=== PATIENT | female | born 1955 | race Caucasian/White ===

== ENCOUNTER → 2017-08-29 13:39 | Outpatient (CLI) | payer OTHER, SELFPAY ==
--- NOTE | 2017-08-29 14:00 | ECHOD_ITS ---
Reason For Study: HTN Procedure This was a 2D Doppler, Color Flow transthoracic echocardiogram. Exam performed in department. Left Ventricle Normal LV size. Left ventricular systolic function is lower limits of normal. The estimated ejection fraction is 52 %. Transmitral diastolic flow velocities suggest mild (stage 1) diastolic dysfunction (reversed pattern). No regional wall motion abnormalities noted. Right Ventricle Normal RV size. Normal systolic function. Atria Normal left atrium. Normal right atrium. Mitral Valve Normal mitral valve. Tricuspid Valve Normal tricuspid valve. Mild tricuspid valve insufficiency. Pulmonary artery systolic pressure is 27 mmHg. Aortic Valve Normal aortic valve. Trisinus/trileaflet aortic valve. Pulmonic Valve Normal pulmonic valve. Great Vessels Normal aortic root. The pulmonary artery is normal size. Normal inferior vena cava. Pericardium/Pleural No pericardial effusion. MMode/2D Measurements & Calculations LVIDd: 3.9 cm IVSd: 0.98 cm Ao root diam: 3.1 cm LVIDs: 2.6 cm LVPWd: 1.1 cm LA dimension: 3.8 cm RVDd: 3.2 cm FS: 32.3 % LAV(MOD-bp): 48.0 ml LA A4 area: 19.2 cm2 RA A4 area: 12.3 cm2 LAV(MOD-bp) Indexed: 26.0 ml/m2 LAV(MOD-sp2): 35.2 ml LAV(MOD-sp4): 56.1 ml Doppler Measurements & Calculations MV E max deion: 71.3 cm/sec Lat Peak E' Deion: 8.7 cm/sec Med Peak E' Deion: 4.9 cm/sec MV A max deion: 103.6 cm/sec E/E' lat: 8.2 E/E' med: 14.5 MV E/A: 0.69 Ao V2 max: 131.9 cm/sec LV V1 max: 89.1 cm/sec PA V2 max: 99.3 cm/sec Ao max P.0 mmHg LV V1 max P.2 mmHg TR max deion: 235.7 cm/sec TR max P.7 mmHg Interpretation Summary Normal LV size. Left ventricular systolic function is lower limits of normal. The estimated ejection fraction is 52 %. Transmitral diastolic flow velocities suggest mild (stage 1) diastolic dysfunction (reversed pattern). Compared to prior study, there is no significant change. Ordering Physician: Mayco Galeano Referring Physician: Mitch Mejia Performed By: Izzy Jensen RDCS
== END ==
PROVIDERS: Family Provider Family Medicine; PCP Family Medicine; Visit Provider Internal Medicine Cardiovascular Disease
DX: I42.9 Cardiomyopathy, unspecified (principal); I10 Essential (primary) hypertension
CPT/HCPCS: 93306

== ENCOUNTER → 2018-05-05 15:35 | Outpatient (CLI) | payer OTHER, SELFPAY ==
--- NOTE | 2018-05-05 15:37 | ECHODONC_ITS ---
Reason For Study: CMP/ CHEMOTHERAPY Procedure This was a 2D Doppler, Color Flow transthoracic echocardiogram. Myocardial strain analysis was performed in this exam to aid in the assessment of cardiac function. Exam performed in department. Left Ventricle Normal LV size. Left ventricular systolic function is lower limits of normal. The estimated ejection fraction is 53 %. The global longitudinal strain = -19.4 % (normal). Stage 1 diastolic dysfunction. No regional wall motion abnormalities noted. Right Ventricle Normal RV size. Normal systolic function. Atria Normal left atrium. Normal right atrium. Mitral Valve Normal mitral valve. Mild (1+) eccentric mitral valve insufficiency. Tricuspid Valve Normal tricuspid valve. Mild (1+) tricuspid valve insufficiency. Pulmonary artery systolic pressure is 27 mmHg. Aortic Valve Trisinus/trileaflet aortic valve. Pulmonic Valve Normal pulmonic valve. Great Vessels Normal aortic root. The pulmonary artery is normal size. Normal inferior vena cava. Pericardium/Pleural No pericardial effusion. MMode/2D Measurements & Calculations LVIDd: 4.1 cm IVSd: 0.76 cm Ao root diam: 3.4 cm LVIDs: 3.0 cm LVPWd: 0.82 cm RVDd: 3.0 cm FS: 28.4 % LAV(MOD-sp4): 34.7 ml LVAd ap4: 28.7 cm2 SV(MOD-sp4): 45.9 ml EDV(MOD-sp4): 86.1 ml EDV(sp4-el): 89.2 ml LVAs ap4: 17.3 cm2 ESV(MOD-sp4): 40.2 ml ESV(sp4-el): 41.2 ml EF(MOD-sp4): 53.3 % EF(sp4-el): 53.8 % SV(sp4-el): 48.0 ml LA A4 area: 14.5 cm2 LA dimension(2D): 3.0 cm RA A4 area: 8.7 cm2 Time Measurements MV dec time: 0.30 sec Doppler Measurements & Calculations MV E max deion: 54.8 cm/sec Lat Peak E' Deion: 6.8 cm/sec Med Peak E' Deion: 4.3 cm/sec MV A max deion: 96.7 cm/sec E/E' lat: 8.1 E/E' med: 12.7 MV E/A: 0.57 Ao V2 max: 110.9 cm/sec LV V1 max: 92.4 cm/sec PA V2 max: 115.4 cm/sec Ao max P.9 mmHg LV V1 max P.4 mmHg TR max deion: 241.8 cm/sec TR max P.5 mmHg Interpretation Summary Normal LV size. Left ventricular systolic function is lower limits of normal. The estimated ejection fraction is 53 %. The global longitudinal strain = -19.4 % (normal). Stage 1 diastolic dysfunction. Pulmonary artery systolic pressure is 27 mmHg. Ordering Physician: Mayco Galeano Referring Physician: Mayco Galeano Performed By: Pilar Villeda, RDCLARISA, RVT
--- OUTSIDE RECORDS SUMMARY | 2018-06-30 14:36 | XMS RPT_ITS ---
:1955 Author Organization OHIP Care Team Providers Name Role Phone CAITY COTE ([facility]) Referring Unavailable CAITY COTE ([facility]) Referring Unavailable MASCRajiv, RIP Borja Referring Unavailable MASCI, RIP Borja Referring Unavailable MASCI, RIP Borja Attending Unavailable MASCI, RIP A Referring Unavailable MASCI, RIP A Referring Unavailable MASCI, RIP A Referring Unavailable MASCI, RIP A Referring Unavailable MASCI, RIP A Referring Unavailable CAITY COTE ([facility]) Attending Unavailable RIP RIVERS Referring Unavailable ENEIDA HUERTAS ([facility]) Attending Unavailable CAITY COTE ([facility]) Referring Unavailable MASCRajiv, RIP A Referring Unavailable MASCRajiv, RIP A Referring Unavailable CAITY COTE ([facility]) Referring Unavailable LEEANNA DORADO Attending Unavailable MASCI, RIP Borja Referring Unavailable LEEANNA DORADO Attending Unavailable MASCRajiv, RIP Borja Referring Unavailable CAITY COTE ([employer]) Referring Unavailable CAITY COTE ([employer]) Attending Unavailable CAITY COTE ([employer]) Referring Unavailable MASCI, RIP Borja Referring Unavailable ENEIDA HUERTAS ([employer]) Attending Unavailable CAITY COTE ([employer]) Referring Unavailable Waleska, Midland Attending Unavailable Masci, Rip Referring Unavailable TOMARMNADO KLEIN Primary Care Unavailable Waleska, [place] Attending Unavailable Masci, Rip Referring Unavailable Waleska, Mayco Attending Unavailable Waleska, Mayco Referring Unavailable Waleska, Mayco Attending Unavailable Waleska, Mayco Referring Unavailable TOMARMANDO KLEIN Primary Care Unavailable Riki, Rip Consulting Unavailable Waleska, Mayco Attending Unavailable Waleska, Midland Referring Unavailable Waleska, [place]land Attending Unavailable TOMCHAK, ARMANDO Referring Unavailable Waleska, Mayco Attending Unavailable Waleska, Amyco Referring Unavailable TOMERNIE, ARMANDO Primary Care Unavailable Silvestre, Rip Consulting Unavailable Waleska, Mayco Attending Unavailable TOMCHAK, ARMANDO Referring Unavailable PROBLEMS PROBLEMS DATE TYPE CONDITION / CODE ATTENDING STATUS SOURCE 05/18/2018 Active Encounter for Active [facility] screening mammogram [facility] Main for malignant neoplasm [place] of breast / Repository Z12.31(ICD-10) 05/09/2018 Unknown I42.9 - Waleska, Mayco Active [place] [facility]omy[facility], Community unspecified / Hospital I42.9(ICD-10) Repository 11/29/2017 Unknown Z51.11 - Encounter for Waleska, Midland Active [facility] antineoplastic [facility] chemotherapy / Hospital Z51.11(ICD-10) Repository 08/29/2017 Unknown I10 - Essential Waleska, Mayco Active [place] (primary) hypertension Community / I10(ICD-10) Hospital Repository 07/26/2017 Active Toxic gastroenteritis NA Active [facility] and colitis / Clinic Main K52.1(ICD-10) [place] Repository 07/26/2017 Active Adverse effect of NA Active [facility] antineoplastic and Clinic Main immunosuppressive [place] drugs, initial Repository encounter / T45.1X5A(ICD-10) 03/02/2017 Active Malignant neoplasm of [facility] lower-inner quadrant Clinic Main of right female breast [place] / C50.311(ICD-10) Repository 03/02/2017 Active Estrogen receptor NA Active [facility] positive status (ER+) [facility] / Z17.0(ICD-10) [place] Repository 05/24/2017 Active Unknown / UNK(Unknown) NA Active [facility] Repository PROCEDURES PROCEDURES No Procedure Records FoundRESULTS RESULTS CNOV Observed: 05/18/2018 Status: COMPLETED Source: [place] 3:[address] [facility] REPOSITORY Office Visit (WOOB) RENATE CHRISTIANSEN Jonh ([id number]) 1955 F TAHIRA Date Time Provider Department 05/18/18 3:00 PM ENEIDA HUERTAS ([place]) WOOB During your visit today, we recorded the following information about you: Blood pressure Weight Height 122/74 93.9 kg 1.549 m Eneida Huertas APRN.CNP 05/18/2018 2:42 PM Signed Renate Christiansen is a 62 year old who presents for her annual gynecologic exam without complaints. Postmenopausal: Yes HRT use: No. Last Pap: 2016 normal HPV: 2016 negative History of abnormal pap: Yes Last mammogram: 2017 normal History of abnormal mammogram: Yes Sexually active: Yes Pain with intercourse: No Postcoital bleeding: No Vaginal dryness: Yes Obstetric History T0 L2 SAB0 TAB0 Ectopic0 Multiple0 Live Births0 PAST MEDICAL HISTORY Diagnosis Date - Breast cancer (HCC) - Scoliosis PAST SURGICAL HISTORY Procedure Laterality Date - APPENDECTOMY - BREAST BIOPSY Right toxoplasmosis/cyst removal - BREAST LUMPECTOMY HX 02/26/2016 right - CHG DELIVERY x2 - COLONOSCOPY 2013 X2 - PAST SURGICAL HISTORY OF back surgery for scoliosis X2 - PAST SURGICAL HISTORY OF 05/2014 pre cancerous mole removed from back - TUBAL LIGATION HX FAMILY HISTORY Problem Relation Age of Onset - Cancer Maternal Grandfather testicular - Cancer Mother melanoma SOCIAL HISTORY Social History Substance Use Topics - Smoking status: Never Smoker - Smokeless tobacco: Never Used - Alcohol use No REVIEW OF SYSTEMS Abdomen: No abdominal pain, nausea, vomiting, diarrhea, or constipation. No bloating, early satiety, indigestion, or increased flatulence. Bladder: No dysuria, gross hematuria, urinary frequency, urinary urgency, or incontinence Breast: No breast lumps, nipple d/c, overlying skin changes, redness or skin retraction Allergies and current medication updated:Yes EXAM: Ht 5' 1 (1.55m) Wt 207 lb (93.9kg) BMI 39.13 kg/(m2). GENERAL: pleasant, female in no apparent distress HEENT: Normocephalic, atraumatic, mucus membranes moist and no lesions NECK: Supple, full range of motion, no adenopathy and thyroid normal DERMATOLOGY: Normal, without lesions, non-icteric and non-hirsute BREAST: soft, non-tender, symmetric, no dominant mass, normal nipple-areolar complex, no lymphadenopathy and no nipple discharge CHEST: Normal inspiratory effort ABDOMEN: soft, non-tender and no masses PELVIC: external genitalia normal, normal Bartholin's glands, urethra, [place]'s glands, no vulvar lesions, no cervical lesions, physiologic discharge present, normal appearing perineal body and perianal region BIMANUAL: uterus normal size, shape and consistency, no adnexal masses, non-tender and no cervical motion tenderness RECTOVAGINAL: deferred. NEURO: alert and oriented x3,exam grossly non-focal EXTREMITIES: normal ASSESSMENT/PLAN: 1) Health maintenance: Pap done with HPV. Mammogram up to date Nutrition, exercise and routine health maintenance exams reviewed. Calcium/Vitamin D supplementation information provided. 2) Follow up one year or sooner as needed Eneida Huertas APRN.[employer] SUPERVISOR Referring Provider: CAITY COTE [[id number]] Allergies As of Date: 05/18/2018 Noted Allergy Reaction NERATINIB 07/27/2017 4 - Hives Comments: Hives/itching/ nausea vomiting and diarrhea AMOXIL (AMOXICILLIN) 02/20/2016 2 - Rash ASPIRIN 02/20/2016 14 - Other: See Comments Comments: Internal bleeding CEPHALOSPORINS 02/20/2016 16 - Unknown CIPROCINONIDE 02/20/2016 16 - Unknown CODEINE 02/20/2016 16 - Unknown DEMEROL (MEPERIDINE (PF)) 02/20/2016 16 - Unknown ERYTHROMYCIN 02/20/2016 16 - Unknown LATEX 03/18/2016 2 - Rash NORCO (HYDROCODONE-ACETAMINOPHEN) 03/04/2016 4 - Hives NUBAIN (NALBUPHINE HCL) 02/20/2016 16 - Unknown PERCOCET (OXYCODONE-ACETAMINOPHEN)03/29/2016 2 - Rash 9 - Itching PREDNISONE 02/20/2016 16 - Unknown Comments: per pt, this was given when had appendicitis and received multiple meds and she developed a rash and they had given her prednisone but at some point it was thought that it wasn't working and maybe it was part of the problem. RYE 02/20/2016 14 - Other: See Comments Comments: Migraine headache SULFA (SULFONAMIDE ANTIBIOTICS) 02/20/2016 14 - Other: See Comments Comments: Fever/Gi upset/listless Date Reviewed: 05/18/2018 [facility]ed [facility]: [facility] Kiya - Fully Assessed Reason for Visit: Yearly Exam [187] Primary Visit Diagnosis:Encounter for gynecological examination (general) (routine) without abnormal findings [Z01.419] Other Visit Diagnoses:Encounter for screening mammogram for breast cancer [Z12.31] Screening for malignant neoplasm of cervix [Z12.4] Special screening examination for human papillomavirus (HPV) [Z11.51] Order(s):MAXIM SCREENING [[id number]] Order #: [id number] FUTURE PAP FLUID CERVICAL SCREENING [[id number]] Order #: [id number] Prescriptions as of 05/18/2018 Sig: ANASTROZOLE 1 MG TABLET TAKE 1 TABLET BY MOUTH ONCE D* CALCIUM+D ORAL Take 1 tablet by mouth once d* COMPOUNDED PRESCRIPTION Cumin and tumeric 500mg daily DIPHENHYDRAMINE 25 MG TABLET Take 25 mg by mouth twice juan luis* DIPHENOXYLATE-ATROPINE 2.5 MG* Take 1-2 tablets by mouth sohail* GABAPENTIN 300 MG CAPSULE Take 1 capsule by mouth once * LIDOCAINE-PRILOCAINE 2.5 %-2.* Apply to port site 20 min.roxanne* LOSARTAN 50 MG TABLET Take 50 mg by mouth once vivek* MULTIVITAMIN TABLET Take 1 tablet by mouth once d* PROMETHAZINE 25 MG TABLET Take 1 tablet by mouth every * TRAMADOL 50 MG TABLET Take 1 tablet by mouth every * Problem List As Of Date 05/18/2018 Noted Resolved Malignant neoplasm of lower-inner quadrant of r*INVALID FOR* 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 Follow-up and Disposition History Recorded Encounter Status:Closed by ENEIDA HUERTAS on 05/18/18 HPV W/GENOTYPE Collected: 05/18/2018 Status: F Source: [place] 2:[address] [facility] REPOSITORY TYPE CODE TESTS RESULT OUT OF REFERENCE UNITS RANGE LAB HPVT16 HPV HighRisk Negative for Type 16 HPV DNA high risk type 16 by PCR. LAB HPVT18 HPV HighRisk Negative for Type 18 HPV DNA high risk type 18 by PCR. LAB HPVHRO HPV HighRisk Negative for Other HPV DNA high risk types: 31,33,35,39,45 ,51,52,56,58,5 9,66,68 by PCR. Result Comment: This test was developed and its performance characteristics determined by [facility]'s [facility] [place] ([facility] It has not been cleared or approved by the FDA. -[facility] is regulated under CLIA as qualified to perform high-complexity testing. This test is used for clinical purposes. It should not be regarded as inv estigational or for research. Performed By: #### HPVHRR #### [facility] [address], [place] [address] CNCO Observed: 05/18/2018 Status: COMPLETED Source: [place] 2:[address] [facility] REPOSITORY HNO ID: [id number] Author: Mammography Coordinator Service: (none) Author Type: Physician Type: Letter Filed: 05/22/2018 11:31 PM Note Text: May 18, 2018 PID: [id number] Renate BorjaPablo Christiansen [address] [place] [address] Dear Ms. Christiansen, We are pleased to inform you that the results of your recent breast imaging exam on 05/18/2018 are normal. Your mammogram demonstrates that you have dense breast tissue, which could hide abnormalities. Dense breast tissue, in and of itself, is a relatively common condition. Therefore, this information is not provided to cause undue concern; rather, it is to raise your awareness and promote discussion with your health care provider regarding the presence of dense breast tissue in addition to other risk factors. Early detection of cancer is very important. We also understand recommendations regarding breast cancer screening are controversial. Please discuss with your primary care provider which strategy is best for you and whether a mammogram is right for you. Your imaging studies and report will be kept on file at [facility] as part of your permanent medical record and are available for your continuing care. Thank you for allowing us to help in meeting your health care needs. Sincerely, Dr. Lucas Interpreting Radiologist [facility] (Normal over 40) PROGRESS Observed: 05/18/2018 Status: COMPLETED Source: [place] 2:14 PM [facility] REPOSITORY HNO ID: [id number] Author: Eneida Garcia) Kiya Service: (none) Author Type: Nurse Practitioner Type: Progress Notes Filed: 05/18/2018 2:42 PM Note Text: Renate Christiansen is a 62 year old who presents for her annual gynecologic exam without complaints. Postmenopausal: Yes HRT use: No. Last Pap: 2017 normal HPV: 2017 negative History of abnormal pap: Yes Last mammogram: 2018 normal History of abnormal mammogram: Yes Sexually active: Yes Pain with intercourse: No Postcoital bleeding: No Vaginal dryness: Yes Obstetric History T0 L2 SAB0 TAB0 Ectopic0 Multiple0 Live Births0 PAST MEDICAL HISTORY Diagnosis Date - Breast cancer (HCC) - Scoliosis PAST SURGICAL HISTORY Procedure Laterality Date - APPENDECTOMY - BREAST BIOPSY Right toxoplasmosis/cyst removal - BREAST LUMPECTOMY HX 02/26/2016 right - CHG DELIVERY x2 - COLONOSCOPY 2013 X2 - PAST SURGICAL HISTORY OF back surgery for scoliosis X2 - PAST SURGICAL HISTORY OF 05/2014 pre cancerous mole removed from back - TUBAL LIGATION HX FAMILY HISTORY Problem Relation Age of Onset - Cancer Maternal Grandfather testicular - Cancer Mother melanoma SOCIAL HISTORY Social History Substance Use Topics - Smoking status: Never Smoker - Smokeless tobacco: Never Used - Alcohol use No REVIEW OF SYSTEMS Abdomen: No abdominal pain, nausea, vomiting, diarrhea, or constipation. No bloating, early satiety, indigestion, or increased flatulence. Bladder: No dysuria, gross hematuria, urinary frequency, urinary urgency, or incontinence Breast: No breast lumps, nipple d/c, overlying skin changes, redness or skin retraction Allergies and current medication updated:Yes EXAM: Ht 5' 1 (1.55m) Wt 207 lb (93.9kg) BMI 39.13 kg/(m2). GENERAL: pleasant, female in no apparent distress HEENT: Normocephalic, atraumatic, mucus membranes moist and no lesions NECK: Supple, full range of motion, no adenopathy and thyroid normal DERMATOLOGY: Normal, without lesions, non-icteric and non-hirsute BREAST: soft, non-tender, symmetric, no dominant mass, normal nipple-areolar complex, no lymphadenopathy and no nipple discharge CHEST: Normal inspiratory effort ABDOMEN: soft, non-tender and no masses PELVIC: external genitalia normal, normal Bartholin's glands, urethra, [place]'s glands, no vulvar lesions, no cervical lesions, physiologic discharge present, normal appearing perineal body and perianal region BIMANUAL: uterus normal size, shape and consistency, no adnexal masses, non-tender and no cervical motion tenderness RECTOVAGINAL: deferred. NEURO: alert and oriented x3,exam grossly non-focal EXTREMITIES: normal ASSESSMENT/PLAN: 1) Health maintenance: Pap done with HPV. Mammogram up to date Nutrition, exercise and routine health maintenance exams reviewed. Calcium/Vitamin D supplementation information provided. 2) Follow up one year or sooner as needed Eneida Huertas APRN.CNP [facility] SCREENING Observed: 05/18/2018 Status: F Source: [place] 1:52 PM [facility] REPOSITORY * * *Final Report* * * DATE OF EXAM: May 18 2018 1:52PM [facility]NE [id number] - [facility] SCREENING / PROCEDURE REASON: multiple diagnoses * * * * Physician Interpretation * * * * RESULT: #[id number] - [facility] SCREENING BILATERAL DIGITAL SCREENING MAMMOGRAM WITH CAD: 05/18/2018 HISTORY: Multiple Diagnoses /Screening Mammogram - patient reports NO symptoms /priors available for comparison. RESULT: TECHNIQUE: The study was acquired using full field digital technology and interpreted from soft copy. Current study was also evaluated with a Computer Aided Detection (CAD). Comparison is made to exams dated: 11/22/2017 mammogram, 05/24/2017 ultrasound, 05/24/2017 mammogram - [facility], and 05/16/2017 mammogram - [facility]. The tissue of both breasts is heterogeneously dense. This may lower the sensitivity of mammography. There is a benign focal asymmetry in the right breast. No significant masses, calcifications, or other findings are seen in either breast. There has been no significant interval change. IMPRESSION: There is no mammographic evidence of malignancy. A 1 year screening mammogram is recommended. Bruno reilly/alicia:05/18/2018 14:20:39 Head Silverman(s): RT Eunice(R)(M), [facility] letter sent: Normal over 40 Mammogram BI-RADS: 2 Benign finding Multiple national specialty organizations have released breast cancer screening guidelines for women at average risk for developing breast cancer - guidelines that are based on both evidence and opinion, yet differ on when to start and how often to screen for breast cancer. With representation from Breast Imaging, Internal Medicine, Women's Health, Family Medicine, and Medical/Surgical Oncology, the [facility] has carefully reviewed the data and reached the following consensus: 1) All women should engage in shared decision-making with their providers to decide when to start and how often to screen; 2) All women should have the opportunity to start screening mammography at age 40; 3) For women ages 45-55, we recommend annual screening mammograms; 4) For women ages 55 and over, we support both the transition from an annual to a biennial interval if this aligns more with patient's values and preferences, or continuation with annual screening; 5) All women should discuss with their providers when to stop screening mammograms. Cotton Roll Packer: Alicia Transcribe Date/Time: May 18 2018 1:52P Dictated by: BRUNO LUCAS DO This examination was interpreted and the report reviewed and electronically signed by: BRUNO LUCAS DO on May 18 2018 2:20PM EST [id number] Observed: 05/18/2018 Status: COMPLETED Source: [place] 1:30 PM [facility] REPOSITORY HNO ID: [id number] Author: Annamaria Gonzales Rt Service: (none) Author Type: (none) Type: Progress Notes Filed: 05/18/2018 1:56 PM Note Text: Radiology Service Progress Note PATIENT NAME: Renate Christiansen DATE OF SERVICE: May 18, 2018 TIME: 1:30 PM PATIENT IDENTITY VERIFICATION COMPLETED USING TWO (2) METHODS: Patient confirmed name verbally and Date of . PATIENT GENDER DATA: Female. status: : No status: NO. PATIENT RELEVANT IMPLANT DATA REVIEWED: Not Applicable RADIOLOGY DEPARTMENT: [facility] mammogram PERIPHERAL IV DATA: Not applicable SIGNED BY: Annamaria Gonzales Rt May 18, 2018 1:30 PM CARDIOLOGY VISIT Observed: 05/09/2018 Status: F Source: [place] REPORT 3:48 PM [facility] REPOSITORY [facility] [address] [place] [address] OFFICE VISIT Date of Service: 05/09/18 MR#: [id number] Acct: [id number] Name: RENATE CHRISTIANSEN Rep #: [id number] : 1955 Provider: Mayco Galeano MD Age/Sex: 62/F Location: [facility] Status: Signed HPI HPI Chief Complaint: Follow-up visit. Details: RENATE CHRISTIANSEN, is a 62 F who presents to the office today for a follow-up cardiovascular visit. She is a pleasant 61-year-old lady with a history of breast carcinoma status post mastectomy and chemotherapy on Herceptin. She has been having serial echocardiograms. She did have an echocardiogram in March 2016 at that time he demonstrated ejection fraction of 72%. Another echocardiogram in September 2016 demonstrated ejection fraction of 55%. In November 2016 was noted to be 50% and more recently in May of 2017 is 45% with mild global hypokinesis. She has not had any pedal edema no chest pain no paroxysmal nocturnal dyspnea or pedal edema. Most recent echocardiogram in August of this year demonstrated an ejection fraction of 52% and she has been doing remarkably well. She has been compliant with her other medications and continues to follow with the oncologist the nurse. Her physical exam demonstrates clear lung barnes regular rate and rhythm and no pedal edema. Intake Vital Signs05/09/18 Height 5 ft 1 in 05/09/18 Weight: 206 lb 05/09/18 Body Mass Index (BMI) 38.9 05/09/18 Blood Pressure 132/78 H 05/09/18 Blood Pressure Location Lt brachial Intake Visit Reasons: 6 M FU Ict Project Manager Required: No Is patient in pain?: No Allergies acetaminophen [From Percocet] Allergy (Verified 05/09/18 15:31) hives and nausea amoxicillin Allergy (Verified 05/09/18 15:31) Fever and skin rash aspirin Allergy (Verified 05/09/18 15:31) Upset Stomach Cephalosporins Allergy (Verified 05/09/18 15:31) Fever and skin rash ciprofloxacin [From Cipro] Allergy (Verified 05/09/18 15:31) Fever and skin rash codeine Allergy (Verified 05/09/18 15:31) Fever and skin rash erythromycin base Allergy (Verified 05/09/18 15:31) Fever and skin rash hydrocodone [From [place]] Allergy (Verified 05/09/18 15:31) hives and nausea latex Allergy (Verified 05/09/18 15:31) Rash meperidine [From Demerol] Allergy (Verified 05/09/18 15:31) Upset Stomach nalbuphine [From Nubain] Allergy (Verified 05/09/18 15:31) Fever and skin rash oxycodone [From Percocet] Allergy (Verified 05/09/18 15:31) hives and nausea prednisone Allergy (Verified 05/09/18 15:31) Unknown Sulfa (Sulfonamide Antibiotics) Allergy (Verified 05/09/18 15:31) Fever and skin rash RYE Allergy (Uncoded 04/19/16 18:24) Other Medications Metoprolol(XL)Succ [Toprol Xl (Beta Ruth)] 25 mg PO DAILY 04/19/16 [History Confirmed 05/09/18] acetaminophen 325 mg tablet 325 mg PO .prn PRN tab 05/31/17 [History Confirmed 05/09/18] anastrozole 1 mg tablet 1 mg PO QDAY 05/31/17 [History Confirmed 05/09/18] gabapentin 100 mg capsule 100 mg PO QDAY 05/31/17 [History Confirmed 05/09/18] losartan 50 mg tablet 50 mg PO QDAY #90 tab 07/18/17 [Rx Confirmed 05/09/18] PFSH Medical History Chemotherapy management, encounter for (Chronic) Breast cancer, right breast (Chronic) Cardiomyopathy, secondary (Chronic) Surgical History History of lumpectomy of right breast (Chronic) History of appendectomy (Resolved) Family History Sister A-fib CAD (coronary artery disease) Grandmother A-fib Social History Smoking Status: Never smoker alcohol intake: never substance use type: does not use caffeine: No what type of physical activity do you participate in: none seatbelt use: always do you feel safe at home: Yes ROS Const Const: Negative for fatigue, weakness, night sweats, excessive sweating, frequent falls, headache(s) or daytime sleepiness Eyes Eyes: Negative for loss of peripheral vision, transient loss of vision, blind spots, double vision or blurry vision ENT ENT: Negative for headache(s), dizziness, balance problems, Nosebleed/epistaxis, tongue swelling or lip swelling Cardio Chest Pain: No Palpitations: No Edema: None Muscle aches with walking: None Resp Respiratory: Negative for SOB at rest, SOB orthopnea\SOB lying down, Cough, paroxysmal nocturnal dyspnea or SOB with activity GI GI: Negative nausea, vomiting, heartburn, black,tarry stools or bright, red blood in stools : Negative for hematuria Musc Musc: Negative for balance problems, muscle aches/ myalgia, muscle weakness or joint pain Skin Skin: Negative non-healing lesions, unusual bruising or rash Neuro Neuro: Negative for weakness, frequent falls, headache(s), double vision, dizziness, lightheadedness, orthostatic symptoms, blurry vision or lack of coordination Santino Hematologic/Lymphatic: Negative for easy bruising or easy bleeding Endo Endo: Negative for fatigue, excessive sweating, cold intolerance, heat intolerance, increased thirst/drinking or hair loss Psych Psych: Negative for anxiety or depression Allergy Allergy/Immunology: Negative for throat swelling, Negative for tongue swelling, Negative for hives, Negative for rash, Negative for lip swelling Cardiology Exam Const Appearance: cooperative, healthy appearing, well developed, well groomed and no acute distress Nutritional Appearance: well nourished and average body habitus Orientation: alert, awake and oriented x3 Head Head: normal to inspection, normocephalic and atraumatic Ears: hearing grossly normal bilaterally and external ears normal Nose: external nose normal, nasal mucous membranes and turbinates normal, nares normal, septum normal, no nasal discharge Face and Sinus: face symmetric Mouth: oral mucosae normal, tongue normal, oropharynx normal and moist mucous membranes Teeth and gingiva: dentition normal Throat: posterior oropharynx normal, tonsils normal and uvula midline Eyes General: appearance normal, both eyes and all related structures Eyelids: eyelids normal Conjunctivae: conjunctivae normal Pupils: PERRL, normal by confrontation and accommodation normal EOM: EOM intact bilaterally Neck Neck: normal visual inspection, trachea midline and no JVD JVD: +5 Carotids: normal carotid upstroke and bounding pulses Chest Chest inspection: normal inspection of the chest, symmetric chest movement and normal respiratory effort Auscultation: Bilateral: Clear to Auscultation Cardio Palpation: normal PMI Rate: regular rate Rhythm: regular rhythm Heart sounds: S1 normal, S2 normal and normal, physiologic split S2; negative rub, gallop or murmur GI GI: normal to inspection, soft, no hepatosplenomegaly and bowel sounds present Neuro General: alert, awake, oriented x3, no focal sensory deficit, gait normal and moves all extremities Skin Skin: no rashes or lesions noted Extremities Pulses: Normal: Right Femoral Pulse, Left Femoral Pulse, Right Dorsalis Pedis Pulse, Left Dorsalis Pedis Pulse, Right Posterior Tibial Pulse, Left Posterior Tibial Pulse, Right Radial Pulse, Left Radial Pulse Lower Extremity Edema: None: Bilateral Musculoskel Musculoskeletal: No joint tenderness Psych Psychological: normal affect Assessment AND Plan 1. 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 She recently had an echocardiogram in April of this year which demonstrated an ejection fraction of 53%. The global longitudinal strain was -19.4%. There was stage 1 diastolic dysfunction pulmonary artery systolic pressure was 27 mmHg. My recommendation at this stage will be for her to continue the same medications without making any changes and I will continue to see her on a yearly basis. 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 05/09/18 1548 <Electronically signed by Mayco Galeano MD> Date Mayco Galeano MD Cosign Signature: Date (if applicable) CC: Armando Mejia MD ONC ECHOCARDIOGRAM Observed: 05/08/2018 Status: F Source: [place] COMPLETE 7:58 AM [facility] [place] REPOSITORY [facility] Cardiovascular Services [address] [place] [address] ONC Echo Complete 05/05/18 1546 MR#: [id number] Acct: [id number] Name: RENATE CHRISTIANSEN Rep #: [id number] : 1955 62 From: Mayco Galeano MD Attending Dr: Mayco Galeano MD Status: REG CLI Ordering Dr: Mayco Galeano MD Date: 05/05/18 Location: [facility] Sex: F C Admitted: Reason For Study: CMP/ CHEMOTHERAPY Procedure This was a 2D Doppler, Color Flow transthoracic echocardiogram. Myocardial strain analysis was performed in this exam to aid in the assessment of cardiac function. Exam performed in department. Left Ventricle Normal LV size. Left ventricular systolic function is lower limits of normal. The estimated ejection fraction is 53 %. The global longitudinal strain = -19.4 % (normal). Stage 1 diastolic dysfunction. No regional wall motion abnormalities noted. Right Ventricle Normal RV size. Normal systolic function. Atria Normal left atrium. Normal right atrium. Mitral Valve Normal mitral valve. Mild (1+) eccentric mitral valve insufficiency. Tricuspid Valve Normal tricuspid valve. Mild (1+) tricuspid valve insufficiency. Pulmonary artery systolic pressure is 27 mmHg. Aortic Valve Trisinus/trileaflet aortic valve. Pulmonic Valve Normal pulmonic valve. Great Vessels Normal aortic root. The pulmonary artery is normal size. Normal inferior vena cava. Pericardium/Pleural No pericardial effusion. MMode/2D Measurements AND Calculations LVIDd: 4.1 cm IVSd: 0.76 cm Ao root diam: 3.4 cm LVIDs: 3.0 cm LVPWd: 0.82 cm RVDd: 3.0 cm FS: 28.4 % LAV(MOD-sp4): 34.7 ml LVAd ap4: 28.7 cm2 SV(MOD-sp4): 45.9 ml EDV(MOD-sp4): 86.1 ml EDV(sp4-el): 89.2 ml LVAs ap4: 17.3 cm2 ESV(MOD-sp4): 40.2 ml ESV(sp4-el): 41.2 ml EF(MOD-sp4): 53.3 % EF(sp4-el): 53.8 % SV(sp4-el): 48.0 ml LA A4 area: 14.5 cm2 LA dimension(2D): 3.0 cm RA A4 area: 8.7 cm2 Time Measurements MV dec time: 0.30 sec Doppler Measurements AND Calculations MV E max johnathan: 54.8 cm/sec Lat Peak E' Johnathan: 6.8 cm/sec Med Peak E' Johnathan: 4.3 cm/sec MV A max johnathan: 96.7 cm/sec E/E' lat: 8.1 E/E' med: 12.7 MV E/A: 0.57 Ao V2 max: 110.9 cm/sec LV V1 max: 92.4 cm/sec PA V2 max: 115.4 cm/sec Ao max P.9 mmHg LV V1 max P.4 mmHg TR max johnathan: 241.8 cm/sec TR max P.5 mmHg Interpretation Summary Normal LV size. Left ventricular systolic function is lower limits of normal. The estimated ejection fraction is 53 %. The global longitudinal strain = -19.4 % (normal). Stage 1 diastolic dysfunction. Pulmonary artery systolic pressure is 27 mmHg. Ordering Physician: Mayco Galeano Referring Physician: Mayco Galeano Performed By: Pilar Villeda, STACIE, RVT 05/08/18 0757 Date Mayco Galeano MD CC: Mayco Galeano MD; Armando Mejia MD Date Dictated: 05/05/18 1546 Date Transcribed: 05/08/18 5717 Cotton Roll Packer: Signed CARDIOLOGY VISIT Observed: 11/29/2017 Status: F Source: [place] REPORT 3:37 PM [facility] [place] REPOSITORY [facility] [address] [place] [address] OFFICE VISIT Date of Service: 11/29/17 MR#: [id number] Acct: [id number] Name: RENATE CHRISTIANSEN Rep #: [id number] : 1955 Provider: Mayco Galeano MD Age/Sex: 62/F Location: [facility] [place] Status: Signed HPI HPI Chief Complaint: Follow-up visit. Details: RENATE CHRISTIANSEN, is a 62 F who presents to the office today for a follow-up cardiovascular visit. She is a pleasant 61-year-old lady with a history of breast carcinoma status post mastectomy and chemotherapy on Herceptin. Who is been having serial echocardiograms. She did have an echocardiogram in March 2016 at that time he demonstrated ejection fraction of 72%. Another echocardiogram in September 2016 demonstrated ejection fraction of 55%. In November of this year was noted to be 50% and more recently in May is 45% with mild global hypokinesis. She has not had any pedal edema no chest pain no paroxysmal nocturnal dyspnea or pedal edema. Most recent echocardiogram in August of this year demonstrated an ejection fraction of 52% and she has been doing remarkably well. She has been compliant with her other medications and continues to follow with the oncologist the nurse. At this time I do not see any evidence of heart failure. Her physical exam demonstrates clear lung barnes regular rate and rhythm and no pedal edema she remains on the metoprolol as well as the losartan. With good blood pressure control. Intake Vital Signs11/29/17 Height 5 ft 1.5 in 11/29/17 Weight: 205 lb 11/29/17 Body Mass Index (BMI) 38.1 11/29/17 Blood Pressure 130/70 Intake Visit Reasons: 6 M FU Accompanied by: Is patient in pain?: No Allergies acetaminophen [From Percocet] Allergy (Verified 11/29/17 14:35) hives and nausea amoxicillin Allergy (Verified 11/29/17 14:35) Fever and skin rash aspirin Allergy (Verified 11/29/17 14:35) Upset Stomach Cephalosporins Allergy (Verified 11/29/17 14:35) Fever and skin rash ciprofloxacin [From Cipro] Allergy (Verified 11/29/17 14:35) Fever and skin rash codeine Allergy (Verified 11/29/17 14:35) Fever and skin rash erythromycin base Allergy (Verified 11/29/17 14:35) Fever and skin rash hydrocodone [From [place]] Allergy (Verified 11/29/17 14:35) hives and nausea latex Allergy (Verified 11/29/17 14:35) Rash meperidine [From Demerol] Allergy (Verified 11/29/17 14:35) Upset Stomach nalbuphine [From Nubain] Allergy (Verified 11/29/17 14:35) Fever and skin rash oxycodone [From Percocet] Allergy (Verified 11/29/17 14:35) hives and nausea prednisone Allergy (Verified 11/29/17 14:35) Unknown Sulfa (Sulfonamide Antibiotics) Allergy (Verified 11/29/17 14:35) Fever and skin rash RYE Allergy (Uncoded 04/19/16 18:24) Other Medications Metoprolol(XL)Succ [Toprol Xl (Beta Ruth)] 25 mg PO DAILY 04/19/16 [History Confirmed 11/29/17] acetaminophen 325 mg tablet 325 mg PO .prn PRN tab 05/31/17 [History Confirmed 11/29/17] anastrozole 1 mg tablet 1 mg PO QDAY 05/31/17 [History Confirmed 11/29/17] gabapentin 100 mg capsule 100 mg PO QDAY 05/31/17 [History Confirmed 11/29/17] mxhgfkbjlssp-Dq-lgrv-minerals tablet tab PO 06/02/17 [History Confirmed 11/29/17] losartan 50 mg tablet 50 mg PO QDAY #90 tab 07/18/17 [Rx Confirmed 11/29/17] turmeric root extract 500 mg capsule 500 mg PO QDAY 11/29/17 [History Confirmed 11/29/17] [facility] Medical History Chemotherapy management, encounter for (Chronic) Breast cancer, right breast (Chronic) Cardiomyopathy, secondary (Chronic) Surgical History History of lumpectomy of right breast (Chronic) History of appendectomy (Resolved) Family History Sister A-fib CAD (coronary artery disease) Grandmother A-fib Social History Smoking Status: Never smoker alcohol intake: never substance use type: does not use caffeine: No what type of physical activity do you participate in: none seatbelt use: always do you feel safe at home: Yes ROS Const Const: Negative for fatigue, weakness, body ache, fever(s), headache(s), chills, frequent falls, night sweats, daytime sleepiness, difficulty sleeping, excessive sweating, weight gain, weight loss, increased appetite, poor appetite, anorexia or other Eyes Eyes: Negative for blind spots, loss of peripheral vision, transient loss of vision, blurry vision, change in vision, double vision, floaters, tunnel vision or other ENT ENT: Negative for headache(s), dizziness, hearing loss, tinnitus, Nosebleed/epistaxis, balance problems, post nasal drip, lip swelling, tongue swelling, bleeding gums, hoarseness, neck pain, dry mouth or other Cardio Chest Pain: No Palpitations: No Edema: None Muscle aches with walking: None Resp Respiratory: Negative for SOB with activity, SOB at rest, SOB orthopnea\SOB lying down, Coughing up blood/hemoptysis, chest congestion, pain on inspiration, snoring, stridor, wheezing, crackles, paroxysmal nocturnal dyspnea or other GI GI: Negative nausea, vomiting, heartburn, constipation, belching, bloating, cramping, vomiting blood/hematemesis, bright, red blood in stools, black,tarry stools, loose stools, Difficulty Swallowing or other : Negative for hematuria, frequent nighttime urination/ nocturia, erectile dysfunction or abnormal vaginal bleeding Musc Musc: Negative for balance problems, muscle aches/ myalgia, muscle weakness or joint pain Skin Skin: Negative redness, non-healing lesions, rash, unusual bruising, skin ulcer, wounds, jaundice or other Neuro Neuro: Negative for weakness, headache(s), frequent falls, blurry vision, double vision, dizziness, lightheadedness, near syncope, syncope, orthostatic symptoms, confusion, memory loss, restless legs, vertigo, seizures, lack of coordination or other Santino Hematologic/Lymphatic: Negative for easy bleeding, easy bruising, enlarged lymph nodes or other Endo Endo: Negative for fatigue, excessive sweating, cold intolerance, heat intolerance, flushing, increased thirst/drinking, increased hunger, hair loss, hair growth or other Psych Psych: Negative for anxiety, depression, thoughts of harming anyone, thoughts of harming yourself, visual hallucinations, panic attacks or audible hallucinations Allergy Allergy/Immunology: Negative for lip swelling, Negative for tongue swelling, Negative for rash, Negative for throat swelling, Negative for hives Cardiology Exam Const Appearance: cooperative, healthy appearing, well developed, well groomed and no acute distress Nutritional Appearance: well nourished and average body habitus Orientation: alert, awake and oriented x3 Head Head: normal to inspection, normocephalic and atraumatic Ears: hearing grossly normal bilaterally and external ears normal Nose: external nose normal, nasal mucous membranes and turbinates normal, nares normal, septum normal, no nasal discharge Face and Sinus: face symmetric Mouth: oral mucosae normal, tongue normal, oropharynx normal and moist mucous membranes Teeth and gingiva: dentition normal Throat: posterior oropharynx normal, tonsils normal and uvula midline Eyes General: appearance normal, both eyes and all related structures Eyelids: eyelids normal Conjunctivae: conjunctivae normal Pupils: PERRL, normal by confrontation and accommodation normal EOM: EOM intact bilaterally Neck Neck: normal visual inspection, trachea midline and no JVD JVD: +5 Carotids: normal carotid upstroke and bounding pulses Chest Chest inspection: normal inspection of the chest, symmetric chest movement and normal respiratory effort Auscultation: Bilateral: Clear to Auscultation Cardio Palpation: normal PMI Rate: regular rate Rhythm: regular rhythm Heart sounds: S1 normal, S2 normal and normal, physiologic split S2; negative rub, gallop or murmur GI GI: normal to inspection, soft, no hepatosplenomegaly and bowel sounds present Neuro General: alert, awake, oriented x3, no focal sensory deficit, gait normal and moves all extremities Skin Skin: no rashes or lesions noted Extremities Pulses: Normal: Right Femoral Pulse, Left Femoral Pulse, Right Dorsalis Pedis Pulse, Left Dorsalis Pedis Pulse, Right Posterior Tibial Pulse, Left Posterior Tibial Pulse, Right Radial Pulse, Left Radial Pulse Lower Extremity Edema: None: Bilateral Musculoskel Musculoskeletal: No joint tenderness Psych Psychological: normal affect Assessment AND Plan 1. 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 She remains on the losartan and the beta-ruth and she will be continued. I would not recommend that we make any other changes. I like to see her again in approximately 6 months and at that time I would suggest that we obtain an echocardiogram just prior to her visit. 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 REPOSITORY HNO ID: [id number] Author: Caity Cote Service: (none) Author Type: Nurse Practitioner Type: Progress Notes Filed: 11/29/2017 1:35 PM Note Text: Chief Complaint Patient presents with: Established Patient HPI: Renate Christiansen is a 62 year old female who presents here today for follow up breast cancer. Per Dr. Rivers's previous note: H/o discovered a lump on the lower inner portion of her right breast. ? She was seen at [facility] and underwent a right sided breast mass?core biopsy on 02/16/2016?by interventional radiology. The tissue specimen demonstrated invasive ductal carcinoma, Yohan grade 2. ER positive (90%, very weak) and WA negative (0%). HER-2 was quantified at 3+. ? She underwent a right sided lumpectomy and right axillary sentinel lymph node dissection on 02/26/2016. ? Final pathology demonstrated that within the lumpectomy specimen there was a 2.5 cm single focus of invasive carcinoma. DCIS was present comprising about 10% of the total tumor volume. The grade of the invasive cancer was 3. Margins were negative. The closest was 2 mm from the medial margin and 7 mm from the anterior margin. Lymphovascular invasion was focally present. 4 lymph nodes were retrieved. All lymph nodes were negative. ? Previous therapy: 1) AC followed by paclitaxel/Herceptin. 2) Adjuvant radiation completed 11/10/2016 3) Nerlyx-stopped d/t diarrhea. ? Last dose of nerlyx . I'm never taking that again. ? No complaints. Appetite:good Energy level:It's getting there almost back to normal. Denies fevers or recent illness. Resp:denies cough or sob Cardiac:denies chest pain/palpitations/leg swelling GI:denies abd pain, n/v, moving bowels regularly :denies dysuria/hematuria Extrem:denies pain to back/bones/joints Endo:denies hot flashes Neuro:+neuropathy my fingers/toes are the same. Skin:denies rashes/lesions Heme:denies bleeding The ROS is otherwise negative. Past medical history, appointments, medications, allergies reviewed. No changes. EXAM: BP 136/84 Pulse 72 Temp 36.7 ?C (98.1 ?F) Wt 92.1 kg (203 lb) BMI 38.36 kg/m? APPEARANCE Well appearing, alert, in no acute distress, well-hydrated, well nourished. HEART RRR with normal S1 and S2, no murmurs LUNG clear to auscultation BREAST FEMALE no mass/nodule b/l LYMPH NODES No cervical lymphadenopathy, No supraclavicular lymphadenopathy and No axillary lymphadenopathy. ABDOMEN bowel sounds normoactive, no bruits, soft, non-tender, non-distended, without organomegaly or palpable masses EXTREMITIES No edema NEURO Awake, alert and oriented x 3, Normal gait and No involuntary motions. SKIN Skin color, texture, turgor normal, no suspicious rashes or lesions RADIOLOGY: Mammogram 11/22/17: IMPRESSION: BENIGN FINDING There is no mammographic evidence of malignancy. A 1 year screening mammogram is recommended. ASSESSMENT/PLAN: 1. Malignant neoplasm of lower-inner quadrant of right breast of female, estrogen receptor positive (HCC) - ICD9: 174.3, V86.0, ICD10: C50.311, Z17.0 pT2 pN0(sln) MX ER positive (9%, very weak) WA negative HER overexpressed stage IIA invasive ductal carcinoma the right breast. 2. Chemotherapy-induced cardiomyopathy (HCC) - ICD9: 425.9, E933.1, ICD10: I42.7, T45.1X5A - No concerning findings on exam. - Bone density due 2018. - Follow up with Cardiology ([place]) tomorrow as scheduled. - Mammogram as scheduled in 2017. - Continue arimidex and neurontin-tolerate well. - Follow up in 6 months. - Pt. aware to call office with any questions/concerns. The patient indicates understanding of these issues and agrees with the plan. Caity Cote APRN.CNP CNOVSP Observed: 11/28/2017 Status: COMPLETED Source: [place] 1:[address] [facility] REPOSITORY Visit (SP) Office ([place]) CHRISTIANSENRENATE Borja ([id number]) 1955 F TAHIRA Date Time Provider Department 11/28/17 1:30 PM CAITY COTE ([place]) [place] During your visit today, we recorded the following information about you: Temperature Pulse Blood pressure Weight 98.1 degrees 72/minute 136/84 92.1 kg Chrissie Graham LPN, LPN 11/28/2017 1:39 PM Signed Est pt., 3 month f/u DARRELL Smith APRN.CNP 11/29/2017 1:35 PM Signed Chief Complaint Patient presents with: Established Patient HPI: Renate Christiansen is a 62 year old female who presents here today for follow up breast cancer. Per Dr. Rivers's previous note: H/o discovered a lump on the lower inner portion of her right breast. ? She was seen at [facility] and underwent a right sided breast mass?core biopsy on 02/16/2016?by interventional radiology. The tissue specimen demonstrated invasive ductal carcinoma, Yohan grade 2. ER positive (90%, very weak) and WA negative (0%). HER-2 was quantified at 3+. ? She underwent a right sided lumpectomy and right axillary sentinel lymph node dissection on 02/26/2016. ? Final pathology demonstrated that within the lumpectomy specimen there was a 2.5 cm single focus of invasive carcinoma. DCIS was present comprising about 10% of the total tumor volume. The grade of the invasive cancer was 3. Margins were negative. The closest was 2 mm from the medial margin and 7 mm from the anterior margin. Lymphovascular invasion was focally present. 4 lymph nodes were retrieved. All lymph nodes were negative. ? Previous therapy: 1) AC followed by paclitaxel/Herceptin. 2) Adjuvant radiation completed 11/10/2016 3) Nerlyx-stopped d/t diarrhea. ? Last dose of nerlyx . I'm never taking that again. ? No complaints. Appetite:good Energy level:It's getting there almost back to normal. Denies fevers or recent illness. Resp:denies cough or sob Cardiac:denies chest pain/palpitations/leg swelling GI:denies abd pain, n/v, moving bowels regularly :denies dysuria/hematuria Extrem:denies pain to back/bones/joints Endo:denies hot flashes Neuro:+neuropathy my fingers/toes are the same. Skin:denies rashes/lesions Heme:denies bleeding The ROS is otherwise negative. Past medical history, appointments, medications, allergies reviewed. No changes. EXAM: BP 136/84 Pulse 72 Temp 36.7 ?C (98.1 ?F) Wt 92.1 kg (203 lb) BMI 38.36 kg/m? APPEARANCE Well appearing, alert, in no acute distress, well- hydrated, well nourished. HEART RRR with normal S1 and S2, no murmurs LUNG clear to auscultation BREAST FEMALE no mass/nodule b/l LYMPH NODES No cervical lymphadenopathy, No supraclavicular lymphadenopathy and No axillary lymphadenopathy. ABDOMEN bowel sounds normoactive, no bruits, soft, non-tender, non-distended, without organomegaly or palpable masses EXTREMITIES No edema NEURO Awake, alert and oriented x 3, Normal gait and No involuntary motions. SKIN Skin color, texture, turgor normal, no suspicious rashes or lesions RADIOLOGY: Mammogram 11/22/17: IMPRESSION: BENIGN FINDING There is no mammographic evidence of malignancy. A 1 year screening mammogram is recommended. ASSESSMENT/PLAN: 1. Malignant neoplasm of lower-inner quadrant of right breast of female, estrogen receptor positive (HCC) - ICD9: 174.3, V86.0, ICD10: C50.311, Z17.0 pT2 pN0(sln) MX ER positive (9%, very weak) WA negative HER overexpressed stage IIA invasive ductal carcinoma the right breast. 2. Chemotherapy-induced cardiomyopathy (HCC) - ICD9: 425.9, E933.1, ICD10: I42.7, T45.1X5A - No concerning findings on exam. - Bone density due 2018. - Follow up with Cardiology ([place]) tomorrow as scheduled. - Mammogram as scheduled in 2017. - Continue arimidex and neurontin-tolerate well. - Follow up in 6 months. - Pt. aware to call office with any questions/concerns. The patient indicates understanding of these issues and agrees with the plan. Caity Cote APRN.TUMBLING AND ROLLING SUPERVISOR Referring Provider: CAITY COTE ([facility]) [[id number]] Allergies As of Date: 11/28/2017 Noted Allergy Reaction NERATINIB 07/27/2017 4 - Hives Comments: Hives/itching/ nausea vomiting and diarrhea AMOXIL (AMOXICILLIN) 02/20/2016 2 - Rash ASPIRIN 02/20/2016 14 - Other: See Comments Comments: Internal bleeding CEPHALOSPORINS 02/20/2016 16 - Unknown CIPROCINONIDE 02/20/2016 16 - Unknown CODEINE 02/20/2016 16 - Unknown DEMEROL (MEPERIDINE (PF)) 02/20/2016 16 - Unknown ERYTHROMYCIN 02/20/2016 16 - Unknown LATEX 03/18/2016 2 - Rash NORCO (HYDROCODONE-ACETAMINOPHEN) 03/04/2016 4 - Hives NUBAIN (NALBUPHINE HCL) 02/20/2016 16 - Unknown PERCOCET (OXYCODONE-ACETAMINOPHEN)03/29/2016 2 - Rash 9 - Itching PREDNISONE 02/20/2016 16 - Unknown Comments: per pt, this was given when had appendicitis and received multiple meds and she developed a rash and they had given her prednisone but at some point it was thought that it wasn't working and maybe it was part of the problem. RYE 02/20/2016 14 - Other: See Comments Comments: Migraine headache SULFA (SULFONAMIDE ANTIBIOTICS) 02/20/2016 14 - Other: See Comments Comments: Fever/Gi upset/listless Date Reviewed: 11/28/2017 Reviewed by: Caity (Business Services Manager) Rocael - Fully Assessed Reason for Visit: Established Patient [175] Primary Visit Diagnosis:Malignant neoplasm of lower-inner quadrant of right breast of female, estrogen receptor positive (HCC) [C50.311, Z17.0] Other Visit Diagnosis: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, T45.1X5A] Follow-up and Disposition History Recorded Prescriptions as of 11/28/2017 Sig: COMPOUNDED PRESCRIPTION Cumin and tumeric 500mg daily PROMETHAZINE 25 MG TABLET Take 1 tablet by mouth every * DIPHENOXYLATE-ATROPINE 2.5 MG* Take 1-2 tablets by mouth sohail* ANASTROZOLE 1 MG TABLET TAKE 1 TABLET BY MOUTH ONCE D* GABAPENTIN 300 MG CAPSULE Take 1 capsule by mouth once * TRAMADOL 50 MG TABLET Take 1 tablet by mouth every * CALCIUM+D ORAL Take 1 tablet by mouth once d* LOSARTAN 50 MG TABLET Take 50 mg by mouth once vivek* LIDOCAINE-PRILOCAINE 2.5 %-2.* Apply to port site 20 min.roxanne* MULTIVITAMIN TABLET Take 1 tablet by mouth once d* DIPHENHYDRAMINE 25 MG TABLET Take 25 mg by mouth twice juan luis* Problem List As Of Date 11/28/2017 Noted Resolved Malignant neoplasm of lower-inner quadrant of r*INVALID FOR* 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 REPOSITORY HNO ID: [id number] Author: Mammography Coordinator Service: (none) Author Type: Physician Type: Letter Filed: 11/23/2017 11:32 PM Note Text: November 22, 2017 PID: [id number] Renate Major [address] [place] [address] Dear Pablo Christiansen, We are pleased to inform you that the results of your recent breast imaging exam on 11/22/2017 are normal and we recommend that you return to your annual screening Mammography schedule. Early detection of cancer is very important. We also understand recommendations regarding breast cancer screening are controversial. Please discuss with your primary care provider which strategy is best for you and whether a mammogram is right for you. Your imaging studies and report will be kept on file at [facility] as part of your permanent medical record and are available for your continuing care. Thank you for allowing us to help in meeting your health care needs. Sincerely, Dr. Lucas Interpreting Radiologist [facility] (Return to Annual Mammogram schedule) [facility] Observed: 11/22/2017 Status: F Source: [place] 2:[address] [facility] REPOSITORY * * *Final Report* * * DATE OF EXAM: Nov 22 2017 2:40PM [facility] 0621 - [facility] / PROCEDURE REASON: 6 MONTH LEFT BREAST / ANBORMAL MAMMOGRAM * * * * Physician Interpretation * * * * RESULT: #[id number] - [facility] UNILATERAL LEFT DIGITAL DIAGNOSTIC MAMMOGRAM WITH CAD: 11/22/2017 HISTORY: 6 Month Left Breast / Anbnormal Mammogram /priors available for comparison. RESULT: TECHNIQUE: The study was acquired using full field digital technology and interpreted from soft copy. Current study was also evaluated with a Computer Aided Detection (CAD). Comparison is made to exams dated: 05/24/2017 mammogram - [facility] and 05/16/2017 mammogram - [facility]. The tissue of the left breast is heterogeneously dense. This may lower the sensitivity of mammography. There is a benign asymmetry in the left breast at 12 o'clock middle depth. This is less prominent. No other significant masses or calcifications are seen in the breast. IMPRESSION: BENIGN FINDING There is no mammographic evidence of malignancy. A 1 year screening mammogram is recommended. Bruno reilly/alicia:11/22/2017 15:40:55 Head Silverman: Deanna ROSA(Nayan)(Joan), [facility] letter sent: Return to Annual Mammogram BI-RADS: 2 Benign finding Cotton Roll Packer: Alicia Transcribe Date/Time: Nov 22 2017 2:24P Dictated by: BRUNO LUCAS DO This examination was interpreted and the report reviewed and electronically signed by: BRUNO LUCAS DO on Nov 22 2017 3:40PM EST [id number] PROGRESS Observed: 11/22/2017 Status: COMPLETED Source: [place] 2:24 PM [facility] REPOSITORY HNO ID: [id number] Author: Annamaria Rosa Service: (none) Author Type: (none) Type: Progress Notes Filed: 11/22/2017 3:00 PM Note Text: Radiology Service Progress Note PATIENT NAME: Renate Christiansen DATE OF SERVICE: November 22, 2017 TIME: 2:24 PM PATIENT IDENTITY VERIFICATION COMPLETED USING TWO (2) METHODS: Patient confirmed name verbally and Date of . PATIENT GENDER DATA: Female. status: : No status: NO. PATIENT RELEVANT IMPLANT DATA REVIEWED: Not Applicable RADIOLOGY DEPARTMENT: Women's Health Left diag mammogram PERIPHERAL IV DATA: Not applicable SIGNED BY: Annamaria Rosa November 22, 2017 2:24 PM PROGRESS Observed: 08/31/2017 Status: COMPLETED Source: [place] 7:41 PM [facility] RE[facility] HNO ID: [id number] Author: Leeanna Dorado Service: (none) Author Type: Physician Type: Progress Notes Filed: 09/01/2017 3:59 PM Note Text: Renate is s/p removal of portacth on 08/26/17. Denies any problems. Wound is healing well, no evidence of infection Follow up as per needed. CNOV Observed: 08/31/2017 Status: COMPLETED Source: [place] 2:00 PM [facility] REPOSITORY Office Visit (GENSWS) RENATE CHRISTIANSEN ([id number]) 1955 F [place] Date Time Provider Department 08/31/17 2:00 PM LEEANNA DORADO During your visit today, we recorded the following information about you: Leeanna Dorado MD 09/01/2017 3:59 PM Signed Renate is s/p removal of portacth on 08/26/17. Denies any problems. Wound is healing well, no evidence of infection Follow up as per needed. Referring Provider: RIP RIVERS [[id number]] Allergies As of Date: 08/31/2017 Noted Allergy Reaction NERATINIB 07/27/2017 4 - Hives Comments: Hives/itching/ nausea vomiting and diarrhea AMOXIL (AMOXICILLIN) 02/20/2016 2 - Rash ASPIRIN 02/20/2016 14 - Other: See Comments Comments: Internal bleeding CEPHALOSPORINS 02/20/2016 16 - Unknown CIPROCINONIDE 02/20/2016 16 - Unknown CODEINE 02/20/2016 16 - Unknown DEMEROL (MEPERIDINE (PF)) 02/20/2016 16 - Unknown ERYTHROMYCIN 02/20/2016 16 - Unknown LATEX 03/18/2016 2 - Rash NORCO (HYDROCODONE-ACETAMINOPHEN) 03/04/2016 4 - Hives NUBAIN (NALBUPHINE HCL) 02/20/2016 16 - Unknown PERCOCET (OXYCODONE-ACETAMINOPHEN)03/29/2016 2 - Rash 9 - Itching PREDNISONE 02/20/2016 16 - Unknown Comments: per pt, this was given when had appendicitis and received multiple meds and she developed a rash and they had given her prednisone but at some point it was thought that it wasn't working and maybe it was part of the problem. RYE 02/20/2016 14 - Other: See Comments Comments: Migraine headache SULFA (SULFONAMIDE ANTIBIOTICS) 02/20/2016 14 - Other: See Comments Comments: Fever/Gi upset/listless Date Reviewed: 08/31/2017 Reviewed by: Luis Salter BUSINESS QUALITY ASSURANCE ANALYST - Fully Assessed Reason for Visit: Post Op [174] Cmt: post op port removal Primary Visit Diagnosis:Postop check [Z09] Prescriptions as of 08/31/2017 Sig: PROMETHAZINE 25 MG TABLET Take 1 tablet by mouth every * DIPHENOXYLATE-ATROPINE 2.5 MG* Take 1-2 tablets by mouth sohail* ANASTROZOLE 1 MG TABLET TAKE 1 TABLET BY MOUTH ONCE D* GABAPENTIN 300 MG CAPSULE Take 1 capsule by mouth once * TRAMADOL 50 MG TABLET Take 1 tablet by mouth every * CALCIUM+D ORAL Take 1 tablet by mouth once d* LOSARTAN 50 MG TABLET Take 50 mg by mouth once vivek* LIDOCAINE-PRILOCAINE 2.5 %-2.* Apply to port site 20 min.roxanne* MULTIVITAMIN TABLET Take 1 tablet by mouth once d* DIPHENHYDRAMINE 25 MG TABLET Take 25 mg by mouth twice juan luis* Problem List As Of Date 08/31/2017 Noted Resolved Malignant neoplasm of lower-inner quadrant of r*INVALID FOR* Idiopathic scoliosis of lumbar spine [M41.26] INVALID FOR* Lymphedema [I89.0] INVALID FOR* 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] INVALID FOR* Malignant neoplasm of lower-inner quadrant of r*INVALID FOR* 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.*INVALID FOR* Chemotherapy induced diarrhea [K52.1, T45.1X5A] INVALID FOR* Encounter Status:Closed by MD LEEANNA DORADO on 09/01/17 ECHOCARDIOGRAM COMPLETE Observed: 08/29/2017 Status: F Source: [place] 6:18 PM [facility] REPOSITORY [facility] Cardiovascular Services [address] [place] [address] Echo Complete 08/29/17 1408 MR#: [id number] Acct: [id number] Name: RENATE CHRISTIANSEN Rep #: [id number] : 1955 61 From: Mayco Galeano MD Attending Dr: Mayco Galeano MD Status: REG CLI Ordering Dr: Mayco Galeano MD Date: 08/29/17 Location: [facility] Sex: F C Admitted: Reason For Study: HTN Procedure This was a 2D Doppler, Color Flow transthoracic echocardiogram. Exam performed in department. Left Ventricle Normal LV size. Left ventricular systolic function is lower limits of normal. The estimated ejection fraction is 52 %. Transmitral diastolic flow velocities suggest mild (stage 1) diastolic dysfunction (reversed pattern). No regional wall motion abnormalities noted. Right Ventricle Normal RV size. Normal systolic function. Atria Normal left atrium. Normal right atrium. Mitral Valve Normal mitral valve. Tricuspid Valve Normal tricuspid valve. Mild tricuspid valve insufficiency. Pulmonary artery systolic pressure is 27 mmHg. Aortic Valve Normal aortic valve. Trisinus/trileaflet aortic valve. Pulmonic Valve Normal pulmonic valve. Great Vessels Normal aortic root. The pulmonary artery is normal size. Normal inferior vena cava. Pericardium/Pleural No pericardial effusion. MMode/2D Measurements AND Calculations LVIDd: 3.9 cm IVSd: 0.98 cm Ao root diam: 3.1 cm LVIDs: 2.6 cm LVPWd: 1.1 cm LA dimension: 3.8 cm RVDd: 3.2 cm FS: 32.3 % LAV(MOD-bp): 48.0 ml LA A4 area: 19.2 cm2 RA A4 area: 12.3 cm2 LAV(MOD-bp) Indexed: 26.0 ml/m2 LAV(MOD-sp2): 35.2 ml LAV(MOD-sp4): 56.1 ml Doppler Measurements AND Calculations MV E max johnathan: 71.3 cm/sec Lat Peak E' Johnathan: 8.7 cm/sec Med Peak E' Johnathan: 4.9 cm/sec MV A max johnathan: 103.6 cm/sec E/E' lat: 8.2 E/E' med: 14.5 MV E/A: 0.69 Ao V2 max: 131.9 cm/sec LV V1 max: 89.1 cm/sec PA V2 max: 99.3 cm/sec Ao max P.0 mmHg LV V1 max P.2 mmHg TR max johnathan: 235.7 cm/sec TR max P.7 mmHg Interpretation Summary Normal LV size. Left ventricular systolic function is lower limits of normal. The estimated ejection fraction is 52 %. Transmitral diastolic flow velocities suggest mild (stage 1) diastolic dysfunction (reversed pattern). Compared to prior study, there is no significant change. Ordering Physician: Mayco Galeano Referring Physician: Armando Mejia Performed By: Izzy Jensen RDCS 08/29/171816 Date Mayco Galeano MD CC: Mayco Galeano MD; ARMANDO MEJIA Date Dictated: 08/29/17 1408 Date Transcribed: 08/29/171816 Cotton Roll Packer: Signed PROCEDURE Observed: 08/26/2017 Status: COMPLETED Source: [place] 8:[address] [facility] REPOSITORY O ID: [id number] Author: Leeanna Dorado Service: (none) Author Type: Physician Type: Procedures Filed: 08/26/2017 8:02 PM Note Text: After informed consent was given the patient was placed in the supine position. Appropriate time out protocol was followed. At the site of the port, the skin was cleansed with sterile skin preparation and sterile surgical drapes were placed. The skin and subcutaneous tissues were infiltrated with 1% xylocaine with epinephrine. A skin incision was made at the previous scar site with a 15 blade scalpel. Blunt dissection was then continued down to the port site. Blunt dissection was continued to separate the port and catheter for the surrounding tissues. Once completely freed, the port and catheter was then completely removed from the wound. Pressure was applied to the subclavian vein site for hemostasis. The skin was then reapproximated with subdermal running 3-0 vicryl suture. Steristrips were placed. A sterile dressing was then applied. Patient tolerated the procedure well. PROGRESS Observed: 08/26/2017 Status: COMPLETED Source: [place] 6:29 PM [facility] HNO ID: [id number] Author: Leeanna Dorado Service: (none) Author Type: Physician Type: Progress Notes Filed: 08/26/2017 8:02 PM Note Text: Renate presents for removal of left sided portacath. She tolerated procedure well. To follow up with me next week for wound check. PROGRESS Observed: 08/26/2017 Status: COMPLETED Source: [place] 3:[address] [facility] REPOSITORY HNO ID: [id number] Author: Maureen Patel RN Service: (none) Author Type: (none) Type: Progress Notes Filed: 08/26/2017 8:02 PM Note Text: UNIVERSAL PROTOCOL / SAFETY CHECKLIST Procedure to be performed: removal of port a cath Sign in Communication: Completed Time Out: Team Confirms the Correct Patient, Correct Procedure, Correct Site and Site Marking, Correct Position (if applicable), Prep and Dry Time (if applicable). Time: 1510 Affirmation of Time Out: YES Sign Out Discussion: Completed Maureen Patel RN CNOV Observed: 08/26/2017 Status: COMPLETED Source: [place] 1:[address] [facility] REPOSITORY Office Visit (GENSWS) KULDIPRENATE ([id number]) 1955 F [place] Date Time Provider Department 08/26/17 1:20 PM LEEANNA DORADO During your visit today, we recorded the following information about you: Maureen Patel RN 08/26/2017 8:02 PM Signed UNIVERSAL PROTOCOL / SAFETY CHECKLIST Procedure to be performed: removal of port a cath Sign in Communication: Completed Time Out: Team Confirms the Correct Patient, Correct Procedure, Correct Site and Site Marking, Correct Position (if applicable), Prep and Dry Time (if applicable). Time: 1510 Affirmation of Time Out: YES Sign Out Discussion: Completed Maureen Patel RN 08/26/2017 3:24 PM Signed The following instructions are important for you related to your office visit today with the [facility]. Instructions After Port a Cath Removal You can remove the dressing in two days. If the dressing becomes soaked or had significant drainage, the dressing should be changed. If there is minor bleeding from this skin edge, you should hold pressure on the incision until the bleeding stops. If there is continued bleeding, you should contact our office immediately. You do not need to leave a dressing on the wound after two days. If the wound shows signs of redness, inflammation, or purulent drainage, you should contact our office immediately. You should keep the wound dry for the first two days. After that time, you may wash the wound with gentle soap and water. The wound should not be immersed in a pool, bathtub, or even hot tub. We prefer to check the incision and remove the stitches in our office when ready. Please make an appointment to return to our office in 6 days. Please do not remove the stitches yourself without approval from our office. If you note any additional difficulties, questions, or concerns, you should contact our office immediately @ [phone] and ask to be transferred to the General Surgery department. Leeanna Dorado MD 08/26/2017 8:02 PM Signed Renate medina for removal of left sided portacath. She tolerated procedure well. To follow up with me next week for wound check. Leeanna Dorado MD 08/26/2017 8:02 PM Signed After informed consent was given the patient was placed in the supine position. Appropriate time out protocol was followed. At the site of the port, the skin was cleansed with sterile skin preparation and sterile surgical drapes were placed. The skin and subcutaneous tissues were infiltrated with 1% xylocaine with epinephrine. A skin incision was made at the previous scar site with a 15 blade scalpel. Blunt dissection was then continued down to the port site. Blunt dissection was continued to separate the port and catheter for the surrounding tissues. Once completely freed, the port and catheter was then completely removed from the wound. Pressure was applied to the subclavian vein site for hemostasis. The skin was then reapproximated with subdermal running 3-0 vicryl suture. Steristrips were placed. A sterile dressing was then applied. Patient tolerated the procedure well. Referring Provider: RIP RIVERS [[id number]] Allergies As of Date: 08/26/2017 Noted Allergy Reaction NERATINIB 07/27/2017 4 - Hives Comments: Hives/itching/ nausea vomiting and diarrhea AMOXIL (AMOXICILLIN) 02/20/2016 2 - Rash ASPIRIN 02/20/2016 14 - Other: See Comments Comments: Internal bleeding CEPHALOSPORINS 02/20/2016 16 - Unknown CIPROCINONIDE 02/20/2016 16 - Unknown CODEINE 02/20/2016 16 - Unknown DEMEROL (MEPERIDINE (PF)) 02/20/2016 16 - Unknown ERYTHROMYCIN 02/20/2016 16 - Unknown LATEX 03/18/2016 2 - Rash NORCO (HYDROCODONE-ACETAMINOPHEN) 03/04/2016 4 - Hives NUBAIN (NALBUPHINE HCL) 02/20/2016 16 - Unknown PERCOCET (OXYCODONE-ACETAMINOPHEN)03/29/2016 2 - Rash 9 - Itching PREDNISONE 02/20/2016 16 - Unknown Comments: per pt, this was given when had appendicitis and received multiple meds and she developed a rash and they had given her prednisone but at some point it was thought that it wasn't working and maybe it was part of the problem. RYE 02/20/2016 14 - Other: See Comments Comments: Migraine headache SULFA (SULFONAMIDE ANTIBIOTICS) 02/20/2016 14 - Other: See Comments Comments: Fever/Gi upset/listless Date Reviewed: 08/26/2017 Reviewed by: Leeanna Dorado - Fully Assessed Reason for Visit: Port Removal [1333] Primary Visit Diagnosis:Portacath in place [Z95.828] Prescriptions as of 08/26/2017 Sig: PROMETHAZINE 25 MG TABLET Take 1 tablet by mouth every * DIPHENOXYLATE-ATROPINE 2.5 MG* Take 1-2 tablets by mouth sohail* ANASTROZOLE 1 MG TABLET TAKE 1 TABLET BY MOUTH ONCE D* GABAPENTIN 300 MG CAPSULE Take 1 capsule by mouth once * TRAMADOL 50 MG TABLET Take 1 tablet by mouth every * CALCIUM+D ORAL Take 1 tablet by mouth once d* LOSARTAN 50 MG TABLET Take 50 mg by mouth once vivek* LIDOCAINE-PRILOCAINE 2.5 %-2.* Apply to port site 20 min.roxanne* MULTIVITAMIN TABLET Take 1 tablet by mouth once d* DIPHENHYDRAMINE 25 MG TABLET Take 25 mg by mouth twice juan luis* Problem List As Of Date 08/26/2017 Noted Resolved Malignant neoplasm of lower-inner quadrant of r*INVALID FOR* Idiopathic scoliosis of lumbar spine [M41.26] INVALID FOR* Lymphedema [I89.0] INVALID FOR* 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 Instructions After Port a Cath Removal You can remove the dressing in two days. If the dressing becomes soaked or had significant drainage, the dressing should be changed. If there is minor bleeding from this skin edge, you should hold pressure on the incision until the bleeding stops. If there is continued bleeding, you should contact our office immediately. You do not need to leave a dressing on the wound after two days. If the wound shows signs of redness, inflammation, or purulent drainage, you should contact our office immediately. You should keep the wound dry for the first two days. After that time, you may wash the wound with gentle soap and water. The wound should not be immersed in a pool, bathtub, or even hot tub. We prefer to check the incision and remove the stitches in our office when ready. Please make an appointment to return to our office in 6 days. Please do not remove the stitches yourself without approval from our office. If you note any additional difficulties, questions, or concerns, you should contact our office immediately @ [phone] and ask to be transferred to the General Surgery department. Encounter Status:Closed by MD LEEANNA DORADO on 08/26/17 PROGRESS Observed: 08/19/2017 Status: COMPLETED Source: [place] 1:05 PM [facility] [place] REPOSITORY HNO ID: [id number] Author: Caity ([facility]) Rocael Service: (none) Author Type: Nurse Practitioner Type: Progress Notes Filed: 08/22/2017 8:25 AM Note Text: Chief Complaint Patient presents with: Established Patient HPI: Renate Christiansen is a 61 year old female who presents here today for follow up breast cancer. Per Dr. Rivers's previous note: H/o discovered a lump on the lower inner portion of her right breast. ? She was seen at [facility] and underwent a right sided breast mass core biopsy on 02/16/2016 by interventional radiology. The tissue specimen demonstrated invasive ductal carcinoma, Buckner grade 2. ER positive (90%, very weak) and WA negative (0%). HER-2 was quantified at 3+. ? She underwent a right sided lumpectomy and right axillary sentinel lymph node dissection on 02/26/2016. ? Final pathology demonstrated that within the lumpectomy specimen there was a 2.5 cm single focus of invasive carcinoma. DCIS was present comprising about 10% of the total tumor volume. The grade of the invasive cancer was 3. Margins were negative. The closest was 2 mm from the medial margin and 7 mm from the anterior margin. Lymphovascular invasion was focally present. 4 lymph nodes were retrieved. All lymph nodes were negative. ? Previous therapy: 1) AC followed by paclitaxel/Herceptin. 2) Adjuvant radiation completed 11/10/2016 3) Nerlyx-stopped d/t diarrhea. Last dose of nerlyx . I'm never taking that again. Appetite:good Energy level:fair Denies fevers or recent illness. Resp:denies cough or sob Cardiac:denies chest pain/palpitations/leg swelling GI:denies abd pain, n/v, moving bowels regularly-diarrhea subsided :denies dysuria/hematuria Extrem:denies pain although my legs seem kind of achy. Neuro:+neuropathy my toes seem to be worse-my fingers are better. Skin:denies rashes/lesions Heme:denies bleeding The ROS is otherwise negative. Past medical history, appointments, medications, allergies reviewed. No changes. EXAM: BP 147/74 Pulse 86 Temp 36.8 ?C (98.2 ?F) (Oral) Wt 88.9 kg (196 lb) BMI 37.03 kg/m2 APPEARANCE Well appearing, alert, in no acute distress, well-hydrated, well nourished. HEART RRR with normal S1 and S2, no murmurs LUNG clear to auscultation LYMPH NODES No cervical lymphadenopathy, No supraclavicular lymphadenopathy and No axillary lymphadenopathy. ABDOMEN bowel sounds normoactive, no bruits, soft, non-tender, non-distended, without organomegaly or palpable masses EXTREMITIES No edema NEURO Awake, alert and oriented x 3, Normal gait and No involuntary motions. SKIN Skin color, texture, turgor normal, no suspicious rashes or lesions LABS: Component Latest Ref Rng AND Units 05/23/2017 07/04/2017 08/19/2017 WBC, [place] 3.70 - 11.00 k/uL 5.11 5.71 4.32 RBC, [place] 3.90 - 5.20 m/uL 4.18 4.08 4.18 Hemoglobin, [place] 11.5 - 15.5 g/dL 13.2 13.0 13.4 Hematocrit, [place] 36.0 - 46.0 % 39.6 39.2 39.7 MCV, [place] 80.0 - 100.0 fL 94.7 96.1 95.0 MCH, [place] 26.0 - 34.0 pg 31.6 31.9 32.1 MCHC, [place] 30.5 - 36.0 g/dL 33.3 33.2 33.8 RDW, [place] 11.5 - 15.0 % 13.1 13.4 13.6 Platelet Cnt, [place] 150 - 400 k/uL 232 208 228 MPV, [place] 9.0 - 12.7 fL 9.0 8.9 (L) 9.0 Absol Gran Count 1.45 - 7.50 k/uL 3.48 3.62 2.64 Component Latest Ref Rng AND Units 07/27/2017 08/19/2017 Sodium, Whole Blood (iSTAT) 132 - 148 mmol/L 139 140 Potassium, Whole Blood (iSTAT) 3.5 - 5.0 mmol/L 3.6 3.9 Chloride, Whole Blood (iSTAT) 98 - 110 mmol/L 101 101 Ionized Calcium, WB (iSTAT) 1.08 - 1.30 mmol/L 1.23 1.14 TCO2, Whole Blood (iSTAT) 23 - 32 mmol/L 26 27 Glucose, Whole Blood (iSTAT) 65 - 100 mg/dL 98 108 (H) BUN, Whole Blood (iSTAT) 8 - 25 mg/dL 15 13 Creatinine, Whole Blood (iSTAT) 0.70 - 1.40 mg/dL 0.90 0.80 Anion Gap, Whole Blood (iSTAT) 0 - 15 mmol/L 12 12 eGFR- >60 >60 eGFR-All Other Races . >60 >60 LFT's: Pending ASSESSMENT/PLAN: 1. Malignant neoplasm of lower-inner quadrant of right breast of female, estrogen receptor positive (HCC) - ICD9: 174.3, V86.0, ICD10: C50.311, Z17.0 pT2 pN0(sln) MX ER positive (9%, very weak) WA negative HER overexpressed stage IIA invasive ductal carcinoma the right breast. - No concerning findings on exam. - Reviewed labs with pt. - Continue follow up with cardiology. - Cardiology ([facility]) doing ECHO on Tuesday. - Continue arimidex and neurontin. - Per Dr. Rivers pt. may have port removed-Dr. Dorado. - Follow up in 3 months. - Pt. aware to call office with any questions/concerns. The patient indicates understanding of these issues and agrees with the plan. Discussed case with Dr. Rivers who agrees with treatment plan. Caity Cote, [employer]LLING SUPERVISOR [place] ABS GR + CBC Collected: 08/19/2017 Status: F Source: [place] 1:00 PM [facility] [place] REPOSITORY TYPE CODE TESTS RESULT OUT OF REFERENCE UNITS RANGE LAB WWBC 3.70-11.00 k/uL [place] WBC 4.32 LAB WRBC 3.90-5.20 m/uL [place] RBC 4.18 LAB WHGB 11.5-15.5 g/dL [place] Hemoglobin 13.4 LAB WHCT 36.0-46.0 % [place] Hematocrit 39.7 LAB WMCV 80.0-100.0 fL [place] MCV 95.0 LAB WMCH 26.0-34.0 pg [place] MCH 32.1 LAB WMCHC 30.5-36.0 g/dL [place] MCHC 33.8 LAB WRDW 11.5-15.0 % [place] RDW 13.6 LAB WPLT 150-400 k/uL [place] Platelet Cnt 228 LAB WMPV 9.0-12.7 fL [place] MPV 9.0 Result Comment: Test performed at: [facility] [place], [address] [place] [address]. LAB ABGRAN 1.45-7.50 k/uL Absol Gran 2.64 Count YVONNE ISTAT BMP Collected: 08/19/2017 Status: F Source: [place] 1:[address] [facility] REPOSITORY TYPE CODE TESTS RESULT OUT OF REFERENCE UNITS RANGE LAB NAWB 132-148 mmol/L Sodium, Whole 140 Bld LAB K1WB 3.5-5.0 mmol/L Potassium,Who 3.9 le Bld LAB CLWB 98-110 mmol/L Chloride, 101 Whole Bld LAB ICAWB 1.08-1.30 mmol/L Ionized 1.14 Calcium, WB Result Comment: Please note: This value represents ionized calcium not total calcium. LAB CO2WB 23-32 mmol/L TCO2, Whole 27 Blood LAB GLUWB 65-100 mg/dL High Glucose, 108 Whole Bld LAB BUNWB 8-25 mg/dL BUN, Whole 13 Blood LAB BCRET 0.70-1.40 mg/dL Creatinine,Wh 0.80 ole Bld LAB AGAPWB 0-15 mmol/L Anion Gap, 12 Whole Bld LAB GFRAA eGFR- >60 Amer. LAB GFRNAA . eGFR-All >60 Other Races Result Comment: eGFR (Estimated GFR) Units of measure: mL/min/1.73 meters squared eGFR is derived from the reexpressed MDRD Study equation using the following parameters: serum creatinine, age, gender and race. The creatinine assay has been calibrated to be traceable to IDMS. An eGFR <60 mL/min/1.73m2 for >3 months is consistent with chronic kidney disease. Refer to KDOQI guidelines for clinical interpretation. In patients with unstable renal function, e.g. those with acute kidney injury, the eGFR may not accurately reflect actual GFR. HEPATIC FUNCTN PANEL Collected: 08/19/2017 Status: F Source: [place] 1:00 [facility] REPOSITORY TYPE CODE TESTS RESULT OUT OF REFERENCE UNITS RANGE LAB ALB 3.9-4.9 g/dL Albumin 4.3 LAB TBIL 0.2-1.3 mg/dL Bilirubin, Total 0.2 LAB CBIL <0.2 mg/dL Bilirubin,Conjuga <0.2 donovan LAB ALKP 32-117 U/L Alkaline Phosphatase 84 LAB AST 13-35 U/L AST 24 LAB ALT 7-38 U/L ALT 22 LAB TP 6.3-8.0 g/dL Protein, Total 6.9 Performed By: #### HFP #### [facility] [address] [place], [place] [address] CNOVSP Observed: 08/19/2017 Status: COMPLETED Source: [place] 1:[address] [facility] REPOSITORY Visit (SP) Office (HEMAWS) RENATE CHRISTIANSEN ([id number]) 1955 F [facility] Date Time Provider Department 08/19/17 1:00 PM CAITY COTE) MELVA During your visit today, we recorded the following information about you: Temperature Pulse Blood pressure Weight 98.2 degrees 86/minute 147/74 88.9 kg Caity Cote CNP 08/22/2017 8:25 AM Signed Chief Complaint Patient presents with: Established Patient HPI: Renate Christiansen is a 61 year old female who presents here today for follow up breast cancer. Per Dr. Rivers's previous note: H/o discovered a lump on the lower inner portion of her right breast. ? She was seen at [facility] and underwent a right sided breast mass core biopsy on 02/16/2016 by interventional radiology. The tissue specimen demonstrated invasive ductal carcinoma, Yohan grade 2. ER positive (90%, very weak) and WA negative (0%). HER-2 was quantified at 3+. ? She underwent a right sided lumpectomy and right axillary sentinel lymph node dissection on 02/26/2016. ? Final pathology demonstrated that within the lumpectomy specimen there was a 2.5 cm single focus of invasive carcinoma. DCIS was present comprising about 10% of the total tumor volume. The grade of the invasive cancer was 3. Margins were negative. The closest was 2 mm from the medial margin and 7 mm from the anterior margin. Lymphovascular invasion was focally present. 4 lymph nodes were retrieved. All lymph nodes were negative. ? Previous therapy: 1) AC followed by paclitaxel/Herceptin. 2) Adjuvant radiation completed 11/10/2016 3) Nerlyx-stopped d/t diarrhea. Last dose of nerlyx . ANDquot;I'm never taking that again.ANDquot; Appetite:good Energy level:fair Denies fevers or recent illness. Resp:denies cough or sob Cardiac:denies chest pain/palpitations/leg swelling GI:denies abd pain, n/v, moving bowels regularly-diarrhea subsided :denies dysuria/hematuria Extrem:denies pain although ANDquot;my legs seem kind of achy.ANDquot; Neuro:+neuropathy ANDquot;my toes seem to be worse-my fingers are better.ANDquot; Skin:denies rashes/lesions Heme:denies bleeding The ROS is otherwise negative. Past medical history, appointments, medications, allergies reviewed. No changes. EXAM: BP 147/74 Pulse 86 Temp 36.8 ?C (98.2 ?F) (Oral) Wt 88.9 kg (196 lb) BMI 37.03 kg/m2 APPEARANCE Well appearing, alert, in no acute distress, well- hydrated, well nourished. HEART RRR with normal S1 and S2, no murmurs LUNG clear to auscultation LYMPH NODES No cervical lymphadenopathy, No supraclavicular lymphadenopathy and No axillary lymphadenopathy. ABDOMEN bowel sounds normoactive, no bruits, soft, non-tender, non-distended, without organomegaly or palpable masses EXTREMITIES No edema NEURO Awake, alert and oriented x 3, Normal gait and No involuntary motions. SKIN Skin color, texture, turgor normal, no suspicious rashes or lesions LABS: Component Latest Ref Rng ANDamp; Units 05/23/2017 07/04/2017 08/19/2017 WBC, [place] 3.70 - 11.00 k/uL 5.11 5.71 4.32 RBC, [place] 3.90 - 5.20 m/uL 4.18 4.08 4.18 Hemoglobin, [place]ne 11.5 - 15.5 g/dL 13.2 13.0 13.4 Hematocrit, [place]ne 36.0 - 46.0 % 39.6 39.2 39.7 MCV, [place] 80.0 - 100.0 fL 94.7 96.1 95.0 MCH, [place] 26.0 - 34.0 pg 31.6 31.9 32.1 MCHC, [place] 30.5 - 36.0 g/dL 33.3 33.2 33.8 RDW, [place] 11.5 - 15.0 % 13.1 13.4 13.6 Platelet Cnt, Yvonne 150 - 400 k/uL 232 208 228 MPV, [place] 9.0 - 12.7 fL 9.0 8.9 (L) 9.0 Absol Gran Count 1.45 - 7.50 k/uL 3.48 3.62 2.64 Component Latest Ref Rng ANDamp; Units 07/27/2017 08/19/2017 Sodium, Whole Blood (iSTAT) 132 - 148 mmol/L 139 140 Potassium, Whole Blood (iSTAT) 3.5 - 5.0 mmol/L 3.6 3.9 Chloride, Whole Blood (iSTAT) 98 - 110 mmol/L 101 101 Ionized Calcium, WB (iSTAT) 1.08 - 1.30 mmol/L 1.23 1.14 TCO2, Whole Blood (iSTAT) 23 - 32 mmol/L 26 27 Glucose, Whole Blood (iSTAT) 65 - 100 mg/dL 98 108 (H) BUN, Whole Blood (iSTAT) 8 - 25 mg/dL 15 13 Creatinine, Whole Blood (iSTAT) 0.70 - 1.40 mg/dL 0.90 0.80 Anion Gap, Whole Blood (iSTAT) 0 - 15 mmol/L 12 12 eGFR- ANDgt;60 ANDgt;60 eGFR-All Other Races . ANDgt;60 ANDgt;60 LFT's: Pending ASSESSMENT/PLAN: 1. Malignant neoplasm of lower-inner quadrant of right breast of female, estrogen receptor positive (HCC) - ICD9: 174.3, V86.0, ICD10: C50.311, Z17.0 pT2 pN0(sln) MX ER positive (9%, very weak) WA negative HER overexpressed stage IIA invasive ductal carcinoma the right breast. - No concerning findings on exam. - Reviewed labs with pt. - Continue follow up with cardiology. - Cardiology ([facility]) doing ECHO on Tuesday. - Continue arimidex and neurontin. - Per Dr. Rivers pt. may have port removed-Dr. Dorado. - Follow up in 3 months. - Pt. aware to call office with any questions/concerns. The patient indicates understanding of these issues and agrees with the plan. Discussed case with Dr. Rivers who agrees with treatment plan. Caity Cote, [employer]LLING SUPERVISOR Referring Provider: RIP RIVERS [[id number]] Allergies As of Date: 08/19/2017 Noted Allergy Reaction NERATINIB 07/27/2017 4 - Hives Comments: Hives/itching/ nausea vomiting and diarrhea AMOXIL (AMOXICILLIN) 02/20/2016 2 - Rash ASPIRIN 02/20/2016 14 - Other: See Comments Comments: Internal bleeding CEPHALOSPORINS 02/20/2016 16 - Unknown CIPROCINONIDE 02/20/2016 16 - Unknown CODEINE 02/20/2016 16 - Unknown DEMEROL (MEPERIDINE (PF)) 02/20/2016 16 - Unknown ERYTHROMYCIN 02/20/2016 16 - Unknown LATEX 03/18/2016 2 - Rash NORCO (HYDROCODONE-ACETAMINOPHEN) 03/04/2016 4 - Hives NUBAIN (NALBUPHINE HCL) 02/20/2016 16 - Unknown PERCOCET (OXYCODONE-ACETAMINOPHEN)03/29/2016 2 - Rash 9 - Itching PREDNISONE 02/20/2016 16 - Unknown Comments: per pt, this was given when had appendicitis and received multiple meds and she developed a rash and they had given her prednisone but at some point it was thought that it wasn't working and maybe it was part of the problem. RYE 02/20/2016 14 - Other: See Comments Comments: Migraine headache SULFA (SULFONAMIDE ANTIBIOTICS) 02/20/2016 14 - Other: See Comments Comments: Fever/Gi upset/listless Date Reviewed: 08/19/2017 Reviewed by: Caity ([facility]) Rocael - Fully Assessed Reason for Visit: Established Patient [175] Primary Visit Diagnosis:Malignant neoplasm of lower-inner quadrant of right breast of female, estrogen receptor positive (HCC) [C50.311, Z17.0] Follow-up and Disposition History Recorded Prescriptions as of 08/19/2017 Sig: PROMETHAZINE 25 MG TABLET Take 1 tablet by mouth every * DIPHENOXYLATE-ATROPINE 2.5 MG* Take 1-2 tablets by mouth sohail* ANASTROZOLE 1 MG TABLET TAKE 1 TABLET BY MOUTH ONCE D* GABAPENTIN 300 MG CAPSULE Take 1 capsule by mouth once * TRAMADOL 50 MG TABLET Take 1 tablet by mouth every * CALCIUM+D ORAL Take 1 tablet by mouth once d* LOSARTAN 50 MG TABLET Take 50 mg by mouth once vivek* LIDOCAINE-PRILOCAINE 2.5 %-2.* Apply to port site 20 min.roxanne* MULTIVITAMIN TABLET Take 1 tablet by mouth once d* DIPHENHYDRAMINE 25 MG TABLET Take 25 mg by mouth twice juan luis* Medication notes this encounter NERATINIB 40 MG TABLET >> Leesa Ellis MA 08/19/2017 1:01 PM >> LEESA ELLIS MA Aug 19, 2017 1:01 PM No longer taking. 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 LAB CO2WB 23-32 mmol/L TCO2, Whole Blood 26 LAB GLUWB 65-100 mg/dL Glucose, Whole Bld 98 LAB BUNWB 8-25 mg/dL BUN, Whole Blood 15 LAB BCRET 0.70-1.40 mg/dL Creatinine,Wh ole Bld 0.90 LAB AGAPWB 0-15 mmol/L Anion Gap, Whole Bld 12 LAB GFRAA eGFR- Amer. >60 LAB GFRNAA . eGFR-All Other Races >60 Result Comment: eGFR (Estimated GFR) Units of measure: mL/min/1.73 meters squared eGFR is derived from the reexpressed MDRD Study equation using the following parameters: serum creatinine, age, gender and race. The creatinine assay has been calibrated to be traceable to IDMS. An eGFR <60 mL/min/1.73m2 for >3 months is consistent with chronic kidney disease. Refer to KDOQI guidelines for clinical interpretation. In patients with unstable renal function, e.g. those with acute kidney injury, the eGFR may not accurately reflect actual GFR. EMMA Observed: 07/26/2017 Status: COMPLETED Source: [place] 12:[address] [facility] REPOSITORY Telephone (MELVA) RENATE CHRISTIANSEN ([id number]) 1955 F [facility] Date Time Provider Department 07/26/17 CARLA RODRIGUEZ (PRINCE) MELVA During your visit today, we recorded the following information about you: Sonali Lo Psr 07/26/2017 1:12 PM Signed Carla, Patient called stating that she would like a call back from you because she wants to talk to you about some symptoms she is having. She stated she has a rash on her chest and her urine seemed to be tick this morning. Please call her back when you are able at [phone] Sonali Lo Psr Carla Rodriguez, RN, RN 07/26/2017 3:22 PM Signed Patient called this office with complaints of watery diarrhea that started last , 07/21/2017. Patient stated she has been going ANDquot;all day and all night. No matter how many Imodium's I take, it won't stop.ANDquot; Patient denies blood in her stool. Patient stated she has lost 4lbs in 5 days, she has a dry mouth and denies headache, dizziness or lightheadedness. Patient stated she has decreased urine output, her urine is orange and she has vaginitis. Patient denies redness/irriation or burning when she urinates. Patient stated she is using coconut oil for vaginitis relief. Patient stated her abdomen feels full and she has been gagging with food and water. Patient has had 1 episode of emesis per day that started last week and ANDquot;water and peppermint tea are the only two things I can keep down.ANDquot; Patient woke up with a bright red, itchy rash on her chest today. Patient stated the rash was not bumpy until she scratched it. Patient is using hydrocortisone cream with itching relief. Patient did not take today's dose of Neratinib and stated she does not want to take anymore pills. Patient is able to come in for OV tomorrow after 12:30. Carla Rodriguez RN, RN 07/26/2017 4:[address] Rivers, patient should alternate 2 Imodium and 2 Lomotil every 6 hours, 3 hours apart and to take Phenergan for nausea every [address] Rivers would like patient to come in tomorrow for Hydration and Stat BMP. Patient instructed to drink water or any clear liquid she can tolerate to stay hydrated. Patient stated understanding of medication instructions and did not have any questions. Patient stated she can come in tomorrow after 12:30. PSRs- Please schedule patient after 12:30 for Hydration and Stat BMP tomorrow. Patient has port. Emma Scott PSR 07/26/2017 4:23 PM Signed Patent scheduled and notified. Chrissie Graham LPN, DARRELL 07/26/2017 4:38 PM Signed PLease sign BMP orders DARRELL Smith DO 07/26/2017 4:47 PM Signed Signed. I'll put orders in [place]. Rip Rivers DO Allergies As of Date: 07/26/2017 Noted Allergy Reaction AMOXIL (AMOXICILLIN) 02/20/2016 2 - Rash ASPIRIN 02/20/2016 14 - Other: See Comments Comments: Internal bleeding CEPHALOSPORINS 02/20/2016 16 - Unknown CIPROCINONIDE 02/20/2016 16 - Unknown CODEINE 02/20/2016 16 - Unknown DEMEROL (MEPERIDINE (PF)) 02/20/2016 16 - Unknown ERYTHROMYCIN 02/20/2016 16 - Unknown LATEX 03/18/2016 2 - Rash NORCO (HYDROCODONE-ACETAMINOPHEN) 03/04/2016 4 - Hives NUBAIN (NALBUPHINE HCL) 02/20/2016 16 - Unknown PERCOCET (OXYCODONE-ACETAMINOPHEN)03/29/2016 2 - Rash 9 - Itching PREDNISONE 02/20/2016 16 - Unknown Comments: per pt, this was given when had appendicitis and received multiple meds and she developed a rash and they had given her prednisone but at some point it was thought that it wasn't working and maybe it was part of the problem. RYE 02/20/2016 14 - Other: See Comments Comments: Migraine headache SULFA (SULFONAMIDE ANTIBIOTICS) 02/20/2016 14 - Other: See Comments Comments: Fever/Gi upset/listless Date Reviewed: 07/04/2017 Reviewed by: Leesa Ellis - Fully Assessed Reason for Visit: Rash, diarrhea [Other] Reason For Visit History Recorded Primary Visit Diagnosis:Malignant neoplasm of lower-inner quadrant of right breast of female, estrogen receptor positive (HCC) [C50.311, Z17.0] Other Visit Diagnosis:Chemotherapy induced diarrhea [K52.1, T45.1X5A] Order(s):promethazine (PHENERGAN) 25 mg tabletTake 1 tablet by mouth every 6 hours as needed. FOR NAUSEADisp: 30 tabletRfl: 1 diphenoxylate-atropine (LOMOTIL) 2.5-0.025 mg per tabletTake 1-2 tablets by mouth every 6 hours as needed for up to 14 days.Disp: 60 tabletRfl: 0 YVONNE MARR [facility] [[id number]] Order #: [id number] FUTURE Prescriptions as of 07/26/2017 Sig: PROMETHAZINE 25 MG TABLET Take 1 tablet by mouth every * DIPHENOXYLATE-ATROPINE 2.5 MG* Take 1-2 tablets by mouth sohail* ANASTROZOLE 1 MG TABLET TAKE 1 TABLET BY MOUTH ONCE D* NERATINIB 40 MG TABLET Take 6 tablets by mouth once * GABAPENTIN 300 MG CAPSULE Take 1 capsule by mouth once * TRAMADOL 50 MG TABLET Take 1 tablet by mouth every * CALCIUM+D ORAL Take 1 tablet by mouth once d* LOSARTAN 50 MG TABLET Take 50 mg by mouth once vivek* LIDOCAINE-PRILOCAINE 2.5 %-2.* Apply to port site 20 min.roxanne* MULTIVITAMIN TABLET Take 1 tablet by mouth once d* DIPHENHYDRAMINE 25 MG TABLET Take 25 mg by mouth twice juan luis* Problem List As Of Date 07/26/2017 Noted Resolved Malignant neoplasm of lower-inner quadrant of r*INVALID FOR* Idiopathic scoliosis of lumbar spine [M41.26] INVALID FOR* Lymphedema [I89.0] INVALID FOR* 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 FOR NAUSEA DIPHENOXYLATE-ATROPINE 2.5 MG-0.025 * 60 t* 0 07/26/2017 08/09/2017 Class: Call Rx Route: ORAL Sig: Take 1-2 tablets by mouth every 6 hours as needed for up to 14 days. Encounter Status:Closed by CHRISSIE GRAHAM on 07/26/17 EMMA Observed: 07/12/2017 Status: COMPLETED Source: [place] 12:[address] [facility] REPOSITORY Telephone (Net 263) RENATE CHRISTIANSEN ([id number]) 1955 [facility] Date Time Provider Department 07/12/17 RIP RIVERS During your visit today, we recorded the following information about you: Emma Scott PSR 07/12/2017 1:35 PM Signed Patient requesting a call back from Nurse Carla. Carla Rodriguez, RN, RN 07/12/2017 2:30 PM Signed Patient called this nurse and stated she verified with [facility] that they will be filling her prescription for her. This nurse told patient that the new prescription was sent to [facility] and was received 07/11 at 2:25pm. Patient instructed to call this nurse if she has any problems with the co-pay and to notify this nurse of her delivery date. Patient stated understanding. Carla Rodriguez RN, RN 07/13/2017 3:53 PM Signed Patient called this nurse today, stating her Neratinib will be delivered Tuesday07/15/2017. Patient will start medication 07/18/2017. This nurse will follow-up with patient 07/20 or 07/21. Patient instructed to call this office if she has any questions or concerns after starting medication. Patient stated understanding. Patient stated she has a Nerlynx co-pay card and patient will only owe $10 a month for 12 months. See co-pay card information below. JEREMIAH # [id number] Group#[id number] ID# [id number] Allergies As of Date: 07/12/2017 Noted Allergy Reaction AMOXIL (AMOXICILLIN) 02/20/2016 2 - Rash ASPIRIN 02/20/2016 14 - Other: See Comments Comments: Internal bleeding CEPHALOSPORINS 02/20/2016 16 - Unknown CIPROCINONIDE 02/20/2016 16 - Unknown CODEINE 02/20/2016 16 - Unknown DEMEROL (MEPERIDINE (PF)) 02/20/2016 16 - Unknown ERYTHROMYCIN 02/20/2016 16 - Unknown LATEX 03/18/2016 2 - Rash NORCO (HYDROCODONE-ACETAMINOPHEN) 03/04/2016 4 - Hives NUBAIN (NALBUPHINE HCL) 02/20/2016 16 - Unknown PERCOCET (OXYCODONE-ACETAMINOPHEN)03/29/2016 2 - Rash 9 - Itching PREDNISONE 02/20/2016 16 - Unknown Comments: per pt, this was given when had appendicitis and received multiple meds and she developed a rash and they had given her prednisone but at some point it was thought that it wasn't working and maybe it was part of the problem. RYE 02/20/2016 14 - Other: See Comments Comments: Migraine headache SULFA (SULFONAMIDE ANTIBIOTICS) 02/20/2016 14 - Other: See Comments Comments: Fever/Gi upset/listless Date Reviewed: 07/04/2017 Reviewed by: Leesa Ellis - Fully Assessed Reason for Visit: Care Coordination [[id number]] Cmt: Neratinib delivery Reason For Visit History Recorded Prescriptions as of 07/12/2017 Sig: NERATINIB 40 MG TABLET Take 6 tablets by mouth once * GABAPENTIN 300 MG CAPSULE Take 1 capsule by mouth once * TRAMADOL 50 MG TABLET Take 1 tablet by mouth every * CALCIUM+D ORAL Take 1 tablet by mouth once d* LOSARTAN 50 MG TABLET Take 50 mg by mouth once vivek* ANASTROZOLE 1 MG TABLET Take 1 tablet by mouth once d* LIDOCAINE-PRILOCAINE 2.5 %-2.* Apply to port site 20 min.roxanne* MULTIVITAMIN TABLET Take 1 tablet by mouth once d* DIPHENHYDRAMINE 25 MG TABLET Take 25 mg by mouth twice juan luis* Problem List As Of Date 07/12/2017 Noted Resolved Malignant neoplasm of lower-inner quadrant of r*INVALID FOR* Idiopathic scoliosis of lumbar spine [M41.26] INVALID FOR* Lymphedema [I89.0] INVALID FOR* 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] INVALID FOR* Malignant neoplasm of lower-inner quadrant of r*INVALID FOR* 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.*INVALID FOR* Encounter Status:Closed by CARLA RODRIGUEZ on 07/12/17 PROGRESS Observed: 07/05/2017 Status: COMPLETED Source: [place] 8:50 AM [facility] REPOSITORY HNO ID: [id number] Author: Malini Sahni (Sw) Service: (none) Author Type: Director Ambulatory Type: Progress Notes Filed: 07/05/2017 8:52 AM Note Text: Social Work Problem Referral Note INFORMATION/REFERRAL : Renate Christiansen 61 year old female was referred by [facility] Social Work for the following reason(s): [facility] paperwork PERSONS INTERVIEWED: patient INTERVENTION: Information AND Referral Service Co-ordination Affect/Mood: The patient is noted as appropriate IDENTIFIED PROBLEMS/NEEDS: [facility] paperwork needs completed and faxed back to them. Intervention/Referral to be provided:Arrangements made for continuity of care IMPRESSION/PLAN: ELOISA met with patient on 07/04 to complete [facility] paperwork. ELOISA completed this and provided to doctor to review/sign. ELOISA faxed this today. F/U APPOINTMENT: DIO Velasco CNSW Observed: 07/05/2017 Status: COMPLETED Source: [place] 12:[address] [facility] REPOSITORY Social Work (MELVA) RENATE CHRISTIANSEN ([id number]) 1955 [facility] Date Time Provider Department 07/05/17 MALINI SAHNI (SW) During your visit today, we recorded the following information about you: DIO Leach 07/05/2017 8:52 AM Signed Social Work Problem Referral Note INFORMATION/REFERRAL : Renate Christiansen 61 year old female was referred by [facility] Social Work for the following reason(s): [facility] paperwork PERSONS INTERVIEWED: patient INTERVENTION: Information ANDamp; Referral Service Co-ordination Affect/Mood: The patient is noted as appropriate IDENTIFIED PROBLEMS/NEEDS: [facility] paperwork needs completed and faxed back to them. Intervention/Referral to be provided:Arrangements made for continuity of care IMPRESSION/PLAN: ELOISA met with patient on 07/04 to complete [facility] paperwork. ELOISA completed this and provided to doctor to review/sign. ELOISA faxed this today. F/U APPOINTMENT: DIO Velasco Allergies As of Date: 07/05/2017 Noted Allergy Reaction AMOXIL (AMOXICILLIN) 02/20/2016 2 - Rash ASPIRIN 02/20/2016 14 - Other: See Comments Comments: Internal bleeding CEPHALOSPORINS 02/20/2016 16 - Unknown CIPROCINONIDE 02/20/2016 16 - Unknown CODEINE 02/20/2016 16 - Unknown DEMEROL (MEPERIDINE (PF)) 02/20/2016 16 - Unknown ERYTHROMYCIN 02/20/2016 16 - Unknown LATEX 03/18/2016 2 - Rash NORCO (HYDROCODONE-ACETAMINOPHEN) 03/04/2016 4 - Hives NUBAIN (NALBUPHINE HCL) 02/20/2016 16 - Unknown PERCOCET (OXYCODONE-ACETAMINOPHEN)03/29/2016 2 - Rash 9 - Itching PREDNISONE 02/20/2016 16 - Unknown Comments: per pt, this was given when had appendicitis and received multiple meds and she developed a rash and they had given her prednisone but at some point it was thought that it wasn't working and maybe it was part of the problem. RYE 02/20/2016 14 - Other: See Comments Comments: Migraine headache SULFA (SULFONAMIDE ANTIBIOTICS) 02/20/2016 14 - Other: See Comments Comments: Fever/Gi upset/listless Date Reviewed: 07/04/2017 Reviewed by: Leesa Ellis - Fully Assessed Reason for Visit: Social Work Services [507] Cmt: [facility] Prescriptions as of 07/05/2017 Sig: GABAPENTIN 300 MG CAPSULE Take 1 capsule by mouth once * NERATINIB 40 MG TABLET Take 6 tablets by mouth once * TRAMADOL 50 MG TABLET Take 1 tablet by mouth every * CALCIUM+D ORAL Take 1 tablet by mouth once d* LOSARTAN 50 MG TABLET Take 50 mg by mouth once vivek* ANASTROZOLE 1 MG TABLET Take 1 tablet by mouth once d* LIDOCAINE-PRILOCAINE 2.5 %-2.* Apply to port site 20 min.roxanne* MULTIVITAMIN TABLET Take 1 tablet by mouth once d* DIPHENHYDRAMINE 25 MG TABLET Take 25 mg by mouth twice juan luis* Problem List As Of Date 07/05/2017 Noted Resolved Malignant neoplasm of lower-inner quadrant of r*INVALID FOR* Idiopathic scoliosis of lumbar spine [M41.26] INVALID FOR* Lymphedema [I89.0] INVALID FOR* 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 REPOSITORY Visit (SP) Office (MELVA) RENATE CHRISTIANSEN ([id number]) 1955 F [place] Date Time Provider Department 07/04/17 2:50 PM RIP RIVERS During your visit today, we recorded the following information about you: Temperature Pulse Blood pressure Weight 97.6 degrees 78/minute 136/68 88.2 kg Rip Rivers DO 07/04/2017 3:18 PM Signed Diagnosis: 1) Breast cancer. HPI: Patient is a 61-year-old female who discovered a lump on the lower inner portion of her right breast. She was seen at [facility] and underwent a right sided breast mass core biopsy on 02/16/2016 by interventional radiology. The tissue specimen demonstrated invasive ductal carcinoma, Yohan grade 2. ER positive (90%, very weak) and WA negative (0%). HER-2 was quantified at 3+. She underwent a right sided lumpectomy and right axillary sentinel lymph node dissection on 02/26/2016. Final pathology demonstrated that within the lumpectomy specimen there was a 2.5 cm single focus of invasive carcinoma. DCIS was present comprising about 10% of the total tumor volume. The grade of the invasive cancer was 3. Margins were negative. The closest was 2 mm from the medial margin and 7 mm from the anterior margin. Lymphovascular invasion was focally present. 4 lymph nodes were retrieved. All lymph nodes were negative. Previous therapy: 1) AC followed by paclitaxel/Herceptin. 2) Adjuvant radiation completed 11/10/2016 Presents for ongoing oncologic management. Interim history: Echocardiogram in June showed EF down to 45%. CHF meds not adjusted and has no symptoms. Specifically she's had no chest pain, pressure or tightness at rest or with exertion. No shortness of breath at rest or with exertion. No orthopnea or PND. No lower extremity swelling or edema. No palpitation were sensation of skipped/racing heartbeat. Symptoms of neuropathy in the hands stable, but still has bothersome symptoms in the feet nocturnally. PMH, medications and allergies as below personally reviewed by me today. Any changes documented in appropriate section. ROS: Constitutional: Denies episodes of fever and night sweats. Neuro: Denies LOONEY, vertigo, dizziness and imbalance. HEENT: No recent change in voice, vision or hearing. Resp: Denies cough, wheeze and hemoptysis. CVS: See above. GI: Denies dysgeusia. Denies symptoms of stomatitis. Denies dysphagia and odynophagia. Denies reflux, n/v, change in bowel habits and abdominal pain. : Denies dysuria or gross hematuria. No symptoms of bladder outlet obstruction. Endo: Denies hot flashes. Denies polyuria and polydipsia. Denies heat and cold intolerance. Musculoskeletal: Denies bone, back, joint and muscular pain. Derm: Denies rash. Denies jaundice and diffuse pruritis. Heme: Denies unusual bleeding and unexplained bruising. Psych: Normal mood. PHYSICAL EXAM: Vitals: Blood pressure 136/68, pulse 78, temperature 36.4 ?C (97.6 ?F), temperature source Temporal Artery, weight 88.2 kg (194 lb 8 oz). Well-appearing and in no acute distress. EYES: Sclerae are anicteric bilaterally. NECK: Supple. No enlargement of thyroid. LYMPHATIC: There is no palpable cervical, supraclavicular adenopathy. RESPIRATORY: Inspiratory breath sounds are of normal intensity in all barnes. No rales, wheezes or rhonchi. CARDIOVASCULAR: Rhythm is regular. Normal intensity S1/S2. There is no gallop or murmur. ABDOMEN: The abdomen is nondistended. No organomegaly. No tenderness. Extremities: No swelling or edema of legs or feet. SKIN: No rash. NEUROLOGIC: elevator operator service II-XII are grossly intact. No focal motor weakness. Patellar DTRs are normal. MUSCULOSKELETAL: No muscle wasting. ASSESSMENT/PLAN: (C50.311) Malignant neoplasm of lower-inner quadrant of right female breast (HCC) (primary encounter diagnosis) Assessment: -KPS is 100%. -Postmenopausal female. -pT2 pN0(sln) MX ER positive (9%, very weak) WA negative HER overexpressed stage IIA invasive ductal carcinoma the right breast. -Stable symptoms of neuropathy. -Symptomatically tolerating Herceptin well, but has history of chemotherapy-induced cardiomyopathy analysis had second significant decline in ejection fraction while on Herceptin. Fortunately she remains asymptomatic. -I recommended stopping Herceptin. We discussed the use of neratinib. I discussed the rationale (I think it reasonable to consider her high risk since she was not able to complete the year's worth of Herceptin), logistics, potential risks (including ), benefits and alternatives, as well as the personnel involved in the administration of neratinib. I answered her questions in detail and she verbalized understanding and agreed with the recommended therapy. -I discussed the tapering dose of loperamide as recommended by the manufacture, i.e. 4 mg 3 times daily during the first 2 weeks of the drug then 4 mg twice a day during weeks 3 through 8 and then 4 mg on an as-needed basis weeks 9 through the remainder of the year of treatment. Plan: -Continue anastrozole. -Continue gabapentin for neuropathy. -Rx for neratinib sent to specialty pharmacy. 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 These are well controlled with the present dose of gabapentin, 300 mg capsule at bedtime. Plan: -Continue. 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 -She is on Cozaar and tolerating it well. Blood pressure is under good control. -She is scheduled for a follow-up echocardiogram in 3 months. Plan: -Discontinue Herceptin. -Continue Cozaar. -Repeat echocardiogram in 3 months. Rip Rivers DO Referring Provider: RIP RIVERS [[id number]] Allergies As of Date: 07/04/2017 Noted Allergy Reaction AMOXIL (AMOXICILLIN) 02/20/2016 2 - Rash ASPIRIN 02/20/2016 14 - Other: See Comments Comments: Internal bleeding CEPHALOSPORINS 02/20/2016 16 - Unknown CIPROCINONIDE 02/20/2016 16 - Unknown CODEINE 02/20/2016 16 - Unknown DEMEROL (MEPERIDINE (PF)) 02/20/2016 16 - Unknown ERYTHROMYCIN 02/20/2016 16 - Unknown LATEX 03/18/2016 2 - Rash NORCO (HYDROCODONE-ACETAMINOPHEN) 03/04/2016 4 - Hives NUBAIN (NALBUPHINE HCL) 02/20/2016 16 - Unknown PERCOCET (OXYCODONE-ACETAMINOPHEN)03/29/2016 2 - Rash 9 - Itching PREDNISONE 02/20/2016 16 - Unknown Comments: per pt, this was given when had appendicitis and received multiple meds and she developed a rash and they had given her prednisone but at some point it was thought that it wasn't working and maybe it was part of the problem. 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] 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, T45.1X5A] Order(s):gabapentin (NEURONTIN) 300 mg capsuleTake 1 capsule by mouth once daily.Disp: 90 capsuleRfl: 3 neratinib 40 mg tabTake 6 tablets by mouth once daily.Disp: 180 tabletRfl: 5 Follow-up and Disposition History Recorded Prescriptions as of 07/04/2017 Sig: TRAMADOL 50 MG TABLET Take 1 tablet by mouth every * CALCIUM+D ORAL Take 1 tablet by mouth once d* LOSARTAN 50 MG TABLET Take 50 mg by mouth once vivek* ANASTROZOLE 1 MG TABLET Take 1 tablet by mouth once d* LIDOCAINE-PRILOCAINE 2.5 %-2.* Apply to port site 20 min.roxanne* MULTIVITAMIN TABLET Take 1 tablet by mouth once d* DIPHENHYDRAMINE 25 MG TABLET Take 25 mg by mouth twice juan luis* GABAPENTIN 300 MG CAPSULE Take 1 capsule by mouth once * NERATINIB 40 MG TABLET Take 6 tablets by mouth once * Problem List As Of Date 07/04/2017 Noted Resolved Malignant neoplasm of lower-inner quadrant of r*INVALID FOR* Idiopathic scoliosis of lumbar spine [M41.26] INVALID FOR* Lymphedema [I89.0] INVALID FOR* 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 HPI: Patient is a 61-year-old female who discovered a lump on the lower inner portion of her right breast. She was seen at [facility] and underwent a right sided breast mass core biopsy on 02/16/2016 by interventional radiology. The tissue specimen demonstrated invasive ductal carcinoma, Buckner grade 2. ER positive (90%, very weak) and WA negative (0%). HER-2 was quantified at 3+. She underwent a right sided lumpectomy and right axillary sentinel lymph node dissection on 02/26/2016. Final pathology demonstrated that within the lumpectomy specimen there was a 2.5 cm single focus of invasive carcinoma. DCIS was present comprising about 10% of the total tumor volume. The grade of the invasive cancer was 3. Margins were negative. The closest was 2 mm from the medial margin and 7 mm from the anterior margin. Lymphovascular invasion was focally present. 4 lymph nodes were retrieved. All lymph nodes were negative. Previous therapy: 1) AC followed by paclitaxel/Herceptin. 2) Adjuvant radiation completed 11/10/2016 Presents for ongoing oncologic management. Interim history: Echocardiogram in June showed EF down to 45%. CHF meds not adjusted and has no symptoms. Specifically she's had no chest pain, pressure or tightness at rest or with exertion. No shortness of breath at rest or with exertion. No orthopnea or PND. No lower extremity swelling or edema. No palpitation were sensation of skipped/racing heartbeat. Symptoms of neuropathy in the hands stable, but still has bothersome symptoms in the feet nocturnally. PMH, medications and allergies as below personally reviewed by me today. Any changes documented in appropriate section. ROS: Constitutional: Denies episodes of fever and night sweats. Neuro: Denies LOONEY, vertigo, dizziness and imbalance. HEENT: No recent change in voice, vision or hearing. Resp: Denies cough, wheeze and hemoptysis. CVS: See above. GI: Denies dysgeusia. Denies symptoms of stomatitis. Denies dysphagia and odynophagia. Denies reflux, n/v, change in bowel habits and abdominal pain. : Denies dysuria or gross hematuria. No symptoms of bladder outlet obstruction. Endo: Denies hot flashes. Denies polyuria and polydipsia. Denies heat and cold intolerance. Musculoskeletal: Denies bone, back, joint and muscular pain. Derm: Denies rash. Denies jaundice and diffuse pruritis. Heme: Denies unusual bleeding and unexplained bruising. Psych: Normal mood. PHYSICAL EXAM: Vitals: Blood pressure 136/68, pulse 78, temperature 36.4 ?C (97.6 ?F), temperature source Temporal Artery, weight 88.2 kg (194 lb 8 oz). Well-appearing and in no acute distress. EYES: Sclerae are anicteric bilaterally. NECK: Supple. No enlargement of thyroid. LYMPHATIC: There is no palpable cervical, supraclavicular adenopathy. RESPIRATORY: Inspiratory breath sounds are of normal intensity in all barnes. No rales, wheezes or rhonchi. CARDIOVASCULAR: Rhythm is regular. Normal intensity S1/S2. There is no gallop or murmur. ABDOMEN: The abdomen is nondistended. No organomegaly. No tenderness. Extremities: No swelling or edema of legs or feet. SKIN: No rash. NEUROLOGIC: elevator operator service II-XII are grossly intact. No focal motor weakness. Patellar DTRs are normal. MUSCULOSKELETAL: No muscle wasting. ASSESSMENT/PLAN: (C50.311) Malignant neoplasm of lower-inner quadrant of right female breast (HCC) (primary encounter diagnosis) Assessment: -KPS is 100%. -Postmenopausal female. -pT2 pN0(sln) MX ER positive (9%, very weak) WA negative HER overexpressed stage IIA invasive ductal carcinoma the right breast. -Stable symptoms of neuropathy. -Symptomatically tolerating Herceptin well, but has history of chemotherapy-induced cardiomyopathy analysis had second significant decline in ejection fraction while on Herceptin. Fortunately she remains asymptomatic. -I recommended stopping Herceptin. We discussed the use of neratinib. I discussed the rationale (I think it reasonable to consider her high risk since she was not able to complete the year's worth of Herceptin), logistics, potential risks (including ), benefits and alternatives, as well as the personnel involved in the administration of neratinib. I answered her questions in detail and she verbalized understanding and agreed with the recommended therapy. -I discussed the tapering dose of loperamide as recommended by the manufacture, i.e. 4 mg 3 times daily during the first 2 weeks of the drug then 4 mg twice a day during weeks 3 through 8 and then 4 mg on an as-needed basis weeks 9 through the remainder of the year of treatment. Plan: -Continue anastrozole. -Continue gabapentin for neuropathy. -Rx for neratinib sent to specialty pharmacy. 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 These are well controlled with the present dose of gabapentin, 300 mg capsule at bedtime. Plan: -Continue. 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 -She is on Cozaar and tolerating it well. Blood pressure is under good control. -She is scheduled for a follow-up echocardiogram in 3 months. Plan: -Discontinue Herceptin. -Continue Cozaar. -Repeat echocardiogram in 3 months. Rip Rivers, [facility] ABS GR + CBC Collected: 07/04/2017 Status: F Source: [place] 2:[address] [facility] REPOSITORY TYPE CODE TESTS RESULT OUT OF REFERENCE UNITS RANGE LAB WWBC 3.70-11.00 k/uL [facility] WBC 5.71 LAB WRBC 3.90-5.20 m/uL [place] RBC 4.08 LAB WHGB 11.5-15.5 g/dL [facility] Hemoglobin 13.0 LAB WHCT 36.0-46.0 % [facility] Hematocrit 39.2 LAB WMCV 80.0-100.0 fL [place] MCV 96.1 LAB WMCH 26.0-34.0 pg [facility] MCH 31.9 LAB WMCHC 30.5-36.0 g/dL [place] MCHC 33.2 LAB WRDW 11.5-15.0 % [facility] RDW 13.4 LAB WPLT 150-400 k/uL [place] Platelet Cnt 208 LAB WMPV 9.0-12.7 fL Low [facility] MPV 8.9 Result Comment: Test performed at: [facility], [address] [place] [address]. LAB ABGRAN 1.45-7.50 k/uL Absol Gran 3.62 Count HOSP Observed: 07/04/2017 Status: COMPLETED Source: [place] 2:[address] [facility] REPOSITORY Infusion Center ([facility]) RENATE CHRISTIANSEN ([id number]) 1955 F [facility] Date Time Provider Department 07/04/17 2:30 PM [facility] During your visit today, we recorded the following information about you: Referring Provider: RIP RIVERS [[id number]] Allergies As of Date: 07/04/2017 Noted Allergy Reaction AMOXIL (AMOXICILLIN) 02/20/2016 2 - Rash ASPIRIN 02/20/2016 14 - Other: See Comments Comments: Internal bleeding CEPHALOSPORINS 02/20/2016 16 - Unknown CIPROCINONIDE 02/20/2016 16 - Unknown CODEINE 02/20/2016 16 - Unknown DEMEROL (MEPERIDINE (PF)) 02/20/2016 16 - Unknown ERYTHROMYCIN 02/20/2016 16 - Unknown LATEX 03/18/2016 2 - Rash NORCO (HYDROCODONE-ACETAMINOPHEN) 03/04/2016 4 - Hives NUBAIN (NALBUPHINE HCL) 02/20/2016 16 - Unknown PERCOCET (OXYCODONE-ACETAMINOPHEN)03/29/2016 2 - Rash 9 - Itching PREDNISONE 02/20/2016 16 - Unknown Comments: per pt, this was given when had appendicitis and received multiple meds and she developed a rash and they had given her prednisone but at some point it was thought that it wasn't working and maybe it was part of the problem. RYE 02/20/2016 14 - Other: See Comments Comments: Migraine headache SULFA (SULFONAMIDE ANTIBIOTICS) 02/20/2016 14 - Other: See Comments Comments: Fever/Gi upset/listless Date Reviewed: 07/04/2017 Reviewed by: Leesa Ellis - Fully Assessed Reason for Visit: Blood Draw (CVAD) [1758] Primary Visit Diagnosis:Malignant neoplasm of lower-inner quadrant of right female breast, unspecified estrogen receptor status (HCC) [C50.311] Prescriptions as of 07/04/2017 Sig: TRAMADOL 50 MG TABLET Take 1 tablet by mouth every * GABAPENTIN 300 MG CAPSULE Take 1 capsule by mouth once * CALCIUM+D ORAL Take 1 tablet by mouth once d* LOSARTAN 50 MG TABLET Take 50 mg by mouth once vivek* ANASTROZOLE 1 MG TABLET Take 1 tablet by mouth once d* LIDOCAINE-PRILOCAINE 2.5 %-2.* Apply to port site 20 min.roxanne* MULTIVITAMIN TABLET Take 1 tablet by mouth once d* DIPHENHYDRAMINE 25 MG TABLET Take 25 mg by mouth twice juan luis* Problem List As Of Date 07/04/2017 Noted Resolved Malignant neoplasm of lower-inner quadrant of r*INVALID FOR* Idiopathic scoliosis of lumbar spine [M41.26] INVALID FOR* Lymphedema [I89.0] INVALID FOR* 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 [place], [place] [address] OFFICE VISIT Date of Service: 06/02/17 MR#: [id number] Acct: [id number] Name: RENATE CHRISTIANSEN Rep #: [id number] : 1955 Provider: Mayco Galeano MD Age/Sex: 61/F Location: [facility] [place] Status: Signed HPI 6 M FU: Chief Complaint: Follow-up visit. Details: RENATE CHRISTIANSEN, is a 61 F who presents to the office today for a follow-up cardiovascular visit. She is a pleasant 61-year-old lady with a history of breast carcinoma status post mastectomy and chemotherapy on Herceptin. Who is been having serial echocardiograms. She did have an echocardiogram in March 2016 at that time he demonstrated ejection fraction of 72%. Another echocardiogram in September 2016 demonstrated ejection fraction of 55%. In November of this year was noted to be 50% and more recently in May is 45% with mild global hypokinesis. She has not had any pedal edema no chest pain no paroxysmal nocturnal dyspnea or pedal edema she continues to receive Herceptin every 3 weeks. She has been compliant with her other medications and continues to follow with the oncologist the nurse. At this time I do not see any evidence of heart failure. Her physical exam demonstrates clear lung barnes regular rate and rhythm and no pedal edema she remains on the metoprolol as well as the losartan. With good blood pressure control. Intake Vital Signs06/02/17 Height 5 ft 1.5 in 06/02/17 Weight: 191 lb 06/02/17 Body Mass Index (BMI) 35.4 06/02/17 Blood Pressure 118/72 06/02/17 Blood Pressure Location Lt brachial Intake Visit Reasons: 6 M FU Ict Project Manager Required: No Accompanied by: Is patient in pain?: No Allergies acetaminophen [From Percocet] Allergy (Verified 05/31/17 16:31) hives and nausea amoxicillin Allergy (Verified 04/19/16 18:24) Fever and skin rash aspirin Allergy (Verified 04/19/16 18:24) Upset Stomach Cephalosporins Allergy (Verified 04/19/16 18:24) Fever and skin rash ciprofloxacin [From Cipro] Allergy (Verified 04/19/16 18:24) Fever and skin rash codeine Allergy (Verified 04/19/16 18:24) Fever and skin rash erythromycin base Allergy (Verified 04/19/16 18:24) Fever and skin rash hydrocodone [From [place]] Allergy (Verified 05/31/17 16:31) hives and nausea latex Allergy (Verified 04/19/16 18:24) Rash meperidine [From Demerol] Allergy (Verified 04/19/16 18:24) Upset Stomach nalbuphine [From Nubain] Allergy (Verified 04/19/16 18:24) Fever and skin rash oxycodone [From Percocet] Allergy (Verified 05/31/17 16:31) hives and nausea prednisone Allergy (Verified 04/19/16 18:24) Unknown Sulfa (Sulfonamide Antibiotics) Allergy (Verified 04/19/16 18:24) Fever and skin rash RYE Allergy (Uncoded 04/19/16 18:24) Other Medications Hydrocodone Bit/Homatropine [Hycodan Syrup] 5 ml PO Q6H PRN PRN #60 udc 04/19/16 [Rx Confirmed 06/02/17] Metoprolol(XL)Succ [Toprol Xl (Beta Ruth)] 25 mg PO DAILY 04/19/16 [History Confirmed 06/02/17] Multivitamins,Therapeutic [Multivitamin] 1 tab PO DAILY 04/19/16 [History Confirmed 06/02/17] acetaminophen 325 mg tablet 325 mg PO .prn PRN tab 05/31/17 [History Confirmed 05/31/17] anastrozole 1 mg tablet 1 mg PO QDAY 05/31/17 [History Confirmed 05/31/17] famotidine 10 mg tablet 10 mg PO QDAY 05/31/17 [History Confirmed 05/31/17] gabapentin 100 mg capsule 100 mg PO QDAY 05/31/17 [History Confirmed 05/31/17] losartan 50 mg tablet 50 mg PO QDAY 05/31/17 [History Confirmed 05/31/17] tmgwqzmnnffm-Gw-yxnn-minerals tablet tab PO 06/02/17 [History Confirmed 06/02/17] Ejection fraction %: 45 to 49 PFSH Medical History Chemotherapy management, encounter for (Chronic) Breast cancer, right breast (Chronic) Cardiomyopathy, secondary (Chronic) Surgical History History of lumpectomy of right breast (Chronic) History of appendectomy (Resolved) Family History Sister A-fib CAD (coronary artery disease) Grandmother A-fib Social History Smoking Status: Never smoker alcohol intake: never substance use type: does not use caffeine: No what type of physical activity do you participate in: none seatbelt use: always do you feel safe at home: Yes ROS Const Const: Positive for fatigue and difficulty sleeping; negative for body ache, fever(s), chills, night sweats, daytime sleepiness, weight gain, weight loss, increased appetite, poor appetite, anorexia, other, frequent falls, headache(s), weakness or excessive sweating Eyes Eyes: Negative for blind spots, loss of peripheral vision, transient loss of vision, change in vision, floaters, tunnel vision, other, blurry vision or double vision ENT ENT: Negative for hearing loss, Negative for tinnitus, Negative for Nosebleed/epistaxis, Negative for post nasal drip, Negative for bleeding gums, Negative for hoarseness, Negative for neck pain, Negative for dry mouth, Negative for other, Negative for balance problems, Negative for dizziness, Negative for headache(s), Negative for tongue swelling, Negative for lip swelling Cardio Chest Pain: No Palpitations: Positive for No Edema: None Muscle aches with walking: None Resp Respiratory: Negative for SOB with activity, SOB at rest, SOB orthopnea\SOB lying down, Coughing up blood/hemoptysis, chest congestion, pain on inspiration, snoring, stridor, wheezing, crackles, paroxysmal nocturnal dyspnea or other GI GI: Negative nausea, vomiting, heartburn, constipation, belching, bloating, cramping, vomiting blood/hematemesis, bright, red blood in stools, black,tarry stools, loose stools, Difficulty Swallowing or other : Negative for hematuria, frequent nighttime urination/ nocturia, erectile dysfunction or abnormal vaginal bleeding Musc Musc: Negative for muscle aches/ myalgia, muscle weakness, joint pain or balance problems Skin Skin: Negative redness, non-healing lesions, unusual bruising, skin ulcer, wounds, jaundice, other or rash Neuro Neuro: Negative for dizziness, Negative for lightheadedness, Negative for near syncope, Negative for syncope, Negative for orthostatic symptoms, Negative for frequent falls, Negative for headache(s), Negative for weakness, Negative for confusion, Negative for memory loss, Negative for restless legs, Negative for blurry vision, Negative for double vision, Negative for vertigo, Negative for seizures, Negative for lack of coordination, Negative for other Santino Hematologic/Lymphatic: Negative for easy bleeding, easy bruising, enlarged lymph nodes or other Endo Endo: Positive for fatigue and cold intolerance ( neuropathy); negative for heat intolerance, excessive sweating, flushing, increased thirst/drinking, increased hunger, hair loss, hair growth or other Psych Psych: Negative for anxiety, depression, thoughts of harming anyone, thoughts of harming yourself, visual hallucinations, panic attacks or audible hallucinations Allergy Allergy/Immunology: Negative for throat swelling, Negative for tongue swelling, Negative for hives, Negative for rash, Negative for lip swelling Cardiology Exam Const Appearance: cooperative, healthy appearing, well developed, well groomed and no acute distress Nutritional Appearance: well nourished and average body habitus Orientation: alert, awake and oriented x3 Head Head: normal to inspection, normocephalic and atraumatic Ears: hearing grossly normal bilaterally and external ears normal Nose: external nose normal, nasal mucous membranes and turbinates normal, nares normal, septum normal, no nasal discharge Face and Sinus: face symmetric Mouth: oral mucosae normal, tongue normal, oropharynx normal and moist mucous membranes Teeth and gingiva: dentition normal Throat: posterior oropharynx normal, tonsils normal and uvula midline Eyes General: appearance normal, both eyes and all related structures Eyelids: eyelids normal Conjunctivae: conjunctivae normal Pupils: PERRL, normal by confrontation and accommodation normal EOM: EOM intact bilaterally Neck Neck: normal visual inspection, trachea midline and no JVD JVD: +5 Carotids: normal carotid upstroke and bounding pulses Chest Chest inspection: normal inspection of the chest, symmetric chest movement and normal respiratory effort Auscultation: Bilateral: Clear to Auscultation Cardio Palpation: normal PMI Rate: regular rate Rhythm: regular rhythm Heart sounds: S1 normal, S2 normal and normal, physiologic split S2; negative rub, gallop or murmur GI GI: normal to inspection, soft, no hepatosplenomegaly and bowel sounds present Neuro General: alert, awake, oriented x3, no focal sensory deficit, gait normal and moves all extremities Skin Skin: no rashes or lesions noted Extremities Pulses: Normal: Right Femoral Pulse, Left Femoral Pulse, Right Dorsalis Pedis Pulse, Left Dorsalis Pedis Pulse, Right Posterior Tibial Pulse, Left Posterior Tibial Pulse, Right Radial Pulse, Left Radial Pulse Lower Extremity Edema: None: Bilateral Musculoskel Musculoskeletal: No joint tenderness Psych Psychological: normal affect Assessment AND Plan 1. 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 She is on a beta-ruth as well as the ARB E and will continue to follow her left ventricular ejection fraction carefully. I will suggest that we repeat an echocardiogram in August of this year to let us know how she is doing. Hopefully the losartan and beta-ruth would improve remodeling. Orders Orders: 2. Essential hypertension I10; I10; I10 Plan Her blood pressure appears to be under good control at this time and I would not suggest that we make any changes. Please not hesitate to contact me if any issues arise. I have suggested to her that should she have any symptoms in terms of shortness of breath or pedal edema or excessive weight gain she should not hesitate to let me know. Thank you for allowing me to participate in the care of your patient. Please don't hesitate to call if any issues arise Orders Orders: Plan Detail Follow Up 6 Months (medical office clerk) 06/02/17 1417 <Electronically signed by Mayco Galeano MD> Date Mayco Galeano MD Cosigner Signature: Date (if applicable) CC: Rip Rivers DO ECHOCARDIOGRAM COMPLETE Observed: 05/26/2017 Status: F Source: [place] 6:10 PM [facility] REPOSITORY [facility] Cardiovascular Services [address] [place] [address] Echo Complete 05/26/17 1355 MR#: [id number] Acct: [id number] Name: RENATE CHRISTIANSEN Rep #: [id number] : 1955 61 From: Mayco Galeano MD Attending Dr: Mayco Galeano MD Status: REG CLI Ordering Dr: Mayco Galeano MD Date: 05/26/17 Location: [facility] Sex: F C Admitted: Reason For Study: CMP Procedure This was a 2D Doppler, Color Flow transthoracic echocardiogram. Exam performed in department. Left Ventricle Normal LV size. The estimated ejection fraction is 45 %. No regional wall motion abnormalities noted. There is mild global hypokinesis of the left ventricle. Right Ventricle Normal RV size. Normal systolic function. Atria Normal left atrium. Normal right atrium. Mitral Valve Normal mitral valve. Tricuspid Valve Normal tricuspid valve. Mild tricuspid valve insufficiency. Aortic Valve Normal aortic valve. Trisinus/trileaflet aortic valve. Pulmonic Valve Normal pulmonic valve. Great Vessels Normal aortic root. The pulmonary artery is normal size. Pericardium/Pleural No pericardial effusion. MMode/2D Measurements AND Calculations LVIDd: 4.5 cm IVSd: 0.92 cm Ao root diam: 3.3 cm LVIDs: 3.2 cm LVPWd: 0.95 cm LA dimension: 3.6 cm RVDd: 2.9 cm FS: 29.8 % LAV(MOD-bp): 39.9 ml LA A4 area: 12.1 cm2 RA A4 area: 10.6 cm2 LAV(MOD-bp) Indexed: 21.6 ml/m2 LAV(MOD-sp2): 43.4 ml LAV(MOD-sp4): 31.4 ml Time Measurements MV dec time: 0.19 sec Doppler Measurements AND Calculations MV E max johnathan: 80.0 cm/sec Lat Peak E' Johnathan: 10.4 cm/sec Med Peak E' Johnathan: 7.7 cm/sec MV A max johnathan: 115.2 cm/sec E/E' lat: 7.7 E/E' med: 10.4 MV E/A: 0.69 Ao V2 max: 118.0 cm/sec LV V1 max: 90.2 cm/sec PA V2 max: 93.8 cm/sec Ao max P.6 mmHg LV V1 max P.3 mmHg TR max johnathan: 255.4 cm/sec TR max P.1 mmHg Interpretation Summary Normal LV size. The estimated ejection fraction is 45 %. No regional wall motion abnormalities noted. There is mild global hypokinesis of the left ventricle. Compred with the previous there is a mild decline in LV function Ordering Physician: Mayco Galeano Referring Physician: Rip Rivers Performed By: Ely Guerrero, STACIE, RVT 05/26/171808 Date Mayco Galeano MD CC: Mayco Galeano MD; ARMANDO Rivers DO Date Dictated: 05/26/17 1355 Date Transcribed: 05/26/171808 Cotton Roll Packer: Signed PROGRESS Observed: 05/26/2017 Status: COMPLETED Source: [place] 9:[address] [facility] REPOSITORY O ID: [id number] Author: Adriana Davenport Psr Service: (none) Author Type: (none) Type: Progress Notes Filed: 05/26/2017 9:57 AM Note Text: pap logged. letter sent. Adriana Davenport Psr CNCO Observed: 05/24/2017 Status: COMPLETED Source: [place] 2:[address] [facility] REPOSITORY HNO ID: [id number] Author: Mammography Coordinator Service: (none) Author Type: Physician Type: Letter Filed: 05/25/2017 11:32 PM Note Text: May 24, 2017 PID: [id number] Renate JonhPablo Christiansen [address] [place] [address] Dear Pablo Christiansen, Your recent breast imaging examination performed on 05/24/2017 showed an area that we believe is probably benign (not cancer). A six month follow-up is recommended to ensure your breast health. Please call [phone] to schedule an appointment for these tests if you have not already done so. Early detection of cancer is very important. We also understand recommendations regarding breast cancer screening are controversial. Please discuss with your primary care provider which strategy is best for you and whether a mammogram is right for you. Your breast images and report will be kept on file here as part of your permanent medical record and are available for your continuing care. Thank you for allowing us to help in meeting your health care needs. Sincerely, Dr. Lucas Interpreting Radiologist [facility] (# mo Follow-up) CNCO Observed: 05/24/2017 Status: COMPLETED Source: [place] 2:[address] [facility] REPOSITORY HNO ID: [id number] Author: Mammography Coordinator Service: (none) Author Type: Physician Type: Letter Filed: 05/25/2017 11:32 PM Note Text: May 24, 2017 PID: [id number] Renate Christiansen [address] [place] [address] Dear Ms. Christiansen, Your recent breast imaging examination performed on 05/24/2017 showed an area that we believe is probably benign (not cancer). A six month follow-up is recommended to ensure your breast health. Please call [phone] to schedule an appointment for these tests if you have not already done so. Early detection of cancer is very important. We also understand recommendations regarding breast cancer screening are controversial. Please discuss with your primary care provider which strategy is best for you and whether a mammogram is right for you. Your breast images and report will be kept on file here as part of your permanent medical record and are available for your continuing care. Thank you for allowing us to help in meeting your health care needs. Sincerely, Dr. Lucas Interpreting Radiologist [facility] (# mo Follow-up) HOSP Observed: 05/24/2017 Status: COMPLETED Source: [place] 2:[address] [facility] REPOSITORY Infusion Center ([facility]) RENATE CHRISTIANSEN ([id number]) 1955 F [place] Date Time Provider Department 05/24/17 2:30 PM TREATMENT RM 6 [facility] During your visit today, we recorded the following information about you: Temperature Pulse Blood pressure 97.5 degrees 65/minute 142/66 Referring Provider: RIP RIVERS [[id number]] Allergies As of Date: 05/24/2017 Noted Allergy Reaction AMOXIL (AMOXICILLIN) 02/20/2016 2 - Rash ASPIRIN 02/20/2016 14 - Other: See Comments Comments: Internal bleeding CEPHALOSPORINS 02/20/2016 16 - Unknown CIPROCINONIDE 02/20/2016 16 - Unknown CODEINE 02/20/2016 16 - Unknown DEMEROL (MEPERIDINE (PF)) 02/20/2016 16 - Unknown ERYTHROMYCIN 02/20/2016 16 - Unknown LATEX 03/18/2016 2 - Rash NORCO (HYDROCODONE-ACETAMINOPHEN) 03/04/2016 4 - Hives NUBAIN (NALBUPHINE HCL) 02/20/2016 16 - Unknown PERCOCET (OXYCODONE-ACETAMINOPHEN)03/29/2016 2 - Rash 9 - Itching PREDNISONE 02/20/2016 16 - Unknown Comments: per pt, this was given when had appendicitis and received multiple meds and she developed a rash and they had given her prednisone but at some point it was thought that it wasn't working and maybe it was part of the problem. RYE 02/20/2016 14 - Other: See Comments Comments: Migraine headache SULFA (SULFONAMIDE ANTIBIOTICS) 02/20/2016 14 - Other: See Comments Comments: Fever/Gi upset/listless Date Reviewed: 05/24/2017 Reviewed by: Rosemary Romero RN, RN - Fully Assessed Reason for Visit: Chemotherapy Treatment [771] Primary Visit Diagnosis:Malignant neoplasm of lower-inner quadrant of right breast of female, estrogen receptor positive (HCC) [C50.311, Z17.0] Order(s):TREATMENT PARAMETER-NOT NEEDED [8989908] Order #: [id number]: 1 [facility] NURSING COMMUNICATION [[id number]] Order #: [id number]: 1 [facility] [[id number]] Order #: [id number]: 1 STANDING trastuzumab 496.8 mg in NaCl 0.9% 250 mL (HERCEPTIN)Disp: Rfl: NaCl 0.9% iv infusionDisp: Rfl: diphenhydrAMINE 50 mg injection (BENADRYL)Disp: Rfl: hydrocortisone sodium succinate (PF) 100 mg injection (Solu-CORTEF)Disp: Rfl: EPINEPHrine 1 mg/mL (1 mL) 0.3 mg injectionDisp: Rfl: Prescriptions as of 05/24/2017 Sig: TRAMADOL 50 MG TABLET Take 1 tablet by mouth every * GABAPENTIN 300 MG CAPSULE Take 1 capsule by mouth once * CALCIUM+D ORAL Take 1 tablet by mouth once d* LOSARTAN 50 MG TABLET Take 50 mg by mouth once vivek* ANASTROZOLE 1 MG TABLET Take 1 tablet by mouth once d* LIDOCAINE-PRILOCAINE 2.5 %-2.* Apply to port site 20 min.roxanne* MULTIVITAMIN TABLET Take 1 tablet by mouth once d* DIPHENHYDRAMINE 25 MG TABLET Take 25 mg by mouth twice juan luis* Problem List As Of Date 05/24/2017 Noted Resolved Malignant neoplasm of lower-inner quadrant of r*INVALID FOR* Idiopathic scoliosis of lumbar spine [M41.26] INVALID FOR* Lymphedema [I89.0] INVALID FOR* 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] INVALID FOR* Malignant neoplasm of lower-inner quadrant of r*INVALID FOR* Prescriptions ordered this encounter Disp Refills Start End TRASTUZUMAB IV PGBK 05/24/2017 05/25/2017 Route: INTRAVENOUS SODIUM CHLORIDE 0.9 % INTRAVENOUS SO* 05/24/2017 Cmt: Inform physician Route: INTRAVENOUS DIPHENHYDRAMINE 50 MG/ML INJECTION S* 05/24/2017 Route: INTRAVENOUS HYDROCORTISONE SOD SUCCINATE (PF) 10* 05/24/2017 Route: INTRAVENOUS EPINEPHRINE 1 MG/ML (1 ML) INJECTION* 05/24/2017 Route: INTRAMUSCULA Encounter Status:Closed by ROSEMARY ROMERO on 05/24/17 PROGRESS Observed: 05/24/2017 Status: COMPLETED Source: [place] 1:40 PM [facility] REPOSITORY HNO ID: [id number] Author: Bridget Hall Rdms Service: (none) Author Type: (none) Type: Progress Notes Filed: 05/24/2017 1:41 PM Note Text: Radiology Service Progress Note PATIENT NAME: Renate Christiansen DATE OF SERVICE: May 24, 2017 TIME: 1:40 PM PATIENT IDENTITY VERIFICATION COMPLETED USING TWO (2) METHODS: Patient confirmed name verbally and Date of . PATIENT GENDER DATA: Female. status: : No status: NO. PATIENT RELEVANT IMPLANT DATA REVIEWED: Not Applicable RADIOLOGY DEPARTMENT: Ultrasound PERIPHERAL IV DATA: Not applicable SIGNED BY: Bridget Hall Rdms May 24, 2017 1:40 PM [place] Observed: 05/24/2017 Status: F Source: [facility] 1:[address] [facility] REPOSITORY * * *Final Report* * * DATE OF EXAM: May 24 2017 1:36PM WRU [id number] - [facility] LT / PROCEDURE REASON: call back bilateral breast / abnormal mammogram * * * * Physician Interpretation * * * * #[id number] - [facility] DIAGNOSTIC [place] BILATERAL DIGITAL DIAGNOSTIC MAMMOGRAM WITH CAD: 05/24/2017 HISTORY: Callback Bilateral / Abnormal Mammogram. RESULT: TECHNIQUE: The study was acquired using full field digital technology and interpreted from soft copy. Current study was also evaluated with a Computer Aided Detection (CAD). Comparison is made to exam dated: 05/16/2017 mammogram - [facility]. The tissue of both breasts is heterogeneously dense. This may lower the sensitivity of mammography. There is an asymmetry in the left breast upper outer aspect middle depth. No other significant masses, calcifications, or other findings are seen in either breast. INCOMPLETE: NEEDS ADDITIONAL IMAGING EVALUATION The asymmetry in the left breast is indeterminate. An ultrasound is recommended. #[id number] - [facility] ULTRASOUND OF LEFT BREAST: 05/24/2017 RESULT: Comparison is made to exam dated: 05/16/2017 mammogram - [facility]. Ultrasound of the left breast was performed. Morales scale images of the real-time examination were reviewed. There is a benign area of fibrocystic tissue in the left breast upper inner aspect anterior depth. IMPRESSION: PROBABLY BENIGN - SHORT TERM INTERVAL FOLLOW-UP RECOMMENDED - FOLLOW-UP RECOMMENDED The area of fibrocystic tissue in the left breast is benign. A follow-up left mammogram in 6 months is recommended to demonstrate stability. Bruno reilly/alicia:05/24/2017 14:54:35 Head Silverman: Angie PAGAN)(Joan), [facility] letter sent: # Mo FU OVERALL STUDY BIRADS: 3 Probably benign finding - short term interval follow-up recommended Cotton Roll Packer: Alicia Transcribe Date/Time: May 24 2017 12:47P Dictated by : BRUNO LUCAS DO This examination was interpreted and the report reviewed and electronically signed by: BRUNO LUCAS DO on May 24 2017 2:54PM EST [id number] [facility] DIAGNOSTIC [facility] Observed: 05/24/2017 Status: F Source: [place] 1:12 PM [facility] REPOSITORY * * *Final Report* * * DATE OF EXAM: May 24 2017 1:12PM [facility] 0620 - [facility] DIAGNOSTIC [place] / PROCEDURE REASON: call back bilateral breast / abnormal mammogram * * * * Physician Interpretation * * * * RESULT: #[id number] - [facility] DIAGNOSTIC [place] BILATERAL DIGITAL DIAGNOSTIC MAMMOGRAM WITH CAD: 05/24/2017 HISTORY: Callback Bilateral / Abnormal Mammogram. RESULT: TECHNIQUE: The study was acquired using full field digital technology and interpreted from soft copy. Current study was also evaluated with a Computer Aided Detection (CAD). Comparison is made to exam dated: 05/16/2017 mammogram - [facility]. The tissue of both breasts is heterogeneously dense. This may lower the sensitivity of mammography. There is an asymmetry in the left breast upper outer aspect middle depth. No other significant masses, calcifications, or other findings are seen in either breast. INCOMPLETE: NEEDS ADDITIONAL IMAGING EVALUATION The asymmetry in the left breast is indeterminate. An ultrasound is recommended. #[id number] - [facility] US BREAST LTD LT ULTRASOUND OF LEFT BREAST: 05/24/2017 RESULT: Comparison is made to exam dated: 05/16/2017 mammogram - [facility]. Ultrasound of the left breast was performed. Morales scale images of the real-time examination were reviewed. There is a benign area of fibrocystic tissue in the left breast upper inner aspect anterior depth. IMPRESSION: PROBABLY BENIGN - SHORT TERM INTERVAL FOLLOW-UP RECOMMENDED - FOLLOW-UP RECOMMENDED The area of fibrocystic tissue in the left breast is benign. A follow-up left mammogram in 6 months is recommended to demonstrate stability. Bruno reilly/alicia:05/24/2017 14:54:35 Head Silverman: Angie PAGAN)(M), [facility] letter sent: # Mo FU OVERALL STUDY BIRADS: 3 Probably benign finding - short term interval follow-up recommended Cotton Roll Packer: Alicia Transcribe Date/Time: May 24 2017 12:47P Dictated by: BRUNO LUCAS DO This examination was interpreted and the report reviewed and electronically signed by: BRUNO LUCAS DO on May 24 2017 2:54PM EST [id number] PROGRESS Observed: 05/24/2017 Status: COMPLETED Source: [place] 12:[address] [facility] REPOSITORY HNO ID: [id number] Author: Ami Rosa Service: (none) Author Type: (none) Type: Progress Notes Filed: 05/24/2017 12:47 PM Note Text: Radiology Service Progress Note PATIENT NAME: Renate Christiansen DATE OF SERVICE: May 24, 2017 TIME: 12:46 PM PATIENT IDENTITY VERIFICATION COMPLETED USING TWO (2) METHODS: Patient confirmed name verbally and Date of . PATIENT GENDER DATA: Female. status: : No status: NO. PATIENT RELEVANT IMPLANT DATA REVIEWED: Not Applicable RADIOLOGY DEPARTMENT: [facility] IV DATA: Not applicable SIGNED BY: Ami Rosa May 24, 2017 12:46 PM [place] ABS GR + CBC Collected: 05/23/2017 Status: F Source: [place] 3:06 PM [facility] REPOSITORY TYPE CODE TESTS RESULT OUT OF REFERENCE UNITS RANGE LAB WWBC 3.70-11.00 k/uL [place] WBC 5.11 LAB WRBC 3.90-5.20 m/uL [place] RBC 4.18 LAB WHGB 11.5-15.5 g/dL [place] Hemoglobin 13.2 LAB WHCT 36.0-46.0 % [place] Hematocrit 39.6 LAB WMCV 80.0-100.0 fL [place] MCV 94.7 LAB WMCH 26.0-34.0 pg [place] MCH 31.6 LAB WMCHC 30.5-36.0 g/dL [place] MCHC 33.3 LAB WRDW 11.5-15.0 % [place] RDW 13.1 LAB WPLT 150-400 k/uL [place] Platelet Cnt 232 LAB WMPV 9.0-12.7 fL [place] MPV 9.0 Result Comment: Test performed at: [facility] [place], [address] [place] [address]. LAB ABGRAN 1.45-7.50 k/uL [place] Gran 3.48 Count CNOV Observed: 05/16/2017 Status: COMPLETED Source: [place] 3:[address] [facility] REPOSITORY Office Visit (WOOB) RENATE CHRISTIANSEN ([id number]) 1955 [facility] Date Time Provider Department 05/16/17 3:00 PM ENEIDA HUERTAS ([place]) WOOB During your visit today, we recorded the following information about you: Blood pressure Weight Height 130/80 86.6 kg 1.549 m ENEIDA HUERTAS CNP 05/16/2017 3:15 PM Signed Renate Christiansen is a 61 year old who presents for her annual gynecologic exam without complaints. Postmenopausal: Yes HRT use: No. Last Pap: none on file History of abnormal pap: Yes Last mammogram: 2017 today History of abnormal mammogram: Yes Sexually active: Yes Pain with intercourse: No Postcoital bleeding: No Hot flashes: No Night sweats: No Vaginal dryness: Yes Obstetric History T0 L2 SAB0 TAB0 Ectopic0 Multiple0 Live Births0 PAST MEDICAL HISTORY Diagnosis Date - Breast cancer (HCC) - Scoliosis PAST SURGICAL HISTORY Procedure Laterality Date - APPENDECTOMY - BREAST BIOPSY Right toxoplasmosis/cyst removal - BREAST LUMPECTOMY HX 02/26/2016 right - CHG DELIVERY x2 - COLONOSCOPY 2013 X2 - PAST SURGICAL HISTORY OF back surgery for scoliosis X2 - PAST SURGICAL HISTORY OF 05/2014 pre cancerous mole removed from back - TUBAL LIGATION HX FAMILY HISTORY Problem Relation Age of Onset - Cancer Maternal Grandfather testicular - Cancer Mother melanoma SOCIAL HISTORY Social History Substance Use Topics - Smoking status: Never Smoker - Smokeless tobacco: Never Used - Alcohol use No REVIEW OF SYSTEMS Abdomen: No abdominal pain, nausea, vomiting, diarrhea, or constipation. No bloating, early satiety, indigestion, or increased flatulence. Bladder: No dysuria, gross hematuria, urinary frequency, urinary urgency, or incontinence Breast: No breast lumps, nipple d/c, overlying skin changes, redness or skin retraction Allergies and current medication updated:Yes EXAM: There were no vitals taken for this visit. GENERAL: pleasant, female in no apparent distress HEENT: Normocephalic, atraumatic, mucus membranes moist and no lesions NECK: Supple, full range of motion, no adenopathy and thyroid normal DERMATOLOGY: Normal, without lesions, non-icteric and non-hirsute BREAST: soft, non-tender, symmetric, no dominant mass, normal nipple-areolar complex, no lymphadenopathy and no nipple discharge CHEST: Normal inspiratory effort ABDOMEN: soft, non-tender and no masses PELVIC: external genitalia normal, normal Bartholin's glands, urethra, [place]'s glands, no vulvar lesions, no cervical lesions, good vaginal support, physiologic discharge present, normal appearing perineal body and perianal region, stenotic os BIMANUAL: uterus normal size, shape and consistency, no adnexal masses, non-tender and no cervical motion tenderness RECTOVAGINAL: deferred. NEURO: alert and oriented x3,exam grossly non-focal EXTREMITIES: normal ASSESSMENT/PLAN: 1) Health maintenance: Pap done with HPV. Mammogram up to date Nutrition, exercise and routine health maintenance exams reviewed. Calcium/Vitamin D supplementation information provided. Colon cancer screening: up to date with screening BMD: up to date 2) Follow up one year or sooner as needed DUKE GUAMAN Psr 05/26/2017 9:57 AM Signed pap logged. letter sent. Adriana Davenport Psr Referring Provider: CAITY COTE (TUMBLING AND ROLLING SUPERVISOR) [[id number]] Allergies As of Date: 05/16/2017 Noted Allergy Reaction AMOXIL (AMOXICILLIN) 02/20/2016 2 - Rash ASPIRIN 02/20/2016 14 - Other: See Comments Comments: Internal bleeding CEPHALOSPORINS 02/20/2016 16 - Unknown CIPROCINONIDE 02/20/2016 16 - Unknown CODEINE 02/20/2016 16 - Unknown DEMEROL (MEPERIDINE (PF)) 02/20/2016 16 - Unknown ERYTHROMYCIN 02/20/2016 16 - Unknown LATEX 03/18/2016 2 - Rash NORCO (HYDROCODONE-ACETAMINOPHEN) 03/04/2016 4 - Hives NUBAIN (NALBUPHINE HCL) 02/20/2016 16 - Unknown PERCOCET (OXYCODONE-ACETAMINOPHEN)03/29/2016 2 - Rash 9 - Itching PREDNISONE 02/20/2016 16 - Unknown Comments: per pt, this was given when had appendicitis and received multiple meds and she developed a rash and they had given her prednisone but at some point it was thought that it wasn't working and maybe it was part of the problem. RYE 02/20/2016 14 - Other: See Comments Comments: Migraine headache SULFA (SULFONAMIDE ANTIBIOTICS) 02/20/2016 14 - Other: See Comments Comments: Fever/Gi upset/listless Date Reviewed: 05/16/2017 Reviewed by: Eneida Garcia) Kiya - Fully Assessed Reason for Visit: Yearly Exam [187] Primary Visit Diagnosis:Encounter for gynecological examination (general) (routine) without abnormal findings [Z01.419] Other Visit Diagnoses:Encounter for screening for malignant neoplasm of cervix [Z12.4] Special screening examination for human papillomavirus (HPV) [Z11.51] Order(s):PAP FLUID CERVICAL SCREENING [1044967] Order #: [id number]. #:[id number] HPV W/GENOTYPE [SQHPVHRR] Order #: [id number]. #:[id number] Prescriptions as of 05/16/2017 Sig: TRAMADOL 50 MG TABLET Take 1 tablet by mouth every * GABAPENTIN 300 MG CAPSULE Take 1 capsule by mouth once * CALCIUM+D ORAL Take 1 tablet by mouth once d* LOSARTAN 50 MG TABLET Take 50 mg by mouth once vivek* ANASTROZOLE 1 MG TABLET Take 1 tablet by mouth once d* LIDOCAINE-PRILOCAINE 2.5 %-2.* Apply to port site 20 min.roxanne* MULTIVITAMIN TABLET Take 1 tablet by mouth once d* DIPHENHYDRAMINE 25 MG TABLET Take 25 mg by mouth twice juan luis* X ONDANSETRON HCL 8 MG TABLET Take 1 tablet by mouth every * Problem List As Of Date 05/16/2017 Noted Resolved Malignant neoplasm of lower-inner quadrant of r*INVALID FOR* Idiopathic scoliosis of lumbar spine [M41.26] INVALID FOR* Lymphedema [I89.0] INVALID FOR* 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 Follow-up and Disposition History Recorded Letter Text [facility] [address] [place] [phone] Renate Christiansen [phone] [place] [id number] 05/26/2017 [facility]: [id number] Dear Renate, We are pleased to inform you that your recent Pap Test was within normal limits. Because Pap tests are so effective in the early detection of cervical cancer, you are encouraged to continue having the test at regular intervals. You will be due for a 1 year Gynecological Exam after this date 05/16/2018. If you have any questions regarding the above information, do not hesitate to call our office at between the hours of 8:00 a.m. and 5:00 p.m. Sincerely, Eneida Huertas [facility] Encounter Status:Closed by ENEIDA HUERTAS on 05/16/17 HPV W/GENOTYPE Collected: 05/16/2017 Status: F Source: [facility] 2:37 PM CLINIC [facility]IN C[facility] REPOSITORY TYPE CODE TESTS RESULT OUT OF REFERENCE UNITS RANGE LAB HPVT16 HPV HighRisk Negative for Type 16 HPV DNA high risk type 16 by PCR. LAB HPVT18 HPV HighRisk Negative for Type 18 HPV DNA high risk type 18 by PCR. LAB HPVHRO HPV HighRisk Negative for Other HPV DNA high risk types: 31,33,35,39,45 ,51,52,56,58,5 9,66,68 by PCR. Result Comment: This test was developed and its performance characteristics determined by [facility]'s [facility] Polanco [facility]ology [facility] [place] [facility] It has not been cleared or approved by the FDA. -[facility] is regulated under CLIA as qualified to perform high-complexity testing. This test is used for clinical purposes. It should not be regarded as inv estigational or for research. Performed By: #### HPVHRR #### [facility] [address] [place], [place] [address] PROGRESS Observed: 05/16/2017 Status: COMPLETED Source: [place] 2:32 PM [facility] REPOSITORY HNO ID: [id number] Author: Eneida Garcia) Kiya Service: (none) Author Type: Nurse Practitioner Type: Progress Notes Filed: 05/16/2017 3:15 PM Note Text: Renate Christiansen is a 61 year old who presents for her annual gynecologic exam without complaints. Postmenopausal: Yes HRT use: No. Last Pap: none on file History of abnormal pap: Yes Last mammogram: 2016 today History of abnormal mammogram: Yes Sexually active: Yes Pain with intercourse: No Postcoital bleeding: No Hot flashes: No Night sweats: No Vaginal dryness: Yes Obstetric History T0 L2 SAB0 TAB0 Ectopic0 Multiple0 Live Births0 PAST MEDICAL HISTORY Diagnosis Date - Breast cancer (HCC) - Scoliosis PAST SURGICAL HISTORY Procedure Laterality Date - APPENDECTOMY - BREAST BIOPSY Right toxoplasmosis/cyst removal - BREAST LUMPECTOMY HX 02/26/2016 right - CHG DELIVERY x2 - COLONOSCOPY 2013 X2 - PAST SURGICAL HISTORY OF back surgery for scoliosis X2 - PAST SURGICAL HISTORY OF 05/2014 pre cancerous mole removed from back - TUBAL LIGATION HX FAMILY HISTORY Problem Relation Age of Onset - Cancer Maternal Grandfather testicular - Cancer Mother melanoma SOCIAL HISTORY Social History Substance Use Topics - Smoking status: Never Smoker - Smokeless tobacco: Never Used - Alcohol use No REVIEW OF SYSTEMS Abdomen: No abdominal pain, nausea, vomiting, diarrhea, or constipation. No bloating, early satiety, indigestion, or increased flatulence. Bladder: No dysuria, gross hematuria, urinary frequency, urinary urgency, or incontinence Breast: No breast lumps, nipple d/c, overlying skin changes, redness or skin retraction Allergies and current medication updated:Yes EXAM: There were no vitals taken for this visit. GENERAL: pleasant, female in no apparent distress HEENT: Normocephalic, atraumatic, mucus membranes moist and no lesions NECK: Supple, full range of motion, no adenopathy and thyroid normal DERMATOLOGY: Normal, without lesions, non-icteric and non-hirsute BREAST: soft, non-tender, symmetric, no dominant mass, normal nipple-areolar complex, no lymphadenopathy and no nipple discharge CHEST: Normal inspiratory effort ABDOMEN: soft, non-tender and no masses PELVIC: external genitalia normal, normal Bartholin's glands, urethra, [place]'s glands, no vulvar lesions, no cervical lesions, good vaginal support, physiologic discharge present, normal appearing perineal body and perianal region, stenotic os BIMANUAL: uterus normal size, shape and consistency, no adnexal masses, non-tender and no cervical motion tenderness RECTOVAGINAL: deferred. NEURO: alert and oriented x3,exam grossly non-focal EXTREMITIES: normal ASSESSMENT/PLAN: 1) Health maintenance: Pap done with HPV. Mammogram up to date Nutrition, exercise and routine health maintenance exams reviewed. Calcium/Vitamin D supplementation information provided. Colon cancer screening: up to date with screening BMD: up to date 2) Follow up one year or sooner as needed ENEIDA HUERTAS CNP ALLERGIES ALLERGIES DATE TYPE / CODE NAME / CODE REACTION SEVERITY SOURCE Drug Cephalosporins/F001 Fever and Unknown [place] 8 Allergy/660287519( 388162(RXNORM) skin rash [facility] Hospital Repository Drug Sulfa (Sulfonamide Fever and Unknown [place] 8 Allergy/081295359( Antibiotics)/B50062 skin rash [facility] SNOMED CT) 0491(RXNORM) Hospital Repository Drug codeine/T826156607( Fever and Unknown [place] 8 Allergy/616864361( RXNORM) skin rash [facility] Rep[facility] Drug aspirin/U343327031( Upset Stomach Unknown [place] 8 Allergy/072639631( RXNORM) [facility] SNOMED CT) Hospital Repository Drug prednisone/Y0495866 Unknown Unknown [place] 8 Allergy/233594973( 64(RXNORM) [facility] SNOMED CT) Hospital Repository Drug erythromycin Fever and Unknown [place] 8 Allergy/524850828( base/H744302187(RXN skin rash [facility]) [place]) Hospital Repository Drug ciprofloxacin/F0060 Fever and Unknown [place] 8 Allergy/067111150( 21290(RXNORM) skin rash [facility] SNOMED CT) Hospital Repository Drug amoxicillin/H067115 Fever and Unknown [place] 8 Allergy/915359711( 675(RXNORM) skin rash [facility] SNOMED CT) Hospital Repository Drug meperidine/H3559737 Upset Stomach Unknown [place] 8 Allergy/433890017( 20(RXNORM) [facility] Repository Drug nalbuphine/O4666756 Fever and Unknown [place] 8 Allergy/589096183( 27(RXNORM) skin rash [facility] SNOMED CT) Hospital Repository Drug latex/J637792950(RX Rash Unknown [place] 8 Allergy/342437239( NORM) [facility] SNOMED CT) Hospital Repository Drug hydrocodone/P081912 hives and Unknown [place] 8 Allergy/578775719( 554(RXNORM) nausea [facility] SNOMED CT) Hospital Repository Drug oxycodone/E98583504 hives and Unknown [place] 8 Allergy/860885028( 8(RXNORM) nausea [facility] SNOMED CT) Hospital Repository Drug acetaminophen/F0060 hives and Unknown [place] 8 Allergy/478107337( 41454(RXNORM) nausea [facility] SNOMED CT) Hospital Repository DRUG NERATINIB HIVES High [place] 8 INGREDI/420273518( [facility] SNOM[facility]) [place] Repository Miscellaneous RYE Other Unknown [place] 6 Allergy/829638068( [facility]) Hospital Repository DRUG/176597556(SNO OXYCODONE-ACETAMINO RASH [place] [address]) PHEN [facility] Main [place] Repository DRUG LATEX RASH [place] 6 INGREDI/587493640( [facility] Main SNOMED CT) [place] Repository DRUG/452317282(SNO HYDROCODONE-ACETAMI HIVES [place] [address]) NOPHEN [facility] [place] Repository DRUG AMOXICILLIN RASH [place] 6 INGREDI/250229598( [facility] SNOMED CT) [place] Repository DRUG ASPIRIN OTHER: SEE C [place] 6 INGREDI/655910212( [facility] SNOMED CT) [place] Repository Drug CEPHALOSPORINS UNKNOWN [place] 6 Class/342617400(SN [facility] OMED CT) [place] Repository DRUG CIPROCINONIDE UNKNOWN [place] 6 INGREDI/053366293( [facility] SNOMED CT) [place] Repository DRUG CODEINE UNKNOWN [place] 6 INGREDI/317057502( [facility] SNOMED CT) [place] Repository DRUG/091704444(SNO MEPERIDINE (PF) UNKNOWN [place] [address] Main [place] Repository DRUG/891249784(SNO ERYTHROMYCIN UNKNOWN [place] [address] [facility] Main [place] Repository DRUG NALBUPHINE HCL UNKNOWN [place] 6 INGREDI/677609443( [facility] SNOMED CT) [place] Repository DRUG PREDNISONE UNKNOWN [place] 6 INGREDI/916346888( [facility] SNOMED CT) [place] Repository Food/119927259(SNO RYE OTHER: SEE C [place] [address] Clinic Main [place] Repository Drug SULFA (SULFONAMIDE OTHER: SEE C [place] 6 Class/037170676(SN ANTIBIOTICS) [facility] OMED CT) [place] Repository ENCOUNTERS ENCOUNTERS ADMIT/DISCHARGE ACCOUNT ADMITTING ENCOUNTER LOCATION SOURCE NUMBER CLASS 05/18/2018/05/22/20 [id number] Ambulatory [address] Main [place] Repository 05/18/2018/05/18/20 [id number] Ambulatory [address] Main [place] Repository 05/09/2018/05/09/20 [id number] Ambulatory BMSBuilding:B [place] 18 [facility] Repository 05/05/2018 [id number] Ambulatory [facility] ing[facility] 11/29/2017/11/30/19 [id number] Ambulatory BMSBuilding:Ravi Russell 18 [place] Repository 11/28/2017/12/01/19 [id number] Ambulatory [address] Main [place] Repository 11/22/2017/11/23/19 [id number] Ambulatory [address] Main [place] Repository 08/31/2017/09/03/19 [id number] Ambulatory [address] Main [place] Repository 08/29/2017 [id number] [facility] Rep[facility] 08/29/2017 [id number] Ambulatory BMSBuilding:W [facility] Repository 08/26/2017/08/31/19 [id number] Ambulatory [address] Main [place] Repository 08/19/2017/08/20/19 [id number] Ambulatory [place] [facility] [place] Repository 08/19/2017 [id number] Ambulatory [place] [facility] [place] Repository 08/19/2017/08/23/19 [id number] Ambulatory [place] 18 [facility] [place] Repository 07/27/2017/07/28/19 [id number] Ambulatory [place] [facility] [place] Repository 07/27/2017/07/27/19 [id number] Ambulatory [place] [facility] [place] Repository 07/27/2017 [id number] [facility] [place] Rep[facility] 07/04/2017/07/06/19 [id number] Ambulatory [place] [facility] [place] Repository 07/04/2017 [id number] Ambulatory [place] [facility] Main [place] Repository 07/04/2017/07/04/19 [id number] Ambulatory [place] 18 [facility] [place] Repository 06/02/2017/06/02/20 [id number] Ambulatory BMSBuilding:Ravi Russell 17 [facility] Repository 05/26/2017 [id number] Ambulatory [facility] Hospital ing:[facility] Repository 05/26/2017 [id number] Ambulatory BMSBuilding:[facility] Repository 05/24/2017/05/25/20 [id number] Ambulatory [facility] Repository 05/24/2017/05/24/20 [id number] Ambulatory [address] Repository 05/24/2017/05/24/20 [id number] Ambulatory [address] Repository 05/23/2017 [id number] Ambulatory [facility] Repository 05/16/2017/05/17/20 [id number] Ambulatory [address] Repository PAYERS PAYERS ENCOUNTER GUARANTOR PAYER SUBSCRIBER SOURCE 05/09/2018 RENATE STANLEY9 Primary Insurance:UMR María Pitts: [place] [address] [place] [id number] [address], Number: [facility] [place] [address]Sda: [id number] Repository Date:4325-20-43GK BOX () [address] [place] [phone]: 05/09/2018 Secondary NOT GIVENUNK [place] Insurance:SELF PAY [facility] Effective Repository Date:2018-05-09 05/05/2018 RENATE STANLEY9 Primary Insurance:UMNayan María Back Hong: [place] [address] [id number], Number: [facility] [place] [address]Bas: [id number] Repository Date:2337-73-39GH BOX () [address] [place] [phone]: 05/05/2018 Secondary NOT GIVENUNK [place] Insurance:SELF PAY [facility]: Effective Repository Date:2017-11-29 11/29/2017 RENTAE STANLEY9 Primary Insurance:UMNayan VegasRavi: [place] [address] [place] [id number] [id number], Number: [facility] [place] [id number]: [id number] Repository Date:5565-89-04JH BOX () [address] [place] [phone]: 11/29/2017 Secondary NOT GIVENUNK [place] Insurance:SELF PAY [facility]: Effective Repository Date:2017-11-29 08/29/2017 RENATE CHRISTIANSEN759 Primary Insurance:UMR María Back Hong: [place] [address] [id number] [id number], Number: Hospital [place] [address]Paj: [id number] Repository [phone] Date:2760-23-17HT BOX -5 (HP) [address] [place] [phone]: 08/29/2017 Secondary NOT GIVENUNK [place] Insurance:SELF PAY [facility] Number: Effective Repository Date:2017-06-02 08/29/2017 RENATE CHRISTIANSEN759 Primary Insurance:UMR María Wong Hong: [place] [address] [id number], Number: Hospital [place] [address]Xgo: [id number] Repository [phone] Date:9159-60-61CB BOX -5 (HP) [address] [place] [phone]: 08/29/2017 Secondary NOT GIVENUNK [place] Insurance:SELF PAY [facility] Number: Effective Repository Date:2017-08-29 06/02/2017 RENATE CHRISTIANSEN759 Primary Insurance:UMNayan Pitts: [place] [address] [id number] [id number], Number: Hospital [place] [address]Red: [id number] Repository [phone] Date:8071-27-10EZ B[address] -[address] (HP) [address] [place] [phone]: 06/02/2017 Secondary NOT GIVENUNK [place] Insurance:SELF PAY [facility] Number: Effective Repository Date:2017-05-07 05/26/2017 María Christiansen759 Primary Insurance:UMR María Pitts: [place] [address] [place] [id number], Number: [place] [address]Aep: [id number] Repository Date:8492-23-12RB BOX () [address] [address]RX: 05/26/2017 Secondary NOT GIVENUNK [place] Insurance:SELF PAY [facility] [place] Number: Effective Repository Date:2016-12-01 05/26/2017 María Christiansen759 Primary Insurance:[facility] María VegasB: [place] [place] [id number] [id number], Number: [facility] [id number]: [id number] Repository Date:3084-61-91UX BOX () [address], [place] [address]XZ: 05/26/2017 Secondary NOT GIVENUNK [place] Insurance:SELF PAY [facility] [place] Number: Effective Repository Date:2017-05-26
== END ==
PROVIDERS: Family Provider Family Medicine; PCP Family Medicine; Referring Provider Internal Medicine Cardiovascular Disease; Visit Provider Internal Medicine Cardiovascular Disease
DX: I42.9 Cardiomyopathy, unspecified (principal); Z51.11 Encounter for antineoplastic chemotherapy; R06.00 Dyspnea, unspecified; R06.02 Shortness of breath
CPT/HCPCS: 0399T; 93306

== ENCOUNTER → 2019-03-22 07:12 | Outpatient (CLI) | payer MEDICARE, OTHER, SELFPAY ==
[2018-05-09 15:30] VITALS: BMI 38.9
--- NOTE | 2019-03-22 | IMM_PTH ---
PATIENT: POONAM CHRISTIANSEN LOC: [facility] U#:[id number] AGE/SX: 69/F ROOM: RE03/22/[address]: Dr. Leeanna Dorado MD : 1955 BED: DIS: SPEC #: [id number] RECD: 03/23/19 13:22 STATUS: IAN REQ #: [id number] JOSE: 03/22/19 00:[address]: Leeanna Dorado DEPT: IMMUNOHISTOCHEMISTRY RECD BY: Anila Baker ENTERED: 03/23/19 13:24 SP TYPE: IMMUNO OTHR DR: Dr. Mitch Mejia MD Tissues: A - Right breast, NOS B - Right breast, NOS Procedures: CK8 (initial) CALPONIN-1 (add) CK5-6 (add) E-CAD (add) ER (add) HER2 ASHOK (add) KI-67 (add) P53 (add) ID (add) P40 (add) PHYSICIAN & INSTITUTION [place] [phone] SPECIMEN INFORMATION: Tissue Source: A - Right breast 1 o'clock, B - Right breast 2 o'clock Clinical Info: Right breast mass x2 Specimen Number: [id number] A & B CPT code: 52258 x2, 17764 x8, 42250 x3 METHODOLOGY: Deparaffinized sections of prefer/formalin-fixed tissue or PAP/DQ stained slides are incubated with monoclonal/polyclonal antibodies/oligonucleotide probes. Localization is made via biotin free immunoperoxidase method. Appropriate controls are performed and reacted as expected. Results on target cell population are indicated in the following table: RESULTS: ANTIBODY / CLONE RESULT Block A P53 (DO-7) positive, >90% Ki-67 (30-9) positive, 12% CK8 (91rukyA25) positive CK5-6 (D5 & 1684) negative Calponin-1 (NP397Y) negative P40 (BC28) negative E-Cad (ECH-6) positive MORPHOMETRIC ANALYSIS ER (clone 6F11) 15%, weak intensity ID (clone 16/1E2) 0% Her-2Neu (clone CB11) 3+ Block B Calponin-1 (DH928L) negative P40 (BC28) negative CK8 (33pqtxK14) positive The prognostic test for HER2 is performed on formalin-fixed paraffin embedded tissue. A 3+ (positive) staining pattern is defined as intense, homogeneous, complete, circumferential membranous staining in >10% of contiguous tumor cells. A similar weak (2+) staining pattern is interpreted as equivocal. DENNIS follow-up testing is recommended for all equivocal cases. Positivity/negativity for ER/ID is reported if > or < 1% of the tumor cells are immuno- reactive, respectively. The ASCO/CAP criteria is used for scoring. Reference: Journal of Clinical Oncology, 2013; 31:2412-3935 & 2010; 16:8623-7233. Duration of fixation: 10.5 Hrs; Sample Adequate: Yes. These assays have not been validated on decalcified tissues. Results should be interpreted with caution given the likelihood of false negativity on decalcified specimens. These tests were developed and their performance characteristics determined by [facility]. They may not have been cleared or approved by the U.S. Food and Drug Administration. The FDA has determined that such clearance or approval is not necessary. The above immunohistochemical/dualISH markers are ordered and reviewed by the Pathologist. INTERPRETATION: A. Right breast 1 o'clock, biopsy: Invasive ductal carcinoma, grade 3/3. Positive for estrogen receptors (favorable prognostic indicator). Negative for progesterone receptors (unfavorable prognostic indicator). Positive for overexpression of LZL8vof. B. Right breast 2 o'clock, biopsy: Invasive ductal carcinoma, grade 2-3/3. AM:rg 03/23/19
--- NOTE | 2019-03-22 | BRBX_PTH ---
PATIENT: POONAM CHRISTIANSEN LOC: [facility] U#:[id number] AGE/SX: 69/F ROOM: RE03/22/[address]: Dr. Leeanna Dorado MD : 1955 BED: DIS: SPEC #: [id number] RECD: 03/22/19 08:47 STATUS: IAN OMA #: [id number] JOSE: 03/22/19 00:[address]: Leeanna Dorado DEPT: SURGICAL PATHOLOGY RECD BY: Lele Chaves ENTERED: 03/22/19 10:46 SP TYPE: BREAST BX OTHR DR: Dr. Mitch Mejia MD Tissues: A - Right breast, NOS B - Right breast, NOS Procedures: Surgery Specimen Level IV HEADER OPERATION: Right breast biopsy PRE-OP DIAGNOSIS: Right breast mass x2 TISSUE SUBMITTED: A - Right breast 1 o'clock +6 FTN, B - Right breast 2 o'clock +7 FTN ISCHEMIC TIME: 30 seconds FIXATION TIME: 10.5 hours MICROSCOPIC DIAGNOSIS A. 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 B. Right breast at 2 o'clock, core biopsy: Invasive ductal carcinoma with the following characteristics: Maximal length - 1.2 mm Nuclear grade - 2-3/3 AM:breann 03/23/19 COMMENT A. ER/PA/Vmc1egu studies are being performed on sections of tumor and the results from this study will be reported separately ([id number]). B. Immunohistochemistry ([id number]) supports the above diagnosis. Case has been reviewed in consultation with Dr. Mancera who concurs with the above diagnosis. IDC:SJ MICROSCOPIC DESCRIPTION Slides are reviewed. GROSS DESCRIPTION A - Received in fixative is one container labeled with the patient's name and designated right breast 1 o'clock +6. The specimen consists of multiple elongated fragments of lewis-yellow fibroadipose tissue that in aggregate measure 2.5 x 1.5 x 0.1 cm. The entire specimen is submitted in one cassette. B - Received in fixative is one container labeled with the patient's name and designated right breast 2 o'clock +7. The specimen consists of multiple elongated fragments of lewis-yellow fibroadipose tissue that in aggregate measure 2 x 2 x 0.1 cm. The entire specimen is submitted in one cassette. / SJ:breann 03/22/19 TC:0 CPT: 70141 x2
--- NOTE | 2019-03-22 07:45 | US_ITS ---
ULTRASOUND GUIDED CORE BIOPSY REASON FOR EXAM: Female, 63 years old. Abnormal mammogram. PERTINENT HISTORY: Right breast masses. COMPARISON: None. TECHNIQUE: (All elements of maximal sterile barrier technique followed, including US elements as applicable) Under direct sonographic guidance, the surgeon performed core biopsies of a 5 mm x 6 mm x 6 mm hypoechoic irregular nodule at the 1:00 position in the breast. IMPRESSION: Ultrasound guided core biopsy of a mass in the RIGHT breast at 1:00 position of the breast without complication. Electronically Signed: Dandre Lacho, at 10:28 EDT , Service support , ULTRASOUND GUIDED CORE BIOPSY REASON FOR EXAM: Female, 63 years old. Suspicious right breast nodule. PERTINENT HISTORY: Suspicious mammogram. COMPARISON: None. TECHNIQUE: (All elements of maximal sterile barrier technique followed, including US elements as applicable) Under direct sonographic guidance, the surgeon performed an ultrasound-guided core biopsy of the 1.1 cm x 1.7 cm x 0.8 cm irregular hypoechoic solid nodule at the 2:00 position of the breast. US/US Breast Biopsy 1st Lesion IMPRESSION: Ultrasound guided core biopsy of a mass in the RIGHT breast at 2:00 position of the breast without complication. Electronically Signed: Dandre Monk, at 10:29 EDT , Service support ,
--- NOTE | 2019-03-22 08:17 | PCM.OPRPT ---
Report of Operation Date of Procedure: 03/22/19 Pre-Operative Diagnosis: abnormal lesions (x2) seen on right breast ultrasound, history of right breast cancer Post-Operative Diagnosis: same Surgery/Procedure Performed:: US guided right breast needle core biopsies x 2 Description of Surgical Findings:: two abnormal lesions seen by US of right breast - 1:00 at 6 cm and 2:00 at 7 cm Type of Anesthesia:: Local - 1% xylocaine Specimen's removed: right breast tissue from two locations (1:00 at 6 cm and 2:00 at 7 cm) Estimated Blood Loss (mL): minimal Fluids Replaced: none Description of Procedure: After informed consent was given, the patient was brought to the ultrasound suite. Appropriate time out protocol was followed. She was then placed in the supine position. Using the ultrasound transducer, the suspicious lesions were localized and then marked with a marking pen on the patient?s right breast. The skin at where the biopsy stylus would be entering into the patient?s breast was then cleansed with a skin cleansing preparation solution and the skin and subcutaneous tissues at the biopsy site were infiltrated with 1% xylocaine. The 1:00 lesion at 6 cm was approached first. A small skin incision was made with an 11 blade scalpel. Holding the transducer in my left hand, I guided the biopsy stylus to just beneath the lesion under direct ultrasound guidance. The biopsy trough was then opened and noted under ultrasound guidance, such that it was ensured that the lesion was able to be biopsied. Several core samples of breast tissue were then obtained and this was visualized under ultrasound guidance. A marker clip was then placed into the patient?s breast at the biopsy site and this was visualized under ultrasound guidance. Hemostasis was achieved using pressure. The skin incision was then reapproximated using steristrips and a sterile dressing was applied. The 2:00 lesion at 7 cm was approached next. A small skin incision was made with an 11 blade scalpel. Holding the transducer in my left hand, I guided the biopsy stylus to just beneath the lesion under direct ultrasound guidance. The biopsy trough was then opened and noted under ultrasound guidance, such that it was ensured that the lesion was able to be biopsied. Several core samples of breast tissue were then obtained and this was visualized under ultrasound guidance. A different marker clip was then placed into the patient?s breast at the biopsy site and this was visualized under ultrasound guidance. Hemostasis was achieved using pressure. The skin incision was then reapproximated using steristrips and a sterile dressing was applied. The patient tolerated the procedure well. She was discharged from the radiology suite in stable condition. - Complications none noted
--- NOTE | 2019-03-22 08:23 | NURSING ---
Dr. Dorado finished biopsies and pressure held. Nurse finished holding pressure and steri strips and dressing applied, pt reinstructed in care of breast and need for supportive bra. Pt aware of s/s of infection and bleeding and when to call the doctor. voiced understanding
== END ==
PROVIDERS: Family Provider Family Medicine; PCP Family Medicine; Referring Provider Surgery; Visit Provider Surgery
DX: D05.11 Intraductal carcinoma in situ of right breast (principal); R92.8 Other abnormal and inconclusive findings on diagnostic imaging of breast; Z85.3 Personal history of malignant neoplasm of breast
CPT/HCPCS: 19083; 19084; 88305; 88341; 88342

== ENCOUNTER 2019-04-03 08:00 | Observation (INO) | payer OTHER, MEDICARE, SELFPAY ==
[2018-05-09 15:30] VITALS: BMI 38.9
--- NOTE | 2019-03-29 18:59 | HP.PCM_ITS ---
History and Physical Date of Admission: 04/02/19 Renate Jacobson 1955 ? ? REFERRING PHYSICIAN: Caity Cote APRN.* ? CHIEF COMPLAINT: Recurrent right breast cancer ? HPI: The patient is a 63 year old female presents with complaint of episode of right breast pain. Pain has since resolved, however, she is noted to have an abnormal right breast ultrasound lesion x 2. She has a history of right breast cancer, s/p lumpectomy/XRT in 2016 Had noted swelling and erythema of right breast and patient points to upper inner quadrant about two weeks ago. This resolved but then patient noted nodular tissue in the area. Patient denies taking any antibiotics. Denies fevers Patient has history of right breast lumpectomy followed by radiation therapy in Feb 2016 for right breast cancer - T2, N0, positive lymphovascular invasion, ER pos, OH neg, Her2 positive. 03/07/19 US findings: 0.9 cm sized lesion at 1:00 6 cm from nipple anterior dept h, 2 cm sized lesion at 2:00 7 cm from nipple anterior depth (mammograms revealed no suspicious lesions) ? US guided needle core bipsy 03/22/19 Right breast at 1 o?clock, core biopsy: Invasive ductal carcinoma with the following characteristics: Maximal length ? 10 mm Nuclear grade ? 3/3 Other findings ? ductal carcinoma in situ, nuclear 3/3 with focal comedo necrosis. Right breast at 2 o?clock, core biopsy: Invasive ductal carcinoma with the following characteristics: Maximal length ? 1.2 mm Nuclear grade ? 2-3/3 ? Patient and her present for discussion. ? ? PAST MEDICAL HISTORY ? Breast cancer (HCC) ? ? Scoliosis ? ? PAST SURGICAL HISTORY ? APPENDECTOMY ? ? ? BREAST BIOPSY Right ? ? toxoplasmosis/cyst removal ? BREAST LUMPECTOMY HX ? 02/26/2016 ? right ? CHG DELIVERY ? ? ? x2 ? COLONOSCOPY ? 2013 ? X2 ? PAST SURGICAL HISTORY OF ? ? ? back surgery for scoliosis X2 ? PAST SURGICAL HISTORY OF ? 05/2014 ? pre cancerous mole removed from back ? TUBAL LIGATION HX ? Current Outpatient Medications: anastrozole (ARIMIDEX) 1 mg tablet Take 1 tablet by mouth once daily. gabapentin (NEURONTIN) 300 mg capsule Take 1 capsule by mouth once daily. losartan (COZAAR) 50 mg tablet Take 50 mg by mouth once daily. multivitamin tablet Take 1 tablet by mouth once daily. diphenhydrAMINE (BENADRYL ALLERGY) 25 mg tablet Take 25 mg by mouth twice daily as needed. ? ? ALLERGIES: Neratinib; Amoxil [Amoxicillin]; Aspirin; Cephalosporins; Ciprocinonide; Codeine; Demerol [Meperidine (Pf)]; Erythromycin; Latex; Mason [Hydrocodone-Acetaminophen]; Nubain [Nalbuphine Hcl]; Percocet [Oxycodone- Acetaminophen]; Prednisone; [place]; Sulfa (Sulfonamide Antibiotics) ? PERSONAL HISTORY: Social History Socioeconomic History Marital status: Spouse name: Jose Number of children: 2 Years of education: 14 Highest education level: Not on file Occupational History Occupation: retired Tobacco Use Smoking status: Never Smoker Smokeless tobacco: Never Used Substance and Sexual Activity Alcohol use: No Drug use: No Sexual activity: Yes Partners: Male control/protection: Tubal Ligation ? FAMILY HISTORY ? Cancer Maternal Grandfather ?? testicular ? Cancer Mother ?? melanoma ? ? REVIEW OF SYSTEMS: (obtained by nursing staff and reviewed by me) General: The patient denies fatigue, denies weight loss, denies weight gain, denies feeling hot, and denies feelings of cold. Eyes: The patient denies glaucoma, denies eye injury/surgery, wears glasses or contacts. Ear/Nose/Throat: The patient denies allergies, denies hayfever, denies ear infections, and denies bloody noses. Cardiovascular: The patient denies chest pain, denies heart disease, NOTES high blood pressure,denies cardiac stent, denies prior heart attack, denies irregular heart beat, denies high cholesterol, denies poor circulation, denies heart failure, other cardiac issues, denies claudication, denies cold feet, denies peripheral arterial stent. Respiratory: The patient denies tuberculosis, denies pneumonia, denies frequent cough, denies pulmonary embolism, denies shortness of breath, and denies coughing up blood. Gastrointestinal: The patient denies difficulty swallowing, denies acid reflux, denies ulcers, denies vomiting, denies jaundice/hepatitis, denies gallbladder problems, denies black or tarry stools, denies hemorrhoids, denies bleeding from rectum, NOTES diverticulitis, denies constipation, denies diarrhea, denies loss of stool control, and denies hernias. Kidney/Bladder: The patient denies kidney stones, denies urine infections, and denies bloody urine. Skin: The patient denies a history of skin cancer, denies bleeding/changing moles, and denies a history of skin rash. Neurologic: The patient denies a history of epilepsy/convulsions, denies headaches, denies head/spinal injuries, and denies stroke/TIA. Psychiatric: The patient denies psychiatric medications, denies depression, and denies voices, denies substance abuse. Endocrine: The patient denies thyroid disorders, denies diabetes, and denies hormonal problems. Hematologic: The patient denies a history of bruising, denies bleeding, and denies anemia, denies blood clots. Infections: The patient NOTES a history of measles and mumps, denies rheumatic fever, and denies sexually transmitted diseases. Musculoskeletal: The patient NOTES back pain/injury, NOTES back problems, denies sciatica, NOTES knee/foot trouble, denies arthritis, or denies gout. ? PHYSICAL EXAMINATION: General: The patient is 63 year old female, well nourished, well hydrated in no acute distress. The patient is oriented to time, place, and person. VITALS: Blood pressure 124/84, pulse 90, temperature 36.6 ?C (97.8 ?F), weight 73.6 kg (162 lb 3.2 oz), SpO2 98 %. Body mass index is 30.65 kg/m?. Head ? Normocephalic. EOM intact with sclera clear and no icterus noted. Mouth with mucus membranes moist. Neck - supple with no jugular venous distention noted. Trachea is midline. No carotid bruits noted. No thyroid enlargement or thyroid nodules detected. No masses noted. Chest/breast ? no asymmetry of breasts noted, no suspicious skin lesions noted, no nipple discharge and both nipples everted, dense breast tissue of upper inner quadrant of right breast with no discrete masses palpated Lungs ? clear to auscultation. Normal breath sounds. No rales/rhonchi/wheezing noted. No labored breathing noted, such as retractions. No cough heard. Heart ? normal S1 and S2 auscultated. No rubs/clicks/murmurs noted. Regular rate. Abdomen ? soft and benign. Normal bowel sounds. No abdominal bruits noted. No distention noted. Extremities ? no calf tenderness noted. No pitting edema noted. d. Skin ? normal skin integrity. Lymph ? no cervical adenopathy detected, no supraclavicular adenopathy detected, no axillary adenopathy detected Neurological ? gait normal, no focal deficits noted. Psych ? calm and appropriate RADIOLOGIC STUDIES: As Noted ? ? IMPRESSION: history of right breast cancer s/p lumpectomy and XRT, new findings of multifocal cancer by needle core biopsy of right breast ? PLAN: I have discussed the above with the patient and her who is present with her. I have recommended mastectomy with or without lymph node dissection. I told the patient that if I find any palpable lymph nodes, I would send them off for pathology and if positive - I would proceed with axillary lymphadenectomy. I have explained the procedure to the patient. I have counseled the patient as to the risks of the procedure, including but not limited to: infection, bleeding, injury to any blood vessels/nerves, injury to the long thoracic/thoracodorsal/second intercostal brachial nerves and their sequelae (if axillary lymph node dissection is done) scar tissue, lymph leak, persistent seroma, wound infections, complications of anesthesia, etc. ? the p atient understands. The patient wishes to proceed. I have answered all questions to the patient?s satisfaction and the patient has no further questions. .
--- NOTE | 2019-03-30 14:15 | EKG12_ITS ---
Test Reason : PREOP Blood Pressure : / mmHG Vent. Rate : 082 BPM Atrial Rate : 067 BPM P-R Int : 178 ms QRS Dur : 086 ms QT Int : 402 ms P-R-T Axes : 023 -47 034 degrees QTc Int : 469 ms Sinus rhythm with occasional Premature ventricular complexes and Possible Premature atrial complexes with Aberrant conduction Left axis deviation Inferior infarct , age undetermined Abnormal ECG Confirmed by ALEXIA RG, SHANNON ([id number]), editor dictionary CHEY CHOWDHURY ([id number]) on 04/02/2019 10:44:31 AM Referred By: Leeanna Dorado Confirmed By:SHANNON HALE MD
[2019-04-02] VITALS (8 sets, daily range): BP systolic 116–147; BP diastolic 59–78; PULSE 65–89; RESP 16–18; TEMP 36.6–36.9; O2SAT 95–100
[2019-04-02] MEDS: Lactated Ringers 1,000 ML 100 ML IV ×2 (12:38→16:59)
--- NOTE | 2019-04-02 13:05 | BREAST_PTH ---
PATIENT: POONAM CHRISTIANSEN LOC: [facility]3 U#:[id number] AGE/SX: 63/F ROOM: MS306 RE04/03/[address]: Dr. Leeanna Dorado MD : 1955 BED: 1 DIS: 04/03/2019 SPEC #: [id number] RECD: 04/02/19 15:48 STATUS: IAN REQ #: [id number] JOSE: 04/02/19 13:[address]: Leeanna Dorado DEPT: SURGICAL PATHOLOGY RECD BY: Lele Chaves ENTERED: 04/03/19 07:57 SP TYPE: BREAST OTHR DR: Dr. Mitch Mejia MD Tissues: Right breast, NOS Procedures: Surgery Specimen Level V HEADER OPERATION: Radical modified breast mastectomy PRE-OP DIAGNOSIS: Invasive ductal carcinoma right breast TISSUE SUBMITTED: Right breast, two short sutures - axillary tail, double tie - site of cancer MICROSCOPIC DIAGNOSIS Right breast, modified radical mastectomy: Invasive ductal carcinoma x2. Ductal carcinoma in situ. Five out of five lymph nodes, negative for metastatic carcinoma. Hyalinized fibroadenomas x2. See cancer summary below. SJ:breann 04/05/19 INVASIVE BREAST CANCER SUMMARY: Specimen - total breast (including nipple and skin). Procedure - total mastectomy (including nipple and skin). Lymph node sampling - axillary dissection Specimen integrity - single, intact specimen Specimen laterality - right Tumor site - inner quadrant Tumor size: size of largest invasive carcinoma - 3.5 x 1.5 x 1.5 cm Tumor focality - two foci of invasive carcinoma Size of individual foci - 3.5 x 1.5 x 1.5 cm and 2 x 2 x 1 cm Macroscopic and Microscopic extent of tumor: Skin - invasive carcinoma does not invade into the dermis or epidermis. Nipple - DCIS does not involve nipple epidermis. Skeletal muscle - Skeletal muscle is present and is free of carcinoma. Ductal carcinoma in situ (DCIS) - present Extensive intraductal component (EIC) - negative Estimated size (extent) of DCIS - DCIS is present in the area of invasive carcinoma and comprise about 5% of the total tumor volume. Number of blocks with DCIS - 7 Number of blocks examined (breast tissue) - 16 Architectural patterns - cribriform and comedo Nuclear grade - grade 3 (high) Necrosis - present, central (expansive comedo necrosis) Lobular carcinoma in situ (LCIS) - not identified Histologic type of invasive carcinoma - invasive ductal carcinoma (no special type) Histologic Grade (Yohan grade): Glandular/tubular differentiation - score 3 Nuclear pleomorphism - score 3 Mitotic count - score 2 Overall grade - 3 (score of 8) Both tumor show similar morphologic features. Margins - larger focus of invasive carcinoma is present at the closest posterior margin of the specimen. - smaller focus of invasive carcinoma is 1.7 cm away from closest superior margin. - Margins are free of ductal carcinoma in situ. Treatment effect: Response to presurgical (neoadjuvant) therapy - no known presurgical therapy. Lymph-Vascular invasion - not identified Dermal lymph-vascular invasion - not identified Lymph nodes: Number of sentinel lymph nodes examined - 0 Total number of lymph nodes examined (sentinel and nonsentinel) - 5 Number of lymph nodes with macrometastases, micrometastases and isolated tumor cells - 0 Distant metastasis - not applicable Additional pathologic findings - hyalinized fibroadenomas x2 with focal calcifications. See comment. - Dense fibrosis and lobular involution. Ancillary studies - previously performed on section of tumor ([id number] / [id number]). ER - positive (15%, weak intensity) SD - negative (0%) Her2 krista - positive (3+) Microcalcifications - present in both invasive carcinoma and non-neoplastic tissue. Clinical history - Please make reference to previous specimen ([id number]) right breast at 1 o'clock and right breast at 2 o'clock core biopsies with diagnosis of invasive ductal carcinoma. PATHOLOGIC STAGE: pT2(m) pN0 Mx The above summary is in compliance with [employer] [employer] (CAP) Cancer Protocols Checklist and [place] [employer] Committee on Cancer (AJCC), Staging Manual, 8th Ed. COMMENT The fibroadenomas measure 0.5 and 1 cm in greatest dimension. This case is discussed with Dr. Dorado on 04/05/19. Case has been reviewed in consultation with Dr. Hood who concurs with the above diagnosis. IDC:AM MICROSCOPIC DESCRIPTION Slides are reviewed. GROSS DESCRIPTION Received in fixative is one container labeled with the patient's name and designated right breast. Received is a modified radical mastectomy specimen consisting of breast tissue and axillary tail measuring 21.5 x 18 x 5.2 cm. The anterior surface contains an ellipse of pink-lewis skin measuring 19 x 8 cm. The central located nipple is grossly unremarkable. The axillary soft tissue measures 6.2 x 5.5 x 2 cm. The posterior surface of the specimen contains fragments of muscle measuring 4 x 3 x 0.6 cm. The specimen is differentially inked as follows: posterior - black, superior - blue and inferior - green. The most distal portions of the axillary tail are inked in red ink. / AM:rg 04/03/19 The skin does not contain lesions. The nipple and areola is grossly unremarkable. Serial sections reveal two firm lesions. One larger lesion measures 3.5 x 1.5 x 1.5 cm and is C-shaped. This lesion appears to extend to the posterior margin of excision. Located approximately 1 cm medial to this is a second firm, lewis-white smaller lesion measuring 2 x 2 x 1 cm. The second lesion is located 1.7 cm from its closest (superior) margin of excision. The remainder of the breast parenchyma is lewis-white, fatty and interrupted occasionally by dense white fibrous streaks. No other mass lesions are identified. Dissection of the axillary fat tail reveals a number of nodules resembling lymph nodes. Supervisor [employer] sections are submitted as follows: 1 - nipple, 2 - perpendicular superior and inferior margins, 3?-?perpendicular medial margin, 4 - perpendicular lateral margin, 5-8 - larger mass, lateral, 9-12 - smaller mass, medial, 1316??sales and service representative sections of uninvolved breast parenchyma away from lesions, 17 - three nodules, 18??three nodules. / AM:rg 04/04/19 TC:0 CPT: 60198
[2019-04-02] MEDS: Bupivacaine 0.25%-Epi/Pf 1:200,000 OPERA.SITE (16:00)
--- NOTE | 2019-04-02 16:39 | OP.PCM_ITS ---
Report of Operation Date of Procedure: 04/02/19 Pre-Operative Diagnosis: recurrent right breast cancer Post-Operative Diagnosis: recurrent right breast cancer Surgery/Procedure Performed:: right modified mastectomy Description of Surgical Findings:: palpable lymph nodes of the right axilla, dense adherent tissue to pectoralis muscle and part of muscle in this area also removed career and guidance counselor: Keyona Slater Type of Anesthesia:: General Anesthesiologist: Amanda Velazquez Specimen's removed: right breast and axillary contents Drains: 10 Fr passive in mastectomy bed and right axilla Estimated Blood Loss (mL): 50 Fluids Replaced: 1700 ml RL Description of Procedure: After informed consent was given the patient was brought to the OR. Appropriate time out protocol was followed. She was then placed in the supine position on the operating room table. She was then placed under general anesthesia. The patient's right chest and neck area was then prepped with a sterile surgical skin preparation and appropriate sterile surgical drapes were placed. A skin incision was made to include the periareolar tissues as well as additional incisions made to encompass the original biopsy incisions. The skin incision was made with a 10 blade scalpel and carried through to the subcutaneous tissues using electrocautery. Any hemorrhage was controlled with electrocautery. The medial and superior skin flap was created by the subcutaneous fat from the breast tissue using electrocautery. Any bleeding vessels were controlled with electrocautery. Larger vessels were ligated with vicryl suture. Dissection then continued to the level of the right lateral sternal border. The superior level of dissection was carried down to the clavipectoral fascia. The inferior skin flap was developed in the same fashion and the breast tissue was to its inferior border from the subcutaneous fat. The entire breast tissue and the pectoralis fascia were then from the pectoralis muscles starting medially and continuing laterally. Of note, there was an especially adherent dense tissue area for which a small portion of pectoralis muscle was also removed en renetta with the breast specimen. The dissection included the interpectoral xiao tissue. Once dissection was achieved to the lateral aspect of the breast, then the inferior portion of the lateral tissue was transected leaving the breast tissue connected only by the superior lateral tissue (tail of Kaur) of the breast. Blunt dissection was then conducted into the axillary fossa to palpate out any axillary lymph nodes. There were palpable axillary lymph nodes in this area. Therefore this axillary lymph tissue was then taken en renetta with the right breast. Hemostasis of the area of dissection was then achieved with electrocoagulation. The mastectomy bed was vigorously irrigated with sterile water and all irrigation solution was removed. A 10 Fr drain was placed in the axilla and another was placed along the mastectomy bed and these drains were brought out through separate skin incisions and sutured to the skin using nylon suture. The superior and inferior skin flaps were then approximated together using interrupted vicryl suture along the dermis of the skin edges. The skin incision was then reapproximated with 4- 0 monocryl in a running subcuticular fashion. Cavilon and steristrips were then placed to reinforce the skin closure and proper sterile dressings were applied. Patient was brought to the Recovery Room in stable condition - Complications none noted - Admit VTE Documentation VTE Present on Admission: Yes VTE Mechan Device Prophylaxis: SCD's
[2019-04-02] MEDS: Gabapentin 300 MG Capsule PO (21:12)
[2019-04-02] MEDS: Anastrozole 1 MG Tablet PO (21:12)
[2019-04-03] MEDS: Lactated Ringers 1,000 ML 100 ML IV (02:06)
[2019-04-03 03:38] VITALS: BP 96/52; PULSE 70; RESP 16; TEMP 37.2; O2SAT 95
--- NOTE | 2019-04-03 07:32 | PCM.DC.BS ---
Discharge Diet: No Restrictions Discharge Activity: Return to Normal Activity Lifting Restrictions: no lifting greater than 10 pounds with right arm Call your doctor if your incision/area has: Continuous Slow Oozing, Foul Smelling Discharge Call your doctor if you observe: Fever of 101 or Higher Additional Dressing/Incision Instructions:: Leave dressing in place. Empty TORITO drains as instructed Allergies/Adverse Reactions: Allergies acetaminophen [From Percocet] Allergy (Verified 03/29/19 16:23) hives and nausea amoxicillin Allergy (Verified 03/29/19 16:23) Fever and skin rash Cephalosporins Allergy (Verified 03/29/19 16:23) Fever and skin rash ciprofloxacin [From Cipro] Allergy (Verified 03/29/19 16:23) Fever and skin rash codeine Allergy (Verified 03/29/19 16:23) Fever and skin rash erythromycin base Allergy (Verified 03/29/19 16:23) Fever and skin rash hydrocodone [From [place]] Allergy (Verified 03/29/19 16:23) hives and nausea latex Allergy (Verified 03/29/19 16:23) Rash nalbuphine [From Nubain] Allergy (Verified 03/29/19 16:23) Fever and skin rash oxycodone [From Percocet] Allergy (Verified 03/29/19 16:23) hives and nausea prednisone Allergy (Verified 04/02/19 18:06) hives with blood underneath Sulfa (Sulfonamide Antibiotics) Allergy (Verified 03/29/19 16:23) Fever and skin rash aspirin Adverse Reaction (Verified 04/02/19 20:04) stomach bleed AND DARK STOOL meperidine [From Demerol] Adverse Reaction (Verified 04/02/19 20:04) Upset Stomach RYE Allergy (Uncoded 04/02/19 18:06) MIGRAINE LOONEY Medications to take at Discharge anastrozole 1 mg tablet 1 mg PO QHS 05/31/17 gabapentin 100 mg capsule 300 mg PO QHS 05/31/17 DiphenhydrAMINE [Benadryl] 25 mg PO Q8H PRN PRN 03/29/19 Losartan Potassium [Cozaar] 50 mg PO QDAY 03/29/19 Multivitamin [Multiple Vitamins] 1 ea PO DAILY 03/29/19 Naproxen Sodium [Aleve] 220 mg PO Q8H PRN PRN 03/29/19 Doxycycline 100 mg PO BID 10 Days #20 cap 04/03/19 traMADol [Ultram (G)] 50 mg PO Q6H PRN PRN 5 Days #10 tab 04/03/19 The following prescriptions were given: Doxycycline 100 mg PO BID 10 Days #20 cap Prescription Printed traMADol [Ultram (G)] 50 mg PO Q6H PRN PRN 5 Days #10 tab PRN Reason: Pain Or Fever Prescription Printed Orders to be completed after discharge: 12 Lead EKG [[facility]] Time Frame: 03/29/19, Facility: [facility], Location: Cardiovascular Services Primary Care Physician: Mitch Mejia MD [Primary Care Provider] - Please Follow Up With: Leeanna Dorado MD - call When: to be seen on Apr 05, please call for time
--- NOTE | 2019-04-03 07:33 | PN.SURG_ITS ---
Subjective: patient has surprisingly required minimal pain medications feels overall well - Physical Exam Vitals/I&O's: Vital Signs Temp Pulse Resp BP Pulse Ox 98.9 F 70 16 96/52 L 95 04/03/19 03:38 04/03/19 03:38 04/03/19 03:38 04/03/19 03:38 04/03/19 03:38 Oxygen Delivery Method Room Air Weight: 72.1 kg Body Mass Index (BMI) 30.0 Intake and Output for Last 24 Hours 04/01/19 04/02/19 04/03/19 23:59 23:59 23:59 Intake Total 1843.34 / 2143.34 828.33 / 828.33 Output Total 0 1455 / 1455 Balance 1843.34 / 1463.34 -626.67 / -626.67 General: Alert, Oriented x3 Oral: Moist Mucosa Neck: Supple Lungs: Normal air movement Skin: - - Dressings intact, no erythema or swelling noted surrounding TORITO output is serosanguinous Current Medications Anastrozole (Arimidex) 1 mg PO QHS [facility] Last Admin: 04/02/19 21:12 Dose: 1 mg Documented by: Diphenhydramine HCl (Benadryl) 25 mg PO Q8H PRN PRN PRN Reason: itchy Gabapentin (Neurontin) 300 mg PO QHS [facility] Last Admin: 04/02/19 21:12 Dose: 300 mg Documented by: Lactated Ringer's () 1,000 mls @ 100 mls/hr IV .Q10H [facility] Last Admin: 04/03/19 02:06 Dose: 100 mls/hr Documented by: Clindamycin Phosphate 600 mg/ (Dextrose) 54 mls @ 100 mls/hr IV Q8 [facility] Last Admin: 04/03/19 07:21 Dose: 100 mls/hr Documented by: Losartan Potassium (Cozaar) 50 mg PO DAILY [facility] Naproxen (Naprosyn) 375 mg PO BID PRN PRN PRN Reason: Pain or Fever Tramadol HCl (Ultram) 50 mg PO Q6H PRN PRN PRN Reason: Pain Score 4-10/10 Medical Necessity - Tobacco Use Smoking Status: Never smoker Tobacco Use: Non-smoker Assessment/Plan POD#1 right [facility] Plan: Follow up with me on D/C to home today
[2019-04-03 10:00] VITALS: BP 118/59; PULSE 63; RESP 14; TEMP 36.8; O2SAT 93
== END 2019-04-03 10:21 | disposition home or self-care (01) ==
LOC: SDC 08:19
PROVIDERS: Admitting Provider Surgery; Family Provider Family Medicine; PCP Family Medicine; Referring Provider Surgery; Visit Provider Surgery
PROC: (CPT 19307; principal; 2019-04-02 12:50)
DX: C50.911 Malignant neoplasm of unspecified site of right female breast (principal); Z86.718 Personal history of other venous thrombosis and embolism; M41.9 Scoliosis, unspecified; R59.9 Enlarged lymph nodes, unspecified; I10 Essential (primary) hypertension; I42.9 Cardiomyopathy, unspecified; R94.31 Abnormal electrocardiogram [ECG] [EKG]; Z79.899 Other long term (current) drug therapy
CPT/HCPCS: 19307; 88307; 93005; 96361; 96365; 96366; 99218; J7120; G0378; G0379; J2405; J3490; Q9968

== ENCOUNTER → 2019-04-25 12:43 | Outpatient (CLI) | payer OTHER, SELFPAY ==
--- NOTE | 2019-04-25 12:46 | ECHODONC_ITS ---
Reason For Study: CHEMO/ BREAST CANCER Procedure This was a 2D Doppler, Color Flow transthoracic echocardiogram. Myocardial strain analysis was performed in this exam to aid in the assessment of cardiac function. Exam performed in department. Left Ventricle Normal LV size. Left ventricular systolic function is lower limits of normal. The estimated ejection fraction is 53 %. Stage 1 diastolic dysfunction. No regional wall motion abnormalities noted. Right Ventricle Normal RV size. Normal systolic function. Atria Normal left atrium. Normal right atrium. Mitral Valve Normal mitral valve. Tricuspid Valve Normal tricuspid valve. Aortic Valve Normal aortic valve. Pulmonic Valve Normal pulmonic valve. Great Vessels Normal aortic root. The pulmonary artery is normal size. Normal inferior vena cava. Pericardium/Pleural No pericardial effusion. MMode/2D Measurements & Calculations LVIDd: 4.2 cm IVSd: 0.80 cm Ao root diam: 3.6 cm LVIDs: 3.3 cm LVPWd: 0.85 cm RVDd: 2.4 cm FS: 22.8 % LAV(MOD-bp): 43.2 ml LA A4 area: 15.6 cm2 LA dimension(2D): 3.8 cm LAV(MOD-bp) Indexed: 25.4 ml/m2 LAV(MOD-sp2): 43.4 ml LAV(MOD-sp4): 39.4 ml RA A4 area: 13.0 cm2 Time Measurements MV dec time: 0.20 sec Doppler Measurements & Calculations MV E max deion: 72.1 cm/sec Lat Peak E' Deion: 8.4 cm/sec Med Peak E' Deion: 5.2 cm/sec MV A max deion: 106.2 cm/sec E/E' lat: 8.6 E/E' med: 14.0 MV E/A: 0.68 Ao V2 max: 109.6 cm/sec LV V1 max: 85.5 cm/sec PA V2 max: 81.7 cm/sec Ao max P.8 mmHg LV V1 max P.9 mmHg PI end-d deion: 105.2 cm/sec TR max deion: 260.1 cm/sec TR max P.3 mmHg Interpretation Summary Left ventricular systolic function is lower limits of normal. Normal LV size. The estimated ejection fraction is 53 %. Stage 1 diastolic dysfunction. overall GLS essentially unchanged. The global longitudinal strain = -17.8 % (normal). The prior global longitudinal strain was -19 % . Ordering Physician: Rip Rivers Referring Physician: ARMANDO FONTANEZ Performed By: Pilar Villeda, RDCS, RVT
== END ==
PROVIDERS: Family Provider Family Medicine; PCP Family Medicine; Referring Provider Internal Medicine Hematology & Oncology; Visit Provider Internal Medicine Hematology & Oncology
DX: I42.7 Cardiomyopathy due to drug and external agent (principal); T45.1X5A Adverse effect of antineoplastic and immunosuppressive drugs, initial encounter; C78.00 Secondary malignant neoplasm of unspecified lung; C50.311 Malignant neoplasm of lower-inner quadrant of right female breast; Z17.0 Estrogen receptor positive status [ER+]
CPT/HCPCS: 0399T; 93306

== ENCOUNTER 2019-05-07 11:49 | Day surgery (SDC) | payer OTHER, SELFPAY ==
--- NOTE | 2019-05-06 11:48 | PCM.HP.BLA ---
History and Physical Date of Admission: 05/07/19 Renate Jacobson 1955 ? ? REFERRING PHYSICIAN: Caity Cote APRN.* ? CHIEF COMPLAINT: Metastatic right breast cancer ? HPI: Renate presents s/p right MRM with recurrent seroma. Also found to have metastatic breast cancer. Plan is for palliative chemotherapy. She will require portacath for IV access. ?? ? PAST MEDICAL HISTORY ? Breast cancer (HCC) ? ? Scoliosis ? ? PAST SURGICAL HISTORY ? APPENDECTOMY ? ? ? BREAST BIOPSY Right ? ? toxoplasmosis/cyst removal ? BREAST LUMPECTOMY HX ? 02/26/2016 ? right ? CHG DELIVERY ? ? ? x2 ? COLONOSCOPY ? 2014 ? X2 ? PAST SURGICAL HISTORY OF ? ? ? back surgery for scoliosis X2 ? PAST SURGICAL HISTORY OF ? 05/2014 ? pre cancerous mole removed from back ? TUBAL LIGATION HX ? Current Outpatient Medications: anastrozole (ARIMIDEX) 1 mg tablet Take 1 tablet by mouth once daily. gabapentin (NEURONTIN) 300 mg capsule Take 1 capsule by mouth once daily. losartan (COZAAR) 50 mg tablet Take 50 mg by mouth once daily. multivitamin tablet Take 1 tablet by mouth once daily. diphenhydrAMINE (BENADRYL ALLERGY) 25 mg tablet Take 25 mg by mouth twice daily as needed. ? ? ALLERGIES: Neratinib; Amoxil [Amoxicillin]; Aspirin; Cephalosporins; Ciprocinonide; Codeine; Demerol [Meperidine (Pf)]; Erythromycin; Latex; [place] [Hydrocodone-Acetaminophen]; Nubain [Nalbuphine Hcl]; Percocet [Oxycodone-Acetaminophen]; Prednisone; [place]; Sulfa (Sulfonamide Antibiotics) ? PERSONAL HISTORY: Social History Socioeconomic History Marital status: Spouse name: Jose Number of children: 2 Years of education: 14 Highest education level: Not on file Occupational History Occupation: retired Tobacco Use Smoking status: Never Smoker Smokeless tobacco: Never Used Substance and Sexual Activity Alcohol use: No Drug use: No Sexual activity: Yes Partners: Male control/protection: Tubal Ligation ? FAMILY HISTORY ? Cancer Maternal Grandfather ?? testicular ? Cancer Mother ?? melanoma ? ? REVIEW OF SYSTEMS: (obtained by nursing staff and reviewed by me) General: The patient denies fatigue, denies weight loss, denies weight gain, denies feeling hot, and denies feelings of cold. Eyes: The patient denies glaucoma, denies eye injury/surgery, wears glasses or contacts. Ear/Nose/Throat: The patient denies allergies, denies hayfever, denies ear infections, and denies bloody noses. Cardiovascular: The patient denies chest pain, denies heart disease, NOTES high blood pressure,denies cardiac stent, denies prior heart attack, denies irregular heart beat, denies high cholesterol, denies poor circulation, denies heart failure, other cardiac issues, denies claudication, denies cold feet, denies peripheral arterial stent. Respiratory: The patient denies tuberculosis, denies pneumonia, denies frequent cough, denies pulmonary embolism, denies shortness of breath, and denies coughing up blood. Gastrointestinal: The patient denies difficulty swallowing, denies acid reflux, denies ulcers, denies vomiting, denies jaundice/hepatitis, denies gallbladder problems, denies black or tarry stools, denies hemorrhoids, denies bleeding from rectum, NOTES diverticulitis, denies constipation, denies diarrhea, denies loss of stool control, and denies hernias. Kidney/Bladder: The patient denies kidney stones, denies urine infections, and denies bloody urine. Skin: The patient denies a history of skin cancer, denies bleeding/changing moles, and denies a history of skin rash. Neurologic: The patient denies a history of epilepsy/convulsions, denies headaches, denies head/spinal injuries, and denies stroke/TIA. Psychiatric: The patient denies psychiatric medications, denies depression, and denies voices, denies substance abuse. Endocrine: The patient denies thyroid disorders, denies diabetes, and denies hormonal problems. Hematologic: The patient denies a history of bruising, denies bleeding, and denies anemia, denies blood clots. Infections: The patient NOTES a history of measles and mumps, denies rheumatic fever, and denies sexually transmitted diseases. Musculoskeletal: The patient NOTES back pain/injury, NOTES back problems, denies sciatica, NOTES knee/foot trouble, denies arthritis, or denies gout. ? PHYSICAL EXAMINATION: General: The patient is 63 year old female, well nourished, well hydrated in no acute distress. The patient is oriented to time, place, and person. VITALS: Blood pressure 124/84, pulse 90, temperature 36.6 ?C (97.8 ?F), weight 73.6 kg (162 lb 3.2 oz), SpO2 98 %. Body mass index is 30.65 kg/m?. Head ? Normocephalic. EOM intact with sclera clear and no icterus noted. Mouth with mucus membranes moist. Neck - supple with no jugular venous distention noted. Trachea is midline. No carotid bruits noted. No thyroid enlargement or thyroid nodules detected. No masses noted. Chest/breast ? right breast surgically absent with seroma aspiration - serosanguinous - 110 ml obtained Lungs ? clear to auscultation. Normal breath sounds. No rales/rhonchi/wheezing noted. No labored breathing noted, such as retractions. No cough heard. Heart ? normal S1 and S2 auscultated. No rubs/clicks/murmurs noted. Regular rate. Abdomen ? soft and benign. Normal bowel sounds. No abdominal bruits noted. No distention noted. Extremities ? no calf tenderness noted. No pitting edema noted. d. Skin ? normal skin integrity. Lymph ? no cervical adenopathy detected, no supraclavicular adenopathy detected, no axillary adenopathy detected Neurological ? gait normal, no focal deficits noted. Psych ? calm and appropriate ? ? IMPRESSION: metastatic breast cancer, need for IV access for palliative chemotherapy ? PLAN: I have discussed the above with the patient and her who is present with her. I have offered patient placement of portacath. Patient has been counseled as to the risks/benefits of the procedure. ?I have explained the risks of the surgery, including but not limited to: infection, bleeding, ?injury to any blood vessels/nerves, ?injury to lungs (such as pneumothorax or hemothorax and need for chest tube), not having any access, nonfunctioning of port due to thrombosis, infection of port, ?etc. ? the patient understands and agrees to proceed. ?I have answered all of the patient's questions to the patient?s satisfaction and the patient has no further questions. The patient wishes to proceed. I have answered all questions to the patient?s satisfaction and the patient has no further questions. . ?
[2019-05-07] MEDS: Lactated Ringers 1,000 ML 75 ML IV (07:00)
[2019-05-07 12:40] VITALS: BP 107/69; PULSE 72; RESP 16; TEMP 36.8; O2SAT 95; BMI 30.8
--- NOTE | 2019-05-07 15:09 | PCM.OPRPT ---
Report of Operation Date of Procedure: 05/07/19 Pre-Operative Diagnosis: metastatic breast cancer, postoperative right mastectomy seroma Post-Operative Diagnosis: same Surgery/Procedure Performed:: placement of permanent indwelling tunnelled catheter in left subclavian vein with subcutaneous port, placement of seroma catheter at right mastectomy bed Description of Surgical Findings:: normal left subclavian vein anatomy to SVC, seroma of right mastectomy bed - 80ml serosanguinous fluid output Type of Anesthesia:: Local MAC Anesthesiologist: Jigar Cooley Specimen's removed: none Estimated Blood Loss (mL): < 5 ml Fluids Replaced: 500 ml RL Description of Procedure: After informed consent was given, the patient was brought to the Operating Room. Appropriate time out protocol was followed. She was then placed in the supine position. She was then given IV conscious sedation for anesthesia. The patient?s upper chest and neck were then prepped with a surgical skin preparation and sterile surgical drapes were placed. After proper landmarks were ascertained, the skin at the upper left chest area was then infiltrated with 1% xylocaine with epinephrine. A needle trocar was then inserted into the left subclavian vein and there was good aspiration of venous blood. A wire was then threaded into the needle trocar and this was visualized under fluoroscopy to ensure that the wire was in the left subclavian vein. Once this was done, then the needle trocar was removed. A small skin timothy was made with an 11 blade knife at the wire entrance site. The dilator with the introducer sheath attached was then placed over the wire into the left subclavian vein via the Seldinger technique and this was visualized under fluoroscopy. The dilator and sheath were in proper position as visualized by fluoroscopy. The wire and dilator were then removed. The catheter was then threaded into the introducer sheath and was positioned with its tip at the junction of the superior vena cava and the right atrium as visualized under fluoroscopy. The catheter was flushed with a heparin saline mixture prior to placement. A subcutaneous pocket was then created caudad to the catheter insertion site. A transverse skin incision was made after the skin and subcutaneous tissues were infiltrated with local anesthetic. Blunt dissection was then used to create a space large enough for placement of the subcutaneous port. Hemostasis was carefully controlled with electrocautery. The port was sutured to the subcutaneous fascia using vicryl suture at three sites. The catheter was then tunneled into the subcutaneous pocket. The excess catheter was transected. The catheter was then attached to the subcutaneous port using process control programmer?s guidelines. The port was then placed in the subcutaneous pocket and the sutures were ligated. The subdermal incisional sites were reapproximated with interrupted vicryl suture. The skin was reapproximated with monocryl suture in a subcuticular fashion. Cavilon and steristrips were used for reinforcement of the skin closure and a sterile opsite dressing was applied. The skin at the right mastectomy site was cleansed with sterile surgical skin prep. Appropriate sterile drapes were placed. A small skin incision was made in the lateral inferior aspect of the right mastectomy seroma site. A 15 Fr passive round drain placed in seroma cavity It was sutured to skin with 3-0 nylon suture. There was aspiration of about 80 ml of serosanguinous fluid. Sterile dressing was applied Patient brought to Recovery Room in stable condition. - Complications none noted - Admit VTE Documentation VTE Present on Admission: Yes VTE Mechan Device Prophylaxis: SCD's
[2019-05-07 15:13] VITALS: BP 107/69; BP 118/54; PULSE 77; RESP 18; TEMP 36.4; O2SAT 97
[2019-05-07 15:15] VITALS: BP 107/69; BP 123/60; PULSE 72; RESP 18; O2SAT 98
--- NOTE | 2019-05-07 15:16 | DCINST_ITS ---
Discharge Diet: No Restrictions Discharge Activity: Return to Normal Activity Call your doctor if your incision/area has: Continuous Slow Oozing, Foul Smelling Discharge Additional Dressing/Incision Instructions:: Keep dressings in place. May shower, but keep catheter covered. Do not soak - no tub baths/swimming Allergies/Adverse Reactions: Allergies acetaminophen [From Percocet] Allergy (Verified 05/07/19 12:39) hives and nausea amoxicillin Allergy (Verified 05/07/19 12:39) Fever and skin rash Cephalosporins Allergy (Verified 05/07/19 12:39) Fever and skin rash ciprofloxacin [From Cipro] Allergy (Verified 05/07/19 12:39) Fever and skin rash codeine Allergy (Verified 05/07/19 12:39) Fever and skin rash erythromycin base Allergy (Verified 05/07/19 12:39) Fever and skin rash hydrocodone [From [place]] Allergy (Verified 05/07/19 12:39) hives and nausea latex Allergy (Verified 05/07/19 12:39) Rash nalbuphine [From Nubain] Allergy (Verified 05/07/19 12:39) Fever and skin rash oxycodone [From Percocet] Allergy (Verified 05/07/19 12:39) hives and nausea prednisone Allergy (Verified 05/07/19 12:39) hives with blood underneath Sulfa (Sulfonamide Antibiotics) Allergy (Verified 05/07/19 12:39) Fever and skin rash aspirin Adverse Reaction (Verified 05/07/19 12:39) stomach bleed AND DARK STOOL meperidine [From Demerol] Adverse Reaction (Verified 05/07/19 12:39) Upset Stomach RYE Allergy (Uncoded 05/07/19 12:39) MIGRAINE LOONEY Medications to take at Discharge gabapentin 100 mg capsule 300 mg PO QHS 05/31/17 DiphenhydrAMINE [Benadryl] 25 mg PO Q8H PRN PRN 03/29/19 Losartan Potassium [Cozaar] 50 mg PO QDAY 03/29/19 Multivitamin [Multiple Vitamins] 1 ea PO DAILY 03/29/19 Naproxen Sodium [Aleve] 220 mg PO Q8H PRN PRN 03/29/19 Primary Care Physician: Mitch Mejia MD [Primary Care Provider] - Test Results: Test results from this visit will be discussed in further detail at your follow- up appointment, if applicable. Please Follow Up With: Leeanna Dorado MD - call When: to be seen next week, please call for date and time, thank you
--- NOTE | 2019-05-07 15:20 | RAD_ITS ---
STUDY: X-RAY CHEST REASON FOR EXAM: Female, 63 years old. Vascular port placement. TECHNIQUE: Single AP portable view of the chest. COMPARISON: Comparison is made with prior examination dated April 19, 2016. FINDINGS: A left-sided portacatheter is in situ. The tip is in the midportion of the superior vena cava. The lungs are clear and expanded. There is no demonstrated pleural abnormality. Normal size heart. Normal mediastinum and jenny. Normal visualized pulmonary arteries. There is atherosclerotic calcification of the aortic arch with tortuosity. There is a dextroscoliosis of the thoracic spine. Levoscoliosis of the lumbar spine. Normal visualized ribs, clavicles, and shoulders. Small hiatal hernia. RAD/CXR for Line Placement IMPRESSION: The tip of the left-sided portacatheter is in the midportion of the superior vena cava. Electronically Signed: Dandre Monk, at 15:47 EST , Service support ,
[2019-05-07 15:31] VITALS: BP 107/69; BP 122/64; PULSE 64; RESP 18; TEMP 36.4; O2SAT 100
[2019-05-07 16:13] VITALS: BP 107/69
== END 2019-05-07 16:29 | disposition home or self-care (01) ==
LOC: SDC 11:55 → AC 12:37
PROVIDERS: Family Provider Family Medicine; PCP Family Medicine; Referring Provider Surgery; Visit Provider Surgery
PROC: (CPT 36561; principal; 2019-05-07 13:15)
DX: Z45.2 Encounter for adjustment and management of vascular access device (principal); C50.911 Malignant neoplasm of unspecified site of right female breast; M96.843 Postprocedural seroma of a musculoskeletal structure following other procedure; Y83.8 Other surgical procedures as the cause of abnormal reaction of the patient, or of later complication, without mention of misadventure at the time of the procedure; Z80.8 Family history of malignant neoplasm of other organs or systems; Z88.0 Allergy status to penicillin; Z88.1 Allergy status to other antibiotic agents; Z88.2 Allergy status to sulfonamides; Z88.5 Allergy status to narcotic agent; Z88.6 Allergy status to analgesic agent; Z88.8 Allergy status to other drugs, medicaments and biological substances; Z90.11 Acquired absence of right breast and nipple; Z86.718 Personal history of other venous thrombosis and embolism
CPT/HCPCS: 00532; 36561; 71045; 77001; J7120; C1788; J2405

== ENCOUNTER → 2019-07-02 12:39 | Outpatient (CLI) | payer MEDICARE, OTHER, SELFPAY ==
[2019-06-19 12:38] VITALS: BMI 30.4
--- NOTE | 2019-07-02 12:41 | ECHODONC_ITS ---
Reason For Study: BREAST CANCER Procedure This was a 2D Doppler, Color Flow transthoracic echocardiogram. Myocardial strain analysis was performed in this exam to aid in the assessment of cardiac function. Exam performed in department. Left Ventricle Normal LV size. Left ventricular systolic function is normal. The estimated ejection fraction is 60 %. Stage 1 diastolic dysfunction. No regional wall motion abnormalities noted. Right Ventricle Normal RV size. Normal systolic function. Atria Normal left atrium. Normal right atrium. Mitral Valve Normal mitral valve. Tricuspid Valve Normal tricuspid valve. Mild (1+) tricuspid valve insufficiency. Pulmonary artery systolic pressure is 34 mmHg. Aortic Valve Normal aortic valve. Trisinus/trileaflet aortic valve. Mild (1+) aortic valve insufficiency. Pulmonic Valve Normal pulmonic valve. Great Vessels Normal aortic root. The pulmonary artery is normal size. Normal inferior vena cava. Pericardium/Pleural No pericardial effusion. MMode/2D Measurements & Calculations LVIDd: 4.2 cm IVSd: 0.84 cm Ao root diam: 3.3 cm LVIDs: 3.0 cm LVPWd: 0.84 cm RVDd: 3.1 cm FS: 28.6 % LAV(MOD-bp): 52.6 ml LA A4 area: 17.2 cm2 LA dimension(2D): 3.9 cm LAV(MOD-bp) Indexed: 30.9 ml/m2 LAV(MOD-sp2): 54.8 ml LAV(MOD-sp4): 49.0 ml RA A4 area: 13.6 cm2 Time Measurements MV dec time: 0.22 sec Doppler Measurements & Calculations MV E max deion: 92.8 cm/sec Lat Peak E' Deion: 9.9 cm/sec Med Peak E' Deion: 5.6 cm/sec MV A max deion: 111.4 cm/sec E/E' lat: 9.4 E/E' med: 16.5 MV E/A: 0.83 Ao V2 max: 132.0 cm/sec AI max deion: 391.3 cm/sec LV V1 max: 106.3 cm/sec Ao max P.0 mmHg AI max P.3 mmHg LV V1 max P.5 mmHg AI dec slope: 252.8 cm/sec2 AI P1/2t: 453.3 msec PA V2 max: 100.0 cm/sec PI end-d deion: 125.4 cm/sec TR max deion: 268.9 cm/sec TR max P.1 mmHg Interpretation Summary Normal LV size. Left ventricular systolic function is normal. The estimated ejection fraction is 60 %. Stage 1 diastolic dysfunction. Mild (1+) aortic valve insufficiency. The global longitudinal strain = -18.4 % (normal). Ordering Physician: Rip Rivers Referring Physician: ARMANDO FONTANEZ Performed By: Pilar Villeda, STACIE, RVT
== END ==
PROVIDERS: PCP Family Medicine; Referring Provider Internal Medicine Hematology & Oncology; Visit Provider Internal Medicine Hematology & Oncology
DX: I42.7 Cardiomyopathy due to drug and external agent (principal); C50.311 Malignant neoplasm of lower-inner quadrant of right female breast; C78.00 Secondary malignant neoplasm of unspecified lung; Z17.0 Estrogen receptor positive status [ER+]; T45.1X5A Adverse effect of antineoplastic and immunosuppressive drugs, initial encounter
CPT/HCPCS: 93306; 93356

== ENCOUNTER → 2019-09-26 07:36 | Outpatient (CLI) | payer MEDICARE, OTHER, SELFPAY ==
[2019-06-19 12:38] VITALS: BMI 30.4
--- NOTE | 2019-09-26 07:40 | ECHODONC_ITS ---
Reason For Study: CARDIOTOXIC DRUG THERAPY Procedure This was a 2D Doppler, Color Flow transthoracic echocardiogram. Myocardial strain analysis was performed in this exam to aid in the assessment of cardiac function. Exam performed in department. Left Ventricle Normal LV size. Left ventricular systolic function is normal. The estimated ejection fraction is 58 %. No evidence for diastolic dysfunction. No regional wall motion abnormalities noted. Right Ventricle Normal RV size. Normal systolic function. Atria Normal left atrium. Normal right atrium. Mitral Valve Normal mitral valve. Mild (1+) eccentric mitral valve insufficiency. Tricuspid Valve Normal tricuspid valve. Mild (1+) tricuspid valve insufficiency. Pulmonary artery systolic pressure is 36 mmHg. Aortic Valve Trisinus/trileaflet aortic valve. Mild (1+) aortic valve insufficiency. Pulmonic Valve Normal pulmonic valve. Great Vessels Normal aortic root. The pulmonary artery is normal size. Normal inferior vena cava. Pericardium/Pleural No pericardial effusion. MMode/2D Measurements & Calculations LVIDd: 4.1 cm IVSd: 0.74 cm Ao root diam: 3.4 cm LVIDs: 2.8 cm LVPWd: 0.72 cm RVDd: 3.6 cm FS: 31.5 % LAV(MOD-bp): 41.3 ml LA A4 area: 12.7 cm2 LA dimension(2D): 3.7 cm LAV(MOD-bp) Indexed: 24.4 ml/m2 LAV(MOD-sp2): 53.2 ml LAV(MOD-sp4): 29.2 ml RA A4 area: 11.3 cm2 Time Measurements MV dec time: 0.25 sec Doppler Measurements & Calculations MV E max deion: 74.1 cm/sec Lat Peak E' Deion: 10.7 cm/sec Med Peak E' Deion: 5.3 cm/sec MV A max deion: 111.4 cm/sec E/E' lat: 6.9 E/E' med: 14.0 MV E/A: 0.66 Ao V2 max: 136.4 cm/sec AI max deion: 392.3 cm/sec LV V1 max: 112.9 cm/sec Ao max P.4 mmHg AI max P.6 mmHg LV V1 max P.1 mmHg AI dec slope: 217.2 cm/sec2 AI P1/2t: 528.9 msec PA V2 max: 114.3 cm/sec PI end-d deion: 154.3 cm/sec TR max deion: 279.1 cm/sec TR max P.2 mmHg Interpretation Summary Normal LV size. Left ventricular systolic function is normal. The estimated ejection fraction is 58 %. No evidence for diastolic dysfunction. Mild (1+) eccentric mitral valve insufficiency. Mild (1+) aortic valve insufficiency. The global longitudinal strain is normal. The global longitudinal strain = -20.5 % (normal). Ordering Physician: Caity Cote Referring Physician: ARMANDO FONTANEZ Performed By: Pilar Villeda, STACIE, RVT
== END ==
PROVIDERS: PCP Family Medicine; Referring Provider Nurse Practitioner; Visit Provider Nurse Practitioner
DX: C50.311 Malignant neoplasm of lower-inner quadrant of right female breast (principal); Z17.0 Estrogen receptor positive status [ER+]; C78.00 Secondary malignant neoplasm of unspecified lung; Z51.81 Encounter for therapeutic drug level monitoring; Z79.899 Other long term (current) drug therapy
CPT/HCPCS: 93306; 93356

== ENCOUNTER → 2019-12-04 09:40 | Outpatient (CLI) | payer MEDICARE, OTHER, SELFPAY ==
[2019-06-19 12:38] VITALS: BMI 30.4
--- NOTE | 2019-12-04 09:42 | ECHODONC_ITS ---
Reason For Study: Cardiotoxic Drug Therapy Procedure This was a 2D Doppler, Color Flow transthoracic echocardiogram. Myocardial strain analysis was performed in this exam to aid in the assessment of cardiac function. Exam performed in department. Left Ventricle Normal LV size. The estimated ejection fraction is 45 %. No regional wall motion abnormalities noted. Right Ventricle Normal RV size. Normal systolic function. Atria Normal left atrium. Normal right atrium. Mitral Valve Normal mitral valve. Mild (1+) eccentric mitral valve insufficiency. Tricuspid Valve Normal tricuspid valve. Mild tricuspid valve insufficiency. Aortic Valve Trisinus/trileaflet aortic valve. Normal aortic valve. Mild (1+) aortic valve insufficiency. Pulmonic Valve Normal pulmonic valve. Mild (1+) pulmonic valve insufficiency. Great Vessels Normal aortic root. The pulmonary artery is normal size. Normal inferior vena cava. Pericardium/Pleural No pericardial effusion. MMode/2D Measurements & Calculations LVIDd: 4.3 cm IVSd: 1.0 cm LA dimension: 3.6 cm LVIDs: 3.4 cm LVPWd: 0.77 cm RVDd: 2.8 cm FS: 21.8 % LAV(MOD-bp): 38.0 ml LA A4 area: 14.1 cm2 RA A4 area: 10.8 cm2 LAV(MOD-bp) Indexed: 22.5 ml/m2 LAV(MOD-sp2): 42.9 ml LAV(MOD-sp4): 33.4 ml Time Measurements MV dec time: 0.31 sec Doppler Measurements & Calculations MV E max deion: 81.4 cm/sec Lat Peak E' Deion: 8.6 cm/sec Med Peak E' Deion: 7.0 cm/sec MV A max deion: 103.0 cm/sec E/E' lat: 9.5 E/E' med: 11.7 MV E/A: 0.79 MV V2 max: 119.4 cm/sec MV P1/2t max deion: 85.7 cm/sec Ao V2 max: 98.9 cm/sec MV max P.7 mmHg MV P1/2t: 111.0 msec Ao max P.9 mmHg MV V2 mean: 63.5 cm/sec MV dec slope: 226.2 cm/sec2 MV mean P.9 mmHg MVA(P1/2t): 2.0 cm2 MV V2 VTI: 36.4 cm AI max deion: 332.2 cm/sec LV V1 max: 81.3 cm/sec PA V2 max: 83.8 cm/sec AI max P.1 mmHg LV V1 max P.6 mmHg AI dec slope: 146.8 cm/sec2 AI P1/2t: 662.8 msec PI end-d deion: 123.3 cm/sec TR max deion: 242.4 cm/sec TR max P.5 mmHg Interpretation Summary Normal LV size. The estimated ejection fraction is 45 %. Mild (1+) eccentric mitral valve insufficiency. Mild (1+) aortic valve insufficiency. The global longitudinal strain is mildly abnormal. The global longitudinal strain = -16.6% (abnormal). Compared to previous study, the left ventricular systolic function has worsened.. The prior global longitudinal strain was -20 % . Ordering Physician: Rip Rivers Referring Physician: Mitch Mejia Performed By: Reed Green RCS
== END ==
PROVIDERS: PCP Family Medicine; Referring Provider Internal Medicine Hematology & Oncology; Visit Provider Internal Medicine Hematology & Oncology
DX: C50.911 Malignant neoplasm of unspecified site of right female breast (principal); Z17.0 Estrogen receptor positive status [ER+]; C78.00 Secondary malignant neoplasm of unspecified lung; Z51.81 Encounter for therapeutic drug level monitoring; Z79.899 Other long term (current) drug therapy
CPT/HCPCS: 93306; 93356

== ENCOUNTER → 2020-01-14 10:55 | Outpatient (CLI) | payer MEDICARE, OTHER, SELFPAY ==
[2019-06-19 12:38] VITALS: BMI 30.4
--- NOTE | 2020-01-14 10:58 | ECHODONC_ITS ---
Reason For Study: HIGH RISK MEDS Procedure This was a 2D Doppler, Color Flow transthoracic echocardiogram. Myocardial strain analysis was performed in this exam to aid in the assessment of cardiac function. Exam performed in department. Left Ventricle Normal LV size. The estimated ejection fraction is 40 %. There is mild global hypokinesis of the left ventricle. Right Ventricle Normal RV size. Normal systolic function. Atria Normal left atrium. Normal right atrium. Mitral Valve Normal mitral valve. Mild (1+) eccentric mitral valve insufficiency. Tricuspid Valve Normal tricuspid valve. Mild (1+) tricuspid valve insufficiency. Pulmonary artery systolic pressure is 35 mmHg. Aortic Valve Normal aortic valve. Mild (1+) aortic valve insufficiency. Pulmonic Valve Normal pulmonic valve. Great Vessels Normal aortic root. The pulmonary artery is normal size. Normal inferior vena cava. Pericardium/Pleural No pericardial effusion. MMode/2D Measurements & Calculations LVIDd: 4.3 cm IVSd: 0.81 cm Ao root diam: 3.3 cm LVIDs: 3.2 cm LVPWd: 0.88 cm RVDd: 3.4 cm FS: 26.8 % LA dimension(2D): 3.7 cm Time Measurements MV dec time: 0.20 sec Doppler Measurements & Calculations MV E max johnathan: 76.7 cm/sec Ao V2 max: 125.3 cm/sec AI max johnathan: 399.2 cm/sec MV A max johnathan: 104.6 cm/sec Ao max P.3 mmHg AI max P.8 mmHg MV E/A: 0.73 AI dec slope: 243.8 cm/sec2 AI P1/2t: 479.5 msec LV V1 max: 93.2 cm/sec PA V2 max: 95.2 cm/sec PI end-d johnathan: 123.5 cm/sec LV V1 max P.5 mmHg TR max johnathan: 278.1 cm/sec TR max P.3 mmHg Interpretation Summary Normal LV size. The estimated ejection fraction is 40 %. Mild (1+) tricuspid valve insufficiency. Pulmonary artery systolic pressure is 35 mmHg. Mild (1+) aortic valve insufficiency. The global longitudinal strain = -17.8 % (normal). Ordering Physician: Rip Rivers Referring Physician: Rip Rivers Performed By: Pilar Villeda, STACIE, RVT
== END ==
PROVIDERS: PCP Family Medicine; Referring Provider Internal Medicine Hematology & Oncology; Visit Provider Internal Medicine Hematology & Oncology
DX: I42.7 Cardiomyopathy due to drug and external agent (principal); T45.1X5A Adverse effect of antineoplastic and immunosuppressive drugs, initial encounter
CPT/HCPCS: 93306; 93356

== ENCOUNTER → 2020-02-22 10:24 | Outpatient (CLI) | payer MEDICARE, OTHER, SELFPAY ==
[2020-01-22 14:42] VITALS: BMI 30.2
--- NOTE | 2020-02-22 10:25 | ECHOLONC_ITS ---
Reason For Study: CARDIOMYOPATHY Procedure This was a limited 2D transthoracic echocardiogram. Myocardial strain analysis was performed in this exam to aid in the assessment of cardiac function. Exam performed in department. Left Ventricle Normal LV size. Left ventricular systolic function is normal. The estimated ejection fraction is 55 %. No regional wall motion abnormalities noted. Right Ventricle Normal RV size. Normal systolic function. MMode/2D Measurements & Calculations LVIDd: 4.0 cm IVSd: 0.82 cm LVIDs: 3.0 cm LVPWd: 0.82 cm FS: 26.0 % Interpretation Summary Normal LV size. Left ventricular systolic function is normal. The estimated ejection fraction is 55 %. The global longitudinal strain is normal. The global longitudinal strain = -18.9 % (normal). Compared to previous study, the left ventricular systolic function has improved.. The global longitudinal strain has improved. Ordering Physician: Mayco Galeano Referring Physician: Mayco Galeano Performed By: Ronal STACIE, Pilar RAWLS and Student
== END ==
PROVIDERS: PCP Family Medicine; Referring Provider Internal Medicine Cardiovascular Disease; Visit Provider Internal Medicine Cardiovascular Disease
DX: I42.8 Other cardiomyopathies (principal); C50.911 Malignant neoplasm of unspecified site of right female breast; C78.00 Secondary malignant neoplasm of unspecified lung
CPT/HCPCS: 93308; 93356

== ENCOUNTER → 2020-04-28 07:37 | Outpatient (CLI) | payer MEDICARE, OTHER, SELFPAY ==
[2020-01-22 14:42] VITALS: BMI 30.2
--- NOTE | 2020-04-28 07:40 | ECHODONC_ITS ---
Reason For Study: Chemo induced CMP Procedure This was a 2D Doppler, Color Flow transthoracic echocardiogram. Myocardial strain analysis was performed in this exam to aid in the assessment of cardiac function. Exam performed in department. Left Ventricle Normal LV size. Left ventricular systolic function is normal. The estimated ejection fraction is 55 %. Stage 1 diastolic dysfunction. No regional wall motion abnormalities noted. Right Ventricle Normal RV size. Normal systolic function. Atria Normal left atrium. Normal right atrium. Mitral Valve Normal mitral valve. Tricuspid Valve Normal tricuspid valve. Mild (1+) tricuspid valve insufficiency. Pulmonary artery systolic pressure is 35 mmHg. Aortic Valve Normal aortic valve. Trisinus/trileaflet aortic valve. Mild (1+) aortic valve insufficiency. Pulmonic Valve Normal pulmonic valve. Great Vessels Normal aortic root. The pulmonary artery is normal size. Normal inferior vena cava. Pericardium/Pleural No pericardial effusion. MMode/2D Measurements & Calculations LVIDd: 4.5 cm IVSd: 1.0 cm Ao root diam: 3.6 cm LVIDs: 3.4 cm LVPWd: 0.69 cm LA dimension: 4.0 cm RVDd: 3.3 cm FS: 26.0 % LAV(MOD-bp): 50.2 ml LA A4 area: 16.4 cm2 RA A4 area: 13.5 cm2 LAV(MOD-bp) Indexed: 29.0 ml/m2 LAV(MOD-sp2): 57.2 ml LAV(MOD-sp4): 38.8 ml Time Measurements MV dec time: 0.22 sec Doppler Measurements & Calculations MV E max deion: 78.7 cm/sec Lat Peak E' Deion: 8.0 cm/sec Med Peak E' Deion: 5.4 cm/sec MV A max deion: 120.8 cm/sec E/E' lat: 9.8 E/E' med: 14.6 MV E/A: 0.65 MV V2 max: 139.6 cm/sec MV P1/2t max deion: 91.5 cm/sec Ao V2 max: 101.6 cm/sec MV max P.8 mmHg MV P1/2t: 124.2 msec Ao max P.1 mmHg MV V2 mean: 70.3 cm/sec MV dec slope: 215.7 cm/sec2 MV mean P.3 mmHg MVA(P1/2t): 1.8 cm2 MV V2 VTI: 39.8 cm AI max deion: 408.2 cm/sec LV V1 max: 80.9 cm/sec PA V2 max: 92.5 cm/sec AI max P.7 mmHg LV V1 max P.6 mmHg AI dec slope: 204.5 cm/sec2 AI P1/2t: 584.7 msec TR max deion: 278.5 cm/sec TR max P.1 mmHg Interpretation Summary Normal LV size. Left ventricular systolic function is normal. The estimated ejection fraction is 55 %. Stage 1 diastolic dysfunction. The prior global longitudinal strain was -18.9 % . The global longitudinal strain is normal. The global longitudinal strain = -18.2 % (normal). Ordering Physician: Rip Rivers Referring Physician: Mitch Mejia Performed By: Reed Green RCS
== END ==
PROVIDERS: PCP Family Medicine; Referring Provider Internal Medicine Hematology & Oncology; Visit Provider Internal Medicine Hematology & Oncology
DX: I42.7 Cardiomyopathy due to drug and external agent (principal); T45.1X5A Adverse effect of antineoplastic and immunosuppressive drugs, initial encounter
CPT/HCPCS: 93306; 93356

== ENCOUNTER → 2020-07-17 07:54 | Outpatient (CLI) | payer MEDICARE, OTHER, SELFPAY ==
[2020-01-22 14:42] VITALS: BMI 30.2
== END ==
PROVIDERS: PCP Family Medicine; Referring Provider Nurse Practitioner; Visit Provider Nurse Practitioner
DX: C50.311 Malignant neoplasm of lower-inner quadrant of right female breast (principal); Z17.0 Estrogen receptor positive status [ER+]; C78.00 Secondary malignant neoplasm of unspecified lung; T45.1X5A Adverse effect of antineoplastic and immunosuppressive drugs, initial encounter; I42.7 Cardiomyopathy due to drug and external agent
CPT/HCPCS: 93306

== ENCOUNTER → 2020-10-02 07:51 | Outpatient (CLI) | payer MEDICARE, OTHER, SELFPAY ==
[2020-08-12 14:13] VITALS: BMI 33.4
--- NOTE | 2020-10-02 07:53 | ECHODONC_ITS ---
Reason For Study: LUNG NODULES Procedure This was a 2D Doppler, Color Flow transthoracic echocardiogram. Myocardial strain analysis was performed in this exam to aid in the assessment of cardiac function. Exam performed in department. Left Ventricle Normal LV size. Left ventricular systolic function is normal. The estimated ejection fraction is 53 %. Stage 1 diastolic dysfunction. No regional wall motion abnormalities noted. Right Ventricle Normal RV size. Normal systolic function. Atria Normal left atrium. Normal right atrium. Mitral Valve Normal mitral valve. Tricuspid Valve Normal tricuspid valve. Mild (1+) tricuspid valve insufficiency. Pulmonary artery systolic pressure is 36 mmHg. Aortic Valve The aortic valve is not well visualized. Mild (1+) aortic valve insufficiency. Pulmonic Valve The pulmonic valve is not well visualized. Great Vessels Normal aortic root. The pulmonary artery is normal size. Normal inferior vena cava. Pericardium/Pleural No pericardial effusion. MMode/2D Measurements & Calculations LVIDd: 4.6 cm IVSd: 0.85 cm Ao root diam: 3.2 cm LVIDs: 3.2 cm LVPWd: 0.85 cm RVDd: 3.4 cm FS: 30.6 % LAV(MOD-bp): 54.0 ml LA A4 area: 17.8 cm2 LA dimension(2D): 3.8 cm LAV(MOD-bp) Indexed: 30.1 ml/m2 LAV(MOD-sp2): 52.3 ml LAV(MOD-sp4): 52.3 ml RA A4 area: 13.6 cm2 Time Measurements MV dec time: 0.16 sec Doppler Measurements & Calculations MV E max deion: 90.3 cm/sec Lat Peak E' Deion: 12.0 cm/sec Med Peak E' Deion: 8.0 cm/sec MV A max deion: 106.7 cm/sec E/E' lat: 7.5 E/E' med: 11.3 MV E/A: 0.85 Ao V2 max: 118.0 cm/sec AI max deion: 388.5 cm/sec LV V1 max: 96.7 cm/sec Ao max P.6 mmHg AI max P.4 mmHg LV V1 max P.7 mmHg AI dec slope: 193.7 cm/sec2 AI P1/2t: 587.6 msec PA V2 max: 101.0 cm/sec TR max deion: 287.7 cm/sec TR max P.1 mmHg ECHO/ONC Echo Complete Interpretation Summary Normal LV size. Left ventricular systolic function is normal. The estimated ejection fraction is 53 %. Stage 1 diastolic dysfunction. Mild (1+) aortic valve insufficiency. Mild (1+) tricuspid valve insufficiency. The global longitudinal strain is normal. The global longitudinal strain = -19. 9 % (normal). Ordering Physician: Caity Cote Referring Physician: Mitch Mejia Performed By: Ely Guerrero, STACIE, RVT
== END ==
PROVIDERS: PCP Family Medicine; Referring Provider Nurse Practitioner; Visit Provider Nurse Practitioner
DX: C50.311 Malignant neoplasm of lower-inner quadrant of right female breast (principal); Z17.0 Estrogen receptor positive status [ER+]; C78.00 Secondary malignant neoplasm of unspecified lung; R91.8 Other nonspecific abnormal finding of lung field; Z51.81 Encounter for therapeutic drug level monitoring; Z79.899 Other long term (current) drug therapy
CPT/HCPCS: 93306; 93356

== ENCOUNTER → 2021-02-11 12:34 | Outpatient (CLI) | payer MEDICARE, OTHER, SELFPAY ==
[2020-08-12 14:13] VITALS: BMI 33.4
--- NOTE | 2021-02-11 12:37 | ECHOD_ITS ---
Reason For Study: Lung Nodule Procedure This was a 2D Doppler, Color Flow transthoracic echocardiogram. Myocardial strain analysis was performed in this exam to aid in the assessment of cardiac function. The study was technically difficult. Exam performed in department. Left Ventricle Normal LV size. Left ventricular systolic function is normal. The estimated ejection fraction is 55 %. The global longitudinal strain = -19 % (normal). No evidence for diastolic dysfunction. No regional wall motion abnormalities noted. Right Ventricle Normal RV size. Normal systolic function. Atria Normal left atrium. Normal right atrium. No doppler evidence for ASD. Mitral Valve There is no mitral annular calcification. Normal mitral valve. Mild (1+) mitral valve insufficiency. Tricuspid Valve Normal tricuspid valve. Mild to moderate (1-2+) tricuspid valve insufficiency. Right ventricular systolic pressure estimated to be 35 mmHg. Aortic Valve Trisinus/trileaflet aortic valve. Normal aortic valve. Pulmonic Valve The pulmonic valve is not well visualized. Trivial pulmonic valve insufficiency. Great Vessels Normal sized aortic root. Pericardium/Pleural No pericardial effusion. MMode/2D Measurements & Calculations LVIDd: 4.1 cm IVSd: 0.98 cm Ao root diam: 3.4 cm LVIDs: 3.0 cm LVPWd: 0.83 cm LA dimension: 3.7 cm RVDd: 2.7 cm FS: 26.1 % LAV(MOD-bp): 45.3 ml LA A4 area: 15.7 cm2 RA A4 area: 11.1 cm2 LAV(MOD-bp) Indexed: 24.6 ml/m2 LAV(MOD-sp2): 48.5 ml LAV(MOD-sp4): 36.9 ml Time Measurements MV dec time: 0.31 sec Doppler Measurements & Calculations MV E max deion: 82.5 cm/sec Lat Peak E' Deion: 11.4 cm/sec Med Peak E' Deion: 7.0 cm/sec MV A max deion: 96.0 cm/sec E/E' lat: 7.3 E/E' med: 11.8 MV E/A: 0.86 MV V2 max: 97.7 cm/sec MV P1/2t max deion: 88.6 cm/sec Ao V2 max: 128.1 cm/sec MV max P.8 mmHg MV P1/2t: 75.3 msec Ao max P.6 mmHg MV V2 mean: 65.4 cm/sec MV dec slope: 344.6 cm/sec2 MV mean P.9 mmHg MVA(P1/2t): 2.9 cm2 MV V2 VTI: 30.2 cm AI max deion: 352.8 cm/sec LV V1 max: 87.6 cm/sec MR max deion: 576.5 cm/sec AI max P.8 mmHg LV V1 max P.1 mmHg MR max P.0 mmHg MR mean deion: 468.6 cm/sec AI dec slope: 184.5 cm/sec2 MR mean P.8 mmHg AI P1/2t: 560.0 msec MR VTI: 200.1 cm PA V2 max: 93.4 cm/sec TR max deion: 280.5 cm/sec TR max P.5 mmHg ECHO/ONC Echo Complete Interpretation Summary The study was technically difficult. Left ventricular systolic function is normal. The estimated ejection fraction is 55 %. The global longitudinal strain = -19 % (normal). Mild (1+) mitral valve insufficiency. Mild to moderate (1-2+) tricuspid valve insufficiency. Trivial pulmonic valve insufficiency. Right ventricular systolic pressure estimated to be 35 mmHg. No evidence for diastolic dysfunction. Ordering Physician: Caity Cote Referring Physician: Mitch Mejia Performed By: Reed Green RCS
== END ==
PROVIDERS: PCP Family Medicine; Referring Provider Nurse Practitioner; Visit Provider Nurse Practitioner
DX: I42.7 Cardiomyopathy due to drug and external agent (principal); T45.1X5A Adverse effect of antineoplastic and immunosuppressive drugs, initial encounter; C50.311 Malignant neoplasm of lower-inner quadrant of right female breast; Z17.0 Estrogen receptor positive status [ER+]; R91.8 Other nonspecific abnormal finding of lung field
CPT/HCPCS: 93306; 93356

== ENCOUNTER 2021-07-13 13:46 | Outpatient (CLI) | payer MEDICARE, OTHER, SELFPAY ==
--- NOTE | 2021-07-13 13:49 | ECHOD_ITS ---
Reason For Study: CARDIOMYOPATHY Procedure This was a 2D Doppler, Color Flow transthoracic echocardiogram. Myocardial strain analysis was performed in this exam to aid in the assessment of cardiac function. Exam performed in department. Left Ventricle Normal LV size. Left ventricular systolic function is normal. The estimated ejection fraction is 60 %. Stage 1 diastolic dysfunction. No regional wall motion abnormalities noted. Right Ventricle Normal RV size. Normal systolic function. Atria Normal left atrium. Normal right atrium. Mitral Valve Normal mitral valve. Tricuspid Valve Normal tricuspid valve. Mild tricuspid valve insufficiency. Pulmonary artery systolic pressure is 34 mmHg. Aortic Valve Normal aortic valve. Trisinus/trileaflet aortic valve. Pulmonic Valve Normal pulmonic valve. Great Vessels Normal aortic root. The pulmonary artery is normal size. Normal inferior vena cava. Pericardium/Pleural No pericardial effusion. MMode/2D Measurements & Calculations LVIDd: 4.0 cm IVSd: 0.87 cm Ao root diam: 3.4 cm LVIDs: 2.7 cm LVPWd: 0.83 cm RVDd: 2.7 cm FS: 31.6 % LAV(MOD-bp): 29.8 ml LA A4 area: 13.3 cm2 LA dimension(2D): 3.5 cm LAV(MOD-bp) Indexed: 16.0 ml/m2 LAV(MOD-sp2): 29.8 ml LAV(MOD-sp4): 29.9 ml RA A4 area: 11.8 cm2 Doppler Measurements & Calculations MV E max deion: 53.7 cm/sec Lat Peak E' Deion: 6.8 cm/sec Med Peak E' Deion: 4.1 cm/sec MV A max deion: 95.9 cm/sec E/E' lat: 7.8 E/E' med: 13.2 MV E/A: 0.56 Ao V2 max: 114.6 cm/sec LV V1 max: 89.9 cm/sec PA V2 max: 105.8 cm/sec Ao max P.3 mmHg LV V1 max P.2 mmHg TR max deion: 271.6 cm/sec TR max P.5 mmHg ECHO/Echo Complete Interpretation Summary Normal LV size. Left ventricular systolic function is normal. The estimated ejection fraction is 60 %. Stage 1 diastolic dysfunction. Pulmonary artery systolic pressure is 34 mmHg. The global longitudinal strain is normal. The global longitudinal strain = -20. 6 % (normal). Ordering Physician: Rip Rivers Referring Physician: ARMANDO FONTANEZ Performed By: Pilar Villeda RDCS, RVT
== END 2021-07-13 23:59 | disposition home or self-care (01) ==
LOC: CVS 13:47
PROVIDERS: PCP Family Medicine; Referring Provider Internal Medicine Hematology & Oncology; Visit Provider Internal Medicine Hematology & Oncology
DX: C50.311 Malignant neoplasm of lower-inner quadrant of right female breast (principal); C79.51 Secondary malignant neoplasm of bone; C78.01 Secondary malignant neoplasm of right lung; C78.02 Secondary malignant neoplasm of left lung; I42.7 Cardiomyopathy due to drug and external agent; Z17.0 Estrogen receptor positive status [ER+]; T45.1X5A Adverse effect of antineoplastic and immunosuppressive drugs, initial encounter
CPT/HCPCS: 93306

== ENCOUNTER → 2021-10-27 | Outpatient (CLI) | payer MEDICARE, OTHER, SELFPAY ==
--- NOTE | 2021-10-27 10:45 | ECHOD_ITS ---
Reason For Study: BONE METS Procedure This was a 2D Doppler, Color Flow transthoracic echocardiogram. Exam performed in department. Left Ventricle Normal LV size. Left ventricular systolic function is normal. The estimated ejection fraction is 60 %. Stage 1 diastolic dysfunction. No regional wall motion abnormalities noted. Right Ventricle Normal RV size. Normal systolic function. Atria Normal left atrium. Normal right atrium. Mitral Valve Normal mitral valve. Tricuspid Valve Normal tricuspid valve. Mild tricuspid valve insufficiency. Pulmonary artery systolic pressure is 28 mmHg. Aortic Valve Trisinus/trileaflet aortic valve. Pulmonic Valve Normal pulmonic valve. Great Vessels Normal aortic root. Pericardium/Pleural No pericardial effusion. MMode/2D Measurements & Calculations LVIDd: 4.5 cm IVSd: 0.86 cm Ao root diam: 3.4 cm LVIDs: 3.0 cm LVPWd: 0.73 cm RVDd: 3.6 cm FS: 33.4 % LAV(MOD-bp): 50.0 ml LVAd ap4: 29.9 cm2 SV(MOD-sp4): 45.5 ml LAV(MOD-bp) Indexed: 27.5 ml/m2 LVLd ap4: 7.9 cm LAV(MOD-sp2): 59.6 ml EDV(MOD-sp4): 92.4 ml LAV(MOD-sp4): 38.2 ml EDV(sp4-el): 95.4 ml LVAs ap4: 19.2 cm2 LVLs ap4: 6.6 cm ESV(MOD-sp4): 47.0 ml ESV(sp4-el): 47.3 ml EF(MOD-sp4): 49.2 % EF(sp4-el): 50.4 % SV(sp4-el): 48.1 ml LA A4 area: 15.2 cm2 LA dimension(2D): 3.3 cm RA A4 area: 14.4 cm2 Doppler Measurements & Calculations MV E max deion: 76.6 cm/sec Lat Peak E' Deion: 10.8 cm/sec Med Peak E' Deion: 6.5 cm/sec MV A max deion: 90.1 cm/sec E/E' lat: 7.1 E/E' med: 11.9 MV E/A: 0.85 Ao V2 max: 107.7 cm/sec LV V1 max: 79.3 cm/sec PA V2 max: 80.9 cm/sec Ao max P.6 mmHg LV V1 max P.5 mmHg TR max deion: 247.9 cm/sec TR max P.6 mmHg ECHO/Echo Complete Interpretation Summary Normal LV size. Left ventricular systolic function is normal. The estimated ejection fraction is 60 %. Stage 1 diastolic dysfunction. Pulmonary artery systolic pressure is 28 mmHg. Ordering Physician: Caity Cote Referring Physician: Mitch Mejia Performed By: Amber Lou RCS
== END | disposition home or self-care (01) ==
LOC: CVS 10:42
PROVIDERS: PCP Family Medicine; Visit Provider Nurse Practitioner
DX: C50.311 Malignant neoplasm of lower-inner quadrant of right female breast (principal); C79.51 Secondary malignant neoplasm of bone; C79.2 Secondary malignant neoplasm of skin; I42.7 Cardiomyopathy due to drug and external agent; Z17.0 Estrogen receptor positive status [ER+]; T45.1X5A Adverse effect of antineoplastic and immunosuppressive drugs, initial encounter
CPT/HCPCS: 93306

== ENCOUNTER → 2022-01-08 | Outpatient (CLI) | payer MEDICARE, OTHER, SELFPAY ==
--- NOTE | 2022-01-08 12:51 | ECHOLONC_ITS ---
Reason For Study: Malignant Neoplasm Procedure This was a limited 2D transthoracic echocardiogram. Myocardial strain analysis was performed in this exam to aid in the assessment of cardiac function. Exam performed in department. Left Ventricle Normal LV size. Left ventricular systolic function is normal. The estimated ejection fraction is 60 %. No regional wall motion abnormalities noted. Right Ventricle Normal RV size. Normal systolic function. Atria Normal left atrium. Normal right atrium. Mitral Valve Normal mitral valve. Mild (1+) eccentric mitral valve insufficiency. Tricuspid Valve Normal tricuspid valve. Mild (1+) tricuspid valve insufficiency. Pulmonary artery systolic pressure is 30 mmHg. Aortic Valve Normal aortic valve. Trisinus/trileaflet aortic valve. Trivial aortic valve insufficiency. Pulmonic Valve Normal pulmonic valve. Great Vessels Normal aortic root. The pulmonary artery is normal size. Normal inferior vena cava. Pericardium/Pleural No pericardial effusion. MMode/2D Measurements & Calculations LVIDd: 4.4 cm IVSd: 0.75 cm Ao root diam: 3.1 cm LVIDs: 2.8 cm LVPWd: 0.82 cm FS: 36.4 % Doppler Measurements & Calculations TR max johnathan: 261.5 cm/sec TR max P.3 mmHg ECHO/ONC Echo, Limited Study Interpretation Summary Normal LV size. Left ventricular systolic function is normal. The estimated ejection fraction is 60 %. Pulmonary artery systolic pressure is 30 mmHg. The global longitudinal strain is normal. The global longitudinal strain = -17. 8 % (normal). Ordering Physician: Caity Cote Referring Physician: Mitch Mejia Performed By: Diane Antony, STACIE, RVT
== END | disposition home or self-care (01) ==
LOC: CVS 12:49
PROVIDERS: PCP Family Medicine; Referring Provider Nurse Practitioner; Visit Provider Nurse Practitioner
DX: C50.311 Malignant neoplasm of lower-inner quadrant of right female breast (principal); C79.51 Secondary malignant neoplasm of bone; C79.2 Secondary malignant neoplasm of skin; I42.7 Cardiomyopathy due to drug and external agent; Z17.0 Estrogen receptor positive status [ER+]; T45.1X5A Adverse effect of antineoplastic and immunosuppressive drugs, initial encounter
CPT/HCPCS: 93308; 93356

== ENCOUNTER → 2022-04-22 | Outpatient (CLI) | payer MEDICARE, OTHER, SELFPAY ==
--- NOTE | 2022-04-22 09:43 | ECHOD_ITS ---
Version 2 Reason For Study: Rt. breast CA Procedure This was a 2D Doppler, Color Flow transthoracic echocardiogram. Myocardial strain analysis was performed in this exam to aid in the assessment of cardiac function. Exam performed in department. Left Ventricle Normal LV size. Left ventricular systolic function is normal. The estimated ejection fraction is 55 %. No regional wall motion abnormalities noted. Right Ventricle Normal RV size. Normal systolic function. Atria Normal left atrium. Normal right atrium. Mitral Valve Normal mitral valve. Trivial eccentric mitral valve insufficiency. Tricuspid Valve Normal tricuspid valve. Mild (1+) tricuspid valve insufficiency. Pulmonary artery systolic pressure is 27 mmHg. Aortic Valve Normal aortic valve. Pulmonic Valve Normal pulmonic valve. Trivial pulmonic valve insufficiency. Great Vessels Normal aortic root. The pulmonary artery is normal size. Normal inferior vena cava. Pericardium/Pleural No pericardial effusion. MMode/2D Measurements & Calculations LVIDd: 4.1 cm IVSd: 0.88 cm Ao root diam: 3.3 cm LVIDs: 2.6 cm LVPWd: 0.95 cm RVDd: 3.2 cm FS: 35.4 % LAV(MOD-bp): 37.9 ml LVAd ap4: 26.7 cm2 LVAd ap2: 30.5 cm2 LAV(MOD-bp) Indexed: 21.1 ml/m2 LVLd ap4: 8.0 cm LVLd ap2: 8.5 cm LAV(MOD-sp2): 39.9 ml EDV(MOD-sp4): 74.2 ml EDV(MOD-sp2): 93.6 ml LAV(MOD-sp4): 34.7 ml EDV(sp4-el): 75.3 ml EDV(sp2-el): 92.8 ml LVAs ap4: 16.1 cm2 LVAs ap2: 16.7 cm2 LVLs ap4: 7.0 cm LVLs ap2: 7.0 cm ESV(MOD-sp4): 32.0 ml ESV(MOD-sp2): 34.1 ml ESV(sp4-el): 31.4 ml ESV(sp2-el): 33.5 ml EF(MOD-sp4): 56.9 % EF(MOD-sp2): 63.5 % EF(sp4-el): 58.4 % SV(MOD-sp4): 42.2 ml SV(MOD-sp2): 59.5 ml SV(sp4-el): 44.0 ml LA dimension(2D): 3.5 cm LA A4 area: 14.3 cm2 RA A4 area: 11.9 cm2 Doppler Measurements & Calculations MV E max deion: 68.3 cm/sec Lat Peak E' Deion: 11.3 cm/sec Med Peak E' Deion: 4.9 cm/sec MV A max deion: 94.0 cm/sec E/E' lat: 6.0 E/E' med: 14.1 MV E/A: 0.73 Ao V2 max: 135.5 cm/sec AI max deion: 338.0 cm/sec LV V1 max: 89.1 cm/sec Ao max P.3 mmHg AI max P.7 mmHg LV V1 max P.2 mmHg AI dec slope: 134.3 cm/sec2 AI P1/2t: 737.3 msec PA V2 max: 90.5 cm/sec TR max deion: 243.3 cm/sec TR max P.0 mmHg ECHO/Echo Complete Interpretation Summary Normal LV size. Left ventricular systolic function is normal. The estimated ejection fraction is 55 %. Structurally normal valves. The global longitudinal strain is normal. The globa l longitudinal strain = -17.9 % (normal). Ordering Physician: Caity Cote Referring Physician: Pablo Mejia Performed By: Izzy Jensen RDCS
== END | disposition home or self-care (01) ==
LOC: CVS 09:41
PROVIDERS: PCP Family Medicine; Visit Provider Nurse Practitioner
DX: C50.311 Malignant neoplasm of lower-inner quadrant of right female breast (principal); C79.51 Secondary malignant neoplasm of bone; Z17.0 Estrogen receptor positive status [ER+]; Z79.899 Other long term (current) drug therapy; Z51.81 Encounter for therapeutic drug level monitoring
CPT/HCPCS: 93306

== ENCOUNTER → 2022-06-25 | Outpatient (CLI) | payer MEDICARE, OTHER, SELFPAY ==
--- NOTE | 2022-06-25 13:43 | ECHOD_ITS ---
Version 2 Reason For Study: BONE METS Procedure This was a 2D Doppler, Color Flow transthoracic echocardiogram. Myocardial strain analysis was performed in this exam to aid in the assessment of cardiac function. Exam performed in department. Left Ventricle Normal LV size. Left ventricular systolic function is normal. The estimated ejection fraction is 65 %. Stage 1 diastolic dysfunction. No regional wall motion abnormalities noted. Right Ventricle Normal RV size. Normal systolic function. Atria Normal left atrium. Normal right atrium. Tricuspid Valve Normal tricuspid valve. Mild (1+) tricuspid valve insufficiency. Pulmonary artery systolic pressure is 31 mmHg. Aortic Valve Trisinus/trileaflet aortic valve. Mild (1+) aortic valve insufficiency. Pulmonic Valve Normal pulmonic valve. Great Vessels Normal aortic root. The pulmonary artery is normal size. Normal inferior vena cava. Pericardium/Pleural No pericardial effusion. MMode/2D Measurements & Calculations LVIDd: 4.2 cm IVSd: 1.1 cm Ao root diam: 3.3 cm LVIDs: 3.3 cm LVPWd: 0.91 cm RVDd: 3.3 cm FS: 21.3 % LAV(MOD-bp): 38.4 ml LVAd ap4: 24.7 cm2 SV(MOD-sp4): 42.3 ml LAV(MOD-bp) Indexed: 20.9 ml/m2 LVLd ap4: 7.1 cm LAV(MOD-sp2): 42.1 ml EDV(MOD-sp4): 73.3 ml LAV(MOD-sp4): 32.3 ml EDV(sp4-el): 72.8 ml LVAs ap4: 14.5 cm2 LVLs ap4: 6.3 cm ESV(MOD-sp4): 31.0 ml ESV(sp4-el): 28.4 ml EF(MOD-sp4): 57.7 % EF(sp4-el): 60.9 % SV(sp4-el): 44.4 ml LA dimension(2D): 4.0 cm LA A4 area: 15.5 cm2 RA A4 area: 12.1 cm2 Time Measurements MV dec time: 0.23 sec Doppler Measurements & Calculations MV E max deion: 74.5 cm/sec Lat Peak E' Deion: 15.2 cm/sec Med Peak E' Deion: 6.9 cm/sec MV A max deion: 87.1 cm/sec E/E' lat: 4.9 E/E' med: 10.7 MV E/A: 0.86 MV V2 max: 90.0 cm/sec Ao V2 max: 143.5 cm/sec MV max P.2 mmHg MV dec slope: 320.3 cm/sec2 Ao max P.2 mmHg MV V2 mean: 56.8 cm/sec Ao V2 mean: 100.0 cm/sec MV mean P.4 mmHg Ao mean P.6 mmHg MV V2 VTI: 32.3 cm Ao V2 VTI: 31.3 cm AV (velocity ratio): 0.83 LV V1 max: 107.5 cm/sec PA V2 max: 95.4 cm/sec TR max deion: 263.5 cm/sec LV V1 max P.6 mmHg PA V2 mean: 62.5 cm/sec TR max P.8 mmHg LV V1 mean P.4 mmHg LV V1 mean: 72.5 cm/sec LV V1 VTI: 25.9 cm ECHO/Echo Complete Interpretation Summary Normal LV size. Left ventricular systolic function is normal. The estimated ejection fraction is 65 %. Stage 1 diastolic dysfunction. Mild (1+) tricuspid valve insufficiency. The global longitudinal strain is borderline abnormal. The global longitudinal strain = -16.5% (abnormal). Ordering Physician: Caity Cote Referring Physician: Mitch Mejia Performed By: Amber Lou RCS
== END | disposition home or self-care (01) ==
LOC: CVS 13:35
PROVIDERS: PCP Family Medicine; Visit Provider Nurse Practitioner
DX: Z79.899 Other long term (current) drug therapy (principal); C79.51 Secondary malignant neoplasm of bone; C78.01 Secondary malignant neoplasm of right lung; C78.02 Secondary malignant neoplasm of left lung; C79.2 Secondary malignant neoplasm of skin; C50.311 Malignant neoplasm of lower-inner quadrant of right female breast; Z17.0 Estrogen receptor positive status [ER+]; Z51.81 Encounter for therapeutic drug level monitoring
CPT/HCPCS: 93306

== ENCOUNTER → 2022-11-03 | Outpatient (CLI) | payer MEDICARE, OTHER, SELFPAY ==
--- NOTE | 2022-11-03 07:29 | ECHOD_ITS ---
Reason For Study: HCC Procedure This was a 2D Doppler, Color Flow transthoracic echocardiogram. Myocardial strain analysis was performed in this exam to aid in the assessment of cardiac function. Exam performed in department. Left Ventricle Normal LV size. Left ventricular systolic function is normal. The estimated ejection fraction is 60 %. Stage 1 diastolic dysfunction. No regional wall motion abnormalities noted. Right Ventricle Normal RV size. Normal systolic function. Atria Normal left atrium. Normal right atrium. Aortic Valve Trisinus/trileaflet aortic valve. Mild (1+) aortic valve insufficiency. Pulmonic Valve Normal pulmonic valve. Great Vessels Normal aortic root. The pulmonary artery is normal size. Normal inferior vena cava. Pericardium/Pleural No pericardial effusion. MMode/2D Measurements & Calculations LVIDd: 4.4 cm IVSd: 0.84 cm Ao root diam: 3.1 cm LVIDs: 3.6 cm LVPWd: 0.95 cm RVDd: 2.4 cm FS: 18.1 % LAV(MOD-bp): 38.6 ml SV(MOD-sp4): 39.2 ml LVAd ap4: 25.3 cm2 LAV(MOD-bp) Indexed: 21.1 ml/m2 LVLd ap4: 8.0 cm LAV(MOD-sp2): 38.2 ml EDV(MOD-sp4): 69.7 ml LAV(MOD-sp4): 39.1 ml EDV(sp4-el): 68.4 ml LVAs ap4: 14.8 cm2 LVLs ap4: 6.7 cm ESV(MOD-sp4): 30.4 ml ESV(sp4-el): 27.7 ml EF(MOD-sp4): 56.3 % EF(sp4-el): 59.5 % SV(sp4-el): 40.7 ml LA dimension(2D): 4.0 cm LA A4 area: 15.7 cm2 RA A4 area: 13.8 cm2 Time Measurements MV dec time: 0.27 sec Doppler Measurements & Calculations MV E max deion: 84.9 cm/sec Lat Peak E' Deion: 11.4 cm/sec Med Peak E' Deion: 8.8 cm/sec MV A max deion: 91.2 cm/sec E/E' lat: 7.4 E/E' med: 9.7 MV E/A: 0.93 MV V2 max: 102.5 cm/sec Ao V2 max: 148.4 cm/sec MV max P.2 mmHg MV dec slope: 317.8 cm/sec2 Ao max P.8 mmHg MV V2 mean: 70.1 cm/sec Ao V2 mean: 100.8 cm/sec MV mean P.2 mmHg Ao mean P.6 mmHg MV V2 VTI: 43.3 cm Ao V2 VTI: 34.4 cm AV (velocity ratio): 0.78 AI max deion: 340.9 cm/sec LV V1 max: 113.7 cm/sec PA V2 max: 74.8 cm/sec AI max P.5 mmHg LV V1 max P.2 mmHg PA V2 mean: 44.4 cm/sec AI dec slope: 140.5 cm/sec2 LV V1 mean P.7 mmHg AI P1/2t: 710.5 msec LV V1 mean: 76.7 cm/sec LV V1 VTI: 26.8 cm ECHO/Echo Complete Interpretation Summary Normal LV size. Left ventricular systolic function is normal. The estimated ejection fraction is 60 %. Stage 1 diastolic dysfunction. The global longitudinal strain is normal. The global longitudinal strain = -18. 3 % (normal). Ordering Physician: Rip Rivers Referring Physician: Rip Rivers Performed By: Amber Lou RCS
== END | disposition home or self-care (01) ==
LOC: CVS 07:28
PROVIDERS: PCP Family Medicine; Referring Provider Internal Medicine Hematology & Oncology; Visit Provider Internal Medicine Hematology & Oncology
DX: T45.1X5A Adverse effect of antineoplastic and immunosuppressive drugs, initial encounter (principal); I42.7 Cardiomyopathy due to drug and external agent
CPT/HCPCS: 93306

== ENCOUNTER → 2023-01-28 | Outpatient (CLI) | payer MEDICARE, OTHER, SELFPAY ==
--- NOTE | 2023-01-28 09:40 | ECHOD_ITS ---
Reason For Study: Breast CA, Assess LV function Procedure This was a 2D Doppler, Color Flow transthoracic echocardiogram. Myocardial strain analysis was performed in this exam to aid in the assessment of cardiac function. Exam performed in department. Left Ventricle Normal LV size. Left ventricular systolic function is normal. The estimated ejection fraction is 55 %. Stage 1 diastolic dysfunction. No regional wall motion abnormalities noted. Right Ventricle Normal RV size. Normal systolic function. Atria Normal left atrium. Normal right atrium. Mitral Valve Normal mitral valve. Tricuspid Valve Normal tricuspid valve. Mild (1+) tricuspid valve insufficiency. Pulmonary artery systolic pressure is 30 mmHg. Great Vessels Normal aortic root. The pulmonary artery is normal size. Normal inferior vena cava. Pericardium/Pleural No pericardial effusion. MMode/2D Measurements & Calculations LVIDd: 4.0 cm IVSd: 0.89 cm Ao root diam: 3.3 cm LVIDs: 2.7 cm LVPWd: 0.85 cm RVDd: 3.4 cm FS: 32.2 % LAV(MOD-bp): 37.8 ml LVAd ap4: 28.7 cm2 LVAd ap2: 30.0 cm2 LAV(MOD-bp) Indexed: 20.6 ml/m2 LVLd ap4: 7.9 cm LVLd ap2: 8.2 cm LAV(MOD-sp2): 52.0 ml EDV(MOD-sp4): 86.1 ml EDV(MOD-sp2): 93.9 ml LAV(MOD-sp4): 24.5 ml EDV(sp4-el): 88.4 ml EDV(sp2-el): 93.3 ml LVAs ap4: 18.4 cm2 LVAs ap2: 18.2 cm2 LVLs ap4: 7.0 cm LVLs ap2: 7.1 cm ESV(MOD-sp4): 42.3 ml ESV(MOD-sp2): 39.9 ml ESV(sp4-el): 41.0 ml ESV(sp2-el): 39.7 ml EF(MOD-sp4): 50.8 % EF(MOD-sp2): 57.5 % EF(sp4-el): 53.6 % SV(MOD-sp4): 43.7 ml SV(MOD-sp2): 54.0 ml SV(sp4-el): 47.4 ml LA A4 area: 12.0 cm2 LA dimension(2D): 4.2 cm RA A4 area: 14.6 cm2 TAPSE: 2.4 cm Time Measurements MV dec time: 0.28 sec Doppler Measurements & Calculations MV E max deion: 85.3 cm/sec Lat Peak E' Deion: 9.1 cm/sec Med Peak E' Deion: 6.4 cm/sec MV A max deion: 89.4 cm/sec E/E' lat: 9.4 E/E' med: 13.3 MV E/A: 0.95 MV dec slope: 301.4 cm/sec2 Ao V2 max: 130.6 cm/sec AI max deion: 364.6 cm/sec Ao max P.8 mmHg AI max P.2 mmHg Ao V2 mean: 87.1 cm/sec AI dec slope: 123.8 cm/sec2 Ao mean P.5 mmHg AI P1/2t: 862.8 msec Ao V2 VTI: 32.2 cm AV (velocity ratio): 0.71 LV V1 max: 106.9 cm/sec PA V2 max: 123.0 cm/sec TR max deion: 253.4 cm/sec LV V1 max P.6 mmHg TR max P.7 mmHg LV V1 mean P.4 mmHg LV V1 mean: 72.2 cm/sec LV V1 VTI: 22.8 cm ECHO/Echo Complete Interpretation Summary Normal LV size. Left ventricular systolic function is normal. The estimated ejection fraction is 55 %. Stage 1 diastolic dysfunction. The global longitudinal strain is normal. The global longitudinal strain = -20. 3 % (normal). Ordering Physician: Rip Rivers Referring Physician: Mitch Mejia Performed By: Izzy Jensen RDCS
== END | disposition home or self-care (01) ==
LOC: CVS 09:39
PROVIDERS: PCP Family Medicine; Referring Provider Internal Medicine Hematology & Oncology; Visit Provider Internal Medicine Hematology & Oncology
DX: C50.311 Malignant neoplasm of lower-inner quadrant of right female breast (principal); C78.01 Secondary malignant neoplasm of right lung; C78.02 Secondary malignant neoplasm of left lung; C79.2 Secondary malignant neoplasm of skin; C50.911 Malignant neoplasm of unspecified site of right female breast; Z17.0 Estrogen receptor positive status [ER+]; Z51.81 Encounter for therapeutic drug level monitoring; Z79.899 Other long term (current) drug therapy
CPT/HCPCS: 93306

== ENCOUNTER 2023-02-16 18:08 | Observation (INO) | payer MEDICARE, OTHER, SELFPAY ==
[2023-02-16] VITALS (7 sets, daily range): BP systolic 140–152; BP diastolic 65–69; PULSE 57–60; RESP 18–22; TEMP 36.1–36.6; O2SAT 95–99; BMI 36.1
--- NOTE | 2023-02-16 19:11 | EKG12_ITS ---
Test Reason : SOB Blood Pressure : / mmHG Vent. Rate : 058 BPM Atrial Rate : 058 BPM P-R Int : 208 ms QRS Dur : 084 ms QT Int : 446 ms P-R-T Axes : 005 -34 020 degrees QTc Int : 437 ms Sinus bradycardia Left axis deviation Abnormal ECG Confirmed by ALEXIA RG, SHANNON ([id number]), editor school photograph HOWARD HATCH ([id number]) on 02/17/2023 1:27:51 PM Referred By: Confirmed By:SHANNON HALE MD
--- NOTE | 2023-02-16 19:12 | ED.VIS.DYS ---
HPI History of Present Illness Chief Complaint: Shortness of Breath Detail of Chief Complaint: Shortness of breath Informant: patient Narrative Narrative: Patient presents with progressive shortness of breath over the last 2 weeks especially with exertion. She denies any chest pain. Patient currently being treated for metastatic breast cancer with mets to the lung. Her last chemo was January 13. Patient was advised by her oncologist to get evaluated in with concern for possible PE or pneumonitis related to her chemo. Patient denies any chest pain. She had no fever. She denies significant cough. [facility] Medical History (Updated 02/16/23 @ 23:[address] Gurvinder Dill, DO) Breast cancer metastasized to bone Breast cancer metastasized to lung Breast cancer, right breast Chemotherapy management, encounter for Non-ischemic cardiomyopathy Obesity Home Medications naproxen sodium 220 mg capsule 220 mg PO Q8H PRN PRN Pain Or Fever 03/29/19 [History Last Taken Unknown] loperamide 2 mg capsule (Imodium A-D) 2 mg PO Q6H PRN 01/22/20 [History Last Taken Unknown] loratadine 10 mg tablet (Claritin) 10 mg PO DAILY 01/22/20 [History Last Taken Unknown] metoprolol tartrate 25 mg tablet 25 mg PO BID 01/22/20 [History Last Taken Unknown] pregabalin 150 mg capsule 150 mg PO BID 09/15/21 [History Last Taken Unknown] multivitamin 1 tab PO DAILY 11/26/22 [History Last Taken Unknown] losartan 100 mg tablet 100 mg PO QDAY HTN #90 tabs 01/20/23 [Rx Last Taken Unknown] acetaminophen 325 mg tablet (Tylenol) 325 mg PO DAILY 02/16/23 [History Last Taken Unknown] diphenhydramine HCl 25 mg capsule (Benadryl) 25 mg PO QHS 02/16/23 [History Last Taken Unknown] Allergy/AdvReac Type Severity Reaction Status Date / Time acetaminophen [From Percocet] Allergy hives and Verified 11/26/22 11:36 nausea amoxicillin Allergy Fever and Verified 11/26/22 11:36 skin rash Cephalosporins Allergy Fever and Verified 11/26/22 11:36 skin rash ciprofloxacin [From Cipro] Allergy Fever and Verified 11/26/22 11:36 skin rash codeine Allergy Fever and Verified 11/26/22 11:36 skin rash erythromycin base Allergy Fever and Verified 11/26/22 11:36 skin rash hydrocodone [From Elida] Allergy hives and Verified 11/26/22 11:36 nausea latex Allergy Rash Verified 11/26/22 11:36 nalbuphine [From Nubain] Allergy Fever and Verified 11/26/22 11:36 skin rash oxycodone [From Percocet] Allergy hives and Verified 11/26/22 11:36 nausea prednisone Allergy hives Verified 11/26/22 11:36 with blood underneath Sulfa (Sulfonamide Allergy Fever and Verified 11/26/22 11:36 Antibiotics) skin rash aspirin AdvReac stomach Verified 11/26/22 11:36 bleed AND DARK STOOL Food Allergies: Uncoded AdvReac migraine Verified 11/30/22 13:03 meperidine [From Demerol] AdvReac Upset Verified 11/26/22 11:36 Stomach Family History Sister A-fib CAD (coronary artery disease) Grandmother A-fib Surgical History History of appendectomy History of lumpectomy of right breast History of right mastectomy Social History Smoking Status: Never smoker alcohol intake: never substance use type: does not use caffeine: No what type of physical activity do you participate in: none seatbelt use: always do you feel safe at home: Yes ROS ROS ED Review of Systems ROS Unobtainable: other Constitutional Constitutional ED: Reports lethargy; Denies chills, fever(s), sweats or weight loss Eyes Eyes: Denies blurry vision, change in vision or diplopia ENT ENT ED: Denies rhinorrhea or sore throat Cardiovascular Cardiovascular: Denies chest pain, orthopnea or racing heartbeat Respiratory/Chest Respiratory/Chest: Reports dyspnea and dyspnea on exertion; Denies cough, orthopnea or sputum Gastrointestinal Gastrointestinal: Denies abdominal pain, diarrhea, nausea or vomiting Genitourinary Genitourinary ED: Denies dysuria, hematuria or urinary frequency Musculoskeletal Musculoskeletal: Denies arthralgias, back pain, myalgias or neck pain Integumentary Denies abscess, Abrasions or rash Neurologic Neurologic: Denies headache(s) or weakness Psychiatric Psychiatric: Denies anxiety, depression or suicidal thoughts Endocrine Endocrinology: Denies polydipsia, polyphagia or polyuria Hematologic/Lymphatic Hematologic/Lymphatic: Denies easy bleeding, easy bruising or lymphadenopathy Allergic/Immunologic Allergic/Immunologic ED: Denies mouth swelling, tongue swelling or urticaria EXAM Physical Exam Narrative Exam Narrative: Patient presents with progressive exertional dyspnea. In the differential would be PE versus pneumonitis versus CHF or acute coronary syndrome. I feel acute coronary syndrome less likely. Const Vital Signs: 02/16/23 18:09 02/16/23 18:54 02/16/23 19:11 Temperature 97.0 F L Temperature Source Temporal Pulse Rate 60 Respiratory Rate 18 Respiratory Effort Normal Non-Labored Respiratory Depth Normal Respiratory Pattern Normal Blood Pressure 140/65 H Blood Pressure Mean 90 Pulse Ox 95 98 Oxygen Delivery Method Room Air Room Air Room Air 02/16/23 20:09 02/16/23 21:35 02/16/23 22:50 Temperature Temperature Source Pulse Rate 58 L 57 L 59 L Respiratory Rate 22 H 20 H 20 H Respiratory Effort Respiratory Depth Respiratory Pattern Blood Pressure 152/68 H 150/66 H 141/66 H Blood Pressure Mean 96 94 91 Pulse Ox 99 96 99 Oxygen Delivery Method Room Air Room Air Room Air Positive well nourished and well developed General Appearance ED: well developed and NAD HEENT Reports TM's clear and moist mucous membranes normocephalic and atraumatic; Negative for trauma or tenderness Tympanic Membrane ED: Yes TM's clear Eyes PERRL and EOMs intact bilaterally General Eye ED: Negative for pale conjunctiva or scleral icterus Neck no lymphadenopathy, supple and no JVD General: Negative for tenderness Chest Wall inspection of chest normal and palpation of chest normal Chest: Negative for tenderness Resp normal respiratory effort and clear to auscultation bilaterally Effort and Inspection: Negative for respiratory distress or pain with movement Auscultation: Negative for rhonchi, wheezes or diminished lung sounds Cardio regular rate, regular rhythm, S1 normal heart sound, S2 normal heart sound and no murmurs Peripheral Pulses: pulses 2+ throughout GI normal to inspection, nondistended, normoactive bowel sounds, soft to palpation, non-tender, non-distended and no masses Back/Spine no CVA tenderness and no thoracic nor lumbar tenderness Extremity normal to inspection General Extremety ED: Negative for edema General Extremity: Negative for edema Neuro oriented x3, CN's II-XII intact bilaterally, no sensory deficits noted and gait normal Sensorium / Orientation: awake, alert, oriented to person, oriented to place and oriented to time Motor Exam: strength 5/5 throughout and strength abnormal Psych mental status grossly normal Skin no rashes or lesions noted and no wounds MDM MDM MDM Narrative Medical decision making narrative: Patient with 2-week history of progressive exertional dyspnea with history of breast cancer with metastasis to the lung. Patient's oncologist concerned about possibility for PE or pneumonitis related to the chemotherapy. I was asked to obtain a CT of the chest to rule out PE. On arrival IV line established. Patient placed on potline monitor. EKG obtained showed a sinus rhythm with a rate of 58 bpm with no acute ST segment changes. CBC with differential white count 4.7 with hemoglobin 12.7 and platelet count of 115. Chemistries unremarkable. Troponin normal at 9 and BNP was normal at 93. Nursing staff could not obtain peripheral IV to perform CTA. Patient does have a PowerPort which was accessed and while in CT the tech was having issues injecting through the port and became concerned that there would not be an adequate study and there was concern that there might be damage to the port. This point I had a discussion with the patient and she would like to try to go home and follow-up with [facility] because they have always accessed her port and given her IV contrast to perform CTs every several months. I discussed with Dr. Rpi Rivers and he is concerned that he may not be able to get a scan tomorrow based on availability as an outpatient. I did do a D-dimer and it was elevated at 0.77. We obtained a CT scan without contrast to rule out pneumonitis Dr. Rivers's request. This did not show any evidence of pneumonitis. This point recommended admission for possible repeat attempt at CTA tomorrow versus VQ scan to rule out PE. I did give patient one-time dose of Lovenox. Will discuss case with hospitalist. Lab Data Attestation: I reviewed the patient's lab results. Labs: Laboratory Results - last 24 hr 02/16/23 02/16/23 02/16/23 19:30 19:30 20:20 WBC Cancelled 4.7 Corrected WBC Cancelled RBC Cancelled 3.53 L Hgb Cancelled 12.7 Hct Cancelled 39.3 MCV Cancelled 111.3 H MCH Cancelled 36.0 H MCHC Cancelled 32.3 RDW Std Deviation Cancelled 59.1 H RDW Coeff of Martin Cancelled 14.3 Plt Count Cancelled 115 L MPV Cancelled 10.5 Immature Gran % (Auto) Cancelled 0.200 Neut % (Auto) Cancelled 58.7 Lymph % (Auto) Cancelled 24.5 [place] % (Auto) Cancelled 10.8 H Eos % (Auto) Cancelled 5.2 H Baso % (Auto) Cancelled 0.6 Absolute Neuts (auto) Cancelled 2.7 Absolute Lymphs (auto) Cancelled 1.14 Total Counted Cancelled Neutrophils % (Manual) Cancelled Band Neutrophils % Cancelled Lymphocytes % (Manual) Cancelled Monocytes % (Manual) Cancelled Eosinophils % (Manual) Cancelled Basophils % (Manual) Cancelled Metamyelocytes % Cancelled Myelocytes % Cancelled Promyelocytes % Cancelled Blast Cells % Cancelled Plasma Cell % (Manual) Cancelled Other Cells % Cancelled Nucleated RBC % Cancelled 0 Nucleated RBCs/100 WBC Cancelled Differential Comment Cancelled Diff Path Review Cancelled Hypersegmented Neuts Cancelled Atypical Lymphocytes Cancelled Reactive Lymphocytes Cancelled Smudge Cells Cancelled Toxic Granulation Cancelled Toxic Vacuolation Cancelled Dohle Bodies Cancelled Anuel Rods Cancelled Platelet Estimate Cancelled Plt Morphology Comment Cancelled RBC Morphology Cancelled Cancelled Polychromasia Cancelled Hypochromasia Cancelled Poikilocytosis Cancelled Basophilic Stippling Cancelled Anisocytosis Cancelled Microcytosis Cancelled Macrocytosis Cancelled Spherocytes Cancelled Sickle Cells Cancelled Target Cells Cancelled Tear Drop Cells Cancelled Ovalocytes Cancelled Stomatocytes Cancelled [place] Bodies Cancelled [place] Cells Cancelled Bite Cells Cancelled Crenated Cell Cancelled Acanthocytes (Spur) Cancelled Rouleaux Cancelled Schistocytes Cancelled D-Dimer Quant (PE/DVT) Sodium 143 Potassium 4.4 Chloride 109 H Carbon Dioxide 31.0 Anion Gap 3 L BUN 12 Creatinine 0.91 Estim Creat Clear Calc 44.03 Est GFR (MDRD) Af Amer 78 Est GFR (MDRD) Non-Af 65 BUN/Creatinine Ratio 13.1 Glucose 90 Calcium 9.6 Troponin I High Sens 9 B-Natriuretic Peptide 92.8 02/16/23 21:05 WBC Corrected WBC RBC Hgb Hct MCV MCH MCHC RDW Std Deviation RDW Coeff of Martin Plt Count MPV Immature Gran % (Auto) Neut % (Auto) Lymph % (Auto) [place] % (Auto) Eos % (Auto) Baso % (Auto) Absolute Neuts (auto) Absolute Lymphs (auto) Total Counted Neutrophils % (Manual) Band Neutrophils % Lymphocytes % (Manual) Monocytes % (Manual) Eosinophils % (Manual) Basophils % (Manual) Metamyelocytes % Myelocytes % Promyelocytes % Blast Cells % Plasma Cell % (Manual) Other Cells % Nucleated RBC % Nucleated RBCs/100 WBC Differential Comment Diff Path Review Hypersegmented Neuts Atypical Lymphocytes Reactive Lymphocytes Smudge Cells Toxic Granulation Toxic Vacuolation Dohle Bodies Anuel Rods Platelet Estimate Plt Morphology Comment RBC Morphology Polychromasia Hypochromasia Poikilocytosis Basophilic Stippling Anisocytosis Microcytosis Macrocytosis Spherocytes Sickle Cells Target Cells Tear Drop Cells Ovalocytes Stomatocytes [place] Bodies [place] Cells Bite Cells Crenated Cell Acanthocytes (Spur) Rouleaux Schistocytes D-Dimer Quant (PE/DVT) 0.77 H* Sodium Potassium Chloride Carbon Dioxide Anion Gap BUN Creatinine Estim Creat Clear Calc Est GFR (MDRD) Af Amer Est GFR (MDRD) Non-Af BUN/Creatinine Ratio Glucose Calcium Troponin I High Sens B-Natriuretic Peptide Radiography Chest X-Ray - ED: 1 View Diagnostic Testing: Clinical Impression(s) from Imaging Studies Chest X-Ray 02/16/23 21:20 IMPRESSION: No active disease. Electronically Signed: Jacob Dunn MD at 21:48 EDT , Chest CT 02/16/23 22:02 IMPRESSION: 1. 8 mm noncalcified left upper lobe nodule and correlation with prior studies, follow-up CT, PET CT would be useful. 2. Sclerotic lesion of the manubrium and correlation with prior studies or bone scan may be useful. 3. Small hiatal hernia. 4. Severe levoscoliosis of the thoracolumbar spine with deformity of the chest and abdomen. Electronically Signed: Jacob Dunn MD at 22:49 EDT , 1 view chest x-ray obtained interpreted by myself as no evidence of infiltrate or pneumothorax or acute disease process. There was a port in the left chest. Radiology in agreement. EKG Initial EKG: Attestation: I personally reviewed and interpreted this EKG as follows: Comments: Sinus rhythm with a rate of 58 bpm with no acute ST segment changes Discharge Plan Dx/Rx/DC Orders Clinical Impression: Acute dyspnea, Elevated d-dimer, Breast cancer metastasized to lung Disposition Disposition: Acute Care [facility]
[2023-02-16 19:52] LABS: Anion Gap 3 (5-15); BNP,B-Type NATRIURETIC PEPTIDE 92.8 pg/mL (0-100); BUN 12 mg/dL (7-18); BUN/Creat Ratio 13.1 RATIO (10-20); Calcium,Total 9.6 mg/dL (8.5-10.1); Chloride 109 mmol/L (98-107); Creatinine, Serum 0.91 mg/dL (0.55-1.02); EST Glomerular Filtration Rate 65 mL/min (>60); Est Glom Filt Rate - Afr Amer 78 mL/min (>60); Estimated Creatinine Clearance 44.03 ml/min; Glucose 90 mg/dL (74-106); Potassium 4.4 mmol/L (3.5-5.1); Sodium Level 143 mmol/L (136-145); Troponin-I HS 9 pg/mL (3.0-54.0)
[2023-02-16 20:27] LABS: Absolute Lymphocyte Count 1.14 X10^3/uL (0.83-4.51); Absolute Neutrophil Count 2.7 X10^3/uL (2.0-7.7); Basophil# 0.03 X10^3/uL; Basophil% 0.6 % (0-1); Eosinophil# 0.24 X10^3/uL; Eosinophils% 5.2 % (0-5); Hematocrit 39.3 % (37-47); Hemoglobin 12.7 g/dL (12.0-15.0); Lymphocyte # 1.14 X10^3/ul (0.83-4.51); Lymphocyte % 24.5 % (19-41); Mean Corp Hgb Conc 32.3 g/dL (32-36); Mean Corpuscular Volume 111.3 fL (81-99); Mean Platelet Vol. 10.5 fl (6.2-12.0); Monocyte% 10.8 % (0-10); NRBC Flagged by Analyzer 0 % (0-5); Neutrophil # 2.73 X10^3/uL (2.7-7.7); Neutrophil % 58.7 % (47-70); Platelet Count 115 K/mm3 (150-450); RBC Distribution Width CV 14.3 % (11.6-14.6); RBC Distribution Width SD 59.1 fl (35.1-43.9); Red Blood Count 3.53 M/mm3 (4.2-5.4); White Blood Count 4.7 K/mm3 (4.4-11.0)
--- NOTE | 2023-02-16 21:20 | RAD_ITS ---
STUDY: X-RAY CHEST REASON FOR EXAM: Female, 67 years old. dyspnea TECHNIQUE: Single AP portable view of the chest. COMPARISON: 05/07/2019 FINDINGS: Left subclavian chest port which is unchanged. The lungs are clear and expanded. Elevated right hemidiaphragm which is unchanged. Normal size heart. Normal mediastinum and jenny. Normal visualized pulmonary arteries. Normal visualized aortic arch and descending thoracic aorta. Moderate S-shaped scoliosis with dextroscoliosis thoracic spine. Normal visualized ribs, clavicles, and shoulders. There is no demonstrated abnormality of the visualized soft tissue structures of the upper abdomen. RAD/Chest 1 View (Portable) IMPRESSION: No active disease. Electronically Signed: Jacob Dunn MD at 21:48 EDT ,
[2023-02-16 21:31] LABS: D-Dimer Quantitative (DVT/PE) 0.77 FEU/ug/m (0.27-0.49)
--- NOTE | 2023-02-16 22:02 | CT_ITS ---
INDICATION: dyspnea EXAMINATION: CT CHEST WITHOUT CONTRAST - CT Chest W/O Contrast Injection TECHNIQUE: Helically acquired images were obtained of the chest. A radiation dose optimization technique was used for this scan. IV Contrast dosage and agent: None. COMPARISON: Chest x-ray earlier today FINDINGS: Left subclavian chest port. Status post right mastectomy. LUNGS, PLEURA AND LARGE AIRWAYS: 8 mm noncalcified nodule in the periphery of the left upper lobe of the lungs and follow-up and CT in 3 months or PET/CT may be useful No pleural effusion or thickening. No pneumothorax. THYROID: No thyroid lesions. HEART AND PERICARDIUM: Heart size is normal. No pericardial effusion. CORONARY ARTERIES: Coronary artery calcification is not seen. VESSELS: Thoracic aorta is not dilated. MEDIASTINUM AND TAMIKA: No mediastinal or hilar adenopathy. Esophagus is unremarkable. Small hiatal hernia. UPPER ABDOMEN: No acute pathology. BONES: Severe levoscoliosis of the thoracolumbar spine. Large sclerotic lesion of the manubrium. CT/Chest without Contrast IMPRESSION: 1. 8 mm noncalcified left upper lobe nodule and correlation with prior studies, follow-up CT, PET CT would be useful. 2. Sclerotic lesion of the manubrium and correlation with prior studies or bone scan may be useful. 3. Small hiatal hernia. 4. Severe levoscoliosis of the thoracolumbar spine with deformity of the chest and abdomen. Electronically Signed: Jacob uDnn MD at 22:49 EDT ,
--- NOTE | 2023-02-16 23:30 | PCM.HP.STD ---
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 Patient was sent to the emergency department by her oncologist Dr. Rivers. Patient reports worsening of chronic neuropathy pain in her bilateral fingers. At the emergency department patient her port could not be assessed and it is very difficult to find veins for her. Attempts to do a CTA of her chest was subsequently canceled. D-dimer came back elevated. The concern was that the patient may be having a pneumonitis from chemotherapy or PE. CT scan did not show pneumonitis. ED physician discussed case with Dr. Rivers who recommend theat patient stays for a VQ scan or an attempt to assess her port. Of note patient is scheduled to begin radiation on 02/21/2023. Because her current chemotherapy did not work well with previous radiation; her chemo has been on hold since January 13, 2023. [facility] Medical History Breast cancer metastasized to bone Breast cancer metastasized to lung Breast cancer, right breast Chemotherapy management, encounter for Non-ischemic cardiomyopathy Obesity Home Medications naproxen sodium 220 mg capsule 220 mg PO Q8H PRN PRN Pain Or Fever 03/29/19 [History Last Taken Unknown] metoprolol tartrate 25 mg tablet 25 mg PO BID 01/22/20 [History Last Taken Unknown] pregabalin 150 mg capsule 150 mg PO BID 09/15/21 [History Last Taken Unknown] multivitamin 1 tab PO DAILY 11/26/22 [History Last Taken Unknown] losartan 100 mg tablet 100 mg PO QDAY HTN #90 tabs 01/20/23 [Rx Last Taken Unknown] diphenhydramine HCl 25 mg capsule (Benadryl) 25 mg PO QHS 02/16/23 [History Last Taken Unknown] acetaminophen 500 mg capsule 500 mg PO .COMPLEX 02/17/23 [History Last Taken Unknown] Allergy/AdvReac Type Severity Reaction Status Date / Time acetaminophen [From Percocet] Allergy hives and Verified 11/26/22 11:36 nausea amoxicillin Allergy Fever and Verified 11/26/22 11:36 skin rash Cephalosporins Allergy Fever and Verified 11/26/22 11:36 skin rash ciprofloxacin [From Cipro] Allergy Fever and Verified 11/26/22 11:36 skin rash codeine Allergy Fever and Verified 11/26/22 11:36 skin rash erythromycin base Allergy Fever and Verified 11/26/22 11:36 skin rash hydrocodone [From [place]] Allergy hives and Verified 11/26/22 11:36 nausea latex Allergy Rash Verified 11/26/22 11:36 nalbuphine [From Nubain] Allergy Fever and Verified 11/26/22 11:36 skin rash oxycodone [From Percocet] Allergy hives and Verified 11/26/22 11:36 nausea prednisone Allergy hives Verified 11/26/22 11:36 with blood underneath Sulfa (Sulfonamide Allergy Fever and Verified 11/26/22 11:36 Antibiotics) skin rash aspirin AdvReac stomach Verified 11/26/22 11:36 bleed AND DARK STOOL Food Allergies: Uncoded AdvReac migraine Verified 11/30/22 13:03 meperidine [From Demerol] AdvReac Upset Verified 11/26/22 11:36 Stomach Family History Sister A-fib CAD (coronary artery disease) Grandmother A-fib Surgical History History of appendectomy History of lumpectomy of right breast History of right mastectomy Social History Smoking Status: Never smoker alcohol intake: never substance use type: does not use caffeine: No what type of physical activity do you participate in: none seatbelt use: always do you feel safe at home: Yes ROS ROS Narrative Pertinent positives and pertinent negatives as noted in HPI. All other systems were reviewed and are negative Vital Signs Vital Signs Vital Signs: 02/16/23 18:09 02/16/23 18:54 02/16/23 19:11 Temperature 97.0 F L Temperature Source Temporal Pulse Rate 60 Respiratory Rate 18 Respiratory Effort Normal Non-Labored Respiratory Depth Normal Respiratory Pattern Normal Blood Pressure 140/65 H Blood Pressure Mean 90 Pulse Ox 95 98 Oxygen Delivery Method Room Air Room Air Room Air 02/16/23 20:09 02/16/23 21:35 02/16/23 22:50 Temperature Temperature Source Pulse Rate 58 L 57 L 59 L Respiratory Rate 22 H 20 H 20 H Respiratory Effort Respiratory Depth Respiratory Pattern Blood Pressure 152/68 H 150/66 H 141/66 H Blood Pressure Mean 96 94 91 Pulse Ox 99 96 99 Oxygen Delivery Method Room Air Room Air Room Air Weight Weight: 86.727 kg Body Mass Index (BMI) 36.1 Physical Exam Narrative Physical exam: General: Well-nourished, well-developed. Head: Normocephalic, atraumatic, no tenderness Eyes: Vision is grossly intact. EOMI ENT, no trauma, moist mucous membranes, no rhinorrhea Neck: Nontender, No thyromegaly. CVS: Regular rate and rhythm. S1-S2 present. No murmur, gallop or rub. Respiratory : Right mastectomy. Approaching left upper chest. Lungs diminished. Abdomen: Soft, nontender, nondistended, normal bowel sounds, no masses : Deferred Back: Nontender, no CVA tenderness. Extremities: Nontender full range of motion, no trauma Skin: Normal color, no trauma, abrasions Neuro: Alert, oriented, cranial nerves II through XII grossly intact. Psychiatry: Normal mood. Normal affect. Not depressed. Not anxious. Results Lab / Micro Data 02/16/23 20:20 02/16/23 19:30 Labs: Laboratory Results - last 24 hr 02/16/23 19:30: WBC Cancelled, Corrected WBC Cancelled, RBC Cancelled, Hgb Cancelled, Hct Cancelled, MCV Cancelled, MCH Cancelled, MCHC Cancelled, RDW Std Deviation Cancelled, RDW Coeff of Martin Cancelled, Plt Count Cancelled, MPV Cancelled, Immature Gran % (Auto) Cancelled, Neut % (Auto) Cancelled, Lymph % (Auto) Cancelled, [place] % (Auto) Cancelled, Eos % (Auto) Cancelled, Baso % (Auto) Cancelled, Absolute Neuts (auto) Cancelled, Absolute Lymphs (auto) Cancelled, Total Counted Cancelled, Neutrophils % (Manual) Cancelled, Band Neutrophils % Cancelled, Lymphocytes % (Manual) Cancelled, Monocytes % (Manual) Cancelled, Eosinophils % (Manual) Cancelled, Basophils % (Manual) Cancelled, Metamyelocytes % Cancelled, Myelocytes % Cancelled, Promyelocytes % Cancelled, Blast Cells % Cancelled, Plasma Cell % (Manual) Cancelled, Other Cells % Cancelled, Nucleated RBC % Cancelled, Nucleated RBCs/100 WBC Cancelled, Differential Comment Cancelled, Diff Path Review Cancelled, Hypersegmented Neuts Cancelled, Atypical Lymphocytes Cancelled, Reactive Lymphocytes Cancelled, Smudge Cells Cancelled, Toxic Granulation Cancelled, Toxic Vacuolation Cancelled, Dohle Bodies Cancelled, Anuel Rods Cancelled, Platelet Estimate Cancelled, Plt Morphology Comment Cancelled, RBC Morphology Cancelled 02/16/23 19:30: RBC Morphology Cancelled, Polychromasia Cancelled, Hypochromasia Cancelled, Poikilocytosis Cancelled, Basophilic Stippling Cancelled, Anisocytosis Cancelled, Microcytosis Cancelled, Macrocytosis Cancelled, Spherocytes Cancelled, Sickle Cells Cancelled, Target Cells Cancelled, Tear Drop Cells Cancelled, Ovalocytes Cancelled, Stomatocytes Cancelled, [place] Bodies Cancelled, [place] Cells Cancelled, Bite Cells Cancelled, Crenated Cell Cancelled, Acanthocytes (Spur) Cancelled, Rouleaux Cancelled, Schistocytes Cancelled, Sodium 143, Potassium 4.4, Chloride 109 H, Carbon Dioxide 31.0, Anion Gap 3 L, BUN 12, Creatinine 0.91, Estim Creat Clear Calc 44.03, Est GFR (MDRD) Af Amer 78, Est GFR (MDRD) Non-Af 65, BUN/Creatinine Ratio 13.1, Glucose 90, Calcium 9.6, Troponin I High Sens 9, B-Natriuretic Peptide 92.8 02/16/23 20:20: WBC 4.7, RBC 3.53 L, Hgb 12.7, Hct 39.3, MCV 111.3 H, MCH 36.0 H, MCHC 32.3, RDW Std Deviation 59.1 H, RDW Coeff of Martin 14.3, Plt Count 115 L, MPV 10.5, Immature Gran % (Auto) 0.200, Neut % (Auto) 58.7, Lymph % (Auto) 24.5, [place] % (Auto) 10.8 H, Eos % (Auto) 5.2 H, Baso % (Auto) 0.6, Absolute Neuts (auto) 2.7, Absolute Lymphs (auto) 1.14, Nucleated RBC % 0 02/16/23 21:05: D-Dimer Quant (PE/DVT) 0.77 H* Radiology Impression Chest X-Ray 02/16/23 21:20 IMPRESSION: No active disease. Electronically Signed: Jacob Dunn MD at 21:48 EDT , Chest CT 02/16/23 22:02 IMPRESSION: 1. 8 mm noncalcified left upper lobe nodule and correlation with prior studies, follow-up CT, PET CT would be useful. 2. Sclerotic lesion of the manubrium and correlation with prior studies or bone scan may be useful. 3. Small hiatal hernia. 4. Severe levoscoliosis of the thoracolumbar spine with deformity of the chest and abdomen. Electronically Signed: Jacob Dunn MD at 22:49 EDT , Assessment & Plan Assessment/Plan (1) Elevated d-dimer: (2) Acute dyspnea: PLAN: Plan Acute Dyspnea ED labs reviewed showed an elevated D-dimer of 0.77 Difficulty in assessing reports and patient with a difficult vein access. VQ scan ordered. Nurses to attempt to access ports in a.m. Chest CT with metastatic lesions. No pneumonitis seen. Chest CT was independently interpreted, agrees with radiology interpretation. Placed on therapeutic dose of Lovenox Metastatic lung cancer Persistent Follow-up with oncology on discharge. DVT prophylaxis Placed on therapeutic anticoagulation. Time spent in the patient's overall evaluation,decision-making process, review of diagnostic data, adjustment of management, discussion with other providers, nursing nursing and ancillary staff involved in patient's care documentation, 55 minutes. Charges/Coding Visit Charges Inpatient E&M: 98934 Init Hosp L3
[2023-02-17] VITALS (7 sets, daily range): BP systolic 107–149; BP diastolic 56–74; PULSE 57–67; RESP 16–18; TEMP 36.6–36.8; O2SAT 92–98; BMI 34.1
[2023-02-17] MEDS: Enoxaparin 100 MG/ML Syringe 90 MG SC ×2 (00:23→06:32)
--- NOTE | 2023-02-17 00:35 | ED.RN ---
PT REQUESTING LEFT CHEST POWER PORT TO BE DEACCESSED AT THIS TIME. FLUSHED WITH HEPARIN AND DC'D.
[2023-02-17] MEDS: Acetaminophen 500 MG Tablet 1000 MG PO (03:04)
[2023-02-17] MEDS: Pregabalin 75 MG Capsule 150 MG PO (03:04)
[2023-02-17] MEDS: Metoprolol Tartrate 25 MG Tablet PO (03:06)
--- NOTE | 2023-02-17 08:04 | CT_ITS ---
STUDY: CTA CHEST REASON FOR EXAM: Female, 67 years old. Progressive shortness of breath for 2 weeks. History of right breast carcinoma and metastatic disease to the lungs and bone. Prior right mastectomy. Elevated d-dimer. RADIATION DOSAGE (If Supplied By Facility): CTDIvol = ( 7.68 ) mGy, DLP = ( 267.88 ) mGycm TECHNIQUE: The examination was performed with the intravenous administration of IV 100mL Isovue-370. Post-processing of the angiographic images was performed, with multiplanar reformation and 3D reconstruction. Individualized dose optimization techniques were used for this CT. COMPARISON: Comparison is made with prior examination dated February 16, 2023. FINDINGS: The patient is status post right mastectomy. Normal enhancement of the main pulmonary artery and right and left pulmonary arteries. Normal enhancement of the bilateral peripheral pulmonary arteries. There is no demonstrated pulmonary embolism. Normal thoracic aorta and visualized great vessels. There is no demonstrated aortic dissection. Normal heart and pericardium. Normal mediastinum. Normal hilar regions. Normal visualized trachea and bronchi. The lungs are well expanded. There is a 1.1 cm noncalcified pleural-based nodule in the peripheral lateral aspect of the left upper lobe as seen on axial image #126 and coronal image #143 Mild increased linear markings at the lung bases suggestive of underlying atelectasis and/or scarring. Normal chest wall structures. There are degenerative changes of thoracic spine. Levoconvex scoliosis. Stable sclerotic lesion in the manubrium of the sternum. Moderate hiatal hernia. CT/CTA Chest W/WO Contrast IMPRESSION: No evidence of pulmonary embolism. 1.1 cm noncalcified pleural-based nodule in the peripheral lateral aspect of the left upper lobe. Electronically Signed: Dandre Monk MD at 12:15 EDT ,
[2023-02-17] MEDS: Losartan Potassium 100 MG Tablet PO (08:47)
[2023-02-17] MEDS: Acetaminophen 500 MG Tablet PO (08:47)
[2023-02-17] MEDS: Multivitamins,Therapeutic Tablet 1 TABLET PO (08:48)
--- NOTE | 2023-02-17 09:33 | NURSING ---
Line flushes beautifully, but has not blood return. Patient states she feels a deep stinging pain that is new and does not taste the saline like she normally does when flushed. Dr Garay Notified. CXR ordered.
--- NOTE | 2023-02-17 09:35 | RAD_ITS ---
STUDY: X-RAY CHEST REASON FOR EXAM: Female, 67 years old. Port evaluation TECHNIQUE: Single AP portable view of the chest. COMPARISON: Comparison is made with prior study February 16, 2023. FINDINGS: A left-sided desiree catheter seen with the tip at the junction of the superior vena cava and right atrium. EKG electrodes are seen. Mild increased markings seen at the left lung base. Elevation of the right hemidiaphragm. Normal size heart. Normal mediastinum and jenny. Normal visualized pulmonary arteries. There is atherosclerotic calcification of the aortic arch with tortuosity. There is a dextroscoliosis of the thoracic spine. Normal visualized ribs, clavicles, and shoulders. Large hiatal hernia. RAD/Chest 1 View (Portable) IMPRESSION: Dextroscoliosis. Mild increased markings at the left lung base suggestive of atelectasis. Large hiatal hernia. Electronically Signed: Dandre Monk MD at 10:05 EDT ,
--- NOTE | 2023-02-17 10:59 | CASEMGMT ---
Met with patient to complete DAVID form. DAVID form explained to patient who voiced understanding and signed form. Original form placed in pt?s chart and copy provided to?patient. Leesa Reinoso, Discharge Planning Asst.
--- NOTE | 2023-02-17 13:20 | PCM.DC.SUM ---
Providers Date of Admission: 02/16/23 Date of Discharge: 02/17/23 Primary Care Physician: Dr. Mitch Mejia MD Reason For Visit: DYSPNEA Diagnosis Discharge Diagnosis (1) Elevated d-dimer: Status: Acute Code(s): R79.89 - Other specified abnormal findings of blood chemistry (2) Acute dyspnea: Status: Acute Code(s): R06.00 - Dyspnea, unspecified Medications at Discharge Home Medications naproxen sodium 220 mg capsule 220 mg PO Q8H PRN PRN Pain Or Fever 03/29/19 metoprolol tartrate 25 mg tablet 25 mg PO BID 01/22/20 pregabalin 150 mg capsule 150 mg PO BID 09/15/21 multivitamin 1 tab PO DAILY 11/26/22 losartan 100 mg tablet 100 mg PO QDAY HTN #90 tabs 01/20/23 diphenhydramine HCl 25 mg capsule (Benadryl) 25 mg PO QHS 02/16/23 acetaminophen 500 mg capsule 500 mg PO .COMPLEX 02/17/23 Hospital Course Operations None Procedures EKG and - (CT/CTA chest) Summary of Care Provided Minutes Spent on Discharge: 22 Hospital Course: Mrs. Jacobson a 67-year-old white female who presents emergency department at [facility] on 02/17/2023 with a chief complaint of shortness of breath. She has a history of metastatic right breast cancer with metastatic disease to her lungs and is status post right total mastectomy. She is undergoing chemo and radiation and was sent to the emergency department by her oncologist, Dr. Rivers, because of a 2-week history of progressively worsening shortness of breath. She has had a recent echocardiogram as she has known previous cardiomyopathy from her chemotherapy. Most recent echo was on 02/08/2023 and showed an EF of 55% with stage I diastolic dysfunction and normal LV function. She has poor peripheral IV access and has a med port. This was unfortunately unable to be accessed by the emergency department or CT scan yesterday so a noncontrasted CT was done initially to rule out any pneumonitis as pneumonitis is a side effect of her current chemo regimen. No pneumonitis was identified and she was admitted because her D-dimer was elevated at 0.77. PE needed to be ruled out and they could not guarantee outpatient CTA be performed the following day. We were able to get her port accessed and a CTA performed. Her CTA was negative for any PE or any other significant abnormalities other than known pulmonary nodules from metastatic breast cancer. She was able to be discharged in stable condition on 02/17/2023 on room air. She had no signs of hypoxia during her hospitalization. Discharge diagnoses: Shortness of breath without hypoxia Metastatic breast cancer History of nonischemic cardiomyopathy Obesity Neuropathy Hypertension Stage I diastolic dysfunction Physical Exam Const alert, oriented x3, no apparent distress, no limitations and well nourished Constitutional Narrative: Obese, upper middle-aged, white female, sitting up in bed, at bedside, patient appears comfortable and nontoxic, no signs of respiratory issues General Appearance: cooperative, comfortable, well kempt and well developed Orientation / Consciousness: awake, oriented to person, oriented to place and oriented to time Exam Limitations: no limitations Nutritional Appearance: obese HEENT normocephalic, head/scalp atraumatic, hearing grossly normal bilaterally and moist oral mucous membranes Resp normal respiratory effort, no retractions, no use of accessory muscles and clear to auscultation bilaterally Auscultation: Negative for rales, rhonchi or wheezes Cardio regular rate, regular rhythm, S1 normal heart sound, S2 normal heart sound, no murmurs, no rub, no gallops and no clicks GI normal to inspection, nondistended, normoactive bowel sounds, soft to palpation and non-tender Extremity no clubbing, cyanosis or edema Extremity Narrative: Pedal pulses are 2+ Neuro oriented x3, moves all extremities and no focal motor deficits Speech: speech normal Psych affect normal Psych Narrative: Very pleasant, interacts appropriately Weight / BMI Weight Weight: 81.925 kg Body Mass Index (BMI) 34.1 ABG / Lab / Microbiology Data 02/16/23 20:20 02/16/23 19:30 Laboratory: Laboratory Results - last 24 hr 02/16/23 19:30: WBC Cancelled, Corrected WBC Cancelled, RBC Cancelled, Hgb Cancelled, Hct Cancelled, MCV Cancelled, MCH Cancelled, MCHC Cancelled, RDW Std Deviation Cancelled, RDW Coeff of Martin Cancelled, Plt Count Cancelled, MPV Cancelled, Immature Gran % (Auto) Cancelled, Neut % (Auto) Cancelled, Lymph % (Auto) Cancelled, [place] % (Auto) Cancelled, Eos % (Auto) Cancelled, Baso % (Auto) Cancelled, Absolute Neuts (auto) Cancelled, Absolute Lymphs (auto) Cancelled, Total Counted Cancelled, Neutrophils % (Manual) Cancelled, Band Neutrophils % Cancelled, Lymphocytes % (Manual) Cancelled, Monocytes % (Manual) Cancelled, Eosinophils % (Manual) Cancelled, Basophils % (Manual) Cancelled, Metamyelocytes % Cancelled, Myelocytes % Cancelled, Promyelocytes % Cancelled, Blast Cells % Cancelled, Plasma Cell % (Manual) Cancelled, Other Cells % Cancelled, Nucleated RBC % Cancelled, Nucleated RBCs/100 WBC Cancelled, Differential Comment Cancelled, Diff Path Review Cancelled, Hypersegmented Neuts Cancelled, Atypical Lymphocytes Cancelled, Reactive Lymphocytes Cancelled, Smudge Cells Cancelled, Toxic Granulation Cancelled, Toxic Vacuolation Cancelled, Dohle Bodies Cancelled, Anuel Rods Cancelled, Platelet Estimate Cancelled, Plt Morphology Comment Cancelled, RBC Morphology Cancelled 02/16/23 19:30: RBC Morphology Cancelled, Polychromasia Cancelled, Hypochromasia Cancelled, Poikilocytosis Cancelled, Basophilic Stippling Cancelled, Anisocytosis Cancelled, Microcytosis Cancelled, Macrocytosis Cancelled, Spherocytes Cancelled, Sickle Cells Cancelled, Target Cells Cancelled, Tear Drop Cells Cancelled, Ovalocytes Cancelled, Stomatocytes Cancelled, [place] Bodies Cancelled, [place] Cells Cancelled, Bite Cells Cancelled, Crenated Cell Cancelled, Acanthocytes (Spur) Cancelled, Rouleaux Cancelled, Schistocytes Cancelled, Sodium 143, Potassium 4.4, Chloride 109 H, Carbon Dioxide 31.0, Anion Gap 3 L, BUN 12, Creatinine 0.91, Estim Creat Clear Calc 44.03, Est GFR (MDRD) Af Amer 78, Est GFR (MDRD) Non-Af 65, BUN/Creatinine Ratio 13.1, Glucose 90, Calcium 9.6, Troponin I High Sens 9, B-Natriuretic Peptide 92.8 02/16/23 20:20: WBC 4.7, RBC 3.53 L, Hgb 12.7, Hct 39.3, MCV 111.3 H, MCH 36.0 H, MCHC 32.3, RDW Std Deviation 59.1 H, RDW Coeff of Martin 14.3, Plt Count 115 L, MPV 10.5, Immature Gran % (Auto) 0.200, Neut % (Auto) 58.7, Lymph % (Auto) 24.5, [place] % (Auto) 10.8 H, Eos % (Auto) 5.2 H, Baso % (Auto) 0.6, Absolute Neuts (auto) 2.7, Absolute Lymphs (auto) 1.14, Nucleated RBC % 0 02/16/23 21:05: D-Dimer Quant (PE/DVT) 0.77 H* Radiography Diagnostic Testing: Radiology Impression Chest X-Ray 02/16/23 21:20 IMPRESSION: No active disease. Electronically Signed: Jacob Dunn MD at 21:48 EDT , Chest CT 02/16/23 22:02 IMPRESSION: 1. 8 mm noncalcified left upper lobe nodule and correlation with prior studies, follow-up CT, PET CT would be useful. 2. Sclerotic lesion of the manubrium and correlation with prior studies or bone scan may be useful. 3. Small hiatal hernia. 4. Severe levoscoliosis of the thoracolumbar spine with deformity of the chest and abdomen. Electronically Signed: Jacob Dunn MD at 22:49 EDT , Chest CTA 02/17/23 08:04 IMPRESSION: No evidence of pulmonary embolism. 1.1 cm noncalcified pleural-based nodule in the peripheral lateral aspect of the left upper lobe. Electronically Signed: Dandre Monk MD at 12:15 EDT , Chest X-Ray 02/17/23 09:35 IMPRESSION: Dextroscoliosis. Mild increased markings at the left lung base suggestive of atelectasis. Large hiatal hernia. Electronically Signed: Dandre Monk MD at 10:05 EDT , D/C Instructions Discharge Diet: No restrictions Discharge Activity: Return to Normal Activity Meaningful Use Info Meaningful Use Diagnoses (Choose all that apply): None applicable Discharge Plan Admission Admit Date/Time: 02/16/23 23:34 Primary Reason for Your Visit: Shortness of breath Attending Provider: Malika Garay Primary Care Provider: Mitch Mejia Consulting Providers: Luis Stratton Discharge Orders/Prescriptions Prescriptions: Continued metoprolol tartrate 25 mg tablet 25 mg PO BID pregabalin 150 mg capsule 150 mg PO BID naproxen sodium 220 MG capsule 220 mg PO Q8H PRN PRN (Reason: Pain Or Fever) multivitamin Tablet 1 tab PO DAILY diphenhydramine HCl [Benadryl] 25 mg capsule 25 mg PO QHS acetaminophen 500 mg capsule 500 mg PO .COMPLEX Rx Instructions: 500 mg orally; pt takes one tab in the morning and two tabs (1000mg) at night losartan 100 mg tablet 100 mg PO QDAY Qty: 90 3RF Referrals / Follow Up: Mitch Mejia MD [Primary Care Provider] - See Referral Note (As needed) Rip Rivers DO [Med Staff - Active Staff] - Disposition Disposition (needs filled in before D/C Order can be placed): Home, Self Care Charges/Coding Visit Charges Inpatient E&M: 85232 Disch Hosp
--- NOTE | 2023-02-17 15:26 | CASEMGMT ---
Patient has order for discharge. RN CM in to discuss needs at discharge. Patient's is also at the bedside. Patient denies needs at this time. Patient had no further questions/concerns at this time. Patient to discharge home with family support and follow-up plans in place. Christiane SAEEDN, RN, CM
== END 2023-02-17 16:13 | disposition home or self-care (01) ==
LOC: ED 23:23 → PCU 02-17 02:35
PROVIDERS: Admitting Provider Hospitalist; Emergency Provider Emergency Medicine; PCP Family Medicine; Visit Provider Internal Medicine
DX: R79.89 Other specified abnormal findings of blood chemistry (principal); C78.00 Secondary malignant neoplasm of unspecified lung; C79.51 Secondary malignant neoplasm of bone; I42.8 Other cardiomyopathies; C50.911 Malignant neoplasm of unspecified site of right female breast; R06.00 Dyspnea, unspecified; I10 Essential (primary) hypertension; G62.9 Polyneuropathy, unspecified; E66.9 Obesity, unspecified; Z79.899 Other long term (current) drug therapy; Z68.36 Body mass index [BMI] 36.0-36.9, adult
CPT/HCPCS: 36591; 71045; 71250; 71275; 80048; 83880; 84484; 85025; 85379; 93005; 96372; 99221; 99285; Q9967; A4216; G0378

== ENCOUNTER → 2023-05-25 | Outpatient (CLI) | payer MEDICARE, OTHER, SELFPAY ==
--- NOTE | 2023-05-25 10:55 | ECHODONC_ITS ---
Version 2 Reason For Study: Cardiotoxic Drug Monitoring Procedure This was a 2D Doppler, Color Flow transthoracic echocardiogram. Myocardial strain analysis was performed in this exam to aid in the assessment of cardiac function. Exam performed in department. Left Ventricle Normal LV size. Left ventricular systolic function is normal. The estimated ejection fraction is 65 %. Stage 1 diastolic dysfunction. No regional wall motion abnormalities noted. Right Ventricle Normal RV size. Normal systolic function. Atria Normal left atrium. Normal right atrium. Mitral Valve Normal mitral valve. Tricuspid Valve Normal tricuspid valve. Mild (1+) tricuspid valve insufficiency. Pulmonary artery systolic pressure is 32 mmHg. Pulmonic Valve Normal pulmonic valve. Great Vessels Normal aortic root. The pulmonary artery is normal size. Normal inferior vena cava. Pericardium/Pleural No pericardial effusion. MMode/2D Measurements & Calculations LVIDd: 3.7 cm IVSd: 0.89 cm Ao root diam: 3.1 cm LVIDs: 1.9 cm LVPWd: 0.97 cm RVDd: 3.4 cm FS: 49.4 % LAV(MOD-bp): 40.8 ml LVAd ap4: 24.9 cm2 SV(MOD-sp4): 47.4 ml LAV(MOD-bp) Indexed: 22.1 ml/m2 LVLd ap4: 7.3 cm LAV(MOD-sp2): 42.9 ml EDV(MOD-sp4): 71.0 ml LAV(MOD-sp4): 36.0 ml EDV(sp4-el): 72.6 ml LVAs ap4: 12.8 cm2 LVLs ap4: 6.0 cm ESV(MOD-sp4): 23.6 ml ESV(sp4-el): 23.4 ml EF(MOD-sp4): 66.8 % EF(sp4-el): 67.8 % SV(sp4-el): 49.2 ml LA A4 area: 15.3 cm2 RA A4 area: 7.4 cm2 TAPSE: 2.1 cm Time Measurements MV dec time: 0.26 sec Doppler Measurements & Calculations MV E max deion: 84.9 cm/sec Lat Peak E' Deion: 8.2 cm/sec Med Peak E' Deion: 6.6 cm/sec MV A max deion: 96.3 cm/sec E/E' lat: 10.3 E/E' med: 12.8 MV E/A: 0.88 MV dec slope: 325.1 cm/sec2 Ao V2 max: 155.3 cm/sec LV V1 max: 112.1 cm/sec Ao max P.7 mmHg LV V1 max P.0 mmHg Ao V2 mean: 110.2 cm/sec Ao mean P.3 mmHg Ao V2 VTI: 30.2 cm PA V2 max: 89.5 cm/sec TR max deion: 264.8 cm/sec TR max P.0 mmHg ECHO/ONC Echo Complete Interpretation Summary Normal LV size. Left ventricular systolic function is normal. The estimated ejection fraction is 65 %. Stage 1 diastolic dysfunction. Pulmonary artery systolic pressure is 32 mmHg. The global longitudinal strain is normal. The global longitudinal strain = -19. 1 % (normal). Ordering Physician: Rip Rivers Referring Physician: Emma Farrell Performed By: Diane Antony, RDCS, RVT
== END | disposition home or self-care (01) ==
PROVIDERS: PCP Internal Medicine; Referring Provider Internal Medicine Hematology & Oncology; Visit Provider Internal Medicine Hematology & Oncology
DX: C78.01 Secondary malignant neoplasm of right lung (principal); C78.02 Secondary malignant neoplasm of left lung; Z51.81 Encounter for therapeutic drug level monitoring; Z79.899 Other long term (current) drug therapy
CPT/HCPCS: 93306; 93356

== ENCOUNTER 2023-08-16 21:48 | Emergency (ER) | payer MEDICARE, OTHER, SELFPAY ==
[2023-08-16 21:50] VITALS: BP 135/81; PULSE 66; RESP 18; TEMP 35.5; O2SAT 97; BMI 35.6
--- NOTE | 2023-08-16 22:28 | ED.VIS.GI ---
HPI HPI - GI History of Present Illness Chief Complaint: Diarrhea Informant: patient Narrative Narrative: Patient states she has metastatic breast cancer and she had her last chemotherapy treatment about 5 days ago. For the last 2 days she has been having frequent loose diarrhea no watery stools. Tonight she had bright red blood per rectum that seem to be floating on the surface after her bowel movement. She denies any rectal pain. Today she has had pain in her right lower quadrant. She notes that she has had prior appendectomy and right oophorectomy due to a cyst, those were remote. She has had no history of cancer in her abdomen, she has been undergoing treatment for breast cancer for about 8 years now. 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 She denies any recent fevers, but for the last day or 2 she does feel tired weak and fatigued. She states her back has been bothering her a little more than usual but she has a history of scoliosis and chronic pain from that she thinks that is related. [facility] Medical History Breast cancer metastasized to bone Breast cancer metastasized to lung Breast cancer, right breast Chemotherapy management, encounter for Elevated d-dimer Non-ischemic cardiomyopathy Obesity Home Medications naproxen sodium 220 mg capsule 220 mg PO Q8H PRN PRN Pain Or Fever 03/29/19 [History Last Taken Unknown] metoprolol tartrate 25 mg tablet 25 mg PO BID 01/22/20 [History Last Taken Unknown] pregabalin 150 mg capsule 150 mg PO BID 09/15/21 [History Last Taken Unknown] multivitamin 1 tab PO DAILY 11/26/22 [History Last Taken Unknown] losartan 100 mg tablet 100 mg PO QDAY HTN #90 tabs 01/20/23 [Rx Last Taken Unknown] diphenhydramine HCl 25 mg capsule (Benadryl) 25 mg PO QHS 02/16/23 [History Last Taken Unknown] acetaminophen 500 mg capsule 500 mg PO .COMPLEX 02/17/23 [History Last Taken Unknown] hydrocortisone 1 %-pramoxine 1 % rectal foam (Proctofoam HC) 1 applic IL QHS 1 week #10 grams 08/17/23 [Rx Last Taken Unknown] Allergy/AdvReac Type Severity Reaction Status Date / Time nirmatrelvir [From Paxlovid] Allergy Intermediate KIDNEY Verified 08/16/23 21:50 ritonavir [From Paxlovid] Allergy Intermediate KIDNEY Verified 08/16/23 21:50 acetaminophen [From Percocet] Allergy hives and Verified 08/16/23 21:50 nausea amoxicillin Allergy Fever and Verified 08/16/23 21:50 skin rash Cephalosporins Allergy Fever and Verified 08/16/23 21:50 skin rash ciprofloxacin [From Cipro] Allergy Fever and Verified 08/16/23 21:50 skin rash codeine Allergy Fever and Verified 08/16/23 21:50 skin rash erythromycin base Allergy Fever and Verified 08/16/23 21:50 skin rash hydrocodone [From [place]] Allergy hives and Verified 08/16/23 21:50 nausea latex Allergy Rash Verified 08/16/23 21:50 nalbuphine [From [place]] Allergy Fever and Verified 08/16/23 21:50 skin rash oxycodone [From Percocet] Allergy hives and Verified 08/16/23 21:50 nausea prednisone Allergy hives Verified 08/16/23 21:50 with blood underneath Sulfa (Sulfonamide Allergy Fever and Verified 08/16/23 21:50 Antibiotics) skin rash aspirin AdvReac stomach Verified 08/16/23 21:50 bleed AND DARK STOOL Food Allergies: Uncoded AdvReac migraine Verified 08/16/23 21:50 meperidine [From Demerol] AdvReac Upset Verified 08/16/23 21:50 Stomach Family History Sister A-fib CAD (coronary artery disease) Grandmother A-fib Surgical History History of appendectomy History of lumpectomy of right breast History of right mastectomy Social History Smoking Status: Never smoker alcohol intake: never substance use type: does not use caffeine: No what type of physical activity do you participate in: none seatbelt use: always do you feel safe at home: Yes ROS ROS ED Constitutional Constitutional ED: Reports fatigue and weakness; Denies chills or fever(s) Eyes Eyes: Denies change in vision or diplopia ENT ENT ED: Denies rhinorrhea or sore throat Cardiovascular Cardiovascular: Denies chest pain, palpitations or syncope Respiratory/Chest Respiratory/Chest: Denies cough or dyspnea Gastrointestinal Gastrointestinal: Reports abdominal pain, diarrhea and hematochezia; Denies constipation, hemorrhoids, melena, nausea or vomiting Genitourinary Genitourinary ED: Denies dysuria, hematuria or urinary frequency Musculoskeletal Musculoskeletal: Reports back pain; Denies neck pain Integumentary Denies abscess or rash Neurologic Neurologic: Denies headache(s), paresthesias or weakness Psychiatric Psychiatric: Denies anxiety or suicidal thoughts EXAM Physical Exam Const Vital Signs: 08/16/23 21:50 08/16/23 23:48 08/17/23 00:26 Temperature 96 F L 97.7 F L Temperature Source Temporal Temporal Pulse Rate 66 65 65 Respiratory Rate 18 19 H 17 Blood Pressure 135/81 H 129/63 H 134/64 H Blood Pressure Mean 99 85 87 Pulse Ox 97 93 93 Oxygen Delivery Method Room Air Room Air Room Air Positive well nourished and well developed General Appearance ED: well developed and NAD HEENT Reports moist mucous membranes normocephalic and atraumatic Eyes PERRL and EOMs intact bilaterally Neck full ROM and supple Resp normal respiratory effort and clear to auscultation bilaterally Cardio regular rate, regular rhythm and no murmurs GI non-distended GI Narrative: Tender throughout right mid abdomen and right lower quadrant, with the point of maximal tenderness more distal/caudal. No guarding or rebound tenderness. Negative [place]. Normal inspection. Normal bowel sounds and no distention. On rectal there is a trace amount of blood on [place] only, but no pooling or active bleeding. There is a very slight amount of tenderness on [place] to the patient's right approximately 3:00 area, without any palpable abscess, patient states feels like there is a lesion or something there. There is no fissure and no mass. Good tone. Auscultation: normoactive bowel sounds Palpation: soft Back/Spine no CVA tenderness Back/Spine Narrative: Well-healed midline lumbar surgical scar General Back: other FROM Extremity normal to inspection General Extremety ED: Negative for edema, pulses abnormal or tenderness General Extremity: Negative for edema or pulses abnormal Neuro oriented x3, CN's II-XII intact bilaterally and no sensory deficits noted Sensorium / Orientation: awake and alert Motor Exam: strength 5/5 throughout Skin no rashes or lesions noted and no wounds MDM MDM MDM Narrative Medical decision making narrative: Labs obtained and noted, patient was treated with IV fluids, analgesics, and we did a CT of her abdomen/pelvis mainly because of the abdominal pain, not necessarily expecting to find a source of the bleeding. I reviewed the images and the report, which I agree with. I reviewed all 9 lines of the summary with the patient, she knew about many of them already such as the hiatal hernia, fatty liver, metastatic cancer. The periumbilical hernia is not likely causing any of her current symptoms and I think is an incidental finding. At this time the differential includes internal hemorrhoids as well as external hemorrhoids, intracolonic mass, other causes of lower GI bleeding including diverticulosis. At this time she is not having any active bleeding or life-threatening blood loss, her hemoglobin is 12.0 the last set was measured it was 12.7. Her vital signs are normal. She does not have an elevated BUN to suggest that upper GI source. At this time I think it would be reasonable given my rectal exam to treat her empirically for hemorrhoids as she follows up soon as possible with her doctor as she may or may not need to be referred for sigmoidoscopy/colonoscopy. She is comfortable with that overall plan. Lab Data Attestation: I reviewed the patient's lab results. Labs: Laboratory Results - last 24 hr 08/16/23 23:50 WBC 3.8 L RBC 3.39 L Hgb 12.0 Hct 36.6 L MCV 108.0 H MCH 35.4 H MCHC 32.8 RDW Std Deviation 57.0 H RDW Coeff of [place] 14.5 Plt Count 140 L MPV 9.9 Immature Gran % (Auto) 0.300 Neut % (Auto) 65.5 Lymph % (Auto) 21.9 [place] % (Auto) 7.5 Eos % (Auto) 4.5 Baso % (Auto) 0.3 Absolute Neuts (auto) 2.5 Absolute Lymphs (auto) 0.82 L Nucleated RBC % 0 Sodium 143 Potassium 3.7 Chloride 110 H Carbon Dioxide 29.0 Anion Gap 4 L BUN 16 Creatinine 0.96 Estim Creat Clear Calc 54.98 Est GFR (MDRD) Af Amer 74 Est GFR (MDRD) Non-Af 61 BUN/Creatinine Ratio 16.7 Glucose 104 Calcium 9.0 Total Bilirubin 0.60 AST 31 ALT 25 Alkaline Phosphatase 133 H Total Protein 5.6 L Albumin 2.9 L Globulin 2.7 Albumin/Globulin Ratio 1.1 Radiography Diagnostic Testing: Clinical Impression(s) from Imaging Studies Abdomen/Pelvis CT 08/16/23 22:50 IMPRESSION: 1. Lobulated nodule measuring 1.5 x 1.2 cm transverse dimension in the right middle lobe. Nodule measuring 6 mm laterally in the right lower lobe. Findings consistent with known metastatic disease. 2. Calcified leiomyomas in the uterus. 3. Status post right mastectomy. 4. Fatty liver. 5. Splenomegaly. 6. Small fat-containing paraumbilical hernia. No bowel involvement. 7. Scattered diverticula without diverticulitis. 8. No acute abdominal pelvic abnormality. 9. Large hiatal hernia. Electronically Signed: Manish Rogel MD at 0:30 EDT , Discharge Plan Triage Chief Complaint: Diarrhea Other Complaint: GI Bleed ED Provider: Eze Mack Dx/Rx/DC Orders Clinical Impression: Abdominal pain, RLQ, Rectal bleeding Instructions: Rectal Bleeding Tx Prescriptions: New Proctofoam HC 1-1 % foam 1 applic IL QHS 7 Days Qty: 10 0RF No Action metoprolol tartrate 25 mg tablet 25 mg PO BID pregabalin 150 mg capsule 150 mg PO BID naproxen sodium 220 MG capsule 220 mg PO Q8H PRN PRN (Reason: Pain Or Fever) multivitamin Tablet 1 tab PO DAILY diphenhydramine HCl [Benadryl] 25 mg capsule 25 mg PO QHS acetaminophen 500 mg capsule 500 mg PO .COMPLEX Rx Instructions: 500 mg orally; pt takes one tab in the morning and two tabs (1000mg) at night losartan 100 mg tablet 100 mg PO QDAY Qty: 90 3RF Primary Care Provider: Emma Farrell Referrals: Emma Farrell, [Primary Care Provider] - As soon as possible Disposition Disposition: Home, Self Care
[2023-08-16] MEDS: 0.9% Normal Saline (1000mL) 1,000 ML 999 ML IV (22:50)
--- NOTE | 2023-08-16 22:50 | CT_ITS ---
EXAM: CT ABDOMEN AND PELVIS WITH INTRAVENOUS CONTRAST
[2023-08-16 23:00] LABS: Absolute Lymphocyte Count 0.82 X10^3/uL (0.83-4.51); Absolute Neutrophil Count 2.5 X10^3/uL (2.0-7.7); Basophil# 0.01 X10^3/uL; Basophil% 0.3 % (0-1); Eosinophil# 0.17 X10^3/uL; Eosinophils% 4.5 % (0-5); Hematocrit 36.6 % (37-47); Lymphocyte # 0.82 X10^3/ul (0.83-4.51); Lymphocyte % 21.9 % (19-41); Mean Corp Hgb Conc 32.8 g/dL (32-36); Mean Corpuscular Hgb 35.4 pg (27.0-32.0); Mean Platelet Vol. 9.9 fl (6.2-12.0); Monocyte# 0.28 X10^3/uL; Monocyte% 7.5 % (0-10); NRBC Flagged by Analyzer 0 % (0-5); Neutrophil # 2.46 X10^3/uL (2.7-7.7); Neutrophil % 65.5 % (47-70); Platelet Count 140 K/mm3 (150-450); RBC Distribution Width CV 14.5 % (11.6-14.6); Red Blood Count 3.39 M/mm3 (4.2-5.4); White Blood Count 3.8 K/mm3 (4.4-11.0)
[2023-08-16 23:27] LABS: ALB/GLOB Ratio 1.1 RATIO (0.9-2.4); AST(SGOT) 31 U/L (15-37); Alanine Aminotransfer ALT/SGPT 25 U/L (13-56); Albumin, Serum 2.9 g/dL (3.2-5.0); Alkaline Phosphatase 133 U/L (45-117); Anion Gap 4 (5-15); BUN 16 mg/dL (7-18); BUN/Creat Ratio 16.7 RATIO (10-20); Chloride 110 mmol/L (98-107); Creatinine, Serum 0.96 mg/dL (0.55-1.02); EST Glomerular Filtration Rate 61 mL/min (>60); Est Glom Filt Rate - Afr Amer 74 mL/min (>60); Estimated Creatinine Clearance 54.98 ml/min; Globulin 2.7 g/dL (2.2-4.2); Glucose 104 mg/dL (74-106); Potassium 3.7 mmol/L (3.5-5.1); Protein, Total 5.6 g/dL (6.4-8.2); Sodium Level 143 mmol/L (136-145)
[2023-08-16 23:48] VITALS: BP 129/63; PULSE 65; RESP 19; O2SAT 93
[2023-08-17 00:26] VITALS: BP 134/64; PULSE 65; RESP 17; TEMP 36.5; O2SAT 93
[2023-08-17 00:49] VITALS: BP 120/89; PULSE 64; RESP 19; TEMP 36.7; O2SAT 94
== END 2023-08-17 00:57 | disposition home or self-care (01) ==
PROVIDERS: Emergency Provider Emergency Medicine; PCP Internal Medicine; Visit Provider Emergency Medicine
DX: R19.7 Diarrhea, unspecified (principal); C50.919 Malignant neoplasm of unspecified site of unspecified female breast; K62.5 Hemorrhage of anus and rectum; K64.9 Unspecified hemorrhoids; R10.31 Right lower quadrant pain; Z92.21 Personal history of antineoplastic chemotherapy; Z90.49 Acquired absence of other specified parts of digestive tract; Z85.028 Personal history of other malignant neoplasm of stomach; Z85.830 Personal history of malignant neoplasm of bone; Z85.118 Personal history of other malignant neoplasm of bronchus and lung; Z90.11 Acquired absence of right breast and nipple
CPT/HCPCS: 74177; 80053; 85025; 99282; J7030; Q9967; A4216

== ENCOUNTER → 2023-10-19 | Outpatient (CLI) | payer MEDICARE, OTHER, SELFPAY ==
--- NOTE | 2023-10-19 07:41 | ECHOD_ITS ---
Reason For Study: CHEMOTHERAPY Procedure This was a 2D Doppler, Color Flow transthoracic echocardiogram. Myocardial strain analysis was performed in this exam to aid in the assessment of cardiac function. Exam performed in department. Left Ventricle Normal LV size. Left ventricular systolic function is normal. The left ventricular ejection fraction is 55 %. Stage 1 diastolic dysfunction. No regional wall motion abnormalities noted. Right Ventricle Normal RV size. Normal systolic function. Mitral Valve Normal mitral valve. Tricuspid Valve Normal tricuspid valve. Mild tricuspid valve insufficiency. Aortic Valve Normal aortic valve. Trisinus/trileaflet aortic valve. Trivial aortic valve insufficiency. Pulmonic Valve Normal pulmonic valve. Great Vessels Normal aortic root. The pulmonary artery is normal size. Normal inferior vena cava. Pericardium/Pleural No pericardial effusion. MMode/2D Measurements & Calculations LVIDd: 3.7 cm IVSd: 1.0 cm LVOT diam: 2.0 cm LVIDs: 2.4 cm LVPWd: 0.84 cm LVOT area: 3.1 cm2 RVDd: 3.2 cm FS: 34.6 % Ao root diam: 3.7 cm LAV(MOD-bp): 48.7 ml LVAd ap4: 27.1 cm2 LAV(MOD-bp) Indexed: 26.5 ml/m2 LVLd ap4: 7.8 cm LAV(MOD-sp2): 66.8 ml EDV(MOD-sp4): 75.0 ml LAV(MOD-sp4): 34.5 ml EDV(sp4-el): 79.9 ml LVAs ap4: 16.4 cm2 LVLs ap4: 6.5 cm ESV(MOD-sp4): 35.1 ml ESV(sp4-el): 34.9 ml EF(MOD-sp4): 53.2 % EF(sp4-el): 56.3 % SV(MOD-sp4): 39.9 ml SV(MOD-sp2): 50.7 ml LVAd ap2: 28.1 cm2 LVLd ap2: 8.0 cm EDV(MOD-sp2): 80.3 ml EDV(sp2-el): 83.7 ml LVAs ap2: 14.6 cm2 LVLs ap2: 6.1 cm ESV(MOD-sp2): 29.6 ml ESV(sp2-el): 29.6 ml EF(MOD-sp2): 63.1 % SV(sp4-el): 45.0 ml LA A4 area: 14.6 cm2 LA dimension(2D): 3.8 cm TAPSE: 2.3 cm RA A4 area: 12.9 cm2 Time Measurements MV dec time: 0.29 sec Doppler Measurements & Calculations MV E max deion: 65.9 cm/sec Lat Peak E' Deion: 11.3 cm/sec Med Peak E' Deion: 5.6 cm/sec MV A max deion: 93.3 cm/sec E/E' lat: 5.8 E/E' med: 11.7 MV E/A: 0.71 MV dec slope: 224.9 cm/sec2 Ao V2 max: 123.6 cm/sec AI max deion: 354.5 cm/sec Ao max P.1 mmHg AI max P.3 mmHg Ao V2 mean: 85.6 cm/sec AI dec slope: 189.2 cm/sec2 Ao mean P.3 mmHg AI P1/2t: 548.7 msec Ao V2 VTI: 28.8 cm AV (velocity ratio): 0.65 PARVIN(I,D): 2.0 cm2 PARVIN(V,D): 2.2 cm2 LV V1 max: 87.5 cm/sec SV(LVOT): 58.9 ml PA V2 max: 85.4 cm/sec LV V1 max P.1 mmHg LV V1 mean P.8 mmHg LV V1 mean: 65.1 cm/sec LV V1 VTI: 18.8 cm PI end-d deion: 94.4 cm/sec TR max deion: 162.1 cm/sec TR max P.5 mmHg ECHO/Echo Complete Interpretation Summary Normal LV size. Left ventricular systolic function is normal. The left ventricular ejection fraction is 55 %. Stage 1 diastolic dysfunction. The global longitudinal strain is mildly abnormal. The global longitudinal stra in = -16.1% (abnormal). The global longitudinal strain has worsened. Ordering Physician: Rip Rivers Referring Physician: Rip Rivers Performed By: Jane Diaz RDCS
== END | disposition home or self-care (01) ==
LOC: CVS 07:40
PROVIDERS: PCP Internal Medicine; Referring Provider Internal Medicine Hematology & Oncology; Visit Provider Internal Medicine Hematology & Oncology
DX: Z51.81 Encounter for therapeutic drug level monitoring (principal); Z79.899 Other long term (current) drug therapy
CPT/HCPCS: 93306

== ENCOUNTER → 2023-12-19 | Outpatient (CLI) | payer MEDICARE, OTHER, SELFPAY ==
--- NOTE | 2023-12-19 08:47 | ECHODONC_ITS ---
Reason For Study: CHEMOTHERAPY Procedure This was a 2D Doppler, Color Flow transthoracic echocardiogram. Myocardial strain analysis was performed in this exam to aid in the assessment of cardiac function. Exam performed in department. Left Ventricle Normal LV size. Left ventricular systolic function is normal. The left ventricular ejection fraction is 60 %. Stage 1 diastolic dysfunction. No regional wall motion abnormalities noted. Right Ventricle Normal RV size. Normal systolic function. Atria Normal left atrium. Normal right atrium. Mitral Valve Normal mitral valve. Tricuspid Valve Normal tricuspid valve. Mild (1+) tricuspid valve insufficiency. Pulmonary artery systolic pressure is 29 mmHg. Aortic Valve Trisinus/trileaflet aortic valve. Pulmonic Valve Normal pulmonic valve. Great Vessels Normal aortic root. The pulmonary artery is normal size. Normal inferior vena cava. Pericardium/Pleural No pericardial effusion. MMode/2D Measurements & Calculations LVIDd: 4.1 cm IVSd: 0.83 cm LVOT diam: 2.0 cm LVIDs: 3.2 cm LVPWd: 0.89 cm LVOT area: 3.2 cm2 RVDd: 3.3 cm FS: 22.5 % Ao root diam: 3.5 cm LAV(MOD-bp): 46.0 ml LVAd ap4: 28.8 cm2 LAV(MOD-bp) Indexed: 25.1 ml/m2 LVLd ap4: 8.0 cm LAV(MOD-sp2): 29.5 ml EDV(MOD-sp4): 86.6 ml LAV(MOD-sp4): 49.1 ml EDV(sp4-el): 88.4 ml LVAs ap4: 17.3 cm2 LVLs ap4: 6.8 cm ESV(MOD-sp4): 37.6 ml ESV(sp4-el): 37.5 ml EF(MOD-sp4): 56.6 % EF(sp4-el): 57.6 % SV(MOD-sp4): 49.0 ml SV(sp4-el): 50.9 ml LA A4 area: 19.7 cm2 LA dimension(2D): 4.0 cm RA A4 area: 8.9 cm2 TAPSE: 1.3 cm Time Measurements MV dec time: 0.29 sec Doppler Measurements & Calculations MV E max deion: 73.0 cm/sec Lat Peak E' Deion: 8.5 cm/sec Med Peak E' Deion: 4.3 cm/sec MV A max deion: 102.3 cm/sec E/E' lat: 8.5 E/E' med: 17.1 MV E/A: 0.71 MV V2 max: 97.7 cm/sec Ao V2 max: 136.1 cm/sec MV max P.8 mmHg MV dec slope: 260.7 cm/sec2 Ao max P.4 mmHg MV V2 mean: 64.5 cm/sec Ao V2 mean: 93.0 cm/sec MV mean P.9 mmHg Ao mean P.0 mmHg MV V2 VTI: 33.4 cm Ao V2 VTI: 29.4 cm AV (velocity ratio): 0.81 MVA(VTI): 2.3 cm2 PARVIN(I,D): 2.6 cm2 PARVIN(V,D): 2.6 cm2 LV V1 max: 108.9 cm/sec SV(LVOT): 75.9 ml PA V2 max: 107.0 cm/sec LV V1 max P.7 mmHg PA V2 mean: 71.0 cm/sec LV V1 mean P.8 mmHg LV V1 mean: 79.0 cm/sec LV V1 VTI: 23.7 cm TR max deion: 253.2 cm/sec TR max P.7 mmHg ECHO/ONC Echo Complete Interpretation Summary Normal LV size. Left ventricular systolic function is normal. The left ventricular ejection fraction is 60 %. Stage 1 diastolic dysfunction. The global longitudinal strain is normal. The global longitudinal strain = -20. 3 % (normal). Ordering Physician: Rip Rivers Referring Physician: Rip Rivers Performed By: Amber Lou RCS
== END | disposition home or self-care (01) ==
LOC: CVS 08:46
PROVIDERS: PCP Internal Medicine; Referring Provider Internal Medicine Hematology & Oncology; Visit Provider Internal Medicine Hematology & Oncology
DX: I42.7 Cardiomyopathy due to drug and external agent (principal); T45.1X5A Adverse effect of antineoplastic and immunosuppressive drugs, initial encounter; Z51.81 Encounter for therapeutic drug level monitoring; Z79.899 Other long term (current) drug therapy
CPT/HCPCS: 93306; 93356

== ENCOUNTER → 2024-01-12 | Outpatient (CLI) | payer MEDICARE, OTHER, SELFPAY ==
--- NOTE | 2024-01-12 06:44 | ECHOLCONC_ITS ---
Reason For Study: Encounter for monitoring drug therapy Procedure This was a limited 2D transthoracic echocardiogram. Myocardial strain analysis was performed in this exam to aid in the assessment of cardiac function. Exam performed in department. Left Ventricle Normal LV size. Left ventricular systolic function is normal. The left ventricular ejection fraction is 60 %. No regional wall motion abnormalities noted. Right Ventricle Normal RV size. Normal systolic function. Atria Normal left atrium. Normal right atrium. Mitral Valve Normal mitral valve. Tricuspid Valve Normal tricuspid valve. Aortic Valve Trisinus/trileaflet aortic valve. Pulmonic Valve Normal pulmonic valve. Great Vessels Normal aortic root. The pulmonary artery is normal size. Normal inferior vena cava. Pericardium/Pleural No pericardial effusion. MMode/2D Measurements & Calculations LVIDd: 4.0 cm IVSd: 0.73 cm Ao root diam: 3.3 cm LVIDs: 2.8 cm LVPWd: 0.72 cm RVDd: 3.4 cm FS: 29.8 % LAV(MOD-bp): 64.0 ml LVAd ap4: 29.3 cm2 LVAd ap2: 30.1 cm2 LAV(MOD-bp) Indexed: 35.7 ml/m2 LVLd ap4: 8.4 cm LVLd ap2: 8.1 cm LAV(MOD-sp2): 62.3 ml EDV(MOD-sp4): 84.2 ml EDV(MOD-sp2): 95.8 ml LAV(MOD-sp4): 62.1 ml EDV(sp4-el): 87.0 ml EDV(sp2-el): 95.4 ml LVAs ap4: 16.9 cm2 LVAs ap2: 17.5 cm2 LVLs ap4: 6.8 cm LVLs ap2: 6.6 cm ESV(MOD-sp4): 36.2 ml ESV(MOD-sp2): 39.4 ml ESV(sp4-el): 35.5 ml ESV(sp2-el): 39.3 ml EF(MOD-sp4): 57.0 % EF(MOD-sp2): 58.9 % EF(sp4-el): 59.3 % SV(MOD-sp4): 48.0 ml SV(MOD-sp2): 56.4 ml SV(sp4-el): 51.6 ml LA dimension(2D): 4.2 cm LA A4 area: 20.6 cm2 RA A4 area: 14.4 cm2 ECHO/ONC Echo Limited w/Contrast Interpretation Summary Normal LV size. Left ventricular systolic function is normal. The left ventricular ejection fraction is 60 %. Structurally normal valves. Ordering Physician: Rip Rivers Referring Physician: Emma Farrell Performed By: Ely Guerrero, STACIE, RVT
== END | disposition home or self-care (01) ==
LOC: CVS 06:42
PROVIDERS: PCP Internal Medicine; Referring Provider Internal Medicine Hematology & Oncology; Visit Provider Internal Medicine Hematology & Oncology
DX: Z51.81 Encounter for therapeutic drug level monitoring (principal); Z79.899 Other long term (current) drug therapy
CPT/HCPCS: 93308; 93356; C8924

== ENCOUNTER → 2024-09-13 | Outpatient (CLI) | payer MEDICARE, OTHER, SELFPAY ==
--- NOTE | 2024-09-13 13:44 | ECHOD_ITS ---
Reason For Study Reason For Study: CARDIOTOXIC DRUG Procedure This was a 2D Doppler, Color Flow transthoracic echocardiogram. Myocardial strain analysis was performed in this exam to aid in the assessment of cardiac function. Exam performed in department. Left Ventricle Normal LV size. The left ventricular ejection fraction is 55 %. Stage 1 diastolic dysfunction. No regional wall motion abnormalities noted. Right Ventricle Normal RV size. Normal systolic function. Atria Normal left atrium. Normal right atrium. Mitral Valve Normal mitral valve. Tricuspid Valve Normal tricuspid valve. Aortic Valve Trisinus/trileaflet aortic valve. Pulmonic Valve Normal pulmonic valve. Trivial pulmonic valve insufficiency. MMode/2D Measurements & Calculations LVIDd: 3.9 cm IVSd: 0.91 cm LVOT diam: 2.0 cm LVIDs: 2.7 cm LVPWd: 0.92 cm LVOT area: 3.2 cm2 RVDd: 3.2 cm FS: 30.1 % Ao root diam: 3.1 cm LAV(MOD-bp): 34.3 ml LVAd ap4: 30.1 cm2 LAV(MOD-bp) Indexed: 19.3 ml/m2 LVLd ap4: 8.6 cm LAV(MOD-sp2): 52.7 ml EDV(MOD-sp4): 87.7 ml LAV(MOD-sp4): 19.8 ml EDV(sp4-el): 89.4 ml LVAs ap4: 18.6 cm2 LVLs ap4: 7.1 cm ESV(MOD-sp4): 42.8 ml ESV(sp4-el): 41.4 ml EF(MOD-sp4): 51.1 % EF(sp4-el): 53.7 % SV(MOD-sp4): 44.8 ml SV(sp4-el): 48.1 ml LA A4 area: 10.2 cm2 SI(MOD-sp4): 25.2 ml/m2 LA dimension(2D): 3.6 cm RA A4 area: 12.4 cm2 Time Measurements MV dec time: 0.25 sec Doppler Measurements & Calculations MV E max deion: 72.6 cm/sec Lat Peak E' Deion: 8.6 cm/sec Med Peak E' Deion: 5.3 cm/sec MV A max deion: 84.2 cm/sec E/E' lat: 8.4 E/E' med: 13.8 MV E/A: 0.86 MV V2 max: 86.7 cm/sec Ao V2 max: 114.8 cm/sec MV max P.0 mmHg MV dec slope: 285.4 cm/sec2 Ao max P.3 mmHg MV V2 mean: 53.8 cm/sec Ao V2 mean: 81.9 cm/sec MV mean P.3 mmHg Ao mean P.0 mmHg MV V2 VTI: 34.1 cm Ao V2 VTI: 28.3 cm AV (velocity ratio): 0.71 MVA(VTI): 1.9 cm2 PARVIN(I,D): 2.3 cm2 PARVIN(V,D): 2.4 cm2 LV V1 max: 85.5 cm/sec SV(LVOT): 64.1 ml PA V2 max: 89.4 cm/sec LV V1 max P.9 mmHg PA V2 mean: 59.8 cm/sec LV V1 mean P.7 mmHg LV V1 mean: 61.9 cm/sec LV V1 VTI: 20.0 cm ECHO/Echo Complete Interpretation Summary Normal LV size. The left ventricular ejection fraction is 55 %. Stage 1 diastolic dysfunction. The global longitudinal strain = -16% (abnormal). Ordering Physician: Rip Rivers Referring Physician: Rip Rivers Performed By: Amber Lou RCS
== END | disposition home or self-care (01) ==
PROVIDERS: PCP Family Medicine; Referring Provider Internal Medicine Hematology & Oncology; Visit Provider Internal Medicine Hematology & Oncology
DX: C50.311 Malignant neoplasm of lower-inner quadrant of right female breast (principal); C78.01 Secondary malignant neoplasm of right lung; C78.02 Secondary malignant neoplasm of left lung; C79.51 Secondary malignant neoplasm of bone; Z17.0 Estrogen receptor positive status [ER+]; Z51.81 Encounter for therapeutic drug level monitoring; Z79.899 Other long term (current) drug therapy
CPT/HCPCS: 93306

== ENCOUNTER → 2024-12-19 | Outpatient (CLI) | payer MEDICARE, OTHER, SELFPAY ==
--- NOTE | 2024-12-19 06:44 | ECHODONC_ITS ---
Reason For Study Reason For Study: Malignant neoplasm of right breast. Procedure This was a 2D Doppler, Color Flow transthoracic echocardiogram. Exam performed in department. Left Ventricle Normal LV size. The left ventricular ejection fraction is 55 %. Stage 1 diastolic dysfunction. Right Ventricle Normal RV size. Normal systolic function. Atria Normal left atrium. Normal right atrium. Mitral Valve Equivocal mitral valve prolapse. Tricuspid Valve Normal tricuspid valve. Mild tricuspid valve insufficiency. Pulmonary artery systolic pressure is 28 mmHg. Aortic Valve Trisinus/trileaflet aortic valve. Pulmonic Valve Normal pulmonic valve. Great Vessels Normal aortic root. The pulmonary artery is normal size. Inferior vena cava collapse with respiration. Pericardium/Pleural No pericardial effusion. MMode/2D Measurements & Calculations LVIDd: 4.3 cm IVSd: 0.82 cm LVOT diam: 2.0 cm LVIDs: 3.3 cm LVPWd: 0.87 cm LVOT area: 3.3 cm2 RVDd: 3.0 cm FS: 24.6 % Ao root diam: 3.5 cm LAV(MOD-bp): 44.3 ml LA A4 area: 13.8 cm2 LAV(MOD-bp) Indexed: 25.1 ml/m2 LAV(MOD-sp2): 54.1 ml LAV(MOD-sp4): 34.0 ml LA dimension(2D): 4.2 cm TAPSE: 2.2 cm RA A4 area: 11.7 cm2 Time Measurements MV dec time: 0.20 sec Doppler Measurements & Calculations MV E max deion: 79.2 cm/sec Lat Peak E' Deion: 15.3 cm/sec Med Peak E' Deion: 5.8 cm/sec MV A max deion: 91.5 cm/sec E/E' lat: 5.2 E/E' med: 13.6 MV E/A: 0.87 MV V2 max: 94.5 cm/sec MV P1/2t max deion: 81.5 cm/sec Ao V2 max: 117.0 cm/sec MV max P.6 mmHg MV P1/2t: 72.2 msec Ao max P.5 mmHg MV V2 mean: 53.8 cm/sec MV dec slope: 330.7 cm/sec2 Ao V2 mean: 82.5 cm/sec MV mean P.3 mmHg Ao mean P.0 mmHg MV V2 VTI: 30.1 cm MVA(P1/2t): 3.0 cm2 Ao V2 VTI: 27.2 cm MVA(VTI): 2.4 cm2 AV (velocity ratio): 0.81 PARVIN(I,D): 2.7 cm2 PARVIN(V,D): 2.3 cm2 LV V1 max: 80.1 cm/sec SV(LVOT): 73.1 ml PA V2 max: 100.5 cm/sec LV V1 max P.6 mmHg PA V2 mean: 66.3 cm/sec LV V1 mean P.4 mmHg PA mean PG (full): 0.94 mmHg LV V1 mean: 57.5 cm/sec LV V1 VTI: 22.2 cm TR max deion: 246.1 cm/sec TR max P.2 mmHg ECHO/ONC Echo Complete Interpretation Summary Normal LV size. The left ventricular ejection fraction is 55 %. Stage 1 diastolic dysfunction. Equivocal mitral valve prolapse. Pulmonary artery systolic pressure is 28 mmHg. The global longitudinal strain is normal. The global longitudinal strain = -17. 5 % (normal). Ordering Physician: Caity Cote Referring Physician: Eliot Billingsley Performed By: Ely Guerrero RDCS, RVT
--- OUTSIDE RECORDS SUMMARY | 2024-12-19 06:48 | XMS RPT_ITS | CCD ---
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 Mitch Mejia Primary Care Provider Dr. Mayco Galeano Attending Provider Dr. Mitch Mejia Referring Provider [phone] Dr. Mitch Mejia Primary Care Provider Dr. Mayco Galeano Attending Provider Mitch Mejia Primary Care Provider Jarrod RG MD, Daesung Unavailable Gage MORRISON, Carla Unavailable Unavailable Jarrod RG MD, Daesung Unavailable Chanelle Westfall RN Unavailable Mitch Mejia Primary Care Provider Chanelle Westfall RN Unavailable Mitch Mejia Primary Care Provider Jarrod RG MD, Meenu Unavailable Gage RN, Carla Unavailable Unavailable Jarrod RG MD, Esaung Unavailable Khoi MORRISON, Chanelle Unavailable Dr. Mitch Mejia Primary Care Provider Dr. Mayco Galeano Attending Provider Dr. Mitch Mejia Referring Provider Dr. Mitch Mejia Primary Care Provider [phone] Mayco Galeano Attending Provider Waleska, Mayco S Unavailable Khoi MORRISON, Chanelle Unavailable Waleska, Lorraine S Unavailable Gage MORRISON, Carla Unavailable Unavailable Dr. Mitch Mejia Primary Care Provider Dr. Mayco Galeano Attending Provider Dr. Mitch Mejia Referring Provider Trey FRAZIER, JOANNE Jackson Attending Provider Dr. Gurvinder Dill Emergency Provider Dr. Luis Stratton Admit Provider Dr. Luis Stratton Other Provider Dr. Malika Garay Attending Provider Dr. Malika Garay Other Provider Waleska RG, Lorraine S Unavailable Mitch Mejia MD Primary Care Provider [phone] Khoi MORRISON, Chanelle Unavailable Williams Farrell DO Primary Care Provider Dr. Mitch Mejia Primary Care Provider Dr. Gurvinder Dill Emergency Provider Dr. Luis Stratton Admit Provider Dr. Luis Stratton Other Provider Dr. Malika Garay Attending Provider Dr. Malika Garay Other Provider Dr. Williams Farrell Primary Care Provider Dr. Mayco Galeano Attending Provider Dr. Mitch Mejia Referring Provider Trey COMMUNICATIONS EDITOR, COMMUNICATIONS EDITOR-C Renetta Attending Provider Jarrod RG, Coltonesung Unavailable Jarrod RG, Coltonesung Unavailable Dr. Williams Farrell Primary Care Provider Dr. Mayco Galeano Attending Provider Dr. Mitch Mejia Referring Provider Trey COMMUNICATIONS EDITOR, COMMUNICATIONS EDITOR-C Renetta Attending Provider RIP RIVERS Referring Unavailable OBERHAUSER, WILLIAMS L Primary Care Unavailable RIP RIVERS Referring Unavailable OBERHAUSER, WILLIAMS L Primary Care Unavailable Oberhauser DO, Williams L Primary Care Provider Rip Rivers DO Unavailable Oberhauser DO, Williams L Primary Care Provider Isac Billingsley MD Primary Care Provider OberhausPaulie smalls DOn Liseth Primary Care Provider Dr. Rip Rivers DO Attending Provider Dr. Rip Rivers DO Referring Provider Dr. Isac Billingsley MD Primary Care Provider Dr. Mayco Galeano MD Attending Provider Isac Billingsley MD Primary Care Provider ISAC BILLINGSLEY Attending Unavailable OBERHAUSER, WILLIAMS L Primary Care Unavailable OBERHAUSER, WILLIAMS L Primary Care Unavailable CAITY COTE Referring Unavailable OBERHAUSER, WILLIAMS L Primary Care Unavailable RIP RIVERS Attending Unavailable MASCI, RIP Borja Referring Unavailable OBERHAUSER, WILLIAMS L Primary Care Unavailable MASCI, RIP Borja Referring Unavailable MASCI, RIP Borja Referring Unavailable COTE, CAITY Attending Unavailable JOSE CRUZ, ISAC L Primary Care Unavailable MASCI, RIP Borja Referring Unavailable JOSE CRUZ, ISAC L Primary Care Unavailable MASCI, RIP Borja Referring Unavailable JOSE CRUZ, ISAC L Primary Care Unavailable MELL, QUITA Attending Unavailable MASCI, RIP Borja Referring Unavailable JOSE CRUZ, ISAC L Primary Care Unavailable MASCI, RIP Borja Referring Unavailable JOSE CRUZ, ISAC L Primary Care Unavailable JOSE CRUZ, ISAC L Primary Care Unavailable MASCI, RIP Borja Referring Unavailable MASCI, RIP Borja Referring Unavailable JOSE CRUZ, ISAC L Primary Care Unavailable MASCI, RIP Borja Referring Unavailable OBERHAUSER, WILLIAMS L Primary Care Unavailable MASCI, RIP Borja Attending Unavailable MASCI, RIP Borja Referring Unavailable OBERHAUSER, WILLIAMS L Primary Care Unavailable MASCI, RIP Borja Referring Unavailable OBERHAUSER, WILLIAMS L Primary Care Unavailable MASCI, RIP Borja Referring Unavailable OBERHAUSER, WILLIAMS L Primary Care Unavailable CAITY COTE Attending Unavailable MASCI, RIP Borja Referring Unavailable JOSE CRUZ, ISAC L Primary Care Unavailable OBERHAUSER, WILLIAMS L Primary Care Unavailable MASCI, RIP Borja Referring Unavailable OBERHAUSER, WILLIAMS L Primary Care Unavailable MASCI, RIP Borja Referring Unavailable MASCI, RIP Borja Attending Unavailable OBERHAUSER, WILLIAMS L Primary Care Unavailable MASCI, RIP Borja Referring Unavailable JOSE CRUZ, ISAC L Primary Care Unavailable MASCI, RIP Borja Referring Unavailable JOSE CRUZ, ISAC L Primary Care Unavailable MASCI, RIP Borja Referring Unavailable QUITA HOFF Attending Unavailable MASCI, RIP Borja Referring Unavailable JOSE CRUZ, ISAC L Primary Care Unavailable MASCI, RIP Borja Referring Unavailable JOSE CRUZ, ISAC L Primary Care Unavailable JOSE CRUZ, ISAC L Primary Care Unavailable VLAD, CAITY Attending Unavailable MASCI, RIP Borja Referring Unavailable JOSE CRUZ, ISAC L Primary Care Unavailable MASCI, RIP Borja Referring Unavailable MASCI, RIP Borja Referring Unavailable JOSE CRUZ, ISAC L Primary Care Unavailable OBERHAUSER, WILLIAMS L Primary Care Unavailable MASCI, RIP Borja Referring Unavailable OBERHAUSER, WILLIAMS L Primary Care Unavailable MASCI, RIP Borja Attending Unavailable MASCI, RIP Borja Referring Unavailable OBERHAUSER, WILLIAMS L Primary Care Unavailable MASCI, RIP Borja Referring Unavailable OBERHAUSER, WILLIAMS L Primary Care Unavailable MASCI, RIP Borja Referring Unavailable MASCI, RIP Borja Referring Unavailable CAITY COTE Attending Unavailable JOSE CRUZ, ISAC L Primary Care Unavailable MASCI, RIP Borja Referring Unavailable JOSE CRUZ, ISAC L Primary Care Unavailable POORNIMA GARCIA Attending Unavailable JOSE CRUZ, ISAC L Primary Care Unavailable POORNIMA GARCIA Referring Unavailable JOSE CRUZ, ISAC L Primary Care Unavailable MASCI, RIP Borja Referring Unavailable OBERHAUSER, WILLIAMS L Primary Care Unavailable JOSE CRUZ, ISAC L Primary Care Unavailable MASCI, RIP Borja Referring Unavailable OBERHAUSER, WILLIAMS L Primary Care Unavailable MASCI, RIP Borja Referring Unavailable MASCI, RIP Borja Referring Unavailable OBERHAUSER, WILLIAMS L Primary Care Unavailable OBERHAUSER, WILLIAMS L Primary Care Unavailable MASCI, RIP Borja Referring Unavailable JOSE CRUZ, ISAC L Primary Care Unavailable CAITY COTE Attending Unavailable JOSE CRUZ, ISAC L Primary Care Unavailable MASCI, RIP Borja Referring Unavailable JOSE CRUZ, ISAC L Primary Care Unavailable MASCI, RIP Borja Referring Unavailable JOSE CRUZ, ISAC L Primary Care Unavailable MASCI, RIP Borja Referring Unavailable OBERHAUSER, WILLIAMS L Primary Care Unavailable MASCI, RIP Borja Referring Unavailable JOSE CRUZ, ISAC L Primary Care Unavailable JOSE CRUZ, ISAC L Primary Care Unavailable MASCI, RIP Borja Attending Unavailable MASCI, RIP Borja Referring Unavailable JOSE CRUZ, ISAC L Primary Care Unavailable MASCI, RIP Borja Referring Unavailable JOSE CRUZ, ISAC L Primary Care Unavailable MASCI, RIP Borja Referring Unavailable JOSE CRUZ, ISAC L Primary Care Unavailable MASCI, RIP Borja Referring Unavailable CAITY COTE Attending Unavailable JOSE CRUZ, ISAC L Primary Care Unavailable MASCI, RIP Borja Referring Unavailable JOSE CRUZ, ISAC L Primary Care Unavailable MASCI, RIP Borja Referring Unavailable OBERHAUSER, WILLIAMS L Primary Care Unavailable MASCI, RIP Borja Referring Unavailable MASCI, RIP Borja Attending Unavailable MASCI, RIP Borja Referring Unavailable CAITY COTE Attending Unavailable JOSE CRUZ, ISAC L Primary Care Unavailable OBERHAUSER, WILLIAMS L Primary Care Unavailable MASCI, RIP Borja Referring Unavailable OBERHAUSER, WILLIAMS L Primary Care Unavailable MASCI, RIP Borja Referring Unavailable OBERHAUSER, WILLIAMS L Primary Care Unavailable MASCI, RIP Borja Referring Unavailable CAITY COTE Attending Unavailable OBERHAUSER, WILLIAMS L Primary Care Unavailable MASCI, RIP A Referring Unavailable OBERHAUSER, WILILAMS L Primary Care Unavailable MASCI, RIP A Referring Unavailable OBERHAUSER, WILLIAMS L Primary Care Unavailable MASCI, RIP A Referring Unavailable COTE, CAITY Attending Unavailable MASCI, RIP A Referring Unavailable OBERHAUSER, WILLIAMS L Primary Care Unavailable MASCI, RIP A Referring Unavailable OBERHAUSER, WILLIAMS L Primary Care Unavailable MASCI, RIP A Referring Unavailable OBERHAUSER, WILLIAMS L Primary Care Unavailable MASCI, RIP A Referring Unavailable OBERHAUSER, WILLIAMS L Primary Care Unavailable OBERHAUSER, WILLIAMS L Primary Care Unavailable COTE, CAITY Referring Unavailable OBERHAUSER, WILLIAMS L Primary Care Unavailable COTE, CAITY Referring Unavailable Masci, Rip Attending Unavailable Masci, Rip Referring Unavailable Oberhauser, Williams Primary Care Unavailable Masci, Rip Attending Unavailable Masci, Rip Referring Unavailable Jose Cruz, Isac Primary Care Unavailable Cote COMMUNICATIONS EDITOR, Caity Attending Unavailable Cote COMMUNICATIONS EDITOR, Caity Referring Unavailable Jose Cruz, Isac Primary Care Unavailable Masci, Rip Attending Unavailable Oberhauser, Williams Primary Care Unavailable Masci, Rip Referring Unavailable Waleska, Lorraine Attending Unavailable Jose Cruz, Isac Primary Care Unavailable Waleska, Mayco Attending Unavailable Oberhauser, Williams Primary Care Unavailable Waleska, Lorraine Attending Unavailable Oberhauser, Williams Primary Care Unavailable Roof COMMUNICATIONS EDITORTanvi Attending Unavailable Oberhauser, Williams Referring Unavailable Oberhauser, Williams Primary Care Unavailable Allergies Allergy Classification Reported Allergen(s) Allergy Type Date of Onset Reaction(s) Facility Acetaminophen / HYDROcodone (3 sources) Acetaminophen / HYDROcodone Drug Allergy 03-04-20 16 Hives [facility] Acetaminophen / oxyCODONE (3 sources) Acetaminophen / oxyCODONE Drug Allergy 03-29-20 16 Rash, Itching [facility] Aspirin (3 sources) Aspirin Drug Allergy 02-20-20 16 Other: See Comments [facility] Cephalosporins (antibiotic) (3 sources) Cephalosporins (Antibiotic) Drug Allergy 02-20-20 16 Unknown [facility] Corticosteroids (3 sources) predniSONE Drug Allergy 02-20-20 16 Unknown [facility] Latex (3 sources) Latex Substance Allergy 03-18-20 16 Rash [facility] Macrolides (antibiotic) (3 sources) Erythromycin Drug Allergy 02-20-20 16 Unknown [facility] Nalbuphine (3 sources) Nalbuphine Drug Allergy 02-20-20 16 Unknown [facility] neratinib (3 sources) neratinib Drug Allergy 07-27-19 18 Hives [facility] Opioid Agonists (6 sources) Codeine Drug Allergy 02-20-20 16 Unknown [facility] Penicillins (antibiotic) (3 sources) Amoxicillin Drug Allergy 02-20-20 16 Rash [facility] rye allergenic extract (3 sources) rye allergenic extract Drug Allergy 02-20-20 16 Other: See Comments [facility] Sulfonamides (antibiotic) (3 sources) Sulfonamides (Antibiotic) Drug Allergy 02-20-20 16 Other: See Comments [facility] (4 sources) acetaminophen / HYDROcodone drug allergy 12-02-19 17 Hives and nausea [facility] Work Phone: (4 sources) acetaminophen / oxyCODONE drug allergy 12-02-19 17 Hives and nausea [facility] Work Phone: (20 sources) amoxicillin; Translations: [AMOXICILLIN] drug allergy 02-20-20 16 Rash, Fever, Nausea/vomitin g [facility] Work Phone: (20 sources) aspirin; Translations: [ASPIRIN] drug allergy 02-20-20 16 Other: See Comments, Other, GI bleeding [facility] Work Phone: (4 sources) ciprofloxacin drug allergy 12-02-19 17 Hives and nausea [facility] Work Phone: (20 sources) codeine; Translations: [CODEINE] drug allergy 02-20-20 16 Unknown, Fever, Hives [facility] Work Phone: (4 sources) meperidine drug allergy 12-02-19 17 Hives, nausea [facility] Work Phone: [phone] (4 sources) nalbuphine drug allergy 12-02-19 17 Hives and nausea [facility] Work Phone: (7 sources) natural latex rubber; Translations: [LATEX] allergy to substance 03-18-20 16 Hives [facility] Work Phone: [phone] (20 sources) predniSONE; Translations: [PREDNISONE] drug allergy 02-20-20 16 Unknown [facility] Work Phone: (20 sources) rye allergenic extract; Translations: [RYE] drug allergy 02-20-20 16 Other: See Comments [facility] Work Phone: (4 sources) Sulfonamides (Antibiotic) drug allergy 12-02-19 17 Hives and nausea [facility] Work Phone: (20 sources) Acetaminophen / HYDROcodone; Translations: [HYDROCODONE-ACETA MINOPHEN] Drug Allergy 03-04-20 16 Hives, Nausea/vomitin g [facility] (20 sources) Acetaminophen / oxyCODONE; Translations: [OXYCODONE-ACETAMI NOPHEN] Drug Allergy 03-29-20 16 Rash, Itching, Nausea/vomitin g [facility] (20 sources) Cephalosporins (Antibiotic); Translations: [CEPHALOSPORINS] Drug Allergy 02-20-20 16 Unknown, Rash, Fever [facility] (20 sources) Erythromycin; Translations: [ERYTHROMYCIN] Drug Allergy 02-20-20 16 [facility] (20 sources) Latex Drug Allergy 03-18-20 16 Rash, [facility] (20 sources) Meperidine; Translations: [MEPERIDINE (PF)] Drug Allergy 02-20-20 16 [facility] (20 sources) Nalbuphine; Translations: [NALBUPHINE HCL] Drug Allergy 02-20-20 16 [facility] (20 sources) neratinib; Translations: [NERATINIB] Drug Allergy 07-27-[address] [facility] (20 sources) Sulfonamides (Antibiotic); Translations: [SULFA (SULFONAMIDE ANTIBIOTICS)] Drug Allergy 02-20-20 16 Other: See Comments, Unknown, Hives, Rash [facility] (20 sources) Ciprocinonide; Translations: [CIPROCINONIDE] Drug Allergy 02-20-20 16 [facility] (12 sources) Acetaminophen; Translations: [ACETAMINOPHEN] Drug Allergy 03-29-20 19 [facility] (12 sources) Ciprofloxacin; Translations: [CIPROFLOXACIN] Drug Allergy 12-02-19 17 Fever, Rash [facility] (12 sources) HYDROcodone; Translations: [HYDROCODONE] Drug Allergy 03-29-20 19 Hives, Nausea/vomitin g [facility] (12 sources) Meperidine; Translations: [MEPERIDINE] Drug Allergy 12-02-19 17 Hives, GI Upset [facility] (12 sources) Nalbuphine; Translations: [NALBUPHINE] Drug Allergy 12-02-19 17 Fever, Nausea/vomitin g [facility] (12 sources) oxyCODONE; Translations: [OXYCODONE] Drug Allergy 03-29-20 19 Hives, Nausea/vomitin g [facility] (20 sources) Cephalosporins (Antibiotic) Drug Allergy 02-20-20 16 Unknown [facility] (8 sources) Cephalosporins (Antibiotic) Allergy to substance 04-06-20 22 Fever and skin rash [facility] (8 sources) Sulfonamides (Antibiotic) Allergy to substance 04-06-20 22 Fever and skin rash [facility] (7 sources) Food Allergies: Uncoded; Translations: [Food Allergies: Uncoded] Propensity to adverse reactions 12-01-19 23 migraine [facility] Comment on above: [place] (20 sources) Nirmatrelvir-Riton avir; Translations: [NIRMATRELVIR-FROY NAVIR] Drug Allergy 07-20-19 24 Intolerance, Other [facility] (4 sources) Ritonavir; Translations: [RITONAVIR] Drug Allergy 08-16-19 Other [facility] (5 sources) nirmatrelvir; Translations: [NIRMATRELVIR] Allergy to substance 08-16-19 Other [facility] (1 source) Acetaminophen Drug Allergy 05-21-20 [facility] (1 source) Cephalosporins (Antibiotic) Drug allergy (disorder) 05-21-20 [facility] (1 source) Ciprofloxacin Drug Allergy 05-21-20 [facility] (1 source) Erythromycin Drug Allergy 05-21-20 [facility] (1 source) HYDROcodone Drug Allergy 05-21-20 [facility] (1 source) Latex Drug allergy (disorder) 05-21-20 [facility] (1 source) Meperidine Drug Allergy 05-21-20 [facility] (1 source) Nalbuphine Drug Allergy 05-21-20 [facility] (1 source) oxyCODONE Drug Allergy 05-21-20 [facility] (1 source) Ritonavir Drug Allergy 05-21-20 [facility] (1 source) Sulfonamides (Antibiotic) Drug allergy (disorder) 05-21-20 [facility] Medications Current Medications Medication Drug Class(es) Dates Sig (Normalized) Sig (Original) acetaminophen 500 mg oral capsule (20 sources) Start: 02-17-2023 Acetaminophen 500 mg cap Take 2 capsules by mouth as needed. 02/17/2023 Active Start: 02-17-2023 Acetaminophen 500 mg capsule Active 500 mg PO .COMPLEX February 17, 2023 12:00am 500 mg orally; pt takes one tab in the morning and two tabs (1000mg) at night Start: 02-16-2023 take 1 tablet by chito th once daily Acetaminophen (Tylenol) 325 mg tablet Active 325 MG PO DAILY February 16, 2023 12:00am Start: 12-01-2016 TYLENOL 325 MG TABS as needed ACETAMINOPHEN [id number] Mayco Galeano MD End: 04-06-2023 take 2 tablets by mouth every eight hours as needed acetaminophen (TYLENOL) 500 mg tablet Take 1,000 mg by mouth every 8 hours as needed for pain. 0 04/06/2023 Discontinued Comment on above: Take 1,000 mg by chito th every 8 hours as needed for pain. ascorbate calcium-bioflavonoid (Mary-C with Bioflavonoids) 500-200 mg tablet (2 sources) ascorbate calcium-bioflavonoid (Mary-C with Bioflavonoids) 500-200 mg tablet Take by mouth. Active ascorbate calciu m-bioflavonoid (Mary-C with Bioflavonoids) 500-200 mg tablet Take by mouth. 0 Active Ascorbic Acid / Bioflavonoids (20 sources) Vitamin C take 500 mg by mouth once daily ascorbic acid/bioflavonoids (MARY C ORAL) Take 500 mg by mouth once daily. Active take 500 mg by mouth once daily ascorbic acid/bioflavonoids (MARY C ORAL) Take 500 mg by mouth once daily. 0 Active Comment on above: Take 500 mg by mouth once daily. capecitabine 500 mg oral tablet (20 sources) Nucleoside Metabolic Inhibitor Start: 07-18-2024 End: 10-08-2024 capecitabine (XELODA) 500 mg tablet Take 2 tablets (1000mg) in the morning and 2 tablets (1000mg) in the evening by mouth with food for 14 days then 7 days off. 56 tablet 2 12/10/2024 5:13 PM EDT 10/08/2024 Active Start: 06-03-2024 End: 07-16-2024 capecitabine (XELODA) 500 mg tablet Take 3 tablets (1500 mg) in the morning and 2 tablets (1000mg) in the evening by mouth with food for 14 days then 7 days off. 70 tablet 2 06/29/2024 11:06 AM EST 06/03/2024 07/16/2024 Discontinued Start: 11-22-2023 take 1 tablet by chito th twice daily Capecitabine 500 mg tablet Active 1500 mg PO TWICE A DAY November 22, 2023 12:00am Start: 08-30-2023 End: 06-01-2024 capecitabine (XELODA) 500 mg tablet Take 3 tablets (1500 mg) in the morning and 2 tablets (1000mg) in the evening by mouth with food for 14 days then 7 days off. 70 tablet 5 01/31/2024 06/01/2024 Discontinued Start: 08-30-2023 capecitabine ( XELODA) 500 mg tablet Take 4 tablets (2000 mg) by mouth twice daily for 14 days then 7 days off. 112 tablet 5 08/30/2023 Active Comment on above: Take 4 tablets (2000 mg) by mouth twice daily for 14 days then 7 days off. diphenhydrAMINE hydrochloride 25 mg oral capsule (20 sources) Histamine-1 Receptor Antagonist Start: 02-17-20 take 1 capsule by mouth at bedtime Diphenhydramine Hcl (Benadryl) 25 mg capsule Active 25 mg PO AT BEDTIME February 16, 2023 12:00am Start: 03-29-2019 End: 01-22-2020 take 1 capsule by mouth every eight hours as needed Diphenhydramine Hcl 25 MG capsule Discontinued 25 mg PO EVERY 8 HOURS NEEDED as needed for itchy March 29, 2019 12:00am January 22, 2020 2:46pm take 1 tablet by chito th every twelve hours as needed diphenhydrAMINE (BENADRYL) 25 mg tablet Take 25 mg by mouth twice daily as needed. Active Comment on above: Take 25 mg by mouth twice daily as needed. enteric contrast (will be provided with radiology test) (20 sources) Start: 12-12-2024 End: 12-13-2024 enteric contrast (will be provided with radiology test) Indications: Malignant neoplasm of lower-inner quadrant of right breast of female, estrogen receptor positive (HCC) , HER2-positive carcinoma of breast (HCC) , Malignant neoplasm metastatic to bone (HCC) , Malignant neoplasm metastatic to both lungs (HCC) , Chemotherapy-induced cardiomyopathy (HCC) For CT CHESTABD/PEL W IVCON Routine order Administer, As Directed One Time Only, via Oral, Rectal, both Oral and Rectal, Enteric Tube, Stoma or Indwelling Catheter, Enteric Contrast as designated per enteric contrast guidelines 1 each 12/12/2024 12/13/2024 Active Start: 08-15-[address] (will be provided with radiology test) Indications: Malignant neoplasm of lower-inner quadrant of right breast of female, estrogen receptor positive (HCC) , Malignant neoplasm metastatic to bone (HCC) , Malignant neoplasm metastatic to both lungs (HCC) For CT ABD/PEL W IVCON Routine order Administer, As Directed One Time Only, via Oral, Rectal, both Oral and Rectal, Enteric Tube, Stoma or Indwelling Catheter, Enteric Contrast as designated per enteric contrast guidelines 1 Each 08/15/2024 Active Start: 03-21-2024 End: 06-13-2024 enteric contrast (will be pr ovided with radiology test) Indications: Malignant neoplasm of lower-inner quadrant of right breast of female, estrogen receptor positive (HCC) , Malignant neoplasm metastatic to bone (HCC) , Malignant neoplasm metastatic to both lungs (HCC) For CT ABD/PEL W IVCON Routine order Administer, As Directed One Time Only, via Oral, Rectal, both Oral and Rectal, Enteric Tube, Stoma or Indwelling Catheter, Enteric Contrast as designated per enteric contrast guidelines 1 Each 03/21/2024 06/13/2024 Discontinued Start: 03-21-[address] (will be provided with radiology test) Indications: Malignant neoplasm of lower-inner quadrant of right breast of female, estrogen receptor positive (HCC) , Malignant neoplasm metastatic to bone (HCC) , Malignant neoplasm metastatic to both lungs (HCC) For CT ABD/PEL W IVCON Routine order Administer, As Directed One Time Only, via Oral, Rectal, both Oral and Rectal, Enteric Tube, Stoma or Indwelling Catheter, Enteric Contrast as designated per enteric contrast guidelines 1 Each 03/21/2024 Active Start: 12-14-2023 End: 12-15-2023 enteric contrast (will be pr ovided with radiology test) Indications: Malignant neoplasm of lower-inner quadrant of right breast of female, estrogen receptor positive (HCC) , Malignant neoplasm metastatic to lung, unspecified laterality (HCC) , Malignant neoplasm metastatic to bone (HCC) , HER2-positive carcinoma of breast (HCC) , Chemotherapy-induced cardiomyopathy (HCC) , Chemotherapy-induced neuropathy (HCC) For CT CHESTABD/PEL W IVCON Routine order Administer, As Directed One Time Only, via Oral, Rectal, both Oral and Rectal, Enteric Tube, Stoma or Indwelling Catheter, Enteric Contrast as designated per enteric contrast guidelines 1 Each 0 12/14/2023 12/15/2023 Start: 12-14-2023 End: 12-15-2023 enteric contrast (will be pr ovided with radiology test) Indications: Malignant neoplasm of lower-inner quadrant of right breast of female, estrogen receptor positive (HCC) , Malignant neoplasm metastatic to lung, unspecified laterality (HCC) , Malignant neoplasm metastatic to bone (HCC) , HER2-positive carcinoma of breast (HCC) , Chemotherapy-induced cardiomyopathy (HCC) , Chemotherapy-induced neuropathy (HCC) For CT CHESTABD/PEL W IVCON Routine order Administer, As Directed One Time Only, via Oral, Rectal, both Oral and Rectal, Enteric Tube, Stoma or Indwelling Catheter, Enteric Contrast as designated per enteric contrast guidelines 1 Each 0 12/14/2023 12/15/2023 Active Start: 12-22-2022 End: 12-23-2022 enteric contrast (will be pr ovided with radiology test) Indications: Malignant neoplasm of lower-inner quadrant of right breast of female, estrogen receptor positive (HCC) , 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) , Malignant neoplasm metastatic to both lungs (HCC) For CT CHESTABD/PEL W IVCON Routine order Administer, As Directed One Time Only, via Oral, Rectal, both Oral and Rectal, Enteric Tube, Stoma or Indwelling Catheter, Enteric Contrast as designated per enteric contrast guidelines 1 Each 0 12/22/2022 12/23/2022 Active Start: 07-30-2022 End: 08-30-2023 enteric contrast (will be pr ovided with radiology test) Indications: Malignant neoplasm of lower-inner quadrant of right breast of female, estrogen receptor positive (HCC) , Bone metastases , Malignant neoplasm metastatic to both lungs (HCC) For CT ABD/PEL W IVCON Routine order Administer, As Directed One Time Only, via Oral, Rectal, both Oral and Rectal, Enteric Tube, Stoma or Indwelling Catheter, Enteric Contrast as designated per enteric contrast guidelines 1 Each 0 07/30/2022 08/30/2023 Discontinued Start: 07-30-[address] (will be provided with radiology test) Indications: Malignant neoplasm of lower-inner quadrant of right breast of female, estrogen receptor positive (HCC) (HCC) , Bone metastases , Malignant neoplasm metastatic to both lungs (HCC) For CT ABD/PEL W IVCON Routine order Administer, As Directed One Time Only, via Oral, Rectal, both Oral and Rectal, Enteric Tube, Stoma or Indwelling Catheter, Enteric Contrast as designated per enteric contrast guidelines 1 Each 0 07/30/2022 Active Start: 07-30-[address] (will be provided with radiology test) Indications: Malignant neoplasm of lower-inner quadrant of right breast of female, estrogen receptor positive (HCC) , Bone metastases , Malignant neoplasm metastatic to both lungs (HCC) For CT ABD/PEL W IVCON Routine order Administer, As Directed One Time Only, via Oral, Rectal, both Oral and Rectal, Enteric Tube, Stoma or Indwelling Catheter, Enteric Contrast as designated per enteric contrast guidelines 1 Each 0 07/30/2022 Active Start: 07-30-[address] (will be provided with radiology test) Indications: Malignant neoplasm of lower-inner quadrant of right breast of female, estrogen receptor positive (HCC) , Bone metastases (HCC) , Malignant neoplasm metastatic to both lungs (HCC) For CT ABD/PEL W IVCON Routine order Administer, As Directed One Time Only, via Oral, Rectal, both Oral and Rectal, Enteric Tube, Stoma or Indwelling Catheter, Enteric Contrast as designated per enteric contrast guidelines 1 Each 0 07/30/2022 Active Start: 07-06-2022 End: 07-07-2022 enteric contrast (will be pr ovided with radiology test) Indications: Malignant neoplasm of lower-inner quadrant of right breast of female, estrogen receptor positive (HCC) , Bone metastases (HCC) , Malignant neoplasm metastatic to both lungs (HCC) For CT CHESTABD/PEL W IVCON Routine order Administer, As Directed One Time Only, via Oral, Rectal, both Oral and Rectal, Enteric Tube, Stoma or Indwelling Catheter, Enteric Contrast as designated per enteric contrast guidelines 1 Each 0 07/06/2022 07/07/2022 Active Start: 04-14-2022 End: 04-15-2022 enteric contrast (will be pr ovided with radiology test) Indications: Malignant neoplasm of lower-inner quadrant of right breast of female, estrogen receptor positive (HCC) , Bone metastases (HCC) For CT CHESTABD/PEL W IVCON Routine order Administer, As Directed One Time Only, via Oral, Rectal, both Oral and Rectal, Enteric Tube, Stoma or Indwelling Catheter, Enteric Contrast as designated per enteric contrast guidelines 1 Each 0 04/14/2022 04/15/2022 Active Start: 12-23-2021 End: 12-24-2021 enteric contrast (will be pr ovided with radiology test) Indications: Malignant neoplasm of lower-inner quadrant of right breast of female, estrogen receptor positive (HCC) , Bone metastases (HCC) , Malignant neoplasm metastatic to both lungs (HCC) , Skin, 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) For CT CHESTABD/PEL W IVCON Routine order Administer, As Directed One Time Only, via Oral, Rectal, both Oral and Rectal, Enteric Tube, Stoma or Indwelling Catheter, Enteric Contrast as designated per enteric contrast guidelines 1 Each 0 12/23/2021 12/24/2021 Active Start: 10-21-2021 End: 10-22-2021 enteric contrast (will be pr ovided with radiology test) Indications: Malignant neoplasm of lower-inner quadrant of right breast of female, estrogen receptor positive (HCC) , Bone metastases (HCC) , Skin, 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) , Chemotherapy-induced cardiomyopathy (HCC) , Malignant neoplasm of right breast in female, estrogen receptor positive, unspecified site of breast (HCC) For CT CHESTABD/PEL W IVCON Routine order Administer, As Directed One Time Only, via Oral, Rectal, both Oral and Rectal, Enteric Tube, Stoma or Indwelling Catheter, Enteric Contrast as designated per enteric contrast guidelines 1 Each 0 10/21/2021 10/22/2021 Active Comment on above: For CT CHESTABD/PEL W IVCON Routine order Administer, As Directed One Time Only, via Oral, Rectal, both Oral and Rectal, Enteric Tube, Stoma or Indwelling Catheter, Enteric Contrast as designated per enteric contrast guidelines For CT ABD/PEL W IVC ON Routine order Administer, As Directed One Time Only, via Oral, Rectal, both Oral and Rectal, Enteric Tube, Stoma or Indwelling Catheter, Enteric Contrast as designated per enteric contrast guidelines iv contrast (will be provided with radiology test) (20 sources) Start: 12-12-2024 End: 12-13-2024 iv contrast (will be provided with radiology test) Indications: Malignant neoplasm of lower-inner quadrant of right breast of female, estrogen receptor positive (HCC) , HER2-positive carcinoma of breast (HCC) , Malignant neoplasm metastatic to bone (HCC) , Malignant neoplasm metastatic to both lungs (HCC) , Chemotherapy-induced cardiomyopathy (HCC) CT Chest ABD/PEL-Inject, intravenously, once for 1 dose.No IV access, insert saline lock prior to the beginning of sedation, infusion, injection of imaging exam. Discontinue saline lock post exam. If Pt. has a central line or IVAD, may access for administration according to line specific nursing protocol. Once exam is complete flush line and de-access according to line specific nursing protocol in the CT contrast administration guidelines link. 1 each 12/12/2024 12/13/2024 Active Start: 08-15-2024 iv contrast (w ill be provided with radiology test) Indications: Malignant neoplasm of lower-inner quadrant of right breast of female, estrogen receptor positive (HCC) , Malignant neoplasm metastatic to bone (HCC) , Malignant neoplasm metastatic to both lungs (HCC) CT Chest W -Inject, intravenously, once for 1 dose.No IV access, insert saline lock prior to the beginning of sedation, infusion, injection of imaging exam. Discontinue saline lock post exam. If Pt. has a central line or IVAD, may access for administration according to line specific nursing protocol. Once exam is complete flush line and de-access according to line specific nursing protocol in the CT contrast administration guidelines link. 1 Each 08/15/2024 Active Start: 08-15-2024 iv contrast (w ill be provided with radiology test) Indications: Malignant neoplasm of lower-inner quadrant of right breast of female, estrogen receptor positive (HCC) , Malignant neoplasm metastatic to bone (HCC) , Malignant neoplasm metastatic to both lungs (HCC) CT ABD/PEL -Inject, intravenously, once for 1 dose.No IV access, insert saline lock prior to the beginning of sedation, infusion, injection of imaging exam. Discontinue saline lock post exam. If Pt. has a central line or IVAD, may access for administration according to line specific nursing protocol. Once exam is complete flush line and de-access according to line specific nursing protocol in the CT contrast administration guidelines link. 1 Each 08/15/2024 Active Start: 03-21-2024 End: 06-13-2024 iv contrast (will be provide d with radiology test) Indications: Malignant neoplasm of lower-inner quadrant of right breast of female, estrogen receptor positive (HCC) , Malignant neoplasm metastatic to bone (HCC) , Malignant neoplasm metastatic to both lungs (HCC) CT ABD/PEL -Inject, intravenously, once for 1 dose.No IV access, insert saline lock prior to the beginning of sedation, infusion, injection of imaging exam. Discontinue saline lock post exam. If Pt. has a central line or IVAD, may access for administration according to line specific nursing protocol. Once exam is complete flush line and de-access according to line specific nursing protocol in the CT contrast administration guidelines link. 1 Each 03/21/2024 06/13/2024 Discontinued Start: 03-21-2024 End: 06-13-2024 iv contrast (will be provide d with radiology test) Indications: Malignant neoplasm of lower-inner quadrant of right breast of female, estrogen receptor positive (HCC) , Malignant neoplasm metastatic to bone (HCC) , Malignant neoplasm metastatic to both lungs (HCC) CT Chest W -Inject, intravenously, once for 1 dose.No IV access, insert saline lock prior to the beginning of sedation, infusion, injection of imaging exam. Discontinue saline lock post exam. If Pt. has a central line or IVAD, may access for administration according to line specific nursing protocol. Once exam is complete flush line and de-access according to line specific nursing protocol in the CT contrast administration guidelines link. 1 Each 03/21/2024 06/13/2024 Discontinued Start: 03-21-2024 iv contrast (w ill be provided with radiology test) Indications: Malignant neoplasm of lower-inner quadrant of right breast of female, estrogen receptor positive (HCC) , Malignant neoplasm metastatic to bone (HCC) , Malignant neoplasm metastatic to both lungs (HCC) CT ABD/PEL -Inject, intravenously, once for 1 dose.No IV access, insert saline lock prior to the beginning of sedation, infusion, injection of imaging exam. Discontinue saline lock post exam. If Pt. has a central line or IVAD, may access for administration according to line specific nursing protocol. Once exam is complete flush line and de-access according to line specific nursing protocol in the CT contrast administration guidelines link. 1 Each 03/21/2024 Active Start: 03-21-2024 iv contrast (w ill be provided with radiology test) Indications: Malignant neoplasm of lower-inner quadrant of right breast of female, estrogen receptor positive (HCC) , Malignant neoplasm metastatic to bone (HCC) , Malignant neoplasm metastatic to both lungs (HCC) CT Chest W -Inject, intravenously, once for 1 dose.No IV access, insert saline lock prior to the beginning of sedation, infusion, injection of imaging exam. Discontinue saline lock post exam. If Pt. has a central line or IVAD, may access for administration according to line specific nursing protocol. Once exam is complete flush line and de-access according to line specific nursing protocol in the CT contrast administration guidelines link. 1 Each 03/21/2024 Active Start: 12-14-2023 End: 12-15-2023 iv contrast (will be provide d with radiology test) Indications: Malignant neoplasm of lower-inner quadrant of right breast of female, estrogen receptor positive (HCC) , Malignant neoplasm metastatic to lung, unspecified laterality (HCC) , Malignant neoplasm metastatic to bone (HCC) , HER2-positive carcinoma of breast (HCC) , Chemotherapy-induced cardiomyopathy (HCC) , Chemotherapy-induced neuropathy (HCC) CT Chest ABD/PEL-Inject, intravenously, once for 1 dose.No IV access, insert saline lock prior to the beginning of sedation, infusion, injection of imaging exam. Discontinue saline lock post exam. If Pt. has a central line or IVAD, may access for administration according to line specific nursing protocol. Once exam is complete flush line and de-access according to line specific nursing protocol in the CT contrast administration guidelines link. 1 Each 0 12/14/2023 12/15/2023 Start: 12-14-2023 End: 07-11-2024 iv contrast (will be provide d with radiology test) Indications: Malignant neoplasm of lower-inner quadrant of right breast of female, estrogen receptor positive (HCC) , Malignant neoplasm metastatic to lung, unspecified laterality (HCC) , Malignant neoplasm metastatic to bone (HCC) , HER2-positive carcinoma of breast (HCC) , Chemotherapy-induced cardiomyopathy (HCC) , Chemotherapy-induced neuropathy (HCC) CT Chest ABD/PEL-Inject, intravenously, once for 1 dose.No IV access, insert saline lock prior to the beginning of sedation, infusion, injection of imaging exam. Discontinue saline lock post exam. If Pt. has a central line or IVAD, may access for administration according to line specific nursing protocol. Once exam is complete flush line and de-access according to line specific nursing protocol in the CT contrast administration guidelines link. 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 Discontinue saline lock post exam. If Pt. has a central line or IVAD, may access for administration according to line specific nursing protocol. Once exam is complete flush line and de-access according to line specific nursing protocol in the CT contrast administration guidelines link. 1 Each 0 12/22/2022 12/23/2022 Active Start: 07-30-2022 End: 08-30-2023 iv contrast (will be provide d with radiology test) Indications: Malignant neoplasm of lower-inner quadrant of right breast of female, estrogen receptor positive (HCC) , Bone metastases , Malignant neoplasm metastatic to both lungs (HCC) CT ABD/PEL -Inject, intravenously, once for 1 dose.No IV access, insert saline lock prior to the beginning of sedation, infusion, injection of imaging exam. Discontinue saline lock post exam. If Pt. has a central line or IVAD, may access for administration according to line specific nursing protocol. Once exam is complete flush line and de-access according to line specific nursing protocol in the CT contrast administration guidelines link. 1 Each 0 07/30/2022 08/30/2023 Discontinued Start: 07-30-2022 End: 08-30-2023 iv contrast (will be provide d with radiology test) Indications: Malignant neoplasm of lower-inner quadrant of right breast of female, estrogen receptor positive (HCC) , Bone metastases , Malignant neoplasm metastatic to both lungs (HCC) CT Chest W -Inject, intravenously, once for 1 dose.No IV access, insert saline lock prior to the beginning of sedation, infusion, injection of imaging exam. Discontinue saline lock post exam. If Pt. has a central line or IVAD, may access for administration according to line specific nursing protocol. Once exam is complete flush line and de-access according to line specific nursing protocol in the CT contrast administration guidelines link. 1 Each 0 07/30/2022 08/30/2023 Discontinued Start: 07-30-2022 iv contrast (w ill be provided with radiology test) Indications: Malignant neoplasm of lower-inner quadrant of right breast of female, estrogen receptor positive (HCC) (HCC) , Bone metastases , Malignant neoplasm metastatic to both lungs (HCC) CT ABD/PEL -Inject, intravenously, once for 1 dose.No IV access, insert saline lock prior to the beginning of sedation, infusion, injection of imaging exam. Discontinue saline lock post exam. If Pt. has a central line or IVAD, may access for administration according to line specific nursing protocol. Once exam is complete flush line and de-access according to line specific nursing protocol in the CT contrast administration guidelines link. 1 Each 0 07/30/2022 Active Start: 07-30-2022 iv contrast (w ill be provided with radiology test) Indications: Malignant neoplasm of lower-inner quadrant of right breast of female, estrogen receptor positive (HCC) (HCC) , Bone metastases , Malignant neoplasm metastatic to both lungs (HCC) CT Chest W -Inject, intravenously, once for 1 dose.No IV access, insert saline lock prior to the beginning of sedation, infusion, injection of imaging exam. Discontinue saline lock post exam. If Pt. has a central line or IVAD, may access for administration according to line specific nursing protocol. Once exam is complete flush line and de-access according to line specific nursing protocol in the CT contrast administration guidelines link. 1 Each 0 07/30/2022 Active Start: 07-30-2022 iv contrast (w ill be provided with radiology test) Indications: Malignant neoplasm of lower-inner quadrant of right breast of female, estrogen receptor positive (HCC) , Bone metastases , Malignant neoplasm metastatic to both lungs (HCC) CT ABD/PEL -Inject, intravenously, once for 1 dose.No IV access, insert saline lock prior to the beginning of sedation, infusion, injection of imaging exam. Discontinue saline lock post exam. If Pt. has a central line or IVAD, may access for administration according to line specific nursing protocol. Once exam is complete flush line and de-access according to line specific nursing protocol in the CT contrast administration guidelines link. 1 Each 0 07/30/2022 Active Start: 07-30-2022 iv contrast (w ill be provided with radiology test) Indications: Malignant neoplasm of lower-inner quadrant of right breast of female, estrogen receptor positive (HCC) , Bone metastases , Malignant neoplasm metastatic to both lungs (HCC) CT Chest W -Inject, intravenously, once for 1 dose.No IV access, insert saline lock prior to the beginning of sedation, infusion, injection of imaging exam. Discontinue saline lock post exam. If Pt. has a central line or IVAD, may access for administration according to line specific nursing protocol. Once exam is complete flush line and de-access according to line specific nursing protocol in the CT contrast administration guidelines link. 1 Each 0 07/30/2022 Active Start: 07-30-2022 iv contrast (w ill be provided with radiology test) Indications: Malignant neoplasm of lower-inner quadrant of right breast of female, estrogen receptor positive (HCC) , Bone metastases (HCC) , Malignant neoplasm metastatic to both lungs (HCC) CT ABD/PEL -Inject, intravenously, once for 1 dose.No IV access, insert saline lock prior to the beginning of sedation, infusion, injection of imaging exam. Discontinue saline lock post exam. If Pt. has a central line or IVAD, may access for administration according to line specific nursing protocol. Once exam is complete flush line and de-access according to line specific nursing protocol in the CT contrast administration guidelines link. 1 Each 0 07/30/2022 Active Start: 07-30-2022 iv contrast (w ill be provided with radiology test) Indications: Malignant neoplasm of lower-inner quadrant of right breast of female, estrogen receptor positive (HCC) , Bone metastases (HCC) , Malignant neoplasm metastatic to both lungs (HCC) CT Chest W -Inject, intravenously, once for 1 dose.No IV access, insert saline lock prior to the beginning of sedation, infusion, injection of imaging exam. Discontinue saline lock post exam. If Pt. has a central line or IVAD, may access for administration according to line specific nursing protocol. Once exam is complete flush line and de-access according to line specific nursing protocol in the CT contrast administration guidelines link. 1 Each 0 07/30/2022 Active Start: 07-06-2022 End: 07-07-2022 iv contrast (will be provide d with radiology test) Indications: Malignant neoplasm of lower-inner quadrant of right breast of female, estrogen receptor positive (HCC) , Bone metastases (HCC) , Malignant neoplasm metastatic to both lungs (HCC) CT Chest ABD/PEL-Inject, intravenously, once for 1 dose.No IV access, insert saline lock prior to the beginning of sedation, infusion, injection of imaging exam. Discontinue saline lock post exam. If Pt. has a central line or IVAD, may access for administration according to line specific nursing protocol. Once exam is complete flush line and de-access according to line specific nursing protocol in the CT contrast administration guidelines link. 1 Each 0 07/06/2022 07/07/2022 Active Start: 04-14-2022 End: 04-15-2022 iv contrast (will be provide d with radiology test) Indications: Malignant neoplasm of lower-inner quadrant of right breast of female, estrogen receptor positive (HCC) , Bone metastases (HCC) CT Chest ABD/PEL-Inject, intravenously, once for 1 dose.No IV access, insert saline lock prior to the beginning of sedation, infusion, injection of imaging exam. Discontinue saline lock post exam. If Pt. has a central line or IVAD, may access for administration according to line specific nursing protocol. Once exam is complete flush line and de-access according to line specific nursing protocol in the CT contrast administration guidelines link. 1 Each 0 04/14/2022 04/15/2022 Active Start: 12-23-2021 End: 12-24-2021 iv contrast (will be provide d with radiology test) Indications: Malignant neoplasm of lower-inner quadrant of right breast of female, estrogen receptor positive (HCC) , Bone metastases (HCC) , Malignant neoplasm metastatic to both lungs (HCC) , Skin, 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) CT Chest ABD/PEL-Inject, intravenously, once for 1 dose.No IV access, insert saline lock prior to the beginning of sedation, infusion, injection of imaging exam. Discontinue saline lock post exam. If Pt. has a central line or IVAD, may access for administration according to line specific nursing protocol. Once exam is complete flush line and de-access according to line specific nursing protocol in the CT contrast administration guidelines link. 1 Each 0 12/23/2021 12/24/2021 Active Start: 10-21-2021 End: 10-22-2021 iv contrast (will be provide d with radiology test) Indications: Malignant neoplasm of lower-inner quadrant of right breast of female, estrogen receptor positive (HCC) , Bone metastases (HCC) , Skin, 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) , Chemotherapy-induced cardiomyopathy (HCC) , Malignant neoplasm of right breast in female, estrogen receptor positive, unspecified site of breast (HCC) CT Chest ABD/PEL-Inject, intravenously, once for 1 dose.No IV access, insert saline lock prior to the beginning of sedation, infusion, injection of imaging exam. Discontinue saline lock post exam. If Pt. has a central line or IVAD, may access for administration according to line specific nursing protocol. Once exam is complete flush line and de-access according to line specific nursing protocol in the CT contrast administration guidelines link. 1 Each 0 10/21/2021 10/22/2021 Active Comment on above: CT Chest ABD/PEL-Inj ect, intravenously, once for 1 dose.No IV access, insert saline lock prior to the beginning of sedation, infusion, injection of imaging exam. Discontinue saline lock post exam. If Pt. has a central line or IVAD, may access for administration according to line specific nursing protocol. Once exam is complete flush line and de-access according to line specific nursing protocol in the CT contrast administration guidelines link. CT ABD/PEL -Inject, intravenously, once for 1 dose.No IV access, insert saline lock prior to the beginning of sedation, infusion, injection of imaging exam. Discontinue saline lock post exam. If Pt. has a central line or IVAD, may access for administration according to line specific nursing protocol. Once exam is complete flush line and de-access according to line specific nursing protocol in the CT contrast administration guidelines link. CT Chest W -Inject, intravenously, once for 1 dose.No IV access, insert saline lock prior to the beginning of sedation, infusion, injection of imaging exam. Discontinue saline lock post exam. If Pt. has a central line or IVAD, may access for administration according to line specific nursing protocol. Once exam is complete flush line and de-access according to line specific nursing protocol in the CT contrast administration guidelines link. levoFLOXacin 500 mg oral tablet (4 sources) Quinolone Antimicrobial Start: 01-04-20 End: 01-14-20 take 1 tablet by mouth once daily levoFLOXacin (LEVAQUIN) 500 mg tablet Take 1 tablet by mouth once daily for 10 days. 10 tablet 0 01/04/2024 01/14/2024 Active lidocaine 25 mg/ml / prilocaine 25 mg/ml topical cream (20 sources) Antiarrhythmic, Amide Local Anesthetic Start: 09-30-19 End: 09-29-19 lidocaine-prilocaine (EMLA) 2.5-2.5 % cream Indications: Malignant neoplasm of lower-inner quadrant of right breast of female, estrogen receptor positive (HCC) , Malignant neoplasm metastatic to lung, unspecified laterality (HCC) , Lung nodules , Encounter for monitoring cardiotoxic drug therapy Apply to affected area as needed. 15 g 3 09/29/2022 09/29/2023 Active Start: 09-25-2020 End: 09-25-2021 lidocaine-prilocaine (EMLA) 2.5-2.5 % cream Indications: Malignant neoplasm of lower-inner quadrant of right breast of female, estrogen receptor positive (HCC) , Malignant neoplasm metastatic to lung, unspecified laterality (HCC) , Lung nodules , Encounter for monitoring cardiotoxic drug therapy Apply to affected area as needed. 15 g 3 09/25/2020 09/25/2021 Active Comment on above: Apply to affected ar ea as needed. losartan potassium 100 mg oral tablet (20 sources) Angiotensin 2 Receptor Ruth Start: 08-16-2024 take 1 tablet by mouth once daily losartan (Cozaar) 100 mg tablet Take 1 tablet (100 mg) by mouth once daily. for blood pressure 08/16/2024 Active Start: 02-26-2020 take 2 tablets by [facility] once daily losartan (COZAAR) 50 mg tablet Take 2 tablets by mouth once daily. 02/26/2020 Active Start: 01-22-2020 End: 02-03-2024 take 1 tablet by mouth once daily Losartan 100 mg tablet Active 100 mg PO DAILY February 03, 2024 1:19pm Start: 05-31-2017 End: 01-22-2020 take 1 tablet by mouth once daily Losartan 50 mg tablet Discontinued 50 mg PO daily June 29, 2019 2:00pm January 22, 2020 3:01pm Start: 12-01-2016 take 1 tablet by [facility] once daily LOSARTAN POTASSIUM 50 MG TABS One tablet by mouth daily LOSARTAN POTASSIUM [id number] Mayco Galeano MD Comment on above: Take 2 tablets by [facility] once daily. metoprolol tartrate 25 mg oral tablet (20 sources) beta-Adrenergic Ruth Start: 01-22-2020 End: 11-09-2024 take 1 tablet by mouth twice daily metoprolol tartrate, short acting, (LOPRESSOR) 25 mg tablet Take 1 tablet by mouth twice daily 180 tablet 11/09/2024 Active Start: 01-22-2020 End: 01-22-2020 take 1 tablet by mouth twice daily Metoprolol Succinate 25 mg tablet extended release 24 hr Discontinued 25 mg PO TWICE A DAY January 22, 2020 12:00am January 22, 2020 2:46pm Comment on above: Take 1 tablet by chito twice daily. Take 1 tablet by [facility] twice daily Multivitamin preparation (14 sources) Start: 11-26-2022 take 1 tablet by mouth once daily Multivitamin Active 1 TABLET PO DAILY November 26, 2022 10:18am Start: 11-26-2022 take 1 tablet by [facility] once daily Multivitamin Active 1 TABLET PO DAILY November 26, 2022 11:18am Start: 03-29-2019 Multivitamin A ctive 1 EACH PO DAILY March 29, 2019 4:23pm Start: 03-29-2019 End: 11-26-2022 Multivitamin Discontinued 1 EACH PO DAILY March 28, 2019 11:00pm November 26, 2022 10:18am Start: 03-29-2019 End: 11-26-2022 Multivitamin Discontinued 1 EACH PO DAILY March 29, 2019 12:00am November 26, 2022 11:18am Start: 03-29-2019 Multivitamin A ctive 1 EACH PO DAILY March 28, 2019 11:00pm Start: 03-29-2019 Multivitamin A ctive 1 EACH PO DAILY March 29, 2019 12:00am multivitamin tablet (20 sources) take 1 tablet by chito [facility] once daily multivitamin tablet Take 1 tablet by mouth once daily. Active take 1 tablet by mouth once vivek y multivitamin tablet Take 1 tablet by mouth once daily. 0 Active Comment on above: Take 1 tablet by chito [facility] once daily. Multivitamin tablet (1 source) Start: 11-27-19 Multivitamin tablet Active 1 {tbl} PO DAILY November 26, 2022 11:18am naproxen sodium 220 mg oral capsule (10 sources) Nonsteroidal Anti-inflammatory Drug Start: 03-29-20 take 1 capsule by mouth every eight hours as needed for pain Naproxen Sodium 220 MG capsule Active 220 mg PO EVERY 8 HOURS NEEDED as needed for Pain Or Fever March 29, 2019 12:00am perflutren lipid microspheres 1.3 mL in NaCl (PF) 0.9% 10 mL injection (DEFINITY) (20 sources) Start: 12-23-19 End: 03-22-20 perflutren lipid microspheres 1.3 mL in NaCl (PF) 0.9% 10 mL injection (DEFINITY) Start: 10-20-2022 End: 01-19-2024 perflutren lipid microsphere s 1.3 mL in NaCl (PF) 0.9% 10 mL injection (DEFINITY) Start: 06-15-2022 End: 09-14-2023 perflutren lipid microsphere s 1.3 mL in NaCl (PF) 0.9% 10 mL injection (DEFINITY) Start: 04-14-2022 End: 07-14-2023 perflutren lipid microsphere s 1.3 mL in NaCl (PF) 0.9% 10 mL injection (DEFINITY) Start: 01-07-2022 End: 04-08-2023 perflutren lipid microsphere s 1.3 mL in NaCl (PF) 0.9% 10 mL injection (DEFINITY) Start: 10-21-2021 End: 01-20-2023 perflutren lipid microsphere s 1.3 mL in NaCl (PF) 0.9% 10 mL injection (DEFINITY) Start: 07-02-2021 End: 10-01-2022 perflutren lipid microsphere s 1.3 mL in NaCl (PF) 0.9% 10 mL injection (DEFINITY) Start: 01-08-2021 End: 04-09-2022 perflutren lipid microsphere s 1.3 mL in NaCl (PF) 0.9% 10 mL injection (DEFINITY) Start: 09-25-2020 End: 12-25-2021 perflutren lipid microsphere s 1.3 mL in NaCl (PF) 0.9% 10 mL injection (DEFINITY) Start: 07-01-2020 End: 09-30-2021 perflutren lipid microsphere s 1.3 mL in NaCl (PF) 0.9% 10 mL injection (DEFINITY) potassium chloride 20 meq powder for oral solution (20 sources) Start: 04-25-2023 End: 12-14-2023 take 20 mEq by mouth once daily potassium chloride (Klor-Con) 20 mEq packet Take 20 mEq by mouth once daily. 04/25/2023 Active Start: 08-18-2022 End: 04-06-2023 take 20 mEq by mouth once daily potassium chloride (KL OR-CON) 20 mEq packet Take 20 mEq by mouth once daily. 30 Packet 5 08/18/2022 04/06/2023 Discontinued Start: 05-25-2022 End: 07-06-2022 take 1 tablet by mouth once daily potassium chloride ER (K-DUR, KLOR-CON) 20 mEq tablet Take 1 tablet by mouth once daily. 30 tablet 2 05/25/2022 07/06/2022 Discontinued Comment on above: Take 1 tablet by [facility] once daily. Take 20 mEq by mouth once daily. pregabalin 150 mg oral capsule (20 sources) Start: 08-13-19 End: 11-06-19 take 1 capsule by mouth twice daily pregabalin (LYRICA) 150 mg capsule Indications: Malignant neoplasm of lower-inner quadrant of right breast of female, estrogen receptor positive (HCC) , Malignant neoplasm metastatic to bone (HCC) , Chemotherapy-induced neuropathy (HCC) Take 1 capsule by mouth two times a day for 90 days. 180 capsule 2 08/07/2024 Active Comment on above: Take 1 capsule by [facility] twice daily for 90 days. TAKE 1 CAPSULE BY [facility] TWICE DAILY. promethazine hydrochloride 25 mg oral tablet (20 sources) Phenothiazine Start: 03-03-20 End: 04-26-20 23 take 1 tablet by mouth every six hours as needed promethazine (PHENERGAN) 25 mg tablet Take 1 tablet by mouth every 6 hours as needed. FOR NAUSEA 30 tablet 2 04/26/2023 Active Comment on above: Take 1 tablet by [facility] every 6 hours as needed. FOR NAUSEA tucatinib 50 mg oral tablet (20 sources) Start: 11-22-19 take 1 tablet by mouth every twelve hours Tucatinib (Tukysa) 50 mg tablet Active 200 mg PO Q12H November 22, 2023 12:00am Start: 08-30-2023 End: 07-17-2024 tucatinib (TUKYSA) 150 mg ta blet Indications: Malignant neoplasm of lower-inner quadrant of right breast of female, estrogen receptor positive (HCC) , Malignant neoplasm metastatic to both lungs (HCC) , HER2-positive carcinoma of breast (HCC) Take 1 tablet (150 mg) by mouth two times a day with 1 other tucatinib prescription for 200 mg total. 60 tablet 11 07/17/2024 Active Start: 08-30-2023 End: 07-17-2024 tucatinib (TUKYSA) 50 mg tab let Indications: Malignant neoplasm of lower-inner quadrant of right breast of female, estrogen receptor positive (HCC) , Malignant neoplasm metastatic to both lungs (HCC) , HER2-positive carcinoma of breast (HCC) Take 1 tablet (50 mg) by mouth two times a day with 1 other tucatinib prescription for 200 mg total. 60 tablet 11 07/17/2024 Active Comment on above: Take 1 tablet (50 mg ) by mouth two times a day with 1 other tucatinib prescription for 200 mg total. Take 1 tablet (150 m g) by mouth two times a day with 1 other tucatinib prescription for 200 mg total. Completed/Discontinued Medications Medication Drug Class(es) Dates Sig (Normalized) Sig (Original) anastrozole 1 mg oral tablet (4 sources) Aromatase Inhibitor Start: 12-01-2016 take 1 tablet by mouth once daily ANASTROZOLE 1 MG TABS One tablet by mouth daily ANASTROZOLE [id number] Mayco Galeano MD docusate (3 sources) Start: 12-01-2016 take 1 tablet by mouth once daily EQL HEARTBURN PREVENTION 10 MG TABS One tablet by mouth daily FAMOTIDINE [id number] Mayco Galeano MD doxycycline monohydrate 100 mg oral tablet (13 sources) Tetracycline-clas s Drug Start: 09-26-2024 End: 10-03-2024 take 1 tablet by mouth twice daily doxycycline monohydrate 100 mg tablet Indications: Community acquired pneumonia of right lung, unspecified part of lung Take 1 tablet by mouth two times a day for 7 days. 14 tablet 09/26/2024 10/03/2024 Start: 04-03-2019 End: 04-15-2019 take 1 capsule by mouth twice daily Doxycycline Monohydrate 100 MG capsule Discontinued 100 mg PO TWICE A DAY 25 03April 03, 2019 12:00am April 12, 2019 1:00am April 15, 2019 1:10am ergocalciferol 1.25 mg oral capsule (20 sources) Provitamin D2 Compound Start: 02-22-2021 End: 04-06-2023 ergocalciferol 50,000 unit capsule (VITAMIN D2, DRISDOL) Take one capsule twice a week for 8 weeks. 16 capsule 0 02/22/2021 04/06/2023 Discontinued Comment on above: Take one capsule twi ce a week for 8 weeks. famotidine 10 mg oral tablet (11 sources) Histamine-2 Receptor Antagonist Start: 05-31-2017 End: 11-29-2017 take 1 tablet by mouth once daily Famotidine 10 mg tablet Discontinued 10 mg PO daily May 31, 2017 1:00am November 29, 2017 2:36pm Start: 12-01-2016 take 1 tablet by [facility] once daily EQL HEARTBURN PREVENTION 10 MG TABS One tablet by mouth daily FAMOTIDINE [id number] Mayco Galeano MD gabapentin 100 mg oral capsule (14 sources) Anti-epileptic Agent Start: 05-31-2017 End: 09-15-2021 take 3 capsules by mouth at bedtime Gabapentin 100 mg capsule Discontinued 300 mg PO AT BEDTIME May 31, 2017 1:00am September 15, 2021 9:46am Start: 05-31-2017 End: 09-15-2021 take 300 mg by mouth at bedtime Gabapentin Discontinue d 300 MG PO AT BEDTIME May 31, 2017 1:00am September 15, 2021 9:46am Start: 12-01-2016 take 1 tablet by [facility] once daily GABAPENTIN 100 MG CAPS One tablet by mouth daily GABAPENTIN [id number] Mayco Galeano MD homatropine methylbromide 0.3 mg/ml / HYDROcodone bitartrate 1 mg/ml oral solution (10 sources) Opioid Agonist, Cholinergic Muscarinic Agonist Start: 04-19-2016 End: 11-29-2017 Hydrocodone-Homatropine 5 ML syrup Discontinued 5 mL PO EVERY 6 HOURS NEEDED as needed for Cough 60 April 19, 2016 1:00am November 29, 2017 2:37pm Start: 04-19-2016 End: 11-29-2017 take 1 mL by mouth every six hours as needed Hydrocodone-Homatropine Discontinued 5 M L PO EVERY 6 HOURS NEEDED 60 April 19, 2016 1:00am November 29, 2017 2:37pm 5 ml hyaluronidase-oysk 2000 unt/ml / trastuzumab-oysk 120 mg/ml injection (10 sources) Endoglycosidase, HER2/krista Receptor Antagonist Start: 06-19-2019 End: 01-22-2020 Smixzlaevpr-Xsurcrphqjjpu-Eb sk (Herceptin Hylecta) 600 mg-10,000 unit/5 mL solution Discontinued 5 mL SC every 3 weeks June 19, 2019 1:00am January 22, 2020 2:45pm hydrocortisone acetate 10 mg/ml / pramoxine hydrochloride 10 mg/ml rectal foam (2 sources) Corticosteroid Start: 08-17-2023 End: 05-21-2024 Hydrocortisone-Pramoxine (Proctofoam Hc) 1-1 % foam Discontinued 1 NMA RC AT BEDTIME 03 12August 17, 2023 12:00am May 21, 2024 11:10am Start: 08-17-2023 Hydrocortisone -Pramoxine (Proctofoam Hc) 1-1 % foam Active 1 APPLIC RC AT BEDTIME 03 12August 17, 2023 12:00am ibuprofen 600 mg oral tablet (20 sources) Nonsteroidal Anti-inflammatory Drug Start: 07-14-2021 End: 04-06-2023 take 1 tablet by mouth every six hours as needed ibuprofen (MOTRIN) 600 mg tablet Take 1 tablet by mouth every 6 hours as needed for pain. FOR PAIN. 20 tablet 0 07/14/2021 04/06/2023 Discontinued Comment on above: Take 1 tablet by chito [facility] every 6 hours as needed for pain. FOR PAIN. loperamide hydrochloride 2 mg oral capsule (20 sources) Opioid Agonist Start: 01-22-2020 End: 02-17-2023 take 1 capsule by mouth every six hours as needed Loperamide (Imodium A-D) 2 mg capsule Discontinued 2 mg PO EVERY 6 HOURS as needed January 22, 2020 12:00am February 17, 2023 1:39am loperamide HCl ( IMODIUM) 2 mg tab Take 2 mg by mouth as needed. Active take 1 tablet by mouth once for diarrhea loperamide (Imodium A-D) 2 mg tablet Take 1 tablet (2 mg) by mouth if needed for diarrhea. Active Comment on above: Take 2 mg by mouth a s needed. loratadine 10 mg oral tablet (20 sources) Start: 01-22-2020 End: 02-17-2023 take 1 tablet by mouth once daily Loratadine (Claritin) 10 mg tablet Discontinued 10 mg PO DAILY January 22, 2020 12:00am February 17, 2023 1:39am Comment on above: Take 10 mg by mouth once daily. Multivitamin 1 EACH tablet (1 source) Start: 03-29-2019 End: 11-26-2022 Multivitamin 1 EACH tablet Discontinued 1 NMA PO DAILY March 29, 2019 12:00am November 26, 2022 11:18am Multivitamin With Folic Acid (9 sources) Start: 04-19-2016 End: 11-29-2017 take 1 tablet by mouth once daily Multivitamin With Folic Acid Discontinued 1 TABLET PO DAILY April 19, 2016 7:32pm November 29, 2017 2:36pm Start: 04-19-2016 End: 11-29-2017 take 1 tablet by mouth once daily Multivitamin With Folic Acid Discontinued 1 TABLET PO DAILY April 19, 2016 12:00am November 29, 2017 1:36pm Start: 04-19-2016 End: 11-29-2017 take 1 tablet by mouth once daily Multivitamin With Folic Acid Discontinued 1 TABLET PO DAILY April 19, 2016 1:00am November 29, 2017 2:36pm Multivitamin With Folic Acid 1 TABLET tablet (1 source) Start: 04-19-2016 End: 11-29-2017 take 1 tablet by mouth once daily Multivitamin With Folic Acid 1 TABLET tablet Discontinued 1 {tbl} PO DAILY April 19, 2016 1:00am November 29, 2017 2:36pm Pxddmlyonezu-Cq-Dfqi-Min erals (9 sources) Start: 06-02-2017 End: 05-09-2018 Kjhigqrhyzrx-Rh-Xlvf-Mi nerals Discontinued TABLET PO June 02, 2017 3:01pm May 09, 2018 4:32pm Start: 06-02-2017 End: 05-09-2018 Vgijuzlcvkdx-Xb-Rqrf-Mineral s Discontinued TABLET PO June 02, 2017 12:00am May 09, 2018 3:32pm Start: 06-02-2017 End: 05-09-2018 Odxraxcpehbb-Bz-Zvfo-Mineral s Discontinued TABLET PO June 02, 2017 1:00am May 09, 2018 4:32pm Hwypmptjylzb-Hz-Nnpg-Mineral s tablet (1 source) Start: 06-02-2017 End: 05-09-2018 Vzhwjhtmupfi-Wi-Giau-Mineral s tablet Discontinued {tbl} PO June 02, 2017 1:00am May 09, 2018 4:32pm Drug Treatment Unknown - unk nown (3 sources) No information a vailable. 1000 ml sodium chloride 9 mg /ml injection (20 sources) Start: 12-22-2023 End: 12-22-2023 NaCl 0.9% iv infusion Start: 07-01-2020 End: 03-22-2024 sodium chloride 0.9 % (flush ) 10 mL (BD POSIFLUSH) traMADol hydrochloride 50 mg oral tablet (10 sources) Opioid Agonist Start: 04-03-2019 End: 04-15-2019 take 1 tablet by mouth every six hours as needed for pain Tramadol 50 MG tablet Discontinued 50 mg PO EVERY 6 HOURS NEEDED as needed for Pain Or Fever 03 10April 03, 2019 7:14am April 07, 2019 12:00am April 15, 2019 1:09am trastuzumab-dttb 468 mg in NaCl 0.9% 297.2857 mL (ONTRUZANT) (7 sources) Start: 12-13-2024 End: 12-13-2024 468 mg (6 mg/kg/dose 78 kg Treatment plan Recorded weight), INTRAVENOUS, Administer over 30 Minutes, ONCE, 1 dose, On Amarilys 12/13/24 at 0830, Approx Total Volume - IMMEDIATE USE at [facility] - DO NOT SHAKE Refrigerate Start: 11-22-2024 End: 11-22-2024 468 mg (6 mg/kg/dose 78 kg T reatment plan Recorded weight), INTRAVENOUS, Administer over 30 Minutes, ONCE, 1 dose, On Amarilys 11/22/24 at 0930, Approx Total Volume - IMMEDIATE USE at [facility] - DO NOT SHAKE Refrigerate Start: 11-01-2024 End: 11-01-2024 468 mg (6 mg/kg/dose 78 kg T reatment plan Recorded weight), INTRAVENOUS, Administer over 30 Minutes, ONCE, 1 dose, On Amarilys 11/01/24 at 0800, Approx Total Volume - IMMEDIATE USE at [facility] - DO NOT SHAKE Refrigerate Start: 10-11-2024 End: 10-11-2024 468 mg (6 mg/kg/dose 78 kg T reatment plan Recorded weight), INTRAVENOUS, Administer over 30 Minutes, ONCE, 1 dose, On Amarilys 10/11/24 at 0800, Approx Total Volume - IMMEDIATE USE at [facility] - DO NOT SHAKE Refrigerate Start: 09-06-2024 End: 09-06-2024 468 mg (6 mg/kg/dose 78 kg T reatment plan Recorded weight), INTRAVENOUS, Administer over 30 Minutes, ONCE, 1 dose, On Amarilys 09/06/24 at 1430, Approx Total Volume - IMMEDIATE USE at [facility] - DO NOT SHAKE Refrigerate Start: 08-16-2024 End: 08-16-2024 468 mg (6 mg/kg/dose 78 kg T reatment plan Recorded weight), INTRAVENOUS, Administer over 30 Minutes, ONCE, 1 dose, On Amarilys 08/16/24 at 1500, Approx Total Volume exp 1400 08/25/24 (refrigerated) - DO NOT SHAKE Refrigerate Start: 07-26-2024 End: 07-26-2024 468 mg (6 mg/kg/dose 78 kg T reatment plan Recorded weight), INTRAVENOUS, Administer over 30 Minutes, ONCE, 1 dose, On Amarilys 07/26/24 at 1330, Approx Total Volume exp 0900 08/05/24 (refrigerated) DO NOT SHAKE Refrigerate trastuzumab-dttb 506.4 mg in NaCl 0.9% 299.1046 mL (ONTRUZANT) (4 sources) Start: 12-15-2023 End: 12-15-2023 trastuzumab-dttb 506.4 mg in NaCl 0.9% 299.1046 mL (ONTRUZANT) Start: 11-24-2023 End: 11-24-2023 trastuzumab-dttb 506.4 mg in NaCl 0.9% 299.1046 mL (ONTRUZANT) Start: 11-03-2023 End: 11-03-2023 trastuzumab-dttb 506.4 mg in NaCl 0.9% 299.1046 mL (ONTRUZANT) Start: 10-13-2023 End: 10-13-2023 trastuzumab-dttb 506.4 mg in NaCl 0.9% 299.1046 mL (ONTRUZANT) trastuzumab-dttb 506.4 mg in NaCl 0.9% 299.1143 mL (ONTRUZANT) (9 sources) Start: 07-05-2024 End: 07-05-2024 506.4 mg (6 mg/kg/dose 84.4 kg Treatment plan Recorded weight), INTRAVENOUS, Administer over 30 Minutes, ONCE, 1 dose, On Amarilys 07/05/24 at 1430, Approx Total Volume exp 0900 07/15/24 (refrigerated) - DO NOT SHAKE Refrigerate Start: 06-14-2024 End: 06-14-2024 506.4 mg (6 mg/kg/dose 84.4 kg Treatment plan Recorded weight), INTRAVENOUS, Administer over 30 Minutes, ONCE, 1 dose, On Amarilys 06/14/24 at 1330, Approx Total Volume exp 1100 06/24/24 (refrigerated) - DO NOT SHAKE Refrigerate Start: 05-24-2024 End: 05-24-2024 506.4 mg (6 mg/kg/dose 84.4 kg Treatment plan Recorded weight), INTRAVENOUS, Administer over 30 Minutes, ONCE, 1 dose, On Amarilys 05/24/24 at 1000, Approx Total Volume - IMMEDIATE USE at room temp DO NOT SHAKE Refrigerate Start: 05-04-2024 End: 05-04-2024 506.4 mg (6 mg/kg/dose 84.4 kg Treatment plan Recorded weight), INTRAVENOUS, Administer over 30 Minutes, ONCE, 1 dose, On Tue05/04/24 at 1400, Approx Total Volume exp 1230 05/14/24 (refrigerated) - DO NOT SHAKE Refrigerate Start: 04-12-2024 End: 04-12-2024 506.4 mg (6 mg/kg/dose 84.4 kg Treatment plan Recorded weight), INTRAVENOUS, Administer over 30 Minutes, ONCE, 1 dose, On Tue04/12/24 at 0900, Approx Total Volume -exp 0900 04/22/24 (refrigerated) - DO NOT SHAKE Refrigerate Start: 03-22-2024 End: 03-22-2024 506.4 mg (6 mg/kg/dose 84.4 kg Treatment plan Recorded weight), INTRAVENOUS, Administer over 30 Minutes, ONCE, 1 dose, On Tue03/22/24 at 1030, Approx Total Volume exp 1100 04/01/24 (refrigerated) - DO NOT SHAKE Refrigerate Start: 02-28-2024 End: 02-28-2024 506.4 mg (6 mg/kg/dose 84.4 kg Treatment plan Recorded weight), INTRAVENOUS, Administer over 30 Minutes, ONCE, 1 dose, On Tue02/28/24 at 0830, Approx Total Volume -exp 1000 03/08/24 (refrigerated) - DO NOT SHAKE Refrigerate Start: 02-08-2024 End: 02-08-2024 506.4 mg (6 mg/kg/dose 84.4 kg Treatment plan Recorded weight), INTRAVENOUS, Administer over 30 Minutes, ONCE, 1 dose, On Tue02/08/24 at 0830, Approx Total Volume - IMMEDIATE USE at room temp - DO NOT SHAKE Refrigerate Start: 01-16-2024 End: 01-16-2024 trastuzumab-dttb 506.4 mg in NaCl 0.9% 299.1143 mL (ONTRUZANT) triamcinolone acetonide 1 mg/ml topical cream (20 sources) Corticosteroid Start: 05-02-2024 End: 11-21-2024 triamcinolone acetonide (KENALOG) 0.1 % cream Apply to affected area two times a day. 453.6 g 2 05/02/2024 11/21/2024 Discontinued (Cost of medication) Start: 05-02-2024 End: 2024 triamcinolone (Kenalog) 0.1 % cream Apply 1 Application topically 2 times a day. 05/02/2024 2024 Discontinued (Med List Cleanup) Turmeric Root Extract (10 sources) Start: 11-29-2017 End: 05-09-2018 take 500 mg by mouth once daily Turmeric Root Extract Discontinued 500 MG PO daily November 29, 2017 2:37pm May 09, 2018 4:32pm Start: 11-29-2017 End: 05-09-2018 take 1 capsule by mouth once daily Turmeric Root Extract 500 mg capsule Discontinued 500 mg PO daily November 29, 2017 12:00am May 09, 2018 4:32pm Start: 11-29-2017 End: 05-09-2018 take 500 mg by mouth once daily Turmeric Root Extract Discontinued 500 MG PO daily November 28, 2017 11:00pm May 09, 2018 3:32pm Start: 11-29-2017 End: 05-09-2018 take 500 mg by mouth once daily Turmeric Root Extract Discontinued 500 MG PO daily November 29, 2017 12:00am May 09, 2018 4:32pm 100 ml zoledronic acid 0.04 mg/ml injection (1 source) Bisphosphonate Start: 01-16-2024 End: 01-16-2024 zoledronic bh-hukfpqxz-0.9NaCl 4 mg iv piggyback 100 mL (ZOMETA) zoledronic acid 3.3 mg in NaCl 0.9% 100 mL (ZOMETA) (3 sources) Start: 10-11-2024 End: 10-11-2024 3.3 mg, INTRAVENOUS, Administer over 15 Minutes, ONCE, 1 dose, On Tue10/11/24 at 0800, Approx Total Volume - IMMEDIATE USE at room temp Hazardous Potential Reproductive Risk Drug: Use appropriate PPE. Refrigerate. Exp: (24 HR) Start: 07-05-2024 End: 07-05-2024 3.3 mg, INTRAVENOUS, Adminis ter over 15 Minutes, ONCE, 1 dose, On Amarilys 07/05/24 at 1500, Hazardous Potential Reproductive Risk Drug: Use appropriate PPE. Refrigerate. Start: 04-12-2024 End: 04-12-2024 3.3 mg, INTRAVENOUS, Adminis ter over 15 Minutes, ONCE, 1 dose, On Amarilys 04/12/24 at 1000, Hazardous Potential Reproductive Risk Drug: Use appropriate PPE. Refrigerate. Problems Active Problems Problem Classification Problem Date Documented Date Episodic/Chronic Abdominal pain (4 sources) Right lower quadrant pain; Translations: [Right lower quadrant pain] 08-17-2023 Episodic Allergic reactions (4 sources) Eruption due to drug; Translations: [Generalized skin eruption due to drugs and medicaments taken internally] 05-02-2024 Episodic Cancer of breast (20 sources) Primary malignant neoplasm of female breast; Translations: [Malignant neoplasm of lower-inner quadrant of female breast] Onset: 02-21-20 16 11-30-2016 Chronic Comment on above: Current therapy: 1) Enhertu. Began 09/10/21Previous therapy:1)Taxotere/Herceptin/Perjeta.2) Herceptin/Perjeta.Discontinued 01/2021 for progressive disease. 3) Kadcyla 02/2021 through 07/2021.Discontinued secondary to significantworsening of neuropathy. 4. Currently on Herceptin and Xeloda combination . Cancer of breast (1 source) History of malignant neoplasm of breast; Translations: [Personal history of malignant neoplasm of breast] 2024 Episodic Cancer of prostate (1 source) Malignant tumor of prostate; Translations: [Malignant neoplasm of prostate] 11-23-2023 Chronic Chronic obstructive pulmonary disease and bronchiectasis (1 source) Bronchitis; Translations: [Bronchitis, not specified as acute or chronic] 2024 Episodic E Codes: Adverse effects of medical drugs (3 sources) Adverse effect of antineoplastic and immunosuppressive drugs, initial encounter; Translations: [Chemotherapy-induced cardiomyopathy (HCC)] Onset: 07-04-19 Episodic Essential hypertension (3 sources) Essential hypertension; Translations: [Essential (primary) hypertension] Onset: 06-16-1906-16-2023 Chronic Gastrointestinal hemorrhage (2 sources) Rectal hemorrhage; Translations: [Hemorrhage of anus and rectum] 08-17-2023 Episodic Maintenance chemotherapy; radiotherapy (10 sources) Patient encounter status; Translations: [Encounter for antineoplastic chemotherapy] 06-16-2019 Chronic Other aftercare (7 sources) Drug therapy finding; Translations: [Encounter for therapeutic drug level monitoring] Episodic Other aftercare (2 sources) Radiotherapy follow-up; Translations: [Encounter for follow-up examination after completed treatment for conditions other than malignant neoplasm] 08-10-2023 Episodic Other aftercare (3 sources) Long-term current use of drug therapy; Translations: [Encounter for therapeutic drug level monitoring] 01-05-2024 Episodic Other and ill-defined heart disease (4 sources) Heart disease; Translations: [Heart disease, unspecified] Onset: 06-16-1906-16-2023 Chronic Other bone disease and musculoskeletal deformities (20 sources) Idiopathic scoliosis of lumbar spine; Translations: [Other idiopathic scoliosis, lumbar region] Onset: 03-19-20 16 03-19-2016 Chronic Other diseases of veins and lymphatics (20 sources) Lymphedema; Translations: [Lymphedema, not elsewhere classified] Onset: 08-28-19 17 08-27-2016 Chronic Other lower respiratory disease (2 sources) Interstitial lung disease; Translations: [Interstitial pulmonary disease, unspecified] 01-04-2024 Chronic Other lower respiratory disease (1 source) Interstitial pulmonary disease, unspecified; Translations: [Interstitial pulmonary disease (HCC)] Onset: 01-04-20 Chronic Other lower respiratory disease (1 source) Multiple nodules of lung; Translations: [Other nonspecific abnormal finding of lung field] Episodic Other lower respiratory disease (5 sources) Dyspnea; Translations: [Dyspnea, unspecified] 02-16-2023 Episodic Other lower respiratory disease (3 sources) Dyspnea, unspecified; Translations: [Other respiratory abnormalities] 02-17-2023 Episodic Other lower respiratory disease (3 sources) Orthopnea; Translations: [Orthopnea] 01-04-2024 Episodic Other nervous system disorders (20 sources) Neuropathy; Translations: [Drug-induced polyneuropathy] Onset: 09-09-19 17 09-08-2016 Chronic Other nervous system disorders (20 sources) Neuropathy caused by chemical substance; Translations: [Drug-induced polyneuropathy] Onset: 06-16-19 Chronic Other nervous system disorders (1 source) Drug-induced polyneuropathy; 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)] Onset: 12-22-19 Chronic Other nutritional; endocrine; and metabolic disorders (10 sources) Obesity; Translations: [Obesity, unspecified] 09-14-2021 Chronic Other nutritional; endocrine; and metabolic disorders (1 source) Abnormal weight loss; Translations: [Abnormal weight loss] 05-23-2024 Episodic Other nutritional; endocrine; and metabolic disorders (5 sources) H/O: thyroid disorder; Translations: [Personal history of other endocrine, nutritional and metabolic disease] 05-23-2024 Episodic Other screening for suspected conditions (not mental disorders or infectious disease) (11 sources) Patient encounter status; Translations: [Encounter for screening mammogram for malignant neoplasm of breast] Episodic Other upper respiratory infections (1 source) Acute upper respiratory infection, unspecified; Translations: [URI, acute] Onset: 09-27-19 Episodic Kesha-; endo-; and myocarditis; cardiomyopathy (except that caused by tuberculosis or sexually transmitted disease) (20 sources) Cardiomyopathy associated with another disorder; 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] Onset: 12-01-19 17 11-30-2016 Chronic Pneumonia (except that caused by tuberculosis or sexually transmitted disease) (1 source) Pneumonia, unspecified organism; Translations: [Community acquired pneumonia of right lung, unspecified part of lung] Onset: 09-27-19 Episodic Secondary malignancies (20 sources) Secondary malignant neoplasm of lung; Translations: [Secondary malignant neoplasm of unspecified lung] Onset: 04-23-20 19 04-23-2019 Chronic Secondary malignancies (20 sources) Secondary malignant neoplasm of bone; Translations: [Secondary malignant neoplasm of bone] Onset: 02-18-20 21 02-17-2021 Chronic Secondary malignancies (20 sources) Secondary malignant neoplasm of skin; Translations: [Secondary malignant neoplasm of skin] Onset: 06-11-19 22 06-11-2021 Chronic Secondary malignancies (20 sources) Secondary malignant neoplasm of bilateral lungs; Translations: [Secondary malignant neoplasm of right lung] Onset: 06-16-19 Chronic Secondary malignancies (7 sources) Secondary malignant neoplasm of left lung; Translations: [Secondary malignant neoplasm of left lung] 02-04-2023 Chronic Secondary malignancies (2 sources) Secondary malignant neoplasm of bone; Translations: [Malignant neoplasm metastatic to bone (HCC)] Onset: 09-08-19 Chronic Secondary malignancies (2 sources) Secondary malignant neoplasm of unspecified lung; Translations: [Malignant neoplasm metastatic to lung, unspecified laterality (HCC)] Onset: 04-23-20 Chronic Secondary malignancies (2 sources) Secondary malignant neoplasm of right lung; Translations: [Malignant neoplasm metastatic to both lungs (HCC)] Onset: 04-23-20 Chronic Secondary malignancies (2 sources) Secondary malignant neoplasm of left lung; Translations: [Malignant neoplasm metastatic to both lungs (HCC)] Onset: 04-23-20 Chronic Secondary malignancies (7 sources) Secondary malignant neoplasm of right lung; Translations: [Secondary malignant neoplasm of right lung] 08-26-2023 Chronic Secondary malignancies (1 source) Secondary malignant neoplasm of skin; Translations: [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)] Onset: 09-09-19 Chronic Spondylosis; intervertebral disc disorders; other back problems (2 sources) Chronic sacroiliac joint pain; Translations: [Sacrococcygeal disorders, not elsewhere classified] Episodic Thyroid disorders (4 sources) Thyroid nodule; Translations: [Nontoxic single thyroid nodule] Chronic Unclassified (4 sources) Chemotherapy ; Translations: [Encounter for antineoplastic chemotherapy] Onset: 12-01-1911-30-2016 Unclassified (1 source) Radiology NM Onset: 08-22-19 Unclassified (1 source) Patient encounter status 2024 Unclassified (1 source) Acute cough; Translations: [Acute cough] Onset: 09-27-19 Past or Other Problems Problem Classification Problem Date Documented Da te Episodic/Chronic Coagulation and hemorrhagic disorders (20 sources) Platelet count below reference range; Translations: [Thrombocytopenia, unspecified] Onset: 12-22-2022 Resolved: 06-08-2023 12-22-2022 Chronic Mood disorders (1 source) Mood disorders Onset: 2024 2024 Other aftercare (1 source) Encounter for therapeutic drug level monitoring; Translations: [Encounter for therapeutic drug level monitoring] Onset: 02-09-2024 Episodic Other gastrointestinal disorders (20 sources) Diarrhea due to drug; Translations: [Toxic gastroenteritis and colitis] Onset: 07-26-2017 07-26-2017 Episodic Other lower respiratory disease (1 source) Orthopnea; Translations: [Orthopnea] Onset: 01-04-2024 Episodic Other nutritional; endocrine; and metabolic disorders (1 source) Personal history of other endocrine, nutritional and metabolic disease; Translations: [History of thyroid nodule] Onset: 08-30-2024 Episodic Residual codes; unclassified (2 sources) Estrogen receptor positive status [ER+]; Translations: [Malignant neoplasm of lower-inner quadrant of right breast of female, estrogen receptor positive (HCC)] Onset: 03-02-2017 Episodic Unclassified (2 sources) Onset: 06-16-2023 Resolved: 2024 06-16-2023 Unclassified (1 source) Long-term current use of drug therapy 08-15-2024 Results Test Name Value Interpretation Reference Range Facility CBC W Auto Differential pane l (Bld)on 12-12-2024 Basophils (Bld) [#/Vol] [facility] Basophils/100 WBC (Bld) 0.4 % [facility] Differential cell count method Nom (Bld) Auto [facility] Eosinophils (Bld) [#/Vol] 0.23 10*3/uL [facility] Eosinophils/100 WBC (Bld) 4.6 % [facility] Erythrocyte distribution width (RBC) [Ratio] 17.7 % High 11.5 - 15.0 % [facility] Hematocrit (Bld) [Volume fraction] 33.4 % Low 36.0 - 46.0 % [facility] Hemoglobin (Bld) [Mass/Vol] 11.6 g/dL 11.5 - 15.5 g/dL [facility] Immature granulocytes (Bld) [#/Vol] [facility] Immature granulocytes/100 WBC (Bld) 0 % [facility] Interpretation and review of laboratory results Abnormal [facility] Lymphocytes (Bld) [#/Vol] 1.03 10*3/uL [facility] Lymphocytes/100 WBC (Bld) 20.6 % [facility] MCH (RBC) [Entitic mass] 37.9 pg High 26.0 - 34.0 pg [facility] MCHC (RBC) [Mass/Vol] 34.7 g/dL 30.5 - 36.0 g/dL [facility] MCV (RBC) [Entitic vol] 109.2 fL High 80.0 - 100.0 fL [facility] Monocytes (Bld) [#/Vol] 0.62 10*3/uL NINF [facility] Monocytes/100 WBC (Bld) 12.4 % [facility] Neutrophils (Bld) [#/Vol] 3.11 10*3/uL [facility] Neutrophils/100 WBC (Bld) 62 % [facility] Nucleated RBC (Bld) [#/Vol] NINF [facility] Nucleated RBC/100 WBC (Bld) [Ratio] 0 % /100 WBC [facility] Platelet mean volume (Bld) [Entitic vol] 9.5 fL 9.0 - 12.7 fL [facility] Platelets (Bld) [#/Vol] 146 10*3/uL Low [facility] RBC (Bld) [#/Vol] 3.06 10*6/uL Low 3.90 - 5.2 0 m/uL [facility] WBC (Bld) [#/Vol] 5.01 10*3/uL [facility] Comprehensive metabolic 2000 panelOrdered By: Sasha Velasco on 12-12-2024 Albumin [Mass/Vol] 3.9 g/dL 3.9 - 4.9 g/dL [facility] ALP [Catalytic activity/Vol] 111 U/L 34 - 123 U/L [facility] ALT [Catalytic activity/Vol] 13 U/L 7 - 38 U/L [facility] Anion gap [Moles/Vol] 10 mmol/L 8 - 15 mmol/L [facility] AST [Catalytic activity/Vol] 26 U/L 13 - 35 U/L [facility] Bilirubin [Mass/Vol] 0.4 mg/dL 0.2 - 1 .3 mg/dL [facility] Calcium [Mass/Vol] 9.2 mg/dL 8.5 - 10. 2 mg/dL [facility] Chloride [Moles/Vol] 106 mmol/L 98 - 10 7 mmol/L [facility] CO2 [Moles/Vol] 25 mmol/L 22 - 30 mmol/L [facility] Creatinine [Mass/Vol] 1.4 mg/dL High 0.58 - 0.96 mg/dL [facility] GFR/1.73 sq M.predicted among non-blacks MDRD (S/P/Bld) [Vol rate/Area] 40 mL/min/{1.73_m2} Low - PINF [facility] Comment on above: Estimated Glomerular Filtration Rate (eGFR) is calculated using the 2020 CKD-EPI creatinine equation. This equation utilizes serum creatinine, sex, and age as parameters. The creatinine assay has traceable calibration to isotope dilution-mass spectrometry. Refer to KDIGO guidelines for clinical interpretation. In patients with unstable renal function, e.g. those with acute kidney injury, the eGFR may not accurately reflect actual GFR. Glucose [Mass/Vol] 138 mg/dL High 74 - 99 mg/dL [facility] Comment on above: The [place] [employer] (ADA) provides guidance for cutoff values for fasting glucose and random glucose. The ADA defines fasting as no caloric intake for at least 8 hours. Fasting plasma glucose results between 100 to 125 mg/dL indicate increased risk for diabetes (prediabetes). Fasting plasma glucose results greater than or equal to 126 mg/dL meet the criteria for diagnosis of diabetes. In the absence of unequivocal hyperglycemia, results should be confirmed by repeat testing. In a patient with classic symptoms of hyperglycemia or hyperglycemic crisis, random plasma glucose results greater than or equal to 200 mg/dL meet the criteria for diagnosis of diabetes. Reference: Standards of Medical Care in Diabetes 2016, [place] [employer]. Diabetes Care. 2016.39(Suppl 1). Interpretation and review of laboratory results Abnormal [facility] Potassium [Moles/Vol] 3.5 mmol/L Low 3.7 - 5.1 mmol/L [facility] Protein [Mass/Vol] 5.9 g/dL Low 6.3 - 8.0 g/dL [facility] Sodium [Moles/Vol] 141 mmol/L 136 - 144 mmol/L [facility] Urea nitrogen [Mass/Vol] 14 mg/dL 7 - 21 mg/dL [facility] CBC W Auto Differential pane l (Bld)on 11-21-2024 Basophils (Bld) [#/Vol] NINF [facility] Basophils/100 WBC (Bld) 0.4 % [facility] Differential cell count method Nom (Bld) Auto [facility] Eosinophils (Bld) [#/Vol] 0.25 10*3/uL [facility] Eosinophils/100 WBC (Bld) 5.4 % [facility] Erythrocyte distribution width (RBC) [Ratio] 18.4 % High 11.5 - 15.0 % [facility] Hematocrit (Bld) [Volume fraction] 35.4 % Low 36.0 - 46.0 % [facility] Hemoglobin (Bld) [Mass/Vol] 11.9 g/dL 11.5 - 15.5 g/dL [facility] Immature granulocytes (Bld) [#/Vol] NINF [facility] Immature granulocytes/100 WBC (Bld) 0.4 % [facility] Interpretation and review of laboratory results Abnormal [facility] Lymphocytes (Bld) [#/Vol] 1.08 10*3/uL [facility] Lymphocytes/100 WBC (Bld) 23.2 % [facility] MCH (RBC) [Entitic mass] 37.1 pg High 26.0 - 34.0 pg [facility] MCHC (RBC) [Mass/Vol] 33.6 g/dL 30.5 - 36.0 g/dL [facility] MCV (RBC) [Entitic vol] 110.3 fL High 80.0 - 100.0 fL [facility] Monocytes (Bld) [#/Vol] 0.55 10*3/[facility]L [facility] Monocytes/100 WBC (Bld) 11.8 % [facility] Neutrophils (Bld) [#/Vol] 2.73 10*3/uL [facility] Neutrophils/100 WBC (Bld) 58.8 % [facility] Nucleated RBC (Bld) [#/Vol] NINF [facility] Nucleated RBC/100 WBC (Bld) [Ratio] 0 % /100 WBC [facility] Platelet mean volume (Bld) [Entitic vol] 9.6 fL 9.0 - 12.7 fL [facility] Platelets (Bld) [#/Vol] 174 10*3/uL [facility] RBC (Bld) [#/Vol] 3.21 10*6/uL Low 3.90 - 5.2 0 m/uL [facility] WBC (Bld) [#/Vol] 4.65 10*3/uL [facility] Comprehensive metabolic 2000 panelOrdered By: Sasah Velasco on 11-21-2024 Albumin [Mass/Vol] 4 g/dL 3.9 - 4.9 g/dL [facility] ALP [Catalytic activity/Vol] 105 U/L 34 - 123 U/L [facility] ALT [Catalytic activity/Vol] 14 U/L 7 - 38 U/L [facility] Anion gap [Moles/Vol] 11 mmol/L 8 - 15 mmol/L [facility] AST [Catalytic activity/Vol] 26 U/L 13 - 35 U/L [facility] Bilirubin [Mass/Vol] 0.4 mg/dL 0.2 - 1 .3 mg/dL [facility] Calcium [Mass/Vol] 9.8 mg/dL 8.5 - 10. 2 mg/dL [facility] Chloride [Moles/Vol] 103 mmol/L 98 - 10 7 mmol/L [facility] CO2 [Moles/Vol] 26 mmol/L 22 - 30 mmol/L [facility] Creatinine [Mass/Vol] 1.11 mg/dL High 0.58 - 0.96 mg/dL [facility] GFR/1.73 sq M.predicted among non-blacks MDRD (S/P/Bld) [Vol rate/Area] 53 mL/min/{1.73_m2} Low - PINF [facility] Comment on above: Estimated Glomerular Filtration Rate (eGFR) is calculated using the 2020 CKD-EPI creatinine equation. This equation utilizes serum creatinine, sex, and age as parameters. The creatinine assay has traceable calibration to isotope dilution-mass spectrometry. Refer to KDIGO guidelines for clinical interpretation. In patients with unstable renal function, e.g. those with acute kidney injury, the eGFR may not accurately reflect actual GFR. Glucose [Mass/Vol] 118 mg/dL High 74 - 99 mg/dL [facility] Comment on above: The [place] [employer] (ADA) provides guidance for cutoff values for fasting glucose and random glucose. The ADA defines fasting as no caloric intake for at least 8 hours. Fasting plasma glucose results between 100 to 125 mg/dL indicate increased risk for diabetes (prediabetes). Fasting plasma glucose results greater than or equal to 126 mg/dL meet the criteria for diagnosis of diabetes. In the absence of unequivocal hyperglycemia, results should be confirmed by repeat testing. In a patient with classic symptoms of hyperglycemia or hyperglycemic crisis, random plasma glucose results greater than or equal to 200 mg/dL meet the criteria for diagnosis of diabetes. Reference: Standards of Medical Care in Diabetes 2016, [place] [employer]. Diabetes Care. 2016.39(Suppl 1). Interpretation and review of laboratory results Abnormal [facility] Potassium [Moles/Vol] 4 mmol/L 3.7 - 5.1 mmol/L [facility] Protein [Mass/Vol] 5.9 g/dL Low 6.3 - 8.0 g/dL [facility] Sodium [Moles/Vol] 140 mmol/L 136 - 144 mmol/L [facility] Urea nitrogen [Mass/Vol] 13 mg/dL 7 - 21 mg/dL [facility] CBC W Auto Differential pane l (Bld)on 10-31-2024 Basophils (Bld) [#/Vol] [facility] Basophils/100 WBC (Bld) 0.3 % [facility] Differential cell count method Nom (Bld) Auto [facility] Eosinophils (Bld) [#/Vol] 0.18 10*3/uL [facility] Eosinophils/100 WBC (Bld) 4.8 % [facility] Erythrocyte distribution width (RBC) [Ratio] 17.8 % High 11.5 - 15.0 % [facility] Hematocrit (Bld) [Volume fraction] 35.3 % Low 36.0 - 46.0 % [facility] Hemoglobin (Bld) [Mass/Vol] 12.1 g/dL 11.5 - 15.5 g/dL [facility] Immature granulocytes (Bld) [#/Vol] [facility] Immature granulocytes/100 WBC (Bld) 0.3 % [facility] Interpretation and review of laboratory results Abnormal [facility] Lymphocytes (Bld) [#/Vol] 0.86 10*3/uL Low [facility] Lymphocytes/100 WBC (Bld) 23 % [facility] MCH (RBC) [Entitic mass] 37 pg High 26.0 - 34.0 pg [facility] MCHC (RBC) [Mass/Vol] 34.3 g/dL 30.5 - 36.0 g/dL [facility] MCV (RBC) [Entitic vol] 108 fL High 80.0 - 100.0 fL [facility] Monocytes (Bld) [#/Vol] 0.4 10*3/uL [facility] Monocytes/100 WBC (Bld) 10.7 % [facility] Neutrophils (Bld) [#/Vol] 2.28 10*3/uL [facility] Neutrophils/100 WBC (Bld) 60.9 % [facility] Nucleated RBC (Bld) [#/Vol] [facility] Nucleated RBC/100 WBC (Bld) [Ratio] 0 % /100 WBC [facility] Platelet mean volume (Bld) [Entitic vol] 9.7 fL 9.0 - 12.7 fL [facility] Platelets (Bld) [#/Vol] 139 10*3/uL Low [facility] RBC (Bld) [#/Vol] 3.27 10*6/uL Low 3.90 - 5.2 0 m/uL [facility] WBC (Bld) [#/Vol] 3.74 10*3/uL [facility] Comprehensive metabolic 2000 panelOrdered By: Sasha Velasco on 10-31-2024 Albumin [Mass/Vol] 3.8 g/dL Low 3.9 - 4.9 g/dL [facility] ALP [Catalytic activity/Vol] 99 U/L 34 - 123 U/L [facility] ALT [Catalytic activity/Vol] 13 U/L 7 - 38 U/L [facility] Anion gap [Moles/Vol] 11 mmol/L 8 - 15 mmol/L [facility] AST [Catalytic activity/Vol] 27 U/L 13 - 35 U/L [facility] Bilirubin [Mass/Vol] 0.5 mg/dL 0.2 - 1 .3 mg/dL [facility] Calcium [Mass/Vol] 9.2 mg/dL 8.5 - 10. 2 mg/dL [facility] Chloride [Moles/Vol] 109 mmol/L High 98 - 10 7 mmol/L [facility] CO2 [Moles/Vol] 23 mmol/L 22 - 30 mmol/L [facility] Creatinine [Mass/Vol] 1.11 mg/dL High 0.58 - 0.96 mg/dL [facility] GFR/1.73 sq M.predicted among non-blacks MDRD (S/P/Bld) [Vol rate/Area] 53 mL/min/{1.73_m2} Low - PINF [facility] Comment on above: Estimated Glomerular Filtration Rate (eGFR) is calculated using the 2020 CKD-EPI creatinine equation. This equation utilizes serum creatinine, sex, and age as parameters. The creatinine assay has traceable calibration to isotope dilution-mass spectrometry. Refer to KDIGO guidelines for clinical interpretation. In patients with unstable renal function, e.g. those with acute kidney injury, the eGFR may not accurately reflect actual GFR. Glucose [Mass/Vol] 136 mg/dL High 74 - 99 mg/dL [facility] Comment on above: The [place] [employer] (ADA) provides guidance for cutoff values for fasting glucose and random glucose. The ADA defines fasting as no caloric intake for at least 8 hours. Fasting plasma glucose results between 100 to 125 mg/dL indicate increased risk for diabetes (prediabetes). Fasting plasma glucose results greater than or equal to 126 mg/dL meet the criteria for diagnosis of diabetes. In the absence of unequivocal hyperglycemia, results should be confirmed by repeat testing. In a patient with classic symptoms of hyperglycemia or hyperglycemic crisis, random plasma glucose results greater than or equal to 200 mg/dL meet the criteria for diagnosis of diabetes. Reference: Standards of Medical Care in Diabetes 2016, [place] [employer]. Diabetes Care. 2016.39(Suppl 1). Interpretation and review of laboratory results Abnormal [facility] Potassium [Moles/Vol] 3 mmol/L Low 3.7 - 5.1 mmol/L [facility] Protein [Mass/Vol] 5.9 g/dL Low 6.3 - 8.0 g/dL [facility] Sodium [Moles/Vol] 143 mmol/L 136 - 144 mmol/L [facility] Urea nitrogen [Mass/Vol] 10 mg/dL 7 - 21 mg/dL [facility] CBC W Auto Differential pane l (Bld)on 10-10-2024 Basophils (Bld) [#/Vol] [facility] Basophils/100 WBC (Bld) 0.4 % [facility] Differential cell count method Nom (Bld) Auto [facility] Eosinophils (Bld) [#/Vol] 0.18 10*3/uL [facility] Eosinophils/100 WBC (Bld) 3.5 % [facility] Erythrocyte distribution width (RBC) [Ratio] 17.2 % High 11.5 - 15.0 % [facility] Hematocrit (Bld) [Volume fraction] 34.3 % Low 36.0 - 46.0 % [facility] Hemoglobin (Bld) [Mass/Vol] 11.4 g/dL Low 11.5 - 15.5 g/dL [facility] Immature granulocytes (Bld) [#/Vol] [facility] Immature granulocytes/100 WBC (Bld) 0.4 % [facility] Interpretation and review of laboratory results Abnormal [facility] Lymphocytes (Bld) [#/Vol] 1.02 10*3/uL [facility] Lymphocytes/100 WBC (Bld) 20 % [facility] MCH (RBC) [Entitic mass] 36.4 pg High 26.0 - 34.0 pg [facility] MCHC (RBC) [Mass/Vol] 33.2 g/dL 30.5 - 36.0 g/dL [facility] MCV (RBC) [Entitic vol] 109.6 fL High 80.0 - 100.0 fL [facility] Monocytes (Bld) [#/Vol] 0.5 10*3/uL NINF [facility] Monocytes/100 WBC (Bld) 9.8 % [facility] Neutrophils (Bld) [#/Vol] 3.37 10*3/uL [facility] Neutrophils/100 WBC (Bld) 65.9 % [facility] Nucleated RBC (Bld) [#/Vol] NINF [facility] Nucleated RBC/100 WBC (Bld) [Ratio] 0 % /100 WBC [facility] Platelet mean volume (Bld) [Entitic vol] 9.8 fL 9.0 - 12.7 fL [facility] Platelets (Bld) [#/Vol] 143 10*3/uL Low [facility] RBC (Bld) [#/Vol] 3.13 10*6/uL Low 3.90 - 5.2 0 m/uL [facility] WBC (Bld) [#/Vol] 5.11 10*3/uL [facility] Comprehensive metabolic 2000 panelOrdered By: Alicia Fajardo on 10-10-2024 Albumin [Mass/Vol] 3.5 g/dL Low 3.9 - 4.9 g/dL [facility] ALP [Catalytic activity/Vol] 106 U/L 34 - 123 U/L [facility] ALT [Catalytic activity/Vol] 15 U/L 7 - 38 U/L [facility] Anion gap [Moles/Vol] 7 mmol/L Low 8 - 15 mmol/L [facility] AST [Catalytic activity/Vol] 29 U/L 13 - 35 U/L [facility] Bilirubin [Mass/Vol] 0.6 mg/dL 0.2 - 1 .3 mg/dL [facility] Calcium [Mass/Vol] 9.8 mg/dL 8.5 - 10. 2 mg/dL [facility] Chloride [Moles/Vol] 103 mmol/L 98 - 10 7 mmol/L [facility] CO2 [Moles/Vol] 32 mmol/L High 22 - 30 mmol/L [facility] Creatinine [Mass/Vol] 0.89 mg/dL 0.58 - 0.96 mg/dL [facility] GFR/1.73 sq M.predicted among non-blacks MDRD (S/P/Bld) [Vol rate/Area] 69 mL/min/{1.73_m2} - PINF [facility] Comment on above: Estimated Glomerular Filtration Rate (eGFR) is calculated using the 2020 CKD-EPI creatinine equation. This equation utilizes serum creatinine, sex, and age as parameters. The creatinine assay has traceable calibration to isotope dilution-mass spectrometry. Refer to KDIGO guidelines for clinical interpretation. In patients with unstable renal function, e.g. those with acute kidney injury, the eGFR may not accurately reflect actual GFR. Glucose [Mass/Vol] 105 mg/dL High 74 - 99 mg/dL [facility] Comment on above: The [place] [employer] (ADA) provides guidance for cutoff values for fasting glucose and random glucose. The ADA defines fasting as no caloric intake for at least 8 hours. Fasting plasma glucose results between 100 to 125 mg/dL indicate increased risk for diabetes (prediabetes). Fasting plasma glucose results greater than or equal to 126 mg/dL meet the criteria for diagnosis of diabetes. In the absence of unequivocal hyperglycemia, results should be confirmed by repeat testing. In a patient with classic symptoms of hyperglycemia or hyperglycemic crisis, random plasma glucose results greater than or equal to 200 mg/dL meet the criteria for diagnosis of diabetes. Reference: Standards of Medical Care in Diabetes 2016, [place] [employer]. Diabetes Care. 2016.39(Suppl 1). Interpretation and review of laboratory results Abnormal [facility] Potassium [Moles/Vol] 4 mmol/L 3.7 - 5.1 mmol/L [facility] Protein [Mass/Vol] 5.9 g/dL Low 6.3 - 8.0 g/dL [facility] Sodium [Moles/Vol] 142 mmol/L 136 - 144 mmol/L [facility] Urea nitrogen [Mass/Vol] 8 mg/dL 7 - 21 mg/dL [facility] CBC W Auto Differential pane l (Bld)on 10-03-2024 Basophils (Bld) [#/Vol] NINF [facility] Basophils/100 WBC (Bld) 0.4 % [facility] Differential cell count method Nom (Bld) Auto [facility] Eosinophils (Bld) [#/Vol] 0.16 10*3/uL [facility] Eosinophils/100 WBC (Bld) 3.4 % [facility] Erythrocyte distribution width (RBC) [Ratio] 17.2 % High 11.5 - 15.0 % [facility] Hematocrit (Bld) [Volume fraction] 33 % Low 36.0 - 46.0 % [facility] Hemoglobin (Bld) [Mass/Vol] 11.1 g/dL Low 11.5 - 15.5 g/dL [facility] Immature granulocytes (Bld) [#/Vol] [facility] Immature granulocytes/100 WBC (Bld) 0.4 % [facility] Interpretation and review of laboratory results Abnormal [facility] Lymphocytes (Bld) [#/Vol] 0.82 10*3/uL Low [facility] Lymphocytes/100 WBC (Bld) 17.4 % [facility] MCH (RBC) [Entitic mass] 36.2 pg High 26.0 - 34.0 pg [facility] MCHC (RBC) [Mass/Vol] 33.6 g/dL 30.5 - 36.0 g/dL [facility] MCV (RBC) [Entitic vol] 107.5 fL High 80.0 - 100.0 fL [facility] Monocytes (Bld) [#/Vol] 0.53 10*3/uL [facility] Monocytes/100 WBC (Bld) 11.3 % [facility] Neutrophils (Bld) [#/Vol] 3.16 10*3/uL [facility] Neutrophils/100 WBC (Bld) 67.1 % [facility] Nucleated RBC (Bld) [#/Vol] [facility] Nucleated RBC/100 WBC (Bld) [Ratio] 0 % /100 WBC [facility] Platelet mean volume (Bld) [Entitic vol] 9.6 fL 9.0 - 12.7 fL [facility] Platelets (Bld) [#/Vol] 173 10*3/uL [facility] RBC (Bld) [#/Vol] 3.07 10*6/uL Low 3.90 - 5.2 0 m/uL [facility] WBC (Bld) [#/Vol] 4.71 10*3/uL [facility] Comprehensive metabolic 2000 panelOrdered By: Alicia Fajardo on 10-03-2024 Albumin [Mass/Vol] 3.5 g/dL Low 3.9 - 4.9 g/dL [facility] ALP [Catalytic activity/Vol] 95 U/L 34 - 123 U/L [facility] ALT [Catalytic activity/Vol] 25 U/L 7 - 38 U/L [facility] Anion gap [Moles/Vol] 10 mmol/L 8 - 15 mmol/L [facility] AST [Catalytic activity/Vol] 49 U/L High 13 - 35 U/L [facility] Bilirubin [Mass/Vol] 0.6 mg/dL 0.2 - 1 .3 mg/dL [facility] Calcium [Mass/Vol] 9.5 mg/dL 8.5 - 10. 2 mg/dL [facility] Chloride [Moles/Vol] 106 mmol/L 98 - 10 7 mmol/L [facility] CO2 [Moles/Vol] 28 mmol/L 22 - 30 mmol/L [facility] Creatinine [Mass/Vol] 1.33 mg/dL High 0.58 - 0.96 mg/dL [facility] GFR/1.73 sq M.predicted among non-blacks MDRD (S/P/Bld) [Vol rate/Area] 43 mL/min/{1.73_m2} Low - PINF [facility] Comment on above: Estimated Glomerular Filtration Rate (eGFR) is calculated using the 2020 CKD-EPI creatinine equation. This equation utilizes serum creatinine, sex, and age as parameters. The creatinine assay has traceable calibration to isotope dilution-mass spectrometry. Refer to KDIGO guidelines for clinical interpretation. In patients with unstable renal function, e.g. those with acute kidney injury, the eGFR may not accurately reflect actual GFR. Glucose [Mass/Vol] 112 mg/dL High 74 - 99 mg/dL [facility] Comment on above: The [place] [employer] (ADA) provides guidance for cutoff values for fasting glucose and random glucose. The ADA defines fasting as no caloric intake for at least 8 hours. Fasting plasma glucose results between 100 to 125 mg/dL indicate increased risk for diabetes (prediabetes). Fasting plasma glucose results greater than or equal to 126 mg/dL meet the criteria for diagnosis of diabetes. In the absence of unequivocal hyperglycemia, results should be confirmed by repeat testing. In a patient with classic symptoms of hyperglycemia or hyperglycemic crisis, random plasma glucose results greater than or equal to 200 mg/dL meet the criteria for diagnosis of diabetes. Reference: Standards of Medical Care in Diabetes 2016, [place] [employer]. Diabetes Care. 2016.39(Suppl 1). Interpretation and review of laboratory results Abnormal [facility] Potassium [Moles/Vol] 3.5 mmol/L Low 3.7 - 5.1 mmol/L [facility] Protein [Mass/Vol] 5.6 g/dL Low 6.3 - 8.0 g/dL [facility] Sodium [Moles/Vol] 144 mmol/L 136 - 144 mmol/L [facility] Urea nitrogen [Mass/Vol] 18 mg/dL 7 - 21 mg/dL [facility] Echo Completeon 09-13-2024 Echo Complete [facility] [address] [place] [address] Echo Complete 09/13/24 1406 MR#: [id number] Acct: [id number] Name: RENATE CHRISTIANSEN Rep #: [id number] : 1955 68 From: Mayco Galeano MD Attending Dr: Dr. Rip Rivers, DO Status: REG CL I Ordering Dr: Rip Rivers DO Date: 09/13/24 Location: [facility] Sex: F C Admitted: Reason For Study Reason For Study: CARDIOTOXIC DRUG Procedure This was a 2D Doppler, Color Flow transthoracic echocardiogram. Myocardial strain analysis was performed in this exam to aid in the assessment of cardiac function. Exam performed in department. Left Ventricle Normal LV size. The left ventricular ejection fraction is 55 %. Stage 1 diastolic dysfunction. No regional wall motion abnormalities noted. Right Ventricle Normal RV size. Normal systolic function. Atria Normal left atrium. Normal right atrium. Mitral Valve Normal mitral valve. Tricuspid Valve Normal tricuspid valve. Aortic Valve Trisinus/trileaflet aortic valve. Pulmonic Valve Normal pulmonic valve. Trivial pulmonic valve insufficiency. MMode/2D Measurements Calculations LVIDd: 3.9 cm IVSd: 0.91 cm LVOT diam: 2.0 cm LVIDs: 2.7 cm LVPWd: 0.92 cm LVOT area: 3.2 cm2 RVDd: 3.2 cm FS: 30.1 % Ao root diam: 3.1 cm LAV(MOD-bp): 34.3 ml LVAd ap4: 30.1 cm2 LAV(MOD-bp) Indexed: 19.3 ml/m2 LVLd ap4: 8.6 cm LAV(MOD-sp2): 52.7 ml EDV(MOD-sp4): 87.7 ml LAV(MOD-sp4): 19.8 ml EDV(sp4-el): 89.4 ml LVAs ap4: 18.6 cm2 LVLs ap4: 7.1 cm ESV(MOD-sp4): 42.8 ml ESV(sp4-el): 41.4 ml EF(MOD-sp4): 51.1 % EF(sp4-el): 53.7 % SV(MOD-sp4): 44.8 ml SV(sp4-el): 48.1 ml LA A4 area: 10.2 cm2 SI(MOD-sp4): 25.2 ml/m2 LA dimension(2D): 3.6 cm RA A4 area: 12.4 cm2 Time Measurements MV dec time: 0.25 sec Doppler Measurements Calculations MV E max johnathan: 72.6 cm/sec Lat Peak E' Johnathan: 8.6 cm/sec Med Peak E' Johnathan: 5.3 cm/sec MV A max johnathan: 84.2 cm/sec E/E' lat: 8.4 E/E' med: 13.8 MV E/A: 0.86 MV V2 max: 86.7 cm/sec Ao V2 max: 114.8 cm/sec MV max P.0 mmHg MV dec slope: 285.4 cm/sec2 Ao max P.3 mmHg MV V2 mean: 53.8 cm/sec Ao V2 mean: 81.9 cm/sec MV mean P.3 mmHg Ao mean P.0 mmHg MV V2 VTI: 34.1 cm Ao V2 VTI: 28.3 cm AV (velocity ratio): 0.71 MVA(VTI): 1.9 cm2 PARVIN(I,D): 2.3 cm2 PARVIN(V,D): 2.4 cm2 LV V1 max: 85.5 cm/sec SV(LVOT): 64.1 ml PA V2 max: 89.4 cm/sec LV V1 max P.9 mmHg PA V2 mean: 59.8 cm/sec LV V1 mean P.7 mmHg LV V1 mean: 61.9 cm/sec LV V1 VTI: 20.0 cm ECHO/Echo Complete Interpretation Summary Normal LV size. The left ventricular ejection fraction is 55 %. Stage 1 diastolic dysfunction. The global longitudinal strain = -16% (abnormal). Ordering Physician: Rip Rivers Referring Physician: Rip Rivers Performed By: Amber Lou RCS 09/13/24 1613 Date Mayco Galeano MD CC: Dr. Isac Billingsley MD; Dr. Rip Rivers DO Date Dictated: 09/13/241405 Date Transcribed: 09/13/241612 Black Off Worker: Signed Normal [facility] Echocardiogram study reportO rdered By: Mayco Galeano on 09-13-2024 Study report [facility] [address] [place] [address] Echo Complete 09/13/241405 MR#: [id number] Acct: [id number] Name: RENATE CHRISTIANSEN Rep #:[id number] : 1955 68 From: Mayco Hernandez Attending Dr: Dr. Rip Rivers DO atus: REG CLI Ordering Dr: Rip Rivers DO Date: 09/04 Location: [facility] Sex: F C Admitted: Reason For Study Reason For Study: CARDIOTOXIC DRUG Procedure This was a 2D Doppler, Color Flow transthoracic echocardiogram. Myocardial strain analysis was performed in this exam to aid in the assessment of cardiac function. Exam performed in department. Left Ventricle Normal LV size. The left ventricular ejection fraction is 55 %. Stage 1 diastolic dysfunction. No regional wall motion abnormalities noted. Right Ventricle Normal RV size. Normal systolic function. Atria Normal left atrium. Normal right atrium. Mitral Valve Normal mitral valve. Tricuspid Valve Normal tricuspid valve. Aortic Valve Trisinus/trileaflet aortic valve. Pulmonic Valve Normal pulmonic valve. Trivial pulmonic valve insufficiency. MMode/2D Measurements & Calculations LVIDd: 3.9 cm IVSd: 0.91 cm LVOT diam: 2.0 cm LVIDs: 2.7 cm LVPWd: 0.92 cm LVOT area: 3.2 cm2 RVDd: 3.2 cm FS: 30.1 % Ao root diam: 3.1 cm LAV(MOD-bp): 34.3 ml LVAd ap4: 30.1 cm2 LAV(MOD-bp) Indexed: 19.3 ml/m2 LVLd ap4: 8.6 cm LAV(MOD-sp2): 52.7 ml EDV(MOD-sp4): 87.7 ml LAV(MOD-sp4): 19.8 ml EDV(sp4-el): 89.4 ml LVAs ap4: 18.6 cm2 LVLs ap4: 7.1 cm ESV(MOD-sp4): 42.8 ml ESV(sp4-el): 41.4 ml EF(MOD-sp4): 51.1 % EF(sp4-el): 53.7 % SV(MOD-sp4): 44.8 ml SV(sp4-el): 48.1 ml LA A4 area: 10.2 cm2 SI(MOD-sp4): 25.2 ml/m2 LA dimension(2D): 3.6 cm RA A4 area: 12.4 cm2 Time Measurements MV dec time: 0.25 sec Doppler Measurements & Calculations MV E max johnathan: 72.6 cm/sec Lat Peak E' Johnathan: 8.6 cm/sec Med Peak E' Johnathan: 5.3 cm/sec MV A max johnathan: 84.2 cm/sec E/E' lat: 8.4 E/E' med: 13.8 MV E/A: 0.86 MV V2 max: 86.7 cm/sec Ao V2 max: 114.8 cm/sec MV max P.0 mmHg MV dec slope: 285.4 cm/sec2 Ao max P.3 mmHg MV V2 mean: 53.8 cm/sec Ao V2 mean: 81.9 cm/sec MV mean P.3 mmHg Ao mean P.0 mmHg MV V2 VTI: 34.1 cm Ao V2 VTI: 28.3 cm AV (velocity ratio): 0.71 MVA(VTI): 1.9 cm2 PARVIN(I,D): 2.3 cm2 PARVIN(V,D): 2.4 cm2 LV V1 max: 85.5 cm/sec SV(LVOT): 64.1 ml PA V2 max: 89.4 cm/sec LV V1 max P.9 mmHg PA V2 mean: 59.8 cm/sec LV V1 mean P.7 mmHg LV V1 mean: 61.9 cm/sec LV V1 VTI: 20.0 cm ECHO/Echo Complete Interpretation Summary Normal LV size. The left ventricular ejection fraction is 55 %. Stage 1 diastolic dysfunction. The global longitudinal strain = -16% (abnormal). Ordering Physician: Rip Rivers Referring Physician: Rip Rivers Performed By: Amber Lou RCS 09/13/241612 Date _ Mayco Galeano MD CC: Dr. Isac Billingsley MD; Dr. Rip Rivers DO ~ Date Dictated: 09/13/241405 Date Transcribed: 09/13/241612 Black Off Worker: Signed [facility] Work Phone: CBC W Auto Differential pane l (Bld)on 09-05-2024 Basophils (Bld) [#/Vol] [facility] Basophils/100 WBC (Bld) 0.3 % [facility] Differential cell count method Nom (Bld) Auto [facility] Eosinophils (Bld) [#/Vol] 0.12 10*3/uL [facility] Eosinophils/100 WBC (Bld) 3.5 % [facility] Erythrocyte distribution width (RBC) [Ratio] 16.2 % High 11.5 - 15.0 % [facility] Hematocrit (Bld) [Volume fraction] 36.9 % 36.0 - 46.0 % [facility] Hemoglobin (Bld) [Mass/Vol] 12.8 g/dL 11.5 - 15.5 g/dL [facility] Immature granulocytes (Bld) [#/Vol] [facility] Immature granulocytes/100 WBC (Bld) 0.3 % [facility] Interpretation and review of laboratory results Abnormal [facility] Lymphocytes (Bld) [#/Vol] 0.78 10*3/uL Low [facility] Lymphocytes/100 WBC (Bld) 22.5 % [facility] MCH (RBC) [Entitic mass] 37 pg High 26.0 - 34.0 pg [facility] MCHC (RBC) [Mass/Vol] 34.7 g/dL 30.5 - 36.0 g/dL [facility] MCV (RBC) [Entitic vol] 106.6 fL High 80.0 - 100.0 fL [facility] Monocytes (Bld) [#/Vol] 0.43 10*3/uL [facility] Monocytes/100 WBC (Bld) 12.4 % [facility] Neutrophils (Bld) [#/Vol] 2.11 10*3/uL [facility] Neutrophils/100 WBC (Bld) 61 % [facility] Nucleated RBC (Bld) [#/Vol] [facility] Nucleated RBC/100 WBC (Bld) [Ratio] 0 % /100 WBC [facility] Platelet mean volume (Bld) [Entitic vol] 9.4 fL 9.0 - 12.7 fL [facility] Platelets (Bld) [#/Vol] 122 10*3/uL Low [facility] RBC (Bld) [#/Vol] 3.46 10*6/uL Low 3.90 - 5.2 0 m/uL [facility] WBC (Bld) [#/Vol] 3.46 10*3/uL Low [facility] Comprehensive metabolic 2000 panelOrdered By: Sasha Velasco on 09-05-2024 Albumin [Mass/Vol] 4.1 g/dL 3.9 - 4.9 g/dL [facility] ALP [Catalytic activity/Vol] 126 U/L High 34 - 123 U/L [facility] ALT [Catalytic activity/Vol] 16 U/L 7 - 38 U/L [facility] Anion gap [Moles/Vol] 6 mmol/L Low 8 - 15 mmol/L [facility] AST [Catalytic activity/Vol] 32 U/L 13 - 35 U/L [facility] Bilirubin [Mass/Vol] 0.7 mg/dL 0.2 - 1 .3 mg/dL [facility] Calcium [Mass/Vol] 10 mg/dL 8.5 - 10. 2 mg/dL [facility] Chloride [Moles/Vol] 105 mmol/L 98 - 10 7 mmol/L [facility] CO2 [Moles/Vol] 30 mmol/L 22 - 30 mmol/L [facility] Creatinine [Mass/Vol] 1.05 mg/dL High 0.58 - 0.96 mg/dL [facility] GFR/1.73 sq M.predicted among non-blacks MDRD (S/P/Bld) [Vol rate/Area] 57 mL/min/{1.73_m2} Low - PINF [facility] Comment on above: Estimated Glomerular Filtration Rate (eGFR) is calculated using the 2020 CKD-EPI creatinine equation. This equation utilizes serum creatinine, sex, and age as parameters. The creatinine assay has traceable calibration to isotope dilution-mass spectrometry. Refer to KDIGO guidelines for clinical interpretation. In patients with unstable renal function, e.g. those with acute kidney injury, the eGFR may not accurately reflect actual GFR. Glucose [Mass/Vol] 102 mg/dL High 74 - 99 mg/dL [facility] Comment on above: The [place] [employer] (ADA) provides guidance for cutoff values for fasting glucose and random glucose. The ADA defines fasting as no caloric intake for at least 8 hours. Fasting plasma glucose results between 100 to 125 mg/dL indicate increased risk for diabetes (prediabetes). Fasting plasma glucose results greater than or equal to 126 mg/dL meet the criteria for diagnosis of diabetes. In the absence of unequivocal hyperglycemia, results should be confirmed by repeat testing. In a patient with classic symptoms of hyperglycemia or hyperglycemic crisis, random plasma glucose results greater than or equal to 200 mg/dL meet the criteria for diagnosis of diabetes. Reference: Standards of Medical Care in Diabetes 2016, [place] [employer]. Diabetes Care. 2016.39(Suppl 1). Interpretation and review of laboratory results Abnormal [facility] Potassium [Moles/Vol] 3.9 mmol/L 3.7 - 5.1 mmol/L [facility] Protein [Mass/Vol] 6.4 g/dL 6.3 - 8.0 g/dL [facility] Sodium [Moles/Vol] 141 mmol/L 136 - 144 mmol/L [facility] Urea nitrogen [Mass/Vol] 9 mg/dL 7 - 21 mg/dL [facility] CBC W Auto Differential pane l (Bld)on 08-30-2024 Basophils (Bld) [#/Vol] [facility] Basophils/100 WBC (Bld) 0.5 % [facility] Differential cell count method Nom (Bld) Auto [facility] Eosinophils (Bld) [#/Vol] 0.15 10*3/uL [facility] Eosinophils/100 WBC (Bld) 4 % [facility] Erythrocyte distribution width (RBC) [Ratio] 15.4 % High 11.5 - 15.0 % [facility] Hematocrit (Bld) [Volume fraction] 35.4 % Low 36.0 - 46.0 % [facility] Hemoglobin (Bld) [Mass/Vol] 12.1 g/dL 11.5 - 15.5 g/dL [facility] Immature granulocytes (Bld) [#/Vol] [facility] Immature granulocytes/100 WBC (Bld) 0.3 % [facility] Interpretation and review of laboratory results Abnormal [facility] Lymphocytes (Bld) [#/Vol] 1 10*3/uL [facility] Lymphocytes/100 WBC (Bld) 26.5 % [facility] MCH (RBC) [Entitic mass] 36.8 pg High 26.0 - 34.0 pg [facility] MCHC (RBC) [Mass/Vol] 34.2 g/dL 30.5 - 36.0 g/dL [facility] MCV (RBC) [Entitic vol] 107.6 fL High 80.0 - 100.0 fL [facility] Monocytes (Bld) [#/Vol] 0.46 10*3/uL NINF [facility] Monocytes/100 WBC (Bld) 12.2 % [facility] Neutrophils (Bld) [#/Vol] 2.14 10*3/uL [facility] Neutrophils/100 WBC (Bld) 56.5 % [facility] Nucleated RBC (Bld) [#/Vol] NINF [facility] Nucleated RBC/100 WBC (Bld) [Ratio] 0 % /100 WBC [facility] Platelet mean volume (Bld) [Entitic vol] 9.3 fL 9.0 - 12.7 fL [facility] Platelets (Bld) [#/Vol] 136 10*3/uL Low [facility] RBC (Bld) [#/Vol] 3.29 10*6/uL Low 3.90 - 5.2 0 m/uL [facility] WBC (Bld) [#/Vol] 3.78 10*3/uL [facility] Comprehensive metabolic 2000 panelOrdered By: Sasha Velasco on 08-30-2024 Albumin [Mass/Vol] 4 g/dL 3.9 - 4.9 g/dL [facility] ALP [Catalytic activity/Vol] 115 U/L 34 - 123 U/L [facility] ALT [Catalytic activity/Vol] 16 U/L 7 - 38 U/L [facility] Anion gap [Moles/Vol] 5 mmol/L Low 8 - 15 mmol/L [facility] AST [Catalytic activity/Vol] 28 U/L 13 - 35 U/L [facility] Bilirubin [Mass/Vol] 0.5 mg/dL 0.2 - 1 .3 mg/dL [facility] Calcium [Mass/Vol] 9.3 mg/dL 8.5 - 10. 2 mg/dL [facility] Chloride [Moles/Vol] 107 mmol/L 98 - 10 7 mmol/L [facility] CO2 [Moles/Vol] 29 mmol/L 22 - 30 mmol/L [facility] Creatinine [Mass/Vol] 1.36 mg/dL High 0.58 - 0.96 mg/dL [facility] GFR/1.73 sq M.predicted among non-blacks MDRD (S/P/Bld) [Vol rate/Area] 42 mL/min/{1.73_m2} Low - PINF [facility] Comment on above: Estimated Glomerular Filtration Rate (eGFR) is calculated using the 2020 CKD-EPI creatinine equation. This equation utilizes serum creatinine, sex, and age as parameters. The creatinine assay has traceable calibration to isotope dilution-mass spectrometry. Refer to KDIGO guidelines for clinical interpretation. In patients with unstable renal function, e.g. those with acute kidney injury, the eGFR may not accurately reflect actual GFR. Glucose [Mass/Vol] 97 mg/dL 74 - 99 mg/dL [facility] Comment on above: The [place] [employer] (ADA) provides guidance for cutoff values for fasting glucose and random glucose. The ADA defines fasting as no caloric intake for at least 8 hours. Fasting plasma glucose results between 100 to 125 mg/dL indicate increased risk for diabetes (prediabetes). Fasting plasma glucose results greater than or equal to 126 mg/dL meet the criteria for diagnosis of diabetes. In the absence of unequivocal hyperglycemia, results should be confirmed by repeat testing. In a patient with classic symptoms of hyperglycemia or hyperglycemic crisis, random plasma glucose results greater than or equal to 200 mg/dL meet the criteria for diagnosis of diabetes. Reference: Standards of Medical Care in Diabetes 2016, [place] [employer]. Diabetes Care. 2016.39(Suppl 1). Interpretation and review of laboratory results Abnormal [facility] Potassium [Moles/Vol] 3.8 mmol/L 3.7 - 5.1 mmol/L [facility] Protein [Mass/Vol] 6.1 g/dL Low 6.3 - 8.0 g/dL [facility] Sodium [Moles/Vol] 141 mmol/L 136 - 144 mmol/L [facility] Urea nitrogen [Mass/Vol] 18 mg/dL 7 - 21 mg/dL [facility] CBC W Auto Differential pane l (Bld)on 08-15-2024 Basophils (Bld) [#/Vol] NINF [facility] Basophils/100 WBC (Bld) 0.6 % [facility] Differential cell count method Nom (Bld) Auto [facility] Eosinophils (Bld) [#/Vol] 0.18 10*3/uL [facility] Eosinophils/100 WBC (Bld) 5.6 % [facility] Erythrocyte distribution width (RBC) [Ratio] 15 % 11.5 - 15.0 % [facility] Hematocrit (Bld) [Volume fraction] 36.3 % 36.0 - 46.0 % [facility] Hemoglobin (Bld) [Mass/Vol] 12.1 g/dL 11.5 - 15.5 g/dL [facility] Immature granulocytes (Bld) [#/Vol] NINF [facility] Immature granulocytes/100 WBC (Bld) 0.3 % [facility] Interpretation and review of laboratory results Abnormal [facility] Lymphocytes (Bld) [#/Vol] 0.83 10*3/uL Low [facility] Lymphocytes/100 WBC (Bld) 25.7 % [facility] MCH (RBC) [Entitic mass] 36.8 pg High 26.0 - 34.0 pg [facility] MCHC (RBC) [Mass/Vol] 33.3 g/dL 30.5 - 36.0 g/dL [facility] MCV (RBC) [Entitic vol] 110.3 fL High 80.0 - 100.0 fL [facility] Monocytes (Bld) [#/Vol] 0.42 10*3/uL [facility] Monocytes/100 WBC (Bld) 13 % [facility] Neutrophils (Bld) [#/Vol] 1.77 10*3/uL [facility] Neutrophils/100 WBC (Bld) 54.8 % [facility] Nucleated RBC (Bld) [#/Vol] [facility] Nucleated RBC/100 WBC (Bld) [Ratio] 0 % /100 WBC [facility] Platelet mean volume (Bld) [Entitic vol] 9.3 fL 9.0 - 12.7 fL [facility] Platelets (Bld) [#/Vol] 120 10*3/uL Low [facility] RBC (Bld) [#/Vol] 3.29 10*6/uL Low 3.90 - 5.2 0 m/uL [facility] WBC (Bld) [#/Vol] 3.23 10*3/uL Low [facility] Comprehensive metabolic 2000 panelOrdered By: Alicia Fajardo on 08-15-2024 Albumin [Mass/Vol] 3.9 g/dL 3.9 - 4.9 g/dL [facility] ALP [Catalytic activity/Vol] 119 U/L 34 - 123 U/L [facility] ALT [Catalytic activity/Vol] 19 U/L 7 - 38 U/L [facility] Anion gap [Moles/Vol] 7 mmol/L Low 8 - 15 mmol/L [facility] AST [Catalytic activity/Vol] 33 U/L 13 - 35 U/L [facility] Bilirubin [Mass/Vol] 0.7 mg/dL 0.2 - 1 .3 mg/dL [facility] Calcium [Mass/Vol] 9.4 mg/dL 8.5 - 10. 2 mg/dL [facility] Chloride [Moles/Vol] 103 mmol/L 98 - 10 7 mmol/L [facility] CO2 [Moles/Vol] 31 mmol/L High 22 - 30 mmol/L [facility] Creatinine [Mass/Vol] 0.99 mg/dL High 0.58 - 0.96 mg/dL [facility] GFR/1.73 sq M.predicted among non-blacks MDRD (S/P/Bld) [Vol rate/Area] 61 mL/min/{1.73_m2} - PINF [facility] Comment on above: Estimated Glomerular Filtration Rate (eGFR) is calculated using the 2020 CKD-EPI creatinine equation. This equation utilizes serum creatinine, sex, and age as parameters. The creatinine assay has traceable calibration to isotope dilution-mass spectrometry. Refer to KDIGO guidelines for clinical interpretation. In patients with unstable renal function, e.g. those with acute kidney injury, the eGFR may not accurately reflect actual GFR. Glucose [Mass/Vol] 104 mg/dL High 74 - 99 mg/dL [facility] Comment on above: The [place] [employer] (ADA) provides guidance for cutoff values for fasting glucose and random glucose. The ADA defines fasting as no caloric intake for at least 8 hours. Fasting plasma glucose results between 100 to 125 mg/dL indicate increased risk for diabetes (prediabetes). Fasting plasma glucose results greater than or equal to 126 mg/dL meet the criteria for diagnosis of diabetes. In the absence of unequivocal hyperglycemia, results should be confirmed by repeat testing. In a patient with classic symptoms of hyperglycemia or hyperglycemic crisis, random plasma glucose results greater than or equal to 200 mg/dL meet the criteria for diagnosis of diabetes. Reference: Standards of Medical Care in Diabetes 2016, [place] [employer]. Diabetes Care. 2016.39(Suppl 1). Interpretation and review of laboratory results Abnormal [facility] Potassium [Moles/Vol] 3.6 mmol/L Low 3.7 - 5.1 mmol/L [facility] Protein [Mass/Vol] 5.9 g/dL Low 6.3 - 8.0 g/dL [facility] Sodium [Moles/Vol] 141 mmol/L 136 - 144 mmol/L [facility] Urea nitrogen [Mass/Vol] 12 mg/dL 7 - 21 mg/dL [facility] CBC W Auto Differential pane l (Bld)on 07-25-2024 Basophils (Bld) [#/Vol] [facility] Basophils/100 WBC (Bld) 0.5 % [facility] Differential cell count method Nom (Bld) Auto [facility] Eosinophils (Bld) [#/Vol] 0.16 10*3/uL [facility] Eosinophils/100 WBC (Bld) 4.2 % [facility] Erythrocyte distribution width (RBC) [Ratio] 14 % 11.5 - 15.0 % [facility] Hematocrit (Bld) [Volume fraction] 39.3 % 36.0 - 46.0 % [facility] Hemoglobin (Bld) [Mass/Vol] 13.2 g/dL 11.5 - 15.5 g/dL [facility] Immature granulocytes (Bld) [#/Vol] [facility] Immature granulocytes/100 WBC (Bld) 0.3 % [facility] Interpretation and review of laboratory results Abnormal [facility] Lymphocytes (Bld) [#/Vol] 0.79 10*3/uL Low [facility] Lymphocytes/100 WBC (Bld) 20.8 % [facility] MCH (RBC) [Entitic mass] 37.7 pg High 26.0 - 34.0 pg [facility] MCHC (RBC) [Mass/Vol] 33.6 g/dL 30.5 - 36.0 g/dL [facility] MCV (RBC) [Entitic vol] 112.3 fL High 80.0 - 100.0 fL [facility] Monocytes (Bld) [#/Vol] 0.32 10*3/uL [facility] Monocytes/100 WBC (Bld) 8.4 % [facility] Neutrophils (Bld) [#/Vol] 2.49 10*3/uL [facility] Neutrophils/100 WBC (Bld) 65.8 % [facility] Nucleated RBC (Bld) [#/Vol] [facility] Nucleated RBC/100 WBC (Bld) [Ratio] 0 % /100 WBC [facility] Platelet mean volume (Bld) [Entitic vol] 10.2 fL 9.0 - 12.7 fL [facility] Platelets (Bld) [#/Vol] 115 10*3/uL Low [facility] RBC (Bld) [#/Vol] 3.5 10*6/uL Low 3.90 - 5.2 0 m/uL [facility] WBC (Bld) [#/Vol] 3.79 10*3/uL [facility] Comprehensive metabolic 2000 panelOrdered By: Alicia Fajardo on 07-25-2024 Albumin [Mass/Vol] 4.2 g/dL 3.9 - 4.9 g/dL [facility] ALP [Catalytic activity/Vol] 143 U/L High 34 - 123 U/L [facility] ALT [Catalytic activity/Vol] 17 U/L 7 - 38 U/L [facility] Anion gap [Moles/Vol] 11 mmol/L 8 - 15 mmol/L [facility] AST [Catalytic activity/Vol] 31 U/L 13 - 35 U/L [facility] Bilirubin [Mass/Vol] 0.5 mg/dL 0.2 - 1 .3 mg/dL [facility] Calcium [Mass/Vol] 10.2 mg/dL 8.5 - 10. 2 mg/dL [facility] Chloride [Moles/Vol] 104 mmol/L 98 - 10 7 mmol/L [facility] CO2 [Moles/Vol] 27 mmol/L 22 - 30 mmol/L [facility] Creatinine [Mass/Vol] 1.13 mg/dL High 0.58 - 0.96 mg/dL [facility] GFR/1.73 sq M.predicted among non-blacks MDRD (S/P/Bld) [Vol rate/Area] 52 mL/min/{1.73_m2} Low - PINF [facility] Comment on above: Estimated Glomerular Filtration Rate (eGFR) is calculated using the 2020 CKD-EPI creatinine equation. This equation utilizes serum creatinine, sex, and age as parameters. The creatinine assay has traceable calibration to isotope dilution-mass spectrometry. Refer to KDIGO guidelines for clinical interpretation. In patients with unstable renal function, e.g. those with acute kidney injury, the eGFR may not accurately reflect actual GFR. Glucose [Mass/Vol] 131 mg/dL High 74 - 99 mg/dL [facility] Comment on above: The [place] [employer] (ADA) provides guidance for cutoff values for fasting glucose and random glucose. The ADA defines fasting as no caloric intake for at least 8 hours. Fasting plasma glucose results between 100 to 125 mg/dL indicate increased risk for diabetes (prediabetes). Fasting plasma glucose results greater than or equal to 126 mg/dL meet the criteria for diagnosis of diabetes. In the absence of unequivocal hyperglycemia, results should be confirmed by repeat testing. In a patient with classic symptoms of hyperglycemia or hyperglycemic crisis, random plasma glucose results greater than or equal to 200 mg/dL meet the criteria for diagnosis of diabetes. Reference: Standards of Medical Care in Diabetes 2016, [place] [employer]. Diabetes Care. 2016.39(Suppl 1). Interpretation and review of laboratory results Abnormal [facility] Potassium [Moles/Vol] 3.6 mmol/L Low 3.7 - 5.1 mmol/L [facility] Protein [Mass/Vol] 6.6 g/dL 6.3 - 8.0 g/dL [facility] Sodium [Moles/Vol] 142 mmol/L 136 - 144 mmol/L [facility] Urea nitrogen [Mass/Vol] 17 mg/dL 7 - 21 mg/dL [facility] CBC W Auto Differential pane l (Bld)on 07-04-2024 Basophils (Bld) [#/Vol] [facility] Basophils/100 WBC (Bld) 0.3 % [facility] Differential cell count method Nom (Bld) Auto [facility] Eosinophils (Bld) [#/Vol] 0.15 10*3/uL [facility] Eosinophils/100 WBC (Bld) 4.4 % [facility] Erythrocyte distribution width (RBC) [Ratio] 16.7 % High 11.5 - 15.0 % [facility] Hematocrit (Bld) [Volume fraction] 33.9 % Low 36.0 - 46.0 % [facility] Hemoglobin (Bld) [Mass/Vol] 11.5 g/dL 11.5 - 15.5 g/dL [facility] Immature granulocytes (Bld) [#/Vol] [facility] Immature granulocytes/100 WBC (Bld) 0.6 % [facility] Interpretation and review of laboratory results Abnormal [facility] Lymphocytes (Bld) [#/Vol] 0.93 10*3/uL Low [facility] Lymphocytes/100 WBC (Bld) 27.2 % [facility] MCH (RBC) [Entitic mass] 39.0 pg High 26.0 - 34.0 pg [facility] MCHC (RBC) [Mass/Vol] 33.9 g/dL 30.5 - 36.0 g/dL [facility] MCV (RBC) [Entitic vol] 114.9 fL High 80.0 - 100.0 fL [facility] Monocytes (Bld) [#/Vol] 0.42 10*3/uL NINF [facility] Monocytes/100 WBC (Bld) 12.3 % [facility] Neutrophils (Bld) [#/Vol] 1.89 10*3/uL [facility] Neutrophils/100 WBC (Bld) 55.2 % [facility] Nucleated RBC (Bld) [#/Vol] [facility] Nucleated RBC/100 WBC (Bld) [Ratio] 0.0 % /100 WBC [facility] Platelet mean volume (Bld) [Entitic vol] 9.2 fL 9.0 - 12.7 fL [facility] Platelets (Bld) [#/Vol] 101 10*3/uL Low [facility] RBC (Bld) [#/Vol] 2.95 10*6/uL Low 3.90 - 5.2 0 m/uL [facility] WBC (Bld) [#/Vol] 3.42 10*3/uL Low [facility] Comprehensive metabolic 2000 panelOrdered By: Sasha Velasco on 07-04-2024 Albumin [Mass/Vol] 4.0 g/dL 3.9 - 4.9 g/dL [facility] ALP [Catalytic activity/Vol] 108 U/L 34 - 123 U/L [facility] ALT [Catalytic activity/Vol] 22 U/L 7 - 38 U/L [facility] Anion gap [Moles/Vol] 9 mmol/L 8 - 15 mmol/L [facility] AST [Catalytic activity/Vol] 40 U/L High 13 - 35 U/L [facility] Bilirubin [Mass/Vol] 0.6 mg/dL 0.2 - 1 .3 mg/dL [facility] Calcium [Mass/Vol] 9.7 mg/dL 8.5 - 10. 2 mg/dL [facility] Chloride [Moles/Vol] 105 mmol/L 98 - 10 7 mmol/L [facility] CO2 [Moles/Vol] 26 mmol/L 22 - 30 mmol/L [facility] Creatinine [Mass/Vol] 1.25 mg/dL High 0.58 - 0.96 mg/dL [facility] GFR/1.73 sq M.predicted among non-blacks MDRD (S/P/Bld) [Vol rate/Area] 46 mL/min/{1.73_m2} Low - PINF [facility] Comment on above: Estimated Glomerular Filtration Rate (eGFR) is calculated using the 2020 CKD-EPI creatinine equation. This equation utilizes serum creatinine, sex, and age as parameters. The creatinine assay has traceable calibration to isotope dilution-mass spectrometry. Refer to KDIGO guidelines for clinical interpretation. In patients with unstable renal function, e.g. those with acute kidney injury, the eGFR may not accurately reflect actual GFR. Glucose [Mass/Vol] 143 mg/dL High 74 - 99 mg/dL [facility] Comment on above: The [place] [employer] (ADA) provides guidance for cutoff values for fasting glucose and random glucose. The ADA defines fasting as no caloric intake for at least 8 hours. Fasting plasma glucose results between 100 to 125 mg/dL indicate increased risk for diabetes (prediabetes). Fasting plasma glucose results greater than or equal to 126 mg/dL meet the criteria for diagnosis of diabetes. In the absence of unequivocal hyperglycemia, results should be confirmed by repeat testing. In a patient with classic symptoms of hyperglycemia or hyperglycemic crisis, random plasma glucose results greater than or equal to 200 mg/dL meet the criteria for diagnosis of diabetes. Reference: Standards of Medical Care in Diabetes 2016, [place] [employer]. Diabetes Care. 2016.39(Suppl 1). Interpretation and review of laboratory results Abnormal [facility] Potassium [Moles/Vol] 3.8 mmol/L 3.7 - 5.1 mmol/L [facility] Protein [Mass/Vol] 5.8 g/dL Low 6.3 - 8.0 g/dL [facility] Sodium [Moles/Vol] 140 mmol/L 136 - 144 mmol/L [facility] Urea nitrogen [Mass/Vol] 16 mg/dL 7 - 21 mg/dL [facility] CBC W Auto Differential pane l (Bld)on 06-13-2024 Basophils (Bld) [#/Vol] [facility] Basophils/100 WBC (Bld) 0.6 % [facility] Differential cell count method Nom (Bld) Auto [facility] Eosinophils (Bld) [#/Vol] 0.24 10*3/uL [facility] Eosinophils/100 WBC (Bld) 6.9 % [facility] Erythrocyte distribution width (RBC) [Ratio] 17.2 % High 11.5 - 15.0 % [facility] Hematocrit (Bld) [Volume fraction] 35.5 % Low 36.0 - 46.0 % [facility] Hemoglobin (Bld) [Mass/Vol] 12.1 g/dL 11.5 - 15.5 g/dL [facility] Immature granulocytes (Bld) [#/Vol] [facility] Immature granulocytes/100 WBC (Bld) 0.0 % [facility] Interpretation and review of laboratory results Abnormal [facility] Lymphocytes (Bld) [#/Vol] 0.77 10*3/uL Low [facility] Lymphocytes/100 WBC (Bld) 22.0 % [facility] MCH (RBC) [Entitic mass] 39.4 pg High 26.0 - 34.0 pg [facility] MCHC (RBC) [Mass/Vol] 34.1 g/dL 30.5 - 36.0 g/dL [facility] MCV (RBC) [Entitic vol] 115.6 fL High 80.0 - 100.0 fL [facility] Monocytes (Bld) [#/Vol] 0.51 10*3/uL [facility] Monocytes/100 WBC (Bld) 14.6 % [facility] Neutrophils (Bld) [#/Vol] 1.96 10*3/uL [facility] Neutrophils/100 WBC (Bld) 55.9 % [facility] Nucleated RBC (Bld) [#/Vol] [facility] Nucleated RBC/100 WBC (Bld) [Ratio] 0.0 % /100 WBC [facility] Platelet mean volume (Bld) [Entitic vol] 9.6 fL 9.0 - 12.7 fL [facility] Platelets (Bld) [#/Vol] 138 10*3/uL Low [facility] RBC (Bld) [#/Vol] 3.07 10*6/uL Low 3.90 - 5.2 0 m/uL [facility] WBC (Bld) [#/Vol] 3.50 10*3/uL Low [facility] Comprehensive metabolic 2000 panelOrdered By: Sasha Velasco on 06-13-2024 Albumin [Mass/Vol] 4.0 g/dL 3.9 - 4.9 g/dL [facility] ALP [Catalytic activity/Vol] 112 U/L 34 - 123 U/L [facility] ALT [Catalytic activity/Vol] 18 U/L 7 - 38 U/L [facility] Anion gap [Moles/Vol] 7 mmol/L Low 8 - 15 mmol/L [facility] AST [Catalytic activity/Vol] 35 U/L 13 - 35 U/L [facility] Bilirubin [Mass/Vol] 0.9 mg/dL 0.2 - 1 .3 mg/dL [facility] Calcium [Mass/Vol] 9.2 mg/dL 8.5 - 10. 2 mg/dL [facility] Chloride [Moles/Vol] 106 mmol/L 98 - 10 7 mmol/L [facility] CO2 [Moles/Vol] 27 mmol/L 22 - 30 mmol/L [facility] Creatinine [Mass/Vol] 1.23 mg/dL High 0.58 - 0.96 mg/dL [facility] GFR/1.73 sq M.predicted among non-blacks MDRD (S/P/Bld) [Vol rate/Area] 47 mL/min/{1.73_m2} Low - PINF [facility] Comment on above: Estimated Glomerular Filtration Rate (eGFR) is calculated using the 2020 CKD-EPI creatinine equation. This equation utilizes serum creatinine, sex, and age as parameters. The creatinine assay has traceable calibration to isotope dilution-mass spectrometry. Refer to KDIGO guidelines for clinical interpretation. In patients with unstable renal function, e.g. those with acute kidney injury, the eGFR may not accurately reflect actual GFR. Glucose [Mass/Vol] 104 mg/dL High 74 - 99 mg/dL [facility] Comment on above: The [place] [employer] (ADA) provides guidance for cutoff values for fasting glucose and random glucose. The ADA defines fasting as no caloric intake for at least 8 hours. Fasting plasma glucose results between 100 to 125 mg/dL indicate increased risk for diabetes (prediabetes). Fasting plasma glucose results greater than or equal to 126 mg/dL meet the criteria for diagnosis of diabetes. In the absence of unequivocal hyperglycemia, results should be confirmed by repeat testing. In a patient with classic symptoms of hyperglycemia or hyperglycemic crisis, random plasma glucose results greater than or equal to 200 mg/dL meet the criteria for diagnosis of diabetes. Reference: Standards of Medical Care in Diabetes 2016, [place] [employer]. Diabetes Care. 2016.39(Suppl 1). Interpretation and review of laboratory results Abnormal [facility] Potassium [Moles/Vol] 4.5 mmol/L 3.7 - 5.1 mmol/L [facility] Protein [Mass/Vol] 6.0 g/dL Low 6.3 - 8.0 g/dL [facility] Sodium [Moles/Vol] 140 mmol/L 136 - 144 mmol/L [facility] Urea nitrogen [Mass/Vol] 15 mg/dL 7 - 21 mg/dL [facility] CBC W Auto Differential pane l (Bld)on 05-23-2024 Basophils (Bld) [#/Vol] [facility] Basophils/100 WBC (Bld) 0.6 % [facility] Differential cell count method Nom (Bld) Auto [facility] Eosinophils (Bld) [#/Vol] 0.21 10*3/uL [facility] Eosinophils/100 WBC (Bld) 5.8 % [facility] Erythrocyte distribution width (RBC) [Ratio] 17.4 % High 11.5 - 15.0 % [facility] Hematocrit (Bld) [Volume fraction] 35.2 % Low 36.0 - 46.0 % [facility] Hemoglobin (Bld) [Mass/Vol] 12.1 g/dL 11.5 - 15.5 g/dL [facility] Immature granulocytes (Bld) [#/Vol] [facility] Immature granulocytes/100 WBC (Bld) 0.3 % [facility] Interpretation and review of laboratory results Abnormal [facility] Lymphocytes (Bld) [#/Vol] 0.65 10*3/uL Low [facility] Lymphocytes/100 WBC (Bld) 18.1 % [facility] MCH (RBC) [Entitic mass] 39.4 pg High 26.0 - 34.0 pg [facility] MCHC (RBC) [Mass/Vol] 34.4 g/dL 30.5 - 36.0 g/dL [facility] MCV (RBC) [Entitic vol] 114.7 fL High 80.0 - 100.0 fL [facility] Monocytes (Bld) [#/Vol] 0.56 10*3/uL [facility] Monocytes/100 WBC (Bld) 15.6 % [facility] Neutrophils (Bld) [#/Vol] 2.15 10*3/uL [facility] Neutrophils/100 WBC (Bld) 59.6 % [facility] Nucleated RBC (Bld) [#/Vol] NINF [facility] Nucleated RBC/100 WBC (Bld) [Ratio] 0.0 % /100 WBC [facility] Platelet mean volume (Bld) [Entitic vol] 9.9 fL 9.0 - 12.7 fL [facility] Platelets (Bld) [#/Vol] 136 10*3/uL Low [facility] RBC (Bld) [#/Vol] 3.07 10*6/uL Low 3.90 - 5.2 0 m/uL [facility] WBC (Bld) [#/Vol] 3.60 10*3/uL Low [facility] Comprehensive metabolic 2000 panelOrdered By: Sasha Velasco on 05-23-2024 Albumin [Mass/Vol] 4.2 g/dL 3.9 - 4.9 g/dL [facility] ALP [Catalytic activity/Vol] 116 U/L 34 - 123 U/L [facility] ALT [Catalytic activity/Vol] 17 U/L 7 - 38 U/L [facility] Anion gap [Moles/Vol] 9 mmol/L 8 - 15 mmol/L [facility] AST [Catalytic activity/Vol] 37 U/L High 13 - 35 U/L [facility] Bilirubin [Mass/Vol] 1.1 mg/dL 0.2 - 1 .3 mg/dL [facility] Calcium [Mass/Vol] 10.2 mg/dL 8.5 - 10. 2 mg/dL [facility] Chloride [Moles/Vol] 103 mmol/L 98 - 10 7 mmol/L [facility] CO2 [Moles/Vol] 28 mmol/L 22 - 30 mmol/L [facility] Creatinine [Mass/Vol] 1.40 mg/dL High 0.58 - 0.96 mg/dL [facility] GFR/1.73 sq M.predicted among non-blacks MDRD (S/P/Bld) [Vol rate/Area] 41 mL/min/{1.73_m2} Low - PINF [facility] Comment on above: Estimated Glomerular Filtration Rate (eGFR) is calculated using the 202 CKD-EPI creatinine equation. This equation utilizes serum creatinine, sex, and age as parameters. The creatinine assay has traceable calibration to isotope dilution-mass spectrometry. Refer to KDIGO guidelines for clinical interpretation. In patients with unstable renal function, e.g. those with acute kidney injury, the eGFR may not accurately reflect actual GFR. Glucose [Mass/Vol] 111 mg/dL High 74 - 99 mg/dL [facility] Comment on above: The [place] [employer] (ADA) provides guidance for cutoff values for fasting glucose and random glucose. The ADA defines fasting as no caloric intake for at least 8 hours. Fasting plasma glucose results between 100 to 125 mg/dL indicate increased risk for diabetes (prediabetes). Fasting plasma glucose results greater than or equal to 126 mg/dL meet the criteria for diagnosis of diabetes. In the absence of unequivocal hyperglycemia, results should be confirmed by repeat testing. In a patient with classic symptoms of hyperglycemia or hyperglycemic crisis, random plasma glucose results greater than or equal to 200 mg/dL meet the criteria for diagnosis of diabetes. Reference: Standards of Medical Care in Diabetes 2016, [place] [employer]. Diabetes Care. 2016.39(Suppl 1). Interpretation and review of laboratory results Abnormal [facility] Potassium [Moles/Vol] 3.8 mmol/L 3.7 - 5.1 mmol/L [facility] Protein [Mass/Vol] 6.1 g/dL Low 6.3 - 8.0 g/dL [facility] Sodium [Moles/Vol] 140 mmol/L 136 - 144 mmol/L [facility] Urea nitrogen [Mass/Vol] 16 mg/dL 7 - 21 mg/dL [facility] Cardiology Visit Reporton Cardiology Visit Report [facility] [address] [place] [address] OFFICE VISIT Date of Service: 05/21/24 MR#: [id number] Acct: [id number] Name: RENATE CHRISTIANSEN Rep #: [id number] : 1955 Provider: JOANNE nix Age/Sex: 68/F Location[facility] Status: Signed HPI HPI History of Present Illness Details: This is a pleasant 68-year-old lady who presents to the office today for a cardiovascular follow-up visit. She has a history of breast carcinoma diagnosed in 2016 status post mastectomy who is currently on chemotherapy. She is currently on trastuzumab. She had previously been on Taxotere, Herceptin, and Perjeta. In 2016, her ejection fraction had reduced to 45%, improved in 2020 to 55% with a global longitudinal strain score of -19 and then in July of 2020 was 60%, stage I diastolic dysfunction, and a global longitudinal strain score of -20.6. Echocardiogram from January 2022 demonstrated an ejection fraction of 60% with a global longitudinal strain of -17.8. Patient's echocardiogram from 11/03/2022 demonstrated ejection fraction of 60%, and a normal global longitudinal strain. Her echocardiogram from 05/25/2023 demonstrated and ejection fraction of 60%, and normal -18.3% global longitudinal strain. She had a repeat echocardiogram in October 2023 demonstrating ejection fraction of 55% and a global longitudinal strain of -16. She tells me that she has been started on a combination of Herceptin and Xeloda. Repeat echocardiogram in December 2023 showed ejection fraction of 60% and normal global longitudinal strain at -20.3 and in January 2024 for an ejection fraction of 60% and normal global longitudinal strain at -19.1%. She denies chest, arm, jaw, or neck discomfort. She denies palpitations. She denies bilateral lower extremity edema. She denies claudication. She denies shortness of breath with activity, shortness of breath at rest, orthopnea, or PND. She states sleeping propped up to assist with GERD from chemotherapy. She denies chronic cough. She denies significant, sudden weight gain. She denies lightheadedness, dizziness, near-syncope, or syncope. She denies blood in urine, blood in stool, or epistaxis. He denies fever with chills. She denies myalgia. She denies fatigue. Her exercise level has remained stable. 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 Required: No Accompanied by: Self Is patient in pain?: No Allergies nirmatrelvir (From Paxlovid) Allergy (Intermediate, Verified 05/21/24 10:09) KIDNEY ritonavir (From Paxlovid) Allergy (Intermediate, Verified 05/21/24 10:09) KIDNEY acetaminophen (From Percocet) Allergy (Verified 05/21/24 10:09) hives and nausea amoxicillin Allergy (Verified 05/21/24 10:09) Fever and skin rash Cephalosporins Allergy (Verified 05/21/24 10:09) Fever and skin rash ciprofloxacin (From Cipro) Allergy (Verified 05/21/24 10:09) Fever and skin rash codeine Allergy (Verified 05/21/24 10:09) Fever and skin rash erythromycin base Allergy (Verified 05/21/24 10:09) Fever and skin rash hydrocodone (From [place]) Allergy (Verified 05/21/24 10:09) hives and nausea latex Allergy (Verified 05/21/24 10:09) Rash nalbuphine (From [place]) Allergy (Verified 05/21/24 10:09) Fever and skin rash oxycodone (From Percocet) Allergy (Verified 05/21/24 10:09) hives and nausea prednisone Allergy (Verified 05/21/24 10:09) hives with blood underneath Sulfa (Sulfonamide Antibiotics) Allergy (Verified 05/21/24 10:09) Fever and skin rash aspirin Adverse Reaction (Verified 05/21/24 10:09) stomach bleed AND DARK STOOL Food Allergies: Uncoded Adverse Reaction (Verified 05/21/24 10:09) migraine meperidine (From Demerol) Adverse Reaction (Verified 05/21/24 10:09) Upset Stomach Medications ???Medication ???Instructions ???Recorded ???Confirmed ???Type naproxen sodium 220 mg capsule 220 mg PO Q8H PRN PRN Pain Or Fever 03/29/19 05/21/24 History metoprolol tartrate 25 mg tablet 25 mg PO BID 01/22/20 05/21/24 History pregabalin 150 mg capsule 150 mg PO BID 09/15/21 05/21/24 History multivitamin 1 tab PO DAILY 11/26/22 05/21/24 History diphenhydramine HCl 25 mg capsule 25 mg PO QHS 02/16/23 05/21/24 History (Benadryl) acetaminophen 500 mg capsule 500 mg PO .COMPLEX 02/17/23 05/21/24 History capecitabine 500 mg tablet 1,500 mg PO BID 11/22/23 05/21/24 History tucatinib 50 mg tablet (Tukysa) 200 mg PO Q12H 11/22/23 05/21/24 History losartan 100 mg tablet 100 mg PO DAILY for blood pressure 02/03/24 05/21/24 Rx #90 TABLETS (more content not included)... Normal [facility] CBC W Auto Differential pane l (Bld)on 05-02-2024 Basophils (Bld) [#/Vol] [facility] Basophils/100 WBC (Bld) 0.3 % [facility] Differential cell count method Nom (Bld) Auto [facility] Eosinophils (Bld) [#/Vol] 0.16 10*3/uL [facility] Eosinophils/100 WBC (Bld) 4.7 % [facility] Erythrocyte distribution width (RBC) [Ratio] 17.7 % High 11.5 - 15.0 % [facility] Hematocrit (Bld) [Volume fraction] 33.9 % Low 36.0 - 46.0 % [facility] Hemoglobin (Bld) [Mass/Vol] 11.9 g/dL 11.5 - 15.5 g/dL [facility] Immature granulocytes (Bld) [#/Vol] [facility] Immature granulocytes/100 WBC (Bld) 0.0 % [facility] Interpretation and review of laboratory results Abnormal [facility] Lymphocytes (Bld) [#/Vol] 0.80 10*3/uL Low [facility] Lymphocytes/100 WBC (Bld) 23.3 % [facility] MCH (RBC) [Entitic mass] 39.5 pg High 26.0 - 34.0 pg [facility] MCHC (RBC) [Mass/Vol] 35.1 g/dL 30.5 - 36.0 g/dL [facility] MCV (RBC) [Entitic vol] 112.6 fL High 80.0 - 100.0 fL [facility] Monocytes (Bld) [#/Vol] 0.49 10*3/uL NINF [facility] Monocytes/100 WBC (Bld) 14.3 % [facility] Neutrophils (Bld) [#/Vol] 1.97 10*3/uL [facility] Neutrophils/100 WBC (Bld) 57.4 % [facility] Nucleated RBC (Bld) [#/Vol] NINF [facility] Nucleated RBC/100 WBC (Bld) [Ratio] 0.0 % /100 WBC [facility] Platelet mean volume (Bld) [Entitic vol] 9.3 fL 9.0 - 12.7 fL [facility] Platelets (Bld) [#/Vol] 123 10*3/uL Low [facility] RBC (Bld) [#/Vol] 3.01 10*6/uL Low 3.90 - 5.2 0 m/uL [facility] WBC (Bld) [#/Vol] 3.43 10*3/uL Low [facility] Comprehensive metabolic 2000 panelOrdered By: Evette Landry on 05-02-2024 Albumin [Mass/Vol] 4.1 g/dL 3.9 - 4.9 g/dL [facility] ALP [Catalytic activity/Vol] 116 U/L 34 - 123 U/L [facility] ALT [Catalytic activity/Vol] 23 U/L 7 - 38 U/L [facility] Anion gap [Moles/Vol] 10 mmol/L 8 - 15 mmol/L [facility] AST [Catalytic activity/Vol] 42 U/L High 13 - 35 U/L [facility] Bilirubin [Mass/Vol] 0.8 mg/dL 0.2 - 1 .3 mg/dL [facility] Calcium [Mass/Vol] 10.2 mg/dL 8.5 - 10. 2 mg/dL [facility] Chloride [Moles/Vol] 104 mmol/L 98 - 10 7 mmol/L [facility] CO2 [Moles/Vol] 27 mmol/L 22 - 30 mmol/L [facility] Creatinine [Mass/Vol] 1.12 mg/dL High 0.58 - 0.96 mg/dL [facility] GFR/1.73 sq M.predicted among non-blacks MDRD (S/P/Bld) [Vol rate/Area] 53 mL/min/{1.73_m2} Low - PINF [facility] Comment on above: Estimated Glomerular Filtration Rate (eGFR) is calculated using the 2020 CKD-EPI creatinine equation. This equation utilizes serum creatinine, sex, and age as parameters. The creatinine assay has traceable calibration to isotope dilution-mass spectrometry. Refer to KDIGO guidelines for clinical interpretation. In patients with unstable renal function, e.g. those with acute kidney injury, the eGFR may not accurately reflect actual GFR. Glucose [Mass/Vol] 141 mg/dL High 74 - 99 mg/dL [facility] Comment on above: The [place] [employer] (ADA) provides guidance for cutoff values for fasting glucose and random glucose. The ADA defines fasting as no caloric intake for at least 8 hours. Fasting plasma glucose results between 100 to 125 mg/dL indicate increased risk for diabetes (prediabetes). Fasting plasma glucose results greater than or equal to 126 mg/dL meet the criteria for diagnosis of diabetes. In the absence of unequivocal hyperglycemia, results should be confirmed by repeat testing. In a patient with classic symptoms of hyperglycemia or hyperglycemic crisis, random plasma glucose results greater than or equal to 200 mg/dL meet the criteria for diagnosis of diabetes. Reference: Standards of Medical Care in Diabetes 2016, [place] [employer]. Diabetes Care. 2016.39(Suppl 1). Interpretation and review of laboratory results Abnormal [facility] Potassium [Moles/Vol] 3.2 mmol/L Low 3.7 - 5.1 mmol/L [facility] Protein [Mass/Vol] 6.1 g/dL Low 6.3 - 8.0 g/dL [facility] Sodium [Moles/Vol] 141 mmol/L 136 - 144 mmol/L [facility] Urea nitrogen [Mass/Vol] 9 mg/dL 7 - 21 mg/dL [facility] CBC W Auto Differential pane l (Bld)on 04-11-2024 Basophils (Bld) [#/Vol] 0.03 10*3/uL [facility] Basophils/100 WBC (Bld) 0.8 % [facility] Differential cell count method Nom (Bld) Auto [facility] Eosinophils (Bld) [#/Vol] 0.26 10*3/uL [facility] Eosinophils/100 WBC (Bld) 7.2 % [facility] Erythrocyte distribution width (RBC) [Ratio] 17.8 % High 11.5 - 15.0 % [facility] Hematocrit (Bld) [Volume fraction] 33.9 % Low 36.0 - 46.0 % [facility] Hemoglobin (Bld) [Mass/Vol] 11.5 g/dL 11.5 - 15.5 g/dL [facility] Immature granulocytes (Bld) [#/Vol] NINF [facility] Immature granulocytes/100 WBC (Bld) 0.3 % [facility] Interpretation and review of laboratory results Abnormal [facility] Lymphocytes (Bld) [#/Vol] 0.79 10*3/uL Low [facility] Lymphocytes/100 WBC (Bld) 21.8 % [facility] MCH (RBC) [Entitic mass] 38.0 pg High 26.0 - 34.0 pg [facility] MCHC (RBC) [Mass/Vol] 33.9 g/dL 30.5 - 36.0 g/dL [facility] MCV (RBC) [Entitic vol] 111.9 fL High 80.0 - 100.0 fL [facility] Monocytes (Bld) [#/Vol] 0.51 10*3/uL NINF [facility] Monocytes/100 WBC (Bld) 14.1 % [facility] Neutrophils (Bld) [#/Vol] 2.02 10*3/uL [facility] Neutrophils/100 WBC (Bld) 55.8 % [facility] Nucleated RBC (Bld) [#/Vol] [facility] Nucleated RBC/100 WBC (Bld) [Ratio] 0.0 % /100 WBC [facility] Platelet mean volume (Bld) [Entitic vol] 9.4 fL 9.0 - 12.7 fL [facility] Platelets (Bld) [#/Vol] 126 10*3/uL Low [facility] RBC (Bld) [#/Vol] 3.03 10*6/uL Low 3.90 - 5.2 0 m/uL [facility] WBC (Bld) [#/Vol] 3.62 10*3/uL Low [facility] Comprehensive metabolic 2000 panelOrdered By: Sasha Velasco on 04-11-2024 Albumin [Mass/Vol] 3.8 g/dL Low 3.9 - 4.9 g/dL [facility] ALP [Catalytic activity/Vol] 99 U/L 34 - 123 U/L [facility] ALT [Catalytic activity/Vol] 13 U/L 7 - 38 U/L [facility] Anion gap [Moles/Vol] 10 mmol/L 8 - 15 mmol/L [facility] AST [Catalytic activity/Vol] 30 U/L 13 - 35 U/L [facility] Bilirubin [Mass/Vol] 0.7 mg/dL 0.2 - 1 .3 mg/dL [facility] Calcium [Mass/Vol] 9.9 mg/dL 8.5 - 10. 2 mg/dL [facility] Chloride [Moles/Vol] 105 mmol/L 98 - 10 7 mmol/L [facility] CO2 [Moles/Vol] 25 mmol/L 22 - 30 mmol/L [facility] Creatinine [Mass/Vol] 1.11 mg/dL High 0.58 - 0.96 mg/dL [facility] GFR/1.73 sq M.predicted among non-blacks MDRD (S/P/Bld) [Vol rate/Area] 54 mL/min/{1.73_m2} Low - PINF [facility] Comment on above: Estimated Glomerular Filtration Rate (eGFR) is calculated using the 2020 CKD-EPI creatinine equation. This equation utilizes serum creatinine, sex, and age as parameters. The creatinine assay has traceable calibration to isotope dilution-mass spectrometry. Refer to KDIGO guidelines for clinical interpretation. In patients with unstable renal function, e.g. those with acute kidney injury, the eGFR may not accurately reflect actual GFR. Glucose [Mass/Vol] 125 mg/dL High 74 - 99 mg/dL [facility] Comment on above: The [place] [employer] (ADA) provides guidance for cutoff values for fasting glucose and random glucose. The ADA defines fasting as no caloric intake for at least 8 hours. Fasting plasma glucose results between 100 to 125 mg/dL indicate increased risk for diabetes (prediabetes). Fasting plasma glucose results greater than or equal to 126 mg/dL meet the criteria for diagnosis of diabetes. In the absence of unequivocal hyperglycemia, results should be confirmed by repeat testing. In a patient with classic symptoms of hyperglycemia or hyperglycemic crisis, random plasma glucose results greater than or equal to 200 mg/dL meet the criteria for diagnosis of diabetes. Reference: Standards of Medical Care in Diabetes 2016, [place] [employer]. Diabetes Care. 2016.39(Suppl 1). Interpretation and review of laboratory results Abnormal [facility] Potassium [Moles/Vol] 4.1 mmol/L 3.7 - 5.1 mmol/L [facility] Protein [Mass/Vol] 5.6 g/dL Low 6.3 - 8.0 g/dL [facility] Sodium [Moles/Vol] 140 mmol/L 136 - 144 mmol/L [facility] Urea nitrogen [Mass/Vol] 10 mg/dL 7 - 21 mg/dL [facility] CBC W Auto Differential pane l (Bld)on 03-21-2024 Basophils (Bld) [#/Vol] [facility] Basophils/100 WBC (Bld) 0.3 % [facility] Differential cell count method Nom (Bld) Auto [facility] Eosinophils (Bld) [#/Vol] 0.19 10*3/uL [facility] Eosinophils/100 WBC (Bld) 6.1 % [facility] Erythrocyte distribution width (RBC) [Ratio] 17.0 % High 11.5 - 15.0 % [facility] Hematocrit (Bld) [Volume fraction] 32.8 % Low 36.0 - 46.0 % [facility] Hemoglobin (Bld) [Mass/Vol] 11.2 g/dL Low 11.5 - 15.5 g/dL [facility] Immature granulocytes (Bld) [#/Vol] [facility] Immature granulocytes/100 WBC (Bld) 0.3 % [facility] Interpretation and review of laboratory results Abnormal [facility] Lymphocytes (Bld) [#/Vol] 0.77 10*3/uL Low [facility] Lymphocytes/100 WBC (Bld) 24.8 % [facility] MCH (RBC) [Entitic mass] 38.0 pg High 26.0 - 34.0 pg [facility] MCHC (RBC) [Mass/Vol] 34.1 g/dL 30.5 - 36.0 g/dL [facility] MCV (RBC) [Entitic vol] 111.2 fL High 80.0 - 100.0 fL [facility] Monocytes (Bld) [#/Vol] 0.40 10*3/uL [facility] Monocytes/100 WBC (Bld) 12.9 % [facility] Neutrophils (Bld) [#/Vol] 1.73 10*3/uL [facility] Neutrophils/100 WBC (Bld) 55.6 % [facility] Nucleated RBC (Bld) [#/Vol] NINF [facility] Nucleated RBC/100 WBC (Bld) [Ratio] 0.0 % /100 WBC [facility] Platelet mean volume (Bld) [Entitic vol] 9.2 fL 9.0 - 12.7 fL [facility] Platelets (Bld) [#/Vol] 124 10*3/uL Low [facility] RBC (Bld) [#/Vol] 2.95 10*6/uL Low 3.90 - 5.2 0 m/uL [facility] WBC (Bld) [#/Vol] 3.11 10*3/uL Low [facility] Comprehensive metabolic 2000 panelOrdered By: Sasha Velasco on 03-21-2024 Albumin [Mass/Vol] 3.9 g/dL 3.9 - 4.9 g/dL [facility] ALP [Catalytic activity/Vol] 112 U/L 34 - 123 U/L [facility] ALT [Catalytic activity/Vol] 15 U/L 7 - 38 U/L [facility] Anion gap [Moles/Vol] 7 mmol/L Low 8 - 15 mmol/L [facility] AST [Catalytic activity/Vol] 33 U/L 13 - 35 U/L [facility] Bilirubin [Mass/Vol] 0.6 mg/dL 0.2 - 1 .3 mg/dL [facility] Calcium [Mass/Vol] 9.4 mg/dL 8.5 - 10. 2 mg/dL [facility] Chloride [Moles/Vol] 108 mmol/L High 98 - 10 7 mmol/L [facility] CO2 [Moles/Vol] 25 mmol/L 22 - 30 mmol/L [facility] Creatinine [Mass/Vol] 1.07 mg/dL High 0.58 - 0.96 mg/dL [facility] GFR/1.73 sq M.predicted among non-blacks MDRD (S/P/Bld) [Vol rate/Area] 56 mL/min/{1.73_m2} Low - PINF [facility] Comment on above: Estimated Glomerular Filtration Rate (eGFR) is calculated using the 2020 CKD-EPI creatinine equation. This equation utilizes serum creatinine, sex, and age as parameters. The creatinine assay has traceable calibration to isotope dilution-mass spectrometry. Refer to KDIGO guidelines for clinical interpretation. In patients with unstable renal function, e.g. those with acute kidney injury, the eGFR may not accurately reflect actual GFR. Glucose [Mass/Vol] 116 mg/dL High 74 - 99 mg/dL [facility] Comment on above: The [place] [employer] (ADA) provides guidance for cutoff values for fasting glucose and random glucose. The ADA defines fasting as no caloric intake for at least 8 hours. Fasting plasma glucose results between 100 to 125 mg/dL indicate increased risk for diabetes (prediabetes). Fasting plasma glucose results greater than or equal to 126 mg/dL meet the criteria for diagnosis of diabetes. In the absence of unequivocal hyperglycemia, results should be confirmed by repeat testing. In a patient with classic symptoms of hyperglycemia or hyperglycemic crisis, random plasma glucose results greater than or equal to 200 mg/dL meet the criteria for diagnosis of diabetes. Reference: Standards of Medical Care in Diabetes 2016, [place] [employer]. Diabetes Care. 2016.39(Suppl 1). Interpretation and review of laboratory results Abnormal [facility] Potassium [Moles/Vol] 3.8 mmol/L 3.7 - 5.1 mmol/L [facility] Protein [Mass/Vol] 5.7 g/dL Low 6.3 - 8.0 g/dL [facility] Sodium [Moles/Vol] 140 mmol/L 136 - 144 mmol/L [facility] Urea nitrogen [Mass/Vol] 8 mg/dL 7 - 21 mg/dL [facility] CBC W Auto Differential pane l (Bld)on 02-27-2024 Basophils (Bld) [#/Vol] [facility] Basophils/100 WBC (Bld) 0.3 % [facility] Differential cell count method Nom (Bld) Auto [facility] Eosinophils (Bld) [#/Vol] 0.19 10*3/uL [facility] Eosinophils/100 WBC (Bld) 6.1 % [facility] Erythrocyte distribution width (RBC) [Ratio] 17.9 % High 11.5 - 15.0 % [facility] Hematocrit (Bld) [Volume fraction] 32.5 % Low 36.0 - 46.0 % [facility] Hemoglobin (Bld) [Mass/Vol] 11.0 g/dL Low 11.5 - 15.5 g/dL [facility] Immature granulocytes (Bld) [#/Vol] [facility] Immature granulocytes/100 WBC (Bld) 0.3 % [facility] Interpretation and review of laboratory results Abnormal [facility] Lymphocytes (Bld) [#/Vol] 0.77 10*3/uL Low [facility] Lymphocytes/100 WBC (Bld) 24.5 % [facility] MCH (RBC) [Entitic mass] 38.3 pg High 26.0 - 34.0 pg [facility] MCHC (RBC) [Mass/Vol] 33.8 g/dL 30.5 - 36.0 g/dL [facility] MCV (RBC) [Entitic vol] 113.2 fL High 80.0 - 100.0 fL [facility] Monocytes (Bld) [#/Vol] 0.53 10*3/uL [facility] Monocytes/100 WBC (Bld) 16.9 % [facility] Neutrophils (Bld) [#/Vol] 1.63 10*3/uL [facility] Neutrophils/100 WBC (Bld) 51.9 % [facility] Nucleated RBC (Bld) [#/Vol] [facility] Nucleated RBC/100 WBC (Bld) [Ratio] 0.0 % /100 WBC [facility] Platelet mean volume (Bld) [Entitic vol] 9.3 fL 9.0 - 12.7 fL [facility] Platelets (Bld) [#/Vol] 136 10*3/uL Low [facility] RBC (Bld) [#/Vol] 2.87 10*6/uL Low 3.90 - 5.2 0 m/uL [facility] WBC (Bld) [#/Vol] 3.14 10*3/uL Low [facility] Comprehensive metabolic 2000 panelOrdered By: Sasha Velasco on 02-27-2024 Albumin [Mass/Vol] 4.0 g/dL 3.9 - 4.9 g/dL [facility] ALP [Catalytic activity/Vol] 111 U/L 34 - 123 U/L [facility] ALT [Catalytic activity/Vol] 18 U/L 7 - 38 U/L [facility] Anion gap [Moles/Vol] 10 mmol/L 8 - 15 mmol/L [facility] AST [Catalytic activity/Vol] 37 U/L High 13 - 35 U/L [facility] Bilirubin [Mass/Vol] 0.6 mg/dL 0.2 - 1 .3 mg/dL [facility] Calcium [Mass/Vol] 9.0 mg/dL 8.5 - 10. 2 mg/dL [facility] Chloride [Moles/Vol] 109 mmol/L High 98 - 10 7 mmol/L [facility] CO2 [Moles/Vol] 22 mmol/L 22 - 30 mmol/L [facility] Creatinine [Mass/Vol] 1.26 mg/dL High 0.58 - 0.96 mg/dL [facility] GFR/1.73 sq M.predicted among non-blacks MDRD (S/P/Bld) [Vol rate/Area] 46 mL/min/{1.73_m2} Low - PINF [facility] Comment on above: Estimated Glomerular Filtration Rate (eGFR) is calculated using the 2020 CKD-EPI creatinine equation. This equation utilizes serum creatinine, sex, and age as parameters. The creatinine assay has traceable calibration to isotope dilution-mass spectrometry. Refer to KDIGO guidelines for clinical interpretation. In patients with unstable renal function, e.g. those with acute kidney injury, the eGFR may not accurately reflect actual GFR. Glucose [Mass/Vol] 133 mg/dL High 74 - 99 mg/dL [facility] Comment on above: The [place] [employer] (ADA) provides guidance for cutoff values for fasting glucose and random glucose. The ADA defines fasting as no caloric intake for at least 8 hours. Fasting plasma glucose results between 100 to 125 mg/dL indicate increased risk for diabetes (prediabetes). Fasting plasma glucose results greater than or equal to 126 mg/dL meet the criteria for diagnosis of diabetes. In the absence of unequivocal hyperglycemia, results should be confirmed by repeat testing. In a patient with classic symptoms of hyperglycemia or hyperglycemic crisis, random plasma glucose results greater than or equal to 200 mg/dL meet the criteria for diagnosis of diabetes. Reference: Standards of Medical Care in Diabetes 2016, [place] [employer]. Diabetes Care. 2016.39(Suppl 1). Interpretation and review of laboratory results Abnormal [facility] Potassium [Moles/Vol] 4.2 mmol/L 3.7 - 5.1 mmol/L [facility] Protein [Mass/Vol] 5.8 g/dL Low 6.3 - 8.0 g/dL [facility] Sodium [Moles/Vol] 141 mmol/L 136 - 144 mmol/L [facility] Urea nitrogen [Mass/Vol] 9 mg/dL 7 - 21 mg/dL [facility] Comprehensive metabolic 2000 panelOrdered By: Sasha Velasco on 02-03-2024 Albumin [Mass/Vol] 3.8 g/dL Low 3.9 - 4.9 g/dL [facility] ALP [Catalytic activity/Vol] 124 U/L High 34 - 123 U/L [facility] ALT [Catalytic activity/Vol] 24 U/L 7 - 38 U/L [facility] Anion gap [Moles/Vol] 11 mmol/L 8 - 15 mmol/L [facility] AST [Catalytic activity/Vol] 41 U/L High 13 - 35 U/L [facility] Bilirubin [Mass/Vol] 0.8 mg/dL 0.2 - 1 .3 mg/dL [facility] Calcium [Mass/Vol] 9.6 mg/dL 8.5 - 10. 2 mg/dL [facility] Chloride [Moles/Vol] 109 mmol/L High 98 - 10 7 mmol/L [facility] CO2 [Moles/Vol] 23 mmol/L 22 - 30 mmol/L [facility] Creatinine [Mass/Vol] 1.52 mg/dL High 0.58 - 0.96 mg/dL [facility] GFR/1.73 sq M.predicted among non-blacks MDRD (S/P/Bld) [Vol rate/Area] 37 mL/min/{1.73_m2} Low - PINF [facility] Comment on above: Estimated Glomerular Filtration Rate (eGFR) is calculated using the 2020 CKD-EPI creatinine equation. This equation utilizes serum creatinine, sex, and age as parameters. The creatinine assay has traceable calibration to isotope dilution-mass spectrometry. Refer to KDIGO guidelines for clinical interpretation. In patients with unstable renal function, e.g. those with acute kidney injury, the eGFR may not accurately reflect actual GFR. Glucose [Mass/Vol] 149 mg/dL High 74 - 99 mg/dL [facility] Comment on above: The [place] [employer] (ADA) provides guidance for cutoff values for fasting glucose and random glucose. The ADA defines fasting as no caloric intake for at least 8 hours. Fasting plasma glucose results between 100 to 125 mg/dL indicate increased risk for diabetes (prediabetes). Fasting plasma glucose results greater than or equal to 126 mg/dL meet the criteria for diagnosis of diabetes. In the absence of unequivocal hyperglycemia, results should be confirmed by repeat testing. In a patient with classic symptoms of hyperglycemia or hyperglycemic crisis, random plasma glucose results greater than or equal to 200 mg/dL meet the criteria for diagnosis of diabetes. Reference: Standards of Medical Care in Diabetes 2016, [place] [employer]. Diabetes Care. 2016.39(Suppl 1). Interpretation and review of laboratory results Abnormal [facility] Potassium [Moles/Vol] 3.5 mmol/L Low 3.7 - 5.1 mmol/L [facility] Protein [Mass/Vol] 5.8 g/dL Low 6.3 - 8.0 g/dL [facility] Sodium [Moles/Vol] 143 mmol/L 136 - 144 mmol/L [facility] Urea nitrogen [Mass/Vol] 18 mg/dL 7 - 21 mg/dL [facility] CBC W Auto Differential pane l (Bld)on 01-16-2024 Basophils (Bld) [#/Vol] [facility] Basophils/100 WBC (Bld) 0.6 % [facility] Differential cell count method Nom (Bld) Auto [facility] Eosinophils (Bld) [#/Vol] 0.27 10*3/uL [facility] Eosinophils/100 WBC (Bld) 8.1 % [facility] Erythrocyte distribution width (RBC) [Ratio] 20.0 % High 11.5 - 15.0 % [facility] Hematocrit (Bld) [Volume fraction] 33.9 % Low 36.0 - 46.0 % [facility] Hemoglobin (Bld) [Mass/Vol] 11.3 g/dL Low 11.5 - 15.5 g/dL [facility] Immature granulocytes (Bld) [#/Vol] [facility] Immature granulocytes/100 WBC (Bld) 0.6 % [facility] Interpretation and review of laboratory results Abnormal [facility] Lymphocytes (Bld) [#/Vol] 0.79 10*3/uL Low [facility] Lymphocytes/100 WBC (Bld) 23.7 % [facility] MCH (RBC) [Entitic mass] 35.4 pg High 26.0 - 34.0 pg [facility] MCHC (RBC) [Mass/Vol] 33.3 g/dL 30.5 - 36.0 g/dL [facility] MCV (RBC) [Entitic vol] 106.3 fL High 80.0 - 100.0 fL [facility] Monocytes (Bld) [#/Vol] 0.52 10*3/uL NINF [facility] Monocytes/100 WBC (Bld) 15.6 % [facility] Neutrophils (Bld) [#/Vol] 1.71 10*3/uL [facility] [facility] Neutrophils/100 WBC (Bld) 51.4 % [facility] Nucleated RBC (Bld) [#/Vol] NINF [facility] Nucleated RBC/100 WBC (Bld) [Ratio] 0.0 % /100 WBC [facility] Platelet mean volume (Bld) [Entitic vol] 9.5 fL 9.0 - 12.7 fL [facility] Platelets (Bld) [#/Vol] 79 10*3/uL Low [facility] Comment on above: No clot detected. RBC (Bld) [#/Vol] 3.19 10*6/uL Low 3.90 - 5.2 0 m/uL [facility] WBC (Bld) [#/Vol] 3.33 10*3/uL Low [facility] Comprehensive metabolic 2000 panelOrdered By: Sasha Velasco on 01-16-2024 Albumin [Mass/Vol] 3.7 g/dL Low 3.9 - 4.9 g/dL [facility] ALP [Catalytic activity/Vol] 97 U/L 34 - 123 U/L [facility] ALT [Catalytic activity/Vol] 17 U/L 7 - 38 U/L [facility] Anion gap [Moles/Vol] 7 mmol/L Low 8 - 15 mmol/L [facility] AST [Catalytic activity/Vol] 32 U/L 13 - 35 U/L [facility] Bilirubin [Mass/Vol] 1.0 mg/dL 0.2 - 1 .3 mg/dL [facility] Calcium [Mass/Vol] 10.3 mg/dL High 8.5 - 10. 2 mg/dL [facility] Chloride [Moles/Vol] 109 mmol/L High 98 - 10 7 mmol/L [facility] CO2 [Moles/Vol] 26 mmol/L 22 - 30 mmol/L [facility] Creatinine [Mass/Vol] 0.96 mg/dL 0.58 - 0.96 mg/dL [facility] GFR/1.73 sq M.predicted among non-blacks MDRD (S/P/Bld) [Vol rate/Area] 64 mL/min/{1.73_m2} - PINF [facility] Comment on above: Estimated Glomerular Filtration Rate (eGFR) is calculated using the 2020 CKD-EPI creatinine equation. This equation utilizes serum creatinine, sex, and age as parameters. The creatinine assay has traceable calibration to isotope dilution-mass spectrometry. Refer to KDIGO guidelines for clinical interpretation. In patients with unstable renal function, e.g. those with acute kidney injury, the eGFR may not accurately reflect actual GFR. Glucose [Mass/Vol] 125 mg/dL High 74 - 99 mg/dL [facility] Comment on above: The [place] [employer] (ADA) provides guidance for cutoff values for fasting glucose and random glucose. The ADA defines fasting as no caloric intake for at least 8 hours. Fasting plasma glucose results between 100 to 125 mg/dL indicate increased risk for diabetes (prediabetes). Fasting plasma glucose results greater than or equal to 126 mg/dL meet the criteria for diagnosis of diabetes. In the absence of unequivocal hyperglycemia, results should be confirmed by repeat testing. In a patient with classic symptoms of hyperglycemia or hyperglycemic crisis, random plasma glucose results greater than or equal to 200 mg/dL meet the criteria for diagnosis of diabetes. Reference: Standards of Medical Care in Diabetes 2016, [place] [employer]. Diabetes Care. 2016.39(Suppl 1). Interpretation and review of laboratory results Abnormal [facility] Potassium [Moles/Vol] 3.4 mmol/L Low 3.7 - 5.1 mmol/L [facility] Protein [Mass/Vol] 5.3 g/dL Low 6.3 - 8.0 g/dL [facility] Sodium [Moles/Vol] 142 mmol/L 136 - 144 mmol/L [facility] Urea nitrogen [Mass/Vol] 13 mg/dL 7 - 21 mg/dL [facility] ONC Echo Limited w/Contrasto n 01-12-2024 ONC Echo Limited w/Contrast [facility] [address] [place] [address] ONC Echo Limited w/Contrast 01/12/24 0702 MR#: [id number] Acct: [id number] Name: RENATE CHRISTIANSEN Rep #: [id number] : 1955 68 From: Mayco Galeano MD Attending Dr: Dr. Rip Rivers, DO Status: REG CL I Ordering Dr: Rip Rivers DO Date: 01/12/24 Location: [facility] Sex: F C Admitted: Version 2 Reason For Study: Encounter for monitoring drug therapy Procedure This was a limited 2D transthoracic echocardiogram. Myocardial strain analysis was performed in this exam to aid in the assessment of cardiac function. Exam performed in department. Left Ventricle Normal LV size. Left ventricular systolic function is normal. The left ventricular ejection fraction is 60 %. No regional wall motion abnormalities noted. Right Ventricle Normal RV size. Normal systolic function. Atria Normal left atrium. Normal right atrium. Mitral Valve Normal mitral valve. Tricuspid Valve Normal tricuspid valve. Aortic Valve Trisinus/trileaflet aortic valve. Pulmonic Valve Normal pulmonic valve. Great Vessels Normal aortic root. The pulmonary artery is normal size. Normal inferior vena cava. Pericardium/Pleural No pericardial effusion. MMode/2D Measurements Calculations LVIDd: 4.0 cm IVSd: 0.73 cm Ao root diam: 3.3 cm LVIDs: 2.8 cm LVPWd: 0.72 cm RVDd: 3.4 cm FS: 29.8 % LAV(MOD-bp): 64.0 ml LVAd ap4: 29.3 cm2 LVAd ap2: 30.1 cm2 LAV(MOD-bp) Indexed: 35.7 ml/m2 LVLd ap4: 8.4 cm LVLd ap2: 8.1 cm LAV(MOD-sp2): 62.3 ml EDV(MOD-sp4): 84.2 ml EDV(MOD-sp2): 95.8 ml LAV(MOD-sp4): 62.1 ml EDV(sp4-el): 87.0 ml EDV(sp2-el): 95.4 ml LVAs ap4: 16.9 cm2 LVAs ap2: 17.5 cm2 LVLs ap4: 6.8 cm LVLs ap2: 6.6 cm ESV(MOD-sp4): 36.2 ml ESV(MOD-sp2): 39.4 ml ESV(sp4-el): 35.5 ml ESV(sp2-el): 39.3 ml EF(MOD-sp4): 57.0 % EF(MOD-sp2): 58.9 % EF(sp4-el): 59.3 % SV(MOD-sp4): 48.0 ml SV(MOD-sp2): 56.4 ml SV(sp4-el): 51.6 ml LA dimension(2D): 4.2 cm LA A4 area: 20.6 cm2 RA A4 area: 14.4 cm2 ECHO/ONC Echo Limited w/Contrast Interpretation Summary Normal LV size. Left ventricular systolic function is normal. The left ventricular ejection fraction is 60 %. Structurally normal valves. The global longitudinal strain is normal. The global longitudinal strain = -19.1 % (normal). Ordering Physician: Rip Rivers Referring Physician: Williams Farrell Performed By: Ely Guerrero RDCS, RVT 01/12/24 1027 Date Mayco Galeano MD CC: Dr. Williams Farrell, DO; Dr. Rip Rivers DO Date Dictated: 01/12/24701 Date Transcribed: 01/12/241021 Black Off Worker: Signed Normal [facility] CBC W Auto Differential pane l (Bld)on 01-04-2024 Basophils (Bld) [#/Vol] [facility] Basophils/100 WBC (Bld) 0.2 % [facility] Differential cell count method Nom (Bld) Auto [facility] Eosinophils (Bld) [#/Vol] 0.45 10*3/uL [facility] Eosinophils/100 WBC (Bld) 10.4 % [facility] Erythrocyte distribution width (RBC) [Ratio] 20.5 % High 11.5 - 15.0 % [facility] Hematocrit (Bld) [Volume fraction] 33.2 % Low 36.0 - 46.0 % [facility] Hemoglobin (Bld) [Mass/Vol] 11.3 g/dL Low 11.5 - 15.5 g/dL [facility] Immature granulocytes (Bld) [#/Vol] [facility] Immature granulocytes/100 WBC (Bld) 0.5 % [facility] Interpretation and review of laboratory results Abnormal [facility] Lymphocytes (Bld) [#/Vol] 0.78 10*3/uL Low [facility] Lymphocytes/100 WBC (Bld) 18.0 % [facility] MCH (RBC) [Entitic mass] 35.2 pg High 26.0 - 34.0 pg [facility] MCHC (RBC) [Mass/Vol] 34.0 g/dL 30.5 - 36.0 g/dL [facility] MCV (RBC) [Entitic vol] 103.4 fL High 80.0 - 100.0 fL [facility] Monocytes (Bld) [#/Vol] 0.55 10*3/uL [facility] Monocytes/100 WBC (Bld) 12.7 % [facility] Neutrophils (Bld) [#/Vol] 2.52 10*3/uL [facility] Neutrophils/100 WBC (Bld) 58.2 % [facility] Nucleated RBC (Bld) [#/Vol] NINF [facility] Nucleated RBC/100 WBC (Bld) [Ratio] 0.0 % /100 WBC [facility] Platelet mean volume (Bld) [Entitic vol] 9.1 fL 9.0 - 12.7 fL [facility] Platelets (Bld) [#/Vol] 149 10*3/uL Low [facility] RBC (Bld) [#/Vol] 3.21 10*6/uL Low 3.90 - 5.2 0 m/uL [facility] WBC (Bld) [#/Vol] 4.33 10*3/uL [facility] CT Chest WO contraston 01-03 IMPRESSION: Stable right middle lobe nodule. No new nodules seen. Interval worsening of patchy nodular opacities in the right upper lobe. Stable bandlike densities in the left upper lobe. No progressive thoracic lymphadenopathy. Hiatal hernia. Sclerotic lesion in the manubrium unchanged. Black Off Worker: [employer] Transcribe Date/Time: Jan 04 2024 4:32P Dictated by : NE PISANO MD This examination was interpreted and the report reviewed and electronically signed by: NE PISANO MD on Jan 04 2024 4:41PM [facility] DIVISION OF RADIOLOGY * * *Final Report* * * DATE OF EXAM: Jan 04 2024 4:04PM [facility] 0541 - CT CHEST WO IVCON / PROCEDURE REASON: multiple diagnoses * * * * Physician Interpretation * * * * EXAMINATION: CHEST CT WITHOUT CONTRAST CLINICAL HISTORY: Drug induced pneumonitis Technique: Spiral CT acquisition of the chest from the thoracic inlet to the upper abdomen without contrast. This study was performed following HRCT protocol. MQ: CTCWO_6 CT Radiation dose: Integrated Dose-length product (DLP) for this visit = 203 mGy*cm CT Dose Reduction Employed: Automated exposure control(AEC) and iterative recon Comparison: CT chest on 12/22/2023 RESULT: Limitations: None. Lines, tubes, and devices: No change in imaging of left chest port catheter. Lung parenchyma and airways: The central airways are patent. Noted is interval worsening of patchy nodular opacities in the right upper lobe. Bandlike densities are noted in the left upper lobe, unchanged. There is a 1.3 x 1 cm nodule in the right middle lobe, grossly unchanged. No definite new nodules seen. There are atelectases in the right middle lobe, lingula and bilateral lower lobes, similar to prior study. No evidence of interstitial lung disease. Pleural space: No pleural effusion or pneumothorax. No pleural thickening. Lower neck, lymph nodes, and mediastinum: The imaged thyroid gland is normal. No lymphadenopathy in the supraclavicular, axillary, mediastinal, or hilar regions, although a few subcentimeter in short axis mediastinal lymph nodes are noted.. Heart, pericardium, and thoracic vessels: Stable cardiac chambers, thoracic aorta and central pulmonary arteries. No pleural effusion/thickening. A medium-sized hiatal hernia is visualized, similar to prior study. Bones and soft tissues: Sclerotic lesion seen in the manubrium, stable in appearance. The spine shows S shaped deformity and degenerative changes. Status post right mastectomy. Upper abdomen: Limited study through the upper abdomen demonstrates no interval changes. Localizer images: No additional findings. DIVISION OF RADIOLOGY Provider, [facility] - 01/04/2024 * * *Final Report* * * DATE OF EXAM: Jan 04 2024 4:04PM [facility] 0541 - CT CHEST WO IVCON / PROCEDURE REASON: multiple diagnoses * * * * Physician Interpretation * * * * EXAMINATION: CHEST CT WITHOUT CONTRAST CLINICAL HISTORY: Drug induced pneumonitis Technique: Spiral CT acquisition of the chest from the thoracic inlet to the upper abdomen without contrast. This study was performed following HRCT protocol. MQ: CTCWO_6 CT Radiation dose: Integrated Dose-length product (DLP) for this visit = 203 mGy*cm CT Dose Reduction Employed: Automated exposure control(AEC) and iterative recon Comparison: CT chest on 12/22/2023 RESULT: Limitations: None. Lines, tubes, and devices: No change in imaging of left chest port catheter. Lung parenchyma and airways: The central airways are patent. Noted is interval worsening of patchy nodular opacities in the right upper lobe. Bandlike densities are noted in the left upper lobe, unchanged. There is a 1.3 x 1 cm nodule in the right middle lobe, grossly unchanged. No definite new nodules seen. There are atelectases in the right middle lobe, lingula and bilateral lower lobes, similar to prior study. No evidence of interstitial lung disease. Pleural space: No pleural effusion or pneumothorax. No pleural thickening. Lower neck, lymph nodes, and mediastinum: The imaged thyroid gland is normal. No lymphadenopathy in the supraclavicular, axillary, mediastinal, or hilar regions, although a few subcentimeter in short axis mediastinal lymph nodes are noted.. Heart, pericardium, and thoracic vessels: Stable cardiac chambers, thoracic aorta and central pulmonary arteries. No pleural effusion/thickening. A medium-sized hiatal hernia is visualized, similar to prior study. Bones and soft tissues: Sclerotic lesion seen in the manubrium, stable in appearance. The spine shows S shaped deformity and degenerative changes. Status post right mastectomy. Upper abdomen: Limited study through the upper abdomen demonstrates no interval changes. Localizer images: No additional findings. IMPRESSION IMPRESSION: Stable right middle lobe nodule. No new nodules seen. Interval worsening of patchy nodular opacities in the right upper lobe. Stable bandlike densities in the left upper lobe. No progressive thoracic lymphadenopathy. Hiatal hernia. Sclerotic lesion in the manubrium unchanged. Black Off Worker: [employer] Transcribe Date/Time: Jan 04 2024 4:32P Dictated by : NE PISANO MD This examination was interpreted and the report reviewed and electronically signed by: NE PSIANO MD on Jan 04 2024 4:41PM EST [facility] Radiology Study observation (narrative) [facility] CT Chest WO contrastOrdered By: [facility] Provider on 01-04-2024 [facility] Comprehensive metabolic 2000 panelOrdered By: Sasha Velasco on 01-04-2024 Albumin [Mass/Vol] 4.0 g/dL 3.9 - 4.9 g/dL [facility] ALP [Catalytic activity/Vol] 121 U/L 34 - 123 U/L [facility] ALT [Catalytic activity/Vol] 44 U/L High 7 - 38 U/L [facility] Anion gap [Moles/Vol] 9 mmol/L 8 - 15 mmol/L [facility] AST [Catalytic activity/Vol] 47 U/L High 13 - 35 U/L [facility] Bilirubin [Mass/Vol] 1.0 mg/dL 0.2 - 1 .3 mg/dL [facility] Calcium [Mass/Vol] 9.1 mg/dL 8.5 - 10. 2 mg/dL [facility] Chloride [Moles/Vol] 105 mmol/L 98 - 10 7 mmol/L [facility] CO2 [Moles/Vol] 24 mmol/L 22 - 30 mmol/L [facility] Creatinine [Mass/Vol] 1.34 mg/dL High 0.58 - 0.96 mg/dL [facility] GFR/1.73 sq M.predicted among non-blacks MDRD (S/P/Bld) [Vol rate/Area] 43 mL/min/{1.73_m2} Low - PINF [facility] Comment on above: Estimated Glomerular Filtration Rate (eGFR) is calculated using the 2020 CKD-EPI creatinine equation. This equation utilizes serum creatinine, sex, and age as parameters. The creatinine assay has traceable calibration to isotope dilution-mass spectrometry. Refer to KDIGO guidelines for clinical interpretation. In patients with unstable renal function, e.g. those with acute kidney injury, the eGFR may not accurately reflect actual GFR. Glucose [Mass/Vol] 138 mg/dL High 74 - 99 mg/dL [facility] Comment on above: The [place] [employer] (ADA) provides guidance for cutoff values for fasting glucose and random glucose. The ADA defines fasting as no caloric intake for at least 8 hours. Fasting plasma glucose results between 100 to 125 mg/dL indicate increased risk for diabetes (prediabetes). Fasting plasma glucose results greater than or equal to 126 mg/dL meet the criteria for diagnosis of diabetes. In the absence of unequivocal hyperglycemia, results should be confirmed by repeat testing. In a patient with classic symptoms of hyperglycemia or hyperglycemic crisis, random plasma glucose results greater than or equal to 200 mg/dL meet the criteria for diagnosis of diabetes. Reference: Standards of Medical Care in Diabetes 2016, [place] [employer]. Diabetes Care. 2016.39(Suppl 1). Interpretation and review of laboratory results Abnormal [facility] Potassium [Moles/Vol] 3.7 mmol/L 3.7 - 5.1 mmol/L [facility] Protein [Mass/Vol] 5.7 g/dL Low 6.3 - 8.0 g/dL [facility] Sodium [Moles/Vol] 138 mmol/L 136 - 144 mmol/L [facility] Urea nitrogen [Mass/Vol] 14 mg/dL 7 - 21 mg/dL [facility] ONC Echo Completeon 12-19-19 24 ONC Echo Complete [facility] [address] [place] [address] ONC Echo Complete 12/19/23 0859 MR#: [id number] Acct: [id number] Name: RENATE CHRISTIANSEN Rep #: [id number] : 1955 68 From: Mayco Galeano MD Attending Dr: Dr. Rip Rivers, DO Status: REG CL I Ordering Dr: Rip Rivers DO Date: 12/19/23 Location: [facility] Sex: F C Admitted: Reason For Study: CHEMOTHERAPY Procedure This was a 2D Doppler, Color Flow transthoracic echocardiogram. Myocardial strain analysis was performed in this exam to aid in the assessment of cardiac function. Exam performed in department. Left Ventricle Normal LV size. Left ventricular systolic function is normal. The left ventricular ejection fraction is 60 %. Stage 1 diastolic dysfunction. No regional wall motion abnormalities noted. Right Ventricle Normal RV size. Normal systolic function. Atria Normal left atrium. Normal right atrium. Mitral Valve Normal mitral valve. Tricuspid Valve Normal tricuspid valve. Mild (1+) tricuspid valve insufficiency. Pulmonary artery systolic pressure is 29 mmHg. Aortic Valve Trisinus/trileaflet aortic valve. Pulmonic Valve Normal pulmonic valve. Great Vessels Normal aortic root. The pulmonary artery is normal size. Normal inferior vena cava. Pericardium/Pleural No pericardial effusion. MMode/2D Measurements Calculations LVIDd: 4.1 cm IVSd: 0.83 cm LVOT diam: 2.0 cm LVIDs: 3.2 cm LVPWd: 0.89 cm LVOT area: 3.2 cm2 RVDd: 3.3 cm FS: 22.5 % Ao root diam: 3.5 cm LAV(MOD-bp): 46.0 ml LVAd ap4: 28.8 cm2 LAV(MOD-bp) Indexed: 25.1 ml/m2 LVLd ap4: 8.0 cm LAV(MOD-sp2): 29.5 ml EDV(MOD-sp4): 86.6 ml LAV(MOD-sp4): 49.1 ml EDV(sp4-el): 88.4 ml LVAs ap4: 17.3 cm2 LVLs ap4: 6.8 cm ESV(MOD-sp4): 37.6 ml ESV(sp4-el): 37.5 ml EF(MOD-sp4): 56.6 % EF(sp4-el): 57.6 % SV(MOD-sp4): 49.0 ml SV(sp4-el): 50.9 ml LA A4 area: 19.7 cm2 LA dimension(2D): 4.0 cm RA A4 area: 8.9 cm2 TAPSE: 1.3 cm Time Measurements MV dec time: 0.29 sec Doppler Measurements Calculations MV E max johnathan: 73.0 cm/sec Lat Peak E' Johnathan: 8.5 cm/sec Med Peak E' Johnathan: 4.3 cm/sec MV A max johnathan: 102.3 cm/sec E/E' lat: 8.5 E/E' med: 17.1 MV E/A: 0.71 MV V2 max: 97.7 cm/sec Ao V2 max: 136.1 cm/sec MV max P.8 mmHg MV dec slope: 260.7 cm/sec2 Ao max P.4 mmHg MV V2 mean: 64.5 cm/sec Ao V2 mean: 93.0 cm/sec MV mean P.9 mmHg Ao mean P.0 mmHg MV V2 VTI: 33.4 cm Ao V2 VTI: 29.4 cm AV (velocity ratio): 0.81 MVA(VTI): 2.3 cm2 PARVIN(I,D): 2.6 cm2 PARVIN(V,D): 2.6 cm2 LV V1 max: 108.9 cm/sec SV(LVOT): 75.9 ml PA V2 max: 107.0 cm/sec LV V1 max P.7 mmHg PA V2 mean: 71.0 cm/sec LV V1 mean P.8 mmHg LV V1 mean: 79.0 cm/sec LV V1 VTI: 23.7 cm TR max johnathan: 253.2 cm/sec TR max P.7 mmHg ECHO/ONC Echo Complete Interpretation Summary Normal LV size. Left ventricular systolic function is normal. The left ventricular ejection fraction is 60 %. Stage 1 diastolic dysfunction. The global longitudinal strain is normal. The global longitudinal strain = -20.3 % (normal). Ordering Physician: Rip Rivers Referring Physician: Rip Rivers Performed By: Amber Lou RCS 12/20/23909 Date Mayco Galeano MD CC: Dr. Williams Farrell DO; Dr. Rip Rivers DO Date Dictated: 12/19/2359 Date Transcribed: 12/20/23909 Black Off Worker: Signed Normal [facility] Laboratory - Chemistry and C hemistry - challengeOrdered By: Sasha Velasco on 12-15-2023 Creatinine [Mass/Vol] 1.60 mg/dL High 0.58 - 0.96 mg/dL [facility] GFR/1.73 sq M.predicted among non-blacks MDRD (S/P/Bld) [Vol rate/Area] 35 mL/min/{1.73_m2} Low - PINF [facility] Comment on above: Estimated Glomerular Filtration Rate (eGFR) is calculated using the 2020 CKD-EPI creatinine equation. This equation utilizes serum creatinine, sex, and age as parameters. The creatinine assay has traceable calibration to isotope dilution-mass spectrometry. Refer to KDIGO guidelines for clinical interpretation. In patients with unstable renal function, e.g. those with acute kidney injury, the eGFR may not accurately reflect actual GFR. No Panel InformationOrdered By: Sasha Velasco on 12-15-2023 Interpretation and review of laboratory results Abnormal [facility] CBC W Auto Differential pane l (Bld)on 12-14-2023 Basophils (Bld) [#/Vol] 0.03 10*3/uL NINF [facility] Basophils/100 WBC (Bld) 0.6 % [facility] Differential cell count method Nom (Bld) Auto [facility] Eosinophils (Bld) [#/Vol] 0.56 10*3/uL High [facility] Eosinophils/100 WBC (Bld) 11.6 % [facility] Erythrocyte distribution width (RBC) [Ratio] 17.0 % High 11.5 - 15.0 % [facility] Hematocrit (Bld) [Volume fraction] 35.8 % Low 36.0 - 46.0 % [facility] Hemoglobin (Bld) [Mass/Vol] 12.0 g/dL 11.5 - 15.5 g/dL [facility] Immature granulocytes (Bld) [#/Vol] [facility] Immature granulocytes/100 WBC (Bld) 0.4 % [facility] Interpretation and review of laboratory results Abnormal [facility] Lymphocytes (Bld) [#/Vol] 0.75 10*3/uL Low [facility] Lymphocytes/100 WBC (Bld) 15.6 % [facility] MCH (RBC) [Entitic mass] 34.3 pg High 26.0 - 34.0 pg [facility] MCHC (RBC) [Mass/Vol] 33.5 g/dL 30.5 - 36.0 g/dL [facility] MCV (RBC) [Entitic vol] 102.3 fL High 80.0 - 100.0 fL [facility] Monocytes (Bld) [#/Vol] 0.57 10*3/uL [facility] Monocytes/100 WBC (Bld) 11.8 % [facility] Neutrophils (Bld) [#/Vol] 2.89 10*3/uL [facility] Neutrophils/100 WBC (Bld) 60.0 % [facility] Nucleated RBC (Bld) [#/Vol] [facility] Nucleated RBC/100 WBC (Bld) [Ratio] 0.0 % /100 WBC [facility] Platelet mean volume (Bld) [Entitic vol] 9.3 fL 9.0 - 12.7 fL [facility] Platelets (Bld) [#/Vol] 158 10*3/uL [facility] RBC (Bld) [#/Vol] 3.50 10*6/uL Low 3.90 - 5.2 0 m/uL [facility] WBC (Bld) [#/Vol] 4.82 10*3/uL [facility] Comprehensive metabolic 2000 panelOrdered By: Evette Landry on 12-14-2023 Albumin [Mass/Vol] 3.8 g/dL Low 3.9 - 4.9 g/dL [facility] ALP [Catalytic activity/Vol] 130 U/L High 34 - 123 U/L [facility] ALT [Catalytic activity/Vol] 24 U/L 7 - 38 U/L [facility] Anion gap [Moles/Vol] 8 mmol/L 8 - 15 mmol/L [facility] AST [Catalytic activity/Vol] 34 U/L 13 - 35 U/L [facility] Bilirubin [Mass/Vol] 0.7 mg/dL 0.2 - 1 .3 mg/dL [facility] Calcium [Mass/Vol] 9.0 mg/dL 8.5 - 10. 2 mg/dL [facility] Chloride [Moles/Vol] 108 mmol/L High 98 - 10 7 mmol/L [facility] CO2 [Moles/Vol] 25 mmol/L 22 - 30 mmol/L [facility] Creatinine [Mass/Vol] 1.77 mg/dL High 0.58 - 0.96 mg/dL [facility] GFR/1.73 sq M.predicted among non-blacks MDRD (S/P/Bld) [Vol rate/Area] 31 mL/min/{1.73_m2} Low - PINF [facility] Comment on above: Estimated Glomerular Filtration Rate (eGFR) is calculated using the 2020 CKD-EPI creatinine equation. This equation utilizes serum creatinine, sex, and age as parameters. The creatinine assay has traceable calibration to isotope dilution-mass spectrometry. Refer to KDIGO guidelines for clinical interpretation. In patients with unstable renal function, e.g. those with acute kidney injury, the eGFR may not accurately reflect actual GFR. Glucose [Mass/Vol] 112 mg/dL High 74 - 99 mg/dL [facility] Comment on above: The [place] [employer] (ADA) provides guidance for cutoff values for fasting glucose and random glucose. The ADA defines fasting as no caloric intake for at least 8 hours. Fasting plasma glucose results between 100 to 125 mg/dL indicate increased risk for diabetes (prediabetes). Fasting plasma glucose results greater than or equal to 126 mg/dL meet the criteria for diagnosis of diabetes. In the absence of unequivocal hyperglycemia, results should be confirmed by repeat testing. In a patient with classic symptoms of hyperglycemia or hyperglycemic crisis, random plasma glucose results greater than or equal to 200 mg/dL meet the criteria for diagnosis of diabetes. Reference: Standards of Medical Care in Diabetes 2016, [place] [employer]. Diabetes Care. 2016.39(Suppl 1). Interpretation and review of laboratory results Abnormal [facility] Potassium [Moles/Vol] 3.9 mmol/L 3.7 - 5.1 mmol/L [facility] Protein [Mass/Vol] 5.6 g/dL Low 6.3 - 8.0 g/dL [facility] Sodium [Moles/Vol] 141 mmol/L 136 - 144 mmol/L [facility] Urea nitrogen [Mass/Vol] 17 mg/dL 7 - 21 mg/dL [facility] CBC W Auto Differential pane l (Bld)on 11-23-2023 Basophils (Bld) [#/Vol] [facility] Basophils/100 WBC (Bld) 0.3 % [facility] Differential cell count method Nom (Bld) Auto [facility] Eosinophils (Bld) [#/Vol] 0.35 10*3/uL [facility] Eosinophils/100 WBC (Bld) 10.0 % [facility] Erythrocyte distribution width (RBC) [Ratio] 13.6 % 11.5 - 15.0 % [facility] Hematocrit (Bld) [Volume fraction] 36.2 % 36.0 - 46.0 % [facility] Hemoglobin (Bld) [Mass/Vol] 12.2 g/dL 11.5 - 15.5 g/dL [facility] Immature granulocytes (Bld) [#/Vol] [facility] Immature granulocytes/100 WBC (Bld) 0.3 % [facility] Interpretation and review of laboratory results Abnormal [facility] Lymphocytes (Bld) [#/Vol] 0.86 10*3/uL Low [facility] Lymphocytes/100 WBC (Bld) 24.5 % [facility] MCH (RBC) [Entitic mass] 34.4 pg High 26.0 - 34.0 pg [facility] MCHC (RBC) [Mass/Vol] 33.7 g/dL 30.5 - 36.0 g/dL [facility] MCV (RBC) [Entitic vol] 102.0 fL High 80.0 - 100.0 fL [facility] Monocytes (Bld) [#/Vol] 0.36 10*3/uL [facility] Monocytes/100 WBC (Bld) 10.3 % [facility] Neutrophils (Bld) [#/Vol] 1.92 10*3/uL [facility] Neutrophils/100 WBC (Bld) 54.6 % [facility] Nucleated RBC (Bld) [#/Vol] NINF [facility] Nucleated RBC/100 WBC (Bld) [Ratio] 0.0 % /100 WBC [facility] Platelet mean volume (Bld) [Entitic vol] 9.2 fL 9.0 - 12.7 fL [facility] Platelets (Bld) [#/Vol] 133 10*3/uL Low [facility] RBC (Bld) [#/Vol] 3.55 10*6/uL Low 3.90 - 5.2 0 m/uL [facility] WBC (Bld) [#/Vol] 3.51 10*3/uL Low [facility] Comprehensive metabolic 2000 panelOrdered By: Sasha Velasco on 11-23-2023 Albumin [Mass/Vol] 3.6 g/dL Low 3.9 - 4.9 g/dL [facility] ALP [Catalytic activity/Vol] 148 U/L High 34 - 123 U/L [facility] ALT [Catalytic activity/Vol] 15 U/L 7 - 38 U/L [facility] Anion gap [Moles/Vol] 9 mmol/L 8 - 15 mmol/L [facility] AST [Catalytic activity/Vol] 30 U/L 13 - 35 U/L [facility] Bilirubin [Mass/Vol] 0.3 mg/dL 0.2 - 1 .3 mg/dL [facility] Calcium [Mass/Vol] 8.7 mg/dL 8.5 - 10. 2 mg/dL [facility] Chloride [Moles/Vol] 108 mmol/L High 98 - 10 7 mmol/L [facility] CO2 [Moles/Vol] 25 mmol/L 22 - 30 mmol/L [facility] Creatinine [Mass/Vol] 1.12 mg/dL High 0.58 - 0.96 mg/dL [facility] GFR/1.73 sq M.predicted among non-blacks MDRD (S/P/Bld) [Vol rate/Area] 53 mL/min/{1.73_m2} Low - PINF [facility] Comment on above: Estimated Glomerular Filtration Rate (eGFR) is calculated using the 2020 CKD-EPI creatinine equation. This equation utilizes serum creatinine, sex, and age as parameters. The creatinine assay has traceable calibration to isotope dilution-mass spectrometry. Refer to KDIGO guidelines for clinical interpretation. In patients with unstable renal function, e.g. those with acute kidney injury, the eGFR may not accurately reflect actual GFR. Glucose [Mass/Vol] 131 mg/dL High 74 - 99 mg/dL [facility] Comment on above: The [place] [employer] (ADA) provides guidance for cutoff values for fasting glucose and random glucose. The ADA defines fasting as no caloric intake for at least 8 hours. Fasting plasma glucose results between 100 to 125 mg/dL indicate increased risk for diabetes (prediabetes). Fasting plasma glucose results greater than or equal to 126 mg/dL meet the criteria for diagnosis of diabetes. In the absence of unequivocal hyperglycemia, results should be confirmed by repeat testing. In a patient with classic symptoms of hyperglycemia or hyperglycemic crisis, random plasma glucose results greater than or equal to 200 mg/dL meet the criteria for diagnosis of diabetes. Reference: Standards of Medical Care in Diabetes 2016, [place] [employer]. Diabetes Care. 2016.39(Suppl 1). Interpretation and review of laboratory results Abnormal [facility] Potassium [Moles/Vol] 4.1 mmol/L 3.7 - 5.1 mmol/L [facility] Protein [Mass/Vol] 5.7 g/dL Low 6.3 - 8.0 g/dL [facility] Sodium [Moles/Vol] 142 mmol/L 136 - 144 mmol/L [facility] Urea nitrogen [Mass/Vol] 10 mg/dL 7 - 21 mg/dL [facility] CBC W Auto Differential pane l (Bld)on 11-11-2023 Basophils (Bld) [#/Vol] NINF [facility] Basophils/100 WBC (Bld) 0.3 % [facility] Differential cell count method Nom (Bld) Auto [facility] Eosinophils (Bld) [#/Vol] 0.24 10*3/uL NINF [facility] Eosinophils/100 WBC (Bld) 6.7 % [facility] Erythrocyte distribution width (RBC) [Ratio] 13.0 % 11.5 - 15.0 % [facility] Hematocrit (Bld) [Volume fraction] 40.5 % 36.0 - 46.0 % [facility] Hemoglobin (Bld) [Mass/Vol] 13.5 g/dL 11.5 - 15.5 g/dL [facility] Immature granulocytes (Bld) [#/Vol] [facility] Immature granulocytes/100 WBC (Bld) 0.0 % [facility] Interpretation and review of laboratory results Abnormal [facility] Lymphocytes (Bld) [#/Vol] 0.87 10*3/uL Low [facility] Lymphocytes/100 WBC (Bld) 24.4 % [facility] MCH (RBC) [Entitic mass] 33.8 pg 26.0 - 34.0 pg [facility] MCHC (RBC) [Mass/Vol] 33.3 g/dL 30.5 - 36.0 g/dL [facility] MCV (RBC) [Entitic vol] 101.3 fL High 80.0 - 100.0 fL [facility] Monocytes (Bld) [#/Vol] 0.38 10*3/uL [facility] Monocytes/100 WBC (Bld) 10.6 % [facility] Neutrophils (Bld) [#/Vol] 2.07 10*3/uL [facility] Neutrophils/100 WBC (Bld) 58.0 % [facility] Nucleated RBC (Bld) [#/Vol] [facility] Nucleated RBC/100 WBC (Bld) [Ratio] 0.0 % /100 WBC [facility] Platelet mean volume (Bld) [Entitic vol] 10.1 fL 9.0 - 12.7 fL [facility] Platelets (Bld) [#/Vol] 139 10*3/uL Low [facility] RBC (Bld) [#/Vol] 4.00 10*6/uL 3.90 - 5.2 0 m/uL [facility] WBC (Bld) [#/Vol] 3.57 10*3/uL Low [facility] CBC W Auto Differential pane l (Bld)on 11-02-2023 Basophils (Bld) [#/Vol] [facility] Basophils/100 WBC (Bld) 0.6 % [facility] Differential cell count method Nom (Bld) Auto [facility] Eosinophils (Bld) [#/Vol] 0.20 10*3/uL [facility] Eosinophils/100 WBC (Bld) 5.9 % [facility] Erythrocyte distribution width (RBC) [Ratio] 13.2 % 11.5 - 15.0 % [facility] Hematocrit (Bld) [Volume fraction] 41.6 % 36.0 - 46.0 % [facility] Hemoglobin (Bld) [Mass/Vol] 13.7 g/dL 11.5 - 15.5 g/dL [facility] Immature granulocytes (Bld) [#/Vol] NINF [facility] Immature granulocytes/100 WBC (Bld) 0.0 % [facility] Interpretation and review of laboratory results Abnormal [facility] Lymphocytes (Bld) [#/Vol] 0.75 10*3/uL Low [facility] Lymphocytes/100 WBC (Bld) 22.0 % [facility] MCH (RBC) [Entitic mass] 33.7 pg 26.0 - 34.0 pg [facility] MCHC (RBC) [Mass/Vol] 32.9 g/dL 30.5 - 36.0 g/dL [facility] MCV (RBC) [Entitic vol] 102.5 fL High 80.0 - 100.0 fL [facility] Monocytes (Bld) [#/Vol] 0.39 10*3/uL NINF [facility] Monocytes/100 WBC (Bld) 11.4 % [facility] Neutrophils (Bld) [#/Vol] 2.05 10*3/uL [facility] Neutrophils/100 WBC (Bld) 60.1 % [facility] Nucleated RBC (Bld) [#/Vol] NINF [facility] Nucleated RBC/100 WBC (Bld) [Ratio] 0.0 % /100 WBC [facility] Platelet mean volume (Bld) [Entitic vol] 10.4 fL 9.0 - 12.7 fL [facility] Platelets (Bld) [#/Vol] 106 10*3/uL Low [facility] RBC (Bld) [#/Vol] 4.06 10*6/uL 3.90 - 5.2 0 m/uL [facility] WBC (Bld) [#/Vol] 3.41 10*3/uL Low [facility] Comprehensive metabolic 2000 panelOrdered By: Sasha Velasco on 11-02-2023 Albumin [Mass/Vol] 3.7 g/dL Low 3.9 - 4.9 g/dL [facility] ALP [Catalytic activity/Vol] 179 U/L High 34 - 123 U/L [facility] ALT [Catalytic activity/Vol] 23 U/L 7 - 38 U/L [facility] Anion gap [Moles/Vol] 7 mmol/L Low 9 - 18 mmol/L [facility] AST [Catalytic activity/Vol] 40 U/L High 13 - 35 U/L [facility] Bilirubin [Mass/Vol] 0.5 mg/dL 0.2 - 1 .3 mg/dL [facility] Calcium [Mass/Vol] 9.4 mg/dL 8.5 - 10. 2 mg/dL [facility] Chloride [Moles/Vol] 108 mmol/L High 97 - 10 5 mmol/L [facility] CO2 [Moles/Vol] 27 mmol/L 22 - 30 mmol/L [facility] Creatinine [Mass/Vol] 0.92 mg/dL 0.58 - 0.96 mg/dL [facility] GFR/1.73 sq M.predicted among non-blacks MDRD (S/P/Bld) [Vol rate/Area] 67 mL/min/{1.73_m2} - PINF [facility] Comment on above: Estimated Glomerular Filtration Rate (eGFR) is calculated using the 2020 CKD-EPI creatinine equation. This equation utilizes serum creatinine, sex, and age as parameters. The creatinine assay has traceable calibration to isotope dilution-mass spectrometry. Refer to KDIGO guidelines for clinical interpretation. In patients with unstable renal function, e.g. those with acute kidney injury, the eGFR may not accurately reflect actual GFR. Glucose [Mass/Vol] 130 mg/dL High 74 - 99 mg/dL [facility] Comment on above: The [place] [employer] (ADA) provides guidance for cutoff values for fasting glucose and random glucose. The ADA defines fasting as no caloric intake for at least 8 hours. Fasting plasma glucose results between 100 to 125 mg/dL indicate increased risk for diabetes (prediabetes). Fasting plasma glucose results greater than or equal to 126 mg/dL meet the criteria for diagnosis of diabetes. In the absence of unequivocal hyperglycemia, results should be confirmed by repeat testing. In a patient with classic symptoms of hyperglycemia or hyperglycemic crisis, random plasma glucose results greater than or equal to 200 mg/dL meet the criteria for diagnosis of diabetes. Reference: Standards of Medical Care in Diabetes 2016, [place] [employer]. Diabetes Care. 2016.39(Suppl 1). Interpretation and review of laboratory results Abnormal [facility] Potassium [Moles/Vol] 3.5 mmol/L Low 3.7 - 5.1 mmol/L [facility] Protein [Mass/Vol] 5.9 g/dL Low 6.3 - 8.0 g/dL [facility] Sodium [Moles/Vol] 142 mmol/L 136 - 144 mmol/L [facility] Urea nitrogen [Mass/Vol] 15 mg/dL 7 - 21 mg/dL [facility] CBC W Auto Differential pane l (Bld)on 10-11-2023 Basophils (Bld) [#/Vol] [facility] Basophils/100 WBC (Bld) 0.4 % [facility] Differential cell count method Nom (Bld) Auto [facility] Eosinophils (Bld) [#/Vol] 0.14 10*3/uL [facility] Eosinophils/100 WBC (Bld) 4.9 % [facility] Erythrocyte distribution width (RBC) [Ratio] 13.5 % 11.5 - 15.0 % [facility] Hematocrit (Bld) [Volume fraction] 39.7 % 36.0 - 46.0 % [facility] Hemoglobin (Bld) [Mass/Vol] 13.1 g/dL 11.5 - 15.5 g/dL [facility] Immature granulocytes (Bld) [#/Vol] [facility] Immature granulocytes/100 WBC (Bld) 0.4 % [facility] Interpretation and review of laboratory results Abnormal [facility] Lymphocytes (Bld) [#/Vol] 0.45 10*3/uL Low [facility] Lymphocytes/100 WBC (Bld) 15.8 % [facility] MCH (RBC) [Entitic mass] 34.0 pg 26.0 - 34.0 pg [facility] MCHC (RBC) [Mass/Vol] 33.0 g/dL 30.5 - 36.0 g/dL [facility] MCV (RBC) [Entitic vol] 103.1 fL High 80.0 - 100.0 fL [facility] Monocytes (Bld) [#/Vol] 0.38 10*3/uL [facility] Monocytes/100 WBC (Bld) 13.3 % [facility] Neutrophils (Bld) [#/Vol] 1.86 10*3/uL [facility] Neutrophils/100 WBC (Bld) 65.2 % [facility] Nucleated RBC (Bld) [#/Vol] NINF [facility] Nucleated RBC/100 WBC (Bld) [Ratio] 0.0 % /100 WBC [facility] Platelet mean volume (Bld) [Entitic vol] 10.2 fL 9.0 - 12.7 fL [facility] Platelets (Bld) [#/Vol] 79 10*3/uL Low [facility] Comment on above: No clot detected. RBC (Bld) [#/Vol] 3.85 10*6/uL Low 3.90 - 5.2 0 m/uL [facility] WBC (Bld) [#/Vol] 2.85 10*3/uL Low [facility] Comprehensive metabolic 2000 panelOrdered By: Sasha Velasco on 10-11-2023 Albumin [Mass/Vol] 3.5 g/dL Low 3.9 - 4.9 g/dL [facility] ALP [Catalytic activity/Vol] 167 U/L High 34 - 123 U/L [facility] ALT [Catalytic activity/Vol] 25 U/L 7 - 38 U/L [facility] Anion gap [Moles/Vol] 4 mmol/L Low 9 - 18 mmol/L [facility] AST [Catalytic activity/Vol] 42 U/L High 13 - 35 U/L [facility] Bilirubin [Mass/Vol] 0.5 mg/dL 0.2 - 1 .3 mg/dL [facility] Calcium [Mass/Vol] 9.8 mg/dL 8.5 - 10. 2 mg/dL [facility] Chloride [Moles/Vol] 104 mmol/L 97 - 10 5 mmol/L [facility] CO2 [Moles/Vol] 31 mmol/L High 22 - 30 mmol/L [facility] Creatinine [Mass/Vol] 1.08 mg/dL High 0.58 - 0.96 mg/dL [facility] GFR/1.73 sq M.predicted among non-blacks MDRD (S/P/Bld) [Vol rate/Area] 55 mL/min/{1.73_m2} Low - PINF [facility] Comment on above: Estimated Glomerular Filtration Rate (eGFR) is calculated using the 2020 CKD-EPI creatinine equation. This equation utilizes serum creatinine, sex, and age as parameters. The creatinine assay has traceable calibration to isotope dilution-mass spectrometry. Refer to KDIGO guidelines for clinical interpretation. In patients with unstable renal function, e.g. those with acute kidney injury, the eGFR may not accurately reflect actual GFR. Glucose [Mass/Vol] 130 mg/dL High 74 - 99 mg/dL [facility] Comment on above: The [place] [employer] (ADA) provides guidance for cutoff values for fasting glucose and random glucose. The ADA defines fasting as no caloric intake for at least 8 hours. Fasting plasma glucose results between 100 to 125 mg/dL indicate increased risk for diabetes (prediabetes). Fasting plasma glucose results greater than or equal to 126 mg/dL meet the criteria for diagnosis of diabetes. In the absence of unequivocal hyperglycemia, results should be confirmed by repeat testing. In a patient with classic symptoms of hyperglycemia or hyperglycemic crisis, random plasma glucose results greater than or equal to 200 mg/dL meet the criteria for diagnosis of diabetes. Reference: Standards of Medical Care in Diabetes 2016, [place] [employer]. Diabetes Care. 2016.39(Suppl 1). Interpretation and review of laboratory results Abnormal [facility] Potassium [Moles/Vol] 3.6 mmol/L Low 3.7 - 5.1 mmol/L [facility] Protein [Mass/Vol] 5.7 g/dL Low 6.3 - 8.0 g/dL [facility] Sodium [Moles/Vol] 139 mmol/L 136 - 144 mmol/L [facility] Urea nitrogen [Mass/Vol] 13 mg/dL 7 - 21 mg/dL [facility] CBC W Auto Differential pane l (Bld)on 09-21-2023 Basophils (Bld) [#/Vol] 0.04 10*3/uL <0.11 k/uL [facility] Basophils/100 WBC (Bld) 0.9 % [facility] Differential cell count method Nom (Bld) Auto [facility] Eosinophils (Bld) [#/Vol] 0.35 10*3/uL <0.46 k/uL [facility] Eosinophils/100 WBC (Bld) 7.8 % [facility] Erythrocyte distribution width (RBC) [Ratio] 14.5 % 11.5 - 15.0 % [facility] Hematocrit (Bld) [Volume fraction] 40.8 % 36.0 - 46.0 % [facility] Hemoglobin (Bld) [Mass/Vol] 13.7 g/dL 11.5 - 15.5 g/dL [facility] Immature granulocytes (Bld) [#/Vol] <0.10 k/uL [facility] Immature granulocytes/100 WBC (Bld) 0.2 % [facility] Lymphocytes (Bld) [#/Vol] 1.15 10*3/uL 1.00 - 4.00 k/uL [facility] Lymphocytes/100 WBC (Bld) 25.7 % [facility] MCH (RBC) [Entitic mass] 34.9 pg High 26.0 - 34.0 pg [facility] MCHC (RBC) [Mass/Vol] 33.6 g/dL 30.5 - 36.0 g/dL [facility] MCV (RBC) [Entitic vol] 104.1 fL High 80.0 - 100.0 fL [facility] Monocytes (Bld) [#/Vol] 0.52 10*3/uL <0.87 k/uL [facility] Monocytes/100 WBC (Bld) 11.6 % [facility] Neutrophils (Bld) [#/Vol] 2.41 10*3/uL 1.45 - 7.50 k/uL [facility] Neutrophils/100 WBC (Bld) 53.8 % [facility] Nucleated RBC (Bld) [#/Vol] <0.01 k/uL [facility] Nucleated RBC/100 WBC (Bld) [Ratio] 0.0 /100 WBC [facility] Platelet mean volume (Bld) [Entitic vol] 9.8 fL 9.0 - 12.7 fL [facility] Platelets (Bld) [#/Vol] 156 10*3/uL 150 - 400 k/uL [facility] RBC (Bld) [#/Vol] 3.92 10*6/uL 3.90 - 5.2 0 m/uL [facility] WBC (Bld) [#/Vol] 4.48 10*3/uL 3.70 - 11. 00 k/uL [facility] Comprehensive metabolic 2000 panelon 09-21-2023 Albumin [Mass/Vol] 3.9 g/dL 3.9 - 4.9 g/dL [facility] ALP [Catalytic activity/Vol] 169 U/L High 34 - 123 U/L [facility] ALT [Catalytic activity/Vol] 18 U/L 7 - 38 U/L [facility] Anion gap [Moles/Vol] 5 mmol/L Low 9 - 18 mmol/L [facility] AST [Catalytic activity/Vol] 34 U/L 13 - 35 U/L [facility] Bilirubin [Mass/Vol] 0.6 mg/dL 0.2 - 1 .3 mg/dL [facility] Calcium [Mass/Vol] 10.5 mg/dL High 8.5 - 10. 2 mg/dL [facility] Chloride [Moles/Vol] 103 mmol/L 97 - 10 5 mmol/L [facility] CO2 [Moles/Vol] 31 mmol/L High 22 - 30 mmol/L [facility] Creatinine [Mass/Vol] 0.96 mg/dL 0.58 - 0.96 mg/dL [facility] Estimated Glomerular Filtration Rate 64 mL/min/1.73m >=60 mL/min/1.73m [facility] Glucose [Mass/Vol] 112 mg/dL High 74 - 99 mg/dL [facility] Potassium [Moles/Vol] 3.9 mmol/L 3.7 - 5.1 mmol/L [facility] Protein [Mass/Vol] 6.1 g/dL Low 6.3 - 8.0 g/dL [facility] Sodium [Moles/Vol] 139 mmol/L 136 - 144 mmol/L [facility] Urea nitrogen [Mass/Vol] 11 mg/dL 7 - 21 mg/dL [facility] CBC W Auto Differential pane l (Bld)on 08-30-2023 Basophils (Bld) [#/Vol] 0.03 10*3/uL <0.11 k/uL [facility] Basophils/100 WBC (Bld) 1.0 % [facility] Differential cell count method Nom (Bld) Auto [facility] Eosinophils (Bld) [#/Vol] 0.23 10*3/uL <0.46 k/uL [facility] Eosinophils/100 WBC (Bld) 7.8 % [facility] Erythrocyte distribution width (RBC) [Ratio] 15.0 % 11.5 - 15.0 % [facility] Hematocrit (Bld) [Volume fraction] 35.6 % Low 36.0 - 46.0 % [facility] Hemoglobin (Bld) [Mass/Vol] 12.2 g/dL 11.5 - 15.5 g/dL [facility] Immature granulocytes (Bld) [#/Vol] <0.10 k/uL [facility] Immature granulocytes/100 WBC (Bld) 0.0 % [facility] Lymphocytes (Bld) [#/Vol] 1.02 10*3/uL 1.00 - 4.00 k/uL [facility] Lymphocytes/100 WBC (Bld) 34.6 % [facility] MCH (RBC) [Entitic mass] 36.0 pg High 26.0 - 34.0 pg [facility] MCHC (RBC) [Mass/Vol] 34.3 g/dL 30.5 - 36.0 g/dL [facility] MCV (RBC) [Entitic vol] 105.0 fL High 80.0 - 100.0 fL [facility] Monocytes (Bld) [#/Vol] 0.42 10*3/uL <0.87 k/uL [facility] Monocytes/100 WBC (Bld) 14.2 % [facility] Neutrophils (Bld) [#/Vol] 1.25 10*3/uL Low 1.45 - 7.50 k/uL [facility] Neutrophils/100 WBC (Bld) 42.4 % [facility] Nucleated RBC (Bld) [#/Vol] <0.01 k/uL [facility] Nucleated RBC/100 WBC (Bld) [Ratio] 0.0 /100 WBC [facility] Platelet mean volume (Bld) [Entitic vol] 9.6 fL 9.0 - 12.7 fL [facility] Platelets (Bld) [#/Vol] 169 10*3/uL 150 - 400 k/uL [facility] RBC (Bld) [#/Vol] 3.39 10*6/uL Low 3.90 - 5.2 0 m/uL [facility] WBC (Bld) [#/Vol] 2.95 10*3/uL Low 3.70 - 11. 00 k/uL [facility] Comprehensive metabolic 2000 panelon 08-30-2023 Albumin [Mass/Vol] 3.5 g/dL Low 3.9 - 4.9 g/dL [facility] ALP [Catalytic activity/Vol] 156 U/L High 34 - 123 U/L [facility] ALT [Catalytic activity/Vol] 15 U/L 7 - 38 U/L [facility] Anion gap [Moles/Vol] 7 mmol/L Low 9 - 18 mmol/L [facility] AST [Catalytic activity/Vol] 31 U/L 13 - 35 U/L [facility] Bilirubin [Mass/Vol] 0.5 mg/dL 0.2 - 1 .3 mg/dL [facility] Calcium [Mass/Vol] 10.0 mg/dL 8.5 - 10. 2 mg/dL [facility] Chloride [Moles/Vol] 108 mmol/L High 97 - 10 5 mmol/L [facility] CO2 [Moles/Vol] 25 mmol/L 22 - 30 mmol/L [facility] Creatinine [Mass/Vol] 0.96 mg/dL 0.58 - 0.96 mg/dL [facility] Estimated Glomerular Filtration Rate 64 mL/min/1.73m >=60 mL/min/1.73m [facility] Glucose [Mass/Vol] 132 mg/dL High 74 - 99 mg/dL [facility] Potassium [Moles/Vol] 3.7 mmol/L 3.7 - 5.1 mmol/L [facility] Protein [Mass/Vol] 5.7 g/dL Low 6.3 - 8.0 g/dL [facility] Sodium [Moles/Vol] 140 mmol/L 136 - 144 mmol/L [facility] Urea nitrogen [Mass/Vol] 12 mg/dL 7 - 21 mg/dL [facility] PET/CT SKULL-THIGH SUBQon 08-22-2023 DC PET/CT SKULL-THIGH SUBQ * * *Final Report* * * DATE OF EXAM: Aug 22 2023 10:41AM [facility] [id number] - DC PET/CT SKULL-THIGH SUBQ / PROCEDURE REASON: multiple diagnoses * * * * Physician Interpretation * * * * EXAMINATION: BODY FDG PET-CT CLINICAL HISTORY: 67 years old Female with Malignant neoplasm of lower-inner quadrant of right breast of female, estrogen receptor positive (HCC) Malignant neoplasm of lower-inner quadrant of right breast of female, estrogen receptor positive (HCC) Malignant neoplasm metastatic to bone (HCC) Malignant neoplasm metastatic to lung, unspecified laterality (HCC). INDICATION: Subsequent treatment strategy. TECHNIQUE: Radiopharmaceutical was administered IV followed about 60 minutes later by PET imaging from skull base to proximal thighs. Free breathing, low dose CT of the same body region was acquired without IV contrast for attenuation correction and anatomic localization. * CT Dose-Length Product (DLP): 368 mGy*cm * CT Dose Reduction Employed: Yes * Blood glucose (mg/dL): - * Radiopharmaceutical Dose: 13.6 mCi * Radiopharmaceutical: [id number] (FDG) COMPARISON: 08/25/2021 CORRELATION: CT chest 07/26/2023, CT abdomen and pelvis 01/26/2023 RESULT: REFERENCES: SUV reference values: * Blood pool (descending aorta) activity: SUVmax 2.4 * Background liver activity: SUVmax 3.2; SUVmean 2.4 [employer] (topogram) images: Unremarkable. Notes and limitations: * Standardized uptake values indicate the highest activity concentration (SUVmax) at a given location but can be variable and are not absolute. * Physiologic/non-neopla stic uptake is common in the brain, extraocular muscles, oral cavity, tonsils, salivary glands, vocal cords, myocardium, liver, GI tract, urinary tract, and bone marrow among others. Certain regions and organ systems can have more intense uptake, which could confound or obscure some pathology. * Unenhanced imaging is limited for the evaluation of some pathology and the acquired CT was not designed to produce or replace diagnostic CT scan quality. * PET-CT is often not sensitive for pulmonary nodules less than 8 mm. HEAD AND NECK: Imaged Head: No abnormal uptake. Neck and Lymph Nodes: No abnormal uptake. Thyroid: Left thyroid lobe focal uptake with SUV max 5.3 previously 5.8. CHEST: Lungs and Airways: FDG avid right middle lobe nodule 1.6 cm previously 1.4 cm with SUV max 11.4 0.6 cm right lower lobe nodule with minimal uptake SUV max 1.8. Pleura and Pericardium: No abnormal uptake. Cardiovascular: No abnormal uptake. Mediastinum and Lymph Nodes: No abnormal uptake. Status post right mastectomy with no abnormal uptake. ABDOMEN AND PELVIS: Hepatobiliary: No abnormal uptake. Spleen: No abnormal uptake. Pancreas: No abnormal uptake. Adrenals: No abnormal uptake. Urinary Tract: No abnormal uptake. GI Tract: No abnormal uptake. Peritoneum: No abnormal uptake. Vasculature: No abnormal uptake. Retroperitoneum and Lymph Nodes: No abnormal uptake. Pelvis: No abnormal uptake. MUSCULOSKELETAL: Osseous: No abnormal uptake. Degenerative changes. No abnormal uptake within area of sclerosis in the lower aspect of the sternum Soft Tissues: No abnormal uptake. IMPRESSION: HEAD/NECK: * Stable FDG avid left thyroid lobe lesion. CHEST: * FDG avid right middle lobe lung nodule slightly increased in size as compared to prior CT, suspicious for neoplasm. Subcentimeter right lower lobe lung nodule with mild uptake, suspicious. ABDOMEN/PELVIS: * No FDG avid neoplastic process. MUSCULOSKELETAL: * No FDG avid neoplastic process. Black Off Worker: PSCRavi Transcribe Date/Time: Aug 23 2023 9:53A Dictated by : KARON CANALES MD This examination was interpreted and the report reviewed and electronically signed by: KARON CANALES MD on Aug 23 2023 10:15AM EST [id number] [facility] Absolute lymphocyte countOrd ered By: Eze Mack on 08-16-2023 Lymphocytes Auto (Unsp spec) [#/Vol] 0.82 10*3/uL 0.83-4.51 [facility] Automated lymphocyte count a s percentage of total leukocytesOrdered By: Eze Mack on 08-16-2023 Lymphocytes/100 WBC Auto (Unsp spec) 21.9 % 19-41 [facility] Basophil percentageOrdered B y: Eze Mack on 08-16-2023 Basophils/100 WBC (Bld) 0.3 % 0-1 [facility] Bilirubin [Mass/Vol] 0.60 mg/dL 0.20-1.[address] [facility] Comment on above: For patients on eltr ombopag therapy, use of Dimension [place] TBIL is not recommended. Chloride [Moles/Vol] 110 mmol/L 98-[address] [facility] Eosinophils/100 WBC (Bld) 4.5 % 0-5 [facility] Glucose [Mass/Vol] 104 mg/dL 74-106 [facility] Comment on above: Fasting Glucose resu lt from 100 to 125 mg/dL suggests IMPAIRED HOMEOSTASIS per A.D.A. criteria. Hemoglobin (Bld) [Mass/Vol] 12.0 g/dL 12.0-15.0 [facility] Monocytes/100 WBC (Bld) 7.5 % 0-10 [facility] Neutrophils (Bld) [#/Vol] 2.5 10*3/uL 2.0-7.7 [facility] Neutrophils/100 WBC (Bld) 65.5 % 47-70 [facility] Potassium [Moles/Vol] 3.7 mmol/L 3.5-5.1 [facility] Protein [Mass/Vol] 5.6 g/dL 6.4-8.2 [facility] Sodium [Moles/Vol] 143 mmol/L 136-145 [facility] WBC (Bld) [#/Vol] 3.8 10*3/uL 4.4-11.0 [facility] Determination of erythrocyte mean corpuscular volume (MCV)Ordered By: Eze Mack on 08-16-2023 MCV (RBC) [Entitic vol] 108.0 fL 81-99 [facility] Erythrocyte distribution wid th ratioOrdered By: Eze Mack on 08-16-2023 Erythrocyte distribution width (RBC) [Ratio] 14.5 % 11.6-14.6 [facility] Erythrocyte distribution wid th standard deviationOrdered By: Eze Mack on 08-16-2023 Erythrocyte distribution width (RBC) [Entitic vol] 57.0 fL 35.1-43.9 [facility] Hematocrit Auto (Bld) [Volum e fraction]Ordered By: Ezeglenn Mack on 08-16-2023 Hematocrit (Bld) [Volume fraction] 36.6 % 37-47 [facility] Immature granulocytes/100 WB C Auto (Bld)Ordered By: Eze Mack on 08-16-2023 Immature granulocytes/100 WBC (Bld) 0.300 % 0.0-0.9 [facility] Comment on above: IG% - Immature Granu locytes (promyelocytes, myelocytes and metamyelocytes) > 1% indicates that a LEFT SHIFT is Present. Laboratory - Chemistry and C hemistry - challengeOrdered By: Eze Mack on 08-16-2023 Albumin/Globulin [Mass ratio] 1.1 {ratio} 0.9-2.4 [facility] ALP [Catalytic activity/Vol] 133 U/L 45-117 [facility] ALT [Catalytic activity/Vol] 25 U/L 13-56 [facility] CO2 [Moles/Vol] 29.0 mmol/L 21.0-32.0 [facility] Globulin (S) [Mass/Vol] 2.7 g/dL 2.2-4.2 [facility] Urea nitrogen/Creatinine [Mass ratio] 16.7 mg/mg 10-20 [facility] Laboratory - Hematology and Cell countsOrdered By: Eze Mack on 08-16-2023 MCH (RBC) [Entitic mass] 35.4 pg 27.0-32.0 [facility] MCHC (RBC) [Mass/Vol] 32.8 g/dL 32-36 [facility] Nucleated RBC/100 WBC (Bld) [Ratio] 0 % 0-5 [facility] Platelet mean volume (Bld) [Entitic vol] 9.9 fL 6.2-12.0 [facility] Platelets (Bld) [#/Vol] 140 10*3/uL 150-450 [facility] No Panel InformationOrdered By: Eze Mack on 08-16-2023 Estimated Creatinine Clearance Calc 54.98 ml/min [facility] Estimated GFR (MDRD) Amer 74 mL/min >60 [facility] Comment on above: GFR Calc Estimated GFR (MDRD) Non-Af Amer 61 mL/min >60 [facility] Comment on above: Non- GFR Calc RBC Auto (Bld) [#/Vol]Ordere d By: Eze Mack on 08-16-2023 RBC (Bld) [#/Vol] 3.39 10*6/uL 4.2-5.4 [facility] Serum or plasma calcium michelle urement (mass/volume)Ordered By: Eze Mack on 08-16-2023 Calcium [Mass/Vol] 9.0 mg/dL 8.5-10.1 [facility] Serum or plasma creatinine m easurement (mass/volume)Ordered By: Eze Mack on 08-16-2023 Creatinine [Mass/Vol] 0.96 mg/dL 0.55-1.02 [facility] Comment on above: The validity of the calculated GFR & GFRAA in patients over 70 years has not been determined. Clinical correlation is essential. Serum or plasma urea nitroge n measurement (mass/volume)Ordered By: Eze Mack on 08-16-2023 Urea nitrogen [Mass/Vol] 16 mg/dL 7-18 [facility] Thin prep Papanicolaou smear with manual screeningOrdered By: Eze Mack on 08-16-2023 Thin prep Papanicolaou smear with manual screening 2.9 g/dL 3.2-5.0 [facility] Thin prep Papanicolaou smear with manual screening 31 U/L 15-37 [facility] Thin prep Papanicolaou smear with manual screening 4 5-15 [facility] CBC W Auto Differential pane l (Bld)on 08-10-2023 Basophils (Bld) [#/Vol] <0.11 k/uL [facility] Basophils/100 WBC (Bld) 0.6 % [facility] Differential cell count method Nom (Bld) Auto [facility] Eosinophils (Bld) [#/Vol] 0.23 10*3/uL <0.46 k/uL [facility] Eosinophils/100 WBC (Bld) 7.3 % [facility] Erythrocyte distribution width (RBC) [Ratio] 14.7 % 11.5 - 15.0 % [facility] Hematocrit (Bld) [Volume fraction] 36.1 % 36.0 - 46.0 % [facility] Hemoglobin (Bld) [Mass/Vol] 12.2 g/dL 11.5 - 15.5 g/dL [facility] Immature granulocytes (Bld) [#/Vol] <0.10 k/uL [facility] Immature granulocytes/100 WBC (Bld) 0.0 % [facility] Lymphocytes (Bld) [#/Vol] 0.88 10*3/uL Low 1.00 - 4.00 k/uL [facility] Lymphocytes/100 WBC (Bld) 28.1 % [facility] MCH (RBC) [Entitic mass] 36.0 pg High 26.0 - 34.0 pg [facility] MCHC (RBC) [Mass/Vol] 33.8 g/dL 30.5 - 36.0 g/dL [facility] MCV (RBC) [Entitic vol] 106.5 fL High 80.0 - 100.0 fL [facility] Monocytes (Bld) [#/Vol] 0.45 10*3/uL <0.87 k/uL [facility] Monocytes/100 WBC (Bld) 14.4 % [facility] Neutrophils (Bld) [#/Vol] 1.55 10*3/uL 1.45 - 7.50 k/uL [facility] Neutrophils/100 WBC (Bld) 49.6 % [facility] Nucleated RBC (Bld) [#/Vol] <0.01 k/uL [facility] Nucleated RBC/100 WBC (Bld) [Ratio] 0.0 /100 WBC [facility] Platelet mean volume (Bld) [Entitic vol] 9.5 fL 9.0 - 12.7 fL [facility] Platelets (Bld) [#/Vol] 155 10*3/uL 150 - 400 k/uL [facility] RBC (Bld) [#/Vol] 3.39 10*6/uL Low 3.90 - 5.2 0 m/uL [facility] WBC (Bld) [#/Vol] 3.13 10*3/uL Low 3.70 - 11. 00 k/uL [facility] Comprehensive metabolic 2000 panelon 08-10-2023 Albumin [Mass/Vol] 3.6 g/dL Low 3.9 - 4.9 g/dL [facility] ALP [Catalytic activity/Vol] 154 U/L High 34 - 123 U/L [facility] ALT [Catalytic activity/Vol] 18 U/L 7 - 38 U/L [facility] Anion gap [Moles/Vol] 6 mmol/L Low 9 - 18 mmol/L [facility] AST [Catalytic activity/Vol] 33 U/L 13 - 35 U/L [facility] Bilirubin [Mass/Vol] 0.4 mg/dL 0.2 - 1 .3 mg/dL [facility] Calcium [Mass/Vol] 9.9 mg/dL 8.5 - 10. 2 mg/dL [facility] Chloride [Moles/Vol] 107 mmol/L High 97 - 10 5 mmol/L [facility] CO2 [Moles/Vol] 28 mmol/L 22 - 30 mmol/L [facility] Creatinine [Mass/Vol] 0.97 mg/dL High 0.58 - 0.96 mg/dL [facility] Estimated Glomerular Filtration Rate 63 mL/min/1.73m >=60 mL/min/1.73m [facility] Glucose [Mass/Vol] 109 mg/dL High 74 - 99 mg/dL [facility] Potassium [Moles/Vol] 4.0 mmol/L 3.7 - 5.1 mmol/L [facility] Protein [Mass/Vol] 5.8 g/dL Low 6.3 - 8.0 g/dL [facility] Sodium [Moles/Vol] 141 mmol/L 136 - 144 mmol/L [facility] Urea nitrogen [Mass/Vol] 11 mg/dL 7 - 21 mg/dL [facility] CBC W Auto Differential pane l (Bld)on 07-20-2023 Basophils (Bld) [#/Vol] 0.04 10*3/uL <0.11 k/uL [facility] Basophils/100 WBC (Bld) 1.0 % [facility] Differential cell count method Nom (Bld) Auto [facility] Eosinophils (Bld) [#/Vol] 0.31 10*3/uL <0.46 k/uL [facility] Eosinophils/100 WBC (Bld) 7.4 % [facility] Erythrocyte distribution width (RBC) [Ratio] 15.3 % High 11.5 - 15.0 % [facility] Hematocrit (Bld) [Volume fraction] 40.1 % 36.0 - 46.0 % [facility] Hemoglobin (Bld) [Mass/Vol] 13.4 g/dL 11.5 - 15.5 g/dL [facility] Immature granulocytes (Bld) [#/Vol] <0.10 k/uL [facility] Immature granulocytes/100 WBC (Bld) 0.0 % [facility] Lymphocytes (Bld) [#/Vol] 1.06 10*3/uL 1.00 - 4.00 k/uL [facility] Lymphocytes/100 WBC (Bld) 25.4 % [facility] MCH (RBC) [Entitic mass] 35.9 pg High 26.0 - 34.0 pg [facility] MCHC (RBC) [Mass/Vol] 33.4 g/dL 30.5 - 36.0 g/dL [facility] MCV (RBC) [Entitic vol] 107.5 fL High 80.0 - 100.0 fL [facility] Monocytes (Bld) [#/Vol] 0.40 10*3/uL <0.87 k/uL [facility] Monocytes/100 WBC (Bld) 9.6 % [facility] Neutrophils (Bld) [#/Vol] 2.37 10*3/uL 1.45 - 7.50 k/uL [facility] Neutrophils/100 WBC (Bld) 56.6 % [facility] Nucleated RBC (Bld) [#/Vol] <0.01 k/uL [facility] Nucleated RBC/100 WBC (Bld) [Ratio] 0.0 /100 WBC [facility] Platelet mean volume (Bld) [Entitic vol] 10.1 fL 9.0 - 12.7 fL [facility] Platelets (Bld) [#/Vol] 143 10*3/uL Low 150 - 400 k/uL [facility] RBC (Bld) [#/Vol] 3.73 10*6/uL Low 3.90 - 5.2 0 m/uL [facility] WBC (Bld) [#/Vol] 4.18 10*3/uL 3.70 - 11. 00 k/uL [facility] Comprehensive metabolic 2000 panelon 07-20-2023 Albumin [Mass/Vol] 3.6 g/dL Low 3.9 - 4.9 g/dL [facility] ALP [Catalytic activity/Vol] 179 U/L High 34 - 123 U/L [facility] ALT [Catalytic activity/Vol] 21 U/L 7 - 38 U/L [facility] Anion gap [Moles/Vol] 7 mmol/L Low 9 - 18 mmol/L [facility] AST [Catalytic activity/Vol] 38 U/L High 13 - 35 U/L [facility] Bilirubin [Mass/Vol] 0.6 mg/dL 0.2 - 1 .3 mg/dL [facility] Calcium [Mass/Vol] 9.7 mg/dL 8.5 - 10. 2 mg/dL [facility] Chloride [Moles/Vol] 107 mmol/L High 97 - 10 5 mmol/L [facility] CO2 [Moles/Vol] 27 mmol/L 22 - 30 mmol/L [facility] Creatinine [Mass/Vol] 0.93 mg/dL 0.58 - 0.96 mg/dL [facility] Estimated Glomerular Filtration Rate 67 mL/min/1.73m >=60 mL/min/1.73m [facility] Glucose [Mass/Vol] 132 mg/dL High 74 - 99 mg/dL [facility] Potassium [Moles/Vol] 3.6 mmol/L Low 3.7 - 5.1 mmol/L [facility] Protein [Mass/Vol] 5.8 g/dL Low 6.3 - 8.0 g/dL [facility] Sodium [Moles/Vol] 141 mmol/L 136 - 144 mmol/L [facility] Urea nitrogen [Mass/Vol] 13 mg/dL 7 - 21 mg/dL [facility] CBC W Auto Differential pane l (Bld)on 04-26-2023 Basophils (Bld) [#/Vol] 0.04 10*3/uL <0.11 k/uL [facility] Basophils/100 WBC (Bld) 0.9 % [facility] Differential cell count method Nom (Bld) Auto [facility] Eosinophils (Bld) [#/Vol] 0.35 10*3/uL <0.46 k/uL [facility] Eosinophils/100 WBC (Bld) 8.0 % [facility] Erythrocyte distribution width (RBC) [Ratio] 14.5 % 11.5 - 15.0 % [facility] Hematocrit (Bld) [Volume fraction] 37.8 % 36.0 - 46.0 % [facility] Hemoglobin (Bld) [Mass/Vol] 12.6 g/dL 11.5 - 15.5 g/dL [facility] Immature granulocytes (Bld) [#/Vol] <0.10 k/uL [facility] Immature granulocytes/100 WBC (Bld) 0.2 % [facility] Lymphocytes (Bld) [#/Vol] 1.17 10*3/uL 1.00 - 4.00 k/uL [facility] Lymphocytes/100 WBC (Bld) 26.7 % [facility] MCH (RBC) [Entitic mass] 33.9 pg 26.0 - 34.0 pg [facility] MCHC (RBC) [Mass/Vol] 33.3 g/dL 30.5 - 36.0 g/dL [facility] MCV (RBC) [Entitic vol] 101.6 fL High 80.0 - 100.0 fL [facility] Monocytes (Bld) [#/Vol] 0.51 10*3/uL <0.87 k/uL [facility] Monocytes/100 WBC (Bld) 11.6 % [facility] Neutrophils (Bld) [#/Vol] 2.30 10*3/uL 1.45 - 7.50 k/uL [facility] Neutrophils/100 WBC (Bld) 52.6 % [facility] Nucleated RBC (Bld) [#/Vol] <0.01 k/uL [facility] Nucleated RBC/100 WBC (Bld) [Ratio] 0.0 /100 WBC [facility] Platelet mean volume (Bld) [Entitic vol] 9.2 fL 9.0 - 12.7 fL [facility] Platelets (Bld) [#/Vol] 176 10*3/uL 150 - 400 k/uL [facility] RBC (Bld) [#/Vol] 3.72 10*6/uL Low 3.90 - 5.2 0 m/uL [facility] WBC (Bld) [#/Vol] 4.38 10*3/uL 3.70 - 11. 00 k/uL [facility] Comprehensive metabolic 2000 panelon 04-26-2023 Albumin [Mass/Vol] 3.7 g/dL Low 3.9 - 4.9 g/dL [facility] ALP [Catalytic activity/Vol] 160 U/L High 34 - 123 U/L [facility] ALT [Catalytic activity/Vol] 16 U/L 7 - 38 U/L [facility] Anion gap [Moles/Vol] 7 mmol/L Low 9 - 18 mmol/L [facility] AST [Catalytic activity/Vol] 32 U/L 13 - 35 U/L [facility] Bilirubin [Mass/Vol] 0.5 mg/dL 0.2 - 1 .3 mg/dL [facility] Calcium [Mass/Vol] 8.9 mg/dL 8.5 - 10. 2 mg/dL [facility] Chloride [Moles/Vol] 107 mmol/L High 97 - 10 5 mmol/L [facility] CO2 [Moles/Vol] 28 mmol/L 22 - 30 mmol/L [facility] Creatinine [Mass/Vol] 0.92 mg/dL 0.58 - 0.96 mg/dL [facility] Estimated Glomerular Filtration Rate 68 mL/min/1.73m >=60 mL/min/1.73m [facility] Glucose [Mass/Vol] 123 mg/dL High 74 - 99 mg/dL [facility] Potassium [Moles/Vol] 3.7 mmol/L 3.7 - 5.1 mmol/L [facility] Protein [Mass/Vol] 5.9 g/dL Low 6.3 - 8.0 g/dL [facility] Sodium [Moles/Vol] 142 mmol/L 136 - 144 mmol/L [facility] Urea nitrogen [Mass/Vol] 9 mg/dL 7 - 21 mg/dL [facility] US THYROID/PARATHYROIDon [facility] CBC W Auto Differential pane l (Bld)on 03-16-2023 Basophils (Bld) [#/Vol] <0.11 k/uL [facility] Basophils/100 WBC (Bld) 0.5 % [facility] Differential cell count method Nom (Bld) Auto [facility] Eosinophils (Bld) [#/Vol] 0.23 10*3/uL <0.46 k/uL [facility] Eosinophils/100 WBC (Bld) 5.4 % [facility] Erythrocyte distribution width (RBC) [Ratio] 13.2 % 11.5 - 15.0 % [facility] Hematocrit (Bld) [Volume fraction] 39.3 % 36.0 - 46.0 % [facility] Hemoglobin (Bld) [Mass/Vol] 13.4 g/dL 11.5 - 15.5 g/dL [facility] Immature granulocytes (Bld) [#/Vol] <0.10 k/uL [facility] Immature granulocytes/100 WBC (Bld) 0.2 % [facility] Lymphocytes (Bld) [#/Vol] 1.06 10*3/uL 1.00 - 4.00 k/uL [facility] Lymphocytes/100 WBC (Bld) 24.7 % [facility] MCH (RBC) [Entitic mass] 35.3 pg High 26.0 - 34.0 pg [facility] MCHC (RBC) [Mass/Vol] 34.1 g/dL 30.5 - 36.0 g/dL [facility] MCV (RBC) [Entitic vol] 103.4 fL High 80.0 - 100.0 fL [facility] Monocytes (Bld) [#/Vol] 0.46 10*3/uL <0.87 k/uL [facility] Monocytes/100 WBC (Bld) 10.7 % [facility] Neutrophils (Bld) [#/Vol] 2.51 10*3/uL 1.45 - 7.50 k/uL [facility] Neutrophils/100 WBC (Bld) 58.5 % [facility] Nucleated RBC (Bld) [#/Vol] <0.01 k/uL [facility] Nucleated RBC/100 WBC (Bld) [Ratio] 0.0 /100 WBC [facility] Platelet mean volume (Bld) [Entitic vol] 9.8 fL 9.0 - 12.7 fL [facility] Platelets (Bld) [#/Vol] 119 10*3/uL Low 150 - 400 k/uL [facility] RBC (Bld) [#/Vol] 3.80 10*6/uL Low 3.90 - 5.2 0 m/uL [facility] WBC (Bld) [#/Vol] 4.29 10*3/uL 3.70 - 11. 00 k/uL [facility] Comprehensive metabolic 2000 panelon 03-16-2023 Albumin [Mass/Vol] 3.7 g/dL Low 3.9 - 4.9 g/dL [facility] ALP [Catalytic activity/Vol] 219 U/L High 34 - 123 U/L [facility] ALT [Catalytic activity/Vol] 25 U/L 7 - 38 U/L [facility] Anion gap [Moles/Vol] 9 mmol/L 9 - 18 mmol/L [facility] AST [Catalytic activity/Vol] 35 U/L 13 - 35 U/L [facility] Bilirubin [Mass/Vol] 0.4 mg/dL 0.2 - 1 .3 mg/dL [facility] Calcium [Mass/Vol] 9.6 mg/dL 8.5 - 10. 2 mg/dL [facility] Chloride [Moles/Vol] 107 mmol/L High 97 - 10 5 mmol/L [facility] CO2 [Moles/Vol] 24 mmol/L 22 - 30 mmol/L [facility] Creatinine [Mass/Vol] 0.90 mg/dL 0.58 - 0.96 mg/dL [facility] Estimated Glomerular Filtration Rate 69 mL/min/1.73m >=60 mL/min/1.73m [facility] Glucose [Mass/Vol] 137 mg/dL High 74 - 99 mg/dL [facility] Potassium [Moles/Vol] 3.6 mmol/L Low 3.7 - 5.1 mmol/L [facility] Protein [Mass/Vol] 5.6 g/dL Low 6.3 - 8.0 g/dL [facility] Sodium [Moles/Vol] 140 mmol/L 136 - 144 mmol/L [facility] Urea nitrogen [Mass/Vol] 14 mg/dL 7 - 21 mg/dL [facility] CT CHEST WO IVCONon 03-11-20 [facility] CBC W Auto Differential pane l (Bld)on 02-23-2023 Basophils (Bld) [#/Vol] 0.03 10*3/uL <0.11 k/uL [facility] Basophils/100 WBC (Bld) 0.7 % [facility] Differential cell count method Nom (Bld) Auto [facility] Eosinophils (Bld) [#/Vol] 0.29 10*3/uL <0.46 k/uL [facility] Eosinophils/100 WBC (Bld) 7.1 % [facility] Erythrocyte distribution width (RBC) [Ratio] 13.9 % 11.5 - 15.0 % [facility] Hematocrit (Bld) [Volume fraction] 40.1 % 36.0 - 46.0 % [facility] Hemoglobin (Bld) [Mass/Vol] 13.2 g/dL 11.5 - 15.5 g/dL [facility] Immature granulocytes (Bld) [#/Vol] <0.10 k/uL [facility] Immature granulocytes/100 WBC (Bld) 0.2 % [facility] Lymphocytes (Bld) [#/Vol] 1.09 10*3/uL 1.00 - 4.00 k/uL [facility] Lymphocytes/100 WBC (Bld) 26.8 % [facility] MCH (RBC) [Entitic mass] 35.2 pg High 26.0 - 34.0 pg [facility] MCHC (RBC) [Mass/Vol] 32.9 g/dL 30.5 - 36.0 g/dL [facility] MCV (RBC) [Entitic vol] 106.9 fL High 80.0 - 100.0 fL [facility] Monocytes (Bld) [#/Vol] 0.45 10*3/uL <0.87 k/uL [facility] Monocytes/100 WBC (Bld) 11.1 % [facility] Neutrophils (Bld) [#/Vol] 2.20 10*3/uL 1.45 - 7.50 k/uL [facility] Neutrophils/100 WBC (Bld) 54.1 % [facility] Nucleated RBC (Bld) [#/Vol] <0.01 k/uL [facility] Nucleated RBC/100 WBC (Bld) [Ratio] 0.0 /100 WBC [facility] Platelet mean volume (Bld) [Entitic vol] 9.6 fL 9.0 - 12.7 fL [facility] Platelets (Bld) [#/Vol] 135 10*3/uL Low 150 - 400 k/uL [facility] RBC (Bld) [#/Vol] 3.75 10*6/uL Low 3.90 - 5.2 0 m/uL [facility] WBC (Bld) [#/Vol] 4.07 10*3/uL 3.70 - 11. 00 k/uL [facility] Comprehensive metabolic 2000 panelon 02-23-2023 Albumin [Mass/Vol] 3.8 g/dL Low 3.9 - 4.9 g/dL [facility] ALP [Catalytic activity/Vol] 206 U/L High 34 - 123 U/L [facility] ALT [Catalytic activity/Vol] 20 U/L 7 - 38 U/L [facility] Anion gap [Moles/Vol] 9 mmol/L 9 - 18 mmol/L [facility] AST [Catalytic activity/Vol] 33 U/L 13 - 35 U/L [facility] Bilirubin [Mass/Vol] 0.5 mg/dL 0.2 - 1 .3 mg/dL [facility] Calcium [Mass/Vol] 10.1 mg/dL 8.5 - 10. 2 mg/dL [facility] Chloride [Moles/Vol] 105 mmol/L 97 - 10 5 mmol/L [facility] CO2 [Moles/Vol] 28 mmol/L 22 - 30 mmol/L [facility] Creatinine [Mass/Vol] 0.92 mg/dL 0.58 - 0.96 mg/dL [facility] Estimated Glomerular Filtration Rate 68 mL/min/1.73m >=60 mL/min/1.73m [facility] Glucose [Mass/Vol] 104 mg/dL High 74 - 99 mg/dL [facility] Potassium [Moles/Vol] 3.8 mmol/L 3.7 - 5.1 mmol/L [facility] Protein [Mass/Vol] 6.1 g/dL Low 6.3 - 8.0 g/dL [facility] Sodium [Moles/Vol] 142 mmol/L 136 - 144 mmol/L [facility] Urea nitrogen [Mass/Vol] 14 mg/dL 7 - 21 mg/dL [facility] Absolute lymphocyte countOrd ered By: Gurvinder Dill on 02-16-2023 Lymphocytes Auto (Unsp spec) [#/Vol] 1.14 10*3/uL 0.83-4.51 [facility] Basophil percentageOrdered B y: Gurvinder Dill on 02-16-2023 Basophils/100 WBC (Bld) 0.6 % 0-1 [facility] Eosinophils/100 WBC (Bld) 5.2 % 0-5 [facility] Neutrophils (Bld) [#/Vol] 2.7 10*3/uL 2.0-7.7 [facility] Neutrophils/100 WBC (Bld) 58.7 % 47-70 [facility] WBC (Bld) [#/Vol] 4.7 10*3/uL 4.4-11.0 [facility] Chloride [Moles/Vol] 109 mmol/L 98-[address] [facility] Glucose [Mass/Vol] 90 mg/dL 74-106 [facility] Potassium [Moles/Vol] 4.4 mmol/L 3.5-5.1 [facility] Sodium [Moles/Vol] 143 mmol/L 136-145 [facility] Blood erythrocytes count (nu mber/volume)Ordered By: Gurvinder Dill on 02-16-2023 RBC (Bld) [#/Vol] 3.53 10*6/uL 4.2-5.4 [facility] Blood hemoglobin measurement (mass/volume)Ordered By: Gurvinder Dill on 02-16-2023 Hemoglobin (Bld) [Mass/Vol] 12.7 g/dL 12.0-15.0 [facility] Blood lymphocytes/100 leukoc ytesOrdered By: Gurvinder Dill on 02-16-2023 Lymphocytes/100 WBC (Bld) 24.5 % 19-41 [facility] Blood monocytes/100 leukocyt esOrdered By: [facility] on 02-16-2023 Monocytes/100 WBC (Bld) 10.8 % 0-10 [facility] Blood platelet mean volumeOr dered By: Gurvinder Dill on 02-16-2023 Platelet mean volume (Bld) [Entitic vol] 10.5 fL 6.2-12.0 [facility] Determination of erythrocyte mean corpuscular volume (MCV)Ordered By: [place] Fuentes on 02-16-2023 MCV (RBC) [Entitic vol] 111.3 fL 81-99 [facility] Hematocrit Auto (Bld) [Volum e fraction][facility]dered By: [facility] 02-16-2023 Hematocrit (Bld) [Volume fraction] 39.3 % 37-47 [facility] Laboratory - Chemistry and C hemistry - challengeOrdered By: [facility] on 02-16-2023 CO2 [Moles/Vol] 31.0 mmol/L 21.0-32.0 [facility] Natriuretic peptide B (Bld) [Mass/Vol] 92.8 pg/mL 0-100 [facility] Urea nitrogen/Creatinine [Mass ratio] 13.1 mg/mg 10-20 [facility] Laboratory - Hematology and Cell countsOrdered By: [facility] on 02-16-2023 Erythrocyte distribution width (RBC) [Entitic vol] 59.1 fL 35.1-43.9 [facility] Erythrocyte distribution width (RBC) [Ratio] 14.3 % 11.6-14.6 [facility] Immature granulocytes/100 WBC (Bld) 0.200 % 0.0-0.9 [facility] Comment on above: IG% - Immature Granu locytes (promyelocytes, myelocytes and metamyelocytes) > 1% indicates that a LEFT SHIFT is Present. MCH (RBC) [Entitic mass] 36.0 pg 27.0-32.0 [facility] Nucleated RBC/100 WBC (Bld) [Ratio] 0 % 0-5 [facility] MCHC Auto (RBC) [Mass/Vol]Or dered By: [place] Fuentes on 02-16-2023 MCHC (RBC) [Mass/Vol] 32.3 g/dL 32-36 [facility] No Panel InformationOrdered By: [facility] 02-16[facility]2023 D-Dimer Quantitative (PE/DVT) 0.77 FEU/ug/m 0.27-0.49 [facility] Comment on above: D-Dimer ELEVATED (>0 .49): Additional studies and clinicalassessments are indicated to conclude diagnosis of:Deep Vein Thrombosis (DVT) or Pulmonary Embolism (PE)CRITICAL VALUE VERIFIED. CALLED TO ELVA GRIMM02/16/23 2130 Prasanna Bai.RESULTS READ BACK BY SAME . Estimated Creatinine Clearance Calc 44.03 ml/min [facility] Estimated GFR (MDRD) Amer 78 mL/min >60 [facility] Comment on above: GFR Calc Estimated GFR (MDRD) Non-Af Amer 65 mL/min >60 [facility] Comment on above: Non- GFR Calc Troponin I High Sensitivity 9 pg/mL 3.0-54.0 [facility] Comment on above: Please Note: New Lizbeth t Units and Gender Specific Reference Ranges. For more information see Policy Stat Procedure [place] High Sensitivity Troponin (TNIH) and attachments. Platelets bldOrdered By: Cinthya Fuentes on 02-16-2023 Platelets (Bld) [#/Vol] 115 10*3/uL 150-450 [facility] Serum or plasma calcium michelle urement (mass/volume)Ordered By: Gurvinder Fuentes on 02-16-2023 Calcium [Mass/Vol] 9.6 mg/dL 8.5-10.1 [facility] Serum or plasma creatinine m easurement (mass/volume)Ordered By: [facility] Fuentes on 02-16-2023 Creatinine [Mass/Vol] 0.91 mg/dL 0.55-1.02 [facility] Comment on above: The validity of the calculated GFR & GFRAA in patients over 70 years has not been determined. Clinical correlation is essential. Serum or plasma urea nitroge n measurement (mass/volume)Ordered By: Gurvinder Fuentes on 02-16-2023 Urea nitrogen [Mass/Vol] 12 mg/dL 7-18 [facility] Thin prep Papanicolaou smear with manual screeningOrdered By: Rem Fuentes on 02-16-2023 Thin prep Papanicolaou smear with manual screening 3 5-15 [facility] CBC W Auto Differential pane l (Bld)on 02-02-2023 Basophils (Bld) [#/Vol] 0.03 10*3/uL <0.11 k/uL [facility] Basophils/100 WBC (Bld) 0.9 % [facility] Differential cell count method Nom (Bld) Auto [facility] Eosinophils (Bld) [#/Vol] 0.24 10*3/uL <0.46 k/uL [facility] Eosinophils/100 WBC (Bld) 7.2 % [facility] Erythrocyte distribution width (RBC) [Ratio] 15.3 % High 11.5 - 15.0 % [facility] Hematocrit (Bld) [Volume fraction] 35.7 % Low 36.0 - 46.0 % [facility] Hemoglobin (Bld) [Mass/Vol] 11.9 g/dL 11.5 - 15.5 g/dL [facility] Immature granulocytes (Bld) [#/Vol] <0.10 k/uL [facility] Immature granulocytes/100 WBC (Bld) 0.3 % [facility] Lymphocytes (Bld) [#/Vol] 1.18 10*3/uL 1.00 - 4.00 k/uL [facility] Lymphocytes/100 WBC (Bld) 35.4 % [facility] MCH (RBC) [Entitic mass] 36.1 pg High 26.0 - 34.0 pg [facility] MCHC (RBC) [Mass/Vol] 33.3 g/dL 30.5 - 36.0 g/dL [facility] MCV (RBC) [Entitic vol] 108.2 fL High 80.0 - 100.0 fL [facility] Monocytes (Bld) [#/Vol] 0.46 10*3/uL <0.87 k/uL [facility] Monocytes/100 WBC (Bld) 13.8 % [facility] Neutrophils (Bld) [#/Vol] 1.41 10*3/uL Low 1.45 - 7.50 k/uL [facility] Neutrophils/100 WBC (Bld) 42.4 % [facility] Nucleated RBC (Bld) [#/Vol] <0.01 k/uL [facility] Nucleated RBC/100 WBC (Bld) [Ratio] 0.0 /100 WBC [facility] Platelet mean volume (Bld) [Entitic vol] 9.4 fL 9.0 - 12.7 fL [facility] Platelets (Bld) [#/Vol] 179 10*3/uL 150 - 400 k/uL [facility] RBC (Bld) [#/Vol] 3.30 10*6/uL Low 3.90 - 5.2 0 m/uL [facility] WBC (Bld) [#/Vol] 3.33 10*3/uL Low 3.70 - 11. 00 k/uL [facility] Comprehensive metabolic 2000 panelon 02-02-2023 Albumin [Mass/Vol] 3.7 g/dL Low 3.9 - 4.9 g/dL [facility] ALP [Catalytic activity/Vol] 196 U/L High 34 - 123 U/L [facility] ALT [Catalytic activity/Vol] 21 U/L 7 - 38 U/L [facility] Anion gap [Moles/Vol] 10 mmol/L 9 - 18 mmol/L [facility] AST [Catalytic activity/Vol] 37 U/L High 13 - 35 U/L [facility] Bilirubin [Mass/Vol] 0.3 mg/dL 0.2 - 1 .3 mg/dL [facility] Calcium [Mass/Vol] 9.6 mg/dL 8.5 - 10. 2 mg/dL [facility] Chloride [Moles/Vol] 109 mmol/L High 97 - 10 5 mmol/L [facility] CO2 [Moles/Vol] 23 mmol/L 22 - 30 mmol/L [facility] Creatinine [Mass/Vol] 0.97 mg/dL High 0.58 - 0.96 mg/dL [facility] Estimated Glomerular Filtration Rate 63 mL/min/1.73m >=60 mL/min/1.73m [facility] Glucose [Mass/Vol] 124 mg/dL High 74 - 99 mg/dL [facility] Potassium [Moles/Vol] 4.5 mmol/L 3.7 - 5.1 mmol/L [facility] Protein [Mass/Vol] 5.8 g/dL Low 6.3 - 8.0 g/dL [facility] Sodium [Moles/Vol] 142 mmol/L 136 - 144 mmol/L [facility] Urea nitrogen [Mass/Vol] 16 mg/dL 7 - 21 mg/dL [facility] No Panel Informationon 01-26 [facility] CBC W Auto Differential pane l (Bld)on 01-12-2023 Basophils (Bld) [#/Vol] 0.03 10*3/uL <0.11 k/uL [facility] Basophils/100 WBC (Bld) 0.9 % [facility] Differential cell count method Nom (Bld) Auto [facility] Eosinophils (Bld) [#/Vol] 0.28 10*3/uL <0.46 k/uL [facility] Eosinophils/100 WBC (Bld) 8.3 % [facility] Erythrocyte distribution width (RBC) [Ratio] 15.5 % High 11.5 - 15.0 % [facility] Hematocrit (Bld) [Volume fraction] 35.6 % Low 36.0 - 46.0 % [facility] Hemoglobin (Bld) [Mass/Vol] 11.9 g/dL 11.5 - 15.5 g/dL [facility] Immature granulocytes (Bld) [#/Vol] <0.10 k/uL [facility] Immature granulocytes/100 WBC (Bld) 0.3 % [facility] Lymphocytes (Bld) [#/Vol] 1.14 10*3/uL 1.00 - 4.00 k/uL [facility] Lymphocytes/100 WBC (Bld) 33.7 % [facility] MCH (RBC) [Entitic mass] 36.4 pg High 26.0 - 34.0 pg [facility] MCHC (RBC) [Mass/Vol] 33.4 g/dL 30.5 - 36.0 g/dL [facility] MCV (RBC) [Entitic vol] 108.9 fL High 80.0 - 100.0 fL [facility] Monocytes (Bld) [#/Vol] 0.43 10*3/uL <0.87 k/uL [facility] Monocytes/100 WBC (Bld) 12.7 % [facility] Neutrophils (Bld) [#/Vol] 1.49 10*3/uL 1.45 - 7.50 k/uL [facility] Neutrophils/100 WBC (Bld) 44.1 % [facility] Nucleated RBC (Bld) [#/Vol] <0.01 k/uL [facility] Nucleated RBC/100 WBC (Bld) [Ratio] 0.0 /100 WBC [facility] Platelet mean volume (Bld) [Entitic vol] 9.5 fL 9.0 - 12.7 fL [facility] Platelets (Bld) [#/Vol] 177 10*3/uL 150 - 400 k/uL [facility] RBC (Bld) [#/Vol] 3.27 10*6/uL Low 3.90 - 5.2 0 m/uL [facility] WBC (Bld) [#/Vol] 3.38 10*3/uL Low 3.70 - 11. 00 k/uL [facility] Comprehensive metabolic 2000 panelon 01-12-2023 Albumin [Mass/Vol] 3.5 g/dL Low 3.9 - 4.9 g/dL [facility] ALP [Catalytic activity/Vol] 178 U/L High 34 - 123 U/L [facility] ALT [Catalytic activity/Vol] 20 U/L 7 - 38 U/L [facility] Anion gap [Moles/Vol] 7 mmol/L Low 9 - 18 mmol/L [facility] AST [Catalytic activity/Vol] 34 U/L 13 - 35 U/L [facility] Bilirubin [Mass/Vol] 0.4 mg/dL 0.2 - 1 .3 mg/dL [facility] Calcium [Mass/Vol] 9.5 mg/dL 8.5 - 10. 2 mg/dL [facility] Chloride [Moles/Vol] 109 mmol/L High 97 - 10 5 mmol/L [facility] CO2 [Moles/Vol] 24 mmol/L 22 - 30 mmol/L [facility] Creatinine [Mass/Vol] 0.99 mg/dL High 0.58 - 0.96 mg/dL [facility] Estimated Glomerular Filtration Rate 62 mL/min/1.73m >=60 mL/min/1.73m [facility] Glucose [Mass/Vol] 119 mg/dL High 74 - 99 mg/dL [facility] Potassium [Moles/Vol] 4.3 mmol/L 3.7 - 5.1 mmol/L [facility] Protein [Mass/Vol] 5.9 g/dL Low 6.3 - 8.0 g/dL [facility] Sodium [Moles/Vol] 140 mmol/L 136 - 144 mmol/L [facility] Urea nitrogen [Mass/Vol] 14 mg/dL 7 - 21 mg/dL [facility] CBC W Auto Differential pane l (Bld)on 12-01-2022 Basophils (Bld) [#/Vol] 0.03 10*3/uL <0.11 k/uL [facility] Basophils/100 WBC (Bld) 0.7 % [facility] Differential cell count method Nom (Bld) Auto [facility] Eosinophils (Bld) [#/Vol] 0.28 10*3/uL <0.46 k/uL [facility] Eosinophils/100 WBC (Bld) 6.8 % [facility] Erythrocyte distribution width (RBC) [Ratio] 15.2 % High 11.5 - 15.0 % [facility] Hematocrit (Bld) [Volume fraction] 35.2 % Low 36.0 - 46.0 % [facility] Hemoglobin (Bld) [Mass/Vol] 11.9 g/dL 11.5 - 15.5 g/dL [facility] Immature granulocytes (Bld) [#/Vol] <0.10 k/uL [facility] Immature granulocytes/100 WBC (Bld) 0.0 % [facility] Lymphocytes (Bld) [#/Vol] 1.30 10*3/uL 1.00 - 4.00 k/uL [facility] Lymphocytes/100 WBC (Bld) 31.6 % [facility] MCH (RBC) [Entitic mass] 36.7 pg High 26.0 - 34.0 pg [facility] MCHC (RBC) [Mass/Vol] 33.8 g/dL 30.5 - 36.0 g/dL [facility] MCV (RBC) [Entitic vol] 108.6 fL High 80.0 - 100.0 fL [facility] Monocytes (Bld) [#/Vol] 0.43 10*3/uL <0.87 k/uL [facility] Monocytes/100 WBC (Bld) 10.4 % [facility] Neutrophils (Bld) [#/Vol] 2.08 10*3/uL 1.45 - 7.50 k/uL [facility] Neutrophils/100 WBC (Bld) 50.5 % [facility] Nucleated RBC (Bld) [#/Vol] <0.01 k/uL [facility] Nucleated RBC/100 WBC (Bld) [Ratio] 0.0 /100 WBC [facility] Platelet mean volume (Bld) [Entitic vol] 9.2 fL 9.0 - 12.7 fL [facility] Platelets (Bld) [#/Vol] 147 10*3/uL Low 150 - 400 k/uL [facility] RBC (Bld) [#/Vol] 3.24 10*6/uL Low 3.90 - 5.2 0 m/uL [facility] WBC (Bld) [#/Vol] 4.12 10*3/uL 3.70 - 11. 00 k/uL [facility] Comprehensive metabolic 2000 panelon 06-28-2023 Albumin [Mass/Vol] 3.8 g/dL Low 3.9 - 4.9 g/dL [facility] ALP [Catalytic activity/Vol] 202 U/L High 34 - 123 U/L [facility] ALT [Catalytic activity/Vol] 20 U/L 7 - 38 U/L [facility] Anion gap [Moles/Vol] 7 mmol/L Low 9 - 18 mmol/L [facility] AST [Catalytic activity/Vol] 33 U/L 13 - 35 U/L [facility] Bilirubin [Mass/Vol] 0.3 mg/dL 0.2 - 1 .3 mg/dL [facility] Calcium [Mass/Vol] 9.8 mg/dL 8.5 - 10. 2 mg/dL [facility] Chloride [Moles/Vol] 107 mmol/L High 97 - 10 5 mmol/L [facility] CO2 [Moles/Vol] 27 mmol/L 22 - 30 mmol/L [facility] Creatinine [Mass/Vol] 1.02 mg/dL High 0.58 - 0.96 mg/dL [facility] Estimated Glomerular Filtration Rate 60 mL/min/1.73m >=60 mL/min/1.73m [facility] Glucose [Mass/Vol] 134 mg/dL High 74 - 99 mg/dL [facility] Potassium [Moles/Vol] 3.9 mmol/L 3.7 - 5.1 mmol/L [facility] Protein [Mass/Vol] 5.9 g/dL Low 6.3 - 8.0 g/dL [facility] Sodium [Moles/Vol] 141 mmol/L 136 - 144 mmol/L [facility] Urea nitrogen [Mass/Vol] 15 mg/dL 7 - 21 mg/dL [facility] CBC W Auto Differential pane l (Bld)on 11-10-2022 Basophils (Bld) [#/Vol] 0.03 10*3/uL <0.11 k/uL [facility] Basophils/100 WBC (Bld) 0.8 % [facility] Differential cell count method Nom (Bld) Auto [facility] Eosinophils (Bld) [#/Vol] 0.28 10*3/uL <0.46 k/uL [facility] Eosinophils/100 WBC (Bld) 7.6 % [facility] Erythrocyte distribution width (RBC) [Ratio] 15.4 % High 11.5 - 15.0 % [facility] Hematocrit (Bld) [Volume fraction] 36.8 % 36.0 - 46.0 % [facility] Hemoglobin (Bld) [Mass/Vol] 12.4 g/dL 11.5 - 15.5 g/dL [facility] Immature granulocytes (Bld) [#/Vol] <0.10 k/uL [facility] Immature granulocytes/100 WBC (Bld) 0.0 % [facility] Lymphocytes (Bld) [#/Vol] 1.17 10*3/uL 1.00 - 4.00 k/uL [facility] Lymphocytes/100 WBC (Bld) 31.9 % [facility] MCH (RBC) [Entitic mass] 36.5 pg High 26.0 - 34.0 pg [facility] MCHC (RBC) [Mass/Vol] 33.7 g/dL 30.5 - 36.0 g/dL [facility] MCV (RBC) [Entitic vol] 108.2 fL High 80.0 - 100.0 fL [facility] Monocytes (Bld) [#/Vol] 0.46 10*3/uL <0.87 k/uL [facility] Monocytes/100 WBC (Bld) 12.5 % [facility] Neutrophils (Bld) [#/Vol] 1.73 10*3/uL 1.45 - 7.50 k/uL [facility] Neutrophils/100 WBC (Bld) 47.2 % [facility] Nucleated RBC (Bld) [#/Vol] <0.01 k/uL [facility] Nucleated RBC/100 WBC (Bld) [Ratio] 0.0 /100 WBC [facility] Platelet mean volume (Bld) [Entitic vol] 9.5 fL 9.0 - 12.7 fL [facility] Platelets (Bld) [#/Vol] 187 10*3/uL 150 - 400 k/uL [facility] RBC (Bld) [#/Vol] 3.40 10*6/uL Low 3.90 - 5.2 0 m/uL [facility] WBC (Bld) [#/Vol] 3.67 10*3/uL Low 3.70 - 11. 00 k/uL [facility] Comprehensive metabolic 2000 panelon 11-10-2022 Albumin [Mass/Vol] 3.8 g/dL Low 3.9 - 4.9 g/dL [facility] ALP [Catalytic activity/Vol] 183 U/L High 34 - 123 U/L [facility] ALT [Catalytic activity/Vol] 20 U/L 7 - 38 U/L [facility] Anion gap [Moles/Vol] 7 mmol/L Low 9 - 18 mmol/L [facility] AST [Catalytic activity/Vol] 33 U/L 13 - 35 U/L [facility] Bilirubin [Mass/Vol] 0.5 mg/dL 0.2 - 1 .3 mg/dL [facility] Calcium [Mass/Vol] 9.6 mg/dL 8.5 - 10. 2 mg/dL [facility] Chloride [Moles/Vol] 106 mmol/L High 97 - 10 5 mmol/L [facility] CO2 [Moles/Vol] 29 mmol/L 22 - 30 mmol/L [facility] Creatinine [Mass/Vol] 1.01 mg/dL High 0.58 - 0.96 mg/dL [facility] Estimated Glomerular Filtration Rate 60 mL/min/1.73m >=60 mL/min/1.73m [facility] Glucose [Mass/Vol] 114 mg/dL High 74 - 99 mg/dL [facility] Potassium [Moles/Vol] 4.4 mmol/L 3.7 - 5.1 mmol/L [facility] Protein [Mass/Vol] 6.0 g/dL Low 6.3 - 8.0 g/dL [facility] Sodium [Moles/Vol] 142 mmol/L 136 - 144 mmol/L [facility] Urea nitrogen [Mass/Vol] 12 mg/dL 7 - 21 mg/dL [facility] No Panel Informationon 11-10 [facility] CBC W Auto Differential pane l (Bld)on 10-18-2022 Basophils (Bld) [#/Vol] <0.11 k/uL [facility] Basophils/100 WBC (Bld) 0.5 % [facility] Differential cell count method Nom (Bld) Auto [facility] Eosinophils (Bld) [#/Vol] 0.25 10*3/uL <0.46 k/uL [facility] Eosinophils/100 WBC (Bld) 6.5 % [facility] Erythrocyte distribution width (RBC) [Ratio] 15.2 % High 11.5 - 15.0 % [facility] Hematocrit (Bld) [Volume fraction] 36.4 % 36.0 - 46.0 % [facility] Hemoglobin (Bld) [Mass/Vol] 12.6 g/dL 11.5 - 15.5 g/dL [facility] Immature granulocytes (Bld) [#/Vol] <0.10 k/uL [facility] Immature granulocytes/100 WBC (Bld) 0.3 % [facility] Lymphocytes (Bld) [#/Vol] 1.15 10*3/uL 1.00 - 4.00 k/uL [facility] Lymphocytes/100 WBC (Bld) 29.8 % [facility] MCH (RBC) [Entitic mass] 36.8 pg High 26.0 - 34.0 pg [facility] MCHC (RBC) [Mass/Vol] 34.6 g/dL 30.5 - 36.0 g/dL [facility] MCV (RBC) [Entitic vol] 106.4 fL High 80.0 - 100.0 fL [facility] Monocytes (Bld) [#/Vol] 0.41 10*3/uL <0.87 k/uL [facility] Monocytes/100 WBC (Bld) 10.6 % [facility] Neutrophils (Bld) [#/Vol] 2.02 10*3/uL 1.45 - 7.50 k/uL [facility] Neutrophils/100 WBC (Bld) 52.3 % [facility] Nucleated RBC (Bld) [#/Vol] <0.01 k/uL [facility] Nucleated RBC/100 WBC (Bld) [Ratio] 0.0 /100 WBC [facility] Platelet mean volume (Bld) [Entitic vol] 9.3 fL 9.0 - 12.7 fL [facility] Platelets (Bld) [#/Vol] 173 10*3/uL 150 - 400 k/uL [facility] RBC (Bld) [#/Vol] 3.42 10*6/uL Low 3.90 - 5.2 0 m/uL [facility] WBC (Bld) [#/Vol] 3.86 10*3/uL 3.70 - 11. 00 k/uL [facility] Comprehensive metabolic 2000 panelon 10-18-2022 Albumin [Mass/Vol] 3.9 g/dL 3.9 - 4.9 g/dL [facility] ALP [Catalytic activity/Vol] 204 U/L High 34 - 123 U/L [facility] ALT [Catalytic activity/Vol] 25 U/L 7 - 38 U/L [facility] Anion gap [Moles/Vol] 7 mmol/L Low 9 - 18 mmol/L [facility] AST [Catalytic activity/Vol] 39 U/L High 13 - 35 U/L [facility] Bilirubin [Mass/Vol] 0.5 mg/dL 0.2 - 1 .3 mg/dL [facility] Calcium [Mass/Vol] 9.8 mg/dL 8.5 - 10. 2 mg/dL [facility] Chloride [Moles/Vol] 105 mmol/L 97 - 10 5 mmol/L [facility] CO2 [Moles/Vol] 27 mmol/L 22 - 30 mmol/L [facility] Creatinine [Mass/Vol] 0.90 mg/dL 0.58 - 0.96 mg/dL [facility] Estimated Glomerular Filtration Rate 69 mL/min/1.73m >=60 mL/min/1.73m [facility] Glucose [Mass/Vol] 99 mg/dL 74 - 99 mg/dL [facility] Potassium [Moles/Vol] 4.0 mmol/L 3.7 - 5.1 mmol/L [facility] Protein [Mass/Vol] 6.1 g/dL Low 6.3 - 8.0 g/dL [facility] Sodium [Moles/Vol] 139 mmol/L 136 - 144 mmol/L [facility] Urea nitrogen [Mass/Vol] 13 mg/dL 7 - 21 mg/dL [facility] No Panel Informationon 10-18 [facility] CBC W Auto Differential pane l (Bld)on 09-30-2022 Basophils (Bld) [#/Vol] 0.03 10*3/uL <0.11 k/uL [facility] Basophils/100 WBC (Bld) 0.9 % [facility] Differential cell count method Nom (Bld) Auto [facility] Eosinophils (Bld) [#/Vol] 0.22 10*3/uL <0.46 k/uL [facility] Eosinophils/100 WBC (Bld) 6.7 % [facility] Erythrocyte distribution width (RBC) [Ratio] 15.6 % High 11.5 - 15.0 % [facility] Hematocrit (Bld) [Volume fraction] 36.9 % 36.0 - 46.0 % [facility] Hemoglobin (Bld) [Mass/Vol] 12.5 g/dL 11.5 - 15.5 g/dL [facility] Immature granulocytes (Bld) [#/Vol] <0.10 k/uL [facility] Immature granulocytes/100 WBC (Bld) 0.0 % [facility] Lymphocytes (Bld) [#/Vol] 0.94 10*3/uL Low 1.00 - 4.00 k/uL [facility] Lymphocytes/100 WBC (Bld) 28.7 % [facility] MCH (RBC) [Entitic mass] 36.5 pg High 26.0 - 34.0 pg [facility] MCHC (RBC) [Mass/Vol] 33.9 g/dL 30.5 - 36.0 g/dL [facility] MCV (RBC) [Entitic vol] 107.9 fL High 80.0 - 100.0 fL [facility] Monocytes (Bld) [#/Vol] 0.47 10*3/uL <0.87 k/uL [facility] Monocytes/100 WBC (Bld) 14.4 % [facility] Neutrophils (Bld) [#/Vol] 1.61 10*3/uL 1.45 - 7.50 k/uL [facility] Neutrophils/100 WBC (Bld) 49.3 % [facility] Nucleated RBC (Bld) [#/Vol] <0.01 k/uL [facility] Nucleated RBC/100 WBC (Bld) [Ratio] 0.0 /100 WBC [facility] Platelet mean volume (Bld) [Entitic vol] 9.6 fL 9.0 - 12.7 fL [facility] Platelets (Bld) [#/Vol] 200 10*3/uL 150 - 400 k/uL [facility] RBC (Bld) [#/Vol] 3.42 10*6/uL Low 3.90 - 5.2 0 m/uL [facility] WBC (Bld) [#/Vol] 3.27 10*3/uL Low 3.70 - 11. 00 k/uL [facility] Comprehensive metabolic 2000 panelon 09-30-2022 Albumin [Mass/Vol] 3.9 g/dL 3.9 - 4.9 g/dL [facility] ALP [Catalytic activity/Vol] 185 U/L High 34 - 123 U/L [facility] ALT [Catalytic activity/Vol] 23 U/L 7 - 38 U/L [facility] Anion gap [Moles/Vol] 7 mmol/L Low 9 - 18 mmol/L [facility] AST [Catalytic activity/Vol] 40 U/L High 13 - 35 U/L [facility] Bilirubin [Mass/Vol] 0.5 mg/dL 0.2 - 1 .3 mg/dL [facility] Calcium [Mass/Vol] 9.4 mg/dL 8.5 - 10. 2 mg/dL [facility] Chloride [Moles/Vol] 106 mmol/L High 97 - 10 5 mmol/L [facility] CO2 [Moles/Vol] 27 mmol/L 22 - 30 mmol/L [facility] Creatinine [Mass/Vol] 1.02 mg/dL High 0.58 - 0.96 mg/dL [facility] Estimated Glomerular Filtration Rate 60 mL/min/1.73m >=60 mL/min/1.73m [facility] Glucose [Mass/Vol] 110 mg/dL High 74 - 99 mg/dL [facility] Potassium [Moles/Vol] 4.5 mmol/L 3.7 - 5.1 mmol/L [facility] Protein [Mass/Vol] 6.0 g/dL Low 6.3 - 8.0 g/dL [facility] Sodium [Moles/Vol] 140 mmol/L 136 - 144 mmol/L [facility] Urea nitrogen [Mass/Vol] 9 mg/dL 7 - 21 mg/dL [facility] MAXIM DIAG W OMI LEFTon 09-22 [facility] CBC W Auto Differential pane l (Bld)on 09-08-2022 Basophils (Bld) [#/Vol] 0.04 10*3/uL <0.11 k/uL [facility] Basophils/100 WBC (Bld) 1.0 % [facility] Differential cell count method Nom (Bld) Auto [facility] Eosinophils (Bld) [#/Vol] 0.28 10*3/uL <0.46 k/uL [facility] Eosinophils/100 WBC (Bld) 6.7 % [facility] Erythrocyte distribution width (RBC) [Ratio] 15.5 % High 11.5 - 15.0 % [facility] Hematocrit (Bld) [Volume fraction] 36.4 % 36.0 - 46.0 % [facility] Hemoglobin (Bld) [Mass/Vol] 12.2 g/dL 11.5 - 15.5 g/dL [facility] Immature granulocytes (Bld) [#/Vol] <0.10 k/uL [facility] Immature granulocytes/100 WBC (Bld) 0.2 % [facility] Lymphocytes (Bld) [#/Vol] 1.24 10*3/uL 1.00 - 4.00 k/uL [facility] Lymphocytes/100 WBC (Bld) 29.7 % [facility] MCH (RBC) [Entitic mass] 36.1 pg High 26.0 - 34.0 pg [facility] MCHC (RBC) [Mass/Vol] 33.5 g/dL 30.5 - 36.0 g/dL [facility] MCV (RBC) [Entitic vol] 107.7 fL High 80.0 - 100.0 fL [facility] Monocytes (Bld) [#/Vol] 0.54 10*3/uL <0.87 k/uL [facility] Monocytes/100 WBC (Bld) 12.9 % [facility] Neutrophils (Bld) [#/Vol] 2.07 10*3/uL 1.45 - 7.50 k/uL [facility] Neutrophils/100 WBC (Bld) 49.5 % [facility] Nucleated RBC (Bld) [#/Vol] <0.01 k/uL [facility] Nucleated RBC/100 WBC (Bld) [Ratio] 0.0 /100 WBC [facility] Platelet mean volume (Bld) [Entitic vol] 9.9 fL 9.0 - 12.7 fL [facility] Platelets (Bld) [#/Vol] 204 10*3/uL 150 - 400 k/uL [facility] RBC (Bld) [#/Vol] 3.38 10*6/uL Low 3.90 - 5.2 0 m/uL [facility] WBC (Bld) [#/Vol] 4.18 10*3/uL 3.70 - 11. 00 k/uL [facility] Comprehensive metabolic 2000 panelon 09-08-2022 Albumin [Mass/Vol] 3.8 g/dL Low 3.9 - 4.9 g/dL [facility] ALP [Catalytic activity/Vol] 176 U/L High 34 - 123 U/L [facility] ALT [Catalytic activity/Vol] 19 U/L 7 - 38 U/L [facility] Anion gap [Moles/Vol] 7 mmol/L Low 9 - 18 mmol/L [facility] AST [Catalytic activity/Vol] 33 U/L 13 - 35 U/L [facility] Bilirubin [Mass/Vol] 0.4 mg/dL 0.2 - 1 .3 mg/dL [facility] Calcium [Mass/Vol] 9.6 mg/dL 8.5 - 10. 2 mg/dL [facility] Chloride [Moles/Vol] 105 mmol/L 97 - 10 5 mmol/L [facility] CO2 [Moles/Vol] 26 mmol/L 22 - 30 mmol/L [facility] Creatinine [Mass/Vol] 0.87 mg/dL 0.58 - 0.96 mg/dL [facility] Estimated Glomerular Filtration Rate 73 mL/min/1.73m >=60 mL/min/1.73m [facility] Glucose [Mass/Vol] 106 mg/dL High 74 - 99 mg/dL [facility] Potassium [Moles/Vol] 4.1 mmol/L 3.7 - 5.1 mmol/L [facility] Protein [Mass/Vol] 5.8 g/dL Low 6.3 - 8.0 g/dL [facility] Sodium [Moles/Vol] 138 mmol/L 136 - 144 mmol/L [facility] Urea nitrogen [Mass/Vol] 11 mg/dL 7 - 21 mg/dL [facility] MAXIM SCREENING W TOMOon 08-23 [facility] No Panel Informationon 07-27 [facility] CBC W Auto Differential pane l (Bld)on 07-06-2022 Basophils (Bld) [#/Vol] 0.03 10*3/uL <0.11 k/uL [facility] Basophils/100 WBC (Bld) 0.7 % [facility] Differential cell count method Nom (Bld) Auto [facility] Eosinophils (Bld) [#/Vol] 0.24 10*3/uL <0.46 k/uL [facility] Eosinophils/100 WBC (Bld) 5.5 % [facility] Erythrocyte distribution width (RBC) [Ratio] 15.7 % High 11.5 - 15.0 % [facility] Hematocrit (Bld) [Volume fraction] 36.3 % 36.0 - 46.0 % [facility] Hemoglobin (Bld) [Mass/Vol] 12.3 g/dL 11.5 - 15.5 g/dL [facility] Immature granulocytes (Bld) [#/Vol] <0.10 k/uL [facility] Immature granulocytes/100 WBC (Bld) 0.2 % [facility] Lymphocytes (Bld) [#/Vol] 1.55 10*3/uL 1.00 - 4.00 k/uL [facility] Lymphocytes/100 WBC (Bld) 35.3 % [facility] MCH (RBC) [Entitic mass] 35.4 pg High 26.0 - 34.0 pg [facility] MCHC (RBC) [Mass/Vol] 33.9 g/dL 30.5 - 36.0 g/dL [facility] MCV (RBC) [Entitic vol] 104.6 fL High 80.0 - 100.0 fL [facility] Monocytes (Bld) [#/Vol] 0.45 10*3/uL <0.87 k/uL [facility] Monocytes/100 WBC (Bld) 10.3 % [facility] Neutrophils (Bld) [#/Vol] 2.11 10*3/uL 1.45 - 7.50 k/uL [facility] Neutrophils/100 WBC (Bld) 48.0 % [facility] Nucleated RBC (Bld) [#/Vol] <0.01 k/uL [facility] Nucleated RBC/100 WBC (Bld) [Ratio] 0.0 /100 WBC [facility] Platelet mean volume (Bld) [Entitic vol] 9.4 fL 9.0 - 12.7 fL [facility] Platelets (Bld) [#/Vol] 204 10*3/uL 150 - 400 k/uL [facility] RBC (Bld) [#/Vol] 3.47 10*6/uL Low 3.90 - 5.2 0 m/uL [facility] WBC (Bld) [#/Vol] 4.39 10*3/uL 3.70 - 11. 00 k/uL [facility] Comprehensive metabolic 2000 panelon 07-06-2022 Albumin [Mass/Vol] 3.7 g/dL Low 3.9 - 4.9 g/dL [facility] ALP [Catalytic activity/Vol] 185 U/L High 34 - 123 U/L [facility] ALT [Catalytic activity/Vol] 24 U/L 7 - 38 U/L [facility] Anion gap [Moles/Vol] 10 mmol/L 9 - 18 mmol/L [facility] AST [Catalytic activity/Vol] 38 U/L High 13 - 35 U/L [facility] Bilirubin [Mass/Vol] 0.4 mg/dL 0.2 - 1 .3 mg/dL [facility] Calcium [Mass/Vol] 9.3 mg/dL 8.5 - 10. 2 mg/dL [facility] Chloride [Moles/Vol] 104 mmol/L 97 - 10 5 mmol/L [facility] CO2 [Moles/Vol] 29 mmol/L 22 - 30 mmol/L [facility] Creatinine [Mass/Vol] 0.91 mg/dL 0.58 - 0.96 mg/dL [facility] Estimated Glomerular Filtration Rate 69 mL/min/1.73m >=60 mL/min/1.73m [facility] Glucose [Mass/Vol] 142 mg/dL High 74 - 99 mg/dL [facility] Potassium [Moles/Vol] 3.9 mmol/L 3.7 - 5.1 mmol/L [facility] Protein [Mass/Vol] 5.9 g/dL Low 6.3 - 8.0 g/dL [facility] Sodium [Moles/Vol] 143 mmol/L 136 - 144 mmol/L [facility] Urea nitrogen [Mass/Vol] 11 mg/dL 7 - 21 mg/dL [facility] CBC W Auto Differential pane l (Bld)on 06-15-2022 Basophils (Bld) [#/Vol] 0.03 10*3/uL <0.11 k/uL [facility] Basophils/100 WBC (Bld) 0.6 % [facility] Differential cell count method Nom (Bld) Auto [facility] Eosinophils (Bld) [#/Vol] 0.28 10*3/uL <0.46 k/uL [facility] Eosinophils/100 WBC (Bld) 5.3 % [facility] Erythrocyte distribution width (RBC) [Ratio] 15.1 % High 11.5 - 15.0 % [facility] Hematocrit (Bld) [Volume fraction] 37.3 % 36.0 - 46.0 % [facility] Hemoglobin (Bld) [Mass/Vol] 12.7 g/dL 11.5 - 15.5 g/dL [facility] Immature granulocytes (Bld) [#/Vol] <0.10 k/uL [facility] Immature granulocytes/100 WBC (Bld) 0.2 % [facility] Lymphocytes (Bld) [#/Vol] 1.34 10*3/uL 1.00 - 4.00 k/uL [facility] Lymphocytes/100 WBC (Bld) 25.4 % [facility] MCH (RBC) [Entitic mass] 35.8 pg High 26.0 - 34.0 pg [facility] MCHC (RBC) [Mass/Vol] 34.0 g/dL 30.5 - 36.0 g/dL [facility] MCV (RBC) [Entitic vol] 105.1 fL High 80.0 - 100.0 fL [facility] Monocytes (Bld) [#/Vol] 0.51 10*3/uL <0.87 k/uL [facility] Monocytes/100 WBC (Bld) 9.7 % [facility] Neutrophils (Bld) [#/Vol] 3.10 10*3/uL 1.45 - 7.50 k/uL [facility] Neutrophils/100 WBC (Bld) 58.8 % [facility] Nucleated RBC (Bld) [#/Vol] <0.01 k/uL [facility] Nucleated RBC/100 WBC (Bld) [Ratio] 0.0 /100 WBC [facility] Platelet mean volume (Bld) [Entitic vol] 9.7 fL 9.0 - 12.7 fL [facility] Platelets (Bld) [#/Vol] 204 10*3/uL 150 - 400 k/uL [facility] RBC (Bld) [#/Vol] 3.55 10*6/uL Low 3.90 - 5.2 0 m/uL [facility] WBC (Bld) [#/Vol] 5.27 10*3/uL 3.70 - 11. 00 k/uL [facility] Comprehensive metabolic 2000 panelon 06-15-2022 Albumin [Mass/Vol] 3.8 g/dL Low 3.9 - 4.9 g/dL [facility] ALP [Catalytic activity/Vol] 192 U/L High 34 - 123 U/L [facility] ALT [Catalytic activity/Vol] 20 U/L 7 - 38 U/L [facility] Anion gap [Moles/Vol] 8 mmol/L Low 9 - 18 mmol/L [facility] AST [Catalytic activity/Vol] 33 U/L 13 - 35 U/L [facility] Bilirubin [Mass/Vol] 0.3 mg/dL 0.2 - 1 .3 mg/dL [facility] Calcium [Mass/Vol] 10.0 mg/dL 8.5 - 10. 2 mg/dL [facility] Chloride [Moles/Vol] 106 mmol/L High 97 - 10 5 mmol/L [facility] CO2 [Moles/Vol] 27 mmol/L 22 - 30 mmol/L [facility] Creatinine [Mass/Vol] 0.99 mg/dL High 0.58 - 0.96 mg/dL [facility] Estimated Glomerular Filtration Rate 62 mL/min/1.73m >=60 mL/min/1.73m [facility] Glucose [Mass/Vol] 118 mg/dL High 74 - 99 mg/dL [facility] Potassium [Moles/Vol] 4.1 mmol/L 3.7 - 5.1 mmol/L [facility] Protein [Mass/Vol] 6.0 g/dL Low 6.3 - 8.0 g/dL [facility] Sodium [Moles/Vol] 141 mmol/L 136 - 144 mmol/L [facility] Urea nitrogen [Mass/Vol] 15 mg/dL 7 - 21 mg/dL [facility] CBC W Auto Differential pane l (Bld)on 05-25-2022 Basophils (Bld) [#/Vol] 0.03 10*3/uL <0.11 k/uL [facility] Basophils/100 WBC (Bld) 0.6 % [facility] Differential cell count method Nom (Bld) Auto [facility] Eosinophils (Bld) [#/Vol] 0.24 10*3/uL <0.46 k/uL [facility] Eosinophils/100 WBC (Bld) 5.1 % [facility] Erythrocyte distribution width (RBC) [Ratio] 14.9 % 11.5 - 15.0 % [facility] Hematocrit (Bld) [Volume fraction] 35.2 % Low 36.0 - 46.0 % [facility] Hemoglobin (Bld) [Mass/Vol] 12.0 g/dL 11.5 - 15.5 g/dL [facility] Immature granulocytes (Bld) [#/Vol] <0.10 k/uL [facility] Immature granulocytes/100 WBC (Bld) 0.2 % [facility] Lymphocytes (Bld) [#/Vol] 1.32 10*3/uL 1.00 - 4.00 k/uL [facility] Lymphocytes/100 WBC (Bld) 28.0 % [facility] MCH (RBC) [Entitic mass] 35.6 pg High 26.0 - 34.0 pg [facility] MCHC (RBC) [Mass/Vol] 34.1 g/dL 30.5 - 36.0 g/dL [facility] MCV (RBC) [Entitic vol] 104.5 fL High 80.0 - 100.0 fL [facility] Monocytes (Bld) [#/Vol] 0.53 10*3/uL <0.87 k/uL [facility] Monocytes/100 WBC (Bld) 11.2 % [facility] Neutrophils (Bld) [#/Vol] 2.59 10*3/uL 1.45 - 7.50 k/uL [facility] Neutrophils/100 WBC (Bld) 54.9 % [facility] Nucleated RBC (Bld) [#/Vol] <0.01 k/uL [facility] Nucleated RBC/100 WBC (Bld) [Ratio] 0.0 /100 WBC [facility] Platelet mean volume (Bld) [Entitic vol] 9.5 fL 9.0 - 12.7 fL [facility] Platelets (Bld) [#/Vol] 178 10*3/uL 150 - 400 k/uL [facility] RBC (Bld) [#/Vol] 3.37 10*6/uL Low 3.90 - 5.2 0 m/uL [facility] WBC (Bld) [#/Vol] 4.72 10*3/uL 3.70 - 11. 00 k/uL [facility] Comprehensive metabolic 2000 panelon 05-25-2022 Albumin [Mass/Vol] 3.8 g/dL Low 3.9 - 4.9 g/dL [facility] ALP [Catalytic activity/Vol] 166 U/L High 34 - 123 U/L [facility] ALT [Catalytic activity/Vol] 21 U/L 7 - 38 U/L [facility] Anion gap [Moles/Vol] 6 mmol/L Low 9 - 18 mmol/L [facility] AST [Catalytic activity/Vol] 33 U/L 13 - 35 U/L [facility] Bilirubin [Mass/Vol] 0.3 mg/dL 0.2 - 1 .3 mg/dL [facility] Calcium [Mass/Vol] 9.5 mg/dL 8.5 - 10. 2 mg/dL [facility] Chloride [Moles/Vol] 107 mmol/L High 97 - 10 5 mmol/L [facility] CO2 [Moles/Vol] 29 mmol/L 22 - 30 mmol/L [facility] Creatinine [Mass/Vol] 0.93 mg/dL 0.58 - 0.96 mg/dL [facility] Estimated Glomerular Filtration Rate 67 mL/min/1.73m >=60 mL/min/1.73m [facility] Glucose [Mass/Vol] 116 mg/dL High 74 - 99 mg/dL [facility] Potassium [Moles/Vol] 3.6 mmol/L Low 3.7 - 5.1 mmol/L [facility] Protein [Mass/Vol] 5.7 g/dL Low 6.3 - 8.0 g/dL [facility] Sodium [Moles/Vol] 142 mmol/L 136 - 144 mmol/L [facility] Urea nitrogen [Mass/Vol] 16 mg/dL 7 - 21 mg/dL [facility] CBC W Auto Differential pane l (Bld)on 05-06-2022 Basophils (Bld) [#/Vol] 0.04 10*3/uL <0.11 k/uL [facility] Basophils/100 WBC (Bld) 0.9 % [facility] Differential cell count method Nom (Bld) Auto [facility] Eosinophils (Bld) [#/Vol] 0.25 10*3/uL <0.46 k/uL [facility] Eosinophils/100 WBC (Bld) 5.6 % [facility] Erythrocyte distribution width (RBC) [Ratio] 14.8 % 11.5 - 15.0 % [facility] Hematocrit (Bld) [Volume fraction] 37.7 % 36.0 - 46.0 % [facility] Hemoglobin (Bld) [Mass/Vol] 13.2 g/dL 11.5 - 15.5 g/dL [facility] Immature granulocytes (Bld) [#/Vol] <0.10 k/uL [facility] Immature granulocytes/100 WBC (Bld) 0.4 % [facility] Lymphocytes (Bld) [#/Vol] 1.33 10*3/uL 1.00 - 4.00 k/uL [facility] Lymphocytes/100 WBC (Bld) 29.6 % [facility] MCH (RBC) [Entitic mass] 36.9 pg High 26.0 - 34.0 pg [facility] MCHC (RBC) [Mass/Vol] 35.0 g/dL 30.5 - 36.0 g/dL [facility] MCV (RBC) [Entitic vol] 105.3 fL High 80.0 - 100.0 fL [facility] Monocytes (Bld) [#/Vol] 0.43 10*3/uL <0.87 k/uL [facility] Monocytes/100 WBC (Bld) 9.6 % [facility] Neutrophils (Bld) [#/Vol] 2.43 10*3/uL 1.45 - 7.50 k/uL [facility] Neutrophils/100 WBC (Bld) 53.9 % [facility] Nucleated RBC (Bld) [#/Vol] <0.01 k/uL [facility] Nucleated RBC/100 WBC (Bld) [Ratio] 0.0 /100 WBC [facility] Platelet mean volume (Bld) [Entitic vol] 9.2 fL 9.0 - 12.7 fL [facility] Platelets (Bld) [#/Vol] 221 10*3/uL 150 - 400 k/uL [facility] RBC (Bld) [#/Vol] 3.58 10*6/uL Low 3.90 - 5.2 0 m/uL [facility] WBC (Bld) [#/Vol] 4.50 10*3/uL 3.70 - 11. 00 k/uL [facility] Comprehensive metabolic 2000 panelon 05-06-2022 Albumin [Mass/Vol] 3.9 g/dL 3.9 - 4.9 g/dL [facility] ALP [Catalytic activity/Vol] 183 U/L High 34 - 123 U/L [facility] ALT [Catalytic activity/Vol] 18 U/L 7 - 38 U/L [facility] Anion gap [Moles/Vol] 6 mmol/L Low 9 - 18 mmol/L [facility] AST [Catalytic activity/Vol] 33 U/L 13 - 35 U/L [facility] Bilirubin [Mass/Vol] 0.4 mg/dL 0.2 - 1 .3 mg/dL [facility] Calcium [Mass/Vol] 9.3 mg/dL 8.5 - 10. 2 mg/dL [facility] Chloride [Moles/Vol] 106 mmol/L High 97 - 10 5 mmol/L [facility] CO2 [Moles/Vol] 28 mmol/L 22 - 30 mmol/L [facility] Creatinine [Mass/Vol] 0.87 mg/dL 0.58 - 0.96 mg/dL [facility] Estimated Glomerular Filtration Rate 73 mL/min/1.73m >=60 mL/min/1.73m [facility] Glucose [Mass/Vol] 112 mg/dL High 74 - 99 mg/dL [facility] Potassium [Moles/Vol] 3.6 mmol/L Low 3.7 - 5.1 mmol/L [facility] Protein [Mass/Vol] 6.0 g/dL Low 6.3 - 8.0 g/dL [facility] Sodium [Moles/Vol] 140 mmol/L 136 - 144 mmol/L [facility] Urea nitrogen [Mass/Vol] 14 mg/dL 7 - 21 mg/dL [facility] No Panel Informationon 04-26 [facility] CBC W Auto Differential pane l (Bld)on 04-14-2022 Basophils (Bld) [#/Vol] 0.05 10*3/uL <0.11 k/uL [facility] Basophils/100 WBC (Bld) 1.1 % [facility] Differential cell count method Nom (Bld) Auto [facility] Eosinophils (Bld) [#/Vol] 0.25 10*3/uL <0.46 k/uL [facility] Eosinophils/100 WBC (Bld) 5.4 % [facility] Erythrocyte distribution width (RBC) [Ratio] 14.8 % 11.5 - 15.0 % [facility] Hematocrit (Bld) [Volume fraction] 37.0 % 36.0 - 46.0 % [facility] Hemoglobin (Bld) [Mass/Vol] 12.3 g/dL 11.5 - 15.5 g/dL [facility] Immature granulocytes (Bld) [#/Vol] <0.10 k/uL [facility] Immature granulocytes/100 WBC (Bld) 0.2 % [facility] Lymphocytes (Bld) [#/Vol] 1.47 10*3/uL 1.00 - 4.00 k/uL [facility] Lymphocytes/100 WBC (Bld) 31.7 % [facility] MCH (RBC) [Entitic mass] 35.4 pg High 26.0 - 34.0 pg [facility] MCHC (RBC) [Mass/Vol] 33.2 g/dL 30.5 - 36.0 g/dL [facility] MCV (RBC) [Entitic vol] 106.6 fL High 80.0 - 100.0 fL [facility] Monocytes (Bld) [#/Vol] 0.52 10*3/uL <0.87 k/uL [facility] Monocytes/100 WBC (Bld) 11.2 % [facility] Neutrophils (Bld) [#/Vol] 2.33 10*3/uL 1.45 - 7.50 k/uL [facility] Neutrophils/100 WBC (Bld) 50.4 % [facility] Nucleated RBC (Bld) [#/Vol] <0.01 k/uL [facility] Nucleated RBC/100 WBC (Bld) [Ratio] 0.0 /100 WBC [facility] Platelet mean volume (Bld) [Entitic vol] 9.7 fL 9.0 - 12.7 fL [facility] Platelets (Bld) [#/Vol] 172 10*3/uL 150 - 400 k/uL [facility] RBC (Bld) [#/Vol] 3.47 10*6/uL Low 3.90 - 5.2 0 m/uL [facility] WBC (Bld) [#/Vol] 4.63 10*3/uL 3.70 - 11. 00 k/uL [facility] Comprehensive metabolic 2000 panelon 04-14-2022 Albumin [Mass/Vol] 3.7 g/dL Low 3.9 - 4.9 g/dL [facility] ALP [Catalytic activity/Vol] 168 U/L High 34 - 123 U/L [facility] ALT [Catalytic activity/Vol] 18 U/L 7 - 38 U/L [facility] Anion gap [Moles/Vol] 8 mmol/L Low 9 - 18 mmol/L [facility] AST [Catalytic activity/Vol] 34 U/L 13 - 35 U/L [facility] Bilirubin [Mass/Vol] 0.3 mg/dL 0.2 - 1 .3 mg/dL [facility] Calcium [Mass/Vol] 9.1 mg/dL 8.5 - 10. 2 mg/dL [facility] Chloride [Moles/Vol] 107 mmol/L High 97 - 10 5 mmol/L [facility] CO2 [Moles/Vol] 27 mmol/L 22 - 30 mmol/L [facility] Creatinine [Mass/Vol] 0.88 mg/dL 0.58 - 0.96 mg/dL [facility] Estimated Glomerular Filtration Rate 72 mL/min/1.73m >=60 mL/min/1.73m [facility] Glucose [Mass/Vol] 99 mg/dL 74 - 99 mg/dL [facility] Potassium [Moles/Vol] 3.7 mmol/L 3.7 - 5.1 mmol/L [facility] Protein [Mass/Vol] 5.8 g/dL Low 6.3 - 8.0 g/dL [facility] Sodium [Moles/Vol] 142 mmol/L 136 - 144 mmol/L [facility] Urea nitrogen [Mass/Vol] 13 mg/dL 7 - 21 mg/dL [facility] CBC W Auto Differential pane l (Bld)on 03-18-2022 Abs Immature Gran <0.10 k/uL [facility] Basophils (Bld) [#/Vol] 0.03 10*3/uL <0.11 k/uL [facility] Basophils/100 WBC (Bld) 0.7 % [facility] Differential cell count method Nom (Bld) Auto [facility] Eosinophils (Bld) [#/Vol] 0.24 10*3/uL <0.46 k/uL [facility] Eosinophils/100 WBC (Bld) 5.6 % [facility] Erythrocyte distribution width (RBC) [Ratio] 15.2 % High 11.5 - 15.0 % [facility] Hematocrit (Bld) [Volume fraction] 36.3 % 36.0 - 46.0 % [facility] Hemoglobin (Bld) [Mass/Vol] 12.1 g/dL 11.5 - 15.5 g/dL [facility] Immature Gran % 0.2 % [facility] Lymphocytes (Bld) [#/Vol] 1.26 10*3/uL 1.00 - 4.00 k/uL [facility] Lymphocytes/100 WBC (Bld) 29.4 % [facility] MCH (RBC) [Entitic mass] 35.6 pg High 26.0 - 34.0 pg [facility] MCHC (RBC) [Mass/Vol] 33.3 g/dL 30.5 - 36.0 g/dL [facility] MCV (RBC) [Entitic vol] 106.8 fL High 80.0 - 100.0 fL [facility] Monocytes (Bld) [#/Vol] 0.53 10*3/uL <0.87 k/uL [facility] Monocytes/100 WBC (Bld) 12.4 % [facility] Neutrophils (Bld) [#/Vol] 2.22 10*3/uL 1.45 - 7.50 k/uL [facility] Neutrophils/100 WBC (Bld) 51.7 % [facility] Nucleated RBC (Bld) [#/Vol] <0.01 k/uL [facility] Nucleated RBC/100 WBC (Bld) [Ratio] 0.0 /100 WBC [facility] Platelet mean volume (Bld) [Entitic vol] 9.5 fL 9.0 - 12.7 fL [facility] Platelets (Bld) [#/Vol] 195 10*3/uL 150 - 400 k/uL [facility] RBC (Bld) [#/Vol] 3.40 10*6/uL Low 3.90 - 5.2 0 m/uL [facility] WBC (Bld) [#/Vol] 4.29 10*3/uL 3.70 - 11. 00 k/uL [facility] Comprehensive metabolic 2000 panelon 03-18-2022 Albumin [Mass/Vol] 3.8 g/dL Low 3.9 - 4.9 g/dL [facility] ALP [Catalytic activity/Vol] 188 U/L High 34 - 123 U/L [facility] ALT [Catalytic activity/Vol] 23 U/L 7 - 38 U/L [facility] Anion gap [Moles/Vol] 8 mmol/L Low 9 - 18 mmol/L [facility] AST [Catalytic activity/Vol] 38 U/L High 13 - 35 U/L [facility] Bilirubin [Mass/Vol] 0.3 mg/dL 0.2 - 1 .3 mg/dL [facility] Calcium [Mass/Vol] 9.2 mg/dL 8.5 - 10. 2 mg/dL [facility] Chloride [Moles/Vol] 107 mmol/L High 97 - 10 5 mmol/L [facility] CO2 [Moles/Vol] 26 mmol/L 22 - 30 mmol/L [facility] Creatinine [Mass/Vol] 0.85 mg/dL 0.58 - 0.96 mg/dL [facility] Estimated Glomerular Filtration Rate 75 mL/min/1.73m >=60 mL/min/1.73m [facility] Glucose [Mass/Vol] 96 mg/dL 74 - 99 mg/dL [facility] Potassium [Moles/Vol] 4.0 mmol/L 3.7 - 5.1 mmol/L [facility] Protein [Mass/Vol] 5.8 g/dL Low 6.3 - 8.0 g/dL [facility] Sodium [Moles/Vol] 141 mmol/L 136 - 144 mmol/L [facility] Urea nitrogen [Mass/Vol] 11 mg/dL 7 - 21 mg/dL [facility] CBC W Auto Differential pane l (Bld)on 02-24-2022 Abs Immature Gran <0.10 k/uL [facility] Basophils (Bld) [#/Vol] <0.11 k/uL [facility] Basophils/100 WBC (Bld) 0.5 % [facility] Differential cell count method Nom (Bld) Auto [facility] Eosinophils (Bld) [#/Vol] 0.26 10*3/uL <0.46 k/uL [facility] Eosinophils/100 WBC (Bld) 6.1 % [facility] Erythrocyte distribution width (RBC) [Ratio] 15.1 % High 11.5 - 15.0 % [facility] Hematocrit (Bld) [Volume fraction] 35.4 % Low 36.0 - 46.0 % [facility] Hemoglobin (Bld) [Mass/Vol] 12.1 g/dL 11.5 - 15.5 g/dL [facility] Immature Gran % 0.0 % [facility] Lymphocytes (Bld) [#/Vol] 1.59 10*3/uL 1.00 - 4.00 k/uL [facility] Lymphocytes/100 WBC (Bld) 37.2 % [facility] MCH (RBC) [Entitic mass] 35.8 pg High 26.0 - 34.0 pg [facility] MCHC (RBC) [Mass/Vol] 34.2 g/dL 30.5 - 36.0 g/dL [facility] MCV (RBC) [Entitic vol] 104.7 fL High 80.0 - 100.0 fL [facility] Monocytes (Bld) [#/Vol] 0.47 10*3/uL <0.87 k/uL [facility] Monocytes/100 WBC (Bld) 11.0 % [facility] Neutrophils (Bld) [#/Vol] 1.93 10*3/uL 1.45 - 7.50 k/uL [facility] Neutrophils/100 WBC (Bld) 45.2 % [facility] Nucleated RBC (Bld) [#/Vol] <0.01 k/uL [facility] Nucleated RBC/100 WBC (Bld) [Ratio] 0.0 /100 WBC [facility] Platelet mean volume (Bld) [Entitic vol] 9.2 fL 9.0 - 12.7 fL [facility] Platelets (Bld) [#/Vol] 204 10*3/uL 150 - 400 k/uL [facility] RBC (Bld) [#/Vol] 3.38 10*6/uL Low 3.90 - 5.2 0 m/uL [facility] WBC (Bld) [#/Vol] 4.27 10*3/uL 3.70 - 11. 00 k/uL [facility] Comprehensive metabolic 2000 panelon 02-24-2022 Albumin [Mass/Vol] 3.7 g/dL Low 3.9 - 4.9 g/dL [facility] ALP [Catalytic activity/Vol] 177 U/L High 34 - 123 U/L [facility] ALT [Catalytic activity/Vol] 20 U/L 7 - 38 U/L [facility] Anion gap [Moles/Vol] 9 mmol/L 9 - 18 mmol/L [facility] AST [Catalytic activity/Vol] 32 U/L 13 - 35 U/L [facility] Bilirubin [Mass/Vol] 0.3 mg/dL 0.2 - 1 .3 mg/dL [facility] Calcium [Mass/Vol] 9.5 mg/dL 8.5 - 10. 2 mg/dL [facility] Chloride [Moles/Vol] 105 mmol/L 97 - 10 5 mmol/L [facility] CO2 [Moles/Vol] 27 mmol/L 22 - 30 mmol/L [facility] Creatinine [Mass/Vol] 0.91 mg/dL 0.58 - 0.96 mg/dL [facility] Estimated Glomerular Filtration Rate 69 mL/min/1.73m >=60 mL/min/1.73m [facility] Glucose [Mass/Vol] 102 mg/dL High 74 - 99 mg/dL [facility] Potassium [Moles/Vol] 3.7 mmol/L 3.7 - 5.1 mmol/L [facility] Protein [Mass/Vol] 5.8 g/dL Low 6.3 - 8.0 g/dL [facility] Sodium [Moles/Vol] 141 mmol/L 136 - 144 mmol/L [facility] Urea nitrogen [Mass/Vol] 10 mg/dL 7 - 21 mg/dL [facility] CBC W Auto Differential pane l (Bld)on 02-03-2022 Abs Immature Gran <0.10 k/uL [facility] Basophils (Bld) [#/Vol] <0.11 k/uL [facility] Basophils/100 WBC (Bld) 0.5 % [facility] Differential cell count method Nom (Bld) Auto [facility] Eosinophils (Bld) [#/Vol] 0.26 10*3/uL <0.46 k/uL [facility] Eosinophils/100 WBC (Bld) 5.9 % [facility] Erythrocyte distribution width (RBC) [Ratio] 14.9 % 11.5 - 15.0 % [facility] Hematocrit (Bld) [Volume fraction] 35.8 % Low 36.0 - 46.0 % [facility] Hemoglobin (Bld) [Mass/Vol] 12.0 g/dL 11.5 - 15.5 g/dL [facility] Immature Gran % 0.2 % [facility] Lymphocytes (Bld) [#/Vol] 1.50 10*3/uL 1.00 - 4.00 k/uL [facility] Lymphocytes/100 WBC (Bld) 34.0 % [facility] MCH (RBC) [Entitic mass] 34.9 pg High 26.0 - 34.0 pg [facility] MCHC (RBC) [Mass/Vol] 33.5 g/dL 30.5 - 36.0 g/dL [facility] MCV (RBC) [Entitic vol] 104.1 fL High 80.0 - 100.0 fL [facility] Monocytes (Bld) [#/Vol] 0.51 10*3/uL <0.87 k/uL [facility] Monocytes/100 WBC (Bld) 11.6 % [facility] Neutrophils (Bld) [#/Vol] 2.11 10*3/uL 1.45 - 7.50 k/uL [facility] Neutrophils/100 WBC (Bld) 47.8 % [facility] Nucleated RBC (Bld) [#/Vol] <0.01 k/uL [facility] Nucleated RBC/100 WBC (Bld) [Ratio] 0.0 /100 WBC [facility] Platelet mean volume (Bld) [Entitic vol] 9.4 fL 9.0 - 12.7 fL [facility] Platelets (Bld) [#/Vol] 228 10*3/uL 150 - 400 k/uL [facility] RBC (Bld) [#/Vol] 3.44 10*6/uL Low 3.90 - 5.2 0 m/uL [facility] WBC (Bld) [#/Vol] 4.41 10*3/uL 3.70 - 11. 00 k/uL [facility] Comprehensive metabolic 2000 panelon 02-03-2022 Albumin [Mass/Vol] 3.7 g/dL Low 3.9 - 4.9 g/dL [facility] ALP [Catalytic activity/Vol] 186 U/L High 34 - 123 U/L [facility] ALT [Catalytic activity/Vol] 19 U/L 7 - 38 U/L [facility] Anion gap [Moles/Vol] 11 mmol/L 9 - 18 mmol/L [facility] AST [Catalytic activity/Vol] 32 U/L 13 - 35 U/L [facility] Bilirubin [Mass/Vol] 0.3 mg/dL 0.2 - 1 .3 mg/dL [facility] Calcium [Mass/Vol] 9.3 mg/dL 8.5 - 10. 2 mg/dL [facility] Chloride [Moles/Vol] 105 mmol/L 97 - 10 5 mmol/L [facility] CO2 [Moles/Vol] 24 mmol/L 22 - 30 mmol/L [facility] Creatinine [Mass/Vol] 0.93 mg/dL 0.58 - 0.96 mg/dL [facility] Estimated Glomerular Filtration Rate 67 mL/min/1.73m >=60 mL/min/1.73m [facility] Glucose [Mass/Vol] 100 mg/dL High 74 - 99 mg/dL [facility] Potassium [Moles/Vol] 3.8 mmol/L 3.7 - 5.1 mmol/L [facility] Protein [Mass/Vol] 6.0 g/dL Low 6.3 - 8.0 g/dL [facility] Sodium [Moles/Vol] 140 mmol/L 136 - 144 mmol/L [facility] Urea nitrogen [Mass/Vol] 12 mg/dL 7 - 21 mg/dL [facility] CBC W Auto Differential pane l (Bld)on 01-07-2022 Abs Immature Gran 0.03 k/uL <0.10 k/uL [facility] Basophils (Bld) [#/Vol] 0.03 10*3/uL <0.11 k/uL [facility] Basophils/100 WBC (Bld) 0.3 % [facility] Differential cell count method Nom (Bld) Auto [facility] Eosinophils (Bld) [#/Vol] 0.20 10*3/uL <0.46 k/uL [facility] Eosinophils/100 WBC (Bld) 2.3 % [facility] Erythrocyte distribution width (RBC) [Ratio] 15.2 % High 11.5 - 15.0 % [facility] Hematocrit (Bld) [Volume fraction] 33.9 % Low 36.0 - 46.0 % [facility] Hemoglobin (Bld) [Mass/Vol] 11.6 g/dL 11.5 - 15.5 g/dL [facility] Immature Gran % 0.3 % [facility] Lymphocytes (Bld) [#/Vol] 1.17 10*3/uL 1.00 - 4.00 k/uL [facility] Lymphocytes/100 WBC (Bld) 13.4 % [facility] MCH (RBC) [Entitic mass] 35.3 pg High 26.0 - 34.0 pg [facility] MCHC (RBC) [Mass/Vol] 34.2 g/dL 30.5 - 36.0 g/dL [facility] MCV (RBC) [Entitic vol] 103.0 fL High 80.0 - 100.0 fL [facility] Monocytes (Bld) [#/Vol] 0.45 10*3/uL <0.87 k/uL [facility] Monocytes/100 WBC (Bld) 5.2 % [facility] Neutrophils (Bld) [#/Vol] 6.83 10*3/uL 1.45 - 7.50 k/uL [facility] Neutrophils/100 WBC (Bld) 78.5 % [facility] Nucleated RBC (Bld) [#/Vol] 10*3/uL <0.01 k/uL [facility] Nucleated RBC/100 WBC (Bld) [Ratio] 0.0 /100 WBC [facility] Platelet mean volume (Bld) [Entitic vol] 9.3 fL 9.0 - 12.7 fL [facility] Platelets (Bld) [#/Vol] 198 10*3/uL 150 - 400 k/uL [facility] RBC (Bld) [#/Vol] 3.29 10*6/uL Low 3.90 - 5.2 0 m/uL [facility] WBC (Bld) [#/Vol] 8.71 10*3/uL 3.70 - 11. 00 k/uL [facility] Comprehensive metabolic 2000 panelon 01-07-2022 Albumin [Mass/Vol] 3.7 g/dL Low 3.9 - 4.9 g/dL [facility] ALP [Catalytic activity/Vol] 182 U/L High 34 - 123 U/L [facility] ALT [Catalytic activity/Vol] 23 U/L 7 - 38 U/L [facility] Anion gap [Moles/Vol] 11 mmol/L 9 - 18 mmol/L [facility] AST [Catalytic activity/Vol] 35 U/L 13 - 35 U/L [facility] Bilirubin [Mass/Vol] 0.4 mg/dL 0.2 - 1 .3 mg/dL [facility] Calcium [Mass/Vol] 8.5 mg/dL 8.5 - 10. 2 mg/dL [facility] Chloride [Moles/Vol] 107 mmol/L High 97 - 10 5 mmol/L [facility] CO2 [Moles/Vol] 22 mmol/L 22 - 30 mmol/L [facility] Creatinine [Mass/Vol] 1.04 mg/dL High 0.58 - 0.96 mg/dL [facility] Estimated Glomerular Filtration Rate 59 mL/min/1.73m Low >=60 mL/min/1.73m [facility] Glucose [Mass/Vol] 99 mg/dL 74 - 99 mg/dL [facility] Potassium [Moles/Vol] 4.2 mmol/L 3.7 - 5.1 mmol/L [facility] Protein [Mass/Vol] 6.0 g/dL Low 6.3 - 8.0 g/dL [facility] Sodium [Moles/Vol] 140 mmol/L 136 - 144 mmol/L [facility] Urea nitrogen [Mass/Vol] 13 mg/dL 7 - 21 mg/dL [facility] CBC W Auto Differential pane l (Bld)on 12-23-2021 Abs Immature Gran <0.03 <0.10 k/uL [facility] Basophils (Bld) [#/Vol] 0.04 10*3/uL <0.11 k/uL [facility] Basophils/100 WBC (Bld) 1.1 % [facility] Differential cell count method Nom (Bld) Auto [facility] Eosinophils (Bld) [#/Vol] 0.26 10*3/uL <0.46 k/uL [facility] Eosinophils/100 WBC (Bld) 6.9 % [facility] Erythrocyte distribution width (RBC) [Ratio] 16.2 % High 11.5 - 15.0 % [facility] Hematocrit (Bld) [Volume fraction] 34.1 % Low 36.0 - 46.0 % [facility] Hemoglobin (Bld) [Mass/Vol] 11.5 g/dL 11.5 - 15.5 g/dL [facility] Immature Gran % 0.3 % [facility] Lymphocytes (Bld) [#/Vol] 1.22 10*3/uL 1.00 - 4.00 k/uL [facility] Lymphocytes/100 WBC (Bld) 32.4 % [facility] MCH (RBC) [Entitic mass] 34.7 pg High 26.0 - 34.0 pg [facility] MCHC (RBC) [Mass/Vol] 33.7 g/dL 30.5 - 36.0 g/dL [facility] MCV (RBC) [Entitic vol] 103.0 fL High 80.0 - 100.0 fL [facility] Monocytes (Bld) [#/Vol] 0.43 10*3/uL <0.87 k/uL [facility] Monocytes/100 WBC (Bld) 11.4 % [facility] Neutrophils (Bld) [#/Vol] 1.80 10*3/uL 1.45 - 7.50 k/uL [facility] Neutrophils/100 WBC (Bld) 47.9 % [facility] Nucleated RBC (Bld) [#/Vol] 10*3/uL <0.01 k/uL [facility] Nucleated RBC/100 WBC (Bld) [Ratio] 0.0 /100 WBC [facility] Platelet mean volume (Bld) [Entitic vol] 9.5 fL 9.0 - 12.7 fL [facility] Platelets (Bld) [#/Vol] 209 10*3/uL 150 - 400 k/uL [facility] RBC (Bld) [#/Vol] 3.31 10*6/uL Low 3.90 - 5.2 0 m/uL [facility] WBC (Bld) [#/Vol] 3.76 10*3/uL 3.70 - 11. 00 k/uL [facility] Comprehensive metabolic 2000 panelon 12-23-2021 Albumin [Mass/Vol] 3.7 g/dL Low 3.9 - 4.9 g/dL [facility] ALP [Catalytic activity/Vol] 144 U/L High 34 - 123 U/L [facility] ALT [Catalytic activity/Vol] 20 U/L 7 - 38 U/L [facility] Anion gap [Moles/Vol] 9 mmol/L 9 - 18 mmol/L [facility] AST [Catalytic activity/Vol] 35 U/L 13 - 35 U/L [facility] Bilirubin [Mass/Vol] 0.2 mg/dL 0.2 - 1 .3 mg/dL [facility] Calcium [Mass/Vol] 9.5 mg/dL 8.5 - 10. 2 mg/dL [facility] Chloride [Moles/Vol] 108 mmol/L High 97 - 10 5 mmol/L [facility] CO2 [Moles/Vol] 25 mmol/L 22 - 30 mmol/L [facility] Creatinine [Mass/Vol] 0.93 mg/dL 0.58 - 0.96 mg/dL [facility] Estimated Glomerular Filtration Rate 67 mL/min/1.73m >=60 mL/min/1.73m [facility] Glucose [Mass/Vol] 91 mg/dL 74 - 99 mg/dL [facility] Potassium [Moles/Vol] 4.3 mmol/L 3.7 - 5.1 mmol/L [facility] Protein [Mass/Vol] 6.1 g/dL Low 6.3 - 8.0 g/dL [facility] Sodium [Moles/Vol] 142 mmol/L 136 - 144 mmol/L [facility] Urea nitrogen [Mass/Vol] 12 mg/dL 7 - 21 mg/dL [facility] CBC W Auto Differential pane l (Bld)on 12-02-2021 Abs Immature Gran <0.03 <0.10 k/uL [facility] Basophils (Bld) [#/Vol] 0.03 10*3/uL <0.11 k/uL [facility] Basophils/100 WBC (Bld) 0.8 % [facility] Differential cell count method Nom (Bld) Auto [facility] Eosinophils (Bld) [#/Vol] 0.30 10*3/uL <0.46 k/uL [facility] Eosinophils/100 WBC (Bld) 7.5 % [facility] Erythrocyte distribution width (RBC) [Ratio] 17.7 % High 11.5 - 15.0 % [facility] Hematocrit (Bld) [Volume fraction] 35.5 % Low 36.0 - 46.0 % [facility] Hemoglobin (Bld) [Mass/Vol] 12.0 g/dL 11.5 - 15.5 g/dL [facility] Immature Gran % 0.0 % [facility] Lymphocytes (Bld) [#/Vol] 1.26 10*3/uL 1.00 - 4.00 k/uL [facility] Lymphocytes/100 WBC (Bld) 31.7 % [facility] MCH (RBC) [Entitic mass] 34.3 pg High 26.0 - 34.0 pg [facility] MCHC (RBC) [Mass/Vol] 33.8 g/dL 30.5 - 36.0 g/dL [facility] MCV (RBC) [Entitic vol] 101.4 fL High 80.0 - 100.0 fL [facility] Monocytes (Bld) [#/Vol] 0.44 10*3/uL <0.87 k/uL [facility] Monocytes/100 WBC (Bld) 11.1 % [facility] Neutrophils (Bld) [#/Vol] 1.95 10*3/uL 1.45 - 7.50 k/uL [facility] Neutrophils/100 WBC (Bld) 48.9 % [facility] Nucleated RBC (Bld) [#/Vol] 10*3/uL <0.01 k/uL [facility] Nucleated RBC/100 WBC (Bld) [Ratio] 0.0 /100 WBC [facility] Platelet mean volume (Bld) [Entitic vol] 9.5 fL 9.0 - 12.7 fL [facility] Platelets (Bld) [#/Vol] 223 10*3/uL 150 - 400 k/uL [facility] RBC (Bld) [#/Vol] 3.50 10*6/uL Low 3.90 - 5.2 0 m/uL [facility] WBC (Bld) [#/Vol] 3.98 10*3/uL 3.70 - 11. 00 k/uL [facility] Comprehensive metabolic 2000 panelon 12-02-2021 Albumin [Mass/Vol] 3.8 g/dL Low 3.9 - 4.9 g/dL [facility] ALP [Catalytic activity/Vol] 140 U/L High 34 - 123 U/L [facility] ALT [Catalytic activity/Vol] 21 U/L 7 - 38 U/L [facility] Anion gap [Moles/Vol] 10 mmol/L 9 - 18 mmol/L [facility] AST [Catalytic activity/Vol] 36 U/L High 13 - 35 U/L [facility] Bilirubin [Mass/Vol] 0.3 mg/dL 0.2 - 1 .3 mg/dL [facility] Calcium [Mass/Vol] 8.7 mg/dL 8.5 - 10. 2 mg/dL [facility] Chloride [Moles/Vol] 106 mmol/L High 97 - 10 5 mmol/L [facility] CO2 [Moles/Vol] 25 mmol/L 22 - 30 mmol/L [facility] Creatinine [Mass/Vol] 0.92 mg/dL 0.58 - 0.96 mg/dL [facility] Estimated Glomerular Filtration Rate 68 mL/min/1.73m >=60 mL/min/1.73m [facility] Glucose [Mass/Vol] 96 mg/dL 74 - 99 mg/dL [facility] Potassium [Moles/Vol] 3.8 mmol/L 3.7 - 5.1 mmol/L [facility] Protein [Mass/Vol] 6.0 g/dL Low 6.3 - 8.0 g/dL [facility] Sodium [Moles/Vol] 141 mmol/L 136 - 144 mmol/L [facility] Urea nitrogen [Mass/Vol] 10 mg/dL 7 - 21 mg/dL [facility] CBC W Auto Differential pane l (Bld)on 11-06-2021 Abs Immature Gran <0.03 <0.10 k/uL [facility] Basophils (Bld) [#/Vol] 0.03 10*3/uL <0.11 k/uL [facility] Basophils/100 WBC (Bld) 0.6 % [facility] Differential cell count method Nom (Bld) Auto [facility] Eosinophils (Bld) [#/Vol] 0.35 10*3/uL <0.46 k/uL [facility] Eosinophils/100 WBC (Bld) 6.7 % [facility] Erythrocyte distribution width (RBC) [Ratio] 18.0 % High 11.5 - 15.0 % [facility] Hematocrit (Bld) [Volume fraction] 33.8 % Low 36.0 - 46.0 % [facility] Hemoglobin (Bld) [Mass/Vol] 11.1 g/dL Low 11.5 - 15.5 g/dL [facility] Immature Gran % 0.2 % [facility] Lymphocytes (Bld) [#/Vol] 1.55 10*3/uL 1.00 - 4.00 k/uL [facility] Lymphocytes/100 WBC (Bld) 29.8 % [facility] MCH (RBC) [Entitic mass] 32.1 pg 26.0 - 34.0 pg [facility] MCHC (RBC) [Mass/Vol] 32.8 g/dL 30.5 - 36.0 g/dL [facility] MCV (RBC) [Entitic vol] 97.7 fL 80.0 - 100.0 fL [facility] Monocytes (Bld) [#/Vol] 0.37 10*3/uL <0.87 k/uL [facility] Monocytes/100 WBC (Bld) 7.1 % [facility] Neutrophils (Bld) [#/Vol] 2.90 10*3/uL 1.45 - 7.50 k/uL [facility] Neutrophils/100 WBC (Bld) 55.6 % [facility] Nucleated RBC (Bld) [#/Vol] 10*3/uL <0.01 k/uL [facility] Nucleated RBC/100 WBC (Bld) [Ratio] 0.0 /100 WBC [facility] Platelet mean volume (Bld) [Entitic vol] 9.4 fL 9.0 - 12.7 fL [facility] Platelets (Bld) [#/Vol] 229 10*3/uL 150 - 400 k/uL [facility] RBC (Bld) [#/Vol] 3.46 10*6/uL Low 3.90 - 5.2 0 m/uL [facility] WBC (Bld) [#/Vol] 5.21 10*3/uL 3.70 - 11. 00 k/uL [facility] Comprehensive metabolic 2000 panelon 11-06-2021 Albumin [Mass/Vol] 3.7 g/dL Low 3.9 - 4.9 g/dL [facility] ALP [Catalytic activity/Vol] 144 U/L High 34 - 123 U/L [facility] ALT [Catalytic activity/Vol] 20 U/L 7 - 38 U/L [facility] Anion gap [Moles/Vol] 7 mmol/L Low 9 - 18 mmol/L [facility] AST [Catalytic activity/Vol] 35 U/L 13 - 35 U/L [facility] Bilirubin [Mass/Vol] 0.3 mg/dL 0.2 - 1 .3 mg/dL [facility] Calcium [Mass/Vol] 8.8 mg/dL 8.5 - 10. 2 mg/dL [facility] Chloride [Moles/Vol] 107 mmol/L High 97 - 10 5 mmol/L [facility] CO2 [Moles/Vol] 25 mmol/L 22 - 30 mmol/L [facility] Creatinine [Mass/Vol] 0.93 mg/dL 0.58 - 0.96 mg/dL [facility] Estimated Glomerular Filtration Rate 67 mL/min/1.73m >=60 mL/min/1.73m [facility] Glucose [Mass/Vol] 95 mg/dL 74 - 99 mg/dL [facility] Potassium [Moles/Vol] 4.0 mmol/L 3.7 - 5.1 mmol/L [facility] Protein [Mass/Vol] 6.2 g/dL Low 6.3 - 8.0 g/dL [facility] Sodium [Moles/Vol] 139 mmol/L 136 - 144 mmol/L [facility] Urea nitrogen [Mass/Vol] 9 mg/dL 7 - 21 mg/dL [facility] No Panel Informationon 11-06 [facility] CBC W Auto Differential pane l (Bld)on 10-21-2021 Abs Immature Gran <0.03 <0.10 k/uL [facility] Basophils (Bld) [#/Vol] 0.04 10*3/uL <0.11 k/uL [facility] Basophils/100 WBC (Bld) 0.8 % [facility] Differential cell count method Nom (Bld) Auto [facility] Eosinophils (Bld) [#/Vol] 0.51 10*3/uL High <0.46 k/uL [facility] Eosinophils/100 WBC (Bld) 10.7 % [facility] Erythrocyte distribution width (RBC) [Ratio] 17.4 % High 11.5 - 15.0 % [facility] Hematocrit (Bld) [Volume fraction] 33.4 % Low 36.0 - 46.0 % [facility] Hemoglobin (Bld) [Mass/Vol] 11.2 g/dL Low 11.5 - 15.5 g/dL [facility] Immature Gran % 0.2 % [facility] Lymphocytes (Bld) [#/Vol] 1.42 10*3/uL 1.00 - 4.00 k/uL [facility] Lymphocytes/100 WBC (Bld) 29.9 % [facility] MCH (RBC) [Entitic mass] 31.6 pg 26.0 - 34.0 pg [facility] MCHC (RBC) [Mass/Vol] 33.5 g/dL 30.5 - 36.0 g/dL [facility] MCV (RBC) [Entitic vol] 94.4 fL 80.0 - 100.0 fL [facility] Monocytes (Bld) [#/Vol] 0.45 10*3/uL <0.87 k/uL [facility] Monocytes/100 WBC (Bld) 9.5 % [facility] Neutrophils (Bld) [#/Vol] 2.32 10*3/uL 1.45 - 7.50 k/uL [facility] Neutrophils/100 WBC (Bld) 48.9 % [facility] Nucleated RBC (Bld) [#/Vol] 10*3/uL <0.01 k/uL [facility] Nucleated RBC/100 WBC (Bld) [Ratio] 0.0 /100 WBC [facility] Platelet mean volume (Bld) [Entitic vol] 9.5 fL 9.0 - 12.7 fL [facility] Platelets (Bld) [#/Vol] 240 10*3/uL 150 - 400 k/uL [facility] RBC (Bld) [#/Vol] 3.54 10*6/uL Low 3.90 - 5.2 0 m/uL [facility] WBC (Bld) [#/Vol] 4.75 10*3/uL 3.70 - 11. 00 k/uL [facility] Comprehensive metabolic 2000 panelon 10-21-2021 Albumin [Mass/Vol] 3.8 g/dL Low 3.9 - 4.9 g/dL [facility] ALP [Catalytic activity/Vol] 141 U/L High 34 - 123 U/L [facility] ALT [Catalytic activity/Vol] 18 U/L 7 - 38 U/L [facility] Anion gap [Moles/Vol] 10 mmol/L 9 - 18 mmol/L [facility] AST [Catalytic activity/Vol] 32 U/L 13 - 35 U/L [facility] Bilirubin [Mass/Vol] 0.3 mg/dL 0.2 - 1 .3 mg/dL [facility] Calcium [Mass/Vol] 9.1 mg/dL 8.5 - 10. 2 mg/dL [facility] Chloride [Moles/Vol] 106 mmol/L High 97 - 10 5 mmol/L [facility] CO2 [Moles/Vol] 24 mmol/L 22 - 30 mmol/L [facility] Creatinine [Mass/Vol] 0.91 mg/dL 0.58 - 0.96 mg/dL [facility] Estimated Glomerular Filtration Rate 69 mL/min/1.73m >=60 mL/min/1.73m [facility] Glucose [Mass/Vol] 110 mg/dL High 74 - 99 mg/dL [facility] Potassium [Moles/Vol] 4.0 mmol/L 3.7 - 5.1 mmol/L [facility] Protein [Mass/Vol] 6.4 g/dL 6.3 - 8.0 g/dL [facility] Sodium [Moles/Vol] 140 mmol/L 136 - 144 mmol/L [facility] Urea nitrogen [Mass/Vol] 9 mg/dL 7 - 21 mg/dL [facility] CBC W Auto Differential pane l (Bld)on 09-30-2021 Abs Immature Gran <0.03 <0.10 k/uL [facility] Basophils (Bld) [#/Vol] 0.04 10*3/uL <0.11 k/uL [facility] Basophils/100 WBC (Bld) 0.6 % [facility] Differential cell count method Nom (Bld) Auto [facility] Eosinophils (Bld) [#/Vol] 0.63 10*3/uL High <0.46 k/uL [facility] Eosinophils/100 WBC (Bld) 9.4 % [facility] Erythrocyte distribution width (RBC) [Ratio] 15.5 % High 11.5 - 15.0 % [facility] Hematocrit (Bld) [Volume fraction] 33.8 % Low 36.0 - 46.0 % [facility] Hemoglobin (Bld) [Mass/Vol] 11.0 g/dL Low 11.5 - 15.5 g/dL [facility] Immature Gran % 0.3 % [facility] Lymphocytes (Bld) [#/Vol] 1.14 10*3/uL 1.00 - 4.00 k/uL [facility] Lymphocytes/100 WBC (Bld) 17.0 % [facility] MCH (RBC) [Entitic mass] 30.3 pg 26.0 - 34.0 pg [facility] MCHC (RBC) [Mass/Vol] 32.5 g/dL 30.5 - 36.0 g/dL [facility] MCV (RBC) [Entitic vol] 93.1 fL 80.0 - 100.0 fL [facility] Monocytes (Bld) [#/Vol] 0.55 10*3/uL <0.87 k/uL [facility] Monocytes/100 WBC (Bld) 8.2 % [facility] Neutrophils (Bld) [#/Vol] 4.33 10*3/uL 1.45 - 7.50 k/uL [facility] Neutrophils/100 WBC (Bld) 64.5 % [facility] Nucleated RBC (Bld) [#/Vol] 10*3/uL <0.01 k/uL [facility] Nucleated RBC/100 WBC (Bld) [Ratio] 0.0 /100 WBC [facility] Platelet mean volume (Bld) [Entitic vol] 9.4 fL 9.0 - 12.7 fL [facility] Platelets (Bld) [#/Vol] 262 10*3/uL 150 - 400 k/uL [facility] RBC (Bld) [#/Vol] 3.63 10*6/uL Low 3.90 - 5.2 0 m/uL [facility] WBC (Bld) [#/Vol] 6.71 10*3/uL 3.70 - 11. 00 k/uL [facility] Comprehensive metabolic 2000 panelon 09-30-2021 Albumin [Mass/Vol] 3.5 g/dL Low 3.9 - 4.9 g/dL [facility] ALP [Catalytic activity/Vol] 170 U/L High 34 - 123 U/L [facility] ALT [Catalytic activity/Vol] 14 U/L 7 - 38 U/L [facility] Anion gap [Moles/Vol] 8 mmol/L Low 9 - 18 mmol/L [facility] AST [Catalytic activity/Vol] 25 U/L 13 - 35 U/L [facility] Bilirubin [Mass/Vol] 0.2 mg/dL 0.2 - 1 .3 mg/dL [facility] Calcium [Mass/Vol] 8.9 mg/dL 8.5 - 10. 2 mg/dL [facility] Chloride [Moles/Vol] 104 mmol/L 97 - 10 5 mmol/L [facility] CO2 [Moles/Vol] 27 mmol/L 22 - 30 mmol/L [facility] Creatinine [Mass/Vol] 1.25 mg/dL High 0.58 - 0.96 mg/dL [facility] Estimated Glomerular Filtration Rate 47 mL/min/1.73m Low >=60 mL/min/1.73m [facility] Glucose [Mass/Vol] 97 mg/dL 74 - 99 mg/dL [facility] Potassium [Moles/Vol] 3.9 mmol/L 3.7 - 5.1 mmol/L [facility] Protein [Mass/Vol] 6.0 g/dL Low 6.3 - 8.0 g/dL [facility] Sodium [Moles/Vol] 139 mmol/L 136 - 144 mmol/L [facility] Urea nitrogen [Mass/Vol] 20 mg/dL 7 - 21 mg/dL [facility] US THYROID/PARATHYROIDon [facility] CBC W Auto Differential pane l (Bld)on 09-02-2021 Abs Immature Gran <0.03 <0.10 k/uL [facility] Basophils (Bld) [#/Vol] 10*3/uL <0.11 k/uL [facility] Basophils/100 WBC (Bld) 0.4 % [facility] Differential cell count method Nom (Bld) Auto [facility] Eosinophils (Bld) [#/Vol] 0.26 10*3/uL <0.46 k/uL [facility] Eosinophils/100 WBC (Bld) 5.4 % [facility] Erythrocyte distribution width (RBC) [Ratio] 15.2 % High 11.5 - 15.0 % [facility] Hematocrit (Bld) [Volume fraction] 38.3 % 36.0 - 46.0 % [facility] Hemoglobin (Bld) [Mass/Vol] 12.3 g/dL 11.5 - 15.5 g/dL [facility] Immature Gran % 0.4 % [facility] Lymphocytes (Bld) [#/Vol] 1.29 10*3/uL 1.00 - 4.00 k/uL [facility] Lymphocytes/100 WBC (Bld) 26.9 % [facility] MCH (RBC) [Entitic mass] 29.9 pg 26.0 - 34.0 pg [facility] MCHC (RBC) [Mass/Vol] 32.1 g/dL 30.5 - 36.0 g/dL [facility] MCV (RBC) [Entitic vol] 93.0 fL 80.0 - 100.0 fL [facility] Monocytes (Bld) [#/Vol] 0.46 10*3/uL <0.87 k/uL [facility] Monocytes/100 WBC (Bld) 9.6 % [facility] Neutrophils (Bld) [#/Vol] 2.75 10*3/uL 1.45 - 7.50 k/uL [facility] Neutrophils/100 WBC (Bld) 57.3 % [facility] Nucleated RBC (Bld) [#/Vol] 10*3/uL <0.01 k/uL [facility] Nucleated RBC/100 WBC (Bld) [Ratio] 0.0 /100 WBC [facility] Platelet mean volume (Bld) [Entitic vol] 10.1 fL 9.0 - 12.7 fL [facility] Platelets (Bld) [#/Vol] 177 10*3/uL 150 - 400 k/uL [facility] RBC (Bld) [#/Vol] 4.12 10*6/uL 3.90 - 5.2 0 m/uL [facility] WBC (Bld) [#/Vol] 4.80 10*3/uL 3.70 - 11. 00 k/uL [facility] Comprehensive metabolic 2000 panelon 09-02-2021 Albumin [Mass/Vol] 3.7 g/dL Low 3.9 - 4.9 g/dL [facility] ALP [Catalytic activity/Vol] 127 U/L High 34 - 123 U/L [facility] ALT [Catalytic activity/Vol] 20 U/L 7 - 38 U/L [facility] Anion gap [Moles/Vol] 5 mmol/L Low 9 - 18 mmol/L [facility] AST [Catalytic activity/Vol] 37 U/L High 13 - 35 U/L [facility] Bilirubin [Mass/Vol] 0.2 mg/dL 0.2 - 1 .3 mg/dL [facility] Calcium [Mass/Vol] 9.0 mg/dL 8.5 - 10. 2 mg/dL [facility] Chloride [Moles/Vol] 106 mmol/L High 97 - 10 5 mmol/L [facility] CO2 [Moles/Vol] 28 mmol/L 22 - 30 mmol/L [facility] Creatinine [Mass/Vol] 0.96 mg/dL 0.58 - 0.96 mg/dL [facility] Estimated Glomerular Filtration Rate 65 mL/min/1.73m >=60 mL/min/1.73m [facility] Glucose [Mass/Vol] 102 mg/dL High 74 - 99 mg/dL [facility] Potassium [Moles/Vol] 3.9 mmol/L 3.7 - 5.1 mmol/L [facility] Protein [Mass/Vol] 5.7 g/dL Low 6.3 - 8.0 g/dL [facility] Sodium [Moles/Vol] 139 mmol/L 136 - 144 mmol/L [facility] Urea nitrogen [Mass/Vol] 16 mg/dL 7 - 21 mg/dL [facility] No Panel Informationon 08-25 [facility] External Other: Preferred Me thod of Contacton 12-01-2016 methcontact secmsg [facility] Work Phone: [phone] Patient's prefered method of contact secmsg Invalid Interpretation Code [facility] Work Phone: [phone] Office Visiton 12-01-2016 Documentation of current medications (procedure) Done Invalid Interpretation Code [facility] Work Phone: [phone] Fall risk assessment No Invalid Interpretation Code [facility] Work Phone: [phone] Protein mass conc Done [facility] Work Phone: [phone] Tobacco smoking status NHIS Never smoker [facility] Work Phone: [phone] Tobacco use CPHS Never smoker Invalid Interpretation Code [facility] Work Phone: [phone] Replaced Document: Susan JIMÉNEZ Observationson 12-01-2016 EKG QRS axis -31 deg [facility] Work Phone: [phone] electrocardiogram interpretation 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 ABNORMAL [facility] Work Phone: [phone] P Chuckey 47 deg [facility] Work Phone: [phone] P wave axis, electrocardiogram 47 deg Invalid Interpretation Code [facility] Work Phone: [phone] WV Interval 190 ms [facility] Work Phone: [phone] WV interval, electrocardiogram 190 ms Invalid Interpretation Code [facility] Work Phone: [phone] Pulse (Heart Rate) 68 /min Invalid Interpretation Code [facility] Work Phone: [phone] QRS axis, electrocardiogram -31 deg Invalid Interpretation Code [facility] Work Phone: [phone] QRS Duration 86 ms [facility] Work Phone: [phone] QRS duration, electrocardiogram 86 ms Invalid Interpretation Code [facility] Work Phone: [phone] QT Interval new path ms [facility] Work Phone: [phone] QT interval, electrocardiogram new path ms Invalid Interpretation Code [facility] Work Phone: [phone] QTc Olivas 412 ms [facility] Work Phone: [phone] T Chuckey 17 deg [facility] Work Phone: [phone] T wave axis, electrocardiogram 17 deg Invalid Interpretation Code [facility] Work Phone: [phone] Clinical Lists 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: 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 11-30-2016 Left ventricular Ejection fraction 50 % Invalid Interpretation Code [facility] Work Phone: [phone] Vital Signs Date Time Vital Sign Value Performing Clinician Facility 12-13-2024 08:00-0400 Body temperature 97.81 [degF] [facility] Work Phone: [facility] 12-13-2024 08:00-0400 Diastolic blood pressure 68 mm[Hg] [facility] Work Phone: [facility] 12-13-2024 08:00-0400 Heart rate 64 /min [facility] Work Phone: [facility] 12-13-2024 08:00-0400 SaO2% (BldA) [Mass fraction] 97 % [facility] Work Phone: [facility] 12-13-2024 08:00-0400 Systolic blood pressure 129 mm[Hg] [facility] Work Phone: [facility] 12-12-2024 07:48-0400 Body temperature 97.39 [degF] Canaan Cote [employer].TERRITORY DEVELOPMENT MANAGER Work Phone: [facility] 12-12-2024 07:48-0400 Diastolic blood pressure 77 mm[Hg] Canaan Cote [employer].TERRITORY DEVELOPMENT MANAGER Work Phone: [facility] 12-12-2024 07:48-0400 Heart rate 62 /min Canaan Cote [employer].TERRITORY DEVELOPMENT MANAGER Work Phone: [facility] 12-12-2024 07:48-0400 SaO2% (BldA) [Mass fraction] 93 % Caity Cote [employer].TERRITORY DEVELOPMENT MANAGER Work Phone: [facility] 12-12-2024 07:48-0400 Systolic blood pressure 130 mm[Hg] [facility] Cote [employer].TERRITORY DEVELOPMENT MANAGER Work Phone: [facility] 12-12-2024 07:00-0400 Body mass index (BMI) [Ratio] 31.88 kg/m2 [facility] Work Phone: [facility] 12-12-2024 07:00-0400 Body weight 78.47 kg Lab[facility] Work Phone: [facility] 11-22-2024 09:00-0400 Body temperature 98.6 [degF] [facility] Work Phone: [facility] 11-22-2024 09:00-0400 Diastolic blood pressure 63 mm[Hg] [facility] Work Phone: [facility] 11-22-2024 09:00-0400 Heart rate 80 /min [facility] Work Phone: [facility] 11-22-2024 09:00-0400 SaO2% (BldA) [Mass fraction] 95 % [facility] Work Phone: [facility] 11-22-2024 09:00-0400 Systolic blood pressure 106 mm[Hg] [facility] Work Phone: [facility] 11-21-2024 08:58-0400 Body mass index (BMI) [Ratio] 31.51 kg/m2 Caity Cote [employer].TERRITORY DEVELOPMENT MANAGER Work Phone: [facility] 11-21-2024 08:58-0400 Body temperature 97.9 [degF] Caity Cote [employer].TERRITORY DEVELOPMENT MANAGER Work Phone: [facility] 11-21-2024 08:58-0400 Body weight 77.56 kg Caity Cote [employer].TERRITORY DEVELOPMENT MANAGER Work Phone: [facility] 11-21-2024 08:58-0400 Diastolic blood pressure 79 mm[Hg] Caity Cote [employer].TERRITORY DEVELOPMENT MANAGER Work Phone: [facility] 11-21-2024 08:58-0400 Heart rate 58 /min Caity Cote [employer].TERRITORY DEVELOPMENT MANAGER Work Phone: [facility] 11-21-2024 08:58-0400 SaO2% (BldA) [Mass fraction] 95 % Caity Cote [employer].TERRITORY DEVELOPMENT MANAGER Work Phone: [facility] 11-21-2024 08:58-0400 Systolic blood pressure 123 mm[Hg] Caity Cote [employer].TERRITORY DEVELOPMENT MANAGER Work Phone: [facility] 11-21-2024 08:26-0400 Body mass index (BMI) [Ratio] 31.51 kg/m2 [facility] Work Phone: [facility] 11-21-2024 08:26-0400 Body weight 77.56 kg Lab[facility]Port [facility]str Work Phone: [facility] 11-01-2024 07:51-0400 Body temperature 97 [degF] Treatment [facility] Work Phone: [facility] 11-01-2024 07:51-0400 Diastolic blood pressure 72 mm[Hg] [facility] Work Phone: [facility] 11-01-2024 07:51-0400 Heart rate 65 /min [facility] Work Phone: [facility] 11-01-2024 07:51-0400 SaO2% (BldA) [Mass fraction] 94 % [facility] Work Phone: [facility] 11-01-2024 07:51-0400 Systolic blood pressure 94 mm[Hg] Treatment [facility] Work Phone: [facility] 10-31-2024 07:57-0400 Body temperature 98.4 [degF] Canaan Cote [employer].TERRITORY DEVELOPMENT MANAGER Work Phone: [facility] 10-31-2024 07:57-0400 Diastolic blood pressure 68 mm[Hg] Caity Cote [employer].TERRITORY DEVELOPMENT MANAGER Work Phone: [facility] 10-31-2024 07:57-0400 Heart rate 58 /min Canaan Cote [employer].TERRITORY DEVELOPMENT MANAGER Work Phone: [facility] 10-31-2024 07:57-0400 Respiratory rate 15 /min Canaan Cote [employer].TERRITORY DEVELOPMENT MANAGER Work Phone: [facility] 10-31-2024 07:57-0400 SaO2% (BldA) [Mass fraction] 97 % Canaan Cote [employer].TERRITORY DEVELOPMENT MANAGER Work Phone: [facility] 10-31-2024 07:57-0400 Systolic blood pressure 122 mm[Hg] Caity Cote [employer].TERRITORY DEVELOPMENT MANAGER Work Phone: [facility] 10-31-2024 07:56-0400 Body mass index (BMI) [Ratio] 31.28 kg/m2 Caity Cote [employer].TERRITORY DEVELOPMENT MANAGER Work Phone: [facility] 10-31-2024 07:56-0400 Body weight 77 kg Canaan Cote [employer].TERRITORY DEVELOPMENT MANAGER Work Phone: [facility] 10-11-2024 07:43-0400 Body temperature 97.39 [degF] Treatment [facility]str Work Phone: [facility] 10-11-2024 07:43-0400 Diastolic blood pressure 52 mm[Hg] Treatment [facility] Work Phone: [facility] 10-11-2024 07:43-0400 Heart rate 76 /min Treatment [facility] Work Phone: [facility] 10-11-2024 07:43-0400 SaO2% (BldA) [Mass fraction] 96 % Treatment [facility] Work Phone: [facility] 10-11-2024 07:43-0400 Systolic blood pressure 120 mm[Hg] Treatment [facility] Work Phone: [facility] 10-10-2024 09:21-0400 Body mass index (BMI) [Ratio] 31.64 kg/m2 Canaan Cote [employer].TERRITORY DEVELOPMENT MANAGER Work Phone: [facility] 10-10-2024 09:21-0400 Body temperature 98.4 [degF] Caity Cote [employer].TERRITORY DEVELOPMENT MANAGER Work Phone: [facility] 10-10-2024 09:21-0400 Body weight 77.9 kg Caity Maryenter [employer].TERRITORY DEVELOPMENT MANAGER Work Phone: [facility] 10-10-2024 09:21-0400 Diastolic blood pressure 82 mm[Hg] Canaan Cote [employer].TERRITORY DEVELOPMENT MANAGER Work Phone: [facility] 10-10-2024 09:21-0400 Heart rate 77 /min Canaan Cote [employer].TERRITORY DEVELOPMENT MANAGER Work Phone: [facility] 10-10-2024 09:21-0400 SaO2% (BldA) [Mass fraction] 95 % Caity Cote [employer].TERRITORY DEVELOPMENT MANAGER Work Phone: [facility] 10-10-2024 09:21-0400 Systolic blood pressure 129 mm[Hg] Caity Cote [employer].TERRITORY DEVELOPMENT MANAGER Work Phone: [facility] 10-03-2024 10:39-0400 Body mass index (BMI) [Ratio] 31.78 kg/m2 Quita Hoff Work Phone: [facility] 10-03-2024 10:39-0400 Body temperature 98.71 [degF] Quita Hoff Work Phone: [facility] 10-03-2024 10:39-0400 Body weight 78.25 kg Quita Hoff Work Phone: [facility] 10-03-2024 10:39-0400 Diastolic blood pressure 84 mm[Hg] Quita Hoff Work Phone: [facility] 10-03-2024 10:39-0400 Heart rate 74 /min Quita Hoff Work Phone: [facility] 10-03-2024 10:39-0400 SaO2% (BldA) [Mass fraction] 96 % Quita Hoff Work Phone: [facility] 10-03-2024 10:39-0400 Systolic blood pressure 133 mm[Hg] Quita Hoff Work Phone: [facility] 10-03-2024 10:25-0400 Body mass index (BMI) [Ratio] 31.78 kg/m2 [facility] Work Phone: [facility] 10-03-2024 10:25-0400 Body weight 78.25 kg Lab[facility]Port [facility] Work Phone: [facility] 2024 10:17-0400 Body mass index (BMI) [Ratio] 32.01 kg/m2 Isac Billingsley MD Work Phone: [facility] 2024 10:17-0400 Body weight 76.84 kg Isac Billingsley MD Work Phone: [facility] 2024 10:17-0400 Diastolic blood pressure 68 mm[Hg] Isac Billingsley MD Work Phone: [facility] 2024 10:17-0400 Heart rate 68 /min Isac Billingsley MD Work Phone: [facility] 2024 10:17-0400 SaO2% (BldA) [Mass fraction] 88 % Isac Billingsley MD Work Phone: [facility] 2024 10:17-0400 Systolic blood pressure 120 mm[Hg] Isac Billingsley MD Work Phone: [facility] 09-06-2024 14:00-0400 Body temperature 98.01 [degF] Treatment [facility]str Work Phone: [facility] 09-06-2024 14:00-0400 Diastolic blood pressure 67 mm[Hg] Treatment [facility] Work Phone: [facility] 09-06-2024 14:00-0400 Heart rate 60 /min Treatment [facility]str Work Phone: [facility] 09-06-2024 14:00-0400 Systolic blood pressure 106 mm[Hg] Treatment [facility]str Work Phone: [facility] 09-05-2024 10:47-0400 Body mass index (BMI) [Ratio] 31.88 kg/m2 [facility] Work Phone: [facility] 09-05-2024 10:47-0400 Body temperature 97.59 [degF] Caity Cote [employer].TERRITORY DEVELOPMENT MANAGER Work Phone: [facility] 09-05-2024 10:47-0400 Body weight 78.47 kg Lab/Port [facility]str Work Phone: [facility] 09-05-2024 10:47-0400 Diastolic blood pressure 80 mm[Hg] Caity Cote [employer].TERRITORY DEVELOPMENT MANAGER Work Phone: [facility] 09-05-2024 10:47-0400 Heart rate 54 /min Caity Cote [employer].TERRITORY DEVELOPMENT MANAGER Work Phone: [facility] 09-05-2024 10:47-0400 SaO2% (BldA) [Mass fraction] 96 % Caity Cote [employer].TERRITORY DEVELOPMENT MANAGER Work Phone: [facility] 09-05-2024 10:47-0400 Systolic blood pressure 146 mm[Hg] Caity Cote [employer].TERRITORY DEVELOPMENT MANAGER Work Phone: [facility] 08-16-2024 14:00-0400 Body mass index (BMI) [Ratio] 32.15 kg/m2 Treatment [facility] Work Phone: [facility] 08-16-2024 14:00-0400 Body temperature 98.1 [degF] Treatment [facility]str Work Phone: [facility] 08-16-2024 14:00-0400 Body weight 79.15 kg Treatment [facility]str Work Phone: [facility] 08-16-2024 14:00-0400 Diastolic blood pressure 61 mm[Hg] Treatment [facility]str Work Phone: [facility] 08-16-2024 14:00-0400 Heart rate 59 /min Treatment [facility]str Work Phone: [facility] 08-16-2024 14:00-0400 SaO2% (BldA) [Mass fraction] 95 % Treatment [facility] Work Phone: [facility] 08-16-2024 14:00-0400 Systolic blood pressure 125 mm[Hg] Treatment [facility]str Work Phone: [facility] 08-15-2024 11:04-0400 Body mass index (BMI) [Ratio] 32.34 kg/m2 Rip Masci DO Work Phone: [facility] 08-15-2024 11:04-0400 Body temperature 98.2 [degF] Rip Masci DO Work Phone: [facility] 08-15-2024 11:04-0400 Body weight 79.61 kg Rip Masci DO Work Phone: [facility] 08-15-2024 11:04-0400 Diastolic blood pressure 75 mm[Hg] Rip Masci DO Work Phone: [facility] 08-15-2024 11:04-0400 Heart rate 68 /min Rip Masci DO Work Phone: [facility] 08-15-2024 11:04-0400 SaO2% (BldA) [Mass fraction] 98 % Rip Masci DO Work Phone: [facility] 08-15-2024 11:04-0400 Systolic blood pressure 129 mm[Hg] Rip Masci DO Work Phone: [facility] 08-15-2024 10:55-0400 Body mass index (BMI) [Ratio] 32.34 kg/m2 [facility] Work Phone: [facility] 08-15-2024 10:55-0400 Body weight 79.61 kg Lab[facility]Port [facility] Work Phone: [facility] 07-26-2024 13:25-0500 Body temperature 97.81 [degF] Treatment [facility]str Work Phone: [facility] 07-26-2024 13:25-0500 Diastolic blood pressure 56 mm[Hg] Treatment [facility]str Work Phone: [facility] 07-26-2024 13:25-0500 Heart rate 87 /min Treatment [facility]str Work Phone: [facility] 07-26-2024 13:25-0500 SaO2% (BldA) [Mass fraction] 97 % Treatment [facility] Work Phone: [facility] 07-26-2024 13:25-0500 Systolic blood pressure 93 mm[Hg] Treatment [facility]str Work Phone: [facility] 07-25-2024 10:14-0500 Body mass index (BMI) [Ratio] 31.69 kg/m2 Quita Hoff Work Phone: [facility] 07-25-2024 10:14-0500 Body temperature 98.8 [degF] Quita Hoff Work Phone: [facility] 07-25-2024 10:14-0500 Body weight 78.02 kg Quita Hoff Work Phone: [facility] 07-25-2024 10:14-0500 Diastolic blood pressure 77 mm[Hg] Quita Hoff Work Phone: [facility] 07-25-2024 10:14-0500 Heart rate 61 /min Quita Hoff Work Phone: [facility] 07-25-2024 10:14-0500 SaO2% (BldA) [Mass fraction] 99 % Quita Hoff Work Phone: [facility] 07-25-2024 10:14-0500 Systolic blood pressure 124 mm[Hg] Quita Hoff Work Phone: [facility] 07-25-2024 09:53-0500 Body mass index (BMI) [Ratio] 31.69 kg/m2 [facility] Work Phone: [facility] 07-25-2024 09:53-0500 Body weight 78.02 kg Lab[facility]Port [facility] Work Phone: [facility] 07-05-2024 14:02-0500 Body temperature 97.81 [degF] Treatment [facility]str Work Phone: [facility] 07-05-2024 14:02-0500 Diastolic blood pressure 53 mm[Hg] Treatment [facility]str Work Phone: [facility] 07-05-2024 14:02-0500 Heart rate 60 /min Treatment [facility]str Work Phone: [facility] 07-05-2024 14:02-0500 SaO2% (BldA) [Mass fraction] 97 % Treatment [facility] Work Phone: [facility] 07-05-2024 14:02-0500 Systolic blood pressure 112 mm[Hg] Treatment [facility]str Work Phone: [facility] 07-04-2024 10:42-0500 Body mass index (BMI) [Ratio] 32.06 kg/m2 [facility] Work Phone: [facility] 07-04-2024 10:42-0500 Body temperature 98.29 [degF] Caity Cote APRN.TERRITORY DEVELOPMENT MANAGER Work Phone: [facility] 07-04-2024 10:42-0500 Body weight 78.93 kg Lab[facility]Port [facility] Work Phone: [facility] 07-04-2024 10:42-0500 Diastolic blood pressure 64 mm[Hg] Caity Cote APRN.TERRITORY DEVELOPMENT MANAGER Work Phone: [facility] 07-04-2024 10:42-0500 Heart rate 63 /min Caity Cote APRN.TERRITORY DEVELOPMENT MANAGER Work Phone: [facility] 07-04-2024 10:42-0500 SaO2% (BldA) [Mass fraction] 96 % Caity Cote APRN.TERRITORY DEVELOPMENT MANAGER Work Phone: [facility] 07-04-2024 10:42-0500 Systolic blood pressure 98 mm[Hg] Caity Cote [employer].TERRITORY DEVELOPMENT MANAGER Work Phone: [facility] 06-14-2024 13:32-0500 Body temperature 97.9 [degF] Treatment [facility]str Work Phone: [facility] 06-14-2024 13:32-0500 Diastolic blood pressure 72 mm[Hg] Treatment [facility]str Work Phone: [facility] 06-14-2024 13:32-0500 Heart rate 62 /min Treatment [facility]str Work Phone: [facility] 06-14-2024 13:32-0500 Respiratory rate 18 /min Treatment [facility]str Work Phone: [facility] 06-14-2024 13:32-0500 SaO2% (BldA) [Mass fraction] 96 % Treatment [facility]str Work Phone: [facility] 06-14-2024 13:32-0500 Systolic blood pressure 130 mm[Hg] Treatment [facility]str Work Phone: [facility] 06-13-2024 11:20-0500 Body mass index (BMI) [Ratio] 32.06 kg/m2 Rip Masci DO Work Phone: [facility] 06-13-2024 11:20-0500 Body temperature 98.2 [degF] Rip Masci DO Work Phone: [facility] 06-13-2024 11:20-0500 Body weight 78.93 kg Rip Masci DO Work Phone: [facility] 06-13-2024 11:20-0500 Diastolic blood pressure 73 mm[Hg] Rip Masci DO Work Phone: [facility] 06-13-2024 11:20-0500 Heart rate 61 /min Rip Masci DO Work Phone: [facility] 06-13-2024 11:20-0500 SaO2% (BldA) [Mass fraction] 97 % Rip Masci DO Work Phone: [facility] 06-13-2024 11:20-0500 Systolic blood pressure 120 mm[Hg] Rip Masci DO Work Phone: [facility] 06-13-2024 10:58-0500 Body mass index (BMI) [Ratio] 32.06 kg/m2 [facility] Work Phone: [facility] 06-13-2024 10:58-0500 Body weight 78.93 kg Lab[facility] Work Phone: [facility] 05-24-2024 09:59-0500 Diastolic blood pressure 70 mm[Hg] Treatment [facility]str Work Phone: [facility] 05-24-2024 09:59-0500 Heart rate 72 /min Treatment [facility]str Work Phone: [facility] 05-24-2024 09:59-0500 Respiratory rate 18 /min Treatment [facility]str Work Phone: [facility] 05-24-2024 09:59-0500 SaO2% (BldA) [Mass fraction] 97 % Treatment [facility]str Work Phone: [facility] 05-24-2024 09:59-0500 Systolic blood pressure 130 mm[Hg] Treatment [facility]str Work Phone: [facility] 05-23-2024 10:56-0500 Body mass index (BMI) [Ratio] 31.97 kg/m2 Rip Masci DO Work Phone: [facility] 05-23-2024 10:56-0500 Body temperature 98.2 [degF] Rip Masci DO Work Phone: [facility] 05-23-2024 10:56-0500 Body weight 78.7 kg Rip Masci DO Work Phone: [facility] 05-23-2024 10:56-0500 Diastolic blood pressure 79 mm[Hg] Rip Masci DO Work Phone: [facility] 05-23-2024 10:56-0500 Heart rate 77 /min Rip Masci DO Work Phone: [facility] 05-23-2024 10:56-0500 SaO2% (BldA) [Mass fraction] 97 % Rip Masci DO Work Phone: [facility] 05-23-2024 10:56-0500 Systolic blood pressure 125 mm[Hg] Rip Masci DO Work Phone: [facility] 05-23-2024 10:40-0500 Body mass index (BMI) [Ratio] 31.97 kg/m2 [facility] Work Phone: [facility] 05-23-2024 10:40-0500 Body weight 78.7 kg Lab[facility]Port [facility] Work Phone: [facility] 05-04-2024 13:00-0500 Body temperature 97.7 [degF] Treatment [facility]str Work Phone: [facility] 05-04-2024 13:00-0500 Diastolic blood pressure 67 mm[Hg] Treatment [facility]str Work Phone: [facility] 05-04-2024 13:00-0500 Heart rate 72 /min Treatment [facility]str Work Phone: [facility] 05-04-2024 13:00-0500 Systolic blood pressure 136 mm[Hg] Treatment [facility]str Work Phone: [facility] 05-02-2024 10:01-0500 Body mass index (BMI) [Ratio] 32.24 kg/m2 Rip Masci DO Work Phone: [facility] 05-02-2024 10:01-0500 Body temperature 97.5 [degF] Rip Masci DO Work Phone: [facility] 05-02-2024 10:01-0500 Body weight 79.38 kg Rip Masci DO Work Phone: [facility] 05-02-2024 10:01-0500 Diastolic blood pressure 65 mm[Hg] Rip Masci DO Work Phone: [facility] 05-02-2024 10:01-0500 Heart rate 66 /min Rip Masci DO Work Phone: [facility] 05-02-2024 10:01-0500 SaO2% (BldA) [Mass fraction] 96 % Rip Masci DO Work Phone: [facility] 05-02-2024 10:01-0500 Systolic blood pressure 109 mm[Hg] Rip Masci DO Work Phone: [facility] 05-02-2024 09:44-0500 Body mass index (BMI) [Ratio] 32.24 kg/m2 [facility] Work Phone: [facility] 05-02-2024 09:44-0500 Body weight 79.38 kg Lab[facility]Port [facility]str Work Phone: [facility] 04-12-2024 09:09-0500 Body temperature 97.59 [degF] Treatment [facility]str Work Phone: [facility] 04-12-2024 09:09-0500 Diastolic blood pressure 76 mm[Hg] Treatment [facility]str Work Phone: [facility] 04-12-2024 09:09-0500 Heart rate 64 /min Treatment [facility]str Work Phone: [facility] 04-12-2024 09:09-0500 Respiratory rate 18 /min Treatment [facility]str Work Phone: [facility] 04-12-2024 09:09-0500 SaO2% (BldA) [Mass fraction] 97 % Treatment [facility]str Work Phone: [facility] 04-12-2024 09:09-0500 Systolic blood pressure 124 mm[Hg] Treatment [facility]str Work Phone: [facility] 04-11-2024 08:39-0500 Body mass index (BMI) [Ratio] 32.61 kg/m2 [facility] Work Phone: [facility] 04-11-2024 08:39-0500 Body temperature 98.29 [degF] Caity Cote [employer].TERRITORY DEVELOPMENT MANAGER Work Phone: [facility] 04-11-2024 08:39-0500 Body weight 80.29 kg Lab/Port Wstr Work Phone: [facility] 04-11-2024 08:39-0500 Diastolic blood pressure 73 mm[Hg] Caity Cote [employer].TERRITORY DEVELOPMENT MANAGER Work Phone: [facility] 04-11-2024 08:39-0500 Heart rate 60 /min Caity Cote [employer].TERRITORY DEVELOPMENT MANAGER Work Phone: [facility] 04-11-2024 08:39-0500 SaO2% (BldA) [Mass fraction] 94 % Caity Maryenter [employer].TERRITORY DEVELOPMENT MANAGER Work Phone: [facility] 04-11-2024 08:39-0500 Systolic blood pressure 110 mm[Hg] Canaanleigh Cote [employer].TERRITORY DEVELOPMENT MANAGER Work Phone: [facility] 03-22-2024 10:28-0400 Body temperature 98.4 [degF] Treatment [facility]str Work Phone: [facility] 03-22-2024 10:28-0400 Diastolic blood pressure 73 mm[Hg] Treatment Wstr Work Phone: [facility] 03-22-2024 10:28-0400 Heart rate 75 /min Treatment Wstr Work Phone: [facility] 03-22-2024 10:28-0400 Respiratory rate 16 /min Treatment Wstr Work Phone: [facility] 03-22-2024 10:28-0400 SaO2% (BldA) [Mass fraction] 98 % Treatment Wstr Work Phone: [facility] 03-22-2024 10:28-0400 Systolic blood pressure 127 mm[Hg] Treatment Wstr Work Phone: [facility] 03-21-2024 07:48-0400 Body mass index (BMI) [Ratio] 32.98 kg/m2 Lab/Port Wstr Work Phone: [facility] 03-21-2024 07:48-0400 Body temperature 97.5 [degF] Rip Rivers DO Work Phone: [facility] 03-21-2024 07:48-0400 Body weight 81.19 kg Lab/Port Wstr Work Phone: [facility] 03-21-2024 07:48-0400 Diastolic blood pressure 64 mm[Hg] Rip Rivers DO Work Phone: [facility] 03-21-2024 07:48-0400 Heart rate 66 /min Rip Rivers DO Work Phone: [facility] 03-21-2024 07:48-0400 SaO2% (BldA) [Mass fraction] 97 % Rip Silvestre DO Work Phone: [facility] 03-21-2024 07:48-0400 Systolic blood pressure 119 mm[Hg] Rip Riki DO Work Phone: [facility] 02-28-2024 08:01-0400 Body temperature 97.5 [degF] Treatment Wstr Work Phone: [facility] 02-28-2024 08:01-0400 Diastolic blood pressure 81 mm[Hg] Treatment Wstr Work Phone: [facility] 02-28-2024 08:01-0400 Heart rate 64 /min Treatment Wstr Work Phone: [facility] 02-28-2024 08:01-0400 SaO2% (BldA) [Mass fraction] 97 % Treatment Wstr Work Phone: [facility] 02-28-2024 08:01-0400 Systolic blood pressure 130 mm[Hg] Treatment Wstr Work Phone: [facility] 02-27-2024 10:48-0400 Body mass index (BMI) [Ratio] 32.9 kg/m2 Caity Cote [employer]TERRITORY DEVELOPMENT MANAGER Work Phone: [facility] 02-27-2024 10:48-0400 Body temperature 98.01 [degF] Caity Cote [employer].TERRITORY DEVELOPMENT MANAGER Work Phone: [facility] 02-27-2024 10:48-0400 Body weight 81 kg Caity Cote [employer]TERRITORY DEVELOPMENT MANAGER Work Phone: [facility] 02-27-2024 10:48-0400 Diastolic blood pressure 58 mm[Hg] Caity Cote [employer]TERRITORY DEVELOPMENT MANAGER Work Phone: [facility] 02-27-2024 10:48-0400 Heart rate 55 /min Caity Cote [employer]TERRITORY DEVELOPMENT MANAGER Work Phone: [facility] 02-27-2024 10:48-0400 SaO2% (BldA) [Mass fraction] 97 % Caity Cote [employer].TERRITORY DEVELOPMENT MANAGER Work Phone: [facility] 02-27-2024 10:48-0400 Systolic blood pressure 110 mm[Hg] Caity Cote [employer]TERRITORY DEVELOPMENT MANAGER Work Phone: [facility] 02-27-2024 10:13-0400 Body mass index (BMI) [Ratio] 32.89 kg/m2 Lab/Port Wstr Work Phone: [facility] 02-27-2024 10:13-0400 Body weight 80.97 kg Lab/Port Wstr Work Phone: [facility] 02-08-2024 08:20-0400 Body height 156.9 cm Treatment Wstr Work Phone: [facility] Comment on above: without shoes 02-08-2024 08:20-0400 Body temperature 97.81 [degF] Treatment Wstr Work Phone: [facility] 02-08-2024 08:20-0400 Diastolic blood pressure 74 mm[Hg] Treatment Wstr Work Phone: [facility] 02-08-2024 08:20-0400 Heart rate 62 /min Treatment Wstr Work Phone: [facility] 02-08-2024 08:20-0400 Respiratory rate 14 /min Treatment Wstr Work Phone: [facility] 02-08-2024 08:20-0400 SaO2% (BldA) [Mass fraction] 96 % Treatment Wstr Work Phone: [facility] 02-08-2024 08:20-0400 Systolic blood pressure 119 mm[Hg] Treatment Wstr Work Phone: [facility] 02-03-2024 09:32-0400 Body mass index (BMI) [Ratio] 33.44 kg/m2 Caity Cote [employer].TERRITORY DEVELOPMENT MANAGER Work Phone: [facility] 02-03-2024 09:32-0400 Body temperature 97.3 [degF] Caity Cote [employer].TERRITORY DEVELOPMENT MANAGER Work Phone: [facility] 02-03-2024 09:32-0400 Body weight 80.29 kg Caity Cote [employer].TERRITORY DEVELOPMENT MANAGER Work Phone: [facility] 02-03-2024 09:32-0400 Diastolic blood pressure 61 mm[Hg] Caity Cote [employer].TERRITORY DEVELOPMENT MANAGER Work Phone: [facility] 02-03-2024 09:32-0400 Heart rate 74 /min Caity Cote [employer].TERRITORY DEVELOPMENT MANAGER Work Phone: [facility] 02-03-2024 09:32-0400 SaO2% (BldA) [Mass fraction] 100 % Caity Cote [employer].TERRITORY DEVELOPMENT MANAGER Work Phone: [facility] 02-03-2024 09:32-0400 Systolic blood pressure 114 mm[Hg] Caity Cote [employer]TERRITORY DEVELOPMENT MANAGER Work Phone: [facility] 02-03-2024 09:20-0400 Body mass index (BMI) [Ratio] 33.44 kg/m2 Lab/Port Wstr Work Phone: [facility] 02-03-2024 09:20-0400 Body weight 80.29 kg Lab/Port Wstr Work Phone: [facility] 01-16-2024 09:01-0400 Body mass index (BMI) [Ratio] 33.35 kg/m2 Treatment Wstr Work Phone: [facility] 01-16-2024 09:01-0400 Body temperature 97.11 [degF] Treatment Wstr Work Phone: [facility] 01-16-2024 09:01-0400 Body weight 80.06 kg Treatment Wstr Work Phone: [facility] 01-16-2024 09:01-0400 Diastolic blood pressure 72 mm[Hg] Treatment Wstr Work Phone: [facility] 01-16-2024 09:01-0400 Heart rate 62 /min Treatment Wstr Work Phone: [facility] 01-16-2024 09:01-0400 SaO2% (BldA) [Mass fraction] 96 % Treatment Wstr Work Phone: [facility] 01-16-2024 09:01-0400 Systolic blood pressure 112 mm[Hg] Treatment Wstr Work Phone: [facility] 01-04-2024 09:50-0400 Body mass index (BMI) [Ratio] 33.63 kg/m2 Rip Masci DO Work Phone: [facility] 01-04-2024 09:50-0400 Body temperature 98.49 [degF] Rip Masci DO Work Phone: [facility] 01-04-2024 09:50-0400 Body weight 80.74 kg Rip Masci DO Work Phone: [facility] 01-04-2024 09:50-0400 Diastolic blood pressure 57 mm[Hg] Rip Masci DO Work Phone: [facility] 01-04-2024 09:50-0400 Heart rate 67 /min Rip Masci DO Work Phone: [facility] 01-04-2024 09:50-0400 SaO2% (BldA) [Mass fraction] 96 % Rip Masci DO Work Phone: [facility] 01-04-2024 09:50-0400 Systolic blood pressure 93 mm[Hg] Rip Masci DO Work Phone: [facility] 12-22-2023 10:49-0400 Diastolic blood pressure 77 mm[Hg] Treatment Wstr Work Phone: [facility] 12-22-2023 10:49-0400 Heart rate 66 /min Treatment Wstr Work Phone: [facility] 12-22-2023 10:49-0400 Systolic blood pressure 144 mm[Hg] Treatment Wstr Work Phone: [facility] 12-22-2023 09:47-0400 Body temperature 98.49 [degF] Treatment Wstr Work Phone: [facility] 12-22-2023 09:47-0400 Respiratory rate 22 /min Treatment Wstr Work Phone: [facility] 12-15-2023 14:00-0400 Body temperature 97.59 [degF] Treatment Wstr Work Phone: [facility] 12-15-2023 14:00-0400 Diastolic blood pressure 61 mm[Hg] Treatment Wstr Work Phone: [facility] 12-15-2023 14:00-0400 Heart rate 61 /min Treatment Wstr Work Phone: [facility] 12-15-2023 14:00-0400 SaO2% (BldA) [Mass fraction] 96 % Treatment Wstr Work Phone: [facility] 12-15-2023 14:00-0400 Systolic blood pressure 112 mm[Hg] Treatment Wstr Work Phone: [facility] 12-14-2023 11:16-0400 Body mass index (BMI) [Ratio] 33.63 kg/m2 Caity Cote [employer]TERRITORY DEVELOPMENT MANAGER Work Phone: [facility] 12-14-2023 11:16-0400 Body temperature 97.3 [degF] Caity Cote [employer].TERRITORY DEVELOPMENT MANAGER Work Phone: [facility] 12-14-2023 11:16-0400 Body weight 80.74 kg Caity Cote [employer].TERRITORY DEVELOPMENT MANAGER Work Phone: [facility] 12-14-2023 11:16-0400 Diastolic blood pressure 61 mm[Hg] Caity Cote [employer].TERRITORY DEVELOPMENT MANAGER Work Phone: [facility] 12-14-2023 11:16-0400 Heart rate 62 /min Caity Cote [employer].TERRITORY DEVELOPMENT MANAGER Work Phone: [facility] 12-14-2023 11:16-0400 SaO2% (BldA) [Mass fraction] 95 % Caity Cote [employer].TERRITORY DEVELOPMENT MANAGER Work Phone: [facility] 12-14-2023 11:16-0400 Systolic blood pressure 93 mm[Hg] Caity Cote TERRITORY DEVELOPMENT MANAGER Work Phone: [facility] 12-14-2023 10:52-0400 Body mass index (BMI) [Ratio] 33.63 kg/m2 Lab/Port Wstr Work Phone: [facility] 12-14-2023 10:52-0400 Body weight 80.74 kg Lab/Port Wstr Work Phone: [facility] 11-24-2023 14:00-0400 Body temperature 97.5 [degF] Treatment Wstr Work Phone: [facility] 11-24-2023 14:00-0400 Diastolic blood pressure 72 mm[Hg] Treatment Wstr Work Phone: [facility] 11-24-2023 14:00-0400 Heart rate 80 /min Treatment Wstr Work Phone: [facility] 11-24-2023 14:00-0400 Systolic blood pressure 109 mm[Hg] Treatment Wstr Work Phone: [facility] 11-23-2023 10:30-0400 Body mass index (BMI) [Ratio] 34.58 kg/m2 Rip Masci DO Work Phone: [facility] 11-23-2023 10:30-0400 Body temperature 98.49 [degF] Rip Masci DO Work Phone: [facility] 11-23-2023 10:30-0400 Body weight 83.01 kg Rip Masci DO Work Phone: [facility] 11-23-2023 10:30-0400 Diastolic blood pressure 63 mm[Hg] Rip Masci DO Work Phone: [facility] 11-23-2023 10:30-0400 Heart rate 60 /min Rip Masci DO Work Phone: [facility] 11-23-2023 10:30-0400 SaO2% (BldA) [Mass fraction] 96 % Rip Masci DO Work Phone: [facility] 11-23-2023 10:30-0400 Systolic blood pressure 117 mm[Hg] Rip Silvestre DO Work Phone: [facility] 11-03-2023 10:43-0400 Body temperature 97.5 [degF] Treatment Wstr Work Phone: [facility] 11-03-2023 10:43-0400 Diastolic blood pressure 71 mm[Hg] Treatment Wstr Work Phone: [facility] 11-03-2023 10:43-0400 Heart rate 56 /min Treatment Wstr Work Phone: [facility] 11-03-2023 10:43-0400 SaO2% (BldA) [Mass fraction] 95 % Treatment Wstr Work Phone: [facility] 11-03-2023 10:43-0400 Systolic blood pressure 122 mm[Hg] Treatment Wstr Work Phone: [facility] 11-02-2023 13:28-0400 Body mass index (BMI) [Ratio] 34.35 kg/m2 Caity Cote [employer].TERRITORY DEVELOPMENT MANAGER Work Phone: [facility] 11-02-2023 13:28-0400 Body temperature 99.3 [degF] Caity Cote [employer].TERRITORY DEVELOPMENT MANAGER Work Phone: [facility] 11-02-2023 13:28-0400 Body weight 82.46 kg Caity Cote [employer].TERRITORY DEVELOPMENT MANAGER Work Phone: [facility] 11-02-2023 13:28-0400 Diastolic blood pressure 72 mm[Hg] Caity Cote [employer].TERRITORY DEVELOPMENT MANAGER Work Phone: [facility] 11-02-2023 13:28-0400 Heart rate 63 /min Caity Cote [employer].TERRITORY DEVELOPMENT MANAGER Work Phone: [facility] 11-02-2023 13:28-0400 SaO2% (BldA) [Mass fraction] 96 % Caity Cote [employer].TERRITORY DEVELOPMENT MANAGER Work Phone: [facility] 11-02-2023 13:28-0400 Systolic blood pressure 113 mm[Hg] Caity Cote ERENPabloTERRITORY DEVELOPMENT MANAGER Work Phone: [facility] 11-02-2023 12:00-0400 Body mass index (BMI) [Ratio] 34.29 kg/m2 Lab/Port Wstr Work Phone: [facility] 11-02-2023 12:00-0400 Body weight 82.33 kg Lab/Port Wstr Work Phone: [facility] 10-13-2023 11:00-0400 Body temperature 98.2 [degF] Treatment Wstr Work Phone: [facility] 10-13-2023 11:00-0400 Diastolic blood pressure 56 mm[Hg] Treatment Wstr Work Phone: [facility] 10-13-2023 11:00-0400 Heart rate 65 /min Treatment Wstr Work Phone: [facility] 10-13-2023 11:00-0400 Systolic blood pressure 123 mm[Hg] Treatment Wstr Work Phone: [facility] 10-11-2023 10:22-0400 Body mass index (BMI) [Ratio] 34.29 kg/m2 Rip Riki DO Work Phone: [facility] 10-11-2023 10:22-0400 Body temperature 97.7 [degF] Rip Masci DO Work Phone: [facility] 10-11-2023 10:22-0400 Body weight 82.33 kg Rip Masci DO Work Phone: [facility] 10-11-2023 10:22-0400 Diastolic blood pressure 71 mm[Hg] Rip Masci DO Work Phone: [facility] 10-11-2023 10:22-0400 Heart rate 52 /min Rip Masci DO Work Phone: [facility] 10-11-2023 10:22-0400 SaO2% (BldA) [Mass fraction] 93 % Rip Masci DO Work Phone: [facility] 10-11-2023 10:22-0400 Systolic blood pressure 112 mm[Hg] Rip Rivers DO Work Phone: [facility] 2023 13:56-0400 Body temperature 97.11 [degF] Meenu Garay MD Work Phone: [facility] 2023 13:56-0400 Diastolic blood pressure 73 mm[Hg] Meenu Garay MD Work Phone: [facility] 2023 13:56-0400 Heart rate 66 /min Meenu Garay MD Work Phone: [facility] 2023 13:56-0400 SaO2% (BldA) [Mass fraction] 97 % Meenu Garay MD Work Phone: [facility] 2023 13:56-0400 Systolic blood pressure 146 mm[Hg] Meenu Garay MD Work Phone: [facility] 09-22-2023 12:33-0400 Body temperature 98.91 [degF] Treatment Wstr Work Phone: [facility] 09-22-2023 12:33-0400 Diastolic blood pressure 64 mm[Hg] Treatment Wstr Work Phone: [facility] 09-22-2023 12:33-0400 Heart rate 63 /min Treatment Wstr Work Phone: [facility] 09-22-2023 12:33-0400 Respiratory rate 20 /min Treatment Wstr Work Phone: [facility] 09-22-2023 12:33-0400 Systolic blood pressure 120 mm[Hg] Treatment Wstr Work Phone: [facility] 09-21-2023 08:34-0400 Body temperature 98.6 [degF] Rip Rivers DO Work Phone: [facility] 09-21-2023 08:34-0400 Body weight 82.33 kg Rip Rivers DO Work Phone: [facility] 09-21-2023 08:34-0400 Diastolic blood pressure 82 mm[Hg] Rip Riki DO Work Phone: [facility] 09-21-2023 08:34-0400 Heart rate 76 /min Rip Masci DO Work Phone: [facility] 09-21-2023 08:34-0400 SaO2% (BldA) [Mass fraction] 95 % Rip Masci DO Work Phone: [facility] 09-21-2023 08:34-0400 Systolic blood pressure 125 mm[Hg] Rip Masci DO Work Phone: [facility] 09-21-2023 08:19-0400 Body weight 82.33 kg Lab/Port Wstr Work Phone: [facility] 08-30-2023 09:02-0400 Body temperature 98.2 [degF] Rip Riki DO Work Phone: [facility] 08-30-2023 09:02-0400 Body weight 84.37 kg Lab/Port Wstr Work Phone: [facility] 08-30-2023 09:02-0400 Diastolic blood pressure 56 mm[Hg] Rip Masci DO Work Phone: [facility] 08-30-2023 09:02-0400 Heart rate 61 /min Rip Riki DO Work Phone: [facility] 08-30-2023 09:02-0400 Systolic blood pressure 113 mm[Hg] Rip Masci DO Work Phone: [facility] 08-26-2023 09:20-0400 Body temperature 98.1 [degF] Meenu Garay MD Work Phone: [facility] 08-26-2023 09:20-0400 Body weight 86.18 kg Meenu Garay MD Work Phone: [facility] 08-26-2023 09:20-0400 Diastolic blood pressure 70 mm[Hg] Meenu Garay MD Work Phone: [facility] 08-26-2023 09:20-0400 Heart rate 62 /min Meenu Garay MD Work Phone: [facility] 08-26-2023 09:20-0400 SaO2% (BldA) [Mass fraction] 97 % Meenu Garay MD Work Phone: [facility] 08-26-2023 09:20-0400 Systolic blood pressure 115 mm[Hg] Meenu Garay MD Work Phone: [facility] 08-17-2023 00:49-0400 Body temperature 98.1 [degF] Dr. Williams Farrell Work Phone: [facility] 08-17-2023 00:49-0400 Diastolic blood pressure 89 mm[Hg] Dr. Williams Farrell Work Phone: [facility] 08-17-2023 00:49-0400 Heart rate 64 /min Dr. Williams Farrell Work Phone: [facility] 08-17-2023 00:49-0400 Respiratory rate 19 /min Dr. Williams Farrell Work Phone: [facility] 08-17-2023 00:49-0400 SaO2% (BldA) [Mass fraction] 94 % Dr. Williams Farrell Work Phone: [facility] 08-17-2023 00:49-0400 Systolic blood pressure 120 mm[Hg] Dr. Williams Farrell Work Phone: [facility] 08-16-2023 21:50-0400 Body height 154.[address] Williams Farrell Work Phone: [facility] 08-16-2023 21:50-0400 Body mass index (BMI) [Ratio] 35.6 kg/m2 Dr. Williams Farrell Work Phone: [facility] 08-16-2023 21:50-0400 Body weight 85.[address] Williams Farrell Work Phone: [facility] 08-11-2023 13:02-0500 Body temperature 97.7 [degF] Treatment Wstr Work Phone: [facility] 08-11-2023 13:02-0500 Diastolic blood pressure 54 mm[Hg] Treatment Wstr Work Phone: [facility] 08-11-2023 13:02-0500 Heart rate 60 /min Treatment Wstr Work Phone: [facility] 08-11-2023 13:02-0500 SaO2% (BldA) [Mass fraction] 97 % Treatment Wstr Work Phone: [facility] 08-11-2023 13:02-0500 Systolic blood pressure 106 mm[Hg] Treatment Wstr Work Phone: [facility] 08-10-2023 09:43-0500 Body temperature 97.7 [degF] Rip Masci DO Work Phone: [facility] 08-10-2023 09:43-0500 Body weight 86.18 kg Rip Masci DO Work Phone: [facility] 08-10-2023 09:43-0500 Diastolic blood pressure 76 mm[Hg] Rip Masci DO Work Phone: [facility] 08-10-2023 09:43-0500 Heart rate 64 /min Rip Masci DO Work Phone: [facility] 08-10-2023 09:43-0500 SaO2% (BldA) [Mass fraction] 98 % Rip Masci DO Work Phone: [facility] 08-10-2023 09:43-0500 Systolic blood pressure 127 mm[Hg] Rip Masci DO Work Phone: [facility] 08-10-2023 09:26-0500 Body weight 86.18 kg Lab/Port Wstr Work Phone: [facility] 07-21-2023 13:45-0500 Body temperature 97.39 [degF] Treatment Wstr Work Phone: [facility] 07-21-2023 13:45-0500 Diastolic blood pressure 60 mm[Hg] Treatment Wstr Work Phone: [facility] 07-21-2023 13:45-0500 Heart rate 64 /min Treatment Wstr Work Phone: [facility] 07-21-2023 13:45-0500 SaO2% (BldA) [Mass fraction] 97 % Treatment Wstr Work Phone: [facility] 07-21-2023 13:45-0500 Systolic blood pressure 120 mm[Hg] Treatment Wstr Work Phone: [facility] 07-20-2023 10:19-0500 Body temperature 97.2 [degF] Canaan Cote [employer].TERRITORY DEVELOPMENT MANAGER Work Phone: [facility] 07-20-2023 10:19-0500 Body weight 84.37 kg Caity Cote [employer].TERRITORY DEVELOPMENT MANAGER Work Phone: [facility] 07-20-2023 10:19-0500 Diastolic blood pressure 63 mm[Hg] Caity Cote [employer].TERRITORY DEVELOPMENT MANAGER Work Phone: [facility] 07-20-2023 10:19-0500 Heart rate 61 /min Canaan Cote [employer].TERRITORY DEVELOPMENT MANAGER Work Phone: [facility] 07-20-2023 10:19-0500 SaO2% (BldA) [Mass fraction] 97 % Canaan Cote [employer].TERRITORY DEVELOPMENT MANAGER Work Phone: [facility] 07-20-2023 10:19-0500 Systolic blood pressure 112 mm[Hg] Canaan Cote [employer].TERRITORY DEVELOPMENT MANAGER Work Phone: [facility] 06-16-2023 09:29-0500 Body height 154.9 cm Williams Oberhauser DO Work Phone: [facility] 06-16-2023 09:29-0500 Body mass index (BMI) [Ratio] 35.52 kg/m2 Williams Oberhauser DO Work Phone: [facility] 06-16-2023 09:29-0500 Body weight 85.28 kg Williams Oberhauser DO Work Phone: [facility] 06-16-2023 09:29-0500 Diastolic blood pressure 66 mm[Hg] Williams Farrell DO Work Phone: [facility] 06-16-2023 09:29-0500 Heart rate 67 /min Williams Farrell DO Work Phone: [facility] 06-16-2023 09:29-0500 Systolic blood pressure 102 mm[Hg] Williams Farrell DO Work Phone: [facility] 05-27-2023 09:35-0500 Body height 154.[address] Mitch Mejia Work Phone: [facility] 05-27-2023 09:35-0500 Body mass index (BMI) [Ratio] 36.1 kg/m2 Dr. Mitch Mejia Work Phone: [facility] 05-27-2023 09:35-0500 Body weight 86.[address] Mitch Mejia Work Phone: [facility] 05-27-2023 09:35-0500 Diastolic blood pressure 61 mm[Hg] Dr. Mitch Mejia Work Phone: [facility] 05-27-2023 09:35-0500 Heart rate 66 /min Dr. Mitch Mejia Work Phone: [facility] 05-27-2023 09:35-0500 Respiratory rate 18 /min Dr. Mitch Mejia Work Phone: [facility] 05-27-2023 09:35-0500 SaO2% (BldA) [Mass fraction] 95 % Dr. Mitch Mejia Work Phone: [facility] 05-27-2023 09:35-0500 Systolic blood pressure 103 mm[Hg] Dr. Mitch Mejia Work Phone: [facility] 04-27-2023 09:00-0500 Body temperature 98.1 [degF] Treatment Wstr Work Phone: [facility] 04-27-2023 09:00-0500 Diastolic blood pressure 55 mm[Hg] Treatment Wstr Work Phone: [facility] 04-27-2023 09:00-0500 Heart rate 70 /min Treatment Wstr Work Phone: [facility] 04-27-2023 09:00-0500 Systolic blood pressure 129 mm[Hg] Treatment Wstr Work Phone: [facility] 04-26-2023 09:19-0500 Body temperature 97.59 [degF] Rip Masci DO Work Phone: [facility] 04-26-2023 09:19-0500 Body weight 87.09 kg Lab/Port Wstr Work Phone: [facility] 04-26-2023 09:19-0500 Diastolic blood pressure 70 mm[Hg] Rip Masci DO Work Phone: [facility] 04-26-2023 09:19-0500 Heart rate 64 /min Rip Masci DO Work Phone: [facility] 04-26-2023 09:19-0500 SaO2% (BldA) [Mass fraction] 96 % Rip Masci DO Work Phone: [facility] 04-26-2023 09:19-0500 Systolic blood pressure 128 mm[Hg] Rip Masci DO Work Phone: [facility] 04-06-2023 08:39-0400 Body temperature 97.59 [degF] Caity Cote [employer].TERRITORY DEVELOPMENT MANAGER Work Phone: [facility] 04-06-2023 08:39-0400 Body weight 88 kg Caity Cote [employer].TERRITORY DEVELOPMENT MANAGER Work Phone: [facility] 04-06-2023 08:39-0400 Diastolic blood pressure 78 mm[Hg] Caity Cote [employer].TERRITORY DEVELOPMENT MANAGER Work Phone: [facility] 04-06-2023 08:39-0400 Heart rate 78 /min Canaan Cote [employer].TERRITORY DEVELOPMENT MANAGER Work Phone: [facility] 04-06-2023 08:39-0400 SaO2% (BldA) [Mass fraction] 99 % Caity Cote [employer].TERRITORY DEVELOPMENT MANAGER Work Phone: [facility] 04-06-2023 08:39-0400 Systolic blood pressure 117 mm[Hg] Caity Cote [employer].TERRITORY DEVELOPMENT MANAGER Work Phone: [facility] 03-17-2023 13:25-0400 Body temperature 97 [degF] Treatment Wstr Work Phone: [facility] 03-17-2023 13:25-0400 Diastolic blood pressure 66 mm[Hg] Treatment Wstr Work Phone: [facility] 03-17-2023 13:25-0400 Heart rate 59 /min Treatment Wstr Work Phone: [facility] 03-17-2023 13:25-0400 Systolic blood pressure 129 mm[Hg] Treatment Wstr Work Phone: [facility] 03-16-2023 09:00-0400 Body weight 87.54 kg Lab/Port Wstr Work Phone: [facility] 02-23-2023 10:41-0400 Body temperature 99 [degF] Meenu Garay MD, MD Work Phone: [facility] 02-23-2023 10:41-0400 Body weight 85.64 kg Meenu Garay MD, MD Work Phone: [facility] 02-23-2023 10:41-0400 Diastolic blood pressure 78 mm[Hg] Meenu Garay MD, MD Work Phone: [facility] 02-23-2023 10:41-0400 Heart rate 62 /min Meenu Garay MD, MD Work Phone: [facility] 02-23-2023 10:41-0400 SaO2% (BldA) [Mass fraction] 95 % Meenu Garay MD, MD Work Phone: [facility] 02-23-2023 10:41-0400 Systolic blood pressure 121 mm[Hg] Meenu Garay MD, MD Work Phone: [facility] 02-23-2023 09:47-0400 Body temperature 99 [degF] Rip Riki DO Work Phone: [facility] 02-23-2023 09:47-0400 Body weight 85.5 kg Rip Masci DO Work Phone: [facility] 02-23-2023 09:47-0400 Diastolic blood pressure 78 mm[Hg] Rip Masci DO Work Phone: [facility] 02-23-2023 09:47-0400 Heart rate 62 /min Rip Jollyi DO Work Phone: [facility] 02-23-2023 09:47-0400 SaO2% (BldA) [Mass fraction] 95 % Rip Riki DO Work Phone: [facility] 02-23-2023 09:47-0400 Systolic blood pressure 121 mm[Hg] Rip Masci DO Work Phone: [facility] 02-23-2023 09:31-0400 Body weight 85.5 kg Lab/Port Wstr Work Phone: [facility] 02-17-2023 15:18-0400 SaO2% (BldA) [Mass fraction] 92 % Dr. Mitch Mejia Work Phone: [facility] 02-17-2023 14:00-0400 Body temperature 98.2 [degF] Dr. Mitch Mejia Work Phone: [facility] 02-17-2023 14:00-0400 Diastolic blood pressure 57 mm[Hg] Dr. Mitch Mejia Work Phone: [facility] 02-17-2023 14:00-0400 Heart rate 65 /min Dr. Mitch Mejia Work Phone: [facility] 02-17-2023 14:00-0400 Respiratory rate 16 /min Dr. Mitch Mejia Work Phone: [facility] 02-17-2023 14:00-0400 Systolic blood pressure 116 mm[Hg] Dr. Mitch Mejia Work Phone: [facility] 02-17-2023 01:40-0400 Body height 154.[address] Mitch Mejia Work Phone: [facility] 02-17-2023 01:40-0400 Body mass index (BMI) [Ratio] 34.1 kg/m2 Dr. Mitch Mejia Work Phone: [facility] 02-17-2023 01:40-0400 Body weight 81.[address] Mitch Mejia Work Phone: [facility] 02-16-2023 23:46-0400 Body temperature 97.9 [degF] Dr. Mitch Mejia Work Phone: [facility] 02-16-2023 23:46-0400 Diastolic blood pressure 69 mm[Hg] Dr. Mitch Mejia Work Phone: [facility] 02-16-2023 23:46-0400 Heart rate 58 /min Dr. Mitch Mejia Work Phone: [facility] 02-16-2023 23:46-0400 Respiratory rate 20 /min Dr. Mitch Mejia Work Phone: [facility] 02-16-2023 23:46-0400 SaO2% (BldA) [Mass fraction] 98 % Dr. Mitch Mejia Work Phone: [facility] 02-16-2023 23:46-0400 Systolic blood pressure 144 mm[Hg] Dr. Mitch Mejia Work Phone: [facility] 02-16-2023 18:09-0400 Body height 154.[address] Mitch Mejia Work Phone: [facility] 02-16-2023 18:09-0400 Body mass index (BMI) [Ratio] 36.1 kg/m2 Dr. Mitch Mejia Work Phone: [facility] 02-16-2023 18:09-0400 Body weight 86.[address] Mitch Mejia Work Phone: [facility] 02-03-2023 09:33-0400 Body temperature 98.91 [degF] Meenu Garay MD, MD Work Phone: [facility] 02-03-2023 09:33-0400 Body weight 85.73 kg Meenu Garay MD, MD Work Phone: [facility] 02-03-2023 09:33-0400 Diastolic blood pressure 88 mm[Hg] Meenu Garay MD, MD Work Phone: [facility] 02-03-2023 09:33-0400 Heart rate 63 /min Meenu Garay MD, MD Work Phone: [facility] 02-03-2023 09:33-0400 Respiratory rate 15 /min Meenu Garay MD, MD Work Phone: [facility] 02-03-2023 09:33-0400 SaO2% (BldA) [Mass fraction] 97 % Meenu Garay MD, MD Work Phone: [facility] 02-03-2023 09:33-0400 Systolic blood pressure 122 mm[Hg] Meenu Garay MD, MD Work Phone: [facility] 02-02-2023 08:35-0400 Body weight 85.73 kg Lab/Port Wstr Work Phone: [facility] 01-13-2023 13:00-0400 Body temperature 98.01 [degF] Treatment Wstr Work Phone: [facility] 01-13-2023 13:00-0400 Diastolic blood pressure 53 mm[Hg] Treatment Wstr Work Phone: [facility] 01-13-2023 13:00-0400 Heart rate 66 /min Treatment Wstr Work Phone: [facility] 01-13-2023 13:00-0400 Systolic blood pressure 112 mm[Hg] Treatment Wstr Work Phone: [facility] 01-12-2023 09:33-0400 Body temperature 97.9 [degF] Rip Masci DO Work Phone: [facility] 01-12-2023 09:33-0400 Body weight 85.5 kg Rip Masci DO Work Phone: [facility] 01-12-2023 09:33-0400 Diastolic blood pressure 68 mm[Hg] Rip Masci DO Work Phone: [facility] 01-12-2023 09:33-0400 Heart rate 66 /min Rip Masci DO Work Phone: [facility] 01-12-2023 09:33-0400 SaO2% (BldA) [Mass fraction] 95 % Rip Masci DO Work Phone: [facility] 01-12-2023 09:33-0400 Systolic blood pressure 110 mm[Hg] Rip Masci DO Work Phone: [facility] 12-22-2022 09:53-0400 Body temperature 98.1 [degF] Rip Masci DO Work Phone: [facility] 12-22-2022 09:53-0400 Body weight 84.6 kg Rip Masci DO Work Phone: [facility] 12-22-2022 09:53-0400 Diastolic blood pressure 64 mm[Hg] Rpi Masci DO Work Phone: [facility] 12-22-2022 09:53-0400 Heart rate 61 /min Rip Masci DO Work Phone: [facility] 12-22-2022 09:53-0400 SaO2% (BldA) [Mass fraction] 97 % Rip Masci DO Work Phone: [facility] 12-22-2022 09:53-0400 Systolic blood pressure 119 mm[Hg] Rip Masci DO Work Phone: [facility] 12-02-2022 09:12-0400 Body temperature 97.59 [degF] Treatment Wstr Work Phone: [facility] 12-02-2022 09:12-0400 Diastolic blood pressure 59 mm[Hg] Treatment Wstr Work Phone: [facility] 12-02-2022 09:12-0400 Heart rate 63 /min Treatment Wstr Work Phone: [facility] 12-02-2022 09:12-0400 Respiratory rate 16 /min Treatment Wstr Work Phone: [facility] 12-02-2022 09:12-0400 SaO2% (BldA) [Mass fraction] 94 % Treatment Wstr Work Phone: [facility] 12-02-2022 09:12-0400 Systolic blood pressure 114 mm[Hg] Treatment Wstr Work Phone: [facility] 12-01-2022 07:57-0400 Body temperature 98.01 [degF] Rip Masci DO Work Phone: [facility] 12-01-2022 07:57-0400 Body weight 86.64 kg Rip Masci DO Work Phone: [facility] 12-01-2022 07:57-0400 Diastolic blood pressure 56 mm[Hg] Rip Masci DO Work Phone: [facility] 12-01-2022 07:57-0400 Heart rate 59 /min Rip Masci DO Work Phone: [facility] 12-01-2022 07:57-0400 SaO2% (BldA) [Mass fraction] 95 % Rip Masci DO Work Phone: [facility] 12-01-2022 07:57-0400 Systolic blood pressure 110 mm[Hg] Rip Masci DO Work Phone: [facility] 11-26-2022 11:14-0400 Body height 154.[address] Mitch Mejia Work Phone: [facility] 11-26-2022 11:14-0400 Body mass index (BMI) [Ratio] 35.6 kg/m2 Dr. Mitch Mejia Work Phone: [facility] 11-26-2022 11:14-0400 Body weight 85.[address] Mitch Mejia Work Phone: [facility] 11-26-2022 11:14-0400 Diastolic blood pressure 65 mm[Hg] Dr. Mitch Mejia Work Phone: [facility] 11-26-2022 11:14-0400 Heart rate 60 /min Dr. Mitch Mejia Work Phone: [facility] 11-26-2022 11:14-0400 Respiratory rate 18 /min Dr. Mitch Mejia Work Phone: [facility] 11-26-2022 11:14-0400 Systolic blood pressure 100 mm[Hg] Dr. Mitch Mejia Work Phone: [facility] 11-11-2022 08:00-0400 Body temperature 98.4 [degF] Treatment Wstr Work Phone: [facility] 11-11-2022 08:00-0400 Diastolic blood pressure 49 mm[Hg] Treatment Wstr Work Phone: [facility] 11-11-2022 08:00-0400 Heart rate 111 /min Treatment Wstr Work Phone: [facility] 11-11-2022 08:00-0400 Respiratory rate 18 /min Treatment Wstr Work Phone: [facility] 11-11-2022 08:00-0400 SaO2% (BldA) [Mass fraction] 100 % Treatment Wstr Work Phone: [facility] 11-11-2022 08:00-0400 Systolic blood pressure 103 mm[Hg] Treatment Wstr Work Phone: [facility] 11-10-2022 09:52-0400 Body height 154.9 cm Rip Riki DO Work Phone: [facility] 11-10-2022 09:52-0400 Body temperature 98.4 [degF] Rip Masci DO Work Phone: [facility] 11-10-2022 09:52-0400 Body weight 85.73 kg Rip Masci DO Work Phone: [facility] 11-10-2022 09:52-0400 Diastolic blood pressure 56 mm[Hg] Rip Masci DO Work Phone: [facility] 11-10-2022 09:52-0400 Heart rate 68 /min Rip Masci DO Work Phone: [facility] 11-10-2022 09:52-0400 Respiratory rate 12 /min Rip Masci DO Work Phone: [facility] 11-10-2022 09:52-0400 SaO2% (BldA) [Mass fraction] 95 % Rip Masci DO Work Phone: [facility] 11-10-2022 09:52-0400 Systolic blood pressure 106 mm[Hg] Rip Masci DO Work Phone: [facility] 11-10-2022 09:41-0400 Body weight 85.73 kg Lab/Port Wstr Work Phone: [facility] 10-20-2022 10:02-0400 Body temperature 98.4 [degF] Rip Masci DO Work Phone: [facility] 10-20-2022 10:02-0400 Body weight 86.18 kg Rip Masci DO Work Phone: [facility] 10-20-2022 10:02-0400 Diastolic blood pressure 61 mm[Hg] Rip Masci DO Work Phone: [facility] 10-20-2022 10:02-0400 Heart rate 60 /min Rip Masci DO Work Phone: [facility] 10-20-2022 10:02-0400 SaO2% (BldA) [Mass fraction] 94 % Rip Masci DO Work Phone: [facility] 10-20-2022 10:02-0400 Systolic blood pressure 119 mm[Hg] Rip Masci DO Work Phone: [facility] 09-30-2022 12:45-0400 Body temperature 96.91 [degF] Treatment Wstr Work Phone: [facility] 09-30-2022 12:45-0400 Diastolic blood pressure 59 mm[Hg] Treatment Wstr Work Phone: [facility] 09-30-2022 12:45-0400 Heart rate 56 /min Treatment Wstr Work Phone: [facility] 09-30-2022 12:45-0400 Systolic blood pressure 118 mm[Hg] Treatment Wstr Work Phone: [facility] 09-30-2022 12:28-0400 Body weight 85.28 kg Treatment Wstr Work Phone: [facility] 09-09-2022 09:00-0400 Body temperature 98.01 [degF] Treatment Wstr Work Phone: [facility] 09-09-2022 09:00-0400 Diastolic blood pressure 53 mm[Hg] Treatment Wstr Work Phone: [facility] 09-09-2022 09:00-0400 Heart rate 62 /min Treatment Wstr Work Phone: [facility] 09-09-2022 09:00-0400 SaO2% (BldA) [Mass fraction] 96 % Treatment Wstr Work Phone: [facility] 09-09-2022 09:00-0400 Systolic blood pressure 106 mm[Hg] Treatment Wstr Work Phone: [facility] 09-08-2022 11:38-0400 Body weight 86.41 kg Rip Masci DO Work Phone: [facility] 09-08-2022 11:38-0400 Diastolic blood pressure 62 mm[Hg] Rip Masci DO Work Phone: [facility] 09-08-2022 11:38-0400 Heart rate 64 /min Rip Masci DO Work Phone: [facility] 09-08-2022 11:38-0400 SaO2% (BldA) [Mass fraction] 97 % Rip Masci DO Work Phone: [facility] 09-08-2022 11:38-0400 Systolic blood pressure 114 mm[Hg] Rip Masci DO Work Phone: [facility] 08-18-2022 10:06-0400 Body height 156.2 cm Rip Masci DO Work Phone: [facility] 08-18-2022 10:06-0400 Body temperature 98.49 [degF] Rip Masci DO Work Phone: [facility] 08-18-2022 10:06-0400 Body weight 85.73 kg Rip Masci DO Work Phone: [facility] 08-18-2022 10:06-0400 Diastolic blood pressure 60 mm[Hg] Rip Masci DO Work Phone: [facility] 08-18-2022 10:06-0400 Heart rate 63 /min Rip Masci DO Work Phone: [facility] 08-18-2022 10:06-0400 Systolic blood pressure 124 mm[Hg] Rip Masci DO Work Phone: [facility] 07-29-2022 08:33-0500 Body temperature 97.59 [degF] Caity Cote [employer].TERRITORY DEVELOPMENT MANAGER Work Phone: [facility] 07-29-2022 08:33-0500 Body weight 86.18 kg Caity Cote [employer].TERRITORY DEVELOPMENT MANAGER Work Phone: [facility] 07-29-2022 08:33-0500 Diastolic blood pressure 56 mm[Hg] Canaan Cote [employer].TERRITORY DEVELOPMENT MANAGER Work Phone: [facility] 07-29-2022 08:33-0500 Heart rate 69 /min Caity Cote [employer].TERRITORY DEVELOPMENT MANAGER Work Phone: [facility] 07-29-2022 08:33-0500 Systolic blood pressure 119 mm[Hg] Caity Cote [employer].TERRITORY DEVELOPMENT MANAGER Work Phone: [facility] 07-08-2022 09:00-0500 Body temperature 96.49 [degF] Treatment Wstr Work Phone: [facility] 07-08-2022 09:00-0500 Diastolic blood pressure 63 mm[Hg] Treatment Wstr Work Phone: [facility] 07-08-2022 09:00-0500 Heart rate 61 /min Treatment Wstr Work Phone: [facility] 07-08-2022 09:00-0500 SaO2% (BldA) [Mass fraction] 97 % Treatment Wstr Work Phone: [facility] 07-08-2022 09:00-0500 Systolic blood pressure 126 mm[Hg] Treatment Wstr Work Phone: [facility] 07-06-2022 08:11-0500 Body temperature 98.4 [degF] Rip Masci DO Work Phone: [facility] 07-06-2022 08:11-0500 Body weight 86.86 kg Lab/Port Wstr Work Phone: [facility] 07-06-2022 08:11-0500 Diastolic blood pressure 66 mm[Hg] Rip Masci DO Work Phone: [facility] 07-06-2022 08:11-0500 Heart rate 60 /min Rip Masci DO Work Phone: [facility] 07-06-2022 08:11-0500 Systolic blood pressure 112 mm[Hg] Rip Masci DO Work Phone: [facility] 06-17-2022 10:00-0500 Body temperature 98.2 [degF] Treatment Wstr Work Phone: [facility] 06-17-2022 10:00-0500 Diastolic blood pressure 56 mm[Hg] Treatment Wstr Work Phone: [facility] 06-17-2022 10:00-0500 Heart rate 63 /min Treatment Wstr Work Phone: [facility] 06-17-2022 10:00-0500 Systolic blood pressure 115 mm[Hg] Treatment Wstr Work Phone: [facility] 06-15-2022 08:33-0500 Body temperature 97.81 [degF] Canaan Cote [employer].TERRITORY DEVELOPMENT MANAGER Work Phone: [facility] 06-15-2022 08:33-0500 Body weight 84.6 kg Canaan Cote [employer].TERRITORY DEVELOPMENT MANAGER Work Phone: [facility] 06-15-2022 08:33-0500 Diastolic blood pressure 68 mm[Hg] Caity Cote [employer].TERRITORY DEVELOPMENT MANAGER Work Phone: [facility] 06-15-2022 08:33-0500 Heart rate 64 /min Canaan Cote [employer].TERRITORY DEVELOPMENT MANAGER Work Phone: [facility] 06-15-2022 08:33-0500 Systolic blood pressure 124 mm[Hg] Caity Cote [employer].TERRITORY DEVELOPMENT MANAGER Work Phone: [facility] 06-15-2022 08:21-0500 Body weight 84.6 kg Lab/Port Wstr Work Phone: [facility] 05-27-2022 10:39-0500 Body temperature 98.6 [degF] Treatment Wstr Work Phone: [facility] 05-27-2022 10:39-0500 Diastolic blood pressure 60 mm[Hg] Treatment Wstr Work Phone: [facility] 05-27-2022 10:39-0500 Heart rate 64 /min Treatment Wstr Work Phone: [facility] 05-27-2022 10:39-0500 Systolic blood pressure 115 mm[Hg] Treatment Wstr Work Phone: [facility] 05-25-2022 08:09-0500 Body temperature 98.4 [degF] Rip Rivers DO Work Phone: [facility] 05-25-2022 08:09-0500 Body weight 85.73 kg Rip Rivers DO Work Phone: [facility] 05-25-2022 08:09-0500 Diastolic blood pressure 61 mm[Hg] Rip Rivers DO Work Phone: [facility] 05-25-2022 08:09-0500 Heart rate 58 /min Rip Rivers DO Work Phone: [facility] 05-25-2022 08:09-0500 SaO2% (BldA) [Mass fraction] 96 % Rip Rivers DO Work Phone: [facility] 05-25-2022 08:09-0500 Systolic blood pressure 126 mm[Hg] Rip Rivers DO Work Phone: [facility] 05-06-2022 10:32-0500 Body temperature 97 [degF] Treatment Wstr Work Phone: [facility] 05-06-2022 10:32-0500 Diastolic blood pressure 78 mm[Hg] Treatment Wstr Work Phone: [facility] 05-06-2022 10:32-0500 Heart rate 62 /min Treatment Wstr Work Phone: [facility] 05-06-2022 10:32-0500 Systolic blood pressure 130 mm[Hg] Treatment Wstr Work Phone: [facility] 04-15-2022 10:28-0500 Body temperature 97.59 [degF] Treatment Wstr Work Phone: [facility] 04-15-2022 10:28-0500 Diastolic blood pressure 60 mm[Hg] Treatment Wstr Work Phone: [facility] 04-15-2022 10:28-0500 Heart rate 60 /min Treatment Wstr Work Phone: [facility] 04-15-2022 10:28-0500 Systolic blood pressure 128 mm[Hg] Treatment Wstr Work Phone: [facility] 04-14-2022 09:16-0500 Body temperature 97.39 [degF] Caity Cote APRN.TERRITORY DEVELOPMENT MANAGER Work Phone: [facility] 04-14-2022 09:16-0500 Body weight 85.28 kg Lab/Port Wstr Work Phone: [facility] 04-14-2022 09:16-0500 Diastolic blood pressure 69 mm[Hg] Caity Cote [employer].TERRITORY DEVELOPMENT MANAGER Work Phone: [facility] 04-14-2022 09:16-0500 Heart rate 61 /min Caity Cote [employer].TERRITORY DEVELOPMENT MANAGER Work Phone: [facility] 04-14-2022 09:16-0500 Systolic blood pressure 127 mm[Hg] Caity Cote [employer].TERRITORY DEVELOPMENT MANAGER Work Phone: [facility] 04-06-2022 08:46-0400 Body height 154.[address] Mitch Mejia Work Phone: [facility] 04-06-2022 08:46-0400 Body mass index (BMI) [Ratio] 35.5 kg/m2 Dr. Mitch Mejia Work Phone: [facility] 04-06-2022 08:46-0400 Body weight 85.[address] Mitch Mejia Work Phone: [facility] 04-06-2022 08:46-0400 Diastolic blood pressure 79 mm[Hg] Dr. Mitch Mejia Work Phone: [facility] 04-06-2022 08:46-0400 Heart rate 58 /min Dr. Mitch Mejia Work Phone: [facility] 04-06-2022 08:46-0400 Respiratory rate 16 /min Dr. Mitch Mejia Work Phone: [facility] 04-06-2022 08:46-0400 SaO2% (BldA) [Mass fraction] 100 % Dr. Mitch Mejia Work Phone: [facility] 04-06-2022 08:46-0400 Systolic blood pressure 140 mm[Hg] Dr. Mitch Mejia Work Phone: [facility] 03-18-2022 11:02-0400 Body temperature 97.59 [degF] Treatment Wstr Work Phone: [facility] 03-18-2022 11:02-0400 Body weight 84.82 kg Treatment Wstr Work Phone: [facility] 03-18-2022 11:02-0400 Diastolic blood pressure 60 mm[Hg] Treatment Wstr Work Phone: [facility] 03-18-2022 11:02-0400 Heart rate 62 /min Treatment Wstr Work Phone: [facility] 03-18-2022 11:02-0400 Systolic blood pressure 112 mm[Hg] Treatment Wstr Work Phone: [facility] 02-25-2022 08:44-0400 Body temperature 98.01 [degF] Treatment Wstr Work Phone: [facility] 02-25-2022 08:44-0400 Diastolic blood pressure 61 mm[Hg] Treatment Wstr Work Phone: [facility] 02-25-2022 08:44-0400 Heart rate 62 /min Treatment Wstr Work Phone: [facility] 02-25-2022 08:44-0400 Systolic blood pressure 120 mm[Hg] Treatment Wstr Work Phone: [facility] 02-24-2022 09:10-0400 Body temperature 98.4 [degF] Caity Cote [employer].TERRITORY DEVELOPMENT MANAGER Work Phone: [facility] 02-24-2022 09:10-0400 Body weight 83.46 kg Canaan Cote [employer].TERRITORY DEVELOPMENT MANAGER Work Phone: [facility] 02-24-2022 09:10-0400 Diastolic blood pressure 65 mm[Hg] Caity Cote [employer].TERRITORY DEVELOPMENT MANAGER Work Phone: [facility] 02-24-2022 09:10-0400 Heart rate 64 /min Canaan Cote [employer].TERRITORY DEVELOPMENT MANAGER Work Phone: [facility] 02-24-2022 09:10-0400 Systolic blood pressure 110 mm[Hg] Caity Cote [employer].TERRITORY DEVELOPMENT MANAGER Work Phone: [facility] 02-04-2022 10:50-0400 Body temperature 98.1 [degF] Treatment Wstr Work Phone: [facility] 02-04-2022 10:50-0400 Diastolic blood pressure 66 mm[Hg] Treatment Wstr Work Phone: [facility] 02-04-2022 10:50-0400 Heart rate 65 /min Treatment Wstr Work Phone: [facility] 02-04-2022 10:50-0400 Respiratory rate 16 /min Treatment Wstr Work Phone: [facility] 02-04-2022 10:50-0400 Systolic blood pressure 127 mm[Hg] Treatment Wstr Work Phone: [facility] 02-03-2022 09:16-0400 Body temperature 98.29 [degF] Rip Masci DO Work Phone: [facility] 02-03-2022 09:16-0400 Body weight 83.23 kg Lab/Port Wstr Work Phone: [facility] 02-03-2022 09:16-0400 Diastolic blood pressure 60 mm[Hg] Rip Masci DO Work Phone: [facility] 02-03-2022 09:16-0400 Heart rate 66 /min Rip Masci DO Work Phone: [facility] 02-03-2022 09:16-0400 Systolic blood pressure 98 mm[Hg] Rip Masci DO Work Phone: [facility] 01-14-2022 08:49-0400 Body temperature 98.01 [degF] Treatment Wstr Work Phone: [facility] 01-14-2022 08:49-0400 Body weight 81.87 kg Treatment Wstr Work Phone: [facility] 01-14-2022 08:49-0400 Diastolic blood pressure 68 mm[Hg] Treatment Wstr Work Phone: [facility] 01-14-2022 08:49-0400 Heart rate 60 /min Treatment Wstr Work Phone: [facility] 01-14-2022 08:49-0400 Systolic blood pressure 134 mm[Hg] Treatment Wstr Work Phone: [facility] 12-24-2021 09:00-0400 Body temperature 97.9 [degF] Treatment Wstr Work Phone: [facility] 12-24-2021 09:00-0400 Diastolic blood pressure 56 mm[Hg] Treatment Wstr Work Phone: [facility] 12-24-2021 09:00-0400 Heart rate 56 /min Treatment Wstr Work Phone: [facility] 12-24-2021 09:00-0400 Respiratory rate 16 /min Treatment Wstr Work Phone: [facility] 12-24-2021 09:00-0400 SaO2% (BldA) [Mass fraction] 96 % Treatment Wstr Work Phone: [facility] 12-24-2021 09:00-0400 Systolic blood pressure 113 mm[Hg] Treatment Wstr Work Phone: [facility] 12-23-2021 09:48-0400 Body temperature 98.1 [degF] Canaan Cote [employer].TERRITORY DEVELOPMENT MANAGER Work Phone: [facility] 12-23-2021 09:48-0400 Body weight 82.1 kg Caity Cote [employer].TERRITORY DEVELOPMENT MANAGER Work Phone: [facility] 12-23-2021 09:48-0400 Diastolic blood pressure 59 mm[Hg] Caity Cote [employer].TERRITORY DEVELOPMENT MANAGER Work Phone: [facility] 12-23-2021 09:48-0400 Heart rate 58 /min Canaan Cote [employer].TERRITORY DEVELOPMENT MANAGER Work Phone: [facility] 12-23-2021 09:48-0400 Systolic blood pressure 122 mm[Hg] Caity Cote [employer].TERRITORY DEVELOPMENT MANAGER Work Phone: [facility] 12-23-2021 09:35-0400 Body weight 82.1 kg Lab/Port Wstr Work Phone: [facility] 12-02-2021 11:21-0400 Body temperature 97.11 [degF] Rip Riki DO Work Phone: [facility] 12-02-2021 11:21-0400 Diastolic blood pressure 63 mm[Hg] Rip Riki DO Work Phone: [facility] 12-02-2021 11:21-0400 Heart rate 65 /min Rip Riki DO Work Phone: [facility] 12-02-2021 11:21-0400 SaO2% (BldA) [Mass fraction] 97 % Rip Riki DO Work Phone: [facility] 12-02-2021 11:21-0400 Systolic blood pressure 126 mm[Hg] Rip Riki DO Work Phone: [facility] 12-02-2021 11:00-0400 Body weight 82.56 kg Lab/Port Wstr Work Phone: [facility] 11-12-2021 13:12-0400 Body temperature 97.7 [degF] Treatment Wstr Work Phone: [facility] 11-12-2021 13:12-0400 Diastolic blood pressure 57 mm[Hg] Treatment Wstr Work Phone: [facility] 11-12-2021 13:12-0400 Heart rate 66 /min Treatment Wstr Work Phone: [facility] 11-12-2021 13:12-0400 Respiratory rate 18 /min Treatment Wstr Work Phone: [facility] 11-12-2021 13:12-0400 SaO2% (BldA) [Mass fraction] 98 % Treatment Wstr Work Phone: [facility] 11-12-2021 13:12-0400 Systolic blood pressure 121 mm[Hg] Treatment Wstr Work Phone: [facility] 11-11-2021 10:27-0400 Body temperature 98.1 [degF] Rip Riki DO Work Phone: [facility] 11-11-2021 10:27-0400 Body weight 83.46 kg Rip Rivers DO Work Phone: [facility] 11-11-2021 10:27-0400 Diastolic blood pressure 68 mm[Hg] Rip Jollyi DO Work Phone: [facility] 11-11-2021 10:27-0400 Heart rate 60 /min Rip Rivers DO Work Phone: [facility] 11-11-2021 10:27-0400 SaO2% (BldA) [Mass fraction] 97 % Rip Rivers DO Work Phone: [facility] 11-11-2021 10:27-0400 Systolic blood pressure 137 mm[Hg] Rip Jollyi DO Work Phone: [facility] [facility] 11-09-2021 13:51-0400 Body temperature 97.2 [degF] Treatment Wstr Work Phone: [facility] 11-09-2021 13:51-0400 Diastolic blood pressure 56 mm[Hg] Treatment Wstr Work Phone: [facility] 11-09-2021 13:51-0400 Heart rate 66 /min Treatment Wstr Work Phone: [facility] 11-09-2021 13:51-0400 Systolic blood pressure 126 mm[Hg] Treatment Wstr Work Phone: [facility] 10-22-2021 09:55-0400 Diastolic blood pressure 62 mm[Hg] Treatment Wstr Work Phone: [facility] 10-22-2021 09:55-0400 Respiratory rate 63 /min Treatment Wstr Work Phone: [facility] 10-22-2021 09:55-0400 Systolic blood pressure 130 mm[Hg] Treatment Wstr Work Phone: [facility] 10-21-2021 09:16-0400 Body temperature 98.4 [degF] Caity Cote APRN.TERRITORY DEVELOPMENT MANAGER Work Phone: [facility] 10-21-2021 09:16-0400 Body weight 83.23 kg Caity Cote [employer].TERRITORY DEVELOPMENT MANAGER Work Phone: [facility] 10-21-2021 09:16-0400 Diastolic blood pressure 65 mm[Hg] Caity Cote [employer].TERRITORY DEVELOPMENT MANAGER Work Phone: [facility] 10-21-2021 09:16-0400 Heart rate 63 /min Caity Cote [employer].TERRITORY DEVELOPMENT MANAGER Work Phone: [facility] 10-21-2021 09:16-0400 Systolic blood pressure 120 mm[Hg] Caity Cote [employer].TERRITORY DEVELOPMENT MANAGER Work Phone: [facility] 10-21-2021 09:02-0400 Body weight 83.23 kg Lab/Port Wstr Work Phone: [facility] 10-01-2021 09:00-0400 Body temperature 97.7 [degF] Treatment Wstr Work Phone: [facility] 10-01-2021 09:00-0400 Diastolic blood pressure 59 mm[Hg] Treatment Wstr Work Phone: [facility] 10-01-2021 09:00-0400 Heart rate 66 /min Treatment Wstr Work Phone: [facility] 10-01-2021 09:00-0400 Systolic blood pressure 124 mm[Hg] Treatment Wstr Work Phone: [facility] 09-30-2021 09:46-0400 Body temperature 98.49 [degF] Rip Masci DO Work Phone: [facility] 09-30-2021 09:46-0400 Body weight 84.14 kg Lab/Port Wstr Work Phone: [facility] 09-30-2021 09:46-0400 Diastolic blood pressure 59 mm[Hg] Rip Masci DO Work Phone: [facility] 09-30-2021 09:46-0400 Heart rate 66 /min Rip Masci DO Work Phone: [facility] 09-30-2021 09:46-0400 SaO2% (BldA) [Mass fraction] 97 % Rip Rivers DO Work Phone: [facility] 09-30-2021 09:46-0400 Systolic blood pressure 103 mm[Hg] Rip Rivers DO Work Phone: [facility] 09-15-2021 08:54-0400 Body height 154.[address] Mitch Mejia Work Phone: [facility] Work Phone: 09-15-2021 08:54-0400 Body mass index (BMI) [Ratio] 35.9 kg/m2 Dr. Mitch Mejia Work Phone: [facility] Work Phone: 09-15-2021 08:54-0400 Body weight 86.[address] Mitch Mejia Work Phone: [facility] Work Phone: 09-15-2021 08:54-0400 Diastolic blood pressure 72 mm[Hg] Dr. Mitch Mejia Work Phone: [facility] Work Phone: 09-15-2021 08:54-0400 Heart rate 62 /min Dr. Mitch Mejia Work Phone: [facility] Work Phone: 09-15-2021 08:54-0400 Respiratory rate 16 /min Dr. Mitch Mejia Work Phone: [facility] Work Phone: 09-15-2021 08:54-0400 SaO2% (BldA) [Mass fraction] 94 % Dr. Mitch Mejia Work Phone: [facility] Work Phone: 09-15-2021 08:54-0400 Systolic blood pressure 127 mm[Hg] Dr. Mitch Mejia Work Phone: [facility] Work Phone: 09-15-2021 08:54-0400 Body height 154.[address] Mitch Mejia Work Phone: [facility] Work Phone: 09-15-2021 08:54-0400 Body mass index (BMI) [Ratio] 35.9 kg/m2 Dr. Mitch Mejia Work Phone: [facility] Work Phone: 09-15-2021 08:54-0400 Body weight 86.[address] Mitch Mejia Work Phone: [facility] Work Phone: 09-15-2021 08:54-0400 Diastolic blood pressure 72 mm[Hg] Dr. Mitch Mejia Work Phone: [facility] Work Phone: 09-15-2021 08:54-0400 Heart rate 62 /min Dr. Mitch Mejia Work Phone: [facility] Work Phone: 09-15-2021 08:54-0400 Respiratory rate 16 /min Dr. Mitch Mejia Work Phone: [facility] Work Phone: 09-15-2021 08:54-0400 SaO2% (BldA) [Mass fraction] 94 % Dr. Mitch Mejia Work Phone: [facility] Work Phone: 09-15-2021 08:54-0400 Systolic blood pressure 127 mm[Hg] Dr. Mitch Mejia Work Phone: [facility] Work Phone: 09-10-2021 08:00-0400 Body temperature 97.39 [degF] Treatment Wstr Work Phone: [facility] 09-10-2021 08:00-0400 Diastolic blood pressure 67 mm[Hg] Treatment Wstr Work Phone: [facility] 09-10-2021 08:00-0400 Heart rate 74 /min Treatment Wstr Work Phone: [facility] 09-10-2021 08:00-0400 Systolic blood pressure 142 mm[Hg] Treatment Wstr Work Phone: [facility] 09-02-2021 10:21-0400 Body temperature 98.4 [degF] Rip [employer] DO Work Phone: [facility] 09-02-2021 10:21-0400 Body weight 86.64 kg Rip [employer] DO Work Phone: [facility] 09-02-2021 10:21-0400 Diastolic blood pressure 73 mm[Hg] Rip [employer] DO Work Phone: [facility] 09-02-2021 10:21-0400 Heart rate 61 /min Rip [employer] DO Work Phone: [facility] 09-02-2021 10:21-0400 SaO2% (BldA) [Mass fraction] 96 % Rip [employer] DO Work Phone: [facility] 09-02-2021 10:21-0400 Systolic blood pressure 120 mm[Hg] Rip [employer] DO Work Phone: [facility] 12-01-2016 15:30-0400 Heart rate 68 /min [facility] Work Phone: 12-01-2016 14:42-0400 BMI (Body Mass Index) 32.32 kg/m2 [facility] Work Phone: 12-01-2016 14:42-0400 BP Diastolic 60 mm[Hg] Beth Fernandez [facility] Work Phone: 12-01-2016 14:42-0400 BP Systolic 120 mm[Hg] Beth Fernandez [facility] Work Phone: 12-01-2016 14:42-0400 Height 158.75 cm Beth Fernandez [facility] Work Phone: 12-01-2016 14:42-0400 Pulse (Heart Rate) 76 /min Beth Fernandez [facility] Work Phone: 12-01-2016 14:42-0400 Respiratory Rate 20 /min Beth Fernandez [facility] Work Phone: 12-01-2016 14:42-0400 Weight 81.47 kg Beth Fernandez [facility] Work Phone: Encounters Encounter Date Encounter Type Care Provider Facility Start: 12-19-2024 ambulatory Caity Cote COMMUNICATIONS EDITOR Faci lity:[facility] Start: 12-13-2024 End: 12-13-2024 ambulatory Treatment Rm 4 [facility] Wstr Work Phone: Hematology/Oncology Comment on above: Malignant neoplasm o f lower-inner quadrant of right breast of female, estrogen receptor positive (HCC) (Primary Dx); Malignant neoplasm metastatic to lung, unspecified laterality (HCC); Malignant neoplasm metastatic to bone (HCC); HER2-positive carcinoma of breast (HCC) Start: 12-12-2024 End: 12-12-2024 Patient encounter procedure Caity Cote [employer].TERRITORY DEVELOPMENT MANAGER Work Phone: Hematology/Oncology Start: 12-12-2024 End: 12-12-2024 ambulatory Lab/Port [facility] Wstr Work Phone: Hematology/Oncology Comment on above: Malignant neoplasm o f lower-inner quadrant of right breast of female, estrogen receptor positive (HCC) (Primary Dx); HER2-positive carcinoma of breast (HCC); Malignant neoplasm metastatic to bone (HCC) Malignant neoplasm o f lower-inner quadrant of right breast of female, estrogen receptor positive (HCC) (Primary Dx); HER2-positive carcinoma of breast (HCC); Malignant neoplasm metastatic to bone (HCC); Malignant neoplasm metastatic to both lungs (HCC); Chemotherapy-induced cardiomyopathy (HCC) Start: 12-05-2024 End: 12-05-2024 Specialty Pharmacy Nallely Aguilera [facility] Comment on above: SPP Oral Oncology/he matology - Medication Refill (Capecitabine 500 mg) Start: 11-22-2024 End: 11-22-2024 ambulatory Treatment Rm 8 [facility] Wstr Work Phone: Hematology/Oncology Comment on above: Malignant neoplasm o f lower-inner quadrant of right breast of female, estrogen receptor positive (HCC) (Primary Dx); Malignant neoplasm metastatic to lung, unspecified laterality (HCC); Malignant neoplasm metastatic to bone (HCC); HER2-positive carcinoma of breast (HCC) Start: 11-21-2024 End: 11-21-2024 Patient encounter procedure Caity Cote APRN.TERRITORY DEVELOPMENT MANAGER Work Phone: Hematology/Oncology Start: 11-21-2024 End: 11-21-2024 ambulatory Lab/Port [facility] W[facility] Work Phone: Hematology/Oncology Comment on above: Malignant neoplasm o f lower-inner quadrant of right breast of female, estrogen receptor positive (HCC); HER2-positive carcinoma of breast (HCC); Malignant neoplasm metastatic to bone (HCC); Malignant neoplasm metastatic to both lungs (HCC) Malignant neoplasm o f lower-inner quadrant of right breast of female, estrogen receptor positive (HCC) (Primary Dx); HER2-positive carcinoma of breast (HCC); Malignant neoplasm metastatic to bone (HCC); Malignant neoplasm metastatic to both lungs (HCC) Start: 11-15-2024 End: 11-15-2024 Specialty Pharmacy Nallely Lockwood [facility] Comment on above: SPP Oral Oncology/he matology - Medication Refill (Capecitabine 500mg) Start: 11-14-2024 End: 11-14-2024 Refill Rip Rivers DO Work Phone: Hematology/Oncology Comment on above: Refill Request Start: 11-09-2024 End: 11-09-2024 Refill Rip Rivers DO Work Phone: Hematology/Oncology Comment on above: Refill Request Start: 11-01-2024 End: 11-01-2024 ambulatory Treatment 4 [facility] Wstr Work Phone: Hematology/Oncology Comment on above: Malignant neoplasm o f lower-inner quadrant of right breast of female, estrogen receptor positive (HCC) (Primary Dx); Malignant neoplasm metastatic to lung, unspecified laterality (HCC); Malignant neoplasm metastatic to bone (HCC); HER2-positive carcinoma of breast (HCC) Start: 10-31-2024 End: 10-31-2024 Patient encounter procedure Caity Cote [employer].TERRITORY DEVELOPMENT MANAGER Work Phone: Hematology/Oncology Start: 10-31-2024 End: 10-31-2024 ambulatory Lab/Port [facility] Work Phone: Hematology/Oncology Comment on above: Malignant neoplasm o f lower-inner quadrant of right breast of female, estrogen receptor positive (HCC) (Primary Dx); Malignant neoplasm metastatic to lung, unspecified laterality (HCC); Malignant neoplasm metastatic to bone (HCC); HER2-positive carcinoma of breast (HCC); Malignant neoplasm metastatic to both lungs (HCC) Malignant neoplasm o f lower-inner quadrant of right breast of female, estrogen receptor positive (HCC) (Primary Dx); Malignant neoplasm metastatic to bone (HCC); Malignant neoplasm metastatic to lung, unspecified laterality (HCC) Start: 10-11-2024 End: 10-11-2024 ambulatory Treatment [address] Wstr Work Phone: Hematology/Oncology Comment on above: Malignant neoplasm o f lower-inner quadrant of right breast of female, estrogen receptor positive (HCC) (Primary Dx); Malignant neoplasm metastatic to lung, unspecified laterality (HCC); Malignant neoplasm metastatic to bone (HCC); HER2-positive carcinoma of breast (HCC); 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) Start: 10-10-2024 End: 10-10-2024 Patient encounter procedure Caity Cote [employer].TERRITORY DEVELOPMENT MANAGER Work Phone: Hematology/Oncology Start: 10-10-2024 End: 10-10-2024 ambulatory Lab/Port [facility] Wstr Work Phone: Hematology/Oncology Comment on above: Malignant neoplasm o f lower-inner quadrant of right breast of female, estrogen receptor positive (HCC); Malignant neoplasm metastatic to lung, unspecified laterality (HCC); Malignant neoplasm metastatic to bone (HCC); HER2-positive carcinoma of breast (HCC); Malignant neoplasm metastatic to both lungs (HCC) Malignant neoplasm o f lower-inner quadrant of right breast of female, estrogen receptor positive (HCC) (Primary Dx); HER2-positive carcinoma of breast (HCC); Malignant neoplasm metastatic to bone (HCC) Start: 10-08-2024 End: 10-08-2024 Tony Rivers DO Work Phone: Hematology/Oncology Comment on above: Refill Request Start: 10-03-2024 End: 10-03-2024 Patient encounter procedure Quita Hoff Work Phone: Hematology/Oncology Start: 10-03-2024 End: 10-03-2024 ambulatory Lab/Port [facility] Work Phone: Hematology/Oncology Comment on above: Malignant neoplasm o f lower-inner quadrant of right breast of female, estrogen receptor positive (HCC); Malignant neoplasm metastatic to lung, unspecified laterality (HCC); Malignant neoplasm metastatic to bone (HCC); HER2-positive carcinoma of breast (HCC); Malignant neoplasm metastatic to both lungs (HCC) Malignant neoplasm o f lower-inner quadrant of right breast of female, estrogen receptor positive (HCC) (Primary Dx); HER2-positive carcinoma of breast (HCC); Malignant neoplasm metastatic to lung, unspecified laterality (HCC) Start: 2024 End: 2024 Assay of hemosiderin, quant Isac Billingsley MD Work Phone: [facility] Work Phone: Start: 2024 End: 2024 Patient encounter procedure Isac Billingsley MD Work Phone: [facility] Comment on above: Routine general medi romnaa examination at health care facility (Primary Dx); Malignant neoplasm metastatic to both lungs; Bronchitis; History of right breast cancer; Heart disease Start: 2024 End: 2024 ambulatory [facility] Start: 2024 End: 2024 Encounter for general adult medical examination without abnormal findings [facility] Start: 09-26-2024 End: 09-26-2024 Telephone encounter Rip Rivers DO Work Phone: Hematology/Oncology Comment on above: Fever Start: 09-26-2024 End: 09-26-2024 ambulatory [facility] Facility:[facility] Start: 09-17-2024 End: 09-17-2024 Specialty Pharmacy Nallely Lockwood [facility] Comment on above: SPP Oral Oncology/he matology - Medication Refill (Capecitabine 500mg) Start: 09-14-2024 End: 09-14-2024 ambulatory [facility] Provider Hematology/Oncology Comment on above: Echo Start: 09-14-2024 End: 09-14-2024 E-mail encounter from caregiver [facility] Provider Hematology/Oncology Start: 09-13-2024 Non-patient / Non-visit [facility] Connell [facility] Start: 09-13-2024 End: 09-13-[address] Rip Rivers DO Work Phone: [facility] Work Phone: Start: 09-13-2024 End: 09-13-[address] Rip Rivers DO -Cardiovascular Services Work Phone: Start: 09-13-2024 End: 09-13-2024 ambulatory Rip Rivers Facility:[facility] Start: 09-06-2024 End: 09-06-2024 ambulatory Treatment Rm 6 [facility]str Work Phone: Hematology/Oncology Comment on above: Malignant neoplasm o f lower-inner quadrant of right breast of female, estrogen receptor positive (HCC) (Primary Dx); Malignant neoplasm metastatic to lung, unspecified laterality (HCC); Malignant neoplasm metastatic to bone (HCC); HER2-positive carcinoma of breast (HCC) Start: 09-05-2024 End: 09-05-2024 Patient encounter procedure Caity Cote APRN.CNP Work Phone: Hematology/Oncology Start: 09-05-2024 End: 09-05-2024 ambulatory Lab/Port [facility] Work Phone: Hematology/Oncology Comment on above: Malignant neoplasm o f lower-inner quadrant of right breast of female, estrogen receptor positive (HCC); Malignant neoplasm metastatic to lung, unspecified laterality (HCC); Malignant neoplasm metastatic to bone (HCC); HER2-positive carcinoma of breast (HCC); Malignant neoplasm metastatic to both lungs (HCC) Malignant neoplasm o f lower-inner quadrant of right breast of female, estrogen receptor positive (HCC) (Primary Dx); Malignant neoplasm metastatic to bone (HCC); HER2-positive carcinoma of breast (HCC); Chemotherapy-induced neuropathy (HCC) Start: 08-30-2024 End: 08-30-2024 ambulatory Lab/Port [facility] Work Phone: Hematology/Oncology Comment on above: Malignant neoplasm o f lower-inner quadrant of right breast of female, estrogen receptor positive (HCC) (Primary Dx); Malignant neoplasm metastatic to lung, unspecified laterality (HCC); Malignant neoplasm metastatic to bone (HCC); HER2-positive carcinoma of breast (HCC); Malignant neoplasm metastatic to both lungs (HCC) Start: 08-30-2024 End: 08-30-2024 Subsequent hospital visit by physician [facility] [employer] Work Phone: Radiology Comment on above: History of thyroid n odule [Z86.39] Malignant neoplasm o f lower-inner quadrant of right breast of female, estrogen receptor positive (HCC) [C50.311, Z17.0] Start: 08-29-2024 End: 08-29-2024 Telephone encounter Rip Rivers DO Work Phone: Hematology/Oncology Comment on above: Appointment Start: 08-27-2024 End: 08-27-2024 Specialty Pharmacy Nallely Lockwood [facility] Comment on above: SPP Oral Oncology/he matology - Medication Refill (Capecitabine 500mg) Start: 08-16-2024 End: 08-16-2024 ambulatory Treatment Rm 4 [facility] W[facility] Work Phone: Hematology/Oncology Comment on above: Malignant neoplasm o f lower-inner quadrant of right breast of female, estrogen receptor positive (HCC) (Primary Dx); Malignant neoplasm metastatic to lung, unspecified laterality (HCC); Malignant neoplasm metastatic to bone (HCC); HER2-positive carcinoma of breast (HCC) Start: 08-15-2024 End: 08-15-2024 Office outpatient visit 25 minutes Rip Rivers DO Work Phone: Hematology/Oncology Comment on above: Encounter for monito ring cardiotoxic drug therapy (Primary Dx); Malignant neoplasm of lower-inner quadrant of right breast of female, estrogen receptor positive (HCC); Malignant neoplasm metastatic to bone (HCC); Malignant neoplasm metastatic to both lungs (HCC); Chemotherapy-induced neuropathy (HCC); 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); Drug rash; History of thyroid nodule Start: 08-15-2024 End: 08-15-2024 [facility] Work Phone: Hematology/Oncology Comment on above: Malignant neoplasm o f lower-inner quadrant of right breast of female, estrogen receptor positive (HCC); Malignant neoplasm metastatic to lung, unspecified laterality (HCC); Malignant neoplasm metastatic to bone (HCC); HER2-positive carcinoma of breast (HCC); Malignant neoplasm metastatic to both lungs (HCC) Start: 08-07-2024 End: 08-07-2024 Refill Rip Rivers DO Work Phone: Hematology/Oncology Comment on above: Refill Request Start: 08-06-2024 End: 08-07-2024 Refill Caity Cote APRN.CNP Work Phone: Hematology/Oncology Comment on above: Refill Request Start: 07-26-2024 End: 07-26-2024 ambulatory Treatment [address] Wstr Work Phone: Hematology/Oncology Comment on above: Malignant neoplasm o f lower-inner quadrant of right breast of female, estrogen receptor positive (HCC) (Primary Dx); Malignant neoplasm metastatic to lung, unspecified laterality (HCC); Malignant neoplasm metastatic to bone (HCC); HER2-positive carcinoma of breast (HCC) Start: 07-25-2024 End: 07-25-2024 Patient encounter procedure Quita Hoff Work Phone: Hematology/Oncology Start: 07-25-2024 End: 07-25-2024 ambulatory Lab/Port [facility] Wstr Work Phone: Hematology/Oncology Comment on above: Malignant neoplasm o f lower-inner quadrant of right breast of female, estrogen receptor positive (HCC) (Primary Dx); Malignant neoplasm metastatic to lung, unspecified laterality (HCC); Malignant neoplasm metastatic to bone (HCC); HER2-positive carcinoma of breast (HCC); Malignant neoplasm metastatic to both lungs (HCC) Malignant neoplasm o f lower-inner quadrant of right breast of female, estrogen receptor positive (HCC) (Primary Dx); 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) Start: 07-17-2024 End: 07-27-2024 Telephone encounter Elisha WHARTON Hematology/Oncology Comment on above: Melina Assistance Start: 07-16-2024 End: 07-18-2024 Specialty Pharmacy Nallely Aguilera [facility] Comment on above: SPP Oral Oncology/he matology - Medication Refill (Capecitabine 500mg) Refill Request Start: 07-05-2024 End: 07-05-2024 ambulatory Treatment Rm 4 [facility] W[facility] Work Phone: Hematology/Oncology Comment on above: Malignant neoplasm o f lower-inner quadrant of right breast of female, estrogen receptor positive (HCC) (Primary Dx); Malignant neoplasm metastatic to lung, unspecified laterality (HCC); Malignant neoplasm metastatic to bone (HCC); HER2-positive carcinoma of breast (HCC); Chemotherapy induced diarrhea Start: 07-04-2024 End: 07-04-2024 Telephone encounter Elisha WHARTON Hematology/Oncology Comment on above: 2024 Melina Patient Assistance Start: 07-04-2024 End: 07-04-2024 Patient encounter procedure Caity Cote [employer].TERRITORY DEVELOPMENT MANAGER Work Phone: Hematology/Oncology Start: 07-04-2024 End: 07-04-2024 ambulatory Lab/Port [facility] Work Phone: Hematology/Oncology Comment on above: Malignant neoplasm m etastatic to bone (HCC) (Primary Dx); Malignant neoplasm of lower-inner quadrant of right breast of female, estrogen receptor positive (HCC); Malignant neoplasm metastatic to lung, unspecified laterality (HCC); HER2-positive carcinoma of breast (HCC); Malignant neoplasm metastatic to both lungs (HCC) Malignant neoplasm o f lower-inner quadrant of right breast of female, estrogen receptor positive (HCC) (Primary Dx); Malignant neoplasm metastatic to bone (HCC); Malignant neoplasm metastatic to both lungs (HCC); 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); 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) Start: 06-29-2024 End: 06-29-2024 Specialty Pharmacy Lele Tucker [facility] Comment on above: SPP Oral Oncology/he matology - Medication Refill (Capecitabine 500mg) Medication Request Start: 06-14-2024 End: 06-14-2024 ambulatory Treatment Rm 5 [facility] [employer] Work Phone: Hematology/Oncology Comment on above: Malignant neoplasm o f lower-inner quadrant of right breast of female, estrogen receptor positive (HCC) (Primary Dx); Malignant neoplasm metastatic to lung, unspecified laterality (HCC); Malignant neoplasm metastatic to bone (HCC); HER2-positive carcinoma of breast (HCC); 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) Start: 06-13-2024 End: 06-13-2024 Office outpatient visit 25 minutes Rip Rivers DO Work Phone: Hematology/Oncology Comment on above: Malignant neoplasm o f lower-inner quadrant of right breast of female, estrogen receptor positive (HCC) (Primary Dx); Malignant neoplasm metastatic to bone (HCC); Malignant neoplasm metastatic to both lungs (HCC); Chemotherapy induced cardiomyopathy (HCC); 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); Drug rash; History of thyroid nodule Start: 06-13-2024 End: 06-13-2024 ambulatory Lab/Port [facility] [employer] Work Phone: Hematology/Oncology Comment on above: Malignant neoplasm o f lower-inner quadrant of right breast of female, estrogen receptor positive (HCC); Malignant neoplasm metastatic to lung, unspecified laterality (HCC); Malignant neoplasm metastatic to bone (HCC); HER2-positive carcinoma of breast (HCC); Malignant neoplasm metastatic to both lungs (HCC) Start: 06-04-2024 End: 06-04-2024 Specialty Pharmacy Nallely Lockwood [facility] Comment on above: SPP Oral Oncology/he matology - Medication Refill (Capecitabine) Start: 06-01-2024 End: 06-03-2024 Refill Rip Rivers DO Work Phone: Hematology/Oncology Comment on above: Refill Request Start: 05-28-2024 End: 07-05-2024 Telephone encounter Rip Rivers DO Work Phone: [address] [place] [address] Start: 05-24-2024 End: 05-24-2024 ambulatory Treatment Rm 4 [facility] [employer] Work Phone: Hematology/Oncology Comment on above: Malignant neoplasm o f lower-inner quadrant of right breast of female, estrogen receptor positive (HCC) (Primary Dx); Malignant neoplasm metastatic to lung, unspecified laterality (HCC); Malignant neoplasm metastatic to bone (HCC); HER2-positive carcinoma of breast (HCC) Start: 05-23-2024 End: 05-23-2024 Patient encounter procedure Rip Rivers DO Work Phone: Hematology/Oncology Start: 05-23-2024 End: 05-23-2024 ambulatory Lab[facility] Work Phone: Hematology/Oncology Comment on above: Malignant neoplasm o f lower-inner quadrant of right breast of female, estrogen receptor positive (HCC); Malignant neoplasm metastatic to lung, unspecified laterality (HCC); Malignant neoplasm metastatic to bone (HCC); HER2-positive carcinoma of breast (HCC); Malignant neoplasm metastatic to both lungs (HCC) Malignant neoplasm o f lower-inner quadrant of right breast of female, estrogen receptor positive (HCC) (Primary Dx); Malignant neoplasm metastatic to bone (HCC); Malignant neoplasm metastatic to both lungs (HCC); Chemotherapy induced cardiomyopathy (HCC); 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); Drug rash; Abnormal weight loss; History of thyroid nodule Start: 05-21-2024 End: 05-21-2024 ambulatory Tanvi Antony NP [facility] Start: 05-14-2024 End: 05-14-2024 Specialty Pharmacy Nallely Aguilera [facility] Comment on above: SPP Oral Oncology/he matology - Medication Refill (Capecitabine) Start: 05-04-2024 End: 05-04-2024 ambulatory Treatment Rm 2 [facility] Work Phone: Hematology/Oncology Comment on above: Malignant neoplasm o f lower-inner quadrant of right breast of female, estrogen receptor positive (HCC) (Primary Dx); Malignant neoplasm metastatic to lung, unspecified laterality (HCC); Malignant neoplasm metastatic to bone (HCC); HER2-positive carcinoma of breast (HCC) Start: 05-04-2024 End: 05-04-2024 Refill Rip Rivers DO Work Phone: Hematology/Oncology Comment on above: Refill Request Start: 05-02-2024 End: 05-02-2024 Office outpatient visit 25 minutes Rip Rivers DO Work Phone: Hematology/Oncology Comment on above: Malignant neoplasm o f lower-inner quadrant of right breast of female, estrogen receptor positive (HCC) (Primary Dx); Malignant neoplasm metastatic to lung, unspecified laterality (HCC); Malignant neoplasm metastatic to bone (HCC); Drug rash; Chemotherapy induced cardiomyopathy (HCC); 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) Start: 05-02-2024 End: 05-02-2024 ambulatory Lab[facility] [facility] Work Phone: Hematology/Oncology Comment on above: Malignant neoplasm o f lower-inner quadrant of right breast of female, estrogen receptor positive (HCC); Malignant neoplasm metastatic to lung, unspecified laterality (HCC); Malignant neoplasm metastatic to bone (HCC); HER2-positive carcinoma of breast (HCC); Malignant neoplasm metastatic to both lungs (HCC) Start: 04-24-2024 End: 04-24-2024 ambulatory Lab[facility] Work Phone: Hematology/Oncology Comment on above: Malignant neoplasm o f lower-inner quadrant of right breast of female, estrogen receptor positive (HCC) (Primary Dx) Start: 04-24-2024 End: 04-24-2024 Subsequent hospital visit by physician [facility] Cat Scan Comment on above: Malignant neoplasm o f lower-inner quadrant of right breast of female, estrogen receptor positive (HCC) [C50.311, Z17.0] Start: 04-23-2024 End: 04-23-2024 Telephone encounter Rip Rivers DO Work Phone: Hematology/Oncology Comment on above: Appointment Start: 04-20-2024 End: 04-20-2024 Specialty Pharmacy Nallely Lockwood [facility] Comment on above: SPP Oral Oncology/he matology - Medication Refill (Capecitabine ) Start: 04-12-2024 End: 04-12-2024 ambulatory Treatment Rm 7 [facility] Work Phone: Hematology/Oncology Comment on above: Malignant neoplasm o f lower-inner quadrant of right breast of female, estrogen receptor positive (HCC) (Primary Dx); Malignant neoplasm metastatic to lung, unspecified laterality (HCC); Malignant neoplasm metastatic to bone (HCC); HER2-positive carcinoma of breast (HCC); Chemotherapy induced diarrhea Start: 04-11-2024 End: 04-11-2024 Patient encounter procedure Caity Cote APRN.TERRITORY DEVELOPMENT MANAGER Work Phone: Hematology/Oncology Start: 04-11-2024 End: 04-11-2024 ambulatory Lab/[place] [facility] Work Phone: Hematology/Oncology Comment on above: Malignant neoplasm o f lower-inner quadrant of right breast of female, estrogen receptor positive (HCC) (Primary Dx); Malignant neoplasm metastatic to lung, unspecified laterality (HCC); Malignant neoplasm metastatic to bone (HCC); HER2-positive carcinoma of breast (HCC); Malignant neoplasm metastatic to both lungs (HCC) Malignant neoplasm o f lower-inner quadrant of right breast of female, estrogen receptor positive (HCC) (Primary Dx); Malignant neoplasm metastatic to bone (HCC); Malignant neoplasm metastatic to both lungs (HCC) Start: 03-30-2024 End: 03-30-2024 Specialty Pharmacy Jethro Blackmon [facility] Comment on above: SPP Oral Oncology/he matology - Medication Refill (Xeloda) Start: 03-22-2024 End: 03-22-2024 ambulatory Treatment Rm 9 [facility] Work Phone: Hematology/Oncology Comment on above: Malignant neoplasm o f lower-inner quadrant of right breast of female, estrogen receptor positive (HCC) (Primary Dx); Malignant neoplasm metastatic to lung, unspecified laterality (HCC); Malignant neoplasm metastatic to bone (HCC); HER2-positive carcinoma of breast (HCC) Start: 03-21-2024 End: 03-21-2024 Patient encounter procedure Rip Rivers DO Work Phone: Hematology/Oncology Start: 03-21-2024 End: 03-21-2024 ambulatory Lab[facility] [facility] Work Phone: Hematology/Oncology Comment on above: Malignant neoplasm o f lower-inner quadrant of right breast of female, estrogen receptor positive (HCC); Malignant neoplasm metastatic to lung, unspecified laterality (HCC); Malignant neoplasm metastatic to bone (HCC); HER2-positive carcinoma of breast (HCC); Malignant neoplasm metastatic to both lungs (HCC) Malignant neoplasm o f lower-inner quadrant of right breast of female, estrogen receptor positive (HCC) (Primary Dx); Malignant neoplasm metastatic to bone (HCC); Malignant neoplasm metastatic to both lungs (HCC); Chemotherapy induced cardiomyopathy (HCC) Start: 03-09-2024 End: 03-09-2024 Specialty Pharmacy Lele Tucker [facility] Comment on above: SPP Oral Oncology/he matology - Medication Refill (capecitabine) Start: 02-28-2024 End: 02-28-2024 ambulatory Treatment 4 [facility] Work Phone: Hematology/Oncology Comment on above: Malignant neoplasm o f lower-inner quadrant of right breast of female, estrogen receptor positive (HCC) (Primary Dx); Malignant neoplasm metastatic to lung, unspecified laterality (HCC); Malignant neoplasm metastatic to bone (HCC); HER2-positive carcinoma of breast (HCC) Start: 02-27-2024 End: 02-27-2024 Patient encounter procedure Caity Cote APRN.TERRITORY DEVELOPMENT MANAGER Work Phone: Hematology/Oncology Start: 02-27-2024 End: 02-27-2024 ambulatory Lab/[facility] Work Phone: Hematology/Oncology Comment on above: Malignant neoplasm o f lower-inner quadrant of right breast of female, estrogen receptor positive (HCC) (Primary Dx); Malignant neoplasm metastatic to lung, unspecified laterality (HCC); Malignant neoplasm metastatic to bone (HCC); HER2-positive carcinoma of breast (HCC); Malignant neoplasm metastatic to both lungs (HCC) Malignant neoplasm o f lower-inner quadrant of right breast of female, estrogen receptor positive (HCC) (Primary Dx); Malignant neoplasm metastatic to lung, unspecified laterality (HCC); Malignant neoplasm metastatic to bone (HCC); HER2-positive carcinoma of breast (HCC) Start: 02-08-2024 End: 02-08-2024 ambulatory Treatment 4 [facility] Work Phone: Hematology/Oncology Comment on above: Malignant neoplasm o f lower-inner quadrant of right breast of female, estrogen receptor positive (HCC) (Primary Dx); Malignant neoplasm metastatic to lung, unspecified laterality (HCC); Malignant neoplasm metastatic to bone (HCC); HER2-positive carcinoma of breast (HCC) Start: 02-03-2024 End: 02-03-2024 Refill Ghassan Hernandez MD Work Phone: Hematology/Oncology Comment on above: Refill Request Start: 02-03-2024 End: 02-03-2024 Patient encounter procedure Caity Cote EREN.TERRITORY DEVELOPMENT MANAGER Work Phone: Hematology/Oncology Start: 02-03-2024 End: 02-03-2024 ambulatory Lab[facility] [facility] Work Phone: Hematology/Oncology Comment on above: Malignant neoplasm o f lower-inner quadrant of right breast of female, estrogen receptor positive (HCC) (Primary Dx); Malignant neoplasm metastatic to lung, unspecified laterality (HCC); Malignant neoplasm metastatic to bone (HCC); HER2-positive carcinoma of breast (HCC); Malignant neoplasm metastatic to both lungs (HCC) Malignant neoplasm o f lower-inner quadrant of right breast of female, estrogen receptor positive (HCC) (Primary Dx); Malignant neoplasm metastatic to lung, unspecified laterality (HCC); Malignant neoplasm metastatic to bone (HCC); HER2-positive carcinoma of breast (HCC); Chemotherapy induced diarrhea Start: 02-02-2024 End: 02-02-2024 Refill Ghassan Hernandez MD Work Phone: Hematology/Oncology Comment on above: Refill Request Start: 01-31-2024 End: 01-31-2024 Refill Rip Rivers DO Work Phone: Hematology/Oncology Comment on above: Refill Request SPP Oral Oncology/he matology - Medication Refill (Capecitabine) Start: 01-26-2024 End: 01-26-2024 Specialty Pharmacy Nallely Aguilera [facility] Comment on above: SPP Oral Oncology/he matology - Medication Refill (Capecitabine ) Start: 01-16-2024 End: 01-16-2024 ambulatory Treatment Rm 6 [facility] Work Phone: Hematology/Oncology Comment on above: HER2-positive carcin yolanda of breast (HCC) (Primary Dx); Malignant neoplasm of lower-inner quadrant of right breast of female, estrogen receptor positive (HCC); Malignant neoplasm metastatic to lung, unspecified laterality (HCC); Malignant neoplasm metastatic to bone (HCC); Malignant neoplasm metastatic to both lungs (HCC); Chemotherapy induced diarrhea Start: 01-12-2024 Telephone encounter Carla Almonte RN He matology/Oncology Comment on above: Appointment (Hercept in/ ) Start: 01-12-2024 ambulatory Mayco Waleska Facility:[facility] Start: 01-12-2024 End: 01-12-2024 ambulatory Rip Rivers Facility:[facility] Start: 01-11-2024 Telephone encounter Rip perez DO Work Phone: Hematology/Oncology Comment on above: Question Start: 01-09-2024 Telephone encounter Carla Almonte RN He matology/Oncology Comment on above: Health Concierge - O ther (Follow-up ) Start: 01-04-2024 End: 01-04-2024 ambulatory WILLIAMS Liseth [facility] Facility:[facility] Start: 01-04-2024 End: 01-04-2024 Subsequent hospital visit by physician [facility] ([facility]) Work Phone: Cat Scan Comment on above: Malignant neoplasm o f lower-inner quadrant of right breast of female, estrogen receptor positive (HCC) [C50.311, Z17.0] Start: 01-04-2024 Telephone encounter Rip perez DO Work Phone: Hematology/Oncology Comment on above: Results Start: 01-04-2024 End: 01-04-2024 ambulatory [facility] Facility:[facility] Start: 01-04-2024 End: 01-04-2024 Subsequent hospital visit by physician Xr [facility] Work Phone: Radiology Comment on above: Malignant neoplasm o f lower-inner quadrant of right breast of female, estrogen receptor positive (HCC) [C50.311, Z17.0] Start: 01-04-2024 End: 01-04-2024 Patient encounter procedure Rip Rivers DO Work Phone: Hematology/Oncology Start: 01-04-2024 End: 01-04-2024 ambulatory Lab/[facility] [employer] Work Phone: Hematology/Oncology Comment on above: Malignant neoplasm o f lower-inner quadrant of right breast of female, estrogen receptor positive (HCC); Malignant neoplasm metastatic to lung, unspecified laterality (HCC); Malignant neoplasm metastatic to bone (HCC); HER2-positive carcinoma of breast (HCC); Malignant neoplasm metastatic to both lungs (HCC) Malignant neoplasm o f lower-inner quadrant of right breast of female, estrogen receptor positive (HCC) (Primary Dx); Orthopnea; Interstitial pulmonary disease (HCC) Start: 12-30-2023 Specialty Pharmacy Nallely Lockwood [facility] Comment on above: SPP Oral Oncology/he matology - Medication Refill (Capecitabine 500mg) Start: 12-22-2023 End: 12-22-2023 ambulatory Treatment Rm 9 [facility] Work Phone: Hematology/Oncology Comment on above: Malignant neoplasm m etastatic to bone (HCC) (Primary Dx) Start: 12-22-2023 End: 12-22-2023 Subsequent hospital visit by physician Ct [facility] Cat Scan Comment on above: Malignant neoplasm o f lower-inner quadrant of right breast of female, estrogen receptor positive (HCC) [C50.311, Z17.0] Start: 12-21-2023 Telephone encounter Rip perez DO Work Phone: Hematology/Oncology Comment on above: Results Start: 12-19-2023 ambulatory Mayco Galeano Facility:[facility] Start: 12-19-2023 End: 12-19-2023 ambulatory Rip Rivers Facility:[facility] Start: 12-15-2023 End: 12-15-2023 ambulatory Treatment Rm 1 [facility] Work Phone: Hematology/Oncology Comment on above: Malignant neoplasm o f lower-inner quadrant of right breast of female, estrogen receptor positive (HCC) (Primary Dx); Malignant neoplasm metastatic to lung, unspecified laterality (HCC); Malignant neoplasm metastatic to bone (HCC); HER2-positive carcinoma of breast (HCC); Chemotherapy-induced cardiomyopathy (HCC); Chemotherapy-induced neuropathy (HCC) Start: 12-14-2023 Telephone encounter Caity bhandari APRN.CNP Work Phone: Hematology/Oncology Start: 12-14-2023 End: 12-14-2023 Patient encounter procedure Caity Cote TERRITORY DEVELOPMENT MANAGER Work Phone: Hematology/Oncology Start: 12-14-2023 End: 12-14-2023 ambulatory Lab[facility] Work Phone: Hematology/Oncology Comment on above: Malignant neoplasm o f lower-inner quadrant of right breast of female, estrogen receptor positive (HCC); Malignant neoplasm metastatic to lung, unspecified laterality (HCC); Malignant neoplasm metastatic to bone (HCC); HER2-positive carcinoma of breast (HCC); Chemotherapy-induced cardiomyopathy (HCC); Chemotherapy-induced neuropathy (HCC) Malignant neoplasm o f lower-inner quadrant of right breast of female, estrogen receptor positive (HCC) (Primary Dx); Malignant neoplasm metastatic to lung, unspecified laterality (HCC); Malignant neoplasm metastatic to bone (HCC); HER2-positive carcinoma of breast (HCC); Chemotherapy-induced cardiomyopathy (HCC); Chemotherapy-induced neuropathy (HCC) Start: 12-07-2023 Specialty Pharmacy Nallely Lockwood [facility] Comment on above: SPP Oral Oncology/he matology - Medication Refill (Capecitabine 500mg) Start: 11-24-2023 End: 11-24-2023 ambulatory Treatment Rm 6 [facility] Work Phone: Hematology/Oncology Comment on above: Malignant neoplasm m etastatic to bone (HCC) (Primary Dx); Malignant neoplasm of lower-inner quadrant of right breast of female, estrogen receptor positive (HCC); Malignant neoplasm metastatic to lung, unspecified laterality (HCC); HER2-positive carcinoma of breast (HCC) Start: 11-23-2023 End: 11-23-2023 Patient encounter procedure Rip Rivers DO Work Phone: Hematology/Oncology Start: 11-23-2023 End: 11-23-2023 ambulatory Lab/[place] [facility] Work Phone: Hematology/Oncology Comment on above: Malignant neoplasm o f prostate (HCC) (Primary Dx); Malignant neoplasm of lower-inner quadrant of right breast of female, estrogen receptor positive (HCC); Malignant neoplasm metastatic to lung, unspecified laterality (HCC); Malignant neoplasm metastatic to bone (HCC); HER2-positive carcinoma of breast (HCC) Malignant neoplasm o f lower-inner quadrant of right breast of female, estrogen receptor positive (HCC) (Primary Dx); Malignant neoplasm metastatic to lung, unspecified laterality (HCC); Malignant neoplasm metastatic to bone (HCC); Chemotherapy-induced cardiomyopathy (HCC); Chemotherapy-induced neuropathy (HCC); Chemotherapy induced diarrhea; Encounter for monitoring cardiotoxic drug therapy Start: 11-15-2023 Telephone encounter Rip perez DO Work Phone: Hematology/Oncology Comment on above: Medication Question Start: 11-11-2023 Telephone encounter Carla Almonte RN He matology/Oncology Comment on above: Health Concierge - O ther (Oral Anti-Cancer Agents Follow-up ) Start: 11-11-2023 End: 11-11-2023 ambulatory Lab/[place] [facility] Work Phone: Hematology/Oncology Comment on above: Malignant neoplasm o f lower-inner quadrant of right breast of female, estrogen receptor positive (HCC); Malignant neoplasm metastatic to lung, unspecified laterality (HCC); Malignant neoplasm metastatic to bone (HCC); HER2-positive carcinoma of breast (HCC) Start: 11-09-2023 Refill Rip Gallardo Work Phone: Hematology/Oncology Comment on above: Refill Request Start: 11-03-2023 End: 11-03-2023 ambulatory Treatment Rm 1 [facility] Work Phone: Hematology/Oncology Comment on above: Malignant neoplasm o f lower-inner quadrant of right breast of female, estrogen receptor positive (HCC) (Primary Dx); Malignant neoplasm metastatic to lung, unspecified laterality (HCC); Malignant neoplasm metastatic to bone (HCC); HER2-positive carcinoma of breast (HCC) Start: 11-02-2023 End: 11-02-2023 Patient encounter procedure Caity Cote APRN.TERRITORY DEVELOPMENT MANAGER Work Phone: Hematology/Oncology Start: 11-02-2023 End: 11-02-2023 ambulatory Lab/[facility] Work Phone: Hematology/Oncology Comment on above: Malignant neoplasm o f lower-inner quadrant of right breast of female, estrogen receptor positive (HCC) (Primary Dx); Malignant neoplasm metastatic to bone (HCC); Malignant neoplasm metastatic to lung, unspecified laterality (HCC); Chemotherapy-induced cardiomyopathy (HCC) Malignant neoplasm o f lower-inner quadrant of right breast of female, estrogen receptor positive (HCC) (Primary Dx); Malignant neoplasm metastatic to bone (HCC); Chemotherapy-induced cardiomyopathy (HCC); HER2-positive carcinoma of breast (HCC) Start: 11-01-2023 Refill Rip Gallardo Work Phone: Hematology/Oncology Comment on above: Refill Request Start: 11-01-2023 Specialty Pharmacy Nallely Lockwood [facility] Comment on above: SPP Oral Oncology/he matology - Medication Refill (Capecitabine 500mg) Start: 10-28-2023 End: 10-28-2023 Follow-up encounter Meenu Garay MD Work Phone: Radiation Oncology Comment on above: Radiotherapy follow- up (Primary Dx); Secondary malignant neoplasm of right lung (HCC) Start: 10-28-2023 End: 10-28-2023 Telemedicine consultation with patient Meenu Garay MD Work Phone: Radiation Oncology Start: 10-14-2023 Telephone encounter Rip perez DO Work Phone: Hematology/Oncology Comment on above: Question Start: 10-13-2023 End: 10-13-2023 ambulatory Treatment Rm 1 [facility] Work Phone: Hematology/Oncology Comment on above: Malignant neoplasm o f lower-inner quadrant of right breast of female, estrogen receptor positive (HCC) (Primary Dx); Malignant neoplasm metastatic to lung, unspecified laterality (HCC); Malignant neoplasm metastatic to bone (HCC); HER2-positive carcinoma of breast (HCC) Start: 10-11-2023 End: 10-11-2023 Patient encounter procedure Rip Rivers DO Work Phone: Hematology/Oncology Start: 10-11-2023 End: 10-11-2023 ambulatory Lab[facility] Work Phone: Hematology/Oncology Comment on above: Malignant neoplasm o f lower-inner quadrant of right breast of female, estrogen receptor positive (HCC); Malignant neoplasm metastatic to bone (HCC); Malignant neoplasm metastatic to lung, unspecified laterality (HCC); Chemotherapy-induced cardiomyopathy (HCC) Malignant neoplasm o f lower-inner quadrant of right breast of female, estrogen receptor positive (HCC) (Primary Dx); HER2-positive carcinoma of breast (HCC); Malignant neoplasm metastatic to right lung (HCC); Chemotherapy-induced cardiomyopathy (HCC); 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) Start: 09-30-2023 ambulatory Meenu Garay MD Work Phone: Radiation Oncology Comment on above: Patient Education (D ischarge instructions-completed radiation) Start: 09-30-2023 Patient encounter procedure Meenu Garay MD Work Phone: Radiation Oncology Start: 09-30-2023 Radiation Oncology Note Vaughn Garay MD Work Phone: Radiation Oncology Comment on above: Completion Note Start: 2023 End: 2023 Patient encounter procedure Meenu Garay MD Work Phone: Radiation Oncology Comment on above: Secondary malignant neoplasm of right lung (HCC) (Primary Dx) Start: 2023 Refill Caity silverio APRN.CNP Work Phone: Hematology/Oncology Comment on above: Refill Request Start: 09-22-2023 End: 09-22-2023 ambulatory Treatment Rm 6 [facility] Work Phone: Hematology/Oncology Comment on above: HER2-positive carcin yolanda of breast (HCC) (Primary Dx); Malignant neoplasm metastatic to bone (HCC); Malignant neoplasm metastatic to lung, unspecified laterality (HCC); Malignant neoplasm of lower-inner quadrant of right breast of female, estrogen receptor positive (HCC); Chemotherapy induced diarrhea Start: 09-21-2023 End: 09-21-2023 Office outpatient visit 25 minutes Rip Rivers DO Work Phone: Hematology/Oncology Comment on above: Encounter for monito ring cardiotoxic drug therapy (Primary Dx); Malignant neoplasm of lower-inner quadrant of right breast of female, estrogen receptor positive (HCC); Malignant neoplasm metastatic to right lung (HCC); Malignant neoplasm metastatic to bone (HCC); HER2-positive carcinoma of breast (HCC); Chemotherapy-induced cardiomyopathy (HCC); Chemotherapy-induced neuropathy (HCC); Multiple thyroid nodules Start: 09-21-2023 End: 09-21-2023 ambulatory Lab/[facility] Work Phone: Hematology/Oncology Comment on above: Malignant neoplasm o f lower-inner quadrant of right breast of female, estrogen receptor positive (HCC); Malignant neoplasm metastatic to bone (HCC); Malignant neoplasm metastatic to lung, unspecified laterality (HCC); Chemotherapy-induced cardiomyopathy (HCC) Start: 09-16-2023 Telephone encounter Carla Almonte RN He matology/Oncology Comment on above: Health Concierge - O ther (Oral Follow-up ) Start: 09-15-2023 End: 09-15-2023 Subsequent hospital visit by physician [facility] Work Phone: Radiology Comment on above: RUQ pain [R10.11] Start: 09-13-2023 Patient encounter procedure Meenu Garay MD Work Phone: [facility] Start: 09-13-2023 Radiation Oncology Note Vaughn Garay MD Work Phone: Radiation Oncology Comment on above: Simulation Note Treatment Planning Start: 09-13-2023 End: 09-13-2023 Nursing evaluation of patient and report Nurse Tg [facility] Work Phone: Radiation Oncology Comment on above: Secondary malignant neoplasm of right lung (HCC) (Primary Dx) Start: 09-12-2023 Orders Only Meenu Garay MD Work Phone: Radiation Oncology Comment on above: Secondary malignant neoplasm of right lung (HCC) (Primary Dx) Start: 09-05-2023 Telephone encounter Chanelle wang RN Work Phone: Hematology/Oncology Comment on above: Care Coordination (C YCLE 1/DAY 1 POST TREATMENT CALL ) Start: 08-30-2023 End: 08-30-2023 ambulatory Lab/[facility] Work Phone: Hematology/Oncology Comment on above: Malignant neoplasm m etastatic to bone (HCC) (Primary Dx); Malignant neoplasm of lower-inner quadrant of right breast of female, estrogen receptor positive (HCC); Malignant neoplasm metastatic to lung, unspecified laterality (HCC); Chemotherapy-induced cardiomyopathy (HCC) Start: 08-30-2023 Patient encounter procedure Nallely Aguilera [facility] Comment on above: SPP Oral Oncology/he matology - Treatment Referral (Capecitabine 500mg / Tukysa 50mg / Tukysa 150mg); Insurance Authorization (No PA Required) Start: 08-30-2023 Telephone encounter Rip perez DO Work Phone: Hematology/Oncology Comment on above: AVS 08/29/23 Start: 08-30-2023 End: 08-30-2023 Office outpatient visit 40 minutes Rip Rivers DO Work Phone: Hematology/Oncology Comment on above: Malignant neoplasm o f lower-inner quadrant of right breast of female, estrogen receptor positive (HCC) (Primary Dx); Malignant neoplasm metastatic to both lungs (HCC); HER2-positive carcinoma of breast (HCC); RUQ pain; Chemotherapy-induced cardiomyopathy (HCC); Chemotherapy-induced neuropathy (HCC) Start: 08-26-2023 End: 08-26-2023 Patient encounter procedure Meenu Garay MD Work Phone: Radiation Oncology Comment on above: Secondary malignant neoplasm of right lung (HCC) (Primary Dx) Start: 08-25-2023 Telephone encounter Rip perez DO Work Phone: Hematology/Oncology Comment on above: Appointment Start: 08-22-2023 ambulatory RIP RIVERS Facility:[facility] Start: 08-22-2023 End: 08-22-2023 Subsequent hospital visit by physician Injection [facility] Comment on above: Malignant neoplasm o f lower-inner quadrant of right breast of female, estrogen receptor positive (HCC) [C50.311, Z17.0] Start: 08-16-2023 End: 08-17-2023 Emergency department patient visit Dr. Williams Farrell Work Phone: [facility]Emergency Department Work Phone: Start: 08-11-2023 End: 08-11-2023 ambulatory Treatment Rm 10 [facility] Work Phone: Hematology/Oncology Comment on above: Malignant neoplasm m etastatic to bone (HCC) (Primary Dx); Malignant neoplasm metastatic to lung, unspecified laterality (HCC); Malignant neoplasm of lower-inner quadrant of right breast of female, estrogen receptor positive (HCC) Start: 08-10-2023 End: 08-10-2023 Follow-up encounter Meenu Garay MD Work Phone: Radiation Oncology Comment on above: Radiotherapy follow- up (Primary Dx); Malignant neoplasm metastatic to left lung (HCC) Start: 08-10-2023 End: 08-10-2023 Telemedicine consultation with patient Meenu Garay MD Work Phone: [facility] Start: 08-10-2023 End: 08-10-2023 Office outpatient visit 25 minutes Rip Rivers DO Work Phone: Hematology/Oncology Comment on above: Malignant neoplasm o f lower-inner quadrant of right breast of female, estrogen receptor positive (HCC) (Primary Dx); Malignant neoplasm metastatic to bone (HCC); Malignant neoplasm metastatic to lung, unspecified laterality (HCC); Malignant neoplasm metastatic to both lungs (HCC) Start: 08-10-2023 End: 08-10-2023 ambulatory Lab/Port [facility] Work Phone: Hematology/Oncology Comment on above: Malignant neoplasm o f lower-inner quadrant of right breast of female, estrogen receptor positive (HCC); Malignant neoplasm metastatic to bone (HCC); Malignant neoplasm metastatic to lung, unspecified laterality (HCC); Chemotherapy-induced cardiomyopathy (HCC) Start: 08-03-2023 Refill Rip Gallardo Work Phone: Hematology/Oncology Comment on above: Refill Request Start: 08-03-2023 End: 08-03-2023 Subsequent hospital visit by physician [facility] ([facility]) Work Phone: Cat Scan Comment on above: Malignant neoplasm m etastatic to left lung (HCC) [C78.02] Start: 07-21-2023 End: 07-21-2023 ambulatory Treatment Rm 4 [facility] Work Phone: Hematology/Oncology Comment on above: Malignant neoplasm m etastatic to bone (HCC) (Primary Dx); Malignant neoplasm metastatic to lung, unspecified laterality (HCC); Malignant neoplasm of lower-inner quadrant of right breast of female, estrogen receptor positive (HCC) (HCC) Start: 07-20-2023 End: 07-20-2023 Patient encounter procedure Caity Cote EVARISTO Work Phone: [facility] [place] Start: 07-20-2023 End: 07-20-2023 ambulatory Lab/Port [facility] Work Phone: Hematology/Oncology Comment on above: Malignant neoplasm o f lower-inner quadrant of right breast of female, estrogen receptor positive (HCC) (HCC); Malignant neoplasm metastatic to bone (HCC); Malignant neoplasm metastatic to lung, unspecified laterality (HCC); Chemotherapy-induced cardiomyopathy (HCC) (HCC) Malignant neoplasm o f lower-inner quadrant of right breast of female, estrogen receptor positive (HCC) (HCC) (Primary Dx); Malignant neoplasm metastatic to both lungs (HCC); Malignant neoplasm metastatic to bone (HCC) Start: 06-16-2023 End: 06-16-2023 Office outpatient new 45 minutes Williams Farrell DO Work Phone: [facility] Comment on above: Malignant neoplasm m etastatic to both lungs (CMS/HCC) (Primary Dx); Malignant neoplasm metastatic to bone (CMS/HCC); Chemotherapy-induced neuropathy (CMS/HCC); Chemotherapy-induced cardiomyopathy (CMS/HCC); Platelets decreased (CMS/HCC); Primary hypertension; Heart disease Start: 05-27-2023 End: 05-27-[address] Mitch Mejia Work Phone: [facility] Work Phone: Start: 05-25-2023 Non-patient / Non-visit Dr. Montanez Work Phone: [facility] Start: 05-25-2023 End: 05-25-[address] Mitch Mejia Work Phone: [facility] Work Phone: Start: 05-25-2023 End: 05-25-[address] Mitch Mejia Work Phone: [facility]Cardiovascul [facility] Services Work Phone: Start: 04-27-2023 End: 04-27-2023 ambulatory Treatment Rm 4 [facility] Work Phone: Hematology/Oncology Comment on above: Malignant neoplasm m etastatic to bone (HCC) (Primary Dx); Malignant neoplasm metastatic to lung, unspecified laterality (HCC); Malignant neoplasm of lower-inner quadrant of right breast of female, estrogen receptor positive (HCC) Start: 04-26-2023 End: 04-26-2023 Patient encounter procedure Rip Rivers DO Work Phone: [facility] Start: 04-26-2023 End: 04-26-2023 ambulatory Lab/Port [facility] Work Phone: Hematology/Oncology Comment on above: Malignant neoplasm m etastatic to bone (HCC) (Primary Dx); Malignant neoplasm of lower-inner quadrant of right breast of female, estrogen receptor positive (HCC) ; Malignant neoplasm metastatic to lung, unspecified laterality (HCC); Chemotherapy-induced cardiomyopathy (HCC) Malignant neoplasm o f lower-inner quadrant of right breast of female, estrogen receptor positive (HCC) (Primary Dx); Malignant neoplasm metastatic to both lungs (HCC); Encounter for monitoring cardiotoxic drug therapy; Malignant neoplasm metastatic to bone (HCC); Chemotherapy-induced cardiomyopathy (HCC) Start: 04-25-2023 Telephone encounter Rip perez DO Work Phone: Hematology/Oncology Comment on above: Refill Request Start: 04-06-2023 End: 04-06-2023 ambulatory Caity Cote APRN.TERRITORY DEVELOPMENT MANAGER Work Phone: Hematology/Oncology Comment on above: Malignant neoplasm o f lower-inner quadrant of right breast of female, estrogen receptor positive (HCC) (Primary Dx); Malignant neoplasm metastatic to bone (HCC); Malignant neoplasm metastatic to lung, unspecified laterality (HCC) Start: 04-06-2023 End: 04-06-2023 Patient encounter procedure Caity Cote APRN.TERRITORY DEVELOPMENT MANAGER Work Phone: [facility] Start: 03-30-2023 End: 03-30-2023 ambulatory Meenu Garay MD Work Phone: Radiation Oncology Comment on above: Malignant neoplasm m etastatic to left lung (HCC) (Primary Dx) Start: 03-30-2023 End: 03-30-2023 Telemedicine consultation with patient Meenu Garay MD, MD Work Phone: [facility] Start: 03-30-2023 Telephone encounter Meenu Heredia MD Work Phone: Radiation Oncology Comment on above: Future Appointment Start: 03-24-2023 Telephone encounter Rip perez DO Work Phone: Hematology/Oncology Comment on above: Results Start: 03-23-2023 End: 03-23-2023 Subsequent hospital visit by physician [facility] Work Phone: Radiology Comment on above: Multiple thyroid nod ules [E04.2] Start: 03-17-2023 End: 03-17-2023 ambulatory Treatment Rm 8 [facility] Work Phone: Hematology/Oncology Comment on above: Malignant neoplasm m etastatic to bone (HCC) (Primary Dx); Malignant neoplasm metastatic to lung, unspecified laterality (HCC); Malignant neoplasm of lower-inner quadrant of right breast of female, estrogen receptor positive (HCC) Start: 03-16-2023 End: 03-16-2023 [facility] Work Phone: Hematology/Oncology Comment on above: Malignant neoplasm m etastatic to bone (HCC) (Primary Dx); Malignant neoplasm of lower-inner quadrant of right breast of female, estrogen receptor positive (HCC) ; Malignant neoplasm metastatic to lung, unspecified laterality (HCC); Chemotherapy-induced cardiomyopathy (HCC) Start: 03-11-2023 End: 03-11-2023 Subsequent hospital visit by physician [facility] ([facility]) Work Phone: Cat Scan Comment on above: Malignant neoplasm m etastatic to bone (HCC) [C79.51] Start: 02-23-2023 End: 02-23-2023 Patient encounter procedure Rip Rivers DO Work Phone: [facility] Comment on above: Malignant neoplasm m etastatic to left lung (HCC) (Primary Dx) Start: 02-23-2023 End: 02-23-2023 ambulatory Rip Rivers DO Work Phone: Hematology/Oncology Comment on above: Malignant neoplasm m etastatic to bone (HCC) (Primary Dx) Malignant neoplasm o f lower-inner quadrant of right breast of female, estrogen receptor positive (HCC); Malignant neoplasm metastatic to bone (HCC); Malignant neoplasm metastatic to lung, unspecified laterality (HCC); Chemotherapy-induced cardiomyopathy (HCC) Start: 02-17-2023 Non-patient / Non-visit Dr. Montanez Work Phone: [facility] Work Phone: Start: 02-16-2023 End: 02-17-2023 Evaluation and management of inpatient Dr. Mitch Mejia Work Phone: [facility]-Progressive Care Unit Work Phone: Start: 02-16-2023 End: 02-17-[address] Mitch Mejia Work Phone: [facility] Work Phone: Start: 02-16-2023 Telephone encounter Meenu Heredia MD Work Phone: Radiation Oncology Comment on above: symptoms Start: 02-09-2023 Patient encounter procedure Meenu Garay MD, MD Work Phone: [facility] Start: 02-09-2023 Radiation Oncology Note Vaughn Garay MD Work Phone: Radiation Oncology Comment on above: Treatment Planning Simulation Note Start: 02-09-2023 End: 02-09-2023 Nursing evaluation of patient and report Nurse Tg [facility] Work Phone: Radiation Oncology Comment on above: Malignant neoplasm m etastatic to left lung (HCC) (Primary Dx) Start: 02-08-2023 Orders Only Meenu Garay MD Work Phone: Radiation Oncology Comment on above: Malignant neoplasm m etastatic to left lung (HCC) (Primary Dx) Start: 02-03-2023 End: 02-03-2023 Patient encounter procedure Meenu Garay MD Work Phone: Radiation Oncology Comment on above: Malignant neoplasm m etastatic to left lung (HCC) (Primary Dx) Start: 02-02-2023 End: 02-02-2023 ambulatory Lab/Port [facility] Work Phone: Hematology/Oncology Comment on above: Malignant neoplasm o f lower-inner quadrant of right breast of female, estrogen receptor positive (HCC); Malignant neoplasm metastatic to bone (HCC); Malignant neoplasm metastatic to lung, unspecified laterality (HCC); Chemotherapy-induced cardiomyopathy (HCC) Start: 01-28-2023 Non-patient / Non-visit Dr. Montanez Work Phone: [facility] Start: 01-28-2023 End: 01-28-[address] Mitch Mejia Work Phone: [facility] Work Phone: Start: 01-28-2023 End: 01-28-[address] Mitch Mejia Work Phone: [facility]-Cardiovascul [facility] Services Work Phone: Start: 01-26-2023 End: 01-26-2023 Subsequent hospital visit by physician [facility] ([facility]) Work Phone: Cat Scan Comment on above: Malignant neoplasm o f lower-inner quadrant of right breast of female, estrogen receptor positive (HCC) [C50.311, Z17.0] Start: 01-13-2023 End: 01-13-2023 ambulatory Treatment Rm 4 [facility] Work Phone: Hematology/Oncology Comment on above: Malignant neoplasm m etastatic to bone (HCC) (Primary Dx); Malignant neoplasm metastatic to lung, unspecified laterality (HCC); Malignant neoplasm of lower-inner quadrant of right breast of female, estrogen receptor positive (HCC); Chemotherapy induced diarrhea Start: 01-12-2023 End: 01-12-2023 Patient encounter procedure Rip Rivers DO Work Phone: [facility] [employer] Start: 01-12-2023 End: 01-12-2023 ambulatory Lab/Port [facility] Work Phone: Hematology/Oncology Comment on above: Malignant neoplasm o f lower-inner quadrant of right breast of female, estrogen receptor positive (HCC); Malignant neoplasm metastatic to bone (HCC); Malignant neoplasm metastatic to lung, unspecified laterality (HCC); Chemotherapy-induced cardiomyopathy (HCC) Malignant neoplasm o f lower-inner quadrant of right breast of female, estrogen receptor positive (HCC) (Primary Dx); 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); Malignant neoplasm metastatic to bone (HCC); Malignant neoplasm metastatic to both lungs (HCC); Platelets decreased (HCC); Chemotherapy-induced cardiomyopathy (HCC); Chemotherapy-induced neuropathy (HCC) Start: 12-30-2022 Telephone encounter Ranjana Burgos RN Hematology/Oncology Comment on above: Research Start: 12-22-2022 End: 12-22-2022 ambulatory Rip Rivers DO Work Phone: Hematology/Oncology Comment on above: Malignant neoplasm o f lower-inner quadrant of right breast of female, estrogen receptor positive (HCC) (Primary Dx); 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); Malignant neoplasm metastatic to both lungs (HCC); Encounter for monitoring cardiotoxic drug therapy; Platelets decreased (HCC) Start: 12-22-2022 End: 12-22-2022 Patient encounter procedure Rip Rivers DO Work Phone: [facility] [employer] Start: 12-02-2022 End: 12-02-2022 ambulatory Treatment Rm 10 [facility] Work Phone: Hematology/Oncology Comment on above: Malignant neoplasm m etastatic to bone (HCC) (Primary Dx); Malignant neoplasm metastatic to lung, unspecified laterality (HCC); Malignant neoplasm of lower-inner quadrant of right breast of female, estrogen receptor positive (HCC) Start: 12-01-2022 End: 12-01-2022 Patient encounter procedure Rip Rivers DO Work Phone: [facility] [employer] Start: 12-01-2022 End: 12-01-2022 ambulatory Lab/Port [facility] Work Phone: Hematology/Oncology Comment on above: Malignant neoplasm o f lower-inner quadrant of right breast of female, estrogen receptor positive (HCC); Malignant neoplasm metastatic to bone (HCC); Malignant neoplasm metastatic to lung, unspecified laterality (HCC); Chemotherapy-induced cardiomyopathy (HCC) Malignant neoplasm o f lower-inner quadrant of right breast of female, estrogen receptor positive (HCC) (Primary Dx); 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); Malignant neoplasm metastatic to bone (HCC); Malignant neoplasm metastatic to both lungs (HCC) Start: 11-26-2022 End: 11-26-[address] Mitch Mejia Work Phone: [facility] Work Phone: Start: 11-11-2022 Chart abstracting Ranjana Burgos RN Hematology/Oncology Comment on above: Research (Consent CA REVIVE) Start: 11-11-2022 End: 11-11-2022 ambulatory Treatment Rm 5 [facility] Work Phone: Hematology/Oncology Comment on above: Malignant neoplasm m etastatic to bone (HCC) (Primary Dx); Malignant neoplasm metastatic to lung, unspecified laterality (HCC); Malignant neoplasm of lower-inner quadrant of right breast of female, estrogen receptor positive (HCC) Start: 11-10-2022 End: 11-10-2022 Subsequent hospital visit by physician [facility]r [facility] Work Phone: Radiology Comment on above: Chronic left sacroil iac pain [M53.3, G89.29] Start: 11-10-2022 End: 11-10-2022 Patient encounter procedure Rip Rivers DO Work Phone: [facility] [employer] Start: 11-10-2022 End: 11-10-2022 ambulatory Lab/Port [facility] Work Phone: Hematology/Oncology Comment on above: Malignant neoplasm o f lower-inner quadrant of right breast of female, estrogen receptor positive (HCC); Malignant neoplasm metastatic to bone (HCC); Malignant neoplasm metastatic to lung, unspecified laterality (HCC); Chemotherapy-induced cardiomyopathy (HCC) Malignant neoplasm o f lower-inner quadrant of right breast of female, estrogen receptor positive (HCC) (Primary Dx); 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); Malignant neoplasm metastatic to bone (HCC); Malignant neoplasm metastatic to both lungs (HCC); Chronic left sacroiliac pain; Chemotherapy-induced cardiomyopathy (HCC) Start: 11-09-2022 Telephone encounter Rip perez DO Work Phone: Hematology/Oncology Comment on above: echo results Malignant neoplasm o f lower-inner quadrant of right breast of female, estrogen receptor positive (HCC) (Primary Dx); Malignant neoplasm metastatic to bone (HCC); Malignant neoplasm metastatic to lung, unspecified laterality (HCC); Chemotherapy-induced cardiomyopathy (HCC) Start: 11-03-2022 Non-patient / Non-visit Dr. Montanez Work Phone: [facility] Start: 11-03-2022 End: 11-03-[address] Mitch Mejia Work Phone: [facility] Work Phone: Start: 10-20-2022 End: 10-20-2022 ambulatory Rip Rivers DO Work Phone: Hematology/Oncology Comment on above: Malignant neoplasm o f lower-inner quadrant of right breast of female, estrogen receptor positive (HCC) (Primary Dx); Malignant neoplasm metastatic to bone (HCC); Malignant neoplasm metastatic to both lungs (HCC); Chemotherapy-induced cardiomyopathy (HCC) Start: 10-20-2022 End: 10-20-2022 Patient encounter procedure [facility]ip Rivers DO [facility] Start: 10-18-2022 End: 10-18-2022 ambulatory Lab/Port [facility] Work Phone: Hematology/Oncology Comment on above: Malignant neoplasm m etastatic to lung, unspecified laterality (HCC); Malignant neoplasm metastatic to bone (HCC); Malignant neoplasm of lower-inner quadrant of right breast of female, estrogen receptor positive (HCC) Start: 10-18-2022 End: 10-18-2022 Subsequent hospital visit by physician [facility] ([facility]) Work Phone: Cat Scan Comment on above: Malignant neoplasm o f lower-inner quadrant of right breast of female, estrogen receptor positive (HCC) [C50.311, Z17.0] Start: 09-30-2022 End: 09-30-2022 ambulatory Treatment Rm 9 [facility] Work Phone: Hematology/Oncology Comment on above: Malignant neoplasm m etastatic to lung, unspecified laterality (HCC) (Primary Dx); Malignant neoplasm metastatic to bone (HCC); Malignant neoplasm of lower-inner quadrant of right breast of female, estrogen receptor positive (HCC) Start: 09-29-2022 Refill Rip Gallardo Work Phone: Hematology/Oncology Comment on above: Refill Request Start: 09-22-2022 End: 09-22-2022 Subsequent hospital visit by physician Diagnostic Mammo [facility] Mammogram Start: 09-09-2022 End: 09-09-2022 ambulatory Treatment Rm 13 [facility] Work Phone: Hematology/Oncology Comment on above: Malignant neoplasm m etastatic to bone (HCC) (Primary Dx); Malignant neoplasm metastatic to lung, unspecified laterality (HCC); Malignant neoplasm of lower-inner quadrant of right breast of female, estrogen receptor positive (HCC) Start: 09-08-2022 End: 09-08-2022 Patient encounter procedure Rip Rivers DO Work Phone: [facility] [place] Start: 09-08-2022 End: 09-08-2022 ambulatory Lab/Port [facility] Work Phone: Hematology/Oncology Comment on above: Malignant neoplasm m etastatic to lung, unspecified laterality (HCC); Malignant neoplasm metastatic to bone (HCC); Malignant neoplasm of lower-inner quadrant of right breast of female, estrogen receptor positive (HCC) Malignant neoplasm o f lower-inner quadrant of right breast of female, estrogen receptor positive (HCC) (Primary Dx); Malignant neoplasm metastatic to bone (HCC); Malignant neoplasm metastatic to both lungs (HCC); 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); Chemotherapy-induced neuropathy (HCC) Start: 08-24-2022 Documentation procedure Mammog damaris Coordinator [facility] Start: 08-24-2022 Letter encounter Mammography Coordinator [facility] Department Start: 08-24-2022 Telephone encounter Rip perez DO Work Phone: Hematology/Oncology Comment on above: Results (Screening m ammogram) Start: 08-23-2022 End: 08-23-2022 Subsequent hospital visit by physician Screen Mammo [facility] Mammogram Comment on above: Encounter for screen ing mammogram for malignant neoplasm of breast [Z12.31] Start: 08-18-2022 End: 08-18-2022 ambulatory Rip Rivers DO Work Phone: Hematology/Oncology Comment on above: Malignant neoplasm o f lower-inner quadrant of right breast of female, estrogen receptor positive (HCC) (Primary Dx); Bone metastases (HCC); Malignant neoplasm metastatic to both lungs (HCC); Chemotherapy-induced neuropathy (HCC); Chemotherapy-induced cardiomyopathy (HCC) Start: 08-18-2022 End: 08-18-2022 Patient encounter procedure Rip Rivers DO Work Phone: [facility] [place] Start: 07-29-2022 Telephone encounter Rip perez DO Work Phone: Hematology/Oncology Comment on above: Results (CTs) Start: 07-29-2022 End: 07-29-2022 ambulatory Treatment Rm 13 [facility] Work Phone: Hematology/Oncology Comment on above: Bone metastases (HCC ) (Primary Dx); Malignant neoplasm metastatic to lung, unspecified laterality (HCC); Malignant neoplasm of lower-inner quadrant of right breast of female, estrogen receptor positive (HCC); Chemotherapy induced diarrhea Malignant neoplasm o f lower-inner quadrant of right breast of female, estrogen receptor positive (HCC) (Primary Dx); Bone metastases (HCC); Malignant neoplasm metastatic to both lungs (HCC); Chemotherapy-induced neuropathy (HCC) Start: 07-29-2022 End: 07-29-2022 Patient encounter procedure Caity Cote APRN.TERRITORY DEVELOPMENT MANAGER Work Phone: [facility] Start: 07-27-2022 End: 07-27-2022 Subsequent hospital visit by physician Ct Prep [facility] Cat Scan Comment on above: Malignant neoplasm o f lower-inner quadrant of right breast of female, estrogen receptor positive (HCC) [C50.311, Z17.0] Start: 07-08-2022 End: 07-08-2022 ambulatory Treatment Rm 13 [facility] Work Phone: Hematology/Oncology Comment on above: Bone metastases (HCC ) (Primary Dx); Malignant neoplasm metastatic to lung, unspecified laterality (HCC); Malignant neoplasm of lower-inner quadrant of right breast of female, estrogen receptor positive (HCC) Start: 07-06-2022 End: 07-06-2022 Patient encounter procedure Rip Rivers DO Work Phone: [facility] Start: 07-06-2022 End: 07-06-2022 ambulatory Lab/Port [facility] Work Phone: Hematology/Oncology Comment on above: Skin, metastatic can cer to (HCC) (Primary Dx); Malignant neoplasm metastatic to lung, unspecified laterality (HCC); Bone metastases (HCC); Malignant neoplasm of lower-inner quadrant of right breast of female, estrogen receptor positive (HCC) Malignant neoplasm o f lower-inner quadrant of right breast of female, estrogen receptor positive (HCC) (Primary Dx); Bone metastases (HCC); Malignant neoplasm metastatic to both lungs (HCC); Encounter for screening mammogram for malignant neoplasm of breast; Chemotherapy-induced neuropathy (HCC); Chemotherapy-induced cardiomyopathy (HCC) Start: 06-25-2022 Non-patient / Non-visit Dr. Montanez Work Phone: [facility] Start: 06-25-2022 End: 06-25-[address] Mitch Mejia Work Phone: [facility] Work Phone: Start: 06-25-2022 End: 06-25-[address] Mitch Mejia Work Phone: [facility] Start: 06-17-2022 End: 06-17-2022 ambulatory Treatment Rm 5 [facility] Work Phone: Hematology/Oncology Comment on above: Skin, metastatic can cer to (HCC) (Primary Dx); Bone metastases (HCC); Malignant neoplasm metastatic to lung, unspecified laterality (HCC); Malignant neoplasm of lower-inner quadrant of right breast of female, estrogen receptor positive (HCC) Start: 06-15-2022 End: 06-15-2022 Patient encounter procedure Caity Cote APRN.TERRITORY DEVELOPMENT MANAGER Work Phone: [facility] [place] Start: 06-15-2022 End: 06-15-2022 ambulatory Lab/Port [facility] Work Phone: Hematology/Oncology Comment on above: Malignant neoplasm m etastatic to lung, unspecified laterality (HCC); Bone metastases (HCC); Malignant neoplasm of lower-inner quadrant of right breast of female, estrogen receptor positive (HCC) Malignant neoplasm o f lower-inner quadrant of right breast of female, estrogen receptor positive (HCC) (Primary Dx); Bone metastases (HCC); Skin, 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); Malignant neoplasm metastatic to both lungs (HCC); Encounter for monitoring cardiotoxic drug therapy Start: 06-02-2022 Telephone encounter Rip perez DO Work Phone: Hematology/Oncology Comment on above: handicapp placard re quest Start: 05-27-2022 End: 05-27-2022 ambulatory Treatment Rm 5 [facility] Work Phone: Hematology/Oncology Comment on above: Bone metastases (HCC ) (Primary Dx); Malignant neoplasm metastatic to lung, unspecified laterality (HCC); Malignant neoplasm of lower-inner quadrant of right breast of female, estrogen receptor positive (HCC) Start: 05-25-2022 Telephone encounter Rip perez DO Work Phone: Hematology/Oncology Comment on above: Results (Low potassi um) Start: 05-25-2022 End: 05-25-2022 Patient encounter procedure Rip Rivers DO Work Phone: [facility] Start: 05-25-2022 End: 05-25-2022 ambulatory Lab/Port [facility] Work Phone: Hematology/Oncology Comment on above: Malignant neoplasm m etastatic to lung, unspecified laterality (HCC); Bone metastases (HCC); Malignant neoplasm of lower-inner quadrant of right breast of female, estrogen receptor positive (HCC) Malignant neoplasm o f lower-inner quadrant of right breast of female, estrogen receptor positive (HCC) (Primary Dx); Bone metastases (HCC); Skin, 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); Malignant neoplasm metastatic to both lungs (HCC) Start: 05-21-2022 Refill Caity silverio APRN.TERRITORY DEVELOPMENT MANAGER Work Phone: Hematology/Oncology Comment on above: Refill Request Start: 05-10-2022 Refill Rip Gallardo Work Phone: Hematology/Oncology Comment on above: Refill Request Start: 05-06-2022 End: 05-06-2022 ambulatory Treatment Rm 5 [facility] Work Phone: Hematology/Oncology Comment on above: Malignant neoplasm m etastatic to lung, unspecified laterality (HCC) (Primary Dx); Bone metastases (HCC); Malignant neoplasm of lower-inner quadrant of right breast of female, estrogen receptor positive (HCC); Chemotherapy induced diarrhea Start: 04-26-2022 End: 04-26-2022 ambulatory Lab/Port [facility] Work Phone: Hematology/Oncology Comment on above: Malignant neoplasm m etastatic to lung, unspecified laterality (HCC) (Primary Dx) Start: 04-26-2022 End: 04-26-2022 Subsequent hospital visit by physician Ct Prep [facility] Cat Scan Comment on above: Malignant neoplasm o f lower-inner quadrant of right breast of female, estrogen receptor positive (HCC) [C50.311, Z17.0] Start: 04-22-2022 Non-patient / Non-visit Dr. Montanez Work Phone: [facility] Start: 04-22-2022 End: 04-22-[address] Mitch Mejia Work Phone: [facility] Work Phone: Start: 04-22-2022 End: 04-22-[address] Mitch Mejia Work Phone: [facility] Start: 04-19-2022 Telephone encounter Caity bhandari APRN.TERRITORY DEVELOPMENT MANAGER Work Phone: Hematology/Oncology Comment on above: Electronic Communica tion Start: 04-15-2022 End: 04-15-2022 ambulatory Treatment Rm 5 [facility] Work Phone: Hematology/Oncology Comment on above: Bone metastases (HCC ) (Primary Dx); Malignant neoplasm metastatic to lung, unspecified laterality (HCC); Malignant neoplasm of lower-inner quadrant of right breast of female, estrogen receptor positive (HCC) Start: 04-14-2022 Telephone encounter Rip perez DO Work Phone: Hematology/Oncology Comment on above: AVS Start: 04-14-2022 End: 04-14-2022 Patient encounter procedure Caity Cote APRN.TERRITORY DEVELOPMENT MANAGER Work Phone: [facility] [place] Start: 04-14-2022 End: 04-14-2022 ambulatory Lab/[facility] Work Phone: Hematology/Oncology Comment on above: Malignant neoplasm o f lower-inner quadrant of right breast of female, estrogen receptor positive (HCC) (Primary Dx); Malignant neoplasm metastatic to lung, unspecified laterality (HCC); Bone metastases (HCC) Malignant neoplasm o f lower-inner quadrant of right breast of female, estrogen receptor positive (HCC) (Primary Dx); Bone metastases (HCC); Chemotherapy-induced neuropathy (HCC); Encounter for monitoring cardiotoxic drug therapy Start: 04-06-2022 End: 04-06-[address] Mitch Mejia Work Phone: [facility] Start: 03-18-2022 End: 03-18-2022 ambulatory Treatment Rm 5 [facility] Work Phone: Hematology/Oncology Comment on above: Malignant neoplasm m etastatic to lung, unspecified laterality (HCC) (Primary Dx); Bone metastases (HCC); Malignant neoplasm of lower-inner quadrant of right breast of female, estrogen receptor positive (HCC) Start: 03-01-2022 Telephone encounter Rip perez DO Work Phone: Hematology/Oncology Comment on above: Patient Update Start: 02-25-2022 End: 02-25-2022 ambulatory Treatment 8 [facility] Work Phone: Hematology/Oncology Comment on above: Bone metastases (HCC ) (Primary Dx); Malignant neoplasm metastatic to lung, unspecified laterality (HCC); Malignant neoplasm of lower-inner quadrant of right breast of female, estrogen receptor positive (HCC) Start: 02-24-2022 End: 02-24-2022 Patient encounter procedure Caity Ctoe APRN.TERRITORY DEVELOPMENT MANAGER Work Phone: [facility] Start: 02-24-2022 End: 02-24-2022 ambulatory Lab/Port [facility] Work Phone: Hematology/Oncology Comment on above: Malignant neoplasm m etastatic to lung, unspecified laterality (HCC); Bone metastases (HCC); Malignant neoplasm of lower-inner quadrant of right breast of female, estrogen receptor positive (HCC) Malignant neoplasm o f lower-inner quadrant of right breast of female, estrogen receptor positive (HCC) (Primary Dx); Bone metastases (HCC); Chemotherapy-induced neuropathy (HCC) Start: 02-16-2022 Refill Rip Gallardo Work Phone: Hematology/Oncology Comment on above: Refill Request Start: 02-04-2022 End: 02-04-2022 ambulatory Treatment Rm 5 [facility] Work Phone: Hematology/Oncology Comment on above: Bone metastases (HCC ) (Primary Dx); Malignant neoplasm metastatic to lung, unspecified laterality (HCC); Malignant neoplasm of lower-inner quadrant of right breast of female, estrogen receptor positive (HCC); Chemotherapy induced diarrhea Start: 02-03-2022 Refill Rip Gallardo Work Phone: Hematology/Oncology Comment on above: Refill Request Start: 02-03-2022 End: 02-03-2022 Patient encounter procedure Rip Rivers DO Work Phone: [facility] Start: 02-03-2022 End: 02-03-2022 ambulatory Lab/Port [facility] Work Phone: Hematology/Oncology Comment on above: Skin, metastatic can cer to (HCC) (Primary Dx); Malignant neoplasm metastatic to lung, unspecified laterality (HCC); Bone metastases (HCC); Malignant neoplasm of lower-inner quadrant of right breast of female, estrogen receptor positive (HCC) Malignant neoplasm o f lower-inner quadrant of right breast of female, estrogen receptor positive (HCC) (Primary Dx); Bone metastases (HCC); Chemotherapy-induced neuropathy (HCC) Start: 01-14-2022 End: 01-14-2022 ambulatory Treatment Rm 9 [facility] Work Phone: Hematology/Oncology Comment on above: Bone metastases (HCC ) (Primary Dx); Malignant neoplasm metastatic to lung, unspecified laterality (HCC); Malignant neoplasm of lower-inner quadrant of right breast of female, estrogen receptor positive (HCC) Start: 01-08-2022 Non-patient / Non-visit Dr. Montanez Work Phone: [facility] Start: 01-08-2022 End: 01-08-[address] Mitch Mejia Work Phone: [facility] Start: 01-07-2022 Telephone encounter Rip perez DO Work Phone: Hematology/Oncology Comment on above: Orders Start: 01-07-2022 End: 01-07-2022 ambulatory Lab/[place] [facility] Work Phone: Hematology/Oncology Comment on above: Malignant neoplasm m etastatic to both lungs (HCC) (Primary Dx); Malignant neoplasm metastatic to lung, unspecified laterality (HCC); Bone metastases (HCC); Malignant neoplasm of lower-inner quadrant of right breast of female, estrogen receptor positive (HCC) Start: 01-07-2022 End: 01-07-2022 Subsequent hospital visit by physician Ct Prep [facility] Cat Scan Comment on above: Malignant neoplasm o f lower-inner quadrant of right breast of female, estrogen receptor positive (HCC) [C50.311, Z17.0] Start: 12-25-2021 Telephone encounter Rip perez DO Work Phone: Hematology/Oncology Comment on above: Patient Question Start: 12-24-2021 Telephone encounter Caity bhandari APRN.TERRITORY DEVELOPMENT MANAGER Work Phone: Hematology/Oncology Comment on above: Orders Start: 12-24-2021 End: 12-24-2021 ambulatory Treatment Rm 8 [facility] Work Phone: Hematology/Oncology Comment on above: Bone metastases (HCC ) (Primary Dx); Malignant neoplasm metastatic to lung, unspecified laterality (HCC); Malignant neoplasm of lower-inner quadrant of right breast of female, estrogen receptor positive (HCC) Start: 12-23-2021 End: 12-23-2021 Patient encounter procedure Caity Cote APRN.TERRITORY DEVELOPMENT MANAGER Work Phone: [facility] [employer] Start: 12-23-2021 End: 12-23-2021 ambulatory Lab/[place] [facility] Work Phone: Hematology/Oncology Comment on above: Malignant neoplasm m etastatic to lung, unspecified laterality (HCC); Bone metastases (HCC); Malignant neoplasm of lower-inner quadrant of right breast of female, estrogen receptor positive (HCC) Malignant neoplasm o f lower-inner quadrant of right breast of female, estrogen receptor positive (HCC) (Primary Dx); Bone metastases (HCC); Malignant neoplasm metastatic to both lungs (HCC); Skin, 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) Start: 12-02-2021 End: 12-02-2021 Patient encounter procedure Rip Rivers DO Work Phone: [facility] [employer] Start: 12-02-2021 End: 06-29-2022 ambulatory Lab/Port [facility] Work Phone: Hematology/Oncology Comment on above: Malignant neoplasm m etastatic to both lungs (HCC) (Primary Dx); Malignant neoplasm metastatic to lung, unspecified laterality (HCC); Bone metastases (HCC); Malignant neoplasm of lower-inner quadrant of right breast of female, estrogen receptor positive (HCC) Malignant neoplasm o f lower-inner quadrant of right breast of female, estrogen receptor positive (HCC) (Primary Dx); Malignant neoplasm metastatic to both lungs (HCC); Bone metastases (HCC); Skin, 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) Start: 11-12-2021 End: 11-12-2021 ambulatory Treatment Rm 2 [facility] Work Phone: Hematology/Oncology Comment on above: Bone metastases (HCC ) (Primary Dx); Malignant neoplasm metastatic to lung, unspecified laterality (HCC); Malignant neoplasm of lower-inner quadrant of right breast of female, estrogen receptor positive (HCC) Start: 11-11-2021 End: 11-11-2021 ambulatory Rpi Rivers DO Work Phone: Hematology/Oncology Comment on above: Malignant neoplasm o f lower-inner quadrant of right breast of female, estrogen receptor positive (HCC) (Primary Dx); Skin, 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); Bone metastases (HCC); Malignant neoplasm metastatic to both lungs (HCC) Start: 11-11-2021 End: 11-11-2021 Patient encounter procedure Rip Rivers DO Work Phone: [facility] Start: 11-09-2021 End: 11-09-2021 ambulatory Treatment Rm 6 [facility] Work Phone: Hematology/Oncology Comment on above: Bone metastases (HCC ) (Primary Dx); Chemotherapy induced diarrhea Start: 11-06-2021 End: 11-06-2021 ambulatory Lab/Port [facility] [employer] Work Phone: Hematology/Oncology Comment on above: Malignant neoplasm m etastatic to lung, unspecified laterality (HCC); Bone metastases (HCC); Malignant neoplasm of lower-inner quadrant of right breast of female, estrogen receptor positive (HCC) Start: 11-06-2021 End: 11-06-2021 Subsequent hospital visit by physician [facility] ([facility]) Work Phone: Cat Scan Comment on above: Malignant neoplasm o f lower-inner quadrant of right breast of female, estrogen receptor positive (HCC) [C50.311, Z17.0] Start: 10-27-2021 Non-patient / Non-visit Dr. Montanez Work Phone: [facility] Start: 10-27-2021 End: 10-27-[address] Mitch Mejia Work Phone: [facility] Start: 10-22-2021 End: 10-22-2021 ambulatory Treatment Rm 12 [facility] Work Phone: Hematology/Oncology Comment on above: Bone metastases (HCC ) (Primary Dx); Malignant neoplasm metastatic to lung, unspecified laterality (HCC); Malignant neoplasm of lower-inner quadrant of right breast of female, estrogen receptor positive (HCC) Start: 10-21-2021 Telephone encounter Caity bhandari APRN.TERRITORY DEVELOPMENT MANAGER Work Phone: Hematology/Oncology Comment on above: Orders Start: 10-21-2021 End: 10-21-2021 Patient encounter procedure Caity Cote APRN.TERRITORY DEVELOPMENT MANAGER Work Phone: [facility] [place] Start: 10-21-2021 End: 10-21-2021 ambulatory Lab/Port [facility] Work Phone: Hematology/Oncology Comment on above: Malignant neoplasm o f lower-inner quadrant of right breast of female, estrogen receptor positive (HCC) (Primary Dx); Malignant neoplasm metastatic to lung, unspecified laterality (HCC) Malignant neoplasm o f lower-inner quadrant of right breast of female, estrogen receptor positive (HCC) (Primary Dx); Bone metastases (HCC); Skin, 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); Chemotherapy-induced cardiomyopathy (HCC); Malignant neoplasm of right breast in female, estrogen receptor positive, unspecified site of breast (HCC) Start: 10-01-2021 End: 10-01-2021 ambulatory Treatment Rm 9 [facility] Work Phone: Hematology/Oncology Comment on above: Bone metastases (HCC ) (Primary Dx); Malignant neoplasm metastatic to lung, unspecified laterality (HCC); Malignant neoplasm of lower-inner quadrant of right breast of female, estrogen receptor positive (HCC) Start: 09-30-2021 End: 09-30-2021 Patient encounter procedure Rip Rivers DO Work Phone: [facility] Start: 09-30-2021 End: 09-30-2021 ambulatory Lab/Port [facility] Work Phone: Hematology/Oncology Comment on above: Malignant neoplasm m etastatic to both lungs (HCC) (Primary Dx); Malignant neoplasm of lower-inner quadrant of right breast of female, estrogen receptor positive (HCC); Malignant neoplasm metastatic to lung, unspecified laterality (HCC) Malignant neoplasm o f lower-inner quadrant of right breast of female, estrogen receptor positive (HCC) (Primary Dx); Bone metastases (HCC); Skin, 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) Start: 09-15-2021 End: 09-15-[address] Mitch Mejia Work Phone: [facility] Start: 09-11-2021 Telephone encounter Carla Almonte RN He matology/Oncology Comment on above: Health Concierge - O ther (C1D1 Post Treatment Call ) Start: 09-10-2021 End: 09-10-2021 ambulatory Treatment Rm 3 [facility] Work Phone: Hematology/Oncology Comment on above: Malignant neoplasm m etastatic to both lungs (HCC) (Primary Dx); Bone metastases (HCC); Malignant neoplasm metastatic to lung, unspecified laterality (HCC); Malignant neoplasm of lower-inner quadrant of right breast of female, estrogen receptor positive (HCC) Start: 09-09-2021 End: 09-09-[address] Work Phone: [facility] Start: 09-09-2021 End: 09-09-2021 Nutrition therapy Cris Ash[address] RD Work Phone: Radiation Oncology Comment on above: Nutrition Assessment Start: 09-08-2021 Telephone encounter Malini Pipero SOURAV Zaheer Hematology/Oncology Comment on above: Social Work Services Start: 09-07-2021 End: 09-07-2021 Social Work Malini WHARTON Hematology/Oncology Comment on above: Thyroid nodule [E04. 1] Start: 09-04-2021 Telephone encounter Financial Navigator [facility] Work Phone: Hematology/Oncology Comment on above: Benefits Investigati on Start: 09-03-2021 Telephone encounter Malini Samuel Schwab Hematology/Oncology Comment on above: Psychosocial Assessm ent Health Concierge - O ther (Nutrition Consult/Treatment Question ) Start: 09-03-2021 End: 09-03-2021 adjunct faculty for medical terminology [facility] Work Phone: Hematology/Oncology Comment on above: Malignant neoplasm o f lower-inner quadrant of right female breast, unspecified estrogen receptor status (HCC) (Primary Dx) Start: 09-02-2021 Telephone encounter Carla Almonte RN He matology/Oncology Comment on above: Health Concierge - O ther (Follow-up/US ) Start: 09-02-2021 End: 09-02-2021 Patient encounter procedure Rip Rivers DO Work Phone: [facility] Start: 09-02-2021 End: 09-02-2021 ambulatory Rip Rivers DO Work Phone: Hematology/Oncology Comment on above: Malignant neoplasm o f lower-inner quadrant of right breast of female, estrogen receptor positive (HCC) (Primary Dx); Malignant neoplasm metastatic to both lungs (HCC); Skin, 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); Thyroid nodule Malignant neoplasm o f lower-inner quadrant of right breast of female, estrogen receptor positive (HCC); Malignant neoplasm metastatic to lung, unspecified laterality (HCC) Start: 08-25-2021 End: 08-25-2021 Subsequent hospital visit by physician Pet [facility] [address] Comment on above: Malignant neoplasm o f lower-inner quadrant of right breast of female, estrogen receptor positive (HCC) [C50.311, Z17.0] Start: 07-13-2021 Non-patient / Non-visit Dr. Montanez Work Phone: [facility] Start: 07-13-2021 End: 07-13-[address] Mitch Mejia Work Phone: [facility] Procedures Date Procedure Procedure Detail Performing Clinician Start: 12-12-2024 Blood count complete auto&auto difrntl wbc Rip A Masci DO Work Phone: Start: 11-21-2024 Blood count complete auto&auto difrntl wbc Rip A Masci DO Work Phone: Start: 10-31-2024 Blood count complete auto&auto difrntl wbc Rip A Masci DO Work Phone: Start: 10-10-2024 Blood count complete auto&auto difrntl wbc Rip A Masci DO Work Phone: Start: 10-03-2024 Blood count complete auto&auto difrntl wbc Rip A Masci DO Work Phone: Start: 09-05-2024 Blood count complete auto&auto difrntl wbc Rip A Masci DO Work Phone: Start: 08-30-2024 Blood count complete auto&auto difrntl wbc Rip A Masci DO Work Phone: Start: 08-15-2024 Blood count complete auto&auto difrntl wbc Rip A Masci DO Work Phone: Start: 07-25-2024 Blood count complete auto&auto difrntl wbc Rip A Masci DO Work Phone: Start: 07-04-2024 Blood count complete auto&auto difrntl wbc Rip A Masci DO Work Phone: Start: 06-13-2024 Blood count complete auto&auto difrntl wbc Rip A Masci DO Work Phone: Start: 05-23-2024 Blood count complete auto&auto difrntl wbc Rip A Masci DO Work Phone: Start: 05-02-2024 Blood count complete auto&auto difrntl wbc Rip Borja Masci DO Work Phone: Start: 04-11-2024 Blood count complete auto&auto difrntl wbc Rip Borja Masci DO Work Phone: Start: 03-21-2024 Blood count complete auto&auto difrntl wbc Rip Borja Masci DO Work Phone: Start: 02-27-2024 Blood count complete auto&auto difrntl wbc Rip Borja Masci DO Work Phone: Start: 02-03-2024 CBC + DIFF Rip Borja Mas ci DO Work Phone: Start: 02-03-2024 Comprehensive metabo lic panel Rip Borja Masci DO Work Phone: Start: 01-16-2024 Blood count complete auto&auto difrntl wbc Rip Borja Masci DO Work Phone: Start: 01-04-2024 Ct thorax w/o contra st material Rip Borja Masci DO Work Phone: Start: 01-04-2024 Blood count complete auto&auto difrntl wbc Rip Borja Masci DO Work Phone: Start: 12-15-2023 CREATININE BLD Caity Ca rpenter CUTTER BRAKE LINING.TERRITORY DEVELOPMENT MANAGER Work Phone: Start: 12-14-2023 Blood count complete auto&auto difrntl wbc Rip Borja Masci DO Work Phone: Start: 11-23-2023 Blood count complete auto&auto difrntl wbc Rip Borja Masci DO Work Phone: Start: 11-11-2023 Blood count complete auto&auto difrntl wbc Rip Borja Masci DO Work Phone: Start: 11-02-2023 Blood count complete auto&auto difrntl wbc Rip Borja Masci DO Work Phone: Start: 10-11-2023 Blood count complete auto&auto difrntl wbc Rip Borja Masci DO Work Phone: Start: 09-21-2023 Blood count complete auto&auto difrntl wbc Rip Borja Masci DO Work Phone: Start: 08-30-2023 Blood count complete auto&auto difrntl wbc Rip Borja Masci DO Work Phone: Start: 08-16-2023 Computed tomography of abdomen and pelvis with intravenous contrast Dr. Williams Farrell Work Phone: Start: 08-10-2023 Blood count complete auto&auto difrntl wbc Rip Borja Masci DO Work Phone: Start: 07-20-2023 Blood count complete auto&auto difrntl wbc Rip Borja Masci DO Work Phone: Start: 04-26-2023 Blood count complete auto&auto difrntl wbc Rip Borja Masci DO Work Phone: Start: 03-23-2023 Us soft tissue head & neck real time imge docm Rip Borja Masci DO Work Phone: Start: 03-16-2023 Blood count complete auto&auto difrntl wbc Rip Borja Masci DO Work Phone: Start: 03-11-2023 Ct thorax w/o contra st material Rip Borja Masci DO Work Phone: Start: 02-23-2023 Blood count complete auto&auto difrntl wbc Rip Borja Masci DO Work Phone: Start: 02-17-2023 Plain chest X-ray Dr. Mary Mejia Work Phone: Start: 02-17-2023 CT angiography of ch est with contrast Dr. Mitch Mejia Work Phone: Start: 02-16-2023 CT of chest without contrast Dr. Mitch Mejia Work Phone: Start: 02-16-2023 Plain chest X-ray Dr. Mary Mejia Work Phone: Start: 02-02-2023 Blood count complete auto&auto difrntl wbc Rip Borja Masci DO Work Phone: Start: 01-26-2023 Ct abdomen & pelvis w/contrast material Rip Borja Masci DO Work Phone: Start: 01-26-2023 Ct thorax w/contrast material Rip Borja Masci DO Work Phone: Start: 01-12-2023 Blood count complete auto&auto difrntl wbc Rip Borja Masci DO Work Phone: Start: 12-01-2022 Blood count complete auto&auto difrntl wbc Rip Borja Masci DO Work Phone: Start: 11-10-2022 Radex spine lumbosac ral 2/3 views Rip Borja Masci DO Work Phone: Start: 11-10-2022 Blood count complete auto&auto difrntl wbc Rip Borja Masci DO Work Phone: Start: 10-18-2022 Ct abdomen & pelvis w/contrast material Rip Borja Masci DO Work Phone: Start: 10-18-2022 Ct thorax w/contrast material Rip Borja Masci DO Work Phone: Start: 10-18-2022 Blood count complete auto&auto difrntl wbc Rip Borja Masci DO Work Phone: Start: 09-30-2022 Blood count complete auto&auto difrntl wbc Rip Borja Masci DO Work Phone: Start: 09-22-2022 End: 09-22-2022 Digital breast tomosynthesis unilateral Rip Borja Masci DO Work Phone: Start: 09-08-2022 Blood count complete auto&auto difrntl wbc Rip Borja Masci DO Work Phone: Start: 08-23-2022 MAXIM SCREENING W OMI Pa millie Jonh Masci DO Work Phone: Start: 08-23-2022 Mammography Mammograph y Coordinator Start: 07-27-2022 Ct abdomen & pelvis w/contrast material Rip Borja Masci DO Work Phone: Start: 07-27-2022 Ct thorax w/contrast material Rip Borja Masci DO Work Phone: Start: 07-06-2022 Blood count complete auto&auto difrntl wbc Rip Borja Masci DO Work Phone: Start: 06-15-2022 Blood count complete auto&auto difrntl wbc Rip Borja Masci DO Work Phone: Start: 05-25-2022 Blood count complete auto&auto difrntl wbc Rip Borja Masci DO Work Phone: Start: 05-06-2022 End: 05-06-2022 Blood count complete auto&auto difrntl wbc Rip Borja Masci DO Work Phone: Start: 04-26-2022 Ct abdomen & pelvis w/contrast material Caity Cote [employer]TERRITORY DEVELOPMENT MANAGER Work Phone: Start: 04-26-2022 Ct thorax w/contrast material Caity Cote [employer]TERRITORY DEVELOPMENT MANAGER Work Phone: Start: 04-14-2022 Blood count complete auto&auto difrntl wbc Rip Borja Masci DO Work Phone: Start: 03-18-2022 Blood count complete auto&auto difrntl wbc Rip Borja Masci DO Work Phone: Start: 02-24-2022 Blood count complete auto&auto difrntl wbc Rip Borja Masci DO Work Phone: Start: 02-03-2022 Blood count complete auto&auto difrntl wbc Rip Borja Masci DO Work Phone: Start: 01-07-2022 Ct abdomen & pelvis w/contrast material Caity Cote [employer].TERRITORY DEVELOPMENT MANAGER Work Phone: Start: 01-07-2022 Ct thorax w/contrast material Caity Cote [employer].TERRITORY DEVELOPMENT MANAGER Work Phone: Start: 01-07-2022 Blood count complete auto&auto difrntl wbc Rip Borja Masci DO Work Phone: Start: 12-23-2021 Blood count complete auto&auto difrntl wbc Rip Rivers DO Work Phone: Start: 12-02-2021 Blood count complete auto&auto difrntl wbc Rip Rivers DO Work Phone: Start: 11-11-2021 Adult depression scr eening assessment Rip Rivers DO Work Phone: Start: 11-06-2021 Ct abdomen & pelvis w/contrast material Canaan Cote [employer].TERRITORY DEVELOPMENT MANAGER Work Phone: Start: 11-06-2021 Ct thorax w/contrast material Canaan Cote [employer].TERRITORY DEVELOPMENT MANAGER Work Phone: Start: 11-06-2021 Blood count complete auto&auto difrntl wbc Rip Rivers DO Work Phone: Start: 10-21-2021 Blood count complete auto&auto difrntl wbc Caity Cote [employer].TERRITORY DEVELOPMENT MANAGER Work Phone: Start: 09-30-2021 Blood count complete auto&auto difrntl wbc Canaan Cote [employer]TERRITORY DEVELOPMENT MANAGER Work Phone: Start: 09-07-2021 Us soft tissue head & neck real time imge docm Rip Rivers DO Work Phone: Start: 09-02-2021 Blood count complete auto&auto difrntl wbc Canaan Cote [employer]TERRITORY DEVELOPMENT MANAGER Work Phone: Start: 08-25-[address] atten uation skull base mid-thigh Rip Rivers DO Work Phone: Start: 01-29-2021 Adult depression scr eening assessment Pet 2 Start: 05-18-2018 Mammography Pet 2 Start: 11-30-2016 Chemotherapy Chemotherapy eLesa Garcia Plan of Treatment Date Care Activity Detail Author Start: 12-13-2027 Diabetes Screening Diabetes Screenin g [facility] Start: 11-22-2027 Diabetes Screening Diabetes Screenin [facility] Start: 11-01-2027 Diabetes Screening Diabetes Screenin g [facility] Start: 10-11-2027 Diabetes Screening Diabetes Screenin g [facility] Start: 10-04-2027 Diabetes Screening Diabetes Screenin g [facility] Start: 09-06-2027 Diabetes Screening Diabetes Screenin g [facility] Start: 08-31-2027 Diabetes Screening Diabetes Screenin g [facility] Start: 08-16-2027 Diabetes Screening Diabetes Screenin g [facility] Start: 07-25-2027 Diabetes Screening Diabetes Screenin g [facility] Start: 07-04-2027 Diabetes Screening Diabetes Screenin g [facility] Start: 06-13-2027 Diabetes Screening Diabetes Screenin g [facility] Start: 05-23-2027 Diabetes Screening Diabetes Screenin g [facility] Start: 05-02-2027 Diabetes Screening Diabetes Screenin g [facility] Start: 04-11-2027 Diabetes Screening Diabetes Screenin g [facility] Start: 03-21-2027 Diabetes Screening Diabetes Screenin g [facility] Start: 02-26-2027 Diabetes Screening Diabetes Screenin g [facility] Start: 02-02-2027 Diabetes Screening Diabetes Screenin g [facility] Start: 01-15-2027 Diabetes Screening Diabetes Screenin g [facility] Start: 01-03-2027 Diabetes Screening Diabetes Screenin g [facility] Start: 12-13-2026 Diabetes Screening Diabetes Screenin g [facility] Start: 11-22-2026 Diabetes Screening Diabetes Screenin g [facility] Start: 11-01-2026 Diabetes Screening Diabetes Screenin g [facility] Start: 10-10-2026 Diabetes Screening Diabetes Screenin g [facility] Start: 09-20-2026 Diabetes Screening Diabetes Screenin g [facility] Start: 08-29-2026 Diabetes Screening Diabetes Screenin g [facility] Start: 08-09-2026 Diabetes Screening Diabetes Screenin g [facility] Start: 07-20-2026 Diabetes Screening Diabetes Screenin g [facility] Start: 04-26-2026 Diabetes Screening Diabetes Screenin g [facility] Start: 04-06-2026 Diabetes Screening Diabetes Screenin g [facility] Start: 03-16-2026 Diabetes Screening Diabetes Screenin g [facility] Start: 02-23-2026 Diabetes Screening Diabetes Screenin g [facility] Start: 02-02-2026 DIABETES SCREEN DIABETES SCREEN [facility] Start: 02-02-2026 Diabetes Screening Diabetes Screenin g [facility] Start: 01-12-2026 DIABETES SCREEN DIABETES SCREEN [facility] Start: 12-22-2025 DIABETES SCREEN DIABETES SCREEN [facility] Start: 12-01-2025 DIABETES SCREEN DIABETES SCREEN [facility] Start: 11-10-2025 DIABETES SCREEN DIABETES SCREEN [facility] Start: 10-18-2025 DIABETES SCREEN DIABETES SCREEN [facility] Start: 09-30-2025 DIABETES SCREEN DIABETES SCREEN [facility] Start: 09-30-2025 End: 09-30-2025 Patient encounter procedure 09/30/2025 10:40 AM EDT Office Visit [facility] [address] [place] [address] Isac Billingsley MD [address] [facility], [address] [place] [id number] [facility] Start: 09-29-2025 Medicare Annual Well ness Visit Medicare Annual Wellness Visit (AWV) [facility] Start: 09-08-2025 DIABETES SCREEN DIABETES SCREEN [facility] Start: 08-18-2025 DIABETES SCREEN DIABETES SCREEN [facility] Start: 07-27-2025 DIABETES SCREEN DIABETES SCREEN [facility] Start: 07-06-2025 DIABETES SCREEN DIABETES SCREEN [facility] Start: 06-15-2025 DIABETES SCREEN DIABETES SCREEN [facility] Start: 05-25-2025 DIABETES SCREEN DIABETES SCREEN [facility] Start: 05-06-2025 DIABETES SCREEN DIABETES SCREEN [facility] Start: 04-14-2025 DIABETES SCREEN DIABETES SCREEN [facility] Start: 03-18-2025 DIABETES SCREEN DIABETES SCREEN [facility] Start: 02-24-2025 DIABETES SCREEN DIABETES SCREEN [facility] Start: 02-04-2025 Influenza vaccination Influenza Vacc ine (#1) [facility] Start: 02-03-2025 DIABETES SCREEN DIABETES SCREEN [facility] Start: 01-24-2025 End: 01-24-2025 ambulatory 01/24/2025 8:30 AM EDT Infusion Center Hematology/Oncology [address] [place] [address] Q3WK ONTRUZANT(PORT)/LAB&OV 01/23* THUR EARLY AM APPTS - NEXT Q3MO ZOMETA DUE 03/28 Hematology/Oncology Comment on above: Q3WK ONTRUZANT(PORT) /LAB&OV 01/23* THUR EARLY AM APPTS - NEXT Q3MO ZOMETA DUE 03/28 Start: 01-23-2025 End: 01-23-2025 ambulatory Hematology/Oncology Comment on above: (SO)CBC/CMP(S)(PORT) /OV TODAY* OV/LABS EARLY(PORT)C HEMO 01/24* MASCI - WED EARLY AM APPTS Start: 01-07-2025 DIABETES SCREEN DIABETES SCREEN [facility] Start: 01-03-2025 End: 01-03-2025 ambulatory Hematology/Oncology Comment on above: Q3WK ONTRUZANT(PORT) /LAB&OV 01/02* THUR EARLY AM APPTS -Q3MO ZOMETA DUE AGAIN 12/27 Q3MO ZOMETA/Q3WK ONT RUZANT(PORT)/LAB&OV 01/02* THUR EARLY AM APPTS - NEXT Q3MO ZOMETA DUE 03/28 Start: 01-02-2025 End: 01-02-2025 ambulatory Hematology/Oncology Comment on above: (SO)CBC/CMP(S)(PORT) /OV TODAY* OV/LABS EARLY(PORT)C HEMO 01/03* MASCI - WED EARLY AM APPTS OV/LABS EARLY(PORT)C HEMO 01/03/CT 12/26* MASCI - WED EARLY AM APPTS Start: 12-27-2024 End: 12-27-2024 Specialty Pharmacy [facility] Comment on above: Refill - Capecitabin e [21DS Omnisys] Dx: Malignant neopla sm of lower-inner quadrant of right breast of female, estrogen receptor positive (HCC) [C50.311, Z17.0]; HER2-positive carcinoma of breast (HCC) [C50.919, Z17.31]; Malignant neoplasm metastatic to bone (HCC) [C79.51]; Malignant neoplasm metastatic to both lungs (HCC) [C78.01, C78.02]; 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, T45.1X5A] ACCESS PORT FOR CT Start: 12-26-2024 End: 03-27-2025 Creatinine and Glomerular filtration rate.predicted panel - Serum, Plasma or Blood CREATININE BLD Lab Routine Malignant neoplasm of lower-inner quadrant of right breast of female, estrogen receptor positive (HCC) HER2-positive carcinoma of breast (HCC) Malignant neoplasm metastatic to bone (HCC) Malignant neoplasm metastatic to both lungs (HCC) Chemotherapy-induced cardiomyopathy (HCC) Expected: 12/26/2024 (Approximate), Expires: 03/27/2025 [facility] Comment on above: Expected: 12/26/2024 (Approximate), Expires: 03/27/2025 Start: 12-26-2024 End: 01-11-2026 CT Abdomen and Pelvis W contrast IV CT ABD/PEL W IVCON Radiology Routine Malignant neoplasm of lower-inner quadrant of right breast of female, estrogen receptor positive (HCC) HER2-positive carcinoma of breast (HCC) Malignant neoplasm metastatic to bone (HCC) Malignant neoplasm metastatic to both lungs (HCC) Chemotherapy-induced cardiomyopathy (HCC) Expected: 12/26/2024 (Approximate), Expires: 01/11/2026 [facility] Work Phone: Comment on above: Expected: 12/26/2024 (Approximate), Expires: 01/11/2026 Start: 12-26-2024 End: 01-11-2026 CT Chest W contrast IV CT CHEST W IVCON Radiology Routine Malignant neoplasm of lower-inner quadrant of right breast of female, estrogen receptor positive (HCC) HER2-positive carcinoma of breast (HCC) Malignant neoplasm metastatic to bone (HCC) Malignant neoplasm metastatic to both lungs (HCC) Chemotherapy-induced cardiomyopathy (HCC) Expected: 12/26/2024 (Approximate), Expires: 01/11/2026 [facility] Comment on above: Expected: 12/26/2024 (Approximate), Expires: 01/11/2026 Start: 12-26-2024 End: 12-26-2024 ambulatory 12/26/2024 1:45 PM EDT Infusion Center Hematology/Oncology [address] [place], [place] [id number] Wstr, Lab/Port [facility] [address] [place], [place] [id number] ACCESS PORT FOR CT Hematology/Oncology Comment on above: ACCESS PORT FOR CT Start: 12-26-2024 End: 12-26-2024 Patient encounter procedure Cat Scan Comment on above: Dx: Malignant neopla sm of lower-inner quadrant of right breast of female, estrogen receptor positive (HCC) [C50.311, Z17.0]; HER2-positive carcinoma of breast (HCC) [C50.919, Z17.31]; Malignant neoplasm metastatic to bone (HCC) [C79.51]; Malignant neoplasm metastatic to both lungs (HCC) [C78.01, C78.02]; 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, T45.1X5A] Start: 12-23-2024 DIABETES SCREEN DIABETES SCREEN [facility] Start: 12-13-2024 End: 12-13-2024 ambulatory Hematology/Oncology Comment on above: Q3WK ONTRUZANT(PORT) /LAB&OV 12/12* THUR EARLY AM APPTS -Q3MO ZOMETA DUE AGAIN 12/27 Q3WK ONTRUZANT(PORT) /LAB&OV 12/12* THUR EARLY AM APPTS -Q3MO ZOMETA DUE AGAIN 01/03 Start: 12-12-2024 End: 12-12-2024 ambulatory Hematology/Oncology Comment on above: (SO)CBC/CMP(S)(PORT) /OV TODAY* OV/LABS EARLY(PORT)C HEMO 12/13* MASCI -WED EARLY AM APPTS Start: 12-11-2024 End: 12-11-2024 Specialty Pharmacy 12/11/2024 7:45 AM EDT Specialty Pharmacy [facility] [address] [place] [id number] [place] [address] Pharmacist, [facility] [address] [place] [address] [place] [address] Refill - Capecitabine [21DS Omnisys] C012/13 RTS 7/ LVM 7/ [facility] Comment on above: Refill - Capecitabin e [21DS Omnisys] C07/10 RTS 7/2 LVM 7/2 Start: 12-06-2024 End: 12-06-2024 Specialty Pharmacy 12/06/2024 7:30 AM EDT Specialty Pharmacy [facility] [address] [place] [address] [address] [place] [address] Pharmacist, [facility] [address] [place] [address] [place] [address] Refill - Capecitabine [21DS Omnisys] C012/13 [facility] Comment on above: Refill - Capecitabin e [21DS Omnisys] Start: 12-02-2024 DIABETES SCREEN DIABETES SCREEN [facility] Start: 11-29-2024 End: 11-29-2024 ambulatory 11/29/2024 2:00 PM EDT Infusion Center Hematology/Oncology [address] [place] [address] Q3WK ONTRUZANT(PORT)/LAB&OV 11/28* - WED/THUR APPTS -Q3MO ZOMETA DUE AGAIN 12/20 Hematology/Oncology Comment on above: Q3WK ONTRUZANT(PORT) /LAB&OV 11/28* - WED/THUR APPTS -Q3MO ZOMETA DUE AGAIN 12/20 Start: 11-28-2024 End: 11-28-2024 ambulatory Hematology/Oncology Comment on above: (SO)CBC/CMP(S)(PORT) /OV TODAY* OV/LABS EARLY(PORT)C HEMO 11/29* - WED/THUR APPTS - CAITY OR MASCI Start: 11-22-2024 End: 11-22-2024 ambulatory 11/22/2024 9:30 AM EDT Infusion Center Hematology/Oncology [address] [place] [address] Q3WK ONTRUZANT(PORT)/LAB&OV 11/21* - THUR EARLY AM APPTS -Q3MO ZOMETA DUE AGAIN 12/27 Hematology/Oncology Comment on above: Q3WK ONTRUZANT(PORT) /LAB&OV 11/21* - THUR EARLY AM APPTS -Q3MO ZOMETA DUE AGAIN 12/27 Start: 11-21-2024 End: 11-21-2024 ambulatory Hematology/Oncology Comment on above: (SO)CBC/CMP(S)(PORT) /OV TODAY* OV/LABS EARLY(PORT)C HEMO 10/25* MASCI - WED EARLY AM APPTS Start: 11-15-2024 End: 11-15-2024 Specialty Pharmacy 11/15/2024 7:00 AM EDT Specialty [facility]acy [facility] [address] [facility] [address] [place] [address] Pharmacist, [facility] [address] [place] [address] [place] [address] Refill - Capecitabine [21DS Omnisys] C011/22 [facility] Comment on above: Refill - Capecitabin e [21DS Omnisys] C011/22 Start: 11-08-2024 End: 11-08-2024 ambulatory Hematology/Oncology Comment on above: Q3WK ONTRUZANT(PORT) /LAB&OV 11/07/MDCR* - wed/amarilys appts -Q3MO ZOMETA DUE AGAIN 12/20 Q3WK ONTRUZANT(PORT) /LAB&OV 11/07* - WED/THUR APPTS -Q3MO ZOMETA DUE AGAIN 12/20 Start: 11-07-2024 End: 11-07-2024 ambulatory Hematology/Oncology Comment on above: (SO)CBC/CMP(S)(PORT) /OV TODAY* OV/LABS EARLY(PORT)C HEMO 6/* - wed/amarilys appts OV/LABS EARLY(PORT)C HEMO 6/* - WED/THUR APPTS - CAITY OR MASCI Start: 11-06-2024 DIABETES SCREEN DIABETES SCREEN [facility] Start: 11-01-2024 End: 11-01-2024 ambulatory Hematology/Oncology Comment on above: Q3WK ONTRUZANT(PORT) /LAB&OV 10/24* - WED/THUR APPTS -Q3MO ZOMETA DUE AGAIN 12/27 Q3WK ONTRUZANT(PORT) /LAB&OV 10/24* - WED/THUR APPTS -Q3MO ZOMETA DUE AGAIN 12/27* NEEDS EARLIEST AM APTS Q3WK ONTRUZANT(PORT) /LAB&OV 10/31* Start: 10-31-2024 End: 10-31-2024 ambulatory Hematology/Oncology Comment on above: (SO)CBC/CMP(S)(PORT) /OV TODAY* OV/LABS EARLY(PORT)C HEMO 10/25* - TUE/ APPTS OV/LABS EARLY(PORT)C HEMO 10/25* - TUE/ APPTS-* NEEDS EARLIEST AM APTS Start: 10-25-2024 End: 10-25-2024 Specialty Pharmacy 10/25/2024 7:15 AM EDT Specialty Pharmacy [facility] [place] [address] Pharmacist, [facility] [address] [place] [address] [place] [phone] Refill - Capecitabine [21D] -Omnisys] - See call log 10/10 pt called setting up refill call accordingly [facility] Comment on above: Refill - Capecitabin e [D] -Omnisys] - See call log 10/10 pt called setting up refill call accordingly Start: 10-21-2024 DIABETES SCREEN DIABETES SCREEN [facility] Start: 10-18-2024 End: 10-18-2024 ambulatory Hematology/Oncology Comment on above: Q3WK ONTRUZANT(PORT) /LAB&OV 10/18/MDCR* - appts -Q3MO ZOMETA DUE AGAIN 12/20 prior treatment canc eled by patient due to illness Start: 10-17-2024 End: 10-17-2024 ambulatory Hematology/Oncology Comment on above: (SO)CBC/CMP(S)(PORT) /OV TODAY* OV/LABS EARLY(PORT)C HEMO 10/18* - appts Start: 10-11-2024 End: 10-11-2024 ambulatory Hematology/Oncology Comment on above: Q3MO ZOMETA/Q3WK ONT RUZANT(PORT)/LAB&OV 10/03* - tue/tue appts -Q3MO ZOMETA DUE AGAIN 12/27 Refill - Capecitabin e [21D] - - rfl rqst'd 10/08 - Omnisys - See call log Q3MO ZOMETA/Q3WK ONT RUZANT(PORT)/LAB&OV 10/10* Start: 10-10-2024 End: 10-10-2024 ambulatory Hematology/Oncology Comment on above: (SO)CBC/CMP(S)(PORT) /OV TODAY* OV Start: 10-08-2024 End: 10-08-2024 Specialty Pharmacy 10/08/2024 7:45 AM EDT Specialty Pharmacy [facility] [address] [place], [place] [phone] Pharmacist, [facility] [address] [place] [address] [place], [place] [phone] Refill - Capecitabine [21D] - - [facility] Comment on above: Refill - Capecitabin e [21D] - - Start: 09-30-2024 DIABETES SCREEN DIABETES SCREEN [facility] Start: 09-27-2024 End: 09-27-2024 ambulatory 09/27/2024 2:00 PM EDT Infusion Center Hematology/Oncology [address] [place] [address] Q3MO ZOMETA/Q3WK ONTRUZANT(PORT)/LAB&OV 09/26/MDCR* - wed/amarilys appts -Q3MO ZOMETA DUE AGAIN 12/20 Hematology/Oncology Comment on above: Q3MO ZOMETA/Q3WK ONT RUZANT(PORT)/LAB&OV 09/26/MDCR* - wed/amarilys appts -Q3MO ZOMETA DUE AGAIN 12/20 Start: 09-26-2024 COVID-19 Vaccine (7 - Moderna risk season) COVID-19 Vaccine (7 - Moderna risk season) [facility] Start: 09-26-2024 Covid-19 Vaccine (8 - Moderna risk season) Covid-19 Vaccine (8 - Moderna risk season) [facility] Start: 09-26-2024 End: 09-26-2024 ambulatory Hematology/Oncology Comment on above: (SO)CBC/CMP(S)(PORT) /OV TODAY* OV/LABS EARLY(PORT)C HEMO 09/27* - wed/amarilys appts Start: 09-17-2024 End: 09-17-2024 Specialty Pharmacy 09/17/2024 7:30 AM EDT Specialty Pharmacy [facility] [address] [place] [address] [address] [place] [address] Pharmacist, [facility] [address] [place] [address] [place] [address] Refill - Capecitabine [21D] - - [facility] Comment on above: Refill - Capecitabin e [21D] - C4/21 - Start: 09-06-2024 End: 09-06-2024 ambulatory 09/06/2024 2:30 PM EDT Infusion Center Hematology/Oncology [address] [place], [place] [id number] Q3WK ONTRUZANT(PORT)/LAB&OV 4/2/MDCR* - wed/amarilys appts -Q3MO ZOMETA DUE 09/27 Hematology/Oncology Comment on above: Q3WK ONTRUZANT(PORT) /LAB&OV 4/2/MDCR* - wed/amarilys appts -Q3MO ZOMETA DUE 09/27 Start: 09-05-2024 End: 09-05-2024 ambulatory Hematology/Oncology Comment on above: (SO)CBC/CMP(S)(PORT) /OV TODAY* OV/LABS EARLY(PORT)C HEMO 4/3* - wed/amarilys appts OV/LABS EARLY(PORT)C HEMO 4/3* - wed/amarilys appts masci Start: 09-02-2024 DIABETES SCREEN DIABETES SCREEN [facility] Start: 08-30-2024 End: 08-30-2024 Patient encounter procedure 08/30/2024 9:20 AM EDT Appointment Cat Scan [address] [place], [place] [id number] Malignant neoplasm of lower-inner quadrant of right breast of female, estrogen r... Cat Scan Comment on above: Malignant neoplasm o f lower-inner quadrant of right breast of female, estrogen r... Start: 08-30-2024 End: 08-30-2024 ambulatory 08/30/2024 9:00 AM EDT Infusion Center Hematology/Oncology [address] [place] [address] Wstr, Lab/Port [facility] [address] [place] [address]* Hematology/Oncology Comment on above: ACCESS PORT FOR CT* Start: 08-30-2024 End: 08-30-2024 Patient encounter procedure Radiology Comment on above: History of thyroid n odule [Z86.39] Malignant neoplasm o f lower-inner quadrant of right breast of female, estrogen r... Start: 08-27-2024 End: 08-27-2024 Specialty Pharmacy 08/27/2024 7:00 AM EDT Specialty Pharmacy [facility] [employer] [address] [place] [address] Pharmacist, [facility] [address] [place] [address] [place] [address] Refill - Capecitabine [21DS] C009/03 [facility] Comment on above: Refill - Capecitabin e [21DS] C03/ Start: 08-16-2024 End: 08-16-2024 ambulatory 08/16/2024 2:30 PM EDT Infusion Center Hematology/Oncology [address] [place] [address] Q3WK ONTRUZANT(PORT)/LAB&OV 08/15/MDCR* - wed/amarilys appts -Q3MO ZOMETA DUE 09/27 Hematology/Oncology Comment on above: Q3WK ONTRUZANT(PORT) /LAB&OV 08/15/MDCR* - wed/amarilys appts -Q3MO ZOMETA DUE 09/27 Start: 08-15-2024 End: 08-15-2024 ambulatory Hematology/Oncology Comment on above: (SO)CBC/CMP(S)(PORT) /OV TODAY* OV/LABS EARLY(PORT)C HEMO 08/16* - wed/amarilys appts Start: 08-12-2024 DIABETES SCREEN DIABETES SCREEN [facility] Start: 08-06-2024 End: 08-06-2024 Specialty Pharmacy [facility] Comment on above: Refill - Capecitabin e [21D] - C310 - Dose Reduction, refill req'd 07/16 Refill - Capecitabin e [21D] - C310 - Dose Reduction on file Start: 07-26-2024 End: 07-26-2024 ambulatory 07/26/2024 2:00 PM EST Infusion Center Hematology/Oncology [address] [place] [address] Q3WK ONTRUZANT(PORT)/LAB&OV 07/25/MDCR* - wed/amarilys appts -Q3MO ZOMETA DUE 09/27 Hematology/Oncology Comment on above: Q3WK ONTRUZANT(PORT) /LAB&OV 07/25/MDCR* - wed/amarilys appts -Q3MO ZOMETA DUE 09/27 Start: 07-25-2024 End: 07-25-2024 ambulatory Hematology/Oncology Comment on above: (SO)CBC/CMP(S)(PORT) /OV TODAY* OV/LABS EARLY(PORT)C HEMO2/20* - wed/amarilys appts OV/LABS EARLY(PORT)C HEMO 07/26* - wed/amarilys appts masci Start: 07-16-2024 End: 07-16-2024 Specialty Pharmacy 07/16/2024 7:00 AM EST Specialty Pharmacy [facility] [address] [place], [place] [id number] [place] [address] Pharmacist, [facility] [address] [place] [address] Refill - Capecitabine [21DS Omnisys Tukysa w/ PAP] C007/23 [facility] Comment on above: Refill - Capecitabin e [21DS Omnisys Tukysa w/ PAP] C007/23 Start: 07-05-2024 End: 07-05-2024 ambulatory 07/05/2024 2:30 PM EST Infusion Center Hematology/Oncology [address] [place] [address] Q3MO ZOMETA/Q3WK ONTRUZANT(PORT)/LAB&OV 07/04/MDCR* - wed/amarilys appts -Q3MO ZOMETA DUE 09/27 Hematology/Oncology Comment on above: Q3MO ZOMETA/Q3WK ONT RUZANT(PORT)/LAB&OV 07/04/MDCR* - wed/amarilys appts -Q3MO ZOMETA DUE 09/27 Start: 07-04-2024 End: 07-04-2024 ambulatory Hematology/Oncology Comment on above: (SO)CBC/CMP(S)(PORT) /OV TODAY* OV/LABS EARLY(PORT)C HEMO 07/05* - wed/amarilys appts OV/LABS EARLY(PORT)C HEMO 07/05* - wed/amarilys appts masci Start: 07-02-2024 End: 07-02-2024 Specialty Pharmacy 07/02/2024 7:15 AM EST Specialty Pharmacy [id number] [place] [address] Pharmacist, [facility] [address] [place] [address] [id number] Refill - Capecitabine [21DS Omnisys Tukysa w/ PAP] C007/09 [facility] Comment on above: Refill - Capecitabin e [21DS Omnisys Tukysa w/ PAP] C007/09 Start: 06-14-2024 End: 06-14-2024 ambulatory Hematology/Oncology Comment on above: Q3WK ONTRUZANT/Q3MO ZOMETA(PORT)/LAB&OV 06/13/MDCR* - wed/amarilys appts -Q3MO ZOMETA DUE 07/05 Q3WK ONTRUZANT/(PORT )/LAB&OV 06/13/MDCR* - wed/amarilys appts -Q3MO ZOMETA DUE 07/05 Coming in at 130/FLU SHOT Q3WK ONTRUZANT/(PORT)/LAB&OV 06/13/MDCR* - wed/amarilys appts -Q3MO ZOMETA DUE 07/05 Start: 06-13-2024 End: 06-13-2024 ambulatory Hematology/Oncology Comment on above: (SO)CBC/CMP(S)(PORT) /OV TODAY* OV/LABS EARLY(PORT)C HEMO 1/9* - wed/amarilys appts Start: 06-07-2024 End: 06-07-2024 Specialty Pharmacy 06/07/2024 8:00 AM EST Specialty Pharmacy [facility] [address] [place] [address] Pharmacist, [facility] [address] [place] [address] [place] [address] Refill - Capecitabine [21DS Omnisys Tukysa w/ PAP] C006/11 - refill rqst 06/01 [facility] Comment on above: Refill - Capecitabin e [21DS Omnisys Tukysa w/ PAP] C006/11 - refill rqst 06/01 Start: 06-06-2024 Advance Directive Discussion Advance Directive Discussion [facility] Start: 06-04-2024 End: 06-04-2024 Specialty Pharmacy 06/04/2024 7:45 AM EST Specialty Pharmacy [facility] [address] [place], [place] [id number] [place] [phone] Pharmacist, [facility] [address] [place] [address] [place] [address] Refill - Capecitabine [21DS Omnisys Tukysa w/ PAP] C006/11 [facility] Comment on above: Refill - Capecitabin e [21DS Omnisys Tukysa w/ PAP] C006/11 Start: 05-24-2024 End: 05-24-2024 ambulatory Hematology/Oncology Comment on above: Q3WK ONTRUZANT/Q3MO ZOMETA(PORT)/LAB&OV 05/23/MDCR* - wed/amarilys appts -Q3MO ZOMETA DUE 07/05 Q3WK ONTRUZANT/(PORT )/LAB&OV 05/23/MDCR* - wed/amarilys appts -Q3MO ZOMETA DUE 07/05 IN AT 10:00 AM(patie nt request d/t family in [facility])/Q3WK ONTRUZANT/(PORT)/LAB&OV 05/23/MDCR* - wed/amarilys appts -Q3MO ZOMETA DUE 07/05 Start: 05-23-2024 Covid-19 Vaccine ( season) Covid-19 Vaccine ( season) [facility] Start: 05-23-2024 End: 05-23-2024 ambulatory Hematology/Oncology Comment on above: (SO)CBC/CMP(S)(PORT) /OV TODAY* OV/LABS EARLY(PORT)C HEMO - tue/amarilys appts Start: 05-14-2024 End: 05-14-2024 Specialty Pharmacy 05/14/2024 7:30 AM EST Specialty Pharmacy [facility] [address] [place] [address] Pharmacist, [facility] [address] [place] [address] [place] [address] Refill - Capecitabine [21DS Omnisys Tukysa w/ PAP] [facility] Comment on above: Refill - Capecitabin e [21DS Omnisys Tukysa w/ PAP] Start: 05-04-2024 End: 05-04-2024 ambulatory 05/04/2024 2:00 PM EST Infusion Center Hematology/Oncology [address] [place] [address] NO THUR APPT DUE TO [facility] Hematology/Oncology Comment on above: NO THUR APPT DUE TO [facility] Start: 05-02-2024 End: 05-02-2024 ambulatory Hematology/Oncology Comment on above: (SO)CBC/CMP(S)(PORT) /OV TODAY* OV/LABS EARLY(PORT)C HEMO 05/04* - tue/amarilys appts Start: 04-24-2024 End: 04-24-2024 ambulatory 04/24/2024 10:00 AM EST Infusion Center Hematology/Oncology [address] [place] [address] Wstr, Lab/Port [facility] [address] [place] [address] Hematology/Oncology Comment on above: ACCESS PORT FOR CT Start: 04-24-2024 End: 04-24-2024 Patient encounter procedure Cat Scan Comment on above: Malignant neoplasm o f lower-inner quadrant of right breast of female, estrogen receptor positive (HCC) [C50.311, Z17.0] Start: 04-20-2024 End: 04-20-2024 Specialty Pharmacy 04/20/2024 7:15 AM EST Specialty Pharmacy [facility] [address] [place] [address] Pharmacist, [facility] [address] [place] [address] [place] [address] Refill - Capecitabine [21DS Omnisys Tukysa w/ PAP] [facility] Comment on above: Refill - Capecitabin e [21DS Omnisys Tukysa w/ PAP] Start: 04-12-2024 End: 04-12-2024 ambulatory 04/12/2024 9:30 AM [facility] Infusion Center Hematology/Oncology [address] [place] [address] Q3WK ONTRUZANT/Q3MO ZOMETA(PORT)/LAB&OV 04/11/MDCR* - wed/amarilys appts -Q3MO ZOMETA DUE 07/05 Hematology/Oncology Comment on above: Q3WK ONTRUZANT/Q3MO ZOMETA(PORT)/LAB&OV 04/11/MDCR* - wed/amarilys appts -Q3MO ZOMETA DUE 07/05 Start: 04-11-2024 End: 04-11-2024 ambulatory Hematology/Oncology Comment on above: (SO)CBC/CMP(S)(PORT) /OV TODAY* OV/LABS EARLY(PORT)C HEMO 04/12* - wed/amarilys appts Start: 03-30-2024 End: 03-30-2024 Specialty Pharmacy 03/30/2024 7:30 AM EDT Specialty Pharmacy [facility] [address] [place] [address] Pharmacist, [facility] [address] [place] [address] [place] [address] Refill - Capecitabine [21DS Omnisys Tukysa w/ PAP] [facility] Comment on above: Refill - Capecitabin e [21DS Omnisys Tukysa w/ PAP] Start: 03-22-2024 End: 03-22-2024 ambulatory Hematology/Oncology Comment on above: Q3WK ONTRUZANT(PORT) /LAB&OV 03/21/MDCR* - tue/tue appts -Q3MO ZOMETA DUE 04/09 Q3WK ONTRUZANT(PORT) /LAB&OV 03/21/MDCR* - tue/tue appts -Q3MO ZOMETA DUE 04/[address] C/A/P week of Start: 03-21-2024 End: 03-21-2024 ambulatory Hematology/Oncology Comment on above: Q3WK ONTRUZANT(PORT) /LAB&OV 03/20/MDCR* Q3MO ZOMETA DUE 03/08 (SO)CBC/CMP(S)(PORT) /OV TODAY* OV/LABS EARLY(PORT)C HEMO 03/22* - appts Start: 03-20-2024 End: 03-20-2024 ambulatory Hematology/Oncology Comment on above: (SO)CBC/CMP(S)(PORT) /OV TODAY* OV/LABS EARLY(PORT)C HEMO 03/21* Start: 03-12-2024 End: 03-12-2024 Specialty Pharmacy 03/12/2024 7:30 AM EDT Specialty Pharmacy [facility] [address] [place], [place] [id number] [place] [address] Pharmacist, [facility] [address] [place] [address] [place] [address] Refill - Capecitabine [21DS Omnisys Tukysa w/ PAP] [facility] Comment on above: Refill - Capecitabin e [21DS Omnisys Tukysa w/ PAP] Start: 02-28-2024 End: 02-28-2024 ambulatory Hematology/Oncology Comment on above: Q3WK ONTRUZANT(PORT) /LAB & OV 02/26/MDCR* Q3MO ZOMETA DUE 03/08 Q3WK ONTRUZANT(PORT) /LAB & OV 02/26/MDCR* wed/amarilys appts Start: 02-27-2024 End: 02-27-2024 ambulatory Hematology/Oncology Comment on above: (SO)CBC/CMP(S)(PORT) /OV TODAY* OV/LABS EARLY(PORT)C HEMO 02/27* Start: 02-20-2024 End: 02-20-2024 Specialty Pharmacy 02/20/2024 7:30 AM EDT Specialty Pharmacy [facility] [address] [place] [address] Pharmacist, [facility] [address] [place] [address] Refill - Capecitabine [21DS Omnisys Tukysa w/ PAP] - [facility] Comment on above: Refill - Capecitabin e [21DS Omnisys Tukysa w/ PAP] - Start: 02-16-2024 End: 02-16-2024 ambulatory 02/16/2024 3:00 PM EDT Infusion Center Hematology/Oncology [address] [place] [address] Q3WK ONTRUZANT(PORT)/LAB & OV 02/14/MDCR* Q3MO ZOMETA DUE 03/08 Hematology/Oncology Comment on above: Q3WK ONTRUZANT(PORT) /LAB & OV 02/14/MDCR* Q3MO ZOMETA DUE 03/08 Start: 02-15-2024 End: 02-15-2024 ambulatory Hematology/Oncology Comment on above: (SO)CBC/CMP(S)(PORT) /OV TODAY* OV/LABS EARLY(PORT)C HEMO 02/15* Start: 02-08-2024 End: 02-08-2024 ambulatory 02/08/2024 8:30 AM EDT Infusion Center Hematology/Oncology [address] [place], [place] [address] Q3WK ONTRUZANT(PORT)/LAB & OV 02/02/MDCR* Q3MO ZOMETA DUE 03/08 Hematology/Oncology Comment on above: Q3WK ONTRUZANT(PORT) /LAB & OV 02/02/MDCR* Q3MO ZOMETA DUE 03/08 Start: 02-05-2024 Covid-19 Vaccine ( season) Covid-19 Vaccine ( season) [facility] Start: 02-05-2024 Covid-19 Vaccine ( season) Covid-19 Vaccine () [facility] Start: 02-05-2024 Influenza vaccination C [facility] Start: 02-03-2024 End: 02-03-2024 ambulatory Hematology/Oncology Comment on above: (SO)CBC/CMP(S)(PORT) /OV TODAY* OV/LABS EARLY(PORT)C HEMO 02/07* Start: 01-30-2024 End: 01-30-2024 Specialty Pharmacy 01/30/2024 7:30 AM EDT Specialty Pharmacy [facility] [address] [place] [address] Pharmacist, [facility] [address] [place] [address] [place] [address] Refill - Capecitabine [21DS Omnisys Tukysa w/ PAP] C002/02 - LVM 01/25 [facility] Comment on above: Refill - Capecitabin e [21DS Omnisys Tukysa w/ PAP] C002/02 - LVM 01/25 Start: 01-27-2024 End: 01-27-2024 Specialty Pharmacy 01/27/2024 7:00 AM EDT Specialty Pharmacy [facility] [address] [place] [address] Pharmacist, [facility] [address] [place] [address] [place] [address] Refill - Capecitabine [21DS Omnisys Tukysa w/ PAP] C002/02 [facility] Comment on above: Refill - Capecitabin e [21DS Omnisys Tukysa w/ PAP] C002/02 Start: 01-26-2024 End: 01-26-2024 ambulatory 01/26/2024 3:30 PM EDT Infusion Center Hematology/Oncology [address] [place] [address] Q3WK ONTRUZANT(PORT)/LAB & OV 01/24/MDCR* Q3MO ZOMETA DUE 03/08 Hematology/Oncology Comment on above: Q3WK ONTRUZANT(PORT) /LAB & OV 01/24/MDCR* Q3MO ZOMETA DUE 03/08 Start: 01-25-2024 End: 01-25-2024 ambulatory Hematology/Oncology Comment on above: (SO)CBC/CMP(S)(PORT) /OV TODAY* OV/LABS EARLY(PORT)C HEMO 01/25* Start: 01-16-2024 End: 01-16-2024 Follow-up encounter 01/16/2024 3:30 PM EDT [facility] Radiation Oncology [address] [place] [address] Meenu Garay MD [address] [place] [address] 3 MO FOLLOW UP/CT 01/10* Radiation Oncology Comment on above: 3 MO FOLLOW UP/CT 01/10* Start: 01-16-2024 End: 01-16-2024 ambulatory 01/16/2024 9:00 AM EDT Infusion Center Hematology/Oncology [address] [place] [address] (SO)CBC/CMP(S) /Q3WK ONTRUZANT(PORT)MDCR* Q3MO ZOMETA DUE 03/08 Hematology/Oncology Comment on above: (SO)CBC/CMP(S) /Q3WK ONTRUZANT(PORT)MDCR* Q3MO ZOMETA DUE 03/08 Start: 01-11-2024 End: 11-26-2024 CT Chest WO contrast CT CHEST WO IVCON Radiology Routine Secondary malignant neoplasm of right lung (HCC) Expected: 01/11/2024 (Approximate), Expires: 11/26/2024 [facility] Work Phone: Comment on above: Expected: 01/11/2024 (Approximate), Expires: 11/26/2024 Start: 01-11-2024 End: 01-11-2024 Patient encounter procedure 01/11/2024 9:00 AM EDT Appointment Cat Scan [address] [place] [address] Secondary malignant neoplasm of right lung (HCC) [C78.01] Cat Scan Comment on above: Secondary malignant neoplasm of right lung (HCC) [C78.01] Start: 01-05-2024 End: 01-05-2024 ambulatory Hematology/Oncology Comment on above: Q3WK ONTRUZANT(PORT) /LAB & OV 01/03/MDCR* Q3MO ZOMETA DUE 03/08 Q3WK ONTRUZANT(PORT) /LAB & OV 01/03/MDCR* Q3MO ZOMETA HELD ON12/15/23. IF CR 1.1 CAN GIVE TODAY PER [facility] Start: 01-04-2024 End: 01-04-2024 Patient encounter procedure 01/04/2024 3:40 PM EDT Appointment Cat Scan [address] [place] [address] Malignant neoplasm of lower-inner quadrant of right breast of female, estrogen receptor positive (HCC) [C50.311, Z17.0]; Orthopnea [R06.01]; Interstitial pulmonary disease (HCC) [J84.9] Cat Scan Comment on above: Malignant neoplasm o f lower-inner quadrant of right breast of female, estrogen receptor positive (HCC) [C50.311, Z17.0]; Orthopnea [R06.01]; Interstitial pulmonary disease (HCC) [J84.9] Start: 01-04-2024 End: 01-04-2024 ambulatory Hematology/Oncology Comment on above: (SO)CBC/CMP(S)(PORT) /OV TODAY* OV/LABS EARLY(PORT)C HEMO 01/04* Start: 12-30-2023 End: 12-30-2023 Specialty Pharmacy 12/30/2023 7:00 AM EDT Specialty Pharmacy [facility] [employer] [facility] [address] [place] [address] Pharmacist, [facility] [address] [place] [address] [place] [address] Refill - Capecitabine [21DS Omni Tukysa w/ PAP] C001/05 [facility] Comment on above: Refill - Capecitabin e [21DS Omni Tukysa w/ PAP] C001/05 Start: 12-22-2023 End: 12-22-2023 ambulatory 12/22/2023 10:45 AM EDT Infusion Center Hematology/Oncology [address] [place], [place] [address] Wstr, Lab/Port [facility] [address] [place] [address] PORT ACCESS FOR IMAGING* Hematology/Oncology Comment on above: PORT ACCESS FOR IMAG ING* Start: 12-22-2023 End: 12-22-2023 Patient encounter procedure Cat Scan Comment on above: Malignant neoplasm o f lower-inner quadrant of right breast of female, estrogen receptor positive (HCC) [C50.311, Z17.0]; Malignant neoplasm metastatic to lung, unspecified laterality (HCC) [C78.00]; Malignant neoplasm metastatic to bone (HCC) [C79.51]; HER2-positive carcinoma of breast (HCC) [C50.919]; 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, T45.1X5A]; 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, T45.1X5A] Start: 12-15-2023 End: 12-15-2023 ambulatory 12/15/2023 3:30 PM EDT Infusion Center Hematology/Oncology [address] [place], [place] [address] Q3WK ONTRUZANT/Q3MO ZOMETA(PORT)/LAB & OV 12/13/MDCR* Q3MO ZOMETA DUE 03/08 Hematology/Oncology Comment on above: Q3WK ONTRUZANT/Q3MO ZOMETA(PORT)/LAB & OV 12/13/MDCR* Q3MO ZOMETA DUE 03/08 Start: 12-14-2023 End: 12-14-2023 ambulatory Hematology/Oncology Comment on above: (SO)CBC/CMP(S)(PORT) /OV TODAY* OV/LABS EARLY(PORT)C HEMO 12/14* OV/LABS EARLY(PORT)C HEMO 12/14* [facility] Start: 12-09-2023 End: 12-09-2023 Specialty Pharmacy 12/09/2023 7:00 AM EDT Specialty Pharmacy [facility] [address] [employer] [facility] [address] [place] [address] Pharmacist, [facility] [address] [place] [address] [place] [address] Refill - Capecitabine [21DS Omni Tukysa w/ PAP] C012/15 [facility] Comment on above: Refill - Capecitabin e [21DS Omni Tukysa w/ PAP] C012/15 Start: 11-24-2023 End: 11-24-2023 ambulatory 11/24/2023 3:30 PM EDT Infusion Center Hematology/Oncology [address] [place] [address] Q3WK ONTRUZANT(PORT)/LAB & OV 11/22/MDCR* Q3MO ZOMETA DUE 12/14 Hematology/Oncology Comment on above: Q3WK ONTRUZANT(PORT) /LAB & OV 11/22/MDCR* Q3MO ZOMETA DUE 12/14 Start: 11-23-2023 End: 11-23-2023 ambulatory Hematology/Oncology Comment on above: (SO)CBC/CMP(S)(PORT) /OV TODAY* OV/LABS EARLY(PORT)C HEMO 11/23* Start: 11-18-2023 End: 11-18-2023 Specialty Pharmacy [facility] Comment on above: Refill - Capecitabin e [21DS Omni] C6/22? Confirm Cycle start date. 10/31MD asked pt to start med 11/03 Refill - Capecitabin e [21DS Omni Tukysa PAP] C6/22? Confirm Cycle start date. 10/31MD asked pt to start med 11/03 Start: 11-11-2023 End: 11-11-2023 ambulatory [facility] [place] [facility] Laboratory Comment on above: CBC (SO)CBC Start: 11-03-2023 End: 11-03-2023 ambulatory 11/03/2023 3:30 PM EDT Infusion Center Hematology/Oncology [address] [place] [address] Q3WK ONTRUZANT(PORT)/LAB & OV 11/01/MDCR* Q3MO ZOMETA DUE 12/14 Hematology/Oncology Comment on above: Q3WK ONTRUZANT(PORT) /LAB & OV 11/01/MDCR* Q3MO ZOMETA DUE 12/14 Start: 11-02-2023 End: 11-02-2023 ambulatory Hematology/Oncology Comment on above: (SO)CBC/CMP(S)(PORT) /OV TODAY* OV/LABS EARLY(PORT)C HEMO 11/02* masci Start: 10-28-2023 End: 10-28-2023 ambulatory Radiation Oncology Comment on above: 4 WK F/U* Refill - Capecitabin e (21 DS) C6/1? Confirm Cycle start date Start: 10-13-2023 End: 10-13-2023 ambulatory 10/13/2023 3:30 PM EDT Infusion Center Hematology/Oncology [address] [place] [address] Q3WK ONTRUZANT(PORT)/LAB & OV 10/10/MDCR* Q3MO ZOMETA DUE 12/14 Hematology/Oncology Comment on above: Q3WK ONTRUZANT(PORT) /LAB & OV 10/10/MDCR* Q3MO ZOMETA DUE 12/14 Start: 10-11-2023 End: 10-11-2023 ambulatory Hematology/Oncology Comment on above: (SO)CBC/CMP(S)(PORT) /OV TODAY* OV/LABS EARLY(PORT)C HEMO 10/12* Start: 09-30-2023 End: 09-30-2023 Patient encounter procedure 09/30/2023 1:45 PM EDT Appointment Radiation Oncology [address] [place] [address] Location: [email or web address] Comment on above: Location: [email or web address] Start: 2023 End: 2023 Patient encounter procedure Radiation Oncology Comment on above: Location: [facility] Location: [facility] Start: 09-23-2023 Screening for malign ant neoplasm of breast Mammogram [facility] Start: 08-24-2023 Mammography [facility] Start: 08-24-2023 Screening for malign ant neoplasm of breast Mammogram Screening [facility] Start: 08-17-2023 [facility] Start: 08-16-2023 Venous catheter care management [facility] Start: 06-06-2023 Advance Directive Discussion Advance Directive Discussion [facility] Start: 06-06-2023 Behavioral Health Screening Behavioral Health Screening [facility] Start: 06-06-2023 Depression Assessment Depression Ass essment [facility] Start: 06-01-2023 End: 04-28-2024 Ct thorax w/o contrast material CT CHEST WO IVCON Radiology Routine Malignant neoplasm metastatic to left lung (HCC) Expected: 06/01/2023 (Approximate), Expires: 04/28/2024 [facility] Work Phone: Comment on above: Expected: 06/01/2023 (Approximate), Expires: 04/28/2024 Start: 05-25-2023 COVID-19 Vaccine (5 - Moderna series) COVID-19 Vaccine (5 - Moderna series) [facility] Start: 05-25-2023 Covid-19 Vaccine () Covid-19 Vaccine () [facility] Start: 02-17-2023 Patient discharge [facility] Start: 02-17-2023 Venous catheter care management [facility] Start: 02-17-2023 Assessment of risk o f venous thromboembolism [facility] Start: 02-17-2023 Inhalation therapy procedure [facility] Start: 02-17-2023 Insertion of cathete r into peripheral vein [facility] Start: 02-17-2023 Measuring intake and output [facility] Start: 02-17-2023 Oxygen therapy [facility] Start: 02-17-2023 Providing care accor ding to standard [facility] Start: 02-17-2023 Provision of activit y privileges [facility] Start: 02-17-2023 [facility] Start: 02-17-2023 Verification routine [facility] Start: 02-17-2023 [facility] Start: 02-16-2023 Pulmonary ventilatio n perfusion study Quant Lung Vent/Perf Scan [facility] Start: 02-16-2023 Admission procedure [facility] Start: 02-16-2023 Venous catheter care management [facility] Start: 02-16-2023 [facility] Start: 02-04-2023 Covid-19 Vaccine ( season) Covid-19 Vaccine ( season) [facility] Start: 02-04-2023 Influenza vaccination C [facility] Start: 11-11-2022 Adult depression scr eening assessment DEPRESSION SCREENING [facility] Start: 07-26-2022 COVID-19 VACCINE (6 - Moderna series) COVID-19 VACCINE (6 - Moderna series) [facility] Start: 06-06-2022 ADVANCE DIRECTIVE DISCUSSION ADVANCE DIRECTIVE DISCUSSION [facility] Start: 06-06-2022 DEPRESSION ASSESSMENT DEPRESSION ASS ESSMENT [facility] Start: 02-04-2022 Influenza vaccination C [facility] Start: 01-29-2022 Adult depression scr eening assessment DEPRESSION SCREENING [facility] Start: 01-17-2022 COVID-19 VACCINE (5 - Booster for Moderna series) COVID-19 VACCINE (5 - Booster for Moderna series) [facility] Start: 11-12-2021 COVID-19 VACCINE (5 - Booster for Moderna series) COVID-19 VACCINE (5 - Booster for Moderna series) [facility] Start: 07-03-2021 COVID-19 VACCINE (4 - Booster for Moderna series) COVID-19 VACCINE (4 - Booster for Moderna series) [facility] Start: 06-06-2021 ADVANCE DIRECTIVE DISCUSSION ADVANCE DIRECTIVE DISCUSSION [facility] Start: 06-06-2021 DEPRESSION ASSESSMENT DEPRESSION ASS ESSMENT [facility] Start: 02-04-2021 Influenza vaccination INFLUENZA (#1) [facility] Start: 06-06-2019 Medicare Annual Well ness Visit Medicare Annual Wellness Visit [facility] Start: 05-18-2019 Mammography MAMMOGRAM [facility] Start: 05-18-2019 Screening for malign ant neoplasm of cervix Cervical Cancer Screening [facility] Start: 2018 Pneumococcal Vaccine : 65+ Years (1 - PCV) Pneumococcal Vaccine: 65+ Years (1 - PCV) [facility] Start: 2018 PNEUMOVAX AGE 65 AND OVER WITH 5YR LOOKBACK (#1) PNEUMOVAX AGE 65 AND OVER WITH 5YR LOOKBACK (#1) [facility] Start: 06-02-2017 End: 06-02-2017 Appointment Appointment [facility] Work Phone: Start: 05-26-2017 End: 12-01-2016 Echocardiography Echocardiogram (complete) [facility] Work Phone: Start: 12-01-2016 End: 12-01-2016 Appointment Appointment [facility] Work Phone: Start: 12-01-2016 End: 12-01-2016 MENTAL HEALTH PROFESSIONAL MENTAL HEALTH PROFESSIONAL [facility] Work Phone: Start: 12-01-2016 End: 12-01-2016 Electrocardiogram, complete EKG (In office) [facility] Work Phone: Start: 12-01-2016 End: 12-01-2016 Follow Up Appt 6 months Follow Up Appt 6 months [facility] Work Phone: Start: 2013 RSV Vaccine (1 - 1-d ose 60+ series) RSV Vaccine (1 - 1-dose 60+ series) [facility] Start: 2013 RSV Vaccine (1 - Ris k 60-74 years 1-dose series) RSV Vaccine (1 - Risk 60-74 years 1-dose series) [facility] Start: 09-29-2003 Pneumococcal vaccination Pneum ococcal Vaccine (1 of 1 - PCV) [facility] Start: 09-29-2003 SHINGRIX VACCINE (1 of 2) FRIED GRIX VACCINE (1 of 2) [facility] Start: 09-29-2003 Zoster Vaccines (1 of 2) Zoste r Vaccines (1 of 2) [facility] Start: 1998 COLOGUARD (FIT-DNA) COLOGUARD (FIT-D NA) [facility] Start: 1998 Colonoscopy COLONOSCOPY [facility] Start: 1998 COLORECTAL CANCER SCREENING COLORECTAL CANCER SCREENING [facility] Start: [address] COLONOGRAPHY [facility] Start: 1998 FECAL OCCULT BLOOD FECAL OCCULT BLOO D [facility] Start: 1998 Lipid 1996 panel - S felix or Plasma Lipid Screening [facility] Start: 1998 Lipid panel Lipid Screening [facility] Start: 1998 LIPID SCREEN LIPID SCREEN [facility] Start: 1998 Screening for malign ant neoplasm of colon [facility] Start: 1998 SIGMOIDOSCOPY SIGMOIDOSCOPY [facility] Start: 09-29-1975 DTaP/Tdap/Td Vaccine s (1 - Tdap) DTaP/Tdap/Td Vaccines (1 - Tdap) [facility] Start: 1972 Pneumococcal Vaccine : 50+ (1 of 2 - PCV) Pneumococcal Vaccine: 50+ (1 of 2 - PCV) [facility] Start: 1972 SHINGRIX VACCINE (1 of 2) FRIED GRIX VACCINE (1 of 2) [facility] Start: 1972 Urine microalbumin profile [facility] Start: 09-29-1971 Anxiety Screening Anxiety Screening [facility] Start: 09-29-1971 Depression Screening Depression Scre ening [facility] Start: 09-29-1971 HEPATITIS C SCREENING HEPATITIS C [facility] Start: 09-29-1971 Hepatitis C screening Hepatitis C Sc [facility] Start: 09-29-1959 Pneumococcal Vaccine : 65+ (1 - PCV) Pneumococcal Vaccine: 65+ (1 - PCV) [facility] Start: 09-29-1959 Pneumococcal Vaccine : 65+ (1 of 2 - PCV) Pneumococcal Vaccine: 65+ (1 of 2 - PCV) [facility] Start: 09-29-1959 PNEUMOCOCCAL: 65+ (1 - PCV) PNEUMOCOCCAL: 65+ (1 - PCV) [facility] Start: 1953 Lipid panel Lipid Panel [facility] Start: 1953 Medicare Annual Well ness Visit Medicare Annual Wellness Visit (AWV) [facility] Start: 1953 Screening for malign ant neoplasm of colon [facility] Start: 1953 Screening for osteoporosis Bone Dens ity Scan [facility] End: 01-10-2025 CARDIO ONCOLOGY ECHO CARDIO ONCOLOGY ECHO Cardiology Routine Chemotherapy induced cardiomyopathy (HCC) Encounter for monitoring cardiotoxic drug therapy 1 Occurrences starting 01/11/2024 until 01/10/2025 [facility] Work Phone: Comment on above: 1 Occurrences starti ng 01/11/2024 until 01/10/2025 End: 11-09-2023 CBC W Auto Differential panel - Blood CBC + DIFF Lab STAT Malignant neoplasm of lower-inner quadrant of right breast of female, estrogen receptor positive (HCC) Malignant neoplasm metastatic to bone (HCC) Malignant neoplasm metastatic to lung, unspecified laterality (HCC) Chemotherapy-induced cardiomyopathy (HCC) Every 3 weeks for 18 Occurrences starting 11/09/2022 until 11/09/2023 [facility] Work Phone: Comment on above: Every 3 weeks for 18 Occurrences starting 11/09/2022 until 11/09/2023 CBC W Auto Different ial panel - Blood COMPLETE BLOOD COUNT AND DIFFERENTIAL Lab STAT Malignant neoplasm of lower-inner quadrant of right breast of female, estrogen receptor positive (HCC) Malignant neoplasm metastatic to lung, unspecified laterality (HCC) Malignant neoplasm metastatic to bone (HCC) HER2-positive carcinoma of breast (HCC) 02/03/2024 9:19 AM EDT [facility] Work Phone: End: 11-09-2023 Comprehensive metabolic 2000 panel - Serum or Plasma COMP METABOLIC PANEL Lab STAT Malignant neoplasm of lower-inner quadrant of right breast of female, estrogen receptor positive (HCC) Malignant neoplasm metastatic to bone (HCC) Malignant neoplasm metastatic to lung, unspecified laterality (HCC) Chemotherapy-induced cardiomyopathy (HCC) Every 3 weeks for 18 Occurrences starting 11/09/2022 until 11/09/2023 [facility] Work Phone: Comment on above: Every 3 weeks for 18 Occurrences starting 11/09/2022 until 11/09/2023 End: 11-20-2022 Ct abdomen & pelvis w/contrast material CT ABD/PEL W IVCON Radiology Routine Malignant neoplasm of lower-inner quadrant of right breast of female, estrogen receptor positive (HCC) Bone metastases (HCC) Skin, 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) Malignant neoplasm of right breast in female, estrogen receptor positive, unspecified site of breast (HCC) 1 Occurrences starting 10/21/2021 until 11/20/2022 [facility] Work Phone: Comment on above: 1 Occurrences starti ng 10/21/2021 until 11/20/2022 End: 01-22-2023 Ct abdomen & pelvis w/contrast material CT ABD/PEL W IVCON Radiology Routine Malignant neoplasm of lower-inner quadrant of right breast of female, estrogen receptor positive (HCC) Bone metastases (HCC) Malignant neoplasm metastatic to both lungs (HCC) Skin, 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) 1 Occurrences starting 12/23/2021 until 01/22/2023 [facility] Work Phone: Comment on above: 1 Occurrences starti ng 12/23/2021 until 01/22/2023 Ct abdomen & pelvis w/contrast material CT ABD/PEL W IVCON Radiology Routine Malignant neoplasm of lower-inner quadrant of right breast of female, estrogen receptor positive (HCC) Bone metastases (HCC) Malignant neoplasm metastatic to both lungs (HCC) Skin, 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) 01/07/2022 10:32 AM EDT [facility] Work Phone: End: 05-14-2023 Ct abdomen & pelvis w/contrast material CT ABD/PEL W IVCON Radiology Routine Malignant neoplasm of lower-inner quadrant of right breast of female, estrogen receptor positive (HCC) Bone metastases (HCC) 1 Occurrences starting 04/14/2022 until 05/14/2023 [facility] Work Phone: Comment on above: 1 Occurrences starti ng 04/14/2022 until 05/14/2023 End: 08-05-2023 Ct abdomen & pelvis w/contrast material CT ABD/PEL W IVCON Radiology Routine Malignant neoplasm of lower-inner quadrant of right breast of female, estrogen receptor positive (HCC) Bone metastases (HCC) Malignant neoplasm metastatic to both lungs (HCC) 1 Occurrences starting 07/06/2022 until 08/05/2023 [facility] Work Phone: Comment on above: 1 Occurrences starti ng 07/06/2022 until 08/05/2023 End: 08-28-2023 Ct abdomen & pelvis w/contrast material CT ABD/PEL W IVCON Radiology Routine Malignant neoplasm of lower-inner quadrant of right breast of female, estrogen receptor positive (HCC) Bone metastases (HCC) Malignant neoplasm metastatic to both lungs (HCC) 1 Occurrences starting 07/30/2022 until 08/28/2023 [facility] Work Phone: Comment on above: 1 Occurrences starti ng 07/30/2022 until 08/28/2023 End: 01-21-2024 Ct abdomen & pelvis w/contrast material CT ABD/PEL W IVCON Radiology Routine Malignant neoplasm of lower-inner quadrant of right breast of female, estrogen receptor positive (HCC) 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) Malignant neoplasm metastatic to both lungs (HCC) 1 Occurrences starting 12/22/2022 until 01/21/2024 [facility] Work Phone: Comment on above: 1 Occurrences starti ng 12/22/2022 until 01/21/2024 End: 01-12-2025 CT Abdomen and Pelvis W contrast IV CT ABD/PEL W IVCON Radiology Routine Malignant neoplasm of lower-inner quadrant of right breast of female, estrogen receptor positive (HCC) Malignant neoplasm metastatic to lung, unspecified laterality (HCC) Malignant neoplasm metastatic to bone (HCC) 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) 1 Occurrences starting 12/14/2023 until 01/12/2025 [facility] Work Phone: Comment on above: 1 Occurrences starti ng 12/14/2023 until 01/12/2025 CT Abdomen and Pelvi s W contrast IV CT ABD/PEL W IVCON Radiology Routine Malignant neoplasm of lower-inner quadrant of right breast of female, estrogen receptor positive (HCC) Malignant neoplasm metastatic to lung, unspecified laterality (HCC) Malignant neoplasm metastatic to bone (HCC) 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) 12/22/2023 11:48 AM EDT [facility] Work Phone: End: 04-21-2025 CT Abdomen and Pelvis W contrast IV CT ABD/PEL W IVCON Radiology Routine Malignant neoplasm of lower-inner quadrant of right breast of female, estrogen receptor positive (HCC) Malignant neoplasm metastatic to bone (HCC) Malignant neoplasm metastatic to both lungs (HCC) 1 Occurrences starting 03/21/2024 until 04/21/2025 [facility] Work Phone: Comment on above: 1 Occurrences starti ng 03/21/2024 until 04/21/2025 CT Abdomen and Pelvi s W contrast IV CT ABD/PEL W IVCON Radiology Routine Malignant neoplasm of lower-inner quadrant of right breast of female, estrogen receptor positive (HCC) Malignant neoplasm metastatic to bone (HCC) Malignant neoplasm metastatic to both lungs (HCC) 04/24/2024 11:01 AM [facility] Work Phone: End: 09-15-2025 CT Abdomen and Pelvis W contrast IV CT ABD/PEL W IVCON Radiology Routine Malignant neoplasm of lower-inner quadrant of right breast of female, estrogen receptor positive (HCC) Malignant neoplasm metastatic to bone (HCC) Malignant neoplasm metastatic to both lungs (HCC) 1 Occurrences starting 08/15/2024 until 09/15/2025 [facility] Comment on above: 1 Occurrences starti ng 08/15/2024 until 09/15/2025 CT Abdomen and Pelvi s W contrast IV CT ABD/PEL W IVCON Radiology Routine Malignant neoplasm of lower-inner quadrant of right breast of female, estrogen receptor positive (HCC) Malignant neoplasm metastatic to bone (HCC) Malignant neoplasm metastatic to both lungs (HCC) 08/30/2024 10:08 AM EDT [facility] End: 01-12-2025 CT Chest W contrast IV CT CHEST W IVCON Radiology Routine Malignant neoplasm of lower-inner quadrant of right breast of female, estrogen receptor positive (HCC) Malignant neoplasm metastatic to lung, unspecified laterality (HCC) Malignant neoplasm metastatic to bone (HCC) 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) 1 Occurrences starting 12/14/2023 until 01/12/2025 [facility] Comment on above: 1 Occurrences starti ng 12/14/2023 until 01/12/2025 CT Chest W contrast IV CT CHEST W IVCON Radiology Routine Malignant neoplasm of lower-inner quadrant of right breast of female, estrogen receptor positive (HCC) Malignant neoplasm metastatic to lung, unspecified laterality (HCC) Malignant neoplasm metastatic to bone (HCC) 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) 12/22/2023 11:48 AM EDT [facility] End: 04-20-2025 CT Chest W contrast IV CT CHEST W IVCON Radiology Routine Malignant neoplasm of lower-inner quadrant of right breast of female, estrogen receptor positive (HCC) Malignant neoplasm metastatic to bone (HCC) Malignant neoplasm metastatic to both lungs (HCC) 1 Occurrences starting 03/21/2024 until 04/20/2025 [facility] Comment on above: 1 Occurrences starti ng 03/21/2024 until 04/20/2025 CT Chest W contrast IV CT CHEST W IVCON Radiology Routine Malignant neoplasm of lower-inner quadrant of right breast of female, estrogen receptor positive (HCC) Malignant neoplasm metastatic to bone (HCC) Malignant neoplasm metastatic to both lungs (HCC) 04/24/2024 11:01 AM [place] End: 09-14-2025 CT Chest W contrast IV CT CHEST W IVCON Radiology Routine Malignant neoplasm of lower-inner quadrant of right breast of female, estrogen receptor positive (HCC) Malignant neoplasm metastatic to bone (HCC) Malignant neoplasm metastatic to both lungs (HCC) 1 Occurrences starting 08/15/2024 until 09/14/2025 [facility] Comment on above: 1 Occurrences starti ng 08/15/2024 until 09/14/2025 CT Chest W contrast IV CT CHEST W IVCON Radiology Routine Malignant neoplasm of lower-inner quadrant of right breast of female, estrogen receptor positive (HCC) Malignant neoplasm metastatic to bone (HCC) Malignant neoplasm metastatic to both lungs (HCC) 08/30/2024 10:08 AM [facility] Work Phone: End: 01-22-2023 CT CHEST W IVCON CT CHEST W IVCON Radiology Routine Malignant neoplasm of lower-inner quadrant of right breast of female, estrogen receptor positive (HCC) Bone metastases (HCC) Malignant neoplasm metastatic to both lungs (HCC) Skin, 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) 1 Occurrences starting 12/23/2021 until 01/22/2023 [facility] Work Phone: Comment on above: 1 Occurrences starti ng 12/23/2021 until 01/22/2023 CT CHEST W IVCON CT CHEST W IVCO N Radiology Routine Malignant neoplasm of lower-inner quadrant of right breast of female, estrogen receptor positive (HCC) Bone metastases (HCC) Malignant neoplasm metastatic to both lungs (HCC) Skin, 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) 01/07/2022 10:32 AM [facility] Work Phone: End: 05-14-2023 CT CHEST W IVCON CT CHEST W IVCON Radiology Routine Malignant neoplasm of lower-inner quadrant of right breast of female, estrogen receptor positive (HCC) Bone metastases (HCC) 1 Occurrences starting 04/14/2022 until 05/14/2023 [facility] Work Phone: Comment on above: 1 Occurrences starti ng 04/14/2022 until 05/14/2023 End: 08-05-2023 CT CHEST W IVCON CT CHEST W IVCON Radiology Routine Malignant neoplasm of lower-inner quadrant of right breast of female, estrogen receptor positive (HCC) Bone metastases (HCC) Malignant neoplasm metastatic to both lungs (HCC) 1 Occurrences starting 07/06/2022 until 08/05/2023 [facility] Work Phone: Comment on above: 1 Occurrences starti ng 07/06/2022 until 08/05/2023 End: 08-29-2023 CT CHEST W IVCON CT CHEST W IVCON Radiology Routine Malignant neoplasm of lower-inner quadrant of right breast of female, estrogen receptor positive (HCC) Bone metastases (HCC) Malignant neoplasm metastatic to both lungs (HCC) 1 Occurrences starting 07/30/2022 until 08/29/2023 [facility] Work Phone: Comment on above: 1 Occurrences starti ng 07/30/2022 until 08/29/2023 End: 01-21-2024 CT CHEST W IVCON CT CHEST W IVCON Radiology Routine Malignant neoplasm of lower-inner quadrant of right breast of female, estrogen receptor positive (HCC) 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) Malignant neoplasm metastatic to both lungs (HCC) 1 Occurrences starting 12/22/2022 until 01/21/2024 [facility] Work Phone: Comment on above: 1 Occurrences starti ng 12/22/2022 until 01/21/2024 CT Chest WO contrast CT CHEST WO IVCON Radiology Routine Malignant neoplasm metastatic to left lung (HCC) 08/03/2023 10:10 AM EST [facility] Work Phone: CT Guidance for radi ation treatment of Unspecified body region CT SIM PLANNING RADIATION ONCOLOGY Radiology Routine Secondary malignant neoplasm of right lung (HCC) Ordered: 09/27/2023 [facility] Work Phone: Comment on above: Ordered: 09/27/2023 CT SIM PLANNING RADI ATION ONCOLOGY CT SIM PLANNING RADIATION ONCOLOGY Radiology Routine Malignant neoplasm metastatic to left lung (HCC) Ordered: 02/09/2023 [facility] Work Phone: Comment on above: Ordered: 02/09/2023 End: 11-20-2022 Ct thorax w/contrast material CT CHEST W IVCON Radiology Routine Malignant neoplasm of lower-inner quadrant of right breast of female, estrogen receptor positive (HCC) Bone metastases (HCC) Skin, 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) Malignant neoplasm of right breast in female, estrogen receptor positive, unspecified site of breast (HCC) 1 Occurrences starting 10/21/2021 until 11/20/2022 [facility] Work Phone: Comment on above: 1 Occurrences starti ng 10/21/2021 until 11/20/2022 End: 03-24-2024 Ct thorax w/o contrast material CT CHEST WO IVCON Radiology Routine Malignant neoplasm metastatic to bone (HCC) 1 Occurrences starting 02/23/2023 until 03/24/2024 [facility] Work Phone: Comment on above: 1 Occurrences starti ng 02/23/2023 until 03/24/2024 End: 01-07-2023 ECHO LIMITED ECHO LIMITED Cardiology Routine Malignant neoplasm metastatic to both lungs (HCC) Malignant neoplasm of right breast in female, estrogen receptor positive, unspecified site of breast (HCC) Skin, 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) 1 Occurrences starting 01/07/2022 until 01/07/2023 [facility] Work Phone: Comment on above: 1 Occurrences starti ng 01/07/2022 until 01/07/2023 End: 10-21-2022 Echocardiography ECHO Cardiology Routine Malignant neoplasm of lower-inner quadrant of right breast of female, estrogen receptor positive (HCC) Bone metastases (HCC) Skin, 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) 1 Occurrences starting 10/21/2021 until 10/21/2022 [facility] Work Phone: Comment on above: 1 Occurrences starti ng 10/21/2021 until 10/21/2022 End: 04-14-2023 Echocardiography ECHO Cardiology Routine Malignant neoplasm of lower-inner quadrant of right breast of female, estrogen receptor positive (HCC) Bone metastases (HCC) Encounter for monitoring cardiotoxic drug therapy 1 Occurrences starting 04/14/2022 until 04/14/2023 [facility] Work Phone: Comment on above: 1 Occurrences starti ng 04/14/2022 until 04/14/2023 End: 06-15-2023 Echocardiography ECHO Cardiology Routine Malignant neoplasm of lower-inner quadrant of right breast of female, estrogen receptor positive (HCC) Bone metastases (HCC) Skin, 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) Malignant neoplasm metastatic to both lungs (HCC) Encounter for monitoring cardiotoxic drug therapy 1 Occurrences starting 06/15/2022 until 06/15/2023 [facility] Work Phone: Comment on above: 1 Occurrences starti ng 06/15/2022 until 06/15/2023 End: 10-21-2023 Echocardiography ECHO Cardiology Routine Chemotherapy-induced cardiomyopathy (HCC) 1 Occurrences starting 10/20/2022 until 10/21/2023 [facility] Work Phone: Comment on above: 1 Occurrences starti ng 10/20/2022 until 10/21/2023 End: 12-23-2023 Echocardiography ECHO Cardiology Routine Malignant neoplasm of lower-inner quadrant of right breast of female, estrogen receptor positive (HCC) 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) Malignant neoplasm metastatic to both lungs (HCC) Encounter for monitoring cardiotoxic drug therapy 1 Occurrences starting 12/22/2022 until 12/23/2023 [facility] Work Phone: Comment on above: 1 Occurrences starti ng 12/22/2022 until 12/23/2023 End: 04-26-2024 Echocardiography ECHO Cardiology Routine Malignant neoplasm metastatic to both lungs (HCC) Encounter for monitoring cardiotoxic drug therapy 1 Occurrences starting 04/26/2023 until 04/26/2024 [facility] Work Phone: Comment on above: 1 Occurrences starti ng 04/26/2023 until 04/26/2024 End: 09-20-2024 Echocardiography ECHO Cardiology Routine Encounter for monitoring cardiotoxic drug therapy 1 Occurrences starting 09/21/2023 until 09/20/2024 [facility] Work Phone: Comment on above: 1 Occurrences starti ng 09/21/2023 until 09/20/2024 End: 11-22-2024 Echocardiography ECHO Cardiology Routine Chemotherapy-induced cardiomyopathy (HCC) Encounter for monitoring cardiotoxic drug therapy 1 Occurrences starting 11/23/2023 until 11/22/2024 [facility] Work Phone: Comment on above: 1 Occurrences starti ng 11/23/2023 until 11/22/2024 End: 01-04-2025 Echocardiography ECHO Cardiology Routine Encounter for monitoring cardiotoxic drug therapy 1 Occurrences starting 01/06/2024 until 01/04/2025 [facility] Work Phone: Comment on above: 1 Occurrences starti ng 01/06/2024 until 01/04/2025 End: 01-05-2025 Echocardiography ECHO Cardiology Routine Encounter for monitoring cardiotoxic drug therapy Chemotherapy induced cardiomyopathy (HCC) 1 Occurrences starting 01/06/2024 until 01/05/2025 [facility] Comment on above: 1 Occurrences starti ng 01/06/2024 until 01/05/2025 End: 08-15-2025 Echocardiography ECHO Cardiology Routine Malignant neoplasm of lower-inner quadrant of right breast of female, estrogen receptor positive (HCC) Malignant neoplasm metastatic to bone (HCC) Malignant neoplasm metastatic to both lungs (HCC) Encounter for monitoring cardiotoxic drug therapy 1 Occurrences starting 08/15/2024 until 08/15/2025 [facility] Comment on above: 1 Occurrences starti ng 08/15/2024 until 08/15/2025 End: 12-12-2025 Echocardiography ECHO Cardiology Routine Malignant neoplasm of lower-inner quadrant of right breast of female, estrogen receptor positive (HCC) HER2-positive carcinoma of breast (HCC) Malignant neoplasm metastatic to bone (HCC) Malignant neoplasm metastatic to both lungs (HCC) Chemotherapy-induced cardiomyopathy (HCC) 1 Occurrences starting 12/12/2024 until 12/12/2025 [facility] Comment on above: 1 Occurrences starti ng 12/12/2024 until 12/12/2025 End: 08-05-2023 MAXIM SCREENING W OMI MAXIM SCREENING W OMI Radiology Routine Encounter for screening mammogram for malignant neoplasm of breast 1 Occurrences starting 07/06/2022 until 08/05/2023 [facility] Work Phone: Comment on above: 1 Occurrences starti ng 07/06/2022 until 08/05/2023 Patient Education Rectal Bleeding Tx [facility] Work Phone: Patient referral [facility] Work Phone: End: 09-08-2024 PET+CT Guidance for localization of tumor of Skull base to mid-thigh-- W 18F-FDG IV NM PET/CT SKULL-THIGH SUBSEQUENT Radiology Routine Malignant neoplasm of lower-inner quadrant of right breast of female, estrogen receptor positive (HCC) Malignant neoplasm metastatic to bone (HCC) Malignant neoplasm metastatic to lung, unspecified laterality (HCC) Malignant neoplasm metastatic to both lungs (HCC) 1 Occurrences starting 08/10/2023 until 09/08/2024 [facility] Work Phone: Comment on above: 1 Occurrences starti ng 08/10/2023 until 09/08/2024 PET+CT Guidance for localization of tumor of Skull base to mid-thigh-- W 18F-FDG IV NM PET/CT SKULL-THIGH SUBSEQUENT Radiology Routine Malignant neoplasm of lower-inner quadrant of right breast of female, estrogen receptor positive (HCC) Malignant neoplasm metastatic to bone (HCC) Malignant neoplasm metastatic to lung, unspecified laterality (HCC) Malignant neoplasm metastatic to both lungs (HCC) 08/22/2023 10:41 AM EDT [facility] Work Phone: End: 12-10-2023 Radex spine lumbosacral 2/3 views XR LUMBAR LIMITED 2V AP/LAT Radiology Routine Chronic left sacroiliac pain 1 Occurrences starting 11/10/2022 until 12/10/2023 [facility] Work Phone: Comment on above: 1 Occurrences starti ng 11/10/2022 until 12/10/2023 Radex spine lumbosac ral 2/3 views XR LUMBAR LIMITED 2V AP/LAT Radiology Routine Chronic left sacroiliac pain 11/10/2022 11:10 AM EDT [facility] Work Phone: End: 12-10-2023 Radiologic examination sacroiliac jnts <3 views XR SACROILIAC JOINTS 2V AP PELVIS/FERGUESON Radiology Routine Chronic left sacroiliac pain 1 Occurrences starting 11/10/2022 until 12/10/2023 [facility] Work Phone: Comment on above: 1 Occurrences starti ng 11/10/2022 until 12/10/2023 Radiologic examinati on sacroiliac jnts <3 views XR SACROILIAC JOINTS 2V AP PELVIS/FERGUESON Radiology Routine Chronic left sacroiliac pain 11/10/2022 11:10 AM EDT [facility] Work Phone: End: 2024 US Abdomen RUQ US ABD RIGHT UPPER QUADRANT Radiology Routine RUQ pain 1 Occurrences starting 08/30/2023 until 2024 [facility] Work Phone: Comment on above: 1 Occurrences starti ng 08/30/2023 until 2024 US Abdomen RUQ US ABD RIGHT UPP ER QUADRANT Radiology Routine RUQ pain 09/15/2023 12:01 PM EDT [facility] Work Phone: End: 09-23-2023 US BREAST LTD LT US BREAST LTD LT Radiology Routine Abnormal mammogram 1 Occurrences starting 08/24/2022 until 09/23/2023 [facility] Work Phone: Comment on above: 1 Occurrences starti ng 08/24/2022 until 09/23/2023 End: 10-02-2022 Us soft tissue head & neck real time imge docm US THYROID/PARATHYROID Radiology Routine Thyroid nodule 1 Occurrences starting 09/02/2021 until 10/02/2022 [facility] Work Phone: Comment on above: 1 Occurrences starti ng 09/02/2021 until 10/02/2022 End: 09-14-2025 US Thyroid gland US THYROID/PARATHYROID Radiology Routine History of thyroid nodule 1 Occurrences starting 08/15/2024 until 09/14/2025 [facility] Work Phone: Comment on above: 1 Occurrences starti ng 08/15/2024 until 09/14/2025 US Thyroid gland US THYROID/PARA THYROID Radiology Routine History of thyroid nodule 08/30/2024 8:04 AM EDT [facility] Work Phone: End: 02-02-2025 XR Chest PA and Lateral XR CHEST 2V FRONTAL/LAT Radiology Routine Malignant neoplasm of lower-inner quadrant of right breast of female, estrogen receptor positive (HCC) Orthopnea 1 Occurrences starting 01/04/2024 until 02/02/2025 [facility] Work Phone: Comment on above: 1 Occurrences starti ng 01/04/2024 until 02/02/2025 XR Chest PA and Lateral XR CHEST 2V FRONTAL/LAT Radiology Routine Malignant neoplasm of lower-inner quadrant of right breast of female, estrogen receptor positive (HCC) Orthopnea 01/04/2024 11:24 AM EDT [facility] Immunizations Immunization Date Immunization Notes Care Provider Fa cility 06-14-2024 influenza, high dose seasonal, preservative-free Treatment Wstr Work Phone: [facility] 06-14-2024 influenza virus vaccine, unspecified formulation Nallely Aguilera [facility] 03-30-2023 Moderna COVID-19 vaccine, 12 years and older (50mcg/0.5mL)(Spikevax ) Isac Billingsley MD Work Phone: [facility] Work Phone: 03-25-2022 Moderna COVID-19 vaccine, bivalent, blue cap/st label *Check age/dose* Isac Billingsley MD Work Phone: [facility] Work Phone: 09-19-2020 COVID-19 vaccine, fu ll dose (MODERNA) Pet 2 [facility] 08-20-2020 COVID-19 vaccine, fu ll dose (MODERNA) Pet 2 [facility] Payers Date Payer Category Payer Self-pay [id number] 2022 Medicare supplementa l policy (as second payer) [employer] [id number] [facility] [id number] 2022-Present [address] [place] [address] [id number] 2021 Private Health Insurance [id number] 2021 Unknown [id number] 2019 Medicare MEDICARE MEDICAR E A AND B [id number] 2019-Present [phone] [address] [address] [place] [address] Medicare [id number] 2019 Medicare [id number] 2019 Private Health Insurance xxx [id number] 2019 Medicare [id number] 2015 Unknown [facility] TIMOTHY [id number] 1953 Unknown [id number] Unknown [id number] Unknown [id number] Unknown [id number] Unknown [id number] Unknown [id number] Unknown [id number] Unknown [id number] Unknown [id number] Social History Date Type Detail Facility Start: 02-20-2016 End: 02-03-2023 Tobacco smoking status NHIS Never smoked tobacco [facility] Start: 02-20-2016 End: 02-03-2023 Tobacco use and exposure Smokeless tobacco non-user [facility] Start: 08-12-2021 End: 11-21-2024 Alcohol intake Current non-drinker of alcohol (finding) [facility] Start: 06-11-2019 History SDOH Social Connections Phone 5 [facility] Start: 06-11-2019 History SDOH Social Connections Get Together 2 [facility] Start: 06-11-2019 History SDOH Social Connections Anabaptism 1 [facility] Start: 06-11-2019 History SDOH Social Connections Living 3 [facility] Start: 06-11-2019 History SDOH Stress 4 [facility] Start: 1955 Sex Assigned At Female [facility] Start: 08-15-2021 End: 2024 Exposure to SARS-CoV-2 (event) Not sure [facility] Start: 09-15-2021 End: 08-16-2023 Tobacco smoking status NHIS Unknown if ever smoked [facility] Start: 05-01-2019 Non-smoker [facility] Start: 06-11-2019 End: 10-18-2022 History of Social function [facility] Start: 06-11-2019 End: 10-18-2022 Social connection and isolation panel [facility] Do you belong to any clubs or organizations such as mandaeism groups, unions, fraternal or athletic groups, or school groups? No [facility] Are you now , , , , never or living with a partner? [facility] How hard is it for y ou to pay for the very basics like food, housing, medical care, and heating Not hard at all [facility] Do you feel stress - tense, restless, nervous, or anxious, or unable to sleep at night because your mind is troubled all the time - these days [OSQ] Rather much [facility] (I/We) worried wheth er (my/our) food would run out before (I/we) got money to buy more. Never true [facility] Start: 02-17-2021 Gender identity Identifies as female gender (finding) [facility] Start: 02-17-2021 Sexual orientation Heterosexual (finding) [facility] Start: 06-16-2023 End: 2024 Alcohol intake Ex-drinker (finding) [facility] Work Phone: Start: 1955 Sex Assigned At Not on file [facility] Work Phone: Start: 09-19-2024 Sex Female (finding) [facility] Medical Equipment Procedure Code Equipment Code Equipment Origin al Text Equipment Identifier Dates Insertion, vascular access port PORT,POWER 8FR FDA Start: 05-07-2019 Insertion, vascular access port PORT,POWER 8FR FDA Start: 05-07-2019 Insertion, vascular access port PORT,POWER 8FR FDA Start: 05-07-2019 Insertion, vascular access port PORT,POWER 8FR FDA Start: 05-07-2019 Insertion, vascular access port PORT,POWER 8FR FDA Start: 05-07-2019 Insertion, vascular access port PORT,POWER 8FR FDA Start: 05-07-2019 Insertion, vascular access port PORT,POWER 8FR FDA Start: 05-07-2019 Insertion, vascular access port PORT,POWER 8FR FDA Start: 05-07-2019 Insertion, vascular access port PORT,POWER 8FR FDA Start: 05-07-2019 Insertion, vascular access port PORT,POWER 8FR FDA Start: 05-07-2019 Port Powerport M ri 8fr Plastic Polyurethane Implantable Infusion - [id number] Start: 03-25-2016 SANTO 3GRM HEMO STAT ABS FDA Start: 04-02-2019 SANTO 3GRM HEMO STAT ABS FDA Start: 04-02-2019 SANTO 3GRM HEMO STAT ABS FDA Start: 04-02-2019 SANTO 3GRM HEMO STAT ABS FDA Start: 04-02-2019 SANTO 3GRM HEMO STAT ABS FDA Start: 04-02-2019 SANTO 3GRM HEMO STAT ABS FDA Start: 04-02-2019 SANTO 3GRM HEMO STAT ABS FDA Start: 04-02-2019 SANTO 3GRM HEMO STAT ABS FDA Start: 04-02-2019 SANTO 3GRM HEMO STAT ABS FDA Start: 04-02-2019 SANTO 3GRM HEMO STAT ABS FDA Start: 04-02-2019 SANTO 3GRM HEMO STAT ABS FDA Start: 04-02-2019 SANTO 3GRM HEMO STAT ABS FDA Start: 04-02-2019 SANTO 3GRM HEMO STAT ABS FDA Start: 04-02-2019 SANTO 3GRM HEMO STAT ABS FDA Start: 04-02-2019 SANTO 3GRM HEMO STAT ABS FDA Start: 04-02-2019 SANTO 3GRM HEMO STAT ABS FDA Start: 04-02-2019 SANTO 3GRM HEMO STAT ABS FDA Start: 04-02-2019 SANTO 3GRM HEMO STAT ABS FDA Start: 04-02-2019 SANTO 3GRM HEMO STAT ABS FDA Start: 04-02-2019 SANTO 3GRM HEMO STAT ABS FDA Start: 04-02-2019 Functional Status Date Assessment Result Facility 2024 [facility] ionnaire 2 item (PHQ-2) [Reported] [facility] Work Phone: 02-17-2023 Functional status Ambulates [facility] Work Phone: [facility] Work Phone: Mental Status Date Assessment Result Facility 02-17-2023 Cognitive function Voice/Name [facility] Work Phone: Clinical Notes 08-25-2021 to 12-12-2024 Caity Cote APRN.TERRITORY DEVELOPMENT MANAGER - 12/12/2024 8:13 AM Nicolle Butts RN - 12/12/2024 7:00 AM Caity Morales APRN.TERRITORY DEVELOPMENT MANAGER - 11/21/2024 9:29 AM Mae Shipley - 11/15/2024 1:15 PM EDT Note Date & Type Note Facility 12-12-2024 History of Presen t illness Narrative Chief Complaint Patient presents with: Established Patient HPI: Renate Christiansen is a 69 year old female who presents here today for evaluation for treatment tomorrow. Per Dr. Rivers's previous note: H/o discovered a lump on the lower inner portion of her right breast in the fall of 2015. She was seen at [facility] and underwent a right sided core biopsy on 02/16/2016 by interventional radiology. The tissue specimen demonstrated invasive ductal carcinoma, Yohan grade 2. ER positive (90%, very weak) and WV negative (0%). HER-2 was quantified at 3+. [...] 3) Nerlyx-stopped d/t diarrhea. Last dose of neratinib . I'm never taking that again. Seen here in early March for complaint of right breast fullness and tenderness. Diagnostic mammogram done on 03/07/2019 did not demonstrate a mass within the breast however on ultrasound there was a 0.8 cm x 0.6 cm x 0.9 cm lobulated mass with an indistinct margin in the right breast at 1:00 anterior depth 6 cm in the nipple. It was lobulated and hypoechoic with internal echoes. This corresponded to the tender area. There was also a 1.2 x 0.9 x 2 cm lobulated mass with a circumscribed margin in the right breast at 2:00 anterior depth 7 cm from the nipple. It also was hypoechoic with internal echoes. And it also was tender on exam. Patient next underwent ultrasound-guided right breast needle core biopsy 2 on 03/22/2019. Pathology: MICROSCOPIC DIAGNOSIS A. Right breast at 1 o clock, core biopsy: Invasive ductal carcinoma with the following characteristics: Maximal length - 10 mm Nuclear grade - 3/3 Other findings - ductal carcinoma in situ, nuclear 3/3 with focal comedo necrosis. B. Right breast at 2 o clock, core biopsy: Invasive ductal carcinoma with the following characteristics: Maximal length - 1.2 mm Nuclear grade - 2-3/3 ANTIBODY / CLONE RESULT Block A P53 (DO-7) positive, >90% Ki-67 (30-9) positive, 12% CK8 (62ajouP29) positive CK5-6 (D5 & 1684) negative Calponin-1 (QW831T) negative P40 (BC28) negative E-Cad (ECH-6) positive MORPHOMETRIC ANALYSIS ER (clone 6F11) 15%, weak intensity WV (clone 16/1E2) 0% Her-2Neu (clone CB11) 3+ Block B Calponin-1 (ZA228V) negative P40 (BC28) negative CK8 (95eaumJ08) positive INTERPRETATION: A. Right breast 1 o clock, biopsy: Invasive ductal carcinoma, grade 3/3. Positive for estrogen receptors (favorable prognostic indicator). Negative for progesterone receptors (unfavorable prognostic indicator). Positive for overexpression of ZEL4vol. B. Right breast 2 o clock, biopsy: Invasive ductal carcinoma, grade 2-3/3. Then underwent right breast modified mastectomy along with axillary lymph node dissection on 04/02/2019. Pathology: MICROSCOPIC DIAGNOSIS Right breast, modified radical mastectomy: Invasive ductal carcinoma x2. Ductal carcinoma in situ. Five out of five lymph nodes, negative for metastatic carcinoma. Hyalinized fibroadenomas x2. See cancer summary below. SJ:breann 04/05/19 INVASIVE BREAST CANCER SUMMARY: Specimen - total breast (including nipple and skin). Procedure - total mastectomy (including nipple and skin). Lymph node sampling - axillary dissection Specimen integrity - single, intact specimen Specimen laterality - right Tumor site - inner quadrant Tumor size: size of largest invasive carcinoma - 3.5 x 1.5 x 1.5 cm Tumor focality - two foci of invasive carcinoma Size of individual foci - 3.5 x 1.5 x 1.5 cm and 2 x 2 x 1 cm Macroscopic and Microscopic extent of tumor: Skin - invasive carcinoma does not invade into the dermis or epidermis. Nipple - DCIS does not involve nipple epidermis. Skeletal muscle - Skeletal muscle is present and is free of carcinoma. Ductal carcinoma in situ (DCIS) - present Extensive intraductal component (EIC) - negative Estimated size (extent) of DCIS - DCIS is present in the area of invasive carcinoma and comprise about 5% of the total tumor volume. Number of blocks with DCIS - 7 Number of blocks examined (breast tissue) - 16 Architectural patterns - cribriform and comedo Nuclear grade - grade 3 (high) Necrosis - present, central (expansive comedo necrosis) Lobular carcinoma in situ (LCIS) - not identified Histologic type of invasive carcinoma - invasive ductal carcinoma (no special type) Histologic Grade (Yohan grade): Glandular/tubular differentiation - score 3 Nuclear pleomorphism - score 3 Mitotic count - score 2 Overall grade - 3 (score of 8) Both tumor show similar morphologic features. Margins - larger focus of invasive carcinoma is present at the closest posterior margin of the specimen. - smaller focus of invasive carcinoma is 1.7 cm away from closest superior margin. - Margins are free of ductal carcinoma in situ. Treatment effect: Response to presurgical (neoadjuvant) therapy - no known presurgical therapy. Lymph-Vascular invasion - not identified Dermal lymph-vascular invasion - not identified Lymph nodes: Number of sentinel lymph nodes examined - 0 Total number of lymph nodes examined (sentinel and nonsentinel) - 5 Number of lymph nodes with macrometastases, micrometastases and isolated tumor cells - 0 Distant metastasis - not applicable Additional pathologic findings - hyalinized fibroadenomas x2 with focal calcifications. See comment. - Dense fibrosis and lobular involution. Ancillary studies - previously performed on section of tumor ([id number] / [id number]). ER - positive (15%, weak intensity) WV - negative (0%) Her2 krista - positive (3+) Microcalcifications - present in both invasive carcinoma and non-neoplastic tissue. Clinical history - Please make reference to previous specimen ([id number]) right breast at 1 o clock and right breast at 2 o clock core biopsies with diagnosis of invasive ductal carcinoma. PATHOLOGIC STAGE: pT2(m) pN0 Mx Evidently the larger focus of cancer was down to the chest wall muscle. Other significant past medical history was asymptomatic decline in ejection fraction 1 receiving Herceptin. Serial echocardiograms--March 2016 at that time he demonstrated ejection fraction of 72%. Another echocardiogram in September 2016 demonstrated ejection fraction of 55%. In November 2016 was 50% and in May 2017 was 45% with mild global hypokinesis. managed with beta-ruth and ARB. Most recent echocardiogram from May 2018 revealed normal left ventricular size with systolic function at lower limits of normal estimated at 53%. The global longitudinal strain was -19.4% (normal) cis. Stage I diastolic dysfunction was observed. Pulmonary artery pressure was 27 mmHg. ---- Had staging CTs scans that suggested lung metastases. Not able to biopsy. Previous therapy: 1) Taxotere/Herceptin/Perjeta. 2) Herceptin/Perjeta. Discontinued 01/2021 for progressive disease. 3) Kadcyla. 02/2021 through 07/2021. Discontinued secondary to significant worsening of neuropathy. 4) SBRT DYLAN metastasis completed 03/02/2023. 5) Enhertu. 6) RT right lung 09/30/2023. Current therapy: 1) Capecitabine, tukatinib and trastuzumab. Pt. here today with spouse. No new concerns today. Appetite:Too good. Wt. stable. Energy level:Good. Denies fevers. Mouth:denies sores Resp:denies cough or sob Cardiac:denies chest pain/palpitations/leg swelling GI:denies abd pain, n/v, +diarrhea daily-takes imodium prn :denies dysuria/hematuria Extrem:denies new pain Endo:denies hot flashes Neuro:+neuropathy stable Skin:denies rashes, no HFS Heme:denies bleeding The ROS is otherwise negative. Past medical history, appointments, medications, allergies reviewed. No changes. EXAM: BP 130/77 Pulse 62 Temp 36.3 C (97.4 F) SpO2 93% APPEARANCE Well appearing, alert, in no acute distress, well-hydrated, well nourished. MOUTH no mucositis/thrush HEART RRR with normal S1 and S2, no murmurs LUNG clear to auscultation LYMPH NODES No cervical lymphadenopathy, No supraclavicular lymphadenopathy, and No axillary lymphadenopathy. ABDOMEN bowel sounds normoactive, soft, non-tender EXTREMITIES No edema NEURO Awake, alert and oriented x 3, Normal gait, and No involuntary motions. SKIN Skin color, texture, turgor normal, no suspicious rashes or lesions LABS: Latest Ref Rng 10/31/2024 11/21/2024 12/12/2024 WBC 3.70 - 11.00 k/uL 3.74 4.65 5.01 RBC 3.90 - 5.20 m/uL 3.27 (L) 3.21 (L) 3.06 (L) Hemoglobin 11.5 - 15.5 g/dL 12.1 11.9 11.6 Hematocrit 36.0 - 46.0 % 35.3 (L) 35.4 (L) 33.4 (L) MCV 80.0 - 100.0 fL 108.0 (H) 110.3 (H) 109.2 (H) MCH 26.0 - 34.0 pg 37.0 (H) 37.1 (H) 37.9 (H) MCHC 30.5 - 36.0 g/dL 34.3 33.6 34.7 RDW-CV 11.5 - 15.0 % 17.8 (H) 18.4 (H) 17.7 (H) Platelet Count 150 - 400 k/uL 139 (L) 174 146 (L) MPV 9.0 - 12.7 fL 9.7 9.6 9.5 Neut% % 60.9 58.8 62.0 Abs Neut (ANC) 1.45 - 7.50 k/uL 2.28 2.73 3.11 Lymph% % 23.0 23.2 20.6 Abs Lymph 1.00 - 4.00 k/uL 0.86 (L) 1.08 1.03 Cotton% % 10.7 11.8 12.4 Abs Cotton <0.87 k/uL 0.40 0.55 0.62 Eosin% % 4.8 5.4 4.6 Abs Eosin <0.46 k/uL 0.18 0.25 0.23 Baso% % 0.3 0.4 0.4 Abs Baso <0.11 k/uL <0.03 <0.03 <0.03 Immature Gran % % 0.3 0.4 0.0 IMMATURE GRANS (ABS) <0.10 k/uL <0.03 <0.03 <0.03 NRBC /100 WBC 0.0 0.0 0.0 Absolute nRBC <0.01 k/uL <0.01 <0.01 <0.01 DTYPE Auto Auto Auto CMP: Pending ASSESSMENT/PLAN: 1. Malignant neoplasm of lower-inner quadrant of right breast of female, estrogen receptor positive (HCC) - ICD9: 174.3, V86.0, ICD10: C50.311, Z17.0 (primary diagnosis) 2. HER2-positive carcinoma of breast (HCC) - ICD9: 174.9, ICD10: C50.919, Z17.31 3. Malignant neoplasm metastatic to bone (HCC) - ICD9: 198.5, ICD10: C79.51 4. Malignant neoplasm metastatic to both lungs (HCC) - ICD9: 197.0, ICD10: C78.01, C78.[address] Rivers's previous note: Assessment: -Originally pT2 pN0(sln) MX ER positive (9%, very weak) WV negative HER overexpressed stage IIA invasive ductal carcinoma the right breast. -Recurrent pT2(m) pN0 (none of 5 LNs) MX ER +(15%, weak intensity)/WV negative (0%) HER2 3+ invasive ductal carcinoma the right breast while on AI (anastrozole). -Tolerating capecitabine at dose reduction better. -Discussed due for imaging. Plan: -Okay for Herceptin tomorrow. -Continue capecitabine . -Continue tucatinib. -Continue metoprolol to 25 mg BID. -Zometa every 3 months. -CTs -Echo in about 3 months. -Continue follow-up with Dr. Galeano. (G62.0, T45.1X5A) Chemotherapy-induced neuropathy (HCC) Assessment: -No subjective change. -Symptoms remain well controlled with Lyrica. Plan: -Continue Lyrica 150 mg twice daily. (L27.0) Drug rash Assessment: -Resolved currently Plan: -Continue Kenalog 0.1% cream prn if has recurrence. -Continue moisturizer. (Z86.39) History of thyroid nodule Stable on US fall 2022 and recent PET 08/2023. -Due for follow up US. - Xeloda/tukysa were on hold d/t viral illness beginning 09/26/24. Resumed treatment 10/11/24. Tolerating well overall except for occ. diarrhea-takes imodium with relief. - Tolerated herceptin/Xeloda/tukysa well previously-prior to viral illness. Tolerating overall well now-taking imodium prn for diarrhea. - Reviewed CBC with pt. and spouse. - CMP pending. - ECHO done in September at [facility]. Next due this month. - Continue zometa every 3 months. - Start xeloda/tukysa tomorrow. - ECHO due this month at [facility]. - CT's after this cycle. - Proceed as scheduled tomorrow for herceptin pending labs. - Follow up as scheduled. - Pt. aware to call office with any questions/concerns. The patient indicates understanding of these issues and agrees with the plan. All documentation from previous visit of 11/21/24-Dr. Rivers's/myself was copied and pasted, documentation has been reviewed and edited as necessary for today's visit. Caity Cote APRN.TERRITORY DEVELOPMENT MANAGER documented in this encounter [facility] 12-12-2024 History of Presen t illness Narrative Patient is here for IVAD port flush/blood draw per [facility] [place] protocol. IVAD is located in left upper chest. Site cleansed with Chloraprep IVAD accessed with a #20 gauge 3/4 non-coring Gripper needle Flush with 5cc's Normal Saline. Blood Return: Good. 10 cc's blood aspirated and discarded. Blood drawn for CBC and CMP. Flushed with: 20 ml Normal Saline. Non-coring needle removed. Paper tape applied to puncture site. Site negative for redness, edema or tenderness. Patient tolerated procedure well. documented in this encounter [facility] 11-21-2024 History of Presen t illness Narrative Chief Complaint Patient presents with: Established Patient HPI: Renate Christiansen is a 69 year old female who presents here today for evaluation for treatment tomorrow. Per Dr. Rivers's previous note: H/o discovered a lump on the lower inner portion of her right breast in the fall of 2015. She was seen at [facility] and underwent a right sided core biopsy on 02/16/2016 by interventional radiology. The tissue specimen demonstrated invasive ductal carcinoma, Yohan grade 2. ER positive (90%, very weak) and WV negative (0%). HER-2 was quantified at 3+. [...] 3) Nerlyx-stopped d/t diarrhea. Last dose of neratinib . I'm never taking that again. Seen here in early March for complaint of right breast fullness and tenderness. Diagnostic mammogram done on 03/07/2019 did not demonstrate a mass within the breast however on ultrasound there was a 0.8 cm x 0.6 cm x 0.9 cm lobulated mass with an indistinct margin in the right breast at 1:00 anterior depth 6 cm in the nipple. It was lobulated and hypoechoic with internal echoes. This corresponded to the tender area. There was also a 1.2 x 0.9 x 2 cm lobulated mass with a circumscribed margin in the right breast at 2:00 anterior depth 7 cm from the nipple. It also was hypoechoic with internal echoes. And it also was tender on exam. Patient next underwent ultrasound-guided right breast needle core biopsy 2 on 03/22/2019. Pathology: MICROSCOPIC DIAGNOSIS A. Right breast at 1 o clock, core biopsy: Invasive ductal carcinoma with the following characteristics: Maximal length - 10 mm Nuclear grade - 3/3 Other findings - ductal carcinoma in situ, nuclear 3/3 with focal comedo necrosis. B. Right breast at 2 o clock, core biopsy: Invasive ductal carcinoma with the following characteristics: Maximal length - 1.2 mm Nuclear grade - 2-3/3 ANTIBODY / CLONE RESULT Block A P53 (DO-7) positive, >90% Ki-67 (30-9) positive, 12% CK8 (20piboF77) positive CK5-6 (D5 & 1684) negative Calponin-1 (CB730S) negative P40 (BC28) negative E-Cad (ECH-6) positive MORPHOMETRIC ANALYSIS ER (clone 6F11) 15%, weak intensity WV (clone 16/1E2) 0% Her-2Neu (clone CB11) 3+ Block B Calponin-1 (PI020G) negative P40 (BC28) negative CK8 (65pqohP38) positive INTERPRETATION: A. Right breast 1 o clock, biopsy: Invasive ductal carcinoma, grade 3/3. Positive for estrogen receptors (favorable prognostic indicator). Negative for progesterone receptors (unfavorable prognostic indicator). Positive for overexpression of HGO4isn. B. Right breast 2 o clock, biopsy: Invasive ductal carcinoma, grade 2-3/3. Then underwent right breast modified mastectomy along with axillary lymph node dissection on 04/02/2019. Pathology: MICROSCOPIC DIAGNOSIS Right breast, modified radical mastectomy: Invasive ductal carcinoma x2. Ductal carcinoma in situ. Five out of five lymph nodes, negative for metastatic carcinoma. Hyalinized fibroadenomas x2. See cancer summary below. SJ:breann 04/05/19 INVASIVE BREAST CANCER SUMMARY: Specimen - total breast (including nipple and skin). Procedure - total mastectomy (including nipple and skin). Lymph node sampling - axillary dissection Specimen integrity - single, intact specimen Specimen laterality - right Tumor site - inner quadrant Tumor size: size of largest invasive carcinoma - 3.5 x 1.5 x 1.5 cm Tumor focality - two foci of invasive carcinoma Size of individual foci - 3.5 x 1.5 x 1.5 cm and 2 x 2 x 1 cm Macroscopic and Microscopic extent of tumor: Skin - invasive carcinoma does not invade into the dermis or epidermis. Nipple - DCIS does not involve nipple epidermis. Skeletal muscle - Skeletal muscle is present and is free of carcinoma. Ductal carcinoma in situ (DCIS) - present Extensive intraductal component (EIC) - negative Estimated size (extent) of DCIS - DCIS is present in the area of invasive carcinoma and comprise about 5% of the total tumor volume. Number of blocks with DCIS - 7 Number of blocks examined (breast tissue) - 16 Architectural patterns - cribriform and comedo Nuclear grade - grade 3 (high) Necrosis - present, central (expansive comedo necrosis) Lobular carcinoma in situ (LCIS) - not identified Histologic type of invasive carcinoma - invasive ductal carcinoma (no special type) Histologic Grade (Yohan grade): Glandular/tubular differentiation - score 3 Nuclear pleomorphism - score 3 Mitotic count - score 2 Overall grade - 3 (score of 8) Both tumor show similar morphologic features. Margins - larger focus of invasive carcinoma is present at the closest posterior margin of the specimen. - smaller focus of invasive carcinoma is 1.7 cm away from closest superior margin. - Margins are free of ductal carcinoma in situ. Treatment effect: Response to presurgical (neoadjuvant) therapy - no known presurgical therapy. Lymph-Vascular invasion - not identified Dermal lymph-vascular invasion - not identified Lymph nodes: Number of sentinel lymph nodes examined - 0 Total number of lymph nodes examined (sentinel and nonsentinel) - 5 Number of lymph nodes with macrometastases, micrometastases and isolated tumor cells - 0 Distant metastasis - not applicable Additional pathologic findings - hyalinized fibroadenomas x2 with focal calcifications. See comment. - Dense fibrosis and lobular involution. Ancillary studies - previously performed on section of tumor ([id number] / [id number]). ER - positive (15%, weak intensity) WV - negative (0%) Her2 krista - positive (3+) Microcalcifications - present in both invasive carcinoma and non-neoplastic tissue. Clinical history - Please make reference to previous specimen ([id number]) right breast at 1 o clock and right breast at 2 o clock core biopsies with diagnosis of invasive ductal carcinoma. PATHOLOGIC STAGE: pT2(m) pN0 Mx Evidently the larger focus of cancer was down to the chest wall muscle. Other significant past medical history was asymptomatic decline in ejection fraction 1 receiving Herceptin. Serial echocardiograms--March 2016 at that time he demonstrated ejection fraction of 72%. Another echocardiogram in September 2016 demonstrated ejection fraction of 55%. In November 2016 was 50% and in May 2017 was 45% with mild global hypokinesis. managed with beta-ruth and ARB. Most recent echocardiogram from May 2018 revealed normal left ventricular size with systolic function at lower limits of normal estimated at 53%. The global longitudinal strain was -19.4% (normal) cis. Stage I diastolic dysfunction was observed. Pulmonary artery pressure was 27 mmHg. ---- Had staging CTs scans that suggested lung metastases. Not able to biopsy. Previous therapy: 1) Taxotere/Herceptin/Perjeta. 2) Herceptin/Perjeta. Discontinued 01/2021 for progressive disease. 3) Kadcyla. 02/2021 through 07/2021. Discontinued secondary to significant worsening of neuropathy. 4) SBRT DYLAN metastasis completed 03/02/2023. 5) Enhertu. 6) RT right lung 09/30/2023. Current therapy: 1) Capecitabine, tukatinib and trastuzumab. Pt. here today with spouse. No new concerns today. Appetite:Too good. Wt. stable. Energy level:Good. Denies fevers. Mouth:denies sores Resp:denies cough or sob Cardiac:denies chest pain/palpitations/leg swelling GI:denies abd pain, n/v, +diarrhea daily-takes imodium prn :denies dysuria/hematuria Extrem:denies new pain Endo:denies hot flashes Neuro:+neuropathy stable Skin:denies rashes, no HFS Heme:denies bleeding The ROS is otherwise negative. Past medical history, appointments, medications, allergies reviewed. No changes. EXAM: BP 123/79 Pulse (!) 58 Temp 36.6 C (97.9 F) Wt 77.6 kg (171 lb) SpO2 95% BMI 31.51 kg/m APPEARANCE Well appearing, alert, in no acute distress, well-hydrated, well nourished. HEART RRR with normal S1 and S2, no murmurs LUNG clear to auscultation LYMPH NODES No cervical lymphadenopathy, No supraclavicular lymphadenopathy, and No axillary lymphadenopathy. ABDOMEN bowel sounds normoactive, soft, non-tender, non-distended, without organomegaly or palpable masses EXTREMITIES No edema NEURO Awake, alert and oriented x 3, Normal gait, and No involuntary motions. SKIN Skin color, texture, turgor normal, no suspicious rashes or lesions LABS: Latest Ref Rng 10/10/2024 10/31/2024 11/21/2024 WBC 3.70 - 11.00 k/uL 5.11 3.74 4.65 RBC 3.90 - 5.20 m/uL 3.13 (L) 3.27 (L) 3.21 (L) Hemoglobin 11.5 - 15.5 g/dL 11.4 (L) 12.1 11.9 Hematocrit 36.0 - 46.0 % 34.3 (L) 35.3 (L) 35.4 (L) MCV 80.0 - 100.0 fL 109.6 (H) 108.0 (H) 110.3 (H) MCH 26.0 - 34.0 pg 36.4 (H) 37.0 (H) 37.1 (H) MCHC 30.5 - 36.0 g/dL 33.2 34.3 33.6 RDW-CV 11.5 - 15.0 % 17.2 (H) 17.8 (H) 18.4 (H) Platelet Count 150 - 400 k/uL 143 (L) 139 (L) 174 MPV 9.0 - 12.7 fL 9.8 9.7 9.6 Neut% % 65.9 60.9 58.8 Abs Neut (ANC) 1.45 - 7.50 k/uL 3.37 2.28 2.73 Lymph% % 20.0 23.0 23.2 Abs Lymph 1.00 - 4.00 k/uL 1.02 0.86 (L) 1.08 Cotton% % 9.8 10.7 11.8 Abs Cotton <0.87 k/uL 0.50 0.40 0.55 Eosin% % 3.5 4.8 5.4 Abs Eosin <0.46 k/uL 0.18 0.18 0.25 Baso% % 0.4 0.3 0.4 Abs Baso <0.11 k/uL <0.03 <0.03 <0.03 Immature Gran % % 0.4 0.3 0.4 IMMATURE GRANS (ABS) <0.10 k/uL <0.03 <0.03 <0.03 NRBC /100 WBC 0.0 0.0 0.0 Absolute nRBC <0.01 k/uL <0.01 <0.01 <0.01 DTYPE Auto Auto Auto Latest Ref Rng 10/10/2024 10/31/2024 11/21/2024 Protein, Total 6.3 - 8.0 g/dL 5.9 (L) 5.9 (L) 5.9 (L) Albumin 3.9 - 4.9 g/dL 3.5 (L) 3.8 (L) 4.0 Calcium 8.5 - 10.2 mg/dL 9.8 9.2 9.8 Bilirubin, Total 0.2 - 1.3 mg/dL 0.6 0.5 0.4 Alkaline Phosphatase 34 - 123 U/L 106 99 105 AST 13 - 35 U/L 29 27 26 ALT 7 - 38 U/L 15 13 14 Glucose 74 - 99 mg/dL 105 (H) 136 (H) 118 (H) BUN 7 - 21 mg/dL 8 10 13 Creatinine 0.58 - 0.96 mg/dL 0.89 1.11 (H) 1.11 (H) Sodium 136 - 144 mmol/L 142 143 140 Potassium 3.7 - 5.1 mmol/L 4.0 3.0 (L) 4.0 Chloride 98 - 107 mmol/L 103 109 (H) 103 CO2 22 - 30 mmol/L 32 (H) 23 26 Anion Gap 8 - 15 mmol/L 7 (L) 11 11 eGFR >=60 mL/min/1.73m 69 53 (L) 53 (L) ASSESSMENT/PLAN: 1. Malignant neoplasm of lower-inner quadrant of right breast of female, estrogen receptor positive (HCC) - ICD9: 174.3, V86.0, ICD10: C50.311, Z17.0 (primary diagnosis) 2. HER2-positive carcinoma of breast (HCC) - ICD9: 174.9, ICD10: C50.919, Z17.31 3. Malignant neoplasm metastatic to bone (HCC) - ICD9: 198.5, ICD10: C79.51 4. Malignant neoplasm metastatic to both lungs (HCC) - ICD9: 197.0, ICD10: C78.01, C78.[address] Rivers's previous note: Assessment: -Originally pT2 pN0(sln) MX ER positive (9%, very weak) WV negative HER overexpressed stage IIA invasive ductal carcinoma the right breast. -Recurrent pT2(m) pN0 (none of 5 LNs) MX ER +(15%, weak intensity)/WV negative (0%) HER2 3+ invasive ductal carcinoma the right breast while on AI (anastrozole). -Tolerating capecitabine at dose reduction better. -Discussed due for imaging. Plan: -Okay for Herceptin tomorrow. -Continue capecitabine . -Continue tucatinib. -Continue metoprolol to 25 mg BID. -Zometa every 3 months. -CTs -Echo in about 3 months. -Continue follow-up with Dr. Galeano. (G62.0, T45.1X5A) Chemotherapy-induced neuropathy (HCC) Assessment: -No subjective change. -Symptoms remain well controlled with Lyrica. Plan: -Continue Lyrica 150 mg twice daily. (L27.0) Drug rash Assessment: -Resolved currently Plan: -Continue Kenalog 0.1% cream prn if has recurrence. -Continue moisturizer. (Z86.39) History of thyroid nodule Stable on US fall 2022 and recent PET 08/2023. -Due for follow up US. - Xeloda/tukysa were on hold d/t viral illness beginning 09/26/24. Resumed treatment 10/11/24. Tolerating well overall except for occ. diarrhea-takes imodium with relief. - Tolerated herceptin/Xeloda/tukysa well previously-prior to viral illness. - Reviewed CBC/CMP with pt. - ECHO done in September at [facility]. Next due in December. - Continue zometa every 3 months. - Start xeloda/tukysa tomorrow. - Proceed as scheduled tomorrow for herceptin pending labs. - Follow up as scheduled. - Pt. aware to call office with any questions/concerns. The patient indicates understanding of these issues and agrees with the plan. All documentation from previous visit of 10/31/24-Dr. Rivers's/myself was copied and pasted, documentation has been reviewed and edited as necessary for today's visit. Caity Cote APRN.ALESSANDRO documented in this encounter [facility] 11-15-2024 History of Presen t illness Narrative [facility] Refill Assessment Medication(s): capecitabine Patient's current medication list and adherence status to current therapy were reviewed by Specialty Pharmacy clinical pharmacist to identify any new drug interactions or non-compliance to therapy. Therapy continues to be appropriate for disease, patient response, and medical condition. Verification of therapeutic benefit and effectiveness with current therapy was completed. Adverse events, barriers in adherence, and side effects were assessed and addressed if applicable. Will proceed with refill with no changes in therapy - patient progressing towards achieving therapeutic goals based on medication-specific laboratory parameters, disease state markers and outcomes. Office/provider notes have been reviewed prior to dispensing the medication. 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 Patient confirmed: Yes Med/dose confirmed: Yes Supplies needed: No supplies needed Missed doses: No Estimated days supply on hand: 0 Next cycle/dose due: 11/22/24 Payment confirmed: Yes Delivery method: FedEx Signature required: Required (, Medicaid, patient preference) Delivery address: [address] [facility] [id number] Delivery date: 11/20/24 Questions or concerns for the pharmacist?: No Did you have any side effects believed to be related to this medication, that resulted in hospitalization?: No Current Outpatient Medications on File Prior to Visit Medication Sig metoprolol tartrate, short acting, (LOPRESSOR) 25 mg tablet Take 1 tablet by mouth twice daily Acetaminophen 500 mg cap Take 2 capsules by mouth as needed. capecitabine (XELODA) 500 mg tablet Take 2 tablets (1000mg) in the morning and 2 tablets (1000mg) in the evening by mouth with food for 14 days then 7 days off. iv contrast (will be provided with radiology test) CT Chest W -Inject, intravenously, once for 1 dose.No IV access, insert saline lock prior to the beginning of sedation, infusion, injection of imaging exam. Discontinue saline lock post exam. If Pt. has a central line or IVAD, may access for administration according to line specific nursing protocol. Once exam is complete flush line and de-access according to line specific nursing protocol in the CT contrast administration guidelines link. iv contrast (will be provided with radiology test) CT ABD/PEL -Inject, intravenously, once for 1 dose.No IV access, insert saline lock prior to the beginning of sedation, infusion, injection of imaging exam. Discontinue saline lock post exam. If Pt. has a central line or IVAD, may access for administration according to line specific nursing protocol. Once exam is complete flush line and de-access according to line specific nursing protocol in the CT contrast administration guidelines link. enteric contrast (will be provided with radiology test) For CT ABD/PEL W IVCON Routine order Administer, As Directed One Time Only, via Oral, Rectal, both Oral and Rectal, Enteric Tube, Stoma or Indwelling Catheter, Enteric Contrast as designated per enteric contrast guidelines pregabalin (LYRICA) 150 mg capsule Take 1 capsule by mouth two times a day for 90 days. tucatinib (TUKYSA) 150 mg tablet Take 1 tablet (150 mg) by mouth two times a day with 1 other tucatinib prescription for 200 mg total. tucatinib (TUKYSA) 50 mg tablet Take 1 tablet (50 mg) by mouth two times a day with 1 other tucatinib prescription for 200 mg total. triamcinolone acetonide (KENALOG) 0.1 % cream Apply to affected area two times a day. (Patient not taking: Reported on 10/03/2024) promethazine (PHENERGAN) 25 mg tablet Take 1 tablet by mouth every 6 hours as needed. FOR NAUSEA loratadine (CLARITIN) 10 mg tablet Take 10 mg by mouth once daily. losartan (COZAAR) 50 mg tablet Take 2 tablets by mouth once daily. ascorbic acid/bioflavonoids (AMRY C ORAL) Take 500 mg by mouth once daily. loperamide HCl (IMODIUM) 2 mg tab Take 2 mg by mouth as needed. multivitamin tablet Take 1 tablet by mouth once daily. diphenhydrAMINE (BENADRYL) 25 mg tablet Take 25 mg by mouth twice daily as needed. No current facility-administered medications on file prior to visit. [facility] CLINICAL ASSESSMENT - HEMATOLOGY ONCOLOGY V7 Date of influenza vaccination reminder: 02/21/2024 Date of most recent vaccination assessment: 02/21/2024 Treatment Plan Information: Diagnosis: metastatic recurrence of ER+. WV-, Her2+ breast cancer Previous treatment(s): - Right sided lumpectomy and right axillary sentinel lymph node dissection - AC followed by paclitaxel/Herceptin - Adjuvant radiation - Nerlynx - Taxotere/Herceptin/Perjeta - Kadcyla - SBRT - Enhertu - RT Tx Plan: Herceptin + Capecitabine + Tukysa Starting Dose/Titration: Capecitabine 1500 mg BID for 14 days on, followed by 7 days off - 750 mg/m2 x 1.88 m2 = 1410 mg -> 1500 mg (dose reduced d/t renal function) - Confirmed with Dr. Rivers Administration: Take with water within 30 minutes after a meal. Swallow tablets whole. Warnings: include but are not limited to bone marrow suppression, cardiotoxicity (more common in pt with hx of coronary artery disease), GI toxicity, eeah-jiw-edrs syndrome (onset ~79 days), hepatotoxicity (onset ~64 days - hyperbilirubinemia) Adverse reactions: include but are not limited to fatigue, rash, N/V/D/C (diarrhea: onset ~34 days, lasting ~ 5 days - risk dehydration), mucositis Emetogenicity: min to low (<30% frequency of emesis) - NCCN Monitoring: - CBC with differential, hepatic function, and renal function should be monitored. - Monitor INR closely if receiving concomitant warfarin. - Monitor for diarrhea, dehydration, hand-foot syndrome, Orantes-Kristofer syndrome, toxic epidermal necrolysis, stomatitis, and cardiotoxicity. - Monitor adherence. Drug-Drug Interactions: none Baseline: - CrCl 47 ml/min using adjusted body weight. 63 ml/min using actual Est. Tx Plan Start Date: No information available Estimated Start Date Info: Per Dr. Rivers's discretion Est. Estimated Treatment Duration: Until disease progression or unacceptable toxicity Mae Wise documented in this encounter [facility] 11-14-2024 Telephone encounter Note Rx was sent on 11/09/2024 Refused this refill Chrissie Elliott LPN [facility] 11-14-2024 Miscellaneous Notes Rx was sent on 11/09/2024 Refused this refill Chrissie Elliott LPN documented in this encounter [facility] 11-09-2024 Telephone encounter Note Prescription Refill Information The patient has been identified by name and date of : Yes Caregiver verified no other encounters exist for this prescription request: Yes Caregiver confirmed with patient/requestor that no other refills are due, in the near future, with this provider at this time: Yes / The last office visit in the department:10/31/2024 Does the patient have a future office visit with this provider/department: Yes Requested Prescriptions Pending Prescriptions Disp Refills metoprolol tartrate, short acting, (LOPRESSOR) 25 mg tablet [Pharmacy Med Name: METOPROLOL TARTRATE 25MG TAB] 180 tablet 0 Sig: Take 1 tablet by mouth twice daily Chrissie Elliott LPN November 09, 2024 7:26 AM [facility] 11-09-2024 Miscellaneous Notes Prescription Refill Information The patient has been identified by name and date of : Yes Caregiver verified no other encounters exist for this prescription request: Yes Caregiver confirmed with patient/requestor that no other refills are due, in the near future, with this provider at this time: Yes / The last office visit in the department:10/31/2024 Does the patient have a future office visit with this provider/department: Yes Requested Prescriptions Pending Prescriptions Disp Refills metoprolol tartrate, short acting, (LOPRESSOR) 25 mg tablet [Pharmacy Med Name: METOPROLOL TARTRATE 25MG TAB] 180 tablet 0 Sig: Take 1 tablet by mouth twice daily Chrissie Elliott LPN November 09, 2024 7:26 AM documented in this encounter [facility] 10-31-2024 History of Presen t illness Narrative Chief Complaint Patient presents with: Recheck HPI: Renate Christiansen is a 69 year old female who presents here today for evaluation for treatment tomorrow. Per Dr. Rivers's previous note: H/o discovered a lump on the lower inner portion of her right breast in the fall of 2015. She was seen at [facility] and underwent a right sided core biopsy on 02/16/2016 by interventional radiology. The tissue specimen demonstrated invasive ductal carcinoma, Yohan grade 2. ER positive (90%, very weak) and WV negative (0%). HER-2 was quantified at 3+. [...] 3) Nerlyx-stopped d/t diarrhea. Last dose of neratinib . I'm never taking that again. Seen here in early March for complaint of right breast fullness and tenderness. Diagnostic mammogram done on 03/07/2019 did not demonstrate a mass within the breast however on ultrasound there was a 0.8 cm x 0.6 cm x 0.9 cm lobulated mass with an indistinct margin in the right breast at 1:00 anterior depth 6 cm in the nipple. It was lobulated and hypoechoic with internal echoes. This corresponded to the tender area. There was also a 1.2 x 0.9 x 2 cm lobulated mass with a circumscribed margin in the right breast at 2:00 anterior depth 7 cm from the nipple. It also was hypoechoic with internal echoes. And it also was tender on exam. Patient next underwent ultrasound-guided right breast needle core biopsy 2 on 03/22/2019. Pathology: MICROSCOPIC DIAGNOSIS A. Right breast at 1 o clock, core biopsy: Invasive ductal carcinoma with the following characteristics: Maximal length - 10 mm Nuclear grade - 3/3 Other findings - ductal carcinoma in situ, nuclear 3/3 with focal comedo necrosis. B. Right breast at 2 o clock, core biopsy: Invasive ductal carcinoma with the following characteristics: Maximal length - 1.2 mm Nuclear grade - 2-3/3 ANTIBODY / CLONE RESULT Block A P53 (DO-7) positive, >90% Ki-67 (30-9) positive, 12% CK8 (84aswhC30) positive CK5-6 (D5 & 1684) negative Calponin-1 (UR327F) negative P40 (BC28) negative E-Cad (ECH-6) positive MORPHOMETRIC ANALYSIS ER (clone 6F11) 15%, weak intensity WV (clone 16/1E2) 0% Her-2Neu (clone CB11) 3+ Block B Calponin-1 (LV140Q) negative P40 (BC28) negative CK8 (15gqmsF91) positive INTERPRETATION: A. Right breast 1 o clock, biopsy: Invasive ductal carcinoma, grade 3/3. Positive for estrogen receptors (favorable prognostic indicator). Negative for progesterone receptors (unfavorable prognostic indicator). Positive for overexpression of ORC9ink. B. Right breast 2 o clock, biopsy: Invasive ductal carcinoma, grade 2-3/3. Then underwent right breast modified mastectomy along with axillary lymph node dissection on 04/02/2019. Pathology: MICROSCOPIC DIAGNOSIS Right breast, modified radical mastectomy: Invasive ductal carcinoma x2. Ductal carcinoma in situ. Five out of five lymph nodes, negative for metastatic carcinoma. Hyalinized fibroadenomas x2. See cancer summary below. SJ:breann 04/05/19 INVASIVE BREAST CANCER SUMMARY: Specimen - total breast (including nipple and skin). Procedure - total mastectomy (including nipple and skin). Lymph node sampling - axillary dissection Specimen integrity - single, intact specimen Specimen laterality - right Tumor site - inner quadrant Tumor size: size of largest invasive carcinoma - 3.5 x 1.5 x 1.5 cm Tumor focality - two foci of invasive carcinoma Size of individual foci - 3.5 x 1.5 x 1.5 cm and 2 x 2 x 1 cm Macroscopic and Microscopic extent of tumor: Skin - invasive carcinoma does not invade into the dermis or epidermis. Nipple - DCIS does not involve nipple epidermis. Skeletal muscle - Skeletal muscle is present and is free of carcinoma. Ductal carcinoma in situ (DCIS) - present Extensive intraductal component (EIC) - negative Estimated size (extent) of DCIS - DCIS is present in the area of invasive carcinoma and comprise about 5% of the total tumor volume. Number of blocks with DCIS - 7 Number of blocks examined (breast tissue) - 16 Architectural patterns - cribriform and comedo Nuclear grade - grade 3 (high) Necrosis - present, central (expansive comedo necrosis) Lobular carcinoma in situ (LCIS) - not identified Histologic type of invasive carcinoma - invasive ductal carcinoma (no special type) Histologic Grade (Yohan grade): Glandular/tubular differentiation - score 3 Nuclear pleomorphism - score 3 Mitotic count - score 2 Overall grade - 3 (score of 8) Both tumor show similar morphologic features. Margins - larger focus of invasive carcinoma is present at the closest posterior margin of the specimen. - smaller focus of invasive carcinoma is 1.7 cm away from closest superior margin. - Margins are free of ductal carcinoma in situ. Treatment effect: Response to presurgical (neoadjuvant) therapy - no known presurgical therapy. Lymph-Vascular invasion - not identified Dermal lymph-vascular invasion - not identified Lymph nodes: Number of sentinel lymph nodes examined - 0 Total number of lymph nodes examined (sentinel and nonsentinel) - 5 Number of lymph nodes with macrometastases, micrometastases and isolated tumor cells - 0 Distant metastasis - not applicable Additional pathologic findings - hyalinized fibroadenomas x2 with focal calcifications. See comment. - Dense fibrosis and lobular involution. Ancillary studies - previously performed on section of tumor ([id number] / [id number]). ER - positive (15%, weak intensity) WV - negative (0%) Her2 krista - positive (3+) Microcalcifications - present in both invasive carcinoma and non-neoplastic tissue. Clinical history - Please make reference to previous specimen ([id number]) right breast at 1 o clock and right breast at 2 o clock core biopsies with diagnosis of invasive ductal carcinoma. PATHOLOGIC STAGE: pT2(m) pN0 Mx Evidently the larger focus of cancer was down to the chest wall muscle. Other significant past medical history was asymptomatic decline in ejection fraction 1 receiving Herceptin. Serial echocardiograms--March 2016 at that time he demonstrated ejection fraction of 72%. Another echocardiogram in September 2016 demonstrated ejection fraction of 55%. In November 2016 was 50% and in May 2017 was 45% with mild global hypokinesis. managed with beta-ruth and ARB. Most recent echocardiogram from May 2018 revealed normal left ventricular size with systolic function at lower limits of normal estimated at 53%. The global longitudinal strain was -19.4% (normal) cis. Stage I diastolic dysfunction was observed. Pulmonary artery pressure was 27 mmHg. ---- Had staging CTs scans that suggested lung metastases. Not able to biopsy. Previous therapy: 1) Taxotere/Herceptin/Perjeta. 2) Herceptin/Perjeta. Discontinued 01/2021 for progressive disease. 3) Kadcyla. 02/2021 through 07/2021. Discontinued secondary to significant worsening of neuropathy. 4) SBRT DYLAN metastasis completed 03/02/2023. 5) Enhertu. 6) RT right lung 09/30/2023. Current therapy: 1) Capecitabine, tukatinib and trastuzumab. Pt. here today with spouse. No new concerns today. Appetite:Ok. Wt. down 2# over past month. Energy level:Actually I'm doing more stuff. I do take a nap in the afternoons. Denies fevers. Mouth:denies sores Resp:denies cough or sob Cardiac:denies chest pain/palpitations/leg swelling GI:denies abd pain, n/v, +diarrhea daily-takes imodium prn :denies dysuria/hematuria Extrem:denies new pain Endo:denies hot flashes Neuro:+neuropathy stable Skin:denies rashes, no HFS Heme:denies bleeding The ROS is otherwise negative. Past medical history, appointments, medications, allergies reviewed. No changes. EXAM: BP 122/68 Pulse (!) 58 Temp 36.9 C (98.4 F) Resp 15 Wt 77 kg (169 lb 12.1 oz) SpO2 97% BMI 31.28 kg/m APPEARANCE Well appearing, alert, in no acute distress, well-hydrated, well nourished. HEART RRR with normal S1 and S2, no murmurs LUNG clear to auscultation LYMPH NODES No cervical lymphadenopathy, No supraclavicular lymphadenopathy, and No axillary lymphadenopathy. ABDOMEN bowel sounds normoactive, soft, non-tender EXTREMITIES No edema NEURO Awake, alert and oriented x 3, using a cane and No involuntary motions. SKIN Skin color, texture, turgor normal, no suspicious rashes or lesions LABS: Latest Ref Rng 10/03/2024 10/10/2024 10/31/2024 WBC 3.70 - 11.00 k/uL 4.71 5.11 3.74 RBC 3.90 - 5.20 m/uL 3.07 (L) 3.13 (L) 3.27 (L) Hemoglobin 11.5 - 15.5 g/dL 11.1 (L) 11.4 (L) 12.1 Hematocrit 36.0 - 46.0 % 33.0 (L) 34.3 (L) 35.3 (L) MCV 80.0 - 100.0 fL 107.5 (H) 109.6 (H) 108.0 (H) MCH 26.0 - 34.0 pg 36.2 (H) 36.4 (H) 37.0 (H) MCHC 30.5 - 36.0 g/dL 33.6 33.2 34.3 RDW-CV 11.5 - 15.0 % 17.2 (H) 17.2 (H) 17.8 (H) Platelet Count 150 - 400 k/uL 173 143 (L) 139 (L) MPV 9.0 - 12.7 fL 9.6 9.8 9.7 Neut% % 67.1 65.9 60.9 Abs Neut (ANC) 1.45 - 7.50 k/uL 3.16 3.37 2.28 Lymph% % 17.4 20.0 23.0 Abs Lymph 1.00 - 4.00 k/uL 0.82 (L) 1.02 0.86 (L) Cotton% % 11.3 9.8 10.7 Abs Cotton <0.87 k/uL 0.53 0.50 0.40 Eosin% % 3.4 3.5 4.8 Abs Eosin <0.46 k/uL 0.16 0.18 0.18 Baso% % 0.4 0.4 0.3 Abs Baso <0.11 k/uL <0.03 <0.03 <0.03 Immature Gran % % 0.4 0.4 0.3 IMMATURE GRANS (ABS) <0.10 k/uL <0.03 <0.03 <0.03 NRBC /100 WBC 0.0 0.0 0.0 Absolute nRBC <0.01 k/uL <0.01 <0.01 <0.01 DTYPE Auto Auto Auto CMP: Pending ASSESSMENT/PLAN: 1. Malignant neoplasm of lower-inner quadrant of right breast of female, estrogen receptor positive (HCC) - ICD9: 174.3, V86.0, ICD10: C50.311, Z17.0 (primary diagnosis) 2. Malignant neoplasm metastatic to bone (HCC) - ICD9: 198.5, ICD10: C79.51 3. Malignant neoplasm metastatic to lung, unspecified laterality (HCC) - ICD9: 197.0, ICD10: C78.[address] Rivers's previous note: Assessment: -Originally pT2 pN0(sln) MX ER positive (9%, very weak) WV negative HER overexpressed stage IIA invasive ductal carcinoma the right breast. -Recurrent pT2(m) pN0 (none of 5 LNs) MX ER +(15%, weak intensity)/WV negative (0%) HER2 3+ invasive ductal carcinoma the right breast while on AI (anastrozole). -Tolerating capecitabine at dose reduction better. -Discussed due for imaging. Plan: -Okay for Herceptin tomorrow. -Continue capecitabine . -Continue tucatinib. -Continue metoprolol to 25 mg BID. -Zometa every 3 months. -CTs -Echo in about 3 months. -Continue follow-up with Dr. Galeano. (G62.0, T45.1X5A) Chemotherapy-induced neuropathy (HCC) Assessment: -No subjective change. -Symptoms remain well controlled with Lyrica. Plan: -Continue Lyrica 150 mg twice daily. (L27.0) Drug rash Assessment: -Resolved currently Plan: -Continue Kenalog 0.1% cream prn if has recurrence. -Continue moisturizer. (Z86.39) History of thyroid nodule Stable on US fall 2022 and recent PET 08/2023. -Due for follow up US. - Xeloda/tukysa were on hold d/t viral illness beginning 09/26/24. Resumed treatment 10/11/24. Tolerating well overall except for occ. diarrhea-takes imodium with relief. - Tolerated herceptin/Xeloda/tukysa well previously-prior to viral illness. - Reviewed CBC with pt. - CMP pending. - ECHO done in September at [facility]. Next due in December. - Continue zometa every 3 months. - Start xeloda/tukysa tomorrow. - Proceed as scheduled tomorrow for herceptin pending labs. - Follow up as scheduled. - Pt. aware to call office with any questions/concerns. The patient indicates understanding of these issues and agrees with the plan. All documentation from previous visit of 10/10/24-Dr. Rivers/myself was copied and pasted, documentation has been reviewed and edited as necessary for today's visit. Caity Cote APRN.TERRITORY DEVELOPMENT MANAGER documented in this encounter [facility] 10-10-2024 History of Presen t illness Narrative Chief Complaint Patient presents with: Established Patient HPI: Renate Christiansen is a 69 year old female who presents here today for evaluation for treatment tomorrow. Per Dr. Rivers's previous note: H/o discovered a lump on the lower inner portion of her right breast in the fall of 2015. She was seen at [facility] and underwent a right sided core biopsy on 02/16/2016 by interventional radiology. The tissue specimen demonstrated invasive ductal carcinoma, Yohan grade 2. ER positive (90%, very weak) and WV negative (0%). HER-2 was quantified at 3+. [...] 3) Nerlyx-stopped d/t diarrhea. Last dose of neratinib . I'm never taking that again. Seen here in early March for complaint of right breast fullness and tenderness. Diagnostic mammogram done on 03/07/2019 did not demonstrate a mass within the breast however on ultrasound there was a 0.8 cm x 0.6 cm x 0.9 cm lobulated mass with an indistinct margin in the right breast at 1:00 anterior depth 6 cm in the nipple. It was lobulated and hypoechoic with internal echoes. This corresponded to the tender area. There was also a 1.2 x 0.9 x 2 cm lobulated mass with a circumscribed margin in the right breast at 2:00 anterior depth 7 cm from the nipple. It also was hypoechoic with internal echoes. And it also was tender on exam. Patient next underwent ultrasound-guided right breast needle core biopsy 2 on 03/22/2019. Pathology: MICROSCOPIC DIAGNOSIS A. Right breast at 1 o clock, core biopsy: Invasive ductal carcinoma with the following characteristics: Maximal length - 10 mm Nuclear grade - 3/3 Other findings - ductal carcinoma in situ, nuclear 3/3 with focal comedo necrosis. B. Right breast at 2 o clock, core biopsy: Invasive ductal carcinoma with the following characteristics: Maximal length - 1.2 mm Nuclear grade - 2-3/3 ANTIBODY / CLONE RESULT Block A P53 (DO-7) positive, >90% Ki-67 (30-9) positive, 12% CK8 ([id number]) positive CK5-6 (D5 & 1684) negative Calponin-1 (EE575Y) negative P40 (BC28) negative E-Cad (ECH-6) positive MORPHOMETRIC ANALYSIS ER (clone 6F11) 15%, weak intensity WV (clone 16/1E2) 0% Her-2Neu (clone CB11) 3+ Block B Calponin-1 (CA336S) negative P40 (BC28) negative CK8 (44sltbH20) positive INTERPRETATION: A. Right breast 1 o clock, biopsy: Invasive ductal carcinoma, grade 3/3. Positive for estrogen receptors (favorable prognostic indicator). Negative for progesterone receptors (unfavorable prognostic indicator). Positive for overexpression of KBO3xpr. B. Right breast 2 o clock, biopsy: Invasive ductal carcinoma, grade 2-3/3. Then underwent right breast modified mastectomy along with axillary lymph node dissection on 04/02/2019. Pathology: MICROSCOPIC DIAGNOSIS Right breast, modified radical mastectomy: Invasive ductal carcinoma x2. Ductal carcinoma in situ. Five out of five lymph nodes, negative for metastatic carcinoma. Hyalinized fibroadenomas x2. See cancer summary below. SJ:breann 04/05/19 INVASIVE BREAST CANCER SUMMARY: Specimen - total breast (including nipple and skin). Procedure - total mastectomy (including nipple and skin). Lymph node sampling - axillary dissection Specimen integrity - single, intact specimen Specimen laterality - right Tumor site - inner quadrant Tumor size: size of largest invasive carcinoma - 3.5 x 1.5 x 1.5 cm Tumor focality - two foci of invasive carcinoma Size of individual foci - 3.5 x 1.5 x 1.5 cm and 2 x 2 x 1 cm Macroscopic and Microscopic extent of tumor: Skin - invasive carcinoma does not invade into the dermis or epidermis. Nipple - DCIS does not involve nipple epidermis. Skeletal muscle - Skeletal muscle is present and is free of carcinoma. Ductal carcinoma in situ (DCIS) - present Extensive intraductal component (EIC) - negative Estimated size (extent) of DCIS - DCIS is present in the area of invasive carcinoma and comprise about 5% of the total tumor volume. Number of blocks with DCIS - 7 Number of blocks examined (breast tissue) - 16 Architectural patterns - cribriform and comedo Nuclear grade - grade 3 (high) Necrosis - present, central (expansive comedo necrosis) Lobular carcinoma in situ (LCIS) - not identified Histologic type of invasive carcinoma - invasive ductal carcinoma (no special type) Histologic Grade (Sorento grade): Glandular/tubular differentiation - score 3 Nuclear pleomorphism - score 3 Mitotic count - score 2 Overall grade - 3 (score of 8) Both tumor show similar morphologic features. Margins - larger focus of invasive carcinoma is present at the closest posterior margin of the specimen. - smaller focus of invasive carcinoma is 1.7 cm away from closest superior margin. - Margins are free of ductal carcinoma in situ. Treatment effect: Response to presurgical (neoadjuvant) therapy - no known presurgical therapy. Lymph-Vascular invasion - not identified Dermal lymph-vascular invasion - not identified Lymph nodes: Number of sentinel lymph nodes examined - 0 Total number of lymph nodes examined (sentinel and nonsentinel) - 5 Number of lymph nodes with macrometastases, micrometastases and isolated tumor cells - 0 Distant metastasis - not applicable Additional pathologic findings - hyalinized fibroadenomas x2 with focal calcifications. See comment. - Dense fibrosis and lobular involution. Ancillary studies - previously performed on section of tumor ([id number] / [id number]). ER - positive (15%, weak intensity) WV - negative (0%) Her2 krista - positive (3+) Microcalcifications - present in both invasive carcinoma and non-neoplastic tissue. Clinical history - Please make reference to previous specimen ([id number]) right breast at 1 o clock and right breast at 2 o clock core biopsies with diagnosis of invasive ductal carcinoma. PATHOLOGIC STAGE: pT2(m) pN0 Mx Evidently the larger focus of cancer was down to the chest wall muscle. Other significant past medical history was asymptomatic decline in ejection fraction 1 receiving Herceptin. Serial echocardiograms--March 2016 at that time he demonstrated ejection fraction of 72%. Another echocardiogram in September 2016 demonstrated ejection fraction of 55%. In November 2016 was 50% and in May 2017 was 45% with mild global hypokinesis. managed with beta-ruth and ARB. Most recent echocardiogram from May 2018 revealed normal left ventricular size with systolic function at lower limits of normal estimated at 53%. The global longitudinal strain was -19.4% (normal) cis. Stage I diastolic dysfunction was observed. Pulmonary artery pressure was 27 mmHg. ---- Had staging CTs scans that suggested lung metastases. Not able to biopsy. Previous therapy: 1) Taxotere/Herceptin/Perjeta. 2) Herceptin/Perjeta. Discontinued 01/2021 for progressive disease. 3) Kadcyla. 02/2021 through 07/2021. Discontinued secondary to significant worsening of neuropathy. 4) SBRT DYLAN metastasis completed 03/02/2023. 5) Enhertu. 6) RT right lung 09/30/2023. Current therapy: 1) Capecitabine, tukatinib and trastuzumab. Pt. here today with spouse. She is feeling a lot better. Appetite:Ok. Wt. down 2# over past month. Energy level:Alright. Denies fevers. Recent viral illness-end of September-xeloda/tukysa on hold. Mouth:denies sores Resp:denies cough or sob Cardiac:denies chest pain/palpitations/leg swelling GI:denies abd pain, n/v, +diarrhea not daily-takes imodium prn :denies dysuria/hematuria Extrem:denies new pain Endo:denies hot flashes Neuro:+neuropathy stable Skin:denies rashes, no HFS Heme:denies bleeding The ROS is otherwise negative. Past medical history, appointments, medications, allergies reviewed. No changes. EXAM: BP 129/82 Pulse 77 Temp 36.9 C (98.4 F) (Temporal) Wt 77.9 kg (171 lb 11.8 oz) SpO2 95% BMI 31.64 kg/m APPEARANCE Well appearing, alert, in no acute distress, well-hydrated, well nourished. HEART RRR with normal S1 and S2, no murmurs LUNG clear to auscultation LYMPH NODES No cervical lymphadenopathy, No supraclavicular lymphadenopathy, and No axillary lymphadenopathy. ABDOMEN bowel sounds normoactive, soft, non-tender EXTREMITIES No edema NEURO Awake, alert and oriented x 3, using cane today, and No involuntary motions. SKIN Skin color, texture, turgor normal, no suspicious rashes or lesions LABS: Latest Ref Rng 09/05/2024 10/03/2024 10/10/2024 WBC 3.70 - 11.00 k/uL 3.46 (L) 4.71 5.11 RBC 3.90 - 5.20 m/uL 3.46 (L) 3.07 (L) 3.13 (L) Hemoglobin 11.5 - 15.5 g/dL 12.8 11.1 (L) 11.4 (L) Hematocrit 36.0 - 46.0 % 36.9 33.0 (L) 34.3 (L) MCV 80.0 - 100.0 fL 106.6 (H) 107.5 (H) 109.6 (H) MCH 26.0 - 34.0 pg 37.0 (H) 36.2 (H) 36.4 (H) MCHC 30.5 - 36.0 g/dL 34.7 33.6 33.2 RDW-CV 11.5 - 15.0 % 16.2 (H) 17.2 (H) 17.2 (H) Platelet Count 150 - 400 k/uL 122 (L) 173 143 (L) MPV 9.0 - 12.7 fL 9.4 9.6 9.8 Neut% % 61.0 67.1 65.9 Abs Neut (ANC) 1.45 - 7.50 k/uL 2.11 3.16 3.37 Lymph% % 22.5 17.4 20.0 Abs Lymph 1.00 - 4.00 k/uL 0.78 (L) 0.82 (L) 1.02 Cotton% % 12.4 11.3 9.8 Abs Cotton <0.87 k/uL 0.43 0.53 0.50 Eosin% % 3.5 3.4 3.5 Abs Eosin <0.46 k/uL 0.12 0.16 0.18 Baso% % 0.3 0.4 0.4 Abs Baso <0.11 k/uL <0.03 <0.03 <0.03 Immature Gran % % 0.3 0.4 0.4 IMMATURE GRANS (ABS) <0.10 k/uL <0.03 <0.03 <0.03 NRBC /100 WBC 0.0 0.0 0.0 Absolute nRBC <0.01 k/uL <0.01 <0.01 <0.01 DTYPE Auto Auto Auto Latest Ref Rng 09/05/2024 10/03/2024 10/10/2024 Protein, Total 6.3 - 8.0 g/dL 6.4 5.6 (L) 5.9 (L) Albumin 3.9 - 4.9 g/dL 4.1 3.5 (L) 3.5 (L) Calcium 8.5 - 10.2 mg/dL 10.0 9.5 9.8 Bilirubin, Total 0.2 - 1.3 mg/dL 0.7 0.6 0.6 Alkaline Phosphatase 34 - 123 U/L 126 (H) 95 106 AST 13 - 35 U/L 32 49 (H) 29 ALT 7 - 38 U/L 16 25 15 Glucose 74 - 99 mg/dL 102 (H) 112 (H) 105 (H) BUN 7 - 21 mg/dL 9 18 8 Creatinine 0.58 - 0.96 mg/dL 1.05 (H) 1.33 (H) 0.89 Sodium 136 - 144 mmol/L 141 144 142 Potassium 3.7 - 5.1 mmol/L 3.9 3.5 (L) 4.0 Chloride 98 - 107 mmol/L 105 106 103 CO2 22 - 30 mmol/L 30 28 32 (H) Anion Gap 8 - 15 mmol/L 6 (L) 10 7 (L) eGFR >=60 mL/min/1.73m 57 (L) 43 (L) 69 ASSESSMENT/PLAN: 1. Malignant neoplasm of lower-inner quadrant of right breast of female, estrogen receptor positive (HCC) - ICD9: 174.3, V86.0, ICD10: C50.311, Z17.0 (primary diagnosis) 2. HER2-positive carcinoma of breast (HCC) - ICD9: 174.9, ICD10: C50.919, Z17.31 3. Malignant neoplasm metastatic to bone (HCC) - ICD9: 198.5, ICD10: C79.[address] Rivers's previous note: Assessment: -Originally pT2 pN0(sln) MX ER positive (9%, very weak) WV negative HER overexpressed stage IIA invasive ductal carcinoma the right breast. -Recurrent pT2(m) pN0 (none of 5 LNs) MX ER +(15%, weak intensity)/WV negative (0%) HER2 3+ invasive ductal carcinoma the right breast while on AI (anastrozole). -Tolerating capecitabine at dose reduction better. -Discussed due for imaging. Plan: -Okay for Herceptin tomorrow. -Continue capecitabine . -Continue tucatinib. -Continue metoprolol to 25 mg BID. -Zometa every 3 months. -CTs -Echo in about 3 months. -Continue follow-up with Dr. Galeano. (G62.0, T45.1X5A) Chemotherapy-induced neuropathy (HCC) Assessment: -No subjective change. -Symptoms remain well controlled with Lyrica. Plan: -Continue Lyrica 150 mg twice daily. (L27.0) Drug rash Assessment: -Resolved currently Plan: -Continue Kenalog 0.1% cream prn if has recurrence. -Continue moisturizer. (Z86.39) History of thyroid nodule Stable on US fall 2022 and recent PET 08/2023. -Due for follow up US. - Xeloda/tukysa have been on hold d/t viral illness since 09/26/24. - Tolerating herceptin/Xeloda/tukysa well previously.. - Reviewed CBC/CMP with pt. - ECHO done in September at [facility]. Next due in December. - Continue zometa every 3 months. - Restart xeloda/tukysa tomorrow. - Proceed as scheduled tomorrow for herceptin and zometa. - Follow up as scheduled. - Pt. aware to call office with any questions/concerns. The patient indicates understanding of these issues and agrees with the plan. All documentation from previous visit of 09/05/24-Dr. Rivers/myself was copied and pasted, documentation has been reviewed and edited as necessary for today's visit. Catiy Cote APRN.TERRITORY DEVELOPMENT MANAGER documented in this encounter [facility] 10-03-2024 History of Presen t illness Narrative Chief Complaint Patient presents with: Established Patient HPI: Renate Christiansen is a 68 year old female who presents here today for evaluation for treatment tomorrow. Per Dr. Rivers's previous note: H/o discovered a lump on the lower inner portion of her right breast in the fall of 2015. She was seen at [facility] and underwent a right sided core biopsy on 02/16/2016 by interventional radiology. The tissue specimen demonstrated invasive ductal carcinoma, Yohan grade 2. ER positive (90%, very weak) and WV negative (0%). HER-2 was quantified at 3+. [...] 3) Nerlyx-stopped d/t diarrhea. Last dose of neratinib . I'm never taking that again. Seen here in early March for complaint of right breast fullness and tenderness. Diagnostic mammogram done on 03/07/2019 did not demonstrate a mass within the breast however on ultrasound there was a 0.8 cm x 0.6 cm x 0.9 cm lobulated mass with an indistinct margin in the right breast at 1:00 anterior depth 6 cm in the nipple. It was lobulated and hypoechoic with internal echoes. This corresponded to the tender area. There was also a 1.2 x 0.9 x 2 cm lobulated mass with a circumscribed margin in the right breast at 2:00 anterior depth 7 cm from the nipple. It also was hypoechoic with internal echoes. And it also was tender on exam. Patient next underwent ultrasound-guided right breast needle core biopsy 2 on 03/22/2019. Pathology: MICROSCOPIC DIAGNOSIS A. Right breast at 1 o clock, core biopsy: Invasive ductal carcinoma with the following characteristics: Maximal length - 10 mm Nuclear grade - 3/3 Other findings - ductal carcinoma in situ, nuclear 3/3 with focal comedo necrosis. B. Right breast at 2 o clock, core biopsy: Invasive ductal carcinoma with the following characteristics: Maximal length - 1.2 mm Nuclear grade - 2-3/3 ANTIBODY / CLONE RESULT Block A P53 (DO-7) positive, >90% Ki-67 (30-9) positive, 12% CK8 (50fwxrN04) positive CK5-6 (D5 & 1684) negative Calponin-1 (QP546K) negative P40 (BC28) negative E-Cad (ECH-6) positive MORPHOMETRIC ANALYSIS ER (clone 6F11) 15%, weak intensity WV (clone 16/1E2) 0% Her-2Neu (clone CB11) 3+ Block B Calponin-1 (UK195U) negative P40 (BC28) negative CK8 (43iwcmN36) positive INTERPRETATION: A. Right breast 1 o clock, biopsy: Invasive ductal carcinoma, grade 3/3. Positive for estrogen receptors (favorable prognostic indicator). Negative for progesterone receptors (unfavorable prognostic indicator). Positive for overexpression of QRS6qzp. B. Right breast 2 o clock, biopsy: Invasive ductal carcinoma, grade 2-3/3. Then underwent right breast modified mastectomy along with axillary lymph node dissection on 04/02/2019. Pathology: MICROSCOPIC DIAGNOSIS Right breast, modified radical mastectomy: Invasive ductal carcinoma x2. Ductal carcinoma in situ. Five out of five lymph nodes, negative for metastatic carcinoma. Hyalinized fibroadenomas x2. See cancer summary below. SJ:breann 04/05/19 INVASIVE BREAST CANCER SUMMARY: Specimen - total breast (including nipple and skin). Procedure - total mastectomy (including nipple and skin). Lymph node sampling - axillary dissection Specimen integrity - single, intact specimen Specimen laterality - right Tumor site - inner quadrant Tumor size: size of largest invasive carcinoma - 3.5 x 1.5 x 1.5 cm Tumor focality - two foci of invasive carcinoma Size of individual foci - 3.5 x 1.5 x 1.5 cm and 2 x 2 x 1 cm Macroscopic and Microscopic extent of tumor: Skin - invasive carcinoma does not invade into the dermis or epidermis. Nipple - DCIS does not involve nipple epidermis. Skeletal muscle - Skeletal muscle is present and is free of carcinoma. Ductal carcinoma in situ (DCIS) - present Extensive intraductal component (EIC) - negative Estimated size (extent) of DCIS - DCIS is present in the area of invasive carcinoma and comprise about 5% of the total tumor volume. Number of blocks with DCIS - 7 Number of blocks examined (breast tissue) - 16 Architectural patterns - cribriform and comedo Nuclear grade - grade 3 (high) Necrosis - present, central (expansive comedo necrosis) Lobular carcinoma in situ (LCIS) - not identified Histologic type of invasive carcinoma - invasive ductal carcinoma (no special type) Histologic Grade (Yohan grade): Glandular/tubular differentiation - score 3 Nuclear pleomorphism - score 3 Mitotic count - score 2 Overall grade - 3 (score of 8) Both tumor show similar morphologic features. Margins - larger focus of invasive carcinoma is present at the closest posterior margin of the specimen. - smaller focus of invasive carcinoma is 1.7 cm away from closest superior margin. - Margins are free of ductal carcinoma in situ. Treatment effect: Response to presurgical (neoadjuvant) therapy - no known presurgical therapy. Lymph-Vascular invasion - not identified Dermal lymph-vascular invasion - not identified Lymph nodes: Number of sentinel lymph nodes examined - 0 Total number of lymph nodes examined (sentinel and nonsentinel) - 5 Number of lymph nodes with macrometastases, micrometastases and isolated tumor cells - 0 Distant metastasis - not applicable Additional pathologic findings - hyalinized fibroadenomas x2 with focal calcifications. See comment. - Dense fibrosis and lobular involution. Ancillary studies - previously performed on section of tumor ([id number] / [id number]). ER - positive (15%, weak intensity) WV - negative (0%) Her2 krista - positive (3+) Microcalcifications - present in both invasive carcinoma and non-neoplastic tissue. Clinical history - Please make reference to previous specimen ([id number]) right breast at 1 o clock and right breast at 2 o clock core biopsies with diagnosis of invasive ductal carcinoma. PATHOLOGIC STAGE: pT2(m) pN0 Mx Evidently the larger focus of cancer was down to the chest wall muscle. Other significant past medical history was asymptomatic decline in ejection fraction 1 receiving Herceptin. Serial echocardiograms--March 2016 at that time he demonstrated ejection fraction of 72%. Another echocardiogram in September 2016 demonstrated ejection fraction of 55%. In November 2016 was 50% and in May 2017 was 45% with mild global hypokinesis. managed with beta-ruth and ARB. Most recent echocardiogram from May 2018 revealed normal left ventricular size with systolic function at lower limits of normal estimated at 53%. The global longitudinal strain was -19.4% (normal) cis. Stage I diastolic dysfunction was observed. Pulmonary artery pressure was 27 mmHg. ---- Had staging CTs scans that suggested lung metastases. Not able to biopsy. Previous therapy: 1) Taxotere/Herceptin/Perjeta. 2) Herceptin/Perjeta. Discontinued 01/2021 for progressive disease. 3) Kadcyla. 02/2021 through 07/2021. Discontinued secondary to significant worsening of neuropathy. 4) SBRT DYLAN metastasis completed 03/02/2023. 5) Enhertu. 6) RT right lung 09/30/2023. Current therapy: 1) Capecitabine, tukatinib and trastuzumab. Ms. Christiansen presents today with her spouse. She reports feeling a bit better today but still recovering from ? Viral illness. Started to feel terrible last Tuesday (09/25) AM - around 2 am quickly progressed fever, weakness, cough. Fatigued. Appetite is returning some. Temp has been down since Tuesday 101.8 T Max. She was started on doxy by urgent care provider. Last abx today. Also followed up with PCP. Viral panel was negative. A few falls over the last week due to leg weakness- just now starting to get back on my feet. Deep cough, Chest still feels heavy today but improving. No CP, palpitations. No worsening SOB. BRITO is improving. Diarrhea and fecal incontinence while she was acutely ill. None in a few days. Discussed additional week break to allow her to recover further. Pt in agreement with this plan. The ROS is otherwise negative. Past medical history, appointments, medications, allergies reviewed. No changes. EXAM: BP 133/84 Pulse 74 Temp 37.1 C (98.7 F) (Temporal) Wt 78.2 kg (172 lb 8 oz) SpO2 96% BMI 31.78 kg/m APPEARANCE in no acute distress, well-hydrated, well nourished. Fatigued HEART RRR with normal S1 and S2, no murmurs LUNG clear diminished to auscultation, no wheezes. LYMPH NODES No cervical lymphadenopathy, No supraclavicular lymphadenopathy, and No axillary lymphadenopathy. ABDOMEN bowel sounds normoactive, soft, non-tender EXTREMITIES No edema NEURO Awake, alert and oriented x 3, Normal gait, and No involuntary motions. SKIN Skin color, texture, turgor normal, no suspicious rashes or lesions LABS: ASSESSMENT/PLAN: 1. Malignant neoplasm of lower-inner quadrant of right breast of female, estrogen receptor positive (HCC) - ICD9: 174.3, V86.0, ICD10: C50.311, Z17.0 (primary diagnosis) 2. Malignant neoplasm metastatic to bone (HCC) - ICD9: 198.5, ICD10: C79.51 3. HER2-positive carcinoma of breast (HCC) - ICD9: 174.9, ICD10: C50.919, Z17.31 4. Chemotherapy-induced neuropathy (HCC) - ICD9: 357.6, E933.1, ICD10: G62.0, T45.1X5A Per Dr. Rivers's previous note: Assessment: -Originally pT2 pN0(sln) MX ER positive (9%, very weak) WV negative HER overexpressed stage IIA invasive ductal carcinoma the right breast. -Recurrent pT2(m) pN0 (none of 5 LNs) MX ER +(15%, weak intensity)/WV negative (0%) HER2 3+ invasive ductal carcinoma the right breast while on AI (anastrozole). -Tolerating capecitabine at dose reduction better. -Discussed due for imaging. Plan: -Okay for Herceptin tomorrow. -Continue capecitabine . -Continue tucatinib. -Continue metoprolol to 25 mg BID. -Zometa every 3 months. -CTs -Echo in about 3 months. -Continue follow-up with Dr. Galeano. (G62.0, T45.1X5A) Chemotherapy-induced neuropathy (HCC) Assessment: -No subjective change. -Symptoms remain well controlled with Lyrica. Plan: -Continue Lyrica 150 mg twice daily. (L27.0) Drug rash Assessment: -Resolved currently Plan: -Continue Kenalog 0.1% cream prn if has recurrence. -Continue moisturizer. (Z86.39) History of thyroid nodule Stable on US fall 2022 and recent PET 08/2023. -Due for follow up US. - trying to get lift installed to get in and out of the bathtub and ramp installed outside - Overall tolerating treatment well. - Reviewed Cts with patient, discussed short term follow up of RLL nodule would plan to repeat CT scans 2 months. - ECHO scheduled in October. - Continue zometa every 3 months. - HOLD additional week due to acute illness - xeloda/tukysa/herceptin. - pt in agreement with this plan - Pt. aware to call office with any questions/concerns. Quita Hoff, [employer].TERRITORY DEVELOPMENT MANAGER I spent a total of 30 minutes on the date of the service which included preparing to see the patient, [id number] patient care, completing clinical documentation, obtaining and/or reviewing separately obtained history, and counseling and educating the patient/family/caregiver. Portions of this note including HPI, ROS, impression/plan may have been copied forward as to provide important historical information essential in contributing to medical decision making. Documentation has been reviewed and edited as necessary to support clinical decision making for today's visit and to reflect my own independent evaluation of this patient. documented in this encounter [facility] 2024 Evaluation + Plan note Associated Problem(s): Malignant neoplasm metastatic to both lungs [facility] Work Phone: 2024 Evaluation + Plan note Associated Problem(s): Heart disease [facility] Work Phone: 2024 History of Presen t illness Narrative Subjective Reason for Visit: Renate Christiansen is an 69 y.o. female here for a Medicare Wellness visit. Past Medical, Surgical, and Family History reviewed and updated in chart. Reviewed all medications by prescribing practitioner or clinical pharmacist (such as prescriptions, OTCs, herbal therapies and supplements) and documented in the medical record. HPI Dx cancer age 60 Wants to live until her youngest grandson to graduate Urgent care in [place] Cxr showed atelectasis Last CT chest 2024 no interstitial lung disease Doxy 100 bid for 7 days Sob and severe [place] myalgia and arthralgia difficulty walking Now feeling better Cough is better Fevers are diminishing Less chest congested Met breast cancer and met to lung Chemo was suppose to restart this week On 3 week schedule Mastectomy right Last mammogram due per Dr Damico Colon cancer screening has BE done due to tortuous colon Pt weak and falling use rollator with seat Htn well controlled with meds Cbc ad cmp per [facility] onc Dr Rivers Patient Care Team: Isac Billingsley MD as PCP - General (Family Medicine) Review of Systems Objective Vitals: BP 120/68 Pulse 68 Wt 76.8 kg (169 lb 6.4 oz) SpO2 (!) 88% BMI 32.01 kg/m Physical Exam Vitals reviewed. Constitutional: Appearance: Normal appearance. HENT: Head: Normocephalic and atraumatic. Eyes: Conjunctiva/sclera: Conjunctivae normal. Cardiovascular: Rate and Rhythm: Normal rate and regular rhythm. Pulmonary: Effort: Pulmonary effort is normal. Breath sounds: Normal breath sounds. Musculoskeletal: Cervical back: Neck supple. Skin: General: Skin is warm and dry. Neurological: General: No focal deficit present. Mental Status: She is alert and oriented to person, place, and time. Psychiatric: Mood and Affect: Mood normal. Behavior: Behavior normal. Thought Content: Thought content normal. Judgment: Judgment normal. Assessment & Plan Routine general medical examination at health care facility Orders: 1 Year Follow Up In Primary Care - Wellness Exam; Future Malignant neoplasm metastatic to both lungs Bronchitis testing neg for covid inf a and b and rsv History of right breast cancer Heart disease documented in this encounter [facility] Work Phone: 2024 Miscellaneous Notes Associated Problem(s): Malignant neoplasm metastatic to both lungs Associated Problem(s): Heart disease documented in this encounter [facility] Work Phone: 09-26-2024 Telephone encounter Note Patient was prescribed doxycycline. 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 Per Dr. Rivers, delay cycle by 1 week; she will be short 1 day of pills for her next cycle. PSS- please contact patient today or tomorrow to get appointments rescheduled; labs/OV/treatment. OV can be with an COMMUNICATIONS EDITOR if needed. Thank you. Carla Almonte RN [facility] 09-26-2024 Miscellaneous Notes Patient was prescribed doxycycline. 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 Per Dr. Rivers, delay cycle by 1 week; she will be short 1 day of pills for her next cycle. PSS- please contact patient today or tomorrow to get appointments rescheduled; labs/OV/treatment. OV can be with an COMMUNICATIONS EDITOR if needed. Thank you. Carla Almonte RN Patient called stating provider informed her she may have pneumonia and that an antibiotic has been ordered. Patient wants to be sure it is okay with Dr. Rivers before she picks it up. Patient went to the [facility]. Temperature was 101.4 F. CXR still pending. Influenza was negative. Patient stated she was swabbed for COVID as well but the results won't be back until tomorrow. Carla Almonte RN [place] Care Coordination FOLLOW-UP NOTE Care Coordination Plan: patient informed of Dr. Rivers's response, stated understanding. Carla Almonte RN September 26, 2024 I think it best that she get checked at urgent care. Rip Rivers DO Patient states Covid test came back negative. Care Coordination Triage Note Cancer [place] Situation: Patient reports Fever, cough, congestion, runny nose, headache, urinary frequency. Background: Breast Cancer. Capecitabine, tukatinib and trastuzumab. Patient just started a new cycle of xeloda and tukysa on Tuesday. Patient did not take any medication yesterday or today. Assessment: When did you first notice a fever? Yesterday How high has the fever been? 100.8 F What symptoms prompted you to check your temperature? I felt like I had a fever Do you have a cough, shortness of breath, sore throat, chills? Hacking cough that's deep down in but it won't let loose, nose is runny, I've been sneezing a lot, headache, chills, and is SOB if I breathe through my nose at all. Headache: 9/10, tylenol brings the pain down to 6/10. The pain is in the back of my head. Denies sinus pressure or pain. Any urinary symptoms such as frequency or urgency, pain with urination, blood in urine? Yes, urgency, denies dysuria or hematuria. Started Tuesday. Any diarrhea? No. Patient stated she has been constipated, taking Miralax. Last BM yesterday. Have you taken Tylenol, Ibuprofen (Advil) or other medications to reduce your fever? Tylenol for headache pain. Have you been exposed to others who have been sick recently? Yes, her granddaughter was sick. Recommendations: Per RNCC, patient directed to: Manage at home. Instructions provided. Patient is waiting on her to get back from the store with a covid test. Patient will call us after she takes the test. This nurse advised mucinex. Will discuss with Dr. Rivers. Carla Almonte RN September 26, 2024 9:19 AM Patient called to cancel lab and office visit today, treatment for tomorrow. States she is running fever of 100.8. 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 documented in this encounter [facility] 09-26-2024 Telephone encounter Note Patient called stating provider informed her she may have pneumonia and that an antibiotic has been ordered. Patient wants to be sure it is okay with Dr. Rivers before she picks it up. [facility] Work Phone: 09-26-2024 Telephone encounter Note Patient went to the [facility]. Temperature was 101.4 F. CXR still pending. Influenza was negative. Patient stated she was swabbed for COVID as well but the results won't be back until tomorrow. Carla Almonte RN [facility] 09-26-2024 Telephone encounter Note [facility] Care Coordination FOLLOW-UP NOTE Care Coordination Plan: patient informed of Dr. Rivers's response, stated understanding. Carla Almonte RN September 26, 2024 [facility] 09-26-2024 Telephone encounter Note I think it best that she get checked at urgent care. Rip Rivers DO [facility] 09-26-2024 Telephone encounter Note Patient states Covid test came back negative. T [facility] 09-26-2024 Telephone encounter Note Care Coordination Triage Note Cancer [place] Situation: Patient reports Fever, cough, congestion, runny nose, headache, urinary frequency. Background: Breast Cancer. Capecitabine, tukatinib and trastuzumab. Patient just started a new cycle of xeloda and tukysa on Tuesday. Patient did not take any medication yesterday or today. Assessment: When did you first notice a fever? Yesterday How high has the fever been? 100.8 F What symptoms prompted you to check your temperature? I felt like I had a fever Do you have a cough, shortness of breath, sore throat, chills? Hacking cough that's deep down in but it won't let loose, nose is runny, I've been sneezing a lot, headache, chills, and is SOB if I breathe through my nose at all. Headache: 9/10, tylenol brings the pain down to 6/10. The pain is in the back of my head. Denies sinus pressure or pain. Any urinary symptoms such as frequency or urgency, pain with urination, blood in urine? Yes, urgency, denies dysuria or hematuria. Started Tuesday. Any diarrhea? No. Patient stated she has been constipated, taking Miralax. Last BM yesterday. Have you taken Tylenol, Ibuprofen (Advil) or other medications to reduce your fever? Tylenol for headache pain. Have you been exposed to others who have been sick recently? Yes, her granddaughter was sick. Recommendations: Per RNCC, patient directed to: Manage at home. Instructions provided. Patient is waiting on her to get back from the store with a covid test. Patient will call us after she takes the test. This nurse advised mucinex. Will discuss with Dr. Rivers. Carla Almonte RN September 26, 2024 9:19 AM [facility] 09-26-2024 Telephone encounter Note Patient called to cancel lab and office visit today, treatment for tomorrow. States she is running fever of 100.8. 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 T [facility] 09-17-2024 History of Presen t illness Narrative [facility] Refill Assessment Medication(s): Capecitabine Patient's current medication list and adherence status to current therapy were reviewed by Specialty Pharmacy clinical pharmacist to identify any new drug interactions or non-compliance to therapy. Therapy continues to be appropriate for disease, patient response, and medical condition. Verification of therapeutic benefit and effectiveness with current therapy was completed. Adverse events, barriers in adherence, and side effects were assessed and addressed if applicable. Will proceed with refill with no changes in therapy - patient progressing towards achieving therapeutic goals based on medication-specific laboratory parameters, disease state markers and outcomes. Office/provider notes have been reviewed prior to dispensing the medication. 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 Patient confirmed: Yes Med/dose confirmed: Yes Supplies needed: No supplies needed Missed doses: No Estimated days supply on hand: 0 Next cycle/dose due: 09/24/24 Copay amount: 0 Copay form of payment: Credit card on file Payment confirmed: Yes Signature required: No Delivery address: [address] *deliver to back door* [facility] [id number] Delivery date: 09/19/24 Questions or concerns for the pharmacist?: No (Labs/OV 09/26 - no changes expected) Did you have any side effects believed to be related to this medication, that resulted in hospitalization?: No Current Outpatient Medications on File Prior to Visit Medication Sig iv contrast (will be provided with radiology test) CT Chest W -Inject, intravenously, once for 1 dose.No IV access, insert saline lock prior to the beginning of sedation, infusion, injection of imaging exam. Discontinue saline lock post exam. If Pt. has a central line or IVAD, may access for administration according to line specific nursing protocol. Once exam is complete flush line and de-access according to line specific nursing protocol in the CT contrast administration guidelines link. iv contrast (will be provided with radiology test) CT ABD/PEL -Inject, intravenously, once for 1 dose.No IV access, insert saline lock prior to the beginning of sedation, infusion, injection of imaging exam. Discontinue saline lock post exam. If Pt. has a central line or IVAD, may access for administration according to line specific nursing protocol. Once exam is complete flush line and de-access according to line specific nursing protocol in the CT contrast administration guidelines link. enteric contrast (will be provided with radiology test) For CT ABD/PEL W IVCON Routine order Administer, As Directed One Time Only, via Oral, Rectal, both Oral and Rectal, Enteric Tube, Stoma or Indwelling Catheter, Enteric Contrast as designated per enteric contrast guidelines pregabalin (LYRICA) 150 mg capsule Take 1 capsule by mouth two times a day for 90 days. metoprolol tartrate, short acting, (LOPRESSOR) 25 mg tablet Take 1 tablet by mouth twice daily capecitabine (XELODA) 500 mg tablet Take 2 tablets (1000mg) in the morning and 2 tablets (1000mg) in the evening by mouth with food for 14 days then 7 days off. tucatinib (TUKYSA) 150 mg tablet Take 1 tablet (150 mg) by mouth two times a day with 1 other tucatinib prescription for 200 mg total. tucatinib (TUKYSA) 50 mg tablet Take 1 tablet (50 mg) by mouth two times a day with 1 other tucatinib prescription for 200 mg total. triamcinolone acetonide (KENALOG) 0.1 % cream Apply to affected area two times a day. promethazine (PHENERGAN) 25 mg tablet Take 1 tablet by mouth every 6 hours as needed. FOR NAUSEA loratadine (CLARITIN) 10 mg tablet Take 10 mg by mouth once daily. losartan (COZAAR) 50 mg tablet Take 2 tablets by mouth once daily. ascorbic acid/bioflavonoids (MARY C ORAL) Take 500 mg by mouth once daily. loperamide HCl (IMODIUM) 2 mg tab Take 2 mg by mouth as needed. multivitamin tablet Take 1 tablet by mouth once daily. diphenhydrAMINE (BENADRYL) 25 mg tablet Take 25 mg by mouth twice daily as needed. No current facility-administered medications on file prior to visit. [facility] CLINICAL ASSESSMENT - HEMATOLOGY ONCOLOGY V6: Assessment to use: Refill Date of influenza vaccination reminder: 02/21/2024 Date of most recent vaccination assessment: 02/21/2024 Treatment Plan Information: Diagnosis: metastatic recurrence of ER+. WV-, Her2+ breast cancer Previous treatment(s): - Right sided lumpectomy and right axillary sentinel lymph node dissection - AC followed by paclitaxel/Herceptin - Adjuvant radiation - Nerlynx - Taxotere/Herceptin/Perjeta - Kadcyla - SBRT - Enhertu - RT Tx Plan: Herceptin + Capecitabine + Tukysa Starting Dose/Titration: Capecitabine 1500 mg BID for 14 days on, followed by 7 days off - 750 mg/m2 x 1.88 m2 = 1410 mg -> 1500 mg (dose reduced d/t renal function) - Confirmed with Dr. Rivers Administration: Take with water within 30 minutes after a meal. Swallow tablets whole. Warnings: include but are not limited to bone marrow suppression, cardiotoxicity (more common in pt with hx of coronary artery disease), GI toxicity, szmb-gxs-aykg syndrome (onset ~79 days), hepatotoxicity (onset ~64 days - hyperbilirubinemia) Adverse reactions: include but are not limited to fatigue, rash, N/V/D/C (diarrhea: onset ~34 days, lasting ~ 5 days - risk dehydration), mucositis Emetogenicity: min to low (<30% frequency of emesis) - NCCN Monitoring: - CBC with differential, hepatic function, and renal function should be monitored. - Monitor INR closely if receiving concomitant warfarin. - Monitor for diarrhea, dehydration, hand-foot syndrome, Orantes-Kristofer syndrome, toxic epidermal necrolysis, stomatitis, and cardiotoxicity. - Monitor adherence. Drug-Drug Interactions: none Baseline: - CrCl 47 ml/min using adjusted body weight. 63 ml/min using actual Est. Tx Plan Start Date: No information available Estimated Start Date Info: Per Dr. Rivers's discretion Est. Estimated Treatment Duration: Until disease progression or unacceptable toxicity Kaycee Juares documented in this encounter [facility] 09-05-2024 History of Presen t illness Narrative Chief Complaint Patient presents with: Established Patient HPI: Renate Christiansen is a 68 year old female who presents here today for evaluation for treatment tomorrow. Per Dr. Rivers's previous note: H/o discovered a lump on the lower inner portion of her right breast in the fall of 2015. She was seen at [facility] and underwent a right sided core biopsy on 02/16/2016 by interventional radiology. The tissue specimen demonstrated invasive ductal carcinoma, Sorento grade 2. ER positive (90%, very weak) and WV negative (0%). HER-2 was quantified at 3+. [...] 3) Nerlyx-stopped d/t diarrhea. Last dose of neratinib . I'm never taking that again. Seen here in early March for complaint of right breast fullness and tenderness. Diagnostic mammogram done on 03/07/2019 did not demonstrate a mass within the breast however on ultrasound there was a 0.8 cm x 0.6 cm x 0.9 cm lobulated mass with an indistinct margin in the right breast at 1:00 anterior depth 6 cm in the nipple. It was lobulated and hypoechoic with internal echoes. This corresponded to the tender area. There was also a 1.2 x 0.9 x 2 cm lobulated mass with a circumscribed margin in the right breast at 2:00 anterior depth 7 cm from the nipple. It also was hypoechoic with internal echoes. And it also was tender on exam. Patient next underwent ultrasound-guided right breast needle core biopsy 2 on 03/22/2019. Pathology: MICROSCOPIC DIAGNOSIS A. Right breast at 1 o clock, core biopsy: Invasive ductal carcinoma with the following characteristics: Maximal length - 10 mm Nuclear grade - 3/3 Other findings - ductal carcinoma in situ, nuclear 3/3 with focal comedo necrosis. B. Right breast at 2 o clock, core biopsy: Invasive ductal carcinoma with the following characteristics: Maximal length - 1.2 mm Nuclear grade - 2-3/3 ANTIBODY / CLONE RESULT Block A P53 (DO-7) positive, >90% Ki-67 (30-9) positive, 12% CK8 ([id number]) positive CK5-6 (D5 & 1684) negative Calponin-1 (RS687K) negative P40 (BC28) negative E-Cad (ECH-6) positive MORPHOMETRIC ANALYSIS ER (clone 6F11) 15%, weak intensity WV (clone 16/1E2) 0% Her-2Neu (clone CB11) 3+ Block B Calponin-1 (DW138F) negative P40 (BC28) negative CK8 (99myveM06) positive INTERPRETATION: A. Right breast 1 o clock, biopsy: Invasive ductal carcinoma, grade 3/3. Positive for estrogen receptors (favorable prognostic indicator). Negative for progesterone receptors (unfavorable prognostic indicator). Positive for overexpression of [id number]. B. Right breast 2 o clock, biopsy: Invasive ductal carcinoma, grade 2-3/3. Then underwent right breast modified mastectomy along with axillary lymph node dissection on 04/02/2019. Pathology: MICROSCOPIC DIAGNOSIS Right breast, modified radical mastectomy: Invasive ductal carcinoma x2. Ductal carcinoma in situ. Five out of five lymph nodes, negative for metastatic carcinoma. Hyalinized fibroadenomas x2. See cancer summary below. SJ:breann 04/05/19 INVASIVE BREAST CANCER SUMMARY: Specimen - total breast (including nipple and skin). Procedure - total mastectomy (including nipple and skin). Lymph node sampling - axillary dissection Specimen integrity - single, intact specimen Specimen laterality - right Tumor site - inner quadrant Tumor size: size of largest invasive carcinoma - 3.5 x 1.5 x 1.5 cm Tumor focality - two foci of invasive carcinoma Size of individual foci - 3.5 x 1.5 x 1.5 cm and 2 x 2 x 1 cm Macroscopic and Microscopic extent of tumor: Skin - invasive carcinoma does not invade into the dermis or epidermis. Nipple - DCIS does not involve nipple epidermis. Skeletal muscle - Skeletal muscle is present and is free of carcinoma. Ductal carcinoma in situ (DCIS) - present Extensive intraductal component (EIC) - negative Estimated size (extent) of DCIS - DCIS is present in the area of invasive carcinoma and comprise about 5% of the total tumor volume. Number of blocks with DCIS - 7 Number of blocks examined (breast tissue) - 16 Architectural patterns - cribriform and comedo Nuclear grade - grade 3 (high) Necrosis - present, central (expansive comedo necrosis) Lobular carcinoma in situ (LCIS) - not identified Histologic type of invasive carcinoma - invasive ductal carcinoma (no special type) Histologic Grade (Yohan grade): Glandular/tubular differentiation - score 3 Nuclear pleomorphism - score 3 Mitotic count - score 2 Overall grade - 3 (score of 8) Both tumor show similar morphologic features. Margins - larger focus of invasive carcinoma is present at the closest posterior margin of the specimen. - smaller focus of invasive carcinoma is 1.7 cm away from closest superior margin. - Margins are free of ductal carcinoma in situ. Treatment effect: Response to presurgical (neoadjuvant) therapy - no known presurgical therapy. Lymph-Vascular invasion - not identified Dermal lymph-vascular invasion - not identified Lymph nodes: Number of sentinel lymph nodes examined - 0 Total number of lymph nodes examined (sentinel and nonsentinel) - 5 Number of lymph nodes with macrometastases, micrometastases and isolated tumor cells - 0 Distant metastasis - not applicable Additional pathologic findings - hyalinized fibroadenomas x2 with focal calcifications. See comment. - Dense fibrosis and lobular involution. Ancillary studies - previously performed on section of tumor ([id number] / [id number]). ER - positive (15%, weak intensity) WV - negative (0%) Her2 krista - positive (3+) Microcalcifications - present in both invasive carcinoma and non-neoplastic tissue. Clinical history - Please make reference to previous specimen ([id number]) right breast at 1 o clock and right breast at 2 o clock core biopsies with diagnosis of invasive ductal carcinoma. PATHOLOGIC STAGE: pT2(m) pN0 Mx Evidently the larger focus of cancer was down to the chest wall muscle. Other significant past medical history was asymptomatic decline in ejection fraction 1 receiving Herceptin. Serial echocardiograms--March 2016 at that time he demonstrated ejection fraction of 72%. Another echocardiogram in September 2016 demonstrated ejection fraction of 55%. In November 2016 was 50% and in May 2017 was 45% with mild global hypokinesis. managed with beta-ruth and ARB. Most recent echocardiogram from May 2018 revealed normal left ventricular size with systolic function at lower limits of normal estimated at 53%. The global longitudinal strain was -19.4% (normal) cis. Stage I diastolic dysfunction was observed. Pulmonary artery pressure was 27 mmHg. ---- Had staging CTs scans that suggested lung metastases. Not able to biopsy. Previous therapy: 1) Taxotere/Herceptin/Perjeta. 2) Herceptin/Perjeta. Discontinued 01/2021 for progressive disease. 3) Kadcyla. 02/2021 through 07/2021. Discontinued secondary to significant worsening of neuropathy. 4) SBRT DYLAN metastasis completed 03/02/2023. 5) Enhertu. 6) RT right lung 09/30/2023. Current therapy: 1) Capecitabine, tukatinib and trastuzumab. Pt. started xeloda 2 days ago. Pt. here today with spouse. Appetite:Ok. Energy level:Alright. Denies fevers. Mouth:denies sores Resp:denies cough or sob Cardiac:denies chest pain/palpitations/leg swelling GI:denies abd pain, n/v, +diarrhea not daily-takes imodium prn :denies dysuria/hematuria Extrem:denies new pain Endo:denies hot flashes Neuro:+neuropathy stable Skin:denies rashes, no HFS Heme:denies bleeding The ROS is otherwise negative. Past medical history, appointments, medications, allergies reviewed. No changes. EXAM: BP 146/80 Pulse (!) 54 Temp 36.4 C (97.6 F) (Temporal) Wt 78.5 kg (173 lb) SpO2 96% BMI 31.88 kg/m APPEARANCE Well appearing, alert, in no acute distress, well-hydrated, well nourished. HEART RRR with normal S1 and S2, no murmurs LUNG clear to auscultation LYMPH NODES No cervical lymphadenopathy, No supraclavicular lymphadenopathy, and No axillary lymphadenopathy. ABDOMEN bowel sounds normoactive, soft, non-tender EXTREMITIES No edema NEURO Awake, alert and oriented x 3, Normal gait, and No involuntary motions. SKIN Skin color, texture, turgor normal, no suspicious rashes or lesions LABS: Latest Ref Rng 08/15/2024 08/30/2024 09/05/2024 WBC 3.70 - 11.00 k/uL 3.23 (L) 3.78 3.46 (L) RBC 3.90 - 5.20 m/uL 3.29 (L) 3.29 (L) 3.46 (L) Hemoglobin 11.5 - 15.5 g/dL 12.1 12.1 12.8 Hematocrit 36.0 - 46.0 % 36.3 35.4 (L) 36.9 MCV 80.0 - 100.0 fL 110.3 (H) 107.6 (H) 106.6 (H) MCH 26.0 - 34.0 pg 36.8 (H) 36.8 (H) 37.0 (H) MCHC 30.5 - 36.0 g/dL 33.3 34.2 34.7 RDW-CV 11.5 - 15.0 % 15.0 15.4 (H) 16.2 (H) Platelet Count 150 - 400 k/uL 120 (L) 136 (L) 122 (L) MPV 9.0 - 12.7 fL 9.3 9.3 9.4 Neut% % 54.8 56.5 61.0 Abs Neut (ANC) 1.45 - 7.50 k/uL 1.77 2.14 2.11 Lymph% % 25.7 26.5 22.5 Abs Lymph 1.00 - 4.00 k/uL 0.83 (L) 1.00 0.78 (L) Cotton% % 13.0 12.2 12.4 Abs Cotton <0.87 k/uL 0.42 0.46 0.43 Eosin% % 5.6 4.0 3.5 Abs Eosin <0.46 k/uL 0.18 0.15 0.12 Baso% % 0.6 0.5 0.3 Abs Baso <0.11 k/uL <0.03 <0.03 <0.03 Immature Gran % % 0.3 0.3 0.3 IMMATURE GRANS (ABS) <0.10 k/uL <0.03 <0.03 <0.03 NRBC /100 WBC 0.0 0.0 0.0 Absolute nRBC <0.01 k/uL <0.01 <0.01 <0.01 DTYPE Auto Auto Auto CMP: Pending ASSESSMENT/PLAN: 1. Malignant neoplasm of lower-inner quadrant of right breast of female, estrogen receptor positive (HCC) - ICD9: 174.3, V86.0, ICD10: C50.311, Z17.0 (primary diagnosis) 2. Malignant neoplasm metastatic to bone (HCC) - ICD9: 198.5, ICD10: C79.51 3. HER2-positive carcinoma of breast (HCC) - ICD9: 174.9, ICD10: C50.919, Z17.31 4. Chemotherapy-induced neuropathy (HCC) - ICD9: 357.6, E933.1, ICD10: G62.0, T45.1X5A Per Dr. Rivers's previous note: Assessment: -Originally pT2 pN0(sln) MX ER positive (9%, very weak) WV negative HER overexpressed stage IIA invasive ductal carcinoma the right breast. -Recurrent pT2(m) pN0 (none of 5 LNs) MX ER +(15%, weak intensity)/WV negative (0%) HER2 3+ invasive ductal carcinoma the right breast while on AI (anastrozole). -Tolerating capecitabine at dose reduction better. -Discussed due for imaging. Plan: -Okay for Herceptin tomorrow. -Continue capecitabine . -Continue tucatinib. -Continue metoprolol to 25 mg BID. -Zometa every 3 months. -CTs -Echo in about 3 months. -Continue follow-up with Dr. Galeano. (G62.0, T45.1X5A) Chemotherapy-induced neuropathy (HCC) Assessment: -No subjective change. -Symptoms remain well controlled with Lyrica. Plan: -Continue Lyrica 150 mg twice daily. (L27.0) Drug rash Assessment: -Resolved currently Plan: -Continue Kenalog 0.1% cream prn if has recurrence. -Continue moisturizer. (Z86.39) History of thyroid nodule Stable on US fall 2022 and recent PET 08/2023. -Due for follow up US. - Restarted xeloda this week-had been on hold. - Tolerating herceptin well. - Reviewed CBC with pt. - CT's/CMP pending. - ECHO scheduled in October. - Continue zometa every 3 months. - Continue xeloda/tukysa/herceptin. - Proceed as scheduled tomorrow for hercetin pending CMP/CT's. - Follow up as scheduled. - Pt. aware to call office with any questions/concerns. The patient indicates understanding of these issues and agrees with the plan. All documentation from previous visit of 08/15/24-Dr. Rivers was copied and pasted, documentation has been reviewed and edited as necessary for today's visit. Caity Cote APRN.TERRITORY DEVELOPMENT MANAGER documented in this encounter [facility] 08-30-2024 History of Presen t illness Narrative Radiology Service Progress Note PATIENT NAME: Renate Christiansen DATE OF SERVICE: August 30, 2024 TIME: 2:27 PM PATIENT IDENTITY VERIFICATION COMPLETED USING TWO (2) IDENTIFIERS: Name and Date of confirmed by patient verbally. FALL SCREENING: Has the patient had 2 falls in the last year or 1 fall with injury or currently using an Ambulatory Assistive Device (Walker, Cane, Wheelchair, Crutches, etc.)? No PATIENT GENDER DATA: Assigned female at . status: : No status: NO. PATIENT RELEVANT IMPLANT DATA REVIEWED: Yes PATIENT PRESENTS WITH AN IMPLANTABLE OR ATTACHED PUBLICATIONS EDITOR: No RADIOLOGY DEPARTMENT: CT; Exam(s) Completed: Chest Abdomen Pelvis PERIPHERAL IV DATA: power ort accessed by [id number] SIGNED BY: RT Ashley(R) August 30, 2024 2:27 PM documented in this encounter [facility] 08-30-2024 History of Presen t illness Narrative Patient is here for IVAD port flush/blood draw per Nursing [place] protocol. IVAD is located in left upper chest. Site cleansed with Chloraprep IVAD accessed with a #20 gauge 3/4 non-coring Gripper needle Flush with 5cc's Normal Saline. Blood Return: Good. 10 cc's blood aspirated and discarded. Blood drawn for CBC and CMP. Flushed with: 20 ml Normal Saline. Non-coring needle left intact for further therapy. Opsite applied to puncture site. Site negative for redness, edema or tenderness. Patient tolerated procedure well. documented in this encounter [facility] 08-30-2024 History of Presen t illness Narrative Radiology Service Progress Note PATIENT NAME: Renate Christiansen DATE OF SERVICE: August 30, 2024 TIME: 8:04 AM PATIENT IDENTITY VERIFICATION COMPLETED USING TWO (2) IDENTIFIERS: Name and Date of confirmed by patient verbally. FALL SCREENING: Has the patient had 2 falls in the last year or 1 fall with injury or currently using an Ambulatory Assistive Device (Walker, Cane, Wheelchair, Crutches, etc.)? Yes, Patient High Risk for Falls What interventions were put in place to prevent falls during this visit? Offered Assistance with Transfers/Clothing, Instructed Patient to Remain Seated (Not on Exam Table) Until Exam, and Increased Observations by Caregivers PATIENT GENDER DATA: Assigned female at . status: : No status: NO. PATIENT RELEVANT IMPLANT DATA REVIEWED: Not Applicable PATIENT PRESENTS WITH AN IMPLANTABLE OR ATTACHED PUBLICATIONS EDITOR: No RADIOLOGY DEPARTMENT: Ultrasound PERIPHERAL IV DATA: Not applicable SIGNED BY: Bridget Hall RDMS August 30, 2024 8:04 AM documented in this encounter [facility] 08-29-2024 Telephone encounter Note Patient scheduled for 9:00. Send patient to hem/onc after she gets prep. [facility] Work Phone: 08-29-2024 Miscellaneous Notes Patient scheduled for 9:00. Send patient to hem/onc after she gets prep. Pt would like to use port for appt on 08/30/[address] She has an US appt at 7:45 can the port be after that and before the prep time at 8:20am Please call pt to confirm time documented in this encounter [facility] 08-29-2024 Telephone encounter Note Pt would like to use port for appt on 08/30/[address] She has an US appt at 7:45 can the port be after that and before the prep time at 8:20am Please call pt to confirm time [facility] 08-27-2024 History of Presen t illness Narrative [facility] Refill Assessment Medication(s): Capecitabine Patient's current medication list and adherence status to current therapy were reviewed by Specialty Pharmacy clinical pharmacist to identify any new drug interactions or non-compliance to therapy. Therapy continues to be appropriate for disease, patient response, and medical condition. Verification of therapeutic benefit and effectiveness with current therapy was completed. Adverse events, barriers in adherence, and side effects were assessed and addressed if applicable. Will proceed with refill with no changes in therapy - patient progressing towards achieving therapeutic goals based on medication-specific laboratory parameters, disease state markers and outcomes. Office/provider notes have been reviewed prior to dispensing the medication. 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 Patient confirmed: Yes Med/dose confirmed: Yes Supplies needed: No supplies needed Missed doses: No Estimated days supply on hand: 0 Next cycle/dose due: 09/03/24 Copay amount: 0 Payment confirmed: Yes Delivery method: FedEx Signature required: No Delivery address: [address] [place] [address] *take to back door* [place] [id number] Delivery date: 08/30/24 Questions or concerns for the pharmacist?: No Did you have any side effects believed to be related to this medication, that resulted in hospitalization?: No Current Outpatient Medications on File Prior to Visit Medication Sig iv contrast (will be provided with radiology test) CT Chest W -Inject, intravenously, once for 1 dose.No IV access, insert saline lock prior to the beginning of sedation, infusion, injection of imaging exam. Discontinue saline lock post exam. If Pt. has a central line or IVAD, may access for administration according to line specific nursing protocol. Once exam is complete flush line and de-access according to line specific nursing protocol in the CT contrast administration guidelines link. iv contrast (will be provided with radiology test) CT ABD/PEL -Inject, intravenously, once for 1 dose.No IV access, insert saline lock prior to the beginning of sedation, infusion, injection of imaging exam. Discontinue saline lock post exam. If Pt. has a central line or IVAD, may access for administration according to line specific nursing protocol. Once exam is complete flush line and de-access according to line specific nursing protocol in the CT contrast administration guidelines link. enteric contrast (will be provided with radiology test) For CT ABD/PEL W IVCON Routine order Administer, As Directed One Time Only, via Oral, Rectal, both Oral and Rectal, Enteric Tube, Stoma or Indwelling Catheter, Enteric Contrast as designated per enteric contrast guidelines pregabalin (LYRICA) 150 mg capsule Take 1 capsule by mouth two times a day for 90 days. metoprolol tartrate, short acting, (LOPRESSOR) 25 mg tablet Take 1 tablet by mouth twice daily (Patient taking differently: Take 25 mg by mouth once daily.) capecitabine (XELODA) 500 mg tablet Take 2 tablets (1000mg) in the morning and 2 tablets (1000mg) in the evening by mouth with food for 14 days then 7 days off. tucatinib (TUKYSA) 150 mg tablet Take 1 tablet (150 mg) by mouth two times a day with 1 other tucatinib prescription for 200 mg total. tucatinib (TUKYSA) 50 mg tablet Take 1 tablet (50 mg) by mouth two times a day with 1 other tucatinib prescription for 200 mg total. triamcinolone acetonide (KENALOG) 0.1 % cream Apply to affected area two times a day. promethazine (PHENERGAN) 25 mg tablet Take 1 tablet by mouth every 6 hours as needed. FOR NAUSEA loratadine (CLARITIN) 10 mg tablet Take 10 mg by mouth once daily. losartan (COZAAR) 50 mg tablet Take 2 tablets by mouth once daily. (Patient taking differently: Take 50 mg by mouth once daily.) ascorbic acid/bioflavonoids (MARY C ORAL) Take 500 mg by mouth once daily. loperamide HCl (IMODIUM) 2 mg tab Take 2 mg by mouth as needed. multivitamin tablet Take 1 tablet by mouth once daily. diphenhydrAMINE (BENADRYL) 25 mg tablet Take 25 mg by mouth twice daily as needed. No current facility-administered medications on file prior to visit. [facility] CLINICAL ASSESSMENT - HEMATOLOGY ONCOLOGY V6: Assessment to use: Refill Date of influenza vaccination reminder: 02/21/2024 Date of most recent vaccination assessment: 02/21/2024 Treatment Plan Information: Diagnosis: metastatic recurrence of ER+. WV-, Her2+ breast cancer Previous treatment(s): - Right sided lumpectomy and right axillary sentinel lymph node dissection - AC followed by paclitaxel/Herceptin - Adjuvant radiation - Nerlynx - Taxotere/Herceptin/Perjeta - Kadcyla - SBRT - Enhertu - RT Tx Plan: Herceptin + Capecitabine + Tukysa Starting Dose/Titration: Capecitabine 1500 mg BID for 14 days on, followed by 7 days off - 750 mg/m2 x 1.88 m2 = 1410 mg -> 1500 mg (dose reduced d/t renal function) - Confirmed with Dr. Rivers Administration: Take with water within 30 minutes after a meal. Swallow tablets whole. Warnings: include but are not limited to bone marrow suppression, cardiotoxicity (more common in pt with hx of coronary artery disease), GI toxicity, frxq-kli-hdyw syndrome (onset ~79 days), hepatotoxicity (onset ~64 days - hyperbilirubinemia) Adverse reactions: include but are not limited to fatigue, rash, N/V/D/C (diarrhea: onset ~34 days, lasting ~ 5 days - risk dehydration), mucositis Emetogenicity: min to low (<30% frequency of emesis) - NCCN Monitoring: - CBC with differential, hepatic function, and renal function should be monitored. - Monitor INR closely if receiving concomitant warfarin. - Monitor for diarrhea, dehydration, hand-foot syndrome, Orantes-Kristofer syndrome, toxic epidermal necrolysis, stomatitis, and cardiotoxicity. - Monitor adherence. Drug-Drug Interactions: none Baseline: - CrCl 47 ml/min using adjusted body weight. 63 ml/min using actual Est. Tx Plan Start Date: No information available Estimated Start Date Info: Per Dr. Rivers's discretion Est. Estimated Treatment Duration: Until disease progression or unacceptable toxicity Kaycee Juares documented in this encounter [facility] 08-16-2024 History of Presen t illness Narrative Office visit with Dr. Rivers on 08/15/24. Assessment reviewed and unchanged. Office visit with Dr. Rivers on 08/15/24. Assessment reviewed and unchanged. documented in this encounter [facility] 08-15-2024 History of Presen t illness Narrative Oncologic problem(s): 1) Metastatic recurrence of ER positive, WV negative, HER2 positive breast cancer. 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 HPI: The patient is a 68 year old female who discovered a lump on the lower inner portion of her right breast in the fall of 2015. She was seen at [facility] and underwent a right sided core biopsy on 02/16/2016 by interventional radiology. The tissue specimen demonstrated invasive ductal carcinoma, Sorento grade 2. ER positive (90%, very weak) and WV negative (0%). HER-2 was quantified at 3+. [...] 3) Nerlyx-stopped d/t diarrhea. Last dose of neratinib . I'm never taking that again. Seen here in early March for complaint of right breast fullness and tenderness. Diagnostic mammogram done on 03/07/2019 did not demonstrate a mass within the breast however on ultrasound there was a 0.8 cm x 0.6 cm x 0.9 cm lobulated mass with an indistinct margin in the right breast at 1:00 anterior depth 6 cm in the nipple. It was lobulated and hypoechoic with internal echoes. This corresponded to the tender area. There was also a 1.2 x 0.9 x 2 cm lobulated mass with a circumscribed margin in the right breast at 2:00 anterior depth 7 cm from the nipple. It also was hypoechoic with internal echoes. And it also was tender on exam. Patient next underwent ultrasound-guided right breast needle core biopsy 2 on 03/22/2019. Pathology: MICROSCOPIC DIAGNOSIS A. Right breast at 1 o clock, core biopsy: Invasive ductal carcinoma with the following characteristics: Maximal length - 10 mm Nuclear grade - 3/3 Other findings - ductal carcinoma in situ, nuclear 3/3 with focal comedo necrosis. B. Right breast at 2 o clock, core biopsy: Invasive ductal carcinoma with the following characteristics: Maximal length - 1.2 mm Nuclear grade - 2-3/3 ANTIBODY / CLONE RESULT Block A P53 (DO-7) positive, >90% Ki-67 (30-9) positive, 12% CK8 (31gcpvE58) positive CK5-6 (D5 & 1684) negative Calponin-1 (VZ205K) negative P40 (BC28) negative E-Cad (ECH-6) positive MORPHOMETRIC ANALYSIS ER (clone 6F11) 15%, weak intensity WV (clone 16/1E2) 0% Her-2Neu (clone CB11) 3+ Block B Calponin-1 (FS274K) negative P40 (BC28) negative CK8 (91ygfhY50) positive INTERPRETATION: A. Right breast 1 o clock, biopsy: Invasive ductal carcinoma, grade 3/3. Positive for estrogen receptors (favorable prognostic indicator). Negative for progesterone receptors (unfavorable prognostic indicator). Positive for overexpression of GKO6czy. B. Right breast 2 o clock, biopsy: Invasive ductal carcinoma, grade 2-3/3. Then underwent right breast modified mastectomy along with axillary lymph node dissection on 04/02/2019. Pathology: MICROSCOPIC DIAGNOSIS Right breast, modified radical mastectomy: Invasive ductal carcinoma x2. Ductal carcinoma in situ. Five out of five lymph nodes, negative for metastatic carcinoma. Hyalinized fibroadenomas x2. See cancer summary below. SJ:breann 04/05/19 INVASIVE BREAST CANCER SUMMARY: Specimen - total breast (including nipple and skin). Procedure - total mastectomy (including nipple and skin). Lymph node sampling - axillary dissection Specimen integrity - single, intact specimen Specimen laterality - right Tumor site - inner quadrant Tumor size: size of largest invasive carcinoma - 3.5 x 1.5 x 1.5 cm Tumor focality - two foci of invasive carcinoma Size of individual foci - 3.5 x 1.5 x 1.5 cm and 2 x 2 x 1 cm Macroscopic and Microscopic extent of tumor: Skin - invasive carcinoma does not invade into the dermis or epidermis. Nipple - DCIS does not involve nipple epidermis. Skeletal muscle - Skeletal muscle is present and is free of carcinoma. Ductal carcinoma in situ (DCIS) - present Extensive intraductal component (EIC) - negative Estimated size (extent) of DCIS - DCIS is present in the area of invasive carcinoma and comprise about 5% of the total tumor volume. Number of blocks with DCIS - 7 Number of blocks examined (breast tissue) - 16 Architectural patterns - cribriform and comedo Nuclear grade - grade 3 (high) Necrosis - present, central (expansive comedo necrosis) Lobular carcinoma in situ (LCIS) - not identified Histologic type of invasive carcinoma - invasive ductal carcinoma (no special type) Histologic Grade (Yohan grade): Glandular/tubular differentiation - score 3 Nuclear pleomorphism - score 3 Mitotic count - score 2 Overall grade - 3 (score of 8) Both tumor show similar morphologic features. Margins - larger focus of invasive carcinoma is present at the closest posterior margin of the specimen. - smaller focus of invasive carcinoma is 1.7 cm away from closest superior margin. - Margins are free of ductal carcinoma in situ. Treatment effect: Response to presurgical (neoadjuvant) therapy - no known presurgical therapy. Lymph-Vascular invasion - not identified Dermal lymph-vascular invasion - not identified Lymph nodes: Number of sentinel lymph nodes examined - 0 Total number of lymph nodes examined (sentinel and nonsentinel) - 5 Number of lymph nodes with macrometastases, micrometastases and isolated tumor cells - 0 Distant metastasis - not applicable Additional pathologic findings - hyalinized fibroadenomas x2 with focal calcifications. See comment. - Dense fibrosis and lobular involution. Ancillary studies - previously performed on section of tumor ([id number] / [id number]). ER - positive (15%, weak intensity) WV - negative (0%) Her2 krista - positive (3+) Microcalcifications - present in both invasive carcinoma and non-neoplastic tissue. Clinical history - Please make reference to previous specimen ([id number]) right breast at 1 o clock and right breast at 2 o clock core biopsies with diagnosis of invasive ductal carcinoma. PATHOLOGIC STAGE: pT2(m) pN0 Mx Evidently the larger focus of cancer was down to the chest wall muscle. Other significant past medical history was asymptomatic decline in ejection fraction 1 receiving Herceptin. Serial echocardiograms--March 2016 at that time he demonstrated ejection fraction of 72%. Another echocardiogram in September 2016 demonstrated ejection fraction of 55%. In November 2016 was 50% and in May 2017 was 45% with mild global hypokinesis. managed with beta-ruth and ARB. Most recent echocardiogram from May 2018 revealed normal left ventricular size with systolic function at lower limits of normal estimated at 53%. The global longitudinal strain was -19.4% (normal) cis. Stage I diastolic dysfunction was observed. Pulmonary artery pressure was 27 mmHg. ---- Had staging CTs scans that suggested lung metastases. Not able to biopsy. Previous therapy: 1) Taxotere/Herceptin/Perjeta. 2) Herceptin/Perjeta. Discontinued 01/2021 for progressive disease. 3) Kadcyla. 02/2021 through 07/2021. Discontinued secondary to significant worsening of neuropathy. 4) SBRT DYLAN metastasis completed 03/02/2023. 5) Enhertu. 6) RT right lung 09/30/2023. Current therapy: 1) Capecitabine, tukatinib and trastuzumab. Interim history: One cycle capecitabine held due to HFS. Now started 08/13. No diarrhea now. No symptoms of HFS. No symptoms of cardiomyopathy. Stable dyspnea with exertion. Neuropathy symptoms are stable. Uses a cane to help with balance. Subcutaneous metastasis on the anterior lower chest wall remains no longer palpable to her. PMH, medications and allergies personally reviewed by me today. Any changes documented in appropriate section. ROS: Constitutional: Denies episodes of fever and night sweats. Not significantly fatigued. Normal appetite. Neuro: Denies [place], vertigo, dizziness and imbalance. HEENT: No recent change in voice, vision or hearing. Resp: See above. CVS: See above. GI: Denies dysgeusia. Denies symptoms of stomatitis. Denies dysphagia and odynophagia. Denies abdominal pain. : Denies dysuria or gross hematuria. No symptoms of bladder outlet obstruction. Endo: Denies hot flashes. Denies polyuria and polydipsia. Denies heat and cold intolerance. Musculoskeletal: Denies bone, back, joint and muscular pain. Derm: See above. Heme: Denies unusual bleeding and unexplained bruising. Psych: Normal mood. PHYSICAL EXAM: Vitals: Blood pressure 129/75, pulse 68, temperature 36.8 C (98.2 F), temperature source Temporal, weight 79.6 kg (175 lb 8 oz), SpO2 98%. Well-appearing and in no acute distress. EYES: Sclerae are anicteric bilaterally. LYMPHATIC: There is no palpable cervical, supraclavicular adenopathy. CARDIOVASCULAR: Rhythm is regular. BREAST: Not examined today. ABDOMEN: The abdomen is nondistended. Extremities: No swelling or edema. SKIN: Continued resolution of subcutaneous metastasis near xyphoid. ASSESSMENT/PLAN: (C50.311, Z17.0) Malignant neoplasm of lower-inner quadrant of right breast of female, estrogen receptor positive (HCC) (primary encounter diagnosis) (C79.51) Bone metastases (HCC) (C78.01, C78.02) Malignant neoplasm metastatic to both lungs (HCC) (I42.7, T45.1X5A) Chemotherapy-induced cardiomyopathy (HCC) Assessment: -Originally pT2 pN0(sln) MX ER positive (9%, very weak) WV negative HER overexpressed stage IIA invasive ductal carcinoma the right breast. -Recurrent pT2(m) pN0 (none of 5 LNs) MX ER +(15%, weak intensity)/WV negative (0%) HER2 3+ invasive ductal carcinoma the right breast while on AI (anastrozole). -Tolerating capecitabine at dose reduction better. -Discussed due for imaging. Plan: -Okay for Herceptin tomorrow. -Continue capecitabine . -Continue tucatinib. -Continue metoprolol to 25 mg BID. -Zometa every 3 months. -CTs -Echo in about 3 months. -Continue follow-up with Dr. Galeano. (G62.0, T45.1X5A) Chemotherapy-induced neuropathy (HCC) Assessment: -No subjective change. -Symptoms remain well controlled with Lyrica. Plan: -Continue Lyrica 150 mg twice daily. (L27.0) Drug rash Assessment: -Resolved currently Plan: -Continue Kenalog 0.1% cream prn if has recurrence. -Continue moisturizer. (Z86.39) History of thyroid nodule Stable on US fall 2022 and recent PET 08/2023. -Due for follow up US. Portions of this documentation were copied and pasted from my previous office visit note dated 06/13/2024 in order to provide a cohesive continuity of the history. The note has been reviewed and edited and updated as necessary. Rip Rivers DO documented in this encounter [facility] 08-07-2024 Telephone encounter Note Prescription Refill Information The patient has been identified by name and date of : Yes Caregiver verified no other encounters exist for this prescription request: Yes Caregiver confirmed with patient/requestor that no other refills are due, in the near future, with this provider at this time: Yes The last office visit in the department: 07/25/2024 Does the patient have a future office visit with this provider/department: Yes Requested Prescriptions Pending Prescriptions Disp Refills metoprolol tartrate, short acting, (LOPRESSOR) 25 mg tablet [Pharmacy Med Name: Metoprolol Tartrate 25 MG Oral Tablet] 180 tablet 0 Sig: Take 1 tablet by mouth twice daily Chrissie Elliott LPN August 07, 2024 7:35 AM [facility] 08-07-2024 Miscellaneous Notes Prescription Refill Information The patient has been identified by name and date of : Yes Caregiver verified no other encounters exist for this prescription request: Yes Caregiver confirmed with patient/requestor that no other refills are due, in the near future, with this provider at this time: Yes The last office visit in the department: 07/25/2024 Does the patient have a future office visit with this provider/department: Yes Requested Prescriptions Pending Prescriptions Disp Refills metoprolol tartrate, short acting, (LOPRESSOR) 25 mg tablet [Pharmacy Med Name: Metoprolol Tartrate 25 MG Oral Tablet] 180 tablet 0 Sig: Take 1 tablet by mouth twice daily Chrissie Elliott LPN August 07, 2024 7:35 AM documented in this encounter [facility] 08-07-2024 Telephone encounter Note Prescription Refill Information The patient has been identified by name and date of : Yes Caregiver verified no other encounters exist for this prescription request: Yes Caregiver confirmed with patient/requestor that no other refills are due, in the near future, with this provider at this time: Yes The last office visit in the department: 07/25/2024 Does the patient have a future office visit with this provider/department: Yes Requested Prescriptions Pending Prescriptions Disp Refills pregabalin (LYRICA) 150 mg capsule [Pharmacy Med Name: Pregabalin Oral Capsule 150 MG 150 MG Capsule] 180 capsule Sig: Take 1 capsule by mouth two times a day. Chrissie Elliott LPN August 07, 2024 7:31 AM [facility] 08-07-2024 Miscellaneous Notes Prescription Refill Information The patient has been identified by name and date of : Yes Caregiver verified no other encounters exist for this prescription request: Yes Caregiver confirmed with patient/requestor that no other refills are due, in the near future, with this provider at this time: Yes The last office visit in the department: 07/25/2024 Does the patient have a future office visit with this provider/department: Yes Requested Prescriptions Pending Prescriptions Disp Refills pregabalin (LYRICA) 150 mg capsule [Pharmacy Med Name: Pregabalin Oral Capsule 150 MG 150 MG Capsule] 180 capsule Sig: Take 1 capsule by mouth two times a day. Chrissie Elliott LPN August 07, 2024 7:31 AM documented in this encounter [facility] 07-27-2024 Telephone encounter Note SOCIAL WORK FOLLOW UP NOTE: [facility] Faxed to [facility] 07/17/24. Sent to internal scanning. SHANE Leahy [facility] 07-27-2024 Miscellaneous Notes SOCIAL WORK FOLLOW UP NOTE: [facility] Faxed to [facility] 07/17/24. Sent to internal scanning. SHANE Leahy Printed. Rip Rivers DO SOCIAL WORK FOLLOW UP NOTE: [facility] Patient assistance [employer] is asking for a printed script of pt's Tukysa. Can you please include enough refills for the year? Thank you, SHANE Leahy documented in this encounter [facility] 07-25-2024 History of Presen t illness Narrative Renate Christiansen 1955 07/25/2024 HPI: Renate Christiansen is a 68 year old female who presents here today for follow up met. breast cancer. Per Dr. Rivers's previous note: H/o discovered a lump on the lower inner portion of her right breast in the fall of 2015. She was seen at [facility] and underwent a right sided core biopsy on 02/16/2016 by interventional radiology. The tissue specimen demonstrated invasive ductal carcinoma, Yohan grade 2. ER positive (90%, very weak) and WV negative (0%). HER-2 was quantified at 3+. [...] 3) Nerlyx-stopped d/t diarrhea. Last dose of neratinib . I'm never taking that again. Seen here in early March for complaint of right breast fullness and tenderness. Diagnostic mammogram done on 03/07/2019 did not demonstrate a mass within the breast however on ultrasound there was a 0.8 cm x 0.6 cm x 0.9 cm lobulated mass with an indistinct margin in the right breast at 1:00 anterior depth 6 cm in the nipple. It was lobulated and hypoechoic with internal echoes. This corresponded to the tender area. There was also a 1.2 x 0.9 x 2 cm lobulated mass with a circumscribed margin in the right breast at 2:00 anterior depth 7 cm from the nipple. It also was hypoechoic with internal echoes. And it also was tender on exam. Patient next underwent ultrasound-guided right breast needle core biopsy 2 on 03/22/2019. Pathology: MICROSCOPIC DIAGNOSIS A. Right breast at 1 o clock, core biopsy: Invasive ductal carcinoma with the following characteristics: Maximal length - 10 mm Nuclear grade - 3/3 Other findings - ductal carcinoma in situ, nuclear 3/3 with focal comedo necrosis. B. Right breast at 2 o clock, core biopsy: Invasive ductal carcinoma with the following characteristics: Maximal length - 1.2 mm Nuclear grade - 2-3/3 ANTIBODY / CLONE RESULT Block A P53 (DO-7) positive, >90% Ki-67 (30-9) positive, 12% CK8 ([id number]) positive CK5-6 (D5 & 1684) negative Calponin-1 (SG037S) negative P40 (BC28) negative E-Cad (ECH-6) positive MORPHOMETRIC ANALYSIS ER (clone 6F11) 15%, weak intensity WV (clone 16/1E2) 0% Her-2Neu (clone CB11) 3+ Block B Calponin-1 (SI229E) negative P40 (BC28) negative CK8 ([id number]) positive INTERPRETATION: A. Right breast 1 o clock, biopsy: Invasive ductal carcinoma, grade 3/3. Positive for estrogen receptors (favorable prognostic indicator). Negative for progesterone receptors (unfavorable prognostic indicator). Positive for overexpression of [id number]. B. Right breast 2 o clock, biopsy: Invasive ductal carcinoma, grade 2-3/3. Then underwent right breast modified mastectomy along with axillary lymph node dissection on 04/02/2019. Pathology: MICROSCOPIC DIAGNOSIS Right breast, modified radical mastectomy: Invasive ductal carcinoma x2. Ductal carcinoma in situ. Five out of five lymph nodes, negative for metastatic carcinoma. Hyalinized fibroadenomas x2. See cancer summary below. SJ:breann 04/05/19 INVASIVE BREAST CANCER SUMMARY: Specimen - total breast (including nipple and skin). Procedure - total mastectomy (including nipple and skin). Lymph node sampling - axillary dissection Specimen integrity - single, intact specimen Specimen laterality - right Tumor site - inner quadrant Tumor size: size of largest invasive carcinoma - 3.5 x 1.5 x 1.5 cm Tumor focality - two foci of invasive carcinoma Size of individual foci - 3.5 x 1.5 x 1.5 cm and 2 x 2 x 1 cm Macroscopic and Microscopic extent of tumor: Skin - invasive carcinoma does not invade into the dermis or epidermis. Nipple - DCIS does not involve nipple epidermis. Skeletal muscle - Skeletal muscle is present and is free of carcinoma. Ductal carcinoma in situ (DCIS) - present Extensive intraductal component (EIC) - negative Estimated size (extent) of DCIS - DCIS is present in the area of invasive carcinoma and comprise about 5% of the total tumor volume. Number of blocks with DCIS - 7 Number of blocks examined (breast tissue) - 16 Architectural patterns - cribriform and comedo Nuclear grade - grade 3 (high) Necrosis - present, central (expansive comedo necrosis) Lobular carcinoma in situ (LCIS) - not identified Histologic type of invasive carcinoma - invasive ductal carcinoma (no special type) Histologic Grade (Sorento grade): Glandular/tubular differentiation - score 3 Nuclear pleomorphism - score 3 Mitotic count - score 2 Overall grade - 3 (score of 8) Both tumor show similar morphologic features. Margins - larger focus of invasive carcinoma is present at the closest posterior margin of the specimen. - smaller focus of invasive carcinoma is 1.7 cm away from closest superior margin. - Margins are free of ductal carcinoma in situ. Treatment effect: Response to presurgical (neoadjuvant) therapy - no known presurgical therapy. Lymph-Vascular invasion - not identified Dermal lymph-vascular invasion - not identified Lymph nodes: Number of sentinel lymph nodes examined - 0 Total number of lymph nodes examined (sentinel and nonsentinel) - 5 Number of lymph nodes with macrometastases, micrometastases and isolated tumor cells - 0 Distant metastasis - not applicable Additional pathologic findings - hyalinized fibroadenomas x2 with focal calcifications. See comment. - Dense fibrosis and lobular involution. Ancillary studies - previously performed on section of tumor ([id number] / [id number]). ER - positive (15%, weak intensity) WV - negative (0%) Her2 krista - positive (3+) Microcalcifications - present in both invasive carcinoma and non-neoplastic tissue. Clinical history - Please make reference to previous specimen ([id number]) right breast at 1 o clock and right breast at 2 o clock core biopsies with diagnosis of invasive ductal carcinoma. PATHOLOGIC STAGE: pT2(m) pN0 Mx Evidently the larger focus of cancer was down to the chest wall muscle. Other significant past medical history was asymptomatic decline in ejection fraction 1 receiving Herceptin. Serial echocardiograms--March 2016 at that time he demonstrated ejection fraction of 72%. Another echocardiogram in September 2016 demonstrated ejection fraction of 55%. In November 2016 was 50% and in May 2017 was 45% with mild global hypokinesis. managed with beta-ruth and ARB. Most recent echocardiogram from May 2018 revealed normal left ventricular size with systolic function at lower limits of normal estimated at 53%. The global longitudinal strain was -19.4% (normal) cis. Stage I diastolic dysfunction was observed. Pulmonary artery pressure was 27 mmHg. ---- Had staging CTs scans that suggested lung metastases. Not able to biopsy. Previous therapy: 1) Taxotere/Herceptin/Perjeta. 2) Herceptin/Perjeta. Discontinued 01/2021 for progressive disease. 3) Kadcyla. 02/2021 through 07/2021. Discontinued secondary to significant worsening of neuropathy. 4) SBRT DYLAN metastasis completed 03/02/2023. 5) Enhertu. 6) RT right lung 09/30/2023. Current therapy: 1) Capecitabine, tukatinib and trastuzumab. Interval Hx: Ms. Christiansen presents today with her spouse for follow up prior to zometa. She reports feeling well today. She restarted her xeloda on Tuesday (07/23) after a 3 week break for skin toxicities. Tolerating well so far. Diarrhea restarted once she resumed, managed with 1 imodium daily. Appetite is very good, but lost 2 lbs. No belly pain - but she feels like food runs right through her about 30 minutes after eating. No cramping. Denies new aches or pains. No new lumps or bumps. HFS resolved entirely at this time. Able to wear tennis shoes. Advised proactive moisturizing Neuopathy is stable. No bleeding. No cough, SOB, or CP The ROS is otherwise negative. Past medical history, appointments, medications, allergies reviewed. No changes. EXAM: BP 124/77 Pulse 61 Temp 37.1 C (98.8 F) (Temporal) Wt 78 kg (172 lb) SpO2 99% BMI 31.69 kg/m APPEARANCE Well appearing, alert, in no acute distress, well-hydrated, well nourished. HEART RRR with normal S1 and S2, no murmurs LUNG clear to auscultation LYMPH NODES No cervical lymphadenopathy, No supraclavicular lymphadenopathy, and No axillary lymphadenopathy. ABDOMEN bowel sounds normoactive, soft, non-tender EXTREMITIES No edema NEURO Awake, alert and oriented x 3, Normal gait, and No involuntary motions. SKIN soles of feet with erythema, blister and cracking near heel LABS: Lab Results Component Value Date WBC 3.79 07/25/2024 HB 13.2 07/25/2024 MCV 112.3 (H) 07/25/2024 PLT 115 (L) 07/25/2024 Lab Results Component Value Date NA 142 07/25/2024 K 3.6 (L) 07/25/2024 CO2 27 07/25/2024 BUN 17 07/25/2024 CREAT 1.13 (H) 07/25/2024 TBILI 0.5 07/25/2024 TPROT 6.6 07/25/2024 ALB 4.2 07/25/2024 ALKPHOS 143 (H) 07/25/2024 ALT 17 07/25/2024 AST 31 07/25/2024 ASSESSMENT/PLAN: 1. Malignant neoplasm of lower-inner quadrant of right breast of female, estrogen receptor positive (HCC) - ICD9: 174.3, V86.0, ICD10: C50.311, Z17.0 (primary diagnosis) 2. Malignant neoplasm metastatic to bone (HCC) - ICD9: 198.5, ICD10: C79.51 3. Malignant neoplasm metastatic to both lungs (HCC) - ICD9: 197.0, ICD10: C78.01, C78.02 4. 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 - Reviewed CBC/CMP with pt. - CT's due early August - ECHO due early September. - Continue with JULITO gerard 2 tabs in a.m. and 2 tabs in p.m. - encouraged frequent moisturizing. Advised to call with any issues. - Continue tucatinib at current dose. - Continue zometa every 3 months, next dose September. - Follow up as scheduled otherwise. - Pt. aware to call office with any questions/concerns. Quita Hoff APRN.TERRITORY DEVELOPMENT MANAGER I spent a total of 30 minutes on the date of the service which included preparing to see the patient, [id number] patient care, completing clinical documentation, obtaining and/or reviewing separately obtained history, and counseling and educating the patient/family/caregiver. Portions of this note including HPI, ROS, impression/plan may have been copied forward as to provide important historical information essential in contributing to medical decision making. Documentation has been reviewed and edited as necessary to support clinical decision making for today's visit and to reflect my own independent evaluation of this patient. documented in this encounter [facility] 07-17-2024 Telephone encounter Note Printed. Rip Rivers DO [place] 07-17-2024 Telephone encounter Note SOCIAL WORK FOLLOW UP NOTE: [facility] Patient assistance company is asking for a printed script of pt's Tukysa. Can you please include enough refills for the year? Thank you, SHANE Leahy [place] 07-04-2024 Telephone encounter Note SOCIAL WORK FOLLOW UP NOTE: [facility] Date of service: July 04, 2024 Renate Christiansen is being seen for a follow up social work visit. Today's visit includes: spouse and patient TOPICS ADDRESSED: SW met with pt and her spouse this date. Pt reports she attempted to refill her Tukysa through patient assistance but was informed re-enrollment forms are needed. SW and pt completed forms this date. SW to review with physician and obtain his signature as well. Once completed, SW will fax to [employer] and send to internal scanning. No other needs identified at this time. PLAN: Continue follow up as needed F/U APPOINTMENT: PRN Assigned ELOISA listed in Care Team tab: Yes SHANE Leahy [place] 07-04-2024 Miscellaneous Notes SOCIAL WORK FOLLOW UP NOTE: [facility] Date of service: July 04, 2024 Renate Christiansen is being seen for a follow up social work visit. Today's visit includes: spouse and patient TOPICS ADDRESSED: SW met with pt and her spouse this date. Pt reports she attempted to refill her Tukysa through patient assistance but was informed re-enrollment forms are needed. SW and pt completed forms this date. SW to review with physician and obtain his signature as well. Once completed, SW will fax to [employer] and send to internal scanning. No other needs identified at this time. PLAN: Continue follow up as needed F/U APPOINTMENT: PRN Assigned ELOISA listed in Care Team tab: Yes DIO Leahy-S documented in this encounter [facility] 07-04-2024 History of Presen t illness Narrative Chief Complaint Patient presents with: Established Patient HPI: Renate Christiansen is a 68 year old female who presents here today for follow up met. breast cancer. Per Dr. Rivers's previous note: H/o discovered a lump on the lower inner portion of her right breast in the fall of 2015. She was seen at [facility] and underwent a right sided core biopsy on 02/16/2016 by interventional radiology. The tissue specimen demonstrated invasive ductal carcinoma, Yohan grade 2. ER positive (90%, very weak) and WV negative (0%). HER-2 was quantified at 3+. [...] 3) Nerlyx-stopped d/t diarrhea. Last dose of neratinib . I'm never taking that again. Seen here in early March for complaint of right breast fullness and tenderness. Diagnostic mammogram done on 03/07/2019 did not demonstrate a mass within the breast however on ultrasound there was a 0.8 cm x 0.6 cm x 0.9 cm lobulated mass with an indistinct margin in the right breast at 1:00 anterior depth 6 cm in the nipple. It was lobulated and hypoechoic with internal echoes. This corresponded to the tender area. There was also a 1.2 x 0.9 x 2 cm lobulated mass with a circumscribed margin in the right breast at 2:00 anterior depth 7 cm from the nipple. It also was hypoechoic with internal echoes. And it also was tender on exam. Patient next underwent ultrasound-guided right breast needle core biopsy 2 on 03/22/2019. Pathology: MICROSCOPIC DIAGNOSIS A. Right breast at 1 o clock, core biopsy: Invasive ductal carcinoma with the following characteristics: Maximal length - 10 mm Nuclear grade - 3/3 Other findings - ductal carcinoma in situ, nuclear 3/3 with focal comedo necrosis. B. Right breast at 2 o clock, core biopsy: Invasive ductal carcinoma with the following characteristics: Maximal length - 1.2 mm Nuclear grade - 2-3/3 ANTIBODY / CLONE RESULT Block A P53 (DO-7) positive, >90% Ki-67 (30-9) positive, 12% CK8 (98npidC76) positive CK5-6 (D5 & 1684) negative Calponin-1 (IS897A) negative P40 (BC28) negative E-Cad (ECH-6) positive MORPHOMETRIC ANALYSIS ER (clone 6F11) 15%, weak intensity WV (clone 16/1E2) 0% Her-2Neu (clone CB11) 3+ Block B Calponin-1 (UX731I) negative P40 (BC28) negative CK8 ([id number]) positive INTERPRETATION: A. Right breast 1 o clock, biopsy: Invasive ductal carcinoma, grade 3/3. Positive for estrogen receptors (favorable prognostic indicator). Negative for progesterone receptors (unfavorable prognostic indicator). Positive for overexpression of PDH2bhc. B. Right breast 2 o clock, biopsy: Invasive ductal carcinoma, grade 2-3/3. Then underwent right breast modified mastectomy along with axillary lymph node dissection on 04/02/2019. Pathology: MICROSCOPIC DIAGNOSIS Right breast, modified radical mastectomy: Invasive ductal carcinoma x2. Ductal carcinoma in situ. Five out of five lymph nodes, negative for metastatic carcinoma. Hyalinized fibroadenomas x2. See cancer summary below. SJ:breann 04/05/19 INVASIVE BREAST CANCER SUMMARY: Specimen - total breast (including nipple and skin). Procedure - total mastectomy (including nipple and skin). Lymph node sampling - axillary dissection Specimen integrity - single, intact specimen Specimen laterality - right Tumor site - inner quadrant Tumor size: size of largest invasive carcinoma - 3.5 x 1.5 x 1.5 cm Tumor focality - two foci of invasive carcinoma Size of individual foci - 3.5 x 1.5 x 1.5 cm and 2 x 2 x 1 cm Macroscopic and Microscopic extent of tumor: Skin - invasive carcinoma does not invade into the dermis or epidermis. Nipple - DCIS does not involve nipple epidermis. Skeletal muscle - Skeletal muscle is present and is free of carcinoma. Ductal carcinoma in situ (DCIS) - present Extensive intraductal component (EIC) - negative Estimated size (extent) of DCIS - DCIS is present in the area of invasive carcinoma and comprise about 5% of the total tumor volume. Number of blocks with DCIS - 7 Number of blocks examined (breast tissue) - 16 Architectural patterns - cribriform and comedo Nuclear grade - grade 3 (high) Necrosis - present, central (expansive comedo necrosis) Lobular carcinoma in situ (LCIS) - not identified Histologic type of invasive carcinoma - invasive ductal carcinoma (no special type) Histologic Grade (Yohan grade): Glandular/tubular differentiation - score 3 Nuclear pleomorphism - score 3 Mitotic count - score 2 Overall grade - 3 (score of 8) Both tumor show similar morphologic features. Margins - larger focus of invasive carcinoma is present at the closest posterior margin of the specimen. - smaller focus of invasive carcinoma is 1.7 cm away from closest superior margin. - Margins are free of ductal carcinoma in situ. Treatment effect: Response to presurgical (neoadjuvant) therapy - no known presurgical therapy. Lymph-Vascular invasion - not identified Dermal lymph-vascular invasion - not identified Lymph nodes: Number of sentinel lymph nodes examined - 0 Total number of lymph nodes examined (sentinel and nonsentinel) - 5 Number of lymph nodes with macrometastases, micrometastases and isolated tumor cells - 0 Distant metastasis - not applicable Additional pathologic findings - hyalinized fibroadenomas x2 with focal calcifications. See comment. - Dense fibrosis and lobular involution. Ancillary studies - previously performed on section of tumor ([id number] / [id number]). ER - positive (15%, weak intensity) WV - negative (0%) Her2 krista - positive (3+) Microcalcifications - present in both invasive carcinoma and non-neoplastic tissue. Clinical history - Please make reference to previous specimen ([id number]) right breast at 1 o clock and right breast at 2 o clock core biopsies with diagnosis of invasive ductal carcinoma. PATHOLOGIC STAGE: pT2(m) pN0 Mx Evidently the larger focus of cancer was down to the chest wall muscle. Other significant past medical history was asymptomatic decline in ejection fraction 1 receiving Herceptin. Serial echocardiograms--March 2016 at that time he demonstrated ejection fraction of 72%. Another echocardiogram in September 2016 demonstrated ejection fraction of 55%. In November 2016 was 50% and in May 2017 was 45% with mild global hypokinesis. managed with beta-ruth and ARB. Most recent echocardiogram from May 2018 revealed normal left ventricular size with systolic function at lower limits of normal estimated at 53%. The global longitudinal strain was -19.4% (normal) cis. Stage I diastolic dysfunction was observed. Pulmonary artery pressure was 27 mmHg. ---- Had staging CTs scans that suggested lung metastases. Not able to biopsy. Previous therapy: 1) Taxotere/Herceptin/Perjeta. 2) Herceptin/Perjeta. Discontinued 01/2021 for progressive disease. 3) Kadcyla. 02/2021 through 07/2021. Discontinued secondary to significant worsening of neuropathy. 4) SBRT DYLAN metastasis completed 03/02/2023. 5) Enhertu. 6) RT right lung 09/30/2023. Current therapy: 1) Capecitabine, tukatinib and trastuzumab. Pt. here today with spouse. Pt. started this cycle of xeloda on Tuesday. Appetite:Good. Wt. stable. Energy level:It's the same as what it has been. I'm still tired. Denies fevers. Mouth:denies sores Resp:denies cough or sob Cardiac:denies chest pain/palpitations GI:denies abd pain, n/v, takes imodium in the mornings-usually one per day :denies dysuria/hematuria Extrem:denies pain Neuro:neuropathy stable Skin:+erythema to soles of feet, mild blister to L, cracks to heel Heme:denies bleeding The ROS is otherwise negative. Past medical history, appointments, medications, allergies reviewed. No changes. EXAM: BP 98/64 Pulse 63 Temp 36.8 C (98.3 F) (Temporal) Wt 78.9 kg (174 lb) SpO2 96% BMI 32.06 kg/m APPEARANCE Well appearing, alert, in no acute distress, well-hydrated, well nourished. HEART RRR with normal S1 and S2, no murmurs LUNG clear to auscultation LYMPH NODES No cervical lymphadenopathy, No supraclavicular lymphadenopathy, and No axillary lymphadenopathy. ABDOMEN bowel sounds normoactive, soft, non-tender EXTREMITIES No edema NEURO Awake, alert and oriented x 3, Normal gait, and No involuntary motions. SKIN soles of feet with erythema, blister and cracking near heel LABS: Latest Ref Rng 05/23/2024 06/13/2024 07/04/2024 WBC 3.70 - 11.00 k/uL 3.60 (L) 3.50 (L) 3.42 (L) RBC 3.90 - 5.20 m/uL 3.07 (L) 3.07 (L) 2.95 (L) Hemoglobin 11.5 - 15.5 g/dL 12.1 12.1 11.5 Hematocrit 36.0 - 46.0 % 35.2 (L) 35.5 (L) 33.9 (L) MCV 80.0 - 100.0 fL 114.7 (H) 115.6 (H) 114.9 (H) MCH 26.0 - 34.0 pg 39.4 (H) 39.4 (H) 39.0 (H) MCHC 30.5 - 36.0 g/dL 34.4 34.1 33.9 RDW-CV 11.5 - 15.0 % 17.4 (H) 17.2 (H) 16.7 (H) Platelet Count 150 - 400 k/uL 136 (L) 138 (L) 101 (L) MPV 9.0 - 12.7 fL 9.9 9.6 9.2 Neut% % 59.6 55.9 55.2 Abs Neut (ANC) 1.45 - 7.50 k/uL 2.15 1.96 1.89 Lymph% % 18.1 22.0 27.2 Abs Lymph 1.00 - 4.00 k/uL 0.65 (L) 0.77 (L) 0.93 (L) Cotton% % 15.6 14.6 12.3 Abs Cotton <0.87 k/uL 0.56 0.51 0.42 Eosin% % 5.8 6.9 4.4 Abs Eosin <0.46 k/uL 0.21 0.24 0.15 Baso% % 0.6 0.6 0.3 Abs Baso <0.11 k/uL <0.03 <0.03 <0.03 Immature Gran % % 0.3 0.0 0.6 IMMATURE GRANS (ABS) <0.10 k/uL <0.03 <0.03 <0.03 NRBC /100 WBC 0.0 0.0 0.0 Absolute nRBC <0.01 k/uL <0.01 <0.01 <0.01 DTYPE Auto Auto Auto Latest Ref Rng 05/23/2024 06/13/2024 07/04/2024 Protein, Total 6.3 - 8.0 g/dL 6.1 (L) 6.0 (L) 5.8 (L) Albumin 3.9 - 4.9 g/dL 4.2 4.0 4.0 Calcium 8.5 - 10.2 mg/dL 10.2 9.2 9.7 Bilirubin, Total 0.2 - 1.3 mg/dL 1.1 0.9 0.6 Alkaline Phosphatase 34 - 123 U/L 116 112 108 AST 13 - 35 U/L 37 (H) 35 40 (H) ALT 7 - 38 U/L 17 18 22 Glucose 74 - 99 mg/dL 111 (H) 104 (H) 143 (H) BUN 7 - 21 mg/dL 16 15 16 Creatinine 0.58 - 0.96 mg/dL 1.40 (H) 1.23 (H) 1.25 (H) Sodium 136 - 144 mmol/L 140 140 140 Potassium 3.7 - 5.1 mmol/L 3.8 4.5 3.8 Chloride 98 - 107 mmol/L 103 106 105 CO2 22 - 30 mmol/L 28 27 26 Anion Gap 8 - 15 mmol/L 9 7 (L) 9 eGFR >=60 mL/min/1.73m 41 (L) 47 (L) 46 (L) ASSESSMENT/PLAN: 1. Malignant neoplasm of lower-inner quadrant of right breast of female, estrogen receptor positive (HCC) - ICD9: 174.3, V86.0, ICD10: C50.311, Z17.0 (primary diagnosis) 2. Malignant neoplasm metastatic to bone (HCC) - ICD9: 198.5, ICD10: C79.51 3. Malignant neoplasm metastatic to both lungs (HCC) - ICD9: 197.0, ICD10: C78.01, C78.02 4. 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 - Reviewed CBC/CMP with pt. - CT's due early August. - ECHO due early September. - Hold xeloda the rest of this cycle. - Dose reduce xeloda next cycle to 2 tabs in a.m. and 2 tabs in p.m. - Continue tucatinib at current dose. - Continue zometa every 3 months. - Proceed as scheduled tomorrow for zometa and ontruzant. - Follow up as scheduled otherwise. - Pt. aware to call office with any questions/concerns. Discussed case with Dr. Rivers who agrees with treatment. The patient indicates understanding of these issues and agrees with the plan. All documentation from previous visit of 06/13/24-Dr. Rivers was copied and pasted, documentation has been reviewed and edited as necessary for today's visit. Caity Cote APRN.TERRITORY DEVELOPMENT MANAGER documented in this encounter [facility] 07-04-2024 History of Presen t illness Narrative Patient is here for IVAD port flush/blood draw per Nursing [place] protocol. IVAD is located in left upper chest. Site cleansed with Chloraprep IVAD accessed with a #20 gauge 3/4 non-coring Gripper needle Flush with 5cc's Normal Saline. Blood Return: Good. 10 cc's blood aspirated and discarded. Blood drawn for CBC and CMP. Flushed with: 20 ml Normal Saline. Non-coring needle removed. Paper tape applied to puncture site. Site negative for redness, edema or tenderness. Patient tolerated procedure well. documented in this encounter [facility] 06-29-2024 Telephone encounter Note The following approved medication requests have been transmitted electronically. Requested Prescriptions Signed Prescriptions Disp Refills tucatinib (TUKYSA) 50 mg tablet 60 tablet 5 Sig: Take 1 tablet (50 mg) by mouth two times a day with 1 other tucatinib prescription for 200 mg total. Authorizing Provider: RIP RIVERS tucatinib (TUKYSA) 150 mg tablet 60 tablet 5 Sig: Take 1 tablet (150 mg) by mouth two times a day with 1 other tucatinib prescription for 200 mg total. Authorizing Provider: RIP RIVERS DO [facility] 06-29-2024 Miscellaneous Notes The following approved medication requests have been transmitted electronically. Requested Prescriptions Signed Prescriptions Disp Refills tucatinib (TUKYSA) 50 mg tablet 60 tablet 5 Sig: Take 1 tablet (50 mg) by mouth two times a day with 1 other tucatinib prescription for 200 mg total. Authorizing Provider: RIP RIVERS tucatinib (TUKYSA) 150 mg tablet 60 tablet 5 Sig: Take 1 tablet (150 mg) by mouth two times a day with 1 other tucatinib prescription for 200 mg total. Authorizing Provider: RIP RIVERS DO Rx pended. Jazlyn Harding LPN Patient calling for refill of Tukysa. Patient states it is free from pharm. Patient states it is Sonexus. documented in this encounter [facility] 06-29-2024 Telephone encounter Note Rx pended. Jazlyn Harding LPN [place] 06-29-2024 Telephone encounter Note Patient calling for refill of Tukysa. Patient states it is free from pharm. Patient states it is Sonexus. [facility] Work Phone: 06-29-2024 History of Presen t illness Narrative [facility] Refill Assessment Medication(s): Capecitabine 500mg Reviewed OV note on 06/13. Labs reviewed. No diarrhea this past cycle. Will get flu shot tomorrow. Plan to continue capecitabine in combination with Tukysa (PAP) and Herceptin. Next clinic visit scheduled 07/04. Capecitabine cycle (14d on 7d off) as follow: C1D1 11/04/23 C10D1 05/21/24 C11D1 06/11/24 C12D1 07/02/24 C13D1 07/23/24 ALLERGIES Allergen Reactions Neratinib Hives Hives/itching/ nausea vomiting and diarrhea Amoxil [Amoxicillin] Rash Aspirin Other: See Comments Internal bleeding Cephalosporins Unknown Ciprocinonide Unknown Codeine Unknown Demerol [Meperidine* Unknown Erythromycin Unknown Latex Rash Sully [Hydrocodone-* Hives Nubain [Nalbuphine * Unknown Paxlovid [Nirmatrel* Intolerance Kidneys shut down Percocet [Oxycodone* Rash, Itching [place] Other: See Comments Migraine headache Sulfa (Sulfonamide * Other: See Comments Fever/Gi upset/listless Patient's current medication list and adherence status to current therapy were reviewed by Specialty Pharmacy clinical pharmacist to identify any new drug interactions or non-compliance to therapy. Therapy continues to be appropriate for disease, patient response, and medical condition. Verification of therapeutic benefit and effectiveness with current therapy was completed. Adverse events, barriers in adherence, and side effects were assessed and addressed if applicable. Will proceed with refill with no changes in therapy - patient progressing towards achieving therapeutic goals based on medication-specific laboratory parameters, disease state markers and outcomes. Office/provider notes have been reviewed prior to dispensing the medication. Sunitha QuijanoD Clinical Pharmacist, Oncology [facility] P: ; F: Pool: P [facility] Pool #: [id number] 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 Patient confirmed: Yes Med/dose confirmed: Yes Supplies needed: No supplies needed Missed doses: No Estimated days supply on hand: 0 Next cycle/dose due: 07/02/24 Copay amount: 0 Payment confirmed: Yes Delivery method: FedEx Signature required: Waived on patient request Delivery address: [address] [place] [address], *Take to back door,* [place], [address] Delivery date: 06/30/24 Questions or concerns for the pharmacist?: No Did you have any side effects believed to be related to this medication, that resulted in hospitalization?: No Current Outpatient Medications on File Prior to Visit Medication Sig capecitabine (XELODA) 500 mg tablet Take 3 tablets (1500 mg) in the morning and 2 tablets (1000mg) in the evening by mouth with food for 14 days then 7 days off. metoprolol tartrate, short acting, (LOPRESSOR) 25 mg tablet Take 1 tablet by mouth twice daily triamcinolone acetonide (KENALOG) 0.1 % cream Apply to affected area two times a day. pregabalin (LYRICA) 150 mg capsule Take 1 capsule by mouth two times a day for 180 days. tucatinib (TUKYSA) 50 mg tablet Take 1 tablet (50 mg) by mouth two times a day with 1 other tucatinib prescription for 200 mg total. tucatinib (TUKYSA) 150 mg tablet Take 1 tablet (150 mg) by mouth two times a day with 1 other tucatinib prescription for 200 mg total. promethazine (PHENERGAN) 25 mg tablet Take 1 tablet by mouth every 6 hours as needed. FOR NAUSEA loratadine (CLARITIN) 10 mg tablet Take 10 mg by mouth once daily. losartan (COZAAR) 50 mg tablet Take 2 tablets by mouth once daily. ascorbic acid/bioflavonoids (MARY C ORAL) Take 500 mg by mouth once daily. loperamide HCl (IMODIUM) 2 mg tab Take 2 mg by mouth as needed. multivitamin tablet Take 1 tablet by mouth once daily. diphenhydrAMINE (BENADRYL) 25 mg tablet Take 25 mg by mouth twice daily as needed. No current facility-administered medications on file prior to visit. [facility] SPECIAL[facility] CLINICAL ASSESSMENT - HEMATOLOGY ONCOLOGY V6: Ivent complete: No Assessment to use: Refill Lab monitoring inclusive of CBC, Chem-7, and other labs as pertinent for therapy: Yes Chemo cycle timing assessment: Yes Assessment of injection issues: N/A Current medication list (including drug interaction assessment): Yes Experience of adverse reactions to the medication: Yes Date of influenza vaccination reminder: 02/21/2024 Date of most recent vaccination assessment: 02/21/2024 Treatment Plan Information: Diagnosis: metastatic recurrence of ER+. WV-, Her2+ breast cancer Previous treatment(s): - Right sided lumpectomy and right axillary sentinel lymph node dissection - AC followed by paclitaxel/Herceptin - Adjuvant radiation - Nerlynx - Taxotere/Herceptin/Perjeta - Kadcyla - SBRT - Enhertu - RT Tx Plan: Herceptin + Capecitabine + Tukysa Starting Dose/Titration: Capecitabine 1500 mg BID for 14 days on, followed by 7 days off - 750 mg/m2 x 1.88 m2 = 1410 mg -> 1500 mg (dose reduced d/t renal function) - Confirmed with Dr. Rivers Administration: Take with water within 30 minutes after a meal. Swallow tablets whole. Warnings: include but are not limited to bone marrow suppression, cardiotoxicity (more common in pt with hx of coronary artery disease), GI toxicity, ngys-htr-cjnb syndrome (onset ~79 days), hepatotoxicity (onset ~64 days - hyperbilirubinemia) Adverse reactions: include but are not limited to fatigue, rash, N/V/D/C (diarrhea: onset ~34 days, lasting ~ 5 days - risk dehydration), mucositis Emetogenicity: min to low (<30% frequency of emesis) - NCCN Monitoring: - CBC with differential, hepatic function, and renal function should be monitored. - Monitor INR closely if receiving concomitant warfarin. - Monitor for diarrhea, dehydration, hand-foot syndrome, Orantes-Kristofer syndrome, toxic epidermal necrolysis, stomatitis, and cardiotoxicity. - Monitor adherence. Drug-Drug Interactions: none Baseline: - CrCl 47 ml/min using adjusted body weight. 63 ml/min using actual Est. Tx Plan Start Date: No information available Estimated Start Date Info: Per Dr. Rivers's discretion Est. Estimated Treatment Duration: Until disease progression or unacceptable toxicity Madhavi Corrales documented in this encounter [facility] 06-14-2024 History of Presen t illness Narrative Pt stated no changes to assessment from OV yesterday. Lexie Hartley, PRINCE documented in this encounter [facility] 06-13-2024 History of Presen t illness Narrative Oncologic problem(s): 1) Metastatic recurrence of ER positive, WV negative, HER2 positive breast cancer. 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 HPI: The patient is a 68 year old female who discovered a lump on the lower inner portion of her right breast in the fall of 2015. She was seen at [facility] and underwent a right sided core biopsy on 02/16/2016 by interventional radiology. The tissue specimen demonstrated invasive ductal carcinoma, Sorento grade 2. ER positive (90%, very weak) and WV negative (0%). HER-2 was quantified at 3+. [...] 3) Nerlyx-stopped d/t diarrhea. Last dose of neratinib . I'm never taking that again. Seen here in early March for complaint of right breast fullness and tenderness. Diagnostic mammogram done on 03/07/2019 did not demonstrate a mass within the breast however on ultrasound there was a 0.8 cm x 0.6 cm x 0.9 cm lobulated mass with an indistinct margin in the right breast at 1:00 anterior depth 6 cm in the nipple. It was lobulated and hypoechoic with internal echoes. This corresponded to the tender area. There was also a 1.2 x 0.9 x 2 cm lobulated mass with a circumscribed margin in the right breast at 2:00 anterior depth 7 cm from the nipple. It also was hypoechoic with internal echoes. And it also was tender on exam. Patient next underwent ultrasound-guided right breast needle core biopsy 2 on 03/22/2019. Pathology: MICROSCOPIC DIAGNOSIS A. Right breast at 1 o clock, core biopsy: Invasive ductal carcinoma with the following characteristics: Maximal length - 10 mm Nuclear grade - 3/3 Other findings - ductal carcinoma in situ, nuclear 3/3 with focal comedo necrosis. B. Right breast at 2 o clock, core biopsy: Invasive ductal carcinoma with the following characteristics: Maximal length - 1.2 mm Nuclear grade - 2-3/3 ANTIBODY / CLONE RESULT Block A P53 (DO-7) positive, >90% Ki-67 (30-9) positive, 12% CK8 ([id number]) positive CK5-6 (D5 & 1684) negative Calponin-1 (CP020I) negative P40 (BC28) negative E-Cad (ECH-6) positive MORPHOMETRIC ANALYSIS ER (clone 6F11) 15%, weak intensity WV (clone 16/1E2) 0% Her-2Neu (clone CB11) 3+ Block B Calponin-1 (IB199I) negative P40 (BC28) negative CK8 ([id number]) positive INTERPRETATION: A. Right breast 1 o clock, biopsy: Invasive ductal carcinoma, grade 3/3. Positive for estrogen receptors (favorable prognostic indicator). Negative for progesterone receptors (unfavorable prognostic indicator). Positive for overexpression of UXN4vyv. B. Right breast 2 o clock, biopsy: Invasive ductal carcinoma, grade 2-3/3. Then underwent right breast modified mastectomy along with axillary lymph node dissection on 04/02/2019. Pathology: MICROSCOPIC DIAGNOSIS Right breast, modified radical mastectomy: Invasive ductal carcinoma x2. Ductal carcinoma in situ. Five out of five lymph nodes, negative for metastatic carcinoma. Hyalinized fibroadenomas x2. See cancer summary below. SJ:breann 04/05/19 INVASIVE BREAST CANCER SUMMARY: Specimen - total breast (including nipple and skin). Procedure - total mastectomy (including nipple and skin). Lymph node sampling - axillary dissection Specimen integrity - single, intact specimen Specimen laterality - right Tumor site - inner quadrant Tumor size: size of largest invasive carcinoma - 3.5 x 1.5 x 1.5 cm Tumor focality - two foci of invasive carcinoma Size of individual foci - 3.5 x 1.5 x 1.5 cm and 2 x 2 x 1 cm Macroscopic and Microscopic extent of tumor: Skin - invasive carcinoma does not invade into the dermis or epidermis. Nipple - DCIS does not involve nipple epidermis. Skeletal muscle - Skeletal muscle is present and is free of carcinoma. Ductal carcinoma in situ (DCIS) - present Extensive intraductal component (EIC) - negative Estimated size (extent) of DCIS - DCIS is present in the area of invasive carcinoma and comprise about 5% of the total tumor volume. Number of blocks with DCIS - 7 Number of blocks examined (breast tissue) - 16 Architectural patterns - cribriform and comedo Nuclear grade - grade 3 (high) Necrosis - present, central (expansive comedo necrosis) Lobular carcinoma in situ (LCIS) - not identified Histologic type of invasive carcinoma - invasive ductal carcinoma (no special type) Histologic Grade (Yohan grade): Glandular/tubular differentiation - score 3 Nuclear pleomorphism - score 3 Mitotic count - score 2 Overall grade - 3 (score of 8) Both tumor show similar morphologic features. Margins - larger focus of invasive carcinoma is present at the closest posterior margin of the specimen. - smaller focus of invasive carcinoma is 1.7 cm away from closest superior margin. - Margins are free of ductal carcinoma in situ. Treatment effect: Response to presurgical (neoadjuvant) therapy - no known presurgical therapy. Lymph-Vascular invasion - not identified Dermal lymph-vascular invasion - not identified Lymph nodes: Number of sentinel lymph nodes examined - 0 Total number of lymph nodes examined (sentinel and nonsentinel) - 5 Number of lymph nodes with macrometastases, micrometastases and isolated tumor cells - 0 Distant metastasis - not applicable Additional pathologic findings - hyalinized fibroadenomas x2 with focal calcifications. See comment. - Dense fibrosis and lobular involution. Ancillary studies - previously performed on section of tumor ([id number] / [id number]). ER - positive (15%, weak intensity) WV - negative (0%) Her2 krista - positive (3+) Microcalcifications - present in both invasive carcinoma and non-neoplastic tissue. Clinical history - Please make reference to previous specimen ([id number]) right breast at 1 o clock and right breast at 2 o clock core biopsies with diagnosis of invasive ductal carcinoma. PATHOLOGIC STAGE: pT2(m) pN0 Mx Evidently the larger focus of cancer was down to the chest wall muscle. Other significant past medical history was asymptomatic decline in ejection fraction 1 receiving Herceptin. Serial echocardiograms--March 2016 at that time he demonstrated ejection fraction of 72%. Another echocardiogram in September 2016 demonstrated ejection fraction of 55%. In November 2016 was 50% and in May 2017 was 45% with mild global hypokinesis. managed with beta-ruth and ARB. Most recent echocardiogram from May 2018 revealed normal left ventricular size with systolic function at lower limits of normal estimated at 53%. The global longitudinal strain was -19.4% (normal) cis. Stage I diastolic dysfunction was observed. Pulmonary artery pressure was 27 mmHg. ---- Had staging CTs scans that suggested lung metastases. Not able to biopsy. Previous therapy: 1) Taxotere/Herceptin/Perjeta. 2) Herceptin/Perjeta. Discontinued 01/2021 for progressive disease. 3) Kadcyla. 02/2021 through 07/2021. Discontinued secondary to significant worsening of neuropathy. 4) SBRT DYLAN metastasis completed 03/02/2023. 5) Enhertu. 6) RT right lung 09/30/2023. Current therapy: 1) Capecitabine, tukatinib and trastuzumab. Interim history: Kenalog continues to help the feet. Uses morning and evening. No symptoms of cardiomyopathy. Stable dyspnea with exertion. No cough. Neuropathy symptoms are stable. Still uses a cane to help with balance. Weight now stable. Appetite has been normal. No nausea. No diarrhea this past cycle. Subcutaneous metastasis on the anterior lower chest wall remains no longer palpable to her. PMH, medications and allergies personally reviewed by me today. Any changes documented in appropriate section. ROS: Constitutional: Denies episodes of fever and night sweats. Not significantly fatigued. Normal appetite. Neuro: Denies [place], vertigo, dizziness and imbalance. HEENT: No recent change in voice, vision or hearing. Resp: See above. CVS: See above. GI: Denies dysgeusia. Denies symptoms of stomatitis. Denies dysphagia and odynophagia. Denies abdominal pain. : Denies dysuria or gross hematuria. No symptoms of bladder outlet obstruction. Endo: Denies hot flashes. Denies polyuria and polydipsia. Denies heat and cold intolerance. Musculoskeletal: Denies bone, back, joint and muscular pain. Derm: See above. Heme: Denies unusual bleeding and unexplained bruising. Psych: Normal mood. PHYSICAL EXAM: Vitals: Blood pressure 120/73, pulse 61, temperature 36.8 C (98.2 F), temperature source Temporal, weight 78.9 kg (174 lb), SpO2 97%. Well-appearing and in no acute distress. EYES: Sclerae are anicteric bilaterally. LYMPHATIC: There is no palpable cervical, supraclavicular adenopathy. CARDIOVASCULAR: Rhythm is regular. BREAST: Not examined today. ABDOMEN: The abdomen is nondistended. Extremities: No swelling or edema. SKIN: Continued resolution of subcutaneous metastasis near xyphoid. ASSESSMENT/PLAN: (C50.311, Z17.0) Malignant neoplasm of lower-inner quadrant of right breast of female, estrogen receptor positive (HCC) (primary encounter diagnosis) (C79.51) Bone metastases (HCC) (C78.01, C78.02) Malignant neoplasm metastatic to both lungs (HCC) (I42.7, T45.1X5A) Chemotherapy-induced cardiomyopathy (HCC) Assessment: -Originally pT2 pN0(sln) MX ER positive (9%, very weak) WV negative HER overexpressed stage IIA invasive ductal carcinoma the right breast. -Recurrent pT2(m) pN0 (none of 5 LNs) MX ER +(15%, weak intensity)/WV negative (0%) HER2 3+ invasive ductal carcinoma the right breast while on AI (anastrozole). Plan: -Influenza vaccination tomorrow. -Okay for Herceptin Tuesday. -Continue capecitabine. -Continue tucatinib. -Continue metoprolol to 25 mg BID. -Zometa every 3 months. -CTs in about 2 months. -Echo in about 3 months. -Continue follow-up with Dr. Galeano. (G62.0, T45.1X5A) Chemotherapy-induced neuropathy (HCC) Assessment: -No subjective change. -Symptoms remain well controlled with Lyrica. Plan: -Continue Lyrica 150 mg twice daily. (L27.0) Drug rash Assessment: -Kenalog 0.1% cream working very well especially for symptoms in the feet. Plan: -Continue Kenalog 0.1% cream. -Continue moisturizer. (Z86.39) History of thyroid nodule Stable on US fall 2022 and recent PET 08/2023. One year follow up recommended. Portions of this documentation were copied and pasted from my previous office visit note dated 05/23/2024 in order to provide a cohesive continuity of the history. The note has been reviewed and edited and updated as necessary. Rip Rivers DO documented in this encounter [facility] 06-04-2024 History of Presen t illness Narrative [facility] Assessment Medication(s): Capecitabine Patient's current medication list and adherence status to current therapy were reviewed by Specialty Pharmacy clinical pharmacist to identify any new drug interactions or non-compliance to therapy. Therapy continues to be appropriate for disease, patient response, and medical condition. Verification of therapeutic benefit and effectiveness with current therapy was completed. Adverse events, barriers in adherence, and side effects were assessed and addressed if applicable. Will proceed with refill with no changes in therapy - patient progressing towards achieving therapeutic goals based on medication-specific laboratory parameters, disease state markers and outcomes. Office/provider notes have been reviewed prior to dispensing the medication. 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 Patient confirmed: Yes Med/dose confirmed: Yes Supplies needed: No supplies needed Missed doses: No Estimated days supply on hand: 0 Next cycle/dose due: 06/11/24 Copay amount: 0 Delivery method: FedEx Signature required: Waived on patient request Delivery address: [address] [facility] [id number] Delivery date: 06/08/24 Questions or concerns for the pharmacist?: No Did you have any side effects believed to be related to this medication, that resulted in hospitalization?: No Current Outpatient Medications on File Prior to Visit Medication Sig capecitabine (XELODA) 500 mg tablet Take 3 tablets (1500 mg) in the morning and 2 tablets (1000mg) in the evening by mouth with food for 14 days then 7 days off. metoprolol tartrate, short acting, (LOPRESSOR) 25 mg tablet Take 1 tablet by mouth twice daily triamcinolone acetonide (KENALOG) 0.1 % cream Apply to affected area two times a day. iv contrast (will be provided with radiology test) CT ABD/PEL -Inject, intravenously, once for 1 dose.No IV access, insert saline lock prior to the beginning of sedation, infusion, injection of imaging exam. Discontinue saline lock post exam. If Pt. has a central line or IVAD, may access for administration according to line specific nursing protocol. Once exam is complete flush line and de-access according to line specific nursing protocol in the CT contrast administration guidelines link. enteric contrast (will be provided with radiology test) For CT ABD/PEL W IVCON Routine order Administer, As Directed One Time Only, via Oral, Rectal, both Oral and Rectal, Enteric Tube, Stoma or Indwelling Catheter, Enteric Contrast as designated per enteric contrast guidelines iv contrast (will be provided with radiology test) CT Chest W -Inject, intravenously, once for 1 dose.No IV access, insert saline lock prior to the beginning of sedation, infusion, injection of imaging exam. Discontinue saline lock post exam. If Pt. has a central line or IVAD, may access for administration according to line specific nursing protocol. Once exam is complete flush line and de-access according to line specific nursing protocol in the CT contrast administration guidelines link. pregabalin (LYRICA) 150 mg capsule Take 1 capsule by mouth two times a day for 180 days. tucatinib (TUKYSA) 50 mg tablet Take 1 tablet (50 mg) by mouth two times a day with 1 other tucatinib prescription for 200 mg total. tucatinib (TUKYSA) 150 mg tablet Take 1 tablet (150 mg) by mouth two times a day with 1 other tucatinib prescription for 200 mg total. promethazine (PHENERGAN) 25 mg tablet Take 1 tablet by mouth every 6 hours as needed. FOR NAUSEA loratadine (CLARITIN) 10 mg tablet Take 10 mg by mouth once daily. losartan (COZAAR) 50 mg tablet Take 2 tablets by mouth once daily. ascorbic acid/bioflavonoids (MARY C ORAL) Take 500 mg by mouth once daily. loperamide HCl (IMODIUM) 2 mg tab Take 2 mg by mouth as needed. multivitamin tablet Take 1 tablet by mouth once daily. diphenhydrAMINE (BENADRYL) 25 mg tablet Take 25 mg by mouth twice daily as needed. No current facility-administered medications on file prior to visit. [facility] SPECIAL[facility] CLINICAL ASSESSMENT - HEMATOLOGY ONCOLOGY V6: Assessment to use: Refill Date of influenza vaccination reminder: 02/21/2024 Date of most recent vaccination assessment: 02/21/2024 Treatment Plan Information: Diagnosis: metastatic recurrence of ER+. WV-, Her2+ breast cancer Previous treatment(s): - Right sided lumpectomy and right axillary sentinel lymph node dissection - AC followed by paclitaxel/Herceptin - Adjuvant radiation - Nerlynx - Taxotere/Herceptin/Perjeta - Kadcyla - SBRT - Enhertu - RT Tx Plan: Herceptin + Capecitabine + Tukysa Starting Dose/Titration: Capecitabine 1500 mg BID for 14 days on, followed by 7 days off - 750 mg/m2 x 1.88 m2 = 1410 mg -> 1500 mg (dose reduced d/t renal function) - Confirmed with Dr. Rivers Administration: Take with water within 30 minutes after a meal. Swallow tablets whole. Warnings: include but are not limited to bone marrow suppression, cardiotoxicity (more common in pt with hx of coronary artery disease), GI toxicity, xcvc-wcu-vjmn syndrome (onset ~79 days), hepatotoxicity (onset ~64 days - hyperbilirubinemia) Adverse reactions: include but are not limited to fatigue, rash, N/V/D/C (diarrhea: onset ~34 days, lasting ~ 5 days - risk dehydration), mucositis Emetogenicity: min to low (<30% frequency of emesis) - NCCN Monitoring: - CBC with differential, hepatic function, and renal function should be monitored. - Monitor INR closely if receiving concomitant warfarin. - Monitor for diarrhea, dehydration, hand-foot syndrome, Orantes-Kristofer syndrome, toxic epidermal necrolysis, stomatitis, and cardiotoxicity. - Monitor adherence. Drug-Drug Interactions: none Baseline: - CrCl 47 ml/min using adjusted body weight. 63 ml/min using actual Est. Tx Plan Start Date: No information available Estimated Start Date Info: Per Dr. Rivers's discretion Est. Estimated Treatment Duration: Until disease progression or unacceptable toxicity Crystal Fuentes documented in this encounter [facility] 05-29-2024 Telephone encounter Note SOCIAL WORK FOLLOW UP NOTE: [facility] Enrollment form drafted and awaiting signature from pt and provider. Will fax once completed. SHANE Leahy [facility] 05-29-2024 Miscellaneous Notes SOCIAL WORK FOLLOW UP NOTE: [facility] CENTER Enrollment form drafted and awaiting signature from pt and provider. Will fax once completed. SHANE Leahy Pt is needing re enrollment form for 2024 for Tukysa. New form can be found on [employer]. Please fax to [phone]. Thank you documented in this encounter [facility] 05-28-2024 Telephone encounter Note Pt is needing re enrollment form for 2024 for Tukysa. New form can be found on [employer]. Please fax to [phone]. Thank you [facility] 05-23-2024 History of Presen t illness Narrative Oncologic problem(s): 1) Metastatic recurrence of ER positive, WV negative, HER2 positive breast cancer. 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 HPI: The patient is a 68 year old female who discovered a lump on the lower inner portion of her right breast in the fall of 2015. She was seen at [facility] and underwent a right sided core biopsy on 02/16/2016 by interventional radiology. The tissue specimen demonstrated invasive ductal carcinoma, Sorento grade 2. ER positive (90%, very weak) and WV negative (0%). HER-2 was quantified at 3+. [...] 3) Nerlyx-stopped d/t diarrhea. Last dose of neratinib . I'm never taking that again. Seen here in early March for complaint of right breast fullness and tenderness. Diagnostic mammogram done on 03/07/2019 did not demonstrate a mass within the breast however on ultrasound there was a 0.8 cm x 0.6 cm x 0.9 cm lobulated mass with an indistinct margin in the right breast at 1:00 anterior depth 6 cm in the nipple. It was lobulated and hypoechoic with internal echoes. This corresponded to the tender area. There was also a 1.2 x 0.9 x 2 cm lobulated mass with a circumscribed margin in the right breast at 2:00 anterior depth 7 cm from the nipple. It also was hypoechoic with internal echoes. And it also was tender on exam. Patient next underwent ultrasound-guided right breast needle core biopsy 2 on 03/22/2019. Pathology: MICROSCOPIC DIAGNOSIS A. Right breast at 1 o clock, core biopsy: Invasive ductal carcinoma with the following characteristics: Maximal length - 10 mm Nuclear grade - 3/3 Other findings - ductal carcinoma in situ, nuclear 3/3 with focal comedo necrosis. B. Right breast at 2 o clock, core biopsy: Invasive ductal carcinoma with the following characteristics: Maximal length - 1.2 mm Nuclear grade - 2-3/3 ANTIBODY / CLONE RESULT Block A P53 (DO-7) positive, >90% Ki-67 (30-9) positive, 12% CK8 (25xydsF07) positive CK5-6 (D5 & 1684) negative Calponin-1 (YI290Q) negative P40 (BC28) negative E-Cad (ECH-6) positive MORPHOMETRIC ANALYSIS ER (clone 6F11) 15%, weak intensity WV (clone 16/1E2) 0% Her-2Neu (clone CB11) 3+ Block B Calponin-1 (TL938T) negative P40 (BC28) negative CK8 ([id number]) positive INTERPRETATION: A. Right breast 1 o clock, biopsy: Invasive ductal carcinoma, grade 3/3. Positive for estrogen receptors (favorable prognostic indicator). Negative for progesterone receptors (unfavorable prognostic indicator). Positive for overexpression of KYH8aie. B. Right breast 2 o clock, biopsy: Invasive ductal carcinoma, grade 2-3/3. Then underwent right breast modified mastectomy along with axillary lymph node dissection on 04/02/2019. Pathology: MICROSCOPIC DIAGNOSIS Right breast, modified radical mastectomy: Invasive ductal carcinoma x2. Ductal carcinoma in situ. Five out of five lymph nodes, negative for metastatic carcinoma. Hyalinized fibroadenomas x2. See cancer summary below. SJ:breann 04/05/19 INVASIVE BREAST CANCER SUMMARY: Specimen - total breast (including nipple and skin). Procedure - total mastectomy (including nipple and skin). Lymph node sampling - axillary dissection Specimen integrity - single, intact specimen Specimen laterality - right Tumor site - inner quadrant Tumor size: size of largest invasive carcinoma - 3.5 x 1.5 x 1.5 cm Tumor focality - two foci of invasive carcinoma Size of individual foci - 3.5 x 1.5 x 1.5 cm and 2 x 2 x 1 cm Macroscopic and Microscopic extent of tumor: Skin - invasive carcinoma does not invade into the dermis or epidermis. Nipple - DCIS does not involve nipple epidermis. Skeletal muscle - Skeletal muscle is present and is free of carcinoma. Ductal carcinoma in situ (DCIS) - present Extensive intraductal component (EIC) - negative Estimated size (extent) of DCIS - DCIS is present in the area of invasive carcinoma and comprise about 5% of the total tumor volume. Number of blocks with DCIS - 7 Number of blocks examined (breast tissue) - 16 Architectural patterns - cribriform and comedo Nuclear grade - grade 3 (high) Necrosis - present, central (expansive comedo necrosis) Lobular carcinoma in situ (LCIS) - not identified Histologic type of invasive carcinoma - invasive ductal carcinoma (no special type) Histologic Grade (Sorento grade): Glandular/tubular differentiation - score 3 Nuclear pleomorphism - score 3 Mitotic count - score 2 Overall grade - 3 (score of 8) Both tumor show similar morphologic features. Margins - larger focus of invasive carcinoma is present at the closest posterior margin of the specimen. - smaller focus of invasive carcinoma is 1.7 cm away from closest superior margin. - Margins are free of ductal carcinoma in situ. Treatment effect: Response to presurgical (neoadjuvant) therapy - no known presurgical therapy. Lymph-Vascular invasion - not identified Dermal lymph-vascular invasion - not identified Lymph nodes: Number of sentinel lymph nodes examined - 0 Total number of lymph nodes examined (sentinel and nonsentinel) - 5 Number of lymph nodes with macrometastases, micrometastases and isolated tumor cells - 0 Distant metastasis - not applicable Additional pathologic findings - hyalinized fibroadenomas x2 with focal calcifications. See comment. - Dense fibrosis and lobular involution. Ancillary studies - previously performed on section of tumor ([id number] / [id number]). ER - positive (15%, weak intensity) WV - negative (0%) Her2 krista - positive (3+) Microcalcifications - present in both invasive carcinoma and non-neoplastic tissue. Clinical history - Please make reference to previous specimen ([id number]) right breast at 1 o clock and right breast at 2 o clock core biopsies with diagnosis of invasive ductal carcinoma. PATHOLOGIC STAGE: pT2(m) pN0 Mx Evidently the larger focus of cancer was down to the chest wall muscle. Other significant past medical history was asymptomatic decline in ejection fraction 1 receiving Herceptin. Serial echocardiograms--March 2016 at that time he demonstrated ejection fraction of 72%. Another echocardiogram in September 2016 demonstrated ejection fraction of 55%. In November 2016 was 50% and in May 2017 was 45% with mild global hypokinesis. managed with beta-ruth and ARB. Most recent echocardiogram from May 2018 revealed normal left ventricular size with systolic function at lower limits of normal estimated at 53%. The global longitudinal strain was -19.4% (normal) cis. Stage I diastolic dysfunction was observed. Pulmonary artery pressure was 27 mmHg. ---- Had staging CTs scans that suggested lung metastases. Not able to biopsy. Previous therapy: 1) Taxotere/Herceptin/Perjeta. 2) Herceptin/Perjeta. Discontinued 01/2021 for progressive disease. 3) Kadcyla. 02/2021 through 07/2021. Discontinued secondary to significant worsening of neuropathy. 4) SBRT DYLAN metastasis completed 03/02/2023. 5) Enhertu. 6) RT right lung 09/30/2023. Current therapy: 1) Capecitabine, tukatinib and trastuzumab. Interim history: Kenalog has really helped the feet. Still getting diarrhea on some days. Controlled with Imodium. No symptoms of cardiomyopathy. Stable dyspnea with exertion. Saw cardiology earlier this week. Echo okay--normal myocardial strain. Scheduled for annual follow up. Neuropathy symptoms are stable. Still uses a cane to help with balance. Weight loss noted. Appetite has been normal. No nausea. Not having diarrhea on a daily basis as noted above. If it occurs, easily controlled with Imodium. No complaints of abdominal pain. Subcutaneous metastasis on the anterior lower chest wall remains no longer palpable to her. PMH, medications and allergies personally reviewed by me today. Any changes documented in appropriate section. ROS: Constitutional: Denies episodes of fever and night sweats. Not significantly fatigued. Normal appetite. Neuro: Denies [place], vertigo, dizziness and imbalance. HEENT: No recent change in voice, vision or hearing. Resp: See above. CVS: See above. GI: Denies dysgeusia. Denies symptoms of stomatitis. Denies dysphagia and odynophagia. Denies abdominal pain. : Denies dysuria or gross hematuria. No symptoms of bladder outlet obstruction. Endo: Denies hot flashes. Denies polyuria and polydipsia. Denies heat and cold intolerance. Musculoskeletal: Denies bone, back, joint and muscular pain. Derm: See above. Heme: Denies unusual bleeding and unexplained bruising. Psych: Normal mood. PHYSICAL EXAM: Vitals: Blood pressure 125/79, pulse 77, temperature 36.8 C (98.2 F), temperature source Temporal, weight 78.7 kg (173 lb 8 oz), SpO2 97%. Well-appearing and in no acute distress. EYES: Sclerae are anicteric bilaterally. LYMPHATIC: There is no palpable cervical, supraclavicular adenopathy. CARDIOVASCULAR: Rhythm is regular. BREAST: Not examined today. ABDOMEN: The abdomen is nondistended. Extremities: No swelling or edema. SKIN: Continued resolution of subcutaneous metastasis near xyphoid. ASSESSMENT/PLAN: (C50.311, Z17.0) Malignant neoplasm of lower-inner quadrant of right breast of female, estrogen receptor positive (HCC) (primary encounter diagnosis) (C79.51) Bone metastases (HCC) (C78.01, C78.02) Malignant neoplasm metastatic to both lungs (HCC) (I42.7, T45.1X5A) Chemotherapy-induced cardiomyopathy (HCC) Assessment: -Originally pT2 pN0(sln) MX ER positive (9%, very weak) WV negative HER overexpressed stage IIA invasive ductal carcinoma the right breast. -Recurrent pT2(m) pN0 (none of 5 LNs) MX ER +(15%, weak intensity)/WV negative (0%) HER2 3+ invasive ductal carcinoma the right breast while on AI (anastrozole). Posterior margin positive--more than just focal according to pathologist. Pectoralis fascia rem she calixto. Staging workup revealed multiple lung metastases, not biopsy proven. -Tolerated Enhertu overall very well but recent progressive disease with right lung metastasis. -Reviewed CT scans. Stable disease. Plan: -Okay for Herceptin Tuesday. -Continue capecitabine. -Continue tucatinib. -Continue metoprolol to 25 mg BID. -Zometa every 3 months. -CTs in about 3 months. -Echo in about 2 months. -Continue follow-up with Dr. Galeano. -Previously stopped IBU for increase in serum Cr. (G62.0, T45.1X5A) Chemotherapy-induced neuropathy (HCC) Assessment: -No subjective change. -Symptoms remain well controlled with Lyrica. Plan: -Continue Lyrica 150 mg twice daily. -Renewed handicap placard. (L27.0) Drug rash Assessment: -Kenalog 0.1% cream working very well especially for symptoms in the feet. Plan: -Continue Kenalog 0.1% cream. -Continue moisturizer. -Pumice stone to heavily callused areas. (R63.4) Abnormal weight loss Assessment: -Approximate 5 and half pound weight loss since mid March. -We discussed ways to increase protein and fat calorie intake. She tolerates dairy products fairly well but can have problems with diarrhea if overdoes it. I recommended increasing foods such as ice cream and peanut butter, shakes with heavy whipping cream. Plan: -As above. -Oncology nutrition consultation if above doesn't help. (Z86.39) History of thyroid nodule Stable on US fall 2022 and recent PET 08/2023. One year follow up recommended. Portions of this documentation were copied and pasted from my previous office visit note dated 04/22/2024 in order to provide a cohesive continuity of the history. The note has been reviewed and edited and updated as necessary. I spent a total of 20 minutes on the date of the service which included [id number] patient care, completing clinical documentation, performing a medically appropriate examination, counseling and educating the patient/family/caregiver, ordering medications, tests, or procedures, communicating with other HCPs (not separately reported), and communicating results to the patient/family/caregiver. Rip Rivers DO documented in this encounter [facility] 05-23-2024 History of Presen t illness Narrative Patient is here for IVAD port flush/blood draw. IVAD is located in right upper chest. Site cleansed with Chloraprep IVAD accessed with a #20 gauge 3/4 non-coring Gripper needle Flush with 5cc's Normal Saline. Blood Return: Good. 10 cc's blood aspirated and discarded. Blood drawn for CBC and CMP. Flushed with: 20 ml Normal Saline. Non-coring needle removed. Paper tape applied to puncture site. Site negative for redness, edema or tenderness. Patient tolerated procedure well. Ana Velásquez RN documented in this encounter [facility] 05-14-2024 History of Presen t illness Narrative [facility] Refill Assessment Medication(s): Capecitabine Patient's current medication list and adherence status to current therapy were reviewed by Specialty Pharmacy clinical pharmacist to identify any new drug interactions or non-compliance to therapy. Therapy continues to be appropriate for disease, patient response, and medical condition. Verification of therapeutic benefit and effectiveness with current therapy was completed. Adverse events, barriers in adherence, and side effects were assessed and addressed if applicable. Will proceed with refill with no changes in therapy - patient progressing towards achieving therapeutic goals based on medication-specific laboratory parameters, disease state markers and outcomes. Office/provider notes have been reviewed prior to dispensing the medication. 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 Patient confirmed: Yes Med/dose confirmed: Yes Supplies needed: No supplies needed Missed doses: Yes Count of missed doses: 1 Reason for missed doses: Forgot dose Estimated days supply on hand: 0 (#3 on hand) Next cycle/dose due: 05/21/24 Copay amount: 0 Delivery method: FedEx Signature required: Waived on patient request Delivery address: [address] [place] [id number] Delivery date: 05/17/24 Questions or concerns for the pharmacist?: No Did you have any side effects believed to be related to this medication, that resulted in hospitalization?: No Current Outpatient Medications on File Prior to Visit Medication Sig metoprolol tartrate, short acting, (LOPRESSOR) 25 mg tablet Take 1 tablet by mouth twice daily triamcinolone acetonide (KENALOG) 0.1 % cream Apply to affected area two times a day. iv contrast (will be provided with radiology test) CT ABD/PEL -Inject, intravenously, once for 1 dose.No IV access, insert saline lock prior to the beginning of sedation, infusion, injection of imaging exam. Discontinue saline lock post exam. If Pt. has a central line or IVAD, may access for administration according to line specific nursing protocol. Once exam is complete flush line and de-access according to line specific nursing protocol in the CT contrast administration guidelines link. enteric contrast (will be provided with radiology test) For CT ABD/PEL W IVCON Routine order Administer, As Directed One Time Only, via Oral, Rectal, both Oral and Rectal, Enteric Tube, Stoma or Indwelling Catheter, Enteric Contrast as designated per enteric contrast guidelines iv contrast (will be provided with radiology test) CT Chest W -Inject, intravenously, once for 1 dose.No IV access, insert saline lock prior to the beginning of sedation, infusion, injection of imaging exam. Discontinue saline lock post exam. If Pt. has a central line or IVAD, may access for administration according to line specific nursing protocol. Once exam is complete flush line and de-access according to line specific nursing protocol in the CT contrast administration guidelines link. capecitabine (XELODA) 500 mg tablet Take 3 tablets (1500 mg) in the morning and 2 tablets (1000mg) in the evening by mouth with food for 14 days then 7 days off. pregabalin (LYRICA) 150 mg capsule Take 1 capsule by mouth two times a day for 180 days. tucatinib (TUKYSA) 50 mg tablet Take 1 tablet (50 mg) by mouth two times a day with 1 other tucatinib prescription for 200 mg total. tucatinib (TUKYSA) 150 mg tablet Take 1 tablet (150 mg) by mouth two times a day with 1 other tucatinib prescription for 200 mg total. promethazine (PHENERGAN) 25 mg tablet Take 1 tablet by mouth every 6 hours as needed. FOR NAUSEA loratadine (CLARITIN) 10 mg tablet Take 10 mg by mouth once daily. losartan (COZAAR) 50 mg tablet Take 2 tablets by mouth once daily. ascorbic acid/bioflavonoids (MARY C ORAL) Take 500 mg by mouth once daily. loperamide HCl (IMODIUM) 2 mg tab Take 2 mg by mouth as needed. multivitamin tablet Take 1 tablet by mouth once daily. diphenhydrAMINE (BENADRYL) 25 mg tablet Take 25 mg by mouth twice daily as needed. No current facility-administered medications on file prior to visit. [facility] CLINICAL ASSESSMENT - HEMATOLOGY ONCOLOGY V6: Assessment to use: Refill Date of influenza vaccination reminder: 02/21/2024 Date of most recent vaccination assessment: 02/21/2024 Treatment Plan Information: Diagnosis: metastatic recurrence of ER+. [place]-, Her2+ breast cancer Previous treatment(s): - Right sided lumpectomy and right axillary sentinel lymph node dissection - AC followed by paclitaxel/Herceptin - Adjuvant radiation - Nerlynx - Taxotere/Herceptin/Perjeta - Kadcyla - SBRT - Enhertu - RT Tx Plan: Herceptin + Capecitabine + Tukysa Starting Dose/Titration: Capecitabine 1500 mg BID for 14 days on, followed by 7 days off - 750 mg/m2 x 1.88 m2 = 1410 mg -> 1500 mg (dose reduced d/t renal function) - Confirmed with Dr. Rivers Administration: Take with water within 30 minutes after a meal. Swallow tablets whole. Warnings: include but are not limited to bone marrow suppression, cardiotoxicity (more common in pt with hx of coronary artery disease), GI toxicity, jgot-ycm-pelz syndrome (onset ~79 days), hepatotoxicity (onset ~64 days - hyperbilirubinemia) Adverse reactions: include but are not limited to fatigue, rash, N/V/D/C (diarrhea: onset ~34 days, lasting ~ 5 days - risk dehydration), mucositis Emetogenicity: min to low (<30% frequency of emesis) - NCCN Monitoring: - CBC with differential, hepatic function, and renal function should be monitored. - Monitor INR closely if receiving concomitant warfarin. - Monitor for diarrhea, dehydration, hand-foot syndrome, Orantes-Kristofer syndrome, toxic epidermal necrolysis, stomatitis, and cardiotoxicity. - Monitor adherence. Drug-Drug Interactions: none Baseline: - CrCl 47 ml/min using adjusted body weight. 63 ml/min using actual Est. Tx Plan Start Date: No information available Estimated Start Date Info: Per Dr. Rivers's discretion Est. Estimated Treatment Duration: Until disease progression or unacceptable toxicity Shanna Davis documented in this encounter [facility] 05-04-2024 History of Presen t illness Narrative . documented in this encounter [facility] 05-04-2024 Telephone encounter Note Prescription Refill Information The patient has been identified by name and date of : Yes Caregiver verified no other encounters exist for this prescription request: Yes Caregiver confirmed with patient/requestor that no other refills are due, in the near future, with this provider at this time: Yes The last office visit in the department: 05/02/2024 Does the patient have a future office visit with this provider/department: Yes Requested Prescriptions Pending Prescriptions Disp Refills metoprolol tartrate, short acting, (LOPRESSOR) 25 mg tablet [Pharmacy Med Name: Metoprolol Tartrate 25 MG Oral Tablet] 180 tablet 0 Sig: Take 1 tablet by mouth twice daily Chrissie Elliott LPN May 04, 2024 7:52 AM [facility] 05-04-2024 Miscellaneous Notes Prescription Refill Information The patient has been identified by name and date of : Yes Caregiver verified no other encounters exist for this prescription request: Yes Caregiver confirmed with patient/requestor that no other refills are due, in the near future, with this provider at this time: Yes The last office visit in the department: 05/02/2024 Does the patient have a future office visit with this provider/department: Yes Requested Prescriptions Pending Prescriptions Disp Refills metoprolol tartrate, short acting, (LOPRESSOR) 25 mg tablet [Pharmacy Med Name: Metoprolol Tartrate 25 MG Oral Tablet] 180 tablet 0 Sig: Take 1 tablet by mouth twice daily Chrissie Elliott LPN May 04, 2024 7:52 AM documented in this encounter [facility] 05-02-2024 History of Presen t illness Narrative Oncologic problem(s): 1) Metastatic recurrence of ER positive, WV negative, HER2 positive breast cancer. 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 HPI: The patient is a 68 year old female who discovered a lump on the lower inner portion of her right breast in the fall of 2015. She was seen at [facility] and underwent a right sided core biopsy on 02/16/2016 by interventional radiology. The tissue specimen demonstrated invasive ductal carcinoma, Sorento grade 2. ER positive (90%, very weak) and WV negative (0%). HER-2 was quantified at 3+. [...] 3) Nerlyx-stopped d/t diarrhea. Last dose of neratinib . I'm never taking that again. Seen here in early March for complaint of right breast fullness and tenderness. Diagnostic mammogram done on 03/07/2019 did not demonstrate a mass within the breast however on ultrasound there was a 0.8 cm x 0.6 cm x 0.9 cm lobulated mass with an indistinct margin in the right breast at 1:00 anterior depth 6 cm in the nipple. It was lobulated and hypoechoic with internal echoes. This corresponded to the tender area. There was also a 1.2 x 0.9 x 2 cm lobulated mass with a circumscribed margin in the right breast at 2:00 anterior depth 7 cm from the nipple. It also was hypoechoic with internal echoes. And it also was tender on exam. Patient next underwent ultrasound-guided right breast needle core biopsy 2 on 03/22/2019. Pathology: MICROSCOPIC DIAGNOSIS A. Right breast at 1 o clock, core biopsy: Invasive ductal carcinoma with the following characteristics: Maximal length - 10 mm Nuclear grade - 3/3 Other findings - ductal carcinoma in situ, nuclear 3/3 with focal comedo necrosis. B. Right breast at 2 o clock, core biopsy: Invasive ductal carcinoma with the following characteristics: Maximal length - 1.2 mm Nuclear grade - 2-3/3 ANTIBODY / CLONE RESULT Block A P53 (DO-7) positive, >90% Ki-67 (30-9) positive, 12% CK8 ([id number]) positive CK5-6 (D5 & 1684) negative Calponin-1 (NX910G) negative P40 (BC28) negative E-Cad (ECH-6) positive MORPHOMETRIC ANALYSIS ER (clone 6F11) 15%, weak intensity WV (clone 16/1E2) 0% Her-2Neu (clone CB11) 3+ Block B Calponin-1 (XO641E) negative P40 (BC28) negative CK8 ([id number]) positive INTERPRETATION: A. Right breast 1 o clock, biopsy: Invasive ductal carcinoma, grade 3/3. Positive for estrogen receptors (favorable prognostic indicator). Negative for progesterone receptors (unfavorable prognostic indicator). Positive for overexpression of [id number]. B. Right breast 2 o clock, biopsy: Invasive ductal carcinoma, grade 2-3/3. Then underwent right breast modified mastectomy along with axillary lymph node dissection on 04/02/2019. Pathology: MICROSCOPIC DIAGNOSIS Right breast, modified radical mastectomy: Invasive ductal carcinoma x2. Ductal carcinoma in situ. Five out of five lymph nodes, negative for metastatic carcinoma. Hyalinized fibroadenomas x2. See cancer summary below. SJ:breann 04/05/19 INVASIVE BREAST CANCER SUMMARY: Specimen - total breast (including nipple and skin). Procedure - total mastectomy (including nipple and skin). Lymph node sampling - axillary dissection Specimen integrity - single, intact specimen Specimen laterality - right Tumor site - inner quadrant Tumor size: size of largest invasive carcinoma - 3.5 x 1.5 x 1.5 cm Tumor focality - two foci of invasive carcinoma Size of individual foci - 3.5 x 1.5 x 1.5 cm and 2 x 2 x 1 cm Macroscopic and Microscopic extent of tumor: Skin - invasive carcinoma does not invade into the dermis or epidermis. Nipple - DCIS does not involve nipple epidermis. Skeletal muscle - Skeletal muscle is present and is free of carcinoma. Ductal carcinoma in situ (DCIS) - present Extensive intraductal component (EIC) - negative Estimated size (extent) of DCIS - DCIS is present in the area of invasive carcinoma and comprise about 5% of the total tumor volume. Number of blocks with DCIS - 7 Number of blocks examined (breast tissue) - 16 Architectural patterns - cribriform and comedo Nuclear grade - grade 3 (high) Necrosis - present, central (expansive comedo necrosis) Lobular carcinoma in situ (LCIS) - not identified Histologic type of invasive carcinoma - invasive ductal carcinoma (no special type) Histologic Grade (Sorento grade): Glandular/tubular differentiation - score 3 Nuclear pleomorphism - score 3 Mitotic count - score 2 Overall grade - 3 (score of 8) Both tumor show similar morphologic features. Margins - larger focus of invasive carcinoma is present at the closest posterior margin of the specimen. - smaller focus of invasive carcinoma is 1.7 cm away from closest superior margin. - Margins are free of ductal carcinoma in situ. Treatment effect: Response to presurgical (neoadjuvant) therapy - no known presurgical therapy. Lymph-Vascular invasion - not identified Dermal lymph-vascular invasion - not identified Lymph nodes: Number of sentinel lymph nodes examined - 0 Total number of lymph nodes examined (sentinel and nonsentinel) - 5 Number of lymph nodes with macrometastases, micrometastases and isolated tumor cells - 0 Distant metastasis - not applicable Additional pathologic findings - hyalinized fibroadenomas x2 with focal calcifications. See comment. - Dense fibrosis and lobular involution. Ancillary studies - previously performed on section of tumor ([id number] / [id number]). ER - positive (15%, weak intensity) WV - negative (0%) Her2 krista - positive (3+) Microcalcifications - present in both invasive carcinoma and non-neoplastic tissue. Clinical history - Please make reference to previous specimen ([id number]) right breast at 1 o clock and right breast at 2 o clock core biopsies with diagnosis of invasive ductal carcinoma. PATHOLOGIC STAGE: pT2(m) pN0 Mx Evidently the larger focus of cancer was down to the chest wall muscle. Other significant past medical history was asymptomatic decline in ejection fraction 1 receiving Herceptin. Serial echocardiograms--March 2016 at that time he demonstrated ejection fraction of 72%. Another echocardiogram in September 2016 demonstrated ejection fraction of 55%. In November 2016 was 50% and in May 2017 was 45% with mild global hypokinesis. managed with beta-ruth and ARB. Most recent echocardiogram from May 2018 revealed normal left ventricular size with systolic function at lower limits of normal estimated at 53%. The global longitudinal strain was -19.4% (normal) cis. Stage I diastolic dysfunction was observed. Pulmonary artery pressure was 27 mmHg. ---- Had staging CTs scans that suggested lung metastases. Not able to biopsy. Previous therapy: 1) Taxotere/Herceptin/Perjeta. 2) Herceptin/Perjeta. Discontinued 01/2021 for progressive disease. 3) Kadcyla. 02/2021 through 07/2021. Discontinued secondary to significant worsening of neuropathy. 4) SBRT DYLAN metastasis completed 03/02/2023. 5) Enhertu. 6) RT right lung 09/30/2023. Current therapy: 1) Capecitabine, tukatinib and trastuzumab. Interim history: No complaints of diarrhea this cycle but hand-foot skin syndrome symptoms flare especially on the feet. Can be painful to walk on them at times. No bleeding. No symptoms of cardiomyopathy. Stable dyspnea with exertion. Neuropathy symptoms are stable. Using a cane to help with balance. Subcutaneous metastasis on the anterior lower chest wall remains no longer palpable to her. PMH, medications and allergies personally reviewed by me today. Any changes documented in appropriate section. ROS: Constitutional: Denies episodes of fever and night sweats. Not significantly fatigued. Normal appetite. Neuro: Denies [place], vertigo, dizziness and imbalance. HEENT: No recent change in voice, vision or hearing. Resp: See above. CVS: See above. GI: Denies dysgeusia. Denies symptoms of stomatitis. Denies dysphagia and odynophagia. Denies abdominal pain. : Denies dysuria or gross hematuria. No symptoms of bladder outlet obstruction. Endo: Denies hot flashes. Denies polyuria and polydipsia. Denies heat and cold intolerance. Musculoskeletal: Denies bone, back, joint and muscular pain. Derm: See above. Heme: Denies unusual bleeding and unexplained bruising. Psych: Normal mood. PHYSICAL EXAM: Vitals: Blood pressure 109/65, pulse 66, temperature 36.4 C (97.5 F), temperature source Temporal, weight 79.4 kg (175 lb), SpO2 96%. Well-appearing and in no acute distress. EYES: Sclerae are anicteric bilaterally. LYMPHATIC: There is no palpable cervical, supraclavicular adenopathy. RESPIRATORY: Normal vesicular breath sounds but is diminished in the left base. No rales, wheezes or rhonchi. CARDIOVASCULAR: Rhythm is regular. BREAST: Not examined today. ABDOMEN: The abdomen is nondistended. Extremities: No swelling or edema. SKIN: Continued resolution of subcutaneous metastasis near xyphoid. Hands mildly erythematous with only 1 crack along the flexure of the right thumb. Feet mildly erythematous tender with callus. ASSESSMENT/PLAN: (C50.311, Z17.0) Malignant neoplasm of lower-inner quadrant of right breast of female, estrogen receptor positive (HCC) (primary encounter diagnosis) (C79.51) Bone metastases (HCC) (C78.01, C78.02) Malignant neoplasm metastatic to both lungs (HCC) (I42.7, T45.1X5A) Chemotherapy-induced cardiomyopathy (HCC) Assessment: -Originally pT2 pN0(sln) MX ER positive (9%, very weak) WV negative HER overexpressed stage IIA invasive ductal carcinoma the right breast. -Recurrent pT2(m) pN0 (none of 5 LNs) MX ER +(15%, weak intensity)/WV negative (0%) HER2 3+ invasive ductal carcinoma the right breast while on AI (anastrozole). Posterior margin positive--more than just focal according to pathologist. Pectoralis fascia rem she aclixto. Staging workup revealed multiple lung metastases, not biopsy proven. -Tolerated Enhertu overall very well but recent progressive disease with right lung metastasis. -Reviewed CT scans. Stable disease. Plan: -Okay for Herceptin Tuesday. -Continue capecitabine. -Continue tucatinib. -Continue metoprolol to 25 mg BID. -Zometa every 3 months. -CTs in about 3 months. -Echo in about 2 months. -Continue follow-up with Dr. Galeano. -Previously stopped IBU for increase in serum Cr. (G62.0, T45.1X5A) Chemotherapy-induced neuropathy (HCC) Assessment: -No subjective change. -Symptoms remain well controlled with Lyrica. Plan: -Continue Lyrica 150 mg twice daily. -Renewed handicap placard. (L27.0) Drug rash Susman: -Aquaphor and OTC hydrocortisone not helping feet very much. Plan: -Rx Kenalog 0.1% cream. -Continue moisturizer. -Pumice stone to heavily callused areas. -If that does not help then we can see if her insurance covers a keratolytic. Thyroid nodules. Stable on US fall 2022 and recent PET 08/2023. One year follow up recommended. Rip Rivers DO documented in this encounter [facility] 04-24-2024 History of Presen t illness Narrative Radiology Service Progress Note PATIENT NAME: Renate Christiansen DATE OF SERVICE: April 24, 2024 TIME: 11:09 AM PATIENT IDENTITY VERIFICATION COMPLETED USING TWO (2) IDENTIFIERS: Name and Date of confirmed by patient verbally. FALL SCREENING: Has the patient had 2 falls in the last year or 1 fall with injury or currently using an Ambulatory Assistive Device (Walker, Cane, Wheelchair, Crutches, etc.)? No PATIENT GENDER DATA: Female. status: : No status: NO. PATIENT RELEVANT IMPLANT DATA REVIEWED: Yes PATIENT PRESENTS WITH AN IMPLANTABLE OR ATTACHED PUBLICATIONS EDITOR: No RADIOLOGY DEPARTMENT: CT; Exam(s) Completed: Chest Abdomen Pelvis PERIPHERAL IV DATA: power port accessed by [id number] SIGNED BY: RT Ashley(R) April 24, 2024 11:09 AM documented in this encounter [facility] 04-23-2024 Telephone encounter Note Scheduled. Patient informed. [facility] Work Phone: 04-23-2024 Miscellaneous Notes Scheduled. Patient informed. Pt would like to use port for appt on 04/24/[address] @ 9:20 drink 10:20 scan Please call pt to confirm time documented in this encounter [facility] 04-23-2024 Telephone encounter Note Pt would like to use port for appt on 04/24/[address] @ 9:20 drink 10:20 scan Please call pt to confirm time [facility] 04-20-2024 History of Presen t illness Narrative [facility] Refill Assessment Medication(s): Capecitabine Patient's current medication list and adherence status to current therapy were reviewed by Specialty Pharmacy clinical pharmacist to identify any new drug interactions or non-compliance to therapy. Therapy continues to be appropriate for disease, patient response, and medical condition. Verification of therapeutic benefit and effectiveness with current therapy was completed. Adverse events, barriers in adherence, and side effects were assessed and addressed if applicable. Will proceed with refill with no changes in therapy - patient progressing towards achieving therapeutic goals based on medication-specific laboratory parameters, disease state markers and outcomes. Office/provider notes have been reviewed prior to dispensing the medication. 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 Patient confirmed: Yes Med/dose confirmed: Yes Supplies needed: No supplies needed Missed doses: No Estimated days supply on hand: 2 Next cycle/dose due: 04/30/24 Copay amount: 0 Delivery method: FedEx Signature required: Waived on patient request Delivery address: [address] [facility] [id number] Delivery date: 04/26/24 Questions or concerns for the pharmacist?: No Did you have any side effects believed to be related to this medication, that resulted in hospitalization?: No Current Outpatient Medications on File Prior to Visit Medication Sig iv contrast (will be provided with radiology test) CT ABD/PEL -Inject, intravenously, once for 1 dose.No IV access, insert saline lock prior to the beginning of sedation, infusion, injection of imaging exam. Discontinue saline lock post exam. If Pt. has a central line or IVAD, may access for administration according to line specific nursing protocol. Once exam is complete flush line and de-access according to line specific nursing protocol in the CT contrast administration guidelines link. enteric contrast (will be provided with radiology test) For CT ABD/PEL W IVCON Routine order Administer, As Directed One Time Only, via Oral, Rectal, both Oral and Rectal, Enteric Tube, Stoma or Indwelling Catheter, Enteric Contrast as designated per enteric contrast guidelines iv contrast (will be provided with radiology test) CT Chest W -Inject, intravenously, once for 1 dose.No IV access, insert saline lock prior to the beginning of sedation, infusion, injection of imaging exam. Discontinue saline lock post exam. If Pt. has a central line or IVAD, may access for administration according to line specific nursing protocol. Once exam is complete flush line and de-access according to line specific nursing protocol in the CT contrast administration guidelines link. metoprolol tartrate, short acting, (LOPRESSOR) 25 mg tablet Take 1 tablet by mouth twice daily capecitabine (XELODA) 500 mg tablet Take 3 tablets (1500 mg) in the morning and 2 tablets (1000mg) in the evening by mouth with food for 14 days then 7 days off. pregabalin (LYRICA) 150 mg capsule Take 1 capsule by mouth two times a day for 180 days. tucatinib (TUKYSA) 50 mg tablet Take 1 tablet (50 mg) by mouth two times a day with 1 other tucatinib prescription for 200 mg total. tucatinib (TUKYSA) 150 mg tablet Take 1 tablet (150 mg) by mouth two times a day with 1 other tucatinib prescription for 200 mg total. promethazine (PHENERGAN) 25 mg tablet Take 1 tablet by mouth every 6 hours as needed. FOR NAUSEA loratadine (CLARITIN) 10 mg tablet Take 10 mg by mouth once daily. losartan (COZAAR) 50 mg tablet Take 2 tablets by mouth once daily. ascorbic acid/bioflavonoids (MARY C ORAL) Take 500 mg by mouth once daily. loperamide HCl (IMODIUM) 2 mg tab Take 2 mg by mouth as needed. multivitamin tablet Take 1 tablet by mouth once daily. diphenhydrAMINE (BENADRYL) 25 mg tablet Take 25 mg by mouth twice daily as needed. No current facility-administered medications on file prior to visit. [facility] CLINICAL ASSESSMENT - HEMATOLOGY ONCOLOGY V6: Assessment to use: Refill Date of influenza vaccination reminder: 02/21/2024 Date of most recent vaccination assessment: 02/21/2024 Treatment Plan Information: Diagnosis: metastatic recurrence of ER+. WV-, Her2+ breast cancer Previous treatment(s): - Right sided lumpectomy and right axillary sentinel lymph node dissection - AC followed by paclitaxel/Herceptin - Adjuvant radiation - Nerlynx - Taxotere/Herceptin/Perjeta - Kadcyla - SBRT - Enhertu - RT Tx Plan: Herceptin + Capecitabine + Tukysa Starting Dose/Titration: Capecitabine 1500 mg BID for 14 days on, followed by 7 days off - 750 mg/m2 x 1.88 m2 = 1410 mg -> 1500 mg (dose reduced d/t renal function) - Confirmed with Dr. Rivers Administration: Take with water within 30 minutes after a meal. Swallow tablets whole. Warnings: include but are not limited to bone marrow suppression, cardiotoxicity (more common in pt with hx of coronary artery disease), GI toxicity, dztp-ebo-wrxq syndrome (onset ~79 days), hepatotoxicity (onset ~64 days - hyperbilirubinemia) Adverse reactions: include but are not limited to fatigue, rash, N/V/D/C (diarrhea: onset ~34 days, lasting ~ 5 days - risk dehydration), mucositis Emetogenicity: min to low (<30% frequency of emesis) - NCCN Monitoring: - CBC with differential, hepatic function, and renal function should be monitored. - Monitor INR closely if receiving concomitant warfarin. - Monitor for diarrhea, dehydration, hand-foot syndrome, Orantes-Kristofer syndrome, toxic epidermal necrolysis, stomatitis, and cardiotoxicity. - Monitor adherence. Drug-Drug Interactions: none Baseline: - CrCl 47 ml/min using adjusted body weight. 63 ml/min using actual Est. Tx Plan Start Date: No information available Estimated Start Date Info: Per Dr. Rivers's discretion Est. Estimated Treatment Duration: Until disease progression or unacceptable toxicity Crystal Fuentes documented in this encounter [facility] 04-11-2024 History of Presen t illness Narrative Chief Complaint Patient presents with: Established Patient HPI: Renate Christiansen is a 68 year old female who presents here today for evaluation for treatment tomorrow. Per Dr. Rivers's previous note: H/o discovered a lump on the lower inner portion of her right breast in the fall. She was seen at [facility] and underwent a right sided core biopsy on 02/16/2016 by interventional radiology. The tissue specimen demonstrated invasive ductal carcinoma, Yohan grade 2. ER positive (90%, very weak) and WV negative (0%). HER-2 was quantified at 3+. [...] 3) Nerlyx-stopped d/t diarrhea. Last dose of neratinib . I'm never taking that again. Seen here in early March for complaint of right breast fullness and tenderness. Diagnostic mammogram done on 03/07/2019 did not demonstrate a mass within the breast however on ultrasound there was a 0.8 cm x 0.6 cm x 0.9 cm lobulated mass with an indistinct margin in the right breast at 1:00 anterior depth 6 cm in the nipple. It was lobulated and hypoechoic with internal echoes. This corresponded to the tender area. There was also a 1.2 x 0.9 x 2 cm lobulated mass with a circumscribed margin in the right breast at 2:00 anterior depth 7 cm from the nipple. It also was hypoechoic with internal echoes. And it also was tender on exam. Patient next underwent ultrasound-guided right breast needle core biopsy 2 on 03/22/2019. Pathology: MICROSCOPIC DIAGNOSIS A. Right breast at 1 o clock, core biopsy: Invasive ductal carcinoma with the following characteristics: Maximal length - 10 mm Nuclear grade - 3/3 Other findings - ductal carcinoma in situ, nuclear 3/3 with focal comedo necrosis. B. Right breast at 2 o clock, core biopsy: Invasive ductal carcinoma with the following characteristics: Maximal length - 1.2 mm Nuclear grade - 2-3/3 ANTIBODY / CLONE RESULT Block A P53 (DO-7) positive, >90% Ki-67 (30-9) positive, 12% CK8 ([id number]) positive CK5-6 (D5 & 1684) negative Calponin-1 (OP456J) negative P40 (BC28) negative E-Cad (ECH-6) positive MORPHOMETRIC ANALYSIS ER (clone 6F11) 15%, weak intensity WV (clone 16/1E2) 0% Her-2Neu (clone CB11) 3+ Block B Calponin-1 (CL038Y) negative P40 (BC28) negative CK8 (80ptqmL37) positive INTERPRETATION: A. Right breast 1 o clock, biopsy: Invasive ductal carcinoma, grade 3/3. Positive for estrogen receptors (favorable prognostic indicator). Negative for progesterone receptors (unfavorable prognostic indicator). Positive for overexpression of [id number]. B. Right breast 2 o clock, biopsy: Invasive ductal carcinoma, grade 2-3/3. Then underwent right breast modified mastectomy along with axillary lymph node dissection on 04/02/2019. Pathology: MICROSCOPIC DIAGNOSIS Right breast, modified radical mastectomy: Invasive ductal carcinoma x2. Ductal carcinoma in situ. Five out of five lymph nodes, negative for metastatic carcinoma. Hyalinized fibroadenomas x2. See cancer summary below. SJ:breann 04/05/19 INVASIVE BREAST CANCER SUMMARY: Specimen - total breast (including nipple and skin). Procedure - total mastectomy (including nipple and skin). Lymph node sampling - axillary dissection Specimen integrity - single, intact specimen Specimen laterality - right Tumor site - inner quadrant Tumor size: size of largest invasive carcinoma - 3.5 x 1.5 x 1.5 cm Tumor focality - two foci of invasive carcinoma Size of individual foci - 3.5 x 1.5 x 1.5 cm and 2 x 2 x 1 cm Macroscopic and Microscopic extent of tumor: Skin - invasive carcinoma does not invade into the dermis or epidermis. Nipple - DCIS does not involve nipple epidermis. Skeletal muscle - Skeletal muscle is present and is free of carcinoma. Ductal carcinoma in situ (DCIS) - present Extensive intraductal component (EIC) - negative Estimated size (extent) of DCIS - DCIS is present in the area of invasive carcinoma and comprise about 5% of the total tumor volume. Number of blocks with DCIS - 7 Number of blocks examined (breast tissue) - 16 Architectural patterns - cribriform and comedo Nuclear grade - grade 3 (high) Necrosis - present, central (expansive comedo necrosis) Lobular carcinoma in situ (LCIS) - not identified Histologic type of invasive carcinoma - invasive ductal carcinoma (no special type) Histologic Grade (Sorento grade): Glandular/tubular differentiation - score 3 Nuclear pleomorphism - score 3 Mitotic count - score 2 Overall grade - 3 (score of 8) Both tumor show similar morphologic features. Margins - larger focus of invasive carcinoma is present at the closest posterior margin of the specimen. - smaller focus of invasive carcinoma is 1.7 cm away from closest superior margin. - Margins are free of ductal carcinoma in situ. Treatment effect: Response to presurgical (neoadjuvant) therapy - no known presurgical therapy. Lymph-Vascular invasion - not identified Dermal lymph-vascular invasion - not identified Lymph nodes: Number of sentinel lymph nodes examined - 0 Total number of lymph nodes examined (sentinel and nonsentinel) - 5 Number of lymph nodes with macrometastases, micrometastases and isolated tumor cells - 0 Distant metastasis - not applicable Additional pathologic findings - hyalinized fibroadenomas x2 with focal calcifications. See comment. - Dense fibrosis and lobular involution. Ancillary studies - previously performed on section of tumor ([id number] / [id number]). ER - positive (15%, weak intensity) WV - negative (0%) Her2 krista - positive (3+) Microcalcifications - present in both invasive carcinoma and non-neoplastic tissue. Clinical history - Please make reference to previous specimen ([id number]) right breast at 1 o clock and right breast at 2 o clock core biopsies with diagnosis of invasive ductal carcinoma. PATHOLOGIC STAGE: pT2(m) pN0 Mx Evidently the larger focus of cancer was down to the chest wall muscle. Other significant past medical history was asymptomatic decline in ejection fraction 1 receiving Herceptin. Serial echocardiograms--March 2016 at that time he demonstrated ejection fraction of 72%. Another echocardiogram in September 2016 demonstrated ejection fraction of 55%. In November 2016 was 50% and in May 2017 was 45% with mild global hypokinesis. managed with beta-ruth and ARB. Most recent echocardiogram from May 2018 revealed normal left ventricular size with systolic function at lower limits of normal estimated at 53%. The global longitudinal strain was -19.4% (normal) cis. Stage I diastolic dysfunction was observed. Pulmonary artery pressure was 27 mmHg. ---- Had staging CTs scans that suggested lung metastases. Not able to biopsy. Previous therapy: 1) Taxotere/Herceptin/Perjeta. 2) Herceptin/Perjeta. Discontinued 01/2021 for progressive disease. 3) Kadcyla. 02/2021 through 07/2021. Discontinued secondary to significant worsening of neuropathy. 4) SBRT DYLAN metastasis completed 03/02/2023. 5) Enhertu. 6) RT right lung 09/30/2023. Current therapy: 1) Capecitabine, tukatinib and trastuzumab. Pt. started this cycle of xeloda on Tuesday. Pt. here today with spouse. Appetite: Wt. down 2# since last visit. Energy level:I'm really tired. I have over done it. Pt. traveled out of state and had family visit for a few weeks. Denies fevers. Mouth:denies sores Resp:denies cough or sob Cardiac:denies chest pain/palpitations GI:denies abd pain, n/c, +diarrhea until last weekend takes imodium prn :denies dysuria/hematuria Extrem:denies pain Endo:denies hot flashes Neuro:+neuropathy-fingers/feet Skin:denies rashes Heme:denies bleeding The ROS is otherwise negative. Past medical history, appointments, medications, allergies reviewed. No changes. EXAM: BP 110/73 Pulse 60 Temp 36.8 C (98.3 F) (Temporal) Wt 80.3 kg (177 lb) SpO2 94% BMI 32.61 kg/m APPEARANCE Well appearing, alert, in no acute distress, well-hydrated, well nourished. HEART RRR with normal S1 and S2, no murmurs LUNG clear to auscultation LYMPH NODES No cervical lymphadenopathy, No supraclavicular lymphadenopathy, and No axillary lymphadenopathy. ABDOMEN bowel sounds normoactive, soft, non-tender EXTREMITIES No edema NEURO Awake, alert and oriented x 3, Normal gait, and No involuntary motions. SKIN Skin color, texture, turgor normal, no suspicious rashes or lesions LABS: Latest Ref Rng 02/27/2024 03/21/2024 04/11/2024 WBC 3.70 - 11.00 k/uL 3.14 (L) 3.11 (L) 3.62 (L) RBC 3.90 - 5.20 m/uL 2.87 (L) 2.95 (L) 3.03 (L) Hemoglobin 11.5 - 15.5 g/dL 11.0 (L) 11.2 (L) 11.5 Hematocrit 36.0 - 46.0 % 32.5 (L) 32.8 (L) 33.9 (L) MCV 80.0 - 100.0 fL 113.2 (H) 111.2 (H) 111.9 (H) MCH 26.0 - 34.0 pg 38.3 (H) 38.0 (H) 38.0 (H) MCHC 30.5 - 36.0 g/dL 33.8 34.1 33.9 RDW-CV 11.5 - 15.0 % 17.9 (H) 17.0 (H) 17.8 (H) Platelet Count 150 - 400 k/uL 136 (L) 124 (L) 126 (L) MPV 9.0 - 12.7 fL 9.3 9.2 9.4 Neut% % 51.9 55.6 55.8 Abs Neut (ANC) 1.45 - 7.50 k/uL 1.63 1.73 2.02 Lymph% % 24.5 24.8 21.8 Abs Lymph 1.00 - 4.00 k/uL 0.77 (L) 0.77 (L) 0.79 (L) Cotton% % 16.9 12.9 14.1 Abs Cotton <0.87 k/uL 0.53 0.40 0.51 Eosin% % 6.1 6.1 7.2 Abs Eosin <0.46 k/uL 0.19 0.19 0.26 Baso% % 0.3 0.3 0.8 Abs Baso <0.11 k/uL <0.03 <0.03 0.03 Immature Gran % % 0.3 0.3 0.3 IMMATURE GRANS (ABS) <0.10 k/uL <0.03 <0.03 <0.03 NRBC /100 WBC 0.0 0.0 0.0 Absolute nRBC <0.01 k/uL <0.01 <0.01 <0.01 DTYPE Auto Auto Auto Latest Ref Rng 02/27/2024 03/21/2024 04/11/2024 Protein, Total 6.3 - 8.0 g/dL 5.8 (L) 5.7 (L) 5.6 (L) Albumin 3.9 - 4.9 g/dL 4.0 3.9 3.8 (L) Calcium 8.5 - 10.2 mg/dL 9.0 9.4 9.9 Bilirubin, Total 0.2 - 1.3 mg/dL 0.6 0.6 0.7 Alkaline Phosphatase 34 - 123 U/L 111 112 99 AST 13 - 35 U/L 37 (H) 33 30 ALT 7 - 38 U/L 18 15 13 Glucose 74 - 99 mg/dL 133 (H) 116 (H) 125 (H) BUN 7 - 21 mg/dL 9 8 10 Creatinine 0.58 - 0.96 mg/dL 1.26 (H) 1.07 (H) 1.11 (H) Sodium 136 - 144 mmol/L 141 140 140 Potassium 3.7 - 5.1 mmol/L 4.2 3.8 4.1 Chloride 98 - 107 mmol/L 109 (H) 108 (H) 105 CO2 22 - 30 mmol/L 22 25 25 Anion Gap 8 - 15 mmol/L 10 7 (L) 10 eGFR >=60 mL/min/1.73m 46 (L) 56 (L) 54 (L) ASSESSMENT/PLAN: 1. Malignant neoplasm of lower-inner quadrant of right breast of female, estrogen receptor positive (HCC) - ICD9: 174.3, V86.0, ICD10: C50.311, Z17.0 (primary diagnosis) 2. Malignant neoplasm metastatic to bone (HCC) - ICD9: 198.5, ICD10: C79.51 3. Malignant neoplasm metastatic to both lungs (HCC) - ICD9: 197.0, ICD10: C78.01, C78.02 - Overall tolerating treatment well except for mild diarrhea during off week of xeloda. Tolerating herceptin/tucatinib well. - Reviewed CBC/CMP with pt. - Continue current medications. - Continue current cycle of xeloda at current dose. - Continue tucatinib at current dose. - CT's as scheduled. - Proceed as scheduled tomorrow for herceptin. - Follow up as scheduled. - Pt. aware to call office with any questions/concerns. The patient indicates understanding of these issues and agrees with the plan. All documentation from previous visit of 03/21 & 02/27/24-Dr. Rivers/myself was copied and pasted, documentation has been reviewed and edited as necessary for today's visit. Caity Cote APRN.ALESSANDRO documented in this encounter [facility] 04-11-2024 History of Presen t illness Narrative Patient is here for IVAD port flush/blood draw per Nursing [place] protocol. IVAD is located in right upper chest. Site cleansed with Chloraprep IVAD accessed with a #20 gauge 3/4 non-coring Gripper needle Flush with 5cc's Normal Saline. Blood Return: Good. 10 cc's blood aspirated and discarded. Blood drawn for CBC and CMP. Flushed with: 20 ml Normal Saline. Non-coring needle removed. Paper tape applied to puncture site. Site negative for redness, edema or tenderness. Patient tolerated procedure well. documented in this encounter [facility] 03-30-2024 History of Presen t illness Narrative [facility] Refill Assessment Medication(s): Capecitabine (Xeloda) Patient's current medication list and adherence status to current therapy were reviewed by Specialty Pharmacy clinical pharmacist to identify any new drug interactions or non-compliance to therapy. Therapy continues to be appropriate for disease, patient response, and medical condition. Verification of therapeutic benefit and effectiveness with current therapy was completed. Adverse events, barriers in adherence, and side effects were assessed and addressed if applicable. Will proceed with refill with no changes in therapy - patient progressing towards achieving therapeutic goals based on medication-specific laboratory parameters, disease state markers and outcomes. Office/provider notes have been reviewed prior to dispensing the medication. 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 Patient confirmed: Yes Med/dose confirmed: Yes Supplies needed: No supplies needed Missed doses: No Estimated days supply on hand: 2 Next cycle/dose due: 03/30/24 Copay amount: 0 Copay form of payment: (NA) Payment confirmed: Yes Delivery method: FedEx Signature required: Waived on patient request Delivery address: [address] [place] [address] Delivery date: 04/05/24 Questions or concerns for the pharmacist?: No Did you have any side effects believed to be related to this medication, that resulted in hospitalization?: No Current Outpatient Medications on File Prior to Visit Medication Sig iv contrast (will be provided with radiology test) CT ABD/PEL -Inject, intravenously, once for 1 dose.No IV access, insert saline lock prior to the beginning of sedation, infusion, injection of imaging exam. Discontinue saline lock post exam. If Pt. has a central line or IVAD, may access for administration according to line specific nursing protocol. Once exam is complete flush line and de-access according to line specific nursing protocol in the CT contrast administration guidelines link. enteric contrast (will be provided with radiology test) For CT ABD/PEL W IVCON Routine order Administer, As Directed One Time Only, via Oral, Rectal, both Oral and Rectal, Enteric Tube, Stoma or Indwelling Catheter, Enteric Contrast as designated per enteric contrast guidelines iv contrast (will be provided with radiology test) CT Chest W -Inject, intravenously, once for 1 dose.No IV access, insert saline lock prior to the beginning of sedation, infusion, injection of imaging exam. Discontinue saline lock post exam. If Pt. has a central line or IVAD, may access for administration according to line specific nursing protocol. Once exam is complete flush line and de-access according to line specific nursing protocol in the CT contrast administration guidelines link. metoprolol tartrate, short acting, (LOPRESSOR) 25 mg tablet Take 1 tablet by mouth twice daily capecitabine (XELODA) 500 mg tablet Take 3 tablets (1500 mg) in the morning and 2 tablets (1000mg) in the evening by mouth with food for 14 days then 7 days off. pregabalin (LYRICA) 150 mg capsule Take 1 capsule by mouth two times a day for 180 days. tucatinib (TUKYSA) 50 mg tablet Take 1 tablet (50 mg) by mouth two times a day with 1 other tucatinib prescription for 200 mg total. tucatinib (TUKYSA) 150 mg tablet Take 1 tablet (150 mg) by mouth two times a day with 1 other tucatinib prescription for 200 mg total. promethazine (PHENERGAN) 25 mg tablet Take 1 tablet by mouth every 6 hours as needed. FOR NAUSEA loratadine (CLARITIN) 10 mg tablet Take 10 mg by mouth once daily. losartan (COZAAR) 50 mg tablet Take 2 tablets by mouth once daily. ascorbic acid/bioflavonoids (MARY C ORAL) Take 500 mg by mouth once daily. loperamide HCl (IMODIUM) 2 mg tab Take 2 mg by mouth as needed. multivitamin tablet Take 1 tablet by mouth once daily. diphenhydrAMINE (BENADRYL) 25 mg tablet Take 25 mg by mouth twice daily as needed. No current facility-administered medications on file prior to visit. [facility] CLINICAL ASSESSMENT - HEMATOLOGY ONCOLOGY V6: Assessment to use: Refill Date of influenza vaccination reminder: 02/21/2024 Date of most recent vaccination assessment: 02/21/2024 Treatment Plan Information: Diagnosis: metastatic recurrence of ER+. WV-, Her2+ breast cancer Previous treatment(s): - Right sided lumpectomy and right axillary sentinel lymph node dissection - AC followed by paclitaxel/Herceptin - Adjuvant radiation - Nerlynx - Taxotere/Herceptin/Perjeta - Kadcyla - SBRT - Enhertu - RT Tx Plan: Herceptin + Capecitabine + Tukysa Starting Dose/Titration: Capecitabine 1500 mg BID for 14 days on, followed by 7 days off - 750 mg/m2 x 1.88 m2 = 1410 mg -> 1500 mg (dose reduced d/t renal function) - Confirmed with Dr. Rivers Administration: Take with water within 30 minutes after a meal. Swallow tablets whole. Warnings: include but are not limited to bone marrow suppression, cardiotoxicity (more common in pt with hx of coronary artery disease), GI toxicity, [id number] syndrome (onset ~79 days), hepatotoxicity (onset ~64 days - hyperbilirubinemia) Adverse reactions: include but are not limited to fatigue, rash, N/V/D/C (diarrhea: onset ~34 days, lasting ~ 5 days - risk dehydration), mucositis Emetogenicity: min to low (<30% frequency of emesis) - NCCN Monitoring: - CBC with differential, hepatic function, and renal function should be monitored. - Monitor INR closely if receiving concomitant warfarin. - Monitor for diarrhea, dehydration, hand-foot syndrome, Orantes-Kristofer syndrome, toxic epidermal necrolysis, stomatitis, and cardiotoxicity. - Monitor adherence. Drug-Drug Interactions: none Baseline: - CrCl 47 ml/min using adjusted body weight. 63 ml/min using actual Est. Tx Plan Start Date: No information available Estimated Start Date Info: Per Dr. Rivers's discretion Est. Estimated Treatment Duration: Until disease progression or unacceptable toxicity Jethro Blackmon RPh documented in this encounter [facility] 03-22-2024 History of Presen t illness Narrative Pt. Was seen by Dr. Rivers yesterday for an office visit. Pt states no changes since yesterday and verbally agrees to treatment. documented in this encounter [facility] 03-21-2024 History of Presen t illness Narrative Oncologic problem(s): 1) Metastatic recurrence of ER positive, WV negative, HER2 positive breast cancer. 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 HPI: The patient is a 68 year old female who discovered a lump on the lower inner portion of her right breast in the fall of 2015. She was seen at [facility] and underwent a right sided core biopsy on 02/16/2016 by interventional radiology. The tissue specimen demonstrated invasive ductal carcinoma, Sorento grade 2. ER positive (90%, very weak) and WV negative (0%). HER-2 was quantified at 3+. [...] 3) Nerlyx-stopped d/t diarrhea. Last dose of neratinib . I'm never taking that again. Seen here in early March for complaint of right breast fullness and tenderness. Diagnostic mammogram done on 03/07/2019 did not demonstrate a mass within the breast however on ultrasound there was a 0.8 cm x 0.6 cm x 0.9 cm lobulated mass with an indistinct margin in the right breast at 1:00 anterior depth 6 cm in the nipple. It was lobulated and hypoechoic with internal echoes. This corresponded to the tender area. There was also a 1.2 x 0.9 x 2 cm lobulated mass with a circumscribed margin in the right breast at 2:00 anterior depth 7 cm from the nipple. It also was hypoechoic with internal echoes. And it also was tender on exam. Patient next underwent ultrasound-guided right breast needle core biopsy 2 on 03/22/2019. Pathology: MICROSCOPIC DIAGNOSIS A. Right breast at 1 o clock, core biopsy: Invasive ductal carcinoma with the following characteristics: Maximal length - 10 mm Nuclear grade - 3/3 Other findings - ductal carcinoma in situ, nuclear 3/3 with focal comedo necrosis. B. Right breast at 2 o clock, core biopsy: Invasive ductal carcinoma with the following characteristics: Maximal length - 1.2 mm Nuclear grade - 2-3/3 ANTIBODY / CLONE RESULT Block A P53 (DO-7) positive, >90% Ki-67 (30-9) positive, 12% CK8 ([id number]) positive CK5-6 (D5 & 1684) negative Calponin-1 (NT071F) negative P40 (BC28) negative E-Cad (ECH-6) positive MORPHOMETRIC ANALYSIS ER (clone 6F11) 15%, weak intensity WV (clone 16/1E2) 0% Her-2Neu (clone CB11) 3+ Block B Calponin-1 (YE242G) negative P40 (BC28) negative CK8 ([id number]) positive INTERPRETATION: A. Right breast 1 o clock, biopsy: Invasive ductal carcinoma, grade 3/3. Positive for estrogen receptors (favorable prognostic indicator). Negative for progesterone receptors (unfavorable prognostic indicator). Positive for overexpression of MUK4nsz. B. Right breast 2 o clock, biopsy: Invasive ductal carcinoma, grade 2-3/3. Then underwent right breast modified mastectomy along with axillary lymph node dissection on 04/02/2019. Pathology: MICROSCOPIC DIAGNOSIS Right breast, modified radical mastectomy: Invasive ductal carcinoma x2. Ductal carcinoma in situ. Five out of five lymph nodes, negative for metastatic carcinoma. Hyalinized fibroadenomas x2. See cancer summary below. SJ:breann 04/05/19 INVASIVE BREAST CANCER SUMMARY: Specimen - total breast (including nipple and skin). Procedure - total mastectomy (including nipple and skin). Lymph node sampling - axillary dissection Specimen integrity - single, intact specimen Specimen laterality - right Tumor site - inner quadrant Tumor size: size of largest invasive carcinoma - 3.5 x 1.5 x 1.5 cm Tumor focality - two foci of invasive carcinoma Size of individual foci - 3.5 x 1.5 x 1.5 cm and 2 x 2 x 1 cm Macroscopic and Microscopic extent of tumor: Skin - invasive carcinoma does not invade into the dermis or epidermis. Nipple - DCIS does not involve nipple epidermis. Skeletal muscle - Skeletal muscle is present and is free of carcinoma. Ductal carcinoma in situ (DCIS) - present Extensive intraductal component (EIC) - negative Estimated size (extent) of DCIS - DCIS is present in the area of invasive carcinoma and comprise about 5% of the total tumor volume. Number of blocks with DCIS - 7 Number of blocks examined (breast tissue) - 16 Architectural patterns - cribriform and comedo Nuclear grade - grade 3 (high) Necrosis - present, central (expansive comedo necrosis) Lobular carcinoma in situ (LCIS) - not identified Histologic type of invasive carcinoma - invasive ductal carcinoma (no special type) Histologic Grade (Yohan grade): Glandular/tubular differentiation - score 3 Nuclear pleomorphism - score 3 Mitotic count - score 2 Overall grade - 3 (score of 8) Both tumor show similar morphologic features. Margins - larger focus of invasive carcinoma is present at the closest posterior margin of the specimen. - smaller focus of invasive carcinoma is 1.7 cm away from closest superior margin. - Margins are free of ductal carcinoma in situ. Treatment effect: Response to presurgical (neoadjuvant) therapy - no known presurgical therapy. Lymph-Vascular invasion - not identified Dermal lymph-vascular invasion - not identified Lymph nodes: Number of sentinel lymph nodes examined - 0 Total number of lymph nodes examined (sentinel and nonsentinel) - 5 Number of lymph nodes with macrometastases, micrometastases and isolated tumor cells - 0 Distant metastasis - not applicable Additional pathologic findings - hyalinized fibroadenomas x2 with focal calcifications. See comment. - Dense fibrosis and lobular involution. Ancillary studies - previously performed on section of tumor ([id number] / [id number]). ER - positive (15%, weak intensity) WV - negative (0%) Her2 krista - positive (3+) Microcalcifications - present in both invasive carcinoma and non-neoplastic tissue. Clinical history - Please make reference to previous specimen ([id number]) right breast at 1 o clock and right breast at 2 o clock core biopsies with diagnosis of invasive ductal carcinoma. PATHOLOGIC STAGE: pT2(m) pN0 Mx Evidently the larger focus of cancer was down to the chest wall muscle. Other significant past medical history was asymptomatic decline in ejection fraction 1 receiving Herceptin. Serial echocardiograms--March 2016 at that time he demonstrated ejection fraction of 72%. Another echocardiogram in September 2016 demonstrated ejection fraction of 55%. In November 2016 was 50% and in May 2017 was 45% with mild global hypokinesis. managed with beta-ruth and ARB. Most recent echocardiogram from May 2018 revealed normal left ventricular size with systolic function at lower limits of normal estimated at 53%. The global longitudinal strain was -19.4% (normal) cis. Stage I diastolic dysfunction was observed. Pulmonary artery pressure was 27 mmHg. ---- Had staging CTs scans that suggested lung metastases. Not able to biopsy. Previous therapy: 1) Taxotere/Herceptin/Perjeta. 2) Herceptin/Perjeta. Discontinued 01/2021 for progressive disease. 3) Kadcyla. 02/2021 through 07/2021. Discontinued secondary to significant worsening of neuropathy. 4) SBRT DYLAN metastasis completed 03/02/2023. 5) Enhertu. 6) RT right lung 09/30/2023. Current therapy: 1) Capecitabine, tukatinib and trastuzumab. Interim history: Cough and orthopnea stopped with course of Levaquin. Capecitabine dose reduced. Helping with diarrhea. Imodium stops it when occurs. Subcutaneous metastasis on the anterior lower chest wall remains no longer palpable to her. 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 PMH, medications and allergies personally reviewed by me today. Any changes documented in appropriate section. ROS: Constitutional: Denies episodes of fever and night sweats. Not significantly fatigued. Normal appetite. Neuro: Denies [place], vertigo, dizziness and imbalance. HEENT: No recent change in voice, vision or hearing. Resp: See above. CVS: See above. GI: Denies dysgeusia. Denies symptoms of stomatitis. Denies dysphagia and odynophagia. Denies abdominal pain. : Denies dysuria or gross hematuria. No symptoms of bladder outlet obstruction. Endo: Denies hot flashes. Denies polyuria and polydipsia. Denies heat and cold intolerance. Musculoskeletal: Denies bone, back, joint and muscular pain. Derm: Denies rash. Denies jaundice and diffuse pruritis. Heme: Denies unusual bleeding and unexplained bruising. Psych: Normal mood. PHYSICAL EXAM: Vitals: Blood pressure 119/64, pulse 66, temperature 36.4 C (97.5 F), temperature source Temporal, weight 81.2 kg (179 lb), SpO2 97%. Well-appearing and in no acute distress. EYES: Sclerae are anicteric bilaterally. LYMPHATIC: There is no palpable cervical, supraclavicular adenopathy. RESPIRATORY: Normal vesicular breath sounds but is diminished in the left base. No rales, wheezes or rhonchi. CARDIOVASCULAR: Rhythm is regular. BREAST: Not examined today. ABDOMEN: The abdomen is nondistended. Extremities: No swelling or edema. SKIN: Continued resolution of subcutaneous metastasis near xyphoid. LABS: Latest Ref Rng 03/21/2024 WBC 3.70 - 11.00 k/uL 3.11 (L) RBC 3.90 - 5.20 m/uL 2.95 (L) Hemoglobin 11.5 - 15.5 g/dL 11.2 (L) Hematocrit 36.0 - 46.0 % 32.8 (L) MCV 80.0 - 100.0 fL 111.2 (H) MCH 26.0 - 34.0 pg 38.0 (H) MCHC 30.5 - 36.0 g/dL 34.1 RDW-CV 11.5 - 15.0 % 17.0 (H) Platelet Count 150 - 400 k/uL 124 (L) MPV 9.0 - 12.7 fL 9.2 Neut% % 55.6 Abs Neut (ANC) 1.45 - 7.50 k/uL 1.73 Lymph% % 24.8 Abs Lymph 1.00 - 4.00 k/uL 0.77 (L) Cotton% % 12.9 Abs Cotton <0.87 k/uL 0.40 Eosin% % 6.1 Abs Eosin <0.46 k/uL 0.19 Baso% % 0.3 Abs Baso <0.11 k/uL <0.03 Immature Gran % % 0.3 IMMATURE GRANS (ABS) <0.10 k/uL <0.03 NRBC /100 WBC 0.0 Absolute nRBC <0.01 k/uL <0.01 DTYPE Auto Protein, Total 6.3 - 8.0 g/dL 5.7 (L) Albumin 3.9 - 4.9 g/dL 3.9 Calcium 8.5 - 10.2 mg/dL 9.4 Bilirubin, Total 0.2 - 1.3 mg/dL 0.6 Alkaline Phosphatase 34 - 123 U/L 112 AST 13 - 35 U/L 33 ALT 7 - 38 U/L 15 Glucose 74 - 99 mg/dL 116 (H) BUN 7 - 21 mg/dL 8 Creatinine 0.58 - 0.96 mg/dL 1.07 (H) Sodium 136 - 144 mmol/L 140 Potassium 3.7 - 5.1 mmol/L 3.8 Chloride 98 - 107 mmol/L 108 (H) CO2 22 - 30 mmol/L 25 Anion Gap 8 - 15 mmol/L 7 (L) eGFR >=60 mL/min/1.73m 56 (L) ASSESSMENT/PLAN: (C50.311, Z17.0) Malignant neoplasm of lower-inner quadrant of right breast of female, estrogen receptor positive (HCC) (primary encounter diagnosis) (C79.51) Bone metastases (HCC) (C78.01, C78.02) Malignant neoplasm metastatic to both lungs (HCC) (I42.7, T45.1X5A) Chemotherapy-induced cardiomyopathy (HCC) Assessment: -Originally pT2 pN0(sln) MX ER positive (9%, very weak) WV negative HER overexpressed stage IIA invasive ductal carcinoma the right breast. -Recurrent pT2(m) pN0 (none of 5 LNs) MX ER +(15%, weak intensity)/WV negative (0%) HER2 3+ invasive ductal carcinoma the right breast while on AI (anastrozole). Posterior margin positive--more than just focal according to pathologist. Pectoralis fascia rem she calixto. Staging workup revealed multiple lung metastases, not biopsy proven. -Tolerated Enhertu overall very well but recent progressive disease with right lung metastasis. -Tolerating therapy well overall. Plan: -Okay for Herceptin today. -Okay for next cycle capecitabine. -Continue tucatinib. -Continue metoprolol to 25 mg BID. -Continue Lyrica 150 mg at HS. -Zometa every 3 months. -CTs the week prior to next OV with me in April. -Echo in about 2-3 months. -Continue follow-up with Dr. Galeano. -Previously stopped IBU for increase in serum Cr. (G62.0, T45.1X5A) Chemotherapy-induced neuropathy (HCC) Assessment: -No subjective change. -Symptoms remain well controlled with Lyrica. Plan: -Continue Lyrica 150 mg twice daily. Thyroid nodules. Stable on US fall 2022 and re cent PET 08/2023. One year follow up recommended. Portions of this documentation were copied and pasted from previous office visit notes in order to provide a cohesive continuity of the history. The note has been reviewed and edited and updated as necessary. I spent a total of 15 minutes on the date of the service which included preparing to see the patient, [id number] patient care, completing clinical documentation, obtaining and/or reviewing separately obtained history, performing a medically appropriate examination, counseling and educating the patient/family/caregiver, ordering medications, tests, or procedures, communicating with other HCPs (not separately reported), and communicating results to the patient/family/caregiver. Rip Rivers DO documented in this encounter [facility] 03-09-2024 History of Presen t illness Narrative [facility] Ref[facility] Assessment Medication(s): capecitabine Patient's current medication list and adherence status to current therapy were reviewed by Specialty Pharmacy clinical pharmacist to identify any new drug interactions or non-compliance to therapy. Therapy continues to be appropriate for disease, patient response, and medical condition. Verification of therapeutic benefit and effectiveness with current therapy was completed. Adverse events, barriers in adherence, and side effects were assessed and addressed if applicable. Will proceed with refill with no changes in therapy - patient progressing towards achieving therapeutic goals based on medication-specific laboratory parameters, disease state markers and outcomes. Office/provider notes have been reviewed prior to dispensing the medication. 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 Patient confirmed: Yes Med/dose confirmed: Yes Supplies needed: No supplies needed Missed doses: No Estimated days supply on hand: 2 Next cycle/dose due: 03/19/24 Copay amount: 0 Payment confirmed: Yes Delivery method: FedEx Signature required: Waived on patient request Delivery address: [address] [facility] [address] Delivery date: 03/15/24 Questions or concerns for the pharmacist?: No Did you have any side effects believed to be related to this medication, that resulted in hospitalization?: No Current Outpatient Medications on File Prior to Visit Medication Sig metoprolol tartrate, short acting, (LOPRESSOR) 25 mg tablet Take 1 tablet by mouth twice daily capecitabine (XELODA) 500 mg tablet Take 3 tablets (1500 mg) in the morning and 2 tablets (1000mg) in the evening by mouth with food for 14 days then 7 days off. pregabalin (LYRICA) 150 mg capsule Take 1 capsule by mouth two times a day for 180 days. tucatinib (TUKYSA) 50 mg tablet Take 1 tablet (50 mg) by mouth two times a day with 1 other tucatinib prescription for 200 mg total. tucatinib (TUKYSA) 150 mg tablet Take 1 tablet (150 mg) by mouth two times a day with 1 other tucatinib prescription for 200 mg total. promethazine (PHENERGAN) 25 mg tablet Take 1 tablet by mouth every 6 hours as needed. FOR NAUSEA loratadine (CLARITIN) 10 mg tablet Take 10 mg by mouth once daily. losartan (COZAAR) 50 mg tablet Take 2 tablets by mouth once daily. ascorbic acid/bioflavonoids (MARY C ORAL) Take 500 mg by mouth once daily. loperamide HCl (IMODIUM) 2 mg tab Take 2 mg by mouth as needed. multivitamin tablet Take 1 tablet by mouth once daily. diphenhydrAMINE (BENADRYL) 25 mg tablet Take 25 mg by mouth twice daily as needed. Current Facility-Administered Medications on File Prior to Visit Medication perflutren lipid microspheres 1.3 mL in NaCl (PF) 0.9% 10 mL injection (DEFINITY) sodium chloride 0.9 % (flush) 10 mL (BD POSIFLUSH) [facility] CLINICAL ASSESSMENT - HEMATOLOGY ONCOLOGY V6: Assessment to use: Refill Date of influenza vaccination reminder: 02/21/2024 Date of most recent vaccination assessment: 02/21/2024 Treatment Plan Information: Diagnosis: metastatic recurrence of ER+. WV-, Her2+ breast cancer Previous treatment(s): - Right sided lumpectomy and right axillary sentinel lymph node dissection - AC followed by paclitaxel/Herceptin - Adjuvant radiation - Nerlynx - Taxotere/Herceptin/Perjeta - Kadcyla - SBRT - Enhertu - RT Tx Plan: Herceptin + Capecitabine + Tukysa Starting Dose/Titration: Capecitabine 1500 mg BID for 14 days on, followed by 7 days off - 750 mg/m2 x 1.88 m2 = 1410 mg -> 1500 mg (dose reduced d/t renal function) - Confirmed with Dr. Rivers Administration: Take with water within 30 minutes after a meal. Swallow tablets whole. Warnings: include but are not limited to bone marrow suppression, cardiotoxicity (more common in pt with hx of coronary artery disease), GI toxicity, dcmi-kyj-sinl syndrome (onset ~79 days), hepatotoxicity (onset ~64 days - hyperbilirubinemia) Adverse reactions: include but are not limited to fatigue, rash, N/V/D/C (diarrhea: onset ~34 days, lasting ~ 5 days - risk dehydration), mucositis Emetogenicity: min to low (<30% frequency of emesis) - NCCN Monitoring: - CBC with differential, hepatic function, and renal function should be monitored. - Monitor INR closely if receiving concomitant warfarin. - Monitor for diarrhea, dehydration, hand-foot syndrome, Orantes-Kristofer syndrome, toxic epidermal necrolysis, stomatitis, and cardiotoxicity. - Monitor adherence. Drug-Drug Interactions: none Baseline: - CrCl 47 ml/min using adjusted body weight. 63 ml/min using actual Est. Tx Plan Start Date: No information available Estimated Start Date Info: Per Dr. Rivers's discretion Est. Estimated Treatment Duration: Until disease progression or unacceptable toxicity Rashida Butler ([employer]) documented in this encounter [facility] 02-27-2024 History of Presen t illness Narrative Chief Complaint Patient presents with: Established Patient HPI: Renate Christiansen is a 68 year old female who presents here today for evaluation for treatment tomorrow. Per Dr. Rivers's previous notes: H/o pt. discovered a lump on the lower inner portion of her right breast in the fall of 2015. She was seen at [facility] and underwent a right sided core biopsy on 02/16/2016 by interventional radiology. The tissue specimen demonstrated invasive ductal carcinoma, Sorento grade 2. ER positive (90%, very weak) and WV negative (0%). HER-2 was quantified at 3+. [...] 3) Nerlyx-stopped d/t diarrhea. Last dose of neratinib . I'm never taking that again. Seen here in early March for complaint of right breast fullness and tenderness. Diagnostic mammogram done on 03/07/2019 did not demonstrate a mass within the breast however on ultrasound there was a 0.8 cm x 0.6 cm x 0.9 cm lobulated mass with an indistinct margin in the right breast at 1:00 anterior depth 6 cm in the nipple. It was lobulated and hypoechoic with internal echoes. This corresponded to the tender area. There was also a 1.2 x 0.9 x 2 cm lobulated mass with a circumscribed margin in the right breast at 2:00 anterior depth 7 cm from the nipple. It also was hypoechoic with internal echoes. And it also was tender on exam. Patient next underwent ultrasound-guided right breast needle core biopsy 2 on 03/22/2019. Pathology: MICROSCOPIC DIAGNOSIS A. Right breast at 1 o clock, core biopsy: Invasive ductal carcinoma with the following characteristics: Maximal length - 10 mm Nuclear grade - 3/3 Other findings - ductal carcinoma in situ, nuclear 3/3 with focal comedo necrosis. B. Right breast at 2 o clock, core biopsy: Invasive ductal carcinoma with the following characteristics: Maximal length - 1.2 mm Nuclear grade - 2-3/3 ANTIBODY / CLONE RESULT Block A P53 (DO-7) positive, >90% Ki-67 (30-9) positive, 12% CK8 (27gniaD25) positive CK5-6 (D5 & 1684) negative Calponin-1 (BO546S) negative P40 (BC28) negative E-Cad (ECH-6) positive MORPHOMETRIC ANALYSIS ER (clone 6F11) 15%, weak intensity WV (clone 16/1E2) 0% Her-2Neu (clone CB11) 3+ Block B Calponin-1 ([id number]) negative P40 (BC28) negative CK8 ([id number]) positive INTERPRETATION: A. Right breast 1 o clock, biopsy: Invasive ductal carcinoma, grade 3/3. Positive for estrogen receptors (favorable prognostic indicator). Negative for progesterone receptors (unfavorable prognostic indicator). Positive for overexpression of MGU1rua. B. Right breast 2 o clock, biopsy: Invasive ductal carcinoma, grade 2-3/3. Then underwent right breast modified mastectomy along with axillary lymph node dissection on 04/02/2019. Pathology: MICROSCOPIC DIAGNOSIS Right breast, modified radical mastectomy: Invasive ductal carcinoma x2. Ductal carcinoma in situ. Five out of five lymph nodes, negative for metastatic carcinoma. Hyalinized fibroadenomas x2. See cancer summary below. SJ:breann 04/05/19 INVASIVE BREAST CANCER SUMMARY: Specimen - total breast (including nipple and skin). Procedure - total mastectomy (including nipple and skin). Lymph node sampling - axillary dissection Specimen integrity - single, intact specimen Specimen laterality - right Tumor site - inner quadrant Tumor size: size of largest invasive carcinoma - 3.5 x 1.5 x 1.5 cm Tumor focality - two foci of invasive carcinoma Size of individual foci - 3.5 x 1.5 x 1.5 cm and 2 x 2 x 1 cm Macroscopic and Microscopic extent of tumor: Skin - invasive carcinoma does not invade into the dermis or epidermis. Nipple - DCIS does not involve nipple epidermis. Skeletal muscle - Skeletal muscle is present and is free of carcinoma. Ductal carcinoma in situ (DCIS) - present Extensive intraductal component (EIC) - negative Estimated size (extent) of DCIS - DCIS is present in the area of invasive carcinoma and comprise about 5% of the total tumor volume. Number of blocks with DCIS - 7 Number of blocks examined (breast tissue) - 16 Architectural patterns - cribriform and comedo Nuclear grade - grade 3 (high) Necrosis - present, central (expansive comedo necrosis) Lobular carcinoma in situ (LCIS) - not identified Histologic type of invasive carcinoma - invasive ductal carcinoma (no special type) Histologic Grade (Yohan grade): Glandular/tubular differentiation - score 3 Nuclear pleomorphism - score 3 Mitotic count - score 2 Overall grade - 3 (score of 8) Both tumor show similar morphologic features. Margins - larger focus of invasive carcinoma is present at the closest posterior margin of the specimen. - smaller focus of invasive carcinoma is 1.7 cm away from closest superior margin. - Margins are free of ductal carcinoma in situ. Treatment effect: Response to presurgical (neoadjuvant) therapy - no known presurgical therapy. Lymph-Vascular invasion - not identified Dermal lymph-vascular invasion - not identified Lymph nodes: Number of sentinel lymph nodes examined - 0 Total number of lymph nodes examined (sentinel and nonsentinel) - 5 Number of lymph nodes with macrometastases, micrometastases and isolated tumor cells - 0 Distant metastasis - not applicable Additional pathologic findings - hyalinized fibroadenomas x2 with focal calcifications. See comment. - Dense fibrosis and lobular involution. Ancillary studies - previously performed on section of tumor ([id number] / [id number]). ER - positive (15%, weak intensity) WV - negative (0%) Her2 krista - positive (3+) Microcalcifications - present in both invasive carcinoma and non-neoplastic tissue. Clinical history - Please make reference to previous specimen ([id number]) right breast at 1 o clock and right breast at 2 o clock core biopsies with diagnosis of invasive ductal carcinoma. PATHOLOGIC STAGE: pT2(m) pN0 Mx Evidently the larger focus of cancer was down to the chest wall muscle. Other significant past medical history was asymptomatic decline in ejection fraction 1 receiving Herceptin. Serial echocardiograms--March 2016 at that time he demonstrated ejection fraction of 72%. Another echocardiogram in September 2016 demonstrated ejection fraction of 55%. In November 2016 was 50% and in May 2017 was 45% with mild global hypokinesis. managed with beta-ruth and ARB. Most recent echocardiogram from May 2018 revealed normal left ventricular size with systolic function at lower limits of normal estimated at 53%. The global longitudinal strain was -19.4% (normal) cis. Stage I diastolic dysfunction was observed. Pulmonary artery pressure was 27 mmHg. ---- Had staging CTs scans that suggested lung metastases. Not able to biopsy. Previous therapy: 1) Taxotere/Herceptin/Perjeta. 2) Herceptin/Perjeta. Discontinued 01/2021 for progressive disease. 3) Kadcyla. 02/2021 through 07/2021. Discontinued secondary to significant worsening of neuropathy. 4) SBRT DYLAN metastasis completed 03/02/2023. 5) Enhertu. 6) RT right lung 09/30/2023. Current therapy: 1) Capecitabine, tukatinib and trastuzumab. Re-started xeloda and lower dose and tucatinib same dose on 01/16/24. Starting next cycle of xeloda today. Pt. here today with spouse. Appetite:It's good. Wt. up 1# Energy level:Not bad. Denies fevers. Mouth:denies sores Resp:denies cough or sob Cardiac:denies chest pain/palpitations GI:denies abd pain, n/v, diarrhea during off week of xeloda-2 imodium usually :denies dysuria/hematuria Extrem:denies pain Endo:denies hot flashes Neuro:+neuropathy stable Skin:denies rashes Heme:denies bleeding The ROS is otherwise negative. Past medical history, appointments, medications, allergies reviewed. No changes. EXAM: BP 110/58 Pulse (!) 55 Temp 36.7 C (98 F) (Temporal) Wt 81 kg (178 lb 9.2 oz) SpO2 97% BMI 32.90 kg/m APPEARANCE Well appearing, alert, in no acute distress, well-hydrated, well nourished. HEART RRR with normal S1 and S2, no murmurs LUNG clear to auscultation LYMPH NODES No cervical lymphadenopathy, No supraclavicular lymphadenopathy, and No axillary lymphadenopathy. ABDOMEN bowel sounds normoactive, soft, non-tender EXTREMITIES No edema NEURO Awake, alert and oriented x 3, Normal gait, and No involuntary motions. SKIN Skin color, texture, turgor normal, no suspicious rashes or lesions LABS: Latest Ref Rng 01/16/2024 02/03/2024 02/27/2024 WBC 3.70 - 11.00 k/uL 3.33 (L) 4.09 3.14 (L) RBC 3.90 - 5.20 m/uL 3.19 (L) 2.92 (L) 2.87 (L) Hemoglobin 11.5 - 15.5 g/dL 11.3 (L) 11.0 (L) 11.0 (L) Hematocrit 36.0 - 46.0 % 33.9 (L) 32.3 (L) 32.5 (L) MCV 80.0 - 100.0 fL 106.3 (H) 110.6 (H) 113.2 (H) MCH 26.0 - 34.0 pg 35.4 (H) 37.7 (H) 38.3 (H) MCHC 30.5 - 36.0 g/dL 33.3 34.1 33.8 RDW-CV 11.5 - 15.0 % 20.0 (H) 19.6 (H) 17.9 (H) Platelet Count 150 - 400 k/uL 79 (L) 172 136 (L) MPV 9.0 - 12.7 fL 9.5 9.4 9.3 NRBC /100 WBC 0.0 0.0 0.0 Absolute nRBC <0.01 k/uL <0.01 <0.01 <0.01 Neut% % 51.4 57.0 51.9 Abs Neut (ANC) 1.45 - 7.50 k/uL 1.71 2.33 1.63 Lymph% % 23.7 23.0 24.5 Abs Lymph 1.00 - 4.00 k/uL 0.79 (L) 0.98 (L) 0.77 (L) Cotton% % 15.6 7.0 16.9 Abs Cotton <0.87 k/uL 0.52 0.29 0.53 Eosin% % 8.1 12.0 6.1 Abs Eosin <0.46 k/uL 0.27 0.49 (H) 0.19 Baso% % 0.6 0.0 0.3 Abs Baso <0.11 k/uL <0.03 0.00 <0.03 Realym% % 1.0 Platelet Estimate Adequate Red Cell Morph Reviewed: see results of individual morphologies Anisocytosis Present Ovalocytes Few RBC Fragments None Seen Few ! Tear Drop Few DTYPE Auto Manual Auto Immature Gran % % 0.6 0.3 IMMATURE GRANS (ABS) <0.10 k/uL <0.03 <0.03 Latest Ref Rng 01/16/2024 02/03/2024 02/27/2024 Protein, Total 6.3 - 8.0 g/dL 5.3 (L) 5.8 (L) 5.8 (L) Albumin 3.9 - 4.9 g/dL 3.7 (L) 3.8 (L) 4.0 Calcium 8.5 - 10.2 mg/dL 10.3 (H) 9.6 9.0 Bilirubin, Total 0.2 - 1.3 mg/dL 1.0 0.8 0.6 Alkaline Phosphatase 34 - 123 U/L 97 124 (H) 111 AST 13 - 35 U/L 32 41 (H) 37 (H) ALT 7 - 38 U/L 17 24 18 Glucose 74 - 99 mg/dL 125 (H) 149 (H) 133 (H) BUN 7 - 21 mg/dL 13 18 9 Creatinine 0.58 - 0.96 mg/dL 0.96 1.52 (H) 1.26 (H) Sodium 136 - 144 mmol/L 142 143 141 Potassium 3.7 - 5.1 mmol/L 3.4 (L) 3.5 (L) 4.2 Chloride 98 - 107 mmol/L 109 (H) 109 (H) 109 (H) CO2 22 - 30 mmol/L 26 23 22 Anion Gap 8 - 15 mmol/L 7 (L) 11 10 eGFR >=60 mL/min/1.73m 64 37 (L) 46 (L) ASSESSMENT/PLAN: 1. Malignant neoplasm of lower-inner quadrant of right breast of female, estrogen receptor positive (HCC) - ICD9: 174.3, V86.0, ICD10: C50.311, Z17.0 (primary diagnosis) 2. Malignant neoplasm metastatic to lung, unspecified laterality (HCC) - ICD9: 197.0, ICD10: C78.00 3. Malignant neoplasm metastatic to bone (HCC) - ICD9: 198.5, ICD10: C79.51 4. HER2-positive carcinoma of breast (HCC) - ICD9: 174.9, ICD10: C50.919 - Overall tolerating treatment well except for mild diarrhea during off week of xeloda. Tolerating herceptin/tucatinib well. - Reviewed CBC/CMP with pt. - Continue current medications. - Pt. plans to start next cycle on xeloda today. - Continue tucatinib at current dose. - Proceed as scheduled tomorrow for herceptin. - Per pt. request please change next OV to Dr. Rivers 03/21 @ 8:30 and then Nov. OV to me. - Pt. aware to call office with any questions/concerns. The patient indicates understanding of these issues and agrees with the plan. All documentation from previous visit of 02/03/24-Dr. Rivers/myself was copied and pasted, documentation has been reviewed and edited as necessary for today's visit. Caity Cote APRN.ALESSANDRO documented in this encounter [facility] 02-03-2024 Telephone encounter Note This was sent in 02/02/2024. Jazlyn Harding LPN [facility] 02-03-2024 Miscellaneous Notes This was sent in 02/02/2024. Jazlyn Harding LPN documented in this encounter [facility] 02-03-2024 History of Presen t illness Narrative Chief Complaint Patient presents with: Established Patient HPI: Renate Christiansen is a 68 year old female who presents here today for evaluation for treatment on Tuesday. Per Dr. Rivers's previous notes: H/o pt. discovered a lump on the lower inner portion of her right breast in the fall of 2015. She was seen at [facility] and underwent a right sided core biopsy on 02/16/2016 by interventional radiology. The tissue specimen demonstrated invasive ductal carcinoma, Sorento grade 2. ER positive (90%, very weak) and WV negative (0%). HER-2 was quantified at 3+. [...] 3) Nerlyx-stopped d/t diarrhea. Last dose of neratinib . I'm never taking that again. Seen here in early March for complaint of right breast fullness and tenderness. Diagnostic mammogram done on 03/07/2019 did not demonstrate a mass within the breast however on ultrasound there was a 0.8 cm x 0.6 cm x 0.9 cm lobulated mass with an indistinct margin in the right breast at 1:00 anterior depth 6 cm in the nipple. It was lobulated and hypoechoic with internal echoes. This corresponded to the tender area. There was also a 1.2 x 0.9 x 2 cm lobulated mass with a circumscribed margin in the right breast at 2:00 anterior depth 7 cm from the nipple. It also was hypoechoic with internal echoes. And it also was tender on exam. Patient next underwent ultrasound-guided right breast needle core biopsy 2 on 03/22/2019. Pathology: MICROSCOPIC DIAGNOSIS A. Right breast at 1 o clock, core biopsy: Invasive ductal carcinoma with the following characteristics: Maximal length - 10 mm Nuclear grade - 3/3 Other findings - ductal carcinoma in situ, nuclear 3/3 with focal comedo necrosis. B. Right breast at 2 o clock, core biopsy: Invasive ductal carcinoma with the following characteristics: Maximal length - 1.2 mm Nuclear grade - 2-3/3 ANTIBODY / CLONE RESULT Block A P53 (DO-7) positive, >90% Ki-67 (30-9) positive, 12% CK8 ([id number]) positive CK5-6 (D5 & 1684) negative Calponin-1 ([id number]) negative P40 (BC28) negative E-Cad (ECH-6) positive MORPHOMETRIC ANALYSIS ER (clone 6F11) 15%, weak intensity WV (clone 16/1E2) 0% Her-2Neu (clone CB11) 3+ Block B Calponin-1 ([id number]) negative P40 (BC28) negative CK8 ([id number]) positive INTERPRETATION: A. Right breast 1 o clock, biopsy: Invasive ductal carcinoma, grade 3/3. Positive for estrogen receptors (favorable prognostic indicator). Negative for progesterone receptors (unfavorable prognostic indicator). Positive for overexpression of HDQ0tdj. B. Right breast 2 o clock, biopsy: Invasive ductal carcinoma, grade 2-3/3. Then underwent right breast modified mastectomy along with axillary lymph node dissection on 04/02/2019. Pathology: MICROSCOPIC DIAGNOSIS Right breast, modified radical mastectomy: Invasive ductal carcinoma x2. Ductal carcinoma in situ. Five out of five lymph nodes, negative for metastatic carcinoma. Hyalinized fibroadenomas x2. See cancer summary below. SJ:breann 04/05/19 INVASIVE BREAST CANCER SUMMARY: Specimen - total breast (including nipple and skin). Procedure - total mastectomy (including nipple and skin). Lymph node sampling - axillary dissection Specimen integrity - single, intact specimen Specimen laterality - right Tumor site - inner quadrant Tumor size: size of largest invasive carcinoma - 3.5 x 1.5 x 1.5 cm Tumor focality - two foci of invasive carcinoma Size of individual foci - 3.5 x 1.5 x 1.5 cm and 2 x 2 x 1 cm Macroscopic and Microscopic extent of tumor: Skin - invasive carcinoma does not invade into the dermis or epidermis. Nipple - DCIS does not involve nipple epidermis. Skeletal muscle - Skeletal muscle is present and is free of carcinoma. Ductal carcinoma in situ (DCIS) - present Extensive intraductal component (EIC) - negative Estimated size (extent) of DCIS - DCIS is present in the area of invasive carcinoma and comprise about 5% of the total tumor volume. Number of blocks with DCIS - 7 Number of blocks examined (breast tissue) - 16 Architectural patterns - cribriform and comedo Nuclear grade - grade 3 (high) Necrosis - present, central (expansive comedo necrosis) Lobular carcinoma in situ (LCIS) - not identified Histologic type of invasive carcinoma - invasive ductal carcinoma (no special type) Histologic Grade (Yohan grade): Glandular/tubular differentiation - score 3 Nuclear pleomorphism - score 3 Mitotic count - score 2 Overall grade - 3 (score of 8) Both tumor show similar morphologic features. Margins - larger focus of invasive carcinoma is present at the closest posterior margin of the specimen. - smaller focus of invasive carcinoma is 1.7 cm away from closest superior margin. - Margins are free of ductal carcinoma in situ. Treatment effect: Response to presurgical (neoadjuvant) therapy - no known presurgical therapy. Lymph-Vascular invasion - not identified Dermal lymph-vascular invasion - not identified Lymph nodes: Number of sentinel lymph nodes examined - 0 Total number of lymph nodes examined (sentinel and nonsentinel) - 5 Number of lymph nodes with macrometastases, micrometastases and isolated tumor cells - 0 Distant metastasis - not applicable Additional pathologic findings - hyalinized fibroadenomas x2 with focal calcifications. See comment. - Dense fibrosis and lobular involution. Ancillary studies - previously performed on section of tumor ([id number] / [id number]). ER - positive (15%, weak intensity) WV - negative (0%) Her2 krista - positive (3+) Microcalcifications - present in both invasive carcinoma and non-neoplastic tissue. Clinical history - Please make reference to previous specimen ([id number]) right breast at 1 o clock and right breast at 2 o clock core biopsies with diagnosis of invasive ductal carcinoma. PATHOLOGIC STAGE: pT2(m) pN0 Mx Evidently the larger focus of cancer was down to the chest wall muscle. Other significant past medical history was asymptomatic decline in ejection fraction 1 receiving Herceptin. Serial echocardiograms--March 2016 at that time he demonstrated ejection fraction of 72%. Another echocardiogram in September 2016 demonstrated ejection fraction of 55%. In November 2016 was 50% and in May 2017 was 45% with mild global hypokinesis. managed with beta-ruth and ARB. Most recent echocardiogram from May 2018 revealed normal left ventricular size with systolic function at lower limits of normal estimated at 53%. The global longitudinal strain was -19.4% (normal) cis. Stage I diastolic dysfunction was observed. Pulmonary artery pressure was 27 mmHg. ---- Had staging CTs scans that suggested lung metastases. Not able to biopsy. Previous therapy: 1) Taxotere/Herceptin/Perjeta. 2) Herceptin/Perjeta. Discontinued 01/2021 for progressive disease. 3) Kadcyla. 02/2021 through 07/2021. Discontinued secondary to significant worsening of neuropathy. 4) SBRT DYLAN metastasis completed 03/02/2023. 5) Enhertu. 6) RT right lung 09/30/2023. Current therapy: 1) Capecitabine, tukatinib and trastuzumab. Completed levaquin. Re-started xeloda and lower dose and tucatinib same dose on 01/16/24. Currently on off week of xeloda. Pt. here today with spouse. Appetite:It's excellent. Wt. up 1# Energy level:Pretty good. Denies fevers. Mouth:denies sores Resp:denies cough or sob Cardiac:denies chest pain/palpitations GI:denies abd pain, n/v, diarrhea during off week of xeloda-2 imodium usually :denies dysuria/hematuria Extrem:denies pain Endo:denies hot flashes Neuro:+neuropathy stable Skin:denies rashes Heme:denies bleeding The ROS is otherwise negative. Past medical history, appointments, medications, allergies reviewed. No changes. EXAM: BP 114/61 Pulse 74 Temp 36.3 C (97.3 F) (Temporal) Wt 80.3 kg (177 lb) SpO2 100% BMI 33.44 kg/m APPEARANCE Well appearing, alert, in no acute distress, well-hydrated, well nourished. HEART RRR with normal S1 and S2, no murmurs LUNG clear to auscultation LYMPH NODES No cervical lymphadenopathy, No supraclavicular lymphadenopathy, and No axillary lymphadenopathy. ABDOMEN bowel sounds normoactive, soft, non-tender, non-distended EXTREMITIES No edema NEURO Awake, alert and oriented x 3, using a cane, and No involuntary motions. SKIN Skin color, texture, turgor normal, no suspicious rashes or lesions LABS: Latest Ref Rng 01/04/2024 01/16/2024 02/03/2024 WBC 3.70 - 11.00 k/uL 4.33 3.33 (L) 4.09 (P) RBC 3.90 - 5.20 m/uL 3.21 (L) 3.19 (L) 2.92 (L) (P) Hemoglobin 11.5 - 15.5 g/dL 11.3 (L) 11.3 (L) 11.0 (L) (P) Hematocrit 36.0 - 46.0 % 33.2 (L) 33.9 (L) 32.3 (L) (P) MCV 80.0 - 100.0 fL 103.4 (H) 106.3 (H) 110.6 (H) (P) MCH 26.0 - 34.0 pg 35.2 (H) 35.4 (H) 37.7 (H) (P) MCHC 30.5 - 36.0 g/dL 34.0 33.3 34.1 (P) RDW-CV 11.5 - 15.0 % 20.5 (H) 20.0 (H) 19.6 (H) (P) Platelet Count 150 - 400 k/uL 149 (L) 79 (L) 172 (P) MPV 9.0 - 12.7 fL 9.1 9.5 9.4 (P) Neut% % 58.2 51.4 Abs Neut (ANC) 1.45 - 7.50 k/uL 2.52 1.71 Lymph% % 18.0 23.7 Abs Lymph 1.00 - 4.00 k/uL 0.78 (L) 0.79 (L) Cotton% % 12.7 15.6 Abs Cotton <0.87 k/uL 0.55 0.52 Eosin% % 10.4 8.1 Abs Eosin <0.46 k/uL 0.45 0.27 Baso% % 0.2 0.6 Abs Baso <0.11 k/uL <0.03 <0.03 Immature Gran % % 0.5 0.6 IMMATURE GRANS (ABS) <0.10 k/uL <0.03 <0.03 NRBC /100 WBC 0.0 0.0 Absolute nRBC <0.01 k/uL <0.01 <0.01 DTYPE Auto Auto CMP: Pending ASSESSMENT/PLAN: 1. Malignant neoplasm of lower-inner quadrant of right breast of female, estrogen receptor positive (HCC) - ICD9: 174.3, V86.0, ICD10: C50.311, Z17.0 (primary diagnosis) 2. Malignant neoplasm metastatic to lung, unspecified laterality (HCC) - ICD9: 197.0, ICD10: C78.00 3. Malignant neoplasm metastatic to bone (HCC) - ICD9: 198.5, ICD10: C79.51 4. HER2-positive carcinoma of breast (HCC) - ICD9: 174.9, ICD10: C50.919 5. Chemotherapy induced diarrhea - ICD9: 787.91, E933.1, ICD10: K52.1, T45.1X5A - Overall tolerating treatment well except for mild diarrhea during off week of xeloda. Tolerating herceptin/tucatinib well. - Reviewed CBC/ECHO/CT chest with pt. - CMP pending. - Continue current medications. - Pt. plans to start next cycle on xeloda on Tuesday. - Continue tucatinib at current dose. - Proceed as scheduled on Tuesday for herceptin pending all labs. - Follow up as scheduled. - Pt. aware to call office with any questions/concerns. The patient indicates understanding of these issues and agrees with the plan. All documentation from previous visit of 01/04/24-Dr. Rivers was copied and pasted, documentation has been reviewed and edited as necessary for today's visit. Caity Cote APRN.ALESSANDRO documented in this encounter [facility] 01-13-2024 Telephone encounter Note Patient informed of 01/15 appointment [facility] Work Phone: 01-13-2024 Miscellaneous Notes Patient informed of 01/15 appointment Treatment moved as requested. Future appointments rescheduled. 1st attempt. Message left for patient to contact office to confirm Tuesday appointment for treatment. With lab and office visit? Dr. Rivers would like to move patients Herceptin treatment up to next week, Tuesday or Tuesday. Please contact patient to schedule. Carla Almonte RN documented in this encounter [facility] 01-13-2024 Telephone encounter Note Treatment moved as requested. Future appointments rescheduled. 1st attempt. Message left for patient to contact office to confirm Tuesday appointment for treatment. [facility] 01-13-2024 Telephone encounter Note With lab and office visit? [facility] 01-12-[address] Rivers would like to move patients Herceptin treatment up to next week, Tuesday or Tuesday. Please contact patient to schedule. Carla Almonte RN [facility] 01-11-2024 Telephone encounter Note New order faxed. Jazlyn Harding LPN [facility] 01-11-2024 Miscellaneous Notes New order faxed. Jazlyn Harding LPN Reed from [facility] calling to ask if Dr. Rivers wants a regular echo or a limited echo? If limited is ok, will need new order. (Order pended just in case) Limited Oncology echo will check everything but the valves. Reed Jazlyn Harding LPN documented in this encounter [facility] 01-11-2024 Telephone encounter Note Reed from [facility] calling to ask if Dr. Rivers wants a regular echo or a limited echo? If limited is ok, will need new order. (Order pended just in case) Limited Oncology echo will check everything but the valves. Reed Jazlyn Harding LPN [facility] 01-10-2024 Telephone encounter Note Spoke to patient. Patient stated she forgot that she hasn't taken today's dose and will be done on Tuesday. Patient will continue with the original plan of resuming Tuesday. Carla Almonte RN [facility] 01-10-2024 Miscellaneous Notes Spoke to patient. Patient stated she forgot that she hasn't taken today's dose and will be done on Tuesday. Patient will continue with the original plan of resuming Tuesday. Carla Almonte RN Patient informed of Dr. Rivers's response, stated understanding. Patient has 6 tablets of Levaquin left, she will finish on Tuesday. Okay to resume as directed or would you like her to postpone starting until Tuesday? Thank you. Carla Almonte RN Called patient, no answer, left a requesting a call back. Carla Almonte RN She should complete the antibiotic this Tuesday or Tuesday. On Tuesday she can start a new cycle of capecitabine with 3 tablets in the morning and 2 tablets in the evening. Restart Tukysa that day. Lets keep her office visit scheduled the way it is for now. Plan to restart Herceptin in a few weeks. Rip Rivers DO Patient stated she is only taking lopressor 25 mg in the AM, in the evening I'm fine I don't have any BP issues. SOB Do you feel short of breath? No, not anymore Any pain with breathing? no FEVER Do you have a recent fever? no COUGH Do you have a cough? Yes yesterday was a really bad day it wasn't the night. Is your cough productive? No dry hacky cough What color is the sputum? N/A Does your cough worsen with activity? No when I'm sitting down. When I'm walking and doing stuff I'm fine. Patient had 3 bad episodes yesterday that lasted for a minute. Patient would drink water and suck on hard candy and then it goes away. Does your cough worsen when you lie down? No Are you taking anything for the cough? On Levaquin. Drinking water, sucking on hard candy Patient feels she is improving. Yesterday was the only day I had been hacking. Patient stated the cough has improved today I haven't coughed at all. Carla Almonte RN documented in this encounter [facility] 01-10-2024 Telephone encounter Note Patient informed of Dr. Rivers's response, stated understanding. Patient has 6 tablets of Levaquin left, she will finish on Tuesday. Okay to resume as directed or would you like her to postpone starting until Tuesday? Thank you. Carla Almonte RN [facility] 01-10-2024 Telephone encounter Note Called patient, no answer, left a requesting a call back. Carla Almonte RN [facility] 01-09-2024 Telephone encounter Note She should complete the antibiotic this Tuesday or Tuesday. On Tuesday she can start a new cycle of capecitabine with 3 tablets in the morning and 2 tablets in the evening. Restart Tukysa that day. Lets keep her office visit scheduled the way it is for now. Plan to restart Herceptin in a few weeks. Rip Rivers DO T [facility] 01-09-2024 Telephone encounter Note Patient stated she is only taking lopressor 25 mg in the AM, in the evening I'm fine I don't have any BP issues. SOB Do you feel short of breath? No, not anymore Any pain with breathing? no FEVER Do you have a recent fever? no COUGH Do you have a cough? Yes yesterday was a really bad day it wasn't the night. Is your cough productive? No dry hacky cough What color is the sputum? N/A Does your cough worsen with activity? No when I'm sitting down. When I'm walking and doing stuff I'm fine. Patient had 3 bad episodes yesterday that lasted for a minute. Patient would drink water and suck on hard candy and then it goes away. Does your cough worsen when you lie down? No Are you taking anything for the cough? On Levaquin. Drinking water, sucking on hard candy Patient feels she is improving. Yesterday was the only day I had been hacking. Patient stated the cough has improved today I haven't coughed at all. Carla Almonte, RN T [facility] 01-06-2024 Telephone encounter Note Spoke with outpatient scheduler from [facility] and the order was changed to be an echo and not an oncology echo and the codes work (except for the first one) and patient is good to go. Alexia Stephens [facility] 01-06-2024 Miscellaneous Notes Spoke with outpatient scheduler from [facility] and the order was changed to be an echo and not an oncology echo and the codes work (except for the first one) and patient is good to go. Alexia Stephens Dr. Rivers- please file new order. Jazlyn Harding LPN Spoke with staff at [facility] to schedule ECHO and neither ICD10 code will pass/work with the patient's insurance for approval. Please advise/change orders to a difference diagnosis code. Alexia Stephens Dr. Rivers- please file order. PSS- please assist in scheduling echo at [facility]. Jazlyn Harding LPN Call placed to patient. Reviewed instructions and pt voices understanding. Echo order placed. echocardiogram to be done at [facility], Dr. Galeano to read. 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 PSS please assist with scheduling. Bruna Mcmanus LPN CT scan shows worsening inflammation in the right upper lung but it does not have the classic look of a drug-induced pneumonitis. May be a pneumonia so I would like her to take Levaquin. Rx sent. Continue to hold Herceptin, Tukysa and capecitabine for now. Please pend order for echocardiogram to be done at [facility], Dr. Galeano to read. Would like that done as soon as able. Let's check in with her early next week regarding her symptoms of cough and getting short of breath when lying down. Rip Rivers DO documented in this encounter [facility] 01-06-[address] Rivers- please file new order. Jazlyn Harding LPN [facility] 01-06-2024 Telephone encounter Note Spoke with staff at [facility] to schedule ECHO and neither ICD10 code will pass/work with the patient's insurance for approval. Please advise/change orders to a difference diagnosis code. Alexia Stephens [facility] 01-06-[address] Rivers- please file order. PSS- please assist in scheduling echo at [facility]. Jazlyn Harding LPN [facility] 01-05-2024 Telephone encounter Note Call placed to patient. Reviewed instructions and pt voices understanding. Echo order placed. echocardiogram to be done at [facility], Dr. Galeano to read. 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 PSS please assist with scheduling. Bruna Mcmanus LPN [facility] 01-04-[address] scan shows worsening inflammation in the right upper lung but it does not have the classic look of a drug-induced pneumonitis. May be a pneumonia so I would like her to take Levaquin. Rx sent. Continue to hold Herceptin, Tukysa and capecitabine for now. Please pend order for echocardiogram to be done at [facility], Dr. Galeano to read. Would like that done as soon as able. Let's check in with her early next week regarding her symptoms of cough and getting short of breath when lying down. Rip Rivers DO [facility] 01-04-2024 History of Presen t illness Narrative Radiology Service Progress Note PATIENT NAME: Renate Christiansen DATE OF SERVICE: January 04, 2024 TIME: 11:16 AM PATIENT IDENTITY VERIFICATION COMPLETED USING TWO (2) IDENTIFIERS: Name and Date of confirmed by patient verbally. FALL SCREENING: Has the patient had 2 falls in the last year or 1 fall with injury or currently using an Ambulatory Assistive Device (Walker, Cane, Wheelchair, Crutches, etc.)? Yes, Patient High Risk for Falls What interventions were put in place to prevent falls during this visit? Instructed Patient to Call for Help if Needed, Offered Assistance with Transfers/Clothing, and Increased Observations by Caregivers PATIENT GENDER DATA: Female. status: : No status: NO. PATIENT RELEVANT IMPLANT DATA REVIEWED: Yes PATIENT PRESENTS WITH AN IMPLANTABLE OR ATTACHED PUBLICATIONS EDITOR: No RADIOLOGY DEPARTMENT: General X-ray: Exam(s) Completed: Chest X-Ray PERIPHERAL IV DATA: Not applicable SIGNED BY: RT Jamar(R) January 04, 2024 11:16 AM documented in this encounter [facility] 01-04-2024 History of Presen t illness Narrative Oncologic problem(s): 1) Metastatic recurrence of ER positive, WV negative, HER2 positive breast cancer. 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 HPI: The patient is a 67 year old female who discovered a lump on the lower inner portion of her right breast in the fall of 2015. She was seen at [facility] and underwent a right sided core biopsy on 02/16/2016 by interventional radiology. The tissue specimen demonstrated invasive ductal carcinoma, Yohan grade 2. ER positive (90%, very weak) and WV negative (0%). HER-2 was quantified at 3+. [...] 3) Nerlyx-stopped d/t diarrhea. Last dose of neratinib . I'm never taking that again. Seen here in early March for complaint of right breast fullness and tenderness. Diagnostic mammogram done on 03/07/2019 did not demonstrate a mass within the breast however on ultrasound there was a 0.8 cm x 0.6 cm x 0.9 cm lobulated mass with an indistinct margin in the right breast at 1:00 anterior depth 6 cm in the nipple. It was lobulated and hypoechoic with internal echoes. This corresponded to the tender area. There was also a 1.2 x 0.9 x 2 cm lobulated mass with a circumscribed margin in the right breast at 2:00 anterior depth 7 cm from the nipple. It also was hypoechoic with internal echoes. And it also was tender on exam. Patient next underwent ultrasound-guided right breast needle core biopsy 2 on 03/22/2019. Pathology: MICROSCOPIC DIAGNOSIS A. Right breast at 1 o clock, core biopsy: Invasive ductal carcinoma with the following characteristics: Maximal length - 10 mm Nuclear grade - 3/3 Other findings - ductal carcinoma in situ, nuclear 3/3 with focal comedo necrosis. B. Right breast at 2 o clock, core biopsy: Invasive ductal carcinoma with the following characteristics: Maximal length - 1.2 mm Nuclear grade - 2-3/3 ANTIBODY / CLONE RESULT Block A P53 (DO-7) positive, >90% Ki-67 (30-9) positive, 12% CK8 (20aoevE19) positive CK5-6 (D5 & 1684) negative Calponin-1 (WI933P) negative P40 (BC28) negative E-Cad (ECH-6) positive MORPHOMETRIC ANALYSIS ER (clone 6F11) 15%, weak intensity WV (clone 16/1E2) 0% Her-2Neu (clone CB11) 3+ Block B Calponin-1 (EP052Z) negative P40 (BC28) negative CK8 (23drtcG75) positive INTERPRETATION: A. Right breast 1 o clock, biopsy: Invasive ductal carcinoma, grade 3/3. Positive for estrogen receptors (favorable prognostic indicator). Negative for progesterone receptors (unfavorable prognostic indicator). Positive for overexpression of EJT9tiz. B. Right breast 2 o clock, biopsy: Invasive ductal carcinoma, grade 2-3/3. Then underwent right breast modified mastectomy along with axillary lymph node dissection on 04/02/2019. Pathology: MICROSCOPIC DIAGNOSIS Right breast, modified radical mastectomy: Invasive ductal carcinoma x2. Ductal carcinoma in situ. Five out of five lymph nodes, negative for metastatic carcinoma. Hyalinized fibroadenomas x2. See cancer summary below. SJ:breann 04/05/19 INVASIVE BREAST CANCER SUMMARY: Specimen - total breast (including nipple and skin). Procedure - total mastectomy (including nipple and skin). Lymph node sampling - axillary dissection Specimen integrity - single, intact specimen Specimen laterality - right Tumor site - inner quadrant Tumor size: size of largest invasive carcinoma - 3.5 x 1.5 x 1.5 cm Tumor focality - two foci of invasive carcinoma Size of individual foci - 3.5 x 1.5 x 1.5 cm and 2 x 2 x 1 cm Macroscopic and Microscopic extent of tumor: Skin - invasive carcinoma does not invade into the dermis or epidermis. Nipple - DCIS does not involve nipple epidermis. Skeletal muscle - Skeletal muscle is present and is free of carcinoma. Ductal carcinoma in situ (DCIS) - present Extensive intraductal component (EIC) - negative Estimated size (extent) of DCIS - DCIS is present in the area of invasive carcinoma and comprise about 5% of the total tumor volume. Number of blocks with DCIS - 7 Number of blocks examined (breast tissue) - 16 Architectural patterns - cribriform and comedo Nuclear grade - grade 3 (high) Necrosis - present, central (expansive comedo necrosis) Lobular carcinoma in situ (LCIS) - not identified Histologic type of invasive carcinoma - invasive ductal carcinoma (no special type) Histologic Grade (Sorento grade): Glandular/tubular differentiation - score 3 Nuclear pleomorphism - score 3 Mitotic count - score 2 Overall grade - 3 (score of 8) Both tumor show similar morphologic features. Margins - larger focus of invasive carcinoma is present at the closest posterior margin of the specimen. - smaller focus of invasive carcinoma is 1.7 cm away from closest superior margin. - Margins are free of ductal carcinoma in situ. Treatment effect: Response to presurgical (neoadjuvant) therapy - no known presurgical therapy. Lymph-Vascular invasion - not identified Dermal lymph-vascular invasion - not identified Lymph nodes: Number of sentinel lymph nodes examined - 0 Total number of lymph nodes examined (sentinel and nonsentinel) - 5 Number of lymph nodes with macrometastases, micrometastases and isolated tumor cells - 0 Distant metastasis - not applicable Additional pathologic findings - hyalinized fibroadenomas x2 with focal calcifications. See comment. - Dense fibrosis and lobular involution. Ancillary studies - previously performed on section of tumor ([id number] / [id number]). ER - positive (15%, weak intensity) WV - negative (0%) Her2 krista - positive (3+) Microcalcifications - present in both invasive carcinoma and non-neoplastic tissue. Clinical history - Please make reference to previous specimen ([id number]) right breast at 1 o clock and right breast at 2 o clock core biopsies with diagnosis of invasive ductal carcinoma. PATHOLOGIC STAGE: pT2(m) pN0 Mx Evidently the larger focus of cancer was down to the chest wall muscle. Other significant past medical history was asymptomatic decline in ejection fraction 1 receiving Herceptin. Serial echocardiograms--March 2016 at that time he demonstrated ejection fraction of 72%. Another echocardiogram in September 2016 demonstrated ejection fraction of 55%. In November 2016 was 50% and in May 2017 was 45% with mild global hypokinesis. managed with beta-ruth and ARB. Most recent echocardiogram from May 2018 revealed normal left ventricular size with systolic function at lower limits of normal estimated at 53%. The global longitudinal strain was -19.4% (normal) cis. Stage I diastolic dysfunction was observed. Pulmonary artery pressure was 27 mmHg. ---- Had staging CTs scans that suggested lung metastases. Not able to biopsy. Previous therapy: 1) Taxotere/Herceptin/Perjeta. 2) Herceptin/Perjeta. Discontinued 01/2021 for progressive disease. 3) Kadcyla. 02/2021 through 07/2021. Discontinued secondary to significant worsening of neuropathy. 4) SBRT DYLAN metastasis completed 03/02/2023. 5) Enhertu. 6) RT right lung 09/30/2023. Current therapy: 1) Capecitabine, tukatinib and trastuzumab. Interim history: Gets diarrhea off week capecitabine. Hydrating well. New orthopnea/PND. No swelling. No weight gain. Had cough intermittently. Dry cough. Subcutaneous metastasis on the anterior lower chest wall remains no longer palpable to her. 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 Symptoms remain well controlled and stable. PMH, medications and allergies personally reviewed by me today. Any changes documented in appropriate section. ROS: Constitutional: Denies episodes of fever and night sweats. Not significantly fatigued. Normal appetite. Neuro: Denies [place], vertigo, dizziness and imbalance. HEENT: No recent change in voice, vision or hearing. Resp: See above. CVS: See above. GI: Denies dysgeusia. Denies symptoms of stomatitis. Denies dysphagia and odynophagia. Denies abdominal pain. : Denies dysuria or gross hematuria. No symptoms of bladder outlet obstruction. Endo: Denies hot flashes. Denies polyuria and polydipsia. Denies heat and cold intolerance. Musculoskeletal: Denies bone, back, joint and muscular pain. Derm: Denies rash. Denies jaundice and diffuse pruritis. Heme: Denies unusual bleeding and unexplained bruising. Psych: Normal mood. PHYSICAL EXAM: Vitals: Blood pressure 93/57, pulse 67, temperature 36.9 C (98.5 F), temperature source Temporal, weight 80.7 kg (178 lb), SpO2 96%. Well-appearing and in no acute distress. EYES: Sclerae are anicteric bilaterally. LYMPHATIC: There is no palpable cervical, supraclavicular adenopathy. RESPIRATORY: Normal vesicular breath sounds but is diminished in the left base. No rales, wheezes or rhonchi. CARDIOVASCULAR: Rhythm is regular. BREAST: Not examined today. ABDOMEN: The abdomen is nondistended. Extremities: No swelling or edema. SKIN: Continued resolution of subcutaneous metastasis near xyphoid. LABS: ASSESSMENT/PLAN: (C50.311, Z17.0) Malignant neoplasm of lower-inner quadrant of right breast of female, estrogen receptor positive (HCC) (primary encounter diagnosis) (C79.51) Bone metastases (HCC) (C78.01, C78.02) Malignant neoplasm metastatic to both lungs (HCC) (I42.7, T45.1X5A) Chemotherapy-induced cardiomyopathy (HCC) Assessment: -Originally pT2 pN0(sln) MX ER positive (9%, very weak) WV negative HER overexpressed stage IIA invasive ductal carcinoma the right breast. -Recurrent pT2(m) pN0 (none of 5 LNs) MX ER +(15%, weak intensity)/WV negative (0%) HER2 3+ invasive ductal carcinoma the right breast while on AI (anastrozole). Posterior margin positive--more than just focal according to pathologist. Pectoralis fascia rem she calixto. Staging workup revealed multiple lung metastases, not biopsy proven. -Tolerated Enhertu overall very well but recent progressive disease with right lung metastasis. PET scan demonstrated that to be only site of radiographically evident disease. Reviewed CT scans. New groundglass infiltrate right lung. Previous radiated nodule decreased in size. -New onset orthopnea/PND. -Hypotension. -Diarrhea. -GRICELDA. Plan: -Losartan to 50 mg daily. -CXR today. -CT chest STAT to rule out pneumonitis. -Hold Herceptin tomorrow. -Okay to start cycle capecitabine this Tuesday. -Hold tucatinib. -Continue metoprolol to 25 mg BID. -Continue Lyrica 150 mg at HS. -Holding Zometa for now until serum Cr. better. Every 3 months. -Repeat echo if no sign pneumonitis. -Continue follow-up with Dr. Galeano. -Previously stopped IBU for increase in serum Cr. (G62.0, T45.1X5A) Chemotherapy-induced neuropathy (HCC) Assessment: -No subjective change. -Symptoms remain well controlled with Lyrica. Plan: -Continue Lyrica 150 mg twice daily. Thyroid nodules. Stable on US fall 2022 and re cent PET 08/2023. One year follow up recommended. Portions of this documentation were copied and pasted from previous office visit notes in order to provide a cohesive continuity of the history. The note has been reviewed and edited and updated as necessary. I spent a total of 20 minutes on the date of the service which included preparing to see the patient, [id number] patient care, completing clinical documentation, obtaining and/or reviewing separately obtained history, performing a medically appropriate examination, counseling and educating the patient/family/caregiver, ordering medications, tests, or procedures, communicating with other HCPs (not separately reported), and communicating results to the patient/family/caregiver. Rip Rivers DO documented in this encounter [facility] 12-30-2023 History of Presen t illness Narrative [facility] Refill Assessment Medication(s): Capecitabine Patient's current medication list and adherence status to current therapy were reviewed by Specialty Pharmacy clinical pharmacist to identify any new drug interactions or non-compliance to therapy. Therapy continues to be appropriate for disease, patient response, and medical condition. Verification of therapeutic benefit and effectiveness with current therapy was completed. Adverse events, barriers in adherence, and side effects were assessed and addressed if applicable. Will proceed with refill with no changes in therapy - patient progressing towards achieving therapeutic goals based on medication-specific laboratory parameters, disease state markers and outcomes. 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 Patient confirmed: Yes Med/dose confirmed: Yes Supplies needed: No supplies needed Missed doses: No Estimated days supply on hand: 0 Next cycle/dose due: 01/06/24 Copay amount: 0 Copay form of payment: (N/A) Payment confirmed: Yes Delivery method: FedEx Signature required: No Delivery address: [address] [place] [address] Delivery date: 01/03/24 (Pt not expecting changes to therapy due to upcoming OV/labs and did not want to schedule delivery after OV/labs) Questions or concerns for the pharmacist?: No Did you have any side effects believed to be related to this medication, that resulted in hospitalization?: No Current Outpatient Medications on File Prior to Visit Medication Sig metoprolol tartrate, short acting, (LOPRESSOR) 25 mg tablet Take 1 tablet by mouth twice daily pregabalin (LYRICA) 150 mg capsule Take 1 capsule by mouth two times a day for 180 days. capecitabine (XELODA) 500 mg tablet Take 3 tablets (1500 mg) by mouth twice daily with food for 14 days then 7 days off. tucatinib (TUKYSA) 50 mg tablet Take 1 tablet (50 mg) by mouth two times a day with 1 other tucatinib prescription for 200 mg total. tucatinib (TUKYSA) 150 mg tablet Take 1 tablet (150 mg) by mouth two times a day with 1 other tucatinib prescription for 200 mg total. promethazine (PHENERGAN) 25 mg tablet Take 1 tablet by mouth every 6 hours as needed. FOR NAUSEA loratadine (CLARITIN) 10 mg tablet Take 10 mg by mouth once daily. losartan (COZAAR) 50 mg tablet Take 2 tablets by mouth once daily. ascorbic acid/bioflavonoids (MARY C ORAL) Take 500 mg by mouth once daily. loperamide HCl (IMODIUM) 2 mg tab Take 2 mg by mouth as needed. multivitamin tablet Take 1 tablet by mouth once daily. diphenhydrAMINE (BENADRYL) 25 mg tablet Take 25 mg by mouth twice daily as needed. Current Facility-Administered Medications on File Prior to Visit Medication perflutren lipid microspheres 1.3 mL in NaCl (PF) 0.9% 10 mL injection (DEFINITY) sodium chloride 0.9 % (flush) 10 mL (BD POSIFLUSH) perflutren lipid microspheres 1.3 mL in NaCl (PF) 0.9% 10 mL injection (DEFINITY) sodium chloride 0.9 % (flush) 10 mL (BD POSIFLUSH) [facility] CLINICAL ASSESSMENT - HEMATOLOGY ONCOLOGY V6: Assessment to use: Refill Date of influenza vaccination reminder: 10/13/2023 Date of most recent vaccination assessment: 10/13/2023 Treatment Plan Information: Diagnosis: metastatic recurrence of ER+. WV-, Her2+ breast cancer Previous treatment(s): - Right sided lumpectomy and right axillary sentinel lymph node dissection - AC followed by paclitaxel/Herceptin - Adjuvant radiation - Nerlynx - Taxotere/Herceptin/Perjeta - Kadcyla - SBRT - Enhertu - RT Tx Plan: Herceptin + Capecitabine + Tukysa Starting Dose/Titration: Capecitabine 1500 mg BID for 14 days on, followed by 7 days off - 750 mg/m2 x 1.88 m2 = 1410 mg -> 1500 mg (dose reduced d/t renal function) - Confirmed with Dr. Rivers Administration: Take with water within 30 minutes after a meal. Swallow tablets whole. Warnings: include but are not limited to bone marrow suppression, cardiotoxicity (more common in pt with hx of coronary artery disease), GI toxicity, [id number] syndrome (onset ~79 days), hepatotoxicity (onset ~64 days - hyperbilirubinemia) Adverse reactions: include but are not limited to fatigue, rash, N/V/D/C (diarrhea: onset ~34 days, lasting ~ 5 days - risk dehydration), mucositis Emetogenicity: min to low (<30% frequency of emesis) - NCCN Monitoring: - CBC with differential, hepatic function, and renal function should be monitored. - Monitor INR closely if receiving concomitant warfarin. - Monitor for diarrhea, dehydration, hand-foot syndrome, Orantes-Kristofer syndrome, toxic epidermal necrolysis, stomatitis, and cardiotoxicity. - Monitor adherence. Drug-Drug Interactions: none Baseline: - CrCl 47 ml/min using adjusted body weight. 63 ml/min using actual Estimated Start Date Info: Per Dr. Rivers's discretion Est. Estimated Treatment Duration: Until disease progression or unacceptable toxicity Ruth Mejia documented in this encounter [facility] 12-22-2023 History of Presen t illness Narrative Radiology Service Progress Note DATE OF SERVICE: December 22, 2023 TIME: 12:46 PM PATIENT IDENTITY VERIFICATION COMPLETED USING TWO (2) STANDARD IDENTIFIERS: Name and Date of confirmed by patient verbally. FALL SCREENING: Has the patient had 2 falls in the last year or 1 fall with injury or currently using an Ambulatory Assistive Device (Walker, Cane, Wheelchair, Crutches, etc.)? No PATIENT GENDER DATA: Female. status: : No status: NO. PATIENT RELEVANT IMPLANT DATA REVIEWED: Yes PATIENT PRESENTS WITH AN IMPLANTABLE OR ATTACHED PUBLICATIONS EDITOR: No ALLERGIES: Reviewed and unchanged CONTRAST ALLERGY: NO. EXAM: CT -CONTRAST INDUCED NEPHROPATHY RISK FACTORS: Patient age > 60 years CREATININE: Creatinine Date Value Ref Range Status 12/15/2023 1.60 (H) 0.58 - 0.96 mg/dL Final 12/14/2023 1.77 (H) 0.58 - 0.96 mg/dL Final 11/23/2023 1.12 (H) 0.58 - 0.96 mg/dL Final Estimated Glomerular Filtration Rate Date Value Ref Range Status 12/15/2023 35 (L) >=60 mL/min/1.73m Final Comment: Estimated Glomerular Filtration Rate (eGFR) is calculated using the 2020 CKD-EPI creatinine equation. This equation utilizes serum creatinine, sex, and age as parameters. The creatinine assay has traceable calibration to isotope dilution-mass spectrometry. Refer to KDIGO guidelines for clinical interpretation. In patients with unstable renal function, e.g. those with acute kidney injury, the eGFR may not accurately reflect actual GFR. eGFR- Date Value Ref Range Status 07/20/2021 >60 Final P.O.C.T. RESULTS: N/A December 22, 2023 TREATMENT: N/A PERIPHERAL IV DATA: iv started in [facility] RADIOLOGY DEPARTMENT: CT; Exam(s) Completed: Chest Abdomen Pelvis SIGNATURE: RT Ashley(R) PATIENT NAME: Renate Christiansen DATE: December 22, 2023 TIME: 12:46 PM documented in this encounter [facility] 12-22-2023 Telephone encounter Note Spoke with patient and she will be in at 10 for hydration. Alexia Stephens [facility] 12-22-2023 Miscellaneous Notes Spoke with patient and she will be in at 10 for hydration. Alexia Stephens Please let patient know she can come in at 10 for her hydration prior to CT @ 11:20. Please schedule on 1st floor as 2nd floor already has appointments then. Chemo nurse (2nd floor), please advise of time for hydration. There has been increase in her serum creatinine very recently and looks like she has been having diarrhea. Could be from either Tukysa or capecitabine or both. I would definitely hydrate prior to CT scans. Rip Rivers DO Pt. Scheduled for CT scan tomorrow. 12/14 Cr 1.6 GFR 35 Tech questioning hydration prior to CT? Or do you want her redrawn tomorrow? Chrissie Elliott LPN documented in this encounter [facility] 12-21-2023 Telephone encounter Note Please let patient know she can come in at 10 for her hydration prior to CT @ 11:20. Please schedule on 1st floor as 2nd floor already has appointments then. [facility] 12-21-2023 Telephone encounter Note Chemo nurse (2nd floor), please advise of time for hydration. [facility] Work Phone: 12-21-2023 Telephone encounter Note There has been increase in her serum creatinine very recently and looks like she has been having diarrhea. Could be from either Tukysa or capecitabine or both. I would definitely hydrate prior to CT scans. Rip Rivers DO [facility] 12-21-2023 Telephone encounter Note Pt. Scheduled for CT scan tomorrow. 12/14 Cr 1.6 GFR 35 Tech questioning hydration prior to CT? Or do you want her redrawn tomorrow? Chrissie Elliott LPN [facility] 12-15-2023 History of Presen t illness Narrative Assessment unchanged from 12/14/23 office visit with Mary Cote CNP. CR today 1.6. Zometa held and to recheck on and give on 01/05/24 after repeat CMP documented in this encounter [facility] 12-15-2023 Telephone encounter Note Information given to patient verbalizing understandin [facility] 12-15-2023 Miscellaneous Notes Information given to patient verbalizing understandin Message left for patient to contact office. Jazlyn Harding LPN Please inform pt. that her potassium is normal. Advise pt. that she needs to drink more water-her creat. bumped up some. Thank you. Caity Cote APRN.TERRITORY DEVELOPMENT MANAGER documented in this encounter [facility] 12-14-2023 Telephone encounter Note Message left for patient to contact office. Jazlyn Harding LPN [facility] 12-14-2023 Telephone encounter Note Please inform pt. that her potassium is normal. Advise pt. that she needs to drink more water-her creat. bumped up some. Thank you. Caity Cote APRN.TERRITORY DEVELOPMENT MANAGER [facility] 12-14-2023 History of Presen t illness Narrative Chief Complaint Patient presents with: Established Patient HPI: Renate Christiansen is a 68 year old female who presents here today for evaluation for treatment tomorrow. Per Dr. Rivers's previous note: H/o discovered a lump on the lower inner portion of her right breast in the fall of 2015. She was seen at [facility] and underwent a right sided core biopsy on 02/16/2016 by interventional radiology. The tissue specimen demonstrated invasive ductal carcinoma, Sorento grade 2. ER positive (90%, very weak) and WV negative (0%). HER-2 was quantified at 3+. [...] 3) Nerlyx-stopped d/t diarrhea. Last dose of neratinib . I'm never taking that again. Seen here in early March for complaint of right breast fullness and tenderness. Diagnostic mammogram done on 03/07/2019 did not demonstrate a mass within the breast however on ultrasound there was a 0.8 cm x 0.6 cm x 0.9 cm lobulated mass with an indistinct margin in the right breast at 1:00 anterior depth 6 cm in the nipple. It was lobulated and hypoechoic with internal echoes. This corresponded to the tender area. There was also a 1.2 x 0.9 x 2 cm lobulated mass with a circumscribed margin in the right breast at 2:00 anterior depth 7 cm from the nipple. It also was hypoechoic with internal echoes. And it also was tender on exam. Patient next underwent ultrasound-guided right breast needle core biopsy 2 on 03/22/2019. Pathology: MICROSCOPIC DIAGNOSIS A. Right breast at 1 o clock, core biopsy: Invasive ductal carcinoma with the following characteristics: Maximal length - 10 mm Nuclear grade - 3/3 Other findings - ductal carcinoma in situ, nuclear 3/3 with focal comedo necrosis. B. Right breast at 2 o clock, core biopsy: Invasive ductal carcinoma with the following characteristics: Maximal length - 1.2 mm Nuclear grade - 2-3/3 ANTIBODY / CLONE RESULT Block A P53 (DO-7) positive, >90% Ki-67 (30-9) positive, 12% CK8 ([id number]) positive CK5-6 (D5 & 1684) negative Calponin-1 (ZB877N) negative P40 (BC28) negative E-Cad (ECH-6) positive MORPHOMETRIC ANALYSIS ER (clone 6F11) 15%, weak intensity WV (clone 16/1E2) 0% Her-2Neu (clone CB11) 3+ Block B Calponin-1 ([id number]) negative P40 (BC28) negative CK8 ([id number]) positive INTERPRETATION: A. Right breast 1 o clock, biopsy: Invasive ductal carcinoma, grade 3/3. Positive for estrogen receptors (favorable prognostic indicator). Negative for progesterone receptors (unfavorable prognostic indicator). Positive for overexpression of JPT5vux. B. Right breast 2 o clock, biopsy: Invasive ductal carcinoma, grade 2-3/3. Then underwent right breast modified mastectomy along with axillary lymph node dissection on 04/02/2019. Pathology: MICROSCOPIC DIAGNOSIS Right breast, modified radical mastectomy: Invasive ductal carcinoma x2. Ductal carcinoma in situ. Five out of five lymph nodes, negative for metastatic carcinoma. Hyalinized fibroadenomas x2. See cancer summary below. SJ:breann 04/05/19 INVASIVE BREAST CANCER SUMMARY: Specimen - total breast (including nipple and skin). Procedure - total mastectomy (including nipple and skin). Lymph node sampling - axillary dissection Specimen integrity - single, intact specimen Specimen laterality - right Tumor site - inner quadrant Tumor size: size of largest invasive carcinoma - 3.5 x 1.5 x 1.5 cm Tumor focality - two foci of invasive carcinoma Size of individual foci - 3.5 x 1.5 x 1.5 cm and 2 x 2 x 1 cm Macroscopic and Microscopic extent of tumor: Skin - invasive carcinoma does not invade into the dermis or epidermis. Nipple - DCIS does not involve nipple epidermis. Skeletal muscle - Skeletal muscle is present and is free of carcinoma. Ductal carcinoma in situ (DCIS) - present Extensive intraductal component (EIC) - negative Estimated size (extent) of DCIS - DCIS is present in the area of invasive carcinoma and comprise about 5% of the total tumor volume. Number of blocks with DCIS - 7 Number of blocks examined (breast tissue) - 16 Architectural patterns - cribriform and comedo Nuclear grade - grade 3 (high) Necrosis - present, central (expansive comedo necrosis) Lobular carcinoma in situ (LCIS) - not identified Histologic type of invasive carcinoma - invasive ductal carcinoma (no special type) Histologic Grade (Yohan grade): Glandular/tubular differentiation - score 3 Nuclear pleomorphism - score 3 Mitotic count - score 2 Overall grade - 3 (score of 8) Both tumor show similar morphologic features. Margins - larger focus of invasive carcinoma is present at the closest posterior margin of the specimen. - smaller focus of invasive carcinoma is 1.7 cm away from closest superior margin. - Margins are free of ductal carcinoma in situ. Treatment effect: Response to presurgical (neoadjuvant) therapy - no known presurgical therapy. Lymph-Vascular invasion - not identified Dermal lymph-vascular invasion - not identified Lymph nodes: Number of sentinel lymph nodes examined - 0 Total number of lymph nodes examined (sentinel and nonsentinel) - 5 Number of lymph nodes with macrometastases, micrometastases and isolated tumor cells - 0 Distant metastasis - not applicable Additional pathologic findings - hyalinized fibroadenomas x2 with focal calcifications. See comment. - Dense fibrosis and lobular involution. Ancillary studies - previously performed on section of tumor ([id number] / [id number]). ER - positive (15%, weak intensity) WV - negative (0%) Her2 krista - positive (3+) Microcalcifications - present in both invasive carcinoma and non-neoplastic tissue. Clinical history - Please make reference to previous specimen ([id number]) right breast at 1 o clock and right breast at 2 o clock core biopsies with diagnosis of invasive ductal carcinoma. PATHOLOGIC STAGE: pT2(m) pN0 Mx Evidently the larger focus of cancer was down to the chest wall muscle. Other significant past medical history was asymptomatic decline in ejection fraction 1 receiving Herceptin. Serial echocardiograms--March 2016 at that time he demonstrated ejection fraction of 72%. Another echocardiogram in September 2016 demonstrated ejection fraction of 55%. In November 2016 was 50% and in May 2017 was 45% with mild global hypokinesis. managed with beta-ruth and ARB. Most recent echocardiogram from May 2018 revealed normal left ventricular size with systolic function at lower limits of normal estimated at 53%. The global longitudinal strain was -19.4% (normal) cis. Stage I diastolic dysfunction was observed. Pulmonary artery pressure was 27 mmHg. ---- Had staging CTs scans that suggested lung metastases. Not able to biopsy. Previous therapy: 1) Taxotere/Herceptin/Perjeta. 2) Herceptin/Perjeta. Discontinued 01/2021 for progressive disease. 3) Kadcyla. 02/2021 through 07/2021. Discontinued secondary to significant worsening of neuropathy. 4) SBRT DYLAN metastasis completed 03/02/2023. 5) Enhertu. 6) RT right lung 09/30/2023. Current therapy: 1) Capecitabine, tukatinib and trastuzumab. Heels and toes hurt while on xeloda. No redness/cracking/peeling. +diarrhea I did not follow my diet this cycle. Last day of this cycle (C2) was last . Side effects improved by Tuesday. Pt. plans to start cycle #3 this Tuesday. Appetite:Fair. Wt. down 5# Energy level:Poor. Denies fevers. Mouth:denies sores Resp:denies cough or sob Cardiac:denies chest pain/palpitations GI:denies abd pain, one day of n/v-took phenergan with relief, +diarrhea this cycle-took imodium :denies dysuria/hematuria Extrem:denies pain Neuro:neuropathy stable Skin:denies rashes, as above Heme:denies bleeding The ROS is otherwise negative. Past medical history, appointments, medications, allergies reviewed. No changes. EXAM: BP 93/61 Pulse 62 Temp 36.3 C (97.3 F) (Temporal) Wt 80.7 kg (178 lb) SpO2 95% BMI 33.63 kg/m APPEARANCE Well appearing, alert, in no acute distress, well-hydrated, well nourished. HEART RRR with normal S1 and S2, no murmurs LUNG clear to auscultation LYMPH NODES No cervical lymphadenopathy, No supraclavicular lymphadenopathy, and No axillary lymphadenopathy. ABDOMEN bowel sounds normoactive, soft, non-distended, upper central abdominal fixed firm mass 3-4cm mild tenderness with palpation EXTREMITIES No edema NEURO Awake, alert and oriented x 3, Normal gait, and No involuntary motions. SKIN Skin color, texture, turgor normal, no suspicious rashes or lesions LABS: Latest Ref Rng 11/11/2023 11/23/2023 12/14/2023 WBC 3.70 - 11.00 k/uL 3.57 (L) 3.51 (L) 4.82 RBC 3.90 - 5.20 m/uL 4.00 3.55 (L) 3.50 (L) Hemoglobin 11.5 - 15.5 g/dL 13.5 12.2 12.0 Hematocrit 36.0 - 46.0 % 40.5 36.2 35.8 (L) MCV 80.0 - 100.0 fL 101.3 (H) 102.0 (H) 102.3 (H) MCH 26.0 - 34.0 pg 33.8 34.4 (H) 34.3 (H) MCHC 30.5 - 36.0 g/dL 33.3 33.7 33.5 RDW-CV 11.5 - 15.0 % 13.0 13.6 17.0 (H) Platelet Count 150 - 400 k/uL 139 (L) 133 (L) 158 MPV 9.0 - 12.7 fL 10.1 9.2 9.3 Neut% % 58.0 54.6 60.0 Abs Neut (ANC) 1.45 - 7.50 k/uL 2.07 1.92 2.89 Lymph% % 24.4 24.5 15.6 Abs Lymph 1.00 - 4.00 k/uL 0.87 (L) 0.86 (L) 0.75 (L) Cotton% % 10.6 10.3 11.8 Abs Cotton <0.87 k/uL 0.38 0.36 0.57 Eosin% % 6.7 10.0 11.6 Abs Eosin <0.46 k/uL 0.24 0.35 0.56 (H) Baso% % 0.3 0.3 0.6 Abs Baso <0.11 k/uL <0.03 <0.03 0.03 Immature Gran % % 0.0 0.3 0.4 IMMATURE GRANS (ABS) <0.10 k/uL <0.03 <0.03 <0.03 NRBC /100 WBC 0.0 0.0 0.0 Absolute nRBC <0.01 k/uL <0.01 <0.01 <0.01 DTYPE Auto Auto Auto CMP: Pending ASSESSMENT/PLAN: 1. Malignant neoplasm of lower-inner quadrant of right breast of female, estrogen receptor positive (HCC) - ICD9: 174.3, V86.0, ICD10: C50.311, Z17.0 (primary diagnosis) 2. Malignant neoplasm metastatic to lung, unspecified laterality (HCC) - ICD9: 197.0, ICD10: C78.00 3. Malignant neoplasm metastatic to bone (HCC) - ICD9: 198.5, ICD10: C79.51 4. HER2-positive carcinoma of breast (HCC) - ICD9: 174.9, ICD10: C50.919 5. Chemotherapy-induced cardiomyopathy (HCC) - ICD9: 425.9, E933.1, ICD10: I42.7, T45.1X5A 6. Chemotherapy-induced neuropathy (HCC) - ICD9: 357.6, E933.1, ICD10: G62.0, T45.1X5A Per Dr. Rivers's previous note: Assessment: -Originally pT2 pN0(sln) MX ER positive (9%, very weak) WV negative HER overexpressed stage IIA invasive ductal carcinoma the right breast. -Recurrent pT2(m) pN0 (none of 5 LNs) MX ER +(15%, weak intensity)/WV negative (0%) HER2 3+ invasive ductal carcinoma the right breast while on AI (anastrozole). Posterior margin positive--more than just focal according to pathologist. Pectoralis fascia rem she calixto. Staging workup revealed multiple lung metastases, not biopsy proven. -Tolerated Enhertu overall very well but recent progressive disease with right lung metastasis. PET scan demonstrated that to be only site of radiographically evident disease. -Receiving and tolerating radiation very well. -No symptoms of cardiomyopathy. Blood pressure remains well controlled. -She has been receiving Herceptin. Tolerating well. -Reviewed counts. -Recent echo showed slight decrease in myocardial strain--done prior to starting tucatinib. Plan: -Imodium prn. -Continue Herceptin. -Okay to start cycle capecitabine this Tuesday. -Continue tucatinib. -Continue metoprolol to 25 mg BID. -Continue Cozaar 100 mg daily. -Continue Lyrica 150 mg at HS. -Zometa every 3 months (originally started for hypercalcemia). -Repeat echo week of 12/13. -Continue follow-up with Dr. Galeano. -Previously stopped IBU for increase in serum Cr. -Continue potassium chloride 20 mEq daily. (G62.0, T45.1X5A) Chemotherapy-induced neuropathy (HCC) Assessment: -No subjective change. -Symptoms remain well controlled with Lyrica. Plan: -Continue Lyrica 150 mg twice daily. Thyroid nodules. Stable on US fall 2022 and re cent PET 08/2023. One year follow up recommended. - New central upper abd firm mass. - Reviewed CBC with pt. - CMP pending. - Continue current medications. - ECHO as scheduled next Tuesday. - Continue xeloda at current dose. - Follow up with Dr. Garay as scheduled. - CT chest/abd/pelvis soon. - Zometa every 3 months-last had 09/22/23. - Proceed as scheduled tomorrow for herceptin pending labs. - Follow up as scheduled. - Pt. aware to call office with any questions/concerns. The patient indicates understanding of these issues and agrees with the plan. All documentation from previous visit of 11/23/23-Dr. Rivers was copied and pasted, documentation has been reviewed and edited as necessary for today's visit. Caity Cote APRN.ALESSANDRO documented in this encounter [facility] 12-07-2023 History of Presen t illness Narrative [facility] Refill Assessment Medication(s): Capecitabine Patient's current medication list and adherence status to current therapy were reviewed by Specialty Pharmacy clinical pharmacist to identify any new drug interactions or non-compliance to therapy. Therapy continues to be appropriate for disease, patient response, and medical condition. Verification of therapeutic benefit and effectiveness with current therapy was completed. Adverse events, barriers in adherence, and side effects were assessed and addressed if applicable. Will proceed with refill with no changes in therapy - patient progressing towards achieving therapeutic goals based on medication-specific laboratory parameters, disease state markers and outcomes. 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 Patient confirmed: Yes Med/dose confirmed: Yes Supplies needed: No supplies needed Missed doses: No Estimated days supply on hand: (Has doses for today and tomorrow.) Next cycle/dose due: 12/16/23 Copay amount: 0 Delivery method: FedEx Signature required: Waived on patient request Delivery address: [address] [facility] [address] Delivery date: 12/13/23 (Has appointmetn the rest of the week, does not want sitting out.) Questions or concerns for the pharmacist?: No Did you have any side effects believed to be related to this medication, that resulted in hospitalization?: No Current Outpatient Medications on File Prior to Visit Medication Sig metoprolol tartrate, short acting, (LOPRESSOR) 25 mg tablet Take 1 tablet by mouth twice daily pregabalin (LYRICA) 150 mg capsule Take 1 capsule by mouth two times a day for 180 days. capecitabine (XELODA) 500 mg tablet Take 3 tablets (1500 mg) by mouth twice daily with food for 14 days then 7 days off. tucatinib (TUKYSA) 50 mg tablet Take 1 tablet (50 mg) by mouth two times a day with 1 other tucatinib prescription for 200 mg total. tucatinib (TUKYSA) 150 mg tablet Take 1 tablet (150 mg) by mouth two times a day with 1 other tucatinib prescription for 200 mg total. promethazine (PHENERGAN) 25 mg tablet Take 1 tablet by mouth every 6 hours as needed. FOR NAUSEA potassium chloride (KLOR-CON) 20 mEq packet Take 20 mEq by mouth once daily. (Patient not taking: Reported on 11/02/2023) loratadine (CLARITIN) 10 mg tablet Take 10 mg by mouth once daily. losartan (COZAAR) 50 mg tablet Take 2 tablets by mouth once daily. ascorbic acid/bioflavonoids (MARY C ORAL) Take 500 mg by mouth once daily. loperamide HCl (IMODIUM) 2 mg tab Take 2 mg by mouth as needed. multivitamin tablet Take 1 tablet by mouth once daily. diphenhydrAMINE (BENADRYL) 25 mg tablet Take 25 mg by mouth twice daily as needed. Current Facility-Administered Medications on File Prior to Visit Medication perflutren lipid microspheres 1.3 mL in NaCl (PF) 0.9% 10 mL injection (DEFINITY) sodium chloride 0.9 % (flush) 10 mL (BD POSIFLUSH) perflutren lipid microspheres 1.3 mL in NaCl (PF) 0.9% 10 mL injection (DEFINITY) sodium chloride 0.9 % (flush) 10 mL (BD POSIFLUSH) [facility] Visit Assessment - Hematology/Oncology: Assessment to use: Refill Vaccination Assessment: Date of influenza vaccination reminder: 10/13/2023 Date of most recent vaccination assessment: 10/13/2023 Treatment Plan Information: Treatment Plan Information: Diagnosis: metastatic recurrence of ER+. WV-, Her2+ breast cancer Previous treatment(s): - Right sided lumpectomy and right axillary sentinel lymph node dissection - AC followed by paclitaxel/Herceptin - Adjuvant radiation - Nerlynx - Taxotere/Herceptin/Perjeta - Kadcyla - SBRT - Enhertu - RT Tx Plan: Herceptin + Capecitabine + Tukysa Starting Dose/Titration: Capecitabine 1500 mg BID for 14 days on, followed by 7 days off - 750 mg/m2 x 1.88 m2 = 1410 mg -> 1500 mg (dose reduced d/t renal function) - Confirmed with Dr. Rivers Administration: Take with water within 30 minutes after a meal. Swallow tablets whole. Warnings: include but are not limited to bone marrow suppression, cardiotoxicity (more common in pt with hx of coronary artery disease), GI toxicity, lfjv-umx-usxm syndrome (onset ~79 days), hepatotoxicity (onset ~64 days - hyperbilirubinemia) Adverse reactions: include but are not limited to fatigue, rash, N/V/D/C (diarrhea: onset ~34 days, lasting ~ 5 days - risk dehydration), mucositis Emetogenicity: min to low (<30% frequency of emesis) - NCCN Monitoring: - CBC with differential, hepatic function, and renal function should be monitored. - Monitor INR closely if receiving concomitant warfarin. - Monitor for diarrhea, dehydration, hand-foot syndrome, Orantes-Kristofer syndrome, toxic epidermal necrolysis, stomatitis, and cardiotoxicity. - Monitor adherence. Drug-Drug Interactions: none Baseline: - CrCl 47 ml/min using adjusted body weight. 63 ml/min using actual Estimated Start Date Info: Per Dr. Rivers's discretion Estimated Treatment Duration: Until disease progression or unacceptable toxicity Shanna Davis documented in this encounter [facility] 11-23-2023 History of Presen t illness Narrative Oncologic problem(s): 1) Metastatic recurrence of ER positive, WV negative, HER2 positive breast cancer. 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 HPI: The patient is a 67 year old female who discovered a lump on the lower inner portion of her right breast in the fall of 2015. She was seen at [facility] and underwent a right sided core biopsy on 02/16/2016 by interventional radiology. The tissue specimen demonstrated invasive ductal carcinoma, Yohan grade 2. ER positive (90%, very weak) and WV negative (0%). HER-2 was quantified at 3+. [...] 3) Nerlyx-stopped d/t diarrhea. Last dose of neratinib . I'm never taking that again. Seen here in early March for complaint of right breast fullness and tenderness. Diagnostic mammogram done on 03/07/2019 did not demonstrate a mass within the breast however on ultrasound there was a 0.8 cm x 0.6 cm x 0.9 cm lobulated mass with an indistinct margin in the right breast at 1:00 anterior depth 6 cm in the nipple. It was lobulated and hypoechoic with internal echoes. This corresponded to the tender area. There was also a 1.2 x 0.9 x 2 cm lobulated mass with a circumscribed margin in the right breast at 2:00 anterior depth 7 cm from the nipple. It also was hypoechoic with internal echoes. And it also was tender on exam. Patient next underwent ultrasound-guided right breast needle core biopsy 2 on 03/22/2019. Pathology: MICROSCOPIC DIAGNOSIS A. Right breast at 1 o clock, core biopsy: Invasive ductal carcinoma with the following characteristics: Maximal length - 10 mm Nuclear grade - 3/3 Other findings - ductal carcinoma in situ, nuclear 3/3 with focal comedo necrosis. B. Right breast at 2 o clock, core biopsy: Invasive ductal carcinoma with the following characteristics: Maximal length - 1.2 mm Nuclear grade - 2-3/3 ANTIBODY / CLONE RESULT Block A P53 (DO-7) positive, >90% Ki-67 (30-9) positive, 12% CK8 ([id number]) positive CK5-6 (D5 & 1684) negative Calponin-1 (UX366Q) negative P40 (BC28) negative E-Cad (ECH-6) positive MORPHOMETRIC ANALYSIS ER (clone 6F11) 15%, weak intensity WV (clone 16/1E2) 0% Her-2Neu (clone CB11) 3+ Block B Calponin-1 ([id number]) negative P40 (BC28) negative CK8 ([id number]) positive INTERPRETATION: A. Right breast 1 o clock, biopsy: Invasive ductal carcinoma, grade 3/3. Positive for estrogen receptors (favorable prognostic indicator). Negative for progesterone receptors (unfavorable prognostic indicator). Positive for overexpression of XFN4cew. B. Right breast 2 o clock, biopsy: Invasive ductal carcinoma, grade 2-3/3. Then underwent right breast modified mastectomy along with axillary lymph node dissection on 04/02/2019. Pathology: MICROSCOPIC DIAGNOSIS Right breast, modified radical mastectomy: Invasive ductal carcinoma x2. Ductal carcinoma in situ. Five out of five lymph nodes, negative for metastatic carcinoma. Hyalinized fibroadenomas x2. See cancer summary below. SJ:breann 04/05/19 INVASIVE BREAST CANCER SUMMARY: Specimen - total breast (including nipple and skin). Procedure - total mastectomy (including nipple and skin). Lymph node sampling - axillary dissection Specimen integrity - single, intact specimen Specimen laterality - right Tumor site - inner quadrant Tumor size: size of largest invasive carcinoma - 3.5 x 1.5 x 1.5 cm Tumor focality - two foci of invasive carcinoma Size of individual foci - 3.5 x 1.5 x 1.5 cm and 2 x 2 x 1 cm Macroscopic and Microscopic extent of tumor: Skin - invasive carcinoma does not invade into the dermis or epidermis. Nipple - DCIS does not involve nipple epidermis. Skeletal muscle - Skeletal muscle is present and is free of carcinoma. Ductal carcinoma in situ (DCIS) - present Extensive intraductal component (EIC) - negative Estimated size (extent) of DCIS - DCIS is present in the area of invasive carcinoma and comprise about 5% of the total tumor volume. Number of blocks with DCIS - 7 Number of blocks examined (breast tissue) - 16 Architectural patterns - cribriform and comedo Nuclear grade - grade 3 (high) Necrosis - present, central (expansive comedo necrosis) Lobular carcinoma in situ (LCIS) - not identified Histologic type of invasive carcinoma - invasive ductal carcinoma (no special type) Histologic Grade (Sorento grade): Glandular/tubular differentiation - score 3 Nuclear pleomorphism - score 3 Mitotic count - score 2 Overall grade - 3 (score of 8) Both tumor show similar morphologic features. Margins - larger focus of invasive carcinoma is present at the closest posterior margin of the specimen. - smaller focus of invasive carcinoma is 1.7 cm away from closest superior margin. - Margins are free of ductal carcinoma in situ. Treatment effect: Response to presurgical (neoadjuvant) therapy - no known presurgical therapy. Lymph-Vascular invasion - not identified Dermal lymph-vascular invasion - not identified Lymph nodes: Number of sentinel lymph nodes examined - 0 Total number of lymph nodes examined (sentinel and nonsentinel) - 5 Number of lymph nodes with macrometastases, micrometastases and isolated tumor cells - 0 Distant metastasis - not applicable Additional pathologic findings - hyalinized fibroadenomas x2 with focal calcifications. See comment. - Dense fibrosis and lobular involution. Ancillary studies - previously performed on section of tumor ([id number] / [id number]). ER - positive (15%, weak intensity) WV - negative (0%) Her2 krista - positive (3+) Microcalcifications - present in both invasive carcinoma and non-neoplastic tissue. Clinical history - Please make reference to previous specimen ([id number]) right breast at 1 o clock and right breast at 2 o clock core biopsies with diagnosis of invasive ductal carcinoma. PATHOLOGIC STAGE: pT2(m) pN0 Mx Evidently the larger focus of cancer was down to the chest wall muscle. Other significant past medical history was asymptomatic decline in ejection fraction 1 receiving Herceptin. Serial echocardiograms--March 2016 at that time he demonstrated ejection fraction of 72%. Another echocardiogram in September 2016 demonstrated ejection fraction of 55%. In November 2016 was 50% and in May 2017 was 45% with mild global hypokinesis. managed with beta-ruth and ARB. Most recent echocardiogram from May 2018 revealed normal left ventricular size with systolic function at lower limits of normal estimated at 53%. The global longitudinal strain was -19.4% (normal) cis. Stage I diastolic dysfunction was observed. Pulmonary artery pressure was 27 mmHg. ---- Had staging CTs scans that suggested lung metastases. Not able to biopsy. Previous therapy: 1) Taxotere/Herceptin/Perjeta. 2) Herceptin/Perjeta. Discontinued 01/2021 for progressive disease. 3) Kadcyla. 02/2021 through 07/2021. Discontinued secondary to significant worsening of neuropathy. 4) SBRT DYLAN metastasis completed 03/02/2023. 5) Enhertu. 6) RT right lung 09/30/2023. Current therapy: 1) Capecitabine, tukatinib and trastuzumab. Interim history: Feels well. Occasional diarrhea--easily controlled with Imodium. A little more tired. No cough. Dyspnea with exertion stable. No chest pain. Claritin daily. No LE swelling. Subcutaneous metastasis on the anterior lower chest wall remains no longer palpable to her. 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 Symptoms remain well controlled and stable. PMH, medications and allergies personally reviewed by me today. Any changes documented in appropriate section. ROS: Constitutional: Denies episodes of fever and night sweats. Not significantly fatigued. Normal appetite. Neuro: Denies [place], vertigo, dizziness and imbalance. HEENT: No recent change in voice, vision or hearing. Resp: See above. CVS: See above. GI: Denies dysgeusia. Denies symptoms of stomatitis. Denies dysphagia and odynophagia. Denies abdominal pain. : Denies dysuria or gross hematuria. No symptoms of bladder outlet obstruction. Endo: Denies hot flashes. Denies polyuria and polydipsia. Denies heat and cold intolerance. Musculoskeletal: Denies bone, back, joint and muscular pain. Derm: Denies rash. Denies jaundice and diffuse pruritis. Heme: Denies unusual bleeding and unexplained bruising. Psych: Normal mood. PHYSICAL EXAM: Vitals: Blood pressure 117/63, pulse 60, temperature 36.9 C (98.5 F), temperature source Temporal, weight 83 kg (183 lb), SpO2 96%. Well-appearing and in no acute distress. EYES: Sclerae are anicteric bilaterally. LYMPHATIC: There is no palpable cervical, supraclavicular adenopathy. RESPIRATORY: Normal vesicular breath sounds in all barnes. No rales, wheezes or rhonchi. CARDIOVASCULAR: Rhythm is regular. BREAST: Not examined today. ABDOMEN: The abdomen is nondistended. Extremities: No swelling or edema. SKIN: Continued resolution of subcutaneous metastasis near xyphoid. LABS: Latest Ref Rng 11/23/2023 WBC 3.70 - 11.00 k/uL 3.51 (L) RBC 3.90 - 5.20 m/uL 3.55 (L) Hemoglobin 11.5 - 15.5 g/dL 12.2 Hematocrit 36.0 - 46.0 % 36.2 MCV 80.0 - 100.0 fL 102.0 (H) MCH 26.0 - 34.0 pg 34.4 (H) MCHC 30.5 - 36.0 g/dL 33.7 RDW-CV 11.5 - 15.0 % 13.6 Platelet Count 150 - 400 k/uL 133 (L) MPV 9.0 - 12.7 fL 9.2 Neut% % 54.6 Abs Neut (ANC) 1.45 - 7.50 k/uL 1.92 Lymph% % 24.5 Abs Lymph 1.00 - 4.00 k/uL 0.86 (L) Cotton% % 10.3 Abs Cotton <0.87 k/uL 0.36 Eosin% % 10.0 Abs Eosin <0.46 k/uL 0.35 Baso% % 0.3 Abs Baso <0.11 k/uL <0.03 Immature Gran % % 0.3 IMMATURE GRANS (ABS) <0.10 k/uL <0.03 NRBC /100 WBC 0.0 Absolute nRBC <0.01 k/uL <0.01 DTYPE Auto ASSESSMENT/PLAN: (C50.311, Z17.0) Malignant neoplasm of lower-inner quadrant of right breast of female, estrogen receptor positive (HCC) (primary encounter diagnosis) (C79.51) Bone metastases (HCC) (C78.01, C78.02) Malignant neoplasm metastatic to both lungs (HCC) (I42.7, T45.1X5A) Chemotherapy-induced cardiomyopathy (HCC) Assessment: -Originally pT2 pN0(sln) MX ER positive (9%, very weak) WV negative HER overexpressed stage IIA invasive ductal carcinoma the right breast. -Recurrent pT2(m) pN0 (none of 5 LNs) MX ER +(15%, weak intensity)/WV negative (0%) HER2 3+ invasive ductal carcinoma the right breast while on AI (anastrozole). Posterior margin positive--more than just focal according to pathologist. Pectoralis fascia rem she calixto. Staging workup revealed multiple lung metastases, not biopsy proven. -Tolerated Enhertu overall very well but recent progressive disease with right lung metastasis. PET scan demonstrated that to be only site of radiographically evident disease. -Receiving and tolerating radiation very well. -No symptoms of cardiomyopathy. Blood pressure remains well controlled. -She has been receiving Herceptin. Tolerating well. -Reviewed counts. -Recent echo showed slight decrease in myocardial strain--done prior to starting tucatinib. Plan: -Imodium prn. -Continue Herceptin. -Okay to start cycle capecitabine this Tuesday. -Continue tucatinib. -Continue metoprolol to 25 mg BID. -Continue Cozaar 100 mg daily. -Continue Lyrica 150 mg at HS. -Zometa every 3 months (originally started for hypercalcemia). -Repeat echo week of 12/13. -Continue follow-up with Dr. Galeano. -Previously stopped IBU for increase in serum Cr. -Continue potassium chloride 20 mEq daily. (G62.0, T45.1X5A) Chemotherapy-induced neuropathy (HCC) Assessment: -No subjective change. -Symptoms remain well controlled with Lyrica. Plan: -Continue Lyrica 150 mg twice daily. Thyroid nodules. Stable on US fall 2022 and re cent PET 08/2023. One year follow up recommended. Portions of this documentation were copied and pasted from previous office visit notes in order to provide a cohesive continuity of the history. The note has been reviewed and edited and updated as necessary. I spent a total of 20 minutes on the date of the service which included preparing to see the patient, [id number] patient care, completing clinical documentation, obtaining and/or reviewing separately obtained history, performing a medically appropriate examination, counseling and educating the patient/family/caregiver, ordering medications, tests, or procedures, communicating with other HCPs (not separately reported), and communicating results to the patient/family/caregiver. Rip Rivers DO documented in this encounter [facility] 11-15-2023 Telephone encounter Note Patient called to clarify if she should continue taking tukysa daily. Reviewed prescription instructions and informed patient tukysa is daily, capecitabine is 2 weeks on and 1 week off. Patient stated understanding of discussed information. Carla Almonte RN [facility] 11-15-2023 Miscellaneous Notes Patient called to clarify if she should continue taking tukysa daily. Reviewed prescription instructions and informed patient tukysa is daily, capecitabine is 2 weeks on and 1 week off. Patient stated understanding of discussed information. Carla Almonte RN Patient called with questions regarding how to take Tukysa. Please advise. documented in this encounter [facility] 11-15-2023 Telephone encounter Note Patient called with questions regarding how to take Tukysa. Please advise. [facility] Work Phone: 11-11-2023 Telephone encounter Note ORAL ANTI-CANCER AGENTS FOLLOW-UP PHONE CALL/VISIT Patient identified by name and date of . YES Patient is on cycle 1, week 2, day 8 of Capecitabine (Xeloda) and tucatinib for Breast Cancer. SYMPTOM ASSESSMENT Headache: No Visual Changes: for the better. Patient stated she is able to wear her old glasses now and her eyesight is improving. Dizziness: No Do you have any periods of confusion? No Mood changes: No Mouth or throat pain: No Appetite: no changes in appetite, appetite good Taste changes: No Nausea: No Vomiting: No Heartburn: No. Weight gain/loss: No Episodes of palpitations/chest discomfort/pressure/pain No Shortness of breath: No Cough: No Diarrhea: no Constipation: no Bladder/Urinary Changes: None Pain: No=0 (pain 0 on a scale of 0-10). Fever: No Chills: No Cold sensitivity: No Numbness/weakness: No Edema: No Skin changes: No Itching: No Yellowing of skin or eyes: No Musculoskeletal/joint changes/issues No Bleeding issues: No Activity Level: unchanged- fair Do you need to take naps? No Does the patient need interventions or same day appointment:No ADDITIONAL FOLLOW UP: The next outreach call is due on: TBD and was scheduled No, appointment made The following lab tests are due: 11/22, CBC/CMP Verified patient is aware of next appointment in the cancer center: No. Verified patient verbalized how to correctly refill the oral agent prescription. No Does the patient have any financial difficulties affording this medication? No Patient verbalizes understanding of when to seek Medical Attention? YES Patient verbalizes understanding of after-hours and weekend phone number? YES Patient verbalized importance of medication compliance in taking the oral agent as prescribed. Patient instructed to call if unable to comply. Carla Almonte RN [facility] 11-11-2023 Miscellaneous Notes ORAL ANTI-CANCER AGENTS FOLLOW-UP PHONE CALL/VISIT Patient identified by name and date of . YES Patient is on cycle 1, week 2, day 8 of Capecitabine (Xeloda) and tucatinib for Breast Cancer. SYMPTOM ASSESSMENT Headache: No Visual Changes: for the better. Patient stated she is able to wear her old glasses now and her eyesight is improving. Dizziness: No Do you have any periods of confusion? No Mood changes: No Mouth or throat pain: No Appetite: no changes in appetite, appetite good Taste changes: No Nausea: No Vomiting: No Heartburn: No. Weight gain/loss: No Episodes of palpitations/chest discomfort/pressure/pain No Shortness of breath: No Cough: No Diarrhea: no Constipation: no Bladder/Urinary Changes: None Pain: No=0 (pain 0 on a scale of 0-10). Fever: No Chills: No Cold sensitivity: No Numbness/weakness: No Edema: No Skin changes: No Itching: No Yellowing of skin or eyes: No Musculoskeletal/joint changes/issues No Bleeding issues: No Activity Level: unchanged- fair Do you need to take naps? No Does the patient need interventions or same day appointment:No ADDITIONAL FOLLOW UP: The next outreach call is due on: TBD and was scheduled No, appointment made The following lab tests are due: 11/22, CBC/CMP Verified patient is aware of next appointment in the cancer center: No. Verified patient verbalized how to correctly refill the oral agent prescription. No Does the patient have any financial difficulties affording this medication? No Patient verbalizes understanding of when to seek Medical Attention? YES Patient verbalizes understanding of after-hours and weekend phone number? YES Patient verbalized importance of medication compliance in taking the oral agent as prescribed. Patient instructed to call if unable to comply. Carla Almonte RN ORAL ANTI-CANCER AGENTS FOLLOW-UP PHONE CALL/VISIT Patient identified by name and date of . NO Patient is on cycle 1, week 2, day 8 of Capecitabine (Xeloda) and tucatinib for Breast Cancer. Called patient, no answer, left a VM requesting a call back from patient. Carla Almonte RN documented in this encounter [facility] 11-11-2023 Telephone encounter Note ORAL ANTI-CANCER AGENTS FOLLOW-UP PHONE CALL/VISIT Patient identified by name and date of . NO Patient is on cycle 1, week 2, day 8 of Capecitabine (Xeloda) and tucatinib for Breast Cancer. Called patient, no answer, left a VM requesting a call back from patient. Carla Almonte RN [facility] 11-09-2023 Telephone encounter Note This was sent to [facility] in [place] 11/01/2023: E-Prescribing Status: Receipt confirmed by pharmacy (11/01/2023 9:54 AM EDT) Jazlyn Harding LPN [facility] 11-09-2023 Miscellaneous Notes This was sent to [facility] in [place] 11/01/2023: E-Prescribing Status: Receipt confirmed by pharmacy (11/01/2023 9:54 AM EDT) Jazlyn Harding LPN documented in this encounter [facility] 11-03-2023 History of Presen t illness Narrative Assessment unchanged from 11/02/23 office visit with Mary Cote CNP documented in this encounter [facility] 11-02-2023 History of Presen t illness Narrative Chief Complaint Patient presents with: Established Patient HPI: Renate Christiansen is a 68 year old female who presents here today for evaluation for treatment tomorrow. Per Dr. Rivers's previous note: H/o discovered a lump on the lower inner portion of her right breast in the fall. She was seen at [facility] and underwent a right sided core biopsy on 02/16/2016 by interventional radiology. The tissue specimen demonstrated invasive ductal carcinoma, Yohan grade 2. ER positive (90%, very weak) and WV negative (0%). HER-2 was quantified at 3+. [...] 3) Nerlyx-stopped d/t diarrhea. Last dose of neratinib . I'm never taking that again. Seen here in early March for complaint of right breast fullness and tenderness. Diagnostic mammogram done on 03/07/2019 did not demonstrate a mass within the breast however on ultrasound there was a 0.8 cm x 0.6 cm x 0.9 cm lobulated mass with an indistinct margin in the right breast at 1:00 anterior depth 6 cm in the nipple. It was lobulated and hypoechoic with internal echoes. This corresponded to the tender area. There was also a 1.2 x 0.9 x 2 cm lobulated mass with a circumscribed margin in the right breast at 2:00 anterior depth 7 cm from the nipple. It also was hypoechoic with internal echoes. And it also was tender on exam. Patient next underwent ultrasound-guided right breast needle core biopsy 2 on 03/22/2019. Pathology: MICROSCOPIC DIAGNOSIS A. Right breast at 1 o clock, core biopsy: Invasive ductal carcinoma with the following characteristics: Maximal length - 10 mm Nuclear grade - 3/3 Other findings - ductal carcinoma in situ, nuclear 3/3 with focal comedo necrosis. B. Right breast at 2 o clock, core biopsy: Invasive ductal carcinoma with the following characteristics: Maximal length - 1.2 mm Nuclear grade - 2-3/3 ANTIBODY / CLONE RESULT Block A P53 (DO-7) positive, >90% Ki-67 (30-9) positive, 12% CK8 ([id number]) positive CK5-6 (D5 & 1684) negative Calponin-1 (QD061P) negative P40 (BC28) negative E-Cad (ECH-6) positive MORPHOMETRIC ANALYSIS ER (clone 6F11) 15%, weak intensity WV (clone 16/1E2) 0% Her-2Neu (clone CB11) 3+ Block B Calponin-1 (LO343A) negative P40 (BC28) negative CK8 ([id number]) positive INTERPRETATION: A. Right breast 1 o clock, biopsy: Invasive ductal carcinoma, grade 3/3. Positive for estrogen receptors (favorable prognostic indicator). Negative for progesterone receptors (unfavorable prognostic indicator). Positive for overexpression of UCL0wvz. B. Right breast 2 o clock, biopsy: Invasive ductal carcinoma, grade 2-3/3. Then underwent right breast modified mastectomy along with axillary lymph node dissection on 04/02/2019. Pathology: MICROSCOPIC DIAGNOSIS Right breast, modified radical mastectomy: Invasive ductal carcinoma x2. Ductal carcinoma in situ. Five out of five lymph nodes, negative for metastatic carcinoma. Hyalinized fibroadenomas x2. See cancer summary below. SJ:breann 04/05/19 INVASIVE BREAST CANCER SUMMARY: Specimen - total breast (including nipple and skin). Procedure - total mastectomy (including nipple and skin). Lymph node sampling - axillary dissection Specimen integrity - single, intact specimen Specimen laterality - right Tumor site - inner quadrant Tumor size: size of largest invasive carcinoma - 3.5 x 1.5 x 1.5 cm Tumor focality - two foci of invasive carcinoma Size of individual foci - 3.5 x 1.5 x 1.5 cm and 2 x 2 x 1 cm Macroscopic and Microscopic extent of tumor: Skin - invasive carcinoma does not invade into the dermis or epidermis. Nipple - DCIS does not involve nipple epidermis. Skeletal muscle - Skeletal muscle is present and is free of carcinoma. Ductal carcinoma in situ (DCIS) - present Extensive intraductal component (EIC) - negative Estimated size (extent) of DCIS - DCIS is present in the area of invasive carcinoma and comprise about 5% of the total tumor volume. Number of blocks with DCIS - 7 Number of blocks examined (breast tissue) - 16 Architectural patterns - cribriform and comedo Nuclear grade - grade 3 (high) Necrosis - present, central (expansive comedo necrosis) Lobular carcinoma in situ (LCIS) - not identified Histologic type of invasive carcinoma - invasive ductal carcinoma (no special type) Histologic Grade (Yohan grade): Glandular/tubular differentiation - score 3 Nuclear pleomorphism - score 3 Mitotic count - score 2 Overall grade - 3 (score of 8) Both tumor show similar morphologic features. Margins - larger focus of invasive carcinoma is present at the closest posterior margin of the specimen. - smaller focus of invasive carcinoma is 1.7 cm away from closest superior margin. - Margins are free of ductal carcinoma in situ. Treatment effect: Response to presurgical (neoadjuvant) therapy - no known presurgical therapy. Lymph-Vascular invasion - not identified Dermal lymph-vascular invasion - not identified Lymph nodes: Number of sentinel lymph nodes examined - 0 Total number of lymph nodes examined (sentinel and nonsentinel) - 5 Number of lymph nodes with macrometastases, micrometastases and isolated tumor cells - 0 Distant metastasis - not applicable Additional pathologic findings - hyalinized fibroadenomas x2 with focal calcifications. See comment. - Dense fibrosis and lobular involution. Ancillary studies - previously performed on section of tumor ([id number] / [id number]). ER - positive (15%, weak intensity) WV - negative (0%) Her2 krista - positive (3+) Microcalcifications - present in both invasive carcinoma and non-neoplastic tissue. Clinical history - Please make reference to previous specimen ([id number]) right breast at 1 o clock and right breast at 2 o clock core biopsies with diagnosis of invasive ductal carcinoma. PATHOLOGIC STAGE: pT2(m) pN0 Mx Evidently the larger focus of cancer was down to the chest wall muscle. Other significant past medical history was asymptomatic decline in ejection fraction 1 receiving Herceptin. Serial echocardiograms--March 2016 at that time he demonstrated ejection fraction of 72%. Another echocardiogram in September 2016 demonstrated ejection fraction of 55%. In November 2016 was 50% and in May 2017 was 45% with mild global hypokinesis. managed with beta-ruth and ARB. Most recent echocardiogram from May 2018 revealed normal left ventricular size with systolic function at lower limits of normal estimated at 53%. The global longitudinal strain was -19.4% (normal) cis. Stage I diastolic dysfunction was observed. Pulmonary artery pressure was 27 mmHg. ---- Had staging CTs scans that suggested lung metastases. Not able to biopsy. Previous therapy: 1) Taxotere/Herceptin/Perjeta. 2) Herceptin/Perjeta. Discontinued 01/2021 for progressive disease. 3) Kadcyla. 02/2021 through 07/2021. Discontinued secondary to significant worsening of neuropathy. 4) SBRT DYLAN metastasis completed 03/02/2023. 5) Enhertu. Completed RT 09/30/2023. No new concerns today. Pt. here today with spouse. Appetite:It's good. But I'm doing small portions. Energy level:Eh. Denies fevers. Mouth:denies sores Resp:denies cough or sob Cardiac:denies chest pain/palpitations GI:denies abd pain, n/v, moving bowels regularly :denies dysuria/hematuria Extrem:denies pain Endo:denies hto flashes Neuro:+neuropathy -stable Skin:denies rashes Heme:denies bleeding The ROS is otherwise negative. Past medical history, appointments, medications, allergies reviewed. No changes. EXAM: BP 113/72 Pulse 63 Temp 37.4 C (99.3 F) (Temporal) Wt 82.5 kg (181 lb 12.8 oz) SpO2 96% BMI 34.35 kg/m APPEARANCE Well appearing, alert, in no acute distress, well-hydrated, well nourished. HEART RRR with normal S1 and S2, no murmurs LUNG clear to auscultation LYMPH NODES No cervical lymphadenopathy, No supraclavicular lymphadenopathy, and No axillary lymphadenopathy. ABDOMEN bowel sounds normoactive, soft, non-tender EXTREMITIES No edema NEURO Awake, alert and oriented x 3, using a cane, and No involuntary motions. SKIN Skin color, texture, turgor normal, no suspicious rashes or lesions LABS: Latest Ref Rng 09/21/2023 10/11/2023 11/02/2023 WBC 3.70 - 11.00 k/uL 4.48 2.85 (L) 3.41 (L) RBC 3.90 - 5.20 m/uL 3.92 3.85 (L) 4.06 Hemoglobin 11.5 - 15.5 g/dL 13.7 13.1 13.7 Hematocrit 36.0 - 46.0 % 40.8 39.7 41.6 MCV 80.0 - 100.0 fL 104.1 (H) 103.1 (H) 102.5 (H) MCH 26.0 - 34.0 pg 34.9 (H) 34.0 33.7 MCHC 30.5 - 36.0 g/dL 33.6 33.0 32.9 RDW-CV 11.5 - 15.0 % 14.5 13.5 13.2 Platelet Count 150 - 400 k/uL 156 79 (L) 106 (L) MPV 9.0 - 12.7 fL 9.8 10.2 10.4 Neut% % 53.8 65.2 60.1 Abs Neut (ANC) 1.45 - 7.50 k/uL 2.41 1.86 2.05 Lymph% % 25.7 15.8 22.0 Abs Lymph 1.00 - 4.00 k/uL 1.15 0.45 (L) 0.75 (L) Cotton% % 11.6 13.3 11.4 Abs Cotton <0.87 k/uL 0.52 0.38 0.39 Eosin% % 7.8 4.9 5.9 Abs Eosin <0.46 k/uL 0.35 0.14 0.20 Baso% % 0.9 0.4 0.6 Abs Baso <0.11 k/uL 0.04 <0.03 <0.03 Immature Gran % % 0.2 0.4 0.0 IMMATURE GRANS (ABS) <0.10 k/uL <0.03 <0.03 <0.03 NRBC /100 WBC 0.0 0.0 0.0 Absolute nRBC <0.01 k/uL <0.01 <0.01 <0.01 DTYPE Auto Auto Auto Latest Ref Rng 09/21/2023 10/11/2023 11/02/2023 Protein, Total 6.3 - 8.0 g/dL 6.1 (L) 5.7 (L) 5.9 (L) Albumin 3.9 - 4.9 g/dL 3.9 3.5 (L) 3.7 (L) Calcium 8.5 - 10.2 mg/dL 10.5 (H) 9.8 9.4 Bilirubin, Total 0.2 - 1.3 mg/dL 0.6 0.5 0.5 Alkaline Phosphatase 34 - 123 U/L 169 (H) 167 (H) 179 (H) AST 13 - 35 U/L 34 42 (H) 40 (H) ALT 7 - 38 U/L 18 25 23 Glucose 74 - 99 mg/dL 112 (H) 130 (H) 130 (H) BUN 7 - 21 mg/dL 11 13 15 Creatinine 0.58 - 0.96 mg/dL 0.96 1.08 (H) 0.92 Sodium 136 - 144 mmol/L 139 139 142 Potassium 3.7 - 5.1 mmol/L 3.9 3.6 (L) 3.5 (L) Chloride 97 - 105 mmol/L 103 104 108 (H) CO2 22 - 30 mmol/L 31 (H) 31 (H) 27 Anion Gap 9 - 18 mmol/L 5 (L) 4 (L) 7 (L) eGFR >=60 mL/min/1.73m 64 55 (L) 67 ASSESSMENT/PLAN: 1. Malignant neoplasm of lower-inner quadrant of right breast of female, estrogen receptor positive (HCC) - ICD9: 174.3, V86.0, ICD10: C50.311, Z17.0 (primary diagnosis) 2. Malignant neoplasm metastatic to bone (HCC) - ICD9: 198.5, ICD10: C79.51 3. Chemotherapy-induced cardiomyopathy (HCC) - ICD9: 425.9, E933.1, ICD10: I42.7, T45.1X5A 4. HER2-positive carcinoma of breast (HCC) - ICD9: 174.9, ICD10: C50.919 -Originally pT2 pN0(sln) MX ER positive (9%, very weak) WV negative HER overexpressed stage IIA invasive ductal carcinoma the right breast. -Recurrent pT2(m) pN0 (none of 5 LNs) MX ER +(15%, weak intensity)/WV negative (0%) HER2 3+ invasive ductal carcinoma the right breast while on AI (anastrozole). Posterior margin positive--more than just focal according to pathologist. Pectoralis fascia rem she calixto. Staging workup revealed multiple lung metastases, not biopsy proven. -Tolerated Enhertu overall very well but recent progressive disease with right lung metastasis. PET scan demonstrated that to be only site of radiographically evident disease. - Overall tolerating herceptin well. - Completed radiation 09/30/2023. - Reviewed CBC/CMP with pt. - Restart Klor-con. - Advised pt. to start xeloda and tucatinib on Tuesday. - Proceed as scheduled for herceptin tomorrow. - CBC TuesdayNovember 10 @ 7:45a.m. d/t another appt. that morning. - Follow up with Dr. Rivers as scheduled otherwise. - Pt. aware to call office with any questions/concerns. The patient indicates understanding of these issues and agrees with the plan. All documentation from previous visit of 10/11/23-Dr. Rivers was copied and pasted, documentation has been reviewed and edited as necessary for today's visit. Caity Cote APRN.TERRITORY DEVELOPMENT MANAGER documented in this encounter [facility] 11-02-2023 History of Presen t illness Narrative Patient is here for IVAD port flush/blood draw per [facility] [place] protocol. IVAD is located in right upper chest. Site cleansed with Chloraprep IVAD accessed with a #20 gauge 3/4 non-coring Gripper needle Flush with 5cc's Normal Saline. Blood Return: Good. 10 cc's blood aspirated and discarded. Blood drawn for CBC and CMP. Flushed with: 20 ml Normal Saline. Non-coring needle removed. Paper tape applied to puncture site. Site negative for redness, edema or tenderness. Patient tolerated procedure well. documented in this encounter [facility] 10-28-2023 History of Presen t illness Narrative AMBULATORY TELEPHONE VISIT Renate Christiansen has consented to this telephone encounter. Persons Present: patient Chief Complaint/Reason: Four week follow-up after radiation treatment. HPI: Metastatic breast cancer with solitary progression of lung metastasis s/p SBRT finished on 09/30/23. She is doing well without any specific new complaints. She denies any chest pain or any skin changes. She denies any changes in her breathing. Data Reviewed: None. Assessment: She tolerated SBRT well without any significant acute complications. Plan: She is on Herceptin and will start capecitabine and Tucatinib. I will get CT chest in two months. Total Time Spent: 5 minutes Meenu Garay MD documented in this encounter [facility] 10-14-2023 Telephone encounter Note Patient notified and verbalized understanding. Jzalyn Harding LPN [facility] 10-14-2023 Miscellaneous Notes Patient notified and verbalized understanding. Jazlyn Harding LPN Yes, hold on starting until she is evaluated at next OV. [place] Care Coordination FOLLOW-UP NOTE Patient identified by name and date of . YES Spoke to patient Summary: (Reason for follow-up) Received Xeloda and Tukysa today. Patient stated she is supposed to start around 11/02 or 11/03? Please confirm. Thank you. Care Coordination Plan: Will follow up after speaking to Dr. Silvestre Almonte, RN October 14, 2023 Patient received it this morning. Left patient a message to contact this nurse. Did patient receive Tukysa or when will she receive Tukysa? Jazlyn Harding LPN documented in this encounter [facility] 10-14-2023 Telephone encounter Note Yes, hold on starting until she is evaluated at next OV. [facility] 10-14-2023 Telephone encounter Note ORAL ANTI-CANCER AGENTS EDUCATION patient called today for oral medication education of xeloda and tukysa for Breast Cancer READINESS TO LEARN Cognitive Ability: Alert and oriented Motivation to Learn: Interested Family Support: High - Very involved in pt care Instruction Provided to: Patient Patient learns best by: Multiple Methods Factors affecting learning: None Physical limitation affecting learning: None SAUCEDO ASSESSMENT: 1.) Verified that patient knows that the oral agents are for cancer and are taken by mouth. Yes 2.) Medication review completed during visit. Yes 3.) Patient is able to swallow pills. Yes 4.) Patient is able to read the drug label/information. Yes 5.) Patient is able to open the medication bottles and packages. Yes 6.) Has patient taken other pills for cancer? YES, please explain: Neratinib- stopped d/t diarrhea 7.) Is patient experiencing any symptoms that would affect their ability to keep down pills, for example nausea or vomiting? No 8.) Verified that patient understands prescription delivery, benefit investigation and refill process. Yes DRUG-SPECIFIC EDUCATION: 1.) Verified patient knows the drug name. Yes 2.) Verified patient understands the dose and schedule of oral anti cancer agent. Yes- patient verbalized understanding by teach-back method and understands that her medications are BID. 3.) Verified patient knows what to do if a medication dose is missed. Yes 4.) Verified patient understands where to store the drug. Yes 5.) Verified patient understands potential side effects and how to manage them. Yes 6.)Verified patient understands handling precautions of oral anti cancer agent. Yes 7.) Verified patient was given written instructions and understands when and whom to call with questions. Yes 8.) Verified patient understands where and how to return drug. Yes 9.) Verified patient received drug specific adult education handout and neutropenic wallet card Yes EVALUATE: The patient demonstrated an understanding of all the above education using the teach-back method. Yes Instructed to call us with any questions, concerns, and/or unresolved symptoms. Will continue to follow up and provide reinforcement of teaching topics as needed. Carla Almonte RN T [facility] 10-14-2023 Miscellaneous Notes ORAL ANTI-CANCER AGENTS EDUCATION patient called today for oral medication education of xeloda and tukysa for Breast Cancer READINESS TO LEARN Cognitive Ability: Alert and oriented Motivation to Learn: Interested Family Support: High - Very involved in pt care Instruction Provided to: Patient Patient learns best by: Multiple Methods Factors affecting learning: None Physical limitation affecting learning: None SAUCEDO ASSESSMENT: 1.) Verified that patient knows that the oral agents are for cancer and are taken by mouth. Yes 2.) Medication review completed during visit. Yes 3.) Patient is able to swallow pills. Yes 4.) Patient is able to read the drug label/information. Yes 5.) Patient is able to open the medication bottles and packages. Yes 6.) Has patient taken other pills for cancer? YES, please explain: Neratinib- stopped d/t diarrhea 7.) Is patient experiencing any symptoms that would affect their ability to keep down pills, for example nausea or vomiting? No 8.) Verified that patient understands prescription delivery, benefit investigation and refill process. Yes DRUG-SPECIFIC EDUCATION: 1.) Verified patient knows the drug name. Yes 2.) Verified patient understands the dose and schedule of oral anti cancer agent. Yes- patient verbalized understanding by teach-back method and understands that her medications are BID. 3.) Verified patient knows what to do if a medication dose is missed. Yes 4.) Verified patient understands where to store the drug. Yes 5.) Verified patient understands potential side effects and how to manage them. Yes 6.)Verified patient understands handling precautions of oral anti cancer agent. Yes 7.) Verified patient was given written instructions and understands when and whom to call with questions. Yes 8.) Verified patient understands where and how to return drug. Yes 9.) Verified patient received drug specific adult education handout and neutropenic wallet card Yes EVALUATE: The patient demonstrated an understanding of all the above education using the teach-back method. Yes Instructed to call us with any questions, concerns, and/or unresolved symptoms. Will continue to follow up and provide reinforcement of teaching topics as needed. aCrla Almonte RN Patient had called back and stated she did not receive packet of information. Information was left for patient at check in desk on Tuesday and patient picked up at her OV. Message was left on patients VM stating this nurse will check in later in the month/closer to start date to review medications. Carla Almonte RN ORAL ANTI-CANCER AGENTS EDUCATION Called and left a message requesting a call back to confirm that patient received oral chemo information. Carla Almonte RN documented in this encounter [facility] 10-14-2023 Telephone encounter Note [place] Care Coordination FOLLOW-UP NOTE Patient identified by name and date of . YES Spoke to patient Summary: (Reason for follow-up) Received Xeloda and Tukysa today. Patient stated she is supposed to start around 11/02 or 11/03? Please confirm. Thank you. Care Coordination Plan: Will follow up after speaking to Dr. Silvestre Almonte RN October 14, 2023 [facility] 10-14-2023 Telephone encounter Note Patient received it this morning. [facility] Work Phone: 10-14-2023 Telephone encounter Note Left patient a message to contact this nurse. Did patient receive Tukysa or when will she receive Tukysa? Jazlyn Harding LPN [facility] 10-11-2023 History of Presen t illness Narrative Oncologic problem(s): 1) Metastatic recurrence of ER positive, WV negative, HER2 positive breast cancer. 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 HPI: The patient is a 67 year old female who discovered a lump on the lower inner portion of her right breast in the fall of 2015. She was seen at [facility] and underwent a right sided core biopsy on 02/16/2016 by interventional radiology. The tissue specimen demonstrated invasive ductal carcinoma, Yohan grade 2. ER positive (90%, very weak) and WV negative (0%). HER-2 was quantified at 3+. [...] 3) Nerlyx-stopped d/t diarrhea. Last dose of neratinib . I'm never taking that again. Seen here in early March for complaint of right breast fullness and tenderness. Diagnostic mammogram done on 03/07/2019 did not demonstrate a mass within the breast however on ultrasound there was a 0.8 cm x 0.6 cm x 0.9 cm lobulated mass with an indistinct margin in the right breast at 1:00 anterior depth 6 cm in the nipple. It was lobulated and hypoechoic with internal echoes. This corresponded to the tender area. There was also a 1.2 x 0.9 x 2 cm lobulated mass with a circumscribed margin in the right breast at 2:00 anterior depth 7 cm from the nipple. It also was hypoechoic with internal echoes. And it also was tender on exam. Patient next underwent ultrasound-guided right breast needle core biopsy 2 on 03/22/2019. Pathology: MICROSCOPIC DIAGNOSIS A. Right breast at 1 o clock, core biopsy: Invasive ductal carcinoma with the following characteristics: Maximal length - 10 mm Nuclear grade - 3/3 Other findings - ductal carcinoma in situ, nuclear 3/3 with focal comedo necrosis. B. Right breast at 2 o clock, core biopsy: Invasive ductal carcinoma with the following characteristics: Maximal length - 1.2 mm Nuclear grade - 2-3/3 ANTIBODY / CLONE RESULT Block A P53 (DO-7) positive, >90% Ki-67 (30-9) positive, 12% CK8 (96ttcfG62) positive CK5-6 (D5 & 1684) negative Calponin-1 (UU253V) negative P40 (BC28) negative E-Cad (ECH-6) positive MORPHOMETRIC ANALYSIS ER (clone 6F11) 15%, weak intensity WV (clone 16/1E2) 0% Her-2Neu (clone CB11) 3+ Block B Calponin-1 (KM945C) negative P40 (BC28) negative CK8 (36ceorM06) positive INTERPRETATION: A. Right breast 1 o clock, biopsy: Invasive ductal carcinoma, grade 3/3. Positive for estrogen receptors (favorable prognostic indicator). Negative for progesterone receptors (unfavorable prognostic indicator). Positive for overexpression of SKV7mnf. B. Right breast 2 o clock, biopsy: Invasive ductal carcinoma, grade 2-3/3. Then underwent right breast modified mastectomy along with axillary lymph node dissection on 04/02/2019. Pathology: MICROSCOPIC DIAGNOSIS Right breast, modified radical mastectomy: Invasive ductal carcinoma x2. Ductal carcinoma in situ. Five out of five lymph nodes, negative for metastatic carcinoma. Hyalinized fibroadenomas x2. See cancer summary below. SJ:breann 04/05/19 INVASIVE BREAST CANCER SUMMARY: Specimen - total breast (including nipple and skin). Procedure - total mastectomy (including nipple and skin). Lymph node sampling - axillary dissection Specimen integrity - single, intact specimen Specimen laterality - right Tumor site - inner quadrant Tumor size: size of largest invasive carcinoma - 3.5 x 1.5 x 1.5 cm Tumor focality - two foci of invasive carcinoma Size of individual foci - 3.5 x 1.5 x 1.5 cm and 2 x 2 x 1 cm Macroscopic and Microscopic extent of tumor: Skin - invasive carcinoma does not invade into the dermis or epidermis. Nipple - DCIS does not involve nipple epidermis. Skeletal muscle - Skeletal muscle is present and is free of carcinoma. Ductal carcinoma in situ (DCIS) - present Extensive intraductal component (EIC) - negative Estimated size (extent) of DCIS - DCIS is present in the area of invasive carcinoma and comprise about 5% of the total tumor volume. Number of blocks with DCIS - 7 Number of blocks examined (breast tissue) - 16 Architectural patterns - cribriform and comedo Nuclear grade - grade 3 (high) Necrosis - present, central (expansive comedo necrosis) Lobular carcinoma in situ (LCIS) - not identified Histologic type of invasive carcinoma - invasive ductal carcinoma (no special type) Histologic Grade (Yohan grade): Glandular/tubular differentiation - score 3 Nuclear pleomorphism - score 3 Mitotic count - score 2 Overall grade - 3 (score of 8) Both tumor show similar morphologic features. Margins - larger focus of invasive carcinoma is present at the closest posterior margin of the specimen. - smaller focus of invasive carcinoma is 1.7 cm away from closest superior margin. - Margins are free of ductal carcinoma in situ. Treatment effect: Response to presurgical (neoadjuvant) therapy - no known presurgical therapy. Lymph-Vascular invasion - not identified Dermal lymph-vascular invasion - not identified Lymph nodes: Number of sentinel lymph nodes examined - 0 Total number of lymph nodes examined (sentinel and nonsentinel) - 5 Number of lymph nodes with macrometastases, micrometastases and isolated tumor cells - 0 Distant metastasis - not applicable Additional pathologic findings - hyalinized fibroadenomas x2 with focal calcifications. See comment. - Dense fibrosis and lobular involution. Ancillary studies - previously performed on section of tumor ([id number] / [id number]). ER - positive (15%, weak intensity) WV - negative (0%) Her2 krista - positive (3+) Microcalcifications - present in both invasive carcinoma and non-neoplastic tissue. Clinical history - Please make reference to previous specimen ([id number]) right breast at 1 o clock and right breast at 2 o clock core biopsies with diagnosis of invasive ductal carcinoma. PATHOLOGIC STAGE: pT2(m) pN0 Mx Evidently the larger focus of cancer was down to the chest wall muscle. Other significant past medical history was asymptomatic decline in ejection fraction 1 receiving Herceptin. Serial echocardiograms--March 2016 at that time he demonstrated ejection fraction of 72%. Another echocardiogram in September 2016 demonstrated ejection fraction of 55%. In November 2016 was 50% and in May 2017 was 45% with mild global hypokinesis. managed with beta-ruth and ARB. Most recent echocardiogram from May 2018 revealed normal left ventricular size with systolic function at lower limits of normal estimated at 53%. The global longitudinal strain was -19.4% (normal) cis. Stage I diastolic dysfunction was observed. Pulmonary artery pressure was 27 mmHg. ---- Had staging CTs scans that suggested lung metastases. Not able to biopsy. Previous therapy: 1) Taxotere/Herceptin/Perjeta. 2) Herceptin/Perjeta. Discontinued 01/2021 for progressive disease. 3) Kadcyla. 02/2021 through 07/2021. Discontinued secondary to significant worsening of neuropathy. 4) SBRT DYLAN metastasis completed 03/02/2023. 5) Enhertu. Interim history: Completed RT 09/30/2023. Fatigued. No longer having a cough. Dyspnea with exertion stable. No chest pain. Claritin daily. No further RUQ pain. Subcutaneous metastasis on the anterior lower chest wall remains no longer palpable to her. 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 Symptoms remain well controlled and stable. PMH, medications and allergies personally reviewed by me today. Any changes documented in appropriate section. ROS: Constitutional: Denies episodes of fever and night sweats. Not significantly fatigued. Normal appetite. Neuro: Denies [place], vertigo, dizziness and imbalance. HEENT: No recent change in voice, vision or hearing. Resp: See above. CVS: See above. GI: Denies dysgeusia. Denies symptoms of stomatitis. Denies dysphagia and odynophagia. Denies abdominal pain. : Denies dysuria or gross hematuria. No symptoms of bladder outlet obstruction. Endo: Denies hot flashes. Denies polyuria and polydipsia. Denies heat and cold intolerance. Musculoskeletal: Denies bone, back, joint and muscular pain. Derm: Denies rash. Denies jaundice and diffuse pruritis. Heme: Denies unusual bleeding and unexplained bruising. Psych: Normal mood. PHYSICAL EXAM: Vitals: Blood pressure 112/71, pulse (!) 52, temperature 36.5 C (97.7 F), temperature source Temporal, weight 82.3 kg (181 lb 8 oz), SpO2 93%. Well-appearing and in no acute distress. EYES: Sclerae are anicteric bilaterally. LYMPHATIC: There is no palpable cervical, supraclavicular adenopathy. RESPIRATORY: Normal vesicular breath sounds in all barnes. No rales, wheezes or rhonchi. CARDIOVASCULAR: Rhythm is regular. BREAST: Not examined today. ABDOMEN: The abdomen is nondistended. Extremities: No swelling or edema. SKIN: Continued resolution of subcutaneous metastasis near xyphoid. LABS: ASSESSMENT/PLAN: (C50.311, Z17.0) Malignant neoplasm of lower-inner quadrant of right breast of female, estrogen receptor positive (HCC) (primary encounter diagnosis) (C79.51) Bone metastases (HCC) (C78.01, C78.02) Malignant neoplasm metastatic to both lungs (HCC) (I42.7, T45.1X5A) Chemotherapy-induced cardiomyopathy (HCC) Assessment: -Originally pT2 pN0(sln) MX ER positive (9%, very weak) WV negative HER overexpressed stage IIA invasive ductal carcinoma the right breast. -Recurrent pT2(m) pN0 (none of 5 LNs) MX ER +(15%, weak intensity)/WV negative (0%) HER2 3+ invasive ductal carcinoma the right breast while on AI (anastrozole). Posterior margin positive--more than just focal according to pathologist. Pectoralis fascia rem she calixto. Staging workup revealed multiple lung metastases, not biopsy proven. -Tolerated Enhertu overall very well but recent progressive disease with right lung metastasis. PET scan demonstrated that to be only site of radiographically evident disease. -Receiving and tolerating radiation very well. -No symptoms of cardiomyopathy. Blood pressure remains well controlled. -Again discussed rationale for rotating therapy to capecitabine, tucatinib and Herceptin. Discussed potential side effects of that therapy. -She has been receiving Herceptin. Tolerating well. -Reviewed counts. Allows continued therapy. -No symptoms of CHF or pneumonitis. Benefit of treatment outweighs risk. Plan: -Continue Herceptin. -To start capecitabine and Tucatinib when receives meds. -Continue metoprolol to 25 mg BID. -Continue Cozaar 100 mg daily. -Continue Lyrica 150 mg at HS. -Zometa every 3 months (originally started for hypercalcemia). -Continue follow-up with Dr. Galeano. -Previously stopped IBU for increase in serum Cr. -Continue potassium chloride 20 mEq daily. (G62.0, T45.1X5A) Chemotherapy-induced neuropathy (HCC) Assessment: -No subjective change. -Symptoms remain well controlled with Lyrica. Plan: -Continue Lyrica 150 mg twice daily. Thyroid nodules. Stable on US fall 2022 and recent PET 08/2023. One year follow up recommended. Portions of this documentation were copied and pasted from previous office visit notes in order to provide a cohesive continuity of the history. The note has been reviewed and edited and updated as necessary. I spent a total of 15 minutes on the date of the service which included preparing to see the patient, [id number] patient care, completing clinical documentation, obtaining and/or reviewing separately obtained history, performing a medically appropriate examination, counseling and educating the patient/family/caregiver, ordering medications, tests, or procedures, communicating with other HCPs (not separately reported), and communicating results to the patient/family/caregiver. Rip Rivers DO documented in this encounter [facility] 09-30-2023 Nurse Note AMBULATORY PATIENT EDUCATION NOTE TOPIC: SURVIVAL SKILLS: Symptom Management READINESS TO LEARN COGNITIVE ABILITY: Alert and oriented MOTIVATION TO LEARN: Eager Interested FAMILY SUPPORT: High - Very involved in pt care INSTRUCTION PROVIDED TO: Patient and family member PATIENT LEARNS BEST BY: Multiple Methods FACTORS AFFECTING LEARNING: None PHYSICAL LIMITATIONS AFFECTING LEARNING: Fatigue LEARNING RESPONSE DIAGNOSIS: C50.311 METHOD OF INSTRUCTION: Teach Back skin care Individual instruction Written instruction - handouts Verbal instruction PATIENT / FAMILY RESPONSE: Verbalizes understanding of: SYMPTOM MANAGEMENT-Correct actions to take to manage symptoms associated with his/her disease/illness FOLLOW-UP PLAN: Patient instructed to call with any further issues Reinforce - Repeat previous content Contact information given. SUPPLEMENTAL MATERIAL: D/C sheet REFERRAL (RECOMMENDATION): None Written discharge instructions given and reviewed with patient. Patient verbalizes understanding. Encouraged to call with any questions or concerns. Instruction for 4 week phone follow up appointment given by Dr. Garay. Electronically Signed By: Mady Medina RN In Department: RADIATION ONCOLOGY Time spent on patient education: 10 minutes. [facility] 09-30-2023 Nurse Note AMBULATORY PATIENT EDUCATION NOTE TOPIC: SURVIVAL SKILLS: Symptom Management READINESS TO LEARN COGNITIVE ABILITY: Alert and oriented MOTIVATION TO LEARN: Eager Interested FAMILY SUPPORT: High - Very involved in pt care INSTRUCTION PROVIDED TO: Patient and family member PATIENT LEARNS BEST BY: Multiple Methods FACTORS AFFECTING LEARNING: None PHYSICAL LIMITATIONS AFFECTING LEARNING: Fatigue LEARNING RESPONSE DIAGNOSIS: C50.311 METHOD OF INSTRUCTION: Teach Back skin care Individual instruction Written instruction - handouts Verbal instruction PATIENT / FAMILY RESPONSE: Verbalizes understanding of: SYMPTOM MANAGEMENT-Correct actions to take to manage symptoms associated with his/her disease/illness FOLLOW-UP PLAN: Patient instructed to call with any further issues Reinforce - Repeat previous content Contact information given. SUPPLEMENTAL MATERIAL: D/C sheet REFERRAL (RECOMMENDATION): None Written discharge instructions given and reviewed with patient. Patient verbalizes understanding. Encouraged to call with any questions or concerns. Instruction for 4 week phone follow up appointment given by Dr. Garay. Electronically Signed By: Mady Medina, RN In Department: RADIATION ONCOLOGY Time spent on patient education: 10 minutes. documented in this encounter [facility] 09-30-2023 History of Presen t illness Narrative RENATE CHRISTIANSEN [id number] : 1955 09/30/2023 [facility] Department of Radiation Oncology RADIATION ONCOLOGY - COMPLETION NOTE DATE OF SIMULATION: 09/13/23 DATES OF TREATMENT: 09/21/23 - 09/30/23 UNIT: [id number]_[facility] AREA TREATED: Right middle lung DISEASE: Metastatic breast cancer with solitary progression of lung metastasis. DELIVERED DOSE: 5000 cGy in 5 fractions treating to the 75.9% isodose line with 6fff MV and 3 vmat barnes. ELAPSED TIME: 9 days. TOLERANCE/ RESPONSE: She is doing well without any specific new complaints. REMARKS: She tolerated radiation treatment well. Four week follow-up with me. Staff Physician MEENU GARAY M.D. / 41:56 PM documented in this encounter [facility] 2023 Nurse Note Radiation Therapy - Nursing Note (OTV) PATIENT NAME: Renate Christiansen PATIENT 2023 [facility] FACILITY/LOCATION: [place] NURSING NOTE TYPE: CHEST Subjective Data no complaints Additional Data Do you want to see a Recreation Supervisor? No Status: Post-menopausal. Stress Scale: On a scale of 0 to 10, what number best describes how much distress you have experienced in the past week?(0 being no distress and 10 being extreme distress) 6 Social work notified: Pt denied need to see social work administrator at this time. Nursing Assessment Fatigue: none Appetite: good Nutritional Intake: Regular oral intake. Weight Gain/Loss: No Ambulatory weight history: Last 6 Encounter Wt Readings: Date: Wt: 09/21/2023 82.3 kg (181 lb 8 oz) 09/21/2023 82.3 kg (181 lb 8 oz) 08/30/2023 84.4 kg (186 lb) 08/30/2023 84.4 kg (186 lb) 08/26/2023 86.2 kg (190 lb) 08/10/2023 86.2 kg (190 lb) Nausea:None Vomiting: None Bowel Function: normal bowel movements Erythema/Hyperpigmentation:none Desquamation:none Rash:none Skin Care: None Skin Sensation: Within Normal Limits Focused Assessment CHEST: Dysphagia: No. Pain with swallowing: No. Shortness of breath: No. Cough: None. SIGNED by: Dee Douglas RN [facility] 2023 History of Presen t illness Narrative Radiation Oncology - On Treatment Review (OTR) Note PATIENT NAME: Renate Christiansen PATIENT DIAGNOSIS: Metastatic breast cancer with solitary progression of lung metastasis. COURSE: SBRT (stereotactic body radiotherapy) AREA TREATED: Right lung CURRENT DOSE: 4000 cGy in 4 fx PLANNED DOSE: 5000 cGy in 5 fx Status: Post-menopausal SUBJECTIVE: She is doing well without any specific new complaints. EXAM: KPS: 90 General Appearance: Alert and oriented. No acute distress. IMAGING/LAB RESULTS: None Treatment chart checked: Yes Patient treatment site reviewed and verified:Yes Port films reviewed and current:Yes Medications started: None ASSESSMENT/PLAN: Clinically stable. No signs of toxicity. Continue radiation treatment as planned. Meenu Garay MD documented in this encounter [facility] 2023 Nurse Note Radiation Therapy - Nursing Note (OTV) PATIENT NAME: Renate Christiansen PATIENT 2023 [facility] FACILITY/LOCATION: [place] NURSING NOTE TYPE: CHEST Subjective Data no complaints Additional Data Do you want to see a Recreation Supervisor? No Status: Post-menopausal. Stress Scale: On a scale of 0 to 10, what number best describes how much distress you have experienced in the past week?(0 being no distress and 10 being extreme distress) 6 Social work notified: Pt denied need to see social work administrator at this time. Nursing Assessment Fatigue: none Appetite: good Nutritional Intake: Regular oral intake. Weight Gain/Loss: No Ambulatory weight history: Last 6 Encounter Wt Readings: Date: Wt: 09/21/2023 82.3 kg (181 lb 8 oz) 09/21/2023 82.3 kg (181 lb 8 oz) 08/30/2023 84.4 kg (186 lb) 08/30/2023 84.4 kg (186 lb) 08/26/2023 86.2 kg (190 lb) 08/10/2023 86.2 kg (190 lb) Nausea:None Vomiting: None Bowel Function: normal bowel movements Erythema/Hyperpigmentation:none Desquamation:none Rash:none Skin Care: None Skin Sensation: Within Normal Limits Focused Assessment CHEST: Dysphagia: No. Pain with swallowing: No. Shortness of breath: No. Cough: None. SIGNED by: Dee Douglas RN documented in this encounter [facility] 09-23-2023 Telephone encounter Note Patient had called back and stated she did not receive packet of information. Information was left for patient at check in desk on Tuesday and patient picked up at her OV. Message was left on patients VM stating this nurse will check in later in the month/closer to start date to review medications. Carla Almonte RN [facility] 09-22-2023 History of Presen t illness Narrative No changes to assessment from OV yesterday. Lexie Hartley RN documented in this encounter [facility] 09-21-2023 History of Presen t illness Narrative Oncologic problem(s): 1) Metastatic recurrence of ER positive, WV negative, HER2 positive breast cancer. 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 HPI: The patient is a 67 year old female who discovered a lump on the lower inner portion of her right breast in the fall of 2015. She was seen at [facility] and underwent a right sided core biopsy on 02/16/2016 by interventional radiology. The tissue specimen demonstrated invasive ductal carcinoma, Sorento grade 2. ER positive (90%, very weak) and WV negative (0%). HER-2 was quantified at 3+. [...] 3) Nerlyx-stopped d/t diarrhea. Last dose of neratinib . I'm never taking that again. Seen here in early March for complaint of right breast fullness and tenderness. Diagnostic mammogram done on 03/07/2019 did not demonstrate a mass within the breast however on ultrasound there was a 0.8 cm x 0.6 cm x 0.9 cm lobulated mass with an indistinct margin in the right breast at 1:00 anterior depth 6 cm in the nipple. It was lobulated and hypoechoic with internal echoes. This corresponded to the tender area. There was also a 1.2 x 0.9 x 2 cm lobulated mass with a circumscribed margin in the right breast at 2:00 anterior depth 7 cm from the nipple. It also was hypoechoic with internal echoes. And it also was tender on exam. Patient next underwent ultrasound-guided right breast needle core biopsy 2 on 03/22/2019. Pathology: MICROSCOPIC DIAGNOSIS A. Right breast at 1 o clock, core biopsy: Invasive ductal carcinoma with the following characteristics: Maximal length - 10 mm Nuclear grade - 3/3 Other findings - ductal carcinoma in situ, nuclear 3/3 with focal comedo necrosis. B. Right breast at 2 o clock, core biopsy: Invasive ductal carcinoma with the following characteristics: Maximal length - 1.2 mm Nuclear grade - 2-3/3 ANTIBODY / CLONE RESULT Block A P53 (DO-7) positive, >90% Ki-67 (30-9) positive, 12% CK8 ([id number]) positive CK5-6 (D5 & 1684) negative Calponin-1 (MN590N) negative P40 (BC28) negative E-Cad (ECH-6) positive MORPHOMETRIC ANALYSIS ER (clone 6F11) 15%, weak intensity WV (clone 16/1E2) 0% Her-2Neu (clone CB11) 3+ Block B Calponin-1 (IP131L) negative P40 (BC28) negative CK8 ([id number]) positive INTERPRETATION: A. Right breast 1 o clock, biopsy: Invasive ductal carcinoma, grade 3/3. Positive for estrogen receptors (favorable prognostic indicator). Negative for progesterone receptors (unfavorable prognostic indicator). Positive for overexpression of UNA0bhk. B. Right breast 2 o clock, biopsy: Invasive ductal carcinoma, grade 2-3/3. Then underwent right breast modified mastectomy along with axillary lymph node dissection on 04/02/2019. Pathology: MICROSCOPIC DIAGNOSIS Right breast, modified radical mastectomy: Invasive ductal carcinoma x2. Ductal carcinoma in situ. Five out of five lymph nodes, negative for metastatic carcinoma. Hyalinized fibroadenomas x2. See cancer summary below. SJ:breann 04/05/19 INVASIVE BREAST CANCER SUMMARY: Specimen - total breast (including nipple and skin). Procedure - total mastectomy (including nipple and skin). Lymph node sampling - axillary dissection Specimen integrity - single, intact specimen Specimen laterality - right Tumor site - inner quadrant Tumor size: size of largest invasive carcinoma - 3.5 x 1.5 x 1.5 cm Tumor focality - two foci of invasive carcinoma Size of individual foci - 3.5 x 1.5 x 1.5 cm and 2 x 2 x 1 cm Macroscopic and Microscopic extent of tumor: Skin - invasive carcinoma does not invade into the dermis or epidermis. Nipple - DCIS does not involve nipple epidermis. Skeletal muscle - Skeletal muscle is present and is free of carcinoma. Ductal carcinoma in situ (DCIS) - present Extensive intraductal component (EIC) - negative Estimated size (extent) of DCIS - DCIS is present in the area of invasive carcinoma and comprise about 5% of the total tumor volume. Number of blocks with DCIS - 7 Number of blocks examined (breast tissue) - 16 Architectural patterns - cribriform and comedo Nuclear grade - grade 3 (high) Necrosis - present, central (expansive comedo necrosis) Lobular carcinoma in situ (LCIS) - not identified Histologic type of invasive carcinoma - invasive ductal carcinoma (no special type) Histologic Grade (Yohan grade): Glandular/tubular differentiation - score 3 Nuclear pleomorphism - score 3 Mitotic count - score 2 Overall grade - 3 (score of 8) Both tumor show similar morphologic features. Margins - larger focus of invasive carcinoma is present at the closest posterior margin of the specimen. - smaller focus of invasive carcinoma is 1.7 cm away from closest superior margin. - Margins are free of ductal carcinoma in situ. Treatment effect: Response to presurgical (neoadjuvant) therapy - no known presurgical therapy. Lymph-Vascular invasion - not identified Dermal lymph-vascular invasion - not identified Lymph nodes: Number of sentinel lymph nodes examined - 0 Total number of lymph nodes examined (sentinel and nonsentinel) - 5 Number of lymph nodes with macrometastases, micrometastases and isolated tumor cells - 0 Distant metastasis - not applicable Additional pathologic findings - hyalinized fibroadenomas x2 with focal calcifications. See comment. - Dense fibrosis and lobular involution. Ancillary studies - previously performed on section of tumor ([id number] / [id number]). ER - positive (15%, weak intensity) WV - negative (0%) Her2 krista - positive (3+) Microcalcifications - present in both invasive carcinoma and non-neoplastic tissue. Clinical history - Please make reference to previous specimen ([id number]) right breast at 1 o clock and right breast at 2 o clock core biopsies with diagnosis of invasive ductal carcinoma. PATHOLOGIC STAGE: pT2(m) pN0 Mx Evidently the larger focus of cancer was down to the chest wall muscle. Other significant past medical history was asymptomatic decline in ejection fraction 1 receiving Herceptin. Serial echocardiograms--March 2016 at that time he demonstrated ejection fraction of 72%. Another echocardiogram in September 2016 demonstrated ejection fraction of 55%. In November 2016 was 50% and in May 2017 was 45% with mild global hypokinesis. managed with beta-ruth and ARB. Most recent echocardiogram from May 2018 revealed normal left ventricular size with systolic function at lower limits of normal estimated at 53%. The global longitudinal strain was -19.4% (normal) cis. Stage I diastolic dysfunction was observed. Pulmonary artery pressure was 27 mmHg. ---- Had staging CTs scans that suggested lung metastases. Not able to biopsy. Previous therapy: 1) Taxotere/Herceptin/Perjeta. 2) Herceptin/Perjeta. Discontinued 01/2021 for progressive disease. 3) Kadcyla. 02/2021 through 07/2021. Discontinued secondary to significant worsening of neuropathy. 4) SBRT DYLAN metastasis completed 03/02/2023. 5) Enhertu. Interim history: Currently receiving radiation to right lung metastasis. Only one on PET. Had some swelling ankles with last Enhertu. Self resolved. URI symptoms with post nasal drip that caused coughing. Self resolved after about 3 days. Dyspnea with exertion now at baseline. No cough. Back to taking Claritin daily. No further RUQ pain. Subcutaneous metastasis on the anterior lower chest wall remains no longer palpable to her. 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 Symptoms remain well controlled and stable. PMH, medications and allergies personally reviewed by me today. Any changes documented in appropriate section. ROS: Constitutional: Denies episodes of fever and night sweats. Not significantly fatigued. Normal appetite. Neuro: Denies [place], vertigo, dizziness and imbalance. HEENT: No recent change in voice, vision or hearing. Resp: See above. CVS: See above. GI: Denies dysgeusia. Denies symptoms of stomatitis. Denies dysphagia and odynophagia. Denies abdominal pain. : Denies dysuria or gross hematuria. No symptoms of bladder outlet obstruction. Endo: Denies hot flashes. Denies polyuria and polydipsia. Denies heat and cold intolerance. Musculoskeletal: Denies bone, back, joint and muscular pain. Derm: Denies rash. Denies jaundice and diffuse pruritis. Heme: Denies unusual bleeding and unexplained bruising. Psych: Normal mood. PHYSICAL EXAM: Vitals: Blood pressure 125/82, pulse 76, temperature 37 C (98.6 F), temperature source Temporal, weight 82.3 kg (181 lb 8 oz), SpO2 95%. Well-appearing and in no acute distress. EYES: Sclerae are anicteric bilaterally. LYMPHATIC: There is no palpable cervical, supraclavicular adenopathy. RESPIRATORY: Normal vesicular breath sounds in all barnes. No rales, wheezes or rhonchi. CARDIOVASCULAR: Rhythm is regular. BREAST: Not examined today. ABDOMEN: The abdomen is nondistended. Extremities: No swelling or edema. SKIN: Continued resolution of subcutaneous metastasis near xyphoid. LABS: Latest Ref [facility] 09/21/2023 WBC 3.70 - 11.00 k/uL 4.48 RBC 3.90 - 5.20 m/uL 3.92 Hemoglobin 11.5 - 15.5 g/dL 13.7 Hematocrit 36.0 - 46.0 % 40.8 MCV 80.0 - 100.0 fL 104.1 (H) MCH 26.0 - 34.0 pg 34.9 (H) MCHC 30.5 - 36.0 g/dL 33.6 RDW-CV 11.5 - 15.0 % 14.5 Platelet Count 150 - 400 k/uL 156 MPV 9.0 - 12.7 fL 9.8 Neut% % 53.8 Abs Neut (ANC) 1.45 - 7.50 k/uL 2.41 Lymph% % 25.7 Abs Lymph 1.00 - 4.00 k/uL 1.15 Cotton% % 11.6 Abs Cotton <0.87 k/uL 0.52 Eosin% % 7.8 Abs Eosin <0.46 k/uL 0.35 Baso% % 0.9 Abs Baso <0.11 k/uL 0.04 Immature Gran % % 0.2 IMMATURE GRANS (ABS) <0.10 k/uL <0.03 NRBC /100 WBC 0.0 Absolute nRBC <0.01 k/uL <0.01 DTYPE Auto ASSESSMENT/PLAN: (C50.311, Z17.0) Malignant neoplasm of lower-inner quadrant of right breast of female, estrogen receptor positive (HCC) (primary encounter diagnosis) (C79.51) Bone metastases (HCC) (C78.01, C78.02) Malignant neoplasm metastatic to both lungs (HCC) (I42.7, T45.1X5A) Chemotherapy-induced cardiomyopathy (HCC) Assessment: -Originally pT2 pN0(sln) MX ER positive (9%, very weak) WV negative HER overexpressed stage IIA invasive ductal carcinoma the right breast. -Recurrent pT2(m) pN0 (none of 5 LNs) MX ER +(15%, weak intensity)/WV negative (0%) HER2 3+ invasive ductal carcinoma the right breast while on AI (anastrozole). Posterior margin positive--more than just focal according to pathologist. Pectoralis fascia rem she calixto. Staging workup revealed multiple lung metastases, not biopsy proven. -Tolerated Enhertu overall very well but recent progressive disease with right lung metastasis. PET scan demonstrated that to be only site of radiographically evident disease. -Receiving and tolerating radiation very well. -No symptoms of cardiomyopathy. Blood pressure remains well controlled. -Again discussed rationale for rotating therapy to capecitabine, tucatinib and Herceptin. Discussed potential side effects of that therapy. -She has been receiving Herceptin. Tolerating well. -Reviewed counts. Allows continued therapy. -No symptoms of CHF or pneumonitis. Benefit of treatment outweighs risk. Plan: -Continue RT. -Continue Herceptin. -To start capecitabine and Tucatinib about 2 to 3 weeks after completes radiation. -Continue metoprolol to 25 mg BID. -Continue Cozaar 100 mg daily. -Continue Lyrica 150 mg at HS. -Zometa every 3 months (originally started for hypercalcemia). -Due for echocardiogram--will order at [facility]. -Continue follow-up with Dr. Galeano. -Previously stopped IBU for increase in serum Cr. -Continue potassium chloride 20 mEq daily. (G62.0, T45.1X5A) Chemotherapy-induced neuropathy (HCC) Assessment: -No subjective change. -Symptoms remain well controlled with Lyrica. Plan: -Continue Lyrica 150 mg twice daily. RUQ pain. -Reviewed US results. Normal GB. -Self resolved. Thyroid nodules. Stable on US fall 2022 and recent PET 08/2023. One year follow up recommended. Portions of this documentation were copied and pasted from previous office visit notes in order to provide a cohesive continuity of the history. The note has been reviewed and edited and updated as necessary. Rip Rivers DO documented in this encounter [facility] 09-16-2023 Telephone encounter Note ORAL ANTI-CANCER AGENTS EDUCATION Called and left a message requesting a call back to confirm that patient received oral chemo information. Carla Almonte RN [facility] 09-15-2023 History of Presen t illness Narrative Radiology Service Progress Note PATIENT NAME: Renate Christiansen DATE OF SERVICE: September 15, 2023 TIME: 1:44 PM PATIENT IDENTITY VERIFICATION COMPLETED USING TWO (2) IDENTIFIERS: Name and Date of confirmed by patient verbally. FALL SCREENING: Has the patient had 2 falls in the last year or 1 fall with injury or currently using an Ambulatory Assistive Device (Walker, Cane, Wheelchair, Crutches, etc.)? No PATIENT GENDER DATA: Female. status: : No status: NO. PATIENT RELEVANT IMPLANT DATA REVIEWED: Not Applicable PATIENT PRESENTS WITH AN IMPLANTABLE OR ATTACHED PUBLICATIONS EDITOR: No RADIOLOGY DEPARTMENT: Ultrasound PERIPHERAL IV DATA: Not applicable SIGNED BY: Jazmin Jacobsen RDMS RVT September 15, 2023 1:44 PM documented in this encounter [facility] 09-13-2023 Nurse Note Radiation Therapy - Patient Education Note PATIENT NAME: Renate Christiansen PATIENT September 13, 2023 [facility] FACILITY/LOCATION: [place] READINESS TO LEARN Cognitive Ability: Alert and oriented Motivation to learn: Eager Family Support: High - Very involved in pt care Instruction provide to: Patient and Spouse Patient learns best by: Individual Instruction Written Instruction - Hand-outs Verbal Instruction Factors effecting learning: None Physical limitations effecting learning: None LEARNING RESPONSE Diagnosis: Pt simulated today for radiation therapy to right lung. Education Topic/Teaching Points: Radiation therapy, Side effects, and OTV: Method of instruction: Teach Back skin care Individual instruction Written instruction - handouts Verbal instruction Patient /Family response: Patient and family verbalized understanding of radiation treatments, side effects, OTV, and transportation. Follow-up plan: Complete - No need for follow-up Contact information given. Supplemental material: Informational handouts on Esophagitis/Mucositis, Fatigue, and Skin changes. Referral (recommendation): None, Pt denied need for social work, van service, and spa manager/esthetician. Patient has an Onbody or Implanted device: No Signed by: Dee Douglas RN documented in this encounter [facility] 09-13-2023 History of Presen t illness Narrative RENATE CHRISTIANSEN [id number] 09/13/2023 [facility] Department of Radiation Oncology [facility] RADIATION ONCOLOGY SIMULATION NOTE DATE OF SIMULATION: 09/13/2023 MACHINE: Caspida Definition CT Simulator Diagnosis: Metastatic breast cancer with solitary progression of lung metastasis. AREA:Right Lung. PATIENT POSITION: Supine. CONTRAST: None PROTOCOL: None BLOCKING: Custom blocking to be determined at treatment planning. FIXATION DEVICE: In order to achieve accurate and reproducible treatments, the patient is to be immobilized with Abcellute SBRT system, compression belt, and bodyfix. PROCEDURE: A time-out was conducted and recorded by the therapist. Patient was simulated on the CT scanner for external beam radiation therapy. Treatment site was marked by the simulation therapist. ASSESSMENT/PLAN: Patient tolerated simulation procedure well. Treatments will be initiated after treatment planning. The patient is scheduled for a verification simulation on the treatment machine to ensure proper set-up and field arrangement is correct prior to the first treatment of primary and boost barnes if applicable. Electronically Signed Meenu Garay M.D./hudson 41:57 PM documented in this encounter [facility] 09-13-2023 History of Presen t illness Narrative RENATE CHRISTIANSEN [id number] 09/13/2023 [facility] Department of Radiation Oncology Treatment Planning Note For reasons stated in the consult note, Renate Christiansen is a candidate for radiation therapy. Based on review and interpretation of the relevant diagnostic studies together with the exam findings, Renate Christiansen was simulated on 09/13/2023 at which time the target volume and/or requisite barnes were delineated, as indicated in the simulation note, to be treated according to the prescription. An ITV was created from all the phases of respiratory motion captured by the 4DCT image sets. Motion management allowed for design of patient specific planning target volume and reduced the radiation exposure to normal tissues. The treatment target and organs at risk were contoured on the simulation scan using the fused PET. Special consideration to these and other structures was given in light of the potential for increased toxicities of stereotactic body radiation therapy (SBRT). After reviewing multiple treatment plans with dosimetry, the best plan was approved to deliver the prescribed course of radiation to the target area using inverse planning to allow for the best isodose distribution, treating to the 75.9% isodose line with 6fff MV and 3 vmat barnes. Custom MLC for IMRT were the treatment device(s) used to shape/modify the beams. Limiting dose to normal tissue was confirmed upon review of the calculated dose volume histogram. IMRT planning was used because it best met the dose/volume constraints for the organs at risk for this patient, better than what could be achieved using conventional or 3D planning. The specific dose requirements for the PTV, organs at risk and dose-volume histograms are contained in this treatment plan and/or elsewhere in the medical record. A completed summary of this plan dated 09/16/2023 incorporated herein by reference includes dose, beam arrangements, energy, blocking, isodose distribution, and/or ports and DVH. Electronically Signed Meenu Garay M.D. 41:56 PM documented in this encounter [facility] 09-05-2023 Miscellaneous Notes CYCLE 1/DAY 1 POST TREATMENT CALL Today's date: September 05, 2023 Treatment Regimen: Herceptin C1D1 Date: 09/01/23 Called patient to follow-up on symptom management. Spoke with patient, States she felt off 2 days later, can't really explain it but I'm fine today Had slight headache for a day but none today. SYMPTOM ASSESSMENT Neuro: None CV/Resp: None GI/: None Integument: None Activity: Activity Level (0-100%): same as baseline Pain: No=0 (pain 0 on a scale of 0-10). Fever: No Chills: No Any new referrals needed? No Reinforced CURRENT treatment education based on current and anticipated symptoms. Discussed port/line care and patient verbalizes understanding: Not Applicable Patient instructed to contact office or after hours Hematology/Oncology fellow for: temperature ? 100.4; questions or concerns. Patient verbalized understanding of when to seek medical attention and after hours number protocol. Chanelle Westfall RN documented in this encounter [facility] 08-30-2023 Miscellaneous Notes Patient informed and US scheduled Check out comments: Discontinue Enhertu, had scheduled this , can keep the apt slot and change to Herceptin Q 3 weeks. - scheduled and chemo start email sent Continue Zometa every 3 months OV TBD - scheduled in conjunction with treatments US RUQ Left message for patient to return call. When patient calls, please advise that Dr. Rivers wants her to start Herceptin/Ontruzant this at 2:00 PM. Please schedule US RUQ. Alexia Stephens documented in this encounter [facility] 08-30-2023 History of Presen t illness Narrative [facility] received prescription(s) for Capecitabine and Tukysa from Dr. Rivers's office. Benefits investigation was conducted, indicating that a prior authorization is not required at this time per patient's plan with Medicare B and [employer]. Prescriptions will now be processed through [facility] for determination of next steps. Shanna Davis documented in this encounter [facility] 08-30-2023 History of Presen t illness Narrative Diagnosis: 1) Metastatic recurrence of ER positive, WV negative, HER2 positive breast cancer. 2) Cardiomyopathy. HPI: The patient is a 67 year old female who discovered a lump on the lower inner portion of her right breast in the fall of 2015. She was seen at [facility] and underwent a right sided core biopsy on 02/16/2016 by interventional radiology. The tissue specimen demonstrated invasive ductal carcinoma, Yohan grade 2. ER positive (90%, very weak) and WV negative (0%). HER-2 was quantified at 3+. [...] 3) Nerlyx-stopped d/t diarrhea. Last dose of neratinib . I'm never taking that again. Seen here in early March for complaint of right breast fullness and tenderness. Diagnostic mammogram done on 03/07/2019 did not demonstrate a mass within the breast however on ultrasound there was a 0.8 cm x 0.6 cm x 0.9 cm lobulated mass with an indistinct margin in the right breast at 1:00 anterior depth 6 cm in the nipple. It was lobulated and hypoechoic with internal echoes. This corresponded to the tender area. There was also a 1.2 x 0.9 x 2 cm lobulated mass with a circumscribed margin in the right breast at 2:00 anterior depth 7 cm from the nipple. It also was hypoechoic with internal echoes. And it also was tender on exam. Patient next underwent ultrasound-guided right breast needle core biopsy 2 on 03/22/2019. Pathology: MICROSCOPIC DIAGNOSIS A. Right breast at 1 o clock, core biopsy: Invasive ductal carcinoma with the following characteristics: Maximal length - 10 mm Nuclear grade - 3/3 Other findings - ductal carcinoma in situ, nuclear 3/3 with focal comedo necrosis. B. Right breast at 2 o clock, core biopsy: Invasive ductal carcinoma with the following characteristics: Maximal length - 1.2 mm Nuclear grade - 2-3/3 ANTIBODY / CLONE RESULT Block A P53 (DO-7) positive, >90% Ki-67 (30-9) positive, 12% CK8 (31cgxeG46) positive CK5-6 (D5 & 1684) negative Calponin-1 (RV785X) negative P40 (BC28) negative E-Cad (ECH-6) positive MORPHOMETRIC ANALYSIS ER (clone 6F11) 15%, weak intensity WV (clone 16/1E2) 0% Her-2Neu (clone CB11) 3+ Block B Calponin-1 (EU708J) negative P40 (BC28) negative CK8 (73ipqdO46) positive INTERPRETATION: A. Right breast 1 o clock, biopsy: Invasive ductal carcinoma, grade 3/3. Positive for estrogen receptors (favorable prognostic indicator). Negative for progesterone receptors (unfavorable prognostic indicator). Positive for overexpression of NBS3ncs. B. Right breast 2 o clock, biopsy: Invasive ductal carcinoma, grade 2-3/3. Then underwent right breast modified mastectomy along with axillary lymph node dissection on 04/02/2019. Pathology: MICROSCOPIC DIAGNOSIS Right breast, modified radical mastectomy: Invasive ductal carcinoma x2. Ductal carcinoma in situ. Five out of five lymph nodes, negative for metastatic carcinoma. Hyalinized fibroadenomas x2. See cancer summary below. SJ:breann 04/05/19 INVASIVE BREAST CANCER SUMMARY: Specimen - total breast (including nipple and skin). Procedure - total mastectomy (including nipple and skin). Lymph node sampling - axillary dissection Specimen integrity - single, intact specimen Specimen laterality - right Tumor site - inner quadrant Tumor size: size of largest invasive carcinoma - 3.5 x 1.5 x 1.5 cm Tumor focality - two foci of invasive carcinoma Size of individual foci - 3.5 x 1.5 x 1.5 cm and 2 x 2 x 1 cm Macroscopic and Microscopic extent of tumor: Skin - invasive carcinoma does not invade into the dermis or epidermis. Nipple - DCIS does not involve nipple epidermis. Skeletal muscle - Skeletal muscle is present and is free of carcinoma. Ductal carcinoma in situ (DCIS) - present Extensive intraductal component (EIC) - negative Estimated size (extent) of DCIS - DCIS is present in the area of invasive carcinoma and comprise about 5% of the total tumor volume. Number of blocks with DCIS - 7 Number of blocks examined (breast tissue) - 16 Architectural patterns - cribriform and comedo Nuclear grade - grade 3 (high) Necrosis - present, central (expansive comedo necrosis) Lobular carcinoma in situ (LCIS) - not identified Histologic type of invasive carcinoma - invasive ductal carcinoma (no special type) Histologic Grade (Sorento grade): Glandular/tubular differentiation - score 3 Nuclear pleomorphism - score 3 Mitotic count - score 2 Overall grade - 3 (score of 8) Both tumor show similar morphologic features. Margins - larger focus of invasive carcinoma is present at the closest posterior margin of the specimen. - smaller focus of invasive carcinoma is 1.7 cm away from closest superior margin. - Margins are free of ductal carcinoma in situ. Treatment effect: Response to presurgical (neoadjuvant) therapy - no known presurgical therapy. Lymph-Vascular invasion - not identified Dermal lymph-vascular invasion - not identified Lymph nodes: Number of sentinel lymph nodes examined - 0 Total number of lymph nodes examined (sentinel and nonsentinel) - 5 Number of lymph nodes with macrometastases, micrometastases and isolated tumor cells - 0 Distant metastasis - not applicable Additional pathologic findings - hyalinized fibroadenomas x2 with focal calcifications. See comment. - Dense fibrosis and lobular involution. Ancillary studies - previously performed on section of tumor ([id number] / [id number]). ER - positive (15%, weak intensity) WV - negative (0%) Her2 krista - positive (3+) Microcalcifications - present in both invasive carcinoma and non-neoplastic tissue. Clinical history - Please make reference to previous specimen ([id number]) right breast at 1 o clock and right breast at 2 o clock core biopsies with diagnosis of invasive ductal carcinoma. PATHOLOGIC STAGE: pT2(m) pN0 Mx Evidently the larger focus of cancer was down to the chest wall muscle. Other significant past medical history was asymptomatic decline in ejection fraction 1 receiving Herceptin. Serial echocardiograms--March 2016 at that time he demonstrated ejection fraction of 72%. Another echocardiogram in September 2016 demonstrated ejection fraction of 55%. In November 2016 was 50% and in May 2017 was 45% with mild global hypokinesis. managed with beta-ruth and ARB. Most recent echocardiogram from May 2018 revealed normal left ventricular size with systolic function at lower limits of normal estimated at 53%. The global longitudinal strain was -19.4% (normal) cis. Stage I diastolic dysfunction was observed. Pulmonary artery pressure was 27 mmHg. ---- Had staging CTs scans that suggested lung metastases. Not able to biopsy. Previous therapy: 1) Taxotere/Herceptin/Perjeta. 2) Herceptin/Perjeta. Discontinued 01/2021 for progressive disease. 3) Kadcyla. 02/2021 through 07/2021. Discontinued secondary to significant worsening of neuropathy. 4) SBRT DYLAN metastasis completed 03/02/2023. Current therapy: 1) Enhertu. Interim history: Had diarrhea up to 4-6 times a day following last cycle. Didn't have this previously. Was having RUQ pain. Resolved. No diarrhea yesterday or today. Had nausea, but alleviated with meds. No change in appetite. wasn't sick. More fatigued. Dyspnea stable. No cough. Subcutaneous metastasis on the anterior lower chest wall remains no longer palpable to her. 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 Symptoms remain well controlled and stable. PMH, medications and allergies personally reviewed by me today. Any changes documented in appropriate section. ROS: Constitutional: Denies episodes of fever and night sweats. Not significantly fatigued. Normal appetite. Neuro: Denies [place], vertigo, dizziness and imbalance. HEENT: No recent change in voice, vision or hearing. Resp: See above. CVS: See above. GI: Denies dysgeusia. Denies symptoms of stomatitis. Denies dysphagia and odynophagia. Denies abdominal pain. : Denies dysuria or gross hematuria. No symptoms of bladder outlet obstruction. Endo: Denies hot flashes. Denies polyuria and polydipsia. Denies heat and cold intolerance. Musculoskeletal: Denies bone, back, joint and muscular pain. Derm: Denies rash. Denies jaundice and diffuse pruritis. Heme: Denies unusual bleeding and unexplained bruising. Psych: Normal mood. PHYSICAL EXAM: Vitals: Blood pressure 113/56, pulse 61, temperature 36.8 C (98.2 F), temperature source Oral, weight 84.4 kg (186 lb). Well-appearing and in no acute distress. EYES: Sclerae are anicteric bilaterally. LYMPHATIC: There is no palpable cervical, supraclavicular adenopathy. RESPIRATORY: Normal vesicular breath sounds in all barnes. No rales, wheezes or rhonchi. CARDIOVASCULAR: Rhythm is regular. BREAST: chaperoned. Right mastectomy site without chest wall mass or nodule. ABDOMEN: The abdomen is nondistended. Extremities: No swelling or edema. SKIN: Continued resolution of subcutaneous metastasis near Xyvoid. LABS: Latest Ref Rng 08/30/2023 WBC 3.70 - 11.00 k/uL 2.95 (L) RBC 3.90 - 5.20 m/uL 3.39 (L) Hemoglobin 11.5 - 15.5 g/dL 12.2 Hematocrit 36.0 - 46.0 % 35.6 (L) MCV 80.0 - 100.0 fL 105.0 (H) MCH 26.0 - 34.0 pg 36.0 (H) MCHC 30.5 - 36.0 g/dL 34.3 RDW-CV 11.5 - 15.0 % 15.0 Platelet Count 150 - 400 k/uL 169 MPV 9.0 - 12.7 fL 9.6 Neut% % 42.4 Abs Neut (ANC) 1.45 - 7.50 k/uL 1.25 (L) Lymph% % 34.6 Abs Lymph 1.00 - 4.00 k/uL 1.02 Cotton% % 14.2 Abs Cotton <0.87 k/uL 0.42 Eosin% % 7.8 Abs Eosin <0.46 k/uL 0.23 Baso% % 1.0 Abs Baso <0.11 k/uL 0.03 Immature Gran % % 0.0 IMMATURE GRANS (ABS) <0.10 k/uL <0.03 NRBC /100 WBC 0.0 Absolute nRBC <0.01 k/uL <0.01 DTYPE Auto Protein, Total 6.3 - 8.0 g/dL 5.7 (L) Albumin 3.9 - 4.9 g/dL 3.5 (L) Calcium 8.5 - 10.2 mg/dL 10.0 Bilirubin, Total 0.2 - 1.3 mg/dL 0.5 Alkaline Phosphatase 34 - 123 U/L 156 (H) AST 13 - 35 U/L 31 ALT 7 - 38 U/L 15 Glucose 74 - 99 mg/dL 132 (H) BUN 7 - 21 mg/dL 12 Creatinine 0.58 - 0.96 mg/dL 0.96 Sodium 136 - 144 mmol/L 140 Potassium 3.7 - 5.1 mmol/L 3.7 Chloride 97 - 105 mmol/L 108 (H) CO2 22 - 30 mmol/L 25 Anion Gap 9 - 18 mmol/L 7 (L) eGFR >=60 mL/min/1.73m 64 ASSESSMENT/PLAN: (C50.311, Z17.0) Malignant neoplasm of lower-inner quadrant of right breast of female, estrogen receptor positive (HCC) (primary encounter diagnosis) (C79.51) Bone metastases (HCC) (C78.01, C78.02) Malignant neoplasm metastatic to both lungs (HCC) (I42.7, T45.1X5A) Chemotherapy-induced cardiomyopathy (HCC) Assessment: -Originally pT2 pN0(sln) MX ER positive (9%, very weak) WV negative HER overexpressed stage IIA invasive ductal carcinoma the right breast. -Recurrent pT2(m) pN0 (none of 5 LNs) MX ER +(15%, weak intensity)/WV negative (0%) HER2 3+ invasive ductal carcinoma the right breast while on AI (anastrozole). Posterior margin positive--more than just focal according to pathologist. Pectoralis fascia rem she calixto. Staging workup revealed multiple lung metastases, not biopsy proven. -Kadcyla discontinued secondary to sudden worsening of neuropathy. -PET showed PD from lung metastases as well as one cutaneous metastasis. No bone metastases. Changed to Enhertu. -Tolerated Enhertu overall very well. -No symptoms of cardiomyopathy. Blood pressure remains well controlled. -Reviewed PET scan results with her again today. Discussed rationale for rotating therapy to capecitabine, tucatinib and Herceptin. Discussed potential side effects of that therapy. -I discussed the rationale, logistics, potential risks (including but not limited to cardiomyopathy, cytopenias, nausea vomiting, diarrhea, rash, hand-foot skin syndrome, stomatitis infectious complications and the small potential for as a consequence of severe toxicity/complications of therapy), benefits and alternatives, as well as the personnel involved in the administration of capecitabine, tucatinib and trastuzumab. I answered her questions in detail and she verbalized understanding and agreed with the recommended therapy. Please see the electronic consent document for details of doses and schedule. Plan: -Discontinue Enhertu. -Proceed with RT as planned--simulation 09/12. -Rotate therapy to capecitabine, tucatinib and Herceptin. -Start Herceptin this week. Continue until completes radiation then started capecitabine and Tucatinib several weeks post RT. -Continue metoprolol to 25 mg BID. -Continue Cozaar 100 mg daily. -Continue Lyrica 150 mg at HS. -Zometa every 3 months (originally started for hypercalcemia). -Echo due in ~2 months. -Continue follow-up with Dr. Galeano. -Previously stopped IBU for increase in serum Cr. -Continue potassium chloride 20 mEq daily. -US thyroid due . (G62.0, T45.1X5A) Chemotherapy-induced neuropathy (HCC) Assessment: -Kadcyla discontinued secondary to sudden worsening of neuropathy. -No subjective change. -Symptoms remain well controlled with Lyrica. Plan: -Continue Lyrica 150 mg twice daily. RUQ Diarrhea. -She did not previously have diarrhea with Enhertu administration. -During the last few weeks she had sharp right upper quadrant pain. -Reviewed chemistry panel. Alkaline phosphatase increased. No findings on PET scan to suggest bone metastases. Plan: -Ultrasound liver and gallbladder. Portions of this documentation were copied and pasted from previous office visit notes in order to provide a cohesive continuity of the history. The note has been reviewed and edited and updated as necessary. Rip Rivers DO documented in this encounter [facility] 08-30-2023 History of Presen t illness Narrative Patient is here for IVAD port flush/blood draw per Nursing [place] protocol. IVAD is located in right upper chest. Site cleansed with Chloraprep IVAD accessed with a #20 gauge 3/4 non-coring Gripper needle Flush with 5cc's Normal Saline. Blood Return: Good. 10 cc's blood aspirated and discarded. Blood drawn for CBC and CMP. Flushed with: 20 ml Normal Saline. Non-coring needle removed. Paper tape applied to puncture site. Site negative for redness, edema or tenderness. Patient tolerated procedure well. documented in this encounter [facility] 08-26-2023 Nurse Note Radiation Therapy - Nursing Note (Consult) PATIENT NAME: Renate Christiansen PATIENT August 26, 2023 [facility] FACILITY/LOCATION: [place] Chief Complaint: Lung mets Reason for visit: Consult. Referring physician: Internal provider Dr Rivers Subjective Data: no complaints Additional Data Do you want to see a Recreation Supervisor? No Are you interested in information about fertility? No Status: Post-menopausal Stress Scale: On a scale of 0 to 10, what number best describes how much distress you have experienced in the past week?(0 being no distress and 10 being extreme distress) 7 Social work notified: Pt denied need to see social work administrator at this time. SIGNED by: Dee Douglas RN documented in this encounter [facility] 08-26-2023 History of Presen t illness Narrative Radiation Oncology - New Patient/Consult Note PATIENT NAME: Renate Christiansen PATIENT REQUESTING PROVIDER: Dr. Rip Rivers DIAGNOSIS: Metastatic breast cancer with solitary lung metastasis. HPI: 67 year old female who presents with above diagnosis, for an opinion regarding the role of radiation therapy in the management of the patient's disease. Final recommendations will be communicated back to the requesting physician by way of the shared medical record, or letter to requesting physician via US mail. 67 year old woman who was initially diagnosed in 2017 with Stage IIA, T2N0, invasive ductal carcinoma of the right breast s/p right breast lumpectomy and sentinel node biopsy, s/p chemotherapy with AC followed by Taxol/Herceptin. It's ER positive (9%, very weak), WV negative (0%) and Her2/krista 3+. She then had radiation treatment to the right breast with 60 Gy in 30 fractions from 09/29/16 to 11/10/16. She had local recurrence in the right breast in 2019 and was treated with right modified radical mastectomy on 04/02/19. It was grade 3 invasive ductal carcinoma measuring 3.5 cm and five axillary nodes were negative. It was ER positive (15%, weak), WV negative and Her2 3+. CT chest on 04/19/19 showed bilateral lung nodules suspicious for metastatic disease. CT A/P and bone scan and MRI Brain were negative for metastasis. She was treated with Taxotere/Herceptin/Perjeta, and then Herceptin/Perjeta. It was discontinued 01/2021 for progressive disease. She then had Kadcyla 02/2021 through 07/2021. It was discontinued secondary to significant worsening of neuropathy. She is now on Enhertu. CT C/A/P on 01/26/23 showed, Continued increase in size of a solid subpleural 10 x 7 mm nodule in the left upper lobe (previously 8 x 6 mm) which is suspicious for neoplastic etiology. An additional indeterminate 3 mm RLL nodule is stable She underwent SBRT to the left upper lung lesion with 50Gy in 5 fractions from 02/21/23 - 03/02/23. Post-treatment CT chest on 08/04/23 showed stable left lung lesion but increasing right middle lobe nodule measuring 14 mm. PET/CT on 08/22/23 showed FDG avid right middle lobe nodule 1.6 cm with SUV max 11.4. 0.6 cm right lower lobe nodule with minimal uptake SUV max 1.8. There was no other suspicious hypermetabolic lesion. ALLERGIES Allergen Reactions Neratinib Hives Hives/itching/ nausea vomiting and diarrhea Amoxil [Amoxicillin] Rash Aspirin Other: See Comments Internal bleeding Cephalosporins Unknown Ciprocinonide Unknown Codeine Unknown Demerol [Meperidine* Unknown Erythromycin Unknown Latex Rash Sully [Hydrocodone-* Hives Nubain [Nalbuphine * Unknown Paxlovid [Nirmatrel* Intolerance Kidneys shut down Percocet [Oxycodone* Rash, Itching Prednisone Unknown per pt, this was given when had appendicitis and received multiple meds and she developed a rash and they had given her prednisone but at some point it was thought that it wasn't working and maybe it was part of the problem. Rd Other: See Comments Migraine headache Sulfa (Sulfonamide * Other: See Comments Fever/Gi upset/listless Current Outpatient Medications on File Prior to Visit Medication Sig metoprolol tartrate, short acting, (LOPRESSOR) 25 mg tablet Take 1 tablet by mouth twice daily promethazine (PHENERGAN) 25 mg tablet Take 1 tablet by mouth every 6 hours as needed. FOR NAUSEA potassium chloride (KLOR-CON) 20 mEq packet Take 20 mEq by mouth once daily. loratadine (CLARITIN) 10 mg tablet Take 10 mg by mouth once daily. lidocaine-prilocaine (EMLA) 2.5-2.5 % cream Apply to affected area as needed. iv contrast (will be provided with radiology test) CT ABD/PEL -Inject, intravenously, once for 1 dose.No IV access, insert saline lock prior to the beginning of sedation, infusion, injection of imaging exam. Discontinue saline lock post exam. If Pt. has a central line or IVAD, may access for administration according to line specific nursing protocol. Once exam is complete flush line and de-access according to line specific nursing protocol in the CT contrast administration guidelines link. enteric contrast (will be provided with radiology test) For CT ABD/PEL W IVCON Routine order Administer, As Directed One Time Only, via Oral, Rectal, both Oral and Rectal, Enteric Tube, Stoma or Indwelling Catheter, Enteric Contrast as designated per enteric contrast guidelines iv contrast (will be provided with radiology test) CT Chest W -Inject, intravenously, once for 1 dose.No IV access, insert saline lock prior to the beginning of sedation, infusion, injection of imaging exam. Discontinue saline lock post exam. If Pt. has a central line or IVAD, may access for administration according to line specific nursing protocol. Once exam is complete flush line and de-access according to line specific nursing protocol in the CT contrast administration guidelines link. losartan (COZAAR) 50 mg tablet Take 2 tablets by mouth once daily. ascorbic acid/bioflavonoids (MARY C ORAL) Take 500 mg by mouth once daily. loperamide HCl (IMODIUM) 2 mg tab Take 2 mg by mouth as needed. multivitamin tablet Take 1 tablet by mouth once daily. diphenhydrAMINE (BENADRYL) 25 mg tablet Take 25 mg by mouth twice daily as needed. Current Facility-Administered Medications on File Prior to Visit Medication perflutren lipid microspheres 1.3 mL in NaCl (PF) 0.9% 10 mL injection (DEFINITY) sodium chloride 0.9 % (flush) 10 mL (BD POSIFLUSH) perflutren lipid microspheres 1.3 mL in NaCl (PF) 0.9% 10 mL injection (DEFINITY) sodium chloride 0.9 % (flush) 10 mL (BD POSIFLUSH) perflutren lipid microspheres 1.3 mL in NaCl (PF) 0.9% 10 mL injection (DEFINITY) sodium chloride 0.9 % (flush) 10 mL (BD POSIFLUSH) PAST MEDICAL HISTORY Diagnosis Date Breast cancer (HCC) Breast cancer, right (HCC) 03/2019 Scoliosis Prior radiation therapy, collagen vascular disease, or inflammatory bowel disease: Yes, previous radiation treatment to the right breast and left lung as above. Any implanted or external electric devices? No status: Post-menopausal. PAST SURGICAL HISTORY Procedure Laterality Date APPENDECTOMY BREAST BIOPSY Right toxoplasmosis/cyst removal BREAST LUMPECTOMY HX 02/26/2016 right CHG DELIVERY x2 COLONOSCOPY 2013 X2 INSJ TUNNELED CTR VAD W/SUBQ PORT AGE 5 YR/> Left 05/07/2019 MAST MODF RAD W/AX LYMPH NOD W/WO PECT/YUAN MIN Right 04/02/2019 PAST SURGICAL HISTORY OF back surgery for scoliosis X2 PAST SURGICAL HISTORY OF 05/2014 pre cancerous mole removed from back TUBAL LIGATION HX FAMILY HISTORY Problem Relation Age of Onset Cancer Maternal Grandfather testicular Cancer Mother melanoma No Known Problems Father Cataract Brother Asthma Sister Social History Tobacco Use Smoking status: Never Smokeless tobacco: Never Vaping Use Vaping Use: Never used Substance Use Topics Alcohol use: No Drug use: No COMPLETE REVIEW OF SYSTEMS: GENERAL: feeling well without fatigue, no recent change in weight HEENT: denies [place], change in hearing or vision, no other ENT complaints NECK: denies swelling or pain in neck RESPIRATORY: no cough, no wheezing or shortness of breath CARDIOVASCULAR: no chest pain, no palpitations GI: normal appetite, tolerating PO well, BMs normal, and no abdominal pain : urination is normal MUSCULOSKELETAL: denies any painful or swollen joints, no muscle aches SKIN: no rash HEMATOLOGY/LYMPHOLOGY: negative for prolonged bleeding, no swollen lymph nodes NEURO: chronic numbness/tingling from chemotherapy. PHYSICAL EXAM: VS: BP 115/70 Pulse 62 Temp 36.7 C (98.1 F) (Temporal) Wt 86.2 kg (190 lb) SpO2 97% BMI 35.90 kg/m KPS: 100 General Appearance: Alert and oriented. No acute distress. HEENT: NCAT. Sclera anicteric. EOMI. Neck: Normal ROM. Chest: No respiratory distress. Musculoskeletal: Normal ROM in extremities. Neuro: Speech fluent. Gait normal. No focal deficits. Hematologic: No signs of active bleeding. RADIOLOGY/LABORATORY DATA: see HPI ASSESSMENT AND PLAN: 67 year old woman with metastatic breast cancer with solitary lung metastasis. Recent PET scan didn't show any other definite hypermetabolic metastasis. I recommend SBRT. Although she had previous RT to the right breast, it was seven years ago and risks of radiation treatment complications in the right chest wall is small. She expressed understandings and wishes to proceed with SBRT. I explained the rationale, benefits, alternative management options and potential complications of radiation treatment to the patient and she understands and agrees to proceed. It was explained and understood that other personnel such as radiation therapists, systems coordinator, and physicists will participate in planning and delivery of radiation treatment. Permanent tattoo amado will be placed to aid with positioning for daily treatment and the patient consented. Thank you very much for allowing us to participate in her care. Signed by: Meenu Garay MD cc: Williams Farrell [address] [place] [address] [place] [address] Rip Rivers [address] [facility] [id number] documented in this encounter [facility] 08-25-2023 Miscellaneous Notes Spoke with patient and scheduled as directed. Alexia Stephens Pt. Notified of PET results, call transferred to PSS to schedule appt. With Dr. Garay. Chrissie Elliott LPN Message left for patient to contact office. Per Dr. Rivers- PET scan showed only a spot on her right lung. Dr. Rivers has spoken to Dr. Garay about radiating this spot. Dr. Garay has agreed to see the patient tomorrow for an OV. Jazlyn Harding LPN documented in this encounter [facility] 08-22-2023 Note HNO ID: [id number] Author: ALBINA PRICE RT(R) Service: Nuclear Medicine Author Type: Technologist Type: Progress Notes Filed: 08/22/2023 09:23 Note Text: RADIOLOGY SERVICE PROGRESS NOTE SERVICE DATE: 08/22/2023 SERVICE TIME: 9:22 AM PATIENT IDENTITY VERIFICATION COMPLETED USING TWO (2) STANDARD IDENTIFIERS: Name and Date of confirmed by patient verbally FALL SCREENING: Has the patient had 2 falls in the last year or 1 fall with injury or currently using an Ambulatory Assistive Device (Walker, Cane, Wheelchair, Crutches, etc.)? Yes, Patient High Risk for Falls What interventions were put in place to prevent falls during this visit? Increased Observations by Caregivers PATIENT GENDER DATA: .female : No ALLERGIES: Reviewed and unchanged MEDICATIONS REVIEWED: No PATIENT RELEVANT IMPLANT DATA REVIEWED: Not Applicable PATIENT PRESENTS WITH AN IMPLANTABLE OR ATTACHED PUBLICATIONS EDITOR: No CREATININE: Creatinine Date Value Ref Range Status 08/10/2023 0.97 (H) 0.58 - 0.96 mg/dL Final 07/20/2023 0.93 0.58 - 0.96 mg/dL Final 06/08/2023 0.93 0.58 - 0.96 mg/dL Final Estimated Glomerular Filtration Rate Date Value Ref Range Status 08/10/2023 63 >=60 mL/min/1.73m? Final Comment: Estimated Glomerular Filtration Rate (eGFR) is calculated using the 2020 CKD-EPI creatinine equation. This equation utilizes serum creatinine, sex, and age as parameters. The creatinine assay has traceable calibration to isotope dilution-mass spectrometry. Refer to KDIGO guidelines for clinical interpretation. In patients with unstable renal function, e.g. those with acute kidney injury, the eGFR may not accurately reflect actual GFR. eGFR- Date Value Ref Range Status 07/20/2021 >60 Final P.O.C.T. RESULTS: N/A August 22, [address] PERFORMED: No IV SITE: Ambulatory: A peripheral IV was started in the Left antecubital site with a Angio cath: 24 gauge. POST EXAM PIV STATUS: Discontinued PROCEDURE TYPE: NM INJECT: PET/CT BODY SCAN. 13.6 mCi F18 FDG. No other medications given.. ADMINISTRATION TIME: 914 PATIENT DISCHARGED TO: Ambulatory patient, left NM department area. A Diagnostic radioactive procedure has taken place, with no further precautions necessary other than routine body substance precautions. More information regarding radiation safety can be found using this link: [email or web address] 20Diagnostic%20Nuclear%20Medici [email or web address] SIGNATURE: RT Varun(R) PATIENT NAME: Renate Christiansen DATE: August 22, 2023 TIME: 9:22 AM PAGER/CONTACT #: [facility] 08-22-2023 History of Presen t illness Narrative RADIOLOGY SERVICE PROGRESS NOTE SERVICE DATE: 08/22/2023 SERVICE TIME: 9:22 AM PATIENT IDENTITY VERIFICATION COMPLETED USING TWO (2) STANDARD IDENTIFIERS: Name and Date of confirmed by patient verbally FALL SCREENING: Has the patient had 2 falls in the last year or 1 fall with injury or currently using an Ambulatory Assistive Device (Walker, Cane, Wheelchair, Crutches, etc.)? Yes, Patient High Risk for Falls What interventions were put in place to prevent falls during this visit? Increased Observations by Caregivers PATIENT GENDER DATA: .female : No ALLERGIES: Reviewed and unchanged MEDICATIONS REVIEWED: No PATIENT RELEVANT IMPLANT DATA REVIEWED: Not Applicable PATIENT PRESENTS WITH AN IMPLANTABLE OR ATTACHED PUBLICATIONS EDITOR: No CREATININE: Creatinine Date Value Ref Range Status 08/10/2023 0.97 (H) 0.58 - 0.96 mg/dL Final 07/20/2023 0.93 0.58 - 0.96 mg/dL Final 06/08/2023 0.93 0.58 - 0.96 mg/dL Final Estimated Glomerular Filtration Rate Date Value Ref Range Status 08/10/2023 63 >=60 mL/min/1.73m Final Comment: Estimated Glomerular Filtration Rate (eGFR) is calculated using the 2020 CKD-EPI creatinine equation. This equation utilizes serum creatinine, sex, and age as parameters. The creatinine assay has traceable calibration to isotope dilution-mass spectrometry. Refer to KDIGO guidelines for clinical interpretation. In patients with unstable renal function, e.g. those with acute kidney injury, the eGFR may not accurately reflect actual GFR. eGFR- Date Value Ref Range Status 07/20/2021 >60 Final P.O.C.T. RESULTS: N/A August 22, [address] PERFORMED: No IV SITE: Ambulatory: A peripheral IV was started in the Left antecubital site with a Angio cath: 24 gauge. POST EXAM PIV STATUS: Discontinued PROCEDURE TYPE: NM INJECT: PET/CT BODY SCAN. 13.6 mCi F18 FDG. No other medications given.. ADMINISTRATION TIME: 15 PATIENT DISCHARGED TO: Ambulatory patient, left DC department area. A Diagnostic radioactive procedure has taken place, with no further precautions necessary other than routine body substance precautions. More information regarding radiation safety can be found using this link: [email or web address]% 20Nuclear%20Medicine%20Procedur [email or web address] SIGNATURE: RT Varun(R) PATIENT NAME: Renate Christiansen DATE: August 22, 2023 TIME: 9:22 AM PAGER/CONTACT #: documented in this encounter [facility] 08-17-2023 Discharge summary Note Date/Time August 16, 2023 10:31pm [facility] Medical Records Department [address] [facility] [place] [address] Emergency Department Summary 08/16/23 MR#: [id number] Acct: [id number] Name: RENATE CHRISTIANSEN Rep #:[id number] : 1955 67 From: Eze Mack MD PCP: Dr. Williams Farrell, Status:R EG ER Location: ED HPI HPI - GI History of Present Illness Chief Complaint: Diarrhea Informant: patient Narrative Narrative: Patient states she has metastatic breast cancer and she had her last chemotherapy treatment about 5 days ago. For the last 2 days she has been having frequent loose diarrhea no watery stools. Tonight she had bright red blood per rectum that seem to be floating on the surface after her bowel movement. She denies any rectal pain. Today she has had pain in her right lower quadrant. She notes that she has had prior appendectomy and right oophorectomy due to a cyst, those were remote. She has had no history of cancerin her abdomen, she has been undergoing treatment for breast cancer for about 8 years now. 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 She denies any recent fevers, but for the last day or 2 she does feel tired weak and fatigued. She states her back has been bothering her a little more than usual but she has a history of scoliosis and chronic pain from that she thinks that is related. [facility] Medical History Breast cancer metastasized to bone Breast cancer metastasized to lung Breast cancer, right breast Chemotherapy management, encounter for Elevated d-dimer Non-ischemic cardiomyopathy Obesity Home Medications naproxen sodium 220 mg capsule 220 mg PO Q8H PRN PRN Pain Or Fever 03/29/19 [History Last Taken Unknown] metoprolol tartrate 25 mg tablet 25 mg PO BID 01/22/20 [History Last Taken Unknown] pregabalin 150 mg capsule 150 mg PO BID 09/15/21 [History Last Taken Unknown] multivitamin 1 tab PO DAILY 11/26/22 [History Last Taken Unknown] losartan 100 mg tablet 100 mg PO QDAY HTN #90 tabs 01/20/23 [Rx Last Taken Unknown] diphenhydramine HCl 25 mg capsule (Benadryl) 25 mg PO QHS 02/16/23 [History Last Taken Unknown] acetaminophen 500 mg capsule 500 mg PO .COMPLEX 02/17/23 [History Last Taken Unknown] hydrocortisone 1 %-pramoxine 1 % rectal foam (Proctofoam HC) 1 applic [place]V QHS 1 week #10 grams 08/17/23 [Rx Last Taken Unknown] Allergy/AdvReac Type Severity Reaction Status Date / Time nirmatrelvir [From Paxlovid] Allergy Intermediate KIDNEY Verified 08/16/23 21:50 ritonavir [From Paxlovid] Allergy Intermediate KIDNEY Verified 08/16/23 21:50 acetaminophen [From Percocet] Allergy hives and Verified 08/16/23 21:50 nausea amoxicillin Allergy Fever and Verified 08/16/23 21:50 skin rash Cephalosporins Allergy Fever and Verified 08/16/23 21:50 skin rash ciprofloxacin [From Cipro] Allergy Fever and Verified 08/16/23 21:50 skin rash codeine Allergy Fever and Verified 08/16/23 21:50 skin rash erythromycin base Allergy Fever and Verified 08/16/23 21:50 skin rash hydrocodone [From Sully] Allergy hives and Verified 08/16/23 21:50 nausea latex Allergy Rash Verified 08/16/23 21:50 nalbuphine [From Nubain] Allergy Fever and Verified 08/16/23 21:50 skin rash oxycodone [From Percocet] Allergy hives and Verified 08/16/23 21:50 nausea prednisone Allergy hives Verified 08/16/23 21:50 with blood underneath Sulfa (Sulfonamide Allergy Fever and Verified 08/16/23 21:50 Antibiotics) skin rash aspirin AdvReac stomach Verified 08/16/23 21:50 bleed AND DARK STOOL Food Allergies: Uncoded AdvReac migraine Verified 08/16/23 21:50 meperidine [From Demerol] AdvReac Upset Verified 08/16/23 21:50 Stomach Family History Sister A-fib CAD (coronary artery disease) Grandmother A-fib Surgical History History of appendectomy History of lumpectomy of right breast History of right mastectomy Social History Smoking Status: Never smoker alcohol intake: never substance use type: does not use caffeine: No what type of physical activity do you participate in: none seatbelt use: always do you feel safe at home: Yes ROS ROS ED Constitutional Constitutional ED: Reports fatigue and weakness; Denies chills or fever(s) Eyes Eyes: Denies change in vision or diplopia ENT ENT ED: Denies rhinorrhea or sore throat Cardiovascular Cardiovascular: Denies chest pain, palpitations or syncope Respiratory/Chest Respiratory/Chest: Denies cough or dyspnea Gastrointestinal Gastrointestinal: Reports abdominal pain, diarrhea and hematochezia; Denies constipation, hemorrhoids, melena, nausea or vomiting Genitourinary Genitourinary ED: Denies dysuria, hematuria or urinary frequency Musculoskeletal Musculoskeletal: Reports back pain; Denies neck pain Integumentary Denies abscess or rash Neurologic Neurologic: Denies headache(s), paresthesias or weakness Psychiatric Psychiatric: Denies anxiety or suicidal thoughts EXAM Physical Exam Const Vital Signs: 08/16/23 21:50 08/16/23 23:48 08/17/23 00:26 Temperature 96 F L 97.7 F L Temperature Source Temporal Temporal Pulse Rate 66 65 65 Respiratory Rate 18 19 H 17 Blood Pressure 135/81 H 129/63 H 134/64 H Blood Pressure Mean 99 85 87 Pulse Ox 97 93 93 Oxygen Delivery Method Room Air Room Air Room Air Positive well nourished and well developed General Appearance ED: well developed and NAD HEENT Reports moist mucous membranes normocephalic and atraumatic Eyes PERRL and EOMs intact bilaterally Neck full ROM and supple Resp normal respiratory effort and clear to auscultation bilaterally Cardio regular rate, regular rhythm and no murmurs GI non-distended GI Narrative: Tender throughout right mid abdomen and right lower quadrant, with the point of maximal tenderness more distal/caudal. No guarding or rebound tenderness. Negative Iz[place]irre. Normal inspection. Normal bowel sounds and no distention. On rectal there is a trace amount of blood on [place] only, but no pooling or activebleeding. There is a very slight amount of tenderness on [place] to the patient's right approximately 3:00 area, without any palpable abscess, patient states feels like there is a lesion or something there. There is no fissure and no mass. Good tone. Auscultation: normoactive bowel sounds Palpation: soft Back/Spine no CVA tenderness Back/Spine Narrative: Well-healed midline lumbar surgical scar General Back: other FROM Extremity normal to inspection General Extremety ED: Negative for edema, pulses abnormal or tenderness General Extremity: Negative for edema or pulses abnormal Neuro oriented x3, CN's II-XII intact bilaterally and no sensory deficits noted Sensorium / Orientation: awake and alert Motor Exam: strength 5/5 throughout Skin no rashes or lesions noted and no wounds MDM MDM MDM Narrative Medical decision making narrative: Labs obtained and noted, patient was treated with IV fluids, analgesics, and we did a CT of her abdomen/pelvis mainly because of the abdominal pain, not necessarily expecting to find a source of the bleeding. I reviewed the images and the report, which I agree with. I reviewed all 9 lines of the summary with the patient, she knew about many of them already such as the hiatal hernia, fatty liver, metastatic cancer. The periumbilical hernia is not likely causing any of her current symptoms and I think is an incidental finding. At this time the differential includes internal hemorrhoids as well as external hemorrhoids, intracolonic mass, other causes of lower GI bleeding including diverticulosis. At this time she is not having any active bleeding or life-threatening blood loss, her hemoglobin is 12.0 the last set was measured it was 12.7. Her vital signs are normal. She does not have an elevated BUN to suggest that upper GI source. At this time I think it would be reasonable given my rectal exam to treat her empirically for hemorrhoids as she follows up soon as possible with her doctor as she may or may not need to be referred for sigmoidoscopy/colonoscopy. She is comfortable with that overall plan. Lab Data Attestation: I reviewed the patient's lab results. Labs: Laboratory Results - last 24 hr 08/16/23 23:50 WBC 3.8 L RBC 3.39 L Hgb 12.0 Hct 36.6 L MCV 108.0 H MCH 35.4 H MCHC 32.8 RDW Std Deviation 57.0 H RDW Coeff of Martin 14.5 Plt Count 140 L MPV 9.9 Immature Gran % (Auto) 0.300 Neut % (Auto) 65.5 Lymph % (Auto) 21.9 Cotton % (Auto) 7.5 Eos % (Auto) 4.5 Baso % (Auto) 0.3 Absolute Neuts (auto) 2.5 Absolute Lymphs (auto) 0.82 L Nucleated RBC % 0 Sodium 143 Potassium 3.7 Chloride 110 H Carbon Dioxide 29.0 Anion Gap 4 L BUN 16 Creatinine 0.96 Estim Creat Clear Calc 54.98 Est GFR (MDRD) Af Amer 74 Est GFR (MDRD) Non-Af 61 BUN/Creatinine Ratio 16.7 Glucose 104 Calcium 9.0 Total Bilirubin 0.60 AST 31 ALT 25 Alkaline Phosphatase 133 H Total Protein 5.6 L Albumin 2.9 L Globulin 2.7 Albumin/Globulin Ratio 1.1 Radiography Diagnostic Testing: Clinical Impression(s) from Imaging Studies Abdomen/Pelvis CT 08/16/23 22:50 IMPRESSION: 1. Lobulated nodule measuring 1.5 x 1.2 cm transverse dimension in the right middle lobe. Nodule measuring 6 mm laterally in the right lower lobe. Findings consistent with known metastatic disease. 2. Calcified leiomyomas in the uterus. 3. Status post right mastectomy. 4. Fatty liver. 5. Splenomegaly. 6. Small fat-containing paraumbilical hernia. No bowel involvement. 7. Scattered diverticula without diverticulitis. 8. No acute abdominal pelvic abnormality. 9. Large hiatal hernia. Electronically Signed: Albina Rogel MD at 0:30 EDT , Discharge Plan Triage Chief Complaint: Diarrhea Other Complaint: GI Bleed ED Provider: Eze Mack Dx/Rx/DC Orders Clinical Impression: Abdominal pain, RLQ, Rectal bleeding Instructions: Rectal Bleeding Tx Prescriptions: New Proctofoam HC 1-1 % foam 1 applic WV QHS 7 Days Qty: 10 0RF No Action metoprolol tartrate 25 mg tablet 25 mg PO BID pregabalin 150 mg capsule 150 mg PO BID naproxen sodium 220 MG capsule 220 mg PO Q8H PRN PRN (Reason: Pain Or Fever) multivitamin Tablet 1 tab PO DAILY diphenhydramine HCl [Benadryl] 25 mg capsule 25 mg PO QHS acetaminophen 500 mg capsule 500 mg PO .COMPLEX Rx Instructions: 500 mg orally; pt takes one tab in the morning and two tabs (1000mg) at night losartan 100 mg tablet 100 mg PO QDAY Qty: 90 3RF Primary Care Provider: Williams Farrell Referrals: Williams Farrell, DO [Primary Care Provider] - As soon as possible Disposition Disposition: Home, Self Care What to do if you have Problems For any increased pain, shortness of breath, bleeding, nausea or vomiting, chestpain, or any unexpected problems, contact your Primary Care Provider. Call [facility] ([phone]) or report to the closest Emergency Room. Call 911 if necessary. 08/17/23 0051 <Electronically signed by Eze Mack MD> Cosigner Signature (if applicable): CC: Dr. Williams Farrell DO ~ Signed [facility] Work Phone: [phone] 184-695003-07-2024 History of Present illness Narrative* Rosemary Romero RN - 08/11/2023 1:00 PM EST Assessment unchanged from 08/10/[address] Rivers [facility] History of Present illness Narrative* Meenu Garay MD - 08/10/2023 3:39 PM EST AMBULATORY TELEPHONE VISIT Renate Christiansen has consented to this telephone encounter. Persons Present: patient Chief Complaint/Reason: Four week follow-up after radiation treatment. HPI: Metastatic breast cancer on [place] with solitary progression in the left upper lung nodule s/p radiation treatment finished on 03/02/23. She is doing well without any specific new complaints. She reports good energy. CT chest on 08/03/23showed that the treated left upper lung nodule is stable at 6 mm. There was a right middle lung nodule increased in size slightly from 12 mm to 14 mm. Data Reviewed: Most recent imaging. Assessment: Good durable response of the treated lung lesion. However, there is progression of another lung nodule. Plan: She is scheduled to have PET scan on 08/22/23. If it shows no other progressive disease, she may be a candidate for SBRT. I will follow-up with the PET scan results. Total Time Spent: 5 minutes Meenu Garay MD [facility] History of Present illness Narrative* Rip Rivers DO - 08/10/2023 10:12 AM EST Diagnosis: 1) Metastatic recurrence of ER positive, W[place] negative, HER2 positive breast cancer. 2) Cardiomyopathy. HPI: The patient is a 67 year old female who discovered a lump on the lower inner portion of her right breast in the fall of 2015. She was seen at [facility] and underwent a right sided core biopsy on 02/16/2016 by interventional radiology. The tissue specimen demonstrated invasive ductal carcinoma, Yohan grade 2. ERpositive (90%, very weak) and WV negative (0%). HER-2 was quantified at 3+. She underwent a right sided lumpectomy and right axillary sentinel lymph node dissection on 02/26/2016. Final pathology demonstrated that within the lumpectomy specimen there was a 2.5 cm single focus ofinvasive carcinoma. DCIS was present comprising about 10% [...] 3) Nerlyx-stopped d/t diarrhea. Last dose of neratinib . I'm never taking that again. Seen here in early March for complaint of right breast fullness and tenderness. Diagnostic mammogram done on 03/07/2019 did not demonstrate a mass within the breast however on ultrasound there was a0.8 cm x 0.6 cm x 0.9 cm lobulated mass with an indistinct margin in the right breast at 1:00 anterior depth 6 cm in the nipple. It was lobulated and hypoechoic with internal echoes. This corresponded to the tender area. There was also a 1.2 x 0.9 x 2 cm lobulated mass with a circumscribed margin in the right breast at 2:00 anterior depth 7 cm from the nipple. It also was hypoechoic with internalechoes. And it also was tender on exam. Patient next underwent ultrasound-guided right breast needle core biopsy 2 on 03/22/2019. Pathology: MICROSCOPIC DIAGNOSIS A. Right breast at 1 o clock, core biopsy: Invasive ductal carcinoma with the following characteristics: Maximal length - 10 mm Nuclear grade - 3/3 Other findings - ductal carcinoma in situ, nuclear 3/3 with focal comedo necrosis. B. Right breast at 2 o clock, core biopsy: Invasive ductal carcinoma with the following characteristics: Maximal length - 1.2 mm Nuclear grade - 2-3/3 ANTIBODY / CLONE RESULT Block A P53 (DO-7) positive, >90% Ki-67 (30-9) positive, 12% CK8 ([id number]) positive CK5-6 (D5 & 1684) negative Calponin-1 (TR912Z) negative P40 (BC28) negative E-Cad (ECH-6) positive MORPHOMETRIC ANALYSIS ER (clone 6F11) 15%, weak intensity WV (clone 16/1E2) 0% Her-2Neu (clone CB11) 3+ Block B Calponin-1 (RU906X) negative P40 (BC28) negative CK8 (16rsnrN30) positive INTERPRETATION: A. Right breast 1 o clock, biopsy: Invasive ductal carcinoma, grade 3/3. Positive for estrogen receptors (favorable prognostic indicator). Negative for progesterone receptors (unfavorable prognostic indicator). Positive for overexpression of VDX8hnx. B. Right breast 2 o clock, biopsy: Invasive ductal carcinoma, grade 2-3/3. Then underwent right breast modified mastectomy along with axillary lymph node dissection on 04/02/2019. Pathology: MICROSCOPIC DIAGNOSIS Right breast, modified radical mastectomy: Invasive ductal carcinoma x2. Ductal carcinoma in situ. Five out of five lymph nodes, negative for metastatic carcinoma. Hyalinized fibroadenomas x2. See cancer summary below. SJ:breann 04/05/19 INVASIVE BREAST CANCER SUMMARY: Specimen - total breast (including nipple and skin). Procedure - total mastectomy (including nipple and skin). Lymph node sampling - axillary dissection Specimen integrity - single, intact specimen Specimen laterality - right Tumor site - inner quadrant Tumor size: size of largest invasive carcinoma - 3.5 x 1.5 x 1.5 cm Tumor focality - two foci of invasive carcinoma Size of individual foci - 3.5 x 1.5 x 1.5 cm and 2 x 2 x 1 cm Macroscopic and Microscopic extent of tumor: Skin - invasive carcinoma does not invade into the dermis or epidermis. Nipple - DCIS does not involve nipple epidermis. Skeletal muscle - Skeletal muscle is present and is free of carcinoma. Ductal carcinoma in situ (DCIS) - present Extensive intraductal component (EIC) - negative Estimated size (extent) of DCIS - DCIS is present in the area of invasive carcinoma and comprise about 5% of the total tumor volume. Number of blocks with DCIS - 7 Number of blocks examined (breast tissue) - 16 Architectural patterns - cribriform and comedo Nuclear grade - grade 3 (high) Necrosis - present, central (expansive comedo necrosis) Lobular carcinoma in situ (LCIS) - not identified Histologic type of invasive carcinoma - invasive ductal carcinoma (no special type) Histologic Grade (Sorento grade): Glandular/tubular differentiation - score 3 Nuclear pleomorphism - score 3 Mitotic count - score 2 Overall grade - 3 (score of 8) Both tumor show similar morphologic features. Margins - larger focus of invasive carcinoma is present at the closest posterior margin of the specimen. - smaller focus of invasive carcinoma is 1.7 cm away from closest superior margin. - Margins are free of ductal carcinoma in situ. Treatment effect: Response to presurgical (neoadjuvant) therapy - no known presurgical therapy. Lymph-Vascular invasion - not identified Dermal lymph-vascular invasion - not identified Lymph nodes: Number of sentinel lymph nodes examined - 0 Total number of lymph nodes examined (sentinel and nonsentinel) - 5 Number of lymph nodes with macrometastases, micrometastases and isolated tumor cells - 0 Distant metastasis - not applicable Additional pathologic findings - hyalinized fibroadenomas x2 with focal calcifications. See comment. - Dense fibrosis and lobular involution. Ancillary studies - previously performed on section of tumor ([id number] / [id number]). ER - positive (15%, weak intensity) WV - negative (0%) Her2 krista - positive (3+) Microcalcifications - present in both invasive carcinoma and non-neoplastic tissue. Clinical history - Please make reference to previous specimen ([id number]) right breast at 1 o clock and right breast at 2 o clock core biopsies with diagnosis of invasive ductal carcinoma. PATHOLOGIC STAGE: pT2(m) pN0 Mx Evidently the larger focus of cancer was down to the chest wall muscle. Other significant past medical history was asymptomatic decline in ejection fraction 1 receiving Herceptin. Serial echocardiograms--March 2016 at that time he demonstrated ejection fraction of 72%.Another echocardiogram in September 2016 demonstrated ejection fraction of 55%. In November 2016 was 50% and in May 2017 was 45% with mild global hypokinesis. managed with beta-ruth and ARB. Most recent echocardiogram from May 2018 revealed normal left ventricular size with systolic function at lower limits of normal estimated at 53%. The global longitudinal strain was -19.4% (normal) cis. Stage I diastolic dysfunction was observed. Pulmonary artery pressure was 27 mmHg. Had staging CTs scans that suggested lung metastases. Not able to biopsy. Previous therapy: 1) Taxotere/Herceptin/Perjeta. 2) Herceptin/Perjeta. Discontinued 01/2021 for progressive disease. 3) Kadcyla. 02/2021 through 07/2021. Discontinued secondary to significant worsening of neuropathy. 4) SBRT DYLAN metastasis completed 03/02/2023. Current therapy: 1) Enhertu. Interim history: She offers no complaints today. No subjective change. All below reviewed again today. Dyspnea stable. Continues Claritin daily. No cough. Subcutaneous metastasis on the anterior lower chest wall remains no longer palpable to her. 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 Symptoms remain well controlled and stable. PMH, medications and allergies personally reviewed by me today. Any changes documented in appropriate section. ROS: Constitutional: Denies episodes of fever and night sweats. Not significantly fatigued. Normal appetite. Neuro: Denies [place], vertigo, dizziness and imbalance. HEENT: No recent change in voice, vision or hearing. Resp: See above. CVS: See above. GI: Denies dysgeusia. Denies symptoms of stomatitis. Denies dysphagia and odynophagia. Denies abdominal pain. : Denies dysuria or gross hematuria. No symptoms of bladder outlet obstruction. Endo: Denies hot flashes. Denies polyuria and polydipsia. Denies heat and cold intolerance. Musculoskeletal: Denies bone, back, joint and muscular pain. Derm: Denies rash. Denies jaundice and diffuse pruritis. Heme: Denies unusual bleeding and unexplained bruising. Psych: Normal mood. PHYSICAL EXAM: Vitals: Blood pressure 127/76, pulse 64, temperature 36.5 C (97.7 F), temperature source Temporal, weight 86.2 kg (190 lb), SpO2 98%. Well-appearing and in no acute distress. EYES: Sclerae are anicteric bilaterally. LYMPHATIC: There is no palpable cervical, supraclavicular adenopathy. RESPIRATORY: Normal vesicular breath sounds in all barnes. No rales, wheezes or rhonchi. CARDIOVASCULAR: Rhythm is regular. BREAST: chaperoned. Right mastectomy site without chest wall mass or nodule. ABDOMEN: The abdomen is nondistended. Extremities: No swelling or edema. SKIN: Continued resolution of subcutaneous metastasis near Xyvoid. LABS: ASSESSMENT/PLAN: (C50.311, Z17.0) Malignant neoplasm of lower-inner quadrant of right breast of female, estrogen receptor positive (HCC) (primary encounter diagnosis) (C79.51) Bone metastases (HCC) (C78.01, C78.02) Malignant neoplasm metastatic to both lungs (HCC) (I42.7, T45.1X5A) Chemotherapy-induced cardiomyopathy (HCC) Assessment: -Originally pT2 pN0(sln) MX ER positive (9%, very weak) WV negative HER overexpressed stage IIA invasive ductal carcinoma the right breast. -Recurrent pT2(m) pN0 (none of 5 LNs) MX ER +(15%, weak intensity)/WV negative (0%) HER2 3+ invasive ductal carcinoma the right breast while on AI (anastrozole). Posterior margin positive--more thanjust focal according to pathologist. Pectoralis fascia rem she calixto. Staging workup revealed multiple lung metastases, not biopsy proven. -Kadcyla discontinued secondary to sudden worsening of neuropathy. -PET showed PD from lung metastases as well as one cutaneous metastasis. No bone metastases. Changed to Enhertu. -Tolerating Enhertu overall very well. -No symptoms of cardiomyopathy. Blood pressure remains well controlled. -I personally reviewed CT images of CT chest 06/01/2023 and 08/03/2023 and independently verified and agreed with the radiologist's findings. -Reviewed recent CT chest. Increase in size of right middle lobe nodule. She has been offered SBRT.Discussed obtaining PET scan and if no other concerning active disease then agree with SBRT. Following that would have to change systemic therapy to capecitabine, Tucatinib and Herceptin. Discussed potential side effects of that therapy. Plan: -Continue Enhertu for now. -Continue metoprolol to 25 mg BID. -Continue Cozaar 100 mg daily. -Continue Lyrica 150 mg at HS. -Zometa every 3 months (originally started for hypercalcemia). -CT C/A/P after 3 cycles. Consider RT to right lung metastasis if progresses. -Echo due in 2-3 months. -Continue follow-up with Dr. Galeano. -Previously stopped IBU for increase in serum Cr. -Continue potassium chloride 20 mEq daily. -US thyroid due next fall. -PET scan. (G62.0, T45.1X5A) Chemotherapy-induced neuropathy (HCC) Assessment: -Kadcyla recently discontinued secondary to sudden worsening of neuropathy. -No subjective change. Symptoms well controlled with Lyrica. Plan: -Continue Lyrica 150 mg twice daily. Portions of this documentation were copied and pasted from previous office visit notes in order to provide a cohesive continuity of the history. The note has been reviewed and edited and updated as necessary. Rip Rivers DO documented in this encounterWestern [facility] History of Present illness Narrative* Adriana Thomas RT(R) - 08/03/2023 9:20 AM EST Radiology Service Progress Note PATIENT NAME: Renate Christiansen DATE OF SERVICE: August 03, 2023 TIME: 3:30 PM PATIENT IDENTITY VERIFICATION COMPLETED USING TWO (2) IDENTIFIERS: Name and Date of confirmedby patient verbally. FALL SCREENING: Has the patient had 2 falls in the last year or 1 fall with injury or currently using an Ambulatory Assistive Device (Walker, Cane, Wheelchair, Crutches, etc.)? No PATIENT GENDER DATA: Female. status: : No status: NO. PATIENT RELEVANT IMPLANT DATA REVIEWED: Yes PATIENT PRESENTS WITH AN IMPLANTABLE OR ATTACHED PUBLICATIONS EDITOR: No RADIOLOGY DEPARTMENT: CT; Exam(s) Completed: Chest PERIPHERAL IV DATA: Not applicable SIGNED BY: RT Ashley(R) August 03, 2023 3:30 PM documented in this encounterWestern [facility]02-14-2024 History of Present illness Narrative* Caity Cote APRN.TERRITORY DEVELOPMENT MANAGER - 07/20/2023 10:42 AM EST Chief Complaint Patient presents with: Established Patient HPI: Renate Christiansen is a 67 year old female who presents here today for evaluation for treatment tomorrow. Per Dr. Rivers's previous note: H/o discovered a lump on the lower inner portion of her right breast in the fall of 2015. She was seen at [facility] and underwent a right sided core biopsy on 02/16/2016 by interventional radiology. The tissue specimen demonstrated invasive ductal carcinoma, Yohan grade 2. ERpositive (90%, very weak) and WV negative (0%). HER-2 was quantified at 3+. She underwent a right sided lumpectomy and right axillary sentinel lymph node dissection on 02/26/2016. Final pathology demonstrated that within the lumpectomy specimen there was a 2.5 cm single focus ofinvasive carcinoma. DCIS was present comprising about 10% [...] 3) Nerlyx-stopped d/t diarrhea. Last dose of neratinib . I'm never taking that again. Seen here in early March for complaint of right breast fullness and tenderness. Diagnostic mammogram done on 03/07/2019 did not demonstrate a mass within the breast however on ultrasound there was a0.8 cm x 0.6 cm x 0.9 cm lobulated mass with an indistinct margin in the right breast at 1:00 anterior depth 6 cm in the nipple. It was lobulated and hypoechoic with internal echoes. This corresponded to the tender area. There was also a 1.2 x 0.9 x 2 cm lobulated mass with a circumscribed margin in the right breast at 2:00 anterior depth 7 cm from the nipple. It also was hypoechoic with internalechoes. And it also was tender on exam. Patient next underwent ultrasound-guided right breast needle core biopsy 2 on 03/22/2019. Pathology: MICROSCOPIC DIAGNOSIS A. Right breast at 1 o clock, core biopsy: Invasive ductal carcinoma with the following characteristics: Maximal length - 10 mm Nuclear grade - 3/3 Other findings - ductal carcinoma in situ, nuclear 3/3 with focal comedo necrosis. B. Right breast at 2 o clock, core biopsy: Invasive ductal carcinoma with the following characteristics: Maximal length - 1.2 mm Nuclear grade - 2-3/3 ANTIBODY / CLONE RESULT Block A P53 (DO-7) positive, >90% Ki-67 (30-9) positive, 12% CK8 (47fvanN03) positive CK5-6 (D5 & 1684) negative Calponin-1 (HW322J) negative P40 (BC28) negative E-Cad (ECH-6) positive MORPHOMETRIC ANALYSIS ER (clone 6F11) 15%, weak intensity WV (clone 16/1E2) 0% Her-2Neu (clone CB11) 3+ Block B Calponin-1 ([id number]) negative P40 (BC28) negative CK8 (61merzC78) positive INTERPRETATION: A. Right breast 1 o clock, biopsy: Invasive ductal carcinoma, grade 3/3. Positive for estrogen receptors (favorable prognostic indicator). Negative for progesterone receptors (unfavorable prognostic indicator). Positive for overexpression of [id number]. B. Right breast 2 o clock, biopsy: Invasive ductal carcinoma, grade 2-3/3. Then underwent right breast modified mastectomy along with axillary lymph node dissection on 04/02/2019. Pathology: MICROSCOPIC DIAGNOSIS Right breast, modified radical mastectomy: Invasive ductal carcinoma x2. Ductal carcinoma in situ. Five out of five lymph nodes, negative for metastatic carcinoma. Hyalinized fibroadenomas x2. See cancer summary below. SJ:breann 04/05/19 INVASIVE BREAST CANCER SUMMARY: Specimen - total breast (including nipple and skin). Procedure - total mastectomy (including nipple and skin). Lymph node sampling - axillary dissection Specimen integrity - single, intact specimen Specimen laterality - right Tumor site - inner quadrant Tumor size: size of largest invasive carcinoma - 3.5 x 1.5 x 1.5 cm Tumor focality - two foci of invasive carcinoma Size of individual foci - 3.5 x 1.5 x 1.5 cm and 2 x 2 x 1 cm Macroscopic and Microscopic extent of tumor: Skin - invasive carcinoma does not invade into the dermis or epidermis. Nipple - DCIS does not involve nipple epidermis. Skeletal muscle - Skeletal muscle is present and is free of carcinoma. Ductal carcinoma in situ (DCIS) - present Extensive intraductal component (EIC) - negative Estimated size (extent) of DCIS - DCIS is present in the area of invasive carcinoma and comprise about 5% of the total tumor volume. Number of blocks with DCIS - 7 Number of blocks examined (breast tissue) - 16 Architectural patterns - cribriform and comedo Nuclear grade - grade 3 (high) Necrosis - present, central (expansive comedo necrosis) Lobular carcinoma in situ (LCIS) - not identified Histologic type of invasive carcinoma - invasive ductal carcinoma (no special type) Histologic Grade (Sorento grade): Glandular/tubular differentiation - score 3 Nuclear pleomorphism - score 3 Mitotic count - score 2 Overall grade - 3 (score of 8) Both tumor show similar morphologic features. Margins - larger focus of invasive carcinoma is present at the closest posterior margin of the specimen. - smaller focus of invasive carcinoma is 1.7 cm away from closest superior margin. - Margins are free of ductal carcinoma in situ. Treatment effect: Response to presurgical (neoadjuvant) therapy - no known presurgical therapy. Lymph-Vascular invasion - not identified Dermal lymph-vascular invasion - not identified Lymph nodes: Number of sentinel lymph nodes examined - 0 Total number of lymph nodes examined (sentinel and nonsentinel) - 5 Number of lymph nodes with macrometastases, micrometastases and isolated tumor cells - 0 Distant metastasis - not applicable Additional pathologic findings - hyalinized fibroadenomas x2 with focal calcifications. See comment. - Dense fibrosis and lobular involution. Ancillary studies - previously performed on section of tumor ([id number] / [id number]). ER - positive (15%, weak intensity) WV - negative (0%) Her2 krista - positive (3+) Microcalcifications - present in both invasive carcinoma and non-neoplastic tissue. Clinical history - Please make reference to previous specimen ([id number]) right breast at 1 o clock and right breast at 2 o clock core biopsies with diagnosis of invasive ductal carcinoma. PATHOLOGIC STAGE: pT2(m) pN0 Mx Evidently the larger focus of cancer was down to the chest wall muscle. Other significant past medical history was asymptomatic decline in ejection fraction 1 receiving Herceptin. Serial echocardiograms--March 2016 at that time he demonstrated ejection fraction of 72%.Another echocardiogram in September 2016 demonstrated ejection fraction of 55%. In November 2016 was 50% and in May 2017 was 45% with mild global hypokinesis. managed with beta-ruth and ARB. Most recent echocardiogram from May 2018 revealed normal left ventricular size with systolic function at lower limits of normal estimated at 53%. The global longitudinal strain was -19.4% (normal) cis. Stage I diastolic dysfunction was observed. Pulmonary artery pressure was 27 mmHg. Had staging CTs scans that suggested lung metastases. Not able to biopsy. Previous therapy: 1) Taxotere/Herceptin/Perjeta. 2) Herceptin/Perjeta. Discontinued 01/2021 for progressive disease. 3) Kadcyla. 02/2021 through 07/2021. Discontinued secondary to significant worsening of neuropathy. 4) SBRT DYLAN metastasis completed 03/02/2023. Current therapy: 1) Enhertu. Recently had covid. Recovered at home. Appetite:I'm sick of meat. Wt. down 7# Energy level:It's better but not great. Denies fevers since covid. +covid . Mouth:denies sores Resp:denies cough or sob Cardiac:denies chest pain/palpitations GI:denies abd pain, n/v, moving bowels regularly :denies dysuria/hematuria Extrem:denies pain Neuro:denies symptoms of neuropathy Skin:denies rashes Heme:denies bleeding The ROS is otherwise negative. Past medical history, appointments, medications, allergies reviewed. No changes. EXAM: BP 112/63 Pulse 61 Temp 36.2 C (97.2 F) (Oral) Wt 84.4 kg (186 lb) SpO2 97% BMI 35.14 kg/m APPEARANCE Well appearing, alert, in no acute distress, well-hydrated, well nourished. HEART RRR with normal S1 and S2, no murmurs LUNG clear to auscultation LYMPH NODES No cervical lymphadenopathy, No supraclavicular lymphadenopathy, and No axillary lymphadenopathy. ABDOMEN bowel sounds normoactive, soft, non-tender EXTREMITIES No edema NEURO Awake, alert and oriented x 3, using a cane, and No involuntary motions. SKIN Skin color, texture, turgor normal, no suspicious rashes or lesions LABS: Component Latest Ref Rng & Units 05/18/2023 06/08/2023 07/20/2023 WBC 3.70 - 11.00 k/uL 3.55 (L) 2.98 (L) 4.18 RBC 3.90 - 5.20 m/uL 3.57 (L) 3.33 (L) 3.73 (L) Hemoglobin 11.5 - 15.5 g/dL 12.1 11.5 13.4 Hematocrit 36.0 - 46.0 % 36.6 34.4 (L) 40.1 MCV 80.0 - 100.0 fL 102.5 (H) 103.3 (H) 107.5 (H) MCH 26.0 - 34.0 pg 33.9 34.5 (H) 35.9 (H) MCHC 30.5 - 36.0 g/dL 33.1 33.4 33.4 RDW-CV 11.5 - 15.0 % 15.9 (H) 17.0 (H) 15.3 (H) Platelet Count 150 - 400 k/uL 183 173 143 (L) MPV 9.0 - 12.7 fL 9.3 9.3 10.1 Neut% % 48.5 48.7 56.6 Abs Neut (ANC) 1.45 - 7.50 k/uL 1.72 1.45 2.37 Lymph% % 27.6 28.5 25.4 Abs Lymph 1.00 - 4.00 k/uL 0.98 (L) 0.85 (L) 1.06 Cotton% % 15.5 13.1 9.6 Abs Cotton <0.87 k/uL 0.55 0.39 0.40 Eosin% % 7.3 8.7 7.4 Abs Eosin <0.46 k/uL 0.26 0.26 0.31 Baso% % 1.1 0.7 1.0 Abs Baso <0.11 k/uL 0.04 <0.03 0.04 Immature Gran % % 0.0 0.3 0.0 IMMATURE GRANS (ABS) <0.10 k/uL <0.03 <0.03 <0.03 NRBC /100 WBC 0.0 0.0 0.0 Absolute nRBC <0.01 k/uL <0.01 <0.01 <0.01 DTYPE Auto Auto Auto Component Latest Ref Rng & Units 05/18/2023 06/08/2023 07/20/2023 Protein, Total 6.3 - 8.0 g/dL 5.8 (L) 5.5 (L) 5.8 (L) Albumin 3.9 - 4.9 g/dL 3.7 (L) 3.5 (L) 3.6 (L) Calcium 8.5 - 10.2 mg/dL 9.6 9.4 9.7 Bilirubin, Total 0.2 - 1.3 mg/dL 0.5 0.6 0.6 Alkaline Phosphatase 34 - 123 U/L 148 (H) 150 (H) 179 (H) AST 13 - 35 U/L 36 (H) 34 38 (H) ALT 7 - 38 U/L 18 20 21 Glucose 74 - 99 mg/dL 118 (H) 110 (H) 132 (H) BUN 7 - 21 mg/dL 10 8 13 Creatinine 0.58 - 0.96 mg/dL 1.14 (H) 0.93 0.93 Sodium 136 - 144 mmol/L 142 140 141 Potassium 3.7 - 5.1 mmol/L 3.9 3.8 3.6 (L) Chloride 97 - 105 mmol/L 106 (H) 105 107 (H) CO2 22 - 30 mmol/L 27 27 27 Anion Gap 9 - 18 mmol/L 9 8 (L) 7 (L) eGFR >=60 mL/min/1.73m 52 (L) 67 67 ASSESSMENT/PLAN: 1. Malignant neoplasm of lower-inner quadrant of right breast of female, estrogen receptor positive(HCC) (HCC) - ICD9: 174.3, V86.0, ICD10: C50.311, Z17.0 (primary diagnosis) 2. Malignant neoplasm metastatic to both lungs (HCC) - ICD9: 197.0, ICD10: C78.01, C78.02 3. Malignant neoplasm metastatic to bone (HCC) - ICD9: 198.5, ICD10: C79.51 - Overall tolerating enhertu well. - Recovered from covid. - Reviewed labs with pt. - Follow up with cardiology as scheduled. - ECHO every 2-3 months. - Continue current medications. - CT chest as scheduled. - Follow up with Dr. Jarrod as scheduled. - Proceed as scheduled tomorrow for Anthonyu. - Follow up as scheduled. - Pt. aware to call office with any questions/concerns. The patient indicates understanding of these issues and agrees with the plan. All documentation from previous visit of 06/08/23-Dr. Rivers was copied and pasted, documentation has been reviewed and edited as necessary for today's visit. Caity Cote APRN.ALESSANDRO documented in this encounterWestern [facility]24 History of Present illness Narrative* Williams Childers Bud, - 06/16/2023 9:40 AM EST Subjective Patient ID: Renate Christiansen is a 67 y.o. 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 HPI Patient is [place] 67 y.o. female patient who is here today to establish care. Pt has a pmhx of breast cancer diagnosed 7 years ago, s/p lumpectomy, then had mastectomy, with further progression into her lungs, htn, cardiomyopathy 2/2 chemo and radiation, neuropathy. Review of Systems Constitutional: Negative for activity change, appetite change, chills and fatigue. HENT: Negative for congestion, postnasal drip, sinus pressure, sinus pain and sore throat. Respiratory: Negative for cough, shortness of breath and wheezing. Cardiovascular: Negative for chest pain and leg swelling. Gastrointestinal: Negative for abdominal distention, diarrhea, nausea and vomiting. Musculoskeletal: Negative for back pain. Neurological: Negative for weakness and numbness. Objective BP 102/66 Pulse 67 Ht 1.549 m (5' 1) Wt 85.3 kg (188 lb) BMI 35.52 kg/m Physical Exam Constitutional: General: She is not in acute distress. Appearance: Normal appearance. HENT: Head: Normocephalic. Right Ear: Tympanic membrane, ear canal and external ear normal. Left Ear: Tympanic membrane, ear canal and external ear normal. Nose: Nose normal. Mouth/Throat: Pharynx: No oropharyngeal exudate. Eyes: General: Right eye: No discharge. Left eye: No discharge. Extraocular Movements: Extraocular movements intact. Pupils: Pupils are equal, round, and reactive to light. Cardiovascular: Rate and Rhythm: Normal rate and regular rhythm. Heart sounds: No murmur heard. No gallop. Pulmonary: Effort: Pulmonary effort is normal. No respiratory distress. Breath sounds: Normal breath sounds. No wheezing. Abdominal: General: Bowel sounds are normal. There is no distension. Palpations: Abdomen is soft. Tenderness: There is no abdominal tenderness. Musculoskeletal: General: No swelling. Normal range of motion. Cervical back: Neck supple. No tenderness. Skin: General: Skin is warm and dry. Coloration: Skin is not jaundiced. Neurological: General: No focal deficit present. Mental Status: She is alert and oriented to person, place, and time. Cranial Nerves: No cranial nerve deficit. Psychiatric: Mood and Affect: Mood normal. Behavior: Behavior normal. 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 HTN, Cardiomyopathy 2/2 chemo - sees Dr Galeano - continue losartan 25mg po bid - continue losartan 50mg po daily 3. Neuropathy 2/2 chemo - on lyrica Final diagnoses: [C78.01, C78.02] Malignant neoplasm metastatic to both lungs (CMS/HCC) [C79.51] Malignant neoplasm metastatic to bone (CMS/HCC) [G62.0, T45.1X5A] Chemotherapy-induced neuropathy (CMS/HCC) [I42.7, T45.1X5A] Chemotherapy-induced cardiomyopathy (CMS/HCC) [D69.6] Platelets decreased (CMS/HCC) [I10] Primary hypertension [I51.9] Heart disease documented in this [facility] Work Phone: 1(557) 304-880411-22-2023 History of Present illness Narrative* Nicolle Funez RN - 04/27/2023 9:36 AM EST . [facility] History of Present illness Narrative* Rip Rivers DO - 04/26/2023 10:00 AM EST Diagnosis: 1) Metastatic recurrence of ER positive, WV negative, HER2 positive breast cancer. 2) Cardiomyopathy. HPI: The patient is a 67 year old female who discovered a lump on the lower inner portion of her right breast in the fall of 2015. She was seen at [facility] and underwent a right sided core biopsy on 02/16/2016 by interventional radiology. The tissue specimen demonstrated invasive ductal carcinoma, Yohan grade 2. ERpositive (90%, very weak) and WV negative (0%). HER-2 was quantified at 3+. She underwent a right sided lumpectomy and right axillary sentinel lymph node dissection on 02/26/2016. Final pathology demonstrated that within the lumpectomy specimen there was a 2.5 cm single focus ofinvasive carcinoma. DCIS was present comprising about 10% [...] 3) Nerlyx-stopped d/t diarrhea. Last dose of neratinib . I'm never taking that again. Seen here in early March for complaint of right breast fullness and tenderness. Diagnostic mammogram done on 03/07/2019 did not demonstrate a mass within the breast however on ultrasound there was a0.8 cm x 0.6 cm x 0.9 cm lobulated mass with an indistinct margin in the right breast at 1:00 anterior depth 6 cm in the nipple. It was lobulated and hypoechoic with internal echoes. This corresponded to the tender area. There was also a 1.2 x 0.9 x 2 cm lobulated mass with a circumscribed margin in the right breast at 2:00 anterior depth 7 cm from the nipple. It also was hypoechoic with internalechoes. And it also was tender on exam. Patient next underwent ultrasound-guided right breast needle core biopsy 2 on 03/22/2019. Pathology: MICROSCOPIC DIAGNOSIS A. Right breast at 1 o clock, core biopsy: Invasive ductal carcinoma with the following characteristics: Maximal length - 10 mm Nuclear grade - 3/3 Other findings - ductal carcinoma in situ, nuclear 3/3 with focal comedo necrosis. B. Right breast at 2 o clock, core biopsy: Invasive ductal carcinoma with the following characteristics: Maximal length - 1.2 mm Nuclear grade - 2-3/3 ANTIBODY / CLONE RESULT Block A P53 (DO-7) positive, >90% Ki-67 (30-9) positive, 12% CK8 ([id number]) positive CK5-6 (D5 & 1684) negative Calponin-1 (XB636V) negative P40 (BC28) negative E-Cad (ECH-6) positive MORPHOMETRIC ANALYSIS ER (clone 6F11) 15%, weak intensity WV (clone 16/1E2) 0% Her-2Neu (clone CB11) 3+ Block B Calponin-1 (OI881F) negative P40 (BC28) negative CK8 (05ngfpL19) positive INTERPRETATION: A. Right breast 1 o clock, biopsy: Invasive ductal carcinoma, grade 3/3. Positive for estrogen receptors (favorable prognostic indicator). Negative for progesterone receptors (unfavorable prognostic indicator). Positive for overexpression of KSH5tar. B. Right breast 2 o clock, biopsy: Invasive ductal carcinoma, grade 2-3/3. Then underwent right breast modified mastectomy along with axillary lymph node dissection on 04/02/2019. Pathology: MICROSCOPIC DIAGNOSIS Right breast, modified radical mastectomy: Invasive ductal carcinoma x2. Ductal carcinoma in situ. Five out of five lymph nodes, negative for metastatic carcinoma. Hyalinized fibroadenomas x2. See cancer summary below. SJ:breann 04/05/19 INVASIVE BREAST CANCER SUMMARY: Specimen - total breast (including nipple and skin). Procedure - total mastectomy (including nipple and skin). Lymph node sampling - axillary dissection Specimen integrity - single, intact specimen Specimen laterality - right Tumor site - inner quadrant Tumor size: size of largest invasive carcinoma - 3.5 x 1.5 x 1.5 cm Tumor focality - two foci of invasive carcinoma Size of individual foci - 3.5 x 1.5 x 1.5 cm and 2 x 2 x 1 cm Macroscopic and Microscopic extent of tumor: Skin - invasive carcinoma does not invade into the dermis or epidermis. Nipple - DCIS does not involve nipple epidermis. Skeletal muscle - Skeletal muscle is present and is free of carcinoma. Ductal carcinoma in situ (DCIS) - present Extensive intraductal component (EIC) - negative Estimated size (extent) of DCIS - DCIS is present in the area of invasive carcinoma and comprise about 5% of the total tumor volume. Number of blocks with DCIS - 7 Number of blocks examined (breast tissue) - 16 Architectural patterns - cribriform and comedo Nuclear grade - grade 3 (high) Necrosis - present, central (expansive comedo necrosis) Lobular carcinoma in situ (LCIS) - not identified Histologic type of invasive carcinoma - invasive ductal carcinoma (no special type) Histologic Grade (Sorento grade): Glandular/tubular differentiation - score 3 Nuclear pleomorphism - score 3 Mitotic count - score 2 Overall grade - 3 (score of 8) Both tumor show similar morphologic features. Margins - larger focus of invasive carcinoma is present at the closest posterior margin of the specimen. - smaller focus of invasive carcinoma is 1.7 cm away from closest superior margin. - Margins are free of ductal carcinoma in situ. Treatment effect: Response to presurgical (neoadjuvant) therapy - no known presurgical therapy. Lymph-Vascular invasion - not identified Dermal lymph-vascular invasion - not identified Lymph nodes: Number of sentinel lymph nodes examined - 0 Total number of lymph nodes examined (sentinel and nonsentinel) - 5 Number of lymph nodes with macrometastases, micrometastases and isolated tumor cells - 0 Distant metastasis - not applicable Additional pathologic findings - hyalinized fibroadenomas x2 with focal calcifications. See comment. - Dense fibrosis and lobular involution. Ancillary studies - previously performed on section of tumor ([id number] / [id number]). ER - positive (15%, weak intensity) WV - negative (0%) Her2 krista - positive (3+) Microcalcifications - present in both invasive carcinoma and non-neoplastic tissue. Clinical history - Please make reference to previous specimen ([id number]) right breast at 1 o clock and right breast at 2 o clock core biopsies with diagnosis of invasive ductal carcinoma. PATHOLOGIC STAGE: pT2(m) pN0 Mx Evidently the larger focus of cancer was down to the chest wall muscle. Other significant past medical history was asymptomatic decline in ejection fraction 1 receiving Herceptin. Serial echocardiograms--March 2016 at that time he demonstrated ejection fraction of 72%.Another echocardiogram in September 2016 demonstrated ejection fraction of 55%. In November 2016 was 50% and in May 2017 was 45% with mild global hypokinesis. managed with beta-ruth and ARB. Most recent echocardiogram from May 2018 revealed normal left ventricular size with systolic function at lower limits of normal estimated at 53%. The global longitudinal strain was -19.4% (normal) cis. Stage I diastolic dysfunction was observed. Pulmonary artery pressure was 27 mmHg. Had staging CTs scans that suggested lung metastases. Not able to biopsy. Previous therapy: 1) Taxotere/Herceptin/Perjeta. 2) Herceptin/Perjeta. Discontinued 01/2021 for progressive disease. 3) Kadcyla. 02/2021 through 07/2021. Discontinued secondary to significant worsening of neuropathy. 4) SBRT DYLAN metastasis completed 03/02/2023. Current therapy: 1) Enhertu. Interim history: Dyspnea improved. Continues Claritin daily. No cough. Subcutaneous metastasis on the anterior lower chest wall remains no longer palpable to her. 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 Symptoms remain well controlled and stable. PMH, medications and allergies personally reviewed by me today. Any changes documented in appropriate section. ROS: Constitutional: Denies episodes of fever and night sweats. Not significantly fatigued. Normal appetite. Neuro: Denies [place], vertigo, dizziness and imbalance. HEENT: No recent change in voice, vision or hearing. Resp: See above. CVS: See above. GI: Denies dysgeusia. Denies symptoms of stomatitis. Denies dysphagia and odynophagia. Denies abdominal pain. : Denies dysuria or gross hematuria. No symptoms of bladder outlet obstruction. Endo: Denies hot flashes. Denies polyuria and polydipsia. Denies heat and cold intolerance. Musculoskeletal: Denies bone, back, joint and muscular pain. Derm: Denies rash. Denies jaundice and diffuse pruritis. Heme: Denies unusual bleeding and unexplained bruising. Psych: Normal mood. PHYSICAL EXAM: Vitals: Blood pressure 128/70, pulse 64, temperature 36.4 C (97.6 F), temperature source Temporal, weight 87.1 kg (192 lb), SpO2 96 %. Well-appearing and in no acute distress. EYES: Sclerae are anicteric bilaterally. LYMPHATIC: There is no palpable cervical, supraclavicular adenopathy. RESPIRATORY: Normal vesicular breath sounds in all barnes. No rales, wheezes or rhonchi. CARDIOVASCULAR: Rhythm is regular. BREAST: Not examined. ABDOMEN: The abdomen is nondistended. Extremities: No swelling or edema. SKIN: Continued resolution of subcutaneous metastasis near Xyvoid. LABS: Component Latest Ref Rng & Units 04/26/2023 WBC 3.70 - 11.00 k/uL 4.38 RBC 3.90 - 5.20 m/uL 3.72 (L) Hemoglobin 11.5 - 15.5 g/dL 12.6 Hematocrit 36.0 - 46.0 % 37.8 MCV 80.0 - 100.0 fL 101.6 (H) MCH 26.0 - 34.0 pg 33.9 MCHC 30.5 - 36.0 g/dL 33.3 RDW-CV 11.5 - 15.0 % 14.5 Platelet Count 150 - 400 k/uL 176 MPV 9.0 - 12.7 fL 9.2 Neut% % 52.6 Abs Neut (ANC) 1.45 - 7.50 k/uL 2.30 Lymph% % 26.7 Abs Lymph 1.00 - 4.00 k/uL 1.17 Cotton% % 11.6 Abs Cotton <0.87 k/uL 0.51 Eosin% % 8.0 Abs Eosin <0.46 k/uL 0.35 Baso% % 0.9 Abs Baso <0.11 k/uL 0.04 Immature Gran % % 0.2 IMMATURE GRANS (ABS) <0.10 k/uL <0.03 NRBC /100 WBC 0.0 Absolute nRBC <0.01 k/uL <0.01 DTYPE Auto Protein, Total 6.3 - 8.0 g/dL 5.9 (L) Albumin 3.9 - 4.9 g/dL 3.7 (L) Calcium 8.5 - 10.2 mg/dL 8.9 Bilirubin, Total 0.2 - 1.3 mg/dL 0.5 Alkaline Phosphatase 34 - 123 U/L 160 (H) AST 13 - 35 U/L 32 ALT 7 - 38 U/L 16 Glucose 74 - 99 mg/dL 123 (H) BUN 7 - 21 mg/dL 9 Creatinine 0.58 - 0.96 mg/dL 0.92 Sodium 136 - 144 mmol/L 142 Potassium 3.7 - 5.1 mmol/L 3.7 Chloride 97 - 105 mmol/L 107 (H) CO2 22 - 30 mmol/L 28 Anion Gap 9 - 18 mmol/L 7 (L) eGFR >=60 mL/min/1.73m 68 ASSESSMENT/PLAN: (C50.311, Z17.0) Malignant neoplasm of lower-inner quadrant of right breast of female, estrogen receptor positive (HCC) (primary encounter diagnosis) (C79.51) Bone metastases (HCC) (C78.01, C78.02) Malignant neoplasm metastatic to both lungs (HCC) (I42.7, T45.1X5A) Chemotherapy-induced cardiomyopathy (HCC) Assessment: -Originally pT2 pN0(sln) MX ER positive (9%, very weak) WV negative HER overexpressed stage IIA invasive ductal carcinoma the right breast. -Recurrent pT2(m) pN0 (none of 5 LNs) MX ER +(15%, weak intensity)/WV negative (0%) HER2 3+ invasive ductal carcinoma the right breast while on AI (anastrozole). Posterior margin positive--more thanjust focal according to pathologist. Pectoralis fascia rem she calixto. Staging workup revealed multiple lung metastases, not biopsy proven. -Kadcyla discontinued secondary to sudden worsening of neuropathy. -PET showed PD from lung metastases as well as one cutaneous metastasis. No bone metastases. Changed to Enhertu. -Tolerating Enhertu overall very well with exception of constipation that was manageable with prunejuice. -No symptoms of cardiomyopathy. Blood pressure remains well controlled. -Reviewed today's lab work. Platelets normal Plan: -Resume Enhertu. -Continue metoprolol to 25 mg BID. -Continue Cozaar 100 mg daily. -Continue Lyrica 150 mg at HS. -Zometa every 3 months (originally started for hypercalcemia). -Due of US thyroid. -Continue follow-up with Dr. Galeano. -Previously stopped IBU for increase in serum Cr. -Continue potassium chloride 20 mEq daily. -CTs after next cycle. (G62.0, T45.1X5A) Chemotherapy-induced neuropathy (HCC) Assessment: -Kadcyla recently discontinued secondary to sudden worsening of neuropathy. -No subjective change. Symptoms well controlled with Lyrica. Plan: -Continue Lyrica 150 mg twice daily. Portions of this documentation were copied and pasted from previous office visit notes in order to provide a cohesive continuity of the history. The note has been reviewed and edited and updated as necessary. I spent a total of 20 minutes on the date of the service which included preparing to see the patient, [id number] patient care, completing clinical documentation, obtaining and/or reviewing separately obtained history, performing a medically appropriate examination, counseling and educating the pat ient/family/caregiver, ordering medications, tests, or procedures, communicating with other HCPs (not separately reported), and communicating results to the patient/family/caregiver Rip Rivers DO [facility] this [facility] History of Present illness Narrative* Nicolle Funez RN - 04/26/2023 7:19 AM EST Patient is here for IVAD port flush/blood draw per [facility] [place] protocol. IVAD is located in left upper chest. Site cleansed with Chloraprep IVAD accessed with a #20 gauge 3/4 non-coring Gripper needle Flush with 5cc's Normal Saline. Blood Return: Good. 10 cc's blood aspirated and discarded. Blood drawn for CBC and CMP. Flushed with: 20 ml Normal Saline and 5 ml Heparin Lock Flush. Non-coring needle removed. Paper tape applied to puncture site. Site negative for redness, edema or tenderness. Patient tolerated procedure well. [facility] Miscellaneous Notes* Telephone Encounter - Chrissie Elliott LPN - 04/25/2023 4:19 PM EST Spoke with pt, informed was to continue on Potassium daily, new rx sent to pharmacy. Chrissie Elliott LPN * Telephone Encounter - Rip Rivers DO - 04/25/2023 3:55 PM EST Yes, continue potassium. Refill sent. Rip Rivers DO * Telephone Encounter - Bruna Mcmanus LPN - 04/25/2023 3:30 PM EST Pt has an apt tomorrow with labs. Bruna Mcmanus LPN * Telephone Encounter - Sonali Arias - 04/25/2023 3:11 PM EST Patient called in asking if she should be continuing the potassium chloride 20 mEq daily? She stated that she had stopped it while receiving radiation treatments but thought she was supposed to startit again when she starts chemo again. Please advise. If she should be taking it again she will needa new order sent to her pharmacy([facility] in [place]). She stated we do not need to call [facility] back [facility]. Sonali Cast documented in this [facility] History of Present illness Narrative* Caity Cote APRN.TERRITORY DEVELOPMENT MANAGER - 04/06/2023 8:36 AM EDT Chief Complaint Patient presents with: Established Patient HPI: Renate Christiansen is a 67 year old female who presents here today for evaluation for treatment tomorrow. Per Dr. Masci's previous note: H/o pt. discovered a lump on the lower inner portion of her right breast in the fall of 2015. She was seen at [facility] and underwent a right sided core biopsy on 02/16/2016 by interventional radiology. The tissue specimen demonstrated invasive ductal carcinoma, Sorento grade 2. ERpositive (90%, very weak) and WV negative (0%). HER-2 was quantified at 3+. She underwent a right sided lumpectomy and right axillary sentinel lymph node dissection on 02/26/2016. Final pathology demonstrated that within the lumpectomy specimen there was a 2.5 cm single focus ofinvasive carcinoma. DCIS was present comprising about 10% [...] 3) Nerlyx-stopped d/t diarrhea. Last dose of neratinib . I'm never taking that again. Seen here in early March for complaint of right breast fullness and tenderness. Diagnostic mammogram done on 03/07/2019 did not demonstrate a mass within the breast however on ultrasound there was a0.8 cm x 0.6 cm x 0.9 cm lobulated mass with an indistinct margin in the right breast at 1:00 anterior depth 6 cm in the nipple. It was lobulated and hypoechoic with internal echoes. This corresponded to the tender area. There was also a 1.2 x 0.9 x 2 cm lobulated mass with a circumscribed margin in the right breast at 2:00 anterior depth 7 cm from the nipple. It also was hypoechoic with internalechoes. And it also was tender on exam. Patient next underwent ultrasound-guided right breast needle core biopsy 2 on 03/22/2019. Pathology: MICROSCOPIC DIAGNOSIS A. Right breast at 1 o clock, core biopsy: Invasive ductal carcinoma with the following characteristics: Maximal length - 10 mm Nuclear grade - 3/3 Other findings - ductal carcinoma in situ, nuclear 3/3 with focal comedo necrosis. B. Right breast at 2 o clock, core biopsy: Invasive ductal carcinoma with the following characteristics: Maximal length - 1.2 mm Nuclear grade - 2-3/3 ANTIBODY / CLONE RESULT Block A P53 (DO-7) positive, >90% Ki-67 (30-9) positive, 12% CK8 ([id number]) positive CK5-6 (D5 & 1684) negative Calponin-1 (XX581B) negative P40 (BC28) negative E-Cad (ECH-6) positive MORPHOMETRIC ANALYSIS ER (clone 6F11) 15%, weak intensity WV (clone 16/1E2) 0% Her-2Neu (clone CB11) 3+ Block B Calponin-1 ([id number]) negative P40 (BC28) negative CK8 (30loudU62) positive INTERPRETATION: A. Right breast 1 o clock, biopsy: Invasive ductal carcinoma, grade 3/3. Positive for estrogen receptors (favorable prognostic indicator). Negative for progesterone receptors (unfavorable prognostic indicator). Positive for overexpression of MSH8khq. B. Right breast 2 o clock, biopsy: Invasive ductal carcinoma, grade 2-3/3. Then underwent right breast modified mastectomy along with axillary lymph node dissection on 04/02/2019. Pathology: MICROSCOPIC DIAGNOSIS Right breast, modified radical mastectomy: Invasive ductal carcinoma x2. Ductal carcinoma in situ. Five out of five lymph nodes, negative for metastatic carcinoma. Hyalinized fibroadenomas x2. See cancer summary below. SJ:breann 04/05/19 INVASIVE BREAST CANCER SUMMARY: Specimen - total breast (including nipple and skin). Procedure - total mastectomy (including nipple and skin). Lymph node sampling - axillary dissection Specimen integrity - single, intact specimen Specimen laterality - right Tumor site - inner quadrant Tumor size: size of largest invasive carcinoma - 3.5 x 1.5 x 1.5 cm Tumor focality - two foci of invasive carcinoma Size of individual foci - 3.5 x 1.5 x 1.5 cm and 2 x 2 x 1 cm Macroscopic and Microscopic extent of tumor: Skin - invasive carcinoma does not invade into the dermis or epidermis. Nipple - DCIS does not involve nipple epidermis. Skeletal muscle - Skeletal muscle is present and is free of carcinoma. Ductal carcinoma in situ (DCIS) - present Extensive intraductal component (EIC) - negative Estimated size (extent) of DCIS - DCIS is present in the area of invasive carcinoma and comprise about 5% of the total tumor volume. Number of blocks with DCIS - 7 Number of blocks examined (breast tissue) - 16 Architectural patterns - cribriform and comedo Nuclear grade - grade 3 (high) Necrosis - present, central (expansive comedo necrosis) Lobular carcinoma in situ (LCIS) - not identified Histologic type of invasive carcinoma - invasive ductal carcinoma (no special type) Histologic Grade (Sorento grade): Glandular/tubular differentiation - score 3 Nuclear pleomorphism - score 3 Mitotic count - score 2 Overall grade - 3 (score of 8) Both tumor show similar morphologic features. Margins - larger focus of invasive carcinoma is present at the closest posterior margin of the specimen. - smaller focus of invasive carcinoma is 1.7 cm away from closest superior margin. - Margins are free of ductal carcinoma in situ. Treatment effect: Response to presurgical (neoadjuvant) therapy - no known presurgical therapy. Lymph-Vascular invasion - not identified Dermal lymph-vascular invasion - not identified Lymph nodes: Number of sentinel lymph nodes examined - 0 Total number of lymph nodes examined (sentinel and nonsentinel) - 5 Number of lymph nodes with macrometastases, micrometastases and isolated tumor cells - 0 Distant metastasis - not applicable Additional pathologic findings - hyalinized fibroadenomas x2 with focal calcifications. See comment. - Dense fibrosis and lobular involution. Ancillary studies - previously performed on section of tumor ([id number] / [id number]). ER - positive (15%, weak intensity) WV - negative (0%) Her2 krista - positive (3+) Microcalcifications - present in both invasive carcinoma and non-neoplastic tissue. Clinical history - Please make reference to previous specimen ([id number]) right breast at 1 o clock and right breast at 2 o clock core biopsies with diagnosis of invasive ductal carcinoma. PATHOLOGIC STAGE: pT2(m) pN0 Mx Evidently the larger focus of cancer was down to the chest wall muscle. Other significant past medical history was asymptomatic decline in ejection fraction 1 receiving Herceptin. Serial echocardiograms--March 2016 at that time he demonstrated ejection fraction of 72%.Another echocardiogram in September 2016 demonstrated ejection fraction of 55%. In November 2016 was 50% and in May 2017 was 45% with mild global hypokinesis. managed with beta-ruth and ARB. Most recent echocardiogram from May 2018 revealed normal left ventricular size with systolic function at lower limits of normal estimated at 53%. The global longitudinal strain was -19.4% (normal) cis. Stage I diastolic dysfunction was observed. Pulmonary artery pressure was 27 mmHg. Had staging CTs scans that suggested lung metastases. Not able to biopsy. Previous therapy: 1) Taxotere/Herceptin/Perjeta. 2) Herceptin/Perjeta. Discontinued 01/2021 for progressive disease. 3) Kadcyla. 02/2021 through 07/2021. Discontinued secondary to significant worsening of neuropathy. 4) SBRT DYLAN metastasis completed 03/02/2023. Current therapy: 1) Enhertu. I had the moderna shot and I was down for three days. Low grade fevers. Now resolved. Started enhertu back up 03/17/23 after SBRT to DYLAN met. Pt. here today with spouse. Appetite:I'm eating. Energy level:Getting better. Denies fevers since moderna vaccine. Resp:denies cough or sob Cardiac:denies chest pain/palpitations GI:denies abd pain, n/v, moving bowels regularly-occ. constipation :denies dysuria/hematuria Extrem:denies pain Endo:denies hot flashes Neuro:+neuropathy to fingers/toes Skin:denies rashes Heme:denies bleeding The ROS is otherwise negative. Past medical history, appointments, medications, allergies reviewed. No changes. EXAM: BP 117/78 Pulse 78 Temp 36.4 C (97.6 F) (Temporal) Wt 88 kg (194 lb) SpO2 99% BMI 36.66 kg/m APPEARANCE Well appearing, alert, in no acute distress, well-hydrated, well nourished. HEART RRR with normal S1 and S2, no murmurs LUNG clear to auscultation LYMPH NODES No cervical lymphadenopathy, No supraclavicular lymphadenopathy, and No axillary lymphadenopathy. ABDOMEN bowel sounds normoactive, soft, non-tender EXTREMITIES No edema NEURO Awake, alert and oriented x 3, Normal gait, and No involuntary motions. SKIN Skin color, texture, turgor normal, no suspicious rashes or lesions LABS: Component Latest Ref Rng & Units 02/23/2023 03/16/2023 04/06/2023 WBC 3.70 - 11.00 k/uL 4.07 4.29 4.33 RBC 3.90 - 5.20 m/uL 3.75 (L) 3.80 (L) 3.71 (L) Hemoglobin 11.5 - 15.5 g/dL 13.2 13.4 12.7 Hematocrit 36.0 - 46.0 % 40.1 39.3 37.6 MCV 80.0 - 100.0 fL 106.9 (H) 103.4 (H) 101.3 (H) MCH 26.0 - 34.0 pg 35.2 (H) 35.3 (H) 34.2 (H) MCHC 30.5 - 36.0 g/dL 32.9 34.1 33.8 RDW-CV 11.5 - 15.0 % 13.9 13.2 13.4 Platelet Count 150 - 400 k/uL 135 (L) 119 (L) 174 MPV 9.0 - 12.7 fL 9.6 9.8 9.3 Neut% % 54.1 58.5 55.2 Abs Neut (ANC) 1.45 - 7.50 k/uL 2.20 2.51 2.39 Lymph% % 26.8 24.7 27.7 Abs Lymph 1.00 - 4.00 k/uL 1.09 1.06 1.20 Cotton% % 11.1 10.7 10.4 Abs Cotton <0.87 k/uL 0.45 0.46 0.45 Eosin% % 7.1 5.4 6.0 Abs Eosin <0.46 k/uL 0.29 0.23 0.26 Baso% % 0.7 0.5 0.5 Abs Baso <0.11 k/uL 0.03 <0.03 <0.03 Immature Gran % % 0.2 0.2 0.2 IMMATURE GRANS (ABS) <0.10 k/uL <0.03 <0.03 <0.03 NRBC /100 WBC 0.0 0.0 0.0 Absolute nRBC <0.01 k/uL <0.01 <0.01 <0.01 DTYPE Auto Auto Auto CMP: Pending ASSESSMENT/PLAN: 1. Malignant neoplasm of lower-inner quadrant of right breast of female, estrogen receptor positive(HCC) - ICD9: 174.3, V86.0, ICD10: C50.311, Z17.0 (primary diagnosis) 2. Malignant neoplasm metastatic to bone (HCC) - ICD9: 198.5, ICD10: C79.51 3. Malignant neoplasm metastatic to lung, unspecified laterality (HCC) - ICD9: 197.0, ICD10: C78.00 Metastatic recurrence of ER positive, WV negative, HER2 positive breast cancer. Originally pT2 pN0(sln) MX ER positive (9%, very weak) WV negative HER overexpressed stage IIA invasive ductal carcinoma the right breast. - Overall tolerated SBRT and enhertu/zometa well. - Reviewed CBC wit pt. - CMP pending. - Continue current medications. - Continue follow up with cards/monitor ECHO. - Proceed as scheduled tomorrow for enhertu/zometa pending all labs. - Follow up as scheduled. - Pt. aware to call office with any questions/concerns. The patient indicates understanding of these issues and agrees with the plan. All documentation from previous visit of 03/16/23-Dr. Rivers was copied and pasted, documentation has been reviewed and edited as necessary for today's visit. Caity Cote APRN.ALESSANDRO documented in this encounterWestern [facility]10-25-2023 Miscellaneous Notes* Telephone Encounter - Tiffany Hager - 03/30/2023 3:06 PM EDT Scheduled with patient * Telephone Encounter - Alexia Stephens - 03/30/2023 2:46 PM EDT Per CC Chart, patient needs CT Chest and a follow up call in 2 mos. LM for patient to return call. Alexia Stephens documented in this encounterWestern [facility] Hospital10-25-2023 History of Present illness Narrative* Meenu Garay MD, MD - 03/30/2023 2:27 PM EDT AMBULATORY TELEPHONE VISIT Renate Christiansen has consented to this telephone encounter. Persons Present: patient Chief Complaint/Reason: Four week follow-up after radiation treatment. HPI: Metastatic breast cancer on Enhertu with solitary progression in the left upper lung nodule s/p radiation treatment finished on 03/02/23. She is doing well without any specific new complaints. She reports good energy. Data Reviewed: None. Assessment: She didn't have any significant acute SBRT treatment complications. Plan: I will get a follow-up CT chest in two months. Total Time Spent: 5 minutes Meenu Garay MD documented in this encounterWestern [facility] Hospital10-20-2023 Miscellaneous Notes* Telephone Encounter - Tiffany Hager - 03/25/2023 1:47 PM EDT Message relayed to patient * Telephone Encounter - Jazlyn Harding LPN - 03/25/2023 8:03 AM EDT Message left for patient to contact office. [employer] message also sent. Jazlyn Harding LPN * Telephone Encounter - Rip Rivers DO - 03/24/2023 5:37 PM EDT Can let her know ultrasound of the thyroid showed stable nodules. Radiologist recommended 1 year follow-up ultrasound. Rpi Rivers DO documented in this encounterWestern [facility] Hospital10-18-2023 History of Present illness Narrative* Doreen Capellan RT(R) - 03/23/2023 10:45 AM EDT Radiology Service Progress Note PATIENT NAME: Renate Christiansen DATE OF SERVICE: March 23, 2023 TIME: 11:03 AM PATIENT IDENTITY VERIFICATION COMPLETED USING TWO (2) IDENTIFIERS: Name and Date of confirmedby patient verbally. FALL SCREENING: Has the patient had 2 falls in the last year or 1 fall with injury or currently using an Ambulatory Assistive Device (Walker, Cane, Wheelchair, Crutches, etc.)? No PATIENT GENDER DATA: Female. status: : No status: N/A PATIENT RELEVANT IMPLANT DATA REVIEWED: Not Applicable RADIOLOGY DEPARTMENT: Ultrasound PERIPHERAL IV DATA: Not applicable SIGNED BY: Doreen Capellan Rdms March 23, 2023 11:03 AM documented in this [facility]10-12-[facility] History of Present illness Narrative* Rosemary Romero RN - 03/17/2023 1:23 PM EDT Assessment unchanged from 03/16/[address] Rivers documented in this [facility]10-11-[facility] History of Present illness Narrative* Nicolle Funez RN - 03/16/2023 7:28 AM EDT Patient is here for IVAD port flush/blood draw per Nursing [place] protocol. IVAD is located in left upper chest. Site cleansed with Chloraprep IVAD accessed with a #20 gauge 3/4 non-coring Gripper needle Flush with 5cc's Normal Saline. Blood Return: Good. 10 cc's blood aspirated and discarded. Blood drawn for CBC and CMP. Flushed with: 20 ml Normal Saline and 5 ml Heparin Lock Flush. Non-coring needle removed. Paper tape applied to puncture site. Site negative for redness, edema or tenderness. Patient tolerated procedure well. documented in this [facility]10-06-[facility] History of Present illness Narrative* Ruth Baca RT(R) - 03/11/2023 11:40 AM EDT Radiology Service Progress Note PATIENT NAME: Renate Christiansen DATE OF SERVICE: March 11, 2023 TIME: 11:38 AM PATIENT IDENTITY VERIFICATION COMPLETED USING TWO (2) IDENTIFIERS: Name and Date of confirmedby patient verbally. FALL SCREENING: Has the patient had 2 falls in the last year or 1 fall with injury or currently using an Ambulatory Assistive Device (Walker, Cane, Wheelchair, Crutches, etc.)? No PATIENT GENDER DATA: Female. status: : No status: NO. PATIENT RELEVANT IMPLANT DATA REVIEWED: Not Applicable RADIOLOGY DEPARTMENT: CT; Exam(s) Completed: Chest PERIPHERAL IV DATA: Not applicable SIGNED BY: Ruth Baca RT(R) March 11, 2023 11:38 AM documented in this encounterWestern [facility]09-20-2023 History of Present illness Narrative* Meenu Garay MD, MD - 02/23/2023 10:38 AM EDT Radiation Oncology - On Treatment Review (OTR) Note PATIENT NAME: Renate Christiansen PATIENT DIAGNOSIS: Metastatic breast cancer on Enhertu with solitary progression in the left upper lung nodule. COURSE: SBRT (stereotactic body radiotherapy) AREA TREATED: Left upper lung CURRENT DOSE: 2000 cGy in 2 fx PLANNED DOSE: 5000 cGy in 5 fx Status: Post-menopausal SUBJECTIVE: She is doing well without any specific new complaints. EXAM: KPS: 100 General Appearance: Alert and oriented. No acute distress. IMAGING/LAB RESULTS: None Treatment chart checked: Yes Patient treatment site reviewed and verified:Yes CBCTs reviewed and current:Yes Medications started: None ASSESSMENT/PLAN: Clinically stable. No signs of toxicity. Continue radiation treatment as planned. Meenu Garay MD documented in this encounterWestern Reserve Hospital09-20-2023 Nurse Note* Dee Douglas RN - 02/23/2023 10:38 AM EDT Radiation Therapy - Nursing Note (OTV) PATIENT NAME: Renate Christiansen PATIENT February 23, 2023 [facility] FACILITY/LOCATION: [facility] NOTE TYPE: BREAST- metastatic Subjective Data no complants Additional Data Do you want to see a Recreation Supervisor? No Status: Post-menopausal. Stress Scale: On a scale of 0 to 10, what number best describes how much distress you have experienced in the past week?(0 being no distress and 10 being extreme distress) 5 Social work notified: Pt denied need to see social work administrator at this time. Nursing Assessment Fatigue: increased fatigue over baseline but not altering normal activities Appetite: good Nutritional Intake: Regular oral intake. Weight Gain/Loss: No Ambulatory weight history: Last 6 Encounter Wt Readings: Date: Wt: 02/23/2023 85.5 kg (188 lb 8 oz) 02/23/2023 85.5 kg (188 lb 8 oz) 02/03/2023 85.7 kg (189 lb) 02/02/2023 85.7 kg (189 lb) 02/02/2023 85.7 kg (189 lb) 01/12/2023 85.5 kg (188 lb 8 oz) Nausea:None Vomiting: None Bowel Function: normal bowel movements Erythema/Hyperpigmentation:none Desquamation:none Rash:none Skin Care: None Skin Sensation: Within Normal Limits Focused Assessment CHEST: Dysphagia: No. Pain with swallowing: No. Shortness of breath: No. Cough: None. SIGNED by: Dee Douglas RN documented in this encounterWestern [facility] Hospital09-20-2023 History of Present illness Narrative* Rip Rivers DO - 02/23/2023 10:02 AM EDT Diagnosis: 1) Metastatic recurrence of ER positive, WV negative, HER2 positive breast cancer. 2) Cardiomyopathy. HPI: The patient is a 67 year old female who discovered a lump on the lower inner portion of her right breast in the fall of 2015. She was seen at [facility] and underwent a right sided core biopsy on 02/16/2016 by interventional radiology. The tissue specimen demonstrated invasive ductal carcinoma, Sorento grade 2. ERpositive (90%, very weak) and WV negative (0%). HER-2 was quantified at 3+. She underwent a right sided lumpectomy and right axillary sentinel lymph node dissection on 02/26/2016. Final pathology demonstrated that within the lumpectomy specimen there was a 2.5 cm single focus ofinvasive carcinoma. DCIS was present comprising about 10% [...] 3) Nerlyx-stopped d/t diarrhea. Last dose of neratinib . I'm never taking that again. Seen here in early March for complaint of right breast fullness and tenderness. Diagnostic mammogram done on 03/07/2019 did not demonstrate a mass within the breast however on ultrasound there was a0.8 cm x 0.6 cm x 0.9 cm lobulated mass with an indistinct margin in the right breast at 1:00 anterior depth 6 cm in the nipple. It was lobulated and hypoechoic with internal echoes. This corresponded to the tender area. There was also a 1.2 x 0.9 x 2 cm lobulated mass with a circumscribed margin in the right breast at 2:00 anterior depth 7 cm from the nipple. It also was hypoechoic with internalechoes. And it also was tender on exam. Patient next underwent ultrasound-guided right breast needle core biopsy 2 on 03/22/2019. Pathology: MICROSCOPIC DIAGNOSIS A. Right breast at 1 o clock, core biopsy: Invasive ductal carcinoma with the following characteristics: Maximal length - 10 mm Nuclear grade - 3/3 Other findings - ductal carcinoma in situ, nuclear 3/3 with focal comedo necrosis. B. Right breast at 2 o clock, core biopsy: Invasive ductal carcinoma with the following characteristics: Maximal length - 1.2 mm Nuclear grade - 2-3/3 ANTIBODY / CLONE RESULT Block A P53 (DO-7) positive, >90% Ki-67 (30-9) positive, 12% CK8 (98hktqX09) positive CK5-6 (D5 & 1684) negative Calponin-1 (ER207T) negative P40 (BC28) negative E-Cad (ECH-6) positive MORPHOMETRIC ANALYSIS ER (clone 6F11) 15%, weak intensity WV (clone 16/1E2) 0% Her-2Neu (clone CB11) 3+ Block B Calponin-1 (HJ761D) negative P40 (BC28) negative CK8 (49wforA99) positive INTERPRETATION: A. Right breast 1 o clock, biopsy: Invasive ductal carcinoma, grade 3/3. Positive for estrogen receptors (favorable prognostic indicator). Negative for progesterone receptors (unfavorable prognostic indicator). Positive for overexpression of QXE0agj. B. Right breast 2 o clock, biopsy: Invasive ductal carcinoma, grade 2-3/3. Then underwent right breast modified mastectomy along with axillary lymph node dissection on 04/02/2019. Pathology: MICROSCOPIC DIAGNOSIS Right breast, modified radical mastectomy: Invasive ductal carcinoma x2. Ductal carcinoma in situ. Five out of five lymph nodes, negative for metastatic carcinoma. Hyalinized fibroadenomas x2. See cancer summary below. SJ:breann 04/05/19 INVASIVE BREAST CANCER SUMMARY: Specimen - total breast (including nipple and skin). Procedure - total mastectomy (including nipple and skin). Lymph node sampling - axillary dissection Specimen integrity - single, intact specimen Specimen laterality - right Tumor site - inner quadrant Tumor size: size of largest invasive carcinoma - 3.5 x 1.5 x 1.5 cm Tumor focality - two foci of invasive carcinoma Size of individual foci - 3.5 x 1.5 x 1.5 cm and 2 x 2 x 1 cm Macroscopic and Microscopic extent of tumor: Skin - invasive carcinoma does not invade into the dermis or epidermis. Nipple - DCIS does not involve nipple epidermis. Skeletal muscle - Skeletal muscle is present and is free of carcinoma. Ductal carcinoma in situ (DCIS) - present Extensive intraductal component (EIC) - negative Estimated size (extent) of DCIS - DCIS is present in the area of invasive carcinoma and comprise about 5% of the total tumor volume. Number of blocks with DCIS - 7 Number of blocks examined (breast tissue) - 16 Architectural patterns - cribriform and comedo Nuclear grade - grade 3 (high) Necrosis - present, central (expansive comedo necrosis) Lobular carcinoma in situ (LCIS) - not identified Histologic type of invasive carcinoma - invasive ductal carcinoma (no special type) Histologic Grade (Yohan grade): Glandular/tubular differentiation - score 3 Nuclear pleomorphism - score 3 Mitotic count - score 2 Overall grade - 3 (score of 8) Both tumor show similar morphologic features. Margins - larger focus of invasive carcinoma is present at the closest posterior margin of the specimen. - smaller focus of invasive carcinoma is 1.7 cm away from closest superior margin. - Margins are free of ductal carcinoma in situ. Treatment effect: Response to presurgical (neoadjuvant) therapy - no known presurgical therapy. Lymph-Vascular invasion - not identified Dermal lymph-vascular invasion - not identified Lymph nodes: Number of sentinel lymph nodes examined - 0 Total number of lymph nodes examined (sentinel and nonsentinel) - 5 Number of lymph nodes with macrometastases, micrometastases and isolated tumor cells - 0 Distant metastasis - not applicable Additional pathologic findings - hyalinized fibroadenomas x2 with focal calcifications. See comment. - Dense fibrosis and lobular involution. Ancillary studies - previously performed on section of tumor ([id number] / [id number]). ER - positive (15%, weak intensity) WV - negative (0%) Her2 krista - positive (3+) Microcalcifications - present in both invasive carcinoma and non-neoplastic tissue. Clinical history - Please make reference to previous specimen ([id number]) right breast at 1 o clock and right breast at 2 o clock core biopsies with diagnosis of invasive ductal carcinoma. PATHOLOGIC STAGE: pT2(m) pN0 Mx Evidently the larger focus of cancer was down to the chest wall muscle. Other significant past medical history was asymptomatic decline in ejection fraction 1 receiving Herceptin. Serial echocardiograms--March 2016 at that time he demonstrated ejection fraction of 72%.Another echocardiogram in September 2016 demonstrated ejection fraction of 55%. In November 2016 was 50% and in May 2017 was 45% with mild global hypokinesis. managed with beta-ruth and ARB. Most recent echocardiogram from May 2018 revealed normal left ventricular size with systolic function at lower limits of normal estimated at 53%. The global longitudinal strain was -19.4% (normal) cis. Stage I diastolic dysfunction was observed. Pulmonary artery pressure was 27 mmHg. Had staging CTs scans that suggested lung metastases. Not able to biopsy. Previous therapy: 1) Taxotere/Herceptin/Perjeta. 2) Herceptin/Perjeta. Discontinued 01/2021 for progressive disease. 3) Kadcyla. 02/2021 through 07/2021. Discontinued secondary to significant worsening of neuropathy. Current therapy: 1) Enhertu. Interim history: Developed wheezing and shortness of breath that came on gradually. ED--CTA no PE. No evidence of pneumonitis. All symptoms resolved after starting Claritin daily. Subcutaneous metastasis on the anterior lower chest wall remains no longer palpable to her. 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 Symptoms remain well controlled and stable. PMH, medications and allergies personally reviewed by me today. Any changes documented in appropriate section. ROS: Constitutional: Denies episodes of fever and night sweats. Not significantly fatigued. Normal appetite. Neuro: Denies [place], vertigo, dizziness and imbalance. HEENT: No recent change in voice, vision or hearing. Resp: See above. CVS: See above. GI: Denies dysgeusia. Denies symptoms of stomatitis. Denies dysphagia and odynophagia. Denies abdominal pain. : Denies dysuria or gross hematuria. No symptoms of bladder outlet obstruction. Endo: Denies hot flashes. Denies polyuria and polydipsia. Denies heat and cold intolerance. Musculoskeletal: Denies bone, back, joint and muscular pain. Derm: Denies rash. Denies jaundice and diffuse pruritis. Heme: Denies unusual bleeding and unexplained bruising. Psych: Normal mood. PHYSICAL EXAM: Vitals: Blood pressure 121/78, pulse 62, temperature 37.2 C (99 F), weight 85.5 kg (188 lb 8 oz), SpO2 95 %. Well-appearing and in no acute distress. EYES: Sclerae are anicteric bilaterally. LYMPHATIC: There is no palpable cervical, supraclavicular adenopathy. RESPIRATORY: Normal vesicular breath sounds in all barnes. No rales, wheezes or rhonchi. CARDIOVASCULAR: Rhythm is regular. BREAST: Not examined. ABDOMEN: The abdomen is nondistended. Extremities: No swelling or edema. SKIN: Continued resolution of subcutaneous metastasis near Xyvoid. LABS: ASSESSMENT/PLAN: (C50.311, Z17.0) Malignant neoplasm of lower-inner quadrant of right breast of female, estrogen receptor positive (HCC) (primary encounter diagnosis) (C79.51) Bone metastases (HCC) (C78.01, C78.02) Malignant neoplasm metastatic to both lungs (HCC) (I42.7, T45.1X5A) Chemotherapy-induced cardiomyopathy (HCC) Assessment: -Originally pT2 pN0(sln) MX ER positive (9%, very weak) WV negative HER overexpressed stage IIA invasive ductal carcinoma the right breast. -Recurrent pT2(m) pN0 (none of 5 LNs) MX ER +(15%, weak intensity)/WV negative (0%) HER2 3+ invasive ductal carcinoma the right breast while on AI (anastrozole). Posterior margin positive--more thanjust focal according to pathologist. Pectoralis fascia rem she calixto. Staging workup revealed multiple lung metastases, not biopsy proven. -Kadcyla discontinued secondary to sudden worsening of neuropathy. -PET showed PD from lung metastases as well as one cutaneous metastasis. No bone metastases. Changed to Enhertu. -Tolerating Enhertu overall very well with exception of constipation that is manageable with prune juice. -No symptoms of pneumonitis. -No symptoms of cardiomyopathy. Blood pressure remains well controlled. -Reviewed today's lab work. Platelet count normal. -Reviewed CT scans. One progressive nodule left upper lobe peripherally. Discussed with Dr. Garay. Candidate for palliative radiation. -She had her echocardiogram at [facility] but report not yet rendered. Plan: -Continue Claritin. -Enhertu will resume several weeks after radiation. -Continue metoprolol to 25 mg BID. -Continue Cozaar 100 mg daily. -Continue Lyrica 150 mg at HS. -Zometa to every 3 months (originally started for hypercalcemia). -US thyroid February. -Continue follow-up with Dr. Galeano. -Previously stopped IBU for increase in serum Cr. -Continue potassium chloride 20 mEq daily. (G62.0, T45.1X5A) Chemotherapy-induced neuropathy (HCC) Assessment: -Kadcyla recently discontinued secondary to sudden worsening of neuropathy. -No subjective change. Symptoms well controlled with Lyrica. Plan: -Continue Lyrica 150 mg twice daily. Portions of this documentation were copied and pasted from previous office visit notes in order to provide a cohesive continuity of the history. The note has been reviewed and edited and updated as necessary. I spent a total of 20 minutes on the date of the service which included preparing to see the patient, [id number] patient care, completing clinical documentation, obtaining and/or reviewing separately obtained history, performing a medically appropriate examination, counseling and educating the pat ient/family/caregiver, ordering medications, tests, or procedures, communicating with other HCPs (not separately reported), and communicating results to the patient/family/caregiver. Rip Rivers DO documented in this encounterWestern [facility] Hospital09-14-2023 Discharge summary Author Malika Garay [facility] February 17, 2023 1:45pm Note Date/Time February 17, 2023 1:33pm [facility] Medical Records Department [address] [place] [address] Discharge Summary 02/17/23 1320 MR#: [id number] Acct: [id number] Name: RENATE CHRISTIANSEN Rep #:[id number] 4 : 1955 67 From: Malika Garay DO PCP: Dr. Mitch Mejia MD Status:ADM KELLIE Location: [place] [address] Providers Date of Admission: 02/16/23 Date of Discharge: 02/17/23 Primary Care Physician: Dr. Mitch Mejia MD Reason For Visit: DYSPNEA Diagnosis Discharge Diagnosis (1) Elevated d-dimer: Status: Acute Code(s): R79.89 - Other specified abnormal findings of blood chemistry (2) Acute dyspnea: Status: Acute Code(s): R06.00 - Dyspnea, unspecified Medications at Discharge Home Medications naproxen sodium 220 mg capsule 220 mg PO Q8H PRN PRN Pain Or Fever 03/29/19 metoprolol tartrate 25 mg tablet 25 mg PO BID 01/22/20 pregabalin 150 mg capsule 150 mg PO BID 09/15/21 multivitamin 1 tab PO DAILY 11/26/22 losartan 100 mg tablet 100 mg PO QDAY HTN #90 tabs 01/20/23 diphenhydramine HCl 25 mg capsule (Benadryl) 25 mg PO QHS 02/16/23 acetaminophen 500 mg capsule 500 mg PO .COMPLEX 02/17/23 Hospital Course Operations None Procedures EKG and - (CT/CTA chest) Summary of Care Provided Minutes Spent on Discharge: 22 Hospital Course: Mrs. Christiansen a 67-year-old white female who presents emergency department at [facility] on 02/17/2023 with a chief complaint of shortness of breath. She has a history of metastatic right breast cancer with metastatic disease to her lungs and is status post right total mastectomy. She is undergoing chemo and radiation and was sent to the emergency department by her oncologist, Dr. Rivers, because of a 2-week history of progressively worsening shortness of breath. She has had a recent echocardiogram as she has known previous cardiomyopathy from her chemotherapy. Most recent echo was on 02/08/2023nd showed an EF of 55% with stage I diastolic dysfunction and normal LV function. She has poor peripheral IV access and has a med port. This was unfortunately unable to be accessed by the emergency department or CT scan yesterday so a noncontrasted CT was done initially to rule out any pneumonitis as pneumonitis is a side effect of her current chemo regimen. No pneumonitis was identified and she was admitted because her D-dimer was elevated at 0.77. PE needed to be ruled out and they could not guarantee outpatient CTA be performed the following day. We were able to get her port accessed and a CTA performed. Her CTA was negative for any PE or any other significant abnormalities other than known pulmonary nodules from metastatic breast cancer. She was able to be discharged in stable condition on 02/17/2023 on room air. Shehad no signs of hypoxia during her hospitalization. Discharge diagnoses: Shortness of breath without hypoxia Metastatic breast cancer History of nonischemic cardiomyopathy Obesity Neuropathy Hypertension Stage I diastolic dysfunction Physical Exam Const alert, oriented x3, no apparent distress, no limitations and well nourished Constitutional Narrative: Obese, upper middle-aged, white female, sitting up in bed, at bedside, patient appears comfortable and nontoxic, no signs of respiratory issues General Appearance: cooperative, comfortable, well kempt and well developed Orientation / Consciousness: awake, oriented to person, oriented to place and oriented to time Exam Limitations: no limitations Nutritional Appearance: obese HEENT normocephalic, head/scalp atraumatic, hearing grossly normal bilaterally and moist oral mucous membranes Resp normal respiratory effort, no retractions, no use of accessory muscles and clearto auscultation bilaterally Auscultation: Negative for rales, rhonchi or wheezes Cardio regular rate, regular rhythm, S1 normal heart sound, S2 normal heart sound, no murmurs, no rub, no gallops and no clicks GI normal to inspection, nondistended, normoactive bowel sounds, soft to palpation and non-tender Extremity no clubbing, cyanosis or edema Extremity Narrative: Pedal pulses are 2+ Neuro oriented x3, moves all extremities and no focal motor deficits Speech: speech normal Psych affect normal Psych Narrative: Very pleasant, interacts appropriately Weight / BMI Weight Weight: 81.925 kg Body Mass Index (BMI) 34.1 ABG / Lab / Microbiology Data 02/16/23 20:20 02/16/23 19:30 Laboratory: Laboratory Results - last 24 hr 02/16/23 19:30: WBC Cancelled, Corrected WBC Cancelled, RBC Cancelled, Hgb Cancelled, Hct Cancelled, MCV Cancelled, MCH Cancelled, MCHC Cancelled, RDW Std Deviation Cancelled, RDW Coeff of Martin Cancelled, Plt Count Cancelled, MPV Cancelled, Immature Gran % (Auto) Cancelled, Neut % (Auto) Cancelled, Lymph % (Auto) Cancelled, Cotton % (Auto) Cancelled, Eos % (Auto) Cancelled, Baso % (Auto)Cancelled, Absolute Neuts (auto) Cancelled, Absolute Lymphs (auto) Cancelled, Total Counted Cancelled, Neutrophils % (Manual) Cancelled, Band Neutrophils % Cancelled, Lymphocytes % (Manual) Cancelled, Monocytes % (Manual) Cancelled, Eosinophils % (Manual) Cancelled, Basophils % (Manual) Cancelled, Metamyelocytes% Cancelled, Myelocytes % Cancelled, Promyelocytes % Cancelled, Blast Cells % Cancelled, Plasma Cell % (Manual) Cancelled, Other Cells % Cancelled, Nucleated RBC % Cancelled, Nucleated RBCs/100 WBC Cancelled, Differential Comment Cancelled, Diff Path Review Cancelled, Hypersegmented Neuts Cancelled, Atypical Lymphocytes Cancelled, Reactive Lymphocytes Cancelled, Smudge Cells Cancelled, Toxic Granulation Cancelled, Toxic Vacuolation Cancelled, Dohle Bodies Cancelled, Anuel Rods Cancelled, Platelet Estimate Cancelled, Plt Morphology Comment Cancelled, RBC Morphology Cancelled 02/16/23 19:30: RBC Morphology Cancelled, Polychromasia Cancelled, HypochromasiaCancelled, Poikilocytosis Cancelled, Basophilic Stippling Cancelled, Anisocytosis Cancelled, Microcytosis Cancelled, Macrocytosis Cancelled, Spherocytes Cancelled, Sickle Cells Cancelled, Target Cells Cancelled, Tear DropCells Cancelled, Ovalocytes Cancelled, Stomatocytes Cancelled, [place] Bodies Cancelled, Tonya Cells Cancelled, Bite Cells Cancelled, Crenated Cell Cancelled, Acanthocytes (Spur) Cancelled, Rouleaux Cancelled, Schistocytes Cancelled, Sodium 143, Potassium 4.4, Chloride 109 H, Carbon Dioxide 31.0, AnionGap 3 L, BUN 12, Creatinine 0.91, Estim Creat Clear Calc 44.03, Est GFR (MDRD) Af Amer 78, Est GFR (MDRD) Non-Af 65, BUN/Creatinine Ratio 13.1, Glucose 90, Calcium 9.6, Troponin I High Sens 9, B-Natriuretic Peptide 92.8 02/16/23 20:20: WBC 4.7, RBC 3.53 L, Hgb 12.7, Hct 39.3, MCV 111.3 H, MCH 36.0 H, MCHC 32.3, RDW Std Deviation 59.1 H, RDW Coeff of Martin 14.3, Plt Count 115 L, MPV 10.5, Immature Gran % (Auto) 0.200, Neut % (Auto) 58.7, Lymph % (Auto) 24.5,Cotton % (Auto) 10.8 H, Eos % (Auto) 5.2 H, Baso % (Auto) 0.6, Absolute Neuts (auto) 2.7, Absolute Lymphs (auto) 1.14, Nucleated RBC % 0 02/16/23 21:05: D-Dimer Quant (PE/DVT) 0.77 H* Radiography Diagnostic Testing: Radiology Impression Chest X-Ray 02/16/23 21:20 IMPRESSION: No active disease. Electronically Signed: Jacob Dunn MD at 21:48 EDT , Chest CT 02/16/23 22:02 IMPRESSION: 1. 8 mm noncalcified left upper lobe nodule and correlation with prior studies, follow-up CT, PET CT would be useful. 2. Sclerotic lesion of the manubrium and correlation with prior studies or bone scan may be useful. 3. Small hiatal hernia. 4. Severe levoscoliosis of the thoracolumbar spine with deformity of the chest and abdomen. Electronically Signed: Jacob Dunn MD at 22:49 EDT , Chest CTA 02/17/23 08:04 IMPRESSION: No evidence of pulmonary embolism. 1.1 cm noncalcified pleural-based nodule in the peripheral lateral aspect of the left upper lobe. Electronically Signed: Dandre Monk MD at 12:15 EDT , Chest X-Ray 02/17/23 09:35 IMPRESSION: Dextroscoliosis. Mild increased markings at the left lung base suggestive of atelectasis. Large hiatal hernia. Electronically Signed: Dandre Monk MD at 10:05 EDT , D/C Instructions Discharge Diet: No restrictions Discharge Activity: Return to Normal Activity Meaningful Use Info Meaningful Use Diagnoses (Choose all that apply): None applicable Discharge Plan Admission Admit Date/Time: 02/16/23 23:34 Primary Reason for Your Visit: Shortness of breath Attending Provider: Malika Garay Primary Care Provider: Mitch Mejia Consulting Providers: Luis Stratton Discharge Orders/Prescriptions Prescriptions: Continued metoprolol tartrate 25 mg tablet 25 mg PO BID pregabalin 150 mg capsule 150 mg PO BID naproxen sodium 220 MG capsule 220 mg PO Q8H PRN PRN (Reason: Pain Or Fever) multivitamin Tablet 1 tab PO DAILY diphenhydramine HCl [Benadryl] 25 mg capsule 25 mg PO QHS acetaminophen 500 mg capsule 500 mg PO .COMPLEX Rx Instructions: 500 mg orally; pt takes one tab in the morning and two tabs (1000mg) at night losartan 100 mg tablet 100 mg PO QDAY Qty: 90 3RF Referrals / Follow Up: Mitch Mejia MD [Primary Care Provider] - See Referral Note (As needed) Rip Rivers DO [Med Staff - Active Staff] - Disposition Disposition (needs filled in before D/C Order can be placed): Home, Self Care Charges/Coding Visit Charges Inpatient E&M: 33328 Disch Hosp 02/17/23 1345 <Electronically signed by Malika Garay DO> Cosigner Signature (if applicable): CC: Dr. Mitch Mejia MD; Dr. Malika Garay DO~ Signed [facility] Work Phone: 1(687) 191-163909-14-2023 History and physical note Author Luis alexa [facility] February 17, 2023 9:42am Note Date/Time February 16, 2023 11:30pm [facility] Medical Records Department [address] [place] [id number] H&P Exam - Hospitalist 02/16/23 2330 MR#: [id number] Acct: [id number] Name: RENATE CHRISTIANSEN Rep #:[id number] : 1955 67 From: Luis Stratton MD PCP: Dr. Mitch Mejia MD Status:ADM KELLIE Location: [place] [address] HPI - General General Date of Admission: 02/16/23 Date of Service: 02/17/23 Chief Complaint: Shortness of breath HPI Narrative RENATE CHRISTIANSEN, is a 67 F with a significant history of metastatic right breast cancer to lungs status post right total mastectomy; and chemoradiation who was sent to emergency department because of 2-week history of progressively worsening shortness of breath. Patient was sent to the emergency department by her oncologist Dr. Rivers. Patient reports worsening of chronic neuropathy pain in her bilateral fingers. At the emergency department patient her port could not be assessed and it is very difficult to find veins for her. Attempts to do a CTA of her chest was subsequently canceled. D-dimer came back elevated. The concern was that the patient may be having a pneumonitis from chemotherapy or PE. CT scan did not show pneumonitis. ED physician discussed case with Dr. Rivers who recommend theat patient stays for aVQ scan or an attempt to assess her port. Of note patient is scheduled to begin radiation on 02/21/2023. Because her current chemotherapy did not work well with previous radiation; her chemo has been on hold since January 13, 2023. [facility] Medical History Breast cancer metastasized to bone Breast cancer metastasized to lung Breast cancer, right breast Chemotherapy management, encounter for Non-ischemic cardiomyopathy Obesity Home Medications naproxen sodium 220 mg capsule 220 mg PO Q8H PRN PRN Pain Or Fever 03/29/19 [History Last Taken Unknown] metoprolol tartrate 25 mg tablet 25 mg PO BID 01/22/20 [History Last Taken Unknown] pregabalin 150 mg capsule 150 mg PO BID 09/15/21 [History Last Taken Unknown] multivitamin 1 tab PO DAILY 11/26/22 [History Last Taken Unknown] losartan 100 mg tablet 100 mg PO QDAY HTN #90 tabs 01/20/23 [Rx Last Taken Unknown] diphenhydramine HCl 25 mg capsule (Benadryl) 25 mg PO QHS 02/16/23 [History Last Taken Unknown] acetaminophen 500 mg capsule 500 mg PO .COMPLEX 02/17/23 [History Last Taken Unknown] Allergy/AdvReac Type Severity Reaction Status Date / Time acetaminophen [From Percocet] Allergy hives and Verified 11/26/22 11:36 nausea amoxicillin Allergy Fever and Verified 11/26/22 11:36 skin rash Cephalosporins Allergy Fever and Verified 11/26/22 11:36 skin rash ciprofloxacin [From Cipro] Allergy Fever and Verified 11/26/22 11:36 skin rash codeine Allergy Fever and Verified 11/26/22 11:36 skin rash erythromycin base Allergy Fever and Verified 11/26/22 11:36 skin rash hydrocodone [From Sully] Allergy hives and Verified 11/26/22 11:36 nausea latex Allergy Rash Verified 11/26/22 11:36 nalbuphine [From Nubain] Allergy Fever and Verified 11/26/22 11:36 skin rash oxycodone [From Percocet] Allergy hives and Verified 11/26/22 11:36 nausea prednisone Allergy hives Verified 11/26/22 11:36 with blood underneath Sulfa (Sulfonamide Allergy Fever and Verified 11/26/22 11:36 Antibiotics) skin rash aspirin AdvReac stomach Verified 11/26/22 11:36 bleed AND DARK STOOL Food Allergies: Uncoded AdvReac migraine Verified 11/30/22 13:03 meperidine [From Demerol] AdvReac Upset Verified 11/26/22 11:36 Stomach Family History Sister A-fib CAD (coronary artery disease) Grandmother A-fib Surgical History History of appendectomy History of lumpectomy of right breast History of right mastectomy Social History Smoking Status: Never smoker alcohol intake: never substance use type: does not use caffeine: No what type of physical activity do you participate in: none seatbelt use: always do you feel safe at home: Yes ROS ROS Narrative Pertinent positives and pertinent negatives as noted in HPI. All other systems were reviewed and are negative Vital Signs Vital Signs Vital Signs: 02/16/23 18:09 02/16/23 18:54 02/16/23 19:11 Temperature 97.0 F L Temperature Source Temporal Pulse Rate 60 Respiratory Rate 18 Respiratory Effort Normal Non-Labored Respiratory Depth Normal Respiratory Pattern Normal Blood Pressure 140/65 H Blood Pressure Mean 90 Pulse Ox 95 98 Oxygen Delivery Method Room Air Room Air Room Air 02/16/23 20:09 02/16/23 21:35 02/16/23 22:50 Temperature Temperature Source Pulse Rate 58 L 57 L 59 L Respiratory Rate 22 H 20 H 20 H Respiratory Effort Respiratory Depth Respiratory Pattern Blood Pressure 152/68 H 150/66 H 141/66 H Blood Pressure Mean 96 94 91 Pulse Ox 99 96 99 Oxygen Delivery Method Room Air Room Air Room Air Weight Weight: 86.727 kg Body Mass Index (BMI) 36.1 Physical Exam Narrative Physical exam: General: Well-nourished, well-developed. Head: Normocephalic, atraumatic, no tenderness Eyes: Vision is grossly intact. EOMI ENT, no trauma, moist mucous membranes, no rhinorrhea Neck: Nontender, No thyromegaly. CVS: Regular rate and rhythm. S1-S2 present. No murmur, gallop or rub. Respiratory : Right mastectomy. Approaching left upper chest. Lungs diminished. Abdomen: Soft, nontender, nondistended, normal bowel sounds, no masses : Deferred Back: Nontender, no CVA tenderness. Extremities: Nontender full range of motion, no trauma Skin: Normal color, no trauma, abrasions Neuro: Alert, oriented, cranial nerves II through XII grossly intact. Psychiatry: Normal mood. Normal affect. Not depressed. Not anxious. Results Lab / Micro Data 02/16/23 20:20 02/16/23 19:30 Labs: Laboratory Results - last 24 hr 02/16/23 19:30: WBC Cancelled, Corrected WBC Cancelled, RBC Cancelled, Hgb Cancelled, Hct Cancelled, MCV Cancelled, MCH Cancelled, MCHC Cancelled, RDW Std Deviation Cancelled, RDW Coeff of Martin Cancelled, Plt Count Cancelled, MPV Cancelled, Immature Gran % (Auto) Cancelled, Neut % (Auto) Cancelled, Lymph % (Auto) Cancelled, Cotton % (Auto) Cancelled, Eos % (Auto) Cancelled, Baso % (Auto)Cancelled, Absolute Neuts (auto) Cancelled, Absolute Lymphs (auto) Cancelled, Total Counted Cancelled, Neutrophils % (Manual) Cancelled, Band Neutrophils % Cancelled, Lymphocytes % (Manual) Cancelled, Monocytes % (Manual) Cancelled, Eosinophils % (Manual) Cancelled, Basophils % (Manual) Cancelled, Metamyelocytes% Cancelled, Myelocytes % Cancelled, Promyelocytes % Cancelled, Blast Cells % Cancelled, Plasma Cell % (Manual) Cancelled, Other Cells % Cancelled, Nucleated RBC % Cancelled, Nucleated RBCs/100 WBC Cancelled, Differential Comment Cancelled, Diff Path Review Cancelled, Hypersegmented Neuts Cancelled, Atypical Lymphocytes Cancelled, Reactive Lymphocytes Cancelled, Smudge Cells Cancelled, Toxic Granulation Cancelled, Toxic Vacuolation Cancelled, Dohle Bodies Cancelled, Anuel Rods Cancelled, Platelet Estimate Cancelled, Plt Morphology Comment Cancelled, RBC Morphology Cancelled 02/16/23 19:30: RBC Morphology Cancelled, Polychromasia Cancelled, HypochromasiaCancelled, Poikilocytosis Cancelled, Basophilic Stippling Cancelled, Anisocytosis Cancelled, Microcytosis Cancelled, Macrocytosis Cancelled, Spherocytes Cancelled, Sickle Cells Cancelled, Target Cells Cancelled, Tear Drop Cells Cancelled, Ovalocytes Cancelled, Stomatocytes Cancelled, [place] Bodies Cancelled, [place] Cells Cancelled, Bite Cells Cancelled, Crenated Cell Cancelled, Acanthocytes (Spur) Cancelled, Rouleaux Cancelled, Schistocytes Cancelled, Sodium 143, Potassium 4.4, Chloride 109 H, Carbon Dioxide 31.0, Anion Gap 3 L, BUN 12, Creatinine 0.91, Estim Creat Clear Calc 44.03, Est GFR (MDRD) Af Amer 78, Est GFR (MDRD) Non-Af 65, BUN/Creatinine Ratio 13.1, Glucose 90, Calcium 9.6, Troponin I High Sens 9, B-Natriuretic Peptide 92.8 02/16/23 20:20: WBC 4.7, RBC 3.53 L, Hgb 12.7, Hct 39.3, MCV 111.3 H, MCH 36.0 H, MCHC 32.3, RDW Std Deviation 59.1 H, RDW Coeff of Martin 14.3, Plt Count 115 L, MPV 10.5, Immature Gran % (Auto) 0.200, Neut % (Auto) 58.7, Lymph % (Auto) 24.5,Cotton % (Auto) 10.8 H, Eos % (Auto) 5.2 H, Baso % (Auto) 0.6, Absolute Neuts (auto) 2.7, Absolute Lymphs (auto) 1.14, Nucleated RBC % 0 02/16/23 21:05: D-Dimer Quant (PE/DVT) 0.77 H* Radiology Impression Chest X-Ray 02/16/23 21:20 IMPRESSION: No active disease. Electronically Signed: Jacob Dunn MD at 21:48 EDT , Chest CT 02/16/23 22:02 IMPRESSION: 1. 8 mm noncalcified left upper lobe nodule and correlation with prior studies, follow-up CT, PET CT would be useful. 2. Sclerotic lesion of the manubrium and correlation with prior studies or bone scan may be useful. 3. Small hiatal hernia. 4. Severe levoscoliosis of the thoracolumbar spine with deformity of the chest and abdomen. Electronically Signed: Jacob Dunn MD at 22:49 EDT Reading Location ID and State: [facility] / [place] Tel , Service support , Assessment & Plan Assessment/Plan (1) Elevated d-dimer: (2) Acute dyspnea: PLAN: Plan Acute Dyspnea ED labs reviewed showed an elevated D-dimer of 0.77 Difficulty in assessing reports and patient with a difficult vein access. VQ scan ordered. Nurses to attempt to access ports in a.m. Chest CT with metastatic lesions. No pneumonitis seen. Chest CT was independently interpreted, agrees with radiology interpretation. Placed on therapeutic dose of Lovenox Metastatic lung cancer Persistent Follow-up with oncology on discharge. DVT prophylaxis Placed on therapeutic anticoagulation. Time spent in the patient's overall evaluation,decision-making process, review of diagnostic data, adjustment of management, discussion with other providers, nursing nursing and ancillary staff involved in patient's care documentation, 55minutes. Charges/Coding Visit Charges Inpatient E&M: 62212 Init Hosp L3 02/17/23 0942 <Electronically signed by Luis Stratton MD> Cosigner Signature (if applicable): CC: Dr. Mitch Mejia MD; Dr. Luis Stratton MD~ Signed [facility] Work Phone: [phone]) 733-825009-14-2023 Discharge summary Author Gurvinder Dill [facility] February 17, 2023 12:01am Note Date/Time February 16, 2023 7:14pm [facility] Medical Records Department [address] [facility] [place] [address] Emergency Department Summary 02/16/23 MR#: [id number] Acct: [id number] Name: RENATE CHRISTIANSEN Rep #:[id number] : 1955 67 From: Gurvinder Dill DO PCP: Dr. Mitch Mejia MD Status:REG ER Location: ED HPI History of Present Illness Chief Complaint: Shortness of Breath Detail of Chief Complaint: Shortness of breath Informant: patient Narrative Narrative: Patient presents with progressive shortness of breath over the last 2 weeks especially with exertion. She denies any chest pain. Patient currently being treated for metastatic breast cancer with mets to the lung. Her last chemo was January 13. Patient was advised by her oncologist to get evaluated in with concern for possible PE or pneumonitis related to her chemo. Patient denies anychest pain. She had no fever. She denies significant cough. [facility] Medical History (Updated 02/16/23 @ 23:[address] Gurvinder Dill, DO) Breast cancer metastasized to bone Breast cancer metastasized to lung Breast cancer, right breast Chemotherapy management, encounter for Non-ischemic cardiomyopathy Obesity Home Medications naproxen sodium 220 mg capsule 220 mg PO Q8H PRN PRN Pain Or Fever 03/29/19 [History Last Taken Unknown] loperamide 2 mg capsule (Imodium A-D) 2 mg PO Q6H PRN 01/22/20 [History Last Taken Unknown] loratadine 10 mg tablet (Claritin) 10 mg PO DAILY 01/22/20 [History Last Taken Unknown] metoprolol tartrate 25 mg tablet 25 mg PO BID 01/22/20 [History Last Taken Unknown] pregabalin 150 mg capsule 150 mg PO BID 09/15/21 [History Last Taken Unknown] multivitamin 1 tab PO DAILY 11/26/22 [History Last Taken Unknown] losartan 100 mg tablet 100 mg PO QDAY HTN #90 tabs 01/20/23 [Rx Last Taken Unknown] acetaminophen 325 mg tablet (Tylenol) 325 mg PO DAILY 02/16/23 [History Last Taken Unknown] diphenhydramine HCl 25 mg capsule (Benadryl) 25 mg PO QHS 02/16/23 [History Last Taken Unknown] Allergy/AdvReac Type Severity Reaction Status Date / Time acetaminophen [From Percocet] Allergy hives and Verified 11/26/22 11:36 nausea amoxicillin Allergy Fever and Verified 11/26/22 11:36 skin rash Cephalosporins Allergy Fever and Verified 11/26/22 11:36 skin rash ciprofloxacin [From Cipro] Allergy Fever and Verified 11/26/22 11:36 skin rash codeine Allergy Fever and Verified 11/26/22 11:36 skin rash erythromycin base Allergy Fever and Verified 11/26/22 11:36 skin rash hydrocodone [From Sully] Allergy hives and Verified 11/26/22 11:36 nausea latex Allergy Rash Verified 11/26/22 11:36 nalbuphine [From Nubain] Allergy Fever and Verified 11/26/22 11:36 skin rash oxycodone [From Percocet] Allergy hives and Verified 11/26/22 11:36 nausea prednisone Allergy hives Verified 11/26/22 11:36 with blood underneath Sulfa (Sulfonamide Allergy Fever and Verified 11/26/22 11:36 Antibiotics) skin rash aspirin AdvReac stomach Verified 11/26/22 11:36 bleed AND DARK STOOL Food Allergies: Uncoded AdvReac migraine Verified 11/30/22 13:03 meperidine [From Demerol] AdvReac Upset Verified 11/26/22 11:36 Stomach Family History Sister A-fib CAD (coronary artery disease) Grandmother A-fib Surgical History History of appendectomy History of lumpectomy of right breast History of right mastectomy Social History Smoking Status: Never smoker alcohol intake: never substance use type: does not use caffeine: No what type of physical activity do you participate in: none seatbelt use: always do you feel safe at home: Yes ROS ROS ED Review of Systems ROS Unobtainable: other Constitutional Constitutional ED: Reports lethargy; Denies chills, fever(s), sweats or weight loss Eyes Eyes: Denies blurry vision, change in vision or diplopia ENT ENT ED: Denies rhinorrhea or sore throat Cardiovascular Cardiovascular: Denies chest pain, orthopnea or racing heartbeat Respiratory/Chest Respiratory/Chest: Reports dyspnea and dyspnea on exertion; Denies cough, orthopnea or sputum Gastrointestinal Gastrointestinal: Denies abdominal pain, diarrhea, nausea or vomiting Genitourinary Genitourinary ED: Denies dysuria, hematuria or urinary frequency Musculoskeletal Musculoskeletal: Denies arthralgias, back pain, myalgias or neck pain Integumentary Denies abscess, Abrasions or rash Neurologic Neurologic: Denies headache(s) or weakness Psychiatric Psychiatric: Denies anxiety, depression or suicidal thoughts Endocrine Endocrinology: Denies polydipsia, polyphagia or polyuria Hematologic/Lymphatic Hematologic/Lymphatic: Denies easy bleeding, easy bruising or lymphadenopathy Allergic/Immunologic Allergic/Immunologic ED: Denies mouth swelling, tongue swelling or urticaria EXAM Physical Exam Narrative Exam Narrative: Patient presents with progressive exertional dyspnea. In the differential wouldbe PE versus pneumonitis versus CHF or acute coronary syndrome. I feel acute coronary syndrome less likely. Const Vital Signs: 02/16/23 18:09 02/16/23 18:54 02/16/23 19:11 Temperature 97.0 F L Temperature Source Temporal Pulse Rate 60 Respiratory Rate 18 Respiratory Effort Normal Non-Labored Respiratory Depth Normal Respiratory Pattern Normal Blood Pressure 140/65 H Blood Pressure Mean 90 Pulse Ox 95 98 Oxygen Delivery Method Room Air Room Air Room Air 02/16/23 20:09 02/16/23 21:35 02/16/23 22:50 Temperature Temperature Source Pulse Rate 58 L 57 L 59 L Respiratory Rate 22 H 20 H 20 H Respiratory Effort Respiratory Depth Respiratory Pattern Blood Pressure 152/68 H 150/66 H 141/66 H Blood Pressure Mean 96 94 91 Pulse Ox 99 96 99 Oxygen Delivery Method Room Air Room Air Room Air Positive well nourished and well developed General Appearance ED: well developed and NAD HEENT Reports TM's clear and moist mucous membranes normocephalic and atraumatic; Negative for trauma or tenderness Tympanic Membrane ED: Yes TM's clear Eyes PERRL and EOMs intact bilaterally General Eye ED: Negative for pale conjunctiva or scleral icterus Neck no lymphadenopathy, supple and no JVD General: Negative for tenderness Chest Wall inspection of chest normal and palpation of chest normal Chest: Negative for tenderness Resp normal respiratory effort and clear to auscultation bilaterally Effort and Inspection: Negative for respiratory distress or pain with movement Auscultation: Negative for rhonchi, wheezes or diminished lung sounds Cardio regular rate, regular rhythm, S1 normal heart sound, S2 normal heart sound and no murmurs Peripheral Pulses: pulses 2+ throughout GI normal to inspection, nondistended, normoactive bowel sounds, soft to palpation,non-tender, non-distended and no masses Back/Spine no CVA tenderness and no thoracic nor lumbar tenderness Extremity normal to inspection General Extremety ED: Negative for edema General Extremity: Negative for edema Neuro oriented x3, CN's II-XII intact bilaterally, no sensory deficits noted and gait normal Sensorium / Orientation: awake, alert, oriented to person, oriented to place andoriented to time Motor Exam: strength 5/5 throughout and strength abnormal Psych mental status grossly normal Skin no rashes or lesions noted and no wounds MDM MDM MDM Narrative Medical decision making narrative: Patient with 2-week history of progressive exertional dyspnea with history of breast cancer with metastasis to the lung. Patient's oncologist concerned aboutpossibility for PE or pneumonitis related to the chemotherapy. I was asked to obtain a CT of the chest to rule out PE. On arrival IV line established. Patient placed on color television console monitor. EKG obtained showed a sinus rhythm with a rate of 58 bpm with no acute ST segment changes. CBC with differential white count 4.7 with hemoglobin 12.7 and platelet count of 115. Chemistries unremarkable. Troponin normal at 9 and BNP was normal at 93. Nursing staff could not obtain peripheral IV to perform CTA. Patient does have a PowerPort which was accessed and while in CT the tech was having issues injecting through the port and became concerned that there would not be an adequate study and there was concern that there might be damage to the port. This point I had a discussion with the patient and she would like to try to go home and follow-up with [facility] because they have always accessed her port and given her IV contrast to perform CTs every several months. I discussed with Dr. Rip Rivers and he is concerned that he may not be able to get a scan tomorrow based on availability as an outpatient. I did do a D-dimer and it was elevated at 0.77. We obtained a CT scan without contrast to rule out pneumonitis Dr. Rivers's request. This did not show any evidence of pneumonitis. This point recommended admission for possible repeat attempt at CTA tomorrow versus VQ scanto rule out PE. I did give patient one-time dose of Lovenox. Will discuss casewith hospitalist. Lab Data Attestation: I reviewed the patient's lab results. Labs: Laboratory Results - last 24 hr 02/16/23 02/16/23 02/16/23 19:30 19:30 20:20 WBC Cancelled 4.7 Corrected WBC Cancelled RBC Cancelled 3.53 L Hgb Cancelled 12.7 Hct Cancelled 39.3 MCV Cancelled 111.3 H MCH Cancelled 36.0 H MCHC Cancelled 32.3 RDW Std Deviation Cancelled 59.1 H RDW Coeff of Martin Cancelled 14.3 Plt Count Cancelled 115 L MPV Cancelled 10.5 Immature Gran % (Auto) Cancelled 0.200 Neut % (Auto) Cancelled 58.7 Lymph % (Auto) Cancelled 24.5 Cotton % (Auto) Cancelled 10.8 H Eos % (Auto) Cancelled 5.2 H Baso % (Auto) Cancelled 0.6 Absolute Neuts (auto) Cancelled 2.7 Absolute Lymphs (auto) Cancelled 1.14 Total Counted Cancelled Neutrophils % (Manual) Cancelled Band Neutrophils % Cancelled Lymphocytes % (Manual) Cancelled Monocytes % (Manual) Cancelled Eosinophils % (Manual) Cancelled Basophils % (Manual) Cancelled Metamyelocytes % Cancelled Myelocytes % Cancelled Promyelocytes % Cancelled Blast Cells % Cancelled Plasma Cell % (Manual) Cancelled Other Cells % Cancelled Nucleated RBC % Cancelled 0 Nucleated RBCs/100 WBC Cancelled Differential Comment Cancelled Diff Path Review Cancelled Hypersegmented Neuts Cancelled Atypical Lymphocytes Cancelled Reactive Lymphocytes Cancelled Smudge Cells Cancelled Toxic Granulation Cancelled Toxic Vacuolation Cancelled Dohle Bodies Cancelled Anuel Rods Cancelled Platelet Estimate Cancelled Plt Morphology Comment Cancelled RBC Morphology Cancelled Cancelled Polychromasia Cancelled Hypochromasia Cancelled Poikilocytosis Cancelled Basophilic Stippling Cancelled Anisocytosis Cancelled Microcytosis Cancelled Macrocytosis Cancelled Spherocytes Cancelled Sickle Cells Cancelled Target Cells Cancelled Tear Drop Cells Cancelled Ovalocytes Cancelled Stomatocytes Cancelled [place] Bodies Cancelled [place] Cells Cancelled Bite Cells Cancelled Crenated Cell Cancelled Acanthocytes (Spur) Cancelled Rouleaux Cancelled Schistocytes Cancelled D-Dimer Quant (PE/DVT) Sodium 143 Potassium 4.4 Chloride 109 H Carbon Dioxide 31.0 Anion Gap 3 L BUN 12 Creatinine 0.91 Estim Creat Clear Calc 44.03 Est GFR (MDRD) Af Amer 78 Est GFR (MDRD) Non-Af 65 BUN/Creatinine Ratio 13.1 Glucose 90 Calcium 9.6 Troponin I High Sens 9 B-Natriuretic Peptide 92.8 09/13/23 21:05 WBC Corrected WBC RBC Hgb Hct MCV MCH MCHC RDW Std Deviation RDW Coeff of Martin Plt Count MPV Immature Gran % (Auto) Neut % (Auto) Lymph % (Auto) Cotton % (Auto) Eos % (Auto) Baso % (Auto) Absolute Neuts (auto) Absolute Lymphs (auto) Total Counted Neutrophils % (Manual) Band Neutrophils % Lymphocytes % (Manual) Monocytes % (Manual) Eosinophils % (Manual) Basophils % (Manual) Metamyelocytes % Myelocytes % Promyelocytes % Blast Cells % Plasma Cell % (Manual) Other Cells % Nucleated RBC % Nucleated RBCs/100 WBC Differential Comment Diff Path Review Hypersegmented Neuts Atypical Lymphocytes Reactive Lymphocytes Smudge Cells Toxic Granulation Toxic Vacuolation Dohle Bodies Anuel Rods Platelet Estimate Plt Morphology Comment RBC Morphology Polychromasia Hypochromasia Poikilocytosis Basophilic Stippling Anisocytosis Microcytosis Macrocytosis Spherocytes Sickle Cells Target Cells Tear Drop Cells Ovalocytes Stomatocytes [place] Bodies [place] Cells Bite Cells Crenated Cell Acanthocytes (Spur) Rouleaux Schistocytes D-Dimer Quant (PE/DVT) 0.77 H* Sodium Potassium Chloride Carbon Dioxide Anion Gap BUN Creatinine Estim Creat Clear Calc Est GFR (MDRD) Af Amer Est GFR (MDRD) Non-Af BUN/Creatinine Ratio Glucose Calcium Troponin I High Sens B-Natriuretic Peptide Radiography Chest X-Ray - ED: 1 View Diagnostic Testing: Clinical Impression(s) from Imaging Studies Chest X-Ray 02/16/23 21:20 IMPRESSION: No active disease. Electronically Signed: Jacob Dunn MD at 21:48 EDT , Chest CT 02/16/23 22:02 IMPRESSION: 1. 8 mm noncalcified left upper lobe nodule and correlation with prior studies, follow-up CT, PET CT would be useful. 2. Sclerotic lesion of the manubrium and correlation with prior studies or bone scan may be useful. 3. Small hiatal hernia. 4. Severe levoscoliosis of the thoracolumbar spine with deformity of the chest and abdomen. Electronically Signed: Jacob Dunn MD at 22:49 EDT , 1 view chest x-ray obtained interpreted by myself as no evidence of infiltrate or pneumothorax or acute disease process. There was a port in the left chest. Radiology in agreement. EKG Initial EKG: Attestation: I personally reviewed and interpreted this EKG as follows: Comments: Sinus rhythm with a rate of 58 bpm with no acute ST segment changes Discharge Plan Dx/Rx/DC Orders Clinical Impression: Acute dyspnea, Elevated d-dimer, Breast cancer metastasized to lung Disposition Disposition: [facility] What to do if you have Problems For any increased pain, shortness of breath, bleeding, nausea or vomiting, chestpain, or any unexpected problems, contact your Primary Care Provider. Call [facility] ([phone]) or report to the closest Emergency Room. Call 911 if necessary. 02/17/23 0001 <Electronically signed by Gurvinder Dill DO> Cosigner Signature (if applicable): CC: Dr. Mitch Mejia MD ~ Signed [facility] Work Phone: [phone]) 984-694909-13-2023 Discharge summary Author [facility] February 17, 2023 12:01am Note Date/Time February 16, 2023 7:14pm [facility] Medical Records Department [address] [place] [id number] Emergency Department Summary 02/16/23 MR#: [id number] Acct: [id number] Name: RENATE CHRISTIANSEN Rep #:[id number] : 1955 67 From: Gurvinder Dill DO PCP: Dr. Mitch Mejia MD Status:REG ER Location: ED HPI History of Present Illness Chief Complaint: Shortness of Breath Detail of Chief Complaint: Shortness of breath Informant: patient Narrative Narrative: Patient presents with progressive shortness of breath over the last 2 weeks especially with exertion. She denies any chest pain. Patient currently being treated for metastatic breast cancer with mets to the lung. Her last chemo was January 13. Patient was advised by her oncologist to get evaluated in with concern for possible PE or pneumonitis related to her chemo. Patient denies anychest pain. She had no fever. She denies significant cough. [facility] Medical History (Updated 02/16/23 @ 23:[address] Gurvinder Dill, DO) Breast cancer metastasized to bone Breast cancer metastasized to lung Breast cancer, right breast Chemotherapy management, encounter for Non-ischemic cardiomyopathy Obesity Home Medications naproxen sodium 220 mg capsule 220 mg PO Q8H PRN PRN Pain Or Fever 03/29/19 [History Last Taken Unknown] loperamide 2 mg capsule (Imodium A-D) 2 mg PO Q6H PRN 01/22/20 [History Last Taken Unknown] loratadine 10 mg tablet (Claritin) 10 mg PO DAILY 01/22/20 [History Last Taken Unknown] metoprolol tartrate 25 mg tablet 25 mg PO BID 01/22/20 [History Last Taken Unknown] pregabalin 150 mg capsule 150 mg PO BID 09/15/21 [History Last Taken Unknown] multivitamin 1 tab PO DAILY 11/26/22 [History Last Taken Unknown] losartan 100 mg tablet 100 mg PO QDAY HTN #90 tabs 01/20/23 [Rx Last Taken Unknown] acetaminophen 325 mg tablet (Tylenol) 325 mg PO DAILY 02/16/23 [History Last Taken Unknown] diphenhydramine HCl 25 mg capsule (Benadryl) 25 mg PO QHS 02/16/23 [History Last Taken Unknown] Allergy/AdvReac Type Severity Reaction Status Date / Time acetaminophen [From Percocet] Allergy hives and Verified 11/26/22 11:36 nausea amoxicillin Allergy Fever and Verified 11/26/22 11:36 skin rash Cephalosporins Allergy Fever and Verified 11/26/22 11:36 skin rash ciprofloxacin [From Cipro] Allergy Fever and Verified 11/26/22 11:36 skin rash codeine Allergy Fever and Verified 11/26/22 11:36 skin rash erythromycin base Allergy Fever and Verified 11/26/22 11:36 skin rash hydrocodone [From Sully] Allergy hives and Verified 11/26/22 11:36 nausea latex Allergy Rash Verified 11/26/22 11:36 nalbuphine [From Nubain] Allergy Fever and Verified 11/26/22 11:36 skin rash oxycodone [From Percocet] Allergy hives and Verified 11/26/22 11:36 nausea prednisone Allergy hives Verified 11/26/22 11:36 with blood underneath Sulfa (Sulfonamide Allergy Fever and Verified 11/26/22 11:36 Antibiotics) skin rash aspirin AdvReac stomach Verified 11/26/22 11:36 bleed AND DARK STOOL Food Allergies: Uncoded AdvReac migraine Verified 11/30/22 13:03 meperidine [From Demerol] AdvReac Upset Verified 11/26/22 11:36 Stomach Family History Sister A-fib CAD (coronary artery disease) Grandmother A-fib Surgical History History of appendectomy History of lumpectomy of right breast History of right mastectomy Social History Smoking Status: Never smoker alcohol intake: never substance use type: does not use caffeine: No what type of physical activity do you participate in: none seatbelt use: always do you feel safe at home: Yes ROS ROS ED Review of Systems ROS Unobtainable: other Constitutional Constitutional ED: Reports lethargy; Denies chills, fever(s), sweats or weight loss Eyes Eyes: Denies blurry vision, change in vision or diplopia ENT ENT ED: Denies rhinorrhea or sore throat Cardiovascular Cardiovascular: Denies chest pain, orthopnea or racing heartbeat Respiratory/Chest Respiratory/Chest: Reports dyspnea and dyspnea on exertion; Denies cough, orthopnea or sputum Gastrointestinal Gastrointestinal: Denies abdominal pain, diarrhea, nausea or vomiting Genitourinary Genitourinary ED: Denies dysuria, hematuria or urinary frequency Musculoskeletal Musculoskeletal: Denies arthralgias, back pain, myalgias or neck pain Integumentary Denies abscess, Abrasions or rash Neurologic Neurologic: Denies headache(s) or weakness Psychiatric Psychiatric: Denies anxiety, depression or suicidal thoughts Endocrine Endocrinology: Denies polydipsia, polyphagia or polyuria Hematologic/Lymphatic Hematologic/Lymphatic: Denies easy bleeding, easy bruising or lymphadenopathy Allergic/Immunologic Allergic/Immunologic ED: Denies mouth swelling, tongue swelling or urticaria EXAM Physical Exam Narrative Exam Narrative: Patient presents with progressive exertional dyspnea. In the differential wouldbe PE versus pneumonitis versus CHF or acute coronary syndrome. I feel acute coronary syndrome less likely. Const Vital Signs: 02/16/23 18:09 02/16/23 18:54 02/16/23 19:11 Temperature 97.0 F L Temperature Source Temporal Pulse Rate 60 Respiratory Rate 18 Respiratory Effort Normal Non-Labored Respiratory Depth Normal Respiratory Pattern Normal Blood Pressure 140/65 H Blood Pressure Mean 90 Pulse Ox 95 98 Oxygen Delivery Method Room Air Room Air Room Air 02/16/23 20:09 02/16/23 21:35 02/16/23 22:50 Temperature Temperature Source Pulse Rate 58 L 57 L 59 L Respiratory Rate 22 H 20 H 20 H Respiratory Effort Respiratory Depth Respiratory Pattern Blood Pressure 152/68 H 150/66 H 141/66 H Blood Pressure Mean 96 94 91 Pulse Ox 99 96 99 Oxygen Delivery Method Room Air Room Air Room Air Positive well nourished and well developed General Appearance ED: well developed and NAD HEENT Reports TM's clear and moist mucous membranes normocephalic and atraumatic; Negative for trauma or tenderness Tympanic Membrane ED: Yes TM's clear Eyes PERRL and EOMs intact bilaterally General Eye ED: Negative for pale conjunctiva or scleral icterus Neck no lymphadenopathy, supple and no JVD General: Negative for tenderness Chest Wall inspection of chest normal and palpation of chest normal Chest: Negative for tenderness Resp normal respiratory effort and clear to auscultation bilaterally Effort and Inspection: Negative for respiratory distress or pain with movement Auscultation: Negative for rhonchi, wheezes or diminished lung sounds Cardio regular rate, regular rhythm, S1 normal heart sound, S2 normal heart sound and no murmurs Peripheral Pulses: pulses 2+ throughout GI normal to inspection, nondistended, normoactive bowel sounds, soft to palpation,non-tender, non-distended and no masses Back/Spine no CVA tenderness and no thoracic nor lumbar tenderness Extremity normal to inspection General Extremety ED: Negative for edema General Extremity: Negative for edema Neuro oriented x3, CN's II-XII intact bilaterally, no sensory deficits noted and gait normal Sensorium / Orientation: awake, alert, oriented to person, oriented to place andoriented to time Motor Exam: strength 5/5 throughout and strength abnormal Psych mental status grossly normal Skin no rashes or lesions noted and no wounds MDM MDM MDM Narrative Medical decision making narrative: Patient with 2-week history of progressive exertional dyspnea with history of breast cancer with metastasis to the lung. Patient's oncologist concerned aboutpossibility for PE or pneumonitis related to the chemotherapy. I was asked to obtain a CT of the chest to rule out PE. On arrival IV line established. Patient placed on color television console monitor. EKG obtained showed a sinus rhythm with a rate of 58 bpm with no acute ST segment changes. CBC with differential white count 4.7 with hemoglobin 12.7 and platelet count of 115. Chemistries unremarkable. Troponin normal at 9 and BNP was normal at 93. Nursing staff could not obtain peripheral IV to perform CTA. Patient does have a PowerPort which was accessed and while in CT the tech was having issues injecting through the port and became concerned that there would not be an adequate study and there was concern that there might be damage to the port. This point I had a discussion with the patient and she would like to try to go home and follow-up with [facility] because they have always accessed her port and given her IV contrast to perform CTs every several months. I discussed with Dr. Rip Rivers and he is concerned that he may not be able to get a scan tomorrow based on availability as an outpatient. I did do a D-dimer and it was elevated at 0.77. We obtained a CT scan without contrast to rule out pneumonitis Dr. Rivers's request. This did not show any evidence of pneumonitis. This point recommended admission for possible repeat attempt at CTA tomorrow versus VQ scanto rule out PE. I did give patient one-time dose of Lovenox. Will discuss casewith hospitalist. Lab Data Attestation: I reviewed the patient's lab results. Labs: Laboratory Results - last 24 hr 02/16/23 02/16/23 02/16/23 19:30 19:30 20:20 WBC Cancelled 4.7 Corrected WBC Cancelled RBC Cancelled 3.53 L Hgb Cancelled 12.7 Hct Cancelled 39.3 MCV Cancelled 111.3 H MCH Cancelled 36.0 H MCHC Cancelled 32.3 RDW Std Deviation Cancelled 59.1 H RDW Coeff of Martin Cancelled 14.3 Plt Count Cancelled 115 L MPV Cancelled 10.5 Immature Gran % (Auto) Cancelled 0.200 Neut % (Auto) Cancelled 58.7 Lymph % (Auto) Cancelled 24.5 Cotton % (Auto) Cancelled 10.8 H Eos % (Auto) Cancelled 5.2 H Baso % (Auto) Cancelled 0.6 Absolute Neuts (auto) Cancelled 2.7 Absolute Lymphs (auto) Cancelled 1.14 Total Counted Cancelled Neutrophils % (Manual) Cancelled Band Neutrophils % Cancelled Lymphocytes % (Manual) Cancelled Monocytes % (Manual) Cancelled Eosinophils % (Manual) Cancelled Basophils % (Manual) Cancelled Metamyelocytes % Cancelled Myelocytes % Cancelled Promyelocytes % Cancelled Blast Cells % Cancelled Plasma Cell % (Manual) Cancelled Other Cells % Cancelled Nucleated RBC % Cancelled 0 Nucleated RBCs/100 WBC Cancelled Differential Comment Cancelled Diff Path Review Cancelled Hypersegmented Neuts Cancelled Atypical Lymphocytes Cancelled Reactive Lymphocytes Cancelled Smudge Cells Cancelled Toxic Granulation Cancelled Toxic Vacuolation Cancelled Dohle Bodies Cancelled Anuel Rods Cancelled Platelet Estimate Cancelled Plt Morphology Comment Cancelled RBC Morphology Cancelled Cancelled Polychromasia Cancelled Hypochromasia Cancelled Poikilocytosis Cancelled Basophilic Stippling Cancelled Anisocytosis Cancelled Microcytosis Cancelled Macrocytosis Cancelled Spherocytes Cancelled Sickle Cells Cancelled Target Cells Cancelled Tear Drop Cells Cancelled Ovalocytes Cancelled Stomatocytes Cancelled [place] Bodies Cancelled [place] Cells Cancelled Bite Cells Cancelled Crenated Cell Cancelled Acanthocytes (Spur) Cancelled Rouleaux Cancelled Schistocytes Cancelled D-Dimer Quant (PE/DVT) Sodium 143 Potassium 4.4 Chloride 109 H Carbon Dioxide 31.0 Anion Gap 3 L BUN 12 Creatinine 0.91 Estim Creat Clear Calc 44.03 Est GFR (MDRD) Af Amer 78 Est GFR (MDRD) Non-Af 65 BUN/Creatinine Ratio 13.1 Glucose 90 Calcium 9.6 Troponin I High Sens 9 B-Natriuretic Peptide 92.8 02/16/23 21:05 WBC Corrected WBC RBC Hgb Hct MCV MCH MCHC RDW Std Deviation RDW Coeff of Martin Plt Count MPV Immature Gran % (Auto) Neut % (Auto) Lymph % (Auto) Cotton % (Auto) Eos % (Auto) Baso % (Auto) Absolute Neuts (auto) Absolute Lymphs (auto) Total Counted Neutrophils % (Manual) Band Neutrophils % Lymphocytes % (Manual) Monocytes % (Manual) Eosinophils % (Manual) Basophils % (Manual) Metamyelocytes % Myelocytes % Promyelocytes % Blast Cells % Plasma Cell % (Manual) Other Cells % Nucleated RBC % Nucleated RBCs/100 WBC Differential Comment Diff Path Review Hypersegmented Neuts Atypical Lymphocytes Reactive Lymphocytes Smudge Cells Toxic Granulation Toxic Vacuolation Dohle Bodies Anuel Rods Platelet Estimate Plt Morphology Comment RBC Morphology Polychromasia Hypochromasia Poikilocytosis Basophilic Stippling Anisocytosis Microcytosis Macrocytosis Spherocytes Sickle Cells Target Cells Tear Drop Cells Ovalocytes Stomatocytes [place] Bodies [place] Cells Bite Cells Crenated Cell Acanthocytes (Spur) Rouleaux Schistocytes D-Dimer Quant (PE/DVT) 0.77 H* Sodium Potassium Chloride Carbon Dioxide Anion Gap BUN Creatinine Estim Creat Clear Calc Est GFR (MDRD) Af Amer Est GFR (MDRD) Non-Af BUN/Creatinine Ratio Glucose Calcium Troponin I High Sens B-Natriuretic Peptide Radiography Chest X-Ray - ED: 1 View Diagnostic Testing: Clinical Impression(s) from Imaging Studies Chest X-Ray 02/16/23 21:20 IMPRESSION: No active disease. Electronically Signed: Jacob Dunn MD at 21:48 EDT , Chest CT 02/16/23 22:02 IMPRESSION: 1. 8 mm noncalcified left upper lobe nodule and correlation with prior studies, follow-up CT, PET CT would be useful. 2. Sclerotic lesion of the manubrium and correlation with prior studies or bone scan may be useful. 3. Small hiatal hernia. 4. Severe levoscoliosis of the thoracolumbar spine with deformity of the chest and abdomen. Electronically Signed: Jacob Dunn MD at 22:49 EDT , 1 view chest x-ray obtained interpreted by myself as no evidence of infiltrate or pneumothorax or acute disease process. There was a port in the left chest. Radiology in agreement. EKG Initial EKG: Attestation: I personally reviewed and interpreted this EKG as follows: Comments: Sinus rhythm with a rate of 58 bpm with no acute ST segment changes Discharge Plan Dx/Rx/DC Orders Clinical Impression: Acute dyspnea, Elevated d-dimer, Breast cancer metastasized to lung Disposition Disposition: [facility] Care [facility] What to do if you have Problems For any increased pain, shortness of breath, bleeding, nausea or vomiting, chestpain, or any unexpected problems, contact your Primary Care Provider. Call [facility] ([phone]) or report to the closest Emergency Room. Call 911 if necessary. 02/17/23 0001 <Electronically signed by Gurvinder Dill DO> Cosigner Signature (if applicable): CC: Dr. Mitch Mejia MD ~ Signed [facility] Work Phone: [phone]) 228-508109-13-2023 Miscellaneous Notes* Telephone Encounter - Rip Rivers DO - 02/16/2023 6:29 PM EDT Thank you. I spoke with Dr. Ferraro in the ED. Rip Rivers DO * Telephone Encounter - Carla Almonte RN - 02/16/2023 4:58 PM EDT Patient stated she has had increased SOB if she does extensive walking or overexerting herself she has increased SOB. Patient stated she does not have a heavy chest or chest pressure, I just have difficulty breathing. Patient stated she will take deep breaths to be able to breathe and she feels like she is going to pee my pants. Patient denies any recent respiratory illnesses or colds, irregular heartbeats, dizziness with standing, pain with breathing, cough, wheezing, or unusual swelling. Patient does not have a pulse oximeter at home. Patient stated her hands feel tight and my neuropathy is a little bit worse than it has been. Checked BP while on the phone. BP: 110/64 Pulse 62 Disposition: per Dr. Rivers, patient directed to: Emergency Room due to the issue being urgent. Per Dr. Rivers patient should proceed to ED. Patient sent to ED to rule out pneumonitis from chemotherapy or PE. Carla Almonte, RN * Telephone Encounter - Jazlyn Harding LPN - 02/16/2023 4:49 PM EDT Over the last 2 weeks patient c/o worsening SOB on exertion. Last treatment was 01/13/2023. Scheduled to begin radiation on 02/21/2023. Patient denies chest pain, pain on inspiration, coughing, congestion, sore throat, palpitations, fever, and swelling. Patient did state she feels that her neuropathy in her hands is worse today. Please contact patient at home number. Jazlyn Harding LPN * Telephone Encounter - Alexia Stephens - 02/16/2023 4:39 PM EDT Patient called in wanting to let someone know about something prior to starting radiation. Patient didn't get last infusion and steroid due to starting radiation and I now having some SOB symptoms. Transferred to Nurse. [facility]* Mady Medina RN - 02/09/2023 2:28 PM EDT Radiation Therapy - Patient Education Note PATIENT NAME: Renate Christiansen PATIENT February 09, 2023 [facility] FACILITY/LOCATION: [place] READINESS TO LEARN Cognitive Ability: Alert and oriented Motivation to learn: Eager Interested Family Support: High - Very involved in pt care Instruction provide to: Patient and family member Patient learns best by: Multiple Methods Factors effecting learning: None Physical limitations effecting learning: None LEARNING RESPONSE Diagnosis: Pt simulated today for radiation therapy to left lung. Education Topic/Teaching Points: Radiation therapy, Side effects, and OTV: Method of instruction: Teach Back skin care Individual instruction Written instruction - handouts Verbal instruction Patient /Family response: Patient and family verbalized understanding of radiation treatments, sideeffects, OTV, and transportation. Follow-up plan: Patient instructed to call with any further issues Contact information given. Supplemental material: Informational handouts on Department phone list, Esophagus Packet, Fatigue, and [place] instructions, XRT sheet and Aquaphor handout. Referral (recommendation): None, Pt denied need for social work, van service, and spa manager/esthetician. Was approved? unknown Signed by: Mady Medina RN documented in this encounterWestern [facility]09-06-[facility]23 History of Present illness Narrative* Meenu Garay MD, MD - 02/09/2023 12:00 AM EDT RENATE CHRISTIANSEN [id number] 02/09/2023 [facility] Department of Radiation Oncology Treatment Planning Note For reasons stated in the consult note, Renate Christiansen is a candidate for radiation therapy. Based on review and interpretation of the relevant diagnostic studies together with the exam findings, Renate Christiansen was simulated on 02/09/2023 at which time the target volume and/or requisite barnes were delineated, as indicated in the simulation note, to be treated according to the prescription. An ITV was created from all the phases of respiratory motion captured by the 4DCT image sets. Motion management allowed for design of patient specific planning target volume and reduced the radiationexposure to normal tissues. The treatment target and organs at risk were contoured on the simulation scan. Special consideration to these and other structures was given in light of the potential for increased toxicities of stereotactic body radiation therapy (SBRT). After reviewing multiple treatment plans with dosimetry, thebest plan was approved to deliver the prescribed course of radiation to the target area using inverse planning to allow for the best isodose distribution, treating to the 73.2% isodose line with 6MV FFF and 2 barnes. Custom MLC and asym jaws for IMRT were the treatment devices used to shape/modify the beams. Limiting dose to normal tissue was confirmed upon review of the calculated dose volume histogram. IMRT planning was used because it best met the dose/volume constraints for the organs at risk for this patient, better than what could be achieved using conventional or 3D planning. The specific doserequirements for the PTV, organs at risk and dose-volume histograms are contained in this treatmentplan and/or elsewhere in the medical record. A completed summary of this plan dated 02/18/2023 incorporated herein by reference includes dose, beam arrangements, energy, blocking, isodose distribution, and/or ports and DVH. Electronically Signed Meenu Garay M.D. 0:52 AM documented in this encounterWestern Reserve Hospital09-06-2023 History of Present illness Narrative* Meenu Garay MD, MD - 02/09/2023 12:00 AM EDT RENATE CHRISTIANSEN [id number] 02/09/2023 [facility] Department of Radiation Oncology [facility] RADIATION ONCOLOGY SIMULATION NOTE DATE OF SIMULATION: 02/09/2023 MACHINE: Caspida Definition CT Simulator Diagnosis: Metastatic breast cancer on Enhertu with solitary progression in the left upper lung nodule. AREA:Left Upper Lung. PATIENT POSITION: Supine. CONTRAST: None PROTOCOL: None BLOCKING: Custom blocking to be determined at treatment planning. FIXATION DEVICE: In order to achieve accurate and reproducible treatments, the patient is to be immobilized with SBRT CIVCO system, custom vac bag, and compression belt. PROCEDURE: A time-out was conducted and recorded by the therapist. Patient was simulated on the CT scanner for external beam radiation therapy. Treatment site was marked by the simulation therapist. ASSESSMENT/PLAN: Patient tolerated simulation procedure well. Treatments will be initiated after treatment planning. The patient is scheduled for a verification simulation on the treatment machine toensure proper set-up and field arrangement is correct prior to the first treatment of primary and boost barnes if applicable. Electronically Signed Meenu Garay M.D./[place] 0:51 AM documented in this encounterWestern Reserve Hospital08-31-2023 Nurse Note* Mady Medina RN - 02/03/2023 9:36 AM EDT Radiation Therapy - Nursing Note (Consult) PATIENT NAME: Renate Christiansen PATIENT February 03, 2023 [facility] FACILITY/LOCATION: [place] Chief Complaint: consult Reason for visit: Consult. Referring physician: Internal provider Dr Rivers Subjective Data: no complaints Additional Data Do you want to see a Recreation Supervisor? No Are you interested in information about fertility? No Status: Post-menopausal Stress Scale: On a scale of 0 to 10, what number best describes how much distress you have experienced in the past week?(0 being no distress and 10 being extreme distress) 10 Social work notified: Pt denied need to see social work administrator at this time. SIGNED by: Mady Medina RN documented in this encounterWestern Reserve Hospital08-31-2023 History of Present illness Narrative* Meenu Garay MD, MD - 02/03/2023 9:33 AM EDT Radiation Oncology - New Patient/Consult Note PATIENT NAME: Renate Christiansen PATIENT REQUESTING PROVIDER: Dr. Rip Rivers DIAGNOSIS: Metastatic breast cancer on Enhertu with solitary progression in the left upper lung nodule. HPI: 67 year old female who presents with above diagnosis, for an opinion regarding the role of radiation therapy in the management of the patient's disease. Final recommendations will be communicated back to the requesting physician by way of the shared medical record, or letter to requesting physician via US mail. 67 year old woman who was initially diagnosed in 2017 with Stage IIA, T2N0, invasive ductal carcinoma of the right breast s/p right breast lumpectomy and sentinel node biopsy, s/p chemotherapy with AC followed by Taxol/Herceptin. It's ER positive (9%, very weak), WV negative (0%) and Her2/krista 3+. She then had radiation treatment to the right breast with 60 Gy in 30 fractions from 09/29/16 to 11/10/16. She had local recurrence in the right breast in 2019 and was treated with right modified radical mastectomy on 04/02/19. It was grade 3 invasive ductal carcinoma measuring 3.5 cm and five axillary nodes were negative. It was ER positive (15%, weak), WV negative and Her2 3+. CT chest on 04/19/19 showed bilateral lung nodules suspicious for metastatic disease. CT A/P and bone scan and MRI Brain were negative for metastasis. She was treated with Taxotere/Herceptin/Perjeta, and then Herceptin/Perjeta. It was discontinued 01/2021 for progressive disease. She then had Kadcyla 02/2021 through 07/2021. It was discontinued secondary to significant worsening of neuropathy. She is now on Enhertu. CT C/A/P on 01/26/23 showed, Continued increase in size of a solid subpleural 10 x 7 mm nodule in the left upper lobe (previously 8 x 6 mm) which is suspicious for neoplastic etiology. An additional indeterminate 3 mm RLL nodule is stable ALLERGIES Allergen Reactions Neratinib Hives Hives/itching/ nausea vomiting and diarrhea Amoxil [Amoxicillin] Rash Aspirin Other: See Comments Internal bleeding Cephalosporins Unknown Ciprocinonide Unknown Codeine Unknown Demerol [Meperidine* Unknown Erythromycin Unknown Latex Rash Sully [Hydrocodone-* Hives Nubain [Nalbuphine * Unknown Percocet [Oxycodone* Rash, Itching Prednisone Unknown per pt, this was given when had appendicitis and received multiple meds and she developed a rash and they had given her prednisone but at some point it was thought that it wasn't working and maybe itwas part of the problem. [place] Other: See Comments Migraine headache Sulfa (Sulfonamide * Other: See Comments Fever/Gi upset/listless PAST MEDICAL HISTORY Diagnosis Date Breast cancer (HCC) Breast cancer, right (HCC) 03/2019 Scoliosis Prior radiation therapy, collagen vascular disease, or inflammatory bowel disease: Yes, previous radiation treatment to the right breast in 2017 as above. status: Post-menopausal. PAST SURGICAL HISTORY Procedure Laterality Date APPENDECTOMY BREAST BIOPSY Right toxoplasmosis/cyst removal BREAST LUMPECTOMY HX 02/26/2016 right CHG DELIVERY x2 COLONOSCOPY 2013 X2 INSJ TUNNELED CTR VAD W/SUBQ PORT AGE 5 YR/> Left 05/07/2019 MAST MODF RAD W/AX LYMPH NOD W/WO PECT/YUAN MIN Right 04/02/2019 PAST SURGICAL HISTORY OF back surgery for scoliosis X2 PAST SURGICAL HISTORY OF 05/2014 pre cancerous mole removed from back TUBAL LIGATION HX FAMILY HISTORY Problem Relation Age of Onset Cancer Maternal Grandfather testicular Cancer Mother melanoma No Known Problems Father Cataract Brother Asthma Sister Social History Tobacco Use Smoking status: Never Smokeless tobacco: Never Vaping Use Vaping Use: Never used Substance Use Topics Alcohol use: No Drug use: No COMPLETE REVIEW OF SYSTEMS: GENERAL: feeling well without fatigue, no recent change in weight HEENT: denies MAYFIELD, change in hearing or vision, no other ENT complaints NECK: denies swelling or pain in neck RESPIRATORY: no cough, no wheezing or shortness of breath CARDIOVASCULAR: no chest pain, no palpitations GI: normal appetite, tolerating PO well, BMs normal, and no abdominal pain : urination is normal MUSCULOSKELETAL: denies any painful or swollen joints, no muscle aches SKIN: no rash HEMATOLOGY/LYMPHOLOGY: negative for prolonged bleeding, no swollen lymph nodes NEURO: no numbness or paresthesias and no weakness of the extremities PHYSICAL EXAM: VS: BP 122/88 Pulse 63 Temp 37.2 C (98.9 F) (Temporal) Resp 15 Wt 85.7 kg (189 lb) SpO2 97% BMI 35.71 kg/m KPS: 90 General Appearance: Alert and oriented. No acute distress. HEENT: NCAT. Sclera anicteric. EOMI. Neck: Normal ROM. Chest: No respiratory distress. Musculoskeletal: Normal ROM in extremities. Neuro: Speech fluent. She uses a cane since ankle injury years ago. No focal deficits. Hematologic: No signs of active bleeding. RADIOLOGY/LABORATORY DATA: see HPI ASSESSMENT AND PLAN: 67 year old woman with metastatic breast cancer on Enhertu with solitary progression in the left upper lung nodule. I recommend SBRT to the left upper lung lesion. I explained the rationale, benefits, alternative management options and potential complications of radiation treatment to the patient and she understands and agrees to proceed. It was explained and understood that other personnel such as radiation therapists, systems coordinator, and physicists will partici lora in planning and delivery of radiation treatment. Permanent tattoo amado will be placed to aid with positioning for daily treatment and the patient consented. Patient will have a simulation procedure next week. Thank you very much for allowing us to participate in her care. Signed by: Meenu Garay MD cc: Mitch Mejia MD [address] [place] [address] Rip Rivers [address] [facility] [id number] documented in this encounterWestern Reserve Hospital08-23-2023 History of Present illness Narrative* Adriana Thomas RT(R) - 01/26/2023 9:00 AM EDT Radiology Service Progress Note PATIENT NAME: Renate Christiansen DATE OF SERVICE: January 26, 2023 TIME: 9:36 AM PATIENT IDENTITY VERIFICATION COMPLETED USING TWO (2) IDENTIFIERS: Name and Date of confirmedby patient verbally. FALL SCREENING: Has the patient had 2 falls in the last year or 1 fall with injury or currently using an Ambulatory Assistive Device (Walker, Cane, Wheelchair, Crutches, etc.)? No PATIENT GENDER DATA: Female. status: : No status: NO. PATIENT RELEVANT IMPLANT DATA REVIEWED: Yes RADIOLOGY DEPARTMENT: CT; Exam(s) Completed: Chest Abdomen Pelvis PERIPHERAL IV DATA: power port accessed by [id number] SIGNED BY: RT Ashley(R) January 26, 2023 9:36 AM documented in this encounterWestern Reserve Hospital08-09-2023 History of Present illness Narrative* Rip Rivers DO - 01/12/2023 10:25 AM EDT Diagnosis: 1) Metastatic recurrence of ER positive, WV negative, HER2 positive breast cancer. 2) Cardiomyopathy. HPI: The patient is a 67 year old female who discovered a lump on the lower inner portion of her right breast in the fall of 2015. She was seen at [facility] and underwent a right sided core biopsy on 02/16/2016 by interventional radiology. The tissue specimen demonstrated invasive ductal carcinoma, Yohan grade 2. ERpositive (90%, very weak) and WV negative (0%). HER-2 was quantified at 3+. She underwent a right sided lumpectomy and right axillary sentinel lymph node dissection on 02/26/2016. Final pathology demonstrated that within the lumpectomy specimen there was a 2.5 cm single focus ofinvasive carcinoma. DCIS was present comprising about 10% [...] 3) Nerlyx-stopped d/t diarrhea. Last dose of neratinib . I'm never taking that again. Seen here in early March for complaint of right breast fullness and tenderness. Diagnostic mammogram done on 03/07/2019 did not demonstrate a mass within the breast however on ultrasound there was a0.8 cm x 0.6 cm x 0.9 cm lobulated mass with an indistinct margin in the right breast at 1:00 anterior depth 6 cm in the nipple. It was lobulated and hypoechoic with internal echoes. This corresponded to the tender area. There was also a 1.2 x 0.9 x 2 cm lobulated mass with a circumscribed margin in the right breast at 2:00 anterior depth 7 cm from the nipple. It also was hypoechoic with internalechoes. And it also was tender on exam. Patient next underwent ultrasound-guided right breast needle core biopsy 2 on 03/22/2019. Pathology: MICROSCOPIC DIAGNOSIS A. Right breast at 1 o clock, core biopsy: Invasive ductal carcinoma with the following characteristics: Maximal length - 10 mm Nuclear grade - 3/3 Other findings - ductal carcinoma in situ, nuclear 3/3 with focal comedo necrosis. B. Right breast at 2 o clock, core biopsy: Invasive ductal carcinoma with the following characteristics: Maximal length - 1.2 mm Nuclear grade - 2-3/3 ANTIBODY / CLONE RESULT Block A P53 (DO-7) positive, >90% Ki-67 (30-9) positive, 12% CK8 ([id number]) positive CK5-6 (D5 & 1684) negative Calponin-1 (LC399X) negative P40 (BC28) negative E-Cad (ECH-6) positive MORPHOMETRIC ANALYSIS ER (clone 6F11) 15%, weak intensity WV (clone 16/1E2) 0% Her-2Neu (clone CB11) 3+ Block B Calponin-1 (GH672K) negative P40 (BC28) negative CK8 ([id number]) positive INTERPRETATION: A. Right breast 1 o clock, biopsy: Invasive ductal carcinoma, grade 3/3. Positive for estrogen receptors (favorable prognostic indicator). Negative for progesterone receptors (unfavorable prognostic indicator). Positive for overexpression of VAI8snv. B. Right breast 2 o clock, biopsy: Invasive ductal carcinoma, grade 2-3/3. Then underwent right breast modified mastectomy along with axillary lymph node dissection on 04/02/2019. Pathology: MICROSCOPIC DIAGNOSIS Right breast, modified radical mastectomy: Invasive ductal carcinoma x2. Ductal carcinoma in situ. Five out of five lymph nodes, negative for metastatic carcinoma. Hyalinized fibroadenomas x2. See cancer summary below. SJ:breann 04/05/19 INVASIVE BREAST CANCER SUMMARY: Specimen - total breast (including nipple and skin). Procedure - total mastectomy (including nipple and skin). Lymph node sampling - axillary dissection Specimen integrity - single, intact specimen Specimen laterality - right Tumor site - inner quadrant Tumor size: size of largest invasive carcinoma - 3.5 x 1.5 x 1.5 cm Tumor focality - two foci of invasive carcinoma Size of individual foci - 3.5 x 1.5 x 1.5 cm and 2 x 2 x 1 cm Macroscopic and Microscopic extent of tumor: Skin - invasive carcinoma does not invade into the dermis or epidermis. Nipple - DCIS does not involve nipple epidermis. Skeletal muscle - Skeletal muscle is present and is free of carcinoma. Ductal carcinoma in situ (DCIS) - present Extensive intraductal component (EIC) - negative Estimated size (extent) of DCIS - DCIS is present in the area of invasive carcinoma and comprise about 5% of the total tumor volume. Number of blocks with DCIS - 7 Number of blocks examined (breast tissue) - 16 Architectural patterns - cribriform and comedo Nuclear grade - grade 3 (high) Necrosis - present, central (expansive comedo necrosis) Lobular carcinoma in situ (LCIS) - not identified Histologic type of invasive carcinoma - invasive ductal carcinoma (no special type) Histologic Grade (Yohan grade): Glandular/tubular differentiation - score 3 Nuclear pleomorphism - score 3 Mitotic count - score 2 Overall grade - 3 (score of 8) Both tumor show similar morphologic features. Margins - larger focus of invasive carcinoma is present at the closest posterior margin of the specimen. - smaller focus of invasive carcinoma is 1.7 cm away from closest superior margin. - Margins are free of ductal carcinoma in situ. Treatment effect: Response to presurgical (neoadjuvant) therapy - no known presurgical therapy. Lymph-Vascular invasion - not identified Dermal lymph-vascular invasion - not identified Lymph nodes: Number of sentinel lymph nodes examined - 0 Total number of lymph nodes examined (sentinel and nonsentinel) - 5 Number of lymph nodes with macrometastases, micrometastases and isolated tumor cells - 0 Distant metastasis - not applicable Additional pathologic findings - hyalinized fibroadenomas x2 with focal calcifications. See comment. - Dense fibrosis and lobular involution. Ancillary studies - previously performed on section of tumor ([id number] / [id number]). ER - positive (15%, weak intensity) WV - negative (0%) Her2 krista - positive (3+) Microcalcifications - present in both invasive carcinoma and non-neoplastic tissue. Clinical history - Please make reference to previous specimen ([id number]) right breast at 1 o clock and right breast at 2 o clock core biopsies with diagnosis of invasive ductal carcinoma. PATHOLOGIC STAGE: pT2(m) pN0 Mx Evidently the larger focus of cancer was down to the chest wall muscle. Other significant past medical history was asymptomatic decline in ejection fraction 1 receiving Herceptin. Serial echocardiograms--March 2016 at that time he demonstrated ejection fraction of 72%.Another echocardiogram in September 2016 demonstrated ejection fraction of 55%. In November 2016 was 50% and in May 2017 was 45% with mild global hypokinesis. managed with beta-ruth and ARB. Most recent echocardiogram from May 2018 revealed normal left ventricular size with systolic function at lower limits of normal estimated at 53%. The global longitudinal strain was -19.4% (normal) cis. Stage I diastolic dysfunction was observed. Pulmonary artery pressure was 27 mmHg. Had staging CTs scans that suggested lung metastases. Not able to biopsy. Previous therapy: 1) Taxotere/Herceptin/Perjeta. 2) Herceptin/Perjeta. Discontinued 01/2021 for progressive disease. 3) Kadcyla. 02/2021 through 07/2021. Discontinued secondary to significant worsening of neuropathy. Current therapy: 1) Enhertu. Interim history: All below reviewed and verified by me today 01/12/2023: Still with constipation the first few days after her dose which is relieved with prune juice. No cough or shortness of breath. Occasional morning cough when she first gets up secondary to sinusdrainage. No worsening dyspnea on exertion. No palpitation or exertional chest pain. Active workingoutside and lately nat[place] a lot of produce from garden. Subcutaneous metastasis on the anterior lower chest wall remains no longer palpable to her. 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 Symptoms remain well controlled and stable. PMH, medications and allergies personally reviewed by me today. Any changes documented in appropriate section. ROS: Constitutional: Denies episodes of fever and night sweats. Not significantly fatigued. Normal appetite. Neuro: Denies MAYFIELD, vertigo, dizziness and imbalance. HEENT: No recent change in voice, vision or hearing. Resp: See above. CVS: See above. GI: Denies dysgeusia. Denies symptoms of stomatitis. Denies dysphagia and odynophagia. Denies abdominal pain. : Denies dysuria or gross hematuria. No symptoms of bladder outlet obstruction. Endo: Denies hot flashes. Denies polyuria and polydipsia. Denies heat and cold intolerance. Musculoskeletal: Denies bone, back, joint and muscular pain. Derm: Denies rash. Denies jaundice and diffuse pruritis. Heme: Denies unusual bleeding and unexplained bruising. Psych: Normal mood. PHYSICAL EXAM: Vitals: Blood pressure 110/68, pulse 66, temperature 36.6 C (97.9 F), weight 85.5 kg (188 lb 8 oz),SpO2 95 %. Well-appearing and in no acute distress. EYES: Sclerae are anicteric bilaterally. LYMPHATIC: There is no palpable cervical, supraclavicular, axillary adenopathy. RESPIRATORY: Normal vesicular breath sounds in all barnes. No rales, wheezes or rhonchi. CARDIOVASCULAR: Rhythm is regular. 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 ABDOMEN: The abdomen is nondistended. Extremities: No swelling or edema. SKIN: Continued resolution of subcutaneous metastasis near Xyvoid. NEUROLOGIC: smelter liner II-XII are grossly intact. Absent patellar DTRs. LABS: Component Latest Ref Rng & Units 12/22/2022 01/12/2023 WBC 3.70 - 11.00 k/uL 3.60 (L) 3.38 (L) RBC 3.90 - 5.20 m/uL 3.46 (L) 3.27 (L) Hemoglobin 11.5 - 15.5 g/dL 12.6 11.9 Hematocrit 36.0 - 46.0 % 37.6 35.6 (L) MCV 80.0 - 100.0 fL 108.7 (H) 108.9 (H) MCH 26.0 - 34.0 pg 36.4 (H) 36.4 (H) MCHC 30.5 - 36.0 g/dL 33.5 33.4 RDW-CV 11.5 - 15.0 % 15.3 (H) 15.5 (H) Platelet Count 150 - 400 k/uL 167 177 MPV 9.0 - 12.7 fL 9.7 9.5 Neut% % 46.6 44.1 Abs Neut (ANC) 1.45 - 7.50 k/uL 1.68 1.49 Lymph% % 34.2 33.7 Abs Lymph 1.00 - 4.00 k/uL 1.23 1.14 Cotton% % 10.3 12.7 Abs Cotton <0.87 k/uL 0.37 0.43 Eosin% % 7.8 8.3 Abs Eosin <0.46 k/uL 0.28 0.28 Baso% % 0.8 0.9 Abs Baso <0.11 k/uL 0.03 0.03 Immature Gran % % 0.3 0.3 IMMATURE GRANS (ABS) <0.10 k/uL <0.03 <0.03 NRBC /100 WBC 0.0 0.0 Absolute nRBC <0.01 k/uL <0.01 <0.01 DTYPE Auto Auto Protein, Total 6.3 - 8.0 g/dL 5.9 (L) 5.9 (L) Albumin 3.9 - 4.9 g/dL 3.7 (L) 3.5 (L) Calcium 8.5 - 10.2 mg/dL 9.5 9.5 Bilirubin, Total 0.2 - 1.3 mg/dL 0.4 0.4 Alkaline Phosphatase 34 - 123 U/L 194 (H) 178 (H) AST 13 - 35 U/L 38 (H) 34 ALT 7 - 38 U/L 21 20 Glucose 74 - 99 mg/dL 118 (H) 119 (H) BUN 7 - 21 mg/dL 10 14 Creatinine 0.58 - 0.96 mg/dL 0.95 0.99 (H) Sodium 136 - 144 mmol/L 141 140 Potassium 3.7 - 5.1 mmol/L 4.4 4.3 Chloride 97 - 105 mmol/L 107 (H) 109 (H) CO2 22 - 30 mmol/L 24 24 Anion Gap 9 - 18 mmol/L 10 7 (L) eGFR >=60 mL/min/1.73m 65 62 ASSESSMENT/PLAN: (C50.311, Z17.0) Malignant neoplasm of lower-inner quadrant of right breast of female, estrogen receptor positive (HCC) (primary encounter diagnosis) (C79.51) Bone metastases (HCC) (C78.01, C78.02) Malignant neoplasm metastatic to both lungs (HCC) (I42.7, T45.1X5A) Chemotherapy-induced cardiomyopathy (HCC) Assessment: -Originally pT2 pN0(sln) MX ER positive (9%, very weak) WV negative HER overexpressed stage IIA invasive ductal carcinoma the right breast. -Recurrent pT2(m) pN0 (none of 5 LNs) MX ER +(15%, weak intensity)/WV negative (0%) HER2 3+ invasive ductal carcinoma the right breast while on AI (anastrozole). Posterior margin positive--more thanjust focal according to pathologist. Pectoralis fascia rem she calixto. Staging workup revealed multiple lung metastases, not biopsy proven. -Kadcyla discontinued secondary to sudden worsening of neuropathy. -PET showed PD from lung metastases as well as one cutaneous metastasis. No bone metastases. -Tolerating Enhertu overall very well with exception of constipation that is manageable with prune juice. -No symptoms of pneumonitis. -No symptoms of cardiomyopathy. Blood pressure remains well controlled. -Reviewed today's lab work. Platelet count normal. Plan: -Continue metoprolol to 25 mg BID. -Continue Cozaar 100 mg daily. -Continue Lyrica 150 mg at HS. -Zometa to every 3 months (originally started for hypercalcemia). -US thyroid next February. -Continue Enhertu. -CTs in January--scheduled. -Echocardiogram due in January--scheduled. -Continue follow-up with Dr. Galeano. -Previously stopped IBU for increase in serum Cr. -Continue potassium chloride 20 mEq daily. (G62.0, T45.1X5A) Chemotherapy-induced neuropathy (HCC) Assessment: -Kadcyla recently discontinued secondary to sudden worsening of neuropathy. -No subjective change. Symptoms well controlled with Lyrica. Plan: -Continue Lyrica 150 mg twice daily. Portions of this documentation were copied and pasted from previous office visit notes in order to provide a cohesive continuity of the history. The note has been reviewed and edited and updated as necessary. I spent a total of 20 minutes on the date of the service which included preparing to see the patient, [id number] patient care, completing clinical documentation, obtaining and/or reviewing separately obtained history, performing a medically appropriate examination, counseling and educating the pat ient/family/caregiver, ordering medications, tests, or procedures, communicating with other HCPs (not separately reported), and communicating results to the patient/family/caregiver. Rip Rivers DO documented [facility] Miscellaneous Notes* Telephone Encounter - Ranjana Burgos RN - 12/30/2022 12:22 PM EDT [facility] IRB: [id number] Real World Treatment Experience of Patients with Breast, Lung, or GI Canceror Multiple Myeloma Using Remote Symptom Monitoring Informed Consent signed on: November STUDY ID #: [id number] Patient has not reached their 12-week minimum survey participation time point as of December 30, 2022. The patient was called and stated they do not want to continue completing [id number] surveys. The patient knows to follow provider's treatment plan and to discontinue the [id number] surveys. Patient understands to call the office sooner if needed and has my contact information for any additional questions regarding the study. Ranjana Burgos RN 12:22 PM December 30, 2022 documented in this encounterWestern [facility] History of Past illness Narrative* Problem Noted Date Diagnosed Date Resolved Date Platelets decreased 12/22/2022 06/08/19 24 documented as of this encounter (statuses as of 07/20/2023) [address]19-2023 History of Past illness Narrative* Problem Noted Date Diagnosed Date Resolved Date Platelets decreased 12/22/2022 06/08/19 24 documented as of this encounter (statuses as of 07/20/2023) [address]19-2023 History of Past illness Narrative* Problem Noted Date Diagnosed Date Resolved Date Platelets decreased 12/22/2022 06/08/19 24 documented as of this encounter (statuses as of 07/21/2023) [address]19-2023 History of Past illness Narrative* Problem Noted Date Diagnosed Date Resolved Date Platelets decreased 12/22/2022 06/08/19 24 documented as of this encounter (statuses as of 08/04/2023) [address]19-2023 History of Past illness Narrative* Problem Noted Date Diagnosed Date Resolved Date Platelets decreased 12/22/2022 06/08/19 24 documented as of this encounter (statuses as of 08/04/2023) [address]19-2023 History of Past illness Narrative* Problem Noted Date Diagnosed Date Resolved Date Platelets decreased 12/22/2022 06/08/19 24 documented as of this encounter (statuses as of 08/10/2023) [address]19-2023 History of Past illness Narrative* Problem Noted Date Diagnosed Date Resolved Date Platelets decreased 12/22/2022 06/08/19 24 documented as of this encounter (statuses as of 08/10/2023) [address]19-2023 History of Past illness Narrative* Problem Noted Date Diagnosed Date Resolved Date Platelets decreased 12/22/2022 06/08/19 24 documented as of this encounter (statuses as of 08/10/2023) [address]19-2023 History of Past illness Narrative* Problem Noted Date Diagnosed Date Resolved Date Platelets decreased 12/22/2022 06/08/19 24 documented as of this encounter (statuses as of 08/11/2023) [address]19-2023 History of Past illness Narrative* Problem Noted Date Diagnosed Date Resolved Date Platelets decreased 12/22/2022 06/08/19 24 documented as of this encounter (statuses as of 08/23/2023) [address]19-2023 History of Past illness Narrative* Problem Noted Date Diagnosed Date Resolved Date Platelets decreased 12/22/2022 06/08/19 24 documented as of this encounter (statuses as of 08/23/2023) [address]19-2023 History of Past illness Narrative* Problem Noted Date Diagnosed Date Resolved Date Platelets decreased 12/22/2022 06/08/19 24 documented as of this encounter (statuses as of 08/25/2023) [address]19-2023 History of Past illness Narrative* Problem Noted Date Diagnosed Date Resolved Date Platelets decreased 12/22/2022 06/08/19 24 documented as of this encounter (statuses as of 08/26/2023) [address]19-2023 History of Past illness Narrative* Problem Noted Date Diagnosed Date Resolved Date Platelets decreased 12/22/2022 06/08/19 24 documented as of this encounter (statuses as of 08/30/2023) [facility] of Past illness Narrative* Problem Noted Date Diagnosed Date Resolved Date Platelets decreased 12/22/2022 06/08/19 24 documented as of this encounter (statuses as of 08/30/2023) [address]19-2023 History of Past illness Narrative* Problem Noted Date Diagnosed Date Resolved Date Platelets decreased 12/22/2022 06/08/19 24 documented as of this encounter (statuses as of 08/30/2023) [address]19-2023 History of Past illness Narrative* Problem Noted Date Diagnosed Date Resolved Date Platelets decreased 12/22/2022 06/08/19 24 documented as of this encounter (statuses as of 09/06/2023) [address]19-2023 History of Past illness Narrative* Problem Noted Date Diagnosed Date Resolved Date Platelets decreased 12/22/2022 06/08/19 24 documented as of this encounter (statuses as of 09/09/2023) [address]19-2023 History of Past illness Narrative* Problem Noted Date Diagnosed Date Resolved Date Platelets decreased 12/22/2022 06/08/19 24 documented as of this encounter (statuses as of 09/14/2023) [address]19-2023 History of Past illness Narrative* Problem Noted Date Diagnosed Date Resolved Date Platelets decreased 12/22/2022 06/08/19 24 documented as of this encounter (statuses as of 09/16/2023) [address]19-2023 History of Past illness Narrative* Problem Noted Date Diagnosed Date Resolved Date Platelets decreased 12/22/2022 06/08/19 24 documented as of this encounter (statuses as of 09/17/2023) [address]19-2023 History of Past illness Narrative* Problem Noted Date Diagnosed Date Resolved Date Platelets decreased 12/22/2022 06/08/19 24 documented as of this encounter (statuses as of 09/21/2023) [address]19-2023 History of Past illness Narrative* Problem Noted Date Diagnosed Date Resolved Date Platelets decreased 12/22/2022 06/08/19 24 documented as of this encounter (statuses as of 09/21/2023) [address]19-2023 History of Past illness Narrative* Problem Noted Date Diagnosed Date Resolved Date Platelets decreased 12/22/2022 06/08/19 24 documented as of this encounter (statuses as of 09/23/2023) [address]19-2023 History of Present illness Narrative* Rip Rivers, - 12/22/2022 10:46 AM EDT Diagnosis: 1) Metastatic recurrence of ER positive, WV negative, HER2 positive breast cancer. 2) Cardiomyopathy. HPI: The patient is a 67 year old female who discovered a lump on the lower inner portion of her right breast in the fall of 2015. She was seen at [facility] and underwent a right sided core biopsy on 02/16/2016 by interventional radiology. The tissue specimen demonstrated invasive ductal carcinoma, Sorento grade 2. ERpositive (90%, very weak) and WV negative (0%). HER-2 was quantified at 3+. She underwent a right sided lumpectomy and right axillary sentinel lymph node dissection on 02/26/2016. Final pathology demonstrated that within the lumpectomy specimen there was a 2.5 cm single focus ofinvasive carcinoma. DCIS was present comprising about 10% [...] 3) Nerlyx-stopped d/t diarrhea. Last dose of neratinib . I'm never taking that again. Seen here in early March for complaint of right breast fullness and tenderness. Diagnostic mammogram done on 03/07/2019 did not demonstrate a mass within the breast however on ultrasound there was a0.8 cm x 0.6 cm x 0.9 cm lobulated mass with an indistinct margin in the right breast at 1:00 anterior depth 6 cm in the nipple. It was lobulated and hypoechoic with internal echoes. This corresponded to the tender area. There was also a 1.2 x 0.9 x 2 cm lobulated mass with a circumscribed margin in the right breast at 2:00 anterior depth 7 cm from the nipple. It also was hypoechoic with internalechoes. And it also was tender on exam. Patient next underwent ultrasound-guided right breast needle core biopsy 2 on 03/22/2019. Pathology: MICROSCOPIC DIAGNOSIS A. Right breast at 1 o clock, core biopsy: Invasive ductal carcinoma with the following characteristics: Maximal length - 10 mm Nuclear grade - 3/3 Other findings - ductal carcinoma in situ, nuclear 3/3 with focal comedo necrosis. B. Right breast at 2 o clock, core biopsy: Invasive ductal carcinoma with the following characteristics: Maximal length - 1.2 mm Nuclear grade - 2-3/3 ANTIBODY / CLONE RESULT Block A P53 (DO-7) positive, >90% Ki-67 (30-9) positive, 12% CK8 (68lcgsH39) positive CK5-6 (D5 & 1684) negative Calponin-1 (IZ870W) negative P40 (BC28) negative E-Cad (ECH-6) positive MORPHOMETRIC ANALYSIS ER (clone 6F11) 15%, weak intensity WV (clone 16/1E2) 0% Her-2Neu (clone CB11) 3+ Block B Calponin-1 (NI349M) negative P40 (BC28) negative CK8 (56wwldU30) positive INTERPRETATION: A. Right breast 1 o clock, biopsy: Invasive ductal carcinoma, grade 3/3. Positive for estrogen receptors (favorable prognostic indicator). Negative for progesterone receptors (unfavorable prognostic indicator). Positive for overexpression of DHU2ppd. B. Right breast 2 o clock, biopsy: Invasive ductal carcinoma, grade 2-3/3. Then underwent right breast modified mastectomy along with axillary lymph node dissection on 04/02/2019. Pathology: MICROSCOPIC DIAGNOSIS Right breast, modified radical mastectomy: Invasive ductal carcinoma x2. Ductal carcinoma in situ. Five out of five lymph nodes, negative for metastatic carcinoma. Hyalinized fibroadenomas x2. See cancer summary below. SJ:breann 04/05/19 INVASIVE BREAST CANCER SUMMARY: Specimen - total breast (including nipple and skin). Procedure - total mastectomy (including nipple and skin). Lymph node sampling - axillary dissection Specimen integrity - single, intact specimen Specimen laterality - right Tumor site - inner quadrant Tumor size: size of largest invasive carcinoma - 3.5 x 1.5 x 1.5 cm Tumor focality - two foci of invasive carcinoma Size of individual foci - 3.5 x 1.5 x 1.5 cm and 2 x 2 x 1 cm Macroscopic and Microscopic extent of tumor: Skin - invasive carcinoma does not invade into the dermis or epidermis. Nipple - DCIS does not involve nipple epidermis. Skeletal muscle - Skeletal muscle is present and is free of carcinoma. Ductal carcinoma in situ (DCIS) - present Extensive intraductal component (EIC) - negative Estimated size (extent) of DCIS - DCIS is present in the area of invasive carcinoma and comprise about 5% of the total tumor volume. Number of blocks with DCIS - 7 Number of blocks examined (breast tissue) - 16 Architectural patterns - cribriform and comedo Nuclear grade - grade 3 (high) Necrosis - present, central (expansive comedo necrosis) Lobular carcinoma in situ (LCIS) - not identified Histologic type of invasive carcinoma - invasive ductal carcinoma (no special type) Histologic Grade (Yohan grade): Glandular/tubular differentiation - score 3 Nuclear pleomorphism - score 3 Mitotic count - score 2 Overall grade - 3 (score of 8) Both tumor show similar morphologic features. Margins - larger focus of invasive carcinoma is present at the closest posterior margin of the specimen. - smaller focus of invasive carcinoma is 1.7 cm away from closest superior margin. - Margins are free of ductal carcinoma in situ. Treatment effect: Response to presurgical (neoadjuvant) therapy - no known presurgical therapy. Lymph-Vascular invasion - not identified Dermal lymph-vascular invasion - not identified Lymph nodes: Number of sentinel lymph nodes examined - 0 Total number of lymph nodes examined (sentinel and nonsentinel) - 5 Number of lymph nodes with macrometastases, micrometastases and isolated tumor cells - 0 Distant metastasis - not applicable Additional pathologic findings - hyalinized fibroadenomas x2 with focal calcifications. See comment. - Dense fibrosis and lobular involution. Ancillary studies - previously performed on section of tumor ([id number] / [id number]). ER - positive (15%, weak intensity) WV - negative (0%) Her2 krista - positive (3+) Microcalcifications - present in both invasive carcinoma and non-neoplastic tissue. Clinical history - Please make reference to previous specimen ([id number]) right breast at 1 o clock and right breast at 2 o clock core biopsies with diagnosis of invasive ductal carcinoma. PATHOLOGIC STAGE: pT2(m) pN0 Mx Evidently the larger focus of cancer was down to the chest wall muscle. Other significant past medical history was asymptomatic decline in ejection fraction 1 receiving Herceptin. Serial echocardiograms--March 2016 at that time he demonstrated ejection fraction of 72%.Another echocardiogram in September 2016 demonstrated ejection fraction of 55%. In November 2016 was 50% and in May 2017 was 45% with mild global hypokinesis. managed with beta-ruth and ARB. Most recent echocardiogram from May 2018 revealed normal left ventricular size with systolic function at lower limits of normal estimated at 53%. The global longitudinal strain was -19.4% (normal) cis. Stage I diastolic dysfunction was observed. Pulmonary artery pressure was 27 mmHg. Had staging CTs scans that suggested lung metastases. Not able to biopsy. Previous therapy: 1) Taxotere/Herceptin/Perjeta. 2) Herceptin/Perjeta. Discontinued 01/2021 for progressive disease. 3) Kadcyla. 02/2021 through 07/2021. Discontinued secondary to significant worsening of neuropathy. Current therapy: 1) Enhertu. Interim history: All below reviewed and verified by me today 12/01/2022: Still with constipation the first few days after her dose which is relieved with prune juice. No cough or shortness of breath. Occasional morning cough when she first gets up secondary to sinusdrainage. Active outside working her garden. No worsening dyspnea on exertion. No palpitation or exertional chest pain. Subcutaneous metastasis on the anterior lower chest wall remains no longer palpable to her. 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 Symptoms remain well controlled and stable. PMH, medications and allergies personally reviewed by me today. Any changes documented in appropriate section. ROS: Constitutional: Denies episodes of fever and night sweats. Not significantly fatigued. Normal appetite. Neuro: Denies [place], vertigo, dizziness and imbalance. HEENT: No recent change in voice, vision or hearing. Resp: See above. CVS: See above. GI: Denies dysgeusia. Denies symptoms of stomatitis. Denies dysphagia and odynophagia. Denies abdominal pain. : Denies dysuria or gross hematuria. No symptoms of bladder outlet obstruction. Endo: Denies hot flashes. Denies polyuria and polydipsia. Denies heat and cold intolerance. Musculoskeletal: Denies bone, back, joint and muscular pain. Derm: Denies rash. Denies jaundice and diffuse pruritis. Heme: Denies unusual bleeding and unexplained bruising. Psych: Normal mood. PHYSICAL EXAM: Vitals: Blood pressure 119/64, pulse 61, temperature 36.7 C (98.1 F), weight 84.6 kg (186 lb 8 oz),SpO2 97 %. Well-appearing and in no acute distress. EYES: Sclerae are anicteric bilaterally. LYMPHATIC: There is no palpable cervical, supraclavicular, axillary adenopathy. RESPIRATORY: Normal vesicular breath sounds in all barnes. No rales, wheezes or rhonchi. CARDIOVASCULAR: Rhythm is regular. 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 ABDOMEN: The abdomen is nondistended. Extremities: No swelling or edema. SKIN: Resolution of subcutaneous metastasis near Xyvoid. NEUROLOGIC: smelter liner II-XII are grossly intact. Absent patellar DTRs. MS: No tenderness over the left SI joint or iliac crest. No mass. LABS: Component Latest Ref Rng & Units 11/10/2022 12/01/2022 12/22/2022 WBC 3.70 - 11.00 k/uL 3.67 (L) 4.12 3.60 (L) RBC 3.90 - 5.20 m/uL 3.40 (L) 3.24 (L) 3.46 (L) Hemoglobin 11.5 - 15.5 g/dL 12.4 11.9 12.6 Hematocrit 36.0 - 46.0 % 36.8 35.2 (L) 37.6 MCV 80.0 - 100.0 fL 108.2 (H) 108.6 (H) 108.7 (H) MCH 26.0 - 34.0 pg 36.5 (H) 36.7 (H) 36.4 (H) MCHC 30.5 - 36.0 g/dL 33.7 33.8 33.5 RDW-CV 11.5 - 15.0 % 15.4 (H) 15.2 (H) 15.3 (H) Platelet Count 150 - 400 k/uL 187 147 (L) 167 MPV 9.0 - 12.7 fL 9.5 9.2 9.7 Neut% % 47.2 50.5 46.6 Abs Neut (ANC) 1.45 - 7.50 k/uL 1.73 2.08 1.68 Lymph% % 31.9 31.6 34.2 Abs Lymph 1.00 - 4.00 k/uL 1.17 1.30 1.23 Cotton% % 12.5 10.4 10.3 Abs Cotton <0.87 k/uL 0.46 0.43 0.37 Eosin% % 7.6 6.8 7.8 Abs Eosin <0.46 k/uL 0.28 0.28 0.28 Baso% % 0.8 0.7 0.8 Abs Baso <0.11 k/uL 0.03 0.03 0.03 Immature Gran % % 0.0 0.0 0.3 IMMATURE GRANS (ABS) <0.10 k/uL <0.03 <0.03 <0.03 NRBC /100 WBC 0.0 0.0 0.0 Absolute nRBC <0.01 k/uL <0.01 <0.01 <0.01 DTYPE Auto Auto Auto Protein, Total 6.3 - 8.0 g/dL 6.0 (L) 5.9 (L) 5.9 (L) Albumin 3.9 - 4.9 g/dL 3.8 (L) 3.8 (L) 3.7 (L) Calcium 8.5 - 10.2 mg/dL 9.6 9.8 9.5 Bilirubin, Total 0.2 - 1.3 mg/dL 0.5 0.3 0.4 Alkaline Phosphatase 34 - 123 U/L 183 (H) 202 (H) 194 (H) AST 13 - 35 U/L 33 33 38 (H) ALT 7 - 38 U/L 20 20 21 Glucose 74 - 99 mg/dL 114 (H) 134 (H) 118 (H) BUN 7 - 21 mg/dL 12 15 10 Creatinine 0.58 - 0.96 mg/dL 1.01 (H) 1.02 (H) 0.95 Sodium 136 - 144 mmol/L 142 141 141 Potassium 3.7 - 5.1 mmol/L 4.4 3.9 4.4 Chloride 97 - 105 mmol/L 106 (H) 107 (H) 107 (H) CO2 22 - 30 mmol/L 29 27 24 Anion Gap 9 - 18 mmol/L 7 (L) 7 (L) 10 eGFR >=60 mL/min/1.73m 60 60 65 ASSESSMENT/PLAN: (C50.311, Z17.0) Malignant neoplasm of lower-inner quadrant of right breast of female, estrogen receptor positive (HCC) (primary encounter diagnosis) (C79.51) Bone metastases (HCC) (C78.01, C78.02) Malignant neoplasm metastatic to both lungs (HCC) (I42.7, T45.1X5A) Chemotherapy-induced cardiomyopathy (HCC) Assessment: -Originally pT2 pN0(sln) MX ER positive (9%, very weak) WV negative HER overexpressed stage IIA invasive ductal carcinoma the right breast. -Recurrent pT2(m) pN0 (none of 5 LNs) MX ER +(15%, weak intensity)/WV negative (0%) HER2 3+ invasive ductal carcinoma the right breast while on AI (anastrozole). Posterior margin positive--more thanjust focal according to pathologist. Pectoralis fascia rem she calixto. Staging workup revealed multiple lung metastases, not biopsy proven. -Kadcyla discontinued secondary to sudden worsening of neuropathy. -PET showed PD from lung metastases as well as one cutaneous metastasis. No bone metastases. -Tolerating Enhertu overall very well with exception of constipation that is manageable with prune juice. -No symptoms of pneumonitis. -She has no symptoms of cardiomyopathy. Blood pressure remains well controlled. -Reviewed today's lab work. Platelet count now normal. Plan: -Continue metoprolol to 25 mg BID. -Continue Cozaar 100 mg daily. -Continue Lyrica 150 mg at HS. -Zometa to every 3 months (originally started for hypercalcemia). -US thyroid next February. -Continue Enhertu. -CTs in January--will schedule prior to OV 02/02. -Echocardiogram due in January. -Continue follow-up with Dr. Galeano. -Previously stopped IBU for increase in serum Cr. -Continue potassium chloride 20 mEq daily. (G62.0, T45.1X5A) Chemotherapy-induced neuropathy (HCC) Assessment: -Kadcyla recently discontinued secondary to sudden worsening of neuropathy. -No subjective change. Symptoms well controlled with Lyrica. Plan: -Continue Lyrica 150 mg twice daily. Portions of this documentation were copied and pasted from previous office visit notes in order to provide a cohesive continuity of the history. The note has been reviewed and edited and updated as necessary. I spent a total of 25 minutes on the date of the service which included preparing to see the patient, [id number] patient care, completing clinical documentation, obtaining and/or reviewing separately obtained history, performing a medically appropriate examination, counseling and educating the pat ient/family/caregiver, ordering medications, tests, or procedures, communicating with other HCPs (not separately reported), and communicating results to the patient/family/caregiver. Rip Rivers DO documented in this [facility] History of Present illness Narrative* Rip Rivers DO - 12/01/2022 8:38 AM EDT Diagnosis: 1) Metastatic recurrence of ER positive, WV negative, HER2 positive breast cancer. 2) Cardiomyopathy. HPI: The patient is a 67 year old female who discovered a lump on the lower inner portion of her right breast in the fall of 2015. She was seen at [facility] and underwent a right sided core biopsy on 02/16/2016 by interventional radiology. The tissue specimen demonstrated invasive ductal carcinoma, Yohan grade 2. ERpositive (90%, very weak) and WV negative (0%). HER-2 was quantified at 3+. She underwent a right sided lumpectomy and right axillary sentinel lymph node dissection on 02/26/2016. Final pathology demonstrated that within the lumpectomy specimen there was a 2.5 cm single focus ofinvasive carcinoma. DCIS was present comprising about 10% [...] 3) Nerlyx-stopped d/t diarrhea. Last dose of neratinib . I'm never taking that again. Seen here in early March for complaint of right breast fullness and tenderness. Diagnostic mammogram done on 03/07/2019 did not demonstrate a mass within the breast however on ultrasound there was a0.8 cm x 0.6 cm x 0.9 cm lobulated mass with an indistinct margin in the right breast at 1:00 anterior depth 6 cm in the nipple. It was lobulated and hypoechoic with internal echoes. This corresponded to the tender area. There was also a 1.2 x 0.9 x 2 cm lobulated mass with a circumscribed margin in the right breast at 2:00 anterior depth 7 cm from the nipple. It also was hypoechoic with internalechoes. And it also was tender on exam. Patient next underwent ultrasound-guided right breast needle core biopsy 2 on 03/22/2019. Pathology: MICROSCOPIC DIAGNOSIS A. Right breast at 1 o clock, core biopsy: Invasive ductal carcinoma with the following characteristics: Maximal length - 10 mm Nuclear grade - 3/3 Other findings - ductal carcinoma in situ, nuclear 3/3 with focal comedo necrosis. B. Right breast at 2 o clock, core biopsy: Invasive ductal carcinoma with the following characteristics: Maximal length - 1.2 mm Nuclear grade - 2-3/3 ANTIBODY / CLONE RESULT Block A P53 (DO-7) positive, >90% Ki-67 (30-9) positive, 12% CK8 ([id number]) positive CK5-6 (D5 & 1684) negative Calponin-1 (RL614C) negative P40 (BC28) negative E-Cad (ECH-6) positive MORPHOMETRIC ANALYSIS ER (clone 6F11) 15%, weak intensity WV (clone 16/1E2) 0% Her-2Neu (clone CB11) 3+ Block B Calponin-1 (OC991Q) negative P40 (BC28) negative CK8 (80zgykK16) positive INTERPRETATION: A. Right breast 1 o clock, biopsy: Invasive ductal carcinoma, grade 3/3. Positive for estrogen receptors (favorable prognostic indicator). Negative for progesterone receptors (unfavorable prognostic indicator). Positive for overexpression of [id number]. B. Right breast 2 o clock, biopsy: Invasive ductal carcinoma, grade 2-3/3. Then underwent right breast modified mastectomy along with axillary lymph node dissection on 04/02/2019. Pathology: MICROSCOPIC DIAGNOSIS Right breast, modified radical mastectomy: Invasive ductal carcinoma x2. Ductal carcinoma in situ. Five out of five lymph nodes, negative for metastatic carcinoma. Hyalinized fibroadenomas x2. See cancer summary below. SJ:breann 04/05/19 INVASIVE BREAST CANCER SUMMARY: Specimen - total breast (including nipple and skin). Procedure - total mastectomy (including nipple and skin). Lymph node sampling - axillary dissection Specimen integrity - single, intact specimen Specimen laterality - right Tumor site - inner quadrant Tumor size: size of largest invasive carcinoma - 3.5 x 1.5 x 1.5 cm Tumor focality - two foci of invasive carcinoma Size of individual foci - 3.5 x 1.5 x 1.5 cm and 2 x 2 x 1 cm Macroscopic and Microscopic extent of tumor: Skin - invasive carcinoma does not invade into the dermis or epidermis. Nipple - DCIS does not involve nipple epidermis. Skeletal muscle - Skeletal muscle is present and is free of carcinoma. Ductal carcinoma in situ (DCIS) - present Extensive intraductal component (EIC) - negative Estimated size (extent) of DCIS - DCIS is present in the area of invasive carcinoma and comprise about 5% of the total tumor volume. Number of blocks with DCIS - 7 Number of blocks examined (breast tissue) - 16 Architectural patterns - cribriform and comedo Nuclear grade - grade 3 (high) Necrosis - present, central (expansive comedo necrosis) Lobular carcinoma in situ (LCIS) - not identified Histologic type of invasive carcinoma - invasive ductal carcinoma (no special type) Histologic Grade (Yohan grade): Glandular/tubular differentiation - score 3 Nuclear pleomorphism - score 3 Mitotic count - score 2 Overall grade - 3 (score of 8) Both tumor show similar morphologic features. Margins - larger focus of invasive carcinoma is present at the closest posterior margin of the specimen. - smaller focus of invasive carcinoma is 1.7 cm away from closest superior margin. - Margins are free of ductal carcinoma in situ. Treatment effect: Response to presurgical (neoadjuvant) therapy - no known presurgical therapy. Lymph-Vascular invasion - not identified Dermal lymph-vascular invasion - not identified Lymph nodes: Number of sentinel lymph nodes examined - 0 Total number of lymph nodes examined (sentinel and nonsentinel) - 5 Number of lymph nodes with macrometastases, micrometastases and isolated tumor cells - 0 Distant metastasis - not applicable Additional pathologic findings - hyalinized fibroadenomas x2 with focal calcifications. See comment. - Dense fibrosis and lobular involution. Ancillary studies - previously performed on section of tumor ([id number] / [id number]). ER - positive (15%, weak intensity) WV - negative (0%) Her2 krista - positive (3+) Microcalcifications - present in both invasive carcinoma and non-neoplastic tissue. Clinical history - Please make reference to previous specimen ([id number]) right breast at 1 o clock and right breast at 2 o clock core biopsies with diagnosis of invasive ductal carcinoma. PATHOLOGIC STAGE: pT2(m) pN0 Mx Evidently the larger focus of cancer was down to the chest wall muscle. Other significant past medical history was asymptomatic decline in ejection fraction 1 receiving Herceptin. Serial echocardiograms--March 2016 at that time he demonstrated ejection fraction of 72%.Another echocardiogram in September 2016 demonstrated ejection fraction of 55%. In November 2016 was 50% and in May 2017 was 45% with mild global hypokinesis. managed with beta-ruth and ARB. Most recent echocardiogram from May 2018 revealed normal left ventricular size with systolic function at lower limits of normal estimated at 53%. The global longitudinal strain was -19.4% (normal) cis. Stage I diastolic dysfunction was observed. Pulmonary artery pressure was 27 mmHg. Had staging CTs scans that suggested lung metastases. Not able to biopsy. Previous therapy: 1) Taxotere/Herceptin/Perjeta. 2) Herceptin/Perjeta. Discontinued 01/2021 for progressive disease. 3) Kadcyla. 02/2021 through 07/2021. Discontinued secondary to significant worsening of neuropathy. Current therapy: 1) Enhertu. Interim history: All below reviewed and verified by me today 12/01/2022: Still with constipation the first few days after her dose which is relieved with prune juice. No cough or shortness of breath. Occasional morning cough when she first gets up secondary to sinusdrainage. Active outside and is getting ready to plant a garden. No worsening dyspnea on exertion. No palpitation or exertional chest pain. Subcutaneous metastasis on the anterior lower chest wall no longer palpable to her. 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 Symptoms remain well controlled. Stable. Only new complaint is SI pain on left when walking. Can have a numb sensation localized to that area as well. Somewhat better. PMH, medications and allergies personally reviewed by me today. Any changes documented in appropriate section. ROS: Constitutional: Denies episodes of fever and night sweats. Not significantly fatigued. Normal appetite. Neuro: Denies MAYFIELD, vertigo, dizziness and imbalance. HEENT: No recent change in voice, vision or hearing. Resp: See above. CVS: See above. GI: Denies dysgeusia. Denies symptoms of stomatitis. Denies dysphagia and odynophagia. Denies abdominal pain. : Denies dysuria or gross hematuria. No symptoms of bladder outlet obstruction. Endo: Denies hot flashes. Denies polyuria and polydipsia. Denies heat and cold intolerance. Musculoskeletal: Denies bone, back, joint and muscular pain. Derm: Denies rash. Denies jaundice and diffuse pruritis. Heme: Denies unusual bleeding and unexplained bruising. Psych: Normal mood. PHYSICAL EXAM: Vitals: Blood pressure 110/56, pulse (!) 59, temperature 36.7 C (98 F), temperature source Temporal, weight 86.6 kg (191 lb), SpO2 95 %. Well-appearing and in no acute distress. EYES: Sclerae are anicteric bilaterally. LYMPHATIC: There is no palpable cervical, supraclavicular, axillary adenopathy. RESPIRATORY: Normal vesicular breath sounds in all barnes. No rales, wheezes or rhonchi. CARDIOVASCULAR: Rhythm is regular. 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 ABDOMEN: The abdomen is nondistended. Extremities: No swelling or edema. SKIN: Resolution of subcutaneous metastasis near Xyvoid. NEUROLOGIC: smelter liner II-XII are grossly intact. Absent patellar DTRs. MS: No tenderness over the left SI joint or iliac crest. No mass. LABS: Component Latest Ref Rng & Units 12/01/2022 WBC 3.70 - 11.00 k/uL 4.12 RBC 3.90 - 5.20 m/uL 3.24 (L) Hemoglobin 11.5 - 15.5 g/dL 11.9 Hematocrit 36.0 - 46.0 % 35.2 (L) MCV 80.0 - 100.0 fL 108.6 (H) MCH 26.0 - 34.0 pg 36.7 (H) MCHC 30.5 - 36.0 g/dL 33.8 RDW-CV 11.5 - 15.0 % 15.2 (H) Platelet Count 150 - 400 k/uL 147 (L) MPV 9.0 - 12.7 fL 9.2 Neut% % 50.5 Abs Neut (ANC) 1.45 - 7.50 k/uL 2.08 Lymph% % 31.6 Abs Lymph 1.00 - 4.00 k/uL 1.30 Cotton% % 10.4 Abs Cotton <0.87 k/uL 0.43 Eosin% % 6.8 Abs Eosin <0.46 k/uL 0.28 Baso% % 0.7 Abs Baso <0.11 k/uL 0.03 Immature Gran % % 0.0 IMMATURE GRANS (ABS) <0.10 k/uL <0.03 NRBC /100 WBC 0.0 Absolute nRBC <0.01 k/uL <0.01 DTYPE Auto Protein, Total 6.3 - 8.0 g/dL 5.9 (L) Albumin 3.9 - 4.9 g/dL 3.8 (L) Calcium 8.5 - 10.2 mg/dL 9.8 Bilirubin, Total 0.2 - 1.3 mg/dL 0.3 Alkaline Phosphatase 34 - 123 U/L 202 (H) AST 13 - 35 U/L 33 ALT 7 - 38 U/L 20 Glucose 74 - 99 mg/dL 134 (H) BUN 7 - 21 mg/dL 15 Creatinine 0.58 - 0.96 mg/dL 1.02 (H) Sodium 136 - 144 mmol/L 141 Potassium 3.7 - 5.1 mmol/L 3.9 Chloride 97 - 105 mmol/L 107 (H) CO2 22 - 30 mmol/L 27 Anion Gap 9 - 18 mmol/L 7 (L) eGFR >=60 mL/min/1.73m 60 ASSESSMENT/PLAN: (C50.311, Z17.0) Malignant neoplasm of lower-inner quadrant of right breast of female, estrogen receptor positive (HCC) (primary encounter diagnosis) (C79.51) Bone metastases (HCC) (C78.01, C78.02) Malignant neoplasm metastatic to both lungs (HCC) (I42.7, T45.1X5A) Chemotherapy-induced cardiomyopathy (HCC) Assessment: -Originally pT2 pN0(sln) MX ER positive (9%, very weak) WV negative HER overexpressed stage IIA invasive ductal carcinoma the right breast. -Recurrent pT2(m) pN0 (none of 5 LNs) MX ER +(15%, weak intensity)/WV negative (0%) HER2 3+ invasive ductal carcinoma the right breast while on AI (anastrozole). Posterior margin positive--more thanjust focal according to pathologist. Pectoralis fascia rem she calixto. Staging workup revealed multiple lung metastases, not biopsy proven. -Kadcyla discontinued secondary to sudden worsening of neuropathy. -PET showed PD from lung metastases as well as one cutaneous metastasis. No bone metastases. -Tolerating Enhertu overall very well with exception of constipation that is manageable with prune juice. -No symptoms of pneumonitis. -She has no symptoms of cardiomyopathy. Blood pressure remains well controlled. -Reviewed today's lab work. Plan: -Continue metoprolol to 25 mg BID. -Continue Cozaar 100 mg daily. -Continue Lyrica 150 mg at HS. -Zometa to every 3 months (originally started for hypercalcemia). -US thyroid next February. -Continue Enhertu. -CT in January. -Continue follow-up with Dr. Galeano. -Previously stopped IBU for increase in serum Cr. -Continue potassium chloride 20 mEq daily. (G62.0, T45.1X5A) Chemotherapy-induced neuropathy (HCC) Assessment: -Kadcyla recently discontinued secondary to sudden worsening of neuropathy. -No subjective change. Symptoms well controlled with Lyrica. Plan: -Continue Lyrica 150 mg twice daily. Portions of this documentation were copied and pasted from previous office visit notes in order to provide a cohesive continuity of the history. The note has been reviewed and edited and updated as necessary. I spent a total of 20 minutes on the date of the service which included preparing to see the patient, [id number] patient care, completing clinical documentation, obtaining and/or reviewing separately obtained history, performing a medically appropriate examination, counseling and educating the pat ient/family/caregiver, ordering medications, tests, or procedures, communicating with other HCPs (not separately reported), and communicating results to the patient/family/caregiver. Rip Rivers DO documented [facility] History of Present illness Narrative* Ana Cristina Bejarano RN - 12/01/2022 7:51 AM EDT Patient is here for IVAD port flush/blood draw per [facility] [place] protocol. IVAD is located in left upper chest. Site cleansed with Chloraprep IVAD accessed with a #20 gauge 3/4 non-coring Gripper needle Flush with 5cc's Normal Saline. Blood Return: Good. 10 cc's blood aspirated and discarded. Blood drawn for CBC and CMP. Flushed with: 20 ml Normal Saline and 5 ml Heparin Lock Flush. Non-coring needle removed. Paper tape and 2x2 gauze applied to puncture site. Site negative for redness, edema or tenderness. Patient tolerated procedure well. documented in this encounterWestern [facility]06-[facility] History of Present illness Narrative* Ranjana Burgos RN - 11/11/2022 9:34 AM EDT Clinical Trial Informed Consent & Screening [facility] 1Y21 IRB: [id number] Real World Treatment Experience of Patients with Breast, Lung, or GI Canceror Multiple Myeloma Using Remote Symptom Monitoring Patient seen today to obtain clinical trial informed consent. Patient states he/she has read the consent. The patient meets study criteria as discussed with Dr. Rip Rivers D.O. . All study related questions have been addressed or answered at this time. Contact information for research team was provided within the consent. Consent willingly signed by patient and approved study sales floor team member on November at 8:45 am . Patient given copy of signed informed consent. Enrollment in this study does NOT alter treatment plans. Informed Consent signed on: November STUDY ID #: [id number] Met with Patient and spouse today. Patient has consented to the above mentioned study and screeningdocumentation is provided below. All of the patient's questions were answered. Subject is 18 years of age or older Yes Subject understands Kiswahili Yes Subject may be any stage and anywhere in the treatment continuum Yes Subject must have a diagnosis of a breast, lung, GI or ovarian cancer or multiple myeloma Yes Disease PRG: Breast Subject must be able to complete on-line surveys using a cell phone, tablet, or computer Yes Patient meets all Criteria for Study Participation: Yes Study includes the following: Electronic Survey via subject's personal device Business Functional Analyst(s): Chance Espinoza MD [facility] [address] [place] [address], [place] [phone] [email or web address] Banking Services Advisor: Eileen Null Lead Pager: [email or web address] The patient knows to follow provider's treatment plan and to complete the baseline survey within 5-days of receipt. Weekly electronic surveys to be sent for minimum of 12 weeks. Patient understands to call the office sooner if needed and has my contact information for any additional questions regarding the study. Ranjana Burgos RN 9:39 AM November 11, 2022 documented in this encounterWestern [facility]06-07-[facility]23 History of Present illness Narrative* Prince Blunt RT(R) - 11/10/2022 10:40 AM EDT Radiology Service Progress Note PATIENT NAME: Renate Christiansen DATE OF SERVICE: November 10, 2022 TIME: 11:12 AM PATIENT IDENTITY VERIFICATION COMPLETED USING TWO (2) IDENTIFIERS: Name and Date of confirmedby patient verbally. FALL SCREENING: Has the patient had 2 falls in the last year or 1 fall with injury or currently using an Ambulatory Assistive Device (Walker, Cane, Wheelchair, Crutches, etc.)? No PATIENT GENDER DATA: Female. status: : No status: NO. PATIENT RELEVANT IMPLANT DATA REVIEWED: Not Applicable RADIOLOGY DEPARTMENT: General X-ray: Exam(s) Completed: Spine X-Ray(s): Lumbar AP / LAT / L5-S1 Pelvis X-Ray: sacroiliac joints Ap and Lat lumbar only PERIPHERAL IV DATA: Not applicable SIGNED BY: RT Paul(R) November 10, 2022 11:12 AM documented in this encounterWestern [facility]06-[facility]23 History of Present illness Narrative* Rip Rivers DO - 11/10/2022 10:24 AM EDT Diagnosis: 1) Metastatic recurrence of ER positive, WV negative, HER2 positive breast cancer. 2) Cardiomyopathy. HPI: The patient is a 67 year old female who discovered a lump on the lower inner portion of her right breast in the fall of 2015. She was seen at [facility] and underwent a right sided core biopsy on 02/16/2016 by interventional radiology. The tissue specimen demonstrated invasive ductal carcinoma, Yohan grade 2. ERpositive (90%, very weak) and WV negative (0%). HER-2 was quantified at 3+. She underwent a right sided lumpectomy and right axillary sentinel lymph node dissection on 02/26/2016. Final pathology demonstrated that within the lumpectomy specimen there was a 2.5 cm single focus ofinvasive carcinoma. DCIS was present comprising about 10% [...] 3) Nerlyx-stopped d/t diarrhea. Last dose of neratinib . I'm never taking that again. Seen here in early March for complaint of right breast fullness and tenderness. Diagnostic mammogram done on 03/07/2019 did not demonstrate a mass within the breast however on ultrasound there was a0.8 cm x 0.6 cm x 0.9 cm lobulated mass with an indistinct margin in the right breast at 1:00 anterior depth 6 cm in the nipple. It was lobulated and hypoechoic with internal echoes. This corresponded to the tender area. There was also a 1.2 x 0.9 x 2 cm lobulated mass with a circumscribed margin in the right breast at 2:00 anterior depth 7 cm from the nipple. It also was hypoechoic with internalechoes. And it also was tender on exam. Patient next underwent ultrasound-guided right breast needle core biopsy 2 on 03/22/2019. Pathology: MICROSCOPIC DIAGNOSIS A. Right breast at 1 o clock, core biopsy: Invasive ductal carcinoma with the following characteristics: Maximal length - 10 mm Nuclear grade - 3/3 Other findings - ductal carcinoma in situ, nuclear 3/3 with focal comedo necrosis. B. Right breast at 2 o clock, core biopsy: Invasive ductal carcinoma with the following characteristics: Maximal length - 1.2 mm Nuclear grade - 2-3/3 ANTIBODY / CLONE RESULT Block A P53 (DO-7) positive, >90% Ki-67 (30-9) positive, 12% CK8 (96cyyhR14) positive CK5-6 (D5 & 1684) negative Calponin-1 (QX577R) negative P40 (BC28) negative E-Cad (ECH-6) positive MORPHOMETRIC ANALYSIS ER (clone 6F11) 15%, weak intensity WV (clone 16/1E2) 0% Her-2Neu (clone CB11) 3+ Block B Calponin-1 (QL105K) negative P40 (BC28) negative CK8 (75mawlS17) positive INTERPRETATION: A. Right breast 1 o clock, biopsy: Invasive ductal carcinoma, grade 3/3. Positive for estrogen receptors (favorable prognostic indicator). Negative for progesterone receptors (unfavorable prognostic indicator). Positive for overexpression of EWP1fel. B. Right breast 2 o clock, biopsy: Invasive ductal carcinoma, grade 2-3/3. Then underwent right breast modified mastectomy along with axillary lymph node dissection on 04/02/2019. Pathology: MICROSCOPIC DIAGNOSIS Right breast, modified radical mastectomy: Invasive ductal carcinoma x2. Ductal carcinoma in situ. Five out of five lymph nodes, negative for metastatic carcinoma. Hyalinized fibroadenomas x2. See cancer summary below. SJ:breann 04/05/19 INVASIVE BREAST CANCER SUMMARY: Specimen - total breast (including nipple and skin). Procedure - total mastectomy (including nipple and skin). Lymph node sampling - axillary dissection Specimen integrity - single, intact specimen Specimen laterality - right Tumor site - inner quadrant Tumor size: size of largest invasive carcinoma - 3.5 x 1.5 x 1.5 cm Tumor focality - two foci of invasive carcinoma Size of individual foci - 3.5 x 1.5 x 1.5 cm and 2 x 2 x 1 cm Macroscopic and Microscopic extent of tumor: Skin - invasive carcinoma does not invade into the dermis or epidermis. Nipple - DCIS does not involve nipple epidermis. Skeletal muscle - Skeletal muscle is present and is free of carcinoma. Ductal carcinoma in situ (DCIS) - present Extensive intraductal component (EIC) - negative Estimated size (extent) of DCIS - DCIS is present in the area of invasive carcinoma and comprise about 5% of the total tumor volume. Number of blocks with DCIS - 7 Number of blocks examined (breast tissue) - 16 Architectural patterns - cribriform and comedo Nuclear grade - grade 3 (high) Necrosis - present, central (expansive comedo necrosis) Lobular carcinoma in situ (LCIS) - not identified Histologic type of invasive carcinoma - invasive ductal carcinoma (no special type) Histologic Grade (Sorento grade): Glandular/tubular differentiation - score 3 Nuclear pleomorphism - score 3 Mitotic count - score 2 Overall grade - 3 (score of 8) Both tumor show similar morphologic features. Margins - larger focus of invasive carcinoma is present at the closest posterior margin of the specimen. - smaller focus of invasive carcinoma is 1.7 cm away from closest superior margin. - Margins are free of ductal carcinoma in situ. Treatment effect: Response to presurgical (neoadjuvant) therapy - no known presurgical therapy. Lymph-Vascular invasion - not identified Dermal lymph-vascular invasion - not identified Lymph nodes: Number of sentinel lymph nodes examined - 0 Total number of lymph nodes examined (sentinel and nonsentinel) - 5 Number of lymph nodes with macrometastases, micrometastases and isolated tumor cells - 0 Distant metastasis - not applicable Additional pathologic findings - hyalinized fibroadenomas x2 with focal calcifications. See comment. - Dense fibrosis and lobular involution. Ancillary studies - previously performed on section of tumor ([id number] / [id number]). ER - positive (15%, weak intensity) WV - negative (0%) Her2 krista - positive (3+) Microcalcifications - present in both invasive carcinoma and non-neoplastic tissue. Clinical history - Please make reference to previous specimen ([id number]) right breast at 1 o clock and right breast at 2 o clock core biopsies with diagnosis of invasive ductal carcinoma. PATHOLOGIC STAGE: pT2(m) pN0 Mx Evidently the larger focus of cancer was down to the chest wall muscle. Other significant past medical history was asymptomatic decline in ejection fraction 1 receiving Herceptin. Serial echocardiograms--March 2016 at that time he demonstrated ejection fraction of 72%.Another echocardiogram in September 2016 demonstrated ejection fraction of 55%. In November 2016 was 50% and in May 2017 was 45% with mild global hypokinesis. managed with beta-ruth and ARB. Most recent echocardiogram from May 2018 revealed normal left ventricular size with systolic function at lower limits of normal estimated at 53%. The global longitudinal strain was -19.4% (normal) cis. Stage I diastolic dysfunction was observed. Pulmonary artery pressure was 27 mmHg. Had staging CTs scans that suggested lung metastases. Not able to biopsy. Previous therapy: 1) Taxotere/Herceptin/Perjeta. 2) Herceptin/Perjeta. Discontinued 01/2021 for progressive disease. 3) Kadcyla. 02/2021 through 07/2021. Discontinued secondary to significant worsening of neuropathy. Current therapy: 1) Enhertu. Interim history: All below reviewed and verified by me today 11/10/22: Still with constipation the first few days after her dose which is relieved with prune juice. No cough or shortness of breath. Occasional morning cough when she first gets up secondary to sinusdrainage. She has been active outside and is getting ready to plant a garden. No worsening dyspnea on exertion. No palpitation or exertional chest pain. Subcutaneous metastasis on the anterior lower chest wall no longer palpable to her. 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 Symptoms remain well controlled. No progression. Only new complaint is SI pain on left when walking. Can have a numb sensation localized to that area as well. PMH, medications and allergies personally reviewed by me today. Any changes documented in appropriate section. ROS: Constitutional: Denies episodes of fever and night sweats. Not significantly fatigued. Normal appetite. Neuro: Denies MAYFIELD, vertigo, dizziness and imbalance. HEENT: No recent change in voice, vision or hearing. Resp: See above. CVS: See above. GI: Denies dysgeusia. Denies symptoms of stomatitis. Denies dysphagia and odynophagia. Denies abdominal pain. : Denies dysuria or gross hematuria. No symptoms of bladder outlet obstruction. Endo: Denies hot flashes. Denies polyuria and polydipsia. Denies heat and cold intolerance. Musculoskeletal: Denies bone, back, joint and muscular pain. Derm: Denies rash. Denies jaundice and diffuse pruritis. Heme: Denies unusual bleeding and unexplained bruising. Psych: Normal mood. PHYSICAL EXAM: Vitals: Blood pressure 106/56, pulse 68, temperature 36.9 C (98.4 F), temperature source Temporal, resp. rate 12, height 154.9 cm (5' 1), weight 85.7 kg (189 lb), SpO2 95 %. Well-appearing and in no acute distress. EYES: Sclerae are anicteric bilaterally. LYMPHATIC: There is no palpable cervical, supraclavicular, axillary adenopathy. RESPIRATORY: Normal vesicular breath sounds in all barnes. No rales, wheezes or rhonchi. CARDIOVASCULAR: Rhythm is regular. 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 ABDOMEN: The abdomen is nondistended. Extremities: No swelling or edema. SKIN: Resolution of subcutaneous metastasis near Xyvoid. NEUROLOGIC: smelter liner II-XII are grossly intact. Absent patellar DTRs. MS: No tenderness over the left SI joint or iliac crest. No mass. LABS: Component Latest Ref Rng & Units 11/10/2022 WBC 3.70 - 11.00 k/uL 3.67 (L) RBC 3.90 - 5.20 m/uL 3.40 (L) Hemoglobin 11.5 - 15.5 g/dL 12.4 Hematocrit 36.0 - 46.0 % 36.8 MCV 80.0 - 100.0 fL 108.2 (H) MCH 26.0 - 34.0 pg 36.5 (H) MCHC 30.5 - 36.0 g/dL 33.7 RDW-CV 11.5 - 15.0 % 15.4 (H) Platelet Count 150 - 400 k/uL 187 MPV 9.0 - 12.7 fL 9.5 Neut% % 47.2 Abs Neut (ANC) 1.45 - 7.50 k/uL 1.73 Lymph% % 31.9 Abs Lymph 1.00 - 4.00 k/uL 1.17 Cotton% % 12.5 Abs Cotton <0.87 k/uL 0.46 Eosin% % 7.6 Abs Eosin <0.46 k/uL 0.28 Baso% % 0.8 Abs Baso <0.11 k/uL 0.03 Immature Gran % % 0.0 IMMATURE GRANS (ABS) <0.10 k/uL <0.03 NRBC /100 WBC 0.0 Absolute nRBC <0.01 k/uL <0.01 DTYPE Auto Protein, Total 6.3 - 8.0 g/dL 6.0 (L) Albumin 3.9 - 4.9 g/dL 3.8 (L) Calcium 8.5 - 10.2 mg/dL 9.6 Bilirubin, Total 0.2 - 1.3 mg/dL 0.5 Alkaline Phosphatase 34 - 123 U/L 183 (H) AST 13 - 35 U/L 33 ALT 7 - 38 U/L 20 Glucose 74 - 99 mg/dL 114 (H) BUN 7 - 21 mg/dL 12 Creatinine 0.58 - 0.96 mg/dL 1.01 (H) Sodium 136 - 144 mmol/L 142 Potassium 3.7 - 5.1 mmol/L 4.4 Chloride 97 - 105 mmol/L 106 (H) CO2 22 - 30 mmol/L 29 Anion Gap 9 - 18 mmol/L 7 (L) eGFR >=60 mL/min/1.73m 60 ASSESSMENT/PLAN: (C50.311, Z17.0) Malignant neoplasm of lower-inner quadrant of right breast of female, estrogen receptor positive (HCC) (primary encounter diagnosis) (C79.51) Bone metastases (HCC) (C78.01, C78.02) Malignant neoplasm metastatic to both lungs (HCC) (I42.7, T45.1X5A) Chemotherapy-induced cardiomyopathy (HCC) Assessment: -Originally pT2 pN0(sln) MX ER positive (9%, very weak) WV negative HER overexpressed stage IIA invasive ductal carcinoma the right breast. -Recurrent pT2(m) pN0 (none of 5 LNs) MX ER +(15%, weak intensity)/WV negative (0%) HER2 3+ invasive ductal carcinoma the right breast while on AI (anastrozole). Posterior margin positive--more thanjust focal according to pathologist. Pectoralis fascia rem she calixto. Staging workup revealed multiple lung metastases, not biopsy proven. -Kadcyla discontinued secondary to sudden worsening of neuropathy. -PET showed PD from lung metastases as well as one cutaneous metastasis. No bone metastases. -Tolerating Enhertu overall very well with exception of constipation that is manageable with prune juice. No symptoms of pneumonitis. -She has no symptoms of cardiomyopathy. Blood pressure remains well controlled. -Reviewed today's lab work. Plan: -Continue metoprolol to 25 mg BID. -Continue Cozaar 100 mg daily. -Continue Lyrica 150 mg at HS. -Zometa to every 3 months (originally started for hypercalcemia). -US thyroid next February. -Continue Enhertu. -CT in about 3 months. -Due for echo in 3 months. -Continue follow-up with Dr. Galeano. -Previously stopped IBU for increase in serum Cr. -Continue potassium chloride 20 mEq daily. -Due for left breast mammogram 09/2022. -Plain film SI joints and lumbar spine. Potential MRI based on those results. (G62.0, T45.1X5A) Chemotherapy-induced neuropathy (HCC) Assessment: -Kadcyla recently discontinued secondary to sudden worsening of neuropathy. -No subjective change. Symptoms well controlled with Lyrica. Plan: -Continue Lyrica 150 mg twice daily. Portions of this documentation were copied and pasted from previous office visit notes in order to provide a cohesive continuity of the history. The note has been reviewed and edited and updated as necessary. I spent a total of 20 minutes on the date of the service which included preparing to see the patient, [id number] patient care, completing clinical documentation, obtaining and/or reviewing separately obtained history, performing a medically appropriate examination, counseling and educating the pat ient/family/caregiver, ordering medications, tests, or procedures, communicating with other HCPs (not separately reported), and communicating results to the patient/family/caregiver. Rip Rivers DO [facility] History of Present illness Narrative* Ana Velásquez RN - 11/10/2022 9:31 AM EDT Patient is here for IVAD port flush/blood draw. IVAD is located in left upper chest. Site cleansed with Chloraprep IVAD accessed with a #20 gauge 3/4 non-coring Gripper needle Flush with 5cc's Normal Saline. Blood Return: Good. 10 cc's blood aspirated and discarded. Blood drawn for CBC and CMP. Flushed with: 20 ml Normal Saline and 5 ml Heparin Lock Flush. Non-coring needle removed. Paper tape applied to puncture site. Site negative for redness, edema or tenderness. Patient tolerated procedure well. Ana Velásquez RN documented [facility] Miscellaneous Notes* Telephone Encounter - Chrissie Lama LPN - 11/09/2022 8:58 AM EDT Left detailed message on identified voicemail echo resulted as normal. Chrissie Lama LPN documented [facility] this [facility]05-[facility] History of Present illness Narrative* Rip Rivers DO - 10/20/2022 10:44 AM EDT Diagnosis: 1) Metastatic recurrence of ER positive, WV negative, HER2 positive breast cancer. 2) Cardiomyopathy. HPI: The patient is a 67 year old female who discovered a lump on the lower inner portion of her right breast in the fall of 2015. She was seen at [facility] and underwent a right sided core biopsy on 02/16/2016 by interventional radiology. The tissue specimen demonstrated invasive ductal carcinoma, Yohan grade 2. ERpositive (90%, very weak) and WV negative (0%). HER-2 was quantified at 3+. She underwent a right sided lumpectomy and right axillary sentinel lymph node dissection on 02/26/2016. Final pathology demonstrated that within the lumpectomy specimen there was a 2.5 cm single focus ofinvasive carcinoma. DCIS was present comprising about 10% [...] 3) Nerlyx-stopped d/t diarrhea. Last dose of neratinib . I'm never taking that again. Seen here in early March for complaint of right breast fullness and tenderness. Diagnostic mammogram done on 03/07/2019 did not demonstrate a mass within the breast however on ultrasound there was a0.8 cm x 0.6 cm x 0.9 cm lobulated mass with an indistinct margin in the right breast at 1:00 anterior depth 6 cm in the nipple. It was lobulated and hypoechoic with internal echoes. This corresponded to the tender area. There was also a 1.2 x 0.9 x 2 cm lobulated mass with a circumscribed margin in the right breast at 2:00 anterior depth 7 cm from the nipple. It also was hypoechoic with internalechoes. And it also was tender on exam. Patient next underwent ultrasound-guided right breast needle core biopsy 2 on 03/22/2019. Pathology: MICROSCOPIC DIAGNOSIS A. Right breast at 1 o clock, core biopsy: Invasive ductal carcinoma with the following characteristics: Maximal length - 10 mm Nuclear grade - 3/3 Other findings - ductal carcinoma in situ, nuclear 3/3 with focal comedo necrosis. B. Right breast at 2 o clock, core biopsy: Invasive ductal carcinoma with the following characteristics: Maximal length - 1.2 mm Nuclear grade - 2-3/3 ANTIBODY / CLONE RESULT Block A P53 (DO-7) positive, >90% Ki-67 (30-9) positive, 12% CK8 ([id number]) positive CK5-6 (D5 & 1684) negative Calponin-1 (GR558W) negative P40 (BC28) negative E-Cad (ECH-6) positive MORPHOMETRIC ANALYSIS ER (clone 6F11) 15%, weak intensity WV (clone 16/1E2) 0% Her-2Neu (clone CB11) 3+ Block B Calponin-1 (QI202D) negative P40 (BC28) negative CK8 (94bamgX80) positive INTERPRETATION: A. Right breast 1 o clock, biopsy: Invasive ductal carcinoma, grade 3/3. Positive for estrogen receptors (favorable prognostic indicator). Negative for progesterone receptors (unfavorable prognostic indicator). Positive for overexpression of UOL7lpn. B. Right breast 2 o clock, biopsy: Invasive ductal carcinoma, grade 2-3/3. Then underwent right breast modified mastectomy along with axillary lymph node dissection on 04/02/2019. Pathology: MICROSCOPIC DIAGNOSIS Right breast, modified radical mastectomy: Invasive ductal carcinoma x2. Ductal carcinoma in situ. Five out of five lymph nodes, negative for metastatic carcinoma. Hyalinized fibroadenomas x2. See cancer summary below. SJ:breann 04/05/19 INVASIVE BREAST CANCER SUMMARY: Specimen - total breast (including nipple and skin). Procedure - total mastectomy (including nipple and skin). Lymph node sampling - axillary dissection Specimen integrity - single, intact specimen Specimen laterality - right Tumor site - inner quadrant Tumor size: size of largest invasive carcinoma - 3.5 x 1.5 x 1.5 cm Tumor focality - two foci of invasive carcinoma Size of individual foci - 3.5 x 1.5 x 1.5 cm and 2 x 2 x 1 cm Macroscopic and Microscopic extent of tumor: Skin - invasive carcinoma does not invade into the dermis or epidermis. Nipple - DCIS does not involve nipple epidermis. Skeletal muscle - Skeletal muscle is present and is free of carcinoma. Ductal carcinoma in situ (DCIS) - present Extensive intraductal component (EIC) - negative Estimated size (extent) of DCIS - DCIS is present in the area of invasive carcinoma and comprise about 5% of the total tumor volume. Number of blocks with DCIS - 7 Number of blocks examined (breast tissue) - 16 Architectural patterns - cribriform and comedo Nuclear grade - grade 3 (high) Necrosis - present, central (expansive comedo necrosis) Lobular carcinoma in situ (LCIS) - not identified Histologic type of invasive carcinoma - invasive ductal carcinoma (no special type) Histologic Grade (Sorento grade): Glandular/tubular differentiation - score 3 Nuclear pleomorphism - score 3 Mitotic count - score 2 Overall grade - 3 (score of 8) Both tumor show similar morphologic features. Margins - larger focus of invasive carcinoma is present at the closest posterior margin of the specimen. - smaller focus of invasive carcinoma is 1.7 cm away from closest superior margin. - Margins are free of ductal carcinoma in situ. Treatment effect: Response to presurgical (neoadjuvant) therapy - no known presurgical therapy. Lymph-Vascular invasion - not identified Dermal lymph-vascular invasion - not identified Lymph nodes: Number of sentinel lymph nodes examined - 0 Total number of lymph nodes examined (sentinel and nonsentinel) - 5 Number of lymph nodes with macrometastases, micrometastases and isolated tumor cells - 0 Distant metastasis - not applicable Additional pathologic findings - hyalinized fibroadenomas x2 with focal calcifications. See comment. - Dense fibrosis and lobular involution. Ancillary studies - previously performed on section of tumor ([id number] / [id number]). ER - positive (15%, weak intensity) WV - negative (0%) Her2 krista - positive (3+) Microcalcifications - present in both invasive carcinoma and non-neoplastic tissue. Clinical history - Please make reference to previous specimen ([id number]) right breast at 1 o clock and right breast at 2 o clock core biopsies with diagnosis of invasive ductal carcinoma. PATHOLOGIC STAGE: pT2(m) pN0 Mx Evidently the larger focus of cancer was down to the chest wall muscle. Other significant past medical history was asymptomatic decline in ejection fraction 1 receiving Herceptin. Serial echocardiograms--March 2016 at that time he demonstrated ejection fraction of 72%.Another echocardiogram in September 2016 demonstrated ejection fraction of 55%. In November 2016 was 50% and in May 2017 was 45% with mild global hypokinesis. managed with beta-ruth and ARB. Most recent echocardiogram from May 2018 revealed normal left ventricular size with systolic function at lower limits of normal estimated at 53%. The global longitudinal strain was -19.4% (normal) cis. Stage I diastolic dysfunction was observed. Pulmonary artery pressure was 27 mmHg. Had staging CTs scans that suggested lung metastases. Not able to biopsy. Previous therapy: 1) Taxotere/Herceptin/Perjeta. 2) Herceptin/Perjeta. Discontinued 01/2021 for progressive disease. 3) Kadcyla. 02/2021 through 07/2021. Discontinued secondary to significant worsening of neuropathy. Current therapy: 1) Enhertu. Interim history: Still with constipation the first few days after her dose which is relieved with prune juice. No cough or shortness of breath. Occasional morning cough when she first gets up secondary to sinusdrainage. She has been active outside and is getting ready to plant a garden. No worsening dyspnea on exertion. No palpitation or exertional chest pain. Subcutaneous metastasis on the anterior lower chest wall no longer palpable to her. 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 Symptoms remain well controlled. No progression. PMH, medications and allergies personally reviewed by me today. Any changes documented in appropriate section. ROS: Constitutional: Denies episodes of fever and night sweats. Not significantly fatigued. Normal appetite. Neuro: Denies [place], vertigo, dizziness and imbalance. HEENT: No recent change in voice, vision or hearing. Resp: See above. CVS: See above. GI: Denies dysgeusia. Denies symptoms of stomatitis. Denies dysphagia and odynophagia. Denies abdominal pain. : Denies dysuria or gross hematuria. No symptoms of bladder outlet obstruction. Endo: Denies hot flashes. Denies polyuria and polydipsia. Denies heat and cold intolerance. Musculoskeletal: Denies bone, back, joint and muscular pain. Derm: Denies rash. Denies jaundice and diffuse pruritis. Heme: Denies unusual bleeding and unexplained bruising. Psych: Normal mood. PHYSICAL EXAM: Vitals: Blood pressure 119/61, pulse 60, temperature 36.9 C (98.4 F), weight 86.2 kg (190 lb), [id number] %. Well-appearing and in no acute distress. EYES: Sclerae are anicteric bilaterally. LYMPHATIC: There is no palpable cervical, supraclavicular, axillary adenopathy. RESPIRATORY: Normal vesicular breath sounds in all barnes. No rales, wheezes or rhonchi. CARDIOVASCULAR: Rhythm is regular. 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 ABDOMEN: The abdomen is nondistended. Extremities: No swelling or edema. SKIN: Resolution of subcutaneous metastasis near Xyvoid. NEUROLOGIC: smelter liner II-XII are grossly intact. Absent patellar DTRs. LABS: Component Latest Ref Rng & Units 10/18/2022 WBC 3.70 - 11.00 k/uL 3.86 RBC 3.90 - 5.20 m/uL 3.42 (L) Hemoglobin 11.5 - 15.5 g/dL 12.6 Hematocrit 36.0 - 46.0 % 36.4 MCV 80.0 - 100.0 fL 106.4 (H) MCH 26.0 - 34.0 pg 36.8 (H) MCHC 30.5 - 36.0 g/dL 34.6 RDW-CV 11.5 - 15.0 % 15.2 (H) Platelet Count 150 - 400 k/uL 173 MPV 9.0 - 12.7 fL 9.3 Neut% % 52.3 Abs Neut (ANC) 1.45 - 7.50 k/uL 2.02 Lymph% % 29.8 Abs Lymph 1.00 - 4.00 k/uL 1.15 Cotton% % 10.6 Abs Cotton <0.87 k/uL 0.41 Eosin% % 6.5 Abs Eosin <0.46 k/uL 0.25 Baso% % 0.5 Abs Baso <0.11 k/uL <0.03 Immature Gran % % 0.3 IMMATURE GRANS (ABS) <0.10 k/uL <0.03 NRBC /100 WBC 0.0 Absolute nRBC <0.01 k/uL <0.01 DTYPE Auto Protein, Total 6.3 - 8.0 g/dL 6.1 (L) Albumin 3.9 - 4.9 g/dL 3.9 Calcium 8.5 - 10.2 mg/dL 9.8 Bilirubin, Total 0.2 - 1.3 mg/dL 0.5 Alkaline Phosphatase 34 - 123 U/L 204 (H) AST 13 - 35 U/L 39 (H) ALT 7 - 38 U/L 25 Glucose 74 - 99 mg/dL 99 BUN 7 - 21 mg/dL 13 Creatinine 0.58 - 0.96 mg/dL 0.90 Sodium 136 - 144 mmol/L 139 Potassium 3.7 - 5.1 mmol/L 4.0 Chloride 97 - 105 mmol/L 105 CO2 22 - 30 mmol/L 27 Anion Gap 9 - 18 mmol/L 7 (L) eGFR >=60 mL/min/1.73m 69 ASSESSMENT/PLAN: (C50.311, Z17.0) Malignant neoplasm of lower-inner quadrant of right breast of female, estrogen receptor positive (HCC) (primary encounter diagnosis) (C79.51) Bone metastases (HCC) (C78.01, C78.02) Malignant neoplasm metastatic to both lungs (HCC) (I42.7, T45.1X5A) Chemotherapy-induced cardiomyopathy (HCC) Assessment: -Originally pT2 pN0(sln) MX ER positive (9%, very weak) WV negative HER overexpressed stage IIA invasive ductal carcinoma the right breast. -Recurrent pT2(m) pN0 (none of 5 LNs) MX ER +(15%, weak intensity)/WV negative (0%) HER2 3+ invasive ductal carcinoma the right breast while on AI (anastrozole). Posterior margin positive--more thanjust focal according to pathologist. Pectoralis fascia rem she calixto. Staging workup revealed multiple lung metastases, not biopsy proven. -Kadcyla discontinued secondary to sudden worsening of neuropathy. -PET showed PD from lung metastases as well as one cutaneous metastasis. No bone metastases. -Tolerating Enhertu overall very well with exception of constipation that is manageable with prune juice. No symptoms of pneumonitis. -She has no symptoms of cardiomyopathy. Blood pressure remains well controlled. -Reviewed today's lab work. Plan: -Continue metoprolol to 25 mg BID. -Continue Cozaar 100 mg daily. -Continue Lyrica 150 mg at HS. -Zometa to every 3 months (originally started for hypercalcemia). -US thyroid next February. -Continue Enhertu. -CT in about 3 months if SD on present scans (not read yet). -Due for echo--will order at [facility]. -Continue follow-up with Dr. Galeano. -Previously stopped IBU for increase in serum Cr. -Continue potassium chloride 20 mEq daily. -Due for left breast mammogram 09/2022. (G62.0, T45.1X5A) Chemotherapy-induced neuropathy (HCC) Assessment: -Kadcyla recently discontinued secondary to sudden worsening of neuropathy. -No subjective change. Symptoms well controlled with Lyrica. Plan: -Continue Lyrica 150 mg twice daily. Portions of this documentation were copied and pasted from previous office visit notes in order to provide a cohesive continuity of the history. The note has been reviewed and edited and updated as necessary. I spent a total of 25 minutes on the date of the service which included preparing to see the patient, [id number] patient care, completing clinical documentation, obtaining and/or reviewing separately obtained history, performing a medically appropriate examination, counseling and educating the pat ient/family/caregiver, ordering medications, tests, or procedures, communicating with other HCPs (not separately reported), and communicating results to the patient/family/caregiver. Rip Rivers DO [facility] History of Present illness Narrative* Adriana Thomas RT(R) - 10/18/2022 11:00 AM EDT Radiology Service Progress Note PATIENT NAME: Renate Christiansen DATE OF SERVICE: October 18, 2022 TIME: 2:35 PM PATIENT IDENTITY VERIFICATION COMPLETED USING TWO (2) IDENTIFIERS: Name and Date of confirmedby patient verbally. FALL SCREENING: Has the patient had 2 falls in the last year or 1 fall with injury or currently using an Ambulatory Assistive Device (Walker, Cane, Wheelchair, Crutches, etc.)? No PATIENT GENDER DATA: Female. status: : No status: NO. PATIENT RELEVANT IMPLANT DATA REVIEWED: Yes RADIOLOGY DEPARTMENT: CT; Exam(s) Completed: Chest Abdomen Pelvis PERIPHERAL IV DATA: power port accessed by [id number] SIGNED BY: RT Ashley(R) October 18, 2022 2:35 PM documented in this [facility]04-[facility] Miscellaneous Notes* Telephone Encounter - Jazlyn Harding LPN - 09/29/2022 8:06 AM EDT Patient has been identified by name and date of : Yes Requested Prescriptions Pending Prescriptions Disp Refills lidocaine-prilocaine (EMLA) 2.5-2.5 % cream 15 g 3 Sig: Apply to affected area as needed. RX INSTRUCTIONS: Patient aware RX will be sent to pharmacy. No need to notify patient. Jazlyn Harding LPN documented in this [facility] History of Present illness Narrative* Morena Doe RT(R) - 09/22/2022 3:30 PM EDT Radiology Service Progress Note PATIENT NAME: Renate Christiansen DATE OF SERVICE: September 22, 2022 TIME: 3:11 PM PATIENT IDENTITY VERIFICATION COMPLETED USING TWO (2) IDENTIFIERS: Name and Date of confirmedby patient verbally. FALL SCREENING: Has the patient had 2 falls in the last year or 1 fall with injury or currently using an Ambulatory Assistive Device (Walker, Cane, Wheelchair, Crutches, etc.)? No PATIENT GENDER DATA: Female. status: : No status: NO. PATIENT RELEVANT IMPLANT DATA REVIEWED: Not Applicable RADIOLOGY DEPARTMENT: Mammography PERIPHERAL IV DATA: Not applicable SIGNED BY: RT Yonathan(R) September 22, 2022 3:11 PM documented in this [facility] History of Present illness Narrative* Rip Rivers DO - 09/08/2022 11:06 AM EDT Diagnosis: 1) Metastatic recurrence of ER positive, WV negative, HER2 positive breast cancer. 2) Cardiomyopathy. HPI: The patient is a 66 year old female who discovered a lump on the lower inner portion of her right breast in the fall of 2015. She was seen at [facility] and underwent a right sided core biopsy on 02/16/2016 by interventional radiology. The tissue specimen demonstrated invasive ductal carcinoma, Yohan grade 2. ERpositive (90%, very weak) and WV negative (0%). HER-2 was quantified at 3+. She underwent a right sided lumpectomy and right axillary sentinel lymph node dissection on 02/26/2016. Final pathology demonstrated that within the lumpectomy specimen there was a 2.5 cm single focus ofinvasive carcinoma. DCIS was present comprising about 10% [...] 3) Nerlyx-stopped d/t diarrhea. Last dose of neratinib . I'm never taking that again. Seen here in early March for complaint of right breast fullness and tenderness. Diagnostic mammogram done on 03/07/2019 did not demonstrate a mass within the breast however on ultrasound there was a0.8 cm x 0.6 cm x 0.9 cm lobulated mass with an indistinct margin in the right breast at 1:00 anterior depth 6 cm in the nipple. It was lobulated and hypoechoic with internal echoes. This corresponded to the tender area. There was also a 1.2 x 0.9 x 2 cm lobulated mass with a circumscribed margin in the right breast at 2:00 anterior depth 7 cm from the nipple. It also was hypoechoic with internalechoes. And it also was tender on exam. Patient next underwent ultrasound-guided right breast needle core biopsy 2 on 03/22/2019. Pathology: MICROSCOPIC DIAGNOSIS A. Right breast at 1 o clock, core biopsy: Invasive ductal carcinoma with the following characteristics: Maximal length - 10 mm Nuclear grade - 3/3 Other findings - ductal carcinoma in situ, nuclear 3/3 with focal comedo necrosis. B. Right breast at 2 o clock, core biopsy: Invasive ductal carcinoma with the following characteristics: Maximal length - 1.2 mm Nuclear grade - 2-3/3 ANTIBODY / CLONE RESULT Block A P53 (DO-7) positive, >90% Ki-67 (30-9) positive, 12% CK8 (28otpsN09) positive CK5-6 (D5 & 1684) negative Calponin-1 (FY167B) negative P40 (BC28) negative E-Cad (ECH-6) positive MORPHOMETRIC ANALYSIS ER (clone 6F11) 15%, weak intensity WV (clone 16/1E2) 0% Her-2Neu (clone CB11) 3+ Block B Calponin-1 (WS242X) negative P40 (BC28) negative CK8 (37xkyrT48) positive INTERPRETATION: A. Right breast 1 o clock, biopsy: Invasive ductal carcinoma, grade 3/3. Positive for estrogen receptors (favorable prognostic indicator). Negative for progesterone receptors (unfavorable prognostic indicator). Positive for overexpression of [id number]. B. Right breast 2 o clock, biopsy: Invasive ductal carcinoma, grade 2-3/3. Then underwent right breast modified mastectomy along with axillary lymph node dissection on 04/02/2019. Pathology: MICROSCOPIC DIAGNOSIS Right breast, modified radical mastectomy: Invasive ductal carcinoma x2. Ductal carcinoma in situ. Five out of five lymph nodes, negative for metastatic carcinoma. Hyalinized fibroadenomas x2. See cancer summary below. SJ:breann 04/05/19 INVASIVE BREAST CANCER SUMMARY: Specimen - total breast (including nipple and skin). Procedure - total mastectomy (including nipple and skin). Lymph node sampling - axillary dissection Specimen integrity - single, intact specimen Specimen laterality - right Tumor site - inner quadrant Tumor size: size of largest invasive carcinoma - 3.5 x 1.5 x 1.5 cm Tumor focality - two foci of invasive carcinoma Size of individual foci - 3.5 x 1.5 x 1.5 cm and 2 x 2 x 1 cm Macroscopic and Microscopic extent of tumor: Skin - invasive carcinoma does not invade into the dermis or epidermis. Nipple - DCIS does not involve nipple epidermis. Skeletal muscle - Skeletal muscle is present and is free of carcinoma. Ductal carcinoma in situ (DCIS) - present Extensive intraductal component (EIC) - negative Estimated size (extent) of DCIS - DCIS is present in the area of invasive carcinoma and comprise about 5% of the total tumor volume. Number of blocks with DCIS - 7 Number of blocks examined (breast tissue) - 16 Architectural patterns - cribriform and comedo Nuclear grade - grade 3 (high) Necrosis - present, central (expansive comedo necrosis) Lobular carcinoma in situ (LCIS) - not identified Histologic type of invasive carcinoma - invasive ductal carcinoma (no special type) Histologic Grade (Sorento grade): Glandular/tubular differentiation - score 3 Nuclear pleomorphism - score 3 Mitotic count - score 2 Overall grade - 3 (score of 8) Both tumor show similar morphologic features. Margins - larger focus of invasive carcinoma is present at the closest posterior margin of the specimen. - smaller focus of invasive carcinoma is 1.7 cm away from closest superior margin. - Margins are free of ductal carcinoma in situ. Treatment effect: Response to presurgical (neoadjuvant) therapy - no known presurgical therapy. Lymph-Vascular invasion - not identified Dermal lymph-vascular invasion - not identified Lymph nodes: Number of sentinel lymph nodes examined - 0 Total number of lymph nodes examined (sentinel and nonsentinel) - 5 Number of lymph nodes with macrometastases, micrometastases and isolated tumor cells - 0 Distant metastasis - not applicable Additional pathologic findings - hyalinized fibroadenomas x2 with focal calcifications. See comment. - Dense fibrosis and lobular involution. Ancillary studies - previously performed on section of tumor ([id number] / [id number]). ER - positive (15%, weak intensity) WV - negative (0%) Her2 krista - positive (3+) Microcalcifications - present in both invasive carcinoma and non-neoplastic tissue. Clinical history - Please make reference to previous specimen ([id number]) right breast at 1 o clock and right breast at 2 o clock core biopsies with diagnosis of invasive ductal carcinoma. PATHOLOGIC STAGE: pT2(m) pN0 Mx Evidently the larger focus of cancer was down to the chest wall muscle. Other significant past medical history was asymptomatic decline in ejection fraction 1 receiving Herceptin. Serial echocardiograms--March 2016 at that time he demonstrated ejection fraction of 72%.Another echocardiogram in September 2016 demonstrated ejection fraction of 55%. In November 2016 was 50% and in May 2017 was 45% with mild global hypokinesis. managed with beta-ruth and ARB. Most recent echocardiogram from May 2018 revealed normal left ventricular size with systolic function at lower limits of normal estimated at 53%. The global longitudinal strain was -19.4% (normal) cis. Stage I diastolic dysfunction was observed. Pulmonary artery pressure was 27 mmHg. Had staging CTs scans that suggested lung metastases. Not able to biopsy. Previous therapy: 1) Taxotere/Herceptin/Perjeta. 2) Herceptin/Perjeta. Discontinued 01/2021 for progressive disease. 3) Kadcyla. 02/2021 through 07/2021. Discontinued secondary to significant worsening of neuropathy. Current therapy: 1) Enhertu. Interim history: All below reviewed and verified today 09/08/2022: Her only side effect from treatment remains constipation the first few days after her dose which isrelieved with prune juice. Last week had diarrhea for about 2-3 days after eating. Back to normal bowel habits. Verified again today (07/06/2022)--She denies cough (but endorses today has always had a little morning cough when first getting up and clearing post-nasal drip), wheezing, shortness of breath at rest, chest pain and pressure. No change in chronic dyspnea with heavy exertion. She is doing her ADLs and IADLs and chores around the house. Subcutaneous metastasis on the anterior lower chest wall no longer palpable to her. 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 Symptoms are well controlled. No progression. PMH, medications and allergies personally reviewed by me today. Any changes documented in appropriate section. ROS: Constitutional: Denies episodes of fever and night sweats. Not significantly fatigued. Normal appetite. Neuro: Denies MAYFIELD, vertigo, dizziness and imbalance. HEENT: No recent change in voice, vision or hearing. Resp: See above. CVS: See above. GI: Denies dysgeusia. Denies symptoms of stomatitis. Denies dysphagia and odynophagia. Denies abdominal pain. : Denies dysuria or gross hematuria. No symptoms of bladder outlet obstruction. Endo: Denies hot flashes. Denies polyuria and polydipsia. Denies heat and cold intolerance. Musculoskeletal: Denies bone, back, joint and muscular pain. Derm: Denies rash. Denies jaundice and diffuse pruritis. Heme: Denies unusual bleeding and unexplained bruising. Psych: Normal mood. PHYSICAL EXAM: Vitals: Blood pressure 114/62, pulse 64, weight 86.4 kg (190 lb 8 oz), SpO2 97 %. Well-appearing and in no acute distress. EYES: Sclerae are anicteric bilaterally. LYMPHATIC: There is no palpable cervical, supraclavicular, axillary adenopathy. RESPIRATORY: Inspiratory breath sounds are of normal intensity in all barnes. No rales, wheezes or rhonchi. CARDIOVASCULAR: Rhythm is regular. 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 Left breast--no mass appreciated. ABDOMEN: The abdomen is nondistended. Extremities: No swelling or edema. SKIN: Resolution of subcutaneous metastasis near Xyvoid. NEUROLOGIC: smelter liner II-XII are grossly intact. Absent patellar DTRs. LABS: Component Latest Ref Rng & Units 08/18/2022 09/08/2022 WBC 3.70 - 11.00 k/uL 3.72 4.18 RBC 3.90 - 5.20 m/uL 3.32 (L) 3.38 (L) Hemoglobin 11.5 - 15.5 g/dL 12.2 12.2 Hematocrit 36.0 - 46.0 % 35.7 (L) 36.4 MCV 80.0 - 100.0 fL 107.5 (H) 107.7 (H) MCH 26.0 - 34.0 pg 36.7 (H) 36.1 (H) MCHC 30.5 - 36.0 g/dL 34.2 33.5 RDW-CV 11.5 - 15.0 % 16.0 (H) 15.5 (H) Platelet Count 150 - 400 k/uL 202 204 MPV 9.0 - 12.7 fL 9.6 9.9 Neut% % 47.3 49.5 Abs Neut (ANC) 1.45 - 7.50 k/uL 1.76 2.07 Lymph% % 32.8 29.7 Abs Lymph 1.00 - 4.00 k/uL 1.22 1.24 Cotton% % 13.4 12.9 Abs Cotton <0.87 k/uL 0.50 0.54 Eosin% % 5.4 6.7 Abs Eosin <0.46 k/uL 0.20 0.28 Baso% % 0.8 1.0 Abs Baso <0.11 k/uL 0.03 0.04 Immature Gran % % 0.3 0.2 IMMATURE GRANS (ABS) <0.10 k/uL <0.03 <0.03 NRBC /100 WBC 0.0 0.0 Absolute nRBC <0.01 k/uL <0.01 <0.01 DTYPE Auto Auto Protein, Total 6.3 - 8.0 g/dL 5.9 (L) Albumin 3.9 - 4.9 g/dL 3.7 (L) Calcium 8.5 - 10.2 mg/dL 9.4 Bilirubin, Total 0.2 - 1.3 mg/dL 0.4 Alkaline Phosphatase 34 - 123 U/L 173 (H) AST 13 - 35 U/L 37 (H) ALT 7 - 38 U/L 22 Glucose 74 - 99 mg/dL 123 (H) BUN 7 - 21 mg/dL 10 Creatinine 0.58 - 0.96 mg/dL 0.91 Sodium 136 - 144 mmol/L 145 (H) Potassium 3.7 - 5.1 mmol/L 3.5 (L) Chloride 97 - 105 mmol/L 107 (H) CO2 22 - 30 mmol/L 27 Anion Gap 9 - 18 mmol/L 11 eGFR >=60 mL/min/1.73m 69 ASSESSMENT/PLAN: (C50.311, Z17.0) Malignant neoplasm of lower-inner quadrant of right breast of female, estrogen receptor positive (HCC) (primary encounter diagnosis) (C79.51) Bone metastases (HCC) (C78.01, C78.02) Malignant neoplasm metastatic to both lungs (HCC) (I42.7, T45.1X5A) Chemotherapy-induced cardiomyopathy (HCC) Assessment: -Originally pT2 pN0(sln) MX ER positive (9%, very weak) WV negative HER overexpressed stage IIA invasive ductal carcinoma the right breast. -Recurrent pT2(m) pN0 (none of 5 LNs) MX ER +(15%, weak intensity)/WV negative (0%) HER2 3+ invasive ductal carcinoma the right breast while on AI (anastrozole). Posterior margin positive--more thanjust focal according to pathologist. Pectoralis fascia rem she calixto. Staging workup revealed multiple lung metastases, not biopsy proven. -Kadcyla recently discontinued secondary to sudden worsening of neuropathy. -PET showed PD from lung metastases as well as one cutaneous metastasis. No bone metastases. -Tolerating Enhertu overall very well with exception of constipation that is manageable with prune juice. No symptoms of pneumonitis. -She has no symptoms of cardiomyopathy. Blood pressure remains well controlled. -She had a self-limited course of diarrhea last week lasting 2 to 3 days. -She was able to get potassium chloride packets and is tolerating much better. Plan: -Continue metoprolol to 25 mg BID. -Continue Cozaar 100 mg daily. -Continue Lyrica 150 mg at HS. -Zometa to every 3 months (originally started for hypercalcemia). -US thyroid next February. -Continue Enhertu. -CT in about 2 months. -Echocardiogram every 3 cycles. -Continue follow-up with Dr. Galeaon. -Previously stopped IBU for increase in serum Cr. -Continue potassium chloride 20 mEq daily. (Z12.31) Encounter for screening mammogram for malignant neoplasm of breast (primary Assessment: -Reviewed mammogram result. Asymmetry posterior breast deep to nipple. No palpable findings on exam. No calcifications. Plan: -Scheduled for diagnostic mammogram and ultrasound. (G62.0, T45.1X5A) Chemotherapy-induced neuropathy (HCC) Assessment: -Kadcyla recently discontinued secondary to sudden worsening of neuropathy. -No subjective change. Symptoms well controlled with Lyrica. Plan: -Continue Lyrica 150 mg twice daily. Portions of this documentation were copied and pasted from previous office visit notes in order to provide a cohesive continuity of the history. The note has been reviewed and edited and updated as necessary. I spent a total of 20 minutes on the date of the service which included preparing to see the patient, [id number] patient care, completing clinical documentation, obtaining and/or reviewing separately obtained history, performing a medically appropriate examination, counseling and educating the pat ient/family/caregiver, ordering medications, tests, or procedures, and communicating results to thepatient/family/caregiver. Rip Rivers DO documented in this encounter[facility]03-[facility]23 Miscellaneous Notes* Telephone Encounter - Tiffany Hager - 08/26/2022 9:45 AM EDT Patient informed. * Telephone Encounter - Alexia Stephens - 08/26/2022 9:40 AM EDT LM for patient to return call to schedule. When patient calls, please transfer to [facility] at [phone] to schedule diagnostic mammogram. Once transferred, please document and close this note. Alexia Stephens * Telephone Encounter - Jazlyn Harding LPN - 08/26/2022 9:08 AM EDT Patient is aware of all information. PSS- please contact patient to schedule as directed below. Jazlyn Harding LPN * Telephone Encounter - Jazlyn Harding LPN - 08/25/2022 9:23 AM EDT Left message for patient to contact office. Jazlyn Harding LPN * Telephone Encounter - Rip Rivers DO - 08/24/2022 7:08 PM EDT Can let her know that the radiologist requested magnification views and ultrasound of the left breast. There was an area of asymmetry which typically turns out to be the breast tissue folded on itself during the screening mammogram. Please schedule. Rip Rivers DO documented in this encounterWestern [facility]03-21-2023 Miscellaneous Notes* Letter - Mammography Coordinator - 08/24/2022 3:06 PM EDT August 25, 2022 PID: [id number] Renate Christiansen [address] [place] [address] Dear Ms. Christiansen, Your recent breast imaging exam on 08/23/2022 showed a possible finding that requires additional imaging studies for a complete evaluation. Most such findings are probably benign (not cancer). Your mammogram demonstrates that you have dense breast tissue, which could hide abnormalities. Dense breast tissue, in and of itself, is a relatively common condition. Therefore, this information is not provided to cause undue concern; rather, it is to raise your awareness and promote discussion with your health care provider regarding the presence of dense breast tissue in addition to other riskfactors. If you have a healthcare provider who ordered/prescribed your screening mammogram: Please call [phone] or [phone]: [phone] to schedule an appointment for your additional imaging (if youhave not already done so). If you DO NOT have a healthcare provider (ie you did not have an order/prescription for your screening mammogram): Please call to schedule an appointment for your additional imaging (if you have not already done so). You must have an order/prescription from your physician when calling to schedule your appointment. If your order/prescription is not electronic, you must bring the hard copy with you on the day of your exam to avoid delays. Your imaging studies and reports are kept on [facility] as part of your permanent medical record, and are available for your continuing care. Thank you for allowing us to help in meeting your health care needs. Sincerely, Dr. Pablo Interpreting Radiologist [facility] (Additional imaging) documented in this encounterWestern [facility] Hospital03-20-2023 History of Present illness Narrative* Annamaria Gonzales, Mammo Tech - 08/23/2022 1:30 PM EDT Radiology Service Progress Note PATIENT NAME: Renate Christiansen DATE OF SERVICE: August 23, 2022 TIME: 1:56 PM PATIENT IDENTITY VERIFICATION COMPLETED USING TWO (2) IDENTIFIERS: Name and Date of confirmedby patient verbally. FALL SCREENING: Has the patient had 2 falls in the last year or 1 fall with injury or currently using an Ambulatory Assistive Device (Walker, Cane, Wheelchair, Crutches, etc.)? No PATIENT GENDER DATA: Female. status: : No status: NO. PATIENT RELEVANT IMPLANT DATA REVIEWED: Not Applicable RADIOLOGY DEPARTMENT: Mammography PERIPHERAL IV DATA: Not applicable SIGNED BY: Annamaria Gonzales [employer] August 23, 2022 1:56 PM documented in this encounterWestern [facility]03-15-2023 History of Present illness Narrative* iRp Rivers, DO - 08/18/2022 10:47 AM EDT Diagnosis: 1) Metastatic recurrence of ER positive, WV negative, HER2 positive breast cancer. 2) Cardiomyopathy. HPI: The patient is a 66 year old female who discovered a lump on the lower inner portion of her right breast in the fall of 2015. She was seen at [facility] and underwent a right sided core biopsy on 02/16/2016 by interventional radiology. The tissue specimen demonstrated invasive ductal carcinoma, Sorento grade 2. ERpositive (90%, very weak) and WV negative (0%). HER-2 was quantified at 3+. She underwent a right sided lumpectomy and right axillary sentinel lymph node dissection on 02/26/2016. Final pathology demonstrated that within the lumpectomy specimen there was a 2.5 cm single focus ofinvasive carcinoma. DCIS was present comprising about 10% [...] 3) Nerlyx-stopped d/t diarrhea. Last dose of neratinib . I'm never taking that again. Seen here in early March for complaint of right breast fullness and tenderness. Diagnostic mammogram done on 03/07/2019 did not demonstrate a mass within the breast however on ultrasound there was a0.8 cm x 0.6 cm x 0.9 cm lobulated mass with an indistinct margin in the right breast at 1:00 anterior depth 6 cm in the nipple. It was lobulated and hypoechoic with internal echoes. This corresponded to the tender area. There was also a 1.2 x 0.9 x 2 cm lobulated mass with a circumscribed margin in the right breast at 2:00 anterior depth 7 cm from the nipple. It also was hypoechoic with internalechoes. And it also was tender on exam. Patient next underwent ultrasound-guided right breast needle core biopsy 2 on 03/22/2019. Pathology: MICROSCOPIC DIAGNOSIS A. Right breast at 1 o clock, core biopsy: Invasive ductal carcinoma with the following characteristics: Maximal length - 10 mm Nuclear grade - 3/3 Other findings - ductal carcinoma in situ, nuclear 3/3 with focal comedo necrosis. B. Right breast at 2 o clock, core biopsy: Invasive ductal carcinoma with the following characteristics: Maximal length - 1.2 mm Nuclear grade - 2-3/3 ANTIBODY / CLONE RESULT Block A P53 (DO-7) positive, >90% Ki-67 (30-9) positive, 12% CK8 (29oqmmP64) positive CK5-6 (D5 & 1684) negative Calponin-1 (ZH310D) negative P40 (BC28) negative E-Cad (ECH-6) positive MORPHOMETRIC ANALYSIS ER (clone 6F11) 15%, weak intensity WV (clone 16/1E2) 0% Her-2Neu (clone CB11) 3+ Block B Calponin-1 (OR874L) negative P40 (BC28) negative CK8 (19kowxU96) positive INTERPRETATION: A. Right breast 1 o clock, biopsy: Invasive ductal carcinoma, grade 3/3. Positive for estrogen receptors (favorable prognostic indicator). Negative for progesterone receptors (unfavorable prognostic indicator). Positive for overexpression of GBZ1gse. B. Right breast 2 o clock, biopsy: Invasive ductal carcinoma, grade 2-3/3. Then underwent right breast modified mastectomy along with axillary lymph node dissection on 04/02/2019. Pathology: MICROSCOPIC DIAGNOSIS Right breast, modified radical mastectomy: Invasive ductal carcinoma x2. Ductal carcinoma in situ. Five out of five lymph nodes, negative for metastatic carcinoma. Hyalinized fibroadenomas x2. See cancer summary below. SJ:breann 04/05/19 INVASIVE BREAST CANCER SUMMARY: Specimen - total breast (including nipple and skin). Procedure - total mastectomy (including nipple and skin). Lymph node sampling - axillary dissection Specimen integrity - single, intact specimen Specimen laterality - right Tumor site - inner quadrant Tumor size: size of largest invasive carcinoma - 3.5 x 1.5 x 1.5 cm Tumor focality - two foci of invasive carcinoma Size of individual foci - 3.5 x 1.5 x 1.5 cm and 2 x 2 x 1 cm Macroscopic and Microscopic extent of tumor: Skin - invasive carcinoma does not invade into the dermis or epidermis. Nipple - DCIS does not involve nipple epidermis. Skeletal muscle - Skeletal muscle is present and is free of carcinoma. Ductal carcinoma in situ (DCIS) - present Extensive intraductal component (EIC) - negative Estimated size (extent) of DCIS - DCIS is present in the area of invasive carcinoma and comprise about 5% of the total tumor volume. Number of blocks with DCIS - 7 Number of blocks examined (breast tissue) - 16 Architectural patterns - cribriform and comedo Nuclear grade - grade 3 (high) Necrosis - present, central (expansive comedo necrosis) Lobular carcinoma in situ (LCIS) - not identified Histologic type of invasive carcinoma - invasive ductal carcinoma (no special type) Histologic Grade (Yohan grade): Glandular/tubular differentiation - score 3 Nuclear pleomorphism - score 3 Mitotic count - score 2 Overall grade - 3 (score of 8) Both tumor show similar morphologic features. Margins - larger focus of invasive carcinoma is present at the closest posterior margin of the specimen. - smaller focus of invasive carcinoma is 1.7 cm away from closest superior margin. - Margins are free of ductal carcinoma in situ. Treatment effect: Response to presurgical (neoadjuvant) therapy - no known presurgical therapy. Lymph-Vascular invasion - not identified Dermal lymph-vascular invasion - not identified Lymph nodes: Number of sentinel lymph nodes examined - 0 Total number of lymph nodes examined (sentinel and nonsentinel) - 5 Number of lymph nodes with macrometastases, micrometastases and isolated tumor cells - 0 Distant metastasis - not applicable Additional pathologic findings - hyalinized fibroadenomas x2 with focal calcifications. See comment. - Dense fibrosis and lobular involution. Ancillary studies - previously performed on section of tumor ([id number] / [id number]). ER - positive (15%, weak intensity) WV - negative (0%) Her2 krista - positive (3+) Microcalcifications - present in both invasive carcinoma and non-neoplastic tissue. Clinical history - Please make reference to previous specimen ([id number]) right breast at 1 o clock and right breast at 2 o clock core biopsies with diagnosis of invasive ductal carcinoma. PATHOLOGIC STAGE: pT2(m) pN0 Mx Evidently the larger focus of cancer was down to the chest wall muscle. Other significant past medical history was asymptomatic decline in ejection fraction 1 receiving Herceptin. Serial echocardiograms--March 2016 at that time he demonstrated ejection fraction of 72%.Another echocardiogram in September 2016 demonstrated ejection fraction of 55%. In November 2016 was 50% and in May 2017 was 45% with mild global hypokinesis. managed with beta-ruth and ARB. Most recent echocardiogram from May 2018 revealed normal left ventricular size with systolic function at lower limits of normal estimated at 53%. The global longitudinal strain was -19.4% (normal) cis. Stage I diastolic dysfunction was observed. Pulmonary artery pressure was 27 mmHg. Had staging CTs scans that suggested lung metastases. Not able to biopsy. Previous therapy: 1) Taxotere/Herceptin/Perjeta. 2) Herceptin/Perjeta. Discontinued 01/2021 for progressive disease. 3) Kadcyla. 02/2021 through 07/2021. Discontinued secondary to significant worsening of neuropathy. Current therapy: 1) Enhertu. Interim history: All below reviewed and verified today 08/18/2022: Her only side effect from treatment remains constipation the first few days after her dose which isrelieved with prune juice. Verified again today (07/06/2022)--She denies cough, wheezing, shortness of breath at rest, chest pain and pressure. No change in chronic dyspnea with heavy exertion. She is doing her ADLs and IADLs and chores around the house. Subcutaneous metastasis on the anterior lower chest wall no longer palpable to her. 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 Symptoms are well controlled. No progression. PMH, medications and allergies personally reviewed by me today. Any changes documented in appropriate section. ROS: Constitutional: Denies episodes of fever and night sweats. Not significantly fatigued. Normal appetite. Neuro: Denies MAYFIELD, vertigo, dizziness and imbalance. HEENT: No recent change in voice, vision or hearing. Resp: See above. CVS: See above. GI: Denies dysgeusia. Denies symptoms of stomatitis. Denies dysphagia and odynophagia. Denies abdominal pain. : Denies dysuria or gross hematuria. No symptoms of bladder outlet obstruction. Endo: Denies hot flashes. Denies polyuria and polydipsia. Denies heat and cold intolerance. Musculoskeletal: Denies bone, back, joint and muscular pain. Derm: Denies rash. Denies jaundice and diffuse pruritis. Heme: Denies unusual bleeding and unexplained bruising. Psych: Normal mood. PHYSICAL EXAM: Vitals: Blood pressure 124/60, pulse 63, temperature 36.9 C (98.5 F), temperature source Temporal, height 156.2 cm (5' 1.5), weight 85.7 kg (189 lb). Well-appearing and in no acute distress. EYES: Sclerae are anicteric bilaterally. LYMPHATIC: There is no palpable cervical, supraclavicular, axillary adenopathy. RESPIRATORY: Inspiratory breath sounds are of normal intensity in all barnes. No rales, wheezes or rhonchi. CARDIOVASCULAR: Rhythm is regular. 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 ABDOMEN: The abdomen is nondistended. Extremities: No swelling or edema. SKIN: Resolution of subcutaneous metastasis near Xyvoid. NEUROLOGIC: smelter liner II-XII are grossly intact. Absent patellar DTRs. LABS: Component Latest Ref Rng & Units 07/06/2022 07/27/2022 08/18/2022 WBC 3.70 - 11.00 k/uL 4.39 3.61 (L) 3.72 RBC 3.90 - 5.20 m/uL 3.47 (L) 3.50 (L) 3.32 (L) Hemoglobin 11.5 - 15.5 g/dL 12.3 12.6 12.2 Hematocrit 36.0 - 46.0 % 36.3 36.6 35.7 (L) MCV 80.0 - 100.0 fL 104.6 (H) 104.6 (H) 107.5 (H) MCH 26.0 - 34.0 pg 35.4 (H) 36.0 (H) 36.7 (H) MCHC 30.5 - 36.0 g/dL 33.9 34.4 34.2 RDW-CV 11.5 - 15.0 % 15.7 (H) 15.7 (H) 16.0 (H) Platelet Count 150 - 400 k/uL 204 206 202 MPV 9.0 - 12.7 fL 9.4 9.4 9.6 Neut% % 48.0 50.4 47.3 Abs Neut (ANC) 1.45 - 7.50 k/uL 2.11 1.82 1.76 Lymph% % 35.3 32.7 32.8 Abs Lymph 1.00 - 4.00 k/uL 1.55 1.18 1.22 Cotton% % 10.3 10.2 13.4 Abs Cotton <0.87 k/uL 0.45 0.37 0.50 Eosin% % 5.5 6.1 5.4 Abs Eosin <0.46 k/uL 0.24 0.22 0.20 Baso% % 0.7 0.6 0.8 Abs Baso <0.11 k/uL 0.03 <0.03 0.03 Immature Gran % % 0.2 0.0 0.3 IMMATURE GRANS (ABS) <0.10 k/uL <0.03 <0.03 <0.03 NRBC /100 WBC 0.0 0.0 0.0 Absolute nRBC <0.01 k/uL <0.01 <0.01 <0.01 DTYPE Auto Auto Auto Protein, Total 6.3 - 8.0 g/dL 5.9 (L) 6.0 (L) 5.9 (L) Albumin 3.9 - 4.9 g/dL 3.7 (L) 3.6 (L) 3.7 (L) Calcium 8.5 - 10.2 mg/dL 9.3 8.9 9.4 Bilirubin, Total 0.2 - 1.3 mg/dL 0.4 0.5 0.4 Alkaline Phosphatase 34 - 123 U/L 185 (H) 178 (H) 173 (H) AST 13 - 35 U/L 38 (H) 42 (H) 37 (H) ALT 7 - 38 U/L 24 26 22 Glucose 74 - 99 mg/dL 142 (H) 98 123 (H) BUN 7 - 21 mg/dL 11 15 10 Creatinine 0.58 - 0.96 mg/dL 0.91 0.92 0.91 Sodium 136 - 144 mmol/L 143 140 145 (H) Potassium 3.7 - 5.1 mmol/L 3.9 4.0 3.5 (L) Chloride 97 - 105 mmol/L 104 104 107 (H) CO2 22 - 30 mmol/L 29 27 27 Anion Gap 9 - 18 mmol/L 10 9 11 eGFR >=60 mL/min/1.73m 69 68 69 ASSESSMENT/PLAN: (C50.311, Z17.0) Malignant neoplasm of lower-inner quadrant of right breast of female, estrogen receptor positive (HCC) (primary encounter diagnosis) (C79.51) Bone metastases (HCC) (C78.01, C78.02) Malignant neoplasm metastatic to both lungs (HCC) (I42.7, T45.1X5A) Chemotherapy-induced cardiomyopathy (HCC) Assessment: -Originally pT2 pN0(sln) MX ER positive (9%, very weak) WV negative HER overexpressed stage IIA invasive ductal carcinoma the right breast. -Recurrent pT2(m) pN0 (none of 5 LNs) MX ER +(15%, weak intensity)/WV negative (0%) HER2 3+ invasive ductal carcinoma the right breast while on AI (anastrozole). Posterior margin positive--more thanjust focal according to pathologist. Pectoralis fascia rem she calixto. Staging workup revealed multiple lung metastases, not biopsy proven. -Kadcyla recently discontinued secondary to sudden worsening of neuropathy. -PET showed PD from lung metastases as well as one cutaneous metastasis. No bone metastases. -Tolerating Enhertu overall very well with exception of constipation that is manageable with prune juice. No symptoms of pneumonitis. -She has no symptoms of cardiomyopathy. Blood pressure remains well controlled. Reviewed most recent echocardiogram results done at [facility]--scanned. No change from previous. EF normal. - Plan: -Continue metoprolol to 25 mg BID. -Continue Cozaar 100 mg daily. -Continue Lyrica 150 mg at HS. -Zometa to every 3 months (originally started for hypercalcemia). -US thyroid next February. -Continue Enhertu. -CT in about 3 months. -Echocardiogram every 3 cycles. -Continue follow-up with Dr. Galeano. -Previously stopped IBU for increase in serum Cr. (Z12.31) Encounter for screening mammogram for malignant neoplasm of breast (primary Assessment: -Overdue for left-sided screening mammogram. Plan: -Screening mammogram left breast scheduled for 08/23. (G62.0, T45.1X5A) Chemotherapy-induced neuropathy (HCC) Assessment: -Kadcyla recently discontinued secondary to sudden worsening of neuropathy. -No subjective change. Symptoms well controlled with Lyrica. Plan: -Continue Lyrica 150 mg twice daily. Portions of this documentation were copied and pasted from previous office visit notes in order to provide a cohesive continuity of the history. The note has been reviewed and edited and updated as necessary. I spent a total of 20 minutes on the date of the service which included preparing to see the patient, [id number] patient care, completing clinical documentation, obtaining and/or reviewing separately obtained history, performing a medically appropriate examination, ordering medications, tests, or procedures, and communicating results to the patient/family/caregiver. Rip Rivers DO documented in this encounterWestern [facility]02-24-[facility]23 Miscellaneous Notes* Telephone Encounter - Alexia Stephens - 07/30/2022 2:22 PM EST Spoke with patient and she wanted to wait until her next office visit to schedule CT's. Postponing this note to 08/18/22 for scheduling purposes. Alexia Stephens * Telephone Encounter - Rip Rivers DO - 07/30/2022 1:26 PM EST Orders filed. Rip Rivers DO * Telephone Encounter - Jazlyn Harding LPN - 07/30/2022 1:00 PM EST Patient is aware of all information. Dr. Rivers- please file CT orders. PSS- please schedule CT's after 3 more cycles. Jazlyn Harding LPN * Telephone Encounter - Rip Rivers DO - 07/29/2022 9:55 PM EST Overall cancer stable. Negligible tiny increase in one lung nodule by 2 mm. Stable disease. Continue therapy and CT after 3 more cycles. Rip Rivers DO documented in this encounterWestern [facility] Hospital02-23-2023 History of Present illness Narrative* Caity CoteEREN.TERRITORY DEVELOPMENT MANAGER - 07/29/2022 9:09 AM EST Chief Complaint Patient presents with: Established Patient HPI: Renate Christiansen is a 66 year old female who presents here today for evaluation for treatment today. Per Dr. Rivers's previous note: H/o discovered a lump on the lower inner portion of her right breast in the fall of 2015. She was seen at [facility] and underwent a right sided core biopsy on 02/16/2016 by interventional radiology. The tissue specimen demonstrated invasive ductal carcinoma, Yohan grade 2. ERpositive (90%, very weak) and WV negative (0%). HER-2 was quantified at 3+. She underwent a right sided lumpectomy and right axillary sentinel lymph node dissection on 02/26/2016. Final pathology demonstrated that within the lumpectomy specimen there was a 2.5 cm single focus ofinvasive carcinoma. DCIS was present comprising about 10% [...] 3) Nerlyx-stopped d/t diarrhea. Last dose of neratinib . I'm never taking that again. Seen here in early March for complaint of right breast fullness and tenderness. Diagnostic mammogram done on 03/07/2019 did not demonstrate a mass within the breast however on ultrasound there was a0.8 cm x 0.6 cm x 0.9 cm lobulated mass with an indistinct margin in the right breast at 1:00 anterior depth 6 cm in the nipple. It was lobulated and hypoechoic with internal echoes. This corresponded to the tender area. There was also a 1.2 x 0.9 x 2 cm lobulated mass with a circumscribed margin in the right breast at 2:00 anterior depth 7 cm from the nipple. It also was hypoechoic with internalechoes. And it also was tender on exam. Patient next underwent ultrasound-guided right breast needle core biopsy 2 on 03/22/2019. Pathology: MICROSCOPIC DIAGNOSIS A. Right breast at 1 o clock, core biopsy: Invasive ductal carcinoma with the following characteristics: Maximal length - 10 mm Nuclear grade - 3/3 Other findings - ductal carcinoma in situ, nuclear 3/3 with focal comedo necrosis. B. Right breast at 2 o clock, core biopsy: Invasive ductal carcinoma with the following characteristics: Maximal length - 1.2 mm Nuclear grade - 2-3/3 ANTIBODY / CLONE RESULT Block A P53 (DO-7) positive, >90% Ki-67 (30-9) positive, 12% CK8 ([id number]) positive CK5-6 (D5 & 1684) negative Calponin-1 (KG892P) negative P40 (BC28) negative E-Cad (ECH-6) positive MORPHOMETRIC ANALYSIS ER (clone 6F11) 15%, weak intensity WV (clone 16/1E2) 0% Her-2Neu (clone CB11) 3+ Block B Calponin-1 (QI252W) negative P40 (BC28) negative CK8 ([id number]) positive INTERPRETATION: A. Right breast 1 o clock, biopsy: Invasive ductal carcinoma, grade 3/3. Positive for estrogen receptors (favorable prognostic indicator). Negative for progesterone receptors (unfavorable prognostic indicator). Positive for overexpression of ZON9ovz. B. Right breast 2 o clock, biopsy: Invasive ductal carcinoma, grade 2-3/3. Then underwent right breast modified mastectomy along with axillary lymph node dissection on 04/02/2019. Pathology: MICROSCOPIC DIAGNOSIS Right breast, modified radical mastectomy: Invasive ductal carcinoma x2. Ductal carcinoma in situ. Five out of five lymph nodes, negative for metastatic carcinoma. Hyalinized fibroadenomas x2. See cancer summary below. SJ:breann 04/05/19 INVASIVE BREAST CANCER SUMMARY: Specimen - total breast (including nipple and skin). Procedure - total mastectomy (including nipple and skin). Lymph node sampling - axillary dissection Specimen integrity - single, intact specimen Specimen laterality - right Tumor site - inner quadrant Tumor size: size of largest invasive carcinoma - 3.5 x 1.5 x 1.5 cm Tumor focality - two foci of invasive carcinoma Size of individual foci - 3.5 x 1.5 x 1.5 cm and 2 x 2 x 1 cm Macroscopic and Microscopic extent of tumor: Skin - invasive carcinoma does not invade into the dermis or epidermis. Nipple - DCIS does not involve nipple epidermis. Skeletal muscle - Skeletal muscle is present and is free of carcinoma. Ductal carcinoma in situ (DCIS) - present Extensive intraductal component (EIC) - negative Estimated size (extent) of DCIS - DCIS is present in the area of invasive carcinoma and comprise about 5% of the total tumor volume. Number of blocks with DCIS - 7 Number of blocks examined (breast tissue) - 16 Architectural patterns - cribriform and comedo Nuclear grade - grade 3 (high) Necrosis - present, central (expansive comedo necrosis) Lobular carcinoma in situ (LCIS) - not identified Histologic type of invasive carcinoma - invasive ductal carcinoma (no special type) Histologic Grade (Sorento grade): Glandular/tubular differentiation - score 3 Nuclear pleomorphism - score 3 Mitotic count - score 2 Overall grade - 3 (score of 8) Both tumor show similar morphologic features. Margins - larger focus of invasive carcinoma is present at the closest posterior margin of the specimen. - smaller focus of invasive carcinoma is 1.7 cm away from closest superior margin. - Margins are free of ductal carcinoma in situ. Treatment effect: Response to presurgical (neoadjuvant) therapy - no known presurgical therapy. Lymph-Vascular invasion - not identified Dermal lymph-vascular invasion - not identified Lymph nodes: Number of sentinel lymph nodes examined - 0 Total number of lymph nodes examined (sentinel and nonsentinel) - 5 Number of lymph nodes with macrometastases, micrometastases and isolated tumor cells - 0 Distant metastasis - not applicable Additional pathologic findings - hyalinized fibroadenomas x2 with focal calcifications. See comment. - Dense fibrosis and lobular involution. Ancillary studies - previously performed on section of tumor ([id number] / [id number]). ER - positive (15%, weak intensity) WV - negative (0%) Her2 krista - positive (3+) Microcalcifications - present in both invasive carcinoma and non-neoplastic tissue. Clinical history - Please make reference to previous specimen ([id number]) right breast at 1 o clock and right breast at 2 o clock core biopsies with diagnosis of invasive ductal carcinoma. PATHOLOGIC STAGE: pT2(m) pN0 Mx Evidently the larger focus of cancer was down to the chest wall muscle. Other significant past medical history was asymptomatic decline in ejection fraction 1 receiving Herceptin. Serial echocardiograms--March 2016 at that time he demonstrated ejection fraction of 72%.Another echocardiogram in September 2016 demonstrated ejection fraction of 55%. In November 2016 was 50% and in May 2017 was 45% with mild global hypokinesis. managed with beta-ruth and ARB. Most recent echocardiogram from May 2018 revealed normal left ventricular size with systolic function at lower limits of normal estimated at 53%. The global longitudinal strain was -19.4% (normal) cis. Stage I diastolic dysfunction was observed. Pulmonary artery pressure was 27 mmHg. Had staging CTs scans that suggested lung metastases. Not able to biopsy. Previous therapy: 1) Taxotere/Herceptin/Perjeta. 2) Herceptin/Perjeta. Discontinued 01/2021 for progressive disease. 3) Kadcyla. 02/2021 through 07/2021. Discontinued secondary to significant worsening of neuropathy. Current therapy: 1) Enhertu. First cycle 09/10/21 No new concerns today. Pt. here today with her . Appetite:It's too good. Energy level:Good but I'm still tired. Denies fevers. Mouth:denies sores Resp:denies cough or sob Cardiac:denies chest pain/palpitations GI:denies abd pain, n/v, moving bowels regularly :denies dysuria/hematuria Extrem:denies pain Endo:denies hot flashes Neuro:+neuropathy to fingers/toes-stable Skin:denies rashes Heme:denies bleeding The ROS is otherwise negative. Past medical history, appointments, medications, allergies reviewed. No changes. EXAM: BP 119/56 Pulse 69 Temp 36.4 C (97.6 F) (Temporal) Wt 86.2 kg (190 lb) BMI 35.90 kg/m APPEARANCE Well appearing, alert, in no acute distress, well-hydrated, well nourished. HEART RRR with normal S1 and S2, no murmurs LUNG clear to auscultation LYMPH NODES No cervical lymphadenopathy, No supraclavicular lymphadenopathy, and No axillary lymphadenopathy. ABDOMEN bowel sounds normoactive, soft, non-tender EXTREMITIES No edema NEURO Awake, alert and oriented x 3, using a cane today, and No involuntary motions. SKIN Skin color, texture, turgor normal, no suspicious rashes or lesions LABS: Component Latest Ref Rng & Units 06/15/2022 07/06/2022 07/27/2022 WBC 3.70 - 11.00 k/uL 5.27 4.39 3.61 (L) RBC 3.90 - 5.20 m/uL 3.55 (L) 3.47 (L) 3.50 (L) Hemoglobin 11.5 - 15.5 g/dL 12.7 12.3 12.6 Hematocrit 36.0 - 46.0 % 37.3 36.3 36.6 MCV 80.0 - 100.0 fL 105.1 (H) 104.6 (H) 104.6 (H) MCH 26.0 - 34.0 pg 35.8 (H) 35.4 (H) 36.0 (H) MCHC 30.5 - 36.0 g/dL 34.0 33.9 34.4 RDW-CV 11.5 - 15.0 % 15.1 (H) 15.7 (H) 15.7 (H) Platelet Count 150 - 400 k/uL 204 204 206 MPV 9.0 - 12.7 fL 9.7 9.4 9.4 Neut% % 58.8 48.0 50.4 Abs Neut (ANC) 1.45 - 7.50 k/uL 3.10 2.11 1.82 Lymph% % 25.4 35.3 32.7 Abs Lymph 1.00 - 4.00 k/uL 1.34 1.55 1.18 Cotton% % 9.7 10.3 10.2 Abs Cotton <0.87 k/uL 0.51 0.45 0.37 Eosin% % 5.3 5.5 6.1 Abs Eosin <0.46 k/uL 0.28 0.24 0.22 Baso% % 0.6 0.7 0.6 Abs Baso <0.11 k/uL 0.03 0.03 <0.03 Immature Gran % % 0.2 0.2 0.0 IMMATURE GRANS (ABS) <0.10 k/uL <0.03 <0.03 <0.03 NRBC /100 WBC 0.0 0.0 0.0 Absolute nRBC <0.01 k/uL <0.01 <0.01 <0.01 DTYPE Auto Auto Auto Component Latest Ref Rng & Units 06/15/2022 07/06/2022 07/27/2022 Protein, Total 6.3 - 8.0 g/dL 6.0 (L) 5.9 (L) 6.0 (L) Albumin 3.9 - 4.9 g/dL 3.8 (L) 3.7 (L) 3.6 (L) Calcium 8.5 - 10.2 mg/dL 10.0 9.3 8.9 Bilirubin, Total 0.2 - 1.3 mg/dL 0.3 0.4 0.5 Alkaline Phosphatase 34 - 123 U/L 192 (H) 185 (H) 178 (H) AST 13 - 35 U/L 33 38 (H) 42 (H) ALT 7 - 38 U/L 20 24 26 Glucose 74 - 99 mg/dL 118 (H) 142 (H) 98 BUN 7 - 21 mg/dL 15 11 15 Creatinine 0.58 - 0.96 mg/dL 0.99 (H) 0.91 0.92 Sodium 136 - 144 mmol/L 141 143 140 Potassium 3.7 - 5.1 mmol/L 4.1 3.9 4.0 Chloride 97 - 105 mmol/L 106 (H) 104 104 CO2 22 - 30 mmol/L 27 29 27 Anion Gap 9 - 18 mmol/L 8 (L) 10 9 eGFR >=60 mL/min/1.73m 62 69 68 RADIOLOGY: CT's 07/27/22: Pending ASSESSMENT/PLAN: 1. Malignant neoplasm of lower-inner quadrant of right breast of female, estrogen receptor positive(HCC) - ICD9: 174.3, V86.0, ICD10: C50.311, Z17.0 (primary diagnosis) Metastatic recurrence of ER positive, WV negative, HER2 positive breast cancer. 2. Bone metastases (HCC) - ICD9: 198.5, ICD10: C79.51 3. Malignant neoplasm metastatic to both lungs (HCC) - ICD9: 197.0, ICD10: C78.01, C78.02 4. Chemotherapy-induced neuropathy (HCC) - ICD9: 357.6, E933.1, ICD10: G62.0, T45.1X5A - Overall tolerating enhertu well. No new cough/sob/symptoms of pneumonitis or cardiomyopathy. - Reviewed CBC/CMP with pt. - CT's pending. - Continue current medications. - ECHO every 3 cycles. - Follow up with cardiology. - Continue zometa every 3 months. - Proceed as scheduled today for enhertu. - Follow up as scheduled-pending CT's. - Pt. aware to call office with any questions/concerns. The patient indicates understanding of these issues and agrees with the plan. All documentation from previous visit of 07/06/22-Dr. Rivers was copied and pasted, documentation hasbeen reviewed and edited as necessary for today's visit. Caity Cote APRN.TERRITORY DEVELOPMENT MANAGER documented in this encounterWestern [facility]02-23-2023 History of Present illness Narrative* Rosemary Romero RN - 07/29/2022 8:48 AM EST . documented in this encounterWestern [facility] Hospital02-21-2023 History of Present illness Narrative* Adriana Thomas RT(R) - 07/27/2022 9:20 AM EST Radiology Service Progress Note PATIENT NAME: Renate Christiansen DATE OF SERVICE: July 27, 2022 TIME: 3:22 PM PATIENT IDENTITY VERIFICATION COMPLETED USING TWO (2) IDENTIFIERS: Name and Date of confirmedby patient verbally. FALL SCREENING: Has the patient had 2 falls in the last year or 1 fall with injury or currently using an Ambulatory Assistive Device (Walker, Cane, Wheelchair, Crutches, etc.)? No PATIENT GENDER DATA: Female. status: : No status: NO. PATIENT RELEVANT IMPLANT DATA REVIEWED: Yes RADIOLOGY DEPARTMENT: CT; Exam(s) Completed: Chest Abdomen Pelvis PERIPHERAL IV DATA: power port accessed by [id number] SIGNED BY: RT Ashley(R) July 27, 2022 3:22 PM documented in this encounterWestern Reserve Hospital01-31-2023 History of Present illness Narrative* Rip Rivers, - 07/06/2022 8:47 AM EST Diagnosis: 1) Metastatic recurrence of ER positive, WV negative, HER2 positive breast cancer. 2) Cardiomyopathy. HPI: The patient is a 66 year old female who discovered a lump on the lower inner portion of her right breast in the fall of 2015. She was seen at [facility] and underwent a right sided core biopsy on 02/16/2016 by interventional radiology. The tissue specimen demonstrated invasive ductal carcinoma, Sorento grade 2. ERpositive (90%, very weak) and WV negative (0%). HER-2 was quantified at 3+. She underwent a right sided lumpectomy and right axillary sentinel lymph node dissection on 02/26/2016. Final pathology demonstrated that within the lumpectomy specimen there was a 2.5 cm single focus ofinvasive carcinoma. DCIS was present comprising about 10% [...] 3) Nerlyx-stopped d/t diarrhea. Last dose of neratinib . I'm never taking that again. Seen here in early March for complaint of right breast fullness and tenderness. Diagnostic mammogram done on 03/07/2019 did not demonstrate a mass within the breast however on ultrasound there was a0.8 cm x 0.6 cm x 0.9 cm lobulated mass with an indistinct margin in the right breast at 1:00 anterior depth 6 cm in the nipple. It was lobulated and hypoechoic with internal echoes. This corresponded to the tender area. There was also a 1.2 x 0.9 x 2 cm lobulated mass with a circumscribed margin in the right breast at 2:00 anterior depth 7 cm from the nipple. It also was hypoechoic with internalechoes. And it also was tender on exam. Patient next underwent ultrasound-guided right breast needle core biopsy 2 on 03/22/2019. Pathology: MICROSCOPIC DIAGNOSIS A. Right breast at 1 o clock, core biopsy: Invasive ductal carcinoma with the following characteristics: Maximal length - 10 mm Nuclear grade - 3/3 Other findings - ductal carcinoma in situ, nuclear 3/3 with focal comedo necrosis. B. Right breast at 2 o clock, core biopsy: Invasive ductal carcinoma with the following characteristics: Maximal length - 1.2 mm Nuclear grade - 2-3/3 ANTIBODY / CLONE RESULT Block A P53 (DO-7) positive, >90% Ki-67 (30-9) positive, 12% CK8 (38ariaN86) positive CK5-6 (D5 & 1684) negative Calponin-1 (KT396G) negative P40 (BC28) negative E-Cad (ECH-6) positive MORPHOMETRIC ANALYSIS ER (clone 6F11) 15%, weak intensity WV (clone 16/1E2) 0% Her-2Neu (clone CB11) 3+ Block B Calponin-1 (TH136M) negative P40 (BC28) negative CK8 (64pdbeW87) positive INTERPRETATION: A. Right breast 1 o clock, biopsy: Invasive ductal carcinoma, grade 3/3. Positive for estrogen receptors (favorable prognostic indicator). Negative for progesterone receptors (unfavorable prognostic indicator). Positive for overexpression of ZTV9coh. B. Right breast 2 o clock, biopsy: Invasive ductal carcinoma, grade 2-3/3. Then underwent right breast modified mastectomy along with axillary lymph node dissection on 04/02/2019. Pathology: MICROSCOPIC DIAGNOSIS Right breast, modified radical mastectomy: Invasive ductal carcinoma x2. Ductal carcinoma in situ. Five out of five lymph nodes, negative for metastatic carcinoma. Hyalinized fibroadenomas x2. See cancer summary below. SJ:breann 04/05/19 INVASIVE BREAST CANCER SUMMARY: Specimen - total breast (including nipple and skin). Procedure - total mastectomy (including nipple and skin). Lymph node sampling - axillary dissection Specimen integrity - single, intact specimen Specimen laterality - right Tumor site - inner quadrant Tumor size: size of largest invasive carcinoma - 3.5 x 1.5 x 1.5 cm Tumor focality - two foci of invasive carcinoma Size of individual foci - 3.5 x 1.5 x 1.5 cm and 2 x 2 x 1 cm Macroscopic and Microscopic extent of tumor: Skin - invasive carcinoma does not invade into the dermis or epidermis. Nipple - DCIS does not involve nipple epidermis. Skeletal muscle - Skeletal muscle is present and is free of carcinoma. Ductal carcinoma in situ (DCIS) - present Extensive intraductal component (EIC) - negative Estimated size (extent) of DCIS - DCIS is present in the area of invasive carcinoma and comprise about 5% of the total tumor volume. Number of blocks with DCIS - 7 Number of blocks examined (breast tissue) - 16 Architectural patterns - cribriform and comedo Nuclear grade - grade 3 (high) Necrosis - present, central (expansive comedo necrosis) Lobular carcinoma in situ (LCIS) - not identified Histologic type of invasive carcinoma - invasive ductal carcinoma (no special type) Histologic Grade (Yohan grade): Glandular/tubular differentiation - score 3 Nuclear pleomorphism - score 3 Mitotic count - score 2 Overall grade - 3 (score of 8) Both tumor show similar morphologic features. Margins - larger focus of invasive carcinoma is present at the closest posterior margin of the specimen. - smaller focus of invasive carcinoma is 1.7 cm away from closest superior margin. - Margins are free of ductal carcinoma in situ. Treatment effect: Response to presurgical (neoadjuvant) therapy - no known presurgical therapy. Lymph-Vascular invasion - not identified Dermal lymph-vascular invasion - not identified Lymph nodes: Number of sentinel lymph nodes examined - 0 Total number of lymph nodes examined (sentinel and nonsentinel) - 5 Number of lymph nodes with macrometastases, micrometastases and isolated tumor cells - 0 Distant metastasis - not applicable Additional pathologic findings - hyalinized fibroadenomas x2 with focal calcifications. See comment. - Dense fibrosis and lobular involution. Ancillary studies - previously performed on section of tumor ([id number] / [id number]). ER - positive (15%, weak intensity) WV - negative (0%) Her2 krista - positive (3+) Microcalcifications - present in both invasive carcinoma and non-neoplastic tissue. Clinical history - Please make reference to previous specimen ([id number]) right breast at 1 o clock and right breast at 2 o clock core biopsies with diagnosis of invasive ductal carcinoma. PATHOLOGIC STAGE: pT2(m) pN0 Mx Evidently the larger focus of cancer was down to the chest wall muscle. Other significant past medical history was asymptomatic decline in ejection fraction 1 receiving Herceptin. Serial echocardiograms--March 2016 at that time he demonstrated ejection fraction of 72%.Another echocardiogram in September 2016 demonstrated ejection fraction of 55%. In November 2016 was 50% and in May 2017 was 45% with mild global hypokinesis. managed with beta-ruth and ARB. Most recent echocardiogram from May 2018 revealed normal left ventricular size with systolic function at lower limits of normal estimated at 53%. The global longitudinal strain was -19.4% (normal) cis. Stage I diastolic dysfunction was observed. Pulmonary artery pressure was 27 mmHg. Had staging CTs scans that suggested lung metastases. Not able to biopsy. Previous therapy: 1) Taxotere/Herceptin/Perjeta. 2) Herceptin/Perjeta. Discontinued 01/2021 for progressive disease. 3) Kadcyla. 02/2021 through 07/2021. Discontinued secondary to significant worsening of neuropathy. Current therapy: 1) Enhertu. Interim history: I feel fine. Her only side effect from treatment remains constipation the first few days after her dose which isrelieved with prune juice. Verified again today (07/06/2022)--She denies cough, wheezing, shortness of breath at rest, chest pain and pressure. No change in chronic dyspnea with heavy exertion. She is doing her ADLs and IADLs and chores around the house. Subcutaneous metastasis on the anterior lower chest wall no longer palpable to her. 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 Symptoms are well controlled. No progression. PMH, medications and allergies personally reviewed by me today. Any changes documented in appropriate section. ROS: Constitutional: Denies episodes of fever and night sweats. Not significantly fatigued. Normal appetite. Neuro: Denies [place], vertigo, dizziness and imbalance. HEENT: No recent change in voice, vision or hearing. Resp: See above. CVS: See above. GI: Denies dysgeusia. Denies symptoms of stomatitis. Denies dysphagia and odynophagia. Denies abdominal pain. : Denies dysuria or gross hematuria. No symptoms of bladder outlet obstruction. Endo: Denies hot flashes. Denies polyuria and polydipsia. Denies heat and cold intolerance. Musculoskeletal: Denies bone, back, joint and muscular pain. Derm: Denies rash. Denies jaundice and diffuse pruritis. Heme: Denies unusual bleeding and unexplained bruising. Psych: Normal mood. PHYSICAL EXAM: Vitals: Blood pressure 112/66, pulse 60, temperature 36.9 C (98.4 F), temperature source Temporal, weight 86.9 kg (191 lb 8 oz). Well-appearing and in no acute distress. EYES: Sclerae are anicteric bilaterally. LYMPHATIC: There is no palpable cervical, supraclavicular, axillary adenopathy. RESPIRATORY: Inspiratory breath sounds are of normal intensity in all barnes. No rales, wheezes or rhonchi. CARDIOVASCULAR: Rhythm is regular. 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 ABDOMEN: The abdomen is nondistended. Extremities: No swelling or edema. SKIN: Resolution of subcutaneous metastasis near Xyvoid. NEUROLOGIC: smelter liner II-XII are grossly intact. Absent patellar DTRs. LABS: Component Latest Ref Rng & Units 07/06/2022 WBC 3.70 - 11.00 k/uL 4.39 RBC 3.90 - 5.20 m/uL 3.47 (L) Hemoglobin 11.5 - 15.5 g/dL 12.3 Hematocrit 36.0 - 46.0 % 36.3 MCV 80.0 - 100.0 fL 104.6 (H) MCH 26.0 - 34.0 pg 35.4 (H) MCHC 30.5 - 36.0 g/dL 33.9 RDW-CV 11.5 - 15.0 % 15.7 (H) Platelet Count 150 - 400 k/uL 204 MPV 9.0 - 12.7 fL 9.4 Neut% % 48.0 Abs Neut (ANC) 1.45 - 7.50 k/uL 2.11 Lymph% % 35.3 Abs Lymph 1.00 - 4.00 k/uL 1.55 Cotton% % 10.3 Abs Cotton <0.87 k/uL 0.45 Eosin% % 5.5 Abs Eosin <0.46 k/uL 0.24 Baso% % 0.7 Abs Baso <0.11 k/uL 0.03 Immature Gran % % 0.2 IMMATURE GRANS (ABS) <0.10 k/uL <0.03 NRBC /100 WBC 0.0 Absolute nRBC <0.01 k/uL <0.01 DTYPE Auto Component Latest Ref Rng & Units 05/25/2022 06/15/2022 07/06/2022 Protein, Total 6.3 - 8.0 g/dL 5.7 (L) 6.0 (L) 5.9 (L) Albumin 3.9 - 4.9 g/dL 3.8 (L) 3.8 (L) 3.7 (L) Calcium 8.5 - 10.2 mg/dL 9.5 10.0 9.3 Bilirubin, Total 0.2 - 1.3 mg/dL 0.3 0.3 0.4 Alkaline Phosphatase 34 - 123 U/L 166 (H) 192 (H) 185 (H) AST 13 - 35 U/L 33 33 38 (H) ALT 7 - 38 U/L 21 20 24 Glucose 74 - 99 mg/dL 116 (H) 118 (H) 142 (H) BUN 7 - 21 mg/dL 16 15 11 Creatinine 0.58 - 0.96 mg/dL 0.93 0.99 (H) 0.91 Sodium 136 - 144 mmol/L 142 141 143 Potassium 3.7 - 5.1 mmol/L 3.6 (L) 4.1 3.9 Chloride 97 - 105 mmol/L 107 (H) 106 (H) 104 CO2 22 - 30 mmol/L 29 27 29 Anion Gap 9 - 18 mmol/L 6 (L) 8 (L) 10 eGFR >=60 mL/min/1.73m 67 62 69 ASSESSMENT/PLAN: (C50.311, Z17.0) Malignant neoplasm of lower-inner quadrant of right breast of female, estrogen receptor positive (HCC) (primary encounter diagnosis) (C79.51) Bone metastases (HCC) (C78.01, C78.02) Malignant neoplasm metastatic to both lungs (HCC) (I42.7, T45.1X5A) Chemotherapy-induced cardiomyopathy (HCC) Assessment: -Originally pT2 pN0(sln) MX ER positive (9%, very weak) WV negative HER overexpressed stage IIA invasive ductal carcinoma the right breast. -Recurrent pT2(m) pN0 (none of 5 LNs) MX ER +(15%, weak intensity)/WV negative (0%) HER2 3+ invasive ductal carcinoma the right breast while on AI (anastrozole). Posterior margin positive--more thanjust focal according to pathologist. Pectoralis fascia rem she calixto. Staging workup revealed multiple lung metastases, not biopsy proven. -Kadcyla recently discontinued secondary to sudden worsening of neuropathy. -PET showed PD from lung metastases as well as one cutaneous metastasis. No bone metastases. -Tolerating Enhertu overall very well with exception of constipation that is manageable with prune juice. No symptoms of pneumonitis. -She has no symptoms of cardiomyopathy. Blood pressure remains well controlled. Reviewed most recent echocardiogram results done at [facility]--scanned. No change from previous. EF normal. Plan: -Continue metoprolol to 25 mg BID. -Continue Cozaar 100 mg daily. -Continue Lyrica 150 mg at HS. -Zometa to every 3 months (originally started for hypercalcemia). -US thyroid next February. -Continue Enhertu. -CT a few days prior to next cycle. -Echocardiogram every 3 cycles. -Continue follow-up with Dr. Galeano. -Previously stopped IBU for increase in serum Cr. (Z12.31) Encounter for screening mammogram for malignant neoplasm of breast (primary Assessment: -Overdue for left-sided screening mammogram. Plan: -Screening mammogram left breast. (G62.0, T45.1X5A) Chemotherapy-induced neuropathy (HCC) Assessment: -Kadcyla recently discontinued secondary to sudden worsening of neuropathy. -No subjective change. Symptoms well controlled with Lyrica. Plan: -Continue Lyrica 150 mg twice daily. Portions of this documentation were copied and pasted from previous office visit notes in order to provide a cohesive continuity of the history. The note has been reviewed and edited and updated as necessary. During this patient visit I have spent approximately 10 minutes out of 20 in counseling regarding treatment options, medications and test results and coordinating care. Rip Rivers DO documented in this encounterWestern [facility] History of Present illness Narrative* Nicolle Funez RN - 07/06/2022 7:24 AM EST Patient is here for IVAD port flush/blood draw per [facility] [place] protocol. IVAD is located in left upper chest. Site cleansed with Chloraprep IVAD accessed with a #20 gauge 3/4 non-coring Gripper needle Flush with 5cc's Normal Saline. Blood Return: Good. 10 cc's blood aspirated and discarded. Blood drawn for CBC and CMP. Flushed with: 20 ml Normal Saline and 5 ml Heparin Lock Flush. Non-coring needle removed. Paper tape applied to puncture site. Site negative for redness, edema or tenderness. Patient tolerated procedure well. documented in this encounterWestern [facility] Hospital01-10-2023 History of Present illness Narrative* Caity Cote APRN.TERRITORY DEVELOPMENT MANAGER - 06/15/2022 8:22 AM EST Chief Complaint Patient presents with: Established Patient HPI: Renate Christiansen is a 66 year old female who presents here today for evaluation for treatment on . Per Dr. Rivers's previous note: H/o pt. discovered a lump on the lower inner portion of her right breast in the fall of 2015. She was seen at [facility] and underwent a right sided core biopsy on 02/16/2016 by interventional radiology. The tissue specimen demonstrated invasive ductal carcinoma, Sorento grade 2. ERpositive (90%, very weak) and WV negative (0%). HER-2 was quantified at 3+. She underwent a right sided lumpectomy and right axillary sentinel lymph node dissection on 02/26/2016. Final pathology demonstrated that within the lumpectomy specimen there was a 2.5 cm single focus ofinvasive carcinoma. DCIS was present comprising about 10% [...] 3) Nerlyx-stopped d/t diarrhea. Last dose of neratinib . I'm never taking that again. Seen here in early March for complaint of right breast fullness and tenderness. Diagnostic mammogram done on 03/07/2019 did not demonstrate a mass within the breast however on ultrasound there was a0.8 cm x 0.6 cm x 0.9 cm lobulated mass with an indistinct margin in the right breast at 1:00 anterior depth 6 cm in the nipple. It was lobulated and hypoechoic with internal echoes. This corresponded to the tender area. There was also a 1.2 x 0.9 x 2 cm lobulated mass with a circumscribed margin in the right breast at 2:00 anterior depth 7 cm from the nipple. It also was hypoechoic with internalechoes. And it also was tender on exam. Patient next underwent ultrasound-guided right breast needle core biopsy 2 on 03/22/2019. Pathology: MICROSCOPIC DIAGNOSIS A. Right breast at 1 o clock, core biopsy: Invasive ductal carcinoma with the following characteristics: Maximal length - 10 mm Nuclear grade - 3/3 Other findings - ductal carcinoma in situ, nuclear 3/3 with focal comedo necrosis. B. Right breast at 2 o clock, core biopsy: Invasive ductal carcinoma with the following characteristics: Maximal length - 1.2 mm Nuclear grade - 2-3/3 ANTIBODY / CLONE RESULT Block A P53 (DO-7) positive, >90% Ki-67 (30-9) positive, 12% CK8 (80kjhpQ17) positive CK5-6 (D5 & 1684) negative Calponin-1 (KI842M) negative P40 (BC28) negative E-Cad (ECH-6) positive MORPHOMETRIC ANALYSIS ER (clone 6F11) 15%, weak intensity WV (clone 16/1E2) 0% Her-2Neu (clone CB11) 3+ Block B Calponin-1 (BO123G) negative P40 (BC28) negative CK8 (63pizgX01) positive INTERPRETATION: A. Right breast 1 o clock, biopsy: Invasive ductal carcinoma, grade 3/3. Positive for estrogen receptors (favorable prognostic indicator). Negative for progesterone receptors (unfavorable prognostic indicator). Positive for overexpression of SXX1wee. B. Right breast 2 o clock, biopsy: Invasive ductal carcinoma, grade 2-3/3. Then underwent right breast modified mastectomy along with axillary lymph node dissection on 04/02/2019. Pathology: MICROSCOPIC DIAGNOSIS Right breast, modified radical mastectomy: Invasive ductal carcinoma x2. Ductal carcinoma in situ. Five out of five lymph nodes, negative for metastatic carcinoma. Hyalinized fibroadenomas x2. See cancer summary below. SJ:breann 04/05/19 INVASIVE BREAST CANCER SUMMARY: Specimen - total breast (including nipple and skin). Procedure - total mastectomy (including nipple and skin). Lymph node sampling - axillary dissection Specimen integrity - single, intact specimen Specimen laterality - right Tumor site - inner quadrant Tumor size: size of largest invasive carcinoma - 3.5 x 1.5 x 1.5 cm Tumor focality - two foci of invasive carcinoma Size of individual foci - 3.5 x 1.5 x 1.5 cm and 2 x 2 x 1 cm Macroscopic and Microscopic extent of tumor: Skin - invasive carcinoma does not invade into the dermis or epidermis. Nipple - DCIS does not involve nipple epidermis. Skeletal muscle - Skeletal muscle is present and is free of carcinoma. Ductal carcinoma in situ (DCIS) - present Extensive intraductal component (EIC) - negative Estimated size (extent) of DCIS - DCIS is present in the area of invasive carcinoma and comprise about 5% of the total tumor volume. Number of blocks with DCIS - 7 Number of blocks examined (breast tissue) - 16 Architectural patterns - cribriform and comedo Nuclear grade - grade 3 (high) Necrosis - present, central (expansive comedo necrosis) Lobular carcinoma in situ (LCIS) - not identified Histologic type of invasive carcinoma - invasive ductal carcinoma (no special type) Histologic Grade (Yohan grade): Glandular/tubular differentiation - score 3 Nuclear pleomorphism - score 3 Mitotic count - score 2 Overall grade - 3 (score of 8) Both tumor show similar morphologic features. Margins - larger focus of invasive carcinoma is present at the closest posterior margin of the specimen. - smaller focus of invasive carcinoma is 1.7 cm away from closest superior margin. - Margins are free of ductal carcinoma in situ. Treatment effect: Response to presurgical (neoadjuvant) therapy - no known presurgical therapy. Lymph-Vascular invasion - not identified Dermal lymph-vascular invasion - not identified Lymph nodes: Number of sentinel lymph nodes examined - 0 Total number of lymph nodes examined (sentinel and nonsentinel) - 5 Number of lymph nodes with macrometastases, micrometastases and isolated tumor cells - 0 Distant metastasis - not applicable Additional pathologic findings - hyalinized fibroadenomas x2 with focal calcifications. See comment. - Dense fibrosis and lobular involution. Ancillary studies - previously performed on section of tumor ([id number] / [id number]). ER - positive (15%, weak intensity) WV - negative (0%) Her2 krista - positive (3+) Microcalcifications - present in both invasive carcinoma and non-neoplastic tissue. Clinical history - Please make reference to previous specimen ([id number]) right breast at 1 o clock and right breast at 2 o clock core biopsies with diagnosis of invasive ductal carcinoma. PATHOLOGIC STAGE: pT2(m) pN0 Mx Evidently the larger focus of cancer was down to the chest wall muscle. Other significant past medical history was asymptomatic decline in ejection fraction 1 receiving Herceptin. Serial echocardiograms--March 2016 at that time he demonstrated ejection fraction of 72%.Another echocardiogram in September 2016 demonstrated ejection fraction of 55%. In November 2016 was 50% and in May 2017 was 45% with mild global hypokinesis. managed with beta-ruth and ARB. Most recent echocardiogram from May 2018 revealed normal left ventricular size with systolic function at lower limits of normal estimated at 53%. The global longitudinal strain was -19.4% (normal) cis. Stage I diastolic dysfunction was observed. Pulmonary artery pressure was 27 mmHg. Had staging CTs scans that suggested lung metastases. Not able to biopsy. Previous therapy: 1) Taxotere/Herceptin/Perjeta. 2) Herceptin/Perjeta. Discontinued 01/2021 for progressive disease. 3) Kadcyla. 02/2021 through 07/2021. Discontinued secondary to significant worsening of neuropathy. Current therapy: 1) Enhertu. No new concerns today. Pt. here today with her spouse. Appetite:Good. Energy level:Pretty good. Denies fevers or recent illness. Resp:denies cough or sob-no new brito or new sob Cardiac:denies chest pain/palpitations GI:denies abd pain, n/v-will take phenergan 1-2 weeks after treatment-takes for about 2-3 days withrelief, moving bowels regularly-takes prune juice :denies dysuria/hematuria Extrem:denies pain Endo:denies hot flashes Neuro:+neuropathy stable Skin:denies rashes Heme:denies bleeding The ROS is otherwise negative. Past medical history, appointments, medications, allergies reviewed. No changes. EXAM: BP 124/68 Pulse 64 Temp 36.6 C (97.8 F) (Temporal) Wt 84.6 kg (186 lb 8 oz) BMI 35.24 kg/m APPEARANCE Well appearing, alert, in no acute distress, well-hydrated, well nourished. HEART RRR with normal S1 and S2, no murmurs LUNG clear to auscultation LYMPH NODES No cervical lymphadenopathy, No supraclavicular lymphadenopathy, and No axillary lymphadenopathy. ABDOMEN bowel sounds normoactive, soft, non-tender EXTREMITIES No edema NEURO Awake, alert and oriented x 3, Normal gait, and No involuntary motions. SKIN Skin color, texture, turgor normal, no suspicious rashes or lesions LABS: Pending ASSESSMENT/PLAN: 1. Malignant neoplasm of lower-inner quadrant of right breast of female, estrogen receptor positive(HCC) - ICD9: 174.3, V86.0, ICD10: C50.311, Z17.0 (primary diagnosis) Metastatic recurrence of ER positive, WV negative, HER2 positive breast cancer. 2. Bone metastases (HCC) - ICD9: 198.5, ICD10: C79.51 3. Skin, 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) - ICD9: 198.2, ICD10: C79.2 4. Malignant neoplasm metastatic to both lungs (HCC) - ICD9: 197.0, ICD10: C78.01, C78.02 - Overall tolerating Enhertu well. Pt. denies any new resp. symptoms. - Labs pending. - ECHO every 3 cycles. - Continue current medications. - Continue Zometa every 3 months. - Continue follow up with cardiology. - CT's after two more cycles. - ECHO due after this cycle-end of Jun. Pt. has this done at [facility]. - Follow up with Dr. Rivers as scheduled. - Pt. aware to call office with any questions/concerns. The patient indicates understanding of these issues and agrees with the plan. All documentation from previous visit of 05/25/22-Dr. Rivers was copied and pasted, documentation has been reviewed and edited as necessary for today's visit. Caity Cote APRN.TERRITORY DEVELOPMENT MANAGER documented in this encounterWestern [facility] Hospital12-28-2022 Miscellaneous Notes* Telephone Encounter - Jazlyn Harding LPN - 06/02/2022 4:23 PM EST Letter was dictated under Dr. Rivers's name ( he is out of office until 06/08/2022). Patient's current handicap placard does not until 08/11/2022. Will send [employer] message with above information. Jazlyn Harding LPN * Telephone Encounter - Conrado Rios MD - 06/02/2022 4:15 PM EST Letter dictated. Conrado Rios MD * Telephone Encounter - Bruna Mcmanus LPN - 06/02/2022 3:27 PM EST Are you willing to write for pt in Dr Rivers's absence? Bruna Mcmanus LPN * Telephone Encounter - Alexia Stephens - 06/02/2022 2:59 PM EST Patient called in requesting a prescription for a new handicap placard. Please assist. Alexia Stephens documented in this encounterWestern [facility] Hospital12-22-2022 History of Present illness Narrative* Lexie Hartley RN - 05/27/2022 11:00 AM EST No changes to assessment from 05/25/22. Lexie Hartley RN documented in this encounterWestern [facility] Hospital12-20-2022 Miscellaneous Notes* Telephone Encounter - Delaney Cast - 05/25/2022 2:30 PM EST Patient returned call and given message below * Telephone Encounter - Jazlyn Harding LPN - 05/25/2022 1:13 PM EST Message left for patient to contact office. [employer] message also sent. Jazlyn Harding LPN * Telephone Encounter - Rip Rivers DO - 05/25/2022 10:36 AM EST Her potassium is running a little low. Keeping optimal potassium levels is important for her heart.Please advise her to start prescription potassium supplement. Rip Rivers DO documented in this encounterWestern [facility] Hospital12-20-2022 History of Present illness Narrative* Rip Rivers DO - 05/25/2022 8:13 AM EST Diagnosis: 1) Metastatic recurrence of ER positive, WV negative, HER2 positive breast cancer. 2) Cardiomyopathy. HPI: The patient is a 66 year old female who discovered a lump on the lower inner portion of her right breast in the fall of 2015. She was seen at [facility] and underwent a right sided core biopsy on 02/16/2016 by interventional radiology. The tissue specimen demonstrated invasive ductal carcinoma, Sorento grade 2. ERpositive (90%, very weak) and WV negative (0%). HER-2 was quantified at 3+. She underwent a right sided lumpectomy and right axillary sentinel lymph node dissection on 02/26/2016. Final pathology demonstrated that within the lumpectomy specimen there was a 2.5 cm single focus ofinvasive carcinoma. DCIS was present comprising about 10% [...] 3) Nerlyx-stopped d/t diarrhea. Last dose of neratinib . I'm never taking that again. Seen here in early March for complaint of right breast fullness and tenderness. Diagnostic mammogram done on 03/07/2019 did not demonstrate a mass within the breast however on ultrasound there was a0.8 cm x 0.6 cm x 0.9 cm lobulated mass with an indistinct margin in the right breast at 1:00 anterior depth 6 cm in the nipple. It was lobulated and hypoechoic with internal echoes. This corresponded to the tender area. There was also a 1.2 x 0.9 x 2 cm lobulated mass with a circumscribed margin in the right breast at 2:00 anterior depth 7 cm from the nipple. It also was hypoechoic with internalechoes. And it also was tender on exam. Patient next underwent ultrasound-guided right breast needle core biopsy 2 on 03/22/2019. Pathology: MICROSCOPIC DIAGNOSIS A. Right breast at 1 o clock, core biopsy: Invasive ductal carcinoma with the following characteristics: Maximal length - 10 mm Nuclear grade - 3/3 Other findings - ductal carcinoma in situ, nuclear 3/3 with focal comedo necrosis. B. Right breast at 2 o clock, core biopsy: Invasive ductal carcinoma with the following characteristics: Maximal length - 1.2 mm Nuclear grade - 2-3/3 ANTIBODY / CLONE RESULT Block A P53 (DO-7) positive, >90% Ki-67 (30-9) positive, 12% CK8 (90lenoL23) positive CK5-6 (D5 & 1684) negative Calponin-1 (JJ484I) negative P40 (BC28) negative E-Cad (ECH-6) positive MORPHOMETRIC ANALYSIS ER (clone 6F11) 15%, weak intensity WV (clone 16/1E2) 0% Her-2Neu (clone CB11) 3+ Block B Calponin-1 (MS383U) negative P40 (BC28) negative CK8 (45dgamD34) positive INTERPRETATION: A. Right breast 1 o clock, biopsy: Invasive ductal carcinoma, grade 3/3. Positive for estrogen receptors (favorable prognostic indicator). Negative for progesterone receptors (unfavorable prognostic indicator). Positive for overexpression of [id number]. B. Right breast 2 o clock, biopsy: Invasive ductal carcinoma, grade 2-3/3. Then underwent right breast modified mastectomy along with axillary lymph node dissection on 04/02/2019. Pathology: MICROSCOPIC DIAGNOSIS Right breast, modified radical mastectomy: Invasive ductal carcinoma x2. Ductal carcinoma in situ. Five out of five lymph nodes, negative for metastatic carcinoma. Hyalinized fibroadenomas x2. See cancer summary below. SJ:breann 04/05/19 INVASIVE BREAST CANCER SUMMARY: Specimen - total breast (including nipple and skin). Procedure - total mastectomy (including nipple and skin). Lymph node sampling - axillary dissection Specimen integrity - single, intact specimen Specimen laterality - right Tumor site - inner quadrant Tumor size: size of largest invasive carcinoma - 3.5 x 1.5 x 1.5 cm Tumor focality - two foci of invasive carcinoma Size of individual foci - 3.5 x 1.5 x 1.5 cm and 2 x 2 x 1 cm Macroscopic and Microscopic extent of tumor: Skin - invasive carcinoma does not invade into the dermis or epidermis. Nipple - DCIS does not involve nipple epidermis. Skeletal muscle - Skeletal muscle is present and is free of carcinoma. Ductal carcinoma in situ (DCIS) - present Extensive intraductal component (EIC) - negative Estimated size (extent) of DCIS - DCIS is present in the area of invasive carcinoma and comprise about 5% of the total tumor volume. Number of blocks with DCIS - 7 Number of blocks examined (breast tissue) - 16 Architectural patterns - cribriform and comedo Nuclear grade - grade 3 (high) Necrosis - present, central (expansive comedo necrosis) Lobular carcinoma in situ (LCIS) - not identified Histologic type of invasive carcinoma - invasive ductal carcinoma (no special type) Histologic Grade (Yohan grade): Glandular/tubular differentiation - score 3 Nuclear pleomorphism - score 3 Mitotic count - score 2 Overall grade - 3 (score of 8) Both tumor show similar morphologic features. Margins - larger focus of invasive carcinoma is present at the closest posterior margin of the specimen. - smaller focus of invasive carcinoma is 1.7 cm away from closest superior margin. - Margins are free of ductal carcinoma in situ. Treatment effect: Response to presurgical (neoadjuvant) therapy - no known presurgical therapy. Lymph-Vascular invasion - not identified Dermal lymph-vascular invasion - not identified Lymph nodes: Number of sentinel lymph nodes examined - 0 Total number of lymph nodes examined (sentinel and nonsentinel) - 5 Number of lymph nodes with macrometastases, micrometastases and isolated tumor cells - 0 Distant metastasis - not applicable Additional pathologic findings - hyalinized fibroadenomas x2 with focal calcifications. See comment. - Dense fibrosis and lobular involution. Ancillary studies - previously performed on section of tumor ([id number] / [id number]). ER - positive (15%, weak intensity) WV - negative (0%) Her2 krista - positive (3+) Microcalcifications - present in both invasive carcinoma and non-neoplastic tissue. Clinical history - Please make reference to previous specimen ([id number]) right breast at 1 o clock and right breast at 2 o clock core biopsies with diagnosis of invasive ductal carcinoma. PATHOLOGIC STAGE: pT2(m) pN0 Mx Evidently the larger focus of cancer was down to the chest wall muscle. Other significant past medical history was asymptomatic decline in ejection fraction 1 receiving Herceptin. Serial echocardiograms--March 2016 at that time he demonstrated ejection fraction of 72%.Another echocardiogram in September 2016 demonstrated ejection fraction of 55%. In November 2016 was 50% and in May 2017 was 45% with mild global hypokinesis. managed with beta-ruth and ARB. Most recent echocardiogram from May 2018 revealed normal left ventricular size with systolic function at lower limits of normal estimated at 53%. The global longitudinal strain was -19.4% (normal) cis. Stage I diastolic dysfunction was observed. Pulmonary artery pressure was 27 mmHg. Had staging CTs scans that suggested lung metastases. Not able to biopsy. Previous therapy: 1) Taxotere/Herceptin/Perjeta. 2) Herceptin/Perjeta. Discontinued 01/2021 for progressive disease. 3) Kadcyla. 02/2021 through 07/2021. Discontinued secondary to significant worsening of neuropathy. Current therapy: 1) Enhertu. Interim history: Her only side effect from treatment remains constipation the first few days after her dose which isrelieved with prune juice. Verified again today (05/25/2022)--She denies cough, wheezing, shortness of breath at rest, chest pain and pressure. No change in chronic dyspnea with heavy exertion. She is doing her ADLs and IADLs and chores around the house that she enjoys--in fact has done more this holiday season than the . Subcutaneous metastasis on the anterior lower chest wall no longer palpable to her. PMH, medications and allergies personally reviewed by me today. Any changes documented in appropriate section. ROS: Constitutional: Denies episodes of fever and night sweats. Not significantly fatigued. Normal appetite. Neuro: Denies [place], vertigo, dizziness and imbalance. HEENT: No recent change in voice, vision or hearing. Resp: See above. CVS: See above. GI: Denies dysgeusia. Denies symptoms of stomatitis. Denies dysphagia and odynophagia. Denies abdominal pain. : Denies dysuria or gross hematuria. No symptoms of bladder outlet obstruction. Endo: Denies hot flashes. Denies polyuria and polydipsia. Denies heat and cold intolerance. Musculoskeletal: Denies bone, back, joint and muscular pain. Derm: Denies rash. Denies jaundice and diffuse pruritis. Heme: Denies unusual bleeding and unexplained bruising. Psych: Normal mood. PHYSICAL EXAM: Vitals: Blood pressure 126/61, pulse (!) 58, temperature 36.9 C (98.4 F), weight 85.7 kg (189 lb), SpO2 96 %. Well-appearing and in no acute distress. EYES: Sclerae are anicteric bilaterally. LYMPHATIC: There is no palpable cervical, supraclavicular, axillary adenopathy. RESPIRATORY: Inspiratory breath sounds are of normal intensity in all barnes. No rales, wheezes or rhonchi. CARDIOVASCULAR: Rhythm is regular. ABDOMEN: The abdomen is nondistended. Extremities: No swelling or edema. SKIN: Resolution of subcutaneous metastasis near Xyvoid. NEUROLOGIC: smelter liner II-XII are grossly intact. Absent patellar DTRs. LABS: Component Latest Ref Rng & Units 05/25/2022 WBC 3.70 - 11.00 k/uL 4.72 RBC 3.90 - 5.20 m/uL 3.37 (L) Hemoglobin 11.5 - 15.5 g/dL 12.0 Hematocrit 36.0 - 46.0 % 35.2 (L) MCV 80.0 - 100.0 fL 104.5 (H) MCH 26.0 - 34.0 pg 35.6 (H) MCHC 30.5 - 36.0 g/dL 34.1 RDW-CV 11.5 - 15.0 % 14.9 Platelet Count 150 - 400 k/uL 178 MPV 9.0 - 12.7 fL 9.5 Neut% % 54.9 Abs Neut (ANC) 1.45 - 7.50 k/uL 2.59 Lymph% % 28.0 Abs Lymph 1.00 - 4.00 k/uL 1.32 Cotton% % 11.2 Abs Cotton <0.87 k/uL 0.53 Eosin% % 5.1 Abs Eosin <0.46 k/uL 0.24 Baso% % 0.6 Abs Baso <0.11 k/uL 0.03 Immature Gran % % 0.2 IMMATURE GRANS (ABS) <0.10 k/uL <0.03 NRBC /100 WBC 0.0 Absolute nRBC <0.01 k/uL <0.01 DTYPE Auto ASSESSMENT/PLAN: (C50.311, Z17.0) Malignant neoplasm of lower-inner quadrant of right breast of female, estrogen receptor positive (HCC) (primary encounter diagnosis) Assessment: -Originally pT2 pN0(sln) MX ER positive (9%, very weak) WV negative HER overexpressed stage IIA invasive ductal carcinoma the right breast. -Recurrent pT2(m) pN0 (none of 5 LNs) MX ER +(15%, weak intensity)/WV negative (0%) HER2 3+ invasive ductal carcinoma the right breast while on AI (anastrozole). Posterior margin positive--more thanjust focal according to pathologist. Pectoralis fascia rem she calixto. Staging workup revealed multiple lung metastases, not biopsy proven. -Kadcyla recently discontinued secondary to sudden worsening of neuropathy. -Neuropathy is responding nicely after rotating from gabapentin to Lyrica. -PET showed PD from lung metastases as well as one cutaneous metastasis. No bone metastases. -Tolerating Enhertu overall very well with exception of constipation that is manageable with prune juice. No symptoms of pneumonitis. -CTs. SD from previous response. Plan: -Continue metoprolol to 25 mg BID. -Continue Cozaar 100 mg daily. -Continue Lyrica 150 mg at HS. -Zometa to every 3 months (originally started for hypercalcemia). -US thyroid next February. -Continue Enhertu. -CT after 3-4 more cycles. -Echocardiogram every 3 cycles. -Continue follow-up with Dr. Galeano. -Previously stopped IBU for increase in serum Cr. Portions of this documentation were copied and pasted from previous office visit notes in order to provide a cohesive continuity of the history. The note has been reviewed and edited and updated as necessary. During this patient visit I have spent approximately 10 minutes out of 20 in counseling regarding treatment options, medications and test results and coordinating care. Rip Rivers DO documented in this encounterWestern [facility]12-19-2022 Miscellaneous Notes* Telephone Encounter - Ami Gilmore LPN - 05/24/2022 3:05 PM EST Patient phones requesting refills as follows: Requested Prescriptions Pending Prescriptions Disp Refills LYRICA 150 mg capsule [Pharmacy Med Name: Lyrica Oral Capsule 150 MG 150 MG Capsule] 180 capsule Sig: TAKE 1 CAPSULE BY MOUTH TWICE DAILY Please review and advise. Ami Gilmore LPN * Telephone Encounter - Gypsy Mcgowan LPN - 05/21/2022 4:17 PM EST . documented in this encounterWestern Reserve Hospital11-21-2022 History of Present illness Narrative* Adriana Thomas, RT(R) - 04/26/2022 10:00 AM EST Radiology Service Progress Note PATIENT NAME: Renate Christiansen DATE OF SERVICE: April 26, 2022 TIME: 4:15 PM PATIENT IDENTITY VERIFICATION COMPLETED USING TWO (2) IDENTIFIERS: Name and Date of confirmedby patient verbally. FALL SCREENING: Has the patient had 2 falls in the last year or 1 fall with injury or currently using an Ambulatory Assistive Device (Walker, Cane, Wheelchair, Crutches, etc.)? No PATIENT GENDER DATA: Male PATIENT RELEVANT IMPLANT DATA REVIEWED: Yes RADIOLOGY DEPARTMENT: CT; Exam(s) Completed: Chest Abdomen Pelvis PERIPHERAL IV DATA: power port accessed by [id number] SIGNED BY: RT Ashley(R) April 26, 2022 4:15 PM documented in this encounterWestern Reserve Hospital11-14-2022 Miscellaneous Notes* Telephone Encounter - Jazlyn Harding LPN - 04/19/2022 12:57 PM EST All pages were faxed twice now. Jazlyn Harding LPN * Telephone Encounter - Tiffany Cast - 04/19/2022 12:[address] [facility] called stating page 2 is needed for Echo order. They state they need a doc signature. * Telephone Encounter - Jazlyn Harding LPN - 04/19/2022 12:37 PM EST Order faxed and patient notified. Jazlyn Harding LPN * Telephone Encounter - Kwame Guerrero - 04/19/2022 12:14 PM EST Patient is requesting ECHO order to be faxed to [facility], did not have fax number. Please call patient once faxed. documented in this encounterWestern Reserve Hospital11-11-2022 Miscellaneous Notes* Telephone Encounter - Alexia Stephens - 04/16/2022 4:46 PM EST Echo orders faxed to [facility]. All other appointments scheduled. Alexia Stephens * Telephone Encounter - Emely Lay - 04/14/2022 9:45 AM ESTSummary: AVS 04/14 Check out comments: - ECHO due-done at [facility]. - CT chest/abd/pelvis due. - Continue Zometa every 3 months. - Proceed as scheduled tomorrow for enhertu pending all labs. - Follow up as scheduled. - Pt. aware to call office with any questions/concerns. Pt stated she would stop at desk tomorrow to schedule the above because she forgot her phone/calendar at home documented in this encounterWestern Reserve Hospital11-10-2022 History of Present illness Narrative* Rosemary Romero RN - 04/15/2022 10:25 AM EST Assessment unchanged from 04/14/22 office visit with Jeniffer Cote CNP documented in this encounterWestern Reserve Hospital11-09-2022 History of Present illness Narrative* Caity Cote APRN.ALESSANDRO - 04/14/2022 9:05 AM EST Chief Complaint Patient presents with: Established Patient HPI: Renate Christiansen is a 66 year old female who presents here today for evaluation for treatment tomorrow. Per Dr. Rivers's previous note: H/o pt. discovered a lump on the lower inner portion of her right breast in the fall of 2015. She was seen at [facility] and underwent a right sided core biopsy on 02/16/2016 by interventional radiology. The tissue specimen demonstrated invasive ductal carcinoma, Yohan grade 2. ERpositive (90%, very weak) and WV negative (0%). HER-2 was quantified at 3+. She underwent a right sided lumpectomy and right axillary sentinel lymph node dissection on 02/26/2016. Final pathology demonstrated that within the lumpectomy specimen there was a 2.5 cm single focus ofinvasive carcinoma. DCIS was present comprising about 10% [...] 3) Nerlyx-stopped d/t diarrhea. Last dose of neratinib . I'm never taking that again. Seen here in early March for complaint of right breast fullness and tenderness. Diagnostic mammogram done on 03/07/2019 did not demonstrate a mass within the breast however on ultrasound there was a0.8 cm x 0.6 cm x 0.9 cm lobulated mass with an indistinct margin in the right breast at 1:00 anterior depth 6 cm in the nipple. It was lobulated and hypoechoic with internal echoes. This corresponded to the tender area. There was also a 1.2 x 0.9 x 2 cm lobulated mass with a circumscribed margin in the right breast at 2:00 anterior depth 7 cm from the nipple. It also was hypoechoic with internalechoes. And it also was tender on exam. Patient next underwent ultrasound-guided right breast needle core biopsy 2 on 03/22/2019. Pathology: MICROSCOPIC DIAGNOSIS A. Right breast at 1 o clock, core biopsy: Invasive ductal carcinoma with the following characteristics: Maximal length - 10 mm Nuclear grade - 3/3 Other findings - ductal carcinoma in situ, nuclear 3/3 with focal comedo necrosis. B. Right breast at 2 o clock, core biopsy: Invasive ductal carcinoma with the following characteristics: Maximal length - 1.2 mm Nuclear grade - 2-3/3 ANTIBODY / CLONE RESULT Block A P53 (DO-7) positive, >90% Ki-67 (30-9) positive, 12% CK8 ([id number]) positive CK5-6 (D5 & 1684) negative Calponin-1 (OL173M) negative P40 (BC28) negative E-Cad (ECH-6) positive MORPHOMETRIC ANALYSIS ER (clone 6F11) 15%, weak intensity WV (clone 16/1E2) 0% Her-2Neu (clone CB11) 3+ Block B Calponin-1 ([id number]) negative P40 (BC28) negative CK8 ([id number]) positive INTERPRETATION: A. Right breast 1 o clock, biopsy: Invasive ductal carcinoma, grade 3/3. Positive for estrogen receptors (favorable prognostic indicator). Negative for progesterone receptors (unfavorable prognostic indicator). Positive for overexpression of IBS1bzg. B. Right breast 2 o clock, biopsy: Invasive ductal carcinoma, grade 2-3/3. Then underwent right breast modified mastectomy along with axillary lymph node dissection on 04/02/2019. Pathology: MICROSCOPIC DIAGNOSIS Right breast, modified radical mastectomy: Invasive ductal carcinoma x2. Ductal carcinoma in situ. Five out of five lymph nodes, negative for metastatic carcinoma. Hyalinized fibroadenomas x2. See cancer summary below. SJ:breann 04/05/19 INVASIVE BREAST CANCER SUMMARY: Specimen - total breast (including nipple and skin). Procedure - total mastectomy (including nipple and skin). Lymph node sampling - axillary dissection Specimen integrity - single, intact specimen Specimen laterality - right Tumor site - inner quadrant Tumor size: size of largest invasive carcinoma - 3.5 x 1.5 x 1.5 cm Tumor focality - two foci of invasive carcinoma Size of individual foci - 3.5 x 1.5 x 1.5 cm and 2 x 2 x 1 cm Macroscopic and Microscopic extent of tumor: Skin - invasive carcinoma does not invade into the dermis or epidermis. Nipple - DCIS does not involve nipple epidermis. Skeletal muscle - Skeletal muscle is present and is free of carcinoma. Ductal carcinoma in situ (DCIS) - present Extensive intraductal component (EIC) - negative Estimated size (extent) of DCIS - DCIS is present in the area of invasive carcinoma and comprise about 5% of the total tumor volume. Number of blocks with DCIS - 7 Number of blocks examined (breast tissue) - 16 Architectural patterns - cribriform and comedo Nuclear grade - grade 3 (high) Necrosis - present, central (expansive comedo necrosis) Lobular carcinoma in situ (LCIS) - not identified Histologic type of invasive carcinoma - invasive ductal carcinoma (no special type) Histologic Grade (Sorento grade): Glandular/tubular differentiation - score 3 Nuclear pleomorphism - score 3 Mitotic count - score 2 Overall grade - 3 (score of 8) Both tumor show similar morphologic features. Margins - larger focus of invasive carcinoma is present at the closest posterior margin of the specimen. - smaller focus of invasive carcinoma is 1.7 cm away from closest superior margin. - Margins are free of ductal carcinoma in situ. Treatment effect: Response to presurgical (neoadjuvant) therapy - no known presurgical therapy. Lymph-Vascular invasion - not identified Dermal lymph-vascular invasion - not identified Lymph nodes: Number of sentinel lymph nodes examined - 0 Total number of lymph nodes examined (sentinel and nonsentinel) - 5 Number of lymph nodes with macrometastases, micrometastases and isolated tumor cells - 0 Distant metastasis - not applicable Additional pathologic findings - hyalinized fibroadenomas x2 with focal calcifications. See comment. - Dense fibrosis and lobular involution. Ancillary studies - previously performed on section of tumor ([id number] / [id number]). ER - positive (15%, weak intensity) WV - negative (0%) Her2 krista - positive (3+) Microcalcifications - present in both invasive carcinoma and non-neoplastic tissue. Clinical history - Please make reference to previous specimen ([id number]) right breast at 1 o clock and right breast at 2 o clock core biopsies with diagnosis of invasive ductal carcinoma. PATHOLOGIC STAGE: pT2(m) pN0 Mx Evidently the larger focus of cancer was down to the chest wall muscle. Other significant past medical history was asymptomatic decline in ejection fraction 1 receiving Herceptin. Serial echocardiograms--March 2016 at that time he demonstrated ejection fraction of 72%.Another echocardiogram in September 2016 demonstrated ejection fraction of 55%. In November 2016 was 50% and in May 2017 was 45% with mild global hypokinesis. managed with beta-ruth and ARB. Most recent echocardiogram from May 2018 revealed normal left ventricular size with systolic function at lower limits of normal estimated at 53%. The global longitudinal strain was -19.4% (normal) cis. Stage I diastolic dysfunction was observed. Pulmonary artery pressure was 27 mmHg. Had staging CTs scans that suggested lung metastases. Not able to biopsy. Previous therapy: 1) Taxotere/Herceptin/Perjeta. 2) Herceptin/Perjeta. Discontinued 01/2021 for progressive disease. 3) Kadcyla. 02/2021 through 07/2021. Discontinued secondary to significant worsening of neuropathy. Current therapy: 1) Enhertu. Began 09/10/21 No new concerns today. Pt. here today with her spouse. Pt. has had multiple family/friend losses over the past month. Appetite:I eat all the time. Energy level:I'm doing real good. Denies fevers. Mouth:denies sores Resp:denies cough or sob Cardiac:denies chest pain/palpitations GI:occ. abd pain when constipated, denies n/v, +constipation after treatment- uses prune juice with relief :denies dysuria/hematuria Extrem:chronic b/l knee pain Endo:denies hot flashes Neuro:+neuropathy stable on lyrica Skin:denies rashes/lesions Heme:denies bleeding The ROS is otherwise negative. Past medical history, appointments, medications, allergies reviewed. No changes. EXAM: BP 127/69 Pulse 61 Temp 36.3 C (97.4 F) (Temporal) Wt 85.3 kg (188 lb) BMI 35.52 kg/m APPEARANCE Well appearing, alert, in no acute distress, well-hydrated, well nourished. HEART RRR with normal S1 and S2, no murmurs LUNG clear to auscultation LYMPH NODES No cervical lymphadenopathy, No supraclavicular lymphadenopathy, and No axillary lymphadenopathy. ABDOMEN bowel sounds normoactive, soft, non-tender, non-distended EXTREMITIES No edema NEURO Awake, alert and oriented x 3, Normal gait, and No involuntary motions. SKIN Skin color, texture, turgor normal, no suspicious rashes or lesions LABS: Component Latest Ref Rng & Units 02/24/2022 03/18/2022 04/14/2022 WBC 3.70 - 11.00 k/uL 4.27 4.29 4.63 RBC 3.90 - 5.20 m/uL 3.38 (L) 3.40 (L) 3.47 (L) Hemoglobin 11.5 - 15.5 g/dL 12.1 12.1 12.3 Hematocrit 36.0 - 46.0 % 35.4 (L) 36.3 37.0 MCV 80.0 - 100.0 fL 104.7 (H) 106.8 (H) 106.6 (H) MCH 26.0 - 34.0 pg 35.8 (H) 35.6 (H) 35.4 (H) MCHC 30.5 - 36.0 g/dL 34.2 33.3 33.2 RDW-CV 11.5 - 15.0 % 15.1 (H) 15.2 (H) 14.8 Platelet Count 150 - 400 k/uL 204 195 172 MPV 9.0 - 12.7 fL 9.2 9.5 9.7 Neut% % 45.2 51.7 50.4 Abs Neut (ANC) 1.45 - 7.50 k/uL 1.93 2.22 2.33 Lymph% % 37.2 29.4 31.7 Abs Lymph 1.00 - 4.00 k/uL 1.59 1.26 1.47 Cotton% % 11.0 12.4 11.2 Abs Cotton <0.87 k/uL 0.47 0.53 0.52 Eosin% % 6.1 5.6 5.4 Abs Eosin <0.46 k/uL 0.26 0.24 0.25 Baso% % 0.5 0.7 1.1 Abs Baso <0.11 k/uL <0.03 0.03 0.05 Immature Gran % % 0.0 0.2 0.2 IMMATURE GRANS (ABS) <0.10 k/uL <0.03 <0.03 <0.03 NRBC /100 WBC 0.0 0.0 0.0 Absolute nRBC <0.01 k/uL <0.01 <0.01 <0.01 DTYPE Auto Auto Auto CMP: Pending ASSESSMENT/PLAN: 1. Malignant neoplasm of lower-inner quadrant of right breast of female, estrogen receptor positive(HCC) - ICD9: 174.3, V86.0, ICD10: C50.311, Z17.0 (primary diagnosis) 2. Bone metastases (HCC) - ICD9: 198.5, ICD10: C79.51 3. Chemotherapy-induced neuropathy (HCC) - ICD9: 357.6, E933.1, ICD10: G62.0, T45.1X5A Per Dr. Rivers's previous note 02/03/22: Assessment: -Originally pT2 pN0(sln) MX ER positive (9%, very weak) WV negative HER overexpressed stage IIA invasive ductal carcinoma the right breast. -Recurrent pT2(m) pN0 (none of 5 LNs) MX ER +(15%, weak intensity)/WV negative (0%) HER2 3+ invasive ductal carcinoma the right breast while on AI (anastrozole). Posterior margin positive--more thanjust focal according to pathologist. Pectoralis fascia rem she calixto. Staging workup revealed multiple lung metastases, not biopsy proven. -Kadcyla recently discontinued secondary to sudden worsening of neuropathy. -Neuropathy is responding nicely after rotating from gabapentin to Lyrica. -PET showed PD from lung metastases as well as one cutaneous metastasis. No bone metastases. -Tolerating Enhertu overall very well with exception of constipation that is manageable with prune juice. No symptoms of pneumonitis. -Reviewed CTs 01/07. Very nice continuing response. Plan: -Continue metoprolol to 25 mg BID. -Continue Cozaar 100 mg daily. -Continue Lyrica 150 mg at HS. -Zometa to every 3 months (originally started for hypercalcemia). -US thyroid in a year. -Continue Enhertu. -CT after 3 more cycles. -Echocardiogram every 3 cycles. -Continue follow-up with Dr. Galeano. -Previously stopped IBU for increase in serum Cr. - Overall tolerating Enhertu well except for constipation-relieved by prune juice. - Reviewed CBC with pt. - CMP pending. - Continue current medications. - Continue follow up with cardiology. - ECHO due-done at [facility]. - CT chest/abd/pelvis due. - Continue Zometa every 3 months. - Proceed as scheduled tomorrow for enhertu pending all labs. - Follow up as scheduled. - Pt. aware to call office with any questions/concerns. The patient indicates understanding of these issues and agrees with the plan. All documentation from previous visit of 02/24/22-Dr. Rivers/myself was copied and pasted, documentation has been reviewed and edited as necessary for today's visit. Caity Cote APRN.ALESSANDRO documented in this encounterWestern Reserve Hospital11-09-2022 History of Present illness Narrative* Nicolle Funez RN - 04/14/2022 7:42 AM EST Patient is here for IVAD port flush/blood draw per [facility] [place] protocol. IVAD is located in right upper chest. Site cleansed with Chloraprep IVAD accessed with a #20 gauge 3/4 non-coring Gripper needle Flush with 5cc's Normal Saline. Blood Return: Good. 10 cc's blood aspirated and discarded. Blood drawn for CBC and CMP. Flushed with: 20 ml Normal Saline and 5 ml Heparin Lock Flush. Non-coring needle removed. Paper tape applied to puncture site. Site negative for redness, edema or tenderness. Patient tolerated procedure well. documented in this encounterWestern Reserve Hospital09-26-2022 Miscellaneous Notes* Telephone Encounter - Caity Cote APRN.ALESSANDRO - 03/01/2022 1:03 PM EDT The following approved medication requests have been transmitted electronically. Requested Prescriptions Signed Prescriptions Disp Refills pregabalin (LYRICA) 150 mg capsule 180 capsule 0 Sig: Take 1 capsule by mouth twice daily for 90 days. Authorizing Provider: CAITY COTE APRN.ALESSANDRO * Telephone Encounter - Chrissie Lama LPN - 03/01/2022 12:51 PM EDT Spoke with [facility], they did not receive escripted rx sent on 02/16 for Lyrica. The new fax number does not affect rx that are escripted. Spoke with pt. She states she did not receive rx. She has 9 pills left. Informed will send new rx. Chrissie Lama LPN * Telephone Encounter - Kenia Dee Pss - 03/01/2022 12:40 PM EDT Patient calling with new fax number [facility]. Please fax Lyrica refill to: [phone] documented in this encounterWestern Reserve Hospital09-21-2022 History of Present illness Narrative* Caity Cote APRN.CNP - 02/24/2022 9:32 AM EDT Chief Complaint Patient presents with: Established Patient HPI: Renate Christiansen is a 66 year old female who presents here today for evaluation for treatment tomorrow. Per Dr. Rivers's previous note: H/o pt. discovered a lump on the lower inner portion of her right breast in the fall of 2015. She was seen at [facility] and underwent a right sided core biopsy on 02/16/2016 by interventional radiology. The tissue specimen demonstrated invasive ductal carcinoma, Yohan grade 2. ERpositive (90%, very weak) and WV negative (0%). HER-2 was quantified at 3+. She underwent a right sided lumpectomy and right axillary sentinel lymph node dissection on 02/26/2016. Final pathology demonstrated that within the lumpectomy specimen there was a 2.5 cm single focus ofinvasive carcinoma. DCIS was present comprising about 10% [...] 3) Nerlyx-stopped d/t diarrhea. Last dose of neratinib . I'm never taking that again. Seen here in early March for complaint of right breast fullness and tenderness. Diagnostic mammogram done on 03/07/2019 did not demonstrate a mass within the breast however on ultrasound there was a0.8 cm x 0.6 cm x 0.9 cm lobulated mass with an indistinct margin in the right breast at 1:00 anterior depth 6 cm in the nipple. It was lobulated and hypoechoic with internal echoes. This corresponded to the tender area. There was also a 1.2 x 0.9 x 2 cm lobulated mass with a circumscribed margin in the right breast at 2:00 anterior depth 7 cm from the nipple. It also was hypoechoic with internalechoes. And it also was tender on exam. Patient next underwent ultrasound-guided right breast needle core biopsy 2 on 03/22/2019. Pathology: MICROSCOPIC DIAGNOSIS A. Right breast at 1 o clock, core biopsy: Invasive ductal carcinoma with the following characteristics: Maximal length - 10 mm Nuclear grade - 3/3 Other findings - ductal carcinoma in situ, nuclear 3/3 with focal comedo necrosis. B. Right breast at 2 o clock, core biopsy: Invasive ductal carcinoma with the following characteristics: Maximal length - 1.2 mm Nuclear grade - 2-3/3 ANTIBODY / CLONE RESULT Block A P53 (DO-7) positive, >90% Ki-67 (30-9) positive, 12% CK8 ([id number]) positive CK5-6 (D5 & 1684) negative Calponin-1 (UK777D) negative P40 (BC28) negative E-Cad (ECH-6) positive MORPHOMETRIC ANALYSIS ER (clone 6F11) 15%, weak intensity WV (clone 16/1E2) 0% Her-2Neu (clone CB11) 3+ Block B Calponin-1 ([id number]) negative P40 (BC28) negative CK8 ([id number]) positive INTERPRETATION: A. Right breast 1 o clock, biopsy: Invasive ductal carcinoma, grade 3/3. Positive for estrogen receptors (favorable prognostic indicator). Negative for progesterone receptors (unfavorable prognostic indicator). Positive for overexpression of AIA2aun. B. Right breast 2 o clock, biopsy: Invasive ductal carcinoma, grade 2-3/3. Then underwent right breast modified mastectomy along with axillary lymph node dissection on 04/02/2019. Pathology: MICROSCOPIC DIAGNOSIS Right breast, modified radical mastectomy: Invasive ductal carcinoma x2. Ductal carcinoma in situ. Five out of five lymph nodes, negative for metastatic carcinoma. Hyalinized fibroadenomas x2. See cancer summary below. SJ:breann 04/05/19 INVASIVE BREAST CANCER SUMMARY: Specimen - total breast (including nipple and skin). Procedure - total mastectomy (including nipple and skin). Lymph node sampling - axillary dissection Specimen integrity - single, intact specimen Specimen laterality - right Tumor site - inner quadrant Tumor size: size of largest invasive carcinoma - 3.5 x 1.5 x 1.5 cm Tumor focality - two foci of invasive carcinoma Size of individual foci - 3.5 x 1.5 x 1.5 cm and 2 x 2 x 1 cm Macroscopic and Microscopic extent of tumor: Skin - invasive carcinoma does not invade into the dermis or epidermis. Nipple - DCIS does not involve nipple epidermis. Skeletal muscle - Skeletal muscle is present and is free of carcinoma. Ductal carcinoma in situ (DCIS) - present Extensive intraductal component (EIC) - negative Estimated size (extent) of DCIS - DCIS is present in the area of invasive carcinoma and comprise about 5% of the total tumor volume. Number of blocks with DCIS - 7 Number of blocks examined (breast tissue) - 16 Architectural patterns - cribriform and comedo Nuclear grade - grade 3 (high) Necrosis - present, central (expansive comedo necrosis) Lobular carcinoma in situ (LCIS) - not identified Histologic type of invasive carcinoma - invasive ductal carcinoma (no special type) Histologic Grade (Yohan grade): Glandular/tubular differentiation - score 3 Nuclear pleomorphism - score 3 Mitotic count - score 2 Overall grade - 3 (score of 8) Both tumor show similar morphologic features. Margins - larger focus of invasive carcinoma is present at the closest posterior margin of the specimen. - smaller focus of invasive carcinoma is 1.7 cm away from closest superior margin. - Margins are free of ductal carcinoma in situ. Treatment effect: Response to presurgical (neoadjuvant) therapy - no known presurgical therapy. Lymph-Vascular invasion - not identified Dermal lymph-vascular invasion - not identified Lymph nodes: Number of sentinel lymph nodes examined - 0 Total number of lymph nodes examined (sentinel and nonsentinel) - 5 Number of lymph nodes with macrometastases, micrometastases and isolated tumor cells - 0 Distant metastasis - not applicable Additional pathologic findings - hyalinized fibroadenomas x2 with focal calcifications. See comment. - Dense fibrosis and lobular involution. Ancillary studies - previously performed on section of tumor ([id number] / [id number]). ER - positive (15%, weak intensity) WV - negative (0%) Her2 krista - positive (3+) Microcalcifications - present in both invasive carcinoma and non-neoplastic tissue. Clinical history - Please make reference to previous specimen ([id number]) right breast at 1 o clock and right breast at 2 o clock core biopsies with diagnosis of invasive ductal carcinoma. PATHOLOGIC STAGE: pT2(m) pN0 Mx Evidently the larger focus of cancer was down to the chest wall muscle. Other significant past medical history was asymptomatic decline in ejection fraction 1 receiving Herceptin. Serial echocardiograms--March 2016 at that time he demonstrated ejection fraction of 72%.Another echocardiogram in September 2016 demonstrated ejection fraction of 55%. In November 2016 was 50% and in May 2017 was 45% with mild global hypokinesis. managed with beta-ruth and ARB. Most recent echocardiogram from May 2018 revealed normal left ventricular size with systolic function at lower limits of normal estimated at 53%. The global longitudinal strain was -19.4% (normal) cis. Stage I diastolic dysfunction was observed. Pulmonary artery pressure was 27 mmHg. Had staging CTs scans that suggested lung metastases. Not able to biopsy. Previous therapy: 1) Taxotere/Herceptin/Perjeta. 2) Herceptin/Perjeta. Discontinued 01/2021 for progressive disease. 3) Kadcyla. 02/2021 through 07/2021. Discontinued secondary to significant worsening of neuropathy. Current therapy: 1) Enhertu. Began 09/10/21 No new concerns today. Pt. here today with her spouse. Appetite:I eat like a horse. Energy level:I've had more lately. Denies fevers. Mouth:denies sores Resp:denies cough or sob Cardiac:denies chest pain/palpitations GI:denies abd pain, n/v, +constipation after treatment-uses prune juice with relief :denies dysuria/hematuria Extrem:chronic b/l knee pain Endo:denies hot flashes Neuro:+neuropathy stable on lyrica Skin:denies rashes Heme:denies bleeding The ROS is otherwise negative. Past medical history, appointments, medications, allergies reviewed. No changes. EXAM: BP 110/65 Pulse 64 Temp 36.9 C (98.4 F) (Temporal) Wt 83.5 kg (184 lb) BMI 34.77 kg/m APPEARANCE Well appearing, alert, in no acute distress, well-hydrated, well nourished. HEART RRR with normal S1 and S2, no murmurs LUNG clear to auscultation LYMPH NODES No cervical lymphadenopathy, No supraclavicular lymphadenopathy, and No axillary lymphadenopathy. ABDOMEN bowel sounds normoactive, soft, non-tender, non-distended, without organomegaly or palpablemasses, no tenderness to palpation EXTREMITIES No edema NEURO Awake, alert and oriented x 3, Normal gait, and No involuntary motions. SKIN Skin color, texture, turgor normal, no suspicious rashes or lesions LABS: Component Latest Ref Rng & Units 12/23/2021 01/07/2022 02/03/2022 02/24/2022 WBC 3.70 - 11.00 k/uL 3.76 8.71 4.41 4.27 RBC 3.90 - 5.20 m/uL 3.31 (L) 3.29 (L) 3.44 (L) 3.38 (L) Hemoglobin 11.5 - 15.5 g/dL 11.5 11.6 12.0 12.1 Hematocrit 36.0 - 46.0 % 34.1 (L) 33.9 (L) 35.8 (L) 35.4 (L) MCV 80.0 - 100.0 fL 103.0 (H) 103.0 (H) 104.1 (H) 104.7 (H) MCH 26.0 - 34.0 pg 34.7 (H) 35.3 (H) 34.9 (H) 35.8 (H) MCHC 30.5 - 36.0 g/dL 33.7 34.2 33.5 34.2 RDW-CV 11.5 - 15.0 % 16.2 (H) 15.2 (H) 14.9 15.1 (H) Platelet Count 150 - 400 k/uL 209 198 228 204 MPV 9.0 - 12.7 fL 9.5 9.3 9.4 9.2 Neut% % 47.9 78.5 47.8 45.2 Abs Neut (ANC) 1.45 - 7.50 k/uL 1.80 6.83 2.11 1.93 Lymph% % 32.4 13.4 34.0 37.2 Abs Lymph 1.00 - 4.00 k/uL 1.22 1.17 1.50 1.59 Cotton% % 11.4 5.2 11.6 11.0 Abs Cotton <0.87 k/uL 0.43 0.45 0.51 0.47 Eosin% % 6.9 2.3 5.9 6.1 Abs Eosin <0.46 k/uL 0.26 0.20 0.26 0.26 Baso% % 1.1 0.3 0.5 0.5 Abs Baso <0.11 k/uL 0.04 0.03 <0.03 <0.03 Immature Gran % % 0.3 0.3 0.2 0.0 IMMATURE GRANS (ABS) <0.10 k/uL <0.03 0.03 <0.03 <0.03 NRBC /100 WBC 0.0 0.0 0.0 0.0 Absolute nRBC <0.01 k/uL <0.01 <0.01 <0.01 <0.01 DTYPE Auto Auto Auto Auto CMP: Pending ASSESSMENT/PLAN: 1. Malignant neoplasm of lower-inner quadrant of right breast of female, estrogen receptor positive(HCC) - ICD9: 174.3, V86.0, ICD10: C50.311, Z17.0 (primary diagnosis) 2. Bone metastases (HCC) - ICD9: 198.5, ICD10: C79.51 3. Chemotherapy-induced neuropathy (HCC) - ICD9: 357.6, E933.1, ICD10: G62.0, T45.1X5A Per Dr. Rivers's previous note 02/03/22: Assessment: -Originally pT2 pN0(sln) MX ER positive (9%, very weak) WV negative HER overexpressed stage IIA invasive ductal carcinoma the right breast. -Recurrent pT2(m) pN0 (none of 5 LNs) MX ER +(15%, weak intensity)/WV negative (0%) HER2 3+ invasive ductal carcinoma the right breast while on AI (anastrozole). Posterior margin positive--more thanjust focal according to pathologist. Pectoralis fascia rem she calixto. Staging workup revealed multiple lung metastases, not biopsy proven. -Kadcyla recently discontinued secondary to sudden worsening of neuropathy. -Neuropathy is responding nicely after rotating from gabapentin to Lyrica. -PET showed PD from lung metastases as well as one cutaneous metastasis. No bone metastases. -Tolerating Enhertu overall very well with exception of constipation that is manageable with prune juice. No symptoms of pneumonitis. -Reviewed CTs 01/07. Very nice continuing response. Plan: -Continue metoprolol to 25 mg BID. -Continue Cozaar 100 mg daily. -Continue Lyrica 150 mg at HS. -Zometa to every 3 months (originally started for hypercalcemia). -US thyroid in a year. -Continue Enhertu. -CT after 3 more cycles. -Echocardiogram every 3 cycles. -Continue follow-up with Dr. Galeano. -Previously stopped IBU for increase in serum Cr. - Overall tolerating Enhertu well except for constipation-relieved by prune juice. - Reviewed CBC with pt. - CMP pending. - Continue current medications. - Continue follow up with cardiology. - ECHO/CT's early April. - Zometa every 3 months. - Proceed as scheduled tomorrow for enhertu pending all labs. - Follow up as scheduled. - Pt. aware to call office with any questions/concerns. The patient indicates understanding of these issues and agrees with the plan. All documentation from previous visit of 02/03/22-Dr. Rivers was copied and pasted, documentation hasbeen reviewed and edited as necessary for today's visit. Caity Cote APRN.ALESSANDRO documented in this encounterWestern [facility] Hospital09-13-2022 Miscellaneous Notes* Telephone Encounter - Chrissie Lama LPN - 02/16/2022 12:13 PM EDT Patient has been identified by name and date of : Yes Requested Prescriptions Pending Prescriptions Disp Refills pregabalin (LYRICA) 150 mg capsule [Pharmacy Med Name: Pregabalin Oral Capsule 150 MG 150 MG Capsule] 180 capsule Sig: TAKE 1 CAPSULE BY MOUTH TWICE DAILY. RX INSTRUCTIONS: Patient aware RX will be sent to pharmacy. No need to notify patient. Chrissie Lama LPN documented in this encounterWestern Reserve Hospital08-31-2022 History of Present illness Narrative* Rip Rivers DO - 02/03/2022 9:50 AM EDT Diagnosis: 1) Metastatic recurrence of ER positive, WV negative, HER2 positive breast cancer. 2) Cardiomyopathy. HPI: The patient is a 66 year old female who discovered a lump on the lower inner portion of her right breast in the fall of 2015. She was seen at [facility] and underwent a right sided core biopsy on 02/16/2016 by interventional radiology. The tissue specimen demonstrated invasive ductal carcinoma, Sorento grade 2. ERpositive (90%, very weak) and WV negative (0%). HER-2 was quantified at 3+. She underwent a right sided lumpectomy and right axillary sentinel lymph node dissection on 02/26/2016. Final pathology demonstrated that within the lumpectomy specimen there was a 2.5 cm single focus ofinvasive carcinoma. DCIS was present comprising about 10% [...] 3) Nerlyx-stopped d/t diarrhea. Last dose of neratinib . I'm never taking that again. Seen here in early March for complaint of right breast fullness and tenderness. Diagnostic mammogram done on 03/07/2019 did not demonstrate a mass within the breast however on ultrasound there was a0.8 cm x 0.6 cm x 0.9 cm lobulated mass with an indistinct margin in the right breast at 1:00 anterior depth 6 cm in the nipple. It was lobulated and hypoechoic with internal echoes. This corresponded to the tender area. There was also a 1.2 x 0.9 x 2 cm lobulated mass with a circumscribed margin in the right breast at 2:00 anterior depth 7 cm from the nipple. It also was hypoechoic with internalechoes. And it also was tender on exam. Patient next underwent ultrasound-guided right breast needle core biopsy 2 on 03/22/2019. Pathology: MICROSCOPIC DIAGNOSIS A. Right breast at 1 o clock, core biopsy: Invasive ductal carcinoma with the following characteristics: Maximal length - 10 mm Nuclear grade - 3/3 Other findings - ductal carcinoma in situ, nuclear 3/3 with focal comedo necrosis. B. Right breast at 2 o clock, core biopsy: Invasive ductal carcinoma with the following characteristics: Maximal length - 1.2 mm Nuclear grade - 2-3/3 ANTIBODY / CLONE RESULT Block A P53 (DO-7) positive, >90% Ki-67 (30-9) positive, 12% CK8 (73dgmoN78) positive CK5-6 (D5 & 1684) negative Calponin-1 (GM472E) negative P40 (BC28) negative E-Cad (ECH-6) positive MORPHOMETRIC ANALYSIS ER (clone 6F11) 15%, weak intensity WV (clone 16/1E2) 0% Her-2Neu (clone CB11) 3+ Block B Calponin-1 (NK187A) negative P40 (BC28) negative CK8 (12dxxwK23) positive INTERPRETATION: A. Right breast 1 o clock, biopsy: Invasive ductal carcinoma, grade 3/3. Positive for estrogen receptors (favorable prognostic indicator). Negative for progesterone receptors (unfavorable prognostic indicator). Positive for overexpression of MUI5wqb. B. Right breast 2 o clock, biopsy: Invasive ductal carcinoma, grade 2-3/3. Then underwent right breast modified mastectomy along with axillary lymph node dissection on 04/02/2019. Pathology: MICROSCOPIC DIAGNOSIS Right breast, modified radical mastectomy: Invasive ductal carcinoma x2. Ductal carcinoma in situ. Five out of five lymph nodes, negative for metastatic carcinoma. Hyalinized fibroadenomas x2. See cancer summary below. SJ:breann 04/05/19 INVASIVE BREAST CANCER SUMMARY: Specimen - total breast (including nipple and skin). Procedure - total mastectomy (including nipple and skin). Lymph node sampling - axillary dissection Specimen integrity - single, intact specimen Specimen laterality - right Tumor site - inner quadrant Tumor size: size of largest invasive carcinoma - 3.5 x 1.5 x 1.5 cm Tumor focality - two foci of invasive carcinoma Size of individual foci - 3.5 x 1.5 x 1.5 cm and 2 x 2 x 1 cm Macroscopic and Microscopic extent of tumor: Skin - invasive carcinoma does not invade into the dermis or epidermis. Nipple - DCIS does not involve nipple epidermis. Skeletal muscle - Skeletal muscle is present and is free of carcinoma. Ductal carcinoma in situ (DCIS) - present Extensive intraductal component (EIC) - negative Estimated size (extent) of DCIS - DCIS is present in the area of invasive carcinoma and comprise about 5% of the total tumor volume. Number of blocks with DCIS - 7 Number of blocks examined (breast tissue) - 16 Architectural patterns - cribriform and comedo Nuclear grade - grade 3 (high) Necrosis - present, central (expansive comedo necrosis) Lobular carcinoma in situ (LCIS) - not identified Histologic type of invasive carcinoma - invasive ductal carcinoma (no special type) Histologic Grade (Sorento grade): Glandular/tubular differentiation - score 3 Nuclear pleomorphism - score 3 Mitotic count - score 2 Overall grade - 3 (score of 8) Both tumor show similar morphologic features. Margins - larger focus of invasive carcinoma is present at the closest posterior margin of the specimen. - smaller focus of invasive carcinoma is 1.7 cm away from closest superior margin. - Margins are free of ductal carcinoma in situ. Treatment effect: Response to presurgical (neoadjuvant) therapy - no known presurgical therapy. Lymph-Vascular invasion - not identified Dermal lymph-vascular invasion - not identified Lymph nodes: Number of sentinel lymph nodes examined - 0 Total number of lymph nodes examined (sentinel and nonsentinel) - 5 Number of lymph nodes with macrometastases, micrometastases and isolated tumor cells - 0 Distant metastasis - not applicable Additional pathologic findings - hyalinized fibroadenomas x2 with focal calcifications. See comment. - Dense fibrosis and lobular involution. Ancillary studies - previously performed on section of tumor ([id number] / [id number]). ER - positive (15%, weak intensity) WV - negative (0%) Her2 krista - positive (3+) Microcalcifications - present in both invasive carcinoma and non-neoplastic tissue. Clinical history - Please make reference to previous specimen ([id number]) right breast at 1 o clock and right breast at 2 o clock core biopsies with diagnosis of invasive ductal carcinoma. PATHOLOGIC STAGE: pT2(m) pN0 Mx Evidently the larger focus of cancer was down to the chest wall muscle. Other significant past medical history was asymptomatic decline in ejection fraction 1 receiving Herceptin. Serial echocardiograms--March 2016 at that time he demonstrated ejection fraction of 72%.Another echocardiogram in September 2016 demonstrated ejection fraction of 55%. In November 2016 was 50% and in May 2017 was 45% with mild global hypokinesis. managed with beta-ruth and ARB. Most recent echocardiogram from May 2018 revealed normal left ventricular size with systolic function at lower limits of normal estimated at 53%. The global longitudinal strain was -19.4% (normal) cis. Stage I diastolic dysfunction was observed. Pulmonary artery pressure was 27 mmHg. Had staging CTs scans that suggested lung metastases. Not able to biopsy. Previous therapy: 1) Taxotere/Herceptin/Perjeta. 2) Herceptin/Perjeta. Discontinued 01/2021 for progressive disease. 3) Kadcyla. 02/2021 through 07/2021. Discontinued secondary to significant worsening of neuropathy. Current therapy: 1) Enhertu. Interim history: Her only side effect from treatment is constipation the first few days after her dose which is relieved with prune juice. Verified again today--She denies cough, wheezing, shortness of breath at rest, chest pain and pressure. No change in chronic dyspnea with heavy exertion. She's had no fever. She is doing her ADLs andIADLs and chores around the house that she enjoys. Subcutaneous metastasis on the anterior lower chest wall no longer palpable to her. PMH, medications and allergies personally reviewed by me today. Any changes documented in appropriate section. ROS: Constitutional: Denies episodes of fever and night sweats. Not significantly fatigued. Normal appetite. Neuro: Denies [place], vertigo, dizziness and imbalance. HEENT: No recent change in voice, vision or hearing. Resp: See above. CVS: See above. GI: Denies dysgeusia. Denies symptoms of stomatitis. Denies dysphagia and odynophagia. Denies abdominal pain. : Denies dysuria or gross hematuria. No symptoms of bladder outlet obstruction. Endo: Denies hot flashes. Denies polyuria and polydipsia. Denies heat and cold intolerance. Musculoskeletal: Denies bone, back, joint and muscular pain. Derm: Denies rash. Denies jaundice and diffuse pruritis. Heme: Denies unusual bleeding and unexplained bruising. Psych: Normal mood. PHYSICAL EXAM: Vitals: Blood pressure 98/60, pulse 66, temperature 36.8 C (98.3 F), temperature source Temporal, weight 83.2 kg (183 lb 8 oz). Well-appearing and in no acute distress. EYES: Sclerae are anicteric bilaterally. LYMPHATIC: There is no palpable cervical, supraclavicular, axillary adenopathy. RESPIRATORY: Inspiratory breath sounds are of normal intensity in all barnes. No rales, wheezes or rhonchi. CARDIOVASCULAR: Rhythm is regular. ABDOMEN: The abdomen is nondistended. Extremities: No swelling or edema. SKIN: Resolution of subcutaneous metastasis near Xyvoid. NEUROLOGIC: smelter liner II-XII are grossly intact. Absent patellar DTRs. ASSESSMENT/PLAN: (C50.311, Z17.0) Malignant neoplasm of lower-inner quadrant of right breast of female, estrogen receptor positive (HCC) (primary encounter diagnosis) Assessment: -Originally pT2 pN0(sln) MX ER positive (9%, very weak) WV negative HER overexpressed stage IIA invasive ductal carcinoma the right breast. -Recurrent pT2(m) pN0 (none of 5 LNs) MX ER +(15%, weak intensity)/WV negative (0%) HER2 3+ invasive ductal carcinoma the right breast while on AI (anastrozole). Posterior margin positive--more thanjust focal according to pathologist. Pectoralis fascia rem she calixto. Staging workup revealed multiple lung metastases, not biopsy proven. -Kadcyla recently discontinued secondary to sudden worsening of neuropathy. -Neuropathy is responding nicely after rotating from gabapentin to Lyrica. -PET showed PD from lung metastases as well as one cutaneous metastasis. No bone metastases. -Tolerating Enhertu overall very well with exception of constipation that is manageable with prune juice. No symptoms of pneumonitis. -Reviewed CTs 01/07. Very nice continuing response. Plan: -Continue metoprolol to 25 mg BID. -Continue Cozaar 100 mg daily. -Continue Lyrica 150 mg at HS. -Zometa to every 3 months (originally started for hypercalcemia). -US thyroid in a year. -Continue Enhertu. -CT after 3 more cycles. -Echocardiogram every 3 cycles. -Continue follow-up with Dr. Galeano. -Previously stopped IBU for increase in serum Cr. Portions of this documentation were copied and pasted from previous office visit notes in order to provide a cohesive continuity of the history. The note has been reviewed and edited and updated as necessary. During this patient visit I have spent approximately 10 minutes out of 20 in counseling regarding treatment options, medications and test results and coordinating care. Rip Rivers DO documented in this encounterWestern [facility] Hospital08-31-2022 History of Present illness Narrative* Nicolle Funez RN - 02/03/2022 7:51 AM EDT Patient is here for IVAD port flush/blood draw per [facility] [place] protocol. IVAD is located in left upper chest. Site cleansed with Chloraprep IVAD accessed with a #20 gauge 3/4 non-coring Gripper needle Flush with 5cc's Normal Saline. Blood Return: Good. 10 cc's blood aspirated and discarded. Blood drawn for CBC and CMP. Flushed with: 20 ml Normal Saline and 5 ml Heparin Lock Flush. Non-coring needle removed. Paper tape applied to puncture site. Site negative for redness, edema or tenderness. Patient tolerated procedure well. documented in this encounterWestern Reserve Hospital08-04-2022 Miscellaneous Notes* Telephone Encounter - Jazlyn Harding LPN - 01/07/2022 11:51 AM EDT New order faxed to [facility] echo lab. Jazlyn Harding LPN * Telephone Encounter - Rip Rivers DO - 01/07/2022 11:44 AM EDT Order filed. Rpi Rivers DO * Telephone Encounter - Jazlyn Harding LPN - 01/07/2022 11:03 AM EDT Tech questioning why another complete echo is needed not a limited echo? Patient just had a complete study done 10/27/2021. Please place a limited echo order if appropriate. Patient is scheduled tomorrow. Jazlyn Harding LPN * Telephone Encounter - Crystal Irby - 01/07/2022 10:[address] [facility] echo lab is calling in regards to this pts order, please call them back at [phone] ext [phone]. Crystal Irby documented in this encounterWestern Reserve Hospital08-04-2022 History of Present illness Narrative* RT Rima(R) - 01/07/2022 10:00 AM EDT Radiology Service Progress Note PATIENT NAME: Renate Christiansen DATE OF SERVICE: January 07, 2022 TIME: 2:26 PM PATIENT IDENTITY VERIFICATION COMPLETED USING TWO (2) IDENTIFIERS: Name and Date of confirmedby patient verbally. FALL SCREENING: Has the patient had 2 falls in the last year or 1 fall with injury or currently using an Ambulatory Assistive Device (Walker, Cane, Wheelchair, Crutches, etc.)? No PATIENT GENDER DATA: Female. status: : No status: NO. PATIENT RELEVANT IMPLANT DATA REVIEWED: Yes RADIOLOGY DEPARTMENT: CT; Exam(s) Completed: Chest Abdomen Pelvis PERIPHERAL IV DATA: power port accessed by hemoc SIGNED BY: RT Ashley(R) January 07, 2022 2:26 PM documented in this encounterWestern Reserve Hospital08-04-2022 History of Present illness Narrative* Nicolle Funez RN - 01/07/2022 7:40 AM EDT Patient is here for IVAD port flush/blood draw per [facility] [place] protocol. IVAD is located in right upper chest. Site cleansed with Chloraprep IVAD accessed with a #20 gauge 3/4 non-coring Gripper needle Flush with 5cc's Normal Saline. Blood Return: Good. 10 cc's blood aspirated and discarded. Blood drawn for CBC and CMP. Flushed with: 20 ml Normal Saline. Non-coring needle left intact for further therapy. Opsite applied to puncture site. Site negative for redness, edema or tenderness. Patient tolerated procedure well. CT complete. Blood Return: Good Flushed with: 20 ml Normal Saline and 5 ml Heparin Lock Flush Non-coring needle removed. Paper tape applied to puncture site. Port site negative for redness, edema or tenderness. Patient tolerated procedure well. documented in this encounterWestern Reserve Hospital07-22-2022 Miscellaneous Notes* Telephone Encounter - Karen Foreman - 12/25/2021 1:00 PM EDT Patient is rescheduled, aware of date and time. Karen Foreman * Telephone Encounter - Leesa Capone Pss - 12/25/2021 11:21 AM EDT Patient called, said she has a CT scheduled on 01/11 but questions the date because Mary Cote said to have it done early Jan so Sil[facility]re can see it? Can be reached at [phone] Thank you Leesa Capone Pss documented in this encounterWestern Reserve Hospital07-21-2022 Miscellaneous Notes* Telephone Encounter - Williams Scott Pss - 12/24/2021 3:52 PM EDT Echo order faxed to [facility]. Patient due end of January. documented in this encounterWestern Reserve Hospital07-20-2022 History of Present illness Narrative* Caity Cote APRN.TERRITORY DEVELOPMENT MANAGER - 12/23/2021 9:28 AM EDT Chief Complaint Patient presents with: Established Patient HPI: Renate Christiansen is a 66 year old female who presents here today for evaluation for treatment tomorrow. Per Dr. Rivers's previous note: H/o pt. discovered a lump on the lower inner portion of her right breast in the fall of 2015. She was seen at [facility] and underwent a right sided core biopsy on 02/16/2016 by interventional radiology. The tissue specimen demonstrated invasive ductal carcinoma, Yohan grade 2. ERpositive (90%, very weak) and WV negative (0%). HER-2 was quantified at 3+. She underwent a right sided lumpectomy and right axillary sentinel lymph node dissection on 02/26/2016. Final pathology demonstrated that within the lumpectomy specimen there was a 2.5 cm single focus ofinvasive carcinoma. DCIS was present comprising about 10% [...] 3) Nerlyx-stopped d/t diarrhea. Last dose of neratinib . I'm never taking that again. Seen here in early March for complaint of right breast fullness and tenderness. Diagnostic mammogram done on 03/07/2019 did not demonstrate a mass within the breast however on ultrasound there was a0.8 cm x 0.6 cm x 0.9 cm lobulated mass with an indistinct margin in the right breast at 1:00 anterior depth 6 cm in the nipple. It was lobulated and hypoechoic with internal echoes. This corresponded to the tender area. There was also a 1.2 x 0.9 x 2 cm lobulated mass with a circumscribed margin in the right breast at 2:00 anterior depth 7 cm from the nipple. It also was hypoechoic with internalechoes. And it also was tender on exam. Patient next underwent ultrasound-guided right breast needle core biopsy 2 on 03/22/2019. Pathology: MICROSCOPIC DIAGNOSIS A. Right breast at 1 o clock, core biopsy: Invasive ductal carcinoma with the following characteristics: Maximal length 10 mm Nuclear grade 3/3 Other findings ductal carcinoma in situ, nuclear 3/3 with focal comedo necrosis. B. Right breast at 2 o clock, core biopsy: Invasive ductal carcinoma with the following characteristics: Maximal length 1.2 mm Nuclear grade 2-3/3 ANTIBODY / CLONE RESULT Block A P53 (DO-7) positive, >90% Ki-67 (30-9) positive, 12% CK8 (08vcqnM21) positive CK5-6 (D5 & 1684) negative Calponin-1 (XO026M) negative P40 (BC28) negative E-Cad (ECH-6) positive MORPHOMETRIC ANALYSIS ER (clone 6F11) 15%, weak intensity WV (clone 16/1E2) 0% Her-2Neu (clone CB11) 3+ Block B Calponin-1 (HH381T) negative P40 (BC28) negative CK8 ([id number]) positive INTERPRETATION: A. Right breast 1 o clock, biopsy: Invasive ductal carcinoma, grade 3/3. Positive for estrogen receptors (favorable prognostic indicator). Negative for progesterone receptors (unfavorable prognostic indicator). Positive for overexpression of SMB8szv. B. Right breast 2 o clock, biopsy: Invasive ductal carcinoma, grade 2-3/3. Then underwent right breast modified mastectomy along with axillary lymph node dissection on 04/02/2019. Pathology: MICROSCOPIC DIAGNOSIS Right breast, modified radical mastectomy: Invasive ductal carcinoma x2. Ductal carcinoma in situ. Five out of five lymph nodes, negative for metastatic carcinoma. Hyalinized fibroadenomas x2. See cancer summary below. SJ:breann 04/05/19 INVASIVE BREAST CANCER SUMMARY: Specimen total breast (including nipple and skin). Procedure total mastectomy (including nipple and skin). Lymph node sampling axillary dissection Specimen integrity single, intact specimen Specimen laterality - right Tumor site inner quadrant Tumor size: size of largest invasive carcinoma 3.5 x 1.5 x 1.5 cm Tumor focality two foci of invasive carcinoma Size of individual foci 3.5 x 1.5 x 1.5 cm and 2 x 2 x 1 cm Macroscopic and Microscopic extent of tumor: Skin invasive carcinoma does not invade into the dermis or epidermis. Nipple DCIS does not involve nipple epidermis. Skeletal muscle Skeletal muscle is present and is free of carcinoma. Ductal carcinoma in situ (DCIS) - present Extensive intraductal component (EIC) - negative Estimated size (extent) of DCIS DCIS is present in the area of invasive carcinoma and comprise about 5% of the total tumor volume. Number of blocks with DCIS - 7 Number of blocks examined (breast tissue) - 16 Architectural patterns cribriform and comedo Nuclear grade grade 3 (high) Necrosis present, central (expansive comedo necrosis) Lobular carcinoma in situ (LCIS) not identified Histologic type of invasive carcinoma invasive ductal carcinoma (no special type) Histologic Grade (Yohan grade): Glandular/tubular differentiation - score 3 Nuclear pleomorphism - score 3 Mitotic count score 2 Overall grade - 3 (score of 8) Both tumor show similar morphologic features. Margins larger focus of invasive carcinoma is present at the closest posterior margin of the specimen. - smaller focus of invasive carcinoma is 1.7 cm away from closest superior margin. - Margins are free of ductal carcinoma in situ. Treatment effect: Response to presurgical (neoadjuvant) therapy - no known presurgical therapy. Lymph-Vascular invasion not identified Dermal lymph-vascular invasion not identified Lymph nodes: Number of sentinel lymph nodes examined - 0 Total number of lymph nodes examined (sentinel and nonsentinel) - 5 Number of lymph nodes with macrometastases, micrometastases and isolated tumor cells - 0 Distant metastasis not applicable Additional pathologic findings hyalinized fibroadenomas x2 with focal calcifications. See comment. - Dense fibrosis and lobular involution. Ancillary studies - previously performed on section of tumor ([id number] / [id number]). ER positive (15%, weak intensity) WV negative (0%) Her2 krista positive (3+) Microcalcifications present in both invasive carcinoma and non-neoplastic tissue. Clinical history - Please make reference to previous specimen ([id number]) right breast at 1 o clock and right breast at 2 o clock core biopsies with diagnosis of invasive ductal carcinoma. PATHOLOGIC STAGE: pT2(m) pN0 Mx Evidently the larger focus of cancer was down to the chest wall muscle. Other significant past medical history was asymptomatic decline in ejection fraction 1 receiving Herceptin. Serial echocardiograms--March 2016 at that time he demonstrated ejection fraction of 72%.Another echocardiogram in September 2016 demonstrated ejection fraction of 55%. In November 2016 was 50% and in May 2017 was 45% with mild global hypokinesis. managed with beta-ruth and ARB. Most recent echocardiogram from May 2018 revealed normal left ventricular size with systolic function at lower limits of normal estimated at 53%. The global longitudinal strain was -19.4% (normal) cis. Stage I diastolic dysfunction was observed. Pulmonary artery pressure was 27 mmHg. Had staging CTs scans that suggested lung metastases. Not able to biopsy. Previous therapy: 1) Taxotere/Herceptin/Perjeta. 2) Herceptin/Perjeta. Discontinued 01/2021 for progressive disease. 3) Kadcyla. 02/2021 through 07/2021. Discontinued secondary to significant worsening of neuropathy. Current therapy: 1) Enhertu. Began 09/10/21 No new concerns today. Appetite:Good. Energy level:Ok. Denies fevers or recent illness. Mouth:denies sores Resp:denies cough or sob Cardiac:denies chest pain/palpitations GI:denies abd pain, n/v, moving bowels regularly-drinks prune juice for 3 days after treatment :denies dysuria/hematuria Extrem:denies pain Neuro:neuropathy stable to fingers/toes Skin:denies rashes Heme:denies bleeding The ROS is otherwise negative. Past medical history, appointments, medications, allergies reviewed. No changes. EXAM: BP 122/59 Pulse (!) 58 Temp 36.7 C (98.1 F) (Temporal) Wt 82.1 kg (181 lb) BMI 34.20 kg/m APPEARANCE Well appearing, alert, in no acute distress, well-hydrated, well nourished. HEART RRR with normal S1 and S2, no murmurs LUNG clear to auscultation LYMPH NODES No cervical lymphadenopathy, No supraclavicular lymphadenopathy and No axillary lymphadenopathy. ABDOMEN bowel sounds normoactive, soft, non-tender, non-distended, without organomegaly or palpablemasses EXTREMITIES No edema NEURO Awake, alert and oriented x 3, Normal gait and No involuntary motions. SKIN Skin color, texture, turgor normal, no suspicious rashes or lesions LABS: Component Latest Ref Rng & Units 11/06/2021 12/02/2021 12/23/2021 WBC 3.70 - 11.00 k/uL 5.21 3.98 3.76 RBC 3.90 - 5.20 m/uL 3.46 (L) 3.50 (L) 3.31 (L) Hemoglobin 11.5 - 15.5 g/dL 11.1 (L) 12.0 11.5 Hematocrit 36.0 - 46.0 % 33.8 (L) 35.5 (L) 34.1 (L) MCV 80.0 - 100.0 fL 97.7 101.4 (H) 103.0 (H) MCH 26.0 - 34.0 pg 32.1 34.3 (H) 34.7 (H) MCHC 30.5 - 36.0 g/dL 32.8 33.8 33.7 RDW-CV 11.5 - 15.0 % 18.0 (H) 17.7 (H) 16.2 (H) Platelet Count 150 - 400 k/uL 229 223 209 MPV 9.0 - 12.7 fL 9.4 9.5 9.5 Neut% % 55.6 48.9 47.9 Abs Neut (ANC) 1.45 - 7.50 k/uL 2.90 1.95 1.80 Lymph% % 29.8 31.7 32.4 Abs Lymph 1.00 - 4.00 k/uL 1.55 1.26 1.22 Cotton% % 7.1 11.1 11.4 Abs Cotton <0.87 k/uL 0.37 0.44 0.43 Eosin% % 6.7 7.5 6.9 Abs Eosin <0.46 k/uL 0.35 0.30 0.26 Baso% % 0.6 0.8 1.1 Abs Baso <0.11 k/uL 0.03 0.03 0.04 Immature Gran % % 0.2 0.0 0.3 IMMATURE GRANS (ABS) <0.10 k/uL <0.03 <0.03 <0.03 NRBC /100 WBC 0.0 0.0 0.0 Absolute nRBC <0.01 k/uL <0.01 <0.01 <0.01 DTYPE Auto Auto Auto CMP: Pending ASSESSMENT/PLAN: 1. Malignant neoplasm of lower-inner quadrant of right breast of female, estrogen receptor positive(HCC) - ICD9: 174.3, V86.0, ICD10: C50.311, Z17.0 (primary diagnosis) 2. Bone metastases (HCC) - ICD9: 198.5, ICD10: C79.51 3. Malignant neoplasm metastatic to both lungs (HCC) - ICD9: 197.0, ICD10: C78.01, C78.02 4. Skin, 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) - ICD9: 198.2, ICD10: C79.[address] Rivers's previous note 12/02/21: Assessment: -Originally pT2 pN0(sln) MX ER positive (9%, very weak) WV negative HER overexpressed stage IIA invasive ductal carcinoma the right breast. -Recurrent pT2(m) pN0 (none of 5 LNs) MX ER +(15%, weak intensity)/WV negative (0%) HER2 3+ invasive ductal carcinoma the right breast while on AI (anastrozole). Posterior margin positive--more thanjust focal according to pathologist. Pectoralis fascia rem she calixto. Staging workup revealed multiple lung metastases, not biopsy proven. -Kadcyla recently discontinued secondary to sudden worsening of neuropathy. -Neuropathy is responding nicely after rotating from gabapentin to Lyrica. -PET showed PD from lung metastases as well as one cutaneous metastasis. No bone metastases. -Tolerating Enhertu overall very well with exception of constipation that is manageable with prune juice. No symptoms of pneumonitis. Plan: -Continue metoprolol to 25 mg BID. -Continue Cozaar 100 mg daily. -Continue Lyrica 150 mg at HS. -Zometa to every 3 months (originally started for hypercalcemia). -US thyroid in a year. -Continue Enhertu. -CT after 2-3 further cycles. -Echocardiogram every 3 cycles. -Continue follow-up with Dr. Galeano. -Previously stopped IBU for increase in serum Cr. - Overall tolerating enhertu well except for constipation-taking prune juice with relief. - Reviewed CBC with pt. - CMP pending. - Continue current medications. - Continue to follow up with Cardiology. - ECHO every 3 months. - ECHO due end of January-at [facility]. - CT's early first week of January. - Zometa every 3 months. - Please scheduled for straight back on . Cancel OV -per T. request. - Proceed as scheduled tomorrow for enhertu-pending all labs. - Follow up with Dr. Rivers when due for next cycle end of January with CBC/CMP. - Pt. aware to call office with any questions/concerns. The patient indicates understanding of these issues and agrees with the plan. All documentation from previous visit of 12/02/21-Dr. Rivers was copied and pasted, documentation hasbeen reviewed and edited as necessary for today's visit. Caity Cote APRN.ALESSANDRO documented in this encounterWestern [facility]06[facility] History of Present illness Narrative* Rip Rivers DO - 12/02/2021 11:47 AM EDT Diagnosis: 1) Metastatic recurrence of ER positive, WV negative, HER2 positive breast cancer. 2) Cardiomyopathy. HPI: The patient is a 66 year old female who discovered a lump on the lower inner portion of her right breast in the fall of 2015. She was seen at [facility] and underwent a right sided core biopsy on 02/16/2016 by interventional radiology. The tissue specimen demonstrated invasive ductal carcinoma, Yohan grade 2. ERpositive (90%, very weak) and WV negative (0%). HER-2 was quantified at 3+. She underwent a right sided lumpectomy and right axillary sentinel lymph node dissection on 02/26/2016. Final pathology demonstrated that within the lumpectomy specimen there was a 2.5 cm single focus ofinvasive carcinoma. DCIS was present comprising about 10% [...] 3) Nerlyx-stopped d/t diarrhea. Last dose of neratinib . I'm never taking that again. Seen here in early March for complaint of right breast fullness and tenderness. Diagnostic mammogram done on 03/07/2019 did not demonstrate a mass within the breast however on ultrasound there was a0.8 cm x 0.6 cm x 0.9 cm lobulated mass with an indistinct margin in the right breast at 1:00 anterior depth 6 cm in the nipple. It was lobulated and hypoechoic with internal echoes. This corresponded to the tender area. There was also a 1.2 x 0.9 x 2 cm lobulated mass with a circumscribed margin in the right breast at 2:00 anterior depth 7 cm from the nipple. It also was hypoechoic with internalechoes. And it also was tender on exam. Patient next underwent ultrasound-guided right breast needle core biopsy 2 on 03/22/2019. Pathology: MICROSCOPIC DIAGNOSIS A. Right breast at 1 o clock, core biopsy: Invasive ductal carcinoma with the following characteristics: Maximal length 10 mm Nuclear grade 3/3 Other findings ductal carcinoma in situ, nuclear 3/3 with focal comedo necrosis. B. Right breast at 2 o clock, core biopsy: Invasive ductal carcinoma with the following characteristics: Maximal length 1.2 mm Nuclear grade 2-3/3 ANTIBODY / CLONE RESULT Block A P53 (DO-7) positive, >90% Ki-67 (30-9) positive, 12% CK8 (70kajiM45) positive CK5-6 (D5 & 1684) negative Calponin-1 (LD378Z) negative P40 (BC28) negative E-Cad (ECH-6) positive MORPHOMETRIC ANALYSIS ER (clone 6F11) 15%, weak intensity WV (clone 16/1E2) 0% Her-2Neu (clone CB11) 3+ Block B Calponin-1 (IM722Z) negative P40 (BC28) negative CK8 ([id number]) positive INTERPRETATION: A. Right breast 1 o clock, biopsy: Invasive ductal carcinoma, grade 3/3. Positive for estrogen receptors (favorable prognostic indicator). Negative for progesterone receptors (unfavorable prognostic indicator). Positive for overexpression of FFB2zxn. B. Right breast 2 o clock, biopsy: Invasive ductal carcinoma, grade 2-3/3. Then underwent right breast modified mastectomy along with axillary lymph node dissection on 04/02/2019. Pathology: MICROSCOPIC DIAGNOSIS Right breast, modified radical mastectomy: Invasive ductal carcinoma x2. Ductal carcinoma in situ. Five out of five lymph nodes, negative for metastatic carcinoma. Hyalinized fibroadenomas x2. See cancer summary below. SJ:breann 04/05/19 INVASIVE BREAST CANCER SUMMARY: Specimen total breast (including nipple and skin). Procedure total mastectomy (including nipple and skin). Lymph node sampling axillary dissection Specimen integrity single, intact specimen Specimen laterality - right Tumor site inner quadrant Tumor size: size of largest invasive carcinoma 3.5 x 1.5 x 1.5 cm Tumor focality two foci of invasive carcinoma Size of individual foci 3.5 x 1.5 x 1.5 cm and 2 x 2 x 1 cm Macroscopic and Microscopic extent of tumor: Skin invasive carcinoma does not invade into the dermis or epidermis. Nipple DCIS does not involve nipple epidermis. Skeletal muscle Skeletal muscle is present and is free of carcinoma. Ductal carcinoma in situ (DCIS) - present Extensive intraductal component (EIC) - negative Estimated size (extent) of DCIS DCIS is present in the area of invasive carcinoma and comprise about 5% of the total tumor volume. Number of blocks with DCIS - 7 Number of blocks examined (breast tissue) - 16 Architectural patterns cribriform and comedo Nuclear grade grade 3 (high) Necrosis present, central (expansive comedo necrosis) Lobular carcinoma in situ (LCIS) not identified Histologic type of invasive carcinoma invasive ductal carcinoma (no special type) Histologic Grade (Sorento grade): Glandular/tubular differentiation - score 3 Nuclear pleomorphism - score 3 Mitotic count score 2 Overall grade - 3 (score of 8) Both tumor show similar morphologic features. Margins larger focus of invasive carcinoma is present at the closest posterior margin of the specimen. - smaller focus of invasive carcinoma is 1.7 cm away from closest superior margin. - Margins are free of ductal carcinoma in situ. Treatment effect: Response to presurgical (neoadjuvant) therapy - no known presurgical therapy. Lymph-Vascular invasion not identified Dermal lymph-vascular invasion not identified Lymph nodes: Number of sentinel lymph nodes examined - 0 Total number of lymph nodes examined (sentinel and nonsentinel) - 5 Number of lymph nodes with macrometastases, micrometastases and isolated tumor cells - 0 Distant metastasis not applicable Additional pathologic findings hyalinized fibroadenomas x2 with focal calcifications. See comment. - Dense fibrosis and lobular involution. Ancillary studies - previously performed on section of tumor ([id number] / [id number]). ER positive (15%, weak intensity) WV negative (0%) Her2 krista positive (3+) Microcalcifications present in both invasive carcinoma and non-neoplastic tissue. Clinical history - Please make reference to previous specimen ([id number]) right breast at 1 o clock and right breast at 2 o clock core biopsies with diagnosis of invasive ductal carcinoma. PATHOLOGIC STAGE: pT2(m) pN0 Mx Evidently the larger focus of cancer was down to the chest wall muscle. Other significant past medical history was asymptomatic decline in ejection fraction 1 receiving Herceptin. Serial echocardiograms--March 2016 at that time he demonstrated ejection fraction of 72%.Another echocardiogram in September 2016 demonstrated ejection fraction of 55%. In November 2016 was 50% and in May 2017 was 45% with mild global hypokinesis. managed with beta-ruth and ARB. Most recent echocardiogram from May 2018 revealed normal left ventricular size with systolic function at lower limits of normal estimated at 53%. The global longitudinal strain was -19.4% (normal) cis. Stage I diastolic dysfunction was observed. Pulmonary artery pressure was 27 mmHg. Had staging CTs scans that suggested lung metastases. Not able to biopsy. Previous therapy: 1) Taxotere/Herceptin/Perjeta. 2) Herceptin/Perjeta. Discontinued 01/2021 for progressive disease. 3) Kadcyla. 02/2021 through 07/2021. Discontinued secondary to significant worsening of neuropathy. Current therapy: 1) Enhertu. Interim history: She continues to feel great. Her only side effect from treatment is constipation the first few days after her dose which is relieved with prune juice. She denies cough, wheezing, shortness of breath at rest, chest pain and pressure. No change in chronic dyspnea with heavy exertion. She's had no fever. She is doing her ADLs and IADLs and chores around the house that she enjoys. Subcutaneous metastasis on the anterior lower chest wall no longer palpable to her. PMH, medications and allergies personally reviewed by me today. Any changes documented in appropriate section. ROS: Constitutional: Denies episodes of fever and night sweats. Not significantly fatigued. Normal appetite. Neuro: Denies [place], vertigo, dizziness and imbalance. HEENT: No recent change in voice, vision or hearing. Resp: See above. CVS: See above. GI: Denies dysgeusia. Denies symptoms of stomatitis. Denies dysphagia and odynophagia. Denies abdominal pain. : Denies dysuria or gross hematuria. No symptoms of bladder outlet obstruction. Endo: Denies hot flashes. Denies polyuria and polydipsia. Denies heat and cold intolerance. Musculoskeletal: Denies bone, back, joint and muscular pain. Derm: Denies rash. Denies jaundice and diffuse pruritis. Heme: Denies unusual bleeding and unexplained bruising. Psych: Normal mood. PHYSICAL EXAM: Vitals: Blood pressure 126/63, pulse 65, temperature 36.2 C (97.1 F), temperature source Temporal, SpO2 97 %. Well-appearing and in no acute distress. EYES: Sclerae are anicteric bilaterally. LYMPHATIC: There is no palpable cervical, supraclavicular, axillary adenopathy. RESPIRATORY: Inspiratory breath sounds are of normal intensity in all barnes. No rales, wheezes or rhonchi. CARDIOVASCULAR: Rhythm is regular. ABDOMEN: The abdomen is nondistended. Extremities: No swelling or edema. SKIN: Resolution of subcutaneous metastasis near Xyvoid. NEUROLOGIC: smelter liner II-XII are grossly intact. Absent patellar DTRs. ASSESSMENT/PLAN: (C50.311, Z17.0) Malignant neoplasm of lower-inner quadrant of right breast of female, estrogen receptor positive (HCC) (primary encounter diagnosis) Assessment: -Originally pT2 pN0(sln) MX ER positive (9%, very weak) WV negative HER overexpressed stage IIA invasive ductal carcinoma the right breast. -Recurrent pT2(m) pN0 (none of 5 LNs) MX ER +(15%, weak intensity)/WV negative (0%) HER2 3+ invasive ductal carcinoma the right breast while on AI (anastrozole). Posterior margin positive--more thanjust focal according to pathologist. Pectoralis fascia rem she calixto. Staging workup revealed multiple lung metastases, not biopsy proven. -Kadcyla recently discontinued secondary to sudden worsening of neuropathy. -Neuropathy is responding nicely after rotating from gabapentin to Lyrica. -PET showed PD from lung metastases as well as one cutaneous metastasis. No bone metastases. -Tolerating Enhertu overall very well with exception of constipation that is manageable with prune juice. No symptoms of pneumonitis. Plan: -Continue metoprolol to 25 mg BID. -Continue Cozaar 100 mg daily. -Continue Lyrica 150 mg at HS. -Zometa to every 3 months (originally started for hypercalcemia). -US thyroid in a year. -Continue Enhertu. -CT after 2-3 further cycles. -Echocardiogram every 3 cycles. -Continue follow-up with Dr. Galeano. -Previously stopped IBU for increase in serum Cr. Portions of this documentation were copied and pasted from previous office visit notes in order to provide a cohesive continuity of the history. The note has been reviewed and edited and updated as necessary. During this patient visit I have spent approximately 10 minutes out of 20 in counseling regarding treatment options, medications and test results and coordinating care. Rip Rivers DO documented in this encounterCleveland [id number] History of Present illness Narrative* Nicolle Funez RN - 12/02/2021 7:35 AM EDT Patient is here for IVAD port flush/blood draw per [facility] [place] protocol. IVAD is located in right upper chest. Site cleansed with Chloraprep IVAD accessed with a #20 gauge 3/4 non-coring Gripper needle Flush with 5cc's Normal Saline. Blood Return: Good. 10 cc's blood aspirated and discarded. Blood drawn for CBC and CMP. Flushed with: 20 ml Normal Saline and 5 ml Heparin Lock Flush. Non-coring needle removed. Paper tape applied to puncture site. Site negative for redness, edema or tenderness. Patient tolerated procedure well. documented in this encounterWestern [facility]06-[facility]22 History of Present illness Narrative* Rip Rivers DO - 11/11/2021 10:34 AM EDT Diagnosis: 1) Metastatic recurrence of ER positive, WV negative, HER2 positive breast cancer. 2) Cardiomyopathy. HPI: The patient is a 66 year old female who discovered a lump on the lower inner portion of her right breast in the fall of 2015. She was seen at [facility] and underwent a right sided core biopsy on 02/16/2016 by interventional radiology. The tissue specimen demonstrated invasive ductal carcinoma, Yohan grade 2. ERpositive (90%, very weak) and WV negative (0%). HER-2 was quantified at 3+. She underwent a right sided lumpectomy and right axillary sentinel lymph node dissection on 02/26/2016. Final pathology demonstrated that within the lumpectomy specimen there was a 2.5 cm single focus ofinvasive carcinoma. DCIS was present comprising about 10% [...] 3) Nerlyx-stopped d/t diarrhea. Last dose of neratinib . I'm never taking that again. Seen here in early March for complaint of right breast fullness and tenderness. Diagnostic mammogram done on 03/07/2019 did not demonstrate a mass within the breast however on ultrasound there was a0.8 cm x 0.6 cm x 0.9 cm lobulated mass with an indistinct margin in the right breast at 1:00 anterior depth 6 cm in the nipple. It was lobulated and hypoechoic with internal echoes. This corresponded to the tender area. There was also a 1.2 x 0.9 x 2 cm lobulated mass with a circumscribed margin in the right breast at 2:00 anterior depth 7 cm from the nipple. It also was hypoechoic with internalechoes. And it also was tender on exam. Patient next underwent ultrasound-guided right breast needle core biopsy 2 on 03/22/2019. Pathology: MICROSCOPIC DIAGNOSIS A. Right breast at 1 o clock, core biopsy: Invasive ductal carcinoma with the following characteristics: Maximal length 10 mm Nuclear grade 3/3 Other findings ductal carcinoma in situ, nuclear 3/3 with focal comedo necrosis. B. Right breast at 2 o clock, core biopsy: Invasive ductal carcinoma with the following characteristics: Maximal length 1.2 mm Nuclear grade 2-3/3 ANTIBODY / CLONE RESULT Block A P53 (DO-7) positive, >90% Ki-67 (30-9) positive, 12% CK8 (57hyiaC11) positive CK5-6 (D5 & 1684) negative Calponin-1 (RD269Y) negative P40 (BC28) negative E-Cad (ECH-6) positive MORPHOMETRIC ANALYSIS ER (clone 6F11) 15%, weak intensity WV (clone 16/1E2) 0% Her-2Neu (clone CB11) 3+ Block B Calponin-1 (WF771J) negative P40 (BC28) negative CK8 (99obwwG93) positive INTERPRETATION: A. Right breast 1 o clock, biopsy: Invasive ductal carcinoma, grade 3/3. Positive for estrogen receptors (favorable prognostic indicator). Negative for progesterone receptors (unfavorable prognostic indicator). Positive for overexpression of GNG8qns. B. Right breast 2 o clock, biopsy: Invasive ductal carcinoma, grade 2-3/3. Then underwent right breast modified mastectomy along with axillary lymph node dissection on 04/02/2019. Pathology: MICROSCOPIC DIAGNOSIS Right breast, modified radical mastectomy: Invasive ductal carcinoma x2. Ductal carcinoma in situ. Five out of five lymph nodes, negative for metastatic carcinoma. Hyalinized fibroadenomas x2. See cancer summary below. SJ:breann 04/05/19 INVASIVE BREAST CANCER SUMMARY: Specimen total breast (including nipple and skin). Procedure total mastectomy (including nipple and skin). Lymph node sampling axillary dissection Specimen integrity single, intact specimen Specimen laterality - right Tumor site inner quadrant Tumor size: size of largest invasive carcinoma 3.5 x 1.5 x 1.5 cm Tumor focality two foci of invasive carcinoma Size of individual foci 3.5 x 1.5 x 1.5 cm and 2 x 2 x 1 cm Macroscopic and Microscopic extent of tumor: Skin invasive carcinoma does not invade into the dermis or epidermis. Nipple DCIS does not involve nipple epidermis. Skeletal muscle Skeletal muscle is present and is free of carcinoma. Ductal carcinoma in situ (DCIS) - present Extensive intraductal component (EIC) - negative Estimated size (extent) of DCIS DCIS is present in the area of invasive carcinoma and comprise about 5% of the total tumor volume. Number of blocks with DCIS - 7 Number of blocks examined (breast tissue) - 16 Architectural patterns cribriform and comedo Nuclear grade grade 3 (high) Necrosis present, central (expansive comedo necrosis) Lobular carcinoma in situ (LCIS) not identified Histologic type of invasive carcinoma invasive ductal carcinoma (no special type) Histologic Grade (Yohan grade): Glandular/tubular differentiation - score 3 Nuclear pleomorphism - score 3 Mitotic count score 2 Overall grade - 3 (score of 8) Both tumor show similar morphologic features. Margins larger focus of invasive carcinoma is present at the closest posterior margin of the specimen. - smaller focus of invasive carcinoma is 1.7 cm away from closest superior margin. - Margins are free of ductal carcinoma in situ. Treatment effect: Response to presurgical (neoadjuvant) therapy - no known presurgical therapy. Lymph-Vascular invasion not identified Dermal lymph-vascular invasion not identified Lymph nodes: Number of sentinel lymph nodes examined - 0 Total number of lymph nodes examined (sentinel and nonsentinel) - 5 Number of lymph nodes with macrometastases, micrometastases and isolated tumor cells - 0 Distant metastasis not applicable Additional pathologic findings hyalinized fibroadenomas x2 with focal calcifications. See comment. - Dense fibrosis and lobular involution. Ancillary studies - previously performed on section of tumor ([id number] / [id number]). ER positive (15%, weak intensity) WV negative (0%) Her2 krista positive (3+) Microcalcifications present in both invasive carcinoma and non-neoplastic tissue. Clinical history - Please make reference to previous specimen ([id number]) right breast at 1 o clock and right breast at 2 o clock core biopsies with diagnosis of invasive ductal carcinoma. PATHOLOGIC STAGE: pT2(m) pN0 Mx Evidently the larger focus of cancer was down to the chest wall muscle. Other significant past medical history was asymptomatic decline in ejection fraction 1 receiving Herceptin. Serial echocardiograms--March 2016 at that time he demonstrated ejection fraction of 72%.Another echocardiogram in September 2016 demonstrated ejection fraction of 55%. In November 2016 was 50% and in May 2017 was 45% with mild global hypokinesis. managed with beta-ruth and ARB. Most recent echocardiogram from May 2018 revealed normal left ventricular size with systolic function at lower limits of normal estimated at 53%. The global longitudinal strain was -19.4% (normal) cis. Stage I diastolic dysfunction was observed. Pulmonary artery pressure was 27 mmHg. Had staging CTs scans that suggested lung metastases. Not able to biopsy. Previous therapy: 1) Taxotere/Herceptin/Perjeta. 2) Herceptin/Perjeta. Discontinued 01/2021 for progressive disease. 3) Kadcyla. 02/2021 through 07/2021. Discontinued secondary to significant worsening of neuropathy. Current therapy: 1) Enhertu. Interim history: Says she feels great. Only side effect from treatment thus far is constipation which she uses prune juice for and that helps and makes it manageable. She denies cough, wheezing, shortness of breath at rest and with exertion, chest pain and pressure.She is had no fever. She is doing her ADLs and IADLs and chores around the house that she enjoys. Subjectively she has had less pain and tenderness at the subcutaneous metastasis on the anterior lower chest wall. PMH, medications and allergies personally reviewed by me today. Any changes documented in appropriate section. ROS: Constitutional: Denies episodes of fever and night sweats. Not significantly fatigued. Normal appetite. Neuro: Denies [place], vertigo, dizziness and imbalance. HEENT: No recent change in voice, vision or hearing. Resp: See above. CVS: See above. GI: Denies dysgeusia. Denies symptoms of stomatitis. Denies dysphagia and odynophagia. Denies abdominal pain. : Denies dysuria or gross hematuria. No symptoms of bladder outlet obstruction. Endo: Denies hot flashes. Denies polyuria and polydipsia. Denies heat and cold intolerance. Musculoskeletal: Denies bone, back, joint and muscular pain. Derm: Denies rash. Denies jaundice and diffuse pruritis. Heme: Denies unusual bleeding and unexplained bruising. Psych: Normal mood. PHYSICAL EXAM: Vitals: Blood pressure 137/68, pulse 60, temperature 36.7 C (98.1 F), weight 83.5 kg (184 lb), FtG095 %. Well-appearing and in no acute distress. EYES: Sclerae are anicteric bilaterally. LYMPHATIC: There is no palpable cervical, supraclavicular, axillary adenopathy. RESPIRATORY: Inspiratory breath sounds are of normal intensity in all barnes. No rales, wheezes or rhonchi. CARDIOVASCULAR: Rhythm is regular. ABDOMEN: The abdomen is nondistended. Extremities: No swelling or edema. SKIN: Resolution of subcutaneous metastasis near Xyvoid. NEUROLOGIC: smelter liner II-XII are grossly intact. Absent patellar DTRs. ASSESSMENT/PLAN: (C50.311, Z17.0) Malignant neoplasm of lower-inner quadrant of right breast of female, estrogen receptor positive (HCC) (primary encounter diagnosis) Assessment: -Originally pT2 pN0(sln) MX ER positive (9%, very weak) WV negative HER overexpressed stage IIA invasive ductal carcinoma the right breast. -Recurrent pT2(m) pN0 (none of 5 LNs) MX ER +(15%, weak intensity)/WV negative (0%) HER2 3+ invasive ductal carcinoma the right breast while on AI (anastrozole). Posterior margin positive--more thanjust focal according to pathologist. Pectoralis fascia rem she calixto. Staging workup revealed multiple lung metastases, not biopsy proven. -Kadcyla recently discontinued secondary to sudden worsening of neuropathy. -Neuropathy is responding nicely after rotating from gabapentin to Lyrica. -Recent PET showed PD from lung metastases as well as one cutaneous metastasis. No bone metastases. -Tolerating Enhertu overall very well with exception of constipation that is manageable with prune juice. No symptoms of pneumonitis. -Reviewed CT scans in detail. Response of subcutaneous nodule and lung nodules. Plan: -Continue metoprolol to 25 mg BID. -Continue Cozaar 100 mg daily. -Continue Lyrica 150 mg at HS. -Change Zometa to every 3 months (originally started for hypercalcemia). -US thyroid. -Continue Enhertu. -CT after 3 further cycles. -Echocardiogram every 3 cycles. -Continue follow-up with Dr. Galeano. -Previously stopped IBU for increase in serum Cr. Portions of this documentation were copied and pasted from previous office visit notes in order to provide a cohesive continuity of the history. The note has been reviewed and edited and updated as necessary. During this patient visit I have spent approximately 20 minutes out of 25 in counseling regarding treatment options, medications and test results and coordinating care. Rip Rivers DO documented in this encounterWestern [facility]06-[facility]22 History of Present illness Narrative* RT Rima(R) - 11/06/2021 10:40 AM EDT Radiology Service Progress Note PATIENT NAME: Renate Christiansen DATE OF SERVICE: November 06, 2021 TIME: 3:14 PM PATIENT IDENTITY VERIFICATION COMPLETED USING TWO (2) IDENTIFIERS: Name and Date of confirmedby patient verbally. FALL SCREENING: Has the patient had 2 falls in the last year or 1 fall with injury or currently using an Ambulatory Assistive Device (Walker, Cane, Wheelchair, Crutches, etc.)? No PATIENT GENDER DATA: Female. status: : No status: NO. PATIENT RELEVANT IMPLANT DATA REVIEWED: Yes RADIOLOGY DEPARTMENT: CT; Exam(s) Completed: Chest Abdomen Pelvis PERIPHERAL IV DATA: power port accessed by [id number] SIGNED BY: RT Ashley(R) November 06, 2021 3:14 PM documented in this encounterWestern [facility]05-19-2022 History of Present illness Narrative* Rosemary Romero RN - 10/22/2021 9:50 AM EDT Assessment unchanged from office visit with Mary Cote on 10/21/21 documented in this encounterWestern [facility] Hospital05-18-2022 Miscellaneous Notes* Telephone Encounter - Williams Scott Pss - 10/21/2021 10:16 AM EDT Echo order faxed to [facility]. documented in this encounterWestern Reserve Hospital05-18-2022 History of Present illness Narrative* Caity Cote APRN.TERRITORY DEVELOPMENT MANAGER - 10/21/2021 9:17 AM EDT Chief Complaint Patient presents with: Established Patient HPI: Renate Christiansen is a 66 year old female who presents here today for evaluation for treatment tomorrow. Per Dr. Rivers's previous note: H/o discovered a lump on the lower inner portion of her right breast in the fall of 2015. She was seen at [facility] and underwent a right sided core biopsy on 02/16/2016 by interventional radiology. The tissue specimen demonstrated invasive ductal carcinoma, Yohan grade 2. ERpositive (90%, very weak) and WV negative (0%). HER-2 was quantified at 3+. She underwent a right sided lumpectomy and right axillary sentinel lymph node dissection on 02/26/2016. Final pathology demonstrated that within the lumpectomy specimen there was a 2.5 cm single focus ofinvasive carcinoma. DCIS was present comprising about 10% [...] 3) Nerlyx-stopped d/t diarrhea. Last dose of neratinib . I'm never taking that again. Seen here in early March for complaint of right breast fullness and tenderness. Diagnostic mammogram done on 03/07/2019 did not demonstrate a mass within the breast however on ultrasound there was a0.8 cm x 0.6 cm x 0.9 cm lobulated mass with an indistinct margin in the right breast at 1:00 anterior depth 6 cm in the nipple. It was lobulated and hypoechoic with internal echoes. This corresponded to the tender area. There was also a 1.2 x 0.9 x 2 cm lobulated mass with a circumscribed margin in the right breast at 2:00 anterior depth 7 cm from the nipple. It also was hypoechoic with internalechoes. And it also was tender on exam. Patient next underwent ultrasound-guided right breast needle core biopsy 2 on 03/22/2019. Pathology: MICROSCOPIC DIAGNOSIS A. Right breast at 1 o clock, core biopsy: Invasive ductal carcinoma with the following characteristics: Maximal length 10 mm Nuclear grade 3/3 Other findings ductal carcinoma in situ, nuclear 3/3 with focal comedo necrosis. B. Right breast at 2 o clock, core biopsy: Invasive ductal carcinoma with the following characteristics: Maximal length 1.2 mm Nuclear grade 2-3/3 ANTIBODY / CLONE RESULT Block A P53 (DO-7) positive, >90% Ki-67 (30-9) positive, 12% CK8 (65erobI14) positive CK5-6 (D5 & 1684) negative Calponin-1 (ZV271H) negative P40 (BC28) negative E-Cad (ECH-6) positive MORPHOMETRIC ANALYSIS ER (clone 6F11) 15%, weak intensity WV (clone 16/1E2) 0% Her-2Neu (clone CB11) 3+ Block B Calponin-1 (LI885M) negative P40 (BC28) negative CK8 (30oeupW06) positive INTERPRETATION: A. Right breast 1 o clock, biopsy: Invasive ductal carcinoma, grade 3/3. Positive for estrogen receptors (favorable prognostic indicator). Negative for progesterone receptors (unfavorable prognostic indicator). Positive for overexpression of NBU4wyv. B. Right breast 2 o clock, biopsy: Invasive ductal carcinoma, grade 2-3/3. Then underwent right breast modified mastectomy along with axillary lymph node dissection on 04/02/2019. Pathology: MICROSCOPIC DIAGNOSIS Right breast, modified radical mastectomy: Invasive ductal carcinoma x2. Ductal carcinoma in situ. Five out of five lymph nodes, negative for metastatic carcinoma. Hyalinized fibroadenomas x2. See cancer summary below. SJ:breann 04/05/19 INVASIVE BREAST CANCER SUMMARY: Specimen total breast (including nipple and skin). Procedure total mastectomy (including nipple and skin). Lymph node sampling axillary dissection Specimen integrity single, intact specimen Specimen laterality - right Tumor site inner quadrant Tumor size: size of largest invasive carcinoma 3.5 x 1.5 x 1.5 cm Tumor focality two foci of invasive carcinoma Size of individual foci 3.5 x 1.5 x 1.5 cm and 2 x 2 x 1 cm Macroscopic and Microscopic extent of tumor: Skin invasive carcinoma does not invade into the dermis or epidermis. Nipple DCIS does not involve nipple epidermis. Skeletal muscle Skeletal muscle is present and is free of carcinoma. Ductal carcinoma in situ (DCIS) - present Extensive intraductal component (EIC) - negative Estimated size (extent) of DCIS DCIS is present in the area of invasive carcinoma and comprise about 5% of the total tumor volume. Number of blocks with DCIS - 7 Number of blocks examined (breast tissue) - 16 Architectural patterns cribriform and comedo Nuclear grade grade 3 (high) Necrosis present, central (expansive comedo necrosis) Lobular carcinoma in situ (LCIS) not identified Histologic type of invasive carcinoma invasive ductal carcinoma (no special type) Histologic Grade (Yohan grade): Glandular/tubular differentiation - score 3 Nuclear pleomorphism - score 3 Mitotic count score 2 Overall grade - 3 (score of 8) Both tumor show similar morphologic features. Margins larger focus of invasive carcinoma is present at the closest posterior margin of the specimen. - smaller focus of invasive carcinoma is 1.7 cm away from closest superior margin. - Margins are free of ductal carcinoma in situ. Treatment effect: Response to presurgical (neoadjuvant) therapy - no known presurgical therapy. Lymph-Vascular invasion not identified Dermal lymph-vascular invasion not identified Lymph nodes: Number of sentinel lymph nodes examined - 0 Total number of lymph nodes examined (sentinel and nonsentinel) - 5 Number of lymph nodes with macrometastases, micrometastases and isolated tumor cells - 0 Distant metastasis not applicable Additional pathologic findings hyalinized fibroadenomas x2 with focal calcifications. See comment. - Dense fibrosis and lobular involution. Ancillary studies - previously performed on section of tumor ([id number] / [id number]). ER positive (15%, weak intensity) WV negative (0%) Her2 krista positive (3+) Microcalcifications present in both invasive carcinoma and non-neoplastic tissue. Clinical history - Please make reference to previous specimen ([id number]) right breast at 1 o clock and right breast at 2 o clock core biopsies with diagnosis of invasive ductal carcinoma. PATHOLOGIC STAGE: pT2(m) pN0 Mx Evidently the larger focus of cancer was down to the chest wall muscle. Other significant past medical history was asymptomatic decline in ejection fraction 1 receiving Herceptin. Serial echocardiograms--March 2016 at that time he demonstrated ejection fraction of 72%.Another echocardiogram in September 2016 demonstrated ejection fraction of 55%. In November 2016 was 50% and in May 2017 was 45% with mild global hypokinesis. managed with beta-ruth and ARB. Most recent echocardiogram from May 2018 revealed normal left ventricular size with systolic function at lower limits of normal estimated at 53%. The global longitudinal strain was -19.4% (normal) cis. Stage I diastolic dysfunction was observed. Pulmonary artery pressure was 27 mmHg. Had staging CTs scans that suggested lung metastases. Not able to biopsy. Previous therapy: 1) Taxotere/Herceptin/Perjeta. 2) Herceptin/Perjeta. Discontinued 01/2021 for progressive disease. 3) Kadcyla. 02/2021 through 07/2021. Discontinued secondary to significant worsening of neuropathy. Current therapy: 1) Enhertu. No new concerns today. Appetite:For about a week and half I have to force myself. but after that it's better. Wt. down 2# since last OV. Energy level:It's better. Denies fevers or recent illness. Mouth:denies sores Resp:denies cough or sob Cardiac:denies chest pain/palpitations GI:denies abd pain, +nausea-takes phenergan with relief, denies vomiting, moving bowels regularly-since starting prune juice the morning after treatment-drank every morning for 3-4 days after treatment :denies dysuria/hematuria Extrem:denies pain Endo:denies hot flashes Neuro:+neuropathy to fingers/toes-improved since 2021. Skin:denies rashes/lesions Heme:denies bleeding The ROS is otherwise negative. Past medical history, appointments, medications, allergies reviewed. No changes. EXAM: BP 120/65 Pulse 63 Temp 36.9 C (98.4 F) (Temporal) Wt 83.2 kg (183 lb 8 oz) BMI 34.67 kg/m APPEARANCE Well appearing, alert, in no acute distress, well-hydrated, well nourished. HEART RRR with normal S1 and S2, no murmurs LUNG clear to auscultation LYMPH NODES No cervical lymphadenopathy, No supraclavicular lymphadenopathy and No axillary lymphadenopathy. ABDOMEN bowel sounds normoactive, soft, non-tender, non-distended, without organomegaly or palpablemasses EXTREMITIES No edema NEURO Awake, alert and oriented x 3, Normal gait and No involuntary motions. SKIN Skin color, texture, turgor normal, no suspicious rashes or lesions LABS: Component Latest Ref Rng & Units 08/12/2021 09/02/2021 09/30/2021 10/21/2021 WBC 3.70 - 11.00 k/uL 5.75 4.80 6.71 4.75 RBC 3.90 - 5.20 m/uL 4.50 4.12 3.63 (L) 3.54 (L) Hemoglobin 11.5 - 15.5 g/dL 13.0 12.3 11.0 (L) 11.2 (L) Hematocrit 36.0 - 46.0 % 40.5 38.3 33.8 (L) 33.4 (L) MCV 80.0 - 100.0 fL 90.0 93.0 93.1 94.4 MCH 26.0 - 34.0 pg 28.9 29.9 30.3 31.6 MCHC 30.5 - 36.0 g/dL 32.1 32.1 32.5 33.5 RDW-CV 11.5 - 15.0 % 15.2 (H) 15.2 (H) 15.5 (H) 17.4 (H) Platelet Count 150 - 400 k/uL 233 177 262 240 MPV 9.0 - 12.7 fL 9.5 10.1 9.4 9.5 Neut% % 63.2 57.3 64.5 48.9 Abs Neut (ANC) 1.45 - 7.50 k/uL 3.63 2.75 4.33 2.32 Lymph% % 22.4 26.9 17.0 29.9 Abs Lymph 1.00 - 4.00 k/uL 1.29 1.29 1.14 1.42 Cotton% % 9.9 9.6 8.2 9.5 Abs Cotton <0.87 k/uL 0.57 0.46 0.55 0.45 Eosin% % 3.7 5.4 9.4 10.7 Abs Eosin <0.46 k/uL 0.21 0.26 0.63 (H) 0.51 (H) Baso% % 0.5 0.4 0.6 0.8 Abs Baso <0.11 k/uL 0.03 <0.03 0.04 0.04 Immature Gran % % 0.3 0.4 0.3 0.2 IMMATURE GRANS (ABS) <0.10 k/uL <0.03 <0.03 <0.03 <0.03 NRBC /100 WBC 0.0 0.0 0.0 0.0 Absolute nRBC <0.01 k/uL <0.01 <0.01 <0.01 <0.01 DTYPE Auto Auto Auto Auto CMP: Pending ASSESSMENT/PLAN: 1. Malignant neoplasm of lower-inner quadrant of right breast of female, estrogen receptor positive(HCC) - ICD9: 174.3, V86.0, ICD10: C50.311, Z17.0 (primary diagnosis) 2. Bone metastases (HCC) - ICD9: 198.5, ICD10: C79.51 3. Skin, 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) - ICD9: 198.2, ICD10: C79.[address] Rivers's previous note 09/30/21: Assessment: -Originally pT2 pN0(sln) MX ER positive (9%, very weak) WV negative HER overexpressed stage IIA invasive ductal carcinoma the right breast. -Recurrent pT2(m) pN0 (none of 5 LNs) MX ER +(15%, weak intensity)/WV negative (0%) HER2 3+ invasive ductal carcinoma the right breast while on AI (anastrozole). Posterior margin positive--more thanjust focal according to pathologist. Pectoralis fascia rem she calixto. Staging workup revealed multiple lung metastases, not biopsy proven. -Kadcyla recently discontinued secondary to sudden worsening of neuropathy. -Neuropathy is responding nicely after rotating from gabapentin to Lyrica. -Recent PET showed PD from lung metastases as well as one cutaneous metastasis. No bone metastases. -Tolerating Enhertu overall very well with exception of constipation that is manageable with prune juice. No symptoms of pneumonitis. Plan: -Continue metoprolol to 25 mg BID. -Continue Cozaar 100 mg daily. -Continue Lyrica 150 mg at HS. -Change Zometa to every 3 months (originally started for hypercalcemia). -US thyroid. -Continue Enhertu. -CT after 3 cycles. -Echocardiogram every 3 cycles. -Continue follow-up with Dr. Galeano. -Stop IBU for increase in serum Cr. - Tolerating Enhertu overall well-mild constipation/nausea. - Reviewed CBC with pt. - CMP pending. - Continue Lyrica at night. 2 capsules made pt. too tired. - Continue current medications. - Follow up with cardiology as scheduled. - ECHO due-Continue every [address] Pt[address] has this done [facility]. - Continue zometa every 3 months. - CT's after this cycle. - Proceed as scheduled for #3 Enhertu pending all labs. - Follow up as scheduled otherwise. - Pt. aware to call office with any questions/concerns. The patient indicates understanding of these issues and agrees with the plan. All documentation from previous visit of 09/30/21-Dr. Rivers was copied and pasted, documentation hasbeen reviewed and edited as necessary for today's visit. Caity Cote APRN.TERRITORY DEVELOPMENT MANAGER documented in this encounterWestern [facility]04-28-2022 History of Present illness Narrative* Rosemary Romero RN - 10/01/2021 8:59 AM EDT Assessment unchanged from Dr rivers office visit documented in this encounterWestern [facility] Hospital04-27-2022 History of Present illness Narrative* Rip Rivers, DO - 09/30/2021 10:26 AM EDT Diagnosis: 1) Metastatic recurrence of ER positive, WV negative, HER2 positive breast cancer. 2) Cardiomyopathy. HPI: The patient is a 65 year old female who discovered a lump on the lower inner portion of her right breast in the fall of 2015. She was seen at [facility] and underwent a right sided core biopsy on 02/16/2016 by interventional radiology. The tissue specimen demonstrated invasive ductal carcinoma, Sorento grade 2. ERpositive (90%, very weak) and WV negative (0%). HER-2 was quantified at 3+. She underwent a right sided lumpectomy and right axillary sentinel lymph node dissection on 02/26/2016. Final pathology demonstrated that within the lumpectomy specimen there was a 2.5 cm single focus ofinvasive carcinoma. DCIS was present comprising about 10% [...] 3) Nerlyx-stopped d/t diarrhea. Last dose of neratinib . I'm never taking that again. Seen here in early March for complaint of right breast fullness and tenderness. Diagnostic mammogram done on 03/07/2019 did not demonstrate a mass within the breast however on ultrasound there was a0.8 cm x 0.6 cm x 0.9 cm lobulated mass with an indistinct margin in the right breast at 1:00 anterior depth 6 cm in the nipple. It was lobulated and hypoechoic with internal echoes. This corresponded to the tender area. There was also a 1.2 x 0.9 x 2 cm lobulated mass with a circumscribed margin in the right breast at 2:00 anterior depth 7 cm from the nipple. It also was hypoechoic with internalechoes. And it also was tender on exam. Patient next underwent ultrasound-guided right breast needle core biopsy 2 on 03/22/2019. Pathology: MICROSCOPIC DIAGNOSIS A. Right breast at 1 o clock, core biopsy: Invasive ductal carcinoma with the following characteristics: Maximal length 10 mm Nuclear grade 3/3 Other findings ductal carcinoma in situ, nuclear 3/3 with focal comedo necrosis. B. Right breast at 2 o clock, core biopsy: Invasive ductal carcinoma with the following characteristics: Maximal length 1.2 mm Nuclear grade 2-3/3 ANTIBODY / CLONE RESULT Block A P53 (DO-7) positive, >90% Ki-67 (30-9) positive, 12% CK8 (20owbzN64) positive CK5-6 (D5 & 1684) negative Calponin-1 (XE341C) negative P40 (BC28) negative E-Cad (ECH-6) positive MORPHOMETRIC ANALYSIS ER (clone 6F11) 15%, weak intensity WV (clone 16/1E2) 0% Her-2Neu (clone CB11) 3+ Block B Calponin-1 (FH536P) negative P40 (BC28) negative CK8 (26djgiV62) positive INTERPRETATION: A. Right breast 1 o clock, biopsy: Invasive ductal carcinoma, grade 3/3. Positive for estrogen receptors (favorable prognostic indicator). Negative for progesterone receptors (unfavorable prognostic indicator). Positive for overexpression of YUK9gyb. B. Right breast 2 o clock, biopsy: Invasive ductal carcinoma, grade 2-3/3. Then underwent right breast modified mastectomy along with axillary lymph node dissection on 04/02/2019. Pathology: MICROSCOPIC DIAGNOSIS Right breast, modified radical mastectomy: Invasive ductal carcinoma x2. Ductal carcinoma in situ. Five out of five lymph nodes, negative for metastatic carcinoma. Hyalinized fibroadenomas x2. See cancer summary below. SJ:breann 04/05/19 INVASIVE BREAST CANCER SUMMARY: Specimen total breast (including nipple and skin). Procedure total mastectomy (including nipple and skin). Lymph node sampling axillary dissection Specimen integrity single, intact specimen Specimen laterality - right Tumor site inner quadrant Tumor size: size of largest invasive carcinoma 3.5 x 1.5 x 1.5 cm Tumor focality two foci of invasive carcinoma Size of individual foci 3.5 x 1.5 x 1.5 cm and 2 x 2 x 1 cm Macroscopic and Microscopic extent of tumor: Skin invasive carcinoma does not invade into the dermis or epidermis. Nipple DCIS does not involve nipple epidermis. Skeletal muscle Skeletal muscle is present and is free of carcinoma. Ductal carcinoma in situ (DCIS) - present Extensive intraductal component (EIC) - negative Estimated size (extent) of DCIS DCIS is present in the area of invasive carcinoma and comprise about 5% of the total tumor volume. Number of blocks with DCIS - 7 Number of blocks examined (breast tissue) - 16 Architectural patterns cribriform and comedo Nuclear grade grade 3 (high) Necrosis present, central (expansive comedo necrosis) Lobular carcinoma in situ (LCIS) not identified Histologic type of invasive carcinoma invasive ductal carcinoma (no special type) Histologic Grade (Sorento grade): Glandular/tubular differentiation - score 3 Nuclear pleomorphism - score 3 Mitotic count score 2 Overall grade - 3 (score of 8) Both tumor show similar morphologic features. Margins larger focus of invasive carcinoma is present at the closest posterior margin of the specimen. - smaller focus of invasive carcinoma is 1.7 cm away from closest superior margin. - Margins are free of ductal carcinoma in situ. Treatment effect: Response to presurgical (neoadjuvant) therapy - no known presurgical therapy. Lymph-Vascular invasion not identified Dermal lymph-vascular invasion not identified Lymph nodes: Number of sentinel lymph nodes examined - 0 Total number of lymph nodes examined (sentinel and nonsentinel) - 5 Number of lymph nodes with macrometastases, micrometastases and isolated tumor cells - 0 Distant metastasis not applicable Additional pathologic findings hyalinized fibroadenomas x2 with focal calcifications. See comment. - Dense fibrosis and lobular involution. Ancillary studies - previously performed on section of tumor ([id number] / [id number]). ER positive (15%, weak intensity) WV negative (0%) Her2 krista positive (3+) Microcalcifications present in both invasive carcinoma and non-neoplastic tissue. Clinical history - Please make reference to previous specimen ([id number]) right breast at 1 o clock and right breast at 2 o clock core biopsies with diagnosis of invasive ductal carcinoma. PATHOLOGIC STAGE: pT2(m) pN0 Mx Evidently the larger focus of cancer was down to the chest wall muscle. Other significant past medical history was asymptomatic decline in ejection fraction 1 receiving Herceptin. Serial echocardiograms--March 2016 at that time he demonstrated ejection fraction of 72%.Another echocardiogram in September 2016 demonstrated ejection fraction of 55%. In November 2016 was 50% and in May 2017 was 45% with mild global hypokinesis. managed with beta-ruth and ARB. Most recent echocardiogram from May 2018 revealed normal left ventricular size with systolic function at lower limits of normal estimated at 53%. The global longitudinal strain was -19.4% (normal) cis. Stage I diastolic dysfunction was observed. Pulmonary artery pressure was 27 mmHg. Had staging CTs scans that suggested lung metastases. Not able to biopsy. Previous therapy: 1) Taxotere/Herceptin/Perjeta. 2) Herceptin/Perjeta. Discontinued 01/2021 for progressive disease. 3) Kadcyla. 02/2021 through 07/2021. Discontinued secondary to significant worsening of neuropathy. Current therapy: 1) Enhertu. Interim history: Constipated right after dose. She found prune juice worked after trying several laxatives. My legs are doing great. She cut Lyrica back to one at bedtime. Has numbness from toes to heel. Hands significantly better. Has occasional cough but hasn't changed in intensity or frequency that predates Enhertu. She is notshort of breath at rest or with walking and normal activities around the home. No other symptoms tosuggest cardiomyopathy. PMH, medications and allergies personally reviewed by me today. Any changes documented in appropriate section. ROS: Constitutional: Denies episodes of fever and night sweats. Not significantly fatigued. Normal appetite. Neuro: Denies [place], vertigo, dizziness and imbalance. HEENT: No recent change in voice, vision or hearing. Resp: See above. CVS: See above. GI: Denies dysgeusia. Denies symptoms of stomatitis. Denies dysphagia and odynophagia. Denies abdominal pain. : Denies dysuria or gross hematuria. No symptoms of bladder outlet obstruction. Endo: Denies hot flashes. Denies polyuria and polydipsia. Denies heat and cold intolerance. Musculoskeletal: Denies bone, back, joint and muscular pain. Derm: Denies rash. Denies jaundice and diffuse pruritis. Heme: Denies unusual bleeding and unexplained bruising. Psych: Normal mood. PHYSICAL EXAM: Vitals: Blood pressure 103/59, pulse 66, temperature 36.9 C (98.5 F), weight 84.1 kg (185 lb 8 oz),SpO2 97 %. Well-appearing and in no acute distress. EYES: Sclerae are anicteric bilaterally. LYMPHATIC: There is no palpable cervical, supraclavicular, axillary adenopathy. RESPIRATORY: Inspiratory breath sounds are of normal intensity in all barnes. No rales, wheezes or rhonchi. CARDIOVASCULAR: Rhythm is regular. ABDOMEN: The abdomen is nondistended. Extremities: No swelling or edema. SKIN: Near resolution of subcutaneous metastasis near Xyvoid. NEUROLOGIC: smelter liner II-XII are grossly intact. Absent patellar DTRs. ASSESSMENT/PLAN: (C50.311, Z17.0) Malignant neoplasm of lower-inner quadrant of right breast of female, estrogen receptor positive (HCC) (primary encounter diagnosis) Assessment: -Originally pT2 pN0(sln) MX ER positive (9%, very weak) WV negative HER overexpressed stage IIA invasive ductal carcinoma the right breast. -Recurrent pT2(m) pN0 (none of 5 LNs) MX ER +(15%, weak intensity)/WV negative (0%) HER2 3+ invasive ductal carcinoma the right breast while on AI (anastrozole). Posterior margin positive--more thanjust focal according to pathologist. Pectoralis fascia rem she calixto. Staging workup revealed multiple lung metastases, not biopsy proven. -Kadcyla recently discontinued secondary to sudden worsening of neuropathy. -Neuropathy is responding nicely after rotating from gabapentin to Lyrica. -Recent PET showed PD from lung metastases as well as one cutaneous metastasis. No bone metastases. -Tolerating Enhertu overall very well with exception of constipation that is manageable with prune juice. No symptoms of pneumonitis. Plan: -Continue metoprolol to 25 mg BID. -Continue Cozaar 100 mg daily. -Continue Lyrica 150 mg at HS. -Change Zometa to every 3 months (originally started for hypercalcemia). -US thyroid. -Continue Enhertu. -CT after 3 cycles. -Echocardiogram every 3 cycles. -Continue follow-up with Dr. Galeano. -Stop IBU for increase in serum Cr. Portions of this documentation were copied and pasted from previous office visit notes in order to provide a cohesive continuity of the history. The note has been reviewed and edited and updated as necessary. During this patient visit I have spent approximately 20 minutes out of 25 in counseling regarding treatment options, medications and test results and coordinating care. Rip Rivers DO documented in this encounter[facility] Miscellaneous Notes* Telephone Encounter - Carla Almonte RN - 09/11/2021 11:42 AM EDT CYCLE 1/DAY 1 POST TREATMENT CALL Today's date: September 11, 2021 Treatment Regimen: Enhertu C1D1 Date: 09/10/2021 Called patient to follow-up on symptom management. Spoke with patient SYMPTOM ASSESSMENT Neuro: Headache 6/10 pain, lasted for 3 hours after treatment, Visual Changes a little blurry, Dizzinessno and Periods of confusion no CV/Resp: None GI/: Nausea Yes after treatment. Patient took promethazine and had relief. Diarrhea: no episodes but feels that she will have an episode. Patient already took an imodium to prevent diarrhea. Integument: None Activity: Patient reported no changes in energy level, energy level fair Pain: No=0 (pain 0 on a scale of 0-10). Fever: No, checked temperature and it was normal. 97.8F Chills: No Yesterday she had a 6/10 headache, nausea, and blurry vision for 3 hours after treatment yesterday.Patient took 2 tylenol (extra strength) and promethazine and symptoms resolved. Patient denies dizziness, confusion, fever, chills, or other concerning issues. Patient unsure if she had photophobia. Patient stated she is feeling great today and is planning on going shopping. Patient instructed to call our office if she has more episodes of headaches/visual changes, especially if its not alleviated after taking tylenol. Patient stated understanding of this. Any new referrals needed? No Reinforced CURRENT treatment education based on current and anticipated symptoms. Discussed port/line care and patient verbalizes understanding: Yes Patient instructed to contact office or after hours Hematology/Oncology fellow for: temperature ? 100.4; questions or concerns. Patient verbalized understanding of when to seek medical attention and after hours number protocol. Carla Almonte RN * Telephone Encounter - Delaney Cast - 09/11/2021 10:31 AM EDT Patient returned your call .Please return call to patient. * Telephone Encounter - Carla Almonte RN - 09/11/2021 8:58 AM EDT CYCLE 1/DAY 1 POST TREATMENT CALL Today's date: September 11, 2021 Treatment Regimen: Enhertu C1D1 Date: 09/10/2021 Called patient to follow-up on symptom management, no answer. Left VM requesting a call back from patient. Carla Almonte RN documented in this encounterWestern [facility]04-[facility]22 History of Present illness Narrative* Cris Ashby RD - 09/09/2021 10:57 AM EDT Nutrition Therapy Initial Assessment RECOMMENDED MALNUTRITION DIAGNOSIS: NO MALNUTRITION IDENTIFIED Reason for visit: Nutrition Counseling Nutrition Diagnosis: Increased nutrient needs (kcal, pro) related to physiological changes increasing nutrient utilization as evidenced by ca dx and treatment plan. Nutrition Intervention: Please read though introductory material provided. -Consider meal prepping prior to treatment. - aim for 5-6 small/frequent meals - incorporate lean sources of protein/plant based proteins at meals Aim for 103-129 gm protein daily. See handout for protein sources. - Stay well hydrated - sip on fluids throughout the day (64 oz). - start supplementation if needed -Strategies to manage treatment side effects: nausea and diarrhea Educational materials provided: Creative Eating During Illness and Recovery Nutrition Assessment Pt presents for nutrition counseling for breast ca with bone metastases. Pt is currently being treated with trastuzumab deruztecan. Pt denies any chewing/swallowing issues, denies current N/V/D/C. Pt denies food allergies/intolerances. Patient's symptoms are: GI: diarrhea and nausea Diet History (24hr recall): Breakfast - skips Snack - salad, egg, fruits/leftovers Lunch - skipped Snack - molasses cookies - 4 Dinner - ham and singer soup, bread, applesauce Snack - cereal Beverages - water, chocolate milk Alcohol- no Vitamins/Supplements - MVI-M, Mary C Vit C, sleeping pills New chemo - nausea, early satiety After chemo - nausea 2-3 days Sports drinks, protein drinks - Ensure once per week, mac and cheese Diverticulitis - no recent flare ups (4-5 years ago) Discussed mitigating side effects of chemotherapy including nausea and diarrhea management. Anthropometrics: Height: Last 1 Encounter Ht Readings: Date: Ht: 04/10/2021 154.9 cm (5' 1) Current weight: Last 10 Encounter Wt Readings: Date: Wt: 09/02/2021 86.6 kg (191 lb) 08/12/2021 84.8 kg (187 lb) 08/12/2021 84.8 kg (187 lb) 07/24/2021 87.5 kg (193 lb) 06/12/2021 87.1 kg (192 lb) 06/11/2021 87.1 kg (192 lb) 05/21/2021 87.5 kg (193 lb) 04/27/2021 88 kg (194 lb) 04/10/2021 89.4 kg (197 lb) 04/09/2021 89.4 kg (197 lb) Estimated body mass index is 36.09 kg/m as calculated from the following: Height as of 04/10/21: 154.9 cm (5' 1). Weight as of 09/02/21: 86.6 kg (191 lb). Resting Metabolic Rate: 1342 Weight Loss:no weight loss Estimated Needs: Dosing Weight: 86.6 kg Estimated kilocalorie needs: 7112-5013 kilocalories determined by 25-30 kcal/kg Estimated protein needs: 103-129 grams determined by 1.2-1.5 g/kg Dosing weight Estimated fluid needs: 2100 milliliters based on 1 mL per kcal Readiness to Learn Cognitive ability: Alert and oriented Motivation to learn: Interested Family support: High - Very involved in pt care Instruction provided to: Patient and Spouse Patient learns best by: Multiple Methods Factors affecting learning: None Physical limitations affecting learning: None NUTRITION FOCUSED PHYSICAL EXAM: Unable to perform exam due to potential for patient discomfort (physical/emotional), will re-attempt during reassessment. Potential Signs of Inflammation: chronic condition Allergies: Neratinib, Amoxil [Amoxicillin], Aspirin, Cephalosporins, Ciprocinonide, Codeine, Demerol [Meperidine (Pf)], Erythromycin, Latex, [place]ully [Hydrocodone- Acetaminophen], Nubain [Nalbuphine Hcl], Percocet [Oxycodone-Acetaminophen], Prednisone, [place], and Sulfa (Sulfonamide Antibiotics) Medications: Current Outpatient Medications Medication Sig Dispense Refill pregabalin (LYRICA) 150 mg capsule Take 1 capsule by mouth twice daily for 90 days. 180 capsule 0 ibuprofen (MOTRIN) 600 mg tablet Take 1 tablet by mouth every 6 hours as needed for pain. FOR PAIN.20 tablet 0 promethazine (PHENERGAN) 25 mg tablet Take 1 tablet by mouth every 6 hours as needed. FOR NAUSEA 30tablet 2 ergocalciferol 50,000 unit capsule (VITAMIN D2, DRISDOL) Take one capsule twice a week for 8 weeks.16 capsule 0 metoprolol tartrate, short acting, (LOPRESSOR) 25 mg tablet Take 1 tablet by mouth twice daily. 180tablet 3 lidocaine-prilocaine (EMLA) 2.5-2.5 % cream Apply to affected area as needed. 15 g 3 losartan (COZAAR) 50 mg tablet Take 2 tablets by mouth once daily. ascorbic acid/bioflavonoids (MARY C ORAL) Take 500 mg by mouth once daily. Loperamide HCl (IMODIUM A-D) 2 mg tab Take 2 mg by mouth as needed. multivitamin tablet Take 1 tablet by mouth once daily. diphenhydrAMINE (BENADRYL ALLERGY) 25 mg tablet Take 25 mg by mouth twice daily as needed. Current Facility-Administered Medications Medication Dose Route Frequency Provider Last Rate Last Admin perflutren lipid microspheres 1.3 mL in NaCl (PF) 0.9% 10 mL injection (DEFINITY) INTRAVENOUS DIRECTED PRN Rip Rivers, DO sodium chloride 0.9 % (flush) 10 mL (BD POSIFLUSH) 10 mL INTRAVENOUS DIRECTED PRN Rip Rivers, DO perflutren lipid microspheres 1.3 mL in NaCl (PF) 0.9% 10 mL injection (DEFINITY) INTRAVENOUS DIRECTED PRN Caity Cote APRN.ALESSANDRO sodium chloride 0.9 % (flush) 10 mL (BD POSIFLUSH) 10 mL INTRAVENOUS DIRECTED PRN Caity Cote APRN.ALESSANDRO perflutren lipid microspheres 1.3 mL in NaCl (PF) 0.9% 10 mL injection (DEFINITY) INTRAVENOUS DIRECTED PRLulú Cote APRN.ALESSANDRO sodium chloride 0.9 % (flush) 10 mL (BD POSIFLUSH) 10 mL INTRAVENOUS DIRECTED PRLulú Cote APRN.ALESSANDRO perflutren lipid microspheres 1.3 mL in NaCl (PF) 0.9% 10 mL injection (DEFINITY) INTRAVENOUS DIRECTED SHIRA Cote APRN.ALESSANDRO sodium chloride 0.9 % (flush) 10 mL (BD POSIFLUSH) 10 mL INTRAVENOUS DIRECTED SHIRA Cote APRN.TERRITORY DEVELOPMENT MANAGER (date of last encounter ): Nutrition Monitoring & Evaluation: PO intake Supplement tolerance Wt status Biochemical Markers Skin integrity Plan of care Patient met goal(s): Yes Need for Follow up: Will follow up only as needed Referred/Supervised by: Dr. Garay Thank you for allowing me to participate in the care of this pt. MNT Billing Type: Initial Assess/15 min 3 units Signed by: Cris Ashby RD,DAVID documented in this encounterWestern [facility]04-05-2022 Miscellaneous Notes* Telephone Encounter - DIO Leach - 09/08/2021 11:58 AM EDT SOCIAL WORK FOLLOW UP NOTE: [facility] Date of service: September 08, 2021 Renate Christiansen is being seen for a follow up social work visit. Today's visit includes: patient and Rx Outreach TOPICS ADDRESSED: Finances; Lyrica Rx from [employer] only for 60 capsules, which would cost patient same amount as 90 capsules. SW had new Rx sent to [facility]reach for 180 capsules (90 days) for patient to get most medication for her money. Patient notified this was sent and will call [facility] with payment information. No other needs identified. PLAN: Assist with financial support applications and Continue follow up as needed F/U APPOINTMENT: PRDIO Schmidt documented in this encounterWestern [facility]04-04-2022 History of Present illness Narrative* DIO Leach - 09/07/2021 10:52 AM EDT SOCIAL WORK FOLLOW UP NOTE: [facility]ER [facility]ENTER Date of service: September 07, 2021 Renate Christiansen is being seen for a follow up social work visit. Today's visit includes: patient TOPICS ADDRESSED: Finances; SW met with patient on this day to complete application for Lyrica assistance. SW faxed to program on this day. No other needs identified. PLAN: Assist with financial support applications and Continue follow up as needed F/U APPOINTMENT: PRDIO Schmidt documented in this encounterWestern [facility]04-04-2022 History of Present illness Narrative* Jazmin Jacobsen RDMS - 09/07/2021 10:00 AM EDT Radiology Service Progress Note PATIENT NAME: Renate Christiansen DATE OF SERVICE: September 07, 2021 TIME: 10:42 AM PATIENT IDENTITY VERIFICATION COMPLETED USING TWO (2) IDENTIFIERS: Name and Date of confirmedby patient verbally. FALL SCREENING: Has the patient had 2 falls in the last year or 1 fall with injury or currently using an Ambulatory Assistive Device (Walker, Cane, Wheelchair, Crutches, etc.)? No PATIENT GENDER DATA: Female. status: : No status: N/A PATIENT RELEVANT IMPLANT DATA REVIEWED: Not Applicable RADIOLOGY DEPARTMENT: Ultrasound PERIPHERAL IV DATA: Not applicable SIGNED BY: Jazmin Jacobsen RDMS RVT September 07, 2021 10:42 AM documented in this encounterWestern [facility]04-01-2022 Miscellaneous Notes* Telephone Encounter - Kayla Elliott - 09/04/2021 3:58 PM EDT Rec'd email from department. Spoke with patient today. Patient is active with Medicare A and B as well as [facility] A[employer] Supplement and is not expected to have any financial responsibility for treatment inHEMA [facility]. There are no open foundations for dx. Patient stated understanding and advised that she does not need any assistance. documented in this encounterWestern [facility]04-01-2022 Nurse Note* Carla Almonte RN - 09/04/2021 9:20 AM EDT This visit was completed via telephone. Carla Almonte RN * Carla Almonte RN - 09/04/2021 9:17 AM EDT ONCOLOGY PATIENT EDUCATION NOTE TOPIC: Chemotherapy, Medications: Enhertu READINESS TO LEARN: COGNITIVE ABILITY: Alert and oriented MOTIVATION TO LEARN: Interested FAMILY SUPPORT: High - Very involved in pt care INSTRUCTION PROVIDED TO: Patient INSTRUCTION PROVIDED BY: Nurse Coordinator PATIENT LEARNS BEST BY: Multiple Methods FACTORS AFFECTING LEARNING: None PHYSICAL LIMITATIONS AFFECTING LEARNING: None LEARNING RESPONSE DIAGNOSIS: Metastatic recurrence of ER positive, WV negative, HER2 positive breast cancer METHOD OF INSTRUCTION: Individual instruction Written instruction - handouts Verbal instruction PATIENT/FAMILY RESPONSE: Verbalizes understanding of: CHEMOTHERAPY-Regimen, toxicity and side effects FOLLOW UP PLAN: Patient instructed to call with any further issues Recommend - Recommend continued instruction and follow up as directed Follow up phone call. Contact information given. SUPPLEMENTAL MATERIAL: Written material was provided at this visit with the following information: - Chemotherapy education was provided by a pharmacist NO - Side effect management information was provided/discussed including but not limited to: abdominaldiscomfort, anemia, appetite changes, arthralgia, bowel habit changes, diet, electrolyte disturbances, fatigue, hair loss, infection, mouth hygiene, mucositis, myalgia, nausea/vomitting, neuropathy, neutropenia, peripheral neuropathy, rash, shortness of breath, skin changes, taste changes, thrombocytopenia YES - Provided important phone numbers and contacts during and after hours. YES - Provided information on symptoms that require immediate assistance. YES - Provided Chemotherapy when to call handouts YES - Preventing infection. YES - Treatment schedule and confirmation of appointment times. YES - Available support groups. YES - The importance of contraception during the course of chemotherapy YES - Neutropenic fever protocol discussed with patient, which included the importance of reporting anyfever of 100.4F (38.0C) or greater to the healthcare team as noted on the provided wallet card and/or magnet. YES Time Spent: 30 minutes REFERRAL (RECOMMENDATION): Social Work Carla Almonte RN documented in this encounterWestern [facility]03-31-2022 Miscellaneous Notes* Telephone Encounter - Williams Scott Pss - 09/03/2021 12:26 PM EDT Schedule updated. * Telephone Encounter - Carla Almonte RN - 09/03/2021 10:06 AM EDT Patient informed of Dr. Rivers's response, stated understanding. Patient stated to have schedulers add appointment and she will check for treatment date/time. See Dr. Rivers's note, okay to cancel tomorrows treatment and delay a week. Patient also requesting a spa manager/esthetician appointment. Please schedule on 09/09/21 at 11:00 am. Thank you. Carla Almonte RN * Telephone Encounter - Rip Rivers DO - 09/03/2021 9:19 AM EDT Order filed and yes okay to delay a week. That would also give her more time from her most recent Zometa dose. Rip Rivers DO * Telephone Encounter - Carla Almonte RN - 09/03/2021 9:15 AM EDT Patient had questions regarding diet and stated she would like to speak to someone regarding a moredetailed diet plan. Patient would like a nutrition consult. Order filed. Patient stated she broke a tooth last night. Patient stated she has had fillings in this tooth in the past and she feels that this tooth might need to be pulled this time. Patient stated she is goingto call her dentist today to see if she can get an appointment soon. Patient is asking if treatmentcan be delayed a week. Carla Almonte RN documented [facility] Miscellaneous Notes* Telephone Encounter - DIO Leach - 09/03/2021 9:15 AM EDT PSYCHOSOCIAL ASSESSMENT Date of Service: September 03, 2021 Renate Christiansen is a 65 year old female being seen for initial social work assessment. Diagnosis: metastatic breast Recurrence Primary Oncologist: Dr. Rivers Radiation Oncologist: DANN Goals of Care: Palliative care Today's visit includes: self/patient Family History of Cancer: Other SUPPORT NETWORK: Marital status: Parent(s): Mother is and Father is living Child/Children: Yes. How many? 2 children personal caregiver arrangements needed: No Siblings: 4 sister(s) and 3 brother(s); 1 sister passed Grandchild(giuseppe): > 5 Home Health Provider: No Community Services: No Ruby Identified: Yes Muslim/Spirituality: Uatsdin Are these practices or beliefs that may affect or influence treatment? No EMPLOYMENT/FINANCIAL/HEALTH INSURANCE: Employment: Retired Income source: Social Security Insurance: Medicare with co-insurance Prescription coverage: Yes Is the patient appropriate for referral to [facility] COBRA Assistance program? No Financial Distress: No : No FOOD INSECURITY Within the past year, have you worried about how you would buy or obtain food? No LIVING ARRANGEMENTS: Type: House- independent ranch Resides with: Family Spouse FUNCTIONAL STATUS: Cognitive limitations: none Physical limitations: Cane and walker Language barrier: No Hearing Impaired: No Speech Impaired: No Visual Impairments: Yes, glasses Special considerations/accommodations needed: No HEALTH LITERACY: 1. Do you have difficulty understanding medical instructions or other written materials you receivefrom you doctor or pharmacy? No 2. Do have difficulty filling out medical forms by yourself? No The following interventions were put into place: Use of plain language active listening with patient and family Use of concrete and specific phrases and avoid medical jargon Patient given opportunity to ask questions MEDICATION ADHERENCE: Within the past 2 weeks, have you had difficulty remembering to take your medicine? No Within the past 2 weeks, did you ever miss taking your medications for reasons other than forgetting? No The following interventions were put into place: Community resources provided MENTAL HEALTH HISTORY: No History of combat/trauma: No Substance Use and Treatment History: denied History of Abuse: No Issues with: Sleep:Yes; takes sleeping medication because of throbbing feet Eating:No Exercising: No Stress Management: No ADVANCE DIRECTIVES/LEGAL DOCUMENTS: Living Will: Yes Scanned into EPIC: Yes Health Care Durable Power of Filter Press Pumper: Yes Scanned into EPIC: Yes Guardianship: NA Scanned into EPIC:NA Reasons Advanced Directives were not Addressed: NA COPING STATUS: Coping Strengths: supportive relationships with immediate family, with friends and with extended family spirituality successful managing past crises hopefulness self advocate strong problem-solving skills ability to plan able to follow direction consistently over time able to communicate effectively Current affect/mood: appropriate History of Loss: Yes, mother, sister Adjustment to diagnosis: reflecting understanding, responding appropriately and accepting help BARRIERS/CARE CHALLENGES: None Are barriers/care challenges identified likely to have an impact on the patient's quality of life during treatment? NA INTERVENTIONS/REFERRALS TO BE PROVIDED: Monitor patient response to treatment Communicate pertinent medical/psychosocial information to Cancer Center team Provide emotional support to patient/family Provided education on distress and screening process Continue follow up as needed Resources and Referrals: Internal: NA External: N/A CLINICAL IMPRESSION: SW spoke with patient on this day to monitor MH symptoms and to assess patient needs. Patient reports strong support system and lives with her spouse in a single-story home. Patient denies history ofMH/AoD issues and states she is eating well at this time. Patient has some issues falling asleep due to foot pain, but she soaks her feet, which helps. She also takes sleeping medication at this time, but will stop taking this once she starts treatment. Patient has Advance Directives and they are scanned into her chart. SW oriented patient to services and discussed local resources. Psychosocial Risk Criteria If positive for one or more of the following risk criteria, follow up every 30 days Age: NA Mental Health: NA Practical Needs: N/A PLAN: Follow-up regarding [place] assistance Follow up appointment with SW in: DIO Velasco documented in this encounterWestern [facility] Miscellaneous Notes* Telephone Encounter - Carla Almonte RN - 09/02/2021 3:43 PM EDT Thank you. * Telephone Encounter - Williams Scott Pss - 09/02/2021 3:29 PM EDT US was scheduled earlier today. Patient will be notified when here on Tuesday for treatment. * Telephone Encounter - Carla Almonte RN - 09/02/2021 3:22 PM EDT Spoke to patient and informed her of the Small hypermetabolic left thyroid lobe lesion. Further evaluation with thyroid ultrasound is recommended from the PET scan reading. Patient aware Dr. Rivers ordered an USto further evaluate this and our office will contact her to schedule. Patient stated understanding of this and had no further questions. PSS- please contact patient to schedule US thyroid. Thank you. Carla Almonte RN * Telephone Encounter - Carla Almonte RN - 09/02/2021 12:12 PM EDT Called patient, no answer, left a VM requesting a call back from patient. Carla Almonte RN documented in this encounterWestern [facility]03-30-[facility]22 History of Present illness Narrative* Rip Rivers DO - 09/02/2021 10:14 AM EDT Diagnosis: 1) Metastatic recurrence of ER positive, WV negative, HER2 positive breast cancer. 2) Cardiomyopathy. HPI: The patient is a 65 year old female who discovered a lump on the lower inner portion of her right breast in the fall of 2015. She was seen at [facility] and underwent a right sided core biopsy on 02/16/2016 by interventional radiology. The tissue specimen demonstrated invasive ductal carcinoma, Yohan grade 2. ERpositive (90%, very weak) and WV negative (0%). HER-2 was quantified at 3+. She underwent a right sided lumpectomy and right axillary sentinel lymph node dissection on 02/26/2016. Final pathology demonstrated that within the lumpectomy specimen there was a 2.5 cm single focus ofinvasive carcinoma. DCIS was present comprising about 10% [...] 3) Nerlyx-stopped d/t diarrhea. Last dose of neratinib . I'm never taking that again. Seen here in early March for complaint of right breast fullness and tenderness. Diagnostic mammogram done on 03/07/2019 did not demonstrate a mass within the breast however on ultrasound there was a0.8 cm x 0.6 cm x 0.9 cm lobulated mass with an indistinct margin in the right breast at 1:00 anterior depth 6 cm in the nipple. It was lobulated and hypoechoic with internal echoes. This corresponded to the tender area. There was also a 1.2 x 0.9 x 2 cm lobulated mass with a circumscribed margin in the right breast at 2:00 anterior depth 7 cm from the nipple. It also was hypoechoic with internalechoes. And it also was tender on exam. Patient next underwent ultrasound-guided right breast needle core biopsy 2 on 03/22/2019. Pathology: MICROSCOPIC DIAGNOSIS A. Right breast at 1 o clock, core biopsy: Invasive ductal carcinoma with the following characteristics: Maximal length 10 mm Nuclear grade 3/3 Other findings ductal carcinoma in situ, nuclear 3/3 with focal comedo necrosis. B. Right breast at 2 o clock, core biopsy: Invasive ductal carcinoma with the following characteristics: Maximal length 1.2 mm Nuclear grade 2-3/3 ANTIBODY / CLONE RESULT Block A P53 (DO-7) positive, >90% Ki-67 (30-9) positive, 12% CK8 ([id number]) positive CK5-6 (D5 & 1684) negative Calponin-1 (RK913O) negative P40 (BC28) negative E-Cad (ECH-6) positive MORPHOMETRIC ANALYSIS ER (clone 6F11) 15%, weak intensity WV (clone 16/1E2) 0% Her-2Neu (clone CB11) 3+ Block B Calponin-1 (KH240L) negative P40 (BC28) negative CK8 (60zmcnD87) positive INTERPRETATION: A. Right breast 1 o clock, biopsy: Invasive ductal carcinoma, grade 3/3. Positive for estrogen receptors (favorable prognostic indicator). Negative for progesterone receptors (unfavorable prognostic indicator). Positive for overexpression of GBQ4ieb. B. Right breast 2 o clock, biopsy: Invasive ductal carcinoma, grade 2-3/3. Then underwent right breast modified mastectomy along with axillary lymph node dissection on 04/02/2019. Pathology: MICROSCOPIC DIAGNOSIS Right breast, modified radical mastectomy: Invasive ductal carcinoma x2. Ductal carcinoma in situ. Five out of five lymph nodes, negative for metastatic carcinoma. Hyalinized fibroadenomas x2. See cancer summary below. SJ:breann 04/05/19 INVASIVE BREAST CANCER SUMMARY: Specimen total breast (including nipple and skin). Procedure total mastectomy (including nipple and skin). Lymph node sampling axillary dissection Specimen integrity single, intact specimen Specimen laterality - right Tumor site inner quadrant Tumor size: size of largest invasive carcinoma 3.5 x 1.5 x 1.5 cm Tumor focality two foci of invasive carcinoma Size of individual foci 3.5 x 1.5 x 1.5 cm and 2 x 2 x 1 cm Macroscopic and Microscopic extent of tumor: Skin invasive carcinoma does not invade into the dermis or epidermis. Nipple DCIS does not involve nipple epidermis. Skeletal muscle Skeletal muscle is present and is free of carcinoma. Ductal carcinoma in situ (DCIS) - present Extensive intraductal component (EIC) - negative Estimated size (extent) of DCIS DCIS is present in the area of invasive carcinoma and comprise about 5% of the total tumor volume. Number of blocks with DCIS - 7 Number of blocks examined (breast tissue) - 16 Architectural patterns cribriform and comedo Nuclear grade grade 3 (high) Necrosis present, central (expansive comedo necrosis) Lobular carcinoma in situ (LCIS) not identified Histologic type of invasive carcinoma invasive ductal carcinoma (no special type) Histologic Grade (Sorento grade): Glandular/tubular differentiation - score 3 Nuclear pleomorphism - score 3 Mitotic count score 2 Overall grade - 3 (score of 8) Both tumor show similar morphologic features. Margins larger focus of invasive carcinoma is present at the closest posterior margin of the specimen. - smaller focus of invasive carcinoma is 1.7 cm away from closest superior margin. - Margins are free of ductal carcinoma in situ. Treatment effect: Response to presurgical (neoadjuvant) therapy - no known presurgical therapy. Lymph-Vascular invasion not identified Dermal lymph-vascular invasion not identified Lymph nodes: Number of sentinel lymph nodes examined - 0 Total number of lymph nodes examined (sentinel and nonsentinel) - 5 Number of lymph nodes with macrometastases, micrometastases and isolated tumor cells - 0 Distant metastasis not applicable Additional pathologic findings hyalinized fibroadenomas x2 with focal calcifications. See comment. - Dense fibrosis and lobular involution. Ancillary studies - previously performed on section of tumor ([id number] / [id number]). ER positive (15%, weak intensity) WV negative (0%) Her2 krista positive (3+) Microcalcifications present in both invasive carcinoma and non-neoplastic tissue. Clinical history - Please make reference to previous specimen ([id number]) right breast at 1 o clock and right breast at 2 o clock core biopsies with diagnosis of invasive ductal carcinoma. PATHOLOGIC STAGE: pT2(m) pN0 Mx Evidently the larger focus of cancer was down to the chest wall muscle. Other significant past medical history was asymptomatic decline in ejection fraction 1 receiving Herceptin. Serial echocardiograms--March 2016 at that time he demonstrated ejection fraction of 72%.Another echocardiogram in September 2016 demonstrated ejection fraction of 55%. In November 2016 was 50% and in May 2017 was 45% with mild global hypokinesis. managed with beta-ruth and ARB. Most recent echocardiogram from May 2018 revealed normal left ventricular size with systolic function at lower limits of normal estimated at 53%. The global longitudinal strain was -19.4% (normal) cis. Stage I diastolic dysfunction was observed. Pulmonary artery pressure was 27 mmHg. Had staging CTs scans that suggested lung metastases. Not able to biopsy. Previous therapy: 1) Taxotere/Herceptin/Perjeta. 2) Herceptin/Perjeta. Discontinued 01/2021 for progressive disease. 3) Kadcyla. 02/2021 through 07/2021. Discontinued secondary to significant worsening of neuropathy. Current therapy: Interim history: Lyrica has significantly helped the symptoms from her sensory neuropathy. She still has some burning and throbbing pain of the dorsum of the toes going laterally into the right foot especially at nighttime but this has improved. Mild symptoms in the left foot. She is able to get her rings back on but not yet wearing her wrist watch because her wrists are still very sensitive and numb with pressure. There is been no other subjective change. No chronic cough. She is not short of breath at rest or with walking and normal activities around the home. No other symptoms to suggest cardiomyopathy. The small subcutaneous metastasis in the lower sternal area subjectively unchanged. PMH, medications and allergies personally reviewed by me today. Any changes documented in appropriate section. ROS: Constitutional: Denies episodes of fever and night sweats. Not significantly fatigued. Normal appetite. Neuro: Denies [place], vertigo, dizziness and imbalance. HEENT: No recent change in voice, vision or hearing. Resp: See above. CVS: See above. GI: Denies dysgeusia. Denies symptoms of stomatitis. Denies dysphagia and odynophagia. Denies abdominal pain. : Denies dysuria or gross hematuria. No symptoms of bladder outlet obstruction. Endo: Denies hot flashes. Denies polyuria and polydipsia. Denies heat and cold intolerance. Musculoskeletal: Denies bone, back, joint and muscular pain. Derm: Denies rash. Denies jaundice and diffuse pruritis. Heme: Denies unusual bleeding and unexplained bruising. Psych: Normal mood. PHYSICAL EXAM: Vitals: Blood pressure 120/73, pulse 61, temperature 36.9 C (98.4 F), weight 86.6 kg (191 lb), RoH826 %. Well-appearing and in no acute distress. EYES: Sclerae are anicteric bilaterally. LYMPHATIC: There is no palpable cervical, supraclavicular, axillary adenopathy. RESPIRATORY: Inspiratory breath sounds are of normal intensity in all barnes. No rales, wheezes or rhonchi. Expiratory phase is normal. CARDIOVASCULAR: Rhythm is regular. ABDOMEN: The abdomen is nondistended. Extremities: No swelling or edema. SKIN: No jaundice or rash. No petechiae. NEUROLOGIC: smelter liner II-XII are grossly intact. Absent patellar DTRs. MUSCULOSKELETAL: Palpable chest wall nodule just to the right of lower sternum is stable. ASSESSMENT/PLAN: (C50.311, Z17.0) Malignant neoplasm of lower-inner quadrant of right breast of female, estrogen receptor positive (HCC) (primary encounter diagnosis) Assessment: -Originally pT2 pN0(sln) MX ER positive (9%, very weak) WV negative HER overexpressed stage IIA invasive ductal carcinoma the right breast. -Recurrent pT2(m) pN0 (none of 5 LNs) MX ER +(15%, weak intensity)/WV negative (0%) HER2 3+ invasive ductal carcinoma the right breast while on AI (anastrozole). Posterior margin positive--more thanjust focal according to pathologist. Pectoralis fascia rem she calixto. Staging workup revealed multiple lung metastases, not biopsy proven. -Kadcyla recently discontinued secondary to sudden worsening of neuropathy. -Neuropathy is responding nicely after rotating from gabapentin to Lyrica. -Reviewed PET scan results with her in detail. Lung metastases as well as 1 cutaneous metastasis. No bone metastases. -We discussed therapy options at this point. I discussed both Enhertu and tucatinib/capecitabine/trastusumab. After discussion of potential side effects, patient opted for Enhertu due to the higher potential for diarrhea with the other regimen. She had very bad diarrhea with neratinib in the past. -I discussed the rationale, logistics, potential risks (including but not limited to pneumonitis and ), benefits and alternatives, as well as the personnel involved in the administration of Enhertu. I answered her questions in detail and she verbalized understanding and agreed with the recommended therapy. Please see the electronic consent document for details of doses and schedule. -Advised her to contact us immediately should she develop any shortness of breath, dry cough or chest pain. Plan: -Continue metoprolol to 25 mg BID. -Continue Cozaar 100 mg daily. -Continue Lyrica 150 mg twice daily. -Change Zometa to every 3 months (originally started for hypercalcemia). -US thyroid. -Begin Enhertu this week or next. -CT after 3 cycles. -Echocardiogram every 3 cycles. -Continue follow-up with Dr. Galeano. Portions of this documentation were copied and pasted from previous office visit notes in order to provide a cohesive continuity of the history. The note has been reviewed and edited and updated as necessary. During this patient visit I have spent approximately 20 minutes out of 30 in counseling regarding treatment options, medications and test results and coordinating care. Rip Rivers DO documented in this encounterWestern [facility]03-[facility] History of Present illness Narrative* Shae Marisol, RT(R) - 08/25/2021 9:30 AM EDT RADIOLOGY SERVICE PROGRESS NOTE SERVICE DATE: 08/25/2021 SERVICE TIME: 8:35 AM PATIENT IDENTITY VERIFICATION COMPLETED USING TWO (2) STANDARD IDENTIFIERS: Name and Date of confirmed by patient verbally FALL SCREENING: Has the patient had 2 falls in the last year or 1 fall with injury or currently using an Ambulatory Assistive Device (Walker, Cane, Wheelchair, Crutches, etc.)? Yes, Patient High Riskfor Falls What interventions were put in place to prevent falls during this visit? [place] Risk Wristband Applied PATIENT GENDER DATA: .female ALLERGIES: Reviewed and unchanged MEDICATIONS REVIEWED: No PATIENT RELEVANT IMPLANT DATA REVIEWED: Not Applicable CREATININE: Creatinine Date Value Ref Range Status 08/12/2021 1.08 (H) 0.58 - 0.96 mg/dL Final 07/20/2021 1.07 (H) 0.58 - 0.96 mg/dL Final 07/02/2021 0.90 0.58 - 0.96 mg/dL Final Estimated Glomerular Filtration Rate Date Value Ref Range Status 08/12/2021 56 (L) >=60 mL/min/1.73m Final Comment: Estimated Glomerular Filtration Rate (eGFR) is calculated using the 2020 CKD-EPI creatinine equation. This equation utilizes serum creatinine, sex, and age as parameters. The creatinine assay has traceable calibration to isotope dilution- mass spectrometry. Refer to KDIGO guidelines for clinical interpretation. In patients with unstable renal function, e.g. those with acute kidney injury, the eGFRmay not accurately reflect actual GFR. eGFR- Date Value Ref Range Status 07/20/2021 >60 Final P.O.C.T. RESULTS: N/A August 25, [address] PERFORMED: No IV SITE: Ambulatory: NM only - direct IV injection in the Left antecubital site POST EXAM PIV STATUS: Not applicable PROCEDURE TYPE: NM INJECT: PET/CT BODY SCAN. 9.1 mCi F18 FDG. No other medications given.. ADMINISTRATION TIME: 823 PATIENT DISCHARGED TO: Ambulatory patient, left DC department area. A Diagnostic radioactive procedure has taken place, with no further precautions necessary other than routine body substance precautions. More information regarding radiation safety can be found usingthis link: [email or web address] SIGNATURE: RT Fannie(R) PATIENT NAME: Renate Christiansen DATE: August 25, 2021 TIME: 8:35 AM PAGER/CONTACT #: documented in this encounterWestern [facility] HospitalEvaluation [facility]* Diagnosis Malignant neoplasm of lower-inner quadrant of right breast of female, estrogen receptor positive (HCC) Bone metastases (HCC) Secondary malignant neoplasm of bone and bone marrow [facility] Diagnosis Malignant neoplasm of lower-inner quadrant of right breast of female, estrogen receptor positive (HCC)- Primary Malignant neoplasm metastatic to both lungs (HCC) Skin, 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 Thyroid nodule Nontoxic uninodular goiter [facility] Malignant neoplasm of lower-inner quadrant of right breast of female, estrogen receptor positive (HCC) Malignant neoplasm metastatic to lung, unspecified laterality (HCC) [facility] Diagnosis Malignant neoplasm of lower-inner quadrant of right breast of female, estrogen receptor positive (HCC)- Primary Malignant neoplasm metastatic to both lungs (HCC) [facility] Diagnosis Malignant neoplasm of lower-inner quadrant of right female breast, unspecified estrogen receptor status (HCC)- Primary [facility] Diagnosis Thyroid nodule Nontoxic uninodular goiter [facility] Diagnosis Malignant neoplasm of lower-inner quadrant of right breast of female, estrogen receptor positive (HCC) Malignant neoplasm metastatic to both lungs (HCC) [facility] Diagnosis Malignant neoplasm metastatic to both lungs (HCC)- Primary Bone metastases (HCC) Secondary malignant neoplasm of bone and bone marrow Malignant neoplasm metastatic to lung, unspecified laterality (HCC) Malignant neoplasm of lower-inner quadrant of right breast of female, estrogen receptor positive (HCC) [facility] Malignant neoplasm metastatic to both lungs (HCC)- Primary Malignant neoplasm of lower-inner quadrant of right breast of female, estrogen receptor positive (HCC) Malignant neoplasm metastatic to lung, unspecified laterality (HCC) [facility] Diagnosis Malignant neoplasm of lower-inner quadrant of right breast of female, estrogen receptor positive (HCC)- Primary Bone metastases (HCC) 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, 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 [facility] Diagnosis Bone metastases (HCC)- Primary Secondary malignant neoplasm of bone and bone marrow Malignant neoplasm metastatic to lung, unspecified laterality (HCC) Malignant neoplasm of lower-inner quadrant of right breast of female, estrogen receptor positive (HCC) [facility] Diagnosis Malignant neoplasm of lower-inner quadrant of right breast of female, estrogen receptor positive (HCC)- Primary Malignant neoplasm metastatic to lung, unspecified laterality (HCC) [facility] Diagnosis Malignant neoplasm of lower-inner quadrant of right breast of female, estrogen receptor positive (HCC)- Primary Bone metastases (HCC) 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, 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, unspecified Malignant neoplasm of right breast in female, estrogen receptor positive, unspecified site of breast (HCC) [facility] Bone metastases (HCC)- Primary Secondary malignant neoplasm of bone and bone marrow Malignant neoplasm metastatic to lung, unspecified laterality (HCC) Malignant neoplasm of lower-inner quadrant of right breast of female, estrogen receptor positive (HCC) [facility] Diagnosis Onset Date Resolution Status Non-ischemic cardiomyopathy resolved [facility] Work Phone: Evaluation note* Diagnosis Malignant neoplasm metastatic to lung, unspecified laterality (HCC) Bone metastases (HCC) Secondary malignant neoplasm of bone and bone marrow Malignant neoplasm of lower-inner quadrant of right breast of female, estrogen receptor positive (HCC) [facility] Diagnosis Malignant neoplasm of lower-inner quadrant of right breast of female, estrogen receptor positive (HCC) Bone metastases (HCC) 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, 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, unspecified Malignant neoplasm of right breast in female, estrogen receptor positive, unspecified site of breast (HCC) [facility] Bone metastases (HCC)- Primary 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 Diarrhea [facility] Diagnosis Malignant neoplasm of lower-inner quadrant of right breast of female, estrogen receptor positive (HCC)- Primary Skin, 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 Bone metastases (HCC) Secondary malignant neoplasm of bone and bone marrow Malignant neoplasm metastatic to both lungs (HCC) [facility] Bone metastases (HCC)- Primary Secondary malignant neoplasm of bone and bone marrow Malignant neoplasm metastatic to lung, unspecified laterality (HCC) Malignant neoplasm of lower-inner quadrant of right breast of female, estrogen receptor positive (HCC) [facility] Diagnosis Malignant neoplasm metastatic to both lungs (HCC)- Primary Malignant neoplasm metastatic to lung, unspecified laterality (HCC) Bone metastases (HCC) Secondary malignant neoplasm of bone and bone marrow Malignant neoplasm of lower-inner quadrant of right breast of female, estrogen receptor positive (HCC) [facility] Diagnosis Malignant neoplasm of lower-inner quadrant of right breast of female, estrogen receptor positive (HCC)- Primary Malignant neoplasm metastatic to both lungs (HCC) Bone metastases (HCC) 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, 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 [facility] Diagnosis Malignant neoplasm metastatic to lung, unspecified laterality (HCC) Bone metastases (HCC) Secondary malignant neoplasm of bone and bone marrow Malignant neoplasm of lower-inner quadrant of right breast of female, estrogen receptor positive (HCC) [facility] Diagnosis Bone metastases (HCC)- Primary Secondary malignant neoplasm of bone and bone marrow Malignant neoplasm metastatic to lung, unspecified laterality (HCC) Malignant neoplasm of lower-inner quadrant of right breast of female, estrogen receptor positive (HCC) [facility] Diagnosis Malignant neoplasm of lower-inner quadrant of right breast of female, estrogen receptor positive (HCC)- Primary Bone metastases (HCC) Secondary malignant neoplasm of bone and bone marrow Malignant neoplasm metastatic to both lungs (HCC) Skin, 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 [facility] Malignant neoplasm metastatic to both lungs (HCC)- Primary Malignant neoplasm metastatic to lung, unspecified laterality (HCC) Bone metastases (HCC) Secondary malignant neoplasm of bone and bone marrow Malignant neoplasm of lower-inner quadrant of right breast of female, estrogen receptor positive (HCC) [facility] Diagnosis Malignant neoplasm metastatic to both lungs (HCC)- Primary Malignant neoplasm of right breast in female, estrogen receptor positive, unspecified site of breast (HCC) Skin, 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, unspecified [facility] Malignant neoplasm of lower-inner quadrant of right breast of female, estrogen receptor positive (HCC) Bone metastases (HCC) Secondary malignant neoplasm of bone and bone marrow Malignant neoplasm metastatic to both lungs (HCC) Skin, 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 [facility] Diagnosis Bone metastases (HCC)- Primary Secondary malignant neoplasm of bone and bone marrow Malignant neoplasm metastatic to lung, unspecified laterality (HCC) Malignant neoplasm of lower-inner quadrant of right breast of female, estrogen receptor positive (HCC) [facility] Diagnosis Skin, 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)- Primary Secondary malignant neoplasm of skin Malignant neoplasm metastatic to lung, unspecified laterality (HCC) Bone metastases (HCC) Secondary malignant neoplasm of bone and bone marrow Malignant neoplasm of lower-inner quadrant of right breast of female, estrogen receptor positive (HCC) [facility] Diagnosis Malignant neoplasm of lower-inner quadrant of right breast of female, estrogen receptor positive (HCC)- Primary Bone metastases (HCC) 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 [facility] Bone metastases (HCC)- Primary Secondary malignant neoplasm of bone and bone marrow Malignant neoplasm metastatic to lung, unspecified laterality (HCC) Malignant neoplasm of lower-inner quadrant of right breast of female, estrogen receptor positive (HCC) Chemotherapy induced diarrhea Diarrhea [facility] Diagnosis Malignant neoplasm of lower-inner quadrant of right breast of female, estrogen receptor positive (HCC) Bone metastases (HCC) 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 [facility] Diagnosis Malignant neoplasm metastatic to lung, unspecified laterality (HCC) Bone metastases (HCC) Secondary malignant neoplasm of bone and bone marrow Malignant neoplasm of lower-inner quadrant of right breast of female, estrogen receptor positive (HCC) [facility] Diagnosis Malignant neoplasm of lower-inner quadrant of right breast of female, estrogen receptor positive (HCC)- Primary Bone metastases (HCC) 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 [facility] Bone metastases (HCC)- Primary Secondary malignant neoplasm of bone and bone marrow Malignant neoplasm metastatic to lung, unspecified laterality (HCC) Malignant neoplasm of lower-inner quadrant of right breast of female, estrogen receptor positive (HCC) [facility] Diagnosis Malignant neoplasm of lower-inner quadrant of right breast of female, estrogen receptor positive (HCC) Bone metastases (HCC) 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 [facility] Diagnosis Malignant neoplasm metastatic to lung, unspecified laterality (HCC)- Primary Bone metastases (HCC) Secondary malignant neoplasm of bone and bone marrow Malignant neoplasm of lower-inner quadrant of right breast of female, estrogen receptor positive (HCC) [facility] Diagnosis Malignant neoplasm of lower-inner quadrant of right breast of female, estrogen receptor positive (HCC)- Primary Malignant neoplasm metastatic to lung, unspecified laterality (HCC) Bone metastases (HCC) Secondary malignant neoplasm of bone and bone marrow [facility] Diagnosis Malignant neoplasm of lower-inner quadrant of right breast of female, estrogen receptor positive (HCC)- Primary Bone metastases (HCC) 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 Encounter for monitoring cardiotoxic drug therapy Encounter for therapeutic drug monitoring [facility] ([facility])- Primary Secondary malignant neoplasm of bone and bone marrow Malignant neoplasm metastatic to lung, unspecified laterality (HCC) Malignant neoplasm of lower-inner quadrant of right breast of female, estrogen receptor positive (HCC) [facility] Malignant neoplasm metastatic to lung, unspecified laterality (HCC)- Primary [facility] Diagnosis Onset Date Resolution Status Breast cancer, right breast chronic [facility] Work Phone: Evaluation note* Diagnosis Malignant neoplasm metastatic to lung, unspecified laterality (HCC)- Primary Bone metastases (HCC) Secondary malignant neoplasm of bone and bone marrow Malignant neoplasm of lower-inner quadrant of right breast of female, estrogen receptor positive (HCC) Chemotherapy induced diarrhea Diarrhea [facility] Malignant neoplasm of lower-inner quadrant of right breast of female, estrogen receptor positive (HCC)- Primary Bone metastases (HCC) 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, 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 Malignant neoplasm metastatic to both lungs (HCC) [facility] Bone metastases (HCC)- Primary Secondary malignant neoplasm of bone and bone marrow Malignant neoplasm metastatic to lung, unspecified laterality (HCC) Malignant neoplasm of lower-inner quadrant of right breast of female, estrogen receptor positive (HCC) [facility] Diagnosis Malignant neoplasm of lower-inner quadrant of right breast of female, estrogen receptor positive (HCC)- Primary Bone metastases (HCC) 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, 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 Malignant neoplasm metastatic to both lungs (HCC) Encounter for monitoring cardiotoxic drug therapy Encounter for therapeutic drug monitoring [facility] Skin, 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)- Primary Secondary malignant neoplasm of skin Bone metastases (HCC) Secondary malignant neoplasm of bone and bone marrow Malignant neoplasm metastatic to lung, unspecified laterality (HCC) Malignant neoplasm of lower-inner quadrant of right breast of female, estrogen receptor positive (HCC) [facility] Skin, 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)- Primary Secondary malignant neoplasm of skin Malignant neoplasm metastatic to lung, unspecified laterality (HCC) Bone metastases (HCC) Secondary malignant neoplasm of bone and bone marrow Malignant neoplasm of lower-inner quadrant of right breast of female, estrogen receptor positive (HCC) [facility] Diagnosis Malignant neoplasm of lower-inner quadrant of right breast of female, estrogen receptor positive (HCC)- Primary Bone metastases (HCC) Secondary malignant neoplasm of bone and bone marrow Malignant neoplasm metastatic to both lungs (HCC) Encounter for screening mammogram for malignant neoplasm of breast Other screening mammogram 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, unspecified [facility] Bone metastases (HCC)- Primary Secondary malignant neoplasm of bone and bone marrow Malignant neoplasm metastatic to lung, unspecified laterality (HCC) Malignant neoplasm of lower-inner quadrant of right breast of female, estrogen receptor positive (HCC) [facility] Diagnosis Bone metastases (HCC)- Primary Secondary malignant neoplasm of bone and bone marrow Malignant neoplasm metastatic to lung, unspecified laterality (HCC) Malignant neoplasm of lower-inner quadrant of right breast of female, estrogen receptor positive (HCC) Chemotherapy induced diarrhea Diarrhea [facility] Diagnosis Malignant neoplasm of lower-inner quadrant of right breast of female, estrogen receptor positive (HCC)- Primary Bone metastases (HCC) Secondary malignant neoplasm of bone and bone marrow Malignant neoplasm metastatic to both lungs (HCC) Chemotherapy-induced neuropathy (HCC) Polyneuropathy due to drugs [facility] Diagnosis Malignant neoplasm of lower-inner quadrant of right breast of female, estrogen receptor positive (HCC)- Primary Bone metastases (HCC) Secondary malignant neoplasm of bone and bone marrow Malignant neoplasm metastatic to both lungs (HCC) [facility] Diagnosis Malignant neoplasm of lower-inner quadrant of right breast of female, estrogen receptor positive (HCC)- Primary Bone metastases (HCC) Secondary malignant neoplasm of bone and bone marrow Malignant neoplasm metastatic to both lungs (HCC) 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, unspecified [facility] Diagnosis Malignant neoplasm metastatic to lung, unspecified laterality (HCC) Malignant neoplasm metastatic to bone (HCC) Secondary malignant neoplasm of bone and bone marrow Malignant neoplasm of lower-inner quadrant of right breast of female, estrogen receptor positive (HCC) [facility] Diagnosis Malignant neoplasm of lower-inner quadrant of right breast of female, estrogen receptor positive (HCC)- Primary Malignant neoplasm metastatic to bone (HCC) Secondary malignant neoplasm of bone and bone marrow Malignant neoplasm metastatic to both lungs (HCC) 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 due to drugs [facility] Diagnosis Malignant neoplasm metastatic to bone (HCC)- Primary Secondary malignant neoplasm of bone and bone marrow Malignant neoplasm metastatic to lung, unspecified laterality (HCC) Malignant neoplasm of lower-inner quadrant of right breast of female, estrogen receptor positive (HCC) [facility] Diagnosis Malignant neoplasm of lower-inner quadrant of right breast of female, estrogen receptor positive (HCC) Malignant neoplasm metastatic to lung, unspecified laterality (HCC) Lung nodules Other nonspecific abnormal finding of lung field Encounter for monitoring cardiotoxic drug therapy Encounter for therapeutic drug monitoring [facility] Diagnosis Malignant neoplasm metastatic to lung, unspecified laterality (HCC)- Primary Malignant neoplasm metastatic to bone (HCC) Secondary malignant neoplasm of bone and bone marrow Malignant neoplasm of lower-inner quadrant of right breast of female, estrogen receptor positive (HCC) [facility] Diagnosis Malignant neoplasm metastatic to lung, unspecified laterality (HCC) Malignant neoplasm metastatic to bone (HCC) Secondary malignant neoplasm of bone and bone marrow Malignant neoplasm of lower-inner quadrant of right breast of female, estrogen receptor positive (HCC) [facility] Diagnosis Malignant neoplasm of lower-inner quadrant of right breast of female, estrogen receptor positive (HCC)- Primary Malignant neoplasm metastatic to bone (HCC) Secondary malignant neoplasm of bone and bone marrow Malignant neoplasm metastatic to both lungs (HCC) 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, unspecified [facility] Diagnosis Malignant neoplasm of lower-inner quadrant of right breast of female, estrogen receptor positive (HCC)- Primary Malignant neoplasm metastatic to bone (HCC) Secondary malignant neoplasm of bone and bone marrow Malignant neoplasm metastatic to lung, unspecified laterality (HCC) 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, unspecified [facility] Diagnosis Malignant neoplasm of lower-inner quadrant of right breast of female, estrogen receptor positive (HCC) Malignant neoplasm metastatic to bone (HCC) Secondary malignant neoplasm of bone and bone marrow Malignant neoplasm metastatic to lung, unspecified laterality (HCC) 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, unspecified [facility] Diagnosis Malignant neoplasm of lower-inner quadrant of right breast of female, estrogen receptor positive (HCC)- Primary 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) Malignant neoplasm metastatic to bone (HCC) Secondary malignant neoplasm of bone and bone marrow Malignant neoplasm metastatic to both lungs (HCC) 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, unspecified [facility] Diagnosis Malignant neoplasm metastatic to bone (HCC)- Primary Secondary malignant neoplasm of bone and bone marrow Malignant neoplasm metastatic to lung, unspecified laterality (HCC) Malignant neoplasm of lower-inner quadrant of right breast of female, estrogen receptor positive (HCC) [facility] Diagnosis Malignant neoplasm of lower-inner quadrant of right breast of female, estrogen receptor positive (HCC)- Primary 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) Malignant neoplasm metastatic to bone (HCC) Secondary malignant neoplasm of bone and bone marrow Malignant neoplasm metastatic to both lungs (HCC) [facility] Diagnosis Abnormal mammogram- Primary Abnormal mammogram, unspecified [facility] Diagnosis Malignant neoplasm of lower-inner quadrant of right breast of female, estrogen receptor positive (HCC)- Primary 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) Malignant neoplasm metastatic to both lungs (HCC) Encounter for monitoring cardiotoxic drug therapy Encounter for therapeutic drug monitoring Platelets decreased (HCC) Thrombocytopenia, unspecified [facility] Diagnosis Malignant neoplasm of lower-inner quadrant of right breast of female, estrogen receptor positive (HCC) Malignant neoplasm metastatic to bone (HCC) Secondary malignant neoplasm of bone and bone marrow Malignant neoplasm metastatic to lung, unspecified laterality (HCC) 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, unspecified [facility] Diagnosis Malignant neoplasm of lower-inner quadrant of right breast of female, estrogen receptor positive (HCC)- Primary 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) Malignant neoplasm metastatic to bone (HCC) Secondary malignant neoplasm of bone and bone marrow Malignant neoplasm metastatic to both lungs (HCC) Platelets decreased (HCC) Thrombocytopenia, unspecified 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, 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 [facility] Diagnosis Malignant neoplasm metastatic to bone (HCC)- Primary Secondary malignant neoplasm of bone and bone marrow Malignant neoplasm metastatic to lung, unspecified laterality (HCC) Malignant neoplasm of lower-inner quadrant of right breast of female, estrogen receptor positive (HCC) Chemotherapy induced diarrhea Diarrhea [facility] Diagnosis Malignant neoplasm of lower-inner quadrant of right breast of female, estrogen receptor positive (HCC) Malignant neoplasm metastatic to bone (HCC) Secondary malignant neoplasm of bone and bone marrow Malignant neoplasm metastatic to lung, unspecified laterality (HCC) 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, unspecified [facility] Diagnosis Onset Date Resolution Status Non-ischemic cardiomyopathy acute Breast cancer, right breast chronic [facility] Work Phone: Evaluation note* Diagnosis Malignant neoplasm metastatic to left lung (HCC)- Primary [facility] Diagnosis Malignant neoplasm metastatic to left lung (HCC)- Primary [facility] Diagnosis Onset Date Resolution Status Non-ischemic cardiomyopathy acute Breast cancer, right breast chronic Acute dyspnea acute Breast cancer metastasized to lung acute Elevated d-dimer acute [facility] Work Phone: Evaluation note* Diagnosis Malignant neoplasm metastatic to bone (HCC)- Primary Secondary malignant neoplasm of bone and bone marrow [facility] Diagnosis Malignant neoplasm metastatic to left lung (HCC)- Primary [facility] Diagnosis Malignant neoplasm of lower-inner quadrant of right breast of female, estrogen receptor positive (HCC) Malignant neoplasm metastatic to bone (HCC) Secondary malignant neoplasm of bone and bone marrow Malignant neoplasm metastatic to lung, unspecified laterality (HCC) 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, unspecified [facility] Diagnosis Malignant neoplasm metastatic to bone (HCC)- Primary Secondary malignant neoplasm of bone and bone marrow Malignant neoplasm of lower-inner quadrant of right breast of female, estrogen receptor positive (HCC) Malignant neoplasm metastatic to lung, unspecified laterality (HCC) 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, unspecified [facility] Diagnosis Malignant neoplasm metastatic to bone (HCC)- Primary Secondary malignant neoplasm of bone and bone marrow Malignant neoplasm metastatic to lung, unspecified laterality (HCC) Malignant neoplasm of lower-inner quadrant of right breast of female, estrogen receptor positive (HCC) [facility] Diagnosis Malignant neoplasm of lower-inner quadrant of right breast of female, estrogen receptor positive (HCC)- Primary Malignant neoplasm metastatic to bone (HCC) Secondary malignant neoplasm of bone and bone marrow Malignant neoplasm metastatic to lung, unspecified laterality (HCC) [facility] Diagnosis Malignant neoplasm metastatic to bone (HCC) Secondary malignant neoplasm of bone and bone [facility] Abnormal [facility]ogram Abnormal mammogram, unspecified [facility] Diagnosis Malignant neoplasm of lower-inner quadrant of right breast of female, estrogen receptor positive (HCC) Malignant neoplasm metastatic to bone (HCC) Secondary malignant neoplasm of bone and bone marrow Malignant neoplasm metastatic to both lungs (HCC) [facility] Encounter for screening mammogram for malignant neoplasm of breast Other screening mammogram [facility] Diagnosis Multiple thyroid nodules Nontoxic multinodular goiter [facility] Diagnosis Chronic left sacroiliac pain Disorders of sacrum [facility] Diagnosis Malignant neoplasm of lower-inner quadrant of right breast of female, estrogen receptor positive (HCC) 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) Malignant neoplasm metastatic to both lungs (HCC) [facility] Diagnosis Malignant neoplasm of lower-inner quadrant of right breast of female, estrogen receptor positive (HCC) Bone metastases Secondary malignant neoplasm of bone and bone marrow Malignant neoplasm metastatic to both lungs (HCC) [facility] Diagnosis Malignant neoplasm of lower-inner quadrant of right breast of female, estrogen receptor positive (HCC) Bone metastases Secondary malignant neoplasm of bone and bone marrow [facility] Diagnosis Malignant neoplasm metastatic to bone (HCC)- Primary Secondary malignant neoplasm of bone and bone marrow Malignant neoplasm of lower-inner quadrant of right breast of female, estrogen receptor positive (HCC) Malignant neoplasm metastatic to lung, unspecified laterality (HCC) 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, unspecified [facility] Malignant neoplasm of lower-inner quadrant of right breast of female, estrogen receptor positive (HCC)- Primary Malignant neoplasm metastatic to both lungs (HCC) Encounter for monitoring cardiotoxic drug therapy Encounter for therapeutic drug monitoring Malignant neoplasm metastatic to bone (HCC) 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, unspecified [facility] Diagnosis Malignant neoplasm metastatic to bone (HCC)- Primary Secondary malignant neoplasm of bone and bone marrow Malignant neoplasm metastatic to lung, unspecified laterality (HCC) Malignant neoplasm of lower-inner quadrant of right breast of female, estrogen receptor positive (HCC) [facility] Onset Date Resolution Status Acute dyspnea acute Non-ischemic cardiomyopathy acute Breast cancer, right breast chronic [facility] Work Phone: Evaluation note* Diagnosis Malignant neoplasm of lower-inner quadrant of right breast of female, estrogen receptor positive (HCC) (HCC) Malignant neoplasm metastatic to bone (HCC) Secondary malignant neoplasm of bone and bone marrow Malignant neoplasm metastatic to lung, unspecified laterality (HCC) Chemotherapy-induced cardiomyopathy (HCC) (HCC) Secondary cardiomyopathy, unspecified [facility] Diagnosis Malignant neoplasm of lower-inner quadrant of right breast of female, estrogen receptor positive (HCC) (HCC)- Primary Malignant neoplasm metastatic to both lungs (HCC) Malignant neoplasm metastatic to bone (HCC) Secondary malignant neoplasm of bone and bone marrow [facility] Diagnosis Malignant neoplasm metastatic to bone (HCC)- Primary Secondary malignant neoplasm of bone and bone marrow Malignant neoplasm metastatic to lung, unspecified laterality (HCC) Malignant neoplasm of lower-inner quadrant of right breast of female, estrogen receptor positive (HCC) (HCC) [facility] Diagnosis Malignant neoplasm metastatic to left lung (HCC) [facility] Diagnosis Malignant neoplasm of lower-inner quadrant of right breast of female, estrogen receptor positive (HCC) Malignant neoplasm metastatic to bone (HCC) Secondary malignant neoplasm of bone and bone marrow Malignant neoplasm metastatic to lung, unspecified laterality (HCC) 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, unspecified [facility] Diagnosis Malignant neoplasm of lower-inner quadrant of right breast of female, estrogen receptor positive (HCC)- Primary Malignant neoplasm metastatic to bone (HCC) Secondary malignant neoplasm of bone and bone marrow Malignant neoplasm metastatic to lung, unspecified laterality (HCC) Malignant neoplasm metastatic to both lungs (HCC) [facility] Diagnosis Radiotherapy follow-up- Primary Radiotherapy follow-up examination Malignant neoplasm metastatic to left lung (HCC) [facility] Diagnosis Malignant neoplasm metastatic to bone (HCC)- Primary Secondary malignant neoplasm of bone and bone marrow Malignant neoplasm metastatic to lung, unspecified laterality (HCC) Malignant neoplasm of lower-inner quadrant of right breast of female, estrogen receptor positive (HCC) [facility] Diagnosis Malignant neoplasm of lower-inner quadrant of right breast of female, estrogen receptor positive (HCC) Malignant neoplasm metastatic to bone (HCC) Secondary malignant neoplasm of bone and bone marrow Malignant neoplasm metastatic to lung, unspecified laterality (HCC) Malignant neoplasm metastatic to both lungs (HCC) [facility] Diagnosis Secondary malignant neoplasm of right lung (HCC)- Primary Secondary malignant neoplasm of lung [facility] Diagnosis Malignant neoplasm metastatic to bone (HCC)- Primary Secondary malignant neoplasm of bone and bone marrow Malignant neoplasm of lower-inner quadrant of right breast of female, estrogen receptor positive (HCC) Malignant neoplasm metastatic to lung, unspecified laterality (HCC) 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, unspecified [facility] Diagnosis Malignant neoplasm of lower-inner quadrant of right breast of female, estrogen receptor positive (HCC)- Primary Malignant neoplasm metastatic to both lungs (HCC) HER2-positive carcinoma of breast (HCC) RUQ pain Abdominal pain, right upper quadrant 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, 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 [facility] Diagnosis Malignant neoplasm of lower-inner quadrant of right breast of female, estrogen receptor positive (HCC)- Primary [facility] Diagnosis Secondary malignant neoplasm of right lung (HCC)- Primary Secondary malignant neoplasm of lung [facility] Diagnosis RUQ pain Abdominal pain, right upper quadrant [facility] Diagnosis Malignant neoplasm of lower-inner quadrant of right breast of female, estrogen receptor positive (HCC) Malignant neoplasm metastatic to bone (HCC) Secondary malignant neoplasm of bone and bone marrow Malignant neoplasm metastatic to lung, unspecified laterality (HCC) 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, unspecified [facility] Diagnosis Encounter for monitoring cardiotoxic drug therapy- Primary Encounter for therapeutic drug monitoring Malignant neoplasm of lower-inner quadrant of right breast of female, estrogen receptor positive (HCC) Malignant neoplasm metastatic to right lung (HCC) Malignant neoplasm metastatic to bone (HCC) 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, 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 Multiple thyroid nodules Nontoxic multinodular goiter [facility] Diagnosis HER2-positive carcinoma of breast (HCC)- Primary Malignant neoplasm metastatic to bone (HCC) Secondary malignant neoplasm of bone and bone marrow Malignant neoplasm metastatic to lung, unspecified laterality (HCC) Malignant neoplasm of lower-inner quadrant of right breast of female, estrogen receptor positive (HCC) Chemotherapy induced diarrhea Diarrhea [facility] Diagnosis Secondary malignant neoplasm of right lung (HCC)- Primary Secondary malignant neoplasm of lung [facility] Diagnosis Secondary malignant neoplasm of right lung (HCC)- Primary Secondary malignant neoplasm of lung [facility] Diagnosis Malignant neoplasm of lower-inner quadrant of right breast of female, estrogen receptor positive (HCC) Malignant neoplasm metastatic to bone (HCC) 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 [facility] Diagnosis Malignant neoplasm of lower-inner quadrant of right breast of female, estrogen receptor positive (HCC) Malignant neoplasm metastatic to bone (HCC) Secondary malignant neoplasm of bone and bone marrow Malignant neoplasm metastatic to lung, unspecified laterality (HCC) 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, unspecified [facility] Diagnosis Malignant neoplasm of lower-inner quadrant of right breast of female, estrogen receptor positive (HCC)- Primary HER2-positive carcinoma of breast (HCC) Malignant neoplasm metastatic to right lung (HCC) 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, 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 [facility] Diagnosis Malignant neoplasm of lower-inner quadrant of right breast of female, estrogen receptor positive (HCC)- Primary Malignant neoplasm metastatic to lung, unspecified laterality (HCC) Malignant neoplasm metastatic to bone (HCC) 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) [facility] Diagnosis Malignant neoplasm of lower-inner quadrant of right breast of female, estrogen receptor positive (HCC)- Primary [facility] Diagnosis Radiotherapy follow-up- Primary Radiotherapy follow-up examination Secondary malignant neoplasm of right lung (HCC) Secondary malignant neoplasm of lung [facility] Diagnosis Malignant neoplasm of lower-inner quadrant of right breast of female, estrogen receptor positive (HCC)- Primary Malignant neoplasm metastatic to bone (HCC) Secondary malignant neoplasm of bone and bone marrow Malignant neoplasm metastatic to lung, unspecified laterality (HCC) 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, unspecified [facility] Diagnosis Malignant neoplasm of lower-inner quadrant of right breast of female, estrogen receptor positive (HCC)- Primary Malignant neoplasm metastatic to lung, unspecified laterality (HCC) Malignant neoplasm metastatic to bone (HCC) 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) [facility] Diagnosis Malignant neoplasm of lower-inner quadrant of right breast of female, estrogen receptor positive (HCC)- Primary Malignant neoplasm metastatic to bone (HCC) 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, unspecified HER2-positive carcinoma of breast (HCC) [facility] Diagnosis Malignant neoplasm of lower-inner quadrant of right breast of female, estrogen receptor positive (HCC) Malignant neoplasm metastatic to lung, unspecified laterality (HCC) Malignant neoplasm metastatic to bone (HCC) 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) [facility] Malignant neoplasm of prostate (HCC)- Primary Malignant neoplasm of prostate Malignant neoplasm of lower-inner quadrant of right breast of female, estrogen receptor positive (HCC) Malignant neoplasm metastatic to lung, unspecified laterality (HCC) Malignant neoplasm metastatic to bone (HCC) 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) [facility] Diagnosis Malignant neoplasm of lower-inner quadrant of right breast of female, estrogen receptor positive (HCC)- Primary Malignant neoplasm metastatic to lung, unspecified laterality (HCC) Malignant neoplasm metastatic to bone (HCC) 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, 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 Chemotherapy induced diarrhea Diarrhea Encounter for monitoring cardiotoxic drug therapy Encounter for therapeutic drug monitoring [facility] Diagnosis Malignant neoplasm metastatic to both lungs (CMS/HCC)- Primary Malignant neoplasm metastatic to bone (CMS/HCC) 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) Platelets decreased (CMS/HCC) Unspecified thrombocytopenia Primary hypertension Unspecified essential hypertension Heart disease Unspecified heart disease documented [facility] Work Phone: Evaluation note* Diagnosis Malignant neoplasm metastatic to bone (HCC)- Primary Secondary malignant neoplasm of bone and bone marrow Malignant neoplasm of lower-inner quadrant of right breast of female, estrogen receptor positive (HCC) Malignant neoplasm metastatic to lung, unspecified laterality (HCC) HER2-positive carcinoma of breast (HCC) [facility] Diagnosis Malignant neoplasm of lower-inner quadrant of right breast of female, estrogen receptor positive (HCC)- Primary [facility] Diagnosis Malignant neoplasm of lower-inner quadrant of right breast of female, estrogen receptor positive (HCC) Malignant neoplasm metastatic to lung, unspecified laterality (HCC) Malignant neoplasm metastatic to bone (HCC) 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, 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 [facility] Diagnosis Malignant neoplasm of lower-inner quadrant of right breast of female, estrogen receptor positive (HCC)- Primary Malignant neoplasm metastatic to lung, unspecified laterality (HCC) Malignant neoplasm metastatic to bone (HCC) 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, 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 [facility] Diagnosis Malignant neoplasm of lower-inner quadrant of right breast of female, estrogen receptor positive (HCC)- Primary Malignant neoplasm metastatic to lung, unspecified laterality (HCC) Malignant neoplasm metastatic to bone (HCC) 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, 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 [facility] Diagnosis Malignant neoplasm metastatic to bone (HCC)- Primary Secondary malignant neoplasm of bone and bone marrow [facility] Diagnosis Malignant neoplasm of lower-inner quadrant of right breast of female, estrogen receptor positive (HCC) Malignant neoplasm metastatic to lung, unspecified laterality (HCC) Malignant neoplasm metastatic to bone (HCC) 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, 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 [facility] Diagnosis Malignant neoplasm of lower-inner quadrant of right breast of female, estrogen receptor positive (HCC)- Primary [facility] Diagnosis Malignant neoplasm of lower-inner quadrant of right breast of female, estrogen receptor positive (HCC) Malignant neoplasm metastatic to lung, unspecified laterality (HCC) Malignant neoplasm metastatic to bone (HCC) 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) Malignant neoplasm metastatic to both lungs (HCC) [facility] Diagnosis Malignant neoplasm of lower-inner quadrant of right breast of female, estrogen receptor positive (HCC)- Primary Orthopnea Interstitial pulmonary disease (HCC) Postinflammatory pulmonary fibrosis Malignant neoplasm of lower-inner quadrant of right breast of female, estrogen receptor positive (HCC) Orthopnea Interstitial pulmonary disease (HCC) Postinflammatory pulmonary fibrosis [facility] Diagnosis Malignant neoplasm of lower-inner quadrant of right breast of female, estrogen receptor positive (HCC) Orthopnea Interstitial pulmonary disease (HCC) Postinflammatory pulmonary fibrosis [facility] Diagnosis Malignant neoplasm of lower-inner quadrant of right breast of female, estrogen receptor positive (HCC) Orthopnea [facility] Diagnosis Encounter for monitoring cardiotoxic drug therapy- Primary Encounter for therapeutic drug monitoring 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, unspecified [facility] Diagnosis Chemotherapy induced cardiomyopathy (HCC)- Primary Secondary cardiomyopathy, unspecified Encounter for monitoring cardiotoxic drug therapy Encounter for therapeutic drug monitoring [facility] Diagnosis HER2-positive carcinoma of breast (HCC)- Primary Malignant neoplasm of lower-inner quadrant of right breast of female, estrogen receptor positive (HCC) Malignant neoplasm metastatic to lung, unspecified laterality (HCC) Malignant neoplasm metastatic to bone (HCC) Secondary malignant neoplasm of bone and bone marrow Malignant neoplasm metastatic to both lungs (HCC) Chemotherapy induced diarrhea Diarrhea [facility] Diagnosis Malignant neoplasm of lower-inner quadrant of right breast of female, estrogen receptor positive (HCC)- Primary [facility] Diagnosis Malignant neoplasm of lower-inner quadrant of right breast of female, estrogen receptor positive (HCC)- Primary [facility] Diagnosis Malignant neoplasm of lower-inner quadrant of right breast of female, estrogen receptor positive (HCC)- Primary Malignant neoplasm metastatic to lung, unspecified laterality (HCC) Malignant neoplasm metastatic to bone (HCC) 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) Malignant neoplasm metastatic to both lungs (HCC) [facility] Diagnosis Malignant neoplasm of lower-inner quadrant of right breast of female, estrogen receptor positive (HCC)- Primary Malignant neoplasm metastatic to lung, unspecified laterality (HCC) Malignant neoplasm metastatic to bone (HCC) 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 Diarrhea [facility] Diagnosis Malignant neoplasm of lower-inner quadrant of right breast of female, estrogen receptor positive (HCC)- Primary Malignant neoplasm metastatic to lung, unspecified laterality (HCC) Malignant neoplasm metastatic to bone (HCC) 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) [facility] Diagnosis Malignant neoplasm of lower-inner quadrant of right breast of female, estrogen receptor positive (HCC)- Primary Malignant neoplasm metastatic to lung, unspecified laterality (HCC) Malignant neoplasm metastatic to bone (HCC) 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) Malignant neoplasm metastatic to both lungs (HCC) [facility] Diagnosis Malignant neoplasm of lower-inner quadrant of right breast of female, estrogen receptor positive (HCC)- Primary Malignant neoplasm metastatic to lung, unspecified laterality (HCC) Malignant neoplasm metastatic to bone (HCC) 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) [facility] Diagnosis Malignant neoplasm of lower-inner quadrant of right breast of female, estrogen receptor positive (HCC)- Primary Malignant neoplasm metastatic to lung, unspecified laterality (HCC) Malignant neoplasm metastatic to bone (HCC) 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) [facility] Diagnosis Malignant neoplasm of lower-inner quadrant of right breast of female, estrogen receptor positive (HCC)- Primary [facility] Diagnosis Malignant neoplasm of lower-inner quadrant of right breast of female, estrogen receptor positive (HCC) Malignant neoplasm metastatic to lung, unspecified laterality (HCC) Malignant neoplasm metastatic to bone (HCC) 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) Malignant neoplasm metastatic to both lungs (HCC) [facility] Diagnosis Malignant neoplasm of lower-inner quadrant of right breast of female, estrogen receptor positive (HCC)- Primary Malignant neoplasm metastatic to bone (HCC) Secondary malignant neoplasm of bone and bone marrow Malignant neoplasm metastatic to both lungs (HCC) 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, unspecified [facility] Diagnosis Malignant neoplasm of lower-inner quadrant of right breast of female, estrogen receptor positive (HCC)- Primary Malignant neoplasm metastatic to lung, unspecified laterality (HCC) Malignant neoplasm metastatic to bone (HCC) 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) [facility] Malignant neoplasm of lower-inner quadrant of right breast of female, estrogen receptor positive (HCC)- Primary Malignant neoplasm metastatic to lung, unspecified laterality (HCC) Malignant neoplasm metastatic to bone (HCC) 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) Malignant neoplasm metastatic to both lungs (HCC) [facility] Malignant neoplasm of lower-inner quadrant of right breast of female, estrogen receptor positive (HCC)- Primary Malignant neoplasm metastatic to lung, unspecified laterality (HCC) Malignant neoplasm metastatic to bone (HCC) 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 Diarrhea [facility] Diagnosis Malignant neoplasm of lower-inner quadrant of right breast of female, estrogen receptor positive (HCC)- Primary Malignant neoplasm metastatic to bone (HCC) Secondary malignant neoplasm of bone and bone marrow Malignant neoplasm metastatic to both lungs (HCC) [facility] Diagnosis Malignant neoplasm of lower-inner quadrant of right breast of female, estrogen receptor positive (HCC)- Primary [facility] Diagnosis Malignant neoplasm of lower-inner quadrant of right breast of female, estrogen receptor positive (HCC)- Primary [facility] Diagnosis Malignant neoplasm of lower-inner quadrant of right breast of female, estrogen receptor positive (HCC) Malignant neoplasm metastatic to bone (HCC) Secondary malignant neoplasm of bone and bone marrow Malignant neoplasm metastatic to both lungs (HCC) [facility] Diagnosis Malignant neoplasm of lower-inner quadrant of right breast of female, estrogen receptor positive (HCC)- Primary Malignant neoplasm metastatic to lung, unspecified laterality (HCC) Malignant neoplasm metastatic to bone (HCC) Secondary malignant neoplasm of bone and bone marrow Drug rash Dermatitis due to drugs and medicines taken internally 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, 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 [facility] Diagnosis Malignant neoplasm of lower-inner quadrant of right breast of female, estrogen receptor positive (HCC) Malignant neoplasm metastatic to lung, unspecified laterality (HCC) Malignant neoplasm metastatic to bone (HCC) 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) Malignant neoplasm metastatic to both lungs (HCC) [facility] Diagnosis Malignant neoplasm of lower-inner quadrant of right breast of female, estrogen receptor positive (HCC)- Primary Malignant neoplasm metastatic to lung, unspecified laterality (HCC) Malignant neoplasm metastatic to bone (HCC) 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) [facility] Diagnosis Malignant neoplasm of lower-inner quadrant of right breast of female, estrogen receptor positive (HCC)- Primary Malignant neoplasm metastatic to bone (HCC) Secondary malignant neoplasm of bone and bone marrow Malignant neoplasm metastatic to both lungs (HCC) 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, 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 Drug rash Dermatitis due to drugs and medicines taken internally Abnormal weight loss Loss of weight History of thyroid nodule Personal history of other endocrine, metabolic, and immunity disorders [facility] Diagnosis Malignant neoplasm of lower-inner quadrant of right breast of female, estrogen receptor positive (HCC)- Primary Malignant neoplasm metastatic to lung, unspecified laterality (HCC) Malignant neoplasm metastatic to bone (HCC) 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) [facility] Diagnosis Malignant neoplasm of lower-inner quadrant of right breast of female, estrogen receptor positive (HCC)- Primary Malignant neoplasm metastatic to bone (HCC) Secondary malignant neoplasm of bone and bone marrow Malignant neoplasm metastatic to both lungs (HCC) 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, 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 Drug rash Dermatitis due to drugs and medicines taken internally History of thyroid nodule Personal history of other endocrine, metabolic, and immunity disorders [facility] Diagnosis Malignant neoplasm of lower-inner quadrant of right breast of female, estrogen receptor positive (HCC) Malignant neoplasm metastatic to lung, unspecified laterality (HCC) Malignant neoplasm metastatic to bone (HCC) 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) Malignant neoplasm metastatic to both lungs (HCC) [facility] Diagnosis Malignant neoplasm of lower-inner quadrant of right breast of female, estrogen receptor positive (HCC)- Primary Malignant neoplasm metastatic to lung, unspecified laterality (HCC) Malignant neoplasm metastatic to bone (HCC) 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) [facility] Diagnosis Malignant neoplasm of lower-inner quadrant of right breast of female, estrogen receptor positive (HCC)- Primary [facility] Diagnosis Malignant neoplasm of lower-inner quadrant of right breast of female, estrogen receptor positive (HCC) Malignant neoplasm metastatic to both lungs (HCC) HER2-positive carcinoma of breast (HCC) [facility] Diagnosis Malignant neoplasm metastatic to bone (HCC)- Primary Secondary malignant neoplasm of bone and bone marrow Malignant neoplasm of lower-inner quadrant of right breast of female, estrogen receptor positive (HCC) Malignant neoplasm metastatic to lung, unspecified laterality (HCC) HER2-positive carcinoma of breast (HCC) Malignant neoplasm metastatic to both lungs (HCC) [facility] Diagnosis Malignant neoplasm of lower-inner quadrant of right breast of female, estrogen receptor positive (HCC)- Primary Malignant neoplasm metastatic to bone (HCC) Secondary malignant neoplasm of bone and bone marrow Malignant neoplasm metastatic to both lungs (HCC) 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 [facility] Diagnosis Malignant neoplasm of lower-inner quadrant of right breast of female, estrogen receptor positive (HCC)- Primary Malignant neoplasm metastatic to lung, unspecified laterality (HCC) Malignant neoplasm metastatic to bone (HCC) 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 Diarrhea [facility] Diagnosis Malignant neoplasm of lower-inner quadrant of right breast of female, estrogen receptor positive (HCC)- Primary [facility] Diagnosis Malignant neoplasm of lower-inner quadrant of right breast of female, estrogen receptor positive (HCC)- Primary Malignant neoplasm metastatic to lung, unspecified laterality (HCC) Malignant neoplasm metastatic to bone (HCC) 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) Malignant neoplasm metastatic to both lungs (HCC) [facility] Diagnosis Malignant neoplasm of lower-inner quadrant of right breast of female, estrogen receptor positive (HCC)- Primary 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 [facility] Diagnosis Malignant neoplasm of lower-inner quadrant of right breast of female, estrogen receptor positive (HCC)- Primary Malignant neoplasm metastatic to lung, unspecified laterality (HCC) Malignant neoplasm metastatic to bone (HCC) 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) [facility] Diagnosis Malignant neoplasm of lower-inner quadrant of right breast of female, estrogen receptor positive (HCC) Malignant neoplasm metastatic to both lungs (HCC) HER2-positive carcinoma of breast (HCC) [facility] Diagnosis Malignant neoplasm of lower-inner quadrant of right breast of female, estrogen receptor positive (HCC) Malignant neoplasm metastatic to bone (HCC) 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 [facility] Diagnosis Malignant neoplasm of lower-inner quadrant of right breast of female, estrogen receptor positive (HCC) Malignant neoplasm metastatic to lung, unspecified laterality (HCC) Malignant neoplasm metastatic to bone (HCC) 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) Malignant neoplasm metastatic to both lungs (HCC) [facility] Diagnosis Encounter for monitoring cardiotoxic drug therapy- Primary Encounter for therapeutic drug monitoring Malignant neoplasm of lower-inner quadrant of right breast of female, estrogen receptor positive (HCC) Malignant neoplasm metastatic to bone (HCC) Secondary malignant neoplasm of bone and bone marrow Malignant neoplasm metastatic to both lungs (HCC) 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 Drug rash Dermatitis due to drugs and medicines taken internally History of thyroid nodule Personal history of other endocrine, metabolic, and immunity disorders [facility] Diagnosis Malignant neoplasm of lower-inner quadrant of right breast of female, estrogen receptor positive (HCC)- Primary Malignant neoplasm metastatic to lung, unspecified laterality (HCC) Malignant neoplasm metastatic to bone (HCC) 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) [facility] Diagnosis Malignant neoplasm of lower-inner quadrant of right breast of female, estrogen receptor positive (HCC)- Primary [facility] Diagnosis Malignant neoplasm of lower-inner quadrant of right breast of female, estrogen receptor positive (HCC)- Primary Malignant neoplasm metastatic to lung, unspecified laterality (HCC) Malignant neoplasm metastatic to bone (HCC) 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) Malignant neoplasm metastatic to both lungs (HCC) [facility] Diagnosis History of thyroid nodule Personal history of other endocrine, metabolic, and immunity disorders [facility] Diagnosis Malignant neoplasm of lower-inner quadrant of right breast of female, estrogen receptor positive (HCC) Malignant neoplasm metastatic to bone (HCC) Secondary malignant neoplasm of bone and bone marrow Malignant neoplasm metastatic to both lungs (HCC) [facility] Diagnosis Malignant neoplasm of lower-inner quadrant of right breast of female, estrogen receptor positive (HCC) Malignant neoplasm metastatic to lung, unspecified laterality (HCC) Malignant neoplasm metastatic to bone (HCC) 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) Malignant neoplasm metastatic to both lungs (HCC) [facility] Diagnosis Malignant neoplasm of lower-inner quadrant of right breast of female, estrogen receptor positive (HCC)- Primary Malignant neoplasm metastatic to bone (HCC) 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 [facility] Diagnosis Malignant neoplasm of lower-inner quadrant of right breast of female, estrogen receptor positive (HCC)- Primary Malignant neoplasm metastatic to lung, unspecified laterality (HCC) Malignant neoplasm metastatic to bone (HCC) 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) [facility] noteNo assessment information availableWSelect [facility] Work Phone: Evaluation note* Diagnosis Routine general medical examination at health care facility- Primary Routine general medical examination at a health care facility Malignant neoplasm metastatic to both lungs Bronchitis Bronchitis, not specified as acute or chronic History of right breast cancer Heart disease Unspecified heart disease documented in this encounter [facility] Work Phone: Evaluation note* Diagnosis Malignant neoplasm of lower-inner quadrant of right breast of female, estrogen receptor positive (HCC)- Primary HER2-positive carcinoma of breast (HCC) Malignant neoplasm metastatic to lung, unspecified laterality (HCC) [facility] Malignant neoplasm of lower-inner quadrant of right breast of female, estrogen receptor positive (HCC)- Primary HER2-positive carcinoma of breast (HCC) Malignant neoplasm metastatic to bone (HCC) Secondary malignant neoplasm of bone and bone marrow [facility] Diagnosis Malignant neoplasm of lower-inner quadrant of right breast of female, estrogen receptor positive (HCC)- Primary Malignant neoplasm metastatic to lung, unspecified laterality (HCC) Malignant neoplasm metastatic to bone (HCC) 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) [facility] Diagnosis Malignant neoplasm of lower-inner quadrant of right breast of female, estrogen receptor positive (HCC)- Primary Malignant neoplasm metastatic to lung, unspecified laterality (HCC) Malignant neoplasm metastatic to bone (HCC) 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) Malignant neoplasm metastatic to both lungs (HCC) [facility] Diagnosis Malignant neoplasm of lower-inner quadrant of right breast of female, estrogen receptor positive (HCC)- Primary Malignant neoplasm metastatic to bone (HCC) Secondary malignant neoplasm of bone and bone marrow Malignant neoplasm metastatic to lung, unspecified laterality (HCC) [facility] Diagnosis Malignant neoplasm of lower-inner quadrant of right breast of female, estrogen receptor positive (HCC)- Primary Malignant neoplasm metastatic to lung, unspecified laterality (HCC) Malignant neoplasm metastatic to bone (HCC) 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) [facility] Diagnosis Malignant neoplasm of lower-inner quadrant of right breast of female, estrogen receptor positive (HCC)- Primary [facility] Diagnosis Malignant neoplasm of lower-inner quadrant of right breast of female, estrogen receptor positive (HCC) HER2-positive carcinoma of breast (HCC) Malignant neoplasm metastatic to bone (HCC) Secondary malignant neoplasm of bone and bone marrow Malignant neoplasm metastatic to both lungs (HCC) [facility] Malignant neoplasm of lower-inner quadrant of right breast of female, estrogen receptor positive (HCC)- Primary Malignant neoplasm metastatic to lung, unspecified laterality (HCC) Malignant neoplasm metastatic to bone (HCC) 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) [facility] Diagnosis Malignant neoplasm of lower-inner quadrant of right breast of female, estrogen receptor positive (HCC)- Primary HER2-positive carcinoma of breast (HCC) Malignant neoplasm metastatic to bone (HCC) Secondary malignant neoplasm of bone and bone marrow Malignant neoplasm metastatic to both lungs (HCC) [facility] Diagnosis Malignant neoplasm of lower-inner quadrant of right breast of female, estrogen receptor positive (HCC)- Primary HER2-positive carcinoma of breast (HCC) Malignant neoplasm metastatic to bone (HCC) Secondary malignant neoplasm of bone and bone marrow [facility] Diagnosis Malignant neoplasm of lower-inner quadrant of right breast of female, estrogen receptor positive (HCC)- Primary HER2-positive carcinoma of breast (HCC) Malignant neoplasm metastatic to bone (HCC) Secondary malignant neoplasm of bone and bone marrow Malignant neoplasm metastatic to both lungs (HCC) 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, unspecified [facility] Diagnosis Malignant neoplasm of lower-inner quadrant of right breast of female, estrogen receptor positive (HCC)- Primary Malignant neoplasm metastatic to lung, unspecified laterality (HCC) Malignant neoplasm metastatic to bone (HCC) 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) documented in this encounter [facility] for referral (narrative)* Diagnostic Procedure Only (Routine) - Closed Specialty Diagnoses / Procedures Referred By Contac t Referred To Contact [facility] Diagnoses Malignant neoplasm of lower-inner quadrant of right breast of female, estrogen receptor positive (HCC) Bone metastases (HCC) Procedures NM PET/CT SKULL-THIGH INITIAL PET IMAGING CT ATTENUATION SKULL BASE MID-THIGH Rip Rivers DO [address] [place] [address] Molecular & Functional Imaging [address] [place] [address] Referral ID Status Reason Start Date Expiration Date V isits Requested Visits Authorized [id number] Closed Auto-Generate d Referral 08/12/2021 09/11/2022 1 1 [facility] for referral (narrative)* Diagnostic Procedure Only (Routine) - Authorized Specialty Diagnoses / Procedures Referred By Contac t Referred To Contact US IMAGING Diagnoses Thyroid nodule Procedures US THYROID/PARATHYROID US SOFT TISSUE HEAD & NECK REAL TIME IMGE DOCM Rip Rivers, DO [address] [place] [address] Us Imaging Referral ID Status Reason Start Date Expiration Date Visits Requested Visits Authorized [id number] Authorized Auto-Generat ed Referral 09/02/2021 10/02/2022 1 1 [facility] for referral (narrative)* Diagnostic Procedure Only (Routine) - Closed Specialty Diagnoses / Procedures Referred By Contac t Referred To Contact US IMAGING Diagnoses Thyroid nodule Procedures US THYROID/PARATHYROID US SOFT TISSUE HEAD & NECK REAL TIME IMGE DOCM Rip Rivers, DO [address] [place] [address] Us Imaging Referral ID Status Reason Start Date Expiration Date V isits Requested Visits Authorized [id number] Closed Auto-Generate d Referral 09/02/2021 10/02/2022 1 1 [facility] for referral (narrative)* Outpatient Procedure (Routine) - Pending Review Specialty Diagnoses / Procedures Referred By Contac t Referred To Contact [facility] Diagnoses Malignant neoplasm metastatic to both lungs (HCC) Malignant neoplasm of right breast in female, estrogen receptor positive, unspecified site of breast (HCC) Skin, 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) Procedures ECHO LIMITED ECHO TRANSTHORAC R-T 2D W/WO M-MODE REC COMP Rip Rivers, DO [address] [place] [address] [facility] [address] [address] Referral ID Status Reason Start Date Expiration Date Visits Requested Visits Authorized [id number] Pending Review Auto-Generat ed Referral 01/07/2022 01/07/2023 1 1 [facility] for referral (narrative)* Outpatient Procedure (Routine) - Pending Review Specialty Diagnoses / Procedures Referred By Contac t Referred To Contact [facility] [place] Diagnoses Malignant neoplasm of lower-inner quadrant of right breast of female, estrogen receptor positive (HCC) Bone metastases (HCC) Encounter for monitoring cardiotoxic drug therapy Procedures ECHO ECHO TTHRC R-T 2D W/WOM-MODE COMPL SPEC&COLR D Caity Cote APRN.TERRITORY DEVELOPMENT MANAGER [address] [place] [address] [facility] [place] [id number] Referral ID Status Reason Start Date Expiration Date Visits Requested Visits Authorized [id number] Pending Review Auto-Generat ed Referral 04/14/2022 04/14/2023 1 1 * MRI/CT (Routine) - Pending Review Specialty Diagnoses / Procedures Referred By Carmen moore Referred To Contact CT IMAGING Diagnoses Malignant neoplasm of lower-inner quadrant of right breast of female, estrogen receptor positive (HCC) Bone metastases (HCC) Procedures CT CHEST W IVCON DIAGNOSTIC COMPUTED TOMOGRAPHY THORAX W/CONTRAST Caity Cote APRN.TERRITORY DEVELOPMENT MANAGER [address] [place] [address] Ct Imaging Referral ID Status Reason Start Date Expiration Date Visits Requested Visits Authorized [id number] Pending Review Auto-Generat ed Referral 04/14/2022 05/14/2023 1 1 * MRI/CT (Routine) - Pending Review Specialty Diagnoses / Procedures Referred By Contac t Referred To Contact CT IMAGING Diagnoses Malignant neoplasm of lower-inner quadrant of right breast of female, estrogen receptor positive (HCC) Bone metastases (HCC) Procedures CT ABD/PEL W IVCON CT ABD & PELVIS W/CONTRAST Caity Cote APRN.TERRITORY DEVELOPMENT MANAGER [address] [place] [address] Ct Imaging Referral ID Status Reason Start Date Expiration Date Visits Requested Visits Authorized [id number] Pending Review Auto-Generat ed Referral 04/14/2022 05/14/2023 1 1 [facility] for referral (narrative)* Outpatient Procedure (Routine) - Pending Review Specialty Diagnoses / Procedures Referred By Carmen moore Referred To Contact [facility] Diagnoses Malignant neoplasm of lower-inner quadrant of right breast of female, estrogen receptor positive (HCC) Bone metastases (HCC) Skin, 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) Malignant neoplasm metastatic to both lungs (HCC) Encounter for monitoring cardiotoxic drug therapy Procedures ECHO ECHO TTHRC R-T 2D W/WOM-MODE COMPL SPEC&COLR D Caity Cote APRN.TERRITORY DEVELOPMENT MANAGER [address] [place] [address] [facility] [place] [address] [place] [address] Referral ID Status Reason Start Date Expiration Date Visits Requested Visits Authorized [id number] Pending Review Auto-Generat ed Referral 06/15/2022 06/15/2023 1 1 [facility] for referral (narrative)* Outpatient Procedure (Routine) - Pending Review Specialty Diagnoses / Procedures Referred By Conttio t Referred To Contact [facility] [place] Diagnoses Chemotherapy-induced cardiomyopathy (HCC) Procedures ECHO ECHO TTHRC R-T 2D W/WOM-MODE COMPL SPEC&COLR D Rip Rivers DO [address] [place] [address] [facility] [place] [address] [facility] [place] [address] Referral ID Status Reason Start Date Expiration Date Visits Requested Visits Authorized [id number] Pending Review Auto-Generat ed Referral 10/20/2022 10/20/2023 1 1 [facility] for referral (narrative)* Diagnostic Procedure Only (Routine) - Closed Specialty Diagnoses / Procedures Referred By Contac t Referred To Contact XR IMAGING Diagnoses Chronic left sacroiliac pain Procedures XR SACROILIAC JOINTS 2V AP PELVIS/FERGUESON RADIOLOGIC EXAMINATION SACROILIAC JNTS <3 VIEWS Rip Rivers, DO [address] [place] [address] Xr Imaging Referral ID Status Reason Start Date Expiration Date V isits Requested Visits Authorized [id number] Closed Auto-Generate d Referral 11/10/2022 12/10/2023 1 1 * Diagnostic Procedure Only (Routine) - Closed Specialty Diagnoses / Procedures Referred By Contac t Referred To Contact XR IMAGING Diagnoses Chronic left sacroiliac pain Procedures XR LUMBAR LIMITED 2V AP/LAT RADEX SPINE LUMBOSACRAL 2/3 VIEWS Rip Rivers, DO [address] [place] [address] Xr Imaging Referral ID Status Reason Start Date Expiration Date V isits Requested Visits Authorized [id number] Closed Auto-Generate d Referral 11/10/2022 12/10/2023 1 1 [facility] for referral (narrative)* Diagnostic Procedure Only (Routine) - Authorized Specialty Diagnoses / Procedures Referred By Contac t Referred To Contact BR IMAGING Diagnoses Abnormal mammogram Procedures US BREAST LTD LT US BREAST UNI REAL TIME WITH IMAGE LIMITED Rip Rivers DO [address] [place] [address] [facility] [address] [place] [address] Referral ID Status Reason Start Date Expiration Date Visits Requested Visits Authorized [id number] Authorized Auto-Generat ed Referral 08/24/2022 09/23/2023 1 1 [facility] for referral (narrative)* Outpatient Procedure (Routine) - Pending Review Specialty Diagnoses / Procedures Referred By Contac t Referred To [facility] Diagnoses Malignant neoplasm of lower-inner quadrant of right breast of female, estrogen receptor positive (HCC) 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) Malignant neoplasm metastatic to both lungs (HCC) Encounter for monitoring cardiotoxic drug therapy Procedures ECHO ECHO TTHRC R-T 2D W/WOM-MODE COMPL SPEC&COLR D Rip Rivers DO [address] [place] [address] [facility] [place] [address] [place] [address] Referral ID Status Reason Start Date Expiration Date Visits Requested Visits Authorized [id number] Pending Review Auto-Generat ed Referral 12/22/2022 12/22/2023 1 1 * MRI/CT (Routine) - Authorized Specialty Diagnoses / Procedures Referred By Contac t Referred To Contact CT IMAGING Diagnoses Malignant neoplasm of lower-inner quadrant of right breast of female, estrogen receptor positive (HCC) 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) Malignant neoplasm metastatic to both lungs (HCC) Procedures CT CHEST W IVCON DIAGNOSTIC COMPUTED TOMOGRAPHY THORAX W/CONTRAST Rip Rivers DO [address] [place] [address] Ct Imaging Referral ID Status Reason Start Date Expiration Date Visits Requested Visits Authorized [id number] Authorized Auto-Generat ed Referral 12/22/2022 01/21/2024 1 1 * MRI/CT (Routine) - Authorized Specialty Diagnoses / Procedures Referred By Contac t Referred To Contact CT IMAGING Diagnoses Malignant neoplasm of lower-inner quadrant of right breast of female, estrogen receptor positive (HCC) 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) Malignant neoplasm metastatic to both lungs (HCC) Procedures CT ABD/PEL W IVCON CT ABD & PELVIS W/CONTRAST Rip Rivers, DO [address] [facility] [place] [place] [address] Ct Imaging Referral ID Status Reason Start Date Expiration Date Visits Requested Visits Authorized [id number] Authorized Auto-Generat ed Referral 12/22/2022 01/21/2024 1 1 [facility] for referral (narrative)* Diagnostic Procedure Only (Routine) - Closed Specialty Diagnoses / Procedures Referred By Carmen moore Referred To Contact BR IMAGING Diagnoses Encounter for screening mammogram for malignant neoplasm of breast Procedures MAXIM SCREENING W OMI SCREENING DIGITAL BREAST TOMOSYNTHESIS BI SCREENING MAMMOGRAPHY BI 2-VIEW BREAST INC CAD Rip Rivers, DO [address] [place] [address] [facility] [address] [place] [address] Referral ID Status Reason Start Date Expiration Date V isits Requested Visits Authorized [id number] Closed Auto-Generate d Referral 07/06/2022 08/05/2023 1 1 [facility] for referral (narrative)* Diagnostic Procedure Only (Routine) - Closed Specialty Diagnoses / Procedures Referred By Carmen moore Referred To Contact US IMAGING Diagnoses Multiple thyroid nodules Procedures US THYROID/PARATHYROID US SOFT TISSUE HEAD & NECK REAL TIME IMGE DOCM Rip Rivers, DO [address] [place] [place] [address] [place] [address] Referral ID Status Reason Start Date Expiration Date V isits Requested Visits Authorized [id number] Closed Auto-Generate d Referral 03/16/2023 04/14/2024 1 1 [facility] for referral (narrative)* Diagnostic Procedure Only (Routine) - Closed Specialty Diagnoses / Procedures Referred By Contac t Referred To Contact XR IMAGING Diagnoses Chronic left sacroiliac pain Procedures XR SACROILIAC JOINTS 2V AP PELVIS/FERGUESON RADIOLOGIC EXAMINATION SACROILIAC JNTS <3 VIEWS Rip Rivers DO [address] [place] [address] [place] [address] Referral ID Status Reason Start Date Expiration Date V isits Requested Visits Authorized [id number] Closed Auto-Generate d Referral 11/10/2022 12/10/2023 1 1 * Diagnostic Procedure Only (Routine) - Closed Specialty Diagnoses / Procedures Referred By Contac t Referred To Contact XR IMAGING Diagnoses Chronic left sacroiliac pain Procedures XR LUMBAR LIMITED 2V AP/LAT RADEX SPINE LUMBOSACRAL 2/3 VIEWS Rip Rivers DO [address] [place] [address] [place] [address] Referral ID Status Reason Start Date Expiration Date V isits Requested Visits Authorized [id number] Closed Auto-Generate d Referral 11/10/2022 12/10/2023 1 1 [facility] for referral (narrative)* Outpatient Procedure (Routine) - Pending Review Specialty Diagnoses / Procedures Referred By Contac t Referred To [facility] Diagnoses Malignant neoplasm metastatic to both lungs (HCC) Encounter for monitoring cardiotoxic drug therapy Procedures ECHO ECHO TTHRC R-T 2D W/WOM-MODE COMPL SPEC&COLR D Rip Rivers DO [address] [place] [address] [facility] [place] [address] [place] [address] Referral ID Status Reason Start Date Expiration Date Visits Requested Visits Authorized [id number] Pending Review Auto-Generat ed Referral 04/25/2024 1 1 [facility] for referral (narrative)* Diagnostic Procedure Only (Routine) - Authorized Specialty Diagnoses / Procedures Referred By Contac t Referred To Contact [facility]AL [facility] Diagnoses Malignant neoplasm of lower-inner quadrant of right breast of female, estrogen receptor positive (HCC) Malignant neoplasm metastatic to bone (HCC) Malignant neoplasm metastatic to lung, unspecified laterality (HCC) Malignant neoplasm metastatic to both lungs (HCC) Procedures NM PET/CT SKULL-THIGH SUBSEQUENT PET IMAGING CT ATTENUATION SKULL BASE MID-THIGH Rip Rivers DO [address] [place] [address] [facility] [address] [place] [address] Referral ID Status Reason Start Date Expiration Date Visits Requested Visits Authorized [id number] Authorized Auto-Generat ed Referral 08/10/2023 09/08/2024 1 1 [facility] for referral (narrative)* Diagnostic Procedure Only (Routine) - Authorized Specialty Diagnoses / Procedures Referred By Contac t Referred To Contact US IMAGING Diagnoses RUQ pain Procedures US ABD RIGHT UPPER QUADRANT US ABDOMINAL REAL TIME W/IMAGE LIMITED Rip Rivers DO [address] [place] [address] [place] [address] Referral ID Status Reason Start Date Expiration Date Visits Requested Visits Authorized [id number] Authorized Auto-Generat ed Referral 08/30/2023 2024 1 1 [facility] for referral (narrative)* Outpatient Procedure (Routine) - Pending Review Specialty Diagnoses / Procedures Referred By Contac t Referred To Contact [facility] Diagnoses Encounter for monitoring cardiotoxic drug therapy Procedures ECHO ECHO TTHRC R-T 2D W/WOM-MODE COMPL SPEC&COLR D Rip Rivers DO [address] [place] [address] [facility] [place] [address] [place] [address] Referral ID Status Reason Start Date Expiration Date Visits Requested Visits Authorized [id number] Pending Review Auto-Generat ed Referral 09/21/2023 09/20/2024 1 1 [facility] for referral (narrative)* Outpatient Procedure (Routine) - Pending Review Specialty Diagnoses / Procedures Referred By Contac t Referred To Contact [facility] [place] Diagnoses Chemotherapy-induced cardiomyopathy (HCC) Encounter for monitoring cardiotoxic drug therapy Procedures ECHO ECHO TTHRC R-T 2D W/WOM-MODE COMPL SPEC&COLR D Rip Rivers DO [address] [place] [address] [facility] [address] [place] [address] Referral ID Status Reason Start Date Expiration Date Visits Requested Visits Authorized [id number] Pending Review Auto-Generat ed Referral 11/23/2023 11/22/2024 1 1 [facility] for referral (narrative)* Consultation (Routine) - Authorized Specialty Diagnoses / Procedures Referred By Contac t Referred To Contact Primary Care Procedures Follow Up In Primary Care - Established Williams Farrell DO [address] [facility] [place] [address] Referral ID Status Reason Start Date Expiration Date V isits Requested Visits Authorized [id number] Authorized 06/16/2023 06/15/2024 1 1 [facility] Work Phone: Reason for referral (narrative)* Outpatient Procedure (Routine) - New Request Specialty Diagnoses / Procedures Referred By Contac t Referred To Contact [facility] [place] Diagnoses Encounter for monitoring cardiotoxic drug therapy Chemotherapy induced cardiomyopathy (HCC) Procedures ECHO ECHO TTHRC R-T 2D W/WOM-MODE COMPL SPEC&COLR D Rip Rivers DO [address] [place] [address] [facility] [place] [address] [place] [address] Referral ID Status Reason Start Date Expiration Date Visits Requested Visits Authorized [id number] New Request Auto-Generat ed Referral 01/06/2024 01/05/2025 1 1 * Outpatient Procedure (Routine) - New Request Specialty Diagnoses / Procedures Referred By Carmen moore Referred To Contact [facility] Diagnoses Encounter for monitoring cardiotoxic drug therapy Procedures ECHO ECHO TTHRC R-T 2D W/WOM-MODE COMPL SPEC&COLR D Rip Rivers DO [address] [place] [address] [facility] [address] [place] [address] Referral ID Status Reason Start Date Expiration Date Visits Requested Visits Authorized [id number] New Request Auto-Generat ed Referral 01/06/2024 01/04/2025 1 1 [facility] for referral (narrative)* Outpatient Procedure (Routine) - New Request Specialty Diagnoses / Procedures Referred By Carmen moore Referred To Contact [facility] Diagnoses Chemotherapy induced cardiomyopathy (HCC) Encounter for monitoring cardiotoxic drug therapy Procedures CARDIO ONCOLOGY ECHO ECHO TTHRC R-T 2D W/WOM-MODE COMPL SPEC&COLR D Rip Rivers DO [address] [place] [place] [address] [facility] [address] [place] [address] Referral ID Status Reason Start Date Expiration Date Visits Requested Visits Authorized [id number] New Request Auto-Generat ed Referral 01/11/2024 01/10/2025 1 1 [facility]No reason for [facility]: Reason for visit Narrative* Diagnostic Procedure Only (Routine) - Closed Specialty Diagnoses / Procedures Referred By Carmen moore Referred To Contact MOLECULAR [facility] FUNCTIONAL [facility] Diagnoses Malignant neoplasm of lower-inner quadrant of right breast of female, estrogen receptor positive (HCC) Bone metastases (HCC) Procedures NM PET/CT SKULL-THIGH INITIAL PET IMAGING CT ATTENUATION SKULL BASE MID-THIGH Rip Rivers, DO [address] [place] [address] [facility] [address] [place] [address] Referral ID Status Reason Start Date Expiration Date V isits Requested Visits Authorized [id number] Closed Auto-Generate d Referral 08/12/2021 09/11/2022 1 1 [facility] for visit Narrative* Diagnostic Procedure Only (Routine) - Closed Specialty Diagnoses / Procedures Referred By Carmen moore Referred To Contact BR IMAGING Diagnoses Abnormal mammogram Procedures MAXIM DIAGNOSTIC LT DIAGNOSTIC MAMMOGRAPHY COMPUTER-AIDED DETCJ UNI Rip Rivers, DO [address] [place] [address] [facility] [address] [place] [address] Referral ID Status Reason Start Date Expiration Date V isits Requested Visits Authorized [id number] Closed Auto-Generate d Referral 08/24/2022 09/23/2023 1 1 [facility] for visit Narrative* Diagnostic Procedure Only (Routine) - Closed Specialty Diagnoses / Procedures Referred By Carmen moore Referred To Contact BR IMAGING Diagnoses Encounter for screening mammogram for malignant neoplasm of breast Procedures MAXIM SCREENING W OMI SCREENING DIGITAL BREAST TOMOSYNTHESIS BI SCREENING MAMMOGRAPHY BI 2-VIEW BREAST INC CAD Rip Rivers, DO [address] [place] [address] [facility] [address] [place] [address] Referral ID Status Reason Start Date Expiration Date V isits Requested Visits Authorized [id number] Closed Auto-Generate d Referral 07/06/2022 08/05/2023 1 1 [facility] for visit Narrative* Diagnostic Procedure Only (Routine) - Closed Specialty Diagnoses / Procedures Referred By Contac t Referred To Contact US IMAGING Diagnoses Multiple thyroid nodules Procedures US THYROID/PARATHYROID US SOFT TISSUE HEAD & NECK REAL TIME IMGE DOCM Rip Rivers, DO [address] [facility] [address] [place] [address] [place] [address] Referral ID Status Reason Start Date Expiration Date V isits Requested Visits Authorized [id number] Closed Auto-Generate d Referral 03/16/2023 04/14/2024 1 1 [facility] for visit Narrative* Diagnostic Procedure Only (Routine) - Closed Specialty Diagnoses / Procedures [facility]erred By [facility] Referred To Contact XR IMAGING Diagnoses Chronic left sacroiliac pain Procedures XR SACROILIAC JOINTS 2V AP PELVIS/FERGUESON RADIOLOGIC EXAMINATION SACROILIAC JNTS <3 VIEWS Rip Rivers, DO [address] [place] [address] [place] [address] Referral ID Status Reason Start Date Expiration Date V isits Requested Visits Authorized [id number] Closed Auto-Generate d Referral 11/10/2022 12/10/2023 1 1 [facility] for visit Narrative* Diagnostic Procedure Only (Routine) - Closed Specialty Diagnoses / Procedures Referred By Carmen t Referred To Contact [facility] FUN[facility]AL [facility] Diagnoses Malignant neoplasm of lower-inner quadrant of right breast of female, estrogen receptor positive (HCC) Malignant neoplasm metastatic to bone (HCC) Malignant neoplasm metastatic to lung, unspecified laterality (HCC) Malignant neoplasm metastatic to both lungs (HCC) Procedures NM PET/CT SKULL-THIGH SUBSEQUENT PET IMAGING CT ATTENUATION SKULL BASE MID-THIGH Rip Rivers, DO [address] [place] [address] [facility] [address] [place] [address] Referral ID Status Reason Start Date Expiration Date V isits Requested Visits Authorized [id number] Closed Auto-Generate d Referral 08/10/2023 09/08/2024 1 1 [facility] for visit Narrative* MRI/CT (Routine) - Closed Specialty Diagnoses / Procedures [facility] Referred To Contact CT IM[facility]ING Diagnoses Malignant neoplasm of lower-inner quadrant of right breast of female, estrogen receptor positive (HCC) Malignant neoplasm metastatic to bone (HCC) Malignant neoplasm metastatic to both lungs (HCC) Procedures CT ABD/PEL W IVCON CT ABD & PELVIS W/CONTRAST Rip Rivers, DO [address] [place] [address] Phone: tel: fax: [place] [address] Referral ID Status Reason Start Date Expiration Date V isits Requested Visits Authorized [id number] Closed Auto-Generate d Referral 08/15/2024 09/14/2025 1 1 [facility] for visit Narrative* [place] Prior Authorization (Routine) - Authorized Specialty Diagnoses / Procedures Referred By Conttio t Referred To Contact Diagnoses Malignant neoplasm of lower-inner quadrant of right breast of female, estrogen receptor positive (HCC) Malignant neoplasm metastatic to lung, unspecified laterality (HCC) Malignant neoplasm metastatic to bone (HCC) HER2-positive carcinoma of breast (HCC) Rip Rivers, DO [address] [place] [address] Phone: tel: fax: Hematology/Oncology [address] [place] [address] Phone: tel: fax: Referral ID Status Reason Start Date Expiration Date V isits Requested Visits Authorized [id number] Authorized 08/30/2023 11/28/2023 99 99 [facility] Advance Directives No Advanced Directives Records FoundDocuments on File 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) 06/04/2019 9:16 AM Advance Directive(s) 03/25/2016 10:44 AM Documents on File 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) 06/04/2019 9:16 AM Advance Directive(s) 03/25/2016 10:44 AM Advance Directive Response Recorded Date/ Time Advance Directives No February 2:40pm Living Will No May 01 10:24am Power of Filter Press Pumper No May 01, 2019 10:24am Documents on File 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) 06/04/2019 9:16 AM Documents on File 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) 06/04/2019 9:16 AM Advance Directive Response Recorded Date/ Time Advance Directives No February 1:40pm Living Will No May 01, 9:24am Power of Filter Press Pumper No May 01, 2019 9:24am Advance Directive Response Recorded Date/ Time Name of Medical Power of Filter Press Pumper tanvi/ February 16, 2023 6:54pm Advance Directives No February 2:40pm Living Will Yes February 16, 2023 6:54pm Power of Filter Press Pumper Yes February 6:54pm Advance Directive Response Recorded Date/ Time Name of Medical Power of Filter Press Pumper Tanvi Christiansen February 17, 2023 1:43am Advance Directives No February 2:40pm Living Will Yes February 17, 2023 1:43am Power of Filter Press Pumper Yes February 1:43am Advance Directive Response Recorded Date/ Time Name of Medical Power of Filter Press Pumper Tanvi Christiansen February 17, 2023 12:43am Advance Directives No February 1:40pm Living Will Yes February 17, 2023 12:43am Power of Filter Press Pumper Yes February 12:43am Advance Directive Response Recorded Date/ Time Name of Medical Power of Filter Press Pumper August 16, 2023 10:53pm Advance Directives No February 2:40pm Living Will Yes August 16, 2023 10:53pm Power of Filter Press Pumper Yes August 15 10:53pm Advance Directive Response Recorded Date/ Time Advance Directives No February 2:40pm Medications Administered Section Inactive Administered Medications - up to 3 most recent administrations Medication Order MAR Action Action Date Dose Rate Site dexAMETHasone 10 mg/NS 50 mL (PYXIS) 10 mg ivpb 10 mg, INTRAVENOUS, ONCE, 1 dose, On Tue09/10/21 at 0830, Refrigerate. New Bag/Syringe/Bottle 09/10/2021 8:18 AM EDT 10 mg fam-trastuzumab deruxtecan-nxki 467.64 mg in D5W 100 mL (ENHERTU) 467.64 mg (5.4 mg/kg/dose 86.6 kg Treatment plan Recorded weight), INTRAVENOUS, Administer over 90 Minutes, ONCE, 1 dose, On Amarilys 09/10/21 at 0830, Approx Total Volume: exp 1300 09/10/21 (room temp) Hazardous Chemotherapy Drug: Use appropriate PPE. Administer with 0.2 micron filter. Flush line with D5W before and after administration. Refrigerate - Protect from Light New Bag/Syringe/Bottle 09/10/2021 9:00 AM EDT 467.64 mg palonosetron 0.25 mg injection (ALOXI) 0.25 mg, INTRAVENOUS, ONCE, 1 dose, On Amarilys 09/10/21 at 0830, Flush IV line with NS prior to and following administration. Given 09/10/2021 8:16 AM EDT 0.25 mg Inactive Administered Medications - up to 3 most recent administrations Medication Order MAR Action Action Date Dose Rate Site dexAMETHasone 10 mg/NS 50 mL (PYXIS) 10 mg ivpb (DECADRON) 10 mg, INTRAVENOUS, Administer over 15 Minutes, ONCE, 1 dose, On [facility] 10/01/21 at 0900, Refrigerate. New Bag/Syringe/Bottle 10/01/2021 9:13 AM EDT 10 mg fam-trastuzumab deruxtecan-nxki 467.64 mg in D5W 100 mL (ENHERTU) 467.64 mg (5.4 mg/kg/dose 86.6 kg Treatment plan Recorded weight), INTRAVENOUS, Administer over 30 Minutes, ONCE, 1 dose, On [facility] 10/01/21 at 0900, Approx Total Volume - IMMEDIATE USE at room temp Hazardous Chemotherapy Drug: Use appropriate PPE. Administer with 0.2 micron filter. Flush line with D5W before and after administration. Refrigerate - Protect from Light New Bag/Syringe/Bottle 10/01/2021 9:33 AM EDT 467.64 mg palonosetron 0.25 mg injection (ALOXI) 0.25 mg, INTRAVENOUS, ONCE, 1 dose, On Amarilys 10/01/21 at 0900, Flush IV line with NS prior to and following administration. Given 10/01/2021 9:12 AM EDT 0.25 mg Inactive Administered Medications - up to 3 most recent administrations Medication Order MAR Action Action Date Dose Rate Site dexAMETHasone 10 mg/NS 50 mL (PYXIS) 10 mg ivpb (DECADRON) 10 mg, INTRAVENOUS, ONCE, 1 dose, On Amarilys 10/22/21 at 1000, Refrigerate. New Bag/Syringe/Bottle 10/22/2021 10:03 AM EDT 10 mg fam-trastuzumab deruxtecan-nxki 467.64 mg in D5W 133.382 mL (ENHERTU) 467.64 mg (5.4 mg/kg/dose 86.6 kg Treatment plan Recorded weight), INTRAVENOUS, Administer over 30 Minutes, ONCE, 1 dose, On [facility] 10/22/21 at 1030, exp immediate use (room temp) Hazardous Chemotherapy Drug: Use appropriate PPE. Administer with 0.2 micron filter. Flush line with D5W before and after administration. Refrigerate - Protect from Light New Bag/Syringe/Bottle 10/22/2021 10:44 AM EDT 467.64 mg palonosetron 0.25 mg injection (ALOXI) 0.25 mg, INTRAVENOUS, ONCE, 1 dose, On [facility] 10/22/21 at 1000, Flush IV line with NS prior to and following administration. Given 10/22/2021 10:02 AM EDT 0.25 mg Inactive Administered Medications - up to 3 most recent administrations Medication Order MAR Action Action Date Dose Rate Site zoledronic [id number]-[id number]-4.9NaCl 4 mg iv piggyback 100 mL (ZOMETA) 4 mg, INTRAVENOUS, Administer over 15 Minutes, ONCE, 1 dose, On Tue11/09/21 at 1400, Hazardous Potential Reproductive Risk Drug: Use appropriate PPE. New Bag/Syringe/Bottle 11/09/2021 1:57 PM EDT 4 mg Inactive Administered Medications - up to 3 most recent administrations Medication Order MAR Action Action Date Dose Rate Site dexAMETHasone 10 mg/NS 50 mL (PYXIS) 10 mg ivpb (DECADRON) 10 mg, INTRAVENOUS, ONCE, 1 dose, On Amarilys 11/12/21 at 1330, Refrigerate. New Bag/Syringe/Bottle 11/12/2021 1:42 PM EDT 10 mg fam-trastuzumab deruxtecan-nxki 467.64 mg in D5W 133.382 mL (ENHERTU) 467.64 mg (5.4 mg/kg/dose 86.6 kg Treatment plan Recorded weight), INTRAVENOUS, Administer over 30 Minutes, ONCE, 1 dose, On Amarilys 11/12/21 at 1330, exp immediate use (room temp) Hazardous Chemotherapy Drug: Use appropriate PPE. Administer with 0.2 micron filter. Flush line with D5W before and after administration. Refrigerate - Protect from Light New Bag/Syringe/Bottle 11/12/2021 2:09 PM EDT 467.64 mg palonosetron 0.25 mg injection (ALOXI) 0.25 mg, INTRAVENOUS, ONCE, 1 dose, On Amarilys 11/12/21 at 1330, Flush IV line with NS prior to and following administration. Given 11/12/2021 1:40 PM EDT 0.25 mg Inactive Administered Medications - up to 3 most recent administrations Medication Order MAR Action Action Date Dose Rate Site dexAMETHasone 10 mg/NS 50 mL (PYXIS) 10 mg ivpb (DECADRON) 10 mg, INTRAVENOUS, ONCE, 1 dose, On Amarilys 12/24/21 at 0900, Refrigerate. New Bag/Syringe/Bottle 12/24/2021 9:09 AM EDT 10 mg fam-trastuzumab deruxtecan-nxki 443.34 mg in D5W 132.167 mL (ENHERTU) 443.34 mg (5.4 mg/kg/dose 82.1 kg Treatment plan Recorded weight), INTRAVENOUS, Administer over 30 Minutes, ONCE, 1 dose, On Amarilys 12/24/21 at 0900, exp immediate use (room temp) Hazardous Chemotherapy Drug: Use appropriate PPE. Administer with 0.2 micron filter. Flush line with D5W before and after administration. Refrigerate - Protect from Light New Bag/Syringe/Bottle 12/24/2021 10:35 AM EDT 443.34 mg palonosetron 0.25 mg injection (ALOXI) 0.25 mg, INTRAVENOUS, ONCE, 1 dose, On Amarilys 12/24/21 at 0900, Flush IV line with NS prior to and following administration. Given 12/24/2021 9:09 AM EDT 0.25 mg Inactive Administered Medications - up to 3 most recent administrations Medication Order MAR Action Action Date Dose Rate Site dexAMETHasone 10 mg/NS 50 mL (PYXIS) 10 mg ivpb (DECADRON) 10 mg, INTRAVENOUS, ONCE, 1 dose, On Amarilys 01/14/22 at 0900, Refrigerate. New Bag/Syringe/Bottle 01/14/2022 9:04 AM EDT 10 mg fam-trastuzumab deruxtecan-nxki 443.34 mg in D5W 132.167 mL (ENHERTU) 443.34 mg (5.4 mg/kg/dose 82.1 kg Treatment plan Recorded weight), INTRAVENOUS, Administer over 30 Minutes, ONCE, 1 dose, On Amarilys 01/14/22 at 0900, exp immediate use (room temp) Hazardous Chemotherapy Drug: Use appropriate PPE. Administer with 0.2 micron filter. Flush line with D5W before and after administration. Refrigerate - Protect from Light New Bag/Syringe/Bottle 01/14/2022 9:24 AM EDT 443.34 mg palonosetron 0.25 mg injection (ALOXI) 0.25 mg, INTRAVENOUS, ONCE, 1 dose, On Amarilys 01/14/22 at 0900, Flush IV line with NS prior to and following administration. Given 01/14/2022 9:01 AM EDT 0.25 mg Inactive Administered Medications - up to 3 most recent administrations Medication Order MAR Action Action Date Dose Rate Site dexAMETHasone 10 mg/NS 50 mL (PYXIS) 10 mg ivpb (DECADRON) 10 mg, INTRAVENOUS, ONCE, 1 dose, On Amarilys 02/04/22 at 1100, Refrigerate. New Bag/Syringe/Bottle 02/04/2022 11:03 AM EDT 10 mg fam-trastuzumab deruxtecan-nxki 443.34 mg in D5W 132.167 mL (ENHERTU) 443.34 mg (5.4 mg/kg/dose 82.1 kg Treatment plan Recorded weight), INTRAVENOUS, Administer over 30 Minutes, ONCE, 1 dose, On Amarilys 02/04/22 at 1100, exp immediate use (room temp) Hazardous Chemotherapy Drug: Use appropriate PPE. Administer with 0.2 micron filter. Flush line with D5W before and after administration. Refrigerate - Protect from Light New Bag/Syringe/Bottle 02/04/2022 11:48 AM EDT 443.34 mg palonosetron 0.25 mg injection (ALOXI) 0.25 mg, INTRAVENOUS, ONCE, 1 dose, On Tue02/04/22 at 1100, Flush IV line with NS prior to and following administration. Given 02/04/2022 11:00 AM EDT 0.25 mg zoledronic ij-wyfgrjjz-2.9NaCl 4 mg iv piggyback 100 mL (ZOMETA) 4 mg, INTRAVENOUS, Administer over 15 Minutes, ONCE, 1 dose, On Amarilys 02/04/22 at 1100, Hazardous Potential Reproductive Risk Drug: Use appropriate PPE. New Bag/Syringe/Bottle 02/04/2022 11:28 AM EDT 4 mg Inactive Administered Medications - up to 3 most recent administrations Medication Order MAR Action Action Date Dose Rate Site dexAMETHasone 10 mg/NS 50 mL (PYXIS) 10 mg ivpb (DECADRON) 10 mg, INTRAVENOUS, ONCE, 1 dose, On Amarilys 02/25/22 at 0900, Refrigerate. New Bag/Syringe/Bottle 02/25/2022 9:00 AM EDT 10 mg fam-trastuzumab deruxtecan-nxki 443.34 mg in D5W 132.167 mL (ENHERTU) 443.34 mg (5.4 mg/kg/dose 82.1 kg Treatment plan Recorded weight), INTRAVENOUS, Administer over 30 Minutes, ONCE, 1 dose, On Amarilys 02/25/22 at 0900, exp immediate use 02/25/22 (room temp) Hazardous Chemotherapy Drug: Use appropriate PPE. Administer with 0.2 micron filter. Flush line with D5W before and after administration. Refrigerate - Protect from Light New Bag/Syringe/Bottle 02/25/2022 9:23 AM EDT 443.34 mg palonosetron 0.25 mg injection (ALOXI) 0.25 mg, INTRAVENOUS, ONCE, 1 dose, On Amarilys 02/25/22 at 0900, Flush IV line with NS prior to and following administration. Given 02/25/2022 9:00 AM EDT 0.25 mg Inactive Administered Medications - up to 3 most recent administrations Medication Order MAR Action Action Date Dose Rate Site dexAMETHasone 10 mg/NS 50 mL (PYXIS) 10 mg ivpb (DECADRON) 10 mg, INTRAVENOUS, ONCE, 1 dose, On Amarilys 03/18/22 at 1130, Refrigerate. New Bag/Syringe/Bottle 03/18/2022 11:38 AM EDT 10 mg fam-trastuzumab deruxtecan-nxki 443.34 mg in D5W 132.167 mL (ENHERTU) 443.34 mg (5.4 mg/kg/dose 82.1 kg Treatment plan Recorded weight), INTRAVENOUS, Administer over 30 Minutes, ONCE, 1 dose, On Amarilys 03/18/22 at 1130, Immediate use Hazardous Chemotherapy Drug: Use appropriate PPE. Administer with 0.2 micron filter. Flush line with D5W before and after administration. Refrigerate - Protect from Light New Bag/Syringe/Bottle 03/18/2022 12:13 PM EDT 443.34 mg palonosetron 0.25 mg injection (ALOXI) 0.25 mg, INTRAVENOUS, ONCE, 1 dose, On Amarilys 03/18/22 at 1130, Flush IV line with NS prior to and following administration. Given 03/18/2022 11:38 AM EDT 0.25 mg Inactive Administered Medications - up to 3 most recent administrations Medication Order MAR Action Action Date Dose Rate Site dexAMETHasone 10 mg/NS 50 mL (PYXIS) 10 mg ivpb (DECADRON) 10 mg, INTRAVENOUS, ONCE, 1 dose, On Amarilys 04/15/22 at 1030, Refrigerate. New Bag/Syringe/Bottle 04/15/2022 10:39 AM EST 10 mg fam-trastuzumab deruxtecan-nxki 443.34 mg in D5W 132.167 mL (ENHERTU) 443.34 mg (5.4 mg/kg/dose 82.1 kg Treatment plan Recorded weight), INTRAVENOUS, Administer over 30 Minutes, ONCE, 1 dose, On Amarilys 04/15/22 at 1030, exp immediate use Hazardous Chemotherapy Drug: Use appropriate PPE. Administer with 0.2 micron filter. Flush line with D5W before and after administration. Refrigerate - Protect from Light New Bag/Syringe/Bottle 04/15/2022 10:57 AM EST 443.34 mg palonosetron 0.25 mg injection (ALOXI) 0.25 mg, INTRAVENOUS, ONCE, 1 dose, On Amarilys 04/15/22 at 1030, Flush IV line with NS prior to and following administration. Given 04/15/2022 10:37 AM EST 0.25 mg Inactive Administered Medications - up to 3 most recent administrations Medication Order MAR Action Action Date Dose Rate Site dexAMETHasone 10 mg/NS 50 mL (PYXIS) 10 mg ivpb (DECADRON) 10 mg, INTRAVENOUS, ONCE, 1 dose, On Tue05/06/22 at 1100, Refrigerate. New Bag/Syringe/Bottle 05/06/2022 11:00 AM EST 10 mg fam-trastuzumab deruxtecan-nxki 443.34 mg in D5W 132.167 mL (ENHERTU) 443.34 mg (5.4 mg/kg/dose 82.1 kg Treatment plan Recorded weight), INTRAVENOUS, Administer over 30 Minutes, ONCE, 1 dose, On Tue05/06/22 at 1100, Immediate use Hazardous Chemotherapy Drug: Use appropriate PPE. Administer with 0.2 micron filter. Flush line with D5W before and after administration. Refrigerate - Protect from Light New Bag/Syringe/Bottle 05/06/2022 11:17 AM EST 443.34 mg palonosetron 0.25 mg injection (ALOXI) 0.25 mg, INTRAVENOUS, ONCE, 1 dose, On Tue05/06/22 at 1100, Flush IV line with NS prior to and following administration. Given 05/06/2022 10:55 AM EST 0.25 mg zoledronic tt-eruxwzjz-0.9NaCl 4 mg iv piggyback 100 mL (ZOMETA) 4 mg, INTRAVENOUS, Administer over 15 Minutes, ONCE, 1 dose, On Tue05/06/22 at 1200, Hazardous Potential Reproductive Risk Drug: Use appropriate PPE. New Bag/Syringe/Bottle 05/06/2022 11:51 AM EST 4 mg Inactive Administered Medications - up to 3 most recent administrations Medication Order MAR Action Action Date Dose Rate Site dexAMETHasone 10 mg/NS 50 mL (PYXIS) 10 mg ivpb (DECADRON) 10 mg, INTRAVENOUS, ONCE, 1 dose, On Tue05/27/22 at 1100, Refrigerate. New Bag/Syringe/Bottle 05/27/2022 10:56 AM EST 10 mg fam-trastuzumab deruxtecan-nxki 443.34 mg in D5W 132.167 mL (ENHERTU) 443.34 mg (5.4 mg/kg/dose 82.1 kg Treatment plan Recorded weight), INTRAVENOUS, Administer over 30 Minutes, ONCE, 1 dose, On Tue05/27/22 at 1100, Immediate use Hazardous Chemotherapy Drug: Use appropriate PPE. Administer with 0.2 micron filter. Flush line with D5W before and after administration. Refrigerate - Protect from Light New Bag/Syringe/Bottle 05/27/2022 11:14 AM EST 443.34 mg palonosetron 0.25 mg injection (ALOXI) 0.25 mg, INTRAVENOUS, ONCE, 1 dose, On Amarilys 05/27/22 at 1100, Flush IV line with NS prior to and following administration. Given 05/27/2022 10:53 AM EST 0.25 mg Inactive Administered Medications - up to 3 most recent administrations Medication Order MAR Action Action Date Dose Rate Site dexAMETHasone 10 mg/NS 50 mL (PYXIS) 10 mg ivpb (DECADRON) 10 mg, INTRAVENOUS, ONCE, 1 dose, On Amarilys 06/17/22 at 1100, Refrigerate. New Bag/Syringe/Bottle 06/17/2022 10:58 AM EST 10 mg fam-trastuzumab deruxtecan-nxki 443.34 mg in D5W 132.167 mL (ENHERTU) 443.34 mg (5.4 mg/kg/dose 82.1 kg Treatment plan Recorded weight), INTRAVENOUS, Administer over 30 Minutes, ONCE, 1 dose, On Amarilys 06/17/22 at 1100, Immediate use Hazardous Chemotherapy Drug: Use appropriate PPE. Administer with 0.2 micron filter. Flush line with D5W before and after administration. Refrigerate - Protect from Light New Bag/Syringe/Bottle 06/17/2022 11:17 AM EST 443.34 mg palonosetron 0.25 mg injection (ALOXI) 0.25 mg, INTRAVENOUS, ONCE, 1 dose, On Amarilys 06/17/22 at 1100, Flush IV line with NS prior to and following administration. Given 06/17/2022 10:56 AM EST 0.25 mg Inactive Administered Medications - up to 3 most recent administrations Medication Order MAR Action Action Date Dose Rate Site dexAMETHasone 10 mg/NS 50 mL (PYXIS) 10 mg ivpb (DECADRON) 10 mg, INTRAVENOUS, ONCE, 1 dose, On Amarilys 07/08/22 at 1000, Refrigerate. New Bag/Syringe/Bottle 07/08/2022 10:00 AM EST 10 mg fam-trastuzumab deruxtecan-nxki 443.34 mg in D5W 132.167 mL (ENHERTU) 443.34 mg (5.4 mg/kg/dose 82.1 kg Treatment plan Recorded weight), INTRAVENOUS, Administer over 30 Minutes, ONCE, 1 dose, On Amarilys 07/08/22 at 1000, Immediate use Hazardous Chemotherapy Drug: Use appropriate PPE. Administer with 0.2 micron filter. Flush line with D5W before and after administration. Refrigerate - Protect from Light New Bag/Syringe/Bottle 07/08/2022 10:25 AM EST 443.34 mg palonosetron 0.25 mg injection (ALOXI) 0.25 mg, INTRAVENOUS, ONCE, 1 dose, On Amarilys 07/08/22 at 1000, Flush IV line with NS prior to and following administration. Given 07/08/2022 9:57 AM EST 0.25 mg Inactive Administered Medications - up to 3 most recent administrations Medication Order MAR Action Action Date Dose Rate Site dexAMETHasone 10 mg/NS 50 mL (PYXIS) 10 mg ivpb (DECADRON) 10 mg, INTRAVENOUS, ONCE, 1 dose, On Amarilys 07/29/22 at 0900, Refrigerate. New Bag/Syringe/Bottle 07/29/2022 9:32 AM EST 10 mg fam-trastuzumab deruxtecan-nxki 443.34 mg in D5W 132.167 mL (ENHERTU) 443.34 mg (5.4 mg/kg/dose 82.1 kg Treatment plan Recorded weight), INTRAVENOUS, Administer over 30 Minutes, ONCE, 1 dose, On Amarilys 07/29/22 at 0900, Immediate use - 07/29/22 Hazardous Chemotherapy Drug: Use appropriate PPE. Administer with 0.2 micron filter. Flush line with D5W before and after administration. Refrigerate - Protect from Light New Bag/Syringe/Bottle 07/29/2022 10:24 AM EST 443.34 mg palonosetron 0.25 mg injection (ALOXI) 0.25 mg, INTRAVENOUS, ONCE, 1 dose, On Amarilys 07/29/22 at 0900, Flush IV line with NS prior to and following administration. Given 07/29/2022 9:30 AM EST 0.25 mg zoledronic xu-sdwmihbr-4.9NaCl 4 mg iv piggyback 100 mL (ZOMETA) 4 mg, INTRAVENOUS, Administer over 15 Minutes, ONCE, 1 dose, On Amarilys 07/29/22 at 1000, Hazardous Potential Reproductive Risk Drug: Use appropriate PPE. New Bag/Syringe/Bottle 07/29/2022 10:03 AM EST 4 mg Inactive Administered Medications - up to 3 most recent administrations Medication Order MAR Action Action Date Dose Rate Site dexAMETHasone 10 mg/NS 50 mL (PYXIS) 10 mg ivpb (DECADRON) 10 mg, INTRAVENOUS, ONCE, 1 dose, On Amarilys 09/09/22 at 1000, Refrigerate. New Bag/Syringe/Bottle 09/09/2022 10:05 AM EDT 10 mg fam-trastuzumab deruxtecan-nxki 465.48 mg in D5W 133.274 mL (ENHERTU) 465.48 mg (5.4 mg/kg/dose 86.2 kg Order-specific weight), INTRAVENOUS, Administer over 30 Minutes, ONCE, 1 dose, On Amarilys 09/09/22 at 1000, exp immediate use (room temp) Hazardous Chemotherapy Drug: Use appropriate PPE. Administer with 0.2 micron filter. Flush line with D5W before and after administration. Refrigerate - Protect from Light New Bag/Syringe/Bottle 09/09/2022 10:35 AM EDT 465.48 mg palonosetron 0.25 mg injection (ALOXI) 0.25 mg, INTRAVENOUS, ONCE, 1 dose, On Amarilys 09/09/22 at 1000, Flush IV line with NS prior to and following administration. Given 09/09/2022 10:05 AM EDT 0.25 mg Inactive Administered Medications - up to 3 most recent administrations Medication Order MAR Action Action Date Dose Rate Site dexAMETHasone 10 mg/NS 50 mL (PYXIS) 10 mg ivpb (DECADRON) 10 mg, INTRAVENOUS, ONCE, 1 dose, On Amarilys 09/30/22 at 1300, Refrigerate. New Bag/Syringe/Bottle 09/30/2022 12:56 PM EDT 10 mg fam-trastuzumab deruxtecan-nxki 465.48 mg in D5W 133.274 mL (ENHERTU) 465.48 mg (5.4 mg/kg/dose 86.2 kg Order-specific weight), INTRAVENOUS, Administer over 30 Minutes, ONCE, 1 dose, On Amarilys 09/30/22 at 1300, exp immediate use (room temp) Hazardous Chemotherapy Drug: Use appropriate PPE. Administer with 0.2 micron filter. Flush line with D5W before and after administration. Refrigerate - Protect from Light New Bag/Syringe/Bottle 09/30/2022 1:16 PM EDT 465.48 mg palonosetron 0.25 mg injection (ALOXI) 0.25 mg, INTRAVENOUS, ONCE, 1 dose, On Amarilys 09/30/22 at 1300, Flush IV line with NS prior to and following administration. Given 09/30/2022 12:57 PM EDT 0.25 mg Inactive Administered Medications - up to 3 most recent administrations Medication Order MAR Action Action Date Dose Rate Site dexAMETHasone 10 mg/NS 50 mL (PYXIS) 10 mg ivpb (DECADRON) 10 mg, INTRAVENOUS, ONCE, 1 dose, On Amarilys 11/11/22 at 0830, Refrigerate. New Bag/Syringe/Bottle 11/11/2022 8:22 AM EDT 10 mg fam-trastuzumab deruxtecan-nxki 465.48 mg in D5W 133.274 mL (ENHERTU) 465.48 mg (5.4 mg/kg/dose 86.2 kg Order-specific weight), INTRAVENOUS, Administer over 30 Minutes, ONCE, 1 dose, On Amarilys 11/11/22 at 0830, exp immediate use (room temp) Hazardous Chemotherapy Drug: Use appropriate PPE. Administer with 0.2 micron filter. Flush line with D5W before and after administration. Refrigerate - Protect from Light New Bag/Syringe/Bottle 11/11/2022 8:50 AM EDT 465.48 mg palonosetron 0.25 mg injection (ALOXI) 0.25 mg, INTRAVENOUS, ONCE, 1 dose, On Amarilys 11/11/22 at 0830, Flush IV line with NS prior to and following administration. Given 11/11/2022 8:22 AM EDT 0.25 mg Inactive Administered Medications - up to 3 most recent administrations Medication Order MAR Action Action Date Dose Rate Site dexAMETHasone 10 mg/NS 50 mL (PYXIS) 10 mg ivpb (DECADRON) 10 mg, INTRAVENOUS, Administer over 15 Minutes, ONCE, 1 dose, On Amarilys 12/02/22 at 0930, Refrigerate. New Bag/Syringe/Bottle 12/02/2022 9:25 AM EDT 10 mg fam-trastuzumab deruxtecan-nxki 465.48 mg in D5W 133.274 mL (ENHERTU) 465.48 mg (5.4 mg/kg/dose 86.2 kg Order-specific weight), INTRAVENOUS, Administer over 30 Minutes, ONCE, 1 dose, On Amarilys 12/02/22 at 0930, exp immediate use (room temp) Hazardous Chemotherapy Drug: Use appropriate PPE. Administer with 0.2 micron filter. Flush line with D5W before and after administration. Refrigerate - Protect from Light New Bag/Syringe/Bottle 12/02/2022 9:49 AM EDT 465.48 mg palonosetron 0.25 mg injection (ALOXI) 0.25 mg, INTRAVENOUS, ONCE, 1 dose, On Amarilys 12/02/22 at 0930, Flush IV line with NS prior to and following administration. Given 12/02/2022 9:22 AM EDT 0.25 mg Inactive Administered Medications - up to 3 most recent administrations Medication Order MAR Action Action Date Dose Rate Site dexAMETHasone 10 mg/NS 50 mL (PYXIS) 10 mg ivpb (DECADRON) 10 mg, INTRAVENOUS, Administer over 15 Minutes, ONCE, 1 dose, On Amarilys 01/13/23 at 1300, Refrigerate. New Bag/Syringe/Bottle 01/13/2023 1:18 PM EDT 10 mg fam-trastuzumab deruxtecan-nxki 465.48 mg in D5W 133.274 mL (ENHERTU) 465.48 mg (5.4 mg/kg/dose 86.2 kg Order-specific weight), INTRAVENOUS, Administer over 30 Minutes, ONCE, 1 dose, On [facility] 01/13/23 at 1300, exp 1630 01/13/23 (room temp) Hazardous Chemotherapy Drug: Use appropriate PPE. Administer with 0.2 micron filter. Flush line with D5W before and after administration. Refrigerate - Protect from Light New Bag/Syringe/Bottle 01/13/2023 1:56 PM EDT 465.48 mg palonosetron 0.25 mg injection (ALOXI) 0.25 mg, INTRAVENOUS, ONCE, 1 dose, On Amarilys 01/13/23 at 1300, Flush IV line with NS prior to and following administration. Given 01/13/2023 1:19 PM EDT 0.25 mg zoledronic ev-vuiazdol-6.9NaCl 4 mg iv piggyback 100 mL (ZOMETA) 4 mg, INTRAVENOUS, Administer over 15 Minutes, ONCE, 1 dose, On Amarilys 01/13/23 at 1330, Hazardous Potential Reproductive Risk Drug: Use appropriate PPE. New Bag/Syringe/Bottle 01/13/2023 1:38 PM EDT 4 mg Inactive Administered Medications - up to 3 most recent administrations Medication Order MAR Action Action Date Dose Rate Site dexAMETHasone 10 mg in NaCl 0.9% 50 mL (DECADRON) 10 mg, INTRAVENOUS, Administer over 15 Minutes, ONCE, 1 dose, On Amarilys 03/17/23 at 1330, Refrigerate. New Bag/Syringe/Bottle 03/17/2023 1:49 PM EDT 10 mg fam-trastuzumab deruxtecan-nxki 465.48 mg in D5W 133.274 mL (ENHERTU) 465.48 mg (5.4 mg/kg/dose 86.2 kg Order-specific weight), INTRAVENOUS, Administer over 30 Minutes, ONCE, 1 dose, On Amarilys 03/17/23 at 1330, exp 1600 03/17/23 (room temp). Hazardous Chemotherapy Drug: Use appropriate PPE. Administer with 0.2 micron filter. Flush line with D5W before and after administration. Refrigerate - Protect from Light New Bag/Syringe/Bottle 03/17/2023 2:08 PM EDT 465.48 mg palonosetron 0.25 mg injection (ALOXI) 0.25 mg, INTRAVENOUS, ONCE, 1 dose, On Amarilys 03/17/23 at 1330, Flush IV line with NS prior to and following administration. Given 03/17/2023 1:49 PM EDT 0.25 mg Inactive Administered Medications - up to 3 most recent administrations Medication Order MAR Action Action Date Dose Rate Site dexAMETHasone 10 mg in NaCl 0.9% 50 mL (DECADRON) 10 mg, INTRAVENOUS, Administer over 15 Minutes, ONCE, 1 dose, On Tue04/27/23 at 1000, Refrigerate. New Bag/Syringe/Bottle 04/27/2023 9:49 AM EST 10 mg fam-trastuzumab deruxtecan-nxki 465.48 mg in D5W 133.274 mL (ENHERTU) 465.48 mg (5.4 mg/kg/dose 86.2 kg Order-specific weight), INTRAVENOUS, Administer over 30 Minutes, ONCE, 1 dose, On Tue04/27/23 at 1000, exp 1400 04/27/23 (room temp) Hazardous Chemotherapy Drug: Use appropriate PPE. Administer with 0.2 micron filter. Flush line with D5W before and after administration. Refrigerate - Protect from Light New Bag/Syringe/Bottle 04/27/2023 10:21 AM EST 465.48 mg palonosetron 0.25 mg injection (ALOXI) 0.25 mg, INTRAVENOUS, ONCE, 1 dose, On Tue04/27/23 at 1000, Flush IV line with NS prior to and following administration. 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) Malignant neoplasm of right breast in female, estrogen receptor positive, unspecified site of breast (HCC) Procedures CT CHEST W IVCON DIAGNOSTIC COMPUTED TOMOGRAPHY THORAX W/CONTRAST Caity Cote, EREN.TERRITORY DEVELOPMENT MANAGER [address] [place] [address] Ct Imaging Referral ID Status Reason Start Date Expiration Date Visits Requested Visits Authorized [id number] Authorized Auto-Generat ed Referral 10/21/2021 11/20/2022 1 1 Specialty Diagnoses / Procedures Referred By Contac t Referred To Contact CT IMAGING Diagnoses Malignant neoplasm of lower-inner quadrant of right breast of female, estrogen receptor positive (HCC) Bone metastases (HCC) Skin, 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) Malignant neoplasm of right breast in female, estrogen receptor positive, unspecified site of breast (HCC) Procedures CT ABD/PEL W IVCON CT ABD & PELVIS W/CONTRAST Caity Cote, EREN.TERRITORY DEVELOPMENT MANAGER [address] [place] [address] Ct Imaging Referral ID Status Reason Start Date Expiration Date Visits Requested Visits Authorized [id number] Authorized Auto-Generat ed Referral 10/21/2021 11/20/2022 1 1 Specialty Diagnoses / Procedures Referred By Contac t [facility] Diagnoses Malignant neoplasm of lower-inner quadrant of right breast of female, estrogen receptor positive (HCC) Bone metastases (HCC) Skin, 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) Procedures ECHO ECHO TTHRC R-T 2D W/WOM-MODE COMPL SPEC&COLR D Caity Cote APRN.TERRITORY DEVELOPMENT MANAGER [address] [place] [address] [facility] [address] [place] [address] Referral ID Status Reason Start Date Expiration Date Visits Requested Visits Authorized [id number] Pending Review Auto-Generat ed Referral 10/21/2021 10/21/2022 1 1 Referral ID Status Reason Start Date Expiration Date V isits Requested Visits Authorized [id number] Closed Auto-Generate d Referral 10/21/2021 11/20/2022 1 1 Referral ID Status Reason Start Date Expiration Date V isits Requested Visits Authorized [id number] Closed Auto-Generate d Referral 10/21/2021 11/20/2022 1 1 Specialty Diagnoses / Procedures Referred By Contac t Referred To Contact CT IMAGING Diagnoses Malignant neoplasm of lower-inner quadrant of right breast of female, estrogen receptor positive (HCC) Bone metastases (HCC) Malignant neoplasm metastatic to both lungs (HCC) Skin, 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) Procedures CT CHEST W IVCON DIAGNOSTIC COMPUTED TOMOGRAPHY THORAX W/CONTRAST Caity Cote APRN.TERRITORY DEVELOPMENT MANAGER [address] [place] [address] Ct Imaging Referral ID Status Reason Start Date Expiration Date Visits Requested Visits Authorized [id number] Authorized Auto-Generat ed Referral 12/23/2021 01/22/2023 1 1 Specialty Diagnoses / Procedures Referred By Contac t Referred To Contact CT IMAGING Diagnoses Malignant neoplasm of lower-inner quadrant of right breast of female, estrogen receptor positive (HCC) Bone metastases (HCC) Malignant neoplasm metastatic to both lungs (HCC) Skin, 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) Procedures CT ABD/PEL W IVCON CT ABD & PELVIS W/CONTRAST Caity Cote, EREN.TERRITORY DEVELOPMENT MANAGER [address] [place] [address] Ct Imaging Referral ID Status Reason Start Date Expiration Date Visits Requested Visits Authorized [id number] Authorized Auto-Generat ed Referral 12/23/2021 01/22/2023 1 1 Referral ID Status Reason Start Date Expiration Date V isits Requested Visits Authorized [id number] Closed Auto-Generate d Referral 12/23/2021 01/22/2023 1 1 Referral ID Status Reason Start Date Expiration Date V isits Requested Visits Authorized [id number] Closed Auto-Generate d Referral 12/23/2021 01/22/2023 1 1 Specialty Diagnoses / Procedures Referred By Contac t Referred To Contact CT IMAGING Diagnoses Malignant neoplasm of lower-inner quadrant of right breast of female, estrogen receptor positive (HCC) Bone metastases (HCC) Malignant neoplasm metastatic to both lungs (HCC) Procedures CT CHEST W IVCON DIAGNOSTIC COMPUTED TOMOGRAPHY THORAX W/CONTRAST Rip Rivers, DO [address] [place] [address] Ct Imaging Referral ID Status Reason Start Date Expiration Date Visits Requested Visits Authorized [id number] Authorized Auto-Generat ed Referral 07/06/2022 08/05/2023 1 1 Specialty Diagnoses / Procedures Referred By Contac t Referred To Contact CT IMAGING Diagnoses Malignant neoplasm of lower-inner quadrant of right breast of female, estrogen receptor positive (HCC) Bone metastases (HCC) Malignant neoplasm metastatic to both lungs (HCC) Procedures CT ABD/PEL W IVCON CT ABD & PELVIS W/CONTRAST Rip Rivers, DO [address] [place] [address] Ct Imaging Referral ID Status Reason Start Date Expiration Date Visits Requested Visits Authorized [id number] Authorized Auto-Generat ed Referral 07/06/2022 08/05/2023 1 1 Specialty Diagnoses / Procedures Referred By Contac t Referred To Contact [facility] Diagnoses Encounter for screening mammogram for malignant neoplasm of breast Procedures MAXIM SCREENING W OMI SCREENING DIGITAL BREAST TOMOSYNTHESIS BI SCREENING MAMMOGRAPHY BI 2-VIEW BREAST INC CAD Rip Rivers, DO [address] [place] [address] Br Imaging [address] [place] [address] Referral ID Status Reason Start Date Expiration Date Visits Requested Visits Authorized [id number] Authorized Auto-Generat ed Referral 07/06/2022 08/05/2023 1 1 Referral ID Status Reason Start Date Expiration Date Visits Requested Visits Authorized [id number] Pending Review Auto-Generat ed Referral 07/30/2022 08/29/2023 1 1 Referral ID Status Reason Start Date Expiration Date Visits Requested Visits Authorized [id number] Pending Review Auto-Generat ed Referral 07/30/2022 08/29/2023 1 1 Specialty Diagnoses / Procedures Referred By Contac t Referred To Contact Diagnoses Malignant neoplasm metastatic to left lung (HCC) Procedures CT SIM PLANNING RADIATION ONCOLOGY THER RAD SIMULAJ-AIDED FIELD SETTING COMPLEX Meenu Garay MD, [address] [place] [address] Referral ID Status Reason Start Date Expiration Date Visits Requested Visits Authorized [id number] Pending Review PCP Requested Referral 02/09/2023 05/09/2023 1 1 Specialty Diagnoses / Procedures Referred By Contac t Referred To Contact CT IMAGING Diagnoses Malignant neoplasm metastatic to bone (HCC) Procedures CT CHEST WO IVCON DIAGNOSTIC COMPUTED TOMOGRAPHY THORAX W/O CNTRST Rip Rivers DO [address] [place] [address] [place] [address] Referral ID Status Reason Start Date Expiration Date Visits Requested Visits Authorized [id number] Authorized Auto-Generat ed Referral 02/23/2023 03/24/2024 1 1 Specialty Diagnoses / Procedures Referred By Contac t Referred To Contact CT IMAGING Diagnoses Malignant neoplasm metastatic to left lung (HCC) Procedures CT CHEST WO IVCON DIAGNOSTIC COMPUTED TOMOGRAPHY THORAX W/O CNTRST Meenu Garay MD, [address] [facility] [place] [address] [place] [address] Referral ID Status Reason Start Date Expiration Date Visits Requested Visits Authorized [id number] Authorized Auto-Generat ed Referral 04/28/2024 1 1 Referral ID Status Reason Start Date Expiration Date V isits Requested Visits Authorized [id number] Closed Auto-Generate d Referral 02/23/2023 03/24/2024 1 1 Specialty Diagnoses / Procedures Referred By Contac t Referred To Contact CT IMAGING Diagnoses Malignant neoplasm of lower-inner quadrant of right breast of female, estrogen receptor positive (HCC) Bone metastases Malignant neoplasm metastatic to both lungs (HCC) Procedures CT CHEST W IVCON DIAGNOSTIC COMPUTED TOMOGRAPHY THORAX W/CONTRAST Rip Rivers, DO [address] [facility] [place] [address] [place] [address] Referral ID Status Reason Start Date Expiration Date V isits Requested Visits Authorized [id number] Closed Auto-Generate d Referral 07/30/2022 08/29/2023 1 1 Specialty Diagnoses / Procedures Referred By Contac t Referred To Contact CT IMAGING Diagnoses Malignant neoplasm of lower-inner quadrant of right breast of female, estrogen receptor positive (HCC) Bone metastases Malignant neoplasm metastatic to both lungs (HCC) Procedures CT ABD/PEL W IVCON CT ABD & PELVIS W/CONTRAST Rip Rivers, DO [address] [facility] [place] [address] [place] [address] Referral ID Status Reason Start Date Expiration Date V isits Requested Visits Authorized [id number] Closed Auto-Generate d Referral 07/30/2022 08/29/2023 1 1 Specialty Diagnoses / Procedures [facility]erred By [facility] Referred To Contact CT IM[facility]ING Diagnoses Malignant neoplasm of lower-inner quadrant of right breast of female, estrogen receptor positive (HCC) 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) Malignant neoplasm metastatic to both lungs (HCC) Procedures CT CHEST W IVCON DIAGNOSTIC COMPUTED TOMOGRAPHY THORAX W/CONTRAST Rip Rivers, DO [address] [facility] [place] [address] [place] [address] Referral ID Status Reason Start Date Expiration Date V isits Requested Visits Authorized [id number] Closed Auto-Generate d Referral 12/22/2022 01/21/2024 1 1 Specialty Diagnoses / Procedures Referred By [facility] Referred To Contact CT IMAGING Diagnoses Malignant neoplasm of lower-inner quadrant of right breast of female, estrogen receptor positive (HCC) 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) Malignant neoplasm metastatic to both lungs (HCC) Procedures CT ABD/PEL W IVCON CT ABD & PELVIS W/CONTRAST Rip Rivers, DO [address] [facility] [address] [place] [place] [address] [place] [address] Referral ID Status Reason Start Date Expiration Date V isits Requested Visits Authorized [id number] Closed Auto-Generate d Referral 12/22/2022 01/21/2024 1 1 Referral ID Status Reason Start Date Expiration Date V isits Requested Visits Authorized [id number] Closed Auto-Generate d Referral 07/06/2022 08/05/2023 1 1 Referral ID Status Reason Start Date Expiration Date V isits Requested Visits Authorized [id number] Closed Auto-Generate d Referral 07/06/2022 08/05/2023 1 1 Specialty Diagnoses / Procedures Referred By Contac t Referred To Contact CT IMAGING Diagnoses Malignant neoplasm of lower-inner quadrant of right breast of female, estrogen receptor positive (HCC) Bone metastases Procedures CT CHEST W IVCON DIAGNOSTIC COMPUTED TOMOGRAPHY THORAX W/CONTRAST Caity Cote, [employer].TERRITORY DEVELOPMENT MANAGER [address] [place] [address] [place] [address] Referral ID Status Reason Start Date Expiration Date V isits Requested Visits Authorized [id number] Closed Auto-Generate d Referral 04/14/2022 05/14/2023 1 1 Specialty Diagnoses / Procedures Referred By Contac t Referred To Contact CT IMAGING Diagnoses Malignant neoplasm of lower-inner quadrant of right breast of female, estrogen receptor positive (HCC) Bone metastases Procedures CT ABD/PEL W IVCON CT ABD & PELVIS W/CONTRAST Caity Cote, [employer].TERRITORY DEVELOPMENT MANAGER [address] [place] [address] [place] [address] Referral ID Status Reason Start Date Expiration Date V isits Requested Visits Authorized [id number] Closed Auto-Generate d Referral 04/14/2022 05/14/2023 1 1 Specialty Diagnoses / Procedures Referred By Contac t Referred To Contact Diagnoses Secondary malignant neoplasm of right lung (HCC) Procedures CT SIM PLANNING RADIATION ONCOLOGY THER RAD SIMULAJ-AIDED FIELD SETTING COMPLEX Meenu Garay MD [address] [place] [address] Referral ID Status Reason Start Date Expiration Date Visits Requested Visits Authorized [id number] Pending Review PCP Requested Referral 09/27/2023 12/11/2023 1 1 Specialty Diagnoses / Procedures Referred By Contac t Referred To Contact CT IMAGING Diagnoses Secondary malignant neoplasm of right lung (HCC) Procedures CT CHEST WO IVCON DIAGNOSTIC COMPUTED TOMOGRAPHY THORAX W/O CNTRST Meenu Garay MD [address] [place] [address] [place] [address] Referral ID Status Reason Start Date Expiration Date Visits Requested Visits Authorized [id number] Pending Review Auto-Generat ed Referral 01/11/2024 11/26/2024 1 1 Specialty Diagnoses / Procedures Referred By Contac t Referred To Contact CT IMAGING Diagnoses Malignant neoplasm of lower-inner quadrant of right breast of female, estrogen receptor positive (HCC) Malignant neoplasm metastatic to lung, unspecified laterality (HCC) Malignant neoplasm metastatic to bone (HCC) 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) Procedures CT CHEST W IVCON DIAGNOSTIC COMPUTED TOMOGRAPHY THORAX W/CONTRAST Caity Cote APRN.TERRITORY DEVELOPMENT MANAGER [address] [place] [address] [place] [address] Referral ID Status Reason Start Date Expiration Date Visits Requested Visits Authorized [id number] Authorized Auto-Generat ed Referral 12/14/2023 01/12/2025 1 1 Specialty Diagnoses / Procedures Referred By Contac t Referred To Contact CT IMAGING Diagnoses Malignant neoplasm of lower-inner quadrant of right breast of female, estrogen receptor positive (HCC) Malignant neoplasm metastatic to lung, unspecified laterality (HCC) Malignant neoplasm metastatic to bone (HCC) 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) Procedures CT ABD/PEL W IVCON CT ABD & PELVIS W/CONTRAST Caity Cote APRN.TERRITORY DEVELOPMENT MANAGER [address] [place] [address] [place] [address] Referral ID Status Reason Start Date Expiration Date Visits Requested Visits Authorized [id number] Authorized Auto-Generat ed Referral 12/14/2023 01/12/2025 1 1 Specialty Diagnoses / Procedures Referred By [facility] Referred To Contact CT IMAGING Diagnoses Malignant neoplasm of lower-inner quadrant of right breast of female, estrogen receptor positive (HCC) Orthopnea Interstitial pulmonary disease (HCC) Procedures CT CHEST WO IVCON DIAGNOSTIC COMPUTED TOMOGRAPHY THORAX W/O CNTRST Rip Rivers, DO [address] [place] [address] [place] [address] Referral ID Status Reason Start Date Expiration Date V isits Requested Visits Authorized [id number] Closed Auto-Generate d Referral 01/04/2024 02/02/2025 1 1 Specialty Diagnoses / Procedures Referred By [facility] Referred To Contact CT IMAGING Diagnoses Malignant neoplasm of lower-inner quadrant of right breast of female, estrogen receptor positive (HCC) Malignant neoplasm metastatic to bone (HCC) Malignant neoplasm metastatic to both lungs (HCC) Procedures CT CHEST W IVCON DIAGNOSTIC COMPUTED TOMOGRAPHY THORAX W/CONTRAST Rip Rivers, DO [address] [facility] [place] [address] [place] [address] Referral ID Status Reason Start Date Expiration Date Visits Requested Visits Authorized [id number] New Request Auto-Generat ed Referral 4 04/20/2025 1 1 Specialty Diagnoses / Procedures [facility] Referred To Contact CT IMAGING Diagnoses Malignant neoplasm of lower-inner quadrant of right breast of female, estrogen receptor positive (HCC) Malignant neoplasm metastatic to bone (HCC) Malignant neoplasm metastatic to both lungs (HCC) Procedures CT ABD/PEL W IVCON CT ABD & PELVIS W/CONTRAST Rip Rivers, DO [address] [place] [address] [place] [address] Referral ID Status Reason Start Date Expiration Date Visits Requested Visits Authorized [id number] New Request Auto-Generat ed Referral 04/20/2025 1 1 Chief Complaint and Reason for Visit Chief Complaint Cardiomyopathy due t o drug and external agent 6 M FU BONE METS BREAST CA Reason for Visit Non-ischemic cardiom yopathy Chief Complaint 6 M FU BONE METS BREAST CA METS TO THE BONE Reason for Visit Non-ischemic cardiom yopathy Chief Complaint METS TO THE BONE 6 M FU RT BREAST CANCER, BONE METS, MONITOR DRUG THERAPY Reason for Visit Breast cancer, right breast Chief Complaint 6 M FU RT BREAST CANCER, BONE METS, MONITOR DRUG THERAPY BONE METS Reason for Visit Breast cancer, right breast Chief Complaint HCC 6 M FU BREAST CANCER Reason for Visit Non-ischemic cardiom yopathy Breast cancer, right breast Chief Complaint HCC 6 M FU BREAST CANCER DYSPNEA Reason for Visit Non-ischemic cardiom yopathy Breast cancer, right breast Acute dyspnea Breast cancer metastasized to lung Elevated d-dimer Chief Complaint HCC 6 M FU BREAST CANCER DYSPNEA DYSPNEA Reason for Visit Non-ischemic cardiom yopathy Breast cancer, right breast Acute dyspnea Breast cancer metastasized to lung Elevated d-dimer Chief Complaint DYSPNEA DYSPNEA LUNG METS, MONITOR CARDIOTOXIC DRUG THERAPY 6 M FU Reason for Visit Acute dyspnea Non-ischemic cardiomyopathy Breast cancer, right breast Chief Complaint LUNG METS, MONITOR C ARDIOTOXIC DRUG THERAPY 6 M FU DIARRHEA, GI BLEED Reason for Visit Non-ischemic cardiom yopathy Breast cancer, right breast Chief Complaint Admit Date Other senior living (current) drug therapy A pril 2024 1:41pm Family History No Family History Records Found Relationship Condition Age at Onset Recorded Date/T yaa sister Atrial fibrillation Unknown Coronary artery disease Unknown grandmother Atrial fibrillation Unknown Summary Purpose Additional Source Comments Source Comments (unrecognize d section and content) In the event this informatio n is protected by the Federal Confidentiality of Alcohol and Drug Abuse Patient Records regulations: The Federal rules restrict any use of the information to criminally investigate or prosecute any alcohol or drug abuse patient.[facility] the event this information is protected by the Federal Confidentiality of Alcohol and Drug Abuse Patient Records regulations: The Federal rules restrict any use of the information to criminally investigate or prosecute any alcohol or drug abuse patient.[facility] HospitalIn the event this information is protected by the Federal Confidentiality of Alcohol and Drug Abuse Patient Records regulations: The Federal rules restrict any use of the information to criminally investigate or prosecute any alcohol or drug abuse patient.[facility]In the event this information is protected by the Federal Confidentiality of Alcohol and Drug Abuse Patient Records regulations: The Federal rules restrict any use of the information to criminally investigate or prosecute any alcohol or drug abuse patient.[facility] HospitalIn the event this information is protected by the Federal Confidentiality of Alcohol and Drug Abuse Patient Records regulations: The Federal rules restrict any use of the information to criminally investigate or prosecute any alcohol or drug abuse patient.[facility] HospitalIn the event this information is protected by the Federal Confidentiality of Alcohol and Drug Abuse Patient Records regulations: The Federal rules restrict any use of the information to criminally investigate or prosecute any alcohol or drug abuse patient.[facility] HospitalIn the event this information is protected by the Federal Confidentiality of Alcohol and Drug Abuse Patient Records regulations: The Federal rules restrict any use of the information to criminally investigate or prosecute any alcohol or drug abuse patient.[facility] HospitalIn the event this information is protected by the Federal Confidentiality of Alcohol and Drug Abuse Patient Records regulations: The Federal rules restrict any use of the information to criminally investigate or prosecute any alcohol or drug abuse patient.[facility] HospitalIn the event this information is protected by the Federal Confidentiality of Alcohol and Drug Abuse Patient Records regulations: The Federal rules restrict any use of the information to criminally investigate or prosecute any alcohol or drug abuse patient.[facility] HospitalIn the event this information is protected by the Federal Confidentiality of Alcohol and Drug Abuse Patient Records regulations: The Federal rules restrict any use of the information to criminally investigate or prosecute any alcohol or drug abuse patient.[facility] HospitalIn the event this information is protected by the Federal Confidentiality of Alcohol and Drug Abuse Patient Records regulations: The Federal rules restrict any use of the information to criminally investigate or prosecute any alcohol or drug abuse patient.[facility] HospitalIn the event this information is protected by the Federal Confidentiality of Alcohol and Drug Abuse Patient Records regulations: The Federal rules restrict any use of the information to criminally investigate or prosecute any alcohol or drug abuse patient.[facility] HospitalIn the event this information is protected by the Federal Confidentiality of Alcohol and Drug Abuse Patient Records regulations: The Federal rules restrict any use of the information to criminally investigate or prosecute any alcohol or drug abuse patient.[facility] HospitalIn the event this information is protected by the Federal Confidentiality of Alcohol and Drug Abuse Patient Records regulations: The Federal rules restrict any use of the information to criminally investigate or prosecute any alcohol or drug abuse patient.[facility] HospitalIn the event this information is protected by the Federal Confidentiality of Alcohol and Drug Abuse Patient Records regulations: The Federal rules restrict any use of the information to criminally investigate or prosecute any alcohol or drug abuse patient.[facility] HospitalIn the event this information is protected by the Federal Confidentiality of Alcohol and Drug Abuse Patient Records regulations: The Federal rules restrict any use of the information to criminally investigate or prosecute any alcohol or drug abuse patient.[facility] HospitalIn the event this information is protected by the Federal Confidentiality of Alcohol and Drug Abuse Patient Records regulations: The Federal rules restrict any use of the information to criminally investigate or prosecute any alcohol or drug abuse patient.[facility] HospitalIn the event this information is protected by the Federal Confidentiality of Alcohol and Drug Abuse Patient Records regulations: The Federal rules restrict any use of the information to criminally investigate or prosecute any alcohol or drug abuse patient.[facility] HospitalIn the event this information is protected by the Federal Confidentiality of Alcohol and Drug Abuse Patient Records regulations: The Federal rules restrict any use of the information to criminally investigate or prosecute any alcohol or drug abuse patient.[facility] HospitalIn the event this information is protected by the Federal Confidentiality of Alcohol and Drug Abuse Patient Records regulations: The Federal rules restrict any use of the information to criminally investigate or prosecute any alcohol or drug abuse patient.[facility] HospitalIn the event this information is protected by the Federal Confidentiality of Alcohol and Drug Abuse Patient Records regulations: The Federal rules restrict any use of the information to criminally investigate or prosecute any alcohol or drug abuse patient.[facility] HospitalIn the event this information is protected by the Federal Confidentiality of Alcohol and Drug Abuse Patient Records regulations: The Federal rules restrict any use of the information to criminally investigate or prosecute any alcohol or drug abuse patient.[facility] HospitalIn the event this information is protected by the Federal Confidentiality of Alcohol and Drug Abuse Patient Records regulations: The Federal rules restrict any use of the information to criminally investigate or prosecute any alcohol or drug abuse patient.[facility] HospitalIn the event this information is protected by the Federal Confidentiality of Alcohol and Drug Abuse Patient Records regulations: The Federal rules restrict any use of the information to criminally investigate or prosecute any alcohol or drug abuse patient.[facility] HospitalIn the event this information is protected by the Federal Confidentiality of Alcohol and Drug Abuse Patient Records regulations: The Federal rules restrict any use of the information to criminally investigate or prosecute any alcohol or drug abuse patient.[facility] HospitalIn the event this information is protected by the Federal Confidentiality of Alcohol and Drug Abuse Patient Records regulations: The Federal rules restrict any use of the information to criminally investigate or prosecute any alcohol or drug abuse patient.[facility] HospitalIn the event this information is protected by the Federal Confidentiality of Alcohol and Drug Abuse Patient Records regulations: The Federal rules restrict any use of the information to criminally investigate or prosecute any alcohol or drug abuse patient.[facility] HospitalIn the event this information is protected by the Federal Confidentiality of Alcohol and Drug Abuse Patient Records regulations: The Federal rules restrict any use of the information to criminally investigate or prosecute any alcohol or drug abuse patient.[facility] HospitalIn the event this information is protected by the Federal Confidentiality of Alcohol and Drug Abuse Patient Records regulations: The Federal rules restrict any use of the information to criminally investigate or prosecute any alcohol or drug abuse patient.[facility] HospitalIn the event this information is protected by the Federal Confidentiality of Alcohol and Drug Abuse Patient Records regulations: The Federal rules restrict any use of the information to criminally investigate or prosecute any alcohol or drug abuse patient.[facility] HospitalIn the event this information is protected by the Federal Confidentiality of Alcohol and Drug Abuse Patient Records regulations: The Federal rules restrict any use of the information to criminally investigate or prosecute any alcohol or drug abuse patient.[facility] HospitalIn the event this information is protected by the Federal Confidentiality of Alcohol and Drug Abuse Patient Records regulations: The Federal rules restrict any use of the information to criminally investigate or prosecute any alcohol or drug abuse patient.[facility] HospitalIn the event this information is protected by the Federal Confidentiality of Alcohol and Drug Abuse Patient Records regulations: The Federal rules restrict any use of the information to criminally investigate or prosecute any alcohol or drug abuse patient.[facility] HospitalIn the event this information is protected by the Federal Confidentiality of Alcohol and Drug Abuse Patient Records regulations: The Federal rules restrict any use of the information to criminally investigate or prosecute any alcohol or drug abuse patient.[facility] HospitalIn the event this information is protected by the Federal Confidentiality of Alcohol and Drug Abuse Patient Records regulations: The Federal rules restrict any use of the information to criminally investigate or prosecute any alcohol or drug abuse patient.[facility] HospitalIn the event this information is protected by the Federal Confidentiality of Alcohol and Drug Abuse Patient Records regulations: The Federal rules restrict any use of the information to criminally investigate or prosecute any alcohol or drug abuse patient.[facility] HospitalIn the event this information is protected by the Federal Confidentiality of Alcohol and Drug Abuse Patient Records regulations: The Federal rules restrict any use of the information to criminally investigate or prosecute any alcohol or drug abuse patient.[facility] HospitalIn the event this information is protected by the Federal Confidentiality of Alcohol and Drug Abuse Patient Records regulations: The Federal rules restrict any use of the information to criminally investigate or prosecute any alcohol or drug abuse patient.[facility] HospitalIn the event this information is protected by the Federal Confidentiality of Alcohol and Drug Abuse Patient Records regulations: The Federal rules restrict any use of the information to criminally investigate or prosecute any alcohol or drug abuse patient.[facility] HospitalIn the event this information is protected by the Federal Confidentiality of Alcohol and Drug Abuse Patient Records regulations: The Federal rules restrict any use of the information to criminally investigate or prosecute any alcohol or drug abuse patient.[facility] HospitalIn the event this information is protected by the Federal Confidentiality of Alcohol and Drug Abuse Patient Records regulations: The Federal rules restrict any use of the information to criminally investigate or prosecute any alcohol or drug abuse patient.[facility] HospitalIn the event this information is protected by the Federal Confidentiality of Alcohol and Drug Abuse Patient Records regulations: The Federal rules restrict any use of the information to criminally investigate or prosecute any alcohol or drug abuse patient.[facility] HospitalIn the event this information is protected by the Federal Confidentiality of Alcohol and Drug Abuse Patient Records regulations: The Federal rules restrict any use of the information to criminally investigate or prosecute any alcohol or drug abuse patient.[facility] HospitalIn the event this information is protected by the Federal Confidentiality of Alcohol and Drug Abuse Patient Records regulations: The Federal rules restrict any use of the information to criminally investigate or prosecute any alcohol or drug abuse patient.[facility] HospitalIn the event this information is protected by the Federal Confidentiality of Alcohol and Drug Abuse Patient Records regulations: The Federal rules restrict any use of the information to criminally investigate or prosecute any alcohol or drug abuse patient.[facility] HospitalIn the event this information is protected by the Federal Confidentiality of Alcohol and Drug Abuse Patient Records regulations: The Federal rules restrict any use of the information to criminally investigate or prosecute any alcohol or drug abuse patient.[facility] HospitalIn the event this information is protected by the Federal Confidentiality of Alcohol and Drug Abuse Patient Records regulations: The Federal rules restrict any use of the information to criminally investigate or prosecute any alcohol or drug abuse patient.[facility] HospitalIn the event this information is protected by the Federal Confidentiality of Alcohol and Drug Abuse Patient Records regulations: The Federal rules restrict any use of the information to criminally investigate or prosecute any alcohol or drug abuse patient.[facility] HospitalIn the event this information is protected by the Federal Confidentiality of Alcohol and Drug Abuse Patient Records regulations: The Federal rules restrict any use of the information to criminally investigate or prosecute any alcohol or drug abuse patient.[facility] HospitalIn the event this information is protected by the Federal Confidentiality of Alcohol and Drug Abuse Patient Records regulations: The Federal rules restrict any use of the information to criminally investigate or prosecute any alcohol or drug abuse patient.[facility] HospitalIn the event this information is protected by the Federal Confidentiality of Alcohol and Drug Abuse Patient Records regulations: The Federal rules restrict any use of the information to criminally investigate or prosecute any alcohol or drug abuse patient.[facility] HospitalIn the event this information is protected by the Federal Confidentiality of Alcohol and Drug Abuse Patient Records regulations: The Federal rules restrict any use of the information to criminally investigate or prosecute any alcohol or drug abuse patient.[facility] HospitalIn the event this information is protected by the Federal Confidentiality of Alcohol and Drug Abuse Patient Records regulations: The Federal rules restrict any use of the information to criminally investigate or prosecute any alcohol or drug abuse patient.[facility] HospitalIn the event this information is protected by the Federal Confidentiality of Alcohol and Drug Abuse Patient Records regulations: The Federal rules restrict any use of the information to criminally investigate or prosecute any alcohol or drug abuse patient.[facility] HospitalIn the event this information is protected by the Federal Confidentiality of Alcohol and Drug Abuse Patient Records regulations: The Federal rules restrict any use of the information to criminally investigate or prosecute any alcohol or drug abuse patient.[facility] HospitalIn the event this information is protected by the Federal Confidentiality of Alcohol and Drug Abuse Patient Records regulations: The Federal rules restrict any use of the information to criminally investigate or prosecute any alcohol or drug abuse patient.[facility] HospitalIn the event this information is protected by the Federal Confidentiality of Alcohol and Drug Abuse Patient Records regulations: The Federal rules restrict any use of the information to criminally investigate or prosecute any alcohol or drug abuse patient.[facility] HospitalIn the event this information is protected by the Federal Confidentiality of Alcohol and Drug Abuse Patient Records regulations: The Federal rules restrict any use of the information to criminally investigate or prosecute any alcohol or drug abuse patient.[facility] HospitalIn the event this information is protected by the Federal Confidentiality of Alcohol and Drug Abuse Patient Records regulations: The Federal rules restrict any use of the information to criminally investigate or prosecute any alcohol or drug abuse patient.[facility] HospitalIn the event this information is protected by the Federal Confidentiality of Alcohol and Drug Abuse Patient Records regulations: The Federal rules restrict any use of the information to criminally investigate or prosecute any alcohol or drug abuse patient.[facility] HospitalIn the event this information is protected by the Federal Confidentiality of Alcohol and Drug Abuse Patient Records regulations: The Federal rules restrict any use of the information to criminally investigate or prosecute any alcohol or drug abuse patient.[facility] HospitalIn the event this information is protected by the Federal Confidentiality of Alcohol and Drug Abuse Patient Records regulations: The Federal rules restrict any use of the information to criminally investigate or prosecute any alcohol or drug abuse patient.[facility] HospitalIn the event this information is protected by the Federal Confidentiality of Alcohol and Drug Abuse Patient Records regulations: The Federal rules restrict any use of the information to criminally investigate or prosecute any alcohol or drug abuse patient.[facility] HospitalIn the event this information is protected by the Federal Confidentiality of Alcohol and Drug Abuse Patient Records regulations: The Federal rules restrict any use of the information to criminally investigate or prosecute any alcohol or drug abuse patient.[facility] HospitalIn the event this information is protected by the Federal Confidentiality of Alcohol and Drug Abuse Patient Records regulations: The Federal rules restrict any use of the information to criminally investigate or prosecute any alcohol or drug abuse patient.[facility] HospitalIn the event this information is protected by the Federal Confidentiality of Alcohol and Drug Abuse Patient Records regulations: The Federal rules restrict any use of the information to criminally investigate or prosecute any alcohol or drug abuse patient.[facility] HospitalIn the event this information is protected by the Federal Confidentiality of Alcohol and Drug Abuse Patient Records regulations: The Federal rules restrict any use of the information to criminally investigate or prosecute any alcohol or drug abuse patient.[facility] HospitalIn the event this information is protected by the Federal Confidentiality of Alcohol and Drug Abuse Patient Records regulations: The Federal rules restrict any use of the information to criminally investigate or prosecute any alcohol or drug abuse patient.[facility] HospitalIn the event this information is protected by the Federal Confidentiality of Alcohol and Drug Abuse Patient Records regulations: The Federal rules restrict any use of the information to criminally investigate or prosecute any alcohol or drug abuse patient.[facility] HospitalIn the event this information is protected by the Federal Confidentiality of Alcohol and Drug Abuse Patient Records regulations: The Federal rules restrict any use of the information to criminally investigate or prosecute any alcohol or drug abuse patient.[facility] HospitalIn the event this information is protected by the Federal Confidentiality of Alcohol and Drug Abuse Patient Records regulations: The Federal rules restrict any use of the information to criminally investigate or prosecute any alcohol or drug abuse patient.[facility] HospitalIn the event this information is protected by the Federal Confidentiality of Alcohol and Drug Abuse Patient Records regulations: The Federal rules restrict any use of the information to criminally investigate or prosecute any alcohol or drug abuse patient.[facility] HospitalIn the event this information is protected by the Federal Confidentiality of Alcohol and Drug Abuse Patient Records regulations: The Federal rules restrict any use of the information to criminally investigate or prosecute any alcohol or drug abuse patient.[facility] HospitalIn the event this information is protected by the Federal Confidentiality of Alcohol and Drug Abuse Patient Records regulations: The Federal rules restrict any use of the information to criminally investigate or prosecute any alcohol or drug abuse patient.[facility] HospitalIn the event this information is protected by the Federal Confidentiality of Alcohol and Drug Abuse Patient Records regulations: The Federal rules restrict any use of the information to criminally investigate or prosecute any alcohol or drug abuse patient.[facility] HospitalIn the event this information is protected by the Federal Confidentiality of Alcohol and Drug Abuse Patient Records regulations: The Federal rules restrict any use of the information to criminally investigate or prosecute any alcohol or drug abuse patient.[facility] HospitalIn the event this information is protected by the Federal Confidentiality of Alcohol and Drug Abuse Patient Records regulations: The Federal rules restrict any use of the information to criminally investigate or prosecute any alcohol or drug abuse patient.[facility] HospitalIn the event this information is protected by the Federal Confidentiality of Alcohol and Drug Abuse Patient Records regulations: The Federal rules restrict any use of the information to criminally investigate or prosecute any alcohol or drug abuse patient.[facility] HospitalIn the event this information is protected by the Federal Confidentiality of Alcohol and Drug Abuse Patient Records regulations: The Federal rules restrict any use of the information to criminally investigate or prosecute any alcohol or drug abuse patient.[facility] HospitalIn the event this information is protected by the Federal Confidentiality of Alcohol and Drug Abuse Patient Records regulations: The Federal rules restrict any use of the information to criminally investigate or prosecute any alcohol or drug abuse patient.[facility] HospitalIn the event this information is protected by the Federal Confidentiality of Alcohol and Drug Abuse Patient Records regulations: The Federal rules restrict any use of the information to criminally investigate or prosecute any alcohol or drug abuse patient.[facility] HospitalIn the event this information is protected by the Federal Confidentiality of Alcohol and Drug Abuse Patient Records regulations: The Federal rules restrict any use of the information to criminally investigate or prosecute any alcohol or drug abuse patient.[facility] HospitalIn the event this information is protected by the Federal Confidentiality of Alcohol and Drug Abuse Patient Records regulations: The Federal rules restrict any use of the information to criminally investigate or prosecute any alcohol or drug abuse patient.[facility] HospitalIn the event this information is protected by the Federal Confidentiality of Alcohol and Drug Abuse Patient Records regulations: The Federal rules restrict any use of the information to criminally investigate or prosecute any alcohol or drug abuse patient.[facility] HospitalIn the event this information is protected by the Federal Confidentiality of Alcohol and Drug Abuse Patient Records regulations: The Federal rules restrict any use of the information to criminally investigate or prosecute any alcohol or drug abuse patient.[facility] HospitalIn the event this information is protected by the Federal Confidentiality of Alcohol and Drug Abuse Patient Records regulations: The Federal rules restrict any use of the information to criminally investigate or prosecute any alcohol or drug abuse patient.[facility] HospitalIn the event this information is protected by the Federal Confidentiality of Alcohol and Drug Abuse Patient Records regulations: The Federal rules restrict any use of the information to criminally investigate or prosecute any alcohol or drug abuse patient.[facility] HospitalIn the event this information is protected by the Federal Confidentiality of Alcohol and Drug Abuse Patient Records regulations: The Federal rules restrict any use of the information to criminally investigate or prosecute any alcohol or drug abuse patient.[facility] HospitalIn the event this information is protected by the Federal Confidentiality of Alcohol and Drug Abuse Patient Records regulations: The Federal rules restrict any use of the information to criminally investigate or prosecute any alcohol or drug abuse patient.[facility] HospitalIn the event this information is protected by the Federal Confidentiality of Alcohol and Drug Abuse Patient Records regulations: The Federal rules restrict any use of the information to criminally investigate or prosecute any alcohol or drug abuse patient.[facility] HospitalIn the event this information is protected by the Federal Confidentiality of Alcohol and Drug Abuse Patient Records regulations: The Federal rules restrict any use of the information to criminally investigate or prosecute any alcohol or drug abuse patient.[facility] HospitalIn the event this information is protected by the Federal Confidentiality of Alcohol and Drug Abuse Patient Records regulations: The Federal rules restrict any use of the information to criminally investigate or prosecute any alcohol or drug abuse patient.[facility] HospitalIn the event this information is protected by the Federal Confidentiality of Alcohol and Drug Abuse Patient Records regulations: The Federal rules restrict any use of the information to criminally investigate or prosecute any alcohol or drug abuse patient.[facility] HospitalIn the event this information is protected by the Federal Confidentiality of Alcohol and Drug Abuse Patient Records regulations: The Federal rules restrict any use of the information to criminally investigate or prosecute any alcohol or drug abuse patient.[facility] HospitalIn the event this information is protected by the Federal Confidentiality of Alcohol and Drug Abuse Patient Records regulations: The Federal rules restrict any use of the information to criminally investigate or prosecute any alcohol or drug abuse patient.[facility] HospitalIn the event this information is protected by the Federal Confidentiality of Alcohol and Drug Abuse Patient Records regulations: The Federal rules restrict any use of the information to criminally investigate or prosecute any alcohol or drug abuse patient.[facility] HospitalIn the event this information is protected by the Federal Confidentiality of Alcohol and Drug Abuse Patient Records regulations: The Federal rules restrict any use of the information to criminally investigate or prosecute any alcohol or drug abuse patient.[facility] HospitalIn the event this information is protected by the Federal Confidentiality of Alcohol and Drug Abuse Patient Records regulations: The Federal rules restrict any use of the information to criminally investigate or prosecute any alcohol or drug abuse patient.[facility] HospitalIn the event this information is protected by the Federal Confidentiality of Alcohol and Drug Abuse Patient Records regulations: The Federal rules restrict any use of the information to criminally investigate or prosecute any alcohol or drug abuse patient.[facility] HospitalIn the event this information is protected by the Federal Confidentiality of Alcohol and Drug Abuse Patient Records regulations: The Federal rules restrict any use of the information to criminally investigate or prosecute any alcohol or drug abuse patient.[facility] HospitalIn the event this information is protected by the Federal Confidentiality of Alcohol and Drug Abuse Patient Records regulations: The Federal rules restrict any use of the information to criminally investigate or prosecute any alcohol or drug abuse patient.[facility] HospitalIn the event this information is protected by the Federal Confidentiality of Alcohol and Drug Abuse Patient Records regulations: The Federal rules restrict any use of the information to criminally investigate or prosecute any alcohol or drug abuse patient.[facility] HospitalIn the event this information is protected by the Federal Confidentiality of Alcohol and Drug Abuse Patient Records regulations: The Federal rules restrict any use of the information to criminally investigate or prosecute any alcohol or drug abuse patient.[facility] HospitalIn the event this information is protected by the Federal Confidentiality of Alcohol and Drug Abuse Patient Records regulations: The Federal rules restrict any use of the information to criminally investigate or prosecute any alcohol or drug abuse patient.[facility] HospitalIn the event this information is protected by the Federal Confidentiality of Alcohol and Drug Abuse Patient Records regulations: The Federal rules restrict any use of the information to criminally investigate or prosecute any alcohol or drug abuse patient.[facility] HospitalIn the event this information is protected by the Federal Confidentiality of Alcohol and Drug Abuse Patient Records regulations: The Federal rules restrict any use of the information to criminally investigate or prosecute any alcohol or drug abuse patient.[facility] HospitalIn the event this information is protected by the Federal Confidentiality of Alcohol and Drug Abuse Patient Records regulations: The Federal rules restrict any use of the information to criminally investigate or prosecute any alcohol or drug abuse patient.[facility] HospitalIn the event this information is protected by the Federal Confidentiality of Alcohol and Drug Abuse Patient Records regulations: The Federal rules restrict any use of the information to criminally investigate or prosecute any alcohol or drug abuse patient.[facility] HospitalIn the event this information is protected by the Federal Confidentiality of Alcohol and Drug Abuse Patient Records regulations: The Federal rules restrict any use of the information to criminally investigate or prosecute any alcohol or drug abuse patient.[facility] HospitalIn the event this information is protected by the Federal Confidentiality of Alcohol and Drug Abuse Patient Records regulations: The Federal rules restrict any use of the information to criminally investigate or prosecute any alcohol or drug abuse patient.[facility] HospitalIn the event this information is protected by the Federal Confidentiality of Alcohol and Drug Abuse Patient Records regulations: The Federal rules restrict any use of the information to criminally investigate or prosecute any alcohol or drug abuse patient.[facility] HospitalIn the event this information is protected by the Federal Confidentiality of Alcohol and Drug Abuse Patient Records regulations: The Federal rules restrict any use of the information to criminally investigate or prosecute any alcohol or drug abuse patient.[facility] HospitalIn the event this information is protected by the Federal Confidentiality of Alcohol and Drug Abuse Patient Records regulations: The Federal rules restrict any use of the information to criminally investigate or prosecute any alcohol or drug abuse patient.[facility] HospitalIn the event this information is protected by the Federal Confidentiality of Alcohol and Drug Abuse Patient Records regulations: The Federal rules restrict any use of the information to criminally investigate or prosecute any alcohol or drug abuse patient.[facility] HospitalIn the event this information is protected by the Federal Confidentiality of Alcohol and Drug Abuse Patient Records regulations: The Federal rules restrict any use of the information to criminally investigate or prosecute any alcohol or drug abuse patient.[facility] HospitalIn the event this information is protected by the Federal Confidentiality of Alcohol and Drug Abuse Patient Records regulations: The Federal rules restrict any use of the information to criminally investigate or prosecute any alcohol or drug abuse patient.[facility] HospitalIn the event this information is protected by the Federal Confidentiality of Alcohol and Drug Abuse Patient Records regulations: The Federal rules restrict any use of the information to criminally investigate or prosecute any alcohol or drug abuse patient.[facility] HospitalIn the event this information is protected by the Federal Confidentiality of Alcohol and Drug Abuse Patient Records regulations: The Federal rules restrict any use of the information to criminally investigate or prosecute any alcohol or drug abuse patient.[facility] HospitalIn the event this information is protected by the Federal Confidentiality of Alcohol and Drug Abuse Patient Records regulations: The Federal rules restrict any use of the information to criminally investigate or prosecute any alcohol or drug abuse patient.[facility] HospitalIn the event this information is protected by the Federal Confidentiality of Alcohol and Drug Abuse Patient Records regulations: The Federal rules restrict any use of the information to criminally investigate or prosecute any alcohol or drug abuse patient.[facility] HospitalIn the event this information is protected by the Federal Confidentiality of Alcohol and Drug Abuse Patient Records regulations: The Federal rules restrict any use of the information to criminally investigate or prosecute any alcohol or drug abuse patient.[facility] HospitalIn the event this information is protected by the Federal Confidentiality of Alcohol and Drug Abuse Patient Records regulations: The Federal rules restrict any use of the information to criminally investigate or prosecute any alcohol or drug abuse patient.[facility] HospitalIn the event this information is protected by the Federal Confidentiality of Alcohol and Drug Abuse Patient Records regulations: The Federal rules restrict any use of the information to criminally investigate or prosecute any alcohol or drug abuse patient.[facility] HospitalIn the event this information is protected by the Federal Confidentiality of Alcohol and Drug Abuse Patient Records regulations: The Federal rules restrict any use of the information to criminally investigate or prosecute any alcohol or drug abuse patient.[facility] HospitalIn the event this information is protected by the Federal Confidentiality of Alcohol and Drug Abuse Patient Records regulations: The Federal rules restrict any use of the information to criminally investigate or prosecute any alcohol or drug abuse patient.[facility] HospitalIn the event this information is protected by the Federal Confidentiality of Alcohol and Drug Abuse Patient Records regulations: The Federal rules restrict any use of the information to criminally investigate or prosecute any alcohol or drug abuse patient.[facility] HospitalIn the event this information is protected by the Federal Confidentiality of Alcohol and Drug Abuse Patient Records regulations: The Federal rules restrict any use of the information to criminally investigate or prosecute any alcohol or drug abuse patient.[facility] HospitalIn the event this information is protected by the Federal Confidentiality of Alcohol and Drug Abuse Patient Records regulations: The Federal rules restrict any use of the information to criminally investigate or prosecute any alcohol or drug abuse patient.[facility] HospitalIn the event this information is protected by the Federal Confidentiality of Alcohol and Drug Abuse Patient Records regulations: The Federal rules restrict any use of the information to criminally investigate or prosecute any alcohol or drug abuse patient.[facility] HospitalIn the event this information is protected by the Federal Confidentiality of Alcohol and Drug Abuse Patient Records regulations: The Federal rules restrict any use of the information to criminally investigate or prosecute any alcohol or drug abuse patient.[facility] HospitalIn the event this information is protected by the Federal Confidentiality of Alcohol and Drug Abuse Patient Records regulations: The Federal rules restrict any use of the information to criminally investigate or prosecute any alcohol or drug abuse patient.[facility] HospitalIn the event this information is protected by the Federal Confidentiality of Alcohol and Drug Abuse Patient Records regulations: The Federal rules restrict any use of the information to criminally investigate or prosecute any alcohol or drug abuse patient.[facility] HospitalIn the event this information is protected by the Federal Confidentiality of Alcohol and Drug Abuse Patient Records regulations: The Federal rules restrict any use of the information to criminally investigate or prosecute any alcohol or drug abuse patient.[facility] HospitalIn the event this information is protected by the Federal Confidentiality of Alcohol and Drug Abuse Patient Records regulations: The Federal rules restrict any use of the information to criminally investigate or prosecute any alcohol or drug abuse patient.[facility] HospitalIn the event this information is protected by the Federal Confidentiality of Alcohol and Drug Abuse Patient Records regulations: The Federal rules restrict any use of the information to criminally investigate or prosecute any alcohol or drug abuse patient.[facility] HospitalIn the event this information is protected by the Federal Confidentiality of Alcohol and Drug Abuse Patient Records regulations: The Federal rules restrict any use of the information to criminally investigate or prosecute any alcohol or drug abuse patient.[facility] HospitalIn the event this information is protected by the Federal Confidentiality of Alcohol and Drug Abuse Patient Records regulations: The Federal rules restrict any use of the information to criminally investigate or prosecute any alcohol or drug abuse patient.[facility] HospitalIn the event this information is protected by the Federal Confidentiality of Alcohol and Drug Abuse Patient Records regulations: The Federal rules restrict any use of the information to criminally investigate or prosecute any alcohol or drug abuse patient.[facility] HospitalIn the event this information is protected by the Federal Confidentiality of Alcohol and Drug Abuse Patient Records regulations: The Federal rules restrict any use of the information to criminally investigate or prosecute any alcohol or drug abuse patient.[facility] HospitalIn the event this information is protected by the Federal Confidentiality of Alcohol and Drug Abuse Patient Records regulations: The Federal rules restrict any use of the information to criminally investigate or prosecute any alcohol or drug abuse patient.[facility] HospitalIn the event this information is protected by the Federal Confidentiality of Alcohol and Drug Abuse Patient Records regulations: The Federal rules restrict any use of the information to criminally investigate or prosecute any alcohol or drug abuse patient.[facility] HospitalIn the event this information is protected by the Federal Confidentiality of Alcohol and Drug Abuse Patient Records regulations: The Federal rules restrict any use of the information to criminally investigate or prosecute any alcohol or drug abuse patient.[facility] HospitalIn the event this information is protected by the Federal Confidentiality of Alcohol and Drug Abuse Patient Records regulations: The Federal rules restrict any use of the information to criminally investigate or prosecute any alcohol or drug abuse patient.[facility] HospitalIn the event this information is protected by the Federal Confidentiality of Alcohol and Drug Abuse Patient Records regulations: The Federal rules restrict any use of the information to criminally investigate or prosecute any alcohol or drug abuse patient.[facility] HospitalIn the event this information is protected by the Federal Confidentiality of Alcohol and Drug Abuse Patient Records regulations: The Federal rules restrict any use of the information to criminally investigate or prosecute any alcohol or drug abuse patient.[facility] HospitalIn the event this information is protected by the Federal Confidentiality of Alcohol and Drug Abuse Patient Records regulations: The Federal rules restrict any use of the information to criminally investigate or prosecute any alcohol or drug abuse patient.[facility] HospitalIn the event this information is protected by the Federal Confidentiality of Alcohol and Drug Abuse Patient Records regulations: The Federal rules restrict any use of the information to criminally investigate or prosecute any alcohol or drug abuse patient.[facility] HospitalIn the event this information is protected by the Federal Confidentiality of Alcohol and Drug Abuse Patient Records regulations: The Federal rules restrict any use of the information to criminally investigate or prosecute any alcohol or drug abuse patient.[facility] HospitalIn the event this information is protected by the Federal Confidentiality of Alcohol and Drug Abuse Patient Records regulations: The Federal rules restrict any use of the information to criminally investigate or prosecute any alcohol or drug abuse patient.[facility] HospitalIn the event this information is protected by the Federal Confidentiality of Alcohol and Drug Abuse Patient Records regulations: The Federal rules restrict any use of the information to criminally investigate or prosecute any alcohol or drug abuse patient.[facility] HospitalIn the event this information is protected by the Federal Confidentiality of Alcohol and Drug Abuse Patient Records regulations: The Federal rules restrict any use of the information to criminally investigate or prosecute any alcohol or drug abuse patient.[facility] HospitalIn the event this information is protected by the Federal Confidentiality of Alcohol and Drug Abuse Patient Records regulations: The Federal rules restrict any use of the information to criminally investigate or prosecute any alcohol or drug abuse patient.[facility] HospitalIn the event this information is protected by the Federal Confidentiality of Alcohol and Drug Abuse Patient Records regulations: The Federal rules restrict any use of the information to criminally investigate or prosecute any alcohol or drug abuse patient.[facility] HospitalIn the event this information is protected by the Federal Confidentiality of Alcohol and Drug Abuse Patient Records regulations: The Federal rules restrict any use of the information to criminally investigate or prosecute any alcohol or drug abuse patient.[facility] HospitalIn the event this information is protected by the Federal Confidentiality of Alcohol and Drug Abuse Patient Records regulations: The Federal rules restrict any use of the information to criminally investigate or prosecute any alcohol or drug abuse patient.[facility] HospitalIn the event this information is protected by the Federal Confidentiality of Alcohol and Drug Abuse Patient Records regulations: The Federal rules restrict any use of the information to criminally investigate or prosecute any alcohol or drug abuse patient.[facility] HospitalIn the event this information is protected by the Federal Confidentiality of Alcohol and Drug Abuse Patient Records regulations: The Federal rules restrict any use of the information to criminally investigate or prosecute any alcohol or drug abuse patient.[facility] HospitalIn the event this information is protected by the Federal Confidentiality of Alcohol and Drug Abuse Patient Records regulations: The Federal rules restrict any use of the information to criminally investigate or prosecute any alcohol or drug abuse patient.[facility] HospitalIn the event this information is protected by the Federal Confidentiality of Alcohol and Drug Abuse Patient Records regulations: The Federal rules restrict any use of the information to criminally investigate or prosecute any alcohol or drug abuse patient.[facility] HospitalIn the event this information is protected by the Federal Confidentiality of Alcohol and Drug Abuse Patient Records regulations: The Federal rules restrict any use of the information to criminally investigate or prosecute any alcohol or drug abuse patient.[facility] HospitalIn the event this information is protected by the Federal Confidentiality of Alcohol and Drug Abuse Patient Records regulations: The Federal rules restrict any use of the information to criminally investigate or prosecute any alcohol or drug abuse patient.[facility] HospitalIn the event this information is protected by the Federal Confidentiality of Alcohol and Drug Abuse Patient Records regulations: The Federal rules restrict any use of the information to criminally investigate or prosecute any alcohol or drug abuse patient.[facility] HospitalIn the event this information is protected by the Federal Confidentiality of Alcohol and Drug Abuse Patient Records regulations: The Federal rules restrict any use of the information to criminally investigate or prosecute any alcohol or drug abuse patient.[facility] HospitalIn the event this information is protected by the Federal Confidentiality of Alcohol and Drug Abuse Patient Records regulations: The Federal rules restrict any use of the information to criminally investigate or prosecute any alcohol or drug abuse patient.[facility] HospitalIn the event this information is protected by the Federal Confidentiality of Alcohol and Drug Abuse Patient Records regulations: The Federal rules restrict any use of the information to criminally investigate or prosecute any alcohol or drug abuse patient.[facility] HospitalIn the event this information is protected by the Federal Confidentiality of Alcohol and Drug Abuse Patient Records regulations: The Federal rules restrict any use of the information to criminally investigate or prosecute any alcohol or drug abuse patient.[facility] HospitalIn the event this information is protected by the Federal Confidentiality of Alcohol and Drug Abuse Patient Records regulations: The Federal rules restrict any use of the information to criminally investigate or prosecute any alcohol or drug abuse patient.[facility] HospitalIn the event this information is protected by the Federal Confidentiality of Alcohol and Drug Abuse Patient Records regulations: The Federal rules restrict any use of the information to criminally investigate or prosecute any alcohol or drug abuse patient.[facility] HospitalIn the event this information is protected by the Federal Confidentiality of Alcohol and Drug Abuse Patient Records regulations: The Federal rules restrict any use of the information to criminally investigate or prosecute any alcohol or drug abuse patient.[facility] HospitalIn the event this information is protected by the Federal Confidentiality of Alcohol and Drug Abuse Patient Records regulations: The Federal rules restrict any use of the information to criminally investigate or prosecute any alcohol or drug abuse patient.[facility] HospitalIn the event this information is protected by the Federal Confidentiality of Alcohol and Drug Abuse Patient Records regulations: The Federal rules restrict any use of the information to criminally investigate or prosecute any alcohol or drug abuse patient.[facility] HospitalIn the event this information is protected by the Federal Confidentiality of Alcohol and Drug Abuse Patient Records regulations: The Federal rules restrict any use of the information to criminally investigate or prosecute any alcohol or drug abuse patient.[facility] HospitalIn the event this information is protected by the Federal Confidentiality of Alcohol and Drug Abuse Patient Records regulations: The Federal rules restrict any use of the information to criminally investigate or prosecute any alcohol or drug abuse patient.[facility] HospitalIn the event this information is protected by the Federal Confidentiality of Alcohol and Drug Abuse Patient Records regulations: The Federal rules restrict any use of the information to criminally investigate or prosecute any alcohol or drug abuse patient.[facility] HospitalIn the event this information is protected by the Federal Confidentiality of Alcohol and Drug Abuse Patient Records regulations: The Federal rules restrict any use of the information to criminally investigate or prosecute any alcohol or drug abuse patient.[facility] HospitalIn the event this information is protected by the Federal Confidentiality of Alcohol and Drug Abuse Patient Records regulations: The Federal rules restrict any use of the information to criminally investigate or prosecute any alcohol or drug abuse patient.[facility] HospitalIn the event this information is protected by the Federal Confidentiality of Alcohol and Drug Abuse Patient Records regulations: The Federal rules restrict any use of the information to criminally investigate or prosecute any alcohol or drug abuse patient.[facility] HospitalIn the event this information is protected by the Federal Confidentiality of Alcohol and Drug Abuse Patient Records regulations: The Federal rules restrict any use of the information to criminally investigate or prosecute any alcohol or drug abuse patient.[facility] HospitalIn the event this information is protected by the Federal Confidentiality of Alcohol and Drug Abuse Patient Records regulations: The Federal rules restrict any use of the information to criminally investigate or prosecute any alcohol or drug abuse patient.[facility] HospitalIn the event this information is protected by the Federal Confidentiality of Alcohol and Drug Abuse Patient Records regulations: The Federal rules restrict any use of the information to criminally investigate or prosecute any alcohol or drug abuse patient.[facility] HospitalIn the event this information is protected by the Federal Confidentiality of Alcohol and Drug Abuse Patient Records regulations: The Federal rules restrict any use of the information to criminally investigate or prosecute any alcohol or drug abuse patient.[facility] HospitalIn the event this information is protected by the Federal Confidentiality of Alcohol and Drug Abuse Patient Records regulations: The Federal rules restrict any use of the information to criminally investigate or prosecute any alcohol or drug abuse patient.[facility] HospitalIn the event this information is protected by the Federal Confidentiality of Alcohol and Drug Abuse Patient Records regulations: The Federal rules restrict any use of the information to criminally investigate or prosecute any alcohol or drug abuse patient.[facility] HospitalIn the event this information is protected by the Federal Confidentiality of Alcohol and Drug Abuse Patient Records regulations: The Federal rules restrict any use of the information to criminally investigate or prosecute any alcohol or drug abuse patient.[facility] HospitalIn the event this information is protected by the Federal Confidentiality of Alcohol and Drug Abuse Patient Records regulations: The Federal rules restrict any use of the information to criminally investigate or prosecute any alcohol or drug abuse patient.[facility] HospitalIn the event this information is protected by the Federal Confidentiality of Alcohol and Drug Abuse Patient Records regulations: The Federal rules restrict any use of the information to criminally investigate or prosecute any alcohol or drug abuse patient.[facility] HospitalIn the event this information is protected by the Federal Confidentiality of Alcohol and Drug Abuse Patient Records regulations: The Federal rules restrict any use of the information to criminally investigate or prosecute any alcohol or drug abuse patient.[facility] HospitalIn the event this information is protected by the Federal Confidentiality of Alcohol and Drug Abuse Patient Records regulations: The Federal rules restrict any use of the information to criminally investigate or prosecute any alcohol or drug abuse patient.[facility] HospitalIn the event this information is protected by the Federal Confidentiality of Alcohol and Drug Abuse Patient Records regulations: The Federal rules restrict any use of the information to criminally investigate or prosecute any alcohol or drug abuse patient.[facility] HospitalIn the event this information is protected by the Federal Confidentiality of Alcohol and Drug Abuse Patient Records regulations: The Federal rules restrict any use of the information to criminally investigate or prosecute any alcohol or drug abuse patient.[facility] HospitalIn the event this information is protected by the Federal Confidentiality of Alcohol and Drug Abuse Patient Records regulations: The Federal rules restrict any use of the information to criminally investigate or prosecute any alcohol or drug abuse patient.[facility] HospitalIn the event this information is protected by the Federal Confidentiality of Alcohol and Drug Abuse Patient Records regulations: The Federal rules restrict any use of the information to criminally investigate or prosecute any alcohol or drug abuse patient.[facility] HospitalIn the event this information is protected by the Federal Confidentiality of Alcohol and Drug Abuse Patient Records regulations: The Federal rules restrict any use of the information to criminally investigate or prosecute any alcohol or drug abuse patient.[facility] HospitalIn the event this information is protected by the Federal Confidentiality of Alcohol and Drug Abuse Patient Records regulations: The Federal rules restrict any use of the information to criminally investigate or prosecute any alcohol or drug abuse patient.[facility] HospitalIn the event this information is protected by the Federal Confidentiality of Alcohol and Drug Abuse Patient Records regulations: The Federal rules restrict any use of the information to criminally investigate or prosecute any alcohol or drug abuse patient.[facility] HospitalIn the event this information is protected by the Federal Confidentiality of Alcohol and Drug Abuse Patient Records regulations: The Federal rules restrict any use of the information to criminally investigate or prosecute any alcohol or drug abuse patient.[facility] HospitalIn the event this information is protected by the Federal Confidentiality of Alcohol and Drug Abuse Patient Records regulations: The Federal rules restrict any use of the information to criminally investigate or prosecute any alcohol or drug abuse patient.[facility] HospitalIn the event this information is protected by the Federal Confidentiality of Alcohol and Drug Abuse Patient Records regulations: The Federal rules restrict any use of the information to criminally investigate or prosecute any alcohol or drug abuse patient.[facility] HospitalIn the event this information is protected by the Federal Confidentiality of Alcohol and Drug Abuse Patient Records regulations: The Federal rules restrict any use of the information to criminally investigate or prosecute any alcohol or drug abuse patient.[facility] HospitalIn the event this information is protected by the Federal Confidentiality of Alcohol and Drug Abuse Patient Records regulations: The Federal rules restrict any use of the information to criminally investigate or prosecute any alcohol or drug abuse patient.[facility] HospitalIn the event this information is protected by the Federal Confidentiality of Alcohol and Drug Abuse Patient Records regulations: The Federal rules restrict any use of the information to criminally investigate or prosecute any alcohol or drug abuse patient.[facility] HospitalIn the event this information is protected by the Federal Confidentiality of Alcohol and Drug Abuse Patient Records regulations: The Federal rules restrict any use of the information to criminally investigate or prosecute any alcohol or drug abuse patient.[facility] HospitalIn the event this information is protected by the Federal Confidentiality of Alcohol and Drug Abuse Patient Records regulations: The Federal rules restrict any use of the information to criminally investigate or prosecute any alcohol or drug abuse patient.[facility] HospitalIn the event this information is protected by the Federal Confidentiality of Alcohol and Drug Abuse Patient Records regulations: The Federal rules restrict any use of the information to criminally investigate or prosecute any alcohol or drug abuse patient.[facility] HospitalIn the event this information is protected by the Federal Confidentiality of Alcohol and Drug Abuse Patient Records regulations: The Federal rules restrict any use of the information to criminally investigate or prosecute any alcohol or drug abuse patient.[facility] HospitalIn the event this information is protected by the Federal Confidentiality of Alcohol and Drug Abuse Patient Records regulations: The Federal rules restrict any use of the information to criminally investigate or prosecute any alcohol or drug abuse patient.[facility] HospitalIn the event this information is protected by the Federal Confidentiality of Alcohol and Drug Abuse Patient Records regulations: The Federal rules restrict any use of the information to criminally investigate or prosecute any alcohol or drug abuse patient.[facility] HospitalIn the event this information is protected by the Federal Confidentiality of Alcohol and Drug Abuse Patient Records regulations: The Federal rules restrict any use of the information to criminally investigate or prosecute any alcohol or drug abuse patient.[facility] HospitalIn the event this information is protected by the Federal Confidentiality of Alcohol and Drug Abuse Patient Records regulations: The Federal rules restrict any use of the information to criminally investigate or prosecute any alcohol or drug abuse patient.[facility] HospitalIn the event this information is protected by the Federal Confidentiality of Alcohol and Drug Abuse Patient Records regulations: The Federal rules restrict any use of the information to criminally investigate or prosecute any alcohol or drug abuse patient.[facility] HospitalIn the event this information is protected by the Federal Confidentiality of Alcohol and Drug Abuse Patient Records regulations: The Federal rules restrict any use of the information to criminally investigate or prosecute any alcohol or drug abuse patient.[facility] HospitalIn the event this information is protected by the Federal Confidentiality of Alcohol and Drug Abuse Patient Records regulations: The Federal rules restrict any use of the information to criminally investigate or prosecute any alcohol or drug abuse patient.[facility] HospitalIn the event this information is protected by the Federal Confidentiality of Alcohol and Drug Abuse Patient Records regulations: The Federal rules restrict any use of the information to criminally investigate or prosecute any alcohol or drug abuse patient.[facility] HospitalIn the event this information is protected by the Federal Confidentiality of Alcohol and Drug Abuse Patient Records regulations: The Federal rules restrict any use of the information to criminally investigate or prosecute any alcohol or drug abuse patient.[facility] HospitalIn the event this information is protected by the Federal Confidentiality of Alcohol and Drug Abuse Patient Records regulations: The Federal rules restrict any use of the information to criminally investigate or prosecute any alcohol or drug abuse patient.[facility] HospitalIn the event this information is protected by the Federal Confidentiality of Alcohol and Drug Abuse Patient Records regulations: The Federal rules restrict any use of the information to criminally investigate or prosecute any alcohol or drug abuse patient.[facility] HospitalIn the event this information is protected by the Federal Confidentiality of Alcohol and Drug Abuse Patient Records regulations: The Federal rules restrict any use of the information to criminally investigate or prosecute any alcohol or drug abuse patient.[facility] HospitalIn the event this information is protected by the Federal Confidentiality of Alcohol and Drug Abuse Patient Records regulations: The Federal rules restrict any use of the information to criminally investigate or prosecute any alcohol or drug abuse patient.[facility] HospitalIn the event this information is protected by the Federal Confidentiality of Alcohol and Drug Abuse Patient Records regulations: The Federal rules restrict any use of the information to criminally investigate or prosecute any alcohol or drug abuse patient.[facility] HospitalIn the event this information is protected by the Federal Confidentiality of Alcohol and Drug Abuse Patient Records regulations: The Federal rules restrict any use of the information to criminally investigate or prosecute any alcohol or drug abuse patient.[facility] HospitalIn the event this information is protected by the Federal Confidentiality of Alcohol and Drug Abuse Patient Records regulations: The Federal rules restrict any use of the information to criminally investigate or prosecute any alcohol or drug abuse patient.[facility] HospitalIn the event this information is protected by the Federal Confidentiality of Alcohol and Drug Abuse Patient Records regulations: The Federal rules restrict any use of the information to criminally investigate or prosecute any alcohol or drug abuse patient.[facility] HospitalIn the event this information is protected by the Federal Confidentiality of Alcohol and Drug Abuse Patient Records regulations: The Federal rules restrict any use of the information to criminally investigate or prosecute any alcohol or drug abuse patient.[facility] HospitalIn the event this information is protected by the Federal Confidentiality of Alcohol and Drug Abuse Patient Records regulations: The Federal rules restrict any use of the information to criminally investigate or prosecute any alcohol or drug abuse patient.[facility] HospitalIn the event this information is protected by the Federal Confidentiality of Alcohol and Drug Abuse Patient Records regulations: The Federal rules restrict any use of the information to criminally investigate or prosecute any alcohol or drug abuse patient.[facility] HospitalIn the event this information is protected by the Federal Confidentiality of Alcohol and Drug Abuse Patient Records regulations: The Federal rules restrict any use of the information to criminally investigate or prosecute any alcohol or drug abuse patient.[facility] HospitalIn the event this information is protected by the Federal Confidentiality of Alcohol and Drug Abuse Patient Records regulations: The Federal rules restrict any use of the information to criminally investigate or prosecute any alcohol or drug abuse patient.[facility] HospitalIn the event this information is protected by the Federal Confidentiality of Alcohol and Drug Abuse Patient Records regulations: The Federal rules restrict any use of the information to criminally investigate or prosecute any alcohol or drug abuse patient.[facility] HospitalIn the event this information is protected by the Federal Confidentiality of Alcohol and Drug Abuse Patient Records regulations: The Federal rules restrict any use of the information to criminally investigate or prosecute any alcohol or drug abuse patient.[facility] HospitalIn the event this information is protected by the Federal Confidentiality of Alcohol and Drug Abuse Patient Records regulations: The Federal rules restrict any use of the information to criminally investigate or prosecute any alcohol or drug abuse patient.[facility] HospitalIn the event this information is protected by the Federal Confidentiality of Alcohol and Drug Abuse Patient Records regulations: The Federal rules restrict any use of the information to criminally investigate or prosecute any alcohol or drug abuse patient.[facility] HospitalIn the event this information is protected by the Federal Confidentiality of Alcohol and Drug Abuse Patient Records regulations: The Federal rules restrict any use of the information to criminally investigate or prosecute any alcohol or drug abuse patient.[facility] HospitalIn the event this information is protected by the Federal Confidentiality of Alcohol and Drug Abuse Patient Records regulations: The Federal rules restrict any use of the information to criminally investigate or prosecute any alcohol or drug abuse patient.[facility] HospitalIn the event this information is protected by the Federal Confidentiality of Alcohol and Drug Abuse Patient Records regulations: The Federal rules restrict any use of the information to criminally investigate or prosecute any alcohol or drug abuse patient.[facility] HospitalIn the event this information is protected by the Federal Confidentiality of Alcohol and Drug Abuse Patient Records regulations: The Federal rules restrict any use of the information to criminally investigate or prosecute any alcohol or drug abuse patient.[facility] HospitalIn the event this information is protected by the Federal Confidentiality of Alcohol and Drug Abuse Patient Records regulations: The Federal rules restrict any use of the information to criminally investigate or prosecute any alcohol or drug abuse patient.[facility] HospitalIn the event this information is protected by the Federal Confidentiality of Alcohol and Drug Abuse Patient Records regulations: The Federal rules restrict any use of the information to criminally investigate or prosecute any alcohol or drug abuse patient.[facility] HospitalIn the event this information is protected by the Federal Confidentiality of Alcohol and Drug Abuse Patient Records regulations: The Federal rules restrict any use of the information to criminally investigate or prosecute any alcohol or drug abuse patient.[facility] HospitalIn the event this information is protected by the Federal Confidentiality of Alcohol and Drug Abuse Patient Records regulations: The Federal rules restrict any use of the information to criminally investigate or prosecute any alcohol or drug abuse patient.[facility] HospitalIn the event this information is protected by the Federal Confidentiality of Alcohol and Drug Abuse Patient Records regulations: The Federal rules restrict any use of the information to criminally investigate or prosecute any alcohol or drug abuse patient.[facility] HospitalIn the event this information is protected by the Federal Confidentiality of Alcohol and Drug Abuse Patient Records regulations: The Federal rules restrict any use of the information to criminally investigate or prosecute any alcohol or drug abuse patient.[facility] HospitalIn the event this information is protected by the Federal Confidentiality of Alcohol and Drug Abuse Patient Records regulations: The Federal rules restrict any use of the information to criminally investigate or prosecute any alcohol or drug abuse patient.[facility] HospitalIn the event this information is protected by the Federal Confidentiality of Alcohol and Drug Abuse Patient Records regulations: The Federal rules restrict any use of the information to criminally investigate or prosecute any alcohol or drug abuse patient.[facility] HospitalIn the event this information is protected by the Federal Confidentiality of Alcohol and Drug Abuse Patient Records regulations: The Federal rules restrict any use of the information to criminally investigate or prosecute any alcohol or drug abuse patient.[facility] HospitalIn the event this information is protected by the Federal Confidentiality of Alcohol and Drug Abuse Patient Records regulations: The Federal rules restrict any use of the information to criminally investigate or prosecute any alcohol or drug abuse patient.[facility] HospitalIn the event this information is protected by the Federal Confidentiality of Alcohol and Drug Abuse Patient Records regulations: The Federal rules restrict any use of the information to criminally investigate or prosecute any alcohol or drug abuse patient.[facility] HospitalIn the event this information is protected by the Federal Confidentiality of Alcohol and Drug Abuse Patient Records regulations: The Federal rules restrict any use of the information to criminally investigate or prosecute any alcohol or drug abuse patient.[facility] HospitalIn the event this information is protected by the Federal Confidentiality of Alcohol and Drug Abuse Patient Records regulations: The Federal rules restrict any use of the information to criminally investigate or prosecute any alcohol or drug abuse patient.[facility] HospitalIn the event this information is protected by the Federal Confidentiality of Alcohol and Drug Abuse Patient Records regulations: The Federal rules restrict any use of the information to criminally investigate or prosecute any alcohol or drug abuse patient.[facility] HospitalIn the event this information is protected by the Federal Confidentiality of Alcohol and Drug Abuse Patient Records regulations: The Federal rules restrict any use of the information to criminally investigate or prosecute any alcohol or drug abuse patient.[facility] HospitalIn the event this information is protected by the Federal Confidentiality of Alcohol and Drug Abuse Patient Records regulations: The Federal rules restrict any use of the information to criminally investigate or prosecute any alcohol or drug abuse patient.[facility] HospitalIn the event this information is protected by the Federal Confidentiality of Alcohol and Drug Abuse Patient Records regulations: The Federal rules restrict any use of the information to criminally investigate or prosecute any alcohol or drug abuse patient.[facility] HospitalIn the event this information is protected by the Federal Confidentiality of Alcohol and Drug Abuse Patient Records regulations: The Federal rules restrict any use of the information to criminally investigate or prosecute any alcohol or drug abuse patient.[facility] HospitalIn the event this information is protected by the Federal Confidentiality of Alcohol and Drug Abuse Patient Records regulations: The Federal rules restrict any use of the information to criminally investigate or prosecute any alcohol or drug abuse patient.[facility] HospitalIn the event this information is protected by the Federal Confidentiality of Alcohol and Drug Abuse Patient Records regulations: The Federal rules restrict any use of the information to criminally investigate or prosecute any alcohol or drug abuse patient.[facility] HospitalIn the event this information is protected by the Federal Confidentiality of Alcohol and Drug Abuse Patient Records regulations: The Federal rules restrict any use of the information to criminally investigate or prosecute any alcohol or drug abuse patient.[facility] HospitalIn the event this information is protected by the Federal Confidentiality of Alcohol and Drug Abuse Patient Records regulations: The Federal rules restrict any use of the information to criminally investigate or prosecute any alcohol or drug abuse patient.[facility] HospitalIn the event this information is protected by the Federal Confidentiality of Alcohol and Drug Abuse Patient Records regulations: The Federal rules restrict any use of the information to criminally investigate or prosecute any alcohol or drug abuse patient.[facility] HospitalIn the event this information is protected by the Federal Confidentiality of Alcohol and Drug Abuse Patient Records regulations: The Federal rules restrict any use of the information to criminally investigate or prosecute any alcohol or drug abuse patient.[facility] HospitalIn the event this information is protected by the Federal Confidentiality of Alcohol and Drug Abuse Patient Records regulations: The Federal rules restrict any use of the information to criminally investigate or prosecute any alcohol or drug abuse patient.[facility] HospitalIn the event this information is protected by the Federal Confidentiality of Alcohol and Drug Abuse Patient Records regulations: The Federal rules restrict any use of the information to criminally investigate or prosecute any alcohol or drug abuse patient.[facility] HospitalIn the event this information is protected by the Federal Confidentiality of Alcohol and Drug Abuse Patient Records regulations: The Federal rules restrict any use of the information to criminally investigate or prosecute any alcohol or drug abuse patient.[facility] HospitalIn the event this information is protected by the Federal Confidentiality of Alcohol and Drug Abuse Patient Records regulations: The Federal rules restrict any use of the information to criminally investigate or prosecute any alcohol or drug abuse patient.[facility] HospitalIn the event this information is protected by the Federal Confidentiality of Alcohol and Drug Abuse Patient Records regulations: The Federal rules restrict any use of the information to criminally investigate or prosecute any alcohol or drug abuse patient.[facility] HospitalIn the event this information is protected by the Federal Confidentiality of Alcohol and Drug Abuse Patient Records regulations: The Federal rules restrict any use of the information to criminally investigate or prosecute any alcohol or drug abuse patient.[facility] HospitalIn the event this information is protected by the Federal Confidentiality of Alcohol and Drug Abuse Patient Records regulations: The Federal rules restrict any use of the information to criminally investigate or prosecute any alcohol or drug abuse patient.[facility] HospitalIn the event this information is protected by the Federal Confidentiality of Alcohol and Drug Abuse Patient Records regulations: The Federal rules restrict any use of the information to criminally investigate or prosecute any alcohol or drug abuse patient.[facility] HospitalIn the event this information is protected by the Federal Confidentiality of Alcohol and Drug Abuse Patient Records regulations: The Federal rules restrict any use of the information to criminally investigate or prosecute any alcohol or drug abuse patient.[facility] HospitalIn the event this information is protected by the Federal Confidentiality of Alcohol and Drug Abuse Patient Records regulations: The Federal rules restrict any use of the information to criminally investigate or prosecute any alcohol or drug abuse patient.[facility] HospitalIn the event this information is protected by the Federal Confidentiality of Alcohol and Drug Abuse Patient Records regulations: The Federal rules restrict any use of the information to criminally investigate or prosecute any alcohol or drug abuse patient.[facility] HospitalIn the event this information is protected by the Federal Confidentiality of Alcohol and Drug Abuse Patient Records regulations: The Federal rules restrict any use of the information to criminally investigate or prosecute any alcohol or drug abuse patient.[facility] HospitalIn the event this information is protected by the Federal Confidentiality of Alcohol and Drug Abuse Patient Records regulations: The Federal rules restrict any use of the information to criminally investigate or prosecute any alcohol or drug abuse patient.[facility] HospitalIn the event this information is protected by the Federal Confidentiality of Alcohol and Drug Abuse Patient Records regulations: The Federal rules restrict any use of the information to criminally investigate or prosecute any alcohol or drug abuse patient.[facility] HospitalIn the event this information is protected by the Federal Confidentiality of Alcohol and Drug Abuse Patient Records regulations: The Federal rules restrict any use of the information to criminally investigate or prosecute any alcohol or drug abuse patient.[facility] HospitalIn the event this information is protected by the Federal Confidentiality of Alcohol and Drug Abuse Patient Records regulations: The Federal rules restrict any use of the information to criminally investigate or prosecute any alcohol or drug abuse patient.[facility] HospitalIn the event this information is protected by the Federal Confidentiality of Alcohol and Drug Abuse Patient Records regulations: The Federal rules restrict any use of the information to criminally investigate or prosecute any alcohol or drug abuse patient.[facility] HospitalIn the event this information is protected by the Federal Confidentiality of Alcohol and Drug Abuse Patient Records regulations: The Federal rules restrict any use of the information to criminally investigate or prosecute any alcohol or drug abuse patient.[facility] HospitalIn the event this information is protected by the Federal Confidentiality of Alcohol and Drug Abuse Patient Records regulations: The Federal rules restrict any use of the information to criminally investigate or prosecute any alcohol or drug abuse patient.[facility] HospitalIn the event this information is protected by the Federal Confidentiality of Alcohol and Drug Abuse Patient Records regulations: The Federal rules restrict any use of the information to criminally investigate or prosecute any alcohol or drug abuse patient.[facility] HospitalIn the event this information is protected by the Federal Confidentiality of Alcohol and Drug Abuse Patient Records regulations: The Federal rules restrict any use of the information to criminally investigate or prosecute any alcohol or drug abuse patient.[facility] HospitalIn the event this information is protected by the Federal Confidentiality of Alcohol and Drug Abuse Patient Records regulations: The Federal rules restrict any use of the information to criminally investigate or prosecute any alcohol or drug abuse patient.[facility] HospitalIn the event this information is protected by the Federal Confidentiality of Alcohol and Drug Abuse Patient Records regulations: The Federal rules restrict any use of the information to criminally investigate or prosecute any alcohol or drug abuse patient.[facility] HospitalIn the event this information is protected by the Federal Confidentiality of Alcohol and Drug Abuse Patient Records regulations: The Federal rules restrict any use of the information to criminally investigate or prosecute any alcohol or drug abuse patient.[facility] Care Teams (unrecognized sec tion and content) Shredder/Granulator Operator Relationship Specialty Start Date End Date Mitch Mejia PCP - General Family Practice 01/19/16 Meenu Garay MD, [address] [place] [address] Physician Radiation Oncology 09/06/16 Carla Almonte RN Specialty Health Concierge Oncology 07/06/17 Meenu Garay MD, [address] [place] [address] Physician Radiation Oncology 04/12/19 Chanelle Westfall, PRINCE [address] [place] [address] Specialty Health Concierge Hematology/Oncology 03/12/21 Shredder/Granulator Operator Relationship Specialty Start Date End Date Mitch Mejia PCP - General Family Practice 01/19/16 Meenu Garay MD, [address] [place] [address] Physician Radiation Oncology 09/06/16 Carla Almonte, RN Specialty Health Concierge Oncology 07/06/17 Meenu Garay MD, [address] [place] [address] Physician Radiation Oncology 04/12/19 Cahnelle Westfall, RN [address] [place] [address] Specialty Health Concierge Hematology/Oncology 03/12/21 Shredder/Granulator Operator Relationship Specialty Start Date End Date RobertoMitch Tanvi PCP - General Family Practice 01/19/16 Meenu Garay MD, [address] [place] [address] Physician Radiation Oncology 09/06/16 Carla Almonte, RN Specialty Health Concierge Oncology 07/06/17 Meenu Garay MD, [address] [place] [address] Physician Radiation Oncology 04/12/19 Chanelle Westfall RN [address] [place] [address] Specialty Health Concierge Hematology/Oncology 03/12/21 Shredder/Granulator Operator Relationship Specialty Start Date End Date JonatanmarilyambrocioMitch PCP - General Family Practice 01/19/16 Meenu Garay MD, [address] [place] [address] Physician Radiation Oncology 09/06/16 Carla Almonte RN Specialty Health Concierge Oncology 07/06/17 Meenu Garay MD, [address] [place] [address] Physician Radiation Oncology 04/12/19 Chanelle Westfall, PRINCE [address] [place] [address] Specialty Health Concierge Hematology/Oncology 03/12/21 Shredder/Granulator Operator Relationship Specialty Start Date End Date Mitch Mejia PCP - General Family Practice 01/19/16 Meenu Garay MD, [address] [place] [address] Physician Radiation Oncology 09/06/16 Carla Almonte, RN Specialty Health Concierge Oncology 07/06/17 Meenu Garay MD, [address] [place] [address] Physician Radiation Oncology 04/12/19 Chanelle Westfall, PRINCE [address] [place] [address] Specialty Health Concierge Hematology/Oncology 03/12/21 Shredder/Granulator Operator Relationship Specialty Start Date End Date Mitch Mejia PCP - General Family Practice 01/19/16 Meenu Garay MD, [address] [place] [address] Physician Radiation Oncology 09/06/16 Carla Almonte, RN Specialty Health Concierge Oncology 07/06/17 Meenu Garay MD, [address] [place] [address] Physician Radiation Oncology 04/12/19 Chanelle Westfall, PRINCE [address] [place] [address] Specialty Health Concierge Hematology/Oncology 03/12/21 Shredder/Granulator Operator Relationship Specialty Start Date End Date Mitch Mejia PCP - General Family Practice 01/19/16 Meenu Garay MD, [address] [place] [address] Physician Radiation Oncology 09/06/16 Carla Almonte RN Specialty Health Concierge Oncology 07/06/17 Meenu Garay MD, [address] [place] [address] Physician Radiation Oncology 04/12/19 Chanelle Westfall, PRINCE [address] [place] [address] Specialty Health Concierge Hematology/Oncology 03/12/21 Shredder/Granulator Operator Relationship Specialty Start Date End Date Mitch Mejia PCP - General Family Practice 01/19/16 Meenu Garay MD, [address] [place] [address] Physician Radiation Oncology 09/06/16 Carla Almonte RN Specialty Health Concierge Oncology 07/06/17 Meenu Garay MD, [address] [place] [address] Physician Radiation Oncology 04/12/19 Chanelle Westfall, RN [address] [place] [address] Specialty Health Concierge Hematology/Oncology 03/12/21 Shredder/Granulator Operator Relationship Specialty Start Date End Date Mitch Mejia PCP - General Family Practice 01/19/16 Meenu Garay MD, [address] [place] [address] Physician Radiation Oncology 09/06/16 Carla Almonte RN Specialty Health Concierge Oncology 07/06/17 Meenu Garay MD, [address] [place] [address] Physician Radiation Oncology 04/12/19 Chanelle Westfall, RN [address] [place] [address] Specialty Health Concierge Hematology/Oncology 03/12/21 Shredder/Granulator Operator Relationship Specialty Start Date End Date Mitch Mejia PCP - General Family Practice 01/19/16 Meenu Garay MD, [address] [place] [address] Physician Radiation Oncology 09/06/16 Carla Almonte, RN Specialty Health Concierge Oncology 07/06/17 Meenu Garay MD, [address] [place] [address] Physician Radiation Oncology 04/12/19 Chanelle Westfall, PRICNE [address] [place] [address] Specialty Health Concierge Hematology/Oncology 03/12/21 Shredder/Granulator Operator Relationship Specialty Start Date End Date Mitch Mejia PCP - General Family Practice 01/19/16 Meenu Garay MD, [address] [place] [address] Physician Radiation Oncology 09/06/16 Carla Almonte RN Specialty Health Concierge Oncology 07/06/17 Meenu Garay MD, [address] [place] [address] Physician Radiation Oncology 04/12/19 Chanelle Westfall, PRINCE [address] [place] [address] Specialty Health Concierge Hematology/Oncology 03/12/21 Shredder/Granulator Operator Relationship Specialty Start Date End Date Mitch Mejia PCP - General Family Practice 01/19/16 Meenu Garay MD, [address] [place] [address] Physician Radiation Oncology 09/06/16 Carla Almonte, RN Specialty Health Concierge Oncology 07/06/17 Meenu Garay MD, [address] [place] [address] Physician Radiation Oncology 04/12/19 Chanelle Westfall, PRINCE [address] [place] [address] Specialty Health Concierge Hematology/Oncology 03/12/21 Shredder/Granulator Operator Relationship Specialty Start Date End Date Mitch Mejia PCP - General Family Practice 01/19/16 Meenu Garay MD, [address] [place] [address] Physician Radiation Oncology 09/06/16 Carla Almonte, RN Specialty Health Concierge Oncology 07/06/17 Meenu Garay MD, [address] [place] [address] Physician Radiation Oncology 04/12/19 Chanelle Westfall, PRINCE [address] [place] [address] Specialty Health Concierge Hematology/Oncology 03/12/21 Shredder/Granulator Operator Relationship Specialty Start Date End Date Mitch Mejia PCP - General Family Practice 01/19/16 Meenu Garay MD, [address] [place] [address] Physician Radiation Oncology 09/06/16 Carla Almonte RN Specialty Health Concierge Oncology 07/06/17 Meenu Garay MD, [address] [place] [address] Physician Radiation Oncology 04/12/19 Chanelle Westfall, PRINCE [address] [place] [address] Specialty Health Concierge Hematology/Oncology 03/12/21 Shredder/Granulator Operator Relationship Specialty Start Date End Date Mitch Mejia PCP - General Family Practice 01/19/16 Meenu Garay MD, [address] [place] [address] Physician Radiation Oncology 09/06/16 Carla Almonte RN Specialty Health Concierge Oncology 07/06/17 Meenu Garay MD, [address] [place] [address] Physician Radiation Oncology 04/12/19 Chanelle Westfall, PRINCE [address] [place] [address] Specialty Health Concierge Hematology/Oncology 03/12/21 Shredder/Granulator Operator Relationship Specialty Start Date End Date Mitch Mejia PCP - General Family Practice 01/19/16 Meenu Garay MD, [address] [place] [address] Physician Radiation Oncology 09/06/16 Carla Almonte RN Specialty Health Concierge Oncology 07/06/17 Meenu Garay MD, [address] [place] [address] Physician Radiation Oncology 04/12/19 Chanelle Westfall, RN [address] [place] [address] Specialty Health Concierge Hematology/Oncology 03/12/21 Shredder/Granulator Operator Relationship Specialty Start Date End Date Mitch Mejia PCP - General Family Practice 01/19/16 Meenu Garay MD, [address] [place] [address] Physician Radiation Oncology 09/06/16 Carla Almonte RN Specialty Health Concierge Oncology 07/06/17 Meenu Garay MD, [address] [place] [address] Physician Radiation Oncology 04/12/19 Chanelle Westfall, PRINCE [address] [place] [address] Specialty Health Concierge Hematology/Oncology 03/12/21 Shredder/Granulator Operator Relationship Specialty Start Date End Date Mitch Mejia PCP - General Family Practice 01/19/16 Meenu Garay MD, [address] [place] [address] Physician Radiation Oncology 09/06/16 Carla Almonte RN Specialty Health Concierge Oncology 07/06/17 Meenu Garay MD, [address] [place] [address] Physician Radiation Oncology 04/12/19 Chanelle Westfall, PRINCE [address] [place] [address] Specialty Health Concierge Hematology/Oncology 03/12/21 Shredder/Granulator Operator Relationship Specialty Start Date End Date Mitch Mejia PCP - General Family Practice 01/19/16 Meenu Garay MD, [address] [place] [address] Physician Radiation Oncology 09/06/16 Carla Almonte, RN Specialty Health Concierge Oncology 07/06/17 Meenu Garay MD, [address] [place] [address] Physician Radiation Oncology 04/12/19 Chanelle Westfall, PRINCE [address] [place] [address] Specialty Health Concierge Hematology/Oncology 03/12/21 Shredder/Granulator Operator Relationship Specialty Start Date End Date Mitch Mejia PCP - General Family Practice 01/19/16 Meenu Garay MD, [address] [place] [address] Physician Radiation Oncology 09/06/16 Carla Almonte, RN Specialty Health Concierge Oncology 07/06/17 Meenu Garay MD, [address] [place] [address] Physician Radiation Oncology 04/12/19 Chanelle Westfall, RN [address] [place] [address] Specialty Health Concierge Hematology/Oncology 03/12/21 Shredder/Granulator Operator Relationship Specialty Start Date End Date Mitch Mejia PCP - General Family Practice 01/19/16 Meenu Garay MD, [address] [place] [address] Physician Radiation Oncology 09/06/16 Carla Almonte RN Specialty Health Concierge Oncology 07/06/17 Meenu Garay MD, [address] [place] [address] Physician Radiation Oncology 04/12/19 Chanelle Westfall, PRINCE [address] [place] [address] Specialty Health Concierge Hematology/Oncology 03/12/21 Shredder/Granulator Operator Relationship Specialty Start Date End Date Mitch Mejia PCP - General Family Practice 01/19/16 Meenu Garay MD, [address] [place] [address] Physician Radiation Oncology 09/06/16 Carla Almonte RN Specialty Health Concierge Oncology 07/06/17 Meenu Garay MD, [address] [place] [address] Physician Radiation Oncology 04/12/19 Chanelle Westfall, PRINCE [address] [place] [address] Specialty Health Concierge Hematology/Oncology 03/12/21 Shredder/Granulator Operator Relationship Specialty Start Date End Date Mitch Mejia PCP - General Family Practice 01/19/16 Meenu Garay MD, [address] [place] [address] Physician Radiation Oncology 09/06/16 Carla Almonte RN Specialty Health Concierge Oncology 07/06/17 Meenu Garay MD, [address] [place] [address] Physician Radiation Oncology 04/12/19 Chanelle Westfall, RN [address] [place] [place] [address] Specialty Health Concierge Hematology/Oncology 03/12/21 Shredder/Granulator Operator Relationship Specialty Start Date End Date Mitch Mejia PCP - General Family Practice 01/19/16 Meenu Garay MD, [address] [place] [address] Physician Radiation Oncology 09/06/16 Carla Almonte, RN Specialty Health Concierge Oncology 07/06/17 Meenu Garay MD, [address] [place] [address] Physician Radiation Oncology 04/12/19 Chanelle Westfall, PRINCE [address] [place] [address] Specialty Health Concierge Hematology/Oncology 03/12/21 Shredder/Granulator Operator Relationship Specialty Start Date End Date Mitch Mejia PCP - General Family Practice 01/19/16 Meenu Garay MD, [address] [place] [address] Physician Radiation Oncology 09/06/16 Carla Almonte RN Specialty Health Concierge Oncology 07/06/17 Meenu Garay MD, [address] [place] [address] Physician Radiation Oncology 04/12/19 Chanelle Westfall, PRINCE [address] [place] [address] Specialty Health Concierge Hematology/Oncology 03/12/21 Shredder/Granulator Operator Relationship Specialty Start Date End Date Mitch Mejia PCP - General Family Practice 01/19/16 Meenu Garay MD, [address] [place] [address] Physician Radiation Oncology 09/06/16 Carla Almonte, RN Specialty Health Concierge Oncology 07/06/17 Meenu Garay MD, [address] [place] [address] Physician Radiation Oncology 04/12/19 Chanelle Westfall, RN [address] [place] [address] Specialty Health Concierge Hematology/Oncology 03/12/21 Shredder/Granulator Operator Relationship Specialty Start Date End Date Mitch Mejia PCP - General Family Practice 01/19/16 Meenu Garay MD, [address] [place] [address] Physician Radiation Oncology 09/06/16 Carla Alomnte, RN Specialty Health Concierge Oncology 07/06/17 Meenu Garay MD, [address] [place] [address] Physician Radiation Oncology 04/12/19 Chanelle Westfall, PRINCE [address] [place] [address] Specialty Health Concierge Hematology/Oncology 03/12/21 Shredder/Granulator Operator Relationship Specialty Start Date End Date Mitch Mejia PCP - General Family Medicine 01/19/16 Meenu Garay MD, [address] [place] [address] Physician Radiation Oncology 09/06/16 Carla Almonte RN Specialty Health Concierge Oncology 07/06/17 Meenu Garay MD, [address] [place] [address] Physician Radiation Oncology 04/12/19 Chanelle Westfall, PRINCE [address] [place] [address] Specialty Health Concierge Hematology/Oncology 03/12/21 Shredder/Granulator Operator Relationship Specialty Start Date End Date Mitch Mejia PCP - General Family Medicine 01/19/16 Meenu Garay MD, [address] [place] [address] Physician Radiation Oncology 09/06/16 Carla Almonte RN Specialty Health Concierge Oncology 07/06/17 Meenu Garay MD, [address] [place] [address] Physician Radiation Oncology 04/12/19 Chanelle Westfall, PRINCE [address] [place] [address] Specialty Health Concierge Hematology/Oncology 03/12/21 Shredder/Granulator Operator Relationship Specialty Start Date End Date Mitch Mejia PCP - General Family Medicine 01/19/16 Meenu Garay MD, [address] [place] [address] Physician Radiation Oncology 09/06/16 Carla Almonte RN Specialty Health Concierge Oncology 07/06/17 Meenu Garay MD, [address] [place] [address] Physician Radiation Oncology 04/12/19 Chanelle Westfall, PRINCE [address] [place] [address] Specialty Health Concierge Hematology/Oncology 03/12/21 Shredder/Granulator Operator Relationship Specialty Start Date End Date Mitch Mejia PCP - General Family Medicine 01/19/16 Meenu Garay MD, [address] [place] [address] Physician Radiation Oncology 09/06/16 Carla Almonte, RN Specialty Health Concierge Oncology 07/06/17 Meenu Garay MD, [address] [place] [address] Physician Radiation Oncology 04/12/19 Chanelle Westfall, PRINCE [address] [place] [address] Specialty Health Concierge Hematology/Oncology 03/12/21 Shredder/Granulator Operator Relationship Specialty Start Date End Date JonatanmarilyambrocioMitch PCP - General Family Medicine 01/19/16 Meenu Garay MD, [address] [place] [address] Physician Radiation Oncology 09/06/16 Carla Almonte RN Specialty Health Concierge Oncology 07/06/17 Meneu Garay MD, [address] [place] [address] Physician Radiation Oncology 04/12/19 Chanelle Westfall RN [address] [place] [address] Specialty Health Concierge Hematology/Oncology 03/12/21 Shredder/Granulator Operator Relationship Specialty Start Date End Date Mitch Mejia PCP - General Family Medicine 01/19/16 Meenu Garay MD, [address] [place] [address] Physician Radiation Oncology 09/06/16 Carla Almonte, RN Specialty Health Concierge Oncology 07/06/17 Meenu Garay MD, [address] [place] [address] Physician Radiation Oncology 04/12/19 Chanelle Westfall, PRINCE [address] [place] [address] Specialty Health Concierge Hematology/Oncology 03/12/21 Shredder/Granulator Operator Relationship Specialty Start Date End Date Mitch Mejia PCP - General Family Medicine 01/19/16 Meenu Garay MD, [address] [place] [address] Physician Radiation Oncology 09/06/16 Carla Almonte RN Specialty Health Concierge Oncology 07/06/17 Meenu Garay MD, [address] [place] [address] Physician Radiation Oncology 04/12/19 Chanelle Westfall, PRINCE [address] [place] [address] Specialty Health Concierge Hematology/Oncology 03/12/21 Shredder/Granulator Operator Relationship Specialty Start Date End Date Mitch Mejia PCP - General Family Medicine 01/19/16 Meenu Garay MD, [address] [place] [address] Physician Radiation Oncology 09/06/16 Carla Almonte, RN Specialty Health Concierge Oncology 07/06/17 Meenu Garay MD, [address] [place] [address] Physician Radiation Oncology 04/12/19 Chanelle Westfall, PRINCE [address] [place] [address] Specialty Health Concierge Hematology/Oncology 03/12/21 Shredder/Granulator Operator Relationship Specialty Start Date End Date Mitch Mejia PCP - General Family Medicine 01/19/16 Meenu Garay MD, [address] [place] [address] Physician Radiation Oncology 09/06/16 Carla Almonte RN Specialty Health Concierge Oncology 07/06/17 Meenu Garay MD, [address] [place] [address] Physician Radiation Oncology 04/12/19 Chanelle Westfall, PRINCE [address] [place] [address] Specialty Health Concierge Hematology/Oncology 03/12/21 Shredder/Granulator Operator Relationship Specialty Start Date End Date Mitch Mejia PCP - General Family Medicine 01/19/16 Meenu Garay MD, [address] [place] [address] Physician Radiation Oncology 09/06/16 Carla Almonte RN Specialty Health Concierge Oncology 07/06/17 Meenu Garay MDMD [address] [place] [address] Physician Radiation Oncology 04/12/19 Chanelle Westfall, PRINCE [address] [place] [address] Specialty Health Concierge Hematology/Oncology 03/12/21 Shredder/Granulator Operator Relationship Specialty Start Date End Date Mitch Mejia PCP - General Family Medicine 01/19/16 Meenu Garay MD, [address] [place] [address] Physician Radiation Oncology 09/06/16 Carla Almonte, RN Specialty Health Concierge Oncology 07/06/17 Meenu Garay MD, [address] [place] [address] Physician Radiation Oncology 04/12/19 Chanelle Westfall RN [address] [place] [address] Specialty Health Concierge Hematology/Oncology 03/12/21 Shredder/Granulator Operator Relationship Specialty Start Date End Date Mitch Mejia PCP - General Family Medicine 01/19/16 Meenu Garay MD, [address] [place] [address] Physician Radiation Oncology 09/06/16 Carla Almonte RN Specialty Health Concierge Oncology 07/06/17 Meenu Garay MD, [address] [place] [address] Physician Radiation Oncology 04/12/19 Chanelle Westfall RN [address] [place] [address] Specialty Health Concierge Hematology/Oncology 03/12/21 Shredder/Granulator Operator Relationship Specialty Start Date End Date Mitch Mejia PCP - General Family Medicine 01/19/16 Meenu Garay MD, [address] [place] [address] Physician Radiation Oncology 09/06/16 Carla Almonte, RN Specialty Health Concierge Oncology 07/06/17 Meenu Garay MD, [address] [place] [address] Physician Radiation Oncology 04/12/19 Chanelle Westfall, PRINCE [address] [place] [address] Specialty Health Concierge Hematology/Oncology 03/12/21 Shredder/Granulator Operator Relationship Specialty Start Date End Date Mitch Mejia PCP - General Family Medicine 01/19/16 Meenu Garay MD, [address] [place] [address] Physician Radiation Oncology 09/06/16 Carla Almonte RN Specialty Health Concierge Oncology 07/06/17 Meenu Garay MD, [address] [place] [address] Physician Radiation Oncology 04/12/19 Chanelle Westfall, PRINCE [address] [place] [address] Specialty Health Concierge Hematology/Oncology 03/12/21 Shredder/Granulator Operator Relationship Specialty Start Date End Date Mitch Mejia PCP - General Family Medicine 01/19/16 Meenu Garay MD, [address] [place] [address] Physician Radiation Oncology 09/06/16 Carla Almonte RN Specialty Health Concierge Oncology 07/06/17 Meenu Garay MD, [address] [place] [address] Physician Radiation Oncology 04/12/19 Chanelle Westfall, PRINCE [address] [place] [address] Specialty Health Concierge Hematology/Oncology 03/12/21 Shredder/Granulator Operator Relationship Specialty Start Date End Date Mitch Mejia PCP - General Family Medicine 01/19/16 Meenu Garay MD, [address] [place] [address] Physician Radiation Oncology 09/06/16 Carla Almonte RN Specialty Health Concierge Oncology 07/06/17 Meenu Garay MD, [address] [place] [address] Physician Radiation Oncology 04/12/19 Chanelle Westfall, PRINCE [address] [place] [address] Specialty Health Concierge Hematology/Oncology 03/12/21 Shredder/Granulator Operator Relationship Specialty Start Date End Date Mitch Mejia PCP - General Family Medicine 01/19/16 Meenu Garay MD, [address] [place] [address] Physician Radiation Oncology 09/06/16 Carla Almonte RN Specialty Health Concierge Oncology 07/06/17 Meenu Garay MD, [address] [place] [address] Physician Radiation Oncology 04/12/19 Chanelle Westfall, RN [address] [place] [address] Specialty Health Concierge Hematology/Oncology 03/12/21 Team Status: Active Member Role Status Dates Dr. Mitch Mejia MD Family Provider Active Dr. Mitch Mejia MD Primary Care Provider Active Team Status: Inactive Member Role Status Dates Dr. Mitch Mejia MD [facility] Dr. Mayco Galeano MD Attending Provider Active Team Status: Active Member Role Status Dates Dr. Mitch Mejia MD Primary Care Provider Active Dr. Mayco Galeano MD Attending Provider Active Team Status: Inactive Member Role Status Dates Dr. Mitch Mejia MD Primary Care Provider Active Caity Cote COMMUNICATIONS EDITOR, COMMUNICATIONS EDITOR-C Attending Provider Active Shredder/Granulator Operator Relationship Specialty Start Date End Date Mitch Mejia PCP - General Family Medicine 01/19/16 Meenu Garay MD, [address] [place] [address] Physician Radiation Oncology 09/06/16 Carla Almonte RN Specialty Health Concierge Oncology 07/06/17 Meenu Garay MD, [address] [place] [address] Physician Radiation Oncology 04/12/19 Chanelle Westfall, PRINCE [address] [place] [address] Specialty Health Concierge Hematology/Oncology 03/12/21 Shredder/Granulator Operator Relationship Specialty Start Date End Date Mitch Mejia PCP - General Family Medicine 01/19/16 Meenu Garay MD, [address] [place] [address] Physician Radiation Oncology 09/06/16 Carla Almonte, RN Specialty Health Concierge Oncology 07/06/17 Meenu Garay MD, [address] [place] [address] Physician Radiation Oncology 04/12/19 Chanelle Westfall, PRINCE [address] [place] [address] Specialty Health Concierge Hematology/Oncology 03/12/21 Shredder/Granulator Operator Relationship Specialty Start Date End Date Mitch Mejia PCP - General Family Medicine 01/19/16 Meenu Garay MD, [address] [place] [address] Physician Radiation Oncology 09/06/16 Carla Almonte RN Specialty Health Concierge Oncology 07/06/17 Meenu Garay MD, [address] [place] [address] Physician Radiation Oncology 04/12/19 Chanelle Westfall, PRINCE [address] [place] [address] Specialty Health Concierge Hematology/Oncology 03/12/21 Shredder/Granulator Operator Relationship Specialty Start Date End Date Mitch Mejia PCP - General Family Medicine 01/19/16 Meenu Garay MD, [address] [place] [address] Physician Radiation Oncology 09/06/16 Carla Almonte RN Specialty Health Concierge Oncology 07/06/17 Meenu Garay MD, [address] [place] [address] Physician Radiation Oncology 04/12/19 Chanelle Westfall, PRINCE [address] [place] [address] Specialty Health Concierge Hematology/Oncology 03/12/21 Shredder/Granulator Operator Relationship Specialty Start Date End Date Mitch Mejia PCP - General Family Medicine 01/19/16 Meenu Garay MD, [address] [place] [address] Physician Radiation Oncology 09/06/16 Carla Almonte RN Specialty Health Concierge Oncology 07/06/17 Meenu Garay MD, [address] [place] [address] Physician Radiation Oncology 04/12/19 Chanelle Westfall, PRINCE [address] [place] [address] Specialty Health Concierge Hematology/Oncology 03/12/21 Shredder/Granulator Operator Relationship Specialty Start Date End Date Mitch Mejia PCP - General Family Medicine 01/19/16 Meenu Garay MD, [address] [place] [address] Physician Radiation Oncology 09/06/16 Carla Almonte RN Specialty Health Concierge Oncology 07/06/17 Meenu Garay MD, [address] [place] [address] Physician Radiation Oncology 04/12/19 Chanelle Westfall RN [address] [place] [address] Specialty Health Concierge Hematology/Oncology 03/12/21 [place], Lorraine S [address] [place] [address] Cardiology 08/18/22 Shredder/Granulator Operator Relationship Specialty Start Date End Date Mitch Mejia PCP - General Family Medicine 01/19/16 Meenu Garay MD, [address] [place] [address] Physician Radiation Oncology 09/06/16 Carla Almonte, RN Specialty Health Concierge Oncology 07/06/17 Meenu Garay MD, [address] [place] [address] Physician Radiation Oncology 04/12/19 Chanelle Westfall, PRINCE [address] [place] [address] Specialty Health Concierge Hematology/Oncology 03/12/21 [place], Lorraine S [address] [place] [address] Cardiology 08/18/22 Shredder/Granulator Operator Relationship Specialty Start Date End Date Mitch Mejia PCP - General Family Medicine 01/19/16 Meenu Garay MD, [address] [place] [address] Physician Radiation Oncology 09/06/16 Carla Almonte, RN Specialty Health Concierge Oncology 07/06/17 Meenu Garay MD, [address] [place] [address] Physician Radiation Oncology 04/12/19 Chanelle Westfall, PRINCE [address] [place] [address] Specialty Health Concierge Hematology/Oncology 03/12/21 [place], Lorraine S [address] [place] [address] Cardiology 08/18/22 Shredder/Granulator Operator Relationship Specialty Start Date End Date Mitch Mejia PCP - General Family Medicine 01/19/16 Meenu Garay MD, [address] [place] [address] Physician Radiation Oncology 09/06/16 Carla Almonte RN Specialty Health Concierge Oncology 07/06/17 Meenu Garay MD, [address] [place] [address] Physician Radiation Oncology 04/12/19 Chanelle Westfall RN [address] [place] [address] Specialty Health Concierge Hematology/Oncology 03/12/21 [place], Lorraine S [address] [place] [address] Cardiology 08/18/22 Shredder/Granulator Operator Relationship Specialty Start Date End Date Mitch Mejia PCP - General Family Medicine 01/19/16 Meenu Garay MD, [address] [place] [address] Physician Radiation Oncology 09/06/16 Carla Almonte RN Specialty Health Concierge Oncology 07/06/17 Meenu Garay MD, [address] [place] [address] Physician Radiation Oncology 04/12/19 Chanelle Westfall, PRINCE [address] [place] [address] Specialty Health Concierge Hematology/Oncology 03/12/21 [place], Lorraine S [address] [place] [address] Cardiology 08/18/22 Shredder/Granulator Operator Relationship Specialty Start Date End Date Mitch Mejia PCP - General Family Medicine 01/19/16 Meenu Garay MD, [address] [place] [address] Physician Radiation Oncology 09/06/16 Carla Almonte RN Specialty Health Concierge Oncology 07/06/17 Meenu Gaary MD, [address] [place] [address] Physician Radiation Oncology 04/12/19 Chanelle Westfall RN [address] [place] [address] Specialty Health Concierge Hematology/Oncology 03/12/21 [place], Mayco S [address] [place] [address] Cardiology 08/18/22 Shredder/Granulator Operator Relationship Specialty Start Date End Date Mitch Mejia PCP - General Family Medicine 01/19/16 Meenu Garay MD, [address] [place] [address] Physician Radiation Oncology 09/06/16 Carla Almonte RN Specialty Health Concierge Oncology 07/06/17 Meenu Garay MD, [address] [place] [address] Physician Radiation Oncology 04/12/19 Chanelle Westfall, PRINCE [address] [place] [address] Specialty Health Concierge Hematology/Oncology 03/12/21 [place], Mayco S [address] [place] [address] Cardiology 08/18/22 Shredder/Granulator Operator Relationship Specialty Start Date End Date Mitch Mejia PCP - General Family Medicine 01/19/16 Meenu Garay MD, [address] [place] [address] Physician Radiation Oncology 09/06/16 Carla Almonte RN Specialty Health Concierge Oncology 07/06/17 Meenu Garay MD, [address] [place] [address] Physician Radiation Oncology 04/12/19 Chanelle Westfall, PRINCE [address] [place] [address] Specialty Health Concierge Hematology/Oncology 03/12/21 [place], Mayco S [address] [place] [address] Cardiology 08/18/22 Shredder/Granulator Operator Relationship Specialty Start Date End Date Mitch Mejia PCP - General Family Medicine 01/19/16 Meenu Garay MD, [address] [place] [address] Physician Radiation Oncology 09/06/16 Doup, Carla, RN Specialty Health Concierge Oncology 07/06/17 Meenu Garay MD, [address] [place] [address] Physician Radiation Oncology 04/12/19 Chanelle Westfall, PRINCE [address] [place] [address] Specialty Health Concierge Hematology/Oncology 03/12/21 Waleska, Mayco S [address] [place] [address] Cardiology 08/18/22 Shredder/Granulator Operator Relationship Specialty Start Date End Date Mitch Mejia PCP - General Family Medicine 01/19/16 Meenu Garay MD, [address] [place] [place] [address] Physician Radiation Oncology 09/06/16 Carla Almonte RN Specialty Health Concierge Oncology 07/06/17 Meenu Garay MD, [address] [place] [address] Physician Radiation Oncology 04/12/19 Chanelle Westfall, PRINCE [address] [place] [address] Specialty Health Concierge Hematology/Oncology 03/12/21 Waleska, Mayco S [address] [place] [address] Cardiology 08/18/22 Shredder/Granulator Operator Relationship Specialty Start Date End Date Mitch Mejia PCP - General Family Medicine 01/19/16 Meenu Garay MD, [address] [place] [address] Physician Radiation Oncology 09/06/16 Carla Almonte, RN Specialty Health Concierge Oncology 07/06/17 Meenu Garay MD, [address] [place] [address] Physician Radiation Oncology 04/12/19 Chanelle Westfall, PRINCE [address] [place] [address] Specialty Health Concierge Hematology/Oncology 03/12/21 Waleska, Lorraine S [address] [place] [address] Cardiology 08/18/22 Shredder/Granulator Operator Relationship Specialty Start Date End Date Mitch Mejia PCP - General Family Medicine 01/19/16 Meenu Garay MD, [address] [place] [place] [address] Physician Radiation Oncology 09/06/16 Carla Almonte, RN Specialty Health Concierge Oncology 07/06/17 Meenu Garay MD, [address] [place] [place] [address] Physician Radiation Oncology 04/12/19 Chanelle Westfall, PRINCE [address] [place] [address] Specialty Health Concierge Hematology/Oncology 03/12/21 Waleska, Mayco S [address] [place] [address] Cardiology 08/18/22 Shredder/Granulator Operator Relationship Specialty Start Date End Date Mitch Mejia PCP - General Family Medicine 01/19/16 Meenu Garay MD, [address] [place] [address] Physician Radiation Oncology 09/06/16 Carla Almonte, RN Specialty Health Concierge Oncology 07/06/17 Meenu Garay MD, [address] [place] [address] Physician Radiation Oncology 04/12/19 Chanelle Westfall, PRINCE [address] [place] [address] Specialty Health Concierge Hematology/Oncology 03/12/21 Waleska, Mayco S [address] [place] [address] Cardiology 08/18/22 Shredder/Granulator Operator Relationship Specialty Start Date End Date Mitch Mejia PCP - General Family Medicine 01/19/16 Meenu Garay MD, [address] [place] [address] Physician Radiation Oncology 09/06/16 Carla Almonte, RN Specialty Health Concierge Oncology 07/06/17 Meenu Garay MD, [address] [place] [address] Physician Radiation Oncology 04/12/19 Chanelle Westfall, PRINCE [address] [place] [address] Specialty Health Concierge Hematology/Oncology 03/12/21 Waleska, Mayco S [address] [place] [address] Cardiology 08/18/22 Shredder/Granulator Operator Relationship Specialty Start Date End Date Mitch Mejia PCP - General Family Medicine 01/19/16 Meenu Garay MD, [address] [place] [address] Physician Radiation Oncology 09/06/16 Carla Almonte, RN Specialty Health Concierge Oncology 07/06/17 Meenu Garay MD, [address] [place] [address] Physician Radiation Oncology 04/12/19 Chanelle Westfall RN [address] [place] [address] Specialty Health Concierge Hematology/Oncology 03/12/21 12/13/22 Mayco Galeano [address] [place] [address] Cardiology 08/18/22 Shredder/Granulator Operator Relationship Specialty Start Date End Date Mitch Mejia PCP - General Family Medicine 01/19/16 Meenu Garay MD, [address] [place] [address] Physician Radiation Oncology 09/06/16 Carla Almonte, RN Specialty Health Concierge Oncology 07/06/17 Meenu Garay MD, [address] [place] [address] Physician Radiation Oncology 04/12/19 Mayco Galeano [address] [place] [address] Cardiology 08/18/22 Shredder/Granulator Operator Relationship Specialty Start Date End Date Mitch Mejia PCP - General Family Medicine 01/19/16 Meenu Garay MD, [address] [place] [address] Physician Radiation Oncology 09/06/16 Carla Almonte, RN Specialty Health Concierge Oncology 07/06/17 Meenu Garay MD, [address] [place] [address] Physician Radiation Oncology 04/12/19 Mayco Galeano S [address] [place] [address] Cardiology 08/18/22 Shredder/Granulator Operator Relationship Specialty Start Date End Date Mitch Mejia PCP - General Family Medicine 01/19/16 Meenu Garay MD, MD [address] [place] [address] Physician Radiation Oncology 09/06/16 Carla Almonte, RN Specialty Health Concierge Oncology 07/06/17 Meenu Garay MD, MD [address] [place] [address] Physician Radiation Oncology 04/12/19 Mayco Galeano S [address] [place] [address] Cardiology 08/18/22 Shredder/Granulator Operator Relationship Specialty Start Date End Date Mitch Mejia PCP - General Family Medicine 01/19/16 Meenu Garay MD, MD [address] [place] [address] Physician Radiation Oncology 09/06/16 Carla Almonte RN Specialty Health Concierge Oncology 07/06/17 Meenu Garay MD, [address] [place] [address] Physician Radiation Oncology 04/12/19 Mayco Galeano [address] [place] [address] Cardiology 08/18/22 Shredder/Granulator Operator Relationship Specialty Start Date End Date Mitch Mejia PCP - General Family Medicine 01/19/16 Meenu Garay MD, [address] [place] [address] Physician Radiation Oncology 09/06/16 Carla Almonte RN Specialty Health Concierge Oncology 07/06/17 Meenu Garay MD, MD [address] [place] [address] Physician Radiation Oncology 04/12/19 Mayco Galeano [address] [place] [address] Cardiology 08/18/22 Shredder/Granulator Operator Relationship Specialty Start Date End Date Mitch Mejia PCP - General Family Medicine 01/19/16 Meenu Garay MD, [address] [place], [place] [address] Physician Radiation Oncology 09/06/16 Carla Almonte, RN Specialty Health Concierge Oncology 07/06/17 Meenu Garay MD, MD [address] [place], [place] [address] Physician Radiation Oncology 04/12/19 Mayco Galeano [address] [place] [address] Cardiology 08/18/22 Team Status: Inactive Member Role Status Dates Dr. Mitch Mejia MD Primary Care Provider, Referrin g Provider Active Renetta Yang COMMUNICATIONS EDITOR, COMMUNICATIONS EDITOR-C Attending Provider Active Team Status: Inactive Member Role Status Dates Dr. Mitch Mejia MD Primary Care Provider Active Dr. Rip Rivers DO Attending Provider, Referring Prov ider Active Shredder/Granulator Operator Relationship Specialty Start Date End Date Mitch Mejia PCP - General Family Medicine 01/19/16 Meenu Garay MD, [address] [place] [address] Physician Radiation Oncology 09/06/16 Carla Almonte, RN Specialty Health Concierge Oncology 07/06/17 Meenu Garay MD, [address] [place], [place] [address] Physician Radiation Oncology 04/12/19 Mayco Galeano [address] [place] [address] Cardiology 08/18/22 Shredder/Granulator Operator Relationship Specialty Start Date End Date Mitch Mejia PCP - General Family Medicine 01/19/16 Meenu Garay MD, [address] [place], [place] [address] Physician Radiation Oncology 09/06/16 Carla Almonte RN Specialty Health Concierge Oncology 07/06/17 Meenu Garay MD, [address] [place], [place] [address] Physician Radiation Oncology 04/12/19 Mayco Galeano [address] [facility] [address] [place] [address] Cardiology 08/18/22 Team Status: Active Member Role Status Dates Dr. Mtich Mejia MD Primary Care Provider Active Dr. Gurvinder Dill DO Emergency Provider Active Dr. Luis Stratton MD Admit Provider, Attending Pro vider Active Team Status: Active Member Role Status Dates Dr. Mitch Mejia MD Primary Care Provider Active Dr. Gurvinder Dill DO Emergency Provider Active Dr. Luis Stratton MD Admit Provider, Other Provide r Active Dr. Malika Garay DO Attending Provider, Other Provide r Active Team Status: Inactive Member Role Status Dates Dr. Mitch Mejia MD Primary Care Provider Active Dr. Gurvinder Dill DO Emergency Provider Active Dr. Luis Stratton MD Admit Provider, Other Provide r Active Dr. Malika Garay DO Attending Provider Active Shredder/Granulator Operator Relationship Specialty Start Date End Date Mitch Mejia PCP - General Family Medicine 01/19/16 Meenu Garay MD, MD [address] [place] [address] Physician Radiation Oncology 09/06/16 Carla Almonte RN Specialty Health Concierge Oncology 07/06/17 Meenu Garay MD, [address] [place] [address] Physician Radiation Oncology 04/12/19 Mayco Galeano [address] [place] [address] Cardiology 08/18/22 Shredder/Granulator Operator Relationship Specialty Start Date End Date Mitch Mejia PCP - General Family Medicine 01/19/16 Meenu Garay MD, [address] [place] [address] Physician Radiation Oncology 09/06/16 Carla Almonte RN Specialty Health Concierge Oncology 07/06/17 Meenu Garay MD, MD [address] [place] [address] Physician Radiation Oncology 04/12/19 Mayco Galeano MD [address] [place], [place] [address] Cardiology 08/18/22 Shredder/Granulator Operator Relationship Specialty Start Date End Date Mitch Mejia PCP - General Family Medicine 01/19/16 Meenu Garay MD, [address] [place] [address] Physician Radiation Oncology 09/06/16 Carla Almonte, RN Specialty Health Concierge Oncology 07/06/17 Meenu Garay MD, [address] [place] [address] Physician Radiation Oncology 04/12/19 Mayco Galeano MD [address] [place] [address] Cardiology 08/18/22 Shredder/Granulator Operator Relationship Specialty Start Date End Date Mitch Mejia PCP - General Family Medicine 01/19/16 Meenu Garay MD, [address] [place] [address] Physician Radiation Oncology 09/06/16 Carla Almonte, RN Specialty Health Concierge Oncology 07/06/17 Meenu Garay MD, [address] [place] [address] Physician Radiation Oncology 04/12/19 Mayco Galeano MD [address] [place] [address] Cardiology 08/18/22 Shredder/Granulator Operator Relationship Specialty Start Date End Date Mitch Mejia MD PCP - General Family Medicine 01/19/16 Meenu Garay MD, [address] [place] [address] Physician Radiation Oncology 09/06/16 Carla Almonte, PRINCE Specialty Health Concierge Oncology 07/06/17 Meenu Garay MD, [address] [place] [address] Physician Radiation Oncology 04/12/19 Mayco Galeano MD [address] [place] [address] Cardiology 08/18/22 Shredder/Granulator Operator Relationship Specialty Start Date End Date Mitch Mejia MD PCP - General Family Medicine 01/19/16 Meenu Garay MD, [address] [place] [address] Physician Radiation Oncology 09/06/16 Carla Almonte RN Specialty Health Concierge Oncology 07/06/17 Meenu Garay MD, [address] [place] [address] Physician Radiation Oncology 04/12/19 Mayco Galeano MD [address] [place] [address] Cardiology 08/18/22 Shredder/Granulator Operator Relationship Specialty Start Date End Date Mitch Mejia MD PCP - General Family Medicine 01/19/16 Meenu Garay MD, [address] [place] [address] Physician Radiation Oncology 09/06/16 Carla Almonte RN Specialty Health Concierge Oncology 07/06/17 Meenu Garay MD, MD [address] [place] [address] Physician Radiation Oncology 04/12/19 Mayco Galeano MD [address] [place] [address] Cardiology 08/18/22 Shredder/Granulator Operator Relationship Specialty Start Date End Date Mitch Mejia MD PCP - General Family Medicine 01/19/16 Meenu Garay MD, [address] [place] [address] Physician Radiation Oncology 09/06/16 Carla Almonte RN Specialty Health Concierge Oncology 07/06/17 Meenu Garay MD, [address] [place] [address] Physician Radiation Oncology 04/12/19 Mayco Galeano MD [address] [place] [address] Cardiology 08/18/22 Shredder/Granulator Operator Relationship Specialty Start Date End Date Mitch Mejia MD PCP - General Family Medicine 01/19/16 Meenu Garay MD, [address] [place] [address] Physician Radiation Oncology 09/06/16 Carla Almonte RN Specialty Health Concierge Oncology 07/06/17 Meenu Garay MD, MD [address] [place] [address] Physician Radiation Oncology 04/12/19 Mayco Galeano MD [address] [place] [address] Cardiology 08/18/22 Shredder/Granulator Operator Relationship Specialty Start Date End Date Mitch Mejia MD PCP - General Family Medicine 01/19/16 Meenu Garay MD, [address] [place] [address] Physician Radiation Oncology 09/06/16 Carla Almonte RN Specialty Health Concierge Oncology 07/06/17 Meenu Garay MD, [address] [place] [address] Physician Radiation Oncology 04/12/19 Mayco Galeano MD [address] [place] [address], [place] [address] Cardiology 08/18/22 Shredder/Granulator Operator Relationship Specialty Start Date End Date Mitch Mejia MD PCP - General Family Medicine 01/19/16 Meenu Garay MD, MD [address] [place] [address] Physician Radiation Oncology 09/06/16 Carla Almonte RN Specialty Health Concierge Oncology 07/06/17 Meenu Garay MD, MD [address] [place] [address] Physician Radiation Oncology 04/12/19 Chanelle Westfall, PRINCE [address] [place] [address] Specialty Health Concierge Hematology/Oncology 03/12/21 12/13/22 Mayco Galeano MD [address] [place] [address] Cardiology 08/18/22 Shredder/Granulator Operator Relationship Specialty Start Date End Date Mitch Mejia MD PCP - General Family Medicine 01/19/16 Meenu Garay MD, MD [address] [place] [address] Physician Radiation Oncology 09/06/16 Carla Almonte RN Specialty Health Concierge Oncology 07/06/17 Meenu Garay MD, MD [address] [place] [address] Physician Radiation Oncology 04/12/19 Chanelle Westfall, PRINCE [address] [place] [address] Specialty Health Concierge Hematology/Oncology 03/12/21 12/13/22 Mayco Galeano MD [address] [place] [address] Cardiology 08/18/22 Shredder/Granulator Operator Relationship Specialty Start Date End Date Mitch Mejia MD PCP - General Family Medicine 01/19/16 Meenu Garay MD, [address] [place] [address] Physician Radiation Oncology 09/06/16 Carla Almonte RN Specialty Health Concierge Oncology 07/06/17 Meenu Garay MD, [address] [place] [address] Physician Radiation Oncology 04/12/19 Chanelle Westfall, PRINCE [address] [place] [address] Specialty Health Concierge Hematology/Oncology 03/12/21 12/13/22 Mayco Galeano MD [address] [place] [address] Cardiology 08/18/22 Shredder/Granulator Operator Relationship Specialty Start Date End Date Mitch Mejia MD PCP - General Family Medicine 01/19/16 Meenu Garay MD, [address] [place] [address] Physician Radiation Oncology 09/06/16 Carla Almonte RN Specialty Health Concierge Oncology 07/06/17 Meenu Garay MD, [address] [place] [address] Physician Radiation Oncology 04/12/19 Chanelle Westfall RN [address] [place] [address] Specialty Health Concierge Hematology/Oncology 03/12/21 12/13/22 Shredder/Granulator Operator Relationship Specialty Start Date End Date Mitch Mejia MD PCP - General Family Medicine 01/19/16 Meenu Garay MD, [address] [place] [place] [address] Physician Radiation Oncology 09/06/16 Carla Almonte RN Specialty Health Concierge Oncology 07/06/17 Meenu Garay MD, [address] [place] [place] [address] Physician Radiation Oncology 04/12/19 Mayco Galeano MD [address] [place] [address] Cardiology 08/18/22 Shredder/Granulator Operator Relationship Specialty Start Date End Date Mitch Mejia MD PCP - General Family Medicine 01/19/16 Meenu Garay MD, [address] [place] [address] Physician Radiation Oncology 09/06/16 Carla Almonte RN Specialty Health Concierge Oncology 07/06/17 Meenu Garay MD, [address] [place] [place] [address] Physician Radiation Oncology 04/12/19 Mayco Galeano MD [address] [place] [address] Cardiology 08/18/22 Shredder/Granulator Operator Relationship Specialty Start Date End Date Mitch Mejia MD PCP - General Family Medicine 01/19/16 Meenu Garay MD, [address] [place] [address] Physician Radiation Oncology 09/06/16 Carla Almonte, RN Specialty Health Concierge Oncology 07/06/17 Meenu Garay MD, [address] [place] [address] Physician Radiation Oncology 04/12/19 Chanelle Westfall RN [address] [place] [address] Specialty Health Concierge Hematology/Oncology 03/12/21 12/13/22 Mayco Galeano MD [address] [place] [address] Cardiology 08/18/22 Shredder/Granulator Operator Relationship Specialty Start Date End Date Mitch Mejia MD PCP - General Family Medicine 01/19/16 Meenu Garay MD, MD [address] [place] [address] Physician Radiation Oncology 09/06/16 Carla Almonte, RN Specialty Health Concierge Oncology 07/06/17 Meenu Garay MD, [address] [place] [address] Physician Radiation Oncology 04/12/19 Mayco Galeano MD [address] [place], [place] [address] Cardiology 08/18/22 Shredder/Granulator Operator Relationship Specialty Start Date End Date Mitch Mejia MD PCP - General Family Medicine 01/19/16 Meenu Garay MD, MD [address] [place], [place] [address] [phone] Physician Radiation Oncology 09/06/16 Carla Almonte RN Specialty Health Concierge Oncology 07/06/17 Meenu Garay MD, [address] [place] [address] Physician Radiation Oncology 04/12/19 Chanelle Westfall RN [address] [place] [address] Specialty Health Concierge Hematology/Oncology 03/12/21 12/13/22 Shredder/Granulator Operator Relationship Specialty Start Date End Date Mitch Mejia MD PCP - General Family Medicine 01/19/16 Meenu Garay MD, MD [address] [place] [address] Physician Radiation Oncology 09/06/16 Carla Almonte RN Specialty Health Concierge Oncology 07/06/17 Meenu Garay MD, MD [address] [place] [address] Physician Radiation Oncology 04/12/19 Chanelle Westfall RN [address] [place], [place] [address] [phone] Specialty Health Concierge Hematology/Oncology 03/12/21 12/13/22 Shredder/Granulator Operator Relationship Specialty Start Date End Date Mitch Mejia MD PCP - General Family Medicine 01/19/16 Meenu Garay MD, MD [address] [place] [address] Physician Radiation Oncology 09/06/16 Carla Almonte RN Specialty Health Concierge Oncology 07/06/17 Meenu Garay MD, MD [address] [place] [address] Physician Radiation Oncology 04/12/19 Chanelle Westfall RN [address] [place] [address] Specialty Health Concierge Hematology/Oncology 03/12/21 12/13/22 Shredder/Granulator Operator Relationship Specialty Start Date End Date Mitch Mejia MD PCP - General Family Medicine 01/19/16 Meenu Garay MD, MD [address] [place] [address] Physician Radiation Oncology 09/06/16 Carla Almonte RN Specialty Health Concierge Oncology 07/06/17 Meenu Garay MD, MD [address] [place] [address] Physician Radiation Oncology 04/12/19 Mayco Galeano MD [address] [place] [address], [place] [address] Cardiology 08/18/22 Shredder/Granulator Operator Relationship Specialty Start Date End Date Williams Farrell DO [address] [facility] Physician [place] [id number] PCP - General Internal Medicine 04/26/23 Meenu Garay MD, [address] [place] [address] Physician Radiation Oncology 09/06/16 Carla Almonte RN Specialty Health Concierge Oncology 07/06/17 Meenu Garay MD, [address] [place] [address] Physician Radiation Oncology 04/12/19 Mayco Galeano MD [address] [place] [address], [place] [address] Cardiology 08/18/22 Shredder/Granulator Operator Relationship Specialty Start Date End Date Williams Farrell DO [address] [facility] [place] [address] PCP - General Internal Medicine 04/26/23 Meenu Garay MD, [address] [place] [address] Physician Radiation Oncology 09/06/16 Carla Almonte RN Specialty Health Concierge Oncology 07/06/17 Meenu Garay MD, [address] [place] [address] Physician Radiation Oncology 04/12/19 Mayco Galeano MD [address] [place] [address] Cardiology 08/18/22 Shredder/Granulator Operator Relationship Specialty Start Date End Date Williams Farrell DO [address] [facility] [place] [address] PCP - General Internal Medicine 04/26/23 Meenu Garay MD, MD [address] [place] [address] Physician Radiation Oncology 09/06/16 Carla Almonte RN Specialty Health Concierge Oncology 07/06/17 Meenu Garay MD, MD [address] [place] [address] Physician Radiation Oncology 04/12/19 Mayco Galeano MD [address] [place] [address] Cardiology 08/18/22 Team Status: Active Member Role Status Dates Dr. Mitch Mejia MD Family Provider Active Dr. Williams Farrell DO Primary Care Provider Active Team Status: Inactive Member Role Status Dates Dr. Mitch Mejia MD Referring Provider Active Renetta Yang COMMUNICATIONS EDITOR, COMMUNICATIONS EDITOR-C Attending Provider Active Dr. Williams Farrell DO Primary Care Provider Active Team Status: Active Member Role Status Dates Dr. Williams Farrell DO Primary Care Provider Active Dr. Mayco Galeano MD Attending Provider Active Team Status: Inactive Member Role Status Dates Dr. Rip Rivers DO Attending Provider, Referring Prov ider Active Dr. Williams Farrell DO Primary Care Provider Active Shredder/Granulator Operator Relationship Specialty Start Date End Date Williams Farrell DO [address] [facility] [place] [address] PCP - General Internal Medicine 04/26/23 Meenu Garay MD [address] [place] [place] [address] Physician Radiation Oncology 09/06/16 Carla Almonte RN Specialty Health Concierge Oncology 07/06/17 Meenu Garay MD [address] [place] [address] Physician Radiation Oncology 04/12/19 Mayco Galeano MD [address] [place] [address] Cardiology 08/18/22 Shredder/Granulator Operator Relationship Specialty Start Date End Date Williams Farrell DO [address] [facility] [place] [address] PCP - General Internal Medicine 04/26/23 Meenu Garay MD [address] [place] [address] Physician Radiation Oncology 09/06/16 Carla Almonte RN Specialty Health Concierge Oncology 07/06/17 Meenu Garay MD [address] [place] [address] Physician Radiation Oncology 04/12/19 Mayco Galeano MD [address] [place] [address] Cardiology 08/18/22 Shredder/Granulator Operator Relationship Specialty Start Date End Date Williams Farrell DO [address] [facility] [place] [address] PCP - General Internal Medicine 04/26/23 Meenu Garay MD [address] [place] [address] Physician Radiation Oncology 09/06/16 Carla Almonte, RN Specialty Health Concierge Oncology 07/06/17 Meenu Garay MD [address] [place] [address] Physician Radiation Oncology 04/12/19 Mayco Galeano MD [address] [place] [address] Cardiology 08/18/22 Shredder/Granulator Operator Relationship Specialty Start Date End Date Williams Farrell DO [address] [facility] Physician [facility] [place] [address] PCP - General Internal Medicine 04/26/23 Meenu Garay MD [address] [place] [address] [address] Physician Radiation Oncology 09/06/16 Carla Almonte RN Specialty Health Concierge Oncology 07/06/17 Meenu Garay MD [address] [place] [address] Physician Radiation Oncology 04/12/19 Mayco Galeano MD [address] [place] [address] Cardiology 08/18/22 Shredder/Granulator Operator Relationship Specialty Start Date End Date Williams Farrell DO [address] [facility] [place] [address] PCP - General Internal Medicine 04/26/23 Meenu Garay MD [address] [place] [address] Physician Radiation Oncology 09/06/16 Carla Almonte RN Specialty Health Concierge Oncology 07/06/17 Meenu Garay MD [address] [place] [address] Physician Radiation Oncology 04/12/19 Mayco Galeano MD [address] [place] [address] Cardiology 08/18/22 Shredder/Granulator Operator Relationship Specialty Start Date End Date Williams Farrell DO [address] [facility] [place] [address] PCP - General Internal Medicine 04/26/23 Meenu Garay MD [address] [place] [address] Physician Radiation Oncology 09/06/16 Carla Almonte RN Specialty Health Concierge Oncology 07/06/17 Meenu Garay MD [address] [place] [address] Physician Radiation Oncology 04/12/19 Mayco Galeano MD [address] [place] [address] Cardiology 08/18/22 Shredder/Granulator Operator Relationship Specialty Start Date End Date Williams Farrell DO 53 [facility] Physician [facility] [place] [address] PCP - General Internal Medicine 04/26/23 Meenu Garay MD [address] [place] [address] Physician Radiation Oncology 09/06/16 Carla Almonte RN Specialty Health Concierge Oncology 07/06/17 Meenu Garay MD [address] [place] [address] Physician Radiation Oncology 04/12/19 Mayco Galeano MD [address] [place] [address] Cardiology 08/18/22 Shredder/Granulator Operator Relationship Specialty Start Date End Date Williams Farrell DO [address] [facility] [place] [address] PCP - General Internal Medicine 04/26/23 Meenu Garay MD [address] [place] [address] Physician Radiation Oncology 09/06/16 Carla Almonte RN Specialty Health Concierge Oncology 07/06/17 Meenu Garay MD [address] [place] [address] Physician Radiation Oncology 04/12/19 Mayco Galeano MD [address] [facility] [address] [place], [place] [address] Cardiology 08/18/22 Team Status: Inactive Member Role Status Dates Dr. Williams Farrell DO Primary Care Provider Active Dr. Eze Mack MD Emergency Provider Active Shredder/Granulator Operator Relationship Specialty Start Date End Date Williams Farrell DO [address] [facility] [place] [address] PCP - General Internal Medicine 04/26/23 Meenu Garay MD [address] [place] [address] Physician Radiation Oncology 09/06/16 Carla Almonte RN Specialty Health Concierge Oncology 07/06/17 Meenu Garay MD [address] [place] [address] Physician Radiation Oncology 04/12/19 Mayco Galeano MD [address] [place] [address] Cardiology 08/18/22 Shredder/Granulator Operator Relationship Specialty Start Date End Date Williams Farrell DO [address] [facility] [place] [address] PCP - General Internal Medicine 04/26/23 Meenu Garay MD [address] [place] [address] Physician Radiation Oncology 09/06/16 Carla Almonte RN Specialty Health Concierge Oncology 07/06/17 Meenu Garay MD [address] [place] [address] Physician Radiation Oncology 04/12/19 Mayco Galeano MD [address] [place] [address] Cardiology 08/18/22 Shredder/Granulator Operator Relationship Specialty Start Date End Date Williams Farrell DO 53 [facility] [place] [address] PCP - General Internal Medicine 04/26/23 Meenu Garay MD [address] [place] [address] Physician Radiation Oncology 09/06/16 Carla Almonte RN Specialty Health Concierge Oncology 07/06/17 Meenu Garay MD [address] [place] [address] Physician Radiation Oncology 04/12/19 Mayco Galeano MD [address] [place] [address] Cardiology 08/18/22 Shredder/Granulator Operator Relationship Specialty Start Date End Date Williams Farrell DO 53 [facility] Physician [facility] [place] [address] PCP - General Internal Medicine 04/26/23 Meenu Garay MD [address] [place] [address] Physician Radiation Oncology 09/06/16 Carla Almonte RN Specialty Health Concierge Oncology 07/06/17 Meenu Garay MD [address] [place] [address] Physician Radiation Oncology 04/12/19 Mayco Galeano MD [address] [place] [address] Cardiology 08/18/22 Shredder/Granulator Operator Relationship Specialty Start Date End Date Williams Farrell DO [address] [facility] [place] [address] PCP - General Internal Medicine 04/26/23 Meenu Garay MD [address] [place] [address] Physician Radiation Oncology 09/06/16 Carla Almonte RN Specialty Health Concierge Oncology 07/06/17 Meenu Garay MD [address] [place] [address] Physician Radiation Oncology 04/12/19 Mayco Galeano MD [address] [place] [address] Cardiology 08/18/22 Shredder/Granulator Operator Relationship Specialty Start Date End Date Williams Farrell DO 53 [facility] Physician [facility] [place] [address] PCP - General Internal Medicine 04/26/23 Meenu Garay MD [address] [place] [address] Physician Radiation Oncology 09/06/16 Carla Almonte RN Specialty Health Concierge Oncology 07/06/17 Meenu Garay MD [address] [place] [address] Physician Radiation Oncology 04/12/19 Mayco Galeano MD [address] [place] [address], [place] [address] Cardiology 08/18/22 Shredder/Granulator Operator Relationship Specialty Start Date End Date Williams Farrell DO 53 [facility] [place] [address] PCP - General Internal Medicine 04/26/23 Meenu Garay MD [address] [place] [address] Physician Radiation Oncology 09/06/16 Carla Almonte RN Specialty Health Concierge Oncology 07/06/17 Meenu Garay MD [address] [place] [address] Physician Radiation Oncology 04/12/19 Mayco Galeano MD [address] [place] [address], [place] [address] Cardiology 08/18/22 Shredder/Granulator Operator Relationship Specialty Start Date End Date Williams Farrell DO [address] [facility] [place] [address] PCP - General Internal Medicine 04/26/23 Meenu Garay MD [address] [place] [address] Physician Radiation Oncology 09/06/16 Carla Almonte RN Specialty Health Concierge Oncology 07/06/17 Meenu Garay MD [address] [place] [address] Physician Radiation Oncology 04/12/19 Mayco Galeano MD [address] [address] Cardiology 08/18/22 Shredder/Granulator Operator Relationship Specialty Start Date End Date Williams Farrell DO [address] [facility] [place] [address] PCP - General Internal Medicine 04/26/23 Meenu Garay MD [address] [place] [address] Physician Radiation Oncology 09/06/16 Carla Almonte RN Specialty Health Concierge Oncology 07/06/17 Meenu Garay MD [address] [place] [address] Physician Radiation Oncology 04/12/19 Mayco Galeano MD [address] [place] [address] Cardiology 08/18/22 Shredder/Granulator Operator Relationship Specialty Start Date End Date Williams Farrell DO 53 [facility] [place] [address] PCP - General Internal Medicine 04/26/23 Meenu Garay MD [address] [place] [address] Physician Radiation Oncology 09/06/16 Carla Almonte, RN Specialty Health Concierge Oncology 07/06/17 Meenu Garay MD [address] [place] [address] Physician Radiation Oncology 04/12/19 Mayco Galeano MD [address] [place] [address] Cardiology 08/18/22 Shredder/Granulator Operator Relationship Specialty Start Date End Date Williams Farrell DO 53 [facility] [place] [address] PCP - General Internal Medicine 04/26/23 Meenu Garay MD [address] [place] [address] Physician Radiation Oncology 09/06/16 Carla Almonte RN Specialty Health Concierge Oncology 07/06/17 Meenu Garay MD [address] [place] [address] Physician Radiation Oncology 04/12/19 Mayco Galeano MD [address] [place] [address] Cardiology 08/18/22 Shredder/Granulator Operator Relationship Specialty Start Date End Date Williams Farrell DO [address] [facility] [place] [address] PCP - General Internal Medicine 04/26/23 Meenu Garay MD [address] [place] [address] Physician Radiation Oncology 09/06/16 Carla Almonte RN Specialty Health Concierge Oncology 07/06/17 Meenu Garay MD [address] [place] [address] Physician Radiation Oncology 04/12/19 Mayco Galeano MD [address] [place] [address] Cardiology 08/18/22 Shredder/Granulator Operator Relationship Specialty Start Date End Date Williams Farrell DO [address] [facility] [place] [address] PCP - General Internal Medicine 04/26/23 Meenu Garay MD [address] [place] [address] Physician Radiation Oncology 09/06/16 Carla Almonte RN Specialty Health Concierge Oncology 07/06/17 Meenu Garay MD [address] [place] [address] Physician Radiation Oncology 04/12/19 Mayco Galeano MD [address] [place] [address] Cardiology 08/18/22 Shredder/Granulator Operator Relationship Specialty Start Date End Date Williams Farrell DO [address] [facility] Physician [facility] [place] [address] PCP - General Internal Medicine 04/26/23 Meenu Garay MD [address] [place] [address] Physician Radiation Oncology 09/06/16 Carla Almonte RN Specialty Health Concierge Oncology 07/06/17 Meenu Garay MD [address] [place] [address] Physician Radiation Oncology 04/12/19 Mayco Galeano MD [address] [place] [address] Cardiology 08/18/22 Shredder/Granulator Operator Relationship Specialty Start Date End Date Williams Farrell DO [address] [facility] [place] [address] PCP - General Internal Medicine 04/26/23 Meenu Garay MD [address] [place] [address] Physician Radiation Oncology 09/06/16 Carla Almonte RN Specialty Health Concierge Oncology 07/06/17 Meenu Garay MD [address] [place] [address] Physician Radiation Oncology 04/12/19 Mayco Galeano MD [address] [place] [address] Cardiology 08/18/22 Shredder/Granulator Operator Relationship Specialty Start Date End Date Williams Farrell DO [address] [facility] [place] [address] PCP - General Internal Medicine 04/26/23 Meenu Garay MD [address] [place] [address] Physician Radiation Oncology 09/06/16 Carla Almonte RN Specialty Health Concierge Oncology 07/06/17 Meenu Garay MD [address] [place] [address] Physician Radiation Oncology 04/12/19 Mayco Galeano MD [address] [place] [address] Cardiology 08/18/22 Shredder/Granulator Operator Relationship Specialty Start Date End Date Williams Farrell DO [address] [facility] [place] [address] PCP - General Internal Medicine 04/26/23 Meenu Garay MD [address] [place] [address] Physician Radiation Oncology 09/06/16 Carla Almonte RN Specialty Health Concierge Oncology 07/06/17 Meenu Garay MD [address] [place] [address] Physician Radiation Oncology 04/12/19 Mayco Galeano MD [address] [place] [address] Cardiology 08/18/22 Shredder/Granulator Operator Relationship Specialty Start Date End Date Williams Farrell DO [address] [facility] [place] [address] PCP - General Internal Medicine 04/26/23 Meenu Garay MD [address] [place] [address] Physician Radiation Oncology 09/06/16 Carla Almonte RN Specialty Health Concierge Oncology 07/06/17 Meenu Garay MD [address] [place] [address] Physician Radiation Oncology 04/12/19 Mayco Galeano MD [address] [place] [address] Cardiology 08/18/22 Shredder/Granulator Operator Relationship Specialty Start Date End Date Williams Farrell DO [address] [facility] [place] [address] PCP - General Internal Medicine 04/26/23 Meenu Garay MD [address] [place] [address] Physician Radiation Oncology 09/06/16 Carla Almonte RN Specialty Health Concierge Oncology 07/06/17 Meenu Garay MD [address] [place] [address] Physician Radiation Oncology 04/12/19 Mayco Galeano MD [address] [place] [address] Cardiology 08/18/22 Rip Rivers DO [address] [place] [address] Hematology/Oncology 10/14/23 Shredder/Granulator Operator Relationship Specialty Start Date End Date Williams Farrell DO [address] [facility] [place] [address] PCP - General Internal Medicine 04/26/23 Meenu Garay MD [address] [place] [address] Physician Radiation Oncology 09/06/16 Carla Almonte RN Specialty Health Concierge Oncology 07/06/17 Meenu Garay MD [address] [place] [address] Physician Radiation Oncology 04/12/19 Mayco Galeano MD [address] [place] [address] Cardiology 08/18/22 Rip Rivers DO [address] [place] [address] Hematology/Oncology 10/14/23 Shredder/Granulator Operator Relationship Specialty Start Date End Date Williams Farrell DO [address] [facility] [place] [address] PCP - General Internal Medicine 04/26/23 Meenu Garay MD [address] [place] [address] Physician Radiation Oncology 09/06/16 Carla Almonte RN Specialty Health Concierge Oncology 07/06/17 Meenu Garay MD [address] [place] [address] Physician Radiation Oncology 04/12/19 Mayco Galeano MD [address] [place] [address] Cardiology 08/18/22 Rip Rivers DO [address] [place] [address] Hematology/Oncology 10/14/23 Shredder/Granulator Operator Relationship Specialty Start Date End Date Williams Farrell DO [address] [facility] Physician [place], [place] [address] PCP - General Internal Medicine 04/26/23 Meenu Garay MD [address] [place] [address] Physician Radiation Oncology 09/06/16 Carla Almonte, RN Specialty Health Concierge Oncology 07/06/17 Meenu Garay MD [address] [place] [address] Physician Radiation Oncology 04/12/19 Mayco Galeano MD [address] [place] [address] Cardiology 08/18/22 Rip Rivers DO [address] [place] [address] Hematology/Oncology 10/14/23 Shredder/Granulator Operator Relationship Specialty Start Date End Date Williams Farrell DO 53 [facility] Physician [facility] [place] [address] PCP - General Internal Medicine 04/26/23 Meenu Garay MD [address] [place] [address] Physician Radiation Oncology 09/06/16 Carla Almonte RN Specialty Health Concierge Oncology 07/06/17 Meenu Garay MD [address] [place] [address] Physician Radiation Oncology 04/12/19 aMyco Galeano MD [address] [place] [address] Cardiology 08/18/22 Rip Rivers DO [address] [place] [address] Hematology/Oncology 10/14/23 Shredder/Granulator Operator Relationship Specialty Start Date End Date Williams Farrell DO [address] [facility] Physician [facility] [place] [address] PCP - General Internal Medicine 04/26/23 Meenu Garay MD [address] [place] [address] Physician Radiation Oncology 09/06/16 Carla Almonte RN Specialty Health Concierge Oncology 07/06/17 Meenu Garay MD [address] [place] [address] Physician Radiation Oncology 04/12/19 Mayco Galeano MD [address] [place] [address] Cardiology 08/18/22 Rip Rivers DO [address] [place] [address] Hematology/Oncology 10/14/23 Shredder/Granulator Operator Relationship Specialty Start Date End Date Williams Farrell DO [address] [facility] [place] [address] PCP - General Internal Medicine 04/26/23 Meenu Garay MD [address] [place] [address] Physician Radiation Oncology 09/06/16 Carla Almonte RN Specialty Health Concierge Oncology 07/06/17 Meenu Garay MD [address] [place] [address] Physician Radiation Oncology 04/12/19 Mayco Galeano MD [address] [place] [place] [address] Cardiology 08/18/22 Rip Rivers DO [address] [place] [address] Hematology/Oncology 10/14/23 Shredder/Granulator Operator Relationship Specialty Start Date End Date Williams Farrell DO [address] [facility] [place] [address] PCP - General Internal Medicine 04/26/23 Meenu Garay MD [address] [place] [address] Physician Radiation Oncology 09/06/16 Carla Almonte, RN Specialty Health Concierge Oncology 07/06/17 Meenu Garay MD [address] [place] [place] [address] Physician Radiation Oncology 04/12/19 Mayco Galeano MD [address] [facility] [place] [address] Cardiology 08/18/22 Rip Rivers DO [address] [place] [address] Hematology/Oncology 10/14/23 Shredder/Granulator Operator Relationship Specialty Start Date End Date Williams Farrell DO [address] [facility] [place] [address] PCP - General Internal Medicine 04/26/23 Meenu Garay MD [address] [place] [address] Physician Radiation Oncology 09/06/16 Carla Almonte RN Specialty Health Concierge Oncology 07/06/17 Meenu Garay MD [address] [place] [address] Physician Radiation Oncology 04/12/19 Mayco Galeano MD [address] [facility] [place] [address] Cardiology 08/18/22 Rip Rivers DO [address] [place] [address] Hematology/Oncology 10/14/23 Shredder/Granulator Operator Relationship Specialty Start Date End Date Williams Farrell DO [address] [facility] [place] [address] PCP - General Internal Medicine 04/26/23 Meenu Garay MD [address] [place] [address] Physician Radiation Oncology 09/06/16 Carla Almonte RN Specialty Health Concierge Oncology 07/06/17 Meenu Garay MD [address] [place] [address] Physician Radiation Oncology 04/12/19 Mayco Galeano MD [address] [address] Cardiology 08/18/22 iRp Rivers DO [address] [place] [address] Hematology/Oncology 10/14/23 Shredder/Granulator Operator Relationship Specialty Start Date End Date Williams Farrell DO [address] [facility] [place] [address] PCP - General Internal Medicine 06/16/23 Shredder/Granulator Operator Relationship Specialty Start Date End Date Williams Farrell DO [address] [facility] [place] [address] PCP - General Internal Medicine 04/26/23 Meenu Garay MD [address] [place] [address] Physician Radiation Oncology 09/06/16 Carla Almonte RN Specialty Health Concierge Oncology 07/06/17 Meenu Garay MD [address] [place] [address] Physician Radiation Oncology 04/12/19 Mayco Galeano MD [address] [place] [address] Cardiology 08/18/22 Rip Rivers DO [address] [place] [address] Hematology/Oncology 10/14/23 Shredder/Granulator Operator Relationship Specialty Start Date End Date Williams Farrell DO [address] [facility] [place] [address] PCP - General Internal Medicine 04/26/23 Meenu Garay MD [address] [place] [address] Physician Radiation Oncology 09/06/16 Carla Almonte RN Specialty Health Concierge Oncology 07/06/17 Meenu Garay MD [address] [place] [address] Physician Radiation Oncology 04/12/19 Mayco Galeano MD [address] [place] [address] Cardiology 08/18/22 Rip Rivers DO [address] [place] [address] Hematology/Oncology 10/14/23 Shredder/Granulator Operator Relationship Specialty Start Date End Date Williams Farrell DO [address] [facility] [place] [address] PCP - General Internal Medicine 04/26/23 Meenu Garay MD [address] [place] [address] Physician Radiation Oncology 09/06/16 Carla Almonte, PRINCE Specialty Health Concierge Oncology 07/06/17 Meenu Garay MD [address] [place] [address] Physician Radiation Oncology 04/12/19 Mayco Galeano MD [address] [place] [address] Cardiology 08/18/22 Rip Rivers DO [address] [place] [address] Hematology/Oncology 10/14/23 Shredder/Granulator Operator Relationship Specialty Start Date End Date Williams Farrell DO [address] [facility] [place] [address] PCP - General Internal Medicine 04/26/23 Meenu Garay MD [address] [place] [address] Physician Radiation Oncology 09/06/16 Carla Almonte RN Specialty Health Concierge Oncology 07/06/17 Meenu Garay MD [address] [place] [address] Physician Radiation Oncology 04/12/19 Mayco Galeano MD [address] [place] [address] Cardiology 08/18/22 Rip Rivers DO [address] [place] [address] Hematology/Oncology 10/14/23 Shredder/Granulator Operator Relationship Specialty Start Date End Date Williams Farrell DO [address] [facility] Physician [place], [place] [address] PCP - General Internal Medicine 04/26/23 Meenu Garay MD [address] [place] [address] Physician Radiation Oncology 09/06/16 Carla Almonte RN Specialty Health Concierge Oncology 07/06/17 Meenu Garay MD [address] [place] [address] Physician Radiation Oncology 04/12/19 Mayco Galeano MD [address] [place] [address] Cardiology 08/18/22 Rip Rivers DO [address] [place] [address] Hematology/Oncology 10/14/23 Shredder/Granulator Operator Relationship Specialty Start Date End Date Williams Farrell DO [address] [facility] [place] [address] PCP - General Internal Medicine 04/26/23 Meenu Garay MD [address] [place] [address] Physician Radiation Oncology 09/06/16 Carla Almonte RN Specialty Health Concierge Oncology 07/06/17 Meenu Garay MD [address] [place] [address] Physician Radiation Oncology 04/12/19 Mayco Galeano MD [address] [place] [address] Cardiology 08/18/22 Rip Rivers DO [address] [place] [address] Hematology/Oncology 10/14/23 Shredder/Granulator Operator Relationship Specialty Start Date End Date Williams Farrell DO [address] [facility] [place] [address] PCP - General Internal Medicine 04/26/23 Meenu Garay MD [address] [place] [address] Physician Radiation Oncology 09/06/16 Carla Almonte RN Specialty Health Concierge Oncology 07/06/17 Meenu Garay MD [address] [place] [address] Physician Radiation Oncology 04/12/19 Mayco Galeano MD [address] [place] [address] Cardiology 08/18/22 Rip Rivers DO [address] [place] [address] Hematology/Oncology 10/14/23 Shredder/Granulator Operator Relationship Specialty Start Date End Date Williams Farrell DO [address] [facility] Physician [place], [place] [address] PCP - General Internal Medicine 04/26/23 Meenu Garay MD [address] [place] [address] Physician Radiation Oncology 09/06/16 Carla Almonte, PRINCE Specialty Health Concierge Oncology 07/06/17 Meenu Gaary MD [address] [place] [address] Physician Radiation Oncology 04/12/19 Mayco Galeano MD [address] [place] [address] Cardiology 08/18/22 Rip Rivesr DO [address] [place] [address] Hematology/Oncology 10/14/23 Shredder/Granulator Operator Relationship Specialty Start Date End Date Williams Farrell DO [address] [facility] [place] [address] PCP - General Internal Medicine 04/26/23 Meenu Garay MD [address] [place] [address] Physician Radiation Oncology 09/06/16 Carla Almonte RN Specialty Health Concierge Oncology 07/06/17 Meenu Garay MD [address] [place] [address] Physician Radiation Oncology 04/12/19 Mayco Galeano MD [address] [place] [address] Cardiology 08/18/22 Rip Rivers DO [address] [place] [address] Hematology/Oncology 10/14/23 Shredder/Granulator Operator Relationship Specialty Start Date End Date Williams Farrell DO [address] [facility] [place] [address] PCP - General Internal Medicine 04/26/23 Meenu Garay MD [address] [place] [address] Physician Radiation Oncology 09/06/16 Carla Almonte RN Specialty Health Concierge Oncology 07/06/17 Meenu Garay MD [address] [place] [address] Physician Radiation Oncology 04/12/19 Mayco Galeano MD [address] [place] [address] Cardiology 08/18/22 Rip Rivers DO [address] [place] [address] Hematology/Oncology 10/14/23 Shredder/Granulator Operator Relationship Specialty Start Date End Date Williams Farrell DO [address] [facility] Physician [facility] [place] [address] PCP - General Internal Medicine 04/26/23 Meenu Garay MD [address] [place] [address] Physician Radiation Oncology 09/06/16 Carla Almonte, PRINCE Specialty Health Concierge Oncology 07/06/17 Meenu Garay MD [address] [place] [address] Physician Radiation Oncology 04/12/19 Mayco Galeano MD [address] [place] [address] Cardiology 08/18/22 Rip Rivers DO [address] [place] [address] Hematology/Oncology 10/14/23 Shredder/Granulator Operator Relationship Specialty Start Date End Date Williams Farrell DO [address] [facility] Physician [facility] [place] [address] PCP - General Internal Medicine 04/26/23 Meenu Garay MD [address] [place] [address] Physician Radiation Oncology 09/06/16 Carla Almonte RN Specialty Health Concierge Oncology 07/06/17 Meenu Garay MD [address] [place] [address] Physician Radiation Oncology 04/12/19 Mayco Galeano MD [address] [place] [address] Cardiology 08/18/22 Rip Rivers DO [address] [place] [address] Hematology/Oncology 10/14/23 Shredder/Granulator Operator Relationship Specialty Start Date End Date Williams Farrell DO [address] [facility] [place] [address] PCP - General Internal Medicine 04/26/23 Meenu Garay MD [address] [place] [address] Physician Radiation Oncology 09/06/16 Carla Almonte RN Specialty Health Concierge Oncology 07/06/17 Meenu Garay MD [address] [place] [address] Physician Radiation Oncology 04/12/19 Mayco Galeano MD [address] [place] [address] Cardiology 08/18/22 Rip Rivers DO [address] [place] [address] Hematology/Oncology 10/14/23 Shredder/Granulator Operator Relationship Specialty Start Date End Date Williams Farrell DO [address] [facility] [place] [address] PCP - General Internal Medicine 04/26/23 Meenu Garay MD [address] [place] [address] Physician Radiation Oncology 09/06/16 Carla Almonte RN Specialty Health Concierge Oncology 07/06/17 Meenu Garay MD [address] [place] [address] Physician Radiation Oncology 04/12/19 Mayco Galeano MD [address] [place] [address] Cardiology 08/18/22 Rip Rivers DO [address] [place] [address] Hematology/Oncology 10/14/23 Shredder/Granulator Operator Relationship Specialty Start Date End Date Williams Farrell DO [address] [facility] [place] [address] PCP - General Internal Medicine 04/26/23 Meenu Garay MD [address] [place] [address] Physician Radiation Oncology 09/06/16 Carla Almonte RN Specialty Health Concierge Oncology 07/06/17 Meenu Garay MD [address] [place] [address] Physician Radiation Oncology 04/12/19 Mayco Galeano MD [address] [place] [address] Cardiology 08/18/22 Rip Rivers DO [address] [place] [address] Hematology/Oncology 10/14/23 Shredder/Granulator Operator Relationship Specialty Start Date End Date Williams Farrell DO [address] [facility] Physician [place], [place] [id number] PCP - General Internal Medicine 04/26/23 Meenu Garay MD [address] [place] [address] Physician Radiation Oncology 09/06/16 Carla Almonte RN Specialty Health Concierge Oncology 07/06/17 Meenu Garay MD [address] [place] [address] Physician Radiation Oncology 04/12/19 Mayco Galeano MD [address] [place] [address] Cardiology 08/18/22 Rip Rivers DO [address] [place] [address] Hematology/Oncology 10/14/23 Shredder/Granulator Operator Relationship Specialty Start Date End Date Williams Farrell DO [address] [facility] [place] [address] PCP - General Internal Medicine 04/26/23 Meenu Garay MD [address] [place] [place] [address] Physician Radiation Oncology 09/06/16 Carla Almonte RN Specialty Health Concierge Oncology 07/06/17 Meenu Garay MD [address] [place] [address] Physician Radiation Oncology 04/12/19 aMyco Galeano MD [address] [place] [address] Cardiology 08/18/22 Rip Rivers DO [address] [place] [place] [address] Hematology/Oncology 10/14/23 Shredder/Granulator Operator Relationship Specialty Start Date End Date Williams Farrell DO [address] [facility] [place] [address] PCP - General Internal Medicine 04/26/23 Meenu Garay MD [address] [place] [address] Physician Radiation Oncology 09/06/16 Carla Almonte RN Specialty Health Concierge Oncology 07/06/17 Meenu Garay MD [address] [place] [place] [address] Physician Radiation Oncology 04/12/19 Mayco Galeano MD [address] [place] [address] Cardiology 08/18/22 Rip Rivres DO [address] [place] [address] Hematology/Oncology 10/14/23 Shredder/Granulator Operator Relationship Specialty Start Date End Date Williams Farrell DO [address] [facility] [place] [address] PCP - General Internal Medicine 04/26/23 Meenu Garay MD [address] [place] [address] Physician Radiation Oncology 09/06/16 Carla Almonte RN Specialty Health Concierge Oncology 07/06/17 Meenu Garay MD [address] [place] [address] Physician Radiation Oncology 04/12/19 Mayco Galeano MD [address] [place] [address] Cardiology 08/18/22 Rip Rivers DO [address] [place] [address] Hematology/Oncology 10/14/23 Shredder/Granulator Operator Relationship Specialty Start Date End Date Williams Farrell DO [address] [facility] [place] [address] PCP - General Internal Medicine 04/26/23 Meenu Garay MD [address] [place] [address] Physician Radiation Oncology 09/06/16 Carla Almonte, RN Specialty Health Concierge Oncology 07/06/17 Meenu Garay MD [address] [place] [address] Physician Radiation Oncology 04/12/19 Mayco Galeano MD [address] [place] [address] Cardiology 08/18/22 Rip Rivers DO [address] [place] [address] Hematology/Oncology 10/14/23 Shredder/Granulator Operator Relationship Specialty Start Date End Date Williams Farrell DO [address] [facility] [place] [address] PCP - General Internal Medicine 04/26/23 Meenu Garay MD [address] [place] [address] Physician Radiation Oncology 09/06/16 Carla Almonte RN Specialty Health Concierge Oncology 07/06/17 Meenu Garay MD [address] [place] [address] Physician Radiation Oncology 04/12/19 Mayco Galeano MD [address] [place] [address] Cardiology 08/18/22 Rip Rivers DO [address] [place] [address] Hematology/Oncology 10/14/23 Shredder/Granulator Operator Relationship Specialty Start Date End Date Williams Farrell DO [address] [facility] [place] [address] PCP - General Internal Medicine 04/26/23 Meenu Garay MD [address] [place] [address] Physician Radiation Oncology 09/06/16 Carla Almonte RN Specialty Health Concierge Oncology 07/06/17 Meenu Garay MD [address] [place] [address] Physician Radiation Oncology 04/12/19 Mayco Galeano MD [address] [place] [address] Cardiology 08/18/22 Rip Rivers DO [address] [place] [address] Hematology/Oncology 10/14/23 Shredder/Granulator Operator Relationship Specialty Start Date End Date Williams Farrell DO [address] [facility] [place] [address] PCP - General Internal Medicine 04/26/23 Meenu Garay MD [address] [place] [address] Physician Radiation Oncology 09/06/16 Carla Almonte RN Specialty Health Concierge Oncology 07/06/17 Meenu Garay MD [address] [place] [address] Physician Radiation Oncology 04/12/19 Mayco Galeano MD [address] [place] [address] Cardiology 08/18/22 Rip Rivers DO [address] [place] [address] Hematology/Oncology 10/14/23 Shredder/Granulator Operator Relationship Specialty Start Date End Date Williams Farrell DO [address] [facility] [place] [address] PCP - General Internal Medicine 04/26/23 Meenu Garay MD [address] [place] [address] Physician Radiation Oncology 09/06/16 Carla Almonte RN Specialty Health Concierge Oncology 07/06/17 Meenu Garay MD [address] [place] [address] Physician Radiation Oncology 04/12/19 Mayco Galeano MD [address] [place] [address] Cardiology 08/18/22 Rip Rivers DO [address] [place] [address] Hematology/Oncology 10/14/23 Shredder/Granulator Operator Relationship Specialty Start Date End Date Williams Farrell DO [address] [facility] Physician [place], [place] [id number] PCP - General Internal Medicine 04/26/23 Meenu Garay MD [address] [place], [place] [address] [phone] Physician Radiation Oncology 09/06/16 Carla Almonte RN Specialty Health Concierge Oncology 07/06/17 Meenu Garay MD [address] [place] [address] Physician Radiation Oncology 04/12/19 Mayco Galeano MD [address] [place] [address] Cardiology 08/18/22 Rip Rivers DO [address] [place] [address] Hematology/Oncology 10/14/23 Shredder/Granulator Operator Relationship Specialty Start Date End Date Isac Billingsley MD [address] [place] [address] PCP - General Family Medicine 07/04/24 Meenu Garay MD [address] [place] [address] Physician Radiation Oncology 09/06/16 Carla Almonte, RN Specialty Health Concierge Oncology 07/06/17 Meenu Garay MD [address] [place] [address] Physician Radiation Oncology 04/12/19 Mayco Galeano MD [address] [place] [address] Cardiology 08/18/22 Rip Rivers DO [address] [place] [address] Hematology/Oncology 10/14/23 Shredder/Granulator Operator Relationship Specialty Start Date End Date Isac Billingsley MD [address] [place] [address] PCP - General Family Medicine 07/04/24 Meenu Garay MD [address] [place] [address] Physician Radiation Oncology 09/06/16 Carla Almonte RN Specialty Health Concierge Oncology 07/06/17 Meenu Garay MD [address] [place] [address] Physician Radiation Oncology 04/12/19 Mayco Galeano MD [address] [place] [address] Cardiology 08/18/22 Rip Rivers DO [address] [place] [address] Hematology/Oncology 10/14/23 Shredder/Granulator Operator Relationship Specialty Start Date End Date Isac Billingsley MD [address] [place] [address] PCP - General Family Medicine 07/04/24 Meenu Garay MD [address] [place] [address] Physician Radiation Oncology 09/06/16 Carla Almonte RN Specialty Health Concierge Oncology 07/06/17 Meenu Garay MD [address] [place] [address] Physician Radiation Oncology 04/12/19 Mayco Galeano MD [address] [facility] [place] [address] Cardiology 08/18/22 Rip Rivers DO [address] [place] [address] Hematology/Oncology 10/14/23 Shredder/Granulator Operator Relationship Specialty Start Date End Date Isac Billingsley MD [address] [place] [address] PCP - General Family Medicine 07/04/24 Meenu Garay MD [address] [place] [address] Physician Radiation Oncology 09/06/16 Carla Almonte RN Specialty Health Concierge Oncology 07/06/17 Meenu Garay MD [address] [place] [address] Physician Radiation Oncology 04/12/19 Mayco Galeano MD [address] [place] [address] Cardiology 08/18/22 Rip Rivers DO [address] [place] [address] Hematology/Oncology 10/14/23 Shredder/Granulator Operator Relationship Specialty Start Date End Date Williams Farrell DO [address] [facility] Physician [place], [place] [id number] PCP - General Internal Medicine 04/26/23 07/03/24 Isac Billingsley MD [address] [place] [address] PCP - General Family Medicine 07/04/24 Meenu Garay MD [address] [place] [address] Physician Radiation Oncology 09/06/16 Carla Almonte, PRINCE Specialty Health Concierge Oncology 07/06/17 Meenu Garay MD [address] [place] [address] Physician Radiation Oncology 04/12/19 Mayco Galeano MD [address] [facility] [place] [address] Cardiology 08/18/22 Rip Rivers DO [address] [place] [address] Hematology/Oncology 10/14/23 Shredder/Granulator Operator Relationship Specialty Start Date End Date Isac Billingsley MD [address] [place] [address] PCP - General Family Medicine 07/04/24 Meenu Garay MD [address] [place] [address] Physician Radiation Oncology 09/06/16 Carla Almonte RN Specialty Health Concierge Oncology 07/06/17 Meenu Garay MD [address] [place] [address] Physician Radiation Oncology 04/12/19 Mayco Galeano MD [address] [place] [address] Cardiology 08/18/22 Rip Rivers DO [address] [place] [address] Hematology/Oncology 10/14/23 Shredder/Granulator Operator Relationship Specialty Start Date End Date Isac Billingsley MD [address] [place] [address] PCP - General Family Medicine 07/04/24 Meenu Garay MD [address] [place] [address] Physician Radiation Oncology 09/06/16 Carla Almonte RN Specialty Health Concierge Oncology 07/06/17 Meenu Garay MD [address] [place] [address] Physician Radiation Oncology 04/12/19 Mayco Galeano MD [address] [place] [address] Cardiology 08/18/22 Rip Rivers DO [address] [place] [address] Hematology/Oncology 10/14/23 Shredder/Granulator Operator Relationship Specialty Start Date End Date Isac Billingsley MD [address] [place] [address] PCP - General Family Medicine 07/04/24 Meenu Garay MD [address] [place] [address] Physician Radiation Oncology 09/06/16 Carla Almonte RN Specialty Health Concierge Oncology 07/06/17 Meenu Garay MD [address] [place] [address] Physician Radiation Oncology 04/12/19 Mayco Galeano MD [address] [place] [address] Cardiology 08/18/22 Rip Rivers DO [address] [place] [address] Hematology/Oncology 10/14/23 Shredder/Granulator Operator Relationship Specialty Start Date End Date Isac Billingsley MD [address] [place] [phone] PCP - General Family Medicine 07/04/24 Meenu Garay MD [address] [place] [address] Physician Radiation Oncology 09/06/16 Carla Almonte RN Specialty Health Concierge Oncology 07/06/17 Meenu Garay MD [address] [place] [address] Physician Radiation Oncology 04/12/19 Mayco Galeano MD [address] [place] [address] Cardiology 08/18/22 Rip Rivers DO [address] [place] [address] Hematology/Oncology 10/14/23 Shredder/Granulator Operator Relationship Specialty Start Date End Date Isac Billingsley MD [address] [place] [address] PCP - General Family Medicine 07/04/24 Meenu Garay MD [address] [place] [address] Physician Radiation Oncology 09/06/16 Carla Almonte RN Specialty Health Concierge Oncology 07/06/17 Meenu Garay MD [address] [place] [address] Physician Radiation Oncology 04/12/19 Mayco Galeano MD [address] [place] [address] Cardiology 08/18/22 Rip Rivers DO [address] [place] [address] Hematology/Oncology 10/14/23 Shredder/Granulator Operator Relationship Specialty Start Date End Date Isac Billingsley MD [address] [place] [address] PCP - General Family Medicine 07/04/24 Meenu Garay MD [address] [place], [place] [address] [phone] Physician Radiation Oncology 09/06/16 Carla Almonte RN Specialty Health Concierge Oncology 07/06/17 Meenu Garay MD [address] [place] [address] Physician Radiation Oncology 04/12/19 Mayco Galeano MD [address] [address] Cardiology 08/18/22 Rip Rivers DO [address] [place] [address] Hematology/Oncology 10/14/23 Shredder/Granulator Operator Relationship Specialty Start Date End Date Isac Billingsley MD [address] [place] [address] PCP - General Family Medicine 07/04/24 Meenu Garay MD [address] [place] [address] Physician Radiation Oncology 09/06/16 Carla Almonte RN Specialty Health Concierge Oncology 07/06/17 Meenu Garay MD [address] [place] [address] Physician Radiation Oncology 04/12/19 Mayco Galeano MD [address] [place] [address] Cardiology 08/18/22 Rip Rivers DO [address] [place] [address] Hematology/Oncology 10/14/23 Shredder/Granulator Operator Relationship Specialty Start Date End Date Isac Billingsley MD [address] [place] [address] PCP - General Family Medicine 07/04/24 Meenu Garay MD [address] [place] [address] Physician Radiation Oncology 09/06/16 Carla Almonte RN Specialty Health Concierge Oncology 07/06/17 Meenu Garay MD [address] [place] [address] Physician Radiation Oncology 04/12/19 Mayco Galeano MD [address] [place] [address] Cardiology 08/18/22 Rip Rivers DO [address] [place] [address] Hematology/Oncology 10/14/23 Shredder/Granulator Operator Relationship Specialty Start Date End Date Isac Billingsley MD [address] [place] [address] PCP - General Family Medicine 07/04/24 Meenu Garay MD [address] [place] [address] Physician Radiation Oncology 09/06/16 Carla Almonte RN Specialty Health Concierge Oncology 07/06/17 Meenu Garay MD [address] [place] [address] Physician Radiation Oncology 04/12/19 Mayco Galeano MD [address] [place] [address] Cardiology 08/18/22 Rip Rivers DO [address] [place] [address] Hematology/Oncology 10/14/23 Shredder/Granulator Operator Relationship Specialty Start Date End Date Isac Billingsley MD [address] [place] [address] PCP - General Family Medicine 07/04/24 Meenu Garay MD [address] [place] [address] Physician Radiation Oncology 09/06/16 Carla Almonte RN Specialty Health Concierge Oncology 07/06/17 Meenu Garay MD [address] [place] [address] Physician Radiation Oncology 04/12/19 Mayco Galeano MD [address] [place] [address] Cardiology 08/18/22 Rip Rivers DO [address] [place] [address] Hematology/Oncology 10/14/23 Shredder/Granulator Operator Relationship Specialty Start Date End Date Isac Billingsley MD [address] [place] [address] PCP - General Family Medicine 07/04/24 Meenu Garay MD [address] [place] [address] Physician Radiation Oncology 09/06/16 Carla Almonte RN Specialty Health Concierge Oncology 07/06/17 Meenu Garay MD [address] [place] [address] Physician Radiation Oncology 04/12/19 Mayco Galeano MD [address] [place] [address] Cardiology 08/18/22 Rip Rivers DO [address] [place] [address] Hematology/Oncology 10/14/23 Shredder/Granulator Operator Relationship Specialty Start Date End Date Isac Billingsley MD [address] [place] [address] PCP - General Family Medicine 07/04/24 Meenu Garay MD [address] [place] [address] Physician Radiation Oncology 09/06/16 Carla Almonte RN Specialty Health Concierge Oncology 07/06/17 Meenu Garay MD [address] [place] [address] Physician Radiation Oncology 04/12/19 Mayco Galeano MD [address] [place] [address] Cardiology 08/18/22 Rip Rivers DO [address] [place] [address] Hematology/Oncology 10/14/23 Shredder/Granulator Operator Relationship Specialty Start Date End Date Isac Billingsley MD [address] [place] [address] PCP - General Family Medicine 07/04/24 Meenu Garay MD [address] [place] [address] Physician Radiation Oncology 09/06/16 Carla Almonte RN Specialty Health Concierge Oncology 07/06/17 Meenu Garay MD [address] [place] [address] Physician Radiation Oncology 04/12/19 Mayco Galeano MD [address] [place] [address] Cardiology 08/18/22 Rip Rivers DO [address] [place] [address] Hematology/Oncology 10/14/23 Shredder/Granulator Operator Relationship Specialty Start Date End Date Isac Billingsley MD [address] [place] [phone] PCP - General Family Medicine 07/04/24 Meenu Garay MD [address] [place] [address] Physician Radiation Oncology 09/06/16 Carla Almonte RN Specialty Health Concierge Oncology 07/06/17 Meenu Garay MD [address] [place] [address] Physician Radiation Oncology 04/12/19 Mayco Galeano MD [address] [place] [address] Cardiology 08/18/22 Rip Rivers DO [address] [place] [address] Hematology/Oncology 10/14/23 Shredder/Granulator Operator Relationship Specialty Start Date End Date Isac Billingsley MD [address] [place] [phone] PCP - General Family Medicine 07/04/24 Meenu Garay MD [address] [place] [address] Physician Radiation Oncology 09/06/16 Carla Almonte RN Specialty Health Concierge Oncology 07/06/17 Meenu Garay MD [address] [place] [address] Physician Radiation Oncology 04/12/19 Mayco Galeano MD [address] [facility] [address] [place], [place] [address] Cardiology 08/18/22 Rip Rivers DO [address] [place], [place] [address] Hematology/Oncology 10/14/23 Team Status: Active Member Role Status Dates Dr. Isac Billingsley MD Primary Care Provider Active Team Status: Inactive Member Role Status Dates Dr. Rip Rivers DO Attending Provider Active St art: September 13, 2024 End: September 13, 2024 Dr. Rip Rivers DO Referring Provider Active St art: September 13, 2024 End: September 13, 2024 Dr. Isac Billingsley MD Primary Care Provider Active Start: September 13, 2024 End: September 13, 2024 Team Status: Active Member Role Status Dates Dr. Isac Billingsley MD Primary Care Provider Active Start: September 13, 2024 Dr. Mayco Galeano MD Attending Provider Active S tart: September 13, 2024 Shredder/Granulator Operator Relationship Specialty Start Date End Date Isac Billingsley MD [address] [facility], [facility] [address] [place] [address] PCP - General Family Medicine 09/28/24 Shredder/Granulator Operator Relationship Specialty Start Date End Date Isac Billingsley MD [address] [place] [address] PCP - General Family Medicine 07/04/24 Meenu Garay MD [address] [place], [place] [address] Physician Radiation Oncology 09/06/16 Carla Almonte RN Specialty Health Concierge Oncology 07/06/17 Meenu Garay MD [address] [place] [address] Physician Radiation Oncology 04/12/19 Mayco Galeano MD [address] [place] [address] Cardiology 08/18/22 Rip Rivers DO [address] [place] [address] Hematology/Oncology 10/14/23 Shredder/Granulator Operator Relationship Specialty Start Date End Date Isac Billingsley MD [address] [place] [id number] PCP - General Family Medicine 07/04/24 Meenu Garay MD [address] [place] [address] Physician Radiation Oncology 09/06/16 Carla Almonte RN Specialty Health Concierge Oncology 07/06/17 Meenu Garay MD [address] [place] [address] Physician Radiation Oncology 04/12/19 Mayco Galeano MD [address] [place] [address] Cardiology 08/18/22 Rip Rivers DO [address] [place] [address] Hematology/Oncology 10/14/23 Shredder/Granulator Operator Relationship Specialty Start Date End Date Isac Billingsley MD [address] [place] [address] PCP - General Family Medicine 07/04/24 Meenu Garay MD [address] [place] [address] Physician Radiation Oncology 09/06/16 Carla Almonte RN Specialty Health Concierge Oncology 07/06/17 Meenu Garay MD [address] [place] [address] Physician Radiation Oncology 04/12/19 Mayco Galeano MD [address] [place] [address], [place] [address] Cardiology 08/18/22 Rip Rivers DO [address] [place] [address] Hematology/Oncology 10/14/23 Shredder/Granulator Operator Relationship Specialty Start Date End Date Isac Billingsley MD [address] [place] [address] PCP - General Family Medicine 07/04/24 Meenu Garay MD [address] [place] [address] Physician Radiation Oncology 09/06/16 Carla Almonte RN Specialty Health Concierge Oncology 07/06/17 Meenu Garay MD [address] [place] [address] Physician Radiation Oncology 04/12/19 Mayco Galeano MD [address] [place] [address] Cardiology 08/18/22 Rip Rivers DO [address] [address] [place] [address] Hematology/Oncology 10/14/23 Shredder/Granulator Operator Relationship Specialty Start Date End Date Isac Billingsley MD [address] [facility] [place] [phone] PCP - General Family Medicine 07/04/24 Meenu Garay MD [address] [place] [address] Physician Radiation Oncology 09/06/16 Carla Almonte RN Specialty Health Concierge Oncology 07/06/17 Meenu Garay MD [address] [place] [address] Physician Radiation Oncology 04/12/19 Mayco Galeano MD [address] [facility] [address] [place] [address] Cardiology 08/18/22 Rip Rivers DO [address] [place] [address] Hematology/Oncology 10/14/23 Shredder/Granulator Operator Relationship Specialty Start Date End Date Isac Billingsley MD [address] [place] [place] [phone] PCP - General Family Medicine 07/04/24 Meenu Garay MD [address] [place] [place] [address] Physician Radiation Oncology 09/06/16 Calra Almonte RN Specialty Health Concierge Oncology 07/06/17 Meenu Garay MD [address] [place] [address] Physician Radiation Oncology 04/12/19 Mayco Galeano MD [address] [place] [address] Cardiology 08/18/22 Rip Rivers DO [address] [place] [address] Hematology/Oncology 10/14/23 Shredder/Granulator Operator Relationship Specialty Start Date End Date Isac Billingsley MD [address] [place] [address] PCP - General Family Medicine 07/04/24 Meenu Garay MD [address] [place] [address] Physician Radiation Oncology 09/06/16 Carla Almonte RN Specialty Health Concierge Oncology 07/06/17 Meenu Garay MD [address] [place] [address] Physician Radiation Oncology 04/12/19 Mayco Galeano MD [address] [place] [address] Cardiology 08/18/22 Rip Rivers DO [address] [place] [address] Hematology/Oncology 10/14/23 Shredder/Granulator Operator Relationship Specialty Start Date End Date Isac Billingsley MD [address] [place] [address] PCP - General Family Medicine 07/04/24 Meenu Garay MD [address] [place] [address] Physician Radiation Oncology 09/06/16 Carla Almonte, RN Specialty Health Concierge Oncology 07/06/17 Meenu Garay MD [address] [place] [address] Physician Radiation Oncology 04/12/19 Mayco Galeano MD [address] [place] [address] Cardiology 08/18/22 Rip Rivres DO [address] [place] [address] Hematology/Oncology 10/14/23 Shredder/Granulator Operator Relationship Specialty Start Date End Date Isac Billingsley MD [address] [place] [phone] PCP - General Family Medicine 07/04/24 Meenu Garay MD [address] [place] [address] Physician Radiation Oncology 09/06/16 Carla Almonte RN Specialty Health Concierge Oncology 07/06/17 Meenu Garay MD [address] [place] [address] Physician Radiation Oncology 04/12/19 Mayco Galeano MD [address] [phone] Cardiology 08/18/22 Rip Rivers DO [address] [place] [address] Hematology/Oncology 10/14/23 Reason for Visit (unrecogniz ed section and content) Reason Comments Radiology NM Specialty Diagnoses / Procedures Referred By Contac t Referred To Contact MOLECULAR & FUNCTIONAL IMAGING Diagnoses Malignant neoplasm of lower-inner quadrant of right breast of female, estrogen receptor positive (HCC) Bone metastases (HCC) Procedures NM PET/CT SKULL-THIGH INITIAL PET IMAGING CT ATTENUATION SKULL BASE MID-THIGH Rip Rivers DO [address] [facility] [place] [address] Molecular & Functional Imaging [address] [place] [address] Referral ID Status Reason Start Date Expiration Date V isits Requested Visits Authorized [id number] Closed Auto-Generate d Referral 08/12/2021 09/11/2022 1 1 Reason Comments Established Patient Reason Comments Port Flush Reason Comments Health Concierge - Other Follow-up/US Reason Comments Reason Comments Health Concierge - Other Nutrition Consu lt/Treatment Question Reason Comments First Time Treatment Education Enhertu Reason Comments Benefits Investigation Reason Comments Radiology US Specialty Diagnoses / Procedures Referred By Contac t Referred To Contact US IMAGING Diagnoses Thyroid nodule Procedures US THYROID/PARATHYROID US SOFT TISSUE HEAD & NECK REAL TIME IMGE DOCM Rip Rivers DO [address] [facility] [place] [address] Us Imaging Referral ID Status Reason Start Date Expiration Date V isits Requested Visits Authorized [id number] Closed Auto-Generate d Referral 09/02/2021 10/02/2022 1 1 Reason Comments Social Work Services Reason Comments Nutrition Assessment Reason Comments Chemotherapy Treatment Specialty Diagnoses / Procedures Referred By Contac t Referred To Contact Diagnoses Malignant neoplasm of lower-inner quadrant of right breast of female, estrogen receptor positive (HCC) Malignant neoplasm metastatic to lung, unspecified laterality (HCC) Bone metastases (HCC) Rip Rivers, DO [address] [facility] [place] [place] [address] [facility] [address] [place] [address] Referral ID Status Reason Start Date Expiration Date V isits Requested Visits Authorized [id number] Authorized 09/02/2021 12/01/2021 99 99 Reason Comments Health Concierge - Other C1D1 Post Treat ment Call Reason Comments Blood Draw (CVAD) Reason Comments Established Patient Reason Comments Orders Reason Comments Established Patient Reason Comments Radiology CT Specialty Diagnoses / Procedures Referred By [facility] Referred To Contact CT IMAGING Diagnoses Malignant neoplasm of lower-inner quadrant of right breast of female, estrogen receptor positive (HCC) Bone metastases (HCC) Skin, 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) Malignant neoplasm of right breast in female, estrogen receptor positive, unspecified site of breast (HCC) Procedures CT CHEST W IVCON DIAGNOSTIC COMPUTED TOMOGRAPHY THORAX W/CONTRAST Caity Cote APRN.TERRITORY DEVELOPMENT MANAGER [address] [place] [address] Ct Imaging Referral ID Status Reason Start Date Expiration Date V isits Requested Visits Authorized [id number] Closed Auto-Generate d Referral 10/21/2021 11/20/2022 1 1 Reason Comments Non-Chemotherapy Treatment Specialty Diagnoses / Procedures Referred By [facility] Referred To Contact Diagnoses Chemotherapy induced diarrhea Bone metastases (HCC) Rip Rivers, DO [address] [facility] [place] [address] [facility] [address] [place] [address] Referral ID Status Reason Start Date Expiration Date V isits Requested Visits Authorized [id number] Authorized 04/09/2021 07/08/2021 99 99 Reason Comments Follow Up Specialty Diagnoses / Procedures Referred By [facility] Referred To Contact Diagnoses Malignant neoplasm of lower-inner quadrant of right breast of female, estrogen receptor positive (HCC) Malignant neoplasm metastatic to lung, unspecified laterality (HCC) Bone metastases (HCC) Rip Rivers, DO [address] [place] [address] [facility] [address] [place] [address] Reason Comments Follow Up review labs for chem o tomorrow Reason Comments Established Patient Reason Comments Orders Specialty Diagnoses / Procedures Referred By [facility] Referred To Contact CT IMAGING Diagnoses Malignant neoplasm of lower-inner quadrant of right breast of female, estrogen receptor positive (HCC) Bone metastases (HCC) Malignant neoplasm metastatic to both lungs (HCC) Skin, 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) Procedures CT CHEST W IVCON DIAGNOSTIC COMPUTED TOMOGRAPHY THORAX W/CONTRAST Caity Cote, EREN.TERRITORY DEVELOPMENT MANAGER [address] [phone] [address] Imaging Referral ID Status Reason Start Date Expiration Date V isits Requested Visits Authorized [id number] Closed Auto-Generate d Referral 12/23/2021 01/22/2023 1 1 Specialty Diagnoses / Procedures Referred By [facility] Referred To Contact Diagnoses Malignant neoplasm of lower-inner quadrant of right breast of female, estrogen receptor positive (HCC) Malignant neoplasm metastatic to lung, unspecified laterality (HCC) Bone metastases (HCC) Rip Rivers DO [address] [place] [address] [facility] [address] [place] [address] Reason Comments Refill Request Reason Comments Patient Update Reason Comments AVS Reason Comments Electronic Communication Reason Comments CVAD Access Reason Comments Results Low potassium Reason Comments handicapp placard request Reason Comments Patient Question Reason Comments Results CTs Specialty Diagnoses / Procedures Referred By [facility] Referred To Contact Diagnoses Malignant neoplasm of lower-inner quadrant of right breast of female, estrogen receptor positive (HCC) Malignant neoplasm metastatic to lung, unspecified laterality (HCC) Bone metastases Rip Rivers, DO [address] [place] [address] [facility] [address] [place] [address] Reason Onset Date Comments Refill Request 09/29/2022 Reason Comments echo results Reason Comments Follow Up Reason Comments Research Consent CAREVIVE Reason Comments Results Screening mammogram Reason Comments Research Reason Comments Consult Reason Onset Date Comments Simulation Request Form 02/08/2023 Reason Comments Patient Education Reason Comments symptoms Reason Comments Radiotherapy On-treatment Visit Specialty Diagnoses / Procedures Referred By Carmen t Referred To Contact Diagnoses Malignant neoplasm of lower-inner quadrant of right breast of female, estrogen receptor positive (HCC) Malignant neoplasm metastatic to lung, unspecified laterality (HCC) Bone metastases Rip Rivers, DO [address] [place] [address] [facility] [address] [place] [address] Reason Comments Results Reason Comments Future Appointment Reason Comments Recheck Specialty Diagnoses / Procedures Referred By Contac t Referred To Contact CT IMAGING Diagnoses Malignant neoplasm metastatic to bone (HCC) Procedures CT CHEST WO IVCON DIAGNOSTIC COMPUTED TOMOGRAPHY THORAX W/O CNTRST Rip Rivers, DO [address] [place] [address] Ct Imaging [facility] Referral ID Status Reason Start Date Expiration Date V isits Requested Visits Authorized [id number] Closed Auto-Generate d Referral 02/23/2023 03/24/2024 1 1 Specialty Diagnoses / Procedures Referred By Conttio t Referred To Contact CT IMAGING Diagnoses Malignant neoplasm of lower-inner quadrant of right breast of female, estrogen receptor positive (HCC) Bone metastases Malignant neoplasm metastatic to both lungs (HCC) Procedures CT CHEST W IVCON DIAGNOSTIC COMPUTED TOMOGRAPHY THORAX W/CONTRAST Rip Rivers, DO [address] [place] [address] [place] [address] Referral ID Status Reason Start Date Expiration Date V isits Requested Visits Authorized [id number] Closed Auto-Generate d Referral 07/30/2022 08/29/2023 1 1 Referral ID Status Reason Start Date Expiration Date V isits Requested Visits Authorized [id number] Closed Auto-Generate d Referral 07/06/2022 08/05/2023 1 1 Specialty Diagnoses / Procedures Referred By Contac t Referred To Contact CT IMAGING Diagnoses Malignant neoplasm of lower-inner quadrant of right breast of female, estrogen receptor positive (HCC) 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) Malignant neoplasm metastatic to both lungs (HCC) Procedures CT CHEST W IVCON DIAGNOSTIC COMPUTED TOMOGRAPHY THORAX W/CONTRAST Rip Rivers, DO [address] [facility] [place] [address] [place] [address] Referral ID Status Reason Start Date Expiration Date V isits Requested Visits Authorized [id number] Closed Auto-Generate d Referral 12/22/2022 01/21/2024 1 1 Specialty Diagnoses / Procedures Referred By Contac t Referred To Contact CT IMAGING Diagnoses Malignant neoplasm of lower-inner quadrant of right breast of female, estrogen receptor positive (HCC) Bone metastases Procedures CT CHEST W IVCON DIAGNOSTIC COMPUTED TOMOGRAPHY THORAX W/CONTRAST Caity Cote APRN.TERRITORY DEVELOPMENT MANAGER [address] [place] [address] [place] [address] Referral ID Status Reason Start Date Expiration Date V isits Requested Visits Authorized [id number] Closed Auto-Generate d Referral 04/14/2022 05/14/2023 1 1 Reason Onset Date Comments Refill Request 04/25/2023 Specialty Diagnoses / Procedures Referred By Contac t Referred To Contact Diagnoses Malignant neoplasm of lower-inner quadrant of right breast of female, estrogen receptor positive (HCC) (HCC) Malignant neoplasm metastatic to lung, unspecified laterality (HCC) Bone metastases Rip Rivers, DO [address] [place] [place] [address] [facility] [address] [place] [address] Specialty Diagnoses / Procedures Referred By Contac t Referred To Contact CT IMAGING Diagnoses Malignant neoplasm metastatic to left lung (HCC) Procedures CT CHEST WO IVCON DIAGNOSTIC COMPUTED TOMOGRAPHY THORAX W/O Meenu Kang MD [address] [facility] [place] [place] [address] [place] [address] Referral ID Status Reason Start Date Expiration Date V isits Requested Visits Authorized [id number] Closed Auto-Generate d Referral 08/03/2023 07/07/2024 1 1 Reason Comments Recheck Specialty Diagnoses / Procedures Referred By Contac t Referred To Contact Diagnoses Malignant neoplasm of lower-inner quadrant of right breast of female, estrogen receptor positive (HCC) Malignant neoplasm metastatic to lung, unspecified laterality (HCC) Bone metastases Rip Rivers, DO [address] [place] [address] [facility] [address] [place] [address] Reason Comments Radiology NM Reason Comments Appointment Reason Onset Date Comments SPP Oral Oncology/hematology - Treatment Referral 08/30/2023 Capecitabine 500mg / Tukysa 50mg / Tukysa 150mg Insurance Authorization 08/30/2023 No PA Re quired Reason Comments Care Coordination CYCLE 1/DAY 1 POST T REATMENT CALL Reason Comments AVS 08/29/23 Reason Comments Radiology US Specialty Diagnoses / Procedures Referred By Contac t Referred To Contact US IMAGING Diagnoses RUQ pain Procedures US ABD RIGHT UPPER QUADRANT US ABDOMINAL REAL TIME W/IMAGE LIMITED Rip Rivers, DO [address] [place] [address] [place] [address] Referral ID Status Reason Start Date Expiration Date V isits Requested Visits Authorized [id number] Closed Auto-Generate d Referral 08/30/2023 2024 1 1 Specialty Diagnoses / Procedures Referred By Contac t Referred To Contact Diagnoses Malignant neoplasm of lower-inner quadrant of right breast of female, estrogen receptor positive (HCC) Malignant neoplasm metastatic to lung, unspecified laterality (HCC) Malignant neoplasm metastatic to bone (HCC) HER2-positive carcinoma of breast (HCC) Rip Rivers, DO [address] [place] [address] [facility] [address] [place] [address] Referral ID Status Reason Start Date Expiration Date V isits Requested Visits Authorized [id number] Authorized 08/30/2023 11/28/2023 99 99 Reason Onset Date Comments Simulation Request Form 09/12/2023 Reason Comments Patient Education Discharge instructio ns-completed radiation Reason Comments Question Reason Comments Health Concierge - Other Oral Follow-up Reason Onset Date Comments SPP Oral Oncology/hematology - Medication Refill 11/01/2023 Capecitabine 500mg Reason Comments Health Concierge - Other Oral Anti-Cance r Agents Follow-up Reason Comments Medication Question Reason Comments Establish Care COMMUNICATIONS EDITOR/EST CARE Reason Onset Date Comments SPP Oral Oncology/hematology - Medication Refill 12/07/2023 Capecitabine 500mg Specialty Diagnoses / Procedures Referred By Contac t Referred To Contact CT IMAGING Diagnoses Malignant neoplasm of lower-inner quadrant of right breast of female, estrogen receptor positive (HCC) Malignant neoplasm metastatic to lung, unspecified laterality (HCC) Malignant neoplasm metastatic to bone (HCC) 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) Procedures CT CHEST W IVCON DIAGNOSTIC COMPUTED TOMOGRAPHY THORAX W/CONTRAST Caity Cote APRN.TERRITORY DEVELOPMENT MANAGER [address] [place] [address] Ct Imaging [place] [address] Referral ID Status Reason Start Date Expiration Date V isits Requested Visits Authorized [id number] Closed Auto-Generate d Referral 12/14/2023 01/12/2025 1 1 Reason Onset Date Comments SPP Oral Oncology/hematology - Medication Refill 12/30/2023 Capecitabine 500mg Specialty Diagnoses / Procedures Referred By Contac t Referred To Contact CT IMAGING Diagnoses Malignant neoplasm of lower-inner quadrant of right breast of female, estrogen receptor positive (HCC) Orthopnea Interstitial pulmonary disease (HCC) Procedures CT CHEST WO IVCON DIAGNOSTIC COMPUTED TOMOGRAPHY THORAX W/O CNTRST Rip Rivers, DO [address] [place] [address] [place] [address] Referral ID Status Reason Start Date Expiration Date V isits Requested Visits Authorized [id number] Closed Auto-Generate d Referral 01/04/2024 02/02/2025 1 1 Reason Comments Results Reason Comments Health Concierge - Other Follow-up Reason Comments Question Reason Comments Appointment Herceptin Reason Onset Date Comments SPP Oral Oncology/hematology - Medication Refill 01/26/2024 Capecitabine Reason Onset Date Comments Refill Request 01/31/2024 Reason Onset Date Comments SPP Oral Oncology/hematology - Medication Refill 01/31/2024 Capecitabine Reason Onset Date Comments SPP Oral Oncology/hematology - Medication Refill 03/09/2024 capecitabine Reason Onset Date Comments SPP Oral Oncology/hematology - Medication Refill 03/30/2024 Xeloda Reason Onset Date Comments SPP Oral Oncology/hematology - Medication Refill 04/20/2024 Capecitabine Specialty Diagnoses / Procedures Referred By [facility] Referred To Contact CT IMAGING Diagnoses Malignant neoplasm of lower-inner quadrant of right breast of female, estrogen receptor positive (HCC) Malignant neoplasm metastatic to bone (HCC) Malignant neoplasm metastatic to both lungs (HCC) Procedures CT ABD/PEL W IVCON CT ABD & PELVIS W/CONTRAST Rip Rivers, DO [address] [place] [address] [place] [address] Referral ID Status Reason Start Date Expiration Date V isits Requested Visits Authorized [id number] Closed Auto-Generate d Referral 03/21/2024 04/20/2025 1 1 Specialty Diagnoses / Procedures Referred By [facility] Referred To Contact CT IMAGING Diagnoses Malignant neoplasm of lower-inner quadrant of right breast of female, estrogen receptor positive (HCC) Malignant neoplasm metastatic to bone (HCC) Malignant neoplasm metastatic to both lungs (HCC) Procedures CT ABD/PEL W IVCON CT ABD & PELVIS W/CONTRAST Rip Rivers, DO [address] [facility] [place] [place] [address] [place] [address] Reason Onset Date Comments SPP Oral Oncology/hematology - Medication Refill 05/14/2024 Capecitabine Reason Onset Date Comments SPP Oral Oncology/hematology - Medication Refill 06/04/2024 Capecitabine Reason Onset Date Comments SPP Oral Oncology/hematology - Medication Refill 06/29/2024 Capecitabine 500mg Reason Comments Medication Request Reason Comments 2024 Tukysa Patient Assistance Reason Onset Date Comments SPP Oral Oncology/hematology - Medication Refill 07/16/2024 Capecitabine 500mg Specialty Diagnoses / Procedures Referred By Contac t Referred To Contact Diagnoses Malignant neoplasm of lower-inner quadrant of right breast of female, estrogen receptor positive (HCC) Malignant neoplasm metastatic to lung, unspecified laterality (HCC) Malignant neoplasm metastatic to bone (HCC) HER2-positive carcinoma of breast (HCC) Rip Rivers, DO [address] [place] [address] Phone: tel: fax: Hematology/Oncology [address] [phone] Phone: tel: fax: Reason Comments Tukysa Assistance Reason Comments Established Patient Reason Onset Date Comments SPP Oral Oncology/hematology - Medication Refill 08/27/2024 Capecitabine 500mg Specialty Diagnoses / Procedures Referred By Contac t Referred To Contact US IMAGING Diagnoses History of thyroid nodule Procedures US THYROID/PARATHYROID US SOFT TISSUE HEAD & NECK REAL TIME IMGE DOC Rip Rivers, DO [address] [place] [address] Phone: tel: fax: [place] [address] Referral ID Status Reason Start Date Expiration Date V isits Requested Visits Authorized [id number] Closed Auto-Generate d Referral 08/15/2024 09/14/2025 1 1 Specialty Diagnoses / Procedures Referred By Contac t Referred To Contact CT IMAGING Diagnoses Malignant neoplasm of lower-inner quadrant of right breast of female, estrogen receptor positive (HCC) Malignant neoplasm metastatic to bone (HCC) Malignant neoplasm metastatic to both lungs (HCC) Procedures CT ABD/PEL W IVCON CT ABD & PELVIS W/CONTRAST Rip Rivers, DO [address] [facility] [place] [address] Phone: tel: fax: [place] [address] Referral ID Status Reason Start Date Expiration Date V isits Requested Visits Authorized [id number] Closed Auto-Generate d Referral 08/15/2024 09/14/2025 1 1 Reason Onset Date Comments SPP Oral Oncology/hematology - Medication Refill 09/17/2024 Capecitabine 500mg Reason Comments Fever Reason Comments Results Xrays done on 5; URI pneumonia of right lung Medicare Annual Wellness Visit Subsequen t Reason Onset Date Comments SPP Oral Oncology/hematology - Medication Refill 11/15/2024 Capecitabine 500mg Reason Onset Date Comments SPP Oral Oncology/hematology - Medication Refill 12/05/2024 Capecitabine 500 mg Goals (unrecognized section and content) Goals may be documented in a n alternate sectionGoals may be documented in an alternate sectionGoals may be documented in an alternate sectionGoals may be documented in an alternate sectionGoals may be documented in an alternate sectionGoals may be documented in an alternate sectionGoals may be documented in an alternate sectionGoals may be documented in an alternate sectionGoals may be documented in an alternate sectionGoals may be documented in an alternate section Inactive Administered Medications - up to 3 most recent administrations Administered Medications (un recognized section and content) Medication Order MAR Action Action Date Dose Rate Site dexAMETHasone 10 mg in NaCl 0.9% 50 mL (DECADRON) 10 mg, INTRAVENOUS, Administer over 15 Minutes, ONCE, 1 dose, On Tue07/21/23 at 1400, Refrigerate. New Bag/Syringe/Bottle 07/21/2023 2:03 PM EST 10 mg fam-trastuzumab deruxtecan-nxki 465.48 mg in D5W 133.274 mL (ENHERTU) 465.48 mg (5.4 mg/kg/dose 86.2 kg Order-specific weight), INTRAVENOUS, Administer over 30 Minutes, ONCE, 1 dose, On Amarilys 07/21/23 at 1400, Approx Total Volume - Expires: 07/21/23 @ 1810 Hazardous Chemotherapy Drug: Use appropriate PPE. Administer with 0.2 micron filter. Flush line with D5W before and after administration. Refrigerate - Protect from Light New Bag/Syringe/Bottle 07/21/2023 2:40 PM EST 465.48 mg palonosetron 0.25 mg injection (ALOXI) 0.25 mg, INTRAVENOUS, ONCE, 1 dose, On Amarilys 07/21/23 at 1400, Flush IV line with NS prior to and following administration. Given 07/21/2023 2:00 PM EST 0.25 mg Inactive Administered Medications - up to 3 most recent administrations Medication Order MAR Action Action Date Dose Rate Site dexAMETHasone 10 mg in NaCl 0.9% 50 mL (DECADRON) 10 mg, INTRAVENOUS, Administer over 15 Minutes, ONCE, 1 dose, On Amarilys 08/11/23 at 1330, Refrigerate. New Bag/Syringe/Bottle 08/11/2023 1:15 PM EST 10 mg fam-trastuzumab deruxtecan-nxki 465.48 mg in D5W 133.274 mL (ENHERTU) 465.48 mg (5.4 mg/kg/dose 86.2 kg Order-specific weight), INTRAVENOUS, Administer over 30 Minutes, ONCE, 1 dose, On Amarilys 08/11/23 at 1330, Approx Total Volume -exp immediate use (room temp) Hazardous Chemotherapy Drug: Use appropriate PPE. Administer with 0.2 micron filter. Flush line with D5W before and after administration. Refrigerate - Protect from Light New Bag/Syringe/Bottle 08/11/2023 1:54 PM EST 465.48 mg palonosetron 0.25 mg injection (ALOXI) 0.25 mg, INTRAVENOUS, ONCE, 1 dose, On Amarilys 08/11/23 at 1330, Flush IV line with NS prior to and following administration. Given 08/11/2023 1:15 PM EST 0.25 mg Inactive Administered Medications - up to 3 most recent administrations Medication Order MAR Action Action Date Dose Rate Site trastuzumab-dttb 506.4 mg in NaCl 0.9% 299.1046 mL (ONTRUZANT) 506.4 mg (6 mg/kg/dose 84.4 kg Treatment plan Recorded weight), INTRAVENOUS, Administer over 30 Minutes, ONCE, 1 dose, On Amairlys 09/22/23 at 1230, Approx Total Volume:exp 1100 09/27/23 (refrigerated) DO NOT SHAKE Refrigerate New Bag/Syringe/Bottle 09/22/2023 1:22 PM EDT 506.4 mg zoledronic de-[id number]-[id number] 4 mg iv piggyback 100 mL (ZOMETA) 4 mg, INTRAVENOUS, Administer over 15 Minutes, ONCE, 1 dose, On Amarilys 09/22/23 at 1300, Hazardous Potential Reproductive Risk Drug: Use appropriate PPE. New Bag/Syringe/Bottle 09/22/2023 1:00 PM EDT 4 mg INFORMATION SOURCE (unrecogn ized section and content) DATE CREATED AUTHOR 08/24/2023 [facility] DATE CREATED AUTHOR AUTHOR'S ORGANIZ ATION 09/29/2024 [facility] DATE CREATED AUTHOR AUTHOR'S ORGANIZ ATION 12/14/2024 [facility] DATE CREATED AUTHOR AUTHOR'S ORGANIZ ATION 12/17/2024 [facility] FOR RECORDS PERTAINING TO PATIENTS WHO ARE OR HAVE BEEN ENROLLED IN A CHEMICAL DEPENDENCY/SUBSTANCEABUSE PROGRAM, SOME INFORMATION MAY BE OMITTED. This clinical summary was aggregated from multiple sources. Caution should be exercised in using it in the provision of clinical care. This summary normalizes information from multiple sources, and as a consequence, information in this document may materially change the coding, format and clinical context of patient data. In addition, data may be omitted in some cases. CLINICAL DECISIONS SHOULD BE BASED ON THE PRIMARY CLINICAL RECORDS. [employer] provides no warranty or guarantee of the accuracy or completeness of information in this document.
--- OUTSIDE RECORDS SUMMARY | 2024-12-19 06:48 | XMS RPT_ITS | CCD ---
Author Organization [facility] Care Team Providers Care [facility] Cashier Name Role Phone Beth Fernandez Y Unavailable Beth Fernandez Y Unavailable MD Waleska, Mayco Gallardo Unavailable JimBeth Y Unavailable Leesa Washburn RN Unavailable Unavailable Alexander Crocker Unavailable Unavailable Beth Fernandez Y Unavailable Mitch Mejia Primary Care Provider Jarrod RG MD, Dajorgeung Unavailable Gage MORRISON, Carla Unavailable Unavailable Jarrod RG MD, Daesung Unavailable Chanelle Westfall RN Unavailable Dr. Mitch Mejia Primary Care Provider [phone] Dr. Mayco Galeano Attending Provider Dr. Mitch [...] Unavailable Khoi MORRISON, Chanelle Unavailable Dr. Mitch Mejai Primary Care Provider Dr. Mayco Galeano Attending Provider Dr. Mitch Mejia Referring Provider Dr. Mitch Mejia Primary Care Provider [phone] Mayco Galeano Attending Provider Waleska, Mayco S Unavailable Khoi MORRISON, Chanelle Unavailable Waleska, [place] S Unavailable Gage MORRISON, Carla Unavailable Unavailable Dr. Mitch Mejia Primary Care Provider Dr. Mayco Galeano Attending Provider Dr. Mitch Mejia Referring Provider Trey FRAZIER, JOANNE Jackson Attending Provider Dr. Gurvinder Dill Emergency Provider Dr. Luis Stratton Admit Provider Dr. Luis Stratton Other Provider Dr. Malika Garay Attending Provider Dr. Malika Garay Other Provider Waleska RG, [place] S Unavailable Mitch Mejia MD Primary Care [...] Attending Provider Dr. Mitch Mejia Referring Provider [phone] Trey DEVELOPER EVANGELIST, DEVELOPER EVANGELIST-C Renetta Attending Provider Jarrod RG, Coltonesung Unavailable Jarrod RG, Coltonesung Unavailable Dr. Williams Farrell Primary Care Provider Dr. Mayco Galeano Attending Provider Dr. Mitch Mejia Referring Provider Trey DEVELOPER EVANGELIST, DEVELOPER EVANGELIST-C Renetta Attending Provider RIP RIVERS Referring Unavailable [...] Unavailable MASCI, RIP Borja Referring Unavailable OBERHAUSER, WILLIASM L Primary Care Unavailable MASCI, RIP Borja [...] CRUZ, ISAC L Primary Care Unavailable MASCI, IRP Borja Referring Unavailable JOSE CRUZ, ISAC L [...] Unavailable POORNIMA GARCIA Attending Unavailable JOSE CRUZ, ISCA L Primary Care Unavailable POORNIMA GARCIA Referring [...] Jose Cruz, Isac Primary Care Unavailable Cote DEVELOPER EVANGELIST, Caity Attending Unavailable Cote DEVELOPER EVANGELIST, Caity Referring Unavailable Jose Cruz, Isac Primary Care Unavailable Masci, Rip Attending Unavailable Oberhauser, Williams Primary Care Unavailable Masci, Rip Referring Unavailable Waleska, [place] Attending Unavailable Jose Cruz, Isac Primary Care Unavailable Waleska, Mayco Attending Unavailable Oberhauser, Williams Primary Care Unavailable Waleska, [place] Attending Unavailable Oberhauser, Williams Primary Care Unavailable Roof DEVELOPER EVANGELISTTanvi Attending Unavailable Oberhauser, Williams Referring Unavailable Oberhauser, Williams Primary Care Unavailable Allergies Allergy Classification Reported Allergen(s) Allergy Type Date of Onset Reaction(s) Facility Acetaminophen / HYDROcodone (3 sources) Acetaminophen / HYDROcodone Drug Allergy 03-04-20 16 Hives [facility] Acetaminophen / oxyCODONE (3 sources) Acetaminophen / oxyCODONE Drug Allergy 03-29-20 16 Rash, Itching [facility] Aspirin (3 sources) Aspirin Drug Allergy 02-20-20 16 Other: See Comments [facility] Cephalosporins (antibiotic) (3 sources) Cephalosporins (Antibiotic) Drug Allergy 02-20-20 16 Unknown [facility] Corticosteroids (3 sources) predniSONE Drug Allergy 02-20-20 16 Unknown [facility] Latex (3 sources) Latex Substance Allergy 03-18-20 16 Rash [facility] Macrolides (antibiotic) (3 sources) Erythromycin Drug Allergy 02-20-20 16 Unknown [facility] Nalbuphine (3 sources) Nalbuphine Drug Allergy 02-20-20 16 Unknown [facility] neratinib (3 sources) neratinib Drug Allergy 07-27-19 18 Hives [facility] Opioid Agonists (6 sources) Codeine Drug Allergy 02-20-20 16 Unknown [facility] Penicillins (antibiotic) (3 sources) Amoxicillin Drug Allergy 02-20-20 16 Rash [facility] rye allergenic extract (3 sources) rye allergenic extract Drug Allergy 02-20-20 16 Other: See Comments [facility] Sulfonamides (antibiotic) (3 sources) Sulfonamides (Antibiotic) Drug Allergy 02-20-20 16 Other: See Comments [facility] (4 sources) acetaminophen / HYDROcodone drug allergy 12-02-19 17 Hives and nausea [facility] Work Phone: (4 sources) acetaminophen / oxyCODONE drug allergy 12-02-19 17 Hives and nausea [facility] Work Phone: (20 sources) amoxicillin; Translations: [AMOXICILLIN] drug allergy 02-20-20 16 Rash, Fever, Nausea/vomitin g [facility] Work Phone: (20 sources) aspirin; Translations: [ASPIRIN] drug allergy 02-20-20 16 Other: See Comments, Other, GI bleeding [facility] Work Phone: (4 sources) ciprofloxacin drug allergy 12-02-19 17 Hives and nausea [facility] Work Phone: (20 sources) codeine; Translations: [CODEINE] drug allergy 02-20-20 16 Unknown, Fever, Hives [facility] Work Phone: (4 sources) meperidine drug allergy 12-02-19 17 Hives, nausea [facility] Work Phone: [phone] (4 sources) nalbuphine drug allergy 12-02-19 17 Hives and nausea [facility] Work Phone: (7 sources) natural latex rubber; Translations: [LATEX] allergy to substance 03-18-20 16 Hives [facility] Work Phone: [phone] (20 sources) predniSONE; Translations: [PREDNISONE] drug allergy 02-20-20 16 Unknown [facility] Work Phone: (20 sources) rye allergenic extract; Translations: [RYE] drug allergy 02-20-20 16 Other: See Comments [facility] Work Phone: (4 sources) Sulfonamides (Antibiotic) drug allergy 12-02-19 17 Hives and nausea [facility] Work Phone: (20 sources) Acetaminophen / HYDROcodone; Translations: [HYDROCODONE-ACETA MINOPHEN] Drug Allergy 03-04-20 16 Hives, Nausea/vomitin g [facility] (20 sources) Acetaminophen / oxyCODONE; Translations: [OXYCODONE-ACETAMI NOPHEN] Drug Allergy 03-29-20 16 Rash, Itching, Nausea/vomitin g [facility] (20 sources) Cephalosporins (Antibiotic); Translations: [CEPHALOSPORINS] Drug Allergy 02-20-20 16 Unknown, Rash, Fever [facility] (20 sources) Erythromycin; Translations: [ERYTHROMYCIN] Drug Allergy 02-20-20 16 [facility] (20 sources) Latex Drug Allergy 03-18-20 16 Rash, [facility] (20 sources) Meperidine; Translations: [MEPERIDINE (PF)] Drug Allergy 02-20-20 16 [facility] (20 sources) Nalbuphine; Translations: [NALBUPHINE HCL] Drug Allergy 02-20-20 16 [facility] (20 sources) neratinib; Translations: [NERATINIB] Drug Allergy 07-27-19 18 [facility] (20 sources) Sulfonamides (Antibiotic); Translations: [SULFA (SULFONAMIDE ANTIBIOTICS)] Drug Allergy 02-20-20 16 Other: See Comments, Unknown, Hives, Rash [facility] (20 sources) Ciprocinonide; Translations: [CIPROCINONIDE] Drug Allergy 02-20-20 16 [facility] (12 sources) Acetaminophen; Translations: [ACETAMINOPHEN] Drug Allergy 03-29-20 19 [facility] (12 sources) Ciprofloxacin; Translations: [CIPROFLOXACIN] Drug Allergy 12-02-19 17 Fever, Rash [facility] (12 sources) HYDROcodone; Translations: [HYDROCODONE] Drug Allergy 03-29-20 19 Hives, Nausea/vomitin g [facility] (12 sources) Meperidine; Translations: [MEPERIDINE] Drug Allergy 12-02-19 17 Hives, GI Upset [facility] (12 sources) Nalbuphine; Translations: [NALBUPHINE] Drug Allergy 12-02-19 17 Fever, Nausea/vomitin g [facility] (12 sources) oxyCODONE; Translations: [OXYCODONE] Drug Allergy 03-29-20 19 Hives, Nausea/vomitin g [facility] (20 sources) Cephalosporins (Antibiotic) Drug Allergy 02-20-20 16 Unknown [facility] (8 sources) Cephalosporins (Antibiotic) Allergy to substance 04-06-20 22 Fever and skin rash [facility] (8 sources) Sulfonamides (Antibiotic) Allergy to substance 04-06-20 22 Fever and skin rash [facility] (7 sources) Food Allergies: Uncoded; Translations: [Food Allergies: Uncoded] Propensity to adverse reactions 12-01-19 23 migraine [facility] Comment on above: [facility] (20 sources) Nirmatrelvir-Riton avir; Translations: [NIRMATRELVIR-FROY NAVIR] Drug Allergy 07-20-19 24 Intolerance, Other [facility] (4 sources) Ritonavir; Translations: [RITONAVIR] Drug Allergy 08-16-19 Other [facility] (5 sources) nirmatrelvir; Translations: [NIRMATRELVIR] Allergy to substance 08-16-19 Other [facility] (1 source) Acetaminophen Drug Allergy 05-21-20 [facility] (1 source) Cephalosporins (Antibiotic) Drug allergy (disorder) 05-21-20 [facility] (1 source) Ciprofloxacin Drug Allergy 05-21-20 [facility] (1 source) Erythromycin Drug Allergy 05-21-20 [facility] (1 source) HYDROcodone Drug Allergy 05-21-20 [facility] (1 source) Latex Drug allergy (disorder) 05-21-20 [facility] (1 source) Meperidine Drug Allergy 05-21-20 [facility] (1 source) Nalbuphine Drug Allergy 05-21-20 [facility] (1 source) oxyCODONE Drug Allergy 05-21-20 [facility] (1 source) Ritonavir Drug Allergy 05-21-20 [facility] (1 source) Sulfonamides (Antibiotic) Drug allergy (disorder) 05-21-20 [facility] Medications Current Medications Medication Drug [...] TYLENOL 325 MG TABS as needed ACETAMINOPHEN [id number] Mayco Galeano MD End: 04-06-2023 take 2 [...] Start: 02-26-2020 take 2 tablets by [facility] once daily losartan (COZAAR) 50 mg tablet [...] One tablet by mouth daily LOSARTAN POTASSIUM [id number] Mayco Galeano MD Comment on above: Take 2 tablets by mo [facility] once daily. metoprolol tartrate 25 mg [...] Comment on above: Take 1 tablet by [facility] once daily. Take 20 mEq by mouth [...] on above: Take 1 capsule by [facility] twice daily for 90 days. TAKE 1 CAPSULE BY [facility] TWICE DAILY. promethazine hydrochloride 25 mg oral tablet (20 sources) Phenothiazine Start: 03-03-20 End: 04-26-20 23 take 1 tablet by mouth every six hours as needed promethazine (PHENERGAN) 25 mg tablet Take 1 tablet by mouth every 6 hours as needed. FOR NAUSEA 30 tablet 2 04/26/2023 Active Comment on above: Take 1 tablet by [facility] every 6 hours as needed. FOR NAUSEA [...] TABS One tablet by mouth daily ANASTROZOLE [id number] Mayco Galeano MD docusate (3 sources) Start: 12-01-2016 take 1 tablet by mouth once daily EQL HEARTBURN PREVENTION 10 MG TABS One tablet by mouth daily FAMOTIDINE [id number] Mayco Galeano MD doxycycline monohydrate 100 mg [...] TABS One tablet by mouth daily FAMOTIDINE [id number] Mayco Galeano MD gabapentin 100 mg oral [...] CAPS One tablet by mouth daily GABAPENTIN [id number] Mayco Galeano MD homatropine methylbromide 0.3 mg/ml [...] HER2/krista Receptor Antagonist Start: 06-19-2019 End: 01-22-2020 Tnorcndcrvm-Cadiobjmcovlt-Ku sk (Herceptin Hylecta) 600 mg-10,000 unit/5 mL [...] 19, 2016 1:00am November 29, 2017 2:36pm Omjoxfjxtvvq-Cj-Qwaz-Min erals (9 sources) Start: 06-02-2017 End: 05-09-2018 Vgwljfrndjne-Ba-Loiy-Mi nerals Discontinued TABLET PO June 02, 2017 3:01pm May 09, 2018 4:32pm Start: 06-02-2017 End: 05-09-2018 Wavbhnuigicw-Pw-Lxrz-Mineral s Discontinued TABLET PO June 02, 2017 12:00am May 09, 2018 3:32pm Start: 06-02-2017 End: 05-09-2018 Uvmjsxzmccyx-Yx-Qped-Mineral s Discontinued TABLET PO June 02, 2017 1:00am May 09, 2018 4:32pm Zyoqverujoou-Tc-Fjwf-Mineral s tablet (1 source) Start: 06-02-2017 End: 05-09-2018 Ubfunvrlxqsb-Ao-Jvtf-Mineral s tablet Discontinued {tbl} PO June 02, [...] Approx Total Volume - IMMEDIATE USE at [facility] - DO NOT SHAKE Refrigerate Start: 11-22-2024 End: 11-22-2024 468 mg (6 mg/kg/dose 78 kg T reatment plan Recorded weight), INTRAVENOUS, Administer over 30 Minutes, ONCE, 1 dose, On Amarilys 11/22/24 at 0930, Approx Total Volume - IMMEDIATE USE at [facility] - DO NOT SHAKE Refrigerate Start: 11-01-2024 End: 11-01-2024 468 mg (6 mg/kg/dose 78 kg T reatment plan Recorded weight), INTRAVENOUS, Administer over 30 Minutes, ONCE, 1 dose, On Amarilys 11/01/24 at 0800, Approx Total Volume - IMMEDIATE USE at [facility] - DO NOT SHAKE Refrigerate Start: 10-11-2024 End: 10-11-2024 468 mg (6 mg/kg/dose 78 kg T reatment plan Recorded weight), INTRAVENOUS, Administer over 30 Minutes, ONCE, 1 dose, On Amarilys 10/11/24 at 0800, Approx Total Volume - IMMEDIATE USE at [facility] - DO NOT SHAKE Refrigerate Start: 09-06-2024 End: 09-06-2024 468 mg (6 mg/kg/dose 78 kg T reatment plan Recorded weight), INTRAVENOUS, Administer over 30 Minutes, ONCE, 1 dose, On Amarilys 09/06/24 at 1430, Approx Total Volume - IMMEDIATE USE at [facility] - DO NOT SHAKE Refrigerate Start: 08-16-2024 [...] source) Bisphosphonate Start: 01-16-2024 End: 01-16-2024 zoledronic jx-wsroqntu-9.9NaCl 4 mg iv piggyback 100 mL (ZOMETA) [...] pane l (Bld)on 12-12-2024 Basophils (Bld) [#/Vol] [facility] Basophils/100 WBC (Bld) 0.4 % [facility] Differential cell count method Nom (Bld) Auto [facility] Eosinophils (Bld) [#/Vol] 0.23 10*3/uL [facility] Eosinophils/100 WBC (Bld) 4.6 % [facility] Erythrocyte distribution width (RBC) [Ratio] 17.7 % High 11.5 - 15.0 % [facility] Hematocrit (Bld) [Volume fraction] 33.4 % Low 36.0 - 46.0 % [facility] Hemoglobin (Bld) [Mass/Vol] 11.6 g/dL 11.5 - 15.5 g/dL [facility] Immature granulocytes (Bld) [#/Vol] [facility] Immature granulocytes/100 WBC (Bld) 0 % [facility] Interpretation and review of laboratory results Abnormal [facility] Lymphocytes (Bld) [#/Vol] 1.03 10*3/uL [facility] Lymphocytes/100 WBC (Bld) 20.6 % [facility] MCH (RBC) [Entitic mass] 37.9 pg High 26.0 - 34.0 pg [facility] MCHC (RBC) [Mass/Vol] 34.7 g/dL 30.5 - 36.0 g/dL [facility] MCV (RBC) [Entitic vol] 109.2 fL High 80.0 - 100.0 fL [facility] Monocytes (Bld) [#/Vol] 0.62 10*3/uL NINF [facility] Monocytes/100 WBC (Bld) 12.4 % [facility] Neutrophils (Bld) [#/Vol] 3.11 10*3/uL [facility] Neutrophils/100 WBC (Bld) 62 % [facility] Nucleated RBC (Bld) [#/Vol] NINF [facility] Nucleated RBC/100 WBC (Bld) [Ratio] 0 % /100 WBC [facility] Platelet mean volume (Bld) [Entitic vol] 9.5 fL 9.0 - 12.7 fL [facility] Platelets (Bld) [#/Vol] 146 10*3/uL Low [facility] RBC (Bld) [#/Vol] 3.06 10*6/uL Low 3.90 - 5.2 0 m/uL [facility] WBC (Bld) [#/Vol] 5.01 10*3/uL [facility] Comprehensive metabolic 2000 panelOrdered By: Sasha Velasco on 12-12-2024 Albumin [Mass/Vol] 3.9 g/dL 3.9 - 4.9 g/dL [facility] ALP [Catalytic activity/Vol] 111 U/L 34 - 123 U/L [facility] ALT [Catalytic activity/Vol] 13 U/L 7 - 38 U/L [facility] Anion gap [Moles/Vol] 10 mmol/L 8 - 15 mmol/L [facility] AST [Catalytic activity/Vol] 26 U/L 13 - 35 U/L [facility] Bilirubin [Mass/Vol] 0.4 mg/dL 0.2 - 1 .3 mg/dL [facility] Calcium [Mass/Vol] 9.2 mg/dL 8.5 - 10. 2 mg/dL [facility] Chloride [Moles/Vol] 106 mmol/L 98 - 10 7 mmol/L [facility] CO2 [Moles/Vol] 25 mmol/L 22 - 30 mmol/L [facility] Creatinine [Mass/Vol] 1.4 mg/dL High 0.58 - 0.96 mg/dL [facility] GFR/1.73 sq M.predicted among non-blacks MDRD (S/P/Bld) [Vol rate/Area] 40 mL/min/{1.73_m2} Low - PINF [facility] Comment on above: Estimated Glomerular Filtration Rate [...] 138 mg/dL High 74 - 99 mg/dL [facility] Comment on above: The [place] [employer] (ADA) provides guidance for [...] Standards of Medical Care in Diabetes 2016, [place] [employer]. Diabetes Care. 2016.39(Suppl 1). Interpretation and review of laboratory results Abnormal [facility] Potassium [Moles/Vol] 3.5 mmol/L Low 3.7 - 5.1 mmol/L [facility] Protein [Mass/Vol] 5.9 g/dL Low 6.3 - 8.0 g/dL [facility] Sodium [Moles/Vol] 141 mmol/L 136 - 144 mmol/L [facility] Urea nitrogen [Mass/Vol] 14 mg/dL 7 - 21 mg/dL [facility] CBC W Auto Differential pane l (Bld)on 11-21-2024 Basophils (Bld) [#/Vol] NINF [facility] Basophils/100 WBC (Bld) 0.4 % [facility] Differential cell count method Nom (Bld) Auto [facility] Eosinophils (Bld) [#/Vol] 0.25 10*3/uL [facility] Eosinophils/100 WBC (Bld) 5.4 % [facility] Erythrocyte distribution width (RBC) [Ratio] 18.4 % High 11.5 - 15.0 % [facility] Hematocrit (Bld) [Volume fraction] 35.4 % Low 36.0 - 46.0 % [facility] Hemoglobin (Bld) [Mass/Vol] 11.9 g/dL 11.5 - 15.5 g/dL [facility] Immature granulocytes (Bld) [#/Vol] NINF [facility] Immature granulocytes/100 WBC (Bld) 0.4 % [facility] Interpretation and review of laboratory results Abnormal [facility] Lymphocytes (Bld) [#/Vol] 1.08 10*3/uL [facility] Lymphocytes/100 WBC (Bld) 23.2 % [facility] MCH (RBC) [Entitic mass] 37.1 pg High 26.0 - 34.0 pg [facility] MCHC (RBC) [Mass/Vol] 33.6 g/dL 30.5 - 36.0 g/dL [facility] MCV (RBC) [Entitic vol] 110.3 fL High 80.0 - 100.0 fL [facility] Monocytes (Bld) [#/Vol] 0.55 10*3/uL [facility] Monocytes/100 WBC (Bld) 11.8 % [facility] Neutrophils (Bld) [#/Vol] 2.73 10*3/uL [facility] Neutrophils/100 WBC (Bld) 58.8 % [facility] Nucleated RBC (Bld) [#/Vol] NINF [facility] Nucleated RBC/100 WBC (Bld) [Ratio] 0 % /100 WBC [facility] Platelet mean volume (Bld) [Entitic vol] 9.6 fL 9.0 - 12.7 fL [facility] Platelets (Bld) [#/Vol] 174 10*3/uL [facility] RBC (Bld) [#/Vol] 3.21 10*6/uL Low 3.90 - 5.2 0 m/uL [facility] WBC (Bld) [#/Vol] 4.65 10*3/uL [facility] Comprehensive metabolic 2000 panelOrdered By: Sasha Velasco on 11-21-2024 Albumin [Mass/Vol] 4 g/dL 3.9 - 4.9 g/dL [facility] ALP [Catalytic activity/Vol] 105 U/L 34 - 123 U/L [facility] ALT [Catalytic activity/Vol] 14 U/L 7 - 38 U/L [facility] Anion gap [Moles/Vol] 11 mmol/L 8 - 15 mmol/L [facility] AST [Catalytic activity/Vol] 26 U/L 13 - 35 U/L [facility] Bilirubin [Mass/Vol] 0.4 mg/dL 0.2 - 1 .3 mg/dL [facility] Calcium [Mass/Vol] 9.8 mg/dL 8.5 - 10. 2 mg/dL [facility] Chloride [Moles/Vol] 103 mmol/L 98 - 10 7 mmol/L [facility] CO2 [Moles/Vol] 26 mmol/L 22 - 30 mmol/L [facility] Creatinine [Mass/Vol] 1.11 mg/dL High 0.58 - 0.96 mg/dL [facility] GFR/1.73 sq M.predicted among non-blacks MDRD (S/P/Bld) [Vol rate/Area] 53 mL/min/{1.73_m2} Low - PINF [facility] Comment on above: Estimated Glomerular Filtration Rate [...] 118 mg/dL High 74 - 99 mg/dL [facility] Comment on above: The [place] Di[employer] Association (ADA) provides guidance for [...] Standards of Medical Care in Diabetes 2016, [place] [employer]. Diabetes Care. 2016.39(Suppl 1). Interpretation and review of laboratory results Abnormal [facility] Potassium [Moles/Vol] 4 mmol/L 3.7 - 5.1 mmol/L [facility] Protein [Mass/Vol] 5.9 g/dL Low 6.3 - 8.0 g/dL [facility] Sodium [Moles/Vol] 140 mmol/L 136 - 144 mmol/L [facility] Urea nitrogen [Mass/Vol] 13 mg/dL 7 - 21 mg/dL [facility] CBC W Auto Differential pane l (Bld)on 10-31-2024 Basophils (Bld) [#/Vol] [facility] Basophils/100 WBC (Bld) 0.3 % [facility] Differential cell count method Nom (Bld) Auto [facility] Eosinophils (Bld) [#/Vol] 0.18 10*3/uL [facility] Eosinophils/100 WBC (Bld) 4.8 % [facility] Erythrocyte distribution width (RBC) [Ratio] 17.8 % High 11.5 - 15.0 % [facility] Hematocrit (Bld) [Volume fraction] 35.3 % Low 36.0 - 46.0 % [facility] Hemoglobin (Bld) [Mass/Vol] 12.1 g/dL 11.5 - 15.5 g/dL [facility] Immature granulocytes (Bld) [#/Vol] [facility] Immature granulocytes/100 WBC (Bld) 0.3 % [facility] Interpretation and review of laboratory results Abnormal [facility] Lymphocytes (Bld) [#/Vol] 0.86 10*3/uL Low [facility] Lymphocytes/100 WBC (Bld) 23 % [facility] MCH (RBC) [Entitic mass] 37 pg High 26.0 - 34.0 pg [facility] MCHC (RBC) [Mass/Vol] 34.3 g/dL 30.5 - 36.0 g/dL [facility] MCV (RBC) [Entitic vol] 108 fL High 80.0 - 100.0 fL [facility] Monocytes (Bld) [#/Vol] 0.4 10*3/uL [facility] Monocytes/100 WBC (Bld) 10.7 % [facility] Neutrophils (Bld) [#/Vol] 2.28 10*3/uL [facility] Neutrophils/100 WBC (Bld) 60.9 % [facility] Nucleated RBC (Bld) [#/Vol] [facility] Nucleated RBC/100 WBC (Bld) [Ratio] 0 % /100 WBC [facility] Platelet mean volume (Bld) [Entitic vol] 9.7 fL 9.0 - 12.7 fL [facility] Platelets (Bld) [#/Vol] 139 10*3/uL Low [facility] RBC (Bld) [#/Vol] 3.27 10*6/uL Low 3.90 - 5.2 0 m/uL [facility] WBC (Bld) [#/Vol] 3.74 10*3/uL [facility] Comprehensive metabolic 2000 panelOrdered By: Sasha Velasco on 10-31-2024 Albumin [Mass/Vol] 3.8 g/dL Low 3.9 - 4.9 g/dL [facility] ALP [Catalytic activity/Vol] 99 U/L 34 - 123 U/L [facility] ALT [Catalytic activity/Vol] 13 U/L 7 - 38 U/L [facility] Anion gap [Moles/Vol] 11 mmol/L 8 - 15 mmol/L [facility] AST [Catalytic activity/Vol] 27 U/L 13 - 35 U/L [facility] Bilirubin [Mass/Vol] 0.5 mg/dL 0.2 - 1 .3 mg/dL [facility] Calcium [Mass/Vol] 9.2 mg/dL 8.5 - 10. 2 mg/dL [facility] Chloride [Moles/Vol] 109 mmol/L High 98 - 10 7 mmol/L [facility] CO2 [Moles/Vol] 23 mmol/L 22 - 30 mmol/L [facility] Creatinine [Mass/Vol] 1.11 mg/dL High 0.58 - 0.96 mg/dL [facility] GFR/1.73 sq M.predicted among non-blacks MDRD (S/P/Bld) [Vol rate/Area] 53 mL/min/{1.73_m2} Low - PINF [facility] Comment on above: Estimated Glomerular Filtration Rate [...] 136 mg/dL High 74 - 99 mg/dL [facility] Comment on above: The [place] [employer] (ADA) provides guidance for [...] Standards of Medical Care in Diabetes 2016, [place] [employer]. Diabetes Care. 2016.39(Suppl 1). Interpretation and review of laboratory results Abnormal [facility] Potassium [Moles/Vol] 3 mmol/L Low 3.7 - 5.1 mmol/L [facility] Protein [Mass/Vol] 5.9 g/dL Low 6.3 - 8.0 g/dL [facility] Sodium [Moles/Vol] 143 mmol/L 136 - 144 mmol/L [facility] Urea nitrogen [Mass/Vol] 10 mg/dL 7 - 21 mg/dL [facility] CBC W Auto Differential pane l (Bld)on 10-10-2024 Basophils (Bld) [#/Vol] [facility] Basophils/100 WBC (Bld) 0.4 % [facility] Differential cell count method Nom (Bld) Auto [facility] Eosinophils (Bld) [#/Vol] 0.18 10*3/uL [facility] Eosinophils/100 WBC (Bld) 3.5 % [facility] Erythrocyte distribution width (RBC) [Ratio] 17.2 % High 11.5 - 15.0 % [facility] Hematocrit (Bld) [Volume fraction] 34.3 % Low 36.0 - 46.0 % [facility] Hemoglobin (Bld) [Mass/Vol] 11.4 g/dL Low 11.5 - 15.5 g/dL [facility] Immature granulocytes (Bld) [#/Vol] [facility] Immature granulocytes/100 WBC (Bld) 0.4 % [facility] Interpretation and review of laboratory results Abnormal [facility] Lymphocytes (Bld) [#/Vol] 1.02 10*3/uL [facility] Lymphocytes/100 WBC (Bld) 20 % [facility] MCH (RBC) [Entitic mass] 36.4 pg High 26.0 - 34.0 pg [facility] MCHC (RBC) [Mass/Vol] 33.2 g/dL 30.5 - 36.0 g/dL [facility] MCV (RBC) [Entitic vol] 109.6 fL High 80.0 - 100.0 fL [facility] Monocytes (Bld) [#/Vol] 0.5 10*3/uL NINF [facility] Monocytes/100 WBC (Bld) 9.8 % [facility] Neutrophils (Bld) [#/Vol] 3.37 10*3/uL [facility] Neutrophils/100 WBC (Bld) 65.9 % [facility] Nucleated RBC (Bld) [#/Vol] NINF [facility] Nucleated RBC/100 WBC (Bld) [Ratio] 0 % /100 WBC [facility] Platelet mean volume (Bld) [Entitic vol] 9.8 fL 9.0 - 12.7 fL [facility] Platelets (Bld) [#/Vol] 143 10*3/uL Low [facility] RBC (Bld) [#/Vol] 3.13 10*6/uL Low 3.90 - 5.2 0 m/uL [facility] WBC (Bld) [#/Vol] 5.11 10*3/uL [facility] Comprehensive metabolic 2000 panelOrdered By: Alicia Fajardo on 10-10-2024 Albumin [Mass/Vol] 3.5 g/dL Low 3.9 - 4.9 g/dL [facility] ALP [Catalytic activity/Vol] 106 U/L 34 - 123 U/L [facility] ALT [Catalytic activity/Vol] 15 U/L 7 - 38 U/L [facility] Anion gap [Moles/Vol] 7 mmol/L Low 8 - 15 mmol/L [facility] AST [Catalytic activity/Vol] 29 U/L 13 - 35 U/L [facility] Bilirubin [Mass/Vol] 0.6 mg/dL 0.2 - 1 .3 mg/dL [facility] Calcium [Mass/Vol] 9.8 mg/dL 8.5 - 10. 2 mg/dL [facility] Chloride [Moles/Vol] 103 mmol/L 98 - 10 7 mmol/L [facility] CO2 [Moles/Vol] 32 mmol/L High 22 - 30 mmol/L [facility] Creatinine [Mass/Vol] 0.89 mg/dL 0.58 - 0.96 mg/dL [facility] GFR/1.73 sq M.predicted among non-blacks MDRD (S/P/Bld) [Vol rate/Area] 69 mL/min/{1.73_m2} - PINF [facility] Comment on above: Estimated Glomerular Filtration Rate [...] 105 mg/dL High 74 - 99 mg/dL [facility] Comment on above: The [place] [employer] (ADA) provides guidance for [...] Standards of Medical Care in Diabetes 2016, [place] [employer]. Diabetes Care. 2016.39(Suppl 1). Interpretation and review of laboratory results Abnormal [facility] Potassium [Moles/Vol] 4 mmol/L 3.7 - 5.1 mmol/L [facility] Protein [Mass/Vol] 5.9 g/dL Low 6.3 - 8.0 g/dL [facility] Sodium [Moles/Vol] 142 mmol/L 136 - 144 mmol/L [facility] Urea nitrogen [Mass/Vol] 8 mg/dL 7 - 21 mg/dL [facility] CBC W Auto Differential pane l (Bld)on 10-03-2024 Basophils (Bld) [#/Vol] NINF [facility] Basophils/100 WBC (Bld) 0.4 % [facility] Differential cell count method Nom (Bld) Auto [facility] Eosinophils (Bld) [#/Vol] 0.16 10*3/uL [facility] Eosinophils/100 WBC (Bld) 3.4 % [facility] Erythrocyte distribution width (RBC) [Ratio] 17.2 % High 11.5 - 15.0 % [facility] Hematocrit (Bld) [Volume fraction] 33 % Low 36.0 - 46.0 % [facility] Hemoglobin (Bld) [Mass/Vol] 11.1 g/dL Low 11.5 - 15.5 g/dL [facility] Immature granulocytes (Bld) [#/Vol] [facility] Immature granulocytes/100 WBC (Bld) 0.4 % [facility] Interpretation and review of laboratory results Abnormal [facility] Lymphocytes (Bld) [#/Vol] 0.82 10*3/uL Low [facility] Lymphocytes/100 WBC (Bld) 17.4 % [facility] MCH (RBC) [Entitic mass] 36.2 pg High 26.0 - 34.0 pg [facility] MCHC (RBC) [Mass/Vol] 33.6 g/dL 30.5 - 36.0 g/dL [facility] MCV (RBC) [Entitic vol] 107.5 fL High 80.0 - 100.0 fL [facility] Monocytes (Bld) [#/Vol] 0.53 10*3/uL [facility] Monocytes/100 WBC (Bld) 11.3 % [facility] Neutrophils (Bld) [#/Vol] 3.16 10*3/uL [facility] Neutrophils/100 WBC (Bld) 67.1 % [facility] Nucleated RBC (Bld) [#/Vol] [facility] Nucleated RBC/100 WBC (Bld) [Ratio] 0 % /100 WBC [facility] Platelet mean volume (Bld) [Entitic vol] 9.6 fL 9.0 - 12.7 fL [facility] Platelets (Bld) [#/Vol] 173 10*3/uL [facility] RBC (Bld) [#/Vol] 3.07 10*6/uL Low 3.90 - 5.2 0 m/uL [facility] WBC (Bld) [#/Vol] 4.71 10*3/uL [facility] Comprehensive metabolic 2000 panelOrdered By: Alicia Fajardo on 10-03-2024 Albumin [Mass/Vol] 3.5 g/dL Low 3.9 - 4.9 g/dL [facility] ALP [Catalytic activity/Vol] 95 U/L 34 - 123 U/L [facility] ALT [Catalytic activity/Vol] 25 U/L 7 - 38 U/L [facility] Anion gap [Moles/Vol] 10 mmol/L 8 - 15 mmol/L [facility] AST [Catalytic activity/Vol] 49 U/L High 13 - 35 U/L [facility] Bilirubin [Mass/Vol] 0.6 mg/dL 0.2 - 1 .3 mg/dL [facility] Calcium [Mass/Vol] 9.5 mg/dL 8.5 - 10. 2 mg/dL [facility] Chloride [Moles/Vol] 106 mmol/L 98 - 10 7 mmol/L [facility] CO2 [Moles/Vol] 28 mmol/L 22 - 30 mmol/L [facility] Creatinine [Mass/Vol] 1.33 mg/dL High 0.58 - 0.96 mg/dL [facility] GFR/1.73 sq M.predicted among non-blacks MDRD (S/P/Bld) [Vol rate/Area] 43 mL/min/{1.73_m2} Low - PINF [facility] Comment on above: Estimated Glomerular Filtration Rate [...] 112 mg/dL High 74 - 99 mg/dL [facility] Comment on above: The [place] [employer] (ADA) provides guidance for [...] Standards of Medical Care in Diabetes 2016, [place] [employer]. Diabetes Care. 2016.39(Suppl 1). Interpretation and review of laboratory results Abnormal [facility] Potassium [Moles/Vol] 3.5 mmol/L Low 3.7 - 5.1 mmol/L [facility] Protein [Mass/Vol] 5.6 g/dL Low 6.3 - 8.0 g/dL [facility] Sodium [Moles/Vol] 144 mmol/L 136 - 144 mmol/L [facility] Urea nitrogen [Mass/Vol] 18 mg/dL 7 - 21 mg/dL [facility] Echo Completeon 09-13-2024 Echo Complete [facility] [address] [place] [address] Echo Complete 09/13/24 1406 MR#: [id number] Acct: [id number] Name: RENATE CHRISTIANSEN Rep #: [id number] : 1955 68 From: Mayco Galeano MD Attending Dr: Dr. Rip Rivers, DO Status: REG CL I Ordering Dr: Rip Rivers DO Date: 09/13/24 Location: [facility] Sex: F C Admitted: Reason For Study [...] DO Date Dictated: 09/13/241405 Date Transcribed: 09/13/241612 Server: Signed Normal [facility] Echocardiogram study reportO rdered By: Mayco Galeano on 09-13-2024 Study report [facility] [address] [place] [address] Echo Complete 09/13/241405 MR#: [id number] Acct: [id number] Name: RENATE CHRISTIANSEN Rep #:[id number] : 1955 68 From: Mayco Hernandez Attending Dr: Dr. Rip Rivers DO atus: REG CLI Ordering Dr: Rip Rivers DO Date: 09/04 Location: [facility] Sex: F C Admitted: Reason For Study [...] ~ Date Dictated: 09/13/241405 Date Transcribed: 09/13/241612 Server: Signed [facility] Work Phone: CBC W Auto Differential pane l (Bld)on 09-05-2024 Basophils (Bld) [#/Vol] [facility] Basophils/100 WBC (Bld) 0.3 % [facility] Differential cell count method Nom (Bld) Auto [facility] Eosinophils (Bld) [#/Vol] 0.12 10*3/uL [facility] Eosinophils/100 WBC (Bld) 3.5 % [facility] Erythrocyte distribution width (RBC) [Ratio] 16.2 % High 11.5 - 15.0 % [facility] Hematocrit (Bld) [Volume fraction] 36.9 % 36.0 - 46.0 % [facility] Hemoglobin (Bld) [Mass/Vol] 12.8 g/dL 11.5 - 15.5 g/dL [facility] Immature granulocytes (Bld) [#/Vol] [facility] Immature granulocytes/100 WBC (Bld) 0.3 % [facility] Interpretation and review of laboratory results Abnormal [facility] Lymphocytes (Bld) [#/Vol] 0.78 10*3/uL Low [facility] Lymphocytes/100 WBC (Bld) 22.5 % [facility] MCH (RBC) [Entitic mass] 37 pg High 26.0 - 34.0 pg [facility] MCHC (RBC) [Mass/Vol] 34.7 g/dL 30.5 - 36.0 g/dL [facility] MCV (RBC) [Entitic vol] 106.6 fL High 80.0 - 100.0 fL [facility] Monocytes (Bld) [#/Vol] 0.43 10*3/uL [facility] Monocytes/100 WBC (Bld) 12.4 % [facility] Neutrophils (Bld) [#/Vol] 2.11 10*3/uL [facility] Neutrophils/100 WBC (Bld) 61 % [facility] Nucleated RBC (Bld) [#/Vol] [facility] Nucleated RBC/100 WBC (Bld) [Ratio] 0 % /100 WBC [facility] Platelet mean volume (Bld) [Entitic vol] 9.4 fL 9.0 - 12.7 fL [facility] Platelets (Bld) [#/Vol] 122 10*3/uL Low [facility] RBC (Bld) [#/Vol] 3.46 10*6/uL Low 3.90 - 5.2 0 m/uL [facility] WBC (Bld) [#/Vol] 3.46 10*3/uL Low [facility] Comprehensive metabolic 2000 panelOrdered By: Sasha Velasco on 09-05-2024 Albumin [Mass/Vol] 4.1 g/dL 3.9 - 4.9 g/dL [facility] ALP [Catalytic activity/Vol] 126 U/L High 34 - 123 U/L [facility] ALT [Catalytic activity/Vol] 16 U/L 7 - 38 U/L [facility] Anion gap [Moles/Vol] 6 mmol/L Low 8 - 15 mmol/L [facility] AST [Catalytic activity/Vol] 32 U/L 13 - 35 U/L [facility] Bilirubin [Mass/Vol] 0.7 mg/dL 0.2 - 1 .3 mg/dL [facility] Calcium [Mass/Vol] 10 mg/dL 8.5 - 10. 2 mg/dL [facility] Chloride [Moles/Vol] 105 mmol/L 98 - 10 7 mmol/L [facility] CO2 [Moles/Vol] 30 mmol/L 22 - 30 mmol/L [facility] Creatinine [Mass/Vol] 1.05 mg/dL High 0.58 - 0.96 mg/dL [facility] GFR/1.73 sq M.predicted among non-blacks MDRD (S/P/Bld) [Vol rate/Area] 57 mL/min/{1.73_m2} Low - PINF [facility] Comment on above: Estimated Glomerular Filtration Rate [...] 102 mg/dL High 74 - 99 mg/dL [facility] Comment on above: The [place] [employer] (ADA) provides guidance for [...] Standards of Medical Care in Diabetes 2016, [place] [employer]. Diabetes Care. 2016.39(Suppl 1). Interpretation and review of laboratory results Abnormal [facility] Potassium [Moles/Vol] 3.9 mmol/L 3.7 - 5.1 mmol/L [facility] Protein [Mass/Vol] 6.4 g/dL 6.3 - 8.0 g/dL [facility] Sodium [Moles/Vol] 141 mmol/L 136 - 144 mmol/L [facility] Urea nitrogen [Mass/Vol] 9 mg/dL 7 - 21 mg/dL [facility] CBC W Auto Differential pane l (Bld)on 08-30-2024 Basophils (Bld) [#/Vol] [facility] Basophils/100 WBC (Bld) 0.5 % [facility] Differential cell count method Nom (Bld) Auto [facility] Eosinophils (Bld) [#/Vol] 0.15 10*3/uL [facility] Eosinophils/100 WBC (Bld) 4 % [facility] Erythrocyte distribution width (RBC) [Ratio] 15.4 % High 11.5 - 15.0 % [facility] Hematocrit (Bld) [Volume fraction] 35.4 % Low 36.0 - 46.0 % [facility] Hemoglobin (Bld) [Mass/Vol] 12.1 g/dL 11.5 - 15.5 g/dL [facility] Immature granulocytes (Bld) [#/Vol] [facility] Immature granulocytes/100 WBC (Bld) 0.3 % [facility] Interpretation and review of laboratory results Abnormal [facility] Lymphocytes (Bld) [#/Vol] 1 10*3/uL [facility] Lymphocytes/100 WBC (Bld) 26.5 % [facility] MCH (RBC) [Entitic mass] 36.8 pg High 26.0 - 34.0 pg [facility] MCHC (RBC) [Mass/Vol] 34.2 g/dL 30.5 - 36.0 g/dL [facility] MCV (RBC) [Entitic vol] 107.6 fL High 80.0 - 100.0 fL [facility] Monocytes (Bld) [#/Vol] 0.46 10*3/uL NINF [facility] Monocytes/100 WBC (Bld) 12.2 % [facility] Neutrophils (Bld) [#/Vol] 2.14 10*3/uL [facility] Neutrophils/100 WBC (Bld) 56.5 % [facility] Nucleated RBC (Bld) [#/Vol] NINF [facility] Nucleated RBC/100 WBC (Bld) [Ratio] 0 % /100 WBC [facility] Platelet mean volume (Bld) [Entitic vol] 9.3 fL 9.0 - 12.7 fL [facility] Platelets (Bld) [#/Vol] 136 10*3/uL Low [facility] RBC (Bld) [#/Vol] 3.29 10*6/uL Low 3.90 - 5.2 0 m/uL [facility] WBC (Bld) [#/Vol] 3.78 10*3/uL [facility] Comprehensive metabolic 2000 panelOrdered By: Sasha Velasco on 08-30-2024 Albumin [Mass/Vol] 4 g/dL 3.9 - 4.9 g/dL [facility] ALP [Catalytic activity/Vol] 115 U/L 34 - 123 U/L [facility] ALT [Catalytic activity/Vol] 16 U/L 7 - 38 U/L [facility] Anion gap [Moles/Vol] 5 mmol/L Low 8 - 15 mmol/L [facility] AST [Catalytic activity/Vol] 28 U/L 13 - 35 U/L [facility] Bilirubin [Mass/Vol] 0.5 mg/dL 0.2 - 1 .3 mg/dL [facility] Calcium [Mass/Vol] 9.3 mg/dL 8.5 - 10. 2 mg/dL [facility] Chloride [Moles/Vol] 107 mmol/L 98 - 10 7 mmol/L [facility] CO2 [Moles/Vol] 29 mmol/L 22 - 30 mmol/L [facility] Creatinine [Mass/Vol] 1.36 mg/dL High 0.58 - 0.96 mg/dL [facility] GFR/1.73 sq M.predicted among non-blacks MDRD (S/P/Bld) [Vol rate/Area] 42 mL/min/{1.73_m2} Low - PINF [facility] Comment on above: Estimated Glomerular Filtration Rate [...] [Mass/Vol] 97 mg/dL 74 - 99 mg/dL [facility] Comment on above: The [place] [employer] (ADA) provides guidance for [...] Standards of Medical Care in Diabetes 2016, [place] [employer]. Diabetes Care. 2016.39(Suppl 1). Interpretation and review of laboratory results Abnormal [facility] Potassium [Moles/Vol] 3.8 mmol/L 3.7 - 5.1 mmol/L [facility] Protein [Mass/Vol] 6.1 g/dL Low 6.3 - 8.0 g/dL [facility] Sodium [Moles/Vol] 141 mmol/L 136 - 144 mmol/L [facility] Urea nitrogen [Mass/Vol] 18 mg/dL 7 - 21 mg/dL [facility] CBC W Auto Differential pane l (Bld)on 08-15-2024 Basophils (Bld) [#/Vol] NINF [facility] Basophils/100 WBC (Bld) 0.6 % [facility] Differential cell count method Nom (Bld) Auto [facility] Eosinophils (Bld) [#/Vol] 0.18 10*3/uL [facility] Eosinophils/100 WBC (Bld) 5.6 % [facility] Erythrocyte distribution width (RBC) [Ratio] 15 % 11.5 - 15.0 % [facility] Hematocrit (Bld) [Volume fraction] 36.3 % 36.0 - 46.0 % [facility] Hemoglobin (Bld) [Mass/Vol] 12.1 g/dL 11.5 - 15.5 g/dL [facility] Immature granulocytes (Bld) [#/Vol] NINF [facility] Immature granulocytes/100 WBC (Bld) 0.3 % [facility] Interpretation and review of laboratory results Abnormal [facility] Lymphocytes (Bld) [#/Vol] 0.83 10*3/uL Low [facility] Lymphocytes/100 WBC (Bld) 25.7 % [facility] MCH (RBC) [Entitic mass] 36.8 pg High 26.0 - 34.0 pg [facility] MCHC (RBC) [Mass/Vol] 33.3 g/dL 30.5 - 36.0 g/dL [facility] MCV (RBC) [Entitic vol] 110.3 fL High 80.0 - 100.0 fL [facility] Monocytes (Bld) [#/Vol] 0.42 10*3/uL [facility] Monocytes/100 WBC (Bld) 13 % [facility] Neutrophils (Bld) [#/Vol] 1.77 10*3/uL [facility] Neutrophils/100 WBC (Bld) 54.8 % [facility] Nucleated RBC (Bld) [#/Vol] [facility] Nucleated RBC/100 WBC (Bld) [Ratio] 0 % /100 WBC [facility] Platelet mean volume (Bld) [Entitic vol] 9.3 fL 9.0 - 12.7 fL [facility] Platelets (Bld) [#/Vol] 120 10*3/uL Low [facility] RBC (Bld) [#/Vol] 3.29 10*6/uL Low 3.90 - 5.2 0 m/uL [facility] WBC (Bld) [#/Vol] 3.23 10*3/uL Low [facility] Comprehensive metabolic 2000 panelOrdered By: Alicia Fajardo on 08-15-2024 Albumin [Mass/Vol] 3.9 g/dL 3.9 - 4.9 g/dL [facility] ALP [Catalytic activity/Vol] 119 U/L 34 - 123 U/L [facility] ALT [Catalytic activity/Vol] 19 U/L 7 - 38 U/L [facility] Anion gap [Moles/Vol] 7 mmol/L Low 8 - 15 mmol/L [facility] AST [Catalytic activity/Vol] 33 U/L 13 - 35 U/L [facility] Bilirubin [Mass/Vol] 0.7 mg/dL 0.2 - 1 .3 mg/dL [facility] Calcium [Mass/Vol] 9.4 mg/dL 8.5 - 10. 2 mg/dL [facility] Chloride [Moles/Vol] 103 mmol/L 98 - 10 7 mmol/L [facility] CO2 [Moles/Vol] 31 mmol/L High 22 - 30 mmol/L [facility] Creatinine [Mass/Vol] 0.99 mg/dL High 0.58 - 0.96 mg/dL [facility] GFR/1.73 sq M.predicted among non-blacks MDRD (S/P/Bld) [Vol rate/Area] 61 mL/min/{1.73_m2} - PINF [facility] Comment on above: Estimated Glomerular Filtration Rate [...] 104 mg/dL High 74 - 99 mg/dL [facility] Comment on above: The [place] [employer] (ADA) provides guidance for [...] Standards of Medical Care in Diabetes 2016, [place] [employer]. Diabetes Care. 2016.39(Suppl 1). Interpretation and review of laboratory results Abnormal [facility] Potassium [Moles/Vol] 3.6 mmol/L Low 3.7 - 5.1 mmol/L [facility] Protein [Mass/Vol] 5.9 g/dL Low 6.3 - 8.0 g/dL [facility] Sodium [Moles/Vol] 141 mmol/L 136 - 144 mmol/L [facility] Urea nitrogen [Mass/Vol] 12 mg/dL 7 - 21 mg/dL [facility] CBC W Auto Differential pane l (Bld)on 07-25-2024 Basophils (Bld) [#/Vol] [facility] Basophils/100 WBC (Bld) 0.5 % [facility] Differential cell count method Nom (Bld) Auto [facility] Eosinophils (Bld) [#/Vol] 0.16 10*3/uL [facility] Eosinophils/100 WBC (Bld) 4.2 % [facility] Erythrocyte distribution width (RBC) [Ratio] 14 % 11.5 - 15.0 % [facility] Hematocrit (Bld) [Volume fraction] 39.3 % 36.0 - 46.0 % [facility] Hemoglobin (Bld) [Mass/Vol] 13.2 g/dL 11.5 - 15.5 g/dL [facility] Immature granulocytes (Bld) [#/Vol] [facility] Immature granulocytes/100 WBC (Bld) 0.3 % [facility] Interpretation and review of laboratory results Abnormal [facility] Lymphocytes (Bld) [#/Vol] 0.79 10*3/uL Low [facility] Lymphocytes/100 WBC (Bld) 20.8 % [facility] MCH (RBC) [Entitic mass] 37.7 pg High 26.0 - 34.0 pg [facility] MCHC (RBC) [Mass/Vol] 33.6 g/dL 30.5 - 36.0 g/dL [facility] MCV (RBC) [Entitic vol] 112.3 fL High 80.0 - 100.0 fL [facility] Monocytes (Bld) [#/Vol] 0.32 10*3/uL [facility] Monocytes/100 WBC (Bld) 8.4 % [facility] Neutrophils (Bld) [#/Vol] 2.49 10*3/uL [facility] Neutrophils/100 WBC (Bld) 65.8 % [facility] Nucleated RBC (Bld) [#/Vol] [facility] Nucleated RBC/100 WBC (Bld) [Ratio] 0 % /100 WBC [facility] Platelet mean volume (Bld) [Entitic vol] 10.2 fL 9.0 - 12.7 fL [facility] Platelets (Bld) [#/Vol] 115 10*3/uL Low [facility] RBC (Bld) [#/Vol] 3.5 10*6/uL Low 3.90 - 5.2 0 m/uL [facility] WBC (Bld) [#/Vol] 3.79 10*3/uL [facility] Comprehensive metabolic 2000 panelOrdered By: Alicia Fajardo on 07-25-2024 Albumin [Mass/Vol] 4.2 g/dL 3.9 - 4.9 g/dL [facility] ALP [Catalytic activity/Vol] 143 U/L High 34 - 123 U/L [facility] ALT [Catalytic activity/Vol] 17 U/L 7 - 38 U/L [facility] Anion gap [Moles/Vol] 11 mmol/L 8 - 15 mmol/L [facility] AST [Catalytic activity/Vol] 31 U/L 13 - 35 U/L [facility] Bilirubin [Mass/Vol] 0.5 mg/dL 0.2 - 1 .3 mg/dL [facility] Calcium [Mass/Vol] 10.2 mg/dL 8.5 - 10. 2 mg/dL [facility] Chloride [Moles/Vol] 104 mmol/L 98 - 10 7 mmol/L [facility] CO2 [Moles/Vol] 27 mmol/L 22 - 30 mmol/L [facility] Creatinine [Mass/Vol] 1.13 mg/dL High 0.58 - 0.96 mg/dL [facility] GFR/1.73 sq M.predicted among non-blacks MDRD (S/P/Bld) [Vol rate/Area] 52 mL/min/{1.73_m2} Low - PINF [facility] Comment on above: Estimated Glomerular Filtration Rate [...] 131 mg/dL High 74 - 99 mg/dL [facility] Comment on above: The [place] [employer] (ADA) provides guidance for [...] Standards of Medical Care in Diabetes 2016, [place] [employer]. Diabetes Care. 2016.39(Suppl 1). Interpretation and review of laboratory results Abnormal [facility] Potassium [Moles/Vol] 3.6 mmol/L Low 3.7 - 5.1 mmol/L [facility] Protein [Mass/Vol] 6.6 g/dL 6.3 - 8.0 g/dL [facility] Sodium [Moles/Vol] 142 mmol/L 136 - 144 mmol/L [facility] Urea nitrogen [Mass/Vol] 17 mg/dL 7 - 21 mg/dL [facility] CBC W Auto Differential pane l (Bld)on 07-04-2024 Basophils (Bld) [#/Vol] [facility] Basophils/100 WBC (Bld) 0.3 % [facility] Differential cell count method Nom (Bld) Auto [facility] Eosinophils (Bld) [#/Vol] 0.15 10*3/uL [facility] Eosinophils/100 WBC (Bld) 4.4 % [facility] Erythrocyte distribution width (RBC) [Ratio] 16.7 % High 11.5 - 15.0 % [facility] Hematocrit (Bld) [Volume fraction] 33.9 % Low 36.0 - 46.0 % [facility] Hemoglobin (Bld) [Mass/Vol] 11.5 g/dL 11.5 - 15.5 g/dL [facility] Immature granulocytes (Bld) [#/Vol] [facility] Immature granulocytes/100 WBC (Bld) 0.6 % [facility] Interpretation and review of laboratory results Abnormal [facility] Lymphocytes (Bld) [#/Vol] 0.93 10*3/uL Low [facility] Lymphocytes/100 WBC (Bld) 27.2 % [facility] MCH (RBC) [Entitic mass] 39.0 pg High 26.0 - 34.0 pg [facility] MCHC (RBC) [Mass/Vol] 33.9 g/dL 30.5 - 36.0 g/dL [facility] MCV (RBC) [Entitic vol] 114.9 fL High 80.0 - 100.0 fL [facility] Monocytes (Bld) [#/Vol] 0.42 10*3/uL NINF [facility] Monocytes/100 WBC (Bld) 12.3 % [facility] Neutrophils (Bld) [#/Vol] 1.89 10*3/uL [facility] Neutrophils/100 WBC (Bld) 55.2 % [facility] Nucleated RBC (Bld) [#/Vol] [facility] Nucleated RBC/100 WBC (Bld) [Ratio] 0.0 % /100 WBC [facility] Platelet mean volume (Bld) [Entitic vol] 9.2 fL 9.0 - 12.7 fL [facility] Platelets (Bld) [#/Vol] 101 10*3/uL Low [facility] RBC (Bld) [#/Vol] 2.95 10*6/uL Low 3.90 - 5.2 0 m/uL [facility] WBC (Bld) [#/Vol] 3.42 10*3/uL Low [facility] Comprehensive metabolic 2000 panelOrdered By: Sasha Velasco on 07-04-2024 Albumin [Mass/Vol] 4.0 g/dL 3.9 - 4.9 g/dL [facility] ALP [Catalytic activity/Vol] 108 U/L 34 - 123 U/L [facility] ALT [Catalytic activity/Vol] 22 U/L 7 - 38 U/L [facility] Anion gap [Moles/Vol] 9 mmol/L 8 - 15 mmol/L [facility] AST [Catalytic activity/Vol] 40 U/L High 13 - 35 U/L [facility] Bilirubin [Mass/Vol] 0.6 mg/dL 0.2 - 1 .3 mg/dL [facility] Calcium [Mass/Vol] 9.7 mg/dL 8.5 - 10. 2 mg/dL [facility] Chloride [Moles/Vol] 105 mmol/L 98 - 10 7 mmol/L [facility] CO2 [Moles/Vol] 26 mmol/L 22 - 30 mmol/L [facility] Creatinine [Mass/Vol] 1.25 mg/dL High 0.58 - 0.96 mg/dL [facility] GFR/1.73 sq M.predicted among non-blacks MDRD (S/P/Bld) [Vol rate/Area] 46 mL/min/{1.73_m2} Low - PINF [facility] Comment on above: Estimated Glomerular Filtration Rate [...] 143 mg/dL High 74 - 99 mg/dL [facility] Comment on above: The [place] [employer] (ADA) provides guidance for [...] Standards of Medical Care in Diabetes 2016, [place] [employer]. Diabetes Care. 2016.39(Suppl 1). Interpretation and review of laboratory results Abnormal [facility] Potassium [Moles/Vol] 3.8 mmol/L 3.7 - 5.1 mmol/L [facility] Protein [Mass/Vol] 5.8 g/dL Low 6.3 - 8.0 g/dL [facility] Sodium [Moles/Vol] 140 mmol/L 136 - 144 mmol/L [facility] Urea nitrogen [Mass/Vol] 16 mg/dL 7 - 21 mg/dL [facility] CBC W Auto Differential pane l (Bld)on 06-13-2024 Basophils (Bld) [#/Vol] [facility] Basophils/100 WBC (Bld) 0.6 % [facility] Differential cell count method Nom (Bld) Auto [facility] Eosinophils (Bld) [#/Vol] 0.24 10*3/uL [facility] Eosinophils/100 WBC (Bld) 6.9 % [facility] Erythrocyte distribution width (RBC) [Ratio] 17.2 % High 11.5 - 15.0 % [facility] Hematocrit (Bld) [Volume fraction] 35.5 % Low 36.0 - 46.0 % [facility] Hemoglobin (Bld) [Mass/Vol] 12.1 g/dL 11.5 - 15.5 g/dL [facility] Immature granulocytes (Bld) [#/Vol] [facility] Immature granulocytes/100 WBC (Bld) 0.0 % [facility] Interpretation and review of laboratory results Abnormal [facility] Lymphocytes (Bld) [#/Vol] 0.77 10*3/uL Low [facility] Lymphocytes/100 WBC (Bld) 22.0 % [facility] MCH (RBC) [Entitic mass] 39.4 pg High 26.0 - 34.0 pg [facility] MCHC (RBC) [Mass/Vol] 34.1 g/dL 30.5 - 36.0 g/dL [facility] MCV (RBC) [Entitic vol] 115.6 fL High 80.0 - 100.0 fL [facility] Monocytes (Bld) [#/Vol] 0.51 10*3/uL [facility] Monocytes/100 WBC (Bld) 14.6 % [facility] Neutrophils (Bld) [#/Vol] 1.96 10*3/uL [facility] Neutrophils/100 WBC (Bld) 55.9 % [facility] Nucleated RBC (Bld) [#/Vol] [facility] Nucleated RBC/100 WBC (Bld) [Ratio] 0.0 % /100 WBC [facility] Platelet mean volume (Bld) [Entitic vol] 9.6 fL 9.0 - 12.7 fL [facility] Platelets (Bld) [#/Vol] 138 10*3/uL Low [facility] RBC (Bld) [#/Vol] 3.07 10*6/uL Low 3.90 - 5.2 0 m/uL [facility] WBC (Bld) [#/Vol] 3.50 10*3/uL Low [facility] Comprehensive metabolic 2000 panelOrdered By: Sasha Velasco on 06-13-2024 Albumin [Mass/Vol] 4.0 g/dL 3.9 - 4.9 g/dL [facility] ALP [Catalytic activity/Vol] 112 U/L 34 - 123 U/L [facility] ALT [Catalytic activity/Vol] 18 U/L 7 - 38 U/L [facility] Anion gap [Moles/Vol] 7 mmol/L Low 8 - 15 mmol/L [facility] AST [Catalytic activity/Vol] 35 U/L 13 - 35 U/L [facility] Bilirubin [Mass/Vol] 0.9 mg/dL 0.2 - 1 .3 mg/dL [facility] Calcium [Mass/Vol] 9.2 mg/dL 8.5 - 10. 2 mg/dL [facility] Chloride [Moles/Vol] 106 mmol/L 98 - 10 7 mmol/L [facility] CO2 [Moles/Vol] 27 mmol/L 22 - 30 mmol/L [facility] Creatinine [Mass/Vol] 1.23 mg/dL High 0.58 - 0.96 mg/dL [facility] GFR/1.73 sq M.predicted among non-blacks MDRD (S/P/Bld) [Vol rate/Area] 47 mL/min/{1.73_m2} Low - PINF [facility] Comment on above: Estimated Glomerular Filtration Rate [...] 104 mg/dL High 74 - 99 mg/dL [facility] Comment on above: The [place] [employer] (ADA) provides guidance for [...] Standards of Medical Care in Diabetes 2016, [place] [employer]. Diabetes Care. 2016.39(Suppl 1). Interpretation and review of laboratory results Abnormal [facility] Potassium [Moles/Vol] 4.5 mmol/L 3.7 - 5.1 mmol/L [facility] Protein [Mass/Vol] 6.0 g/dL Low 6.3 - 8.0 g/dL [facility] Sodium [Moles/Vol] 140 mmol/L 136 - 144 mmol/L [facility] Urea nitrogen [Mass/Vol] 15 mg/dL 7 - 21 mg/dL [facility] CBC W Auto Differential pane l (Bld)on 05-23-2024 Basophils (Bld) [#/Vol] [facility] Basophils/100 WBC (Bld) 0.6 % [facility] Differential cell count method Nom (Bld) Auto [facility] Eosinophils (Bld) [#/Vol] 0.21 10*3/uL [facility] Eosinophils/100 WBC (Bld) 5.8 % [facility] Erythrocyte distribution width (RBC) [Ratio] 17.4 % High 11.5 - 15.0 % [facility] Hematocrit (Bld) [Volume fraction] 35.2 % Low 36.0 - 46.0 % [facility] Hemoglobin (Bld) [Mass/Vol] 12.1 g/dL 11.5 - 15.5 g/dL [facility] Immature granulocytes (Bld) [#/Vol] [facility] Immature granulocytes/100 WBC (Bld) 0.3 % [facility] Interpretation and review of laboratory results Abnormal [facility] Lymphocytes (Bld) [#/Vol] 0.65 10*3/uL Low [facility] Lymphocytes/100 WBC (Bld) 18.1 % [facility] MCH (RBC) [Entitic mass] 39.4 pg High 26.0 - 34.0 pg [facility] MCHC (RBC) [Mass/Vol] 34.4 g/dL 30.5 - 36.0 g/dL [facility] MCV (RBC) [Entitic vol] 114.7 fL High 80.0 - 100.0 fL [facility] Monocytes (Bld) [#/Vol] 0.56 10*3/uL [facility] Monocytes/100 WBC (Bld) 15.6 % [facility] Neutrophils (Bld) [#/Vol] 2.15 10*3/uL [facility] Neutrophils/100 WBC (Bld) 59.6 % [facility] Nucleated RBC (Bld) [#/Vol] NINF [facility] Nucleated RBC/100 WBC (Bld) [Ratio] 0.0 % /100 WBC [facility] Platelet mean volume (Bld) [Entitic vol] 9.9 fL 9.0 - 12.7 fL [facility] Platelets (Bld) [#/Vol] 136 10*3/uL Low [facility] RBC (Bld) [#/Vol] 3.07 10*6/uL Low 3.90 - 5.2 0 m/uL [facility] WBC (Bld) [#/Vol] 3.60 10*3/uL Low [facility] Comprehensive metabolic 2000 panelOrdered By: Sasha Velasco on 05-23-2024 Albumin [Mass/Vol] 4.2 g/dL 3.9 - 4.9 g/dL [facility] ALP [Catalytic activity/Vol] 116 U/L 34 - 123 U/L [facility] ALT [Catalytic activity/Vol] 17 U/L 7 - 38 U/L [facility] Anion gap [Moles/Vol] 9 mmol/L 8 - 15 mmol/L [facility] AST [Catalytic activity/Vol] 37 U/L High 13 - 35 U/L [facility] Bilirubin [Mass/Vol] 1.1 mg/dL 0.2 - 1 .3 mg/dL [facility] Calcium [Mass/Vol] 10.2 mg/dL 8.5 - 10. 2 mg/dL [facility] Chloride [Moles/Vol] 103 mmol/L 98 - 10 7 mmol/L [facility] CO2 [Moles/Vol] 28 mmol/L 22 - 30 mmol/L [facility] Creatinine [Mass/Vol] 1.40 mg/dL High 0.58 - 0.96 mg/dL [facility] GFR/1.73 sq M.predicted among non-blacks MDRD (S/P/Bld) [Vol rate/Area] 41 mL/min/{1.73_m2} Low - PINF [facility] Comment on above: Estimated Glomerular Filtration Rate [...] 111 mg/dL High 74 - 99 mg/dL [facility] Comment on above: The [place] [employer] (ADA) provides guidance for [...] Standards of Medical Care in Diabetes 2016, [place] [employer]. Diabetes Care. 2016.39(Suppl 1). Interpretation and review of laboratory results Abnormal [facility] Potassium [Moles/Vol] 3.8 mmol/L 3.7 - 5.1 mmol/L [facility] Protein [Mass/Vol] 6.1 g/dL Low 6.3 - 8.0 g/dL [facility] Sodium [Moles/Vol] 140 mmol/L 136 - 144 mmol/L [facility] Urea nitrogen [Mass/Vol] 16 mg/dL 7 - 21 mg/dL [facility] Cardiology Visit Reporton Cardiology Visit Report [facility] [address] [place] [address] OFFICE VISIT Date of Service: 05/21/24 MR#: [id number] Acct: [id number] Name: RENATE CHRISTIANSEN Rep #: [id number] : 1955 Provider: JOANNE nix Age/Sex: 68/F Location: [facility] [place] Status: Signed HPI HPI History of Present [...] air Intake Visit Reasons: 6 M FU [employer] Custom Required: No Accompanied by: Self Is patient [...] 10:09) Fever and skin rash hydrocodone (From [place]) Allergy (Verified 05/21/24 10:09) hives and nausea [...] (more content not included)... Normal [facility] CBC W Auto Differential pane l (Bld)on 05-02-2024 Basophils (Bld) [#/Vol] [facility] Basophils/100 WBC (Bld) 0.3 % [facility] Differential cell count method Nom (Bld) Auto [facility] Eosinophils (Bld) [#/Vol] 0.16 10*3/uL [facility] Eosinophils/100 WBC (Bld) 4.7 % [facility] Erythrocyte distribution width (RBC) [Ratio] 17.7 % High 11.5 - 15.0 % [facility] Hematocrit (Bld) [Volume fraction] 33.9 % Low 36.0 - 46.0 % [facility] Hemoglobin (Bld) [Mass/Vol] 11.9 g/dL 11.5 - 15.5 g/dL [facility] Immature granulocytes (Bld) [#/Vol] [facility] Immature granulocytes/100 WBC (Bld) 0.0 % [facility] Interpretation and review of laboratory results Abnormal [facility] Lymphocytes (Bld) [#/Vol] 0.80 10*3/uL Low [facility] Lymphocytes/100 WBC (Bld) 23.3 % [facility] MCH (RBC) [Entitic mass] 39.5 pg High 26.0 - 34.0 pg [facility] MCHC (RBC) [Mass/Vol] 35.1 g/dL 30.5 - 36.0 g/dL [facility] MCV (RBC) [Entitic vol] 112.6 fL High 80.0 - 100.0 fL [facility] Monocytes (Bld) [#/Vol] 0.49 10*3/uL NINF [facility] Monocytes/100 WBC (Bld) 14.3 % [facility] Neutrophils (Bld) [#/Vol] 1.97 10*3/uL [facility] Neutrophils/100 WBC (Bld) 57.4 % [facility] Nucleated RBC (Bld) [#/Vol] NINF [facility] Nucleated RBC/100 WBC (Bld) [Ratio] 0.0 % /100 WBC [facility] Platelet mean volume (Bld) [Entitic vol] 9.3 fL 9.0 - 12.7 fL [facility] Platelets (Bld) [#/Vol] 123 10*3/uL Low [facility] RBC (Bld) [#/Vol] 3.01 10*6/uL Low 3.90 - 5.2 0 m/uL [facility] WBC (Bld) [#/Vol] 3.43 10*3/uL Low [facility] Comprehensive metabolic 2000 panelOrdered By: Evette Landry on 05-02-2024 Albumin [Mass/Vol] 4.1 g/dL 3.9 - 4.9 g/dL [facility] ALP [Catalytic activity/Vol] 116 U/L 34 - 123 U/L [facility] ALT [Catalytic activity/Vol] 23 U/L 7 - 38 U/L [facility] Anion gap [Moles/Vol] 10 mmol/L 8 - 15 mmol/L [facility] AST [Catalytic activity/Vol] 42 U/L High 13 - 35 U/L [facility] Bilirubin [Mass/Vol] 0.8 mg/dL 0.2 - 1 .3 mg/dL [facility] Calcium [Mass/Vol] 10.2 mg/dL 8.5 - 10. 2 mg/dL [facility] Chloride [Moles/Vol] 104 mmol/L 98 - 10 7 mmol/L [facility] CO2 [Moles/Vol] 27 mmol/L 22 - 30 mmol/L [facility] Creatinine [Mass/Vol] 1.12 mg/dL High 0.58 - 0.96 mg/dL [facility] GFR/1.73 sq M.predicted among non-blacks MDRD (S/P/Bld) [Vol rate/Area] 53 mL/min/{1.73_m2} Low - PINF [facility] Comment on above: Estimated Glomerular Filtration Rate [...] 141 mg/dL High 74 - 99 mg/dL [facility] Comment on above: The [place] [employer] (ADA) provides guidance for [...] Standards of Medical Care in Diabetes 2016, [place] [employer]. Diabetes Care. 2016.39(Suppl 1). Interpretation and review of laboratory results Abnormal [facility] Potassium [Moles/Vol] 3.2 mmol/L Low 3.7 - 5.1 mmol/L [facility] Protein [Mass/Vol] 6.1 g/dL Low 6.3 - 8.0 g/dL [facility] Sodium [Moles/Vol] 141 mmol/L 136 - 144 mmol/L [facility] Urea nitrogen [Mass/Vol] 9 mg/dL 7 - 21 mg/dL [facility] CBC W Auto Differential pane l (Bld)on 04-11-2024 Basophils (Bld) [#/Vol] 0.03 10*3/uL [facility] Basophils/100 WBC (Bld) 0.8 % [facility] Differential cell count method Nom (Bld) Auto [facility] Eosinophils (Bld) [#/Vol] 0.26 10*3/uL [facility] Eosinophils/100 WBC (Bld) 7.2 % [facility] Erythrocyte distribution width (RBC) [Ratio] 17.8 % High 11.5 - 15.0 % [facility] Hematocrit (Bld) [Volume fraction] 33.9 % Low 36.0 - 46.0 % [facility] Hemoglobin (Bld) [Mass/Vol] 11.5 g/dL 11.5 - 15.5 g/dL [facility] Immature granulocytes (Bld) [#/Vol] NINF [facility] Immature granulocytes/100 WBC (Bld) 0.3 % [facility] Interpretation and review of laboratory results Abnormal [facility] Lymphocytes (Bld) [#/Vol] 0.79 10*3/uL Low [facility] Lymphocytes/100 WBC (Bld) 21.8 % [facility] MCH (RBC) [Entitic mass] 38.0 pg High 26.0 - 34.0 pg [facility] MCHC (RBC) [Mass/Vol] 33.9 g/dL 30.5 - 36.0 g/dL [facility] MCV (RBC) [Entitic vol] 111.9 fL High 80.0 - 100.0 fL [facility] Monocytes (Bld) [#/Vol] 0.51 10*3/uL NINF [facility] Monocytes/100 WBC (Bld) 14.1 % [facility] Neutrophils (Bld) [#/Vol] 2.02 10*3/uL [facility] Neutrophils/100 WBC (Bld) 55.8 % [facility] Nucleated RBC (Bld) [#/Vol] [facility] Nucleated RBC/100 WBC (Bld) [Ratio] 0.0 % /100 WBC [facility] Platelet mean volume (Bld) [Entitic vol] 9.4 fL 9.0 - 12.7 fL [facility] Platelets (Bld) [#/Vol] 126 10*3/uL Low [facility] RBC (Bld) [#/Vol] 3.03 10*6/uL Low 3.90 - 5.2 0 m/uL [facility] WBC (Bld) [#/Vol] 3.62 10*3/uL Low [facility] Comprehensive metabolic 2000 panelOrdered By: Sasha Velasco on 04-11-2024 Albumin [Mass/Vol] 3.8 g/dL Low 3.9 - 4.9 g/dL [facility] ALP [Catalytic activity/Vol] 99 U/L 34 - 123 U/L [facility] ALT [Catalytic activity/Vol] 13 U/L 7 - 38 U/L [facility] Anion gap [Moles/Vol] 10 mmol/L 8 - 15 mmol/L [facility] AST [Catalytic activity/Vol] 30 U/L 13 - 35 U/L [facility] Bilirubin [Mass/Vol] 0.7 mg/dL 0.2 - 1 .3 mg/dL [facility] Calcium [Mass/Vol] 9.9 mg/dL 8.5 - 10. 2 mg/dL [facility] Chloride [Moles/Vol] 105 mmol/L 98 - 10 7 mmol/L [facility] CO2 [Moles/Vol] 25 mmol/L 22 - 30 mmol/L [facility] Creatinine [Mass/Vol] 1.11 mg/dL High 0.58 - 0.96 mg/dL [facility] GFR/1.73 sq M.predicted among non-blacks MDRD (S/P/Bld) [Vol rate/Area] 54 mL/min/{1.73_m2} Low - PINF [facility] Comment on above: Estimated Glomerular Filtration Rate [...] 125 mg/dL High 74 - 99 mg/dL [facility] Comment on above: The [place] [employer] (ADA) provides guidance for [...] Standards of Medical Care in Diabetes 2016, [place] [employer]. Diabetes Care. 2016.39(Suppl 1). Interpretation and review of laboratory results Abnormal [facility] Potassium [Moles/Vol] 4.1 mmol/L 3.7 - 5.1 mmol/L [facility] Protein [Mass/Vol] 5.6 g/dL Low 6.3 - 8.0 g/dL [facility] Sodium [Moles/Vol] 140 mmol/L 136 - 144 mmol/L [facility] Urea nitrogen [Mass/Vol] 10 mg/dL 7 - 21 mg/dL [facility] CBC W Auto Differential pane l (Bld)on 03-21-2024 Basophils (Bld) [#/Vol] [facility] Basophils/100 WBC (Bld) 0.3 % [facility] Differential cell count method Nom (Bld) Auto [facility] Eosinophils (Bld) [#/Vol] 0.19 10*3/uL [facility] Eosinophils/100 WBC (Bld) 6.1 % [facility] Erythrocyte distribution width (RBC) [Ratio] 17.0 % High 11.5 - 15.0 % [facility] Hematocrit (Bld) [Volume fraction] 32.8 % Low 36.0 - 46.0 % [facility] Hemoglobin (Bld) [Mass/Vol] 11.2 g/dL Low 11.5 - 15.5 g/dL [facility] Immature granulocytes (Bld) [#/Vol] [facility] Immature granulocytes/100 WBC (Bld) 0.3 % [facility] Interpretation and review of laboratory results Abnormal [facility] Lymphocytes (Bld) [#/Vol] 0.77 10*3/uL Low [facility] Lymphocytes/100 WBC (Bld) 24.8 % [facility] MCH (RBC) [Entitic mass] 38.0 pg High 26.0 - 34.0 pg [facility] MCHC (RBC) [Mass/Vol] 34.1 g/dL 30.5 - 36.0 g/dL [facility] MCV (RBC) [Entitic vol] 111.2 fL High 80.0 - 100.0 fL [facility] Monocytes (Bld) [#/Vol] 0.40 10*3/uL [facility] Monocytes/100 WBC (Bld) 12.9 % [facility] Neutrophils (Bld) [#/Vol] 1.73 10*3/uL [facility] Neutrophils/100 WBC (Bld) 55.6 % [facility] Nucleated RBC (Bld) [#/Vol] NINF [facility] Nucleated RBC/100 WBC (Bld) [Ratio] 0.0 % /100 WBC [facility] Platelet mean volume (Bld) [Entitic vol] 9.2 fL 9.0 - 12.7 fL [facility] Platelets (Bld) [#/Vol] 124 10*3/uL Low [facility] RBC (Bld) [#/Vol] 2.95 10*6/uL Low 3.90 - 5.2 0 m/uL [facility] WBC (Bld) [#/Vol] 3.11 10*3/uL Low [facility] Comprehensive metabolic 2000 panelOrdered By: Sasha Velasco on 03-21-2024 Albumin [Mass/Vol] 3.9 g/dL 3.9 - 4.9 g/dL [facility] ALP [Catalytic activity/Vol] 112 U/L 34 - 123 U/L [facility] ALT [Catalytic activity/Vol] 15 U/L 7 - 38 U/L [facility] Anion gap [Moles/Vol] 7 mmol/L Low 8 - 15 mmol/L [facility] AST [Catalytic activity/Vol] 33 U/L 13 - 35 U/L [facility] Bilirubin [Mass/Vol] 0.6 mg/dL 0.2 - 1 .3 mg/dL [facility] Calcium [Mass/Vol] 9.4 mg/dL 8.5 - 10. 2 mg/dL [facility] Chloride [Moles/Vol] 108 mmol/L High 98 - 10 7 mmol/L [facility] CO2 [Moles/Vol] 25 mmol/L 22 - 30 mmol/L [facility] Creatinine [Mass/Vol] 1.07 mg/dL High 0.58 - 0.96 mg/dL [facility] GFR/1.73 sq M.predicted among non-blacks MDRD (S/P/Bld) [Vol rate/Area] 56 mL/min/{1.73_m2} Low - PINF [facility] Comment on above: Estimated Glomerular Filtration Rate [...] 116 mg/dL High 74 - 99 mg/dL [facility] Comment on above: The [place] [employer] (ADA) provides guidance for [...] Standards of Medical Care in Diabetes 2016, [place] [employer]. Diabetes Care. 2016.39(Suppl 1). Interpretation and review of laboratory results Abnormal [facility] Potassium [Moles/Vol] 3.8 mmol/L 3.7 - 5.1 mmol/L [facility] Protein [Mass/Vol] 5.7 g/dL Low 6.3 - 8.0 g/dL [facility] Sodium [Moles/Vol] 140 mmol/L 136 - 144 mmol/L [facility] Urea nitrogen [Mass/Vol] 8 mg/dL 7 - 21 mg/dL [facility] CBC W Auto Differential pane l (Bld)on 02-27-2024 Basophils (Bld) [#/Vol] [facility] Basophils/100 WBC (Bld) 0.3 % [facility] Differential cell count method Nom (Bld) Auto [facility] Eosinophils (Bld) [#/Vol] 0.19 10*3/uL [facility] Eosinophils/100 WBC (Bld) 6.1 % [facility] Erythrocyte distribution width (RBC) [Ratio] 17.9 % High 11.5 - 15.0 % [facility] Hematocrit (Bld) [Volume fraction] 32.5 % Low 36.0 - 46.0 % [facility] Hemoglobin (Bld) [Mass/Vol] 11.0 g/dL Low 11.5 - 15.5 g/dL [facility] Immature granulocytes (Bld) [#/Vol] [facility] Immature granulocytes/100 WBC (Bld) 0.3 % [facility] Interpretation and review of laboratory results Abnormal [facility] Lymphocytes (Bld) [#/Vol] 0.77 10*3/uL Low [facility] Lymphocytes/100 WBC (Bld) 24.5 % [facility] MCH (RBC) [Entitic mass] 38.3 pg High 26.0 - 34.0 pg [facility] MCHC (RBC) [Mass/Vol] 33.8 g/dL 30.5 - 36.0 g/dL [facility] MCV (RBC) [Entitic vol] 113.2 fL High 80.0 - 100.0 fL [facility] Monocytes (Bld) [#/Vol] 0.53 10*3/uL [facility] Monocytes/100 WBC (Bld) 16.9 % [facility] Neutrophils (Bld) [#/Vol] 1.63 10*3/uL [facility] Neutrophils/100 WBC (Bld) 51.9 % [facility] Nucleated RBC (Bld) [#/Vol] [facility] Nucleated RBC/100 WBC (Bld) [Ratio] 0.0 % /100 WBC [facility] Platelet mean volume (Bld) [Entitic vol] 9.3 fL 9.0 - 12.7 fL [facility] Platelets (Bld) [#/Vol] 136 10*3/uL Low [facility] RBC (Bld) [#/Vol] 2.87 10*6/uL Low 3.90 - 5.2 0 m/uL [facility] WBC (Bld) [#/Vol] 3.14 10*3/uL Low [facility] Comprehensive metabolic 2000 panelOrdered By: Sasha Velasco on 02-27-2024 Albumin [Mass/Vol] 4.0 g/dL 3.9 - 4.9 g/dL [facility] ALP [Catalytic activity/Vol] 111 U/L 34 - 123 U/L [facility] ALT [Catalytic activity/Vol] 18 U/L 7 - 38 U/L [facility] Anion gap [Moles/Vol] 10 mmol/L 8 - 15 mmol/L [facility] AST [Catalytic activity/Vol] 37 U/L High 13 - 35 U/L [facility] Bilirubin [Mass/Vol] 0.6 mg/dL 0.2 - 1 .3 mg/dL [facility] Calcium [Mass/Vol] 9.0 mg/dL 8.5 - 10. 2 mg/dL [facility] Chloride [Moles/Vol] 109 mmol/L High 98 - 10 7 mmol/L [facility] CO2 [Moles/Vol] 22 mmol/L 22 - 30 mmol/L [facility] Creatinine [Mass/Vol] 1.26 mg/dL High 0.58 - 0.96 mg/dL [facility] GFR/1.73 sq M.predicted among non-blacks MDRD (S/P/Bld) [Vol rate/Area] 46 mL/min/{1.73_m2} Low - PINF [facility] Comment on above: Estimated Glomerular Filtration Rate [...] 133 mg/dL High 74 - 99 mg/dL [facility] Comment on above: The [place] [employer] (ADA) provides guidance for [...] Standards of Medical Care in Diabetes 2016, [place] [employer]. Diabetes Care. 2016.39(Suppl 1). Interpretation and review of laboratory results Abnormal [facility] Potassium [Moles/Vol] 4.2 mmol/L 3.7 - 5.1 mmol/L [facility] Protein [Mass/Vol] 5.8 g/dL Low 6.3 - 8.0 g/dL [facility] Sodium [Moles/Vol] 141 mmol/L 136 - 144 mmol/L [facility] Urea nitrogen [Mass/Vol] 9 mg/dL 7 - 21 mg/dL [facility] Comprehensive metabolic 2000 panelOrdered By: Sasha Velasco on 02-03-2024 Albumin [Mass/Vol] 3.8 g/dL Low 3.9 - 4.9 g/dL [facility] ALP [Catalytic activity/Vol] 124 U/L High 34 - 123 U/L [facility] ALT [Catalytic activity/Vol] 24 U/L 7 - 38 U/L [facility] Anion gap [Moles/Vol] 11 mmol/L 8 - 15 mmol/L [facility] AST [Catalytic activity/Vol] 41 U/L High 13 - 35 U/L [facility] Bilirubin [Mass/Vol] 0.8 mg/dL 0.2 - 1 .3 mg/dL [facility] Calcium [Mass/Vol] 9.6 mg/dL 8.5 - 10. 2 mg/dL [facility] Chloride [Moles/Vol] 109 mmol/L High 98 - 10 7 mmol/L [facility] CO2 [Moles/Vol] 23 mmol/L 22 - 30 mmol/L [facility] Creatinine [Mass/Vol] 1.52 mg/dL High 0.58 - 0.96 mg/dL [facility] GFR/1.73 sq M.predicted among non-blacks MDRD (S/P/Bld) [Vol rate/Area] 37 mL/min/{1.73_m2} Low - PINF [facility] Comment on above: Estimated Glomerular Filtration Rate [...] 149 mg/dL High 74 - 99 mg/dL [facility] Comment on above: The [place] [employer] (ADA) provides guidance for [...] Standards of Medical Care in Diabetes 2016, [place] [employer]. Diabetes Care. 2016.39(Suppl 1). Interpretation and review of laboratory results Abnormal [facility] Potassium [Moles/Vol] 3.5 mmol/L Low 3.7 - 5.1 mmol/L [facility] Protein [Mass/Vol] 5.8 g/dL Low 6.3 - 8.0 g/dL [facility] Sodium [Moles/Vol] 143 mmol/L 136 - 144 mmol/L [facility] Urea nitrogen [Mass/Vol] 18 mg/dL 7 - 21 mg/dL [facility] CBC W Auto Differential pane l (Bld)on 01-16-2024 Basophils (Bld) [#/Vol] [facility] Basophils/100 WBC (Bld) 0.6 % [facility] Differential cell count method Nom (Bld) Auto [facility] Eosinophils (Bld) [#/Vol] 0.27 10*3/uL [facility] Eosinophils/100 WBC (Bld) 8.1 % [facility] Erythrocyte distribution width (RBC) [Ratio] 20.0 % High 11.5 - 15.0 % [facility] Hematocrit (Bld) [Volume fraction] 33.9 % Low 36.0 - 46.0 % [facility] Hemoglobin (Bld) [Mass/Vol] 11.3 g/dL Low 11.5 - 15.5 g/dL [facility] Immature granulocytes (Bld) [#/Vol] [facility] Immature granulocytes/100 WBC (Bld) 0.6 % [facility] Interpretation and review of laboratory results Abnormal [facility] Lymphocytes (Bld) [#/Vol] 0.79 10*3/uL Low [facility] Lymphocytes/100 WBC (Bld) 23.7 % [facility] MCH (RBC) [Entitic mass] 35.4 pg High 26.0 - 34.0 pg [facility] MCHC (RBC) [Mass/Vol] 33.3 g/dL 30.5 - 36.0 g/dL [facility] MCV (RBC) [Entitic vol] 106.3 fL High 80.0 - 100.0 fL [facility] Monocytes (Bld) [#/Vol] 0.52 10*3/uL NINF [facility] Monocytes/100 WBC (Bld) 15.6 % [facility] Neutrophils (Bld) [#/Vol] 1.71 10*3/uL [facility] Neutrophils/100 WBC (Bld) 51.4 % [facility] Nucleated RBC (Bld) [#/Vol] NINF [facility] Nucleated RBC/100 WBC (Bld) [Ratio] 0.0 % /100 WBC [facility] Platelet mean volume (Bld) [Entitic vol] 9.5 fL 9.0 - 12.7 fL [facility] Platelets (Bld) [#/Vol] 79 10*3/uL Low [facility] Comment on above: No clot detected. RBC (Bld) [#/Vol] 3.19 10*6/uL Low 3.90 - 5.2 0 m/uL [facility] WBC (Bld) [#/Vol] 3.33 10*3/uL Low [facility] Comprehensive metabolic 2000 panelOrdered By: Sasha Velasco on 01-16-2024 Albumin [Mass/Vol] 3.7 g/dL Low 3.9 - 4.9 g/dL [facility] ALP [Catalytic activity/Vol] 97 U/L 34 - 123 U/L [facility] ALT [Catalytic activity/Vol] 17 U/L 7 - 38 U/L [facility] Anion gap [Moles/Vol] 7 mmol/L Low 8 - 15 mmol/L [facility] AST [Catalytic activity/Vol] 32 U/L 13 - 35 U/L [facility] Bilirubin [Mass/Vol] 1.0 mg/dL 0.2 - 1 .3 mg/dL [facility] Calcium [Mass/Vol] 10.3 mg/dL High 8.5 - 10. 2 mg/dL [facility] Chloride [Moles/Vol] 109 mmol/L High 98 - 10 7 mmol/L [facility] CO2 [Moles/Vol] 26 mmol/L 22 - 30 mmol/L [facility] Creatinine [Mass/Vol] 0.96 mg/dL 0.58 - 0.96 mg/dL [facility] GFR/1.73 sq M.predicted among non-blacks MDRD (S/P/Bld) [Vol rate/Area] 64 mL/min/{1.73_m2} - PINF [facility] Comment on above: Estimated Glomerular Filtration Rate [...] 125 mg/dL High 74 - 99 mg/dL [facility] Comment on above: The [place] [employer] (ADA) provides guidance for [...] Standards of Medical Care in Diabetes 2016, [place] [employer]. Diabetes Care. 2016.39(Suppl 1). Interpretation and review of laboratory results Abnormal [facility] Potassium [Moles/Vol] 3.4 mmol/L Low 3.7 - 5.1 mmol/L [facility] Protein [Mass/Vol] 5.3 g/dL Low 6.3 - 8.0 g/dL [facility] Sodium [Moles/Vol] 142 mmol/L 136 - 144 mmol/L [facility] Urea nitrogen [Mass/Vol] 13 mg/dL 7 - 21 mg/dL [facility] ONC Echo Limited w/Contrasto n 01-12-2024 ONC Echo Limited w/Contrast [facility] [address] [place] [address] ONC Echo Limited w/Contrast 01/12/24 0702 MR#: [id number] Acct: [id number] Name: RENATE CHRISTIANSEN Rep #: [id number] : 1955 68 From: Mayco Galeano MD Attending Dr: Dr. Rip Rivers, DO Status: REG CL I Ordering Dr: Rip Rivers DO Date: 01/12/24 Location: [facility] Sex: F C Admitted: Version 2 Reason [...] 1027 Date Mayco Galeano MD CC: Dr. Wliliams Farrell, DO; Dr. Rip Rivers DO Date Dictated: 01/12/24701 Date Transcribed: 01/12/241021 Server: Signed Normal [facility] CBC W Auto Differential pane l (Bld)on 01-04-2024 Basophils (Bld) [#/Vol] [facility] Basophils/100 WBC (Bld) 0.2 % [facility] Differential cell count method Nom (Bld) Auto [facility] Eosinophils (Bld) [#/Vol] 0.45 10*3/uL [facility] Eosinophils/100 WBC (Bld) 10.4 % [facility] Erythrocyte distribution width (RBC) [Ratio] 20.5 % High 11.5 - 15.0 % [facility] Hematocrit (Bld) [Volume fraction] 33.2 % Low 36.0 - 46.0 % [facility] Hemoglobin (Bld) [Mass/Vol] 11.3 g/dL Low 11.5 - 15.5 g/dL [facility] Immature granulocytes (Bld) [#/Vol] [facility] Immature granulocytes/100 WBC (Bld) 0.5 % [facility] Interpretation and review of laboratory results Abnormal [facility] Lymphocytes (Bld) [#/Vol] 0.78 10*3/uL Low [facility] Lymphocytes/100 WBC (Bld) 18.0 % [facility] MCH (RBC) [Entitic mass] 35.2 pg High 26.0 - 34.0 pg [facility] MCHC (RBC) [Mass/Vol] 34.0 g/dL 30.5 - 36.0 g/dL [facility] MCV (RBC) [Entitic vol] 103.4 fL High 80.0 - 100.0 fL [facility] Monocytes (Bld) [#/Vol] 0.55 10*3/uL [facility] Monocytes/100 WBC (Bld) 12.7 % [facility] Neutrophils (Bld) [#/Vol] 2.52 10*3/uL [facility] Neutrophils/100 WBC (Bld) 58.2 % [facility] Nucleated RBC (Bld) [#/Vol] NINF [facility] Nucleated RBC/100 WBC (Bld) [Ratio] 0.0 % /100 WBC [facility] Platelet mean volume (Bld) [Entitic vol] 9.1 fL 9.0 - 12.7 fL [facility] Platelets (Bld) [#/Vol] 149 10*3/uL Low [facility] RBC (Bld) [#/Vol] 3.21 10*6/uL Low 3.90 - 5.2 0 m/uL [facility] WBC (Bld) [#/Vol] 4.33 10*3/uL [facility] CT Chest WO contraston 01-03 IMPRESSION: Stable right middle lobe nodule. No new nodules seen. Interval worsening of patchy nodular opacities in the right upper lobe. Stable bandlike densities in the left upper lobe. No progressive thoracic lymphadenopathy. Hiatal hernia. Sclerotic lesion in the manubrium unchanged. Server: [employer] Transcribe Date/Time: Jan 04 2024 4:32P Dictated by : NE PISANO MD This examination was interpreted and the report reviewed and electronically signed by: NE PISANO MD on Jan 04 2024 4:41PM [facility] DIVISION OF RADIOLOGY * * *Final Report* * * DATE OF EXAM: Jan 04 2024 4:04PM [facility] 0541 - CT CHEST WO IVCON / [...] No additional findings. DIVISION OF RADIOLOGY Provider, [facility] - 01/04/2024 * * *Final Report* * * DATE OF EXAM: Jan 04 2024 4:04PM [facility] 0541 - CT CHEST WO IVCON / [...] hernia. Sclerotic lesion in the manubrium unchanged. Server: PSCB Transcribe Date/Time: Jan 04 2024 4:32P Dictated by : NE PISANO MD This examination was interpreted and the report reviewed and electronically signed by: NE PISANO MD on Jan 04 2024 4:41PM EST [facility] Radiology Study observation (narrative) [facility] CT Chest WO contrastOrdered By: Ccf Provider on 01-04-2024 [facility] Comprehensive metabolic 2000 panelOrdered By: Sasha Velasco on 01-04-2024 Albumin [Mass/Vol] 4.0 g/dL 3.9 - 4.9 g/dL [facility] ALP [Catalytic activity/Vol] 121 U/L 34 - 123 U/L [facility] ALT [Catalytic activity/Vol] 44 U/L High 7 - 38 U/L [facility] Anion gap [Moles/Vol] 9 mmol/L 8 - 15 mmol/L [facility] AST [Catalytic activity/Vol] 47 U/L High 13 - 35 U/L [facility] Bilirubin [Mass/Vol] 1.0 mg/dL 0.2 - 1 .3 mg/dL [facility] Calcium [Mass/Vol] 9.1 mg/dL 8.5 - 10. 2 mg/dL [facility] Chloride [Moles/Vol] 105 mmol/L 98 - 10 7 mmol/L [facility] CO2 [Moles/Vol] 24 mmol/L 22 - 30 mmol/L [facility] Creatinine [Mass/Vol] 1.34 mg/dL High 0.58 - 0.96 mg/dL [facility] GFR/1.73 sq M.predicted among non-blacks MDRD (S/P/Bld) [Vol rate/Area] 43 mL/min/{1.73_m2} Low - PINF [facility] Comment on above: Estimated Glomerular Filtration Rate [...] 138 mg/dL High 74 - 99 mg/dL [facility] Comment on above: The [place] [employer] (ADA) provides guidance for [...] Standards of Medical Care in Diabetes 2016, [place] [employer]. Diabetes Care. 2016.39(Suppl 1). Interpretation and review of laboratory results Abnormal [facility] Potassium [Moles/Vol] 3.7 mmol/L 3.7 - 5.1 mmol/L [facility] Protein [Mass/Vol] 5.7 g/dL Low 6.3 - 8.0 g/dL [facility] Sodium [Moles/Vol] 138 mmol/L 136 - 144 mmol/L [facility] Urea nitrogen [Mass/Vol] 14 mg/dL 7 - 21 mg/dL [facility] ONC Echo Completeon 12-19-19 24 ONC Echo Complete [facility] [address] [place] [address] ONC Echo Complete 12/19/23 0859 MR#: [id number] Acct: [id number] Name: RENATE CHRISTIANSEN Rep #: [id number] : 1955 68 From: Mayco Galeano MD Attending Dr: Dr. Rip Rivers, DO Status: REG CL I Ordering Dr: Rip Rivers DO Date: 12/19/23 Location: [facility] Sex: F C Admitted: Reason For Study: [...] DO Date Dictated: 12/19/2359 Date Transcribed: 12/20/23909 Server: Signed Normal [facility] Laboratory - Chemistry and C hemistry - challengeOrdered By: Sasha Velasco on 12-15-2023 Creatinine [Mass/Vol] 1.60 mg/dL High 0.58 - 0.96 mg/dL [facility] GFR/1.73 sq M.predicted among non-blacks MDRD (S/P/Bld) [Vol rate/Area] 35 mL/min/{1.73_m2} Low - PINF [facility] Comment on above: Estimated Glomerular Filtration Rate [...] Interpretation and review of laboratory results Abnormal [facility] CBC W Auto Differential pane l (Bld)on 12-14-2023 Basophils (Bld) [#/Vol] 0.03 10*3/uL NINF [facility] Basophils/100 WBC (Bld) 0.6 % [facility] Differential cell count method Nom (Bld) Auto [facility] Eosinophils (Bld) [#/Vol] 0.56 10*3/uL High [facility] Eosinophils/100 WBC (Bld) 11.6 % [facility] Erythrocyte distribution width (RBC) [Ratio] 17.0 % High 11.5 - 15.0 % [facility] Hematocrit (Bld) [Volume fraction] 35.8 % Low 36.0 - 46.0 % [facility] Hemoglobin (Bld) [Mass/Vol] 12.0 g/dL 11.5 - 15.5 g/dL [facility] Immature granulocytes (Bld) [#/Vol] [facility] Immature granulocytes/100 WBC (Bld) 0.4 % [facility] Interpretation and review of laboratory results Abnormal [facility] Lymphocytes (Bld) [#/Vol] 0.75 10*3/uL Low [facility] Lymphocytes/100 WBC (Bld) 15.6 % [facility] MCH (RBC) [Entitic mass] 34.3 pg High 26.0 - 34.0 pg [facility] MCHC (RBC) [Mass/Vol] 33.5 g/dL 30.5 - 36.0 g/dL [facility] MCV (RBC) [Entitic vol] 102.3 fL High 80.0 - 100.0 fL [facility] Monocytes (Bld) [#/Vol] 0.57 10*3/uL [facility] Monocytes/100 WBC (Bld) 11.8 % [facility] Neutrophils (Bld) [#/Vol] 2.89 10*3/uL [facility] Neutrophils/100 WBC (Bld) 60.0 % [facility] Nucleated RBC (Bld) [#/Vol] [facility] Nucleated RBC/100 WBC (Bld) [Ratio] 0.0 % /100 WBC [facility] Platelet mean volume (Bld) [Entitic vol] 9.3 fL 9.0 - 12.7 fL [facility] Platelets (Bld) [#/Vol] 158 10*3/uL [facility] RBC (Bld) [#/Vol] 3.50 10*6/uL Low 3.90 - 5.2 0 m/uL [facility] WBC (Bld) [#/Vol] 4.82 10*3/uL [facility] Comprehensive metabolic 2000 panelOrdered By: Evette Landry on 12-14-2023 Albumin [Mass/Vol] 3.8 g/dL Low 3.9 - 4.9 g/dL [facility] ALP [Catalytic activity/Vol] 130 U/L High 34 - 123 U/L [facility] ALT [Catalytic activity/Vol] 24 U/L 7 - 38 U/L [facility] Anion gap [Moles/Vol] 8 mmol/L 8 - 15 mmol/L [facility] AST [Catalytic activity/Vol] 34 U/L 13 - 35 U/L [facility] Bilirubin [Mass/Vol] 0.7 mg/dL 0.2 - 1 .3 mg/dL [facility] Calcium [Mass/Vol] 9.0 mg/dL 8.5 - 10. 2 mg/dL [facility] Chloride [Moles/Vol] 108 mmol/L High 98 - 10 7 mmol/L [facility] CO2 [Moles/Vol] 25 mmol/L 22 - 30 mmol/L [facility] Creatinine [Mass/Vol] 1.77 mg/dL High 0.58 - 0.96 mg/dL [facility] GFR/1.73 sq M.predicted among non-blacks MDRD (S/P/Bld) [Vol rate/Area] 31 mL/min/{1.73_m2} Low - PINF [facility] Comment on above: Estimated Glomerular Filtration Rate [...] 112 mg/dL High 74 - 99 mg/dL [facility] Comment on above: The [place] [employer] (ADA) provides guidance for [...] Standards of Medical Care in Diabetes 2016, [place] [employer]. Diabetes Care. 2016.39(Suppl 1). Interpretation and review of laboratory results Abnormal [facility] Potassium [Moles/Vol] 3.9 mmol/L 3.7 - 5.1 mmol/L [facility] Protein [Mass/Vol] 5.6 g/dL Low 6.3 - 8.0 g/dL [facility] Sodium [Moles/Vol] 141 mmol/L 136 - 144 mmol/L [facility] Urea nitrogen [Mass/Vol] 17 mg/dL 7 - 21 mg/dL [facility] CBC W Auto Differential pane l (Bld)on 11-23-2023 Basophils (Bld) [#/Vol] [facility] Basophils/100 WBC (Bld) 0.3 % [facility] Differential cell count method Nom (Bld) Auto [facility] Eosinophils (Bld) [#/Vol] 0.35 10*3/uL [facility] Eosinophils/100 WBC (Bld) 10.0 % [facility] Erythrocyte distribution width (RBC) [Ratio] 13.6 % 11.5 - 15.0 % [facility] Hematocrit (Bld) [Volume fraction] 36.2 % 36.0 - 46.0 % [facility] Hemoglobin (Bld) [Mass/Vol] 12.2 g/dL 11.5 - 15.5 g/dL [facility] Immature granulocytes (Bld) [#/Vol] [facility] Immature granulocytes/100 WBC (Bld) 0.3 % [facility] Interpretation and review of laboratory results Abnormal [facility] Lymphocytes (Bld) [#/Vol] 0.86 10*3/uL Low [facility] Lymphocytes/100 WBC (Bld) 24.5 % [facility] MCH (RBC) [Entitic mass] 34.4 pg High 26.0 - 34.0 pg [facility] MCHC (RBC) [Mass/Vol] 33.7 g/dL 30.5 - 36.0 g/dL [facility] MCV (RBC) [Entitic vol] 102.0 fL High 80.0 - 100.0 fL [facility] Monocytes (Bld) [#/Vol] 0.36 10*3/uL [facility] Monocytes/100 WBC (Bld) 10.3 % [facility] Neutrophils (Bld) [#/Vol] 1.92 10*3/uL [facility] Neutrophils/100 WBC (Bld) 54.6 % [facility] Nucleated RBC (Bld) [#/Vol] NINF [facility] Nucleated RBC/100 WBC (Bld) [Ratio] 0.0 % /100 WBC [facility] Platelet mean volume (Bld) [Entitic vol] 9.2 fL 9.0 - 12.7 fL [facility] Platelets (Bld) [#/Vol] 133 10*3/uL Low [facility] RBC (Bld) [#/Vol] 3.55 10*6/uL Low 3.90 - 5.2 0 m/uL [facility] WBC (Bld) [#/Vol] 3.51 10*3/uL Low [facility] Comprehensive metabolic 2000 panelOrdered By: Sasha Velasco on 11-23-2023 Albumin [Mass/Vol] 3.6 g/dL Low 3.9 - 4.9 g/dL [facility] ALP [Catalytic activity/Vol] 148 U/L High 34 - 123 U/L [facility] ALT [Catalytic activity/Vol] 15 U/L 7 - 38 U/L [facility] Anion gap [Moles/Vol] 9 mmol/L 8 - 15 mmol/L [facility] AST [Catalytic activity/Vol] 30 U/L 13 - 35 U/L [facility] Bilirubin [Mass/Vol] 0.3 mg/dL 0.2 - 1 .3 mg/dL [facility] Calcium [Mass/Vol] 8.7 mg/dL 8.5 - 10. 2 mg/dL [facility] Chloride [Moles/Vol] 108 mmol/L High 98 - 10 7 mmol/L [facility] CO2 [Moles/Vol] 25 mmol/L 22 - 30 mmol/L [facility] Creatinine [Mass/Vol] 1.12 mg/dL High 0.58 - 0.96 mg/dL [facility] GFR/1.73 sq M.predicted among non-blacks MDRD (S/P/Bld) [Vol rate/Area] 53 mL/min/{1.73_m2} Low - PINF [facility] Comment on above: Estimated Glomerular Filtration Rate [...] 131 mg/dL High 74 - 99 mg/dL [facility] Comment on above: The [place] [employer] (ADA) provides guidance for [...] Standards of Medical Care in Diabetes 2016, [place] [employer]. Diabetes Care. 2016.39(Suppl 1). Interpretation and review of laboratory results Abnormal [facility] Potassium [Moles/Vol] 4.1 mmol/L 3.7 - 5.1 mmol/L [facility] Protein [Mass/Vol] 5.7 g/dL Low 6.3 - 8.0 g/dL [facility] Sodium [Moles/Vol] 142 mmol/L 136 - 144 mmol/L [facility] Urea nitrogen [Mass/Vol] 10 mg/dL 7 - 21 mg/dL [facility] CBC W Auto Differential pane l (Bld)on 11-11-2023 Basophils (Bld) [#/Vol] NINF [facility] Basophils/100 WBC (Bld) 0.3 % [facility] Differential cell count method Nom (Bld) Auto [facility] Eosinophils (Bld) [#/Vol] 0.24 10*3/uL NINF [facility] Eosinophils/100 WBC (Bld) 6.7 % [facility] Erythrocyte distribution width (RBC) [Ratio] 13.0 % 11.5 - 15.0 % [facility] Hematocrit (Bld) [Volume fraction] 40.5 % 36.0 - 46.0 % [facility] Hemoglobin (Bld) [Mass/Vol] 13.5 g/dL 11.5 - 15.5 g/dL [facility] Immature granulocytes (Bld) [#/Vol] [facility] Immature granulocytes/100 WBC (Bld) 0.0 % [facility] Interpretation and review of laboratory results Abnormal [facility] Lymphocytes (Bld) [#/Vol] 0.87 10*3/uL Low [facility] Lymphocytes/100 WBC (Bld) 24.4 % [facility] MCH (RBC) [Entitic mass] 33.8 pg 26.0 - 34.0 pg [facility] MCHC (RBC) [Mass/Vol] 33.3 g/dL 30.5 - 36.0 g/dL [facility] MCV (RBC) [Entitic vol] 101.3 fL High 80.0 - 100.0 fL [facility] Monocytes (Bld) [#/Vol] 0.38 10*3/uL [facility] Monocytes/100 WBC (Bld) 10.6 % [facility] Neutrophils (Bld) [#/Vol] 2.07 10*3/uL [facility] Neutrophils/100 WBC (Bld) 58.0 % [facility] Nucleated RBC (Bld) [#/Vol] [facility] Nucleated RBC/100 WBC (Bld) [Ratio] 0.0 % /100 WBC [facility] Platelet mean volume (Bld) [Entitic vol] 10.1 fL 9.0 - 12.7 fL [facility] Platelets (Bld) [#/Vol] 139 10*3/uL Low [facility] RBC (Bld) [#/Vol] 4.00 10*6/uL 3.90 - 5.2 0 m/uL [facility] WBC (Bld) [#/Vol] 3.57 10*3/uL Low [facility] CBC W Auto Differential pane l (Bld)on 11-02-2023 Basophils (Bld) [#/Vol] [facility] Basophils/100 WBC (Bld) 0.6 % [facility] Differential cell count method Nom (Bld) Auto [facility] Eosinophils (Bld) [#/Vol] 0.20 10*3/uL [facility] Eosinophils/100 WBC (Bld) 5.9 % [facility] Erythrocyte distribution width (RBC) [Ratio] 13.2 % 11.5 - 15.0 % [facility] Hematocrit (Bld) [Volume fraction] 41.6 % 36.0 - 46.0 % [facility] Hemoglobin (Bld) [Mass/Vol] 13.7 g/dL 11.5 - 15.5 g/dL [facility] Immature granulocytes (Bld) [#/Vol] NINF [facility] Immature granulocytes/100 WBC (Bld) 0.0 % [facility] Interpretation and review of laboratory results Abnormal [facility] Lymphocytes (Bld) [#/Vol] 0.75 10*3/uL Low [facility] Lymphocytes/100 WBC (Bld) 22.0 % [facility] MCH (RBC) [Entitic mass] 33.7 pg 26.0 - 34.0 pg [facility] MCHC (RBC) [Mass/Vol] 32.9 g/dL 30.5 - 36.0 g/dL [facility] MCV (RBC) [Entitic vol] 102.5 fL High 80.0 - 100.0 fL [facility] Monocytes (Bld) [#/Vol] 0.39 10*3/uL NINF [facility] Monocytes/100 WBC (Bld) 11.4 % [facility] Neutrophils (Bld) [#/Vol] 2.05 10*3/uL [facility] Neutrophils/100 WBC (Bld) 60.1 % [facility] Nucleated RBC (Bld) [#/Vol] NINF [facility] Nucleated RBC/100 WBC (Bld) [Ratio] 0.0 % /100 WBC [facility] Platelet mean volume (Bld) [Entitic vol] 10.4 fL 9.0 - 12.7 fL [facility] Platelets (Bld) [#/Vol] 106 10*3/uL Low [facility] RBC (Bld) [#/Vol] 4.06 10*6/uL 3.90 - 5.2 0 m/uL [facility] WBC (Bld) [#/Vol] 3.41 10*3/uL Low [facility] Comprehensive metabolic 2000 panelOrdered By: Sasha Velasco on 11-02-2023 Albumin [Mass/Vol] 3.7 g/dL Low 3.9 - 4.9 g/dL [facility] ALP [Catalytic activity/Vol] 179 U/L High 34 - 123 U/L [facility] ALT [Catalytic activity/Vol] 23 U/L 7 - 38 U/L [facility] Anion gap [Moles/Vol] 7 mmol/L Low 9 - 18 mmol/L [facility] AST [Catalytic activity/Vol] 40 U/L High 13 - 35 U/L [facility] Bilirubin [Mass/Vol] 0.5 mg/dL 0.2 - 1 .3 mg/dL [facility] Calcium [Mass/Vol] 9.4 mg/dL 8.5 - 10. 2 mg/dL [facility] Chloride [Moles/Vol] 108 mmol/L High 97 - 10 5 mmol/L [facility] CO2 [Moles/Vol] 27 mmol/L 22 - 30 mmol/L [facility] Creatinine [Mass/Vol] 0.92 mg/dL 0.58 - 0.96 mg/dL [facility] GFR/1.73 sq M.predicted among non-blacks MDRD (S/P/Bld) [Vol rate/Area] 67 mL/min/{1.73_m2} - PINF [facility] Comment on above: Estimated Glomerular Filtration Rate [...] 130 mg/dL High 74 - 99 mg/dL [facility] Comment on above: The [place] [employer] (ADA) provides guidance for [...] Standards of Medical Care in Diabetes 2016, [place] [employer]. Diabetes Care. 2016.39(Suppl 1). Interpretation and review of laboratory results Abnormal [facility] Potassium [Moles/Vol] 3.5 mmol/L Low 3.7 - 5.1 mmol/L [facility] Protein [Mass/Vol] 5.9 g/dL Low 6.3 - 8.0 g/dL [facility] Sodium [Moles/Vol] 142 mmol/L 136 - 144 mmol/L [facility] Urea nitrogen [Mass/Vol] 15 mg/dL 7 - 21 mg/dL [facility] CBC W Auto Differential pane l (Bld)on 10-11-2023 Basophils (Bld) [#/Vol] [facility] Basophils/100 WBC (Bld) 0.4 % [facility] Differential cell count method Nom (Bld) Auto [facility] Eosinophils (Bld) [#/Vol] 0.14 10*3/uL [facility] Eosinophils/100 WBC (Bld) 4.9 % [facility] Erythrocyte distribution width (RBC) [Ratio] 13.5 % 11.5 - 15.0 % [facility] Hematocrit (Bld) [Volume fraction] 39.7 % 36.0 - 46.0 % [facility] Hemoglobin (Bld) [Mass/Vol] 13.1 g/dL 11.5 - 15.5 g/dL [facility] Immature granulocytes (Bld) [#/Vol] [facility] Immature granulocytes/100 WBC (Bld) 0.4 % [facility] Interpretation and review of laboratory results Abnormal [facility] Lymphocytes (Bld) [#/Vol] 0.45 10*3/uL Low [facility] Lymphocytes/100 WBC (Bld) 15.8 % [facility] MCH (RBC) [Entitic mass] 34.0 pg 26.0 - 34.0 pg [facility] MCHC (RBC) [Mass/Vol] 33.0 g/dL 30.5 - 36.0 g/dL [facility] MCV (RBC) [Entitic vol] 103.1 fL High 80.0 - 100.0 fL [facility] Monocytes (Bld) [#/Vol] 0.38 10*3/uL [facility] Monocytes/100 WBC (Bld) 13.3 % [facility] Neutrophils (Bld) [#/Vol] 1.86 10*3/uL [facility] Neutrophils/100 WBC (Bld) 65.2 % [facility] Nucleated RBC (Bld) [#/Vol] NINF [facility] Nucleated RBC/100 WBC (Bld) [Ratio] 0.0 % /100 WBC [facility] Platelet mean volume (Bld) [Entitic vol] 10.2 fL 9.0 - 12.7 fL [facility] Platelets (Bld) [#/Vol] 79 10*3/uL Low [facility] Comment on above: No clot detected. RBC (Bld) [#/Vol] 3.85 10*6/uL Low 3.90 - 5.2 0 m/uL [facility] WBC (Bld) [#/Vol] 2.85 10*3/uL Low [facility] Comprehensive metabolic 2000 panelOrdered By: Sasha Velasco on 10-11-2023 Albumin [Mass/Vol] 3.5 g/dL Low 3.9 - 4.9 g/dL [facility] ALP [Catalytic activity/Vol] 167 U/L High 34 - 123 U/L [facility] ALT [Catalytic activity/Vol] 25 U/L 7 - 38 U/L [facility] Anion gap [Moles/Vol] 4 mmol/L Low 9 - 18 mmol/L [facility] AST [Catalytic activity/Vol] 42 U/L High 13 - 35 U/L [facility] Bilirubin [Mass/Vol] 0.5 mg/dL 0.2 - 1 .3 mg/dL [facility] Calcium [Mass/Vol] 9.8 mg/dL 8.5 - 10. 2 mg/dL [facility] Chloride [Moles/Vol] 104 mmol/L 97 - 10 5 mmol/L [facility] CO2 [Moles/Vol] 31 mmol/L High 22 - 30 mmol/L [facility] Creatinine [Mass/Vol] 1.08 mg/dL High 0.58 - 0.96 mg/dL [facility] GFR/1.73 sq M.predicted among non-blacks MDRD (S/P/Bld) [Vol rate/Area] 55 mL/min/{1.73_m2} Low - PINF [facility] Comment on above: Estimated Glomerular Filtration Rate [...] 130 mg/dL High 74 - 99 mg/dL [facility] Comment on above: The [place] [employer] (ADA) provides guidance for [...] Standards of Medical Care in Diabetes 2016, [place] [employer]. Diabetes Care. 2016.39(Suppl 1). Interpretation and review of laboratory results Abnormal [facility] Potassium [Moles/Vol] 3.6 mmol/L Low 3.7 - 5.1 mmol/L [facility] Protein [Mass/Vol] 5.7 g/dL Low 6.3 - 8.0 g/dL [facility] Sodium [Moles/Vol] 139 mmol/L 136 - 144 mmol/L [facility] Urea nitrogen [Mass/Vol] 13 mg/dL 7 - 21 mg/dL [facility] CBC W Auto Differential pane l (Bld)on 09-21-2023 Basophils (Bld) [#/Vol] 0.04 10*3/uL <0.11 k/uL [facility] Basophils/100 WBC (Bld) 0.9 % [facility] Differential cell count method Nom (Bld) Auto [facility] Eosinophils (Bld) [#/Vol] 0.35 10*3/uL <0.46 k/uL [facility] Eosinophils/100 WBC (Bld) 7.8 % [facility] Erythrocyte distribution width (RBC) [Ratio] 14.5 % 11.5 - 15.0 % [facility] Hematocrit (Bld) [Volume fraction] 40.8 % 36.0 - 46.0 % [facility] Hemoglobin (Bld) [Mass/Vol] 13.7 g/dL 11.5 - 15.5 g/dL [facility] Immature granulocytes (Bld) [#/Vol] <0.10 k/uL [facility] Immature granulocytes/100 WBC (Bld) 0.2 % [facility] Lymphocytes (Bld) [#/Vol] 1.15 10*3/uL 1.00 - 4.00 k/uL [facility] Lymphocytes/100 WBC (Bld) 25.7 % [facility] MCH (RBC) [Entitic mass] 34.9 pg High 26.0 - 34.0 pg [facility] MCHC (RBC) [Mass/Vol] 33.6 g/dL 30.5 - 36.0 g/dL [facility] MCV (RBC) [Entitic vol] 104.1 fL High 80.0 - 100.0 fL [facility] Monocytes (Bld) [#/Vol] 0.52 10*3/uL <0.87 k/uL [facility] Monocytes/100 WBC (Bld) 11.6 % [facility] Neutrophils (Bld) [#/Vol] 2.41 10*3/uL 1.45 - 7.50 k/uL [facility] Neutrophils/100 WBC (Bld) 53.8 % [facility] Nucleated RBC (Bld) [#/Vol] <0.01 k/uL [facility] Nucleated RBC/100 WBC (Bld) [Ratio] 0.0 /100 WBC [facility] Platelet mean volume (Bld) [Entitic vol] 9.8 fL 9.0 - 12.7 fL [facility] Platelets (Bld) [#/Vol] 156 10*3/uL 150 - 400 k/uL [facility] RBC (Bld) [#/Vol] 3.92 10*6/uL 3.90 - 5.2 0 m/uL [facility] WBC (Bld) [#/Vol] 4.48 10*3/uL 3.70 - 11. 00 k/uL [facility] Comprehensive metabolic 2000 panelon 09-21-2023 Albumin [Mass/Vol] 3.9 g/dL 3.9 - 4.9 g/dL [facility] ALP [Catalytic activity/Vol] 169 U/L High 34 - 123 U/L [facility] ALT [Catalytic activity/Vol] 18 U/L 7 - 38 U/L [facility] Anion gap [Moles/Vol] 5 mmol/L Low 9 - 18 mmol/L [facility] AST [Catalytic activity/Vol] 34 U/L 13 - 35 U/L [facility] Bilirubin [Mass/Vol] 0.6 mg/dL 0.2 - 1 .3 mg/dL [facility] Calcium [Mass/Vol] 10.5 mg/dL High 8.5 - 10. 2 mg/dL [facility] Chloride [Moles/Vol] 103 mmol/L 97 - 10 5 mmol/L [facility] CO2 [Moles/Vol] 31 mmol/L High 22 - 30 mmol/L [facility] Creatinine [Mass/Vol] 0.96 mg/dL 0.58 - 0.96 mg/dL [facility] Estimated Glomerular Filtration Rate 64 mL/min/1.73m >=60 mL/min/1.73m [facility] Glucose [Mass/Vol] 112 mg/dL High 74 - 99 mg/dL [facility] Potassium [Moles/Vol] 3.9 mmol/L 3.7 - 5.1 mmol/L [facility] Protein [Mass/Vol] 6.1 g/dL Low 6.3 - 8.0 g/dL [facility] Sodium [Moles/Vol] 139 mmol/L 136 - 144 mmol/L [facility] Urea nitrogen [Mass/Vol] 11 mg/dL 7 - 21 mg/dL [facility] CBC W Auto Differential pane l (Bld)on 08-30-2023 Basophils (Bld) [#/Vol] 0.03 10*3/uL <0.11 k/uL [facility] Basophils/100 WBC (Bld) 1.0 % [facility] Differential cell count method Nom (Bld) Auto [facility] Eosinophils (Bld) [#/Vol] 0.23 10*3/uL <0.46 k/uL [facility] Eosinophils/100 WBC (Bld) 7.8 % [facility] Erythrocyte distribution width (RBC) [Ratio] 15.0 % 11.5 - 15.0 % [facility] Hematocrit (Bld) [Volume fraction] 35.6 % Low 36.0 - 46.0 % [facility] Hemoglobin (Bld) [Mass/Vol] 12.2 g/dL 11.5 - 15.5 g/dL [facility] Immature granulocytes (Bld) [#/Vol] <0.10 k/uL [facility] Immature granulocytes/100 WBC (Bld) 0.0 % [facility] Lymphocytes (Bld) [#/Vol] 1.02 10*3/uL 1.00 - 4.00 k/uL [facility] Lymphocytes/100 WBC (Bld) 34.6 % [facility] MCH (RBC) [Entitic mass] 36.0 pg High 26.0 - 34.0 pg [facility] MCHC (RBC) [Mass/Vol] 34.3 g/dL 30.5 - 36.0 g/dL [facility] MCV (RBC) [Entitic vol] 105.0 fL High 80.0 - 100.0 fL [facility] Monocytes (Bld) [#/Vol] 0.42 10*3/uL <0.87 k/uL [facility] Monocytes/100 WBC (Bld) 14.2 % [facility] Neutrophils (Bld) [#/Vol] 1.25 10*3/uL Low 1.45 - 7.50 k/uL [facility] Neutrophils/100 WBC (Bld) 42.4 % [facility] Nucleated RBC (Bld) [#/Vol] <0.01 k/uL [facility] Nucleated RBC/100 WBC (Bld) [Ratio] 0.0 /100 WBC [facility] Platelet mean volume (Bld) [Entitic vol] 9.6 fL 9.0 - 12.7 fL [facility] Platelets (Bld) [#/Vol] 169 10*3/uL 150 - 400 k/uL [facility] RBC (Bld) [#/Vol] 3.39 10*6/uL Low 3.90 - 5.2 0 m/uL [facility] WBC (Bld) [#/Vol] 2.95 10*3/uL Low 3.70 - 11. 00 k/uL [facility] Comprehensive metabolic 2000 panelon 08-30-2023 Albumin [Mass/Vol] 3.5 g/dL Low 3.9 - 4.9 g/dL [facility] ALP [Catalytic activity/Vol] 156 U/L High 34 - 123 U/L [facility] ALT [Catalytic activity/Vol] 15 U/L 7 - 38 U/L [facility] Anion gap [Moles/Vol] 7 mmol/L Low 9 - 18 mmol/L [facility] AST [Catalytic activity/Vol] 31 U/L 13 - 35 U/L [facility] Bilirubin [Mass/Vol] 0.5 mg/dL 0.2 - 1 .3 mg/dL [facility] Calcium [Mass/Vol] 10.0 mg/dL 8.5 - 10. 2 mg/dL [facility] Chloride [Moles/Vol] 108 mmol/L High 97 - 10 5 mmol/L [facility] CO2 [Moles/Vol] 25 mmol/L 22 - 30 mmol/L [facility] Creatinine [Mass/Vol] 0.96 mg/dL 0.58 - 0.96 mg/dL [facility] Estimated Glomerular Filtration Rate 64 mL/min/1.73m >=60 mL/min/1.73m [facility] Glucose [Mass/Vol] 132 mg/dL High 74 - 99 mg/dL [facility] Potassium [Moles/Vol] 3.7 mmol/L 3.7 - 5.1 mmol/L [facility] Protein [Mass/Vol] 5.7 g/dL Low 6.3 - 8.0 g/dL [facility] Sodium [Moles/Vol] 140 mmol/L 136 - 144 mmol/L [facility] Urea nitrogen [Mass/Vol] 12 mg/dL 7 - 21 mg/dL [facility] PET/CT SKULL-THIGH SUBQon 08-22-2023 HI PET/CT SKULL-THIGH SUBQ * * *Final Report* * * DATE OF EXAM: Aug 22 2023 10:41AM [facility] 0063 - HI PET/CT SKULL-THIGH SUBQ / PROCEDURE REASON: multiple [...] * Radiopharmaceutical Dose: 13.6 mCi * Radiopharmaceutical: [id number] (FDG) COMPARISON: 08/25/2021 CORRELATION: CT chest 07/26/2023, CT abdomen and pelvis 01/26/2023 RESULT: REFERENCES: SUV reference values: * Blood pool (descending aorta) activity: SUVmax 2.4 * Background liver activity: SUVmax 3.2; SUVmean 2.4 Curtain Cleaner (topogram) images: Unremarkable. Notes and limitations: * [...] MUSCULOSKELETAL: * No FDG avid neoplastic process. Server: [id number] Transcribe Date/Time: Aug 23 2023 9:53A Dictated by : KARON CANALES MD This examination was interpreted and the report reviewed and electronically signed by: KARON CANALES MD on Aug 23 2023 10:15AM EST [id number] Normal [facility] Absolute lymphocyte countOrd ered By: Eze Mack on 08-16-2023 Lymphocytes Auto (Unsp spec) [#/Vol] 0.82 10*3/uL 0.83-4.51 [facility] Automated lymphocyte count a s percentage of total leukocytesOrdered By: Eze Mack on 08-16-2023 Lymphocytes/100 WBC Auto (Unsp spec) 21.9 % 19-41 [facility] Basophil percentageOrdered B y: Eze Mack on 08-16-2023 Basophils/100 WBC (Bld) 0.3 % 0-1 [facility] Bilirubin [Mass/Vol] 0.60 mg/dL 0.20-1.00 [facility] Comment on above: For patients on eltr ombopag therapy, use of Dimension [place] TBIL is not recommended. Chloride [Moles/Vol] 110 mmol/L 98-107 [facility] Eosinophils/100 WBC (Bld) 4.5 % 0-5 [facility] Glucose [Mass/Vol] 104 mg/dL 74-106 [facility] Comment on above: Fasting Glucose resu lt from 100 to 125 mg/dL suggests IMPAIRED HOMEOSTASIS per A.D.A. criteria. Hemoglobin (Bld) [Mass/Vol] 12.0 g/dL 12.0-15.0 [facility] Monocytes/100 WBC (Bld) 7.5 % 0-10 [facility] Neutrophils (Bld) [#/Vol] 2.5 10*3/uL 2.0-7.7 [facility] Neutrophils/100 WBC (Bld) 65.5 % 47-70 [facility] Potassium [Moles/Vol] 3.7 mmol/L 3.5-5.1 [facility] Protein [Mass/Vol] 5.6 g/dL 6.4-8.2 [facility] Sodium [Moles/Vol] 143 mmol/L 136-145 [facility] WBC (Bld) [#/Vol] 3.8 10*3/uL 4.4-11.0 [facility] Determination of erythrocyte mean corpuscular volume (MCV)Ordered By: Eze Mack on 08-16-2023 MCV (RBC) [Entitic vol] 108.0 fL 81-99 [facility] Erythrocyte distribution wid th ratioOrdered By: Eze Mack on 08-16-2023 Erythrocyte distribution width (RBC) [Ratio] 14.5 % 11.6-14.6 [facility] Erythrocyte distribution wid th standard deviationOrdered By: Eze Mack on 08-16-2023 Erythrocyte distribution width (RBC) [Entitic vol] 57.0 fL 35.1-43.9 [facility] Hematocrit Auto (Bld) [Volum e fraction]Ordered By: Ezeglenn Mack on 08-16-2023 Hematocrit (Bld) [Volume fraction] 36.6 % 37-47 [facility] Immature granulocytes/100 WB C Auto (Bld)Ordered By: Eze Mack on 08-16-2023 Immature granulocytes/100 WBC (Bld) 0.300 % 0.0-0.9 [facility] Comment on above: IG% - Immature Granu locytes (promyelocytes, myelocytes and metamyelocytes) > 1% indicates that a LEFT SHIFT is Present. Laboratory - Chemistry and C hemistry - challengeOrdered By: Eze Mack on 08-16-2023 Albumin/Globulin [Mass ratio] 1.1 {ratio} 0.9-2.4 [facility] ALP [Catalytic activity/Vol] 133 U/L 45-117 [facility] ALT [Catalytic activity/Vol] 25 U/L 13-56 [facility] CO2 [Moles/Vol] 29.0 mmol/L 21.0-32.0 [facility] Globulin (S) [Mass/Vol] 2.7 g/dL 2.2-4.2 [facility] Urea nitrogen/Creatinine [Mass ratio] 16.7 mg/mg 10-20 [facility] Laboratory - Hematology and Cell countsOrdered By: Eze Mack on 08-16-2023 MCH (RBC) [Entitic mass] 35.4 pg 27.0-32.0 [facility] MCHC (RBC) [Mass/Vol] 32.8 g/dL 32-36 [facility] Nucleated RBC/100 WBC (Bld) [Ratio] 0 % 0-5 [facility] Platelet mean volume (Bld) [Entitic vol] 9.9 fL 6.2-12.0 [facility] Platelets (Bld) [#/Vol] 140 10*3/uL 150-450 [facility] No Panel InformationOrdered By: Eze Mack on 08-16-2023 Estimated Creatinine Clearance Calc 54.98 ml/min [facility] Estimated GFR (MDRD) Amer 74 mL/min >60 [facility] Comment on above: GFR Calc Estimated GFR (MDRD) Non-Af Amer 61 mL/min >60 [facility] Comment on above: Non- GFR Calc RBC Auto (Bld) [#/Vol]Ordere d By: Eze Mack on 08-16-2023 RBC (Bld) [#/Vol] 3.39 10*6/uL 4.2-5.4 [facility] Serum or plasma calcium michelle urement (mass/volume)Ordered By: Eze Mack on 08-16-2023 Calcium [Mass/Vol] 9.0 mg/dL 8.5-10.1 [facility] Serum or plasma creatinine m easurement (mass/volume)Ordered By: Eze Mack on 08-16-2023 Creatinine [Mass/Vol] 0.96 mg/dL 0.55-1.02 [facility] Comment on above: The validity of the calculated GFR & GFRAA in patients over 70 years has not been determined. Clinical correlation is essential. Serum or plasma urea nitroge n measurement (mass/volume)Ordered By: Eze Mack on 08-16-2023 Urea nitrogen [Mass/Vol] 16 mg/dL 7-18 [facility] Thin prep Papanicolaou smear with manual screeningOrdered By: Eze Mack on 08-16-2023 Thin prep Papanicolaou smear with manual screening 2.9 g/dL 3.2-5.0 [facility] Thin prep Papanicolaou smear with manual screening 31 U/L 15-37 [facility] Thin prep Papanicolaou smear with manual screening 4 5-15 [facility] CBC W Auto Differential pane l (Bld)on 08-10-2023 Basophils (Bld) [#/Vol] <0.11 k/uL [facility] Basophils/100 WBC (Bld) 0.6 % [facility] Differential cell count method Nom (Bld) Auto [facility] Eosinophils (Bld) [#/Vol] 0.23 10*3/uL <0.46 k/uL [facility] Eosinophils/100 WBC (Bld) 7.3 % [facility] Erythrocyte distribution width (RBC) [Ratio] 14.7 % 11.5 - 15.0 % [facility] Hematocrit (Bld) [Volume fraction] 36.1 % 36.0 - 46.0 % [facility] Hemoglobin (Bld) [Mass/Vol] 12.2 g/dL 11.5 - 15.5 g/dL [facility] Immature granulocytes (Bld) [#/Vol] <0.10 k/uL [facility] Immature granulocytes/100 WBC (Bld) 0.0 % [facility] Lymphocytes (Bld) [#/Vol] 0.88 10*3/uL Low 1.00 - 4.00 k/uL [facility] Lymphocytes/100 WBC (Bld) 28.1 % [facility] MCH (RBC) [Entitic mass] 36.0 pg High 26.0 - 34.0 pg [facility] MCHC (RBC) [Mass/Vol] 33.8 g/dL 30.5 - 36.0 g/dL [facility] MCV (RBC) [Entitic vol] 106.5 fL High 80.0 - 100.0 fL [facility] Monocytes (Bld) [#/Vol] 0.45 10*3/uL <0.87 k/uL [facility] Monocytes/100 WBC (Bld) 14.4 % [facility] Neutrophils (Bld) [#/Vol] 1.55 10*3/uL 1.45 - 7.50 k/uL [facility] Neutrophils/100 WBC (Bld) 49.6 % [facility] Nucleated RBC (Bld) [#/Vol] <0.01 k/uL [facility] Nucleated RBC/100 WBC (Bld) [Ratio] 0.0 /100 WBC [facility] Platelet mean volume (Bld) [Entitic vol] 9.5 fL 9.0 - 12.7 fL [facility] Platelets (Bld) [#/Vol] 155 10*3/uL 150 - 400 k/uL [facility] RBC (Bld) [#/Vol] 3.39 10*6/uL Low 3.90 - 5.2 0 m/uL [facility] WBC (Bld) [#/Vol] 3.13 10*3/uL Low 3.70 - 11. 00 k/uL [facility] Comprehensive metabolic 2000 panelon 08-10-2023 Albumin [Mass/Vol] 3.6 g/dL Low 3.9 - 4.9 g/dL [facility] ALP [Catalytic activity/Vol] 154 U/L High 34 - 123 U/L [facility] ALT [Catalytic activity/Vol] 18 U/L 7 - 38 U/L [facility] Anion gap [Moles/Vol] 6 mmol/L Low 9 - 18 mmol/L [facility] AST [Catalytic activity/Vol] 33 U/L 13 - 35 U/L [facility] Bilirubin [Mass/Vol] 0.4 mg/dL 0.2 - 1 .3 mg/dL [facility] Calcium [Mass/Vol] 9.9 mg/dL 8.5 - 10. 2 mg/dL [facility] Chloride [Moles/Vol] 107 mmol/L High 97 - 10 5 mmol/L [facility] CO2 [Moles/Vol] 28 mmol/L 22 - 30 mmol/L [facility] Creatinine [Mass/Vol] 0.97 mg/dL High 0.58 - 0.96 mg/dL [facility] Estimated Glomerular Filtration Rate 63 mL/min/1.73m >=60 mL/min/1.73m [facility] Glucose [Mass/Vol] 109 mg/dL High 74 - 99 mg/dL [facility] Potassium [Moles/Vol] 4.0 mmol/L 3.7 - 5.1 mmol/L [facility] Protein [Mass/Vol] 5.8 g/dL Low 6.3 - 8.0 g/dL [facility] Sodium [Moles/Vol] 141 mmol/L 136 - 144 mmol/L [facility] Urea nitrogen [Mass/Vol] 11 mg/dL 7 - 21 mg/dL [facility] CBC W Auto Differential pane l (Bld)on 07-20-2023 Basophils (Bld) [#/Vol] 0.04 10*3/uL <0.11 k/uL [facility] Basophils/100 WBC (Bld) 1.0 % [facility] Differential cell count method Nom (Bld) Auto [facility] Eosinophils (Bld) [#/Vol] 0.31 10*3/uL <0.46 k/uL [facility] Eosinophils/100 WBC (Bld) 7.4 % [facility] Erythrocyte distribution width (RBC) [Ratio] 15.3 % High 11.5 - 15.0 % [facility] Hematocrit (Bld) [Volume fraction] 40.1 % 36.0 - 46.0 % [facility] Hemoglobin (Bld) [Mass/Vol] 13.4 g/dL 11.5 - 15.5 g/dL [facility] Immature granulocytes (Bld) [#/Vol] <0.10 k/uL [facility] Immature granulocytes/100 WBC (Bld) 0.0 % [facility] Lymphocytes (Bld) [#/Vol] 1.06 10*3/uL 1.00 - 4.00 k/uL [facility] Lymphocytes/100 WBC (Bld) 25.4 % [facility] MCH (RBC) [Entitic mass] 35.9 pg High 26.0 - 34.0 pg [facility] MCHC (RBC) [Mass/Vol] 33.4 g/dL 30.5 - 36.0 g/dL [facility] MCV (RBC) [Entitic vol] 107.5 fL High 80.0 - 100.0 fL [facility] Monocytes (Bld) [#/Vol] 0.40 10*3/uL <0.87 k/uL [facility] Monocytes/100 WBC (Bld) 9.6 % [facility] Neutrophils (Bld) [#/Vol] 2.37 10*3/uL 1.45 - 7.50 k/uL [facility] Neutrophils/100 WBC (Bld) 56.6 % [facility] Nucleated RBC (Bld) [#/Vol] <0.01 k/uL [facility] Nucleated RBC/100 WBC (Bld) [Ratio] 0.0 /100 WBC [facility] Platelet mean volume (Bld) [Entitic vol] 10.1 fL 9.0 - 12.7 fL [facility] Platelets (Bld) [#/Vol] 143 10*3/uL Low 150 - 400 k/uL [facility] RBC (Bld) [#/Vol] 3.73 10*6/uL Low 3.90 - 5.2 0 m/uL [facility] WBC (Bld) [#/Vol] 4.18 10*3/uL 3.70 - 11. 00 k/uL [facility] Comprehensive metabolic 2000 panelon 07-20-2023 Albumin [Mass/Vol] 3.6 g/dL Low 3.9 - 4.9 g/dL [facility] ALP [Catalytic activity/Vol] 179 U/L High 34 - 123 U/L [facility] ALT [Catalytic activity/Vol] 21 U/L 7 - 38 U/L [facility] Anion gap [Moles/Vol] 7 mmol/L Low 9 - 18 mmol/L [facility] AST [Catalytic activity/Vol] 38 U/L High 13 - 35 U/L [facility] Bilirubin [Mass/Vol] 0.6 mg/dL 0.2 - 1 .3 mg/dL [facility] Calcium [Mass/Vol] 9.7 mg/dL 8.5 - 10. 2 mg/dL [facility] Chloride [Moles/Vol] 107 mmol/L High 97 - 10 5 mmol/L [facility] CO2 [Moles/Vol] 27 mmol/L 22 - 30 mmol/L [facility] Creatinine [Mass/Vol] 0.93 mg/dL 0.58 - 0.96 mg/dL [facility] Estimated Glomerular Filtration Rate 67 mL/min/1.73m >=60 mL/min/1.73m [facility] Glucose [Mass/Vol] 132 mg/dL High 74 - 99 mg/dL [facility] Potassium [Moles/Vol] 3.6 mmol/L Low 3.7 - 5.1 mmol/L [facility] Protein [Mass/Vol] 5.8 g/dL Low 6.3 - 8.0 g/dL [facility] Sodium [Moles/Vol] 141 mmol/L 136 - 144 mmol/L [facility] Urea nitrogen [Mass/Vol] 13 mg/dL 7 - 21 mg/dL [facility] CBC W Auto Differential pane l (Bld)on 04-26-2023 Basophils (Bld) [#/Vol] 0.04 10*3/uL <0.11 k/uL [facility] Basophils/100 WBC (Bld) 0.9 % [facility] Differential cell count method Nom (Bld) Auto [facility] Eosinophils (Bld) [#/Vol] 0.35 10*3/uL <0.46 k/uL [facility] Eosinophils/100 WBC (Bld) 8.0 % [facility] Erythrocyte distribution width (RBC) [Ratio] 14.5 % 11.5 - 15.0 % [facility] Hematocrit (Bld) [Volume fraction] 37.8 % 36.0 - 46.0 % [facility] Hemoglobin (Bld) [Mass/Vol] 12.6 g/dL 11.5 - 15.5 g/dL [facility] Immature granulocytes (Bld) [#/Vol] <0.10 k/uL [facility] Immature granulocytes/100 WBC (Bld) 0.2 % [facility] Lymphocytes (Bld) [#/Vol] 1.17 10*3/uL 1.00 - 4.00 k/uL [facility] Lymphocytes/100 WBC (Bld) 26.7 % [facility] MCH (RBC) [Entitic mass] 33.9 pg 26.0 - 34.0 pg [facility] MCHC (RBC) [Mass/Vol] 33.3 g/dL 30.5 - 36.0 g/dL [facility] MCV (RBC) [Entitic vol] 101.6 fL High 80.0 - 100.0 fL [facility] Monocytes (Bld) [#/Vol] 0.51 10*3/uL <0.87 k/uL [facility] Monocytes/100 WBC (Bld) 11.6 % [facility] Neutrophils (Bld) [#/Vol] 2.30 10*3/uL 1.45 - 7.50 k/uL [facility] Neutrophils/100 WBC (Bld) 52.6 % [facility] Nucleated RBC (Bld) [#/Vol] <0.01 k/uL [facility] Nucleated RBC/100 WBC (Bld) [Ratio] 0.0 /100 WBC [facility] Platelet mean volume (Bld) [Entitic vol] 9.2 fL 9.0 - 12.7 fL [facility] Platelets (Bld) [#/Vol] 176 10*3/uL 150 - 400 k/uL [facility] RBC (Bld) [#/Vol] 3.72 10*6/uL Low 3.90 - 5.2 0 m/uL [facility] WBC (Bld) [#/Vol] 4.38 10*3/uL 3.70 - 11. 00 k/uL [facility] Comprehensive metabolic 2000 panelon 04-26-2023 Albumin [Mass/Vol] 3.7 g/dL Low 3.9 - 4.9 g/dL [facility] ALP [Catalytic activity/Vol] 160 U/L High 34 - 123 U/L [facility] ALT [Catalytic activity/Vol] 16 U/L 7 - 38 U/L [facility] Anion gap [Moles/Vol] 7 mmol/L Low 9 - 18 mmol/L [facility] AST [Catalytic activity/Vol] 32 U/L 13 - 35 U/L [facility] Bilirubin [Mass/Vol] 0.5 mg/dL 0.2 - 1 .3 mg/dL [facility] Calcium [Mass/Vol] 8.9 mg/dL 8.5 - 10. 2 mg/dL [facility] Chloride [Moles/Vol] 107 mmol/L High 97 - 10 5 mmol/L [facility] CO2 [Moles/Vol] 28 mmol/L 22 - 30 mmol/L [facility] Creatinine [Mass/Vol] 0.92 mg/dL 0.58 - 0.96 mg/dL [facility] Estimated Glomerular Filtration Rate 68 mL/min/1.73m >=60 mL/min/1.73m [facility] Glucose [Mass/Vol] 123 mg/dL High 74 - 99 mg/dL [facility] Potassium [Moles/Vol] 3.7 mmol/L 3.7 - 5.1 mmol/L [facility] Protein [Mass/Vol] 5.9 g/dL Low 6.3 - 8.0 g/dL [facility] Sodium [Moles/Vol] 142 mmol/L 136 - 144 mmol/L [facility] Urea nitrogen [Mass/Vol] 9 mg/dL 7 - 21 mg/dL [facility] US THYROID/PARATHYROIDon [facility] CBC W Auto Differential pane l (Bld)on 03-16-2023 Basophils (Bld) [#/Vol] <0.11 k/uL [facility] Basophils/100 WBC (Bld) 0.5 % [facility] Differential cell count method Nom (Bld) Auto [facility] Eosinophils (Bld) [#/Vol] 0.23 10*3/uL <0.46 k/uL [facility] Eosinophils/100 WBC (Bld) 5.4 % [facility] Erythrocyte distribution width (RBC) [Ratio] 13.2 % 11.5 - 15.0 % [facility] Hematocrit (Bld) [Volume fraction] 39.3 % 36.0 - 46.0 % [facility] Hemoglobin (Bld) [Mass/Vol] 13.4 g/dL 11.5 - 15.5 g/dL [facility] Immature granulocytes (Bld) [#/Vol] <0.10 k/uL [facility] Immature granulocytes/100 WBC (Bld) 0.2 % [facility] Lymphocytes (Bld) [#/Vol] 1.06 10*3/uL 1.00 - 4.00 k/uL [facility] Lymphocytes/100 WBC (Bld) 24.7 % [facility] MCH (RBC) [Entitic mass] 35.3 pg High 26.0 - 34.0 pg [facility] MCHC (RBC) [Mass/Vol] 34.1 g/dL 30.5 - 36.0 g/dL [facility] MCV (RBC) [Entitic vol] 103.4 fL High 80.0 - 100.0 fL [facility] Monocytes (Bld) [#/Vol] 0.46 10*3/uL <0.87 k/uL [facility] Monocytes/100 WBC (Bld) 10.7 % [facility] Neutrophils (Bld) [#/Vol] 2.51 10*3/uL 1.45 - 7.50 k/uL [facility] Neutrophils/100 WBC (Bld) 58.5 % [facility] Nucleated RBC (Bld) [#/Vol] <0.01 k/uL [facility] Nucleated RBC/100 WBC (Bld) [Ratio] 0.0 /100 WBC [facility] Platelet mean volume (Bld) [Entitic vol] 9.8 fL 9.0 - 12.7 fL [facility] Platelets (Bld) [#/Vol] 119 10*3/uL Low 150 - 400 k/uL [facility] RBC (Bld) [#/Vol] 3.80 10*6/uL Low 3.90 - 5.2 0 m/uL [facility] WBC (Bld) [#/Vol] 4.29 10*3/uL 3.70 - 11. 00 k/uL [facility] Comprehensive metabolic 2000 panelon 03-16-2023 Albumin [Mass/Vol] 3.7 g/dL Low 3.9 - 4.9 g/dL [facility] ALP [Catalytic activity/Vol] 219 U/L High 34 - 123 U/L [facility] ALT [Catalytic activity/Vol] 25 U/L 7 - 38 U/L [facility] Anion gap [Moles/Vol] 9 mmol/L 9 - 18 mmol/L [facility] AST [Catalytic activity/Vol] 35 U/L 13 - 35 U/L [facility] Bilirubin [Mass/Vol] 0.4 mg/dL 0.2 - 1 .3 mg/dL [facility] Calcium [Mass/Vol] 9.6 mg/dL 8.5 - 10. 2 mg/dL [facility] Chloride [Moles/Vol] 107 mmol/L High 97 - 10 5 mmol/L [facility] CO2 [Moles/Vol] 24 mmol/L 22 - 30 mmol/L [facility] Creatinine [Mass/Vol] 0.90 mg/dL 0.58 - 0.96 mg/dL [facility] Estimated Glomerular Filtration Rate 69 mL/min/1.73m >=60 mL/min/1.73m [facility] Glucose [Mass/Vol] 137 mg/dL High 74 - 99 mg/dL [facility] Potassium [Moles/Vol] 3.6 mmol/L Low 3.7 - 5.1 mmol/L [facility] Protein [Mass/Vol] 5.6 g/dL Low 6.3 - 8.0 g/dL [facility] Sodium [Moles/Vol] 140 mmol/L 136 - 144 mmol/L [facility] Urea nitrogen [Mass/Vol] 14 mg/dL 7 - 21 mg/dL [facility] CT CHEST WO IVCONon 03-11-20 [facility] CBC W Auto Differential pane l (Bld)on 02-23-2023 Basophils (Bld) [#/Vol] 0.03 10*3/uL <0.11 k/uL [facility] Basophils/100 WBC (Bld) 0.7 % [facility] Differential cell count method Nom (Bld) Auto [facility] Eosinophils (Bld) [#/Vol] 0.29 10*3/uL <0.46 k/uL [facility] Eosinophils/100 WBC (Bld) 7.1 % [facility] Erythrocyte distribution width (RBC) [Ratio] 13.9 % 11.5 - 15.0 % [facility] Hematocrit (Bld) [Volume fraction] 40.1 % 36.0 - 46.0 % [facility] Hemoglobin (Bld) [Mass/Vol] 13.2 g/dL 11.5 - 15.5 g/dL [facility] Immature granulocytes (Bld) [#/Vol] <0.10 k/uL [facility] Immature granulocytes/100 WBC (Bld) 0.2 % [facility] Lymphocytes (Bld) [#/Vol] 1.09 10*3/uL 1.00 - 4.00 k/uL [facility] Lymphocytes/100 WBC (Bld) 26.8 % [facility] MCH (RBC) [Entitic mass] 35.2 pg High 26.0 - 34.0 pg [facility] MCHC (RBC) [Mass/Vol] 32.9 g/dL 30.5 - 36.0 g/dL [facility] MCV (RBC) [Entitic vol] 106.9 fL High 80.0 - 100.0 fL [facility] Monocytes (Bld) [#/Vol] 0.45 10*3/uL <0.87 k/uL [facility] Monocytes/100 WBC (Bld) 11.1 % [facility] Neutrophils (Bld) [#/Vol] 2.20 10*3/uL 1.45 - 7.50 k/uL [facility] Neutrophils/100 WBC (Bld) 54.1 % [facility] Nucleated RBC (Bld) [#/Vol] <0.01 k/uL [facility] Nucleated RBC/100 WBC (Bld) [Ratio] 0.0 /100 WBC [facility] Platelet mean volume (Bld) [Entitic vol] 9.6 fL 9.0 - 12.7 fL [facility] Platelets (Bld) [#/Vol] 135 10*3/uL Low 150 - 400 k/uL [facility] RBC (Bld) [#/Vol] 3.75 10*6/uL Low 3.90 - 5.2 0 m/uL [facility] WBC (Bld) [#/Vol] 4.07 10*3/uL 3.70 - 11. 00 k/uL [facility] Comprehensive metabolic 2000 panelon 02-23-2023 Albumin [Mass/Vol] 3.8 g/dL Low 3.9 - 4.9 g/dL [facility] ALP [Catalytic activity/Vol] 206 U/L High 34 - 123 U/L [facility] ALT [Catalytic activity/Vol] 20 U/L 7 - 38 U/L [facility] Anion gap [Moles/Vol] 9 mmol/L 9 - 18 mmol/L [facility] AST [Catalytic activity/Vol] 33 U/L 13 - 35 U/L [facility] Bilirubin [Mass/Vol] 0.5 mg/dL 0.2 - 1 .3 mg/dL [facility] Calcium [Mass/Vol] 10.1 mg/dL 8.5 - 10. 2 mg/dL [facility] Chloride [Moles/Vol] 105 mmol/L 97 - 10 5 mmol/L [facility] CO2 [Moles/Vol] 28 mmol/L 22 - 30 mmol/L [facility] Creatinine [Mass/Vol] 0.92 mg/dL 0.58 - 0.96 mg/dL [facility] Estimated Glomerular Filtration Rate 68 mL/min/1.73m >=60 mL/min/1.73m [facility] Glucose [Mass/Vol] 104 mg/dL High 74 - 99 mg/dL [facility] Potassium [Moles/Vol] 3.8 mmol/L 3.7 - 5.1 mmol/L [facility] Protein [Mass/Vol] 6.1 g/dL Low 6.3 - 8.0 g/dL [facility] Sodium [Moles/Vol] 142 mmol/L 136 - 144 mmol/L [facility] Urea nitrogen [Mass/Vol] 14 mg/dL 7 - 21 mg/dL [facility] Absolute lymphocyte countOrd ered By: Gurvinder Dill on 02-16-2023 Lymphocytes Auto (Unsp spec) [#/Vol] 1.14 10*3/uL 0.83-4.51 [facility] Basophil percentageOrdered B y: Gurvinder Dill on 02-16-2023 Basophils/100 WBC (Bld) 0.6 % 0-1 [facility] Eosinophils/100 WBC (Bld) 5.2 % 0-5 [facility] Neutrophils (Bld) [#/Vol] 2.7 10*3/uL 2.0-7.7 [facility] Neutrophils/100 WBC (Bld) 58.7 % 47-70 [facility] WBC (Bld) [#/Vol] 4.7 10*3/uL 4.4-11.0 [facility] Chloride [Moles/Vol] 109 mmol/L 98-107 [facility] Glucose [Mass/Vol] 90 mg/dL 74-106 [facility] Potassium [Moles/Vol] 4.4 mmol/L 3.5-5.1 [facility] Sodium [Moles/Vol] 143 mmol/L 136-145 [facility] Blood erythrocytes count (nu mber/volume)Ordered By: Gurvinder Dill on 02-16-2023 RBC (Bld) [#/Vol] 3.53 10*6/uL 4.2-5.4 [facility] Blood hemoglobin measurement (mass/volume)Ordered By: Gurvinder Dill on 02-16-2023 Hemoglobin (Bld) [Mass/Vol] 12.7 g/dL 12.0-15.0 [facility] Blood lymphocytes/100 leukoc ytesOrdered By: Gurvinder Dill on 02-16-2023 Lymphocytes/100 WBC (Bld) 24.5 % 19-41 [facility] Blood monocytes/100 leukocyt esOrdered By: [facility] on 02-16-2023 Monocytes/100 WBC (Bld) 10.8 % 0-10 [facility] Blood platelet mean volumeOr dered By: Gurvinder Dill on 02-16-2023 Platelet mean volume (Bld) [Entitic vol] 10.5 fL 6.2-12.0 [facility] Determination of erythrocyte mean corpuscular volume (MCV)Ordered By: [place] Fuentes on 02-16-2023 MCV (RBC) [Entitic vol] 111.3 fL 81-99 [facility] Hematocrit Auto (Bld) [Volum e fraction]Ordered By: [facility] on 02-16-2023 Hematocrit (Bld) [Volume fraction] 39.3 % 37-47 [facility] Laboratory - Chemistry and C hemistry - challengeOrdered By: [facility] on 02-16-2023 CO2 [Moles/Vol] 31.0 mmol/L 21.0-32.0 [facility] Natriuretic peptide B (Bld) [Mass/Vol] 92.8 pg/mL 0-100 [facility] Urea nitrogen/Creatinine [Mass ratio] 13.1 mg/mg 10-20 [facility] Laboratory - Hematology and Cell countsOrdered By: [facility] on 02-16-2023 Erythrocyte distribution width (RBC) [Entitic vol] 59.1 fL 35.1-43.9 [facility] Erythrocyte distribution width (RBC) [Ratio] 14.3 % 11.6-14.6 [facility] Immature granulocytes/100 WBC (Bld) 0.200 % 0.0-0.9 [facility] Comment on above: IG% - Immature Granu locytes (promyelocytes, myelocytes and metamyelocytes) > 1% indicates that a LEFT SHIFT is Present. MCH (RBC) [Entitic mass] 36.0 pg 27.0-32.0 [facility] Nucleated RBC/100 WBC (Bld) [Ratio] 0 % 0-5 [facility] MCHC Auto (RBC) [Mass/Vol]Or dered By: [place] Fuentes on 02-16-2023 MCHC (RBC) [Mass/Vol] 32.3 g/dL 32-36 [facility] No Panel InformationOrdered By: [facility] 02-16[facility]2023 D-Dimer Quantitative (PE/DVT) 0.77 FEU/ug/m 0.27-0.49 [facility] Comment on above: D-Dimer ELEVATED (>0 .49): Additional studies and clinicalassessments are indicated to conclude diagnosis of:Deep Vein Thrombosis (DVT) or Pulmonary Embolism (PE)CRITICAL VALUE VERIFIED. CALLED TO ELVA GRIMM02/16/23 2130 [address]ai.RESULTS READ BACK BY SAME . Estimated Creatinine Clearance Calc 44.03 ml/min [facility] Estimated GFR (MDRD) Amer 78 mL/min >60 [facility] Comment on above: GFR Calc Estimated GFR (MDRD) Non-Af Amer 65 mL/min >60 [facility] Comment on above: Non- GFR Calc Troponin I High Sensitivity 9 pg/mL 3.0-54.0 [facility] Comment on above: Please Note: New [place] t Units and Gender Specific Reference Ranges. For more information see Policy Stat Procedure [place] High Sensitivity Troponin (TNIH) and attachments. Platelets bldOrdered By: Cinthya Fuentes on 02-16-2023 Platelets (Bld) [#/Vol] 115 10*3/uL 150-450 [facility] Serum or plasma calcium michelle urement (mass/volume)Ordered By: Gurvinder Fuentes on 02-16-2023 Calcium [Mass/Vol] 9.6 mg/dL 8.5-10.1 [facility] Serum or plasma creatinine m easurement (mass/volume)Ordered By: [facility] Fuentes on 02-16-2023 Creatinine [Mass/Vol] 0.91 mg/dL 0.55-1.02 [facility] Comment on above: The validity of the calculated GFR & GFRAA in patients over 70 years has not been determined. Clinical correlation is essential. Serum or plasma urea nitroge n measurement (mass/volume)Ordered By: Gurvinder Fuentes on 02-16-2023 Urea nitrogen [Mass/Vol] 12 mg/dL 7-18 [facility] Thin prep Papanicolaou smear with manual screeningOrdered By: Rem Fuentes on 02-16-2023 Thin prep Papanicolaou smear with manual screening 3 5-15 [facility] CBC W Auto Differential pane l (Bld)on 02-02-2023 Basophils (Bld) [#/Vol] 0.03 10*3/uL <0.11 k/uL [facility] Basophils/100 WBC (Bld) 0.9 % [facility] Differential cell count method Nom (Bld) Auto [facility] Eosinophils (Bld) [#/Vol] 0.24 10*3/uL <0.46 k/uL [facility] Eosinophils/100 WBC (Bld) 7.2 % [facility] Erythrocyte distribution width (RBC) [Ratio] 15.3 % High 11.5 - 15.0 % [facility] Hematocrit (Bld) [Volume fraction] 35.7 % Low 36.0 - 46.0 % [facility] Hemoglobin (Bld) [Mass/Vol] 11.9 g/dL 11.5 - 15.5 g/dL [facility] Immature granulocytes (Bld) [#/Vol] <0.10 k/uL [facility] Immature granulocytes/100 WBC (Bld) 0.3 % [facility] Lymphocytes (Bld) [#/Vol] 1.18 10*3/uL 1.00 - 4.00 k/uL [facility] Lymphocytes/100 WBC (Bld) 35.4 % [facility] MCH (RBC) [Entitic mass] 36.1 pg High 26.0 - 34.0 pg [facility] MCHC (RBC) [Mass/Vol] 33.3 g/dL 30.5 - 36.0 g/dL [facility] MCV (RBC) [Entitic vol] 108.2 fL High 80.0 - 100.0 fL [facility] Monocytes (Bld) [#/Vol] 0.46 10*3/uL <0.87 k/uL [facility] Monocytes/100 WBC (Bld) 13.8 % [facility] Neutrophils (Bld) [#/Vol] 1.41 10*3/uL Low 1.45 - 7.50 k/uL [facility] Neutrophils/100 WBC (Bld) 42.4 % [facility] Nucleated RBC (Bld) [#/Vol] <0.01 k/uL [facility] Nucleated RBC/100 WBC (Bld) [Ratio] 0.0 /100 WBC [facility] Platelet mean volume (Bld) [Entitic vol] 9.4 fL 9.0 - 12.7 fL [facility] Platelets (Bld) [#/Vol] 179 10*3/uL 150 - 400 k/uL [facility] RBC (Bld) [#/Vol] 3.30 10*6/uL Low 3.90 - 5.2 0 m/uL [facility] WBC (Bld) [#/Vol] 3.33 10*3/uL Low 3.70 - 11. 00 k/uL [facility] Comprehensive metabolic 2000 panelon 02-02-2023 Albumin [Mass/Vol] 3.7 g/dL Low 3.9 - 4.9 g/dL [facility] ALP [Catalytic activity/Vol] 196 U/L High 34 - 123 U/L [facility] ALT [Catalytic activity/Vol] 21 U/L 7 - 38 U/L [facility] Anion gap [Moles/Vol] 10 mmol/L 9 - 18 mmol/L [facility] AST [Catalytic activity/Vol] 37 U/L High 13 - 35 U/L [facility] Bilirubin [Mass/Vol] 0.3 mg/dL 0.2 - 1 .3 mg/dL [facility] Calcium [Mass/Vol] 9.6 mg/dL 8.5 - 10. 2 mg/dL [facility] Chloride [Moles/Vol] 109 mmol/L High 97 - 10 5 mmol/L [facility] CO2 [Moles/Vol] 23 mmol/L 22 - 30 mmol/L [facility] Creatinine [Mass/Vol] 0.97 mg/dL High 0.58 - 0.96 mg/dL [facility] Estimated Glomerular Filtration Rate 63 mL/min/1.73m >=60 mL/min/1.73m [facility] Glucose [Mass/Vol] 124 mg/dL High 74 - 99 mg/dL [facility] Potassium [Moles/Vol] 4.5 mmol/L 3.7 - 5.1 mmol/L [facility] Protein [Mass/Vol] 5.8 g/dL Low 6.3 - 8.0 g/dL [facility] Sodium [Moles/Vol] 142 mmol/L 136 - 144 mmol/L [facility] Urea nitrogen [Mass/Vol] 16 mg/dL 7 - 21 mg/dL [facility] No Panel Informationon 01-26 [facility] CBC W Auto Differential pane l (Bld)on 01-12-2023 Basophils (Bld) [#/Vol] 0.03 10*3/uL <0.11 k/uL [facility] Basophils/100 WBC (Bld) 0.9 % [facility] Differential cell count method Nom (Bld) Auto [facility] Eosinophils (Bld) [#/Vol] 0.28 10*3/uL <0.46 k/uL [facility] Eosinophils/100 WBC (Bld) 8.3 % [facility] Erythrocyte distribution width (RBC) [Ratio] 15.5 % High 11.5 - 15.0 % [facility] Hematocrit (Bld) [Volume fraction] 35.6 % Low 36.0 - 46.0 % [facility] Hemoglobin (Bld) [Mass/Vol] 11.9 g/dL 11.5 - 15.5 g/dL [facility] Immature granulocytes (Bld) [#/Vol] <0.10 k/uL [facility] Immature granulocytes/100 WBC (Bld) 0.3 % [facility] Lymphocytes (Bld) [#/Vol] 1.14 10*3/uL 1.00 - 4.00 k/uL [facility] Lymphocytes/100 WBC (Bld) 33.7 % [facility] MCH (RBC) [Entitic mass] 36.4 pg High 26.0 - 34.0 pg [facility] MCHC (RBC) [Mass/Vol] 33.4 g/dL 30.5 - 36.0 g/dL [facility] MCV (RBC) [Entitic vol] 108.9 fL High 80.0 - 100.0 fL [facility] Monocytes (Bld) [#/Vol] 0.43 10*3/uL <0.87 k/uL [facility] Monocytes/100 WBC (Bld) 12.7 % [facility] Neutrophils (Bld) [#/Vol] 1.49 10*3/uL 1.45 - 7.50 k/uL [facility] Neutrophils/100 WBC (Bld) 44.1 % [facility] Nucleated RBC (Bld) [#/Vol] <0.01 k/uL [facility] Nucleated RBC/100 WBC (Bld) [Ratio] 0.0 /100 WBC [facility] Platelet mean volume (Bld) [Entitic vol] 9.5 fL 9.0 - 12.7 fL [facility] Platelets (Bld) [#/Vol] 177 10*3/uL 150 - 400 k/uL [facility] RBC (Bld) [#/Vol] 3.27 10*6/uL Low 3.90 - 5.2 0 m/uL [facility] WBC (Bld) [#/Vol] 3.38 10*3/uL Low 3.70 - 11. 00 k/uL [facility] Comprehensive metabolic 2000 panelon 01-12-2023 Albumin [Mass/Vol] 3.5 g/dL Low 3.9 - 4.9 g/dL [facility] ALP [Catalytic activity/Vol] 178 U/L High 34 - 123 U/L [facility] ALT [Catalytic activity/Vol] 20 U/L 7 - 38 U/L [facility] Anion gap [Moles/Vol] 7 mmol/L Low 9 - 18 mmol/L [facility] AST [Catalytic activity/Vol] 34 U/L 13 - 35 U/L [facility] Bilirubin [Mass/Vol] 0.4 mg/dL 0.2 - 1 .3 mg/dL [facility] Calcium [Mass/Vol] 9.5 mg/dL 8.5 - 10. 2 mg/dL [facility] Chloride [Moles/Vol] 109 mmol/L High 97 - 10 5 mmol/L [facility] CO2 [Moles/Vol] 24 mmol/L 22 - 30 mmol/L [facility] Creatinine [Mass/Vol] 0.99 mg/dL High 0.58 - 0.96 mg/dL [facility] [facility] Estimated Glomerular Filtration Rate 62 mL/min/1.73m >=60 mL/min/1.73m [facility] Glucose [Mass/Vol] 119 mg/dL High 74 - 99 mg/dL [facility] Potassium [Moles/Vol] 4.3 mmol/L 3.7 - 5.1 mmol/L [facility] Protein [Mass/Vol] 5.9 g/dL Low 6.3 - 8.0 g/dL [facility] Sodium [Moles/Vol] 140 mmol/L 136 - 144 mmol/L [facility] Urea nitrogen [Mass/Vol] 14 mg/dL 7 - 21 mg/dL [facility] CBC W Auto Differential pane l (Bld)on 12-01-2022 Basophils (Bld) [#/Vol] 0.03 10*3/uL <0.11 k/uL [facility] Basophils/100 WBC (Bld) 0.7 % [facility] Differential cell count method Nom (Bld) Auto [facility] Eosinophils (Bld) [#/Vol] 0.28 10*3/uL <0.46 k/uL [facility] Eosinophils/100 WBC (Bld) 6.8 % [facility] Erythrocyte distribution width (RBC) [Ratio] 15.2 % High 11.5 - 15.0 % [facility] Hematocrit (Bld) [Volume fraction] 35.2 % Low 36.0 - 46.0 % [facility] Hemoglobin (Bld) [Mass/Vol] 11.9 g/dL 11.5 - 15.5 g/dL [facility] Immature granulocytes (Bld) [#/Vol] <0.10 k/uL [facility] Immature granulocytes/100 WBC (Bld) 0.0 % [facility] Lymphocytes (Bld) [#/Vol] 1.30 10*3/uL 1.00 - 4.00 k/uL [facility] Lymphocytes/100 WBC (Bld) 31.6 % [facility] MCH (RBC) [Entitic mass] 36.7 pg High 26.0 - 34.0 pg [facility] MCHC (RBC) [Mass/Vol] 33.8 g/dL 30.5 - 36.0 g/dL [facility] MCV (RBC) [Entitic vol] 108.6 fL High 80.0 - 100.0 fL [facility] Monocytes (Bld) [#/Vol] 0.43 10*3/uL <0.87 k/uL [facility] Monocytes/100 WBC (Bld) 10.4 % [facility] Neutrophils (Bld) [#/Vol] 2.08 10*3/uL 1.45 - 7.50 k/uL [facility] Neutrophils/100 WBC (Bld) 50.5 % [facility] Nucleated RBC (Bld) [#/Vol] <0.01 k/uL [facility] Nucleated RBC/100 WBC (Bld) [Ratio] 0.0 /100 WBC [facility] Platelet mean volume (Bld) [Entitic vol] 9.2 fL 9.0 - 12.7 fL [facility] Platelets (Bld) [#/Vol] 147 10*3/uL Low 150 - 400 k/uL [facility] RBC (Bld) [#/Vol] 3.24 10*6/uL Low 3.90 - 5.2 0 m/uL [facility] WBC (Bld) [#/Vol] 4.12 10*3/uL 3.70 - 11. 00 k/uL [facility] Comprehensive metabolic 2000 panelon 06-28-2023 Albumin [Mass/Vol] 3.8 g/dL Low 3.9 - 4.9 g/dL [facility] ALP [Catalytic activity/Vol] 202 U/L High 34 - 123 U/L [facility] ALT [Catalytic activity/Vol] 20 U/L 7 - 38 U/L [facility] Anion gap [Moles/Vol] 7 mmol/L Low 9 - 18 mmol/L [facility] AST [Catalytic activity/Vol] 33 U/L 13 - 35 U/L [facility] Bilirubin [Mass/Vol] 0.3 mg/dL 0.2 - 1 .3 mg/dL [facility] Calcium [Mass/Vol] 9.8 mg/dL 8.5 - 10. 2 mg/dL [facility] Chloride [Moles/Vol] 107 mmol/L High 97 - 10 5 mmol/L [facility] CO2 [Moles/Vol] 27 mmol/L 22 - 30 mmol/L [facility] Creatinine [Mass/Vol] 1.02 mg/dL High 0.58 - 0.96 mg/dL [facility] Estimated Glomerular Filtration Rate 60 mL/min/1.73m >=60 mL/min/1.73m [facility] Glucose [Mass/Vol] 134 mg/dL High 74 - 99 mg/dL [facility] Potassium [Moles/Vol] 3.9 mmol/L 3.7 - 5.1 mmol/L [facility] Protein [Mass/Vol] 5.9 g/dL Low 6.3 - 8.0 g/dL [facility] Sodium [Moles/Vol] 141 mmol/L 136 - 144 mmol/L [facility] Urea nitrogen [Mass/Vol] 15 mg/dL 7 - 21 mg/dL [facility] CBC W Auto Differential pane l (Bld)on 11-10-2022 Basophils (Bld) [#/Vol] 0.03 10*3/uL <0.11 k/uL [facility] Basophils/100 WBC (Bld) 0.8 % [facility] Differential cell count method Nom (Bld) Auto [facility] Eosinophils (Bld) [#/Vol] 0.28 10*3/uL <0.46 k/uL [facility] Eosinophils/100 WBC (Bld) 7.6 % [facility] Erythrocyte distribution width (RBC) [Ratio] 15.4 % High 11.5 - 15.0 % [facility] Hematocrit (Bld) [Volume fraction] 36.8 % 36.0 - 46.0 % [facility] Hemoglobin (Bld) [Mass/Vol] 12.4 g/dL 11.5 - 15.5 g/dL [facility] Immature granulocytes (Bld) [#/Vol] <0.10 k/uL [facility] Immature granulocytes/100 WBC (Bld) 0.0 % [facility] Lymphocytes (Bld) [#/Vol] 1.17 10*3/uL 1.00 - 4.00 k/uL [facility] Lymphocytes/100 WBC (Bld) 31.9 % [facility] MCH (RBC) [Entitic mass] 36.5 pg High 26.0 - 34.0 pg [facility] MCHC (RBC) [Mass/Vol] 33.7 g/dL 30.5 - 36.0 g/dL [facility] MCV (RBC) [Entitic vol] 108.2 fL High 80.0 - 100.0 fL [facility] Monocytes (Bld) [#/Vol] 0.46 10*3/uL <0.87 k/uL [facility] Monocytes/100 WBC (Bld) 12.5 % [facility] Neutrophils (Bld) [#/Vol] 1.73 10*3/uL 1.45 - 7.50 k/uL [facility] Neutrophils/100 WBC (Bld) 47.2 % [facility] Nucleated RBC (Bld) [#/Vol] <0.01 k/uL [facility] Nucleated RBC/100 WBC (Bld) [Ratio] 0.0 /100 WBC [facility] Platelet mean volume (Bld) [Entitic vol] 9.5 fL 9.0 - 12.7 fL [facility] Platelets (Bld) [#/Vol] 187 10*3/uL 150 - 400 k/uL [facility] RBC (Bld) [#/Vol] 3.40 10*6/uL Low 3.90 - 5.2 0 m/uL [facility] WBC (Bld) [#/Vol] 3.67 10*3/uL Low 3.70 - 11. 00 k/uL [facility] Comprehensive metabolic 2000 panelon 11-10-2022 Albumin [Mass/Vol] 3.8 g/dL Low 3.9 - 4.9 g/dL [facility] ALP [Catalytic activity/Vol] 183 U/L High 34 - 123 U/L [facility] ALT [Catalytic activity/Vol] 20 U/L 7 - 38 U/L [facility] Anion gap [Moles/Vol] 7 mmol/L Low 9 - 18 mmol/L [facility] AST [Catalytic activity/Vol] 33 U/L 13 - 35 U/L [facility] Bilirubin [Mass/Vol] 0.5 mg/dL 0.2 - 1 .3 mg/dL [facility] Calcium [Mass/Vol] 9.6 mg/dL 8.5 - 10. 2 mg/dL [facility] Chloride [Moles/Vol] 106 mmol/L High 97 - 10 5 mmol/L [facility] CO2 [Moles/Vol] 29 mmol/L 22 - 30 mmol/L [facility] Creatinine [Mass/Vol] 1.01 mg/dL High 0.58 - 0.96 mg/dL [facility] Estimated Glomerular Filtration Rate 60 mL/min/1.73m >=60 mL/min/1.73m [facility] Glucose [Mass/Vol] 114 mg/dL High 74 - 99 mg/dL [facility] Potassium [Moles/Vol] 4.4 mmol/L 3.7 - 5.1 mmol/L [facility] Protein [Mass/Vol] 6.0 g/dL Low 6.3 - 8.0 g/dL [facility] Sodium [Moles/Vol] 142 mmol/L 136 - 144 mmol/L [facility] Urea nitrogen [Mass/Vol] 12 mg/dL 7 - 21 mg/dL [facility] No Panel Informationon 11-10 [facility] CBC W Auto Differential pane l (Bld)on 10-18-2022 Basophils (Bld) [#/Vol] <0.11 k/uL [facility] Basophils/100 WBC (Bld) 0.5 % [facility] Differential cell count method Nom (Bld) Auto [facility] Eosinophils (Bld) [#/Vol] 0.25 10*3/uL <0.46 k/uL [facility] Eosinophils/100 WBC (Bld) 6.5 % [facility] Erythrocyte distribution width (RBC) [Ratio] 15.2 % High 11.5 - 15.0 % [facility] Hematocrit (Bld) [Volume fraction] 36.4 % 36.0 - 46.0 % [facility] Hemoglobin (Bld) [Mass/Vol] 12.6 g/dL 11.5 - 15.5 g/dL [facility] Immature granulocytes (Bld) [#/Vol] <0.10 k/uL [facility] Immature granulocytes/100 WBC (Bld) 0.3 % [facility] Lymphocytes (Bld) [#/Vol] 1.15 10*3/uL 1.00 - 4.00 k/uL [facility] Lymphocytes/100 WBC (Bld) 29.8 % [facility] MCH (RBC) [Entitic mass] 36.8 pg High 26.0 - 34.0 pg [facility] MCHC (RBC) [Mass/Vol] 34.6 g/dL 30.5 - 36.0 g/dL [facility] MCV (RBC) [Entitic vol] 106.4 fL High 80.0 - 100.0 fL [facility] Monocytes (Bld) [#/Vol] 0.41 10*3/uL <0.87 k/uL [facility] Monocytes/100 WBC (Bld) 10.6 % [facility] Neutrophils (Bld) [#/Vol] 2.02 10*3/uL 1.45 - 7.50 k/uL [facility] Neutrophils/100 WBC (Bld) 52.3 % [facility] Nucleated RBC (Bld) [#/Vol] <0.01 k/uL [facility] Nucleated RBC/100 WBC (Bld) [Ratio] 0.0 /100 WBC [facility] Platelet mean volume (Bld) [Entitic vol] 9.3 fL 9.0 - 12.7 fL [facility] Platelets (Bld) [#/Vol] 173 10*3/uL 150 - 400 k/uL [facility] RBC (Bld) [#/Vol] 3.42 10*6/uL Low 3.90 - 5.2 0 m/uL [facility] WBC (Bld) [#/Vol] 3.86 10*3/uL 3.70 - 11. 00 k/uL [facility] Comprehensive metabolic 2000 panelon 10-18-2022 Albumin [Mass/Vol] 3.9 g/dL 3.9 - 4.9 g/dL [facility] ALP [Catalytic activity/Vol] 204 U/L High 34 - 123 U/L [facility] ALT [Catalytic activity/Vol] 25 U/L 7 - 38 U/L [facility] Anion gap [Moles/Vol] 7 mmol/L Low 9 - 18 mmol/L [facility] AST [Catalytic activity/Vol] 39 U/L High 13 - 35 U/L [facility] Bilirubin [Mass/Vol] 0.5 mg/dL 0.2 - 1 .3 mg/dL [facility] Calcium [Mass/Vol] 9.8 mg/dL 8.5 - 10. 2 mg/dL [facility] Chloride [Moles/Vol] 105 mmol/L 97 - 10 5 mmol/L [facility] CO2 [Moles/Vol] 27 mmol/L 22 - 30 mmol/L [facility] Creatinine [Mass/Vol] 0.90 mg/dL 0.58 - 0.96 mg/dL [facility] Estimated Glomerular Filtration Rate 69 mL/min/1.73m >=60 mL/min/1.73m [facility] Glucose [Mass/Vol] 99 mg/dL 74 - 99 mg/dL [facility] Potassium [Moles/Vol] 4.0 mmol/L 3.7 - 5.1 mmol/L [facility] Protein [Mass/Vol] 6.1 g/dL Low 6.3 - 8.0 g/dL [facility] Sodium [Moles/Vol] 139 mmol/L 136 - 144 mmol/L [facility] Urea nitrogen [Mass/Vol] 13 mg/dL 7 - 21 mg/dL [facility] No Panel Informationon 10-18 [facility] CBC W Auto Differential pane l (Bld)on 09-30-2022 Basophils (Bld) [#/Vol] 0.03 10*3/uL <0.11 k/uL [facility] Basophils/100 WBC (Bld) 0.9 % [facility] Differential cell count method Nom (Bld) Auto [facility] Eosinophils (Bld) [#/Vol] 0.22 10*3/uL <0.46 k/uL [facility] Eosinophils/100 WBC (Bld) 6.7 % [facility] Erythrocyte distribution width (RBC) [Ratio] 15.6 % High 11.5 - 15.0 % [facility] Hematocrit (Bld) [Volume fraction] 36.9 % 36.0 - 46.0 % [facility] Hemoglobin (Bld) [Mass/Vol] 12.5 g/dL 11.5 - 15.5 g/dL [facility] Immature granulocytes (Bld) [#/Vol] <0.10 k/uL [facility] Immature granulocytes/100 WBC (Bld) 0.0 % [facility] Lymphocytes (Bld) [#/Vol] 0.94 10*3/uL Low 1.00 - 4.00 k/uL [facility] Lymphocytes/100 WBC (Bld) 28.7 % [facility] MCH (RBC) [Entitic mass] 36.5 pg High 26.0 - 34.0 pg [facility] MCHC (RBC) [Mass/Vol] 33.9 g/dL 30.5 - 36.0 g/dL [facility] MCV (RBC) [Entitic vol] 107.9 fL High 80.0 - 100.0 fL [facility] Monocytes (Bld) [#/Vol] 0.47 10*3/uL <0.87 k/uL [facility] Monocytes/100 WBC (Bld) 14.4 % [facility] Neutrophils (Bld) [#/Vol] 1.61 10*3/uL 1.45 - 7.50 k/uL [facility] Neutrophils/100 WBC (Bld) 49.3 % [facility] Nucleated RBC (Bld) [#/Vol] <0.01 k/uL [facility] Nucleated RBC/100 WBC (Bld) [Ratio] 0.0 /100 WBC [facility] Platelet mean volume (Bld) [Entitic vol] 9.6 fL 9.0 - 12.7 fL [facility] Platelets (Bld) [#/Vol] 200 10*3/uL 150 - 400 k/uL [facility] RBC (Bld) [#/Vol] 3.42 10*6/uL Low 3.90 - 5.2 0 m/uL [facility] WBC (Bld) [#/Vol] 3.27 10*3/uL Low 3.70 - 11. 00 k/uL [facility] Comprehensive metabolic 2000 panelon 09-30-2022 Albumin [Mass/Vol] 3.9 g/dL 3.9 - 4.9 g/dL [facility] ALP [Catalytic activity/Vol] 185 U/L High 34 - 123 U/L [facility] ALT [Catalytic activity/Vol] 23 U/L 7 - 38 U/L [facility] Anion gap [Moles/Vol] 7 mmol/L Low 9 - 18 mmol/L [facility] AST [Catalytic activity/Vol] 40 U/L High 13 - 35 U/L [facility] Bilirubin [Mass/Vol] 0.5 mg/dL 0.2 - 1 .3 mg/dL [facility] Calcium [Mass/Vol] 9.4 mg/dL 8.5 - 10. 2 mg/dL [facility] Chloride [Moles/Vol] 106 mmol/L High 97 - 10 5 mmol/L [facility] CO2 [Moles/Vol] 27 mmol/L 22 - 30 mmol/L [facility] Creatinine [Mass/Vol] 1.02 mg/dL High 0.58 - 0.96 mg/dL [facility] Estimated Glomerular Filtration Rate 60 mL/min/1.73m >=60 mL/min/1.73m [facility] Glucose [Mass/Vol] 110 mg/dL High 74 - 99 mg/dL [facility] Potassium [Moles/Vol] 4.5 mmol/L 3.7 - 5.1 mmol/L [facility] Protein [Mass/Vol] 6.0 g/dL Low 6.3 - 8.0 g/dL [facility] Sodium [Moles/Vol] 140 mmol/L 136 - 144 mmol/L [facility] Urea nitrogen [Mass/Vol] 9 mg/dL 7 - 21 mg/dL [facility] MAXIM DIAG W OMI LEFTon 09-22 [facility] CBC W Auto Differential pane l (Bld)on 09-08-2022 Basophils (Bld) [#/Vol] 0.04 10*3/uL <0.11 k/uL [facility] Basophils/100 WBC (Bld) 1.0 % [facility] Differential cell count method Nom (Bld) Auto [facility] Eosinophils (Bld) [#/Vol] 0.28 10*3/uL <0.46 k/uL [facility] Eosinophils/100 WBC (Bld) 6.7 % [facility] Erythrocyte distribution width (RBC) [Ratio] 15.5 % High 11.5 - 15.0 % [facility] Hematocrit (Bld) [Volume fraction] 36.4 % 36.0 - 46.0 % [facility] Hemoglobin (Bld) [Mass/Vol] 12.2 g/dL 11.5 - 15.5 g/dL [facility] Immature granulocytes (Bld) [#/Vol] <0.10 k/uL [facility] Immature granulocytes/100 WBC (Bld) 0.2 % [facility] Lymphocytes (Bld) [#/Vol] 1.24 10*3/uL 1.00 - 4.00 k/uL [facility] Lymphocytes/100 WBC (Bld) 29.7 % [facility] MCH (RBC) [Entitic mass] 36.1 pg High 26.0 - 34.0 pg [facility] MCHC (RBC) [Mass/Vol] 33.5 g/dL 30.5 - 36.0 g/dL [facility] MCV (RBC) [Entitic vol] 107.7 fL High 80.0 - 100.0 fL [facility] Monocytes (Bld) [#/Vol] 0.54 10*3/uL <0.87 k/uL [facility] Monocytes/100 WBC (Bld) 12.9 % [facility] Neutrophils (Bld) [#/Vol] 2.07 10*3/uL 1.45 - 7.50 k/uL [facility] Neutrophils/100 WBC (Bld) 49.5 % [facility] Nucleated RBC (Bld) [#/Vol] <0.01 k/uL [facility] Nucleated RBC/100 WBC (Bld) [Ratio] 0.0 /100 WBC [facility] Platelet mean volume (Bld) [Entitic vol] 9.9 fL 9.0 - 12.7 fL [facility] Platelets (Bld) [#/Vol] 204 10*3/uL 150 - 400 k/uL [facility] RBC (Bld) [#/Vol] 3.38 10*6/uL Low 3.90 - 5.2 0 m/uL [facility] WBC (Bld) [#/Vol] 4.18 10*3/uL 3.70 - 11. 00 k/uL [facility] Comprehensive metabolic 2000 panelon 09-08-2022 Albumin [Mass/Vol] 3.8 g/dL Low 3.9 - 4.9 g/dL [facility] ALP [Catalytic activity/Vol] 176 U/L High 34 - 123 U/L [facility] ALT [Catalytic activity/Vol] 19 U/L 7 - 38 U/L [facility] Anion gap [Moles/Vol] 7 mmol/L Low 9 - 18 mmol/L [facility] AST [Catalytic activity/Vol] 33 U/L 13 - 35 U/L [facility] Bilirubin [Mass/Vol] 0.4 mg/dL 0.2 - 1 .3 mg/dL [facility] Calcium [Mass/Vol] 9.6 mg/dL 8.5 - 10. 2 mg/dL [facility] Chloride [Moles/Vol] 105 mmol/L 97 - 10 5 mmol/L [facility] CO2 [Moles/Vol] 26 mmol/L 22 - 30 mmol/L [facility] Creatinine [Mass/Vol] 0.87 mg/dL 0.58 - 0.96 mg/dL [facility] Estimated Glomerular Filtration Rate 73 mL/min/1.73m >=60 mL/min/1.73m [facility] Glucose [Mass/Vol] 106 mg/dL High 74 - 99 mg/dL [facility] Potassium [Moles/Vol] 4.1 mmol/L 3.7 - 5.1 mmol/L [facility] Protein [Mass/Vol] 5.8 g/dL Low 6.3 - 8.0 g/dL [facility] Sodium [Moles/Vol] 138 mmol/L 136 - 144 mmol/L [facility] Urea nitrogen [Mass/Vol] 11 mg/dL 7 - 21 mg/dL [facility] MAXIM SCREENING W TOMOon 08-23 [facility] No Panel Informationon 07-27 [facility] CBC W Auto Differential pane l (Bld)on 07-06-2022 Basophils (Bld) [#/Vol] 0.03 10*3/uL <0.11 k/uL [facility] Basophils/100 WBC (Bld) 0.7 % [facility] Differential cell count method Nom (Bld) Auto [facility] Eosinophils (Bld) [#/Vol] 0.24 10*3/uL <0.46 k/uL [facility] Eosinophils/100 WBC (Bld) 5.5 % [facility] Erythrocyte distribution width (RBC) [Ratio] 15.7 % High 11.5 - 15.0 % [facility] Hematocrit (Bld) [Volume fraction] 36.3 % 36.0 - 46.0 % [facility] Hemoglobin (Bld) [Mass/Vol] 12.3 g/dL 11.5 - 15.5 g/dL [facility] Immature granulocytes (Bld) [#/Vol] <0.10 k/uL [facility] Immature granulocytes/100 WBC (Bld) 0.2 % [facility] Lymphocytes (Bld) [#/Vol] 1.55 10*3/uL 1.00 - 4.00 k/uL [facility] Lymphocytes/100 WBC (Bld) 35.3 % [facility] MCH (RBC) [Entitic mass] 35.4 pg High 26.0 - 34.0 pg [facility] MCHC (RBC) [Mass/Vol] 33.9 g/dL 30.5 - 36.0 g/dL [facility] MCV (RBC) [Entitic vol] 104.6 fL High 80.0 - 100.0 fL [facility] Monocytes (Bld) [#/Vol] 0.45 10*3/uL <0.87 k/uL [facility] Monocytes/100 WBC (Bld) 10.3 % [facility] Neutrophils (Bld) [#/Vol] 2.11 10*3/uL 1.45 - 7.50 k/uL [facility] Neutrophils/100 WBC (Bld) 48.0 % [facility] Nucleated RBC (Bld) [#/Vol] <0.01 k/uL [facility] Nucleated RBC/100 WBC (Bld) [Ratio] 0.0 /100 WBC [facility] Platelet mean volume (Bld) [Entitic vol] 9.4 fL 9.0 - 12.7 fL [facility] Platelets (Bld) [#/Vol] 204 10*3/uL 150 - 400 k/uL [facility] RBC (Bld) [#/Vol] 3.47 10*6/uL Low 3.90 - 5.2 0 m/uL [facility] WBC (Bld) [#/Vol] 4.39 10*3/uL 3.70 - 11. 00 k/uL [facility] Comprehensive metabolic 2000 panelon 07-06-2022 Albumin [Mass/Vol] 3.7 g/dL Low 3.9 - 4.9 g/dL [facility] ALP [Catalytic activity/Vol] 185 U/L High 34 - 123 U/L [facility] ALT [Catalytic activity/Vol] 24 U/L 7 - 38 U/L [facility] Anion gap [Moles/Vol] 10 mmol/L 9 - 18 mmol/L [facility] AST [Catalytic activity/Vol] 38 U/L High 13 - 35 U/L [facility] Bilirubin [Mass/Vol] 0.4 mg/dL 0.2 - 1 .3 mg/dL [facility] Calcium [Mass/Vol] 9.3 mg/dL 8.5 - 10. 2 mg/dL [facility] Chloride [Moles/Vol] 104 mmol/L 97 - 10 5 mmol/L [facility] CO2 [Moles/Vol] 29 mmol/L 22 - 30 mmol/L [facility] Creatinine [Mass/Vol] 0.91 mg/dL 0.58 - 0.96 mg/dL [facility] Estimated Glomerular Filtration Rate 69 mL/min/1.73m >=60 mL/min/1.73m [facility] Glucose [Mass/Vol] 142 mg/dL High 74 - 99 mg/dL [facility] Potassium [Moles/Vol] 3.9 mmol/L 3.7 - 5.1 mmol/L [facility] Protein [Mass/Vol] 5.9 g/dL Low 6.3 - 8.0 g/dL [facility] Sodium [Moles/Vol] 143 mmol/L 136 - 144 mmol/L [facility] Urea nitrogen [Mass/Vol] 11 mg/dL 7 - 21 mg/dL [facility] CBC W Auto Differential pane l (Bld)on 06-15-2022 Basophils (Bld) [#/Vol] 0.03 10*3/uL <0.11 k/uL [facility] Basophils/100 WBC (Bld) 0.6 % [facility] Differential cell count method Nom (Bld) Auto [facility] Eosinophils (Bld) [#/Vol] 0.28 10*3/uL <0.46 k/uL [facility] Eosinophils/100 WBC (Bld) 5.3 % [facility] Erythrocyte distribution width (RBC) [Ratio] 15.1 % High 11.5 - 15.0 % [facility] Hematocrit (Bld) [Volume fraction] 37.3 % 36.0 - 46.0 % [facility] Hemoglobin (Bld) [Mass/Vol] 12.7 g/dL 11.5 - 15.5 g/dL [facility] Immature granulocytes (Bld) [#/Vol] <0.10 k/uL [facility] Immature granulocytes/100 WBC (Bld) 0.2 % [facility] Lymphocytes (Bld) [#/Vol] 1.34 10*3/uL 1.00 - 4.00 k/uL [facility] Lymphocytes/100 WBC (Bld) 25.4 % [facility] MCH (RBC) [Entitic mass] 35.8 pg High 26.0 - 34.0 pg [facility] MCHC (RBC) [Mass/Vol] 34.0 g/dL 30.5 - 36.0 g/dL [facility] MCV (RBC) [Entitic vol] 105.1 fL High 80.0 - 100.0 fL [facility] Monocytes (Bld) [#/Vol] 0.51 10*3/uL <0.87 k/uL [facility] Monocytes/100 WBC (Bld) 9.7 % [facility] Neutrophils (Bld) [#/Vol] 3.10 10*3/uL 1.45 - 7.50 k/uL [facility] Neutrophils/100 WBC (Bld) 58.8 % [facility] Nucleated RBC (Bld) [#/Vol] <0.01 k/uL [facility] Nucleated RBC/100 WBC (Bld) [Ratio] 0.0 /100 WBC [facility] Platelet mean volume (Bld) [Entitic vol] 9.7 fL 9.0 - 12.7 fL [facility] Platelets (Bld) [#/Vol] 204 10*3/uL 150 - 400 k/uL [facility] RBC (Bld) [#/Vol] 3.55 10*6/uL Low 3.90 - 5.2 0 m/uL [facility] WBC (Bld) [#/Vol] 5.27 10*3/uL 3.70 - 11. 00 k/uL [facility] Comprehensive metabolic 2000 panelon 06-15-2022 Albumin [Mass/Vol] 3.8 g/dL Low 3.9 - 4.9 g/dL [facility] ALP [Catalytic activity/Vol] 192 U/L High 34 - 123 U/L [facility] ALT [Catalytic activity/Vol] 20 U/L 7 - 38 U/L [facility] Anion gap [Moles/Vol] 8 mmol/L Low 9 - 18 mmol/L [facility] AST [Catalytic activity/Vol] 33 U/L 13 - 35 U/L [facility] Bilirubin [Mass/Vol] 0.3 mg/dL 0.2 - 1 .3 mg/dL [facility] Calcium [Mass/Vol] 10.0 mg/dL 8.5 - 10. 2 mg/dL [facility] Chloride [Moles/Vol] 106 mmol/L High 97 - 10 5 mmol/L [facility] CO2 [Moles/Vol] 27 mmol/L 22 - 30 mmol/L [facility] Creatinine [Mass/Vol] 0.99 mg/dL High 0.58 - 0.96 mg/dL [facility] Estimated Glomerular Filtration Rate 62 mL/min/1.73m >=60 mL/min/1.73m [facility] Glucose [Mass/Vol] 118 mg/dL High 74 - 99 mg/dL [facility] Potassium [Moles/Vol] 4.1 mmol/L 3.7 - 5.1 mmol/L [facility] Protein [Mass/Vol] 6.0 g/dL Low 6.3 - 8.0 g/dL [facility] Sodium [Moles/Vol] 141 mmol/L 136 - 144 mmol/L [facility] Urea nitrogen [Mass/Vol] 15 mg/dL 7 - 21 mg/dL [facility] CBC W Auto Differential pane l (Bld)on 05-25-2022 Basophils (Bld) [#/Vol] 0.03 10*3/uL <0.11 k/uL [facility] Basophils/100 WBC (Bld) 0.6 % [facility] Differential cell count method Nom (Bld) Auto [facility] Eosinophils (Bld) [#/Vol] 0.24 10*3/uL <0.46 k/uL [facility] Eosinophils/100 WBC (Bld) 5.1 % [facility] Erythrocyte distribution width (RBC) [Ratio] 14.9 % 11.5 - 15.0 % [facility] Hematocrit (Bld) [Volume fraction] 35.2 % Low 36.0 - 46.0 % [facility] Hemoglobin (Bld) [Mass/Vol] 12.0 g/dL 11.5 - 15.5 g/dL [facility] Immature granulocytes (Bld) [#/Vol] <0.10 k/uL [facility] Immature granulocytes/100 WBC (Bld) 0.2 % [facility] Lymphocytes (Bld) [#/Vol] 1.32 10*3/uL 1.00 - 4.00 k/uL [facility] Lymphocytes/100 WBC (Bld) 28.0 % [facility] MCH (RBC) [Entitic mass] 35.6 pg High 26.0 - 34.0 pg [facility] MCHC (RBC) [Mass/Vol] 34.1 g/dL 30.5 - 36.0 g/dL [facility] MCV (RBC) [Entitic vol] 104.5 fL High 80.0 - 100.0 fL [facility] Monocytes (Bld) [#/Vol] 0.53 10*3/uL <0.87 k/uL [facility] Monocytes/100 WBC (Bld) 11.2 % [facility] Neutrophils (Bld) [#/Vol] 2.59 10*3/uL 1.45 - 7.50 k/uL [facility] Neutrophils/100 WBC (Bld) 54.9 % [facility] Nucleated RBC (Bld) [#/Vol] <0.01 k/uL [facility] Nucleated RBC/100 WBC (Bld) [Ratio] 0.0 /100 WBC [facility] Platelet mean volume (Bld) [Entitic vol] 9.5 fL 9.0 - 12.7 fL [facility] Platelets (Bld) [#/Vol] 178 10*3/uL 150 - 400 k/uL [facility] RBC (Bld) [#/Vol] 3.37 10*6/uL Low 3.90 - 5.2 0 m/uL [facility] WBC (Bld) [#/Vol] 4.72 10*3/uL 3.70 - 11. 00 k/uL [facility] Comprehensive metabolic 2000 panelon 05-25-2022 Albumin [Mass/Vol] 3.8 g/dL Low 3.9 - 4.9 g/dL [facility] ALP [Catalytic activity/Vol] 166 U/L High 34 - 123 U/L [facility] ALT [Catalytic activity/Vol] 21 U/L 7 - 38 U/L [facility] Anion gap [Moles/Vol] 6 mmol/L Low 9 - 18 mmol/L [facility] AST [Catalytic activity/Vol] 33 U/L 13 - 35 U/L [facility] Bilirubin [Mass/Vol] 0.3 mg/dL 0.2 - 1 .3 mg/dL [facility] Calcium [Mass/Vol] 9.5 mg/dL 8.5 - 10. 2 mg/dL [facility] Chloride [Moles/Vol] 107 mmol/L High 97 - 10 5 mmol/L [facility] CO2 [Moles/Vol] 29 mmol/L 22 - 30 mmol/L [facility] Creatinine [Mass/Vol] 0.93 mg/dL 0.58 - 0.96 mg/dL [facility] Estimated Glomerular Filtration Rate 67 mL/min/1.73m >=60 mL/min/1.73m [facility] Glucose [Mass/Vol] 116 mg/dL High 74 - 99 mg/dL [facility] Potassium [Moles/Vol] 3.6 mmol/L Low 3.7 - 5.1 mmol/L [facility] Protein [Mass/Vol] 5.7 g/dL Low 6.3 - 8.0 g/dL [facility] Sodium [Moles/Vol] 142 mmol/L 136 - 144 mmol/L [facility] Urea nitrogen [Mass/Vol] 16 mg/dL 7 - 21 mg/dL [facility] CBC W Auto Differential pane l (Bld)on 05-06-2022 Basophils (Bld) [#/Vol] 0.04 10*3/uL <0.11 k/uL [facility] Basophils/100 WBC (Bld) 0.9 % [facility] Differential cell count method Nom (Bld) Auto [facility] Eosinophils (Bld) [#/Vol] 0.25 10*3/uL <0.46 k/uL [facility] Eosinophils/100 WBC (Bld) 5.6 % [facility] Erythrocyte distribution width (RBC) [Ratio] 14.8 % 11.5 - 15.0 % [facility] Hematocrit (Bld) [Volume fraction] 37.7 % 36.0 - 46.0 % [facility] Hemoglobin (Bld) [Mass/Vol] 13.2 g/dL 11.5 - 15.5 g/dL [facility] Immature granulocytes (Bld) [#/Vol] <0.10 k/uL [facility] Immature granulocytes/100 WBC (Bld) 0.4 % [facility] Lymphocytes (Bld) [#/Vol] 1.33 10*3/uL 1.00 - 4.00 k/uL [facility] Lymphocytes/100 WBC (Bld) 29.6 % [facility] MCH (RBC) [Entitic mass] 36.9 pg High 26.0 - 34.0 pg [facility] MCHC (RBC) [Mass/Vol] 35.0 g/dL 30.5 - 36.0 g/dL [facility] MCV (RBC) [Entitic vol] 105.3 fL High 80.0 - 100.0 fL [facility] Monocytes (Bld) [#/Vol] 0.43 10*3/uL <0.87 k/uL [facility] Monocytes/100 WBC (Bld) 9.6 % [facility] Neutrophils (Bld) [#/Vol] 2.43 10*3/uL 1.45 - 7.50 k/uL [facility] Neutrophils/100 WBC (Bld) 53.9 % [facility] Nucleated RBC (Bld) [#/Vol] <0.01 k/uL [facility] Nucleated RBC/100 WBC (Bld) [Ratio] 0.0 /100 WBC [facility] Platelet mean volume (Bld) [Entitic vol] 9.2 fL 9.0 - 12.7 fL [facility] Platelets (Bld) [#/Vol] 221 10*3/uL 150 - 400 k/uL [facility] RBC (Bld) [#/Vol] 3.58 10*6/uL Low 3.90 - 5.2 0 m/uL [facility] WBC (Bld) [#/Vol] 4.50 10*3/uL 3.70 - 11. 00 k/uL [facility] Comprehensive metabolic 2000 panelon 05-06-2022 Albumin [Mass/Vol] 3.9 g/dL 3.9 - 4.9 g/dL [facility] ALP [Catalytic activity/Vol] 183 U/L High 34 - 123 U/L [facility] ALT [Catalytic activity/Vol] 18 U/L 7 - 38 U/L [facility] Anion gap [Moles/Vol] 6 mmol/L Low 9 - 18 mmol/L [facility] AST [Catalytic activity/Vol] 33 U/L 13 - 35 U/L [facility] Bilirubin [Mass/Vol] 0.4 mg/dL 0.2 - 1 .3 mg/dL [facility] Calcium [Mass/Vol] 9.3 mg/dL 8.5 - 10. 2 mg/dL [facility] Chloride [Moles/Vol] 106 mmol/L High 97 - 10 5 mmol/L [facility] CO2 [Moles/Vol] 28 mmol/L 22 - 30 mmol/L [facility] Creatinine [Mass/Vol] 0.87 mg/dL 0.58 - 0.96 mg/dL [facility] Estimated Glomerular Filtration Rate 73 mL/min/1.73m >=60 mL/min/1.73m [facility] Glucose [Mass/Vol] 112 mg/dL High 74 - 99 mg/dL [facility] Potassium [Moles/Vol] 3.6 mmol/L Low 3.7 - 5.1 mmol/L [facility] Protein [Mass/Vol] 6.0 g/dL Low 6.3 - 8.0 g/dL [facility] Sodium [Moles/Vol] 140 mmol/L 136 - 144 mmol/L [facility] Urea nitrogen [Mass/Vol] 14 mg/dL 7 - 21 mg/dL [facility] No Panel Informationon 04-26 [facility] CBC W Auto Differential pane l (Bld)on 04-14-2022 Basophils (Bld) [#/Vol] 0.05 10*3/uL <0.11 k/uL [facility] Basophils/100 WBC (Bld) 1.1 % [facility] Differential cell count method Nom (Bld) Auto [facility] Eosinophils (Bld) [#/Vol] 0.25 10*3/uL <0.46 k/uL [facility] Eosinophils/100 WBC (Bld) 5.4 % [facility] Erythrocyte distribution width (RBC) [Ratio] 14.8 % 11.5 - 15.0 % [facility] Hematocrit (Bld) [Volume fraction] 37.0 % 36.0 - 46.0 % [facility] Hemoglobin (Bld) [Mass/Vol] 12.3 g/dL 11.5 - 15.5 g/dL [facility] Immature granulocytes (Bld) [#/Vol] <0.10 k/uL [facility] Immature granulocytes/100 WBC (Bld) 0.2 % [facility] Lymphocytes (Bld) [#/Vol] 1.47 10*3/uL 1.00 - 4.00 k/uL [facility] Lymphocytes/100 WBC (Bld) 31.7 % [facility] MCH (RBC) [Entitic mass] 35.4 pg High 26.0 - 34.0 pg [facility] MCHC (RBC) [Mass/Vol] 33.2 g/dL 30.5 - 36.0 g/dL [facility] MCV (RBC) [Entitic vol] 106.6 fL High 80.0 - 100.0 fL [facility] Monocytes (Bld) [#/Vol] 0.52 10*3/uL <0.87 k/uL [facility] Monocytes/100 WBC (Bld) 11.2 % [facility] Neutrophils (Bld) [#/Vol] 2.33 10*3/uL 1.45 - 7.50 k/uL [facility] Neutrophils/100 WBC (Bld) 50.4 % [facility] Nucleated RBC (Bld) [#/Vol] <0.01 k/uL [facility] Nucleated RBC/100 WBC (Bld) [Ratio] 0.0 /100 WBC [facility] Platelet mean volume (Bld) [Entitic vol] 9.7 fL 9.0 - 12.7 fL [facility] Platelets (Bld) [#/Vol] 172 10*3/uL 150 - 400 k/uL [facility] RBC (Bld) [#/Vol] 3.47 10*6/uL Low 3.90 - 5.2 0 m/uL [facility] WBC (Bld) [#/Vol] 4.63 10*3/uL 3.70 - 11. 00 k/uL [facility] Comprehensive metabolic 2000 panelon 04-14-2022 Albumin [Mass/Vol] 3.7 g/dL Low 3.9 - 4.9 g/dL [facility] ALP [Catalytic activity/Vol] 168 U/L High 34 - 123 U/L [facility] ALT [Catalytic activity/Vol] 18 U/L 7 - 38 U/L [facility] Anion gap [Moles/Vol] 8 mmol/L Low 9 - 18 mmol/L [facility] AST [Catalytic activity/Vol] 34 U/L 13 - 35 U/L [facility] Bilirubin [Mass/Vol] 0.3 mg/dL 0.2 - 1 .3 mg/dL [facility] Calcium [Mass/Vol] 9.1 mg/dL 8.5 - 10. 2 mg/dL [facility] Chloride [Moles/Vol] 107 mmol/L High 97 - 10 5 mmol/L [facility] CO2 [Moles/Vol] 27 mmol/L 22 - 30 mmol/L [facility] Creatinine [Mass/Vol] 0.88 mg/dL 0.58 - 0.96 mg/dL [facility] Estimated Glomerular Filtration Rate 72 mL/min/1.73m >=60 mL/min/1.73m [facility] Glucose [Mass/Vol] 99 mg/dL 74 - 99 mg/dL [facility] Potassium [Moles/Vol] 3.7 mmol/L 3.7 - 5.1 mmol/L [facility] Protein [Mass/Vol] 5.8 g/dL Low 6.3 - 8.0 g/dL [facility] Sodium [Moles/Vol] 142 mmol/L 136 - 144 mmol/L [facility] Urea nitrogen [Mass/Vol] 13 mg/dL 7 - 21 mg/dL [facility] CBC W Auto Differential pane l (Bld)on 03-18-2022 Abs Immature Gran <0.10 k/uL [facility] Basophils (Bld) [#/Vol] 0.03 10*3/uL <0.11 k/uL [facility] Basophils/100 WBC (Bld) 0.7 % [facility] Differential cell count method Nom (Bld) Auto [facility] Eosinophils (Bld) [#/Vol] 0.24 10*3/uL <0.46 k/uL [facility] Eosinophils/100 WBC (Bld) 5.6 % [facility] Erythrocyte distribution width (RBC) [Ratio] 15.2 % High 11.5 - 15.0 % [facility] Hematocrit (Bld) [Volume fraction] 36.3 % 36.0 - 46.0 % [facility] Hemoglobin (Bld) [Mass/Vol] 12.1 g/dL 11.5 - 15.5 g/dL [facility] Immature Gran % 0.2 % [facility] Lymphocytes (Bld) [#/Vol] 1.26 10*3/uL 1.00 - 4.00 k/uL [facility] Lymphocytes/100 WBC (Bld) 29.4 % [facility] MCH (RBC) [Entitic mass] 35.6 pg High 26.0 - 34.0 pg [facility] MCHC (RBC) [Mass/Vol] 33.3 g/dL 30.5 - 36.0 g/dL [facility] MCV (RBC) [Entitic vol] 106.8 fL High 80.0 - 100.0 fL [facility] Monocytes (Bld) [#/Vol] 0.53 10*3/uL <0.87 k/uL [facility] Monocytes/100 WBC (Bld) 12.4 % [facility] Neutrophils (Bld) [#/Vol] 2.22 10*3/uL 1.45 - 7.50 k/uL [facility] Neutrophils/100 WBC (Bld) 51.7 % [facility] Nucleated RBC (Bld) [#/Vol] <0.01 k/uL [facility] Nucleated RBC/100 WBC (Bld) [Ratio] 0.0 /100 WBC [facility] Platelet mean volume (Bld) [Entitic vol] 9.5 fL 9.0 - 12.7 fL [facility] Platelets (Bld) [#/Vol] 195 10*3/uL 150 - 400 k/uL [facility] RBC (Bld) [#/Vol] 3.40 10*6/uL Low 3.90 - 5.2 0 m/uL [facility] WBC (Bld) [#/Vol] 4.29 10*3/uL 3.70 - 11. 00 k/uL [facility] Comprehensive metabolic 2000 panelon 03-18-2022 Albumin [Mass/Vol] 3.8 g/dL Low 3.9 - 4.9 g/dL [facility] ALP [Catalytic activity/Vol] 188 U/L High 34 - 123 U/L [facility] ALT [Catalytic activity/Vol] 23 U/L 7 - 38 U/L [facility] Anion gap [Moles/Vol] 8 mmol/L Low 9 - 18 mmol/L [facility] AST [Catalytic activity/Vol] 38 U/L High 13 - 35 U/L [facility] Bilirubin [Mass/Vol] 0.3 mg/dL 0.2 - 1 .3 mg/dL [facility] Calcium [Mass/Vol] 9.2 mg/dL 8.5 - 10. 2 mg/dL [facility] Chloride [Moles/Vol] 107 mmol/L High 97 - 10 5 mmol/L [facility] CO2 [Moles/Vol] 26 mmol/L 22 - 30 mmol/L [facility] Creatinine [Mass/Vol] 0.85 mg/dL 0.58 - 0.96 mg/dL [facility] Estimated Glomerular Filtration Rate 75 mL/min/1.73m >=60 mL/min/1.73m [facility] Glucose [Mass/Vol] 96 mg/dL 74 - 99 mg/dL [facility] Potassium [Moles/Vol] 4.0 mmol/L 3.7 - 5.1 mmol/L [facility] Protein [Mass/Vol] 5.8 g/dL Low 6.3 - 8.0 g/dL [facility] Sodium [Moles/Vol] 141 mmol/L 136 - 144 mmol/L [facility] Urea nitrogen [Mass/Vol] 11 mg/dL 7 - 21 mg/dL [facility] CBC W Auto Differential pane l (Bld)on 02-24-2022 Abs Immature Gran <0.10 k/uL [facility] Basophils (Bld) [#/Vol] <0.11 k/uL [facility] Basophils/100 WBC (Bld) 0.5 % [facility] Differential cell count method Nom (Bld) Auto [facility] Eosinophils (Bld) [#/Vol] 0.26 10*3/uL <0.46 k/uL [facility] Eosinophils/100 WBC (Bld) 6.1 % [facility] Erythrocyte distribution width (RBC) [Ratio] 15.1 % High 11.5 - 15.0 % [facility] Hematocrit (Bld) [Volume fraction] 35.4 % Low 36.0 - 46.0 % [facility] Hemoglobin (Bld) [Mass/Vol] 12.1 g/dL 11.5 - 15.5 g/dL [facility] Immature Gran % 0.0 % [facility] Lymphocytes (Bld) [#/Vol] 1.59 10*3/uL 1.00 - 4.00 k/uL [facility] Lymphocytes/100 WBC (Bld) 37.2 % [facility] MCH (RBC) [Entitic mass] 35.8 pg High 26.0 - 34.0 pg [facility] MCHC (RBC) [Mass/Vol] 34.2 g/dL 30.5 - 36.0 g/dL [facility] MCV (RBC) [Entitic vol] 104.7 fL High 80.0 - 100.0 fL [facility] Monocytes (Bld) [#/Vol] 0.47 10*3/uL <0.87 k/uL [facility] Monocytes/100 WBC (Bld) 11.0 % [facility] Neutrophils (Bld) [#/Vol] 1.93 10*3/uL 1.45 - 7.50 k/uL [facility] Neutrophils/100 WBC (Bld) 45.2 % [facility] Nucleated RBC (Bld) [#/Vol] <0.01 k/uL [facility] Nucleated RBC/100 WBC (Bld) [Ratio] 0.0 /100 WBC [facility] Platelet mean volume (Bld) [Entitic vol] 9.2 fL 9.0 - 12.7 fL [facility] Platelets (Bld) [#/Vol] 204 10*3/uL 150 - 400 k/uL [facility] RBC (Bld) [#/Vol] 3.38 10*6/uL Low 3.90 - 5.2 0 m/uL [facility] WBC (Bld) [#/Vol] 4.27 10*3/uL 3.70 - 11. 00 k/uL [facility] Comprehensive metabolic 2000 panelon 02-24-2022 Albumin [Mass/Vol] 3.7 g/dL Low 3.9 - 4.9 g/dL [facility] ALP [Catalytic activity/Vol] 177 U/L High 34 - 123 U/L [facility] ALT [Catalytic activity/Vol] 20 U/L 7 - 38 U/L [facility] Anion gap [Moles/Vol] 9 mmol/L 9 - 18 mmol/L [facility] AST [Catalytic activity/Vol] 32 U/L 13 - 35 U/L [facility] Bilirubin [Mass/Vol] 0.3 mg/dL 0.2 - 1 .3 mg/dL [facility] Calcium [Mass/Vol] 9.5 mg/dL 8.5 - 10. 2 mg/dL [facility] Chloride [Moles/Vol] 105 mmol/L 97 - 10 5 mmol/L [facility] CO2 [Moles/Vol] 27 mmol/L 22 - 30 mmol/L [facility] Creatinine [Mass/Vol] 0.91 mg/dL 0.58 - 0.96 mg/dL [facility] Estimated Glomerular Filtration Rate 69 mL/min/1.73m >=60 mL/min/1.73m [facility] Glucose [Mass/Vol] 102 mg/dL High 74 - 99 mg/dL [facility] Potassium [Moles/Vol] 3.7 mmol/L 3.7 - 5.1 mmol/L [facility] Protein [Mass/Vol] 5.8 g/dL Low 6.3 - 8.0 g/dL [facility] Sodium [Moles/Vol] 141 mmol/L 136 - 144 mmol/L [facility] Urea nitrogen [Mass/Vol] 10 mg/dL 7 - 21 mg/dL [facility] CBC W Auto Differential pane l (Bld)on 02-03-2022 Abs Immature Gran <0.10 k/uL [facility] Basophils (Bld) [#/Vol] <0.11 k/uL [facility] Basophils/100 WBC (Bld) 0.5 % [facility] Differential cell count method Nom (Bld) Auto [facility] Eosinophils (Bld) [#/Vol] 0.26 10*3/uL <0.46 k/uL [facility] Eosinophils/100 WBC (Bld) 5.9 % [facility] Erythrocyte distribution width (RBC) [Ratio] 14.9 % 11.5 - 15.0 % [facility] Hematocrit (Bld) [Volume fraction] 35.8 % Low 36.0 - 46.0 % [facility] Hemoglobin (Bld) [Mass/Vol] 12.0 g/dL 11.5 - 15.5 g/dL [facility] Immature Gran % 0.2 % [facility] Lymphocytes (Bld) [#/Vol] 1.50 10*3/uL 1.00 - 4.00 k/uL [facility] Lymphocytes/100 WBC (Bld) 34.0 % [facility] MCH (RBC) [Entitic mass] 34.9 pg High 26.0 - 34.0 pg [facility] MCHC (RBC) [Mass/Vol] 33.5 g/dL 30.5 - 36.0 g/dL [facility] MCV (RBC) [Entitic vol] 104.1 fL High 80.0 - 100.0 fL [facility] Monocytes (Bld) [#/Vol] 0.51 10*3/uL <0.87 k/uL [facility] Monocytes/100 WBC (Bld) 11.6 % [facility] Neutrophils (Bld) [#/Vol] 2.11 10*3/uL 1.45 - 7.50 k/uL [facility] Neutrophils/100 WBC (Bld) 47.8 % [facility] Nucleated RBC (Bld) [#/Vol] <0.01 k/uL [facility] Nucleated RBC/100 WBC (Bld) [Ratio] 0.0 /100 WBC [facility] Platelet mean volume (Bld) [Entitic vol] 9.4 fL 9.0 - 12.7 fL [facility] Platelets (Bld) [#/Vol] 228 10*3/uL 150 - 400 k/uL [facility] RBC (Bld) [#/Vol] 3.44 10*6/uL Low 3.90 - 5.2 0 m/uL [facility] WBC (Bld) [#/Vol] 4.41 10*3/uL 3.70 - 11. 00 k/uL [facility] Comprehensive metabolic 2000 panelon 02-03-2022 Albumin [Mass/Vol] 3.7 g/dL Low 3.9 - 4.9 g/dL [facility] ALP [Catalytic activity/Vol] 186 U/L High 34 - 123 U/L [facility] ALT [Catalytic activity/Vol] 19 U/L 7 - 38 U/L [facility] Anion gap [Moles/Vol] 11 mmol/L 9 - 18 mmol/L [facility] AST [Catalytic activity/Vol] 32 U/L 13 - 35 U/L [facility] Bilirubin [Mass/Vol] 0.3 mg/dL 0.2 - 1 .3 mg/dL [facility] Calcium [Mass/Vol] 9.3 mg/dL 8.5 - 10. 2 mg/dL [facility] Chloride [Moles/Vol] 105 mmol/L 97 - 10 5 mmol/L [facility] CO2 [Moles/Vol] 24 mmol/L 22 - 30 mmol/L [facility] Creatinine [Mass/Vol] 0.93 mg/dL 0.58 - 0.96 mg/dL [facility] Estimated Glomerular Filtration Rate 67 mL/min/1.73m >=60 mL/min/1.73m [facility] Glucose [Mass/Vol] 100 mg/dL High 74 - 99 mg/dL [facility] Potassium [Moles/Vol] 3.8 mmol/L 3.7 - 5.1 mmol/L [facility] Protein [Mass/Vol] 6.0 g/dL Low 6.3 - 8.0 g/dL [facility] Sodium [Moles/Vol] 140 mmol/L 136 - 144 mmol/L [facility] Urea nitrogen [Mass/Vol] 12 mg/dL 7 - 21 mg/dL [facility] CBC W Auto Differential pane l (Bld)on 01-07-2022 Abs Immature Gran 0.03 k/uL <0.10 k/uL [facility] Basophils (Bld) [#/Vol] 0.03 10*3/uL <0.11 k/uL [facility] Basophils/100 WBC (Bld) 0.3 % [facility] Differential cell count method Nom (Bld) Auto [facility] Eosinophils (Bld) [#/Vol] 0.20 10*3/uL <0.46 k/uL [facility] Eosinophils/100 WBC (Bld) 2.3 % [facility] Erythrocyte distribution width (RBC) [Ratio] 15.2 % High 11.5 - 15.0 % [facility] Hematocrit (Bld) [Volume fraction] 33.9 % Low 36.0 - 46.0 % [facility] Hemoglobin (Bld) [Mass/Vol] 11.6 g/dL 11.5 - 15.5 g/dL [facility] Immature Gran % 0.3 % [facility] Lymphocytes (Bld) [#/Vol] 1.17 10*3/uL 1.00 - 4.00 k/uL [facility] Lymphocytes/100 WBC (Bld) 13.4 % [facility] MCH (RBC) [Entitic mass] 35.3 pg High 26.0 - 34.0 pg [facility] MCHC (RBC) [Mass/Vol] 34.2 g/dL 30.5 - 36.0 g/dL [facility] MCV (RBC) [Entitic vol] 103.0 fL High 80.0 - 100.0 fL [facility] Monocytes (Bld) [#/Vol] 0.45 10*3/uL <0.87 k/uL [facility] Monocytes/100 WBC (Bld) 5.2 % [facility] Neutrophils (Bld) [#/Vol] 6.83 10*3/uL 1.45 - 7.50 k/uL [facility] Neutrophils/100 WBC (Bld) 78.5 % [facility] Nucleated RBC (Bld) [#/Vol] 10*3/uL <0.01 k/uL [facility] Nucleated RBC/100 WBC (Bld) [Ratio] 0.0 /100 WBC [facility] Platelet mean volume (Bld) [Entitic vol] 9.3 fL 9.0 - 12.7 fL [facility] Platelets (Bld) [#/Vol] 198 10*3/uL 150 - 400 k/uL [facility] RBC (Bld) [#/Vol] 3.29 10*6/uL Low 3.90 - 5.2 0 m/uL [facility] WBC (Bld) [#/Vol] 8.71 10*3/uL 3.70 - 11. 00 k/uL [facility] Comprehensive metabolic 2000 panelon 01-07-2022 Albumin [Mass/Vol] 3.7 g/dL Low 3.9 - 4.9 g/dL [facility] ALP [Catalytic activity/Vol] 182 U/L High 34 - 123 U/L [facility] ALT [Catalytic activity/Vol] 23 U/L 7 - 38 U/L [facility] Anion gap [Moles/Vol] 11 mmol/L 9 - 18 mmol/L [facility] AST [Catalytic activity/Vol] 35 U/L 13 - 35 U/L [facility] Bilirubin [Mass/Vol] 0.4 mg/dL 0.2 - 1 .3 mg/dL [facility] Calcium [Mass/Vol] 8.5 mg/dL 8.5 - 10. 2 mg/dL [facility] Chloride [Moles/Vol] 107 mmol/L High 97 - 10 5 mmol/L [facility] CO2 [Moles/Vol] 22 mmol/L 22 - 30 mmol/L [facility] Creatinine [Mass/Vol] 1.04 mg/dL High 0.58 - 0.96 mg/dL [facility] Estimated Glomerular Filtration Rate 59 mL/min/1.73m Low >=60 mL/min/1.73m [facility] Glucose [Mass/Vol] 99 mg/dL 74 - 99 mg/dL [facility] Potassium [Moles/Vol] 4.2 mmol/L 3.7 - 5.1 mmol/L [facility] Protein [Mass/Vol] 6.0 g/dL Low 6.3 - 8.0 g/dL [facility] Sodium [Moles/Vol] 140 mmol/L 136 - 144 mmol/L [facility] Urea nitrogen [Mass/Vol] 13 mg/dL 7 - 21 mg/dL [facility] CBC W Auto Differential pane l (Bld)on 12-23-2021 Abs Immature Gran <0.03 <0.10 k/uL [facility] Basophils (Bld) [#/Vol] 0.04 10*3/uL <0.11 k/uL [facility] Basophils/100 WBC (Bld) 1.1 % [facility] Differential cell count method Nom (Bld) Auto [facility] Eosinophils (Bld) [#/Vol] 0.26 10*3/uL <0.46 k/uL [facility] Eosinophils/100 WBC (Bld) 6.9 % [facility] Erythrocyte distribution width (RBC) [Ratio] 16.2 % High 11.5 - 15.0 % [facility] Hematocrit (Bld) [Volume fraction] 34.1 % Low 36.0 - 46.0 % [facility] Hemoglobin (Bld) [Mass/Vol] 11.5 g/dL 11.5 - 15.5 g/dL [facility] Immature Gran % 0.3 % [facility] Lymphocytes (Bld) [#/Vol] 1.22 10*3/uL 1.00 - 4.00 k/uL [facility] [facility] Lymphocytes/100 WBC (Bld) 32.4 % [facility] MCH (RBC) [Entitic mass] 34.7 pg High 26.0 - 34.0 pg [facility] MCHC (RBC) [Mass/Vol] 33.7 g/dL 30.5 - 36.0 g/dL [facility] MCV (RBC) [Entitic vol] 103.0 fL High 80.0 - 100.0 fL [facility] Monocytes (Bld) [#/Vol] 0.43 10*3/uL <0.87 k/uL [facility] Monocytes/100 WBC (Bld) 11.4 % [facility] Neutrophils (Bld) [#/Vol] 1.80 10*3/uL 1.45 - 7.50 k/uL [facility] Neutrophils/100 WBC (Bld) 47.9 % [facility] Nucleated RBC (Bld) [#/Vol] 10*3/uL <0.01 k/uL [facility] Nucleated RBC/100 WBC (Bld) [Ratio] 0.0 /100 WBC [facility] Platelet mean volume (Bld) [Entitic vol] 9.5 fL 9.0 - 12.7 fL [facility] Platelets (Bld) [#/Vol] 209 10*3/uL 150 - 400 k/uL [facility] RBC (Bld) [#/Vol] 3.31 10*6/uL Low 3.90 - 5.2 0 m/uL [facility] WBC (Bld) [#/Vol] 3.76 10*3/uL 3.70 - 11. 00 k/uL [facility] Comprehensive metabolic 2000 panelon 12-23-2021 Albumin [Mass/Vol] 3.7 g/dL Low 3.9 - 4.9 g/dL [facility] ALP [Catalytic activity/Vol] 144 U/L High 34 - 123 U/L [facility] ALT [Catalytic activity/Vol] 20 U/L 7 - 38 U/L [facility] Anion gap [Moles/Vol] 9 mmol/L 9 - 18 mmol/L [facility] AST [Catalytic activity/Vol] 35 U/L 13 - 35 U/L [facility] Bilirubin [Mass/Vol] 0.2 mg/dL 0.2 - 1 .3 mg/dL [facility] Calcium [Mass/Vol] 9.5 mg/dL 8.5 - 10. 2 mg/dL [facility] Chloride [Moles/Vol] 108 mmol/L High 97 - 10 5 mmol/L [facility] CO2 [Moles/Vol] 25 mmol/L 22 - 30 mmol/L [facility] Creatinine [Mass/Vol] 0.93 mg/dL 0.58 - 0.96 mg/dL [facility] Estimated Glomerular Filtration Rate 67 mL/min/1.73m >=60 mL/min/1.73m [facility] Glucose [Mass/Vol] 91 mg/dL 74 - 99 mg/dL [facility] Potassium [Moles/Vol] 4.3 mmol/L 3.7 - 5.1 mmol/L [facility] Protein [Mass/Vol] 6.1 g/dL Low 6.3 - 8.0 g/dL [facility] Sodium [Moles/Vol] 142 mmol/L 136 - 144 mmol/L [facility] Urea nitrogen [Mass/Vol] 12 mg/dL 7 - 21 mg/dL [facility] CBC W Auto Differential pane l (Bld)on 12-02-2021 Abs Immature Gran <0.03 <0.10 k/uL [facility] Basophils (Bld) [#/Vol] 0.03 10*3/uL <0.11 k/uL [facility] Basophils/100 WBC (Bld) 0.8 % [facility] Differential cell count method Nom (Bld) Auto [facility] Eosinophils (Bld) [#/Vol] 0.30 10*3/uL <0.46 k/uL [facility] Eosinophils/100 WBC (Bld) 7.5 % [facility] Erythrocyte distribution width (RBC) [Ratio] 17.7 % High 11.5 - 15.0 % [facility] Hematocrit (Bld) [Volume fraction] 35.5 % Low 36.0 - 46.0 % [facility] Hemoglobin (Bld) [Mass/Vol] 12.0 g/dL 11.5 - 15.5 g/dL [facility] Immature Gran % 0.0 % [facility] Lymphocytes (Bld) [#/Vol] 1.26 10*3/uL 1.00 - 4.00 k/uL [facility] Lymphocytes/100 WBC (Bld) 31.7 % [facility] MCH (RBC) [Entitic mass] 34.3 pg High 26.0 - 34.0 pg [facility] MCHC (RBC) [Mass/Vol] 33.8 g/dL 30.5 - 36.0 g/dL [facility] MCV (RBC) [Entitic vol] 101.4 fL High 80.0 - 100.0 fL [facility] Monocytes (Bld) [#/Vol] 0.44 10*3/uL <0.87 k/uL [facility] Monocytes/100 WBC (Bld) 11.1 % [facility] Neutrophils (Bld) [#/Vol] 1.95 10*3/uL 1.45 - 7.50 k/uL [facility] Neutrophils/100 WBC (Bld) 48.9 % [facility] Nucleated RBC (Bld) [#/Vol] 10*3/uL <0.01 k/uL [facility] Nucleated RBC/100 WBC (Bld) [Ratio] 0.0 /100 WBC [facility] Platelet mean volume (Bld) [Entitic vol] 9.5 fL 9.0 - 12.7 fL [facility] Platelets (Bld) [#/Vol] 223 10*3/uL 150 - 400 k/uL [facility] RBC (Bld) [#/Vol] 3.50 10*6/uL Low 3.90 - 5.2 0 m/uL [facility] WBC (Bld) [#/Vol] 3.98 10*3/uL 3.70 - 11. 00 k/uL [facility] Comprehensive metabolic 2000 panelon 12-02-2021 Albumin [Mass/Vol] 3.8 g/dL Low 3.9 - 4.9 g/dL [facility] ALP [Catalytic activity/Vol] 140 U/L High 34 - 123 U/L [facility] ALT [Catalytic activity/Vol] 21 U/L 7 - 38 U/L [facility] Anion gap [Moles/Vol] 10 mmol/L 9 - 18 mmol/L [facility] AST [Catalytic activity/Vol] 36 U/L High 13 - 35 U/L [facility] Bilirubin [Mass/Vol] 0.3 mg/dL 0.2 - 1 .3 mg/dL [facility] Calcium [Mass/Vol] 8.7 mg/dL 8.5 - 10. 2 mg/dL [facility] Chloride [Moles/Vol] 106 mmol/L High 97 - 10 5 mmol/L [facility] CO2 [Moles/Vol] 25 mmol/L 22 - 30 mmol/L [facility] Creatinine [Mass/Vol] 0.92 mg/dL 0.58 - 0.96 mg/dL [facility] Estimated Glomerular Filtration Rate 68 mL/min/1.73m >=60 mL/min/1.73m [facility] Glucose [Mass/Vol] 96 mg/dL 74 - 99 mg/dL [facility] Potassium [Moles/Vol] 3.8 mmol/L 3.7 - 5.1 mmol/L [facility] Protein [Mass/Vol] 6.0 g/dL Low 6.3 - 8.0 g/dL [facility] Sodium [Moles/Vol] 141 mmol/L 136 - 144 mmol/L [facility] Urea nitrogen [Mass/Vol] 10 mg/dL 7 - 21 mg/dL [facility] CBC W Auto Differential pane l (Bld)on 11-06-2021 Abs Immature Gran <0.03 <0.10 k/uL [facility] Basophils (Bld) [#/Vol] 0.03 10*3/uL <0.11 k/uL [facility] Basophils/100 WBC (Bld) 0.6 % [facility] Differential cell count method Nom (Bld) Auto [facility] Eosinophils (Bld) [#/Vol] 0.35 10*3/uL <0.46 k/uL [facility] Eosinophils/100 WBC (Bld) 6.7 % [facility] Erythrocyte distribution width (RBC) [Ratio] 18.0 % High 11.5 - 15.0 % [facility] Hematocrit (Bld) [Volume fraction] 33.8 % Low 36.0 - 46.0 % [facility] Hemoglobin (Bld) [Mass/Vol] 11.1 g/dL Low 11.5 - 15.5 g/dL [facility] Immature Gran % 0.2 % [facility] Lymphocytes (Bld) [#/Vol] 1.55 10*3/uL 1.00 - 4.00 k/uL [facility] Lymphocytes/100 WBC (Bld) 29.8 % [facility] MCH (RBC) [Entitic mass] 32.1 pg 26.0 - 34.0 pg [facility] MCHC (RBC) [Mass/Vol] 32.8 g/dL 30.5 - 36.0 g/dL [facility] MCV (RBC) [Entitic vol] 97.7 fL 80.0 - 100.0 fL [facility] Monocytes (Bld) [#/Vol] 0.37 10*3/uL <0.87 k/uL [facility] Monocytes/100 WBC (Bld) 7.1 % [facility] Neutrophils (Bld) [#/Vol] 2.90 10*3/uL 1.45 - 7.50 k/uL [facility] Neutrophils/100 WBC (Bld) 55.6 % [facility] Nucleated RBC (Bld) [#/Vol] 10*3/uL <0.01 k/uL [facility] Nucleated RBC/100 WBC (Bld) [Ratio] 0.0 /100 WBC [facility] Platelet mean volume (Bld) [Entitic vol] 9.4 fL 9.0 - 12.7 fL [facility] Platelets (Bld) [#/Vol] 229 10*3/uL 150 - 400 k/uL [facility] RBC (Bld) [#/Vol] 3.46 10*6/uL Low 3.90 - 5.2 0 m/uL [facility] WBC (Bld) [#/Vol] 5.21 10*3/uL 3.70 - 11. 00 k/uL [facility] Comprehensive metabolic 2000 panelon 11-06-2021 Albumin [Mass/Vol] 3.7 g/dL Low 3.9 - 4.9 g/dL [facility] ALP [Catalytic activity/Vol] 144 U/L High 34 - 123 U/L [facility] ALT [Catalytic activity/Vol] 20 U/L 7 - 38 U/L [facility] Anion gap [Moles/Vol] 7 mmol/L Low 9 - 18 mmol/L [facility] AST [Catalytic activity/Vol] 35 U/L 13 - 35 U/L [facility] Bilirubin [Mass/Vol] 0.3 mg/dL 0.2 - 1 .3 mg/dL [facility] Calcium [Mass/Vol] 8.8 mg/dL 8.5 - 10. 2 mg/dL [facility] Chloride [Moles/Vol] 107 mmol/L High 97 - 10 5 mmol/L [facility] CO2 [Moles/Vol] 25 mmol/L 22 - 30 mmol/L [facility] Creatinine [Mass/Vol] 0.93 mg/dL 0.58 - 0.96 mg/dL [facility] Estimated Glomerular Filtration Rate 67 mL/min/1.73m >=60 mL/min/1.73m [facility] Glucose [Mass/Vol] 95 mg/dL 74 - 99 mg/dL [facility] Potassium [Moles/Vol] 4.0 mmol/L 3.7 - 5.1 mmol/L [facility] Protein [Mass/Vol] 6.2 g/dL Low 6.3 - 8.0 g/dL [facility] Sodium [Moles/Vol] 139 mmol/L 136 - 144 mmol/L [facility] Urea nitrogen [Mass/Vol] 9 mg/dL 7 - 21 mg/dL [facility] No Panel Informationon 11-06 [facility] CBC W Auto Differential pane l (Bld)on 10-21-2021 Abs Immature Gran <0.03 <0.10 k/uL [facility] Basophils (Bld) [#/Vol] 0.04 10*3/uL <0.11 k/uL [facility] Basophils/100 WBC (Bld) 0.8 % [facility] Differential cell count method Nom (Bld) Auto [facility] Eosinophils (Bld) [#/Vol] 0.51 10*3/uL High <0.46 k/uL [facility] Eosinophils/100 WBC (Bld) 10.7 % [facility] Erythrocyte distribution width (RBC) [Ratio] 17.4 % High 11.5 - 15.0 % [facility] Hematocrit (Bld) [Volume fraction] 33.4 % Low 36.0 - 46.0 % [facility] Hemoglobin (Bld) [Mass/Vol] 11.2 g/dL Low 11.5 - 15.5 g/dL [facility] Immature Gran % 0.2 % [facility] Lymphocytes (Bld) [#/Vol] 1.42 10*3/uL 1.00 - 4.00 k/uL [facility] Lymphocytes/100 WBC (Bld) 29.9 % [facility] MCH (RBC) [Entitic mass] 31.6 pg 26.0 - 34.0 pg [facility] MCHC (RBC) [Mass/Vol] 33.5 g/dL 30.5 - 36.0 g/dL [facility] MCV (RBC) [Entitic vol] 94.4 fL 80.0 - 100.0 fL [facility] Monocytes (Bld) [#/Vol] 0.45 10*3/uL <0.87 k/uL [facility] Monocytes/100 WBC (Bld) 9.5 % [facility] Neutrophils (Bld) [#/Vol] 2.32 10*3/uL 1.45 - 7.50 k/uL [facility] Neutrophils/100 WBC (Bld) 48.9 % [facility] Nucleated RBC (Bld) [#/Vol] 10*3/uL <0.01 k/uL [facility] Nucleated RBC/100 WBC (Bld) [Ratio] 0.0 /100 WBC [facility] Platelet mean volume (Bld) [Entitic vol] 9.5 fL 9.0 - 12.7 fL [facility] Platelets (Bld) [#/Vol] 240 10*3/uL 150 - 400 k/uL [facility] RBC (Bld) [#/Vol] 3.54 10*6/uL Low 3.90 - 5.2 0 m/uL [facility] WBC (Bld) [#/Vol] 4.75 10*3/uL 3.70 - 11. 00 k/uL [facility] Comprehensive metabolic 2000 panelon 10-21-2021 Albumin [Mass/Vol] 3.8 g/dL Low 3.9 - 4.9 g/dL [facility] ALP [Catalytic activity/Vol] 141 U/L High 34 - 123 U/L [facility] ALT [Catalytic activity/Vol] 18 U/L 7 - 38 U/L [facility] Anion gap [Moles/Vol] 10 mmol/L 9 - 18 mmol/L [facility] AST [Catalytic activity/Vol] 32 U/L 13 - 35 U/L [facility] Bilirubin [Mass/Vol] 0.3 mg/dL 0.2 - 1 .3 mg/dL [facility] Calcium [Mass/Vol] 9.1 mg/dL 8.5 - 10. 2 mg/dL [facility] Chloride [Moles/Vol] 106 mmol/L High 97 - 10 5 mmol/L [facility] CO2 [Moles/Vol] 24 mmol/L 22 - 30 mmol/L [facility] Creatinine [Mass/Vol] 0.91 mg/dL 0.58 - 0.96 mg/dL [facility] Estimated Glomerular Filtration Rate 69 mL/min/1.73m >=60 mL/min/1.73m [facility] Glucose [Mass/Vol] 110 mg/dL High 74 - 99 mg/dL [facility] Potassium [Moles/Vol] 4.0 mmol/L 3.7 - 5.1 mmol/L [facility] Protein [Mass/Vol] 6.4 g/dL 6.3 - 8.0 g/dL [facility] Sodium [Moles/Vol] 140 mmol/L 136 - 144 mmol/L [facility] Urea nitrogen [Mass/Vol] 9 mg/dL 7 - 21 mg/dL [facility] CBC W Auto Differential pane l (Bld)on 09-30-2021 Abs Immature Gran <0.03 <0.10 k/uL [facility] Basophils (Bld) [#/Vol] 0.04 10*3/uL <0.11 k/uL [facility] Basophils/100 WBC (Bld) 0.6 % [facility] Differential cell count method Nom (Bld) Auto [facility] Eosinophils (Bld) [#/Vol] 0.63 10*3/uL High <0.46 k/uL [facility] Eosinophils/100 WBC (Bld) 9.4 % [facility] Erythrocyte distribution width (RBC) [Ratio] 15.5 % High 11.5 - 15.0 % [facility] Hematocrit (Bld) [Volume fraction] 33.8 % Low 36.0 - 46.0 % [facility] Hemoglobin (Bld) [Mass/Vol] 11.0 g/dL Low 11.5 - 15.5 g/dL [facility] Immature Gran % 0.3 % [facility] Lymphocytes (Bld) [#/Vol] 1.14 10*3/uL 1.00 - 4.00 k/uL [facility] Lymphocytes/100 WBC (Bld) 17.0 % [facility] MCH (RBC) [Entitic mass] 30.3 pg 26.0 - 34.0 pg [facility] MCHC (RBC) [Mass/Vol] 32.5 g/dL 30.5 - 36.0 g/dL [facility] MCV (RBC) [Entitic vol] 93.1 fL 80.0 - 100.0 fL [facility] Monocytes (Bld) [#/Vol] 0.55 10*3/uL <0.87 k/uL [facility] Monocytes/100 WBC (Bld) 8.2 % [facility] Neutrophils (Bld) [#/Vol] 4.33 10*3/uL 1.45 - 7.50 k/uL [facility] Neutrophils/100 WBC (Bld) 64.5 % [facility] Nucleated RBC (Bld) [#/Vol] 10*3/uL <0.01 k/uL [facility] Nucleated RBC/100 WBC (Bld) [Ratio] 0.0 /100 WBC [facility] Platelet mean volume (Bld) [Entitic vol] 9.4 fL 9.0 - 12.7 fL [facility] Platelets (Bld) [#/Vol] 262 10*3/uL 150 - 400 k/uL [facility] RBC (Bld) [#/Vol] 3.63 10*6/uL Low 3.90 - 5.2 0 m/uL [facility] WBC (Bld) [#/Vol] 6.71 10*3/uL 3.70 - 11. 00 k/uL [facility] Comprehensive metabolic 2000 panelon 09-30-2021 Albumin [Mass/Vol] 3.5 g/dL Low 3.9 - 4.9 g/dL [facility] ALP [Catalytic activity/Vol] 170 U/L High 34 - 123 U/L [facility] ALT [Catalytic activity/Vol] 14 U/L 7 - 38 U/L [facility] Anion gap [Moles/Vol] 8 mmol/L Low 9 - 18 mmol/L [facility] AST [Catalytic activity/Vol] 25 U/L 13 - 35 U/L [facility] Bilirubin [Mass/Vol] 0.2 mg/dL 0.2 - 1 .3 mg/dL [facility] Calcium [Mass/Vol] 8.9 mg/dL 8.5 - 10. 2 mg/dL [facility] Chloride [Moles/Vol] 104 mmol/L 97 - 10 5 mmol/L [facility] CO2 [Moles/Vol] 27 mmol/L 22 - 30 mmol/L [facility] Creatinine [Mass/Vol] 1.25 mg/dL High 0.58 - 0.96 mg/dL [facility] Estimated Glomerular Filtration Rate 47 mL/min/1.73m Low >=60 mL/min/1.73m [facility] Glucose [Mass/Vol] 97 mg/dL 74 - 99 mg/dL [facility] Potassium [Moles/Vol] 3.9 mmol/L 3.7 - 5.1 mmol/L [facility] Protein [Mass/Vol] 6.0 g/dL Low 6.3 - 8.0 g/dL [facility] Sodium [Moles/Vol] 139 mmol/L 136 - 144 mmol/L [facility] Urea nitrogen [Mass/Vol] 20 mg/dL 7 - 21 mg/dL [facility] US THYROID/PARATHYROIDon [facility] CBC W Auto Differential pane l (Bld)on 09-02-2021 Abs Immature Gran <0.03 <0.10 k/uL [facility] Basophils (Bld) [#/Vol] 10*3/uL <0.11 k/uL [facility] Basophils/100 WBC (Bld) 0.4 % [facility] Differential cell count method Nom (Bld) Auto [facility] Eosinophils (Bld) [#/Vol] 0.26 10*3/uL <0.46 k/uL [facility] Eosinophils/100 WBC (Bld) 5.4 % [facility] Erythrocyte distribution width (RBC) [Ratio] 15.2 % High 11.5 - 15.0 % [facility] Hematocrit (Bld) [Volume fraction] 38.3 % 36.0 - 46.0 % [facility] Hemoglobin (Bld) [Mass/Vol] 12.3 g/dL 11.5 - 15.5 g/dL [facility] Immature Gran % 0.4 % [facility] Lymphocytes (Bld) [#/Vol] 1.29 10*3/uL 1.00 - 4.00 k/uL [facility] Lymphocytes/100 WBC (Bld) 26.9 % [facility] MCH (RBC) [Entitic mass] 29.9 pg 26.0 - 34.0 pg [facility] MCHC (RBC) [Mass/Vol] 32.1 g/dL 30.5 - 36.0 g/dL [facility] MCV (RBC) [Entitic vol] 93.0 fL 80.0 - 100.0 fL [facility] Monocytes (Bld) [#/Vol] 0.46 10*3/uL <0.87 k/uL [facility] Monocytes/100 WBC (Bld) 9.6 % [facility] Neutrophils (Bld) [#/Vol] 2.75 10*3/uL 1.45 - 7.50 k/uL [facility] Neutrophils/100 WBC (Bld) 57.3 % [facility] Nucleated RBC (Bld) [#/Vol] 10*3/uL <0.01 k/uL [facility] Nucleated RBC/100 WBC (Bld) [Ratio] 0.0 /100 WBC [facility] Platelet mean volume (Bld) [Entitic vol] 10.1 fL 9.0 - 12.7 fL [facility] Platelets (Bld) [#/Vol] 177 10*3/uL 150 - 400 k/uL [facility] RBC (Bld) [#/Vol] 4.12 10*6/uL 3.90 - 5.2 0 m/uL [facility] WBC (Bld) [#/Vol] 4.80 10*3/uL 3.70 - 11. 00 k/uL [facility] Comprehensive metabolic 2000 panelon 09-02-2021 Albumin [Mass/Vol] 3.7 g/dL Low 3.9 - 4.9 g/dL [facility] ALP [Catalytic activity/Vol] 127 U/L High 34 - 123 U/L [facility] ALT [Catalytic activity/Vol] 20 U/L 7 - 38 U/L [facility] Anion gap [Moles/Vol] 5 mmol/L Low 9 - 18 mmol/L [facility] AST [Catalytic activity/Vol] 37 U/L High 13 - 35 U/L [facility] Bilirubin [Mass/Vol] 0.2 mg/dL 0.2 - 1 .3 mg/dL [facility] Calcium [Mass/Vol] 9.0 mg/dL 8.5 - 10. 2 mg/dL [facility] Chloride [Moles/Vol] 106 mmol/L High 97 - 10 5 mmol/L [facility] CO2 [Moles/Vol] 28 mmol/L 22 - 30 mmol/L [facility] Creatinine [Mass/Vol] 0.96 mg/dL 0.58 - 0.96 mg/dL [facility] Estimated Glomerular Filtration Rate 65 mL/min/1.73m >=60 mL/min/1.73m [facility] Glucose [Mass/Vol] 102 mg/dL High 74 - 99 mg/dL [facility] Potassium [Moles/Vol] 3.9 mmol/L 3.7 - 5.1 mmol/L [facility] Protein [Mass/Vol] 5.7 g/dL Low 6.3 - 8.0 g/dL [facility] Sodium [Moles/Vol] 139 mmol/L 136 - 144 mmol/L [facility] Urea nitrogen [Mass/Vol] 16 mg/dL 7 - 21 mg/dL [facility] No Panel Informationon 08-25 [facility] External Other: Preferred Me thod of Contacton 12-01-2016 methcontact secmsg [facility] Work Phone: [phone] Patient's prefered method of contact secmsg Invalid Interpretation Code [facility] Work Phone: [phone] Office Visiton 12-01-2016 Documentation of current medications (procedure) Done Invalid Interpretation Code [facility] Work Phone: [phone] Fall risk assessment No Invalid Interpretation Code [facility] Work Phone: [phone] Protein mass conc Done [facility] Work Phone: [phone] Tobacco smoking status NHIS Never smoker [facility] Work Phone: [phone] Tobacco use CPHS Never smoker Invalid Interpretation Code [facility] Work Phone: [phone] Replaced Document: Susan JIMÉNEZ Observationson 12-01-2016 EKG QRS axis -31 deg [facility] Work Phone: [phone] electrocardiogram interpretation 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 ABNORMAL [facility] Work Phone: [phone] P Mobile 47 deg [facility] Work Phone: [phone] P wave axis, electrocardiogram 47 deg Invalid Interpretation Code [facility] 2,10E+07 Work Phone: [phone] ND Interval 190 ms [facility] Work Phone: [phone] ND interval, electrocardiogram 190 ms Invalid Interpretation Code [facility] Work Phone: [phone] Pulse (Heart Rate) 68 /min Invalid Interpretation Code [facility] 2,10E+07 Work Phone: [phone] QRS axis, electrocardiogram -31 deg Invalid Interpretation Code [facility] 2,10E+07 Work Phone: [phone] QRS Duration 86 ms [facility] Work Phone: [phone] QRS duration, electrocardiogram 86 ms Invalid Interpretation Code [facility] Work Phone: [phone] QT Interval new path ms [facility] Work Phone: [phone] QT interval, electrocardiogram new path ms Invalid Interpretation Code [facility] Work Phone: [phone] QTc [employer] 412 ms [facility] Work Phone: [phone] T Mobile 17 deg [facility] Work Phone: [phone] T wave axis, electrocardiogram 17 deg Invalid Interpretation Code [facility] Work Phone: [phone] 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 Left ventricular Ejection fraction 50 % Invalid Interpretation Code [facility] Work Phone: [phone] Vital Signs Date Time Vital Sign Value Performing Clinician Facility 12-13-2024 08:00-0400 Body temperature 97.81 [degF] [facility] Work Phone: [facility] 12-13-2024 08:00-0400 Diastolic blood pressure 68 mm[Hg] [facility] Work Phone: [facility] 12-13-2024 08:00-0400 Heart rate 64 /min [facility] Work Phone: [facility] 12-13-2024 08:00-0400 SaO2% (BldA) [Mass fraction] 97 % [facility] Work Phone: [facility] 12-13-2024 08:00-0400 Systolic blood pressure 129 mm[Hg] [facility] Work Phone: [facility] 12-12-2024 07:48-0400 Body temperature 97.39 [degF] [place] [employer] Work Phone: [facility] 12-12-2024 07:48-0400 Diastolic blood pressure 77 mm[Hg] [place] [employer] Work Phone: [facility] 12-12-2024 07:48-0400 Heart rate 62 /min [place] [employer] Work Phone: [facility] 12-12-2024 07:48-0400 SaO2% (BldA) [Mass fraction] 93 % Ca[place] [employer]ote [employer] Work Phone: [facility] 12-12-2024 07:48-0400 Systolic blood pressure 130 mm[Hg] Caity Cote [employer] Work Phone: [facility] 12-12-2024 07:00-0400 Body mass index (BMI) [Ratio] 31.88 kg/m2 [facility] Work Phone: [facility] 12-12-2024 07:00-0400 Body weight 78.47 kg [facility] Work Phone: [facility] 11-22-2024 09:00-0400 Body temperature 98.6 [degF] [facility] Work Phone: [facility] 11-22-2024 09:00-0400 Diastolic blood pressure 63 mm[Hg] [facility] Work Phone: [facility] 11-22-2024 09:00-0400 Heart rate 80 /min [facility] Work Phone: [facility] 11-22-2024 09:00-0400 SaO2% (BldA) [Mass fraction] 95 % [facility] Work Phone: [facility] 11-22-2024 09:00-0400 Systolic blood pressure 106 mm[Hg] [facility] Work Phone: [facility] 11-21-2024 08:58-0400 Body mass index (BMI) [Ratio] 31.51 kg/m2 Caity Cote [employer] Work Phone: [facility] 11-21-2024 08:58-0400 Body temperature 97.9 [degF] Caity Cote [employer] Work Phone: [facility] 11-21-2024 08:58-0400 Body weight 77.56 kg Caity Cote [employer] Work Phone: [facility] 11-21-2024 08:58-0400 Diastolic blood pressure 79 mm[Hg] Caity Cote [employer] Work Phone: [facility] 11-21-2024 08:58-0400 Heart rate 58 /min Caity Cote ELECTRONICS SPECIALIST[employer] Work Phone: [facility] 11-21-2024 08:58-0400 SaO2% (BldA) [Mass fraction] 95 % Caity Cote ELECTRONICS SPECIALIST.[employer] Work Phone: [facility] 11-21-2024 08:58-0400 Systolic blood pressure 123 mm[Hg] Caity Cote ELECTRONICS SPECIALIST.[employer] Work Phone: [facility] 11-21-2024 08:26-0400 Body mass index (BMI) [Ratio] 31.51 kg/m2 Lab/Port Wstr Work Phone: [facility] 11-21-2024 08:26-0400 Body weight 77.56 kg Lab/Port Wstr Work Phone: [facility] 11-01-2024 07:51-0400 Body temperature 97 [degF] Treatment Wstr Work Phone: [facility] 11-01-2024 07:51-0400 Diastolic blood pressure 72 mm[Hg] Treatment Wstr Work Phone: [facility] 11-01-2024 07:51-0400 Heart rate 65 /min Treatment Wstr Work Phone: [facility] 11-01-2024 07:51-0400 SaO2% (BldA) [Mass fraction] 94 % Treatment Wstr Work Phone: [facility] 11-01-2024 07:51-0400 Systolic blood pressure 94 mm[Hg] Treatment Wstr Work Phone: [facility] 10-31-2024 07:57-0400 Body temperature 98.4 [degF] [place] Cote ELECTRONICS SPECIALIST[employer] Work Phone: [facility] 10-31-2024 07:57-0400 Diastolic blood pressure 68 mm[Hg] Caity Cote ELECTRONICS SPECIALIST.[employer] Work Phone: [facility] 10-31-2024 07:57-0400 Heart rate 58 /min [place] Cote ELECTRONICS SPECIALIST.[employer] Work Phone: [facility] 10-31-2024 07:57-0400 Respiratory rate 15 /min [place] Cote ELECTRONICS SPECIALIST.[employer] Work Phone: [facility] 10-31-2024 07:57-0400 SaO2% (BldA) [Mass fraction] 97 % [place] Cote ELECTRONICS SPECIALIST.[employer] Work Phone: [facility] 10-31-2024 07:57-0400 Systolic blood pressure 122 mm[Hg] Caity Cote ELECTRONICS SPECIALIST.[employer] Work Phone: [facility] 10-31-2024 07:56-0400 Body mass index (BMI) [Ratio] 31.28 kg/m2 Caity Cote ELECTRONICS SPECIALIST.[employer] Work Phone: [facility] 10-31-2024 07:56-0400 Body weight 77 kg [place] Cote ELECTRONICS SPECIALIST[employer] Work Phone: [facility] 10-11-2024 07:43-0400 Body temperature 97.39 [degF] Treatment Wstr Work Phone: [facility] 10-11-2024 07:43-0400 Diastolic blood pressure 52 mm[Hg] Treatment Wstr Work Phone: [facility] 10-11-2024 07:43-0400 Heart rate 76 /min Treatment Wstr Work Phone: [facility] 10-11-2024 07:43-0400 SaO2% (BldA) [Mass fraction] 96 % Treatment Wstr Work Phone: [facility] 10-11-2024 07:43-0400 Systolic blood pressure 120 mm[Hg] Treatment Wstr Work Phone: [facility] 10-10-2024 09:21-0400 Body mass index (BMI) [Ratio] 31.64 kg/m2 [place] Cote ELECTRONICS SPECIALIST[employer] Work Phone: [facility] 10-10-2024 09:21-0400 Body temperature 98.4 [degF] Caity Cote ELECTRONICS SPECIALIST.[employer] Work Phone: [facility] 10-10-2024 09:21-0400 Body weight 77.9 kg Caity Maryenter ELECTRONICS SPECIALIST.[employer] Work Phone: [facility] 10-10-2024 09:21-0400 Diastolic blood pressure 82 mm[Hg] [place] Cote ELECTRONICS SPECIALIST.[employer] Work Phone: [facility] 10-10-2024 09:21-0400 Heart rate 77 /min [place] Cote ELECTRONICS SPECIALIST[employer] Work Phone: [facility] 10-10-2024 09:21-0400 SaO2% (BldA) [Mass fraction] 95 % Caity Cote ELECTRONICS SPECIALIST.[employer] Work Phone: [facility] 10-10-2024 09:21-0400 Systolic blood pressure 129 mm[Hg] Caity Cote ELECTRONICS SPECIALIST.[employer] Work Phone: [facility] 10-03-2024 10:39-0400 Body mass index (BMI) [Ratio] 31.78 kg/m2 Quita Hoff Work Phone: [facility] 10-03-2024 10:39-0400 Body temperature 98.71 [degF] Quita Hoff Work Phone: [facility] 10-03-2024 10:39-0400 Body weight 78.25 kg Quita Hoff Work Phone: [facility] 10-03-2024 10:39-0400 Diastolic blood pressure 84 mm[Hg] Quita Hoff Work Phone: [facility] 10-03-2024 10:39-0400 Heart rate 74 /min Quita Hoff Work Phone: [facility] 10-03-2024 10:39-0400 SaO2% (BldA) [Mass fraction] 96 % Quita Hoff Work Phone: [facility] 10-03-2024 10:39-0400 Systolic blood pressure 133 mm[Hg] Quita Hoff Work Phone: [facility] 10-03-2024 10:25-0400 Body mass index (BMI) [Ratio] 31.78 kg/m2 Lab/Port Wstr Work Phone: [facility] 10-03-2024 10:25-0400 Body weight 78.25 kg Lab/Port Wstr Work Phone: [facility] 2024 10:17-0400 Body mass index (BMI) [Ratio] 32.01 kg/m2 Isac Billingsley MD Work Phone: [facility] 2024 10:17-0400 Body weight 76.84 kg Isac Billingsley MD Work Phone: [facility] 2024 10:17-0400 Diastolic blood pressure 68 mm[Hg] Isac Billingsley MD Work Phone: [facility] 2024 10:17-0400 Heart rate 68 /min Isac Billingsley MD Work Phone: [facility] 2024 10:17-0400 SaO2% (BldA) [Mass fraction] 88 % Isac Billingsley MD Work Phone: [facility] 2024 10:17-0400 Systolic blood pressure 120 mm[Hg] Isac Billingsley MD Work Phone: [facility] 09-06-2024 14:00-0400 Body temperature 98.01 [degF] Treatment Wstr Work Phone: [facility] 09-06-2024 14:00-0400 Diastolic blood pressure 67 mm[Hg] Treatment Wstr Work Phone: [facility] 09-06-2024 14:00-0400 Heart rate 60 /min Treatment Wstr Work Phone: [facility] 09-06-2024 14:00-0400 Systolic blood pressure 106 mm[Hg] Treatment Wstr Work Phone: [facility] 09-05-2024 10:47-0400 Body mass index (BMI) [Ratio] 31.88 kg/m2 Lab/Port Wstr Work Phone: [facility] 09-05-2024 10:47-0400 Body temperature 97.59 [degF] Caity Cote ELECTRONICS SPECIALIST.[employer] Work Phone: [facility] 09-05-2024 10:47-0400 Body weight 78.47 kg Lab/Port Wstr Work Phone: [facility] 09-05-2024 10:47-0400 Diastolic blood pressure 80 mm[Hg] Caity Cote ELECTRONICS SPECIALIST.[employer] Work Phone: [facility] 09-05-2024 10:47-0400 Heart rate 54 /min Caity Cote ELECTRONICS SPECIALIST.[employer] Work Phone: [facility] 09-05-2024 10:47-0400 SaO2% (BldA) [Mass fraction] 96 % Caity Cote ELECTRONICS SPECIALIST.[employer] Work Phone: [facility] 09-05-2024 10:47-0400 Systolic blood pressure 146 mm[Hg] Caity Cote ELECTRONICS SPECIALIST.[employer] Work Phone: [facility] 08-16-2024 14:00-0400 Body mass index (BMI) [Ratio] 32.15 kg/m2 Treatment Wstr Work Phone: [facility] 08-16-2024 14:00-0400 Body temperature 98.1 [degF] Treatment Wstr Work Phone: [facility] 08-16-2024 14:00-0400 Body weight 79.15 kg Treatment Wstr Work Phone: [facility] 08-16-2024 14:00-0400 Diastolic blood pressure 61 mm[Hg] Treatment Wstr Work Phone: [facility] 08-16-2024 14:00-0400 Heart rate 59 /min Treatment Wstr Work Phone: [facility] 08-16-2024 14:00-0400 SaO2% (BldA) [Mass fraction] 95 % Treatment Wstr Work Phone: [facility] 08-16-2024 14:00-0400 Systolic blood pressure 125 mm[Hg] Treatment Wstr Work Phone: [facility] 08-15-2024 11:04-0400 Body mass index (BMI) [Ratio] 32.34 kg/m2 Rip Masci DO Work Phone: [facility] 08-15-2024 11:04-0400 Body temperature 98.2 [degF] Rip Masci DO Work Phone: [facility] 08-15-2024 11:04-0400 Body weight 79.61 kg Rip Masci DO Work Phone: [facility] 08-15-2024 11:04-0400 Diastolic blood pressure 75 mm[Hg] Rip Masci DO Work Phone: [facility] 08-15-2024 11:04-0400 Heart rate 68 /min Rip Masci DO Work Phone: [facility] 08-15-2024 11:04-0400 SaO2% (BldA) [Mass fraction] 98 % Rip Masci DO Work Phone: [facility] 08-15-2024 11:04-0400 Systolic blood pressure 129 mm[Hg] Rip Masci DO Work Phone: [facility] 08-15-2024 10:55-0400 Body mass index (BMI) [Ratio] 32.34 kg/m2 Lab/Port Wstr Work Phone: [facility] 08-15-2024 10:55-0400 Body weight 79.61 kg Lab/Port Wstr Work Phone: [facility] 07-26-2024 13:25-0500 Body temperature 97.81 [degF] Treatment Wstr Work Phone: [facility] 07-26-2024 13:25-0500 Diastolic blood pressure 56 mm[Hg] Treatment Wstr Work Phone: [facility] 07-26-2024 13:25-0500 Heart rate 87 /min Treatment Wstr Work Phone: [facility] 07-26-2024 13:25-0500 SaO2% (BldA) [Mass fraction] 97 % Treatment Wstr Work Phone: [facility] 07-26-2024 13:25-0500 Systolic blood pressure 93 mm[Hg] Treatment Wstr Work Phone: [facility] 07-25-2024 10:14-0500 Body mass index (BMI) [Ratio] 31.69 kg/m2 Quita Hoff Work Phone: [facility] 07-25-2024 10:14-0500 Body temperature 98.8 [degF] Quita Hoff Work Phone: [facility] 07-25-2024 10:14-0500 Body weight 78.02 kg Quita Hoff Work Phone: [facility] 07-25-2024 10:14-0500 Diastolic blood pressure 77 mm[Hg] Quita Hoff Work Phone: [facility] 07-25-2024 10:14-0500 Heart rate 61 /min Quita Hoff Work Phone: [facility] 07-25-2024 10:14-0500 SaO2% (BldA) [Mass fraction] 99 % Quita Hoff Work Phone: [facility] 07-25-2024 10:14-0500 Systolic blood pressure 124 mm[Hg] Quita Hoff Work Phone: [facility] 07-25-2024 09:53-0500 Body mass index (BMI) [Ratio] 31.69 kg/m2 Lab/Port Wstr Work Phone: [facility] 07-25-2024 09:53-0500 Body weight 78.02 kg Lab/Port Wstr Work Phone: [facility] 07-05-2024 14:02-0500 Body temperature 97.81 [degF] Treatment Wstr Work Phone: [facility] 07-05-2024 14:02-0500 Diastolic blood pressure 53 mm[Hg] Treatment Wstr Work Phone: [facility] 07-05-2024 14:02-0500 Heart rate 60 /min Treatment Wstr Work Phone: [facility] 07-05-2024 14:02-0500 SaO2% (BldA) [Mass fraction] 97 % Treatment Wstr Work Phone: [facility] 07-05-2024 14:02-0500 Systolic blood pressure 112 mm[Hg] Treatment Wstr Work Phone: [facility] 07-04-2024 10:42-0500 Body mass index (BMI) [Ratio] 32.06 kg/m2 Lab/Port Wstr Work Phone: [facility] 07-04-2024 10:42-0500 Body temperature 98.29 [degF] Caity Cote APRN.[employer] Work Phone: [facility] 07-04-2024 10:42-0500 Body weight 78.93 kg Lab/Port Wstr Work Phone: [facility] 07-04-2024 10:42-0500 Diastolic blood pressure 64 mm[Hg] Caity Cote APRN.[employer] Work Phone: [facility] 07-04-2024 10:42-0500 Heart rate 63 /min Caity Cote APRN.[employer] Work Phone: [facility] 07-04-2024 10:42-0500 SaO2% (BldA) [Mass fraction] 96 % Caity Cote APRN.[employer] Work Phone: [facility] 07-04-2024 10:42-0500 Systolic blood pressure 98 mm[Hg] Caity Cote ELECTRONICS SPECIALIST.[employer] Work Phone: [facility] 06-14-2024 13:32-0500 Body temperature 97.9 [degF] Treatment Wstr Work Phone: [facility] 06-14-2024 13:32-0500 Diastolic blood pressure 72 mm[Hg] Treatment Wstr Work Phone: [facility] 06-14-2024 13:32-0500 Heart rate 62 /min Treatment Wstr Work Phone: [facility] 06-14-2024 13:32-0500 Respiratory rate 18 /min Treatment Wstr Work Phone: [facility] 06-14-2024 13:32-0500 SaO2% (BldA) [Mass fraction] 96 % Treatment Wstr Work Phone: [facility] 06-14-2024 13:32-0500 Systolic blood pressure 130 mm[Hg] Treatment Wstr Work Phone: [facility] 06-13-2024 11:20-0500 Body mass index (BMI) [Ratio] 32.06 kg/m2 Rip Masci DO Work Phone: [facility] 06-13-2024 11:20-0500 Body temperature 98.2 [degF] Rip Masci DO Work Phone: [facility] 06-13-2024 11:20-0500 Body weight 78.93 kg Rip Masci DO Work Phone: [facility] 06-13-2024 11:20-0500 Diastolic blood pressure 73 mm[Hg] Rip Masci DO Work Phone: [facility] 06-13-2024 11:20-0500 Heart rate 61 /min Rip Masci DO Work Phone: [facility] 06-13-2024 11:20-0500 SaO2% (BldA) [Mass fraction] 97 % Rip Masci DO Work Phone: [facility] 06-13-2024 11:20-0500 Systolic blood pressure 120 mm[Hg] Rip Masci DO Work Phone: [facility] 06-13-2024 10:58-0500 Body mass index (BMI) [Ratio] 32.06 kg/m2 Lab/Port Wstr Work Phone: [facility] 06-13-2024 10:58-0500 Body weight 78.93 kg Lab/Port Wstr Work Phone: [facility] 05-24-2024 09:59-0500 Diastolic blood pressure 70 mm[Hg] Treatment Wstr Work Phone: [facility] 05-24-2024 09:59-0500 Heart rate 72 /min Treatment Wstr Work Phone: [facility] 05-24-2024 09:59-0500 Respiratory rate 18 /min Treatment Wstr Work Phone: [facility] 05-24-2024 09:59-0500 SaO2% (BldA) [Mass fraction] 97 % Treatment Wstr Work Phone: [facility] 05-24-2024 09:59-0500 Systolic blood pressure 130 mm[Hg] Treatment Wstr Work Phone: [facility] 05-23-2024 10:56-0500 Body mass index (BMI) [Ratio] 31.97 kg/m2 Rip Masci DO Work Phone: [facility] 05-23-2024 10:56-0500 Body temperature 98.2 [degF] Rip Masci DO Work Phone: [facility] 05-23-2024 10:56-0500 Body weight 78.7 kg Rip Masci DO Work Phone: [facility] 05-23-2024 10:56-0500 Diastolic blood pressure 79 mm[Hg] Rip Masci DO Work Phone: [facility] 05-23-2024 10:56-0500 Heart rate 77 /min Rip Masci DO Work Phone: [facility] 05-23-2024 10:56-0500 SaO2% (BldA) [Mass fraction] 97 % Rip Masci DO Work Phone: [facility] 05-23-2024 10:56-0500 Systolic blood pressure 125 mm[Hg] Rip Masci DO Work Phone: [facility] 05-23-2024 10:40-0500 Body mass index (BMI) [Ratio] 31.97 kg/m2 Lab/Port Wstr Work Phone: [facility] 05-23-2024 10:40-0500 Body weight 78.7 kg Lab/Port Wstr Work Phone: [facility] 05-04-2024 13:00-0500 Body temperature 97.7 [degF] Treatment Wstr Work Phone: [facility] 05-04-2024 13:00-0500 Diastolic blood pressure 67 mm[Hg] Treatment Wstr Work Phone: [facility] 05-04-2024 13:00-0500 Heart rate 72 /min Treatment Wstr Work Phone: [facility] 05-04-2024 13:00-0500 Systolic blood pressure 136 mm[Hg] Treatment Wstr Work Phone: [facility] 05-02-2024 10:01-0500 Body mass index (BMI) [Ratio] 32.24 kg/m2 Rip Masci DO Work Phone: [facility] 05-02-2024 10:01-0500 Body temperature 97.5 [degF] Rip Masci DO Work Phone: [facility] 05-02-2024 10:01-0500 Body weight 79.38 kg Rip Masci DO Work Phone: [facility] 05-02-2024 10:01-0500 Diastolic blood pressure 65 mm[Hg] Rip Masci DO Work Phone: [facility] 05-02-2024 10:01-0500 Heart rate 66 /min Rip Masci DO Work Phone: [facility] 05-02-2024 10:01-0500 SaO2% (BldA) [Mass fraction] 96 % Rip Masci DO Work Phone: [facility] 05-02-2024 10:01-0500 Systolic blood pressure 109 mm[Hg] Rip Masci DO Work Phone: [facility] 05-02-2024 09:44-0500 Body mass index (BMI) [Ratio] 32.24 kg/m2 Lab/Port Wstr Work Phone: [facility] 05-02-2024 09:44-0500 Body weight 79.38 kg Lab/Port Wstr Work Phone: [facility] 04-12-2024 09:09-0500 Body temperature 97.59 [degF] Treatment Wstr Work Phone: [facility] 04-12-2024 09:09-0500 Diastolic blood pressure 76 mm[Hg] Treatment Wstr Work Phone: [facility] 04-12-2024 09:09-0500 Heart rate 64 /min Treatment Wstr Work Phone: [facility] 04-12-2024 09:09-0500 Respiratory rate 18 /min Treatment Wstr Work Phone: [facility] 04-12-2024 09:09-0500 SaO2% (BldA) [Mass fraction] 97 % Treatment Wstr Work Phone: [facility] 04-12-2024 09:09-0500 Systolic blood pressure 124 mm[Hg] Treatment Wstr Work Phone: [facility] 04-11-2024 08:39-0500 Body mass index (BMI) [Ratio] 32.61 kg/m2 Lab/Port Wstr Work Phone: [facility] 04-11-2024 08:39-0500 Body temperature 98.29 [degF] Caity Cote ELECTRONICS SPECIALIST[employer] Work Phone: [facility] 04-11-2024 08:39-0500 Body weight 80.29 kg Lab/Port Wstr Work Phone: [facility] 04-11-2024 08:39-0500 Diastolic blood pressure 73 mm[Hg] Caity Cote ELECTRONICS SPECIALIST[employer] Work Phone: [facility] 04-11-2024 08:39-0500 Heart rate 60 /min Caity Cote ELECTRONICS SPECIALIST.[employer] Work Phone: [facility] 04-11-2024 08:39-0500 SaO2% (BldA) [Mass fraction] 94 % Caity Maryenter ELECTRONICS SPECIALIST.[employer] Work Phone: [facility] 04-11-2024 08:39-0500 Systolic blood pressure 110 mm[Hg] [place] Cote ELECTRONICS SPECIALIST[employer] Work Phone: [facility] 03-22-2024 10:28-0400 Body temperature 98.4 [degF] Treatment Wstr Work Phone: [facility] 03-22-2024 10:28-0400 Diastolic blood pressure 73 mm[Hg] Treatment Wstr Work Phone: [facility] 03-22-2024 10:28-0400 Heart rate 75 /min Treatment Wstr Work Phone: [facility] 03-22-2024 10:28-0400 Respiratory rate 16 /min Treatment Wstr Work Phone: [facility] 03-22-2024 10:28-0400 SaO2% (BldA) [Mass fraction] 98 % Treatment Wstr Work Phone: [facility] 03-22-2024 10:28-0400 Systolic blood pressure 127 mm[Hg] Treatment Wstr Work Phone: [facility] 03-21-2024 07:48-0400 Body mass index (BMI) [Ratio] 32.98 kg/m2 Lab/Port Wstr Work Phone: [facility] 03-21-2024 07:48-0400 Body temperature 97.5 [degF] Rip Rivers DO Work Phone: [facility] 03-21-2024 07:48-0400 Body weight 81.19 kg Lab/Port Wstr Work Phone: [facility] 03-21-2024 07:48-0400 Diastolic blood pressure 64 mm[Hg] Rip Rivers DO Work Phone: [facility] 03-21-2024 07:48-0400 Heart rate 66 /min Rip Rivers DO Work Phone: [facility] 03-21-2024 07:48-0400 SaO2% (BldA) [Mass fraction] 97 % Rip Silvestre DO Work Phone: [facility] 03-21-2024 07:48-0400 Systolic blood pressure 119 mm[Hg] Rip Riki DO Work Phone: [facility] 02-28-2024 08:01-0400 Body temperature 97.5 [degF] Treatment Wstr Work Phone: [facility] 02-28-2024 08:01-0400 Diastolic blood pressure 81 mm[Hg] Treatment Wstr Work Phone: [facility] 02-28-2024 08:01-0400 Heart rate 64 /min Treatment Wstr Work Phone: [facility] 02-28-2024 08:01-0400 SaO2% (BldA) [Mass fraction] 97 % Treatment Wstr Work Phone: [facility] 02-28-2024 08:01-0400 Systolic blood pressure 130 mm[Hg] Treatment Wstr Work Phone: [facility] 02-27-2024 10:48-0400 Body mass index (BMI) [Ratio] 32.9 kg/m2 Caity Cote ELECTRONICS SPECIALIST[employer] Work Phone: [facility] 02-27-2024 10:48-0400 Body temperature 98.01 [degF] Caity Cote ELECTRONICS SPECIALIST.[employer] Work Phone: [facility] 02-27-2024 10:48-0400 Body weight 81 kg Caity Cote ELECTRONICS SPECIALIST.[employer] Work Phone: [facility] 02-27-2024 10:48-0400 Diastolic blood pressure 58 mm[Hg] Caity Cote ELECTRONICS SPECIALIST.[employer] Work Phone: [facility] 02-27-2024 10:48-0400 Heart rate 55 /min Caity Cote ELECTRONICS SPECIALIST.[employer] Work Phone: [facility] 02-27-2024 10:48-0400 SaO2% (BldA) [Mass fraction] 97 % Caity Cote ELECTRONICS SPECIALIST.[employer] Work Phone: [facility] 02-27-2024 10:48-0400 Systolic blood pressure 110 mm[Hg] Caity Cote ELECTRONICS SPECIALIST.[employer] Work Phone: [facility] 02-27-2024 10:13-0400 Body mass index (BMI) [Ratio] 32.89 kg/m2 Lab/Port Wstr Work Phone: [facility] 02-27-2024 10:13-0400 Body weight 80.97 kg Lab/Port Wstr Work Phone: [facility] 02-08-2024 08:20-0400 Body height 156.9 cm Treatment Wstr Work Phone: [facility] Comment on above: without shoes 02-08-2024 08:20-0400 Body temperature 97.81 [degF] Treatment Wstr Work Phone: [facility] 02-08-2024 08:20-0400 Diastolic blood pressure 74 mm[Hg] Treatment Wstr Work Phone: [facility] 02-08-2024 08:20-0400 Heart rate 62 /min Treatment Wstr Work Phone: [facility] 02-08-2024 08:20-0400 Respiratory rate 14 /min Treatment Wstr Work Phone: [facility] 02-08-2024 08:20-0400 SaO2% (BldA) [Mass fraction] 96 % Treatment Wstr Work Phone: [facility] 02-08-2024 08:20-0400 Systolic blood pressure 119 mm[Hg] Treatment Wstr Work Phone: [facility] 02-03-2024 09:32-0400 Body mass index (BMI) [Ratio] 33.44 kg/m2 Caity Cote ELECTRONICS SPECIALIST.[employer] Work Phone: [facility] 02-03-2024 09:32-0400 Body temperature 97.3 [degF] Caity Cote ELECTRONICS SPECIALIST.[employer] Work Phone: [facility] 02-03-2024 09:32-0400 Body weight 80.29 kg Caity Cote ELECTRONICS SPECIALIST.[employer] Work Phone: [facility] 02-03-2024 09:32-0400 Diastolic blood pressure 61 mm[Hg] Caity Cote ELECTRONICS SPECIALIST.[employer] Work Phone: [facility] 02-03-2024 09:32-0400 Heart rate 74 /min Caity Cote ELECTRONICS SPECIALIST.[employer] Work Phone: [facility] 02-03-2024 09:32-0400 SaO2% (BldA) [Mass fraction] 100 % Caity Cote ELECTRONICS SPECIALIST.[employer] Work Phone: [facility] 02-03-2024 09:32-0400 Systolic blood pressure 114 mm[Hg] Caity Cote ELECTRONICS SPECIALIST.[employer] Work Phone: [facility] 02-03-2024 09:20-0400 Body mass index (BMI) [Ratio] 33.44 kg/m2 Lab/Port Wstr Work Phone: [facility] 02-03-2024 09:20-0400 Body weight 80.29 kg Lab/Port Wstr Work Phone: [facility] 01-16-2024 09:01-0400 Body mass index (BMI) [Ratio] 33.35 kg/m2 Treatment Wstr Work Phone: [facility] 01-16-2024 09:01-0400 Body temperature 97.11 [degF] Treatment Wstr Work Phone: [facility] 01-16-2024 09:01-0400 Body weight 80.06 kg Treatment Wstr Work Phone: [facility] 01-16-2024 09:01-0400 Diastolic blood pressure 72 mm[Hg] Treatment Wstr Work Phone: [facility] 01-16-2024 09:01-0400 Heart rate 62 /min Treatment Wstr Work Phone: [facility] 01-16-2024 09:01-0400 SaO2% (BldA) [Mass fraction] 96 % Treatment Wstr Work Phone: [facility] 01-16-2024 09:01-0400 Systolic blood pressure 112 mm[Hg] Treatment Wstr Work Phone: [facility] 01-04-2024 09:50-0400 Body mass index (BMI) [Ratio] 33.63 kg/m2 Rip Masci DO Work Phone: [facility] 01-04-2024 09:50-0400 Body temperature 98.49 [degF] Rip Masci DO Work Phone: [facility] 01-04-2024 09:50-0400 Body weight 80.74 kg Rip Masci DO Work Phone: [facility] 01-04-2024 09:50-0400 Diastolic blood pressure 57 mm[Hg] Rip Masci DO Work Phone: [facility] 01-04-2024 09:50-0400 Heart rate 67 /min Rip Masci DO Work Phone: [facility] 01-04-2024 09:50-0400 SaO2% (BldA) [Mass fraction] 96 % Rip Masci DO Work Phone: [facility] 01-04-2024 09:50-0400 Systolic blood pressure 93 mm[Hg] Rip Masci DO Work Phone: [facility] 12-22-2023 10:49-0400 Diastolic blood pressure 77 mm[Hg] Treatment Wstr Work Phone: [facility] 12-22-2023 10:49-0400 Heart rate 66 /min Treatment Wstr Work Phone: [facility] 12-22-2023 10:49-0400 Systolic blood pressure 144 mm[Hg] Treatment Wstr Work Phone: [facility] 12-22-2023 09:47-0400 Body temperature 98.49 [degF] Treatment Wstr Work Phone: [facility] 12-22-2023 09:47-0400 Respiratory rate 22 /min Treatment Wstr Work Phone: [facility] 12-15-2023 14:00-0400 Body temperature 97.59 [degF] Treatment Wstr Work Phone: [facility] 12-15-2023 14:00-0400 Diastolic blood pressure 61 mm[Hg] Treatment Wstr Work Phone: [facility] 12-15-2023 14:00-0400 Heart rate 61 /min Treatment Wstr Work Phone: [facility] 12-15-2023 14:00-0400 SaO2% (BldA) [Mass fraction] 96 % Treatment Wstr Work Phone: [facility] 12-15-2023 14:00-0400 Systolic blood pressure 112 mm[Hg] Treatment Wstr Work Phone: [facility] 12-14-2023 11:16-0400 Body mass index (BMI) [Ratio] 33.63 kg/m2 Caity Cote [employer] Work Phone: [facility] 12-14-2023 11:16-0400 Body temperature 97.3 [degF] Caity Cote [employer] Work Phone: [facility] 12-14-2023 11:16-0400 Body weight 80.74 kg Caity Cote [employer]RON[employer] Work Phone: [facility] 12-14-2023 11:16-0400 Diastolic blood pressure 61 mm[Hg] Caity Cote [employer] Work Phone: [facility] 12-14-2023 11:16-0400 Heart rate 62 /min Caity Cote [employer] Work Phone: [facility] 12-14-2023 11:16-0400 SaO2% (BldA) [Mass fraction] 95 % Caity Cote [employer] Work Phone: [facility] 12-14-2023 11:16-0400 Systolic blood pressure 93 mm[Hg] Caity Cote [employer] Work Phone: [facility] 12-14-2023 10:52-0400 Body mass index (BMI) [Ratio] 33.63 kg/m2 Lab/Port Wstr Work Phone: [facility] 12-14-2023 10:52-0400 Body weight 80.74 kg Lab/Port Wstr Work Phone: [facility] 11-24-2023 14:00-0400 Body temperature 97.5 [degF] Treatment Wstr Work Phone: [facility] 11-24-2023 14:00-0400 Diastolic blood pressure 72 mm[Hg] Treatment Wstr Work Phone: [facility] 11-24-2023 14:00-0400 Heart rate 80 /min Treatment Wstr Work Phone: [facility] 11-24-2023 14:00-0400 Systolic blood pressure 109 mm[Hg] Treatment Wstr Work Phone: [facility] 11-23-2023 10:30-0400 Body mass index (BMI) [Ratio] 34.58 kg/m2 Rip Masci DO Work Phone: [facility] 11-23-2023 10:30-0400 Body temperature 98.49 [degF] Rip Masci DO Work Phone: [facility] 11-23-2023 10:30-0400 Body weight 83.01 kg Rip Masci DO Work Phone: [facility] 11-23-2023 10:30-0400 Diastolic blood pressure 63 mm[Hg] Rip Masci DO Work Phone: [facility] 11-23-2023 10:30-0400 Heart rate 60 /min Rip Masci DO Work Phone: [facility] 11-23-2023 10:30-0400 SaO2% (BldA) [Mass fraction] 96 % Rip Masci DO Work Phone: [facility] 11-23-2023 10:30-0400 Systolic blood pressure 117 mm[Hg] Rip Silvestre DO Work Phone: [facility] 11-03-2023 10:43-0400 Body temperature 97.5 [degF] Treatment Wstr Work Phone: [facility] 11-03-2023 10:43-0400 Diastolic blood pressure 71 mm[Hg] Treatment Wstr Work Phone: [facility] 11-03-2023 10:43-0400 Heart rate 56 /min Treatment Wstr Work Phone: [facility] 11-03-2023 10:43-0400 SaO2% (BldA) [Mass fraction] 95 % Treatment Wstr Work Phone: [facility] 11-03-2023 10:43-0400 Systolic blood pressure 122 mm[Hg] Treatment Wstr Work Phone: [facility] 11-02-2023 13:28-0400 Body mass index (BMI) [Ratio] 34.35 kg/m2 Caity Cote [employer] Work Phone: [facility] 11-02-2023 13:28-0400 Body temperature 99.3 [degF] Caity Cote [employer] Work Phone: [facility] 11-02-2023 13:28-0400 Body weight 82.46 kg Caity Cote [employer] Work Phone: [facility] 11-02-2023 13:28-0400 Diastolic blood pressure 72 mm[Hg] Caity Cote [employer] Work Phone: [facility] 11-02-2023 13:28-0400 Heart rate 63 /min Caity Cote [employer] Work Phone: [facility] 11-02-2023 13:28-0400 SaO2% (BldA) [Mass fraction] 96 % Caity Cote [employer] Work Phone: [facility] 11-02-2023 13:28-0400 Systolic blood pressure 113 mm[Hg] Caity Cote [employer] Work Phone: [facility] 11-02-2023 12:00-0400 Body mass index (BMI) [Ratio] 34.29 kg/m2 Lab/Port Wstr Work Phone: [facility] 11-02-2023 12:00-0400 Body weight 82.33 kg Lab/Port Wstr Work Phone: [facility] 10-13-2023 11:00-0400 Body temperature 98.2 [degF] Treatment Wstr Work Phone: [facility] 10-13-2023 11:00-0400 Diastolic blood pressure 56 mm[Hg] Treatment Wstr Work Phone: [facility] 10-13-2023 11:00-0400 Heart rate 65 /min Treatment Wstr Work Phone: [facility] 10-13-2023 11:00-0400 Systolic blood pressure 123 mm[Hg] Treatment Wstr Work Phone: [facility] 10-11-2023 10:22-0400 Body mass index (BMI) [Ratio] 34.29 kg/m2 Rip Riki DO Work Phone: [facility] 10-11-2023 10:22-0400 Body temperature 97.7 [degF] Rip Masci DO Work Phone: [facility] 10-11-2023 10:22-0400 Body weight 82.33 kg Rip Masci DO Work Phone: [facility] 10-11-2023 10:22-0400 Diastolic blood pressure 71 mm[Hg] Rip Masci DO Work Phone: [facility] 10-11-2023 10:22-0400 Heart rate 52 /min Rip Masci DO Work Phone: [facility] 10-11-2023 10:22-0400 SaO2% (BldA) [Mass fraction] 93 % Rip Masci DO Work Phone: [facility] 10-11-2023 10:22-0400 Systolic blood pressure 112 mm[Hg] Rip Rivers DO Work Phone: [facility] 2023 13:56-0400 Body temperature 97.11 [degF] Meenu Garay MD Work Phone: [facility] 2023 13:56-0400 Diastolic blood pressure 73 mm[Hg] Meenu Garay MD Work Phone: [facility] 2023 13:56-0400 Heart rate 66 /min Meenu Garay MD Work Phone: [facility] 2023 13:56-0400 SaO2% (BldA) [Mass fraction] 97 % Meenu Garay MD Work Phone: [facility] 2023 13:56-0400 Systolic blood pressure 146 mm[Hg] Meenu Garay MD Work Phone: [facility] 09-22-2023 12:33-0400 Body temperature 98.91 [degF] Treatment Wstr Work Phone: [facility] 09-22-2023 12:33-0400 Diastolic blood pressure 64 mm[Hg] Treatment Wstr Work Phone: [facility] 09-22-2023 12:33-0400 Heart rate 63 /min Treatment Wstr Work Phone: [facility] 09-22-2023 12:33-0400 Respiratory rate 20 /min Treatment Wstr Work Phone: [facility] 09-22-2023 12:33-0400 Systolic blood pressure 120 mm[Hg] Treatment Wstr Work Phone: [facility] 09-21-2023 08:34-0400 Body temperature 98.6 [degF] Rip Rivers DO Work Phone: [facility] 09-21-2023 08:34-0400 Body weight 82.33 kg Rip Rivers DO Work Phone: [facility] 09-21-2023 08:34-0400 Diastolic blood pressure 82 mm[Hg] Rip Riki DO Work Phone: [facility] 09-21-2023 08:34-0400 Heart rate 76 /min Rip Masci DO Work Phone: [facility] 09-21-2023 08:34-0400 SaO2% (BldA) [Mass fraction] 95 % Rip Masci DO Work Phone: [facility] 09-21-2023 08:34-0400 Systolic blood pressure 125 mm[Hg] Rip Masci DO Work Phone: [facility] 09-21-2023 08:19-0400 Body weight 82.33 kg Lab/Port Wstr Work Phone: [facility] 08-30-2023 09:02-0400 Body temperature 98.2 [degF] Rip Riki DO Work Phone: [facility] 08-30-2023 09:02-0400 Body weight 84.37 kg Lab/Port Wstr Work Phone: [facility] 08-30-2023 09:02-0400 Diastolic blood pressure 56 mm[Hg] Rip Masci DO Work Phone: [facility] 08-30-2023 09:02-0400 Heart rate 61 /min Rip Riki DO Work Phone: [facility] 08-30-2023 09:02-0400 Systolic blood pressure 113 mm[Hg] Rip Masci DO Work Phone: [facility] 08-26-2023 09:20-0400 Body temperature 98.1 [degF] Meenu Garay MD Work Phone: [facility] 08-26-2023 09:20-0400 Body weight 86.18 kg Meenu Garay MD Work Phone: [facility] 08-26-2023 09:20-0400 Diastolic blood pressure 70 mm[Hg] Meenu Garay MD Work Phone: [facility] 08-26-2023 09:20-0400 Heart rate 62 /min Meenu Garay MD Work Phone: [facility] 08-26-2023 09:20-0400 SaO2% (BldA) [Mass fraction] 97 % Meenu Garay MD Work Phone: [facility] 08-26-2023 09:20-0400 Systolic blood pressure 115 mm[Hg] Meenu Garay MD Work Phone: [facility] 08-17-2023 00:49-0400 Body temperature 98.1 [degF] Dr. Williams Farrell Work Phone: [facility] 08-17-2023 00:49-0400 Diastolic blood pressure 89 mm[Hg] Dr. Williams Farrell Work Phone: [facility] 08-17-2023 00:49-0400 Heart rate 64 /min Dr. Williams Farrell Work Phone: [facility] 08-17-2023 00:49-0400 Respiratory rate 19 /min Dr. Williams Farrell Work Phone: [facility] 08-17-2023 00:49-0400 SaO2% (BldA) [Mass fraction] 94 % Dr. Wililams Farrell Work Phone: [facility] 08-17-2023 00:49-0400 Systolic blood pressure 120 mm[Hg] Dr. Williams Farrell Work Phone: [facility] 08-16-2023 21:50-0400 Body height 154.[address] Williams Farrell Work Phone: [facility] 08-16-2023 21:50-0400 Body mass index (BMI) [Ratio] 35.6 kg/m2 Dr. Williams Farrell Work Phone: [facility] 08-16-2023 21:50-0400 Body weight 85.[address] Williams Farrell Work Phone: [facility] 08-11-2023 13:02-0500 Body temperature 97.7 [degF] Treatment Wstr Work Phone: [facility] 08-11-2023 13:02-0500 Diastolic blood pressure 54 mm[Hg] Treatment Wstr Work Phone: [facility] 08-11-2023 13:02-0500 Heart rate 60 /min Treatment Wstr Work Phone: [facility] 08-11-2023 13:02-0500 SaO2% (BldA) [Mass fraction] 97 % Treatment Wstr Work Phone: [facility] 08-11-2023 13:02-0500 Systolic blood pressure 106 mm[Hg] Treatment Wstr Work Phone: [facility] 08-10-2023 09:43-0500 Body temperature 97.7 [degF] Rip Masci DO Work Phone: [facility] 08-10-2023 09:43-0500 Body weight 86.18 kg Rip Masci DO Work Phone: [facility] 08-10-2023 09:43-0500 Diastolic blood pressure 76 mm[Hg] Rip Masci DO Work Phone: [facility] 08-10-2023 09:43-0500 Heart rate 64 /min Rip Masci DO Work Phone: [facility] 08-10-2023 09:43-0500 SaO2% (BldA) [Mass fraction] 98 % Rip Masci DO Work Phone: [facility] 08-10-2023 09:43-0500 Systolic blood pressure 127 mm[Hg] Rip Masci DO Work Phone: [facility] 08-10-2023 09:26-0500 Body weight 86.18 kg Lab/Port Wstr Work Phone: [facility] 07-21-2023 13:45-0500 Body temperature 97.39 [degF] Treatment Wstr Work Phone: [facility] 07-21-2023 13:45-0500 Diastolic blood pressure 60 mm[Hg] Treatment Wstr Work Phone: [facility] 07-21-2023 13:45-0500 Heart rate 64 /min Treatment Wstr Work Phone: [facility] 07-21-2023 13:45-0500 SaO2% (BldA) [Mass fraction] 97 % Treatment Wstr Work Phone: [facility] 07-21-2023 13:45-0500 Systolic blood pressure 120 mm[Hg] Treatment Wstr Work Phone: [facility] 07-20-2023 10:19-0500 Body temperature 97.2 [degF] [place] Cote [employer] Work Phone: [facility] 07-20-2023 10:19-0500 Body weight 84.37 kg Caity Cote [employer]RON[employer] Work Phone: [facility] 07-20-2023 10:19-0500 Diastolic blood pressure 63 mm[Hg] Caity Cote [employer] Work Phone: [facility] 07-20-2023 10:19-0500 Heart rate 61 /min [place] [employer] Work Phone: [facility] 07-20-2023 10:19-0500 SaO2% (BldA) [Mass fraction] 97 % [place] [employer] Work Phone: [facility] 07-20-2023 10:19-0500 Systolic blood pressure 112 mm[Hg] [place] [employer] Work Phone: [facility] 06-16-2023 09:29-0500 Body height 154.9 cm Williams Oberhauser DO Work Phone: [facility] 06-16-2023 09:29-0500 Body mass index (BMI) [Ratio] 35.52 kg/m2 Williams Oberhauser DO Work Phone: [facility] 06-16-2023 09:29-0500 Body weight 85.28 kg Williams Oberhauser DO Work Phone: [facility] 06-16-2023 09:29-0500 Diastolic blood pressure 66 mm[Hg] Williams Farrell DO Work Phone: [facility] 06-16-2023 09:29-0500 Heart rate 67 /min Williams Farrell DO Work Phone: [facility] 06-16-2023 09:29-0500 Systolic blood pressure 102 mm[Hg] Williams Farrell DO Work Phone: [facility] 05-27-2023 09:35-0500 Body height 154.[address] Mitch Mejia Work Phone: [facility] 05-27-2023 09:35-0500 Body mass index (BMI) [Ratio] 36.1 kg/m2 Dr. Mitch Mejia Work Phone: [facility] 05-27-2023 09:35-0500 Body weight 86.[address] Mitch Mejia Work Phone: [facility] 05-27-2023 09:35-0500 Diastolic blood pressure 61 mm[Hg] Dr. Mitch Mejia Work Phone: [facility] 05-27-2023 09:35-0500 Heart rate 66 /min Dr. Mitch Mejia Work Phone: [facility] 05-27-2023 09:35-0500 Respiratory rate 18 /min Dr. Mitch Mejia Work Phone: [facility] 05-27-2023 09:35-0500 SaO2% (BldA) [Mass fraction] 95 % Dr. Mitch Mejia Work Phone: [facility] 05-27-2023 09:35-0500 Systolic blood pressure 103 mm[Hg] Dr. Mitch Mejia Work Phone: [facility] 04-27-2023 09:00-0500 Body temperature 98.1 [degF] Treatment Wstr Work Phone: [facility] 04-27-2023 09:00-0500 Diastolic blood pressure 55 mm[Hg] Treatment Wstr Work Phone: [facility] 04-27-2023 09:00-0500 Heart rate 70 /min Treatment Wstr Work Phone: [facility] 04-27-2023 09:00-0500 Systolic blood pressure 129 mm[Hg] Treatment Wstr Work Phone: [facility] 04-26-2023 09:19-0500 Body temperature 97.59 [degF] Rip Masci DO Work Phone: [facility] 04-26-2023 09:19-0500 Body weight 87.09 kg Lab/Port Wstr Work Phone: [facility] 04-26-2023 09:19-0500 Diastolic blood pressure 70 mm[Hg] Rip Masci DO Work Phone: [facility] 04-26-2023 09:19-0500 Heart rate 64 /min Rip Masci DO Work Phone: [facility] 04-26-2023 09:19-0500 SaO2% (BldA) [Mass fraction] 96 % Rip Masci DO Work Phone: [facility] 04-26-2023 09:19-0500 Systolic blood pressure 128 mm[Hg] Rip Masci DO Work Phone: [facility] 04-06-2023 08:39-0400 Body temperature 97.59 [degF] Caity Cote [employer] Work Phone: [facility] 04-06-2023 08:39-0400 Body weight 88 kg Caity Cote [employer] Work Phone: [facility] 04-06-2023 08:39-0400 Diastolic blood pressure 78 mm[Hg] Caity Cote [employer] Work Phone: [facility] 04-06-2023 08:39-0400 Heart rate 78 /min [place] [employer] Work Phone: [facility] 04-06-2023 08:39-0400 SaO2% (BldA) [Mass fraction] 99 % Caity Cote [employer] Work Phone: [facility] 04-06-2023 08:39-0400 Systolic blood pressure 117 mm[Hg] Caity Cote [employer] Work Phone: [facility] 03-17-2023 13:25-0400 Body temperature 97 [degF] Treatment Wstr Work Phone: [facility] 03-17-2023 13:25-0400 Diastolic blood pressure 66 mm[Hg] Treatment Wstr Work Phone: [facility] 03-17-2023 13:25-0400 Heart rate 59 /min Treatment Wstr Work Phone: [facility] 03-17-2023 13:25-0400 Systolic blood pressure 129 mm[Hg] Treatment Wstr Work Phone: [facility] 03-16-2023 09:00-0400 Body weight 87.54 kg Lab/Port Wstr Work Phone: [facility] 02-23-2023 10:41-0400 Body temperature 99 [degF] Meenu Garay MD, MD Work Phone: [facility] 02-23-2023 10:41-0400 Body weight 85.64 kg Meenu Garay MD, MD Work Phone: [facility] 02-23-2023 10:41-0400 Diastolic blood pressure 78 mm[Hg] Meenu Garay MD, MD Work Phone: [facility] 02-23-2023 10:41-0400 Heart rate 62 /min Meenu Garay MD, MD Work Phone: [facility] 02-23-2023 10:41-0400 SaO2% (BldA) [Mass fraction] 95 % Meenu Garay MD, MD Work Phone: [facility] 02-23-2023 10:41-0400 Systolic blood pressure 121 mm[Hg] Meenu Garay MD, MD Work Phone: [facility] 02-23-2023 09:47-0400 Body temperature 99 [degF] Rip Riki DO Work Phone: [facility] 02-23-2023 09:47-0400 Body weight 85.5 kg Rip Masci DO Work Phone: [facility] 02-23-2023 09:47-0400 Diastolic blood pressure 78 mm[Hg] Rip Masci DO Work Phone: [facility] 02-23-2023 09:47-0400 Heart rate 62 /min iRp Jollyi DO Work Phone: [facility] 02-23-2023 09:47-0400 SaO2% (BldA) [Mass fraction] 95 % Rip Riki DO Work Phone: [facility] 02-23-2023 09:47-0400 Systolic blood pressure 121 mm[Hg] Rip Masci DO Work Phone: [facility] 02-23-2023 09:31-0400 Body weight 85.5 kg Lab/Port Wstr Work Phone: [facility] 02-17-2023 15:18-0400 SaO2% (BldA) [Mass fraction] 92 % Dr. Mitch Mejia Work Phone: [facility] 02-17-2023 14:00-0400 Body temperature 98.2 [degF] Dr. Mitch Mejia Work Phone: [facility] 02-17-2023 14:00-0400 Diastolic blood pressure 57 mm[Hg] Dr. Mitch Mejia Work Phone: [facility] 02-17-2023 14:00-0400 Heart rate 65 /min Dr. Mitch Mejia Work Phone: [facility] 02-17-2023 14:00-0400 Respiratory rate 16 /min Dr. Mitch Mejia Work Phone: [facility] 02-17-2023 14:00-0400 Systolic blood pressure 116 mm[Hg] Dr. Mitch Mejia Work Phone: [facility] 02-17-2023 01:40-0400 Body height 154.[address] Mitch Mejia Work Phone: [facility] 02-17-2023 01:40-0400 Body mass index (BMI) [Ratio] 34.1 kg/m2 Dr. Mitch Mejia Work Phone: [facility] 02-17-2023 01:40-0400 Body weight 81.[address] Mitch Mejia Work Phone: [facility] 02-16-2023 23:46-0400 Body temperature 97.9 [degF] Dr. Mitch Mejia Work Phone: [facility] 02-16-2023 23:46-0400 Diastolic blood pressure 69 mm[Hg] Dr. Mitch Mejia Work Phone: [facility] 02-16-2023 23:46-0400 Heart rate 58 /min Dr. Mitch Mejia Work Phone: [facility] 02-16-2023 23:46-0400 Respiratory rate 20 /min Dr. Mitch Mejia Work Phone: [facility] 02-16-2023 23:46-0400 SaO2% (BldA) [Mass fraction] 98 % Dr. Mitch Mejia Work Phone: [facility] 02-16-2023 23:46-0400 Systolic blood pressure 144 mm[Hg] Dr. Mitch Mejia Work Phone: [facility] 02-16-2023 18:09-0400 Body height 154.[address] Mitch Mejia Work Phone: [facility] 02-16-2023 18:09-0400 Body mass index (BMI) [Ratio] 36.1 kg/m2 Dr. Mitch Mejia Work Phone: [facility] 02-16-2023 18:09-0400 Body weight 86.[address] Mitch Mejia Work Phone: [facility] 02-03-2023 09:33-0400 Body temperature 98.91 [degF] Meenu Garay MD, MD Work Phone: [facility] 02-03-2023 09:33-0400 Body weight 85.73 kg Meenu Garay MD, MD Work Phone: [facility] 02-03-2023 09:33-0400 Diastolic blood pressure 88 mm[Hg] Meenu Garay MD, MD Work Phone: [facility] 02-03-2023 09:33-0400 Heart rate 63 /min Meenu Garay MD, MD Work Phone: [facility] 02-03-2023 09:33-0400 Respiratory rate 15 /min Meenu Garay MD, MD Work Phone: [facility] 02-03-2023 09:33-0400 SaO2% (BldA) [Mass fraction] 97 % Meenu Garay MD, MD Work Phone: [facility] 02-03-2023 09:33-0400 Systolic blood pressure 122 mm[Hg] Meenu Garay MD, MD Work Phone: [facility] 02-02-2023 08:35-0400 Body weight 85.73 kg Lab/Port Wstr Work Phone: [facility] 01-13-2023 13:00-0400 Body temperature 98.01 [degF] Treatment Wstr Work Phone: [facility] 01-13-2023 13:00-0400 Diastolic blood pressure 53 mm[Hg] Treatment Wstr Work Phone: [facility] 01-13-2023 13:00-0400 Heart rate 66 /min Treatment Wstr Work Phone: [facility] 01-13-2023 13:00-0400 Systolic blood pressure 112 mm[Hg] Treatment Wstr Work Phone: [facility] 01-12-2023 09:33-0400 Body temperature 97.9 [degF] Rip Masci DO Work Phone: [facility] 01-12-2023 09:33-0400 Body weight 85.5 kg Rip Masci DO Work Phone: [facility] 01-12-2023 09:33-0400 Diastolic blood pressure 68 mm[Hg] Rip Masci DO Work Phone: [facility] 01-12-2023 09:33-0400 Heart rate 66 /min Rip Masci DO Work Phone: [facility] 01-12-2023 09:33-0400 SaO2% (BldA) [Mass fraction] 95 % Rip Masci DO Work Phone: [facility] 01-12-2023 09:33-0400 Systolic blood pressure 110 mm[Hg] Rip Masci DO Work Phone: [facility] 12-22-2022 09:53-0400 Body temperature 98.1 [degF] Rip Masci DO Work Phone: [facility] 12-22-2022 09:53-0400 Body weight 84.6 kg Rip Masci DO Work Phone: [facility] 12-22-2022 09:53-0400 Diastolic blood pressure 64 mm[Hg] Rip Masci DO Work Phone: [facility] 12-22-2022 09:53-0400 Heart rate 61 /min Rip Masci DO Work Phone: [facility] 12-22-2022 09:53-0400 SaO2% (BldA) [Mass fraction] 97 % Rip Masci DO Work Phone: [facility] 12-22-2022 09:53-0400 Systolic blood pressure 119 mm[Hg] Rip Masci DO Work Phone: [facility] 12-02-2022 09:12-0400 Body temperature 97.59 [degF] Treatment Wstr Work Phone: [facility] 12-02-2022 09:12-0400 Diastolic blood pressure 59 mm[Hg] Treatment Wstr Work Phone: [facility] 12-02-2022 09:12-0400 Heart rate 63 /min Treatment Wstr Work Phone: [facility] 12-02-2022 09:12-0400 Respiratory rate 16 /min Treatment Wstr Work Phone: [facility] 12-02-2022 09:12-0400 SaO2% (BldA) [Mass fraction] 94 % Treatment Wstr Work Phone: [facility] 12-02-2022 09:12-0400 Systolic blood pressure 114 mm[Hg] Treatment Wstr Work Phone: [facility] 12-01-2022 07:57-0400 Body temperature 98.01 [degF] Rip Masci DO Work Phone: [facility] 12-01-2022 07:57-0400 Body weight 86.64 kg Rip Masci DO Work Phone: [facility] 12-01-2022 07:57-0400 Diastolic blood pressure 56 mm[Hg] Rip Masci DO Work Phone: [facility] 12-01-2022 07:57-0400 Heart rate 59 /min Rip Masci DO Work Phone: [facility] 12-01-2022 07:57-0400 SaO2% (BldA) [Mass fraction] 95 % Rip Masci DO Work Phone: [facility] 12-01-2022 07:57-0400 Systolic blood pressure 110 mm[Hg] Rip Masci DO Work Phone: [facility] 11-26-2022 11:14-0400 Body height 154.[address] Mitch Mejia Work Phone: [facility] 11-26-2022 11:14-0400 Body mass index (BMI) [Ratio] 35.6 kg/m2 Dr. Mitch Mejia Work Phone: [facility] 11-26-2022 11:14-0400 Body weight 85.[address] Mitch Mejia Work Phone: [facility] 11-26-2022 11:14-0400 Diastolic blood pressure 65 mm[Hg] Dr. Mitch Mejia Work Phone: [facility] 11-26-2022 11:14-0400 Heart rate 60 /min Dr. Mitch Mejia Work Phone: [facility] 11-26-2022 11:14-0400 Respiratory rate 18 /min Dr. Mitch Mejia Work Phone: [facility] 11-26-2022 11:14-0400 Systolic blood pressure 100 mm[Hg] Dr. Mitch Mejia Work Phone: [facility] 11-11-2022 08:00-0400 Body temperature 98.4 [degF] Treatment Wstr Work Phone: [facility] 11-11-2022 08:00-0400 Diastolic blood pressure 49 mm[Hg] Treatment Wstr Work Phone: [facility] 11-11-2022 08:00-0400 Heart rate 111 /min Treatment Wstr Work Phone: [facility] 11-11-2022 08:00-0400 Respiratory rate 18 /min Treatment Wstr Work Phone: [facility] 11-11-2022 08:00-0400 SaO2% (BldA) [Mass fraction] 100 % Treatment Wstr Work Phone: [facility] 11-11-2022 08:00-0400 Systolic blood pressure 103 mm[Hg] Treatment Wstr Work Phone: [facility] 11-10-2022 09:52-0400 Body height 154.9 cm Rip Riki DO Work Phone: [facility] 11-10-2022 09:52-0400 Body temperature 98.4 [degF] Rip Masci DO Work Phone: [facility] 11-10-2022 09:52-0400 Body weight 85.73 kg Rip Masci DO Work Phone: [facility] 11-10-2022 09:52-0400 Diastolic blood pressure 56 mm[Hg] Rip Masci DO Work Phone: [facility] 11-10-2022 09:52-0400 Heart rate 68 /min Rip Masci DO Work Phone: [facility] 11-10-2022 09:52-0400 Respiratory rate 12 /min Rip Masci DO Work Phone: [facility] 11-10-2022 09:52-0400 SaO2% (BldA) [Mass fraction] 95 % Rip Masci DO Work Phone: [facility] 11-10-2022 09:52-0400 Systolic blood pressure 106 mm[Hg] Rip Masci DO Work Phone: [facility] 11-10-2022 09:41-0400 Body weight 85.73 kg Lab/Port Wstr Work Phone: [facility] 10-20-2022 10:02-0400 Body temperature 98.4 [degF] Rip Masci DO Work Phone: [facility] 10-20-2022 10:02-0400 Body weight 86.18 kg Rip Masci DO Work Phone: [facility] 10-20-2022 10:02-0400 Diastolic blood pressure 61 mm[Hg] Rip Masci DO Work Phone: [facility] 10-20-2022 10:02-0400 Heart rate 60 /min Rip Masci DO Work Phone: [facility] 10-20-2022 10:02-0400 SaO2% (BldA) [Mass fraction] 94 % Rip Masci DO Work Phone: [facility] 10-20-2022 10:02-0400 Systolic blood pressure 119 mm[Hg] Rip Masci DO Work Phone: [facility] 09-30-2022 12:45-0400 Body temperature 96.91 [degF] Treatment Wstr Work Phone: [facility] 09-30-2022 12:45-0400 Diastolic blood pressure 59 mm[Hg] Treatment Wstr Work Phone: [facility] 09-30-2022 12:45-0400 Heart rate 56 /min Treatment Wstr Work Phone: [facility] 09-30-2022 12:45-0400 Systolic blood pressure 118 mm[Hg] Treatment Wstr Work Phone: [facility] 09-30-2022 12:28-0400 Body weight 85.28 kg Treatment Wstr Work Phone: [facility] 09-09-2022 09:00-0400 Body temperature 98.01 [degF] Treatment Wstr Work Phone: [facility] 09-09-2022 09:00-0400 Diastolic blood pressure 53 mm[Hg] Treatment Wstr Work Phone: [facility] 09-09-2022 09:00-0400 Heart rate 62 /min Treatment Wstr Work Phone: [facility] 09-09-2022 09:00-0400 SaO2% (BldA) [Mass fraction] 96 % Treatment Wstr Work Phone: [facility] 09-09-2022 09:00-0400 Systolic blood pressure 106 mm[Hg] Treatment Wstr Work Phone: [facility] 09-08-2022 11:38-0400 Body weight 86.41 kg Rip Masci DO Work Phone: [facility] 09-08-2022 11:38-0400 Diastolic blood pressure 62 mm[Hg] Rip Masci DO Work Phone: [facility] 09-08-2022 11:38-0400 Heart rate 64 /min Rip Masci DO Work Phone: [facility] 09-08-2022 11:38-0400 SaO2% (BldA) [Mass fraction] 97 % Rip Masci DO Work Phone: [facility] 09-08-2022 11:38-0400 Systolic blood pressure 114 mm[Hg] Rip Masci DO Work Phone: [facility] 08-18-2022 10:06-0400 Body height 156.2 cm Rip Masci DO Work Phone: [facility] 08-18-2022 10:06-0400 Body temperature 98.49 [degF] Rip Masci DO Work Phone: [facility] 08-18-2022 10:06-0400 Body weight 85.73 kg Rip Masci DO Work Phone: [facility] 08-18-2022 10:06-0400 Diastolic blood pressure 60 mm[Hg] Rip Masci DO Work Phone: [facility] 08-18-2022 10:06-0400 Heart rate 63 /min Rip Masci DO Work Phone: [facility] 08-18-2022 10:06-0400 Systolic blood pressure 124 mm[Hg] Rip Masci DO Work Phone: [facility] 07-29-2022 08:33-0500 Body temperature 97.59 [degF] Caity Cote [employer]LECTRON[employer] Work Phone: [facility] 07-29-2022 08:33-0500 Body weight 86.18 kg Caity Cote [employer]LECTRON[employer]IST[employer] Work Phone: [facility] 07-29-2022 08:33-0500 Diastolic blood pressure 56 mm[Hg] [place] [employer] Work Phone: [facility] 07-29-2022 08:33-0500 Heart rate 69 /min Caity Cote [employer]LECTRONICS SPECIALIST[employer] Work Phone: [facility] 07-29-2022 08:33-0500 Systolic blood pressure 119 mm[Hg] Caity Cote ELECTRONICS SPECIALIST[employer] Work Phone: [facility] 07-08-2022 09:00-0500 Body temperature 96.49 [degF] Treatment Wstr Work Phone: [facility] 07-08-2022 09:00-0500 Diastolic blood pressure 63 mm[Hg] Treatment Wstr Work Phone: [facility] 07-08-2022 09:00-0500 Heart rate 61 /min Treatment Wstr Work Phone: [facility] 07-08-2022 09:00-0500 SaO2% (BldA) [Mass fraction] 97 % Treatment Wstr Work Phone: [facility] 07-08-2022 09:00-0500 Systolic blood pressure 126 mm[Hg] Treatment Wstr Work Phone: [facility] 07-06-2022 08:11-0500 Body temperature 98.4 [degF] Rip Masci DO Work Phone: [facility] 07-06-2022 08:11-0500 Body weight 86.86 kg Lab/Port Wstr Work Phone: [facility] 07-06-2022 08:11-0500 Diastolic blood pressure 66 mm[Hg] Rip Masci DO Work Phone: [facility] 07-06-2022 08:11-0500 Heart rate 60 /min Rip Masci DO Work Phone: [facility] 07-06-2022 08:11-0500 Systolic blood pressure 112 mm[Hg] Rip Masci DO Work Phone: [facility] 06-17-2022 10:00-0500 Body temperature 98.2 [degF] Treatment Wstr Work Phone: [facility] 06-17-2022 10:00-0500 Diastolic blood pressure 56 mm[Hg] Treatment Wstr Work Phone: [facility] 06-17-2022 10:00-0500 Heart rate 63 /min Treatment Wstr Work Phone: [facility] 06-17-2022 10:00-0500 Systolic blood pressure 115 mm[Hg] Treatment Wstr Work Phone: [facility] 06-15-2022 08:33-0500 Body temperature 97.81 [degF] [place] [employer] Work Phone: [facility] 06-15-2022 08:33-0500 Body weight 84.6 kg [place] [employer]RON[employer] Work Phone: [facility] 06-15-2022 08:33-0500 Diastolic blood pressure 68 mm[Hg] Caity Cote [employer]LECTRON[employer]IST[employer] Work Phone: [facility] 06-15-2022 08:33-0500 Heart rate 64 /min [place] [employer] Work Phone: [facility] 06-15-2022 08:33-0500 Systolic blood pressure 124 mm[Hg] Caity Cote ELECTRONICS SPECIALIST[employer] Work Phone: [facility] 06-15-2022 08:21-0500 Body weight 84.6 kg Lab/Port Wstr Work Phone: [facility] 05-27-2022 10:39-0500 Body temperature 98.6 [degF] Treatment Wstr Work Phone: [facility] 05-27-2022 10:39-0500 Diastolic blood pressure 60 mm[Hg] Treatment Wstr Work Phone: [facility] 05-27-2022 10:39-0500 Heart rate 64 /min Treatment Wstr Work Phone: [facility] 05-27-2022 10:39-0500 Systolic blood pressure 115 mm[Hg] Treatment Wstr Work Phone: [facility] 05-25-2022 08:09-0500 Body temperature 98.4 [degF] Rip Rivers DO Work Phone: [facility] 05-25-2022 08:09-0500 Body weight 85.73 kg Rip Rivers DO Work Phone: [facility] 05-25-2022 08:09-0500 Diastolic blood pressure 61 mm[Hg] Rip Rivers DO Work Phone: [facility] 05-25-2022 08:09-0500 Heart rate 58 /min Rip Rivers DO Work Phone: [facility] 05-25-2022 08:09-0500 SaO2% (BldA) [Mass fraction] 96 % Rip Rivers DO Work Phone: [facility] 05-25-2022 08:09-0500 Systolic blood pressure 126 mm[Hg] Rip Rivers DO Work Phone: [facility] 05-06-2022 10:32-0500 Body temperature 97 [degF] Treatment Wstr Work Phone: [facility] 05-06-2022 10:32-0500 Diastolic blood pressure 78 mm[Hg] Treatment Wstr Work Phone: [facility] 05-06-2022 10:32-0500 Heart rate 62 /min Treatment Wstr Work Phone: [facility] 05-06-2022 10:32-0500 Systolic blood pressure 130 mm[Hg] Treatment Wstr Work Phone: [facility] 04-15-2022 10:28-0500 Body temperature 97.59 [degF] Treatment Wstr Work Phone: [facility] 04-15-2022 10:28-0500 Diastolic blood pressure 60 mm[Hg] Treatment Wstr Work Phone: [facility] 04-15-2022 10:28-0500 Heart rate 60 /min Treatment Wstr Work Phone: [facility] 04-15-2022 10:28-0500 Systolic blood pressure 128 mm[Hg] Treatment Wstr Work Phone: [facility] 04-14-2022 09:16-0500 Body temperature 97.39 [degF] Caity Cote APRN.[employer] Work Phone: [facility] 04-14-2022 09:16-0500 Body weight 85.28 kg Lab/Port Wstr Work Phone: [facility] 04-14-2022 09:16-0500 Diastolic blood pressure 69 mm[Hg] Caity Cote [employer] Work Phone: [facility] 04-14-2022 09:16-0500 Heart rate 61 /min Caity Cote [employer] Work Phone: [facility] 04-14-2022 09:16-0500 Systolic blood pressure 127 mm[Hg] Caity Cote [employer]RON[employer] Work Phone: [facility] 04-06-2022 08:46-0400 Body height 154.[address] Mitch Mejia Work Phone: [facility] 04-06-2022 08:46-0400 Body mass index (BMI) [Ratio] 35.5 kg/m2 Dr. Mitch Mejia Work Phone: [facility] 04-06-2022 08:46-0400 Body weight 85.[address] Mitch Mejia Work Phone: [facility] 04-06-2022 08:46-0400 Diastolic blood pressure 79 mm[Hg] Dr. Mitch Mejia Work Phone: [facility] 04-06-2022 08:46-0400 Heart rate 58 /min Dr. Mitch Mejia Work Phone: [facility] 04-06-2022 08:46-0400 Respiratory rate 16 /min Dr. Mitch Mejia Work Phone: [facility] 04-06-2022 08:46-0400 SaO2% (BldA) [Mass fraction] 100 % Dr. Mitch Mejia Work Phone: [facility] 04-06-2022 08:46-0400 Systolic blood pressure 140 mm[Hg] Dr. Mitch Mejia Work Phone: [facility] 03-18-2022 11:02-0400 Body temperature 97.59 [degF] Treatment Wstr Work Phone: [facility] 03-18-2022 11:02-0400 Body weight 84.82 kg Treatment Wstr Work Phone: [facility] 03-18-2022 11:02-0400 Diastolic blood pressure 60 mm[Hg] Treatment Wstr Work Phone: [facility] 03-18-2022 11:02-0400 Heart rate 62 /min Treatment Wstr Work Phone: [facility] 03-18-2022 11:02-0400 Systolic blood pressure 112 mm[Hg] Treatment Wstr Work Phone: [facility] 02-25-2022 08:44-0400 Body temperature 98.01 [degF] Treatment Wstr Work Phone: [facility] 02-25-2022 08:44-0400 Diastolic blood pressure 61 mm[Hg] Treatment Wstr Work Phone: [facility] 02-25-2022 08:44-0400 Heart rate 62 /min Treatment Wstr Work Phone: [facility] 02-25-2022 08:44-0400 Systolic blood pressure 120 mm[Hg] Treatment Wstr Work Phone: [facility] 02-24-2022 09:10-0400 Body temperature 98.4 [degF] Caity Cote ELECTRONICS [employer]IST[employer] Work Phone: [facility] 02-24-2022 09:10-0400 Body weight 83.46 kg [place] [employer]RON[employer] Work Phone: [facility] 02-24-2022 09:10-0400 Diastolic blood pressure 65 mm[Hg] Caity Cote ELECTRONICS SPECIALIST[employer] Work Phone: [facility] 02-24-2022 09:10-0400 Heart rate 64 /min [place] [employer] Work Phone: [facility] 02-24-2022 09:10-0400 Systolic blood pressure 110 mm[Hg] Caity Cote ELECTRONICS SPECIALIST[employer] Work Phone: [facility] 02-04-2022 10:50-0400 Body temperature 98.1 [degF] Treatment Wstr Work Phone: [facility] 02-04-2022 10:50-0400 Diastolic blood pressure 66 mm[Hg] Treatment Wstr Work Phone: [facility] 02-04-2022 10:50-0400 Heart rate 65 /min Treatment Wstr Work Phone: [facility] 02-04-2022 10:50-0400 Respiratory rate 16 /min Treatment Wstr Work Phone: [facility] 02-04-2022 10:50-0400 Systolic blood pressure 127 mm[Hg] Treatment Wstr Work Phone: [facility] 02-03-2022 09:16-0400 Body temperature 98.29 [degF] Rip Masci DO Work Phone: [facility] 02-03-2022 09:16-0400 Body weight 83.23 kg Lab/Port Wstr Work Phone: [facility] 02-03-2022 09:16-0400 Diastolic blood pressure 60 mm[Hg] Rip Masci DO Work Phone: [facility] 02-03-2022 09:16-0400 Heart rate 66 /min Rip Masci DO Work Phone: [facility] 02-03-2022 09:16-0400 Systolic blood pressure 98 mm[Hg] Rip Masci DO Work Phone: [facility] 01-14-2022 08:49-0400 Body temperature 98.01 [degF] Treatment Wstr Work Phone: [facility] 01-14-2022 08:49-0400 Body weight 81.87 kg Treatment Wstr Work Phone: [facility] 01-14-2022 08:49-0400 Diastolic blood pressure 68 mm[Hg] Treatment Wstr Work Phone: [facility] 01-14-2022 08:49-0400 Heart rate 60 /min Treatment Wstr Work Phone: [facility] 01-14-2022 08:49-0400 Systolic blood pressure 134 mm[Hg] Treatment Wstr Work Phone: [facility] 12-24-2021 09:00-0400 Body temperature 97.9 [degF] Treatment Wstr Work Phone: [facility] 12-24-2021 09:00-0400 Diastolic blood pressure 56 mm[Hg] Treatment Wstr Work Phone: [facility] 12-24-2021 09:00-0400 Heart rate 56 /min Treatment Wstr Work Phone: [facility] 12-24-2021 09:00-0400 Respiratory rate 16 /min Treatment Wstr Work Phone: [facility] 12-24-2021 09:00-0400 SaO2% (BldA) [Mass fraction] 96 % Treatment Wstr Work Phone: [facility] 12-24-2021 09:00-0400 Systolic blood pressure 113 mm[Hg] Treatment Wstr Work Phone: [facility] 12-23-2021 09:48-0400 Body temperature 98.1 [degF] [place] [employer] Work Phone: [facility] 12-23-2021 09:48-0400 Body weight 82.1 kg Caity Cote ELECTRONICS [employer] Work Phone: [facility] 12-23-2021 09:48-0400 Diastolic blood pressure 59 mm[Hg] Caity Cote ELECTRONICS [employer]IST[employer] Work Phone: [facility] 12-23-2021 09:48-0400 Heart rate 58 /min [place] [employer] Work Phone: [facility] 12-23-2021 09:48-0400 Systolic blood pressure 122 mm[Hg] Caity Cote ELECTRONICS [employer]IST[employer] Work Phone: [facility] 12-23-2021 09:35-0400 Body weight 82.1 kg Lab/Port Wstr Work Phone: [facility] 12-02-2021 11:21-0400 Body temperature 97.11 [degF] Rip Riki DO Work Phone: [facility] 12-02-2021 11:21-0400 Diastolic blood pressure 63 mm[Hg] Rip Riki DO Work Phone: [facility] 12-02-2021 11:21-0400 Heart rate 65 /min Rip Riki DO Work Phone: [facility] 12-02-2021 11:21-0400 SaO2% (BldA) [Mass fraction] 97 % Rip Riki DO Work Phone: [facility] 12-02-2021 11:21-0400 Systolic blood pressure 126 mm[Hg] Rip Riki DO Work Phone: [facility] 12-02-2021 11:00-0400 Body weight 82.56 kg Lab/Port Wstr Work Phone: [facility] 11-12-2021 13:12-0400 Body temperature 97.7 [degF] Treatment Wstr Work Phone: [facility] 11-12-2021 13:12-0400 Diastolic blood pressure 57 mm[Hg] Treatment Wstr Work Phone: [facility] 11-12-2021 13:12-0400 Heart rate 66 /min Treatment Wstr Work Phone: [facility] 11-12-2021 13:12-0400 Respiratory rate 18 /min Treatment Wstr Work Phone: [facility] 11-12-2021 13:12-0400 SaO2% (BldA) [Mass fraction] 98 % Treatment Wstr Work Phone: [facility] 11-12-2021 13:12-0400 Systolic blood pressure 121 mm[Hg] Treatment Wstr Work Phone: [facility] 11-11-2021 10:27-0400 Body temperature 98.1 [degF] Rip Riki DO Work Phone: [facility] 11-11-2021 10:27-0400 Body weight 83.46 kg Rip Rivers DO Work Phone: [facility] 11-11-2021 10:27-0400 Diastolic blood pressure 68 mm[Hg] Rip Jollyi DO Work Phone: [facility] 11-11-2021 10:27-0400 Heart rate 60 /min Rip Rivers DO Work Phone: [facility] 11-11-2021 10:27-0400 SaO2% (BldA) [Mass fraction] 97 % Rip Rivers DO Work Phone: [facility] 11-11-2021 10:27-0400 Systolic blood pressure 137 mm[Hg] Rip Jollyi DO Work Phone: [facility] 11-09-2021 13:51-0400 Body temperature 97.2 [degF] Treatment Wstr Work Phone: [facility] 11-09-2021 13:51-0400 Diastolic blood pressure 56 mm[Hg] Treatment Wstr Work Phone: [facility] 11-09-2021 13:51-0400 Heart rate 66 /min Treatment Wstr Work Phone: [facility] 11-09-2021 13:51-0400 Systolic blood pressure 126 mm[Hg] Treatment Wstr Work Phone: [facility] 10-22-2021 09:55-0400 Diastolic blood pressure 62 mm[Hg] Treatment Wstr Work Phone: [facility] 10-22-2021 09:55-0400 Respiratory rate 63 /min Treatment Wstr Work Phone: [facility] 10-22-2021 09:55-0400 Systolic blood pressure 130 mm[Hg] Treatment Wstr Work Phone: [facility] 10-21-2021 09:16-0400 Body temperature 98.4 [degF] Caity Cote APRN[employer] Work Phone: [facility] 10-21-2021 09:16-0400 Body weight 83.23 kg Caity Cote [employer]LECTRONICS [employer] Work Phone: [facility] 10-21-2021 09:16-0400 Diastolic blood pressure 65 mm[Hg] Caity Cote [employer]RON[employer] Work Phone: [facility] 10-21-2021 09:16-0400 Heart rate 63 /min Caity Cote [employer]RONICS [employer] Work Phone: [facility] 10-21-2021 09:16-0400 Systolic blood pressure 120 mm[Hg] Caity Cote [employer]RONICS [employer] Work Phone: [facility] 10-21-2021 09:02-0400 Body weight 83.23 kg Lab/Port Wstr Work Phone: [facility] 10-01-2021 09:00-0400 Body temperature 97.7 [degF] Treatment Wstr Work Phone: [facility] 10-01-2021 09:00-0400 Diastolic blood pressure 59 mm[Hg] Treatment Wstr Work Phone: [facility] 10-01-2021 09:00-0400 Heart rate 66 /min Treatment Wstr Work Phone: [facility] 10-01-2021 09:00-0400 Systolic blood pressure 124 mm[Hg] Treatment Wstr Work Phone: [facility] 09-30-2021 09:46-0400 Body temperature 98.49 [degF] Rip Masci DO Work Phone: [facility] 09-30-2021 09:46-0400 Body weight 84.14 kg Lab/Port Wstr Work Phone: [facility] 09-30-2021 09:46-0400 Diastolic blood pressure 59 mm[Hg] Rip Masci DO Work Phone: [facility] 09-30-2021 09:46-0400 Heart rate 66 /min Rip Masci DO Work Phone: [facility] 09-30-2021 09:46-0400 SaO2% (BldA) [Mass fraction] 97 % Rip Rivers DO Work Phone: [facility] 09-30-2021 09:46-0400 Systolic blood pressure 103 mm[Hg] Rip Rivers DO Work Phone: [facility] 09-15-2021 08:54-0400 Body height 154.[address] Mitch Mejia Work Phone: [facility] Work Phone: 09-15-2021 08:54-0400 Body mass index (BMI) [Ratio] 35.9 kg/m2 Dr. Mitch Mejia Work Phone: [facility] Work Phone: 09-15-2021 08:54-0400 Body weight 86.[address] Mitch Mejia Work Phone: [facility] Work Phone: 09-15-2021 08:54-0400 Diastolic blood pressure 72 mm[Hg] Dr. Mitch Mejia Work Phone: [facility] Work Phone: 09-15-2021 08:54-0400 Heart rate 62 /min Dr. Mitch Mejia Work Phone: [facility] Work Phone: 09-15-2021 08:54-0400 Respiratory rate 16 /min Dr. Mitch Mejia Work Phone: [facility] Work Phone: 09-15-2021 08:54-0400 SaO2% (BldA) [Mass fraction] 94 % Dr. Mitch Mejia Work Phone: [facility] Work Phone: 09-15-2021 08:54-0400 Systolic blood pressure 127 mm[Hg] Dr. Mitch Mejia Work Phone: [facility] Work Phone: 09-15-2021 08:54-0400 Body height 154.[address] Mitch Mejia Work Phone: [facility] Work Phone: 09-15-2021 08:54-0400 Body mass index (BMI) [Ratio] 35.9 kg/m2 Dr. Mitch Mejia Work Phone: [facility] Work Phone: 09-15-2021 08:54-0400 Body weight 86.[address] Mitch Mejia Work Phone: [facility] Work Phone: 09-15-2021 08:54-0400 Diastolic blood pressure 72 mm[Hg] Dr. Mitch Mejia Work Phone: [facility] Work Phone: 09-15-2021 08:54-0400 Heart rate 62 /min Dr. Mithc Mejia Work Phone: [facility] Work Phone: 09-15-2021 08:54-0400 Respiratory rate 16 /min Dr. Mitch Mejia Work Phone: [facility] Work Phone: 09-15-2021 08:54-0400 SaO2% (BldA) [Mass fraction] 94 % Dr. Mitch Mejia Work Phone: [facility] Work Phone: 09-15-2021 08:54-0400 Systolic blood pressure 127 mm[Hg] Dr. Mitch Mejia Work Phone: [facility] Work Phone: 09-10-2021 08:00-0400 Body temperature 97.39 [degF] Treatment Wstr Work Phone: [facility] 09-10-2021 08:00-0400 Diastolic blood pressure 67 mm[Hg] Treatment Wstr Work Phone: [facility] 09-10-2021 08:00-0400 Heart rate 74 /min Treatment Wstr Work Phone: [facility] 09-10-2021 08:00-0400 Systolic blood pressure 142 mm[Hg] Treatment Wstr Work Phone: [facility] 09-02-2021 10:21-0400 Body temperature 98.4 [degF] Rip [employer] DO Work Phone: [facility] 09-02-2021 10:21-0400 Body weight 86.64 kg Rip [employer] DO Work Phone: [facility] 09-02-2021 10:21-0400 Diastolic blood pressure 73 mm[Hg] Rip [employer] DO Work Phone: [facility] 09-02-2021 10:21-0400 Heart rate 61 /min Rip [employer] DO Work Phone: [facility] 09-02-2021 10:21-0400 SaO2% (BldA) [Mass fraction] 96 % Rip [employer] DO Work Phone: [facility] 09-02-2021 10:21-0400 Systolic blood pressure 120 mm[Hg] Rip [employer] DO Work Phone: [facility] 12-01-2016 15:30-0400 Heart rate 68 /min [facility] Work Phone: 12-01-2016 14:42-0400 BMI (Body Mass Index) 32.32 kg/m2 [facility] Work Phone: 12-01-2016 14:42-0400 BP Diastolic 60 mm[Hg] Beth Fernandez [facility] Work Phone: 12-01-2016 14:42-0400 BP Systolic 120 mm[Hg] Beth [facility] Work Phone: 12-01-2016 14:42-0400 Height 158.75 cm Beth Fernandez [facility] Work Phone: 12-01-2016 14:42-0400 Pulse (Heart Rate) 76 /min Beth Fernandez [facility] Work Phone: 12-01-2016 14:42-0400 Respiratory Rate 20 /min Beth Fernandez [facility] Work Phone: 12-01-2016 14:42-0400 Weight 81.47 kg Beht Fernandez [facility] Work Phone: Encounters Encounter Date Encounter Type Care Provider Facility Start: 12-19-2024 ambulatory Caity Cote DEVELOPER [employer] Faci lity:[facility] Start: 12-13-2024 End: 12-13-2024 ambulatory Treatment Rm 4 Santino [facility] Work Phone: Hematology/Oncology Comment on above: Malignant neoplasm o f lower-inner quadrant of right breast of female, estrogen receptor positive (HCC) (Primary Dx); Malignant neoplasm metastatic to lung, unspecified laterality (HCC); Malignant neoplasm metastatic to bone (HCC); HER2-positive carcinoma of breast (HCC) Start: 12-12-2024 End: 12-12-2024 Patient encounter procedure Caity Cote ELECTRONICS SPECIALIST[employer] Work Phone: Hematology/Oncology Start: 12-12-2024 End: 12-12-2024 ambulatory Lab/Port Sant[facility] Work Phone: Hematology/Oncology Comment on [...] 12-05-2024 End: 12-05-2024 Specialty Pharmacy Nallely Aguilera [facility] Comment on above: SPP Oral Oncology/he matology - Medication Refill (Capecitabine 500 mg) Start: 11-22-2024 End: 11-22-2024 ambulatory Treatment Rm 8 [facility] Work Phone: Hematology/Oncology Comment on above: Malignant neoplasm o f lower-inner quadrant of right breast of female, estrogen receptor positive (HCC) (Primary Dx); Malignant neoplasm metastatic to lung, unspecified laterality (HCC); Malignant neoplasm metastatic to bone (HCC); HER2-positive carcinoma of breast (HCC) Start: 11-21-2024 End: 11-21-2024 Patient encounter procedure Caity Cote APRN.[employer] Work Phone: Hematology/Oncology Start: 11-21-2024 End: 11-21-2024 ambulatory Lab/Port Sant[facility] Work Phone: Hematology/Oncology Comment on [...] 11-15-2024 End: 11-15-2024 Specialty Pharmacy Nallely Lockwood [facility] Comment on above: SPP Oral Oncology/he matology - Medication Refill (Capecitabine 500mg) Start: 11-14-2024 End: 11-14-2024 Refill Rip Rivers DO Work Phone: Hematology/Oncology Comment on above: Refill Request Start: 11-09-2024 End: 11-09-2024 Refill Rip Rivers DO Work Phone: Hematology/Oncology Comment on above: Refill Request Start: 11-01-2024 End: 11-01-2024 ambulatory Treatment 4 Santino [facility] Work Phone: Hematology/Oncology Comment on above: Malignant neoplasm o f lower-inner quadrant of right breast of female, estrogen receptor positive (HCC) (Primary Dx); Malignant neoplasm metastatic to lung, unspecified laterality (HCC); Malignant neoplasm metastatic to bone (HCC); HER2-positive carcinoma of breast (HCC) Start: 10-31-2024 End: 10-31-2024 Patient encounter procedure Caity Cote ELECTRONICS SPECIALIST.[employer] Work Phone: Hematology/Oncology Start: 10-31-2024 End: 10-31-2024 ambulatory Lab/Port Sant[facility] Work Phone: Hematology/Oncology Comment on [...] (HCC) Start: 10-11-2024 End: 10-11-2024 ambulatory Treatment [address] W[address] Work Phone: Hematology/Oncology Comment on above: Malignant neoplasm o f lower-inner quadrant of right breast of female, estrogen receptor positive (HCC) (Primary Dx); Malignant neoplasm metastatic to lung, unspecified laterality (HCC); Malignant neoplasm metastatic to bone (HCC); HER2-positive carcinoma of breast (HCC); 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) Start: 10-10-2024 End: 10-10-2024 Patient encounter procedure Caity Cote ELECTRONICS SPECIALIST[employer] Work Phone: Hematology/Oncology Start: 10-10-2024 End: 10-10-2024 [...] Start: 10-03-2024 End: 10-03-2024 ambulatory Lab/Port Santino [facility] Work Phone: Hematology/Oncology Comment on [...] hemosiderin, quant Isac Billingsley MD Work Phone: [facility] Work Phone: Start: 2024 End: 2024 Patient encounter procedure Isac Billingsley MD Work Phone: [facility] Comment on above: Routine general medi romana examination at health care facility (Primary Dx); Malignant neoplasm metastatic to both lungs; Bronchitis; History of right breast cancer; Heart disease Start: 2024 End: 2024 ambulatory [facility] Ambulatory Start: 2024 End: 2024 Encounter for general adult medical examination without abnormal findings [facility] Ambulatory Start: 09-26-2024 End: 09-26-2024 Telephone encounter Rip Rivers DO Work Phone: Hematology/Oncology Comment on above: Fever Start: 09-26-2024 End: 09-26-2024 ambulatory [facility] Facility:[facility] Start: 09-17-2024 End: 09-17-2024 Specialty Pharmacy Nallely Lockwood [facility] Comment on above: SPP Oral Oncology/he matology - Medication Refill (Capecitabine 500mg) Start: 09-14-2024 End: 09-14-2024 ambulatory [facility] Provider Hematology/Oncology Comment on above: Echo Start: 09-14-2024 End: 09-14-2024 E-mail encounter from caregiver [facility] Provider Hematology/Oncology Start: 09-13-2024 Non-patient / Non-visit [facility] Start: 09-13-2024 End: 09-13-[address] Rip Rivers DO Work Phone: [facility] Work Phone: Start: 09-13-2024 End: 09-13-[address] Rip Rivers DO -Cardiovascular Services Work Phone: Start: 09-13-2024 End: 09-13-2024 ambulatory Rip Rivers Facility:[facility] Start: 09-06-2024 End: 09-06-2024 ambulatory Treatment Rm 6 Santino [facility] Work Phone: Hematology/Oncology Comment on [...] Start: 09-05-2024 End: 09-05-2024 ambulatory Lab/Port Sant[place] [facility] Work Phone: Hematology/Oncology Comment on [...] Start: 08-30-2024 End: 08-30-2024 ambulatory Lab/Port [place] [facility] Work Phone: Hematology/Oncology Comment on above: Malignant neoplasm o f lower-inner quadrant of right breast of female, estrogen receptor positive (HCC) (Primary Dx); Malignant neoplasm metastatic to lung, unspecified laterality (HCC); Malignant neoplasm metastatic to bone (HCC); HER2-positive carcinoma of breast (HCC); Malignant neoplasm metastatic to both lungs (HCC) Start: 08-30-2024 End: 08-30-2024 Subsequent hospital visit by physician [facility] Mob 2 Work Phone: Radiology Comment on above: History of thyroid n odule [Z86.39] Malignant neoplasm o f lower-inner quadrant of right breast of female, estrogen receptor positive (HCC) [C50.311, Z17.0] Start: 08-29-2024 End: 08-29-2024 Telephone encounter Rip Rivers DO Work Phone: Hematology/Oncology Comment on above: Appointment Start: 08-27-2024 End: 08-27-2024 Specialty Pharmacy Nallely Lockwood [facility] Comment on above: SPP Oral Oncology/he matology - Medication Refill (Capecitabine 500mg) Start: 08-16-2024 End: 08-16-2024 ambulatory Treatment Rm 4 Santino [facility] Work Phone: Hematology/Oncology Comment on [...] nodule Start: 08-15-2024 End: 08-15-2024 ambulatory [facility] Work Phone: Hematology/Oncology Comment on above: [...] Request Start: 07-26-2024 End: 07-26-2024 ambulatory Treatment [address] Wstr Work Phone: Hematology/Oncology Comment on [...] 07-16-2024 End: 07-18-2024 Specialty Pharmacy Nallely Aguilera [facility] Comment on above: SPP Oral Oncology/he matology - Medication Refill (Capecitabine 500mg) Refill Request Start: 07-05-2024 End: 07-05-2024 ambulatory Treatment Rm 4 Santino [facility] Work Phone: Hematology/Oncology Comment on [...] End: 07-04-2024 Patient encounter procedure Caity Cote ELECTRONICS SPECIALIST.[employer] Work Phone: Hematology/Oncology Start: 07-04-2024 End: 07-04-2024 ambulatory Lab/Port Sant[place] [facility] Work Phone: Hematology/Oncology Comment on [...] 06-29-2024 End: 06-29-2024 Specialty Pharmacy Lele Tucker [facility] Comment on above: SPP Oral Oncology/he matology - Medication Refill (Capecitabine 500mg) Medication Request Start: 06-14-2024 End: 06-14-2024 ambulatory Treatment Rm 5 [facility] [employer] Work Phone: Hematology/Oncology Comment on above: Malignant [...] 06-13-2024 ambulatory Lab/Port [facility] [employer] Work Phone: Hematology/Oncology Comment on above: Malignant neoplasm o f lower-inner quadrant of right breast of female, estrogen receptor positive (HCC); Malignant neoplasm metastatic to lung, unspecified laterality (HCC); Malignant neoplasm metastatic to bone (HCC); HER2-positive carcinoma of breast (HCC); Malignant neoplasm metastatic to both lungs (HCC) Start: 06-04-2024 End: 06-04-2024 Specialty Pharmacy Nallely Lockwood [facility] Comment on above: SPP Oral Oncology/he matology - Medication Refill (Capecitabine) Start: 06-01-2024 End: 06-03-2024 Refill Rip Rivers DO Work Phone: Hematology/Oncology Comment on above: Refill Request Start: 05-28-2024 End: 07-05-2024 Telephone encounter Rip Rivers DO Work Phone: [address] [place] [address] Start: 05-24-2024 End: 05-24-2024 ambulatory Treatment Rm 4 [facility] [employer] Work Phone: Hematology/Oncology Comment on above: Malignant neoplasm o f lower-inner quadrant of right breast of female, estrogen receptor positive (HCC) (Primary Dx); Malignant neoplasm metastatic to lung, unspecified laterality (HCC); Malignant neoplasm metastatic to bone (HCC); HER2-positive carcinoma of breast (HCC) Start: 05-23-2024 End: 05-23-2024 Patient encounter procedure Rip Rivers DO Work Phone: Hematology/Oncology Start: 05-23-2024 End: 05-23-2024 ambulatory Lab/Port Santino [facility] Work Phone: Hematology/Oncology Comment on [...] 05-21-2024 End: 05-21-2024 ambulatory Tanvi Antony NP Facility:[facility] Start: 05-14-2024 End: 05-14-2024 Specialty Pharmacy Nallely Aguilera [facility] Comment on above: SPP Oral Oncology/he matology - Medication Refill (Capecitabine) Start: 05-04-2024 End: 05-04-2024 ambulatory Treatment Rm 2 Santino [facility] Work Phone: Hematology/Oncology Comment on [...] Start: 05-02-2024 End: 05-02-2024 ambulatory Lab/Port Sant[place] [facility] Work Phone: Hematology/Oncology Comment on above: Malignant neoplasm o f lower-inner quadrant of right breast of female, estrogen receptor positive (HCC); Malignant neoplasm metastatic to lung, unspecified laterality (HCC); Malignant neoplasm metastatic to bone (HCC); HER2-positive carcinoma of breast (HCC); Malignant neoplasm metastatic to both lungs (HCC) Start: 04-24-2024 End: 04-24-2024 ambulatory Lab/Port Sant[place] [facility] Work Phone: Hematology/Oncology Comment on above: Malignant neoplasm o f lower-inner quadrant of right breast of female, estrogen receptor positive (HCC) (Primary Dx) Start: 04-24-2024 End: 04-24-2024 Subsequent hospital visit by physician Ct Prep [facility] Cat Scan Comment on above: Malignant neoplasm o f lower-inner quadrant of right breast of female, estrogen receptor positive (HCC) [C50.311, Z17.0] Start: 04-23-2024 End: 04-23-2024 Telephone encounter Rip Rivers DO Work Phone: Hematology/Oncology Comment on above: Appointment Start: 04-20-2024 End: 04-20-2024 Specialty Pharmacy Nallely Lockwood [facility] Comment on above: SPP Oral Oncology/he matology - Medication Refill (Capecitabine ) Start: 04-12-2024 End: 04-12-2024 ambulatory Treatment Rm 7 Santino [facility] Work Phone: Hematology/Oncology Comment on above: Malignant neoplasm o f lower-inner quadrant of right breast of female, estrogen receptor positive (HCC) (Primary Dx); Malignant neoplasm metastatic to lung, unspecified laterality (HCC); Malignant neoplasm metastatic to bone (HCC); HER2-positive carcinoma of breast (HCC); Chemotherapy induced diarrhea Start: 04-11-2024 End: 04-11-2024 Patient encounter procedure Caity Cote APRN.[employer] Work Phone: Hematology/Oncology Start: 04-11-2024 End: 04-11-2024 ambulatory Lab/Port [place] [facility] Work Phone: Hematology/Oncology Comment on [...] 03-30-2024 End: 03-30-2024 Specialty Pharmacy Jethro Blackmon [facility] Comment on above: SPP Oral Oncology/he matology - Medication Refill (Xeloda) Start: 03-22-2024 End: 03-22-2024 ambulatory Treatment Rm 9 Santino [facility] Work Phone: Hematology/Oncology Comment on [...] Start: 03-21-2024 End: 03-21-2024 ambulatory Lab/Port [place] [facility] Work Phone: Hematology/Oncology Comment on [...] 03-09-2024 End: 03-09-2024 Specialty Pharmacy Lele Tucker [facility] Comment on above: SPP Oral [...] End: 02-27-2024 Patient encounter procedure Caity Cote APRN.[employer] Work Phone: Hematology/Oncology Start: 02-27-2024 End: 02-27-2024 [...] End: 02-03-2024 Patient encounter procedure Caity Cote EREN.[employer] Work Phone: Hematology/Oncology Start: 02-03-2024 End: 02-03-2024 ambulatory Lab/Port [place] [facility] Work Phone: Hematology/Oncology Comment on [...] 01-26-2024 End: 01-26-2024 Specialty Pharmacy Nallely Aguilera [facility] Comment on above: SPP Oral Oncology/he matology - Medication Refill (Capecitabine ) Start: 01-16-2024 End: 01-16-2024 ambulatory Treatment Rm 6 Santino [facility] Work Phone: Hematology/Oncology Comment on [...] in/ ) Start: 01-12-2024 ambulatory Mayco Waleska Facility:[facility] Start: 01-12-2024 End: 01-12-2024 ambulatory Rip Rivers Facility:[facility] Start: 01-11-2024 Telephone encounter Rip perez DO Work Phone: Hematology/Oncology Comment on above: Question Start: 01-09-2024 Telephone encounter Carla Almonte RN He matology/Oncology Comment on above: Hydrogeologist - O ther (Follow-up ) Start: 01-04-2024 End: 01-04-2024 ambulatory WILLIAMS Liseth [facility] Facility:[facility] Start: 01-04-2024 End: 01-04-2024 Subsequent hospital visit by physician Lea [facility] [employer] ([employer]) Work Phone: Cat Scan Comment on above: Malignant neoplasm o f lower-inner quadrant of right breast of female, estrogen receptor positive (HCC) [C50.311, Z17.0] Start: 01-04-2024 Telephone encounter Rip perez DO Work Phone: Hematology/Oncology Comment on above: Results Start: 01-04-2024 End: 01-04-2024 ambulatory [facility] Facility:[facility] Start: 01-04-2024 End: 01-04-2024 Subsequent hospital visit by physician Xr [facility] Work Phone: Radiology Comment on above: Malignant neoplasm o f lower-inner quadrant of right breast of female, estrogen receptor positive (HCC) [C50.311, Z17.0] Start: 01-04-2024 End: 01-04-2024 Patient encounter procedure Rip Rivers DO Work Phone: Hematology/Oncology Start: 01-04-2024 End: 01-04-2024 ambulatory Lab/Port [place] [facility] [employer] Work Phone: Hematology/Oncology Comment on above: Malignant [...] (HCC) Start: 12-30-2023 Specialty Pharmacy Nallely Lockwood [facility] Comment on above: SPP Oral Oncology/he matology - Medication Refill (Capecitabine 500mg) Start: 12-22-2023 End: 12-22-2023 ambulatory Treatment Rm 9 Santino [facility] Work Phone: Hematology/Oncology Comment on above: Malignant neoplasm m etastatic to bone (HCC) (Primary Dx) Start: 12-22-2023 End: 12-22-2023 Subsequent hospital visit by physician [facility] W[facility] Cat Scan Comment on above: Malignant neoplasm o f lower-inner quadrant of right breast of female, estrogen receptor positive (HCC) [C50.311, Z17.0] Start: 12-21-2023 Telephone encounter Rip perez DO Work Phone: Hematology/Oncology Comment on above: Results Start: 12-19-2023 ambulatory Mayco Galeano Facility:[facility] Start: 12-19-2023 End: 12-19-2023 ambulatory Rip Rivers Facility:[facility] Start: 12-15-2023 End: 12-15-2023 ambulatory Treatment Rm 1 Santino [facility] Work Phone: Hematology/Oncology Comment on [...] End: 12-14-2023 Patient encounter procedure Caity Cote [employer] Work Phone: Hematology/Oncology Start: 12-14-2023 End: 12-14-2023 ambulatory Lab/Port [place] [facility] Work Phone: Hematology/Oncology Comment on [...] (HCC) Start: 12-07-2023 Specialty Pharmacy Nallely Lockwood [facility] Comment on above: SPP Oral Oncology/he matology - Medication Refill (Capecitabine 500mg) Start: 11-24-2023 End: 11-24-2023 ambulatory Treatment Rm 6 Santino [facility] Work Phone: Hematology/Oncology Comment on [...] Start: 11-23-2023 End: 11-23-2023 ambulatory Lab/Port [place] [facility] Work Phone: Hematology/Oncology Comment on [...] Almonte RN He matology/Oncology Comment on above: Hydrogeologist - O ther (Oral Anti-Cancer Agents Follow-up ) Start: 11-11-2023 End: 11-11-2023 ambulatory Lab/Port [place] [facility] Work Phone: Hematology/Oncology Comment on [...] End: 11-03-2023 ambulatory Treatment Rm 1 Santino [facility] Work Phone: Hematology/Oncology Comment on above: Malignant neoplasm o f lower-inner quadrant of right breast of female, estrogen receptor positive (HCC) (Primary Dx); Malignant neoplasm metastatic to lung, unspecified laterality (HCC); Malignant neoplasm metastatic to bone (HCC); HER2-positive carcinoma of breast (HCC) Start: 11-02-2023 End: 11-02-2023 Patient encounter procedure Caity Cote APRN.[employer] Work Phone: Hematology/Oncology Start: 11-02-2023 End: 11-02-2023 ambulatory Lab/Port [place] [facility] Work Phone: Hematology/Oncology Comment on [...] Request Start: 11-01-2023 Specialty Pharmacy Nallely Lockwood [facility] Comment on above: SPP Oral [...] End: 10-13-2023 ambulatory Treatment Rm 1 Santino [facility] Work Phone: Hematology/Oncology Comment on [...] Start: 10-11-2023 End: 10-11-2023 ambulatory Lab/Port Sant[place] [facility] Work Phone: Hematology/Oncology Comment on [...] End: 09-22-2023 ambulatory Treatment Rm 6 Santino [facility] Work Phone: Hematology/Oncology Comment on [...] Start: 09-21-2023 End: 09-21-2023 ambulatory Lab/Port [facility] Work Phone: Hematology/Oncology Comment on above: Malignant neoplasm o f lower-inner quadrant of right breast of female, estrogen receptor positive (HCC); Malignant neoplasm metastatic to bone (HCC); Malignant neoplasm metastatic to lung, unspecified laterality (HCC); Chemotherapy-induced cardiomyopathy (HCC) Start: 09-16-2023 Telephone encounter Carla Almonte RN He matology/Oncology Comment on above: Hydrogeologist - O ther (Oral Follow-up ) Start: 09-15-2023 End: 09-15-2023 Subsequent hospital visit by physician [facility] Work Phone: Radiology Comment on above: RUQ pain [R10.11] Start: 09-13-2023 Patient encounter procedure Meenu Garay MD Work Phone: [facility][1] Start: 09-13-2023 Radiation Oncology Note Vaughn Garay MD Work Phone: Radiation Oncology Comment on above: Simulation Note Treatment Planning Start: 09-13-2023 End: 09-13-2023 Nursing evaluation of patient and report Nurse Tg [facility] Work Phone: Radiation Oncology Comment [...] Start: 08-30-2023 End: 08-30-2023 ambulatory Lab/Port [place] Work Phone: Hematology/Oncology Comment on above: Malignant neoplasm m etastatic to bone (HCC) (Primary Dx); Malignant neoplasm of lower-inner quadrant of right breast of female, estrogen receptor positive (HCC); Malignant neoplasm metastatic to lung, unspecified laterality (HCC); Chemotherapy-induced cardiomyopathy (HCC) Start: 08-30-2023 Patient encounter procedure Nallely Aguilera [facility] Comment on above: SPP [...] above: Appointment Start: 08-22-2023 ambulatory RIP RIVERS Facility:[facility] Start: 08-22-2023 End: 08-22-2023 Subsequent hospital visit by physician Injection [facility] Comment on above: Malignant neoplasm o f lower-inner quadrant of right breast of female, estrogen receptor positive (HCC) [C50.311, Z17.0] Start: 08-16-2023 End: 08-17-2023 Emergency department patient visit Dr. Williams Farrell Work Phone: [facility]-Emergency Department Work Phone: Start: 08-11-2023 End: 08-11-2023 ambulatory Treatment Rm 10 Santino [facility] Work Phone: Hematology/Oncology Comment on [...] patient Meenu Garay MD Work Phone: [facility][1] Start: 08-10-2023 End: 08-10-2023 Office outpatient visit 25 minutes Rip Rivers DO Work Phone: Hematology/Oncology Comment on above: Malignant neoplasm o f lower-inner quadrant of right breast of female, estrogen receptor positive (HCC) (Primary Dx); Malignant neoplasm metastatic to bone (HCC); Malignant neoplasm metastatic to lung, unspecified laterality (HCC); Malignant neoplasm metastatic to both lungs (HCC) Start: 08-10-2023 End: 08-10-2023 ambulatory Lab/[place] [facility] Work Phone: Hematology/Oncology Comment on above: Malignant neoplasm o f lower-inner quadrant of right breast of female, estrogen receptor positive (HCC); Malignant neoplasm metastatic to bone (HCC); Malignant neoplasm metastatic to lung, unspecified laterality (HCC); Chemotherapy-induced cardiomyopathy (HCC) Start: 08-03-2023 Refill Rip Gallardo Work Phone: Hematology/Oncology Comment on above: Refill Request Start: 08-03-2023 End: 08-03-2023 Subsequent hospital visit by physician Ct [facility] ([facility]) Work Phone: Cat Scan Comment on above: Malignant neoplasm m etastatic to left lung (HCC) [C78.02] Start: 07-21-2023 End: 07-21-2023 ambulatory Treatment Rm 4 [place] [facility] Work Phone: Hematology/Oncology Comment on above: Malignant neoplasm m etastatic to bone (HCC) (Primary Dx); Malignant neoplasm metastatic to lung, unspecified laterality (HCC); Malignant neoplasm of lower-inner quadrant of right breast of female, estrogen receptor positive (HCC) (HCC) Start: 07-20-2023 End: 07-20-2023 Patient encounter procedure Caity Cote EVARISTO Work Phone: [facility] Start: 07-20-2023 End: 07-20-2023 ambulatory Lab/[place] [facility] Work Phone: Hematology/Oncology Comment on [...] 45 minutes Williams Farrell DO Work Phone: [facility] Comment on above: Malignant [...] Non-patient / Non-visit Dr. Montanez Work Phone: [facility] Start: 05-25-2023 End: 05-25-[address] Mitch Mejia Work Phone: [facility] Work Phone: Start: 05-25-2023 End: 05-25-[address] Mitch Mejia Work Phone: [facility] Work Phone: Start: 04-27-2023 End: 04-27-2023 ambulatory Treatment Rm 4 [place] [facility] Work Phone: Hematology/Oncology Comment on above: Malignant neoplasm m etastatic to bone (HCC) (Primary Dx); Malignant neoplasm metastatic to lung, unspecified laterality (HCC); Malignant neoplasm of lower-inner quadrant of right breast of female, estrogen receptor positive (HCC) Start: 04-26-2023 End: 04-26-2023 Patient encounter procedure Rip Rivers DO Work Phone: [facility] Start: 04-26-2023 End: 04-26-2023 ambulatory Lab/[place] [facility] Work Phone: Hematology/Oncology Comment on [...] Start: 04-06-2023 End: 04-06-2023 ambulatory Caity Cote APRN.[employer] Work Phone: Hematology/Oncology Comment on above: Malignant neoplasm o f lower-inner quadrant of right breast of female, estrogen receptor positive (HCC) (Primary Dx); Malignant neoplasm metastatic to bone (HCC); Malignant neoplasm metastatic to lung, unspecified laterality (HCC) Start: 04-06-2023 End: 04-06-2023 Patient encounter procedure Caity Cote APRN.[employer] Work Phone: [facility] Start: 03-30-2023 End: 03-30-2023 ambulatory Meenu Garay MD Work Phone: Radiation Oncology Comment on above: Malignant neoplasm m etastatic to left lung (HCC) (Primary Dx) Start: 03-30-2023 End: 03-30-2023 Telemedicine consultation with patient Meenu Garay MD, MD Work Phone: [facility] Start: 03-30-2023 Telephone encounter Meenu Heredia MD Work Phone: Radiation Oncology Comment on above: Future Appointment Start: 03-24-2023 Telephone encounter Rip perez DO Work Phone: Hematology/Oncology Comment on above: Results Start: 03-23-2023 End: 03-23-2023 Subsequent hospital visit by physician [facility] Work Phone: Radiology Comment on above: Multiple thyroid nod ules [E04.2] Start: 03-17-2023 End: 03-17-2023 ambulatory Treatment Rm 8 [facility] Work Phone: Hematology/Oncology Comment on above: Malignant neoplasm m etastatic to bone (HCC) (Primary Dx); Malignant neoplasm metastatic to lung, unspecified laterality (HCC); Malignant neoplasm of lower-inner quadrant of right breast of female, estrogen receptor positive (HCC) Start: 03-16-2023 End: 03-16-2023 ambulatory Lab/[place] [facility] Work Phone: Hematology/Oncology Comment on above: Malignant neoplasm m etastatic to bone (HCC) (Primary Dx); Malignant neoplasm of lower-inner quadrant of right breast of female, estrogen receptor positive (HCC) ; Malignant neoplasm metastatic to lung, unspecified laterality (HCC); Chemotherapy-induced cardiomyopathy (HCC) Start: 03-11-2023 End: 03-11-2023 Subsequent hospital visit by physician [facility] ([facility]) Work Phone: Cat Scan Comment on above: Malignant neoplasm m etastatic to bone (HCC) [C79.51] Start: 02-23-2023 End: 02-23-2023 Patient encounter procedure Rip Rivers DO Work Phone: [facility] Comment on above: Malignant neoplasm m etastatic [...] Dr. Mitch Mejia Work Phone: [facility] Work Phone: Start: 02-16-2023 End: 02-17-[address] Mitch Mejia Work Phone: [facility] Work Phone: Start: 02-16-2023 Telephone encounter Meenu Heredia MD Work Phone: Radiation Oncology Comment on above: symptoms Start: 02-09-2023 Patient encounter procedure Meenu Garay MD, MD Work Phone: [facility] Start: 02-09-2023 Radiation Oncology Note Vaughn Garay MD Work Phone: Radiation Oncology Comment on above: Treatment Planning Simulation Note Start: 02-09-2023 End: 02-09-2023 Nursing evaluation of patient and report Nurse Tg [facility] Work Phone: Radiation Oncology Comment [...] / Non-visit Dr. Montanez Work Phone: [facility] Start: 01-28-2023 End: 01-28-[address] Mitch Mejia Work Phone: [facility] Work Phone: Start: 01-28-2023 End: 01-28-[address] Mitch Mejia Work Phone: [facility] Work Phone: Start: 01-26-2023 End: 01-26-2023 Subsequent hospital visit by physician [facility] ([facility]) Work Phone: Cat Scan Comment on above: Malignant neoplasm o f lower-inner quadrant of right breast of female, estrogen receptor positive (HCC) [C50.311, Z17.0] Start: 01-13-2023 End: 01-13-2023 ambulatory Treatment Rm 4 [place] [facility] Work Phone: Hematology/Oncology Comment on above: Malignant neoplasm m etastatic to bone (HCC) (Primary Dx); Malignant neoplasm metastatic to lung, unspecified laterality (HCC); Malignant neoplasm of lower-inner quadrant of right breast of female, estrogen receptor positive (HCC); Chemotherapy induced diarrhea Start: 01-12-2023 End: 01-12-2023 Patient encounter procedure Rip Rivers DO Work Phone: [facility] Start: 01-12-2023 End: 01-12-2023 ambulatory Lab/[place] [facility] Work Phone: Hematology/Oncology Comment on [...] encounter procedure Rip Rivers DO Work Phone: [facility] Start: 12-02-2022 End: 12-02-2022 ambulatory Treatment Rm 10 [place] [facility] Work Phone: Hematology/Oncology Comment on above: Malignant neoplasm m etastatic to bone (HCC) (Primary Dx); Malignant neoplasm metastatic to lung, unspecified laterality (HCC); Malignant neoplasm of lower-inner quadrant of right breast of female, estrogen receptor positive (HCC) Start: 12-01-2022 End: 12-01-2022 Patient encounter procedure Rip Rivers DO Work Phone: [facility] Start: 12-01-2022 End: 12-01-2022 ambulatory Lab/[place] [facility] Work Phone: Hematology/Oncology Comment on [...] End: 11-11-2022 ambulatory Treatment Rm 5 [place] [facility] Work Phone: Hematology/Oncology Comment on above: Malignant neoplasm m etastatic to bone (HCC) (Primary Dx); Malignant neoplasm metastatic to lung, unspecified laterality (HCC); Malignant neoplasm of lower-inner quadrant of right breast of female, estrogen receptor positive (HCC) Start: 11-10-2022 End: 11-10-2022 Subsequent hospital visit by physician [facility] Work Phone: Radiology Comment on above: Chronic left sacroil iac pain [M53.3, G89.29] Start: 11-10-2022 End: 11-10-2022 Patient encounter procedure Rip Rivers DO Work Phone: [facility] Start: 11-10-2022 End: 11-10-2022 ambulatory Lab/[place] [facility] Work Phone: Hematology/Oncology Comment on [...] / Non-visit Dr. Montanez Work Phone: [facility] Start: 11-03-2022 End: 11-03-[address] Mitch Mejia Work Phone: [facility] Work Phone: Start: 10-20-2022 [...] encounter procedure Rip Rivers DO Work Phone: [facility] Start: 10-18-2022 End: 10-18-2022 ambulatory Lab/[place] [facility] Work Phone: Hematology/Oncology Comment on above: Malignant neoplasm m etastatic to lung, unspecified laterality (HCC); Malignant neoplasm metastatic to bone (HCC); Malignant neoplasm of lower-inner quadrant of right breast of female, estrogen receptor positive (HCC) Start: 10-18-2022 End: 10-18-2022 Subsequent hospital visit by physician Ct [facility] ([facility]) Work Phone: Cat Scan Comment on above: Malignant neoplasm o f lower-inner quadrant of right breast of female, estrogen receptor positive (HCC) [C50.311, Z17.0] Start: 09-30-2022 End: 09-30-2022 ambulatory Treatment Rm 9 [place] [facility] Work Phone: Hematology/Oncology Comment on above: Malignant neoplasm m etastatic to lung, unspecified laterality (HCC) (Primary Dx); Malignant neoplasm metastatic to bone (HCC); Malignant neoplasm of lower-inner quadrant of right breast of female, estrogen receptor positive (HCC) Start: 09-29-2022 Refill Rip Gallardo Work Phone: Hematology/Oncology Comment on above: Refill Request Start: 09-22-2022 End: 09-22-2022 Subsequent hospital visit by physician Diagnostic Mammo [facility] Mammogram Start: 09-09-2022 End: 09-09-2022 ambulatory Treatment Rm 13 [place] [facility] Work Phone: Hematology/Oncology Comment on above: Malignant neoplasm m etastatic to bone (HCC) (Primary Dx); Malignant neoplasm metastatic to lung, unspecified laterality (HCC); Malignant neoplasm of lower-inner quadrant of right breast of female, estrogen receptor positive (HCC) Start: 09-08-2022 End: 09-08-2022 Patient encounter procedure Rip Rivers DO Work Phone: [facility] [place] Start: 09-08-2022 End: 09-08-2022 ambulatory Lab/[place] [facility] Work Phone: Hematology/Oncology Comment on [...] 08-24-2022 Documentation procedure Mammog damaris Coordinator [facility] Start: 08-24-2022 Letter encounter Mammography Coordinator [facility] Start: 08-24-2022 Telephone encounter Rip perez DO Work Phone: Hematology/Oncology Comment on above: Results (Screening m ammogram) Start: 08-23-2022 End: 08-23-2022 Subsequent hospital visit by physician Screen Mammo [facility] Mammogram Comment on above: Encounter [...] procedure Rip Rivers DO Work Phone: [facility] [place] Start: 07-29-2022 Telephone encounter Rip perez DO Work Phone: Hematology/Oncology Comment on above: Results (CTs) Start: 07-29-2022 End: 07-29-2022 ambulatory Treatment Rm 13 [place] [facility] Work Phone: Hematology/Oncology Comment on [...] End: 07-29-2022 Patient encounter procedure Caity Cote APRN.[employer] Work Phone: [facility] Start: 07-27-2022 End: 07-27-2022 Subsequent hospital visit by physician Ct Prep [facility] Cat Scan Comment on above: Malignant neoplasm o f lower-inner quadrant of right breast of female, estrogen receptor positive (HCC) [C50.311, Z17.0] Start: 07-08-2022 End: 07-08-2022 ambulatory Treatment Rm 13 [place] [facility] Work Phone: Hematology/Oncology Comment on above: Bone metastases (HCC ) (Primary Dx); Malignant neoplasm metastatic to lung, unspecified laterality (HCC); Malignant neoplasm of lower-inner quadrant of right breast of female, estrogen receptor positive (HCC) Start: 07-06-2022 End: 07-06-2022 Patient encounter procedure Rip Rivers DO Work Phone: [facility] Start: 07-06-2022 End: 07-06-2022 ambulatory Lab/[place] [facility] Work Phone: Hematology/Oncology Comment on [...] Non-patient / Non-visit Dr. Montanez Work Phone: [facility] Start: 06-25-2022 End: 06-25-[address] Mitch Mejia Work Phone: [facility] Work Phone: Start: 06-25-2022 End: 06-25-[address] Mitch Mejia Work Phone: [facility] Start: 06-17-2022 End: 06-17-2022 [...] End: 06-15-2022 Patient encounter procedure Caity Cote APRN.[employer] Work Phone: [facility] Start: 06-15-2022 End: 06-15-2022 ambulatory [...] procedure Rip Rivers DO Work Phone: [facility] Start: 05-25-2022 End: 05-25-2022 ambulatory Lab/[place] [facility] Work Phone: Hematology/Oncology Comment on [...] lungs (HCC) Start: 05-21-2022 Refill Caity silverio APRN.[employer] Work Phone: Hematology/Oncology Comment on above: Refill Request Start: 05-10-2022 Refill Rip Gallardo Work Phone: Hematology/Oncology Comment on above: Refill Request Start: 05-06-2022 End: 05-06-2022 ambulatory Treatment Rm 5 [place] [facility] Work Phone: Hematology/Oncology Comment on above: Malignant neoplasm m etastatic to lung, unspecified laterality (HCC) (Primary Dx); Bone metastases (HCC); Malignant neoplasm of lower-inner quadrant of right breast of female, estrogen receptor positive (HCC); Chemotherapy induced diarrhea Start: 04-26-2022 End: 04-26-2022 ambulatory Lab/[place] [facility] Work Phone: Hematology/Oncology Comment on above: Malignant neoplasm m etastatic to lung, unspecified laterality (HCC) (Primary Dx) Start: 04-26-2022 End: 04-26-2022 Subsequent hospital visit by physician Ct Prep [facility] Cat Scan Comment on above: Malignant neoplasm o f lower-inner quadrant of right breast of female, estrogen receptor positive (HCC) [C50.311, Z17.0] Start: 04-22-2022 Non-patient / Non-visit Dr. Montanez Work Phone: [facility] Start: 04-22-2022 End: 04-22-[address] Mitch Mejia Work Phone: [facility] Work Phone: Start: 04-22-2022 End: 04-22-[address] Mitch Mejia Work Phone: [facility] Start: 04-19-2022 Telephone encounter Caity bhandari APRN.[employer] Work Phone: Hematology/Oncology Comment on above: Electronic Communica tion Start: 04-15-2022 End: 04-15-2022 ambulatory Treatment Rm 5 [place] [facility] Work Phone: Hematology/Oncology Comment on above: Bone metastases (HCC ) (Primary Dx); Malignant neoplasm metastatic to lung, unspecified laterality (HCC); Malignant neoplasm of lower-inner quadrant of right breast of female, estrogen receptor positive (HCC) Start: 04-14-2022 Telephone encounter Rip perez DO Work Phone: Hematology/Oncology Comment on above: AVS Start: 04-14-2022 End: 04-14-2022 Patient encounter procedure Caity Cote APRN.[employer] Work Phone: [facility] Start: 04-14-2022 End: 04-14-2022 ambulatory Lab/[place] [facility] Work Phone: Hematology/Oncology Comment on [...] encounter procedure Dr. Mitch Mejia Work Phone: [facility] Start: 03-18-2022 End: 03-18-2022 ambulatory Treatment [...] Start: 02-25-2022 End: 02-25-2022 ambulatory Treatment 8 [facility] Work Phone: Hematology/Oncology Comment on above: Bone metastases (HCC ) (Primary Dx); Malignant neoplasm metastatic to lung, unspecified laterality (HCC); Malignant neoplasm of lower-inner quadrant of right breast of female, estrogen receptor positive (HCC) Start: 02-24-2022 End: 02-24-2022 Patient encounter procedure Caity Cote APRN.[employer] Work Phone: [facility] Start: 02-24-2022 End: 02-24-2022 ambulatory [...] End: 02-04-2022 ambulatory Treatment Rm 5 [place] [facility] Work Phone: Hematology/Oncology Comment on [...] encounter procedure Rip Rivers DO Work Phone: [facility] Start: 02-03-2022 End: 02-03-2022 ambulatory Lab/[place] [facility] Work Phone: Hematology/Oncology Comment on [...] End: 01-14-2022 ambulatory Treatment Rm 9 [place] [facility] Work Phone: Hematology/Oncology Comment on above: Bone metastases (HCC ) (Primary Dx); Malignant neoplasm metastatic to lung, unspecified laterality (HCC); Malignant neoplasm of lower-inner quadrant of right breast of female, estrogen receptor positive (HCC) Start: 01-08-2022 Non-patient / Non-visit Dr. Montanez Work Phone: [facility] Start: 01-08-2022 End: 01-08-[address] Mitch Mejia Work Phone: [facility] Start: 01-07-2022 Telephone encounter Rip perez DO Work Phone: Hematology/Oncology Comment on above: Orders Start: 01-07-2022 End: 01-07-2022 ambulatory Lab/[place] [facility] Work Phone: Hematology/Oncology Comment on above: Malignant neoplasm m etastatic to both lungs (HCC) (Primary Dx); Malignant neoplasm metastatic to lung, unspecified laterality (HCC); Bone metastases (HCC); Malignant neoplasm of lower-inner quadrant of right breast of female, estrogen receptor positive (HCC) Start: 01-07-2022 End: 01-07-2022 Subsequent hospital visit by physician Ct Prep [facility] Cat Scan Comment on above: Malignant neoplasm o f lower-inner quadrant of right breast of female, estrogen receptor positive (HCC) [C50.311, Z17.0] Start: 12-25-2021 Telephone encounter Rip perez DO Work Phone: Hematology/Oncology Comment on above: Patient Question Start: 12-24-2021 Telephone encounter Caity bhandari APRN.[employer] Work Phone: Hematology/Oncology Comment on above: Orders Start: 12-24-2021 End: 12-24-2021 ambulatory Treatment Rm 8 [facility] Work Phone: Hematology/Oncology Comment on above: Bone metastases (HCC ) (Primary Dx); Malignant neoplasm metastatic to lung, unspecified laterality (HCC); Malignant neoplasm of lower-inner quadrant of right breast of female, estrogen receptor positive (HCC) Start: 12-23-2021 End: 12-23-2021 Patient encounter procedure Caity Cote APRN.[employer] Work Phone: [facility] Start: 12-23-2021 End: 12-23-2021 ambulatory Lab/[place] [facility] Work Phone: Hematology/Oncology Comment on [...] encounter procedure Rip Rivers DO Work Phone: [facility] Start: 12-02-2021 End: 06-29-2022 ambulatory Lab/[place] [facility] Work Phone: Hematology/Oncology Comment on [...] End: 11-12-2021 ambulatory Treatment Rm 2 [place] [facility] Work Phone: Hematology/Oncology Comment on above: Bone metastases (HCC ) (Primary Dx); Malignant neoplasm metastatic to lung, unspecified laterality (HCC); Malignant neoplasm of lower-inner quadrant of right breast of female, estrogen receptor positive (HCC) Start: 11-11-2021 End: 11-11-2021 ambulatory Rip Rivers DO Work Phone: Hematology/Oncology Comment on above: Malignant neoplasm o f lower-inner quadrant of right breast of female, estrogen receptor positive (HCC) (Primary Dx); Skin, 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); Bone metastases (HCC); Malignant neoplasm metastatic to both lungs (HCC) Start: 11-11-2021 End: 11-11-2021 Patient encounter procedure Rip Rivers DO Work Phone: [facility] Start: 11-09-2021 End: 11-09-2021 ambulatory Treatment Rm 6 [facility] Work Phone: Hematology/Oncology Comment on above: Bone metastases (HCC ) (Primary Dx); Chemotherapy induced diarrhea Start: 11-06-2021 End: 11-06-2021 ambulatory Lab/Port [facility] Work Phone: Hematology/Oncology Comment on above: Malignant neoplasm m etastatic to lung, unspecified laterality (HCC); Bone metastases (HCC); Malignant neoplasm of lower-inner quadrant of right breast of female, estrogen receptor positive (HCC) Start: 11-06-2021 End: 11-06-2021 Subsequent hospital visit by physician Lea [facility] ([facility]) Work Phone: Cat Scan Comment on above: Malignant neoplasm o f lower-inner quadrant of right breast of female, estrogen receptor positive (HCC) [C50.311, Z17.0] Start: 10-27-2021 Non-patient / Non-visit Dr. Montanez Work Phone: [facility] Start: 10-27-2021 End: 10-27-[address] Mitch Mejia Work Phone: [facility] Start: 10-22-2021 End: 10-22-2021 ambulatory Treatment Rm 12 [facility] Work Phone: Hematology/Oncology Comment on above: Bone metastases (HCC ) (Primary Dx); Malignant neoplasm metastatic to lung, unspecified laterality (HCC); Malignant neoplasm of lower-inner quadrant of right breast of female, estrogen receptor positive (HCC) Start: 10-21-2021 Telephone encounter Caity bhandari APRN.[employer] Work Phone: Hematology/Oncology Comment on above: Orders Start: 10-21-2021 End: 10-21-2021 Patient encounter procedure Caity Cote APRN.[employer] Work Phone: [facility] Start: 10-21-2021 End: 10-21-2021 ambulatory [...] encounter procedure Rip Rivers DO Work Phone: [facility] Start: 09-30-2021 End: 09-30-2021 ambulatory Lab[facility] [...] encounter procedure Dr. Mitch Mejia Work Phone: [facility] Start: 09-11-2021 Telephone encounter Carla Almonte RN He matology/Oncology Comment on above: Hydrogeologist - O ther (C1D1 Post Treatment Call [...] 09-09-[address] Work Phone: [facility] Start: 09-09-2021 End: 09-09-2021 Nutrition therapy Cris [...] Hematology/Oncology Comment on above: Psychosocial Assessm ent Hydrogeologist - O ther (Nutrition Consult/Treatment Question ) Start: 09-03-2021 End: 09-03-2021 program lead [facility] Work Phone: Hematology/Oncology Comment on above: Malignant neoplasm o f lower-inner quadrant of right female breast, unspecified estrogen receptor status (HCC) (Primary Dx) Start: 09-02-2021 Telephone encounter Carla Almonte RN He matology/Oncology Comment on above: Hydrogeologist - O ther (Follow-up/US ) Start: 09-02-2021 End: 09-02-2021 Patient encounter procedure Rip Rivers DO Work Phone: [facility] Start: 09-02-2021 End: 09-02-2021 ambulatory [...] Non-visit Dr. Montanez Work Phone: [facility] Start: 07-13-2021 End: 07-13-[address] Mitch Mejia Work Phone: [facility] Procedures Date Procedure Procedure [...] Start: 12-15-2023 CREATININE BLD Caity Ca rpenter ELECTRONICS SPECIALIST.[employer] Work Phone: Start: 12-14-2023 Blood count complete [...] abdomen & pelvis w/contrast material Caity Cote ELECTRONICS SPECIALIST.[employer] Work Phone: Start: 04-26-2022 Ct thorax w/contrast material Caity Cote ELECTRONICS SPECIALIST.[employer] Work Phone: Start: 04-14-2022 Blood count complete [...] abdomen & pelvis w/contrast material Caity Cote ELECTRONICS SPECIALIST.[employer] Work Phone: Start: 01-07-2022 Ct thorax w/contrast material [employer] SPECIALIST.[employer] Work Phone: Start: 01-07-2022 Blood count complete auto&auto difrntl wbc Rip Borja Masci DO Work Phone: Start: 12-23-2021 Blood count complete auto&auto difrntl wbc Rip Rivers DO Work Phone: Start: 12-02-2021 Blood count complete auto&auto difrntl wbc Rip Rivers DO Work Phone: Start: 11-11-2021 Adult depression scr eening assessment Rip Rivers DO Work Phone: Start: 11-06-2021 Ct abdomen & pelvis w/contrast material [place] [employer] SPECIALIST.[employer] Work Phone: Start: 11-06-2021 Ct thorax w/contrast material [place] [employer] SPECIALIST.[employer] Work Phone: Start: 11-06-2021 Blood count complete auto&auto difrntl wbc Rip Rivers DO Work Phone: Start: 10-21-2021 Blood count complete auto&auto difrntl wbc [employer] SPECIALIST.[employer] Work Phone: Start: 09-30-2021 Blood count complete auto&auto difrntl wbc [place] [employer] SPECIALIST.[employer] Work Phone: Start: 09-07-2021 Us soft tissue head & neck real time imge docm Rip Rivers DO Work Phone: Start: 09-02-2021 Blood count complete auto&auto difrntl wbc [place] [employer] SPECIALIST[employer] Work Phone: Start: 08-25-[address] atten uation skull base mid-thigh Rip Rivers DO Work Phone: Start: 01-29-2021 Adult depression scr eening assessment Pet 2 Start: 05-18-2018 Mammography Pet 2 Start: 11-30-2016 Chemotherapy Chemotherapy Leesa Garcia Plan of Treatment Date Care Activity Detail Author Start: 12-13-2027 Diabetes Screening Diabetes Screenin g [facility] Start: 11-22-2027 Diabetes Screening Diabetes Screenin [facility] Start: 11-01-2027 Diabetes Screening Diabetes Screenin g [facility] Start: 10-11-2027 Diabetes Screening Diabetes Screenin g [facility] Start: 10-04-2027 Diabetes Screening Diabetes Screenin g [facility] Start: 09-06-2027 Diabetes Screening Diabetes Screenin g [facility] Start: 08-31-2027 Diabetes Screening Diabetes Screenin g [facility] Start: 08-16-2027 Diabetes Screening Diabetes Screenin g [facility] Start: 07-25-2027 Diabetes Screening Diabetes Screenin g [facility] Start: 07-04-2027 Diabetes Screening Diabetes Screenin g [facility] Start: 06-13-2027 Diabetes Screening Diabetes Screenin g [facility] Start: 05-23-2027 Diabetes Screening Diabetes Screenin g [facility] Start: 05-02-2027 Diabetes Screening Diabetes Screenin g [facility] Start: 04-11-2027 Diabetes Screening Diabetes Screenin g [facility] Start: 03-21-2027 Diabetes Screening Diabetes Screenin g [facility] Start: 02-26-2027 Diabetes Screening Diabetes Screenin g [facility] Start: 02-02-2027 Diabetes Screening Diabetes Screenin g [facility] Start: 01-15-2027 Diabetes Screening Diabetes Screenin g [facility] Start: 01-03-2027 Diabetes Screening Diabetes Screenin g [facility] Start: 12-13-2026 Diabetes Screening Diabetes Screenin g [facility] Start: 11-22-2026 Diabetes Screening Diabetes Screenin g [facility] Start: 11-01-2026 Diabetes Screening Diabetes Screenin g [facility] Start: 10-10-2026 Diabetes Screening Diabetes Screenin g [facility] Start: 09-20-2026 Diabetes Screening Diabetes Screenin g [facility] Start: 08-29-2026 Diabetes Screening Diabetes Screenin g [facility] Start: 08-09-2026 Diabetes Screening Diabetes Screenin g [facility] Start: 07-20-2026 Diabetes Screening Diabetes Screenin g [facility] Start: 04-26-2026 Diabetes Screening Diabetes Screenin g [facility] Start: 04-06-2026 Diabetes Screening Diabetes Screenin g [facility] Start: 03-16-2026 Diabetes Screening Diabetes Screenin g [facility] Start: 02-23-2026 Diabetes Screening Diabetes Screenin g [facility] Start: 02-02-2026 DIABETES SCREEN DIABETES SCREEN [facility] Start: 02-02-2026 Diabetes Screening Diabetes Screenin g [facility] Start: 01-12-2026 DIABETES SCREEN DIABETES SCREEN [facility] Start: 12-22-2025 DIABETES SCREEN DIABETES SCREEN [facility] Start: 12-01-2025 DIABETES SCREEN DIABETES SCREEN [facility] Start: 11-10-2025 DIABETES SCREEN DIABETES SCREEN [facility] Start: 10-18-2025 DIABETES SCREEN DIABETES SCREEN [facility] Start: 09-30-2025 DIABETES SCREEN DIABETES SCREEN [facility] Start: 09-30-2025 End: 09-30-2025 Patient encounter procedure 09/30/2025 10:40 AM EDT Office Visit [facility] [address] [place] [address] Isac Billingsley MD [address] [facility] [address] [place] [id number] [facility] Start: 09-29-2025 Medicare Annual Well ness Visit Medicare Annual Wellness Visit (AWV) [facility] Start: 09-08-2025 DIABETES SCREEN DIABETES SCREEN [facility] [...] 02-04-2025 Influenza vaccination Influenza Vacc ine (#1) [facility] Start: 02-03-2025 DIABETES SCREEN DIABETES SCREEN [facility] Start: 01-24-2025 End: 01-24-2025 ambulatory 01/24/2025 8:30 AM EDT Infusion Center Hematology/Oncology [address] [place] [address] Q3WK ONTRUZANT(PORT)/LAB&OV 01/23* THUR EARLY AM APPTS - NEXT Q3MO ZOMETA DUE 03/28 Hematology/Oncology Comment on above: Q3WK ONTRUZANT(PORT) /LAB&OV 01/23* THUR EARLY AM APPTS - NEXT Q3MO ZOMETA DUE 03/28 Start: 01-23-2025 End: 01-23-2025 ambulatory Hematology/Oncology Comment on above: (SO)CBC/CMP(S)(PORT) /OV TODAY* OV/LABS EARLY(PORT)C HEMO 01/24* MASCI - WED EARLY AM APPTS Start: 01-07-2025 DIABETES SCREEN DIABETES SCREEN [facility] Start: 01-03-2025 End: 01-03-2025 ambulatory Hematology/Oncology Comment [...] cardiomyopathy (HCC) Expected: 12/26/2024 (Approximate), Expires: 03/27/2025 [facility] Comment on above: Expected: 12/26/2024 (Approximate), Expires: [...] cardiomyopathy (HCC) Expected: 12/26/2024 (Approximate), Expires: 01/11/2026 [facility] Work Phone: Comment on above: Expected: [...] cardiomyopathy (HCC) Expected: 12/26/2024 (Approximate), Expires: 01/11/2026 [facility] Comment on above: Expected: 12/26/2024 (Approximate), Expires: 01/11/2026 Start: 12-26-2024 End: 12-26-2024 ambulatory 12/26/2024 1:45 PM EDT Infusion Center Hematology/Oncology [address] [place], [place] [address] Wstr, Lab/Port [place] [address] [place], [place] [id number] ACCESS PORT FOR CT Hematology/Oncology Comment on [...] [id number]] Start: 12-23-2024 DIABETES SCREEN DIABETES SCREEN [facility] Start: 12-13-2024 End: 12-13-2024 ambulatory Hematology/Oncology Comment [...] AM EDT Specialty Pharmacy [facility] [address] [place] [id number] [place] [address] Pharmacist, [facility] [address] [place] [address] [place] [address] Refill - Capecitabine [21DS Omnisys] C012/13 RTS 7/ LVM 7/ [facility] Comment on above: Refill - Capecitabin e [21DS Omnisys] C07/10 RTS 7/2 LVM 7/2 Start: 12-06-2024 End: 12-06-2024 Specialty Pharmacy 12/06/2024 7:30 AM EDT Specialty Pharmacy [facility] [address] [place] [address] [address] [place] [address] Pharmacist, [facility] [address] [place] [address] [place] [address] Refill - Capecitabine [21DS Omnisys] C012/13 [facility] Comment on above: Refill - Capecitabin e [21DS Omnisys] Start: 12-02-2024 DIABETES SCREEN DIABETES SCREEN [facility] Start: 11-29-2024 End: 11-29-2024 ambulatory 11/29/2024 2:00 PM EDT Infusion Center Hematology/Oncology [address] [place] [address] Q3WK ONTRUZANT(PORT)/LAB&OV 11/28* - WED/THUR APPTS -Q3MO [...] EDT Infusion Center Hematology/Oncology [address] [place] [address] Q3WK ONTRUZANT(PORT)/LAB&OV 11/21* - THUR EARLY AM [...] EDT Specialty Pharmacy [facility] [address] [facility] [address] [place] [address] Pharmacist, [facility] [address] [place] [address] [place] [address] Refill - Capecitabine [21DS Omnisys] C011/22 [facility] [...] [facility] Start: 11-06-2024 DIABETES SCREEN DIABETES SCREEN [facility] Start: 11-01-2024 End: 11-01-2024 ambulatory Hematology/Oncology Comment [...] AM EDT Specialty Pharmacy [facility] [place] [address] Pharmacist, [facility] [address] [place] [address] [place] [phone] Refill - Capecitabine [21D] -Omnisys] - See call log 10/10 pt called setting up refill call accordingly [facility] Comment on above: Refill - Capecitabin e [D] -Omnisys] - See call log 10/10 pt called setting up refill call accordingly Start: 10-21-2024 DIABETES SCREEN DIABETES SCREEN [facility] Start: 10-18-2024 End: 10-18-2024 ambulatory Hematology/Oncology Comment [...] EDT Specialty Pharmacy [facility] [address] [place], [place] [phone] Pharmacist, [facility] [address] [place] [address] [place], [place] [phone] Refill - Capecitabine [21D] - - [facility] Comment on above: Refill - Capecitabin e [21D] - - Start: 09-30-2024 DIABETES SCREEN DIABETES SCREEN [facility] Start: 09-27-2024 End: 09-27-2024 ambulatory 09/27/2024 2:00 PM EDT Infusion Center Hematology/Oncology [address] [place] [address] Q3MO ZOMETA/Q3WK ONTRUZANT(PORT)/LAB&OV 09/26/MDCR* - wed/amarilys appts -Q3MO ZOMETA DUE AGAIN 12/20 Hematology/Oncology Comment on above: Q3MO ZOMETA/Q3WK ONT RUZANT(PORT)/LAB&OV 09/26/MDCR* - wed/amarilys appts -Q3MO ZOMETA DUE AGAIN 12/20 Start: 09-26-2024 COVID-19 Vaccine (7 - Moderna risk season) COVID-19 Vaccine (7 - Moderna risk season) [facility] Start: 09-26-2024 Covid-19 Vaccine (8 - Moderna risk season) Covid-19 Vaccine (8 - Moderna risk season) [facility] Start: 09-26-2024 End: 09-26-2024 ambulatory Hematology/Oncology Comment on above: (SO)CBC/CMP(S)(PORT) /OV TODAY* OV/LABS EARLY(PORT)C HEMO 09/27* - wed/amarilys appts Start: 09-17-2024 End: 09-17-2024 Specialty Pharmacy 09/17/2024 7:30 AM EDT Specialty Pharmacy [facility] [address] [place] [address] Drive [address] [place] [address] Pharmacist, [facility] [address] [place] [address] [place] [address] Refill - Capecitabine [21D] - - [facility] Comment on above: Refill - Capecitabin e [21D] - C4/21 - Start: 09-06-2024 End: 09-06-2024 ambulatory 09/06/2024 2:30 PM EDT Infusion Center Hematology/Oncology [address] [place], [place] [id number] Q3WK ONTRUZANT(PORT)/LAB&OV 4/2/MDCR* - wed/amarilys appts -Q3MO ZOMETA DUE 09/27 Hematology/Oncology Comment on above: Q3WK ONTRUZANT(PORT) /LAB&OV 4/2/MDCR* - wed/amarilys appts -Q3MO ZOMETA DUE 09/27 Start: 09-05-2024 End: 09-05-2024 ambulatory Hematology/Oncology Comment on above: (SO)CBC/CMP(S)(PORT) /OV TODAY* OV/LABS EARLY(PORT)C HEMO 4/3* - wed/amarilys appts OV/LABS EARLY(PORT)C HEMO 4/3* - wed/amarilys appts masci Start: 09-02-2024 DIABETES SCREEN DIABETES SCREEN [facility] Start: 08-30-2024 End: 08-30-2024 Patient encounter procedure 08/30/2024 9:20 AM EDT Appointment Cat Scan [address] [place], [place] [id number] Malignant neoplasm of lower-inner quadrant of right breast of female, estrogen r... Cat Scan Comment on above: Malignant neoplasm o f lower-inner quadrant of right breast of female, estrogen r... Start: 08-30-2024 End: 08-30-2024 ambulatory 08/30/2024 9:00 AM EDT Infusion Center Hematology/Oncology [address] [place] [address] Wstr, Lab/Port [place] [address] [place] [address]* Hematology/Oncology Comment on above: ACCESS PORT FOR CT* Start: 08-30-2024 End: 08-30-2024 Patient encounter procedure Radiology Comment on above: History of thyroid n odule [Z86.39] Malignant neoplasm o f lower-inner quadrant of right breast of female, estrogen r... Start: 08-27-2024 End: 08-27-2024 Specialty Pharmacy 08/27/2024 7:00 AM EDT Specialty Pharmacy [facility] [place] [address] Pharmacist, [facility] [address] [place] [address] [place] [address] Refill - Capecitabine [21DS] C009/03 [facility] Comment on above: Refill - Capecitabin e [21DS] C03/ Start: 08-16-2024 End: 08-16-2024 ambulatory 08/16/2024 2:30 PM EDT Infusion Center Hematology/Oncology [address] [place] [address] Q3WK ONTRUZANT(PORT)/LAB&OV 08/15/MDCR* - wed/amarilys appts -Q3MO ZOMETA DUE 09/27 Hematology/Oncology Comment on above: Q3WK ONTRUZANT(PORT) /LAB&OV 08/15/MDCR* - wed/amarilys appts -Q3MO ZOMETA DUE 09/27 Start: 08-15-2024 End: 08-15-2024 ambulatory Hematology/Oncology Comment on above: (SO)CBC/CMP(S)(PORT) /OV TODAY* OV/LABS EARLY(PORT)C HEMO 08/16* - wed/amarilys appts Start: 08-12-2024 DIABETES SCREEN DIABETES SCREEN [facility] Start: 08-06-2024 End: 08-06-2024 Specialty Pharmacy [facility] Comment on above: Refill - Capecitabin e [21D] - C310 - Dose Reduction, refill req'd 07/16 Refill - Capecitabin e [21D] - C310 - Dose Reduction on file Start: 07-26-2024 End: 07-26-2024 ambulatory 07/26/2024 2:00 PM EST Infusion Center Hematology/Oncology [address] [place] [address] Q3WK ONTRUZANT(PORT)/LAB&OV 07/25/MDCR* - wed/amarilys appts -Q3MO [...] AM EST Specialty Pharmacy [facility] [address] [place], [place] [address] [place] [address] Pharmacist, [facility] [address] [place] [address] Refill - Capecitabine [21DS Omnisys Tukysa w/ PAP] C007/23 [facility] Comment on above: Refill - Capecitabin e [21DS Omnisys Tukysa w/ PAP] C007/23 Start: 07-05-2024 End: 07-05-2024 ambulatory 07/05/2024 2:30 PM EST Infusion Center Hematology/Oncology [address] [place] [address] Q3MO ZOMETA/Q3WK ONTRUZANT(PORT)/LAB&OV 07/04/MDCR* - wed/amarilys appts [...] AM EST Specialty Pharmacy [facility] [place] [address] Pharmacist, [facility] [address] [place] [phone] Refill - Capecitabine [21DS Omnisys Tukysa w/ [...] AM EST Specialty Pharmacy [facility] [address] [place] [address] Pharmacist, [facility] [address] [place] [address] [place] [address] Refill - Capecitabine [21DS Omnisys Tukysa w/ PAP] C006/11 - refill rqst 06/01 [facility] Comment on above: Refill - Capecitabin e [21DS Omnisys Tukysa w/ PAP] C006/11 - refill rqst 06/01 Start: 06-06-2024 Advance Directive Discussion Advance Directive Discussion [facility] Start: 06-04-2024 End: 06-04-2024 Specialty Pharmacy 06/04/2024 7:45 AM EST Specialty Pharmacy [facility] [address] [place], [place] [id number] [place] [address] Pharmacist, [facility] [address] [place] [address] [place] [address] Refill - Capecitabine [21DS Omnisys Tukysa w/ [...] 10:00 AM(patie nt request d/t family in [facility])/Q3WK ONTRUZANT/(PORT)/LAB&OV 05/23/MDCR* - wed/amarilys appts -Q3MO ZOMETA DUE 07/05 Start: 05-23-2024 Covid-19 Vaccine ( season) Covid-19 Vaccine ( season) [facility] Start: 05-23-2024 End: 05-23-2024 ambulatory Hematology/Oncology Comment on above: (SO)CBC/CMP(S)(PORT) /OV TODAY* OV/LABS EARLY(PORT)C HEMO - tue/amarilys appts Start: 05-14-2024 End: 05-14-2024 Specialty Pharmacy 05/14/2024 7:30 AM EST Specialty Pharmacy [facility] [address] [place] [address] Pharmacist, [facility] [address] [place] [address] [place] [address] Refill - Capecitabine [21DS Omnisys Tukysa w/ PAP] [facility] Comment on above: Refill - Capecitabin e [21DS Omnisys Tukysa w/ PAP] Start: 05-04-2024 End: 05-04-2024 ambulatory 05/04/2024 2:00 PM EST Infusion Center Hematology/Oncology [address] [place] [address] NO THUR APPT DUE TO [facility] Hematology/Oncology Comment on above: NO THUR APPT DUE TO [facility] Start: 05-02-2024 End: 05-02-2024 ambulatory Hematology/Oncology Comment on above: (SO)CBC/CMP(S)(PORT) /OV TODAY* OV/LABS EARLY(PORT)C HEMO 05/04* - tue/amarilys appts Start: 04-24-2024 End: 04-24-2024 ambulatory 04/24/2024 10:00 AM EST Infusion Center Hematology/Oncology [address] [place] [address] Wstr, Lab/Port [place] [address] [place] [address] Hematology/Oncology Comment on above: ACCESS PORT FOR CT Start: 04-24-2024 End: 04-24-2024 Patient encounter procedure Cat Scan Comment on above: Malignant neoplasm o f lower-inner quadrant of right breast of female, estrogen receptor positive (HCC) [C50.311, Z17.0] Start: 04-20-2024 End: 04-20-2024 Specialty Pharmacy 04/20/2024 7:15 AM EST Specialty Pharmacy [facility] [address] [place] [address] Pharmacist, [facility] [address] [place] [address] [place] [address] Refill - Capecitabine [21DS Omnisys Tukysa w/ PAP] [facility] Comment on above: Refill - Capecitabin e [21DS Omnisys Tukysa w/ PAP] Start: 04-12-2024 End: 04-12-2024 ambulatory 04/12/2024 9:30 AM [facility] Infusion Center Hematology/Oncology [address] [place] [address] Q3WK ONTRUZANT/Q3MO ZOMETA(PORT)/LAB&OV 04/11/MDCR* - wed/amarilys appts -Q3MO ZOMETA DUE 07/05 Hematology/Oncology Comment on above: Q3WK ONTRUZANT/Q3MO ZOMETA(PORT)/LAB&OV 04/11/MDCR* - wed/amarilys appts -Q3MO ZOMETA DUE 07/05 Start: 04-11-2024 End: 04-11-2024 ambulatory Hematology/Oncology Comment on above: (SO)CBC/CMP(S)(PORT) /OV TODAY* OV/LABS EARLY(PORT)C HEMO 04/12* - wed/amarilys appts Start: 03-30-2024 End: 03-30-2024 Specialty Pharmacy 03/30/2024 7:30 AM EDT Specialty Pharmacy [facility] [address] [place] [address] Pharmacist, [facility] [address] [place] [address] [place] [address] Refill - Capecitabine [21DS Omnisys [...] AM EDT Specialty Pharmacy [facility] [address] [place], [place] [address] [place] [address] Pharmacist, [facility] [address] [place] [address] [place] [address] Refill - Capecitabine [21DS Omnisys Tukysa w/ [...] EDT Specialty Pharmacy [facility] [address] [place] [address] Pharmacist, [facility] [address] [place] [address] Refill - Capecitabine [21DS Omnisys Tukysa w/ PAP] - [facility] Comment on above: Refill - Capecitabin e [21DS Omnisys Tukysa w/ PAP] - Start: 02-16-2024 End: 02-16-2024 ambulatory 02/16/2024 3:00 PM EDT Infusion Center Hematology/Oncology [address] [place] [address] Q3WK ONTRUZANT(PORT)/LAB & OV 02/14/MDCR* Q3MO ZOMETA DUE 03/08 Hematology/Oncology Comment on above: Q3WK ONTRUZANT(PORT) /LAB & OV 02/14/MDCR* Q3MO ZOMETA DUE 03/08 Start: 02-15-2024 End: 02-15-2024 ambulatory Hematology/Oncology Comment on above: (SO)CBC/CMP(S)(PORT) /OV TODAY* OV/LABS EARLY(PORT)C HEMO 02/15* Start: 02-08-2024 End: 02-08-2024 ambulatory 02/08/2024 8:30 AM EDT Infusion Center Hematology/Oncology [address] [place], [place] [address] Q3WK ONTRUZANT(PORT)/LAB & OV 02/02/MDCR* Q3MO ZOMETA DUE 03/08 Hematology/Oncology Comment on above: Q3WK ONTRUZANT(PORT) /LAB & OV 02/02/MDCR* Q3MO ZOMETA DUE 03/08 Start: 02-05-2024 Covid-19 Vaccine ( season) Covid-19 Vaccine ( season) [facility] Start: 02-05-2024 Covid-19 Vaccine ( season) Covid-19 Vaccine () [facility] Start: 02-05-2024 Influenza vaccination C [facility] Start: 02-03-2024 End: 02-03-2024 ambulatory Hematology/Oncology Comment on above: (SO)CBC/CMP(S)(PORT) /OV TODAY* OV/LABS EARLY(PORT)C HEMO 02/07* Start: 01-30-2024 End: 01-30-2024 Specialty Pharmacy 01/30/2024 7:30 AM EDT Specialty Pharmacy [facility] [address] [place] [address] Pharmacist, [facility] [address] [place] [address] [place] [address] Refill - Capecitabine [21DS Omnisys Tukysa w/ PAP] C002/02 - LVM 01/25 [facility] Comment on above: Refill - Capecitabin e [21DS Omnisys Tukysa w/ PAP] C002/02 - LVM 01/25 Start: 01-27-2024 End: 01-27-2024 Specialty Pharmacy 01/27/2024 7:00 AM EDT Specialty Pharmacy [facility] [address] [place] [address] Pharmacist, [facility] [address] [place] [address] [place] [address] Refill - Capecitabine [21DS Omnisys Tukysa w/ PAP] C002/02 [facility] Comment on above: Refill - Capecitabin e [21DS Omnisys Tukysa w/ PAP] C002/02 Start: 01-26-2024 End: 01-26-2024 ambulatory 01/26/2024 3:30 PM EDT Infusion Center Hematology/Oncology [address] [place] [address] Q3WK ONTRUZANT(PORT)/LAB & OV 01/24/MDCR* Q3MO ZOMETA DUE 03/08 Hematology/Oncology Comment on above: Q3WK ONTRUZANT(PORT) /LAB & OV 01/24/MDCR* Q3MO ZOMETA DUE 03/08 Start: 01-25-2024 End: 01-25-2024 ambulatory Hematology/Oncology Comment on above: (SO)CBC/CMP(S)(PORT) /OV TODAY* OV/LABS EARLY(PORT)C HEMO 01/25* Start: 01-16-2024 End: 01-16-2024 Follow-up encounter 01/16/2024 3:30 PM EDT [facility] Radiation Oncology [address] [place] [address] Meenu Garay MD [address] [place] [address] 3 MO FOLLOW UP/CT 01/10* Radiation Oncology Comment on above: 3 MO FOLLOW UP/CT 01/10* Start: 01-16-2024 End: 01-16-2024 ambulatory 01/16/2024 9:00 AM EDT Infusion Center Hematology/Oncology [address] [place] [address] (SO)CBC/CMP(S) /Q3WK ONTRUZANT(PORT)MDCR* Q3MO ZOMETA DUE 03/08 Hematology/Oncology Comment on above: (SO)CBC/CMP(S) /Q3WK ONTRUZANT(PORT)MDCR* Q3MO ZOMETA DUE 03/08 Start: 01-11-2024 End: 11-26-2024 CT Chest WO contrast CT CHEST WO IVCON Radiology Routine Secondary malignant neoplasm of right lung (HCC) Expected: 01/11/2024 (Approximate), Expires: 11/26/2024 [facility] Work Phone: Comment on above: Expected: 01/11/2024 (Approximate), Expires: 11/26/2024 Start: 01-11-2024 End: 01-11-2024 Patient encounter procedure 01/11/2024 9:00 AM EDT Appointment Cat Scan [address] [place] [address] Secondary malignant neoplasm of right lung (HCC) [...] Appointment Cat Scan [address] [place] [address] Malignant neoplasm of lower-inner quadrant of right [...] AM EDT Specialty Pharmacy [facility] [address] [facility] [address] [place] [address] Pharmacist, [facility] [address] [place] [address] [place] [address] Refill - Capecitabine [21DS Omni Tukysa w/ PAP] C001/05 [facility] Comment on above: Refill - Capecitabin e [21DS Omni Tukysa w/ PAP] C001/05 Start: 12-22-2023 End: 12-22-2023 ambulatory 12/22/2023 10:45 AM EDT Infusion Center Hematology/Oncology [address] [place], [place] [address] Wstr, Lab/Port [place] [facility] [address] [place] [address] PORT ACCESS FOR IMAGING* Hematology/Oncology Comment on [...] PM EDT Infusion [facility] Hematology/Oncology [address] [place], [place] [address] Q3WK ONTRUZANT/Q3MO ZOMETA(PORT)/LAB & OV 12/13/MDCR* Q3MO ZOMETA DUE 03/08 Hematology/Oncology Comment on above: Q3WK ONTRUZANT/Q3MO ZOMETA(PORT)/LAB & OV 12/13/MDCR* Q3MO ZOMETA DUE 03/08 Start: 12-14-2023 End: 12-14-2023 ambulatory Hematology/Oncology Comment on above: (SO)CBC/CMP(S)(PORT) /OV TODAY* OV/LABS EARLY(PORT)C HEMO 12/14* OV/LABS EARLY(PORT)C HEMO 12/14* [facility] Start: 12-09-2023 End: 12-09-2023 Specialty Pharmacy 12/09/2023 7:00 AM EDT Specialty Pharmacy [facility] [address] [facility] [id number] [place] [address] Pharmacist, [facility] [address] [place] [address] [place] [address] Refill - Capecitabine [21DS Omni Tukysa w/ PAP] C012/15 [facility] Comment on above: Refill - Capecitabin e [21DS Omni Tukysa w/ PAP] C012/15 Start: 11-24-2023 End: 11-24-2023 ambulatory 11/24/2023 3:30 PM EDT Infusion Center Hematology/Oncology [address] [place] [address] Q3WK ONTRUZANT(PORT)/LAB & OV 11/22/MDCR* Q3MO ZOMETA [...] 11/03 Start: 11-11-2023 End: 11-11-2023 ambulatory Yvonne Nickerson [facility] Laboratory Comment on above: CBC (SO)CBC Start: 11-03-2023 End: 11-03-2023 ambulatory 11/03/2023 3:30 PM EDT Infusion Center Hematology/Oncology [address] [place] [address] Q3WK ONTRUZANT(PORT)/LAB & OV 11/01/MDCR* Q3MO ZOMETA [...] Infusion Center Hematology/Oncology [address] [place] [address] Q3WK ONTRUZANT(PORT)/LAB & OV 10/10/MDCR* Q3MO ZOMETA DUE 12/14 Hematology/Oncology Comment on above: Q3WK ONTRUZANT(PORT) /LAB & OV 10/10/MDCR* Q3MO ZOMETA DUE 12/14 Start: 10-11-2023 End: 10-11-2023 ambulatory Hematology/Oncology Comment on above: (SO)CBC/CMP(S)(PORT) /OV TODAY* OV/LABS EARLY(PORT)C HEMO 10/12* Start: 09-30-2023 End: 09-30-2023 Patient encounter procedure 09/30/2023 1:45 PM EDT Appointment Radiation Oncology [address] [place] [address] Location: [email or web address] Comment on above: Location: [email or web address] Start: 2023 End: 2023 Patient encounter procedure Radiation Oncology Comment on above: Location: [facility] Location: [facility] Start: 09-23-2023 Screening for malign ant neoplasm of breast Mammogram [facility] Start: 08-24-2023 Mammography [facility] Start: 08-24-2023 Screening for malign ant neoplasm of breast Mammogram Screening [facility] Start: 08-17-2023 [facility] Start: 08-16-2023 Venous catheter care management [facility] Start: 06-06-2023 Advance Directive Discussion Advance Directive Discussion [facility] Start: 06-06-2023 Behavioral Health Screening Behavioral Health Screening [facility] Start: 06-06-2023 Depression Assessment Depression Ass essment [facility] Start: 06-01-2023 End: 04-28-2024 Ct thorax w/o contrast material CT CHEST WO IVCON Radiology Routine Malignant neoplasm metastatic to left lung (HCC) Expected: 06/01/2023 (Approximate), Expires: 04/28/2024 [facility] Work Phone: Comment on above: Expected: 06/01/2023 (Approximate), Expires: 04/28/2024 Start: 05-25-2023 COVID-19 Vaccine (5 - Moderna series) COVID-19 Vaccine (5 - Moderna series) [facility] Start: 05-25-2023 Covid-19 Vaccine () Covid-19 Vaccine () [facility] Start: 02-17-2023 Patient discharge [facility] Start: 02-17-2023 Venous catheter care management [facility] Start: 02-17-2023 Assessment of risk o f venous thromboembolism [facility] Start: 02-17-2023 Inhalation therapy procedure [facility] Start: 02-17-2023 Insertion of cathete r into peripheral vein [facility] Start: 02-17-2023 Measuring intake and output [facility] Start: 02-17-2023 Oxygen therapy [facility] Start: 02-17-2023 Providing care accor ding to standard [facility] Start: 02-17-2023 Provision of activit y privileges [facility] Start: 02-17-2023 [facility] Start: 02-17-2023 Verification routine [facility] Start: 02-17-2023 [facility] Start: 02-16-2023 Pulmonary ventilatio n perfusion study Quant Lung Vent/Perf Scan [facility] Start: 02-16-2023 Admission procedure [facility] Start: 02-16-2023 Venous catheter care management [facility] Start: 02-16-2023 [facility] Start: 02-04-2023 Covid-19 Vaccine ( season) Covid-19 Vaccine ( season) [facility] Start: 02-04-2023 Influenza vaccination [facility] Start: 11-11-2022 Adult depression scr eening assessment DEPRESSION SCREENING [facility] Start: 07-26-2022 COVID-19 VACCINE (6 - Moderna series) COVID-19 VACCINE (6 - Moderna series) [facility] Start: 06-06-2022 ADVANCE DIRECTIVE DISCUSSION ADVANCE DIRECTIVE DISCUSSION [facility] Start: 06-06-2022 DEPRESSION ASSESSMENT DEPRESSION ASS ESSMENT [facility] Start: 02-04-2022 Influenza vaccination C [facility] Start: 01-29-2022 Adult depression scr eening assessment DEPRESSION SCREENING [facility] Start: 01-17-2022 COVID-19 VACCINE (5 - Booster for Moderna series) COVID-19 VACCINE (5 - Booster for Moderna series) [facility] Start: 11-12-2021 COVID-19 VACCINE (5 - Booster for Moderna series) COVID-19 VACCINE (5 - Booster for Moderna series) [facility] Start: 07-03-2021 COVID-19 VACCINE (4 - Booster for Moderna series) COVID-19 VACCINE (4 - Booster for Moderna series) [facility] Start: 06-06-2021 ADVANCE DIRECTIVE DISCUSSION ADVANCE DIRECTIVE DISCUSSION [facility] Start: 06-06-2021 DEPRESSION ASSESSMENT DEPRESSION ASS ESSMENT [facility] Start: 02-04-2021 Influenza vaccination INFLUENZA (#1) [facility] Start: 06-06-2019 Medicare Annual Well ness Visit Medicare Annual Wellness Visit [facility] Start: 05-18-2019 Mammography MAMMOGRAM [facility] Start: 05-18-2019 Screening for malign ant neoplasm of cervix Cervical Cancer Screening [facility] Start: 2018 Pneumococcal Vaccine : 65+ Years (1 - PCV) Pneumococcal Vaccine: 65+ Years (1 - PCV) [facility] Start: 2018 PNEUMOVAX AGE 65 AND OVER WITH 5YR LOOKBACK (#1) PNEUMOVAX AGE 65 AND OVER WITH 5YR LOOKBACK (#1) [facility] Start: 06-02-2017 End: 06-02-2017 Appointment Appointment [facility] Work Phone: Start: 05-26-2017 End: 12-01-2016 Echocardiography Echocardiogram (complete) [facility] Work Phone: Start: 12-01-2016 End: 12-01-2016 Appointment Appointment [facility] Work Phone: Start: 12-01-2016 End: 12-01-2016 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 [facility] Work Phone: Start: 12-01-2016 End: 12-01-2016 Electrocardiogram, complete EKG (In office) [facility] Work Phone: Start: 12-01-2016 End: 12-01-2016 Follow Up Appt 6 months Follow Up Appt 6 months [facility] Work Phone: Start: 2013 RSV Vaccine (1 - 1-d ose 60+ series) RSV Vaccine (1 - 1-dose 60+ series) [facility] Start: 2013 RSV Vaccine (1 - Ris k 60-74 years 1-dose series) RSV Vaccine (1 - Risk 60-74 years 1-dose series) [facility] Start: 09-29-2003 Pneumococcal vaccination Pneum ococcal Vaccine (1 of 1 - PCV) [facility] Start: 09-29-2003 SHINGRIX VACCINE (1 of 2) FRIED GRIX VACCINE (1 of 2) [facility] Start: 09-29-2003 Zoster Vaccines (1 of 2) Zoste r Vaccines (1 of 2) [facility] Start: 1998 COLOGUARD (FIT-DNA) COLOGUARD (FIT-D NA) [facility] Start: 1998 Colonoscopy COLONOSCOPY [facility] Start: 1998 COLORECTAL CANCER SCREENING COLORECTAL CANCER SCREENING [facility] Start: [address] COLONOGRAPHY [facility] Start: 1998 FECAL OCCULT BLOOD FECAL OCCULT BLOO D [facility] Start: 1998 Lipid 1996 panel - S felix or Plasma Lipid Screening [facility] Start: 1998 Lipid panel Lipid Screening [facility] Start: 1998 LIPID SCREEN LIPID SCREEN [facility] Start: 1998 Screening for malign ant neoplasm of colon [facility] Start: 1998 SIGMOIDOSCOPY SIGMOIDOSCOPY [facility] Start: 09-29-1975 DTaP/Tdap/Td Vaccine s (1 - Tdap) DTaP/Tdap/Td Vaccines (1 - Tdap) [facility] Start: 1972 Pneumococcal Vaccine : 50+ (1 of 2 - PCV) Pneumococcal Vaccine: 50+ (1 of 2 - PCV) [facility] Start: 1972 SHINGRIX VACCINE (1 of 2) FRIED GRIX VACCINE (1 of 2) [facility] Start: 1972 Urine microalbumin profile [facility] Start: 09-29-1971 Anxiety Screening Anxiety Screening [facility] Start: 09-29-1971 Depression Screening Depression Scre ening [facility] Start: 09-29-1971 HEPATITIS C [facility]CREENING [facility]IS [facility] Start: 09-29-1971 Hepatitis C screening Hepatitis C Sc [facility] Start: 09-29-1959 Pneumococcal Vaccine : 65+ (1 - PCV) Pneumococcal Vaccine: 65+ (1 - PCV) [facility] Start: 09-29-1959 Pneumococcal Vaccine : 65+ (1 of 2 - PCV) Pneumococcal Vaccine: 65+ (1 of 2 - PCV) [facility] Start: 09-29-1959 PNEUMOCOCCAL: 65+ (1 - PCV) PNEUMOCOCCAL: 65+ (1 - PCV) [facility] Start: 1953 Lipid panel Lipid Panel [facility] Start: 1953 Medicare Annual Well ness Visit Medicare Annual Wellness Visit (AWV) [facility] Start: 1953 Screening for malign ant neoplasm of colon [facility] Start: 1953 Screening for osteoporosis Bone Dens ity Scan [facility] End: 01-10-2025 CARDIO ONCOLOGY ECHO CARDIO ONCOLOGY ECHO Cardiology Routine Chemotherapy induced cardiomyopathy (HCC) Encounter for monitoring cardiotoxic drug therapy 1 Occurrences starting 01/11/2024 until 01/10/2025 [facility] Work Phone: Comment on above: 1 [...] for 18 Occurrences starting 11/09/2022 until 11/09/2023 [facility] Work Phone: Comment on above: Every [...] of breast (HCC) 02/03/2024 9:19 AM EDT [facility] Work Phone: End: 11-09-2023 Comprehensive metabolic 2000 panel - Serum or Plasma COMP METABOLIC PANEL Lab STAT Malignant neoplasm of lower-inner quadrant of right breast of female, estrogen receptor positive (HCC) Malignant neoplasm metastatic to bone (HCC) Malignant neoplasm metastatic to lung, unspecified laterality (HCC) Chemotherapy-induced cardiomyopathy (HCC) Every 3 weeks for 18 Occurrences starting 11/09/2022 until 11/09/2023 [facility] Work Phone: Comment on above: Every [...] (HCC) 1 Occurrences starting 10/21/2021 until 11/20/2022 [facility] Work Phone: Comment on above: 1 Occurrences starti ng 10/21/2021 until 11/20/2022 End: 01-22-2023 Ct abdomen & pelvis w/contrast material CT ABD/PEL W IVCON Radiology Routine Malignant neoplasm of lower-inner quadrant of right breast of female, estrogen receptor positive (HCC) Bone metastases (HCC) Malignant neoplasm metastatic to both lungs (HCC) Skin, 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) 1 Occurrences starting 12/23/2021 until 01/22/2023 [facility] Work Phone: Comment on above: 1 Occurrences starti ng 12/23/2021 until 01/22/2023 Ct abdomen & pelvis w/contrast material CT ABD/PEL W IVCON Radiology Routine Malignant neoplasm of lower-inner quadrant of right breast of female, estrogen receptor positive (HCC) Bone metastases (HCC) Malignant neoplasm metastatic to both lungs (HCC) Skin, 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) 01/07/2022 10:32 AM EDT [facility] Work Phone: End: 05-14-2023 Ct abdomen & pelvis w/contrast material CT ABD/PEL W IVCON Radiology Routine Malignant neoplasm of lower-inner quadrant of right breast of female, estrogen receptor positive (HCC) Bone metastases (HCC) 1 Occurrences starting 04/14/2022 until 05/14/2023 [facility] Work Phone: Comment on above: 1 Occurrences starti ng 04/14/2022 until 05/14/2023 End: 08-05-2023 Ct abdomen & pelvis w/contrast material CT ABD/PEL W IVCON Radiology Routine Malignant neoplasm of lower-inner quadrant of right breast of female, estrogen receptor positive (HCC) Bone metastases (HCC) Malignant neoplasm metastatic to both lungs (HCC) 1 Occurrences starting 07/06/2022 until 08/05/2023 [facility] Work Phone: Comment on above: 1 Occurrences starti ng 07/06/2022 until 08/05/2023 End: 08-28-2023 Ct abdomen & pelvis w/contrast material CT ABD/PEL W IVCON Radiology Routine Malignant neoplasm of lower-inner quadrant of right breast of female, estrogen receptor positive (HCC) Bone metastases (HCC) Malignant neoplasm metastatic to both lungs (HCC) 1 Occurrences starting 07/30/2022 until 08/28/2023 [facility] Work Phone: Comment on above: 1 Occurrences starti ng 07/30/2022 until 08/28/2023 End: 01-21-2024 Ct abdomen & pelvis w/contrast material CT ABD/PEL W IVCON Radiology Routine Malignant neoplasm of lower-inner quadrant of right breast of female, estrogen receptor positive (HCC) 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) Malignant neoplasm metastatic to both lungs (HCC) 1 Occurrences starting 12/22/2022 until 01/21/2024 [facility] Work Phone: Comment on above: 1 [...] (HCC) 1 Occurrences starting 12/14/2023 until 01/12/2025 [facility] Work Phone: Comment on above: 1 [...] Chemotherapy-induced neuropathy (HCC) 12/22/2023 11:48 AM EDT [facility] Work Phone: End: 04-21-2025 CT Abdomen and Pelvis W contrast IV CT ABD/PEL W IVCON Radiology Routine Malignant neoplasm of lower-inner quadrant of right breast of female, estrogen receptor positive (HCC) Malignant neoplasm metastatic to bone (HCC) Malignant neoplasm metastatic to both lungs (HCC) 1 Occurrences starting 03/21/2024 until 04/21/2025 [facility] Work Phone: Comment on above: 1 Occurrences starti ng 03/21/2024 until 04/21/2025 CT Abdomen and Pelvi s W contrast IV CT ABD/PEL W IVCON Radiology Routine Malignant neoplasm of lower-inner quadrant of right breast of female, estrogen receptor positive (HCC) Malignant neoplasm metastatic to bone (HCC) Malignant neoplasm metastatic to both lungs (HCC) 04/24/2024 11:01 AM [facility] Work Phone: End: 09-15-2025 CT Abdomen and Pelvis W contrast IV CT ABD/PEL W IVCON Radiology Routine Malignant neoplasm of lower-inner quadrant of right breast of female, estrogen receptor positive (HCC) Malignant neoplasm metastatic to bone (HCC) Malignant neoplasm metastatic to both lungs (HCC) 1 Occurrences starting 08/15/2024 until 09/15/2025 [facility] Comment on above: 1 Occurrences starti ng 08/15/2024 until 09/15/2025 CT Abdomen and Pelvi s W contrast IV CT ABD/PEL W IVCON Radiology Routine Malignant neoplasm of lower-inner quadrant of right breast of female, estrogen receptor positive (HCC) Malignant neoplasm metastatic to bone (HCC) Malignant neoplasm metastatic to both lungs (HCC) 08/30/2024 10:08 AM EDT [facility] End: 01-12-2025 CT Chest W contrast IV CT CHEST W IVCON Radiology Routine Malignant neoplasm of lower-inner quadrant of right breast of female, estrogen receptor positive (HCC) Malignant neoplasm metastatic to lung, unspecified laterality (HCC) Malignant neoplasm metastatic to bone (HCC) 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) 1 Occurrences starting 12/14/2023 until 01/12/2025 [facility] Comment on above: 1 Occurrences starti ng [...] Chemotherapy-induced neuropathy (HCC) 12/22/2023 11:48 AM EDT [facility] End: 04-20-2025 CT Chest W contrast IV CT CHEST W IVCON Radiology Routine Malignant neoplasm of lower-inner quadrant of right breast of female, estrogen receptor positive (HCC) Malignant neoplasm metastatic to bone (HCC) Malignant neoplasm metastatic to both lungs (HCC) 1 Occurrences starting 03/21/2024 until 04/20/2025 [facility] Comment on above: 1 Occurrences starti ng 03/21/2024 until 04/20/2025 CT Chest W contrast IV CT CHEST W IVCON Radiology Routine Malignant neoplasm of lower-inner quadrant of right breast of female, estrogen receptor positive (HCC) Malignant neoplasm metastatic to bone (HCC) Malignant neoplasm metastatic to both lungs (HCC) 04/24/2024 11:01 AM [facility] End: 09-14-2025 CT Chest W contrast IV CT CHEST W IVCON Radiology Routine Malignant neoplasm of lower-inner quadrant of right breast of female, estrogen receptor positive (HCC) Malignant neoplasm metastatic to bone (HCC) Malignant neoplasm metastatic to both lungs (HCC) 1 Occurrences starting 08/15/2024 until 09/14/2025 [facility] Comment on above: 1 Occurrences starti ng 08/15/2024 until 09/14/2025 CT Chest W contrast IV CT CHEST W IVCON Radiology Routine Malignant neoplasm of lower-inner quadrant of right breast of female, estrogen receptor positive (HCC) Malignant neoplasm metastatic to bone (HCC) Malignant neoplasm metastatic to both lungs (HCC) 08/30/2024 10:08 AM [facility] Work Phone: End: 01-22-2023 CT CHEST W IVCON CT CHEST W IVCON Radiology Routine Malignant neoplasm of lower-inner quadrant of right breast of female, estrogen receptor positive (HCC) Bone metastases (HCC) Malignant neoplasm metastatic to both lungs (HCC) Skin, 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) 1 Occurrences starting 12/23/2021 until 01/22/2023 [facility] Work Phone: Comment on above: 1 Occurrences starti ng 12/23/2021 until 01/22/2023 CT CHEST W IVCON CT CHEST W IVCO N Radiology Routine Malignant neoplasm of lower-inner quadrant of right breast of female, estrogen receptor positive (HCC) Bone metastases (HCC) Malignant neoplasm metastatic to both lungs (HCC) Skin, 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) 01/07/2022 10:32 AM [facility] Work Phone: End: 05-14-2023 CT CHEST W IVCON CT CHEST W IVCON Radiology Routine Malignant neoplasm of lower-inner quadrant of right breast of female, estrogen receptor positive (HCC) Bone metastases (HCC) 1 Occurrences starting 04/14/2022 until 05/14/2023 [facility] Work Phone: Comment on above: 1 Occurrences starti ng 04/14/2022 until 05/14/2023 End: 08-05-2023 CT CHEST W IVCON CT CHEST W IVCON Radiology Routine Malignant neoplasm of lower-inner quadrant of right breast of female, estrogen receptor positive (HCC) Bone metastases (HCC) Malignant neoplasm metastatic to both lungs (HCC) 1 Occurrences starting 07/06/2022 until 08/05/2023 [facility] Work Phone: Comment on above: 1 Occurrences starti ng 07/06/2022 until 08/05/2023 End: 08-29-2023 CT CHEST W IVCON CT CHEST W IVCON Radiology Routine Malignant neoplasm of lower-inner quadrant of right breast of female, estrogen receptor positive (HCC) Bone metastases (HCC) Malignant neoplasm metastatic to both lungs (HCC) 1 Occurrences starting 07/30/2022 until 08/29/2023 [facility] Work Phone: Comment on above: 1 Occurrences starti ng 07/30/2022 until 08/29/2023 End: 01-21-2024 CT CHEST W IVCON CT CHEST W IVCON Radiology Routine Malignant neoplasm of lower-inner quadrant of right breast of female, estrogen receptor positive (HCC) 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) Malignant neoplasm metastatic to both lungs (HCC) 1 Occurrences starting 12/22/2022 until 01/21/2024 [facility] Work Phone: Comment on above: 1 Occurrences starti ng 12/22/2022 until 01/21/2024 CT Chest WO contrast CT CHEST WO IVCON Radiology Routine Malignant neoplasm metastatic to left lung (HCC) 08/03/2023 10:10 AM EST [facility] Work Phone: CT Guidance for radi ation treatment of Unspecified body region CT SIM PLANNING RADIATION ONCOLOGY Radiology Routine Secondary malignant neoplasm of right lung (HCC) Ordered: 09/27/2023 [facility] Work Phone: Comment on above: Ordered: 09/27/2023 CT SIM PLANNING RADI ATION ONCOLOGY CT SIM PLANNING RADIATION ONCOLOGY Radiology Routine Malignant neoplasm metastatic to left lung (HCC) Ordered: 02/09/2023 [facility] Work Phone: Comment on above: Ordered: [...] (HCC) 1 Occurrences starting 10/21/2021 until 11/20/2022 [facility] Work Phone: Comment on above: 1 Occurrences starti ng 10/21/2021 until 11/20/2022 End: 03-24-2024 Ct thorax w/o contrast material CT CHEST WO IVCON Radiology Routine Malignant neoplasm metastatic to bone (HCC) 1 Occurrences starting 02/23/2023 until 03/24/2024 [facility] Work Phone: Comment on above: 1 Occurrences starti ng 02/23/2023 until 03/24/2024 End: 01-07-2023 ECHO LIMITED ECHO LIMITED Cardiology Routine Malignant neoplasm metastatic to both lungs (HCC) Malignant neoplasm of right breast in female, estrogen receptor positive, unspecified site of breast (HCC) Skin, 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) 1 Occurrences starting 01/07/2022 until 01/07/2023 [facility] Work Phone: Comment on above: 1 Occurrences starti ng 01/07/2022 until 01/07/2023 End: 10-21-2022 Echocardiography ECHO Cardiology Routine Malignant neoplasm of lower-inner quadrant of right breast of female, estrogen receptor positive (HCC) Bone metastases (HCC) Skin, 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) 1 Occurrences starting 10/21/2021 until 10/21/2022 [facility] Work Phone: Comment on above: 1 Occurrences starti ng 10/21/2021 until 10/21/2022 End: 04-14-2023 Echocardiography ECHO Cardiology Routine Malignant neoplasm of lower-inner quadrant of right breast of female, estrogen receptor positive (HCC) Bone metastases (HCC) Encounter for monitoring cardiotoxic drug therapy 1 Occurrences starting 04/14/2022 until 04/14/2023 [facility] Work Phone: Comment on above: 1 Occurrences starti ng 04/14/2022 until 04/14/2023 End: 06-15-2023 Echocardiography ECHO Cardiology Routine Malignant neoplasm of lower-inner quadrant of right breast of female, estrogen receptor positive (HCC) Bone metastases (HCC) Skin, 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) Malignant neoplasm metastatic to both lungs (HCC) Encounter for monitoring cardiotoxic drug therapy 1 Occurrences starting 06/15/2022 until 06/15/2023 [facility] Work Phone: Comment on above: 1 Occurrences starti ng 06/15/2022 until 06/15/2023 End: 10-21-2023 Echocardiography ECHO Cardiology Routine Chemotherapy-induced cardiomyopathy (HCC) 1 Occurrences starting 10/20/2022 until 10/21/2023 [facility] Work Phone: Comment on above: 1 Occurrences starti ng 10/20/2022 until 10/21/2023 End: 12-23-2023 Echocardiography ECHO Cardiology Routine Malignant neoplasm of lower-inner quadrant of right breast of female, estrogen receptor positive (HCC) 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) Malignant neoplasm metastatic to both lungs (HCC) Encounter for monitoring cardiotoxic drug therapy 1 Occurrences starting 12/22/2022 until 12/23/2023 [facility] Work Phone: Comment on above: 1 Occurrences starti ng 12/22/2022 until 12/23/2023 End: 04-26-2024 Echocardiography ECHO Cardiology Routine Malignant neoplasm metastatic to both lungs (HCC) Encounter for monitoring cardiotoxic drug therapy 1 Occurrences starting 04/26/2023 until 04/26/2024 [facility] Work Phone: Comment on above: 1 Occurrences starti ng 04/26/2023 until 04/26/2024 End: 09-20-2024 Echocardiography ECHO Cardiology Routine Encounter for monitoring cardiotoxic drug therapy 1 Occurrences starting 09/21/2023 until 09/20/2024 [facility] Work Phone: Comment on above: 1 Occurrences starti ng 09/21/2023 until 09/20/2024 End: 11-22-2024 Echocardiography ECHO Cardiology Routine Chemotherapy-induced cardiomyopathy (HCC) Encounter for monitoring cardiotoxic drug therapy 1 Occurrences starting 11/23/2023 until 11/22/2024 [facility] Work Phone: Comment on above: 1 Occurrences starti ng 11/23/2023 until 11/22/2024 End: 01-04-2025 Echocardiography ECHO Cardiology Routine Encounter for monitoring cardiotoxic drug therapy 1 Occurrences starting 01/06/2024 until 01/04/2025 [facility] Work Phone: Comment on above: 1 Occurrences starti ng 01/06/2024 until 01/04/2025 End: 01-05-2025 Echocardiography ECHO Cardiology Routine Encounter for monitoring cardiotoxic drug therapy Chemotherapy induced cardiomyopathy (HCC) 1 Occurrences starting 01/06/2024 until 01/05/2025 [facility] Comment on above: 1 Occurrences starti ng 01/06/2024 until 01/05/2025 End: 08-15-2025 Echocardiography ECHO Cardiology Routine Malignant neoplasm of lower-inner quadrant of right breast of female, estrogen receptor positive (HCC) Malignant neoplasm metastatic to bone (HCC) Malignant neoplasm metastatic to both lungs (HCC) Encounter for monitoring cardiotoxic drug therapy 1 Occurrences starting 08/15/2024 until 08/15/2025 [facility] Comment on above: 1 Occurrences starti ng 08/15/2024 until 08/15/2025 End: 12-12-2025 Echocardiography ECHO Cardiology Routine Malignant neoplasm of lower-inner quadrant of right breast of female, estrogen receptor positive (HCC) HER2-positive carcinoma of breast (HCC) Malignant neoplasm metastatic to bone (HCC) Malignant neoplasm metastatic to both lungs (HCC) Chemotherapy-induced cardiomyopathy (HCC) 1 Occurrences starting 12/12/2024 until 12/12/2025 [facility] Comment on above: 1 Occurrences starti ng 12/12/2024 until 12/12/2025 End: 08-05-2023 MAXIM SCREENING W OMI MAXIM SCREENING W OMI Radiology Routine Encounter for screening mammogram for malignant neoplasm of breast 1 Occurrences starting 07/06/2022 until 08/05/2023 [facility] Work Phone: Comment on above: 1 Occurrences starti ng 07/06/2022 until 08/05/2023 Patient Education Rectal Bleeding Tx [facility] Work Phone: Patient referral [facility] Work Phone: End: 09-08-2024 PET+CT Guidance for [...] (HCC) 1 Occurrences starting 08/10/2023 until 09/08/2024 [facility] Work Phone: Comment on above: 1 [...] both lungs (HCC) 08/22/2023 10:41 AM EDT [facility] Work Phone: End: 12-10-2023 Radex spine lumbosacral 2/3 views XR LUMBAR LIMITED 2V AP/LAT Radiology Routine Chronic left sacroiliac pain 1 Occurrences starting 11/10/2022 until 12/10/2023 [facility] Work Phone: Comment on above: 1 Occurrences starti ng 11/10/2022 until 12/10/2023 Radex spine lumbosac ral 2/3 views XR LUMBAR LIMITED 2V AP/LAT Radiology Routine Chronic left sacroiliac pain 11/10/2022 11:10 AM EDT [facility] Work Phone: End: 12-10-2023 Radiologic examination sacroiliac jnts <3 views XR SACROILIAC JOINTS 2V AP PELVIS/FERGUESON Radiology Routine Chronic left sacroiliac pain 1 Occurrences starting 11/10/2022 until 12/10/2023 [facility] Work Phone: Comment on above: 1 Occurrences starti ng 11/10/2022 until 12/10/2023 Radiologic examinati on sacroiliac jnts <3 views XR SACROILIAC JOINTS 2V AP PELVIS/FERGUESON Radiology Routine Chronic left sacroiliac pain 11/10/2022 11:10 AM EDT [facility] Work Phone: End: 2024 US Abdomen RUQ US ABD RIGHT UPPER QUADRANT Radiology Routine RUQ pain 1 Occurrences starting 08/30/2023 until 2024 [facility] Work Phone: Comment on above: 1 Occurrences starti ng 08/30/2023 until 2024 US Abdomen RUQ US ABD RIGHT UPP ER QUADRANT Radiology Routine RUQ pain 09/15/2023 12:01 PM EDT [facility] Work Phone: End: 09-23-2023 US BREAST LTD LT US BREAST LTD LT Radiology Routine Abnormal mammogram 1 Occurrences starting 08/24/2022 until 09/23/2023 [facility] Work Phone: Comment on above: 1 Occurrences starti ng 08/24/2022 until 09/23/2023 End: 10-02-2022 Us soft tissue head & neck real time imge docm US THYROID/PARATHYROID Radiology Routine Thyroid nodule 1 Occurrences starting 09/02/2021 until 10/02/2022 [facility] Work Phone: Comment on above: 1 Occurrences starti ng 09/02/2021 until 10/02/2022 End: 09-14-2025 US Thyroid gland US THYROID/PARATHYROID Radiology Routine History of thyroid nodule 1 Occurrences starting 08/15/2024 until 09/14/2025 [facility] Work Phone: Comment on above: 1 Occurrences starti ng 08/15/2024 until 09/14/2025 US Thyroid gland US THYROID/PARA THYROID Radiology Routine History of thyroid nodule 08/30/2024 8:04 AM EDT [facility] Work Phone: End: 02-02-2025 XR Chest PA and Lateral XR CHEST 2V FRONTAL/LAT Radiology Routine Malignant neoplasm of lower-inner quadrant of right breast of female, estrogen receptor positive (HCC) Orthopnea 1 Occurrences starting 01/04/2024 until 02/02/2025 [facility] Work Phone: Comment on above: 1 Occurrences starti ng 01/04/2024 until 02/02/2025 XR Chest PA and Lateral XR CHEST 2V FRONTAL/LAT Radiology Routine Malignant neoplasm of lower-inner quadrant of right breast of female, estrogen receptor positive (HCC) Orthopnea 01/04/2024 11:24 AM EDT [facility] Immunizations Immunization Date Immunization Notes Care Provider Fa cility 06-14-2024 influenza, high dose seasonal, preservative-free Treatment Wstr Work Phone: [facility] 06-14-2024 influenza virus vaccine, unspecified formulation Nallely Aguilera [facility] 03-30-2023 Moderna COVID-19 vaccine, 12 years and older (50mcg/0.5mL)(Spikevax ) Isac Billingsley MD Work Phone: [facility] Work Phone: 03-25-2022 Moderna COVID-19 vaccine, bivalent, blue cap/st label *Check age/dose* Isac Billingsley MD Work Phone: [facility] Work Phone: 09-19-2020 COVID-19 vaccine, fu ll dose (MODERNA) Pet 2 [facility] 08-20-2020 COVID-19 vaccine, fu ll dose (MODERNA) Pet 2 [facility] Payers Date Payer Category Payer Self-pay [id number] 2022 Medicare supplementa l policy (as second payer) [employer] [id number] [facility] [id number] 2022-Present [address] [place] [address] [id number] 2021 Private Health Insurance [id number] 2021 Unknown [id number] 2019 Medicare MEDICARE MEDICAR E A AND B [id number] 2019-Present [phone] [address] [address] [place] [address] Medicare [id number] 2019 Medicare [id number] 2019 Private Health Insurance xxx [id number] 2019 Medicare [id number] 2015 Unknown [facility] TIMOTHY [id number] 1955 Unknown [id number] Unknown [id number] Unknown [id number] Unknown [id number] Unknown [id number] Unknown [id number] Unknown [id number] Unknown [id number] Unknown [id number] Social History Date Type Detail Facility Start: 02-20-2016 End: 02-03-2023 Tobacco smoking status NHIS Never smoked tobacco [facility] Start: 02-20-2016 End: 02-03-2023 Tobacco use and exposure Smokeless tobacco non-user [facility] Start: 08-12-2021 End: 11-21-2024 Alcohol intake Current non-drinker of alcohol (finding) [facility] Start: 06-11-2019 History SDOH Social Connections Phone 5 [facility] Start: 06-11-2019 History SDOH Social Connections Get Together 2 [facility] Start: 06-11-2019 History SDOH Social Connections Restoration 1 [facility] Start: 06-11-2019 History SDOH Social Connections Living 3 [facility] Start: 06-11-2019 History SDOH Stress 4 [facility] Start: 1955 Sex Assigned At Female [facility] Start: 08-15-2021 End: 2024 Exposure to SARS-CoV-2 (event) Not sure [facility] Start: 09-15-2021 End: 08-16-2023 Tobacco smoking status NHIS Unknown if ever smoked [facility] Start: 05-01-2019 Non-smoker [facility] Start: 06-11-2019 End: 10-18-2022 History of Social function [facility] Start: 06-11-2019 End: 10-18-2022 Social connection and isolation panel [facility] Do you belong to any clubs or organizations such as bahai groups, unions, fraternal or athletic groups, or school groups? No [facility] Are you now , , , , never or living with a partner? [facility] How hard is it for y ou to pay for the very basics like food, housing, medical care, and heating Not hard at all [facility] Do you feel stress - tense, restless, nervous, or anxious, or unable to sleep at night because your mind is troubled all the time - these days [OSQ] Rather much [facility] (I/We) worried wheth er (my/our) food would run out before (I/we) got money to buy more. Never true [facility] Start: 02-17-2021 Gender identity Identifies as female gender (finding) [facility] Start: 02-17-2021 Sexual orientation Heterosexual (finding) [facility] Start: 06-16-2023 End: 2024 Alcohol intake Ex-drinker (finding) [facility] Work Phone: Start: 1955 Sex Assigned At Not on file [facility] Work Phone: Start: 09-19-2024 Sex Female (finding) [facility] Medical Equipment Procedure Code Equipment Code [...] ri 8fr Plastic Polyurethane Implantable Infusion - [id number] Start: 03-25-2016 SANTO 3GRM HEMO STAT [...] [facility] ionnaire 2 item (PHQ-2) [Reported] [facility] Work Phone: 02-17-2023 Functional status Ambulates [facility] Work Phone: [facility] Work Phone: Mental Status Date Assessment Result Facility 02-17-2023 Cognitive function Voice/Name [facility] Work Phone: Clinical Notes 08-25-2021 to 12-12-2024 Caity Cote APRN.[employer] - 12/12/2024 8:13 AM Nicolle Butts RN - 12/12/2024 7:00 AM Caity Morales APRN.[employer] - 11/21/2024 9:29 AM Mae Shipley - [...] fall of 2015. She was seen at [facility] and underwent a right sided core biopsy on 02/16/2016 by interventional radiology. The tissue specimen demonstrated invasive ductal carcinoma, Yohan grade 2. ER positive (90%, very weak) and ND negative (0%). HER-2 was quantified at 3+. [...] positive, >90% Ki-67 (30-9) positive, 12% CK8 (98wrrzN39) positive CK5-6 (D5 & 1684) negative Calponin-1 (VZ508N) negative P40 (BC28) negative E-Cad (ECH-6) positive MORPHOMETRIC ANALYSIS ER (clone 6F11) 15%, weak intensity ND (clone 16/1E2) 0% Her-2Neu (clone CB11) 3+ Block B Calponin-1 (QE800Z) negative P40 (BC28) negative CK8 (27ffylQ34) positive INTERPRETATION: A. Right breast 1 o clock, biopsy: Invasive ductal carcinoma, grade 3/3. Positive for estrogen receptors (favorable prognostic indicator). Negative for progesterone receptors (unfavorable prognostic indicator). Positive for overexpression of XTX4jme. B. Right breast 2 o clock, biopsy: [...] - previously performed on section of tumor ([id number] / [id number]). ER - positive (15%, weak intensity) ND - negative (0%) Her2 krista - positive (3+) Microcalcifications - present in both invasive carcinoma and non-neoplastic tissue. Clinical history - Please make reference to previous specimen ([id number]) right breast at 1 o clock and [...] - 4.00 k/uL 0.86 (L) 1.08 1.03 Blount% % 10.7 11.8 12.4 Abs Blount <0.87 k/uL 0.40 0.55 0.62 Eosin% % [...] pN0(sln) MX ER positive (9%, very weak) ND negative HER overexpressed stage IIA invasive ductal carcinoma the right breast. -Recurrent pT2(m) pN0 (none of 5 LNs) MX ER +(15%, weak intensity)/ND negative (0%) HER2 3+ invasive ductal carcinoma [...] pending. - ECHO done in September at [facility]. Next due this month. - Continue zometa every 3 months. - Start xeloda/tukysa tomorrow. - ECHO due this month at [facility]. - CT's after this cycle. - [...] as necessary for today's visit. Caity Cote APRN.[employer] documented in this encounter [facility] 12-12-2024 History of Presen t illness Narrative Patient is here for IVAD port flush/blood draw per [facility] [place] protocol. IVAD is located in left upper [...] tolerated procedure well. documented in this encounter [facility] 11-21-2024 History of Presen t illness Narrative Chief Complaint Patient presents with: Established Patient HPI: Renate Christiansen is a 69 year old female who presents here today for evaluation for treatment tomorrow. Per Dr. Rivers's previous note: H/o discovered a lump on the lower inner portion of her right breast in the fall of 2015. She was seen at [facility] and underwent a right sided core biopsy on 02/16/2016 by interventional radiology. The tissue specimen demonstrated invasive ductal carcinoma, Yohan grade 2. ER positive (90%, very weak) and ND negative (0%). HER-2 was quantified at 3+. [...] positive, >90% Ki-67 (30-9) positive, 12% CK8 (47bofrW28) positive CK5-6 (D5 & 1684) negative Calponin-1 (ZE146U) negative P40 (BC28) negative E-Cad (ECH-6) positive MORPHOMETRIC ANALYSIS ER (clone 6F11) 15%, weak intensity ND (clone 16/1E2) 0% Her-2Neu (clone CB11) 3+ Block B Calponin-1 (XD594Q) negative P40 (BC28) negative CK8 (28wslkN98) positive INTERPRETATION: A. Right breast 1 o clock, biopsy: Invasive ductal carcinoma, grade 3/3. Positive for estrogen receptors (favorable prognostic indicator). Negative for progesterone receptors (unfavorable prognostic indicator). Positive for overexpression of MEX6cow. B. Right breast 2 o clock, biopsy: [...] - previously performed on section of tumor ([id number] / [id number]). ER - positive (15%, weak intensity) ND - negative (0%) Her2 krista - positive (3+) Microcalcifications - present in both invasive carcinoma and non-neoplastic tissue. Clinical history - Please make reference to previous specimen ([id number]) right breast at 1 o clock and [...] - 4.00 k/uL 1.02 0.86 (L) 1.08 Blount% % 9.8 10.7 11.8 Abs Blount <0.87 k/uL 0.50 0.40 0.55 Eosin% % [...] pN0(sln) MX ER positive (9%, very weak) ND negative HER overexpressed stage IIA invasive ductal carcinoma the right breast. -Recurrent pT2(m) pN0 (none of 5 LNs) MX ER +(15%, weak intensity)/ND negative (0%) HER2 3+ invasive ductal carcinoma [...] pt. - ECHO done in September at [facility]. Next due in December. - Continue [...] Caity Cote APRN.ALESSANDRO documented in this encounter [facility] 11-15-2024 History of Presen t illness Narrative [...] been reviewed prior to dispensing the medication. Funeral Counselor Assessment Patient confirmed: Yes Med/dose confirmed: Yes Supplies needed: No supplies needed Missed doses: No Estimated days supply on hand: 0 Next cycle/dose due: 11/22/24 Payment confirmed: Yes Delivery method: FedEx Signature required: Required (, Medicaid, patient preference) Delivery address: [address] [facility] [address] Delivery date: 11/20/24 Questions or concerns for [...] facility-administered medications on file prior to visit. [facility] SPECIALTY CLINICAL ASSESSMENT - HEMATOLOGY ONCOLOGY V7 Date of influenza vaccination reminder: 02/21/2024 Date of most recent vaccination assessment: 02/21/2024 Treatment Plan Information: Diagnosis: metastatic recurrence of ER+. ND-, Her2+ breast cancer Previous treatment(s): - Right [...] hx of coronary artery disease), GI toxicity, nddx-etm-mzrm syndrome (onset ~79 days), hepatotoxicity (onset ~64 [...] toxicity Mae Wise documented in this encounter [facility] 11-14-2024 Telephone encounter Note Rx was sent on 11/09/2024 Refused this refill Chrissie Elliott LPN [facility] 11-14-2024 Miscellaneous Notes Rx was sent on 11/09/2024 Refused this refill Chrissie Elliott LPN documented in this encounter [facility] 11-09-2024 Telephone encounter Note Prescription Refill Information [...] Elliott LPN November 09, 2024 7:26 AM [facility] 11-09-2024 Miscellaneous Notes Prescription Refill Information The [...] 2024 7:26 AM documented in this encounter [facility] 10-31-2024 History of Presen t illness Narrative Chief Complaint Patient presents with: Recheck HPI: Renate Christiansen is a 69 year old female who presents here today for evaluation for treatment tomorrow. Per Dr. Rivers's previous note: H/o discovered a lump on the lower inner portion of her right breast in the fall of 2015. She was seen at [facility] and underwent a right sided core biopsy on 02/16/2016 by interventional radiology. The tissue specimen demonstrated invasive ductal carcinoma, Yohan grade 2. ER positive (90%, very weak) and ND negative (0%). HER-2 was quantified at 3+. [...] positive, >90% Ki-67 (30-9) positive, 12% CK8 (78qdyhF31) positive CK5-6 (D5 & 1684) negative Calponin-1 (CM114L) negative P40 (BC28) negative E-Cad (ECH-6) positive MORPHOMETRIC ANALYSIS ER (clone 6F11) 15%, weak intensity ND (clone 16/1E2) 0% Her-2Neu (clone CB11) 3+ Block B Calponin-1 (WJ775M) negative P40 (BC28) negative CK8 (31ezsoZ57) positive INTERPRETATION: A. Right breast 1 o clock, biopsy: Invasive ductal carcinoma, grade 3/3. Positive for estrogen receptors (favorable prognostic indicator). Negative for progesterone receptors (unfavorable prognostic indicator). Positive for overexpression of NKI5qzy. B. Right breast 2 o clock, biopsy: [...] - previously performed on section of tumor ([id number] / [id number]). ER - positive (15%, weak intensity) ND - negative (0%) Her2 krista - positive (3+) Microcalcifications - present in both invasive carcinoma and non-neoplastic tissue. Clinical history - Please make reference to previous specimen ([id number]) right breast at 1 o clock and [...] 4.00 k/uL 0.82 (L) 1.02 0.86 (L) Blount% % 11.3 9.8 10.7 Abs Blount <0.87 k/uL 0.53 0.50 0.40 Eosin% % [...] pN0(sln) MX ER positive (9%, very weak) ND negative HER overexpressed stage IIA invasive ductal carcinoma the right breast. -Recurrent pT2(m) pN0 (none of 5 LNs) MX ER +(15%, weak intensity)/ND negative (0%) HER2 3+ invasive ductal carcinoma [...] pending. - ECHO done in September at [facility]. Next due in December. - Continue [...] as necessary for today's visit. Caity Cote APRN.[employer] documented in this encounter [facility] 10-10-2024 History of Presen t illness Narrative Chief Complaint Patient presents with: Established Patient HPI: Renate Christiansen is a 69 year old female who presents here today for evaluation for treatment tomorrow. Per Dr. Rivers's previous note: H/o discovered a lump on the lower inner portion of her right breast in the fall of 2015. She was seen at [facility] and underwent a right sided core biopsy on 02/16/2016 by interventional radiology. The tissue specimen demonstrated invasive ductal carcinoma, Yohan grade 2. ER positive (90%, very weak) and ND negative (0%). HER-2 was quantified at 3+. [...] positive, >90% Ki-67 (30-9) positive, 12% CK8 (87mxwgB67) positive CK5-6 (D5 & 1684) negative Calponin-1 (JL930D) negative P40 (BC28) negative E-Cad (ECH-6) positive MORPHOMETRIC ANALYSIS ER (clone 6F11) 15%, weak intensity ND (clone 16/1E2) 0% Her-2Neu (clone CB11) 3+ Block B Calponin-1 (NP913S) negative P40 (BC28) negative CK8 (16rlaoR61) positive INTERPRETATION: A. Right breast 1 o clock, biopsy: Invasive ductal carcinoma, grade 3/3. Positive for estrogen receptors (favorable prognostic indicator). Negative for progesterone receptors (unfavorable prognostic indicator). Positive for overexpression of JBF4dxk. B. Right breast 2 o clock, biopsy: [...] ductal carcinoma (no special type) Histologic Grade ([place] grade): Glandular/tubular differentiation - score 3 Nuclear [...] - previously performed on section of tumor ([id number] / [id number]). ER - positive (15%, weak intensity) ND - negative (0%) Her2 krista - positive (3+) Microcalcifications - present in both invasive carcinoma and non-neoplastic tissue. Clinical history - Please make reference to previous specimen ([id number]) right breast at 1 o clock and [...] 4.00 k/uL 0.78 (L) 0.82 (L) 1.02 Blount% % 12.4 11.3 9.8 Abs Blount <0.87 k/uL 0.43 0.53 0.50 Eosin% % [...] pN0(sln) MX ER positive (9%, very weak) ND negative HER overexpressed stage IIA invasive ductal carcinoma the right breast. -Recurrent pT2(m) pN0 (none of 5 LNs) MX ER +(15%, weak intensity)/ND negative (0%) HER2 3+ invasive ductal carcinoma [...] pt. - ECHO done in September at [facility]. Next due in December. - Continue [...] as necessary for today's visit. Caity Cote APRN.[employer] documented in this encounter [facility] 10-03-2024 History of Presen t illness Narrative Chief Complaint Patient presents with: Established Patient HPI: Renate Christiansen is a 68 year old female who presents here today for evaluation for treatment tomorrow. Per Dr. Rivesr's previous note: H/o discovered a lump on the lower inner portion of her right breast in the fall of 2015. She was seen at [facility] and underwent a right sided core biopsy on 02/16/2016 by interventional radiology. The tissue specimen demonstrated invasive ductal carcinoma, Yohan grade 2. ER positive (90%, very weak) and ND negative (0%). HER-2 was quantified at 3+. [...] positive, >90% Ki-67 (30-9) positive, 12% CK8 (49ssmzP23) positive CK5-6 (D5 & 1684) negative Calponin-1 (PU221S) negative P40 (BC28) negative E-Cad (ECH-6) positive MORPHOMETRIC ANALYSIS ER (clone 6F11) 15%, weak intensity ND (clone 16/1E2) 0% Her-2Neu (clone CB11) 3+ Block B Calponin-1 (DZ878H) negative P40 (BC28) negative CK8 (91cihmZ77) positive INTERPRETATION: A. Right breast 1 o clock, biopsy: Invasive ductal carcinoma, grade 3/3. Positive for estrogen receptors (favorable prognostic indicator). Negative for progesterone receptors (unfavorable prognostic indicator). Positive for overexpression of BWS0geq. B. Right breast 2 o clock, biopsy: [...] - previously performed on section of tumor ([id number] / [id number]). ER - positive (15%, weak intensity) ND - negative (0%) Her2 krista - positive (3+) Microcalcifications - present in both invasive carcinoma and non-neoplastic tissue. Clinical history - Please make reference to previous specimen ([id number]) right breast at 1 o clock and [...] pN0(sln) MX ER positive (9%, very weak) ND negative HER overexpressed stage IIA invasive ductal carcinoma the right breast. -Recurrent pT2(m) pN0 (none of 5 LNs) MX ER +(15%, weak intensity)/ND negative (0%) HER2 3+ invasive ductal carcinoma [...] call office with any questions/concerns. Quita Hoff, ELECTRONICS SPECIALIST.[employer] I spent a total of 30 minutes on the date of the service which included preparing to see the patient, qocq-of-wgsu patient care, completing clinical documentation, obtaining and/or [...] of this patient. documented in this encounter [facility] 2024 Evaluation + Plan note Associated Problem(s): Malignant neoplasm metastatic to both lungs T [facility] Work Phone: 2024 Evaluation + Plan note Associated Problem(s): Heart disease [facility] Work Phone: 2024 History of Presen [...] youngest grandson to graduate Urgent care in [place] Cxr showed atelectasis Last CT chest 2024 [...] cancer Heart disease documented in this encounter [facility] Work Phone: 2024 Miscellaneous Notes Associated Problem(s): Malignant neoplasm metastatic to both lungs Associated Problem(s): Heart disease documented in this encounter [facility] Work Phone: 09-26-2024 Telephone encounter Note Patient was prescribed doxycycline. Patient informed she should picker packer and start. Per Dr. Rivers, delay cycle by 1 week; she will be short 1 day of pills for her next cycle. PSS- please contact patient today or tomorrow to get appointments rescheduled; labs/OV/treatment. OV can be with an DEVELOPER EVANGELIST if needed. Thank you. Carla Almonte RN [facility] 09-26-2024 Miscellaneous Notes Patient was prescribed doxycycline. Patient informed she should picker packer and start. Per Dr. Rivers, delay cycle by 1 week; she will be short 1 day of pills for her next cycle. PSS- please contact patient today or tomorrow to get appointments rescheduled; labs/OV/treatment. OV can be with an DEVELOPER EVANGELIST if needed. Thank you. Carla Almonte RN Patient called stating provider informed her she may have pneumonia and that an antibiotic has been ordered. Patient wants to be sure it is okay with Dr. Rivers before she picks it up. Patient went to the the medical center. Temperature was 101.4 F. CXR still pending. [...] back negative. Care Coordination Triage Note [facility] [place] Situation: Patient reports Fever, cough, congestion, runny [...] 100.8. She is going to have spouse picker packer covid test. documented in this encounter [facility] 09-26-2024 Telephone encounter Note Patient called stating provider informed her she may have pneumonia and that an antibiotic has been ordered. Patient wants to be sure it is okay with Dr. Rivers before she picks it up. [facility] Work Phone: 09-26-2024 Telephone encounter Note Patient went to the the medical center. Temperature was 101.4 F. CXR still pending. Influenza was negative. Patient stated she was swabbed for COVID as well but the results won't be back until tomorrow. Carla Almonte RN [facility] 09-26-2024 Telephone encounter Note [facility] Care Coordination FOLLOW-UP NOTE Care Coordination Plan: patient informed of Dr. Rivers's response, stated understanding. Caral Almonte RN September 26, 2024 [facility] 09-26-2024 Telephone encounter Note I think it best that she get checked at urgent care. Rip Rivers DO [facility] 09-26-2024 Telephone encounter Note Patient states Covid test came back negative. T [facility] 09-26-2024 Telephone encounter Note Care Coordination Triage Note [facility] [place] Situation: Patient reports Fever, cough, congestion, runny [...] Almonte RN September 26, 2024 9:19 AM [facility] 09-26-2024 Telephone encounter Note Patient called to cancel lab and office visit today, treatment for tomorrow. States she is running fever of 100.8. She is going to have spouse picker packer covid test. T [facility] 09-17-2024 History of Presen t illness Narrative [...] been reviewed prior to dispensing the medication. Funeral Counselor Assessment Patient confirmed: Yes Med/dose confirmed: Yes Supplies needed: No supplies needed Missed doses: No Estimated days supply on hand: 0 Next cycle/dose due: 09/24/24 Copay amount: 0 Copay form of payment: Credit card on file Payment confirmed: Yes Signature required: No Delivery address: [address] *deliver to back door* [facility] [id number] Delivery date: 09/19/24 Questions or concerns for [...] facility-administered medications on file prior to visit. [facility] SPECIALTY CLINICAL ASSESSMENT - HEMATOLOGY ONCOLOGY V6: Assessment to use: Refill Date of influenza vaccination reminder: 02/21/2024 Date of most recent vaccination assessment: 02/21/2024 Treatment Plan Information: Diagnosis: metastatic recurrence of ER+. ND-, Her2+ breast cancer Previous treatment(s): - Right [...] hx of coronary artery disease), GI toxicity, xbuz-rvo-sjdl syndrome (onset ~79 days), hepatotoxicity (onset ~64 [...] toxicity Kaycee Juares documented in this encounter [facility] 09-05-2024 History of Presen t illness Narrative Chief Complaint Patient presents with: Established Patient HPI: Renate Christiansen is a 68 year old female who presents here today for evaluation for treatment tomorrow. Per Dr. Rivers's previous note: H/o discovered a lump on the lower inner portion of her right breast in the fall of 2015. She was seen at [facility] and underwent a right sided core biopsy on 02/16/2016 by interventional radiology. The tissue specimen demonstrated invasive ductal carcinoma, [place] grade 2. ER positive (90%, very weak) and ND negative (0%). HER-2 was quantified at 3+. [...] positive, >90% Ki-67 (30-9) positive, 12% CK8 (96evwrR96) positive CK5-6 (D5 & 1684) negative Calponin-1 (OU257E) negative P40 (BC28) negative E-Cad (ECH-6) positive MORPHOMETRIC ANALYSIS ER (clone 6F11) 15%, weak intensity ND (clone 16/1E2) 0% Her-2Neu (clone CB11) 3+ Block B Calponin-1 (YP767I) negative P40 (BC28) negative CK8 (07nzbiT34) positive INTERPRETATION: A. Right breast 1 o clock, biopsy: Invasive ductal carcinoma, grade 3/3. Positive for estrogen receptors (favorable prognostic indicator). Negative for progesterone receptors (unfavorable prognostic indicator). Positive for overexpression of IDY9ahn. B. Right breast 2 o clock, biopsy: [...] - previously performed on section of tumor ([id number] / [id number]). ER - positive (15%, weak intensity) ND - negative (0%) Her2 krista - positive (3+) Microcalcifications - present in both invasive carcinoma and non-neoplastic tissue. Clinical history - Please make reference to previous specimen ([id number]) right breast at 1 o clock and [...] 4.00 k/uL 0.83 (L) 1.00 0.78 (L) Blount% % 13.0 12.2 12.4 Abs Blount <0.87 k/uL 0.42 0.46 0.43 Eosin% % [...] pN0(sln) MX ER positive (9%, very weak) ND negative HER overexpressed stage IIA invasive ductal carcinoma the right breast. -Recurrent pT2(m) pN0 (none of 5 LNs) MX ER +(15%, weak intensity)/ND negative (0%) HER2 3+ invasive ductal carcinoma [...] as necessary for today's visit. Caity Cote APRN.[employer] documented in this encounter [facility] 08-30-2024 History of Presen t illness Narrative [...] PATIENT PRESENTS WITH AN IMPLANTABLE OR ATTACHED LAMP REPLACER: No RADIOLOGY DEPARTMENT: CT; Exam(s) Completed: Chest Abdomen Pelvis PERIPHERAL IV DATA: power ort accessed by hemHomeforswap SIGNED BY: RT Ashley(R) August 30, 2024 2:27 PM documented in this encounter [facility] 08-30-2024 History of Presen t illness Narrative Patient is here for IVAD port flush/blood draw per [facility] [place] protocol. IVAD is located in left upper [...] tolerated procedure well. documented in this encounter [facility] 08-30-2024 History of Presen t illness Narrative [...] PATIENT PRESENTS WITH AN IMPLANTABLE OR ATTACHED LAMP REPLACER: No RADIOLOGY DEPARTMENT: Ultrasound PERIPHERAL IV DATA: Not applicable SIGNED BY: Bridget Hall RDMS August 30, 2024 8:04 AM documented in this encounter [facility] 08-29-2024 Telephone encounter Note Patient scheduled for 9:00. Send patient to hem/onc after she gets prep. [facility] Work Phone: 08-29-2024 Miscellaneous Notes Patient scheduled for 9:00. Send patient to hem/onc after she gets prep. Pt would like to use port for appt on 08/30/[address] She has an US appt at 7:45 can the port be after that and before the prep time at 8:20am Please call pt to confirm time documented in this encounter [facility] 08-29-2024 Telephone encounter Note Pt would like to use port for appt on 08/30/[address] She has an US appt at 7:45 can the port be after that and before the prep time at 8:20am Please call pt to confirm time [facility] 08-27-2024 History of Presen t illness Narrative [...] been reviewed prior to dispensing the medication. Funeral Counselor Assessment Patient confirmed: Yes Med/dose confirmed: Yes Supplies needed: No supplies needed Missed doses: No Estimated days supply on hand: 0 Next cycle/dose due: 09/03/24 Copay amount: 0 Payment confirmed: Yes Delivery method: FedEx Signature required: No Delivery address: [address] [place] [address] *take to back door* [place] [id number] Delivery date: 08/30/24 Questions or concerns for [...] facility-administered medications on file prior to visit. [facility] RX SPECIALTY CLINICAL ASSESSMENT - HEMATOLOGY ONCOLOGY V6: Assessment to use: Refill Date of influenza vaccination reminder: 02/21/2024 Date of most recent vaccination assessment: 02/21/2024 Treatment Plan Information: Diagnosis: metastatic recurrence of ER+. ND-, Her2+ breast cancer Previous treatment(s): - Right [...] hx of coronary artery disease), GI toxicity, weqb-lxt-pvog syndrome (onset ~79 days), hepatotoxicity (onset ~64 [...] toxicity Kaycee Juares documented in this encounter [facility] 08-16-2024 History of Presen t illness Narrative Office visit with Dr. Rivers on 08/15/24. Assessment reviewed and unchanged. Office visit with Dr. Rivers on 08/15/24. Assessment reviewed and unchanged. documented in this encounter [facility] 08-15-2024 History of Presen t illness Narrative Oncologic problem(s): 1) Metastatic recurrence of ER positive, ND negative, HER2 positive breast cancer. 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 HPI: The patient is a 68 year old female who discovered a lump on the lower inner portion of her right breast in the fall of 2015. She was seen at [facility] and underwent a right sided core biopsy on 02/16/2016 by interventional radiology. The tissue specimen demonstrated invasive ductal carcinoma, [place] grade 2. ER positive (90%, very weak) and ND negative (0%). HER-2 was quantified at 3+. [...] positive, >90% Ki-67 (30-9) positive, 12% CK8 (45woeaK86) positive CK5-6 (D5 & 1684) negative Calponin-1 (TP824L) negative P40 (BC28) negative E-Cad (ECH-6) positive MORPHOMETRIC ANALYSIS ER (clone 6F11) 15%, weak intensity ND (clone 16/1E2) 0% Her-2Neu (clone CB11) 3+ Block B Calponin-1 (II854E) negative P40 (BC28) negative CK8 (66nnskC03) positive INTERPRETATION: A. Right breast 1 o clock, biopsy: Invasive ductal carcinoma, grade 3/3. Positive for estrogen receptors (favorable prognostic indicator). Negative for progesterone receptors (unfavorable prognostic indicator). Positive for overexpression of FZZ8cdm. B. Right breast 2 o clock, biopsy: [...] - previously performed on section of tumor ([id number] / [id number]). ER - positive (15%, weak intensity) ND - negative (0%) Her2 krista - positive (3+) Microcalcifications - present in both invasive carcinoma and non-neoplastic tissue. Clinical history - Please make reference to previous specimen ([id number]) right breast at 1 o clock and [...] pN0(sln) MX ER positive (9%, very weak) ND negative HER overexpressed stage IIA invasive ductal carcinoma the right breast. -Recurrent pT2(m) pN0 (none of 5 LNs) MX ER +(15%, weak intensity)/ND negative (0%) HER2 3+ invasive ductal carcinoma [...] Rip Rivers DO documented in this encounter [facility] 08-07-2024 Telephone encounter Note Prescription Refill Information [...] Elliott LPN August 07, 2024 7:35 AM [facility] 08-07-2024 Miscellaneous Notes Prescription Refill Information The [...] 2024 7:35 AM documented in this encounter [facility] 08-07-2024 Telephone encounter Note Prescription Refill Information [...] Elliott LPN August 07, 2024 7:31 AM [facility] 08-07-2024 Miscellaneous Notes Prescription Refill Information The [...] 2024 7:31 AM documented in this encounter [facility] 07-27-2024 Telephone encounter Note SOCIAL WORK FOLLOW UP NOTE: [facility] Faxed to [facility] 07/17/24. Sent to internal scanning. SHANE Leahy [facility] 07-27-2024 Miscellaneous Notes SOCIAL WORK FOLLOW UP NOTE: [facility] Faxed to [facility] 07/17/24. Sent to internal scanning. SHANE Leahy Printed. Rip Rivers DO SOCIAL WORK FOLLOW UP NOTE: [facility] Patient assistance [employer] is asking for a printed script of pt's Tukysa. Can you please include enough refills for the year? Thank you, SHNAE Leahy documented in this encounter [facility] 07-25-2024 History of Presen t illness Narrative Renate Christiansen 1955 07/25/2024 HPI: Renate Christiansen is a 68 year old female who presents here today for follow up met. breast cancer. Per Dr. Rivers's previous note: H/o discovered a lump on the lower inner portion of her right breast in the fall of 2015. She was seen at [facility] and underwent a right sided core biopsy on 02/16/2016 by interventional radiology. The tissue specimen demonstrated invasive ductal carcinoma, [place] grade 2. ER positive (90%, very weak) and ND negative (0%). HER-2 was quantified at 3+. [...] positive, >90% Ki-67 (30-9) positive, 12% CK8 (26gwfhB53) positive CK5-6 (D5 & 1684) negative Calponin-1 (MN981W) negative P40 (BC28) negative E-Cad (ECH-6) positive MORPHOMETRIC ANALYSIS ER (clone 6F11) 15%, weak intensity ND (clone 16/1E2) 0% Her-2Neu (clone CB11) 3+ Block B Calponin-1 (BC233M) negative P40 (BC28) negative CK8 (60tyzwC57) positive INTERPRETATION: A. Right breast 1 o clock, biopsy: Invasive ductal carcinoma, grade 3/3. Positive for estrogen receptors (favorable prognostic indicator). Negative for progesterone receptors (unfavorable prognostic indicator). Positive for overexpression of QPA8jle. B. Right breast 2 o clock, biopsy: [...] ductal carcinoma (no special type) Histologic Grade ([place] grade): Glandular/tubular differentiation - score 3 Nuclear [...] - previously performed on section of tumor ([id number] / [id number]). ER - positive (15%, weak intensity) ND - negative (0%) Her2 krista - positive (3+) Microcalcifications - present in both invasive carcinoma and non-neoplastic tissue. Clinical history - Please make reference to previous specimen ([id number]) right breast at 1 o clock and [...] call office with any questions/concerns. Quita Hoff APRN.[employer] I spent a total of 30 minutes on the date of the service which included preparing to see the patient, zwlx-iw-fkvu patient care, completing clinical documentation, obtaining and/or [...] of this patient. documented in this encounter [facility] 07-17-2024 Telephone encounter Note Printed. Rip Rivers DO [facility] 07-17-2024 Telephone encounter Note SOCIAL WORK FOLLOW UP NOTE: [facility] Patient assistance company is asking for a printed script of pt's Tukysa. Can you please include enough refills for the year? Thank you, SHANE Leahy [facility] 07-04-2024 Telephone encounter Note SOCIAL WORK FOLLOW UP NOTE: [facility] Date of service: July 04, 2024 Renate [...] well. Once completed, SW will fax to [employer] and send to internal scanning. No other needs identified at this time. PLAN: Continue follow up as needed F/U APPOINTMENT: PRN Assigned ELOISA listed in Care Team tab: Yes SHANE Leahy [facility] 07-04-2024 Miscellaneous Notes SOCIAL WORK FOLLOW UP NOTE: [facility] Date of service: July 04, 2024 Renate [...] well. Once completed, SW will fax to [employer] and send to internal scanning. No other needs identified at this time. PLAN: Continue follow up as needed F/U APPOINTMENT: PRN Assigned ELOISA listed in Care Team tab: Yes DIO Leahy-S documented in this encounter [facility] 07-04-2024 History of Presen t illness Narrative Chief Complaint Patient presents with: Established Patient HPI: Renate Christiansen is a 68 year old female who presents here today for follow up met. breast cancer. Per Dr. Rivers's previous note: H/o discovered a lump on the lower inner portion of her right breast in the fall of 2015. She was seen at [facility] and underwent a right sided core biopsy on 02/16/2016 by interventional radiology. The tissue specimen demonstrated invasive ductal carcinoma, Yohan grade 2. ER positive (90%, very weak) and ND negative (0%). HER-2 was quantified at 3+. [...] positive, >90% Ki-67 (30-9) positive, 12% CK8 (63dwolX55) positive CK5-6 (D5 & 1684) negative Calponin-1 (GT141Y) negative P40 (BC28) negative E-Cad (ECH-6) positive MORPHOMETRIC ANALYSIS ER (clone 6F11) 15%, weak intensity ND (clone 16/1E2) 0% Her-2Neu (clone CB11) 3+ Block B Calponin-1 (TZ649Y) negative P40 (BC28) negative CK8 (46ugupA63) positive INTERPRETATION: A. Right breast 1 o clock, biopsy: Invasive ductal carcinoma, grade 3/3. Positive for estrogen receptors (favorable prognostic indicator). Negative for progesterone receptors (unfavorable prognostic indicator). Positive for overexpression of XBA2tco. B. Right breast 2 o clock, biopsy: [...] - previously performed on section of tumor ([id number] / [id number]). ER - positive (15%, weak intensity) ND - negative (0%) Her2 krista - positive (3+) Microcalcifications - present in both invasive carcinoma and non-neoplastic tissue. Clinical history - Please make reference to previous specimen ([id number]) right breast at 1 o clock and [...] k/uL 0.65 (L) 0.77 (L) 0.93 (L) Blount% % 15.6 14.6 12.3 Abs Blount <0.87 k/uL 0.56 0.51 0.42 Eosin% % [...] as necessary for today's visit. Caity Cote APRN.[employer] documented in this encounter [facility] 07-04-2024 History of Presen t illness Narrative Patient is here for IVAD port flush/blood draw per [facility] [place] protocol. IVAD is located in left upper [...] tolerated procedure well. documented in this encounter [facility] 06-29-2024 Telephone encounter Note The following approved [...] mg total. Authorizing Provider: RIP RIVERS DO [facility] 06-29-2024 Miscellaneous Notes The following approved medication [...] it is [facility]. documented in this encounter [facility] 06-29-2024 Telephone encounter Note Rx pended. Jazlyn Harding LPN [facility] 06-29-2024 Telephone encounter Note Patient calling for refill of Tukysa. Patient states it is free from pharm. Patient states it is [facility]. [facility] Work Phone: 06-29-2024 History of Presen t [...] Demerol [Meperidine* Unknown Erythromycin Unknown Latex Rash [place] [Hydrocodone-* Hives [place] [Nalbuphine * Unknown Paxlovid [Nirmatrel* Intolerance Kidneys shut down Percocet [Oxycodone* Rash, Itching Jane Lew Other: See Comments Migraine headache Sulfa (Sulfonamide [...] the medication. Sunitha QuijanoD Clinical Pharmacist, Oncology [facility] P: ; F: Pool: P [facility] Pool #: [id number] Funeral Counselor Assessment Patient confirmed: Yes Med/dose confirmed: Yes Supplies needed: No supplies needed Missed doses: No Estimated days supply on hand: 0 Next cycle/dose due: 07/02/24 Copay amount: 0 Payment confirmed: Yes Delivery method: FedEx Signature required: Waived on patient request Delivery address: [address] [place] [address], *Take to back door,* [place], [address] Delivery date: 06/30/24 Questions or concerns for [...] facility-administered medications on file prior to visit. [facility] RX SPECIALTY CLINICAL ASSESSMENT - HEMATOLOGY [...] Plan Information: Diagnosis: metastatic recurrence of ER+. ND-, Her2+ breast cancer Previous treatment(s): - Right [...] hx of coronary artery disease), GI toxicity, cnby-ndf-cojz syndrome (onset ~79 days), hepatotoxicity (onset ~64 [...] toxicity Madhavi Corrales documented in this encounter [facility] 06-14-2024 History of Presen t illness Narrative Pt stated no changes to assessment from OV yesterday. Lexie Hartley, PRINCE documented in this encounter [facility] 06-13-2024 History of Presen t illness Narrative Oncologic problem(s): 1) Metastatic recurrence of ER positive, ND negative, HER2 positive breast cancer. 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 HPI: The patient is a 68 year old female who discovered a lump on the lower inner portion of her right breast in the fall of 2015. She was seen at [facility] and underwent a right sided core biopsy on 02/16/2016 by interventional radiology. The tissue specimen demonstrated invasive ductal carcinoma, [place] grade 2. ER positive (90%, very weak) and ND negative (0%). HER-2 was quantified at 3+. [...] positive, >90% Ki-67 (30-9) positive, 12% CK8 (64clvuL49) positive CK5-6 (D5 & 1684) negative Calponin-1 (VA352J) negative P40 (BC28) negative E-Cad (ECH-6) positive MORPHOMETRIC ANALYSIS ER (clone 6F11) 15%, weak intensity ND (clone 16/1E2) 0% Her-2Neu (clone CB11) 3+ Block B Calponin-1 (JZ083F) negative P40 (BC28) negative CK8 (77mrovB20) positive INTERPRETATION: A. Right breast 1 o clock, biopsy: Invasive ductal carcinoma, grade 3/3. Positive for estrogen receptors (favorable prognostic indicator). Negative for progesterone receptors (unfavorable prognostic indicator). Positive for overexpression of UDP9rhz. B. Right breast 2 o clock, biopsy: [...] - previously performed on section of tumor ([id number] / [id number]). ER - positive (15%, weak intensity) ND - negative (0%) Her2 krista - positive (3+) Microcalcifications - present in both invasive carcinoma and non-neoplastic tissue. Clinical history - Please make reference to previous specimen ([id number]) right breast at 1 o clock and [...] pN0(sln) MX ER positive (9%, very weak) ND negative HER overexpressed stage IIA invasive ductal carcinoma the right breast. -Recurrent pT2(m) pN0 (none of 5 LNs) MX ER +(15%, weak intensity)/ND negative (0%) HER2 3+ invasive ductal carcinoma [...] Rip Rivers DO documented in this encounter [facility] 06-04-2024 History of Presen t illness Narrative [...] been reviewed prior to dispensing the medication. Funeral Counselor Assessment Patient confirmed: Yes Med/dose confirmed: Yes Supplies needed: No supplies needed Missed doses: No Estimated days supply on hand: 0 Next cycle/dose due: 06/11/24 Copay amount: 0 Delivery method: FedEx Signature required: Waived on patient request Delivery address: [address] [facility] [id number] Delivery date: 06/08/24 Questions or concerns for [...] facility-administered medications on file prior to visit. [facility] RX SPECIALTY CLINICAL ASSESSMENT - HEMATOLOGY ONCOLOGY V6: Assessment to use: Refill Date of influenza vaccination reminder: 02/21/2024 Date of most recent vaccination assessment: 02/21/2024 Treatment Plan Information: Diagnosis: metastatic recurrence of ER+. ND-, Her2+ breast cancer Previous treatment(s): - Right [...] hx of coronary artery disease), GI toxicity, cegm-mug-aris syndrome (onset ~79 days), hepatotoxicity (onset ~64 [...] toxicity Crystal Fuentes documented in this encounter [facility] 05-29-2024 Telephone encounter Note SOCIAL WORK FOLLOW UP NOTE: [facility] Enrollment form drafted and awaiting signature from pt and provider. Will fax once completed. SHANE Leahy [facility] 05-29-2024 Miscellaneous Notes SOCIAL WORK FOLLOW UP NOTE: [facility] CENTER Enrollment form drafted and awaiting signature from pt and provider. Will fax once completed. SHANE Leahy Pt is needing re enrollment form for 2024 for Tukys[employer]. New form can be found on [employer]. Please fax to [phone]. Thank you documented in this encounter [facility] 05-28-2024 Telephone encounter Note Pt is needing re enrollment form for 2024 for Tukysa. New form can be found on [employer]. Please fax to [phone]. Thank you [facility] 05-23-2024 History of Presen t illness Narrative Oncologic problem(s): 1) Metastatic recurrence of ER positive, ND negative, HER2 positive breast cancer. 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 HPI: The patient is a 68 year old female who discovered a lump on the lower inner portion of her right breast in the fall of 2015. She was seen at [facility] and underwent a right sided core biopsy on 02/16/2016 by interventional radiology. The tissue specimen demonstrated invasive ductal carcinoma, [place] grade 2. ER positive (90%, very weak) and ND negative (0%). HER-2 was quantified at 3+. [...] positive, >90% Ki-67 (30-9) positive, 12% CK8 (07fcxwS75) positive CK5-6 (D5 & 1684) negative Calponin-1 (AG236U) negative P40 (BC28) negative E-Cad (ECH-6) positive MORPHOMETRIC ANALYSIS ER (clone 6F11) 15%, weak intensity ND (clone 16/1E2) 0% Her-2Neu (clone CB11) 3+ Block B Calponin-1 (AP831N) negative P40 (BC28) negative CK8 (91xpgkF31) positive INTERPRETATION: A. Right breast 1 o clock, biopsy: Invasive ductal carcinoma, grade 3/3. Positive for estrogen receptors (favorable prognostic indicator). Negative for progesterone receptors (unfavorable prognostic indicator). Positive for overexpression of VGD1rvt. B. Right breast 2 o clock, biopsy: [...] ductal carcinoma (no special type) Histologic Grade ([place] grade): Glandular/tubular differentiation - score 3 Nuclear [...] - previously performed on section of tumor ([id number] / [id number]). ER - positive (15%, weak intensity) ND - negative (0%) Her2 krista - positive (3+) Microcalcifications - present in both invasive carcinoma and non-neoplastic tissue. Clinical history - Please make reference to previous specimen ([id number]) right breast at 1 o clock and [...] pN0(sln) MX ER positive (9%, very weak) ND negative HER overexpressed stage IIA invasive ductal carcinoma the right breast. -Recurrent pT2(m) pN0 (none of 5 LNs) MX ER +(15%, weak intensity)/ND negative (0%) HER2 3+ invasive ductal carcinoma [...] the date of the service which included cyjt-nk-iyom patient care, completing clinical documentation, performing a medically appropriate examination, counseling and educating the patient/family/caregiver, ordering medications, tests, or procedures, communicating with other HCPs (not separately reported), and communicating results to the patient/family/caregiver. Rip Rivers DO documented in this encounter [facility] 05-23-2024 History of Presen t illness Narrative [...] Ana Velásquez RN documented in this encounter [facility] 05-14-2024 History of Presen t illness Narrative [...] been reviewed prior to dispensing the medication. Funeral Counselor Assessment Patient confirmed: Yes Med/dose confirmed: Yes Supplies needed: No supplies needed Missed doses: Yes Count of missed doses: 1 Reason for missed doses: Forgot dose Estimated days supply on hand: 0 (#3 on hand) Next cycle/dose due: 05/21/24 Copay amount: 0 Delivery method: FedEx Signature required: Waived on patient request Delivery address: [address] [place] [id number] Delivery date: 05/17/24 Questions or concerns for [...] facility-administered medications on file prior to visit. [facility] SPECIAL[facility] CLINICAL ASSESSMENT - HEMATOLOGY ONCOLOGY V6: Assessment to use: Refill Date of influenza vaccination reminder: 02/21/2024 Date of most recent vaccination assessment: 02/21/2024 Treatment Plan Information: Diagnosis: metastatic recurrence of ER+. ND-, Her2+ breast cancer Previous treatment(s): - Right [...] hx of coronary artery disease), GI toxicity, tzmn-ska-cxzr syndrome (onset ~79 days), hepatotoxicity (onset ~64 [...] toxicity Shanna Davis documented in this encounter [facility] 05-04-2024 History of Presen t illness Narrative . 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 HPI: The patient is a 68 year old female who discovered a lump on the lower inner portion of her right breast in the fall of 2015. She was seen at [facility] and underwent a right sided core biopsy on 02/16/2016 by interventional radiology. The tissue specimen demonstrated invasive ductal carcinoma, [place] grade 2. ER positive (90%, very weak) and ND negative (0%). HER-2 was quantified at 3+. [...] positive, >90% Ki-67 (30-9) positive, 12% CK8 (98dmccS99) positive CK5-6 (D5 & 1684) negative Calponin-1 (WQ598T) negative P40 (BC28) negative E-Cad (ECH-6) positive MORPHOMETRIC ANALYSIS ER (clone 6F11) 15%, weak intensity ND (clone 16/1E2) 0% Her-2Neu (clone CB11) 3+ Block B Calponin-1 (BS359J) negative P40 (BC28) negative CK8 (58omaxY25) positive INTERPRETATION: A. Right breast 1 o clock, biopsy: Invasive ductal carcinoma, grade 3/3. Positive for estrogen receptors (favorable prognostic indicator). Negative for progesterone receptors (unfavorable prognostic indicator). Positive for overexpression of GML6dnf. B. Right breast 2 o clock, biopsy: [...] ductal carcinoma (no special type) Histologic Grade ([place] grade): Glandular/tubular differentiation - score 3 Nuclear [...] - previously performed on section of tumor ([id number] / [id number]). ER - positive (15%, weak intensity) ND - negative (0%) Her2 krista - positive (3+) Microcalcifications - present in both invasive carcinoma and non-neoplastic tissue. Clinical history - Please make reference to previous specimen ([id number]) right breast at 1 o clock and [...] pN0(sln) MX ER positive (9%, very weak) ND negative HER overexpressed stage IIA invasive ductal carcinoma the right breast. -Recurrent pT2(m) pN0 (none of 5 LNs) MX ER +(15%, weak intensity)/ND negative (0%) HER2 3+ invasive ductal carcinoma [...] Rip Rivers DO documented in this encounter [facility] 04-24-2024 History of Presen t illness Narrative [...] PATIENT PRESENTS WITH AN IMPLANTABLE OR ATTACHED LAMP REPLACER: No RADIOLOGY DEPARTMENT: CT; Exam(s) Completed: Chest Abdomen Pelvis PERIPHERAL IV DATA: power port accessed by [employer] SIGNED BY: RT Ashley(R) April 24, 2024 11:09 AM documented in this encounter [facility] 04-23-2024 Telephone encounter Note Scheduled. Patient informed. [facility] Work Phone: 04-23-2024 Miscellaneous Notes Scheduled. Patient informed. Pt would like to use port for appt on 04/24/[address] @ 9:20 drink 10:20 scan Please call pt to confirm time documented in this encounter [facility] 04-23-2024 Telephone encounter Note Pt would like to use port for appt on 04/24/[address] @ 9:20 drink 10:20 scan Please call pt to confirm time [facility] 04-20-2024 History of Presen t illness Narrative [...] been reviewed prior to dispensing the medication. Funeral Counselor Assessment Patient confirmed: Yes Med/dose confirmed: Yes Supplies needed: No supplies needed Missed doses: No Estimated days supply on hand: 2 Next cycle/dose due: 04/30/24 Copay amount: 0 Delivery method: FedEx Signature required: Waived on patient request Delivery address: [address] [facility] [id number] Delivery date: 04/26/24 Questions or concerns for [...] facility-administered medications on file prior to visit. [facility] RX SPECIALTY CLINICAL ASSESSMENT - HEMATOLOGY ONCOLOGY V6: Assessment to use: Refill Date of influenza vaccination reminder: 02/21/2024 Date of most recent vaccination assessment: 02/21/2024 Treatment Plan Information: Diagnosis: metastatic recurrence of ER+. ND-, Her2+ breast cancer Previous treatment(s): - Right [...] hx of coronary artery disease), GI toxicity, pbrn-iht-esgi syndrome (onset ~79 days), hepatotoxicity (onset ~64 [...] toxicity Crystal Fuentes documented in this encounter [facility] 04-11-2024 History of Presen t illness Narrative Chief Complaint Patient presents with: Established Patient HPI: Renate Christiansen is a 68 year old female who presents here today for evaluation for treatment tomorrow. Per Dr. Rivers's previous note: H/o discovered a lump on the lower inner portion of her right breast in the fall. She was seen at [facility] and underwent a right sided core biopsy on 02/16/2016 by interventional radiology. The tissue specimen demonstrated invasive ductal carcinoma, [place] grade 2. ER positive (90%, very weak) and ND negative (0%). HER-2 was quantified at 3+. [...] positive, >90% Ki-67 (30-9) positive, 12% CK8 (91patkZ99) positive CK5-6 (D5 & 1684) negative Calponin-1 (LF245O) negative P40 (BC28) negative E-Cad (ECH-6) positive MORPHOMETRIC ANALYSIS ER (clone 6F11) 15%, weak intensity ND (clone 16/1E2) 0% Her-2Neu (clone CB11) 3+ Block B Calponin-1 (FI046N) negative P40 (BC28) negative CK8 (10kpgyJ12) positive INTERPRETATION: A. Right breast 1 o clock, biopsy: Invasive ductal carcinoma, grade 3/3. Positive for estrogen receptors (favorable prognostic indicator). Negative for progesterone receptors (unfavorable prognostic indicator). Positive for overexpression of EWN4iwj. B. Right breast 2 o clock, biopsy: [...] ductal carcinoma (no special type) Histologic Grade ([place] grade): Glandular/tubular differentiation - score 3 Nuclear [...] - previously performed on section of tumor ([id number] / [id number]). ER - positive (15%, weak intensity) ND - negative (0%) Her2 krista - positive (3+) Microcalcifications - present in both invasive carcinoma and non-neoplastic tissue. Clinical history - Please make reference to previous specimen ([id number]) right breast at 1 o clock and [...] k/uL 0.77 (L) 0.77 (L) 0.79 (L) Blount% % 16.9 12.9 14.1 Abs Blount <0.87 k/uL 0.53 0.40 0.51 Eosin% % [...] Caity Cote APRN.ALESSANDRO documented in this encounter [facility] 04-11-2024 History of Presen t illness Narrative Patient is here for IVAD port flush/blood draw per [facility] [place] protocol. IVAD is located in right upper [...] tolerated procedure well. documented in this encounter [facility] 03-30-2024 History of Presen t illness Narrative [...] been reviewed prior to dispensing the medication. Funeral Counselor Assessment Patient confirmed: Yes Med/dose confirmed: Yes Supplies needed: No supplies needed Missed doses: No Estimated days supply on hand: 2 Next cycle/dose due: 03/30/24 Copay amount: 0 Copay form of payment: (NA) Payment confirmed: Yes Delivery method: FedEx Signature required: Waived on patient request Delivery address: [address] [place] [address] Delivery date: 04/05/24 Questions or concerns for [...] facility-administered medications on file prior to visit. [facility] RX SPECIALTY CLINICAL ASSESSMENT - HEMATOLOGY ONCOLOGY V6: Assessment to use: Refill Date of influenza vaccination reminder: 02/21/2024 Date of most recent vaccination assessment: 02/21/2024 Treatment Plan Information: Diagnosis: metastatic recurrence of ER+. ND-, Her2+ breast cancer Previous treatment(s): - Right [...] hx of coronary artery disease), GI toxicity, hspk-nwo-kkzf syndrome (onset ~79 days), hepatotoxicity (onset ~64 [...] Jethro Blackmon RPh documented in this encounter [facility] 03-22-2024 History of Presen t illness Narrative Pt. Was seen by Dr. Rivers yesterday for an office visit. Pt states no changes since yesterday and verbally agrees to treatment. documented in this encounter [facility] 03-21-2024 History of Presen t illness Narrative Oncologic problem(s): 1) Metastatic recurrence of ER positive, ND negative, HER2 positive breast cancer. 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 HPI: The patient is a 68 year old female who discovered a lump on the lower inner portion of her right breast in the fall of 2015. She was seen at [facility] and underwent a right sided core biopsy on 02/16/2016 by interventional radiology. The tissue specimen demonstrated invasive ductal carcinoma, [place] grade 2. ER positive (90%, very weak) and ND negative (0%). HER-2 was quantified at 3+. [...] positive, >90% Ki-67 (30-9) positive, 12% CK8 (40ugdwH67) positive CK5-6 (D5 & 1684) negative Calponin-1 (XC752M) negative P40 (BC28) negative E-Cad (ECH-6) positive MORPHOMETRIC ANALYSIS ER (clone 6F11) 15%, weak intensity ND (clone 16/1E2) 0% Her-2Neu (clone CB11) 3+ Block B Calponin-1 (ZE499R) negative P40 (BC28) negative CK8 (60nsuwA58) positive INTERPRETATION: A. Right breast 1 o clock, biopsy: Invasive ductal carcinoma, grade 3/3. Positive for estrogen receptors (favorable prognostic indicator). Negative for progesterone receptors (unfavorable prognostic indicator). Positive for overexpression of RCH7vpz. B. Right breast 2 o clock, biopsy: [...] - previously performed on section of tumor ([id number] / [id number]). ER - positive (15%, weak intensity) ND - negative (0%) Her2 krista - positive (3+) Microcalcifications - present in both invasive carcinoma and non-neoplastic tissue. Clinical history - Please make reference to previous specimen ([id number]) right breast at 1 o clock and [...] Lymph 1.00 - 4.00 k/uL 0.77 (L) Blount% % 12.9 Abs Blount <0.87 k/uL 0.40 Eosin% % 6.1 Abs [...] pN0(sln) MX ER positive (9%, very weak) ND negative HER overexpressed stage IIA invasive ductal carcinoma the right breast. -Recurrent pT2(m) pN0 (none of 5 LNs) MX ER +(15%, weak intensity)/ND negative (0%) HER2 3+ invasive ductal carcinoma [...] which included preparing to see the patient, egxl-fi-kbik patient care, completing clinical documentation, obtaining and/or reviewing separately obtained history, performing a medically appropriate examination, counseling and educating the patient/family/caregiver, ordering medications, tests, or procedures, communicating with other HCPs (not separately reported), and communicating results to the patient/family/caregiver. Rip Rivers DO documented in this encounter [facility] 03-09-2024 History of Presen t illness Narrative [...] been reviewed prior to dispensing the medication. Funeral Counselor Assessment Patient confirmed: Yes Med/dose confirmed: Yes Supplies needed: No supplies needed Missed doses: No Estimated days supply on hand: 2 Next cycle/dose due: 03/19/24 Copay amount: 0 Payment confirmed: Yes Delivery method: FedEx Signature required: Waived on patient request Delivery address: [address] [facility] [address] Delivery date: 03/15/24 Questions or concerns for [...] 0.9 % (flush) 10 mL (BD POSIFLUSH) [facility] RX SPECIALTY CLINICAL ASSESSMENT - HEMATOLOGY ONCOLOGY V6: Assessment to use: Refill Date of influenza vaccination reminder: 02/21/2024 Date of most recent vaccination assessment: 02/21/2024 Treatment Plan Information: Diagnosis: metastatic recurrence of ER+. ND-, Her2+ breast cancer Previous treatment(s): - Right [...] hx of coronary artery disease), GI toxicity, fobu-eiq-atnc syndrome (onset ~79 days), hepatotoxicity (onset ~64 [...] disease progression or unacceptable toxicity Rashida Butler ([employer]) documented in this encounter [facility] 02-27-2024 History of Presen t illness Narrative Chief Complaint Patient presents with: Established Patient HPI: Renate Christiansen is a 68 year old female who presents here today for evaluation for treatment tomorrow. Per Dr. Rivers's previous notes: H/o pt. discovered a lump on the lower inner portion of her right breast in the fall of 2015. She was seen at [facility] and underwent a right sided core biopsy on 02/16/2016 by interventional radiology. The tissue specimen demonstrated invasive ductal carcinoma, [place] grade 2. ER positive (90%, very weak) and ND negative (0%). HER-2 was quantified at 3+. [...] positive, >90% Ki-67 (30-9) positive, 12% CK8 (84jmjaR22) positive CK5-6 (D5 & 1684) negative Calponin-1 (IQ715N) negative P40 (BC28) negative E-Cad (ECH-6) positive MORPHOMETRIC ANALYSIS ER (clone 6F11) 15%, weak intensity ND (clone 16/1E2) 0% Her-2Neu (clone CB11) 3+ Block B Calponin-1 (RJ200N) negative P40 (BC28) negative CK8 (79mwzuK79) positive INTERPRETATION: A. Right breast 1 o clock, biopsy: Invasive ductal carcinoma, grade 3/3. Positive for estrogen receptors (favorable prognostic indicator). Negative for progesterone receptors (unfavorable prognostic indicator). Positive for overexpression of JQQ3iib. B. Right breast 2 o clock, biopsy: [...] - previously performed on section of tumor ([id number] / [id number]). ER - positive (15%, weak intensity) ND - negative (0%) Her2 krista - positive (3+) Microcalcifications - present in both invasive carcinoma and non-neoplastic tissue. Clinical history - Please make reference to previous specimen ([id number]) right breast at 1 o clock and [...] k/uL 0.79 (L) 0.98 (L) 0.77 (L) Blount% % 15.6 7.0 16.9 Abs Blount <0.87 k/uL 0.52 0.29 0.53 Eosin% % [...] Caity Cote APRN.ALESSANDRO documented in this encounter [facility] 02-03-2024 Telephone encounter Note This was sent in 02/02/2024. Jazlyn Harding LPN [facility] 02-03-2024 Miscellaneous Notes This was sent in 02/02/2024. Jazlyn Harding LPN documented in this encounter [facility] 02-03-2024 History of Presen t illness Narrative Chief Complaint Patient presents with: Established Patient HPI: Renate Christiansen is a 68 year old female who presents here today for evaluation for treatment on Tuesday. Per Dr. Rivers's previous notes: H/o pt. discovered a lump on the lower inner portion of her right breast in the fall of 2015. She was seen at [facility] and underwent a right sided core biopsy on 02/16/2016 by interventional radiology. The tissue specimen demonstrated invasive ductal carcinoma, [place] grade 2. ER positive (90%, very weak) and ND negative (0%). HER-2 was quantified at 3+. [...] positive, >90% Ki-67 (30-9) positive, 12% CK8 (05dcziD66) positive CK5-6 (D5 & 1684) negative Calponin-1 (QG033G) negative P40 (BC28) negative E-Cad (ECH-6) positive MORPHOMETRIC ANALYSIS ER (clone 6F11) 15%, weak intensity ND (clone 16/1E2) 0% Her-2Neu (clone CB11) 3+ Block B Calponin-1 (YJ936I) negative P40 (BC28) negative CK8 (31rddcJ98) positive INTERPRETATION: A. Right breast 1 o clock, biopsy: Invasive ductal carcinoma, grade 3/3. Positive for estrogen receptors (favorable prognostic indicator). Negative for progesterone receptors (unfavorable prognostic indicator). Positive for overexpression of IUC8xfz. B. Right breast 2 o clock, biopsy: [...] - previously performed on section of tumor ([id number] / [id number]). ER - positive (15%, weak intensity) ND - negative (0%) Her2 krista - positive (3+) Microcalcifications - present in both invasive carcinoma and non-neoplastic tissue. Clinical history - Please make reference to previous specimen ([id number]) right breast at 1 o clock and [...] - 4.00 k/uL 0.78 (L) 0.79 (L) Blount% % 12.7 15.6 Abs Blount <0.87 k/uL 0.55 0.52 Eosin% % 10.4 [...] and edited as necessary for today's visit. aCity Cote APRN.ALESSANDRO documented in this encounter [facility] 01-13-2024 Telephone encounter Note Patient informed of 01/15 appointment [facility] Work Phone: 01-13-2024 Miscellaneous Notes Patient informed [...] Carla Almonte RN documented in this encounter [facility] 01-13-2024 Telephone encounter Note Treatment moved as requested. Future appointments rescheduled. 1st attempt. Message left for patient to contact office to confirm Tuesday appointment for treatment. [facility] 01-13-2024 Telephone encounter Note With lab and office visit? [facility] 01-12-[address] Rivers would like to move patients Herceptin treatment up to next week, Tuesday or Tuesday. Please contact patient to schedule. Carla Almonte RN [facility] 01-11-2024 Telephone encounter Note New order faxed. Jazlyn Harding LPN [facility] 01-11-2024 Miscellaneous Notes New order faxed. Jazlyn Harding LPN Reed from [facility] calling to ask if Dr. Rivers wants a regular echo or a limited echo? If limited is ok, will need new order. (Order pended just in case) Limited Oncology echo will check everything but the valves. Reed Jazlyn Harding LPN documented in this encounter [facility] 01-11-2024 Telephone encounter Note Reed from [facility] calling to ask if Dr. Rivers wants a regular echo or a limited echo? If limited is ok, will need new order. (Order pended just in case) Limited Oncology echo will check everything but the valves. Reed Jazlyn Harding LPN [facility] 01-10-2024 Telephone encounter Note Spoke to patient. Patient stated she forgot that she hasn't taken today's dose and will be done on Tuesday. Patient will continue with the original plan of resuming Tuesday. Carla Almonte RN [facility] 01-10-2024 Miscellaneous Notes Spoke to patient. Patient [...] Carla Almonte RN documented in this encounter [facility] 01-10-2024 Telephone encounter Note Patient informed of Dr. Rivers's response, stated understanding. Patient has 6 tablets of Levaquin left, she will finish on Tuesday. Okay to resume as directed or would you like her to postpone starting until Tuesday? Thank you. Carla Almonte RN [facility] 01-10-2024 Telephone encounter Note Called patient, no answer, left a requesting a call back. Carla Almonte RN [facility] 01-09-2024 Telephone encounter Note She should complete the antibiotic this Tuesday or Tuesday. On Tuesday she can start a new cycle of capecitabine with 3 tablets in the morning and 2 tablets in the evening. Restart Tukysa that day. Lets keep her office visit scheduled the way it is for now. Plan to restart Herceptin in a few weeks. Rip Rivers DO T [facility] 01-09-2024 Telephone encounter Note Patient stated she [...] coughed at all. Carla Almonte, RN T [facility] 01-06-2024 Telephone encounter Note Spoke with assistant spa director from [facility] and the order was changed to be an echo and not an oncology echo and the codes work (except for the first one) and patient is good to go. Alexia Stephens [facility] 01-06-2024 Miscellaneous Notes Spoke with assistant spa director from [facility] and the order was changed to be an echo and not an oncology echo and the codes work (except for the first one) and patient is good to go. Alexia Stephens Dr. Rivers- please file new order. Jazlyn Harding LPN Spoke with staff at [facility] to schedule ECHO and neither ICD10 code will pass/work with the patient's insurance for approval. Please advise/change orders to a difference diagnosis code. Alexia Stephens Dr. Rivers- please file order. PSS- please assist in scheduling echo at [facility]. Jazlyn Harding LPN Call placed to patient. Reviewed instructions and pt voices understanding. Echo order placed. echocardiogram to be done at [facility], Dr. Galeano to read. Pt will picker packer Levaquin today. PSS please assist with scheduling. [...] echocardiogram to be done at [facility], Dr. Galeano to read. Would like that done as soon as able. Let's check in with her early next week regarding her symptoms of cough and getting short of breath when lying down. Rip Rivers DO documented in this encounter [facility] 01-06-[address] Rivers- please file new order. Jazlyn Harding LPN [facility] 01-06-2024 Telephone encounter Note Spoke with staff at [facility] to schedule ECHO and neither ICD10 code will pass/work with the patient's insurance for approval. Please advise/change orders to a difference diagnosis code. Alexia Stephens [facility] 01-06-[address] Rivers- please file order. PSS- please assist in scheduling echo at [facility]. Jazlyn Harding LPN [facility] 01-05-2024 Telephone encounter Note Call placed to patient. Reviewed instructions and pt voices understanding. Echo order placed. echocardiogram to be done at [facility], Dr. Galeano to read. Pt will picker packer Levaquin today. PSS please assist with scheduling. Bruna Mcmanus LPN [facility] 01-04-[address] scan shows worsening inflammation in the right upper lung but it does not have the classic look of a drug-induced pneumonitis. May be a pneumonia so I would like her to take Levaquin. Rx sent. Continue to hold Herceptin, Tukysa and capecitabine for now. Please pend order for echocardiogram to be done at [facility], Dr. Galeano to read. Would like that done as soon as able. Let's check in with her early next week regarding her symptoms of cough and getting short of breath when lying down. Rip Rivers DO [facility] 01-04-2024 History of Presen t illness Narrative [...] PATIENT PRESENTS WITH AN IMPLANTABLE OR ATTACHED LAMP REPLACER: No RADIOLOGY DEPARTMENT: General X-ray: Exam(s) Completed: Chest X-Ray PERIPHERAL IV DATA: Not applicable SIGNED BY: RT Jamar(R) January 04, 2024 11:16 AM documented in this encounter [facility] 01-04-2024 History of Presen t illness Narrative Oncologic problem(s): 1) Metastatic recurrence of ER positive, ND negative, HER2 positive breast cancer. 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 HPI: The patient is a 67 year old female who discovered a lump on the lower inner portion of her right breast in the fall of 2015. She was seen at [facility] and underwent a right sided core biopsy on 02/16/2016 by interventional radiology. The tissue specimen demonstrated invasive ductal carcinoma, Yohan grade 2. ER positive (90%, very weak) and ND negative (0%). HER-2 was quantified at 3+. [...] positive, >90% Ki-67 (30-9) positive, 12% CK8 (64mmwqH06) positive CK5-6 (D5 & 1684) negative Calponin-1 (MH827U) negative P40 (BC28) negative E-Cad (ECH-6) positive MORPHOMETRIC ANALYSIS ER (clone 6F11) 15%, weak intensity ND (clone 16/1E2) 0% Her-2Neu (clone CB11) 3+ Block B Calponin-1 (OG929C) negative P40 (BC28) negative CK8 (28qvluT32) positive INTERPRETATION: A. Right breast 1 o clock, biopsy: Invasive ductal carcinoma, grade 3/3. Positive for estrogen receptors (favorable prognostic indicator). Negative for progesterone receptors (unfavorable prognostic indicator). Positive for overexpression of LOL7wzi. B. Right breast 2 o clock, biopsy: [...] ductal carcinoma (no special type) Histologic Grade ([place] grade): Glandular/tubular differentiation - score 3 Nuclear [...] - previously performed on section of tumor ([id number] / [id number]). ER - positive (15%, weak intensity) ND - negative (0%) Her2 krista - positive (3+) Microcalcifications - present in both invasive carcinoma and non-neoplastic tissue. Clinical history - Please make reference to previous specimen ([id number]) right breast at 1 o clock and [...] pN0(sln) MX ER positive (9%, very weak) ND negative HER overexpressed stage IIA invasive ductal carcinoma the right breast. -Recurrent pT2(m) pN0 (none of 5 LNs) MX ER +(15%, weak intensity)/ND negative (0%) HER2 3+ invasive ductal carcinoma [...] which included preparing to see the patient, [id number] patient care, completing clinical documentation, obtaining and/or reviewing separately obtained history, performing a medically appropriate examination, counseling and educating the patient/family/caregiver, ordering medications, tests, or procedures, communicating with other HCPs (not separately reported), and communicating results to the patient/family/caregiver. Rip Rivers DO documented in this encounter [facility] 12-30-2023 History of Presen t illness Narrative [...] laboratory parameters, disease state markers and outcomes. Funeral Counselor Assessment Patient confirmed: Yes Med/dose confirmed: Yes Supplies needed: No supplies needed Missed doses: No Estimated days supply on hand: 0 Next cycle/dose due: 01/06/24 Copay amount: 0 Copay form of payment: (N/A) Payment confirmed: Yes Delivery method: FedEx Signature required: No Delivery address: [address] [place] [address] Delivery date: 01/03/24 (Pt not expecting changes [...] 0.9 % (flush) 10 mL (BD POSIFLUSH) [facility] CLINICAL ASSESSMENT - HEMATOLOGY ONCOLOGY V6: Assessment to use: Refill Date of influenza vaccination reminder: 10/13/2023 Date of most recent vaccination assessment: 10/13/2023 Treatment Plan Information: Diagnosis: metastatic recurrence of ER+. ND-, Her2+ breast cancer Previous treatment(s): - Right [...] hx of coronary artery disease), GI toxicity, yvdn-ras-iifn syndrome (onset ~79 days), hepatotoxicity (onset ~64 [...] toxicity Ruth Mejia documented in this encounter [facility] 12-22-2023 History of Presen t illness Narrative [...] PATIENT PRESENTS WITH AN IMPLANTABLE OR ATTACHED LAMP REPLACER: No ALLERGIES: Reviewed and unchanged CONTRAST ALLERGY: [...] N/A PERIPHERAL IV DATA: iv started in [facility] RADIOLOGY DEPARTMENT: CT; Exam(s) Completed: Chest Abdomen Pelvis SIGNATURE: RT Ashley(R) PATIENT NAME: Renate Christiansen DATE: December 22, 2023 TIME: 12:46 PM documented in this encounter [facility] 12-22-2023 Telephone encounter Note Spoke with patient and she will be in at 10 for hydration. Alexia Stephens [facility] 12-22-2023 Miscellaneous Notes Spoke with patient and [...] Chrissie Elliott LPN documented in this encounter [facility] 12-21-2023 Telephone encounter Note Please let patient know she can come in at 10 for her hydration prior to CT @ 11:20. Please schedule on 1st floor as 2nd floor already has appointments then. [facility] 12-21-2023 Telephone encounter Note Chemo nurse (2nd floor), please advise of time for hydration. [facility] Work Phone: 12-21-2023 Telephone encounter Note There has been increase in her serum creatinine very recently and looks like she has been having diarrhea. Could be from either Tukysa or capecitabine or both. I would definitely hydrate prior to CT scans. Rip Rivers DO [facility] 12-21-2023 Telephone encounter Note Pt. Scheduled for CT scan tomorrow. 12/14 Cr 1.6 GFR 35 Tech questioning hydration prior to CT? Or do you want her redrawn tomorrow? Chrissie Elliott LPN [facility] 12-15-2023 History of Presen t illness Narrative Assessment unchanged from 12/14/23 office visit with Mary Cote CNP. CR today 1.6. Zometa held and to recheck on and give on 01/05/24 after repeat CMP documented in this encounter [facility] 12-15-2023 Telephone encounter Note Information given to patient verbalizing understandin [facility] 12-15-2023 Miscellaneous Notes Information given to patient verbalizing understandin Message left for patient to contact office. Jazlyn Harding LPN Please inform pt. that her potassium is normal. Advise pt. that she needs to drink more water-her creat. bumped up some. Thank you. Caity Cote APRN.[employer] documented in this encounter [facility] 12-14-2023 Telephone encounter Note Message left for patient to contact office. Jazlyn Harding LPN [facility] 12-14-2023 Telephone encounter Note Please inform pt. that her potassium is normal. Advise pt. that she needs to drink more water-her creat. bumped up some. Thank you. Caity Cote APRN.[employer] [facility] 12-14-2023 History of Presen t illness Narrative Chief Complaint Patient presents with: Established Patient HPI: Renate Christiansen is a 68 year old female who presents here today for evaluation for treatment tomorrow. Per Dr. Rivers's previous note: H/o discovered a lump on the lower inner portion of her right breast in the fall of 2015. She was seen at [facility] and underwent a right sided core biopsy on 02/16/2016 by interventional radiology. The tissue specimen demonstrated invasive ductal carcinoma, [place] grade 2. ER positive (90%, very weak) and ND negative (0%). HER-2 was quantified at 3+. [...] positive, >90% Ki-67 (30-9) positive, 12% CK8 (75ykisF01) positive CK5-6 (D5 & 1684) negative Calponin-1 (VV408H) negative P40 (BC28) negative E-Cad (ECH-6) positive MORPHOMETRIC ANALYSIS ER (clone 6F11) 15%, weak intensity ND (clone 16/1E2) 0% Her-2Neu (clone CB11) 3+ Block B Calponin-1 (EQ482S) negative P40 (BC28) negative CK8 (47kbsjI63) positive INTERPRETATION: A. Right breast 1 o clock, biopsy: Invasive ductal carcinoma, grade 3/3. Positive for estrogen receptors (favorable prognostic indicator). Negative for progesterone receptors (unfavorable prognostic indicator). Positive for overexpression of NRY4lts. B. Right breast 2 o clock, biopsy: [...] - previously performed on section of tumor ([id number] / [id number]). ER - positive (15%, weak intensity) ND - negative (0%) Her2 krista - positive (3+) Microcalcifications - present in both invasive carcinoma and non-neoplastic tissue. Clinical history - Please make reference to previous specimen ([id number]) right breast at 1 o clock and [...] k/uL 0.87 (L) 0.86 (L) 0.75 (L) Blount% % 10.6 10.3 11.8 Abs Blount <0.87 k/uL 0.38 0.36 0.57 Eosin% % [...] pN0(sln) MX ER positive (9%, very weak) ND negative HER overexpressed stage IIA invasive ductal carcinoma the right breast. -Recurrent pT2(m) pN0 (none of 5 LNs) MX ER +(15%, weak intensity)/ND negative (0%) HER2 3+ invasive ductal carcinoma [...] Caity Cote APRN.ALESSANDRO documented in this encounter [facility] 12-07-2023 History of Presen t illness Narrative [...] laboratory parameters, disease state markers and outcomes. Funeral Counselor Assessment Patient confirmed: Yes Med/dose confirmed: Yes Supplies needed: No supplies needed Missed doses: No Estimated days supply on hand: (Has doses for today and tomorrow.) Next cycle/dose due: 12/16/23 Copay amount: 0 Delivery method: FedEx Signature required: Waived on patient request Delivery address: [address] [facility] [address] Delivery date: 12/13/23 (Has appointmetn the rest [...] 0.9 % (flush) 10 mL (BD POSIFLUSH) [facility] Visit Assessment - Hematology/Oncology: Assessment to use: Refill Vaccination Assessment: Date of influenza vaccination reminder: 10/13/2023 Date of most recent vaccination assessment: 10/13/2023 Treatment Plan Information: Treatment Plan Information: Diagnosis: metastatic recurrence of ER+. ND-, Her2+ breast cancer Previous treatment(s): - Right [...] hx of coronary artery disease), GI toxicity, rwst-uwg-zszb syndrome (onset ~79 days), hepatotoxicity (onset ~64 [...] toxicity Shanna Davis documented in this encounter [facility] 11-23-2023 History of Presen t illness Narrative Oncologic problem(s): 1) Metastatic recurrence of ER positive, ND negative, HER2 positive breast cancer. 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 HPI: The patient is a 67 year old female who discovered a lump on the lower inner portion of her right breast in the fall of 2015. She was seen at [facility] and underwent a right sided core biopsy on 02/16/2016 by interventional radiology. The tissue specimen demonstrated invasive ductal carcinoma, Yohan grade 2. ER positive (90%, very weak) and ND negative (0%). HER-2 was quantified at 3+. [...] positive, >90% Ki-67 (30-9) positive, 12% CK8 (70jqgyU35) positive CK5-6 (D5 & 1684) negative Calponin-1 (DN043S) negative P40 (BC28) negative E-Cad (ECH-6) positive MORPHOMETRIC ANALYSIS ER (clone 6F11) 15%, weak intensity ND (clone 16/1E2) 0% Her-2Neu (clone CB11) 3+ Block B Calponin-1 (CN077K) negative P40 (BC28) negative CK8 (89epcmV25) positive INTERPRETATION: A. Right breast 1 o clock, biopsy: Invasive ductal carcinoma, grade 3/3. Positive for estrogen receptors (favorable prognostic indicator). Negative for progesterone receptors (unfavorable prognostic indicator). Positive for overexpression of KTH0glj. B. Right breast 2 o clock, biopsy: [...] ductal carcinoma (no special type) Histologic Grade ([place] grade): Glandular/tubular differentiation - score 3 Nuclear [...] - previously performed on section of tumor ([id number] / [id number]). ER - positive (15%, weak intensity) ND - negative (0%) Her2 krista - positive (3+) Microcalcifications - present in both invasive carcinoma and non-neoplastic tissue. Clinical history - Please make reference to previous specimen ([id number]) right breast at 1 o clock and [...] Lymph 1.00 - 4.00 k/uL 0.86 (L) Blount% % 10.3 Abs Blount <0.87 k/uL 0.36 Eosin% % 10.0 Abs [...] pN0(sln) MX ER positive (9%, very weak) ND negative HER overexpressed stage IIA invasive ductal carcinoma the right breast. -Recurrent pT2(m) pN0 (none of 5 LNs) MX ER +(15%, weak intensity)/ND negative (0%) HER2 3+ invasive ductal carcinoma [...] which included preparing to see the patient, xbnu-gn-sgok patient care, completing clinical documentation, obtaining and/or reviewing separately obtained history, performing a medically appropriate examination, counseling and educating the patient/family/caregiver, ordering medications, tests, or procedures, communicating with other HCPs (not separately reported), and communicating results to the patient/family/caregiver. Rip Rivers DO documented in this encounter [facility] 11-15-2023 Telephone encounter Note Patient called to clarify if she should continue taking tukysa daily. Reviewed prescription instructions and informed patient tukysa is daily, capecitabine is 2 weeks on and 1 week off. Patient stated understanding of discussed information. Carla Almonte RN [facility] 11-15-2023 Miscellaneous Notes Patient called to clarify if she should continue taking tukysa daily. Reviewed prescription instructions and informed patient tukysa is daily, capecitabine is 2 weeks on and 1 week off. Patient stated understanding of discussed information. Carla Almonte RN Patient called with questions regarding how to take Tukysa. Please advise. documented in this encounter [facility] 11-15-2023 Telephone encounter Note Patient called with questions regarding how to take Tukysa. Please advise. [facility] Work Phone: 11-11-2023 Telephone encounter Note ORAL [...] if unable to comply. Carla Almonte RN [facility] 11-11-2023 Miscellaneous Notes ORAL ANTI-CANCER AGENTS FOLLOW-UP [...] Carla Almonte RN documented in this encounter [facility] 11-11-2023 Telephone encounter Note ORAL ANTI-CANCER AGENTS FOLLOW-UP PHONE CALL/VISIT Patient identified by name and date of . NO Patient is on cycle 1, week 2, day 8 of Capecitabine (Xeloda) and tucatinib for Breast Cancer. Called patient, no answer, left a VM requesting a call back from patient. Carla Almonte RN [facility] 11-09-2023 Telephone encounter Note This was sent to [facility] in [place] 11/01/2023: E-Prescribing Status: Receipt confirmed by pharmacy (11/01/2023 9:54 AM EDT) Jazlyn Harding LPN [facility] 11-09-2023 Miscellaneous Notes This was sent to [facility] in [place] 11/01/2023: E-Prescribing Status: Receipt confirmed by pharmacy (11/01/2023 9:54 AM EDT) Jazlyn Harding LPN documented in this encounter [facility] 11-03-2023 History of Presen t illness Narrative Assessment unchanged from 11/02/23 office visit with Mary Cote CNP documented in this encounter [facility] 11-02-2023 History of Presen t illness Narrative Chief Complaint Patient presents with: Established Patient HPI: Renate Christiansen is a 68 year old female who presents here today for evaluation for treatment tomorrow. Per Dr. Rivers's previous note: H/o discovered a lump on the lower inner portion of her right breast in the fall. She was seen at [facility] and underwent a right sided core biopsy on 02/16/2016 by interventional radiology. The tissue specimen demonstrated invasive ductal carcinoma, Yohan grade 2. ER positive (90%, very weak) and ND negative (0%). HER-2 was quantified at 3+. [...] positive, >90% Ki-67 (30-9) positive, 12% CK8 (20deqpX32) positive CK5-6 (D5 & 1684) negative Calponin-1 (OF917N) negative P40 (BC28) negative E-Cad (ECH-6) positive MORPHOMETRIC ANALYSIS ER (clone 6F11) 15%, weak intensity ND (clone 16/1E2) 0% Her-2Neu (clone CB11) 3+ Block B Calponin-1 (MW561V) negative P40 (BC28) negative CK8 (20ohokH69) positive INTERPRETATION: A. Right breast 1 o clock, biopsy: Invasive ductal carcinoma, grade 3/3. Positive for estrogen receptors (favorable prognostic indicator). Negative for progesterone receptors (unfavorable prognostic indicator). Positive for overexpression of RXO2bsi. B. Right breast 2 o clock, biopsy: [...] - previously performed on section of tumor ([id number] / [id number]). ER - positive (15%, weak intensity) ND - negative (0%) Her2 krista - positive (3+) Microcalcifications - present in both invasive carcinoma and non-neoplastic tissue. Clinical history - Please make reference to previous specimen ([id number]) right breast at 1 o clock and [...] 4.00 k/uL 1.15 0.45 (L) 0.75 (L) Blount% % 11.6 13.3 11.4 Abs Blount <0.87 k/uL 0.52 0.38 0.39 Eosin% % [...] pN0(sln) MX ER positive (9%, very weak) ND negative HER overexpressed stage IIA invasive ductal carcinoma the right breast. -Recurrent pT2(m) pN0 (none of 5 LNs) MX ER +(15%, weak intensity)/ND negative (0%) HER2 3+ invasive ductal carcinoma [...] as necessary for today's visit. Caity Cote APRN.[employer] documented in this encounter [facility] 11-02-2023 History of Presen t illness Narrative Patient is here for IVAD port flush/blood draw per [facility] [place] protocol. IVAD is located in right upper [...] tolerated procedure well. documented in this encounter [facility] 10-28-2023 History of Presen t illness Narrative [...] Meenu Garay MD documented in this encounter [facility] 10-14-2023 Telephone encounter Note Patient notified and verbalized understanding. Jazlyn Harding LPN [facility] 10-14-2023 Miscellaneous Notes Patient notified and verbalized [...] Jazlyn Harding LPN documented in this encounter [facility] 10-14-2023 Telephone encounter Note Yes, hold on starting until she is evaluated at next OV. [facility] 10-14-2023 Telephone encounter Note ORAL ANTI-CANCER AGENTS [...] topics as needed. Carla Almonte RN T [facility] 10-14-2023 Miscellaneous Notes ORAL ANTI-CANCER AGENTS EDUCATION [...] teaching topics as needed. Carla Almonte RN Patient had called back and stated she did not receive packet of information. Information was left for patient at check in desk on Tuesday and patient picked up at her OV. Message was left on patients VM stating this nurse will check in later in the month/closer to start date to review medications. Carla Amlonte RN ORAL ANTI-CANCER AGENTS EDUCATION Called and left a message requesting a call back to confirm that patient received oral chemo information. Carla Almonte RN documented in this encounter [facility] 10-14-2023 Telephone encounter Note [place] Care Coordination FOLLOW-UP NOTE Patient identified by name and date of . YES Spoke to patient Summary: (Reason for follow-up) Received Xeloda and Tukysa today. Patient stated she is supposed to start around 11/02 or 11/03? Please confirm. Thank you. Care Coordination Plan: Will follow up after speaking to Dr. Silvestre Almonte RN October 14, 2023 [facility] 10-14-2023 Telephone encounter Note Patient received it this morning. [facility] Work Phone: 10-14-2023 Telephone encounter Note Left patient a message to contact this nurse. Did patient receive Tukysa or when will she receive Tukysa? Jazlyn Harding LPN [facility] 10-11-2023 History of Presen t illness Narrative Oncologic problem(s): 1) Metastatic recurrence of ER positive, ND negative, HER2 positive breast cancer. 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 HPI: The patient is a 67 year old female who discovered a lump on the lower inner portion of her right breast in the fall of 2015. She was seen at [facility] and underwent a right sided core biopsy on 02/16/2016 by interventional radiology. The tissue specimen demonstrated invasive ductal carcinoma, Yohan grade 2. ER positive (90%, very weak) and ND negative (0%). HER-2 was quantified at 3+. [...] positive, >90% Ki-67 (30-9) positive, 12% CK8 (24vzhzN50) positive CK5-6 (D5 & 1684) negative Calponin-1 (ZP176W) negative P40 (BC28) negative E-Cad (ECH-6) positive MORPHOMETRIC ANALYSIS ER (clone 6F11) 15%, weak intensity ND (clone 16/1E2) 0% Her-2Neu (clone CB11) 3+ Block B Calponin-1 (IK507N) negative P40 (BC28) negative CK8 (50drmaG83) positive INTERPRETATION: A. Right breast 1 o clock, biopsy: Invasive ductal carcinoma, grade 3/3. Positive for estrogen receptors (favorable prognostic indicator). Negative for progesterone receptors (unfavorable prognostic indicator). Positive for overexpression of AXX5srb. B. Right breast 2 o clock, biopsy: [...] - previously performed on section of tumor ([id number] / [id number]). ER - positive (15%, weak intensity) ND - negative (0%) Her2 krista - positive (3+) Microcalcifications - present in both invasive carcinoma and non-neoplastic tissue. Clinical history - Please make reference to previous specimen ([id number]) right breast at 1 o clock and [...] pN0(sln) MX ER positive (9%, very weak) ND negative HER overexpressed stage IIA invasive ductal carcinoma the right breast. -Recurrent pT2(m) pN0 (none of 5 LNs) MX ER +(15%, weak intensity)/ND negative (0%) HER2 3+ invasive ductal carcinoma [...] which included preparing to see the patient, jgzg-gc-vhza patient care, completing clinical documentation, obtaining and/or reviewing separately obtained history, performing a medically appropriate examination, counseling and educating the patient/family/caregiver, ordering medications, tests, or procedures, communicating with other HCPs (not separately reported), and communicating results to the patient/family/caregiver. Rip Rivers DO documented in this encounter [facility] 09-30-2023 Nurse Note AMBULATORY PATIENT EDUCATION NOTE [...] Time spent on patient education: 10 minutes. [facility] 09-30-2023 Nurse Note AMBULATORY PATIENT EDUCATION NOTE [...] by Dr. Garay. Electronically Signed By: Mady eMdina, RN In Department: RADIATION ONCOLOGY Time spent on patient education: 10 minutes. documented in this encounter [facility] 09-30-2023 History of Presen t illness Narrative RENATE CHRISTIANSEN [id number] : 1955 09/30/2023 [facility] Department of Radiation Oncology RADIATION ONCOLOGY - [...] / 41:56 PM documented in this encounter [facility] 2023 Nurse Note Radiation Therapy - Nursing Note (OTV) PATIENT NAME: Renate Christiansen PATIENT 2023 [facility] FACILITY/LOCATION: [facility] NURSING NOTE TYPE: CHEST Subjective Data no complaints Additional Data Do you want to see a Advertising Analyst? No Status: Post-menopausal. Stress Scale: On a scale of 0 to 10, what number best describes how much distress you have experienced in the past week?(0 being no distress and 10 being extreme distress) 6 Social work notified: Pt denied need to see social worker clinical at this time. Nursing Assessment Fatigue: none [...] Cough: None. SIGNED by: Dee Douglas RN [facility] 2023 History of Presen t illness Narrative [...] Meenu Garay MD documented in this encounter [facility] 2023 Nurse Note Radiation Therapy - Nursing Note (OTV) PATIENT NAME: Renate Christiansen PATIENT 2023 [facility] FACILITY/LOCATION: [facility] NURSING NOTE TYPE: CHEST Subjective Data no complaints Additional Data Do you want to see a Advertising Analyst? No Status: Post-menopausal. Stress Scale: On a scale of 0 to 10, what number best describes how much distress you have experienced in the past week?(0 being no distress and 10 being extreme distress) 6 Social work notified: Pt denied need to see social worker clinical at this time. Nursing Assessment Fatigue: none [...] Dee Douglas RN documented in this encounter [facility] 09-23-2023 Telephone encounter Note Patient had called back and stated she did not receive packet of information. Information was left for patient at check in desk on Tuesday and patient picked up at her OV. Message was left on patients VM stating this nurse will check in later in the month/closer to start date to review medications. Carla Almonte RN [facility] 09-22-2023 History of Presen t illness Narrative No changes to assessment from OV yesterday. Lexie Hartley RN documented in this encounter [facility] 09-21-2023 History of Presen t illness Narrative Oncologic problem(s): 1) Metastatic recurrence of ER positive, ND negative, HER2 positive breast cancer. 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 HPI: The patient is a 67 year old female who discovered a lump on the lower inner portion of her right breast in the fall of 2015. She was seen at [facility] and underwent a right sided core biopsy on 02/16/2016 by interventional radiology. The tissue specimen demonstrated invasive ductal carcinoma, [place] grade 2. ER positive (90%, very weak) and ND negative (0%). HER-2 was quantified at 3+. [...] positive, >90% Ki-67 (30-9) positive, 12% CK8 (73hhfpQ07) positive CK5-6 (D5 & 1684) negative Calponin-1 (VA628C) negative P40 (BC28) negative E-Cad (ECH-6) positive MORPHOMETRIC ANALYSIS ER (clone 6F11) 15%, weak intensity ND (clone 16/1E2) 0% Her-2Neu (clone CB11) 3+ Block B Calponin-1 (DH878D) negative P40 (BC28) negative CK8 (45eobeK65) positive INTERPRETATION: A. Right breast 1 o clock, biopsy: Invasive ductal carcinoma, grade 3/3. Positive for estrogen receptors (favorable prognostic indicator). Negative for progesterone receptors (unfavorable prognostic indicator). Positive for overexpression of OVU7cbo. B. Right breast 2 o clock, biopsy: [...] - previously performed on section of tumor ([id number] / [id number]). ER - positive (15%, weak intensity) ND - negative (0%) Her2 krista - positive (3+) Microcalcifications - present in both invasive carcinoma and non-neoplastic tissue. Clinical history - Please make reference to previous specimen ([id number]) right breast at 1 o clock and [...] subcutaneous metastasis near xyphoid. LABS: Latest Ref [facility] 09/21/2023 WBC 3.70 - 11.00 k/uL [...] Abs Lymph 1.00 - 4.00 k/uL 1.15 Blount% % 11.6 Abs Blount <0.87 k/uL 0.52 Eosin% % 7.8 Abs [...] pN0(sln) MX ER positive (9%, very weak) ND negative HER overexpressed stage IIA invasive ductal carcinoma the right breast. -Recurrent pT2(m) pN0 (none of 5 LNs) MX ER +(15%, weak intensity)/ND negative (0%) HER2 3+ invasive ductal carcinoma [...] for hypercalcemia). -Due for echocardiogram--will order at [facility]. -Continue follow-up with Dr. Galeano. -Previously [...] Rip Rivers DO documented in this encounter [facility] 09-16-2023 Telephone encounter Note ORAL ANTI-CANCER AGENTS EDUCATION Called and left a message requesting a call back to confirm that patient received oral chemo information. Carla Almonte RN [facility] 09-15-2023 History of Presen t illness Narrative [...] PATIENT PRESENTS WITH AN IMPLANTABLE OR ATTACHED LAMP REPLACER: No RADIOLOGY DEPARTMENT: Ultrasound PERIPHERAL IV DATA: Not applicable SIGNED BY: Jazmin Jacobsen RDMS RVT September 15, 2023 1:44 PM documented in this encounter [facility] 09-13-2023 Nurse Note Radiation Therapy - Patient Education Note PATIENT NAME: Renate Christiansen PATIENT September 13, 2023 [facility] FACILITY[facility]LOCATION: [facility] READINESS TO LEARN Cognitive Ability: Alert and [...] need for social work, van service, and manager strategic sourcing. Patient has an Onbody or Implanted device: No Signed by: Dee Douglas RN documented in this encounter [facility] 09-13-2023 History of Presen t illness Narrative RENATE CHRISTIANSEN [id number] 09/13/2023 [facility] Department of Radiation Oncology [facility] RADIATION ONCOLOGY SIMULATION NOTE DATE OF SIMULATION: 09/13/2023 MACHINE: Relify Definition CT Simulator Diagnosis: Metastatic breast cancer with solitary progression of lung metastasis. AREA:Right Lung. PATIENT POSITION: Supine. CONTRAST: None PROTOCOL: None BLOCKING: Custom blocking to be determined at treatment planning. FIXATION DEVICE: In order to achieve accurate and reproducible treatments, the patient is to be immobilized with URX SBRT system, compression belt, and bodyfix. PROCEDURE: [...] M.D./hudson 41:57 PM documented in this encounter [facility] 09-13-2023 History of Presen t illness Narrative RENATE CHRISTIANSEN [id number] 09/13/2023 [facility] Department of Radiation Oncology Treatment Planning Note [...] M.D. 41:56 PM documented in this encounter [facility] 09-05-2023 Miscellaneous Notes CYCLE 1/DAY 1 POST [...] Chanelle Westfall RN documented in this encounter [facility] 08-30-2023 Miscellaneous Notes Patient informed and US [...] RUQ. Alexia Stephens documented in this encounter [facility] 08-30-2023 History of Presen t illness Narrative [facility] received prescription(s) for Capecitabine and Tukysa from Dr. Rivers's office. Benefits investigation was conducted, indicating that a prior authorization is not required at this time per patient's plan with Medicare B and [employer]. Prescriptions will now be processed through [facility] for determination of next steps. Shanna Davis documented in this encounter [facility] 08-30-2023 History of Presen t illness Narrative Diagnosis: 1) Metastatic recurrence of ER positive, ND negative, HER2 positive breast cancer. 2) Cardiomyopathy. HPI: The patient is a 67 year old female who discovered a lump on the lower inner portion of her right breast in the fall of 2015. She was seen at [facility] and underwent a right sided core biopsy on 02/16/2016 by interventional radiology. The tissue specimen demonstrated invasive ductal carcinoma, Yohan grade 2. ER positive (90%, very weak) and ND negative (0%). HER-2 was quantified at 3+. [...] positive, >90% Ki-67 (30-9) positive, 12% CK8 (89fmgmN98) positive CK5-6 (D5 & 1684) negative Calponin-1 (NW526M) negative P40 (BC28) negative E-Cad (ECH-6) positive MORPHOMETRIC ANALYSIS ER (clone 6F11) 15%, weak intensity ND (clone 16/1E2) 0% Her-2Neu (clone CB11) 3+ Block B Calponin-1 (NJ617B) negative P40 (BC28) negative CK8 (71cxyzT97) positive INTERPRETATION: A. Right breast 1 o clock, biopsy: Invasive ductal carcinoma, grade 3/3. Positive for estrogen receptors (favorable prognostic indicator). Negative for progesterone receptors (unfavorable prognostic indicator). Positive for overexpression of PJS1zdl. B. Right breast 2 o clock, biopsy: [...] ductal carcinoma (no special type) Histologic Grade ([place] grade): Glandular/tubular differentiation - score 3 Nuclear [...] - previously performed on section of tumor ([id number] / [id number]). ER - positive (15%, weak intensity) ND - negative (0%) Her2 krista - positive (3+) Microcalcifications - present in both invasive carcinoma and non-neoplastic tissue. Clinical history - Please make reference to previous specimen ([id number]) right breast at 1 o clock and [...] Abs Lymph 1.00 - 4.00 k/uL 1.02 Blount% % 14.2 Abs Blount <0.87 k/uL 0.42 Eosin% % 7.8 Abs [...] pN0(sln) MX ER positive (9%, very weak) ND negative HER overexpressed stage IIA invasive ductal carcinoma the right breast. -Recurrent pT2(m) pN0 (none of 5 LNs) MX ER +(15%, weak intensity)/ND negative (0%) HER2 3+ invasive ductal carcinoma [...] Rip Rivers DO documented in this encounter [facility] 08-30-2023 History of Presen t illness Narrative Patient is here for IVAD port flush/blood draw per [facility] [place] protocol. IVAD is located in right upper [...] tolerated procedure well. documented in this encounter [facility] 08-26-2023 Nurse Note Radiation Therapy - Nursing Note (Consult) PATIENT NAME: Renate Christiansen PATIENT August 26, 2023 [facility] FACILITY[facility]LOCATION: [facility] Chief Complaint: Lung mets Reason for visit: Consult. Referring physician: Internal provider Dr Rivers Subjective Data: no complaints Additional Data Do you want to see a Advertising Analyst? No Are you interested in information about fertility? No Status: Post-menopausal Stress Scale: On a scale of 0 to 10, what number best describes how much distress you have experienced in the past week?(0 being no distress and 10 being extreme distress) 7 Social work notified: Pt denied need to see social worker clinical at this time. SIGNED by: Dee Douglas RN documented in this encounter [facility] 08-26-2023 History of Presen t illness Narrative [...] Taxol/Herceptin. It's ER positive (9%, very weak), ND negative (0%) and Her2/krista 3+. She then [...] negative. It was ER positive (15%, weak), ND negative and Her2 3+. CT chest on [...] Demerol [Meperidine* Unknown Erythromycin Unknown Latex Rash [place] [Hydrocodone-* Hives Nubain [Nalbuphine * Unknown Paxlovid [...] that other personnel such as radiation therapists, television service engineer, and physicists will participate in planning and delivery of radiation treatment. Permanent tattoo amado will be placed to aid with positioning for daily treatment and the patient consented. Thank you very much for allowing us to participate in her care. Signed by: Meenu Garay MD cc: Williams Farrell [address] [place] [address] [place] [address] Rip Rivers [address] [facility] [address] documented in this encounter [facility] 08-25-2023 Miscellaneous Notes Spoke with patient and [...] Jazlyn Harding LPN documented in this encounter [facility] 08-22-2023 Note HNO ID: [id number] Author: ALBINA PRICE RT(R) Service: Nuclear Medicine [...] PATIENT PRESENTS WITH AN IMPLANTABLE OR ATTACHED LAMP REPLACER: No CREATININE: Creatinine Date Value Ref Range [...] 22, 2023 TIME: 9:22 AM PAGER/CONTACT #: [facility] 08-22-2023 History of Presen t illness [...] PATIENT PRESENTS WITH AN IMPLANTABLE OR ATTACHED LAMP REPLACER: No CREATININE: Creatinine Date Value Ref Range [...] 15 PATIENT DISCHARGED TO: Ambulatory patient, left [place] department area. A Diagnostic radioactive procedure has taken place, with no further precautions necessary other than routine body substance precautions. More information regarding radiation safety can be found using this link: [email or web address] SIGNATURE: RT Varun(R) PATIENT NAME: Renate Christiansen DATE: August 22, 2023 TIME: 9:22 AM PAGER/CONTACT #: documented in this encounter [facility] 08-17-2023 Discharge summary Note Date/Time August 16, 2023 10:31pm [facility] Medical Records Department [address] [facility] [place] [address] Emergency Department Summary 08/16/23 MR#: [id number] Acct: [id number] Name: RENATE CHRISTIANSEN Rep #:[id number] : 1955 67 From: Eze Mack [...] from that she thinks that is related. [facility] Medical History Breast cancer metastasized to bone [...] % rectal foam (Proctofoam HC) 1 applic ND QHS 1 week #10 grams 08/17/23 [Rx [...] Verified 08/16/23 21:50 skin rash hydrocodone [From [place]] Allergy hives and Verified 08/16/23 21:50 nausea [...] % (Auto) 65.5 Lymph % (Auto) 21.9 Blount % (Auto) 7.5 Eos % (Auto) 4.5 [...] Proctofoam HC 1-1 % foam 1 applic ND QHS 7 Days Qty: 10 0RF No [...] your Primary Care Provider. Call [facility] ([phone]) or report to the closest Emergency Room. Call 911 if necessary. 08/17/23 0051 <Electronically signed by Eze Mack MD> Cosigner Signature (if applicable): CC: Dr. Williams Farrell DO ~ Signed [facility] Work Phone: 1(279) 153-855003-07-2024 History of Present illness Narrative* Rosemary Romero RN - 08/11/2023 1:00 PM EST Assessment unchanged from 08/10/[address] Rivers documented [facility] History of Present illness Narrative* Meenu Garay [...] minutes Meenu Garay MD documented in this encounter[facility] History of Present illness Narrative* Rip Rivers DO - 08/10/2023 10:12 AM EST Diagnosis: 1) Metastatic recurrence of ER positive, ND negative, HER2 positive breast cancer. 2) Cardiomyopathy. HPI: The patient is a 67 year old female who discovered a lump on the lower inner portion of her right breast in the fall of 2015. She was seen at [facility] and underwent a right sided core biopsy on 02/16/2016 by interventional radiology. The tissue specimen demonstrated invasive ductal carcinoma, Yohan grade 2. ERpositive (90%, very weak) and ND negative (0%). HER-2 was quantified at 3+. [...] positive, >90% Ki-67 (30-9) positive, 12% CK8 (55efhkU48) positive CK5-6 (D5 & 1684) negative Calponin-1 (HC252E) negative P40 (BC28) negative E-Cad (ECH-6) positive MORPHOMETRIC ANALYSIS ER (clone 6F11) 15%, weak intensity ND (clone 16/1E2) 0% Her-2Neu (clone CB11) 3+ Block B Calponin-1 (GJ788K) negative P40 (BC28) negative CK8 (25elbmS44) positive INTERPRETATION: A. Right breast 1 o clock, biopsy: Invasive ductal carcinoma, grade 3/3. Positive for estrogen receptors (favorable prognostic indicator). Negative for progesterone receptors (unfavorable prognostic indicator). Positive for overexpression of SLY3nlb. B. Right breast 2 o clock, biopsy: [...] ductal carcinoma (no special type) Histologic Grade ([place] grade): Glandular/tubular differentiation - score 3 Nuclear [...] - previously performed on section of tumor ([id number] / [id number]). ER - positive (15%, weak intensity) ND - negative (0%) Her2 krista - positive (3+) Microcalcifications - present in both invasive carcinoma and non-neoplastic tissue. Clinical history - Please make reference to previous specimen ([id number]) right breast at 1 o clock and [...] pN0(sln) MX ER positive (9%, very weak) ND negative HER overexpressed stage IIA invasive ductal carcinoma the right breast. -Recurrent pT2(m) pN0 (none of 5 LNs) MX ER +(15%, weak intensity)/ND negative (0%) HER2 3+ invasive ductal carcinoma [...] necessary. Rip Rivers DO documented in this encounter[facility] History of Present illness Narrative* Adriana Thomas [...] PATIENT PRESENTS WITH AN IMPLANTABLE OR ATTACHED LAMP REPLACER: No RADIOLOGY DEPARTMENT: CT; Exam(s) Completed: Chest PERIPHERAL IV DATA: Not applicable SIGNED BY: RT Ashley(R) August 03, 2023 3:30 PM documented in this encounterSum[facility]02-14-2024 History of Present illness Narrative* Caity Cote APRN.[employer] - 07/20/2023 10:42 AM EST Chief Complaint Patient presents with: Established Patient HPI: Renate Christiansen is a 67 year old female who presents here today for evaluation for treatment tomorrow. Per Dr. Rivers's previous note: H/o discovered a lump on the lower inner portion of her right breast in the fall of 2015. She was seen at [facility] and underwent a right sided core biopsy on 02/16/2016 by interventional radiology. The tissue specimen demonstrated invasive ductal carcinoma, Yohan grade 2. ERpositive (90%, very weak) and ND negative (0%). HER-2 was quantified at 3+. [...] positive, >90% Ki-67 (30-9) positive, 12% CK8 (61zfrbA36) positive CK5-6 (D5 & 1684) negative Calponin-1 (KN808W) negative P40 (BC28) negative E-Cad (ECH-6) positive MORPHOMETRIC ANALYSIS ER (clone 6F11) 15%, weak intensity ND (clone 16/1E2) 0% Her-2Neu (clone CB11) 3+ Block B Calponin-1 (CM443Z) negative P40 (BC28) negative CK8 (04yhfrB54) positive INTERPRETATION: A. Right breast 1 o clock, biopsy: Invasive ductal carcinoma, grade 3/3. Positive for estrogen receptors (favorable prognostic indicator). Negative for progesterone receptors (unfavorable prognostic indicator). Positive for overexpression of MQR6hpk. B. Right breast 2 o clock, biopsy: [...] ductal carcinoma (no special type) Histologic Grade ([place] grade): Glandular/tubular differentiation - score 3 Nuclear [...] - previously performed on section of tumor ([id number] / [id number]). ER - positive (15%, weak intensity) ND - negative (0%) Her2 krista - positive (3+) Microcalcifications - present in both invasive carcinoma and non-neoplastic tissue. Clinical history - Please make reference to previous specimen ([id number]) right breast at 1 o clock and [...] 4.00 k/uL 0.98 (L) 0.85 (L) 1.06 Blount% % 15.5 13.1 9.6 Abs Blount <0.87 k/uL 0.55 0.39 0.40 Eosin% % [...] visit. Caity Cote APRN.ALESSANDRO documented in this encounterSum[facility]01-[facility]24 History of Present illness Narrative* Williams Childers Bud, - 06/16/2023 9:40 AM EST Subjective Patient ID: Renate Christiansen is a 67 y.o. 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 HPI Patient is [place] 67 y.o. [...] mg tablet Metastatic breast cancer, ER positive, ND negative, HER2 positive - she is on Enhertu now - following with oncology at [facility] - on zometa 2. HTN, Cardiomyopathy 2/2 [...] hypertension [I51.9] Heart disease documented in this [facility] Work Phone: 1(186) 631-246911-22-2023 History of Present illness Narrative* Nicolle Funez RN - 04/27/2023 9:36 AM EST . documented in this encounterSum[facility]11-[facility]23 History of Present illness Narrative* Rip Rivers DO - 04/26/2023 10:00 AM EST Diagnosis: 1) Metastatic recurrence of ER positive, ND negative, HER2 positive breast cancer. 2) Cardiomyopathy. HPI: The patient is a 67 year old female who discovered a lump on the lower inner portion of her right breast in the fall of 2015. She was seen at [facility] and underwent a right sided core biopsy on 02/16/2016 by interventional radiology. The tissue specimen demonstrated invasive ductal carcinoma, Yohan grade 2. ERpositive (90%, very weak) and ND negative (0%). HER-2 was quantified at 3+. [...] positive, >90% Ki-67 (30-9) positive, 12% CK8 (65ecwlN60) positive CK5-6 (D5 & 1684) negative Calponin-1 (CM419C) negative P40 (BC28) negative E-Cad (ECH-6) positive MORPHOMETRIC ANALYSIS ER (clone 6F11) 15%, weak intensity ND (clone 16/1E2) 0% Her-2Neu (clone CB11) 3+ Block B Calponin-1 (ZV420E) negative P40 (BC28) negative CK8 (68xgbqF97) positive INTERPRETATION: A. Right breast 1 o clock, biopsy: Invasive ductal carcinoma, grade 3/3. Positive for estrogen receptors (favorable prognostic indicator). Negative for progesterone receptors (unfavorable prognostic indicator). Positive for overexpression of APW3vuz. B. Right breast 2 o clock, biopsy: [...] ductal carcinoma (no special type) Histologic Grade ([place] grade): Glandular/tubular differentiation - score 3 Nuclear [...] - previously performed on section of tumor ([id number] / [id number]). ER - positive (15%, weak intensity) ND - negative (0%) Her2 krista - positive (3+) Microcalcifications - present in both invasive carcinoma and non-neoplastic tissue. Clinical history - Please make reference to previous specimen ([id number]) right breast at 1 o clock and [...] Abs Lymph 1.00 - 4.00 k/uL 1.17 Blount% % 11.6 Abs Blount <0.87 k/uL 0.51 Eosin% % 8.0 Abs [...] pN0(sln) MX ER positive (9%, very weak) ND negative HER overexpressed stage IIA invasive ductal carcinoma the right breast. -Recurrent pT2(m) pN0 (none of 5 LNs) MX ER +(15%, weak intensity)/ND negative (0%) HER2 3+ invasive ductal carcinoma [...] which included preparing to see the patient, eyzm-eh-ndcz patient care, completing clinical documentation, obtaining and/or reviewing separately obtained history, performing a medically appropriate examination, counseling and educating the pat ient/family/caregiver, ordering medications, tests, or procedures, communicating with other HCPs (not separately reported), and communicating results to the patient/family/caregiver Rip Rivers DO documented in this encounterSum[facility]11-21-[facility]23 History of Present illness Narrative* Nicolle Funez RN - 04/26/2023 7:19 AM EST Patient is here for IVAD port flush/blood draw per [facility] [place] protocol. IVAD is located in left upper [...] Patient tolerated procedure well. documented in this encounterSumma Health [facility]11-20-2023 Miscellaneous Notes* Telephone Encounter - Chrissie Elliott [...] new order sent to her pharmacy([facility] [place]). She stated we do not need to call her back [facility]. Sonali Cast documented in this encounterSumma Health [facility]11-01-2023 History of Present illness Narrative* Caity Cote APRN.[employer] - 04/06/2023 8:36 AM EDT Chief Complaint Patient presents with: Established Patient HPI: Renate Christiansen is a 67 year old female who presents here today for evaluation for treatment tomorrow. Per Dr. Masci's previous note: H/o pt. discovered a lump on the lower inner portion of her right breast in the fall of 2015. She was seen at [facility] and underwent a right sided core biopsy on 02/16/2016 by interventional radiology. The tissue specimen demonstrated invasive ductal carcinoma, [place] grade 2. ERpositive (90%, very weak) and ND negative (0%). HER-2 was quantified at 3+. [...] positive, >90% Ki-67 (30-9) positive, 12% CK8 (39ibsdC28) positive CK5-6 (D5 & 1684) negative Calponin-1 (EC397K) negative P40 (BC28) negative E-Cad (ECH-6) positive MORPHOMETRIC ANALYSIS ER (clone 6F11) 15%, weak intensity ND (clone 16/1E2) 0% Her-2Neu (clone CB11) 3+ Block B Calponin-1 (NP287N) negative P40 (BC28) negative CK8 (51psnqX53) positive INTERPRETATION: A. Right breast 1 o clock, biopsy: Invasive ductal carcinoma, grade 3/3. Positive for estrogen receptors (favorable prognostic indicator). Negative for progesterone receptors (unfavorable prognostic indicator). Positive for overexpression of SSV6lxv. B. Right breast 2 o clock, biopsy: [...] ductal carcinoma (no special type) Histologic Grade ([place] grade): Glandular/tubular differentiation - score 3 Nuclear [...] - previously performed on section of tumor ([id number] / [id number]). ER - positive (15%, weak intensity) ND - negative (0%) Her2 krista - positive (3+) Microcalcifications - present in both invasive carcinoma and non-neoplastic tissue. Clinical history - Please make reference to previous specimen ([id number]) right breast at 1 o clock and [...] 1.00 - 4.00 k/uL 1.09 1.06 1.20 Blount% % 11.1 10.7 10.4 Abs Blount <0.87 k/uL 0.45 0.46 0.45 Eosin% % [...] ICD10: C78.00 Metastatic recurrence of ER positive, ND negative, HER2 positive breast cancer. Originally pT2 pN0(sln) MX ER positive (9%, very weak) ND negative HER overexpressed stage IIA invasive ductal [...] visit. Caity Cote APRN.ALESSANDRO documented in this encounterSumma Health [facility]10-25-2023 Miscellaneous Notes* Telephone Encounter - Tiffany Hager - 03/30/2023 3:06 PM EDT Scheduled with patient * Telephone Encounter - Alexia Stephens - 03/30/2023 2:46 PM EDT Per CC Chart, patient needs CT Chest and a follow up call in 2 mos. LM for patient to return call. Alexia Stephens documented in this encounterSumma Health Barberton Campus10-25-2023 History of Present illness Narrative* Meenu Garay [...] minutes Meenu Garay MD documented in this encounterSumma Health Barberton Campus10-20-2023 Miscellaneous Notes* Telephone Encounter - Tiffany Hager - 03/25/2023 1:47 PM EDT Message relayed to patient * Telephone Encounter - Jazlyn Harding LPN - 03/25/2023 8:03 AM EDT Message left for patient to contact office. [employer] message also sent. Jazlyn Harding LPN * Telephone Encounter - Rip Rivers DO - 03/24/2023 5:37 PM EDT Can let her know ultrasound of the thyroid showed stable nodules. Radiologist recommended 1 year follow-up ultrasound. Rip Rivers DO documented in this encounterSumma Health Barberton Campus10-18-2023 History of Present illness Narrative* Doreen Capellan [...] 23, 2023 11:03 AM documented in this [facility]10-12-2023 History of Present illness Narrative* Rosemary Romero RN - 03/17/2023 1:23 PM EDT Assessment unchanged from 03/16/[address] Rivers documented in this [facility]10-11-2023 History of Present illness Narrative* Nicolle Funez RN - 03/16/2023 7:28 AM EDT Patient is here for IVAD port flush/blood draw per Nursing [place] protocol. IVAD is located in left upper [...] Patient tolerated procedure well. documented in this [facility]10-06-2023 History of Present illness Narrative* Ruth [...] 11, 2023 11:38 AM documented in this encounterSumma Health Barber[facility] Campus09-20-2023 History of Present illness Narrative* Meenu Garay [...] planned. Meenu Garay MD documented in this encounterSumma Health Barberton Campus09-20-2023 Nurse Note* Dee Douglas RN - 02/23/2023 10:38 AM EDT Radiation Therapy - Nursing Note (OTV) PATIENT NAME: Renate Christiansen PATIENT February 23, 2023 [facility] FACILITY/LOCATION: [facility] NOTE TYPE: BREAST- metastatic Subjective Data no complants Additional Data Do you want to see a Advertising Analyst? No Status: Post-menopausal. Stress Scale: On a scale of 0 to 10, what number best describes how much distress you have experienced in the past week?(0 being no distress and 10 being extreme distress) 5 Social work notified: Pt denied need to see social worker clinical at this time. Nursing Assessment Fatigue: increased [...] by: Dee Douglas RN documented in this encounterSumma Health Barberton Campus09-20-2023 History of Present illness Narrative* Rip Rivers DO - 02/23/2023 10:02 AM EDT Diagnosis: 1) Metastatic recurrence of ER positive, ND negative, HER2 positive breast cancer. 2) Cardiomyopathy. HPI: The patient is a 67 year old female who discovered a lump on the lower inner portion of her right breast in the fall of 2015. She was seen at [facility] and underwent a right sided core biopsy on 02/16/2016 by interventional radiology. The tissue specimen demonstrated invasive ductal carcinoma, [place] grade 2. ERpositive (90%, very weak) and ND negative (0%). HER-2 was quantified at 3+. [...] positive, >90% Ki-67 (30-9) positive, 12% CK8 (12liuiO52) positive CK5-6 (D5 & 1684) negative Calponin-1 (ZE704Y) negative P40 (BC28) negative E-Cad (ECH-6) positive MORPHOMETRIC ANALYSIS ER (clone 6F11) 15%, weak intensity ND (clone 16/1E2) 0% Her-2Neu (clone CB11) 3+ Block B Calponin-1 (ER279W) negative P40 (BC28) negative CK8 (43ztobX11) positive INTERPRETATION: A. Right breast 1 o clock, biopsy: Invasive ductal carcinoma, grade 3/3. Positive for estrogen receptors (favorable prognostic indicator). Negative for progesterone receptors (unfavorable prognostic indicator). Positive for overexpression of DEO4sjx. B. Right breast 2 o clock, biopsy: [...] - previously performed on section of tumor ([id number] / CT32-4426). ER - positive (15%, weak intensity) ND - negative (0%) Her2 krista - positive (3+) Microcalcifications - present in both invasive carcinoma and non-neoplastic tissue. Clinical history - Please make reference to previous specimen ([id number]) right breast at 1 o clock and [...] pN0(sln) MX ER positive (9%, very weak) ND negative HER overexpressed stage IIA invasive ductal carcinoma the right breast. -Recurrent pT2(m) pN0 (none of 5 LNs) MX ER +(15%, weak intensity)/ND negative (0%) HER2 3+ invasive ductal carcinoma [...] -She had her echocardiogram at [facility] but report not yet rendered. Plan: [...] which included preparing to see the patient, [id number] patient care, completing clinical documentation, obtaining and/or reviewing separately obtained history, performing a medically appropriate examination, counseling and educating the pat ient/family/caregiver, ordering medications, tests, or procedures, communicating with other HCPs (not separately reported), and communicating results to the patient/family/caregiver. Rip Rivers DO documented in this encounterSumma Health Barberton Campus09-14-2023 Discharge summary Author aMlika Garay [facility] February 17, 2023 1:45pm Note Date/Time February 17, 2023 1:33pm [facility] Medical Records Department [address] [place] [address] Discharge Summary 02/17/23 1320 MR#: [id number] Acct: [id number] Name: RENATE CHRISTIANSEN Rep #:[id number] : 1955 67 From: Malika Garay DO PCP: Dr. Mitch Mejia MD Status:ADM KELLIE Location: [place] [address] Providers Date of Admission: 02/16/23 Date of [...] who presents emergency department at [facility] on 02/17/2023 with a chief complaint [...] % (Auto) Cancelled, Lymph % (Auto) Cancelled, Blount % (Auto) Cancelled, Eos % (Auto) Cancelled, [...] Tear DropCells Cancelled, Ovalocytes Cancelled, Stomatocytes Cancelled, [place] Bodies Cancelled, Tonya Cells Cancelled, Bite Cells [...] Neut % (Auto) 58.7, Lymph % (Auto) 24.5,Blount % (Auto) 10.8 H, Eos % (Auto) [...] Self Care Charges/Coding Visit Charges Inpatient E&M: 13923 Disch Hosp 02/17/23 1345 <Electronically signed by Maliak Garay DO> Cosigner Signature (if applicable): CC: Dr. Mitch Mejia MD; Dr. Malika Garay DO~ Signed [facility] Work Phone: 1(546) 770-789109-14-2023 History and physical note Author Luis alexa [facility] February 17, 2023 9:42am Note Date/Time February 16, 2023 11:30pm [facility] Medical Records Department [address] [place] [address] H&P Exam - Hospitalist 02/16/23 2330 MR#: [id number] Acct: [id number] Name: RENATE CHRISTIANSEN Rep #:[id number] : 1955 67 From: Luis Stratton MD PCP: Dr. Mitch Mejia MD Status:ADM KELLIE Location: [place] [address] HPI - General General Date of Admission: [...] been on hold since January 13, 2023. [facility] Medical History Breast cancer metastasized to bone [...] Verified 11/26/22 11:36 skin rash hydrocodone [From [place]] Allergy hives and Verified 11/26/22 11:36 nausea [...] % (Auto) Cancelled, Lymph % (Auto) Cancelled, Blount % (Auto) Cancelled, Eos % (Auto) Cancelled, [...] Drop Cells Cancelled, Ovalocytes Cancelled, Stomatocytes Cancelled, [place] Bodies Cancelled, [place] Cells Cancelled, Bite Cells Cancelled, Crenated Cell [...] Neut % (Auto) 58.7, Lymph % (Auto) 24.5,Blount % (Auto) 10.8 H, Eos % (Auto) [...] 22:49 EDT Reading Location ID and State: [facility] / [place] Tel , Service support , Assessment & [...] documentation, 55minutes. Charges/Coding Visit Charges Inpatient E&M: 99421 Init Hosp L3 02/17/23 0942 <Electronically signed by Luis Stratton MD> Cosigner Signature (if applicable): CC: Dr. Mitch Mejia MD; Dr. Luis Stratton MD~ Signed [facility] Work Phone: 1(880) 448-673209-14-2023 Discharge summary Author Gurvinder Dill [facility] February 17, 2023 12:01am Note Date/Time February 16, 2023 7:14pm [facility] Medical Records Department [address] [facility] [place] [address] Emergency Department Summary 02/16/23 MR#: [id number] Acct: [id number] Name: RENATE CHRISTIANSEN Rep #:[id number] : 1955 67 From: Gurvinder Dill [...] had no fever. She denies significant cough. [facility] Medical History (Updated 02/16/23 @ 23:23 by [...] Verified 11/26/22 11:36 skin rash hydrocodone [From [place]] Allergy hives and Verified 11/26/22 11:36 nausea [...] arrival IV line established. 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 EKG obtained showed a sinus rhythm with [...] try to go home and follow-up with [facility] because they have always accessed her port [...] Cancelled 58.7 Lymph % (Auto) Cancelled 24.5 Blount % (Auto) Cancelled 10.8 H Eos % [...] Drop Cells Cancelled Ovalocytes Cancelled Stomatocytes Cancelled [place] Bodies Cancelled [place] Cells Cancelled Bite Cells Cancelled Crenated Cell [...] (Auto) Neut % (Auto) Lymph % (Auto) Blount % (Auto) Eos % (Auto) Baso % [...] Target Cells Tear Drop Cells Ovalocytes Stomatocytes [place] Bodies [place] Cells Bite Cells Crenated Cell Acanthocytes (Spur) [...] Breast cancer metastasized to lung Disposition Disposition: [facility] What to do if you have Problems For any increased pain, shortness of breath, bleeding, nausea or vomiting, chestpain, or any unexpected problems, contact your Primary Care Provider. Call [facility] ([phone]) or report to the closest Emergency Room. Call 911 if necessary. 02/17/23 0001 <Electronically signed by Gurvinder Dill DO> Cosigner Signature (if applicable): CC: Dr. Mitch Mejia MD ~ Signed [facility] Work Phone: 1(770) 361-713809-13-2023 Discharge summary Author [facility] February 17, 2023 12:01am Note Date/Time February 16, 2023 7:14pm [facility] Medical Records Department [address] [place] [address] Emergency Department Summary 02/16/23 MR#: [id number] Acct: [id number] Name: RENATE CHRISTIANSEN Rep #:[id number] : 1955 67 From: Gurvinder Dill [...] had no fever. She denies significant cough. [facility] Medical History (Updated 02/16/23 @ 23:[address] Gurvinder Dlil, DO) Breast cancer metastasized to bone Breast [...] Verified 11/26/22 11:36 skin rash hydrocodone [From [place]] Allergy hives and Verified 11/26/22 11:36 nausea [...] arrival IV line established. 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 EKG obtained showed a sinus rhythm with [...] try to go home and follow-up with [facility] because they have always accessed her port [...] Cancelled 58.7 Lymph % (Auto) Cancelled 24.5 Blount % (Auto) Cancelled 10.8 H Eos % [...] Drop Cells Cancelled Ovalocytes Cancelled Stomatocytes Cancelled [place] Bodies Cancelled Tonya Cells Cancelled Bite Cells [...] (Auto) Neut % (Auto) Lymph % (Auto) Blount % (Auto) Eos % (Auto) Baso % [...] Target Cells Tear Drop Cells Ovalocytes Stomatocytes [place] Bodies Tonya Cells Bite Cells Crenated Cell [...] to lung Disposition Disposition: [facility] What to do if you have Problems For any increased pain, shortness of breath, bleeding, nausea or vomiting, chestpain, or any unexpected problems, contact your Primary Care Provider. Call [facility] ([phone]) or report to the closest Emergency Room. Call 911 if necessary. 02/17/23 0001 <Electronically signed by Gurvinder Dill DO> Cosigner Signature (if applicable): CC: Dr. Mitch Mejia MD ~ Signed [facility] Work Phone: [phone]) 488-956809-13-2023 Miscellaneous Notes* Telephone Encounter - Rip Rivers [...] to Nurse. Alexia Stephens documented in this encounterSumma Health Barberton Campus09-06-2023 Nurse Note* Mady Medina RN - 02/09/2023 2:28 PM EDT Radiation Therapy - Patient Education Note PATIENT NAME: Renate Christiansen PATIENT February 09, 2023 [facility] FACILITY/LOCATION: [place] READINESS TO LEARN Cognitive [...] Department phone list, Esophagus Packet, Fatigue, and [place] instructions, XRT sheet and Aquaphor handout. Referral (recommendation): None, Pt denied need for social work, van service, and manager strategic sourcing. Was approved? unknown Signed by: Mady Medina RN documented in this encounterSumma Health Barberton Campus09-06-2023 History of Present illness Narrative* Meenu Garay MD, MD - 02/09/2023 12:00 AM EDT RENATE CHRISTIANSEN [id number] 02/09/2023 [facility] Department of Radiation Oncology Treatment Planning Note [...] Garay M.D. 0:52 AM documented in this encounterSumma Health Barberton Campus09-06-2023 History of Present illness Narrative* Meenu Garay MD, MD - 02/09/2023 12:00 AM EDT RENATE CHRISTIANSEN [id number] 02/09/2023 [facility] Department of Radiation Oncology [facility] RADIATION ONCOLOGY SIMULATION NOTE DATE OF SIMULATION: 02/09/2023 MACHINE: Relify Definition CT Simulator Diagnosis: Metastatic breast cancer [...] Garay M.D./hudson 0:51 AM documented in this encounterSumma Health Barberton Campus08-31-2023 Nurse Note* Mady Medina RN - 02/03/2023 9:36 AM EDT Radiation Therapy - Nursing Note (Consult) PATIENT NAME: Renate Christiansen PATIENT February 03, 2023 [facility] FACILITY/LOCATION: [place] Chief Complaint: consult Reason for visit: Consult. Referring physician: Internal provider Dr Rivers Subjective Data: no complaints Additional Data Do you want to see a Advertising Analyst? No Are you interested in information about fertility? No Status: Post-menopausal Stress Scale: On a scale of 0 to 10, what number best describes how much distress you have experienced in the past week?(0 being no distress and 10 being extreme distress) 10 Social work notified: Pt denied need to see social worker clinical at this time. SIGNED by: Mady Medina RN documented in this encounterSumma Health Barberton Campus08-31-2023 History of Present illness Narrative* Meenu Garay [...] Taxol/Herceptin. It's ER positive (9%, very weak), ND negative (0%) and Her2/krista 3+. She then [...] negative. It was ER positive (15%, weak), ND negative and Her2 3+. CT chest on [...] Demerol [Meperidine* Unknown Erythromycin Unknown Latex Rash [place] [Hydrocodone-* Hives Nubain [Nalbuphine * Unknown Percocet [Oxycodone* Rash, Itching Prednisone Unknown per pt, this was given when had appendicitis and received multiple meds and she developed a rash and they had given her prednisone but at some point it was thought that it wasn't working and maybe itwas part of the problem. Jane Lew Other: See Comments Migraine headache Sulfa (Sulfonamide [...] that other personnel such as radiation therapists, television service engineer, and physicists will partici lora in planning and delivery of radiation treatment. Permanent tattoo amado will be placed to aid with positioning for daily treatment and the patient consented. Patient will have a simulation procedure next week. Thank you very much for allowing us to participate in her care. Signed by: Meenu Garay MD cc: Mitch Mejia MD [address] [place] [address] Rip Rivers [address] [facility] [address] documented in this encounterSumma Health Barberton Campus08-23-2023 History of Present illness Narrative* Adriana Thomas [...] PERIPHERAL IV DATA: power port accessed by Kypha SIGNED BY: RT Ashley(R) January 26, 2023 9:36 AM documented in this encounterSumma Health Barberton Campus08-09-2023 History of Present illness Narrative* Rip Rivers DO - 01/12/2023 10:25 AM EDT Diagnosis: 1) Metastatic recurrence of ER positive, ND negative, HER2 positive breast cancer. 2) Cardiomyopathy. HPI: The patient is a 67 year old female who discovered a lump on the lower inner portion of her right breast in the fall of 2015. She was seen at [facility] and underwent a right sided core biopsy on 02/16/2016 by interventional radiology. The tissue specimen demonstrated invasive ductal carcinoma, [place] grade 2. ERpositive (90%, very weak) and ND negative (0%). HER-2 was quantified at 3+. [...] positive, >90% Ki-67 (30-9) positive, 12% CK8 (47rntdS62) positive CK5-6 (D5 & 1684) negative Calponin-1 (OV360D) negative P40 (BC28) negative E-Cad (ECH-6) positive MORPHOMETRIC ANALYSIS ER (clone 6F11) 15%, weak intensity ND (clone 16/1E2) 0% Her-2Neu (clone CB11) 3+ Block B Calponin-1 (FL602Q) negative P40 (BC28) negative CK8 (72sdxoR07) positive INTERPRETATION: A. Right breast 1 o clock, biopsy: Invasive ductal carcinoma, grade 3/3. Positive for estrogen receptors (favorable prognostic indicator). Negative for progesterone receptors (unfavorable prognostic indicator). Positive for overexpression of WAW6ijs. B. Right breast 2 o clock, biopsy: [...] - previously performed on section of tumor ([id number] / KX10-7625). ER - positive (15%, weak intensity) ND - negative (0%) Her2 krista - positive (3+) Microcalcifications - present in both invasive carcinoma and non-neoplastic tissue. Clinical history - Please make reference to previous specimen ([id number]) right breast at 1 o clock and [...] CARDIOVASCULAR: Rhythm is regular. 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 ABDOMEN: The abdomen is nondistended. Extremities: No swelling or edema. SKIN: Continued resolution of subcutaneous metastasis near Xyvoid. NEUROLOGIC: president [employer]o [employer] II-XII are grossly intact. Absent patellar DTRs. [...] Lymph 1.00 - 4.00 k/uL 1.23 1.14 Blount% % 10.3 12.7 Abs Blount <0.87 k/uL 0.37 0.43 Eosin% % 7.8 [...] pN0(sln) MX ER positive (9%, very weak) ND negative HER overexpressed stage IIA invasive ductal carcinoma the right breast. -Recurrent pT2(m) pN0 (none of 5 LNs) MX ER +(15%, weak intensity)/ND negative (0%) HER2 3+ invasive ductal carcinoma [...] which included preparing to see the patient, vshc-qz-drxq patient care, completing clinical documentation, obtaining and/or reviewing separately obtained history, performing a medically appropriate examination, counseling and educating the pat ient/family/caregiver, ordering medications, tests, or procedures, communicating with other HCPs (not separately reported), and communicating results to the patient/family/caregiver. Rip Rivers DO documented in this encounterSumma Health Barberton Campus07-27-2023 Miscellaneous Notes* Telephone Encounter - Ranjana Burgos RN - 12/30/2022 12:22 PM EDT [facility] IRB: [id number] Real World Treatment Experience of Patients with Breast, Lung, or GI Canceror Multiple Myeloma Using Remote Symptom Monitoring Informed Consent signed on: November STUDY ID #: [id number] Patient has not reached their 12-week minimum survey participation time point as of December 30, 2022. The patient was called and stated they do not want to continue completing URSE1Z22 surveys. The patient knows to follow provider's treatment plan and to discontinue the OHNT2X04 surveys. Patient understands to call the office sooner if needed and has my contact information for any additional questions regarding the study. Ranjana Burgos RN 12:22 PM December 30, 2022 documented in this encounterSumma Health Barberton Campus07-19-2023 History of Past illness Narrative* Problem Noted Date Diagnosed Date Resolved Date Platelets decreased 12/22/2022 06/08/19 24 documented as of this encounter (statuses as of 07/20/2023) [address]19-2023 History of Past illness Narrative* Problem Noted Date Diagnosed Date Resolved Date Platelets decreased 12/22/2022 06/08/19 24 documented as of this encounter (statuses as of 07/20/2023) [address]19-2023 History of Past illness Narrative* Problem Noted Date Diagnosed Date Resolved Date Platelets decreased 12/22/2022 06/08/19 24 documented as of this encounter (statuses as of 07/21/2023) [address]19-2023 History of Past illness Narrative* Problem Noted Date Diagnosed Date Resolved Date Platelets decreased 12/22/2022 06/08/19 24 documented as of this encounter (statuses as of 08/04/2023) [address]19-2023 History of Past illness Narrative* Problem Noted Date Diagnosed Date Resolved Date Platelets decreased 12/22/2022 06/08/19 24 documented as of this encounter (statuses as of 08/04/2023) [address]19-2023 History of Past illness Narrative* Problem Noted Date Diagnosed Date Resolved Date Platelets decreased 12/22/2022 06/08/19 24 documented as of this encounter (statuses as of 08/10/2023) [address]19-2023 History of Past illness Narrative* Problem Noted Date Diagnosed Date Resolved Date Platelets decreased 12/22/2022 06/08/19 24 documented as of this encounter (statuses as of 08/10/2023) [address]19-2023 History of Past illness Narrative* Problem Noted Date Diagnosed Date Resolved Date Platelets decreased 12/22/2022 06/08/19 24 documented as of this encounter (statuses as of 08/10/2023) [address]19-2023 History of Past illness Narrative* Problem Noted Date Diagnosed Date Resolved Date Platelets decreased 12/22/2022 06/08/19 24 documented as of this encounter (statuses as of 08/11/2023) [address]19-2023 History of Past illness Narrative* Problem Noted Date Diagnosed Date Resolved Date Platelets decreased 12/22/2022 06/08/19 24 documented as of this encounter (statuses as of 08/23/2023) [address]19-2023 History of Past illness Narrative* Problem Noted Date Diagnosed Date Resolved Date Platelets decreased 12/22/2022 06/08/19 24 documented as of this encounter (statuses as of 08/23/2023) [address]19-2023 History of Past illness Narrative* Problem Noted Date Diagnosed Date Resolved Date Platelets decreased 12/22/2022 06/08/19 24 documented as of this encounter (statuses as of 08/25/2023) [address]19-2023 History of Past illness Narrative* Problem Noted Date Diagnosed Date Resolved Date Platelets decreased 12/22/2022 06/08/19 24 documented as of this encounter (statuses as of 08/26/2023) [address]19-2023 History of Past illness Narrative* Problem Noted Date Diagnosed Date Resolved Date Platelets decreased 12/22/2022 06/08/19 24 documented as of this encounter (statuses as of 08/30/2023) [facility] of Past illness Narrative* Problem Noted Date Diagnosed Date Resolved Date Platelets decreased 12/22/2022 06/08/19 24 documented as of this encounter (statuses as of 08/30/2023) [address]19-2023 History of Past illness Narrative* Problem Noted Date Diagnosed Date Resolved Date Platelets decreased 12/22/2022 06/08/19 24 documented as of this encounter (statuses as of 08/30/2023) [address]19-2023 History of Past illness Narrative* Problem Noted Date Diagnosed Date Resolved Date Platelets decreased 12/22/2022 06/08/19 24 documented as of this encounter (statuses as of 09/06/2023) [address]19-2023 History of Past illness Narrative* Problem Noted Date Diagnosed Date Resolved Date Platelets decreased 12/22/2022 06/08/19 24 documented as of this encounter (statuses as of 09/09/2023) [address]19-2023 History of Past illness Narrative* Problem Noted Date Diagnosed Date Resolved Date Platelets decreased 12/22/2022 06/08/19 24 documented as of this encounter (statuses as of 09/14/2023) [address]19-2023 History of Past illness Narrative* Problem Noted Date Diagnosed Date Resolved Date Platelets decreased 12/22/2022 06/08/19 24 documented as of this encounter (statuses as of 09/16/2023) [address]19-2023 History of Past illness Narrative* Problem Noted Date Diagnosed Date Resolved Date Platelets decreased 12/22/2022 06/08/19 24 documented as of this encounter (statuses as of 09/17/2023) [address]19-2023 History of Past illness Narrative* Problem Noted Date Diagnosed Date Resolved Date Platelets decreased 12/22/2022 06/08/19 24 documented as of this encounter (statuses as of 09/21/2023) [address]19-2023 History of Past illness Narrative* Problem Noted Date Diagnosed Date Resolved Date Platelets decreased 12/22/2022 06/08/19 24 documented as of this encounter (statuses as of 09/21/2023) [address]19-2023 History of Past illness Narrative* Problem Noted Date Diagnosed Date Resolved Date Platelets decreased 12/22/2022 06/08/19 24 documented as of this encounter (statuses as of 09/23/2023) [address]19-2023 History of Present illness Narrative* Rip Rivers, - 12/22/2022 10:46 AM EDT Diagnosis: 1) Metastatic recurrence of ER positive, ND negative, HER2 positive breast cancer. 2) Cardiomyopathy. HPI: The patient is a 67 year old female who discovered a lump on the lower inner portion of her right breast in the fall of 2015. She was seen at [facility] and underwent a right sided core biopsy on 02/16/2016 by interventional radiology. The tissue specimen demonstrated invasive ductal carcinoma, [place] grade 2. ERpositive (90%, very weak) and ND negative (0%). HER-2 was quantified at 3+. [...] positive, >90% Ki-67 (30-9) positive, 12% CK8 (90irmiR17) positive CK5-6 (D5 & 1684) negative Calponin-1 (GJ982A) negative P40 (BC28) negative E-Cad (ECH-6) positive MORPHOMETRIC ANALYSIS ER (clone 6F11) 15%, weak intensity ND (clone 16/1E2) 0% Her-2Neu (clone CB11) 3+ Block B Calponin-1 (XE347J) negative P40 (BC28) negative CK8 (01fldvA45) positive INTERPRETATION: A. Right breast 1 o clock, biopsy: Invasive ductal carcinoma, grade 3/3. Positive for estrogen receptors (favorable prognostic indicator). Negative for progesterone receptors (unfavorable prognostic indicator). Positive for overexpression of FFV5fdz. B. Right breast 2 o clock, biopsy: [...] - previously performed on section of tumor ([id number] / QP86-6067). ER - positive (15%, weak intensity) ND - negative (0%) Her2 krista - positive (3+) Microcalcifications - present in both invasive carcinoma and non-neoplastic tissue. Clinical history - Please make reference to previous specimen ([id number]) right breast at 1 o clock and [...] CARDIOVASCULAR: Rhythm is regular. 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 ABDOMEN: The abdomen is nondistended. Extremities: No swelling or edema. SKIN: Resolution of subcutaneous metastasis near Xyvoid. NEUROLOGIC: [employer] II-XII are grossly intact. Absent patellar DTRs. [...] 1.00 - 4.00 k/uL 1.17 1.30 1.23 Blount% % 12.5 10.4 10.3 Abs Blount <0.87 k/uL 0.46 0.43 0.37 Eosin% % [...] pN0(sln) MX ER positive (9%, very weak) ND negative HER overexpressed stage IIA invasive ductal carcinoma the right breast. -Recurrent pT2(m) pN0 (none of 5 LNs) MX ER +(15%, weak intensity)/ND negative (0%) HER2 3+ invasive ductal carcinoma [...] which included preparing to see the patient, eejf-kn-repo patient care, completing clinical documentation, obtaining and/or reviewing separately obtained history, performing a medically appropriate examination, counseling and educating the pat ient/family/caregiver, ordering medications, tests, or procedures, communicating with other HCPs (not separately reported), and communicating results to the patient/family/caregiver. Rip Rivers DO documented in this encounterSumma Health [facility]06-28-2023 History of Present illness Narrative* Rip Rivers DO - 12/01/2022 8:38 AM EDT Diagnosis: 1) Metastatic recurrence of ER positive, ND negative, HER2 positive breast cancer. 2) Cardiomyopathy. HPI: The patient is a 67 year old female who discovered a lump on the lower inner portion of her right breast in the fall of 2015. She was seen at [facility] and underwent a right sided core biopsy on 02/16/2016 by interventional radiology. The tissue specimen demonstrated invasive ductal carcinoma, Yohan grade 2. ERpositive (90%, very weak) and ND negative (0%). HER-2 was quantified at 3+. [...] positive, >90% Ki-67 (30-9) positive, 12% CK8 (65mvryK88) positive CK5-6 (D5 & 1684) negative Calponin-1 (ET774R) negative P40 (BC28) negative E-Cad (ECH-6) positive MORPHOMETRIC ANALYSIS ER (clone 6F11) 15%, weak intensity ND (clone 16/1E2) 0% Her-2Neu (clone CB11) 3+ Block B Calponin-1 (FM380P) negative P40 (BC28) negative CK8 (58qeixV30) positive INTERPRETATION: A. Right breast 1 o clock, biopsy: Invasive ductal carcinoma, grade 3/3. Positive for estrogen receptors (favorable prognostic indicator). Negative for progesterone receptors (unfavorable prognostic indicator). Positive for overexpression of ONS4ygt. B. Right breast 2 o clock, biopsy: [...] - previously performed on section of tumor ([id number] / [id number]). ER - positive (15%, weak intensity) ND - negative (0%) Her2 krista - positive (3+) Microcalcifications - present in both invasive carcinoma and non-neoplastic tissue. Clinical history - Please make reference to previous specimen ([id number]) right breast at 1 o clock and [...] CARDIOVASCULAR: Rhythm is regular. 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 ABDOMEN: The abdomen is nondistended. Extremities: No swelling or edema. SKIN: Resolution of subcutaneous metastasis near Xyvoid. NEUROLOGIC: [employer] II-XII are grossly intact. Absent patellar DTRs. [...] Abs Lymph 1.00 - 4.00 k/uL 1.30 Blount% % 10.4 Abs Blount <0.87 k/uL 0.43 Eosin% % 6.8 Abs [...] pN0(sln) MX ER positive (9%, very weak) ND negative HER overexpressed stage IIA invasive ductal carcinoma the right breast. -Recurrent pT2(m) pN0 (none of 5 LNs) MX ER +(15%, weak intensity)/ND negative (0%) HER2 3+ invasive ductal carcinoma [...] which included preparing to see the patient, efke-va-zkzc patient care, completing clinical documentation, obtaining and/or reviewing separately obtained history, performing a medically appropriate examination, counseling and educating the pat ient/family/caregiver, ordering medications, tests, or procedures, communicating with other HCPs (not separately reported), and communicating results to the patient/family/caregiver. Rip Rivers DO documented in this encounterSumma Health [facility]06-28-2023 History of Present illness Narrative* Ana Cristina Bejarano RN - 12/01/2022 7:51 AM EDT Patient is here for IVAD port flush/blood draw per [facility] [place] protocol. IVAD is located in left upper [...] Patient tolerated procedure well. documented in this encounterSumma Health Barber[facility]06-08-2023 History of Present illness Narrative* Ranjana Burgos [...] willingly signed by patient and approved study clinical team manager on November at 8:45 am . Patient [...] of age or older Yes Subject understands Syriac Yes Subject may be any stage and [...] following: Electronic Survey via subject's personal device [employer] Farmworker(s): Chance Espinoza MD [facility] [address] [place] [address], [place] [phone] [email or web address] Layboy Operator: Eileen Null Lead Pager: [email or web address] The patient knows to follow provider's treatment plan and to complete the baseline survey within 5-days of receipt. Weekly electronic surveys to be sent for minimum of 12 weeks. Patient understands to call the office sooner if needed and has my contact information for any additional questions regarding the study. Ranjana Burgos RN 9:39 AM November 11, 2022 documented in this encounterSumma Health Barber[facility] Campus06-07-2023 History of Present illness Narrative* Prince Blunt [...] 10, 2022 11:12 AM documented in this encounterSumma Health Barber[facility]06-07-2023 History of Present illness Narrative* Rip Rivers DO - 11/10/2022 10:24 AM EDT Diagnosis: 1) Metastatic recurrence of ER positive, ND negative, HER2 positive breast cancer. 2) Cardiomyopathy. HPI: The patient is a 67 year old female who discovered a lump on the lower inner portion of her right breast in the fall of 2015. She was seen at [facility] and underwent a right sided core biopsy on 02/16/2016 by interventional radiology. The tissue specimen demonstrated invasive ductal carcinoma, Yohan grade 2. ERpositive (90%, very weak) and ND negative (0%). HER-2 was quantified at 3+. [...] positive, >90% Ki-67 (30-9) positive, 12% CK8 (99igsdL47) positive CK5-6 (D5 & 1684) negative Calponin-1 (SB371T) negative P40 (BC28) negative E-Cad (ECH-6) positive MORPHOMETRIC ANALYSIS ER (clone 6F11) 15%, weak intensity ND (clone 16/1E2) 0% Her-2Neu (clone CB11) 3+ Block B Calponin-1 (PG504K) negative P40 (BC28) negative CK8 (97dmwbQ12) positive INTERPRETATION: A. Right breast 1 o clock, biopsy: Invasive ductal carcinoma, grade 3/3. Positive for estrogen receptors (favorable prognostic indicator). Negative for progesterone receptors (unfavorable prognostic indicator). Positive for overexpression of FWX4uth. B. Right breast 2 o clock, biopsy: [...] ductal carcinoma (no special type) Histologic Grade ([place] grade): Glandular/tubular differentiation - score 3 Nuclear [...] - previously performed on section of tumor ([id number] / [id number]). ER - positive (15%, weak intensity) ND - negative (0%) Her2 krista - positive (3+) Microcalcifications - present in both invasive carcinoma and non-neoplastic tissue. Clinical history - Please make reference to previous specimen ([id number]) right breast at 1 o clock and [...] CARDIOVASCULAR: Rhythm is regular. 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 ABDOMEN: The abdomen is nondistended. Extremities: No swelling or edema. SKIN: Resolution of subcutaneous metastasis near Xyvoid. NEUROLOGIC: [employer] II-XII are grossly intact. Absent patellar DTRs. [...] Abs Lymph 1.00 - 4.00 k/uL 1.17 Blount% % 12.5 Abs Blount <0.87 k/uL 0.46 Eosin% % 7.6 Abs [...] pN0(sln) MX ER positive (9%, very weak) ND negative HER overexpressed stage IIA invasive ductal carcinoma the right breast. -Recurrent pT2(m) pN0 (none of 5 LNs) MX ER +(15%, weak intensity)/ND negative (0%) HER2 3+ invasive ductal carcinoma [...] which included preparing to see the patient, fqiw-qs-kzho patient care, completing clinical documentation, obtaining and/or reviewing separately obtained history, performing a medically appropriate examination, counseling and educating the pat ient/family/caregiver, ordering medications, tests, or procedures, communicating with other HCPs (not separately reported), and communicating results to the patient/family/caregiver. Rip Rivers DO documented in this encounterSumma Health [facility]06-07-2023 History of Present illness Narrative* Ana Velásquez [...] well. Ana Velásquez RN documented in this [facility]06-06-2023 Miscellaneous Notes* Telephone Encounter - Chrissie Lama LPN - 11/09/2022 8:58 AM EDT Left detailed message on identified voicemail echo resulted as normal. Chrissie Lama LPN documented in this [facility]05-17-2023 History of Present illness Narrative* Rip Rivers DO - 10/20/2022 10:44 AM EDT Diagnosis: 1) Metastatic recurrence of ER positive, ND negative, HER2 positive breast cancer. 2) Cardiomyopathy. HPI: The patient is a 67 year old female who discovered a lump on the lower inner portion of her right breast in the fall of 2015. She was seen at [facility] and underwent a right sided core biopsy on 02/16/2016 by interventional radiology. The tissue specimen demonstrated invasive ductal carcinoma, Yohan grade 2. ERpositive (90%, very weak) and ND negative (0%). HER-2 was quantified at 3+. [...] positive, >90% Ki-67 (30-9) positive, 12% CK8 (18bhfoP28) positive CK5-6 (D5 & 1684) negative Calponin-1 (YE423T) negative P40 (BC28) negative E-Cad (ECH-6) positive MORPHOMETRIC ANALYSIS ER (clone 6F11) 15%, weak intensity ND (clone 16/1E2) 0% Her-2Neu (clone CB11) 3+ Block B Calponin-1 (QI669G) negative P40 (BC28) negative CK8 (97zhvyX71) positive INTERPRETATION: A. Right breast 1 o clock, biopsy: Invasive ductal carcinoma, grade 3/3. Positive for estrogen receptors (favorable prognostic indicator). Negative for progesterone receptors (unfavorable prognostic indicator). Positive for overexpression of GCA7uxr. B. Right breast 2 o clock, biopsy: [...] ductal carcinoma (no special type) Histologic Grade ([place] grade): Glandular/tubular differentiation - score 3 Nuclear [...] - previously performed on section of tumor ([id number] / [id number]). ER - positive (15%, weak intensity) ND - negative (0%) Her2 krista - positive (3+) Microcalcifications - present in both invasive carcinoma and non-neoplastic tissue. Clinical history - Please make reference to previous specimen ([id number]) right breast at 1 o clock and [...] (98.4 F), weight 86.2 kg (190 lb), ZeY364 %. Well-appearing and in no acute distress. EYES: Sclerae are anicteric bilaterally. LYMPHATIC: There is no palpable cervical, supraclavicular, axillary adenopathy. RESPIRATORY: Normal vesicular breath sounds in all barnes. No rales, wheezes or rhonchi. CARDIOVASCULAR: Rhythm is regular. 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 ABDOMEN: The abdomen is nondistended. Extremities: No swelling or edema. SKIN: Resolution of subcutaneous metastasis near Xyvoid. NEUROLOGIC: [employer] II-XII are grossly intact. Absent patellar DTRs. [...] Abs Lymph 1.00 - 4.00 k/uL 1.15 Blount% % 10.6 Abs Blount <0.87 k/uL 0.41 Eosin% % 6.5 Abs [...] pN0(sln) MX ER positive (9%, very weak) ND negative HER overexpressed stage IIA invasive ductal carcinoma the right breast. -Recurrent pT2(m) pN0 (none of 5 LNs) MX ER +(15%, weak intensity)/ND negative (0%) HER2 3+ invasive ductal carcinoma [...] read yet). -Due for echo--will order at [facility]. -Continue follow-up with Dr. Galeano. -Previously [...] which included preparing to see the patient, fixf-vg-uftr patient care, completing clinical documentation, obtaining and/or reviewing separately obtained history, performing a medically appropriate examination, counseling and educating the pat ient/family/caregiver, ordering medications, tests, or procedures, communicating with other HCPs (not separately reported), and communicating results to the patient/family/caregiver. Rip Rivers DO documented in this encounterSumma Health [facility]05-15-2023 History of Present illness Narrative* Adriana Thomas [...] PERIPHERAL IV DATA: power port accessed by [employer] SIGNED BY: RT Ashley(R) October 18, 2022 2:35 PM documented in this encounterSumma Health Barber[facility]04-26-2023 Miscellaneous Notes* Telephone Encounter - Jazlyn Harding [...] patient. Jazlyn Harding LPN documented in this encounterSumma Health [facility]04-19-2023 History of Present illness Narrative* Morena Doe [...] 22, 2022 3:11 PM documented in this encounterSumma Health Barber[facility]04-05-2023 History of Present illness Narrative* Rip Rivers DO - 09/08/2022 11:06 AM EDT Diagnosis: 1) Metastatic recurrence of ER positive, ND negative, HER2 positive breast cancer. 2) Cardiomyopathy. HPI: The patient is a 66 year old female who discovered a lump on the lower inner portion of her right breast in the fall of 2015. She was seen at [facility] and underwent a right sided core biopsy on 02/16/2016 by interventional radiology. The tissue specimen demonstrated invasive ductal carcinoma, Yohan grade 2. ERpositive (90%, very weak) and ND negative (0%). HER-2 was quantified at 3+. [...] positive, >90% Ki-67 (30-9) positive, 12% CK8 (78gtriQ01) positive CK5-6 (D5 & 1684) negative Calponin-1 (KU943H) negative P40 (BC28) negative E-Cad (ECH-6) positive MORPHOMETRIC ANALYSIS ER (clone 6F11) 15%, weak intensity ND (clone 16/1E2) 0% Her-2Neu (clone CB11) 3+ Block B Calponin-1 (KZ627B) negative P40 (BC28) negative CK8 (06joclN13) positive INTERPRETATION: A. Right breast 1 o clock, biopsy: Invasive ductal carcinoma, grade 3/3. Positive for estrogen receptors (favorable prognostic indicator). Negative for progesterone receptors (unfavorable prognostic indicator). Positive for overexpression of SUF9qly. B. Right breast 2 o clock, biopsy: [...] ductal carcinoma (no special type) Histologic Grade ([place] grade): Glandular/tubular differentiation - score 3 Nuclear [...] - previously performed on section of tumor ([id number] / [id number]). ER - positive (15%, weak intensity) ND - negative (0%) Her2 krista - positive (3+) Microcalcifications - present in both invasive carcinoma and non-neoplastic tissue. Clinical history - Please make reference to previous specimen ([id number]) right breast at 1 o clock and [...] CARDIOVASCULAR: Rhythm is regular. 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 Left breast--no mass appreciated. ABDOMEN: The abdomen is nondistended. Extremities: No swelling or edema. SKIN: Resolution of subcutaneous metastasis near Xyvoid. NEUROLOGIC: [employer] II-XII are grossly intact. Absent patellar DTRs. [...] Lymph 1.00 - 4.00 k/uL 1.22 1.24 Blount% % 13.4 12.9 Abs Blount <0.87 k/uL 0.50 0.54 Eosin% % 5.4 [...] pN0(sln) MX ER positive (9%, very weak) ND negative HER overexpressed stage IIA invasive ductal carcinoma the right breast. -Recurrent pT2(m) pN0 (none of 5 LNs) MX ER +(15%, weak intensity)/ND negative (0%) HER2 3+ invasive ductal carcinoma [...] which included preparing to see the patient, gnlp-sm-nazd patient care, completing clinical documentation, obtaining and/or reviewing separately obtained history, performing a medically appropriate examination, counseling and educating the pat ient/family/caregiver, ordering medications, tests, or procedures, and communicating results to thepatient/family/caregiver. Rip Rivers DO documented in this encounterSumma Health [facility]03-23-2023 Miscellaneous Notes* Telephone Encounter - Tiffany Hager - 08/26/2022 9:45 AM EDT Patient informed. * Telephone Encounter - Alexia Stephens - 08/26/2022 9:40 AM EDT LM for patient to return call to schedule. When patient calls, please transfer to Breast Center at [phone] to schedule diagnostic mammogram. Once transferred, please [...] schedule. Rip Rivers DO documented in this encounterSumma Health [facility]03-21-2023 Miscellaneous Notes* Letter - Mammography Coordinator - 08/24/2022 3:06 PM EDT August 25, 2022 PID: [id number] Renate Christiansen [address] [place] [address] Dear Ms. Christiansen, Your recent breast imaging [...] who ordered/prescribed your screening mammogram: Please call [phone] or [phone] to schedule an appointment for your additional [...] and reports are [facility] as part of your permanent medical record, and are available for your continuing care. Thank you for allowing us to help in meeting your health care needs. Sincerely, Dr. Pablo Interpreting Radiologist [facility] (Additional imaging) documented in this encounterSumma Health Barber[facility] Campus03-20-2023 History of Present illness Narrative* Annamaria Gonzales, [...] DATA: Not applicable SIGNED BY: Annamaria Gonzales [facility] August 23, 2022 1:56 PM documented in this encounterSumma Health Barber[facility]03-15-2023 History of Present illness Narrative* Rip Rivers, DO - 08/18/2022 10:47 AM EDT Diagnosis: 1) Metastatic recurrence of ER positive, ND negative, HER2 positive breast cancer. 2) Cardiomyopathy. HPI: The patient is a 66 year old female who discovered a lump on the lower inner portion of her right breast in the fall of 2015. She was seen at [facility] and underwent a right sided core biopsy on 02/16/2016 by interventional radiology. The tissue specimen demonstrated invasive ductal carcinoma, [place] grade 2. ERpositive (90%, very weak) and ND negative (0%). HER-2 was quantified at 3+. [...] positive, >90% Ki-67 (30-9) positive, 12% CK8 (30aljqF88) positive CK5-6 (D5 & 1684) negative Calponin-1 (QZ200U) negative P40 (BC28) negative E-Cad (ECH-6) positive MORPHOMETRIC ANALYSIS ER (clone 6F11) 15%, weak intensity ND (clone 16/1E2) 0% Her-2Neu (clone CB11) 3+ Block B Calponin-1 (MT973E) negative P40 (BC28) negative CK8 (47guszV44) positive INTERPRETATION: A. Right breast 1 o clock, biopsy: Invasive ductal carcinoma, grade 3/3. Positive for estrogen receptors (favorable prognostic indicator). Negative for progesterone receptors (unfavorable prognostic indicator). Positive for overexpression of BKW3haq. B. Right breast 2 o clock, biopsy: [...] - previously performed on section of tumor ([id number] / [id number]). ER - positive (15%, weak intensity) ND - negative (0%) Her2 krista - positive (3+) Microcalcifications - present in both invasive carcinoma and non-neoplastic tissue. Clinical history - Please make reference to previous specimen ([id number]) right breast at 1 o clock and [...] CARDIOVASCULAR: Rhythm is regular. 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 ABDOMEN: The abdomen is nondistended. Extremities: No swelling or edema. SKIN: Resolution of subcutaneous metastasis near Xyvoid. NEUROLOGIC: [employer] II-XII are grossly intact. Absent patellar DTRs. [...] 1.00 - 4.00 k/uL 1.55 1.18 1.22 Blount% % 10.3 10.2 13.4 Abs Blount <0.87 k/uL 0.45 0.37 0.50 Eosin% % [...] pN0(sln) MX ER positive (9%, very weak) ND negative HER overexpressed stage IIA invasive ductal carcinoma the right breast. -Recurrent pT2(m) pN0 (none of 5 LNs) MX ER +(15%, weak intensity)/ND negative (0%) HER2 3+ invasive ductal carcinoma [...] Reviewed most recent echocardiogram results done at [facility]--scanned. No change from previous. EF normal. [...] which included preparing to see the patient, rqpm-bb-ysar patient care, completing clinical documentation, obtaining and/or reviewing separately obtained history, performing a medically appropriate examination, ordering medications, tests, or procedures, and communicating results to the patient/family/caregiver. Rip Rivers DO documented in this encounterSumma Health [facility]02-24-2023 Miscellaneous Notes* Telephone Encounter - Alexia Stephens [...] cycles. Rip Rivers DO documented in this encounterSumma Health Barber[facility]02-23-2023 History of Present illness Narrative* Caity CoteEREN.[employer] - 07/29/2022 9:09 AM EST Chief Complaint Patient presents with: Established Patient HPI: Renate Christiansen is a 66 year old female who presents here today for evaluation for treatment today. Per Dr. Rivers's previous note: H/o discovered a lump on the lower inner portion of her right breast in the fall of 2015. She was seen at [facility] and underwent a right sided core biopsy on 02/16/2016 by interventional radiology. The tissue specimen demonstrated invasive ductal carcinoma, [place] grade 2. ERpositive (90%, very weak) and ND negative (0%). HER-2 was quantified at 3+. [...] positive, >90% Ki-67 (30-9) positive, 12% CK8 (26ridtF64) positive CK5-6 (D5 & 1684) negative Calponin-1 (RD284M) negative P40 (BC28) negative E-Cad (ECH-6) positive MORPHOMETRIC ANALYSIS ER (clone 6F11) 15%, weak intensity ND (clone 16/1E2) 0% Her-2Neu (clone CB11) 3+ Block B Calponin-1 (EO248M) negative P40 (BC28) negative CK8 (03kvkoP02) positive INTERPRETATION: A. Right breast 1 o clock, biopsy: Invasive ductal carcinoma, grade 3/3. Positive for estrogen receptors (favorable prognostic indicator). Negative for progesterone receptors (unfavorable prognostic indicator). Positive for overexpression of YGV7mwc. B. Right breast 2 o clock, biopsy: [...] ductal carcinoma (no special type) Histologic Grade ([place] grade): Glandular/tubular differentiation - score 3 Nuclear [...] - previously performed on section of tumor ([id number] / [id number]). ER - positive (15%, weak intensity) ND - negative (0%) Her2 krista - positive (3+) Microcalcifications - present in both invasive carcinoma and non-neoplastic tissue. Clinical history - Please make reference to previous specimen ([id number]) right breast at 1 o clock and [...] 1.00 - 4.00 k/uL 1.34 1.55 1.18 Blount% % 9.7 10.3 10.2 Abs Blount <0.87 k/uL 0.51 0.45 0.37 Eosin% % [...] (primary diagnosis) Metastatic recurrence of ER positive, ND negative, HER2 positive breast cancer. 2. Bone [...] as necessary for today's visit. Caity Cote APRN.[employer] documented in this encounterSumma Health [facility] Campus02-23-2023 History of Present illness Narrative* Rosemary Romero RN - 07/29/2022 8:48 AM EST . documented in this encounterSumma Health Barber[facility] Campus02-21-2023 History of Present illness Narrative* Adriana Thomas [...] PERIPHERAL IV DATA: power port accessed by [employer] SIGNED BY: RT Ashley(R) July 27, 2022 3:22 PM documented in this encounterSumma Health Barber[facility] Campus01-31-2023 History of Present illness Narrative* Rip Rivers, - 07/06/2022 8:47 AM EST Diagnosis: 1) Metastatic recurrence of ER positive, ND negative, HER2 positive breast cancer. 2) Cardiomyopathy. HPI: The patient is a 66 year old female who discovered a lump on the lower inner portion of her right breast in the fall of 2015. She was seen at [facility] and underwent a right sided core biopsy on 02/16/2016 by interventional radiology. The tissue specimen demonstrated invasive ductal carcinoma, [place] grade 2. ERpositive (90%, very weak) and ND negative (0%). HER-2 was quantified at 3+. [...] positive, >90% Ki-67 (30-9) positive, 12% CK8 (18xhndX09) positive CK5-6 (D5 & 1684) negative Calponin-1 (PG693H) negative P40 (BC28) negative E-Cad (ECH-6) positive MORPHOMETRIC ANALYSIS ER (clone 6F11) 15%, weak intensity ND (clone 16/1E2) 0% Her-2Neu (clone CB11) 3+ Block B Calponin-1 (EB599D) negative P40 (BC28) negative CK8 (76bjgcH72) positive INTERPRETATION: A. Right breast 1 o clock, biopsy: Invasive ductal carcinoma, grade 3/3. Positive for estrogen receptors (favorable prognostic indicator). Negative for progesterone receptors (unfavorable prognostic indicator). Positive for overexpression of YWZ4flr. B. Right breast 2 o clock, biopsy: [...] - previously performed on section of tumor ([id number] / [id number]). ER - positive (15%, weak intensity) ND - negative (0%) Her2 krista - positive (3+) Microcalcifications - present in both invasive carcinoma and non-neoplastic tissue. Clinical history - Please make reference to previous specimen ([id number]) right breast at 1 o clock and [...] CARDIOVASCULAR: Rhythm is regular. 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 ABDOMEN: The abdomen is nondistended. Extremities: No swelling or edema. SKIN: Resolution of subcutaneous metastasis near Xyvoid. NEUROLOGIC: [employer] II-XII are grossly intact. Absent patellar DTRs. [...] Abs Lymph 1.00 - 4.00 k/uL 1.55 Blount% % 10.3 Abs Blount <0.87 k/uL 0.45 Eosin% % 5.5 Abs [...] pN0(sln) MX ER positive (9%, very weak) ND negative HER overexpressed stage IIA invasive ductal carcinoma the right breast. -Recurrent pT2(m) pN0 (none of 5 LNs) MX ER +(15%, weak intensity)/ND negative (0%) HER2 3+ invasive ductal carcinoma [...] Reviewed most recent echocardiogram results done at [facility]--scanned. No change from previous. EF normal. [...] care. Rip Rivers DO documented in this encounterSumma Health Barberton Campus01-31-2023 History of Present illness Narrative* Nicolle Funez RN - 07/06/2022 7:24 AM EST Patient is here for IVAD port flush/blood draw per [facility] protocol. IVAD is located in left upper [...] Patient tolerated procedure well. documented in this encounterSumma Health Barberton Campus01-10-2023 History of Present illness Narrative* Caity Cote APRN.[employer] - 06/15/2022 8:22 AM EST Chief Complaint Patient presents with: Established Patient HPI: Renate Christiansen is a 66 year old female who presents here today for evaluation for treatment on . Per Dr. Rivers's previous note: H/o pt. discovered a lump on the lower inner portion of her right breast in the fall of 2015. She was seen at [facility] and underwent a right sided core biopsy on 02/16/2016 by interventional radiology. The tissue specimen demonstrated invasive ductal carcinoma, [place] grade 2. ERpositive (90%, very weak) and ND negative (0%). HER-2 was quantified at 3+. [...] positive, >90% Ki-67 (30-9) positive, 12% CK8 (51ljayB79) positive CK5-6 (D5 & 1684) negative Calponin-1 (ZV599E) negative P40 (BC28) negative E-Cad (ECH-6) positive MORPHOMETRIC ANALYSIS ER (clone 6F11) 15%, weak intensity ND (clone 16/1E2) 0% Her-2Neu (clone CB11) 3+ Block B Calponin-1 (XU481G) negative P40 (BC28) negative CK8 (36byjqY79) positive INTERPRETATION: A. Right breast 1 o clock, biopsy: Invasive ductal carcinoma, grade 3/3. Positive for estrogen receptors (favorable prognostic indicator). Negative for progesterone receptors (unfavorable prognostic indicator). Positive for overexpression of WNP3mqu. B. Right breast 2 o clock, biopsy: [...] - previously performed on section of tumor ([id number] / [id number]). ER - positive (15%, weak intensity) ND - negative (0%) Her2 krista - positive (3+) Microcalcifications - present in both invasive carcinoma and non-neoplastic tissue. Clinical history - Please make reference to previous specimen ([id number]) right breast at 1 o clock and [...] (primary diagnosis) Metastatic recurrence of ER positive, ND negative, HER2 positive breast cancer. 2. Bone [...] of Jun. Pt. has this done at [facility]. - Follow up with Dr. Rivers as scheduled. - Pt. aware to call office with any questions/concerns. The patient indicates understanding of these issues and agrees with the plan. All documentation from previous visit of 05/25/22-Dr. Rivers was copied and pasted, documentation has been reviewed and edited as necessary for today's visit. Caity Cote APRN.[employer] documented in this encounterSumma Health Barberton Campus12-28-2022 Miscellaneous Notes* Telephone Encounter - Jazlyn Harding LPN - 06/02/2022 4:23 PM EST Letter was dictated under Dr. Rivers's name ( he is out of office until 06/08/2022). Patient's current handicap placard does not until 08/11/2022. Will send [employer] message with above information. Jazlyn Harding LPN [...] Please assist. Alexia Stephens documented in this encounterSumma Health Barberton Campus12-22-2022 History of Present illness Narrative* Lexie Hartley RN - 05/27/2022 11:00 AM EST No changes to assessment from 05/25/22. Lexie Hartley RN documented in this encounterSumma Health Barberton Campus12-20-2022 Miscellaneous Notes* Telephone Encounter - Delaney Cast - 05/25/2022 2:30 PM EST Patient returned call and given message below * Telephone Encounter - Jazlyn Harding LPN - 05/25/2022 1:13 PM EST Message left for patient to contact office. [employer] message also sent. Jazlyn Harding LPN * Telephone Encounter - Rip Rivers DO - 05/25/2022 10:36 AM EST Her potassium is running a little low. Keeping optimal potassium levels is important for her heart.Please advise her to start prescription potassium supplement. Rip Rivers DO documented in this encounterSumma Health Barber[facility] Campus12-20-2022 History of Present illness Narrative* Rip Rivers DO - 05/25/2022 8:13 AM EST Diagnosis: 1) Metastatic recurrence of ER positive, ND negative, HER2 positive breast cancer. 2) Cardiomyopathy. HPI: The patient is a 66 year old female who discovered a lump on the lower inner portion of her right breast in the fall of 2015. She was seen at [facility] and underwent a right sided core biopsy on 02/16/2016 by interventional radiology. The tissue specimen demonstrated invasive ductal carcinoma, [place] grade 2. ERpositive (90%, very weak) and ND negative (0%). HER-2 was quantified at 3+. [...] positive, >90% Ki-67 (30-9) positive, 12% CK8 (28pfixO61) positive CK5-6 (D5 & 1684) negative Calponin-1 (WN150T) negative P40 (BC28) negative E-Cad (ECH-6) positive MORPHOMETRIC ANALYSIS ER (clone 6F11) 15%, weak intensity ND (clone 16/1E2) 0% Her-2Neu (clone CB11) 3+ Block B Calponin-1 (AO283U) negative P40 (BC28) negative CK8 (77xjouD80) positive INTERPRETATION: A. Right breast 1 o clock, biopsy: Invasive ductal carcinoma, grade 3/3. Positive for estrogen receptors (favorable prognostic indicator). Negative for progesterone receptors (unfavorable prognostic indicator). Positive for overexpression of VVC1tli. B. Right breast 2 o clock, biopsy: [...] - previously performed on section of tumor ([id number] / [id number]). ER - positive (15%, weak intensity) ND - negative (0%) Her2 krista - positive (3+) Microcalcifications - present in both invasive carcinoma and non-neoplastic tissue. Clinical history - Please make reference to previous specimen ([id number]) right breast at 1 o clock and [...] Resolution of subcutaneous metastasis near Xyvoid. NEUROLOGIC: [employer] II-XII are grossly intact. Absent patellar DTRs. [...] Abs Lymph 1.00 - 4.00 k/uL 1.32 Blount% % 11.2 Abs Blount <0.87 k/uL 0.53 Eosin% % 5.1 Abs [...] pN0(sln) MX ER positive (9%, very weak) ND negative HER overexpressed stage IIA invasive ductal carcinoma the right breast. -Recurrent pT2(m) pN0 (none of 5 LNs) MX ER +(15%, weak intensity)/ND negative (0%) HER2 3+ invasive ductal carcinoma [...] care. Rip Rivers DO documented in this encounterSumma Health Barber[facility] Campus12-19-2022 Miscellaneous Notes* Telephone Encounter - Ami Gilmore [...] 4:17 PM EST . documented in this encounterSumma Health Barber[facility] Campus11-21-2022 History of Present illness Narrative* Adriana Thomas, [...] PERIPHERAL IV DATA: power port accessed by [employer] SIGNED BY: RT Ashley(R) April 26, 2022 4:15 PM documented in this encounterSumma Health Barber[facility] Campus11-14-2022 Miscellaneous Notes* Telephone Encounter - Jazlyn Harding LPN - 04/19/2022 12:57 PM EST All pages were faxed twice now. Jazlyn Harding LPN * Telephone Encounter - Tiffany Cast - 04/19/2022 12:51 PM EST [facility] called stating page 2 is needed for Echo order. They state they need a doc signature. * Telephone Encounter - Jazlyn Harding LPN - 04/19/2022 12:37 PM EST Order faxed and patient notified. Jazlyn Harding LPN * Telephone Encounter - Kwame Guerrero - 04/19/2022 12:14 PM EST Patient is requesting ECHO order to be faxed to [facility], did not have fax number. Please call patient once faxed. documented in this encounterSumma Health Barber[facility] Campus11-11-2022 Miscellaneous Notes* Telephone Encounter - Alexia Stephens - 04/16/2022 4:46 PM EST Echo orders faxed to [facility]. All other appointments scheduled. Alexia Stephens * Telephone Encounter - Emely Lay - 04/14/2022 9:45 AM ESTSummary: AVS 04/14 Check out comments: - ECHO due-done at [facility]. - CT chest/abd/pelvis due. - Continue Zometa every 3 months. - Proceed as scheduled tomorrow for enhertu pending all labs. - Follow up as scheduled. - Pt. aware to call office with any questions/concerns. Pt stated she would stop at desk tomorrow to schedule the above because she forgot her phone/calendar at home documented in this encounterSumma Health Barber[facility] Campus11-10-2022 History of Present illness Narrative* Rosemary Romero RN - 04/15/2022 10:25 AM EST Assessment unchanged from 04/14/22 office visit with Jeniffer Cote CNP documented in this encounterSumma Health Barberton Campus11-09-2022 History of Present illness Narrative* Caity Cote [...] fall of 2015. She was seen at [facility] and underwent a right sided core biopsy on 02/16/2016 by interventional radiology. The tissue specimen demonstrated invasive ductal carcinoma, [place] grade 2. ERpositive (90%, very weak) and ND negative (0%). HER-2 was quantified at 3+. [...] positive, >90% Ki-67 (30-9) positive, 12% CK8 (55hpklM47) positive CK5-6 (D5 & 1684) negative Calponin-1 (ZM264Q) negative P40 (BC28) negative E-Cad (ECH-6) positive MORPHOMETRIC ANALYSIS ER (clone 6F11) 15%, weak intensity ND (clone 16/1E2) 0% Her-2Neu (clone CB11) 3+ Block B Calponin-1 (VW033K) negative P40 (BC28) negative CK8 (71cdetB34) positive INTERPRETATION: A. Right breast 1 o clock, biopsy: Invasive ductal carcinoma, grade 3/3. Positive for estrogen receptors (favorable prognostic indicator). Negative for progesterone receptors (unfavorable prognostic indicator). Positive for overexpression of XGE8okp. B. Right breast 2 o clock, biopsy: [...] ductal carcinoma (no special type) Histologic Grade ([place] grade): Glandular/tubular differentiation - score 3 Nuclear [...] - previously performed on section of tumor ([id number] / [id number]). ER - positive (15%, weak intensity) ND - negative (0%) Her2 krista - positive (3+) Microcalcifications - present in both invasive carcinoma and non-neoplastic tissue. Clinical history - Please make reference to previous specimen ([id number]) right breast at 1 o clock and [...] 1.00 - 4.00 k/uL 1.59 1.26 1.47 Blount% % 11.0 12.4 11.2 Abs Blount <0.87 k/uL 0.47 0.53 0.52 Eosin% % [...] pN0(sln) MX ER positive (9%, very weak) ND negative HER overexpressed stage IIA invasive ductal carcinoma the right breast. -Recurrent pT2(m) pN0 (none of 5 LNs) MX ER +(15%, weak intensity)/ND negative (0%) HER2 3+ invasive ductal carcinoma [...] up with cardiology. - ECHO due-done at [facility]. - CT chest/abd/pelvis due. - Continue [...] visit. Caity Cote APRN.[employer] documented in this encounterSumma Health Barber[facility] Campus11-09-2022 History of Present illness Narrative* Nicolle Funez RN - 04/14/2022 7:42 AM EST Patient is here for IVAD port flush/blood draw per [facility] protocol. IVAD is located in right upper [...] Patient tolerated procedure well. documented in this encounterSumma Health Barber[facility] Campus09-26-2022 Miscellaneous Notes* Telephone Encounter - Caity Cote [...] Out reach. Please fax Lyrica refill to: [phone] documented in this encounterSumma Health Barberton Campus09-21-2022 History of Present illness Narrative* Caity Cote [...] fall of 2015. She was seen at [facility] and underwent a right sided core biopsy on 02/16/2016 by interventional radiology. The tissue specimen demonstrated invasive ductal carcinoma, [place] grade 2. ERpositive (90%, very weak) and ND negative (0%). HER-2 was quantified at 3+. [...] positive, >90% Ki-67 (30-9) positive, 12% CK8 (57riwdI54) positive CK5-6 (D5 & 1684) negative Calponin-1 (ZE049H) negative P40 (BC28) negative E-Cad (ECH-6) positive MORPHOMETRIC ANALYSIS ER (clone 6F11) 15%, weak intensity ND (clone 16/1E2) 0% Her-2Neu (clone CB11) 3+ Block B Calponin-1 (US167Q) negative P40 (BC28) negative CK8 (87qhtfS77) positive INTERPRETATION: A. Right breast 1 o clock, biopsy: Invasive ductal carcinoma, grade 3/3. Positive for estrogen receptors (favorable prognostic indicator). Negative for progesterone receptors (unfavorable prognostic indicator). Positive for overexpression of YXC4mes. B. Right breast 2 o clock, biopsy: [...] - previously performed on section of tumor (W23-4375 / [id number]). ER - positive (15%, weak intensity) ND - negative (0%) Her2 krista - positive (3+) Microcalcifications - present in both invasive carcinoma and non-neoplastic tissue. Clinical history - Please make reference to previous specimen ([id number]) right breast at 1 o clock and [...] - 4.00 k/uL 1.22 1.17 1.50 1.59 Blount% % 11.4 5.2 11.6 11.0 Abs Blount <0.87 k/uL 0.43 0.45 0.51 0.47 Eosin% [...] pN0(sln) MX ER positive (9%, very weak) ND negative HER overexpressed stage IIA invasive ductal carcinoma the right breast. -Recurrent pT2(m) pN0 (none of 5 LNs) MX ER +(15%, weak intensity)/ND negative (0%) HER2 3+ invasive ductal carcinoma [...] visit. Caity Cote APRN.ALESSANDRO documented in this encounterSumma Health Barberton Campus09-13-2022 Miscellaneous Notes* Telephone Encounter - Chrissie Lama [...] patient. Chrissie Lama LPN documented in this encounterSumma Health Barberton Campus08-31-2022 History of Present illness Narrative* Rip Rivers DO - 02/03/2022 9:50 AM EDT Diagnosis: 1) Metastatic recurrence of ER positive, ND negative, HER2 positive breast cancer. 2) Cardiomyopathy. HPI: The patient is a 66 year old female who discovered a lump on the lower inner portion of her right breast in the fall of 2015. She was seen at [facility] and underwent a right sided core biopsy on 02/16/2016 by interventional radiology. The tissue specimen demonstrated invasive ductal carcinoma, [place] grade 2. ERpositive (90%, very weak) and ND negative (0%). HER-2 was quantified at 3+. [...] positive, >90% Ki-67 (30-9) positive, 12% CK8 (85bajyV09) positive CK5-6 (D5 & 1684) negative Calponin-1 (IP450S) negative P40 (BC28) negative E-Cad (ECH-6) positive MORPHOMETRIC ANALYSIS ER (clone 6F11) 15%, weak intensity ND (clone 16/1E2) 0% Her-2Neu (clone CB11) 3+ Block B Calponin-1 (KY534H) negative P40 (BC28) negative CK8 (38ymqdF09) positive INTERPRETATION: A. Right breast 1 o clock, biopsy: Invasive ductal carcinoma, grade 3/3. Positive for estrogen receptors (favorable prognostic indicator). Negative for progesterone receptors (unfavorable prognostic indicator). Positive for overexpression of QKI5tzz. B. Right breast 2 o clock, biopsy: [...] ductal carcinoma (no special type) Histologic Grade ([place] grade): Glandular/tubular differentiation - score 3 Nuclear [...] - previously performed on section of tumor ([id number] / [id number]). ER - positive (15%, weak intensity) ND - negative (0%) Her2 krista - positive (3+) Microcalcifications - present in both invasive carcinoma and non-neoplastic tissue. Clinical history - Please make reference to previous specimen ([id number]) right breast at 1 o clock and [...] Resolution of subcutaneous metastasis near Xyvoid. NEUROLOGIC: [employer] II-XII are grossly intact. Absent patellar DTRs. ASSESSMENT/PLAN: (C50.311, Z17.0) Malignant neoplasm of lower-inner quadrant of right breast of female, estrogen receptor positive (HCC) (primary encounter diagnosis) Assessment: -Originally pT2 pN0(sln) MX ER positive (9%, very weak) ND negative HER overexpressed stage IIA invasive ductal carcinoma the right breast. -Recurrent pT2(m) pN0 (none of 5 LNs) MX ER +(15%, weak intensity)/ND negative (0%) HER2 3+ invasive ductal carcinoma [...] care. Rip Rivers DO documented in this encounterSumma Health Barberton Campus08-31-2022 History of Present illness Narrative* Nicolle Funez RN - 02/03/2022 7:51 AM EDT Patient is here for IVAD port flush/blood draw per [facility] protocol. IVAD is located in left upper [...] Patient tolerated procedure well. documented in this encounterSumma Health Barberton Campus08-04-2022 Miscellaneous Notes* Telephone Encounter - Jazlyn Harding LPN - 01/07/2022 11:51 AM EDT New order faxed to [facility] echo lab. Jazlyn Harding LPN * Telephone Encounter - Rip Rivers DO - 01/07/2022 11:44 AM EDT Order filed. Rip Rivers DO * Telephone Encounter - Jazlyn Harding LPN - 01/07/2022 11:03 AM EDT Tech questioning why another complete echo is needed not a limited echo? Patient just had a complete study done 10/27/2021. Please place a limited echo order if appropriate. Patient is scheduled tomorrow. Jazlyn Harding LPN * Telephone Encounter - Crystal Irby - 01/07/2022 10:55 AM EDT [facility] echo lab is calling in regards to this pts order, please call them back at [phone] ext [phone]. Crystal Irby documented in this encounterSumma Health Barber[facility] Campus08-04-2022 History of Present illness Narrative* RT Rima(R) [...] 07, 2022 2:26 PM documented in this encounterSumma Health Barber[facility] Campus08-04-2022 History of Present illness Narrative* Nicolle Funez RN - 01/07/2022 7:40 AM EDT Patient is here for IVAD port flush/blood draw per [facility] protocol. IVAD is located in right upper [...] Patient tolerated procedure well. documented in this encounterSumma Health Barberton Campus07-22-2022 Miscellaneous Notes* Telephone Encounter - Karen Foreman [...] can see it? Can be reached at [phone] Thank you Leesa Capone Pss documented in this encounterSumma Health Barberton Campus07-21-2022 Miscellaneous Notes* Telephone Encounter - Williams Scott Pss - 12/24/2021 3:52 PM EDT Echo order faxed to [facility]. Patient due end of January. documented in this encounterSumma Health Barberton Campus07-20-2022 History of Present illness Narrative* Caity Cote APRN.[employer] - 12/23/2021 9:28 AM EDT Chief Complaint Patient presents with: Established Patient HPI: Renate Christiansen is a 66 year old female who presents here today for evaluation for treatment tomorrow. Per Dr. Rivers's previous note: H/o pt. discovered a lump on the lower inner portion of her right breast in the fall of 2015. She was seen at [facility] and underwent a right sided core biopsy on 02/16/2016 by interventional radiology. The tissue specimen demonstrated invasive ductal carcinoma, [place] grade 2. ERpositive (90%, very weak) and ND negative (0%). HER-2 was quantified at 3+. [...] positive, >90% Ki-67 (30-9) positive, 12% CK8 (84yqarC98) positive CK5-6 (D5 & 1684) negative Calponin-1 (SB870D) negative P40 (BC28) negative E-Cad (ECH-6) positive MORPHOMETRIC ANALYSIS ER (clone 6F11) 15%, weak intensity ND (clone 16/1E2) 0% Her-2Neu (clone CB11) 3+ Block B Calponin-1 (IG578N) negative P40 (BC28) negative CK8 (83tnrnY45) positive INTERPRETATION: A. Right breast 1 o clock, biopsy: Invasive ductal carcinoma, grade 3/3. Positive for estrogen receptors (favorable prognostic indicator). Negative for progesterone receptors (unfavorable prognostic indicator). Positive for overexpression of QOO7qry. B. Right breast 2 o clock, biopsy: [...] - previously performed on section of tumor ([id number] / [id number]). ER positive (15%, weak intensity) ND negative (0%) Her2 krista positive (3+) Microcalcifications present in both invasive carcinoma and non-neoplastic tissue. Clinical history - Please make reference to previous specimen ([id number]) right breast at 1 o clock and [...] 1.00 - 4.00 k/uL 1.55 1.26 1.22 Blount% % 7.1 11.1 11.4 Abs Blount <0.87 k/uL 0.37 0.44 0.43 Eosin% % [...] pN0(sln) MX ER positive (9%, very weak) ND negative HER overexpressed stage IIA invasive ductal carcinoma the right breast. -Recurrent pT2(m) pN0 (none of 5 LNs) MX ER +(15%, weak intensity)/ND negative (0%) HER2 3+ invasive ductal carcinoma [...] months. - ECHO due end of January-at [facility]. - CT's early first week of [...] visit. Caity Cote APRN.ALESSANDRO documented in this encounterSumma Health Barberton Campus06-29-2022 History of Present illness Narrative* Rip Rivers DO - 12/02/2021 11:47 AM EDT Diagnosis: 1) Metastatic recurrence of ER positive, ND negative, HER2 positive breast cancer. 2) Cardiomyopathy. HPI: The patient is a 66 year old female who discovered a lump on the lower inner portion of her right breast in the fall of 2015. She was seen at [facility] and underwent a right sided core biopsy on 02/16/2016 by interventional radiology. The tissue specimen demonstrated invasive ductal carcinoma, Yohan grade 2. ERpositive (90%, very weak) and ND negative (0%). HER-2 was quantified at 3+. [...] positive, >90% Ki-67 (30-9) positive, 12% CK8 (60jrwyJ00) positive CK5-6 (D5 & 1684) negative Calponin-1 (CV670A) negative P40 (BC28) negative E-Cad (ECH-6) positive MORPHOMETRIC ANALYSIS ER (clone 6F11) 15%, weak intensity ND (clone 16/1E2) 0% Her-2Neu (clone CB11) 3+ Block B Calponin-1 (GR015P) negative P40 (BC28) negative CK8 (38jvilP15) positive INTERPRETATION: A. Right breast 1 o clock, biopsy: Invasive ductal carcinoma, grade 3/3. Positive for estrogen receptors (favorable prognostic indicator). Negative for progesterone receptors (unfavorable prognostic indicator). Positive for overexpression of SHM2nts. B. Right breast 2 o clock, biopsy: [...] ductal carcinoma (no special type) Histologic Grade ([place] grade): Glandular/tubular differentiation - score 3 Nuclear [...] - previously performed on section of tumor ([id number] / [id number]). ER positive (15%, weak intensity) ND negative (0%) Her2 krista positive (3+) Microcalcifications present in both invasive carcinoma and non-neoplastic tissue. Clinical history - Please make reference to previous specimen ([id number]) right breast at 1 o clock and [...] Resolution of subcutaneous metastasis near Xyvoid. NEUROLOGIC: [employer] II-XII are grossly intact. Absent patellar DTRs. ASSESSMENT/PLAN: (C50.311, Z17.0) Malignant neoplasm of lower-inner quadrant of right breast of female, estrogen receptor positive (HCC) (primary encounter diagnosis) Assessment: -Originally pT2 pN0(sln) MX ER positive (9%, very weak) ND negative HER overexpressed stage IIA invasive ductal carcinoma the right breast. -Recurrent pT2(m) pN0 (none of 5 LNs) MX ER +(15%, weak intensity)/ND negative (0%) HER2 3+ invasive ductal carcinoma [...] Rip Rivers DO documented in this encounterCleveland [id number] History of Present illness Narrative* Nicolle Funez RN - 12/02/2021 7:35 AM EDT Patient is here for IVAD port flush/blood draw per [facility] [place] protocol. IVAD is located in right upper [...] Patient tolerated procedure well. documented in this encounterSumma Health [facility]06-08-2022 History of Present illness Narrative* Rip Rivers DO - 11/11/2021 10:34 AM EDT Diagnosis: 1) Metastatic recurrence of ER positive, ND negative, HER2 positive breast cancer. 2) Cardiomyopathy. HPI: The patient is a 66 year old female who discovered a lump on the lower inner portion of her right breast in the fall of 2015. She was seen at [facility] and underwent a right sided core biopsy on 02/16/2016 by interventional radiology. The tissue specimen demonstrated invasive ductal carcinoma, Yohan grade 2. ERpositive (90%, very weak) and ND negative (0%). HER-2 was quantified at 3+. [...] positive, >90% Ki-67 (30-9) positive, 12% CK8 (05cjcdV15) positive CK5-6 (D5 & 1684) negative Calponin-1 (DR076Y) negative P40 (BC28) negative E-Cad (ECH-6) positive MORPHOMETRIC ANALYSIS ER (clone 6F11) 15%, weak intensity ND (clone 16/1E2) 0% Her-2Neu (clone CB11) 3+ Block B Calponin-1 (CE929L) negative P40 (BC28) negative CK8 (73lhlrJ72) positive INTERPRETATION: A. Right breast 1 o clock, biopsy: Invasive ductal carcinoma, grade 3/3. Positive for estrogen receptors (favorable prognostic indicator). Negative for progesterone receptors (unfavorable prognostic indicator). Positive for overexpression of BDL5ulg. B. Right breast 2 o clock, biopsy: [...] - previously performed on section of tumor ([id number] / XX40-1610). ER positive (15%, weak intensity) ND negative (0%) Her2 krista positive (3+) Microcalcifications present in both invasive carcinoma and non-neoplastic tissue. Clinical history - Please make reference to previous specimen ([id number]) right breast at 1 o clock and [...] (98.1 F), weight 83.5 kg (184 lb), QoQ730 %. Well-appearing and in no acute distress. EYES: Sclerae are anicteric bilaterally. LYMPHATIC: There is no palpable cervical, supraclavicular, axillary adenopathy. RESPIRATORY: Inspiratory breath sounds are of normal intensity in all barnes. No rales, wheezes or rhonchi. CARDIOVASCULAR: Rhythm is regular. ABDOMEN: The abdomen is nondistended. Extremities: No swelling or edema. SKIN: Resolution of subcutaneous metastasis near Xyvoid. NEUROLOGIC: [employer] II-XII are grossly intact. Absent patellar DTRs. ASSESSMENT/PLAN: (C50.311, Z17.0) Malignant neoplasm of lower-inner quadrant of right breast of female, estrogen receptor positive (HCC) (primary encounter diagnosis) Assessment: -Originally pT2 pN0(sln) MX ER positive (9%, very weak) ND negative HER overexpressed stage IIA invasive ductal carcinoma the right breast. -Recurrent pT2(m) pN0 (none of 5 LNs) MX ER +(15%, weak intensity)/ND negative (0%) HER2 3+ invasive ductal carcinoma [...] care. Rip Rivers DO documented in this encounterSumma Health Barber[facility]06-03-2022 History of Present illness Narrative* RT Rima(R) [...] PERIPHERAL IV DATA: power port accessed by [employer] SIGNED BY: RT Ashley(R) November 06, 2021 3:14 PM documented in this encounterSumma Health Barberton Campus05-19-2022 History of Present illness Narrative* Rosemary Romero RN - 10/22/2021 9:50 AM EDT Assessment unchanged from office visit with Mary Cote on 10/21/21 documented in this encounterSumma Health Barberton Campus05-18-2022 Miscellaneous Notes* Telephone Encounter - Williams Scott Pss - 10/21/2021 10:16 AM EDT Echo order faxed to [facility]. documented in this encounterSumma Health Barberton Campus05-18-2022 History of Present illness Narrative* Caity Cote APRN.[employer] - 10/21/2021 9:17 AM EDT Chief Complaint Patient presents with: Established Patient HPI: Renate Christiansen is a 66 year old female who presents here today for evaluation for treatment tomorrow. Per Dr. Rivers's previous note: H/o discovered a lump on the lower inner portion of her right breast in the fall of 2015. She was seen at [facility] and underwent a right sided core biopsy on 02/16/2016 by interventional radiology. The tissue specimen demonstrated invasive ductal carcinoma, Yohan grade 2. ERpositive (90%, very weak) and ND negative (0%). HER-2 was quantified at 3+. [...] positive, >90% Ki-67 (30-9) positive, 12% CK8 (40mhzlB63) positive CK5-6 (D5 & 1684) negative Calponin-1 (OX559V) negative P40 (BC28) negative E-Cad (ECH-6) positive MORPHOMETRIC ANALYSIS ER (clone 6F11) 15%, weak intensity ND (clone 16/1E2) 0% Her-2Neu (clone CB11) 3+ Block B Calponin-1 (AK656X) negative P40 (BC28) negative CK8 (31qktvT47) positive INTERPRETATION: A. Right breast 1 o clock, biopsy: Invasive ductal carcinoma, grade 3/3. Positive for estrogen receptors (favorable prognostic indicator). Negative for progesterone receptors (unfavorable prognostic indicator). Positive for overexpression of UIX0dmm. B. Right breast 2 o clock, biopsy: [...] - previously performed on section of tumor ([id number] / [id number]). ER positive (15%, weak intensity) ND negative (0%) Her2 krista positive (3+) Microcalcifications present in both invasive carcinoma and non-neoplastic tissue. Clinical history - Please make reference to previous specimen ([id number]) right breast at 1 o clock and [...] - 4.00 k/uL 1.29 1.29 1.14 1.42 Blount% % 9.9 9.6 8.2 9.5 Abs Blount <0.87 k/uL 0.57 0.46 0.55 0.45 Eosin% [...] pN0(sln) MX ER positive (9%, very weak) ND negative HER overexpressed stage IIA invasive ductal carcinoma the right breast. -Recurrent pT2(m) pN0 (none of 5 LNs) MX ER +(15%, weak intensity)/ND negative (0%) HER2 3+ invasive ductal carcinoma [...] every 3 cycles. Pt. has this done [facility]. - Continue zometa every 3 months. [...] as necessary for today's visit. Caity Cote APRN.[employer] documented in this encounterSumma Health Barberton Campus04-28-2022 History of Present illness Narrative* Rosemary Romero RN - 10/01/2021 8:59 AM EDT Assessment unchanged from Dr rivers office visit documented in this encounterSumma Health Barberton Campus04-27-2022 History of Present illness Narrative* Rip Rivers, DO - 09/30/2021 10:26 AM EDT Diagnosis: 1) Metastatic recurrence of ER positive, ND negative, HER2 positive breast cancer. 2) Cardiomyopathy. HPI: The patient is a 65 year old female who discovered a lump on the lower inner portion of her right breast in the fall of 2015. She was seen at [facility] and underwent a right sided core biopsy on 02/16/2016 by interventional radiology. The tissue specimen demonstrated invasive ductal carcinoma, [place] grade 2. ERpositive (90%, very weak) and ND negative (0%). HER-2 was quantified at 3+. [...] positive, >90% Ki-67 (30-9) positive, 12% CK8 (46qlaaL27) positive CK5-6 (D5 & 1684) negative Calponin-1 (MF765F) negative P40 (BC28) negative E-Cad (ECH-6) positive MORPHOMETRIC ANALYSIS ER (clone 6F11) 15%, weak intensity ND (clone 16/1E2) 0% Her-2Neu (clone CB11) 3+ Block B Calponin-1 (GA173A) negative P40 (BC28) negative CK8 (81uywaK79) positive INTERPRETATION: A. Right breast 1 o clock, biopsy: Invasive ductal carcinoma, grade 3/3. Positive for estrogen receptors (favorable prognostic indicator). Negative for progesterone receptors (unfavorable prognostic indicator). Positive for overexpression of PBC0pxm. B. Right breast 2 o clock, biopsy: [...] ductal carcinoma (no special type) Histologic Grade ([place] grade): Glandular/tubular differentiation - score 3 Nuclear [...] - previously performed on section of tumor ([id number] / AX50-3234). ER positive (15%, weak intensity) ND negative (0%) Her2 krista positive (3+) Microcalcifications present in both invasive carcinoma and non-neoplastic tissue. Clinical history - Please make reference to previous specimen ([id number]) right breast at 1 o clock and [...] resolution of subcutaneous metastasis near Xyvoid. NEUROLOGIC: [employer] II-XII are grossly intact. Absent patellar DTRs. ASSESSMENT/PLAN: (C50.311, Z17.0) Malignant neoplasm of lower-inner quadrant of right breast of female, estrogen receptor positive (HCC) (primary encounter diagnosis) Assessment: -Originally pT2 pN0(sln) MX ER positive (9%, very weak) ND negative HER overexpressed stage IIA invasive ductal carcinoma the right breast. -Recurrent pT2(m) pN0 (none of 5 LNs) MX ER +(15%, weak intensity)/ND negative (0%) HER2 3+ invasive ductal carcinoma [...] care. Rip Rivers DO documented in this encounterSumma Health Barberton Campus04-08-2022 Miscellaneous Notes* Telephone Encounter - Carla Almonte [...] patient. Carla Almonte RN documented in this encounterSumma Health Barberton Campus04-06-2022 History of Present illness Narrative* Cris Ashby [...] Dosing Weight: 86.6 kg Estimated kilocalorie needs: 6687-3785 kilocalories determined by 25-30 kcal/kg Estimated protein [...] Ciprocinonide, Codeine, Demerol [Meperidine (Pf)], Erythromycin, Latex, [place] [Hydrocodone- Acetaminophen], Nubain [Nalbuphine Hcl], Percocet [Oxycodone-Acetaminophen], Prednisone, [place], and Sulfa (Sulfonamide Antibiotics) Medications: Current Outpatient [...] POSIFLUSH) 10 mL INTRAVENOUS DIRECTED SHIRA Cote APRN.[employer] (date of last encounter ): Nutrition Monitoring [...] by: Cris Ashby RD,DAVID documented in this encounterSumma Health Barberton Campus04-05-2022 Miscellaneous Notes* Telephone Encounter - DIO Leach - 09/08/2021 11:58 AM EDT SOCIAL WORK FOLLOW UP NOTE: [facility] Date of service: September 08, 2021 Renate Christiansen is being seen for a follow up social work visit. Today's visit includes: patient and Rx Outreach TOPICS ADDRESSED: Finances; Lyrica Rx from [employer] Dropt only for 60 capsules, which would cost [...] F/U APPOINTMENT: PRDIO Schmidt documented in this encounterSumma Health Barberton Campus04-04-2022 History of Present illness Narrative* DIO Leach [...] F/U APPOINTMENT: PRDIO Schmidt documented in this encounterSumma Health Barber[facility] Campus04-04-2022 History of Present illness Narrative* Jazmin Jacobsen [...] 07, 2021 10:42 AM documented in this encounterSumma Health Barber[facility] Campus04-01-2022 Miscellaneous Notes* Telephone Encounter - Kayla Elliott - 09/04/2021 3:58 PM EDT Rec'd email from department. Spoke with patient today. Patient is active with Medicare A and B as well as [facility] AARP Supplement and is not expected to have any financial responsibility for treatment in[facility]. There are no open foundations for dx. Patient stated understanding and advised that she does not need any assistance. documented in this encounterSumma Health Barberton Campus04-01-2022 Nurse Note* Carla Almonte RN - 09/04/2021 [...] RESPONSE DIAGNOSIS: Metastatic recurrence of ER positive, ND negative, HER2 positive breast cancer METHOD OF [...] Work Carla Almonte RN documented in this encounterSumma Health Barber[facility] Campus03-31-2022 Miscellaneous Notes* Telephone Encounter - Williams Scott [...] delay a week. Patient also requesting a manager strategic sourcing appointment. Please schedule on 09/09/21 at 11:00 [...] week. Carla Almonte RN documented in this encounterSumma Health Barberton Campus03-31-2022 Miscellaneous Notes* Telephone Encounter - DIO Leach [...] living Child/Children: Yes. How many? 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 No EMPLOYMENT/FINANCIAL/HEALTH INSURANCE: Employment: Retired Income source: Social Security Insurance: Medicare with co-insurance Prescription coverage: Yes Is the patient appropriate for [facility] to [facility] COBRA Assistance program? No Financial Distress: No [...] EPIC: Yes Health Care Durable Power of Eyeglass Frames Inspector: Yes Scanned into EPIC: Yes Guardianship: NA [...] SW in: DIO Velasco documented in this encounterSumma Health Barber[facility] Campus03-30-2022 Miscellaneous Notes* Telephone Encounter - Carla Almonte [...] patient. Carla Almonte RN documented in this encounterSumma Health Barberton Campus03-30-2022 History of Present illness Narrative* Rip Rivers DO - 09/02/2021 10:14 AM EDT Diagnosis: 1) Metastatic recurrence of ER positive, ND negative, HER2 positive breast cancer. 2) Cardiomyopathy. HPI: The patient is a 65 year old female who discovered a lump on the lower inner portion of her right breast in the fall of 2015. She was seen at [facility] and underwent a right sided core biopsy on 02/16/2016 by interventional radiology. The tissue specimen demonstrated invasive ductal carcinoma, Yohan grade 2. ERpositive (90%, very weak) and ND negative (0%). HER-2 was quantified at 3+. [...] positive, >90% Ki-67 (30-9) positive, 12% CK8 (05wdbzP01) positive CK5-6 (D5 & 1684) negative Calponin-1 (DJ227Y) negative P40 (BC28) negative E-Cad (ECH-6) positive MORPHOMETRIC ANALYSIS ER (clone 6F11) 15%, weak intensity ND (clone 16/1E2) 0% Her-2Neu (clone CB11) 3+ Block B Calponin-1 (ND373P) negative P40 (BC28) negative CK8 (48wrgoJ46) positive INTERPRETATION: A. Right breast 1 o clock, biopsy: Invasive ductal carcinoma, grade 3/3. Positive for estrogen receptors (favorable prognostic indicator). Negative for progesterone receptors (unfavorable prognostic indicator). Positive for overexpression of CLG6jtx. B. Right breast 2 o clock, biopsy: [...] ductal carcinoma (no special type) Histologic Grade ([place] grade): Glandular/tubular differentiation - score 3 Nuclear [...] - previously performed on section of tumor ([id number] / [id number]). ER positive (15%, weak intensity) ND negative (0%) Her2 krista positive (3+) Microcalcifications present in both invasive carcinoma and non-neoplastic tissue. Clinical history - Please make reference to previous specimen ([id number]) right breast at 1 o clock and [...] (98.4 F), weight 86.6 kg (191 lb), VpK544 %. Well-appearing and in no acute distress. EYES: Sclerae are anicteric bilaterally. LYMPHATIC: There is no palpable cervical, supraclavicular, axillary adenopathy. RESPIRATORY: Inspiratory breath sounds are of normal intensity in all barnes. No rales, wheezes or rhonchi. Expiratory phase is normal. CARDIOVASCULAR: Rhythm is regular. ABDOMEN: The abdomen is nondistended. Extremities: No swelling or edema. SKIN: No jaundice or rash. No petechiae. NEUROLOGIC: [employer] II-XII are grossly intact. Absent patellar DTRs. MUSCULOSKELETAL: Palpable chest wall nodule just to the right of lower sternum is stable. ASSESSMENT/PLAN: (C50.311, Z17.0) Malignant neoplasm of lower-inner quadrant of right breast of female, estrogen receptor positive (HCC) (primary encounter diagnosis) Assessment: -Originally pT2 pN0(sln) MX ER positive (9%, very weak) ND negative HER overexpressed stage IIA invasive ductal carcinoma the right breast. -Recurrent pT2(m) pN0 (none of 5 LNs) MX ER +(15%, weak intensity)/ND negative (0%) HER2 3+ invasive ductal carcinoma [...] care. Rip Rivers DO documented in this encounterSumma Health Barberton Campus03-22-2022 History of Present illness Narrative* Shae Marisol, [...] 823 PATIENT DISCHARGED TO: Ambulatory patient, left [place] department area. A Diagnostic radioactive procedure has taken place, with no further precautions necessary other than routine body substance precautions. More information regarding radiation safety can be found usingthis link: [email or web address] SIGNATURE: RT Fannie(R) PATIENT NAME: Renate Christiansen DATE: August 25, 2021 TIME: 8:35 AM PAGER/CONTACT #: documented in this encounterSumma Health Barberton CampusEvaluation note* Diagnosis Malignant neoplasm of lower-inner quadrant of right breast of female, estrogen receptor positive (HCC) Bone metastases (HCC) Secondary malignant neoplasm of bone and bone marrow documented in this encounter [facility]Evaluation [facility]* Diagnosis Malignant neoplasm of lower-inner quadrant of right breast of female, estrogen receptor positive (HCC)- Primary Malignant neoplasm metastatic to both lungs (HCC) Skin, 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 Thyroid nodule Nontoxic uninodular goiter [facility] Malignant neoplasm of lower-inner quadrant of right breast of female, estrogen receptor positive (HCC) Malignant neoplasm metastatic to lung, unspecified laterality (HCC) [facility] Diagnosis Malignant neoplasm of lower-inner quadrant of right breast of female, estrogen receptor positive (HCC)- Primary Malignant neoplasm metastatic to both lungs (HCC) [facility] Diagnosis Malignant neoplasm of lower-inner quadrant of right female breast, unspecified estrogen receptor status (HCC)- Primary [facility] Diagnosis Thyroid nodule Nontoxic uninodular goiter [facility] Diagnosis Malignant neoplasm of lower-inner quadrant of right breast of female, estrogen receptor positive (HCC) Malignant neoplasm metastatic to both lungs (HCC) [facility] Diagnosis Malignant neoplasm metastatic to [...] Resolution Status Non-ischemic cardiomyopathy resolved [facility] Work Phone: Evaluation note* Diagnosis Malignant [...] Secondary cardiomyopathy, unspecified [facility] Diagnosis Malignant neoplasm of lower-inner [...] therapeutic drug monitoring documented in this encounter [facility]* Diagnosis Bone metastases (HCC)- Primary Secondary malignant neoplasm of bone and bone marrow Malignant neoplasm metastatic to lung, unspecified laterality (HCC) Malignant neoplasm of lower-inner quadrant of right breast of female, estrogen receptor positive (HCC) documented in this encounter [facility]* Diagnosis Malignant neoplasm metastatic to lung, unspecified laterality (HCC)- Primary documented in this encounter [facility]* Diagnosis Onset Date Resolution Status Breast cancer, right breast chronic [facility] Work Phone: Evaluation note* Diagnosis Malignant neoplasm metastatic to lung, unspecified laterality (HCC)- Primary Bone metastases (HCC) Secondary malignant neoplasm of bone and bone marrow Malignant neoplasm of lower-inner quadrant of right breast of female, estrogen receptor positive (HCC) Chemotherapy induced diarrhea Diarrhea documented in this encounter [facility]* Diagnosis Malignant neoplasm of lower-inner quadrant of right breast of female, estrogen receptor positive (HCC)- Primary Bone metastases (HCC) 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, 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 Malignant neoplasm metastatic to both lungs (HCC) [facility] Bone metastases (HCC)- Primary Secondary malignant neoplasm of bone and bone marrow Malignant neoplasm metastatic to lung, unspecified laterality (HCC) Malignant neoplasm of lower-inner quadrant of right breast of female, estrogen receptor positive (HCC) [facility] Diagnosis Malignant neoplasm of lower-inner quadrant of right breast of female, estrogen receptor positive (HCC)- Primary Bone metastases (HCC) 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, 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 Malignant neoplasm metastatic to both lungs (HCC) Encounter for monitoring cardiotoxic drug therapy Encounter for therapeutic drug monitoring documented in this encounter [facility]* Diagnosis Skin, 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)- Primary Secondary malignant neoplasm of skin Bone metastases (HCC) Secondary malignant neoplasm of bone and bone marrow Malignant neoplasm metastatic to lung, unspecified laterality (HCC) Malignant neoplasm of lower-inner quadrant of right breast of female, estrogen receptor positive (HCC) documented in this encounter [facility]* Diagnosis Skin, 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)- Primary Secondary malignant neoplasm of skin Malignant neoplasm metastatic to lung, unspecified laterality (HCC) Bone metastases (HCC) Secondary malignant neoplasm of bone and bone marrow Malignant neoplasm of lower-inner quadrant of right breast of female, estrogen receptor positive (HCC) [facility] Diagnosis Malignant neoplasm of lower-inner [...] Secondary cardiomyopathy, unspecified [facility] Diagnosis Bone metastases (HCC)- Primary [...] due to drugs documented in this encounter [facility]* Diagnosis Malignant neoplasm metastatic to bone (HCC)- Primary Secondary malignant neoplasm of bone and bone marrow Malignant neoplasm metastatic to lung, unspecified laterality (HCC) Malignant neoplasm of lower-inner quadrant of right breast of female, estrogen receptor positive (HCC) Chemotherapy induced diarrhea Diarrhea documented in this encounter [facility]* Diagnosis Malignant neoplasm of lower-inner quadrant of right breast of female, estrogen receptor positive (HCC) Malignant neoplasm metastatic to bone (HCC) Secondary malignant neoplasm of bone and bone marrow Malignant neoplasm metastatic to lung, unspecified laterality (HCC) 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, unspecified documented in this encounter [facility]* Diagnosis Onset Date Resolution Status Non-ischemic cardiomyopathy acute Breast cancer, right breast chronic [facility] Work Phone: Evaluation note* Diagnosis Malignant neoplasm metastatic to left lung (HCC)- [facility] Diagnosis Malignant neoplasm metastatic to left lung (HCC)- Primary [facility] Diagnosis Onset Date Resolution Status Non-ischemic cardiomyopathy acute Breast cancer, right breast chronic Acute dyspnea acute Breast cancer metastasized to lung acute Elevated d-dimer acute [facility] Work Phone: Evaluation note* Diagnosis Malignant neoplasm metastatic to bone (HCC)- Primary Secondary malignant neoplasm of bone and bone marrow [facility] Diagnosis Malignant neoplasm metastatic to left lung (HCC)- Primary [facility] Diagnosis Malignant neoplasm of lower-inner quadrant of right breast of female, estrogen receptor positive (HCC) Malignant neoplasm metastatic to bone (HCC) Secondary malignant neoplasm of bone and bone marrow Malignant neoplasm metastatic to lung, unspecified laterality (HCC) 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, unspecified [facility] Diagnosis Malignant neoplasm metastatic to bone [...] Secondary cardiomyopathy, unspecified [facility] Diagnosis Malignant neoplasm of lower-inner quadrant of right breast of female, estrogen receptor positive (HCC)- Primary Malignant neoplasm metastatic to both lungs (HCC) Encounter for monitoring cardiotoxic drug therapy Encounter for therapeutic drug monitoring Malignant neoplasm metastatic to bone (HCC) 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, unspecified [facility] Diagnosis Malignant neoplasm metastatic to bone (HCC)- Primary Secondary malignant neoplasm of bone and bone marrow Malignant neoplasm metastatic to lung, unspecified laterality (HCC) Malignant neoplasm of lower-inner quadrant of right breast of female, estrogen receptor positive (HCC) [facility] Onset Date Resolution Status Acute dyspnea acute Non-ischemic cardiomyopathy acute Breast cancer, right breast chronic [facility] Work Phone: Evaluation note* Diagnosis Malignant neoplasm of lower-inner quadrant of right breast of female, estrogen receptor positive (HCC) (HCC) Malignant neoplasm metastatic to bone (HCC) Secondary malignant neoplasm of bone and bone marrow Malignant neoplasm metastatic to lung, unspecified laterality (HCC) Chemotherapy-induced cardiomyopathy (HCC) (HCC) Secondary cardiomyopathy, unspecified [facility] Diagnosis Malignant neoplasm of lower-inner quadrant of right breast of female, estrogen receptor positive (HCC) (HCC)- Primary Malignant neoplasm metastatic to both lungs (HCC) Malignant neoplasm metastatic to bone (HCC) Secondary malignant neoplasm of bone and bone marrow [facility] Diagnosis Malignant neoplasm metastatic to bone (HCC)- Primary Secondary malignant neoplasm of bone and bone marrow Malignant neoplasm metastatic to lung, unspecified laterality (HCC) Malignant neoplasm of lower-inner quadrant of right breast of female, estrogen receptor positive (HCC) (HCC) [facility] Diagnosis Malignant neoplasm metastatic to left lung (HCC) [facility] Diagnosis Malignant neoplasm of lower-inner [...] neoplasm of lung [facility] Diagnosis Malignant neoplasm of lower-inner [...] of breast (HCC) [facility] Diagnosis Malignant neoplasm of lower-inner [...] of breast (HCC) [facility] Diagnosis Malignant neoplasm of prostate (HCC)- Primary Malignant neoplasm of prostate Malignant neoplasm of lower-inner quadrant of right breast of female, estrogen receptor positive (HCC) Malignant neoplasm metastatic to lung, unspecified laterality (HCC) Malignant neoplasm metastatic to bone (HCC) 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) [facility] Diagnosis Malignant neoplasm of lower-inner quadrant [...] therapeutic drug monitoring [facility] Diagnosis Malignant neoplasm metastatic to both lungs (CMS/HCC)- Primary Malignant neoplasm metastatic to bone (CMS/HCC) 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) Platelets decreased (CMS/HCC) Unspecified thrombocytopenia Primary hypertension Unspecified essential hypertension Heart disease Unspecified heart disease documented in this encounter [facility] Work Phone: Evaluation note* Diagnosis Malignant neoplasm metastatic to bone (HCC)- Primary Secondary malignant neoplasm of bone and bone marrow Malignant neoplasm of lower-inner quadrant of right breast of female, estrogen receptor positive (HCC) Malignant neoplasm metastatic to lung, unspecified laterality (HCC) HER2-positive carcinoma of breast (HCC) [facility] Diagnosis Malignant neoplasm of lower-inner quadrant of right breast of female, estrogen receptor positive (HCC)- Primary [facility] Diagnosis Malignant neoplasm of lower-inner quadrant [...] therapeutic drug monitoring [facility] Diagnosis HER2-positive carcinoma of breast [...] both lungs (HCC) [facility] Diagnosis Malignant neoplasm of lower-inner [...] breast (HCC) [facility] Diagnosis Malignant neoplasm of lower-inner quadrant of right breast of female, estrogen receptor positive (HCC)- Primary [facility] Diagnosis Malignant neoplasm of lower-inner quadrant of right breast of female, estrogen receptor positive (HCC)- Primary Malignant neoplasm metastatic to lung, unspecified laterality (HCC) Malignant neoplasm metastatic to bone (HCC) 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) Malignant neoplasm metastatic to both lungs (HCC) [facility]* Diagnosis History of thyroid nodule Personal history of other endocrine, metabolic, and immunity disorders [facility] Diagnosis Malignant neoplasm of lower-inner quadrant of right breast of female, estrogen receptor positive (HCC) Malignant neoplasm metastatic to bone (HCC) Secondary malignant neoplasm of bone and bone marrow Malignant neoplasm metastatic to both lungs (HCC) [facility] Diagnosis Malignant neoplasm of lower-inner quadrant of right breast of female, estrogen receptor positive (HCC) Malignant neoplasm metastatic to lung, unspecified laterality (HCC) Malignant neoplasm metastatic to bone (HCC) 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) Malignant neoplasm metastatic to both lungs (HCC) [facility] Diagnosis Malignant neoplasm of lower-inner quadrant of right breast of female, estrogen receptor positive (HCC)- Primary Malignant neoplasm metastatic to bone (HCC) 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 [facility]* Diagnosis Malignant neoplasm of lower-inner quadrant of right breast of female, estrogen receptor positive (HCC)- Primary Malignant neoplasm metastatic to lung, unspecified laterality (HCC) Malignant neoplasm metastatic to bone (HCC) 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) [facility] noteNo assessment information [facility] Work Phone: Evaluation note* Diagnosis Routine general medical examination at health care facility- Primary Routine general medical examination at a health care facility Malignant neoplasm metastatic to both lungs Bronchitis Bronchitis, not specified as acute or chronic History of right breast cancer Heart disease Unspecified heart disease documented in this encounter [facility] Work Phone: Evaluation note* Diagnosis Malignant neoplasm of lower-inner quadrant of right breast of female, estrogen receptor positive (HCC)- Primary HER2-positive carcinoma of breast (HCC) Malignant neoplasm metastatic to lung, unspecified laterality (HCC) [facility] Diagnosis Malignant neoplasm of lower-inner quadrant of right breast of female, estrogen receptor positive (HCC)- Primary HER2-positive carcinoma of breast (HCC) Malignant neoplasm metastatic to bone (HCC) Secondary malignant neoplasm of bone and bone marrow [facility] Diagnosis Malignant neoplasm of lower-inner quadrant of right breast of female, estrogen receptor positive (HCC)- Primary Malignant neoplasm metastatic to lung, unspecified laterality (HCC) Malignant neoplasm metastatic to bone (HCC) 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) [facility] Diagnosis Malignant neoplasm of lower-inner quadrant of right breast of female, estrogen receptor positive (HCC)- Primary Malignant neoplasm metastatic to lung, unspecified laterality (HCC) Malignant neoplasm metastatic to bone (HCC) 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) Malignant neoplasm metastatic to both lungs (HCC) [facility] Diagnosis Malignant neoplasm of lower-inner quadrant of right breast of female, estrogen receptor positive (HCC)- Primary Malignant neoplasm metastatic to bone (HCC) Secondary malignant neoplasm of bone and bone marrow Malignant neoplasm metastatic to lung, unspecified laterality (HCC) [facility] Diagnosis Malignant neoplasm of lower-inner quadrant of right breast of female, estrogen receptor positive (HCC)- Primary Malignant neoplasm metastatic to lung, unspecified laterality (HCC) Malignant neoplasm metastatic to bone (HCC) 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) [facility] Diagnosis Malignant neoplasm of lower-inner [...] both lungs (HCC) [facility] Diagnosis Malignant neoplasm of lower-inner quadrant of right breast of female, estrogen receptor positive (HCC)- Primary Malignant neoplasm metastatic to lung, unspecified laterality (HCC) Malignant neoplasm metastatic to bone (HCC) 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) [facility] Diagnosis Malignant neoplasm of lower-inner quadrant of right breast of female, estrogen receptor positive (HCC)- Primary HER2-positive carcinoma of breast (HCC) Malignant neoplasm metastatic to bone (HCC) Secondary malignant neoplasm of bone and bone marrow Malignant neoplasm metastatic to both lungs (HCC) [facility] Diagnosis Malignant neoplasm of lower-inner quadrant of right breast of female, estrogen receptor positive (HCC)- Primary HER2-positive carcinoma of breast (HCC) Malignant neoplasm metastatic to bone (HCC) Secondary malignant neoplasm of bone and bone marrow [facility] Diagnosis Malignant neoplasm of lower-inner quadrant of right breast of female, estrogen receptor positive (HCC)- Primary HER2-positive carcinoma of breast (HCC) Malignant neoplasm metastatic to bone (HCC) Secondary malignant neoplasm of bone and bone marrow Malignant neoplasm metastatic to both lungs (HCC) 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, unspecified [facility] Diagnosis Malignant neoplasm of lower-inner quadrant of right breast of female, estrogen receptor positive (HCC)- Primary Malignant neoplasm metastatic to lung, unspecified laterality (HCC) Malignant neoplasm metastatic to bone (HCC) 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) documented in this encounter [facility] for referral (narrative)* Diagnostic Procedure Only (Routine) - Closed Specialty Diagnoses / Procedures Referred By Contac t Referred To Contact MOLECULAR & FUNCTIONAL IMAGING Diagnoses Malignant neoplasm of lower-inner quadrant of right breast of female, estrogen receptor positive (HCC) Bone metastases (HCC) Procedures NM PET/CT SKULL-THIGH INITIAL PET IMAGING CT ATTENUATION SKULL BASE MID-THIGH Rip Rivers DO [address] [place] [address] Molecular & Functional Imaging [address] [place] [address] Referral ID Status Reason Start Date Expiration Date V isits Requested Visits Authorized [id number] Closed Auto-Generate d Referral 08/12/2021 09/11/2022 1 1 [facility] for referral (narrative)* Diagnostic Procedure Only (Routine) - Authorized Specialty Diagnoses / Procedures Referred By Contac t Referred To Contact US IMAGING Diagnoses Thyroid nodule Procedures US THYROID/PARATHYROID US SOFT TISSUE HEAD & NECK REAL TIME IMGE DOCM Rip Rivers, DO [address] [place] [address] Us Imaging Referral ID Status Reason Start Date Expiration Date Visits Requested Visits Authorized [id number] Authorized Auto-Generat ed Referral 09/02/2021 10/02/2022 1 1 [facility] for referral (narrative)* Diagnostic Procedure Only (Routine) - Closed Specialty Diagnoses / Procedures Referred By Contac t Referred To Contact US IMAGING Diagnoses Thyroid nodule Procedures US THYROID/PARATHYROID US SOFT TISSUE HEAD & NECK REAL TIME IMGE DOCM Rip Rivers, DO [address] [place] [address] Us Imaging Referral ID Status Reason Start Date Expiration Date V isits Requested Visits Authorized [id number] Closed Auto-Generate d Referral 09/02/2021 10/02/2022 1 1 [facility] for referral (narrative)* Outpatient Procedure (Routine) [...] REC COMP Rip Rivers, DO [address] [place] [address] [facility] [place] [facility] [place] [facility] [address] [address] Referral ID Status Reason Start Date Expiration Date Visits Requested Visits Authorized [id number] Pending Review Auto-Generat ed Referral 01/07/2022 01/07/2023 1 1 [facility] for referral (narrative)* Outpatient Procedure (Routine) - Pending Review Specialty Diagnoses / Procedures Referred By Contac t Referred To Contact [facility] [place] Diagnoses Malignant neoplasm of lower-inner quadrant of right breast of female, estrogen receptor positive (HCC) Bone metastases (HCC) Encounter for monitoring cardiotoxic drug therapy Procedures ECHO ECHO TTHRC R-T 2D W/WOM-MODE COMPL SPEC&COLR D Caity Cote APRN.[employer] [address] [place] [address] [facility] [place] [place] [facility] [place] [id number] Referral ID Status Reason Start Date Expiration Date Visits Requested Visits Authorized [id number] Pending Review Auto-Generat ed Referral 04/14/2022 04/14/2023 1 1 * MRI/CT (Routine) - Pending Review Specialty Diagnoses / Procedures Referred By Carmen moore Referred To Contact CT IMAGING Diagnoses Malignant neoplasm of lower-inner quadrant of right breast of female, estrogen receptor positive (HCC) Bone metastases (HCC) Procedures CT CHEST W IVCON DIAGNOSTIC COMPUTED TOMOGRAPHY THORAX W/CONTRAST Caity Cote APRN.[employer] [address] [place] [address] Ct Imaging Referral ID Status Reason Start Date Expiration Date Visits Requested Visits Authorized [id number] Pending Review Auto-Generat ed Referral 04/14/2022 05/14/2023 1 1 * MRI/CT (Routine) - Pending Review Specialty Diagnoses / Procedures Referred By Contac t Referred To Contact CT IMAGING Diagnoses Malignant neoplasm of lower-inner quadrant of right breast of female, estrogen receptor positive (HCC) Bone metastases (HCC) Procedures CT ABD/PEL W IVCON CT ABD & PELVIS W/CONTRAST Caity Cote APRN.[employer] [address] [place] [address] Ct Imaging Referral ID Status Reason Start Date Expiration Date Visits Requested Visits Authorized [id number] Pending Review Auto-Generat ed Referral 04/14/2022 05/14/2023 [address] [facility] for referral (narrative)* Outpatient Procedure [...] 2D W/WOM-MODE COMPL SPEC&COLR D Caity Cote APRN.[employer] [address] [place] [address] [facility] [place] [address] [place] [address] Referral ID Status Reason Start Date Expiration Date Visits Requested Visits Authorized [id number] Pending Review Auto-Generat ed Referral 06/15/2022 06/15/2023 [address] [facility] for referral (narrative)* Outpatient Procedure (Routine) - Pending Review Specialty Diagnoses / Procedures Referred By Conttio t Referred To Contact [facility] [place] Diagnoses Chemotherapy-induced cardiomyopathy (HCC) Procedures ECHO ECHO TTHRC R-T 2D W/WOM-MODE COMPL SPEC&COLR D Rip Rivers DO [address] [place] [address] [facility] [place] [address] [facility] [place] [address] Referral ID Status Reason Start Date Expiration Date Visits Requested Visits Authorized [id number] Pending Review Auto-Generat ed Referral 10/20/2022 10/20/2023 1 1 [facility] for referral (narrative)* Diagnostic Procedure Only (Routine) - Closed Specialty Diagnoses / Procedures Referred By Contac t Referred To Contact XR IMAGING Diagnoses Chronic left sacroiliac pain Procedures XR SACROILIAC JOINTS 2V AP PELVIS/FERGUESON RADIOLOGIC EXAMINATION SACROILIAC JNTS <3 VIEWS Rip Rivers, DO [address] [place] [address] Xr Imaging Referral ID Status Reason Start Date Expiration Date V isits Requested Visits Authorized [id number] Closed Auto-Generate d Referral 11/10/2022 12/10/2023 1 1 * Diagnostic Procedure Only (Routine) - Closed Specialty Diagnoses / Procedures Referred By Contac t Referred To Contact XR IMAGING Diagnoses Chronic left sacroiliac pain Procedures XR LUMBAR LIMITED 2V AP/LAT RADEX SPINE LUMBOSACRAL 2/3 VIEWS Rip Rivers, DO [address] [place] [address] Xr Imaging Referral ID Status Reason Start Date Expiration Date V isits Requested Visits Authorized [id number] Closed Auto-Generate d Referral 11/10/2022 12/10/2023 1 1 [facility] for referral (narrative)* Diagnostic Procedure Only (Routine) - Authorized Specialty Diagnoses / Procedures Referred By Contac t Referred To Contact BR IMAGING Diagnoses Abnormal mammogram Procedures US BREAST LTD LT US BREAST UNI REAL TIME WITH IMAGE LIMITED Rip Rivers DO [address] [place] [address] Br Imaging [address] [place] [address] Referral ID Status Reason Start Date Expiration Date Visits Requested Visits Authorized [id number] Authorized Auto-Generat ed Referral 08/24/2022 09/23/2023 1 1 [facility] for referral (narrative)* Outpatient Procedure (Routine) [...] D Rip Rivers DO [address] [place] [address] [facility] [place] [place] [facility] [place] [address] [facility] [place] [address] Referral ID Status Reason Start Date Expiration Date Visits Requested Visits Authorized [id number] Pending Review Auto-Generat ed Referral 12/22/2022 12/22/2023 [...] W/CONTRAST Rip Rivers DO [address] [place] [address] Ct Imaging Referral ID Status Reason Start Date Expiration Date Visits Requested Visits Authorized [id number] Authorized Auto-Generat ed Referral 12/22/2022 01/21/2024 1 [...] PELVIS W/CONTRAST Rip Rivers, DO [address] [facility] [place] [place] [address] Ct Imaging Referral ID Status Reason Start Date Expiration Date Visits Requested Visits Authorized [id number] Authorized Auto-Generat ed Referral 12/22/2022 01/21/2024 1 1 [facility] for referral (narrative)* Diagnostic Procedure Only (Routine) - Closed Specialty Diagnoses / Procedures Referred By Carmen moore Referred To Contact BR IMAGING Diagnoses Encounter for screening mammogram for malignant neoplasm of breast Procedures MAXIM SCREENING W OMI SCREENING DIGITAL BREAST TOMOSYNTHESIS BI SCREENING MAMMOGRAPHY BI 2-VIEW BREAST INC CAD Rip Rivers, DO [address] [place] [address] Br Imaging [address] [place] [address] Referral ID Status Reason Start Date Expiration Date V isits Requested Visits Authorized [id number] Closed Auto-Generate d Referral 07/06/2022 08/05/2023 1 1 [facility] for referral (narrative)* Diagnostic Procedure Only (Routine) - Closed Specialty Diagnoses / Procedures Referred By Carmen moore Referred To Contact US IMAGING Diagnoses Multiple thyroid nodules Procedures US THYROID/PARATHYROID US SOFT TISSUE HEAD & NECK REAL TIME IMGE DOCM Rip Rivers, DO [address] [facility] [place] [place] [address] [place] [id number] Referral ID Status Reason Start Date Expiration Date V isits Requested Visits Authorized [id number] Closed Auto-Generate d Referral 03/16/2023 04/14/2024 1 1 [facility] for referral (narrative)* Diagnostic Procedure Only (Routine) - Closed Specialty Diagnoses / Procedures Referred By Contac t Referred To Contact XR IMAGING Diagnoses Chronic left sacroiliac pain Procedures XR SACROILIAC JOINTS 2V AP PELVIS/FERGUESON RADIOLOGIC EXAMINATION SACROILIAC JNTS <3 VIEWS Rip Rivers DO [address] [place] [address] [place] [address] Referral ID Status Reason Start Date Expiration Date V isits Requested Visits Authorized [id number] Closed Auto-Generate d Referral 11/10/2022 12/10/2023 1 1 * Diagnostic Procedure Only (Routine) - Closed Specialty Diagnoses / Procedures Referred By Contac t Referred To Contact XR IMAGING Diagnoses Chronic left sacroiliac pain Procedures XR LUMBAR LIMITED 2V AP/LAT RADEX SPINE LUMBOSACRAL 2/3 VIEWS Rip Rivers DO [address] [place] [address] [place] [address] Referral ID Status Reason Start Date Expiration Date V isits Requested Visits Authorized [id number] Closed Auto-Generate d Referral 11/10/2022 12/10/2023 1 1 [facility] for referral (narrative)* Outpatient Procedure (Routine) - Pending Review Specialty Diagnoses / Procedures Referred By Contac t Referred To Contact [facility] Diagnoses Malignant neoplasm metastatic to both lungs (HCC) Encounter for monitoring cardiotoxic drug therapy Procedures ECHO ECHO TTHRC R-T 2D W/WOM-MODE COMPL SPEC&COLR D Rip Rivers DO [address] [place] [address] [facility] [place] [address] [place] [address] Referral ID Status Reason Start Date Expiration Date Visits Requested Visits Authorized [id number] Pending Review Auto-Generat ed Referral 04/25/2024 [address] [facility] for referral (narrative)* Diagnostic Procedure Only (Routine) [...] MID-THIGH Rip Rivers DO [address] [place] [address] Molecular & Functional Imaging [address] [place] [address] Referral ID Status Reason Start Date Expiration Date Visits Requested Visits Authorized [id number] Authorized Auto-Generat ed Referral 08/10/2023 09/08/2024 [address] [facility] for referral (narrative)* Diagnostic Procedure Only (Routine) - Authorized Specialty Diagnoses / Procedures Referred By Contac t Referred To Contact US IMAGING Diagnoses RUQ pain Procedures US ABD RIGHT UPPER QUADRANT US ABDOMINAL REAL TIME W/IMAGE LIMITED Rip Rivers DO [address] [place] [address] [place] [address] Referral ID Status Reason Start Date Expiration Date Visits Requested Visits Authorized [id number] Authorized Auto-Generat ed Referral 08/30/2023 2024 1 1 [facility] for referral (narrative)* Outpatient Procedure (Routine) - Pending Review Specialty Diagnoses / Procedures Referred By Contac t Referred To [facility] Diagnoses Encounter for monitoring cardiotoxic drug therapy Procedures ECHO ECHO TTHRC R-T 2D W/WOM-MODE COMPL SPEC&COLR D Rip Rivers DO [address] [place] [address] [facility] [place] [address] [place] [address] Referral ID Status Reason Start Date Expiration Date Visits Requested Visits Authorized [id number] Pending Review Auto-Generat ed Referral 09/21/2023 09/20/2024 1 1 [facility] for referral (narrative)* Outpatient Procedure (Routine) - Pending Review Specialty Diagnoses / Procedures Referred By Contac t Referred To Contact [facility] [place] Diagnoses Chemotherapy-induced cardiomyopathy (HCC) Encounter for monitoring cardiotoxic drug therapy Procedures ECHO ECHO TTHRC R-T 2D W/WOM-MODE COMPL SPEC&COLR D Rip Rivers DO [address] [place] [address] [facility] [address] [place] [address] Referral ID Status Reason Start Date Expiration Date Visits Requested Visits Authorized [id number] Pending Review Auto-Generat ed Referral 11/23/2023 11/22/2024 1 1 [facility] for referral (narrative)* Consultation (Routine) - Authorized Specialty Diagnoses / Procedures Referred By Contac t Referred To Contact Primary Care Procedures Follow Up In Primary Care - Established Williams Farrell DO [address] [facility] [place] [address] Referral ID Status Reason Start Date Expiration Date V isits Requested Visits Authorized [id number] Authorized 06/16/2023 06/15/2024 1 1 [facility] Work Phone: Reason for referral (narrative)* Outpatient Procedure (Routine) - New Request Specialty Diagnoses / Procedures Referred By Contac t Referred To Contact [facility] [place] Diagnoses Encounter for monitoring cardiotoxic drug therapy Chemotherapy induced cardiomyopathy (HCC) Procedures ECHO ECHO TTHRC R-T 2D W/WOM-MODE COMPL SPEC&COLR D Rip Rivers DO [address] [place] [address] [facility] [place] [address] [place] [address] Referral ID Status Reason Start Date Expiration Date Visits Requested Visits Authorized [id number] New Request Auto-Generat ed Referral 01/06/2024 01/05/2025 1 1 * Outpatient Procedure (Routine) - New Request Specialty Diagnoses / Procedures Referred By Carmen moore Referred To Contact [facility] Diagnoses Encounter for monitoring cardiotoxic drug therapy Procedures ECHO ECHO TTHRC R-T 2D W/WOM-MODE COMPL SPEC&COLR D Rip Rivers DO [address] [place] [address] [facility] [address] [place] [address] Referral ID Status Reason Start Date Expiration Date Visits Requested Visits Authorized [id number] New Request Auto-Generat ed Referral 01/06/2024 01/04/2025 1 1 [facility] for referral (narrative)* Outpatient Procedure (Routine) - New Request Specialty Diagnoses / Procedures Referred By Carmen moore Referred To Contact [facility] Diagnoses Chemotherapy induced cardiomyopathy (HCC) Encounter for monitoring cardiotoxic drug therapy Procedures CARDIO ONCOLOGY ECHO ECHO TTHRC R-T 2D W/WOM-MODE COMPL SPEC&COLR D Rip Rivers DO [address] [facility] [place] [address] [facility] [address] [place] [address] Referral ID Status Reason Start Date Expiration Date Visits Requested Visits Authorized [id number] New Request Auto-Generat ed Referral 01/11/2024 01/10/2025 1 1 [facility] for [facility] Reason for visit Narrative* Diagnostic Procedure Only (Routine) - Closed Specialty Diagnoses / Procedures Referred By Carmen moore Referred To Contact MOLECULAR & FUNCTIONAL [facility]AGING Diagnoses Malignant neoplasm of lower-inner quadrant of right breast of female, estrogen receptor positive (HCC) Bone metastases (HCC) Procedures NM PET/CT SKULL-THIGH INITIAL PET IMAGING CT ATTENUATION SKULL BASE MID-THIGH Rip Rivers, DO [address] [place] [address] Molecular & Functional Imaging [address] [place] [address] Referral ID Status Reason Start Date Expiration Date V isits Requested Visits Authorized [id number] Closed Auto-Generate d Referral 08/12/2021 09/11/2022 1 1 [facility] for visit Narrative* Diagnostic Procedure Only (Routine) - Closed Specialty Diagnoses / Procedures Referred By Carmen moore Referred To Contact BR IMAGING Diagnoses Abnormal mammogram Procedures MAXIM DIAGNOSTIC LT DIAGNOSTIC MAMMOGRAPHY COMPUTER-AIDED DETCJ UNI Rip Rivers, DO [address] [place] [address] [facility] [address] [place] [address] Referral ID Status Reason Start Date Expiration Date V isits Requested Visits Authorized [id number] Closed Auto-Generate d Referral 08/24/2022 09/23/2023 1 1 [facility] for visit Narrative* Diagnostic Procedure Only (Routine) - Closed Specialty Diagnoses / Procedures Referred By Carmen moore Referred To Contact BR IMAGING Diagnoses Encounter for screening mammogram for malignant neoplasm of breast Procedures MAXIM SCREENING W OMI SCREENING DIGITAL BREAST TOMOSYNTHESIS BI SCREENING MAMMOGRAPHY BI 2-VIEW BREAST INC CAD Rip Rivers, DO [address] [place] [address] [facility] [address] [place] [address] Referral ID Status Reason Start Date Expiration Date V isits Requested Visits Authorized [id number] Closed Auto-Generate d Referral 07/06/2022 08/05/2023 1 1 [facility] for visit Narrative* Diagnostic Procedure Only (Routine) - Closed Specialty Diagnoses / Procedures Referred By Contac t Referred To Contact US IMAGING Diagnoses Multiple thyroid nodules Procedures US THYROID/PARATHYROID US SOFT TISSUE HEAD & NECK REAL TIME IMGE DOCM Rip Rivers, DO [address] [facility] [place] [address] [place] [address] Referral ID Status Reason Start Date Expiration Date V isits Requested Visits Authorized [id number] Closed Auto-Generate d Referral 03/16/2023 04/14/2024 1 1 [facility] for visit Narrative* Diagnostic Procedure Only (Routine) - Closed Specialty Diagnoses / Procedures [facility] Referred To Contact X[facility] Diagnoses Chronic left sacroiliac pain Procedures XR SACROILIAC JOINTS 2V AP PELVIS/FERGUESON RADIOLOGIC EXAMINATION SACROILIAC JNTS <3 VIEWS Rip Rivers, DO [address] [place] [address] [place] [id number] Referral ID Status Reason Start Date Expiration Date V isits Requested Visits Authorized [id number] Closed Auto-Generate d Referral 11/10/2022 12/10/2023 1 1 [facility] for visit Narrative* Diagnostic Procedure Only (Routine) [...] BASE MID-THIGH Rip Rivers, DO [address] [place] [address] Molecular & Functional Imaging [address] [place] [address] Referral ID Status Reason Start Date Expiration Date V isits Requested Visits Authorized [id number] Closed Auto-Generate d Referral 08/10/2023 09/08/2024 1 1 [facility] for visit Narrative* MRI/CT (Routine) - Closed Specialty Diagnoses / Procedures [facility] Ref[facility] To Contact CT [facility] Diagnoses Malignant neoplasm of lower-inner quadrant of right breast of female, estrogen receptor positive (HCC) Malignant neoplasm metastatic to bone (HCC) Malignant neoplasm metastatic to both lungs (HCC) Procedures CT ABD/PEL W IVCON CT ABD & PELVIS W/CONTRAST Rip Rivers, DO [address] [place] [address] Phone: tel: fax: [place] [address] Referral ID Status Reason Start Date Expiration Date V isits Requested Visits Authorized [id number] Closed Auto-Generate d Referral 08/15/2024 09/14/2025 1 1 [facility] for visit Narrative* [place] Prior Authorization (Routine) - Authorized Specialty Diagnoses / Procedures Referred By Conttio t Referred To Contact Diagnoses Malignant neoplasm of lower-inner quadrant of right breast of female, estrogen receptor positive (HCC) Malignant neoplasm metastatic to lung, unspecified laterality (HCC) Malignant neoplasm metastatic to bone (HCC) HER2-positive carcinoma of breast (HCC) Rip Rivers, DO [address] [place] [address] Phone: tel: fax: Hematology/Oncology [address] [place] [address] Phone: tel: fax: Referral ID Status Reason Start Date Expiration Date V isits Requested Visits Authorized [id number] Authorized 08/30/2023 11/28/2023 99 99 [facility] Advance Directives No Advanced Directives Records FoundDocuments on File Type Date Recorded 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 Advance Directive(s) 06/04/2019 9:16 AM Advance Directive(s) 03/25/2016 10:44 AM Documents on File Type Date Recorded 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 Advance Directive(s) 06/04/2019 9:16 AM Advance Directive(s) 03/25/2016 10:44 AM Advance Directive Response Recorded Date/ Time Advance Directives No February 2:40pm Living Will No May 01 10:24am Power of Eyeglass Frames Inspector No May 01, 2019 10:24am Documents on File Type Date Recorded 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 Advance Directive(s) 06/04/2019 9:16 AM Documents on File Type Date Recorded 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 Advance Directive(s) 06/04/2019 9:16 AM Advance Directive Response Recorded Date/ Time Advance Directives No February 1:40pm Living Will No May 01, 9:24am Power of Eyeglass Frames Inspector No May 01, 2019 9:24am Advance Directive Response Recorded Date/ Time Name of Medical Power of Eyeglass Frames Inspector tanvi/ February 16, 2023 6:54pm Advance Directives No February 2:40pm Living Will Yes February 16, 2023 6:54pm Power of Eyeglass Frames Inspector Yes February 6:54pm Advance Directive Response Recorded Date/ Time Name of Medical Power of Eyeglass Frames Inspector Tanvi Christiansen February 17, 2023 1:43am Advance Directives No February 2:40pm Living Will Yes February 17, 2023 1:43am Power of Eyeglass Frames Inspector Yes February 1:43am Advance Directive Response Recorded Date/ Time Name of Medical Power of Eyeglass Frames Inspector Tanvi Christiansen February 17, 2023 12:43am Advance Directives No February 1:40pm Living Will Yes February 17, 2023 12:43am Power of Eyeglass Frames Inspector Yes February 12:43am Advance Directive Response Recorded Date/ Time Name of Medical Power of Eyeglass Frames Inspector August 16, 2023 10:53pm Advance Directives No February 2:40pm Living Will Yes August 16, 2023 10:53pm Power of Eyeglass Frames Inspector Yes August 15 10:53pm Advance Directive Response [...] over 15 Minutes, ONCE, 1 dose, On [facility] 10/01/21 at 0900, Refrigerate. New Bag/Syringe/Bottle 10/01/2021 9:13 AM EDT 10 mg fam-trastuzumab deruxtecan-nxki 467.64 mg in D5W 100 mL (ENHERTU) 467.64 mg (5.4 mg/kg/dose 86.6 kg Treatment plan Recorded weight), INTRAVENOUS, Administer over 30 Minutes, ONCE, 1 dose, On [facility] 10/01/21 at 0900, Approx Total Volume - [...] over 30 Minutes, ONCE, 1 dose, On [facility] 10/22/21 at 1030, exp immediate use (room temp) Hazardous Chemotherapy Drug: Use appropriate PPE. Administer with 0.2 micron filter. Flush line with D5W before and after administration. Refrigerate - Protect from Light New Bag/Syringe/Bottle 10/22/2021 10:44 AM EDT 467.64 mg palonosetron 0.25 mg injection (ALOXI) 0.25 mg, INTRAVENOUS, ONCE, 1 dose, On [facility] 10/22/21 at 1000, Flush IV line with NS prior to and following administration. Given 10/22/2021 10:02 AM EDT 0.25 mg Inactive Administered Medications - up to 3 most recent administrations Medication Order MAR Action Action Date Dose Rate Site zoledronic wa-ikbyjqyq-5.9NaCl 4 mg iv piggyback 100 mL (ZOMETA) [...] 02/04/2022 11:00 AM EDT 0.25 mg zoledronic ar-pmhwojhk-1.9NaCl 4 mg iv piggyback 100 mL (ZOMETA) [...] 05/06/2022 10:55 AM EST 0.25 mg zoledronic tt-qdlczkyt-6.9NaCl 4 mg iv piggyback 100 mL (ZOMETA) [...] 07/29/2022 9:30 AM EST 0.25 mg zoledronic ph-ljrcnuzr-9.9NaCl 4 mg iv piggyback 100 mL (ZOMETA) [...] over 30 Minutes, ONCE, 1 dose, On [facility] 01/13/23 at 1300, exp 1630 01/13/23 (room [...] 01/13/2023 1:19 PM EDT 0.25 mg zoledronic fp-nvnaqkka-0.9NaCl 4 mg iv piggyback 100 mL (ZOMETA) [...] DIAGNOSTIC COMPUTED TOMOGRAPHY THORAX W/CONTRAST Caity Cote, EREN.[employer] [address] [place] [address] Ct Imaging Referral ID Status Reason Start Date Expiration Date Visits Requested Visits Authorized [id number] Authorized Auto-Generat ed Referral 10/21/2021 11/20/2022 1 [...] CT ABD & PELVIS W/CONTRAST Caity Cote, EREN.[employer] [address] [place] [address] Ct Imaging Referral ID Status Reason Start Date Expiration Date Visits Requested Visits Authorized [id number] Authorized Auto-Generat ed Referral 10/21/2021 11/20/2022 1 1 Specialty Diagnoses / Procedures Referred By Contac t Referred To Contact [facility] Diagnoses Malignant neoplasm of lower-inner quadrant of right breast of female, estrogen receptor positive (HCC) Bone metastases (HCC) Skin, 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) Procedures ECHO ECHO TTHRC R-T 2D W/WOM-MODE COMPL SPEC&COLR D Caity Cote APRN.[employer] [address] [place] [address] [facility] [place] [address] [place] [address] Referral ID Status Reason Start Date Expiration Date Visits Requested Visits Authorized [id number] Pending Review Auto-Generat ed Referral 10/21/2021 10/21/2022 1 1 Referral ID Status Reason Start Date Expiration Date V isits Requested Visits Authorized [id number] Closed Auto-Generate d Referral 10/21/2021 11/20/2022 1 1 Referral ID Status Reason Start Date Expiration Date V isits Requested Visits Authorized [id number] Closed Auto-Generate d Referral 10/21/2021 11/20/2022 1 1 Specialty Diagnoses / Procedures Referred By Contac t Referred To Contact CT IMAGING Diagnoses Malignant neoplasm of lower-inner quadrant of right breast of female, estrogen receptor positive (HCC) Bone metastases (HCC) Malignant neoplasm metastatic to both lungs (HCC) Skin, 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) Procedures CT CHEST W IVCON DIAGNOSTIC COMPUTED TOMOGRAPHY THORAX W/CONTRAST Caity Cote APRN.[employer] [address] [place] [address] Ct Imaging Referral ID Status Reason Start Date Expiration Date Visits Requested Visits Authorized [id number] Authorized Auto-Generat ed Referral 12/23/2021 01/22/2023 1 1 Specialty Diagnoses / Procedures Referred By Contac t Referred To Contact CT IMAGING Diagnoses Malignant neoplasm of lower-inner quadrant of right breast of female, estrogen receptor positive (HCC) Bone metastases (HCC) Malignant neoplasm metastatic to both lungs (HCC) Skin, 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) Procedures CT ABD/PEL W IVCON CT ABD & PELVIS W/CONTRAST Caity Cote, EREN.[employer] [address] [place] [address] Ct Imaging Referral ID Status Reason Start Date Expiration Date Visits Requested Visits Authorized [id number] Authorized Auto-Generat ed Referral 12/23/2021 01/22/2023 1 1 Referral ID Status Reason Start Date Expiration Date V isits Requested Visits Authorized [id number] Closed Auto-Generate d Referral 12/23/2021 01/22/2023 1 1 Referral ID Status Reason Start Date Expiration Date V isits Requested Visits Authorized [id number] Closed Auto-Generate d Referral 12/23/2021 01/22/2023 1 1 Specialty Diagnoses / Procedures Referred By Contac t Referred To Contact CT IMAGING Diagnoses Malignant neoplasm of lower-inner quadrant of right breast of female, estrogen receptor positive (HCC) Bone metastases (HCC) Malignant neoplasm metastatic to both lungs (HCC) Procedures CT CHEST W IVCON DIAGNOSTIC COMPUTED TOMOGRAPHY THORAX W/CONTRAST Rip Rivers, DO [address] [place] [address] Ct Imaging Referral ID Status Reason Start Date Expiration Date Visits Requested Visits Authorized [id number] Authorized Auto-Generat ed Referral 07/06/2022 08/05/2023 1 1 Specialty Diagnoses / Procedures Referred By Contac t Referred To Contact CT IMAGING Diagnoses Malignant neoplasm of lower-inner quadrant of right breast of female, estrogen receptor positive (HCC) Bone metastases (HCC) Malignant neoplasm metastatic to both lungs (HCC) Procedures CT ABD/PEL W IVCON CT ABD & PELVIS W/CONTRAST Rip Rivers, DO [address] [place] [address] Ct Imaging Referral ID Status Reason Start Date Expiration Date Visits Requested Visits Authorized [id number] Authorized Auto-Generat ed Referral 07/06/2022 08/05/2023 1 1 Specialty Diagnoses / Procedures Referred By Contac t Referred To Contact BR IMAGING Diagnoses Encounter for screening mammogram for malignant neoplasm of breast Procedures MAXIM SCREENING W OMI SCREENING DIGITAL BREAST TOMOSYNTHESIS BI SCREENING MAMMOGRAPHY BI 2-VIEW BREAST INC CAD Rip Rivers, DO [address] [place] [address] Br Imaging [address] [place] [address] Referral ID Status Reason Start Date Expiration Date Visits Requested Visits Authorized [id number] Authorized Auto-Generat ed Referral 07/06/2022 08/05/2023 1 1 Referral ID Status Reason Start Date Expiration Date Visits Requested Visits Authorized [id number] Pending Review Auto-Generat ed Referral 07/30/2022 08/29/2023 1 1 Referral ID Status Reason Start Date Expiration Date Visits Requested Visits Authorized [id number] Pending Review Auto-Generat ed Referral 07/30/2022 08/29/2023 1 1 Specialty Diagnoses / Procedures Referred By Contac t Referred To Contact Diagnoses Malignant neoplasm metastatic to left lung (HCC) Procedures CT SIM PLANNING RADIATION ONCOLOGY THER RAD SIMULAJ-AIDED FIELD SETTING COMPLEX Meenu Garay MD, [address] [place] [address] Referral ID Status Reason Start Date Expiration Date Visits Requested Visits Authorized [id number] Pending Review PCP Requested Referral 02/09/2023 05/09/2023 1 1 Specialty Diagnoses / Procedures Referred By Contac t Referred To Contact CT IMAGING Diagnoses Malignant neoplasm metastatic to bone (HCC) Procedures CT CHEST WO IVCON DIAGNOSTIC COMPUTED TOMOGRAPHY THORAX W/O CNTRST Rip Rivers DO [address] [place] [address] [place] [address] Referral ID Status Reason Start Date Expiration Date Visits Requested Visits Authorized [id number] Authorized Auto-Generat ed Referral 02/23/2023 03/24/2024 1 1 Specialty Diagnoses / Procedures Referred By Contac t Referred To Contact CT IMAGING Diagnoses Malignant neoplasm metastatic to left lung (HCC) Procedures CT CHEST WO IVCON DIAGNOSTIC COMPUTED TOMOGRAPHY THORAX W/O CNTRST Meenu Garay MD, [address] [facility] [place] [address] [place] [address] Referral ID Status Reason Start Date Expiration Date Visits Requested Visits Authorized [id number] Authorized Auto-Generat ed Referral 04/28/2024 1 1 Referral ID Status Reason Start Date Expiration Date V isits Requested Visits Authorized [id number] Closed Auto-Generate d Referral 02/23/2023 03/24/2024 1 1 Specialty Diagnoses / Procedures Referred By Contac t Referred To Contact CT IMAGING Diagnoses Malignant neoplasm of lower-inner quadrant of right breast of female, estrogen receptor positive (HCC) Bone metastases Malignant neoplasm metastatic to both lungs (HCC) Procedures CT CHEST W IVCON DIAGNOSTIC COMPUTED TOMOGRAPHY THORAX W/CONTRAST Rip Rivers, DO [address] [facility] [address] [place] [address] Referral ID Status Reason Start Date Expiration Date V isits Requested Visits Authorized [id number] Closed Auto-Generate d Referral 07/30/2022 08/29/2023 1 1 Specialty Diagnoses / Procedures Referred By Contac t Referred To Contact CT IMAGING Diagnoses Malignant neoplasm of lower-inner quadrant of right breast of female, estrogen receptor positive (HCC) Bone metastases Malignant neoplasm metastatic to both lungs (HCC) Procedures CT ABD/PEL W IVCON CT ABD & PELVIS W/CONTRAST Rip Rivers, DO [address] [facility] [place] [address] [place] [address] Referral ID Status Reason Start Date Expiration Date V isits Requested Visits Authorized [id number] Closed Auto-Generate d Referral 07/30/2022 08/29/2023 1 1 Specialty Diagnoses / Procedures [facility] Referred To Contact [facility] Diagnoses Malignant neoplasm of lower-inner quadrant of right breast of female, estrogen receptor positive (HCC) 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) Malignant neoplasm metastatic to both lungs (HCC) Procedures CT CHEST W IVCON DIAGNOSTIC COMPUTED TOMOGRAPHY THORAX W/CONTRAST Rip Rivers, DO [address] [facility] [place] [address] [place] [address] Referral ID Status Reason Start Date Expiration Date V isits Requested Visits Authorized [id number] Closed Auto-Generate d Referral 12/22/2022 01/21/2024 1 1 Specialty Diagnoses / Procedures [facility] Referred To Contact CT [facility] Diagnoses Malignant neoplasm of lower-inner quadrant of right breast of female, estrogen receptor positive (HCC) 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) Malignant neoplasm metastatic to both lungs (HCC) Procedures CT ABD/PEL W IVCON CT ABD & PELVIS W/CONTRAST Rip Rivers, DO [address] [facility] [place] [place] [address] [place] [address] Referral ID Status Reason Start Date Expiration Date V isits Requested Visits Authorized [id number] Closed Auto-Generate d Referral 12/22/2022 01/21/2024 1 1 Referral ID Status Reason Start Date Expiration Date V isits Requested Visits Authorized [id number] Closed Auto-Generate d Referral 07/06/2022 08/05/2023 1 1 Referral ID Status Reason Start Date Expiration Date V isits Requested Visits Authorized [id number] Closed Auto-Generate d Referral 07/06/2022 08/05/2023 1 1 Specialty Diagnoses / Procedures Referred By Contac t Referred To Contact CT IMAGING Diagnoses Malignant neoplasm of lower-inner quadrant of right breast of female, estrogen receptor positive (HCC) Bone metastases Procedures CT CHEST W IVCON DIAGNOSTIC COMPUTED TOMOGRAPHY THORAX W/CONTRAST Caity Cote, ELECTRONICS SPECIALIST.[employer] [address] [place] [address] [place] [address] Referral ID Status Reason Start Date Expiration Date V isits Requested Visits Authorized [id number] Closed Auto-Generate d Referral 04/14/2022 05/14/2023 1 1 Specialty Diagnoses / Procedures Referred By Contac t Referred To Contact CT IMAGING Diagnoses Malignant neoplasm of lower-inner quadrant of right breast of female, estrogen receptor positive (HCC) Bone metastases Procedures CT ABD/PEL W IVCON CT ABD & PELVIS W/CONTRAST Caity Cote, ELECTRONICS SPECIALIST.[employer] [address] [place] [address] [place] [address] Referral ID Status Reason Start Date Expiration Date V isits Requested Visits Authorized [id number] Closed Auto-Generate d Referral 04/14/2022 05/14/2023 1 1 Specialty Diagnoses / Procedures Referred By Contac t Referred To Contact Diagnoses Secondary malignant neoplasm of right lung (HCC) Procedures CT SIM PLANNING RADIATION ONCOLOGY THER RAD SIMULAJ-AIDED FIELD SETTING COMPLEX Meenu Garay MD [address] [place] [address] Referral ID Status Reason Start Date Expiration Date Visits Requested Visits Authorized [id number] Pending Review PCP Requested Referral 09/27/2023 12/11/2023 1 1 Specialty Diagnoses / Procedures Referred By Contac t Referred To Contact CT IMAGING Diagnoses Secondary malignant neoplasm of right lung (HCC) Procedures CT CHEST WO IVCON DIAGNOSTIC COMPUTED TOMOGRAPHY THORAX W/O CNTRST Meenu Garay MD [address] [place] [address] [place] [address] Referral ID Status Reason Start Date Expiration Date Visits Requested Visits Authorized [id number] Pending Review Auto-Generat ed Referral 01/11/2024 11/26/2024 [...] DIAGNOSTIC COMPUTED TOMOGRAPHY THORAX W/CONTRAST Caity Cote APRN.[employer] [address] [place] [address] [place] [address] Referral ID Status Reason Start Date Expiration Date Visits Requested Visits Authorized [id number] Authorized Auto-Generat ed Referral 12/14/2023 01/12/2025 1 [...] CT ABD & PELVIS W/CONTRAST Caity Cote APRN.[employer] [address] [place] [address] [place] [address] Referral ID Status Reason Start Date Expiration Date Visits Requested Visits Authorized [id number] Authorized Auto-Generat ed Referral 12/14/2023 01/12/2025 1 1 Specialty Diagnoses / Procedures Referred By [facility] t Referred To Contact CT IMAGING Diagnoses Malignant neoplasm of lower-inner quadrant of right breast of female, estrogen receptor positive (HCC) Orthopnea Interstitial pulmonary disease (HCC) Procedures CT CHEST WO IVCON DIAGNOSTIC COMPUTED TOMOGRAPHY THORAX W/O CNTRST Rip Rivers, DO [address] [place] [address] [place] [address] Referral ID Status Reason Start Date Expiration Date V isits Requested Visits Authorized [id number] Closed Auto-Generate d Referral 01/04/2024 02/02/2025 1 [...] THORAX W/CONTRAST Rip Rivers, DO [address] [facility] [place] [address] [place] [address] Referral ID Status Reason Start Date Expiration Date Visits Requested Visits Authorized [id number] New Request Auto-Generat ed Referral 4 04/20/2025 1 1 Specialty Diagnoses / Procedures [facility] Referred To Contact CT IMAGING Diagnoses Malignant neoplasm of lower-inner quadrant of right breast of female, estrogen receptor positive (HCC) Malignant neoplasm metastatic to bone (HCC) Malignant neoplasm metastatic to both lungs (HCC) Procedures CT ABD/PEL W IVCON CT ABD & PELVIS W/CONTRAST Rip Rivers, DO [address] [place] [address] [place] [address] Referral ID Status Reason Start Date Expiration Date Visits Requested Visits Authorized [id number] New Request Auto-Generat ed Referral 04/20/2025 1 [...] right breast Chief Complaint Admit Date Other care home (current) drug therapy A pril 2024 1:41pm [...] or prosecute any alcohol or drug abuse patient.[facility] CampusIn the event this information is protected by the Federal Confidentiality of Alcohol and Drug Abuse Patient Records regulations: The Federal rules restrict any use of the information to criminally investigate or prosecute any alcohol or drug abuse patient.[facility] CampusIn the event this information is protected by the Federal Confidentiality of Alcohol and Drug Abuse Patient Records regulations: The Federal rules restrict any use of the information to criminally investigate or prosecute any alcohol or drug abuse patient.[facility] CampusIn the event this information is protected by the Federal Confidentiality of Alcohol and Drug Abuse Patient Records regulations: The Federal rules restrict any use of the information to criminally investigate or prosecute any alcohol or drug abuse patient.[facility] CampusIn the event this information is protected by the Federal Confidentiality of Alcohol and Drug Abuse Patient Records regulations: The Federal rules restrict any use of the information to criminally investigate or prosecute any alcohol or drug abuse patient.[facility] CampusIn the event this information is protected by the Federal Confidentiality of Alcohol and Drug Abuse Patient Records regulations: The Federal rules restrict any use of the information to criminally investigate or prosecute any alcohol or drug abuse patient.[facility] CampusIn the event this information is protected by the Federal Confidentiality of Alcohol and Drug Abuse Patient Records regulations: The Federal rules restrict any use of the information to criminally investigate or prosecute any alcohol or drug abuse patient.[facility] CampusIn the event this information is protected by the Federal Confidentiality of Alcohol and Drug Abuse Patient Records regulations: The Federal rules restrict any use of the information to criminally investigate or prosecute any alcohol or drug abuse patient.[facility] CampusIn the event this information is protected by the Federal Confidentiality of Alcohol and Drug Abuse Patient Records regulations: The Federal rules restrict any use of the information to criminally investigate or prosecute any alcohol or drug abuse patient.[facility] CampusIn the event this information is protected by the Federal Confidentiality of Alcohol and Drug Abuse Patient Records regulations: The Federal rules restrict any use of the information to criminally investigate or prosecute any alcohol or drug abuse patient.[facility] CampusIn the event this information is protected by the Federal Confidentiality of Alcohol and Drug Abuse Patient Records regulations: The Federal rules restrict any use of the information to criminally investigate or prosecute any alcohol or drug abuse patient.[facility] CampusIn the event this information is protected by the Federal Confidentiality of Alcohol and Drug Abuse Patient Records regulations: The Federal rules restrict any use of the information to criminally investigate or prosecute any alcohol or drug abuse patient.[facility] CampusIn the event this information is protected by the Federal Confidentiality of Alcohol and Drug Abuse Patient Records regulations: The Federal rules restrict any use of the information to criminally investigate or prosecute any alcohol or drug abuse patient.[facility] CampusIn the event this information is protected by the Federal Confidentiality of Alcohol and Drug Abuse Patient Records regulations: The Federal rules restrict any use of the information to criminally investigate or prosecute any alcohol or drug abuse patient.[facility] CampusIn the event this information is protected by the Federal Confidentiality of Alcohol and Drug Abuse Patient Records regulations: The Federal rules restrict any use of the information to criminally investigate or prosecute any alcohol or drug abuse patient.[facility] CampusIn the event this information is protected by the Federal Confidentiality of Alcohol and Drug Abuse Patient Records regulations: The Federal rules restrict any use of the information to criminally investigate or prosecute any alcohol or drug abuse patient.[facility] CampusIn the event this information is protected by the Federal Confidentiality of Alcohol and Drug Abuse Patient Records regulations: The Federal rules restrict any use of the information to criminally investigate or prosecute any alcohol or drug abuse patient.[facility] CampusIn the event this information is protected by the Federal Confidentiality of Alcohol and Drug Abuse Patient Records regulations: The Federal rules restrict any use of the information to criminally investigate or prosecute any alcohol or drug abuse patient.[facility] CampusIn the event this information is protected by the Federal Confidentiality of Alcohol and Drug Abuse Patient Records regulations: The Federal rules restrict any use of the information to criminally investigate or prosecute any alcohol or drug abuse patient.[facility] CampusIn the event this information is protected by the Federal Confidentiality of Alcohol and Drug Abuse Patient Records regulations: The Federal rules restrict any use of the information to criminally investigate or prosecute any alcohol or drug abuse patient.[facility] CampusIn the event this information is protected by the Federal Confidentiality of Alcohol and Drug Abuse Patient Records regulations: The Federal rules restrict any use of the information to criminally investigate or prosecute any alcohol or drug abuse patient.[facility] CampusIn the event this information is protected by the Federal Confidentiality of Alcohol and Drug Abuse Patient Records regulations: The Federal rules restrict any use of the information to criminally investigate or prosecute any alcohol or drug abuse patient.[facility] CampusIn the event this information is protected by the Federal Confidentiality of Alcohol and Drug Abuse Patient Records regulations: The Federal rules restrict any use of the information to criminally investigate or prosecute any alcohol or drug abuse patient.[facility] CampusIn the event this information is protected by the Federal Confidentiality of Alcohol and Drug Abuse Patient Records regulations: The Federal rules restrict any use of the information to criminally investigate or prosecute any alcohol or drug abuse patient.[facility] CampusIn the event this information is protected by the Federal Confidentiality of Alcohol and Drug Abuse Patient Records regulations: The Federal rules restrict any use of the information to criminally investigate or prosecute any alcohol or drug abuse patient.[facility] CampusIn the event this information is protected by the Federal Confidentiality of Alcohol and Drug Abuse Patient Records regulations: The Federal rules restrict any use of the information to criminally investigate or prosecute any alcohol or drug abuse patient.[facility] CampusIn the event this information is protected by the Federal Confidentiality of Alcohol and Drug Abuse Patient Records regulations: The Federal rules restrict any use of the information to criminally investigate or prosecute any alcohol or drug abuse patient.[facility] CampusIn the event this information is protected by the Federal Confidentiality of Alcohol and Drug Abuse Patient Records regulations: The Federal rules restrict any use of the information to criminally investigate or prosecute any alcohol or drug abuse patient.[facility] CampusIn the event this information is protected by the Federal Confidentiality of Alcohol and Drug Abuse Patient Records regulations: The Federal rules restrict any use of the information to criminally investigate or prosecute any alcohol or drug abuse patient.[facility] CampusIn the event this information is protected by the Federal Confidentiality of Alcohol and Drug Abuse Patient Records regulations: The Federal rules restrict any use of the information to criminally investigate or prosecute any alcohol or drug abuse patient.[facility] CampusIn the event this information is protected by the Federal Confidentiality of Alcohol and Drug Abuse Patient Records regulations: The Federal rules restrict any use of the information to criminally investigate or prosecute any alcohol or drug abuse patient.[facility] CampusIn the event this information is protected by the Federal Confidentiality of Alcohol and Drug Abuse Patient Records regulations: The Federal rules restrict any use of the information to criminally investigate or prosecute any alcohol or drug abuse patient.[facility] CampusIn the event this information is protected by the Federal Confidentiality of Alcohol and Drug Abuse Patient Records regulations: The Federal rules restrict any use of the information to criminally investigate or prosecute any alcohol or drug abuse patient.[facility] CampusIn the event this information is protected by the Federal Confidentiality of Alcohol and Drug Abuse Patient Records regulations: The Federal rules restrict any use of the information to criminally investigate or prosecute any alcohol or drug abuse patient.[facility] CampusIn the event this information is protected by the Federal Confidentiality of Alcohol and Drug Abuse Patient Records regulations: The Federal rules restrict any use of the information to criminally investigate or prosecute any alcohol or drug abuse patient.[facility] CampusIn the event this information is protected by the Federal Confidentiality of Alcohol and Drug Abuse Patient Records regulations: The Federal rules restrict any use of the information to criminally investigate or prosecute any alcohol or drug abuse patient.[facility] CampusIn the event this information is protected by the Federal Confidentiality of Alcohol and Drug Abuse Patient Records regulations: The Federal rules restrict any use of the information to criminally investigate or prosecute any alcohol or drug abuse patient.[facility] CampusIn the event this information is protected by the Federal Confidentiality of Alcohol and Drug Abuse Patient Records regulations: The Federal rules restrict any use of the information to criminally investigate or prosecute any alcohol or drug abuse patient.[facility] CampusIn the event this information is protected by the Federal Confidentiality of Alcohol and Drug Abuse Patient Records regulations: The Federal rules restrict any use of the information to criminally investigate or prosecute any alcohol or drug abuse patient.[facility] CampusIn the event this information is protected by the Federal Confidentiality of Alcohol and Drug Abuse Patient Records regulations: The Federal rules restrict any use of the information to criminally investigate or prosecute any alcohol or drug abuse patient.[facility] CampusIn the event this information is protected by the Federal Confidentiality of Alcohol and Drug Abuse Patient Records regulations: The Federal rules restrict any use of the information to criminally investigate or prosecute any alcohol or drug abuse patient.[facility] CampusIn the event this information is protected by the Federal Confidentiality of Alcohol and Drug Abuse Patient Records regulations: The Federal rules restrict any use of the information to criminally investigate or prosecute any alcohol or drug abuse patient.[facility] CampusIn the event this information is protected by the Federal Confidentiality of Alcohol and Drug Abuse Patient Records regulations: The Federal rules restrict any use of the information to criminally investigate or prosecute any alcohol or drug abuse patient.[facility] CampusIn the event this information is protected by the Federal Confidentiality of Alcohol and Drug Abuse Patient Records regulations: The Federal rules restrict any use of the information to criminally investigate or prosecute any alcohol or drug abuse patient.[facility] CampusIn the event this information is protected by the Federal Confidentiality of Alcohol and Drug Abuse Patient Records regulations: The Federal rules restrict any use of the information to criminally investigate or prosecute any alcohol or drug abuse patient.[facility] CampusIn the event this information is protected by the Federal Confidentiality of Alcohol and Drug Abuse Patient Records regulations: The Federal rules restrict any use of the information to criminally investigate or prosecute any alcohol or drug abuse patient.[facility] CampusIn the event this information is protected by the Federal Confidentiality of Alcohol and Drug Abuse Patient Records regulations: The Federal rules restrict any use of the information to criminally investigate or prosecute any alcohol or drug abuse patient.[facility] CampusIn the event this information is protected by the Federal Confidentiality of Alcohol and Drug Abuse Patient Records regulations: The Federal rules restrict any use of the information to criminally investigate or prosecute any alcohol or drug abuse patient.[facility] CampusIn the event this information is protected by the Federal Confidentiality of Alcohol and Drug Abuse Patient Records regulations: The Federal rules restrict any use of the information to criminally investigate or prosecute any alcohol or drug abuse patient.[facility] CampusIn the event this information is protected by the Federal Confidentiality of Alcohol and Drug Abuse Patient Records regulations: The Federal rules restrict any use of the information to criminally investigate or prosecute any alcohol or drug abuse patient.[facility] CampusIn the event this information is protected by the Federal Confidentiality of Alcohol and Drug Abuse Patient Records regulations: The Federal rules restrict any use of the information to criminally investigate or prosecute any alcohol or drug abuse patient.[facility] CampusIn the event this information is protected by the Federal Confidentiality of Alcohol and Drug Abuse Patient Records regulations: The Federal rules restrict any use of the information to criminally investigate or prosecute any alcohol or drug abuse patient.[facility] CampusIn the event this information is protected by the Federal Confidentiality of Alcohol and Drug Abuse Patient Records regulations: The Federal rules restrict any use of the information to criminally investigate or prosecute any alcohol or drug abuse patient.[facility] CampusIn the event this information is protected by the Federal Confidentiality of Alcohol and Drug Abuse Patient Records regulations: The Federal rules restrict any use of the information to criminally investigate or prosecute any alcohol or drug abuse patient.[facility] CampusIn the event this information is protected by the Federal Confidentiality of Alcohol and Drug Abuse Patient Records regulations: The Federal rules restrict any use of the information to criminally investigate or prosecute any alcohol or drug abuse patient.[facility] CampusIn the event this information is protected by the Federal Confidentiality of Alcohol and Drug Abuse Patient Records regulations: The Federal rules restrict any use of the information to criminally investigate or prosecute any alcohol or drug abuse patient.[facility] CampusIn the event this information is protected by the Federal Confidentiality of Alcohol and Drug Abuse Patient Records regulations: The Federal rules restrict any use of the information to criminally investigate or prosecute any alcohol or drug abuse patient.[facility] CampusIn the event this information is protected by the Federal Confidentiality of Alcohol and Drug Abuse Patient Records regulations: The Federal rules restrict any use of the information to criminally investigate or prosecute any alcohol or drug abuse patient.[facility] CampusIn the event this information is protected by the Federal Confidentiality of Alcohol and Drug Abuse Patient Records regulations: The Federal rules restrict any use of the information to criminally investigate or prosecute any alcohol or drug abuse patient.[facility] CampusIn the event this information is protected by the Federal Confidentiality of Alcohol and Drug Abuse Patient Records regulations: The Federal rules restrict any use of the information to criminally investigate or prosecute any alcohol or drug abuse patient.[facility] CampusIn the event this information is protected by the Federal Confidentiality of Alcohol and Drug Abuse Patient Records regulations: The Federal rules restrict any use of the information to criminally investigate or prosecute any alcohol or drug abuse patient.[facility] CampusIn the event this information is protected by the Federal Confidentiality of Alcohol and Drug Abuse Patient Records regulations: The Federal rules restrict any use of the information to criminally investigate or prosecute any alcohol or drug abuse patient.[facility] CampusIn the event this information is protected by the Federal Confidentiality of Alcohol and Drug Abuse Patient Records regulations: The Federal rules restrict any use of the information to criminally investigate or prosecute any alcohol or drug abuse patient.[facility] CampusIn the event this information is protected by the Federal Confidentiality of Alcohol and Drug Abuse Patient Records regulations: The Federal rules restrict any use of the information to criminally investigate or prosecute any alcohol or drug abuse patient.[facility] CampusIn the event this information is protected by the Federal Confidentiality of Alcohol and Drug Abuse Patient Records regulations: The Federal rules restrict any use of the information to criminally investigate or prosecute any alcohol or drug abuse patient.[facility] CampusIn the event this information is protected by the Federal Confidentiality of Alcohol and Drug Abuse Patient Records regulations: The Federal rules restrict any use of the information to criminally investigate or prosecute any alcohol or drug abuse patient.[facility] CampusIn the event this information is protected by the Federal Confidentiality of Alcohol and Drug Abuse Patient Records regulations: The Federal rules restrict any use of the information to criminally investigate or prosecute any alcohol or drug abuse patient.[facility] CampusIn the event this information is protected by the Federal Confidentiality of Alcohol and Drug Abuse Patient Records regulations: The Federal rules restrict any use of the information to criminally investigate or prosecute any alcohol or drug abuse patient.[facility] CampusIn the event this information is protected by the Federal Confidentiality of Alcohol and Drug Abuse Patient Records regulations: The Federal rules restrict any use of the information to criminally investigate or prosecute any alcohol or drug abuse patient.[facility] CampusIn the event this information is protected by the Federal Confidentiality of Alcohol and Drug Abuse Patient Records regulations: The Federal rules restrict any use of the information to criminally investigate or prosecute any alcohol or drug abuse patient.[facility] CampusIn the event this information is protected by the Federal Confidentiality of Alcohol and Drug Abuse Patient Records regulations: The Federal rules restrict any use of the information to criminally investigate or prosecute any alcohol or drug abuse patient.[facility] CampusIn the event this information is protected by the Federal Confidentiality of Alcohol and Drug Abuse Patient Records regulations: The Federal rules restrict any use of the information to criminally investigate or prosecute any alcohol or drug abuse patient.[facility] CampusIn the event this information is protected by the Federal Confidentiality of Alcohol and Drug Abuse Patient Records regulations: The Federal rules restrict any use of the information to criminally investigate or prosecute any alcohol or drug abuse patient.[facility] CampusIn the event this information is protected by the Federal Confidentiality of Alcohol and Drug Abuse Patient Records regulations: The Federal rules restrict any use of the information to criminally investigate or prosecute any alcohol or drug abuse patient.[facility] CampusIn the event this information is protected by the Federal Confidentiality of Alcohol and Drug Abuse Patient Records regulations: The Federal rules restrict any use of the information to criminally investigate or prosecute any alcohol or drug abuse patient.[facility] CampusIn the event this information is protected by the Federal Confidentiality of Alcohol and Drug Abuse Patient Records regulations: The Federal rules restrict any use of the information to criminally investigate or prosecute any alcohol or drug abuse patient.[facility] CampusIn the event this information is protected by the Federal Confidentiality of Alcohol and Drug Abuse Patient Records regulations: The Federal rules restrict any use of the information to criminally investigate or prosecute any alcohol or drug abuse patient.[facility] CampusIn the event this information is protected by the Federal Confidentiality of Alcohol and Drug Abuse Patient Records regulations: The Federal rules restrict any use of the information to criminally investigate or prosecute any alcohol or drug abuse patient.[facility]In the event this information is protected by the Federal Confidentiality of Alcohol and Drug Abuse Patient Records regulations: The Federal rules restrict any use of the information to criminally investigate or prosecute any alcohol or drug abuse patient.[facility] CampusIn the event this information is protected by the Federal Confidentiality of Alcohol and Drug Abuse Patient Records regulations: The Federal rules restrict any use of the information to criminally investigate or prosecute any alcohol or drug abuse patient.[facility]In the event this information is protected by the Federal Confidentiality of Alcohol and Drug Abuse Patient Records regulations: The Federal rules restrict any use of the information to criminally investigate or prosecute any alcohol or drug abuse patient.[facility] CampusIn the event this information is protected by the Federal Confidentiality of Alcohol and Drug Abuse Patient Records regulations: The Federal rules restrict any use of the information to criminally investigate or prosecute any alcohol or drug abuse patient.[facility] CampusIn the event this information is protected by the Federal Confidentiality of Alcohol and Drug Abuse Patient Records regulations: The Federal rules restrict any use of the information to criminally investigate or prosecute any alcohol or drug abuse patient.[facility] CampusIn the event this information is protected by the Federal Confidentiality of Alcohol and Drug Abuse Patient Records regulations: The Federal rules restrict any use of the information to criminally investigate or prosecute any alcohol or drug abuse patient.[facility] CampusIn the event this information is protected by the Federal Confidentiality of Alcohol and Drug Abuse Patient Records regulations: The Federal rules restrict any use of the information to criminally investigate or prosecute any alcohol or drug abuse patient.[facility]In the event this information is protected by the Federal Confidentiality of Alcohol and Drug Abuse Patient Records regulations: The Federal rules restrict any use of the information to criminally investigate or prosecute any alcohol or drug abuse patient.[facility]In the event this information is protected by the Federal Confidentiality of Alcohol and Drug Abuse Patient Records regulations: The Federal rules restrict any use of the information to criminally investigate or prosecute any alcohol or drug abuse patient.[facility]In the event this information is protected by the Federal Confidentiality of Alcohol and Drug Abuse Patient Records regulations: The Federal rules restrict any use of the information to criminally investigate or prosecute any alcohol or drug abuse patient.[facility] CampusIn the event this information is protected by the Federal Confidentiality of Alcohol and Drug Abuse Patient Records regulations: The Federal rules restrict any use of the information to criminally investigate or prosecute any alcohol or drug abuse patient.[facility]In the event this information is protected by the Federal Confidentiality of Alcohol and Drug Abuse Patient Records regulations: The Federal rules restrict any use of the information to criminally investigate or prosecute any alcohol or drug abuse patient.[facility]In the event this information is protected by the Federal Confidentiality of Alcohol and Drug Abuse Patient Records regulations: The Federal rules restrict any use of the information to criminally investigate or prosecute any alcohol or drug abuse patient.[facility] CampusIn the event this information is protected by the Federal Confidentiality of Alcohol and Drug Abuse Patient Records regulations: The Federal rules restrict any use of the information to criminally investigate or prosecute any alcohol or drug abuse patient.[facility] CampusIn the event this information is protected by the Federal Confidentiality of Alcohol and Drug Abuse Patient Records regulations: The Federal rules restrict any use of the information to criminally investigate or prosecute any alcohol or drug abuse patient.[facility]In the event this information is protected by the Federal Confidentiality of Alcohol and Drug Abuse Patient Records regulations: The Federal rules restrict any use of the information to criminally investigate or prosecute any alcohol or drug abuse patient.[facility] CampusIn the event this information is protected by the Federal Confidentiality of Alcohol and Drug Abuse Patient Records regulations: The Federal rules restrict any use of the information to criminally investigate or prosecute any alcohol or drug abuse patient.[facility]In the event this information is protected by the Federal Confidentiality of Alcohol and Drug Abuse Patient Records regulations: The Federal rules restrict any use of the information to criminally investigate or prosecute any alcohol or drug abuse patient.[facility]In the event this information is protected by the Federal Confidentiality of Alcohol and Drug Abuse Patient Records regulations: The Federal rules restrict any use of the information to criminally investigate or prosecute any alcohol or drug abuse patient.[facility]In the event this information is protected by the Federal Confidentiality of Alcohol and Drug Abuse Patient Records regulations: The Federal rules restrict any use of the information to criminally investigate or prosecute any alcohol or drug abuse patient.[facility]In the event this information is protected by the Federal Confidentiality of Alcohol and Drug Abuse Patient Records regulations: The Federal rules restrict any use of the information to criminally investigate or prosecute any alcohol or drug abuse patient.[facility]In the event this information is protected by the Federal Confidentiality of Alcohol and Drug Abuse Patient Records regulations: The Federal rules restrict any use of the information to criminally investigate or prosecute any alcohol or drug abuse patient.[facility]In the event this information is protected by the Federal Confidentiality of Alcohol and Drug Abuse Patient Records regulations: The Federal rules restrict any use of the information to criminally investigate or prosecute any alcohol or drug abuse patient.[facility]In the event this information is protected by the Federal Confidentiality of Alcohol and Drug Abuse Patient Records regulations: The Federal rules restrict any use of the information to criminally investigate or prosecute any alcohol or drug abuse patient.[facility]In the event this information is protected by the Federal Confidentiality of Alcohol and Drug Abuse Patient Records regulations: The Federal rules restrict any use of the information to criminally investigate or prosecute any alcohol or drug abuse patient.[facility]In the event this information is protected by the Federal Confidentiality of Alcohol and Drug Abuse Patient Records regulations: The Federal rules restrict any use of the information to criminally investigate or prosecute any alcohol or drug abuse patient.[facility]In the event this information is protected by the Federal Confidentiality of Alcohol and Drug Abuse Patient Records regulations: The Federal rules restrict any use of the information to criminally investigate or prosecute any alcohol or drug abuse patient.[facility]In the event this information is protected by the Federal Confidentiality of Alcohol and Drug Abuse Patient Records regulations: The Federal rules restrict any use of the information to criminally investigate or prosecute any alcohol or drug abuse patient.[facility]In the event this information is protected by the Federal Confidentiality of Alcohol and Drug Abuse Patient Records regulations: The Federal rules restrict any use of the information to criminally investigate or prosecute any alcohol or drug abuse patient.[facility]In the event this information is protected by the Federal Confidentiality of Alcohol and Drug Abuse Patient Records regulations: The Federal rules restrict any use of the information to criminally investigate or prosecute any alcohol or drug abuse patient.[facility]In the event this information is protected by the Federal Confidentiality of Alcohol and Drug Abuse Patient Records regulations: The Federal rules restrict any use of the information to criminally investigate or prosecute any alcohol or drug abuse patient.[facility]In the event this information is protected by the Federal Confidentiality of Alcohol and Drug Abuse Patient Records regulations: The Federal rules restrict any use of the information to criminally investigate or prosecute any alcohol or drug abuse patient.[facility]In the event this information is protected by the Federal Confidentiality of Alcohol and Drug Abuse Patient Records regulations: The Federal rules restrict any use of the information to criminally investigate or prosecute any alcohol or drug abuse patient.[facility]In the event this information is protected by the Federal Confidentiality of Alcohol and Drug Abuse Patient Records regulations: The Federal rules restrict any use of the information to criminally investigate or prosecute any alcohol or drug abuse patient.[facility]In the event this information is protected by the Federal Confidentiality of Alcohol and Drug Abuse Patient Records regulations: The Federal rules restrict any use of the information to criminally investigate or prosecute any alcohol or drug abuse patient.[facility]In the event this information is protected by the Federal Confidentiality of Alcohol and Drug Abuse Patient Records regulations: The Federal rules restrict any use of the information to criminally investigate or prosecute any alcohol or drug abuse patient.[facility]In the event this information is protected by the Federal Confidentiality of Alcohol and Drug Abuse Patient Records regulations: The Federal rules restrict any use of the information to criminally investigate or prosecute any alcohol or drug abuse patient.[facility]In the event this information is protected by the Federal Confidentiality of Alcohol and Drug Abuse Patient Records regulations: The Federal rules restrict any use of the information to criminally investigate or prosecute any alcohol or drug abuse patient.[facility]In the event this information is protected by the Federal Confidentiality of Alcohol and Drug Abuse Patient Records regulations: The Federal rules restrict any use of the information to criminally investigate or prosecute any alcohol or drug abuse patient.[facility]In the event this information is protected by the Federal Confidentiality of Alcohol and Drug Abuse Patient Records regulations: The Federal rules restrict any use of the information to criminally investigate or prosecute any alcohol or drug abuse patient.[facility]In the event this information is protected by the Federal Confidentiality of Alcohol and Drug Abuse Patient Records regulations: The Federal rules restrict any use of the information to criminally investigate or prosecute any alcohol or drug abuse patient.[facility]In the event this information is protected by the Federal Confidentiality of Alcohol and Drug Abuse Patient Records regulations: The Federal rules restrict any use of the information to criminally investigate or prosecute any alcohol or drug abuse patient.[facility]In the event this information is protected by the Federal Confidentiality of Alcohol and Drug Abuse Patient Records regulations: The Federal rules restrict any use of the information to criminally investigate or prosecute any alcohol or drug abuse patient.[facility]In the event this information is protected by the Federal Confidentiality of Alcohol and Drug Abuse Patient Records regulations: The Federal rules restrict any use of the information to criminally investigate or prosecute any alcohol or drug abuse patient.[facility]In the event this information is protected by the Federal Confidentiality of Alcohol and Drug Abuse Patient Records regulations: The Federal rules restrict any use of the information to criminally investigate or prosecute any alcohol or drug abuse patient.[facility]In the event this information is protected by the Federal Confidentiality of Alcohol and Drug Abuse Patient Records regulations: The Federal rules restrict any use of the information to criminally investigate or prosecute any alcohol or drug abuse patient.[facility]In the event this information is protected by the Federal Confidentiality of Alcohol and Drug Abuse Patient Records regulations: The Federal rules restrict any use of the information to criminally investigate or prosecute any alcohol or drug abuse patient.[facility]In the event this information is protected by the Federal Confidentiality of Alcohol and Drug Abuse Patient Records regulations: The Federal rules restrict any use of the information to criminally investigate or prosecute any alcohol or drug abuse patient.[facility]In the event this information is protected by the Federal Confidentiality of Alcohol and Drug Abuse Patient Records regulations: The Federal rules restrict any use of the information to criminally investigate or prosecute any alcohol or drug abuse patient.[facility]In the event this information is protected by the Federal Confidentiality of Alcohol and Drug Abuse Patient Records regulations: The Federal rules restrict any use of the information to criminally investigate or prosecute any alcohol or drug abuse patient.[facility]In the event this information is protected by the Federal Confidentiality of Alcohol and Drug Abuse Patient Records regulations: The Federal rules restrict any use of the information to criminally investigate or prosecute any alcohol or drug abuse patient.[facility]In the event this information is protected by the Federal Confidentiality of Alcohol and Drug Abuse Patient Records regulations: The Federal rules restrict any use of the information to criminally investigate or prosecute any alcohol or drug abuse patient.[facility]In the event this information is protected by the Federal Confidentiality of Alcohol and Drug Abuse Patient Records regulations: The Federal rules restrict any use of the information to criminally investigate or prosecute any alcohol or drug abuse patient.[facility]In the event this information is protected by the Federal Confidentiality of Alcohol and Drug Abuse Patient Records regulations: The Federal rules restrict any use of the information to criminally investigate or prosecute any alcohol or drug abuse patient.[facility]In the event this information is protected by the Federal Confidentiality of Alcohol and Drug Abuse Patient Records regulations: The Federal rules restrict any use of the information to criminally investigate or prosecute any alcohol or drug abuse patient.[facility]In the event this information is protected by the Federal Confidentiality of Alcohol and Drug Abuse Patient Records regulations: The Federal rules restrict any use of the information to criminally investigate or prosecute any alcohol or drug abuse patient.[facility]In the event this information is protected by the Federal Confidentiality of Alcohol and Drug Abuse Patient Records regulations: The Federal rules restrict any use of the information to criminally investigate or prosecute any alcohol or drug abuse patient.[facility]In the event this information is protected by the Federal Confidentiality of Alcohol and Drug Abuse Patient Records regulations: The Federal rules restrict any use of the information to criminally investigate or prosecute any alcohol or drug abuse patient.[facility]In the event this information is protected by the Federal Confidentiality of Alcohol and Drug Abuse Patient Records regulations: The Federal rules restrict any use of the information to criminally investigate or prosecute any alcohol or drug abuse patient.[facility]In the event this information is protected by the Federal Confidentiality of Alcohol and Drug Abuse Patient Records regulations: The Federal rules restrict any use of the information to criminally investigate or prosecute any alcohol or drug abuse patient.[facility]In the event this information is protected by the Federal Confidentiality of Alcohol and Drug Abuse Patient Records regulations: The Federal rules restrict any use of the information to criminally investigate or prosecute any alcohol or drug abuse patient.[facility]In the event this information is protected by the Federal Confidentiality of Alcohol and Drug Abuse Patient Records regulations: The Federal rules restrict any use of the information to criminally investigate or prosecute any alcohol or drug abuse patient.[facility]In the event this information is protected by the Federal Confidentiality of Alcohol and Drug Abuse Patient Records regulations: The Federal rules restrict any use of the information to criminally investigate or prosecute any alcohol or drug abuse patient.[facility]In the event this information is protected by the Federal Confidentiality of Alcohol and Drug Abuse Patient Records regulations: The Federal rules restrict any use of the information to criminally investigate or prosecute any alcohol or drug abuse patient.[facility]In the event this information is protected by the Federal Confidentiality of Alcohol and Drug Abuse Patient Records regulations: The Federal rules restrict any use of the information to criminally investigate or prosecute any alcohol or drug abuse patient.[facility]In the event this information is protected by the Federal Confidentiality of Alcohol and Drug Abuse Patient Records regulations: The Federal rules restrict any use of the information to criminally investigate or prosecute any alcohol or drug abuse patient.[facility]In the event this information is protected by the Federal Confidentiality of Alcohol and Drug Abuse Patient Records regulations: The Federal rules restrict any use of the information to criminally investigate or prosecute any alcohol or drug abuse patient.[facility]In the event this information is protected by the Federal Confidentiality of Alcohol and Drug Abuse Patient Records regulations: The Federal rules restrict any use of the information to criminally investigate or prosecute any alcohol or drug abuse patient.[facility]In the event this information is protected by the Federal Confidentiality of Alcohol and Drug Abuse Patient Records regulations: The Federal rules restrict any use of the information to criminally investigate or prosecute any alcohol or drug abuse patient.[facility]In the event this information is protected by the Federal Confidentiality of Alcohol and Drug Abuse Patient Records regulations: The Federal rules restrict any use of the information to criminally investigate or prosecute any alcohol or drug abuse patient.[facility]In the event this information is protected by the Federal Confidentiality of Alcohol and Drug Abuse Patient Records regulations: The Federal rules restrict any use of the information to criminally investigate or prosecute any alcohol or drug abuse patient.[facility]In the event this information is protected by the Federal Confidentiality of Alcohol and Drug Abuse Patient Records regulations: The Federal rules restrict any use of the information to criminally investigate or prosecute any alcohol or drug abuse patient.[facility]In the event this information is protected by the Federal Confidentiality of Alcohol and Drug Abuse Patient Records regulations: The Federal rules restrict any use of the information to criminally investigate or prosecute any alcohol or drug abuse patient.[facility]In the event this information is protected by the Federal Confidentiality of Alcohol and Drug Abuse Patient Records regulations: The Federal rules restrict any use of the information to criminally investigate or prosecute any alcohol or drug abuse patient.[facility]In the event this information is protected by the Federal Confidentiality of Alcohol and Drug Abuse Patient Records regulations: The Federal rules restrict any use of the information to criminally investigate or prosecute any alcohol or drug abuse patient.[facility]In the event this information is protected by the Federal Confidentiality of Alcohol and Drug Abuse Patient Records regulations: The Federal rules restrict any use of the information to criminally investigate or prosecute any alcohol or drug abuse patient.[facility]In the event this information is protected by the Federal Confidentiality of Alcohol and Drug Abuse Patient Records regulations: The Federal rules restrict any use of the information to criminally investigate or prosecute any alcohol or drug abuse patient.[facility]In the event this information is protected by the Federal Confidentiality of Alcohol and Drug Abuse Patient Records regulations: The Federal rules restrict any use of the information to criminally investigate or prosecute any alcohol or drug abuse patient.[facility]In the event this information is protected by the Federal Confidentiality of Alcohol and Drug Abuse Patient Records regulations: The Federal rules restrict any use of the information to criminally investigate or prosecute any alcohol or drug abuse patient.[facility]In the event this information is protected by the Federal Confidentiality of Alcohol and Drug Abuse Patient Records regulations: The Federal rules restrict any use of the information to criminally investigate or prosecute any alcohol or drug abuse patient.[facility]In the event this information is protected by the Federal Confidentiality of Alcohol and Drug Abuse Patient Records regulations: The Federal rules restrict any use of the information to criminally investigate or prosecute any alcohol or drug abuse patient.[facility]In the event this information is protected by the Federal Confidentiality of Alcohol and Drug Abuse Patient Records regulations: The Federal rules restrict any use of the information to criminally investigate or prosecute any alcohol or drug abuse patient.[facility] CampusIn the event this information is protected by the Federal Confidentiality of Alcohol and Drug Abuse Patient Records regulations: The Federal rules restrict any use of the information to criminally investigate or prosecute any alcohol or drug abuse patient.[facility]In the event this information is protected by the Federal Confidentiality of Alcohol and Drug Abuse Patient Records regulations: The Federal rules restrict any use of the information to criminally investigate or prosecute any alcohol or drug abuse patient.[facility]In the event this information is protected by the Federal Confidentiality of Alcohol and Drug Abuse Patient Records regulations: The Federal rules restrict any use of the information to criminally investigate or prosecute any alcohol or drug abuse patient.[facility]In the event this information is protected by the Federal Confidentiality of Alcohol and Drug Abuse Patient Records regulations: The Federal rules restrict any use of the information to criminally investigate or prosecute any alcohol or drug abuse patient.[facility]In the event this information is protected by the Federal Confidentiality of Alcohol and Drug Abuse Patient Records regulations: The Federal rules restrict any use of the information to criminally investigate or prosecute any alcohol or drug abuse patient.[facility]In the event this information is protected by the Federal Confidentiality of Alcohol and Drug Abuse Patient Records regulations: The Federal rules restrict any use of the information to criminally investigate or prosecute any alcohol or drug abuse patient.[facility]In the event this information is protected by the Federal Confidentiality of Alcohol and Drug Abuse Patient Records regulations: The Federal rules restrict any use of the information to criminally investigate or prosecute any alcohol or drug abuse patient.[facility]In the event this information is protected by the Federal Confidentiality of Alcohol and Drug Abuse Patient Records regulations: The Federal rules restrict any use of the information to criminally investigate or prosecute any alcohol or drug abuse patient.[facility]In the event this information is protected by the Federal Confidentiality of Alcohol and Drug Abuse Patient Records regulations: The Federal rules restrict any use of the information to criminally investigate or prosecute any alcohol or drug abuse patient.[facility]In the event this information is protected by the Federal Confidentiality of Alcohol and Drug Abuse Patient Records regulations: The Federal rules restrict any use of the information to criminally investigate or prosecute any alcohol or drug abuse patient.[facility]In the event this information is protected by the Federal Confidentiality of Alcohol and Drug Abuse Patient Records regulations: The Federal rules restrict any use of the information to criminally investigate or prosecute any alcohol or drug abuse patient.[facility]In the event this information is protected by the Federal Confidentiality of Alcohol and Drug Abuse Patient Records regulations: The Federal rules restrict any use of the information to criminally investigate or prosecute any alcohol or drug abuse patient.[facility]In the event this information is protected by the Federal Confidentiality of Alcohol and Drug Abuse Patient Records regulations: The Federal rules restrict any use of the information to criminally investigate or prosecute any alcohol or drug abuse patient.[facility]In the event this information is protected by the Federal Confidentiality of Alcohol and Drug Abuse Patient Records regulations: The Federal rules restrict any use of the information to criminally investigate or prosecute any alcohol or drug abuse patient.[facility]In the event this information is protected by the Federal Confidentiality of Alcohol and Drug Abuse Patient Records regulations: The Federal rules restrict any use of the information to criminally investigate or prosecute any alcohol or drug abuse patient.[facility]In the event this information is protected by the Federal Confidentiality of Alcohol and Drug Abuse Patient Records regulations: The Federal rules restrict any use of the information to criminally investigate or prosecute any alcohol or drug abuse patient.[facility]In the event this information is protected by the Federal Confidentiality of Alcohol and Drug Abuse Patient Records regulations: The Federal rules restrict any use of the information to criminally investigate or prosecute any alcohol or drug abuse patient.[facility]In the event this information is protected by the Federal Confidentiality of Alcohol and Drug Abuse Patient Records regulations: The Federal rules restrict any use of the information to criminally investigate or prosecute any alcohol or drug abuse patient.[facility]In the event this information is protected by the Federal Confidentiality of Alcohol and Drug Abuse Patient Records regulations: The Federal rules restrict any use of the information to criminally investigate or prosecute any alcohol or drug abuse patient.[facility]In the event this information is protected by the Federal Confidentiality of Alcohol and Drug Abuse Patient Records regulations: The Federal rules restrict any use of the information to criminally investigate or prosecute any alcohol or drug abuse patient.[facility]In the event this information is protected by the Federal Confidentiality of Alcohol and Drug Abuse Patient Records regulations: The Federal rules restrict any use of the information to criminally investigate or prosecute any alcohol or drug abuse patient.[facility]In the event this information is protected by the Federal Confidentiality of Alcohol and Drug Abuse Patient Records regulations: The Federal rules restrict any use of the information to criminally investigate or prosecute any alcohol or drug abuse patient.[facility]In the event this information is protected by the Federal Confidentiality of Alcohol and Drug Abuse Patient Records regulations: The Federal rules restrict any use of the information to criminally investigate or prosecute any alcohol or drug abuse patient.[facility]In the event this information is protected by the Federal Confidentiality of Alcohol and Drug Abuse Patient Records regulations: The Federal rules restrict any use of the information to criminally investigate or prosecute any alcohol or drug abuse patient.[facility]In the event this information is protected by the Federal Confidentiality of Alcohol and Drug Abuse Patient Records regulations: The Federal rules restrict any use of the information to criminally investigate or prosecute any alcohol or drug abuse patient.[facility]In the event this information is protected by the Federal Confidentiality of Alcohol and Drug Abuse Patient Records regulations: The Federal rules restrict any use of the information to criminally investigate or prosecute any alcohol or drug abuse patient.[facility]In the event this information is protected by the Federal Confidentiality of Alcohol and Drug Abuse Patient Records regulations: The Federal rules restrict any use of the information to criminally investigate or prosecute any alcohol or drug abuse patient.[facility]In the event this information is protected by the Federal Confidentiality of Alcohol and Drug Abuse Patient Records regulations: The Federal rules restrict any use of the information to criminally investigate or prosecute any alcohol or drug abuse patient.[facility]In the event this information is protected by the Federal Confidentiality of Alcohol and Drug Abuse Patient Records regulations: The Federal rules restrict any use of the information to criminally investigate or prosecute any alcohol or drug abuse patient.[facility]In the event this information is protected by the Federal Confidentiality of Alcohol and Drug Abuse Patient Records regulations: The Federal rules restrict any use of the information to criminally investigate or prosecute any alcohol or drug abuse patient.[facility]In the event this information is protected by the Federal Confidentiality of Alcohol and Drug Abuse Patient Records regulations: The Federal rules restrict any use of the information to criminally investigate or prosecute any alcohol or drug abuse patient.[facility]In the event this information is protected by the Federal Confidentiality of Alcohol and Drug Abuse Patient Records regulations: The Federal rules restrict any use of the information to criminally investigate or prosecute any alcohol or drug abuse patient.[facility]In the event this information is protected by the Federal Confidentiality of Alcohol and Drug Abuse Patient Records regulations: The Federal rules restrict any use of the information to criminally investigate or prosecute any alcohol or drug abuse patient.[facility]In the event this information is protected by the Federal Confidentiality of Alcohol and Drug Abuse Patient Records regulations: The Federal rules restrict any use of the information to criminally investigate or prosecute any alcohol or drug abuse patient.[facility]In the event this information is protected by the Federal Confidentiality of Alcohol and Drug Abuse Patient Records regulations: The Federal rules restrict any use of the information to criminally investigate or prosecute any alcohol or drug abuse patient.[facility]In the event this information is protected by the Federal Confidentiality of Alcohol and Drug Abuse Patient Records regulations: The Federal rules restrict any use of the information to criminally investigate or prosecute any alcohol or drug abuse patient.[facility]In the event this information is protected by the Federal Confidentiality of Alcohol and Drug Abuse Patient Records regulations: The Federal rules restrict any use of the information to criminally investigate or prosecute any alcohol or drug abuse patient.[facility]In the event this information is protected by the Federal Confidentiality of Alcohol and Drug Abuse Patient Records regulations: The Federal rules restrict any use of the information to criminally investigate or prosecute any alcohol or drug abuse patient.[facility]In the event this information is protected by the Federal Confidentiality of Alcohol and Drug Abuse Patient Records regulations: The Federal rules restrict any use of the information to criminally investigate or prosecute any alcohol or drug abuse patient.[facility]In the event this information is protected by the Federal Confidentiality of Alcohol and Drug Abuse Patient Records regulations: The Federal rules restrict any use of the information to criminally investigate or prosecute any alcohol or drug abuse patient.[facility]In the event this information is protected by the Federal Confidentiality of Alcohol and Drug Abuse Patient Records regulations: The Federal rules restrict any use of the information to criminally investigate or prosecute any alcohol or drug abuse patient.[facility]In the event this information is protected by the Federal Confidentiality of Alcohol and Drug Abuse Patient Records regulations: The Federal rules restrict any use of the information to criminally investigate or prosecute any alcohol or drug abuse patient.[facility]In the event this information is protected by the Federal Confidentiality of Alcohol and Drug Abuse Patient Records regulations: The Federal rules restrict any use of the information to criminally investigate or prosecute any alcohol or drug abuse patient.[facility]In the event this information is protected by the Federal Confidentiality of Alcohol and Drug Abuse Patient Records regulations: The Federal rules restrict any use of the information to criminally investigate or prosecute any alcohol or drug abuse patient.[facility]In the event this information is protected by the Federal Confidentiality of Alcohol and Drug Abuse Patient Records regulations: The Federal rules restrict any use of the information to criminally investigate or prosecute any alcohol or drug abuse patient.[facility]In the event this information is protected by the Federal Confidentiality of Alcohol and Drug Abuse Patient Records regulations: The Federal rules restrict any use of the information to criminally investigate or prosecute any alcohol or drug abuse patient.[facility]In the event this information is protected by the Federal Confidentiality of Alcohol and Drug Abuse Patient Records regulations: The Federal rules restrict any use of the information to criminally investigate or prosecute any alcohol or drug abuse patient.[facility]In the event this information is protected by the Federal Confidentiality of Alcohol and Drug Abuse Patient Records regulations: The Federal rules restrict any use of the information to criminally investigate or prosecute any alcohol or drug abuse patient.[facility]In the event this information is protected by the Federal Confidentiality of Alcohol and Drug Abuse Patient Records regulations: The Federal rules restrict any use of the information to criminally investigate or prosecute any alcohol or drug abuse patient.[facility]In the event this information is protected by the Federal Confidentiality of Alcohol and Drug Abuse Patient Records regulations: The Federal rules restrict any use of the information to criminally investigate or prosecute any alcohol or drug abuse patient.[facility]In the event this information is protected by the Federal Confidentiality of Alcohol and Drug Abuse Patient Records regulations: The Federal rules restrict any use of the information to criminally investigate or prosecute any alcohol or drug abuse patient.[facility]In the event this information is protected by the Federal Confidentiality of Alcohol and Drug Abuse Patient Records regulations: The Federal rules restrict any use of the information to criminally investigate or prosecute any alcohol or drug abuse patient.[facility]In the event this information is protected by the Federal Confidentiality of Alcohol and Drug Abuse Patient Records regulations: The Federal rules restrict any use of the information to criminally investigate or prosecute any alcohol or drug abuse patient.[facility]In the event this information is protected by the Federal Confidentiality of Alcohol and Drug Abuse Patient Records regulations: The Federal rules restrict any use of the information to criminally investigate or prosecute any alcohol or drug abuse patient.[facility]In the event this information is protected by the Federal Confidentiality of Alcohol and Drug Abuse Patient Records regulations: The Federal rules restrict any use of the information to criminally investigate or prosecute any alcohol or drug abuse patient.[facility]In the event this information is protected by the Federal Confidentiality of Alcohol and Drug Abuse Patient Records regulations: The Federal rules restrict any use of the information to criminally investigate or prosecute any alcohol or drug abuse patient.[facility]In the event this information is protected by the Federal Confidentiality of Alcohol and Drug Abuse Patient Records regulations: The Federal rules restrict any use of the information to criminally investigate or prosecute any alcohol or drug abuse patient.[facility]In the event this information is protected by the Federal Confidentiality of Alcohol and Drug Abuse Patient Records regulations: The Federal rules restrict any use of the information to criminally investigate or prosecute any alcohol or drug abuse patient.[facility]In the event this information is protected by the Federal Confidentiality of Alcohol and Drug Abuse Patient Records regulations: The Federal rules restrict any use of the information to criminally investigate or prosecute any alcohol or drug abuse patient.[facility]In the event this information is protected by the Federal Confidentiality of Alcohol and Drug Abuse Patient Records regulations: The Federal rules restrict any use of the information to criminally investigate or prosecute any alcohol or drug abuse patient.[facility]In the event this information is protected by the Federal Confidentiality of Alcohol and Drug Abuse Patient Records regulations: The Federal rules restrict any use of the information to criminally investigate or prosecute any alcohol or drug abuse patient.[facility]In the event this information is protected by the Federal Confidentiality of Alcohol and Drug Abuse Patient Records regulations: The Federal rules restrict any use of the information to criminally investigate or prosecute any alcohol or drug abuse patient.[facility]In the event this information is protected by the Federal Confidentiality of Alcohol and Drug Abuse Patient Records regulations: The Federal rules restrict any use of the information to criminally investigate or prosecute any alcohol or drug abuse patient.[facility]In the event this information is protected by the Federal Confidentiality of Alcohol and Drug Abuse Patient Records regulations: The Federal rules restrict any use of the information to criminally investigate or prosecute any alcohol or drug abuse patient.[facility]In the event this information is protected by the Federal Confidentiality of Alcohol and Drug Abuse Patient Records regulations: The Federal rules restrict any use of the information to criminally investigate or prosecute any alcohol or drug abuse patient.[facility]In the event this information is protected by the Federal Confidentiality of Alcohol and Drug Abuse Patient Records regulations: The Federal rules restrict any use of the information to criminally investigate or prosecute any alcohol or drug abuse patient.[facility]In the event this information is protected by the Federal Confidentiality of Alcohol and Drug Abuse Patient Records regulations: The Federal rules restrict any use of the information to criminally investigate or prosecute any alcohol or drug abuse patient.[facility]In the event this information is protected by the Federal Confidentiality of Alcohol and Drug Abuse Patient Records regulations: The Federal rules restrict any use of the information to criminally investigate or prosecute any alcohol or drug abuse patient.[facility]In the event this information is protected by the Federal Confidentiality of Alcohol and Drug Abuse Patient Records regulations: The Federal rules restrict any use of the information to criminally investigate or prosecute any alcohol or drug abuse patient.[facility]In the event this information is protected by the Federal Confidentiality of Alcohol and Drug Abuse Patient Records regulations: The Federal rules restrict any use of the information to criminally investigate or prosecute any alcohol or drug abuse patient.[facility]In the event this information is protected by the Federal Confidentiality of Alcohol and Drug Abuse Patient Records regulations: The Federal rules restrict any use of the information to criminally investigate or prosecute any alcohol or drug abuse patient.[facility]In the event this information is protected by the Federal Confidentiality of Alcohol and Drug Abuse Patient Records regulations: The Federal rules restrict any use of the information to criminally investigate or prosecute any alcohol or drug abuse patient.[facility]In the event this information is protected by the Federal Confidentiality of Alcohol and Drug Abuse Patient Records regulations: The Federal rules restrict any use of the information to criminally investigate or prosecute any alcohol or drug abuse patient.[facility]In the event this information is protected by the Federal Confidentiality of Alcohol and Drug Abuse Patient Records regulations: The Federal rules restrict any use of the information to criminally investigate or prosecute any alcohol or drug abuse patient.[facility]In the event this information is protected by the Federal Confidentiality of Alcohol and Drug Abuse Patient Records regulations: The Federal rules restrict any use of the information to criminally investigate or prosecute any alcohol or drug abuse patient.[facility]In the event this information is protected by the Federal Confidentiality of Alcohol and Drug Abuse Patient Records regulations: The Federal rules restrict any use of the information to criminally investigate or prosecute any alcohol or drug abuse patient.[facility]In the event this information is protected by the Federal Confidentiality of Alcohol and Drug Abuse Patient Records regulations: The Federal rules restrict any use of the information to criminally investigate or prosecute any alcohol or drug abuse patient.[facility]In the event this information is protected by the Federal Confidentiality of Alcohol and Drug Abuse Patient Records regulations: The Federal rules restrict any use of the information to criminally investigate or prosecute any alcohol or drug abuse patient.[facility]In the event this information is protected by the Federal Confidentiality of Alcohol and Drug Abuse Patient Records regulations: The Federal rules restrict any use of the information to criminally investigate or prosecute any alcohol or drug abuse patient.[facility]In the event this information is protected by the Federal Confidentiality of Alcohol and Drug Abuse Patient Records regulations: The Federal rules restrict any use of the information to criminally investigate or prosecute any alcohol or drug abuse patient.[facility]In the event this information is protected by the Federal Confidentiality of Alcohol and Drug Abuse Patient Records regulations: The Federal rules restrict any use of the information to criminally investigate or prosecute any alcohol or drug abuse patient.[facility]In the event this information is protected by the Federal Confidentiality of Alcohol and Drug Abuse Patient Records regulations: The Federal rules restrict any use of the information to criminally investigate or prosecute any alcohol or drug abuse patient.[facility]In the event this information is protected by the Federal Confidentiality of Alcohol and Drug Abuse Patient Records regulations: The Federal rules restrict any use of the information to criminally investigate or prosecute any alcohol or drug abuse patient.[facility]In the event this information is protected by the Federal Confidentiality of Alcohol and Drug Abuse Patient Records regulations: The Federal rules restrict any use of the information to criminally investigate or prosecute any alcohol or drug abuse patient.[facility]In the event this information is protected by the Federal Confidentiality of Alcohol and Drug Abuse Patient Records regulations: The Federal rules restrict any use of the information to criminally investigate or prosecute any alcohol or drug abuse patient.[facility] CampusIn the event this information is protected by the Federal Confidentiality of Alcohol and Drug Abuse Patient Records regulations: The Federal rules restrict any use of the information to criminally investigate or prosecute any alcohol or drug abuse patient.[facility] CampusIn the event this information is protected by the Federal Confidentiality of Alcohol and Drug Abuse Patient Records regulations: The Federal rules restrict any use of the information to criminally investigate or prosecute any alcohol or drug abuse patient.[facility] CampusIn the event this information is protected by the Federal Confidentiality of Alcohol and Drug Abuse Patient Records regulations: The Federal rules restrict any use of the information to criminally investigate or prosecute any alcohol or drug abuse patient.[facility] CampusIn the event this information is protected by the Federal Confidentiality of Alcohol and Drug Abuse Patient Records regulations: The Federal rules restrict any use of the information to criminally investigate or prosecute any alcohol or drug abuse patient.[facility] CampusIn the event this information is protected by the Federal Confidentiality of Alcohol and Drug Abuse Patient Records regulations: The Federal rules restrict any use of the information to criminally investigate or prosecute any alcohol or drug abuse patient.[facility] CampusIn the event this information is protected by the Federal Confidentiality of Alcohol and Drug Abuse Patient Records regulations: The Federal rules restrict any use of the information to criminally investigate or prosecute any alcohol or drug abuse patient.[facility] CampusIn the event this information is protected by the Federal Confidentiality of Alcohol and Drug Abuse Patient Records regulations: The Federal rules restrict any use of the information to criminally investigate or prosecute any alcohol or drug abuse patient.[facility] CampusIn the event this information is protected by the Federal Confidentiality of Alcohol and Drug Abuse Patient Records regulations: The Federal rules restrict any use of the information to criminally investigate or prosecute any alcohol or drug abuse patient.[facility] CampusIn the event this information is protected by the Federal Confidentiality of Alcohol and Drug Abuse Patient Records regulations: The Federal rules restrict any use of the information to criminally investigate or prosecute any alcohol or drug abuse patient.[facility] CampusIn the event this information is protected by the Federal Confidentiality of Alcohol and Drug Abuse Patient Records regulations: The Federal rules restrict any use of the information to criminally investigate or prosecute any alcohol or drug abuse patient.[facility] CampusIn the event this information is protected by the Federal Confidentiality of Alcohol and Drug Abuse Patient Records regulations: The Federal rules restrict any use of the information to criminally investigate or prosecute any alcohol or drug abuse patient.[facility] CampusIn the event this information is protected by the Federal Confidentiality of Alcohol and Drug Abuse Patient Records regulations: The Federal rules restrict any use of the information to criminally investigate or prosecute any alcohol or drug abuse patient.[facility] CampusIn the event this information is protected by the Federal Confidentiality of Alcohol and Drug Abuse Patient Records regulations: The Federal rules restrict any use of the information to criminally investigate or prosecute any alcohol or drug abuse patient.[facility] CampusIn the event this information is protected by the Federal Confidentiality of Alcohol and Drug Abuse Patient Records regulations: The Federal rules restrict any use of the information to criminally investigate or prosecute any alcohol or drug abuse patient.[facility] CampusIn the event this information is protected by the Federal Confidentiality of Alcohol and Drug Abuse Patient Records regulations: The Federal rules restrict any use of the information to criminally investigate or prosecute any alcohol or drug abuse patient.[facility] CampusIn the event this information is protected by the Federal Confidentiality of Alcohol and Drug Abuse Patient Records regulations: The Federal rules restrict any use of the information to criminally investigate or prosecute any alcohol or drug abuse patient.[facility] CampusIn the event this information is protected by the Federal Confidentiality of Alcohol and Drug Abuse Patient Records regulations: The Federal rules restrict any use of the information to criminally investigate or prosecute any alcohol or drug abuse patient.[facility] CampusIn the event this information is protected by the Federal Confidentiality of Alcohol and Drug Abuse Patient Records regulations: The Federal rules restrict any use of the information to criminally investigate or prosecute any alcohol or drug abuse patient.[facility] CampusIn the event this information is protected by the Federal Confidentiality of Alcohol and Drug Abuse Patient Records regulations: The Federal rules restrict any use of the information to criminally investigate or prosecute any alcohol or drug abuse patient.[facility] CampusIn the event this information is protected by the Federal Confidentiality of Alcohol and Drug Abuse Patient Records regulations: The Federal rules restrict any use of the information to criminally investigate or prosecute any alcohol or drug abuse patient.[facility] CampusIn the event this information is protected by the Federal Confidentiality of Alcohol and Drug Abuse Patient Records regulations: The Federal rules restrict any use of the information to criminally investigate or prosecute any alcohol or drug abuse patient.[facility] CampusIn the event this information is protected by the Federal Confidentiality of Alcohol and Drug Abuse Patient Records regulations: The Federal rules restrict any use of the information to criminally investigate or prosecute any alcohol or drug abuse patient.[facility] CampusIn the event this information is protected by the Federal Confidentiality of Alcohol and Drug Abuse Patient Records regulations: The Federal rules restrict any use of the information to criminally investigate or prosecute any alcohol or drug abuse patient.[facility] CampusIn the event this information is protected by the Federal Confidentiality of Alcohol and Drug Abuse Patient Records regulations: The Federal rules restrict any use of the information to criminally investigate or prosecute any alcohol or drug abuse patient.[facility] CampusIn the event this information is protected by the Federal Confidentiality of Alcohol and Drug Abuse Patient Records regulations: The Federal rules restrict any use of the information to criminally investigate or prosecute any alcohol or drug abuse patient.[facility] CampusIn the event this information is protected by the Federal Confidentiality of Alcohol and Drug Abuse Patient Records regulations: The Federal rules restrict any use of the information to criminally investigate or prosecute any alcohol or drug abuse patient.[facility] CampusIn the event this information is protected by the Federal Confidentiality of Alcohol and Drug Abuse Patient Records regulations: The Federal rules restrict any use of the information to criminally investigate or prosecute any alcohol or drug abuse patient.[facility] CampusIn the event this information is protected by the Federal Confidentiality of Alcohol and Drug Abuse Patient Records regulations: The Federal rules restrict any use of the information to criminally investigate or prosecute any alcohol or drug abuse patient.[facility] CampusIn the event this information is protected by the Federal Confidentiality of Alcohol and Drug Abuse Patient Records regulations: The Federal rules restrict any use of the information to criminally investigate or prosecute any alcohol or drug abuse patient.[facility] CampusIn the event this information is protected by the Federal Confidentiality of Alcohol and Drug Abuse Patient Records regulations: The Federal rules restrict any use of the information to criminally investigate or prosecute any alcohol or drug abuse patient.[facility] CampusIn the event this information is protected by the Federal Confidentiality of Alcohol and Drug Abuse Patient Records regulations: The Federal rules restrict any use of the information to criminally investigate or prosecute any alcohol or drug abuse patient.[facility] CampusIn the event this information is protected by the Federal Confidentiality of Alcohol and Drug Abuse Patient Records regulations: The Federal rules restrict any use of the information to criminally investigate or prosecute any alcohol or drug abuse patient.[facility] CampusIn the event this information is protected by the Federal Confidentiality of Alcohol and Drug Abuse Patient Records regulations: The Federal rules restrict any use of the information to criminally investigate or prosecute any alcohol or drug abuse patient.[facility] CampusIn the event this information is protected by the Federal Confidentiality of Alcohol and Drug Abuse Patient Records regulations: The Federal rules restrict any use of the information to criminally investigate or prosecute any alcohol or drug abuse patient.[facility] CampusIn the event this information is protected by the Federal Confidentiality of Alcohol and Drug Abuse Patient Records regulations: The Federal rules restrict any use of the information to criminally investigate or prosecute any alcohol or drug abuse patient.[facility] CampusIn the event this information is protected by the Federal Confidentiality of Alcohol and Drug Abuse Patient Records regulations: The Federal rules restrict any use of the information to criminally investigate or prosecute any alcohol or drug abuse patient.[facility] CampusIn the event this information is protected by the Federal Confidentiality of Alcohol and Drug Abuse Patient Records regulations: The Federal rules restrict any use of the information to criminally investigate or prosecute any alcohol or drug abuse patient.[facility] CampusIn the event this information is protected by the Federal Confidentiality of Alcohol and Drug Abuse Patient Records regulations: The Federal rules restrict any use of the information to criminally investigate or prosecute any alcohol or drug abuse patient.[facility] Care Teams (unrecognized sec tion and content) [facility] Cashier Relationship Specialty Start Date End Date Mitch Mejia PCP - General Family Practice 01/19/16 Meenu Garay MD, [address] [place] [address] Physician Radiation Oncology 09/06/16 Carla Almonte RN Specialty Hydrogeologist Oncology 07/06/17 Meenu Garay MD, [address] [place] [address] Physician Radiation Oncology 04/12/19 Chanelle Westfall, PRINCE [address] [place] [address] Specialty Hydrogeologist Hematology/Oncology 03/12/21 [facility] Cashier Relationship Specialty Start Date End Date Mitch Mejia PCP - General Family Practice 01/19/16 Meenu Garay MD, [address] [place] [address] Physician Radiation Oncology 09/06/16 Carla Almonte, RN Specialty Hydrogeologist Oncology 07/06/17 Meenu Garay MD, [address] [place] [address] Physician Radiation Oncology 04/12/19 Chanelle Westfall, RN [address] [place] [address] Specialty Hydrogeologist Hematology/Oncology 03/12/21 [facility] Cashier Relationship Specialty Start Date End Date RobertoMitch Tanvi PCP - General Family Practice 01/19/16 Meenu Garay MD, [address] [place] [address] Physician Radiation Oncology 09/06/16 Carla Almonte, RN Specialty Hydrogeologist Oncology 07/06/17 Meenu Garay MD, [address] [place] [address] Physician Radiation Oncology 04/12/19 Chanelle Westfall RN [address] [place] [address] Specialty Hydrogeologist Hematology/Oncology 03/12/21 [facility] Cashier Relationship Specialty Start Date End Date JonatanmarilyambrocioMitch PCP - General Family Practice 01/19/16 Meenu Garay MD, [address] [place] [address] Physician Radiation Oncology 09/06/16 Carla Almonte RN Specialty Hydrogeologist Oncology 07/06/17 Meenu Garay MD, [address] [place] [address] Physician Radiation Oncology 04/12/19 Chanelle Westfall, PRINCE [address] [place] [address] Specialty Hydrogeologist Hematology/Oncology 03/12/21 [facility] Cashier Relationship Specialty Start Date End Date Mitch Mejia PCP - General Family Practice 01/19/16 Meenu Garay MD, [address] [place] [address] Physician Radiation Oncology 09/06/16 Carla Almonte, RN Specialty Hydrogeologist Oncology 07/06/17 Meenu Garay MD, [address] [place] [address] Physician Radiation Oncology 04/12/19 Chanelle Westfall, PRINCE [address] [place] [address] Specialty Hydrogeologist Hematology/Oncology 03/12/21 [facility] Cashier Relationship Specialty Start Date End Date Mitch Mejia PCP - General Family Practice 01/19/16 Meenu Garay MD, [address] [place] [address] Physician Radiation Oncology 09/06/16 Carla Almonte, RN Specialty Hydrogeologist Oncology 07/06/17 Meenu Garay MD, [address] [place] [address] Physician Radiation Oncology 04/12/19 Chanelle Westfall, PRINEC [address] [place] [address] Specialty Hydrogeologist Hematology/Oncology 03/12/21 [facility] Cashier Relationship Specialty Start Date End Date Mitch Mejia PCP - General Family Practice 01/19/16 Meenu Garay MD, [address] [place] [address] Physician Radiation Oncology 09/06/16 Carla Almonte RN Specialty Hydrogeologist Oncology 07/06/17 Meenu Garay MD, [address] [place] [address] Physician Radiation Oncology 04/12/19 Chanelle Westfall, PRINCE [address] [place] [address] Specialty Hydrogeologist Hematology/Oncology 03/12/21 [facility] Cashier Relationship Specialty Start Date End Date Mitch Mejia PCP - General Family Practice 01/19/16 Meenu Garay MD, [address] [place] [address] Physician Radiation Oncology 09/06/16 Carla Almonte RN Specialty Hydrogeologist Oncology 07/06/17 Meenu Garay MD, [address] [place] [address] Physician Radiation Oncology 04/12/19 Chanelle Westfall, RN [address] [place] [address] Specialty Hydrogeologist Hematology/Oncology 03/12/21 [facility] Cashier Relationship Specialty Start Date End Date Mitch Mejia PCP - General Family Practice 01/19/16 Meenu Garay MD, [address] [place] [address] Physician Radiation Oncology 09/06/16 Carla Almonte RN Specialty Hydrogeologist Oncology 07/06/17 Meenu Garay MD, [address] [place] [address] Physician Radiation Oncology 04/12/19 Chanelle Westfall, RN [address] [place] [address] Specialty Hydrogeologist Hematology/Oncology 03/12/21 [facility] Cashier Relationship Specialty Start Date End Date Mitch Mejia PCP - General Family Practice 01/19/16 Meenu Garay MD, [address] [place] [address] Physician Radiation Oncology 09/06/16 Carla Almonte, RN Specialty Hydrogeologist Oncology 07/06/17 Meenu Garay MD, [address] [place] [address] Physician Radiation Oncology 04/12/19 Chanelle Westfall, PRINCE [address] [place] [address] Specialty Hydrogeologist Hematology/Oncology 03/12/21 [facility] Cashier Relationship Specialty Start Date End Date Mitch Mejia PCP - General Family Practice 01/19/16 Meenu Garay MD, [address] [place] [address] Physician Radiation Oncology 09/06/16 Carla Almonte RN Specialty Hydrogeologist Oncology 07/06/17 Meenu Garay MD, [address] [place] [address] Physician Radiation Oncology 04/12/19 Chanelle Westfall, PRINCE [address] [place] [address] Specialty Hydrogeologist Hematology/Oncology 03/12/21 [facility] Cashier Relationship Specialty Start Date End Date Mitch Mejia PCP - General Family Practice 01/19/16 Meenu Garay MD, [address] [place] [address] Physician Radiation Oncology 09/06/16 Carla Almonte, RN Specialty Hydrogeologist Oncology 07/06/17 Meenu Garay MD, [address] [place] [address] Physician Radiation Oncology 04/12/19 Chanelle Westfall, PR[facility] [address] [place] [address] Specialty Hydrogeologist Hematology/Oncology 03/12/21 [facility] Cashier Relationship Specialty Start Date End Date Mitch Mejia PCP - General Family Practice 01/19/16 Meenu Garay MD, [address] [place] [address] Physician Radiation Oncology 09/06/16 Carla Almonte, RN Specialty Hydrogeologist Oncology 07/06/17 Meenu Garay MD, [address] [place] [address] Physician Radiation Oncology 04/12/19 Chanelle Westfall, PRIN[facility] [address] [place] [address] Specialty Hydrogeologist Hematology/Oncology 03/12/21 [facility] Cashier Relationship Specialty Start Date End Date Mtich Mejia PCP - General Family Practice 01/19/16 Meenu Garay MD, [address] [place] [address] Physician Radiation Oncology 09/06/16 Carla Almonte RN Specialty Hydrogeologist Oncology 07/06/17 Meenu Garay MD, [address] [place] [address] Physician Radiation Oncology 04/12/19 Chanelle Westfall, PRIN[facility] [address] [place] [address] Specialty Hydrogeologist Hematology/Oncology 03/12/21 [facility] Cashier Relationship Specialty Start Date End Date Mitch Mejia PCP - General Family Practice 01/19/16 Meenu Garay MD, [address] [place] [address] Physician Radiation Oncology 09/06/16 Carla Almonte RN Specialty Hydrogeologist Oncology 07/06/17 Meenu Garay MD, [address] [place] [address] Physician Radiation Oncology 04/12/19 Chanelle Westfall, PRIN[facility] [address] [place] [address] Specialty Hydrogeologist Hematology/Oncology 03/12/21 [facility] Cashier Relationship Specialty Start Date End Date Mitch Mejia PCP - General Family Practice 01/19/16 Meenu Garay MD, [address] [place] [address] Physician Radiation Oncology 09/06/16 Carla Almonte RN Specialty Hydrogeologist Oncology 07/06/17 Meenu Garay MD, [address] [place] [address] Physician Radiation Oncology 04/12/19 Chanelle Westfall, RN [address] [place] [address] Specialty Hydrogeologist Hematology/Oncology 03/12/21 [facility] Cashier Relationship Specialty Start Date End Date Mitch Mejia PCP - General Family Practice 01/19/16 Meenu Garay MD, [address] [place] [address] Physician Radiation Oncology 09/06/16 Carla Almonte RN Specialty Hydrogeologist Oncology 07/06/17 Meenu Garay MD, [address] [place] [address] Physician Radiation Oncology 04/12/19 Chanelle Westfall, PRIN[facility] [address] [place] [address] Specialty Hydrogeologist Hematology/Oncology 03/12/21 [facility] Cashier Relationship Specialty Start Date End Date Mitch Mejia PCP - General Family Practice 01/19/16 Meenu Garay MD, [address] [place] [address] Physician Radiation Oncology 09/06/16 Carla Almonte RN Specialty Hydrogeologist Oncology 07/06/17 Meenu Garay MD, [address] [place] [address] Physician Radiation Oncology 04/12/19 Chanelle Westfall, PRINCE [address] [place] [address] Specialty Hydrogeologist Hematology/Oncology 03/12/21 [facility] Cashier Relationship Specialty Start Date End Date Mitch Mejia PCP - General Family Practice 01/19/16 Meenu Garay MD, [address] [place] [address] Physician Radiation Oncology 09/06/16 Carla Almonte, RN Specialty Hydrogeologist Oncology 07/06/17 Meenu Garay MD, [address] [place] [address] Physician Radiation Oncology 04/12/19 Chanelle Westfall, PRIN[facility] [address] [place] [address] Specialty Hydrogeologist Hematology/Oncology 03/12/21 [facility] Cashier Relationship Specialty Start Date End Date Mitch Mejia PCP - General Family Practice 01/19/16 Meenu Garay MD, [address] [place] [address] Physician Radiation Oncology 09/06/16 Carla Almonte, RN Specialty Hydrogeologist Oncology 07/06/17 Meenu Garay MD, [address] [place] [address] Physician Radiation Oncology 04/12/19 Chanelle Westfall, RN [address] [place] [address] Specialty Hydrogeologist Hematology/Oncology 03/12/21 [facility] Cashier Relationship Specialty Start Date End Date Mitch Mejia PCP - General Family Practice 01/19/16 Meenu Garay MD, [address] [place] [address] Physician Radiation Oncology 09/06/16 Carla Almonte RN Specialty Hydrogeologist Oncology 07/06/17 Meenu Garay MD, [address] [place] [address] Physician Radiation Oncology 04/12/19 Chanelle Westfall, PRIN[facility] [address] [place] [address] Specialty Hydrogeologist Hematology/Oncology 03/12/21 [facility] Cashier Relationship Specialty Start Date End Date Mitch Mejia PCP - General Family Practice 01/19/16 Meenu Garay MD, [address] [place] [address] Physician Radiation Oncology 09/06/16 Carla Almonte RN Specialty Hydrogeologist Oncology 07/06/17 Meenu Garay MD, [address] [place] [address] Physician Radiation Oncology 04/12/19 Chanelle Westfall, PRIN[facility] [address] [place] [address] Specialty Hydrogeologist Hematology/Oncology 03/12/21 [facility] Cashier Relationship Specialty Start Date End Date Mitch Mejia PCP - General Family Practice 01/19/16 Meenu Garay MD, [address] [place] [address] Physician Radiation Oncology 09/06/16 Carla Almonte RN Specialty Hydrogeologist Oncology 07/06/17 Meenu Garay MD, [address] [place] [address] Physician Radiation Oncology 04/12/19 Chanelle Westfall, RN [address] [place] [place] [address] Specialty Hydrogeologist Hematology/Oncology 03/12/21 [facility] Cashier Relationship Specialty Start Date End Date Mitch Mejia PCP - General Family Practice 01/19/16 Meenu Garay MD, [address] [place] [address] Physician Radiation Oncology 09/06/16 Carla Almonte, RN Specialty Hydrogeologist Oncology 07/06/17 Meenu Garay MD, [address] [place] [address] Physician Radiation Oncology 04/12/19 Chanelle Westfall, PR[facility] [address] [place] [address] Specialty Hydrogeologist Hematology/Oncology 03/12/21 [facility] Cashier Relationship Specialty Start Date End Date Mitch Mejia PCP - General Family Practice 01/19/16 Meenu Garay MD, [address] [place] [address] Physician Radiation Oncology 09/06/16 Carla Almonte RN Specialty Hydrogeologist Oncology 07/06/17 Meenu Garay MD, [address] [place] [address] Physician Radiation Oncology 04/12/19 Chanelle Westfall, [facility] [address] [place] [address] Specialty Hydrogeologist Hematology/Oncology 03/12/21 [facility] Cashier Relationship Specialty Start Date End Date Mitch Mejia PCP - General Family Practice 01/19/16 Meenu Garay MD, [address] [place] [address] Physician Radiation Oncology 09/06/16 Carla Almonte, RN Specialty Hydrogeologist Oncology 07/06/17 Meenu Garay MD, [address] [place] [address] Physician Radiation Oncology 04/12/19 Chanelle Westfall, RN [address] [place] [address] Specialty Hydrogeologist Hematology/Oncology 03/12/21 [facility] Cashier Relationship Specialty Start Date End Date Mitch Mejia PCP - General Family Practice 01/19/16 Meenu Garay MD, [address] [place] [address] Physician Radiation Oncology 09/06/16 Carla Almonte, RN Specialty Hydrogeologist Oncology 07/06/17 Meenu Garay MD, [address] [place] [address] Physician Radiation Oncology 04/12/19 Chanelle Westfall, PRIN[facility] [address] [place] [address] Specialty Hydrogeologist Hematology/Oncology 03/12/21 [facility] Room Cashier Relationship Specialty Start Date End Date Mitch Mejia PCP - General Family Medicine 01/19/16 Meenu Garay MD, [address] [place] [address] Physician Radiation Oncology 09/06/16 Carla Almonte RN Specialty Hydrogeologist Oncology 07/06/17 Meenu Garay MD, [address] [place] [address] Physician Radiation Oncology 04/12/19 Chanelle Westfall, PRINCE [address] [place] [address] Specialty Hydrogeologist Hematology/Oncology 03/12/21 [facility] Cashier Relationship Specialty Start Date End Date Mitch Mejia PCP - General Family Medicine 01/19/16 Meenu Garay MD, [address] [place] [address] Physician Radiation Oncology 09/06/16 Carla Almonte RN Specialty Hydrogeologist Oncology 07/06/17 Meenu Garay MD, [address] [place] [address] Physician Radiation Oncology 04/12/19 Chanelle Westfall, PRINCE [address] [place] [address] Specialty Hydrogeologist Hematology/Oncology 03/12/21 [facility] Cashier Relationship Specialty Start Date End Date Mitch Mejia PCP - General Family Medicine 01/19/16 Meenu Garay MD, [address] [place] [address] Physician Radiation Oncology 09/06/16 Carla Almonte RN Specialty Hydrogeologist Oncology 07/06/17 Meenu Garay MD, [address] [place] [place] [address] Physician Radiation Oncology 04/12/19 Chanelle Westfall, PRINCE [address] [place] [address] Specialty Hydrogeologist Hematology/Oncology 03/12/21 [facility] Cashier Relationship Specialty Start Date End Date Mitch Mejia PCP - General Family Medicine 01/19/16 Meenu Garay MD, [address] [place] [address] Physician Radiation Oncology 09/06/16 Carla Almonte, RN Specialty Hydrogeologist Oncology 07/06/17 Meenu Garay MD, [address] [place] [place] [address] Physician Radiation Oncology 04/12/19 Chanelle Westfall, PRINCE [address] [place] [address] Specialty Hydrogeologist Hematology/Oncology 03/12/21 [facility] Cashier Relationship Specialty Start Date End Date JonatanmarilyambrocioMitch PCP - General Family Medicine 01/19/16 Meenu Garay MD, [address] [place] [address] Physician Radiation Oncology 09/06/16 Carla Almonte RN Specialty Hydrogeologist Oncology 07/06/17 Meenu Garay MD, [address] [place] [address] Physician Radiation Oncology 04/12/19 Chanelle Westfall RN [address] [place] [address] Specialty Hydrogeologist Hematology/Oncology 03/12/21 [facility] Cashier Relationship Specialty Start Date End Date Mitch Mejia PCP - General Family Medicine 01/19/16 Meenu Garay MD, [address] [place] [place] [address] Physician Radiation Oncology 09/06/16 Carla Almonte, RN Specialty Hydrogeologist Oncology 07/06/17 Meenu Garay MD, [address] [place] [address] Physician Radiation Oncology 04/12/19 Chanelle Westfall, PRINCE [address] [place] [address] Specialty Hydrogeologist Hematology/Oncology 03/12/21 [facility] Cashier Relationship Specialty Start Date End Date Mitch Mejia PCP - General Family Medicine 01/19/16 Meenu Garay MD, [address] [place] [address] Physician Radiation Oncology 09/06/16 Carla Almonte RN Specialty Hydrogeologist Oncology 07/06/17 Meenu Garay MD, [address] [place] [address] Physician Radiation Oncology 04/12/19 Chanelle Westfall, PRINCE [address] [place] [address] Specialty Hydrogeologist Hematology/Oncology 03/12/21 [facility] Cashier Relationship Specialty Start Date End Date Mitch Mejia PCP - General Family Medicine 01/19/16 Meenu Garay MD, [address] [place] [address] Physician Radiation Oncology 09/06/16 Carla Almonte, RN Specialty Hydrogeologist Oncology 07/06/17 Meenu Garay MD, [address] [place] [address] Physician Radiation Oncology 04/12/19 Chanelle Westfall, PRINCE [address] [place] [address] Specialty Hydrogeologist Hematology/Oncology 03/12/21 [facility] Cashier Relationship Specialty Start Date End Date Mitch Mejia PCP - General Family Medicine 01/19/16 Meenu Garay MD, [address] [place] [address] Physician Radiation Oncology 09/06/16 Carla Almonte RN Specialty Hydrogeologist Oncology 07/06/17 Meenu Garay MD, [address] [place] [address] Physician Radiation Oncology 04/12/19 Chanelle Westfall, PRINCE [address] [place] [address] Specialty Hydrogeologist Hematology/Oncology 03/12/21 [facility] Cashier Relationship Specialty Start Date End Date Mitch Mejia PCP - General Family Medicine 01/19/16 Meenu Garay MD, [address] [place] [address] Physician Radiation Oncology 09/06/16 Carla Almonte RN Specialty Hydrogeologist Oncology 07/06/17 Meenu Garay MDMD [address] [place] [address] Physician Radiation Oncology 04/12/19 Chanelle Westfall, PRINCE [address] [place] [address] Specialty Hydrogeologist Hematology/Oncology 03/12/21 [facility] Cashier Relationship Specialty Start Date End Date Mitch Mejia PCP - General Family Medicine 01/19/16 Meenu Garay MD, [address] [place] [address] Physician Radiation Oncology 09/06/16 Carla Almonte, RN Specialty Hydrogeologist Oncology 07/06/17 Meenu Garay MD, [address] [place] [address] Physician Radiation Oncology 04/12/19 Chanelle Westfall RN [address] [place] [address] Specialty Hydrogeologist Hematology/Oncology 03/12/21 [facility] Cashier Relationship Specialty Start Date End Date Mitch Mejia PCP - General Family Medicine 01/19/16 Meenu Garay MD, [address] [place] [address] Physician Radiation Oncology 09/06/16 Carla Almonte RN Specialty Hydrogeologist Oncology 07/06/17 Meenu Garay MD, [address] [place] [address] Physician Radiation Oncology 04/12/19 Chanelle Westfall RN [address] [place] [address] Specialty Hydrogeologist Hematology/Oncology 03/12/21 [facility] Cashier Relationship Specialty Start Date End Date Mitch Mejia PCP - General Family Medicine 01/19/16 Meenu Garay MD, [address] [place] [address] Physician Radiation Oncology 09/06/16 Carla Almonte, RN Specialty Hydrogeologist Oncology 07/06/17 Meenu Garay MD, [address] [place] [address] Physician Radiation Oncology 04/12/19 Chanelle Westfall, PRINCE [address] [place] [address] Specialty Hydrogeologist Hematology/Oncology 03/12/21 [facility] Cashier Relationship Specialty Start Date End Date Mitch Mejia PCP - General Family Medicine 01/19/16 Meenu Garay MD, [address] [place] [address] Physician Radiation Oncology 09/06/16 Carla Almonte RN Specialty Hydrogeologist Oncology 07/06/17 Meenu Garay MD, [address] [place] [address] Physician Radiation Oncology 04/12/19 Chanelle Westfall, PRINCE [address] [place] [address] Specialty Hydrogeologist Hematology/Oncology 03/12/21 [facility] Cashier Relationship Specialty Start Date End Date Mitch Mejia PCP - General Family Medicine 01/19/16 Meenu Garay MD, [address] [place] [address] Physician Radiation Oncology 09/06/16 Carla Almonte RN Specialty Hydrogeologist Oncology 07/06/17 Meenu Garay MD, [address] [place] [address] Physician Radiation Oncology 04/12/19 Chanelle Westfall, PRINCE [address] [place] [address] Specialty Hydrogeologist Hematology/Oncology 03/12/21 [facility] Cashier Relationship Specialty Start Date End Date Mitch Mejai PCP - General Family Medicine 01/19/16 Meenu Garay MD, [address] [place] [address] Physician Radiation Oncology 09/06/16 Carla Almonte RN Specialty Hydrogeologist Oncology 07/06/17 Meenu Garay MD, [address] [place] [address] Physician Radiation Oncology 04/12/19 Chanelle Westfall, PRINCE [address] [place] [address] Specialty Hydrogeologist Hematology/Oncology 03/12/21 [facility] Cashier Relationship Specialty Start Date End Date Mitch Mejia PCP - General Family Medicine 01/19/16 Meenu Garay MD, [address] [place] [address] Physician Radiation Oncology 09/06/16 Carla Almonte RN Specialty Hydrogeologist Oncology 07/06/17 Meenu Garay MD, [address] [place] [address] Physician Radiation Oncology 04/12/19 Chnaelle Westfall, RN [address] [place] [address] Specialty Hydrogeologist Hematology/Oncology 03/12/21 Team Status: Active Member Role Status Dates Dr. Mitch Mejia MD Family Provider Active Dr. Mitch Mejia MD Primary Care Provider Active Team Status: Inactive Member Role Status Dates Dr. Mitch Mejia MD Primary [facility] Provider[facility] Dr. Mayco Galeano MD Attending Provider Active Team Status: Active Member Role Status Dates Dr. Mitch Mejia MD Primary Care Provider Active Dr. Mayco Galeano MD Attending Provider Active Team Status: Inactive Member Role Status Dates Dr. Mitch Mejia MD Primary Care Provider Active Caity Cote DEVELOPER EVANGELIST, DEVELOPER EVANGELIST-C Attending Provider Active [facility] Cashier Relationship Specialty Start Date End Date Mitch Mejia PCP - General Family Medicine 01/19/16 Meenu Garay MD, [address] [place] [address] Physician Radiation Oncology 09/06/16 Carla Almonte RN Specialty Hydrogeologist Oncology 07/06/17 Meenu Garay MD, [address] [place] [address] Physician Radiation Oncology 04/12/19 Chanelle Westfall, PRINCE [address] [place] [address] Specialty Hydrogeologist Hematology/Oncology 03/12/21 [facility] Cashier Relationship Specialty Start Date End Date Mitch Mejia PCP - General Family Medicine 01/19/16 Meenu Garay MD, [address] [place] [address] Physician Radiation Oncology 09/06/16 Carla Almonte, RN Specialty Hydrogeologist Oncology 07/06/17 Meenu Garay MD, [address] [place] [address] Physician Radiation Oncology 04/12/19 Chanelle Westfall, PRINCE [address] [place] [address] Specialty Hydrogeologist Hematology/Oncology 03/12/21 [facility] Cashier Relationship Specialty Start Date End Date Mitch Mejia PCP - General Family Medicine 01/19/16 Meenu Garay MD, [address] [place] [address] Physician Radiation Oncology 09/06/16 Carla Almonte RN Specialty Hydrogeologist Oncology 07/06/17 Meenu Garay MD, [address] [place] [address] Physician Radiation Oncology 04/12/19 Chanelle Westfall, PRINCE [address] [place] [address] Specialty Hydrogeologist Hematology/Oncology 03/12/21 [facility] Cashier Relationship Specialty Start Date End Date Mitch Mejia PCP - General Family Medicine 01/19/16 Meenu Garay MD, [address] [place] [address] Physician Radiation Oncology 09/06/16 Carla Almonte RN Specialty Hydrogeologist Oncology 07/06/17 Meenu Garay MD, [address] [place] [address] Physician Radiation Oncology 04/12/19 Chanelle Westfall, PRINCE [address] [place] [address] Specialty Hydrogeologist Hematology/Oncology 03/12/21 [facility] Cashier Relationship Specialty Start Date End Date Mitch Mejia PCP - General Family Medicine 01/19/16 Meenu Garay MD, [address] [place] [address] Physician Radiation Oncology 09/06/16 Carla Almonte RN Specialty Hydrogeologist Oncology 07/06/17 Meenu Garay MD, [address] [place] [address] Physician Radiation Oncology 04/12/19 Chanelle Westfall, PRINCE [address] [place] [address] Specialty Hydrogeologist Hematology/Oncology 03/12/21 [facility] Cashier Relationship Specialty Start Date End Date Mitch Mejia PCP - General Family Medicine 01/19/16 Meenu Garay MD, [address] [place] [address] Physician Radiation Oncology 09/06/16 Carla Almonte RN Specialty Hydrogeologist Oncology 07/06/17 Meenu Garay MD, [address] [place] [address] Physician Radiation Oncology 04/12/19 Chanelle Westfall RN [address] [place] [address] Specialty Hydrogeologist Hematology/Oncology 03/12/21 [place] [address] [place] [address] Cardiology 08/18/22 [facility] Cashier Relationship Specialty Start Date End Date Mitch Mejia PCP - General Family Medicine 01/19/16 Meenu Garay MD, [address] [place] [address] Physician Radiation Oncology 09/06/16 Carla Almonte, RN Specialty Hydrogeologist Oncology 07/06/17 Meenu Garay MD, [address] [place] [address] Physician Radiation Oncology 04/12/19 Chanelle Westfall, PRIN[place] [address] [place] [place] [address] Specialty Hydrogeologist Hematology/Oncology 03/12/21 [place] [address] [place] [address] Cardiology 08/18/22 [facility] Cashier Relationship Specialty Start Date End Date Mitch Mejia PCP - General Family Medicine 01/19/16 Meenu Garay MD, [address] [place] [address] Physician Radiation Oncology 09/06/16 Carla Almonte, RN Specialty Hydrogeologist Oncology 07/06/17 Meenu Garay MD, [address] [place] [place] [address] Physician Radiation Oncology 04/12/19 Chanelle Westfall, [place]IN[facility] [address] [place] [address] Specialty Hydrogeologist Hematology/Oncology 03/12/21 [place] [address] [place] [address] Cardiology 08/18/22 [facility] Cashier Relationship Specialty Start Date End Date Mitch Mejia PCP - General Family Medicine 01/19/16 Meenu Garay MD, [address] [place] [address] Physician Radiation Oncology 09/06/16 Carla Almonte RN Specialty Hydrogeologist Oncology 07/06/17 Meenu Garay MD, [address] [place] [address] Physician Radiation Oncology 04/12/19 Chanelle Westfall RN [address] [place] [address] Specialty Hydrogeologist Hematology/Oncology 03/12/21 [place] [address] [place] [address] Cardiology 08/18/22 [facility] Cashier Relationship Specialty Start Date End Date Mitch Mejia PCP - General Family Medicine 01/19/16 Meenu Garay MD, [address] [place] [place] [address] Physician Radiation Oncology 09/06/16 Carla Almonte RN Specialty Hydrogeologist Oncology 07/06/17 Meenu Garay MD, [address] [place] [address] Physician Radiation Oncology 04/12/19 Chanelle Westfall, [place] [address] [place] [address] Specialty Hydrogeologist Hematology/Oncology 03/12/21 [place] [address] [place] [address] Cardiology 08/18/22 [facility] Cashier Relationship Specialty Start Date End Date Mitch Mejia PCP - General Family Medicine 01/19/16 Meenu Garay MD, [address] [place] [address] Physician Radiation Oncology 09/06/16 Carla Almonte RN Specialty Hydrogeologist Oncology 07/06/17 Meenu Garay MD, [address] [place] [address] Physician Radiation Oncology 04/12/19 Chanelle Westfall RN [address] [place] [address] Specialty Hydrogeologist Hematology/Oncology 03/12/21 [place], [place] [address] [place] [address] Cardiology 08/18/22 [facility] Cashier Relationship Specialty Start Date End Date Mitch Mejia PCP - General Family Medicine 01/19/16 Meenu Garay MD, [address] [place] [address] Physician Radiation Oncology 09/06/16 Carla Almonte RN Specialty Hydrogeologist Oncology 07/06/17 Meenu Garay MD, [address] [place] [address] Physician Radiation Oncology 04/12/19 Chanelle Westfall, [place] [address] [place] [address] Specialty Hydrogeologist Hematology/Oncology 03/12/21 [place], [place] [address] [place] [address] Cardiology 08/18/22 [facility] Cashier Relationship Specialty Start Date End Date Mitch Mejia PCP - General Family Medicine 01/19/16 Meenu Garay MD, [address] [place] [address] Physician Radiation Oncology 09/06/16 Carla Almonte RN Specialty Hydrogeologist Oncology 07/06/17 Meenu Garay MD, [address] [place] [address] Physician Radiation Oncology 04/12/19 Chanelle Westfall, PRINCE [address] [place] [address] Specialty Hydrogeologist Hematology/Oncology 03/12/21 [place], [place] [address] [place] [address] Cardiology 08/18/22 [facility] Cashier Relationship Specialty Start Date End Date Mitch Mejia PCP - General Family Medicine 01/19/16 Meenu Garay MD, [address] [place] [address] Physician Radiation Oncology 09/06/16 Doup, Carla, RN Specialty Hydrogeologist Oncology 07/06/17 Meenu Garay MD, [address] [place] [address] Physician Radiation Oncology 04/12/19 Chanelle Westfall, PRIN[place] [address] [place] [address] Specialty Hydrogeologist Hematology/Oncology 03/12/21 [place], [place] [address] [place] [address] Cardiology 08/18/22 [facility] Cashier Relationship Specialty Start Date End Date Mitch Mejia PCP - General Family Medicine 01/19/16 Meenu Garay MD, [address] [place] [address] Physician Radiation Oncology 09/06/16 Carla Almonte RN Specialty Hydrogeologist Oncology 07/06/17 Meenu Garay MD, [address] [place] [address] Physician Radiation Oncology 04/12/19 Chanelle Westfall, PRIN[place] [address] [place] [address] Specialty Hydrogeologist Hematology/Oncology 03/12/21 [place], [place] [address] [place] [address] Cardiology 08/18/22 [facility] Cashier Relationship Specialty Start Date End Date Mitch Mejia PCP - General Family Medicine 01/19/16 Meenu Garay MD, [address] [place] [address] Physician Radiation Oncology 09/06/16 Carla Almonte, RN Specialty Hydrogeologist Oncology 07/06/17 Meenu Garay MD, [address] [place] [address] Physician Radiation Oncology 04/12/19 Chanelle Westfall, PRIN[place] [address] [place] [address] Specialty Hydrogeologist Hematology/Oncology 03/12/21 [place] [address] [place] [address] Cardiology 08/18/22 [facility] Cashier Relationship Specialty Start Date End Date Mitch Mejia PCP - General Family Medicine 01/19/16 Meenu Garay MD, [address] [place] [address] Physician Radiation Oncology 09/06/16 Carla Almonte, RN Specialty Hydrogeologist Oncology 07/06/17 Meenu Garay MD, [address] [place] [place] [address] Physician Radiation Oncology 04/12/19 Chanelle Westfall, [place] [address] [place] [address] Specialty Hydrogeologist Hematology/Oncology 03/12/21 [place], [place] [address] [place] [address] Cardiology 08/18/22 [facility] Cashier Relationship Specialty Start Date End Date Mitch Mejia PCP - General Family Medicine 01/19/16 Meenu Garay MD, [address] [place] [address] Physician Radiation Oncology 09/06/16 Carla Almonte, RN Specialty Hydrogeologist Oncology 07/06/17 Meenu Garay MD, [address] [place] [address] Physician Radiation Oncology 04/12/19 Chanelle Westfall, PRIN[place] [address] [place] [address] Specialty Hydrogeologist Hematology/Oncology 03/12/21 [place], [place] [address] [place] [address] Cardiology 08/18/22 [facility] Cashier Relationship Specialty Start Date End Date Mitch Mejia PCP - General Family Medicine 01/19/16 Meenu Garay MD, [address] [place] [address] Physician Radiation Oncology 09/06/16 Carla Almonte, RN Specialty Hydrogeologist Oncology 07/06/17 Meenu Garay MD, [address] [place] [address] Physician Radiation Oncology 04/12/19 Chanelle eWstfall, PRINCE [address] [place] [address] Specialty Hydrogeologist Hematology/Oncology 03/12/21 [place], [place] [address] [place] [address] Cardiology 08/18/22 [facility] Cashier Relationship Specialty Start Date End Date Mitch Mejia PCP - General Family Medicine 01/19/16 Meenu Garay MD, [address] [place] [address] Physician Radiation Oncology 09/06/16 Carla Almonte, RN Specialty Hydrogeologist Oncology 07/06/17 Meenu Garay MD, [address] [place] [address] Physician Radiation Oncology 04/12/19 Chanelle Westfall RN [address] [place] [address] Specialty Hydrogeologist Hematology/Oncology 03/12/21 12/13/22 Mayco Galeano [address] [place] [address] Cardiology 08/18/22 [facility] Cashier Relationship Specialty Start Date End Date Mitch Mejia PCP - General Family Medicine 01/19/16 Meenu Garay MD, [address] [place] [address] Physician Radiation Oncology 09/06/16 Carla Almonte, RN Specialty Hydrogeologist Oncology 07/06/17 Meenu Garay MD, [address] [place] [address] Physician Radiation Oncology 04/12/19 Mayco Galeano [address] [place] [address] Cardiology 08/18/22 [facility] Cashier Relationship Specialty Start Date End Date Mitch Mejia PCP - General Family Medicine 01/19/16 Meenu Garay MD, [address] [place] [address] Physician Radiation Oncology 09/06/16 Carla Almonte, RN Specialty Hydrogeologist Oncology 07/06/17 Meenu Garay MD, [address] [place] [address] Physician Radiation Oncology 04/12/19 [place] Galeano S [address] [place] [address] Cardiology 08/18/22 [facility] Cashier Relationship Specialty Start Date End Date Mitch Mejia PCP - General Family Medicine 01/19/16 Meenu Garay MD, MD [address] [place] [address] Physician Radiation Oncology 09/06/16 Carla Almonte, RN Specialty Hydrogeologist Oncology 07/06/17 Meenu Garay MD, MD [address] [place] [address] Physician Radiation Oncology 04/12/19 Mayco Galeano S [address] [place] [address] Cardiology 08/18/22 [facility] Cashier Relationship Specialty Start Date End Date Mitch Mejia PCP - General Family Medicine 01/19/16 Meenu Garay MD, MD [address] [place] [address] Physician Radiation Oncology 09/06/16 Carla Almonte RN Specialty Hydrogeologist Oncology 07/06/17 Meenu Garay MD, [address] [place] [address] Physician Radiation Oncology 04/12/19 Mayco Galeano [address] [place] [address] Cardiology 08/18/22 [facility] Cashier Relationship Specialty Start Date End Date Mitch Mejia PCP - General Family Medicine 01/19/16 Meenu Garay MD, [address] [place] [address] Physician Radiation Oncology 09/06/16 Carla Almonte RN Specialty Hydrogeologist Oncology 07/06/17 Meenu Garay MD, MD [address] [place] [address] Physician Radiation Oncology 04/12/19 Mayco Galeano [address] [place] [address] Cardiology 08/18/22 [facility] Cashier Relationship Specialty Start Date End Date Mitch Mejia PCP - General Family Medicine 01/19/16 Meenu Garay MD, [address] [place], [place] [address] Physician Radiation Oncology 09/06/16 Carla Almonte, RN Specialty Hydrogeologist Oncology 07/06/17 Meenu Garay MD, MD [address] [place], [place] [address] Physician Radiation Oncology 04/12/19 Mayco Galeano [address] [place] [address] Cardiology 08/18/22 Team Status: Inactive Member Role Status Dates Dr. Mitch Mejia MD Primary Care Provider, Referrin g Provider Active Renetta Yang DEVELOPER EVANGELIST, DEVELOPER EVANGELIST-C Attending Provider Active Team Status: Inactive Member Role Status Dates Dr. Mitch Mejia MD Primary Care Provider Active Dr. Rip Rivers DO Attending Provider, Referring Prov ider Active [facility] Cashier Relationship Specialty Start Date End Date Mitch Mejia PCP - General Family Medicine 01/19/16 Meenu Garay MD, [address] [place] [address] Physician Radiation Oncology 09/06/16 Carla Almonte, RN Specialty Hydrogeologist Oncology 07/06/17 Meenu Garay MD, [address] [place], [place] [address] Physician Radiation Oncology 04/12/19 Mayco Galeano [address] [place] [address] Cardiology 08/18/22 [facility] Cashier Relationship Specialty Start Date End Date Mitch Mejia PCP - General Family Medicine 01/19/16 Meenu Garay MD, [address] [place], [place] [address] Physician Radiation Oncology 09/06/16 Carla Almonte RN Specialty Hydrogeologist Oncology 07/06/17 Meenu Garay MD, [address] [place], [place] [address] Physician Radiation Oncology 04/12/19 Mayco Galeano [address] [facility] [address] [place] [address] Cardiology 08/18/22 Team Status: Active Member Role [...] Dr. Malika Garay DO Attending Provider Active [facility] Cashier Relationship Specialty Start Date End Date Mitch Mejia PCP - General Family Medicine 01/19/16 Meenu Garay MD, MD [address] [place] [address] Physician Radiation Oncology 09/06/16 Carla Almonte RN Specialty Hydrogeologist Oncology 07/06/17 Meenu Garay MD, [address] [place] [address] Physician Radiation Oncology 04/12/19 Mayco Galeano [address] [place] [address] Cardiology 08/18/22 [facility] Cashier Relationship Specialty Start Date End Date Mitch Mejia PCP - General Family Medicine 01/19/16 Meenu Garay MD, [address] [place] [address] Physician Radiation Oncology 09/06/16 Carla Almonte RN Specialty Hydrogeologist Oncology 07/06/17 Meenu Garay MD, MD [address] [place] [address] Physician Radiation Oncology 04/12/19 Mayco Galeano MD [address] [place], [place] [address] Cardiology 08/18/22 Hotel [facility] Room Cashier Relationship Specialty Start Date End Date Mitch Mejia PCP - General Family Medicine 01/19/16 Meenu Garay MD, [address] [place] [address] Physician Radiation Oncology 09/06/16 Carla Almonte, RN Specialty Hydrogeologist Oncology 07/06/17 Meenu Garay MD, [address] [place] [address] Physician Radiation Oncology 04/12/19 Mayco Galeano MD [address] [place] [address] Cardiology 08/18/22 [facility] Room Cashier Relationship Specialty Start Date End Date Mitch Mejia PCP - General Family Medicine 01/19/16 Meenu Garay MD, [address] [place] [address] Physician Radiation Oncology 09/06/16 Carla Almonte, RN Specialty Hydrogeologist Oncology 07/06/17 Meenu Garay MD, [address] [place] [address] Physician Radiation Oncology 04/12/19 Mayco Galeano MD [address] [place] [address] Cardiology 08/18/22 [facility] Cashier Relationship Specialty Start Date End Date Mitch Mejia MD PCP - General Family Medicine 01/19/16 Meenu Garay MD, [address] [place] [address] Physician Radiation Oncology 09/06/16 Carla Almonte, PRINCE Specialty Hydrogeologist Oncology 07/06/17 Meenu Garay MD, [address] [place] [address] Physician Radiation Oncology 04/12/19 Mayco Galeano MD [address] [place] [address] Cardiology 08/18/22 [facility] Cashier Relationship Specialty Start Date End Date Mitch Mejia MD PCP - General Family Medicine 01/19/16 Meenu Garay MD, [address] [place] [address] Physician Radiation Oncology 09/06/16 Carla Almonte RN Specialty Hydrogeologist Oncology 07/06/17 Meenu Garay MD, [address] [place] [address] Physician Radiation Oncology 04/12/19 Mayco Galeano MD [address] [place] [address] Cardiology 08/18/22 [facility] D[facility] Room Cashier Relationship Specialty Start Date End Date Mitch Mejia MD PCP - General Family Medicine 01/19/16 Meenu Garay MD, [address] [place] [address] Physician Radiation Oncology 09/06/16 Carla Almonte RN Specialty Hydrogeologist Oncology 07/06/17 Meenu Garay MD, MD [address] [place] [address] Physician Radiation Oncology 04/12/19 Mayco Galeano MD [address] [place] [address] Cardiology 08/18/22 [facility] D[facility] Room Cashier Relationship Specialty Start Date End Date Mitch Mejia MD PCP - General Family Medicine 01/19/16 Meenu Garay MD, [address] [place] [address] Physician Radiation Oncology 09/06/16 Carla Almonte RN Specialty Hydrogeologist Oncology 07/06/17 Meenu Garay MD, [address] [place] [place] [address] Physician Radiation Oncology 04/12/19 Mayco Galeano MD [address] [place] [address] Cardiology 08/18/22 [facility] Cashier Relationship Specialty Start Date End Date Mitch Mejia MD PCP - General Family Medicine 01/19/16 Meenu Garay MD, [address] [place] [address] Physician Radiation Oncology 09/06/16 Carla Almonte RN Specialty Hydrogeologist Oncology 07/06/17 Meenu Garay MD, MD [address] [place] [address] Physician Radiation Oncology 04/12/19 Mayco Galeano MD [address] [place] [address] Cardiology 08/18/22 [facility] Cashier Relationship Specialty Start Date End Date Mitch Mejia MD PCP - General Family Medicine 01/19/16 Meenu Garay MD, [address] [place] [address] Physician Radiation Oncology 09/06/16 Carla Almonte RN Specialty Hydrogeologist Oncology 07/06/17 Meenu Garay MD, [address] [place] [address] Physician Radiation Oncology 04/12/19 Mayco Galeano MD [address] [place] [address], [place] [address] Cardiology 08/18/22 [facility] Cashier Relationship Specialty Start Date End Date Mitch Mejia MD PCP - General Family Medicine 01/19/16 Meenu Garay MD, MD [address] [place] [address] Physician Radiation Oncology 09/06/16 Carla Almonte RN Specialty Hydrogeologist Oncology 07/06/17 Meenu Garay MD, MD [address] [place] [address] Physician Radiation Oncology 04/12/19 Chanelle Westfall, PRINCE [address] [place] [address] Specialty Hydrogeologist Hematology/Oncology 03/12/21 12/13/22 Mayco Galeano MD [address] [place] [address] Cardiology 08/18/22 [facility] Cashier Relationship Specialty Start Date End Date Mitch Mejia MD PCP - General Family Medicine 01/19/16 Meenu Garay MD, MD [address] [place] [address] Physician Radiation Oncology 09/06/16 Carla Almonte RN Specialty Hydrogeologist Oncology 07/06/17 Meenu Garay MD, MD [address] [place] [address] Physician Radiation Oncology 04/12/19 Chanelle Westfall, PRINCE [address] [place] [address] Specialty Hydrogeologist Hematology/Oncology 03/12/21 12/13/22 Mayco Galeano MD [address] [place] [address] Cardiology 08/18/22 [facility] Cashier Relationship Specialty Start Date End Date Mitch Mejia MD PCP - General Family Medicine 01/19/16 Meenu Garay MD, [address] [place] [address] Physician Radiation Oncology 09/06/16 Carla Almonte RN Specialty Hydrogeologist Oncology 07/06/17 Meenu Garay MD, [address] [place] [address] Physician Radiation Oncology 04/12/19 Chanelle Westfall, PRINCE [address] [place] [address] Specialty Hydrogeologist Hematology/Oncology 03/12/21 12/13/22 Mayco Galeano MD [address] [place] [address] Cardiology 08/18/22 [facility] D[facility] Cashier Relationship Specialty Start Date End Date Mitch Mejia MD PCP - General Family Medicine 01/19/16 Meenu Garay MD, [address] [place] [address] Physician Radiation Oncology 09/06/16 Carla Almonte RN Specialty Hydrogeologist Oncology 07/06/17 Meenu Garay MD, [address] [place] [address] Physician Radiation Oncology 04/12/19 Chanelle Westfall RN [address] [place] [address] Specialty Hydrogeologist Hematology/Oncology 03/12/21 12/13/22 [facility] Cashier Relationship Specialty Start Date End Date Mitch Mejia MD PCP - General Family Medicine 01/19/16 Meenu Garay MD, [address] [place] [place] [address] Physician Radiation Oncology 09/06/16 Carla Almonte RN Specialty Hydrogeologist Oncology 07/06/17 Meenu Garay MD, [address] [place] [address] Physician Radiation Oncology 04/12/19 Mayco Galeano MD [address] [place] [address] Cardiology 08/18/22 [facility] D[facility] Cashier Relationship Specialty Start Date End Date Mitch Mejia MD PCP - General Family Medicine 01/19/16 Meenu Garay MD, [address] [place] [address] Physician Radiation Oncology 09/06/16 Carla Almonte RN Specialty Hydrogeologist Oncology 07/06/17 Meenu Garay MD, [address] [place] [place] [address] Physician Radiation Oncology 04/12/19 Mayco Galeano MD [address] [place] [address] Cardiology 08/18/22 [facility] D[facility] Cashier Relationship Specialty Start Date End Date Mitch Mejia MD PCP - General Family Medicine 01/19/16 Meenu Garay MD, [address] [place] [address] Physician Radiation Oncology 09/06/16 Carla Almonte, RN Specialty Hydrogeologist Oncology 07/06/17 Meenu Garay MD, [address] [place] [address] Physician Radiation Oncology 04/12/19 Chanelle Westfall RN [address] [place] [address] Specialty Hydrogeologist Hematology/Oncology 03/12/21 12/13/22 Mayco Galeano MD [address] [place] [address] Cardiology 08/18/22 [facility] Cashier Relationship Specialty Start Date End Date Mitch Mejia MD PCP - General Family Medicine 01/19/16 Meenu Garay MD, MD [address] [place] [address] Physician Radiation Oncology 09/06/16 Carla Almonte, RN Specialty Hydrogeologist Oncology 07/06/17 Meenu Garay MD, [address] [place] [address] Physician Radiation Oncology 04/12/19 Mayco Galeano MD [address] [place], [place] [address] Cardiology 08/18/22 [facility] D[facility] Cashier Relationship Specialty Start Date End Date Mitch Mejia MD PCP - General Family Medicine 01/19/16 Meenu Garay MD, MD [address] [place], [place] [address] [phone] Physician Radiation Oncology 09/06/16 Carla Almonte RN Specialty Hydrogeologist Oncology 07/06/17 Meenu Garay MD, [address] [place] [address] Physician Radiation Oncology 04/12/19 Chanelle Westfall RN [address] [place] [address] Specialty Hydrogeologist Hematology/Oncology 03/12/21 12/13/22 [facility] D[facility] Cashier Relationship Specialty Start Date End Date Mitch Mejia MD PCP - General Family Medicine 01/19/16 Meenu Garay MD, MD [address] [place] [address] Physician Radiation Oncology 09/06/16 Carla Almonte RN Specialty Hydrogeologist Oncology 07/06/17 Meenu Garay MD, MD [address] [place] [address] Physician Radiation Oncology 04/12/19 Chanelle Westfall RN [address] [place], [place] [address] [phone] Specialty Hydrogeologist Hematology/Oncology 03/12/21 12/13/22 [facility] D[facility] Cashier Relationship Specialty Start Date End Date Mitch Mejia MD PCP - General Family Medicine 01/19/16 Meenu Garay MD, MD [address] [place] [address] Physician Radiation Oncology 09/06/16 Carla Almonte RN Specialty Hydrogeologist Oncology 07/06/17 Meenu Garay MD, MD [address] [place] [address] Physician Radiation Oncology 04/12/19 Chanelle Westfall RN [address] [place] [address] Specialty Hydrogeologist Hematology/Oncology 03/12/21 12/13/22 [facility] D[facility] Cashier Relationship Specialty Start Date End Date Mitch Mejia MD PCP - General Family Medicine 01/19/16 Meenu Garay MD, MD [address] [place] [address] Physician Radiation Oncology 09/06/16 Carla Almonte RN Specialty Hydrogeologist Oncology 07/06/17 Meenu Garay MD, MD [address] [place] [address] Physician Radiation Oncology 04/12/19 Mayco Galeano MD [address] [place] [address], [place] [address] Cardiology 08/18/22 [facility] D[facility] Cashier Relationship Specialty Start Date End Date Williams Farrell DO 53 [facility] Physician [place] [id number] PCP - General Internal Medicine 04/26/23 Meenu Garay MD, [address] [place] [address] Physician Radiation Oncology 09/06/16 Carla Almonte RN Specialty Hydrogeologist Oncology 07/06/17 Meenu Garay MD, [address] [place] [address] Physician Radiation Oncology 04/12/19 Mayco Galeano MD [address] [place] [address], [place] [address] Cardiology 08/18/22 [facility] D[facility] Cashier Relationship Specialty Start Date End Date Williams Farrell DO 53 [facility] [place] [address] PCP - General Internal Medicine 04/26/23 Meenu Garay MD, [address] [place] [address] Physician Radiation Oncology 09/06/16 Carla Almonte RN Specialty Hydrogeologist Oncology 07/06/17 Meenu Garay MD, [address] [place] [address] Physician Radiation Oncology 04/12/19 Mayco Galeano MD [address] [place] [address] Cardiology 08/18/22 Hotel [facility] Dining Room Cashier Relationship Specialty Start Date End Date Williams Farrell DO 53 [facility] [place] [address] PCP - General Internal Medicine 04/26/23 Meenu Garay MD, MD [address] [place] [address] Physician Radiation Oncology 09/06/16 Carla Almonte RN Specialty Hydrogeologist Oncology 07/06/17 Meenu Garay MD, MD [address] [place] [address] Physician Radiation Oncology 04/12/19 Mayco Galeano MD [address] [place] [address] Cardiology 08/18/22 Team Status: Active Member Role Status Dates Dr. Mitch Mejia MD Family Provider Active Dr. Williams Farrell DO Primary Care Provider Active Team Status: Inactive Member Role Status Dates Dr. Mitch Mejia MD Referring Provider Active Renetta Yang DEVELOPER EVANGELIST, DEVELOPER EVANGELIST-C Attending Provider Active Dr. Williams Farrell DO Primary Care Provider Active Team Status: Active Member Role Status Dates Dr. Williams Farrell DO Primary Care Provider Active Dr. Mayco Galeano MD Attending Provider Active Team Status: Inactive Member Role Status Dates Dr. Rip Rivers DO Attending Provider, Referring Prov ider Active Dr. Williams Farrell DO Primary Care Provider Active [facility] Cashier Relationship Specialty Start Date End Date Williams Farrell DO 53 [facility] [place] [address] PCP - General Internal Medicine 04/26/23 Meenu Garay MD [address] [place] [place] [address] Physician Radiation Oncology 09/06/16 Carla Almonte RN Specialty Hydrogeologist Oncology 07/06/17 Meenu Garay MD [address] [place] [address] Physician Radiation Oncology 04/12/19 Mayco Galeano MD [address] [place] [address] Cardiology 08/18/22 [facility] D[facility] Cashier Relationship Specialty Start Date End Date Williams Farrell DO 53 [facility] [place] [address] PCP - General Internal Medicine 04/26/23 Meenu Garay MD [address] [place] [address] Physician Radiation Oncology 09/06/16 Carla Almonte RN Specialty Hydrogeologist Oncology 07/06/17 Meenu Garay MD [address] [place] [address] Physician Radiation Oncology 04/12/19 Mayco Galeano MD [address] [place] [address] Cardiology 08/18/22 [facility] D[facility] Cashier Relationship Specialty Start Date End Date Williams Farrell DO 53 [facility] [place] [address] PCP - General Internal Medicine 04/26/23 Meenu Garay MD [address] [place] [address] [address] Physician Radiation Oncology 09/06/16 Carla Almonte, RN Specialty Hydrogeologist Oncology 07/06/17 Meenu Garay MD [address] [place] [address] Physician Radiation Oncology 04/12/19 Mayco Galeano MD [address] [place] [address] Cardiology 08/18/22 [facility] D[facility] Cashier Relationship Specialty Start Date End Date Williams Farrell DO 53 [facility] Physician [facility] [place] [address] PCP - General Internal Medicine 04/26/23 Meenu Garay MD [address] [address] Physician Radiation Oncology 09/06/16 Carla Almonte RN Specialty Hydrogeologist Oncology 07/06/17 Meenu Garay MD [address] [place] [address] Physician Radiation Oncology 04/12/19 Mayco Galeano MD [address] [place] [address] Cardiology 08/18/22 [facility] D[facility] Cashier Relationship Specialty Start Date End Date Williams Farrell DO 53 [facility] [place] [address] PCP - General Internal Medicine 04/26/23 Meenu Garay MD [address] [place] [place] [address] Physician Radiation Oncology 09/06/16 Carla Almonte RN Specialty Hydrogeologist Oncology 07/06/17 Meenu Garay MD [address] [place] [place] [address] Physician Radiation Oncology 04/12/19 Mayco Galeano MD [address] [place] [address] Cardiology 08/18/22 [facility] Cashier Relationship Specialty Start Date End Date Williams Farrell DO 53 [facility] [place] [address] PCP - General Internal Medicine 04/26/23 Meenu Garay MD [address] [place] [place] [address] Physician Radiation Oncology 09/06/16 Carla Almonte RN Specialty Hydrogeologist Oncology 07/06/17 Meenu Garay MD [address] [place] [address] Physician Radiation Oncology 04/12/19 Mayco Galeano MD [address] [place] [address] Cardiology 08/18/22 [facility] Cashier Relationship Specialty Start Date End Date Williams Farrell DO 53 [facility] Physician [facility] [place] [address] PCP - General Internal Medicine 04/26/23 Meenu Garay MD [address] [place] [address] Physician Radiation Oncology 09/06/16 Carla Almonte RN Specialty Hydrogeologist Oncology 07/06/17 Meenu Garay MD [address] [place] [place] [address] Physician Radiation Oncology 04/12/19 Mayco Galeano MD [address] [place] [address] Cardiology 08/18/22 [facility] D[facility] Cashier Relationship Specialty Start Date End Date Williams Farrell DO 53 [facility] [place] [address] PCP - General Internal Medicine 04/26/23 Meenu Garay MD [address] [place] [place] [address] Physician Radiation Oncology 09/06/16 Carla Almonte RN Specialty Hydrogeologist Oncology 07/06/17 Meenu Garay MD [address] [place] [place] [address] Physician Radiation Oncology 04/12/19 Mayco Galeano MD [address] [facility] [address] [place], [place] [address]- Cardiology 08/18/22 Team Status: Inactive Member Role Status Dates Dr. Williams Farrell DO Primary Care Provider Active Dr. Eze Mack MD Emergency Provider Active [facility] Cashier Relationship Specialty Start Date End Date Williams Farrell DO 53 [facility] [place] [address] PCP - General Internal Medicine 04/26/23 Meenu Garay MD [address] [place] [address] Physician Radiation Oncology 09/06/16 Carla Almonte RN Specialty Hydrogeologist Oncology 07/06/17 eMenu Garay MD [address] [place] [address] Physician Radiation Oncology 04/12/19 Mayco Galeano MD [address] [place] [address] Cardiology 08/18/22 [facility] Cashier Relationship Specialty Start Date End Date Williams Farrell DO 53 [facility] [place] [address] PCP - General Internal Medicine 04/26/23 Meenu Garay MD [address] [place] [address] Physician Radiation Oncology 09/06/16 Carla Almonte RN Specialty Hydrogeologist Oncology 07/06/17 Meenu Garay MD [address] [place] [address] Physician Radiation Oncology 04/12/19 Mayco Galeano MD [address] [place] [address] Cardiology 08/18/22 [facility] Cashier Relationship Specialty Start Date End Date Williams Farrell DO 53 [facility] [place] [address] PCP - General Internal Medicine 04/26/23 Meenu Garay MD [address] [place] [address] Physician Radiation Oncology 09/06/16 Carla Almonte RN Specialty Hydrogeologist Oncology 07/06/17 Meenu Garay MD [address] [place] [address] Physician Radiation Oncology 04/12/19 Mayco Galeano MD [address] [place] [address] Cardiology 08/18/22 [facility] D[facility] Cashier Relationship Specialty Start Date End Date Williams Farrell DO 53 [facility] Physician [facility] [place] [address] PCP - General Internal Medicine 04/26/23 Meenu Garay MD [address] [address] Physician Radiation Oncology 09/06/16 Carla Almonte RN Specialty Hydrogeologist Oncology 07/06/17 Meenu Garay MD [address] [place] [address] Physician Radiation Oncology 04/12/19 Mayco Galeano MD [address] [place] [address] Cardiology 08/18/22 [facility] Cashier Relationship Specialty Start Date End Date Williams Farrell DO 53 [facility] [place] [address] PCP - General Internal Medicine 04/26/23 Meenu Garay MD [address] [place] [address] Physician Radiation Oncology 09/06/16 Carla Almonte RN Specialty Hydrogeologist Oncology 07/06/17 Meenu Garay MD [address] [place] [address] Physician Radiation Oncology 04/12/19 Mayco Galeano MD [address] [place] [address] Cardiology 08/18/22 [facility] Cashier Relationship Specialty Start Date End Date Williams Farrell DO 53 [facility] Physician [facility] [place] [address] PCP - General Internal Medicine 04/26/23 Meenu Garay MD [address] [place] [address] Physician Radiation Oncology 09/06/16 Carla Almonte RN Specialty Hydrogeologist Oncology 07/06/17 Meenu Garay MD [address] [place] [address] Physician Radiation Oncology 04/12/19 Mayco Galeano MD [address] [place] [address], [place] [address] Cardiology 08/18/22 [facility] Cashier Relationship Specialty Start Date End Date Williams Farrell DO 53 [facility] [place] [address] PCP - General Internal Medicine 04/26/23 Meenu Garay MD [address] [address] Physician Radiation Oncology 09/06/16 Carla Almonte RN Specialty Hydrogeologist Oncology 07/06/17 Meenu Garay MD [address] [place] [address] Physician Radiation Oncology 04/12/19 Mayco Galeano MD [address] [place] [address], [place] [address] Cardiology 08/18/22 [facility] Cashier Relationship Specialty Start Date End Date Williams Farrell DO 53 [facility] [place] [address] PCP - General Internal Medicine 04/26/23 Meenu Garay MD [address] [place] [address] Physician Radiation Oncology 09/06/16 Carla Almonte RN Specialty Hydrogeologist Oncology 07/06/17 Meenu Garay MD [address] [place] [address] Physician Radiation Oncology 04/12/19 Mayco Galeano MD [address] [address] Cardiology 08/18/22 [facility] Cashier Relationship Specialty Start Date End Date Williams Farrell DO 53 [facility] [place] [address] PCP - General Internal Medicine 04/26/23 Meenu Garay MD [address] [place] [address] Physician Radiation Oncology 09/06/16 Carla Almonte RN Specialty Hydrogeologist Oncology 07/06/17 Meenu Garay MD [address] [place] [address] Physician Radiation Oncology 04/12/19 Mayco Galeano MD [address] [place] [address] Cardiology 08/18/22 [facility] Cashier Relationship Specialty Start Date End Date Williams Farrell DO 53 [facility] [place] [address] PCP - General Internal Medicine 04/26/23 Meenu Garay MD [address] [place] [address] Physician Radiation Oncology 09/06/16 Carla Almonte, RN Specialty Hydrogeologist Oncology 07/06/17 Meenu Garay MD [address] [place] [address] Physician Radiation Oncology 04/12/19 Mayco Galeano MD [address] [place] [address] Cardiology 08/18/22 [facility] Cashier Relationship Specialty Start Date End Date Williams Farrell DO 53 [facility] [place] [address] PCP - General Internal Medicine 04/26/23 Meenu Garay MD [address] [place] [address] Physician Radiation Oncology 09/06/16 Carla Almonte RN Specialty Hydrogeologist Oncology 07/06/17 Meenu Garay MD [address] [place] [address] Physician Radiation Oncology 04/12/19 Mayco Galeano MD [address] [place] [address] Cardiology 08/18/22 [facility] Cashier Relationship Specialty Start Date End Date Williams Farrell DO 53 [facility] [place] [address] PCP - General Internal Medicine 04/26/23 Meenu Garay MD [address] [place] [address] Physician Radiation Oncology 09/06/16 Carla Almonte RN Specialty Hydrogeologist Oncology 07/06/17 Meenu Garay MD [address] [place] [address] Physician Radiation Oncology 04/12/19 Mayco Galeano MD [address] [facility] [place] [address] Cardiology 08/18/22 [facility] Cashier Relationship Specialty Start Date End Date Williams Farrell DO 53 [facility] [place] [address] PCP - General Internal Medicine 04/26/23 Meenu Garay MD [address] [place] [address] Physician Radiation Oncology 09/06/16 Carla Almonte RN Specialty Hydrogeologist Oncology 07/06/17 Meenu Garay MD [address] [place] [address] Physician Radiation Oncology 04/12/19 Mayco Galeano MD [address] [place] [address] Cardiology 08/18/22 [facility] Cashier Relationship Specialty Start Date End Date Williams Farrell DO 53 [facility] Physician [facility] [place] [address] PCP - General Internal Medicine 04/26/23 Meenu Garay MD [address] [place] [address] Physician Radiation Oncology 09/06/16 Carla Almonte RN Specialty Hydrogeologist Oncology 07/06/17 Meenu Garay MD [address] [place] [address] Physician Radiation Oncology 04/12/19 Mayco Galeano MD [address] [place] [address] Cardiology 08/18/22 [facility] Cashier Relationship Specialty Start Date End Date Williams Farrell DO 53 [facility] [place] [address] PCP - General Internal Medicine 04/26/23 Meenu Garay MD [address] [place] [address] Physician Radiation Oncology 09/06/16 Carla Almonte RN Specialty Hydrogeologist Oncology 07/06/17 Meenu Garay MD [address] [place] [address] Physician Radiation Oncology 04/12/19 Mayco Galeano MD [address] [place] [address] Cardiology 08/18/22 [facility] Cashier Relationship Specialty Start Date End Date Williams Farrell DO 53 [facility] [place] [address] PCP - General Internal Medicine 04/26/23 Meenu Garay MD [address] [place] [address] Physician Radiation Oncology 09/06/16 Carla Almonte RN Specialty Hydrogeologist Oncology 07/06/17 Meenu Garay MD [address] [place] [address] Physician Radiation Oncology 04/12/19 Mayco Galeano MD [address] [place] [address] Cardiology 08/18/22 [facility] Cashier Relationship Specialty Start Date End Date Williams Farrell DO 53 [facility] [place] [address] PCP - General Internal Medicine 04/26/23 Meenu Garay MD [address] [place] [address] Physician Radiation Oncology 09/06/16 Carla Almonte RN Specialty Hydrogeologist Oncology 07/06/17 Meenu Garay MD [address] [place] [address] Physician Radiation Oncology 04/12/19 Mayco Galeano MD [address] [place] [address] Cardiology 08/18/22 [facility] Cashier Relationship Specialty Start Date End Date Williams Farrell DO 53 [facility] [place] [address] PCP - General Internal Medicine 04/26/23 Meenu Garay MD [address] [place] [address] Physician Radiation Oncology 09/06/16 Carla Almonte RN Specialty Hydrogeologist Oncology 07/06/17 Meenu Garay MD [address] [place] [address] Physician Radiation Oncology 04/12/19 Mayco Galeano MD [address] [place] [address] Cardiology 08/18/22 [facility] Cashier Relationship Specialty Start Date End Date Williams Farrell DO 53 [facility] [place] [address] PCP - General Internal Medicine 04/26/23 Meenu Garay MD [address] [place] [address] Physician Radiation Oncology 09/06/16 Carla Almonte RN Specialty Hydrogeologist Oncology 07/06/17 Meenu Garay MD [address] [place] [address] Physician Radiation Oncology 04/12/19 Mayco Galeano MD [address] [place] [address] Cardiology 08/18/22 Rip Rivers DO [address] [place] [address] Hematology/Oncology 10/14/23 [facility] Cashier Relationship Specialty Start Date End Date Williams Farrell DO 53 [facility] [place] [address] PCP - General Internal Medicine 04/26/23 Meenu Garay MD [address] [place] [address] Physician Radiation Oncology 09/06/16 Carla Almonte RN Specialty Hydrogeologist Oncology 07/06/17 Meenu Garay MD [address] [place] [address] Physician Radiation Oncology 04/12/19 Mayco Galeano MD [address] [place] [address] Cardiology 08/18/22 Rip Rivers DO [address] [place] [address] Hematology/Oncology 10/14/23 [facility] Cashier Relationship Specialty Start Date End Date Williams Farrell DO 53 [facility] [place] [address] PCP - General Internal Medicine 04/26/23 Meenu Garay MD [address] [place] [address] Physician Radiation Oncology 09/06/16 Carla Almonte RN Specialty Hydrogeologist Oncology 07/06/17 Meenu Garay MD [address] [place] [address] Physician Radiation Oncology 04/12/19 Mayco Galeano MD [address] [place] [address] Cardiology 08/18/22 Rip Rivers DO [address] [place] [address] Hematology/Oncology 10/14/23 [facility] Cashier Relationship Specialty Start Date End Date Williams Farrell DO 53 [facility] Physician [place], [place] [id number] PCP - General Internal Medicine 04/26/23 Meenu Garay MD [address] [place] [address] Physician Radiation Oncology 09/06/16 Carla Almonte, RN Specialty Hydrogeologist Oncology 07/06/17 Meenu Garay MD [address] [place] [address] Physician Radiation Oncology 04/12/19 Mayco Galeano MD [address] [place] [address] Cardiology 08/18/22 Rip Rivers DO [address] [place] [address] Hematology/Oncology 10/14/23 [facility] Cashier Relationship Specialty Start Date End Date Williams Farrell DO 53 [facility] Physician [facility] [place] [address] PCP - General Internal Medicine 04/26/23 Meenu Garay MD [address] [place] [place] [address] Physician Radiation Oncology 09/06/16 Carla Almonte RN Specialty Hydrogeologist Oncology 07/06/17 Meenu Garay MD [address] [place] [address] Physician Radiation Oncology 04/12/19 Mayco Galeano MD [address] [place] [address] Cardiology 08/18/22 Rip Rivers DO [address] [place] [place] [address] Hematology/Oncology 10/14/23 [facility] Cashier Relationship Specialty Start Date End Date Williams Farrell DO 53 [facility] Physician [facility] [place] [address] PCP - General Internal Medicine 04/26/23 Meenu Garay MD [address] [place] [address] Physician Radiation Oncology 09/06/16 Carla Almonte RN Specialty Hydrogeologist Oncology 07/06/17 Meenu Garay MD [address] [place] [address] Physician Radiation Oncology 04/12/19 Mayco Galeano MD [address] [place] [address] Cardiology 08/18/22 Rip Rivers DO [address] [place] [address] Hematology/Oncology 10/14/23 [facility] Cashier Relationship Specialty Start Date End Date Williams Farrell DO 53 [facility] [place] [address] PCP - General Internal Medicine 04/26/23 Meenu Garay MD [address] [place] [address] Physician Radiation Oncology 09/06/16 Carla Almonte RN Specialty Hydrogeologist Oncology 07/06/17 Meenu Garay MD [address] [place] [address] Physician Radiation Oncology 04/12/19 Mayco Galeano MD [address] [place] [address] Cardiology 08/18/22 Rip Rivers DO [address] [place] [address] Hematology/Oncology 10/14/23 [facility] Cashier Relationship Specialty Start Date End Date Williams Farrell DO 53 [facility] [place] [address] PCP - General Internal Medicine 04/26/23 Meenu Garay MD [address] [place] [address] Physician Radiation Oncology 09/06/16 Carla Almonte, RN Specialty Hydrogeologist Oncology 07/06/17 Meenu Garay MD [address] [place] [address] Physician Radiation Oncology 04/12/19 Mayco Galeano MD [address] [facility] [place] [address] Cardiology 08/18/22 Rip Rivers DO [address] [place] [address] Hematology/Oncology 10/14/23 [facility] Cashier Relationship Specialty Start Date End Date Williams Farrell DO 53 [facility] [place] [address] PCP - General Internal Medicine 04/26/23 Meenu Garay MD [address] [place] [address] Physician Radiation Oncology 09/06/16 Carla Almonte RN Specialty Hydrogeologist Oncology 07/06/17 Meenu Garay MD [address] [place] [address] Physician Radiation Oncology 04/12/19 Mayco Glaeano MD [address] [facility] [place] [place] [address] Cardiology 08/18/22 Rip Rivers DO [address] [place] [place] [address] Hematology/Oncology 10/14/23 [facility] Cashier Relationship Specialty Start Date End Date Williams Farrell DO 53 [facility] [place] [address] PCP - General Internal Medicine 04/26/23 Meenu Garay MD [address] [place] [address] Physician Radiation Oncology 09/06/16 Carla Almonte RN Specialty Hydrogeologist Oncology 07/06/17 Meenu Garay MD [address] [place] [address] Physician Radiation Oncology 04/12/19 Mayco Galeano MD [address] [address] Cardiology 08/18/22 Rip Rivers DO [address] [place] [address] Hematology/Oncology 10/14/23 [facility] Cashier Relationship Specialty Start Date End Date Williams Farrell DO 53 [facility] [place] [address] PCP - General Internal Medicine 06/16/23 [facility] Cashier Relationship Specialty Start Date End Date Williams Farrell DO 53 [facility] [place] [address] PCP - General Internal Medicine 04/26/23 Meenu Garay MD [address] [place] [address] Physician Radiation Oncology 09/06/16 Carla Almonte RN Specialty Hydrogeologist Oncology 07/06/17 Meenu Garay MD [address] [place] [address] Physician Radiation Oncology 04/12/19 Mayco Galeano MD [address] [place] [address] Cardiology 08/18/22 Rip Rivers DO [address] [place] [address] Hematology/Oncology 10/14/23 [facility] Cashier Relationship Specialty Start Date End Date Williams Farrell DO 53 [facility] [place] [address] PCP - General Internal Medicine 04/26/23 Meenu Garay MD [address] [place] [address] Physician Radiation Oncology 09/06/16 Carla Almonte RN Specialty Hydrogeologist Oncology 07/06/17 Meenu Garay MD [address] [place] [address] Physician Radiation Oncology 04/12/19 Mayco Galeano MD [address] [place] [address] Cardiology 08/18/22 Rip Rivers DO [address] [place] [address] Hematology/Oncology 10/14/23 [facility] Cashier Relationship Specialty Start Date End Date Williams Farrell DO 53 [facility] [place] [address] PCP - General Internal Medicine 04/26/23 Meenu Garay MD [address] [place] [address] Physician Radiation Oncology 09/06/16 Carla Almonte, PRINCE Specialty Hydrogeologist Oncology 07/06/17 Meenu Garay MD [address] [place] [address] Physician Radiation Oncology 04/12/19 Mayco Galeano MD [address] [place] [address] Cardiology 08/18/22 Rip Rivers DO [address] [place] [address] Hematology/Oncology 10/14/23 [facility] Cashier Relationship Specialty Start Date End Date Williams Farrell DO 53 [facility] [place] [address] PCP - General Internal Medicine 04/26/23 Meenu Garay MD [address] [place] [address] Physician Radiation Oncology 09/06/16 Carla Almonte RN Specialty Hydrogeologist Oncology 07/06/17 Meenu Garay MD [address] [place] [address] Physician Radiation Oncology 04/12/19 Mayco Galeano MD [address] [place] [address] Cardiology 08/18/22 Rip Rivers DO [address] [place] [address] Hematology/Oncology 10/14/23 [facility] Cashier Relationship Specialty Start Date End Date Williams Farrell DO 53 [facility] Physician [place], [place] [id number] PCP - General Internal Medicine 04/26/23 Meenu Garay MD [address] [place] [address] Physician Radiation Oncology 09/06/16 Carla Almonte RN Specialty Hydrogeologist Oncology 07/06/17 Meenu Garay MD [address] [place] [address] Physician Radiation Oncology 04/12/19 Mayco Galeano MD [address] [place] [address] Cardiology 08/18/22 Rip Rivers DO [address] [place] [address] Hematology/Oncology 10/14/23 [facility] Cashier Relationship Specialty Start Date End Date Williams Farrell DO 53 [facility] [place] [address] PCP - General Internal Medicine 04/26/23 Meenu Garay MD [address] [place] [place] [address] Physician Radiation Oncology 09/06/16 Carla lAmonte RN Specialty Hydrogeologist Oncology 07/06/17 Meenu Garay MD [address] [place] [address] Physician Radiation Oncology 04/12/19 Mayco Galeano MD [address] [place] [address] Cardiology 08/18/22 Rip Rivers DO [address] [place] [place] [address] Hematology/Oncology 10/14/23 [facility] Cashier Relationship Specialty Start Date End Date Williams Farrell DO 53 [facility] [place] [address] PCP - General Internal Medicine 04/26/23 Meenu Garay MD [address] [place] [address] Physician Radiation Oncology 09/06/16 Carla Almonte RN Specialty Hydrogeologist Oncology 07/06/17 Meenu Garay MD [address] [place] [address] Physician Radiation Oncology 04/12/19 Mayco Galeano MD [address] [place] [address] Cardiology 08/18/22 Rip Rivers DO [address] [place] [address] Hematology/Oncology 10/14/23 [facility] Cashier Relationship Specialty Start Date End Date Williams Farrell DO 53 [facility] Physician [place], [place] [address] PCP - General Internal Medicine 04/26/23 Meenu Garay MD [address] [place] [address] Physician Radiation Oncology 09/06/16 Carla Almonte, PRINCE Specialty Hydrogeologist Oncology 07/06/17 Meenu Garay MD [address] [place] [address] Physician Radiation Oncology 04/12/19 Mayco Galeano MD [address] [place] [address] Cardiology 08/18/22 Rip Rivers DO [address] [place] [address] Hematology/Oncology 10/14/23 [facility] Cashier Relationship Specialty Start Date End Date Williams Farrell DO 53 [facility] [place] [address] PCP - General Internal Medicine 04/26/23 Meenu Garay MD [address] [place] [address] Physician Radiation Oncology 09/06/16 Carla Almonte RN Specialty Hydrogeologist Oncology 07/06/17 Meenu Garay MD [address] [place] [address] Physician Radiation Oncology 04/12/19 Mayco Galeano MD [address] [place] [address] Cardiology 08/18/22 Rip Rivers DO [address] [place] [address] Hematology/Oncology 10/14/23 [facility] Cashier Relationship Specialty Start Date End Date Williams Farrell DO 53 [facility] [place] [address] PCP - General Internal Medicine 04/26/23 Meenu Garay MD [address] [place] [address] Physician Radiation Oncology 09/06/16 Carla Almonte RN Specialty Hydrogeologist Oncology 07/06/17 Meenu Garay MD [address] [place] [address] Physician Radiation Oncology 04/12/19 Mayco Galeano MD [address] [place] [address] Cardiology 08/18/22 Rip Rivers DO [address] [place] [address] Hematology/Oncology 10/14/23 [facility] Cashier Relationship Specialty Start Date End Date Williams Farrell DO 53 [facility] Physician [facility] [place] [address] PCP - General Internal Medicine 04/26/23 Meenu Garay MD [address] [place] [address] Physician Radiation Oncology 09/06/16 Carla Almonte, PRINCE Specialty Hydrogeologist Oncology 07/06/17 Meenu Garay MD [address] [place] [address] Physician Radiation Oncology 04/12/19 Mayco Galeano MD [address] [place] [address] Cardiology 08/18/22 Rip Rivers DO [address] [place] [address] Hematology/Oncology 10/14/23 [facility] Cashier Relationship Specialty Start Date End Date Williams Farrell DO 53 [facility] Physician [facility] [place] [address] PCP - General Internal Medicine 04/26/23 Meenu Garay MD [address] [place] [address] Physician Radiation Oncology 09/06/16 Carla Almonte RN Specialty Hydrogeologist Oncology 07/06/17 Meenu Garay MD [address] [place] [address] Physician Radiation Oncology 04/12/19 Mayco Galeano MD [address] [place] [address] Cardiology 08/18/22 Rip Rivers DO [address] [place] [address] Hematology/Oncology 10/14/23 [facility] Cashier Relationship Specialty Start Date End Date Williams Farrell DO 53 [facility] [place] [address] PCP - General Internal Medicine 04/26/23 Meenu Garay MD [address] [place] [address] Physician Radiation Oncology 09/06/16 Carla Almonte RN Specialty Hydrogeologist Oncology 07/06/17 Meenu Garay MD [address] [place] [address] Physician Radiation Oncology 04/12/19 Mayco Galeano MD [address] [place] [address] Cardiology 08/18/22 Rip Rivers DO [address] [place] [address] Hematology/Oncology 10/14/23 [facility] Cashier Relationship Specialty Start Date End Date Williams Farrell DO 53 [facility] [place] [address] PCP - General Internal Medicine 04/26/23 Meenu Garay MD [address] [place] [address] Physician Radiation Oncology 09/06/16 Carla Almonte RN Specialty Hydrogeologist Oncology 07/06/17 Meenu Garay MD [address] [place] [address] Physician Radiation Oncology 04/12/19 Mayco Galeano MD [address] [place] [address] Cardiology 08/18/22 Rip Rivers DO [address] [place] [address] Hematology/Oncology 10/14/23 [facility] Cashier Relationship Specialty Start Date End Date Williams Farrell DO 53 [facility] [place] [address] PCP - General Internal Medicine 04/26/23 Meenu Garay MD [address] [place] [address] Physician Radiation Oncology 09/06/16 Carla Almonte RN Specialty Hydrogeologist Oncology 07/06/17 Meenu Garay MD [address] [place] [address] Physician Radiation Oncology 04/12/19 Mayco Galeano MD [address] [place] [address] Cardiology 08/18/22 Rip Rivers DO [address] [place] [address] Hematology/Oncology 10/14/23 [facility] Cashier Relationship Specialty Start Date End Date Williams Farrell DO 53 [facility] Physician [place], [place] [id number] PCP - General Internal Medicine 04/26/23 Meenu Garay MD [address] [place] [address] Physician Radiation Oncology 09/06/16 Carla Almonte RN Specialty Hydrogeologist Oncology 07/06/17 Meenu Garay MD [address] [place] [address] Physician Radiation Oncology 04/12/19 Mayco Galeano MD [address] [place] [address] Cardiology 08/18/22 Rip Rivers DO [address] [place] [address] Hematology/Oncology 10/14/23 [facility] Cashier Relationship Specialty Start Date End Date Williams Farrell DO 53 [facility] [place] [address] PCP - General Internal Medicine 04/26/23 Meenu Garay MD [address] [place] [address] Physician Radiation Oncology 09/06/16 Carla Almonte RN Specialty Hydrogeologist Oncology 07/06/17 Meenu Garay MD [address] [place] [address] Physician Radiation Oncology 04/12/19 Mayco Galeano MD [address] [place] [address] Cardiology 08/18/22 Rip Rivers DO [address] [place] [address] Hematology/Oncology 10/14/23 [facility] Cashier Relationship Specialty Start Date End Date Williams Farrell DO 53 [facility] [place] [address] PCP - General Internal Medicine 04/26/23 Meenu Garay MD [address] [place] [address] Physician Radiation Oncology 09/06/16 Carla Almonte RN Specialty Hydrogeologist Oncology 07/06/17 Meenu Garay MD [address] [place] [place] [address] Physician Radiation Oncology 04/12/19 Mayco Galeano MD [address] [place] [address] Cardiology 08/18/22 Rip Rivers DO [address] [place] [address] Hematology/Oncology 10/14/23 [facility] Cashier Relationship Specialty Start Date End Date Williams Farrell DO 53 [facility] [place] [address] PCP - General Internal Medicine 04/26/23 Meenu Garay MD [address] [place] [address] Physician Radiation Oncology 09/06/16 Carla Almonte RN Specialty Hydrogeologist Oncology 07/06/17 Meenu Garay MD [address] [place] [address] Physician Radiation Oncology 04/12/19 Mayco Galeano MD [address] [place] [address] Cardiology 08/18/22 Rip Rivers DO [address] [place] [address] Hematology/Oncology 10/14/23 [facility] Cashier Relationship Specialty Start Date End Date Williams Farrell DO 53 [facility] [place] [address] PCP - General Internal Medicine 04/26/23 Meenu Garay MD [address] [place] [address] Physician Radiation Oncology 09/06/16 Carla Almonte, RN Specialty Hydrogeologist Oncology 07/06/17 Meenu Garay MD [address] [place] [address] Physician Radiation Oncology 04/12/19 Mayco Galeano MD [address] [place] [address] Cardiology 08/18/22 Rip Rivers DO [address] [place] [address] Hematology/Oncology 10/14/23 [facility] Cashier Relationship Specialty Start Date End Date Williams Farrell DO 53 [facility] [place] [address] PCP - General Internal Medicine 04/26/23 Meenu Garay MD [address] [place] [address] Physician Radiation Oncology 09/06/16 Carla Almonte RN Specialty Hydrogeologist Oncology 07/06/17 Meenu Garay MD [address] [place] [address] Physician Radiation Oncology 04/12/19 Mayco Galeano MD [address] [place] [address] Cardiology 08/18/22 Rip Rivers DO [address] [place] [address] Hematology/Oncology 10/14/23 [facility] Cashier Relationship Specialty Start Date End Date Williams Farrell DO 53 [facility] [place] [address] PCP - General Internal Medicine 04/26/23 Meenu Garay MD [address] [place] [address] Physician Radiation Oncology 09/06/16 Carla Almonte RN Specialty Hydrogeologist Oncology 07/06/17 Meenu Garay MD [address] [place] [address] Physician Radiation Oncology 04/12/19 Mayco Galeano MD [address] [place] [address] Cardiology 08/18/22 Rip Rivers DO [address] [place] [address] Hematology/Oncology 10/14/23 [facility] Cashier Relationship Specialty Start Date End Date Williams Farrell DO 53 [facility] [place] [address] PCP - General Internal Medicine 04/26/23 Meenu Garay MD [address] [place] [address] Physician Radiation Oncology 09/06/16 Carla Almonte RN Specialty Hydrogeologist Oncology 07/06/17 Meenu Garay MD [address] [place] [address] Physician Radiation Oncology 04/12/19 Mayco Galeano MD [address] [place] [address] Cardiology 08/18/22 Rip Rivers DO [address] [place] [address] Hematology/Oncology 10/14/23 [facility] Cashier Relationship Specialty Start Date End Date Williams Farrell DO 53 [facility] [place] [address] PCP - General Internal Medicine 04/26/23 Meenu Garay MD [address] [place] [address] Physician Radiation Oncology 09/06/16 Carla Almonte RN Specialty Hydrogeologist Oncology 07/06/17 Meenu Garay MD [address] [place] [address] Physician Radiation Oncology 04/12/19 Mayco Galeano MD [address] [place] [address] Cardiology 08/18/22 Rip Rivers DO [address] [place] [address] Hematology/Oncology 10/14/23 [facility] Cashier Relationship Specialty Start Date End Date Williams Farrell DO 53 [facility] Physician [place], [place] [id number] PCP - General Internal Medicine 04/26/23 Meenu Garay MD [address] [place], [place] [address] [phone] Physician Radiation Oncology 09/06/16 Carla Almonte RN Specialty Hydrogeologist Oncology 07/06/17 Meenu Garay MD [address] [place] [address] Physician Radiation Oncology 04/12/19 Mayco Galeano MD [address] [place] [address] Cardiology 08/18/22 Rip Rivers DO [address] [place] [address] Hematology/Oncology 10/14/23 [facility] Cashier Relationship Specialty Start Date End Date Isac Billingsley MD [address] [place] [address] PCP - General Family Medicine 07/04/24 Meenu Garay MD [address] [place] [address] Physician Radiation Oncology 09/06/16 Carla Almonte, RN Specialty Hydrogeologist Oncology 07/06/17 Meenu Garay MD [address] [place] [address] Physician Radiation Oncology 04/12/19 Mayco Galeano MD [address] [place] [address] Cardiology 08/18/22 Rip Rivers DO [address] [place] [address] Hematology/Oncology 10/14/23 Hotel And Dining Room Cashier Relationship Specialty Start Date End Date Isac Billingsley MD [address] [place] [address] PCP - General Family Medicine 07/04/24 Meenu Garay MD [address] [place] [address] Physician Radiation Oncology 09/06/16 Carla Almonte RN Specialty Hydrogeologist Oncology 07/06/17 Meenu Garay MD [address] [place] [address] Physician Radiation Oncology 04/12/19 Mayco Galeano MD [address] [place] [address] Cardiology 08/18/22 Rip Rivers DO [address] [place] [address] Hematology/Oncology 10/14/23 Hotel And Dining Room Cashier Relationship Specialty Start Date End Date Isac Billingsley MD [address] [place] [address] PCP - General Family Medicine 07/04/24 Meenu Garay MD [address] [place] [address] Physician Radiation Oncology 09/06/16 Carla Almonte RN Specialty Hydrogeologist Oncology 07/06/17 Meenu Garay MD [address] [place] [address] Physician Radiation Oncology 04/12/19 Mayco Galeano MD [address] [facility] [place] [place] [address] Cardiology 08/18/22 Rip Rivers DO [address] [place] [address] Hematology/Oncology 10/14/23 Hotel And Dining Room Cashier Relationship Specialty Start Date End Date Isac Billingsley MD [address] [place] [address] PCP - General Family Medicine 07/04/24 Meenu Garay MD [address] [place] [address] Physician Radiation Oncology 09/06/16 Carla Almonte RN Specialty Hydrogeologist Oncology 07/06/17 Meenu Garay MD [address] [place] [address] Physician Radiation Oncology 04/12/19 Mayco Galeano MD [address] [place] [address] Cardiology 08/18/22 Rip Rivers DO [address] [place] [id number] Hematology/Oncology 10/14/23 Hotel And Dining Room Cashier Relationship Specialty Start Date End Date Williams Farrell DO [address] [facility] Physician [place], [place] [id number] PCP - General Internal Medicine 04/26/23 07/03/24 Isac Billingsley MD [address] [place] [address] PCP - General Family Medicine 07/04/24 Meenu Garay MD [address] [place] [address] Physician Radiation Oncology 09/06/16 Carla Almonte, PRINCE Specialty Hydrogeologist Oncology 07/06/17 Meenu Garay MD [address] [place], [place] [id number] Physician Radiation Oncology 04/12/19 Mayco Galeano MD [address] [facility] [address] [place], [place] [address] Cardiology 08/18/22 Rip Rivers DO [address] [place] [address] Hematology/Oncology 10/14/23 Hotel And Dining Room Cashier Relationship Specialty Start Date End Date Isac Billingsley MD [address] [place] [address] PCP - General Family Medicine 07/04/24 Meenu Garay MD [address] [place] [address] Physician Radiation Oncology 09/06/16 Carla Almonte RN Specialty Hydrogeologist Oncology 07/06/17 Meenu Garay MD [address] [place] [address] Physician Radiation Oncology 04/12/19 Mayco Galeano MD [address] [place] [place] [address] Cardiology 08/18/22 Rip Rivers DO [address] [place] [address] Hematology/Oncology 10/14/23 Hotel And Dining Room Cashier Relationship Specialty Start Date End Date Isac Billingsley MD [address] [place] [address] PCP - General Family Medicine 07/04/24 Meenu Garay MD [address] [place] [address] Physician Radiation Oncology 09/06/16 Carla Almonte RN Specialty Hydrogeologist Oncology 07/06/17 Meenu Garay MD [address] [place] [address] Physician Radiation Oncology 04/12/19 Mayco Galeano MD [address] [place] [address] Cardiology 08/18/22 Rip Rivers DO [address] [place] [address] Hematology/Oncology 10/14/23 Hotel And Dining Room Cashier Relationship Specialty Start Date End Date Isac Billingsley MD [address] [place] [address] PCP - General Family Medicine 07/04/24 Meenu Garay MD [address] [place] [address] Physician Radiation Oncology 09/06/16 Crala Almonte RN Specialty Hydrogeologist Oncology 07/06/17 Meenu Garay MD [address] [place] [address] Physician Radiation Oncology 04/12/19 Mayco Galeano MD [address] [place] [place] [address] Cardiology 08/18/22 Rip Rivers DO [address] [place] [address] Hematology/Oncology 10/14/23 Hotel And Dining Room Cashier Relationship Specialty Start Date End Date Isac Billingsley MD [address] [place] [address] PCP - General Family Medicine 07/04/24 Meenu Garay MD [address] [place] [address] Physician Radiation Oncology 09/06/16 Carla Almonte RN Specialty Hydrogeologist Oncology 07/06/17 Meenu Garay MD [address] [place] [address] Physician Radiation Oncology 04/12/19 Mayco Galeano MD [address] [place] [address] Cardiology 08/18/22 Rip Rivers DO [address] [place] [address] Hematology/Oncology 10/14/23 Hotel And Dining Room Cashier Relationship Specialty Start Date End Date Isac Billingsley MD [address] [place] [address] PCP - General Family Medicine 07/04/24 Meenu Garay MD [address] [place] [address] Physician Radiation Oncology 09/06/16 Crala Almonte RN Specialty Hydrogeologist Oncology 07/06/17 Meenu Garay MD [address] [place] [address] Physician Radiation Oncology 04/12/19 Mayco Galeano MD [address] [place] [address] Cardiology 08/18/22 Rip Rivers DO [address] [place] [address] Hematology/Oncology 10/14/23 Hotel And Dining Room Cashier Relationship Specialty Start Date End Date Isac Billingsley MD [address] [place] [address] PCP - General Family Medicine 07/04/24 Meenu Garay MD [address] [place], [place] [address] [phone] Physician Radiation Oncology 09/06/16 Carla Almonte RN Specialty Hydrogeologist Oncology 07/06/17 Meenu Garay MD [address] [place] [address] Physician Radiation Oncology 04/12/19 Mayco Galeano MD [address] [address] Cardiology 08/18/22 Rip Rivers DO [address] [place] [address] Hematology/Oncology 10/14/23 Hotel And Dining Room Cashier Relationship Specialty Start Date End Date Isac Billingsley MD [address] [place] [address] PCP - General Family Medicine 07/04/24 Meenu Garay MD [address] [place] [address] Physician Radiation Oncology 09/06/16 Carla Almonte RN Specialty Hydrogeologist Oncology 07/06/17 Meenu Garay MD [address] [place] [address] Physician Radiation Oncology 04/12/19 Mayco Galeano MD [address] [place] [address] Cardiology 08/18/22 Rip Rivers DO [address] [place] [address] Hematology/Oncology 10/14/23 Hotel And Dining Room Cashier Relationship Specialty Start Date End Date Isac Billingsley MD [address] [place] [address] PCP - General Family Medicine 07/04/24 Meenu Garay MD [address] [place] [address] Physician Radiation Oncology 09/06/16 Carla Almonte RN Specialty Hydrogeologist Oncology 07/06/17 Meenu Garay MD [address] [place] [address] Physician Radiation Oncology 04/12/19 Mayco Galeano MD [address] [place] [address] Cardiology 08/18/22 Rip Rivers DO [address] [place] [address] Hematology/Oncology 10/14/23 Hotel And Dining Room Cashier Relationship Specialty Start Date End Date Isac Billingsley MD [address] [place] [address] PCP - General Family Medicine 07/04/24 Meenu Garay MD [address] [place] [address] Physician Radiation Oncology 09/06/16 Carla Almonte RN Specialty Hydrogeologist Oncology 07/06/17 Meenu Garay MD [address] [place] [address] Physician Radiation Oncology 04/12/19 Mayco Galeano MD [address] [place] [address] Cardiology 08/18/22 Rip Rivers DO [address] [place] [address] Hematology/Oncology 10/14/23 Hotel And Dining Room Cashier Relationship Specialty Start Date End Date Isac Billingsley MD [address] [place] [address] PCP - General Family Medicine 07/04/24 Meenu Garay MD [address] [place] [address] Physician Radiation Oncology 09/06/16 Carla Almonte RN Specialty Hydrogeologist Oncology 07/06/17 Meenu Garay MD [address] [place] [address] Physician Radiation Oncology 04/12/19 Mayco Galeano MD [address] [place] [address] Cardiology 08/18/22 Rip Rivers DO [address] [place] [address] Hematology/Oncology 10/14/23 Hotel And Dining Room Cashier Relationship Specialty Start Date End Date Isac Billingsley MD [address] [place] [phone] PCP - General Family Medicine 07/04/24 Meenu Garay MD [address] [place] [address] Physician Radiation Oncology 09/06/16 Carla Almonte RN Specialty Hydrogeologist Oncology 07/06/17 Meenu Garay MD [address] [place] [address] Physician Radiation Oncology 04/12/19 Mayco Galeano MD [address] [place] [place] [address] Cardiology 08/18/22 Rip Rivers DO [address] [place] [address] Hematology/Oncology 10/14/23 Hotel And Dining Room Cashier Relationship Specialty Start Date End Date Isac Billingsley MD [address] [facility] [address] PCP - General Family Medicine 07/04/24 Meenu Garay MD [address] [place] [address] Physician Radiation Oncology 09/06/16 Carla Almonte RN Specialty Hydrogeologist Oncology 07/06/17 Meenu Garay MD [address] [place] [address] Physician Radiation Oncology 04/12/19 Mayco Galeano MD [address] [place] [address] Cardiology 08/18/22 Rip Rivers DO [address] [place] [address] Hematology/Oncology 10/14/23 Hotel And Dining Room Cashier Relationship Specialty Start Date End Date Isac Billingsley MD [address] [place] [address] PCP - General Family Medicine 07/04/24 Meenu Garay MD [address] [place] [address] Physician Radiation Oncology 09/06/16 Carla Almonte RN Specialty Hydrogeologist Oncology 07/06/17 Meenu Garay MD [address] [place] [address] Physician Radiation Oncology 04/12/19 Mayco Galeano MD [address] [place] [address] Cardiology 08/18/22 Rip Rivers DO [address] [place] [address] Hematology/Oncology 10/14/23 Hotel And Dining Room Cashier Relationship Specialty Start Date End Date Isac Billingsley MD [address] [place] [phone] PCP - General Family Medicine 07/04/24 Meenu Garay MD [address] [place] [address] Physician Radiation Oncology 09/06/16 Carla Almonte RN Specialty Hydrogeologist Oncology 07/06/17 Meenu Garay MD [address] [place] [address] Physician Radiation Oncology 04/12/19 Mayco Galeano MD [address] [place] [address] Cardiology 08/18/22 Rip Rivers DO [address] [place] [address] Hematology/Oncology 10/14/23 Hotel And Dining Room Cashier Relationship Specialty Start Date End Date Isac Billingsley MD [address] [place] [address] PCP - General Family Medicine 07/04/24 Meenu Garay MD [address] [place] [address] Physician Radiation Oncology 09/06/16 Carla Almonte RN Specialty Hydrogeologist Oncology 07/06/17 Meenu Garay MD [address] [place] [address] Physician Radiation Oncology 04/12/19 Mayco Galeano MD [address] [facility] [address] [place], [place] [address] Cardiology 08/18/22 Rip Rivers DO [address] [place], [place] [id number] Hematology/Oncology 10/14/23 Team Status: Active Member Role [...] Provider Active S tart: September 13, 2024 Hotel [facility] Cashier Relationship Specialty Start Date End Date Isac Billingsley MD [address] [facility] [address] [place] [address] PCP - General Family Medicine 09/28/24 Hotel And Dining Room Cashier Relationship Specialty Start Date End Date Isac Billingsley MD [address] [place] [address] PCP - General Family Medicine 07/04/24 Meenu Garay MD [address] [place], [place] [address] Physician Radiation Oncology 09/06/16 Carla Almotne RN Specialty Hydrogeologist Oncology 07/06/17 Meenu Garay MD [address] [place] [address] Physician Radiation Oncology 04/12/19 Mayco Galeano MD [address] [place] [address] Cardiology 08/18/22 Rip Rivers DO [address] [place] [address] Hematology/Oncology 10/14/23 Hotel And Dining Room Cashier Relationship Specialty Start Date End Date Isac Billingsley MD [address] [place] [id number] PCP - General Family Medicine 07/04/24 Meenu Garay MD [address] [place] [address] Physician Radiation Oncology 09/06/16 Carla Almonte RN Specialty Hydrogeologist Oncology 07/06/17 Meenu Garay MD [address] [place] [address] Physician Radiation Oncology 04/12/19 Mayco Galeano MD [address] [place] [address] Cardiology 08/18/22 Rip Rivers DO [address] [place] [address] Hematology/Oncology 10/14/23 Hotel And Dining Room Cashier Relationship Specialty Start Date End Date Isac Billingsley MD [address] [place] [address] PCP - General Family Medicine 07/04/24 Meenu Garay MD [address] [place] [address] Physician Radiation Oncology 09/06/16 Carla Almonte RN Specialty Hydrogeologist Oncology 07/06/17 Meenu Garay MD [address] [place] [address] Physician Radiation Oncology 04/12/19 Mayco Galeano MD [address] [place] [address], [place] [address] Cardiology 08/18/22 Rip Rivers DO [address] [place] [address] Hematology/Oncology 10/14/23 Hotel And Dining Room Cashier Relationship Specialty Start Date End Date Isac Billingsley MD [address] [place] [address] PCP - General Family Medicine 07/04/24 Meenu Garay MD [address] [place] [address] Physician Radiation Oncology 09/06/16 Carla Almonte RN Specialty Hydrogeologist Oncology 07/06/17 Meenu Garay MD [address] [place] [address] Physician Radiation Oncology 04/12/19 Mayco Galeano MD [address] [place] [address] Cardiology 08/18/22 Rip Rivers DO [address] [place] [address] Hematology/Oncology 10/14/23 Hotel And Dining Room Cashier Relationship Specialty Start Date End Date Isac Billingsley MD [address] [facility] [phone] PCP - General Family Medicine 07/04/24 Meenu Garay MD [address] [place] [address] Physician Radiation Oncology 09/06/16 Carla Almonte RN Specialty Hydrogeologist Oncology 07/06/17 Meenu Garay MD [address] [place] [address] Physician Radiation Oncology 04/12/19 Mayco Galeano MD [address] [facility] [address] [place] [address] Cardiology 08/18/22 Rip Rivers DO [address] [place] [address] Hematology/Oncology 10/14/23 Hotel And Dining Room Cashier Relationship Specialty Start Date End Date Isac Billingsley MD [address] [place] [place] [address] PCP - General Family Medicine 07/04/24 Meenu Garay MD [address] [place] [address] Physician Radiation Oncology 09/06/16 Carla Almonte RN Specialty Hydrogeologist Oncology 07/06/17 eMenu Garay MD [address] [place] [address] Physician Radiation Oncology 04/12/19 Mayco Galeano MD [address] [place] [address] Cardiology 08/18/22 Rip Rivers DO [address] [place] [address] Hematology/Oncology 10/14/23 Hotel And Dining Room Cashier Relationship Specialty Start Date End Date Isac Billingsley MD [address] [place] [address] PCP - General Family Medicine 07/04/24 Meenu Garay MD [address] [place] [address] Physician Radiation Oncology 09/06/16 Carla Almonte RN Specialty Hydrogeologist Oncology 07/06/17 Meenu Garay MD [address] [place] [address] Physician Radiation Oncology 04/12/19 Mayco Galeano MD [address] [place] [address] Cardiology 08/18/22 Rip Rivers DO [address] [place] [address] Hematology/Oncology 10/14/23 Hotel And Dining Room Cashier Relationship Specialty Start Date End Date Isac Billingsley MD [address] [place] [place] [address] PCP - General Family Medicine 07/04/24 Meenu Garay MD [address] [place] [address] Physician Radiation Oncology 09/06/16 Carla Almonte, RN Specialty Hydrogeologist Oncology 07/06/17 Meenu Garay MD [address] [place] [address] Physician Radiation Oncology 04/12/19 Mayco Galeano MD [address] [place] [place] [address] Cardiology 08/18/22 Rip Rivers DO [address] [place] [address] Hematology/Oncology 10/14/23 Hotel And Dining Room Cashier Relationship Specialty Start Date End Date Isac Billingsley MD [address] [place] [address] PCP - General Family Medicine 07/04/24 Meenu Garay MD [address] [place] [address] Physician Radiation Oncology 09/06/16 Carla Almonte RN Specialty Hydrogeologist Oncology 07/06/17 Meenu Garay MD [address] [place] [address] Physician Radiation Oncology 04/12/19 Mayco Galeano MD [address] [id number] Cardiology 08/18/22 Rip Rivers DO [address] [place] [address] Hematology/Oncology 10/14/23 Reason for Visit [...] SKULL BASE [employer]-THIGH Rip Rivers DO [address] [facility] [place] [address] Molecular & Functional Imaging [address] [place] [address] Referral ID Status Reason Start Date Expiration Date V isits Requested Visits Authorized [id number] Closed Auto-Generate d Referral 08/12/2021 09/11/2022 1 1 Reason Comments Established Patient Reason Comments [place] Fl[place] Reason Comments Hydrogeologist - Other Follow-up/US Reason Comments Reason Comments Hydrogeologist - Other Nutrition Consu lt/Treatment Question Reason Comments First Time Treatment Education Enhertu Reason Comments Benefits Investigation Reason Comments Radiology US Specialty Diagnoses / Procedures Referred By Contac t Referred To Contact US IMAGING Diagnoses Thyroid nodule Procedures US THYROID/PARATHYROID US SOFT TISSUE HEAD & NECK REAL TIME IMGE DOCM Rip Rivers DO [address] [facility] [place] [address] Us Imaging Referral ID Status Reason Start Date Expiration Date V isits Requested Visits Authorized [id number] Closed Auto-Generate d Referral 09/02/2021 10/02/2022 1 1 Reason Comments Social Work Services Reason Comments Nutrition Assessment Reason Comments Chemotherapy Treatment Specialty Diagnoses / Procedures Referred By Contac t Referred To Contact Diagnoses Malignant neoplasm of lower-inner quadrant of right breast of female, estrogen receptor positive (HCC) Malignant neoplasm metastatic to lung, unspecified laterality (HCC) Bone metastases (HCC) Rip Rivers, DO [address] [facility] [place] [address] [facility] [address] [place] [address] Referral ID Status Reason Start Date Expiration Date V isits Requested Visits Authorized [id number] Authorized 09/02/2021 12/01/2021 99 99 Reason Comments Hydrogeologist - Other C1D1 Post Treat ment Call Reason Comments Blood Draw (CVAD) Reason Comments Established Patient Reason Comments Orders Reason Comments Established Patient Reason Comments Radiology CT Specialty Diagnoses / Procedures Referred By [facility] Referred To Contact CT IMAGING Diagnoses Malignant neoplasm of lower-inner quadrant of right breast of female, estrogen receptor positive (HCC) Bone metastases (HCC) Skin, 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) Malignant neoplasm of right breast in female, estrogen receptor positive, unspecified site of breast (HCC) Procedures CT CHEST W IVCON DIAGNOSTIC COMPUTED TOMOGRAPHY THORAX W/CONTRAST Caity Cote APRN.[employer] [address] [place] [address] Ct Imaging Referral ID Status Reason Start Date Expiration Date V isits Requested Visits Authorized [id number] Closed Auto-Generate d Referral 10/21/2021 11/20/2022 1 1 Reason Comments Non-Chemotherapy Treatment Specialty Diagnoses / Procedures Referred By [facility] Referred To Contact Diagnoses Chemotherapy induced diarrhea Bone metastases (HCC) Rip Rivers, DO [address] [facility] [place] [address] [facility] [address] [place] [address] Referral ID Status Reason Start Date Expiration Date V isits Requested Visits Authorized [id number] Authorized 04/09/2021 07/08/2021 99 99 Reason Comments Follow Up Specialty Diagnoses / Procedures Referred By [facility] Referred To Contact Diagnoses Malignant neoplasm of lower-inner quadrant of right breast of female, estrogen receptor positive (HCC) Malignant neoplasm metastatic to lung, unspecified laterality (HCC) Bone metastases (HCC) Rip Rivers, DO [address] [place] [address] [facility] [address] [place] [address] Reason Comments Follow Up review labs for chem o tomorrow Reason Comments Established Patient Reason Comments Orders Specialty Diagnoses / Procedures Referred By [facility] Referred To Contact CT IMAGING Diagnoses Malignant neoplasm of lower-inner quadrant of right breast of female, estrogen receptor positive (HCC) Bone metastases (HCC) Malignant neoplasm metastatic to both lungs (HCC) Skin, 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) Procedures CT CHEST W IVCON DIAGNOSTIC COMPUTED TOMOGRAPHY THORAX W/CONTRAST Caity Cote, EREN.[employer] [address] [place] [phone] Imaging Referral ID Status Reason Start Date Expiration Date V isits Requested Visits Authorized [id number] Closed Auto-Generate d Referral 12/23/2021 01/22/2023 1 1 Specialty Diagnoses / Procedures Referred By [facility] Referred To Contact Diagnoses Malignant neoplasm of lower-inner quadrant of right breast of female, estrogen receptor positive (HCC) Malignant neoplasm metastatic to lung, unspecified laterality (HCC) Bone metastases (HCC) Rip Rivers DO [address] [place] [address] [facility] [address] [place] [address] Reason Comments Refill Request Reason Comments Patient Update Reason Comments AVS Reason Comments Electronic Communication Reason Comments CVAD Access Reason Comments Results Low potassium Reason Comments handicapp placard request Reason Comments Patient Question Reason Comments Results CTs Specialty Diagnoses / Procedures Referred By [facility] Referred To Contact Diagnoses Malignant neoplasm of lower-inner quadrant of right breast of female, estrogen receptor positive (HCC) Malignant neoplasm metastatic to lung, unspecified laterality (HCC) Bone metastases Rip Rivers, DO [address] [place] [address] [facility] [address] [place] [address] Reason Onset Date Comments Refill Request 09/29/2022 [...] metastases Rip Rivers, DO [address] [place] [address] [facility] [address] [place] [address] Reason Comments Results Reason Comments Future Appointment Reason Comments Recheck Specialty Diagnoses / Procedures Referred By Contac t Referred To Contact CT IMAGING Diagnoses Malignant neoplasm metastatic to bone (HCC) Procedures CT CHEST WO IVCON DIAGNOSTIC COMPUTED TOMOGRAPHY THORAX W/O CNTRST Rip Rivers, DO [address] [place] [address] Ct Imaging [facility] Referral ID Status Reason Start Date Expiration Date V isits Requested Visits Authorized [id number] Closed Auto-Generate d Referral 02/23/2023 03/24/2024 1 1 Specialty Diagnoses / Procedures Referred By Conttio t Referred To Contact CT IMAGING Diagnoses Malignant neoplasm of lower-inner quadrant of right breast of female, estrogen receptor positive (HCC) Bone metastases Malignant neoplasm metastatic to both lungs (HCC) Procedures CT CHEST W IVCON DIAGNOSTIC COMPUTED TOMOGRAPHY THORAX W/CONTRAST Rip Rivers, DO [address] [place] [address] [place] [address] Referral ID Status Reason Start Date Expiration Date V isits Requested Visits Authorized [id number] Closed Auto-Generate d Referral 07/30/2022 08/29/2023 1 1 Referral ID Status Reason Start Date Expiration Date V isits Requested Visits Authorized [id number] Closed Auto-Generate d Referral 07/06/2022 08/05/2023 1 [...] THORAX W/CONTRAST Rip Rivers, DO [address] [facility] [place] [address] [place] [address] Referral ID Status Reason Start Date Expiration Date V isits Requested Visits Authorized [id number] Closed Auto-Generate d Referral 12/22/2022 01/21/2024 1 1 Specialty Diagnoses / Procedures Referred By Contac t Referred To Contact CT IMAGING Diagnoses Malignant neoplasm of lower-inner quadrant of right breast of female, estrogen receptor positive (HCC) Bone metastases Procedures CT CHEST W IVCON DIAGNOSTIC COMPUTED TOMOGRAPHY THORAX W/CONTRAST Caity Cote APRN.[employer] [address] [place] [address] [place] [address] Referral ID Status Reason Start Date Expiration Date V isits Requested Visits Authorized [id number] Closed Auto-Generate d Referral 04/14/2022 05/14/2023 1 1 Reason Onset Date Comments Refill Request 04/25/2023 Specialty Diagnoses / Procedures Referred By Contac t Referred To Contact Diagnoses Malignant neoplasm of lower-inner quadrant of right breast of female, estrogen receptor positive (HCC) (HCC) Malignant neoplasm metastatic to lung, unspecified laterality (HCC) Bone metastases iRp Rivers, DO [address] [place] [address] [facility] [address] [place] [address] Specialty Diagnoses / Procedures Referred By Contac t Referred To Contact CT IMAGING Diagnoses Malignant neoplasm metastatic to left lung (HCC) Procedures CT CHEST WO IVCON DIAGNOSTIC COMPUTED TOMOGRAPHY THORAX W/O Meenu Kang MD [address] [facility] [place] [place] [address] [place] [address] Referral ID Status Reason Start Date Expiration Date V isits Requested Visits Authorized [id number] Closed Auto-Generate d Referral 08/03/2023 07/07/2024 1 1 Reason Comments Recheck Specialty Diagnoses / Procedures Referred By Contac t Referred To Contact Diagnoses Malignant neoplasm of lower-inner quadrant of right breast of female, estrogen receptor positive (HCC) Malignant neoplasm metastatic to lung, unspecified laterality (HCC) Bone metastases Rip Rivers, DO [address] [place] [address] [facility] [address] [place] [address] Reason Comments Radiology [place] Reason Comments Appointment [...] W/IMAGE LIMITED Rip Rivers, DO [address] [place] [address] [place] [address] Referral ID Status Reason Start Date Expiration Date V isits Requested Visits Authorized [id number] Closed Auto-Generate d Referral 08/30/2023 2024 1 1 Specialty Diagnoses / Procedures Referred By Contac t Referred To Contact Diagnoses Malignant neoplasm of lower-inner quadrant of right breast of female, estrogen receptor positive (HCC) Malignant neoplasm metastatic to lung, unspecified laterality (HCC) Malignant neoplasm metastatic to bone (HCC) HER2-positive carcinoma of breast (HCC) Rip Rivers, DO [address] [place] [address] [facility] [address] [place] [address] Referral ID Status Reason Start Date Expiration Date V isits Requested Visits Authorized [id number] Authorized 08/30/2023 11/28/2023 99 99 Reason Onset Date Comments Simulation Request Form 09/12/2023 Reason Comments Patient Education Discharge instructio ns-completed radiation Reason Comments Question Reason Comments Hydrogeologist - Other Oral Follow-up Reason Onset Date Comments SPP Oral Oncology/hematology - Medication Refill 11/01/2023 Capecitabine 500mg Reason Comments Hydrogeologist - Other Oral Anti-Cance r Agents Follow-up Reason Comments Medication Question Reason Comments Establish Care DEVELOPER EVANGELIST/EST CARE Reason Onset Date Comments SPP Oral [...] DIAGNOSTIC COMPUTED TOMOGRAPHY THORAX W/CONTRAST Caity Cote APRN.[employer] [address] [place] [address] Ct Imaging [place] [address] Referral ID Status Reason Start Date Expiration Date V isits Requested Visits Authorized [id number] Closed Auto-Generate d Referral 12/14/2023 01/12/2025 1 [...] W/O CNTRST Rip Rivers, DO [address] [place] [address] [place] [address] Referral ID Status Reason Start Date Expiration Date V isits Requested Visits Authorized [id number] Closed Auto-Generate d Referral 01/04/2024 02/02/2025 1 1 Reason Comments Results Reason Comments Hydrogeologist - Other Follow-up Reason Comments Question Reason [...] Capecitabine Specialty Diagnoses / Procedures Referred By [facility] Referred To Contact CT IMAGING Diagnoses Malignant neoplasm of lower-inner quadrant of right breast of female, estrogen receptor positive (HCC) Malignant neoplasm metastatic to bone (HCC) Malignant neoplasm metastatic to both lungs (HCC) Procedures CT ABD/PEL W IVCON CT ABD & PELVIS W/CONTRAST Rip Rivers, DO [address] [place] [address] [place] [address] Referral ID Status Reason Start Date Expiration Date V isits Requested Visits Authorized [id number] Closed Auto-Generate d Referral 03/21/2024 04/20/2025 1 1 Specialty Diagnoses / Procedures Referred By [facility] Referred To Contact CT IMAGING Diagnoses Malignant neoplasm of lower-inner quadrant of right breast of female, estrogen receptor positive (HCC) Malignant neoplasm metastatic to bone (HCC) Malignant neoplasm metastatic to both lungs (HCC) Procedures CT ABD/PEL W IVCON CT ABD & PELVIS W/CONTRAST Rip Rivers, DO [address] [facility] [place] [place] [address] [place] [address] Reason Onset Date Comments SPP Oral Oncology/hematology [...] breast (HCC) Rip Rivers, DO [address] [place] [address] Phone: tel: fax: Hematology/Oncology [address] [phone] Phone: tel: fax: Reason Comments Tuk[employer] Assistance Reason Comments Established Patient Reason Onset Date Comments SPP Oral Oncology/hematology - Medication Refill 08/27/2024 Capecitabine 500mg Specialty Diagnoses / Procedures Referred By Contac t Referred To Contact US IMAGING Diagnoses History of thyroid nodule Procedures US THYROID/PARATHYROID US SOFT TISSUE HEAD & NECK REAL TIME IMGE DOC Rip Rivers, DO [address] [place] [address] Phone: tel: fax: [place] [address] Referral ID Status Reason Start Date Expiration Date V isits Requested Visits Authorized [id number] Closed Auto-Generate d Referral 08/15/2024 09/14/2025 1 [...] PELVIS W/CONTRAST Rip Rivers, DO [address] [facility] [place] [place] [address] Phone: tel: fax: [place] [address] Referral ID Status Reason Start Date Expiration Date V isits Requested Visits Authorized [id number] Closed Auto-Generate d Referral 08/15/2024 09/14/2025 1 [...] 30 Minutes, ONCE, 1 dose, On Amarilys 09/22/23 at 1230, Approx Total Volume:exp 1100 09/27/23 (refrigerated) DO NOT SHAKE Refrigerate New Bag/Syringe/Bottle 09/22/2023 1:22 PM EDT 506.4 mg zoledronic [id number] 4 mg iv piggyback 100 mL (ZOMETA) 4 mg, INTRAVENOUS, Administer over 15 Minutes, ONCE, 1 dose, On Amarilys 09/22/23 at 1300, Hazardous Potential Reproductive Risk Drug: Use appropriate PPE. New Bag/Syringe/Bottle 09/22/2023 1:00 PM EDT 4 mg INFORMATION SOURCE (unrecogn ized section and content) DATE CREATED AUTHOR 08/24/2023 [facility] DATE CREATED AUTHOR AUTHOR'S ORGANIZ ATION 09/29/2024 [facility] DATE CREATED AUTHOR AUTHOR'S ORGANIZ ATION 12/14/2024 [facility] DATE CREATED AUTHOR AUTHOR'S ORGANIZ ATION 12/17/2024 [facility] FOR RECORDS PERTAINING TO PATIENTS WHO ARE [...] BE BASED ON THE PRIMARY CLINICAL RECORDS. [employer] provides no warranty or guarantee of the accuracy or completeness of information in this document.
== END | disposition home or self-care (01) ==
LOC: CVS 06:41
PROVIDERS: PCP Family Medicine; Referring Provider Nurse Practitioner; Visit Provider Nurse Practitioner
DX: C50.311 Malignant neoplasm of lower-inner quadrant of right female breast (principal); C78.01 Secondary malignant neoplasm of right lung; C78.02 Secondary malignant neoplasm of left lung; C79.51 Secondary malignant neoplasm of bone; Z17.0 Estrogen receptor positive status [ER+]; Z17.31 Human epidermal growth factor receptor 2 positive status; I42.7 Cardiomyopathy due to drug and external agent; T45.1X5A Adverse effect of antineoplastic and immunosuppressive drugs, initial encounter
CPT/HCPCS: 93306; 93356

== ENCOUNTER 2025-03-08 15:39 | Inpatient (IN) | payer MEDICARE, OTHER, SELFPAY ==
[2025-03-08] VITALS (14 sets, daily range): BP systolic 133–173; BP diastolic 59–107; PULSE 59–91; RESP 15–25; TEMP 36.4–36.6; O2SAT 86–97; BMI 33.9; BMI 32.8
--- NOTE | 2025-03-08 16:06 | EKG12_ITS ---
Test Reason : SOB Blood Pressure : */* mmHG Vent. Rate : 62 BPM Atrial Rate : 62 BPM P-R Int : 188 ms QRS Dur : 78 ms QT Int : 426 ms P-R-T Axes : -13 -41 67 degrees QTcB Int : 432 ms Normal sinus rhythm Left axis deviation Inferior infarct , age undetermined Abnormal ECG Confirmed by JAVIER RG, PETER ([id number]), business editor CHEY CHOWDHURY ([id number]) on 03/11/2025 6:29:55 AM Referred By: Confirmed By: PETER HERRERA MD
--- NOTE | 2025-03-08 16:06 | CT_ITS ---
PROCEDURE: CTA CHEST W/WO CONTRAST 03/08/2025 REASON FOR EXAM: SHORTNESS OF BREATH AND HYPOXIA. POSSIBLE PE TECHNIQUE: Procedure Code: [id number] Modality: CT Procedure: CTA CHEST W/WO CONTRAST Multidetector CT angiography of the chest with intravenous contrast including multiplanar and post-processed maximum intensity projection (MIP) were generated and interpreted. CONTRAST: Isovue 370 VOLUME: 100 mL One or more dose reduction techniques were used (e.g., Automated exposure control, adjustment of the mA and/or kV according to patient size, use of iterative reconstruction technique). RADIATION DOSE SUMMARY: DLP: 490.44 mGycm COMPARISON: CTA chest 02/17/2023 FINDINGS: Opacification of the pulmonary arterial tree is adequate. Pulmonary artery and thoracic vessels: There are no filling defects in the central pulmonary arteries. The main pulmonary artery is top-normal in size. The thoracic aorta are normal in caliber. Pulmonary parenchyma: Atelectasis of the right middle lobe. Mosaic attenuation of the bilateral lungs. Right lower lobe solid nodule measuring a proximally 1.1 x 1.4 cm. Airways: There is opacification of several right middle lobe subsegmental bronchi. The trachea and right and left main bronchi are patent. Pleural space: No pneumothorax or pleural effusion. Heart and pericardium: The heart is normal in size. No pericardial effusion. Mediastinum and jenny: Unremarkable. Osseous structures: No aggressive osseous lesion. Degenerative changes of the thoracic spine. Loss of the usual thoracic kyphosis. Upper visualized abdomen: Hiatal hernia. CT/CTA Chest W/WO Contrast IMPRESSION: 1. No pulmonary embolism. 2. Right middle lobe atelectasis. Opacification of several right middle lobe s ubsegmental bronchi. 3. Mosaic attenuation of the bilateral lungs, nonspecific. Etiologies include underlying infection or small airway disease, among other etiologies. 4. Right lower lobe solid pulmonary nodule measuring up to 1.4 cm. Reading Location: [id number]
--- NOTE | 2025-03-08 16:08 | ED.VIS.DYS ---
HPI History of Present Illness Chief Complaint: Shortness of Breath Informant: patient Onset/Context/Timing Onset: Days Context: gradual Timing: Continuous Quality: Positive for Dyspnea on exertion Current Severity: Moderate Maximum Severity: Moderate Worsened by: Exertion and Coughing Relieved by: Oxygen Associated Symptoms cough Chest Pain: Positive for None Narrative Narrative: 69-year-old female history of breast cancer with metastases to her lungs. Currently undergoing radiation therapy. States she has been short of breath since Tuesday. Pulse ox has been as low as 73%. Has had a nonproductive cough. No fever or chills. No hemoptysis. Denies any chest pain. No history of any leg pain or swelling. Prior history of a DVT many years ago. No prior PE. PE Risk Factors: Positive for Cancer and Prior DVT or PE; Negative for Recent immobilization, Recent surgery or Recent travel Prior similar symptoms: No Recent Illness/Hospitalization: No PFSH PFS Medical History Elevated d-dimer Obesity Breast cancer metastasized to bone Breast cancer metastasized to lung Non-ischemic cardiomyopathy Chemotherapy management, encounter for Breast cancer, right breast Home Medications ?Medication ?Instructions ?Recorded ?Last Taken ?Type naproxen sodium 220 mg capsule 220 mg PO Q8H PRN PRN Pain Or Fever 03/29/19 Unknown History metoprolol tartrate 25 mg tablet 25 mg PO BID 01/22/20 Unknown History pregabalin 150 mg capsule 150 mg PO BID 09/15/21 Unknown History multivitamin 1 tab PO DAILY 11/26/22 Unknown History diphenhydramine HCl 25 mg capsule 25 mg PO QHS 02/16/23 Unknown History (Benadryl) acetaminophen 500 mg capsule 500 mg PO .COMPLEX 02/17/23 Unknown History losartan 100 mg tablet 100 mg PO DAILY for blood pressure 02/03/24 Unknown Rx #90 TABLETS lorazepam 0.5 mg tablet 0.5 mg PO Q12H PRN anxiety 03/08/25 Unknown History promethazine 25 mg tablet 25 mg PO Q6H PRN PRN nausea 03/08/25 Unknown History Allergy/AdvReac Type Severity Reaction Status Date / Time nirmatrelvir (From Paxlovid) Allergy Intermediate KIDNEY Verified 03/08/25 15:39 ritonavir (From Paxlovid) Allergy Intermediate KIDNEY Verified 03/08/25 15:39 acetaminophen (From Percocet) Allergy hives and Verified 03/08/25 15:39 nausea amoxicillin Allergy Fever and Verified 03/08/25 15:39 skin rash Cephalosporins Allergy Fever and Verified 03/08/25 15:39 skin rash ciprofloxacin (From Cipro) Allergy Fever and Verified 03/08/25 15:39 skin rash codeine Allergy Fever and Verified 03/08/25 15:39 skin rash erythromycin base Allergy Fever and Verified 03/08/25 15:39 skin rash hydrocodone (From [place]) Allergy hives and Verified 03/08/25 15:39 nausea latex Allergy Rash Verified 03/08/25 15:39 nalbuphine (From Nubain) Allergy Fever and Verified 03/08/25 15:39 skin rash oxycodone (From Percocet) Allergy hives and Verified 03/08/25 15:39 nausea prednisone Allergy hives Verified 03/08/25 15:39 with blood underneath Sulfa (Sulfonamide Allergy Fever and Verified 03/08/25 15:39 Antibiotics) skin rash aspirin AdvReac stomach Verified 03/08/25 15:39 bleed AND DARK STOOL Food Allergies: Uncoded AdvReac migraine Verified 03/08/25 15:39 meperidine (From Demerol) AdvReac Upset Verified 03/08/25 15:39 Stomach Family History Sister A-fib CAD (coronary artery disease) Grandmother A-fib Surgical History History of right mastectomy History of appendectomy History of lumpectomy of right breast Social History Smoking Status: Never smoker alcohol intake: never substance use type: does not use caffeine: No what type of physical activity do you participate in: none seatbelt use: always do you feel safe at home: Yes ROS ROS ED ROS Narrative Shortness of breath. Cough. Constitutional Constitutional ED: Denies chills or fever(s) Eyes Eyes: Denies blurry vision ENT ENT ED: Denies ear pain Cardiovascular Cardiovascular: Denies chest pain, orthopnea, palpitations or racing heartbeat Respiratory/Chest Respiratory/Chest: Reports cough, dyspnea and dyspnea on exertion; Denies orthopnea or sputum Gastrointestinal Gastrointestinal: Reports diarrhea; Denies abdominal pain, constipation, melena, nausea or vomiting Genitourinary Genitourinary ED: Denies dysuria or hematuria Musculoskeletal Musculoskeletal: Denies arthralgias Integumentary Denies abscess Neurologic Neurologic: Denies headache(s) Psychiatric Psychiatric: Denies anxiety Endocrine Endocrinology: Denies cold intolerance Hematologic/Lymphatic Hematologic/Lymphatic: Denies easy bleeding, easy bruising or lymphadenopathy Allergic/Immunologic Allergic/Immunologic ED: Denies mouth swelling, tongue swelling or urticaria EXAM Physical Exam Narrative Exam Narrative: 69-year-old female sitting upright in bed. Vital signs are stable afebrile. Pulse ox is 90% on room air no hypoxia. H EENT exam pupils are round react to light. Moist weeks membranes. Neck nontender no JVD. No lymphadenopathy. Lungs clear to auscultation bilaterally. No rales or rhonchi. No wheezing. Heart regular rhythm rate about 60 no murmur. Chest wall ribs nontender. Right mastectomy. Abdomen is soft and nontender. Moving all 4 extremities. Calves are nontender without edema or cords. Normal strength. Back nontender. Neurologically she is awake and alert. Answering questions following commands. Const Vital Signs: 03/08/25 15:39 03/08/25 16:04 03/08/25 16:04 Temperature 97.7 F L Temperature Source Temporal Pulse Rate 61 Respiratory Rate 18 Respiratory Effort Short of Breath Blood Pressure 154/78 H Blood Pressure Mean 103 Pulse Ox 92 Oxygen Delivery Method Room Air Room Air Room Air 03/08/25 16:06 03/08/25 16:19 03/08/25 16:39 Temperature 97.7 F L Temperature Source Oral Pulse Rate 61 70 Respiratory Rate 23 H 22 H Respiratory Effort Blood Pressure 154/74 H 133/107 H Blood Pressure Mean 100 115 Pulse Ox 94 93 Oxygen Delivery Method Room Air Room Air Room Air 03/08/25 17:00 03/08/25 18:00 03/08/25 19:00 Temperature 97.7 F L 97.7 F L 97.7 F L Temperature Source Oral Oral Oral Pulse Rate 65 61 60 Respiratory Rate 25 H 15 19 H Respiratory Effort Blood Pressure 173/83 H 160/77 H 155/71 H Blood Pressure Mean 113 104 99 Pulse Ox 92 93 91 Oxygen Delivery Method Room Air Room Air Room Air 03/08/25 20:00 Temperature 97.7 F L Temperature Source Temporal Pulse Rate 59 L Respiratory Rate 17 Respiratory Effort Blood Pressure 156/73 H Blood Pressure Mean 100 Pulse Ox 90 Oxygen Delivery Method Room Air Positive well nourished and well developed; Negative for cachectic, contractures or unkempt General Appearance ED: well developed and NAD; Negative for unkempt, cachectic, contractures or pallor Nutritional Appearance: Negative for cachectic HEENT Reports moist mucous membranes atraumatic; Negative for trauma or tenderness Eyes PERRL and EOMs intact bilaterally Neck no lymphadenopathy, supple, no meningeal signs and no JVD Resp normal respiratory effort and clear to auscultation bilaterally Cardio regular rate, regular rhythm, S1 normal heart sound, S2 normal heart sound and no murmurs GI non-tender, non-distended and no masses Auscultation: normoactive bowel sounds Palpation: soft; Negative for tender, guarding or rebound tenderness present Back/Spine no CVA tenderness and normal to inspection Extremity normal to inspection General Extremety ED: Negative for edema or tenderness General Extremity: Negative for edema Neuro oriented x3, CN's II-XII intact bilaterally and no sensory deficits noted Sensorium / Orientation: alert, oriented to person, oriented to place and oriented to time Speech: speech normal Motor Exam: strength 5/5 throughout Psych mental status grossly normal Appearance: Negative for unkempt Thought Process: normal thought process Skin no wounds and skin turgor normal General Skin Exam: Negative for jaundice or pallor Lesions: no lesions Rashes: no rashes MDM MDM MDM Narrative Medical decision making narrative: 69-year-old female history of breast cancer with lung mets complaining shortness of breath differential will include pulmonary emboli, pleural effusion, pneumonia versus other etiologies. CTA of her chest, EKG and labs will be done. Repeat exam no significant change. Patient I went over her test results. This may be due to obstruction in her lungs causing atelectasis from her metastases to could be from cardiomyopathy. I spoke to the hospitalist given her hypoxia she will need to be admitted. I discussed all that with the patient and she is comfortable with the plan. History & Record Review Discussion w/independent historian: Patient and Family Additional record(s) reviewed:: Prior inpatient record, Prior outpatient record, Prior ED visit and Prior labs Lab Data Attestation: I reviewed the patient's lab results. Lab results narrative: CBC showed a white count 3.7. H&H 13 and 39. Platelets 138. PT/INR 13 and 1. PTT 24. BMP showed gap of 10. BUN and creatinine 8 and 0.9. Glucose 101. Troponin 19. 2-hour troponin elevated at 40. CTA chest showed lung collapse with atelectasis. Possibly post obstruction from mass. No PE. No pneumonia. Labs: Laboratory Results - last 24 hr 03/08/25 03/08/25 16:02 18:08 WBC 3.7 L RBC 3.64 L Hgb 13.1 Hct 39.4 MCV 108.2 H MCH 36.0 H MCHC 33.2 RDW Std Deviation 55.7 H RDW Coeff of Martin 13.7 Plt Count 138 L MPV 10.0 Immature Gran % (Auto) 0.500 Neut % (Auto) 72.3 H Lymph % (Auto) 12.0 L [place] % (Auto) 11.2 H Eos % (Auto) 3.5 Baso % (Auto) 0.5 Absolute Neuts (auto) 2.7 Absolute Lymphs (auto) 0.45 L Nucleated RBC % 0 PT 13.6 INR 1.0 APTT 24.9 Sodium 141 Potassium 4.1 Chloride 105 Carbon Dioxide 26.6 Anion Gap 10 BUN 8 Creatinine 0.93 Estim Creat Clear Calc 53.64 Est GFR (MDRD) Non-Af 66 BUN/Creatinine Ratio 9.1 L Glucose 101 H Calcium 9.4 Troponin T High Sens 19 H Troponin T Hi Sens 2 Hr 40 H Radiography Diagnostic Testing: Clinical Impression(s) from Imaging Studies Chest CTA 03/08/25 16:06 IMPRESSION: 1. No pulmonary embolism. 2. Right middle lobe atelectasis. Opacification of several right middle lobe subsegmental bronchi. 3. Mosaic attenuation of the bilateral lungs, nonspecific. Etiologies include underlying infection or small airway disease, among other etiologies. 4. Right lower lobe solid pulmonary nodule measuring up to 1.4 cm. Reading Location: [facility] Rhythm Strip Rhythm Strip: Sinus Rhythm Rate: 62 Ectopy: None EKG Initial EKG: Attestation: I personally reviewed and interpreted this EKG as follows: Interpretation: Sinus Rhythm and No Acute Injury Pattern Discharge Plan Dx/Rx/DC Orders Clinical Impression: Hypoxia, Atelectasis of both lungs, History of breast cancer, Breast cancer metastasized to bone, Cardiomyopathy Disposition Disposition: Acute Care Hospital [facility]
[2025-03-08 16:30] LABS: Hematocrit 39.4 % (37-47); Hemoglobin 13.1 g/dL (12.0-15.0); Immature Granulocytes Count 0.020 X10^3/uL (0.0-0.0); Mean Corp Hgb Conc 33.2 g/dL (32-36); Mean Corpuscular Volume 108.2 fL (81-99); Mean Platelet Vol. 10.0 fl (6.2-12.0); NRBC Flagged by Analyzer 0 % (0-5); POSITIVE DIFFERENTIAL YES; Platelet Count 138 K/mm3 (150-450); RBC Distribution Width CV 13.7 % (11.6-14.6); RBC Distribution Width SD 55.7 fl (35.1-43.9); Red Blood Count 3.64 M/mm3 (4.2-5.4); White Blood Count 3.7 K/mm3 (4.4-11.0)
[2025-03-08 16:37] LABS: Anion Gap 10 (5-15); BUN 8 mg/dL (4-19); BUN/Creat Ratio 9.1 RATIO (10-20); Calcium,Total 9.4 mg/dL (7.6-11.0); Carbon Dioxide 26.6 mmol/L (21.0-32.0); Chloride 105 mmol/L (98-108); Estimated Creatinine Clearance 53.64 ml/min (50-250); Glucose 101 mg/dL (70-99); Potassium 4.1 mmol/L (3.3-5.1); Troponin T High Sensitivity 19 ng/L (<=14)
[2025-03-08 16:51] LABS: Prothrombin Time (Protime)PT. 13.6 SECONDS (11.7-14.9)
[2025-03-08 16:52] LABS: Partial Thromboplast Time 24.9 Seconds (24.1-36.2)
[2025-03-08 18:49] LABS: Troponin T High Sens 2 HR 40 ng/L (<=14)
--- NOTE | 2025-03-08 20:29 | HP.PCM.HOS_ITS ---
HPI - General General Date of Admission: 03/08/25 Date of Service: 03/08/25 Chief Complaint: Dyspnea, outside hospital reported hypoxia. HPI Narrative The patient is a 69 y/o F w/ PMHx: Obesity, HTN, CKD stage II per GFR trending, Chronic thrombocytopenia, R sided breast cancer w/ metastatic disease to lung, bone status post right mastectomy and lumpectomy following with [facility] oncology Dr. 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 She does also report loose stools with ongoing treatments. Workup in the ED included T97.7, heart rate 61, BP 154/78, respiratory rate 18, 92% on room air with most recent repeat vitals T97.7, heart rate 61, BP 160/77, respiratory rate 15, 93% on room air, CBC with WBC 3.7, hemoglobin 13.1, MCV 108.2, platelet 138 with lymphopenia, unremarkable coags, BMP with BUN/creatinine 8/0.93, GFR 66, glucose 101, troponin initial at 19 with repeat 2-hour 40, CTA chest with no PE, right middle lobe atelectasis, opacification several right middle lobe segment segmental bronchi, mosaic attenuation bilateral lungs nonspecific possibly infectious versus small airway disease, right lower lobe solid pulmonary nodule measuring up to 1.4 cm, EKG with SR with no acute evidence of ischemia. In the ED patient administered ativan 1 mg IV x 1 (anxious with CT). [facility] Medical History Elevated d-dimer Obesity Breast cancer metastasized to bone Breast cancer metastasized to lung Non-ischemic cardiomyopathy Chemotherapy management, encounter for Breast cancer, right breast Home Medications ?Medication ?Instructions ?Recorded ?Last Taken ?Type naproxen sodium 220 mg capsule 220 mg PO Q8H PRN PRN P ain Or Fever 03/29/19 Unknown History metoprolol tartrate 25 mg tablet 25 mg PO BID 01/22/20 Unknown History pregabalin 150 mg capsule 150 mg PO BID 09/15/21 Unkno wn History multivitamin 1 tab PO DAILY 11/26/22 Unkn own History diphenhydramine HCl 25 mg capsule 25 mg PO QHS 3 Unknown History (Benadryl) acetaminophen 500 mg capsule 500 mg PO .COMPLEX Unknown History losartan 100 mg tablet 100 mg PO DAILY for blood pr essure 02/03/24 Unknown Rx #90 TABLETS lorazepam 0.5 mg tablet 0.5 mg PO Q12H PRN anxiety 1 Unknown History promethazine 25 mg tablet 25 mg PO Q6H PRN PRN nausea 03/08/25 Unknown History Allergy/AdvReac Type Severity Reaction Status Date / Time nirmatrelvir (From Paxlovid) Allergy Intermediate KIDNEY Verified 03/08/25 15:39 ritonavir (From Paxlovid) Allergy Intermediate KIDNEY Verified 03/08/25 15:39 acetaminophen (From Percocet) Allergy hives and Verified 03/08/25 15:39 nausea amoxicillin Allergy Fever and Verified 03/08/25 15:39 skin rash Cephalosporins Allergy Fever and Verified 03/08/25 15:39 skin rash ciprofloxacin (From Cipro) Allergy Fever and Verified 03/08/25 15:39 skin rash codeine Allergy Fever and Verified 03/08/25 15:39 skin rash erythromycin base Allergy Fever and Verified 03/08/25 15:39 skin rash hydrocodone (From [place]) Allergy hives and Verified 03/08/25 15:39 nausea latex Allergy Rash Verified 03/08/25 15:39 nalbuphine (From [place]) Allergy Fever and Verified 03/08/25 15:39 skin rash oxycodone (From Percocet) Allergy hives and Verified 03/08/25 15:39 nausea prednisone Allergy hives Verified 03/08/25 15:39 with blood underneath Sulfa (Sulfonamide Allergy Fever and Verified 03/08/25 15:39 Antibiotics) skin rash aspirin AdvReac stomach Verified 03/08/25 15:39 bleed AND DARK STOOL Food Allergies: Uncoded AdvReac migraine Verified 03/08/25 15:39 meperidine (From Demerol) AdvReac Upset Verified 03/08/25 15:39 Stomach Family History (Updated 03/08/25 @ 21:[address] Emely Bai MD) Sister A-fib CAD (coronary artery disease) Grandmother A-fib Mother Melanoma Father Heart disease Hypertension Heart failure Surgical History History of right mastectomy History of appendectomy History of lumpectomy of right breast Social History (Updated 03/08/25 @ 21:[address] Emely Bai MD) household members: spouse Smoking Status: Never smoker alcohol intake: never substance use type: does not use caffeine: No what type of physical activity do you participate in: none seatbelt use: always do you feel safe at home: Yes ROS ROS Narrative Admission Review of Systems: CONSTITUTIONAL: No weight loss, fever, chills, + weakness or fatigue. HEENT: Eyes: No visual loss, blurred vision, double vision or yellow sclerae. Ears, Nose, Throat: No hearing loss, sneezing, congestion, runny nose or sore throat. SKIN: No rash or itching, lesions, wounds. CARDIOVASCULAR: No chest pain, chest pressure or chest discomfort, palpitations, edema, orthopnea, syncopal events. RESPIRATORY: + Dyspnea, nonproductive cough. No marked sputum, wheezing, hemoptysis. GASTROINTESTINAL: + Decreased appetite, loose stools. No nausea, vomiting, abdominal pain, melena, BRBPR. GENITOURINARY: No dysuria, frequency, urgency or retention. NEUROLOGICAL: + Chronic chemotherapy-induced neuropathy. No headache, dizziness, syncope, paralysis, ataxia, focal weakness, change in bowel or bladder control, seizure. MUSCULOSKELETAL: + muscle, back pain, joint pain or stiffness. HEMATOLOGIC: No anemia. + Easy bleeding/bruising. LYMPHATICS: No enlarged nodes. No history of splenectomy. PSYCHIATRIC: + Hx anxiety. ENDOCRINOLOGIC: No reports of sweating, cold or heat intolerance. No polyuria or polydipsia. ALLERGIES: + History of hives. Vital Signs Vital Signs Vital Signs: 03/08/25 15:39 03/08/25 16:04 03/08/25 16:04 Temperature 97.7 F L Temperature Source Temporal Pulse Rate 61 Respiratory Rate 18 Respiratory Effort Short of Breath Blood Pressure 154/78 H Blood Pressure Mean 103 Pulse Ox 92 Oxygen Delivery Method Room Air Room Air Room Air 03/08/25 16:06 03/08/25 16:19 03/08/25 16:39 Temperature 97.7 F L Temperature Source Oral Pulse Rate 61 70 Respiratory Rate 23 H 22 H Respiratory Effort Blood Pressure 154/74 H 133/107 H Blood Pressure Mean 100 115 Pulse Ox 94 93 Oxygen Delivery Method Room Air Room Air Room Air 03/08/25 17:00 03/08/25 18:00 03/08/25 19:00 Temperature 97.7 F L 97.7 F L 97.7 F L Temperature Source Oral Oral Oral Pulse Rate 65 61 60 Respiratory Rate 25 H 15 19 H Respiratory Effort Blood Pressure 173/83 H 160/77 H 155/71 H Blood Pressure Mean 113 104 99 Pulse Ox 92 93 91 Oxygen Delivery Method Room Air Room Air Room Air 03/08/25 20:00 Temperature 97.7 F L Temperature Source Temporal Pulse Rate 59 L Respiratory Rate 17 Respiratory Effort Blood Pressure 156/73 H Blood Pressure Mean 100 Pulse Ox 90 Oxygen Delivery Method Room Air Weight Weight: 179 lb 7.3 oz Body Mass Index (BMI) 33.9 Physical Exam Narrative Physical Examination: General: Awake, alert, oriented x 3 and cooperative, seated upright in ED bed, fatigued, no acute distress. Skin: Normal color, normal turgor, no icterus, no cyanosis except occasional stage ecchymoses, abrasions. HEENT: AT/NC, EOMI, PERRLA, MMM, no carotid bruits, no marked JVD noted. Lungs: Diminished, greater bases, mildly increased respiratory rate but no distress, no appreciated rales, ronchi or wheezing. Heart: Regular rate and rhythm; no gallop, rub audible. Abdomen: Soft, obese, NTTP, ND, mildly hyperactive BS, no markedly appreciated HSM. Extremities: No cyanosis, no clubbing, no significant distal pitting edema. Neurological: Patient awake, alert, oriented as noted, cognitive function intact; pupils equally reactive to light and accommodation, cranial nerves grossly normal, moving all 4 extremities, no focal deficits, strength moderately globally decreased. Psychiatric: Affect appears fatigued otherwise normal, no acute evidence of depressive or anxiety feelings. Results Lab / Micro Data 03/08/25 16:02 03/08/25 16:02 Labs: Laboratory Results - last 24 hr 03/08/25 16:02: WBC 3.7 L, RBC 3.64 L, Hgb 13.1, Hct 39.4, MCV 108.2 H, MCH 36.0 H, MCHC 33.2, RDW Std Deviation 55.7 H, RDW Coeff of Martin 13.7, Plt Count 138 L, MPV 10.0, Immature Gran % (Auto) 0.500, Neut % (Auto) 72.3 H, Lymph % (Auto) 12.0 L, Dickinson % (Auto) 11.2 H, Eos % (Auto) 3.5, Baso % (Auto) 0.5, Absolute Neuts (auto) 2.7, Absolute Lymphs (auto) 0.45 L, Nucleated RBC % 0, PT 13.6, INR 1.0, APTT 24.9, Sodium 141, Potassium 4.1, Chloride 105, Carbon Dioxide 26.6, Anion Gap 10, BUN 8, Creatinine 0.93, Estim Creat Clear Calc 53.64, Est GFR (MDRD) Non-Af 66, BUN/Creatinine Ratio 9.1 L, Glucose 101 H, Calcium 9.4, T roponin T High Sens 19 H 03/08/25 18:08: Troponin T Hi Sens 2 Hr 40 H Rhythm Strip Rhythm Strip: Sinus Rhythm Rate: 62 Ectopy: None Imaging Radiology Impression Chest CTA 03/08/25 16:06 IMPRESSION: 1. No pulmonary embolism. 2. Right middle lobe atelectasis. Opacification of several right middle lobe subsegmental bronchi. 3. Mosaic attenuation of the bilateral lungs, nonspecific. Etiologies include underlying infection or small airway disease, among other etiologies. 4. Right lower lobe solid pulmonary nodule measuring up to 1.4 cm. Reading Location: [id number] Assessment & Plan Assessment/Plan (1) Acute dyspnea: PLAN: Plan The patient is a 69 y/o F w/ PMHx: Obesity, HTN, CKD stage II per GFR trending, Chronic thrombocytopenia, R sided breast cancer w/ metastatic disease to lung, bone status post right mastectomy and lumpectomy following with [facility] oncology Dr. 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 #1. Dyspnea, worse with exertion with indeterminate cardiac enzyme of unclear etiology with history of chemotherapy-induced cardiomyopathy: EKG with SR with no acute evidence of ischemia, troponin initial at 19 with repeat 2-hour 40, CTA chest with no PE, right middle lobe atelectasis, opacification several right middle lobe segment segmental bronchi, mosaic attenuation bilateral lungs nonspecific possibly infectious versus small airway disease, right lower lobe solid pulmonary nodule measuring up to 1.4 cm. Will admit to PCU, will obtain full respiratory viral panel to be cautious, ATC duoneb therapies, will have as needed albuterol, will maintain on telemetry monitoring, continue to cycle cardiac enzymes, repeat EKGs as needed, magnesium requested, BNP requested, procalcitonin requested, sputum requested, FLP in AM, TSH requested. Plan had been for repeat echocardiogram in mid March however given her current presentation will obtain echocardiogram at this time. If echocardiogram is not significant appearing may need to consider pursuing stress testing. ASA. #2. Malignant neoplasm lower inner quadrant right breast invasive ductal carcinoma with metastatic disease to the lung, liver with unfortunate associated chemotherapy-induced cardiomyopathy, neuropathy: Patient following with [facility] oncology, diagnosed with stage IIa invasive ductal carcinoma, noted recurrence while on anastrozole, treated currently with capecitabine at a reduced dose, plan for radiation to the right lung metastasis given reported progression, administered Herceptin per office note, holding capecitabine and to tucatinib until 2 to 3 weeks following radiation, noted intention for repeat echocardiogram in mid March following with natural sciences professor Dr. Galeano, maintained on metoprolol 25 mg twice daily as well as losartan 100 mg daily and Lyrica at 150 mg twice daily for neuropathy. As noted, given presentation plan for echocardiogram now. Mag and Phos requested. #3. Incidentally noted right lower lobe solid pulmonary nodule: CTA chest with a right lower lobe pulmonary nodule measuring up to 1.4 cm, unclear if this is the recent reported per her Oncologist lung met finding, will need follow-up for further evaluation outpatient. #4. Hypertension: Continue home regimen including metoprolol, losartan with alteration as needed, PRN hydralazine. #5. Chronic Kidney Disease Stage II per GFR trending: Admission BUN/Cr 8/0.93, GFR 66, baseline renal function primarily 0.9, repeat BMP in AM. #6. Chronic thrombocytopenia, unclear etiology: Admission platelet 138, previous to this 115-140, last however is remote from 08/16/2023 with platelets at that time 140, continue to trend CBC. #7. Obesity: Weight loss and lifestyle changes encouraged. #8. DVT prophylaxis: Lovenox. #9. CODE status: Patient YOLANDA is her and her daughter and living will is currently in place. Discussed CODE status at length including difference between FULL code, DNR-CCA and DNR-CC status. Following discussions about the differences in these status, requested DNR-CCA however following more lengthy discussions she is amenable to short-term intubation in reversible situations. Advanced Care Planning Face to Face Time: 16 minutes. Charges/Coding Visit Charges Inpatient E&M: 81939 Init Hosp L2 Procedures Hospitalists Procedures: 21215 Advncd Care Plan 30 Min
--- NOTE | 2025-03-08 20:58 | CASEMGMT ---
Care Management Face to Face with patient for initial transition planning/care coordination assessment in the ED.? This literary writer introduced self and role at [facility]. Patient alert and oriented. Patient willing to participate in assessment and is able to answer all questions appropriately.? Care providers, pharmacy, and demographics verified. Admitting Diagnosis: ??Shortness of Breath Other diagnosis history: ?breast cancer with mets to lung, HTN, CKD, thrombocytopenia PCP: ?Oli Specialists: ?Silvestre Galeano Preferred Pharmacy: [facility] Insurance: Medicare Prescription Benefit: ?yes Living Will/HPOA: ?yes, has both completed LNOK: ? Living Arrangements: ?lives with in a one story home, garage in basement 12 steps to enter home. Patient reports to being independent with ADLs and IADLs.? Transportation: ?patient drives DME: ?walker with seat, cane HHC: ?none SNF/Rehab: ?none Community Resources: ?none Behavioral Health History: ?none Patient goals: Patient wishes to discharge home, denies need for home health care at this time. Patient denies any further needs or concerns at this time. Disposition Plan: admission to acute; RN CM/SW to follow for discharge planning needs that may arise. Ruthie Ivey, HELICOPTER REPAIRER, LIFE SKILLS EDUCATOR
--- OUTSIDE RECORDS SUMMARY | 2025-03-08 21:02 | XMS RPT_ITS | CCD ---
Author Organization [facility] Inform ion Partnership [facility] Care Team Providers Care Neuro Ophthalmologist Name Role Phone Beth Fernandez Unavailable 0 m/uL [facility] WBC (Bld) [#/Vol] 4.07 10*3/uL 3.70 - 11. 00 k/uL [facility] Comprehensive metabolic 2000 panelon 02-23-2023 Albumin [Mass/Vol] 3.8 g/dL Low 3.9 - 4.9 g/dL [facility] ALP [Catalytic activity/Vol] 206 U/L High 34 - 123 U/L [facility] ALT [Catalytic activity/Vol] 20 U/L 7 - 38 U/L [facility] Anion gap [Moles/Vol] 9 mmol/L 9 - 18 mmol/L [facility] AST [Catalytic activity/Vol] 33 U/L 13 - 35 U/L [facility] Bilirubin [Mass/Vol] 0.5 mg/dL 0.2 - 1 .3 mg/dL [facility] Calcium [Mass/Vol] 10.1 mg/dL 8.5 - 10. 2 mg/dL [facility] Chloride [Moles/Vol] 105 mmol/L 97 - 10 5 mmol/L [facility] CO2 [Moles/Vol] 28 mmol/L 22 - 30 mmol/L [facility] Creatinine [Mass/Vol] 0.92 mg/dL 0.58 - 0.96 mg/dL [facility] Estimated Glomerular Filtration Rate 68 mL/min/1.73m >=60 mL/min/1.73m [facility] Glucose [Mass/Vol] 104 mg/dL High 74 - 99 mg/dL [facility] Potassium [Moles/Vol] 3.8 mmol/L 3.7 - 5.1 mmol/L [facility] Protein [Mass/Vol] 6.1 g/dL Low 6.3 - 8.0 g/dL [facility] Sodium [Moles/Vol] 142 mmol/L 136 - 144 mmol/L [facility] Urea nitrogen [Mass/Vol] 14 mg/dL 7 - 21 mg/dL [facility] Absolute lymphocyte countOrd ered By: Gurvinder Dill on 02-16-2023 Lymphocytes Auto (Unsp spec) [#/Vol] 1.14 10*3/uL 0.83-4.51 [facility] Basophil percentageOrdered B y: Gurvinder Dill on 02-16-2023 Basophils/100 WBC (Bld) 0.6 % 0-1 [facility] Eosinophils/100 WBC (Bld) 5.2 % 0-5 [facility] Neutrophils (Bld) [#/Vol] 2.7 10*3/uL 2.0-7.7 [facility] Neutrophils/100 WBC (Bld) 58.7 % 47-70 [facility] WBC (Bld) [#/Vol] 4.7 10*3/uL 4.4-11.0 [facility] Chloride [Moles/Vol] 109 mmol/L 98-107 [facility] Glucose [Mass/Vol] 90 mg/dL 74-106 [facility] Potassium [Moles/Vol] 4.4 mmol/L 3.5-5.1 [facility] Sodium [Moles/Vol] 143 mmol/L 136-145 [facility] Blood erythrocytes count (nu mber/volume)Ordered By: Gurvinder Dill on 02-16-2023 RBC (Bld) [#/Vol] 3.53 10*6/uL 4.2-5.4 [facility] Blood hemoglobin measurement (mass/volume)Ordered By: Gurvinder Dill on 02-16-2023 Hemoglobin (Bld) [Mass/Vol] 12.7 g/dL 12.0-15.0 [facility] Blood lymphocytes/100 leukoc ytesOrdered By: Gurvidner Dill on 02-16-2023 Lymphocytes/100 WBC (Bld) 24.5 % 19-41 [facility] Blood monocytes/100 leukocyt esOrdered By: Gurvinder Dill on 02-16-2023 Monocytes/100 WBC (Bld) 10.8 % 0-10 [facility] Blood platelet mean volumeOr dered By: Gurvinder Dill on 02-16-2023 Platelet mean volume (Bld) [Entitic vol] 10.5 fL 6.2-12.0 [facility] Determination of erythrocyte mean corpuscular volume (MCV)Ordered By: Gurvinder Dill on 02-16-2023 MCV (RBC) [Entitic vol] 111.3 fL 81-99 [facility] Hematocrit Auto (Bld) [Volum e fraction]Ordered By: Gurvinder Dill on 02-16-2023 Hematocrit (Bld) [Volume fraction] 39.3 % 37-47 [facility] Laboratory - Chemistry and C hemistry - challengeOrdered By: [facility]23 CO2 [Moles/Vol] 31.0 mmol/L 21.0-32.0 [facility] Natriuretic peptide B (Bld) [Mass/Vol] 92.8 pg/mL 0-100 [facility] Urea nitrogen/Creatinine [Mass ratio] 13.1 mg/mg 10-20 [facility] Laboratory - Hematology and Cell countsOrdered By: [facility] D[facility] on 02-16-2023 Erythrocyte distribution width (RBC) [Entitic vol] 59.1 fL 35.1-43.9 [facility] Erythrocyte distribution width (RBC) [Ratio] 14.3 % 11.6-14.6 [facility] Immature granulocytes/100 WBC (Bld) 0.200 % 0.0-0.9 [facility] Comment on above: IG% - Immature Granu locytes (promyelocytes, myelocytes and metamyelocytes) > 1% indicates that a LEFT SHIFT is Present. MCH (RBC) [Entitic mass] 36.0 pg 27.0-32.0 [facility] Nucleated RBC/100 WBC (Bld) [Ratio] 0 % 0-5 [facility] MCHC Auto (RBC) [Mass/Vol]Or dered By: Gurvinder Dill on 02-16-2023 MCHC (RBC) [Mass/Vol] 32.3 g/dL 32-36 [facility] No Panel InformationOrdered By: [facility] D[facility] on 02-16-2023 D-Dimer Quantitative (PE/DVT) 0.77 FEU/ug/m 0.27-0.49 [facility] Comment on above: D-Dimer ELEVATED (>0 .49): Additional studies and clinicalassessments are indicated to conclude diagnosis of:Deep Vein Thrombosis (DVT) or Pulmonary Embolism (PE)CRITICAL VALUE VERIFIED. CALLED TO ELVA GRIMM02/16/23 2130 Prasanna Bai.RESULTS READ BACK BY SAME . Estimated Creatinine Clearance Calc 44.03 ml/min [facility] Estimated GFR (MDRD) Amer 78 mL/min >60 [facility] Comment on above: GFR Calc Estimated GFR (MDRD) Non-Af Amer 65 mL/min >60 [facility] Comment on above: Non- GFR Calc Troponin I High Sensitivity 9 pg/mL 3.0-54.0 [facility] Comment on above: Please Note: New Lizbeth t Units and Gender Specific Reference Ranges. For more information see Policy Stat Procedure [place] High Sensitivity Troponin (TNIH) and attachments. Platelets bldOrdered By: Rem Fuentes on 02-16-2023 Platelets (Bld) [#/Vol] 115 10*3/uL 150-450 [facility] Serum or plasma calcium michelle urement (mass/volume)Ordered By: [facility] Fuentes on 02-16-2023 Calcium [Mass/Vol] 9.6 mg/dL 8.5-10.1 [facility] Serum or plasma creatinine m easurement (mass/volume)Ordered By: [facility] Fuentes on 02-16-2023 Creatinine [Mass/Vol] 0.91 mg/dL 0.55-1.02 [facility] Comment on above: The validity of the calculated GFR & GFRAA in patients over 70 years has not been determined. Clinical correlation is essential. Serum or plasma urea nitroge n measurement (mass/volume)Ordered By: [facility] Fu[facility] on 02-16-2023 Urea nitrogen [Mass/Vol] 12 mg/dL 7-18 [facility] Thin prep Papanicolaou smear with manual screeningOrdered By: Rem Fuentes on 02-16-2023 Thin prep Papanicolaou smear with manual screening 3 5-15 [facility] CBC W Auto Differential pane l (Bld)on 02-02-2023 Basophils (Bld) [#/Vol] 0.03 10*3/uL <0.11 k/uL [facility] Basophils/100 WBC (Bld) 0.9 % [facility] Differential cell count method Nom (Bld) Auto [facility] Eosinophils (Bld) [#/Vol] 0.24 10*3/uL <0.46 k/uL [facility] Eosinophils/100 WBC (Bld) 7.2 % [facility] Erythrocyte distribution width (RBC) [Ratio] 15.3 % High 11.5 - 15.0 % [facility] Hematocrit (Bld) [Volume fraction] 35.7 % Low 36.0 - 46.0 % [facility] Hemoglobin (Bld) [Mass/Vol] 11.9 g/dL 11.5 - 15.5 g/dL [facility] Immature granulocytes (Bld) [#/Vol] <0.10 k/uL [facility] Immature granulocytes/100 WBC (Bld) 0.3 % [facility] Lymphocytes (Bld) [#/Vol] 1.18 10*3/uL 1.00 - 4.00 k/uL [facility] Lymphocytes/100 WBC (Bld) 35.4 % [facility] MCH (RBC) [Entitic mass] 36.1 pg High 26.0 - 34.0 pg [facility] MCHC (RBC) [Mass/Vol] 33.3 g/dL 30.5 - 36.0 g/dL [facility] MCV (RBC) [Entitic vol] 108.2 fL High 80.0 - 100.0 fL [facility] Monocytes (Bld) [#/Vol] 0.46 10*3/uL <0.87 k/uL [facility] Monocytes/100 WBC (Bld) 13.8 % [facility] Neutrophils (Bld) [#/Vol] 1.41 10*3/uL Low 1.45 - 7.50 k/uL [facility] Neutrophils/100 WBC (Bld) 42.4 % [facility] Nucleated RBC (Bld) [#/Vol] <0.01 k/uL [facility] Nucleated RBC/100 WBC (Bld) [Ratio] 0.0 /100 WBC [facility] Platelet mean volume (Bld) [Entitic vol] 9.4 fL 9.0 - 12.7 fL [facility] Platelets (Bld) [#/Vol] 179 10*3/uL 150 - 400 k/uL [facility] RBC (Bld) [#/Vol] 3.30 10*6/uL Low 3.90 - 5.2 0 m/uL [facility] WBC (Bld) [#/Vol] 3.33 10*3/uL Low 3.70 - 11. 00 k/uL [facility] Comprehensive metabolic 2000 panelon 02-02-2023 Albumin [Mass/Vol] 3.7 g/dL Low 3.9 - 4.9 g/dL [facility] ALP [Catalytic activity/Vol] 196 U/L High 34 - 123 U/L [facility] ALT [Catalytic activity/Vol] 21 U/L 7 - 38 U/L [facility] Anion gap [Moles/Vol] 10 mmol/L 9 - 18 mmol/L [facility] AST [Catalytic activity/Vol] 37 U/L High 13 - 35 U/L [facility] Bilirubin [Mass/Vol] 0.3 mg/dL 0.2 - 1 .3 mg/dL [facility] Calcium [Mass/Vol] 9.6 mg/dL 8.5 - 10. 2 mg/dL [facility] Chloride [Moles/Vol] 109 mmol/L High 97 - 10 5 mmol/L [facility] CO2 [Moles/Vol] 23 mmol/L 22 - 30 mmol/L [facility] Creatinine [Mass/Vol] 0.97 mg/dL High 0.58 - 0.96 mg/dL [facility] Estimated Glomerular Filtration Rate 63 mL/min/1.73m >=60 mL/min/1.73m [facility] Glucose [Mass/Vol] 124 mg/dL High 74 - 99 mg/dL [facility] Potassium [Moles/Vol] 4.5 mmol/L 3.7 - 5.1 mmol/L [facility] Protein [Mass/Vol] 5.8 g/dL Low 6.3 - 8.0 g/dL [facility] Sodium [Moles/Vol] 142 mmol/L 136 - 144 mmol/L [facility] Urea nitrogen [Mass/Vol] 16 mg/dL 7 - 21 mg/dL [facility] No Panel Informationon 01-26 [facility] CBC W Auto Differential pane l (Bld)on 01-12-2023 Basophils (Bld) [#/Vol] 0.03 10*3/uL <0.11 k/uL [facility] Basophils/100 WBC (Bld) 0.9 % [facility] Differential cell count method Nom (Bld) Auto [facility] Eosinophils (Bld) [#/Vol] 0.28 10*3/uL <0.46 k/uL [facility] Eosinophils/100 WBC (Bld) 8.3 % [facility] Erythrocyte distribution width (RBC) [Ratio] 15.5 % High 11.5 - 15.0 % [facility] Hematocrit (Bld) [Volume fraction] 35.6 % Low 36.0 - 46.0 % [facility] Hemoglobin (Bld) [Mass/Vol] 11.9 g/dL 11.5 - 15.5 g/dL [facility] Immature granulocytes (Bld) [#/Vol] <0.10 k/uL [facility] Immature granulocytes/100 WBC (Bld) 0.3 % [facility] Lymphocytes (Bld) [#/Vol] 1.14 10*3/uL 1.00 - 4.00 k/uL [facility] Lymphocytes/100 WBC (Bld) 33.7 % [facility] MCH (RBC) [Entitic mass] 36.4 pg High 26.0 - 34.0 pg [facility] MCHC (RBC) [Mass/Vol] 33.4 g/dL 30.5 - 36.0 g/dL [facility] MCV (RBC) [Entitic vol] 108.9 fL High 80.0 - 100.0 fL [facility] Monocytes (Bld) [#/Vol] 0.43 10*3/uL <0.87 k/uL [facility] Monocytes/100 WBC (Bld) 12.7 % [facility] Neutrophils (Bld) [#/Vol] 1.49 10*3/uL 1.45 - 7.50 k/uL [facility] Neutrophils/100 WBC (Bld) 44.1 % [facility] Nucleated RBC (Bld) [#/Vol] <0.01 k/uL [facility] Nucleated RBC/100 WBC (Bld) [Ratio] 0.0 /100 WBC [facility] Platelet mean volume (Bld) [Entitic vol] 9.5 fL 9.0 - 12.7 fL [facility] Platelets (Bld) [#/Vol] 177 10*3/uL 150 - 400 k/uL [facility] RBC (Bld) [#/Vol] 3.27 10*6/uL Low 3.90 - 5.2 0 m/uL [facility] WBC (Bld) [#/Vol] 3.38 10*3/uL Low 3.70 - 11. 00 k/uL [facility] Comprehensive metabolic 2000 panelon 01-12-2023 Albumin [Mass/Vol] 3.5 g/dL Low 3.9 - 4.9 g/dL [facility] ALP [Catalytic activity/Vol] 178 U/L High 34 - 123 U/L [facility] ALT [Catalytic activity/Vol] 20 U/L 7 - 38 U/L [facility] Anion gap [Moles/Vol] 7 mmol/L Low 9 - 18 mmol/L [facility] AST [Catalytic activity/Vol] 34 U/L 13 - 35 U/L [facility] Bilirubin [Mass/Vol] 0.4 mg/dL 0.2 - 1 .3 mg/dL [facility] Calcium [Mass/Vol] 9.5 mg/dL 8.5 - 10. 2 mg/dL [facility] Chloride [Moles/Vol] 109 mmol/L High 97 - 10 5 mmol/L [facility] CO2 [Moles/Vol] 24 mmol/L 22 - 30 mmol/L [facility] Creatinine [Mass/Vol] 0.99 mg/dL High 0.58 - 0.96 mg/dL [facility] Estimated Glomerular Filtration Rate 62 mL/min/1.73m >=60 mL/min/1.73m [facility] Glucose [Mass/Vol] 119 mg/dL High 74 - 99 mg/dL [facility] Potassium [Moles/Vol] 4.3 mmol/L 3.7 - 5.1 mmol/L [facility] Protein [Mass/Vol] 5.9 g/dL Low 6.3 - 8.0 g/dL [facility] Sodium [Moles/Vol] 140 mmol/L 136 - 144 mmol/L [facility] Urea nitrogen [Mass/Vol] 14 mg/dL 7 - 21 mg/dL [facility] CBC W Auto Differential pane l (Bld)on 12-01-2022 Basophils (Bld) [#/Vol] 0.03 10*3/uL <0.11 k/uL [facility] Basophils/100 WBC (Bld) 0.7 % [facility] Differential cell count method Nom (Bld) Auto [facility] Eosinophils (Bld) [#/Vol] 0.28 10*3/uL <0.46 k/uL [facility] Eosinophils/100 WBC (Bld) 6.8 % [facility] Erythrocyte distribution width (RBC) [Ratio] 15.2 % High 11.5 - 15.0 % [facility] Hematocrit (Bld) [Volume fraction] 35.2 % Low 36.0 - 46.0 % [facility] Hemoglobin (Bld) [Mass/Vol] 11.9 g/dL 11.5 - 15.5 g/dL [facility] Immature granulocytes (Bld) [#/Vol] <0.10 k/uL [facility] Immature granulocytes/100 WBC (Bld) 0.0 % [facility] Lymphocytes (Bld) [#/Vol] 1.30 10*3/uL 1.00 - 4.00 k/uL [facility] Lymphocytes/100 WBC (Bld) 31.6 % [facility] MCH (RBC) [Entitic mass] 36.7 pg High 26.0 - 34.0 pg [facility] MCHC (RBC) [Mass/Vol] 33.8 g/dL 30.5 - 36.0 g/dL [facility] MCV (RBC) [Entitic vol] 108.6 fL High 80.0 - 100.0 fL [facility] Monocytes (Bld) [#/Vol] 0.43 10*3/uL <0.87 k/uL [facility] Monocytes/100 WBC (Bld) 10.4 % [facility] Neutrophils (Bld) [#/Vol] 2.08 10*3/uL 1.45 - 7.50 k/uL [facility] Neutrophils/100 WBC (Bld) 50.5 % [facility] Nucleated RBC (Bld) [#/Vol] <0.01 k/uL [facility] Nucleated RBC/100 WBC (Bld) [Ratio] 0.0 /100 WBC [facility] Platelet mean volume (Bld) [Entitic vol] 9.2 fL 9.0 - 12.7 fL [facility] Platelets (Bld) [#/Vol] 147 10*3/uL Low 150 - 400 k/uL [facility] RBC (Bld) [#/Vol] 3.24 10*6/uL Low 3.90 - 5.2 0 m/uL [facility] WBC (Bld) [#/Vol] 4.12 10*3/uL 3.70 - 11. 00 k/uL [facility] Comprehensive metabolic 2000 panelon 12-01-2022 Albumin [Mass/Vol] 3.8 g/dL Low 3.9 - 4.9 g/dL [facility] ALP [Catalytic activity/Vol] 202 U/L High 34 - 123 U/L [facility] ALT [Catalytic activity/Vol] 20 U/L 7 - 38 U/L [facility] Anion gap [Moles/Vol] 7 mmol/L Low 9 - 18 mmol/L [facility] AST [Catalytic activity/Vol] 33 U/L 13 - 35 U/L [facility] Bilirubin [Mass/Vol] 0.3 mg/dL 0.2 - 1 .3 mg/dL [facility] Calcium [Mass/Vol] 9.8 mg/dL 8.5 - 10. 2 mg/dL [facility] Chloride [Moles/Vol] 107 mmol/L High 97 - 10 5 mmol/L [facility] CO2 [Moles/Vol] 27 mmol/L 22 - 30 mmol/L [facility] Creatinine [Mass/Vol] 1.02 mg/dL High 0.58 - 0.96 mg/dL [facility] Estimated Glomerular Filtration Rate 60 mL/min/1.73m >=60 mL/min/1.73m [facility] Glucose [Mass/Vol] 134 mg/dL High 74 - 99 mg/dL [facility] Potassium [Moles/Vol] 3.9 mmol/L 3.7 - 5.1 mmol/L [facility] Protein [Mass/Vol] 5.9 g/dL Low 6.3 - 8.0 g/dL [facility] Sodium [Moles/Vol] 141 mmol/L 136 - 144 mmol/L [facility] Urea nitrogen [Mass/Vol] 15 mg/dL 7 - 21 mg/dL [facility] CBC W Auto Differential pane l (Bld)on 11-10-2022 Basophils (Bld) [#/Vol] 0.03 10*3/uL <0.11 k/uL [facility] Basophils/100 WBC (Bld) 0.8 % [facility] Differential cell count method Nom (Bld) Auto [facility] Eosinophils (Bld) [#/Vol] 0.28 10*3/uL <0.46 k/uL [facility] Eosinophils/100 WBC (Bld) 7.6 % [facility] Erythrocyte distribution width (RBC) [Ratio] 15.4 % High 11.5 - 15.0 % [facility] Hematocrit (Bld) [Volume fraction] 36.8 % 36.0 - 46.0 % [facility] Hemoglobin (Bld) [Mass/Vol] 12.4 g/dL 11.5 - 15.5 g/dL [facility] Immature granulocytes (Bld) [#/Vol] <0.10 k/uL [facility] Immature granulocytes/100 WBC (Bld) 0.0 % [facility] Lymphocytes (Bld) [#/Vol] 1.17 10*3/uL 1.00 - 4.00 k/uL [facility] Lymphocytes/100 WBC (Bld) 31.9 % [facility] MCH (RBC) [Entitic mass] 36.5 pg High 26.0 - 34.0 pg [facility] MCHC (RBC) [Mass/Vol] 33.7 g/dL 30.5 - 36.0 g/dL [facility] MCV (RBC) [Entitic vol] 108.2 fL High 80.0 - 100.0 fL [facility] Monocytes (Bld) [#/Vol] 0.46 10*3/uL <0.87 k/uL [facility] Monocytes/100 WBC (Bld) 12.5 % [facility] Neutrophils (Bld) [#/Vol] 1.73 10*3/uL 1.45 - 7.50 k/uL [facility] Neutrophils/100 WBC (Bld) 47.2 % [facility] Nucleated RBC (Bld) [#/Vol] <0.01 k/uL [facility] Nucleated RBC/100 WBC (Bld) [Ratio] 0.0 /100 WBC [facility] Platelet mean volume (Bld) [Entitic vol] 9.5 fL 9.0 - 12.7 fL [facility] Platelets (Bld) [#/Vol] 187 10*3/uL 150 - 400 k/uL [facility] RBC (Bld) [#/Vol] 3.40 10*6/uL Low 3.90 - 5.2 0 m/uL [facility] WBC (Bld) [#/Vol] 3.67 10*3/uL Low 3.70 - 11. 00 k/uL [facility] Comprehensive metabolic 2000 panelon 11-10-2022 Albumin [Mass/Vol] 3.8 g/dL Low 3.9 - 4.9 g/dL [facility] ALP [Catalytic activity/Vol] 183 U/L High 34 - 123 U/L [facility] ALT [Catalytic activity/Vol] 20 U/L 7 - 38 U/L [facility] Anion gap [Moles/Vol] 7 mmol/L Low 9 - 18 mmol/L [facility] AST [Catalytic activity/Vol] 33 U/L 13 - 35 U/L [facility] Bilirubin [Mass/Vol] 0.5 mg/dL 0.2 - 1 .3 mg/dL [facility] Calcium [Mass/Vol] 9.6 mg/dL 8.5 - 10. 2 mg/dL [facility] Chloride [Moles/Vol] 106 mmol/L High 97 - 10 5 mmol/L [facility] CO2 [Moles/Vol] 29 mmol/L 22 - 30 mmol/L [facility] Creatinine [Mass/Vol] 1.01 mg/dL High 0.58 - 0.96 mg/dL [facility] Estimated Glomerular Filtration Rate 60 mL/min/1.73m >=60 mL/min/1.73m [facility] Glucose [Mass/Vol] 114 mg/dL High 74 - 99 mg/dL [facility] Potassium [Moles/Vol] 4.4 mmol/L 3.7 - 5.1 mmol/L [facility] Protein [Mass/Vol] 6.0 g/dL Low 6.3 - 8.0 g/dL [facility] Sodium [Moles/Vol] 142 mmol/L 136 - 144 mmol/L [facility] Urea nitrogen [Mass/Vol] 12 mg/dL 7 - 21 mg/dL [facility] No Panel Informationon 11-10 [facility] CBC W Auto Differential pane l (Bld)on 10-18-2022 Basophils (Bld) [#/Vol] <0.11 k/uL [facility] Basophils/100 WBC (Bld) 0.5 % [facility] Differential cell count method Nom (Bld) Auto [facility] Eosinophils (Bld) [#/Vol] 0.25 10*3/uL <0.46 k/uL [facility] Eosinophils/100 WBC (Bld) 6.5 % [facility] Erythrocyte distribution width (RBC) [Ratio] 15.2 % High 11.5 - 15.0 % [facility] Hematocrit (Bld) [Volume fraction] 36.4 % 36.0 - 46.0 % [facility] Hemoglobin (Bld) [Mass/Vol] 12.6 g/dL 11.5 - 15.5 g/dL [facility] Immature granulocytes (Bld) [#/Vol] <0.10 k/uL [facility] Immature granulocytes/100 WBC (Bld) 0.3 % [facility] Lymphocytes (Bld) [#/Vol] 1.15 10*3/uL 1.00 - 4.00 k/uL [facility] Lymphocytes/100 WBC (Bld) 29.8 % [facility] MCH (RBC) [Entitic mass] 36.8 pg High 26.0 - 34.0 pg [facility] MCHC (RBC) [Mass/Vol] 34.6 g/dL 30.5 - 36.0 g/dL [facility] MCV (RBC) [Entitic vol] 106.4 fL High 80.0 - 100.0 fL [facility] Monocytes (Bld) [#/Vol] 0.41 10*3/uL <0.87 k/uL [facility] Monocytes/100 WBC (Bld) 10.6 % [facility] Neutrophils (Bld) [#/Vol] 2.02 10*3/uL 1.45 - 7.50 k/uL [facility] Neutrophils/100 WBC (Bld) 52.3 % [facility] Nucleated RBC (Bld) [#/Vol] <0.01 k/uL [facility] Nucleated RBC/100 WBC (Bld) [Ratio] 0.0 /100 WBC [facility] Platelet mean volume (Bld) [Entitic vol] 9.3 fL 9.0 - 12.7 fL [facility] Platelets (Bld) [#/Vol] 173 10*3/uL 150 - 400 k/uL [facility] RBC (Bld) [#/Vol] 3.42 10*6/uL Low 3.90 - 5.2 0 m/uL [facility] WBC (Bld) [#/Vol] 3.86 10*3/uL 3.70 - 11. 00 k/uL [facility] Comprehensive metabolic 2000 panelon 10-18-2022 Albumin [Mass/Vol] 3.9 g/dL 3.9 - 4.9 g/dL [facility] ALP [Catalytic activity/Vol] 204 U/L High 34 - 123 U/L [facility] ALT [Catalytic activity/Vol] 25 U/L 7 - 38 U/L [facility] Anion gap [Moles/Vol] 7 mmol/L Low 9 - 18 mmol/L [facility] AST [Catalytic activity/Vol] 39 U/L High 13 - 35 U/L [facility] Bilirubin [Mass/Vol] 0.5 mg/dL 0.2 - 1 .3 mg/dL [facility] Calcium [Mass/Vol] 9.8 mg/dL 8.5 - 10. 2 mg/dL [facility] Chloride [Moles/Vol] 105 mmol/L 97 - 10 5 mmol/L [facility] CO2 [Moles/Vol] 27 mmol/L 22 - 30 mmol/L [facility] Creatinine [Mass/Vol] 0.90 mg/dL 0.58 - 0.96 mg/dL [facility] Estimated Glomerular Filtration Rate 69 mL/min/1.73m >=60 mL/min/1.73m [facility] Glucose [Mass/Vol] 99 mg/dL 74 - 99 mg/dL [facility] Potassium [Moles/Vol] 4.0 mmol/L 3.7 - 5.1 mmol/L [facility] Protein [Mass/Vol] 6.1 g/dL Low 6.3 - 8.0 g/dL [facility] Sodium [Moles/Vol] 139 mmol/L 136 - 144 mmol/L [facility] Urea nitrogen [Mass/Vol] 13 mg/dL 7 - 21 mg/dL [facility] No Panel Informationon 10-18 [facility] CBC W Auto Differential pane l (Bld)on 09-30-2022 Basophils (Bld) [#/Vol] 0.03 10*3/uL <0.11 k/uL [facility] Basophils/100 WBC (Bld) 0.9 % [facility] Differential cell count method Nom (Bld) Auto [facility] Eosinophils (Bld) [#/Vol] 0.22 10*3/uL <0.46 k/uL [facility] Eosinophils/100 WBC (Bld) 6.7 % [facility] Erythrocyte distribution width (RBC) [Ratio] 15.6 % High 11.5 - 15.0 % [facility] Hematocrit (Bld) [Volume fraction] 36.9 % 36.0 - 46.0 % [facility] Hemoglobin (Bld) [Mass/Vol] 12.5 g/dL 11.5 - 15.5 g/dL [facility] Immature granulocytes (Bld) [#/Vol] <0.10 k/uL [facility] Immature granulocytes/100 WBC (Bld) 0.0 % [facility] Lymphocytes (Bld) [#/Vol] 0.94 10*3/uL Low 1.00 - 4.00 k/uL [facility] Lymphocytes/100 WBC (Bld) 28.7 % [facility] MCH (RBC) [Entitic mass] 36.5 pg High 26.0 - 34.0 pg [facility] MCHC (RBC) [Mass/Vol] 33.9 g/dL 30.5 - 36.0 g/dL [facility] MCV (RBC) [Entitic vol] 107.9 fL High 80.0 - 100.0 fL [facility] Monocytes (Bld) [#/Vol] 0.47 10*3/uL <0.87 k/uL [facility] Monocytes/100 WBC (Bld) 14.4 % [facility] Neutrophils (Bld) [#/Vol] 1.61 10*3/uL 1.45 - 7.50 k/uL [facility] Neutrophils/100 WBC (Bld) 49.3 % [facility] Nucleated RBC (Bld) [#/Vol] <0.01 k/uL [facility] Nucleated RBC/100 WBC (Bld) [Ratio] 0.0 /100 WBC [facility] Platelet mean volume (Bld) [Entitic vol] 9.6 fL 9.0 - 12.7 fL [facility] Platelets (Bld) [#/Vol] 200 10*3/uL 150 - 400 k/uL [facility] RBC (Bld) [#/Vol] 3.42 10*6/uL Low 3.90 - 5.2 0 m/uL [facility] WBC (Bld) [#/Vol] 3.27 10*3/uL Low 3.70 - 11. 00 k/uL [facility] Comprehensive metabolic 2000 panelon 09-30-2022 Albumin [Mass/Vol] 3.9 g/dL 3.9 - 4.9 g/dL [facility] ALP [Catalytic activity/Vol] 185 U/L High 34 - 123 U/L [facility] ALT [Catalytic activity/Vol] 23 U/L 7 - 38 U/L [facility] Anion gap [Moles/Vol] 7 mmol/L Low 9 - 18 mmol/L [facility] AST [Catalytic activity/Vol] 40 U/L High 13 - 35 U/L [facility] Bilirubin [Mass/Vol] 0.5 mg/dL 0.2 - 1 .3 mg/dL [facility] Calcium [Mass/Vol] 9.4 mg/dL 8.5 - 10. 2 mg/dL [facility] Chloride [Moles/Vol] 106 mmol/L High 97 - 10 5 mmol/L [facility] CO2 [Moles/Vol] 27 mmol/L 22 - 30 mmol/L [facility] Creatinine [Mass/Vol] 1.02 mg/dL High 0.58 - 0.96 mg/dL [facility] Estimated Glomerular Filtration Rate 60 mL/min/1.73m >=60 mL/min/1.73m [facility] Glucose [Mass/Vol] 110 mg/dL High 74 - 99 mg/dL [facility] Potassium [Moles/Vol] 4.5 mmol/L 3.7 - 5.1 mmol/L [facility] Protein [Mass/Vol] 6.0 g/dL Low 6.3 - 8.0 g/dL [facility] Sodium [Moles/Vol] 140 mmol/L 136 - 144 mmol/L [facility] Urea nitrogen [Mass/Vol] 9 mg/dL 7 - 21 mg/dL [facility] MAXIM DIAG W OMI LEFTon 09-22 [facility] CBC W Auto Differential pane l (Bld)on 09-08-2022 Basophils (Bld) [#/Vol] 0.04 10*3/uL <0.11 k/uL [facility] Basophils/100 WBC (Bld) 1.0 % [facility] Differential cell count method Nom (Bld) Auto [facility] Eosinophils (Bld) [#/Vol] 0.28 10*3/uL <0.46 k/uL [facility] Eosinophils/100 WBC (Bld) 6.7 % [facility] Erythrocyte distribution width (RBC) [Ratio] 15.5 % High 11.5 - 15.0 % [facility] Hematocrit (Bld) [Volume fraction] 36.4 % 36.0 - 46.0 % [facility] Hemoglobin (Bld) [Mass/Vol] 12.2 g/dL 11.5 - 15.5 g/dL [facility] Immature granulocytes (Bld) [#/Vol] <0.10 k/uL [facility] Immature granulocytes/100 WBC (Bld) 0.2 % [facility] Lymphocytes (Bld) [#/Vol] 1.24 10*3/uL 1.00 - 4.00 k/uL [facility] Lymphocytes/100 WBC (Bld) 29.7 % [facility] MCH (RBC) [Entitic mass] 36.1 pg High 26.0 - 34.0 pg [facility] MCHC (RBC) [Mass/Vol] 33.5 g/dL 30.5 - 36.0 g/dL [facility] MCV (RBC) [Entitic vol] 107.7 fL High 80.0 - 100.0 fL [facility] Monocytes (Bld) [#/Vol] 0.54 10*3/uL <0.87 k/uL [facility] Monocytes/100 WBC (Bld) 12.9 % [facility] Neutrophils (Bld) [#/Vol] 2.07 10*3/uL 1.45 - 7.50 k/uL [facility] Neutrophils/100 WBC (Bld) 49.5 % [facility] Nucleated RBC (Bld) [#/Vol] <0.01 k/uL [facility] Nucleated RBC/100 WBC (Bld) [Ratio] 0.0 /100 WBC [facility] Platelet mean volume (Bld) [Entitic vol] 9.9 fL 9.0 - 12.7 fL [facility] Platelets (Bld) [#/Vol] 204 10*3/uL 150 - 400 k/uL [facility] RBC (Bld) [#/Vol] 3.38 10*6/uL Low 3.90 - 5.2 0 m/uL [facility] WBC (Bld) [#/Vol] 4.18 10*3/uL 3.70 - 11. 00 k/uL [facility] Comprehensive metabolic 2000 panelon 09-08-2022 Albumin [Mass/Vol] 3.8 g/dL Low 3.9 - 4.9 g/dL [facility] ALP [Catalytic activity/Vol] 176 U/L High 34 - 123 U/L [facility] ALT [Catalytic activity/Vol] 19 U/L 7 - 38 U/L [facility] Anion gap [Moles/Vol] 7 mmol/L Low 9 - 18 mmol/L [facility] AST [Catalytic activity/Vol] 33 U/L 13 - 35 U/L [facility] Bilirubin [Mass/Vol] 0.4 mg/dL 0.2 - 1 .3 mg/dL [facility] Calcium [Mass/Vol] 9.6 mg/dL 8.5 - 10. 2 mg/dL [facility] Chloride [Moles/Vol] 105 mmol/L 97 - 10 5 mmol/L [facility] CO2 [Moles/Vol] 26 mmol/L 22 - 30 mmol/L [facility] Creatinine [Mass/Vol] 0.87 mg/dL 0.58 - 0.96 mg/dL [facility] Estimated Glomerular Filtration Rate 73 mL/min/1.73m >=60 mL/min/1.73m [facility] Glucose [Mass/Vol] 106 mg/dL High 74 - 99 mg/dL [facility] Potassium [Moles/Vol] 4.1 mmol/L 3.7 - 5.1 mmol/L [facility] Protein [Mass/Vol] 5.8 g/dL Low 6.3 - 8.0 g/dL [facility] Sodium [Moles/Vol] 138 mmol/L 136 - 144 mmol/L [facility] Urea nitrogen [Mass/Vol] 11 mg/dL 7 - 21 mg/dL [facility] MAXIM SCREENING W TOMOon 08-23 [facility] No Panel Informationon 07-27 [facility] CBC W Auto Differential pane l (Bld)on 07-06-2022 Basophils (Bld) [#/Vol] 0.03 10*3/uL <0.11 k/uL [facility] Basophils/100 WBC (Bld) 0.7 % [facility] Differential cell count method Nom (Bld) Auto [facility] Eosinophils (Bld) [#/Vol] 0.24 10*3/uL <0.46 k/uL [facility] Eosinophils/100 WBC (Bld) 5.5 % [facility] Erythrocyte distribution width (RBC) [Ratio] 15.7 % High 11.5 - 15.0 % [facility] Hematocrit (Bld) [Volume fraction] 36.3 % 36.0 - 46.0 % [facility] Hemoglobin (Bld) [Mass/Vol] 12.3 g/dL 11.5 - 15.5 g/dL [facility] Immature granulocytes (Bld) [#/Vol] <0.10 k/uL [facility] Immature granulocytes/100 WBC (Bld) 0.2 % [facility] Lymphocytes (Bld) [#/Vol] 1.55 10*3/uL 1.00 - 4.00 k/uL [facility] Lymphocytes/100 WBC (Bld) 35.3 % [facility] MCH (RBC) [Entitic mass] 35.4 pg High 26.0 - 34.0 pg [facility] MCHC (RBC) [Mass/Vol] 33.9 g/dL 30.5 - 36.0 g/dL [facility] MCV (RBC) [Entitic vol] 104.6 fL High 80.0 - 100.0 fL [facility] Monocytes (Bld) [#/Vol] 0.45 10*3/uL <0.87 k/uL [facility] Monocytes/100 WBC (Bld) 10.3 % [facility] Neutrophils (Bld) [#/Vol] 2.11 10*3/uL 1.45 - 7.50 k/uL [facility] Neutrophils/100 WBC (Bld) 48.0 % [facility] Nucleated RBC (Bld) [#/Vol] <0.01 k/uL [facility] Nucleated RBC/100 WBC (Bld) [Ratio] 0.0 /100 WBC [facility] Platelet mean volume (Bld) [Entitic vol] 9.4 fL 9.0 - 12.7 fL [facility] Platelets (Bld) [#/Vol] 204 10*3/uL 150 - 400 k/uL [facility] RBC (Bld) [#/Vol] 3.47 10*6/uL Low 3.90 - 5.2 0 m/uL [facility] WBC (Bld) [#/Vol] 4.39 10*3/uL 3.70 - 11. 00 k/uL [facility] Comprehensive metabolic 2000 panelon 07-06-2022 Albumin [Mass/Vol] 3.7 g/dL Low 3.9 - 4.9 g/dL [facility] ALP [Catalytic activity/Vol] 185 U/L High 34 - 123 U/L [facility] ALT [Catalytic activity/Vol] 24 U/L 7 - 38 U/L [facility] Anion gap [Moles/Vol] 10 mmol/L 9 - 18 mmol/L [facility] AST [Catalytic activity/Vol] 38 U/L High 13 - 35 U/L [facility] Bilirubin [Mass/Vol] 0.4 mg/dL 0.2 - 1 .3 mg/dL [facility] Calcium [Mass/Vol] 9.3 mg/dL 8.5 - 10. 2 mg/dL [facility] Chloride [Moles/Vol] 104 mmol/L 97 - 10 5 mmol/L [facility] CO2 [Moles/Vol] 29 mmol/L 22 - 30 mmol/L [facility] Creatinine [Mass/Vol] 0.91 mg/dL 0.58 - 0.96 mg/dL [facility] Estimated Glomerular Filtration Rate 69 mL/min/1.73m >=60 mL/min/1.73m [facility] Glucose [Mass/Vol] 142 mg/dL High 74 - 99 mg/dL [facility] Potassium [Moles/Vol] 3.9 mmol/L 3.7 - 5.1 mmol/L [facility] Protein [Mass/Vol] 5.9 g/dL Low 6.3 - 8.0 g/dL [facility] Sodium [Moles/Vol] 143 mmol/L 136 - 144 mmol/L [facility] Urea nitrogen [Mass/Vol] 11 mg/dL 7 - 21 mg/dL [facility] CBC W Auto Differential pane l (Bld)on 06-15-2022 Basophils (Bld) [#/Vol] 0.03 10*3/uL <0.11 k/uL [facility] Basophils/100 WBC (Bld) 0.6 % [facility] Differential cell count method Nom (Bld) Auto [facility] Eosinophils (Bld) [#/Vol] 0.28 10*3/uL <0.46 k/uL [facility] Eosinophils/100 WBC (Bld) 5.3 % [facility] Erythrocyte distribution width (RBC) [Ratio] 15.1 % High 11.5 - 15.0 % [facility] Hematocrit (Bld) [Volume fraction] 37.3 % 36.0 - 46.0 % [facility] Hemoglobin (Bld) [Mass/Vol] 12.7 g/dL 11.5 - 15.5 g/dL [facility] Immature granulocytes (Bld) [#/Vol] <0.10 k/uL [facility] Immature granulocytes/100 WBC (Bld) 0.2 % [facility] Lymphocytes (Bld) [#/Vol] 1.34 10*3/uL 1.00 - 4.00 k/uL [facility] Lymphocytes/100 WBC (Bld) 25.4 % [facility] MCH (RBC) [Entitic mass] 35.8 pg High 26.0 - 34.0 pg [facility] MCHC (RBC) [Mass/Vol] 34.0 g/dL 30.5 - 36.0 g/dL [facility] MCV (RBC) [Entitic vol] 105.1 fL High 80.0 - 100.0 fL [facility] Monocytes (Bld) [#/Vol] 0.51 10*3/uL <0.87 k/uL [facility] Monocytes/100 WBC (Bld) 9.7 % [facility] Neutrophils (Bld) [#/Vol] 3.10 10*3/uL 1.45 - 7.50 k/uL [facility] Neutrophils/100 WBC (Bld) 58.8 % [facility] Nucleated RBC (Bld) [#/Vol] <0.01 k/uL [facility] Nucleated RBC/100 WBC (Bld) [Ratio] 0.0 /100 WBC [facility] Platelet mean volume (Bld) [Entitic vol] 9.7 fL 9.0 - 12.7 fL [facility] Platelets (Bld) [#/Vol] 204 10*3/uL 150 - 400 k/uL [facility] RBC (Bld) [#/Vol] 3.55 10*6/uL Low 3.90 - 5.2 0 m/uL [facility] WBC (Bld) [#/Vol] 5.27 10*3/uL 3.70 - 11. 00 k/uL [facility] Comprehensive metabolic 2000 panelon 06-15-2022 Albumin [Mass/Vol] 3.8 g/dL Low 3.9 - 4.9 g/dL [facility] ALP [Catalytic activity/Vol] 192 U/L High 34 - 123 U/L [facility] ALT [Catalytic activity/Vol] 20 U/L 7 - 38 U/L [facility] Anion gap [Moles/Vol] 8 mmol/L Low 9 - 18 mmol/L [facility] AST [Catalytic activity/Vol] 33 U/L 13 - 35 U/L [facility] Bilirubin [Mass/Vol] 0.3 mg/dL 0.2 - 1 .3 mg/dL [facility] Calcium [Mass/Vol] 10.0 mg/dL 8.5 - 10. 2 mg/dL [facility] Chloride [Moles/Vol] 106 mmol/L High 97 - 10 5 mmol/L [facility] CO2 [Moles/Vol] 27 mmol/L 22 - 30 mmol/L [facility] Creatinine [Mass/Vol] 0.99 mg/dL High 0.58 - 0.96 mg/dL [facility] Estimated Glomerular Filtration Rate 62 mL/min/1.73m >=60 mL/min/1.73m [facility] Glucose [Mass/Vol] 118 mg/dL High 74 - 99 mg/dL [facility] Potassium [Moles/Vol] 4.1 mmol/L 3.7 - 5.1 mmol/L [facility] Protein [Mass/Vol] 6.0 g/dL Low 6.3 - 8.0 g/dL [facility] Sodium [Moles/Vol] 141 mmol/L 136 - 144 mmol/L [facility] Urea nitrogen [Mass/Vol] 15 mg/dL 7 - 21 mg/dL [facility] CBC W Auto Differential pane l (Bld)on 05-25-2022 Basophils (Bld) [#/Vol] 0.03 10*3/uL <0.11 k/uL [facility] Basophils/100 WBC (Bld) 0.6 % [facility] Differential cell count method Nom (Bld) Auto [facility] Eosinophils (Bld) [#/Vol] 0.24 10*3/uL <0.46 k/uL [facility] Eosinophils/100 WBC (Bld) 5.1 % [facility] Erythrocyte distribution width (RBC) [Ratio] 14.9 % 11.5 - 15.0 % [facility] Hematocrit (Bld) [Volume fraction] 35.2 % Low 36.0 - 46.0 % [facility] Hemoglobin (Bld) [Mass/Vol] 12.0 g/dL 11.5 - 15.5 g/dL [facility] Immature granulocytes (Bld) [#/Vol] <0.10 k/uL [facility] Immature granulocytes/100 WBC (Bld) 0.2 % [facility] Lymphocytes (Bld) [#/Vol] 1.32 10*3/uL 1.00 - 4.00 k/uL [facility] Lymphocytes/100 WBC (Bld) 28.0 % [facility] MCH (RBC) [Entitic mass] 35.6 pg High 26.0 - 34.0 pg [facility] MCHC (RBC) [Mass/Vol] 34.1 g/dL 30.5 - 36.0 g/dL [facility] MCV (RBC) [Entitic vol] 104.5 fL High 80.0 - 100.0 fL [facility] Monocytes (Bld) [#/Vol] 0.53 10*3/uL <0.87 k/uL [facility] Monocytes/100 WBC (Bld) 11.2 % [facility] Neutrophils (Bld) [#/Vol] 2.59 10*3/uL 1.45 - 7.50 k/uL [facility] Neutrophils/100 WBC (Bld) 54.9 % [facility] Nucleated RBC (Bld) [#/Vol] <0.01 k/uL [facility] Nucleated RBC/100 WBC (Bld) [Ratio] 0.0 /100 WBC [facility] Platelet mean volume (Bld) [Entitic vol] 9.5 fL 9.0 - 12.7 fL [facility] Platelets (Bld) [#/Vol] 178 10*3/uL 150 - 400 k/uL [facility] RBC (Bld) [#/Vol] 3.37 10*6/uL Low 3.90 - 5.2 0 m/uL [facility] WBC (Bld) [#/Vol] 4.72 10*3/uL 3.70 - 11. 00 k/uL [facility] Comprehensive metabolic 2000 panelon 05-25-2022 Albumin [Mass/Vol] 3.8 g/dL Low 3.9 - 4.9 g/dL [facility] ALP [Catalytic activity/Vol] 166 U/L High 34 - 123 U/L [facility] ALT [Catalytic activity/Vol] 21 U/L 7 - 38 U/L [facility] Anion gap [Moles/Vol] 6 mmol/L Low 9 - 18 mmol/L [facility] AST [Catalytic activity/Vol] 33 U/L 13 - 35 U/L [facility] Bilirubin [Mass/Vol] 0.3 mg/dL 0.2 - 1 .3 mg/dL [facility] Calcium [Mass/Vol] 9.5 mg/dL 8.5 - 10. 2 mg/dL [facility] Chloride [Moles/Vol] 107 mmol/L High 97 - 10 5 mmol/L [facility] CO2 [Moles/Vol] 29 mmol/L 22 - 30 mmol/L [facility] Creatinine [Mass/Vol] 0.93 mg/dL 0.58 - 0.96 mg/dL [facility] Estimated Glomerular Filtration Rate 67 mL/min/1.73m >=60 mL/min/1.73m [facility] Glucose [Mass/Vol] 116 mg/dL High 74 - 99 mg/dL [facility] Potassium [Moles/Vol] 3.6 mmol/L Low 3.7 - 5.1 mmol/L [facility] Protein [Mass/Vol] 5.7 g/dL Low 6.3 - 8.0 g/dL [facility] Sodium [Moles/Vol] 142 mmol/L 136 - 144 mmol/L [facility] Urea nitrogen [Mass/Vol] 16 mg/dL 7 - 21 mg/dL [facility] CBC W Auto Differential pane l (Bld)on 05-06-2022 Basophils (Bld) [#/Vol] 0.04 10*3/uL <0.11 k/uL [facility] Basophils/100 WBC (Bld) 0.9 % [facility] Differential cell count method Nom (Bld) Auto [facility] Eosinophils (Bld) [#/Vol] 0.25 10*3/uL <0.46 k/uL [facility] Eosinophils/100 WBC (Bld) 5.6 % [facility] Erythrocyte distribution width (RBC) [Ratio] 14.8 % 11.5 - 15.0 % [facility] Hematocrit (Bld) [Volume fraction] 37.7 % 36.0 - 46.0 % [facility] Hemoglobin (Bld) [Mass/Vol] 13.2 g/dL 11.5 - 15.5 g/dL [facility] Immature granulocytes (Bld) [#/Vol] <0.10 k/uL [facility] Immature granulocytes/100 WBC (Bld) 0.4 % [facility] Lymphocytes (Bld) [#/Vol] 1.33 10*3/uL 1.00 - 4.00 k/uL [facility] Lymphocytes/100 WBC (Bld) 29.6 % [facility] MCH (RBC) [Entitic mass] 36.9 pg High 26.0 - 34.0 pg [facility] MCHC (RBC) [Mass/Vol] 35.0 g/dL 30.5 - 36.0 g/dL [facility] MCV (RBC) [Entitic vol] 105.3 fL High 80.0 - 100.0 fL [facility] Monocytes (Bld) [#/Vol] 0.43 10*3/uL <0.87 k/uL [facility] Monocytes/100 WBC (Bld) 9.6 % [facility] Neutrophils (Bld) [#/Vol] 2.43 10*3/uL 1.45 - 7.50 k/uL [facility] Neutrophils/100 WBC (Bld) 53.9 % [facility] Nucleated RBC (Bld) [#/Vol] <0.01 k/uL [facility] Nucleated RBC/100 WBC (Bld) [Ratio] 0.0 /100 WBC [facility] Platelet mean volume (Bld) [Entitic vol] 9.2 fL 9.0 - 12.7 fL [facility] Platelets (Bld) [#/Vol] 221 10*3/uL 150 - 400 k/uL [facility] RBC (Bld) [#/Vol] 3.58 10*6/uL Low 3.90 - 5.2 0 m/uL [facility] WBC (Bld) [#/Vol] 4.50 10*3/uL 3.70 - 11. 00 k/uL [facility] Comprehensive metabolic 2000 panelon 05-06-2022 Albumin [Mass/Vol] 3.9 g/dL 3.9 - 4.9 g/dL [facility] ALP [Catalytic activity/Vol] 183 U/L High 34 - 123 U/L [facility] ALT [Catalytic activity/Vol] 18 U/L 7 - 38 U/L [facility] Anion gap [Moles/Vol] 6 mmol/L Low 9 - 18 mmol/L [facility] AST [Catalytic activity/Vol] 33 U/L 13 - 35 U/L [facility] Bilirubin [Mass/Vol] 0.4 mg/dL 0.2 - 1 .3 mg/dL [facility] Calcium [Mass/Vol] 9.3 mg/dL 8.5 - 10. 2 mg/dL [facility] Chloride [Moles/Vol] 106 mmol/L High 97 - 10 5 mmol/L [facility] CO2 [Moles/Vol] 28 mmol/L 22 - 30 mmol/L [facility] Creatinine [Mass/Vol] 0.87 mg/dL 0.58 - 0.96 mg/dL [facility] Estimated Glomerular Filtration Rate 73 mL/min/1.73m >=60 mL/min/1.73m [facility] Glucose [Mass/Vol] 112 mg/dL High 74 - 99 mg/dL [facility] Potassium [Moles/Vol] 3.6 mmol/L Low 3.7 - 5.1 mmol/L [facility] Protein [Mass/Vol] 6.0 g/dL Low 6.3 - 8.0 g/dL [facility] Sodium [Moles/Vol] 140 mmol/L 136 - 144 mmol/L [facility] Urea nitrogen [Mass/Vol] 14 mg/dL 7 - 21 mg/dL [facility] No Panel Informationon 04-26 [facility] CBC W Auto Differential pane l (Bld)on 04-14-2022 Basophils (Bld) [#/Vol] 0.05 10*3/uL <0.11 k/uL [facility] Basophils/100 WBC (Bld) 1.1 % [facility] Differential cell count method Nom (Bld) Auto [facility] Eosinophils (Bld) [#/Vol] 0.25 10*3/uL <0.46 k/uL [facility] Eosinophils/100 WBC (Bld) 5.4 % [facility] Erythrocyte distribution width (RBC) [Ratio] 14.8 % 11.5 - 15.0 % [facility] Hematocrit (Bld) [Volume fraction] 37.0 % 36.0 - 46.0 % [facility] Hemoglobin (Bld) [Mass/Vol] 12.3 g/dL 11.5 - 15.5 g/dL [facility] Immature granulocytes (Bld) [#/Vol] <0.10 k/uL [facility] Immature granulocytes/100 WBC (Bld) 0.2 % [facility] Lymphocytes (Bld) [#/Vol] 1.47 10*3/uL 1.00 - 4.00 k/uL [facility] Lymphocytes/100 WBC (Bld) 31.7 % [facility] MCH (RBC) [Entitic mass] 35.4 pg High 26.0 - 34.0 pg [facility] MCHC (RBC) [Mass/Vol] 33.2 g/dL 30.5 - 36.0 g/dL [facility] MCV (RBC) [Entitic vol] 106.6 fL High 80.0 - 100.0 fL [facility] Monocytes (Bld) [#/Vol] 0.52 10*3/uL <0.87 k/uL [facility] Monocytes/100 WBC (Bld) 11.2 % [facility] Neutrophils (Bld) [#/Vol] 2.33 10*3/uL 1.45 - 7.50 k/uL [facility] Neutrophils/100 WBC (Bld) 50.4 % [facility] Nucleated RBC (Bld) [#/Vol] <0.01 k/uL [facility] Nucleated RBC/100 WBC (Bld) [Ratio] 0.0 /100 WBC [facility] Platelet mean volume (Bld) [Entitic vol] 9.7 fL 9.0 - 12.7 fL [facility] Platelets (Bld) [#/Vol] 172 10*3/uL 150 - 400 k/uL [facility] RBC (Bld) [#/Vol] 3.47 10*6/uL Low 3.90 - 5.2 0 m/uL [facility] WBC (Bld) [#/Vol] 4.63 10*3/uL 3.70 - 11. 00 k/uL [facility] Comprehensive metabolic 2000 panelon 04-14-2022 Albumin [Mass/Vol] 3.7 g/dL Low 3.9 - 4.9 g/dL [facility] ALP [Catalytic activity/Vol] 168 U/L High 34 - 123 U/L [facility] ALT [Catalytic activity/Vol] 18 U/L 7 - 38 U/L [facility] Anion gap [Moles/Vol] 8 mmol/L Low 9 - 18 mmol/L [facility] AST [Catalytic activity/Vol] 34 U/L 13 - 35 U/L [facility] Bilirubin [Mass/Vol] 0.3 mg/dL 0.2 - 1 .3 mg/dL [facility] Calcium [Mass/Vol] 9.1 mg/dL 8.5 - 10. 2 mg/dL [facility] Chloride [Moles/Vol] 107 mmol/L High 97 - 10 5 mmol/L [facility] CO2 [Moles/Vol] 27 mmol/L 22 - 30 mmol/L [facility] Creatinine [Mass/Vol] 0.88 mg/dL 0.58 - 0.96 mg/dL [facility] Estimated Glomerular Filtration Rate 72 mL/min/1.73m >=60 mL/min/1.73m [facility] Glucose [Mass/Vol] 99 mg/dL 74 - 99 mg/dL [facility] Potassium [Moles/Vol] 3.7 mmol/L 3.7 - 5.1 mmol/L [facility] Protein [Mass/Vol] 5.8 g/dL Low 6.3 - 8.0 g/dL [facility] Sodium [Moles/Vol] 142 mmol/L 136 - 144 mmol/L [facility] Urea nitrogen [Mass/Vol] 13 mg/dL 7 - 21 mg/dL [facility] CBC W Auto Differential pane l (Bld)on 03-18-2022 Abs Immature Gran <0.10 k/uL [facility] [place] Basophils (Bld) [#/Vol] 0.03 10*3/uL <0.11 k/uL [facility] Basophils/100 WBC (Bld) 0.7 % [facility] Differential cell count method Nom (Bld) Auto [facility] Eosinophils (Bld) [#/Vol] 0.24 10*3/uL <0.46 k/uL [facility] Eosinophils/100 WBC (Bld) 5.6 % [facility] Erythrocyte distribution width (RBC) [Ratio] 15.2 % High 11.5 - 15.0 % [facility] Hematocrit (Bld) [Volume fraction] 36.3 % 36.0 - 46.0 % [facility] Hemoglobin (Bld) [Mass/Vol] 12.1 g/dL 11.5 - 15.5 g/dL [facility] Immature Gran % 0.2 % [facility] Lymphocytes (Bld) [#/Vol] 1.26 10*3/uL 1.00 - 4.00 k/uL [facility] Lymphocytes/100 WBC (Bld) 29.4 % [facility] MCH (RBC) [Entitic mass] 35.6 pg High 26.0 - 34.0 pg [facility] MCHC (RBC) [Mass/Vol] 33.3 g/dL 30.5 - 36.0 g/dL [facility] MCV (RBC) [Entitic vol] 106.8 fL High 80.0 - 100.0 fL [facility] Monocytes (Bld) [#/Vol] 0.53 10*3/uL <0.87 k/uL [facility] Monocytes/100 WBC (Bld) 12.4 % [facility] Neutrophils (Bld) [#/Vol] 2.22 10*3/uL 1.45 - 7.50 k/uL [facility] Neutrophils/100 WBC (Bld) 51.7 % [facility] Nucleated RBC (Bld) [#/Vol] <0.01 k/uL [facility] Nucleated RBC/100 WBC (Bld) [Ratio] 0.0 /100 WBC [facility] Platelet mean volume (Bld) [Entitic vol] 9.5 fL 9.0 - 12.7 fL [facility] Platelets (Bld) [#/Vol] 195 10*3/uL 150 - 400 k/uL [facility] RBC (Bld) [#/Vol] 3.40 10*6/uL Low 3.90 - 5.2 0 m/uL [facility] WBC (Bld) [#/Vol] 4.29 10*3/uL 3.70 - 11. 00 k/uL [facility] Comprehensive metabolic 2000 panelon 03-18-2022 Albumin [Mass/Vol] 3.8 g/dL Low 3.9 - 4.9 g/dL [facility] ALP [Catalytic activity/Vol] 188 U/L High 34 - 123 U/L [facility] ALT [Catalytic activity/Vol] 23 U/L 7 - 38 U/L [facility] Anion gap [Moles/Vol] 8 mmol/L Low 9 - 18 mmol/L [facility] AST [Catalytic activity/Vol] 38 U/L High 13 - 35 U/L [facility] Bilirubin [Mass/Vol] 0.3 mg/dL 0.2 - 1 .3 mg/dL [facility] Calcium [Mass/Vol] 9.2 mg/dL 8.5 - 10. 2 mg/dL [facility] Chloride [Moles/Vol] 107 mmol/L High 97 - 10 5 mmol/L [facility] CO2 [Moles/Vol] 26 mmol/L 22 - 30 mmol/L [facility] Creatinine [Mass/Vol] 0.85 mg/dL 0.58 - 0.96 mg/dL [facility] Estimated Glomerular Filtration Rate 75 mL/min/1.73m >=60 mL/min/1.73m [facility] Glucose [Mass/Vol] 96 mg/dL 74 - 99 mg/dL [facility] Potassium [Moles/Vol] 4.0 mmol/L 3.7 - 5.1 mmol/L [facility] Protein [Mass/Vol] 5.8 g/dL Low 6.3 - 8.0 g/dL [facility] Sodium [Moles/Vol] 141 mmol/L 136 - 144 mmol/L [facility] Urea nitrogen [Mass/Vol] 11 mg/dL 7 - 21 mg/dL [facility] CBC W Auto Differential pane l (Bld)on 02-24-2022 Abs Immature Gran <0.10 k/uL [facility] [place] Basophils (Bld) [#/Vol] <0.11 k/uL [facility] Basophils/100 WBC (Bld) 0.5 % [facility] Differential cell count method Nom (Bld) Auto [facility] Eosinophils (Bld) [#/Vol] 0.26 10*3/uL <0.46 k/uL [facility] Eosinophils/100 WBC (Bld) 6.1 % [facility] Erythrocyte distribution width (RBC) [Ratio] 15.1 % High 11.5 - 15.0 % [facility] Hematocrit (Bld) [Volume fraction] 35.4 % Low 36.0 - 46.0 % [facility] Hemoglobin (Bld) [Mass/Vol] 12.1 g/dL 11.5 - 15.5 g/dL [facility] Immature Gran % 0.0 % [facility] Lymphocytes (Bld) [#/Vol] 1.59 10*3/uL 1.00 - 4.00 k/uL [facility] Lymphocytes/100 WBC (Bld) 37.2 % [facility] MCH (RBC) [Entitic mass] 35.8 pg High 26.0 - 34.0 pg [facility] MCHC (RBC) [Mass/Vol] 34.2 g/dL 30.5 - 36.0 g/dL [facility] MCV (RBC) [Entitic vol] 104.7 fL High 80.0 - 100.0 fL [facility] Monocytes (Bld) [#/Vol] 0.47 10*3/uL <0.87 k/uL [facility] Monocytes/100 WBC (Bld) 11.0 % [facility] Neutrophils (Bld) [#/Vol] 1.93 10*3/uL 1.45 - 7.50 k/uL [facility] Neutrophils/100 WBC (Bld) 45.2 % [facility] Nucleated RBC (Bld) [#/Vol] <0.01 k/uL [facility] Nucleated RBC/100 WBC (Bld) [Ratio] 0.0 /100 WBC [facility] Platelet mean volume (Bld) [Entitic vol] 9.2 fL 9.0 - 12.7 fL [facility] Platelets (Bld) [#/Vol] 204 10*3/uL 150 - 400 k/uL [facility] RBC (Bld) [#/Vol] 3.38 10*6/uL Low 3.90 - 5.2 0 m/uL [facility] WBC (Bld) [#/Vol] 4.27 10*3/uL 3.70 - 11. 00 k/uL [facility] Comprehensive metabolic 2000 panelon 02-24-2022 Albumin [Mass/Vol] 3.7 g/dL Low 3.9 - 4.9 g/dL [facility] ALP [Catalytic activity/Vol] 177 U/L High 34 - 123 U/L [facility] ALT [Catalytic activity/Vol] 20 U/L 7 - 38 U/L [facility] Anion gap [Moles/Vol] 9 mmol/L 9 - 18 mmol/L [facility] AST [Catalytic activity/Vol] 32 U/L 13 - 35 U/L [facility] Bilirubin [Mass/Vol] 0.3 mg/dL 0.2 - 1 .3 mg/dL [facility] Calcium [Mass/Vol] 9.5 mg/dL 8.5 - 10. 2 mg/dL [facility] Chloride [Moles/Vol] 105 mmol/L 97 - 10 5 mmol/L [facility] CO2 [Moles/Vol] 27 mmol/L 22 - 30 mmol/L [facility] Creatinine [Mass/Vol] 0.91 mg/dL 0.58 - 0.96 mg/dL [facility] Estimated Glomerular Filtration Rate 69 mL/min/1.73m >=60 mL/min/1.73m [facility] Glucose [Mass/Vol] 102 mg/dL High 74 - 99 mg/dL [facility] Potassium [Moles/Vol] 3.7 mmol/L 3.7 - 5.1 mmol/L [facility] Protein [Mass/Vol] 5.8 g/dL Low 6.3 - 8.0 g/dL [facility] Sodium [Moles/Vol] 141 mmol/L 136 - 144 mmol/L [facility] Urea nitrogen [Mass/Vol] 10 mg/dL 7 - 21 mg/dL [facility] CBC W Auto Differential pane l (Bld)on 02-03-2022 Abs Immature Gran <0.10 k/uL [facility] [place] Basophils (Bld) [#/Vol] <0.11 k/uL [facility] Basophils/100 WBC (Bld) 0.5 % [facility] Differential cell count method Nom (Bld) Auto [facility] Eosinophils (Bld) [#/Vol] 0.26 10*3/uL <0.46 k/uL [facility] Eosinophils/100 WBC (Bld) 5.9 % [facility] Erythrocyte distribution width (RBC) [Ratio] 14.9 % 11.5 - 15.0 % [facility] Hematocrit (Bld) [Volume fraction] 35.8 % Low 36.0 - 46.0 % [facility] Hemoglobin (Bld) [Mass/Vol] 12.0 g/dL 11.5 - 15.5 g/dL [facility] Immature Gran % 0.2 % [facility] Lymphocytes (Bld) [#/Vol] 1.50 10*3/uL 1.00 - 4.00 k/uL [facility] Lymphocytes/100 WBC (Bld) 34.0 % [facility] MCH (RBC) [Entitic mass] 34.9 pg High 26.0 - 34.0 pg [facility] MCHC (RBC) [Mass/Vol] 33.5 g/dL 30.5 - 36.0 g/dL [facility] MCV (RBC) [Entitic vol] 104.1 fL High 80.0 - 100.0 fL [facility] Monocytes (Bld) [#/Vol] 0.51 10*3/uL <0.87 k/uL [facility] Monocytes/100 WBC (Bld) 11.6 % [facility] Neutrophils (Bld) [#/Vol] 2.11 10*3/uL 1.45 - 7.50 k/uL [facility] Neutrophils/100 WBC (Bld) 47.8 % [facility] Nucleated RBC (Bld) [#/Vol] <0.01 k/uL [facility] Nucleated RBC/100 WBC (Bld) [Ratio] 0.0 /100 WBC [facility] Platelet mean volume (Bld) [Entitic vol] 9.4 fL 9.0 - 12.7 fL [facility] Platelets (Bld) [#/Vol] 228 10*3/uL 150 - 400 k/uL [facility] RBC (Bld) [#/Vol] 3.44 10*6/uL Low 3.90 - 5.2 0 m/uL [facility] WBC (Bld) [#/Vol] 4.41 10*3/uL 3.70 - 11. 00 k/uL [facility] Comprehensive metabolic 2000 panelon 02-03-2022 Albumin [Mass/Vol] 3.7 g/dL Low 3.9 - 4.9 g/dL [facility] ALP [Catalytic activity/Vol] 186 U/L High 34 - 123 U/L [facility] ALT [Catalytic activity/Vol] 19 U/L 7 - 38 U/L [facility] Anion gap [Moles/Vol] 11 mmol/L 9 - 18 mmol/L [facility] AST [Catalytic activity/Vol] 32 U/L 13 - 35 U/L [facility] Bilirubin [Mass/Vol] 0.3 mg/dL 0.2 - 1 .3 mg/dL [facility] Calcium [Mass/Vol] 9.3 mg/dL 8.5 - 10. 2 mg/dL [facility] Chloride [Moles/Vol] 105 mmol/L 97 - 10 5 mmol/L [facility] CO2 [Moles/Vol] 24 mmol/L 22 - 30 mmol/L [facility] Creatinine [Mass/Vol] 0.93 mg/dL 0.58 - 0.96 mg/dL [facility] Estimated Glomerular Filtration Rate 67 mL/min/1.73m >=60 mL/min/1.73m [facility] Glucose [Mass/Vol] 100 mg/dL High 74 - 99 mg/dL [facility] Potassium [Moles/Vol] 3.8 mmol/L 3.7 - 5.1 mmol/L [facility] Protein [Mass/Vol] 6.0 g/dL Low 6.3 - 8.0 g/dL [facility] Sodium [Moles/Vol] 140 mmol/L 136 - 144 mmol/L [facility] Urea nitrogen [Mass/Vol] 12 mg/dL 7 - 21 mg/dL [facility] CBC W Auto Differential pane l (Bld)on 01-07-2022 Abs Immature Gran 0.03 k/uL <0.10 k/uL [facility] [place] Basophils (Bld) [#/Vol] 0.03 10*3/uL <0.11 k/uL [facility] Basophils/100 WBC (Bld) 0.3 % [facility] Differential cell count method Nom (Bld) Auto [facility] Eosinophils (Bld) [#/Vol] 0.20 10*3/uL <0.46 k/uL [facility] Eosinophils/100 WBC (Bld) 2.3 % [facility] Erythrocyte distribution width (RBC) [Ratio] 15.2 % High 11.5 - 15.0 % [facility] Hematocrit (Bld) [Volume fraction] 33.9 % Low 36.0 - 46.0 % [facility] Hemoglobin (Bld) [Mass/Vol] 11.6 g/dL 11.5 - 15.5 g/dL [facility] Immature Gran % 0.3 % [facility] Lymphocytes (Bld) [#/Vol] 1.17 10*3/uL 1.00 - 4.00 k/uL [facility] Lymphocytes/100 WBC (Bld) 13.4 % [facility] MCH (RBC) [Entitic mass] 35.3 pg High 26.0 - 34.0 pg [facility] MCHC (RBC) [Mass/Vol] 34.2 g/dL 30.5 - 36.0 g/dL [facility] MCV (RBC) [Entitic vol] 103.0 fL High 80.0 - 100.0 fL [facility] Monocytes (Bld) [#/Vol] 0.45 10*3/uL <0.87 k/uL [facility] Monocytes/100 WBC (Bld) 5.2 % [facility] Neutrophils (Bld) [#/Vol] 6.83 10*3/uL 1.45 - 7.50 k/uL [facility] Neutrophils/100 WBC (Bld) 78.5 % [facility] Nucleated RBC (Bld) [#/Vol] 10*3/uL <0.01 k/uL [facility] Nucleated RBC/100 WBC (Bld) [Ratio] 0.0 /100 WBC [facility] Platelet mean volume (Bld) [Entitic vol] 9.3 fL 9.0 - 12.7 fL [facility] Platelets (Bld) [#/Vol] 198 10*3/uL 150 - 400 k/uL [facility] RBC (Bld) [#/Vol] 3.29 10*6/uL Low 3.90 - 5.2 0 m/uL [facility] WBC (Bld) [#/Vol] 8.71 10*3/uL 3.70 - 11. 00 k/uL [facility] Comprehensive metabolic 2000 panelon 01-07-2022 Albumin [Mass/Vol] 3.7 g/dL Low 3.9 - 4.9 g/dL [facility] ALP [Catalytic activity/Vol] 182 U/L High 34 - 123 U/L [facility] ALT [Catalytic activity/Vol] 23 U/L 7 - 38 U/L [facility] Anion gap [Moles/Vol] 11 mmol/L 9 - 18 mmol/L [facility] AST [Catalytic activity/Vol] 35 U/L 13 - 35 U/L [facility] Bilirubin [Mass/Vol] 0.4 mg/dL 0.2 - 1 .3 mg/dL [facility] Calcium [Mass/Vol] 8.5 mg/dL 8.5 - 10. 2 mg/dL [facility] Chloride [Moles/Vol] 107 mmol/L High 97 - 10 5 mmol/L [facility] CO2 [Moles/Vol] 22 mmol/L 22 - 30 mmol/L [facility] Creatinine [Mass/Vol] 1.04 mg/dL High 0.58 - 0.96 mg/dL [facility] Estimated Glomerular Filtration Rate 59 mL/min/1.73m Low >=60 mL/min/1.73m [facility] Glucose [Mass/Vol] 99 mg/dL 74 - 99 mg/dL [facility] Potassium [Moles/Vol] 4.2 mmol/L 3.7 - 5.1 mmol/L [facility] Protein [Mass/Vol] 6.0 g/dL Low 6.3 - 8.0 g/dL [facility] Sodium [Moles/Vol] 140 mmol/L 136 - 144 mmol/L [facility] Urea nitrogen [Mass/Vol] 13 mg/dL 7 - 21 mg/dL [facility] CBC W Auto Differential pane l (Bld)on 12-23-2021 Abs Immature Gran <0.03 <0.10 k/uL [facility] [place] Basophils (Bld) [#/Vol] 0.04 10*3/uL <0.11 k/uL [facility] Basophils/100 WBC (Bld) 1.1 % [facility] Differential cell count method Nom (Bld) Auto [facility] Eosinophils (Bld) [#/Vol] 0.26 10*3/uL <0.46 k/uL [facility] Eosinophils/100 WBC (Bld) 6.9 % [facility] Erythrocyte distribution width (RBC) [Ratio] 16.2 % High 11.5 - 15.0 % [facility] Hematocrit (Bld) [Volume fraction] 34.1 % Low 36.0 - 46.0 % [facility] Hemoglobin (Bld) [Mass/Vol] 11.5 g/dL 11.5 - 15.5 g/dL [facility] Immature Gran % 0.3 % [facility] Lymphocytes (Bld) [#/Vol] 1.22 10*3/uL 1.00 - 4.00 k/uL [facility] Lymphocytes/100 WBC (Bld) 32.4 % [facility] MCH (RBC) [Entitic mass] 34.7 pg High 26.0 - 34.0 pg [facility] MCHC (RBC) [Mass/Vol] 33.7 g/dL 30.5 - 36.0 g/dL [facility] MCV (RBC) [Entitic vol] 103.0 fL High 80.0 - 100.0 fL [facility] Monocytes (Bld) [#/Vol] 0.43 10*3/uL <0.87 k/uL [facility] Monocytes/100 WBC (Bld) 11.4 % [facility] Neutrophils (Bld) [#/Vol] 1.80 10*3/uL 1.45 - 7.50 k/uL [facility] Neutrophils/100 WBC (Bld) 47.9 % [facility] Nucleated RBC (Bld) [#/Vol] 10*3/uL <0.01 k/uL [facility] Nucleated RBC/100 WBC (Bld) [Ratio] 0.0 /100 WBC [facility] Platelet mean volume (Bld) [Entitic vol] 9.5 fL 9.0 - 12.7 fL [facility] Platelets (Bld) [#/Vol] 209 10*3/uL 150 - 400 k/uL [facility] RBC (Bld) [#/Vol] 3.31 10*6/uL Low 3.90 - 5.2 0 m/uL [facility] WBC (Bld) [#/Vol] 3.76 10*3/uL 3.70 - 11. 00 k/uL [facility] Comprehensive metabolic 2000 panelon 12-23-2021 Albumin [Mass/Vol] 3.7 g/dL Low 3.9 - 4.9 g/dL [facility] ALP [Catalytic activity/Vol] 144 U/L High 34 - 123 U/L [facility] ALT [Catalytic activity/Vol] 20 U/L 7 - 38 U/L [facility] Anion gap [Moles/Vol] 9 mmol/L 9 - 18 mmol/L [facility] AST [Catalytic activity/Vol] 35 U/L 13 - 35 U/L [facility] Bilirubin [Mass/Vol] 0.2 mg/dL 0.2 - 1 .3 mg/dL [facility] Calcium [Mass/Vol] 9.5 mg/dL 8.5 - 10. 2 mg/dL [facility] Chloride [Moles/Vol] 108 mmol/L High 97 - 10 5 mmol/L [facility] CO2 [Moles/Vol] 25 mmol/L 22 - 30 mmol/L [facility] Creatinine [Mass/Vol] 0.93 mg/dL 0.58 - 0.96 mg/dL [facility] Estimated Glomerular Filtration Rate 67 mL/min/1.73m >=60 mL/min/1.73m [facility] Glucose [Mass/Vol] 91 mg/dL 74 - 99 mg/dL [facility] Potassium [Moles/Vol] 4.3 mmol/L 3.7 - 5.1 mmol/L [facility] Protein [Mass/Vol] 6.1 g/dL Low 6.3 - 8.0 g/dL [facility] Sodium [Moles/Vol] 142 mmol/L 136 - 144 mmol/L [facility] Urea nitrogen [Mass/Vol] 12 mg/dL 7 - 21 mg/dL [facility] CBC W Auto Differential pane l (Bld)on 12-02-2021 Abs Immature Gran <0.03 <0.10 k/uL [facility] [place] Basophils (Bld) [#/Vol] 0.03 10*3/uL <0.11 k/uL [facility] Basophils/100 WBC (Bld) 0.8 % [facility] Differential cell count method Nom (Bld) Auto [facility] Eosinophils (Bld) [#/Vol] 0.30 10*3/uL <0.46 k/uL [facility] Eosinophils/100 WBC (Bld) 7.5 % [facility] Erythrocyte distribution width (RBC) [Ratio] 17.7 % High 11.5 - 15.0 % [facility] Hematocrit (Bld) [Volume fraction] 35.5 % Low 36.0 - 46.0 % [facility] Hemoglobin (Bld) [Mass/Vol] 12.0 g/dL 11.5 - 15.5 g/dL [facility] Immature Gran % 0.0 % [facility] Lymphocytes (Bld) [#/Vol] 1.26 10*3/uL 1.00 - 4.00 k/uL [facility] Lymphocytes/100 WBC (Bld) 31.7 % [facility] MCH (RBC) [Entitic mass] 34.3 pg High 26.0 - 34.0 pg [facility] MCHC (RBC) [Mass/Vol] 33.8 g/dL 30.5 - 36.0 g/dL [facility] MCV (RBC) [Entitic vol] 101.4 fL High 80.0 - 100.0 fL [facility] Monocytes (Bld) [#/Vol] 0.44 10*3/uL <0.87 k/uL [facility] Monocytes/100 WBC (Bld) 11.1 % [facility] Neutrophils (Bld) [#/Vol] 1.95 10*3/uL 1.45 - 7.50 k/uL [facility] Neutrophils/100 WBC (Bld) 48.9 % [facility] Nucleated RBC (Bld) [#/Vol] 10*3/uL <0.01 k/uL [facility] Nucleated RBC/100 WBC (Bld) [Ratio] 0.0 /100 WBC [facility] Platelet mean volume (Bld) [Entitic vol] 9.5 fL 9.0 - 12.7 fL [facility] Platelets (Bld) [#/Vol] 223 10*3/uL 150 - 400 k/uL [facility] RBC (Bld) [#/Vol] 3.50 10*6/uL Low 3.90 - 5.2 0 m/uL [facility] WBC (Bld) [#/Vol] 3.98 10*3/uL 3.70 - 11. 00 k/uL [facility] Comprehensive metabolic 2000 panelon 12-02-2021 Albumin [Mass/Vol] 3.8 g/dL Low 3.9 - 4.9 g/dL [facility] ALP [Catalytic activity/Vol] 140 U/L High 34 - 123 U/L [facility] ALT [Catalytic activity/Vol] 21 U/L 7 - 38 U/L [facility] Anion gap [Moles/Vol] 10 mmol/L 9 - 18 mmol/L [facility] AST [Catalytic activity/Vol] 36 U/L High 13 - 35 U/L [facility] Bilirubin [Mass/Vol] 0.3 mg/dL 0.2 - 1 .3 mg/dL [facility] Calcium [Mass/Vol] 8.7 mg/dL 8.5 - 10. 2 mg/dL [facility] Chloride [Moles/Vol] 106 mmol/L High 97 - 10 5 mmol/L [facility] CO2 [Moles/Vol] 25 mmol/L 22 - 30 mmol/L [facility] Creatinine [Mass/Vol] 0.92 mg/dL 0.58 - 0.96 mg/dL [facility] Estimated Glomerular Filtration Rate 68 mL/min/1.73m >=60 mL/min/1.73m [facility] Glucose [Mass/Vol] 96 mg/dL 74 - 99 mg/dL [facility] Potassium [Moles/Vol] 3.8 mmol/L 3.7 - 5.1 mmol/L [facility] Protein [Mass/Vol] 6.0 g/dL Low 6.3 - 8.0 g/dL [facility] Sodium [Moles/Vol] 141 mmol/L 136 - 144 mmol/L [facility] Urea nitrogen [Mass/Vol] 10 mg/dL 7 - 21 mg/dL [facility] CBC W Auto Differential pane l (Bld)on 11-06-2021 Abs Immature Gran <0.03 <0.10 k/uL [facility] [place] Basophils (Bld) [#/Vol] 0.03 10*3/uL <0.11 k/uL [facility] Basophils/100 WBC (Bld) 0.6 % [facility] Differential cell count method Nom (Bld) Auto [facility] Eosinophils (Bld) [#/Vol] 0.35 10*3/uL <0.46 k/uL [facility] Eosinophils/100 WBC (Bld) 6.7 % [facility] Erythrocyte distribution width (RBC) [Ratio] 18.0 % High 11.5 - 15.0 % [facility] Hematocrit (Bld) [Volume fraction] 33.8 % Low 36.0 - 46.0 % [facility] Hemoglobin (Bld) [Mass/Vol] 11.1 g/dL Low 11.5 - 15.5 g/dL [facility] Immature Gran % 0.2 % [facility] Lymphocytes (Bld) [#/Vol] 1.55 10*3/uL 1.00 - 4.00 k/uL [facility] Lymphocytes/100 WBC (Bld) 29.8 % [facility] MCH (RBC) [Entitic mass] 32.1 pg 26.0 - 34.0 pg [facility] MCHC (RBC) [Mass/Vol] 32.8 g/dL 30.5 - 36.0 g/dL [facility] MCV (RBC) [Entitic vol] 97.7 fL 80.0 - 100.0 fL [facility] Monocytes (Bld) [#/Vol] 0.37 10*3/uL <0.87 k/uL [facility] Monocytes/100 WBC (Bld) 7.1 % [facility] Neutrophils (Bld) [#/Vol] 2.90 10*3/uL 1.45 - 7.50 k/uL [facility] Neutrophils/100 WBC (Bld) 55.6 % [facility] Nucleated RBC (Bld) [#/Vol] 10*3/uL <0.01 k/uL [facility] Nucleated RBC/100 WBC (Bld) [Ratio] 0.0 /100 WBC [facility] Platelet mean volume (Bld) [Entitic vol] 9.4 fL 9.0 - 12.7 fL [facility] Platelets (Bld) [#/Vol] 229 10*3/uL 150 - 400 k/uL [facility] RBC (Bld) [#/Vol] 3.46 10*6/uL Low 3.90 - 5.2 0 m/uL [facility] WBC (Bld) [#/Vol] 5.21 10*3/uL 3.70 - 11. 00 k/uL [facility] Comprehensive metabolic 2000 panelon 11-06-2021 Albumin [Mass/Vol] 3.7 g/dL Low 3.9 - 4.9 g/dL [facility] ALP [Catalytic activity/Vol] 144 U/L High 34 - 123 U/L [facility] ALT [Catalytic activity/Vol] 20 U/L 7 - 38 U/L [facility] Anion gap [Moles/Vol] 7 mmol/L Low 9 - 18 mmol/L [facility] AST [Catalytic activity/Vol] 35 U/L 13 - 35 U/L [facility] Bilirubin [Mass/Vol] 0.3 mg/dL 0.2 - 1 .3 mg/dL [facility] Calcium [Mass/Vol] 8.8 mg/dL 8.5 - 10. 2 mg/dL [facility] Chloride [Moles/Vol] 107 mmol/L High 97 - 10 5 mmol/L [facility] CO2 [Moles/Vol] 25 mmol/L 22 - 30 mmol/L [facility] Creatinine [Mass/Vol] 0.93 mg/dL 0.58 - 0.96 mg/dL [facility] Estimated Glomerular Filtration Rate 67 mL/min/1.73m >=60 mL/min/1.73m [facility] Glucose [Mass/Vol] 95 mg/dL 74 - 99 mg/dL [facility] [facility] Potassium [Moles/Vol] 4.0 mmol/L 3.7 - 5.1 mmol/L [facility] Protein [Mass/Vol] 6.2 g/dL Low 6.3 - 8.0 g/dL [facility] Sodium [Moles/Vol] 139 mmol/L 136 - 144 mmol/L [facility] Urea nitrogen [Mass/Vol] 9 mg/dL 7 - 21 mg/dL [facility] No Panel Informationon 11-06 [facility] CBC W Auto Differential pane l (Bld)on 10-21-2021 Abs Immature Gran <0.03 <0.10 k/uL [facility] [place] Basophils (Bld) [#/Vol] 0.04 10*3/uL <0.11 k/uL [facility] Basophils/100 WBC (Bld) 0.8 % [facility] Differential cell count method Nom (Bld) Auto [facility] Eosinophils (Bld) [#/Vol] 0.51 10*3/uL High <0.46 k/uL [facility] Eosinophils/100 WBC (Bld) 10.7 % [facility] Erythrocyte distribution width (RBC) [Ratio] 17.4 % High 11.5 - 15.0 % [facility] Hematocrit (Bld) [Volume fraction] 33.4 % Low 36.0 - 46.0 % [facility] Hemoglobin (Bld) [Mass/Vol] 11.2 g/dL Low 11.5 - 15.5 g/dL [facility] Immature Gran % 0.2 % [facility] Lymphocytes (Bld) [#/Vol] 1.42 10*3/uL 1.00 - 4.00 k/uL [facility] Lymphocytes/100 WBC (Bld) 29.9 % [facility] MCH (RBC) [Entitic mass] 31.6 pg 26.0 - 34.0 pg [facility] MCHC (RBC) [Mass/Vol] 33.5 g/dL 30.5 - 36.0 g/dL [facility] MCV (RBC) [Entitic vol] 94.4 fL 80.0 - 100.0 fL [facility] Monocytes (Bld) [#/Vol] 0.45 10*3/uL <0.87 k/uL [facility] Monocytes/100 WBC (Bld) 9.5 % [facility] Neutrophils (Bld) [#/Vol] 2.32 10*3/uL 1.45 - 7.50 k/uL [facility] Neutrophils/100 WBC (Bld) 48.9 % [facility] Nucleated RBC (Bld) [#/Vol] 10*3/uL <0.01 k/uL [facility] Nucleated RBC/100 WBC (Bld) [Ratio] 0.0 /100 WBC [facility] Platelet mean volume (Bld) [Entitic vol] 9.5 fL 9.0 - 12.7 fL [facility] Platelets (Bld) [#/Vol] 240 10*3/uL 150 - 400 k/uL [facility] RBC (Bld) [#/Vol] 3.54 10*6/uL Low 3.90 - 5.2 0 m/uL [facility] WBC (Bld) [#/Vol] 4.75 10*3/uL 3.70 - 11. 00 k/uL [facility] Comprehensive metabolic 2000 panelon 10-21-2021 Albumin [Mass/Vol] 3.8 g/dL Low 3.9 - 4.9 g/dL [facility] ALP [Catalytic activity/Vol] 141 U/L High 34 - 123 U/L [facility] ALT [Catalytic activity/Vol] 18 U/L 7 - 38 U/L [facility] Anion gap [Moles/Vol] 10 mmol/L 9 - 18 mmol/L [facility] AST [Catalytic activity/Vol] 32 U/L 13 - 35 U/L [facility] Bilirubin [Mass/Vol] 0.3 mg/dL 0.2 - 1 .3 mg/dL [facility] Calcium [Mass/Vol] 9.1 mg/dL 8.5 - 10. 2 mg/dL [facility] Chloride [Moles/Vol] 106 mmol/L High 97 - 10 5 mmol/L [facility] CO2 [Moles/Vol] 24 mmol/L 22 - 30 mmol/L [facility] Creatinine [Mass/Vol] 0.91 mg/dL 0.58 - 0.96 mg/dL [facility] Estimated Glomerular Filtration Rate 69 mL/min/1.73m >=60 mL/min/1.73m [facility] Glucose [Mass/Vol] 110 mg/dL High 74 - 99 mg/dL [facility] Potassium [Moles/Vol] 4.0 mmol/L 3.7 - 5.1 mmol/L [facility] Protein [Mass/Vol] 6.4 g/dL 6.3 - 8.0 g/dL [facility] Sodium [Moles/Vol] 140 mmol/L 136 - 144 mmol/L [facility] Urea nitrogen [Mass/Vol] 9 mg/dL 7 - 21 mg/dL [facility] CBC W Auto Differential pane l (Bld)on 09-30-2021 Abs Immature Gran <0.03 <0.10 k/uL [facility] [place] Basophils (Bld) [#/Vol] 0.04 10*3/uL <0.11 k/uL [facility] Basophils/100 WBC (Bld) 0.6 % [facility] Differential cell count method Nom (Bld) Auto [facility] Eosinophils (Bld) [#/Vol] 0.63 10*3/uL High <0.46 k/uL [facility] Eosinophils/100 WBC (Bld) 9.4 % [facility] Erythrocyte distribution width (RBC) [Ratio] 15.5 % High 11.5 - 15.0 % [facility] Hematocrit (Bld) [Volume fraction] 33.8 % Low 36.0 - 46.0 % [facility] Hemoglobin (Bld) [Mass/Vol] 11.0 g/dL Low 11.5 - 15.5 g/dL [facility] Immature Gran % 0.3 % [facility] Lymphocytes (Bld) [#/Vol] 1.14 10*3/uL 1.00 - 4.00 k/uL [facility] Lymphocytes/100 WBC (Bld) 17.0 % [facility] MCH (RBC) [Entitic mass] 30.3 pg 26.0 - 34.0 pg [facility] MCHC (RBC) [Mass/Vol] 32.5 g/dL 30.5 - 36.0 g/dL [facility] MCV (RBC) [Entitic vol] 93.1 fL 80.0 - 100.0 fL [facility] Monocytes (Bld) [#/Vol] 0.55 10*3/uL <0.87 k/uL [facility] Monocytes/100 WBC (Bld) 8.2 % [facility] Neutrophils (Bld) [#/Vol] 4.33 10*3/uL 1.45 - 7.50 k/uL [facility] Neutrophils/100 WBC (Bld) 64.5 % [facility] Nucleated RBC (Bld) [#/Vol] 10*3/uL <0.01 k/uL [facility] Nucleated RBC/100 WBC (Bld) [Ratio] 0.0 /100 WBC [facility] Platelet mean volume (Bld) [Entitic vol] 9.4 fL 9.0 - 12.7 fL [facility] Platelets (Bld) [#/Vol] 262 10*3/uL 150 - 400 k/uL [facility] RBC (Bld) [#/Vol] 3.63 10*6/uL Low 3.90 - 5.2 0 m/uL [facility] WBC (Bld) [#/Vol] 6.71 10*3/uL 3.70 - 11. 00 k/uL [facility] Comprehensive metabolic 2000 panelon 09-30-2021 Albumin [Mass/Vol] 3.5 g/dL Low 3.9 - 4.9 g/dL [facility] ALP [Catalytic activity/Vol] 170 U/L High 34 - 123 U/L [facility] ALT [Catalytic activity/Vol] 14 U/L 7 - 38 U/L [facility] Anion gap [Moles/Vol] 8 mmol/L Low 9 - 18 mmol/L [facility] AST [Catalytic activity/Vol] 25 U/L 13 - 35 U/L [facility] Bilirubin [Mass/Vol] 0.2 mg/dL 0.2 - 1 .3 mg/dL [facility] Calcium [Mass/Vol] 8.9 mg/dL 8.5 - 10. 2 mg/dL [facility] Chloride [Moles/Vol] 104 mmol/L 97 - 10 5 mmol/L [facility] CO2 [Moles/Vol] 27 mmol/L 22 - 30 mmol/L [facility] Creatinine [Mass/Vol] 1.25 mg/dL High 0.58 - 0.96 mg/dL [facility] Estimated Glomerular Filtration Rate 47 mL/min/1.73m Low >=60 mL/min/1.73m [facility] Glucose [Mass/Vol] 97 mg/dL 74 - 99 mg/dL [facility] Potassium [Moles/Vol] 3.9 mmol/L 3.7 - 5.1 mmol/L [facility] Protein [Mass/Vol] 6.0 g/dL Low 6.3 - 8.0 g/dL [facility] Sodium [Moles/Vol] 139 mmol/L 136 - 144 mmol/L [facility] Urea nitrogen [Mass/Vol] 20 mg/dL 7 - 21 mg/dL [facility] US THYROID/PARATHYROIDon [facility] CBC W Auto Differential pane l (Bld)on 09-02-2021 Abs Immature Gran <0.03 <0.10 k/uL [facility] [place] Basophils (Bld) [#/Vol] 10*3/uL <0.11 k/uL [facility] Basophils/100 WBC (Bld) 0.4 % [facility] Differential cell count method Nom (Bld) Auto [facility] Eosinophils (Bld) [#/Vol] 0.26 10*3/uL <0.46 k/uL [facility] Eosinophils/100 WBC (Bld) 5.4 % [facility] Erythrocyte distribution width (RBC) [Ratio] 15.2 % High 11.5 - 15.0 % [facility] Hematocrit (Bld) [Volume fraction] 38.3 % 36.0 - 46.0 % [facility] Hemoglobin (Bld) [Mass/Vol] 12.3 g/dL 11.5 - 15.5 g/dL [facility] Immature Gran % 0.4 % [facility] Lymphocytes (Bld) [#/Vol] 1.29 10*3/uL 1.00 - 4.00 k/uL [facility] Lymphocytes/100 WBC (Bld) 26.9 % [facility] MCH (RBC) [Entitic mass] 29.9 pg 26.0 - 34.0 pg [facility] MCHC (RBC) [Mass/Vol] 32.1 g/dL 30.5 - 36.0 g/dL [facility] MCV (RBC) [Entitic vol] 93.0 fL 80.0 - 100.0 fL [facility] Monocytes (Bld) [#/Vol] 0.46 10*3/uL <0.87 k/uL [facility] Monocytes/100 WBC (Bld) 9.6 % [facility] Neutrophils (Bld) [#/Vol] 2.75 10*3/uL 1.45 - 7.50 k/uL [facility] Neutrophils/100 WBC (Bld) 57.3 % [facility] Nucleated RBC (Bld) [#/Vol] 10*3/uL <0.01 k/uL [facility] Nucleated RBC/100 WBC (Bld) [Ratio] 0.0 /100 WBC [facility] Platelet mean volume (Bld) [Entitic vol] 10.1 fL 9.0 - 12.7 fL [facility] Platelets (Bld) [#/Vol] 177 10*3/uL 150 - 400 k/uL [facility] RBC (Bld) [#/Vol] 4.12 10*6/uL 3.90 - 5.2 0 m/uL [facility] WBC (Bld) [#/Vol] 4.80 10*3/uL 3.70 - 11. 00 k/uL [facility] Comprehensive metabolic 2000 panelon 09-02-2021 Albumin [Mass/Vol] 3.7 g/dL Low 3.9 - 4.9 g/dL [facility] ALP [Catalytic activity/Vol] 127 U/L High 34 - 123 U/L [facility] ALT [Catalytic activity/Vol] 20 U/L 7 - 38 U/L [facility] Anion gap [Moles/Vol] 5 mmol/L Low 9 - 18 mmol/L [facility] AST [Catalytic activity/Vol] 37 U/L High 13 - 35 U/L [facility] Bilirubin [Mass/Vol] 0.2 mg/dL 0.2 - 1 .3 mg/dL [facility] Calcium [Mass/Vol] 9.0 mg/dL 8.5 - 10. 2 mg/dL [facility] Chloride [Moles/Vol] 106 mmol/L High 97 - 10 5 mmol/L [facility] CO2 [Moles/Vol] 28 mmol/L 22 - 30 mmol/L [facility] Creatinine [Mass/Vol] 0.96 mg/dL 0.58 - 0.96 mg/dL [facility] Estimated Glomerular Filtration Rate 65 mL/min/1.73m >=60 mL/min/1.73m [facility] Glucose [Mass/Vol] 102 mg/dL High 74 - 99 mg/dL [facility] Potassium [Moles/Vol] 3.9 mmol/L 3.7 - 5.1 mmol/L [facility] Protein [Mass/Vol] 5.7 g/dL Low 6.3 - 8.0 g/dL [facility] Sodium [Moles/Vol] 139 mmol/L 136 - 144 mmol/L [facility] Urea nitrogen [Mass/Vol] 16 mg/dL 7 - 21 mg/dL [facility] No Panel Informationon 08-25 [facility] External Other: Preferred Me thod of Contacton 12-01-2016 methcontact secmsg [facility] Work Phone: [phone] Patient's prefered method of contact secmsg Invalid Interpretation Code [facility] Work Phone: [phone] Office Visiton 12-01-2016 Documentation of current medications (procedure) Done Invalid Interpretation Code [facility] Work Phone: [phone] Fall risk assessment No Invalid Interpretation Code [facility] Work Phone: [phone] Protein mass conc Done [facility] Work Phone: [phone] Tobacco smoking status NHIS Never smoker [facility] Work Phone: [phone] Tobacco use [facility] Never smoker Invalid Interpretation Code [facility] Work Phone: [phone] Replaced Document: [employer] E CG Observationson 12-01-2016 EKG QRS axis -31 deg [facility] Work Phone: [phone] electrocardiogram interpretation 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 ABNORMAL [facility] Work Phone: [phone] P Geraldine 47 deg [facility] Work Phone: [phone] P wave axis, electrocardiogram 47 deg Invalid Interpretation Code [facility] Work Phone: [phone] MS Interval 190 ms [facility] Work Phone: [phone] MS interval, electrocardiogram 190 ms Invalid Interpretation Code [facility] Work Phone: [phone] Pulse (Heart Rate) 68 /min Invalid Interpretation Code [facility] Work Phone: QRS axis, electrocardiogram -31 deg Invalid Interpretation Code [facility] Work Phone: [phone] QRS Duration 86 ms [facility] Work Phone: [phone] QRS duration, electrocardiogram 86 ms Invalid Interpretation Code [facility] Work Phone: [phone] QT Interval new path ms [facility] Work Phone: [phone] QT interval, electrocardiogram new path ms Invalid Interpretation Code [facility] Work Phone: [phone] QTc Olivas 412 ms [facility] Work Phone: [phone] T Geraldine 17 deg [facility] Work Phone: [phone] T wave axis, electrocardiogram 17 deg Invalid Interpretation Code [facility] Work Phone: [phone] Clinical Lists Update: Prelo blackener 11-30-2016 Left ventricular Ejection fraction 50 % Invalid Interpretation Code [facility] Work Phone: [phone] Vital Signs Date Time Vital Sign Value Performing Clinician Facility 02-14-2025 07:00-0400 Body height 157.5 cm [facility] Work Phone: [facility] 02-14-2025 07:00-0400 Body temperature 97.2 [degF] [facility] Work Phone: [facility] 02-14-2025 07:00-0400 Diastolic blood pressure 77 mm[Hg] [facility] Work Phone: [facility] 02-14-2025 07:00-0400 Heart rate 74 /min [facility] Work Phone: [facility] 02-14-2025 07:00-0400 Systolic blood pressure 133 mm[Hg] [facility] Work Phone: [facility] 02-13-2025 08:36-0400 Body mass index (BMI) [Ratio] 32.8 kg/m2 Rip Jollyi DO Work Phone: [facility] 02-13-2025 08:36-0400 Body temperature 98.1 [degF] Rip Rivers DO Work Phone: [facility] 02-13-2025 08:36-0400 Body weight 80.74 kg Rip Rivers DO Work Phone: [facility] 02-13-2025 08:36-0400 Diastolic blood pressure 69 mm[Hg] Rip Rivers DO Work Phone: [facility] 02-13-2025 08:36-0400 Heart rate 68 /min Rip Rivers DO Work Phone: [facility] 02-13-2025 08:36-0400 SaO2% (BldA) [Mass fraction] 95 % Rip Rivers DO Work Phone: [facility] 02-13-2025 08:36-0400 Systolic blood pressure 101 mm[Hg] Rpi Rivers DO Work Phone: [facility] 02-13-2025 08:24-0400 Body mass index (BMI) [Ratio] 32.8 kg/m2 [facility] Work Phone: [facility] 02-13-2025 08:24-0400 Body weight 80.74 kg [facility] Work Phone: [facility] 02-06-2025 08:05-0400 Body mass index (BMI) [Ratio] 32.24 kg/m2 Meenu Garay MD Work Phone: [facility] 02-06-2025 08:05-0400 Body temperature 98.91 [degF] Meenu Garay MD Work Phone: [facility] 02-06-2025 08:05-0400 Body weight 79.38 kg Meenu Garay MD Work Phone: [facility] 02-06-2025 08:05-0400 Diastolic blood pressure 60 mm[Hg] Meenu Garay MD Work Phone: [facility] 02-06-2025 08:05-0400 Heart rate 78 /min Meenu Garay MD Work Phone: [facility] 02-06-2025 08:05-0400 Respiratory rate 18 /min Meenu Garay MD Work Phone: [facility] 02-06-2025 08:05-0400 SaO2% (BldA) [Mass fraction] 96 % Meenu Garay MD Work Phone: [facility] 02-06-2025 08:05-0400 Systolic blood pressure 111 mm[Hg] Meenu Garay MD Work Phone: [facility] 01-24-2025 07:00-0400 Body temperature 98.1 [degF] [facility] Work Phone: [facility] 01-24-2025 07:00-0400 Diastolic blood pressure 75 mm[Hg] [facility] Work Phone: [facility] 01-24-2025 07:00-0400 Heart rate 102 /min [facility] Work Phone: [facility] 01-24-2025 07:00-0400 Systolic blood pressure 135 mm[Hg] [facility] Work Phone: [facility] 01-23-2025 08:28-0400 Body mass index (BMI) [Ratio] 32.61 kg/m2 Caity Cote PULLEY WORKER.OLIVING MACHINE OPERATOR Work Phone: [facility] 01-23-2025 08:28-0400 Body temperature 97.7 [degF] Caity Cote PULLEY WORKER.OLIVING MACHINE OPERATOR Work Phone: [facility] 01-23-2025 08:28-0400 Body weight 80.29 kg Caity Cote PULLEY WORKER.OLIVING MACHINE OPERATOR Work Phone: [facility] 01-23-2025 08:28-0400 Diastolic blood pressure 80 mm[Hg] Caity Cote PULLEY WORKER.OLIVING MACHINE OPERATOR Work Phone: [facility] 01-23-2025 08:28-0400 Heart rate 72 /min Caity Cote PULLEY WORKER.OLIVING MACHINE OPERATOR Work Phone: [facility] 01-23-2025 08:28-0400 SaO2% (BldA) [Mass fraction] 96 % Caity Cote PULLEY WORKER.OLIVING MACHINE OPERATOR Work Phone: [facility] 01-23-2025 08:28-0400 Systolic blood pressure 127 mm[Hg] Caity Cote OLIVING MACHINE OPERATOR Work Phone: [facility] 01-23-2025 07:57-0400 Body mass index (BMI) [Ratio] 32.61 kg/m2 [facility] Work Phone: [facility] 01-23-2025 07:57-0400 Body weight 80.29 kg [facility] Work Phone: [facility] 01-03-2025 08:48-0400 Body temperature 97.81 [degF] [facility] Work Phone: [facility] 01-03-2025 08:48-0400 Diastolic blood pressure 70 mm[Hg] [facility] Work Phone: [facility] 01-03-2025 08:48-0400 Heart rate 58 /min [facility] Work Phone: [facility] 01-03-2025 08:48-0400 Respiratory rate 16 /min [facility] Work Phone: [facility] 01-03-2025 08:48-0400 SaO2% (BldA) [Mass fraction] 98 % [facility] Work Phone: [facility] 01-03-2025 08:48-0400 Systolic blood pressure 127 mm[Hg] [facility] Work Phone: [facility] 01-02-2025 08:12-0400 Body mass index (BMI) [Ratio] 32.24 kg/m2 Rip Rivers DO Work Phone: [facility] 01-02-2025 08:12-0400 Body temperature 97.39 [degF] Rip Jollyi DO Work Phone: [facility] 01-02-2025 08:12-0400 Body weight 79.38 kg Rip Jollyi DO Work Phone: [facility] 01-02-2025 08:12-0400 Diastolic blood pressure 80 mm[Hg] Rip Jollyi DO Work Phone: [facility] 01-02-2025 08:12-0400 Heart rate 67 /min Rip Rivers DO Work Phone: [facility] 01-02-2025 08:12-0400 SaO2% (BldA) [Mass fraction] 99 % Rip Jollyi DO Work Phone: [facility] 01-02-2025 08:12-0400 Systolic blood pressure 123 mm[Hg] Rip Jollyi DO Work Phone: [facility] 01-02-2025 08:03-0400 Body mass index (BMI) [Ratio] 32.24 kg/m2 [facility] Work Phone: [facility] 01-02-2025 08:03-0400 Body weight 79.38 kg [facility] Work Phone: [facility] 12-13-2024 08:00-0400 Body temperature 97.81 [degF] [facility] Work Phone: [facility] 12-13-2024 08:00-0400 Diastolic blood pressure 68 mm[Hg] [facility] Work Phone: [facility] 12-13-2024 08:00-0400 Heart rate 64 /min [facility] Work Phone: [facility] 12-13-2024 08:00-0400 SaO2% (BldA) [Mass fraction] 97 % [facility] Work Phone: [facility] 12-13-2024 08:00-0400 Systolic blood pressure 129 mm[Hg] [facility] Work Phone: [facility] 12-12-2024 07:48-0400 Body temperature 97.39 [degF] Caity Cote PULLEY WORKER.OLIVING MACHINE OPERATOR Work Phone: [facility] 12-12-2024 07:48-0400 Diastolic blood pressure 77 mm[Hg] Riviera Cote PULLEY WORKER.OLIVING MACHINE OPERATOR Work Phone: [facility] 12-12-2024 07:48-0400 Heart rate 62 /min Caity Cote PULLEY WORKER.OLIVING MACHINE OPERATOR Work Phone: [facility] 12-12-2024 07:48-0400 SaO2% (BldA) [Mass fraction] 93 % Riviera Cote PULLEY WORKER.OLIVING MACHINE OPERATOR Work Phone: [facility] 12-12-2024 07:48-0400 Systolic blood pressure 130 mm[Hg] Rivieraleigh Cote PULLEY WORKER.OLIVING MACHINE OPERATOR Work Phone: [facility] 12-12-2024 07:00-0400 Body mass index (BMI) [Ratio] 31.88 kg/m2 [facility] Work Phone: [facility] 12-12-2024 07:00-0400 Body weight 78.47 kg [facility] Work Phone: [facility] 11-22-2024 09:00-0400 Body temperature 98.6 [degF] Treatment [facility] Work Phone: [facility] 11-22-2024 09:00-0400 Diastolic blood pressure 63 mm[Hg] Treatment [facility] Work Phone: [facility] 11-22-2024 09:00-0400 Heart rate 80 /min [facility] Work Phone: [facility] 11-22-2024 09:00-0400 SaO2% (BldA) [Mass fraction] 95 % [facility] Work Phone: [facility] 11-22-2024 09:00-0400 Systolic blood pressure 106 mm[Hg] [facility] Work Phone: [facility] 11-21-2024 08:58-0400 Body mass index (BMI) [Ratio] 31.51 kg/m2 Riviera Cote PULLEY WORKER.OLIVING MACHINE OPERATOR Work Phone: [facility] 11-21-2024 08:58-0400 Body temperature 97.9 [degF] Caity Cote PULLEY WORKER.OLIVING MACHINE OPERATOR Work Phone: [facility] 11-21-2024 08:58-0400 Body weight 77.56 kg Caity Cote PULLEY WORKER.OLIVING MACHINE OPERATOR Work Phone: [facility] 11-21-2024 08:58-0400 Diastolic blood pressure 79 mm[Hg] Caity Cote PULLEY WORKER.OLIVING MACHINE OPERATOR Work Phone: [facility] 11-21-2024 08:58-0400 Heart rate 58 /min Riviera Cote PULLEY WORKER.OLIVING MACHINE OPERATOR Work Phone: [facility] 11-21-2024 08:58-0400 SaO2% (BldA) [Mass fraction] 95 % Caity Cote PULLEY WORKER.OLIVING MACHINE OPERATOR Work Phone: [facility] 11-21-2024 08:58-0400 Systolic blood pressure 123 mm[Hg] Caity Cote PULLEY WORKER.OLIVING MACHINE OPERATOR Work Phone: [facility] 11-21-2024 08:26-0400 Body mass index (BMI) [Ratio] 31.51 kg/m2 [facility] Work Phone: [facility] 11-21-2024 08:26-0400 Body weight 77.56 kg [facility] Work Phone: [facility] 11-01-2024 07:51-0400 Body temperature 97 [degF] Treatment [facility]str Work Phone: [facility] 11-01-2024 07:51-0400 Diastolic blood pressure 72 mm[Hg] Treatment [facility] Work Phone: [facility] 11-01-2024 07:51-0400 Heart rate 65 /min Treatment [facility] Work Phone: [facility] 11-01-2024 07:51-0400 SaO2% (BldA) [Mass fraction] 94 % [facility] Work Phone: [facility] 11-01-2024 07:51-0400 Systolic blood pressure 94 mm[Hg] Treatment [facility]str Work Phone: [facility] 10-31-2024 07:57-0400 Body temperature 98.4 [degF] Caity Cote PULLEY WORKER.OLIVING MACHINE OPERATOR Work Phone: [facility] 10-31-2024 07:57-0400 Diastolic blood pressure 68 mm[Hg] Riviera Cote PULLEY WORKER.OLIVING MACHINE OPERATOR Work Phone: [facility] 10-31-2024 07:57-0400 Heart rate 58 /min Caity Maryenter PULLEY WORKER.OLIVING MACHINE OPERATOR Work Phone: [facility] 10-31-2024 07:57-0400 Respiratory rate 15 /min Caity Maryenter PULLEY WORKER.OLIVING MACHINE OPERATOR Work Phone: [facility] 10-31-2024 07:57-0400 SaO2% (BldA) [Mass fraction] 97 % Caity Cote PULLEY WORKER.OLIVING MACHINE OPERATOR Work Phone: [facility] 10-31-2024 07:57-0400 Systolic blood pressure 122 mm[Hg] Caity Maryenter PULLEY WORKER.OLIVING MACHINE OPERATOR Work Phone: [facility] 10-31-2024 07:56-0400 Body mass index (BMI) [Ratio] 31.28 kg/m2 Caity Maryenter PULLEY WORKER.OLIVING MACHINE OPERATOR Work Phone: [facility] 10-31-2024 07:56-0400 Body weight 77 kg Caity Cote PULLEY WORKER.OLIVING MACHINE OPERATOR Work Phone: [facility] 10-11-2024 07:43-0400 Body temperature 97.39 [degF] Treatment Wstr Work Phone: [facility] 10-11-2024 07:43-0400 Diastolic blood pressure 52 mm[Hg] Treatment Wstr Work Phone: [facility] 10-11-2024 07:43-0400 Heart rate 76 /min Treatment Wstr Work Phone: [facility] 10-11-2024 07:43-0400 SaO2% (BldA) [Mass fraction] 96 % Treatment Wstr Work Phone: [facility] 10-11-2024 07:43-0400 Systolic blood pressure 120 mm[Hg] Treatment Wstr Work Phone: [facility] 10-10-2024 09:21-0400 Body mass index (BMI) [Ratio] 31.64 kg/m2 Caity Cote PULLEY WORKER.OLIVING MACHINE OPERATOR Work Phone: [facility] 10-10-2024 09:21-0400 Body temperature 98.4 [degF] Riviera Cote PULLEY WORKER.OLIVING MACHINE OPERATOR Work Phone: [facility] 10-10-2024 09:21-0400 Body weight 77.9 kg Riviera Cote PULLEY WORKER.OLIVING MACHINE OPERATOR Work Phone: [facility] 10-10-2024 09:21-0400 Diastolic blood pressure 82 mm[Hg] Caity Cote PULLEY WORKER.OLIVING MACHINE OPERATOR Work Phone: [facility] 10-10-2024 09:21-0400 Heart rate 77 /min Caity Cote PULLEY WORKER.OLIVING MACHINE OPERATOR Work Phone: [facility] 10-10-2024 09:21-0400 SaO2% (BldA) [Mass fraction] 95 % Caity Cote PULLEY WORKER.OLIVING MACHINE OPERATOR Work Phone: [facility] 10-10-2024 09:21-0400 Systolic blood pressure 129 mm[Hg] Caity Cote PULLEY WORKER.OLIVING MACHINE OPERATOR Work Phone: [facility] 10-03-2024 10:39-0400 Body mass index (BMI) [Ratio] 31.78 kg/m2 Quitadrew Hoff Work Phone: [facility] 10-03-2024 10:39-0400 Body temperature 98.71 [degF] Quita Hoff Work Phone: [facility] 10-03-2024 10:39-0400 Body weight 78.25 kg Quita Hoff Work Phone: [facility] 10-03-2024 10:39-0400 Diastolic blood pressure 84 mm[Hg] Quita Hoff Work Phone: [facility] 10-03-2024 10:39-0400 Heart rate 74 /min Quita Hoff Work Phone: [facility] 10-03-2024 10:39-0400 SaO2% (BldA) [Mass fraction] 96 % Quita Hoff Work Phone: [facility] 10-03-2024 10:39-0400 Systolic blood pressure 133 mm[Hg] Quita Hoff Work Phone: [facility] 10-03-2024 10:25-0400 Body mass index (BMI) [Ratio] 31.78 kg/m2 Lab/Port Wstr Work Phone: [facility] 10-03-2024 10:25-0400 Body weight 78.25 kg Lab/Port Wstr Work Phone: [facility] 2024 10:17-0400 Body mass index (BMI) [Ratio] 32.01 kg/m2 Eliot Billingsley MD Work Phone: [facility] 2024 10:17-0400 Body weight 76.84 kg Eliot Billingsley MD Work Phone: [facility] 2024 10:17-0400 Diastolic blood pressure 68 mm[Hg] Eliot Billingsley MD Work Phone: [facility] 2024 10:17-0400 Heart rate 68 /min Eliot Billingsley MD Work Phone: [facility] 2024 10:17-0400 SaO2% (BldA) [Mass fraction] 88 % Eliot Billingsley MD Work Phone: [facility] 2024 10:17-0400 Systolic blood pressure 120 mm[Hg] Eliot Billingsley MD Work Phone: [facility] 09-06-2024 14:00-0400 Body temperature 98.01 [degF] Treatment Wstr Work Phone: [facility] 09-06-2024 14:00-0400 Diastolic blood pressure 67 mm[Hg] Treatment Wstr Work Phone: [facility] 09-06-2024 14:00-0400 Heart rate 60 /min Treatment Wstr Work Phone: [facility] 09-06-2024 14:00-0400 Systolic blood pressure 106 mm[Hg] Treatment Wstr Work Phone: [facility] 09-05-2024 10:47-0400 Body mass index (BMI) [Ratio] 31.88 kg/m2 Lab/Port Wstr Work Phone: [facility] 09-05-2024 10:47-0400 Body temperature 97.59 [degF] Caity Cote PULLEY WORKER.OLIVING MACHINE OPERATOR Work Phone: [facility] 09-05-2024 10:47-0400 Body weight 78.47 kg Lab/Port Wstr Work Phone: [facility] 09-05-2024 10:47-0400 Diastolic blood pressure 80 mm[Hg] Caity Ctoe PULLEY WORKER.OLIVING MACHINE OPERATOR Work Phone: [facility] 09-05-2024 10:47-0400 Heart rate 54 /min Caity Cote PULLEY WORKER.OLIVING MACHINE OPERATOR Work Phone: [facility] 09-05-2024 10:47-0400 SaO2% (BldA) [Mass fraction] 96 % Caity Cote PULLEY WORKER.OLIVING MACHINE OPERATOR Work Phone: [facility] 09-05-2024 10:47-0400 Systolic blood pressure 146 mm[Hg] Caity Cote PULLEY WORKER.OLIVING MACHINE OPERATOR Work Phone: [facility] 08-16-2024 14:00-0400 Body mass index (BMI) [Ratio] 32.15 kg/m2 Treatment Wstr Work Phone: [facility] 08-16-2024 14:00-0400 Body temperature 98.1 [degF] Treatment Wstr Work Phone: [facility] 08-16-2024 14:00-0400 Body weight 79.15 kg Treatment Wstr Work Phone: [facility] 08-16-2024 14:00-0400 Diastolic blood pressure 61 mm[Hg] Treatment Wstr Work Phone: [facility] 08-16-2024 14:00-0400 Heart rate 59 /min Treatment Wstr Work Phone: [facility] 08-16-2024 14:00-0400 SaO2% (BldA) [Mass fraction] 95 % Treatment Wstr Work Phone: [facility] 08-16-2024 14:00-0400 Systolic blood pressure 125 mm[Hg] Treatment Wstr Work Phone: [facility] 08-15-2024 11:04-0400 Body mass index (BMI) [Ratio] 32.34 kg/m2 Rip Masci DO Work Phone: [facility] 08-15-2024 11:04-0400 Body temperature 98.2 [degF] Rip Masci DO Work Phone: [facility] 08-15-2024 11:04-0400 Body weight 79.61 kg Rip Masci DO Work Phone: [facility] 08-15-2024 11:04-0400 Diastolic blood pressure 75 mm[Hg] Rip Masci DO Work Phone: [facility] 08-15-2024 11:04-0400 Heart rate 68 /min Rip Masci DO Work Phone: [facility] 08-15-2024 11:04-0400 SaO2% (BldA) [Mass fraction] 98 % Rip Masci DO Work Phone: [facility] 08-15-2024 11:04-0400 Systolic blood pressure 129 mm[Hg] Rip Masci DO Work Phone: [facility] 08-15-2024 10:55-0400 Body mass index (BMI) [Ratio] 32.34 kg/m2 Lab/Port Wstr Work Phone: [facility] 08-15-2024 10:55-0400 Body weight 79.61 kg Lab/Port Wstr Work Phone: [facility] 07-26-2024 13:25-0500 Body temperature 97.81 [degF] Treatment Wstr Work Phone: [facility] 07-26-2024 13:25-0500 Diastolic blood pressure 56 mm[Hg] Treatment Wstr Work Phone: [facility] 07-26-2024 13:25-0500 Heart rate 87 /min Treatment Wstr Work Phone: [facility] 07-26-2024 13:25-0500 SaO2% (BldA) [Mass fraction] 97 % Treatment Wstr Work Phone: [facility] 07-26-2024 13:25-0500 Systolic blood pressure 93 mm[Hg] Treatment Wstr Work Phone: [facility] 07-25-2024 10:14-0500 Body mass index (BMI) [Ratio] 31.69 kg/m2 Quitanydia Hoff Work Phone: [facility] 07-25-2024 10:14-0500 Body temperature 98.8 [degF] Quitanydia Hoff Work Phone: [facility] 07-25-2024 10:14-0500 Body weight 78.02 kg Quita Hoff Work Phone: [facility] 07-25-2024 10:14-0500 Diastolic blood pressure 77 mm[Hg] Quitanydia Hoff Work Phone: [facility] 07-25-2024 10:14-0500 Heart rate 61 /min Quita Hoff Work Phone: [facility] 07-25-2024 10:14-0500 SaO2% (BldA) [Mass fraction] 99 % Quitanydia Hoff Work Phone: [facility] 07-25-2024 10:14-0500 Systolic blood pressure 124 mm[Hg] Quita Hoff Work Phone: [facility] 07-25-2024 09:53-0500 Body mass index (BMI) [Ratio] 31.69 kg/m2 Lab/Port Wstr Work Phone: [facility] 07-25-2024 09:53-0500 Body weight 78.02 kg Lab/Port Wstr Work Phone: [facility] 07-05-2024 14:02-0500 Body temperature 97.81 [degF] Treatment Wstr Work Phone: [facility] 07-05-2024 14:02-0500 Diastolic blood pressure 53 mm[Hg] Treatment Wstr Work Phone: [facility] 07-05-2024 14:02-0500 Heart rate 60 /min Treatment Wstr Work Phone: [facility] 07-05-2024 14:02-0500 SaO2% (BldA) [Mass fraction] 97 % Treatment Wstr Work Phone: [facility] 07-05-2024 14:02-0500 Systolic blood pressure 112 mm[Hg] Treatment Wstr Work Phone: [facility] 07-04-2024 10:42-0500 Body mass index (BMI) [Ratio] 32.06 kg/m2 Lab/Port Wstr Work Phone: [facility] 07-04-2024 10:42-0500 Body temperature 98.29 [degF] Riviera Cote PULLEY WORKER.OLIVING MACHINE OPERATOR Work Phone: [facility] 07-04-2024 10:42-0500 Body weight 78.93 kg Lab/Port Wstr Work Phone: [facility] 07-04-2024 10:42-0500 Diastolic blood pressure 64 mm[Hg] Caity Cote PULLEY WORKER.OLIVING MACHINE OPERATOR Work Phone: [facility] 07-04-2024 10:42-0500 Heart rate 63 /min Riviera Cote PULLEY WORKER.OLIVING MACHINE OPERATOR Work Phone: [facility] 07-04-2024 10:42-0500 SaO2% (BldA) [Mass fraction] 96 % Riviera Cote PULLEY WORKER.OLIVING MACHINE OPERATOR Work Phone: [facility] 07-04-2024 10:42-0500 Systolic blood pressure 98 mm[Hg] Riviera Cote PULLEY WORKER.OLIVING MACHINE OPERATOR Work Phone: [facility] 06-14-2024 13:32-0500 Body temperature 97.9 [degF] Treatment Wstr Work Phone: [facility] 06-14-2024 13:32-0500 Diastolic blood pressure 72 mm[Hg] Treatment Wstr Work Phone: [facility] 06-14-2024 13:32-0500 Heart rate 62 /min Treatment Wstr Work Phone: [facility] 06-14-2024 13:32-0500 Respiratory rate 18 /min Treatment Wstr Work Phone: [facility] 06-14-2024 13:32-0500 SaO2% (BldA) [Mass fraction] 96 % Treatment Wstr Work Phone: [facility] 06-14-2024 13:32-0500 Systolic blood pressure 130 mm[Hg] Treatment Wstr Work Phone: [facility] 06-13-2024 11:20-0500 Body mass index (BMI) [Ratio] 32.06 kg/m2 Rip [employer] DO Work Phone: [facility] 06-13-2024 11:20-0500 Body temperature 98.2 [degF] Rip Masci DO Work Phone: [facility] 06-13-2024 11:20-0500 Body weight 78.93 kg Rip Masci DO Work Phone: [facility] 06-13-2024 11:20-0500 Diastolic blood pressure 73 mm[Hg] Rip Masci DO Work Phone: [facility] 06-13-2024 11:20-0500 Heart rate 61 /min Rip Masci DO Work Phone: [facility] 06-13-2024 11:20-0500 SaO2% (BldA) [Mass fraction] 97 % Rip [employer] DO Work Phone: [facility] 06-13-2024 11:20-0500 Systolic blood pressure 120 mm[Hg] Rip Masci DO Work Phone: [facility] 06-13-2024 10:58-0500 Body mass index (BMI) [Ratio] 32.06 kg/m2 Lab/Port Wstr Work Phone: [facility] 06-13-2024 10:58-0500 Body weight 78.93 kg Lab/Port Wstr Work Phone: [facility] 05-24-2024 09:59-0500 Diastolic blood pressure 70 mm[Hg] Treatment Wstr Work Phone: [facility] 05-24-2024 09:59-0500 Heart rate 72 /min Treatment Wstr Work Phone: [facility] 05-24-2024 09:59-0500 Respiratory rate 18 /min Treatment Wstr Work Phone: [facility] 05-24-2024 09:59-0500 SaO2% (BldA) [Mass fraction] 97 % Treatment Wstr Work Phone: [facility] 05-24-2024 09:59-0500 Systolic blood pressure 130 mm[Hg] Treatment Wstr Work Phone: [facility] 05-23-2024 10:56-0500 Body mass index (BMI) [Ratio] 31.97 kg/m2 Rip Masci DO Work Phone: [facility] 05-23-2024 10:56-0500 Body temperature 98.2 [degF] Rip Masci DO Work Phone: [facility] 05-23-2024 10:56-0500 Body weight 78.7 kg Rip Masci DO Work Phone: [facility] 05-23-2024 10:56-0500 Diastolic blood pressure 79 mm[Hg] Rip Masci DO Work Phone: [facility] 05-23-2024 10:56-0500 Heart rate 77 /min Rip Masci DO Work Phone: [facility] 05-23-2024 10:56-0500 SaO2% (BldA) [Mass fraction] 97 % Rip Masci DO Work Phone: [facility] 05-23-2024 10:56-0500 Systolic blood pressure 125 mm[Hg] Rip Masci DO Work Phone: [facility] 05-23-2024 10:40-0500 Body mass index (BMI) [Ratio] 31.97 kg/m2 Lab/Port Wstr Work Phone: [facility] 05-23-2024 10:40-0500 Body weight 78.7 kg Lab/Port Wstr Work Phone: [facility] 05-04-2024 13:00-0500 Body temperature 97.7 [degF] Treatment Wstr Work Phone: [facility] 05-04-2024 13:00-0500 Diastolic blood pressure 67 mm[Hg] Treatment Wstr Work Phone: [facility] 05-04-2024 13:00-0500 Heart rate 72 /min Treatment Wstr Work Phone: [facility] 05-04-2024 13:00-0500 Systolic blood pressure 136 mm[Hg] Treatment Wstr Work Phone: [facility] 05-02-2024 10:01-0500 Body mass index (BMI) [Ratio] 32.24 kg/m2 Rip Masci DO Work Phone: [facility] 05-02-2024 10:01-0500 Body temperature 97.5 [degF] Rip Masci DO Work Phone: [facility] 05-02-2024 10:01-0500 Body weight 79.38 kg Rip Masci DO Work Phone: [facility] 05-02-2024 10:01-0500 Diastolic blood pressure 65 mm[Hg] Rip Masci DO Work Phone: [facility] 05-02-2024 10:01-0500 Heart rate 66 /min Rip Masci DO Work Phone: [facility] 05-02-2024 10:01-0500 SaO2% (BldA) [Mass fraction] 96 % Rip Masci DO Work Phone: [facility] 05-02-2024 10:01-0500 Systolic blood pressure 109 mm[Hg] Rip Masci DO Work Phone: [facility] 05-02-2024 09:44-0500 Body mass index (BMI) [Ratio] 32.24 kg/m2 Lab/Port Wstr Work Phone: [facility] 05-02-2024 09:44-0500 Body weight 79.38 kg Lab/Port Wstr Work Phone: [facility] 04-12-2024 09:09-0500 Body temperature 97.59 [degF] Treatment Wstr Work Phone: [facility] 04-12-2024 09:09-0500 Diastolic blood pressure 76 mm[Hg] Treatment Wstr Work Phone: [facility] 04-12-2024 09:09-0500 Heart rate 64 /min Treatment Wstr Work Phone: [facility] 04-12-2024 09:09-0500 Respiratory rate 18 /min Treatment Wstr Work Phone: [facility] 04-12-2024 09:09-0500 SaO2% (BldA) [Mass fraction] 97 % Treatment Wstr Work Phone: [facility] 04-12-2024 09:09-0500 Systolic blood pressure 124 mm[Hg] Treatment Wstr Work Phone: [facility] 04-11-2024 08:39-0500 Body mass index (BMI) [Ratio] 32.61 kg/m2 Lab/Port Wstr Work Phone: [facility] 04-11-2024 08:39-0500 Body temperature 98.29 [degF] Caity Cote APRN.OLIVING MACHINE OPERATOR Work Phone: [facility] 04-11-2024 08:39-0500 Body weight 80.29 kg Lab/Port Wstr Work Phone: [facility] 04-11-2024 08:39-0500 Diastolic blood pressure 73 mm[Hg] Caity Cote APRN.OLIVING MACHINE OPERATOR Work Phone: [facility] 04-11-2024 08:39-0500 Heart rate 60 /min Caityleigh Cote PULLEY WORKER.OLIVING MACHINE OPERATOR Work Phone: [facility] 04-11-2024 08:39-0500 SaO2% (BldA) [Mass fraction] 94 % Caity Maryenter PULLEY WORKER.OLIVING MACHINE OPERATOR Work Phone: [facility] 04-11-2024 08:39-0500 Systolic blood pressure 110 mm[Hg] Caity Cote PULLEY WORKER.OLIVING MACHINE OPERATOR Work Phone: [facility] 03-22-2024 10:28-0400 Body temperature 98.4 [degF] Treatment Wstr Work Phone: [facility] 03-22-2024 10:28-0400 Diastolic blood pressure 73 mm[Hg] Treatment Wstr Work Phone: [facility] 03-22-2024 10:28-0400 Heart rate 75 /min Treatment Wstr Work Phone: [facility] 03-22-2024 10:28-0400 Respiratory rate 16 /min Treatment Wstr Work Phone: [facility] 03-22-2024 10:28-0400 SaO2% (BldA) [Mass fraction] 98 % Treatment Wstr Work Phone: [facility] 03-22-2024 10:28-0400 Systolic blood pressure 127 mm[Hg] Treatment Wstr Work Phone: [facility] 03-21-2024 07:48-0400 Body mass index (BMI) [Ratio] 32.98 kg/m2 Lab/Port Wstr Work Phone: [facility] 03-21-2024 07:48-0400 Body temperature 97.5 [degF] Rip Rivers DO Work Phone: [facility] 03-21-2024 07:48-0400 Body weight 81.19 kg Lab/Port Wstr Work Phone: [facility] 03-21-2024 07:48-0400 Diastolic blood pressure 64 mm[Hg] Rip Rivers DO Work Phone: [facility] 03-21-2024 07:48-0400 Heart rate 66 /min Rip Rivers DO Work Phone: [facility] 03-21-2024 07:48-0400 SaO2% (BldA) [Mass fraction] 97 % Rip Rivers DO Work Phone: [facility] 03-21-2024 07:48-0400 Systolic blood pressure 119 mm[Hg] Rip Rivers DO Work Phone: [facility] 02-28-2024 08:01-0400 Body temperature 97.5 [degF] Treatment Wstr Work Phone: [facility] 02-28-2024 08:01-0400 Diastolic blood pressure 81 mm[Hg] Treatment Wstr Work Phone: [facility] 02-28-2024 08:01-0400 Heart rate 64 /min Treatment Wstr Work Phone: [facility] 02-28-2024 08:01-0400 SaO2% (BldA) [Mass fraction] 97 % Treatment Wstr Work Phone: [facility] 02-28-2024 08:01-0400 Systolic blood pressure 130 mm[Hg] Treatment Wstr Work Phone: [facility] 02-27-2024 10:48-0400 Body mass index (BMI) [Ratio] 32.9 kg/m2 Caity Cote PULLEY WORKER.OLIVING MACHINE OPERATOR Work Phone: [facility] 02-27-2024 10:48-0400 Body temperature 98.01 [degF] Riviera Cote PULLEY WORKER.OLIVING MACHINE OPERATOR Work Phone: [facility] 02-27-2024 10:48-0400 Body weight 81 kg Caity Cote PULLEY WORKER.OLIVING MACHINE OPERATOR Work Phone: [facility] 02-27-2024 10:48-0400 Diastolic blood pressure 58 mm[Hg] Riviera Cote PULLEY WORKER.OLIVING MACHINE OPERATOR Work Phone: [facility] 02-27-2024 10:48-0400 Heart rate 55 /min Riviera Cote PULLEY WORKER.OLIVING MACHINE OPERATOR Work Phone: [facility] 02-27-2024 10:48-0400 SaO2% (BldA) [Mass fraction] 97 % Caity Cote PULLEY WORKER.OLIVING MACHINE OPERATOR Work Phone: [facility] 02-27-2024 10:48-0400 Systolic blood pressure 110 mm[Hg] Caity Cote PULLEY WORKER.OLIVING MACHINE OPERATOR Work Phone: [facility] 02-27-2024 10:13-0400 Body mass index (BMI) [Ratio] 32.89 kg/m2 Lab/Port Wstr Work Phone: [facility] 02-27-2024 10:13-0400 Body weight 80.97 kg Lab/Port Wstr Work Phone: [facility] 02-08-2024 08:20-0400 Body height 156.9 cm Treatment Wstr Work Phone: [facility] Comment on above: without shoes 02-08-2024 08:20-0400 Body temperature 97.81 [degF] Treatment Wstr Work Phone: [facility] 02-08-2024 08:20-0400 Diastolic blood pressure 74 mm[Hg] Treatment Wstr Work Phone: [facility] 02-08-2024 08:20-0400 Heart rate 62 /min Treatment Wstr Work Phone: [facility] 02-08-2024 08:20-0400 Respiratory rate 14 /min Treatment Wstr Work Phone: [facility] 02-08-2024 08:20-0400 SaO2% (BldA) [Mass fraction] 96 % Treatment Wstr Work Phone: [facility] 02-08-2024 08:20-0400 Systolic blood pressure 119 mm[Hg] Treatment Wstr Work Phone: [facility] 02-03-2024 09:32-0400 Body mass index (BMI) [Ratio] 33.44 kg/m2 Caity Cote PULLEY WORKER.OLIVING MACHINE OPERATOR Work Phone: [facility] 02-03-2024 09:32-0400 Body temperature 97.3 [degF] Caity Cote PULLEY WORKER.OLIVING MACHINE OPERATOR Work Phone: [facility] 02-03-2024 09:32-0400 Body weight 80.29 kg Caity Cote PULLEY WORKER.OLIVING MACHINE OPERATOR Work Phone: [facility] 02-03-2024 09:32-0400 Diastolic blood pressure 61 mm[Hg] Caity Cote PULLEY WORKER.OLIVING MACHINE OPERATOR Work Phone: [facility] 02-03-2024 09:32-0400 Heart rate 74 /min Rivieraleigh Cote PULLEY WORKER.OLIVING MACHINE OPERATOR Work Phone: [facility] 02-03-2024 09:32-0400 SaO2% (BldA) [Mass fraction] 100 % Caity Maryenter PULLEY WORKER.OLIVING MACHINE OPERATOR Work Phone: [facility] 02-03-2024 09:32-0400 Systolic blood pressure 114 mm[Hg] Caity Maryenter PULLEY WORKER.OLIVING MACHINE OPERATOR Work Phone: [facility] 02-03-2024 09:20-0400 Body mass index (BMI) [Ratio] 33.44 kg/m2 Lab/Port Wstr Work Phone: [facility] 02-03-2024 09:20-0400 Body weight 80.29 kg Lab/Port Wstr Work Phone: [facility] 01-16-2024 09:01-0400 Body mass index (BMI) [Ratio] 33.35 kg/m2 Treatment Wstr Work Phone: [facility] 01-16-2024 09:01-0400 Body temperature 97.11 [degF] Treatment Wstr Work Phone: [facility] 01-16-2024 09:01-0400 Body weight 80.06 kg Treatment Wstr Work Phone: [facility] 01-16-2024 09:01-0400 Diastolic blood pressure 72 mm[Hg] Treatment Wstr Work Phone: [facility] 01-16-2024 09:01-0400 Heart rate 62 /min Treatment Wstr Work Phone: [facility] 01-16-2024 09:01-0400 SaO2% (BldA) [Mass fraction] 96 % Treatment Wstr Work Phone: [facility] 01-16-2024 09:01-0400 Systolic blood pressure 112 mm[Hg] Treatment Wstr Work Phone: [facility] 01-04-2024 09:50-0400 Body mass index (BMI) [Ratio] 33.63 kg/m2 Rip Masci DO Work Phone: [facility] 01-04-2024 09:50-0400 Body temperature 98.49 [degF] Rip Masci DO Work Phone: [facility] 01-04-2024 09:50-0400 Body weight 80.74 kg Rip Masci DO Work Phone: [facility] 01-04-2024 09:50-0400 Diastolic blood pressure 57 mm[Hg] Rip Masci DO Work Phone: [facility] 01-04-2024 09:50-0400 Heart rate 67 /min Rip Masci DO Work Phone: [facility] 01-04-2024 09:50-0400 SaO2% (BldA) [Mass fraction] 96 % Rip Masci DO Work Phone: [facility] 01-04-2024 09:50-0400 Systolic blood pressure 93 mm[Hg] Rip Masci DO Work Phone: [facility] 12-22-2023 10:49-0400 Diastolic blood pressure 77 mm[Hg] Treatment Wstr Work Phone: [facility] 12-22-2023 10:49-0400 Heart rate 66 /min Treatment Wstr Work Phone: [facility] 12-22-2023 10:49-0400 Systolic blood pressure 144 mm[Hg] Treatment Wstr Work Phone: [facility] 07-18-2024 09:47-0400 Body temperature 98.49 [degF] Treatment Wstr Work Phone: [facility] 12-22-2023 09:47-0400 Respiratory rate 22 /min Treatment Wstr Work Phone: [facility] 12-15-2023 14:00-0400 Body temperature 97.59 [degF] Treatment Wstr Work Phone: [facility] 12-15-2023 14:00-0400 Diastolic blood pressure 61 mm[Hg] Treatment Wstr Work Phone: [facility] 12-15-2023 14:00-0400 Heart rate 61 /min Treatment Wstr Work Phone: [facility] 12-15-2023 14:00-0400 SaO2% (BldA) [Mass fraction] 96 % Treatment Wstr Work Phone: [facility] 12-15-2023 14:00-0400 Systolic blood pressure 112 mm[Hg] Treatment Wstr Work Phone: [facility] 12-14-2023 11:16-0400 Body mass index (BMI) [Ratio] 33.63 kg/m2 Caity Cote PULLEY WORKER.OLIVING MACHINE OPERATOR Work Phone: [facility] 12-14-2023 11:16-0400 Body temperature 97.3 [degF] Caity Cote PULLEY WORKER.OLIVING MACHINE OPERATOR Work Phone: [facility] 12-14-2023 11:16-0400 Body weight 80.74 kg Caity Cote PULLEY WORKER.OLIVING MACHINE OPERATOR Work Phone: [facility] 12-14-2023 11:16-0400 Diastolic blood pressure 61 mm[Hg] Caity Cote PULLEY WORKER.OLIVING MACHINE OPERATOR Work Phone: [facility] 12-14-2023 11:16-0400 Heart rate 62 /min Caity Cote PULLEY WORKER.OLIVING MACHINE OPERATOR Work Phone: [facility] 12-14-2023 11:16-0400 SaO2% (BldA) [Mass fraction] 95 % Caity Cote PULLEY WORKER.OLIVING MACHINE OPERATOR Work Phone: [facility] 12-14-2023 11:16-0400 Systolic blood pressure 93 mm[Hg] Caity Cote OLIVING MACHINE OPERATOR Work Phone: [facility] 12-14-2023 10:52-0400 Body mass index (BMI) [Ratio] 33.63 kg/m2 Lab/Port Wstr Work Phone: [facility] 12-14-2023 10:52-0400 Body weight 80.74 kg Lab/Port Wstr Work Phone: [facility] 11-24-2023 14:00-0400 Body temperature 97.5 [degF] Treatment Wstr Work Phone: [facility] 11-24-2023 14:00-0400 Diastolic blood pressure 72 mm[Hg] Treatment Wstr Work Phone: [facility] 11-24-2023 14:00-0400 Heart rate 80 /min Treatment Wstr Work Phone: [facility] 11-24-2023 14:00-0400 Systolic blood pressure 109 mm[Hg] Treatment Wstr Work Phone: [facility] 11-23-2023 10:30-0400 Body mass index (BMI) [Ratio] 34.58 kg/m2 Rip Masci DO Work Phone: [facility] 11-23-2023 10:30-0400 Body temperature 98.49 [degF] Rip Masci DO Work Phone: [facility] 11-23-2023 10:30-0400 Body weight 83.01 kg Rip Masci DO Work Phone: [facility] 11-23-2023 10:30-0400 Diastolic blood pressure 63 mm[Hg] Rip Masci DO Work Phone: [facility] 11-23-2023 10:30-0400 Heart rate 60 /min Rip Masci DO Work Phone: [facility] 11-23-2023 10:30-0400 SaO2% (BldA) [Mass fraction] 96 % Rip Masci DO Work Phone: [facility] 11-23-2023 10:30-0400 Systolic blood pressure 117 mm[Hg] Rip Rivers DO Work Phone: [facility] 11-03-2023 10:43-0400 Body temperature 97.5 [degF] Treatment Wstr Work Phone: [facility] 11-03-2023 10:43-0400 Diastolic blood pressure 71 mm[Hg] Treatment Wstr Work Phone: [facility] 11-03-2023 10:43-0400 Heart rate 56 /min Treatment Wstr Work Phone: [facility] 11-03-2023 10:43-0400 SaO2% (BldA) [Mass fraction] 95 % Treatment Wstr Work Phone: [facility] 11-03-2023 10:43-0400 Systolic blood pressure 122 mm[Hg] Treatment Wstr Work Phone: [facility] 11-02-2023 13:28-0400 Body mass index (BMI) [Ratio] 34.35 kg/m2 Caity Cote PULLEY WORKER.OLIVING MACHINE OPERATOR Work Phone: [facility] 11-02-2023 13:28-0400 Body temperature 99.3 [degF] Caity Cote PULLEY WORKER.OLIVING MACHINE OPERATOR Work Phone: [facility] 11-02-2023 13:28-0400 Body weight 82.46 kg Caity Cote PULLEY WORKER.OLIVING MACHINE OPERATOR Work Phone: [facility] 11-02-2023 13:28-0400 Diastolic blood pressure 72 mm[Hg] Caity Cote PULLEY WORKER.OLIVING MACHINE OPERATOR Work Phone: [facility] 11-02-2023 13:28-0400 Heart rate 63 /min Caity Cote PULLEY WORKER.OLIVING MACHINE OPERATOR Work Phone: [facility] 11-02-2023 13:28-0400 SaO2% (BldA) [Mass fraction] 96 % Caity Cote PULLEY WORKER.OLIVING MACHINE OPERATOR Work Phone: [facility] 11-02-2023 13:28-0400 Systolic blood pressure 113 mm[Hg] Caity Cote OLIVING MACHINE OPERATOR Work Phone: [facility] 11-02-2023 12:00-0400 Body mass index (BMI) [Ratio] 34.29 kg/m2 Lab/Port Wstr Work Phone: [facility] 11-02-2023 12:00-0400 Body weight 82.33 kg Lab/Port Wstr Work Phone: [facility] 10-13-2023 11:00-0400 Body temperature 98.2 [degF] Treatment Wstr Work Phone: [facility] 10-13-2023 11:00-0400 Diastolic blood pressure 56 mm[Hg] Treatment Wstr Work Phone: [facility] 10-13-2023 11:00-0400 Heart rate 65 /min Treatment Wstr Work Phone: [facility] 10-13-2023 11:00-0400 Systolic blood pressure 123 mm[Hg] Treatment Wstr Work Phone: [facility] 10-11-2023 10:22-0400 Body mass index (BMI) [Ratio] 34.29 kg/m2 Rip Masci DO Work Phone: [facility] 10-11-2023 10:22-0400 Body temperature 97.7 [degF] Rip Masci DO Work Phone: [facility] 10-11-2023 10:22-0400 Body weight 82.33 kg Rip Masci DO Work Phone: [facility] 10-11-2023 10:22-0400 Diastolic blood pressure 71 mm[Hg] Rip Masci DO Work Phone: [facility] 10-11-2023 10:22-0400 Heart rate 52 /min Rip Masci DO Work Phone: [facility] 10-11-2023 10:22-0400 SaO2% (BldA) [Mass fraction] 93 % Rip Masci DO Work Phone: [facility] 10-11-2023 10:22-0400 Systolic blood pressure 112 mm[Hg] Rip Rivers DO Work Phone: [facility] 2023 13:56-0400 Body temperature 97.11 [degF] Meenu Garay MD Work Phone: [facility] 2023 13:56-0400 Diastolic blood pressure 73 mm[Hg] Meenu Garay MD Work Phone: [facility] 2023 13:56-0400 Heart rate 66 /min Meenu Garay MD Work Phone: [facility] 2023 13:56-0400 SaO2% (BldA) [Mass fraction] 97 % Meenu Garay MD Work Phone: [facility] 2023 13:56-0400 Systolic blood pressure 146 mm[Hg] Meenu Garay MD Work Phone: [facility] 09-22-2023 12:33-0400 Body temperature 98.91 [degF] Treatment Wstr Work Phone: [facility] 09-22-2023 12:33-0400 Diastolic blood pressure 64 mm[Hg] Treatment Wstr Work Phone: [facility] 09-22-2023 12:33-0400 Heart rate 63 /min Treatment Wstr Work Phone: [facility] 09-22-2023 12:33-0400 Respiratory rate 20 /min Treatment Wstr Work Phone: [facility] 09-22-2023 12:33-0400 Systolic blood pressure 120 mm[Hg] Treatment Wstr Work Phone: [facility] 09-21-2023 08:34-0400 Body temperature 98.6 [degF] Rip Rivers DO Work Phone: [facility] 09-21-2023 08:34-0400 Body weight 82.33 kg Rip Rivers DO Work Phone: [facility] 09-21-2023 08:34-0400 Diastolic blood pressure 82 mm[Hg] Rip Riki DO Work Phone: [facility] 09-21-2023 08:34-0400 Heart rate 76 /min Rip Masci DO Work Phone: [facility] 09-21-2023 08:34-0400 SaO2% (BldA) [Mass fraction] 95 % Rip Masci DO Work Phone: [facility] 09-21-2023 08:34-0400 Systolic blood pressure 125 mm[Hg] Rip Masci DO Work Phone: [facility] 09-21-2023 08:19-0400 Body weight 82.33 kg Lab/Port Wstr Work Phone: [facility] 08-30-2023 09:02-0400 Body temperature 98.2 [degF] Rip Masci DO Work Phone: [facility] 08-30-2023 09:02-0400 Body weight 84.37 kg Lab/Port Wstr Work Phone: [facility] 08-30-2023 09:02-0400 Diastolic blood pressure 56 mm[Hg] Rip Riki DO Work Phone: [facility] 08-30-2023 09:02-0400 Heart rate 61 /min Rip Masci DO Work Phone: [facility] 08-30-2023 09:02-0400 Systolic blood pressure 113 mm[Hg] Rip Masci DO Work Phone: [facility] 08-26-2023 09:20-0400 Body temperature 98.1 [degF] Meenu Garay MD Work Phone: [facility] 08-26-2023 09:20-0400 Body weight 86.18 kg Meenu Garay MD Work Phone: [facility] 08-26-2023 09:20-0400 Diastolic blood pressure 70 mm[Hg] Meenu Garay MD Work Phone: [facility] 08-26-2023 09:20-0400 Heart rate 62 /min Meenu Garay MD Work Phone: [facility] 08-26-2023 09:20-0400 SaO2% (BldA) [Mass fraction] 97 % Meenu Garay MD Work Phone: [facility] 08-26-2023 09:20-0400 Systolic blood pressure 115 mm[Hg] Meenu Garay MD Work Phone: [facility] 08-17-2023 00:49-0400 Body temperature 98.1 [degF] Dr. Emma Farrell Work Phone: [facility] 08-17-2023 00:49-0400 Diastolic blood pressure 89 mm[Hg] Dr. Emma Farrell Work Phone: [facility] 08-17-2023 00:49-0400 Heart rate 64 /min Dr. Emma Farrell Work Phone: [facility] 08-17-2023 00:49-0400 Respiratory rate 19 /min Dr. Emma Farrell Work Phone: [facility] 08-17-2023 00:49-0400 SaO2% (BldA) [Mass fraction] 94 % Dr. Emma Farrell Work Phone: [facility] 08-17-2023 00:49-0400 Systolic blood pressure 120 mm[Hg] Dr. Emma Farrell Work Phone: [facility] 08-16-2023 21:50-0400 Body height 154.[address] Emma Farrell Work Phone: [facility] 08-16-2023 21:50-0400 Body mass index (BMI) [Ratio] 35.6 kg/m2 Dr. Emma Farrell Work Phone: [facility] 08-16-2023 21:50-0400 Body weight 85.[address] Emma Farrell Work Phone: [facility] 08-11-2023 13:02-0500 Body temperature 97.7 [degF] Treatment Wstr Work Phone: [facility] 08-11-2023 13:02-0500 Diastolic blood pressure 54 mm[Hg] Treatment Wstr Work Phone: [facility] 08-11-2023 13:02-0500 Heart rate 60 /min Treatment Wstr Work Phone: [facility] 08-11-2023 13:02-0500 SaO2% (BldA) [Mass fraction] 97 % Treatment Wstr Work Phone: [facility] 08-11-2023 13:02-0500 Systolic blood pressure 106 mm[Hg] Treatment Wstr Work Phone: [facility] 08-10-2023 09:43-0500 Body temperature 97.7 [degF] Rip Masci DO Work Phone: [facility] 08-10-2023 09:43-0500 Body weight 86.18 kg Rip Masci DO Work Phone: [facility] 08-10-2023 09:43-0500 Diastolic blood pressure 76 mm[Hg] Rip Masci DO Work Phone: [facility] 08-10-2023 09:43-0500 Heart rate 64 /min Rip Masci DO Work Phone: [facility] 08-10-2023 09:43-0500 SaO2% (BldA) [Mass fraction] 98 % Rip Masci DO Work Phone: [facility] 08-10-2023 09:43-0500 Systolic blood pressure 127 mm[Hg] Rip Masci DO Work Phone: [facility] 08-10-2023 09:26-0500 Body weight 86.18 kg Lab/Port Wstr Work Phone: [facility] 07-21-2023 13:45-0500 Body temperature 97.39 [degF] Treatment Wstr Work Phone: [facility] 07-21-2023 13:45-0500 Diastolic blood pressure 60 mm[Hg] Treatment Wstr Work Phone: [facility] 07-21-2023 13:45-0500 Heart rate 64 /min Treatment Wstr Work Phone: [facility] 07-21-2023 13:45-0500 SaO2% (BldA) [Mass fraction] 97 % Treatment Wstr Work Phone: [facility] 07-21-2023 13:45-0500 Systolic blood pressure 120 mm[Hg] Treatment Wstr Work Phone: [facility] 07-20-2023 10:19-0500 Body temperature 97.2 [degF] Riviera Cote PULLEY WORKER.OLIVING MACHINE OPERATOR Work Phone: [facility] 07-20-2023 10:19-0500 Body weight 84.37 kg Caity Cote PULLEY WORKER.OLIVING MACHINE OPERATOR Work Phone: [facility] 07-20-2023 10:19-0500 Diastolic blood pressure 63 mm[Hg] Caity Cote PULLEY WORKER.OLIVING MACHINE OPERATOR Work Phone: [facility] 07-20-2023 10:19-0500 Heart rate 61 /min Caity Cote PULLEY WORKER.OLIVING MACHINE OPERATOR Work Phone: [facility] 07-20-2023 10:19-0500 SaO2% (BldA) [Mass fraction] 97 % Caity Cote PULLEY WORKER.OLIVING MACHINE OPERATOR Work Phone: [facility] 07-20-2023 10:19-0500 Systolic blood pressure 112 mm[Hg] Caity Cote PULLEY WORKER.OLIVING MACHINE OPERATOR Work Phone: [facility] 06-16-2023 09:29-0500 Body height 154.9 cm Emma Farrell DO Work Phone: [facility] 06-16-2023 09:29-0500 Body mass index (BMI) [Ratio] 35.52 kg/m2 Emma Farrell DO Work Phone: [facility] 06-16-2023 09:29-0500 Body weight 85.28 kg Emma Obermarier DO Work Phone: [facility] 06-16-2023 09:29-0500 Diastolic blood pressure 66 mm[Hg] Emma Oberhauser DO Work Phone: [facility] 06-16-2023 09:29-0500 Heart rate 67 /min Emma Obermarier DO Work Phone: [facility] 06-16-2023 09:29-0500 Systolic blood pressure 102 mm[Hg] Emma Obermarier DO Work Phone: [facility] 05-27-2023 09:35-0500 Body height 154.[address] Mitch Mejia Work Phone: [facility] 05-27-2023 09:35-0500 Body mass index (BMI) [Ratio] 36.1 kg/m2 Dr. Mitch Mejia Work Phone: [facility] 05-27-2023 09:35-0500 Body weight 86.[address] Mitch Mejia Work Phone: [facility] 05-27-2023 09:35-0500 Diastolic blood pressure 61 mm[Hg] Dr. Mitch Mejia Work Phone: [facility] 05-27-2023 09:35-0500 Heart rate 66 /min Dr. Mitch Mejia Work Phone: [facility] 05-27-2023 09:35-0500 Respiratory rate 18 /min Dr. Mitch Mejia Work Phone: [facility] 05-27-2023 09:35-0500 SaO2% (BldA) [Mass fraction] 95 % Dr. Mitch Mejia Work Phone: [facility] 05-27-2023 09:35-0500 Systolic blood pressure 103 mm[Hg] Dr. Mitch Mejia Work Phone: [facility] 04-27-2023 09:00-0500 Body temperature 98.1 [degF] Treatment Wstr Work Phone: [facility] 04-27-2023 09:00-0500 Diastolic blood pressure 55 mm[Hg] Treatment Wstr Work Phone: [facility] 04-27-2023 09:00-0500 Heart rate 70 /min Treatment Wstr Work Phone: [facility] 04-27-2023 09:00-0500 Systolic blood pressure 129 mm[Hg] Treatment Wstr Work Phone: [facility] 04-26-2023 09:19-0500 Body temperature 97.59 [degF] Rip Masci DO Work Phone: [facility] 04-26-2023 09:19-0500 Body weight 87.09 kg Lab/Port Wstr Work Phone: [facility] 04-26-2023 09:19-0500 Diastolic blood pressure 70 mm[Hg] Rip Masci DO Work Phone: [facility] 04-26-2023 09:19-0500 Heart rate 64 /min Rip Masci DO Work Phone: [facility] 04-26-2023 09:19-0500 SaO2% (BldA) [Mass fraction] 96 % Rip Masci DO Work Phone: [facility] 04-26-2023 09:19-0500 Systolic blood pressure 128 mm[Hg] Rip Masci DO Work Phone: [facility] 04-06-2023 08:39-0400 Body temperature 97.59 [degF] Caity Cote PULLEY WORKER.OLIVING MACHINE OPERATOR Work Phone: [facility] 04-06-2023 08:39-0400 Body weight 88 kg Caity Cote PULLEY WORKER.OLIVING MACHINE OPERATOR Work Phone: [facility] 04-06-2023 08:39-0400 Diastolic blood pressure 78 mm[Hg] Caity Maryenter PULLEY WORKER.OLIVING MACHINE OPERATOR Work Phone: [facility] 04-06-2023 08:39-0400 Heart rate 78 /min Caity Cote PULLEY WORKER.OLIVING MACHINE OPERATOR Work Phone: [facility] 04-06-2023 08:39-0400 SaO2% (BldA) [Mass fraction] 99 % Caity Cote PULLEY WORKER.OLIVING MACHINE OPERATOR Work Phone: [facility] 04-06-2023 08:39-0400 Systolic blood pressure 117 mm[Hg] Caity Cote PULLEY WORKER.OLIVING MACHINE OPERATOR Work Phone: [facility] 03-17-2023 13:25-0400 Body temperature 97 [degF] Treatment Wstr Work Phone: [facility] 03-17-2023 13:25-0400 Diastolic blood pressure 66 mm[Hg] Treatment Wstr Work Phone: [facility] 03-17-2023 13:25-0400 Heart rate 59 /min Treatment Wstr Work Phone: [facility] 03-17-2023 13:25-0400 Systolic blood pressure 129 mm[Hg] Treatment Wstr Work Phone: [facility] 03-16-2023 09:00-0400 Body weight 87.54 kg Lab/Port Wstr Work Phone: [facility] 02-23-2023 10:41-0400 Body temperature 99 [degF] Meenu Garay MD, MD Work Phone: [facility] 02-23-2023 10:41-0400 Body weight 85.64 kg Meenu Garay MD, MD Work Phone: [facility] 02-23-2023 10:41-0400 Diastolic blood pressure 78 mm[Hg] Meenu Garay MD, MD Work Phone: [facility] 02-23-2023 10:41-0400 Heart rate 62 /min Meenu Garay MD, MD Work Phone: [facility] 02-23-2023 10:41-0400 SaO2% (BldA) [Mass fraction] 95 % Meenu Garay MD, MD Work Phone: [facility] 02-23-2023 10:41-0400 Systolic blood pressure 121 mm[Hg] Meenu Garay MD, MD Work Phone: [facility] 02-23-2023 09:47-0400 Body temperature 99 [degF] Rip Masci DO Work Phone: [facility] 02-23-2023 09:47-0400 Body weight 85.5 kg Rip Masci DO Work Phone: [facility] 02-23-2023 09:47-0400 Diastolic blood pressure 78 mm[Hg] Rip Masci DO Work Phone: [facility] 02-23-2023 09:47-0400 Heart rate 62 /min Rip Masci DO Work Phone: [facility] 02-23-2023 09:47-0400 SaO2% (BldA) [Mass fraction] 95 % Rip Masci DO Work Phone: [facility] 02-23-2023 09:47-0400 Systolic blood pressure 121 mm[Hg] Rip Masci DO Work Phone: [facility] 02-23-2023 09:31-0400 Body weight 85.5 kg Lab/Port Wstr Work Phone: [facility] 02-17-2023 15:18-0400 SaO2% (BldA) [Mass fraction] 92 % Dr. Mitch Mejia Work Phone: [facility] 02-17-2023 14:00-0400 Body temperature 98.2 [degF] Dr. Mitch Mejia Work Phone: [facility] 02-17-2023 14:00-0400 Diastolic blood pressure 57 mm[Hg] Dr. Mitch Mejia Work Phone: [facility] 02-17-2023 14:00-0400 Heart rate 65 /min Dr. Mitch Mejia Work Phone: [facility] 02-17-2023 14:00-0400 Respiratory rate 16 /min Dr. Mitch Mejia Work Phone: [facility] 02-17-2023 14:00-0400 Systolic blood pressure 116 mm[Hg] Dr. Mitch Mejia Work Phone: [facility] 02-17-2023 01:40-0400 Body height 154.[address] Mitch Mejia Work Phone: [facility] 02-17-2023 01:40-0400 Body mass index (BMI) [Ratio] 34.1 kg/m2 Dr. Mitch Mejia Work Phone: [facility] 02-17-2023 01:40-0400 Body weight 81.[address] Mitch Mejia Work Phone: [facility] 02-16-2023 23:46-0400 Body temperature 97.9 [degF] Dr. Mitch Mejia Work Phone: [facility] 02-16-2023 23:46-0400 Diastolic blood pressure 69 mm[Hg] Dr. Mitch Mejia Work Phone: [facility] 02-16-2023 23:46-0400 Heart rate 58 /min Dr. Mitch Mejia Work Phone: [facility] 02-16-2023 23:46-0400 Respiratory rate 20 /min Dr. Mitch Mejia Work Phone: [facility] 02-16-2023 23:46-0400 SaO2% (BldA) [Mass fraction] 98 % Dr. Mitch Mejia Work Phone: [facility] 02-16-2023 23:46-0400 Systolic blood pressure 144 mm[Hg] Dr. Mitch Mejia Work Phone: [facility] 02-16-2023 18:09-0400 Body height 154.[address] Mitch Mejia Work Phone: [facility] 02-16-2023 18:09-0400 Body mass index (BMI) [Ratio] 36.1 kg/m2 Dr. Mitch Mejia Work Phone: [facility] 02-16-2023 18:09-0400 Body weight 86.[address] Mitch Mejia Work Phone: [facility] 02-03-2023 09:33-0400 Body temperature 98.91 [degF] Meenu Garay MD, MD Work Phone: [facility] 02-03-2023 09:33-0400 Body weight 85.73 kg Meenu Garay MD, MD Work Phone: [facility] 02-03-2023 09:33-0400 Diastolic blood pressure 88 mm[Hg] Meenu Garay MD, MD Work Phone: [facility] 02-03-2023 09:33-0400 Heart rate 63 /min Meenu Garay MD, MD Work Phone: [facility] 02-03-2023 09:33-0400 Respiratory rate 15 /min Meenu Garay MD, MD Work Phone: [facility] 02-03-2023 09:33-0400 SaO2% (BldA) [Mass fraction] 97 % Meenu Garay MD, MD Work Phone: [facility] 02-03-2023 09:33-0400 Systolic blood pressure 122 mm[Hg] Meenu Garay MD, MD Work Phone: [facility] 02-02-2023 08:35-0400 Body weight 85.73 kg Lab/Port Wstr Work Phone: [facility] 01-13-2023 13:00-0400 Body temperature 98.01 [degF] Treatment Wstr Work Phone: [facility] 01-13-2023 13:00-0400 Diastolic blood pressure 53 mm[Hg] Treatment Wstr Work Phone: [facility] 01-13-2023 13:00-0400 Heart rate 66 /min Treatment Wstr Work Phone: [facility] 01-13-2023 13:00-0400 Systolic blood pressure 112 mm[Hg] Treatment Wstr Work Phone: [facility] 01-12-2023 09:33-0400 Body temperature 97.9 [degF] Rip Masci DO Work Phone: [facility] 01-12-2023 09:33-0400 Body weight 85.5 kg Rip Masci DO Work Phone: [facility] 01-12-2023 09:33-0400 Diastolic blood pressure 68 mm[Hg] Rip Masci DO Work Phone: [facility] 01-12-2023 09:33-0400 Heart rate 66 /min Rip Masci DO Work Phone: [facility] 01-12-2023 09:33-0400 SaO2% (BldA) [Mass fraction] 95 % Rip Masci DO Work Phone: [facility] 01-12-2023 09:33-0400 Systolic blood pressure 110 mm[Hg] Rip Masci DO Work Phone: [facility] 12-22-2022 09:53-0400 Body temperature 98.1 [degF] Rip Masci DO Work Phone: [facility] 12-22-2022 09:53-0400 Body weight 84.6 kg Rip Masci DO Work Phone: [facility] 12-22-2022 09:53-0400 Diastolic blood pressure 64 mm[Hg] Rip Masci DO Work Phone: [facility] 12-22-2022 09:53-0400 Heart rate 61 /min Rip Masci DO Work Phone: [facility] 12-22-2022 09:53-0400 SaO2% (BldA) [Mass fraction] 97 % Rip Masci DO Work Phone: [facility] 12-22-2022 09:53-0400 Systolic blood pressure 119 mm[Hg] Rip Masci DO Work Phone: [facility] 12-02-2022 09:12-0400 Body temperature 97.59 [degF] Treatment Wstr Work Phone: [facility] 12-02-2022 09:12-0400 Diastolic blood pressure 59 mm[Hg] Treatment Wstr Work Phone: [facility] 12-02-2022 09:12-0400 Heart rate 63 /min Treatment Wstr Work Phone: [facility] 12-02-2022 09:12-0400 Respiratory rate 16 /min Treatment Wstr Work Phone: [facility] 12-02-2022 09:12-0400 SaO2% (BldA) [Mass fraction] 94 % Treatment Wstr Work Phone: [facility] 12-02-2022 09:12-0400 Systolic blood pressure 114 mm[Hg] Treatment Wstr Work Phone: [facility] 12-01-2022 07:57-0400 Body temperature 98.01 [degF] Rip Masci DO Work Phone: [facility] 12-01-2022 07:57-0400 Body weight 86.64 kg Rip Masci DO Work Phone: [facility] 12-01-2022 07:57-0400 Diastolic blood pressure 56 mm[Hg] Rip Masci DO Work Phone: [facility] 12-01-2022 07:57-0400 Heart rate 59 /min Rip Masci DO Work Phone: [facility] 12-01-2022 07:57-0400 SaO2% (BldA) [Mass fraction] 95 % Rip Masci DO Work Phone: [facility] 12-01-2022 07:57-0400 Systolic blood pressure 110 mm[Hg] Rip Masci DO Work Phone: [facility] 11-26-2022 11:14-0400 Body height 154.[address] Mitch Mejia Work Phone: [facility] 11-26-2022 11:14-0400 Body mass index (BMI) [Ratio] 35.6 kg/m2 Dr. Mitch Mejia Work Phone: [facility] 11-26-2022 11:14-0400 Body weight 85.[address] Mitch Mejia Work Phone: [facility] 11-26-2022 11:14-0400 Diastolic blood pressure 65 mm[Hg] Dr. Mitch Mejia Work Phone: [facility] 11-26-2022 11:14-0400 Heart rate 60 /min Dr. Mitch Mejia Work Phone: [facility] 11-26-2022 11:14-0400 Respiratory rate 18 /min Dr. Mitch Mejia Work Phone: [facility] 11-26-2022 11:14-0400 Systolic blood pressure 100 mm[Hg] Dr. Mitch Mejia Work Phone: [facility] 11-11-2022 08:00-0400 Body temperature 98.4 [degF] Treatment Wstr Work Phone: [facility] 11-11-2022 08:00-0400 Diastolic blood pressure 49 mm[Hg] Treatment Wstr Work Phone: [facility] 11-11-2022 08:00-0400 Heart rate 111 /min Treatment Wstr Work Phone: [facility] 11-11-2022 08:00-0400 Respiratory rate 18 /min Treatment Wstr Work Phone: [facility] 11-11-2022 08:00-0400 SaO2% (BldA) [Mass fraction] 100 % Treatment Wstr Work Phone: [facility] 11-11-2022 08:00-0400 Systolic blood pressure 103 mm[Hg] Treatment Wstr Work Phone: [facility] 11-10-2022 09:52-0400 Body height 154.9 cm Rip Riki DO Work Phone: [facility] 11-10-2022 09:52-0400 Body temperature 98.4 [degF] Rip Masci DO Work Phone: [facility] 11-10-2022 09:52-0400 Body weight 85.73 kg Rip Masci DO Work Phone: [facility] 11-10-2022 09:52-0400 Diastolic blood pressure 56 mm[Hg] Rip Masci DO Work Phone: [facility] 11-10-2022 09:52-0400 Heart rate 68 /min Rip Masci DO Work Phone: [facility] 11-10-2022 09:52-0400 Respiratory rate 12 /min Rip Masci DO Work Phone: [facility] 11-10-2022 09:52-0400 SaO2% (BldA) [Mass fraction] 95 % Rip Masci DO Work Phone: [facility] 11-10-2022 09:52-0400 Systolic blood pressure 106 mm[Hg] Rip Masci DO Work Phone: [facility] 11-10-2022 09:41-0400 Body weight 85.73 kg Lab/Port Wstr Work Phone: [facility] 10-20-2022 10:02-0400 Body temperature 98.4 [degF] Rip Masci DO Work Phone: [facility] 10-20-2022 10:02-0400 Body weight 86.18 kg Rip Masci DO Work Phone: [facility] 10-20-2022 10:02-0400 Diastolic blood pressure 61 mm[Hg] Rip Masci DO Work Phone: [facility] 10-20-2022 10:02-0400 Heart rate 60 /min Rip Masci DO Work Phone: [facility] 10-20-2022 10:02-0400 SaO2% (BldA) [Mass fraction] 94 % Rip Masci DO Work Phone: [facility] 10-20-2022 10:02-0400 Systolic blood pressure 119 mm[Hg] Rip Masci DO Work Phone: [facility] 09-30-2022 12:45-0400 Body temperature 96.91 [degF] Treatment Wstr Work Phone: [facility] 09-30-2022 12:45-0400 Diastolic blood pressure 59 mm[Hg] Treatment Wstr Work Phone: [facility] 09-30-2022 12:45-0400 Heart rate 56 /min Treatment Wstr Work Phone: [facility] 09-30-2022 12:45-0400 Systolic blood pressure 118 mm[Hg] Treatment Wstr Work Phone: [facility] 09-30-2022 12:28-0400 Body weight 85.28 kg Treatment Wstr Work Phone: [facility] 09-09-2022 09:00-0400 Body temperature 98.01 [degF] Treatment Wstr Work Phone: [facility] 09-09-2022 09:00-0400 Diastolic blood pressure 53 mm[Hg] Treatment Wstr Work Phone: [facility] 09-09-2022 09:00-0400 Heart rate 62 /min Treatment Wstr Work Phone: [facility] 09-09-2022 09:00-0400 SaO2% (BldA) [Mass fraction] 96 % Treatment Wstr Work Phone: [facility] 09-09-2022 09:00-0400 Systolic blood pressure 106 mm[Hg] Treatment Wstr Work Phone: [facility] 09-08-2022 11:38-0400 Body weight 86.41 kg Rip Masci DO Work Phone: [facility] 09-08-2022 11:38-0400 Diastolic blood pressure 62 mm[Hg] Rip Masci DO Work Phone: [facility] 09-08-2022 11:38-0400 Heart rate 64 /min Rip Masci DO Work Phone: [facility] 09-08-2022 11:38-0400 SaO2% (BldA) [Mass fraction] 97 % Rip Masci DO Work Phone: [facility] 09-08-2022 11:38-0400 Systolic blood pressure 114 mm[Hg] Rip Masci DO Work Phone: [facility] 08-18-2022 10:06-0400 Body height 156.2 cm Rip Masci DO Work Phone: [facility] 08-18-2022 10:06-0400 Body temperature 98.49 [degF] Rip Masci DO Work Phone: [facility] 08-18-2022 10:06-0400 Body weight 85.73 kg Rip Masci DO Work Phone: [facility] 08-18-2022 10:06-0400 Diastolic blood pressure 60 mm[Hg] Rip Masci DO Work Phone: [facility] 08-18-2022 10:06-0400 Heart rate 63 /min Rip Masci DO Work Phone: [facility] 08-18-2022 10:06-0400 Systolic blood pressure 124 mm[Hg] Rip Masci DO Work Phone: [facility] 07-29-2022 08:33-0500 Body temperature 97.59 [degF] Riviera Cote PULLEY WORKER.OLIVING MACHINE OPERATOR Work Phone: [facility] 07-29-2022 08:33-0500 Body weight 86.18 kg Riviera Cote PULLEY WORKER.OLIVING MACHINE OPERATOR Work Phone: [facility] 07-29-2022 08:33-0500 Diastolic blood pressure 56 mm[Hg] Riviera Cote PULLEY WORKER.OLIVING MACHINE OPERATOR Work Phone: [facility] 07-29-2022 08:33-0500 Heart rate 69 /min Riviera Cote PULLEY WORKER.OLIVING MACHINE OPERATOR Work Phone: [facility] 07-29-2022 08:33-0500 Systolic blood pressure 119 mm[Hg] Riviera Cote PULLEY WORKER.OLIVING MACHINE OPERATOR Work Phone: [facility] 07-08-2022 09:00-0500 Body temperature 96.49 [degF] Treatment Wstr Work Phone: [facility] 07-08-2022 09:00-0500 Diastolic blood pressure 63 mm[Hg] Treatment Wstr Work Phone: [facility] 07-08-2022 09:00-0500 Heart rate 61 /min Treatment Wstr Work Phone: [facility] 07-08-2022 09:00-0500 SaO2% (BldA) [Mass fraction] 97 % Treatment Wstr Work Phone: [facility] 07-08-2022 09:00-0500 Systolic blood pressure 126 mm[Hg] Treatment Wstr Work Phone: [facility] 07-06-2022 08:11-0500 Body temperature 98.4 [degF] Rip Masci DO Work Phone: [facility] 07-06-2022 08:11-0500 Body weight 86.86 kg Lab/Port Wstr Work Phone: [facility] 07-06-2022 08:11-0500 Diastolic blood pressure 66 mm[Hg] Rip Masci DO Work Phone: [facility] 07-06-2022 08:11-0500 Heart rate 60 /min Rip Masci DO Work Phone: [facility] 07-06-2022 08:11-0500 Systolic blood pressure 112 mm[Hg] Rip Masci DO Work Phone: [facility] 06-17-2022 10:00-0500 Body temperature 98.2 [degF] Treatment Wstr Work Phone: [facility] 06-17-2022 10:00-0500 Diastolic blood pressure 56 mm[Hg] Treatment Wstr Work Phone: [facility] 06-17-2022 10:00-0500 Heart rate 63 /min Treatment Wstr Work Phone: [facility] 06-17-2022 10:00-0500 Systolic blood pressure 115 mm[Hg] Treatment Wstr Work Phone: [facility] 06-15-2022 08:33-0500 Body temperature 97.81 [degF] Caity Cote PULLEY WORKER.OLIVING MACHINE OPERATOR Work Phone: [facility] 06-15-2022 08:33-0500 Body weight 84.6 kg Riviera Cote PULLEY WORKER.OLIVING MACHINE OPERATOR Work Phone: [facility] 06-15-2022 08:33-0500 Diastolic blood pressure 68 mm[Hg] Riviera Cote PULLEY WORKER.OLIVING MACHINE OPERATOR Work Phone: [facility] 06-15-2022 08:33-0500 Heart rate 64 /min Caity Cote PULLEY WORKER.OLIVING MACHINE OPERATOR Work Phone: [facility] 06-15-2022 08:33-0500 Systolic blood pressure 124 mm[Hg] Riviera Cote PULLEY WORKER.OLIVING MACHINE OPERATOR Work Phone: [facility] 06-15-2022 08:21-0500 Body weight 84.6 kg Lab/Port Wstr Work Phone: [facility] 05-27-2022 10:39-0500 Body temperature 98.6 [degF] Treatment Wstr Work Phone: [facility] 05-27-2022 10:39-0500 Diastolic blood pressure 60 mm[Hg] Treatment Wstr Work Phone: [facility] 05-27-2022 10:39-0500 Heart rate 64 /min Treatment Wstr Work Phone: [facility] 05-27-2022 10:39-0500 Systolic blood pressure 115 mm[Hg] Treatment Wstr Work Phone: [facility] 05-25-2022 08:09-0500 Body temperature 98.4 [degF] Rip Rivers DO Work Phone: [facility] 05-25-2022 08:09-0500 Body weight 85.73 kg Rip Rivers DO Work Phone: [facility] 05-25-2022 08:09-0500 Diastolic blood pressure 61 mm[Hg] Rip Rivers DO Work Phone: [facility] 05-25-2022 08:09-0500 Heart rate 58 /min Rip Jollyi DO Work Phone: [facility] 05-25-2022 08:09-0500 SaO2% (BldA) [Mass fraction] 96 % Rip Rivers DO Work Phone: [facility] 05-25-2022 08:09-0500 Systolic blood pressure 126 mm[Hg] Rip Jollyi DO Work Phone: [facility] 05-06-2022 10:32-0500 Body temperature 97 [degF] Treatment Wstr Work Phone: [facility] 05-06-2022 10:32-0500 Diastolic blood pressure 78 mm[Hg] Treatment Wstr Work Phone: [facility] 05-06-2022 10:32-0500 Heart rate 62 /min Treatment Wstr Work Phone: [facility] 05-06-2022 10:32-0500 Systolic blood pressure 130 mm[Hg] Treatment Wstr Work Phone: [facility] 04-15-2022 10:28-0500 Body temperature 97.59 [degF] Treatment Wstr Work Phone: [facility] 04-15-2022 10:28-0500 Diastolic blood pressure 60 mm[Hg] Treatment Wstr Work Phone: [facility] 04-15-2022 10:28-0500 Heart rate 60 /min Treatment Wstr Work Phone: [facility] 04-15-2022 10:28-0500 Systolic blood pressure 128 mm[Hg] Treatment Wstr Work Phone: [facility] 04-14-2022 09:16-0500 Body temperature 97.39 [degF] Caity Cote APRN.OLIVING MACHINE OPERATOR Work Phone: [facility] 04-14-2022 09:16-0500 Body weight 85.28 kg Lab/Port Wstr Work Phone: [facility] 04-14-2022 09:16-0500 Diastolic blood pressure 69 mm[Hg] Caity Cote PULLEY WORKER.OLIVING MACHINE OPERATOR Work Phone: [facility] 04-14-2022 09:16-0500 Heart rate 61 /min Caityleigh Cote PULLEY WORKER.OLIVING MACHINE OPERATOR Work Phone: [facility] 04-14-2022 09:16-0500 Systolic blood pressure 127 mm[Hg] Caity Cote PULLEY WORKER.OLIVING MACHINE OPERATOR Work Phone: [facility] 04-06-2022 08:46-0400 Body height 154.[address] Mitch Mejia Work Phone: [facility] 04-06-2022 08:46-0400 Body mass index (BMI) [Ratio] 35.5 kg/m2 Dr. Mitch Mejia Work Phone: [facility] 04-06-2022 08:46-0400 Body weight 85.[address] Mitch Mejia Work Phone: [facility] 04-06-2022 08:46-0400 Diastolic blood pressure 79 mm[Hg] Dr. Mitch Mejia Work Phone: [facility] 04-06-2022 08:46-0400 Heart rate 58 /min Dr. Mitch Mejia Work Phone: [facility] 04-06-2022 08:46-0400 Respiratory rate 16 /min Dr. Mitch Mejia Work Phone: [facility] 04-06-2022 08:46-0400 SaO2% (BldA) [Mass fraction] 100 % Dr. Mitch Mejia Work Phone: [facility] 04-06-2022 08:46-0400 Systolic blood pressure 140 mm[Hg] Dr. Mitch Mejia Work Phone: [facility] 03-18-2022 11:02-0400 Body temperature 97.59 [degF] Treatment Wstr Work Phone: [facility] 03-18-2022 11:02-0400 Body weight 84.82 kg Treatment Wstr Work Phone: [facility] 03-18-2022 11:02-0400 Diastolic blood pressure 60 mm[Hg] Treatment Wstr Work Phone: [facility] 03-18-2022 11:02-0400 Heart rate 62 /min Treatment Wstr Work Phone: [facility] 03-18-2022 11:02-0400 Systolic blood pressure 112 mm[Hg] Treatment Wstr Work Phone: [facility] 02-25-2022 08:44-0400 Body temperature 98.01 [degF] Treatment Wstr Work Phone: [facility] 02-25-2022 08:44-0400 Diastolic blood pressure 61 mm[Hg] Treatment Wstr Work Phone: [facility] 02-25-2022 08:44-0400 Heart rate 62 /min Treatment Wstr Work Phone: [facility] 02-25-2022 08:44-0400 Systolic blood pressure 120 mm[Hg] Treatment Wstr Work Phone: [facility] 02-24-2022 09:10-0400 Body temperature 98.4 [degF] Caity Cote PULLEY WORKER.OLIVING MACHINE OPERATOR Work Phone: [facility] 02-24-2022 09:10-0400 Body weight 83.46 kg Riviera Cote PULLEY WORKER.OLIVING MACHINE OPERATOR Work Phone: [facility] 02-24-2022 09:10-0400 Diastolic blood pressure 65 mm[Hg] Riviera Cote PULLEY WORKER.OLIVING MACHINE OPERATOR Work Phone: [facility] 02-24-2022 09:10-0400 Heart rate 64 /min Riviera Cote PULLEY WORKER.OLIVING MACHINE OPERATOR Work Phone: [facility] 02-24-2022 09:10-0400 Systolic blood pressure 110 mm[Hg] Riviera Cote PULLEY WORKER.OLIVING MACHINE OPERATOR Work Phone: [facility] 02-04-2022 10:50-0400 Body temperature 98.1 [degF] Treatment Wstr Work Phone: [facility] 02-04-2022 10:50-0400 Diastolic blood pressure 66 mm[Hg] Treatment Wstr Work Phone: [facility] 02-04-2022 10:50-0400 Heart rate 65 /min Treatment Wstr Work Phone: [facility] 02-04-2022 10:50-0400 Respiratory rate 16 /min Treatment Wstr Work Phone: [facility] 02-04-2022 10:50-0400 Systolic blood pressure 127 mm[Hg] Treatment Wstr Work Phone: [facility] 02-03-2022 09:16-0400 Body temperature 98.29 [degF] Rip Riki DO Work Phone: [facility] 02-03-2022 09:16-0400 Body weight 83.23 kg Lab/Port Wstr Work Phone: [facility] 02-03-2022 09:16-0400 Diastolic blood pressure 60 mm[Hg] Rip Riki DO Work Phone: [facility] 02-03-2022 09:16-0400 Heart rate 66 /min Rip Riki DO Work Phone: [facility] 02-03-2022 09:16-0400 Systolic blood pressure 98 mm[Hg] Rip Masci DO Work Phone: [facility] 01-14-2022 08:49-0400 Body temperature 98.01 [degF] Treatment Wstr Work Phone: [facility] 01-14-2022 08:49-0400 Body weight 81.87 kg Treatment Wstr Work Phone: [facility] 01-14-2022 08:49-0400 Diastolic blood pressure 68 mm[Hg] Treatment Wstr Work Phone: [facility] 01-14-2022 08:49-0400 Heart rate 60 /min Treatment Wstr Work Phone: [facility] 01-14-2022 08:49-0400 Systolic blood pressure 134 mm[Hg] Treatment Wstr Work Phone: [facility] 12-24-2021 09:00-0400 Body temperature 97.9 [degF] Treatment Wstr Work Phone: [facility] 12-24-2021 09:00-0400 Diastolic blood pressure 56 mm[Hg] Treatment Wstr Work Phone: [facility] 12-24-2021 09:00-0400 Heart rate 56 /min Treatment Wstr Work Phone: [facility] 12-24-2021 09:00-0400 Respiratory rate 16 /min Treatment Wstr Work Phone: [facility] 12-24-2021 09:00-0400 SaO2% (BldA) [Mass fraction] 96 % Treatment Wstr Work Phone: [facility] 12-24-2021 09:00-0400 Systolic blood pressure 113 mm[Hg] Treatment Wstr Work Phone: [facility] 12-23-2021 09:48-0400 Body temperature 98.1 [degF] Riviera Cote PULLEY WORKER.OLIVING MACHINE OPERATOR Work Phone: [facility] 12-23-2021 09:48-0400 Body weight 82.1 kg Caity Cote PULLEY WORKER.OLIVING MACHINE OPERATOR Work Phone: [facility] 12-23-2021 09:48-0400 Diastolic blood pressure 59 mm[Hg] Caity Cote PULLEY WORKER.OLIVING MACHINE OPERATOR Work Phone: [facility] 12-23-2021 09:48-0400 Heart rate 58 /min Riviera Cote PULLEY WORKER.OLIVING MACHINE OPERATOR Work Phone: [facility] 12-23-2021 09:48-0400 Systolic blood pressure 122 mm[Hg] Riviera Cote PULLEY WORKER.OLIVING MACHINE OPERATOR Work Phone: [facility] 12-23-2021 09:35-0400 Body weight 82.1 kg Lab/Port Wstr Work Phone: [facility] 12-02-2021 11:21-0400 Body temperature 97.11 [degF] Rip Jollyi DO Work Phone: [facility] 12-02-2021 11:21-0400 Diastolic blood pressure 63 mm[Hg] Rip Riki DO Work Phone: [facility] 12-02-2021 11:21-0400 Heart rate 65 /min Rip Riki DO Work Phone: [facility] 12-02-2021 11:21-0400 SaO2% (BldA) [Mass fraction] 97 % Rip Jollyi DO Work Phone: [facility] 12-02-2021 11:21-0400 Systolic blood pressure 126 mm[Hg] Rip Jollyi DO Work Phone: [facility] 12-02-2021 11:00-0400 Body weight 82.56 kg Lab/Port Wstr Work Phone: [facility] 11-12-2021 13:12-0400 Body temperature 97.7 [degF] Treatment Wstr Work Phone: [facility] 11-12-2021 13:12-0400 Diastolic blood pressure 57 mm[Hg] Treatment Wstr Work Phone: [facility] 11-12-2021 13:12-0400 Heart rate 66 /min Treatment Wstr Work Phone: [facility] 11-12-2021 13:12-0400 Respiratory rate 18 /min Treatment Wstr Work Phone: [facility] 11-12-2021 13:12-0400 SaO2% (BldA) [Mass fraction] 98 % Treatment Wstr Work Phone: [facility] 11-12-2021 13:12-0400 Systolic blood pressure 121 mm[Hg] Treatment Wstr Work Phone: [facility] 11-11-2021 10:27-0400 Body temperature 98.1 [degF] Rip Jollyi DO Work Phone: [facility] 11-11-2021 10:27-0400 Body weight 83.46 kg Rip Riki DO Work Phone: [facility] 11-11-2021 10:27-0400 Diastolic blood pressure 68 mm[Hg] Rip Riki DO Work Phone: [facility] 11-11-2021 10:27-0400 Heart rate 60 /min Rip Riki DO Work Phone: [facility] 11-11-2021 10:27-0400 SaO2% (BldA) [Mass fraction] 97 % Rip Jollyi DO Work Phone: [facility] 11-11-2021 10:27-0400 Systolic blood pressure 137 mm[Hg] Rip Jollyi DO Work Phone: [facility] 11-09-2021 13:51-0400 Body temperature 97.2 [degF] Treatment Wstr Work Phone: [facility] 11-09-2021 13:51-0400 Diastolic blood pressure 56 mm[Hg] Treatment Wstr Work Phone: [facility] 11-09-2021 13:51-0400 Heart rate 66 /min Treatment Wstr Work Phone: [facility] 11-09-2021 13:51-0400 Systolic blood pressure 126 mm[Hg] Treatment Wstr Work Phone: [facility] 10-22-2021 09:55-0400 Diastolic blood pressure 62 mm[Hg] Treatment Wstr Work Phone: [facility] 10-22-2021 09:55-0400 Respiratory rate 63 /min Treatment Wstr Work Phone: [facility] 10-22-2021 09:55-0400 Systolic blood pressure 130 mm[Hg] Treatment Wstr Work Phone: [facility] 10-21-2021 09:16-0400 Body temperature 98.4 [degF] Caity Cote APRN.OLIVING MACHINE OPERATOR Work Phone: [facility] 10-21-2021 09:16-0400 Body weight 83.23 kg Caity Cote PULLEY WORKER.OLIVING MACHINE OPERATOR Work Phone: [facility] 10-21-2021 09:16-0400 Diastolic blood pressure 65 mm[Hg] Caity Cote PULLEY WORKER.OLIVING MACHINE OPERATOR Work Phone: [facility] 10-21-2021 09:16-0400 Heart rate 63 /min Caity Cote PULLEY WORKER.OLIVING MACHINE OPERATOR Work Phone: [facility] 10-21-2021 09:16-0400 Systolic blood pressure 120 mm[Hg] Riviera Cote PULLEY WORKER.OLIVING MACHINE OPERATOR Work Phone: [facility] 10-21-2021 09:02-0400 Body weight 83.23 kg Lab/Port Wstr Work Phone: [facility] 10-01-2021 09:00-0400 Body temperature 97.7 [degF] Treatment Wstr Work Phone: [facility] 10-01-2021 09:00-0400 Diastolic blood pressure 59 mm[Hg] Treatment Wstr Work Phone: [facility] 10-01-2021 09:00-0400 Heart rate 66 /min Treatment Wstr Work Phone: [facility] 10-01-2021 09:00-0400 Systolic blood pressure 124 mm[Hg] Treatment Wstr Work Phone: [facility] 09-30-2021 09:46-0400 Body temperature 98.49 [degF] Rip Masci DO Work Phone: [facility] 09-30-2021 09:46-0400 Body weight 84.14 kg Lab/Port Wstr Work Phone: [facility] 09-30-2021 09:46-0400 Diastolic blood pressure 59 mm[Hg] Rip Masci DO Work Phone: [facility] 09-30-2021 09:46-0400 Heart rate 66 /min Rip Masci DO Work Phone: [facility] 09-30-2021 09:46-0400 SaO2% (BldA) [Mass fraction] 97 % Rip Rivers DO Work Phone: [facility] 09-30-2021 09:46-0400 Systolic blood pressure 103 mm[Hg] Rip Rivers DO Work Phone: [facility] 09-15-2021 08:54-0400 Body height 154.[address] Mitch Mejia Work Phone: [facility] Work Phone: 09-15-2021 08:54-0400 Body mass index (BMI) [Ratio] 35.9 kg/m2 Dr. Mitch Mejia Work Phone: [facility] Work Phone: 09-15-2021 08:54-0400 Body weight 86.[address] Mitch Mejia Work Phone: [facility] Work Phone: 09-15-2021 08:54-0400 Diastolic blood pressure 72 mm[Hg] Dr. Mitch Mejia Work Phone: [facility] Work Phone: 09-15-2021 08:54-0400 Heart rate 62 /min Dr. Mitch Mejia Work Phone: [facility] Work Phone: 09-15-2021 08:54-0400 Respiratory rate 16 /min Dr. Mitch Mejia Work Phone: [facility] Work Phone: 09-15-2021 08:54-0400 SaO2% (BldA) [Mass fraction] 94 % Dr. Mitch Mejia Work Phone: [facility] Work Phone: 09-15-2021 08:54-0400 Systolic blood pressure 127 mm[Hg] Dr. Mitch Mejia Work Phone: [facility] Work Phone: 09-15-2021 08:54-0400 Body height 154.[address] Mitch Mejia Work Phone: [facility] Work Phone: 09-15-2021 08:54-0400 Body mass index (BMI) [Ratio] 35.9 kg/m2 Dr. Mitch Mejia Work Phone: [facility] Work Phone: 09-15-2021 08:54-0400 Body weight 86.[address] Mitch Mejia Work Phone: [facility] Work Phone: 09-15-2021 08:54-0400 Diastolic blood pressure 72 mm[Hg] Dr. Mitch Mejia Work Phone: [facility] Work Phone: 09-15-2021 08:54-0400 Heart rate 62 /min Dr. Mitch Mejia Work Phone: [facility] Work Phone: 09-15-2021 08:54-0400 Respiratory rate 16 /min Dr. Mitch Mejia Work Phone: [facility] Work Phone: 09-15-2021 08:54-0400 SaO2% (BldA) [Mass fraction] 94 % Dr. Mitch Mejia Work Phone: [facility] Work Phone: 09-15-2021 08:54-0400 Systolic blood pressure 127 mm[Hg] Dr. Mitch Mejia Work Phone: [facility] Work Phone: 09-10-2021 08:00-0400 Body temperature 97.39 [degF] Treatment Wstr Work Phone: [facility] 09-10-2021 08:00-0400 Diastolic blood pressure 67 mm[Hg] Treatment Wstr Work Phone: [facility] 09-10-2021 08:00-0400 Heart rate 74 /min Treatment Wstr Work Phone: [facility] 09-10-2021 08:00-0400 Systolic blood pressure 142 mm[Hg] Treatment Wstr Work Phone: [facility] 09-02-2021 10:21-0400 Body temperature 98.4 [degF] Rip [employer] DO Work Phone: [facility] 09-02-2021 10:21-0400 Body weight 86.64 kg Rip Masci DO Work Phone: [facility] 09-02-2021 10:21-0400 Diastolic blood pressure 73 mm[Hg] Rip Masci DO Work Phone: [facility] 09-02-2021 10:21-0400 Heart rate 61 /min Rip [employer] DO Work Phone: [facility] 09-02-2021 10:21-0400 SaO2% (BldA) [Mass fraction] 96 % Rip [employer] DO Work Phone: [facility] 09-02-2021 10:21-0400 Systolic blood pressure 120 mm[Hg] Rip [employer] DO Work Phone: [facility] 12-01-2016 15:30-0400 Heart rate 68 /min Beth [facility] Work Phone: 12-01-2016 14:42-0400 BMI (Body Mass Index) 32.32 kg/m2 [facility] Work Phone: 12-01-2016 14:42-0400 BP Diastolic 60 mm[Hg] Beth [facility] Work Phone: 12-01-2016 14:42-0400 BP Systolic 120 mm[Hg] Beth [facility] Work Phone: 12-01-2016 14:42-0400 Height 158.75 cm [facility] Work Phone: 12-01-2016 14:42-0400 Pulse (Heart Rate) 76 /min [facility] Work Phone: 12-01-2016 14:42-0400 Respiratory Rate 20 /min [facility] Work Phone: 12-01-2016 14:42-0400 Weight 81.47 kg [facility] Work Phone: Encounters Encounter Date Encounter Type Care Provider Facility Start: 03-07-2025 End: 03-07-2025 ambulatory RIP RIVERS Facility:[facility] Start: 03-06-2025 ambulatory RUPALI MIRZA Facility:[facility] Start: 03-06-2025 End: 03-06-2025 ambulatory RIP RIVERS Facility:[facility] Start: 03-04-2025 End: 03-04-2025 ambulatory MEENU GARAY Facility:[facility] Start: 02-20-2025 End: 02-20-2025 ambulatory LINDA GARAY Facility:[facility] Start: 02-14-2025 End: 02-14-2025 ambulatory Treatment Rm 6 [facility] Work Phone: Hematology/Oncology Comment on above: Malignant neoplasm o f lower-inner quadrant of right breast of female, estrogen receptor positive (HCC) (Primary Dx); Malignant neoplasm metastatic to lung, unspecified laterality (HCC); Malignant neoplasm metastatic to bone (HCC); HER2-positive carcinoma of breast (HCC) Start: 02-14-2025 End: 02-14-2025 Subsequent hospital visit by physician [facility] Work Phone: Radiology Comment on above: Nontoxic single thyr oid nodule [E04.1] Start: 02-13-2025 End: 02-13-2025 Office outpatient visit 25 minutes Rip Rivers DO Work Phone: Hematology/Oncology Comment on above: Malignant neoplasm o f lower-inner quadrant of right breast of female, estrogen receptor positive (HCC) (Primary Dx); Malignant neoplasm metastatic to bone (HCC); Malignant neoplasm metastatic to both lungs (HCC); HER2-positive carcinoma of breast (HCC); Chemotherapy-induced cardiomyopathy (HCC); Chemotherapy-induced neuropathy (HCC); Nontoxic single thyroid nodule Start: 02-13-2025 End: 02-13-2025 ambulatory Lab/[facility] Work Phone: Hematology/Oncology Comment on above: Malignant neoplasm o f lower-inner quadrant of right breast of female, estrogen receptor positive (HCC); HER2-positive carcinoma of breast (HCC); Malignant neoplasm metastatic to bone (HCC) Start: 02-12-2025 End: 02-20-2025 Radiation Oncology Note Meenu Garay MD Work Phone: Radiation Oncology Comment on above: Treatment Planning Simulation Note Start: 02-12-2025 End: 02-20-2025 Patient encounter procedure Meenu Garay MD Work Phone: Radiation Oncology Comment on above: Malignant neoplasm m etastatic to left lung (HCC) (Primary Dx); Secondary malignant neoplasm of right lung (HCC) Start: 02-12-2025 End: 02-12-2025 ambulatory RUPALI MIRZA Facility:[facility] Start: 02-07-2025 End: 02-07-2025 Refill Rip Rivers DO Work Phone: Hematology/Oncology Comment on above: Refill Request Start: 02-06-2025 End: 02-06-2025 Patient encounter procedure Meenu Garay MD Work Phone: Radiation Oncology Comment on above: Secondary malignant neoplasm of right lung (HCC) (Primary Dx) Start: 02-06-2025 End: 02-06-2025 ambulatory MEENU GARAY Facility:[facility] Start: 02-05-2025 End: 02-06-2025 Refill Rip Rivers DO Work Phone: Hematology/Oncology Comment on above: Refill Request Start: 01-30-2025 End: 01-30-2025 Telephone encounter Rip Rivers DO Work Phone: Hematology/Oncology Comment on above: Results Start: 01-29-2025 ambulatory RIP RIVERS Facility:[facility] Start: 01-29-2025 End: 01-29-2025 Subsequent hospital visit by physician [facility] [place] [facility] Comment on above: Malignant neoplasm m etastatic to bone (HCC) [C79.51] Start: 01-25-2025 End: 01-28-2025 Refill Rip Rivers DO Work Phone: Hematology/Oncology Comment on above: Refill Request Start: 01-24-2025 End: 01-24-2025 ambulatory Treatment Rm 4 [facility] Work Phone: Hematology/Oncology Comment on above: Malignant neoplasm o f lower-inner quadrant of right breast of female, estrogen receptor positive (HCC) (Primary Dx); Malignant neoplasm metastatic to lung, unspecified laterality (HCC); Malignant neoplasm metastatic to bone (HCC); HER2-positive carcinoma of breast (HCC) Start: 01-23-2025 End: 01-23-2025 Patient encounter procedure Caity Cote APRN.CNP Work Phone: Hematology/Oncology Start: 01-23-2025 End: 01-23-2025 ambulatory Lab/[facility] Work Phone: Hematology/Oncology Comment on above: Malignant neoplasm o f lower-inner quadrant of right breast of female, estrogen receptor positive (HCC); HER2-positive carcinoma of breast (HCC); Malignant neoplasm metastatic to bone (HCC) Malignant neoplasm o f lower-inner quadrant of right breast of female, estrogen receptor positive (HCC) (Primary Dx); HER2-positive carcinoma of breast (HCC); Malignant neoplasm metastatic to bone (HCC); 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) Start: 01-18-2025 End: 01-18-2025 Specialty Pharmacy Nallely Lockwood [facility] Comment on above: SPP Oral Oncology/he matology - Medication Refill (Capecitabine 500 mg) Start: 01-03-2025 End: 01-03-2025 ambulatory Treatment Rm 6 [facility] Work Phone: Hematology/Oncology Comment on above: Malignant neoplasm m etastatic to bone (HCC) (Primary Dx); 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); Malignant neoplasm of lower-inner quadrant of right breast of female, estrogen receptor positive (HCC); Malignant neoplasm metastatic to lung, unspecified laterality (HCC); HER2-positive carcinoma of breast (HCC) Start: 01-02-2025 End: 01-02-2025 Office outpatient visit 25 minutes Rip Rivers DO Work Phone: Hematology/Oncology Comment on above: Malignant neoplasm o f lower-inner quadrant of right breast of female, estrogen receptor positive (HCC) (Primary Dx); HER2-positive carcinoma of breast (HCC); Malignant neoplasm metastatic to bone (HCC); Malignant neoplasm metastatic to both lungs (HCC); Chemotherapy-induced cardiomyopathy (HCC); 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); Chemotherapy-induced neuropathy (HCC); Drug rash; History of thyroid nodule Start: 01-02-2025 End: 01-02-2025 ambulatory Lab/[facility] Work Phone: Hematology/Oncology Comment on above: Malignant neoplasm o f lower-inner quadrant of right breast of female, estrogen receptor positive (HCC); HER2-positive carcinoma of breast (HCC); Malignant neoplasm metastatic to bone (HCC) Start: 12-28-2024 End: 12-28-2024 Specialty Pharmacy Nallely Lockwood [facility] Comment on above: SPP Oral Oncology/he matology - Medication Refill (Capecitabine 500 mg) Start: 12-27-2024 End: 12-27-2024 ambulatory Lab/[facility] Work Phone: Hematology/Oncology Comment on above: Malignant neoplasm o f lower-inner quadrant of right breast of female, estrogen receptor positive (HCC) (Primary Dx); HER2-positive carcinoma of breast (HCC); Malignant neoplasm metastatic to bone (HCC); Malignant neoplasm metastatic to both lungs (HCC); Chemotherapy-induced cardiomyopathy (HCC) Start: 12-27-2024 End: 12-27-2024 Subsequent hospital visit by physician [facility] Prep [facility] Cat Scan Comment on above: Malignant neoplasm o f lower-inner quadrant of right breast of female, estrogen receptor positive (HCC) [C50.311, Z17.0] Start: 12-25-2024 End: 12-25-2024 Refill Rip Rivers DO Work Phone: Hematology/Oncology Comment on above: Refill Request Start: 12-19-2024 Non-patient / Non-visit Dr. Mao Of hakeem [facility] Start: 12-19-2024 End: 12-19-[address] Rip Rivers DO Work Phone: -Cardiovascular Services Start: 12-19-2024 End: 12-19-2024 Patient encounter procedure DOCUMENTATION SPEC- Caity Cote -Cardiovascular Services Work Phone: Start: 12-19-2024 End: 12-19-2024 ambulatory [facility] Facility:[facility] Start: 12-13-2024 End: 12-13-2024 ambulatory Treatment Rm 4 [facility] Work Phone: Hematology/Oncology Comment on above: Malignant neoplasm o f lower-inner quadrant of right breast of female, estrogen receptor positive (HCC) (Primary Dx); Malignant neoplasm metastatic to lung, unspecified laterality (HCC); Malignant neoplasm metastatic to bone (HCC); HER2-positive carcinoma of breast (HCC) Start: 12-12-2024 End: 01-31-2025 Telephone encounter Rip Rivers DO Work Phone: Hematology/Oncology Comment on above: AVS 12/12 Start: 12-12-2024 End: 12-12-2024 Patient encounter procedure Caity Cote PULLEY WORKER.OLIVING MACHINE OPERATOR Work Phone: Hematology/Oncology Start: 12-12-2024 End: 12-12-2024 ambulatory Lab/Port [facility] Work Phone: Hematology/Oncology Comment on above: [...] Start: 12-05-2024 End: 12-05-2024 Specialty Pharmacy Nallely Lockwood [facility] Comment on above: SPP Oral Oncology/he matology - Medication Refill (Capecitabine 500 mg) Start: 11-22-2024 End: 11-22-2024 ambulatory Treatment Rm 8 [facility] Work Phone: Hematology/Oncology Comment on above: Malignant neoplasm o f lower-inner quadrant of right breast of female, estrogen receptor positive (HCC) (Primary Dx); Malignant neoplasm metastatic to lung, unspecified laterality (HCC); Malignant neoplasm metastatic to bone (HCC); HER2-positive carcinoma of breast (HCC) Start: 11-21-2024 End: 11-21-2024 Patient encounter procedure Caity Cote OLIVING MACHINE OPERATOR Work Phone: Hematology/Oncology Start: 11-21-2024 End: 11-21-2024 ambulatory Lab/[facility] Work Phone: Hematology/Oncology Comment on above: [...] Start: 11-15-2024 End: 11-15-2024 Specialty Pharmacy Nallely Aguilera [facility] Comment on above: SPP Oral Oncology/he matology - Medication Refill (Capecitabine 500mg) Start: 11-14-2024 End: 11-14-2024 Refill Rip Rivers DO Work Phone: Hematology/Oncology Comment on above: Refill Request Start: 11-09-2024 End: 11-09-2024 Refill Rip Rivers DO Work Phone: Hematology/Oncology Comment on above: Refill Request Start: 11-01-2024 End: 11-01-2024 ambulatory Treatment Rm 4 [facility] Work Phone: Hematology/Oncology Comment on above: Malignant neoplasm o f lower-inner quadrant of right breast of female, estrogen receptor positive (HCC) (Primary Dx); Malignant neoplasm metastatic to lung, unspecified laterality (HCC); Malignant neoplasm metastatic to bone (HCC); HER2-positive carcinoma of breast (HCC) Start: 10-31-2024 End: 10-31-2024 Patient encounter procedure Caity Cote APRN.OLIVING MACHINE OPERATOR Work Phone: Hematology/Oncology Start: 10-31-2024 End: 10-31-2024 ambulatory Lab/Port [facility] Work Phone: Hematology/Oncology Comment on above: [...] (HCC) Start: 10-11-2024 End: 10-11-2024 ambulatory Treatment [address] [facility] Work Phone: Hematology/Oncology Comment on above: Malignant neoplasm o f lower-inner quadrant of right breast of female, estrogen receptor positive (HCC) (Primary Dx); Malignant neoplasm metastatic to lung, unspecified laterality (HCC); Malignant neoplasm metastatic to bone (HCC); HER2-positive carcinoma of breast (HCC); 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) Start: 10-10-2024 End: 10-10-2024 Patient encounter procedure Caity Cote APRN.OLIVING MACHINE OPERATOR Work Phone: Hematology/Oncology Start: 10-10-2024 End: 10-10-2024 ambulatory Lab/[facility] Work Phone: Hematology/Oncology Comment on above: [...] to bone (HCC) Start: 10-08-2024 End: 10-08-2024 Refill Rip Rivers DO Work Phone: Hematology/Oncology Comment on above: Refill Request Start: 10-03-2024 End: 10-03-2024 Patient encounter procedure Quita Hoff Work Phone: Hematology/Oncology Start: 10-03-2024 End: 10-03-2024 ambulatory Lab/[facility] Work Phone: Hematology/Oncology Comment on above: [...] 2024 End: 2024 Assay of hemosiderin, quant Eliot Billingsley MD Work Phone: [facility] Work Phone: Start: 2024 End: 2024 Patient encounter procedure Eliot Billingsley MD Work Phone: [facility] Comment on above: Routine general medi romana examination at health care facility (Primary Dx); Malignant neoplasm metastatic to both lungs; Bronchitis; History of right breast cancer; Heart disease Start: 2024 End: 2024 ambulatory [facility] Ambulatory Start: 2024 End: 2024 Encounter for general adult medical examination without abnormal findings [facility] Ambulatory Start: 09-26-2024 End: 09-26-2024 Telephone encounter Rip Rivers DO Work Phone: Hematology/Oncology Comment on above: Fever Start: 09-26-2024 End: 09-26-2024 ambulatory POORNIMA RADHA Facility:[facility] Start: 09-17-2024 End: 09-17-2024 Specialty Pharmacy Nallely Aguilera [facility] Comment on above: SPP Oral Oncology/he matology - Medication Refill (Capecitabine 500mg) Start: 09-14-2024 End: 09-14-2024 ambulatory [facility] Provider Hematology/Oncology Comment on above: Echo Start: 09-14-2024 End: 09-14-2024 E-mail encounter from caregiver [facility] Provider Hematology/Oncology Start: 09-13-2024 Non-patient / Non-visit [facility]. [facility] Start: 09-13-2024 End: 09-13-[address] Rip Rivers DO Work Phone: [facility] Work Phone: Start: 09-13-2024 End: 09-13-[address] Rip Rivers DO -Cardiovascular Services Work Phone: Start: 09-13-2024 End: 09-13-2024 ambulatory Eliotjose g Billingsley Facility:[facility] Start: 09-06-2024 End: 09-06-2024 ambulatory Treatment Rm 6 [facility] Work Phone: Hematology/Oncology Comment on above: Malignant neoplasm o f lower-inner quadrant of right breast of female, estrogen receptor positive (HCC) (Primary Dx); Malignant neoplasm metastatic to lung, unspecified laterality (HCC); Malignant neoplasm metastatic to bone (HCC); HER2-positive carcinoma of breast (HCC) Start: 09-05-2024 End: 09-05-2024 Patient encounter procedure Caity Cote APRN.OLIVING MACHINE OPERATOR Work Phone: Hematology/Oncology Start: 09-05-2024 End: 09-05-2024 ambulatory Lab/Port [facility] Work Phone: Hematology/Oncology Comment on above: [...] Start: 08-30-2024 End: 08-30-2024 ambulatory Lab/[facility] Work Phone: Hematology/Oncology Comment on above: Malignant neoplasm o f lower-inner quadrant of right breast of female, estrogen receptor positive (HCC) (Primary Dx); Malignant neoplasm metastatic to lung, unspecified laterality (HCC); Malignant neoplasm metastatic to bone (HCC); HER2-positive carcinoma of breast (HCC); Malignant neoplasm metastatic to both lungs (HCC) Start: 08-30-2024 End: 08-30-2024 [facility] Work Phone: Radiology Comment on above: History of thyroid n odule [Z86.39] Malignant neoplasm o f lower-inner quadrant of right breast of female, estrogen receptor positive (HCC) [C50.311, Z17.0] Start: 08-29-2024 End: 08-29-2024 Telephone encounter Rip Rivers DO Work Phone: Hematology/Oncology Comment on above: Appointment Start: 08-27-2024 End: 08-27-2024 Specialty Pharmacy Nallely Lockwood [facility] Comment on above: SPP Oral Oncology/he matology - Medication Refill (Capecitabine 500mg) Start: 08-16-2024 End: 08-16-2024 ambulatory Treatment Rm 4 [facility] Work Phone: Hematology/Oncology Comment on above: [...] nodule Start: 08-15-2024 End: 08-15-2024 [facility]ulatory [facility] Work Phone: Hematology/Oncology Comment on above: [...] Request Start: 07-26-2024 End: 07-26-2024 ambulatory Treatment [address] [facility] Work Phone: Hematology/Oncology Comment on above: Malignant neoplasm o f lower-inner quadrant of right breast of female, estrogen receptor positive (HCC) (Primary Dx); Malignant neoplasm metastatic to lung, unspecified laterality (HCC); Malignant neoplasm metastatic to bone (HCC); HER2-positive carcinoma of breast (HCC) Start: 07-25-2024 End: 07-25-2024 Patient encounter procedure Quita Hoff Work Phone: Hematology/Oncology Start: 07-25-2024 End: 07-25-2024 ambulatory Lab/[facility] Work Phone: Hematology/Oncology Comment on above: [...] encounter Elisha WHARTON Hematology/Oncology Comment on above: [employer] Start: 07-16-2024 End: 07-18-2024 Specialty Pharmacy Nallely Aguilera [facility] Comment on above: SPP Oral Oncology/he matology - Medication Refill (Capecitabine 500mg) Refill Request Start: 07-05-2024 End: 07-05-2024 ambulatory Treatment Rm 4 [facility] Work Phone: Hematology/Oncology Comment on above: [...] End: 07-04-2024 Patient encounter procedure Caity Cote APRN.OLIVING MACHINE OPERATOR Work Phone: Hematology/Oncology Start: 07-04-2024 End: 07-04-2024 ambulatory Lab/[facility] Work Phone: Hematology/Oncology Comment on above: [...] 06-29-2024 End: 06-29-2024 Specialty Pharmacy Lele Tucker [facility] Comment on above: SPP Oral Oncology/he matology - Medication Refill (Capecitabine 500mg) Medication Request Start: 06-14-2024 End: 06-14-2024 ambulatory Treatment Rm 5 [facility] Work Phone: Hematology/Oncology Comment on above: [...] nodule Start: 06-13-2024 End: 06-13-2024 ambulatory Lab/[facility] Work Phone: Hematology/Oncology Comment on above: Malignant neoplasm o f lower-inner quadrant of right breast of female, estrogen receptor positive (HCC); Malignant neoplasm metastatic to lung, unspecified laterality (HCC); Malignant neoplasm metastatic to bone (HCC); HER2-positive carcinoma of breast (HCC); Malignant neoplasm metastatic to both lungs (HCC) Start: 06-04-2024 End: 06-04-2024 Specialty Pharmacy Nallely Aguilera [facility] Comment on above: SPP Oral Oncology/he matology - Medication Refill (Capecitabine) Start: 06-01-2024 End: 06-03-2024 Refill Rip Rivers DO Work Phone: Hematology/Oncology Comment on above: Refill Request Start: 05-28-2024 End: 07-05-2024 Telephone encounter Rip Rivers DO Work Phone: [address] [place] [address] Start: 05-24-2024 End: 05-24-2024 ambulatory Treatment Rm 4 [facility] Work Phone: Hematology/Oncology Comment on above: Malignant neoplasm o f lower-inner quadrant of right breast of female, estrogen receptor positive (HCC) (Primary Dx); Malignant neoplasm metastatic to lung, unspecified laterality (HCC); Malignant neoplasm metastatic to bone (HCC); HER2-positive carcinoma of breast (HCC) Start: 05-23-2024 End: 05-23-2024 Patient encounter procedure Rip Rivers DO Work Phone: Hematology/Oncology Start: 05-23-2024 End: 05-23-2024 ambulatory Lab/Port [facility] Work Phone: Hematology/Oncology Comment on above: [...] thyroid nodule Start: 05-21-2024 End: 05-21-2024 ambulatory [facility] Facility:[facility] Start: 05-14-2024 End: 05-14-2024 Specialty Pharmacy Nallely Lockw[facility] Comment on above: SPP Oral Oncology/he matology - Medication Refill (Capecitabine) Start: 05-04-2024 End: 05-04-2024 ambulatory Treatment Rm 2 [facility] Work Phone: Hematology/Oncology Comment on above: [...] Start: 05-02-2024 End: 05-02-2024 ambulatory Lab/Port [facility] Work Phone: Hematology/Oncology Comment on above: Malignant neoplasm o f lower-inner quadrant of right breast of female, estrogen receptor positive (HCC); Malignant neoplasm metastatic to lung, unspecified laterality (HCC); Malignant neoplasm metastatic to bone (HCC); HER2-positive carcinoma of breast (HCC); Malignant neoplasm metastatic to both lungs (HCC) Start: 04-24-2024 End: 04-24-2024 ambulatory Lab/Port [facility] Work Phone: Hematology/Oncology Comment on above: Malignant neoplasm o f lower-inner quadrant of right breast of female, estrogen receptor positive (HCC) (Primary Dx) Start: 04-24-2024 End: 04-24-2024 Subsequent hospital visit by physician [facility] Cat Scan Comment on above: Malignant neoplasm o f lower-inner quadrant of right breast of female, estrogen receptor positive (HCC) [C50.311, Z17.0] Start: 04-23-2024 End: 04-23-2024 Telephone encounter Rip Rivers DO Work Phone: Hematology/Oncology Comment on above: Appointment Start: 04-20-2024 End: 04-20-2024 Specialty Pharmacy Nallely Aguilera [facility] Comment on above: SPP Oral Oncology/he matology - Medication Refill (Capecitabine ) Start: 04-12-2024 End: 04-12-2024 ambulatory Treatment Rm 7 [facility] Work Phone: Hematology/Oncology Comment on above: Malignant neoplasm o f lower-inner quadrant of right breast of female, estrogen receptor positive (HCC) (Primary Dx); Malignant neoplasm metastatic to lung, unspecified laterality (HCC); Malignant neoplasm metastatic to bone (HCC); HER2-positive carcinoma of breast (HCC); Chemotherapy induced diarrhea Start: 04-11-2024 End: 04-11-2024 Patient encounter procedure Caity Cote OLIVING MACHINE OPERATOR Work Phone: Hematology/Oncology Start: 04-11-2024 End: 04-11-2024 ambulatory Lab/[facility] Work Phone: Hematology/Oncology Comment on above: [...] 03-30-2024 End: 03-30-2024 Specialty Pharmacy Jethro Blackmon [facility] Comment on above: SPP Oral Oncology/he matology - Medication Refill (Xeloda) Start: 03-22-2024 End: 03-22-2024 ambulatory Treatment Rm 9 [facility] Work Phone: Hematology/Oncology Comment on above: Malignant neoplasm o f lower-inner quadrant of right breast of female, estrogen receptor positive (HCC) (Primary Dx); Malignant neoplasm metastatic to lung, unspecified laterality (HCC); Malignant neoplasm metastatic to bone (HCC); HER2-positive carcinoma of breast (HCC) Start: 03-21-2024 End: 03-21-2024 Patient encounter procedure Rip Rivers DO Work Phone: Hematology/Oncology Start: 03-21-2024 End: 03-21-2024 ambulatory Lab/Port [facility] Work Phone: Hematology/Oncology Comment on above: [...] 03-09-2024 End: 03-09-2024 Specialty Pharmacy Lele Tucker [facility] Comment on above: SPP Oral Oncology/he matology - Medication Refill (capecitabine) Start: 02-28-2024 End: 02-28-2024 ambulatory Treatment 4 [facility] Work Phone: Hematology/Oncology Comment on above: Malignant neoplasm o f lower-inner quadrant of right breast of female, estrogen receptor positive (HCC) (Primary Dx); Malignant neoplasm metastatic to lung, unspecified laterality (HCC); Malignant neoplasm metastatic to bone (HCC); HER2-positive carcinoma of breast (HCC) Start: 02-27-2024 End: 02-27-2024 Patient encounter procedure Caity Cote APRN.OLIVING MACHINE OPERATOR Work Phone: Hematology/Oncology Start: 02-27-2024 End: 02-27-2024 ambulatory Lab/[facility] Work Phone: Hematology/Oncology Comment on above: [...] Start: 02-08-2024 End: 02-08-2024 ambulatory Treatment 4 [facility] Work Phone: Hematology/Oncology Comment on above: [...] End: 02-03-2024 Patient encounter procedure Caity Cote EREN.OLIVING MACHINE OPERATOR Work Phone: Hematology/Oncology Start: 02-03-2024 End: 02-03-2024 ambulatory Lab/[facility] Work Phone: Hematology/Oncology Comment on above: [...] 01-26-2024 End: 01-26-2024 Specialty Pharmacy Nallely Aguilera [facility] Comment on above: SPP Oral Oncology/he matology - Medication Refill (Capecitabine ) Start: 01-16-2024 End: 01-16-2024 ambulatory Treatment Rm 6 [facility] Work Phone: Hematology/Oncology Comment on above: [...] Appointment (Hercept in/ ) Start: 01-12-2024 ambulatory [facility] Fac[facility] ty:[facility] Start: 01-12-2024 End: 01-12-2024 ambulatory [facility] Facility:[facility] Start: 01-11-2024 Telephone encounter Rip perez DO Work Phone: Hematology/Oncology Comment on above: Question Start: 01-09-2024 Telephone encounter Carla Seals matology/Oncology Comment on above: Dandy Tender - O ther (Follow-up ) Start: 01-04-2024 End: 01-04-2024 Subsequent hospital visit by physician Lea [facility] ([facility]) Work Phone: Cat Scan Comment on above: Malignant neoplasm o f lower-inner quadrant of right breast of female, estrogen receptor positive (HCC) [C50.311, Z17.0] Start: 01-04-2024 Telephone encounter Rip perez DO Work Phone: Hematology/Oncology Comment on above: Results Start: 01-04-2024 End: 01-04-2024 Subsequent hospital visit by physician Xr [facility] Work Phone: Radiology Comment on above: Malignant neoplasm o f lower-inner quadrant of right breast of female, estrogen receptor positive (HCC) [C50.311, Z17.0] Start: 01-04-2024 End: 01-04-2024 Patient encounter procedure Rip Rivers DO Work Phone: Hematology/Oncology Start: 01-04-2024 End: 01-04-2024 ambulatory Lab/[facility] Work Phone: Hematology/Oncology Comment on above: [...] disease (HCC) Start: 12-30-2023 Specialty Pharmacy Nallely Aguilera [facility] Comment on above: SPP Oral Oncology/he matology - Medication Refill (Capecitabine 500mg) Start: 12-22-2023 End: 12-22-2023 ambulatory Treatment Rm 9 [facility] Work Phone: Hematology/Oncology Comment on above: Malignant neoplasm m etastatic to bone (HCC) (Primary Dx) Start: 12-22-2023 End: 12-22-2023 Subsequent hospital visit by physician [facility] Cat Scan Comment on above: Malignant neoplasm o f lower-inner quadrant of right breast of female, estrogen receptor positive (HCC) [C50.311, Z17.0] Start: 12-21-2023 Telephone encounter Rip perez DO Work Phone: Hematology/Oncology Comment on above: Results Start: 12-15-2023 End: 12-15-2023 ambulatory Treatment Rm 1 [facility] Work Phone: Hematology/Oncology Comment on above: Malignant neoplasm o f lower-inner quadrant of right breast of female, estrogen receptor positive (HCC) (Primary Dx); Malignant neoplasm metastatic to lung, unspecified laterality (HCC); Malignant neoplasm metastatic to bone (HCC); HER2-positive carcinoma of breast (HCC); Chemotherapy-induced cardiomyopathy (HCC); Chemotherapy-induced neuropathy (HCC) Start: 12-14-2023 Telephone encounter Caity bhandari APRN.OLIVING MACHINE OPERATOR Work Phone: Hematology/Oncology Start: 12-14-2023 End: 12-14-2023 Patient encounter procedure Caity Cote APRN.OLIVING MACHINE OPERATOR Work Phone: Hematology/Oncology Start: 12-14-2023 End: 12-14-2023 ambulatory Lab/[facility] Work Phone: Hematology/Oncology Comment on above: [...] neuropathy (HCC) Start: 12-07-2023 Specialty Pharmacy Nallely Aguilera [facility] Comment on above: SPP Oral Oncology/he matology - Medication Refill (Capecitabine 500mg) Start: 11-24-2023 End: 11-24-2023 ambulatory Treatment Rm 6 [facility] Work Phone: Hematology/Oncology Comment on above: Malignant neoplasm m etastatic to bone (HCC) (Primary Dx); Malignant neoplasm of lower-inner quadrant of right breast of female, estrogen receptor positive (HCC); Malignant neoplasm metastatic to lung, unspecified laterality (HCC); HER2-positive carcinoma of breast (HCC) Start: 11-23-2023 End: 11-23-2023 Patient encounter procedure Rip Rivers DO Work Phone: Hematology/Oncology Start: 11-23-2023 End: 11-23-2023 ambulatory Lab/[facility] Work Phone: Hematology/Oncology Comment on above: [...] Almonte RN He matology/Oncology Comment on above: Dandy Tender - O ther (Oral Anti-Cancer Agents Follow-up ) Start: 11-11-2023 End: 11-11-2023 ambulatory Lab/[facility] Work Phone: Hematology/Oncology Comment on above: Malignant neoplasm o f lower-inner quadrant of right breast of female, estrogen receptor positive (HCC); Malignant neoplasm metastatic to lung, unspecified laterality (HCC); Malignant neoplasm metastatic to bone (HCC); HER2-positive carcinoma of breast (HCC) Start: 11-09-2023 Refill Rip Gallardo Work Phone: Hematology/Oncology Comment on above: Refill Request Start: 11-03-2023 End: 11-03-2023 ambulatory Treatment 07 Anderson [facility] Work Phone: Hematology/Oncology Comment on above: Malignant neoplasm o f lower-inner quadrant of right breast of female, estrogen receptor positive (HCC) (Primary Dx); Malignant neoplasm metastatic to lung, unspecified laterality (HCC); Malignant neoplasm metastatic to bone (HCC); HER2-positive carcinoma of breast (HCC) Start: 11-02-2023 End: 11-02-2023 Patient encounter procedure Caity Cote APRN.OLIVING MACHINE OPERATOR Work Phone: Hematology/Oncology Start: 11-02-2023 End: 11-02-2023 ambulatory Lab/[facility] Work Phone: Hematology/Oncology Comment on above: [...] Refill Request Start: 11-01-2023 Specialty Pharmacy Nallely Aguilera [facility] Comment on above: SPP Oral [...] End: 10-13-2023 ambulatory Treatment Rm 1 [facility] Work Phone: Hematology/Oncology Comment on above: Malignant neoplasm o f lower-inner quadrant of right breast of female, estrogen receptor positive (HCC) (Primary Dx); Malignant neoplasm metastatic to lung, unspecified laterality (HCC); Malignant neoplasm metastatic to bone (HCC); HER2-positive carcinoma of breast (HCC) Start: 10-11-2023 End: 10-11-2023 Patient encounter procedure Rip Rivers DO Work Phone: Hematology/Oncology Start: 10-11-2023 End: 10-11-2023 ambulatory Lab/[facility] Work Phone: Hematology/Oncology Comment on above: [...] (Primary Dx) Start: 2023 Refill Caity silverio APRN.OLIVING MACHINE OPERATOR Work Phone: Hematology/Oncology Comment on above: Refill Request Start: 09-22-2023 End: 09-22-2023 ambulatory Treatment Rm 6 [facility] Work Phone: Hematology/Oncology Comment on above: [...] Start: 09-21-2023 End: 09-21-2023 ambulatory Lab/[facility] Work Phone: Hematology/Oncology Comment on above: Malignant neoplasm o f lower-inner quadrant of right breast of female, estrogen receptor positive (HCC); Malignant neoplasm metastatic to bone (HCC); Malignant neoplasm metastatic to lung, unspecified laterality (HCC); Chemotherapy-induced cardiomyopathy (HCC) Start: 09-16-2023 Telephone encounter Carla Almonte RN He matology/Oncology Comment on above: Dandy Tender - O ther (Oral Follow-up ) Start: 09-15-2023 End: 09-15-2023 Subsequent hospital visit by physician [facility] Work Phone: Radiology Comment on above: RUQ pain [R10.11] Start: 09-13-2023 Patient encounter procedure Meenu Garay MD Work Phone: [facility] [employer] Start: 09-13-2023 Radiation Oncology Note Vaughn Garay MD Work Phone: Radiation Oncology Comment on above: Simulation Note Treatment Planning Start: 09-13-2023 End: 09-13-2023 Nursing evaluation of patient and report Nurse Radt [facility] Work Phone: Radiation Oncology Comment on [...] Start: 08-30-2023 End: 08-30-2023 ambulatory Lab/[facility] Work Phone: Hematology/Oncology Comment on above: Malignant neoplasm m etastatic to bone (HCC) (Primary Dx); Malignant neoplasm of lower-inner quadrant of right breast of female, estrogen receptor positive (HCC); Malignant neoplasm metastatic to lung, unspecified laterality (HCC); Chemotherapy-induced cardiomyopathy (HCC) Start: 08-30-2023 Patient encounter procedure Nallely Aguilera [facility] Comment on [...] Hematology/Oncology Comment on above: Appointment Start: 08-22-2023 End: 08-22-2023 Subsequent hospital visit by physician Injection [facility] CT Comment on above: Malignant neoplasm o f lower-inner quadrant of right breast of female, estrogen receptor positive (HCC) [C50.311, Z17.0] Start: 08-16-2023 End: 08-17-2023 Emergency department patient visit Dr. Emma Farrell Work Phone: [facility] Work Phone: Start: 08-11-2023 End: 08-11-2023 ambulatory Treatment Rm 10 [facility] Work Phone: Hematology/Oncology Comment on above: [...] with patient Meenu Garay MD Work Phone: [facility] Start: 08-10-2023 End: 08-10-2023 Office outpatient visit 25 minutes Rip Rivers DO Work Phone: Hematology/Oncology Comment on above: Malignant neoplasm o f lower-inner quadrant of right breast of female, estrogen receptor positive (HCC) (Primary Dx); Malignant neoplasm metastatic to bone (HCC); Malignant neoplasm metastatic to lung, unspecified laterality (HCC); Malignant neoplasm metastatic to both lungs (HCC) Start: 08-10-2023 End: 08-10-2023 ambulatory Lab/[facility] Work Phone: Hematology/Oncology Comment on above: Malignant neoplasm o f lower-inner quadrant of right breast of female, estrogen receptor positive (HCC); Malignant neoplasm metastatic to bone (HCC); Malignant neoplasm metastatic to lung, unspecified laterality (HCC); Chemotherapy-induced cardiomyopathy (HCC) Start: 08-03-2023 Refill Rip Gallardo Work Phone: Hematology/Oncology Comment on above: Refill Request Start: 08-03-2023 End: 08-03-2023 Subsequent hospital visit by physician [facility] ([facility]) Work Phone: Cat Scan Comment on above: Malignant neoplasm m etastatic to left lung (HCC) [C78.02] Start: 07-21-2023 End: 07-21-2023 ambulatory Treatment Rm 4 [facility] Work Phone: Hematology/Oncology Comment on above: Malignant neoplasm m etastatic to bone (HCC) (Primary Dx); Malignant neoplasm metastatic to lung, unspecified laterality (HCC); Malignant neoplasm of lower-inner quadrant of right breast of female, estrogen receptor positive (HCC) (HCC) Start: 07-20-2023 End: 07-20-2023 Patient encounter procedure Caity Cote APRN.OLIVING MACHINE OPERATOR [facility] Start: 07-20-2023 End: 07-20-2023 ambulatory Lab/[facility] Work Phone: Hematology/Oncology Comment on above: [...] End: 06-16-2023 Office outpatient new 45 minutes Emma Farrell DO Work Phone: [facility] Comment on above: Malignant neoplasm m etastatic to both lungs (CMS/HCC) (Primary Dx); Malignant neoplasm metastatic to bone (CMS/HCC); Chemotherapy-induced neuropathy (CMS/HCC); Chemotherapy-induced cardiomyopathy (CMS/HCC); Platelets decreased (CMS/HCC); Primary hypertension; Heart disease Start: 05-27-2023 End: 05-27-[address] Mitch Mejia Work Phone: [facility] Work Phone: Start: 05-25-2023 Non-patient / Non-visit Dr. Montanez Work Phone: [facility] Start: 05-25-2023 End: 05-25-[address] Mitch Mejia Work Phone: [facility] Work Phone: Start: 05-25-2023 End: 05-25-[address] Mitch Mejia Work Phone: [facility]Cardiov[facility] Work Phone: Start: 04-27-2023 End: 04-27-2023 ambulatory Treatment Rm 4 [facility] Work Phone: Hematology/Oncology Comment on above: Malignant neoplasm m etastatic to bone (HCC) (Primary Dx); Malignant neoplasm metastatic to lung, unspecified laterality (HCC); Malignant neoplasm of lower-inner quadrant of right breast of female, estrogen receptor positive (HCC) Start: 04-26-2023 End: 04-26-2023 Patient encounter procedure Rip Rivers DO Work Phone: [facility] [employer] Start: 04-26-2023 End: 04-26-2023 ambulatory Lab/[facility] Work Phone: Hematology/Oncology Comment on above: [...] Start: 04-06-2023 End: 04-06-2023 ambulatory Caity Cote APRN.OLIVING MACHINE OPERATOR Work Phone: Hematology/Oncology Comment on above: Malignant neoplasm o f lower-inner quadrant of right breast of female, estrogen receptor positive (HCC) (Primary Dx); Malignant neoplasm metastatic to bone (HCC); Malignant neoplasm metastatic to lung, unspecified laterality (HCC) Start: 04-06-2023 End: 04-06-2023 Patient encounter procedure Caity Cote APRN.OLIVING MACHINE OPERATOR Work Phone: [facility] [employer] Start: 03-30-2023 End: 03-30-2023 ambulatory Meenu Garay MD Work Phone: Radiation Oncology Comment on above: Malignant neoplasm m etastatic to left lung (HCC) (Primary Dx) Start: 03-30-2023 End: 03-30-2023 Telemedicine consultation with patient Meenu Garay MD, MD Work Phone: [facility] Start: 03-30-2023 Telephone encounter Meenu Heredia MD Work Phone: Radiation Oncology Comment on above: Future Appointment Start: 03-24-2023 Telephone encounter Rip perez DO Work Phone: Hematology/Oncology Comment on above: Results Start: 03-23-2023 End: 03-23-2023 Subsequent hospital visit by physician [facility] Work Phone: Radiology Comment on above: Multiple thyroid nod ules [E04.2] Start: 03-17-2023 End: 03-17-2023 ambulatory Treatment Rm 8 [facility] Work Phone: Hematology/Oncology Comment on above: Malignant neoplasm m etastatic to bone (HCC) (Primary Dx); Malignant neoplasm metastatic to lung, unspecified laterality (HCC); Malignant neoplasm of lower-inner quadrant of right breast of female, estrogen receptor positive (HCC) Start: 03-16-2023 End: 03-16-2023 ambulatory Lab/[facility] Work Phone: Hematology/Oncology Comment on above: Malignant neoplasm m etastatic to bone (HCC) (Primary Dx); Malignant neoplasm of lower-inner quadrant of right breast of female, estrogen receptor positive (HCC) ; Malignant neoplasm metastatic to lung, unspecified laterality (HCC); Chemotherapy-induced cardiomyopathy (HCC) Start: 03-11-2023 End: 03-11-2023 Subsequent hospital visit by physician [facility] ([facility]) Work Phone: Cat Scan Comment on above: Malignant neoplasm m etastatic to bone (HCC) [C79.51] Start: 02-23-2023 End: 02-23-2023 Patient encounter procedure Rip Rivers DO Work Phone: [facility] Comment on above: Malignant neoplasm m etastatic to left lung (HCC) (Primary Dx) Start: 02-23-2023 End: 02-23-2023 ambulatory Rip A Masci DO Work Phone: Hematology/Oncology Comment on above: Malignant neoplasm m etastatic to bone (HCC) (Primary Dx) Malignant neoplasm o f lower-inner quadrant of right breast of female, estrogen receptor positive (HCC); Malignant neoplasm metastatic to bone (HCC); Malignant neoplasm metastatic to lung, unspecified laterality (HCC); Chemotherapy-induced cardiomyopathy (HCC) Start: 02-17-2023 Non-patient / Non-visit Dr. Montanez Work Phone: [facility] Work Phone: Start: 02-16-2023 End: 02-17-2023 Evaluation and management of inpatient Dr. Mitch Mejia Work Phone: [facility]-Progressive Care Unit Work Phone: Start: 02-16-2023 End: 02-17-[address] Mitch Mejia Work Phone: [facility] Work Phone: Start: 02-16-2023 Telephone encounter Meenu Heredia MD Work Phone: Radiation Oncology Comment on above: symptoms Start: 02-09-2023 Patient encounter procedure Meenu Garay MD, MD Work Phone: [facility] Start: 02-09-2023 Radiation Oncology Note Vaughn Garay MD Work Phone: Radiation Oncology Comment on above: Treatment Planning Simulation Note Start: 02-09-2023 End: 02-09-2023 Nursing evaluation of patient and report Nurse Radt [facility] Work Phone: Radiation Oncology Comment on [...] Dx) Start: 02-02-2023 End: 02-02-2023 ambulatory Lab/[facility] Work Phone: Hematology/Oncology Comment on above: Malignant neoplasm o f lower-inner quadrant of right breast of female, estrogen receptor positive (HCC); Malignant neoplasm metastatic to bone (HCC); Malignant neoplasm metastatic to lung, unspecified laterality (HCC); Chemotherapy-induced cardiomyopathy (HCC) Start: 01-28-2023 Non-patient / Non-visit Dr. Montanez Work Phone: [facility] Start: 01-28-2023 End: 01-28-[address] Mitch Mejia Work Phone: [facility] Work Phone: Start: 01-28-2023 End: 01-28-[address] Mitch Mejia Work Phone: [facility]Cardiov[facility] Work Phone: Start: 01-26-2023 End: 01-26-2023 Subsequent hospital visit by physician [facility] ([facility]) Work Phone: Cat Scan Comment on above: Malignant neoplasm o f lower-inner quadrant of right breast of female, estrogen receptor positive (HCC) [C50.311, Z17.0] Start: 01-13-2023 End: 01-13-2023 ambulatory Treatment Rm 4 [facility] Work Phone: Hematology/Oncology Comment on above: Malignant neoplasm m etastatic to bone (HCC) (Primary Dx); Malignant neoplasm metastatic to lung, unspecified laterality (HCC); Malignant neoplasm of lower-inner quadrant of right breast of female, estrogen receptor positive (HCC); Chemotherapy induced diarrhea Start: 01-12-2023 End: 01-12-2023 Patient encounter procedure Rip Rivers DO Work Phone: [facility] [place] Start: 01-12-2023 End: 01-12-2023 ambulatory Lab/[facility] Work Phone: Hematology/Oncology Comment on above: [...] encounter procedure Rip Rivers DO Work Phone: [facility] [employer] Start: 12-02-2022 End: 12-02-2022 ambulatory Treatment Rm 10 [facility] Work Phone: Hematology/Oncology Comment on above: Malignant neoplasm m etastatic to bone (HCC) (Primary Dx); Malignant neoplasm metastatic to lung, unspecified laterality (HCC); Malignant neoplasm of lower-inner quadrant of right breast of female, estrogen receptor positive (HCC) Start: 12-01-2022 End: 12-01-2022 Patient encounter procedure Rip Rivers DO Work Phone: [facility] [employer] Start: 12-01-2022 End: 12-01-2022 ambulatory Lab/[facility] Work Phone: Hematology/Oncology Comment on above: [...] encounter procedure Dr. Mitch Mejia Work Phone: [facility] Work Phone: Start: 11-11-2022 Chart abstracting Ranjana Burgos RN Hematology/Oncology Comment on above: Research (Consent CA REVIVE) Start: 11-11-2022 End: 11-11-2022 ambulatory Treatment Rm 5 [facility] Work Phone: Hematology/Oncology Comment on above: Malignant neoplasm m etastatic to bone (HCC) (Primary Dx); Malignant neoplasm metastatic to lung, unspecified laterality (HCC); Malignant neoplasm of lower-inner quadrant of right breast of female, estrogen receptor positive (HCC) Start: 11-10-2022 End: 11-10-2022 Subsequent hospital visit by physician [facility] Work Phone: Radiology Comment on above: Chronic left sacroil iac pain [M53.3, G89.29] Start: 11-10-2022 End: 11-10-2022 Patient encounter procedure Rip Rivers DO Work Phone: [facility] [employer] Start: 11-10-2022 End: 11-10-2022 ambulatory Lab/[facility] Work Phone: Hematology/Oncology Comment on above: [...] Non-patient / Non-visit Dr. Montanez Work Phone: [facility] Start: 11-03-2022 End: 11-03-[address] Mitch Mejia Work Phone: [facility] Work Phone: Start: 10-20-2022 End: 10-20-2022 ambulatory Rip Rivers DO Work Phone: Hematology/Oncology Comment on above: Malignant neoplasm o f lower-inner quadrant of right breast of female, estrogen receptor positive (HCC) (Primary Dx); Malignant neoplasm metastatic to bone (HCC); Malignant neoplasm metastatic to both lungs (HCC); Chemotherapy-induced cardiomyopathy (HCC) Start: 10-20-2022 End: 10-20-2022 Patient encounter procedure Rip Rivers DO Work Phone: [facility] Start: 10-18-2022 End: 10-18-2022 ambulatory Lab/[facility] Work Phone: Hematology/Oncology Comment on above: Malignant neoplasm m etastatic to lung, unspecified laterality (HCC); Malignant neoplasm metastatic to bone (HCC); Malignant neoplasm of lower-inner quadrant of right breast of female, estrogen receptor positive (HCC) Start: 10-18-2022 End: 10-18-2022 Subsequent hospital visit by physician [facility] ([facility]) Work Phone: Cat Scan Comment on above: Malignant neoplasm o f lower-inner quadrant of right breast of female, estrogen receptor positive (HCC) [C50.311, Z17.0] Start: 09-30-2022 End: 09-30-2022 ambulatory Treatment Rm 9 [facility] Work Phone: Hematology/Oncology Comment on above: Malignant neoplasm m etastatic to lung, unspecified laterality (HCC) (Primary Dx); Malignant neoplasm metastatic to bone (HCC); Malignant neoplasm of lower-inner quadrant of right breast of female, estrogen receptor positive (HCC) Start: 09-29-2022 Refill Rip Gallardo Work Phone: Hematology/Oncology Comment on above: Refill Request Start: 09-22-2022 End: 09-22-2022 Subsequent hospital visit by physician Diagnostic Mammo [facility] Mammogram Start: 09-09-2022 End: 09-09-2022 ambulatory Treatment Rm 13 [facility] Work Phone: Hematology/Oncology Comment on above: Malignant neoplasm m etastatic to bone (HCC) (Primary Dx); Malignant neoplasm metastatic to lung, unspecified laterality (HCC); Malignant neoplasm of lower-inner quadrant of right breast of female, estrogen receptor positive (HCC) Start: 09-08-2022 End: 09-08-2022 Patient encounter procedure Rip Rivers DO Work Phone: [facility] [place] Start: 09-08-2022 End: 09-08-2022 ambulatory Lab/[facility] Work Phone: Hematology/Oncology Comment on above: [...] 08-24-2022 Documentation procedure Mammog damaris Coordinator [facility] Start: 08-24-2022 Letter encounter Mammography Coordinator [facility] Department Start: 08-24-2022 Telephone encounter Rip perez DO Work Phone: Hematology/Oncology Comment on above: Results (Screening m ammogram) Start: 08-23-2022 End: 08-23-2022 Subsequent hospital visit by physician Screen Mammo [facility] Mammogram Comment on above: Encounter for [...] encounter procedure Rip Rivers DO Work Phone: [facility] [employer] Start: 07-29-2022 Telephone encounter Rip perez DO Work Phone: Hematology/Oncology Comment on above: Results (CTs) Start: 07-29-2022 End: 07-29-2022 ambulatory Treatment Rm 13 [facility] Work Phone: Hematology/Oncology Comment on above: [...] End: 07-29-2022 Patient encounter procedure Caity Cote APRN.OLIVING MACHINE OPERATOR Work Phone: [facility] [employer] Start: 07-27-2022 End: 07-27-2022 Subsequent hospital visit by physician Ct Prep [facility] Cat Scan Comment on above: Malignant neoplasm o f lower-inner quadrant of right breast of female, estrogen receptor positive (HCC) [C50.311, Z17.0] Start: 07-08-2022 End: 07-08-2022 ambulatory Treatment Rm 13 [facility] Work Phone: Hematology/Oncology Comment on above: Bone metastases (HCC ) (Primary Dx); Malignant neoplasm metastatic to lung, unspecified laterality (HCC); Malignant neoplasm of lower-inner quadrant of right breast of female, estrogen receptor positive (HCC) Start: 07-06-2022 End: 07-06-2022 Patient encounter procedure Rip Rivers DO Work Phone: [facility] [place] Start: 07-06-2022 End: 07-06-2022 ambulatory Lab/[facility] Work Phone: Hematology/Oncology Comment on above: [...] Non-patient / Non-visit Dr. Montanez Work Phone: [facility] Start: 06-25-2022 End: 06-25-[address] Mitch Mejia Work Phone: [facility] Work Phone: Start: 06-25-2022 End: 06-25-[address] Mitch Mejia Work Phone: [facility] Start: 06-17-2022 End: 06-17-2022 ambulatory Treatment Rm 5 [facility] Work Phone: Hematology/Oncology Comment on above: Skin, metastatic can cer to (HCC) (Primary Dx); Bone metastases (HCC); Malignant neoplasm metastatic to lung, unspecified laterality (HCC); Malignant neoplasm of lower-inner quadrant of right breast of female, estrogen receptor positive (HCC) Start: 06-15-2022 End: 06-15-2022 Patient encounter procedure Caity Cote APRN.OLIVING MACHINE OPERATOR Work Phone: [facility] Start: 06-15-2022 End: 06-15-2022 ambulatory Lab/[facility] Work Phone: Hematology/Oncology Comment on above: [...] Work Phone: Hematology/Oncology Comment on above: handicapp murphy re gerhard Start: 05-27-2022 End: 05-27-2022 ambulatory Treatment Rm 5 [facility] Work Phone: Hematology/Oncology Comment on above: [...] encounter procedure Rip Rivers DO Work Phone: [facility] [employer] Start: 05-25-2022 End: 05-25-2022 ambulatory Lab/[facility] Work Phone: Hematology/Oncology Comment on above: [...] lungs (HCC) Start: 05-21-2022 Refill Caity silverio APRN.CNP Work Phone: Hematology/Oncology Comment on above: Refill Request Start: 05-10-2022 Refill Rip Gallardo Work Phone: Hematology/Oncology Comment on above: Refill Request Start: 05-06-2022 End: 05-06-2022 ambulatory Treatment Rm 5 [facility] Work Phone: Hematology/Oncology Comment on above: Malignant neoplasm m etastatic to lung, unspecified laterality (HCC) (Primary Dx); Bone metastases (HCC); Malignant neoplasm of lower-inner quadrant of right breast of female, estrogen receptor positive (HCC); Chemotherapy induced diarrhea Start: 04-26-2022 End: 04-26-2022 ambulatory Lab/[facility] Work Phone: Hematology/Oncology Comment on above: Malignant neoplasm m etastatic to lung, unspecified laterality (HCC) (Primary Dx) Start: 04-26-2022 End: 04-26-2022 Subsequent hospital visit by physician Ct Prep [facility] Cat Scan Comment on above: Malignant neoplasm o f lower-inner quadrant of right breast of female, estrogen receptor positive (HCC) [C50.311, Z17.0] Start: 04-22-2022 Non-patient / Non-visit Dr. Montanez Work Phone: [facility] Start: 04-22-2022 End: 04-22-[address] Mitch Mejia Work Phone: [facility] Work Phone: Start: 04-22-2022 End: 04-22-[address] Mitch Mejia Work Phone: [facility] Start: 04-19-2022 Telephone encounter Caity bhandari APRN.OLIVING MACHINE OPERATOR Work Phone: Hematology/Oncology Comment on above: Electronic Communica tion Start: 04-15-2022 End: 04-15-2022 ambulatory Treatment Rm 5 [facility] Work Phone: Hematology/Oncology Comment on above: Bone metastases (HCC ) (Primary Dx); Malignant neoplasm metastatic to lung, unspecified laterality (HCC); Malignant neoplasm of lower-inner quadrant of right breast of female, estrogen receptor positive (HCC) Start: 04-14-2022 Telephone encounter Rip perez DO Work Phone: Hematology/Oncology Comment on above: AVS Start: 04-14-2022 End: 04-14-2022 Patient encounter procedure Caity Cote APRN.OLIVING MACHINE OPERATOR Work Phone: [facility] [place] Start: 04-14-2022 End: 04-14-2022 ambulatory Lab/Port [facility] Work Phone: Hematology/Oncology Comment on above: [...] encounter procedure Dr. Mitch Mejia Work Phone: [facility] Start: 03-18-2022 End: 03-18-2022 ambulatory Treatment Rm 5 [facility] Work Phone: Hematology/Oncology Comment on above: Malignant neoplasm m etastatic to lung, unspecified laterality (HCC) (Primary Dx); Bone metastases (HCC); Malignant neoplasm of lower-inner quadrant of right breast of female, estrogen receptor positive (HCC) Start: 03-01-2022 Telephone encounter Rip perez DO Work Phone: Hematology/Oncology Comment on above: Patient Update Start: 02-25-2022 End: 02-25-2022 ambulatory Treatment Rm 8 [facility] Work Phone: Hematology/Oncology Comment on above: Bone metastases (HCC ) (Primary Dx); Malignant neoplasm metastatic to lung, unspecified laterality (HCC); Malignant neoplasm of lower-inner quadrant of right breast of female, estrogen receptor positive (HCC) Start: 02-24-2022 End: 02-24-2022 Patient encounter procedure Caity Cote APRN.OLIVING MACHINE OPERATOR Work Phone: [facility] Start: 02-24-2022 End: 02-24-2022 ambulatory Lab/[facility] Work Phone: Hematology/Oncology Comment on above: [...] End: 02-04-2022 ambulatory Treatment Rm 5 [facility] Work Phone: Hematology/Oncology Comment on above: Bone metastases (HCC ) (Primary Dx); Malignant neoplasm metastatic to lung, unspecified laterality (HCC); Malignant neoplasm of lower-inner quadrant of right breast of female, estrogen receptor positive (HCC); Chemotherapy induced diarrhea Start: 02-03-2022 Refill Rip Gallardo Work Phone: Hematology/Oncology Comment on above: Refill Request Start: 02-03-2022 End: 02-03-2022 Patient encounter procedure Rip Rivers DO Work Phone: [facility] Start: 02-03-2022 End: 02-03-2022 ambulatory Lab/[facility] Work Phone: Hematology/Oncology Comment on above: [...] End: 01-14-2022 ambulatory Treatment Rm 9 [facility] Work Phone: Hematology/Oncology Comment on above: Bone metastases (HCC ) (Primary Dx); Malignant neoplasm metastatic to lung, unspecified laterality (HCC); Malignant neoplasm of lower-inner quadrant of right breast of female, estrogen receptor positive (HCC) Start: 01-08-2022 Non-patient / Non-visit Dr. Montanez Work Phone: [facility] Start: 01-08-2022 End: 01-08-[address] Mitch Mejia Work Phone: [facility] Start: 01-07-2022 Telephone encounter Rip perez DO Work Phone: Hematology/Oncology Comment on above: Orders Start: 01-07-2022 End: 01-07-2022 ambulatory Lab/[facility] Work Phone: Hematology/Oncology Comment on above: Malignant neoplasm m etastatic to both lungs (HCC) (Primary Dx); Malignant neoplasm metastatic to lung, unspecified laterality (HCC); Bone metastases (HCC); Malignant neoplasm of lower-inner quadrant of right breast of female, estrogen receptor positive (HCC) Start: 01-07-2022 End: 01-07-2022 Subsequent hospital visit by physician [facility] Cat Scan Comment on above: Malignant neoplasm o f lower-inner quadrant of right breast of female, estrogen receptor positive (HCC) [C50.311, Z17.0] Start: 12-25-2021 Telephone encounter Rip perez DO Work Phone: Hematology/Oncology Comment on above: Patient Question Start: 12-24-2021 Telephone encounter Caity bhandari APRN.OLIVING MACHINE OPERATOR Work Phone: Hematology/Oncology Comment on above: Orders Start: 12-24-2021 End: 12-24-2021 ambulatory Treatment 8 [facility] Work Phone: Hematology/Oncology Comment on above: Bone metastases (HCC ) (Primary Dx); Malignant neoplasm metastatic to lung, unspecified laterality (HCC); Malignant neoplasm of lower-inner quadrant of right breast of female, estrogen receptor positive (HCC) Start: 12-23-2021 End: 12-23-2021 Patient encounter procedure Caity Cote PULLEY WORKER.OLIVING MACHINE OPERATOR Work Phone: [facility] [employer] Start: 12-23-2021 End: 12-23-2021 ambulatory Lab/[facility] Work Phone: Hematology/Oncology Comment on above: [...] encounter procedure Rip Rivers DO Work Phone: [facility] [employer] Start: 12-02-2021 End: 12-02-2021 ambulatory Lab/[facility] Work Phone: Hematology/Oncology Comment on above: [...] End: 11-12-2021 ambulatory Treatment Rm 2 [facility] Work Phone: Hematology/Oncology Comment on above: [...] procedure Rip Rivers DO Work Phone: [facility] [place] Start: 11-09-2021 End: 11-09-2021 ambulatory Treatment Rm 6 [facility] [employer] Work Phone: Hematology/Oncology Comment on above: Bone metastases (HCC ) (Primary Dx); Chemotherapy induced diarrhea Start: 11-06-2021 End: 11-06-2021 ambulatory Lab/Port [facility] [employer] Work Phone: Hematology/Oncology Comment on above: Malignant neoplasm m etastatic to lung, unspecified laterality (HCC); Bone metastases (HCC); Malignant neoplasm of lower-inner quadrant of right breast of female, estrogen receptor positive (HCC) Start: 11-06-2021 End: 11-06-2021 Subsequent hospital visit by physician [facility] [employer] Work Phone: Cat Scan Comment on above: Malignant neoplasm o f lower-inner quadrant of right breast of female, estrogen receptor positive (HCC) [C50.311, Z17.0] Start: 10-27-2021 Non-patient / Non-visit Dr. Montanez Work Phone: [facility] Start: 10-27-2021 End: 10-27-[address] Mitch Mejia Work Phone: [facility] Start: 10-22-2021 End: 10-22-2021 ambulatory Treatment Rm 12 [facility] Work Phone: Hematology/Oncology Comment on above: Bone metastases (HCC ) (Primary Dx); Malignant neoplasm metastatic to lung, unspecified laterality (HCC); Malignant neoplasm of lower-inner quadrant of right breast of female, estrogen receptor positive (HCC) Start: 10-21-2021 Telephone encounter Caity bhandari APRN.OLIVING MACHINE OPERATOR Work Phone: Hematology/Oncology Comment on above: Orders Start: 10-21-2021 End: 10-21-2021 Patient encounter procedure Caity Cote APRN.OLIVING MACHINE OPERATOR Work Phone: [facility] [place] Start: 10-21-2021 End: 10-21-2021 ambulatory Lab/Port [facility] Work Phone: Hematology/Oncology Comment on above: [...] 10-01-2021 End: 10-01-2021 ambulatory Treatment Rm 9 [facility] Work Phone: Hematology/Oncology Comment on above: Bone metastases (HCC ) (Primary Dx); Malignant neoplasm metastatic to lung, unspecified laterality (HCC); Malignant neoplasm of lower-inner quadrant of right breast of female, estrogen receptor positive (HCC) Start: 09-30-2021 End: 09-30-2021 Patient encounter procedure Rip Rivers DO Work Phone: [facility] Start: 09-30-2021 End: 09-30-2021 ambulatory Lab/[facility] Work Phone: Hematology/Oncology Comment on above: [...] procedure Dr. Mitch Mejia Work Phone: [facility] Start: 09-11-2021 Telephone encounter Carla Almonte RN He matology/Oncology Comment on above: Dandy Tender - [facility] ther (C1D1 Post Treatment Call ) Start: 09-10-2021 End: 09-10-2021 ambulatory Treatment Rm 3 [facility] Work Phone: Hematology/Oncology Comment on above: Malignant neoplasm m etastatic to both lungs (HCC) (Primary Dx); Bone metastases (HCC); Malignant neoplasm metastatic to lung, unspecified laterality (HCC); Malignant neoplasm of lower-inner quadrant of right breast of female, estrogen receptor positive (HCC) Start: 09-09-2021 End: 09-09-[address] Work Phone: [facility] Start: 09-09-2021 End: 09-09-[address] therapy [address] RD Work Phone: Radiation Oncology Comment on above: Nutrition Assessment Start: 09-08-2021 Telephone encounter Malini Schwab Hematology/Oncology Comment on above: Social Work Services Start: 09-07-2021 End: 09-07-2021 Social Work Malini WHARTON Hematology/Oncology Comment on above: Thyroid nodule [E04. 1] Start: 09-04-2021 Telephone encounter Financial Navigator [facility] Work Phone: Hematology/Oncology Comment on above: Benefits Investigati on Start: 09-03-2021 Telephone encounter Malini Schwab Hematology/Oncology Comment on above: Psychosocial Assessm ent [employer] T[employer] - [facility] [employer] (Nutrition Consult/Treatment Question ) Start: 09-03-2021 End: 09-03-2021 community planning technician [facility] Work Phone: Hematology/Oncology Comment on above: Malignant neoplasm o f lower-inner quadrant of right female breast, unspecified estrogen receptor status (HCC) (Primary Dx) Start: 09-02-2021 Telephone encounter Carla Almonte RN He matology/Oncology Comment on above: Dandy Tender - O ther (Follow-up/US ) Start: 09-02-2021 End: 09-02-2021 Patient encounter procedure Rip Rivers DO Work Phone: [facility] Start: 09-02-2021 End: 09-02-2021 ambulatory Rip Rivers [...] Non-patient / Non-visit Dr. Montanez Work Phone: [facility] Start: 07-13-2021 End: 07-13-[address] Mitch Mejia Work Phone: [facility] Procedures Date Procedure Procedure Detail Performing Clinician Start: 02-13-2025 CBC + DIFF Rip A Mas ci DO Work Phone: Start: 02-13-2025 Comprehensive metabo lic panel Rip Borja Masci DO Work Phone: Start: 01-29-[address] atten uation skull base mid-thigh Rip Borja Masci DO Work Phone: Start: 01-29-2025 Gluc bld gluc mntr d ev cleared fda spec home use [facility] Provider Start: 01-23-2025 Blood count complete auto&auto difrntl wbc Rip Borja Masci DO Work Phone: Start: 01-02-2025 Blood count complete auto&auto difrntl wbc Rip Borja Masci DO Work Phone: Start: 12-27-2024 CREATININE BLD [place] Ca rpenter PULLEY WORKER.OLIVING MACHINE OPERATOR Work Phone: Start: 12-12-2024 Blood count complete auto&auto difrntl wbc Rip Borja Masci DO Work Phone: Start: 11-21-2024 Blood count complete auto&auto difrntl wbc Rip Borja Masci DO Work Phone: Start: 10-31-2024 Blood count complete auto&auto difrntl wbc Rip Borja Masci DO Work Phone: Start: 10-10-2024 Blood count complete auto&auto difrntl wbc Rip Borja Masci DO Work Phone: Start: 10-03-2024 Blood count complete auto&auto difrntl wbc Rip Borja Masci DO Work Phone: Start: 09-05-2024 Blood count complete auto&auto difrntl wbc Rip Borja Masci DO Work Phone: Start: 08-30-2024 Blood count complete auto&auto difrntl wbc Rip Borja Masci DO Work Phone: Start: 08-15-2024 Blood count complete auto&auto difrntl wbc Rip Borja Masci DO Work Phone: Start: 07-25-2024 Blood count complete auto&auto difrntl wbc Rip Borja Masci DO Work Phone: Start: 07-04-2024 Blood count complete auto&auto difrntl wbc Rip Borja Masci DO Work Phone: Start: 06-13-2024 Blood count complete auto&auto difrntl wbc Rip Borja Masci DO Work Phone: Start: 05-23-2024 Blood count complete auto&auto difrntl wbc Rip Borja Masci DO Work Phone: Start: 05-02-2024 Blood [...] DO Work Phone: Start: 12-15-2023 CREATININE BLD [place] Ca rpenter PULLEY WORKER.OLIVING MACHINE OPERATOR Work Phone: Start: 12-14-2023 Blood count complete auto&auto difrntl wbc Rip Borja Masci DO Work Phone: Start: 11-23-2023 Blood count complete auto&auto difrntl wbc Rip A Masci DO Work Phone: Start: 11-11-2023 Blood count complete auto&auto difrntl wbc Rip A Masci DO Work Phone: Start: 11-02-2023 Blood count complete auto&auto difrntl wbc Rip A Masci DO Work Phone: Start: 10-11-2023 Blood count complete auto&auto difrntl wbc Rip A Masci DO Work Phone: Start: 09-21-2023 Blood count complete auto&auto difrntl wbc Rip A Masci DO Work Phone: Start: 08-30-2023 Blood count complete auto&auto difrntl wbc Rip A Masci DO Work Phone: Start: 08-16-2023 Computed tomography of abdomen and pelvis with intravenous contrast Dr. Emma Farrell Work Phone: Start: 08-10-2023 Blood count complete auto&auto difrntl wbc Rip A Masci DO Work Phone: Start: 07-20-2023 Blood count complete auto&auto difrntl wbc Rip A Masci DO Work Phone: Start: 04-26-2023 Blood count complete auto&auto difrntl wbc Rip A Masci DO Work Phone: Start: 03-23-2023 Us soft tissue head & neck real time imge docm Rip A Masci DO Work Phone: Start: 03-16-2023 Blood count complete auto&auto difrntl wbc Rip A Masci DO Work Phone: Start: 03-11-2023 Ct thorax w/o contra st material Rip A Masci DO Work Phone: Start: 02-23-2023 Blood count complete auto&auto difrntl wbc Rip A Masci DO Work Phone: Start: 02-17-2023 Plain [...] Rip A Masci DO Work Phone: Start: 01-26-2023 Ct abdomen & pelvis w/contrast material Rip A Masci DO Work Phone: Start: 01-26-2023 Ct thorax w/contrast material Rip A Masci DO Work Phone: Start: 01-12-2023 Blood count complete auto&auto difrntl wbc Rip A Masci DO Work Phone: Start: 12-01-2022 Blood count complete auto&auto difrntl wbc Rip A Masci DO Work Phone: Start: 11-10-2022 Radex spine lumbosac ral 2/3 views Rip A Masci DO Work Phone: Start: 11-10-2022 Blood count complete auto&auto difrntl wbc Rip A Masci DO Work Phone: Start: 10-18-2022 Ct abdomen & pelvis w/contrast material Rip A Masci DO Work Phone: Start: 10-18-2022 Ct thorax w/contrast material Rip A Masci DO Work Phone: Start: 10-18-2022 Blood count complete auto&auto difrntl wbc Rip A Masci DO Work Phone: Start: 09-30-2022 Blood count complete auto&auto difrntl wbc Rip A Masci DO Work Phone: Start: 09-22-2022 End: 09-22-2022 Digital breast tomosynthesis unilateral Rip Borja Masci DO Work Phone: Start: 09-08-2022 Blood count complete auto&auto difrntl wbc Rip Borja Masci DO Work Phone: Start: 08-23-2022 MAXIM SCREENING W OMI Pa millie Borja Masci DO Work Phone: Start: 08-23-2022 Mammography [...] abdomen & pelvis w/contrast material Caity Cote PULLEY WORKER.OLIVING MACHINE OPERATOR Work Phone: Start: 04-26-2022 Ct thorax w/contrast material Riviera Cote PULLEY WORKER.OLIVING MACHINE OPERATOR Work Phone: Start: 04-14-2022 Blood count complete auto&auto difrntl wbc Rip Borja Masci DO Work Phone: Start: 03-18-2022 Blood count complete auto&auto difrntl wbc Rip Borja Masci DO Work Phone: Start: 02-24-2022 Blood count complete auto&auto difrntl wbc Rip Borja Masci DO Work Phone: Start: 02-03-2022 Blood count complete auto&auto difrntl wbc Rip A Masci DO Work Phone: Start: 01-07-2022 Ct abdomen & pelvis w/contrast material Caity Cote PULLEY WORKER.OLIVING MACHINE OPERATOR Work Phone: Start: 01-07-2022 Ct thorax w/contrast material Caity Cote PULLEY WORKER.OLIVING MACHINE OPERATOR Work Phone: Start: 01-07-2022 Blood count complete auto&auto difrntl wbc Rip Borja Masci DO Work Phone: Start: 12-23-2021 Blood count complete auto&auto difrntl wbc Rip Jollyi DO Work Phone: Start: 12-02-2021 Blood count complete auto&auto difrntl wbc Rip Jollyi DO Work Phone: Start: 11-11-2021 Adult depression scr eening assessment Rip Jollyi DO Work Phone: Start: 11-06-2021 Ct abdomen & pelvis w/contrast material Riviera Cote PULLEY WORKER.OLIVING MACHINE OPERATOR Work Phone: Start: 11-06-2021 Ct thorax w/contrast material Riviera Cote PULLEY WORKER.OLIVING MACHINE OPERATOR Work Phone: Start: 11-06-2021 Blood count complete auto&auto difrntl wbc Rip Jollyi DO Work Phone: Start: 10-21-2021 Blood count complete auto&auto difrntl wbc Riviera Cote PULLEY WORKER.OLIVING MACHINE OPERATOR Work Phone: Start: 09-30-2021 Blood count complete auto&auto difrntl wbc Riviera Cote PULLEY WORKER.OLIVING MACHINE OPERATOR Work Phone: Start: 09-07-2021 Us soft tissue head & neck real time imge docm Rip Jollyi DO Work Phone: Start: 09-02-2021 Blood count complete auto&auto difrntl wbc Caity Cote PULLEY WORKER.OLIVING MACHINE OPERATOR Work Phone: Start: 08-25-[address] atten uation skull base mid-thigh Rip Jollyi DO Work Phone: Start: 01-29-2021 Adult depression scr eening assessment Pet 2 Start: 05-18-2018 Mammography Pet 2 Start: 11-30-2016 Chemotherapy Chemotherapy Leesa Garcia Plan of Treatment Date Care Activity Detail Author Start: 02-14-2028 Diabetes Screening Diabetes Screenin g [facility] Start: 01-24-2028 Diabetes Screening Diabetes Screenin g [facility] Start: 01-03-2028 Diabetes Screening Diabetes Screenin g [facility] Start: 12-13-2027 Diabetes Screening Diabetes Screenin g [facility] Start: 11-22-2027 Diabetes Screening Diabetes Screenin g [facility] Start: 11-01-2027 Diabetes Screening Diabetes Screenin g [facility] Start: 10-11-2027 Diabetes Screening Diabetes Screenin g [facility] Start: 10-04-2027 Diabetes Screening Diabetes Screenin g [facility] Start: 09-06-2027 Diabetes Screening Diabetes Screenin brigido [facility] Start: 08-31-2027 Diabetes Screening Diabetes Screenin brigido [facility] Start: 08-16-2027 Diabetes Screening Diabetes Screenin g [facility] Start: 07-25-2027 Diabetes Screening Diabetes Screenin brigido [facility] Start: 07-04-2027 Diabetes Screening Diabetes Screenin g [facility] Start: 06-13-2027 Diabetes Screening Diabetes Screenin g [facility] Start: 05-23-2027 Diabetes Screening Diabetes Screenin g [facility] Start: 05-02-2027 Diabetes Screening Diabetes Screenin g [facility] Start: 04-11-2027 Diabetes Screening Diabetes Screenin g [facility] Start: 03-21-2027 Diabetes Screening Diabetes Screenin g [facility] Start: 02-26-2027 Diabetes Screening Diabetes Screenin g [facility] Start: 02-02-2027 Diabetes Screening Diabetes Screenin g [facility] Start: 01-15-2027 Diabetes Screening Diabetes Screenin g [facility] Start: 01-03-2027 Diabetes Screening Diabetes Screenin g [facility] Start: 12-13-2026 Diabetes Screening Diabetes Screenin g [facility] Start: 11-22-2026 Diabetes Screening Diabetes Screenin g [facility] Start: 11-01-2026 Diabetes Screening Diabetes Screenin g [facility] Start: 10-10-2026 Diabetes Screening Diabetes Screenin g [facility] Start: 09-20-2026 Diabetes Screening Diabetes Screenin g [facility] Start: 08-29-2026 Diabetes Screening Diabetes Screenin g [facility] Start: 08-09-2026 Diabetes Screening Diabetes Screenin g [facility] Start: 07-20-2026 Diabetes Screening Diabetes Screenin g [facility] Start: 04-26-2026 Diabetes Screening Diabetes Screenin g [facility] Start: 04-06-2026 Diabetes Screening Diabetes Screenin g [facility] Start: 03-16-2026 Diabetes Screening Diabetes Screenin g [facility] Start: 02-23-2026 Diabetes Screening Diabetes Screenin g [facility] Start: 02-02-2026 DIABETES SCREEN DIABETES SCREEN [facility] Start: 02-02-2026 Diabetes Screening Diabetes Screenin g [facility] Start: 01-12-2026 DIABETES SCREEN DIABETES SCREEN [facility] Start: 12-22-2025 DIABETES SCREEN DI[facility]ETES SCREEN [facility] Start: 12-01-2025 DIABETES SCREEN DIABETES SCREEN [facility] Start: 11-10-2025 DIABETES SCREEN DI[facility]ETES SCREEN [facility] Start: 10-18-2025 DIABETES SCREEN DI[facility]ETES SCREEN [facility] Start: 09-30-2025 DIABETES SCREEN DIABETES SCREEN [facility] Start: 09-30-2025 End: 09-30-2025 Patient encounter procedure 09/30/2025 10:40 AM EDT Office Visit [facility] [address] [place] [id number] Eliot Billingsley MD [address] [facility], [address] [place] [address] [facility] Start: 09-29-2025 Medicare Annual Well ness Visit Medicare Annual Wellness Visit (AWV) [facility] Start: 09-08-2025 DIABETES SCREEN DIABETES SCREEN [...] SCREEN DIABETES SCREEN [facility] Start: 04-18-2025 End: 04-18-2025 ambulatory 04/18/2025 8:30 AM EST Infusion Center Hematology/Oncology [address] [place] [address] Q3WK ONTRUZANT(PORT)/LAB&OV 04/17* THUR EARLY AM APPTS - NEXT Q3MO ZOMETA DUE 06/20 Hematology/Oncology Comment on above: Q3WK ONTRUZANT(PORT) /LAB&OV 04/17* THUR EARLY AM APPTS - NEXT Q3MO ZOMETA DUE 06/20 Start: 04-17-2025 End: 04-17-2025 ambulatory Hematology/Oncology Comment on above: (SO)CBC/CMP(S)(PORT) /OV TODAY* OV/LABS EARLY(PORT)C HEMO 04/18* MASCI - WED EARLY AM APPTS Start: 04-14-2025 DIABETES SCREEN DI[facility]ETES SCREEN [facility] Start: 03-28-2025 End: 03-28-2025 ambulatory 03/28/2025 8:30 AM EDT Infusion Center Hematology/Oncology [address] [place] [address] Q3MO ZOMETA/Q3WK ONTRUZANT(PORT)/LAB&OV 03/27* THUR EARLY AM APPTS - NEXT Q3MO ZOMETA DUE 06/20 Hematology/Oncology Comment on above: Q3MO ZOMETA/Q3WK ONT RUZANT(PORT)/LAB&OV 03/27* THUR EARLY AM APPTS - NEXT Q3MO ZOMETA DUE 06/20 Start: 03-27-2025 End: 03-27-2025 ambulatory Hematology/Oncology Comment on above: (SO)CBC/CMP(S)(PORT) /OV TODAY* OV/LABS EARLY(PORT)C HEMO 03/28* MASCI - WED EARLY AM APPTS Start: 03-18-2025 DIABETES SCREEN DIABETES SCREEN [facility] Start: 03-07-2025 End: 03-07-2025 ambulatory 03/07/2025 8:30 AM EDT Infusion Center Hematology/Oncology [address] [place] [address] Q3WK ONTRUZANT(PORT)/LAB&OV 03/06* THUR EARLY AM APPTS - NEXT Q3MO ZOMETA DUE 03/28 Hematology/Oncology Comment on above: Q3WK ONTRUZANT(PORT) /LAB&OV 03/06* THUR EARLY AM APPTS - NEXT Q3MO ZOMETA DUE 03/28 Start: 03-06-2025 End: 03-06-2025 ambulatory Hematology/Oncology Comment on above: (SO)CBC/CMP(S)(PORT) /OV TODAY* OV/LABS EARLY(PORT)C HEMO 03/07* MASCI - WED EARLY AM APPTS Start: 03-01-2025 End: 03-01-2025 Patient encounter procedure Radiation Oncology Comment on above: Location: [email or web address] Refill - Capecitabin e [21DS Omnisys] C9/11 pt holding? msg RPh awaiting response from 02/07 02/08 holding until after RT scheduled til 03/01 Start: 02-27-2025 End: 02-27-2025 Patient encounter procedure Radiation Oncology Comment on above: Location: [email or web address] Location: [facility] Start: 02-25-2025 End: 02-25-2025 Patient encounter procedure 02/25/2025 2:00 PM EDT Appointment Radiation Oncology [address] [place], [place] [id number] Location: [email or web address] On[facility] Comment on above: Location: [email or web address] Start: 02-24-2025 DIABETES SCREEN DIABETES SCREEN [facility] Start: 02-22-2025 End: 02-22-2025 Patient encounter procedure 02/22/2025 2:00 PM EDT Appointment Radiation Oncology [address] [place] [address] Location: [email or web address] Rad[facility] Oncology Comment on above: Location: [email or web address] Start: 02-20-2025 End: 02-20-2025 Patient encounter procedure Radiation Oncology Comment on above: Location: [email or web address] RESIM WITH ABC SBRT Start: 02-15-2025 End: 02-15-2025 Specialty Pharmacy 02/15/2025 7:30 AM EDT Specialty Pharmacy [facility] [address] [place] [address] Pharmacist, [facility] [address] [place] [address] [place] [address] Refill - Capecitabine [21DS Omnisys] C9/11 pt holding? msg RP awaiting response from 02/07 02/08 holding until after RT [facility] Comment on above: Refill - Capecitabin e [21DS Omnisys] C9/11 pt holding? msg RP awaiting response from 02/07 02/08 holding until after RT Start: 02-14-2025 End: 02-14-2025 ambulatory 02/14/2025 9:00 AM EDT Infusion Center Hematology/Oncology [address] [place] [address] Q3WK ONTRUZANT(PORT)/LAB&OV 02/13* THUR EARLY AM APPTS - NEXT Q3MO ZOMETA DUE 03/28 Hematology/Oncology Comment on above: Q3WK ONTRUZANT(PORT) /LAB&OV 02/13* THUR EARLY AM APPTS - NEXT Q3MO ZOMETA DUE 03/28 Start: 02-14-2025 End: 02-14-2025 Patient encounter procedure 02/14/2025 7:00 AM EDT Appointment Radiology [address] [place] [address] Dx: Nontoxic single thyroid nodule [E04.1] Radiology Comment on above: Dx: Nontoxic single thyroid nodule [E04.1] Start: 02-13-2025 End: 02-13-2025 ambulatory Hematology/Oncology Comment on above: (SO)CBC/CMP(S)(PORT) /OV TODAY* OV/LABS EARLY(PORT)C HEMO 02/14* MASCI - WED EARLY AM APPTS Start: 02-11-2025 End: 02-11-2025 Specialty Pharmacy 02/11/2025 8:45 AM EDT Specialty Pharmacy [facility] I[facility] [address] [place] [address] Pharmacist, [facility] [address] [place] [address] [place] [address] Refill - Capecitabine [21DS Omnisys] pt holding? msg Hankins awaiting response from 02/07 [facility] Comment on above: Refill - Capecitabin e [21DS Omnisys] pt holding? brigido Hankins awaiting response from 02/07 Start: 02-07-2025 End: 02-07-2025 Specialty Pharmacy 02/07/2025 7:45 AM EDT Specialty Pharmacy [facility] [address] [place] [address] Pharmacist, [facility] [address] [place] [address] [place] [address] Refill - Capecitabine [21DS Omnisys] [facility] Comment on above: Refill - Capecitabin e [21DS Omnisys] Start: 02-06-2025 End: 02-06-2025 Patient encounter procedure 02/06/2025 8:00 AM EDT Office Visit Radiation Oncology [address] [place] [address] Meenu Garay MD [address] [place], [place] [id number] OV/PET SCAN 01/29 Radiation Oncology Comment on above: OV/PET SCAN 01/29 Start: 02-04-2025 Influenza vaccination Influenza Vacc ine (#1) [facility] Start: 02-03-2025 DIABETES SCREEN DIABETES SCREEN [facility] Start: 01-29-2025 End: 01-29-2025 Patient encounter procedure Mobile PET CT Comment on above: Dx: Malignant neopla sm metastatic to bone (HCC) [C79.51]; 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, 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]; Malignant neoplasm metastatic to lung, unspecified laterality (HCC) [C78.00] Start: 01-24-2025 End: 01-24-2025 ambulatory 01/24/2025 8:30 AM EDT Infusion Center Hematology/Oncology [address] [place] [address] Q3WK ONTRUZANT(PORT)/LAB&OV 01/23* THUR EARLY AM APPTS - NEXT Q3MO ZOMETA DUE 03/28 Hematology/Oncology Comment on above: Q3WK ONTRUZANT(PORT) /LAB&OV 01/23* THUR EARLY AM APPTS - NEXT Q3MO ZOMETA DUE 03/28 Start: 01-23-2025 End: 01-23-2025 ambulatory Hematology/Oncology Comment on above: (SO)CBC/CMP(S)(PORT) /OV TODAY* OV/LABS EARLY(PORT)C HEMO 01/24* MASCI - WED EARLY AM APPTS Start: 01-18-2025 End: 01-18-2025 Specialty Pharmacy 01/18/2025 7:45 AM EDT Specialty Pharmacy [facility] [facility] [place] [address] Pharmacist, [facility] [address] [place] [address] Refill - Capecitabine [21DS Omnisys] C8 [facility] Comment on above: Refill - Capecitabin e [21DS Omnisys] C8 Start: 01-07-2025 DIABETES SCREEN DIABETES SCREEN [facility] Start: 01-03-2025 End: 01-03-2025 ambulatory Hematology/Oncology Comment [...] MASCI - WED EARLY AM APPTS Start: 12-28-2024 End: 12-28-2024 Specialty Pharmacy 12/28/2024 7:45 AM EDT Specialty Pharmacy [facility] [address] [place] [address] [address] [place] [address] Pharmacist, [facility] [address] [place] [address] [place] [address] Refill - Capecitabine [21DS Omnisys] ref rqst 12/25 MRI 12/27 labs/OV 01/02 [facility] Comment on above: Refill - Capecitabin e [21DS Omnisys] ref rqst 12/25 MRI 12/27 labs/OV 01/02 Start: 12-27-2024 End: 12-27-2024 Specialty Pharmacy [facility] Comment on above: Refill - Capecitabin e [DS Omnisys] Dx: Malignant neopla sm of lower-inner [...] cardiomyopathy (HCC) Expected: 12/26/2024 (Approximate), Expires: 03/27/2025 [facility] Comment on above: Expected: 12/26/2024 (Approximate), Expires: [...] cardiomyopathy (HCC) Expected: 12/26/2024 (Approximate), Expires: 01/11/2026 [facility] Work Phone: Comment on above: Expected: 12/26/2024 [...] cardiomyopathy (HCC) Expected: 12/26/2024 (Approximate), Expires: 01/11/2026 [facility] Comment on above: Expected: 12/26/2024 (Approximate), Expires: 01/11/2026 Start: 12-26-2024 End: 12-26-2024 ambulatory 12/26/2024 1:45 PM EDT Infusion Center Hematology/Oncology [address] [place] [address] Wstr, Lab/Port [facility] [address] [place] [address] Hematology/Oncology Comment on [...] [id number]] Start: 12-23-2024 DIABETES SCREEN DIABETES SCREEN [facility] Start: 12-13-2024 End: 12-13-2024 ambulatory Hematology/Oncology Comment [...] AM EDT Specialty Pharmacy [facility] [address] [place] [address] Pharmacist, [facility] [address] [place] [address] [place] [address] Refill - Capecitabine [21DS Omnisys] C012/13 RTS 7 LVM 7 [facility] Comment on above: Refill - Capecitabin e [21DS Omnisys] C07/10 RTS 7/2 LVM 7/2 Start: 12-06-2024 End: 12-06-2024 Specialty Pharmacy 12/06/2024 7:30 AM EDT Specialty Pharmacy [facility] [address] [place] [address] Pharmacist, [facility] [address] [place] [address] [place] [address] Refill - Capecitabine [21DS Omnisys] C012/13 [facility] Comment on above: Refill - Capecitabin e [21DS Omnisys] C0/10 Start: 12-02-2024 DIABETES SCREEN DIABETES SCREEN [facility] Start: 11-29-2024 End: 11-29-2024 ambulatory 11/29/2024 2:00 PM EDT Infusion Center Hematology/Oncology [address] [place] [address] Q3WK ONTRUZANT(PORT)/LAB&OV 11/28* - WED/THUR APPTS -Q3MO [...] AM EDT Infusion Center Hematology/Oncology [address] [place] [address] Q3WK ONTRUZANT(PORT)/LAB&OV 11/21* - THUR EARLY AM [...] Pharmacy 11/15/2024 7:00 AM EDT Specialty Pharmacy [facility] [facility] [address] [place] [address] Pharmacist, [facility] [address] [place] [address] Refill - Capecitabine [21DS Omnisys] [facility] Comment on above: Refill - Capecitabin e [21DS Omnisys] C011/22 Start: 11-08-2024 End: 11-08-2024 ambulatory Hematology/Oncology Comment on above: Q3WK ONTRUZANT(PORT) /LAB&OV 6//MDCR* - wed/amarilys appts -Q3MO ZOMETA DUE AGAIN 12/20 Q3WK ONTRUZANT(PORT) /LAB&OV 6/4* - WED/THUR APPTS -Q3MO ZOMETA DUE AGAIN 12/20 Start: 11-07-2024 End: 11-07-2024 ambulatory Hematology/Oncology Comment on above: (SO)CBC/CMP(S)(PORT) /OV TODAY* OV/LABS EARLY(PORT)C HEMO 6/* - wed/amarilys appts OV/LABS EARLY(PORT)C HEMO 6/5* - WED/THUR APPTS - CAITY OR RIKI Start: 11-06-2024 DIABETES SCREEN DIABETES SCREEN [facility] Start: 11-01-2024 End: 11-01-2024 ambulatory Hematology/Oncology Comment on above: Q3WK ONTRUZANT(PORT) /LAB&OV 10/24* - WED/THUR APPTS -Q3MO ZOMETA DUE AGAIN 12/27 Q3WK ONTRUZANT(PORT) /LAB&OV 10/24* - WED/THUR APPTS -Q3MO ZOMETA DUE AGAIN 12/27* NEEDS EARLIEST AM APTS Q3WK ONTRUZANT(PORT) /LAB&OV 10/31* Start: 10-31-2024 End: 10-31-2024 ambulatory Hematology/Oncology Comment on above: (SO)CBC/CMP(S)(PORT) /OV TODAY* OV/LABS EARLY(PORT)C HEMO 10/25* - WED/THUR APPTS OV/LABS EARLY(PORT)C HEMO 10/25* - WED/THUR APPTS-* NEEDS EARLIEST AM APTS Start: 10-25-2024 End: 10-25-2024 Specialty Pharmacy 10/25/2024 7:15 AM EDT Specialty Pharmacy [facility] [address] [place] [address] Pharmacist, [facility] [address] [place] [address] Refill - Capecitabine [21D] -Omnisys] - See call log 10/10 pt called setting up refill call accordingly [facility] Comment on above: Refill - Capecitabin e [21D] -Omnisys] - See call log 10/10 pt called setting up refill call accordingly Start: 10-21-2024 DIABETES SCREEN DIABETES SCREEN [facility] Start: 10-18-2024 End: 10-18-2024 ambulatory Hematology/Oncology Comment on above: Q3WK ONTRUZANT(PORT) /LAB&OV 10/18/MDCR* - tue/tue appts -Q3MO ZOMETA DUE AGAIN 12/20 prior treatment canc eled by patient due to illness Start: 10-17-2024 End: 10-17-2024 ambulatory Hematology/Oncology Comment on above: (SO)CBC/CMP(S)(PORT) /OV TODAY* OV/LABS EARLY(PORT)C HEMO 10/18* - tue/tue appts Start: 10-11-2024 End: 10-11-2024 ambulatory Hematology/Oncology [...] AM EDT Specialty Pharmacy [facility] [address] [place] [address] [address] [place] [address] Pharmacist, [facility] [address] [place] [address] [place] [address] Refill - Capecitabine [21D] - - [facility] Comment on above: Refill - Capecitabin e [21D] - C5/12 - Start: 09-30-2024 DIABETES SCREEN DIABETES SCREEN [facility] Start: 09-27-2024 End: 09-27-2024 ambulatory 09/27/2024 2:00 PM EDT Infusion Center Hematology/Oncology [address] [place] [address] Q3MO ZOMETA/Q3WK ONTRUZANT(PORT)/LAB&OV 09/26/MDCR* - wed/amarilys appts -Q3MO ZOMETA DUE AGAIN 12/20 Hematology/Oncology Comment on above: Q3MO ZOMETA/Q3WK ONT RUZANT(PORT)/LAB&OV 09/26/MDCR* - wed/amarilys appts -Q3MO ZOMETA DUE AGAIN 12/20 Start: 09-26-2024 COVID-19 Vaccine (7 - Moderna risk season) COVID-19 Vaccine (7 - Moderna risk season) [facility] Start: 09-26-2024 Covid-19 Vaccine (8 - Moderna risk season) Covid-19 Vaccine (8 - Moderna risk season) [facility] Start: 09-26-2024 End: 09-26-2024 ambulatory Hematology/Oncology Comment on above: (SO)CBC/CMP(S)(PORT) /OV TODAY* OV/LABS EARLY(PORT)C HEMO 09/27* - wed/amarilys appts Start: 09-17-2024 End: 09-17-2024 Specialty Pharmacy 09/17/2024 7:30 AM EDT Specialty Pharmacy [facility] [address] [place] [address] [address] [place] [address] Pharmacist, [facility] [address] [place] [address] [place] [address] Refill - Capecitabine [21D] - - [facility] Comment on above: Refill - Capecitabin e [21D] - C4/ - Start: 09-06-2024 End: 09-06-2024 ambulatory 09/06/2024 2:30 PM EDT Infusion Center Hematology/Oncology [address] [place] [address] Q3WK ONTRUZANT(PORT)/LAB&OV 4/2/MDCR* - wed/amarilys appts -Q3MO ZOMETA DUE 09/27 Hematology/Oncology Comment on above: Q3WK ONTRUZANT(PORT) /LAB&OV 4/2/MDCR* - wed/amarilys appts -Q3MO ZOMETA DUE 09/27 Start: 09-05-2024 End: 09-05-2024 ambulatory Hematology/Oncology Comment on above: (SO)CBC/CMP(S)(PORT) /OV TODAY* OV/LABS EARLY(PORT)C HEMO 4/3* - wed/amarilys appts OV/LABS EARLY(PORT)C HEMO 4/3* - tue/amarilys appts [facility] Start: 09-02-2024 DIABETES SCREEN DIABETES SCREEN [facility] Start: 08-30-2024 End: 08-30-2024 Patient encounter procedure 08/30/2024 9:20 AM EDT Appointment Cat Scan [address] [place] [address] Malignant neoplasm of lower-inner quadrant of right breast of female, estrogen r... Cat Scan Comment on above: Malignant neoplasm o f lower-inner quadrant of right breast of female, estrogen r... Start: 08-30-2024 End: 08-30-2024 ambulatory 08/30/2024 9:00 AM EDT Infusion Center Hematology/Oncology [address] [place] [address] Wstr, Lab/Port [facility] [address] [place] [address]* Hematology/Oncology Comment on above: ACCESS PORT FOR CT* Start: 08-30-2024 End: 08-30-2024 Patient encounter procedure Radiology Comment on above: History of thyroid n odule [Z86.39] Malignant neoplasm o f lower-inner quadrant of right breast of female, estrogen r... Start: 08-27-2024 End: 08-27-2024 Specialty Pharmacy 08/27/2024 7:00 AM EDT Specialty Pharmacy [facility] [address] [place] [address] [address] [place] [address] Pharmacist, [facility] [address] [place] [address] [place] [address] Refill - Capecitabine [21DS] C009/03 [facility] Comment on above: Refill - Capecitabin e [21DS] C009/03 Start: 08-16-2024 End: 08-16-2024 ambulatory 08/16/2024 2:30 PM EDT Infusion Center Hematology/Oncology [address] [place] [address] Q3WK ONTRUZANT(PORT)/LAB&OV 08/15/MDCR* - wed/amarilys appts -Q3MO ZOMETA DUE 09/27 Hematology/Oncology Comment on above: Q3WK ONTRUZANT(PORT) /LAB&OV 08/15/MDCR* - wed/amarilys appts -Q3MO ZOMETA DUE 09/27 Start: 08-15-2024 End: 08-15-2024 ambulatory Hematology/Oncology Comment on above: (SO)CBC/CMP(S)(PORT) /OV TODAY* OV/LABS EARLY(PORT)C HEMO 08/16* - tue/amarilys appts Start: 08-12-2024 DIABETES SCREEN DIABETES SCREEN [facility] Start: 08-06-2024 End: 08-06-2024 Specialty Pharmacy [facility] Comment on above: Refill - Capecitabin e [21D] - C3/10 - Dose Reduction, refill req'd 07/16 Refill - Capecitabin e [21D] - C3/10 - Dose Reduction on file Start: 07-26-2024 End: 07-26-2024 ambulatory 07/26/2024 2:00 PM EST Infusion Center Hematology/Oncology [address] [place] [address] Q3WK ONTRUZANT(PORT)/LAB&OV 07/25/MDCR* - wed/amarilys appts -Q3MO [...] Specialty Pharmacy [facility] [address] [place] [address] Pharmacist, [facility] [address] [place] [address] [place] [address] Refill - Capecitabine [21DS Omnisys Tukysa w/ PAP] C007/23 [facility] Comment on above: Refill - Capecitabin e [21DS Omnisys Tukysa w/ PAP] C007/23 Start: 07-05-2024 End: 07-05-2024 ambulatory 07/05/2024 2:30 PM EST Infusion Center Hematology/Oncology [address] [place], [place] [address] Q3MO ZOMETA/Q3WK ONTRUZANT(PORT)/LAB&OV 07/04/MDCR* - wed/amarilys appts [...] AM EST Specialty Pharmacy [facility] [address] [place] [address] Pharmacist, [facility] [address] [place] [address] [place] [address] Refill - Capecitabine [21DS Omnisys Tukysa w/ [...] above: (SO)CBC/CMP(S)(PORT) /OV TODAY* OV/LABS EARLY(PORT)C HEMO 06/14* - wed/amarilys appts Start: 06-07-2024 End: 06-07-2024 Specialty Pharmacy 06/07/2024 8:00 AM EST Specialty Pharmacy [facility] [address] [place], [place] [id number] [place] [address] Pharmacist, [facility] [address] [place] [address] [place] [address] Refill - Capecitabine [21DS Omnisys Tukysa w/ PAP] C006/11 - refill rqst 06/01 [facility] Comment on above: Refill - Capecitabin e [21DS Omnisys Tukysa w/ PAP] C01/06 - refill rqst 06/01 Start: 06-06-2024 Advance Directive Discussion Advance Directive Discussion [facility] Start: 06-04-2024 End: 06-04-2024 Specialty Pharmacy 06/04/2024 7:45 AM EST Specialty Pharmacy [facility] [address] [place] [address] Pharmacist, [facility] 1 [address] [facility] [address] [place] [address] Refill - Capecitabine [21DS Omnisys Tukysa w/ PAP] C006/11 [facility] Comment on above: Refill - Capecitabin e [21DS Omnisys Tukysa w/ PAP] C006/11 Start: 05-24-2024 End: 05-24-2024 ambulatory Hematology/Oncology Comment on above: Q3WK ONTRUZANT/Q3MO ZOMETA(PORT)/LAB&OV 05/23/MDCR* - wed/amarilys appts -Q3MO ZOMETA DUE 07/05 Q3WK ONTRUZANT/(PORT )/LAB&OV 05/23/MDCR* - wed/amarilys appts -Q3MO ZOMETA DUE 07/05 IN AT 10:00 AM(patie nt request d/t family in [facility])/Q3WK ONTRUZANT/(PORT)/LAB&OV 05/23/MDCR* - wed/amarilys appts -Q3MO ZOMETA DUE 07/05 Start: 05-23-2024 Covid-19 Vaccine ( season) Covid-19 Vaccine ( season) [facility] Start: 05-23-2024 End: 05-23-2024 ambulatory Hematology/Oncology Comment on above: (SO)CBC/CMP(S)(PORT) /OV TODAY* OV/LABS EARLY(PORT)C HEMO 05/24* - wed/amarilys appts Start: 05-14-2024 End: 05-14-2024 Specialty Pharmacy 05/14/2024 7:30 AM EST Specialty Pharmacy [facility] [address] [place], [place] [id number] [place] [address] Pharmacist, [facility] 1 [address] [place] [address] Refill - Capecitabine [21DS Omnisys Tukysa w/ PAP] [facility] Comment on above: Refill - Capecitabin e [21DS Omnisys Tukysa w/ PAP] Start: 05-04-2024 End: 05-04-2024 ambulatory 05/04/2024 2:00 PM [facility] Infusion Center Hematology/Oncology [address] [place] [address] NO THUR APPT DUE TO [facility] Hematology/Oncology Comment on above: NO THUR APPT DUE TO [facility] Start: 05-02-2024 End: 05-02-2024 ambulatory Hematology/Oncology Comment on above: (SO)CBC/CMP(S)(PORT) /OV TODAY* OV/LABS EARLY(PORT)C HEMO 05/04* - tue/amarilys appts Start: 04-24-2024 End: 04-24-2024 ambulatory 04/24/2024 10:00 AM [facility] Infusion Center Hematology/Oncology [address] [place] [address] Wstr, Lab/Port [facility] [address] [place] [address] Hematology/Oncology Comment on above: ACCESS PORT FOR CT Start: 04-24-2024 End: 04-24-2024 Patient encounter procedure Cat Scan Comment on above: Malignant neoplasm o f lower-inner quadrant of right breast of female, estrogen receptor positive (HCC) [C50.311, Z17.0] Start: 04-20-2024 End: 04-20-2024 Specialty Pharmacy 04/20/2024 7:15 AM EST Specialty Pharmacy [facility] [facility] [address] [place] [address] Pharmacist, [facility] [address] [place] [address] [place] [address] Refill - Capecitabine [21DS Omnisys Tukysa w/ PAP] [facility] Comment on above: Refill - Capecitabin e [21DS Omnisys Tukysa w/ PAP] Start: 04-12-2024 End: 04-12-2024 ambulatory 04/12/2024 9:30 AM [facility] Hematology/Oncology [address] [place] [address] Q3WK ONTRUZANT/Q3MO ZOMETA(PORT)/LAB&OV 04/11/MDCR* - wed/amarilys appts -Q3MO ZOMETA DUE 07/05 Hematology/Oncology Comment on above: Q3WK ONTRUZANT/Q3MO ZOMETA(PORT)/LAB&OV 04/11/MDCR* - wed/amarilys appts -Q3MO ZOMETA DUE 07/05 Start: 04-11-2024 End: 04-11-2024 ambulatory Hematology/Oncology Comment on above: (SO)CBC/CMP(S)(PORT) /OV TODAY* OV/LABS EARLY(PORT)C HEMO 04/12* - wed/amarilys appts Start: 03-30-2024 End: 03-30-2024 Specialty Pharmacy 03/30/2024 7:30 AM EDT Specialty Pharmacy [facility] [address] [place] [address] [address] [facility] [place] [address] Pharmacist, [facility] [address] [place] [id number] Refill - Capecitabine [DS Omnisys Tukysa w/ PAP] [facility] Comment on above: Refill - Capecitabin e [21DS Omnisys Tukysa w/ PAP] Start: 03-22-2024 End: 03-22-2024 ambulatory Hematology/Oncology Comment on above: Q3WK ONTRUZANT(PORT) /LAB&OV 03/21/MDCR* - wed/amarilys appts -Q3MO ZOMETA DUE 04/09 Q3WK ONTRUZANT(PORT) /LAB&OV 03/21/MDCR* - wed/amarilys appts -Q3MO ZOMETA DUE 04/[address] C/A/P week of Start: 03-21-2024 End: 03-21-2024 ambulatory Hematology/Oncology Comment on above: Q3WK ONTRUZANT(PORT) /LAB&OV 03/20/MDCR* Q3MO ZOMETA DUE 03/08 (SO)CBC/CMP(S)(PORT) /OV TODAY* OV/LABS EARLY(PORT)C HEMO 03/22* - wed/amarilys appts Start: 03-20-2024 End: 03-20-2024 ambulatory Hematology/Oncology Comment on above: (SO)CBC/CMP(S)(PORT) /OV TODAY* OV/LABS EARLY(PORT)C HEMO 03/21* Start: 03-12-2024 End: 03-12-2024 Specialty Pharmacy 03/12/2024 7:30 AM EDT Specialty Pharmacy [facility] [address] [address] Pharmacist, [facility] [address] [place] [address] [address] HARVEYBELLE [place] [address] Refill - Capecitabine [21DS Omnisys [...] AM EDT Specialty [facility] [address] [address] Pharmacist, [facility] [address] [place] [address] [place] [address] Refill - Capecitabine [21DS Omnisys Tukysa w/ PAP] C002/26 - [facility] Comment on above: Refill - Capecitabin e [21DS Omnisys Tukysa w/ PAP] C002/26 - Start: 02-16-2024 End: 02-16-2024 ambulatory 02/16/2024 3:00 PM EDT Infusion Center Hematology/Oncology [address] [place], [place] [address] Q3WK ONTRUZANT(PORT)/LAB & OV 02/14/MDCR* Q3MO ZOMETA DUE 03/08 Hematology/Oncology Comment on above: Q3WK ONTRUZANT(PORT) /LAB & OV 02/14/MDCR* Q3MO ZOMETA DUE 03/08 Start: 02-15-2024 End: 02-15-2024 ambulatory Hematology/Oncology Comment on above: (SO)CBC/CMP(S)(PORT) /OV TODAY* OV/LABS EARLY(PORT)C HEMO 02/15* Start: 02-08-2024 End: 02-08-2024 ambulatory 02/08/2024 8:30 AM EDT Infusion Center Hematology/Oncology [address] [place] [address] Q3WK ONTRUZANT(PORT)/LAB & OV 02/02/MDCR* Q3MO ZOMETA DUE 03/08 Hematology/Oncology Comment on above: Q3WK ONTRUZANT(PORT) /LAB & OV 02/02/MDCR* Q3MO ZOMETA DUE 03/08 Start: 02-05-2024 Covid-19 Vaccine ( season) Covid-19 Vaccine ( season) [facility] Start: 02-05-2024 Covid-19 Vaccine ( season) Covid-19 Vaccine ( season) [facility] Start: 02-05-2024 Influenza vaccination C [facility] Start: 02-03-2024 End: 02-03-2024 ambulatory Hematology/Oncology Comment on above: (SO)CBC/CMP(S)(PORT) /OV TODAY* OV/LABS EARLY(PORT)C HEMO 02/07* Start: 01-30-2024 End: 01-30-2024 Specialty Pharmacy 01/30/2024 7:30 AM EDT Specialty Pharmacy [facility] [address] [place] [id number] Pharmacist, [facility] [address] [place] [address] [place] [address] Refill - Capecitabine [21DS Omnisys Tukysa w/ PAP] C002/02 - LVM 01/25 [facility] Comment on above: Refill - Capecitabin e [21DS Omnisys Tukysa w/ PAP] C0830 - LVM 01/25 Start: 01-27-2024 End: 01-27-2024 Specialty Pharmacy 01/27/2024 7:00 AM EDT Specialty Pharmacy [facility] [address] [place] [id number] Pharmacist, [facility] [address] [place] [address] [place] [address] Refill - Capecitabine [21DS Omnisys Tukysa w/ PAP] C002/02 [facility] Comment on above: Refill - Capecitabin e [21DS Omnisys Tukysa w/ PAP] C002/02 Start: 01-26-2024 End: 01-26-2024 ambulatory 01/26/2024 3:30 PM EDT Infusion Center Hematology/Oncology [address] [place], [place] [id number] Q3WK ONTRUZANT(PORT)/LAB & OV 01/24/MDCR* Q3MO ZOMETA DUE 03/08 Hematology/Oncology Comment on above: Q3WK ONTRUZANT(PORT) /LAB & OV 01/24/MDCR* Q3MO ZOMETA DUE 03/08 Start: 01-25-2024 End: 01-25-2024 ambulatory Hematology/Oncology Comment on above: (SO)CBC/CMP(S)(PORT) /OV TODAY* OV/LABS EARLY(PORT)C HEMO 01/25* Start: 01-16-2024 End: 01-16-2024 Follow-up encounter 01/16/2024 3:30 PM EDT [facility] Radiation Oncology [address] [place] [address] Meenu Garay MD [address] [place] [address] 3 MO FOLLOW UP/CT 01/10* Radiation Oncology Comment on above: 3 MO FOLLOW UP/CT 01/10* Start: 01-16-2024 End: 01-16-2024 ambulatory 01/16/2024 9:00 AM EDT [facility] Hematology/Oncology [address] [place] [address] (SO)CBC/CMP(S) /Q3WK ONTRUZANT(PORT)MDCR* Q3MO ZOMETA DUE 03/08 Hematology/Oncology Comment on above: (SO)CBC/CMP(S) /Q3WK ONTRUZANT(PORT)MDCR* Q3MO ZOMETA DUE 03/08 Start: 01-11-2024 End: 11-26-2024 CT Chest WO contrast CT CHEST WO IVCON Radiology Routine Secondary malignant neoplasm of right lung (HCC) Expected: 01/11/2024 (Approximate), Expires: 11/26/2024 [facility] Work Phone: Comment on above: Expected: 01/11/2024 (Approximate), Expires: 11/26/2024 Start: 01-11-2024 End: 01-11-2024 Patient encounter procedure 01/11/2024 9:00 AM EDT Appointment Cat Scan [address] [place] [address] Secondary malignant neoplasm of right lung (HCC) [...] EDT Appointment Cat Scan [address] [place] [address] Malignant neoplasm of lower-inner quadrant of right [...] AM EDT Specialty Pharmacy [facility] [address] [place], [place] [id number] [address] Pharmacist, [facility] [address] [place] [address] [place] [address] Refill - Capecitabine [21DS Omni Tukysa w/ PAP] C001/05 [facility] Comment on above: Refill - Capecitabin e [21DS Omni Tukysa w/ PAP] C08/ Start: 12-22-2023 End: 12-22-2023 ambulatory 12/22/2023 10:45 AM EDT Infusion Center Hematology/Oncology [address] [place] [id number] [place], Lab/Port [facility] [address] [place] [id number] PORT ACCESS FOR IMAGING* Hematology/Oncology Comment on [...] End: 12-15-2023 ambulatory 12/15/2023 3:30 PM EDT [facility] Hematology/Oncology [address] [place] [address] Q3WK ONTRUZANT/Q3MO ZOMETA(PORT)/LAB & OV 12/13/MDCR* Q3MO ZOMETA DUE 03/08 Hematology/Oncology Comment on above: Q3WK ONTRUZANT/Q3MO ZOMETA(PORT)/LAB & OV 12/13/MDCR* Q3MO ZOMETA DUE 03/08 Start: 12-14-2023 End: 12-14-2023 ambulatory Hematology/Oncology Comment on above: (SO)CBC/CMP(S)(PORT) /OV TODAY* OV/LABS EARLY(PORT)C HEMO 12/14* OV/LABS EARLY(PORT)C HEMO 12/14* [facility] Start: 12-09-2023 End: 12-09-2023 Specialty Pharmacy 12/09/2023 7:00 AM EDT Specialty Pharmacy [facility] [address] [place] [address] [id number] [place] [address] Pharmacist, [facility] [address] [place] [address] [place] [address] Refill - Capecitabine [21DS Omni Tukysa w/ PAP] C012/15 [facility] Comment on above: Refill - Capecitabin e [21DS Omni Tukysa w/ PAP] C012/15 Start: 11-24-2023 End: 11-24-2023 ambulatory 11/24/2023 3:30 PM EDT Infusion Center Hematology/Oncology [address] [place] [address] Q3WK ONTRUZANT(PORT)/LAB & OV 11/22/MDCR* Q3MO ZOMETA [...] Tukysa PAP] C6/22? Confirm Cycle start date. 10/31, asked pt to start med 11/03 Start: 11-11-2023 End: 11-11-2023 ambulatory [place] [facility] Laboratory Comment on above: CBC (SO)CBC Start: 11-03-2023 End: 11-03-2023 ambulatory 11/03/2023 3:30 PM EDT Infusion Center Hematology/Oncology [address] [place] [address] Q3WK ONTRUZANT(PORT)/LAB & OV 11/01/MDCR* Q3MO ZOMETA [...] PM EDT Infusion Center Hematology/Oncology [address] [place] [address] Q3WK ONTRUZANT(PORT)/LAB & OV 10/10/MDCR* Q3MO ZOMETA DUE 12/14 Hematology/Oncology Comment on above: Q3WK ONTRUZANT(PORT) /LAB & OV 10/10/MDCR* Q3MO ZOMETA DUE 12/14 Start: 10-11-2023 End: 10-11-2023 ambulatory Hematology/Oncology Comment on above: (SO)CBC/CMP(S)(PORT) /OV TODAY* OV/LABS EARLY(PORT)C HEMO 10/12* Start: 09-30-2023 End: 09-30-2023 Patient encounter procedure 09/30/2023 1:45 PM EDT Appointment Radiation Oncology [address] [place] [address] Location: [email or web address] Comment on above: Location: [email or web address] Start: 2023 End: 2023 Patient encounter procedure Radiation Oncology Comment on above: Location: [facility] Location: [facility] Start: 09-23-2023 Screening for malign ant neoplasm of breast Mammogram [facility] Start: 08-24-2023 Mammography [facility] Start: 08-24-2023 Screening for malign ant neoplasm of breast Mammogram Screening [facility] Start: 08-17-2023 [facility] Start: 08-16-2023 Venous catheter care management [facility] Start: 06-06-2023 Advance Directive Discussion Advance Directive Discussion [facility] Start: 06-06-2023 Behavioral Health Screening Behavioral Health Screening [facility] Start: 06-06-2023 Depression Assessment Depression Ass essment [facility] Start: 06-01-2023 End: 04-28-2024 Ct thorax w/o contrast material CT CHEST WO IVCON Radiology Routine Malignant neoplasm metastatic to left lung (HCC) Expected: 06/01/2023 (Approximate), Expires: 04/28/2024 [facility] Work Phone: Comment on above: Expected: 06/01/2023 (Approximate), Expires: 04/28/2024 Start: 05-25-2023 COVID-19 Vaccine (5 - Moderna series) COVID-19 Vaccine (5 - Moderna series) [facility] Start: 05-25-2023 Covid-19 Vaccine () Covid-19 Vaccine () [facility] Start: 02-17-2023 Patient discharge [facility] Start: 02-17-2023 Venous catheter care management [facility] Start: 02-17-2023 Assessment of risk o f venous thromboembolism [facility] Start: 02-17-2023 Inhalation therapy procedure [facility] Start: 02-17-2023 Insertion of cathete r into peripheral vein [facility] Start: 02-17-2023 Measuring intake and output [facility] Start: 02-17-2023 Oxygen therapy [facility] Start: 02-17-2023 Providing care accor ding to standard [facility] Start: 02-17-2023 Provision of activit y privileges [facility] Start: 02-17-2023 [facility] Start: 02-17-2023 Verification routine [facility] Start: 02-17-2023 [facility] Start: 02-16-2023 Pulmonary ventilatio n perfusion study Quant Lung Vent/Perf Scan [facility] Start: 02-16-2023 Admission procedure [facility] Start: 02-16-2023 Venous catheter care management [facility] Start: 02-16-2023 [facility] Start: 02-04-2023 Covid-19 Vaccine () Covid-19 Vaccine () [facility] Start: 02-04-2023 Influenza vaccination C [facility] Start: 11-11-2022 Adult depression scr eening assessment DEPRESSION SCREENING [facility] Start: 07-26-2022 COVID-19 VACCINE (6 - Moderna series) COVID-19 VACCINE (6 - Moderna series) [facility] Start: 06-06-2022 ADVANCE DIRECTIVE DISCUSSION ADVANCE DIRECTIVE DISCUSSION [facility] Start: 06-06-2022 DEPRESSION ASSESSMENT DEPRESSION ASS ESSMENT [facility] Start: 02-04-2022 Influenza vaccination C [facility] Start: 01-29-2022 Adult depression scr eening assessment DEPRESSION SCREENING [facility] Start: 01-17-2022 COVID-19 VACCINE (5 - Booster for Moderna series) COVID-19 VACCINE (5 - Booster for Moderna series) [facility] Start: 11-12-2021 COVID-19 VACCINE (5 - Booster for Moderna series) COVID-19 VACCINE (5 - Booster for Moderna series) [facility] Start: 07-03-2021 COVID-19 VACCINE (4 - Booster for Moderna series) COVID-19 VACCINE (4 - Booster for Moderna series) [facility] Start: 06-06-2021 ADVANCE DIRECTIVE DISCUSSION ADVANCE DIRECTIVE DISCUSSION [facility] Start: 06-06-2021 DEPRESSION ASSESSMENT DEPRESSION ASS ESSMENT [facility] Start: 02-04-2021 Influenza vaccination INFLUENZA (#1) [facility] Start: 06-06-2019 Medicare Annual Well ness Visit Medicare Annual Wellness Visit [facility] Start: 05-18-2019 Mammography MAMMOGRAM [facility] Start: 05-18-2019 Screening for malign ant neoplasm of cervix Cervical Cancer Screening [facility] Start: 2018 Pneumococcal Vaccine : 65+ Years (1 - PCV) Pneumococcal Vaccine: 65+ Years (1 - PCV) [facility] Start: 2018 PNEUMOVAX AGE 65 AND OVER WITH 5YR LOOKBACK (#1) PNEUMOVAX AGE 65 AND OVER WITH 5YR LOOKBACK (#1) [facility] Start: 06-02-2017 End: 06-02-2017 Appointment Appointment [facility] Work Phone: Start: 05-26-2017 End: 12-01-2016 Echocardiography Echocardiogram (complete) [facility] Work Phone: Start: 12-01-2016 End: 12-01-2016 Appointment Appointment [facility] Work Phone: Start: 12-01-2016 End: 12-01-2016 SENIOR COMPENSATION CONSULTANT SENIOR COMPENSATION CONSULTANT [facility] Work Phone: Start: 12-01-2016 End: 12-01-2016 Electrocardiogram, complete EKG (In office) [facility] Work Phone: Start: 12-01-2016 End: 12-01-2016 Follow Up Appt 6 months Follow Up Appt 6 months [facility] Work Phone: Start: 2013 RSV Vaccine (1 - 1-d ose 60+ series) RSV Vaccine (1 - 1-dose 60+ series) [facility] Start: 2013 RSV Vaccine (1 - Ris k 60-74 years 1-dose series) RSV Vaccine (1 - Risk 60-74 years 1-dose series) [facility] Start: 09-29-2003 Pneumococcal vaccination Pneum ococcal Vaccine (1 of 1 - PCV) [facility] Start: 09-29-2003 SHINGRIX VACCINE (1 of 2) FRIED GRIX VACCINE (1 of 2) [facility] Start: 09-29-2003 Zoster Vaccines (1 of 2) Zoste r Vaccines (1 of 2) [facility] Start: 1998 COLOGUARD (FIT-DNA) COLOGUARD (FIT-D NA) [facility] Start: 1998 Colonoscopy COLONOSCOPY [facility] Start: 1998 COLORECTAL CANCER SCREENING COLORECTAL CANCER SCREENING [facility] Start: [address] COLONOGRAPHY [facility] Start: 1998 FECAL OCCULT BLOOD FECAL OCCULT BLOO D [facility] Start: 1998 Lipid 1996 panel - S felix or Plasma Lipid Screening [facility] Start: 1998 Lipid panel Lipid Screening [facility] Start: 1998 LIPID SCREEN LIPID SCREEN [facility] Start: 1998 Screening for malign ant neoplasm of colon [facility] Start: 1998 SIGMOIDOSCOPY SIGMOIDOSCOPY [facility] Start: 09-29-1975 DTaP/Tdap/Td Vaccine s (1 - Tdap) DTaP/Tdap/Td Vaccines (1 - Tdap) [facility] Start: 1972 Pneumococcal Vaccine : 50+ (1 of 2 - PCV) Pneumococcal Vaccine: 50+ (1 of 2 - PCV) [facility] Start: 1972 SHINGRIX VACCINE (1 of 2) FRIED GRIX VACCINE (1 of 2) [facility] Start: 1972 Urine microalbumin profile [facility] Start: 09-29-1971 Anxiety Screening Anxiety Screening [facility] Start: 09-29-1971 Depression Screening Depression Scre ening [facility] Start: 09-29-1971 HEPATITIS C SCREENING HEPATITIS C [facility] Start: 09-29-1971 Hepatitis C screening Hepatitis C [facility] Start: 09-29-1959 Pneumococcal Vaccine : 65+ (1 - PCV) Pneumococcal Vaccine: 65+ (1 - PCV) [facility] Start: 09-29-1959 Pneumococcal Vaccine : 65+ (1 of 2 - PCV) Pneumococcal Vaccine: 65+ (1 of 2 - PCV) [facility] Start: 09-29-1959 PNEUMOCOCCAL: 65+ (1 - PCV) PNEUMOCOCCAL: 65+ (1 - PCV) [facility] Start: 1953 Lipid panel Lipid Panel [facility] Start: 1953 Medicare Annual Well ness Visit Medicare Annual Wellness Visit (AWV) [facility] Start: 1953 Screening for malign ant neoplasm of colon [facility] Start: 1953 Screening for osteoporosis Bone Dens ity Scan [facility] End: 01-10-2025 CARDIO ONCOLOGY ECHO CARDIO ONCOLOGY ECHO Cardiology Routine Chemotherapy induced cardiomyopathy (HCC) Encounter for monitoring cardiotoxic drug therapy 1 Occurrences starting 01/11/2024 until 01/10/2025 [facility] Work Phone: Comment on above: 1 Occurrences [...] for 18 Occurrences starting 11/09/2022 until 11/09/2023 [facility] Work Phone: Comment on above: Every 3 [...] carcinoma of breast (HCC) 02/03/2024 9:19 AM [facility] Work Phone: CBC W Auto Different ial panel - Blood COMPLETE BLOOD COUNT AND DIFFERENTIAL Lab STAT Malignant neoplasm of lower-inner quadrant of right breast of female, estrogen receptor positive (HCC) HER2-positive carcinoma of breast (HCC) Malignant neoplasm metastatic to bone (HCC) 02/13/2025 8:29 AM [facility] Work Phone: End: 11-09-2023 Comprehensive metabolic 2000 panel - Serum or Plasma COMP METABOLIC PANEL Lab STAT Malignant neoplasm of lower-inner quadrant of right breast of female, estrogen receptor positive (HCC) Malignant neoplasm metastatic to bone (HCC) Malignant neoplasm metastatic to lung, unspecified laterality (HCC) Chemotherapy-induced cardiomyopathy (HCC) Every 3 weeks for 18 Occurrences starting 11/09/2022 until 11/09/2023 [facility] Work Phone: Comment on above: Every 3 [...] (HCC) 1 Occurrences starting 10/21/2021 until 11/20/2022 [facility] Work Phone: Comment on above: 1 Occurrences starti ng 10/21/2021 until 11/20/2022 End: 01-22-2023 Ct abdomen & pelvis w/contrast material CT ABD/PEL W IVCON Radiology Routine Malignant neoplasm of lower-inner quadrant of right breast of female, estrogen receptor positive (HCC) Bone metastases (HCC) Malignant neoplasm metastatic to both lungs (HCC) Skin, 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) 1 Occurrences starting 12/23/2021 until 01/22/2023 [facility] Work Phone: Comment on above: 1 Occurrences starti ng 12/23/2021 until 01/22/2023 Ct abdomen & pelvis w/contrast material CT ABD/PEL W IVCON Radiology Routine Malignant neoplasm of lower-inner quadrant of right breast of female, estrogen receptor positive (HCC) Bone metastases (HCC) Malignant neoplasm metastatic to both lungs (HCC) Skin, 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) 01/07/2022 10:32 AM EDT [facility] Work Phone: End: 05-14-2023 Ct abdomen & pelvis w/contrast material CT ABD/PEL W IVCON Radiology Routine Malignant neoplasm of lower-inner quadrant of right breast of female, estrogen receptor positive (HCC) Bone metastases (HCC) 1 Occurrences starting 04/14/2022 until 05/14/2023 [facility] Work Phone: Comment on above: 1 Occurrences starti ng 04/14/2022 until 05/14/2023 End: 08-05-2023 Ct abdomen & pelvis w/contrast material CT ABD/PEL W IVCON Radiology Routine Malignant neoplasm of lower-inner quadrant of right breast of female, estrogen receptor positive (HCC) Bone metastases (HCC) Malignant neoplasm metastatic to both lungs (HCC) 1 Occurrences starting 07/06/2022 until 08/05/2023 [facility] Work Phone: Comment on above: 1 Occurrences starti ng 07/06/2022 until 08/05/2023 End: 08-28-2023 Ct abdomen & pelvis w/contrast material CT ABD/PEL W IVCON Radiology Routine Malignant neoplasm of lower-inner quadrant of right breast of female, estrogen receptor positive (HCC) Bone metastases (HCC) Malignant neoplasm metastatic to both lungs (HCC) 1 Occurrences starting 07/30/2022 until 08/28/2023 [facility] Work Phone: Comment on above: 1 Occurrences starti ng 07/30/2022 until 08/28/2023 End: 01-21-2024 Ct abdomen & pelvis w/contrast material CT ABD/PEL W IVCON Radiology Routine Malignant neoplasm of lower-inner quadrant of right breast of female, estrogen receptor positive (HCC) 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) Malignant neoplasm metastatic to both lungs (HCC) 1 Occurrences starting 12/22/2022 until 01/21/2024 [facility] Work Phone: Comment on above: 1 Occurrences [...] (HCC) 1 Occurrences starting 12/14/2023 until 01/12/2025 [facility] Work Phone: Comment on above: 1 Occurrences [...] Chemotherapy-induced neuropathy (HCC) 12/22/2023 11:48 AM EDT [facility] Work Phone: End: 04-21-2025 CT Abdomen and Pelvis W contrast IV CT ABD/PEL W IVCON Radiology Routine Malignant neoplasm of lower-inner quadrant of right breast of female, estrogen receptor positive (HCC) Malignant neoplasm metastatic to bone (HCC) Malignant neoplasm metastatic to both lungs (HCC) 1 Occurrences starting 03/21/2024 until 04/21/2025 [facility] Work Phone: Comment on above: 1 Occurrences starti ng 03/21/2024 until 04/21/2025 CT Abdomen and Pelvi s W contrast IV CT ABD/PEL W IVCON Radiology Routine Malignant neoplasm of lower-inner quadrant of right breast of female, estrogen receptor positive (HCC) Malignant neoplasm metastatic to bone (HCC) Malignant neoplasm metastatic to both lungs (HCC) 04/24/2024 11:01 AM [place] Work Phone: End: 09-15-2025 CT Abdomen and Pelvis W contrast IV CT ABD/PEL W IVCON Radiology Routine Malignant neoplasm of lower-inner quadrant of right breast of female, estrogen receptor positive (HCC) Malignant neoplasm metastatic to bone (HCC) Malignant neoplasm metastatic to both lungs (HCC) 1 Occurrences starting 08/15/2024 until 09/15/2025 [facility] Comment on above: 1 Occurrences starti ng 08/15/2024 until 09/15/2025 CT Abdomen and Pelvi s W contrast IV CT ABD/PEL W IVCON Radiology Routine Malignant neoplasm of lower-inner quadrant of right breast of female, estrogen receptor positive (HCC) Malignant neoplasm metastatic to bone (HCC) Malignant neoplasm metastatic to both lungs (HCC) 08/30/2024 10:08 AM [facility] CT Abdomen and Pelvi s W contrast IV CT ABD/PEL W IVCON Radiology Routine Malignant neoplasm of lower-inner quadrant of right breast of female, estrogen receptor positive (HCC) HER2-positive carcinoma of breast (HCC) Malignant neoplasm metastatic to bone (HCC) Malignant neoplasm metastatic to both lungs (HCC) Chemotherapy-induced cardiomyopathy (HCC) 12/27/2024 12:06 PM [facility] Work Phone: End: 01-12-2025 CT Chest W contrast IV CT CHEST W IVCON Radiology Routine Malignant neoplasm of lower-inner quadrant of right breast of female, estrogen receptor positive (HCC) Malignant neoplasm metastatic to lung, unspecified laterality (HCC) Malignant neoplasm metastatic to bone (HCC) 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) 1 Occurrences starting 12/14/2023 until 01/12/2025 [facility] Comment on above: 1 Occurrences starti ng 12/14/2023 until 01/12/2025 CT Chest W contrast IV CT CHEST W IVCON Radiology Routine Malignant neoplasm of lower-inner quadrant of right breast of female, estrogen receptor positive (HCC) Malignant neoplasm metastatic to lung, unspecified laterality (HCC) Malignant neoplasm metastatic to bone (HCC) 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) 12/22/2023 11:48 AM [facility] End: 04-20-2025 CT Chest W contrast IV CT CHEST W IVCON Radiology Routine Malignant neoplasm of lower-inner quadrant of right breast of female, estrogen receptor positive (HCC) Malignant neoplasm metastatic to bone (HCC) Malignant neoplasm metastatic to both lungs (HCC) 1 Occurrences starting 03/21/2024 until 04/20/2025 [facility] Comment on above: 1 Occurrences starti ng 03/21/2024 until 04/20/2025 CT Chest W contrast IV CT CHEST W IVCON Radiology Routine Malignant neoplasm of lower-inner quadrant of right breast of female, estrogen receptor positive (HCC) Malignant neoplasm metastatic to bone (HCC) Malignant neoplasm metastatic to both lungs (HCC) 04/24/2024 11:01 AM [facility] End: 09-14-2025 CT Chest W contrast IV CT CHEST W IVCON Radiology Routine Malignant neoplasm of lower-inner quadrant of right breast of female, estrogen receptor positive (HCC) Malignant neoplasm metastatic to bone (HCC) Malignant neoplasm metastatic to both lungs (HCC) 1 Occurrences starting 08/15/2024 until 09/14/2025 [facility] Comment on above: 1 Occurrences starti ng 08/15/2024 until 09/14/2025 CT Chest W contrast IV CT CHEST W IVCON Radiology Routine Malignant neoplasm of lower-inner quadrant of right breast of female, estrogen receptor positive (HCC) Malignant neoplasm metastatic to bone (HCC) Malignant neoplasm metastatic to both lungs (HCC) 08/30/2024 10:08 AM [facility] Work Phone: CT Chest W contrast IV CT CHEST W IVCON Radiology Routine Malignant neoplasm of lower-inner quadrant of right breast of female, estrogen receptor positive (HCC) HER2-positive carcinoma of breast (HCC) Malignant neoplasm metastatic to bone (HCC) Malignant neoplasm metastatic to both lungs (HCC) Chemotherapy-induced cardiomyopathy (HCC) 12/27/2024 12:06 PM [facility] End: 01-22-2023 CT CHEST W IVCON CT CHEST W IVCON Radiology Routine Malignant neoplasm of lower-inner quadrant of right breast of female, estrogen receptor positive (HCC) Bone metastases (HCC) Malignant neoplasm metastatic to both lungs (HCC) Skin, 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) 1 Occurrences starting 12/23/2021 until 01/22/2023 [facility] Work Phone: Comment on above: 1 Occurrences starti ng 12/23/2021 until 01/22/2023 CT CHEST W IVCON CT CHEST W IVCO N Radiology Routine Malignant neoplasm of lower-inner quadrant of right breast of female, estrogen receptor positive (HCC) Bone metastases (HCC) Malignant neoplasm metastatic to both lungs (HCC) Skin, 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) 01/07/2022 10:32 AM EDT [facility] Work Phone: End: 05-14-2023 CT CHEST W IVCON CT CHEST W IVCON Radiology Routine Malignant neoplasm of lower-inner quadrant of right breast of female, estrogen receptor positive (HCC) Bone metastases (HCC) 1 Occurrences starting 04/14/2022 until 05/14/2023 [facility] Work Phone: Comment on above: 1 Occurrences starti ng 04/14/2022 until 05/14/2023 End: 08-05-2023 CT CHEST W IVCON CT CHEST W IVCON Radiology Routine Malignant neoplasm of lower-inner quadrant of right breast of female, estrogen receptor positive (HCC) Bone metastases (HCC) Malignant neoplasm metastatic to both lungs (HCC) 1 Occurrences starting 07/06/2022 until 08/05/2023 [facility] Work Phone: Comment on above: 1 Occurrences starti ng 07/06/2022 until 08/05/2023 End: 08-29-2023 CT CHEST W IVCON CT CHEST W IVCON Radiology Routine Malignant neoplasm of lower-inner quadrant of right breast of female, estrogen receptor positive (HCC) Bone metastases (HCC) Malignant neoplasm metastatic to both lungs (HCC) 1 Occurrences starting 07/30/2022 until 08/29/2023 [facility] Work Phone: Comment on above: 1 Occurrences starti ng 07/30/2022 until 08/29/2023 End: 01-21-2024 CT CHEST W IVCON CT CHEST W IVCON Radiology Routine Malignant neoplasm of lower-inner quadrant of right breast of female, estrogen receptor positive (HCC) 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) Malignant neoplasm metastatic to both lungs (HCC) 1 Occurrences starting 12/22/2022 until 01/21/2024 [facility] Work Phone: Comment on above: 1 Occurrences starti ng 12/22/2022 until 01/21/2024 CT Chest WO contrast CT CHEST WO IVCON Radiology Routine Malignant neoplasm metastatic to left lung (HCC) 08/03/2023 10:10 AM EST [facility] Work Phone: CT Guidance for radi ation treatment of Unspecified body region CT SIM PLANNING RADIATION ONCOLOGY Radiology Routine Secondary malignant neoplasm of right lung (HCC) Ordered: 09/27/2023 [facility] Work Phone: Comment on above: Ordered: 09/27/2023 CT SIM PLANNING RADI ATION ONCOLOGY CT SIM PLANNING RADIATION ONCOLOGY Radiology Routine Malignant neoplasm metastatic to left lung (HCC) Ordered: 02/09/2023 [facility] Work Phone: Comment on above: Ordered: 02/09/2023 [...] (HCC) 1 Occurrences starting 10/21/2021 until 11/20/2022 [facility] Work Phone: Comment on above: 1 Occurrences starti ng 10/21/2021 until 11/20/2022 End: 03-24-2024 Ct thorax w/o contrast material CT CHEST WO IVCON Radiology Routine Malignant neoplasm metastatic to bone (HCC) 1 Occurrences starting 02/23/2023 until 03/24/2024 [facility] Work Phone: Comment on above: 1 Occurrences starti ng 02/23/2023 until 03/24/2024 End: 01-07-2023 ECHO LIMITED ECHO LIMITED Cardiology Routine Malignant neoplasm metastatic to both lungs (HCC) Malignant neoplasm of right breast in female, estrogen receptor positive, unspecified site of breast (HCC) Skin, 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) 1 Occurrences starting 01/07/2022 until 01/07/2023 [facility] Work Phone: Comment on above: 1 Occurrences starti ng 01/07/2022 until 01/07/2023 End: 10-21-2022 Echocardiography ECHO Cardiology Routine Malignant neoplasm of lower-inner quadrant of right breast of female, estrogen receptor positive (HCC) Bone metastases (HCC) Skin, 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) 1 Occurrences starting 10/21/2021 until 10/21/2022 [facility] Work Phone: Comment on above: 1 Occurrences starti ng 10/21/2021 until 10/21/2022 End: 04-14-2023 Echocardiography ECHO Cardiology Routine Malignant neoplasm of lower-inner quadrant of right breast of female, estrogen receptor positive (HCC) Bone metastases (HCC) Encounter for monitoring cardiotoxic drug therapy 1 Occurrences starting 04/14/2022 until 04/14/2023 [facility] Work Phone: Comment on above: 1 Occurrences starti ng 04/14/2022 until 04/14/2023 End: 06-15-2023 Echocardiography ECHO Cardiology Routine Malignant neoplasm of lower-inner quadrant of right breast of female, estrogen receptor positive (HCC) Bone metastases (HCC) Skin, 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) Malignant neoplasm metastatic to both lungs (HCC) Encounter for monitoring cardiotoxic drug therapy 1 Occurrences starting 06/15/2022 until 06/15/2023 [facility] Work Phone: Comment on above: 1 Occurrences starti ng 06/15/2022 until 06/15/2023 End: 10-21-2023 Echocardiography ECHO Cardiology Routine Chemotherapy-induced cardiomyopathy (HCC) 1 Occurrences starting 10/20/2022 until 10/21/2023 [facility] Work Phone: Comment on above: 1 Occurrences starti ng 10/20/2022 until 10/21/2023 End: 12-23-2023 Echocardiography ECHO Cardiology Routine Malignant neoplasm of lower-inner quadrant of right breast of female, estrogen receptor positive (HCC) 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) Malignant neoplasm metastatic to both lungs (HCC) Encounter for monitoring cardiotoxic drug therapy 1 Occurrences starting 12/22/2022 until 12/23/2023 [facility] Work Phone: Comment on above: 1 Occurrences starti ng 12/22/2022 until 12/23/2023 End: 04-26-2024 Echocardiography ECHO Cardiology Routine Malignant neoplasm metastatic to both lungs (HCC) Encounter for monitoring cardiotoxic drug therapy 1 Occurrences starting 04/26/2023 until 04/26/2024 [facility] Work Phone: Comment on above: 1 Occurrences starti ng 04/26/2023 until 04/26/2024 End: 09-20-2024 Echocardiography ECHO Cardiology Routine Encounter for monitoring cardiotoxic drug therapy 1 Occurrences starting 09/21/2023 until 09/20/2024 [facility] Work Phone: Comment on above: 1 Occurrences starti ng 09/21/2023 until 09/20/2024 End: 11-22-2024 Echocardiography ECHO Cardiology Routine Chemotherapy-induced cardiomyopathy (HCC) Encounter for monitoring cardiotoxic drug therapy 1 Occurrences starting 11/23/2023 until 11/22/2024 [facility] Work Phone: Comment on above: 1 Occurrences starti ng 11/23/2023 until 11/22/2024 End: 01-04-2025 Echocardiography ECHO Cardiology Routine Encounter for monitoring cardiotoxic drug therapy 1 Occurrences starting 01/06/2024 until 01/04/2025 [facility] Work Phone: Comment on above: 1 Occurrences starti ng 01/06/2024 until 01/04/2025 End: 01-05-2025 Echocardiography ECHO Cardiology Routine Encounter for monitoring cardiotoxic drug therapy Chemotherapy induced cardiomyopathy (HCC) 1 Occurrences starting 01/06/2024 until 01/05/2025 [facility] Comment on above: 1 Occurrences starti ng 01/06/2024 until 01/05/2025 End: 08-15-2025 Echocardiography ECHO Cardiology Routine Malignant neoplasm of lower-inner quadrant of right breast of female, estrogen receptor positive (HCC) Malignant neoplasm metastatic to bone (HCC) Malignant neoplasm metastatic to both lungs (HCC) Encounter for monitoring cardiotoxic drug therapy 1 Occurrences starting 08/15/2024 until 08/15/2025 [facility] Comment on above: 1 Occurrences starti ng 08/15/2024 until 08/15/2025 End: 12-12-2025 Echocardiography ECHO Cardiology Routine Malignant neoplasm of lower-inner quadrant of right breast of female, estrogen receptor positive (HCC) HER2-positive carcinoma of breast (HCC) Malignant neoplasm metastatic to bone (HCC) Malignant neoplasm metastatic to both lungs (HCC) Chemotherapy-induced cardiomyopathy (HCC) 1 Occurrences starting 12/12/2024 until 12/12/2025 [facility] Comment on above: 1 Occurrences starti ng 12/12/2024 until 12/12/2025 End: 08-05-2023 MAXIM SCREENING W OMI MAXIM SCREENING W OMI Radiology Routine Encounter for screening mammogram for malignant neoplasm of breast 1 Occurrences starting 07/06/2022 until 08/05/2023 [facility] Work Phone: Comment on above: 1 Occurrences starti ng 07/06/2022 until 08/05/2023 Patient Education Rectal Bleeding Tx [facility] Work Phone: [facility] referral [facility] Work Phone: End: 09-08-2024 PET+CT Guidance for [...] (HCC) 1 Occurrences starting 08/10/2023 until 09/08/2024 [facility] Work Phone: Comment on above: 1 Occurrences [...] both lungs (HCC) 08/22/2023 10:41 AM EDT [facility] Work Phone: End: 12-10-2023 Radex spine lumbosacral 2/3 views XR LUMBAR LIMITED 2V AP/LAT Radiology Routine Chronic left sacroiliac pain 1 Occurrences starting 11/10/2022 until 12/10/2023 [facility] Work Phone: Comment on above: 1 Occurrences starti ng 11/10/2022 until 12/10/2023 Radex spine lumbosac ral 2/3 views XR LUMBAR LIMITED 2V AP/LAT Radiology Routine Chronic left sacroiliac pain 11/10/2022 11:10 AM EDT [facility] Work Phone: End: 12-10-2023 Radiologic examination sacroiliac jnts <3 views XR SACROILIAC JOINTS 2V AP PELVIS/FERGUESON Radiology Routine Chronic left sacroiliac pain 1 Occurrences starting 11/10/2022 until 12/10/2023 [facility] Work Phone: Comment on above: 1 Occurrences starti ng 11/10/2022 until 12/10/2023 Radiologic examinati on sacroiliac jnts <3 views XR SACROILIAC JOINTS 2V AP PELVIS/FERGUESON Radiology Routine Chronic left sacroiliac pain 11/10/2022 11:10 AM EDT [facility] Work Phone: End: 2024 US Abdomen RUQ US ABD RIGHT UPPER QUADRANT Radiology Routine RUQ pain 1 Occurrences starting 08/30/2023 until 2024 [facility] Work Phone: Comment on above: 1 Occurrences starti ng 08/30/2023 until 2024 US Abdomen RUQ US ABD RIGHT UPP ER QUADRANT Radiology Routine RUQ pain 09/15/2023 12:01 PM EDT [facility] Work Phone: End: 09-23-2023 US BREAST LTD LT US BREAST LTD LT Radiology Routine Abnormal mammogram 1 Occurrences starting 08/24/2022 until 09/23/2023 [facility] Work Phone: Comment on above: 1 Occurrences starti ng 08/24/2022 until 09/23/2023 End: 10-02-2022 Us soft tissue head & neck real time imge docm US THYROID/PARATHYROID Radiology Routine Thyroid nodule 1 Occurrences starting 09/02/2021 until 10/02/2022 [facility] Work Phone: Comment on above: 1 Occurrences starti ng 09/02/2021 until 10/02/2022 End: 09-14-2025 US Thyroid gland US THYROID/PARATHYROID Radiology Routine History of thyroid nodule 1 Occurrences starting 08/15/2024 until 09/14/2025 [facility] Work Phone: Comment on above: 1 Occurrences starti ng 08/15/2024 until 09/14/2025 US Thyroid gland US THYROID/PARA THYROID Radiology Routine History of thyroid nodule 08/30/2024 8:04 AM EDT [facility] Work Phone: End: 03-15-2026 US Thyroid gland US THYROID/PARATHYROID Radiology Routine Nontoxic single thyroid nodule 1 Occurrences starting 02/13/2025 until 03/15/2026 [facility] Work Phone: Comment on above: 1 Occurrences starti ng 02/13/2025 until 03/15/2026 US Thyroid gland US THYROID/PARA THYROID Radiology Routine Nontoxic single thyroid nodule 02/14/2025 7:42 AM EDT [facility] Work Phone: End: 02-02-2025 XR Chest PA and Lateral XR CHEST 2V FRONTAL/LAT Radiology Routine Malignant neoplasm of lower-inner quadrant of right breast of female, estrogen receptor positive (HCC) Orthopnea 1 Occurrences starting 01/04/2024 until 02/02/2025 [facility] Work Phone: Comment on above: 1 Occurrences starti ng 01/04/2024 until 02/02/2025 XR Chest PA and Lateral XR CHEST 2V FRONTAL/LAT Radiology Routine Malignant neoplasm of lower-inner quadrant of right breast of female, estrogen receptor positive (HCC) Orthopnea 01/04/2024 11:24 AM EDT [facility] Immunizations Immunization Date Immunization Notes Care Provider Fa cili 06-14-2024 influenza, high dose seasonal, preservative-free Treatment [facility] Work Phone: [facility] 06-14-2024 influenza virus vaccine, unspecified formulation Nallely Willy [facility] 03-30-2023 Moderna COVID-19 vaccine, 12 years and older (50mcg/0.5mL)(Spikevax ) Eliot Billingsley MD Work Phone: [facility] Work Phone: 03-25-2022 Moderna COVID-19 vaccine, bivalent, blue cap/st label *Check age/dose* Eliot Billingsley MD Work Phone: [facility] Work Phone: 09-19-2020 COVID-19 vaccine, fu ll dose (MODERNA) Pet 2 [facility] 08-20-2020 COVID-19 vaccine, fu ll dose (MODERNA) Pet 2 [facility] Payers Date Payer Category Payer Self-pay [id number] 2022 Medicare supplementa l policy (as second payer) AARP [id number] 2022 Unknown AAR AAR [id number] 2022-Present [address] [place] [address] [id number] 2021 Private Health Insurance [id number] 2021 Unknown [id number] 2019 Medicare MEDICARE MEDICAR E A AND B [id number] 2019-Present [phone] [place] [address] Medicare [id number] 2019 Medicare [id number] 2019 Private Health Insurance [id number] 2019 Medicare [id number] 2015 Unknown [facility] TIMOTHY [id number] 1955 Unknown [id number] Unknown [id number] Unknown [id number] Unknown [id number] Unknown [id number] Unknown [id number] Unknown [id number] Unknown [id number] Social History Date Type Detail Facility Start: 02-20-2016 End: 02-03-2023 Tobacco smoking status NHIS Never smoked tobacco [facility] Start: 02-20-2016 End: 02-03-2023 Tobacco use and exposure Smokeless tobacco non-user [facility] Start: 08-12-2021 End: 01-23-2025 Alcohol intake Current non-drinker of alcohol (finding) [facility] Start: 06-11-2019 History SDOH Social Connections Phone 5 [facility] Start: 06-11-2019 History SDOH Social Connections Get Together 2 [facility] Start: 06-11-2019 History SDOH Social Connections Cheondoism 1 [facility] Start: 06-11-2019 History SDOH Social Connections Living 3 [facility] Start: 06-11-2019 History SDOH Stress 4 [facility] Start: 1955 Sex Assigned At Female [facility] Start: 08-15-2021 End: 2024 Exposure to SARS-CoV-2 (event) Not sure [facility] Start: 09-15-2021 End: 08-16-2023 Tobacco smoking status NHIS Unknown if ever smoked [facility] Start: 05-01-2019 Non-smoker [facility] Start: 06-11-2019 End: 10-18-2022 History of Social function [facility] Start: 06-11-2019 End: 10-18-2022 Social connection and isolation panel [facility] Do you belong to any clubs or organizations such as sikh groups, unions, fraternal or athletic groups, or school groups? No [facility] Are you now , , , , never or living with a partner? [facility] Start: 05-07-2012 How hard is it for you to pay for the very basics like food, housing, medical care, and heating Not hard at all [facility] Do you feel stress - tense, restless, nervous, or anxious, or unable to sleep at night because your mind is troubled all the time - these days [OSQ] Rather much [facility] (I/We) worried whebert er (my/our) food would run out before (I/we) got money to buy more. Never true [facility] Start: 02-17-2021 Gender identity Identifies as female gender (finding) [facility] Start: 02-17-2021 Sexual orientation Heterosexual (finding) [facility] Start: 06-16-2023 End: 2024 Alcohol intake Ex-drinker (finding) [facility] Work Phone: Start: 1955 Sex Assigned At Not on file [facility] Work Phone: Start: 09-19-2024 Sex Female (finding) [facility] How often to you hav e a drink containing alcohol? Never [facility] Medical Equipment Procedure Code Equipment Code Equipment [...] ri 8fr Plastic Polyurethane Implantable Infusion - [id number] Start: 03-25-2016 SANTO 3GRM HEMO STAT [...] 04-02-2019 Functional Status Date Assessment Result Facility 02-13-2025 Total score [AUDIT-C] 0 02/14/20 25 8:32 AM Kolby Odonnell MA [facility] 2024 Patient Health Questionnaire 2 item (PHQ-2) [Reported] [facility] Work Phone: 02-17-2023 Functional status Ambulates [facility] Work Phone: [facility] Work Phone: [facility] Mental Status Date Assessment Result Facility 02-17-2023 Cognitive function Voice/Name [facility] Work Phone: Clinical Notes 08-25-2021 to 02-14-2025 Bridget Hall RDMS - 02/14/2025 7:00 AM Rip Hatfield DO - 02/13/2025 9:01 AM Crystal Guerrero RN - 02/12/2025 12:56 PM Meenu Banerjee MD - 02/12/2025 12:00 AM EDT Note Date & Type Note Facility 02-14-2025 History of Presen t illness Narrative Radiology Service Progress Note PATIENT NAME: Renate Christiansen DATE OF SERVICE: February 14, 2025 TIME: 7:35 AM PATIENT IDENTITY VERIFICATION COMPLETED USING TWO [...] falls during this visit? Offered Assistance with Transfers/Clothing and Increased Observations by Caregivers PATIENT GENDER DATA: Assigned female at . status: : No status: NO. PATIENT RELEVANT IMPLANT DATA REVIEWED: Not Applicable PATIENT PRESENTS WITH AN IMPLANTABLE OR ATTACHED LICENSED PSYCHOLOGIST: No RADIOLOGY DEPARTMENT: Ultrasound PERIPHERAL IV DATA: Not applicable SIGNED BY: Bridget Hall RDMS February 14, 2025 7:35 AM documented in this encounter [facility] 02-13-2025 History of Presen t illness Narrative Oncologic problem(s): 1) Metastatic recurrence of ER positive, MS negative, HER2 positive breast cancer. 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 HPI: The patient is a 69 year old female who discovered a lump on the lower inner portion of her right breast in the fall of 2015. She was seen at [facility] and underwent a right sided core biopsy on 02/16/2016 by interventional radiology. The tissue specimen demonstrated invasive ductal carcinoma, Yohan grade 2. ER positive (90%, very weak) and MS negative (0%). HER-2 was quantified at 3+. [...] positive, >90% Ki-67 (30-9) positive, 12% CK8 ([id number]) positive CK5-6 (D5 & 1684) negative Calponin-1 (TN539W) negative P40 (BC28) negative E-Cad (ECH-6) positive MORPHOMETRIC ANALYSIS ER (clone 6F11) 15%, weak intensity MS (clone 16/1E2) 0% Her-2Neu (clone CB11) 3+ Block B Calponin-1 (GW001S) negative P40 (BC28) negative CK8 ([id number]) positive INTERPRETATION: A. Right breast 1 o clock, biopsy: Invasive ductal carcinoma, grade 3/3. Positive for estrogen receptors (favorable prognostic indicator). Negative for progesterone receptors (unfavorable prognostic indicator). Positive for overexpression of TTL8dra. B. Right breast 2 o clock, biopsy: [...] ductal carcinoma (no special type) Histologic Grade ([place] grade): Glandular/tubular differentiation - score 3 Nuclear [...] - previously performed on section of tumor ([id number] / [id number]). ER - positive (15%, weak intensity) MS - negative (0%) Her2 krista - positive (3+) Microcalcifications - present in both invasive carcinoma and non-neoplastic tissue. Clinical history - Please make reference to previous specimen ([id number]) right breast at 1 o clock and [...] Capecitabine, tukatinib and trastuzumab. Interim history: No complaints. Neuropathy stable. Saw ENT. No immediate concern in the right tonsillar area. Respiratory status unchanged. No symptoms to suggest worsening cardiomyopathy. Diarrhea and symptoms from hand-foot skin syndrome decreased. She has been off tucatinib and capecitabine for 2 weeks. PMH, medications and allergies personally reviewed by [...] Normal mood. PHYSICAL EXAM: Vitals: Blood pressure 101/69, pulse 68, temperature 36.7 C (98.1 F), temperature source Temporal, weight 80.7 kg (178 lb), SpO2 95%. Well-appearing and in no acute distress. EYES: Sclerae are anicteric bilaterally. LYMPHATIC: There is no palpable cervical, supraclavicular adenopathy. CARDIOVASCULAR: Rhythm is regular. BREAST: Not examined today. ABDOMEN: The abdomen is nondistended. Extremities: No swelling or edema. SKIN: Continued resolution of subcutaneous metastasis near xyphoid. 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 -Recurrent pT2(m) pN0 (none of 5 LNs) MX ER +(15%, weak intensity)/MS negative (0%) HER2 3+ invasive ductal carcinoma the right breast while on AI (anastrozole). -Tolerating capecitabine at dose reduction better. Symptoms of HFS controlled and diarrhea controlled. - Discussed plan to proceed with radiation to right lung metastasis that had shown some progression on recent imaging. Otherwise we will continue trastuzumab for now. Continue holding capecitabine and Tucatinib. Will resume full therapy when she is done with radiation. Repeat imaging in about [address]s and PET scan. Plan: -Okay for Herceptin tomorrow. -Hold capecitabine and tucatinib until about 2 to 3 weeks after radiation. -Continue metoprolol to 25 mg BID. -Zometa every 3 months. -Guardant 360 NGS if has progression of disease. -Echo in mid March. -Continue follow-up with Dr. Galeano. (G62.0, T45.1X5A) Chemotherapy-induced neuropathy (HCC) Assessment: -No subjective change. -Symptoms remain well controlled with Lyrica. Plan: -Continue Lyrica 150 mg twice daily. Thyroid nodule Stable on US fall 2022 and recent PET 08/2023. Progression on recent PET. - Discussed with her obtaining US and referrl to general surgery if ultrasound suggests high risk characteristics. Portions of this documentation were copied and pasted from my previous office visit note dated 01/02/2025 in order to provide a cohesive continuity of the history. The note has been reviewed and edited and updated as necessary. Rip Rivers DO documented in this encounter [facility] 02-12-2025 History of Presen t illness Narrative Radiation Therapy - Patient Education Note PATIENT NAME: Renate Christiansen PATIENT February 12, 2025 [facility] FACILITY/LOCATION: [place] READINESS TO LEARN Cognitive Ability: Alert and oriented Motivation to learn: Eager Interested Family Support: High - Very involved in pt care Instruction provide to: Patient and Spouse Patient learns best by: Individual Instruction Written Instruction - Hand-outs Verbal Instruction Factors effecting learning: None Physical limitations effecting learning: Pain LEARNING RESPONSE Diagnosis: Pt simulated today for radiation therapy to mediastinum. Education Topic/Teaching Points: Radiation therapy, Side effects, OTV, and Transportation: Method of instruction: Individual instruction Written instruction/Handouts Verbal instruction Patient /Family response: Patient and family verbalized understanding of radiation treatments, side effects, OTV, and transportation. Follow-up plan: Complete - No need for follow-up Supplemental material: Informational handouts on Department phone list, Appetite, Fatigue, and SBRT lung. 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 Patient has an Onbody or Implanted device: Yes, person notified was: Port, Radiation therapist notified Signed by: Crystal Bynum RN documented in this encounter [facility] 02-12-2025 History of Presen t illness Narrative RENATE CHRISTIANSEN [id number] 02/12/2025 [facility] Cancer [place] [facility] - Department of Radiation Oncology Treatment Planning Note For reasons stated in the consult note, Renate Christiansen is a candidate for radiation therapy. Based on review and interpretation of the relevant diagnostic studies together with the exam findings, Renate Christiansne was simulated on 02/12/2025 at which time the target volume and/or [...] risk were contoured on the simulation scan Using the fused PET. Special consideration to these and other structures was given in light of the potential for increased toxicities of stereotactic body radiation therapy (SBRT) with close proximity to sensitive organs. After reviewing multiple treatment plans with dosimetry, the best plan was approved to deliver the prescribed course of radiation to the target area using inverse planning to allow for the best isodose distribution, treating to the 76.6% isodose line with 6MV FFF and 4 barnes. Custom MLC and asym jaws for [...] A completed summary of this plan dated 02/19/2025 incorporated herein by reference includes dose, beam arrangements, energy, blocking, isodose distribution, and/or ports and DVH. Electronically Signed Meenu Garay M.D. 1:22 AM documented in this encounter [facility] 02-12-2025 History of Presen t illness Narrative RENATE CHRISTIANSEN [id number] 02/12/2025 [facility] Department of Radiation Oncology [facility] RADIATION ONCOLOGY SIMULATION NOTE DATE OF SIMULATION: 02/12/2025 MACHINE: Siemens Definition CT Simulator Diagnosis: Metastatic breast cancer with one progressive lung metastasis. AREA:Rt lower lung PATIENT POSITION: Supine. CONTRAST: None PROTOCOL: None BLOCKING: Custom blocking to be determined at treatment planning. FIXATION DEVICE: In order to achieve accurate and reproducible treatments, the patient is to be immobilized with full body SBRT vac bag, civco board and compression belt. PROCEDURE: A time-out was [...] if applicable. Electronically Signed Meenu Garay M.D./hudson 1:20 AM documented in this encounter [facility] 02-07-2025 Telephone encounter Note Prescription Refill Information The patient has been identified by name and date of : Yes Caregiver verified no other encounters exist for this prescription request: Yes Caregiver confirmed with patient/requestor that no other refills are due, in the near future, with this provider at this time: Yes The last office visit in the department: 01/23/2025 Does the patient have a future office visit with this provider/department: Yes Requested Prescriptions Pending Prescriptions Disp Refills metoprolol tartrate, short acting, (LOPRESSOR) 25 mg tablet [Pharmacy Med Name: Metoprolol Tartrate 25 MG Oral Tablet] 180 tablet 0 Sig: Take 1 tablet by mouth twice daily Chrissie Elliott LPN February 07, 2025 7:55 AM [facility] 02-07-2025 Miscellaneous Notes Prescription Refill Information The patient has been identified by name and date of : Yes Caregiver verified no other encounters exist for this prescription request: Yes Caregiver confirmed with patient/requestor that no other refills are due, in the near future, with this provider at this time: Yes The last office visit in the department: 01/23/2025 Does the patient have a future office visit with this provider/department: Yes Requested Prescriptions Pending Prescriptions Disp Refills metoprolol tartrate, short acting, (LOPRESSOR) 25 mg tablet [Pharmacy Med Name: Metoprolol Tartrate 25 MG Oral Tablet] 180 tablet 0 Sig: Take 1 tablet by mouth twice daily Chrissie Elliott LPN February 07, 2025 7:55 AM documented in this encounter [facility] 02-06-2025 History of Presen t illness Narrative Radiation Oncology - Follow Up Note PATIENT NAME: Renate Christiansen PATIENT DIAGNOSIS: Metastatic breast cancer with one progressive lung metastasis. INTERVAL HISTORY: 69 year old woman who was initially diagnosed in 2017 with Stage IIA, T2N0, invasive ductal carcinoma of the right breast s/p right breast lumpectomy and sentinel node biopsy, s/p chemotherapy with AC followed by Taxol/Herceptin. It's ER positive (9%, very weak), MS negative (0%) and Her2/krista 3+. She then had radiation treatment to the right breast with 60 Gy in 30 fractions from 09/29/16 to 11/10/16. She had local recurrence in the right breast in 2018 and was treated with right modified radical mastectomy on 04/02/19. It was grade 3 invasive ductal carcinoma measuring 3.5 cm and five axillary nodes were negative. It was ER positive (15%, weak), MS negative and Her2 3+. CT chest on [...] in 5 fractions from 02/21/23 - 03/02/23. She then underwent SBRT to the right middle lung metastasis with 50 Gy in 5 fractions from 09/21/23 - 09/30/23. She is currently on Capecitabine, tukatinib and trastuzumab. CT C/A/P on 12/27/24 showed a Lobulated nodule in the RIGHT lower lobe on measuring 1.5 x 0.9 cm, remeasured in the same plane on the comparison as 1.1 x 0.7 cm on 08/30/2024 and remeasured on 04/24/2024 as 0.9 x 0.6 cm. PET/CT scan on 01/29/25 showed a basilar right lower lobe nodule has increased in metabolic activity and size, measuring SUV max 5.5, 1.4 x 1.0 cm (3:96), previously SUV max 1.6, 0.6 cm. There was asymmetric uptake at the right tonsillar region and she was evaluated by ENT. ALLERGIES Allergen Reactions Neratinib Hives Hives/itching/ nausea vomiting and diarrhea Amoxil [Amoxicillin] Rash Aspirin Other: See Comments Internal bleeding Cephalosporins Unknown Ciprocinonide Unknown Codeine Unknown Demerol [Meperidine* Unknown Erythromycin Unknown Latex Rash [place] [Hydrocodone-* Hives Nubain [Nalbuphine * Unknown Paxlovid [Nirmatrel* Intolerance Kidneys shut down Percocet [Oxycodone* Rash, Itching Ama Other: See Comments Migraine headache Sulfa (Sulfonamide * Other: See Comments Fever/Gi upset/listless MEDICATIONS: metoprolol tartrate, short acting, (LOPRESSOR) 25 mg tablet Take 1 tablet by mouth twice daily (Patient taking differently: Take 1 tablet by mouth twice daily) promethazine (PHENERGAN) 25 mg tablet Take 1 tablet by mouth every 6 hours as needed. FOR NAUSEA potassium chloride (KLOR-CON) 20 mEq packet Take 20 mEq by mouth once daily. capecitabine (XELODA) 500 mg tablet Take 2 tablets (1,000 mg) in the morning and 2 tablets (1,000 mg) in the evening by mouth with food for 14 days then 7 days off. Acetaminophen 500 mg cap Take 2 capsules by mouth as needed. pregabalin (LYRICA) 150 mg capsule Take 1 [...] other tucatinib prescription for 200 mg total. loratadine (CLARITIN) 10 mg tablet Take 10 [...] mg by mouth twice daily as needed. PHYSICAL EXAM: VS: BP 111/60 (BP Site: Left Arm, BP Position: Sitting) Pulse 78 Temp 37.2 C (98.9 F) (Temporal) Resp 18 Wt 79.4 kg (175 lb) SpO2 96% BMI 32.24 kg/m KPS: 100 General Appearance: Alert and oriented. No acute distress. HEENT: NCAT. Sclera anicteric. EOMI. Neck: Normal ROM. Chest: No respiratory distress. Musculoskeletal: Normal ROM in extremities. Neuro: Speech fluent. Gait normal. No focal deficits. Hematologic: No signs of active bleeding. ASSESSMENT AND PLAN: 69 year old woman with metastatic breast cancer with one progressive lung metastasis. I recommend SBRT. I explained the rationale, benefits, alternative management options and potential complications of radiation treatment to the patient and she understands and agrees to proceed. It was explained and understood that other personnel such as radiation therapists, knobber, and physicists will participate in planning and delivery of radiation treatment. Permanent tattoo amado will be placed to aid with positioning for daily treatment and the patient consented. Patient will have a simulation procedure within a week. Signed by: Meenu Garay MD cc: RUPALI MIRZA [address] [facility] [place] [place] [address] Rip Jollynathanael Radiation Therapy - Nursing Note (Follow-up) PATIENT NAME: Renate Christiansen PATIENT February 06, 2025 [facility] FACILITY/LOCATION: [place] Reason for visit: Follow up. PET scan completed on 01/29/25 Subjective Data Follow up from PET scan completed on 01/29/25. I went to ENT because my tonsils glowed on my scan but the doctor said he wanted to see me in 3 months because it would do more harm to take them out. Additional Data Do you want to see a Lease Examiner? No Nursing Assessment Fatigue: none Appetite: good Weight Gain/Loss: Not applicable Last 6 Encounter Wt Readings: Date: Wt: 01/23/2025 80.3 kg (177 lb) 01/23/2025 80.3 kg (177 lb) 01/02/2025 79.4 kg (175 lb) 01/02/2025 79.4 kg (175 lb) 12/12/2024 78.5 kg (173 lb) 11/21/2024 77.6 kg (171 lb) Bowel Function: normal bowel movements Bone Pain: none Focused Assessment CHEST: Dysphagia: No. Pain with swallowing: Minimal. Shortness of breath: No. Cough: None. SIGNED by: Crystal Bynum RN documented in this encounter [facility] 02-06-2025 Telephone encounter Note New dose pended. Prescription Refill Information The patient has been identified by name and date of : Yes Caregiver verified no other encounters exist for this prescription request: Yes Caregiver confirmed with patient/requestor that no other refills are due, in the near future, with this provider at this time: Yes The last office visit in the department: 01/23/2025 Does the patient have a future office visit with this provider/department: Yes Requested Prescriptions Pending Prescriptions Disp Refills losartan (COZAAR) 100 mg tablet 90 tablet 1 Sig: Take 1 tablet by mouth once daily. Chrissie Elliott LPN February 06, 2025 7:57 AM Chrissie Elliott LPN [facility] 02-06-2025 Miscellaneous Notes New dose pended. Prescription Refill Information The patient has been identified by name and date of : Yes Caregiver verified no other encounters exist for this prescription request: Yes Caregiver confirmed with patient/requestor that no other refills are due, in the near future, with this provider at this time: Yes The last office visit in the department: 01/23/2025 Does the patient have a future office visit with this provider/department: Yes Requested Prescriptions Pending Prescriptions Disp Refills losartan (COZAAR) 100 mg tablet 90 tablet 1 Sig: Take 1 tablet by mouth once daily. Chrissie Elliott LPN February 06, 2025 7:57 AM Chrissie Elliott LPN patient is requesting 100 mg tablet for losartan instead of 2 50 mg. Patient has been identified by name and date of : Yes Last office visit in this department: Visit date not found RX INSTRUCTIONS: Patient aware RX will be sent to pharmacy. No need to notify patient. Patient phones requesting refills as follows: Requested Prescriptions Pending Prescriptions Disp Refills losartan (COZAAR) 50 mg tablet 180 tablet Sig: Take 2 tablets by mouth once daily. Please review and advise. Tiffany Cast documented in this encounter [facility] 02-05-2025 Telephone encounter Note patient is requesting 100 mg tablet for losartan instead of 2 50 mg. Patient has been identified by name and date of : Yes Last office visit in this department: Visit date not found RX INSTRUCTIONS: Patient aware RX will be sent to pharmacy. No need to notify patient. Patient phones requesting refills as follows: Requested Prescriptions Pending Prescriptions Disp Refills losartan (COZAAR) 50 mg tablet 180 tablet Sig: Take 2 tablets by mouth once daily. Please review and advise. Tiffany Cast [facility] Work Phone: 01-30-2025 Telephone encounter Note Patient is scheduled to see Dr. Garay 02/06/2025. Patient verbalized understanding of all instructions. Referral to Dr. Vargas faxed earlier. Jazlyn Harding LPN [facility] 01-30-2025 Miscellaneous Notes Patient is scheduled to see Dr. Garay 02/06/2025. Patient verbalized understanding of all instructions. Referral to Dr. Vargas faxed earlier. Jazlyn Harding LPN Left message for patient to return call. Referral faxed to Dr. Vargas. Jazlyn Harding LPN Can let her know the PET scan showed a small increase in size of the tumor in the right lower lung. I had previously talked with Dr. Garay about RT to this tumor if PET scan showed no evidence of metastatic disease which it does not. There was some uptake in the right tonsillar region for which I would like to obtain ENT evaluation. Dr. Vargas or Dr. Arroyo at [facility]. We can fax a copy of her most recent office visit note as well as the PET scan report to them. I do not necessarily think this is anything cancerous, but best to check it out. She can continue trastuzumab while receiving radiation but she should hold capecitabine and Tucatinib. Continue therapy for now until she has a chance to see Dr. Garay and set up a schedule of radiation. Rip Rivers DO documented in this encounter [facility] 01-30-2025 Telephone encounter Note Left message for patient to return call. Referral faxed to Dr. Vargas. Jazlyn Harding LPN [facility] 01-30-2025 Telephone encounter Note Can let her know the PET scan showed a small increase in size of the tumor in the right lower lung. I had previously talked with Dr. Garay about RT to this tumor if PET scan showed no evidence of metastatic disease which it does not. There was some uptake in the right tonsillar region for which I would like to obtain ENT evaluation. Dr. Vargas or Dr. Arroyo at [facility]. We can fax a copy of her most recent office visit note as well as the PET scan report to them. I do not necessarily think this is anything cancerous, but best to check it out. She can continue trastuzumab while receiving radiation but she should hold capecitabine and Tucatinib. Continue therapy for now until she has a chance to see Dr. Garay and set up a schedule of radiation. Rip Rivers DO [facility] 01-29-2025 History of Presen t illness Narrative RADIOLOGY SERVICE PROGRESS NOTE SERVICE DATE: 01/29/2025 SERVICE TIME: 12:36 PM PATIENT IDENTITY VERIFICATION COMPLETED USING TWO [...] Observations by Caregivers PATIENT GENDER DATA: .female ALLERGIES: Reviewed and unchanged MEDICATIONS REVIEWED: Not applicable PATIENT RELEVANT IMPLANT DATA REVIEWED: Not Applicable PATIENT PRESENTS WITH AN IMPLANTABLE OR ATTACHED LICENSED PSYCHOLOGIST: No CREATININE: Creatinine Date Value Ref Range Status 01/23/2025 1.11 (H) 0.58 - 0.96 mg/dL Final 01/02/2025 1.08 (H) 0.58 - 0.96 mg/dL Final 12/27/2024 1.25 (H) 0.58 - 0.96 mg/dL Final Estimated Glomerular Filtration Rate Date Value Ref Range Status 01/23/2025 53 (L) >=60 mL/min/1.73m Final Comment: Estimated Glomerular [...] Status 07/20/2021 >60 Final P.O.C.T. RESULTS: N/A January 29, [address] PERFORMED: No IV SITE: Ambulatory: NM only - direct IV injection in the Left antecubital site POST EXAM PIV STATUS: Discontinued PROCEDURE TYPE: NM INJECT: PET/CT BODY SCAN. 12 mCi F18 FDG. Administered By: mo . No other medications given.. ADMINISTRATION TIME: 1230 PATIENT DISCHARGED TO: Ambulatory patient, left [place] department area. Is this a therapy: No A Diagnostic radioactive procedure has taken place, with no further precautions necessary other than routine body substance precautions. More information regarding radiation safety can be found using this link: [email or web address]% 20Nuclear%20Medicine%20Procedur [email or web address] SIGNATURE: EJ Pagan) PATIENT NAME: Renate Christiansen DATE: January 29, 2025 TIME: 12:36 PM PAGER/CONTACT #: documented in this encounter [facility] 01-29-2025 Note HNO ID: [id number] Author: BENNY LOPEZ RT(R) Service: Nuclear Medicine Author Type: Technologist Type: Progress Notes Filed: 01/29/2025 12:37 Note Text: RADIOLOGY SERVICE PROGRESS NOTE SERVICE DATE: 01/29/2025 SERVICE TIME: 12:36 PM PATIENT IDENTITY VERIFICATION COMPLETED USING TWO [...] Observations by Caregivers PATIENT GENDER DATA: .female ALLERGIES: Reviewed and unchanged MEDICATIONS REVIEWED: Not applicable PATIENT RELEVANT IMPLANT DATA REVIEWED: Not Applicable PATIENT PRESENTS WITH AN IMPLANTABLE OR ATTACHED LICENSED PSYCHOLOGIST: No CREATININE: Creatinine Date Value Ref Range Status 01/23/2025 1.11 (H) 0.58 - 0.96 mg/dL Final 01/02/2025 1.08 (H) 0.58 - 0.96 mg/dL Final 12/27/2024 1.25 (H) 0.58 - 0.96 mg/dL Final Estimated Glomerular Filtration Rate Date Value Ref Range Status 01/23/2025 53 (L) >=60 mL/min/1.73m? Final Comment: Estimated Glomerular Filtration [...] Status 07/20/2021 >60 Final P.O.C.T. RESULTS: N/A January 29, [address] PERFORMED: No IV SITE: Ambulatory: NM only - direct IV injection in the Left antecubital site POST EXAM PIV STATUS: Discontinued PROCEDURE TYPE: NM INJECT: PET/CT BODY SCAN. 12 mCi F18 FDG. Administered By: mo . No other medications given.. ADMINISTRATION TIME: 1230 PATIENT DISCHARGED TO: Ambulatory patient, left [place] department area. Is this a therapy: No A Diagnostic radioactive procedure has taken place, with no further precautions necessary other than routine body substance precautions. More information regarding radiation safety can be found using this link: [email or web address] 20Diagnostic%20Nuclear%20Medici ne%20Procedures.[email or web address] SIGNATURE: RT Latasha(R) PATIENT NAME: Renate Christiansen DATE: January 29, 2025 TIME: 12:36 PM PAGER/CONTACT #: [facility] 01-23-2025 History of Presen t illness Narrative Chief Complaint Patient presents with: Established Patient HPI: Renate Christiansen is a 69 year old female who presents here today for evaluation for treatment tomorrow. Per Dr. Rivers's previous note: H/o discovered a lump on the lower inner portion of her right breast in the fall of 2015. She was seen at [facility] and underwent a right sided core biopsy on 02/16/2016 by interventional radiology. The tissue specimen demonstrated invasive ductal carcinoma, Yohan grade 2. ER positive (90%, very weak) and MS negative (0%). HER-2 was quantified at 3+. [...] positive, >90% Ki-67 (30-9) positive, 12% CK8 ([id number]) positive CK5-6 (D5 & 1684) negative Calponin-1 (QN485W) negative P40 (BC28) negative E-Cad (ECH-6) positive MORPHOMETRIC ANALYSIS ER (clone 6F11) 15%, weak intensity MS (clone 16/1E2) 0% Her-2Neu (clone CB11) 3+ Block B Calponin-1 (JC252W) negative P40 (BC28) negative CK8 (65jhhcM75) positive INTERPRETATION: A. Right breast 1 o clock, biopsy: Invasive ductal carcinoma, grade 3/3. Positive for estrogen receptors (favorable prognostic indicator). Negative for progesterone receptors (unfavorable prognostic indicator). Positive for overexpression of BGZ2cht. B. Right breast 2 o clock, biopsy: [...] ductal carcinoma (no special type) Histologic Grade ([place] grade): Glandular/tubular differentiation - score 3 Nuclear [...] - previously performed on section of tumor ([id number] / [id number]). ER - positive (15%, weak intensity) MS - negative (0%) Her2 krista - positive (3+) Microcalcifications - present in both invasive carcinoma and non-neoplastic tissue. Clinical history - Please make reference to previous specimen ([id number]) right breast at 1 o clock and [...] Current therapy: 1) Capecitabine, tukatinib and trastuzumab. I did have diarrhea yesterday. I took one imodium and that worked. Pt. here today with spouse. Appetite:Good. Wt. up 7# since November. Energy level:Good. Denies fevers or recent illness. Mouth:denies sores Resp:denies cough or sob Cardiac:denies chest pain/palpitations/leg swelling GI:denies abd pain, n/v, +diarrhea-as above :denies dysuria/hematuria Extrem:denies new pain Endo:denies hot flashes Neuro:+neuropathy stable Skin:denies rashes, no HFS Heme:denies bleeding The ROS is otherwise negative. Past medical history, appointments, medications, allergies reviewed. No changes. EXAM: BP 127/80 Pulse 72 Temp 36.5 C (97.7 F) (Temporal) Wt 80.3 kg (177 lb) SpO2 96% BMI 32.61 kg/m APPEARANCE Well appearing, alert, [...] rashes or lesions LABS: Latest Ref Rng 12/12/2024 01/02/2025 01/23/2025 WBC 3.70 - 11.00 k/uL 5.01 4.41 4.48 RBC 3.90 - 5.20 m/uL 3.06 (L) 3.19 (L) 3.06 (L) Hemoglobin 11.5 - 15.5 g/dL 11.6 12.0 11.7 Hematocrit 36.0 - 46.0 % 33.4 (L) 35.2 (L) 34.1 (L) MCV 80.0 - 100.0 fL 109.2 (H) 110.3 (H) 111.4 (H) MCH 26.0 - 34.0 pg 37.9 (H) 37.6 (H) 38.2 (H) MCHC 30.5 - 36.0 g/dL 34.7 34.1 34.3 RDW-CV 11.5 - 15.0 % 17.7 (H) 17.7 (H) 17.6 (H) Platelet Count 150 - 400 k/uL 146 (L) 162 157 MPV 9.0 - 12.7 fL 9.5 9.3 9.1 Neut% % 62.0 61.0 63.3 Abs Neut (ANC) 1.45 - 7.50 k/uL 3.11 2.69 2.83 Lymph% % 20.6 21.5 19.4 Abs Lymph 1.00 - 4.00 k/uL 1.03 0.95 (L) 0.87 (L) [place]% % 12.4 11.6 11.8 Abs [place] <0.87 k/uL 0.62 0.51 0.53 Eosin% % 4.6 5.2 4.9 Abs Eosin <0.46 k/uL 0.23 0.23 0.22 Baso% % 0.4 0.5 0.2 Abs Baso <0.11 k/uL <0.03 <0.03 <0.03 Immature Gran % % 0.0 0.2 0.4 IMMATURE GRANS (ABS) <0.10 k/uL <0.03 <0.03 <0.03 NRBC /100 WBC 0.0 0.0 0.0 Absolute nRBC <0.01 k/uL <0.01 <0.01 <0.01 DTYPE Auto Auto Auto Latest Ref Rng 12/12/2024 01/02/2025 01/23/2025 Protein, Total 6.3 - 8.0 g/dL 5.9 (L) 6.0 (L) 6.1 (L) Albumin 3.9 - 4.9 g/dL 3.9 3.9 3.9 Calcium 8.5 - 10.2 mg/dL 9.2 9.3 9.1 Bilirubin, Total 0.2 - 1.3 mg/dL 0.4 0.5 0.4 Alkaline Phosphatase 34 - 123 U/L 111 107 114 AST 13 - 35 U/L 26 24 22 ALT 7 - 38 U/L 13 11 10 Glucose 74 - 99 mg/dL 138 (H) 135 (H) 125 (H) BUN 7 - 21 mg/dL 14 10 8 Creatinine 0.58 - 0.96 mg/dL 1.40 (H) 1.08 (H) 1.11 (H) Sodium 136 - 144 mmol/L 141 143 141 Potassium 3.7 - 5.1 mmol/L 3.5 (L) 3.5 (L) 3.4 (L) Chloride 98 - 107 mmol/L 106 106 105 CO2 22 - 30 mmol/L 25 24 26 Anion Gap 8 - 15 mmol/L 10 13 10 eGFR >=60 mL/min/1.73m 40 (L) 55 (L) 53 (L) ASSESSMENT/PLAN: 1. Malignant neoplasm of lower-inner quadrant of right breast of female, estrogen receptor positive (HCC) - ICD9: 174.3, V86.0, ICD10: C50.311, Z17.0 (primary diagnosis) 2. HER2-positive carcinoma of breast (HCC) - ICD9: 174.9, ICD10: C50.919, Z17.31 3. Malignant neoplasm metastatic to bone (HCC) - ICD9: 198.5, ICD10: C79.51 4. 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 Rivers's previous note: Assessment: -Originally pT2 pN0(sln) MX ER positive (9%, very weak) MS negative HER overexpressed stage IIA invasive ductal carcinoma the right breast. -Recurrent pT2(m) pN0 (none of 5 LNs) MX ER +(15%, weak intensity)/MS negative (0%) HER2 3+ invasive ductal carcinoma the right breast while on AI (anastrozole). -Tolerating capecitabine at dose reduction better. Symptoms of HFS controlled and diarrhea controlled. -Official radiology report on CT scan is not yet available however we reviewed the images together. Right lower lobe lung nodule may be a millimeter larger without any other obvious new pulmonary nodules. CT abdomen pelvis shows no obvious liver lesions. - I would consider this stable disease. She is tolerating treatment at current doses very well overall. Maintaining good quality of life. Very active around the home in the yard. Will therefore continue present therapy and repeat imaging in about 3 months. Plan: -Okay for Herceptin tomorrow. -Continue capecitabine at current dose of 1000 mg BID for 14 days of a 21 day cycle. -Continue tucatinib at 200 mg BID. -Continue metoprolol to 25 mg BID. -Zometa every 3 months. -CTs in about 3 months. -Repeat PET scan if PD. Could consider potential conventional radiation if right lower lobe lung nodule only sided disease with progression. Would also repeat molecular testing at that point. -Echo in about 3 months. -Continue follow-up with Dr. Galeano. (G62.0, T45.1X5A) Chemotherapy-induced neuropathy (HCC) Assessment: -No subjective change. -Symptoms remain well controlled with Lyrica. Plan: -Continue Lyrica 150 mg twice daily. (L27.0) Drug rash Assessment: -Resolved. Plan: -Continue Kenalog 0.1% cream prn if has recurrence. -Continue moisturizer. (Z86.39) History of thyroid nodule Stable on US fall 2022 and recent PET 08/2023. -Due for follow up US. - Overall tolerating treatment well except for occ. diarrhea/neuropathy. - Reviewed CBC/CMP with pt. - Continue current medications. - Continue xeloda/tucatinib at current dose. - ECHO due end of Mar. - PET as scheduled. - Rx Kdur. - Continue zometa every 3 months. - Proceed as scheduled tomorrow for herceptin. - Follow up as scheduled. - Pt. aware to call office with any questions/concerns. The patient indicates understanding of these issues and agrees with the plan. All documentation from previous visit of 01/02/25-Dr. Rivers was copied and pasted, documentation has been reviewed and edited as necessary for today's visit. Caity Cote APRN.OLIVING MACHINE OPERATOR documented in this encounter [facility] 01-18-2025 History of Presen t illness Narrative [facility] [...] been reviewed prior to dispensing the medication. 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 Assessment Patient confirmed: Yes Med/dose confirmed: Yes Supplies needed: No supplies needed Missed doses: No Estimated days supply on hand: 0 Next cycle/dose due: 01/24/25 Copay amount: 0 Copay form of payment: (N/A) Payment confirmed: Yes Delivery method: FedEx Signature required: Waived on patient request Delivery address: [address] [place] [address] *TAKE TO BACK DOOR* [facility] [address] Delivery date: 01/22/25 Questions or concerns for the pharmacist?: No Did you have any side effects believed to be related to this medication, that resulted in hospitalization?: No Current Outpatient Medications on File Prior to Visit Medication Sig capecitabine (XELODA) 500 mg tablet Take 2 tablets (1,000 mg) in the morning and 2 tablets (1,000 mg) in the evening by mouth with food for 14 days then 7 days off. metoprolol tartrate, short acting, (LOPRESSOR) 25 mg tablet Take 1 tablet by mouth twice daily (Patient taking differently: Take 25 mg by mouth once daily.) Acetaminophen 500 mg cap Take 2 capsules by mouth as needed. pregabalin (LYRICA) 150 mg capsule Take 1 [...] facility-administered medications on file prior to visit. [facility] CLINICAL ASSESSMENT - HEMATOLOGY ONCOLOGY V6: Assessment to use: Refill Date of influenza vaccination reminder: 02/21/2024 Date of most recent vaccination assessment: 02/21/2024 Treatment Plan Information: Diagnosis: metastatic recurrence of ER+. MS-, Her2+ breast cancer Previous treatment(s): - Right [...] hx of coronary artery disease), GI toxicity, lioa-ykq-wfzm syndrome (onset ~79 days), hepatotoxicity (onset ~64 [...] toxicity Ruth Mejia documented in this encounter [facility] 01-02-2025 History of Presen t illness Narrative Oncologic problem(s): 1) Metastatic recurrence of ER positive, MS negative, HER2 positive breast cancer. 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 HPI: The patient is a 68 year old female who discovered a lump on the lower inner portion of her right breast in the fall of 2015. She was seen at [facility] and underwent a right sided core biopsy on 02/16/2016 by interventional radiology. The tissue specimen demonstrated invasive ductal carcinoma, Yohan grade 2. ER positive (90%, very weak) and MS negative (0%). HER-2 was quantified at 3+. [...] positive, >90% Ki-67 (30-9) positive, 12% CK8 (83tzmzG37) positive CK5-6 (D5 & 1684) negative Calponin-1 (MV448Y) negative P40 (BC28) negative E-Cad (ECH-6) positive MORPHOMETRIC ANALYSIS ER (clone 6F11) 15%, weak intensity MS (clone 16/1E2) 0% Her-2Neu (clone CB11) 3+ Block B Calponin-1 (QK304N) negative P40 (BC28) negative CK8 (42ahwuD75) positive INTERPRETATION: A. Right breast 1 o clock, biopsy: Invasive ductal carcinoma, grade 3/3. Positive for estrogen receptors (favorable prognostic indicator). Negative for progesterone receptors (unfavorable prognostic indicator). Positive for overexpression of UWR1ykf. B. Right breast 2 o clock, biopsy: [...] ductal carcinoma (no special type) Histologic Grade (Oakwood grade): Glandular/tubular differentiation - score 3 Nuclear [...] - previously performed on section of tumor ([id number] / [id number]). ER - positive (15%, weak intensity) MS - negative (0%) Her2 krista - positive (3+) Microcalcifications - present in both invasive carcinoma and non-neoplastic tissue. Clinical history - Please make reference to previous specimen ([id number]) right breast at 1 o clock and [...] 1) Capecitabine, tukatinib and trastuzumab. Interim history: I feel good. Taking 1 Imodium tablet in the mornings. No significant diarrhea. No symptoms of cardiomyopathy. Stable dyspnea with [...] Normal mood. PHYSICAL EXAM: Vitals: Blood pressure 123/80, pulse 67, temperature 36.3 C (97.4 F), temperature source Temporal, weight 79.4 kg (175 lb), SpO2 99%. Well-appearing and in no acute distress. EYES: Sclerae are anicteric bilaterally. LYMPHATIC: There is no palpable cervical, supraclavicular adenopathy. CARDIOVASCULAR: Rhythm is regular. BREAST: Not examined today. ABDOMEN: The abdomen is nondistended. Extremities: No swelling or edema. SKIN: Continued resolution of subcutaneous metastasis near xyphoid. 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 -Recurrent pT2(m) pN0 (none of 5 LNs) MX ER +(15%, weak intensity)/MS negative (0%) HER2 3+ invasive ductal carcinoma the right breast while on AI (anastrozole). -Tolerating capecitabine at dose reduction better. Symptoms of HFS controlled and diarrhea controlled. -Official radiology report on CT scan is not yet available however we reviewed the images together. Right lower lobe lung nodule may be a millimeter larger without any other obvious new pulmonary nodules. CT abdomen pelvis shows no obvious liver lesions. - I would consider this stable disease. She is tolerating treatment at current doses very well overall. Maintaining good quality of life. Very active around the home in the yard. Will therefore continue present therapy and repeat imaging in about 3 months. Plan: -Okay for Herceptin tomorrow. -Continue capecitabine at current dose of 1000 mg BID for 14 days of a 21 day cycle. -Continue tucatinib at 200 mg BID. -Continue metoprolol to 25 mg BID. -Zometa every 3 months. -CTs in about 3 months. -Repeat PET scan if PD. Could consider potential conventional radiation if right lower lobe lung nodule only sided disease with progression. Would also repeat molecular testing at that point. -Echo in about 3 months. -Continue follow-up with Dr. Galeano. (G62.0, T45.1X5A) Chemotherapy-induced neuropathy (HCC) Assessment: -No subjective change. -Symptoms remain well controlled with Lyrica. Plan: -Continue Lyrica 150 mg twice daily. (L27.0) Drug rash Assessment: -Resolved. Plan: -Continue Kenalog 0.1% cream prn if has recurrence. -Continue moisturizer. (Z86.39) History of thyroid nodule Stable on US fall 2022 and recent PET 08/2023. -Due for follow up US. Portions of this documentation were copied and pasted from my previous office visit note dated 08/15/2024 in order to provide a cohesive continuity of the history. The note has been reviewed and edited and updated as necessary. Rip Rivers DO documented in this encounter [facility] 12-28-2024 History of Presen t illness Narrative [facility] [...] been reviewed prior to dispensing the medication. 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 Assessment Patient confirmed: Yes Med/dose confirmed: Yes Supplies needed: No supplies needed Missed doses: No Estimated days supply on hand: 0 Next cycle/dose due: 01/03/25 Copay amount: 0 Copay form of payment: (N/A) Payment confirmed: Yes Delivery method: FedEx Signature required: Waived on patient request Delivery address: [address] *TAKE TO BACK DOOR* [facility] [address] Delivery date: 01/01/25 Questions or concerns for the pharmacist?: No Did you have any side effects believed to be related to this medication, that resulted in hospitalization?: No Current Outpatient Medications on File Prior to Visit Medication Sig capecitabine (XELODA) 500 mg tablet Take 2 tablets (1,000 mg) in the morning and 2 tablets (1,000 mg) in the evening by mouth with food for 14 days then 7 days off. metoprolol tartrate, short acting, (LOPRESSOR) 25 mg tablet Take 1 tablet by mouth twice daily Acetaminophen 500 mg cap Take 2 capsules by mouth as needed. iv contrast (will be provided [...] facility-administered medications on file prior to visit. [facility] SPECIALTY CLINICAL ASSESSMENT - HEMATOLOGY ONCOLOGY V6: Assessment to use: Refill Date of influenza vaccination reminder: 02/21/2024 Date of most recent vaccination assessment: 02/21/2024 Treatment Plan Information: Diagnosis: metastatic recurrence of ER+. MS-, Her2+ breast cancer Previous treatment(s): - Right [...] hx of coronary artery disease), GI toxicity, xyga-vgc-crab syndrome (onset ~79 days), hepatotoxicity (onset ~64 [...] toxicity Ruth Mejia documented in this encounter [facility] 12-27-2024 History of Presen t illness Narrative Radiology Service Progress Note PATIENT NAME: Renate Christiansen DATE OF SERVICE: December 27, 2024 TIME: 2:01 PM PATIENT IDENTITY VERIFICATION COMPLETED USING TWO [...] PATIENT PRESENTS WITH AN IMPLANTABLE OR ATTACHED LICENSED PSYCHOLOGIST: No RADIOLOGY DEPARTMENT: CT; Exam(s) Completed: Chest Abdomen Pelvis PERIPHERAL IV DATA: power port accessed by [employer] SIGNED BY: RT Ashley(R) December 27, 2024 2:01 PM documented in this encounter [facility] 12-27-2024 History of Presen t illness Narrative Patient is here for IVAD port flush/blood draw per [facility] [place] protocol. IVAD is located in left upper chest. Site cleansed with Chloraprep IVAD accessed with a #20 gauge 3/4 non-coring Gripper needle Flush with 5cc's Normal Saline. Blood Return: Good. 10 cc's blood aspirated and discarded. Blood drawn for CMP. Flushed with: 20 ml Normal Saline. Non-coring needle left intact for further therapy. Opsite applied to puncture site. Site negative for redness, edema or tenderness. Patient tolerated procedure well. documented in this encounter [facility] 12-12-2024 Telephone encounter Note Faxed order to [facility] Ruchi Morris [facility] 12-12-2024 Miscellaneous Notes Faxed order to [facility] Ruchi Morris AVS 7/9 - ECHO due this month at [facility]. - CT's after this cycle. DONE - Start xeloda/tukysa tomorrow. - Proceed as scheduled tomorrow for herceptin pending labs. - Follow up as scheduled otherwise. - Pt. aware to call office with any questions/concerns. documented in this encounter [facility] 12-12-2024 Telephone encounter Note AVS 7/9 - ECHO due this month at [facility]. - CT's after this cycle. DONE - Start xeloda/tukysa tomorrow. - Proceed as scheduled tomorrow for herceptin pending labs. - Follow up as scheduled otherwise. - Pt. aware to call office with any questions/concerns. [facility] Work Phone: 12-12-2024 History of Presen t illness Narrative Chief Complaint Patient presents with: Established Patient HPI: Renate Christiansen is a 69 year old female who presents here today for evaluation for treatment tomorrow. Per Dr. Rivers's previous note: H/o discovered a lump on the lower inner portion of her right breast in the fall of 2015. She was seen at [facility] and underwent a right sided core biopsy on 02/16/2016 by interventional radiology. The tissue specimen demonstrated invasive ductal carcinoma, Oakwood grade 2. ER positive (90%, very weak) and MS negative (0%). HER-2 was quantified at 3+. [...] positive, >90% Ki-67 (30-9) positive, 12% CK8 (50shykW65) positive CK5-6 (D5 & 1684) negative Calponin-1 (XQ059G) negative P40 (BC28) negative E-Cad (ECH-6) positive MORPHOMETRIC ANALYSIS ER (clone 6F11) 15%, weak intensity MS (clone 16/1E2) 0% Her-2Neu (clone CB11) 3+ Block B Calponin-1 (WV194H) negative P40 (BC28) negative CK8 (10licoL22) positive INTERPRETATION: A. Right breast 1 o clock, biopsy: Invasive ductal carcinoma, grade 3/3. Positive for estrogen receptors (favorable prognostic indicator). Negative for progesterone receptors (unfavorable prognostic indicator). Positive for overexpression of WRY8bip. B. Right breast 2 o clock, biopsy: [...] ductal carcinoma (no special type) Histologic Grade (Oakwood grade): Glandular/tubular differentiation - score 3 Nuclear [...] - previously performed on section of tumor ([id number] / [id number]). ER - positive (15%, weak intensity) MS - negative (0%) Her2 krista - positive (3+) Microcalcifications - present in both invasive carcinoma and non-neoplastic tissue. Clinical history - Please make reference to previous specimen ([id number]) right breast at 1 o clock and [...] - 4.00 k/uL 0.86 (L) 1.08 1.03 [place]% % 10.7 11.8 12.4 Abs [place] <0.87 k/uL 0.40 0.55 0.62 Eosin% % [...] pN0(sln) MX ER positive (9%, very weak) MS negative HER overexpressed stage IIA invasive ductal carcinoma the right breast. -Recurrent pT2(m) pN0 (none of 5 LNs) MX ER +(15%, weak intensity)/MS negative (0%) HER2 3+ invasive ductal carcinoma [...] pending. - ECHO done in September at [facility]. Next due this month. - Continue zometa every 3 months. - Start xeloda/tukysa tomorrow. - ECHO due this month at [facility]. - CT's after this cycle. - [...] edited as necessary for today's visit. Caity Coet APRN.OLIVING MACHINE OPERATOR documented in this encounter [facility] 12-12-2024 History of Presen t illness Narrative Patient is here for IVAD port flush/blood draw per [facility] [place] protocol. IVAD is located in left upper [...] tolerated procedure well. documented in this encounter [facility] 11-21-2024 History of Presen t illness Narrative Chief Complaint Patient presents with: Established Patient HPI: Renate Christiansen is a 69 year old female who presents here today for evaluation for treatment tomorrow. Per Dr. Rivers's previous note: H/o discovered a lump on the lower inner portion of her right breast in the fall of 2015. She was seen at [facility] and underwent a right sided core biopsy on 02/16/2016 by interventional radiology. The tissue specimen demonstrated invasive ductal carcinoma, Oakwood grade 2. ER positive (90%, very weak) and MS negative (0%). HER-2 was quantified at 3+. [...] positive, >90% Ki-67 (30-9) positive, 12% CK8 (79vnxhL93) positive CK5-6 (D5 & 1684) negative Calponin-1 (MY872N) negative P40 (BC28) negative E-Cad (ECH-6) positive MORPHOMETRIC ANALYSIS ER (clone 6F11) 15%, weak intensity MS (clone 16/1E2) 0% Her-2Neu (clone CB11) 3+ Block B Calponin-1 (OX331H) negative P40 (BC28) negative CK8 (88rleiH61) positive INTERPRETATION: A. Right breast 1 o clock, biopsy: Invasive ductal carcinoma, grade 3/3. Positive for estrogen receptors (favorable prognostic indicator). Negative for progesterone receptors (unfavorable prognostic indicator). Positive for overexpression of VJN6gsk. B. Right breast 2 o clock, biopsy: [...] ductal carcinoma (no special type) Histologic Grade (Oakwood grade): Glandular/tubular differentiation - score 3 Nuclear [...] - previously performed on section of tumor ([id number] / [id number]). ER - positive (15%, weak intensity) MS - negative (0%) Her2 krista - positive (3+) Microcalcifications - present in both invasive carcinoma and non-neoplastic tissue. Clinical history - Please make reference to previous specimen ([id number]) right breast at 1 o clock and [...] - 4.00 k/uL 1.02 0.86 (L) 1.08 [place]% % 9.8 10.7 11.8 Abs [place] <0.87 k/uL 0.50 0.40 0.55 Eosin% % [...] pN0(sln) MX ER positive (9%, very weak) MS negative HER overexpressed stage IIA invasive ductal carcinoma the right breast. -Recurrent pT2(m) pN0 (none of 5 LNs) MX ER +(15%, weak intensity)/MS negative (0%) HER2 3+ invasive ductal carcinoma [...] pt. - ECHO done in September at [facility]. Next due in December. - Continue [...] Caity Cote APRN.ALESSANDRO documented in this encounter [facility] 11-15-2024 History of Presen t illness Narrative [...] been reviewed prior to dispensing the medication. 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 [facility] SPECIALTY CLINICAL ASSESSMENT - HEMATOLOGY ONCOLOGY V7 Date of influenza vaccination reminder: 02/21/2024 Date of most recent vaccination assessment: 02/21/2024 Treatment Plan Information: Diagnosis: metastatic recurrence of ER+. MS-, Her2+ breast cancer Previous treatment(s): - Right [...] hx of coronary artery disease), GI toxicity, ykgk-gna-fyku syndrome (onset ~79 days), hepatotoxicity (onset ~64 [...] toxicity Mae Wise documented in this encounter [facility] 11-14-2024 Telephone encounter Note Rx was sent on 11/09/2024 Refused this refill Chrissie Elliott LPN [facility] 11-14-2024 Miscellaneous Notes Rx was sent on 11/09/2024 Refused this refill Chrissie Elliott LPN documented in this encounter [facility] 11-09-2024 Telephone encounter Note Prescription Refill Information [...] Elliott LPN November 09, 2024 7:26 AM [facility] 11-09-2024 Miscellaneous Notes Prescription Refill Information The [...] 2024 7:26 AM documented in this encounter [facility] 10-31-2024 History of Presen t illness Narrative Chief Complaint Patient presents with: Recheck HPI: Renate Christiansen is a 69 year old female who presents here today for evaluation for treatment tomorrow. Per Dr. Rivers's previous note: H/o discovered a lump on the lower inner portion of her right breast in the fall of 2015. She was seen at [facility] and underwent a right sided core biopsy on 02/16/2016 by interventional radiology. The tissue specimen demonstrated invasive ductal carcinoma, Yohan grade 2. ER positive (90%, very weak) and MS negative (0%). HER-2 was quantified at 3+. [...] positive, >90% Ki-67 (30-9) positive, 12% CK8 (05ayrmH10) positive CK5-6 (D5 & 1684) negative Calponin-1 (HY550M) negative P40 (BC28) negative E-Cad (ECH-6) positive MORPHOMETRIC ANALYSIS ER (clone 6F11) 15%, weak intensity MS (clone 16/1E2) 0% Her-2Neu (clone CB11) 3+ Block B Calponin-1 (OX301V) negative P40 (BC28) negative CK8 (54edreZ33) positive INTERPRETATION: A. Right breast 1 o clock, biopsy: Invasive ductal carcinoma, grade 3/3. Positive for estrogen receptors (favorable prognostic indicator). Negative for progesterone receptors (unfavorable prognostic indicator). Positive for overexpression of FTH3eyi. B. Right breast 2 o clock, biopsy: [...] ductal carcinoma (no special type) Histologic Grade (Oakwood grade): Glandular/tubular differentiation - score 3 Nuclear [...] - previously performed on section of tumor ([id number] / [id number]). ER - positive (15%, weak intensity) MS - negative (0%) Her2 krista - positive (3+) Microcalcifications - present in both invasive carcinoma and non-neoplastic tissue. Clinical history - Please make reference to previous specimen ([id number]) right breast at 1 o clock and [...] 4.00 k/uL 0.82 (L) 1.02 0.86 (L) [place]% % 11.3 9.8 10.7 Abs [place] <0.87 k/uL 0.53 0.50 0.40 Eosin% % [...] pN0(sln) MX ER positive (9%, very weak) MS negative HER overexpressed stage IIA invasive ductal carcinoma the right breast. -Recurrent pT2(m) pN0 (none of 5 LNs) MX ER +(15%, weak intensity)/MS negative (0%) HER2 3+ invasive ductal carcinoma [...] pending. - ECHO done in September at [facility]. Next due in December. - Continue [...] as necessary for today's visit. Caity Cote APRN.OLIVING MACHINE OPERATOR documented in this encounter [facility] 10-10-2024 History of Presen t illness Narrative Chief Complaint Patient presents with: Established Patient HPI: Renate Christiansen is a 69 year old female who presents here today for evaluation for treatment tomorrow. Per Dr. Rivers's previous note: H/o discovered a lump on the lower inner portion of her right breast in the fall of 2015. She was seen at [facility] and underwent a right sided core biopsy on 02/16/2016 by interventional radiology. The tissue specimen demonstrated invasive ductal carcinoma, Yohan grade 2. ER positive (90%, very weak) and MS negative (0%). HER-2 was quantified at 3+. [...] positive, >90% Ki-67 (30-9) positive, 12% CK8 (15zwstM85) positive CK5-6 (D5 & 1684) negative Calponin-1 (YI749V) negative P40 (BC28) negative E-Cad (ECH-6) positive MORPHOMETRIC ANALYSIS ER (clone 6F11) 15%, weak intensity MS (clone 16/1E2) 0% Her-2Neu (clone CB11) 3+ Block B Calponin-1 (EP486U) negative P40 (BC28) negative CK8 (79eexuX48) positive INTERPRETATION: A. Right breast 1 o clock, biopsy: Invasive ductal carcinoma, grade 3/3. Positive for estrogen receptors (favorable prognostic indicator). Negative for progesterone receptors (unfavorable prognostic indicator). Positive for overexpression of JQK5jyp. B. Right breast 2 o clock, biopsy: [...] - previously performed on section of tumor ([id number] / [id number]). ER - positive (15%, weak intensity) MS - negative (0%) Her2 krista - positive (3+) Microcalcifications - present in both invasive carcinoma and non-neoplastic tissue. Clinical history - Please make reference to previous specimen ([id number]) right breast at 1 o clock and [...] 4.00 k/uL 0.78 (L) 0.82 (L) 1.02 [place]% % 12.4 11.3 9.8 Abs [place] <0.87 k/uL 0.43 0.53 0.50 Eosin% % [...] pN0(sln) MX ER positive (9%, very weak) MS negative HER overexpressed stage IIA invasive ductal carcinoma the right breast. -Recurrent pT2(m) pN0 (none of 5 LNs) MX ER +(15%, weak intensity)/MS negative (0%) HER2 3+ invasive ductal carcinoma [...] pt. - ECHO done in September at [facility]. Next due in December. - Continue [...] as necessary for today's visit. Caity Cote APRN.OLIVING MACHINE OPERATOR documented in this encounter [facility] 10-03-2024 History of Presen t illness Narrative Chief Complaint Patient presents with: Established Patient HPI: Renate Christiansen is a 68 year old female who presents here today for evaluation for treatment tomorrow. Per Dr. Rivers's previous note: H/o discovered a lump on the lower inner portion of her right breast in the fall of 2015. She was seen at [facility] and underwent a right sided core biopsy on 02/16/2016 by interventional radiology. The tissue specimen demonstrated invasive ductal carcinoma, Yohan grade 2. ER positive (90%, very weak) and MS negative (0%). HER-2 was quantified at 3+. [...] positive, >90% Ki-67 (30-9) positive, 12% CK8 (09ivhuM86) positive CK5-6 (D5 & 1684) negative Calponin-1 (RB967D) negative P40 (BC28) negative E-Cad (ECH-6) positive MORPHOMETRIC ANALYSIS ER (clone 6F11) 15%, weak intensity MS (clone 16/1E2) 0% Her-2Neu (clone CB11) 3+ Block B Calponin-1 (BH311F) negative P40 (BC28) negative CK8 (75cekoF37) positive INTERPRETATION: A. Right breast 1 o clock, biopsy: Invasive ductal carcinoma, grade 3/3. Positive for estrogen receptors (favorable prognostic indicator). Negative for progesterone receptors (unfavorable prognostic indicator). Positive for overexpression of XII4dhk. B. Right breast 2 o clock, biopsy: [...] ductal carcinoma (no special type) Histologic Grade (Oakwood grade): Glandular/tubular differentiation - score 3 Nuclear [...] - previously performed on section of tumor ([id number] / [id number]). ER - positive (15%, weak intensity) MS - negative (0%) Her2 krista - positive (3+) Microcalcifications - present in both invasive carcinoma and non-neoplastic tissue. Clinical history - Please make reference to previous specimen ([id number]) right breast at 1 o clock and [...] pN0(sln) MX ER positive (9%, very weak) MS negative HER overexpressed stage IIA invasive ductal carcinoma the right breast. -Recurrent pT2(m) pN0 (none of 5 LNs) MX ER +(15%, weak intensity)/MS negative (0%) HER2 3+ invasive ductal carcinoma [...] call office with any questions/concerns. Quita Hoff APRN.OLIVING MACHINE OPERATOR I spent a total of 30 minutes on the date of the service which included preparing to see the patient, [id number] patient care, completing clinical documentation, obtaining and/or [...] of this patient. documented in this encounter [facility] 2024 Evaluation + Plan note Associated Problem(s): Malignant neoplasm metastatic to both lungs [facility] Work Phone: 2024 Evaluation + Plan note Associated Problem(s): Heart disease T [facility] Work Phone: 2024 History of Presen [...] youngest grandson to graduate Urgent care in [place] Cxr showed atelectasis Last CT chest 2024 [...] hemo onc Dr Rivers Patient Care Team: Eliot Billingsley MD as PCP - General (Family [...] Heart disease documented in this encounter [facility] Work Phone: 2024 Miscellaneous Notes Associated Problem(s): Malignant neoplasm metastatic to both lungs Associated Problem(s): Heart disease documented in this encounter [facility] Work Phone: 09-26-2024 Telephone encounter Note Patient was prescribed doxycycline. Patient informed she should case picker and start. Per Dr. Rivers, delay cycle by 1 week; she will be short 1 day of pills for her next cycle. PSS- please contact patient today or tomorrow to get appointments rescheduled; labs/OV/treatment. OV can be with an DOCUMENTATION SPEC if needed. Thank you. Carla Almonte RN [facility] 09-26-2024 Miscellaneous Notes Patient was prescribed doxycycline. Patient informed she should case picker and start. Per Dr. Rivers, delay cycle by 1 week; she will be short 1 day of pills for her next cycle. PSS- please contact patient today or tomorrow to get appointments rescheduled; labs/OV/treatment. OV can be with an DOCUMENTATION SPEC if needed. Thank you. Carla Almonte RN Patient called stating provider informed her she may have pneumonia and that an antibiotic has been ordered. Patient wants to be sure it is okay with Dr. Rivers before she picks it up. Patient went to the [facility]. Temperature was 101.4 F. CXR still pending. Influenza was negative. Patient stated she was swabbed for COVID as well but the results won't be back until tomorrow. Carla Almonte RN [facility] Care Coordination FOLLOW-UP NOTE Care Coordination Plan: patient informed of Dr. Rivers's response, stated understanding. Carla Almonte RN September 26, 2024 I think it best that she get checked at urgent care. Rip Rivers DO Patient states Covid test came back negative. Care Coordination Triage Note [facility] [place] Situation: Patient reports Fever, cough, congestion, runny [...] 100.8. She is going to have spouse case picker covid test. documented in this encounter [facility] 09-26-2024 Telephone encounter Note Patient called stating provider informed her she may have pneumonia and that an antibiotic has been ordered. Patient wants to be sure it is okay with Dr. Rivers before she picks it up. [facility] Work Phone: 09-26-2024 Telephone encounter Note Patient went to the [facility]. Temperature was 101.4 F. CXR still pending. Influenza was negative. Patient stated she was swabbed for COVID as well but the results won't be back until tomorrow. Carla Almonte RN [facility] 09-26-2024 Telephone encounter Note [place] Care Coordination FOLLOW-UP NOTE Care Coordination Plan: patient informed of Dr. Rivers's response, stated understanding. Carla Almonte RN September 26, 2024 [facility] 09-26-2024 Telephone encounter Note I think it best that she get checked at urgent care. Rip Rivers DO [facility] 09-26-2024 Telephone encounter Note Patient states Covid test came back negative. [facility] 09-26-2024 Telephone encounter Note Care Coordination Triage Note [facility] [place] Situation: Patient reports Fever, cough, congestion, runny [...] Almonte RN September 26, 2024 9:19 AM [facility] 09-26-2024 Telephone encounter Note Patient called to cancel lab and office visit today, treatment for tomorrow. States she is running fever of 100.8. She is going to have spouse case picker covid test. T [facility] 09-17-2024 History of Presen t illness Narrative [...] been reviewed prior to dispensing the medication. 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 [facility] CLINICAL ASSESSMENT - HEMATOLOGY ONCOLOGY V6: Assessment to use: Refill Date of influenza vaccination reminder: 02/21/2024 Date of most recent vaccination assessment: 02/21/2024 Treatment Plan Information: Diagnosis: metastatic recurrence of ER+. MS-, Her2+ breast cancer Previous treatment(s): - Right [...] hx of coronary artery disease), GI toxicity, qdch-hsm-tivo syndrome (onset ~79 days), hepatotoxicity (onset ~64 [...] toxicity Kaycee Juares documented in this encounter [facility] 09-05-2024 History of Presen t illness Narrative Chief Complaint Patient presents with: Established Patient HPI: Renate Christiansen is a 68 year old female who presents here today for evaluation for treatment tomorrow. Per Dr. Rivers's previous note: H/o discovered a lump on the lower inner portion of her right breast in the fall of 2015. She was seen at [facility] and underwent a right sided core biopsy on 02/16/2016 by interventional radiology. The tissue specimen demonstrated invasive ductal carcinoma, Yohan grade 2. ER positive (90%, very weak) and MS negative (0%). HER-2 was quantified at 3+. [...] positive, >90% Ki-67 (30-9) positive, 12% CK8 (37icldA01) positive CK5-6 (D5 & 1684) negative Calponin-1 (KC652E) negative P40 (BC28) negative E-Cad (ECH-6) positive MORPHOMETRIC ANALYSIS ER (clone 6F11) 15%, weak intensity MS (clone 16/1E2) 0% Her-2Neu (clone CB11) 3+ Block B Calponin-1 (CG463W) negative P40 (BC28) negative CK8 (31dylaO48) positive INTERPRETATION: A. Right breast 1 o clock, biopsy: Invasive ductal carcinoma, grade 3/3. Positive for estrogen receptors (favorable prognostic indicator). Negative for progesterone receptors (unfavorable prognostic indicator). Positive for overexpression of OTV5jtz. B. Right breast 2 o clock, biopsy: [...] ductal carcinoma (no special type) Histologic Grade (Oakwood grade): Glandular/tubular differentiation - score 3 Nuclear [...] - previously performed on section of tumor ([id number] / [id number]). ER - positive (15%, weak intensity) MS - negative (0%) Her2 krista - positive (3+) Microcalcifications - present in both invasive carcinoma and non-neoplastic tissue. Clinical history - Please make reference to previous specimen ([id number]) right breast at 1 o clock and [...] 4.00 k/uL 0.83 (L) 1.00 0.78 (L) [place]% % 13.0 12.2 12.4 Abs [place] <0.87 k/uL 0.42 0.46 0.43 Eosin% % [...] pN0(sln) MX ER positive (9%, very weak) MS negative HER overexpressed stage IIA invasive ductal carcinoma the right breast. -Recurrent pT2(m) pN0 (none of 5 LNs) MX ER +(15%, weak intensity)/MS negative (0%) HER2 3+ invasive ductal carcinoma [...] Caity Cote APRN.ALESSANDRO documented in this encounter [facility] 08-30-2024 History of Presen t illness Narrative [...] PATIENT PRESENTS WITH AN IMPLANTABLE OR ATTACHED LICENSED PSYCHOLOGIST: No RADIOLOGY DEPARTMENT: CT; Exam(s) Completed: Chest Abdomen Pelvis PERIPHERAL IV DATA: power ort accessed by [employer] SIGNED BY: RT Ashley(R) August 30, 2024 2:27 PM documented in this encounter [facility] 08-30-2024 History of Presen t illness Narrative Patient is here for IVAD port flush/blood draw per [facility] [place] protocol. IVAD is located in left upper [...] tolerated procedure well. documented in this encounter [facility] 08-30-2024 History of Presen t illness Narrative [...] PATIENT PRESENTS WITH AN IMPLANTABLE OR ATTACHED LICENSED PSYCHOLOGIST: No RADIOLOGY DEPARTMENT: Ultrasound PERIPHERAL IV DATA: Not applicable SIGNED BY: Bridget Hall RDMS August 30, 2024 8:04 AM documented in this encounter [facility] 08-29-2024 Telephone encounter Note Patient scheduled for 9:00. Send patient to hem/onc after she gets prep. [facility] Work Phone: 08-29-2024 Miscellaneous Notes Patient scheduled for 9:00. Send patient to hem/onc after she gets prep. Pt would like to use port for appt on 08/30/[address] She has an US appt at 7:45 can the port be after that and before the prep time at 8:20am Please call pt to confirm time documented in this encounter [facility] 08-29-2024 Telephone encounter Note Pt would like to use port for appt on 08/30/[address] She has an US appt at 7:45 can the port be after that and before the prep time at 8:20am Please call pt to confirm time [facility] 08-27-2024 History of Presen t illness Narrative [...] been reviewed prior to dispensing the medication. 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 [facility] SPECIALTY CLINICAL ASSESSMENT - HEMATOLOGY ONCOLOGY V6: Assessment to use: Refill Date of influenza vaccination reminder: 02/21/2024 Date of most recent vaccination assessment: 02/21/2024 Treatment Plan Information: Diagnosis: metastatic recurrence of ER+. MS-, Her2+ breast cancer Previous treatment(s): - Right [...] hx of coronary artery disease), GI toxicity, iwzg-llz-xvyb syndrome (onset ~79 days), hepatotoxicity (onset ~64 [...] toxicity Kaycee Juares documented in this encounter [facility] 08-16-2024 History of Presen t illness Narrative Office visit with Dr. Rivers on 08/15/24. Assessment reviewed and unchanged. Office visit with Dr. Rivers on 08/15/24. Assessment reviewed and unchanged. documented in this encounter [facility] 08-15-2024 History of Presen t illness Narrative Oncologic problem(s): 1) Metastatic recurrence of ER positive, MS negative, HER2 positive breast cancer. 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 HPI: The patient is a 68 year old female who discovered a lump on the lower inner portion of her right breast in the fall of 2015. She was seen at [facility] and underwent a right sided core biopsy on 02/16/2016 by interventional radiology. The tissue specimen demonstrated invasive ductal carcinoma, Yohan grade 2. ER positive (90%, very weak) and MS negative (0%). HER-2 was quantified at 3+. [...] positive, >90% Ki-67 (30-9) positive, 12% CK8 (60aelpO10) positive CK5-6 (D5 & 1684) negative Calponin-1 (FS935L) negative P40 (BC28) negative E-Cad (ECH-6) positive MORPHOMETRIC ANALYSIS ER (clone 6F11) 15%, weak intensity MS (clone 16/1E2) 0% Her-2Neu (clone CB11) 3+ Block B Calponin-1 (ZY227X) negative P40 (BC28) negative CK8 (53sythS03) positive INTERPRETATION: A. Right breast 1 o clock, biopsy: Invasive ductal carcinoma, grade 3/3. Positive for estrogen receptors (favorable prognostic indicator). Negative for progesterone receptors (unfavorable prognostic indicator). Positive for overexpression of ZLA6iiw. B. Right breast 2 o clock, biopsy: [...] ductal carcinoma (no special type) Histologic Grade (Oakwood grade): Glandular/tubular differentiation - score 3 Nuclear [...] - previously performed on section of tumor ([id number] / [id number]). ER - positive (15%, weak intensity) MS - negative (0%) Her2 krista - positive (3+) Microcalcifications - present in both invasive carcinoma and non-neoplastic tissue. Clinical history - Please make reference to previous specimen ([id number]) right breast at 1 o clock and [...] 45% with mild global hypokinesis. managed with beta-rtuh and ARB. 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 Now started 3/10. No diarrhea now. No symptoms of HFS. [...] pN0(sln) MX ER positive (9%, very weak) MS negative HER overexpressed stage IIA invasive ductal carcinoma the right breast. -Recurrent pT2(m) pN0 (none of 5 LNs) MX ER +(15%, weak intensity)/MS negative (0%) HER2 3+ invasive ductal carcinoma [...] Rip Rivers DO documented in this encounter [facility] 08-07-2024 Telephone encounter Note Prescription Refill Information [...] Elliott LPN August 07, 2024 7:35 AM [facility] 08-07-2024 Miscellaneous Notes Prescription Refill Information The [...] 2024 7:35 AM documented in this encounter [facility] 08-07-2024 Telephone encounter Note Prescription Refill Information [...] Elliott LPN August 07, 2024 7:31 AM [facility] 08-07-2024 Miscellaneous Notes Prescription Refill Information The [...] 2024 7:31 AM documented in this encounter [facility] 07-27-2024 Telephone encounter Note SOCIAL WORK FOLLOW UP NOTE: [facility] Faxed to [employer] 07/17/24. Sent to internal scanning. SHANE Leahy [facility] 07-27-2024 Miscellaneous Notes SOCIAL WORK FOLLOW UP NOTE: [facility] Faxed to [employer] 07/17/24. Sent to internal scanning. SHANE Leahy Printed. Rip Rivers DO SOCIAL WORK FOLLOW UP NOTE: [facility] Patient assistance [employer] is asking for a printed script of pt's Victorinokysa. Can you please include enough refills for the year? Thank you, SHANE Leahy documented in this encounter [facility] 07-25-2024 History of Presen t illness Narrative Renate Christiansen 1955 07/25/2024 HPI: Renate Christiansen is a 68 year old female who presents here today for follow up met. breast cancer. Per Dr. Rivers's previous note: H/o discovered a lump on the lower inner portion of her right breast in the fall of 2015. She was seen at [facility] and underwent a right sided core biopsy on 02/16/2016 by interventional radiology. The tissue specimen demonstrated invasive ductal carcinoma, Yohan grade 2. ER positive (90%, very weak) and MS negative (0%). HER-2 was quantified at 3+. [...] positive, >90% Ki-67 (30-9) positive, 12% CK8 (08ncezK92) positive CK5-6 (D5 & 1684) negative Calponin-1 (TG261Q) negative P40 (BC28) negative E-Cad (ECH-6) positive MORPHOMETRIC ANALYSIS ER (clone 6F11) 15%, weak intensity MS (clone 16/1E2) 0% Her-2Neu (clone CB11) 3+ Block B Calponin-1 (BB854S) negative P40 (BC28) negative CK8 (51xutnV74) positive INTERPRETATION: A. Right breast 1 o clock, biopsy: Invasive ductal carcinoma, grade 3/3. Positive for estrogen receptors (favorable prognostic indicator). Negative for progesterone receptors (unfavorable prognostic indicator). Positive for overexpression of NFC6qhw. B. Right breast 2 o clock, biopsy: [...] - previously performed on section of tumor ([id number] / [id number]). ER - positive (15%, weak intensity) MS - negative (0%) Her2 krista - positive (3+) Microcalcifications - present in both invasive carcinoma and non-neoplastic tissue. Clinical history - Please make reference to previous specimen ([id number]) right breast at 1 o clock and [...] call office with any questions/concerns. Quita Hoff APRN.ALESSANDRO I spent a total of 30 minutes on the date of the service which included preparing to see the patient, [id number]-xp-[id number] patient care, completing clinical documentation, obtaining and/or [...] of this patient. documented in this encounter [facility] 07-17-2024 Telephone encounter Note Printed. Rip Rivers DO [facility] 07-17-2024 Telephone encounter Note SOCIAL WORK FOLLOW UP NOTE: [facility] Patient assistance company is asking for a printed script of pt's Tukysa. Can you please include enough refills for the year? Thank you, SHANE Leahy [facility] 07-04-2024 Telephone encounter Note SOCIAL WORK FOLLOW UP NOTE: [facility] Date of service: July 04, 2024 Renate [...] well. Once completed, SW will fax to [employer] and send to internal scanning. No other needs identified at this time. PLAN: Continue follow up as needed F/U APPOINTMENT: PRN Assigned SW listed in Care Team tab: Yes SHANE Leahy [facility] 07-04-2024 Miscellaneous Notes SOCIAL WORK FOLLOW UP NOTE: [facility] Date of service: July 04, 2024 Renate [...] well. Once completed, SW will fax to [employer] and send to internal scanning. No other needs identified at this time. PLAN: Continue follow up as needed F/U APPOINTMENT: PRN Assigned SW listed in Care Team tab: Yes DIO Leahy-Sami documented in this encounter [facility] 07-04-2024 History of Presen t illness Narrative Chief Complaint Patient presents with: Established Patient HPI: Renate Christiansen is a 68 year old female who presents here today for follow up met. breast cancer. Per Dr. Rivers's previous note: H/o discovered a lump on the lower inner portion of her right breast in the fall of 2015. She was seen at [facility] and underwent a right sided core biopsy on 02/16/2016 by interventional radiology. The tissue specimen demonstrated invasive ductal carcinoma, [place] grade 2. ER positive (90%, very weak) and MS negative (0%). HER-2 was quantified at 3+. [...] positive, >90% Ki-67 (30-9) positive, 12% CK8 (46hqaoX93) positive CK5-6 (D5 & 1684) negative Calponin-1 (AP316C) negative P40 (BC28) negative E-Cad (ECH-6) positive MORPHOMETRIC ANALYSIS ER (clone 6F11) 15%, weak intensity MS (clone 16/1E2) 0% Her-2Neu (clone CB11) 3+ Block B Calponin-1 (VR849H) negative P40 (BC28) negative CK8 (03snbgA18) positive INTERPRETATION: A. Right breast 1 o clock, biopsy: Invasive ductal carcinoma, grade 3/3. Positive for estrogen receptors (favorable prognostic indicator). Negative for progesterone receptors (unfavorable prognostic indicator). Positive for overexpression of PKQ8sab. B. Right breast 2 o clock, biopsy: [...] - previously performed on section of tumor ([id number] / [id number]). ER - positive (15%, weak intensity) MS - negative (0%) Her2 krista - positive (3+) Microcalcifications - present in both invasive carcinoma and non-neoplastic tissue. Clinical history - Please make reference to previous specimen ([id number]) right breast at 1 o clock and [...] k/uL 0.65 (L) 0.77 (L) 0.93 (L) [place]% % 15.6 14.6 12.3 Abs [place] <0.87 k/uL 0.56 0.51 0.42 Eosin% % [...] Caity Cote APRN.ALESSANDRO documented in this encounter [facility] 07-04-2024 History of Presen t illness Narrative Patient is here for IVAD port flush/blood draw per [facility] [place] protocol. IVAD is located in left upper [...] tolerated procedure well. documented in this encounter [facility] 06-29-2024 Telephone encounter Note The following approved [...] mg total. Authorizing Provider: RIP RIVERS DO [facility] 06-29-2024 Miscellaneous Notes The following approved medication [...] it is [employer]. documented in this encounter [facility] 06-29-2024 Telephone encounter Note Rx pended. Jazlyn Harding LPN [facility] 06-29-2024 Telephone encounter Note Patient calling for refill of Tukysa. Patient states it is free from pharm. Patient states it is [employer]. [facility] Work Phone: 06-29-2024 History of Presen t [...] Demerol [Meperidine* Unknown Erythromycin Unknown Latex Rash [place] [Hydrocodone-* Hives [place] [Nalbuphine * Unknown Paxlovid [Nirmatrel* Intolerance Kidneys shut down Percocet [Oxycodone* Rash, Itching Ama Other: See Comments Migraine headache Sulfa (Sulfonamide [...] the medication. 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 [facility] CLINICAL ASSESSMENT - HEMATOLOGY ONCOLOGY [...] Plan Information: Diagnosis: metastatic recurrence of ER+. MS-, Her2+ breast cancer Previous treatment(s): - Right [...] hx of coronary artery disease), GI toxicity, yavu-wbg-yapf syndrome (onset ~79 days), hepatotoxicity (onset ~64 [...] toxicity Madhavi Corrales documented in this encounter [facility] 06-14-2024 History of Presen t illness Narrative Pt stated no changes to assessment from OV yesterday. Lexie Hartley RN documented in this encounter [facility] 06-13-2024 History of Presen t illness Narrative Oncologic problem(s): 1) Metastatic recurrence of ER positive, MS negative, HER2 positive breast cancer. 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 HPI: The patient is a 68 year old female who discovered a lump on the lower inner portion of her right breast in the fall of 2015. She was seen at [facility] and underwent a right sided core biopsy on 02/16/2016 by interventional radiology. The tissue specimen demonstrated invasive ductal carcinoma, Yohan grade 2. ER positive (90%, very weak) and MS negative (0%). HER-2 was quantified at 3+. [...] positive, >90% Ki-67 (30-9) positive, 12% CK8 (24frwzQ16) positive CK5-6 (D5 & 1684) negative Calponin-1 (FJ112P) negative P40 (BC28) negative E-Cad (ECH-6) positive MORPHOMETRIC ANALYSIS ER (clone 6F11) 15%, weak intensity MS (clone 16/1E2) 0% Her-2Neu (clone CB11) 3+ Block B Calponin-1 (AF491A) negative P40 (BC28) negative CK8 (12kkusD56) positive INTERPRETATION: A. Right breast 1 o clock, biopsy: Invasive ductal carcinoma, grade 3/3. Positive for estrogen receptors (favorable prognostic indicator). Negative for progesterone receptors (unfavorable prognostic indicator). Positive for overexpression of CWH3zps. B. Right breast 2 o clock, biopsy: [...] ductal carcinoma (no special type) Histologic Grade (Oakwood grade): Glandular/tubular differentiation - score 3 Nuclear [...] - previously performed on section of tumor ([id number] / [id number]). ER - positive (15%, weak intensity) MS - negative (0%) Her2 krista - positive (3+) Microcalcifications - present in both invasive carcinoma and non-neoplastic tissue. Clinical history - Please make reference to previous specimen ([id number]) right breast at 1 o clock and [...] pN0(sln) MX ER positive (9%, very weak) MS negative HER overexpressed stage IIA invasive ductal carcinoma the right breast. -Recurrent pT2(m) pN0 (none of 5 LNs) MX ER +(15%, weak intensity)/MS negative (0%) HER2 3+ invasive ductal carcinoma [...] Rip Rivers DO documented in this encounter [facility] 06-04-2024 History of Presen t illness Narrative [...] been reviewed prior to dispensing the medication. 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 [facility] CLINICAL ASSESSMENT - HEMATOLOGY ONCOLOGY V6: Assessment to use: Refill Date of influenza vaccination reminder: 02/21/2024 Date of most recent vaccination assessment: 02/21/2024 Treatment Plan Information: Diagnosis: metastatic recurrence of ER+. MS-, Her2+ breast cancer Previous treatment(s): - Right [...] hx of coronary artery disease), GI toxicity, dwzz-gez-tbyq syndrome (onset ~79 days), hepatotoxicity (onset ~64 [...] toxicity Crystal Fuentes documented in this encounter [facility] 05-29-2024 Telephone encounter Note SOCIAL WORK FOLLOW UP NOTE: [facility] Enrollment form drafted and awaiting signature from pt and provider. Will fax once completed. SHANE Leahy [facility] 05-29-2024 Miscellaneous Notes SOCIAL WORK FOLLOW UP NOTE: [facility] Enrollment form drafted and awaiting signature from pt and provider. Will fax once completed. SHANE Leahy Pt is needing re enrollment form for 2024 for [employer]. New form can be found on [employer]. Please fax to [phone]. Thank you documented in this encounter [facility] 05-28-2024 Telephone encounter Note Pt is needing re enrollment form for 2024 for [employer]. New form can be found on [employer]. Please fax to [phone]. Thank you [facility] 05-23-2024 History of Presen t illness Narrative Oncologic problem(s): 1) Metastatic recurrence of ER positive, MS negative, HER2 positive breast cancer. 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 HPI: The patient is a 68 year old female who discovered a lump on the lower inner portion of her right breast in the fall of 2015. She was seen at [facility] and underwent a right sided core biopsy on 02/16/2016 by interventional radiology. The tissue specimen demonstrated invasive ductal carcinoma, Yohan grade 2. ER positive (90%, very weak) and MS negative (0%). HER-2 was quantified at 3+. [...] positive, >90% Ki-67 (30-9) positive, 12% CK8 (76qpaiY30) positive CK5-6 (D5 & 1684) negative Calponin-1 (KB494I) negative P40 (BC28) negative E-Cad (ECH-6) positive MORPHOMETRIC ANALYSIS ER (clone 6F11) 15%, weak intensity MS (clone 16/1E2) 0% Her-2Neu (clone CB11) 3+ Block B Calponin-1 (FN253I) negative P40 (BC28) negative CK8 (90nnvpJ47) positive INTERPRETATION: A. Right breast 1 o clock, biopsy: Invasive ductal carcinoma, grade 3/3. Positive for estrogen receptors (favorable prognostic indicator). Negative for progesterone receptors (unfavorable prognostic indicator). Positive for overexpression of EFD6rlc. B. Right breast 2 o clock, biopsy: [...] ductal carcinoma (no special type) Histologic Grade (Oakwood grade): Glandular/tubular differentiation - score 3 Nuclear [...] - previously performed on section of tumor ([id number] / [id number]). ER - positive (15%, weak intensity) MS - negative (0%) Her2 krista - positive (3+) Microcalcifications - present in both invasive carcinoma and non-neoplastic tissue. Clinical history - Please make reference to previous specimen ([id number]) right breast at 1 o clock and [...] pN0(sln) MX ER positive (9%, very weak) MS negative HER overexpressed stage IIA invasive ductal carcinoma the right breast. -Recurrent pT2(m) pN0 (none of 5 LNs) MX ER +(15%, weak intensity)/MS negative (0%) HER2 3+ invasive ductal carcinoma the right breast while on AI (anastrozole). Posterior margin positive--more than just focal according to pathologist. Pectoralis fascia rem she calixot. Staging workup revealed multiple lung metastases, not [...] the date of the service which included etis-lc-xxzk patient care, completing clinical documentation, performing a medically appropriate examination, counseling and educating the patient/family/caregiver, ordering medications, tests, or procedures, communicating with other HCPs (not separately reported), and communicating results to the patient/family/caregiver. Rip Rivers DO documented in this encounter [facility] 05-23-2024 History of Presen t illness Narrative [...] Ana Velásquez RN documented in this encounter [facility] 05-14-2024 History of Presen t illness Narrative [...] been reviewed prior to dispensing the medication. 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 Assessment Patient confirmed: Yes Med/dose confirmed: Yes Supplies needed: No supplies needed Missed doses: Yes Count of missed doses: 1 Reason for missed doses: Forgot dose Estimated days supply on hand: 0 (#3 on hand) Next cycle/dose due: 05/21/24 Copay amount: 0 Delivery method: FedEx Signature required: Waived on patient request Delivery address: [address] [place] [address] Delivery date: 05/17/24 Questions or concerns for [...] facility-administered medications on file prior to visit. [facility] CLINICAL ASSESSMENT - HEMATOLOGY ONCOLOGY V6: Assessment to use: Refill Date of influenza vaccination reminder: 02/21/2024 Date of most recent vaccination assessment: 02/21/2024 Treatment Plan Information: Diagnosis: metastatic recurrence of ER+. MS-, Her2+ breast cancer Previous treatment(s): - Right [...] hx of coronary artery disease), GI toxicity, cuet-cnp-iywa syndrome (onset ~79 days), hepatotoxicity (onset ~64 [...] toxicity Shanna Davis documented in this encounter [facility] 05-04-2024 History of Presen t illness Narrative . documented in this encounter [facility] 05-04-2024 Telephone encounter Note Prescription Refill Information [...] Elliott LPN May 04, 2024 7:52 AM [facility] 05-04-2024 Miscellaneous Notes Prescription Refill Information The [...] 2024 7:52 AM documented in this encounter [facility] 05-02-2024 History of Presen t illness Narrative Oncologic problem(s): 1) Metastatic recurrence of ER positive, MS negative, HER2 positive breast cancer. 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 HPI: The patient is a 68 year old female who discovered a lump on the lower inner portion of her right breast in the fall of 2015. She was seen at [facility] and underwent a right sided core biopsy on 02/16/2016 by interventional radiology. The tissue specimen demonstrated invasive ductal carcinoma, Oakwood grade 2. ER positive (90%, very weak) and MS negative (0%). HER-2 was quantified at 3+. [...] positive, >90% Ki-67 (30-9) positive, 12% CK8 (61yfqtU12) positive CK5-6 (D5 & 1684) negative Calponin-1 (VC986M) negative P40 (BC28) negative E-Cad (ECH-6) positive MORPHOMETRIC ANALYSIS ER (clone 6F11) 15%, weak intensity MS (clone 16/1E2) 0% Her-2Neu (clone CB11) 3+ Block B Calponin-1 (YQ214L) negative P40 (BC28) negative CK8 (85znimC67) positive INTERPRETATION: A. Right breast 1 o clock, biopsy: Invasive ductal carcinoma, grade 3/3. Positive for estrogen receptors (favorable prognostic indicator). Negative for progesterone receptors (unfavorable prognostic indicator). Positive for overexpression of QMA1crx. B. Right breast 2 o clock, biopsy: [...] - previously performed on section of tumor ([id number] / [id number]). ER - positive (15%, weak intensity) MS - negative (0%) Her2 krista - positive (3+) Microcalcifications - present in both invasive carcinoma and non-neoplastic tissue. Clinical history - Please make reference to previous specimen ([id number]) right breast at 1 o clock and [...] pN0(sln) MX ER positive (9%, very weak) MS negative HER overexpressed stage IIA invasive ductal carcinoma the right breast. -Recurrent pT2(m) pN0 (none of 5 LNs) MX ER +(15%, weak intensity)/MS negative (0%) HER2 3+ invasive ductal carcinoma [...] Rip Rivers DO documented in this encounter [facility] 04-24-2024 History of Presen t illness Narrative [...] PATIENT PRESENTS WITH AN IMPLANTABLE OR ATTACHED LICENSED PSYCHOLOGIST: No RADIOLOGY DEPARTMENT: CT; Exam(s) Completed: Chest Abdomen Pelvis PERIPHERAL IV DATA: power port accessed by [employer] SIGNED BY: RT Ashley(R) April 24, 2024 11:09 AM documented in this encounter [facility] 04-23-2024 Telephone encounter Note Scheduled. Patient informed. [facility] Work Phone: 04-23-2024 Miscellaneous Notes Scheduled. Patient informed. Pt would like to use port for appt on 04/24/[address] @ 9:20 drink 10:20 scan Please call pt to confirm time documented in this encounter [facility] 04-23-2024 Telephone encounter Note Pt would like to use port for appt on 04/24/[address] @ 9:20 drink 10:20 scan Please call pt to confirm time [facility] 04-20-2024 History of Presen t illness Narrative [...] been reviewed prior to dispensing the medication. 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 Assessment Patient confirmed: Yes Med/dose confirmed: Yes Supplies needed: No supplies needed Missed doses: No Estimated days supply on hand: 2 Next cycle/dose due: 04/30/24 Copay amount: 0 Delivery method: FedEx Signature required: Waived on patient request Delivery address: [address] [place] [id number] Delivery date: 04/26/24 Questions or concerns for [...] facility-administered medications on file prior to visit. [facility] CLINICAL ASSESSMENT - HEMATOLOGY ONCOLOGY V6: Assessment to use: Refill Date of influenza vaccination reminder: 02/21/2024 Date of most recent vaccination assessment: 02/21/2024 Treatment Plan Information: Diagnosis: metastatic recurrence of ER+. MS-, Her2+ breast cancer Previous treatment(s): - Right [...] hx of coronary artery disease), GI toxicity, fdbn-xyd-mfjc syndrome (onset ~79 days), hepatotoxicity (onset ~64 [...] toxicity Crystal Fuentes documented in this encounter [facility] 04-11-2024 History of Presen t illness Narrative Chief Complaint Patient presents with: Established Patient HPI: Renate Christiansen is a 68 year old female who presents here today for evaluation for treatment tomorrow. Per Dr. Rivers's previous note: H/o discovered a lump on the lower inner portion of her right breast in the fall of 2015. She was seen at [facility] and underwent a right sided core biopsy on 02/16/2016 by interventional radiology. The tissue specimen demonstrated invasive ductal carcinoma, Oakwood grade 2. ER positive (90%, very weak) and MS negative (0%). HER-2 was quantified at 3+. [...] positive, >90% Ki-67 (30-9) positive, 12% CK8 (93kjgsP41) positive CK5-6 (D5 & 1684) negative Calponin-1 (VJ247X) negative P40 (BC28) negative E-Cad (ECH-6) positive MORPHOMETRIC ANALYSIS ER (clone 6F11) 15%, weak intensity MS (clone 16/1E2) 0% Her-2Neu (clone CB11) 3+ Block B Calponin-1 (CZ966T) negative P40 (BC28) negative CK8 (25klnsD80) positive INTERPRETATION: A. Right breast 1 o clock, biopsy: Invasive ductal carcinoma, grade 3/3. Positive for estrogen receptors (favorable prognostic indicator). Negative for progesterone receptors (unfavorable prognostic indicator). Positive for overexpression of JTW2kma. B. Right breast 2 o clock, biopsy: [...] ductal carcinoma (no special type) Histologic Grade (Oakwood grade): Glandular/tubular differentiation - score 3 Nuclear [...] - previously performed on section of tumor ([id number] / [id number]). ER - positive (15%, weak intensity) MS - negative (0%) Her2 krista - positive (3+) Microcalcifications - present in both invasive carcinoma and non-neoplastic tissue. Clinical history - Please make reference to previous specimen ([id number]) right breast at 1 o clock and [...] k/uL 0.77 (L) 0.77 (L) 0.79 (L) [place]% % 16.9 12.9 14.1 Abs [place] <0.87 k/uL 0.53 0.40 0.51 Eosin% % [...] as necessary for today's visit. Caity Cote APRN.OLIVING MACHINE OPERATOR documented in this encounter [facility] 04-11-2024 History of Presen t illness Narrative Patient is here for IVAD port flush/blood draw per [facility] [place] [facility] protocol. IVAD is located in right upper [...] tolerated procedure well. documented in this encounter [facility] 03-30-2024 History of Presen t illness Narrative [...] been reviewed prior to dispensing the medication. 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 Assessment Patient confirmed: Yes Med/dose confirmed: Yes Supplies needed: No supplies needed Missed doses: No Estimated days supply on hand: 2 Next cycle/dose due: 03/30/24 Copay amount: 0 Copay form of payment: (NA) Payment confirmed: Yes Delivery method: FedEx Signature required: Waived on patient request Delivery address: [address] [place] [address], [place] [address] Delivery date: 04/05/24 Questions or concerns for [...] facility-administered medications on file prior to visit. [facility] CLINICAL ASSESSMENT - HEMATOLOGY ONCOLOGY V6: Assessment to use: Refill Date of influenza vaccination reminder: 02/21/2024 Date of most recent vaccination assessment: 02/21/2024 Treatment Plan Information: Diagnosis: metastatic recurrence of ER+. MS-, Her2+ breast cancer Previous treatment(s): - Right [...] hx of coronary artery disease), GI toxicity, cvfu-qqf-iswu syndrome (onset ~79 days), hepatotoxicity (onset ~64 [...] Jethro Blackmon RPh documented in this encounter [facility] 03-22-2024 History of Presen t illness Narrative Pt. Was seen by Dr. Rivers yesterday for an office visit. Pt states no changes since yesterday and verbally agrees to treatment. documented in this encounter [facility] 03-21-2024 History of Presen t illness Narrative Oncologic problem(s): 1) Metastatic recurrence of ER positive, MS negative, HER2 positive breast cancer. 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 HPI: The patient is a 68 year old female who discovered a lump on the lower inner portion of her right breast in the fall of 2015. She was seen at [facility] and underwent a right sided core biopsy on 02/16/2016 by interventional radiology. The tissue specimen demonstrated invasive ductal carcinoma, Oakwood grade 2. ER positive (90%, very weak) and MS negative (0%). HER-2 was quantified at 3+. [...] positive, >90% Ki-67 (30-9) positive, 12% CK8 (71hsxiB38) positive CK5-6 (D5 & 1684) negative Calponin-1 (YF444L) negative P40 (BC28) negative E-Cad (ECH-6) positive MORPHOMETRIC ANALYSIS ER (clone 6F11) 15%, weak intensity MS (clone 16/1E2) 0% Her-2Neu (clone CB11) 3+ Block B Calponin-1 (PG944O) negative P40 (BC28) negative CK8 (28sqtmJ76) positive INTERPRETATION: A. Right breast 1 o clock, biopsy: Invasive ductal carcinoma, grade 3/3. Positive for estrogen receptors (favorable prognostic indicator). Negative for progesterone receptors (unfavorable prognostic indicator). Positive for overexpression of XPW9ssd. B. Right breast 2 o clock, biopsy: [...] - previously performed on section of tumor ([id number] / [id number]). ER - positive (15%, weak intensity) MS - negative (0%) Her2 krista - positive (3+) Microcalcifications - present in both invasive carcinoma and non-neoplastic tissue. Clinical history - Please make reference to previous specimen ([id number]) right breast at 1 o clock and [...] subcutaneous metastasis near xyphoid. LABS: Latest Ref [facility] 03/21/2024 WBC 3.70 - 11.00 k/uL 3.11 [...] Lymph 1.00 - 4.00 k/uL 0.77 (L) [place]% % 12.9 Abs [place] <0.87 k/uL 0.40 Eosin% % 6.1 Abs [...] pN0(sln) MX ER positive (9%, very weak) MS negative HER overexpressed stage IIA invasive ductal carcinoma the right breast. -Recurrent pT2(m) pN0 (none of 5 LNs) MX ER +(15%, weak intensity)/MS negative (0%) HER2 3+ invasive ductal carcinoma [...] which included preparing to see the patient, krea-sn-cotd patient care, completing clinical documentation, obtaining and/or reviewing separately obtained history, performing a medically appropriate examination, counseling and educating the patient/family/caregiver, ordering medications, tests, or procedures, communicating with other HCPs (not separately reported), and communicating results to the patient/family/caregiver. Rip Rivers DO documented in this encounter [facility] 03-09-2024 History of Presen t illness Narrative [...] been reviewed prior to dispensing the medication. 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 Assessment Patient confirmed: Yes Med/dose confirmed: Yes Supplies needed: No supplies needed Missed doses: No Estimated days supply on hand: 2 Next cycle/dose due: 03/19/24 Copay amount: 0 Payment confirmed: Yes Delivery method: FedEx Signature required: Waived on patient request Delivery address: [address] [facility] [address] Delivery date: 03/15/24 Questions or concerns for [...] 0.9 % (flush) 10 mL (BD POSIFLUSH) [facility] CLINICAL ASSESSMENT - HEMATOLOGY ONCOLOGY V6: Assessment to use: Refill Date of influenza vaccination reminder: 02/21/2024 Date of most recent vaccination assessment: 02/21/2024 Treatment Plan Information: Diagnosis: metastatic recurrence of ER+. MS-, Her2+ breast cancer Previous treatment(s): - Right [...] hx of coronary artery disease), GI toxicity, qudz-lyj-lufp syndrome (onset ~79 days), hepatotoxicity (onset ~64 [...] disease progression or unacceptable toxicity Rashida Butler ([employer]) documented in this encounter [facility] 02-27-2024 History of Presen t illness Narrative Chief Complaint Patient presents with: Established Patient HPI: Renate Christiansen is a 68 year old female who presents here today for evaluation for treatment tomorrow. Per Dr. Rivers's previous notes: H/o pt. discovered a lump on the lower inner portion of her right breast in the fall of 2015. She was seen at [facility] and underwent a right sided core biopsy on 02/16/2016 by interventional radiology. The tissue specimen demonstrated invasive ductal carcinoma, Yohan grade 2. ER positive (90%, very weak) and MS negative (0%). HER-2 was quantified at 3+. [...] positive, >90% Ki-67 (30-9) positive, 12% CK8 (24gjbeI53) positive CK5-6 (D5 & 1684) negative Calponin-1 (XK476Z) negative P40 (BC28) negative E-Cad (ECH-6) positive MORPHOMETRIC ANALYSIS ER (clone 6F11) 15%, weak intensity MS (clone 16/1E2) 0% Her-2Neu (clone CB11) 3+ Block B Calponin-1 (EY550K) negative P40 (BC28) negative CK8 (21iumuA14) positive INTERPRETATION: A. Right breast 1 o clock, biopsy: Invasive ductal carcinoma, grade 3/3. Positive for estrogen receptors (favorable prognostic indicator). Negative for progesterone receptors (unfavorable prognostic indicator). Positive for overexpression of YVR4mpy. B. Right breast 2 o clock, biopsy: [...] - previously performed on section of tumor ([id number] / [id number]). ER - positive (15%, weak intensity) MS - negative (0%) Her2 krista - positive (3+) Microcalcifications - present in both invasive carcinoma and non-neoplastic tissue. Clinical history - Please make reference to previous specimen ([id number]) right breast at 1 o clock and [...] k/uL 0.79 (L) 0.98 (L) 0.77 (L) [place]% % 15.6 7.0 16.9 Abs [place] <0.87 k/uL 0.52 0.29 0.53 Eosin% % [...] Dr. Rivers 03/21 @ 8:30 and then Apr. OV to me. - Pt. aware to call office with any questions/concerns. The patient indicates understanding of these issues and agrees with the plan. All documentation from previous visit of 02/03/24-Dr. Rivers/myself was copied and pasted, documentation has been reviewed and edited as necessary for today's visit. Caity Cote APRN.OLIVING MACHINE OPERATOR documented in this encounter [facility] 02-03-2024 Telephone encounter Note This was sent in 02/02/2024. Jazlyn Harding LPN [facility] 02-03-2024 Miscellaneous Notes This was sent in 02/02/2024. Jazlyn Harding LPN documented in this encounter [facility] 02-03-2024 History of Presen t illness Narrative Chief Complaint Patient presents with: Established Patient HPI: Renate Christiansen is a 68 year old female who presents here today for evaluation for treatment on Tuesday. Per Dr. Rivers's previous notes: H/o pt. discovered a lump on the lower inner portion of her right breast in the fall. She was seen at [facility] and underwent a right sided core biopsy on 02/16/2016 by interventional radiology. The tissue specimen demonstrated invasive ductal carcinoma, Yohan grade 2. ER positive (90%, very weak) and MS negative (0%). HER-2 was quantified at 3+. [...] positive, >90% Ki-67 (30-9) positive, 12% CK8 (64pgrfN20) positive CK5-6 (D5 & 1684) negative Calponin-1 (KO268K) negative P40 (BC28) negative E-Cad (ECH-6) positive MORPHOMETRIC ANALYSIS ER (clone 6F11) 15%, weak intensity MS (clone 16/1E2) 0% Her-2Neu (clone CB11) 3+ Block B Calponin-1 (UZ175V) negative P40 (BC28) negative CK8 (45vargQ44) positive INTERPRETATION: A. Right breast 1 o clock, biopsy: Invasive ductal carcinoma, grade 3/3. Positive for estrogen receptors (favorable prognostic indicator). Negative for progesterone receptors (unfavorable prognostic indicator). Positive for overexpression of CXJ1sfg. B. Right breast 2 o clock, biopsy: [...] ductal carcinoma (no special type) Histologic Grade (Oakwood grade): Glandular/tubular differentiation - score 3 Nuclear [...] - previously performed on section of tumor ([id number] / [id number]). ER - positive (15%, weak intensity) MS - negative (0%) Her2 krista - positive (3+) Microcalcifications - present in both invasive carcinoma and non-neoplastic tissue. Clinical history - Please make reference to previous specimen ([id number]) right breast at 1 o clock and [...] - 4.00 k/uL 0.78 (L) 0.79 (L) Napa% % 12.7 15.6 Abs [place] <0.87 k/uL 0.55 0.52 Eosin% % 10.4 [...] as necessary for today's visit. Caity Cote APRN.OLIVING MACHINE OPERATOR documented in this encounter [facility] 01-13-2024 Telephone encounter Note Patient informed of 01/15 appointment [facility] Work Phone: 01-13-2024 Miscellaneous Notes Patient informed [...] Carla Almonte RN documented in this encounter [facility] 01-13-2024 Telephone encounter Note Treatment moved as requested. Future appointments rescheduled. 1st attempt. Message left for patient to contact office to confirm Tuesday appointment for treatment. [facility] 01-13-2024 Telephone encounter Note With lab and office visit? [facility] 01-12-[address] Rivers would like to move patients Herceptin treatment up to next week, Tuesday or Tuesday. Please contact patient to schedule. Carla Almonte RN [facility] 01-11-2024 Telephone encounter Note New order faxed. Jazlyn Harding LPN [facility] 01-11-2024 Miscellaneous Notes New order faxed. Jazlyn Harding LPN Reed from [facility] calling to ask if Dr. Rivers wants a regular echo or a limited echo? If limited is ok, will need new order. (Order pended just in case) Limited Oncology echo will check everything but the valves. Reed Jazlyn Harding LPN documented in this encounter [facility] 01-11-2024 Telephone encounter Note Reed from [facility] calling to ask if Dr. Rivers wants a regular echo or a limited echo? If limited is ok, will need new order. (Order pended just in case) Limited Oncology echo will check everything but the valves. Reed # [phone] Jazlyn Harding LPN [facility] 01-10-2024 Telephone encounter Note Spoke to patient. Patient stated she forgot that she hasn't taken today's dose and will be done on Tuesday. Patient will continue with the original plan of resuming Tuesday. Carla Almonte RN [facility] 01-10-2024 Miscellaneous Notes Spoke to patient. Patient [...] Carla Almonte RN documented in this encounter [facility] 01-10-2024 Telephone encounter Note Patient informed of Dr. Rivers's response, stated understanding. Patient has 6 tablets of Levaquin left, she will finish on Tuesday. Okay to resume as directed or would you like her to postpone starting until Tuesday? Thank you. Carla Almonte RN [facility] 01-10-2024 Telephone encounter Note Called patient, no answer, left a requesting a call back. Carla Almonte RN [facility] 01-09-2024 Telephone encounter Note She should complete the antibiotic this Tuesday or Tuesday. On Tuesday she can start a new cycle of capecitabine with 3 tablets in the morning and 2 tablets in the evening. Restart Tukysa that day. Lets keep her office visit scheduled the way it is for now. Plan to restart Herceptin in a few weeks. Rip Rivers DO [facility] 01-09-2024 Telephone encounter Note Patient stated she [...] haven't coughed at all. Carla Almonte RN [facility] 01-06-2024 Telephone encounter Note Spoke with operating room scheduler from [facility] and the order was changed to be an echo and not an oncology echo and the codes work (except for the first one) and patient is good to go. Alexia Stephens [facility] 01-06-2024 Miscellaneous Notes Spoke with operating room scheduler from [facility] and the order was changed to be an echo and not an oncology echo and the codes work (except for the first one) and patient is good to go. Alexia Stephens Dr. Rivers- please file new order. Jazlyn Harding LPN Spoke with staff at [facility] to schedule ECHO and neither ICD10 code will pass/work with the patient's insurance for approval. Please advise/change orders to a difference diagnosis code. Alexia Stephens Dr. Rivers- please file order. PSS- please assist in scheduling echo at [facility]. Jazlyn Harding LPN Call placed to patient. Reviewed instructions and pt voices understanding. Echo order placed. echocardiogram to be done at [facility], Dr. Galeano to read. Pt will case picker Levaquin today. PSS please assist with scheduling. [...] order for echocardiogram to be done at [facility], Dr. Galeano to read. Would like that done as soon as able. Let's check in with her early next week regarding her symptoms of cough and getting short of breath when lying down. Rip Rivers DO documented in this encounter [facility] 01-06-[address] Rivers- please file new order. Jazlyn Harding LPN [facility] 01-06-2024 Telephone encounter Note Spoke with staff at [facility] to schedule ECHO and neither ICD10 code will pass/work with the patient's insurance for approval. Please advise/change orders to a difference diagnosis code. Alexia Stephens [facility] 01-06-[address] Rivers- please file order. PSS- please assist in scheduling echo at [facility]. Jazlyn Harding LPN [facility] 01-05-2024 Telephone encounter Note Call placed to patient. Reviewed instructions and pt voices understanding. Echo order placed. echocardiogram to be done at [facility], Dr. Gaelano to read. Pt will case picker Levaquin today. PSS please assist with scheduling. Bruna Mcmanus LPN [facility] 01-04-[address] scan shows worsening inflammation in the right upper lung but it does not have the classic look of a drug-induced pneumonitis. May be a pneumonia so I would like her to take Levaquin. Rx sent. Continue to hold Herceptin, Tukysa and capecitabine for now. Please pend order for echocardiogram to be done at [facility], Dr. Galeano to read. Would like that done as soon as able. Let's check in with her early next week regarding her symptoms of cough and getting short of breath when lying down. Rip Rivers DO [facility] 01-04-2024 History of Presen t illness Narrative [...] PATIENT PRESENTS WITH AN IMPLANTABLE OR ATTACHED LICENSED PSYCHOLOGIST: No RADIOLOGY DEPARTMENT: General X-ray: Exam(s) Completed: Chest X-Ray PERIPHERAL IV DATA: Not applicable SIGNED BY: RT Jamar(R) January 04, 2024 11:16 AM documented in this encounter [facility] 01-04-2024 History of Presen t illness Narrative Oncologic problem(s): 1) Metastatic recurrence of ER positive, MS negative, HER2 positive breast cancer. 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 HPI: The patient is a 67 year old female who discovered a lump on the lower inner portion of her right breast in the fall of 2015. She was seen at [facility] and underwent a right sided core biopsy on 02/16/2016 by interventional radiology. The tissue specimen demonstrated invasive ductal carcinoma, Oakwood grade 2. ER positive (90%, very weak) and MS negative (0%). HER-2 was quantified at 3+. [...] positive, >90% Ki-67 (30-9) positive, 12% CK8 (10ypusP13) positive CK5-6 (D5 & 1684) negative Calponin-1 (UK474D) negative P40 (BC28) negative E-Cad (ECH-6) positive MORPHOMETRIC ANALYSIS ER (clone 6F11) 15%, weak intensity MS (clone 16/1E2) 0% Her-2Neu (clone CB11) 3+ Block B Calponin-1 (BT023U) negative P40 (BC28) negative CK8 (75rmahH29) positive INTERPRETATION: A. Right breast 1 o clock, biopsy: Invasive ductal carcinoma, grade 3/3. Positive for estrogen receptors (favorable prognostic indicator). Negative for progesterone receptors (unfavorable prognostic indicator). Positive for overexpression of FMZ6iva. B. Right breast 2 o clock, biopsy: [...] ductal carcinoma (no special type) Histologic Grade (Oakwood grade): Glandular/tubular differentiation - score 3 Nuclear [...] - previously performed on section of tumor ([id number] / [id number]). ER - positive (15%, weak intensity) MS - negative (0%) Her2 krista - positive (3+) Microcalcifications - present in both invasive carcinoma and non-neoplastic tissue. Clinical history - Please make reference to previous specimen ([id number]) right breast at 1 o clock and [...] pN0(sln) MX ER positive (9%, very weak) MS negative HER overexpressed stage IIA invasive ductal carcinoma the right breast. -Recurrent pT2(m) pN0 (none of 5 LNs) MX ER +(15%, weak intensity)/MS negative (0%) HER2 3+ invasive ductal carcinoma [...] which included preparing to see the patient, jozt-ri-ljau patient care, completing clinical documentation, obtaining and/or reviewing separately obtained history, performing a medically appropriate examination, counseling and educating the patient/family/caregiver, ordering medications, tests, or procedures, communicating with other HCPs (not separately reported), and communicating results to the patient/family/caregiver. Rip Rivers DO documented in this encounter [facility] 12-30-2023 History of Presen t illness Narrative [...] laboratory parameters, disease state markers and outcomes. 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 Assessment Patient confirmed: Yes Med/dose confirmed: Yes Supplies needed: No supplies needed Missed doses: No Estimated days supply on hand: 0 Next cycle/dose due: 01/06/24 Copay amount: 0 Copay form of payment: (N/A) Payment confirmed: Yes Delivery method: FedEx Signature required: No Delivery address: [address] [place] [address] Delivery date: 01/03/24 (Pt not expecting changes [...] 0.9 % (flush) 10 mL (BD POSIFLUSH) [facility] CLINICAL ASSESSMENT - HEMATOLOGY ONCOLOGY V6: Assessment to use: Refill Date of influenza vaccination reminder: 10/13/2023 Date of most recent vaccination assessment: 10/13/2023 Treatment Plan Information: Diagnosis: metastatic recurrence of ER+. MS-, Her2+ breast cancer Previous treatment(s): - Right [...] hx of coronary artery disease), GI toxicity, avdk-kaj-arls syndrome (onset ~79 days), hepatotoxicity (onset ~64 [...] toxicity Ruth Mejia documented in this encounter [facility] 12-22-2023 History of Presen t illness Narrative [...] PATIENT PRESENTS WITH AN IMPLANTABLE OR ATTACHED LICENSED PSYCHOLOGIST: No ALLERGIES: Reviewed and unchanged CONTRAST ALLERGY: [...] IV DATA: iv started in [facility] RADIOLOGY DEPARTMENT: CT; Exam(s) Completed: Chest Abdomen Pelvis SIGNATURE: RT Ashley(R) PATIENT NAME: Renate Christiansen DATE: December 22, 2023 TIME: 12:46 PM documented in this encounter [facility] 12-22-2023 Telephone encounter Note Spoke with patient and she will be in at 10 for hydration. Alexia Stephens [facility] 12-22-2023 Miscellaneous Notes Spoke with patient and [...] Chrissie Elliott LPN documented in this encounter [facility] 12-21-2023 Telephone encounter Note Please let patient know she can come in at 10 for her hydration prior to CT @ 11:20. Please schedule on 1st floor as 2nd floor already has appointments then. [facility] 12-21-2023 Telephone encounter Note Chemo nurse (2nd floor), please advise of time for hydration. [facility] Work Phone: 12-21-2023 Telephone encounter Note There has been increase in her serum creatinine very recently and looks like she has been having diarrhea. Could be from either Tukysa or capecitabine or both. I would definitely hydrate prior to CT scans. Rip Rivers DO [facility] 12-21-2023 Telephone encounter Note Pt. Scheduled for CT scan tomorrow. 12/14 Cr 1.6 GFR 35 Tech questioning hydration prior to CT? Or do you want her redrawn tomorrow? Chrissie Elliott LPN [facility] 12-15-2023 History of Presen t illness Narrative Assessment unchanged from 12/14/23 office visit with Mary Cote CNP. CR today 1.6. Zometa held and to recheck on and give on 01/05/24 after repeat CMP documented in this encounter [facility] 12-15-2023 Telephone encounter Note Information given to patient verbalizing understandin [facility] 12-15-2023 Miscellaneous Notes Information given to patient verbalizing understandin Message left for patient to contact office. Jazlyn Harding LPN Please inform pt. that her potassium is normal. Advise pt. that she needs to drink more water-her creat. bumped up some. Thank you. Caity Cote APRN.OLIVING MACHINE OPERATOR documented in this encounter [facility] 12-14-2023 Telephone encounter Note Message left for patient to contact office. Jazlyn Harding LPN [facility] 12-14-2023 Telephone encounter Note Please inform pt. that her potassium is normal. Advise pt. that she needs to drink more water-her creat. bumped up some. Thank you. Caity Cote APRN.OLIVING MACHINE OPERATOR [facility] 12-14-2023 History of Presen t illness Narrative Chief Complaint Patient presents with: Established Patient HPI: Renate Christiansen is a 68 year old female who presents here today for evaluation for treatment tomorrow. Per Dr. Rivers's previous note: H/o discovered a lump on the lower inner portion of her right breast in the fall of 2015. She was seen at [facility] and underwent a right sided core biopsy on 02/16/2016 by interventional radiology. The tissue specimen demonstrated invasive ductal carcinoma, Oakwood grade 2. ER positive (90%, very weak) and MS negative (0%). HER-2 was quantified at 3+. [...] positive, >90% Ki-67 (30-9) positive, 12% CK8 (89exsyK62) positive CK5-6 (D5 & 1684) negative Calponin-1 (RK553A) negative P40 (BC28) negative E-Cad (ECH-6) positive MORPHOMETRIC ANALYSIS ER (clone 6F11) 15%, weak intensity MS (clone 16/1E2) 0% Her-2Neu (clone CB11) 3+ Block B Calponin-1 (VF263A) negative P40 (BC28) negative CK8 (03focyS11) positive INTERPRETATION: A. Right breast 1 o clock, biopsy: Invasive ductal carcinoma, grade 3/3. Positive for estrogen receptors (favorable prognostic indicator). Negative for progesterone receptors (unfavorable prognostic indicator). Positive for overexpression of UNX3mvo. B. Right breast 2 o clock, biopsy: [...] ductal carcinoma (no special type) Histologic Grade (Oakwood grade): Glandular/tubular differentiation - score 3 Nuclear [...] - previously performed on section of tumor ([id number] / [id number]). ER - positive (15%, weak intensity) MS - negative (0%) Her2 krista - positive (3+) Microcalcifications - present in both invasive carcinoma and non-neoplastic tissue. Clinical history - Please make reference to previous specimen ([id number]) right breast at 1 o clock and [...] k/uL 0.87 (L) 0.86 (L) 0.75 (L) [place]% % 10.6 10.3 11.8 Abs [place] <0.87 k/uL 0.38 0.36 0.57 Eosin% % [...] pN0(sln) MX ER positive (9%, very weak) MS negative HER overexpressed stage IIA invasive ductal carcinoma the right breast. -Recurrent pT2(m) pN0 (none of 5 LNs) MX ER +(15%, weak intensity)/MS negative (0%) HER2 3+ invasive ductal carcinoma [...] as necessary for today's visit. Caity Cote APRN.CNP documented in this encounter [facility] 12-07-2023 History of Presen t illness Narrative [...] laboratory parameters, disease state markers and outcomes. 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 Assessment Patient confirmed: Yes Med/dose confirmed: Yes Supplies needed: No supplies needed Missed doses: No Estimated days supply on hand: (Has doses for today and tomorrow.) Next cycle/dose due: 12/16/23 Copay amount: 0 Delivery method: FedEx Signature required: Waived on patient request Delivery address: [address] [facility] [address] Delivery date: 12/13/23 (Has appointmetn the rest [...] 0.9 % (flush) 10 mL (BD POSIFLUSH) [facility] Visit Assessment - Hematology/Oncology: Assessment to use: Refill Vaccination Assessment: Date of influenza vaccination reminder: 10/13/2023 Date of most recent vaccination assessment: 10/13/2023 Treatment Plan Information: Treatment Plan Information: Diagnosis: metastatic recurrence of ER+. MS-, Her2+ breast cancer Previous treatment(s): - Right [...] hx of coronary artery disease), GI toxicity, mtij-uyv-zdmi syndrome (onset ~79 days), hepatotoxicity (onset ~64 [...] toxicity Shanna Davis documented in this encounter [facility] 11-23-2023 History of Presen t illness Narrative Oncologic problem(s): 1) Metastatic recurrence of ER positive, MS negative, HER2 positive breast cancer. 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 HPI: The patient is a 67 year old female who discovered a lump on the lower inner portion of her right breast in the fall of 2015. She was seen at [facility] and underwent a right sided core biopsy on 02/16/2016 by interventional radiology. The tissue specimen demonstrated invasive ductal carcinoma, Yohan grade 2. ER positive (90%, very weak) and MS negative (0%). HER-2 was quantified at 3+. [...] positive, >90% Ki-67 (30-9) positive, 12% CK8 (05jdtlY97) positive CK5-6 (D5 & 1684) negative Calponin-1 (AU353R) negative P40 (BC28) negative E-Cad (ECH-6) positive MORPHOMETRIC ANALYSIS ER (clone 6F11) 15%, weak intensity MS (clone 16/1E2) 0% Her-2Neu (clone CB11) 3+ Block B Calponin-1 (MA559L) negative P40 (BC28) negative CK8 (59qrprD88) positive INTERPRETATION: A. Right breast 1 o clock, biopsy: Invasive ductal carcinoma, grade 3/3. Positive for estrogen receptors (favorable prognostic indicator). Negative for progesterone receptors (unfavorable prognostic indicator). Positive for overexpression of URW6xcu. B. Right breast 2 o clock, biopsy: [...] - previously performed on section of tumor ([id number] / [id number]). ER - positive (15%, weak intensity) MS - negative (0%) Her2 krista - positive (3+) Microcalcifications - present in both invasive carcinoma and non-neoplastic tissue. Clinical history - Please make reference to previous specimen ([id number]) right breast at 1 o clock and [...] subcutaneous metastasis near xyphoid. LABS: Latest Ref [facility] 11/23/2023 WBC 3.70 - 11.00 k/uL 3.51 [...] Lymph 1.00 - 4.00 k/uL 0.86 (L) Napa% % 10.3 Abs [place]a <0.87 k/uL 0.36 Eosin% % 10.0 Abs [...] pN0(sln) MX ER positive (9%, very weak) MS negative HER overexpressed stage IIA invasive ductal carcinoma the right breast. -Recurrent pT2(m) pN0 (none of 5 LNs) MX ER +(15%, weak intensity)/MS negative (0%) HER2 3+ invasive ductal carcinoma [...] which included preparing to see the patient, harn-zh-hgal patient care, completing clinical documentation, obtaining and/or reviewing separately obtained history, performing a medically appropriate examination, counseling and educating the patient/family/caregiver, ordering medications, tests, or procedures, communicating with other HCPs (not separately reported), and communicating results to the patient/family/caregiver. Rip Rivers DO documented in this encounter [facility] 11-15-2023 Telephone encounter Note Patient called to clarify if she should continue taking tukysa daily. Reviewed prescription instructions and informed patient tukysa is daily, capecitabine is 2 weeks on and 1 week off. Patient stated understanding of discussed information. Carla Almonte RN [facility] 11-15-2023 Miscellaneous Notes Patient called to clarify if she should continue taking tukysa daily. Reviewed prescription instructions and informed patient tukysa is daily, capecitabine is 2 weeks on and 1 week off. Patient stated understanding of discussed information. Carla Almonte RN Patient called with questions regarding how to take Tukysa. Please advise. documented in this encounter [facility] 11-15-2023 Telephone encounter Note Patient called with questions regarding how to take Tukysa. Please advise. [facility] Work Phone: 11-11-2023 Telephone encounter Note ORAL [...] if unable to comply. Carla Almonte RN [facility] 11-11-2023 Miscellaneous Notes ORAL ANTI-CANCER AGENTS [...] Carla Almonte RN documented in this encounter [facility] 11-11-2023 Telephone encounter Note ORAL ANTI-CANCER AGENTS FOLLOW-UP PHONE CALL/VISIT Patient identified by name and date of . NO Patient is on cycle 1, week 2, day 8 of Capecitabine (Xeloda) and tucatinib for Breast Cancer. Called patient, no answer, left a VM requesting a call back from patient. Carla Almonte RN [facility] 11-09-2023 Telephone encounter Note This was sent to [facility] [place] 11/01/2023: E-Prescribing Status: Receipt confirmed by pharmacy (11/01/2023 9:54 AM EDT) Jazlyn Harding LPN [facility] 11-09-2023 Miscellaneous Notes This was sent to [facility] [place] 11/01/2023: E-Prescribing Status: Receipt confirmed by pharmacy (11/01/2023 9:54 AM EDT) Jazlyn Harding LPN documented in this encounter [facility] 11-03-2023 History of Presen t illness Narrative Assessment unchanged from 11/02/23 office visit with Mary Cote CNP documented in this encounter [facility] 11-02-2023 History of Presen t illness Narrative Chief Complaint Patient presents with: Established Patient HPI: Renate Christiansen is a 68 year old female who presents here today for evaluation for treatment tomorrow. Per Dr. Rivers's previous note: H/o discovered a lump on the lower inner portion of her right breast in the fall. She was seen at [facility] and underwent a right sided core biopsy on 02/16/2016 by interventional radiology. The tissue specimen demonstrated invasive ductal carcinoma, Yohan grade 2. ER positive (90%, very weak) and MS negative (0%). HER-2 was quantified at 3+. [...] positive, >90% Ki-67 (30-9) positive, 12% CK8 (81qkcwE03) positive CK5-6 (D5 & 1684) negative Calponin-1 (IU099R) negative P40 (BC28) negative E-Cad (ECH-6) positive MORPHOMETRIC ANALYSIS ER (clone 6F11) 15%, weak intensity MS (clone 16/1E2) 0% Her-2Neu (clone CB11) 3+ Block B Calponin-1 (VC564Q) negative P40 (BC28) negative CK8 (86fxsqI47) positive INTERPRETATION: A. Right breast 1 o clock, biopsy: Invasive ductal carcinoma, grade 3/3. Positive for estrogen receptors (favorable prognostic indicator). Negative for progesterone receptors (unfavorable prognostic indicator). Positive for overexpression of ZNG1phk. B. Right breast 2 o clock, biopsy: [...] ductal carcinoma (no special type) Histologic Grade (Oakwood grade): Glandular/tubular differentiation - score 3 Nuclear [...] - previously performed on section of tumor ([id number] / [id number]). ER - positive (15%, weak intensity) MS - negative (0%) Her2 krista - positive (3+) Microcalcifications - present in both invasive carcinoma and non-neoplastic tissue. Clinical history - Please make reference to previous specimen ([id number]) right breast at 1 o clock and [...] 4.00 k/uL 1.15 0.45 (L) 0.75 (L) Napa% % 11.6 13.3 11.4 Abs [place]a <0.87 k/uL 0.52 0.38 0.39 Eosin% % [...] pN0(sln) MX ER positive (9%, very weak) MS negative HER overexpressed stage IIA invasive ductal carcinoma the right breast. -Recurrent pT2(m) pN0 (none of 5 LNs) MX ER +(15%, weak intensity)/MS negative (0%) HER2 3+ invasive ductal carcinoma [...] as necessary for today's visit. Caity Cote APRN.OLIVING MACHINE OPERATOR documented in this encounter [facility] 11-02-2023 History of Presen t illness Narrative Patient is here for IVAD port flush/blood draw per [facility] [place] protocol. IVAD is located in right upper [...] tolerated procedure well. documented in this encounter [facility] 10-28-2023 History of Presen t illness Narrative AMBULATORY TELEPHONE VISIT Renate Borja Christiansen has consented to this telephone encounter. [...] Meenu Garay MD documented in this encounter [facility] 10-14-2023 Telephone encounter Note Patient notified and verbalized understanding. Jazlyn Harding LPN [facility] 10-14-2023 Miscellaneous Notes Patient notified and verbalized understanding. Jazlyn Harding LPN Yes, hold on starting until she is evaluated at next OV. [facility] Care Coordination FOLLOW-UP NOTE Patient identified by name and date of . YES Spoke to patient Summary: (Reason for follow-up) Received Xeloda and Tukysa today. Patient stated she is supposed to start around 11/02 or 11/03? Please confirm. Thank you. Care Coordination Plan: Will follow up after speaking to Dr. Silvestre Almonte RN October 14, 2023 Patient received it this morning. Left patient a message to contact this nurse. Did patient receive Tukysa or when will she receive Tukysa? Jazlyn Harding LPN documented in this encounter [facility] 10-14-2023 Telephone encounter Note Yes, hold on starting until she is evaluated at next OV. [facility] 10-14-2023 Telephone encounter Note ORAL ANTI-CANCER AGENTS [...] teaching topics as needed. Carla Almonte RN [facility] 10-14-2023 Miscellaneous Notes ORAL ANTI-CANCER AGENTS EDUCATION [...] Carla Almonte RN documented in this encounter [facility] 10-14-2023 Telephone encounter Note [place] Care Coordination FOLLOW-UP NOTE Patient identified by name and date of . YES Spoke to patient Summary: (Reason for follow-up) Received Xeloda and Tukysa today. Patient stated she is supposed to start around 11/02 or 11/03? Please confirm. Thank you. Care Coordination Plan: Will follow up after speaking to Dr. Silvestre Almonte RN October 14, 2023 [facility] 10-14-2023 Telephone encounter Note Patient received it this morning. [facility] Work Phone: 10-14-2023 Telephone encounter Note Left patient a message to contact this nurse. Did patient receive Tukysa or when will she receive Tukysa? Jazlyn Harding LPN [facility] 10-11-2023 History of Presen t illness Narrative Oncologic problem(s): 1) Metastatic recurrence of ER positive, MS negative, HER2 positive breast cancer. 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 HPI: The patient is a 67 year old female who discovered a lump on the lower inner portion of her right breast in the fall of 2015. She was seen at [facility] and underwent a right sided core biopsy on 02/16/2016 by interventional radiology. The tissue specimen demonstrated invasive ductal carcinoma, Oakwood grade 2. ER positive (90%, very weak) and MS negative (0%). HER-2 was quantified at 3+. [...] positive, >90% Ki-67 (30-9) positive, 12% CK8 (18hoveB30) positive CK5-6 (D5 & 1684) negative Calponin-1 (SV176V) negative P40 (BC28) negative E-Cad (ECH-6) positive MORPHOMETRIC ANALYSIS ER (clone 6F11) 15%, weak intensity MS (clone 16/1E2) 0% Her-2Neu (clone CB11) 3+ Block B Calponin-1 (PF344B) negative P40 (BC28) negative CK8 (19kzuwJ19) positive INTERPRETATION: A. Right breast 1 o clock, biopsy: Invasive ductal carcinoma, grade 3/3. Positive for estrogen receptors (favorable prognostic indicator). Negative for progesterone receptors (unfavorable prognostic indicator). Positive for overexpression of BHS3zqp. B. Right breast 2 o clock, biopsy: [...] ductal carcinoma (no special type) Histologic Grade (Oakwood grade): Glandular/tubular differentiation - score 3 Nuclear [...] - previously performed on section of tumor ([id number] / [id number]). ER - positive (15%, weak intensity) MS - negative (0%) Her2 krista - positive (3+) Microcalcifications - present in both invasive carcinoma and non-neoplastic tissue. Clinical history - Please make reference to previous specimen ([id number]) right breast at 1 o clock and [...] pN0(sln) MX ER positive (9%, very weak) MS negative HER overexpressed stage IIA invasive ductal carcinoma the right breast. -Recurrent pT2(m) pN0 (none of 5 LNs) MX ER +(15%, weak intensity)/MS negative (0%) HER2 3+ invasive ductal carcinoma [...] started for hypercalcemia). -Continue follow-up with Dr. Waleska. -Previously stopped IBU for increase in serum [...] which included preparing to see the patient, [id number] patient care, completing clinical documentation, obtaining and/or reviewing separately obtained history, performing a medically appropriate examination, counseling and educating the patient/family/caregiver, ordering medications, tests, or procedures, communicating with other HCPs (not separately reported), and communicating results to the patient/family/caregiver. Rip Rivers DO documented in this encounter [facility] 09-30-2023 Nurse Note AMBULATORY PATIENT EDUCATION NOTE [...] Time spent on patient education: 10 minutes. [facility] 09-30-2023 Nurse Note AMBULATORY PATIENT EDUCATION NOTE [...] education: 10 minutes. documented in this encounter [facility] 09-30-2023 History of Presen t illness Narrative RENATE CHRISTIANSEN [id number] : 1955 09/30/2023 [facility] Department of Radiation Oncology RADIATION ONCOLOGY - [...] / 41:56 PM documented in this encounter [facility] 2023 Nurse Note Radiation Therapy - Nursing Note (OTV) PATIENT NAME: Renate Christiansen PATIENT 2023 [facility] FACILITY/LOCATION: [place] NURSING NOTE TYPE: CHEST Subjective Data no complaints Additional Data Do you want to see a Lease Examiner? No Status: Post-menopausal. Stress Scale: On a scale of 0 to 10, what number best describes how much distress you have experienced in the past week?(0 being no distress and 10 being extreme distress) 6 Social work notified: Pt denied need to see social security benefits interviewer at this time. Nursing Assessment Fatigue: none [...] Cough: None. SIGNED by: Dee Douglas RN [facility] 2023 History of Presen t illness Narrative [...] Meenu Garay MD documented in this encounter [facility] 2023 Nurse Note Radiation Therapy - Nursing Note (OTV) PATIENT NAME: Renate Christiansen PATIENT 2023 [facility] FACILITY/LOCATION: [place] NURSING NOTE TYPE: CHEST Subjective Data no complaints Additional Data Do you want to see a Lease Examiner? No Status: Post-menopausal. Stress Scale: On a scale of 0 to 10, what number best describes how much distress you have experienced in the past week?(0 being no distress and 10 being extreme distress) 6 Social work notified: Pt denied need to see social security benefits interviewer at this time. Nursing Assessment Fatigue: none [...] Dee Douglas RN documented in this encounter [facility] 09-23-2023 Telephone encounter Note Patient had called back and stated she did not receive packet of information. Information was left for patient at check in desk on Tuesday and patient picked up at her OV. Message was left on patients VM stating this nurse will check in later in the month/closer to start date to review medications. Carla Almonte RN [facility] 09-22-2023 History of Presen t illness Narrative No changes to assessment from OV yesterday. Lexie Hartley RN documented in this encounter [facility] 09-21-2023 History of Presen t illness Narrative Oncologic problem(s): 1) Metastatic recurrence of ER positive, MS negative, HER2 positive breast cancer. 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 HPI: The patient is a 67 year old female who discovered a lump on the lower inner portion of her right breast in the fall of 2015. She was seen at [facility] and underwent a right sided core biopsy on 02/16/2016 by interventional radiology. The tissue specimen demonstrated invasive ductal carcinoma, Oakwood grade 2. ER positive (90%, very weak) and MS negative (0%). HER-2 was quantified at 3+. [...] positive, >90% Ki-67 (30-9) positive, 12% CK8 (96gfoeP61) positive CK5-6 (D5 & 1684) negative Calponin-1 (JR485Z) negative P40 (BC28) negative E-Cad (ECH-6) positive MORPHOMETRIC ANALYSIS ER (clone 6F11) 15%, weak intensity MS (clone 16/1E2) 0% Her-2Neu (clone CB11) 3+ Block B Calponin-1 (QU550G) negative P40 (BC28) negative CK8 (98lkbvQ48) positive INTERPRETATION: A. Right breast 1 o clock, biopsy: Invasive ductal carcinoma, grade 3/3. Positive for estrogen receptors (favorable prognostic indicator). Negative for progesterone receptors (unfavorable prognostic indicator). Positive for overexpression of XLB9xvc. B. Right breast 2 o clock, biopsy: [...] ductal carcinoma (no special type) Histologic Grade (Oakwood grade): Glandular/tubular differentiation - score 3 Nuclear [...] - previously performed on section of tumor ([id number] / [id number]). ER - positive (15%, weak intensity) MS - negative (0%) Her2 krista - positive (3+) Microcalcifications - present in both invasive carcinoma and non-neoplastic tissue. Clinical history - Please make reference to previous specimen ([id number]) right breast at 1 o clock and [...] subcutaneous metastasis near xyphoid. LABS: Latest Ref [facility] 09/21/2023 WBC 3.70 - 11.00 k/uL [...] Abs Lymph 1.00 - 4.00 k/uL 1.15 Napa% % 11.6 Abs [place]a <0.87 k/uL 0.52 Eosin% % 7.8 Abs [...] pN0(sln) MX ER positive (9%, very weak) MS negative HER overexpressed stage IIA invasive ductal carcinoma the right breast. -Recurrent pT2(m) pN0 (none of 5 LNs) MX ER +(15%, weak intensity)/MS negative (0%) HER2 3+ invasive ductal carcinoma [...] for hypercalcemia). -Due for echocardiogram--will order at [facility]. -Continue follow-up with Dr. Galeano. -Previously [...] Rip Rivers DO documented in this encounter [facility] 09-16-2023 Telephone encounter Note ORAL ANTI-CANCER AGENTS EDUCATION Called and left a message requesting a call back to confirm that patient received oral chemo information. Carla Almonte RN [facility] 09-15-2023 History of Presen t illness Narrative [...] PATIENT PRESENTS WITH AN IMPLANTABLE OR ATTACHED LICENSED PSYCHOLOGIST: No RADIOLOGY DEPARTMENT: Ultrasound PERIPHERAL IV DATA: Not applicable SIGNED BY: Jazmin Jacobsen RDMS RVT September 15, 2023 1:44 PM documented in this encounter [facility] 09-13-2023 Nurse Note Radiation Therapy - Patient Education Note PATIENT NAME: Renate Christiansen PATIENT September 13, 2023 [facility] FACILITY/LOCATION: [place] READINESS TO LEARN Cognitive Ability: Alert and [...] 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 Patient has an Onbody or Implanted device: No Signed by: Dee Douglas RN documented in this encounter [facility] 09-13-2023 History of Presen t illness Narrative RENATE CHRISTIANSEN [id number] 09/13/2023 [facility] Department of Radiation Oncology [facility] RADIATION ONCOLOGY SIMULATION NOTE DATE OF SIMULATION: 09/13/2023 MACHINE: [employer] Definition CT Simulator Diagnosis: Metastatic breast cancer with solitary progression of lung metastasis. AREA:Right Lung. PATIENT POSITION: Supine. CONTRAST: None PROTOCOL: None BLOCKING: Custom blocking to be determined at treatment planning. FIXATION DEVICE: In order to achieve accurate and reproducible treatments, the patient is to be immobilized with PlaceFirst SBRT system, compression belt, and bodyfix. PROCEDURE: [...] if applicable. Electronically Signed Meenu Garay M.D./hudson :57 PM documented in this encounter [facility] 09-13-2023 History of Presen t illness Narrative RENATE CHRISTIANSEN [id number] 09/13/2023 [facility] Department of Radiation Oncology Treatment Planning Note [...] and DVH. Electronically Signed Meenu Garay M.D. 4/12/72362:56 PM documented in this encounter [facility] 09-05-2023 Miscellaneous Notes CYCLE 1/DAY 1 POST [...] Chanelle Westfall RN documented in this encounter [facility] 08-30-2023 Miscellaneous Notes Patient informed and US [...] RUQ. Alexia Stephens documented in this encounter [facility] 08-30-2023 History of Presen t illness Narrative [facility] received prescription(s) for Capecitabine and Tukysa from Dr. Rivers's office. Benefits investigation was conducted, indicating that a prior authorization is not required at this time per patient's plan with Medicare B and [employer]. Prescriptions will now be processed through [facility] for determination of next steps. Shanna Davis documented in this encounter [facility] 08-30-2023 History of Presen t illness Narrative Diagnosis: 1) Metastatic recurrence of ER positive, MS negative, HER2 positive breast cancer. 2) Cardiomyopathy. HPI: The patient is a 67 year old female who discovered a lump on the lower inner portion of her right breast in the fall of 2015. She was seen at [facility] and underwent a right sided core biopsy on 02/16/2016 by interventional radiology. The tissue specimen demonstrated invasive ductal carcinoma, Yohan grade 2. ER positive (90%, very weak) and MS negative (0%). HER-2 was quantified at 3+. [...] positive, >90% Ki-67 (30-9) positive, 12% CK8 (62weqgR41) positive CK5-6 (D5 & 1684) negative Calponin-1 (OC557N) negative P40 (BC28) negative E-Cad (ECH-6) positive MORPHOMETRIC ANALYSIS ER (clone 6F11) 15%, weak intensity MS (clone 16/1E2) 0% Her-2Neu (clone CB11) 3+ Block B Calponin-1 (RP365Q) negative P40 (BC28) negative CK8 (18efdxO42) positive INTERPRETATION: A. Right breast 1 o clock, biopsy: Invasive ductal carcinoma, grade 3/3. Positive for estrogen receptors (favorable prognostic indicator). Negative for progesterone receptors (unfavorable prognostic indicator). Positive for overexpression of OXC5sjg. B. Right breast 2 o clock, biopsy: [...] - previously performed on section of tumor ([id number] / [id number]). ER - positive (15%, weak intensity) MS - negative (0%) Her2 krista - positive (3+) Microcalcifications - present in both invasive carcinoma and non-neoplastic tissue. Clinical history - Please make reference to previous specimen ([id number]) right breast at 1 o clock and [...] subcutaneous metastasis near Xyvoid. LABS: Latest Ref [facility] 08/30/2023 WBC 3.70 - 11.00 k/uL 2.95 [...] Abs Lymph 1.00 - 4.00 k/uL 1.02 Napa% % 14.2 Abs [place]a <0.87 k/uL 0.42 Eosin% % 7.8 Abs [...] pN0(sln) MX ER positive (9%, very weak) MS negative HER overexpressed stage IIA invasive ductal carcinoma the right breast. -Recurrent pT2(m) pN0 (none of 5 LNs) MX ER +(15%, weak intensity)/MS negative (0%) HER2 3+ invasive ductal carcinoma [...] Rip Rivers DO documented in this encounter [facility] 08-30-2023 History of Presen t illness Narrative Patient is here for IVAD port flush/blood draw per [facility] [place] protocol. IVAD is located in right upper [...] tolerated procedure well. documented in this encounter [facility] 08-26-2023 Nurse Note Radiation Therapy - Nursing Note (Consult) PATIENT NAME: Renate Christiansen PATIENT August 26, 2023 [facility] FACILITY/LOCATION: [place] Chief Complaint: Lung mets Reason for visit: Consult. Referring physician: Internal provider Dr Rivers Subjective Data: no complaints Additional Data Do you want to see a Lease Examiner? No Are you interested in information about fertility? No Status: Post-menopausal Stress Scale: On a scale of 0 to 10, what number best describes how much distress you have experienced in the past week?(0 being no distress and 10 being extreme distress) 7 Social work notified: Pt denied need to see social security benefits interviewer at this time. SIGNED by: Dee Douglas RN documented in this encounter [facility] 08-26-2023 History of Presen t illness Narrative [...] Taxol/Herceptin. It's ER positive (9%, very weak), MS negative (0%) and Her2/krista 3+. She then [...] negative. It was ER positive (15%, weak), MS negative and Her2 3+. CT chest on [...] Demerol [Meperidine* Unknown Erythromycin Unknown Latex Rash [place] [Hydrocodone-* Hives Nubain [Nalbuphine * Unknown Paxlovid [Nirmatrel* Intolerance Kidneys shut down Percocet [Oxycodone* Rash, Itching Prednisone Unknown per pt, this was given when had appendicitis and received multiple meds and she developed a rash and they had given her prednisone but at some point it was thought that it wasn't working and maybe it was part of the problem. Ama Other: See Comments Migraine headache Sulfa (Sulfonamide [...] that other personnel such as radiation therapists, knobber, and physicists will participate in planning and delivery of radiation treatment. Permanent tattoo amado will be placed to aid with positioning for daily treatment and the patient consented. Thank you very much for allowing us to participate in her care. Signed by: Meenu Garay MD cc: Emma Farrell [address] [place] [address] [place] [address] Rip Rivers [address] [facility] [address] documented in this encounter [facility] 08-25-2023 Miscellaneous Notes Spoke with patient and [...] Jazlyn Harding LPN documented in this encounter [facility] 08-22-2023 History of Presen t illness Narrative [...] PATIENT PRESENTS WITH AN IMPLANTABLE OR ATTACHED LICENSED PSYCHOLOGIST: No CREATININE: Creatinine Date Value Ref Range [...] 914 PATIENT DISCHARGED TO: Ambulatory patient, left [place] department area. A Diagnostic radioactive procedure has taken place, with no further precautions necessary other than routine body substance precautions. More information regarding radiation safety can be found using this link: [email or web address] SIGNATURE: RT Varun(R) PATIENT NAME: Renate Christiansen DATE: August 22, 2023 TIME: 9:22 AM PAGER/CONTACT #: documented in this encounter [facility] 08-17-2023 Discharge summary Note Date/Time August 16, 2023 10:31pm [facility] Medical Records Department [address] [place] [address] Emergency Department Summary 08/16/23 MR#: [id number] Acct: [id number] Name: RENATE CHIRSTIANSEN Rep #:[id number] : 1955 67 From: Eze Mack MD PCP: Dr. Emma Farrell, DO Status:R EG ER Location: ED HPI HPI [...] that she thinks that is related. [facility] Medical History Breast cancer metastasized to bone [...] % rectal foam (Proctofoam HC) 1 applic MS QHS 1 week #10 grams 08/17/23 [Rx [...] Verified 08/16/23 21:50 skin rash hydrocodone [From [place]] Allergy hives and Verified 08/16/23 21:50 nausea [...] % (Auto) 65.5 Lymph % (Auto) 21.9 Napa % (Auto) 7.5 Eos % (Auto) 4.5 [...] abnormality. 9. Large hiatal hernia. Electronically Signed: Manish Rogel MD at 0:30 EDT Reading Location ID and State: [address] [place] [address] Tel , Service support , Discharge Plan Triage Chief Complaint: Diarrhea Other Complaint: GI Bleed ED Provider: Eze Mack Dx/Rx/DC Orders Clinical Impression: Abdominal pain, RLQ, Rectal bleeding Instructions: Rectal Bleeding Tx Prescriptions: New Proctofoam HC 1-1 % foam 1 applic MS QHS 7 Days Qty: 10 0RF No [...] QDAY Qty: 90 3RF Primary Care Provider: Emma Farrell Referrals: Emma Farrell, [Primary Care Provider] - As soon as possible Disposition Disposition: Home, Self Care What to do if you have Problems For any increased pain, shortness of breath, bleeding, nausea or vomiting, chestpain, or any unexpected problems, contact your Primary Care Provider. Call [facility] ([phone]) or report to the closest Emergency Room. Call 911 if necessary. 08/17/23 0051 <Electronically signed by Eze Mack MD> Cosigner Signature (if applicable): CC: Dr. Emma Farrell DO ~ Signed [facility] Work Phone: [phone]) 358-559303-07-2024 History of Present illness Narrative* Rosemary Romero RN - 08/11/2023 1:00 PM EST Assessment unchanged from 08/10/[address] Rivers [facility] History of Present illness Narrative* Meenu Garay [...] minutes Meenu Garay MD [facility] History of Present illness Narrative* Rip Rivers DO - 08/10/2023 10:12 AM EST Diagnosis: 1) Metastatic recurrence of ER positive, MS negative, HER2 positive breast cancer. 2) Cardiomyopathy. HPI: The patient is a 67 year old female who discovered a lump on the lower inner portion of her right breast in the fall of 2015. She was seen at [facility] and underwent a right sided core biopsy on 02/16/2016 by interventional radiology. The tissue specimen demonstrated invasive ductal carcinoma, Yohan grade 2. ERpositive (90%, very weak) and MS negative (0%). HER-2 was quantified at 3+. [...] positive, >90% Ki-67 (30-9) positive, 12% CK8 (57tmwsZ99) positive CK5-6 (D5 & 1684) negative Calponin-1 (RQ915D) negative P40 (BC28) negative E-Cad (ECH-6) positive MORPHOMETRIC ANALYSIS ER (clone 6F11) 15%, weak intensity MS (clone 16/1E2) 0% Her-2Neu (clone CB11) 3+ Block B Calponin-1 (ZP795T) negative P40 (BC28) negative CK8 (77slnfR70) positive INTERPRETATION: A. Right breast 1 o clock, biopsy: Invasive ductal carcinoma, grade 3/3. Positive for estrogen receptors (favorable prognostic indicator). Negative for progesterone receptors (unfavorable prognostic indicator). Positive for overexpression of YXI8emz. B. Right breast 2 o clock, biopsy: [...] ductal carcinoma (no special type) Histologic Grade (Oakwood grade): Glandular/tubular differentiation - score 3 Nuclear [...] - previously performed on section of tumor (V32-3008 / [id number]). ER - positive (15%, weak intensity) MS - negative (0%) Her2 krista - positive (3+) Microcalcifications - present in both invasive carcinoma and non-neoplastic tissue. Clinical history - Please make reference to previous specimen ([id number]) right breast at 1 o clock and [...] Not significantly fatigued. Normal appetite. Neuro: Denies AMYFIELD, vertigo, dizziness and imbalance. HEENT: No recent [...] pN0(sln) MX ER positive (9%, very weak) MS negative HER overexpressed stage IIA invasive ductal carcinoma the right breast. -Recurrent pT2(m) pN0 (none of 5 LNs) MX ER +(15%, weak intensity)/MS negative (0%) HER2 3+ invasive ductal carcinoma [...] necessary. Rip Rivers DO [facility] History of Present illness Narrative* Adriana Thomas [...] PATIENT PRESENTS WITH AN IMPLANTABLE OR ATTACHED LICENSED PSYCHOLOGIST: No RADIOLOGY DEPARTMENT: CT; Exam(s) Completed: Chest PERIPHERAL IV DATA: Not applicable SIGNED BY: RT Ashley(Nayan) August 03, 2023 3:30 PM documented in this encounterCrystal Clinic [facility] Center02-14-2024 History of Present illness Narrative* Caity Cote APRN.OLIVING MACHINE OPERATOR - 07/20/2023 10:42 AM EST Chief Complaint Patient presents with: Established Patient HPI: Renate Christiansen is a 67 year old female who presents here today for evaluation for treatment tomorrow. Per Dr. Rivers's previous note: H/o discovered a lump on the lower inner portion of her right breast in the fall of 2015. She was seen at [facility] and underwent a right sided core biopsy on 02/16/2016 by interventional radiology. The tissue specimen demonstrated invasive ductal carcinoma, Yohan grade 2. ERpositive (90%, very weak) and MS negative (0%). HER-2 was quantified at 3+. [...] positive, >90% Ki-67 (30-9) positive, 12% CK8 (80jffwU93) positive CK5-6 (D5 & 1684) negative Calponin-1 (QB199B) negative P40 (BC28) negative E-Cad (ECH-6) positive MORPHOMETRIC ANALYSIS ER (clone 6F11) 15%, weak intensity MS (clone 16/1E2) 0% Her-2Neu (clone CB11) 3+ Block B Calponin-1 (BK156N) negative P40 (BC28) negative CK8 (58nxseH27) positive INTERPRETATION: A. Right breast 1 o clock, biopsy: Invasive ductal carcinoma, grade 3/3. Positive for estrogen receptors (favorable prognostic indicator). Negative for progesterone receptors (unfavorable prognostic indicator). Positive for overexpression of BYJ4irg. B. Right breast 2 o clock, biopsy: [...] - previously performed on section of tumor ([id number] / [id number]). ER - positive (15%, weak intensity) MS - negative (0%) Her2 krista - positive (3+) Microcalcifications - present in both invasive carcinoma and non-neoplastic tissue. Clinical history - Please make reference to previous specimen ([id number]) right breast at 1 o clock and [...] 4.00 k/uL 0.98 (L) 0.85 (L) 1.06 Napa% % 15.5 13.1 9.6 Abs Napa <0.87 k/uL 0.55 0.39 0.40 Eosin% % [...] as scheduled. - Follow up with Dr. Garay as scheduled. - Proceed as scheduled tomorrow for Enhertu. - Follow up as scheduled. - Pt. aware to call office with any questions/concerns. The patient indicates understanding of these issues and agrees with the plan. All documentation from previous visit of 06/08/23-Dr. Rivers was copied and pasted, documentation has been reviewed and edited as necessary for today's visit. Caity Cote APRN.OLIVING MACHINE OPERATOR documented in this encounterCrystal Clinic Orthopedic Center01-11-2024 History of Present illness Narrative* Emma Childers Evansheladio, DO - 06/16/2023 9:40 AM EST Subjective Patient ID: Renate Christiansen is a 67 y.o. female who presents for Establish Care (DOCUMENTATION SPEC/EST CARE). HPI Patient is [place] 67 y.o. [...] mg tablet Metastatic breast cancer, ER positive, MS negative, HER2 positive - she is on Enhertu now - following with oncology at [place] - on zometa 2. HTN, Cardiomyopathy 2/2 [...] hypertension [I51.9] Heart disease documented in this [facility] Work Phone: 1(891) 333-560811-22-2023 History of Present illness Narrative* Nicolle Funez RN - 04/27/2023 9:36 AM EST . documented in this encounterCrystal Clinic Orthopedic Center11-21-2023 History of Present illness Narrative* Rip Rivers DO - 04/26/2023 10:00 AM EST Diagnosis: 1) Metastatic recurrence of ER positive, MS negative, HER2 positive breast cancer. 2) Cardiomyopathy. HPI: The patient is a 67 year old female who discovered a lump on the lower inner portion of her right breast in the fall of 2015. She was seen at [facility] and underwent a right sided core biopsy on 02/16/2016 by interventional radiology. The tissue specimen demonstrated invasive ductal carcinoma, Yohan grade 2. ERpositive (90%, very weak) and MS negative (0%). HER-2 was quantified at 3+. [...] positive, >90% Ki-67 (30-9) positive, 12% CK8 (09wmpmH18) positive CK5-6 (D5 & 1684) negative Calponin-1 (NH804J) negative P40 (BC28) negative E-Cad (ECH-6) positive MORPHOMETRIC ANALYSIS ER (clone 6F11) 15%, weak intensity MS (clone 16/1E2) 0% Her-2Neu (clone CB11) 3+ Block B Calponin-1 (CX383C) negative P40 (BC28) negative CK8 (31gwgrZ13) positive INTERPRETATION: A. Right breast 1 o clock, biopsy: Invasive ductal carcinoma, grade 3/3. Positive for estrogen receptors (favorable prognostic indicator). Negative for progesterone receptors (unfavorable prognostic indicator). Positive for overexpression of DWO9kza. B. Right breast 2 o clock, biopsy: [...] ductal carcinoma (no special type) Histologic Grade (Oakwood grade): Glandular/tubular differentiation - score 3 Nuclear [...] - previously performed on section of tumor ([id number] / [id number]). ER - positive (15%, weak intensity) MS - negative (0%) Her2 krista - positive (3+) Microcalcifications - present in both invasive carcinoma and non-neoplastic tissue. Clinical history - Please make reference to previous specimen ([id number]) right breast at 1 o clock and [...] Abs Lymph 1.00 - 4.00 k/uL 1.17 Napa% % 11.6 Abs Napa <0.87 k/uL 0.51 Eosin% % 8.0 Abs [...] pN0(sln) MX ER positive (9%, very weak) MS negative HER overexpressed stage IIA invasive ductal carcinoma the right breast. -Recurrent pT2(m) pN0 (none of 5 LNs) MX ER +(15%, weak intensity)/MS negative (0%) HER2 3+ invasive ductal carcinoma [...] which included preparing to see the patient, fmgp-op-rfbu patient care, completing clinical documentation, obtaining and/or reviewing separately obtained history, performing a medically appropriate examination, counseling and educating the pat ient/family/caregiver, ordering medications, tests, or procedures, communicating with other HCPs (not separately reported), and communicating results to the patient/family/caregiver Rip Rivers DO documented in this encounterCrystal Clinic Orthopedic Center11-21-2023 History of Present illness Narrative* Nicolle Funez RN - 04/26/2023 7:19 AM EST Patient is here for IVAD port flush/blood draw per [facility] [place] protocol. IVAD is located in left upper [...] Patient tolerated procedure well. documented in this encounterCrystal Clinic Orthopedic Center11-20-2023 Miscellaneous Notes* Telephone Encounter - Chrissie Elliott [...] new order sent to her pharmacy([facility] in [place]). She stated we do not need to call her back [facility]. Sonali Cast documented in this encounterCrystal Clinic Orthopedic Center11-01-2023 History of Present illness Narrative* Caity Cote APRN.OLIVING MACHINE OPERATOR - 04/06/2023 8:36 AM EDT Chief Complaint Patient presents with: Established Patient HPI: Renate Christiansen is a 67 year old female who presents here today for evaluation for treatment tomorrow. Per Dr. Rivers's previous note: H/o pt. discovered a lump on the lower inner portion of her right breast in the fall of 2015. She was seen at [facility] and underwent a right sided core biopsy on 02/16/2016 by interventional radiology. The tissue specimen demonstrated invasive ductal carcinoma, Oakwood grade 2. ERpositive (90%, very weak) and MS negative (0%). HER-2 was quantified at 3+. [...] positive, >90% Ki-67 (30-9) positive, 12% CK8 (62ghotE11) positive CK5-6 (D5 & 1684) negative Calponin-1 (UW671V) negative P40 (BC28) negative E-Cad (ECH-6) positive MORPHOMETRIC ANALYSIS ER (clone 6F11) 15%, weak intensity MS (clone 16/1E2) 0% Her-2Neu (clone CB11) 3+ Block B Calponin-1 (XV074C) negative P40 (BC28) negative CK8 (37lpzaP61) positive INTERPRETATION: A. Right breast 1 o clock, biopsy: Invasive ductal carcinoma, grade 3/3. Positive for estrogen receptors (favorable prognostic indicator). Negative for progesterone receptors (unfavorable prognostic indicator). Positive for overexpression of QPX4vhv. B. Right breast 2 o clock, biopsy: [...] - previously performed on section of tumor (Q65-6288 / [id number]). ER - positive (15%, weak intensity) MS - negative (0%) Her2 krista - positive (3+) Microcalcifications - present in both invasive carcinoma and non-neoplastic tissue. Clinical history - Please make reference to previous specimen ([id number]) right breast at 1 o clock and [...] 1.00 - 4.00 k/uL 1.09 1.06 1.20 Napa% % 11.1 10.7 10.4 Abs Napa <0.87 k/uL 0.45 0.46 0.45 Eosin% % [...] ICD10: C78.00 Metastatic recurrence of ER positive, MS negative, HER2 positive breast cancer. Originally pT2 pN0(sln) MX ER positive (9%, very weak) MS negative HER overexpressed stage IIA invasive ductal [...] visit. Caity Cote APRN.ALESSANDRO documented in this encounterCrystal Clinic Orthopedic Center10-25-2023 Miscellaneous Notes* Telephone Encounter - Tiffany Hager - 03/30/2023 3:06 PM EDT Scheduled with patient * Telephone Encounter - Alexia Stephens - 03/30/2023 2:46 PM EDT Per CC Chart, patient needs CT Chest and a follow up call in 2 mos. for patient to return call. Alexia Stephens documented in this encounterCrystal Clinic Orthopedic Center10-25-2023 History of Present illness Narrative* Meenu Garay [...] minutes Meenu Garay MD documented in this encounterCrystal Clinic Orthopedic Center10-20-2023 Miscellaneous Notes* Telephone Encounter - Tiffany Hager - 03/25/2023 1:47 PM EDT Message relayed to patient * Telephone Encounter - Jazlyn Harding LPN - 03/25/2023 8:03 AM EDT Message left for patient to contact office. [employer] message also sent. Jazlyn Harding LPN * Telephone Encounter - Rip Rivers DO - 03/24/2023 5:37 PM EDT Can let her know ultrasound of the thyroid showed stable nodules. Radiologist recommended 1 year follow-up ultrasound. Rip Rivers DO documented in this encounterCrystal Clinic Orthopedic Center10-18-2023 History of Present illness Narrative* Doreen Capellan, RT(R) - 03/23/2023 10:45 AM EDT Radiology [...] 23, 2023 11:03 AM documented in this [facility]10-12-2023 History of Present illness Narrative* Rosemary Romero RN - 03/17/2023 1:23 PM EDT Assessment unchanged from 03/16/[address] Rivers documented in this [facility]10-11-2023 History of Present illness Narrative* Nicolle Funez RN - 03/16/2023 7:28 AM EDT Patient is here for IVAD port flush/blood draw per [facility] [place] protocol. IVAD is located in left upper [...] Patient tolerated procedure well. documented in this [facility]10-06-2023 History of Present illness Narrative* Ruth [...] 11, 2023 11:38 AM documented in this encounterCrystal Clinic Orthopedic Center09-20-2023 History of Present illness Narrative* Meenu Garay [...] planned. Meenu Garay MD documented in this encounterCrystal Clinic Orthopedic Center09-20-2023 Nurse Note* Dee Douglas RN - 02/23/2023 10:38 AM EDT Radiation Therapy - Nursing Note (OTV) PATIENT NAME: Renate Christiansen PATIENT February 23, 2023 [facility] FACILITY/LOCATION: [place] NURSING NOTE TYPE: BREAST- metastatic Subjective Data no complants Additional Data Do you want to see a Lease Examiner? No Status: Post-menopausal. Stress Scale: On a scale of 0 to 10, what number best describes how much distress you have experienced in the past week?(0 being no distress and 10 being extreme distress) 5 Social work notified: Pt denied need to see social security benefits interviewer at this time. Nursing Assessment Fatigue: increased [...] by: Dee Douglas RN documented in this encounterCrystal Clinic Orthopedic Center09-20-2023 History of Present illness Narrative* Rip Rivers, - 02/23/2023 10:02 AM EDT Diagnosis: 1) Metastatic recurrence of ER positive, MS negative, HER2 positive breast cancer. 2) Cardiomyopathy. HPI: The patient is a 67 year old female who discovered a lump on the lower inner portion of her right breast in the fall of 2015. She was seen at [facility] and underwent a right sided core biopsy on 02/16/2016 by interventional radiology. The tissue specimen demonstrated invasive ductal carcinoma, Yohan grade 2. ERpositive (90%, very weak) and MS negative (0%). HER-2 was quantified at 3+. [...] positive, >90% Ki-67 (30-9) positive, 12% CK8 (59twxzM58) positive CK5-6 (D5 & 1684) negative Calponin-1 (UZ728C) negative P40 (BC28) negative E-Cad (ECH-6) positive MORPHOMETRIC ANALYSIS ER (clone 6F11) 15%, weak intensity MS (clone 16/1E2) 0% Her-2Neu (clone CB11) 3+ Block B Calponin-1 (DT665R) negative P40 (BC28) negative CK8 (03pcjwR62) positive INTERPRETATION: A. Right breast 1 o clock, biopsy: Invasive ductal carcinoma, grade 3/3. Positive for estrogen receptors (favorable prognostic indicator). Negative for progesterone receptors (unfavorable prognostic indicator). Positive for overexpression of WGA1xfk. B. Right breast 2 o clock, biopsy: [...] - previously performed on section of tumor ([id number] / [id number]). ER - positive (15%, weak intensity) MS - negative (0%) Her2 krista - positive (3+) Microcalcifications - present in both invasive carcinoma and non-neoplastic tissue. Clinical history - Please make reference to previous specimen ([id number]) right breast at 1 o clock and [...] pN0(sln) MX ER positive (9%, very weak) MS negative HER overexpressed stage IIA invasive ductal carcinoma the right breast. -Recurrent pT2(m) pN0 (none of 5 LNs) MX ER +(15%, weak intensity)/MS negative (0%) HER2 3+ invasive ductal carcinoma [...] palliative radiation. -She had her echocardiogram at [facility] but report not yet rendered. Plan: -Continue [...] which included preparing to see the patient, iwtf-wk-hdej patient care, completing clinical documentation, obtaining and/or reviewing separately obtained history, performing a medically appropriate examination, counseling and educating the pat ient/family/caregiver, ordering medications, tests, or procedures, communicating with other HCPs (not separately reported), and communicating results to the patient/family/caregiver. Rip Rivers DO documented in this encounterCrystal Clinic Orthopedic Center09-14-2023 Discharge summary Author Malika Garay [facility] February 17, 2023 1:45pm Note Date/Time February 17, 2023 1:33pm [facility] Medical Records Department [address] [place] [address] Discharge Summary 02/17/23 1320 MR#: [id number] Acct: [id number] Name: RENATE CHRISTIANSEN Rep #:[id number] : 1955 67 From: Malika Garay DO PCP: Dr. Mitch Mejia MD Status:ADM KELLIE Location: [place] [address] Providers Date of Admission: 02/16/23 Date of [...] white female who presents emergency department at [facility] on 02/17/2023 with a chief complaint of [...] % (Auto) Cancelled, Lymph % (Auto) Cancelled, Napa % (Auto) Cancelled, Eos % (Auto) Cancelled, [...] Tear DropCells Cancelled, Ovalocytes Cancelled, Stomatocytes Cancelled, [place] Bodies Cancelled, Chisholm Cells Cancelled, Bite Cells Cancelled, Crenated Cell [...] Neut % (Auto) 58.7, Lymph % (Auto) 24.5,Napa % (Auto) 10.8 H, Eos % (Auto) [...] Self Care Charges/Coding Visit Charges Inpatient E&M: 85999 Disch Hosp 02/17/23 1345 <Electronically signed by Malika Garay DO> Cosigner Signature (if applicable): CC: Dr. Mitch Mejia MD; Dr. Malika Garay DO~ Signed [facility] Work Phone: 1(650) 146-316009-14-2023 History and physical note Author Luis Stratton [facility] February 17, 2023 9:42am Note Date/Time February 16, 2023 11:30pm [facility] Medical Records Department [address] [place] [address] H&P Exam - Hospitalist 02/16/23 2330 MR#: [id number] Acct: [id number] Name: RENATE CHRISTIANSEN Rep #:[id number] : 1955 67 From: Luis Stratton MD PCP: Dr. Mitch Mejia MD Status:ADM KELLIE Location: [place] [address] HPI - General General Date of Admission: [...] been on hold since January 13, 2023. [facility] Medical History Breast cancer metastasized to bone [...] Verified 11/26/22 11:36 skin rash hydrocodone [From [place]] Allergy hives and Verified 11/26/22 11:36 nausea [...] % (Auto) Cancelled, Lymph % (Auto) Cancelled, Napa % (Auto) Cancelled, Eos % (Auto) Cancelled, [...] Drop Cells Cancelled, Ovalocytes Cancelled, Stomatocytes Cancelled, [place] Bodies Cancelled, Tonya Cells Cancelled, Bite Cells [...] Neut % (Auto) 58.7, Lymph % (Auto) 24.5,Napa % (Auto) 10.8 H, Eos % (Auto) [...] Jacob Dunn MD at 22:49 EDT , Assessment & Plan Assessment/Plan (1) Elevated [...] documentation, 55minutes. Charges/Coding Visit Charges Inpatient E&M: 85375 Init Hosp L3 02/17/23 0942 <Electronically signed by Luis Stratton MD> Cosigner Signature (if applicable): CC: Dr. Mitch Mejia MD; Dr. Luis Stratton MD~ Signed [facility] Work Phone: 1(718) 950-597809-14-2023 Discharge summary Author Gurvinder Dill [facility] February 17, 2023 12:01am Note Date/Time February 16, 2023 7:14pm [facility] Medical Records Department [address] [place] [address] Emergency Department Summary 02/16/23 MR#: [id number] Acct: [id number] Name: RENATE CHRISTIANSEN Rep #:[id number] : 1955 67 From: Gurvinder Dill [...] no fever. She denies significant cough. [facility] Medical History (Updated 02/16/23 @ 23:[address] Gurvinder iDll, DO) Breast cancer metastasized to bone Breast [...] Verified 11/26/22 11:36 skin rash hydrocodone [From [place]] Allergy hives and Verified 11/26/22 11:36 nausea [...] arrival IV line established. Patient placed on facial operator. EKG obtained showed a sinus rhythm with [...] try to go home and follow-up with [facility] because they have always accessed her port [...] Cancelled 58.7 Lymph % (Auto) Cancelled 24.5 Napa % (Auto) Cancelled 10.8 H Eos % [...] Drop Cells Cancelled Ovalocytes Cancelled Stomatocytes Cancelled [place] Bodies Cancelled Tonya Cells Cancelled Bite Cells [...] (Auto) Neut % (Auto) Lymph % (Auto) Napa % (Auto) Eos % (Auto) Baso % [...] Target Cells Tear Drop Cells Ovalocytes Stomatocytes [place] Bodies Tonya Cells Bite Cells Crenated Cell [...] Breast cancer metastasized to lung Disposition Disposition: [facility] What to do if you have Problems For any increased pain, shortness of breath, bleeding, nausea or vomiting, chestpain, or any unexpected problems, contact your Primary Care Provider. Call [facility] ([phone]) or report to the closest Emergency Room. Call 911 if necessary. 02/17/23 0001 <Electronically signed by Gurvinder Dill DO> Cosigner Signature (if applicable): CC: Dr. Mitch Mejia MD ~ Signed [facility] Work Phone: 1(598) 576-450009-13-2023 Discharge summary Author [facility]inder [facility] February 17, 2023 12:01am Note Date/Time February 16, 2023 7:14pm [facility] Medical Records Department [address] [place] [address] Emergency Department Summary 02/16/23 MR#: [id number] Acct: [id number] Name: RENATE CHRISTIANSEN Rep #:[id number] : 1955 67 From: Gurvinder Dill [...] no fever. She denies significant cough. [facility] Medical History (Updated 02/16/23 @ 23:[address] Gurvinder Dill, ) Breast cancer metastasized to bone Breast cancer [...] Verified 11/26/22 11:36 skin rash hydrocodone [From [place]] Allergy hives and Verified 11/26/22 11:36 nausea [...] arrival IV line established. Patient placed on facial operator. EKG obtained showed a sinus rhythm with [...] try to go home and follow-up with [facility] because they have always accessed her port [...] Cancelled 58.7 Lymph % (Auto) Cancelled 24.5 Napa % (Auto) Cancelled 10.8 H Eos % [...] Drop Cells Cancelled Ovalocytes Cancelled Stomatocytes Cancelled [place] Bodies Cancelled Chisholm Cells Cancelled Bite Cells Cancelled Crenated Cell [...] (Auto) Neut % (Auto) Lymph % (Auto) Napa % (Auto) Eos % (Auto) Baso % [...] Target Cells Tear Drop Cells Ovalocytes Stomatocytes [place] Bodies Chisholm Cells Bite Cells Crenated Cell Acanthocytes (Spur) [...] Breast cancer metastasized to lung Disposition Disposition: [facility] What to do if you have Problems For any increased pain, shortness of breath, bleeding, nausea or vomiting, chestpain, or any unexpected problems, contact your Primary Care Provider. Call [facility] ([phone]) or report to the closest Emergency Room. Call 911 if necessary. 02/17/23 0001 <Electronically signed by Gurvinder Dill DO> Cosigner Signature (if applicable): CC: Dr. Mitch Mejia MD ~ Signed [facility] Work Phone: 1(442) 896-962309-13-2023 Miscellaneous Notes* Telephone Encounter - Rip Rivers [...] to Nurse. Alexia Stephens documented in this encounterCrystal Clinic Orthopedic Center09-06-2023 Nurse Note* Mady Medina RN - 02/09/2023 2:28 PM EDT Radiation Therapy - Patient Education Note PATIENT NAME: Renate Christiansen PATIENT February 09, 2023 [facility] FACILITY/LOCATION: [place] READINESS TO LEARN Cognitive Ability: Alert and [...] Department phone list, Esophagus Packet, Fatigue, and Yvonne instructions, XRT sheet and Aquaphor handout. 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 Was approved? unknown Signed by: Mady Medina RN documented in this encounterCrystal Clinic Orthopedic Center09-06-2023 History of Present illness Narrative* Meenu Garay MD, MD - 02/09/2023 12:00 AM EDT RENATE CHRISTIANSEN [id number] 02/09/2023 [facility] Department of Radiation Oncology Treatment Planning Note [...] Garay M.D. 0:52 AM documented in this encounterCrystal Clinic Orthopedic Center09-06-2023 History of Present illness Narrative* Meenu Garay MD, MD - 02/09/2023 12:00 AM EDT RENATE CHRISTIANSEN [id number] 02/09/2023 [facility] Department of Radiation Oncology [facility] RADIATION ONCOLOGY SIMULATION NOTE DATE OF SIMULATION: 02/09/2023 MACHINE: Siemens Definition CT Simulator Diagnosis: Metastatic breast cancer [...] Garay M.D./hudson 0:51 AM documented in this encounterCrystal Clinic Orthopedic Center08-31-2023 Nurse Note* Mady Medina RN - 02/03/2023 9:36 AM EDT Radiation Therapy - Nursing Note (Consult) PATIENT NAME: Renate Christiansen PATIENT February 03, 2023 [facility] FACILITY/LOCATION: [place] Chief Complaint: consult Reason for visit: Consult. Referring physician: Internal provider Dr Rivers Subjective Data: no complaints Additional Data Do you want to see a Lease Examiner? No Are you interested in information about fertility? No Status: Post-menopausal Stress Scale: On a scale of 0 to 10, what number best describes how much distress you have experienced in the past week?(0 being no distress and 10 being extreme distress) 10 Social work notified: Pt denied need to see social security benefits interviewer at this time. SIGNED by: Mady Medina RN documented in this encounterCrystal Clinic Orthopedic Center08-31-2023 History of Present illness Narrative* Meenu Garay [...] Taxol/Herceptin. It's ER positive (9%, very weak), MS negative (0%) and Her2/krista 3+. She then [...] negative. It was ER positive (15%, weak), MS negative and Her2 3+. CT chest on [...] Demerol [Meperidine* Unknown Erythromycin Unknown Latex Rash [place] [Hydrocodone-* Hives Nubain [Nalbuphine * Unknown Percocet [Oxycodone* Rash, Itching Prednisone Unknown per pt, this was given when had appendicitis and received multiple meds and she developed a rash and they had given her prednisone but at some point it was thought that it wasn't working and maybe itwas part of the problem. Ama Other: See Comments Migraine headache Sulfa (Sulfonamide [...] that other personnel such as radiation therapists, knobber, and physicists will partici lora in planning and delivery of radiation treatment. Permanent tattoo amado will be placed to aid with positioning for daily treatment and the patient consented. Patient will have a simulation procedure next week. Thank you very much for allowing us to participate in her care. Signed by: Meenu Garay MD cc: Mitch Mejia MD [address] [place] [address] Rip Rivers [address] [facility], [place] [address] documented in this encounterCrystal Clinic [facility] Center08-23-[facility]23 History of Present illness Narrative* Adriana Thomas [...] PERIPHERAL IV DATA: power port accessed by [employer] SIGNED BY: RT Ashley(R) January 26, 2023 9:36 AM documented in this encounterCrystal Clinic [facility] Center08-09-2023 History of Present illness Narrative* Rip Rivers DO - 01/12/2023 10:25 AM EDT Diagnosis: 1) Metastatic recurrence of ER positive, MS negative, HER2 positive breast cancer. 2) Cardiomyopathy. HPI: The patient is a 67 year old female who discovered a lump on the lower inner portion of her right breast in the fall of 2015. She was seen at [facility] and underwent a right sided core biopsy on 02/16/2016 by interventional radiology. The tissue specimen demonstrated invasive ductal carcinoma, Yohan grade 2. ERpositive (90%, very weak) and MS negative (0%). HER-2 was quantified at 3+. [...] positive, >90% Ki-67 (30-9) positive, 12% CK8 (60plzeW01) positive CK5-6 (D5 & 1684) negative Calponin-1 (MT490M) negative P40 (BC28) negative E-Cad (ECH-6) positive MORPHOMETRIC ANALYSIS ER (clone 6F11) 15%, weak intensity MS (clone 16/1E2) 0% Her-2Neu (clone CB11) 3+ Block B Calponin-1 (RV783R) negative P40 (BC28) negative CK8 (43pxdcI07) positive INTERPRETATION: A. Right breast 1 o clock, biopsy: Invasive ductal carcinoma, grade 3/3. Positive for estrogen receptors (favorable prognostic indicator). Negative for progesterone receptors (unfavorable prognostic indicator). Positive for overexpression of URU0rba. B. Right breast 2 o clock, biopsy: [...] - previously performed on section of tumor ([id number] / [id number]). ER - positive (15%, weak intensity) MS - negative (0%) Her2 krista - positive (3+) Microcalcifications - present in both invasive carcinoma and non-neoplastic tissue. Clinical history - Please make reference to previous specimen ([id number]) right breast at 1 o clock and [...] CARDIOVASCULAR: Rhythm is regular. 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 ABDOMEN: The abdomen is nondistended. Extremities: No swelling or edema. SKIN: Continued resolution of subcutaneous metastasis near Xyvoid. NEUROLOGIC: automatic embroidery machine tender II-XII are grossly intact. Absent patellar DTRs. [...] Lymph 1.00 - 4.00 k/uL 1.23 1.14 [place]% % 10.3 12.7 Abs [place] <0.87 k/uL 0.37 0.43 Eosin% % 7.8 [...] pN0(sln) MX ER positive (9%, very weak) MS negative HER overexpressed stage IIA invasive ductal carcinoma the right breast. -Recurrent pT2(m) pN0 (none of 5 LNs) MX ER +(15%, weak intensity)/MS negative (0%) HER2 3+ invasive ductal carcinoma [...] which included preparing to see the patient, [id number] patient care, completing clinical documentation, obtaining and/or reviewing separately obtained history, performing a medically appropriate examination, counseling and educating the pat ient/family/caregiver, ordering medications, tests, or procedures, communicating with other HCPs (not separately reported), and communicating results to the patient/family/caregiver. Rip Rivers DO documented in this encounterCrystal Clinic [facility] Center07-27-2023 Miscellaneous Notes* Telephone Encounter - Ranjana Burgos RN - 12/30/2022 12:22 PM EDT CRVIKASH 1Y2 IRB: [id number] Real World Treatment Experience of Patients with Breast, Lung, or GI Canceror Multiple Myeloma Using Remote Symptom Monitoring Informed Consent signed on: November STUDY ID #: [id number] Patient has not reached their 12-week minimum survey participation time point as of December 30, 2022. The patient was called and stated they do not want to continue completing KULA1T05 surveys. The patient knows to follow provider's treatment plan and to discontinue the OTEL6R01 surveys. Patient understands to call the office sooner if needed and has my contact information for any additional questions regarding the study. Ranjana Burgos RN 12:22 PM December 30, 2022 documented in this encounter[address]19-2023 History of Past illness Narrative* Problem Noted Date Diagnosed Date Resolved Date Platelets decreased 12/22/2022 06/08/19 24 documented as of this encounter (statuses as of 07/20/2023) [address]19-2023 History of Past illness Narrative* Problem Noted Date Diagnosed Date Resolved Date Platelets decreased 12/22/2022 06/08/19 24 documented as of this encounter (statuses as of 07/20/2023) [address]19-2023 History of Past illness Narrative* Problem Noted Date Diagnosed Date Resolved Date Platelets decreased 12/22/2022 06/08/19 24 documented as of this encounter (statuses as of 07/21/2023) [address]19-2023 History of Past illness Narrative* Problem Noted Date Diagnosed Date Resolved Date Platelets decreased 12/22/2022 06/08/19 24 documented as of this encounter (statuses as of 08/04/2023) [address]19-2023 History of Past illness Narrative* Problem Noted Date Diagnosed Date Resolved Date Platelets decreased 12/22/2022 06/08/19 24 documented as of this encounter (statuses as of 08/04/2023) [address]19-2023 History of Past illness Narrative* Problem Noted Date Diagnosed Date Resolved Date Platelets decreased 12/22/2022 06/08/19 24 documented as of this encounter (statuses as of 08/10/2023) [address]19-2023 History of Past illness Narrative* Problem Noted Date Diagnosed Date Resolved Date Platelets decreased 12/22/2022 06/08/19 24 documented as of this encounter (statuses as of 08/10/2023) [address]19-2023 History of Past illness Narrative* Problem Noted Date Diagnosed Date Resolved Date Platelets decreased 12/22/2022 06/08/19 24 documented as of this encounter (statuses as of 08/10/2023) [address]19-2023 History of Past illness Narrative* Problem Noted Date Diagnosed Date Resolved Date Platelets decreased 12/22/2022 06/08/19 24 documented as of this encounter (statuses as of 08/11/2023) [address]19-2023 History of Past illness Narrative* Problem Noted Date Diagnosed Date Resolved Date Platelets decreased 12/22/2022 06/08/19 24 documented as of this encounter (statuses as of 08/23/2023) [address]19-2023 History of Past illness Narrative* Problem Noted Date Diagnosed Date Resolved Date Platelets decreased 12/22/2022 06/08/19 24 documented as of this encounter (statuses as of 08/23/2023) [address]19-2023 History of Past illness Narrative* Problem Noted Date Diagnosed Date Resolved Date Platelets decreased 12/22/2022 06/08/19 24 documented as of this encounter (statuses as of 08/25/2023) [address]19-2023 History of Past illness Narrative* Problem Noted Date Diagnosed Date Resolved Date Platelets decreased 12/22/2022 06/08/19 24 documented as of this encounter (statuses as of 08/26/2023) [address]19-2023 History of Past illness Narrative* Problem Noted Date Diagnosed Date Resolved Date Platelets decreased 12/22/2022 06/08/19 24 documented as of this encounter (statuses as of 08/30/2023) [address]19-2023 History of Past illness Narrative* Problem Noted Date Diagnosed Date Resolved Date Platelets decreased 12/22/2022 06/08/19 24 documented as of this encounter (statuses as of 08/30/2023) [address]19-2023 History of Past illness Narrative* Problem Noted Date Diagnosed Date Resolved Date Platelets decreased 12/22/2022 06/08/19 24 documented as of this encounter (statuses as of 08/30/2023) [address]19-2023 History of Past illness Narrative* Problem Noted Date Diagnosed Date Resolved Date Platelets decreased 12/22/2022 06/08/19 24 documented as of this encounter (statuses as of 09/06/2023) [address]19-2023 History of Past illness Narrative* Problem Noted Date Diagnosed Date Resolved Date Platelets decreased 12/22/2022 06/08/19 24 documented as of this encounter (statuses as of 09/09/2023) [address]19-2023 History of Past illness Narrative* Problem Noted Date Diagnosed Date Resolved Date Platelets decreased 12/22/2022 06/08/19 24 documented as of this encounter (statuses as of 09/14/2023) [address]19-2023 History of Past illness Narrative* Problem Noted Date Diagnosed Date Resolved Date Platelets decreased 12/22/2022 06/08/19 24 documented as of this encounter (statuses as of 09/16/2023) [address]19-2023 History of Past illness Narrative* Problem Noted Date Diagnosed Date Resolved Date Platelets decreased 12/22/2022 06/08/19 24 documented as of this encounter (statuses as of 09/17/2023) [address]19-2023 History of Past illness Narrative* Problem Noted Date Diagnosed Date Resolved Date Platelets decreased 12/22/2022 06/08/19 24 documented as of this encounter (statuses as of 09/21/2023) [address]19-2023 History of Past illness Narrative* Problem Noted Date Diagnosed Date Resolved Date Platelets decreased 12/22/2022 06/08/19 24 documented as of this encounter (statuses as of 09/21/2023) [address]19-2023 History of Past illness Narrative* Problem Noted Date Diagnosed Date Resolved Date Platelets decreased 12/22/2022 06/08/19 24 documented as of this encounter (statuses as of 09/23/2023) [address]19-2023 History of Present illness Narrative* Rip Rivers, - 12/22/2022 10:46 AM EDT Diagnosis: 1) Metastatic recurrence of ER positive, MS negative, HER2 positive breast cancer. 2) Cardiomyopathy. HPI: The patient is a 67 year old female who discovered a lump on the lower inner portion of her right breast in the fall of 2015. She was seen at [facility] and underwent a right sided core biopsy on 02/16/2016 by interventional radiology. The tissue specimen demonstrated invasive ductal carcinoma, Oakwood grade 2. ERpositive (90%, very weak) and MS negative (0%). HER-2 was quantified at 3+. [...] positive, >90% Ki-67 (30-9) positive, 12% CK8 (08gxptD06) positive CK5-6 (D5 & 1684) negative Calponin-1 (WA351N) negative P40 (BC28) negative E-Cad (ECH-6) positive MORPHOMETRIC ANALYSIS ER (clone 6F11) 15%, weak intensity MS (clone 16/1E2) 0% Her-2Neu (clone CB11) 3+ Block B Calponin-1 (JU261J) negative P40 (BC28) negative CK8 (96tvefY98) positive INTERPRETATION: A. Right breast 1 o clock, biopsy: Invasive ductal carcinoma, grade 3/3. Positive for estrogen receptors (favorable prognostic indicator). Negative for progesterone receptors (unfavorable prognostic indicator). Positive for overexpression of HCZ4nlq. B. Right breast 2 o clock, biopsy: [...] ductal carcinoma (no special type) Histologic Grade (Oakwood grade): Glandular/tubular differentiation - score 3 Nuclear [...] - previously performed on section of tumor ([id number] / [id number]). ER - positive (15%, weak intensity) MS - negative (0%) Her2 krista - positive (3+) Microcalcifications - present in both invasive carcinoma and non-neoplastic tissue. Clinical history - Please make reference to previous specimen ([id number]) right breast at 1 o clock and [...] CARDIOVASCULAR: Rhythm is regular. 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 ABDOMEN: The abdomen is nondistended. Extremities: No swelling or edema. SKIN: Resolution of subcutaneous metastasis near Xyvoid. NEUROLOGIC: automatic embroidery machine tender II-XII are grossly intact. Absent patellar DTRs. [...] 1.00 - 4.00 k/uL 1.17 1.30 1.23 [place]% % 12.5 10.4 10.3 Abs [place] <0.87 k/uL 0.46 0.43 0.37 Eosin% % [...] pN0(sln) MX ER positive (9%, very weak) MS negative HER overexpressed stage IIA invasive ductal carcinoma the right breast. -Recurrent pT2(m) pN0 (none of 5 LNs) MX ER +(15%, weak intensity)/MS negative (0%) HER2 3+ invasive ductal carcinoma [...] which included preparing to see the patient, ydhn-dt-pgnv patient care, completing clinical documentation, obtaining and/or reviewing separately obtained history, performing a medically appropriate examination, counseling and educating the pat ient/family/caregiver, ordering medications, tests, or procedures, communicating with other HCPs (not separately reported), and communicating results to the patient/family/caregiver. Rip Rivers DO documented in this encounterCrystal Clinic Orthopedic Center06-28-2023 History of Present illness Narrative* Rip Rivers DO - 12/01/2022 8:38 AM EDT Diagnosis: 1) Metastatic recurrence of ER positive, MS negative, HER2 positive breast cancer. 2) Cardiomyopathy. HPI: The patient is a 67 year old female who discovered a lump on the lower inner portion of her right breast in the fall of 2015. She was seen at [facility] and underwent a right sided core biopsy on 02/16/2016 by interventional radiology. The tissue specimen demonstrated invasive ductal carcinoma, Yohan grade 2. ERpositive (90%, very weak) and MS negative (0%). HER-2 was quantified at 3+. [...] positive, >90% Ki-67 (30-9) positive, 12% CK8 (40cvzeQ06) positive CK5-6 (D5 & 1684) negative Calponin-1 (ZQ259W) negative P40 (BC28) negative E-Cad (ECH-6) positive MORPHOMETRIC ANALYSIS ER (clone 6F11) 15%, weak intensity MS (clone 16/1E2) 0% Her-2Neu (clone CB11) 3+ Block B Calponin-1 (MA150V) negative P40 (BC28) negative CK8 (29axuaS09) positive INTERPRETATION: A. Right breast 1 o clock, biopsy: Invasive ductal carcinoma, grade 3/3. Positive for estrogen receptors (favorable prognostic indicator). Negative for progesterone receptors (unfavorable prognostic indicator). Positive for overexpression of REE2voz. B. Right breast 2 o clock, biopsy: [...] ductal carcinoma (no special type) Histologic Grade (Oakwood grade): Glandular/tubular differentiation - score 3 Nuclear [...] - previously performed on section of tumor ([id number] / [id number]). ER - positive (15%, weak intensity) MS - negative (0%) Her2 krista - positive (3+) Microcalcifications - present in both invasive carcinoma and non-neoplastic tissue. Clinical history - Please make reference to previous specimen ([id number]) right breast at 1 o clock and [...] CARDIOVASCULAR: Rhythm is regular. 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 ABDOMEN: The abdomen is nondistended. Extremities: No swelling or edema. SKIN: Resolution of subcutaneous metastasis near Xyvoid. NEUROLOGIC: automatic embroidery machine tender II-XII are grossly intact. Absent patellar DTRs. [...] Abs Lymph 1.00 - 4.00 k/uL 1.30 [place]% % 10.4 Abs [place] <0.87 k/uL 0.43 Eosin% % 6.8 Abs [...] pN0(sln) MX ER positive (9%, very weak) MS negative HER overexpressed stage IIA invasive ductal carcinoma the right breast. -Recurrent pT2(m) pN0 (none of 5 LNs) MX ER +(15%, weak intensity)/MS negative (0%) HER2 3+ invasive ductal carcinoma [...] which included preparing to see the patient, vhjy-ag-pvze patient care, completing clinical documentation, obtaining and/or reviewing separately obtained history, performing a medically appropriate examination, counseling and educating the pat ient/family/caregiver, ordering medications, tests, or procedures, communicating with other HCPs (not separately reported), and communicating results to the patient/family/caregiver. Rip Rivers DO documented in this encounterCrystal Clinic Orthopedic Center06-28-2023 History of Present illness Narrative* Ana Cristina Bejarano RN - 12/01/2022 7:51 AM EDT Patient is here for IVAD port flush/blood draw per [facility] [place] protocol. IVAD is located in left upper [...] Patient tolerated procedure well. 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 Patient [...] of age or older Yes Subject understands Venezuelan Yes Subject may be any stage and [...] following: Electronic Survey via subject's personal device Auto Clutch Specialist(s): Chance Espinoza MD [facility] [address] [place] [id number] jose [email or web address] Manufacturing Planner: Eileen Null Lead Pager: [email or web address] The patient knows to follow provider's treatment plan and to complete the baseline survey within 5-days of receipt. Weekly electronic surveys to be sent for minimum of 12 weeks. Patient understands to call the office sooner if needed and has my contact information for any additional questions regarding the study. Ranjana Burgos RN 9:39 AM November 11, 2022 documented in this encounterCrystal Clinic [facility] Center06-07-2023 History of Present illness Narrative* Prince Blunt [...] 10, 2022 11:12 AM documented in this encounterCrystal Clinic Orthopedic Center06-07-2023 History of Present illness Narrative* Rip Rivers DO - 11/10/2022 10:24 AM EDT Diagnosis: 1) Metastatic recurrence of ER positive, MS negative, HER2 positive breast cancer. 2) Cardiomyopathy. HPI: The patient is a 67 year old female who discovered a lump on the lower inner portion of her right breast in the fall of 2015. She was seen at [facility] and underwent a right sided core biopsy on 02/16/2016 by interventional radiology. The tissue specimen demonstrated invasive ductal carcinoma, Yohan grade 2. ERpositive (90%, very weak) and MS negative (0%). HER-2 was quantified at 3+. [...] positive, >90% Ki-67 (30-9) positive, 12% CK8 (76dlqlS44) positive CK5-6 (D5 & 1684) negative Calponin-1 (TI350K) negative P40 (BC28) negative E-Cad (ECH-6) positive MORPHOMETRIC ANALYSIS ER (clone 6F11) 15%, weak intensity MS (clone 16/1E2) 0% Her-2Neu (clone CB11) 3+ Block B Calponin-1 (RF733X) negative P40 (BC28) negative CK8 (12klbvN69) positive INTERPRETATION: A. Right breast 1 o clock, biopsy: Invasive ductal carcinoma, grade 3/3. Positive for estrogen receptors (favorable prognostic indicator). Negative for progesterone receptors (unfavorable prognostic indicator). Positive for overexpression of HJZ5qub. B. Right breast 2 o clock, biopsy: [...] - previously performed on section of tumor ([id number] / [id number]). ER - positive (15%, weak intensity) MS - negative (0%) Her2 krista - positive (3+) Microcalcifications - present in both invasive carcinoma and non-neoplastic tissue. Clinical history - Please make reference to previous specimen ([id number]) right breast at 1 o clock and [...] CARDIOVASCULAR: Rhythm is regular. 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 ABDOMEN: The abdomen is nondistended. Extremities: No swelling or edema. SKIN: Resolution of subcutaneous metastasis near Xyvoid. NEUROLOGIC: automatic embroidery machine tender II-XII are grossly intact. Absent patellar DTRs. [...] Abs Lymph 1.00 - 4.00 k/uL 1.17 [place]% % 12.5 Abs [place] <0.87 k/uL 0.46 Eosin% % 7.6 Abs [...] pN0(sln) MX ER positive (9%, very weak) MS negative HER overexpressed stage IIA invasive ductal carcinoma the right breast. -Recurrent pT2(m) pN0 (none of 5 LNs) MX ER +(15%, weak intensity)/MS negative (0%) HER2 3+ invasive ductal carcinoma [...] which included preparing to see the patient, tylo-jx-yorb patient care, completing clinical documentation, obtaining and/or reviewing separately obtained history, performing a medically appropriate examination, counseling and educating the pat ient/family/caregiver, ordering medications, tests, or procedures, communicating with other HCPs (not separately reported), and communicating results to the patient/family/caregiver. Rip Rivers DO documented in this encounterCrystal Clinic [facility]opedic Center06-07-2023 History of Present illness Narrative* Ana Velásquez [...] well. Ana Velásquez RN documented in this [facility]06-06-[facility]23 Miscellaneous Notes* Telephone Encounter - Chrissie Lama LPN - 11/09/2022 8:58 AM EDT Left detailed message on identified voicemail echo resulted as normal. Chrissie Lama LPN documented in this encounterCrystal Clinic Orthopedic Center05-17-2023 History of Present illness Narrative* Rip Rivers DO - 10/20/2022 10:44 AM EDT Diagnosis: 1) Metastatic recurrence of ER positive, MS negative, HER2 positive breast cancer. 2) Cardiomyopathy. HPI: The patient is a 67 year old female who discovered a lump on the lower inner portion of her right breast in the fall of 2015. She was seen at [facility] and underwent a right sided core biopsy on 02/16/2016 by interventional radiology. The tissue specimen demonstrated invasive ductal carcinoma, Yohan grade 2. ERpositive (90%, very weak) and MS negative (0%). HER-2 was quantified at 3+. [...] positive, >90% Ki-67 (30-9) positive, 12% CK8 (68oymyJ52) positive CK5-6 (D5 & 1684) negative Calponin-1 (NL211S) negative P40 (BC28) negative E-Cad (ECH-6) positive MORPHOMETRIC ANALYSIS ER (clone 6F11) 15%, weak intensity MS (clone 16/1E2) 0% Her-2Neu (clone CB11) 3+ Block B Calponin-1 (LG954T) negative P40 (BC28) negative CK8 (80qvqmA14) positive INTERPRETATION: A. Right breast 1 o clock, biopsy: Invasive ductal carcinoma, grade 3/3. Positive for estrogen receptors (favorable prognostic indicator). Negative for progesterone receptors (unfavorable prognostic indicator). Positive for overexpression of PZY8cjn. B. Right breast 2 o clock, biopsy: [...] - previously performed on section of tumor ([id number] / [id number]). ER - positive (15%, weak intensity) MS - negative (0%) Her2 krista - positive (3+) Microcalcifications - present in both invasive carcinoma and non-neoplastic tissue. Clinical history - Please make reference to previous specimen ([id number]) right breast at 1 o clock and [...] (98.4 F), weight 86.2 kg (190 lb), VsV883 %. Well-appearing and in no acute distress. EYES: Sclerae are anicteric bilaterally. LYMPHATIC: There is no palpable cervical, supraclavicular, axillary adenopathy. RESPIRATORY: Normal vesicular breath sounds in all barnes. No rales, wheezes or rhonchi. CARDIOVASCULAR: Rhythm is regular. 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 ABDOMEN: The abdomen is nondistended. Extremities: No swelling or edema. SKIN: Resolution of subcutaneous metastasis near Xyvoid. NEUROLOGIC: automatic embroidery machine tender II-XII are grossly intact. Absent patellar DTRs. [...] Abs Lymph 1.00 - 4.00 k/uL 1.15 [place]% % 10.6 Abs [place] <0.87 k/uL 0.41 Eosin% % 6.5 Abs [...] pN0(sln) MX ER positive (9%, very weak) MS negative HER overexpressed stage IIA invasive ductal carcinoma the right breast. -Recurrent pT2(m) pN0 (none of 5 LNs) MX ER +(15%, weak intensity)/MS negative (0%) HER2 3+ invasive ductal carcinoma [...] read yet). -Due for echo--will order at [facility]. -Continue follow-up with Dr. Galeano. -Previously [...] which included preparing to see the patient, ndym-bj-merb patient care, completing clinical documentation, obtaining and/or reviewing separately obtained history, performing a medically appropriate examination, counseling and educating the pat ient/family/caregiver, ordering medications, tests, or procedures, communicating with other HCPs (not separately reported), and communicating results to the patient/family/caregiver. Rip Rivers DO documented in this encounterCrystal Clinic [facility] Center05-15-2023 History of Present illness Narrative* Adriana Thomas [...] PERIPHERAL IV DATA: power port accessed by [employer] SIGNED BY: RT Ashley(Nayan) October 18, 2022 2:35 PM documented in this encounterCrystal Clinic Orthopedic Center04-26-2023 Miscellaneous Notes* Telephone Encounter - Jazlyn Harding [...] patient. Jazlyn Harding LPN documented in this encounterCrystal Clinic Orthopedic Center04-19-2023 History of Present illness Narrative* Morena Doe [...] 22, 2022 3:11 PM documented in this encounterCrystal Clinic Orthopedic Center04-05-2023 History of Present illness Narrative* Rip Rivers DO - 09/08/2022 11:06 AM EDT Diagnosis: 1) Metastatic recurrence of ER positive, MS negative, HER2 positive breast cancer. 2) Cardiomyopathy. HPI: The patient is a 66 year old female who discovered a lump on the lower inner portion of her right breast in the fall of 2015. She was seen at [facility] and underwent a right sided core biopsy on 02/16/2016 by interventional radiology. The tissue specimen demonstrated invasive ductal carcinoma, Yohan grade 2. ERpositive (90%, very weak) and MS negative (0%). HER-2 was quantified at 3+. [...] positive, >90% Ki-67 (30-9) positive, 12% CK8 (44ovfuK45) positive CK5-6 (D5 & 1684) negative Calponin-1 (WX052V) negative P40 (BC28) negative E-Cad (ECH-6) positive MORPHOMETRIC ANALYSIS ER (clone 6F11) 15%, weak intensity MS (clone 16/1E2) 0% Her-2Neu (clone CB11) 3+ Block B Calponin-1 (EA222M) negative P40 (BC28) negative CK8 (65brwyF29) positive INTERPRETATION: A. Right breast 1 o clock, biopsy: Invasive ductal carcinoma, grade 3/3. Positive for estrogen receptors (favorable prognostic indicator). Negative for progesterone receptors (unfavorable prognostic indicator). Positive for overexpression of LNB4vos. B. Right breast 2 o clock, biopsy: [...] ductal carcinoma (no special type) Histologic Grade (Oakwood grade): Glandular/tubular differentiation - score 3 Nuclear [...] - previously performed on section of tumor ([id number] / [id number]). ER - positive (15%, weak intensity) MS - negative (0%) Her2 krista - positive (3+) Microcalcifications - present in both invasive carcinoma and non-neoplastic tissue. Clinical history - Please make reference to previous specimen ([id number]) right breast at 1 o clock and [...] CARDIOVASCULAR: Rhythm is regular. 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 Left breast--no mass appreciated. ABDOMEN: The abdomen is nondistended. Extremities: No swelling or edema. SKIN: Resolution of subcutaneous metastasis near Xyvoid. NEUROLOGIC: automatic embroidery machine tender II-XII are grossly intact. Absent patellar DTRs. [...] Lymph 1.00 - 4.00 k/uL 1.22 1.24 [place]% % 13.4 12.9 Abs [place] <0.87 k/uL 0.50 0.54 Eosin% % 5.4 [...] pN0(sln) MX ER positive (9%, very weak) MS negative HER overexpressed stage IIA invasive ductal carcinoma the right breast. -Recurrent pT2(m) pN0 (none of 5 LNs) MX ER +(15%, weak intensity)/MS negative (0%) HER2 3+ invasive ductal carcinoma [...] which included preparing to see the patient, [id number] patient care, completing clinical documentation, obtaining and/or reviewing separately obtained history, performing a medically appropriate examination, counseling and educating the pat ient/family/caregiver, ordering medications, tests, or procedures, and communicating results to thepatient/family/caregiver. Rip Rivers DO documented in this encounterCrystal Clinic [facility] Center03-23-2023 Miscellaneous Notes* Telephone Encounter - Tiffany Hager - 08/26/2022 9:45 AM EDT Patient informed. * Telephone Encounter - Alexia Stephens - 08/26/2022 9:40 AM EDT LM for patient to return call to schedule. When patient calls, please transfer to Breast Center at [phone] to schedule diagnostic mammogram. Once transferred, please [...] schedule. Rip Rivers DO documented in this encounterCrystal Clinic Orthopedic Center03-21-2023 Miscellaneous Notes* Letter - Mammography Coordinator - 08/24/2022 3:06 PM EDT August 25, 2022 PID: [id number] Renate Christiansen [address] [place] [address] Dear Ms. Christiansen, Your recent breast imaging [...] who ordered/prescribed your screening mammogram: Please call [phone] or [phone] to schedule an appointment for your additional [...] and reports are kept on [facility] at [facility] as part of your permanent medical record, and are available for your continuing care. Thank you for allowing us to help in meeting your health care needs. Sincerely, Dr. Pablo Interpreting Radiologist [facility] (Additional imaging) documented in this encounterCrystal Clinic Orthopedic Center03-20-2023 History of Present illness Narrative* Annamaria Gonzales Mammo Tech - 08/23/2022 1:30 PM EDT [...] PERIPHERAL IV DATA: Not applicable SIGNED BY: Cintia Sanchezo Marianela August 23, 2022 1:56 PM documented in this encounterCrystal Clinic Orthopedic Center03-15-2023 History of Present illness Narrative* Rip Rivers, - 08/18/2022 10:47 AM EDT Diagnosis: 1) Metastatic recurrence of ER positive, MS negative, HER2 positive breast cancer. 2) Cardiomyopathy. HPI: The patient is a 66 year old female who discovered a lump on the lower inner portion of her right breast in the fall of 2015. She was seen at [facility] and underwent a right sided core biopsy on 02/16/2016 by interventional radiology. The tissue specimen demonstrated invasive ductal carcinoma, Oakwood grade 2. ERpositive (90%, very weak) and MS negative (0%). HER-2 was quantified at 3+. [...] positive, >90% Ki-67 (30-9) positive, 12% CK8 (17ldbtK60) positive CK5-6 (D5 & 1684) negative Calponin-1 (JA576Y) negative P40 (BC28) negative E-Cad (ECH-6) positive MORPHOMETRIC ANALYSIS ER (clone 6F11) 15%, weak intensity MS (clone 16/1E2) 0% Her-2Neu (clone CB11) 3+ Block B Calponin-1 (KR751G) negative P40 (BC28) negative CK8 (48bhqmE25) positive INTERPRETATION: A. Right breast 1 o clock, biopsy: Invasive ductal carcinoma, grade 3/3. Positive for estrogen receptors (favorable prognostic indicator). Negative for progesterone receptors (unfavorable prognostic indicator). Positive for overexpression of OUU0ipm. B. Right breast 2 o clock, biopsy: [...] - previously performed on section of tumor ([id number] / [id number]). ER - positive (15%, weak intensity) MS - negative (0%) Her2 krista - positive (3+) Microcalcifications - present in both invasive carcinoma and non-neoplastic tissue. Clinical history - Please make reference to previous specimen ([id number]) right breast at 1 o clock and [...] CARDIOVASCULAR: Rhythm is regular. 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 ABDOMEN: The abdomen is nondistended. Extremities: No swelling or edema. SKIN: Resolution of subcutaneous metastasis near Xyvoid. NEUROLOGIC: automatic embroidery machine tender II-XII are grossly intact. Absent patellar DTRs. [...] 1.00 - 4.00 k/uL 1.55 1.18 1.22 [place]% % 10.3 10.2 13.4 Abs [place] <0.87 k/uL 0.45 0.37 0.50 Eosin% % [...] pN0(sln) MX ER positive (9%, very weak) MS negative HER overexpressed stage IIA invasive ductal carcinoma the right breast. -Recurrent pT2(m) pN0 (none of 5 LNs) MX ER +(15%, weak intensity)/MS negative (0%) HER2 3+ invasive ductal carcinoma [...] Reviewed most recent echocardiogram results done at [facility]--scanned. No change from previous. EF normal. [...] which included preparing to see the patient, [id number] patient care, completing clinical documentation, obtaining and/or reviewing separately obtained history, performing a medically appropriate examination, ordering medications, tests, or procedures, and communicating results to the patient/family/caregiver. Rip Rivers DO documented in this encounterCrystal Clinic Orthopedic Center02-24-2023 Miscellaneous Notes* Telephone Encounter - Alexia Stephens [...] cycles. Rip Rivers DO documented in this encounterCrystal Clinic Orthopedic Center02-23-2023 History of Present illness Narrative* Caity Cote APRN.OLIVING MACHINE OPERATOR - 07/29/2022 9:09 AM EST Chief Complaint Patient presents with: Established Patient HPI: Renate Christiansen is a 66 year old female who presents here today for evaluation for treatment today. Per Dr. Rivers's previous note: H/o discovered a lump on the lower inner portion of her right breast in the fall of 2015. She was seen at [facility] and underwent a right sided core biopsy on 02/16/2016 by interventional radiology. The tissue specimen demonstrated invasive ductal carcinoma, Oakwood grade 2. ERpositive (90%, very weak) and MS negative (0%). HER-2 was quantified at 3+. [...] positive, >90% Ki-67 (30-9) positive, 12% CK8 (52tiwaY94) positive CK5-6 (D5 & 1684) negative Calponin-1 (KX626U) negative P40 (BC28) negative E-Cad (ECH-6) positive MORPHOMETRIC ANALYSIS ER (clone 6F11) 15%, weak intensity MS (clone 16/1E2) 0% Her-2Neu (clone CB11) 3+ Block B Calponin-1 (FZ134C) negative P40 (BC28) negative CK8 (07jvbgQ30) positive INTERPRETATION: A. Right breast 1 o clock, biopsy: Invasive ductal carcinoma, grade 3/3. Positive for estrogen receptors (favorable prognostic indicator). Negative for progesterone receptors (unfavorable prognostic indicator). Positive for overexpression of YVW6fob. B. Right breast 2 o clock, biopsy: [...] - previously performed on section of tumor ([id number] / [id number]). ER - positive (15%, weak intensity) MS - negative (0%) Her2 krista - positive (3+) Microcalcifications - present in both invasive carcinoma and non-neoplastic tissue. Clinical history - Please make reference to previous specimen ([id number]) right breast at 1 o clock and [...] 1.00 - 4.00 k/uL 1.34 1.55 1.18 [place]% % 9.7 10.3 10.2 Abs [place] <0.87 k/uL 0.51 0.45 0.37 Eosin% % [...] (primary diagnosis) Metastatic recurrence of ER positive, MS negative, HER2 positive breast cancer. 2. Bone [...] as necessary for today's visit. Caity Cote APRN.OLIVING MACHINE OPERATOR documented in this encounterCrystal Clinic Orthopedic Center02-23-2023 History of Present illness Narrative* Rosemary Romero RN - 07/29/2022 8:48 AM EST . documented in this encounterCrystal Clinic Orthopedic Center02-21-2023 History of Present illness Narrative* Adriana Thomas [...] PERIPHERAL IV DATA: power port accessed by [employer] SIGNED BY: RT Ashley(R) July 27, 2022 3:22 PM documented in this encounterCrystal Clinic Orthopedic Center01-31-2023 History of Present illness Narrative* Rip Rivers, - 07/06/2022 8:47 AM EST Diagnosis: 1) Metastatic recurrence of ER positive, MS negative, HER2 positive breast cancer. 2) Cardiomyopathy. HPI: The patient is a 66 year old female who discovered a lump on the lower inner portion of her right breast in the fall of 2015. She was seen at [facility] and underwent a right sided core biopsy on 02/16/2016 by interventional radiology. The tissue specimen demonstrated invasive ductal carcinoma, Oakwood grade 2. ERpositive (90%, very weak) and MS negative (0%). HER-2 was quantified at 3+. [...] positive, >90% Ki-67 (30-9) positive, 12% CK8 (94raacW95) positive CK5-6 (D5 & 1684) negative Calponin-1 (ZY001Z) negative P40 (BC28) negative E-Cad (ECH-6) positive MORPHOMETRIC ANALYSIS ER (clone 6F11) 15%, weak intensity MS (clone 16/1E2) 0% Her-2Neu (clone CB11) 3+ Block B Calponin-1 (NV022Q) negative P40 (BC28) negative CK8 (36junmP12) positive INTERPRETATION: A. Right breast 1 o clock, biopsy: Invasive ductal carcinoma, grade 3/3. Positive for estrogen receptors (favorable prognostic indicator). Negative for progesterone receptors (unfavorable prognostic indicator). Positive for overexpression of MXZ5vdw. B. Right breast 2 o clock, biopsy: [...] ductal carcinoma (no special type) Histologic Grade (Oakwood grade): Glandular/tubular differentiation - score 3 Nuclear [...] - previously performed on section of tumor ([id number] / [id number]). ER - positive (15%, weak intensity) MS - negative (0%) Her2 krista - positive (3+) Microcalcifications - present in both invasive carcinoma and non-neoplastic tissue. Clinical history - Please make reference to previous specimen ([id number]) right breast at 1 o clock and [...] CARDIOVASCULAR: Rhythm is regular. 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 ABDOMEN: The abdomen is nondistended. Extremities: No swelling or edema. SKIN: Resolution of subcutaneous metastasis near Xyvoid. NEUROLOGIC: automatic embroidery machine tender II-XII are grossly intact. Absent patellar DTRs. [...] Abs Lymph 1.00 - 4.00 k/uL 1.55 [place]% % 10.3 Abs [place] <0.87 k/uL 0.45 Eosin% % 5.5 Abs [...] pN0(sln) MX ER positive (9%, very weak) MS negative HER overexpressed stage IIA invasive ductal carcinoma the right breast. -Recurrent pT2(m) pN0 (none of 5 LNs) MX ER +(15%, weak intensity)/MS negative (0%) HER2 3+ invasive ductal carcinoma [...] Reviewed most recent echocardiogram results done at [facility]--scanned. No change from previous. EF normal. [...] care. Rip Rivers DO documented in this encounterCrystal Clinic Orthopedic Center01-31-2023 History of Present illness Narrative* Nicolle Funez RN - 07/06/2022 7:24 AM EST Patient is here for IVAD port flush/blood draw per [facility] protocol. IVAD is located in left upper [...] Patient tolerated procedure well. documented in this encounterCrystal Clinic Orthopedic Center01-10-2023 History of Present illness Narrative* Caity Cote APRN.OLIVING MACHINE OPERATOR - 06/15/2022 8:22 AM EST Chief Complaint Patient presents with: Established Patient HPI: Renate Christiansen is a 66 year old female who presents here today for evaluation for treatment on . Per Dr. Rivers's previous note: H/o pt. discovered a lump on the lower inner portion of her right breast in the fall of 2015. She was seen at [facility] and underwent a right sided core biopsy on 02/16/2016 by interventional radiology. The tissue specimen demonstrated invasive ductal carcinoma, Yohan grade 2. ERpositive (90%, very weak) and MS negative (0%). HER-2 was quantified at 3+. [...] positive, >90% Ki-67 (30-9) positive, 12% CK8 (80rhbhQ61) positive CK5-6 (D5 & 1684) negative Calponin-1 (DS986A) negative P40 (BC28) negative E-Cad (ECH-6) positive MORPHOMETRIC ANALYSIS ER (clone 6F11) 15%, weak intensity MS (clone 16/1E2) 0% Her-2Neu (clone CB11) 3+ Block B Calponin-1 (EN575L) negative P40 (BC28) negative CK8 (35grizL56) positive INTERPRETATION: A. Right breast 1 o clock, biopsy: Invasive ductal carcinoma, grade 3/3. Positive for estrogen receptors (favorable prognostic indicator). Negative for progesterone receptors (unfavorable prognostic indicator). Positive for overexpression of PYX3jdi. B. Right breast 2 o clock, biopsy: [...] - previously performed on section of tumor ([id number] / [id number]). ER - positive (15%, weak intensity) MS - negative (0%) Her2 krista - positive (3+) Microcalcifications - present in both invasive carcinoma and non-neoplastic tissue. Clinical history - Please make reference to previous specimen ([id number]) right breast at 1 o clock and [...] (primary diagnosis) Metastatic recurrence of ER positive, MS negative, HER2 positive breast cancer. 2. Bone [...] of Jun. Pt. has this done at [facility]. - Follow up with Dr. Rivers as scheduled. - Pt. aware to call office with any questions/concerns. The patient indicates understanding of these issues and agrees with the plan. All documentation from previous visit of 05/25/22-Dr. Rivers was copied and pasted, documentation has been reviewed and edited as necessary for today's visit. Caity Cote APRN.CNP documented in this encounterCrystal Clinic Orthopedic Center12-28-2022 Miscellaneous Notes* Telephone Encounter - Jazlyn Harding LPN - 06/02/2022 4:23 PM EST Letter was dictated under Dr. Rivers's name ( he is out of office until 06/08/2022). Patient's current handicap placard does not until 08/11/2022. Will send [employer] message with above information. Jazlyn Harding LPN [...] Please assist. Alexia Stephens documented in this encounterCrystal Clinic Orthopedic Center12-22-2022 History of Present illness Narrative* Lexie Hartley RN - 05/27/2022 11:00 AM EST No changes to assessment from 05/25/22. Lexie Hartley RN documented in this encounterCrystal Clinic Orthopedic Center12-20-2022 Miscellaneous Notes* Telephone Encounter - Delaney Cast - 05/25/2022 2:30 PM EST Patient returned call and given message below * Telephone Encounter - Jazlyn Harding LPN - 05/25/2022 1:13 PM EST Message left for patient to contact office. [employer] message also sent. Jazlyn Harding LPN * Telephone Encounter - Rip Rivers DO - 05/25/2022 10:36 AM EST Her potassium is running a little low. Keeping optimal potassium levels is important for her heart.Please advise her to start prescription potassium supplement. Rip Rivers DO documented in this encounterCrystal Clinic Orthopedic Center12-20-2022 History of Present illness Narrative* Rip Rivers DO - 05/25/2022 8:13 AM EST Diagnosis: 1) Metastatic recurrence of ER positive, MS negative, HER2 positive breast cancer. 2) Cardiomyopathy. HPI: The patient is a 66 year old female who discovered a lump on the lower inner portion of her right breast in the fall of 2015. She was seen at [facility] and underwent a right sided core biopsy on 02/16/2016 by interventional radiology. The tissue specimen demonstrated invasive ductal carcinoma, Oakwood grade 2. ERpositive (90%, very weak) and MS negative (0%). HER-2 was quantified at 3+. [...] positive, >90% Ki-67 (30-9) positive, 12% CK8 (44ayubR58) positive CK5-6 (D5 & 1684) negative Calponin-1 (KB520C) negative P40 (BC28) negative E-Cad (ECH-6) positive MORPHOMETRIC ANALYSIS ER (clone 6F11) 15%, weak intensity MS (clone 16/1E2) 0% Her-2Neu (clone CB11) 3+ Block B Calponin-1 (TD420V) negative P40 (BC28) negative CK8 (11kzgsO94) positive INTERPRETATION: A. Right breast 1 o clock, biopsy: Invasive ductal carcinoma, grade 3/3. Positive for estrogen receptors (favorable prognostic indicator). Negative for progesterone receptors (unfavorable prognostic indicator). Positive for overexpression of OMK6hpb. B. Right breast 2 o clock, biopsy: [...] - previously performed on section of tumor ([id number] / BC99-1914). ER - positive (15%, weak intensity) MS - negative (0%) Her2 krista - positive (3+) Microcalcifications - present in both invasive carcinoma and non-neoplastic tissue. Clinical history - Please make reference to previous specimen ([id number]) right breast at 1 o clock and [...] done more this holiday season than the lasttwo. Subcutaneous metastasis on the anterior lower chest [...] Resolution of subcutaneous metastasis near Xyvoid. NEUROLOGIC: automatic embroidery machine tender II-XII are grossly intact. Absent patellar DTRs. [...] Abs Lymph 1.00 - 4.00 k/uL 1.32 [place]% % 11.2 Abs [place] <0.87 k/uL 0.53 Eosin% % 5.1 Abs [...] pN0(sln) MX ER positive (9%, very weak) MS negative HER overexpressed stage IIA invasive ductal carcinoma the right breast. -Recurrent pT2(m) pN0 (none of 5 LNs) MX ER +(15%, weak intensity)/MS negative (0%) HER2 3+ invasive ductal carcinoma [...] care. Rip Rivers DO documented in this encounterCrystal Clinic Orthopedic Center12-19-2022 Miscellaneous Notes* Telephone Encounter - Ami Gilmore [...] 4:17 PM EST . documented in this encounterCrystal Clinic Orthopedic Center11-21-2022 History of Present illness Narrative* Adriana Thomas RT(R) - 04/26/2022 10:00 AM EST Radiology [...] accessed by hemoc SIGNED BY: RT Ashley(R) April 26, 2022 4:15 PM documented in this encounterCrystal Clinic Orthopedic Center11-14-2022 Miscellaneous Notes* Telephone Encounter - Jazlyn Harding LPN - 04/19/2022 12:57 PM EST All pages were faxed twice now. Jazlyn Harding LPN * Telephone Encounter - Tiffany Cast - 04/19/2022 12:51 PM EST [facility] called stating page 2 is needed for Echo order. They state they need a doc signature. * Telephone Encounter - Jazlyn Harding LPN - 04/19/2022 12:37 PM EST Order faxed and patient notified. Jazlyn Harding LPN * Telephone Encounter - Kwame Guerrero - 04/19/2022 12:14 PM EST Patient is requesting ECHO order to be faxed to [facility], did not have fax number. Please call patient once faxed. documented in this encounterCrystal Clinic Orthopedic Center11-11-2022 Miscellaneous Notes* Telephone Encounter - Alexia Stephens - 04/16/2022 4:46 PM EST Echo orders faxed to [facility]. All other appointments scheduled. Alexia Stephens * Telephone Encounter - Emely Lay - 04/14/2022 9:45 AM ESTSummary: AVS 04/14 Check out comments: - ECHO due-done at [facility]. - CT chest/abd/pelvis due. - Continue Zometa every 3 months. - Proceed as scheduled tomorrow for enhertu pending all labs. - Follow up as scheduled. - Pt. aware to call office with any questions/concerns. Pt stated she would stop at desk tomorrow to schedule the above because she forgot her phone/calendar at home documented in this encounterCrystal Clinic Orthopedic Center11-10-2022 History of Present illness Narrative* Rosemary Romero RN - 04/15/2022 10:25 AM EST Assessment unchanged from 04/14/22 office visit with Jeniffer Cote CNP documented in this encounterCrystal Clinic Orthopedic Center11-09-2022 History of Present illness Narrative* Caity Cote [...] fall of 2015. She was seen at [facility] and underwent a right sided core biopsy on 02/16/2016 by interventional radiology. The tissue specimen demonstrated invasive ductal carcinoma, Yohan grade 2. ERpositive (90%, very weak) and MS negative (0%). HER-2 was quantified at 3+. [...] positive, >90% Ki-67 (30-9) positive, 12% CK8 (96lbrrV93) positive CK5-6 (D5 & 1684) negative Calponin-1 (QE732A) negative P40 (BC28) negative E-Cad (ECH-6) positive MORPHOMETRIC ANALYSIS ER (clone 6F11) 15%, weak intensity MS (clone 16/1E2) 0% Her-2Neu (clone CB11) 3+ Block B Calponin-1 (CR438A) negative P40 (BC28) negative CK8 (70kymzC90) positive INTERPRETATION: A. Right breast 1 o clock, biopsy: Invasive ductal carcinoma, grade 3/3. Positive for estrogen receptors (favorable prognostic indicator). Negative for progesterone receptors (unfavorable prognostic indicator). Positive for overexpression of QXB2nky. B. Right breast 2 o clock, biopsy: [...] - previously performed on section of tumor ([id number] / [id number]). ER - positive (15%, weak intensity) MS - negative (0%) Her2 krista - positive (3+) Microcalcifications - present in both invasive carcinoma and non-neoplastic tissue. Clinical history - Please make reference to previous specimen ([id number]) right breast at 1 o clock and [...] 1.00 - 4.00 k/uL 1.59 1.26 1.47 [place]% % 11.0 12.4 11.2 Abs [place] <0.87 k/uL 0.47 0.53 0.52 Eosin% % [...] pN0(sln) MX ER positive (9%, very weak) MS negative HER overexpressed stage IIA invasive ductal carcinoma the right breast. -Recurrent pT2(m) pN0 (none of 5 LNs) MX ER +(15%, weak intensity)/MS negative (0%) HER2 3+ invasive ductal carcinoma [...] up with cardiology. - ECHO due-done at [facility]. - CT chest/abd/pelvis due. - Continue [...] visit. Caity Cote APRN.ALESSANDRO documented in this encounterCrystal Clinic Orthopedic Center11-09-2022 History of Present illness Narrative* Nicolle Funez RN - 04/14/2022 7:42 AM EST Patient is here for IVAD port flush/blood draw per [facility] protocol. IVAD is located in right upper [...] Patient tolerated procedure well. documented in this encounterCrystal Clinic Orthopedic Center09-26-2022 Miscellaneous Notes* Telephone Encounter - Caity Cote [...] Out reach. Please fax Lyrica refill to: [phone] documented in this encounterCrystal Clinic Orthopedic Center09-21-2022 History of Present illness Narrative* Caity Cote [...] fall of 2015. She was seen at [facility] and underwent a right sided core biopsy on 02/16/2016 by interventional radiology. The tissue specimen demonstrated invasive ductal carcinoma, Oakwood grade 2. ERpositive (90%, very weak) and MS negative (0%). HER-2 was quantified at 3+. [...] positive, >90% Ki-67 (30-9) positive, 12% CK8 (23thtiI93) positive CK5-6 (D5 & 1684) negative Calponin-1 (TY941D) negative P40 (BC28) negative E-Cad (ECH-6) positive MORPHOMETRIC ANALYSIS ER (clone 6F11) 15%, weak intensity MS (clone 16/1E2) 0% Her-2Neu (clone CB11) 3+ Block B Calponin-1 (GB658R) negative P40 (BC28) negative CK8 (31ahbaB63) positive INTERPRETATION: A. Right breast 1 o clock, biopsy: Invasive ductal carcinoma, grade 3/3. Positive for estrogen receptors (favorable prognostic indicator). Negative for progesterone receptors (unfavorable prognostic indicator). Positive for overexpression of MWM1jfb. B. Right breast 2 o clock, biopsy: [...] - previously performed on section of tumor ([id number] / [id number]). ER - positive (15%, weak intensity) MS - negative (0%) Her2 krista - positive (3+) Microcalcifications - present in both invasive carcinoma and non-neoplastic tissue. Clinical history - Please make reference to previous specimen ([id number]) right breast at 1 o clock and [...] - 4.00 k/uL 1.22 1.17 1.50 1.59 [place]% % 11.4 5.2 11.6 11.0 Abs [place] <0.87 k/uL 0.43 0.45 0.51 0.47 Eosin% [...] pN0(sln) MX ER positive (9%, very weak) MS negative HER overexpressed stage IIA invasive ductal carcinoma the right breast. -Recurrent pT2(m) pN0 (none of 5 LNs) MX ER +(15%, weak intensity)/MS negative (0%) HER2 3+ invasive ductal carcinoma [...] visit. Caity Cote APRN.ALESSANDRO documented in this encounterCrystal Clinic [facility]09-13-2022 Miscellaneous Notes* Telephone Encounter - Chrissie Lama [...] patient. Chrissie Lama LPN documented in this encounterCrystal Clinic Orthopedic Center08-31-2022 History of Present illness Narrative* Rip Rivers DO - 02/03/2022 9:50 AM EDT Diagnosis: 1) Metastatic recurrence of ER positive, MS negative, HER2 positive breast cancer. 2) Cardiomyopathy. HPI: The patient is a 66 year old female who discovered a lump on the lower inner portion of her right breast in the fall of 2015. She was seen at [facility] and underwent a right sided core biopsy on 02/16/2016 by interventional radiology. The tissue specimen demonstrated invasive ductal carcinoma, Yohan grade 2. ERpositive (90%, very weak) and MS negative (0%). HER-2 was quantified at 3+. [...] positive, >90% Ki-67 (30-9) positive, 12% CK8 (93fewkU89) positive CK5-6 (D5 & 1684) negative Calponin-1 (VQ777X) negative P40 (BC28) negative E-Cad (ECH-6) positive MORPHOMETRIC ANALYSIS ER (clone 6F11) 15%, weak intensity MS (clone 16/1E2) 0% Her-2Neu (clone CB11) 3+ Block B Calponin-1 (EN086P) negative P40 (BC28) negative CK8 (39twctG93) positive INTERPRETATION: A. Right breast 1 o clock, biopsy: Invasive ductal carcinoma, grade 3/3. Positive for estrogen receptors (favorable prognostic indicator). Negative for progesterone receptors (unfavorable prognostic indicator). Positive for overexpression of EEC5btz. B. Right breast 2 o clock, biopsy: [...] ductal carcinoma (no special type) Histologic Grade (Oakwood grade): Glandular/tubular differentiation - score 3 Nuclear [...] - previously performed on section of tumor ([id number] / [id number]). ER - positive (15%, weak intensity) MS - negative (0%) Her2 krista - positive (3+) Microcalcifications - present in both invasive carcinoma and non-neoplastic tissue. Clinical history - Please make reference to previous specimen ([id number]) right breast at 1 o clock and [...] Resolution of subcutaneous metastasis near Xyvoid. NEUROLOGIC: automatic embroidery machine tender II-XII are grossly intact. Absent patellar DTRs. ASSESSMENT/PLAN: (C50.311, Z17.0) Malignant neoplasm of lower-inner quadrant of right breast of female, estrogen receptor positive (HCC) (primary encounter diagnosis) Assessment: -Originally pT2 pN0(sln) MX ER positive (9%, very weak) MS negative HER overexpressed stage IIA invasive ductal carcinoma the right breast. -Recurrent pT2(m) pN0 (none of 5 LNs) MX ER +(15%, weak intensity)/MS negative (0%) HER2 3+ invasive ductal carcinoma [...] care. Rip Rivers DO documented in this encounterCrystal Clinic Orthopedic Center08-31-2022 History of Present illness Narrative* Nicolle Funez RN - 02/03/2022 7:51 AM EDT Patient is here for IVAD port flush/blood draw per [facility] [place] protocol. IVAD is located in left upper [...] Patient tolerated procedure well. documented in this encounterCrystal Clinic Orthopedic Center08-04-2022 Miscellaneous Notes* Telephone Encounter - Jazlyn Harding LPN - 01/07/2022 11:51 AM EDT New order faxed to [facility] echo lab. Jazlyn Harding LPN * [...] Crystal Irby - 01/07/2022 10:55 AM EDT [facility] echo lab is calling in regards to this pts order, please call them back at [phone] ext [phone]. Crystal Irby documented in this encounterCrystal Clinic Orthopedic Center08-04-2022 History of Present illness Narrative* RT Rima(R) [...] 07, 2022 2:26 PM documented in this encounterCrystal Clinic Orthopedic Center08-04-2022 History of Present illness Narrative* Nicolle Funez RN - 01/07/2022 7:40 AM EDT Patient is here for IVAD port flush/blood draw per [facility] [place] protocol. IVAD is located in right upper [...] Patient tolerated procedure well. documented in this encounterCrystal Clinic Orthopedic Center07-22-2022 Miscellaneous Notes* Telephone Encounter - Karen Foreman - 12/25/2021 1:00 PM EDT Patient is rescheduled, aware of date and time. Karen Foreman * Telephone Encounter - Leesa Cast - 12/25/2021 11:21 AM EDT Patient called, said she has a CT scheduled on 01/11 but questions the date because Mary Cote said to have it done early Jan so Silvestre can see it? Can be reached at [phone] Thank you Leesa Cast documented in this encounterCrystal Clinic Orthopedic Center07-21-2022 Miscellaneous Notes* Telephone Encounter - Emma Cast - 12/24/2021 3:52 PM EDT Echo order faxed to [facility]. Patient due end of January. documented in this encounterCrystal Clinic Orthopedic Center07-20-2022 History of Present illness Narrative* Caity Cote APRN.ALESSANDRO - 12/23/2021 9:28 AM EDT Chief Complaint Patient presents with: Established Patient HPI: Renate Christiansen is a 66 year old female who presents here today for evaluation for treatment tomorrow. Per Dr. Rivers's previous note: H/o pt. discovered a lump on the lower inner portion of her right breast in the fall of 2015. She was seen at [facility] and underwent a right sided core biopsy on 02/16/2016 by interventional radiology. The tissue specimen demonstrated invasive ductal carcinoma, Oakwood grade 2. ERpositive (90%, very weak) and MS negative (0%). HER-2 was quantified at 3+. [...] positive, >90% Ki-67 (30-9) positive, 12% CK8 (78woqcL58) positive CK5-6 (D5 & 1684) negative Calponin-1 (NK448M) negative P40 (BC28) negative E-Cad (ECH-6) positive MORPHOMETRIC ANALYSIS ER (clone 6F11) 15%, weak intensity MS (clone 16/1E2) 0% Her-2Neu (clone CB11) 3+ Block B Calponin-1 (RD963Y) negative P40 (BC28) negative CK8 (89imbmF16) positive INTERPRETATION: A. Right breast 1 o clock, biopsy: Invasive ductal carcinoma, grade 3/3. Positive for estrogen receptors (favorable prognostic indicator). Negative for progesterone receptors (unfavorable prognostic indicator). Positive for overexpression of ZGV2idv. B. Right breast 2 o clock, biopsy: [...] ductal carcinoma (no special type) Histologic Grade (Oakwood grade): Glandular/tubular differentiation - score 3 Nuclear [...] - previously performed on section of tumor ([id number] / [id number]). ER positive (15%, weak intensity) MS negative (0%) Her2 krista positive (3+) Microcalcifications present in both invasive carcinoma and non-neoplastic tissue. Clinical history - Please make reference to previous specimen ([id number]) right breast at 1 o clock and [...] 1.00 - 4.00 k/uL 1.55 1.26 1.22 [place]% % 7.1 11.1 11.4 Abs [place] <0.87 k/uL 0.37 0.44 0.43 Eosin% % [...] pN0(sln) MX ER positive (9%, very weak) MS negative HER overexpressed stage IIA invasive ductal carcinoma the right breast. -Recurrent pT2(m) pN0 (none of 5 LNs) MX ER +(15%, weak intensity)/MS negative (0%) HER2 3+ invasive ductal carcinoma [...] months. - ECHO due end of January-at [facility]. - CT's early first week of [...] visit. Caity Cote APRN.ALESSANDRO documented in this encounterCrystal Clinic Orthopedic Center06-29-2022 History of Present illness Narrative* Rip Rivers, - 12/02/2021 11:47 AM EDT Diagnosis: 1) Metastatic recurrence of ER positive, MS negative, HER2 positive breast cancer. 2) Cardiomyopathy. HPI: The patient is a 66 year old female who discovered a lump on the lower inner portion of her right breast in the fall of 2015. She was seen at [facility] and underwent a right sided core biopsy on 02/16/2016 by interventional radiology. The tissue specimen demonstrated invasive ductal carcinoma, Yohan grade 2. ERpositive (90%, very weak) and MS negative (0%). HER-2 was quantified at 3+. [...] positive, >90% Ki-67 (30-9) positive, 12% CK8 (13apxzM03) positive CK5-6 (D5 & 1684) negative Calponin-1 (FG544E) negative P40 (BC28) negative E-Cad (ECH-6) positive MORPHOMETRIC ANALYSIS ER (clone 6F11) 15%, weak intensity MS (clone 16/1E2) 0% Her-2Neu (clone CB11) 3+ Block B Calponin-1 (HP999Y) negative P40 (BC28) negative CK8 (64flraF44) positive INTERPRETATION: A. Right breast 1 o clock, biopsy: Invasive ductal carcinoma, grade 3/3. Positive for estrogen receptors (favorable prognostic indicator). Negative for progesterone receptors (unfavorable prognostic indicator). Positive for overexpression of NOJ6lct. B. Right breast 2 o clock, biopsy: [...] ductal carcinoma (no special type) Histologic Grade (Oakwood grade): Glandular/tubular differentiation - score 3 Nuclear [...] - previously performed on section of tumor ([id number] / [id number]). ER positive (15%, weak intensity) MS negative (0%) Her2 krista positive (3+) Microcalcifications present in both invasive carcinoma and non-neoplastic tissue. Clinical history - Please make reference to previous specimen ([id number]) right breast at 1 o clock and [...] Resolution of subcutaneous metastasis near Xyvoid. NEUROLOGIC: automatic embroidery machine tender II-XII are grossly intact. Absent patellar DTRs. ASSESSMENT/PLAN: (C50.311, Z17.0) Malignant neoplasm of lower-inner quadrant of right breast of female, estrogen receptor positive (HCC) (primary encounter diagnosis) Assessment: -Originally pT2 pN0(sln) MX ER positive (9%, very weak) MS negative HER overexpressed stage IIA invasive ductal carcinoma the right breast. -Recurrent pT2(m) pN0 (none of 5 LNs) MX ER +(15%, weak intensity)/MS negative (0%) HER2 3+ invasive ductal carcinoma [...] care. Rip Rivers DO documented in this encounterCrystal Clinic Orthopedic Center06-29-2022 History of Present illness Narrative* Nicolle Funez RN - 12/02/2021 7:35 AM EDT Patient is here for IVAD port flush/blood draw per [facility] [place] protocol. IVAD is located in right upper [...] Patient tolerated procedure well. documented in this encounterCrystal Clinic Orthopedic Center06-08-2022 History of Present illness Narrative* Rip Rivers DO - 11/11/2021 10:34 AM EDT Diagnosis: 1) Metastatic recurrence of ER positive, MS negative, HER2 positive breast cancer. 2) Cardiomyopathy. HPI: The patient is a 66 year old female who discovered a lump on the lower inner portion of her right breast in the fall of 2015. She was seen at [facility] and underwent a right sided core biopsy on 02/16/2016 by interventional radiology. The tissue specimen demonstrated invasive ductal carcinoma, Yohan grade 2. ERpositive (90%, very weak) and MS negative (0%). HER-2 was quantified at 3+. [...] positive, >90% Ki-67 (30-9) positive, 12% CK8 (97cpqaX82) positive CK5-6 (D5 & 1684) negative Calponin-1 (JE018Q) negative P40 (BC28) negative E-Cad (ECH-6) positive MORPHOMETRIC ANALYSIS ER (clone 6F11) 15%, weak intensity MS (clone 16/1E2) 0% Her-2Neu (clone CB11) 3+ Block B Calponin-1 (UM619W) negative P40 (BC28) negative CK8 (69xucxO05) positive INTERPRETATION: A. Right breast 1 o clock, biopsy: Invasive ductal carcinoma, grade 3/3. Positive for estrogen receptors (favorable prognostic indicator). Negative for progesterone receptors (unfavorable prognostic indicator). Positive for overexpression of JPU0ecq. B. Right breast 2 o clock, biopsy: [...] - previously performed on section of tumor ([id number] / [id number]). ER positive (15%, weak intensity) MS negative (0%) Her2 krista positive (3+) Microcalcifications present in both invasive carcinoma and non-neoplastic tissue. Clinical history - Please make reference to previous specimen ([id number]) right breast at 1 o clock and [...] (98.1 F), weight 83.5 kg (184 lb), WpI498 %. Well-appearing and in no acute distress. EYES: Sclerae are anicteric bilaterally. LYMPHATIC: There is no palpable cervical, supraclavicular, axillary adenopathy. RESPIRATORY: Inspiratory breath sounds are of normal intensity in all barnes. No rales, wheezes or rhonchi. CARDIOVASCULAR: Rhythm is regular. ABDOMEN: The abdomen is nondistended. Extremities: No swelling or edema. SKIN: Resolution of subcutaneous metastasis near Xyvoid. NEUROLOGIC: automatic embroidery machine tender II-XII are grossly intact. Absent patellar DTRs. ASSESSMENT/PLAN: (C50.311, Z17.0) Malignant neoplasm of lower-inner quadrant of right breast of female, estrogen receptor positive (HCC) (primary encounter diagnosis) Assessment: -Originally pT2 pN0(sln) MX ER positive (9%, very weak) MS negative HER overexpressed stage IIA invasive ductal carcinoma the right breast. -Recurrent pT2(m) pN0 (none of 5 LNs) MX ER +(15%, weak intensity)/MS negative (0%) HER2 3+ invasive ductal carcinoma [...] care. Rip Rivers DO documented in this encounterCrystal Clinic Orthopedic Center06-03-2022 History of Present illness Narrative* RT Rima(R) [...] PERIPHERAL IV DATA: power port accessed by [employer] SIGNED BY: RT Ashley(R) November 06, 2021 3:14 PM documented in this encounterCleveland [id number] History of Present illness Narrative* Rosemary Romero RN - 10/22/2021 9:50 AM EDT Assessment unchanged from office visit with Mary Cote on 10/21/21 documented in this encounterCrystal Clinic Orthopedic Center05-18-2022 Miscellaneous Notes* Telephone Encounter - Emma Scott Pss - 10/21/2021 10:16 AM EDT Echo order faxed to [facility]. documented in this encounterCrystal Clinic Orthopedic Center05-18-2022 History of Present illness Narrative* Caity Cote APRN.OLIVING MACHINE OPERATOR - 10/21/2021 9:17 AM EDT Chief Complaint Patient presents with: Established Patient HPI: Renate Christiansen is a 66 year old female who presents here today for evaluation for treatment tomorrow. Per Dr. Rivers's previous note: H/o discovered a lump on the lower inner portion of her right breast in the fall of 2015. She was seen at [facility] and underwent a right sided core biopsy on 02/16/2016 by interventional radiology. The tissue specimen demonstrated invasive ductal carcinoma, Oakwood grade 2. ERpositive (90%, very weak) and MS negative (0%). HER-2 was quantified at 3+. [...] Nerlyx-stopped d/t diarrhea. Last dose of neratinib Feb. 19. I'm never taking that again. Seen here [...] positive, >90% Ki-67 (30-9) positive, 12% CK8 (99dvpaD69) positive CK5-6 (D5 & 1684) negative Calponin-1 (XY644D) negative P40 (BC28) negative E-Cad (ECH-6) positive MORPHOMETRIC ANALYSIS ER (clone 6F11) 15%, weak intensity MS (clone 16/1E2) 0% Her-2Neu (clone CB11) 3+ Block B Calponin-1 (JX368H) negative P40 (BC28) negative CK8 (75xpscO57) positive INTERPRETATION: A. Right breast 1 o clock, biopsy: Invasive ductal carcinoma, grade 3/3. Positive for estrogen receptors (favorable prognostic indicator). Negative for progesterone receptors (unfavorable prognostic indicator). Positive for overexpression of CJX4bom. B. Right breast 2 o clock, biopsy: [...] ductal carcinoma (no special type) Histologic Grade (Oakwood grade): Glandular/tubular differentiation - score 3 Nuclear [...] - previously performed on section of tumor ([id number] / [id number]). ER positive (15%, weak intensity) MS negative (0%) Her2 krista positive (3+) Microcalcifications present in both invasive carcinoma and non-neoplastic tissue. Clinical history - Please make reference to previous specimen ([id number]) right breast at 1 o clock and [...] - 4.00 k/uL 1.29 1.29 1.14 1.42 [place]% % 9.9 9.6 8.2 9.5 Abs [place] <0.87 k/uL 0.57 0.46 0.55 0.45 Eosin% [...] pN0(sln) MX ER positive (9%, very weak) MS negative HER overexpressed stage IIA invasive ductal carcinoma the right breast. -Recurrent pT2(m) pN0 (none of 5 LNs) MX ER +(15%, weak intensity)/MS negative (0%) HER2 3+ invasive ductal carcinoma [...] every 3 cycles. Pt. has this done [facility]. - Continue zometa every 3 months. [...] as necessary for today's visit. Caity Cote APRN.OLIVING MACHINE OPERATOR documented in this encounterCrystal Clinic Orthopedic Center04-28-2022 History of Present illness Narrative* Rosemary Romero RN - 10/01/2021 8:59 AM EDT Assessment unchanged from Dr rivers office visit documented in this encounterCrystal Clinic Orthopedic Center04-27-2022 History of Present illness Narrative* Rip Rivers, DO - 09/30/2021 10:26 AM EDT Diagnosis: 1) Metastatic recurrence of ER positive, MS negative, HER2 positive breast cancer. 2) Cardiomyopathy. HPI: The patient is a 65 year old female who discovered a lump on the lower inner portion of her right breast in the fall of 2015. She was seen at [facility] and underwent a right sided core biopsy on 02/16/2016 by interventional radiology. The tissue specimen demonstrated invasive ductal carcinoma, Oakwood grade 2. ERpositive (90%, very weak) and MS negative (0%). HER-2 was quantified at 3+. [...] positive, >90% Ki-67 (30-9) positive, 12% CK8 (60hmkaA94) positive CK5-6 (D5 & 1684) negative Calponin-1 (KS248Q) negative P40 (BC28) negative E-Cad (ECH-6) positive MORPHOMETRIC ANALYSIS ER (clone 6F11) 15%, weak intensity MS (clone 16/1E2) 0% Her-2Neu (clone CB11) 3+ Block B Calponin-1 (UU446N) negative P40 (BC28) negative CK8 (49gzkiU85) positive INTERPRETATION: A. Right breast 1 o clock, biopsy: Invasive ductal carcinoma, grade 3/3. Positive for estrogen receptors (favorable prognostic indicator). Negative for progesterone receptors (unfavorable prognostic indicator). Positive for overexpression of UCE0gru. B. Right breast 2 o clock, biopsy: [...] - previously performed on section of tumor ([id number] / [id number]). ER positive (15%, weak intensity) MS negative (0%) Her2 krista positive (3+) Microcalcifications present in both invasive carcinoma and non-neoplastic tissue. Clinical history - Please make reference to previous specimen ([id number]) right breast at 1 o clock and [...] resolution of subcutaneous metastasis near Xyvoid. NEUROLOGIC: automatic embroidery machine tender II-XII are grossly intact. Absent patellar DTRs. ASSESSMENT/PLAN: (C50.311, Z17.0) Malignant neoplasm of lower-inner quadrant of right breast of female, estrogen receptor positive (HCC) (primary encounter diagnosis) Assessment: -Originally pT2 pN0(sln) MX ER positive (9%, very weak) MS negative HER overexpressed stage IIA invasive ductal carcinoma the right breast. -Recurrent pT2(m) pN0 (none of 5 LNs) MX ER +(15%, weak intensity)/MS negative (0%) HER2 3+ invasive ductal carcinoma [...] care. Rip Rivers DO documented in this encounterCrystal Clinic Orthopedic Center04-08-2022 Miscellaneous Notes* Telephone Encounter - Carla Almonte [...] patient. Carla Almonte RN documented in this encounterCrystal Clinic Orthopedic Center04-06-2022 History of Present illness Narrative* Cris Ashby [...] Dosing Weight: 86.6 kg Estimated kilocalorie needs: 5976-7149 kilocalories determined by 25-30 kcal/kg Estimated protein [...] Ciprocinonide, Codeine, Demerol [Meperidine (Pf)], Erythromycin, Latex, [place] [Hydrocodone- Acetaminophen], Nubain [Nalbuphine Hcl], Percocet [Oxycodone-Acetaminophen], Prednisone, Ama, and Sulfa (Sulfonamide Antibiotics) Medications: Current Outpatient [...] POSIFLUSH) 10 mL INTRAVENOUS DIRECTED PRN Caity Cote, PULLEY WORKER.OLIVING MACHINE OPERATOR perflutren lipid microspheres 1.3 mL in NaCl (PF) 0.9% 10 mL injection (DEFINITY) INTRAVENOUS DIRECTED PRN Caity Maryenter, PULLEY WORKER.ALESSANDRO sodium chloride 0.9 % (flush) 10 mL (BD POSIFLUSH) 10 mL INTRAVENOUS DIRECTED SHIRA Cote APRN.CNP perflutren lipid microspheres 1.3 mL in NaCl (PF) 0.9% 10 mL injection (DEFINITY) INTRAVENOUS DIRECTED SHIRA Cote APRN.CNP sodium chloride 0.9 % (flush) 10 mL (BD POSIFLUSH) 10 mL INTRAVENOUS DIRECTED PRLulú Cote APRN.OLIVING MACHINE OPERATOR (date of last encounter ): Nutrition Monitoring [...] min 3 units Signed by: Cris Ashby RD,LD documented in this encounterCrystal Clinic Orthopedic Center04-05-2022 Miscellaneous Notes* Telephone Encounter - DIO Leach - 09/08/2021 11:58 AM EDT SOCIAL WORK FOLLOW UP NOTE: [facility] Date of service: September 08, 2021 Renate Christiansen is being seen for a follow up social work visit. Today's visit includes: patient and Rx Outreach TOPICS ADDRESSED: Finances; Lyrica [facility] for 60 capsules, which would cost [...] F/U APPOINTMENT: PRDIO Schmidt documented in this encounterCrystal Clinic Orthopedic Center04-04-2022 History of Present illness Narrative* DIO Leach [...] follow up as needed F/U APPOINTMENT: PRN DIO Leach documented in this encounterCrystal Clinic Orthopedic Center04-04-2022 History of Present illness Narrative* Jazmin Jacobsen [...] 07, 2021 10:42 AM documented in this encounterCrystal Clinic Orthopedic Center04-01-2022 Miscellaneous Notes* Telephone Encounter - Kayla Elliott - 09/04/2021 3:58 PM EDT Rec'd email from department. Spoke with patient today. Patient is active with Medicare A and B as well as [facility] AARP Supplement and is not expected to have any financial responsibility for treatment inHEMA WSTR. There are no open foundations for dx. Patient stated understanding and advised that she does not need any assistance. documented in this encounterCrystal Clinic Orthopedic Center04-01-2022 Nurse Note* Carla Almonte RN - 09/04/2021 [...] RESPONSE DIAGNOSIS: Metastatic recurrence of ER positive, MS negative, HER2 positive breast cancer METHOD OF [...] Work Carla Almonte RN documented in this encounterCrystal Clinic Orthopedic Center03-31-2022 Miscellaneous Notes* Telephone Encounter - Emma Scott Pss - 09/03/2021 12:26 PM EDT Schedule updated. * Telephone Encounter - Carla Almonte RN - 09/03/2021 10:06 AM EDT Patient informed of Dr. Rivers's response, stated understanding. Patient stated to have schedulers add appointment and she will check for treatment date/time. See Dr. Rivers's note, okay to cancel tomorrows treatment and delay a week. Patient also requesting a mining plant operator appointment. Please schedule on 09/09/21 at 11:00 [...] week. Carla Almonte RN documented in this encounterCrystal Clinic Orthopedic Center03-31-2022 Miscellaneous Notes* Telephone Encounter - DIO Leach - 09/03/2021 9:15 AM EDT PSYCHOSOCIAL ASSESSMENT Date of Service: September 03, 2021 Renate Christiansen is a 65 year old female being seen for initial social work assessment. Diagnosis: metastatic breast Recurrence Primary Oncologist: Dr. Rivers Radiation Oncologist: DREW Goals of Care: Palliative care Today's visit includes: self/patient Family History of Cancer: Other SUPPORT NETWORK: Marital status: Parent(s): Mother is and Father is living Child/Children: Yes. How many? 2 children customer care representative arrangements needed: No Siblings: 4 sister(s) and 3 brother(s); 1 sister passed Grandchild(giuseppe): > 5 Home Health Provider: No Community Services: No Ruby Identified: Yes Gnosticism/Spirituality: Latter Day Are these practices or beliefs that may affect or influence treatment? No EMPLOYMENT/FINANCIAL/HEALTH INSURANCE: Employment: Retired Income source: Social Security Insurance: Medicare with co-insurance Prescription coverage: Yes Is the patient appropriate for [facility] to [facility] COBRA Assistance program? No Financial Distress: No [place]: No FOOD INSECURITY Within the past year, [...] EPIC: Yes Health Care Durable Power of Dog Track Kennel Manager: Yes Scanned into EPIC: Yes Guardianship: NA [...] NA Practical Needs: N/A PLAN: Follow-up regarding Lyrica assistance Follow up appointment with SW in: DIO Velasco documented in this encounterCrystal Clinic Orthopedic Center03-30-2022 Miscellaneous Notes* Telephone Encounter - Carla Almonte RN - 09/02/2021 3:43 PM EDT Thank you. * Telephone Encounter - Emma Scott Pss - 09/02/2021 3:29 PM EDT [...] patient. Carla Almonte RN documented in this encounterCrystal Clinic Orthopedic Center03-30-2022 History of Present illness Narrative* Rip Rivers, - 09/02/2021 10:14 AM EDT Diagnosis: 1) Metastatic recurrence of ER positive, MS negative, HER2 positive breast cancer. 2) Cardiomyopathy. HPI: The patient is a 65 year old female who discovered a lump on the lower inner portion of her right breast in the fall of 2015. She was seen at [facility] and underwent a right sided core biopsy on 02/16/2016 by interventional radiology. The tissue specimen demonstrated invasive ductal carcinoma, Yohan grade 2. ERpositive (90%, very weak) and MS negative (0%). HER-2 was quantified at 3+. [...] positive, >90% Ki-67 (30-9) positive, 12% CK8 ([id number]) positive CK5-6 (D5 & 1684) negative Calponin-1 (QE553Q) negative P40 (BC28) negative E-Cad (ECH-6) positive MORPHOMETRIC ANALYSIS ER (clone 6F11) 15%, weak intensity MS (clone 16/1E2) 0% Her-2Neu (clone CB11) 3+ Block B Calponin-1 (YL798M) negative P40 (BC28) negative CK8 (26fmebQ79) positive INTERPRETATION: A. Right breast 1 o clock, biopsy: Invasive ductal carcinoma, grade 3/3. Positive for estrogen receptors (favorable prognostic indicator). Negative for progesterone receptors (unfavorable prognostic indicator). Positive for overexpression of ZIZ9inf. B. Right breast 2 o clock, biopsy: [...] - previously performed on section of tumor ([id number] / [id number]). ER positive (15%, weak intensity) MS negative (0%) Her2 krista positive (3+) Microcalcifications present in both invasive carcinoma and non-neoplastic tissue. Clinical history - Please make reference to previous specimen ([id number]) right breast at 1 o clock and [...] (98.4 F), weight 86.6 kg (191 lb), CxW053 %. Well-appearing and in no acute distress. EYES: Sclerae are anicteric bilaterally. LYMPHATIC: There is no palpable cervical, supraclavicular, axillary adenopathy. RESPIRATORY: Inspiratory breath sounds are of normal intensity in all barnes. No rales, wheezes or rhonchi. Expiratory phase is normal. CARDIOVASCULAR: Rhythm is regular. ABDOMEN: The abdomen is nondistended. Extremities: No swelling or edema. SKIN: No jaundice or rash. No petechiae. NEUROLOGIC: automatic embroidery machine tender II-XII are grossly intact. Absent patellar DTRs. MUSCULOSKELETAL: Palpable chest wall nodule just to the right of lower sternum is stable. ASSESSMENT/PLAN: (C50.311, Z17.0) Malignant neoplasm of lower-inner quadrant of right breast of female, estrogen receptor positive (HCC) (primary encounter diagnosis) Assessment: -Originally pT2 pN0(sln) MX ER positive (9%, very weak) MS negative HER overexpressed stage IIA invasive ductal carcinoma the right breast. -Recurrent pT2(m) pN0 (none of 5 LNs) MX ER +(15%, weak intensity)/MS negative (0%) HER2 3+ invasive ductal carcinoma [...] and test results and coordinating care. Rip A Masci, DO [facility] History of Present illness Narrative* RT Fannie(R) - 08/25/2021 9:30 AM EDT RADIOLOGY SERVICE [...] 823 PATIENT DISCHARGED TO: Ambulatory patient, left [place] department area. A Diagnostic radioactive procedure has taken place, with no further precautions necessary other than routine body substance precautions. More information regarding radiation safety can be found usingthis link: [email or web address] SIGNATURE: Shae Damon RT(R) PATIENT NAME: Renate Christiansen DATE: August 25, 2021 TIME: 8:35 AM PAGER/CONTACT #: [facility] Diagnosis Malignant neoplasm of lower-inner quadrant of right breast of female, estrogen receptor positive (HCC) Bone metastases (HCC) Secondary malignant neoplasm of bone and bone marrow [facility] Diagnosis Malignant neoplasm of lower-inner quadrant of right breast of female, estrogen receptor positive (HCC)- Primary Malignant neoplasm metastatic to both lungs (HCC) Skin, 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 Thyroid nodule Nontoxic uninodular goiter [facility] Diagnosis Malignant neoplasm of lower-inner quadrant of right breast of female, estrogen receptor positive (HCC) Malignant neoplasm metastatic to lung, unspecified laterality (HCC) [facility] Diagnosis Malignant neoplasm of lower-inner quadrant of right breast of female, estrogen receptor positive (HCC)- Primary Malignant neoplasm metastatic to both lungs (HCC) [facility] Diagnosis Malignant neoplasm of lower-inner quadrant of right female breast, unspecified estrogen receptor status (HCC)- Primary [facility] Diagnosis Thyroid nodule Nontoxic uninodular goiter [facility] Diagnosis Malignant neoplasm of lower-inner quadrant of right breast of female, estrogen receptor positive (HCC) Malignant neoplasm metastatic to both lungs (HCC) [facility] Diagnosis Malignant neoplasm metastatic to [...] Onset Date Resolution Status Non-ischemic cardiomyopathy resolved [facility] Work Phone: Evaluation note* Diagnosis Malignant neoplasm metastatic to lung, unspecified laterality (HCC) Bone metastases (HCC) Secondary malignant neoplasm of bone and bone marrow Malignant neoplasm of lower-inner quadrant of right breast of female, estrogen receptor positive (HCC) [facility] Diagnosis Malignant neoplasm of lower-inner [...] receptor positive (HCC) [facility] Diagnosis Malignant neoplasm metastatic to lung, unspecified laterality (HCC)- Primary [facility]* Diagnosis Onset Date Resolution Status Breast cancer, right breast chronic [facility] Work Phone: Evaluation note* Diagnosis Malignant neoplasm metastatic to lung, unspecified laterality (HCC)- Primary Bone metastases (HCC) Secondary malignant neoplasm of bone and bone marrow Malignant neoplasm of lower-inner quadrant of right breast of female, estrogen receptor positive (HCC) Chemotherapy induced diarrhea Diarrhea [facility]* Diagnosis Malignant neoplasm of lower-inner quadrant of right breast of female, estrogen receptor positive (HCC)- Primary Bone metastases (HCC) 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, 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 Malignant neoplasm metastatic to both lungs (HCC) [facility]* Diagnosis Bone metastases (HCC)- Primary Secondary malignant neoplasm of bone and bone marrow Malignant neoplasm metastatic to lung, unspecified laterality (HCC) Malignant neoplasm of lower-inner quadrant of right breast of female, estrogen receptor positive (HCC) [facility] Diagnosis Malignant neoplasm of lower-inner quadrant of right breast of female, estrogen receptor positive (HCC)- Primary Bone metastases (HCC) 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, 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 Malignant neoplasm metastatic to both lungs (HCC) Encounter for monitoring cardiotoxic drug therapy Encounter for therapeutic drug monitoring [facility] Diagnosis Skin, 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)- Primary Secondary malignant neoplasm of skin Bone metastases (HCC) Secondary malignant neoplasm of bone and bone marrow Malignant neoplasm metastatic to lung, unspecified laterality (HCC) Malignant neoplasm of lower-inner quadrant of right breast of female, estrogen receptor positive (HCC) [facility] Diagnosis Skin, 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)- [...] due to drugs [facility] Diagnosis Malignant neoplasm metastatic to bone (HCC)- Primary Secondary malignant neoplasm of bone and bone marrow Malignant neoplasm metastatic to lung, unspecified laterality (HCC) Malignant neoplasm of lower-inner quadrant of right breast of female, estrogen receptor positive (HCC) Chemotherapy induced diarrhea Diarrhea [facility]* Diagnosis Malignant neoplasm of lower-inner quadrant of right breast of female, estrogen receptor positive (HCC) Malignant neoplasm metastatic to bone (HCC) Secondary malignant neoplasm of bone and bone marrow Malignant neoplasm metastatic to lung, unspecified laterality (HCC) 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, unspecified [facility]* Diagnosis Onset Date Resolution Status Non-ischemic cardiomyopathy acute Breast cancer, right breast chronic [facility] Work Phone: Evaluation note* Diagnosis Malignant neoplasm metastatic to left lung (HCC)- Primary [facility] encounter [facility]* Diagnosis Malignant neoplasm metastatic to left lung (HCC)- Primary [facility] Diagnosis Onset Date Resolution Status Non-ischemic cardiomyopathy acute Breast cancer, right breast chronic Acute dyspnea acute Breast cancer metastasized to lung acute Elevated d-dimer acute [facility] Work Phone: Evaluation note* Diagnosis Malignant neoplasm metastatic to bone (HCC)- Primary Secondary malignant neoplasm of bone and bone marrow [facility] this encounter [facility]* Diagnosis Malignant neoplasm metastatic to left lung (HCC)- Primary [facility]* Diagnosis Malignant neoplasm of lower-inner quadrant of right breast of female, estrogen receptor positive (HCC) Malignant neoplasm metastatic to bone (HCC) Secondary malignant neoplasm of bone and bone marrow Malignant neoplasm metastatic to lung, unspecified laterality (HCC) 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, unspecified [facility] encounter [facility]* Diagnosis Malignant neoplasm metastatic to bone [...] Secondary cardiomyopathy, unspecified [facility] Diagnosis Malignant neoplasm of lower-inner quadrant of right breast of female, estrogen receptor positive (HCC)- Primary Malignant neoplasm metastatic to both lungs (HCC) Encounter for monitoring cardiotoxic drug therapy Encounter for therapeutic drug monitoring Malignant neoplasm metastatic to bone (HCC) 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, unspecified [facility] Diagnosis Malignant neoplasm metastatic to bone (HCC)- Primary Secondary malignant neoplasm of bone and bone marrow Malignant neoplasm metastatic to lung, unspecified laterality (HCC) Malignant neoplasm of lower-inner quadrant of right breast of female, estrogen receptor positive (HCC) [facility] Diagnosis Onset Date Resolution Status Acute dyspnea acute Non-ischemic cardiomyopathy acute Breast cancer, right breast chronic [facility] Work Phone: Evaluation note* Diagnosis Malignant neoplasm of lower-inner quadrant of right breast of female, estrogen receptor positive (HCC) (HCC) Malignant neoplasm metastatic to bone (HCC) Secondary malignant neoplasm of bone and bone marrow Malignant neoplasm metastatic to lung, unspecified laterality (HCC) Chemotherapy-induced cardiomyopathy (HCC) (HCC) Secondary cardiomyopathy, unspecified [facility] Diagnosis Malignant neoplasm of lower-inner quadrant of right breast of female, estrogen receptor positive (HCC) (HCC)- Primary Malignant neoplasm metastatic to both lungs (HCC) Malignant neoplasm metastatic to bone (HCC) Secondary malignant neoplasm of bone and bone marrow [facility] Diagnosis Malignant neoplasm metastatic to bone (HCC)- Primary Secondary malignant neoplasm of bone and bone marrow Malignant neoplasm metastatic to lung, unspecified laterality (HCC) Malignant neoplasm of lower-inner quadrant of right breast of female, estrogen receptor positive (HCC) (HCC) [facility] Diagnosis Malignant neoplasm metastatic to left lung (HCC) documented [facility] Diagnosis Malignant neoplasm of lower-inner quadrant [...] left lung (HCC) [facility] [...] [facility] Diagnosis Malignant neoplasm of prostate (HCC)- Primary Malignant neoplasm of prostate Malignant neoplasm of lower-inner quadrant of right breast of female, estrogen receptor positive (HCC) Malignant neoplasm metastatic to lung, unspecified laterality (HCC) Malignant neoplasm metastatic to bone (HCC) 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) [facility] Diagnosis Malignant neoplasm of lower-inner quadrant [...] therapeutic drug monitoring [facility] encounter [facility]* Diagnosis Malignant neoplasm metastatic to both lungs (CMS/HCC)- Primary Malignant neoplasm metastatic to bone (CMS/HCC) 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) Platelets decreased (CMS/HCC) Unspecified thrombocytopenia Primary hypertension Unspecified essential hypertension Heart disease Unspecified heart disease documented in this encounter [facility] Work Phone: Evaluation note* Diagnosis Malignant neoplasm metastatic to bone (HCC)- Primary Secondary malignant neoplasm of bone and bone marrow Malignant neoplasm of lower-inner quadrant of right breast of female, estrogen receptor positive (HCC) Malignant neoplasm metastatic to lung, unspecified laterality (HCC) HER2-positive carcinoma of breast (HCC) [facility]* Diagnosis Malignant neoplasm of lower-inner quadrant of right breast of female, estrogen receptor positive (HCC)- Primary [facility] Diagnosis Malignant neoplasm of lower-inner quadrant of right breast of female, estrogen receptor positive (HCC) Malignant neoplasm metastatic to lung, unspecified laterality (HCC) Malignant neoplasm metastatic to bone (HCC) 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, 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 [facility] Diagnosis Malignant neoplasm of lower-inner quadrant of right breast of female, estrogen receptor positive (HCC)- Primary Malignant neoplasm metastatic to lung, unspecified laterality (HCC) Malignant neoplasm metastatic to bone (HCC) 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, 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 [facility] Diagnosis Malignant neoplasm of lower-inner quadrant of right breast of female, estrogen receptor positive (HCC)- Primary Malignant neoplasm metastatic to lung, unspecified laterality (HCC) Malignant neoplasm metastatic to bone (HCC) 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, 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 [facility] Diagnosis Malignant neoplasm metastatic to bone (HCC)- Primary Secondary malignant neoplasm of bone and bone marrow [facility] Diagnosis Malignant neoplasm of lower-inner [...] both lungs (HCC) [facility] Diagnosis Malignant neoplasm of lower-inner [...] and immunity disorders [facility] Diagnosis Malignant neoplasm of lower-inner [...] positive (HCC)- Primary [facility]* Diagnosis Malignant neoplasm of lower-inner quadrant of right breast of female, estrogen receptor positive (HCC)- Primary Malignant neoplasm metastatic to lung, unspecified laterality (HCC) Malignant neoplasm metastatic to bone (HCC) 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) Malignant neoplasm metastatic to both lungs (HCC) [facility] Diagnosis History of thyroid nodule Personal history of other endocrine, metabolic, and immunity disorders documented [facility] this encounter [facility]* Diagnosis Malignant neoplasm of lower-inner quadrant of right breast of female, estrogen receptor positive (HCC) Malignant neoplasm metastatic to bone (HCC) Secondary malignant neoplasm of bone and bone marrow Malignant neoplasm metastatic to both lungs (HCC) documented [facility] encounter [facility]* Diagnosis Malignant neoplasm of lower-inner quadrant of right breast of female, estrogen receptor positive (HCC) Malignant neoplasm metastatic to lung, unspecified laterality (HCC) Malignant neoplasm metastatic to bone (HCC) 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) Malignant neoplasm metastatic to both lungs (HCC) documented [facility] encounter [facility]* Diagnosis Malignant neoplasm of lower-inner quadrant of right breast of female, estrogen receptor positive (HCC)- Primary Malignant neoplasm metastatic to bone (HCC) 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 documented [facility] encounter [facility]* Diagnosis Malignant neoplasm of lower-inner quadrant of right breast of female, estrogen receptor positive (HCC)- Primary Malignant neoplasm metastatic to lung, unspecified laterality (HCC) Malignant neoplasm metastatic to bone (HCC) 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) documented in this encounter [facility] noteNo assessment information availableWCleveland Clinic Work Phone: Evaluation note* Diagnosis Routine general medical examination at health care facility- Primary Routine general medical examination at a health care facility Malignant neoplasm metastatic to both lungs Bronchitis Bronchitis, not specified as acute or chronic History of right breast cancer Heart disease Unspecified heart disease documented in this encounter [facility] Work Phone: Evaluation note* Diagnosis Malignant [...] (HCC) 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, 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 Drug rash Dermatitis due to drugs and medicines taken internally History of thyroid nodule Personal history of other endocrine, metabolic, and immunity disorders [facility] Diagnosis Malignant neoplasm metastatic to bone (HCC)- Primary 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) Malignant neoplasm of lower-inner quadrant of [...] malignant neoplasm of bone and bone marrow 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) [facility] Diagnosis Malignant neoplasm metastatic to bone (HCC) 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) Malignant neoplasm metastatic to lung, unspecified laterality (HCC) [facility] Diagnosis Secondary malignant neoplasm of right lung (HCC)- Primary Secondary malignant neoplasm of lung documented in this encounter [facility]* Diagnosis Malignant neoplasm metastatic to left lung (HCC)- Primary Secondary malignant neoplasm of right lung (HCC) Secondary malignant neoplasm of lung documented in this encounter [facility]* Diagnosis Malignant neoplasm of lower-inner quadrant of right breast of female, estrogen receptor positive (HCC) HER2-positive carcinoma of breast (HCC) Malignant neoplasm metastatic to bone (HCC) Secondary malignant neoplasm of bone and bone marrow [facility] Diagnosis Malignant neoplasm of lower-inner quadrant of right breast of female, estrogen receptor positive (HCC)- Primary Malignant neoplasm metastatic to bone (HCC) Secondary malignant neoplasm of bone and bone marrow Malignant neoplasm metastatic to both lungs (HCC) 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, 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 Nontoxic single thyroid nodule Nontoxic uninodular goiter documented [facility] this encounter [facility]* Diagnosis Nontoxic single thyroid nodule Nontoxic uninodular goiter documented in this encounter [facility] for referral (narrative)* Diagnostic Procedure Only (Routine) - Closed Specialty Diagnoses / Procedures Referred By Carmen t Referred To Contact MOLECULAR & FUNCTIONAL IMAGING Diagnoses Malignant neoplasm of lower-inner quadrant of right breast of female, estrogen receptor positive (HCC) Bone metastases (HCC) Procedures NM PET/CT SKULL-THIGH INITIAL PET IMAGING CT ATTENUATION SKULL BASE MID-THIGH Rip Rivers DO [address] [place] [address] Molecular & Functional Imaging [address] [place], [place] [id number] Referral ID Status Reason Start Date Expiration Date V isits Requested Visits Authorized [id number] Closed Auto-Generate d Referral 08/12/2021 09/11/2022 1 1 T [facility] for referral (narrative)* Diagnostic Procedure Only (Routine) - Authorized Specialty Diagnoses / Procedures Referred By Contac t Referred To Contact US IMAGING Diagnoses Thyroid nodule Procedures US THYROID/PARATHYROID US SOFT TISSUE HEAD & NECK REAL TIME IMGE DOCM Rip Rivers, [address] [place] [address] Us Imaging Referral ID Status Reason Start Date Expiration Date Visits Requested Visits Authorized [id number] Authorized Auto-Generat ed Referral 09/02/2021 10/02/2022 1 1 T [facility] for referral (narrative)* Diagnostic Procedure Only (Routine) - Closed Specialty Diagnoses / Procedures Referred By Contac t Referred To Contact US IMAGING Diagnoses Thyroid nodule Procedures US THYROID/PARATHYROID US SOFT TISSUE HEAD & NECK REAL TIME IMGE DOCM Rip Rivers, [address] [place] [address] Us Imaging Referral ID Status Reason Start Date Expiration Date V isits Requested Visits Authorized [id number] Closed Auto-Generate d Referral 09/02/2021 10/02/2022 1 1 [facility] for referral (narrative)* Outpatient Procedure (Routine) [...] R-T 2D W/WO M-MODE REC COMP Rip Rivers DO [address] [place] [address] [facility] [place] [address] [place] [address] Referral ID Status Reason Start Date Expiration Date Visits Requested Visits Authorized [id number] Pending Review Auto-Generat ed Referral 01/07/2022 01/07/2023 1 1 [facility] for referral (narrative)* Outpatient Procedure (Routine) - Pending Review Specialty Diagnoses / Procedures Referred By Contac t Referred To Contact [facility] Diagnoses Malignant neoplasm of lower-inner quadrant of right breast of female, estrogen receptor positive (HCC) Bone metastases (HCC) Encounter for monitoring cardiotoxic drug therapy Procedures ECHO ECHO TTHRC R-T 2D W/WOM-MODE COMPL SPEC&COLR D Caity Cote APRN.OLIVING MACHINE OPERATOR [address] [place] [address] [facility] [place] [address] [place] [address] Referral ID Status Reason Start Date Expiration Date Visits Requested Visits Authorized [id number] Pending Review Auto-Generat ed Referral 04/14/2022 04/14/2023 1 1 * MRI/CT (Routine) - Pending Review Specialty Diagnoses / Procedures Referred By Contac t Referred To Contact CT IMAGING Diagnoses Malignant neoplasm of lower-inner quadrant of right breast of female, estrogen receptor positive (HCC) Bone metastases (HCC) Procedures CT CHEST W IVCON DIAGNOSTIC COMPUTED TOMOGRAPHY THORAX W/CONTRAST Caity Cote APRN.OLIVING MACHINE OPERATOR [address] [place] [address] Ct Imaging Referral ID Status Reason Start Date Expiration Date Visits Requested Visits Authorized [id number] Pending Review Auto-Generat ed Referral 04/14/2022 05/14/2023 1 1 * MRI/CT (Routine) - Pending Review Specialty Diagnoses / Procedures Referred By Contac t Referred To Contact CT IMAGING Diagnoses Malignant neoplasm of lower-inner quadrant of right breast of female, estrogen receptor positive (HCC) Bone metastases (HCC) Procedures CT ABD/PEL W IVCON CT ABD & PELVIS W/CONTRAST Caity Cote APRN.CNP [address] [place] [address] Ct Imaging Referral ID Status Reason Start Date Expiration Date Visits Requested Visits Authorized [id number] Pending Review Auto-Generat ed Referral 04/14/2022 05/14/2023 1 1 [facility] for referral (narrative)* Outpatient Procedure (Routine) - Pending Review Specialty Diagnoses / Procedures Referred By Contac t Referred To Contact [facility] [place] Diagnoses Malignant neoplasm of lower-inner quadrant of right breast of female, estrogen receptor positive (HCC) Bone metastases (HCC) Skin, 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) Malignant neoplasm metastatic to both lungs (HCC) Encounter for monitoring cardiotoxic drug therapy Procedures ECHO ECHO TTHRC R-T 2D W/WOM-MODE COMPL SPEC&COLR D Caity Cote APRN.OLIVING MACHINE OPERATOR [address] [place] [address] [facility] [place] [address] [place] [address] Referral ID Status Reason Start Date Expiration Date Visits Requested Visits Authorized [id number] Pending Review Auto-Generat ed Referral 06/15/2022 06/15/2023 1 1 [facility] for referral (narrative)* Outpatient Procedure (Routine) - Pending Review Specialty Diagnoses / Procedures Referred By Contac t Referred To [facility] [place] Diagnoses Chemotherapy-induced cardiomyopathy (HCC) Procedures ECHO ECHO TTHRC R-T 2D W/WOM-MODE COMPL SPEC&COLR D Rip Rivers DO [address] [place] [address] [facility] [place] [address] [place] [address] Referral ID Status Reason Start Date Expiration Date Visits Requested Visits Authorized [id number] Pending Review Auto-Generat ed Referral 10/20/2022 10/20/2023 1 1 [facility] for referral (narrative)* Diagnostic Procedure Only (Routine) - Closed Specialty Diagnoses / Procedures Referred By Contac t Referred To Contact XR IMAGING Diagnoses Chronic left sacroiliac pain Procedures XR SACROILIAC JOINTS 2V AP PELVIS/FERGUESON RADIOLOGIC EXAMINATION SACROILIAC JNTS <3 VIEWS Rip Rivers, DO [address] [place] [address] Xr Imaging Referral ID Status Reason Start Date Expiration Date V isits Requested Visits Authorized [id number] Closed Auto-Generate d Referral 11/10/2022 12/10/2023 1 1 * Diagnostic Procedure Only (Routine) - Closed Specialty Diagnoses / Procedures Referred By Contac t Referred To Contact XR IMAGING Diagnoses Chronic left sacroiliac pain Procedures XR LUMBAR LIMITED 2V AP/LAT RADEX SPINE LUMBOSACRAL 2/3 VIEWS Rip Rivers DO [address] [place] [address] Xr Imaging Referral ID Status Reason Start Date Expiration Date V isits Requested Visits Authorized [id number] Closed Auto-Generate d Referral 11/10/2022 12/10/2023 1 1 [facility] for referral (narrative)* Diagnostic Procedure Only (Routine) - Authorized Specialty Diagnoses / Procedures Referred By Contac t Referred To Contact BR IMAGING Diagnoses Abnormal mammogram Procedures US BREAST LTD LT US BREAST UNI REAL TIME WITH IMAGE LIMITED Rip Rivers DO [address] [place] [address] Br Imaging [address] [place] [address] Referral ID Status Reason Start Date Expiration Date Visits Requested Visits Authorized [id number] Authorized Auto-Generat ed Referral 08/24/2022 09/23/2023 1 1 [facility] for referral (narrative)* Outpatient Procedure (Routine) - [...] R-T 2D W/WOM-MODE COMPL SPEC&COLR D Rip Rivers, DO [address] [facility] [place] [address] [facility] [place] [address] [place] [address] Referral ID Status Reason Start Date Expiration Date Visits Requested Visits Authorized [id number] Pending Review Auto-Generat ed Referral 12/22/2022 12/22/2023 1 1 * MRI/CT (Routine) - Authorized Specialty Diagnoses / Procedures Referred By Carmen moore Referred To Contact CT IMAGING Diagnoses Malignant neoplasm of lower-inner quadrant of right breast of female, estrogen receptor positive (HCC) 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) Malignant neoplasm metastatic to both lungs (HCC) Procedures CT CHEST W IVCON DIAGNOSTIC COMPUTED TOMOGRAPHY THORAX W/CONTRAST Rip Rivers DO [address] [place] [address] Ct Imaging Referral ID Status Reason Start Date Expiration Date Visits Requested Visits Authorized [id number] Authorized Auto-Generat ed Referral 12/22/2022 01/21/2024 1 1 * MRI/CT (Routine) - Authorized Specialty Diagnoses / Procedures Referred By Carmen moore Referred To Contact CT IMAGING Diagnoses Malignant neoplasm of lower-inner quadrant of right breast of female, estrogen receptor positive (HCC) 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) Malignant neoplasm metastatic to both lungs (HCC) Procedures CT ABD/PEL W IVCON CT ABD & PELVIS W/CONTRAST Rip Rivers DO [address] [facility] [place] [address] Ct Imaging Referral ID Status Reason Start Date Expiration Date Visits Requested Visits Authorized [id number] Authorized Auto-Generat ed Referral 12/22/2022 01/21/2024 1 1 [facility] for referral (narrative)* Diagnostic Procedure Only (Routine) - Closed Specialty Diagnoses / Procedures Referred By Carmen t Referred To Contact BR IMAGING Diagnoses Encounter for screening mammogram for malignant neoplasm of breast Procedures MAXIM SCREENING W OMI SCREENING DIGITAL BREAST TOMOSYNTHESIS BI SCREENING MAMMOGRAPHY BI 2-VIEW BREAST INC CAD Rip Rivers, DO [address] [place] [address] Br Imaging [address] [place] [address] Referral ID Status Reason Start Date Expiration Date V isits Requested Visits Authorized [id number] Closed Auto-Generate d Referral 07/06/2022 08/05/2023 1 1 [facility] for referral (narrative)* Diagnostic Procedure Only (Routine) - Closed Specialty Diagnoses / Procedures Referred By Carmen moore Referred To Contact US IMAGING Diagnoses Multiple thyroid nodules Procedures US THYROID/PARATHYROID US SOFT TISSUE HEAD & NECK REAL TIME IMGE DOCM Rip Rivers, DO [address] [place] [address] [place] [address] Referral ID Status Reason Start Date Expiration Date V isits Requested Visits Authorized [id number] Closed Auto-Generate d Referral 03/16/2023 04/14/2024 1 1 T [facility] for referral (narrative)* Diagnostic Procedure Only (Routine) - Closed Specialty Diagnoses / Procedures Referred By Carmen moore Referred To Contact XR IMAGING Diagnoses Chronic left sacroiliac pain Procedures XR SACROILIAC JOINTS 2V AP PELVIS/FERGUESON RADIOLOGIC EXAMINATION SACROILIAC JNTS <3 VIEWS Rip Rivers, DO [address] [place] [address] [place] [address] Referral ID Status Reason Start Date Expiration Date V isits Requested Visits Authorized [id number] Closed Auto-Generate d Referral 11/10/2022 12/10/2023 1 1 * Diagnostic Procedure Only (Routine) - Closed Specialty Diagnoses / Procedures Referred By Contac t Referred To Contact XR IMAGING Diagnoses Chronic left sacroiliac pain Procedures XR LUMBAR LIMITED 2V AP/LAT RADEX SPINE LUMBOSACRAL 2/3 VIEWS Rip Rivers, DO [address] [facility] [place] [address] [place] [address] Referral ID Status Reason Start Date Expiration Date V isits Requested Visits Authorized [id number] Closed Auto-Generate d Referral 11/10/2022 12/10/2023 1 1 [facility] for referral (narrative)* Outpatient Procedure (Routine) - Pending Review Specialty Diagnoses / Procedures Referred By Contac t Referred To Contact [facility] Diagnoses Malignant neoplasm metastatic to both lungs (HCC) Encounter for monitoring cardiotoxic drug therapy Procedures ECHO ECHO TTHRC R-T 2D W/WOM-MODE COMPL SPEC&COLR D Rip Rivers DO [address] [facility] [place] [place] [address] [facility] [place] [address] [place] [address] Referral ID Status Reason Start Date Expiration Date Visits Requested Visits Authorized [id number] Pending Review Auto-Generat ed Referral 3 04/25/2024 1 1 [facility] for referral (narrative)* Diagnostic Procedure Only (Routine) [...] MID-THIGH Rip Rivers DO [address] [place] [address] [facility] [address] [place] [address] Referral ID Status Reason Start Date Expiration Date Visits Requested Visits Authorized [id number] Authorized Auto-Generat ed Referral 08/10/2023 09/08/2024 1 1 [facility] for referral (narrative)* Diagnostic Procedure Only (Routine) - Authorized Specialty Diagnoses / Procedures Referred By Carmen moore Referred To Contact US IMAGING Diagnoses RUQ pain Procedures US ABD RIGHT UPPER QUADRANT US ABDOMINAL REAL TIME W/IMAGE LIMITED Rip Rivers DO [address] [facility] [place] [address] Us Imaging [facility] Referral ID Status Reason Start Date Expiration Date Visits Requested Visits Authorized [id number] Authorized Auto-Generat ed Referral 08/30/2023 2024 1 1 [facility] for referral (narrative)* Outpatient Procedure (Routine) - Pending Review Specialty Diagnoses / Procedures Referred By Carmen moore Referred To Contact [facility] Diagnoses Encounter for monitoring cardiotoxic drug therapy Procedures ECHO ECHO TTHRC R-T 2D W/WOM-MODE COMPL SPEC&COLR D Rip Rivers DO [address] [place] [address] [facility] [place] [address] [place] [address] Referral ID Status Reason Start Date Expiration Date Visits Requested Visits Authorized [id number] Pending Review Auto-Generat ed Referral 09/21/2023 09/20/2024 1 1 [facility] for referral (narrative)* Outpatient Procedure (Routine) - Pending Review Specialty Diagnoses / Procedures Referred By Contac t Referred To Contact [facility] Diagnoses Chemotherapy-induced cardiomyopathy (HCC) Encounter for monitoring cardiotoxic drug therapy Procedures ECHO ECHO TTHRC R-T 2D W/WOM-MODE COMPL SPEC&COLR D Rip Rivers, DO [address] [place] [address] [facility] [place] [address] [place] [address] Referral ID Status Reason Start Date Expiration Date Visits Requested Visits Authorized [id number] Pending Review Auto-Generat ed Referral 11/23/2023 11/22/2024 1 1 T [facility] for referral (narrative)* Consultation (Routine) - Authorized Specialty Diagnoses / Procedures Referred By Contac t Referred To Contact Primary Care Procedures Follow Up In Primary Care - Established Emma Farrell DO [address] [facility] [place] [address] Referral ID Status Reason Start Date Expiration Date V isits Requested Visits Authorized [id number] Authorized 06/16/2023 06/15/2024 1 1 [facility] Work Phone: Reason for referral (narrative)* Outpatient Procedure (Routine) - New Request Specialty Diagnoses / Procedures Referred By Nachoac t Referred To Contact [facility] Diagnoses Encounter for monitoring cardiotoxic drug therapy Chemotherapy induced cardiomyopathy (HCC) Procedures ECHO ECHO TTHRC R-T 2D W/WOM-MODE COMPL SPEC&COLR D Rip Rivers DO [address] [place] [address] [facility] [place] [address] [place] [address] Referral ID Status Reason Start Date Expiration Date Visits Requested Visits Authorized [id number] New Request Auto-Generat ed Referral 01/06/2024 01/05/2025 1 1 * Outpatient Procedure (Routine) - New Request Specialty Diagnoses / Procedures Referred By Contac t Referred To Contact [facility] [place] Diagnoses Encounter for monitoring cardiotoxic drug therapy Procedures ECHO ECHO TTHRC R-T 2D W/WOM-MODE COMPL SPEC&COLR D Rip Rivers, DO [address] [place] [address] [facility] [place] [address] [place] [address] Referral ID Status Reason Start Date Expiration Date Visits Requested Visits Authorized [id number] New Request Auto-Generat ed Referral 01/06/2024 01/04/2025 1 1 [facility] for referral (narrative)* Outpatient Procedure (Routine) - New Request Specialty Diagnoses / Procedures Referred By Contac t Referred To Contact [facility] [place] Diagnoses Chemotherapy induced cardiomyopathy (HCC) Encounter for monitoring cardiotoxic drug therapy Procedures CARDIO ONCOLOGY ECHO ECHO TTHRC R-T 2D W/WOM-MODE COMPL SPEC&COLR D Rip Rivers, DO [address] [place] [address] [facility] [place] [address] [place] [address] Referral ID Status Reason Start Date Expiration Date Visits Requested Visits Authorized [id number] New Request Auto-Generat ed Referral 01/11/2024 01/10/2025 1 1 [facility] for referral (narrative)No reason for [facility]: Reason for visit Narrative* Diagnostic Procedure Only (Routine) - Closed Specialty Diagnoses / Procedures Referred By Carmen t Referred To Contact MOLECULAR & FUNCTIONAL IMAGING Diagnoses Malignant neoplasm of lower-inner quadrant of right breast of female, estrogen receptor positive (HCC) Bone metastases (HCC) Procedures NM PET/CT SKULL-THIGH INITIAL PET IMAGING CT ATTENUATION SKULL BASE MID-THIGH Rip Rivers, DO [address] [place] [address] [facility] [address] [place] [id number] Referral ID Status Reason Start Date Expiration Date V isits Requested Visits Authorized [id number] Closed Auto-Generate d Referral 08/12/2021 09/11/2022 1 1 [facility] for visit Narrative* Diagnostic Procedure Only (Routine) - Closed Specialty Diagnoses / Procedures Referred By Carmen t Referred To Contact BR IMAGING Diagnoses Abnormal mammogram Procedures MAXIM DIAGNOSTIC LT DIAGNOSTIC MAMMOGRAPHY COMPUTER-AIDED DETCJ UNI Rip Rivers, DO [address] [place] [address] Br Imaging [address] [place] [address] Referral ID Status Reason Start Date Expiration Date V isits Requested Visits Authorized [id number] Closed Auto-Generate d Referral 08/24/2022 09/23/2023 1 1 [facility] for visit Narrative* Diagnostic Procedure Only (Routine) - Closed Specialty Diagnoses / Procedures Referred By Carmen t Referred To Contact BR IMAGING Diagnoses Encounter for screening mammogram for malignant neoplasm of breast Procedures MAXIM SCREENING W OMI SCREENING DIGITAL BREAST TOMOSYNTHESIS BI SCREENING MAMMOGRAPHY BI 2-VIEW BREAST INC CAD Rip Rivers, DO [address] [place] [address] Br Imaging [address] [place] [address] Referral ID Status Reason Start Date Expiration Date V isits Requested Visits Authorized [id number] Closed Auto-Generate d Referral 07/06/2022 08/05/2023 1 1 [facility] for visit Narrative* Diagnostic Procedure Only (Routine) - Closed Specialty Diagnoses / Procedures Referred By Carmen t Referred To Contact US IMAGING Diagnoses Multiple thyroid nodules Procedures US THYROID/PARATHYROID US SOFT TISSUE HEAD & NECK REAL TIME IMGE DOCM Rip Rivers, DO [address] [place] [address] [place] [address] Referral ID Status Reason Start Date Expiration Date V isits Requested Visits Authorized [id number] Closed Auto-Generate d Referral 03/16/2023 04/14/2024 1 1 [facility] for visit Narrative* Diagnostic Procedure Only (Routine) - Closed Specialty Diagnoses / Procedures Referred By Nachoac t Referred To Contact XR IMAGING Diagnoses Chronic left sacroiliac pain Procedures XR SACROILIAC JOINTS 2V AP PELVIS/FERGUESON RADIOLOGIC EXAMINATION SACROILIAC JNTS <3 VIEWS Rip Rivers, DO [address] [place] [address] [place] [address] Referral ID Status Reason Start Date Expiration Date V isits Requested Visits Authorized [id number] Closed Auto-Generate d Referral 11/10/2022 12/10/2023 1 1 [facility] for visit Narrative* Diagnostic Procedure Only (Routine) - Closed Specialty Diagnoses / Procedures Referred By Nachoac t Referred To Contact MOLECULAR & FUNCTIONAL IMAGING Diagnoses Malignant neoplasm of lower-inner quadrant of right breast of female, estrogen receptor positive (HCC) Malignant neoplasm metastatic to bone (HCC) Malignant neoplasm metastatic to lung, unspecified laterality (HCC) Malignant neoplasm metastatic to both lungs (HCC) Procedures NM PET/CT SKULL-THIGH SUBSEQUENT PET IMAGING CT ATTENUATION SKULL BASE MID-THIGH Rip Rivers, DO [address] [place] [address] Molecular & Functional Imaging [address] [place] [address] Referral ID Status Reason Start Date Expiration Date V isits Requested Visits Authorized [id number] Closed Auto-Generate d Referral 08/10/2023 09/08/2024 1 1 [facility] for visit Narrative* MRI/CT (Routine) - Closed Specialty Diagnoses / Procedures Referred By Carmen t Referred To Contact CT IMAGING Diagnoses Malignant neoplasm of lower-inner quadrant of right breast of female, estrogen receptor positive (HCC) Malignant neoplasm metastatic to bone (HCC) Malignant neoplasm metastatic to both lungs (HCC) Procedures CT ABD/PEL W IVCON CT ABD & PELVIS W/CONTRAST Rip Rivers, DO [address] [place] [address] Phone: tel: fax: [place] [address] Referral ID Status Reason Start Date Expiration Date V isits Requested Visits Authorized [id number] Closed Auto-Generate d Referral 08/15/2024 09/14/2025 1 1 [facility] for visit Narrative* [place] Prior Authorization (Routine) - Authorized Specialty Diagnoses / Procedures Referred By Contac t Referred To Contact Diagnoses Malignant neoplasm of lower-inner quadrant of right breast of female, estrogen receptor positive (HCC) Malignant neoplasm metastatic to lung, unspecified laterality (HCC) Malignant neoplasm metastatic to bone (HCC) HER2-positive carcinoma of breast (HCC) Rip Rivers, DO [address] [place] [address] Phone: tel: fax: Hematology/Oncology [address] [place] [address] Phone: tel: fax: Referral ID Status Reason Start Date Expiration Date V isits Requested Visits Authorized [id number] Authorized 08/30/2023 11/28/2023 99 99 [facility] for visit Narrative* MRI/CT (Routine) - Closed Specialty Diagnoses / Procedures Referred By Contac t Referred To Contact CT IMAGING Diagnoses Malignant neoplasm of lower-inner quadrant of right breast of female, estrogen receptor positive (HCC) HER2-positive carcinoma of breast (HCC) Malignant neoplasm metastatic to bone (HCC) Malignant neoplasm metastatic to both lungs (HCC) Chemotherapy-induced cardiomyopathy (HCC) Procedures CT CHEST W IVCON DIAGNOSTIC COMPUTED TOMOGRAPHY THORAX W/CONTRAST Caity Cote APRN.OLIVING MACHINE OPERATOR [address] [place] [address] Phone: tel: fax: [place] [address] Referral ID Status Reason Start Date Expiration Date V isits Requested Visits Authorized [id number] Closed Auto-Generate d Referral 12/26/2024 01/11/2026 1 1 [facility] for visit Narrative* Diagnostic Procedure Only (Routine) - Closed Specialty Diagnoses / Procedures Referred By Contac t Referred To Contact MOLECULAR & FUNCTIONAL IMAGING Diagnoses Malignant neoplasm metastatic to bone (HCC) 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) Malignant neoplasm metastatic to lung, unspecified laterality (HCC) Procedures NM PET/CT SKULL-THIGH SUBSEQUENT PET IMAGING CT ATTENUATION SKULL BASE MID-THIGH Rip Rivers, DO [address] [place] [address] Phone: tel: fax: Molecular Imaging [address] [place] [address] Phone: tel: Referral ID Status Reason Start Date Expiration Date V isits Requested Visits Authorized [id number] Closed Auto-Generate d Referral 01/11/2025 02/10/2026 1 1 [facility] Advance Directives No Advanced Directives Records FoundDocuments on File Type Date Recorded Patient Sap Director Expl anation Advance Directive(s) 06/04/2019 9:16 AM Advance Directive(s) 03/25/2016 10:44 AM Documents on File Type Date Recorded Patient Sap Director Expl anation Advance Directive(s) 06/04/2019 9:16 AM Advance Directive(s) 03/25/2016 10:44 AM Advance Directive Response Recorded Date/ Time Advance Directives No February 2:40pm Living Will No May 01 019 10:24am Power of Dog Track Kennel Manager No May 01, 2019 10:24am Documents on File Type Date Recorded Patient Sap Director Expl anation Advance Directive(s) 06/04/2019 9:16 AM Documents on File Type Date Recorded Patient Sap Director Expl anation Advance Directive(s) 06/04/2019 9:16 AM Advance Directive Response Recorded Date/ Time Advance Directives No February 1:40pm Living Will No May 01, 019 9:24am Power of Dog Track Kennel Manager No May 01, 2019 9:24am Advance Directive Response Recorded Date/ Time Name of Medical Power of Dog Track Kennel Manager tanvi/ February 16, 2023 6:54pm Advance Directives No February 2:40pm Living Will Yes February 16, 2023 6:54pm Power of Dog Track Kennel Manager Yes February 6:54pm Advance Directive Response Recorded Date/ Time Name of Medical Power of Dog Track Kennel Manager Tanvi Christiansen February 17, 2023 1:43am Advance Directives No February 2:40pm Living Will Yes February 17, 2023 1:43am Power of Dog Track Kennel Manager Yes February 1:43am Advance Directive Response Recorded Date/ Time Name of Medical Power of Dog Track Kennel Manager Tanvi Christiansen February 17, 2023 12:43am Advance Directives No February 1:40pm Living Will Yes February 17, 2023 12:43am Power of Dog Track Kennel Manager Yes February 12:43am Advance Directive Response Recorded Date/ Time Name of Medical Power of Dog Track Kennel Manager ted August 16, 2023 10:53pm Advance Directives No February 2:40pm Living Will Yes August 16, 2023 10:53pm Power of Dog Track Kennel Manager Yes August 15 10:53pm Advance Directive Response [...] over 90 Minutes, ONCE, 1 dose, On Tue09/10/21 at 0830, Approx Total Volume: exp 1300 [...] 15 Minutes, ONCE, 1 dose, On Amarilys 10/01/21 at 0900, Refrigerate. New Bag/Syringe/Bottle 10/01/2021 9:13 AM EDT 10 mg fam-trastuzumab deruxtecan-nxki 467.64 mg in D5W 100 mL (ENHERTU) 467.64 mg (5.4 mg/kg/dose 86.6 kg Treatment plan Recorded weight), INTRAVENOUS, Administer over 30 Minutes, ONCE, 1 dose, On Amarilys 10/01/21 at 0900, Approx Total Volume - [...] 30 Minutes, ONCE, 1 dose, On Amarilys 10/22/21 at 1030, exp immediate use (room temp) Hazardous Chemotherapy Drug: Use appropriate PPE. Administer with 0.2 micron filter. Flush line with D5W before and after administration. Refrigerate - Protect from Light New Bag/Syringe/Bottle 10/22/2021 10:44 AM EDT 467.64 mg palonosetron 0.25 mg injection (ALOXI) 0.25 mg, INTRAVENOUS, ONCE, 1 dose, On [facility]ar[facility] 10/22/21 at 1000, Flush IV line with NS prior to and following administration. Given 10/22/2021 10:02 AM EDT 0.25 mg Inactive Administered Medications - up to 3 most recent administrations Medication Order MAR Action Action Date Dose Rate Site zoledronic mf-ztnmnbvv-9.9NaCl 4 mg iv piggyback 100 mL (ZOMETA) [...] 1 dose, On Amarilys 02/04/22 at 1100, Flush IV line with NS prior to and following administration. Given 02/04/2022 11:00 AM EDT 0.25 mg zoledronic di-psggakff-3.9NaCl 4 mg iv piggyback 100 mL (ZOMETA) [...] 10 mg, INTRAVENOUS, ONCE, 1 dose, On [facility] 02/25/22 at 0900, Refrigerate. New Bag/Syringe/Bottle 02/25/2022 [...] 10 mg, INTRAVENOUS, ONCE, 1 dose, On [facility] 03/18/22 at 1130, Refrigerate. New Bag/Syringe/Bottle 03/18/2022 11:38 AM EDT 10 mg fam-trastuzumab deruxtecan-nxki 443.34 mg in D5W 132.167 mL (ENHERTU) 443.34 mg (5.4 mg/kg/dose 82.1 kg Treatment plan Recorded weight), INTRAVENOUS, Administer over 30 Minutes, ONCE, 1 dose, On [facility] 03/18/22 at 1130, Immediate use Hazardous Chemotherapy [...] mg, INTRAVENOUS, ONCE, 1 dose, On Amarilys 05/06/22 at 1100, Refrigerate. New Bag/Syringe/Bottle 05/06/2022 11:00 AM EST 10 mg fam-trastuzumab deruxtecan-nxki 443.34 mg in D5W 132.167 mL (ENHERTU) 443.34 mg (5.4 mg/kg/dose 82.1 kg Treatment plan Recorded weight), INTRAVENOUS, Administer over 30 Minutes, ONCE, 1 dose, On Amarilys 05/06/22 at 1100, Immediate use Hazardous Chemotherapy Drug: Use appropriate PPE. Administer with 0.2 micron filter. Flush line with D5W before and after administration. Refrigerate - Protect from Light New Bag/Syringe/Bottle 05/06/2022 11:17 AM EST 443.34 mg palonosetron 0.25 mg injection (ALOXI) 0.25 mg, INTRAVENOUS, ONCE, 1 dose, On [facility] 05/06/22 at 1100, Flush IV line with NS prior to and following administration. Given 05/06/2022 10:55 AM EST 0.25 mg zoledronic ho-mftsvfce-6.9NaCl 4 mg iv piggyback 100 mL (ZOMETA) 4 mg, INTRAVENOUS, Administer over 15 Minutes, ONCE, 1 dose, On Amarilys 05/06/22 at 1200, Hazardous Potential Reproductive Risk Drug: Use appropriate PPE. New Bag/Syringe/Bottle 05/06/2022 11:51 AM EST 4 mg Inactive Administered Medications - up to 3 most recent administrations Medication Order MAR Action Action Date Dose Rate Site dexAMETHasone 10 mg/NS 50 mL (PYXIS) 10 mg ivpb (DECADRON) 10 mg, INTRAVENOUS, ONCE, 1 dose, On [facility] 05/27/22 at 1100, Refrigerate. New Bag/Syringe/Bottle 05/27/2022 10:56 AM EST 10 mg fam-trastuzumab deruxtecan-nxki 443.34 mg in D5W 132.167 mL (ENHERTU) 443.34 mg (5.4 mg/kg/dose 82.1 kg Treatment plan Recorded weight), INTRAVENOUS, Administer over 30 Minutes, ONCE, 1 dose, On Amarilys 05/27/22 at 1100, Immediate use Hazardous Chemotherapy Drug: [...] 07/29/2022 9:30 AM EST 0.25 mg zoledronic ih-eshlgbhl-6.9NaCl 4 mg iv piggyback 100 mL (ZOMETA) [...] 0.25 mg, INTRAVENOUS, ONCE, 1 dose, On [facility] 12/02/22 at 0930, Flush IV line with [...] over 30 Minutes, ONCE, 1 dose, On [facility] 01/13/23 at 1300, exp 1630 01/13/23 (room temp) Hazardous Chemotherapy Drug: Use appropriate PPE. Administer with 0.2 micron filter. Flush line with D5W before and after administration. Refrigerate - Protect from Light New Bag/Syringe/Bottle 01/13/2023 1:56 PM EDT 465.48 mg palonosetron 0.25 mg injection (ALOXI) 0.25 mg, INTRAVENOUS, ONCE, 1 dose, On [facility] 01/13/23 at 1300, Flush IV line with NS prior to and following administration. Given 01/13/2023 1:19 PM EDT 0.25 mg zoledronic ie-crvhfodp-5.9NaCl 4 mg iv piggyback 100 mL (ZOMETA) 4 mg, INTRAVENOUS, Administer over 15 Minutes, ONCE, 1 dose, On [facility] 01/13/23 at 1330, Hazardous Potential Reproductive Risk Drug: Use appropriate PPE. New Bag/Syringe/Bottle 01/13/2023 1:38 PM EDT 4 mg Inactive Administered Medications - up to 3 most recent administrations Medication Order MAR Action Action Date Dose Rate Site dexAMETHasone 10 mg in NaCl 0.9% 50 mL (DECADRON) 10 mg, INTRAVENOUS, Administer over 15 Minutes, ONCE, 1 dose, On [facility] 03/17/23 at 1330, Refrigerate. New Bag/Syringe/Bottle 03/17/2023 1:49 PM EDT 10 mg fam-trastuzumab deruxtecan-nxki 465.48 mg in D5W 133.274 mL (ENHERTU) 465.48 mg (5.4 mg/kg/dose 86.2 kg Order-specific weight), INTRAVENOUS, Administer over 30 Minutes, ONCE, 1 dose, On Tue03/17/23 at 1330, exp 1600 03/17/23 (room temp). [...] Referral Specialty Diagnoses / Procedures Referred By Contac [...] DIAGNOSTIC COMPUTED TOMOGRAPHY THORAX W/CONTRAST Caity Cote, EREN.OLIVING MACHINE OPERATOR [address] [place] [address] Ct Imaging Referral ID Status Reason Start Date Expiration Date Visits Requested Visits Authorized [id number] Authorized Auto-Generat ed Referral 10/21/2021 11/20/2022 1 [...] CT ABD & PELVIS W/CONTRAST Caity Cote, EREN.OLIVING MACHINE OPERATOR [address] [place] [address] Ct Imaging Referral ID Status Reason Start Date Expiration Date Visits Requested Visits Authorized [id number] Authorized Auto-Generat ed Referral 10/21/2021 11/20/2022 1 1 Specialty Diagnoses / [facility] Diagnoses Malignant neoplasm of lower-inner quadrant of right breast of female, estrogen receptor positive (HCC) Bone metastases (HCC) Skin, 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) Procedures ECHO ECHO TTHRC R-T 2D W/WOM-MODE COMPL SPEC&COLR D Caity Cote, EREN.OLIVING MACHINE OPERATOR [address] [place] [address] [facility] [place] [address] [place] [address] Referral ID Status Reason Start Date Expiration Date Visits Requested Visits Authorized [id number] Pending Review Auto-Generat ed Referral 10/21/2021 10/21/2022 1 1 Referral ID Status Reason Start Date Expiration Date V isits Requested Visits Authorized [id number] Closed Auto-Generate d Referral 10/21/2021 11/20/2022 1 1 Referral ID Status Reason Start Date Expiration Date V isits Requested Visits Authorized [id number] Closed Auto-Generate d Referral 10/21/2021 11/20/2022 1 1 Specialty Diagnoses / Procedures Referred By Contac t Referred To Contact CT IMAGING Diagnoses Malignant neoplasm of lower-inner quadrant of right breast of female, estrogen receptor positive (HCC) Bone metastases (HCC) Malignant neoplasm metastatic to both lungs (HCC) Skin, 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) Procedures CT CHEST W IVCON DIAGNOSTIC COMPUTED TOMOGRAPHY THORAX W/CONTRAST Caity Cote, EREN.OLIVING MACHINE OPERATOR [address] [place] [address] Ct Imaging Referral ID Status Reason Start Date Expiration Date Visits Requested Visits Authorized [id number] Authorized Auto-Generat ed Referral 12/23/2021 01/22/2023 1 1 Specialty Diagnoses / Procedures Referred By Contac t Referred To Contact CT IMAGING Diagnoses Malignant neoplasm of lower-inner quadrant of right breast of female, estrogen receptor positive (HCC) Bone metastases (HCC) Malignant neoplasm metastatic to both lungs (HCC) Skin, 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) Procedures CT ABD/PEL W IVCON CT ABD & PELVIS W/CONTRAST Caity Cote, PULLEY WORKER.OLIVING MACHINE OPERATOR [address] [place] [address] Ct Imaging Referral ID Status Reason Start Date Expiration Date Visits Requested Visits Authorized [id number] Authorized Auto-Generat ed Referral 12/23/2021 01/22/2023 1 1 Referral ID Status Reason Start Date Expiration Date V isits Requested Visits Authorized [id number] Closed Auto-Generate d Referral 12/23/2021 01/22/2023 1 1 Referral ID Status Reason Start Date Expiration Date V isits Requested Visits Authorized [id number] Closed Auto-Generate d Referral 12/23/2021 01/22/2023 1 1 Specialty Diagnoses / Procedures Referred By Contac t Referred To Contact CT IMAGING Diagnoses Malignant neoplasm of lower-inner quadrant of right breast of female, estrogen receptor positive (HCC) Bone metastases (HCC) Malignant neoplasm metastatic to both lungs (HCC) Procedures CT CHEST W IVCON DIAGNOSTIC COMPUTED TOMOGRAPHY THORAX W/CONTRAST Rpi Rivers, DO [address] [place] [address] Ct Imaging Referral ID Status Reason Start Date Expiration Date Visits Requested Visits Authorized [id number] Authorized Auto-Generat ed Referral 07/06/2022 08/05/2023 1 1 Specialty Diagnoses / Procedures Referred By Contac t Referred To Contact CT IMAGING Diagnoses Malignant neoplasm of lower-inner quadrant of right breast of female, estrogen receptor positive (HCC) Bone metastases (HCC) Malignant neoplasm metastatic to both lungs (HCC) Procedures CT ABD/PEL W IVCON CT ABD & PELVIS W/CONTRAST Rip Rivers, DO [address] [place] [address] Ct Imaging Referral ID Status Reason Start Date Expiration Date Visits Requested Visits Authorized [id number] Authorized Auto-Generat ed Referral 07/06/2022 08/05/2023 1 1 Specialty Diagnoses / Procedures Referred By Contac t Referred To Contact [facility] Diagnoses Encounter for screening mammogram for malignant neoplasm of breast Procedures MAXIM SCREENING W OMI SCREENING DIGITAL BREAST TOMOSYNTHESIS BI SCREENING MAMMOGRAPHY BI 2-VIEW BREAST INC CAD Rip Rivers, DO [address] [place] [address] Br Imaging [address] [place] [id number] Referral ID Status Reason Start Date Expiration Date Visits Requested Visits Authorized [id number] Authorized Auto-Generat ed Referral 07/06/2022 08/05/2023 1 1 Referral ID Status Reason Start Date Expiration Date Visits Requested Visits Authorized [id number] Pending Review Auto-Generat ed Referral 07/30/2022 08/29/2023 1 1 Referral ID Status Reason Start Date Expiration Date Visits Requested Visits Authorized [id number] Pending Review Auto-Generat ed Referral 07/30/2022 08/29/2023 1 1 Specialty Diagnoses / Procedures Referred By Contac t Referred To Contact Diagnoses Malignant neoplasm metastatic to left lung (HCC) Procedures CT SIM PLANNING RADIATION ONCOLOGY THER RAD SIMULAJ-AIDED FIELD SETTING COMPLEX Jarrod, Daesung, MD, [address] [facility] [address] [address] Referral ID Status Reason Start Date Expiration Date Visits Requested Visits Authorized [id number] Pending Review PCP Requested Referral 02/09/2023 05/09/2023 1 1 Specialty Diagnoses / Procedures Referred By Contac t Referred To Contact CT IMAGING Diagnoses Malignant neoplasm metastatic to bone (HCC) Procedures CT CHEST WO IVCON DIAGNOSTIC COMPUTED TOMOGRAPHY THORAX W/O CNTRST Rip Rivers, [address] [place] [address] [place] [address] Referral ID Status Reason Start Date Expiration Date Visits Requested Visits Authorized [id number] Authorized Auto-Generat ed Referral 02/23/2023 03/24/2024 1 1 Specialty Diagnoses / Procedures Referred By Contac t Referred To Contact CT IMAGING Diagnoses Malignant neoplasm metastatic to left lung (HCC) Procedures CT CHEST WO IVCON DIAGNOSTIC COMPUTED TOMOGRAPHY THORAX W/O CNTRST Meenu Garay MD, [address] [facility] [place] [address] [place] [address] Referral ID Status Reason Start Date Expiration Date Visits Requested Visits Authorized [id number] Authorized Auto-Generat ed Referral 04/28/2024 1 1 Referral ID Status Reason Start Date Expiration Date V isits Requested Visits Authorized [id number] Closed Auto-Generate d Referral 02/23/2023 03/24/2024 1 1 Specialty Diagnoses / Procedures Referred By Contac t Referred To Contact CT IMAGING Diagnoses Malignant neoplasm of lower-inner quadrant of right breast of female, estrogen receptor positive (HCC) Bone metastases Malignant neoplasm metastatic to both lungs (HCC) Procedures CT CHEST W IVCON DIAGNOSTIC COMPUTED TOMOGRAPHY THORAX W/CONTRAST Rip Rivers, DO [address] [place] [address] [place] [address] Referral ID Status Reason Start Date Expiration Date V isits Requested Visits Authorized [id number] Closed Auto-Generate d Referral 07/30/2022 08/29/2023 1 1 Specialty Diagnoses / Procedures [facility] Diagnoses Malignant neoplasm of lower-inner quadrant of right breast of female, estrogen receptor positive (HCC) Bone metastases Malignant neoplasm metastatic to both lungs (HCC) Procedures CT ABD/PEL W IVCON CT ABD & PELVIS W/CONTRAST Rip Rivers, DO [address] [place] [address] [place] [address] Referral ID Status Reason Start Date Expiration Date V isits Requested Visits Authorized [id number] Closed Auto-Generate d Referral 07/30/2022 08/29/2023 1 1 Specialty Diagnoses / Procedures [facility] Diagnoses Malignant neoplasm of lower-inner quadrant of right breast of female, estrogen receptor positive (HCC) 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) Malignant neoplasm metastatic to both lungs (HCC) Procedures CT CHEST W IVCON DIAGNOSTIC COMPUTED TOMOGRAPHY THORAX W/CONTRAST Rip Rivers, DO [address] [place] [address] [place] [address] Referral ID Status Reason Start Date Expiration Date V isits Requested Visits Authorized [id number] Closed Auto-Generate d Referral 12/22/2022 01/21/2024 1 1 Specialty Diagnoses / Procedures [facility] Diagnoses Malignant neoplasm of lower-inner quadrant of right breast of female, estrogen receptor positive (HCC) 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) Malignant neoplasm metastatic to both lungs (HCC) Procedures CT ABD/PEL W IVCON CT ABD & PELVIS W/CONTRAST Rip Rivers, DO [address] [place] [address] [place] [address] Referral ID Status Reason Start Date Expiration Date V isits Requested Visits Authorized [id number] Closed Auto-Generate d Referral 12/22/2022 01/21/2024 1 1 Referral ID Status Reason Start Date Expiration Date V isits Requested Visits Authorized [id number] Closed Auto-Generate d Referral 07/06/2022 08/05/2023 1 1 Referral ID Status Reason Start Date Expiration Date V isits Requested Visits Authorized [id number] Closed Auto-Generate d Referral 07/06/2022 08/05/2023 1 1 Specialty Diagnoses / Procedures Referred By Contac t Referred To Contact CT IMAGING Diagnoses Malignant neoplasm of lower-inner quadrant of right breast of female, estrogen receptor positive (HCC) Bone metastases Procedures CT CHEST W IVCON DIAGNOSTIC COMPUTED TOMOGRAPHY THORAX W/CONTRAST Caity Cote, PULLEY WORKER.OLIVING MACHINE OPERATOR [address] [place] [address] [place] [address] Referral ID Status Reason Start Date Expiration Date V isits Requested Visits Authorized [id number] Closed Auto-Generate d Referral 04/14/2022 05/14/2023 1 1 Specialty Diagnoses / Procedures Referred By Contac t Referred To Contact CT IMAGING Diagnoses Malignant neoplasm of lower-inner quadrant of right breast of female, estrogen receptor positive (HCC) Bone metastases Procedures CT ABD/PEL W IVCON CT ABD & PELVIS W/CONTRAST Caity Cote, PULLEY WORKER.OLIVING MACHINE OPERATOR [address] [place] [address] [place] [address] Referral ID Status Reason Start Date Expiration Date V isits Requested Visits Authorized [id number] Closed Auto-Generate d Referral 04/14/2022 05/14/2023 1 1 Specialty Diagnoses / Procedures Referred By Contac t Referred To Contact Diagnoses Secondary malignant neoplasm of right lung (HCC) Procedures CT SIM PLANNING RADIATION ONCOLOGY THER RAD SIMULAJ-AIDED FIELD SETTING COMPLEX Meenu Garay MD [address] [place] [address] Referral ID Status Reason Start Date Expiration Date Visits Requested Visits Authorized [id number] Pending Review PCP Requested Referral 09/27/2023 12/11/2023 1 1 Specialty Diagnoses / Procedures Referred By Contac t Referred To Contact CT IMAGING Diagnoses Secondary malignant neoplasm of right lung (HCC) Procedures CT CHEST WO IVCON DIAGNOSTIC COMPUTED TOMOGRAPHY THORAX W/O CNTRST Meenu Garay MD [address] [place] [address] [place] [address] Referral ID Status Reason Start Date Expiration Date Visits Requested Visits Authorized [id number] Pending Review Auto-Generat ed Referral 01/11/2024 11/26/2024 [...] DIAGNOSTIC COMPUTED TOMOGRAPHY THORAX W/CONTRAST Caity Cote, PULLEY WORKER.OLIVING MACHINE OPERATOR [address] [place] [address] [place] [address] Referral ID Status Reason Start Date Expiration Date Visits Requested Visits Authorized [id number] Authorized Auto-Generat ed Referral 12/14/2023 01/12/2025 1 [...] CT ABD & PELVIS W/CONTRAST Caity Cote, PULLEY WORKER.OLIVING MACHINE OPERATOR [address] [place] [address] [place] [address] Referral ID Status Reason Start Date Expiration Date Visits Requested Visits Authorized [id number] Authorized Auto-Generat ed Referral 12/14/2023 01/12/2025 1 1 Specialty Diagnoses / Procedures Referred By Contac t Referred To Contact CT IMAGING Diagnoses Malignant neoplasm of lower-inner quadrant of right breast of female, estrogen receptor positive (HCC) Orthopnea Interstitial pulmonary disease (HCC) Procedures CT CHEST WO IVCON DIAGNOSTIC COMPUTED TOMOGRAPHY THORAX W/O CNTRST Rip Rivers, DO [address] [place] [address] [place] [address] Referral ID Status Reason Start Date Expiration Date V isits Requested Visits Authorized [id number] Closed Auto-Generate d Referral 01/04/2024 02/02/2025 1 [...] THORAX W/CONTRAST Rip Rivers, DO [address] [place] [address] Ct Imaging [id number] Referral ID Status Reason Start Date Expiration Date Visits Requested Visits Authorized [id number] New Request Auto-Generat ed Referral 4 04/20/2025 [...] PELVIS W/CONTRAST Rip Rivers, DO [address] [place] [address] Ct Imaging [id number] Referral ID Status Reason Start Date Expiration Date Visits Requested Visits Authorized [id number] New Request Auto-Generat ed Referral 4 04/20/2025 1 1 Chief Complaint and Reason [...] right breast Chief Complaint Admit Date Other detention (current) drug therapy A pril 2024 1:41pm Chief Complaint Admit Date Other intermediate teacher (current) drug therapy A pril 2024 1:41pm Malignant neoplasm of lower-inner quadra nt of [facility] December 19, 2024 6:40am Family History No Family History Records Found [...] or prosecute any alcohol or drug abuse patient.[facility] Center[facility] the event this information is protected by the Federal Confidentiality of Alcohol and Drug Abuse Patient Records regulations: The Federal rules restrict any use of the information to criminally investigate or prosecute any alcohol or drug abuse patient.[facility] Center[facility] the event this information is protected by the Federal Confidentiality of Alcohol and Drug Abuse Patient Records regulations: The Federal rules restrict any use of the information to criminally investigate or prosecute any alcohol or drug abuse patient.[facility] Center[facility] the event this information is protected by the Federal Confidentiality of Alcohol and Drug Abuse Patient Records regulations: The Federal rules restrict any use of the information to criminally investigate or prosecute any alcohol or drug abuse patient.[facility] CenterIn the event this information is protected by the Federal Confidentiality of Alcohol and Drug Abuse Patient Records regulations: The Federal rules restrict any use of the information to criminally investigate or prosecute any alcohol or drug abuse patient.[facility] Center[facility] the event this information is protected by the Federal Confidentiality of Alcohol and Drug Abuse Patient Records regulations: The Federal rules restrict any use of the information to criminally investigate or prosecute any alcohol or drug abuse patient.[facility] Center[facility] the event this information is protected by the Federal Confidentiality of Alcohol and Drug Abuse Patient Records regulations: The Federal rules restrict any use of the information to criminally investigate or prosecute any alcohol or drug abuse patient.[facility] CenterIn the event this information is protected by the Federal Confidentiality of Alcohol and Drug Abuse Patient Records regulations: The Federal rules restrict any use of the information to criminally investigate or prosecute any alcohol or drug abuse patient.[facility] Center[facility] the event this information is protected by the Federal Confidentiality of Alcohol and Drug Abuse Patient Records regulations: The Federal rules restrict any use of the information to criminally investigate or prosecute any alcohol or drug abuse patient.[facility] Center[facility] the event this information is protected by the Federal Confidentiality of Alcohol and Drug Abuse Patient Records regulations: The Federal rules restrict any use of the information to criminally investigate or prosecute any alcohol or drug abuse patient.[facility] Center[facility] the event this information is protected by the Federal Confidentiality of Alcohol and Drug Abuse Patient Records regulations: The Federal rules restrict any use of the information to criminally investigate or prosecute any alcohol or drug abuse patient.[facility] CenterIn the event this information is protected by the Federal Confidentiality of Alcohol and Drug Abuse Patient Records regulations: The Federal rules restrict any use of the information to criminally investigate or prosecute any alcohol or drug abuse patient.[facility] CenterIn the event this information is protected by the Federal Confidentiality of Alcohol and Drug Abuse Patient Records regulations: The Federal rules restrict any use of the information to criminally investigate or prosecute any alcohol or drug abuse patient.[facility] CenterIn the event this information is protected by the Federal Confidentiality of Alcohol and Drug Abuse Patient Records regulations: The Federal rules restrict any use of the information to criminally investigate or prosecute any alcohol or drug abuse patient.[facility] CenterIn the event this information is protected by the Federal Confidentiality of Alcohol and Drug Abuse Patient Records regulations: The Federal rules restrict any use of the information to criminally investigate or prosecute any alcohol or drug abuse patient.[facility] CenterIn the event this information is protected by the Federal Confidentiality of Alcohol and Drug Abuse Patient Records regulations: The Federal rules restrict any use of the information to criminally investigate or prosecute any alcohol or drug abuse patient.[facility] CenterIn the event this information is protected by the Federal Confidentiality of Alcohol and Drug Abuse Patient Records regulations: The Federal rules restrict any use of the information to criminally investigate or prosecute any alcohol or drug abuse patient.[facility] CenterIn the event this information is protected by the Federal Confidentiality of Alcohol and Drug Abuse Patient Records regulations: The Federal rules restrict any use of the information to criminally investigate or prosecute any alcohol or drug abuse patient.[facility] CenterIn the event this information is protected by the Federal Confidentiality of Alcohol and Drug Abuse Patient Records regulations: The Federal rules restrict any use of the information to criminally investigate or prosecute any alcohol or drug abuse patient.[facility] CenterIn the event this information is protected by the Federal Confidentiality of Alcohol and Drug Abuse Patient Records regulations: The Federal rules restrict any use of the information to criminally investigate or prosecute any alcohol or drug abuse patient.[facility] CenterIn the event this information is protected by the Federal Confidentiality of Alcohol and Drug Abuse Patient Records regulations: The Federal rules restrict any use of the information to criminally investigate or prosecute any alcohol or drug abuse patient.[facility] CenterIn the event this information is protected by the Federal Confidentiality of Alcohol and Drug Abuse Patient Records regulations: The Federal rules restrict any use of the information to criminally investigate or prosecute any alcohol or drug abuse patient.[facility] CenterIn the event this information is protected by the Federal Confidentiality of Alcohol and Drug Abuse Patient Records regulations: The Federal rules restrict any use of the information to criminally investigate or prosecute any alcohol or drug abuse patient.[facility] CenterIn the event this information is protected by the Federal Confidentiality of Alcohol and Drug Abuse Patient Records regulations: The Federal rules restrict any use of the information to criminally investigate or prosecute any alcohol or drug abuse patient.[facility] CenterIn the event this information is protected by the Federal Confidentiality of Alcohol and Drug Abuse Patient Records regulations: The Federal rules restrict any use of the information to criminally investigate or prosecute any alcohol or drug abuse patient.[facility] CenterIn the event this information is protected by the Federal Confidentiality of Alcohol and Drug Abuse Patient Records regulations: The Federal rules restrict any use of the information to criminally investigate or prosecute any alcohol or drug abuse patient.[facility] CenterIn the event this information is protected by the Federal Confidentiality of Alcohol and Drug Abuse Patient Records regulations: The Federal rules restrict any use of the information to criminally investigate or prosecute any alcohol or drug abuse patient.[facility] CenterIn the event this information is protected by the Federal Confidentiality of Alcohol and Drug Abuse Patient Records regulations: The Federal rules restrict any use of the information to criminally investigate or prosecute any alcohol or drug abuse patient.[facility] CenterIn the event this information is protected by the Federal Confidentiality of Alcohol and Drug Abuse Patient Records regulations: The Federal rules restrict any use of the information to criminally investigate or prosecute any alcohol or drug abuse patient.[facility] CenterIn the event this information is protected by the Federal Confidentiality of Alcohol and Drug Abuse Patient Records regulations: The Federal rules restrict any use of the information to criminally investigate or prosecute any alcohol or drug abuse patient.[facility] the event this information is protected by the Federal Confidentiality of Alcohol and Drug Abuse Patient Records regulations: The Federal rules restrict any use of the information to criminally investigate or prosecute any alcohol or drug abuse patient.[facility] CenterIn the event this information is protected by the Federal Confidentiality of Alcohol and Drug Abuse Patient Records regulations: The Federal rules restrict any use of the information to criminally investigate or prosecute any alcohol or drug abuse patient.[facility] CenterIn the event this information is protected by the Federal Confidentiality of Alcohol and Drug Abuse Patient Records regulations: The Federal rules restrict any use of the information to criminally investigate or prosecute any alcohol or drug abuse patient.[facility] the event this information is protected by the Federal Confidentiality of Alcohol and Drug Abuse Patient Records regulations: The Federal rules restrict any use of the information to criminally investigate or prosecute any alcohol or drug abuse patient.[facility] CenterIn the event this information is protected by the Federal Confidentiality of Alcohol and Drug Abuse Patient Records regulations: The Federal rules restrict any use of the information to criminally investigate or prosecute any alcohol or drug abuse patient.[facility] CenterIn the event this information is protected by the Federal Confidentiality of Alcohol and Drug Abuse Patient Records regulations: The Federal rules restrict any use of the information to criminally investigate or prosecute any alcohol or drug abuse patient.[facility] CenterIn the event this information is protected by the Federal Confidentiality of Alcohol and Drug Abuse Patient Records regulations: The Federal rules restrict any use of the information to criminally investigate or prosecute any alcohol or drug abuse patient.[facility] CenterIn the event this information is protected by the Federal Confidentiality of Alcohol and Drug Abuse Patient Records regulations: The Federal rules restrict any use of the information to criminally investigate or prosecute any alcohol or drug abuse patient.[facility] CenterIn the event this information is protected by the Federal Confidentiality of Alcohol and Drug Abuse Patient Records regulations: The Federal rules restrict any use of the information to criminally investigate or prosecute any alcohol or drug abuse patient.[facility] CenterIn the event this information is protected by the Federal Confidentiality of Alcohol and Drug Abuse Patient Records regulations: The Federal rules restrict any use of the information to criminally investigate or prosecute any alcohol or drug abuse patient.[facility] CenterIn the event this information is protected by the Federal Confidentiality of Alcohol and Drug Abuse Patient Records regulations: The Federal rules restrict any use of the information to criminally investigate or prosecute any alcohol or drug abuse patient.[facility] CenterIn the event this information is protected by the Federal Confidentiality of Alcohol and Drug Abuse Patient Records regulations: The Federal rules restrict any use of the information to criminally investigate or prosecute any alcohol or drug abuse patient.[facility] CenterIn the event this information is protected by the Federal Confidentiality of Alcohol and Drug Abuse Patient Records regulations: The Federal rules restrict any use of the information to criminally investigate or prosecute any alcohol or drug abuse patient.[facility] CenterIn the event this information is protected by the Federal Confidentiality of Alcohol and Drug Abuse Patient Records regulations: The Federal rules restrict any use of the information to criminally investigate or prosecute any alcohol or drug abuse patient.[facility] CenterIn the event this information is protected by the Federal Confidentiality of Alcohol and Drug Abuse Patient Records regulations: The Federal rules restrict any use of the information to criminally investigate or prosecute any alcohol or drug abuse patient.[facility] CenterIn the event this information is protected by the Federal Confidentiality of Alcohol and Drug Abuse Patient Records regulations: The Federal rules restrict any use of the information to criminally investigate or prosecute any alcohol or drug abuse patient.[facility] CenterIn the event this information is protected by the Federal Confidentiality of Alcohol and Drug Abuse Patient Records regulations: The Federal rules restrict any use of the information to criminally investigate or prosecute any alcohol or drug abuse patient.[facility] CenterIn the event this information is protected by the Federal Confidentiality of Alcohol and Drug Abuse Patient Records regulations: The Federal rules restrict any use of the information to criminally investigate or prosecute any alcohol or drug abuse patient.[facility] CenterIn the event this information is protected by the Federal Confidentiality of Alcohol and Drug Abuse Patient Records regulations: The Federal rules restrict any use of the information to criminally investigate or prosecute any alcohol or drug abuse patient.[facility] CenterIn the event this information is protected by the Federal Confidentiality of Alcohol and Drug Abuse Patient Records regulations: The Federal rules restrict any use of the information to criminally investigate or prosecute any alcohol or drug abuse patient.[facility] CenterIn the event this information is protected by the Federal Confidentiality of Alcohol and Drug Abuse Patient Records regulations: The Federal rules restrict any use of the information to criminally investigate or prosecute any alcohol or drug abuse patient.[facility] CenterIn the event this information is protected by the Federal Confidentiality of Alcohol and Drug Abuse Patient Records regulations: The Federal rules restrict any use of the information to criminally investigate or prosecute any alcohol or drug abuse patient.[facility] CenterIn the event this information is protected by the Federal Confidentiality of Alcohol and Drug Abuse Patient Records regulations: The Federal rules restrict any use of the information to criminally investigate or prosecute any alcohol or drug abuse patient.[facility] CenterIn the event this information is protected by the Federal Confidentiality of Alcohol and Drug Abuse Patient Records regulations: The Federal rules restrict any use of the information to criminally investigate or prosecute any alcohol or drug abuse patient.[facility] CenterIn the event this information is protected by the Federal Confidentiality of Alcohol and Drug Abuse Patient Records regulations: The Federal rules restrict any use of the information to criminally investigate or prosecute any alcohol or drug abuse patient.[facility]In the event this information is protected by the Federal Confidentiality of Alcohol and Drug Abuse Patient Records regulations: The Federal rules restrict any use of the information to criminally investigate or prosecute any alcohol or drug abuse patient.[facility] CenterIn the event this information is protected by the Federal Confidentiality of Alcohol and Drug Abuse Patient Records regulations: The Federal rules restrict any use of the information to criminally investigate or prosecute any alcohol or drug abuse patient.[facility] CenterIn the event this information is protected by the Federal Confidentiality of Alcohol and Drug Abuse Patient Records regulations: The Federal rules restrict any use of the information to criminally investigate or prosecute any alcohol or drug abuse patient.[facility] CenterIn the event this information is protected by the Federal Confidentiality of Alcohol and Drug Abuse Patient Records regulations: The Federal rules restrict any use of the information to criminally investigate or prosecute any alcohol or drug abuse patient.[facility] CenterIn the event this information is protected by the Federal Confidentiality of Alcohol and Drug Abuse Patient Records regulations: The Federal rules restrict any use of the information to criminally investigate or prosecute any alcohol or drug abuse patient.[facility] CenterIn the event this information is protected by the Federal Confidentiality of Alcohol and Drug Abuse Patient Records regulations: The Federal rules restrict any use of the information to criminally investigate or prosecute any alcohol or drug abuse patient.[facility] CenterIn the event this information is protected by the Federal Confidentiality of Alcohol and Drug Abuse Patient Records regulations: The Federal rules restrict any use of the information to criminally investigate or prosecute any alcohol or drug abuse patient.[facility] CenterIn the event this information is protected by the Federal Confidentiality of Alcohol and Drug Abuse Patient Records regulations: The Federal rules restrict any use of the information to criminally investigate or prosecute any alcohol or drug abuse patient.[facility] CenterIn the event this information is protected by the Federal Confidentiality of Alcohol and Drug Abuse Patient Records regulations: The Federal rules restrict any use of the information to criminally investigate or prosecute any alcohol or drug abuse patient.[facility] CenterIn the event this information is protected by the Federal Confidentiality of Alcohol and Drug Abuse Patient Records regulations: The Federal rules restrict any use of the information to criminally investigate or prosecute any alcohol or drug abuse patient.[facility] CenterIn the event this information is protected by the Federal Confidentiality of Alcohol and Drug Abuse Patient Records regulations: The Federal rules restrict any use of the information to criminally investigate or prosecute any alcohol or drug abuse patient.[facility] CenterIn the event this information is protected by the Federal Confidentiality of Alcohol and Drug Abuse Patient Records regulations: The Federal rules restrict any use of the information to criminally investigate or prosecute any alcohol or drug abuse patient.[facility] CenterIn the event this information is protected by the Federal Confidentiality of Alcohol and Drug Abuse Patient Records regulations: The Federal rules restrict any use of the information to criminally investigate or prosecute any alcohol or drug abuse patient.[facility] CenterIn the event this information is protected by the Federal Confidentiality of Alcohol and Drug Abuse Patient Records regulations: The Federal rules restrict any use of the information to criminally investigate or prosecute any alcohol or drug abuse patient.[facility] CenterIn the event this information is protected by the Federal Confidentiality of Alcohol and Drug Abuse Patient Records regulations: The Federal rules restrict any use of the information to criminally investigate or prosecute any alcohol or drug abuse patient.[facility] CenterIn the event this information is protected by the Federal Confidentiality of Alcohol and Drug Abuse Patient Records regulations: The Federal rules restrict any use of the information to criminally investigate or prosecute any alcohol or drug abuse patient.[facility] CenterIn the event this information is protected by the Federal Confidentiality of Alcohol and Drug Abuse Patient Records regulations: The Federal rules restrict any use of the information to criminally investigate or prosecute any alcohol or drug abuse patient.[facility] CenterIn the event this information is protected by the Federal Confidentiality of Alcohol and Drug Abuse Patient Records regulations: The Federal rules restrict any use of the information to criminally investigate or prosecute any alcohol or drug abuse patient.[facility]In the event this information is protected by the Federal Confidentiality of Alcohol and Drug Abuse Patient Records regulations: The Federal rules restrict any use of the information to criminally investigate or prosecute any alcohol or drug abuse patient.[facility]In the event this information is protected by the Federal Confidentiality of Alcohol and Drug Abuse Patient Records regulations: The Federal rules restrict any use of the information to criminally investigate or prosecute any alcohol or drug abuse patient.[facility] CenterIn the event this information is protected by the Federal Confidentiality of Alcohol and Drug Abuse Patient Records regulations: The Federal rules restrict any use of the information to criminally investigate or prosecute any alcohol or drug abuse patient.[facility]In the event this information is protected by the Federal Confidentiality of Alcohol and Drug Abuse Patient Records regulations: The Federal rules restrict any use of the information to criminally investigate or prosecute any alcohol or drug abuse patient.[facility]In the event this information is protected by the Federal Confidentiality of Alcohol and Drug Abuse Patient Records regulations: The Federal rules restrict any use of the information to criminally investigate or prosecute any alcohol or drug abuse patient.[facility]In the event this information is protected by the Federal Confidentiality of Alcohol and Drug Abuse Patient Records regulations: The Federal rules restrict any use of the information to criminally investigate or prosecute any alcohol or drug abuse patient.[facility] CenterIn the event this information is protected by the Federal Confidentiality of Alcohol and Drug Abuse Patient Records regulations: The Federal rules restrict any use of the information to criminally investigate or prosecute any alcohol or drug abuse patient.[facility] the event this information is protected by the Federal Confidentiality of Alcohol and Drug Abuse Patient Records regulations: The Federal rules restrict any use of the information to criminally investigate or prosecute any alcohol or drug abuse patient.[facility]In the event this information is protected by the Federal Confidentiality of Alcohol and Drug Abuse Patient Records regulations: The Federal rules restrict any use of the information to criminally investigate or prosecute any alcohol or drug abuse patient.[facility] CenterIn the event this information is protected by the Federal Confidentiality of Alcohol and Drug Abuse Patient Records regulations: The Federal rules restrict any use of the information to criminally investigate or prosecute any alcohol or drug abuse patient.[facility] the event this information is protected by the Federal Confidentiality of Alcohol and Drug Abuse Patient Records regulations: The Federal rules restrict any use of the information to criminally investigate or prosecute any alcohol or drug abuse patient.[facility]In the event this information is protected by the Federal Confidentiality of Alcohol and Drug Abuse Patient Records regulations: The Federal rules restrict any use of the information to criminally investigate or prosecute any alcohol or drug abuse patient.[facility]In the event this information is protected by the Federal Confidentiality of Alcohol and Drug Abuse Patient Records regulations: The Federal rules restrict any use of the information to criminally investigate or prosecute any alcohol or drug abuse patient.[facility]In the event this information is protected by the Federal Confidentiality of Alcohol and Drug Abuse Patient Records regulations: The Federal rules restrict any use of the information to criminally investigate or prosecute any alcohol or drug abuse patient.[facility]In the event this information is protected by the Federal Confidentiality of Alcohol and Drug Abuse Patient Records regulations: The Federal rules restrict any use of the information to criminally investigate or prosecute any alcohol or drug abuse patient.[facility]In the event this information is protected by the Federal Confidentiality of Alcohol and Drug Abuse Patient Records regulations: The Federal rules restrict any use of the information to criminally investigate or prosecute any alcohol or drug abuse patient.[facility]In the event this information is protected by the Federal Confidentiality of Alcohol and Drug Abuse Patient Records regulations: The Federal rules restrict any use of the information to criminally investigate or prosecute any alcohol or drug abuse patient.[facility]In the event this information is protected by the Federal Confidentiality of Alcohol and Drug Abuse Patient Records regulations: The Federal rules restrict any use of the information to criminally investigate or prosecute any alcohol or drug abuse patient.[facility]In the event this information is protected by the Federal Confidentiality of Alcohol and Drug Abuse Patient Records regulations: The Federal rules restrict any use of the information to criminally investigate or prosecute any alcohol or drug abuse patient.[facility]In the event this information is protected by the Federal Confidentiality of Alcohol and Drug Abuse Patient Records regulations: The Federal rules restrict any use of the information to criminally investigate or prosecute any alcohol or drug abuse patient.[facility]In the event this information is protected by the Federal Confidentiality of Alcohol and Drug Abuse Patient Records regulations: The Federal rules restrict any use of the information to criminally investigate or prosecute any alcohol or drug abuse patient.[facility]In the event this information is protected by the Federal Confidentiality of Alcohol and Drug Abuse Patient Records regulations: The Federal rules restrict any use of the information to criminally investigate or prosecute any alcohol or drug abuse patient.[facility]In the event this information is protected by the Federal Confidentiality of Alcohol and Drug Abuse Patient Records regulations: The Federal rules restrict any use of the information to criminally investigate or prosecute any alcohol or drug abuse patient.[facility]In the event this information is protected by the Federal Confidentiality of Alcohol and Drug Abuse Patient Records regulations: The Federal rules restrict any use of the information to criminally investigate or prosecute any alcohol or drug abuse patient.[facility]In the event this information is protected by the Federal Confidentiality of Alcohol and Drug Abuse Patient Records regulations: The Federal rules restrict any use of the information to criminally investigate or prosecute any alcohol or drug abuse patient.[facility]In the event this information is protected by the Federal Confidentiality of Alcohol and Drug Abuse Patient Records regulations: The Federal rules restrict any use of the information to criminally investigate or prosecute any alcohol or drug abuse patient.[facility]In the event this information is protected by the Federal Confidentiality of Alcohol and Drug Abuse Patient Records regulations: The Federal rules restrict any use of the information to criminally investigate or prosecute any alcohol or drug abuse patient.[facility]In the event this information is protected by the Federal Confidentiality of Alcohol and Drug Abuse Patient Records regulations: The Federal rules restrict any use of the information to criminally investigate or prosecute any alcohol or drug abuse patient.[facility] CenterIn the event this information is protected by the Federal Confidentiality of Alcohol and Drug Abuse Patient Records regulations: The Federal rules restrict any use of the information to criminally investigate or prosecute any alcohol or drug abuse patient.[facility] CenterIn the event this information is protected by the Federal Confidentiality of Alcohol and Drug Abuse Patient Records regulations: The Federal rules restrict any use of the information to criminally investigate or prosecute any alcohol or drug abuse patient.[facility] CenterIn the event this information is protected by the Federal Confidentiality of Alcohol and Drug Abuse Patient Records regulations: The Federal rules restrict any use of the information to criminally investigate or prosecute any alcohol or drug abuse patient.[facility] CenterIn the event this information is protected by the Federal Confidentiality of Alcohol and Drug Abuse Patient Records regulations: The Federal rules restrict any use of the information to criminally investigate or prosecute any alcohol or drug abuse patient.[facility] CenterIn the event this information is protected by the Federal Confidentiality of Alcohol and Drug Abuse Patient Records regulations: The Federal rules restrict any use of the information to criminally investigate or prosecute any alcohol or drug abuse patient.[facility] CenterIn the event this information is protected by the Federal Confidentiality of Alcohol and Drug Abuse Patient Records regulations: The Federal rules restrict any use of the information to criminally investigate or prosecute any alcohol or drug abuse patient.[facility] CenterIn the event this information is protected by the Federal Confidentiality of Alcohol and Drug Abuse Patient Records regulations: The Federal rules restrict any use of the information to criminally investigate or prosecute any alcohol or drug abuse patient.[facility] CenterIn the event this information is protected by the Federal Confidentiality of Alcohol and Drug Abuse Patient Records regulations: The Federal rules restrict any use of the information to criminally investigate or prosecute any alcohol or drug abuse patient.[facility] CenterIn the event this information is protected by the Federal Confidentiality of Alcohol and Drug Abuse Patient Records regulations: The Federal rules restrict any use of the information to criminally investigate or prosecute any alcohol or drug abuse patient.[facility] CenterIn the event this information is protected by the Federal Confidentiality of Alcohol and Drug Abuse Patient Records regulations: The Federal rules restrict any use of the information to criminally investigate or prosecute any alcohol or drug abuse patient.[facility] CenterIn the event this information is protected by the Federal Confidentiality of Alcohol and Drug Abuse Patient Records regulations: The Federal rules restrict any use of the information to criminally investigate or prosecute any alcohol or drug abuse patient.[facility] CenterIn the event this information is protected by the Federal Confidentiality of Alcohol and Drug Abuse Patient Records regulations: The Federal rules restrict any use of the information to criminally investigate or prosecute any alcohol or drug abuse patient.[facility] CenterIn the event this information is protected by the Federal Confidentiality of Alcohol and Drug Abuse Patient Records regulations: The Federal rules restrict any use of the information to criminally investigate or prosecute any alcohol or drug abuse patient.[facility] CenterIn the event this information is protected by the Federal Confidentiality of Alcohol and Drug Abuse Patient Records regulations: The Federal rules restrict any use of the information to criminally investigate or prosecute any alcohol or drug abuse patient.[facility] CenterIn the event this information is protected by the Federal Confidentiality of Alcohol and Drug Abuse Patient Records regulations: The Federal rules restrict any use of the information to criminally investigate or prosecute any alcohol or drug abuse patient.[facility] CenterIn the event this information is protected by the Federal Confidentiality of Alcohol and Drug Abuse Patient Records regulations: The Federal rules restrict any use of the information to criminally investigate or prosecute any alcohol or drug abuse patient.[facility] CenterIn the event this information is protected by the Federal Confidentiality of Alcohol and Drug Abuse Patient Records regulations: The Federal rules restrict any use of the information to criminally investigate or prosecute any alcohol or drug abuse patient.[facility] CenterIn the event this information is protected by the Federal Confidentiality of Alcohol and Drug Abuse Patient Records regulations: The Federal rules restrict any use of the information to criminally investigate or prosecute any alcohol or drug abuse patient.[facility] CenterIn the event this information is protected by the Federal Confidentiality of Alcohol and Drug Abuse Patient Records regulations: The Federal rules restrict any use of the information to criminally investigate or prosecute any alcohol or drug abuse patient.[facility] CenterIn the event this information is protected by the Federal Confidentiality of Alcohol and Drug Abuse Patient Records regulations: The Federal rules restrict any use of the information to criminally investigate or prosecute any alcohol or drug abuse patient.[facility] CenterIn the event this information is protected by the Federal Confidentiality of Alcohol and Drug Abuse Patient Records regulations: The Federal rules restrict any use of the information to criminally investigate or prosecute any alcohol or drug abuse patient.[facility] CenterIn the event this information is protected by the Federal Confidentiality of Alcohol and Drug Abuse Patient Records regulations: The Federal rules restrict any use of the information to criminally investigate or prosecute any alcohol or drug abuse patient.[facility] CenterIn the event this information is protected by the Federal Confidentiality of Alcohol and Drug Abuse Patient Records regulations: The Federal rules restrict any use of the information to criminally investigate or prosecute any alcohol or drug abuse patient.[facility] CenterIn the event this information is protected by the Federal Confidentiality of Alcohol and Drug Abuse Patient Records regulations: The Federal rules restrict any use of the information to criminally investigate or prosecute any alcohol or drug abuse patient.[facility] CenterIn the event this information is protected by the Federal Confidentiality of Alcohol and Drug Abuse Patient Records regulations: The Federal rules restrict any use of the information to criminally investigate or prosecute any alcohol or drug abuse patient.[facility] CenterIn the event this information is protected by the Federal Confidentiality of Alcohol and Drug Abuse Patient Records regulations: The Federal rules restrict any use of the information to criminally investigate or prosecute any alcohol or drug abuse patient.[facility] CenterIn the event this information is protected by the Federal Confidentiality of Alcohol and Drug Abuse Patient Records regulations: The Federal rules restrict any use of the information to criminally investigate or prosecute any alcohol or drug abuse patient.[facility] CenterIn the event this information is protected by the Federal Confidentiality of Alcohol and Drug Abuse Patient Records regulations: The Federal rules restrict any use of the information to criminally investigate or prosecute any alcohol or drug abuse patient.[facility] CenterIn the event this information is protected by the Federal Confidentiality of Alcohol and Drug Abuse Patient Records regulations: The Federal rules restrict any use of the information to criminally investigate or prosecute any alcohol or drug abuse patient.[facility] the event this information is protected by the Federal Confidentiality of Alcohol and Drug Abuse Patient Records regulations: The Federal rules restrict any use of the information to criminally investigate or prosecute any alcohol or drug abuse patient.[facility] CenterIn the event this information is protected by the Federal Confidentiality of Alcohol and Drug Abuse Patient Records regulations: The Federal rules restrict any use of the information to criminally investigate or prosecute any alcohol or drug abuse patient.[facility] CenterIn the event this information is protected by the Federal Confidentiality of Alcohol and Drug Abuse Patient Records regulations: The Federal rules restrict any use of the information to criminally investigate or prosecute any alcohol or drug abuse patient.[facility] the event this information is protected by the Federal Confidentiality of Alcohol and Drug Abuse Patient Records regulations: The Federal rules restrict any use of the information to criminally investigate or prosecute any alcohol or drug abuse patient.[facility] CenterIn the event this information is protected by the Federal Confidentiality of Alcohol and Drug Abuse Patient Records regulations: The Federal rules restrict any use of the information to criminally investigate or prosecute any alcohol or drug abuse patient.[facility] CenterIn the event this information is protected by the Federal Confidentiality of Alcohol and Drug Abuse Patient Records regulations: The Federal rules restrict any use of the information to criminally investigate or prosecute any alcohol or drug abuse patient.[facility] CenterIn the event this information is protected by the Federal Confidentiality of Alcohol and Drug Abuse Patient Records regulations: The Federal rules restrict any use of the information to criminally investigate or prosecute any alcohol or drug abuse patient.[facility] CenterIn the event this information is protected by the Federal Confidentiality of Alcohol and Drug Abuse Patient Records regulations: The Federal rules restrict any use of the information to criminally investigate or prosecute any alcohol or drug abuse patient.[facility] CenterIn the event this information is protected by the Federal Confidentiality of Alcohol and Drug Abuse Patient Records regulations: The Federal rules restrict any use of the information to criminally investigate or prosecute any alcohol or drug abuse patient.[facility] CenterIn the event this information is protected by the Federal Confidentiality of Alcohol and Drug Abuse Patient Records regulations: The Federal rules restrict any use of the information to criminally investigate or prosecute any alcohol or drug abuse patient.[facility] CenterIn the event this information is protected by the Federal Confidentiality of Alcohol and Drug Abuse Patient Records regulations: The Federal rules restrict any use of the information to criminally investigate or prosecute any alcohol or drug abuse patient.[facility] CenterIn the event this information is protected by the Federal Confidentiality of Alcohol and Drug Abuse Patient Records regulations: The Federal rules restrict any use of the information to criminally investigate or prosecute any alcohol or drug abuse patient.[facility] CenterIn the event this information is protected by the Federal Confidentiality of Alcohol and Drug Abuse Patient Records regulations: The Federal rules restrict any use of the information to criminally investigate or prosecute any alcohol or drug abuse patient.[facility] CenterIn the event this information is protected by the Federal Confidentiality of Alcohol and Drug Abuse Patient Records regulations: The Federal rules restrict any use of the information to criminally investigate or prosecute any alcohol or drug abuse patient.[facility] CenterIn the event this information is protected by the Federal Confidentiality of Alcohol and Drug Abuse Patient Records regulations: The Federal rules restrict any use of the information to criminally investigate or prosecute any alcohol or drug abuse patient.[facility]In the event this information is protected by the Federal Confidentiality of Alcohol and Drug Abuse Patient Records regulations: The Federal rules restrict any use of the information to criminally investigate or prosecute any alcohol or drug abuse patient.[facility] CenterIn the event this information is protected by the Federal Confidentiality of Alcohol and Drug Abuse Patient Records regulations: The Federal rules restrict any use of the information to criminally investigate or prosecute any alcohol or drug abuse patient.[facility] CenterIn the event this information is protected by the Federal Confidentiality of Alcohol and Drug Abuse Patient Records regulations: The Federal rules restrict any use of the information to criminally investigate or prosecute any alcohol or drug abuse patient.[facility] CenterIn the event this information is protected by the Federal Confidentiality of Alcohol and Drug Abuse Patient Records regulations: The Federal rules restrict any use of the information to criminally investigate or prosecute any alcohol or drug abuse patient.[facility] CenterIn the event this information is protected by the Federal Confidentiality of Alcohol and Drug Abuse Patient Records regulations: The Federal rules restrict any use of the information to criminally investigate or prosecute any alcohol or drug abuse patient.[facility] CenterIn the event this information is protected by the Federal Confidentiality of Alcohol and Drug Abuse Patient Records regulations: The Federal rules restrict any use of the information to criminally investigate or prosecute any alcohol or drug abuse patient.[facility] CenterIn the event this information is protected by the Federal Confidentiality of Alcohol and Drug Abuse Patient Records regulations: The Federal rules restrict any use of the information to criminally investigate or prosecute any alcohol or drug abuse patient.[facility] CenterIn the event this information is protected by the Federal Confidentiality of Alcohol and Drug Abuse Patient Records regulations: The Federal rules restrict any use of the information to criminally investigate or prosecute any alcohol or drug abuse patient.[facility] CenterIn the event this information is protected by the Federal Confidentiality of Alcohol and Drug Abuse Patient Records regulations: The Federal rules restrict any use of the information to criminally investigate or prosecute any alcohol or drug abuse patient.[facility] CenterIn the event this information is protected by the Federal Confidentiality of Alcohol and Drug Abuse Patient Records regulations: The Federal rules restrict any use of the information to criminally investigate or prosecute any alcohol or drug abuse patient.[facility] CenterIn the event this information is protected by the Federal Confidentiality of Alcohol and Drug Abuse Patient Records regulations: The Federal rules restrict any use of the information to criminally investigate or prosecute any alcohol or drug abuse patient.[facility] CenterIn the event this information is protected by the Federal Confidentiality of Alcohol and Drug Abuse Patient Records regulations: The Federal rules restrict any use of the information to criminally investigate or prosecute any alcohol or drug abuse patient.[facility] CenterIn the event this information is protected by the Federal Confidentiality of Alcohol and Drug Abuse Patient Records regulations: The Federal rules restrict any use of the information to criminally investigate or prosecute any alcohol or drug abuse patient.[facility] CenterIn the event this information is protected by the Federal Confidentiality of Alcohol and Drug Abuse Patient Records regulations: The Federal rules restrict any use of the information to criminally investigate or prosecute any alcohol or drug abuse patient.[facility] CenterIn the event this information is protected by the Federal Confidentiality of Alcohol and Drug Abuse Patient Records regulations: The Federal rules restrict any use of the information to criminally investigate or prosecute any alcohol or drug abuse patient.[facility] CenterIn the event this information is protected by the Federal Confidentiality of Alcohol and Drug Abuse Patient Records regulations: The Federal rules restrict any use of the information to criminally investigate or prosecute any alcohol or drug abuse patient.[facility] CenterIn the event this information is protected by the Federal Confidentiality of Alcohol and Drug Abuse Patient Records regulations: The Federal rules restrict any use of the information to criminally investigate or prosecute any alcohol or drug abuse patient.[facility] CenterIn the event this information is protected by the Federal Confidentiality of Alcohol and Drug Abuse Patient Records regulations: The Federal rules restrict any use of the information to criminally investigate or prosecute any alcohol or drug abuse patient.[facility] CenterIn the event this information is protected by the Federal Confidentiality of Alcohol and Drug Abuse Patient Records regulations: The Federal rules restrict any use of the information to criminally investigate or prosecute any alcohol or drug abuse patient.[facility] CenterIn the event this information is protected by the Federal Confidentiality of Alcohol and Drug Abuse Patient Records regulations: The Federal rules restrict any use of the information to criminally investigate or prosecute any alcohol or drug abuse patient.[facility] CenterIn the event this information is protected by the Federal Confidentiality of Alcohol and Drug Abuse Patient Records regulations: The Federal rules restrict any use of the information to criminally investigate or prosecute any alcohol or drug abuse patient.[facility] CenterIn the event this information is protected by the Federal Confidentiality of Alcohol and Drug Abuse Patient Records regulations: The Federal rules restrict any use of the information to criminally investigate or prosecute any alcohol or drug abuse patient.[facility] CenterIn the event this information is protected by the Federal Confidentiality of Alcohol and Drug Abuse Patient Records regulations: The Federal rules restrict any use of the information to criminally investigate or prosecute any alcohol or drug abuse patient.[facility] CenterIn the event this information is protected by the Federal Confidentiality of Alcohol and Drug Abuse Patient Records regulations: The Federal rules restrict any use of the information to criminally investigate or prosecute any alcohol or drug abuse patient.[facility] CenterIn the event this information is protected by the Federal Confidentiality of Alcohol and Drug Abuse Patient Records regulations: The Federal rules restrict any use of the information to criminally investigate or prosecute any alcohol or drug abuse patient.[facility] CenterIn the event this information is protected by the Federal Confidentiality of Alcohol and Drug Abuse Patient Records regulations: The Federal rules restrict any use of the information to criminally investigate or prosecute any alcohol or drug abuse patient.[facility]In the event this information is protected by the Federal Confidentiality of Alcohol and Drug Abuse Patient Records regulations: The Federal rules restrict any use of the information to criminally investigate or prosecute any alcohol or drug abuse patient.[facility]In the event this information is protected by the Federal Confidentiality of Alcohol and Drug Abuse Patient Records regulations: The Federal rules restrict any use of the information to criminally investigate or prosecute any alcohol or drug abuse patient.[facility] CenterIn the event this information is protected by the Federal Confidentiality of Alcohol and Drug Abuse Patient Records regulations: The Federal rules restrict any use of the information to criminally investigate or prosecute any alcohol or drug abuse patient.[facility] CenterIn the event this information is protected by the Federal Confidentiality of Alcohol and Drug Abuse Patient Records regulations: The Federal rules restrict any use of the information to criminally investigate or prosecute any alcohol or drug abuse patient.[facility]In the event this information is protected by the Federal Confidentiality of Alcohol and Drug Abuse Patient Records regulations: The Federal rules restrict any use of the information to criminally investigate or prosecute any alcohol or drug abuse patient.[facility] CenterIn the event this information is protected by the Federal Confidentiality of Alcohol and Drug Abuse Patient Records regulations: The Federal rules restrict any use of the information to criminally investigate or prosecute any alcohol or drug abuse patient.[facility] CenterIn the event this information is protected by the Federal Confidentiality of Alcohol and Drug Abuse Patient Records regulations: The Federal rules restrict any use of the information to criminally investigate or prosecute any alcohol or drug abuse patient.[facility] CenterIn the event this information is protected by the Federal Confidentiality of Alcohol and Drug Abuse Patient Records regulations: The Federal rules restrict any use of the information to criminally investigate or prosecute any alcohol or drug abuse patient.[facility] CenterIn the event this information is protected by the Federal Confidentiality of Alcohol and Drug Abuse Patient Records regulations: The Federal rules restrict any use of the information to criminally investigate or prosecute any alcohol or drug abuse patient.[facility] the event this information is protected by the Federal Confidentiality of Alcohol and Drug Abuse Patient Records regulations: The Federal rules restrict any use of the information to criminally investigate or prosecute any alcohol or drug abuse patient.[facility] CenterIn the event this information is protected by the Federal Confidentiality of Alcohol and Drug Abuse Patient Records regulations: The Federal rules restrict any use of the information to criminally investigate or prosecute any alcohol or drug abuse patient.[facility] CenterIn the event this information is protected by the Federal Confidentiality of Alcohol and Drug Abuse Patient Records regulations: The Federal rules restrict any use of the information to criminally investigate or prosecute any alcohol or drug abuse patient.[facility] the event this information is protected by the Federal Confidentiality of Alcohol and Drug Abuse Patient Records regulations: The Federal rules restrict any use of the information to criminally investigate or prosecute any alcohol or drug abuse patient.[facility] CenterIn the event this information is protected by the Federal Confidentiality of Alcohol and Drug Abuse Patient Records regulations: The Federal rules restrict any use of the information to criminally investigate or prosecute any alcohol or drug abuse patient.[facility] CenterIn the event this information is protected by the Federal Confidentiality of Alcohol and Drug Abuse Patient Records regulations: The Federal rules restrict any use of the information to criminally investigate or prosecute any alcohol or drug abuse patient.[facility] CenterIn the event this information is protected by the Federal Confidentiality of Alcohol and Drug Abuse Patient Records regulations: The Federal rules restrict any use of the information to criminally investigate or prosecute any alcohol or drug abuse patient.[facility] CenterIn the event this information is protected by the Federal Confidentiality of Alcohol and Drug Abuse Patient Records regulations: The Federal rules restrict any use of the information to criminally investigate or prosecute any alcohol or drug abuse patient.[facility] CenterIn the event this information is protected by the Federal Confidentiality of Alcohol and Drug Abuse Patient Records regulations: The Federal rules restrict any use of the information to criminally investigate or prosecute any alcohol or drug abuse patient.[facility] CenterIn the event this information is protected by the Federal Confidentiality of Alcohol and Drug Abuse Patient Records regulations: The Federal rules restrict any use of the information to criminally investigate or prosecute any alcohol or drug abuse patient.[facility] CenterIn the event this information is protected by the Federal Confidentiality of Alcohol and Drug Abuse Patient Records regulations: The Federal rules restrict any use of the information to criminally investigate or prosecute any alcohol or drug abuse patient.[facility] CenterIn the event this information is protected by the Federal Confidentiality of Alcohol and Drug Abuse Patient Records regulations: The Federal rules restrict any use of the information to criminally investigate or prosecute any alcohol or drug abuse patient.[facility] CenterIn the event this information is protected by the Federal Confidentiality of Alcohol and Drug Abuse Patient Records regulations: The Federal rules restrict any use of the information to criminally investigate or prosecute any alcohol or drug abuse patient.[facility] CenterIn the event this information is protected by the Federal Confidentiality of Alcohol and Drug Abuse Patient Records regulations: The Federal rules restrict any use of the information to criminally investigate or prosecute any alcohol or drug abuse patient.[facility] CenterIn the event this information is protected by the Federal Confidentiality of Alcohol and Drug Abuse Patient Records regulations: The Federal rules restrict any use of the information to criminally investigate or prosecute any alcohol or drug abuse patient.[facility] CenterIn the event this information is protected by the Federal Confidentiality of Alcohol and Drug Abuse Patient Records regulations: The Federal rules restrict any use of the information to criminally investigate or prosecute any alcohol or drug abuse patient.[facility] CenterIn the event this information is protected by the Federal Confidentiality of Alcohol and Drug Abuse Patient Records regulations: The Federal rules restrict any use of the information to criminally investigate or prosecute any alcohol or drug abuse patient.[facility] CenterIn the event this information is protected by the Federal Confidentiality of Alcohol and Drug Abuse Patient Records regulations: The Federal rules restrict any use of the information to criminally investigate or prosecute any alcohol or drug abuse patient.[facility] CenterIn the event this information is protected by the Federal Confidentiality of Alcohol and Drug Abuse Patient Records regulations: The Federal rules restrict any use of the information to criminally investigate or prosecute any alcohol or drug abuse patient.[facility] CenterIn the event this information is protected by the Federal Confidentiality of Alcohol and Drug Abuse Patient Records regulations: The Federal rules restrict any use of the information to criminally investigate or prosecute any alcohol or drug abuse patient.[facility] CenterIn the event this information is protected by the Federal Confidentiality of Alcohol and Drug Abuse Patient Records regulations: The Federal rules restrict any use of the information to criminally investigate or prosecute any alcohol or drug abuse patient.[facility] CenterIn the event this information is protected by the Federal Confidentiality of Alcohol and Drug Abuse Patient Records regulations: The Federal rules restrict any use of the information to criminally investigate or prosecute any alcohol or drug abuse patient.[facility] CenterIn the event this information is protected by the Federal Confidentiality of Alcohol and Drug Abuse Patient Records regulations: The Federal rules restrict any use of the information to criminally investigate or prosecute any alcohol or drug abuse patient.[facility] CenterIn the event this information is protected by the Federal Confidentiality of Alcohol and Drug Abuse Patient Records regulations: The Federal rules restrict any use of the information to criminally investigate or prosecute any alcohol or drug abuse patient.[facility] CenterIn the event this information is protected by the Federal Confidentiality of Alcohol and Drug Abuse Patient Records regulations: The Federal rules restrict any use of the information to criminally investigate or prosecute any alcohol or drug abuse patient.[facility] CenterIn the event this information is protected by the Federal Confidentiality of Alcohol and Drug Abuse Patient Records regulations: The Federal rules restrict any use of the information to criminally investigate or prosecute any alcohol or drug abuse patient.[facility] CenterIn the event this information is protected by the Federal Confidentiality of Alcohol and Drug Abuse Patient Records regulations: The Federal rules restrict any use of the information to criminally investigate or prosecute any alcohol or drug abuse patient.[facility] CenterIn the event this information is protected by the Federal Confidentiality of Alcohol and Drug Abuse Patient Records regulations: The Federal rules restrict any use of the information to criminally investigate or prosecute any alcohol or drug abuse patient.[facility] CenterIn the event this information is protected by the Federal Confidentiality of Alcohol and Drug Abuse Patient Records regulations: The Federal rules restrict any use of the information to criminally investigate or prosecute any alcohol or drug abuse patient.[facility] CenterIn the event this information is protected by the Federal Confidentiality of Alcohol and Drug Abuse Patient Records regulations: The Federal rules restrict any use of the information to criminally investigate or prosecute any alcohol or drug abuse patient.[facility] CenterIn the event this information is protected by the Federal Confidentiality of Alcohol and Drug Abuse Patient Records regulations: The Federal rules restrict any use of the information to criminally investigate or prosecute any alcohol or drug abuse patient.[facility] CenterIn the event this information is protected by the Federal Confidentiality of Alcohol and Drug Abuse Patient Records regulations: The Federal rules restrict any use of the information to criminally investigate or prosecute any alcohol or drug abuse patient.[facility] CenterIn the event this information is protected by the Federal Confidentiality of Alcohol and Drug Abuse Patient Records regulations: The Federal rules restrict any use of the information to criminally investigate or prosecute any alcohol or drug abuse patient.[facility] CenterIn the event this information is protected by the Federal Confidentiality of Alcohol and Drug Abuse Patient Records regulations: The Federal rules restrict any use of the information to criminally investigate or prosecute any alcohol or drug abuse patient.[facility] CenterIn the event this information is protected by the Federal Confidentiality of Alcohol and Drug Abuse Patient Records regulations: The Federal rules restrict any use of the information to criminally investigate or prosecute any alcohol or drug abuse patient.[facility] CenterIn the event this information is protected by the Federal Confidentiality of Alcohol and Drug Abuse Patient Records regulations: The Federal rules restrict any use of the information to criminally investigate or prosecute any alcohol or drug abuse patient.[facility] CenterIn the event this information is protected by the Federal Confidentiality of Alcohol and Drug Abuse Patient Records regulations: The Federal rules restrict any use of the information to criminally investigate or prosecute any alcohol or drug abuse patient.[facility] CenterIn the event this information is protected by the Federal Confidentiality of Alcohol and Drug Abuse Patient Records regulations: The Federal rules restrict any use of the information to criminally investigate or prosecute any alcohol or drug abuse patient.[facility] CenterIn the event this information is protected by the Federal Confidentiality of Alcohol and Drug Abuse Patient Records regulations: The Federal rules restrict any use of the information to criminally investigate or prosecute any alcohol or drug abuse patient.[facility] CenterIn the event this information is protected by the Federal Confidentiality of Alcohol and Drug Abuse Patient Records regulations: The Federal rules restrict any use of the information to criminally investigate or prosecute any alcohol or drug abuse patient.[facility] CenterIn the event this information is protected by the Federal Confidentiality of Alcohol and Drug Abuse Patient Records regulations: The Federal rules restrict any use of the information to criminally investigate or prosecute any alcohol or drug abuse patient.[facility] CenterIn the event this information is protected by the Federal Confidentiality of Alcohol and Drug Abuse Patient Records regulations: The Federal rules restrict any use of the information to criminally investigate or prosecute any alcohol or drug abuse patient.[facility] CenterIn the event this information is protected by the Federal Confidentiality of Alcohol and Drug Abuse Patient Records regulations: The Federal rules restrict any use of the information to criminally investigate or prosecute any alcohol or drug abuse patient.[facility] CenterIn the event this information is protected by the Federal Confidentiality of Alcohol and Drug Abuse Patient Records regulations: The Federal rules restrict any use of the information to criminally investigate or prosecute any alcohol or drug abuse patient.[facility] CenterIn the event this information is protected by the Federal Confidentiality of Alcohol and Drug Abuse Patient Records regulations: The Federal rules restrict any use of the information to criminally investigate or prosecute any alcohol or drug abuse patient.[facility] CenterIn the event this information is protected by the Federal Confidentiality of Alcohol and Drug Abuse Patient Records regulations: The Federal rules restrict any use of the information to criminally investigate or prosecute any alcohol or drug abuse patient.[facility] CenterIn the event this information is protected by the Federal Confidentiality of Alcohol and Drug Abuse Patient Records regulations: The Federal rules restrict any use of the information to criminally investigate or prosecute any alcohol or drug abuse patient.[facility] CenterIn the event this information is protected by the Federal Confidentiality of Alcohol and Drug Abuse Patient Records regulations: The Federal rules restrict any use of the information to criminally investigate or prosecute any alcohol or drug abuse patient.[facility] CenterIn the event this information is protected by the Federal Confidentiality of Alcohol and Drug Abuse Patient Records regulations: The Federal rules restrict any use of the information to criminally investigate or prosecute any alcohol or drug abuse patient.[facility] CenterIn the event this information is protected by the Federal Confidentiality of Alcohol and Drug Abuse Patient Records regulations: The Federal rules restrict any use of the information to criminally investigate or prosecute any alcohol or drug abuse patient.[facility] the event this information is protected by the Federal Confidentiality of Alcohol and Drug Abuse Patient Records regulations: The Federal rules restrict any use of the information to criminally investigate or prosecute any alcohol or drug abuse patient.[facility] CenterIn the event this information is protected by the Federal Confidentiality of Alcohol and Drug Abuse Patient Records regulations: The Federal rules restrict any use of the information to criminally investigate or prosecute any alcohol or drug abuse patient.[facility] CenterIn the event this information is protected by the Federal Confidentiality of Alcohol and Drug Abuse Patient Records regulations: The Federal rules restrict any use of the information to criminally investigate or prosecute any alcohol or drug abuse patient.[facility]In the event this information is protected by the Federal Confidentiality of Alcohol and Drug Abuse Patient Records regulations: The Federal rules restrict any use of the information to criminally investigate or prosecute any alcohol or drug abuse patient.[facility] CenterIn the event this information is protected by the Federal Confidentiality of Alcohol and Drug Abuse Patient Records regulations: The Federal rules restrict any use of the information to criminally investigate or prosecute any alcohol or drug abuse patient.[facility] CenterIn the event this information is protected by the Federal Confidentiality of Alcohol and Drug Abuse Patient Records regulations: The Federal rules restrict any use of the information to criminally investigate or prosecute any alcohol or drug abuse patient.[facility] CenterIn the event this information is protected by the Federal Confidentiality of Alcohol and Drug Abuse Patient Records regulations: The Federal rules restrict any use of the information to criminally investigate or prosecute any alcohol or drug abuse patient.[facility] CenterIn the event this information is protected by the Federal Confidentiality of Alcohol and Drug Abuse Patient Records regulations: The Federal rules restrict any use of the information to criminally investigate or prosecute any alcohol or drug abuse patient.[facility] CenterIn the event this information is protected by the Federal Confidentiality of Alcohol and Drug Abuse Patient Records regulations: The Federal rules restrict any use of the information to criminally investigate or prosecute any alcohol or drug abuse patient.[facility] CenterIn the event this information is protected by the Federal Confidentiality of Alcohol and Drug Abuse Patient Records regulations: The Federal rules restrict any use of the information to criminally investigate or prosecute any alcohol or drug abuse patient.[facility] CenterIn the event this information is protected by the Federal Confidentiality of Alcohol and Drug Abuse Patient Records regulations: The Federal rules restrict any use of the information to criminally investigate or prosecute any alcohol or drug abuse patient.[facility] CenterIn the event this information is protected by the Federal Confidentiality of Alcohol and Drug Abuse Patient Records regulations: The Federal rules restrict any use of the information to criminally investigate or prosecute any alcohol or drug abuse patient.[facility] CenterIn the event this information is protected by the Federal Confidentiality of Alcohol and Drug Abuse Patient Records regulations: The Federal rules restrict any use of the information to criminally investigate or prosecute any alcohol or drug abuse patient.[facility]In the event this information is protected by the Federal Confidentiality of Alcohol and Drug Abuse Patient Records regulations: The Federal rules restrict any use of the information to criminally investigate or prosecute any alcohol or drug abuse patient.[facility] CenterIn the event this information is protected by the Federal Confidentiality of Alcohol and Drug Abuse Patient Records regulations: The Federal rules restrict any use of the information to criminally investigate or prosecute any alcohol or drug abuse patient.[facility] CenterIn the event this information is protected by the Federal Confidentiality of Alcohol and Drug Abuse Patient Records regulations: The Federal rules restrict any use of the information to criminally investigate or prosecute any alcohol or drug abuse patient.[facility] CenterIn the event this information is protected by the Federal Confidentiality of Alcohol and Drug Abuse Patient Records regulations: The Federal rules restrict any use of the information to criminally investigate or prosecute any alcohol or drug abuse patient.[facility]In the event this information is protected by the Federal Confidentiality of Alcohol and Drug Abuse Patient Records regulations: The Federal rules restrict any use of the information to criminally investigate or prosecute any alcohol or drug abuse patient.[facility] CenterIn the event this information is protected by the Federal Confidentiality of Alcohol and Drug Abuse Patient Records regulations: The Federal rules restrict any use of the information to criminally investigate or prosecute any alcohol or drug abuse patient.[facility] CenterIn the event this information is protected by the Federal Confidentiality of Alcohol and Drug Abuse Patient Records regulations: The Federal rules restrict any use of the information to criminally investigate or prosecute any alcohol or drug abuse patient.[facility] CenterIn the event this information is protected by the Federal Confidentiality of Alcohol and Drug Abuse Patient Records regulations: The Federal rules restrict any use of the information to criminally investigate or prosecute any alcohol or drug abuse patient.[facility] CenterIn the event this information is protected by the Federal Confidentiality of Alcohol and Drug Abuse Patient Records regulations: The Federal rules restrict any use of the information to criminally investigate or prosecute any alcohol or drug abuse patient.[facility] CenterIn the event this information is protected by the Federal Confidentiality of Alcohol and Drug Abuse Patient Records regulations: The Federal rules restrict any use of the information to criminally investigate or prosecute any alcohol or drug abuse patient.[facility] CenterIn the event this information is protected by the Federal Confidentiality of Alcohol and Drug Abuse Patient Records regulations: The Federal rules restrict any use of the information to criminally investigate or prosecute any alcohol or drug abuse patient.[facility] CenterIn the event this information is protected by the Federal Confidentiality of Alcohol and Drug Abuse Patient Records regulations: The Federal rules restrict any use of the information to criminally investigate or prosecute any alcohol or drug abuse patient.[facility] CenterIn the event this information is protected by the Federal Confidentiality of Alcohol and Drug Abuse Patient Records regulations: The Federal rules restrict any use of the information to criminally investigate or prosecute any alcohol or drug abuse patient.[facility] CenterIn the event this information is protected by the Federal Confidentiality of Alcohol and Drug Abuse Patient Records regulations: The Federal rules restrict any use of the information to criminally investigate or prosecute any alcohol or drug abuse patient.[facility] CenterIn the event this information is protected by the Federal Confidentiality of Alcohol and Drug Abuse Patient Records regulations: The Federal rules restrict any use of the information to criminally investigate or prosecute any alcohol or drug abuse patient.[facility] CenterIn the event this information is protected by the Federal Confidentiality of Alcohol and Drug Abuse Patient Records regulations: The Federal rules restrict any use of the information to criminally investigate or prosecute any alcohol or drug abuse patient.[facility] CenterIn the event this information is protected by the Federal Confidentiality of Alcohol and Drug Abuse Patient Records regulations: The Federal rules restrict any use of the information to criminally investigate or prosecute any alcohol or drug abuse patient.[facility] CenterIn the event this information is protected by the Federal Confidentiality of Alcohol and Drug Abuse Patient Records regulations: The Federal rules restrict any use of the information to criminally investigate or prosecute any alcohol or drug abuse patient.[facility] CenterIn the event this information is protected by the Federal Confidentiality of Alcohol and Drug Abuse Patient Records regulations: The Federal rules restrict any use of the information to criminally investigate or prosecute any alcohol or drug abuse patient.[facility] CenterIn the event this information is protected by the Federal Confidentiality of Alcohol and Drug Abuse Patient Records regulations: The Federal rules restrict any use of the information to criminally investigate or prosecute any alcohol or drug abuse patient.[facility] CenterIn the event this information is protected by the Federal Confidentiality of Alcohol and Drug Abuse Patient Records regulations: The Federal rules restrict any use of the information to criminally investigate or prosecute any alcohol or drug abuse patient.[facility] CenterIn the event this information is protected by the Federal Confidentiality of Alcohol and Drug Abuse Patient Records regulations: The Federal rules restrict any use of the information to criminally investigate or prosecute any alcohol or drug abuse patient.[facility] CenterIn the event this information is protected by the Federal Confidentiality of Alcohol and Drug Abuse Patient Records regulations: The Federal rules restrict any use of the information to criminally investigate or prosecute any alcohol or drug abuse patient.[facility] CenterIn the event this information is protected by the Federal Confidentiality of Alcohol and Drug Abuse Patient Records regulations: The Federal rules restrict any use of the information to criminally investigate or prosecute any alcohol or drug abuse patient.[facility] CenterIn the event this information is protected by the Federal Confidentiality of Alcohol and Drug Abuse Patient Records regulations: The Federal rules restrict any use of the information to criminally investigate or prosecute any alcohol or drug abuse patient.[facility] CenterIn the event this information is protected by the Federal Confidentiality of Alcohol and Drug Abuse Patient Records regulations: The Federal rules restrict any use of the information to criminally investigate or prosecute any alcohol or drug abuse patient.[facility] CenterIn the event this information is protected by the Federal Confidentiality of Alcohol and Drug Abuse Patient Records regulations: The Federal rules restrict any use of the information to criminally investigate or prosecute any alcohol or drug abuse patient.[facility] CenterIn the event this information is protected by the Federal Confidentiality of Alcohol and Drug Abuse Patient Records regulations: The Federal rules restrict any use of the information to criminally investigate or prosecute any alcohol or drug abuse patient.[facility] CenterIn the event this information is protected by the Federal Confidentiality of Alcohol and Drug Abuse Patient Records regulations: The Federal rules restrict any use of the information to criminally investigate or prosecute any alcohol or drug abuse patient.[facility] CenterIn the event this information is protected by the Federal Confidentiality of Alcohol and Drug Abuse Patient Records regulations: The Federal rules restrict any use of the information to criminally investigate or prosecute any alcohol or drug abuse patient.[facility] CenterIn the event this information is protected by the Federal Confidentiality of Alcohol and Drug Abuse Patient Records regulations: The Federal rules restrict any use of the information to criminally investigate or prosecute any alcohol or drug abuse patient.[facility] CenterIn the event this information is protected by the Federal Confidentiality of Alcohol and Drug Abuse Patient Records regulations: The Federal rules restrict any use of the information to criminally investigate or prosecute any alcohol or drug abuse patient.[facility] CenterIn the event this information is protected by the Federal Confidentiality of Alcohol and Drug Abuse Patient Records regulations: The Federal rules restrict any use of the information to criminally investigate or prosecute any alcohol or drug abuse patient.[facility] CenterIn the event this information is protected by the Federal Confidentiality of Alcohol and Drug Abuse Patient Records regulations: The Federal rules restrict any use of the information to criminally investigate or prosecute any alcohol or drug abuse patient.[facility] CenterIn the event this information is protected by the Federal Confidentiality of Alcohol and Drug Abuse Patient Records regulations: The Federal rules restrict any use of the information to criminally investigate or prosecute any alcohol or drug abuse patient.[facility] CenterIn the event this information is protected by the Federal Confidentiality of Alcohol and Drug Abuse Patient Records regulations: The Federal rules restrict any use of the information to criminally investigate or prosecute any alcohol or drug abuse patient.[facility] CenterIn the event this information is protected by the Federal Confidentiality of Alcohol and Drug Abuse Patient Records regulations: The Federal rules restrict any use of the information to criminally investigate or prosecute any alcohol or drug abuse patient.[facility] the event this information is protected by the Federal Confidentiality of Alcohol and Drug Abuse Patient Records regulations: The Federal rules restrict any use of the information to criminally investigate or prosecute any alcohol or drug abuse patient.[facility] CenterIn the event this information is protected by the Federal Confidentiality of Alcohol and Drug Abuse Patient Records regulations: The Federal rules restrict any use of the information to criminally investigate or prosecute any alcohol or drug abuse patient.[facility] CenterIn the event this information is protected by the Federal Confidentiality of Alcohol and Drug Abuse Patient Records regulations: The Federal rules restrict any use of the information to criminally investigate or prosecute any alcohol or drug abuse patient.[facility]In the event this information is protected by the Federal Confidentiality of Alcohol and Drug Abuse Patient Records regulations: The Federal rules restrict any use of the information to criminally investigate or prosecute any alcohol or drug abuse patient.[facility] CenterIn the event this information is protected by the Federal Confidentiality of Alcohol and Drug Abuse Patient Records regulations: The Federal rules restrict any use of the information to criminally investigate or prosecute any alcohol or drug abuse patient.[facility] CenterIn the event this information is protected by the Federal Confidentiality of Alcohol and Drug Abuse Patient Records regulations: The Federal rules restrict any use of the information to criminally investigate or prosecute any alcohol or drug abuse patient.[facility] CenterIn the event this information is protected by the Federal Confidentiality of Alcohol and Drug Abuse Patient Records regulations: The Federal rules restrict any use of the information to criminally investigate or prosecute any alcohol or drug abuse patient.[facility] CenterIn the event this information is protected by the Federal Confidentiality of Alcohol and Drug Abuse Patient Records regulations: The Federal rules restrict any use of the information to criminally investigate or prosecute any alcohol or drug abuse patient.[facility] CenterIn the event this information is protected by the Federal Confidentiality of Alcohol and Drug Abuse Patient Records regulations: The Federal rules restrict any use of the information to criminally investigate or prosecute any alcohol or drug abuse patient.[facility] CenterIn the event this information is protected by the Federal Confidentiality of Alcohol and Drug Abuse Patient Records regulations: The Federal rules restrict any use of the information to criminally investigate or prosecute any alcohol or drug abuse patient.[facility] CenterIn the event this information is protected by the Federal Confidentiality of Alcohol and Drug Abuse Patient Records regulations: The Federal rules restrict any use of the information to criminally investigate or prosecute any alcohol or drug abuse patient.[facility] CenterIn the event this information is protected by the Federal Confidentiality of Alcohol and Drug Abuse Patient Records regulations: The Federal rules restrict any use of the information to criminally investigate or prosecute any alcohol or drug abuse patient.[facility] CenterIn the event this information is protected by the Federal Confidentiality of Alcohol and Drug Abuse Patient Records regulations: The Federal rules restrict any use of the information to criminally investigate or prosecute any alcohol or drug abuse patient.[facility] CenterIn the event this information is protected by the Federal Confidentiality of Alcohol and Drug Abuse Patient Records regulations: The Federal rules restrict any use of the information to criminally investigate or prosecute any alcohol or drug abuse patient.[facility] CenterIn the event this information is protected by the Federal Confidentiality of Alcohol and Drug Abuse Patient Records regulations: The Federal rules restrict any use of the information to criminally investigate or prosecute any alcohol or drug abuse patient.[facility] CenterIn the event this information is protected by the Federal Confidentiality of Alcohol and Drug Abuse Patient Records regulations: The Federal rules restrict any use of the information to criminally investigate or prosecute any alcohol or drug abuse patient.[facility] CenterIn the event this information is protected by the Federal Confidentiality of Alcohol and Drug Abuse Patient Records regulations: The Federal rules restrict any use of the information to criminally investigate or prosecute any alcohol or drug abuse patient.[facility] CenterIn the event this information is protected by the Federal Confidentiality of Alcohol and Drug Abuse Patient Records regulations: The Federal rules restrict any use of the information to criminally investigate or prosecute any alcohol or drug abuse patient.[facility] CenterIn the event this information is protected by the Federal Confidentiality of Alcohol and Drug Abuse Patient Records regulations: The Federal rules restrict any use of the information to criminally investigate or prosecute any alcohol or drug abuse patient.[facility] CenterIn the event this information is protected by the Federal Confidentiality of Alcohol and Drug Abuse Patient Records regulations: The Federal rules restrict any use of the information to criminally investigate or prosecute any alcohol or drug abuse patient.[facility] CenterIn the event this information is protected by the Federal Confidentiality of Alcohol and Drug Abuse Patient Records regulations: The Federal rules restrict any use of the information to criminally investigate or prosecute any alcohol or drug abuse patient.[facility] CenterIn the event this information is protected by the Federal Confidentiality of Alcohol and Drug Abuse Patient Records regulations: The Federal rules restrict any use of the information to criminally investigate or prosecute any alcohol or drug abuse patient.[facility] CenterIn the event this information is protected by the Federal Confidentiality of Alcohol and Drug Abuse Patient Records regulations: The Federal rules restrict any use of the information to criminally investigate or prosecute any alcohol or drug abuse patient.[facility] CenterIn the event this information is protected by the Federal Confidentiality of Alcohol and Drug Abuse Patient Records regulations: The Federal rules restrict any use of the information to criminally investigate or prosecute any alcohol or drug abuse patient.[facility] CenterIn the event this information is protected by the Federal Confidentiality of Alcohol and Drug Abuse Patient Records regulations: The Federal rules restrict any use of the information to criminally investigate or prosecute any alcohol or drug abuse patient.[facility] CenterIn the event this information is protected by the Federal Confidentiality of Alcohol and Drug Abuse Patient Records regulations: The Federal rules restrict any use of the information to criminally investigate or prosecute any alcohol or drug abuse patient.[facility] CenterIn the event this information is protected by the Federal Confidentiality of Alcohol and Drug Abuse Patient Records regulations: The Federal rules restrict any use of the information to criminally investigate or prosecute any alcohol or drug abuse patient.[facility] CenterIn the event this information is protected by the Federal Confidentiality of Alcohol and Drug Abuse Patient Records regulations: The Federal rules restrict any use of the information to criminally investigate or prosecute any alcohol or drug abuse patient.[facility] CenterIn the event this information is protected by the Federal Confidentiality of Alcohol and Drug Abuse Patient Records regulations: The Federal rules restrict any use of the information to criminally investigate or prosecute any alcohol or drug abuse patient.[facility] CenterIn the event this information is protected by the Federal Confidentiality of Alcohol and Drug Abuse Patient Records regulations: The Federal rules restrict any use of the information to criminally investigate or prosecute any alcohol or drug abuse patient.[facility] Care Teams (unrecognized sec tion and content) Neuro Ophthalmologist Relationship Specialty Start Date End Date Mitch Mejia PCP - General Family Practice 01/19/16 Meenu Garay MD, [address] [place] [address] Physician Radiation Oncology 09/06/16 Carla Almonte, RN Specialty Dandy Tender Oncology 07/06/17 Meenu Garay MD, [address] [place] [address] Physician Radiation Oncology 04/12/19 Chanelle Westfall, PRINCE [address] [place] [address] Specialty Dandy Tender Hematology/Oncology 03/12/21 Neuro Ophthalmologist Relationship Specialty Start Date End Date Mitch Mejia PCP - General Family Practice 01/19/16 Meenu Garay MD, [address] [place] [address] Physician Radiation Oncology 09/06/16 Carla Almonte, RN Specialty Dandy Tender Oncology 07/06/17 Meenu Garay MD, [address] [place] [address] Physician Radiation Oncology 04/12/19 Chanelle Westfall, PRINCE [address] [place] [address] Specialty Dandy Tender Hematology/Oncology 03/12/21 Neuro Ophthalmologist Relationship Specialty Start Date End Date Mitch Mejia PCP - General Family Practice 01/19/16 Meenu Garay MD, [address] [place] [address] Physician Radiation Oncology 09/06/16 Carla Almonte RN Specialty Dandy Tender Oncology 07/06/17 Meenu Garay MD, [address] [place] [address] Physician Radiation Oncology 04/12/19 Chanelle Westfall, PRINCE [address] [place] [address] Specialty Dandy Tender Hematology/Oncology 03/12/21 Neuro Ophthalmologist Relationship Specialty Start Date End Date Mitch Mejia PCP - General Family Practice 01/19/16 Meenu Garay MD, [address] [place] [address] Physician Radiation Oncology 09/06/16 Carla Almonte RN Specialty Dandy Tender Oncology 07/06/17 Meenu Garay MD, [address] [place] [address] Physician Radiation Oncology 04/12/19 Chanelle Westfall, PRINCE [address] [place] [address] Specialty Dandy Tender Hematology/Oncology 03/12/21 Neuro Ophthalmologist Relationship Specialty Start Date End Date Mitch Mejia PCP - General Family Practice 01/19/16 Meenu Garay MD, [address] [place] [address] Physician Radiation Oncology 09/06/16 Carla Almonte RN Specialty Dandy Tender Oncology 07/06/17 Meenu Garay MD, [address] [place] [address] Physician Radiation Oncology 04/12/19 Chanelle Westfall, RN [address] [place] [address] Specialty Dandy Tender Hematology/Oncology 03/12/21 Neuro Ophthalmologist Relationship Specialty Start Date End Date JonatanmarilyambrocioMitch PCP - General Family Practice 01/19/16 Meenu Garay MD, [address] [place] [address] Physician Radiation Oncology 09/06/16 Carla Almonte RN Specialty Dandy Tender Oncology 07/06/17 Meenu Garay MD, [address] [place] [address] Physician Radiation Oncology 04/12/19 Chanelle Westfall, PRINCE [address] [place] [address] Specialty Dandy Tender Hematology/Oncology 03/12/21 Neuro Ophthalmologist Relationship Specialty Start Date End Date JonatanmarilyambrocioMitch PCP - General Family Practice 01/19/16 Meenu Garay MD, [address] [place] [address] Physician Radiation Oncology 09/06/16 Carla Almonte RN Specialty Dandy Tender Oncology 07/06/17 Meenu Garay MD, [address] [place] [address] Physician Radiation Oncology 04/12/19 Chanelle Westfall RN [address] [place] [address] Specialty Dandy Tender Hematology/Oncology 03/12/21 Neuro Ophthalmologist Relationship Specialty Start Date End Date Mitch Mejia PCP - General Family Practice 01/19/16 Meenu Garay MD, [address] [place] [address] Physician Radiation Oncology 09/06/16 Carla Almonte, RN Specialty Dandy Tender Oncology 07/06/17 Meenu Garay MD, [address] [place] [address] Physician Radiation Oncology 04/12/19 Chanelle Westfall, PRINCE [address] [place] [address] Specialty Dandy Tender Hematology/Oncology 03/12/21 Neuro Ophthalmologist Relationship Specialty Start Date End Date Mitch Mejia PCP - General Family Practice 01/19/16 Meenu Garay MD, [address] [place] [address] Physician Radiation Oncology 09/06/16 Carla Almonte, RN Specialty Dandy Tender Oncology 07/06/17 Meenu Garay MD, [address] [place] [address] Physician Radiation Oncology 04/12/19 Chanelle Westfall, PRINCE [address] [place] [address] Specialty Dandy Tender Hematology/Oncology 03/12/21 Neuro Ophthalmologist Relationship Specialty Start Date End Date Mitch Mejia PCP - General Family Practice 01/19/16 Meenu Garay MD, [address] [place] [address] Physician Radiation Oncology 09/06/16 Carla Almonte RN Specialty Dandy Tender Oncology 07/06/17 Meenu Garay MD, [address] [place] [address] Physician Radiation Oncology 04/12/19 Chanelle Westfall, PRINCE [address] [place] [address] Specialty Dandy Tender Hematology/Oncology 03/12/21 Neuro Ophthalmologist Relationship Specialty Start Date End Date Mitch Mejia PCP - General Family Practice 01/19/16 Meenu Garay MD, [address] [place] [address] Physician Radiation Oncology 09/06/16 Carla Almonte RN Specialty Dandy Tender Oncology 07/06/17 Meenu Garay MD, [address] [place] [address] Physician Radiation Oncology 04/12/19 Chanelle Westfall, PRINCE [address] [place] [address] Specialty Dandy Tender Hematology/Oncology 03/12/21 Neuro Ophthalmologist Relationship Specialty Start Date End Date Mitch Mejia PCP - General Family Practice 01/19/16 Meenu Garay MD, [address] [place] [address] Physician Radiation Oncology 09/06/16 Carla Almonte RN Specialty Dandy Tender Oncology 07/06/17 Meenu Garay MD, [address] [place] [address] Physician Radiation Oncology 04/12/19 Chanelle Westfall, RN [address] [place] [address] Specialty Dandy Tender Hematology/Oncology 03/12/21 Neuro Ophthalmologist Relationship Specialty Start Date End Date Mitch Mejia PCP - General Family Practice 01/19/16 Meenu Garay MD, [address] [place] [address] Physician Radiation Oncology 09/06/16 Carla Almonte RN Specialty Dandy Tender Oncology 07/06/17 Meenu Garay MD, [address] [place] [address] Physician Radiation Oncology 04/12/19 Chanelle Westfall, PRINCE [address] [place] [address] Specialty Dandy Tender Hematology/Oncology 03/12/21 Neuro Ophthalmologist Relationship Specialty Start Date End Date Mitch Mejia PCP - General Family Practice 01/19/16 Meenu Garay MD, [address] [place] [address] Physician Radiation Oncology 09/06/16 Carla Almonte RN Specialty Dandy Tender Oncology 07/06/17 Meenu Garay MD, [address] [place] [address] Physician Radiation Oncology 04/12/19 Chanelle Westfall, PRINCE [address] [place] [address] Specialty Dandy Tender Hematology/Oncology 03/12/21 Neuro Ophthalmologist Relationship Specialty Start Date End Date Mitch Mejia PCP - General Family Practice 01/19/16 Meenu Garay MD, [address] [place] [address] Physician Radiation Oncology 09/06/16 Carla Almonte, RN Specialty Dandy Tender Oncology 07/06/17 Meenu Garay MD, [address] [place] [address] Physician Radiation Oncology 04/12/19 Chanelle Westfall, PRINCE [address] [place] [address] Specialty Dandy Tender Hematology/Oncology 03/12/21 Neuro Ophthalmologist Relationship Specialty Start Date End Date Mitch Mejia PCP - General Family Practice 01/19/16 Meenu Garay MD, [address] [place] [address] Physician Radiation Oncology 09/06/16 Carla Almonte, RN Specialty Dandy Tender Oncology 07/06/17 Meenu Garay MD, [address] [place] [address] Physician Radiation Oncology 04/12/19 Chanelle Westfall, PRINCE [address] [place] [address] Specialty Dandy Tender Hematology/Oncology 03/12/21 Neuro Ophthalmologist Relationship Specialty Start Date End Date Mitch Mejia PCP - General Family Practice 01/19/16 Meenu Garay MD, [address] [place] [address] Physician Radiation Oncology 09/06/16 Carla Almonte RN Specialty Dandy Tender Oncology 07/06/17 Meenu Garay MD, [address] [place] [address] Physician Radiation Oncology 04/12/19 Chanelle Westfall, PRINCE [address] [place] [address] Specialty Dandy Tender Hematology/Oncology 03/12/21 Neuro Ophthalmologist Relationship Specialty Start Date End Date Mitch Mejia PCP - General Family Practice 01/19/16 Meenu Garay MD, [address] [place] [address] Physician Radiation Oncology 09/06/16 Carla Almonte RN Specialty Dandy Tender Oncology 07/06/17 Meenu Garay MD, [address] [place] [address] Physician Radiation Oncology 04/12/19 Chanelle Westfall RN [address] [place] [address] Specialty Dandy Tender Hematology/Oncology 03/12/21 Neuro Ophthalmologist Relationship Specialty Start Date End Date Mitch Mejia PCP - General Family Practice 01/19/16 Meenu Garay MD, [address] [place] [address] Physician Radiation Oncology 09/06/16 Carla Almonte RN Specialty Dandy Tender Oncology 07/06/17 Meenu Garay MD, [address] [place] [address] Physician Radiation Oncology 04/12/19 Chanelle Westfall, RN [address] [place] [address] Specialty Dandy Tender Hematology/Oncology 03/12/21 Neuro Ophthalmologist Relationship Specialty Start Date End Date JonatanmarilyambrocioMitch PCP - General Family Practice 01/19/16 Meenu Garay MD, [address] [place] [address] Physician Radiation Oncology 09/06/16 Carla Almonte, RN Specialty Dandy Tender Oncology 07/06/17 Meenu Garay MD, [address] [place] [address] Physician Radiation Oncology 04/12/19 Chanelle Westfall, PRINCE [address] [place] [address] Specialty Dandy Tender Hematology/Oncology 03/12/21 Neuro Ophthalmologist Relationship Specialty Start Date End Date Mitch Mejia PCP - General Family Practice 01/19/16 Meenu Garay MD, [address] [place] [address] Physician Radiation Oncology 09/06/16 Carla Almonte RN Specialty Dandy Tender Oncology 07/06/17 Meenu Garay MD, [address] [place] [address] Physician Radiation Oncology 04/12/19 Chanelle Westfall, PRINCE [address] [place] [address] Specialty Dandy Tender Hematology/Oncology 03/12/21 Neuro Ophthalmologist Relationship Specialty Start Date End Date Mitch Mejia PCP - General Family Practice 01/19/16 Meenu Garay MD, [address] [place] [address] Physician Radiation Oncology 09/06/16 Carla Almonte, RN Specialty Dandy Tender Oncology 07/06/17 Meenu Garay MD, [address] [place] [address] Physician Radiation Oncology 04/12/19 Chanelle Westfall, PRINCE [address] [place] [address] Specialty Dandy Tender Hematology/Oncology 03/12/21 Neuro Ophthalmologist Relationship Specialty Start Date End Date Mitch Mejia PCP - General Family Practice 01/19/16 Meenu Garay MD, [address] [place] [address] Physician Radiation Oncology 09/06/16 Carla Almonte, RN Specialty Dandy Tender Oncology 07/06/17 Meenu Garay MD, [address] [place] [address] Physician Radiation Oncology 04/12/19 Chanelle Westfall, PRINCE [address] [place] [address] Specialty Dandy Tender Hematology/Oncology 03/12/21 Neuro Ophthalmologist Relationship Specialty Start Date End Date Mitch Mejia PCP - General Family Practice 01/19/16 Meenu Garay MD, [address] [place] [address] Physician Radiation Oncology 09/06/16 Carla Almonte RN Specialty Dandy Tender Oncology 07/06/17 Meenu Garay MD, [address] [place] [address] Physician Radiation Oncology 04/12/19 Chanelle Westfall, PRINCE [address] [place] [address] Specialty Dandy Tender Hematology/Oncology 03/12/21 Neuro Ophthalmologist Relationship Specialty Start Date End Date Mitch Mejia PCP - General Family Practice 01/19/16 Meenu Garay MD, [address] [place] [address] Physician Radiation Oncology 09/06/16 Carla Almonte RN Specialty Dandy Tender Oncology 07/06/17 Meenu Garay MD, [address] [place] [address] Physician Radiation Oncology 04/12/19 Chanelle Westfall, PRINCE [address] [place] [address] Specialty Dandy Tender Hematology/Oncology 03/12/21 Neuro Ophthalmologist Relationship Specialty Start Date End Date Mitch Mejia PCP - General Family Practice 01/19/16 Meenu Garay MD, [address] [place] [address] Physician Radiation Oncology 09/06/16 Doup, Carla, RN Specialty Dandy Tender Oncology 07/06/17 Meenu Garay MD, [address] [place] [address] Physician Radiation Oncology 04/12/19 Chanelle Westfall RN [address] [place] [address] Specialty Dandy Tender Hematology/Oncology 03/12/21 Neuro Ophthalmologist Relationship Specialty Start Date End Date Mitch Mejia PCP - General Family Practice 01/19/16 Meenu Garay MD, [address] [place] [address] Physician Radiation Oncology 09/06/16 Carla Almonte RN Specialty Dandy Tender Oncology 07/06/17 Meenu Garay MD, [address] [place] [address] Physician Radiation Oncology 04/12/19 Chanelle Westfall RN [address] [place] [address] Specialty Dandy Tender Hematology/Oncology 03/12/21 Neuro Ophthalmologist Relationship Specialty Start Date End Date Mitch Mejia PCP - General Family Medicine 01/19/16 Meenu Garay MD, [address] [place] [address] Physician Radiation Oncology 09/06/16 Carla Almonte RN Specialty Dandy Tender Oncology 07/06/17 Meenu Garay MD, [address] [place] [address] Physician Radiation Oncology 04/12/19 Chanelle Westfall RN [address] [place] [address] Specialty Dandy Tender Hematology/Oncology 03/12/21 Neuro Ophthalmologist Relationship Specialty Start Date End Date Mitch Mejia PCP - General Family Medicine 01/19/16 Meenu Garay MD, [address] [place] [address] Physician Radiation Oncology 09/06/16 Carla Almonte RN Specialty Dandy Tender Oncology 07/06/17 Meenu Garay MD, [address] [place] [address] Physician Radiation Oncology 04/12/19 Chanelle Westfall RN [address] [place] [address] Specialty Dandy Tender Hematology/Oncology 03/12/21 Neuro Ophthalmologist Relationship Specialty Start Date End Date Mitch Mejia PCP - General Family Medicine 01/19/16 Meenu Garay MD, [address] [place] [address] Physician Radiation Oncology 09/06/16 Carla Almonte RN Specialty Dandy Tender Oncology 07/06/17 Meenu Garay MD, [address] [place] [address] Physician Radiation Oncology 04/12/19 Chanelle Westfall RN [address] [place] [address] Specialty Dandy Tender Hematology/Oncology 03/12/21 Neuro Ophthalmologist Relationship Specialty Start Date End Date Mitch Mejia PCP - General Family Medicine 01/19/16 Meenu Garay MD, [address] [place] [address] Physician Radiation Oncology 09/06/16 Carla Almonte, RN Specialty Dandy Tender Oncology 07/06/17 Meenu Garay MD, [address] [place] [address] Physician Radiation Oncology 04/12/19 Chanelle Westfall, PRINCE [address] [place] [address] Specialty Dandy Tender Hematology/Oncology 03/12/21 Neuro Ophthalmologist Relationship Specialty Start Date End Date Mitch Mejia PCP - General Family Medicine 01/19/16 Meenu Garay MD, [address] [place] [address] Physician Radiation Oncology 09/06/16 Carla Almonte RN Specialty Dandy Tender Oncology 07/06/17 Meenu Garay MD, [address] [place] [address] Physician Radiation Oncology 04/12/19 Chanelle Westfall, PRINCE [address] [place] [address] Specialty Dandy Tender Hematology/Oncology 03/12/21 Neuro Ophthalmologist Relationship Specialty Start Date End Date Mitch Mejia PCP - General Family Medicine 01/19/16 Meenu Garay MD, [address] [place] [address] Physician Radiation Oncology 09/06/16 Carla Almonte RN Specialty Dandy Tender Oncology 07/06/17 Meenu Garay MD, [address] [place] [address] Physician Radiation Oncology 04/12/19 Chanelle Westfall RN [address] [place] [address] Specialty Dandy Tender Hematology/Oncology 03/12/21 Neuro Ophthalmologist Relationship Specialty Start Date End Date Mitch Mejia PCP - General Family Medicine 01/19/16 Meenu Garay MD, [address] [place] [address] Physician Radiation Oncology 09/06/16 Carla Almonte RN Specialty Dandy Tender Oncology 07/06/17 Meenu Garay MD, [address] [place] [address] Physician Radiation Oncology 04/12/19 Chanelle Westfall RN [address] [place] [address] Specialty Dandy Tender Hematology/Oncology 03/12/21 Neuro Ophthalmologist Relationship Specialty Start Date End Date Mitch Mejia PCP - General Family Medicine 01/19/16 Meenu Garay MD, [address] [place] [address] Physician Radiation Oncology 09/06/16 Carla Almonte RN Specialty Dandy Tender Oncology 07/06/17 Meenu Garay MD, [address] [place] [address] Physician Radiation Oncology 04/12/19 Chanelle Westfall, PRINCE [address] [place] [address] Specialty Dandy Tender Hematology/Oncology 03/12/21 Neuro Ophthalmologist Relationship Specialty Start Date End Date Mitch Mejia PCP - General Family Medicine 01/19/16 Meenu Garay MD, [address] [place] [address] Physician Radiation Oncology 09/06/16 Carla Almonte RN Specialty Dandy Tender Oncology 07/06/17 Meenu Garay MD, [address] [place] [address] Physician Radiation Oncology 04/12/19 Chanelle Westfall RN [address] [place] [address] Specialty Dandy Tender Hematology/Oncology 03/12/21 Neuro Ophthalmologist Relationship Specialty Start Date End Date Mitch Mejia PCP - General Family Medicine 01/19/16 Meenu Garay MD, [address] [place] [address] Physician Radiation Oncology 09/06/16 Carla Almonte RN Specialty Dandy Tender Oncology 07/06/17 Meenu Garay MD, [address] [place] [address] Physician Radiation Oncology 04/12/19 Chanelle Westfall, PRINCE [address] [place] [address] Specialty Dandy Tender Hematology/Oncology 03/12/21 Neuro Ophthalmologist Relationship Specialty Start Date End Date Mitch Mejia PCP - General Family Medicine 01/19/16 Meenu Garay MD, [address] [place] [address] Physician Radiation Oncology 09/06/16 Carla Almonte, RN Specialty Dandy Tender Oncology 07/06/17 Meenu Garay MD, [address] [place] [address] Physician Radiation Oncology 04/12/19 Chanelle Westfall, PRINCE [address] [place] [address] Specialty Dandy Tender Hematology/Oncology 03/12/21 Neuro Ophthalmologist Relationship Specialty Start Date End Date Mitch Mejia PCP - General Family Medicine 01/19/16 Meenu Garay MD, [address] [place] [address] Physician Radiation Oncology 09/06/16 Carla Almonte, RN Specialty Dandy Tender Oncology 07/06/17 Meenu Garay MD, [address] [place] [address] Physician Radiation Oncology 04/12/19 Chanelle Westfall, PRINCE [address] [place] [address] Specialty Dandy Tender Hematology/Oncology 03/12/21 Neuro Ophthalmologist Relationship Specialty Start Date End Date Mitch Mejia PCP - General Family Medicine 01/19/16 Meenu Garay MD, [address] [place] [address] Physician Radiation Oncology 09/06/16 Carla Almonte RN Specialty Dandy Tender Oncology 07/06/17 Meenu Garay MD, [address] [place] [address] Physician Radiation Oncology 04/12/19 Chanelle Westfall, RN [address] [place] [address] Specialty Dandy Tender Hematology/Oncology 03/12/21 Neuro Ophthalmologist Relationship Specialty Start Date End Date Mitch Mejia PCP - General Family Medicine 01/19/16 Meenu Garay MD, [address] [place] [address] Physician Radiation Oncology 09/06/16 Carla Almonte RN Specialty Dandy Tender Oncology 07/06/17 Meenu Garay MD, [address] [place] [address] Physician Radiation Oncology 04/12/19 Chanelle Westfall, PRINCE [address] [place] [address] Specialty Dandy Tender Hematology/Oncology 03/12/21 Neuro Ophthalmologist Relationship Specialty Start Date End Date Mitch Mejia PCP - General Family Medicine 01/19/16 Meenu Garay MD, [address] [place] [address] Physician Radiation Oncology 09/06/16 Carla Almonte RN Specialty Dandy Tender Oncology 07/06/17 Meenu Garay MD, [address] [place] [address] Physician Radiation Oncology 04/12/19 Chanelle Westfall, RN [address] [place] [address] Specialty Dandy Tender Hematology/Oncology 03/12/21 Neuro Ophthalmologist Relationship Specialty Start Date End Date Mitch Mejia PCP - General Family Medicine 01/19/16 Meenu Garay MD, [address] [place] [address] Physician Radiation Oncology 09/06/16 Carla Almonte RN Specialty Dandy Tender Oncology 07/06/17 Meenu Garay MD, [address] [place] [address] Physician Radiation Oncology 04/12/19 Chanelle Westfall RN [address] [place] [address] Specialty Dandy Tender Hematology/Oncology 03/12/21 Neuro Ophthalmologist Relationship Specialty Start Date End Date Mitch Mejia PCP - General Family Medicine 01/19/16 Meenu Garay MD, [address] [place] [address] Physician Radiation Oncology 09/06/16 Carla Almonte RN Specialty Dandy Tender Oncology 07/06/17 Meenu Garay MD, [address] [place] [address] Physician Radiation Oncology 04/12/19 Chanelle Westfall, RN [address] [place] [address] Specialty Dandy Tender Hematology/Oncology 03/12/21 Team Status: Active Member Role Status Dates Dr. Mitch Mejia MD Family Provider Active Dr. Mitch Mejia MD Primary Care Provider Active Team Status: Inactive Member Role Status Dates Dr. Mitch Mejia MD Primary Care Provider, Referrin g Provider Active Dr. Mayco Galeano MD Attending Provider Active Team Status: Active Member Role Status Dates Dr. Mitch Mejia MD Primary Care Provider Active Dr. Mayco Galeano MD Attending Provider Active Team Status: Inactive Member Role Status Dates Dr. Mitch Mejia MD Primary Care Provider Active Caity Cote DOCUMENTATION SPEC, DOCUMENTATION SPEC-C Attending Provider Active Neuro Ophthalmologist Relationship Specialty Start Date End Date Mitch Mejia PCP - General Family Medicine 01/19/16 Meenu Garay MD, [address] [place] [address] Physician Radiation Oncology 09/06/16 Carla Almonte RN Specialty Dandy Tender Oncology 07/06/17 Meenu Graay MD, [address] [place] [address] Physician Radiation Oncology 04/12/19 Chanelle Westfall, PRINCE [address] [place] [address] Specialty Dandy Tender Hematology/Oncology 03/12/21 Neuro Ophthalmologist Relationship Specialty Start Date End Date Mitch Mejia PCP - General Family Medicine 01/19/16 Meenu Garay MD, [address] [place] [address] Physician Radiation Oncology 09/06/16 Carla Almonte RN Specialty Dandy Tender Oncology 07/06/17 Meenu Garay MD, [address] [place] [address] Physician Radiation Oncology 04/12/19 Chanelle Westfall, PRINCE [address] [place] [address] Specialty Dandy Tender Hematology/Oncology 03/12/21 Neuro Ophthalmologist Relationship Specialty Start Date End Date Mitch Mejia PCP - General Family Medicine 01/19/16 Meenu Garay MD, [address] [place] [address] Physician Radiation Oncology 09/06/16 Carla Almonte RN Specialty Dandy Tender Oncology 07/06/17 Meenu Garay MD, [address] [place] [address] Physician Radiation Oncology 04/12/19 Chanelle Westfall RN [address] [place] [address] Specialty Dandy Tender Hematology/Oncology 03/12/21 Neuro Ophthalmologist Relationship Specialty Start Date End Date Mitch Mejia PCP - General Family Medicine 01/19/16 Meenu Garay MD, [address] [place] [address] Physician Radiation Oncology 09/06/16 Carla Almonte RN Specialty Dandy Tender Oncology 07/06/17 Meenu Garay MD, [address] [place] [address] Physician Radiation Oncology 04/12/19 Chanelle Westfall RN [address] [place] [address] Specialty Dandy Tender Hematology/Oncology 03/12/21 Neuro Ophthalmologist Relationship Specialty Start Date End Date Mitch Mejia PCP - General Family Medicine 01/19/16 Meenu Garay MD, [address] [place] [address] Physician Radiation Oncology 09/06/16 Carla Almonte, RN Specialty Dandy Tender Oncology 07/06/17 Meenu Garay MD, [address] [place] [address] Physician Radiation Oncology 04/12/19 Chanelle Westfall RN [address] [place] [address] Specialty Dandy Tender Hematology/Oncology 03/12/21 Neuro Ophthalmologist Relationship Specialty Start Date End Date Mitch Mejia PCP - General Family Medicine 01/19/16 Meenu Garay MD, [address] [place] [address] Physician Radiation Oncology 09/06/16 Carla Almonte, RN Specialty Dandy Tender Oncology 07/06/17 Meenu Garay MD, [address] [place] [address] Physician Radiation Oncology 04/12/19 Chanelle Westfall, PRINCE [address] [place] [address] Specialty Dandy Tender Hematology/Oncology 03/12/21 Mayco Galeano [address] [facility] [place] [address] Cardiology 08/18/22 Neuro Ophthalmologist Relationship Specialty Start Date End Date Mitch Mejia PCP - General Family Medicine 01/19/16 Meenu Garay MD, [address] [place] [address] Physician Radiation Oncology 09/06/16 Carla Almonte, RN Specialty Dandy Tender Oncology 07/06/17 Meenu Garay MD, [address] [place] [address] Physician Radiation Oncology 04/12/19 Chnaelle Westfall, PRINCE [address] [place] [address] Specialty Dandy Tender Hematology/Oncology 03/12/21 [place], Mayco S [address] [place] [address] Cardiology 08/18/22 Neuro Ophthalmologist Relationship Specialty Start Date End Date Mitch Mejia PCP - General Family Medicine 01/19/16 Meenu Garay MD, [address] [place] [address] Physician Radiation Oncology 09/06/16 Carla Almonte, RN Specialty Dandy Tender Oncology 07/06/17 Meenu Garay MD, [address] [place] [address] Physician Radiation Oncology 04/12/19 Chanelle Westfall, PRINCE [address] [place] [address] Specialty Dandy Tender Hematology/Oncology 03/12/21 [place], [place] S [address] [place] [address] Cardiology 08/18/22 Neuro Ophthalmologist Relationship Specialty Start Date End Date Mitch Mejia PCP - General Family Medicine 01/19/16 Meenu Garay MD, [address] [place] [address] Physician Radiation Oncology 09/06/16 Carla Almonte, RN Specialty Dandy Tender Oncology 07/06/17 Meenu Garay MD, [address] [place] [address] Physician Radiation Oncology 04/12/19 Chanelle Westfall, PRINCE [address] [place] [address] Specialty Dandy Tender Hematology/Oncology 03/12/21 [place], Mayco S [address] [place] [address] Cardiology 08/18/22 Neuro Ophthalmologist Relationship Specialty Start Date End Date Mitch Mejia PCP - General Family Medicine 01/19/16 Meenu Garay MD, [address] [place] [address] Physician Radiation Oncology 09/06/16 Carla Almonte, RN Specialty Dandy Tender Oncology 07/06/17 Meenu Garay MD, [address] [place] [address] Physician Radiation Oncology 04/12/19 Chanelle Westfall, PRINCE [address] [place] [address] Specialty Dandy Tender Hematology/Oncology 03/12/21 [place], [place] S [address] [place] [address] Cardiology 08/18/22 Neuro Ophthalmologist Relationship Specialty Start Date End Date Mitch Mejia PCP - General Family Medicine 01/19/16 Meenu Garay MD, [address] [place] [address] Physician Radiation Oncology 09/06/16 Carla Almonte, RN Specialty Dandy Tender Oncology 07/06/17 Meenu Garay MD, [address] [place] [address] Physician Radiation Oncology 04/12/19 Chanelle Westfall RN [address] [place] [address] Specialty Dandy Tender Hematology/Oncology 03/12/21 [place], Mayco S [address] [place] [address] Cardiology 08/18/22 Neuro Ophthalmologist Relationship Specialty Start Date End Date Mitch Mejia PCP - General Family Medicine 01/19/16 Meenu Garay MD, [address] [place] [address] Physician Radiation Oncology 09/06/16 Carla Almonte RN Specialty Dandy Tender Oncology 07/06/17 Meenu Garay MD, [address] [place] [address] Physician Radiation Oncology 04/12/19 Chanelle Westfall, PRINCE [address] [place] [address] Specialty Dandy Tender Hematology/Oncology 03/12/21 [place], [place] S [address] [place] [address] Cardiology 08/18/22 Neuro Ophthalmologist Relationship Specialty Start Date End Date Mitch Mejia PCP - General Family Medicine 01/19/16 Meenu Garay MD, [address] [place] [address] Physician Radiation Oncology 09/06/16 Carla Almonte, RN Specialty Dandy Tender Oncology 07/06/17 Meenu Garay MD, [address] [place] [address] Physician Radiation Oncology 04/12/19 Chanelle Westfall, PRINCE [address] [place] [address] Specialty Dandy Tender Hematology/Oncology 03/12/21 Mayco Galeano S [address] [facility] [place] [address] Cardiology 08/18/22 Neuro Ophthalmologist Relationship Specialty Start Date End Date Mitch Mejia PCP - General Family Medicine 01/19/16 Meenu Garay MD, [address] [place] [address] Physician Radiation Oncology 09/06/16 Carla Almonte, RN Specialty Dandy Tender Oncology 07/06/17 Meenu Garay MD, [address] [place] [address] Physician Radiation Oncology 04/12/19 Chanelle Westfall, RN [address] [place] [address] Specialty Dandy Tender Hematology/Oncology 03/12/21 [place], Mayco S [address] [place] [address] Cardiology 08/18/22 Neuro Ophthalmologist Relationship Specialty Start Date End Date Mitch Mejia PCP - General Family Medicine 01/19/16 Meenu Garay MD, [address] [place] [address] Physician Radiation Oncology 09/06/16 Carla Almonte, RN Specialty Dandy Tender Oncology 07/06/17 Meenu Garay MD, [address] [place] [address] Physician Radiation Oncology 04/12/19 Chanelle Westfall, PRINCE [address] [place] [address] Specialty Dandy Tender Hematology/Oncology 03/12/21 [place], Mayco S [address] [place] [address] Cardiology 08/18/22 Neuro Ophthalmologist Relationship Specialty Start Date End Date Mitch Mejia PCP - General Family Medicine 01/19/16 Meenu Garay MD, [address] [place] [address] Physician Radiation Oncology 09/06/16 Carla Almonte, RN Specialty Dandy Tender Oncology 07/06/17 Meenu Garay MD, [address] [place] [address] Physician Radiation Oncology 04/12/19 Chanelle Westfall, PRINCE [address] [place] [address] Specialty Dandy Tender Hematology/Oncology 03/12/21 [place], Mayco S [address] [place] [address] Cardiology 08/18/22 Neuro Ophthalmologist Relationship Specialty Start Date End Date Mitch Mejia PCP - General Family Medicine 01/19/16 Meenu Garay MD, [address] [place] [address] Physician Radiation Oncology 09/06/16 Carla Almonte, RN Specialty Dandy Tender Oncology 07/06/17 Meenu Garay MD, [address] [place] [address] Physician Radiation Oncology 04/12/19 Chanelle Westfall, PRINCE [address] [place] [address] Specialty Dandy Tender Hematology/Oncology 03/12/21 [place], Mayco S [address] [place] [address] Cardiology 08/18/22 Neuro Ophthalmologist Relationship Specialty Start Date End Date Mitch Mejia PCP - General Family Medicine 01/19/16 Meenu Garay MD, MD [address] [place] [address] Physician Radiation Oncology 09/06/16 Carla Almonte, RN Specialty Dandy Tender Oncology 07/06/17 Meenu Garay MD, [address] [place] [address] Physician Radiation Oncology 04/12/19 Chanelle Westfall RN [address] [place] [address] Specialty Dandy Tender Hematology/Oncology 03/12/21 [place], [place] S [address] [place] [address] Cardiology 08/18/22 Neuro Ophthalmologist Relationship Specialty Start Date End Date Mitch Mejia PCP - General Family Medicine 01/19/16 Meenu Garay MD, [address] [place] [address] Physician Radiation Oncology 09/06/16 Carla Almonte RN Specialty Dandy Tender Oncology 07/06/17 Meenu Garay MD, [address] [place] [address] Physician Radiation Oncology 04/12/19 Chanelle Westfall RN [address] [place] [address] Specialty Dandy Tender Hematology/Oncology 03/12/21 [place], [place] S [address] [place] [address] Cardiology 08/18/22 Neuro Ophthalmologist Relationship Specialty Start Date End Date Mitch Mejia PCP - General Family Medicine 01/19/16 Meenu Garay MD, MD [address] [place] [address] Physician Radiation Oncology 09/06/16 Carla Almonte RN Specialty Dandy Tender Oncology 07/06/17 Meenu Garay MD, [address] [place] [address] Physician Radiation Oncology 04/12/19 Chanelle Westfall, PRINCE [address] [place] [address] Specialty Dandy Tender Hematology/Oncology 03/12/21 12/13/22 Mayco Galeano [address] [place] [address] Cardiology 08/18/22 Neuro Ophthalmologist Relationship Specialty Start Date End Date Mitch Mejia PCP - General Family Medicine 01/19/16 Meenu Garay MD, [address] [place] [address] Physician Radiation Oncology 09/06/16 Carla Almonte RN Specialty Dandy Tender Oncology 07/06/17 Meenu Garay MD, MD [address] [place] [address] Physician Radiation Oncology 04/12/19 Mayco Galeano [address] [place] [address] Cardiology 08/18/22 Neuro Ophthalmologist Relationship Specialty Start Date End Date Mitch Mejia PCP - General Family Medicine 01/19/16 Meenu Garay MD, MD [address] [place] [address] Physician Radiation Oncology 09/06/16 Carla Almonte, RN Specialty Dandy Tender Oncology 07/06/17 Meenu Garay MD, MD [address] [place] [address] Physician Radiation Oncology 04/12/19 WaleskaIvan palaciol S [address] [place] [address] Cardiology 08/18/22 Neuro Ophthalmologist Relationship Specialty Start Date End Date Mitch Mejia PCP - General Family Medicine 01/19/16 Meenu Garay MD, [address] [place] [address] Physician Radiation Oncology 09/06/16 Carla Almonte RN Specialty Dandy Tender Oncology 07/06/17 Meenu Garay MD, [address] [place] [address] Physician Radiation Oncology 04/12/19 WaleskaMalcom palacioril S [address] [place] [address] Cardiology 08/18/22 Neuro Ophthalmologist Relationship Specialty Start Date End Date Mitch Mejia PCP - General Family Medicine 01/19/16 Meenu Garay MD, MD [address] [place] [address] Physician Radiation Oncology 09/06/16 Carla Almonte RN Specialty Dandy Tender Oncology 07/06/17 Meenu Garay MD, MD [address] [place] [address] Physician Radiation Oncology 04/12/19 WaleskaMalcom palacioril S [address] [place] [address] Cardiology 08/18/22 Neuro Ophthalmologist Relationship Specialty Start Date End Date Mitch Mejia PCP - General Family Medicine 01/19/16 Meenu Garay MD, MD [address] [place] [address] Physician Radiation Oncology 09/06/16 Carla Almonte RN Specialty Dandy Tender Oncology 07/06/17 Meenu Garay MD, MD [address] [place] [address] Physician Radiation Oncology 04/12/19 WaleskaMalcom palacioril S [address] [facility] [address] [place] [address] Cardiology 08/18/22 Neuro Ophthalmologist Relationship Specialty Start Date End Date Mitch Mejia PCP - General Family Medicine 01/19/16 Meenu Garay MD, MD [address] [place] [place] [address] Physician Radiation Oncology 09/06/16 Carla Almonte RN Specialty Dandy Tender Oncology 07/06/17 Meenu Garay MD, [address] [place] [address] Physician Radiation Oncology 04/12/19 Mayco Galeano [address] [place] [address] Cardiology 08/18/22 Team Status: Inactive Member Role Status Dates Dr. Mitch Mejia MD Primary Care Provider, Referrin g Provider Active Renetta Yang DOCUMENTATION SPEC, DOCUMENTATION SPEC-C Attending Provider Active Team Status: Inactive Member Role Status Dates Dr. Mitch Mejia MD Primary Care Provider Active Dr. Rip Rivers DO Attending Provider, Referring Prov ider Active Neuro Ophthalmologist Relationship Specialty Start Date End Date Mitch Mejia PCP - General Family Medicine 01/19/16 Meenu Garay MD, [address] [place] [address] Physician Radiation Oncology 09/06/16 Carla Almonte, RN Specialty Dandy Tender Oncology 07/06/17 Meenu Garay MD, [address] [place] [address] Physician Radiation Oncology 04/12/19 Mayco Galeano [address] [place] [address] Cardiology 08/18/22 Neuro Ophthalmologist Relationship Specialty Start Date End Date Mitch Mejia PCP - General Family Medicine 01/19/16 Meenu Garay MD, [address] [place] [address] Physician Radiation Oncology 09/06/16 Carla Almonte, RN Specialty Dandy Tender Oncology 07/06/17 Meenu Garay MD, MD [address] [place], [place] [address] Physician Radiation Oncology 04/12/19 [place] Mayco Gallardo [address] [place] [address], [place] [id number] Cardiology 08/18/22 Team Status: Active Member Role [...] Dr. Malika Garay DO Attending Provider Active Neuro Ophthalmologist Relationship Specialty Start Date End Date Mitch Mejia PCP - General Family Medicine 01/19/16 Meenu Garay MD, MD [address] [place], [place] [address] Physician Radiation Oncology 09/06/16 Carla Almonte, RN Specialty Dandy Tender Oncology 07/06/17 Meenu Garay MD, [address] [place], [place] [address] Physician Radiation Oncology 04/12/19 Mayco Galeano [address] [place], [place] [address] Cardiology 08/18/22 Neuro Ophthalmologist Relationship Specialty Start Date End Date Mitch Mejia PCP - General Family Medicine 01/19/16 Meenu Garay MD, MD [address] [place] [address] Physician Radiation Oncology 09/06/16 Carla Almonte RN Specialty Dandy Tender Oncology 07/06/17 Meenu Garay MD, [address] [place] [address] Physician Radiation Oncology 04/12/19 Mayco Galeano MD [address] [place] [address] Cardiology 08/18/22 Neuro Ophthalmologist Relationship Specialty Start Date End Date Mitch Mejia PCP - General Family Medicine 01/19/16 Meenu Garay MD, MD [address] [place] [place] [address] Physician Radiation Oncology 09/06/16 Carla Almonte RN Specialty Dandy Tender Oncology 07/06/17 Meenu Garay MD, MD [address] [place] [address] Physician Radiation Oncology 04/12/19 Mayco Galeano MD [address] [place], [place] [address] Cardiology 08/18/22 Neuro Ophthalmologist Relationship Specialty Start Date End Date Mitch Mejia PCP - General Family Medicine 01/19/16 Meenu Garay MD, [address] [place] [address] Physician Radiation Oncology 09/06/16 Carla Almonte, RN Specialty Dandy Tender Oncology 07/06/17 Meenu Garay MD, [address] [place] [address] Physician Radiation Oncology 04/12/19 Mayco Galeano MD [address] [place] [address] Cardiology 08/18/22 Neuro Ophthalmologist Relationship Specialty Start Date End Date Mitch Mejia MD PCP - General Family Medicine 01/19/16 Meenu Garay MD, [address] [place] [place] [address] Physician Radiation Oncology 09/06/16 Carla Almonte RN Specialty Dandy Tender Oncology 07/06/17 Meenu Garay MD, [address] [place] [address] Physician Radiation Oncology 04/12/19 Mayco Galeano MD [address] [place] [address] Cardiology 08/18/22 Neuro Ophthalmologist Relationship Specialty Start Date End Date Mitch Mejia MD PCP - General Family Medicine 01/19/16 Meenu Garay MD, [address] [place] [address] Physician Radiation Oncology 09/06/16 Carla Almonte RN Specialty Dandy Tender Oncology 07/06/17 Meenu Garay MD, [address] [place] [address] Physician Radiation Oncology 04/12/19 Mayco Galeano MD [address] [place] [address] Cardiology 08/18/22 Neuro Ophthalmologist Relationship Specialty Start Date End Date Mitch Mejia MD PCP - General Family Medicine 01/19/16 Meenu Garay MD, [address] [place] [address] Physician Radiation Oncology 09/06/16 Carla Almonte RN Specialty Dandy Tender Oncology 07/06/17 Meenu Garay MD, [address] [place] [address] Physician Radiation Oncology 04/12/19 Mayco Galeano MD [address] [place] [address] Cardiology 08/18/22 Neuro Ophthalmologist Relationship Specialty Start Date End Date Mitch Mejia MD PCP - General Family Medicine 01/19/16 Meenu Garay MD, [address] [place] [address] Physician Radiation Oncology 09/06/16 Carla Almonte, RN Specialty Dandy Tender Oncology 07/06/17 Meenu Garay MD, [address] [place] [address] Physician Radiation Oncology 04/12/19 Mayco Galeano MD [address] [place] [address] Cardiology 08/18/22 Neuro Ophthalmologist Relationship Specialty Start Date End Date Mitch Mejia MD PCP - General Family Medicine 01/19/16 Meenu Garay MD, [address] [place] [place] [address] Physician Radiation Oncology 09/06/16 Carla Almonte RN Specialty Dandy Tender Oncology 07/06/17 Meenu Garay MD, [address] [place] [address] Physician Radiation Oncology 04/12/19 Mayco Galeano MD [address] [place] [address] Cardiology 08/18/22 Neuro Ophthalmologist Relationship Specialty Start Date End Date Mitch Mejia MD PCP - General Family Medicine 01/19/16 Meenu Garay MD, [address] [place] [address] Physician Radiation Oncology 09/06/16 Carla Almonte, RN Specialty Dandy Tender Oncology 07/06/17 Meenu Garay MD, [address] [place], [place] [address] [phone] Physician Radiation Oncology 04/12/19 [place] [address] [place] [address] [facility] [address] [place], [place] [address] Cardiology 08/18/22 Neuro Ophthalmologist Relationship Specialty Start Date End Date Mitch Mejia MD PCP - General Family Medicine 01/19/16 Meenu Garay MD, [address] [place] [address] Physician Radiation Oncology 09/06/16 Carla Almonte, RN Specialty Dandy Tender Oncology 07/06/17 Meenu Garay MD, MD [address] [place] [address] Physician Radiation Oncology 04/12/19 Chanelle Westfall RN [address] [place] [address] Specialty Dandy Tender Hematology/Oncology 03/12/21 12/13/22 Mayco Galeano MD [address] [place] [address] Cardiology 08/18/22 Neuro Ophthalmologist Relationship Specialty Start Date End Date Mitch Mejia MD PCP - General Family Medicine 01/19/16 Meenu Garay MD, [address] [place] [address] Physician Radiation Oncology 09/06/16 Carla Almonte, RN Specialty Dandy Tender Oncology 07/06/17 Meenu Garay MD, [address] [place] [address] Physician Radiation Oncology 04/12/19 Chanelle Westfall, PRINCE [address] [place] [address] Specialty Dandy Tender Hematology/Oncology 03/12/21 12/13/22 Mayco Galeano MD [address] [place] [address] Cardiology 08/18/22 Neuro Ophthalmologist Relationship Specialty Start Date End Date Mitch eMjia MD PCP - General Family Medicine 01/19/16 Meenu Garay MD, MD [address] [place] [address] Physician Radiation Oncology 09/06/16 Carla Almonte RN Specialty Dandy Tender Oncology 07/06/17 Meenu Garay MD, [address] [place] [address] Physician Radiation Oncology 04/12/19 Chanelle Westfall, RN [address] [place] [address] Specialty Dandy Tender Hematology/Oncology 03/12/21 12/13/22 Mayco Galeano MD [address] [place] [address] Cardiology 08/18/22 Neuro Ophthalmologist Relationship Specialty Start Date End Date Mitch Mejia MD PCP - General Family Medicine 01/19/16 Meenu Garay MD, [address] [place] [address] Physician Radiation Oncology 09/06/16 Carla Almonte RN Specialty Dandy Tender Oncology 07/06/17 Meenu Garay MD, [address] [place] [address] Physician Radiation Oncology 04/12/19 Chanelle Westfall, RN [address] [place] [address] Specialty Dandy Tender Hematology/Oncology 03/12/21 12/13/22 Neuro Ophthalmologist Relationship Specialty Start Date End Date Mitch Mejia MD PCP - General Family Medicine 01/19/16 Meenu Garay MD, [address] [place] [address] Physician Radiation Oncology 09/06/16 Carla Almonte, RN Specialty Dandy Tender Oncology 07/06/17 Meenu Garay MD, MD [address] [place] [address] Physician Radiation Oncology 04/12/19 Mayco Galeano MD [address] [facility] [address] [place] [address] Cardiology 08/18/22 Neuro Ophthalmologist Relationship Specialty Start Date End Date Mitch Mejia MD PCP - General Family Medicine 01/19/16 Meenu Garay MD, [address] [place] [address] Physician Radiation Oncology 09/06/16 Carla Almonte, RN Specialty Dandy Tender Oncology 07/06/17 Meenu Garay MD, MD [address] [place] [address] Physician Radiation Oncology 04/12/19 Mayco Galeano MD [address] [place] [address] Cardiology 08/18/22 Neuro Ophthalmologist Relationship Specialty Start Date End Date Mitch Mejia MD PCP - General Family Medicine 01/19/16 Meenu Garay MD, [address] [place] [place] [address] Physician Radiation Oncology 09/06/16 Carla Almonte, RN Specialty Dandy Tender Oncology 07/06/17 Meenu Garay MD, MD [address] [place] [address] Physician Radiation Oncology 04/12/19 Chanelle Westfall, PRINCE [address] [place] [address] Specialty Dandy Tender Hematology/Oncology 03/12/21 12/13/22 Mayco Galeano MD [address] [place] [address] Cardiology 08/18/22 Neuro Ophthalmologist Relationship Specialty Start Date End Date Mitch Mejia MD PCP - General Family Medicine 01/19/16 Meenu Garay MD, [address] [place] [address] Physician Radiation Oncology 09/06/16 Carla Almonte RN Specialty Dandy Tender Oncology 07/06/17 Meenu Garay MD, [address] [place] [address] Physician Radiation Oncology 04/12/19 Mayco Galeano MD [address] [place], [place] [address] Cardiology 08/18/22 Neuro Ophthalmologist Relationship Specialty Start Date End Date Mitch Mejia MD PCP - General Family Medicine 01/19/16 Meenu Garay MD, [address] [place] [address] Physician Radiation Oncology 09/06/16 Carla Almonte, RN Specialty Dandy Tender Oncology 07/06/17 Meenu Garay MD, [address] [place] [address] Physician Radiation Oncology 04/12/19 Chanelle Westfall, PRINCE [address] [place] [address] Specialty Dandy Tender Hematology/Oncology 03/12/21 12/13/22 Neuro Ophthalmologist Relationship Specialty Start Date End Date Mitch Mejia MD PCP - General Family Medicine 01/19/16 Meenu Garay MD, [address] [place] [address] Physician Radiation Oncology 09/06/16 Carla Almonte, RN Specialty Dandy Tender Oncology 07/06/17 Meenu Garay MD, [address] [place] [address] Physician Radiation Oncology 04/12/19 Chanelle Westfall, RN [address] [place] [address] Specialty Dandy Tender Hematology/Oncology 03/12/21 12/13/22 Neuro Ophthalmologist Relationship Specialty Start Date End Date Mitch Mejia MD PCP - General Family Medicine 01/19/16 Meenu Garay MD, [address] [place] [address] Physician Radiation Oncology 09/06/16 Carla Almonte, RN Specialty Dandy Tender Oncology 07/06/17 Meenu Garay MD, [address] [place] [address] Physician Radiation Oncology 04/12/19 Chanelle Westfall RN [address] [place] [address] Specialty Dandy Tender Hematology/Oncology 03/12/21 12/13/22 Neuro Ophthalmologist Relationship Specialty Start Date End Date Mitch Mejia MD PCP - General Family Medicine 01/19/16 Meenu Garay MD, [address] [place] [address] Physician Radiation Oncology 09/06/16 Carla Almonte, RN Specialty Dandy Tender Oncology 07/06/17 Meenu Garay MD, [address] [place] [address] Physician Radiation Oncology 04/12/19 Mayco Galeano MD [address] [place], [place] [address] Cardiology 08/18/22 Neuro Ophthalmologist Relationship Specialty Start Date End Date Emma Farrell DO [address] [facility] Physician [facility] [place] [address] PCP - General Internal Medicine 04/26/23 Meenu Garay MD, [address] [place] [address] Physician Radiation Oncology 09/06/16 Carla Almonte, RN Specialty Dandy Tender Oncology 07/06/17 Meenu Garay MD, [address] [place] [address] Physician Radiation Oncology 04/12/19 Mayco Galeano MD [address] [place] [address] Cardiology 08/18/22 Neuro Ophthalmologist Relationship Specialty Start Date End Date Emma Farrell DO [address] [place] [address] [place] [address] PCP - General Internal Medicine 04/26/23 Meenu Garay MD, [address] [place] [address] Physician Radiation Oncology 09/06/16 Carla Almonte, RN Specialty Dandy Tender Oncology 07/06/17 Meenu aGray MD, MD [address] [place] [address] Physician Radiation Oncology 04/12/19 Mayco Galeano MD [address] [place] [address] Cardiology 08/18/22 Neuro Ophthalmologist Relationship Specialty Start Date End Date Emma Farrell DO [address] [facility] [place] [address] PCP - General Internal Medicine 04/26/23 Meenu Garay MD, MD [address] [place], [place] [address] Physician Radiation Oncology 09/06/16 Carla Almonte RN Specialty Dandy Tender Oncology 07/06/17 Meenu Garay MD, [address] [place], [place] [address] Physician Radiation Oncology 04/12/19 Mayco Galeano MD [address] [facility] [place], [place] [id number] Cardiology 08/18/22 Team Status: Active Member Role Status Dates Dr. Mitch Mejia MD Family Provider Active Dr. Emma Farrell DO Primary Care Provider Active Team Status: Inactive Member Role Status Dates Dr. Mitch Mejia MD Referring Provider Active Renetta Yang DOCUMENTATION SPEC, DOCUMENTATION SPEC-C Attending Provider Active Dr. Emma Farrell DO Primary Care Provider Active Team Status: Active Member Role Status Dates Dr. Emma Farrell DO Primary Care Provider Active Dr. Mayco Galeano MD Attending Provider Active Team Status: Inactive Member Role Status Dates Dr. Rip Rivers DO Attending Provider, Referring Prov ider Active Dr. Emma Farrell DO Primary Care Provider Active Neuro Ophthalmologist Relationship Specialty Start Date End Date Emma Farrell DO [address] [facility] [place] [address] PCP - General Internal Medicine 04/26/23 Meenu Garay MD [address] [place], [place] [address] Physician Radiation Oncology 09/06/16 Carla Almonte RN Specialty Dandy Tender Oncology 07/06/17 Meenu Garay MD [address] [place] [address] Physician Radiation Oncology 04/12/19 Mayco Galeano MD [address] [place] [address], [place] [address] Cardiology 08/18/22 Neuro Ophthalmologist Relationship Specialty Start Date End Date Emma Farrell DO [address] [facility] [place] [address] PCP - General Internal Medicine 04/26/23 Meenu Garay MD [address] [place] [address] Physician Radiation Oncology 09/06/16 Carla Almonte RN Specialty Dandy Tender Oncology 07/06/17 Meenu Garay MD [address] [address] Physician Radiation Oncology 04/12/19 Mayco Galeano MD [address] [place] [address], [place] [address] Cardiology 08/18/22 Neuro Ophthalmologist Relationship Specialty Start Date End Date Emma Farrell DO [address] [facility] [place] [address] PCP - General Internal Medicine 04/26/23 Meenu Garay MD [address] [place] [address] Physician Radiation Oncology 09/06/16 Carla Almonte RN Specialty Dandy Tender Oncology 07/06/17 Meenu Garay MD [address] [place] [address] Physician Radiation Oncology 04/12/19 Mayco Galeano MD [address] [address] Cardiology 08/18/22 Neuro Ophthalmologist Relationship Specialty Start Date End Date Emma Farrell DO [address] [facility] [place] [address] PCP - General Internal Medicine 04/26/23 Meenu Garay MD [address] [place] [address] Physician Radiation Oncology 09/06/16 Carla Almonte RN Specialty Dandy Tender Oncology 07/06/17 Meenu Garay MD [address] [place] [address] Physician Radiation Oncology 04/12/19 Mayco Galeano MD [address] [place] [address] Cardiology 08/18/22 Neuro Ophthalmologist Relationship Specialty Start Date End Date Emma Farrell DO [address] [facility] [place] [address] PCP - General Internal Medicine 04/26/23 Meenu Garay MD [address] [place] [address] Physician Radiation Oncology 09/06/16 Carla Almonte RN Specialty Dandy Tender Oncology 07/06/17 Meenu Garay MD [address] [place] [address] Physician Radiation Oncology 04/12/19 Mayco Glaeano MD [address] [place] [address] Cardiology 08/18/22 Neuro Ophthalmologist Relationship Specialty Start Date End Date Emma Farrell DO [address] [facility] [place] [address] PCP - General Internal Medicine 04/26/23 Meenu Garay MD [address] [place] [address] Physician Radiation Oncology 09/06/16 Carla Almonte RN Specialty Dandy Tender Oncology 07/06/17 Meenu Garay MD [address] [place] [address] Physician Radiation Oncology 04/12/19 Mayco Galeano MD [address] [place] [address] Cardiology 08/18/22 Neuro Ophthalmologist Relationship Specialty Start Date End Date Emma Farrell DO [address] [facility] [place] [address] PCP - General Internal Medicine 04/26/23 Meenu Garay MD [address] [place] [address] Physician Radiation Oncology 09/06/16 Carla Almonte RN Specialty Dandy Tender Oncology 07/06/17 Meenu Garay MD [address] [place] [address] Physician Radiation Oncology 04/12/19 Mayco Galeano MD [address] [place] [address] Cardiology 08/18/22 Neuro Ophthalmologist Relationship Specialty Start Date End Date Emma Farrell DO [address] [facility] [place] [address] PCP - General Internal Medicine 04/26/23 Meenu Garay MD [address] [place] [address] Physician Radiation Oncology 09/06/16 Carla Almonte RN Specialty Dandy Tender Oncology 07/06/17 Meenu Garay MD [address] [place] [address] Physician Radiation Oncology 04/12/19 Mayco Galeano MD [address] [place] [address] Cardiology 08/18/22 Team Status: Inactive Member Role Status Dates Dr. Emma Farrell DO Primary Care Provider Active Dr. Eze Mack MD Emergency Provider Active Neuro Ophthalmologist Relationship Specialty Start Date End Date Emma Farrell DO [address] [facility] [place] [address] PCP - General Internal Medicine 04/26/23 Meenu Garay MD [address] [place] [address] Physician Radiation Oncology 09/06/16 Carla Almonte RN Specialty Dandy Tender Oncology 07/06/17 Meenu Garay MD [address] [place] [address] Physician Radiation Oncology 04/12/19 Mayco Galeano MD [address] [facility] [place] [address] Cardiology 08/18/22 Neuro Ophthalmologist Relationship Specialty Start Date End Date Emma Farrell DO [address] [facility] [place] [address] PCP - General Internal Medicine 04/26/23 Meenu Garay MD [address] [place] [address] Physician Radiation Oncology 09/06/16 Carla Almonte RN Specialty Dandy Tender Oncology 07/06/17 Meenu Garay MD [address] [place] [address] Physician Radiation Oncology 04/12/19 Mayco Galeano MD [address] [place] [address] Cardiology 08/18/22 Neuro Ophthalmologist Relationship Specialty Start Date End Date Emma Farrell DO [address] [facility] [place] [address] PCP - General Internal Medicine 04/26/23 Meenu Garay MD [address] [place] [address] Physician Radiation Oncology 09/06/16 Carla Almonte RN Specialty Dandy Tender Oncology 07/06/17 Meenu Garay MD [address] [place] [address] Physician Radiation Oncology 04/12/19 Mayco Galeano MD [address] [place] [address] Cardiology 08/18/22 Neuro Ophthalmologist Relationship Specialty Start Date End Date Emma Farrell DO [address] [facility] [place] [address] PCP - General Internal Medicine 04/26/23 Meenu Garay MD [address] [place] [address] Physician Radiation Oncology 09/06/16 Carla Almonte RN Specialty Dandy Tender Oncology 07/06/17 Meenu Garay MD [address] [place] [address] Physician Radiation Oncology 04/12/19 Mayco Galeano MD [address] [place] [address] Cardiology 08/18/22 Neuro Ophthalmologist Relationship Specialty Start Date End Date Emma Farrell DO [address] [facility] [place] [address] PCP - General Internal Medicine 04/26/23 Meenu Garay MD [address] [address] Physician Radiation Oncology 09/06/16 Carla Almonte RN Specialty Dandy Tender Oncology 07/06/17 Meenu Garay MD [address] [place] [address] Physician Radiation Oncology 04/12/19 Mayco Galeano MD [address] [place] [address] Cardiology 08/18/22 Neuro Ophthalmologist Relationship Specialty Start Date End Date Emma Farrell DO [address] [facility] Physician [place] [address] PCP - General Internal Medicine 04/26/23 Meenu Garay MD [address] [place] [address] Physician Radiation Oncology 09/06/16 Carla Almonte RN Specialty Dandy Tender Oncology 07/06/17 Meenu Garay MD [address] [place] [address] Physician Radiation Oncology 04/12/19 Mayco Galeano MD [address] [facility] [address] [place] [address] Cardiology 08/18/22 Neuro Ophthalmologist Relationship Specialty Start Date End Date Emma Farrell DO [address] [facility] [place] [address] PCP - General Internal Medicine 04/26/23 Meenu Garay MD [address] [place] [address] Physician Radiation Oncology 09/06/16 Carla Almonte RN Specialty Dandy Tender Oncology 07/06/17 Meenu Garay MD [address] [place] [address] Physician Radiation Oncology 04/12/19 Mayco Galeano MD [address] [place] [address] Cardiology 08/18/22 Neuro Ophthalmologist Relationship Specialty Start Date End Date Emma Farrell DO [address] [facility] [place] [address] PCP - General Internal Medicine 04/26/23 Meenu Garay MD [address] [place] [address] Physician Radiation Oncology 09/06/16 Carla Almonte RN Specialty Dandy Tender Oncology 07/06/17 Meenu Garay MD [address] [place] [address] Physician Radiation Oncology 04/12/19 Mayco Galeano MD [address] [facility] [address] [place] [address] Cardiology 08/18/22 Neuro Ophthalmologist Relationship Specialty Start Date End Date Emma Farrell DO [address] [facility] [place] [address] PCP - General Internal Medicine 04/26/23 Meenu Garay MD [address] [place] [address] Physician Radiation Oncology 09/06/16 Carla Almonte RN Specialty Dandy Tender Oncology 07/06/17 Meenu Garay MD [address] [place] [address] Physician Radiation Oncology 04/12/19 Mayco Galeano MD [address] [place] [address] Cardiology 08/18/22 Neuro Ophthalmologist Relationship Specialty Start Date End Date Emma Farrell DO [address] [facility] [place] [address] PCP - General Internal Medicine 04/26/23 Meenu Garay MD [address] [place] [address] Physician Radiation Oncology 09/06/16 Carla Almonte RN Specialty Dandy Tender Oncology 07/06/17 Meenu Garay MD [address] [place] [address] Physician Radiation Oncology 04/12/19 Mayco Galeano MD [address] [place] [address] Cardiology 08/18/22 Neuro Ophthalmologist Relationship Specialty Start Date End Date Emma Farrell DO [address] [facility] [place] [address] PCP - General Internal Medicine 04/26/23 Meenu Garay MD [address] [place] [address] Physician Radiation Oncology 09/06/16 Carla Almonte, RN Specialty Dandy Tender Oncology 07/06/17 Meenu Garay MD [address] [place] [address] Physician Radiation Oncology 04/12/19 Mayco Galeano MD [address] [place] [address] Cardiology 08/18/22 Neuro Ophthalmologist Relationship Specialty Start Date End Date Emma Farrell DO [address] [facility] [place] [address] PCP - General Internal Medicine 04/26/23 Meenu Garay MD [address] [place] [address] Physician Radiation Oncology 09/06/16 Carla Almonte, RN Specialty Dandy Tender Oncology 07/06/17 Meenu Garay MD [address] [place] [address] Physician Radiation Oncology 04/12/19 Mayco Galeano MD [address] [place] [address] Cardiology 08/18/22 Neuro Ophthalmologist Relationship Specialty Start Date End Date Emma Farrell DO [address] [facility] [place] [address] PCP - General Internal Medicine 04/26/23 Meenu Garay MD [address] [place] [address] Physician Radiation Oncology 09/06/16 Carla Almonte RN Specialty Dandy Tender Oncology 07/06/17 Meenu Garay MD [address] [place] [address] Physician Radiation Oncology 04/12/19 Mayco Galeano MD [address] [place] [address], [place] [address] Cardiology 08/18/22 Neuro Ophthalmologist Relationship Specialty Start Date End Date Emma Farrell DO [address] [facility] [place] [address] PCP - General Internal Medicine 04/26/23 Meenu Garay MD [address] [place] [address] Physician Radiation Oncology 09/06/16 Carla Almonte RN Specialty Dandy Tender Oncology 07/06/17 Meenu Garay MD [address] [place] [address] Physician Radiation Oncology 04/12/19 Mayco Galeano MD [address] [address] Cardiology 08/18/22 Neuro Ophthalmologist Relationship Specialty Start Date End Date Emma Farrell DO [address] [facility] [place] [address] PCP - General Internal Medicine 04/26/23 Meenu Garay MD [address] [place] [address] Physician Radiation Oncology 09/06/16 Carla Almonte RN Specialty Dandy Tender Oncology 07/06/17 Meenu Garay MD [address] [address] Physician Radiation Oncology 04/12/19 Mayco Galeano MD [address] [place] [address] Cardiology 08/18/22 Neuro Ophthalmologist Relationship Specialty Start Date End Date Emma Farrell DO 53 [facility] [place] [address] PCP - General Internal Medicine 04/26/23 Meenu Garay MD [address] [place] [address] Physician Radiation Oncology 09/06/16 Carla Almonte RN Specialty Dandy Tender Oncology 07/06/17 Meenu Garay MD [address] [place] [address] Physician Radiation Oncology 04/12/19 Mayco Galeano MD [address] [facility] [address] [place] [address] Cardiology 08/18/22 Neuro Ophthalmologist Relationship Specialty Start Date End Date Emma Farrell DO 53 [facility] Physician [place] [address] PCP - General Internal Medicine 04/26/23 Meenu Garay MD [address] [place] [address] Physician Radiation Oncology 09/06/16 Carla Almonte RN Specialty Dandy Tender Oncology 07/06/17 Meenu Garay MD [address] [place] [address] Physician Radiation Oncology 04/12/19 Mayco Galeano MD [address] [facility] [place] [address] Cardiology 08/18/22 Neuro Ophthalmologist Relationship Specialty Start Date End Date Emma Farrell DO 53 [facility] Physician [place] [address] PCP - General Internal Medicine 04/26/23 Meenu Garay MD [address] [place] [address] Physician Radiation Oncology 09/06/16 Carla Almonte RN Specialty Dandy Tender Oncology 07/06/17 Meenu Garay MD [address] [place] [address] Physician Radiation Oncology 04/12/19 Mayco Galeano MD [address] [place] [address] Cardiology 08/18/22 Neuro Ophthalmologist Relationship Specialty Start Date End Date Emma Farrell DO 53 [facility] [place] [address] PCP - General Internal Medicine 04/26/23 Meenu Garay MD [address] [place] [address] Physician Radiation Oncology 09/06/16 Carla Almonte RN Specialty Dandy Tender Oncology 07/06/17 Meenu Garay MD [address] [place] [address] Physician Radiation Oncology 04/12/19 Mayco Galeano MD [address] [place] [address] Cardiology 08/18/22 Rip Rivers DO [address] [place] [address] Hematology/Oncology 10/14/23 Neuro Ophthalmologist Relationship Specialty Start Date End Date Emma Farrell DO 53 [facility] Physician [place], [place] [address] PCP - General Internal Medicine 04/26/23 Meenu Garay MD [address] [place] [place] [address] Physician Radiation Oncology 09/06/16 Carla Almonte, RN Specialty Dandy Tender Oncology 07/06/17 Meenu Garay MD [address] [place] [address] Physician Radiation Oncology 04/12/19 Mayco Galeano MD [address] [facility] [place] [address] Cardiology 08/18/22 Rip Rivers DO [address] [place] [address] Hematology/Oncology 10/14/23 Neuro Ophthalmologist Relationship Specialty Start Date End Date Emma Farrell DO 53 [facility] Physician [place], [place] [id number] PCP - General Internal Medicine 04/26/23 Meenu Garay MD [address] [place] [address] Physician Radiation Oncology 09/06/16 Carla Almonte, RN Specialty Dandy Tender Oncology 07/06/17 Meenu Garay MD [address] [place] [place] [address] Physician Radiation Oncology 04/12/19 Mayco Galeano MD [address] [facility] [place] [address] Cardiology 08/18/22 Rip Rivers DO [address] [place] [address] Hematology/Oncology 10/14/23 Neuro Ophthalmologist Relationship Specialty Start Date End Date Emma Farrell DO 53 [facility] [place] [address] PCP - General Internal Medicine 04/26/23 Meenu Garay MD [address] [place] [address] Physician Radiation Oncology 09/06/16 Carla Almonte, PRINCE Specialty Dandy Tender Oncology 07/06/17 Meenu Garay MD [address] [place] [place] [address] Physician Radiation Oncology 04/12/19 Mayco Galeano MD [address] [facility] [place] [address] Cardiology 08/18/22 Rip Rivers DO [address] [place] [address] Hematology/Oncology 10/14/23 Neuro Ophthalmologist Relationship Specialty Start Date End Date Emma Farrell DO [address] [facility] [place] [address] PCP - General Internal Medicine 04/26/23 Meenu Garay MD [address] [place] [address] Physician Radiation Oncology 09/06/16 Carla Almonte RN Specialty Dandy Tender Oncology 07/06/17 Meenu Garay MD [address] [place] [address] Physician Radiation Oncology 04/12/19 Mayco Galeano MD [address] [place] [address] Cardiology 08/18/22 Rip Rivers DO [address] [place] [address] Hematology/Oncology 10/14/23 Neuro Ophthalmologist Relationship Specialty Start Date End Date Emma Farrell DO 53 [facility] Physician [place], [place] [id number] PCP - General Internal Medicine 04/26/23 Meenu Garay MD [address] [place] [address] Physician Radiation Oncology 09/06/16 Carla Almonte RN Specialty Dandy Tender Oncology 07/06/17 Meenu Garay MD [address] [place] [place] [address] Physician Radiation Oncology 04/12/19 Mayco Galeano MD [address] [place] [address] Cardiology 08/18/22 Rip Rivers DO [address] [place] [address] Hematology/Oncology 10/14/23 Neuro Ophthalmologist Relationship Specialty Start Date End Date Emma Farrell DO [address] [facility] [place] [address] PCP - General Internal Medicine 04/26/23 Meenu Garay MD [address] [place] [address] Physician Radiation Oncology 09/06/16 Carla Almonte RN Specialty Dandy Tender Oncology 07/06/17 Meenu Garay MD [address] [place] [address] Physician Radiation Oncology 04/12/19 Mayco Galeano MD [address] [place] [address] Cardiology 08/18/22 Rip Rivers DO [address] [place] [address] Hematology/Oncology 10/14/23 Neuro Ophthalmologist Relationship Specialty Start Date End Date Emma Farrell DO 53 [facility] [place] [address] PCP - General Internal Medicine 04/26/23 Meenu Garay MD [address] [place] [address] Physician Radiation Oncology 09/06/16 Carla Almonte RN Specialty Dandy Tender Oncology 07/06/17 Meenu Garay MD [address] [place] [address] Physician Radiation Oncology 04/12/19 Mayco Galeano MD [address] [place] [address] Cardiology 08/18/22 Rip Rivers DO [address] [place] [address] Hematology/Oncology 10/14/23 Neuro Ophthalmologist Relationship Specialty Start Date End Date Emma Farrell DO [address] [facility] [place] [address] PCP - General Internal Medicine 04/26/23 Meenu Garay MD [address] [place] [address] Physician Radiation Oncology 09/06/16 Carla Almonte, PRINCE Specialty Dandy Tender Oncology 07/06/17 Meenu Garay MD [address] [place] [address] Physician Radiation Oncology 04/12/19 Mayco Galeano MD [address] [place] [address] Cardiology 08/18/22 Rip Rivers DO [address] [place] [address] Hematology/Oncology 10/14/23 Neuro Ophthalmologist Relationship Specialty Start Date End Date Emma Farrell DO [address] [facility] [place] [address] PCP - General Internal Medicine 04/26/23 Meenu Garay MD [address] [place] [address] Physician Radiation Oncology 09/06/16 Carla Almonte RN Specialty Dandy Tender Oncology 07/06/17 Meenu Garay MD [address] [place] [address] Physician Radiation Oncology 04/12/19 Mayco Galeano MD [address] [facility] [place], [place] [address] Cardiology 08/18/22 Rip Rivers DO [address] [place] [address] Hematology/Oncology 10/14/23 Neuro Ophthalmologist Relationship Specialty Start Date End Date Emma Farrell DO 53 [facility] [place] [address] PCP - General Internal Medicine 06/16/23 Neuro Ophthalmologist Relationship Specialty Start Date End Date Emma Farrell DO 53 [facility] [place] [address] PCP - General Internal Medicine 04/26/23 Meenu Garay MD [address] [place] [address] Physician Radiation Oncology 09/06/16 Carla Almonte RN Specialty Dandy Tender Oncology 07/06/17 Meenu Garay MD [address] [place] [address] Physician Radiation Oncology 04/12/19 Mayco Galeano MD [address] [place] [address] Cardiology 08/18/22 Rip Rivers DO [address] [place] [address] Hematology/Oncology 10/14/23 Neuro Ophthalmologist Relationship Specialty Start Date End Date Emma Farrell DO 53 [facility] [place] [address] PCP - General Internal Medicine 04/26/23 Meenu Garay MD [address] [place] [address] Physician Radiation Oncology 09/06/16 Carla Almonte, PRINCE Specialty Dandy Tender Oncology 07/06/17 Meenu Garay MD [address] [place] [address] Physician Radiation Oncology 04/12/19 Mayco Galeano MD [address] [place] [address] Cardiology 08/18/22 Rip Rivers DO [address] [place] [address] Hematology/Oncology 10/14/23 Neuro Ophthalmologist Relationship Specialty Start Date End Date Emma Farrell DO 53 [facility] [place] [address] PCP - General Internal Medicine 04/26/23 Meenu Garay MD [address] [place] [address] Physician Radiation Oncology 09/06/16 Carla Almonte RN Specialty Dandy Tender Oncology 07/06/17 Meenu Garay MD [address] [place] [address] Physician Radiation Oncology 04/12/19 Mayco Galeano MD [address] [place] [address] Cardiology 08/18/22 Rip Rivers DO [address] [place] [address] Hematology/Oncology 10/14/23 Neuro Ophthalmologist Relationship Specialty Start Date End Date Emma Farrell DO 53 [facility] [place] [address] PCP - General Internal Medicine 04/26/23 Meenu Garay MD [address] [place] [address] Physician Radiation Oncology 09/06/16 Carla Almonte RN Specialty Dandy Tender Oncology 07/06/17 Meenu Garay MD [address] [place] [address] Physician Radiation Oncology 04/12/19 Mayco Galeano MD [address] [place] [address] Cardiology 08/18/22 Rip Rivers DO [address] [place] [address] Hematology/Oncology 10/14/23 Neuro Ophthalmologist Relationship Specialty Start Date End Date Emma Farrell DO 53 [facility] [place] [address] PCP - General Internal Medicine 04/26/23 Meenu Garay MD [address] [place] [address] Physician Radiation Oncology 09/06/16 Carla Almonte RN Specialty Dandy Tender Oncology 07/06/17 Meenu Garay MD [address] [place] [address] Physician Radiation Oncology 04/12/19 Mayco Galeano MD [address] [place] [address] Cardiology 08/18/22 Rip Rivers DO [address] [place] [address] Hematology/Oncology 10/14/23 Neuro Ophthalmologist Relationship Specialty Start Date End Date Emma Farrell DO 53 [facility] [place] [address] PCP - General Internal Medicine 04/26/23 Meenu Garay MD [address] [place] [address] Physician Radiation Oncology 09/06/16 Carla Almonte RN Specialty Dandy Tender Oncology 07/06/17 Meenu Garay MD [address] [place] [address] Physician Radiation Oncology 04/12/19 Mayco Galeano MD [address] [place] [address] Cardiology 08/18/22 Rip Rivers DO [address] [place] [address] Hematology/Oncology 10/14/23 Neuro Ophthalmologist Relationship Specialty Start Date End Date Emma Farrell DO 53 [facility] [place] [address] PCP - General Internal Medicine 04/26/23 Meenu Garay MD [address] [place] [address] Physician Radiation Oncology 09/06/16 Carla Almonte RN Specialty Dandy Tender Oncology 07/06/17 Meenu Garay MD [address] [place] [address] Physician Radiation Oncology 04/12/19 Mayco Galeano MD [address] [place] [address] Cardiology 08/18/22 Rip Rivers DO [address] [place] [address] Hematology/Oncology 10/14/23 Neuro Ophthalmologist Relationship Specialty Start Date End Date Emma Farrell DO 53 [facility] Physician [place] [address] PCP - General Internal Medicine 04/26/23 Meenu Garay MD [address] [place] [address] Physician Radiation Oncology 09/06/16 Carla Almonte RN Specialty Dandy Tender Oncology 07/06/17 Meenu Garay MD [address] [place] [address] Physician Radiation Oncology 04/12/19 Mayco Galeano MD [address] [facility] [place] [address] Cardiology 08/18/22 Rip Rivers DO [address] [place] [address] Hematology/Oncology 10/14/23 Neuro Ophthalmologist Relationship Specialty Start Date End Date Emma Farrell DO 53 [facility] Physician [place] [address] PCP - General Internal Medicine 04/26/23 Meenu Garay MD [address] [place] [address] Physician Radiation Oncology 09/06/16 Carla Almonte RN Specialty Dandy Tender Oncology 07/06/17 Meenu Garay MD [address] [place] [address] Physician Radiation Oncology 04/12/19 Mayco Galeano MD [address] [place] [address] Cardiology 08/18/22 Rip Rivers DO [address] [place] [address] Hematology/Oncology 10/14/23 Neuro Ophthalmologist Relationship Specialty Start Date End Date Emma Farrell DO [address] [facility] [place] [address] PCP - General Internal Medicine 04/26/23 Meenu Garay MD [address] [place] [address] Physician Radiation Oncology 09/06/16 Carla Almonte, RN Specialty Dandy Tender Oncology 07/06/17 Meenu Garay MD [address] [place] [address] Physician Radiation Oncology 04/12/19 Mayco Galeano MD [address] [place] [address] Cardiology 08/18/22 Rip Rivers DO [address] [place] [address] Hematology/Oncology 10/14/23 Neuro Ophthalmologist Relationship Specialty Start Date End Date mEma Farrell DO 53 [facility] [place] [address] PCP - General Internal Medicine 04/26/23 Meenu Garay MD [address] [place] [address] Physician Radiation Oncology 09/06/16 Carla Almonte RN Specialty Dandy Tender Oncology 07/06/17 Meenu Garay MD [address] [place] [address] Physician Radiation Oncology 04/12/19 Mayco Galeano MD [address] [facility] [place] [address] Cardiology 08/18/22 Rip Rivers DO [address] [place] [address] Hematology/Oncology 10/14/23 Neuro Ophthalmologist Relationship Specialty Start Date End Date Emma Farrell DO 53 [facility] [place] [address] PCP - General Internal Medicine 04/26/23 Meenu Garay MD [address] [place] [address] Physician Radiation Oncology 09/06/16 Carla Almonte RN Specialty Dandy Tender Oncology 07/06/17 Meenu Garay MD [address] [place] [address] Physician Radiation Oncology 04/12/19 Mayco Galeano MD [address] [place] [address] Cardiology 08/18/22 Rip Rivers DO [address] [place] [address] Hematology/Oncology 10/14/23 Neuro Ophthalmologist Relationship Specialty Start Date End Date Emma Farrell DO 53 [facility] [place] [address] PCP - General Internal Medicine 04/26/23 Meenu Garay MD [address] [place] [address] Physician Radiation Oncology 09/06/16 Carla Almonte RN Specialty Dandy Tender Oncology 07/06/17 Meenu Garay MD [address] [place] [address] Physician Radiation Oncology 04/12/19 aMyco Galeano MD [address] [place] [address] Cardiology 08/18/22 Rip Rivers DO [address] [place] [address] Hematology/Oncology 10/14/23 Neuro Ophthalmologist Relationship Specialty Start Date End Date Emma Farrell DO 53 [facility] [place] [address] PCP - General Internal Medicine 04/26/23 Meenu Garay MD [address] [place] [place] [address] Physician Radiation Oncology 09/06/16 Carla Almonte RN Specialty Dandy Tender Oncology 07/06/17 Meenu Garay MD [address] [place] [address] Physician Radiation Oncology 04/12/19 Mayco Galeano MD [address] [facility] [place] [address] Cardiology 08/18/22 Rip Rivers DO [address] [place] [address] Hematology/Oncology 10/14/23 Neuro Ophthalmologist Relationship Specialty Start Date End Date Emma Farrell DO [address] [facility] [place] [address] PCP - General Internal Medicine 04/26/23 Meenu Garay MD [address] [place] [address] Physician Radiation Oncology 09/06/16 Carla Almonte RN Specialty Dandy Tender Oncology 07/06/17 Meenu Garay MD [address] [place] [place] [address] Physician Radiation Oncology 04/12/19 Mayco Galeano MD [address] [facility] [place] [address] Cardiology 08/18/22 Rip Rivers DO [address] [place] [address] Hematology/Oncology 10/14/23 Neuro Ophthalmologist Relationship Specialty Start Date End Date Emma Farrell DO [address] [facility] [place] [address] PCP - General Internal Medicine 04/26/23 Meenu Garay MD [address] [place] [place] [address] Physician Radiation Oncology 09/06/16 Carla Almonte RN Specialty Dandy Tender Oncology 07/06/17 Meenu Garay MD [address] [place] [place] [address] Physician Radiation Oncology 04/12/19 Mayco Galeano MD [address] [facility] [place] [address] Cardiology 08/18/22 Rip Rivers DO [address] [place] [address] Hematology/Oncology 10/14/23 Neuro Ophthalmologist Relationship Specialty Start Date End Date Emma Farrell DO [address] [facility] [place] [address] PCP - General Internal Medicine 04/26/23 Meenu Garay MD [address] [place] [address] Physician Radiation Oncology 09/06/16 Carla Almonte RN Specialty Dandy Tender Oncology 07/06/17 Meenu Garay MD [address] [place] [address] Physician Radiation Oncology 04/12/19 Mayco Galeano MD [address] [place] [address] Cardiology 08/18/22 Rip Rivers DO [address] [place] [address] Hematology/Oncology 10/14/23 Neuro Ophthalmologist Relationship Specialty Start Date End Date Emma Farrell DO 53 [facility] Physician [place], [place] [address] PCP - General Internal Medicine 04/26/23 Meenu Garay MD [address] [place] [address] Physician Radiation Oncology 09/06/16 Carla Almonte RN Specialty Dandy Tender Oncology 07/06/17 Meenu Garay MD [address] [place] [address] Physician Radiation Oncology 04/12/19 Mayco Galeano MD [address] [place] [address] Cardiology 08/18/22 Rip Rivers DO [address] [place] [place] [address] Hematology/Oncology 10/14/23 Neuro Ophthalmologist Relationship Specialty Start Date End Date Emma Farrell DO [address] [facility] [place] [address] PCP - General Internal Medicine 04/26/23 Meenu Garay MD [address] [place] [address] Physician Radiation Oncology 09/06/16 Carla Almonte RN Specialty Dandy Tender Oncology 07/06/17 Meenu Garay MD [address] [place] [address] Physician Radiation Oncology 04/12/19 Mayco Galeano MD [address] [place] [address] Cardiology 08/18/22 Rip Rivers DO [address] [place] [address] Hematology/Oncology 10/14/23 Neuro Ophthalmologist Relationship Specialty Start Date End Date Emma Farrell DO [address] [facility] [place] [address] PCP - General Internal Medicine 04/26/23 Meenu Garay MD [address] [place] [address] Physician Radiation Oncology 09/06/16 Carla Almonte RN Specialty Dandy Tender Oncology 07/06/17 Meenu Garay MD [address] [place] [address] Physician Radiation Oncology 04/12/19 Mayco Galeano MD [address] [place] [address] Cardiology 08/18/22 Rip Rivers DO [address] [place] [address] Hematology/Oncology 10/14/23 Neuro Ophthalmologist Relationship Specialty Start Date End Date Emma Farrell DO [address] [facility] [place] [address] PCP - General Internal Medicine 04/26/23 Meenu Garay MD [address] [place] [address] Physician Radiation Oncology 09/06/16 Carla Almonte, PRINCE Specialty Dandy Tender Oncology 07/06/17 Meenu Garay MD [address] [place] [address] Physician Radiation Oncology 04/12/19 Mayco Galeano MD [address] [place] [address] Cardiology 08/18/22 Rip Rivers DO [address] [place] [address] Hematology/Oncology 10/14/23 Neuro Ophthalmologist Relationship Specialty Start Date End Date Emma Farrell DO [address] [facility] [place] [address] PCP - General Internal Medicine 04/26/23 Meenu Garay MD [address] [place] [address] Physician Radiation Oncology 09/06/16 Carla Almonte RN Specialty Dandy Tender Oncology 07/06/17 Meenu Garay MD [address] [place] [address] Physician Radiation Oncology 04/12/19 Mayco Galeano MD [address] [place] [address] Cardiology 08/18/22 Rip Rivers DO [address] [place] [address] Hematology/Oncology 10/14/23 Neuro Ophthalmologist Relationship Specialty Start Date End Date Emma Farrell DO [address] [facility] [place] [address] PCP - General Internal Medicine 04/26/23 Meenu Garay MD [address] [place] [address] Physician Radiation Oncology 09/06/16 Carla Almonte, RN Specialty Dandy Tender Oncology 07/06/17 Meenu Garay MD [address] [place] [address] Physician Radiation Oncology 04/12/19 Mayco Galeano MD [address] [place] [address] Cardiology 08/18/22 Rip Rivers DO [address] [place] [address] Hematology/Oncology 10/14/23 Neuro Ophthalmologist Relationship Specialty Start Date End Date Emma Farrell DO [address] [facility] [place] [address] PCP - General Internal Medicine 04/26/23 Meenu Garay MD [address] [place] [address] Physician Radiation Oncology 09/06/16 Carla Almonte RN Specialty Dandy Tender Oncology 07/06/17 Meenu Garay MD [address] [place] [address] Physician Radiation Oncology 04/12/19 Mayco Galeano MD [address] [facility] [place] [address] Cardiology 08/18/22 Rip Rivers DO [address] [place] [address] Hematology/Oncology 10/14/23 Neuro Ophthalmologist Relationship Specialty Start Date End Date Emma Farrell DO [address] [facility] [place] [address] PCP - General Internal Medicine 04/26/23 Meenu Garay MD [address] [place] [address] Physician Radiation Oncology 09/06/16 Carla Almonte RN Specialty Dandy Tender Oncology 07/06/17 Meenu Garay MD [address] [place] [address] Physician Radiation Oncology 04/12/19 Mayco Galeano MD [address] [place] [address], [place] [address] Cardiology 08/18/22 Rip Rivers DO [address] [place] [address] Hematology/Oncology 10/14/23 Neuro Ophthalmologist Relationship Specialty Start Date End Date Eliot Billingsley MD [address] [place] [id number] PCP - General Family Medicine 07/04/24 Meenu Garay MD [address] [place] [address] Physician Radiation Oncology 09/06/16 Carla Almonte RN Specialty Dandy Tender Oncology 07/06/17 Meenu Garay MD [address] [place] [address] Physician Radiation Oncology 04/12/19 Mayco Galeano MD [address] [place] [address], [place] [address] Cardiology 08/18/22 Rip Rivers DO [address] [place], [place] [address] Hematology/Oncology 10/14/23 Neuro Ophthalmologist Relationship Specialty Start Date End Date Eliot Billingsley MD [address] [place] [id number] PCP - General Family Medicine 07/04/24 Meenu Garay MD [address] [place] [address] Physician Radiation Oncology 09/06/16 Carla Almonte RN Specialty Dandy Tender Oncology 07/06/17 Meenu Garay MD [address] [place] [address] Physician Radiation Oncology 04/12/19 Mayco Galeano MD [address] [place] [address] Cardiology 08/18/22 Rip Rivers DO [address] [place] [address] Hematology/Oncology 10/14/23 Neuro Ophthalmologist Relationship Specialty Start Date End Date Eliot Billingsley MD [address] [place] [address] PCP - General Family Medicine 07/04/24 Meenu Garay MD [address] [place] [address] Physician Radiation Oncology 09/06/16 Carla Almonte RN Specialty Dandy Tender Oncology 07/06/17 Meenu Garay MD [address] [place] [address] Physician Radiation Oncology 04/12/19 Mayco Galeano MD [address] [place] [address] Cardiology 08/18/22 Rip Rivers DO [address] [place] [address] Hematology/Oncology 10/14/23 Neuro Ophthalmologist Relationship Specialty Start Date End Date Eliot Billingsley MD [address] [place] [id number] PCP - General Family Medicine 07/04/24 Meenu Garay MD [address] [place] [address] Physician Radiation Oncology 09/06/16 Carla Almonte, RN Specialty Dandy Tender Oncology 07/06/17 Meenu Garay MD [address] [place] [address] Physician Radiation Oncology 04/12/19 Mayco Galeano MD [address] [place] [address] Cardiology 08/18/22 Rip Rivers DO [address] [place] [address] Hematology/Oncology 10/14/23 Neuro Ophthalmologist Relationship Specialty Start Date End Date Emma Farrell DO [address] [facility] Physician [place], [place] [id number] PCP - General Internal Medicine 04/26/23 07/03/24 Eliot Billingsley MD [address] [place] [address] PCP - General Family Medicine 07/04/24 Meenu Garay MD [address] [place] [place] [address] Physician Radiation Oncology 09/06/16 Carla Almonte RN Specialty Dandy Tender Oncology 07/06/17 Meenu Garay MD [address] [place] [address] Physician Radiation Oncology 04/12/19 Mayco Galeano MD [address], [place] [address] Cardiology 08/18/22 Rip Rivers DO [address] [place] [address] Hematology/Oncology 10/14/23 Neuro Ophthalmologist Relationship Specialty Start Date End Date Eliot Billingsley MD [address] [place] [phone] PCP - General Family Medicine 07/04/24 Meenu Garay MD [address] [place] [address] Physician Radiation Oncology 09/06/16 Carla Almonte RN Specialty Dandy Tender Oncology 07/06/17 Meenu Garay MD [address] [place] [address] Physician Radiation Oncology 04/12/19 Mayco Galeano MD [address] [place] [address] Cardiology 08/18/22 Rip Rivers DO [address] [place] [address] Hematology/Oncology 10/14/23 Neuro Ophthalmologist Relationship Specialty Start Date End Date Eliot Billingsley MD [address] [address] PCP - General Family Medicine 07/04/24 Meenu Garay MD [address] [place] [address] Physician Radiation Oncology 09/06/16 Carla Almonte, PRINCE Specialty Dandy Tender Oncology 07/06/17 Meenu Garay MD [address] [place] [address] Physician Radiation Oncology 04/12/19 Mayco Galeano MD [address] [place] [address] Cardiology 08/18/22 Rip Rivers DO [address] [place] [address] Hematology/Oncology 10/14/23 Neuro Ophthalmologist Relationship Specialty Start Date End Date Eliot Billingsley MD [address] [place] [address] PCP - General Family Medicine 07/04/24 Meenu Garay MD [address] [place] [address] Physician Radiation Oncology 09/06/16 Carla Almonte RN Specialty Dandy Tender Oncology 07/06/17 Meenu Garay MD [address] [place] [address] Physician Radiation Oncology 04/12/19 Mayco Galeano MD [address] [place] [address] Cardiology 08/18/22 Rip Rivers DO [address] [place] [address] Hematology/Oncology 10/14/23 Neuro Ophthalmologist Relationship Specialty Start Date End Date Eliot Billingsley MD [address] [place] [address] PCP - General Family Medicine 07/04/24 Meenu Garay MD [address] [place] [address] Physician Radiation Oncology 09/06/16 Carla Almonte RN Specialty Dandy Tender Oncology 07/06/17 Meenu Garay MD [address] [place] [address] Physician Radiation Oncology 04/12/19 Mayco Galeano MD [address] [place] [address] Cardiology 08/18/22 Rip Rivers DO [address] [place] [address] Hematology/Oncology 10/14/23 Neuro Ophthalmologist Relationship Specialty Start Date End Date Eliot Billingsley MD [address] [place] [address] PCP - General Family Medicine 07/04/24 Meenu Garay MD [address] [place] [address] Physician Radiation Oncology 09/06/16 Carla Almonte RN Specialty Dandy Tender Oncology 07/06/17 Meenu Garay MD [address] [place] [address] Physician Radiation Oncology 04/12/19 Mayco Galeano MD [address] [facility] [place], [place] [address] Cardiology 08/18/22 Rip Rivers DO [address] [place] [address] Hematology/Oncology 10/14/23 Neuro Ophthalmologist Relationship Specialty Start Date End Date Eliot Billingsley MD [address] [place] [address] PCP - General Family Medicine 07/04/24 Meenu Garay MD [address] [place] [address] Physician Radiation Oncology 09/06/16 Carla Almonte RN Specialty Dandy Tender Oncology 07/06/17 Meenu Garay MD [address] [place] [address] Physician Radiation Oncology 04/12/19 Mayco Galeano MD [address] [place] [address] Cardiology 08/18/22 Rip Rivers DO [address] [place] [address] Hematology/Oncology 10/14/23 Neuro Ophthalmologist Relationship Specialty Start Date End Date Eliot Billingsley MD [address] [place] [address] PCP - General Family Medicine 07/04/24 Meenu Garay MD [address] [place] [address] Physician Radiation Oncology 09/06/16 Carla Almonte RN Specialty Dandy Tender Oncology 07/06/17 Meenu Garay MD [address] [place] [address] Physician Radiation Oncology 04/12/19 Mayco Galeano MD [address] [place] [address] Cardiology 08/18/22 Rip Rivers DO [address] [place] [address] Hematology/Oncology 10/14/23 Neuro Ophthalmologist Relationship Specialty Start Date End Date Eliot Billingsley MD [address] [place] [address] PCP - General Family Medicine 07/04/24 Meenu Garay MD [address] [place] [address] [phone] Physician Radiation Oncology 09/06/16 Carla Almonte RN Specialty Dandy Tender Oncology 07/06/17 Meenu Garay MD [address] [place], [place] 740904 [phone] Physician Radiation Oncology 04/12/19 Mayco Galeano MD [facility] [address], [place] [address] Cardiology 08/18/22 Rip Rivers DO [address] [place], [place] [address] Hematology/Oncology 10/14/23 Neuro Ophthalmologist Relationship Specialty Start Date End Date Eliot Billingsley MD [address] [place] [address] PCP - General Family Medicine 07/04/24 Meenu Garay MD [address] [place] [address] Physician Radiation Oncology 09/06/16 Carla Almonte RN Specialty Dandy Tender Oncology 07/06/17 Meenu Garay MD [address] [place] [address] Physician Radiation Oncology 04/12/19 Mayco Galeano MD [address] [place] [address] Cardiology 08/18/22 Rip Rivers DO [address] [place] [address] Hematology/Oncology 10/14/23 Neuro Ophthalmologist Relationship Specialty Start Date End Date Eliot Billingsley MD [address] [place] [address] PCP - General Family Medicine 07/04/24 Meenu Garay MD [address] [place] [address] Physician Radiation Oncology 09/06/16 Carla Almonte RN Specialty Dandy Tender Oncology 07/06/17 Meenu Garay MD [address] [place] [address] Physician Radiation Oncology 04/12/19 Mayco Galeano MD [address] [place] [address] Cardiology 08/18/22 Rip Rivers DO [address] [place] [address] Hematology/Oncology 10/14/23 Neuro Ophthalmologist Relationship Specialty Start Date End Date Eliot Billingsley MD [address] [place] [address] PCP - General Family Medicine 07/04/24 Meenu Garay MD [address] [place] [address] Physician Radiation Oncology 09/06/16 Carla Almonte RN Specialty Dandy Tender Oncology 07/06/17 Meenu Garay MD [address] [place] [address] Physician Radiation Oncology 04/12/19 Mayco Galeano MD [address] [place] [address] Cardiology 08/18/22 Rip Rivers DO [address] [place] [address] Hematology/Oncology 10/14/23 Neuro Ophthalmologist Relationship Specialty Start Date End Date Eliot Billingsley MD [address] [place] [address] PCP - General Family Medicine 07/04/24 Meenu Garay MD [address] [place] [address] Physician Radiation Oncology 09/06/16 Carla Almonte RN Specialty Dandy Tender Oncology 07/06/17 Meenu Garay MD [address] [place] [address] Physician Radiation Oncology 04/12/19 Mayco Galeano MD [address] [place] [address] Cardiology 08/18/22 Rip Rivers DO [address] [place] [phone] Hematology/Oncology 10/14/23 Neuro Ophthalmologist Relationship Specialty Start Date End Date Eliot Billingsley MD [address] [place] [address] PCP - General Family Medicine 07/04/24 Meenu Garay MD [address] [place] [address] Physician Radiation Oncology 09/06/16 Carla Almonte RN Specialty Dandy Tender Oncology 07/06/17 Meenu Garay MD [address] [place] [address] Physician Radiation Oncology 04/12/19 Mayco Galeano MD [address] [facility] [place] [address] Cardiology 08/18/22 Rip Rivers DO [address] [place] [address] Hematology/Oncology 10/14/23 Neuro Ophthalmologist Relationship Specialty Start Date End Date Eliot Billingsley MD [address] [place] [address] PCP - General Family Medicine 07/04/24 Meenu Garay MD [address] [place] [address] Physician Radiation Oncology 09/06/16 Carla Almonte RN Specialty Dandy Tender Oncology 07/06/17 Meenu Garay MD [address] [place] [address] Physician Radiation Oncology 04/12/19 Mayco Galeano MD [address] [place] [address] Cardiology 08/18/22 Rip Rivers DO [address] [place] [address] Hematology/Oncology 10/14/23 Neuro Ophthalmologist Relationship Specialty Start Date End Date Eliot Billingsley MD [address] [place] [address] PCP - General Family Medicine 07/04/24 Meenu Garay MD [address] [place] [address] Physician Radiation Oncology 09/06/16 Carla Almonte RN Specialty Dandy Tender Oncology 07/06/17 Meenu Garay MD [address] [place] [address] Physician Radiation Oncology 04/12/19 Mayco Galeano MD [address] [place] [address] Cardiology 08/18/22 Rip Rivers DO [address] [place] [address] Hematology/Oncology 10/14/23 Team Status: Active Member Role Status Dates Dr. Eliot Billingsley MD Primary Care Provider Active Team Status: Inactive Member Role Status Dates Dr. Rip Rivers DO Attending Provider Active St art: September 13, 2024 End: September 13, 2024 Dr. Rip Rivers DO Referring Provider Active St art: September 13, 2024 End: September 13, 2024 Dr. Eliot Billingsley MD Primary Care Provider Active Start: September 13, 2024 End: September 13, 2024 Team Status: Active Member Role Status Dates Dr. Eliot Billingsley MD Primary Care Provider Active Start: September 13, 2024 Dr. Mayco Galeano MD Attending Provider Active S tart: September 13, 2024 Neuro Ophthalmologist Relationship Specialty Start Date End Date Eliot Billingsley MD [address] [facility] [address] [place], [place] [id number] PCP - General Family Medicine 09/28/24 Neuro Ophthalmologist Relationship Specialty Start Date End Date Eliot Billingsley MD [address] [place] [address] PCP - General Family Medicine 07/04/24 Meenu Garay MD [address] [place], [place] [address]91 Physician Radiation Oncology 09/06/16 Carla Almonte RN Specialty Dandy Tender Oncology 07/06/17 Meenu Garay MD [address] [place] [address]21 Physician Radiation Oncology 04/12/19 Mayco Galeano MD [address] [address] Cardiology 08/18/22 Rip Rivers DO [address] [place] [address] Hematology/Oncology 10/14/23 Neuro Ophthalmologist Relationship Specialty Start Date End Date Eliot Billingsley MD [address] [place] [phone] PCP - General Family Medicine 07/04/24 Meenu Garay MD [address] [place] [address] Physician Radiation Oncology 09/06/16 Carla Almonte RN Specialty Dandy Tender Oncology 07/06/17 Meenu Garay MD [address] [place] [address] Physician Radiation Oncology 04/12/19 Mayco Galeano MD [address] [facility] [place] [address] Cardiology 08/18/22 Rip Rivers DO [address] [place] [address] Hematology/Oncology 10/14/23 Neuro Ophthalmologist Relationship Specialty Start Date End Date Eliot Billingsley MD [address] [place] [address] PCP - General Family Medicine 07/04/24 Meenu Garay MD [address] [place] [address] Physician Radiation Oncology 09/06/16 Carla Almonte RN Specialty Dandy Tender Oncology 07/06/17 Meenu aGray MD [address] [place] [address] Physician Radiation Oncology 04/12/19 Mayco Galeano MD [address] [place] [address] Cardiology 08/18/22 Rip Rivers DO [address] [place] [address] Hematology/Oncology 10/14/23 Neuro Ophthalmologist Relationship Specialty Start Date End Date Eliot Billingsley MD [address] [place] [address] PCP - General Family Medicine 07/04/24 Meenu Garay MD [address] [place] [address] Physician Radiation Oncology 09/06/16 Carla Almonte, PRINCE Specialty Dandy Tender Oncology 07/06/17 Meenu Garay MD [address] [place] [address] Physician Radiation Oncology 04/12/19 Mayco Galeano MD [address] [place] [address] Cardiology 08/18/22 Rip Rivers DO [address] [place] [address] Hematology/Oncology 10/14/23 Neuro Ophthalmologist Relationship Specialty Start Date End Date Eliot Billingsley MD [address] [place] [address] PCP - General Family Medicine 07/04/24 Meenu Garay MD [address] [place] [address] Physician Radiation Oncology 09/06/16 Carla Almonte RN Specialty Dandy Tender Oncology 07/06/17 Meenu Garay MD [address] [place] [address] Physician Radiation Oncology 04/12/19 Mayco Galeano MD [address] [place] [address], [place] [address] Cardiology 08/18/22 Rip Rivers DO [address] [place] [address] Hematology/Oncology 10/14/23 Neuro Ophthalmologist Relationship Specialty Start Date End Date Eliot Billingsley MD [address] [place] [address] PCP - General Family Medicine 07/04/24 Meenu Garay MD [address] [place] [address] Physician Radiation Oncology 09/06/16 Carla Almonte RN Specialty Dandy Tender Oncology 07/06/17 Meenu Garay MD [address] [place] [address] Physician Radiation Oncology 04/12/19 Mayco Galeano MD [address] [place] [address] Cardiology 08/18/22 Rip Rivers DO [address] [place] [address] Hematology/Oncology 10/14/23 Neuro Ophthalmologist Relationship Specialty Start Date End Date Eliot Billingsley MD [address] [facility] [place] [address] PCP - General Family Medicine 07/04/24 Meenu Garay MD [address] [place] [address] Physician Radiation Oncology 09/06/16 Carla Almonte RN Specialty Dandy Tender Oncology 07/06/17 Meenu Garay MD [address] [place] [address] Physician Radiation Oncology 04/12/19 Mayco Galeano MD [address] [place] [address] Cardiology 08/18/22 Rip Rivers DO [address] [place] [address] Hematology/Oncology 10/14/23 Neuro Ophthalmologist Relationship Specialty Start Date End Date Eliot Billingsley MD [address] [place] [address] PCP - General Family Medicine 07/04/24 Meenu Garay MD [address] [place] [address] Physician Radiation Oncology 09/06/16 Carla Almonte RN Specialty Dandy Tender Oncology 07/06/17 Meenu Garay MD [address] [place] [address] Physician Radiation Oncology 04/12/19 Mayco Galeano MD [address] [place] [address] Cardiology 08/18/22 Rip Rivers DO [address] [place] [address] Hematology/Oncology 10/14/23 Neuro Ophthalmologist Relationship Specialty Start Date End Date Eliot Billingsley MD [address] [place] [address] PCP - General Family Medicine 07/04/24 Meenu Garay MD [address] [place] [address] Physician Radiation Oncology 09/06/16 Carla Almonte RN Specialty Dandy Tender Oncology 07/06/17 Meenu Garay MD [address] [place] [address] Physician Radiation Oncology 04/12/19 Mayco Galeano MD [address] [place] [address] Cardiology 08/18/22 Rip Rivers DO [address] [place] [address] Hematology/Oncology 10/14/23 Team Status: Active Member Role/Relationship Status Dates Dr. Eliot Billingsley MD Primary Care Provider Active Team Status: Inactive Member Role/Relationship Status Dates Dr. Rip Rivers DO Attending Provider Active St art: September 13, 2024 End: September 13, 2024 Dr. Rip Rivers DO Referring Provider Active St art: September 13, 2024 End: September 13, 2024 Dr. Eliot Billingsley MD Primary Care Provider Active Start: September 13, 2024 End: September 13, 2024 Team Status: Active Member Role/Relationship Status Dates Dr. Eliot Billingsley MD Primary Care Provider Active Start: September 13, 2024 Dr. Mayco Galeano MD Attending Provider Active S tart: September 13, 2024 Team Status: Inactive Member Role/Relationship Status Dates Dr. Eliot Billingsley MD Primary Care Provider Active Start: December 19, 2024 End: December 19, 2024 Caity Cote DOCUMENTATION SPEC, DOCUMENTATION SPEC-C Attending Provider Active Start: December 19, 2024 End: December 19, 2024 Caity Cote DOCUMENTATION SPEC, DOCUMENTATION SPEC-C Referring Provider Active Start: December 19, 2024 End: December 19, 2024 Team Status: Active Member Role/Relationship Status Dates Dr. Eliot Billingsley MD Primary Care Provider Active Start: December 19, 2024 Dr. Mayco Galeano MD Attending Provider Active S tart: December 19, 2024 Neuro Ophthalmologist Relationship Specialty Start Date End Date Eliot Billingsley MD [address] [place] [address] PCP - General Family Medicine 07/04/24 Meenu Garay MD [address] [place], [place] [address] Physician Radiation Oncology 09/06/16 Carla Almonte RN Specialty Dandy Tender Oncology 07/06/17 Meenu Garay MD [address] [place], [place] [address] [phone] Physician Radiation Oncology 04/12/19 Mayco Galeano MD [address] [place] [address] Cardiology 08/18/22 Rip Rivers DO [address] [place] [address] Hematology/Oncology 10/14/23 Neuro Ophthalmologist Relationship Specialty Start Date End Date Eliot Billingsley MD [address] [place] [address] PCP - General Family Medicine 07/04/24 Meenu Garay MD [address] [place] [address] Physician Radiation Oncology 09/06/16 Carla Almonte, PRINCE Specialty Dandy Tender Oncology 07/06/17 Meenu Garay MD [address] [place] [address] Physician Radiation Oncology 04/12/19 Mayco Galeano MD [address] [place] [address] Cardiology 08/18/22 Rip Rivers DO [address] [place] [address] Hematology/Oncology 10/14/23 Neuro Ophthalmologist Relationship Specialty Start Date End Date Rupali Mirza NP [facility] [place] [address] PCP - General Family Medicine 01/14/25 Meenu Garay MD [address] [place], [place] [address] Physician Radiation Oncology 09/06/16 Carla Almonte RN Specialty Dandy Tender Oncology 07/06/17 Meenu Garay MD [address] [place] [address] Physician Radiation Oncology 04/12/19 Mayco Galeano MD [address] [place] [address] Cardiology 08/18/22 Rip Rivers DO [address] [place] [address] Hematology/Oncology 10/14/23 Neuro Ophthalmologist Relationship Specialty Start Date End Date Rupali Mirza NP [address] [place] [address] [place], [place] 365801 PCP - General Family Medicine 01/14/25 Meenu Garay MD [address] [place] [address] Physician Radiation Oncology 09/06/16 Carla Almonte RN Specialty Dandy Tender Oncology 07/06/17 Meenu Garay MD [address] [place] [address] Physician Radiation Oncology 04/12/19 Mayco Galeano MD [address] [place] [address] Cardiology 08/18/22 Rip Rivers DO [address] [place], [place] [address] Hematology/Oncology 10/14/23 Neuro Ophthalmologist Relationship Specialty Start Date End Date Rupali Mirza NP [address] [facility] [place] [address] PCP - General Family Medicine 01/14/25 Meenu Garay MD [address] [place], [place] [address] [phone] Physician Radiation Oncology 09/06/16 Carla Almonte RN Specialty Dandy Tender Oncology 07/06/17 Meenu Garay MD [address] [place] [address] [phone] Physician Radiation Oncology 04/12/19 Mayco Galeano MD [address] [facility] [place] [id number] Cardiology 08/18/22 Rip Rivers DO [address] [place], [place] [address] [phone] Hematology/Oncology 10/14/23 Neuro Ophthalmologist Relationship Specialty Start Date End Date Rupali Mirza NP [address] [facility] [place] [id number] PCP - General Family Medicine 01/14/25 Meenu Garay MD [address] [place] [address] [phone] Physician Radiation Oncology 09/06/16 Carla Almonte RN Specialty Dandy Tender Oncology 07/06/17 Meenu Garay MD [address] [place] [address] Physician Radiation Oncology 04/12/19 Mayco Galeano MD [address] [place] [address] Cardiology 08/18/22 Rip Rivers DO [address] [place] [address] Hematology/Oncology 10/14/23 Neuro Ophthalmologist Relationship Specialty Start Date End Date Rupali Mirza NP [address] [place] [address] [place] [address] PCP - General Family Medicine 01/14/25 Meenu Garay MD [address] [place] [address] Physician Radiation Oncology 09/06/16 Carla Almonte RN Specialty Dandy Tender Oncology 07/06/17 Meenu Garay MD [address] [place] [address] Physician Radiation Oncology 04/12/19 Mayco Galeano MD [address] [place] [address] Cardiology 08/18/22 Rip Rivers DO [address] [place] [address] Hematology/Oncology 10/14/23 Neuro Ophthalmologist Relationship Specialty Start Date End Date Rupali Mirza NP [address] [facility] [place] [address] PCP - General Family Medicine 01/14/25 Meenu Garay MD [address] [place], [place] 431501 Physician Radiation Oncology 09/06/16 Carla Almonte RN Specialty Dandy Tender Oncology 07/06/17 Meenu Garay MD [address] [place], [place] [address]71 Physician Radiation Oncology 04/12/19 Mayco Galeano MD [address] [place], [place] [address] Cardiology 08/18/22 Rip Rivers DO [address] [place], [place] [address] Hematology/Oncology 10/14/23 Neuro Ophthalmologist Relationship Specialty Start Date End Date Rupali Mirza NP [address] [place] [address] [place] [address] PCP - General Family Medicine 01/14/25 Meenu Garay MD [address] [place], [place] [address] [phone] Physician Radiation Oncology 09/06/16 Carla Almonte RN Specialty Dandy Tender Oncology 07/06/17 Meenu Garay MD [address] [place] [address] Physician Radiation Oncology 04/12/19 Mayco Galeano MD [address] [address] Cardiology 08/18/22 Rip Rivers DO [address] [place], [place] 495081 Hematology/Oncology 10/14/23 Neuro Ophthalmologist Relationship Specialty Start Date End Date Eliot Billingsley MD [address] [place] [address] PCP - General Family Medicine 07/04/24 01/13/25 Ruplai Mirza NP [address] [place] [address] PCP - General Family Medicine 01/14/25 Meenu Garay MD [address] [place], [place] [address] Physician Radiation Oncology 09/06/16 Carla Almonte RN Specialty Dandy Tender Oncology 07/06/17 Meenu Garay MD [address] [place] [address] Physician Radiation Oncology 04/12/19 Mayco Galeano MD [address] [place], [place] [address] Cardiology 08/18/22 Rip Rivers DO [address] [place], [place] [address] Hematology/Oncology 10/14/23 Neuro Ophthalmologist Relationship Specialty Start Date End Date Rupali Mirza NP [facility] [place], [place] [address] PCP - General Family Medicine 01/14/25 Meenu Garay MD [address] [place], [place] [address] Physician Radiation Oncology 09/06/16 Carla Almonte RN Specialty Dandy Tender Oncology 07/06/17 Meenu Garay MD [address] [place], [place] [address] Physician Radiation Oncology 04/12/19 Mayco Galeano MD [address] [place] [address] Cardiology 08/18/22 Rip Rivers DO [address] [place] [address] Hematology/Oncology 10/14/23 Neuro Ophthalmologist Relationship Specialty Start Date End Date Rupali Mirza NP [address] [place] [address] [place] [address] PCP - General Family Medicine 01/14/25 Meenu Garay MD [address] [place] [address] Physician Radiation Oncology 09/06/16 Carla Almonte RN Specialty Dandy Tender Oncology 07/06/17 Meenu Garay MD [address] [place] [place], [place] [address] [phone] Physician Radiation Oncology 04/12/19 Mayco Galeano MD [address] [place] [address] Cardiology 08/18/22 Rip Rivers DO [address] [place] [address] Hematology/Oncology 10/14/23 Neuro Ophthalmologist Relationship Specialty Start Date End Date Rupali Mirza NP [facility] [facility] [place] [address] PCP - General Family Medicine 01/14/25 Meenu Garay MD [address] [place] [address] Physician Radiation Oncology 09/06/16 Carla Almonte, PRINCE Specialty Dandy Tender Oncology 07/06/17 Meenu Garay MD [address] [place] [address] Physician Radiation Oncology 04/12/19 Mayco Galeano MD [address] [place] [address] Cardiology 08/18/22 Rip Rivers DO [address] [place] [address] Hematology/Oncology 10/14/23 Neuro Ophthalmologist Relationship Specialty Start Date End Date Rupali Mirza NP [address] [place] [address] [place] [address] PCP - General Family Medicine 01/14/25 Meenu Garay MD [address] [place], [place] [address] Physician Radiation Oncology 09/06/16 Carla Almonte RN Specialty Dandy Tender Oncology 07/06/17 Meenu Garay MD [address] [place] [place], [place] [address] [phone] Physician Radiation Oncology 04/12/19 Mayco Galeano MD [address] [place] [address] Cardiology 08/18/22 Rip Rivers DO [address] [place] [address] Hematology/Oncology 10/14/23 Neuro Ophthalmologist Relationship Specialty Start Date End Date Rupali Mirza NP [address] [place] [address] [place] [id number] PCP - General Family Medicine 01/14/25 Meenu Garay MD [address] [place] [address] Physician Radiation Oncology 09/06/16 Carla Almonte RN Specialty Dandy Tender Oncology 07/06/17 Meenu Garay MD [address] [place] [place] [id number] [phone] Physician Radiation Oncology 04/12/19 Mayco Galeano MD [address] [place] [address] Cardiology 08/18/22 Rip Rivers DO [address] [facility] [place] [place] [address] Hematology/Oncology 10/14/23 Reason for Visit (unrecogniz ed section and content) Reason Comments Radiology NM Specialty Diagnoses / Procedures [facility] To Contact MOLECULAR & FUNCTIONAL IMAGING Diagnoses Malignant neoplasm of lower-inner quadrant of right breast of female, estrogen receptor positive (HCC) Bone metastases (HCC) Procedures NM PET/CT SKULL-THIGH INITIAL PET IMAGING CT ATTENUATION SKULL BASE MID-THIGH Rip Rivers, [address] [facility] [place] [address] Molecular & Functional Imaging [address] [place] [address] Referral ID Status Reason Start Date Expiration Date V isits Requested Visits Authorized [id number] Closed Auto-Generate d Referral 08/12/2021 09/11/2022 1 1 Reason Comments Established Patient Reason Comments Port Flush Reason Comments Dandy Tender - Other Follow-up/US Reason Comments Reason Comments Dandy Tender - Other Nutrition Consu lt/Treatment Question Reason Comments First Time Treatment Education Enhertu Reason Comments Benefits Investigation Reason Comments Radiology US Specialty Diagnoses / Procedures Referred By [facility] Referred To Contact US IMAGING Diagnoses Thyroid nodule Procedures US THYROID/PARATHYROID US SOFT TISSUE HEAD & NECK REAL TIME IMGE DOCM Rip Rivers, [address] [facility] [place] [address] Us Imaging Referral ID Status Reason Start Date Expiration Date V isits Requested Visits Authorized [id number] Closed Auto-Generate d Referral 09/02/2021 10/02/2022 1 1 Reason Comments Social Work Services Reason Comments Nutrition Assessment Reason Comments Chemotherapy Treatment Specialty Diagnoses / Procedures Referred By [facility] Referred To Contact Diagnoses Malignant neoplasm of lower-inner quadrant of right breast of female, estrogen receptor positive (HCC) Malignant neoplasm metastatic to lung, unspecified laterality (HCC) Bone metastases (HCC) Rip Rivers DO [address] [facility] [place] [address] [facility] [address] [place] [address] Referral ID Status Reason Start Date Expiration Date V isits Requested Visits Authorized [id number] Authorized 09/02/2021 12/01/2021 99 99 Reason Comments Dandy Tender - Other C1D1 Post Treat ment Call Reason Comments Blood Draw (CVAD) Reason Comments Established Patient Reason Comments Orders Reason Comments Established Patient Reason Comments Radiology CT Specialty Diagnoses / Procedures Referred By [facility] Referred To Contact CT IMAGING Diagnoses Malignant neoplasm of lower-inner quadrant of right breast of female, estrogen receptor positive (HCC) Bone metastases (HCC) Skin, 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) Malignant neoplasm of right breast in female, estrogen receptor positive, unspecified site of breast (HCC) Procedures CT CHEST W IVCON DIAGNOSTIC COMPUTED TOMOGRAPHY THORAX W/CONTRAST Caity Cote APRN.OLIVING MACHINE OPERATOR [address] [place] [address] Ct Imaging Referral ID Status Reason Start Date Expiration Date V isits Requested Visits Authorized [id number] Closed Auto-Generate d Referral 10/21/2021 11/20/2022 1 1 Reason Comments Non-Chemotherapy Treatment Specialty Diagnoses / Procedures Referred By [facility] Referred To Contact Diagnoses Chemotherapy induced diarrhea Bone metastases (HCC) Rip Rivers, DO [address] [place] [address] [facility] [address] [place] [address] Referral ID Status Reason Start Date Expiration Date V isits Requested Visits Authorized [id number] Authorized 04/09/2021 07/08/2021 99 99 Reason Comments Follow Up Specialty Diagnoses / Procedures Referred By [facility] Referred To Contact Diagnoses Malignant neoplasm of lower-inner quadrant of right breast of female, estrogen receptor positive (HCC) Malignant neoplasm metastatic to lung, unspecified laterality (HCC) Bone metastases (HCC) Rip Rivers, DO [address] [facility] [place] [address] [facility] [address] [place] [address] Reason Comments Follow Up review labs for chem o tomorrow Reason Comments Established Patient Reason Comments Orders Specialty Diagnoses / Procedures Referred By [facility] Referred To Contact CT IMAGING Diagnoses Malignant neoplasm of lower-inner quadrant of right breast of female, estrogen receptor positive (HCC) Bone metastases (HCC) Malignant neoplasm metastatic to both lungs (HCC) Skin, 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) Procedures CT CHEST W IVCON DIAGNOSTIC COMPUTED TOMOGRAPHY THORAX W/CONTRAST Caity Cote APRN.OLIVING MACHINE OPERATOR [address] [place] [address] Ct Imaging Referral ID Status Reason Start Date Expiration Date V isits Requested Visits Authorized [id number] Closed Auto-Generate d Referral 12/23/2021 01/22/2023 1 1 Specialty Diagnoses / Procedures Referred By [facility] Referred To Contact Diagnoses Malignant neoplasm of lower-inner quadrant of right breast of female, estrogen receptor positive (HCC) Malignant neoplasm metastatic to lung, unspecified laterality (HCC) Bone metastases (HCC) Rip Rivers, DO [address] [place] [address] [facility] [address] [place] [address] Reason Comments Refill Request Reason Comments Patient Update Reason Comments AVS Reason Comments Electronic Communication Reason Comments CVAD Access Reason Comments Results Low potassium Reason Comments handicapp placard request Reason Comments Patient Question Reason Comments Results CTs Specialty Diagnoses / Procedures Referred By [facility] Referred To Contact Diagnoses Malignant neoplasm of lower-inner quadrant of right breast of female, estrogen receptor positive (HCC) Malignant neoplasm metastatic to lung, unspecified laterality (HCC) Bone metastases Rpi Rivers, DO [address] [place] [address] [facility] [address] [place] [address] Reason Onset Date Comments Refill Request 09/29/2022 Reason Comments echo results Reason Comments Follow Up Reason Comments Research Consent CAREVIVE Reason Comments Results Screening mammogram Reason Comments Research Reason Comments Consult Reason Onset Date Comments Simulation Request Form 02/08/2023 Reason Comments Patient Education Reason Comments symptoms Reason Comments Radiotherapy On-treatment Visit Specialty Diagnoses / Procedures Referred By [facility] Referred To Contact Diagnoses Malignant neoplasm of lower-inner quadrant of right breast of female, estrogen receptor positive (HCC) Malignant neoplasm metastatic to lung, unspecified laterality (HCC) Bone metastases Rip Rivers, DO [address] [place] [address] [facility] [address] [place] [address] Reason Comments Results Reason Comments Future Appointment Reason Comments Recheck Specialty Diagnoses / Procedures Referred By [facility] Referred To Contact CT IMAGING Diagnoses Malignant neoplasm metastatic to bone (HCC) Procedures CT CHEST WO IVCON DIAGNOSTIC COMPUTED TOMOGRAPHY THORAX W/O CNTRST Rip Rivers, DO [address] [place] [address] [place] [address] Referral ID Status Reason Start Date Expiration Date V isits Requested Visits Authorized [id number] Closed Auto-Generate d Referral 02/23/2023 03/24/2024 1 1 Specialty Diagnoses / Procedures [facility] Ref[facility] To Contact CT IMAGING Diagnoses Malignant neoplasm of lower-inner quadrant of right breast of female, estrogen receptor positive (HCC) Bone metastases Malignant neoplasm metastatic to both lungs (HCC) Procedures CT CHEST W IVCON DIAGNOSTIC COMPUTED TOMOGRAPHY THORAX W/CONTRAST Rip Rivers, DO [address] [place] [address] [place] [address] Referral ID Status Reason Start Date Expiration Date V isits Requested Visits Authorized [id number] Closed Auto-Generate d Referral 07/30/2022 08/29/2023 1 1 Referral ID Status Reason Start Date Expiration Date V isits Requested Visits Authorized [id number] Closed Auto-Generate d Referral 07/06/2022 08/05/2023 1 [...] THORAX W/CONTRAST Rip Rivers, DO [address] [place] [address] Ct Imaging [id number] Referral ID Status Reason Start Date Expiration Date V isits Requested Visits Authorized [id number] Closed Auto-Generate d Referral 12/22/2022 01/21/2024 1 1 Specialty Diagnoses / Procedures Referred By [facility] t Referred To Contact CT IMAGING Diagnoses Malignant neoplasm of lower-inner quadrant of right breast of female, estrogen receptor positive (HCC) Bone metastases Procedures CT CHEST W IVCON DIAGNOSTIC COMPUTED TOMOGRAPHY THORAX W/CONTRAST Caity Cote APRN.OLIVING MACHINE OPERATOR [address] [place] [address] Ct Imaging [id number] Referral ID Status Reason Start Date Expiration Date V isits Requested Visits Authorized [id number] Closed Auto-Generate d Referral 04/14/2022 05/14/2023 1 1 Reason Onset Date Comments Refill Request 04/25/2023 Specialty Diagnoses / Procedures Referred By [facility] Referred To Contact Diagnoses Malignant neoplasm of lower-inner quadrant of right breast of female, estrogen receptor positive (HCC) (HCC) Malignant neoplasm metastatic to lung, unspecified laterality (HCC) Bone metastases Rip Rivers, DO [address] [place] [address] [facility] [address] [place] [address] Specialty Diagnoses / Procedures Referred By [facility] t Referred To Contact CT IMAGING Diagnoses Malignant neoplasm metastatic to left lung (HCC) Procedures CT CHEST WO IVCON DIAGNOSTIC COMPUTED TOMOGRAPHY THORAX W/O CNTRST Meenu Garay MD [address] [place] [address] [place] [address] Referral ID Status Reason Start Date Expiration Date V isits Requested Visits Authorized [id number] Closed Auto-Generate d Referral 08/03/2023 07/07/2024 1 1 Reason Comments Recheck Specialty Diagnoses / Procedures Referred By [facility] t Referred To Contact Diagnoses Malignant neoplasm of lower-inner quadrant of right breast of female, estrogen receptor positive (HCC) Malignant neoplasm metastatic to lung, unspecified laterality (HCC) Bone metastases Rip Rivers, DO [address] [place] [address] [facility] [address] [place] [address] Reason Comments Radiology NM Reason Comments Appointment [...] W/IMAGE LIMITED Rip Rivers, DO [address] [place] [address] [place] [address] Referral ID Status Reason Start Date Expiration Date V isits Requested Visits Authorized [id number] Closed Auto-Generate d Referral 08/30/2023 2024 1 1 Specialty Diagnoses / Procedures Referred By [facility] t Referred To Contact Diagnoses Malignant neoplasm of lower-inner quadrant of right breast of female, estrogen receptor positive (HCC) Malignant neoplasm metastatic to lung, unspecified laterality (HCC) Malignant neoplasm metastatic to bone (HCC) HER2-positive carcinoma of breast (HCC) Rip Rivers, DO [address] [place] [address] [facility] [address] [place] [address] Referral ID Status Reason Start Date Expiration Date V isits Requested Visits Authorized [id number] Authorized 08/30/2023 11/28/2023 99 99 Reason Onset Date Comments Simulation Request Form 09/12/2023 Reason Comments Patient Education Discharge instructio ns-completed radiation Reason Comments Question Reason Comments Dandy Tender - Other Oral Follow-up Reason Onset Date Comments SPP Oral Oncology/hematology - Medication Refill 11/01/2023 Capecitabine 500mg Reason Comments Dandy Tender - Other Oral Anti-Cance r Agents Follow-up Reason Comments Medication Question Reason Comments Establish Care DOCUMENTATION SPEC/EST CARE Reason Onset Date Comments SPP Oral Oncology/hematology - Medication Refill 12/07/2023 Capecitabine 500mg Specialty Diagnoses / Procedures [facility] Ref[facility] To Contact CT IMAGING Diagnoses Malignant neoplasm of lower-inner quadrant of right breast of female, estrogen receptor positive (HCC) Malignant neoplasm metastatic to lung, unspecified laterality (HCC) Malignant neoplasm metastatic to bone (HCC) 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) Procedures CT CHEST W IVCON DIAGNOSTIC COMPUTED TOMOGRAPHY THORAX W/CONTRAST Caity Cote APRN.OLIVING MACHINE OPERATOR [address] [place] [address] [place] [address] Referral ID Status Reason Start Date Expiration Date V isits Requested Visits Authorized [id number] Closed Auto-Generate d Referral 12/14/2023 01/12/2025 1 [...] W/O CNTRST Rip Rivers DO [address] [facility] [place] [address] [place] [address] Referral ID Status Reason Start Date Expiration Date V isits Requested Visits Authorized [id number] Closed Auto-Generate d Referral 01/04/2024 02/02/2025 1 1 Reason Comments Results Reason Comments Dandy Tender - Other Follow-up Reason Comments Question Reason [...] Capecitabine Specialty Diagnoses / Procedures [facility] Ref[facility] To Contact CT IMAGING Diagnoses Malignant neoplasm of lower-inner quadrant of right breast of female, estrogen receptor positive (HCC) Malignant neoplasm metastatic to bone (HCC) Malignant neoplasm metastatic to both lungs (HCC) Procedures CT ABD/PEL W IVCON CT ABD & PELVIS W/CONTRAST Rip Rivers, DO [address] [facility] [place] [address] [place] [address] Referral ID Status Reason Start Date Expiration Date V isits Requested Visits Authorized [id number] Closed Auto-Generate d Referral 03/21/2024 04/20/2025 1 1 Specialty Diagnoses / Procedures [facility] Ref[facility] To Contact CT [facility]ING Diagnoses Malignant neoplasm of lower-inner quadrant of right breast of female, estrogen receptor positive (HCC) Malignant neoplasm metastatic to bone (HCC) Malignant neoplasm metastatic to both lungs (HCC) Procedures CT ABD/PEL W IVCON CT ABD & PELVIS W/CONTRAST Rip Rivers, DO [address] [place] [address] [place] [address] Reason Onset Date Comments SPP Oral Oncology/hematology - Medication Refill 05/14/2024 Capecitabine Reason Onset Date Comments SPP Oral Oncology/hematology - Medication Refill 06/04/2024 Capecitabine Reason Onset Date Comments SPP Oral Oncology/hematology - Medication Refill 06/29/2024 Capecitabine 500mg Reason Comments Medication Request Reason Comments 2024 Patient Assistance Reason Onset Date Comments SPP Oral Oncology/hematology - Medication Refill 07/16/2024 Capecitabine 500mg Specialty Diagnoses / Procedures [facility] Referred To Contact Diagnoses Malignant neoplasm of lower-inner quadrant of right breast of female, estrogen receptor positive (HCC) Malignant neoplasm metastatic to lung, unspecified laterality (HCC) Malignant neoplasm metastatic to bone (HCC) HER2-positive carcinoma of breast (HCC) Rip Rivers, DO [address] [place] [address] Phone: tel: fax: Hematology/Oncology [address] [place] [address] Phone: tel: fax: Reason Comments Tukysa Assistance Reason Comments Established Patient Reason Onset Date Comments SPP Oral Oncology/hematology - Medication Refill 08/27/2024 Capecitabine 500mg Specialty Diagnoses / Procedures [facility] Referred To Contact US IMAGING Diagnoses History of thyroid nodule Procedures US THYROID/PARATHYROID US SOFT TISSUE HEAD & NECK REAL TIME IMGE DOCM Rip Rivers, DO [address] [place] [address] Phone: tel: fax: [place] [address] Referral ID Status Reason Start Date Expiration Date V isits Requested Visits Authorized [id number] Closed Auto-Generate d Referral 08/15/2024 09/14/2025 1 1 Specialty Diagnoses / Procedures Referred By [facility] Referred To Contact CT IMAGING Diagnoses Malignant neoplasm of lower-inner quadrant of right breast of female, estrogen receptor positive (HCC) Malignant neoplasm metastatic to bone (HCC) Malignant neoplasm metastatic to both lungs (HCC) Procedures CT ABD/PEL W IVCON CT ABD & PELVIS W/CONTRAST Rip Rivers, DO [address] [place] [address] Phone: tel: fax: [place] [address] Referral ID Status Reason Start Date Expiration Date V isits Requested Visits Authorized [id number] Closed Auto-Generate d Referral 08/15/2024 09/14/2025 1 1 Reason Onset Date Comments SPP Oral Oncology/hematology - Medication Refill 09/17/2024 Capecitabine 500mg Reason Comments Fever Reason Comments Results Xrays done on 5; URI pneumonia of right lung Medicare Annual Wellness Visit George moore Reason Onset Date Comments SPP Oral Oncology/hematology - Medication Refill 11/15/2024 Capecitabine 500mg Reason Onset Date Comments SPP Oral Oncology/hematology - Medication Refill 12/05/2024 Capecitabine 500 mg Specialty Diagnoses / Procedures Referred By Carmen moore Referred To Contact CT IMAGING Diagnoses Malignant neoplasm of lower-inner quadrant of right breast of female, estrogen receptor positive (HCC) HER2-positive carcinoma of breast (HCC) Malignant neoplasm metastatic to bone (HCC) Malignant neoplasm metastatic to both lungs (HCC) Chemotherapy-induced cardiomyopathy (HCC) Procedures CT CHEST W IVCON DIAGNOSTIC COMPUTED TOMOGRAPHY THORAX W/CONTRAST Caity Cote APRN.OLIVING MACHINE OPERATOR [address] [place] [address] Phone: tel: fax: [place] [address] Referral ID Status Reason Start Date Expiration Date V isits Requested Visits Authorized [id number] Closed Auto-Generate d Referral 12/26/2024 01/11/2026 1 1 Reason Onset Date Comments SPP Oral Oncology/hematology - Medication Refill 12/28/2024 Capecitabine 500 mg Reason Onset Date Comments SPP Oral Oncology/hematology - Medication Refill 01/18/2025 Capecitabine 500 mg Reason Onset Date Comments Refill Request 01/25/2025 Reason Comments Radiology NM Specialty Diagnoses / Procedures Referred By Carmen moore Referred To Contact MOLECULAR & FUNCTIONAL IMAGING Diagnoses Malignant neoplasm metastatic to bone (HCC) 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) Malignant neoplasm metastatic to lung, unspecified laterality (HCC) Procedures NM PET/CT SKULL-THIGH SUBSEQUENT PET IMAGING CT ATTENUATION SKULL BASE MID-THIGH Rip Rivers DO [address] [place] [address] Phone: tel: fax: Molecular Imaging [address] [place] [address] Phone: tel: Referral ID Status Reason Start Date Expiration Date V isits Requested Visits Authorized [id number] Closed Auto-Generate d Referral 01/11/2025 02/10/2026 1 1 Reason Comments AVS 12/12 Reason Onset Date Comments Refill Request 02/05/2025 Specialty Diagnoses / Procedures Referred By [facility] t Referred To Contact US IMAGING Diagnoses Nontoxic single thyroid nodule Procedures US THYROID/PARATHYROID US SOFT TISSUE HEAD & NECK REAL TIME IMGE DOCM Rip Rivers, DO [address] [place] [address] Phone: tel: fax: [place] [address] Referral ID Status Reason Start Date Expiration Date V isits Requested Visits Authorized [id number] Closed Auto-Generate d Referral 02/13/2025 03/15/2026 1 1 Goals (unrecognized section and content) Goals may [...] 15 Minutes, ONCE, 1 dose, On Amarilys 07/21/23 at 1400, Refrigerate. New Bag/Syringe/Bottle 07/21/2023 2:03 [...] 09/22/2023 1:22 PM EDT 506.4 mg zoledronic gs-ykcszrdc-6.9NaCl 4 mg iv piggyback 100 mL (ZOMETA) 4 mg, INTRAVENOUS, Administer over 15 Minutes, ONCE, 1 dose, On Amarilys 09/22/23 at 1300, Hazardous Potential Reproductive Risk Drug: Use appropriate PPE. New Bag/Syringe/Bottle 09/22/2023 1:00 PM EDT 4 mg INFORMATION SOURCE (unrecogn ized section and content) DATE CREATED AUTHOR 09/29/2024 [facility] DATE CREATED AUTHOR AUTHOR'S ORGANIZ ATION 12/26/2024 [facility] DATE CREATED AUTHOR AUTHOR'S ORGANIZ ATION 01/31/2025 [facility] DATE CREATED AUTHOR AUTHOR'S ORGANIZ ATION 03/08/2025 [facility] FOR RECORDS PERTAINING TO PATIENTS WHO ARE [...] BE BASED ON THE PRIMARY CLINICAL RECORDS. [employer] provides no warranty or guarantee of the accuracy or completeness of information in this document.
[2025-03-08 21:04] LABS: Troponin T High Sens 4 HR 43 ng/L (<=14)
[2025-03-08 21:17] LABS: Magnesium 1.6 mg/dL (1.5-2.2); Pro- Brain NATRIURETIC PEPTIDE 2749 pg/mL (<=900)
--- NOTE | 2025-03-08 21:29 | ECHOL_ITS ---
Reason For Study Reason For Study: DYSPNEA Procedure This was a limited 2D transthoracic echocardiogram. Exam performed portable in patient room. Left Ventricle Normal LV size. The estimated ejection fraction is 55 %. No regional wall motion abnormalities noted. Right Ventricle Normal RV size. Normal systolic function. Atria The left and right atria are normal. No doppler evidence for ASD. Mitral Valve There is no mitral valve stenosis. Tricuspid Valve There is no tricuspid stenosis. Aortic Valve Trisinus/trileaflet aortic valve. There is no aortic stenosis. Pericardium/Pleural No pericardial effusion. MMode/2D Measurements & Calculations LVIDd: 3.9 cm IVSd: 1.1 cm Ao root diam: 3.1 cm LVIDs: 2.9 cm LVPWd: 1.1 cm FS: 25.3 % LAV(MOD-bp): 45.9 ml SV(MOD-sp4): 36.6 ml LVAd ap4: 25.8 cm2 LAV(MOD-bp) Indexed: 25.8 ml/m2 LVLd ap4: 7.8 cm SI(MOD-sp4): 20.6 ml/m2 LAV(MOD-sp2): 43.3 ml EDV(MOD-sp4): 72.1 ml LAV(MOD-sp4): 42.9 ml EDV(sp4-el): 72.1 ml LVAs ap4: 16.7 cm2 LVLs ap4: 6.8 cm ESV(MOD-sp4): 35.5 ml ESV(sp4-el): 34.6 ml EF(MOD-sp4): 50.8 % EF(sp4-el): 52.0 % SV(sp4-el): 37.5 ml LA dimension(2D): 3.9 cm LA A4 area: 16.8 cm2 RA A4 area: 11.1 cm2 ECHO/Echo, Limited Study Interpretation Summary The estimated ejection fraction is 55 %. Ordering Physician: Emely Bai Referring Physician: RUPALI MIRZA Performed By: Amber Lou RCS
--- OUTSIDE RECORDS SUMMARY | 2025-03-08 22:23 | XMS RPT_ITS | CCD ---
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 Mitch Mejia Primary Care Provider Dr. Mayco Galeano Attending Provider Dr. Mitch Mejia Referring Provider Dr. Mitch Mejia Primary Care Provider Dr. Mayco Galeano Attending Provider Mitch Mejia Primary Care Provider Jarrod GR MD, Daesung Unavailable Gage RN, Carla Unavailable Unavailable Jarrod RG MD, Daesung Unavailable Chanelle Westfall RN Unavailable Mitch Mejia Primary Care Provider Chanelle Westfall RN Unavailable Mitch Mejia Primary Care Provider Jarrod RG MD, Daesung Unavailable Gage RN, Carla Unavailable Unavailable Jarrod RG MD, Daesung Unavailable Khoi MORRISON, Chanelle Unavailable Dr. Mitch Mejia Primary Care Provider Dr. Mayco Galeano Attending Provider Dr. Mitch Mejia Referring Provider Dr. Mitch Mejia Primary Care Provider Dr. Mayco Galeano Attending Provider Waleska, [place] S Unavailable Khoi RN, Chanelle Unavailable Waleska, Mayco S Unavailable Gage MORRISON, Carla Unavailable Unavailable Dr. Mitch Mejia Primary Care Provider Dr. Mayco Galeano Attending Provider Dr. Mitch Mejia Referring Provider Trey FRAZIER, JOANNE Jackson Attending Provider Dr. Gurvinder Dill Emergency Provider Dr. Luis Stratton Admit Provider Dr. Luis Stratton Other Provider Dr. Malika Garay Attending Provider Dr. Malika Garay Other Provider Waleska RG, Mayco S Unavailable Mitch Mejia MD Primary Care Provider Khoi MORRISON, Chanelle Unavailable Williams Farrell DO Primary Care Provider Dr. Mitch Mejia Primary Care Provider Dr. Gurvinder Dill Emergency Provider Dr. Luis Stratton Admit Provider Dr. Luis Stratton Other Provider Dr. Malika Garay Attending Provider Dr. Malika Garay Other Provider Dr. Williams Farrell Primary Care Provider Dr. Mayco Galeano Attending Provider Dr. Mitch Mejia Referring Provider Trey PRINCIPAL PLANNER, PRINCIPAL PLANNER-C Renetta Attending Provider Jarrod RG, Meenu Unavailable Jarrod RG, Meenu Unavailable Dr. Williams Farrell Primary Care Provider Dr. Mayco Galeano Attending Provider Dr. Mitch Mejia Referring Provider Trey FRAZIER, PRINCIPAL PLANNER-C Renetta Attending Provider Williams Farrell DO Primary Care Provider Rip Rivers DO Unavailable Williams Farrell DO Primary Care Provider Isac Billingsley MD Primary Care Provider Williams Farrell DO Primary Care Provider Dr. Rip Rivers DO Attending Provider Dr. Rip Rivers DO Referring Provider Dr. Isac Billingsley MD Primary Care Provider [phone] Dr. Mayco Galeano MD Attending Provider Isac Billingsley MD Primary Care Provider ISAC BILLINGSLEY Attending Unavailable WILLIAMS FARRELL Primary Care Unavailable Rocael FRAZIER-CCaity Attending Provider Rocael FRAZIER-CCaity Referring Provider Williams Farrell Primary Care Unavailable Mayco Galeano Attending Unavailable Waleska, Mayco Attending Unavailable Jose Cruz, Isac Primary Care Unavailable Oberhauser, Williams Referring Unavailable Oberhauser, Williams Primary Care Unavailable Roof PRINCIPAL PLANNER, Tanvi Schreiber Attending Unavailable Jose Cruz, Isac Primary Care Unavailable Masci, Rip Referring Unavailable Masci, Rip Attending Unavailable Oberhauser, Williams Primary Care Unavailable Masci, Rip Referring Unavailable Masci, Rip Attending Unavailable Jose Cruz, Isac Primary Care Unavailable Cote PRINCIPAL PLANNER, Caity Referring Unavailable Cote PRINCIPAL PLANNER, Caity Attending Unavailable Waleska, Mayco Attending Unavailable Jose Cruz, Isac Primary Care Unavailable Hermes PRINCIPAL PLANNER, [place] Primary Care Provider MASCI, RIP A Referring Unavailable HERMES, IMNAHA Primary Care Unavailable MASCI, RIP A Referring Unavailable HERMES, IMNAHA Primary Care Unavailable Jose Cruz RG, Isac Primary Care Provider OBERHAUSER, WILLIAMS SANTOSH Primary Care Unavailab le MASCI, RIP A Referring Unavailable JOSE CRUZ, ISAC L Primary Care Unavailable MASCI, RIP A Referring Unavailable MASCI, RIP A Referring Unavailable [facility], [facility] Primary Care Unavailab le MASCI, RIP A Referring Unavailable HERMES, IMNAHA Primary Care Unavailable MASCI, RIP A Referring Unavailable HERMES, IMNAHA Primary Care Unavailable JOSE CRUZ, ISAC L Primary Care Unavailable MASCI, RIP A Referring Unavailable COTE, CAITY Attending Unavailable JOSE CRUZ, ISAC L Primary Care Unavailable MASCI, RIP A Referring Unavailable JOSE CRUZ, ISAC L Primary Care Unavailable MASCI, RIP A Referring Unavailable JOSE CRUZ, ISAC L Primary Care Unavailable MASCI, RIP A Referring Unavailable MASCI, RIP A Referring Unavailable JOSE CRUZ, ISAC L Primary Care Unavailable COTE, CAITY Referring Unavailable HERMES, IMNAHA Primary Care Unavailable COTE, CAITY Referring Unavailable HERMES, IMNAHA Primary Care Unavailable COTE, CAITY Attending Unavailable JOSE CRUZ, ISAC L Primary Care Unavailable COTE, CAITY Referring Unavailable JOSE CRUZ, ISAC L Primary Care Unavailable MASCI, RIP A Referring Unavailable JOSE CRUZ, ISAC L Primary Care Unavailable COTE, CAITY Attending Unavailable JOSE CRUZ, ISAC L Primary Care Unavailable MASCI, RIP A Referring Unavailable MASCI, IRP A Referring Unavailable OBERHAUSER, [facility] Primary Care Unavailab le MASCI, RIP Borja Attending Unavailable MASCI, RIP A Referring Unavailable JOSE CRUZ, ISAC L Primary Care Unavailable OBERHAUSER, WILLIAMS SANTOSH Primary Care Unavailab le MASCI, RIP Borja Referring Unavailable OBERHAUSER, WILLI[facility] [place] Primary Care Unavailab le MASCI, RIP Borja Referring Unavailable OBERHAUSER, WILLIAMS QUEEVDON Primary Care Unavailab le MASCI, RIP Borja Attending Unavailable MASCI, RIP Borja Referring Unavailable OBERHAUSER, WILLIAMS SANTOSH Primary Care Unavailab le MASCI, RIP Borja Referring Unavailable OBERHAUSER, WILLIAMS SANTOSH Primary Care Unavailab le MASCI, RIP Borja Referring Unavailable JOSE CRUZ, ISAC L Primary Care Unavailable MASCI, RIP Borja Referring Unavailable MASCI, RIP Borja Attending Unavailable JOSE CRUZ, ISAC L Primary [...] Unavailable MASCI, RIP Borja Ref[facility] Un[facility] Unavailab le MASCI, RIP Borja Referring Unavailable OBERHAUSER, WILLIAMS SANTOSH Primary Care Unavailab le MASCI, RIP Borja Attending Unavailable MASCI, RIP Borja Referring Un[facility] Primary Care Unavailab le MASCI, RIP Borja Referring Unavailable HERMES, IMNAHA Primary Care Unavailable HERMES, IMNAHA Primary Care Unavailable MASCI, RIP Borja Referring Unavailable CAITY COTE Attending Unavailable HERMES, IMNAHA Primary Care Unavailable MASCI, RIP Borja Referring Unavailable HERMES, IMNAHA Primary Care Unavailable MEENU GARAY Attending Unavailable HERMES, IMNAHA Primary Care Unavailable MEENU GARAY Attending Unavailable HERMES, IMNAHA Primary Care Unavailable MASCI, RIP Borja Referring Unavailable MASCI, RIP Borja Attending Unavailable HERMES, IMNAHA Primary Care Unavailable MASCI, RIP Borja Referring Unavailable HERMES, IMNAHA Primary Care Unavailable HERMES, IMNAHA Primary Care Unavailable MEENU GARAY Attending Unavailable HERMES, IMNAHA Primary Care Unavailable MEENU GARAY Attending Unavailable HERMES, IMNAHA Primary Care Unavailable MASCI, RIP Borja Referring Unavailable HERMES, IMNAHA Primary Care Unavailable MASCI, RIP Borja Referring Unavailable CAITY COTE Attending Unavailable HERMES, IMNAHA Primary Care Unavailable MASCI, RIP A Referring Unavailable HERMES, IMNAHA Primary Care Unavailable MASCI, RIP A Referring Unavailable JOSE CRUZ, ISAC L Primary Care Unavailable MASCI, RIP Jonh Referring Unavailable JOSE CRUZ, ISAC L Primary Care Unavailable JOSE CRUZ, ISAC L Primary Care Unavailable MASCI, RIP A Referring Unavailable JOSE CRUZ, ISAC L Primary Care Unavailable MASCI, RIP A Referring Unavailable MASCI, RIP Jonh Referring Unavailable [facility]BERHAUSER, [facility] Primary Care Unavailab le MEENU GARAY Attending Unavailable HERMES, IMNAHA Primary Care Unavailable JOSE CRUZ, ISAC L Primary Care Unavailable MASCI, RIP A Referring Unavailable MASCI, RIP A Referring Unavailable JOSE CRUZ, ISAC L Primary Care Unavailable MASCI, RPI Jonh Referring Unavailable JOSE CRUZ, ISAC L Primary Care Unavailable MASCI, RIP Jonh Referring Unavailable CAITY COTE Attending Unavailable JOSE CRUZ, ISAC L Primary Care Unavailable CAITY COTE Attending Unavailable MASCI, RIP A Referring Unavailable JOSE CRUZ, ISAC L Primary Care Unavailable JOSE CRUZ, ISAC L Primary Care Unavailable MASCI, RIP A Referring Unavailable MASCI, RIP Jonh Referring Unavailable MASCI, RIP Borja Attending Unavailable JOSE CRUZ, ISAC L Primary Care Unavailable JOSE CRUZ, ISAC L Primary Care Unavailable MASCI, RIP A Referring Un[facility] Primary Care Unavailab le MASCI, RIP Jonh Attending Unavailable MASCI, RIP A Referring Unavailable OBERHAUSER, WILLIAMS SANTOSH Primary Care Unavailab le MASCI, RIP A Referring Unavailable OBERHAUSER, WILLIAMS SANTOSH Primary Care Unavailab le MASCI, RIP A Referring Unavailable OBERHAUSER, WILLIAMS SANTOHS Primary Care Unavailab le MASCI, RIP A Referring Unavailable OBERHAUSER, WILLIAMS SANTOSH Primary Care Unavailab le MASCI, RIP A Referring Unavailable OBERHAUSER, WILLIAMS SANTOSH Primary Care Unavailab le CAITY COTE Attending Unavailable MASCI, RIP A Referring Unavailable JOSE CRUZ, ISAC L Primary Care Unavailable MASCI, RIP A Referring Unavailable JOSE CRUZ, ISAC L Primary Care Unavailable QUITA HOFF Attending Unavailable MASCI, RIP A Referring Unavailable JOSE CRUZ, ISAC L Primary Care Unavailable POORNIMA GARCIA Referring Unavailable JOSE CRUZ, ISAC L Primary Care Unavailable POORNIMA GARCIA Attending Unavailable ISAC BILLINGSLEY Primary Care Unavailable Allergies Allergy Classification Reported Allergen(s) Allergy Type Date of Onset Reaction(s) Facility Acetaminophen / HYDROcodone (3 sources) Acetaminophen / HYDROcodone Drug Allergy 03-04-20 [address] [facility] Acetaminophen / oxyCODONE (3 sources) Acetaminophen / oxyCODONE Drug Allergy 03-29-20 16 Rash, Itching [facility] Aspirin (3 sources) Aspirin Drug Allergy 02-20-20 16 Other: See Comments [facility] Cephalosporins (antibiotic) (3 sources) Cephalosporins (Antibiotic) Drug Allergy 02-20-20 [address] [facility] Corticosteroids (3 sources) predniSONE Drug Allergy 02-20-20 [address] [facility] Latex (3 sources) Latex Substance Allergy 03-18-20 [address] [facility] Macrolides (antibiotic) (3 sources) Erythromycin Drug Allergy 02-20-20 [address] [facility] Nalbuphine (3 sources) Nalbuphine Drug Allergy 02-20-20 [address] [facility] neratinib (3 sources) neratinib Drug Allergy 07-27-19 [address] [facility] Opioid Agonists (6 sources) Codeine Drug Allergy 02-20-20 [address] [facility] Penicillins (antibiotic) (3 sources) Amoxicillin Drug Allergy 02-20-20 [address] [facility] rye allergenic extract (3 sources) rye allergenic extract Drug Allergy 02-20-20 16 Other: See Comments [facility] Sulfonamides (antibiotic) (3 sources) Sulfonamides (Antibiotic) Drug Allergy 02-20-20 16 Other: See Comments [facility] (4 sources) acetaminophen / HYDROcodone drug allergy 12-02-19 17 Hives and nausea [facility] Work Phone: (4 sources) acetaminophen / oxyCODONE drug allergy 12-02-19 17 Hives and nausea [facility] Work Phone: (20 sources) amoxicillin; Translations: [AMOXICILLIN] drug allergy 02-20-20 16 Rash, Fever, Nausea/vomitin g [facility] Work Phone: (20 sources) aspirin; Translations: [ASPIRIN] drug allergy 02-20-20 16 Other: See Comments, Other, GI bleeding [facility] Work Phone: (4 sources) ciprofloxacin drug allergy 12-02-19 17 Hives and nausea [facility] Work Phone: [phone] (20 sources) codeine; Translations: [CODEINE] drug allergy 02-20-20 16 Unknown, Fever, Hives [facility] Work Phone: [phone] (4 sources) meperidine drug allergy 12-02-19 17 Hives, nausea [facility] Work Phone: [phone] (4 sources) nalbuphine drug allergy 12-02-19 17 Hives and nausea [facility] Work Phone: [phone] (7 sources) natural latex rubber; Translations: [LATEX] allergy to substance 03-18-20 16 Hives [facility] Work Phone: [phone] (20 sources) predniSONE; Translations: [PREDNISONE] drug allergy 02-20-20 16 Unknown [facility] Work Phone: [phone] (20 sources) rye allergenic extract; Translations: [RYE] drug allergy 02-20-20 16 Other: See Comments [facility] Work Phone: [phone] (4 sources) Sulfonamides (Antibiotic) drug allergy 12-02-19 17 Hives and nausea [facility] Work Phone: [phone] (20 sources) Acetaminophen / HYDROcodone; Translations: [HYDROCODONE-ACETA MINOPHEN] Drug Allergy 03-04-20 16 Hives, Nausea/vomitin g [facility] (20 sources) Acetaminophen / oxyCODONE; Translations: [OXYCODONE-ACETAMI NOPHEN] Drug Allergy 03-29-20 16 Rash, Itching, Nausea/vomitin g [facility] (20 sources) Cephalosporins (Antibiotic); Translations: [CEPHALOSPORINS] Drug Allergy 02-20-20 16 Unknown, Rash, Fever [facility] (20 sources) Erythromycin; Translations: [ERYTHROMYCIN] Drug Allergy 02-20-20 [address] [facility] (20 sources) Latex Drug Allergy 03-18-20 16 Rash, Hives [facility] (20 sources) Meperidine; Translations: [MEPERIDINE (PF)] Drug Allergy 02-20-20 [address] [facility] (20 sources) Nalbuphine; Translations: [NALBUPHINE HCL] Drug Allergy 02-20-20 [address] [facility] (20 sources) neratinib; Translations: [NERATINIB] Drug Allergy 07-27-19 [address] [facility] (20 sources) Sulfonamides (Antibiotic); Translations: [SULFA (SULFONAMIDE ANTIBIOTICS)] Drug Allergy 02-20-20 16 Other: See Comments, Unknown, Hives, Rash [facility] (20 sources) Ciprocinonide; Translations: [CIPROCINONIDE] Drug Allergy 02-20-20 16 [facility] (13 sources) Acetaminophen; Translations: [ACETAMINOPHEN] Drug Allergy 03-29-20 19 [facility] (13 sources) Ciprofloxacin; Translations: [CIPROFLOXACIN] Drug Allergy 12-02-19 17 Fever, Rash [facility] (13 sources) HYDROcodone; Translations: [HYDROCODONE] Drug Allergy 03-29-20 19 Hives, Nausea/vomitin g [facility] (13 sources) Meperidine; Translations: [MEPERIDINE] Drug Allergy 12-02-19 17 Hives, GI Upset [facility] (13 sources) Nalbuphine; Translations: [NALBUPHINE] Drug Allergy 12-02-19 17 Fever, Nausea/vomitin g [facility] (13 sources) oxyCODONE; Translations: [OXYCODONE] Drug Allergy 03-29-20 19 Hives, Nausea/vomitin g [facility] (20 sources) Cephalosporins (Antibiotic) Drug Allergy 02-20-20 16 [facility] (9 sources) Cephalosporins (Antibiotic) Allergy to substance 04-06-20 22 Fever and skin rash [facility] (9 sources) Sulfonamides (Antibiotic) Allergy to substance 04-06-20 22 Fever and skin rash [facility] (8 sources) Food Allergies: Uncoded; Translations: [Food Allergies: Uncoded] Propensity to adverse reactions 12-01-19 23 migraine [facility] Comment on above: [place] (20 sources) Nirmatrelvir-Riton avir; Translations: [NIRMATRELVIR-FROY NAVIR] Drug Allergy 07-20-19 24 Intolerance, Other [facility] (5 sources) Ritonavir; Translations: [RITONAVIR] Drug Allergy 08-16-19 Other [facility] (6 sources) nirmatrelvir; Translations: [NIRMATRELVIR] Allergy to substance 08-16-19 Other [facility] (1 source) Acetaminophen Drug Allergy 05-21-20 [facility] (1 source) Cephalosporins (Antibiotic) Drug allergy (disorder) 05-21-20 [facility] (1 source) Ciprofloxacin Drug Allergy 05-21-20 [facility] (1 source) Erythromycin Drug Allergy 05-21-20 [facility] (1 source) HYDROcodone Drug Allergy 05-21-20 [facility] (1 source) Latex Drug allergy (disorder) 05-21-20 [facility] (1 source) Meperidine Drug Allergy 05-21-20 [facility] (1 source) Nalbuphine Drug Allergy 05-21-20 [facility] (1 source) oxyCODONE Drug Allergy 05-21-20 [facility] (1 source) Ritonavir Drug Allergy 05-21-20 [facility] (1 source) Sulfonamides (Antibiotic) Drug allergy (disorder) 05-21-20 [facility] Medications Current Medications Medication Drug [...] TYLENOL 325 MG TABS as needed ACETAMINOPHEN [id number] Mayco Galeano MD End: 04-06-2023 take 2 [...] sources) Nucleoside Metabolic Inhibitor Start: 07-18-2024 End: 12-25-2024 capecitabine (XELODA) 500 mg tablet Take 2 tablets (1,000 mg) in the morning and 2 tablets (1,000 mg) in the evening by mouth with food for 14 days then 7 days off. 56 tablet 2 01/21/2025 11:15 AM EDT 12/25/2024 Active Start: 06-03-2024 End: 07-16-2024 capecitabine (XELODA) [...] 1 each 12/12/2024 12/13/2024 Active Start: 08-15-2024 End: 01-02-2025 enteric contrast (will be pr ovided with [...] per enteric contrast guidelines 1 Each 08/15/2024 01/02/2025 Discontinued Start: 08-15-[address] (will be [...] 1 each 12/12/2024 12/13/2024 Active Start: 08-15-2024 End: 01-02-2025 iv contrast (will be provide d with [...] contrast administration guidelines link. 1 Each 08/15/2024 01/02/2025 Discontinued Start: 08-15-2024 End: 01-02-2025 iv contrast (will be provide d with [...] contrast administration guidelines link. 1 Each 08/15/2024 01/02/2025 Discontinued Start: 08-15-2024 iv contrast (w ill be [...] 0 12/14/2023 12/15/2023 Start: 12-14-2023 End: 12-15-2023 iv contrast (will [...] (20 sources) Angiotensin 2 Receptor Ruth Start: 02-06-2025 take 1 tablet by mouth once daily losartan (COZAAR) 100 mg tablet Take 1 tablet by mouth once daily. 90 tablet 1 02/06/2025 Active Start: 02-26-2020 End: 02-05-2025 take 2 tablets by mouth once daily losartan (COZAAR) 50 mg tablet Take 2 tablets by mouth once daily. 02/26/2020 02/05/2025 Discontinued Start: 01-22-2020 End: 02-03-2024 take 1 tablet by mouth once daily Losartan 100 mg tablet Discontinued 100 mg PO daily 90 January 20, 2023 11:58am February 03, 2024 1:20pm HTN Start: 05-31-2017 End: 01-22-2020 take 1 tablet by mouth once daily Losartan 50 mg tablet Discontinued 50 mg PO daily 90 June 29, 2019 2:00pm January 22, 2020 3:01pm HTN Start: 12-01-2016 take 1 tablet by chito once daily LOSARTAN POTASSIUM 50 MG TABS One tablet by mouth daily LOSARTAN POTASSIUM [id number] Mayco Galeano MD Comment on above: Take 2 tablets by mo [facility] once daily. metoprolol tartrate 25 mg oral tablet (20 sources) beta-Adrenergic Ruth Start: 01-22-2020 End: 02-07-2025 take 1 tablet by mouth twice daily metoprolol tartrate, short acting, (LOPRESSOR) 25 mg tablet Take 1 tablet by mouth two times a day. 180 tablet 3 02/07/2025 Active Start: 01-22-2020 End: 01-22-2020 take 1 [...] by chito th once daily. Multivitamin tablet (2 sources) Start: 11-27-19 Multivitamin tablet Active 1 {tbl} PO DAILY November 26, 2022 11:18am naproxen sodium 220 mg oral capsule (11 sources) Nonsteroidal Anti-inflammatory Drug Start: 03-29-20 take [...] powder for oral solution (20 sources) Start: 01-23-2025 take 20 mEq by mouth once daily potassium chloride (KLOR-CON) 20 mEq packet Take 20 mEq by mouth once daily. 30 packet 5 01/23/2025 Active Start: 04-25-2023 End: 12-14-2023 take 20 mEq by mouth once daily potassium chloride (Kl or-Con) 20 mEq packet Take 20 mEq by [...] on above: Take 1 tablet by chito once daily. Take 20 mEq by mouth [...] Comment on above: Take 1 capsule by [facility] twice daily for 90 days. TAKE 1 CAPSULE BY [facility] TWICE DAILY. promethazine hydrochloride 25 mg oral tablet (20 sources) Phenothiazine Start: 01-29-20 take 1 tablet by mouth every six hours as needed promethazine (PHENERGAN) 25 mg tablet Take 1 tablet by mouth every 6 hours as needed. FOR NAUSEA 30 tablet 2 01/28/2025 Active Start: 03-03-2021 End: 01-25-2025 take 1 tablet by mouth every six hours as needed promethazine (PHENERGAN) 25 mg tablet Take 1 tablet by mouth every 6 hours as needed. FOR NAUSEA 30 tablet 2 04/26/2023 01/25/2025 Discontinued Comment on above: Take 1 tablet by chito every 6 hours as needed. FOR NAUSEA tucatinib 50 mg oral tablet (20 sources) Start: 11-22-2023 take 1 tablet by mouth every twelve [...] TABS One tablet by mouth daily ANASTROZOLE [id number] Mayco Galeano MD docusate (3 sources) Start: 12-01-2016 take 1 tablet by mouth once daily EQL HEARTBURN PREVENTION 10 MG TABS One tablet by mouth daily FAMOTIDINE [id number] Mayco Galeano MD doxycycline monohydrate 100 mg oral tablet (14 sources) Tetracycline-clas s Drug Start: 09-26-2024 End: [...] Discontinued 100 mg PO TWICE A DAY 20 10 0 April 03, 2019 12:00am April 12, 2019 1:00am [...] 8 weeks. famotidine 10 mg oral tablet (12 sources) Histamine-2 Receptor Antagonist Start: 05-31-2017 End: 11-29-2017 take 1 tablet by mouth once daily Famotidine 10 mg tablet Discontinued 10 mg PO daily May 31, 2017 1:00am November 29, 2017 2:36pm Start: 12-01-2016 take 1 tablet by chito th once daily EQL HEARTBURN PREVENTION 10 MG TABS One tablet by mouth daily FAMOTIDINE [id number] Mayco Galeano MD gabapentin 100 mg oral capsule (15 sources) Anti-epileptic Agent Start: 05-31-2017 End: 09-15-2021 take 3 capsules by mouth at bedtime Gabapentin 100 mg capsule Discontinued 300 mg PO AT BEDTIME May 31, 2017 1:00am September 15, 2021 9:46am neuropathy Start: 05-31-2017 End: 09-15-2021 take 300 mg by mouth at bedtime Gabapentin Discontinue d 300 MG PO AT BEDTIME May 31, 2017 1:00am September 15, 2021 9:46am Start: 12-01-2016 take 1 tablet by chito th once daily GABAPENTIN 100 MG CAPS One tablet by mouth daily GABAPENTIN [id number] Mayco Galeano MD homatropine methylbromide 0.3 mg/ml / HYDROcodone bitartrate 1 mg/ml oral solution (11 sources) Opioid Agonist, Cholinergic Muscarinic Agonist Start: 04-19-2016 End: 11-29-2017 Hydrocodone-Homatropine 5 ML syrup Discontinued 5 mL PO EVERY 6 HOURS NEEDED as needed for Cough 60 0 April 19, 2016 1:00am November 29, 2017 2:37pm Start: 04-19-2016 End: 11-29-2017 take 1 mL by mouth every six hours as needed Hydrocodone-Homatropine Discontinued 5 M L PO EVERY 6 HOURS NEEDED 60 April 19, 2016 1:00am November 29, 2017 2:37pm 5 ml hyaluronidase-oysk 2000 unt/ml / trastuzumab-oysk 120 mg/ml injection (11 sources) Endoglycosidase, HER2/krista Receptor Antagonist Start: 06-19-2019 End: 01-22-2020 Nzfjufvbbme-Zqrqlezxkhlan-Ma sk (Herceptin Hylecta) 600 mg-10,000 unit/5 mL solution Discontinued 5 mL SC every 3 weeks June 19, 2019 1:00am January 22, 2020 2:45pm hydrocortisone acetate 10 mg/ml / pramoxine hydrochloride 10 mg/ml rectal foam (3 sources) Corticosteroid Start: 08-17-2023 End: 05-21-2024 Hydrocortisone-Pramoxine (Proctofoam Hc) 1-1 % foam Discontinued 1 NMA RC AT BEDTIME 10 7 0 August 17, 2023 12:00am May 21, 2024 11:10am Start: 08-17-2023 Hydrocortisone -Pramoxine (Proctofoam Hc) 1-1 % foam Active 1 APPLIC RC AT BEDTIME 10 7 August 17, 2023 12:00am ibuprofen 600 mg oral tablet (20 sources) Nonsteroidal Anti-inflammatory Drug Start: 07-14-2021 End: 04-06-2023 take 1 tablet by mouth every six hours as needed ibuprofen (MOTRIN) 600 mg tablet Take 1 tablet by mouth every 6 hours as needed for pain. FOR PAIN. 20 tablet 0 07/14/2021 04/06/2023 Discontinued Comment on above: Take 1 tablet by [facility] every 6 hours as needed for pain. [...] mouth once daily. Multivitamin 1 EACH tablet (2 sources) Start: 03-29-2019 End: 11-26-2022 Multivitamin 1 EACH [...] Multivitamin With Folic Acid 1 TABLET tablet (2 sources) Start: 04-19-2016 End: 11-29-2017 take 1 tablet by mouth once daily Multivitamin With Folic Acid 1 TABLET tablet Discontinued 1 {tbl} PO DAILY April 19, 2016 1:00am November 29, 2017 2:36pm Ivowutyevtnx-Qh-Avjv-Min erals (9 sources) Start: 06-02-2017 End: 05-09-2018 Lprxpwlwooze-Rv-Aobi-Mi nerals Discontinued TABLET PO June 02, 2017 3:01pm May 09, 2018 4:32pm Start: 06-02-2017 End: 05-09-2018 Ylmxiiazgbbd-Ef-Bviz-Mineral s Discontinued TABLET PO June 02, 2017 12:00am May 09, 2018 3:32pm Start: 06-02-2017 End: 05-09-2018 Sbqkylgojnrl-Tn-Pqcp-Mineral s Discontinued TABLET PO June 02, 2017 1:00am May 09, 2018 4:32pm Pwxezgwnggbo-Qg-Qqpu-Mineral s tablet (2 sources) Start: 06-02-2017 End: 05-09-2018 Xomohxrlrcgb-Ej-Yifu-Mineral s tablet Discontinued {tbl} PO 0 June 02, 2017 1:00am May 09, 2018 4:32pm Start: 06-02-2017 End: 05-09-2018 Xhzcboqcsagj-Lp-Pykb-Mineral s tablet Discontinued {tbl} PO June 02, 2017 1:00am May 09, 2018 4:32pm Drug Treatment Unknown - unk nown (3 sources) No information a vailable. 1000 ml sodium chloride 9 mg /ml injection (20 sources) Start: 12-22-2023 End: 12-22-2023 NaCl 0.9% iv infusion Start: 07-01-2020 End: 03-22-2024 sodium chloride 0.9 % (flush ) 10 mL (BD POSIFLUSH) traMADol hydrochloride 50 mg oral tablet (11 sources) Opioid Agonist Start: 04-03-2019 End: 04-15-2019 take 1 tablet by mouth every six hours as needed for pain Tramadol 50 MG tablet Discontinued 50 mg PO EVERY 6 HOURS NEEDED as needed for Pain Or Fever 10 April 03, 2019 7:14am April 07, 2019 12:00am April 15, 2019 1:09am trastuzumab-dttb 468 mg in NaCl 0.9% 297.2857 mL (ONTRUZANT) (10 sources) Start: 02-14-2025 End: 02-14-2025 468 mg (6 mg/kg/dose 78 kg Treatment plan Recorded weight), INTRAVENOUS, Administer over 30 Minutes, ONCE, 1 dose, On Amarilys 02/14/25 at 0800, Approx Total Volume - IMMEDIATE USE at room temp - DO NOT SHAKE Refrigerate Start: 01-24-2025 End: 01-24-2025 468 mg (6 mg/kg/dose 78 kg T reatment plan Recorded weight), INTRAVENOUS, Administer over 30 Minutes, ONCE, 1 dose, On Amarilys 01/24/25 at 0800, Approx Total Volume - IMMEDIATE USE at room temp - DO NOT SHAKE Refrigerate Start: 01-03-2025 End: 01-03-2025 468 mg (6 mg/kg/dose 78 kg T reatment plan Recorded weight), INTRAVENOUS, Administer over 30 Minutes, ONCE, 1 dose, On Amarilys 01/03/25 at 0900, Approx Total Volume - exp 0930 01/13/25 (refrigerated) DO NOT SHAKE Refrigerate Start: 12-13-2024 End: 12-13-2024 468 mg (6 mg/kg/dose 78 kg T reatment plan Recorded weight), INTRAVENOUS, Administer over 30 Minutes, ONCE, 1 dose, On Amarilys 12/13/24 at 0830, Approx Total Volume - IMMEDIATE USE at room [facility] - DO NOT SHAKE Refrigerate Start: 11-22-2024 End: 11-22-2024 468 mg (6 mg/kg/dose 78 kg T reatment plan Recorded weight), INTRAVENOUS, Administer over 30 Minutes, ONCE, 1 dose, On Amarilys 11/22/24 at 0930, Approx Total Volume - IMMEDIATE USE at room [facility] - DO NOT SHAKE Refrigerate Start: 11-01-2024 End: 11-01-2024 468 mg (6 mg/kg/dose 78 kg T reatment plan Recorded weight), INTRAVENOUS, Administer over 30 Minutes, ONCE, 1 dose, On Amarilys 11/01/24 at 0800, Approx Total Volume - IMMEDIATE USE at room [facility] - DO NOT SHAKE Refrigerate Start: 10-11-2024 End: 10-11-2024 468 mg (6 mg/kg/dose 78 kg T reatment plan Recorded weight), INTRAVENOUS, Administer over 30 Minutes, ONCE, 1 dose, On Amarilys 10/11/24 at 0800, Approx Total Volume - IMMEDIATE USE at room [facility] - DO NOT SHAKE Refrigerate Start: 09-06-2024 End: 09-06-2024 468 mg (6 mg/kg/dose 78 kg T reatment plan Recorded weight), INTRAVENOUS, Administer over 30 Minutes, ONCE, 1 dose, On Amarilys 09/06/24 at 1430, Approx Total Volume - IMMEDIATE USE at room [facility] - DO NOT SHAKE Refrigerate Start: 08-16-2024 [...] 30 Minutes, ONCE, 1 dose, On Amarilys 04/12/24 at 0900, Approx Total Volume -exp 0900 04/22/24 (refrigerated) - DO NOT SHAKE Refrigerate Start: 03-22-2024 End: 03-22-2024 506.4 mg (6 mg/kg/dose 84.4 kg Treatment plan Recorded weight), INTRAVENOUS, Administer over 30 Minutes, ONCE, 1 dose, On Amarilys 03/22/24 at 1030, Approx Total Volume exp 1100 [...] Discontinued (Med List Cleanup) Turmeric Root Extract (11 sources) Start: 11-29-2017 End: 05-09-2018 take 500 [...] source) Bisphosphonate Start: 01-16-2024 End: 01-16-2024 zoledronic rm-attmbdst-4.9NaCl 4 mg iv piggyback 100 mL (ZOMETA) zoledronic acid 3.3 mg in NaCl 0.9% 100 mL (ZOMETA) (4 sources) Start: 01-03-2025 End: 01-03-2025 3.3 mg, INTRAVENOUS, Administer over 15 Minutes, ONCE, 1 dose, On Amarilys 01/03/25 at 0900, Hazardous Potential Reproductive Risk Drug: Use appropriate PPE. Refrigerate. Exp: (24 HR) Start: 10-11-2024 End: 10-11-2024 3.3 mg, INTRAVENOUS, Adminis ter over 15 Minutes, ONCE, 1 dose, On Maarilys 10/11/24 at 0800, Approx Total Volume - [...] Problem Date Documented Date Episodic/Chronic Abdominal pain (5 sources) Right lower quadrant pain; Translations: [Right lower quadrant pain] 08-17-2023 Episodic Allergic reactions (6 sources) Eruption due to drug; Translations: [Generalized skin eruption due to drugs and medicaments taken internally] Onset: 01-03-20 25 05-02-2024 Episodic Cancer of breast (20 sources) Primary malignant neoplasm of female breast; Translations: [Malignant neoplasm of lower-inner quadrant of female breast] Onset: 02-21-20 16 11-30-2016 Chronic Comment on above: Current therapy: 1) Enhertu. Began 09/10/21Previous therapy:1)Taxotere/Herceptin/Perjeta.2) Herceptin/Perjeta.Discontinued 01/2021 for progressive disease. 3) Kadcyla 02/2021 through 07/2021.Discontinued secondary to significantworsening of neuropathy. 4. Currently on Herceptin and Xeloda combination Tuky. Cancer of breast (1 source) History of malignant neoplasm of breast; Translations: [Personal history of malignant neoplasm of breast] 2024 Episodic Cancer of prostate (1 source) Malignant tumor of prostate; Translations: [Malignant neoplasm of prostate] 11-23-2023 Chronic Chronic obstructive pulmonary disease and bronchiectasis (1 source) Bronchitis; Translations: [Bronchitis, not specified as acute or chronic] 2024 Episodic E Codes: Adverse effects of medical drugs (2 sources) Adverse effect of antineoplastic and immunosuppressive drugs, initial encounter; 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)] Onset: 07-04-19 Episodic Essential hypertension (3 sources) Essential hypertension; Translations: [Essential (primary) hypertension] Onset: 06-16-19 24 06-16-2023 Chronic Gastrointestinal hemorrhage (3 sources) Rectal hemorrhage; Translations: [Hemorrhage of anus and rectum] 08-17-2023 Episodic Maintenance chemotherapy; radiotherapy (11 sources) Patient encounter status; Translations: [Encounter [...] Heart disease; Translations: [Heart disease, unspecified] Onset: 06-16-19 24 06-16-2023 Chronic Other bone disease and musculoskeletal deformities [...] lung field] Episodic Other lower respiratory disease (6 sources) Dyspnea; Translations: [Dyspnea, unspecified] 02-16-2023 Episodic [...] Drug-induced polyneuropathy; 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)] Onset: 03-06-20 Chronic Other nutritional; endocrine; and metabolic disorders (11 sources) Obesity; Translations: [Obesity, unspecified] 09-14-2021 Chronic Other nutritional; endocrine; and metabolic disorders (1 source) Abnormal weight loss; Translations: [Abnormal weight loss] 05-23-2024 Episodic Other nutritional; endocrine; and metabolic disorders (6 sources) H/O: thyroid disorder; Translations: [Personal history of other endocrine, nutritional and metabolic disease] 05-23-2024 Episodic Other screening for suspected conditions (not mental disorders or infectious disease) (12 sources) Patient encounter status; Translations: [Encounter for screening mammogram for malignant neoplasm of breast] Episodic Kesha-; endo-; and myocarditis; cardiomyopathy (except that caused by tuberculosis or sexually transmitted disease) (20 sources) Cardiomyopathy associated with another disorder; 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] Onset: 12-01-19 17 11-30-2016 Chronic Secondary malignancies (20 sources) Secondary malignant [...] right lung] Onset: 06-16-19 Chronic Secondary malignancies (8 sources) Secondary malignant neoplasm of left lung; Translations: [Secondary malignant neoplasm of left lung] 02-04-2023 Chronic Secondary malignancies (9 sources) Secondary malignant neoplasm of right lung; Translations: [Secondary malignant neoplasm of right lung] 08-26-2023 Chronic Secondary malignancies (1 source) Carcinomatous metastasis in skin 01-29-2025 Chronic Secondary malignancies (2 sources) Secondary malignant neoplasm of bone; Translations: [Malignant neoplasm metastatic to bone (HCC)] Onset: 09-08-19 Chronic Secondary malignancies (2 sources) Secondary malignant neoplasm of skin; Translations: [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)] Onset: 09-09-19 Chronic Secondary malignancies (2 sources) Secondary malignant neoplasm of unspecified lung; Translations: [Malignant neoplasm metastatic to lung, unspecified laterality (HCC)] Onset: 04-23-20 Chronic Secondary malignancies (1 source) Secondary malignant neoplasm of right lung; Translations: [Malignant neoplasm metastatic to both lungs (HCC)] Onset: 04-23-20 Chronic Secondary malignancies (1 source) Secondary malignant neoplasm of left lung; Translations: [Malignant neoplasm metastatic to both lungs (HCC)] Onset: 04-23-20 Chronic Spondylosis; intervertebral disc disorders; other back problems (2 sources) Chronic sacroiliac joint pain; Translations: [Sacrococcygeal disorders, not elsewhere classified] Episodic Thyroid disorders (8 sources) Thyroid nodule; Translations: [Nontoxic single thyroid nodule] Onset: 02-15-20 Chronic Unclassified (4 sources) Chemotherapy ; Translations: [Encounter for antineoplastic chemotherapy] Onset: 12-01-1911-30-2016 Unclassified (1 source) Patient encounter status 2024 Unclassified (1 source) Patient Education Onset: 02-13-20 Unclassified (1 source) Acute cough; Translations: [Acute [...] and colitis] Onset: 07-26-2017 07-26-2017 Episodic Other nutritional; endocrine; and metabolic disorders (1 source) Personal history of other endocrine, nutritional and metabolic disease; Translations: [History of thyroid nodule] Onset: 08-30-2024 Episodic Other upper respiratory infections (1 source) Acute upper respiratory infection, unspecified; Translations: [URI, acute] Onset: 09-26-2024 Episodic Pneumonia (except that caused by tuberculosis or sexually transmitted disease) (1 source) Pneumonia, unspecified organism; Translations: [Community acquired pneumonia of right lung, unspecified part of lung] Onset: 09-26-2024 Episodic Residual codes; unclassified (1 source) Estrogen receptor positive status [ER+]; Translations: [Malignant neoplasm of lower-inner quadrant of right breast of female, estrogen receptor positive (HCC)] Onset: 03-02-2017 Episodic Unclassified (2 sources) Onset: 06-16-2023 Resolved: 2024 06-16-2023 Unclassified (1 source) Long-term current use of drug therapy 08-15-2024 Results Test Name Value Interpretation Reference Range Facility Comprehensive metabolic 2000 panelOrdered By: Evette Landry on 02-13-2025 Albumin [Mass/Vol] 4.0 g/dL 3.9 - 4.9 g/dL [facility] ALP [Catalytic activity/Vol] 105 U/L 34 - 123 U/L [facility] ALT [Catalytic activity/Vol] 13 U/L 7 - 38 U/L [facility] Anion gap [Moles/Vol] 9 mmol/L 8 - 15 mmol/L [facility] AST [Catalytic activity/Vol] 26 U/L 13 - 35 U/L [facility] Bilirubin [Mass/Vol] 0.4 mg/dL 0.2 - 1 .3 mg/dL [facility] Calcium [Mass/Vol] 9.6 mg/dL 8.5 - 10. 2 mg/dL [facility] Chloride [Moles/Vol] 105 mmol/L 98 - 10 7 mmol/L [facility] CO2 [Moles/Vol] 28 mmol/L 22 - 30 mmol/L [facility] Creatinine [Mass/Vol] 1.28 mg/dL High 0.58 - 0.96 mg/dL [facility] GFR/1.73 sq M.predicted among non-blacks MDRD (S/P/Bld) [Vol rate/Area] 45 mL/min/{1.73_m2} Low - PINF [facility] Comment on above: Estimated Glomerular Filtration [...] not accurately reflect actual GFR. Glucose [Mass/Vol] 113 mg/dL High 74 - 99 mg/dL [facility] Comment on above: The [place] [employer] Association (ADA) provides guidance for [...] Standards of Medical Care in Diabetes 2016, [place] [employer]. Diabetes Care. 2016.39(Suppl 1). Interpretation and review of laboratory results Abnormal [facility] Potassium [Moles/Vol] 4.2 mmol/L 3.7 - 5.1 mmol/L [facility] Protein [Mass/Vol] 5.9 g/dL Low 6.3 - 8.0 g/dL [facility] Sodium [Moles/Vol] 142 mmol/L 136 - 144 mmol/L [facility] Urea nitrogen [Mass/Vol] 18 mg/dL 7 - 21 mg/dL [facility] GLUCOSE, BLOOD (POC)on 01-29 Glucose [Mass/Vol] 85 mg/dL 74 - 99 mg/dL [facility] Comment on above: Location:[address], [place], [address] The Accu-Chek Inform II glucose meter has not been approved for testing on patients receiving intensive medical intervention or therapy and results from this point of care glucose test should not be used for patient management decisions in these cases. Inaccurate results may also occur from other interfering factors, such as N-acetylcysteine (blood concentrations of greater than 5mg/dL), galactose, extremes of hematocrit (<10 or >65), or high doses of ascorbic acid (vitamin C) greater than 3mg/dL. Consider alternate testing mechanisms (e.g. core lab, blood gas instrument) in the above situations. 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 EXAM CATEGORY: Subsequent treatment strategy. TECHNIQUE: Radiopharmaceutical was administered intravenously followed by PET imaging from the eyes to thighs. Free breathing, low dose CT of the same body region was acquired without IV contrast for attenuation correction and anatomic localization. Unenhanced imaging is limited for the evaluation of some pathology and the acquired CT was not designed to produce diagnostic CT scan quality. Physiologic/non-pathol ogic uptake in some body regions could confound or obscure some pathology. * CT Dose-Length Product (DLP): 278 mGy*cm * CT Dose Reduction Employed: Yes * Blood glucose: 85 mg/dL * Injection site: Left Forearm-Antecubital * Injected activity: 12 mCi * Uptake Time: 64 minutes * Radiopharmaceutical: [id number] (FDG) COMPARISON: FDG PET/CT 08/22/2023 CORRELATION: CT chest and abdomen/pelvis 12/27/2024, thyroid ultrasound 08/30/2024 RESULT: REFERENCES: FDG uptake is used as a surrogate marker for glucose metabolism. All reported standardized uptake values represent maximum SUV (SUVmax) per body weight, unless otherwise specified. SUV reference values, as follows: * Blood Pool (Descending Aorta): SUVmax 2.3 * Background Liver: SUVmax 3.3; SUVmean 2.5 Localizer Images: No additional findings. HEAD AND NECK: Head: No radiotracer avid lesion or mass effect in the imaged intracranial compartment. Aerodigestive Tract: Asymmetric uptake at the right tonsillar region measures SUV max 4.6 and correlates with an area of nodular thickening on CT (3:22). Lymph Nodes: No radiotracer avid lymphadenopathy. Neck Soft Tissues: Tracer avid left thyroid nodule has increased in intensity, measuring SUV max 7.5, previously 5.3. CHEST: Lungs and Pleura: A tracer avid right middle lobe nodule has resolved, with an area of presumed posttreatment related atelectasis in this region. A basilar right lower lobe nodule has increased in metabolic activity and size, measuring SUV max 5.5, 1.4 x 1.0 cm (3:96), previously SUV max 1.6, 0.6 cm. Redemonstrated left upper lobe atelectasis/scarring. No pleural effusion. Lymph Nodes: No radiotracer avid lymphadenopathy. Mediastinum: No radiotracer avid mass. Cardiovascular: Blood pool activity. No pericardial effusion. Normal heart size. A left chest wall port tip terminates near the superior cavoatrial junction Chest Wall: Postsurgical changes of right mastectomy. No radiotracer avid soft tissue lesion. ABDOMEN AND PELVIS: Hepatobiliary: No radiotracer avid lesion. No measurable mass. Spleen: No radiotracer avid lesion. No splenomegaly. Pancreas: No radiotracer avid lesion. Adrenals: No radiotracer avid nodule. Urinary Tract: Physiologic radiotracer excretion in the renal collecting systems and urinary bladder. No hydronephrosis. GI Tract: No radiotracer avid lesion. No bowel dilation. Peritoneum: No radiotracer avid lesion. No ascites. Lymph Nodes: No radiotracer avid lymphadenopathy. Vasculature: Blood pool activity. Pelvic Organs: No radiotracer avid lesion. Calcified uterine fibroids. MUSCULOSKELETAL: Bones: No radiotracer avid lesion. Degenerative changes. Scoliotic curvature of the spine.. Soft Tissues: No radiotracer avid lesion. IMPRESSION Since FDG PET/CT 08/22/2023, PRIMARY DISEASE SITE: * Redemonstrated postsurgical changes of right mastectomy. No metabolically active chest wall recurrence. MARYSE DISEASE: * No metabolically active regional lymphadenopathy. METASTATIC DISEASE: * A basilar right lower lobe nodule has increased in metabolic activity and size, presumed progressive pulmonary metastasis. * Previously noted metabolically active right middle lobe nodule has resolved, with an area of presumed posttreatment related atelectasis in this region. ADDITIONAL FINDINGS: * Asymmetric uptake at the right tonsillar region (SUV max 4.6), correlating with an area of nodular thickening on CT . Correlation with laryngoscopy recommended to exclude underlying suspicious lesion. * Metabolically active left thyroid nodule has increased slightly in intensity. Per thyroid ultrasound on 08/30/2024, annual follow-up imaging was advised. Field Crop Technical Officer: JAH Transcribe Date/Time: Jan 29 2025 4:21P Dictated by : DARSHAN VILLANUEVA MD This examination was interpreted and the report reviewed and electronically signed by: DARSHAN VILLANUEVA MD on Jan 29 2025 4:47PM EST [id number] [facility] PET+CT Guidance for localiza tion of tumor of Skull base to mid-thigh-- [id number] [place] 01-29-2025 * * *Final Report* * * DATE OF EXAM: Jan 29 2025 1:51PM MDP 0063 - NM PET/CT SKULL-THIGH SUBQ / PROCEDURE REASON: multiple diagnoses * * * * Physician Interpretation * * * * EXAMINATION: BODY FDG PET-CT CLINICAL HISTORY: Malignant neoplasm metastatic to bone (HCC) 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 EXAM CATEGORY: Subsequent treatment strategy. TECHNIQUE: Radiopharmaceutical was administered intravenously followed by PET imaging from the eyes to thighs. Free breathing, low dose CT of the same body region was acquired without IV contrast for attenuation correction and anatomic localization. Unenhanced imaging is limited for the evaluation of some pathology and the acquired CT was not designed to produce diagnostic CT scan quality. Physiologic/non-pathol ogic uptake in some body regions could confound or obscure some pathology. * CT Dose-Length Product (DLP): 278 mGy*cm * CT Dose Reduction Employed: Yes * Blood glucose: 85 mg/dL * Injection site: Left Forearm-Antecubital * Injected activity: 12 mCi * Uptake Time: 64 minutes * Radiopharmaceutical: [id number] (FDG) COMPARISON: FDG PET/CT 08/22/2023 CORRELATION: CT chest & abdomen/pelvis 12/27/2024, thyroid ultrasound 08/30/2024 RESULT: REFERENCES: FDG uptake is used as a surrogate marker for glucose metabolism. All reported standardized uptake values represent maximum SUV (SUVmax) per body weight, unless otherwise specified. SUV reference values, as follows: * Blood Pool (Descending Aorta): SUVmax 2.3 * Background Liver: SUVmax 3.3; SUVmean 2.5 Localizer Images: No additional findings. HEAD AND NECK: Head: No radiotracer avid lesion or mass effect in the imaged intracranial compartment. Aerodigestive Tract: Asymmetric uptake at the right tonsillar region measures SUV max 4.6 and correlates with an area of nodular thickening on CT (3:22). Lymph Nodes: No radiotracer avid lymphadenopathy. Neck Soft Tissues: Tracer avid left thyroid nodule has increased in intensity, measuring SUV max 7.5, previously 5.3. CHEST: Lungs & Pleura: A tracer avid right middle lobe nodule has resolved, with an area of presumed posttreatment related atelectasis in this region. A basilar right lower lobe nodule has increased in metabolic activity and size, measuring SUV max 5.5, 1.4 x 1.0 cm (3:96), previously SUV max 1.6, 0.6 cm. Redemonstrated left upper lobe atelectasis/scarring. No pleural effusion. Lymph Nodes: No radiotracer avid lymphadenopathy. Mediastinum: No radiotracer avid mass. Cardiovascular: Blood pool activity. No pericardial effusion. Normal heart size. A left chest wall port tip terminates near the superior cavoatrial junction Chest Wall: Postsurgical changes of right mastectomy. No radiotracer avid soft tissue lesion. ABDOMEN AND PELVIS: Hepatobiliary: No radiotracer avid lesion. No measurable mass. Spleen: No radiotracer avid lesion. No splenomegaly. Pancreas: No radiotracer avid lesion. Adrenals: No radiotracer avid nodule. Urinary Tract: Physiologic radiotracer excretion in the renal collecting systems and urinary bladder. No hydronephrosis. GI Tract: No radiotracer avid lesion. No bowel dilation. Peritoneum: No radiotracer avid lesion. No ascites. Lymph Nodes: No radiotracer avid lymphadenopathy. Vasculature: Blood pool activity. Pelvic Organs: No radiotracer avid lesion. Calcified uterine fibroids. MUSCULOSKELETAL: Bones: No radiotracer avid lesion. Degenerative changes. Scoliotic curvature of the spine.. Soft Tissues: No radiotracer avid lesion. IMPRESSION Since FDG PET/CT 08/22/2023, PRIMARY DISEASE SITE: * Redemonstrated postsurgical changes of right mastectomy. No metabolically active chest wall recurrence. MARYSE DISEASE: * No metabolically active regional lymphadenopathy. METASTATIC DISEASE: * A basilar right lower lobe nodule has increased in metabolic activity and size, presumed progressive pulmonary metastasis. * Previously noted metabolically active right middle lobe nodule has resolved, with an area of presumed posttreatment related atelectasis in this region. ADDITIONAL FINDINGS: * Asymmetric uptake at the right tonsillar region (SUV max 4.6), correlating with an area of nodular thickening on CT . Correlation with laryngoscopy recommended to exclude underlying suspicious lesion. * Metabolically active left thyroid nodule has increased slightly in intensity. Per thyroid ultrasound on 08/30/2024, annual follow-up imaging was advised. Field Crop Technical Officer: JAH Transcribe Date/Time: Jan 29 2025 4:21P Dictated by : DARSHAN VILLANUEVA MD This examination was interpreted and the report reviewed (more content not included)... 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 EXAM CATEGORY: Subsequent treatment strategy. TECHNIQUE: Radiopharmaceutical was administered intravenously followed by PET imaging from the eyes to thighs. Free breathing, low dose CT of the same body region was acquired without IV contrast for attenuation correction and anatomic localization. Unenhanced imaging is limited for the evaluation of some pathology and the acquired CT was not designed to produce diagnostic CT scan quality. Physiologic/non-pathol ogic uptake in some body regions could confound or obscure some pathology. * CT Dose-Length Product (DLP): 278 mGy*cm * CT Dose Reduction Employed: Yes * Blood glucose: 85 mg/dL * Injection site: Left Forearm-Antecubital * Injected activity: 12 mCi * Uptake Time: 64 minutes * Radiopharmaceutical: Q04-[id number] (FDG) COMPARISON: FDG PET/CT 08/22/2023 CORRELATION: CT chest & abdomen/pelvis 12/27/2024, thyroid ultrasound 08/30/2024 RESULT: REFERENCES: FDG uptake is used as a surrogate marker for glucose metabolism. All reported standardized uptake values represent maximum SUV (SUVmax) per body weight, unless otherwise specified. SUV reference values, as follows: * Blood Pool (Descending Aorta): SUVmax 2.3 * Background Liver: SUVmax 3.3; SUVmean 2.5 Localizer Images: No additional findings. HEAD AND NECK: Head: No radiotracer avid lesion or mass effect in the imaged intracranial compartment. Aerodigestive Tract: Asymmetric uptake at the right tonsillar region measures SUV max 4.6 and correlates with an area of nodular thickening on CT (3:22). Lymph Nodes: No radiotracer avid lymphadenopathy. Neck Soft Tissues: Tracer avid left thyroid nodule has increased in intensity, measuring SUV max 7.5, previously 5.3. CHEST: Lungs & Pleura: A tracer avid right middle lobe nodule has resolved, with an area of presumed posttreatment related atelectasis in this region. A basilar right lower lobe nodule has increased in metabolic activity and size, measuring SUV max 5.5, 1.4 x 1.0 cm (3:96), previously SUV max 1.6, 0.6 cm. Redemonstrated left upper lobe atelectasis/scarring. No pleural effusion. Lymph Nodes: No radiotracer avid lymphadenopathy. Mediastinum: No radiotracer avid mass. Cardiovascular: Blood pool activity. No pericardial effusion. Normal heart size. A left chest wall port tip terminates near the superior cavoatrial junction Chest Wall: Postsurgical changes of right mastectomy. No radiotracer avid soft tissue lesion. ABDOMEN AND PELVIS: Hepatobiliary: No radiotracer avid lesion. No measurable mass. Spleen: No radiotracer avid lesion. No splenomegaly. Pancreas: No radiotracer avid lesion. Adrenals: No radiotracer avid nodule. Urinary Tract: Physiologic radiotracer excretion in the renal collecting systems and urinary bladder. No hydronephrosis. GI Tract: No radiotracer avid lesion. No bowel dilation. Peritoneum: No radiotracer avid lesion. No ascites. Lymph Nodes: No radiotracer avid lymphadenopathy. Vasculature: Blood pool activity. Pelvic Organs: No radiotracer avid lesion. Calcified uterine fibroids. MUSCULOSKELETAL: Bones: No radiotracer avid lesion. Degenerative changes. Scoliotic curvature of the spine.. Soft Tissues: No radiotracer avid lesion. IMPRESSION Since FDG PET/CT 08/22/2023, PRIMARY DISEASE SITE: * Redemonstrated postsurgical changes of right mastectomy. No metabolically active chest wall recurrence. MARYSE DISEASE: * No metabolically active regional lymphadenopathy. METASTATIC DISEASE: * A basilar right lower lobe nodule has increased in metabolic activity and size, presumed progressive pulmonary metastasis. * Previously noted metabolically active right middle lobe nodule has resolved, with an area of presumed posttreatment related atelectasis in this region. ADDITIONAL FINDINGS: * Asymmetric uptake at the right tonsillar region (SUV max 4.6), correlating with an area of nodular thickening on CT . Correlation with laryngoscopy recommended to exclude underlying suspicious lesion. * Metabolically active left thyroid nodule has increased slightly in intensity. Per thyroid ultrasound on 08/30/2024, annual follow-up imaging was advised. Field Crop Technical Officer: JAH Transcribe Date/Time: Jan 29 2025 4:21P Dictated by : DARSHAN VILLANUEVA MD This examination was interpreted and the report reviewed a (more content not included)... [facility] Radiology Study observation (narrative) [facility] PET+CT Guidance for localiza tion of tumor of Skull base to mid-thigh-- W [id number] IVOrdered By: Ccf Provider on 01-29-[address] [facility] CBC W Auto Differential pane l (Bld)on 01-23-2025 Basophils (Bld) [#/Vol] [facility] Basophils/100 WBC (Bld) 0.2 % [facility] Differential cell count method Nom (Bld) Auto [facility] Eosinophils (Bld) [#/Vol] 0.22 10*3/uL [facility] Eosinophils/100 WBC (Bld) 4.9 % [facility] Erythrocyte distribution width (RBC) [Ratio] 17.6 % High 11.5 - 15.0 % [facility] Hematocrit (Bld) [Volume fraction] 34.1 % Low 36.0 - 46.0 % [facility] Hemoglobin (Bld) [Mass/Vol] 11.7 g/dL 11.5 - 15.5 g/dL [facility] Immature granulocytes (Bld) [#/Vol] NINF [facility] Immature granulocytes/100 WBC (Bld) 0.4 % [facility] Interpretation and review of laboratory results Abnormal [facility] Lymphocytes (Bld) [#/Vol] 0.87 10*3/uL Low [facility] Lymphocytes/100 WBC (Bld) 19.4 % [facility] MCH (RBC) [Entitic mass] 38.2 pg High 26.0 - 34.[address] [facility] MCHC (RBC) [Mass/Vol] 34.3 g/dL 30.5 - 36.0 g/dL [facility] MCV (RBC) [Entitic vol] 111.4 fL High 80.0 - 100.[address] [facility] Monocytes (Bld) [#/Vol] 0.53 10*3/uL [facility] Monocytes/100 WBC (Bld) 11.8 % [facility] Neutrophils (Bld) [#/Vol] 2.83 10*3/uL [facility] Neutrophils/100 WBC (Bld) 63.3 % [facility] Nucleated RBC (Bld) [#/Vol] NINF [facility] Nucleated RBC/100 WBC (Bld) [Ratio] 0.0 % /[address] [facility] Platelet mean volume (Bld) [Entitic vol] 9.1 fL 9.0 - 12.[address] [facility] Platelets (Bld) [#/Vol] 157 10*3/uL [facility] RBC (Bld) [#/Vol] 3.06 10*6/uL Low 3.90 - 5.2 0 m/uL [facility] WBC (Bld) [#/Vol] 4.48 10*3/uL [facility] Comprehensive metabolic 2000 panelOrdered By: Sasha Velasco on 01-23-2025 Albumin [Mass/Vol] 3.9 g/dL 3.9 - 4.9 g/dL [facility] ALP [Catalytic activity/Vol] 114 U/L 34 - 123 U/L [facility] ALT [Catalytic activity/Vol] 10 U/L 7 - 38 U/L [facility] Anion gap [Moles/Vol] 10 mmol/L 8 - 15 mmol/L [facility] AST [Catalytic activity/Vol] 22 U/L 13 - 35 U/L [facility] Bilirubin [Mass/Vol] 0.4 mg/dL 0.2 - 1 .3 mg/dL [facility] Calcium [Mass/Vol] 9.1 mg/dL 8.5 - 10. 2 mg/dL [facility] Chloride [Moles/Vol] 105 mmol/L 98 - 10 7 mmol/L [facility] CO2 [Moles/Vol] 26 mmol/L 22 - 30 mmol/L [facility] Creatinine [Mass/Vol] 1.11 mg/dL High 0.58 - 0.96 mg/dL [facility] GFR/1.73 sq M.predicted among non-blacks MDRD (S/P/Bld) [Vol rate/Area] 53 mL/min/{1.73_m2} Low - PINF [facility] Comment on above: Estimated Glomerular Filtration [...] 125 mg/dL High 74 - 99 mg/dL [facility] Comment on above: The [place] Diab[employer] Association (ADA) provides guidance for [...] Standards of Medical Care in Diabetes 2016, [place] [employer]. Diabetes Care. 2016.39(Suppl 1). Interpretation and review of laboratory results Abnormal [facility] Potassium [Moles/Vol] 3.4 mmol/L Low 3.7 - 5.1 mmol/L [facility] Protein [Mass/Vol] 6.1 g/dL Low 6.3 - 8.0 g/dL [facility] Sodium [Moles/Vol] 141 mmol/L 136 - 144 mmol/L [facility] Urea nitrogen [Mass/Vol] 8 mg/dL 7 - 21 mg/dL [facility] CBC W Auto Differential pane l (Bld)on 01-02-2025 Basophils (Bld) [#/Vol] [facility] Basophils/100 WBC (Bld) 0.5 % [facility] Differential cell count method Nom (Bld) Auto [facility] Eosinophils (Bld) [#/Vol] 0.23 10*3/uL [facility] Eosinophils/100 WBC (Bld) 5.2 % [facility] Erythrocyte distribution width (RBC) [Ratio] 17.7 % High 11.5 - 15.0 % [facility] Hematocrit (Bld) [Volume fraction] 35.2 % Low 36.0 - 46.0 % [facility] Hemoglobin (Bld) [Mass/Vol] 12 g/dL 11.5 - 15.5 g/dL [facility] Immature granulocytes (Bld) [#/Vol] [facility] Immature granulocytes/100 WBC (Bld) 0.2 % [facility] Interpretation and review of laboratory results Abnormal [facility] Lymphocytes (Bld) [#/Vol] 0.95 10*3/uL Low [facility] Lymphocytes/100 WBC (Bld) 21.5 % [facility] MCH (RBC) [Entitic mass] 37.6 pg High 26.0 - 34.[address] [facility] MCHC (RBC) [Mass/Vol] 34.1 g/dL 30.5 - 36.0 g/dL [facility] MCV (RBC) [Entitic vol] 110.3 fL High 80.0 - 100.[address] [facility] Monocytes (Bld) [#/Vol] 0.51 10*3/uL [facility] Monocytes/100 WBC (Bld) 11.6 % [facility] Neutrophils (Bld) [#/Vol] 2.69 10*3/uL [facility] Neutrophils/100 WBC (Bld) 61 % [facility] Nucleated RBC (Bld) [#/Vol] [facility] Nucleated RBC/100 WBC (Bld) [Ratio] 0 % /[address] [facility] Platelet mean volume (Bld) [Entitic vol] 9.3 fL 9.0 - 12.[address] [facility] Platelets (Bld) [#/Vol] 162 10*3/uL [facility] RBC (Bld) [#/Vol] 3.19 10*6/uL Low 3.90 - 5.2 0 m/uL [facility] WBC (Bld) [#/Vol] 4.41 10*3/uL [facility] Comprehensive metabolic 2000 panelOrdered By: Sasha Velasco on 01-02-2025 Albumin [Mass/Vol] 3.9 g/dL 3.9 - 4.9 g/dL [facility] ALP [Catalytic activity/Vol] 107 U/L 34 - 123 U/L [facility] ALT [Catalytic activity/Vol] 11 U/L 7 - 38 U/L [facility] Anion gap [Moles/Vol] 13 mmol/L 8 - 15 mmol/L [facility] AST [Catalytic activity/Vol] 24 U/L 13 - 35 U/L [facility] Bilirubin [Mass/Vol] 0.5 mg/dL 0.2 - 1 .3 mg/dL [facility] Calcium [Mass/Vol] 9.3 mg/dL 8.5 - 10. 2 mg/dL [facility] Chloride [Moles/Vol] 106 mmol/L 98 - 10 7 mmol/L [facility] CO2 [Moles/Vol] 24 mmol/L 22 - 30 mmol/L [facility] Creatinine [Mass/Vol] 1.08 mg/dL High 0.58 - 0.96 mg/dL [facility] GFR/1.73 sq M.predicted among non-blacks MDRD (S/P/Bld) [Vol rate/Area] 55 mL/min/{1.73_m2} Low - PINF [facility] Comment on above: Estimated Glomerular Filtration [...] not accurately reflect actual GFR. Glucose [Mass/Vol] 135 mg/dL High 74 - 99 mg/dL [facility] Comment on above: The [place] Diabete [employer] Association (ADA) provides guidance for [...] Standards of Medical Care in Diabetes 2016, [place] [employer]. Diabetes Care. 2016.39(Suppl 1). Interpretation and review of laboratory results Abnormal [facility] Potassium [Moles/Vol] 3.5 mmol/L Low 3.7 - 5.1 mmol/L [facility] Protein [Mass/Vol] 6 g/dL Low 6.3 - 8.0 g/dL [facility] Sodium [Moles/Vol] 143 mmol/L 136 - 144 mmol/L [facility] Urea nitrogen [Mass/Vol] 10 mg/dL 7 - 21 mg/dL [facility] Creatinine and Glomerular fi ltration rate.predicted panel (S/P/Bld)Ordered By: Sasha Velasco on 12-27-2024 Creatinine [Mass/Vol] 1.25 mg/dL High 0.58 - 0.96 mg/dL [facility] GFR/1.73 sq M.predicted among non-blacks MDRD (S/P/Bld) [Vol rate/Area] 46 mL/min/{1.73_m2} Low - PINF [facility] Comment on above: Estimated Glomerular Filtration [...] eGFR may not accurately reflect actual GFR. Interpretation and review of laboratory results Abnormal [facility] Echocardiogram study reportO rdered By: Mayco Galeano on 12-19-2024 Study report [facility] [address] [address] ONC Echo Complete 12/19/24 0659 MR#: [id number] Acct: [id number] Name: RENATE CHRISTIANSEN Rep #:[id number] : 1955 69 From: Mayco Hernandez Attending Dr: Caity Cote, PRINCIPAL PLANNER- Status: REG CLI Ordering Dr: Caity Cote PRINCIPAL PLANNER PRINCIPAL PLANNER-C D ate: 12/19/24 Location: CVS Sex: F C Admitted: Reason For Study Reason For Study: Malignant neoplasm of right breast. Procedure This was a 2D Doppler, Color Flow transthoracic echocardiogram. Exam performed in department. Left Ventricle Normal LV size. The left ventricular ejection fraction is 55 %. Stage 1 diastolic dysfunction. Right Ventricle Normal RV size. Normal systolic function. Atria Normal left atrium. Normal right atrium. Mitral Valve Equivocal mitral valve prolapse. Tricuspid Valve Normal tricuspid valve. Mild tricuspid valve insufficiency. Pulmonary artery systolic pressure is 28 mmHg. Aortic Valve Trisinus/trileaflet aortic valve. Pulmonic Valve Normal pulmonic valve. Great Vessels Normal aortic root. The pulmonary artery is normal size. Inferior vena cava collapse with respiration. Pericardium/Pleural No pericardial effusion. MMode/2D Measurements & Calculations LVIDd: 4.3 cm IVSd: 0.82 cm LVOT diam: 2.0 cm LVIDs: 3.3 cm LVPWd: 0.87 cm LVOT area: 3.3 cm2 RVDd: 3.0 cm FS: 24.6 % Ao root diam: 3.5 cm LAV(MOD-bp): 44.3 ml LA A4 area: 13.8 cm2 LAV(MOD-bp) Indexed: 25.1 ml/m2 LAV(MOD-sp2): 54.1 ml LAV(MOD-sp4): 34.0 ml LA dimension(2D): 4.2 cm TAPSE: 2.2 cm RA A4 area: 11.7 cm2 Time Measurements MV dec time: 0.20 sec Doppler Measurements & Calculations MV E max johnathan: 79.2 cm/sec Lat Peak E' Johnathan: 15.3 cm/sec Med Peak E' Johnathan: 5.8 cm/sec MV A max johnathan: 91.5 cm/sec E/E' lat: 5.2 E/E' med: 13.6 MV E/A: 0.87 MV V2 max: 94.5 cm/sec MV P1/2t max johnathan: 81.5 cm/sec Ao V2 max: 117.0 cm/sec MV max P.6 mmHg MV P1/2t: 72.2 msec Ao max P.5 mmHg MV V2 mean: 53.8 cm/sec MV dec slope: 330.7 cm/sec2 Ao V2 mean: 82.5 cm/sec MV mean P.3 mmHg Ao mean P.0 mmHg MV V2 VTI: 30.1 cm MVA(P1/2t): 3.0 cm2 Ao V2 VTI: 27.2 cm MVA(VTI): 2.4 cm2 AV (velocity ratio): 0.81 PARVIN(I,D): 2.7 cm2 PARVIN(V,D): 2.3 cm2 LV V1 max: 80.1 cm/sec SV(LVOT): 73.1 ml PA V2 max: 100.5 cm/sec LV V1 max P.6 mmHg PA V2 mean: 66.3 cm/sec LV V1 mean P.4 mmHg PA mean PG (full): 0.94 mmHg LV V1 mean: 57.5 cm/sec LV V1 VTI: 22.2 cm TR max johnathan: 246.1 cm/sec TR max P.2 mmHg ECHO/ONC Echo Complete Interpretation Summary Normal LV size. The left ventricular ejection fraction is 55 %. Stage 1 diastolic dysfunction. Equivocal mitral valve prolapse. Pulmonary artery systolic pressure is 28 mmHg. The global longitudinal strain is normal. The global longitudinal strain = -17.5% (normal). Ordering Physician: Caity Cote Referring Physician: Isac Billingsley Performed By: Ely Guerrero RDCS, RVT 12/19/24 1312 Date _ Mayco Galeano MD CC: PRINCIPAL PLANNER- Caity Cote; Dr. Isac Billingsley MD ~ Date Dictated: 12/19/24658 Date Transcribed: 12/19/24 1312 Field Crop Technical Officer: Signed [facility] Work Phone: ONC Echo Completeon 12-20-19 ONC Echo Complete [facility] [address] [place] [address] ONC Echo Complete 12/19/24658 MR#: [id number] Acct: [id number] Name: RENATE CHRISTIANSEN Rep #: [id number] : 1955 69 From: Mayco Galeano MD Attending Dr: Caity Cote, PRINCIPAL PLANNER- Status: REG CLI Ordering Dr: Caity Cote PRINCIPAL PLANNER PRINCIPAL PLANNER-C Date: 5 Location: CVS Sex: F C Admitted: Reason For Study Reason For Study: Malignant neoplasm of right breast. Procedure This was a 2D Doppler, Color Flow transthoracic echocardiogram. Exam performed in department. Left Ventricle Normal LV size. The left ventricular ejection fraction is 55 %. Stage 1 diastolic dysfunction. Right Ventricle Normal RV size. Normal systolic function. Atria Normal left atrium. Normal right atrium. Mitral Valve Equivocal mitral valve prolapse. Tricuspid Valve Normal tricuspid valve. Mild tricuspid valve insufficiency. Pulmonary artery systolic pressure is 28 mmHg. Aortic Valve Trisinus/trileaflet aortic valve. Pulmonic Valve Normal pulmonic valve. Great Vessels Normal aortic root. The pulmonary artery is normal size. Inferior vena cava collapse with respiration. Pericardium/Pleural No pericardial effusion. MMode/2D Measurements Calculations LVIDd: 4.3 cm IVSd: 0.82 cm LVOT diam: 2.0 cm LVIDs: 3.3 cm LVPWd: 0.87 cm LVOT area: 3.3 cm2 RVDd: 3.0 cm FS: 24.6 % Ao root diam: 3.5 cm LAV(MOD-bp): 44.3 ml LA A4 area: 13.8 cm2 LAV(MOD-bp) Indexed: 25.1 ml/m2 LAV(MOD-sp2): 54.1 ml LAV(MOD-sp4): 34.0 ml LA dimension(2D): 4.2 cm TAPSE: 2.2 cm RA A4 area: 11.7 cm2 Time Measurements MV dec time: 0.20 sec Doppler Measurements Calculations MV E max johnathan: 79.2 cm/sec Lat Peak E' Johnathan: 15.3 cm/sec Med Peak E' Johnathan: 5.8 cm/sec MV A max johnathan: 91.5 cm/sec E/E' lat: 5.2 E/E' med: 13.6 MV E/A: 0.87 MV V2 max: 94.5 cm/sec MV P1/2t max johnathan: 81.5 cm/sec Ao V2 max: 117.0 cm/sec MV max P.6 mmHg MV P1/2t: 72.2 msec Ao max P.5 mmHg MV V2 mean: 53.8 cm/sec MV dec slope: 330.7 cm/sec2 Ao V2 mean: 82.5 cm/sec MV mean P.3 mmHg Ao mean P.0 mmHg MV V2 VTI: 30.1 cm MVA(P1/2t): 3.0 cm2 Ao V2 VTI: 27.2 cm MVA(VTI): 2.4 cm2 AV (velocity ratio): 0.81 PARVIN(I,D): 2.7 cm2 PARVIN(V,D): 2.3 cm2 LV V1 max: 80.1 cm/sec SV(LVOT): 73.1 ml PA V2 max: 100.5 cm/sec LV V1 max P.6 mmHg PA V2 mean: 66.3 cm/sec LV V1 mean P.4 mmHg PA mean PG (full): 0.94 mmHg LV V1 mean: 57.5 cm/sec LV V1 VTI: 22.2 cm TR max johnathan: 246.1 cm/sec TR max P.2 mmHg ECHO/ONC Echo Complete Interpretation Summary Normal LV size. The left ventricular ejection fraction is 55 %. Stage 1 diastolic dysfunction. Equivocal mitral valve prolapse. Pulmonary artery systolic pressure is 28 mmHg. The global longitudinal strain is normal. The global longitudinal strain = -17.5 % (normal). Ordering Physician: Caity Cote Referring Physician: Isac Billingsley Performed By: Ely Guerrero, STACIE, RVT 12/19/24 1312 Date Mayco Galeano MD CC: PRINCIPAL PLANNER- Caity Cote; Dr. Isac Billingsley MD Date Dictated: 12/19/24658 Date Transcribed: 12/19/241311 Field C[employer] Technical Officer: Signed Normal [facility] CBC W Auto Differential pane l (Bld)on 12-12-2024 Basophils (Bld) [#/Vol] [facility] Basophils/100 WBC (Bld) 0.4 % [facility] Differential cell count method Nom (Bld) Auto [facility] Eosinophils (Bld) [#/Vol] 0.23 10*3/uL [facility] Eosinophils/100 WBC (Bld) 4.6 % [facility] Erythrocyte distribution width (RBC) [Ratio] 17.7 % High 11.5 - 15.0 % [facility] Hematocrit (Bld) [Volume fraction] 33.4 % Low 36.0 - 46.0 % [facility] Hemoglobin (Bld) [Mass/Vol] 11.6 g/dL 11.5 - 15.5 g/dL [facility] Immature granulocytes (Bld) [#/Vol] [facility] Immature granulocytes/100 WBC (Bld) 0 % [facility] Interpretation and review of laboratory results Abnormal [facility] Lymphocytes (Bld) [#/Vol] 1.03 10*3/uL [facility] Lymphocytes/100 WBC (Bld) 20.6 % [facility] MCH (RBC) [Entitic mass] 37.9 pg High 26.0 - 34.[address] [facility] MCHC (RBC) [Mass/Vol] 34.7 g/dL 30.5 - 36.0 g/dL [facility] MCV (RBC) [Entitic vol] 109.2 fL High 80.0 - 100.[address] [facility] Monocytes (Bld) [#/Vol] 0.62 10*3/uL NINF [facility] Monocytes/100 WBC (Bld) 12.4 % [facility] Neutrophils (Bld) [#/Vol] 3.11 10*3/uL [facility] Neutrophils/100 WBC (Bld) 62 % [facility] Nucleated RBC (Bld) [#/Vol] NINF [facility] Nucleated RBC/100 WBC (Bld) [Ratio] 0 % /[address] [facility] Platelet mean volume (Bld) [Entitic vol] 9.5 fL 9.0 - 12.[address] [facility] Platelets (Bld) [#/Vol] 146 10*3/uL Low [facility] RBC (Bld) [#/Vol] 3.06 10*6/uL Low 3.90 - 5.2 0 m/uL [facility] WBC (Bld) [#/Vol] 5.01 10*3/uL [facility] Comprehensive metabolic 2000 panelOrdered By: Sasha Velasco on 12-12-2024 Albumin [Mass/Vol] 3.9 g/dL 3.9 - 4.9 g/dL [facility] ALP [Catalytic activity/Vol] 111 U/L 34 - 123 U/L [facility] ALT [Catalytic activity/Vol] 13 U/L 7 - 38 U/L [facility] Anion gap [Moles/Vol] 10 mmol/L 8 - 15 mmol/L [facility] AST [Catalytic activity/Vol] 26 U/L 13 - 35 U/L [facility] Bilirubin [Mass/Vol] 0.4 mg/dL 0.2 - 1 .3 mg/dL [facility] Calcium [Mass/Vol] 9.2 mg/dL 8.5 - 10. 2 mg/dL [facility] Chloride [Moles/Vol] 106 mmol/L 98 - 10 7 mmol/L [facility] CO2 [Moles/Vol] 25 mmol/L 22 - 30 mmol/L [facility] Creatinine [Mass/Vol] 1.4 mg/dL High 0.58 - 0.96 mg/dL [facility] GFR/1.73 sq M.predicted among non-blacks MDRD (S/P/Bld) [Vol rate/Area] 40 mL/min/{1.73_m2} Low - PINF [facility] Comment on above: Estimated Glomerular Filtration [...] 138 mg/dL High 74 - 99 mg/dL [facility] Comment on above: The [place] [employer] Association (ADA) provides guidance for [...] Standards of Medical Care in Diabetes 2016, [place] [employer]. Diabetes Care. 2016.39(Suppl 1). Interpretation and review of laboratory results Abnormal [facility] Potassium [Moles/Vol] 3.5 mmol/L Low 3.7 - 5.1 mmol/L [facility] Protein [Mass/Vol] 5.9 g/dL Low 6.3 - 8.0 g/dL [facility] Sodium [Moles/Vol] 141 mmol/L 136 - 144 mmol/L [facility] Urea nitrogen [Mass/Vol] 14 mg/dL 7 - 21 mg/dL [facility] CBC W Auto Differential pane l (Bld)on 11-21-2024 Basophils (Bld) [#/Vol] NINF [facility] Basophils/100 WBC (Bld) 0.4 % [facility] Differential cell count method Nom (Bld) Auto [facility] Eosinophils (Bld) [#/Vol] 0.25 10*3/uL NINF [facility] Eosinophils/100 WBC (Bld) 5.4 % [facility] Erythrocyte distribution width (RBC) [Ratio] 18.4 % High 11.5 - 15.0 % [facility] Hematocrit (Bld) [Volume fraction] 35.4 % Low 36.0 - 46.0 % [facility] Hemoglobin (Bld) [Mass/Vol] 11.9 g/dL 11.5 - 15.5 g/dL [facility] Immature granulocytes (Bld) [#/Vol] [facility] Immature granulocytes/100 WBC (Bld) 0.4 % [facility] Interpretation and review of laboratory results Abnormal [facility] Lymphocytes (Bld) [#/Vol] 1.08 10*3/uL [facility] Lymphocytes/100 WBC (Bld) 23.2 % [facility] MCH (RBC) [Entitic mass] 37.1 pg High 26.0 - 34.[address] [facility] MCHC (RBC) [Mass/Vol] 33.6 g/dL 30.5 - 36.0 g/dL [facility] MCV (RBC) [Entitic vol] 110.3 fL High 80.0 - 100.[address] [facility] Monocytes (Bld) [#/Vol] 0.55 10*3/uL NINF [facility] Monocytes/100 WBC (Bld) 11.8 % [facility] Neutrophils (Bld) [#/Vol] 2.73 10*3/uL [facility] Neutrophils/100 WBC (Bld) 58.8 % [facility] Nucleated RBC (Bld) [#/Vol] [facility] Nucleated RBC/100 WBC (Bld) [Ratio] 0 % /[address] [facility] Platelet mean volume (Bld) [Entitic vol] 9.6 fL 9.0 - 12.[address] [facility] Platelets (Bld) [#/Vol] 174 10*3/uL [facility] RBC (Bld) [#/Vol] 3.21 10*6/uL Low 3.90 - 5.2 0 m/uL [facility] WBC (Bld) [#/Vol] 4.65 10*3/uL [facility] Comprehensive metabolic 2000 panelOrdered By: Sasha Velasco on 11-21-2024 Albumin [Mass/Vol] 4 g/dL 3.9 - 4.9 g/dL [facility] ALP [Catalytic activity/Vol] 105 U/L 34 - 123 U/L [facility] ALT [Catalytic activity/Vol] 14 U/L 7 - 38 U/L [facility] Anion gap [Moles/Vol] 11 mmol/L 8 - 15 mmol/L [facility] AST [Catalytic activity/Vol] 26 U/L 13 - 35 U/L [facility] Bilirubin [Mass/Vol] 0.4 mg/dL 0.2 - 1 .3 mg/dL [facility] Calcium [Mass/Vol] 9.8 mg/dL 8.5 - 10. 2 mg/dL [facility] Chloride [Moles/Vol] 103 mmol/L 98 - 10 7 mmol/L [facility] CO2 [Moles/Vol] 26 mmol/L 22 - 30 mmol/L [facility] Creatinine [Mass/Vol] 1.11 mg/dL High 0.58 - 0.96 mg/dL [facility] GFR/1.73 sq M.predicted among non-blacks MDRD (S/P/Bld) [Vol rate/Area] 53 mL/min/{1.73_m2} Low - PINF [facility] Comment on above: Estimated Glomerular Filtration [...] 118 mg/dL High 74 - 99 mg/dL [facility] Comment on above: The [place] [employer] (ADA) provides guidance for [...] Standards of Medical Care in Diabetes 2016, [place] [employer]. Diabetes Care. 2016.39(Suppl 1). Interpretation and review of laboratory results Abnormal [facility] Potassium [Moles/Vol] 4 mmol/L 3.7 - 5.1 mmol/L [facility] Protein [Mass/Vol] 5.9 g/dL Low 6.3 - 8.0 g/dL [facility] Sodium [Moles/Vol] 140 mmol/L 136 - 144 mmol/L [facility] Urea nitrogen [Mass/Vol] 13 mg/dL 7 - 21 mg/dL [facility] CBC W Auto Differential pane l (Bld)on 10-31-2024 Basophils (Bld) [#/Vol] [facility] Basophils/100 WBC (Bld) 0.3 % [facility] Differential cell count method Nom (Bld) Auto [facility] Eosinophils (Bld) [#/Vol] 0.18 10*3/uL [facility] Eosinophils/100 WBC (Bld) 4.8 % [facility] Erythrocyte distribution width (RBC) [Ratio] 17.8 % High 11.5 - 15.0 % [facility] Hematocrit (Bld) [Volume fraction] 35.3 % Low 36.0 - 46.0 % [facility] Hemoglobin (Bld) [Mass/Vol] 12.1 g/dL 11.5 - 15.5 g/dL [facility] Immature granulocytes (Bld) [#/Vol] [facility] Immature granulocytes/100 WBC (Bld) 0.3 % [facility] Interpretation and review of laboratory results Abnormal [facility] Lymphocytes (Bld) [#/Vol] 0.86 10*3/uL Low [facility] Lymphocytes/100 WBC (Bld) 23 % [facility] MCH (RBC) [Entitic mass] 37 pg High 26.0 - 34.[address] [facility] MCHC (RBC) [Mass/Vol] 34.3 g/dL 30.5 - 36.0 g/dL [facility] MCV (RBC) [Entitic vol] 108 fL High 80.0 - 100.[address] [facility] Monocytes (Bld) [#/Vol] 0.4 10*3/uL [facility] Monocytes/100 WBC (Bld) 10.7 % [facility] Neutrophils (Bld) [#/Vol] 2.28 10*3/uL [facility] Neutrophils/100 WBC (Bld) 60.9 % [facility] Nucleated RBC (Bld) [#/Vol] NINF [facility] Nucleated RBC/100 WBC (Bld) [Ratio] 0 % /[address] [facility] Platelet mean volume (Bld) [Entitic vol] 9.7 fL 9.0 - 12.[address] [facility] Platelets (Bld) [#/Vol] 139 10*3/uL Low [facility] RBC (Bld) [#/Vol] 3.27 10*6/uL Low 3.90 - 5.2 0 m/uL [facility] WBC (Bld) [#/Vol] 3.74 10*3/uL [facility] Comprehensive metabolic 2000 panelOrdered By: Sasha Velasco on 10-31-2024 Albumin [Mass/Vol] 3.8 g/dL Low 3.9 - 4.9 g/dL [facility] ALP [Catalytic activity/Vol] 99 U/L 34 - 123 U/L [facility] ALT [Catalytic activity/Vol] 13 U/L 7 - 38 U/L [facility] Anion gap [Moles/Vol] 11 mmol/L 8 - 15 mmol/L [facility] AST [Catalytic activity/Vol] 27 U/L 13 - 35 U/L [facility] Bilirubin [Mass/Vol] 0.5 mg/dL 0.2 - 1 .3 mg/dL [facility] Calcium [Mass/Vol] 9.2 mg/dL 8.5 - 10. 2 mg/dL [facility] Chloride [Moles/Vol] 109 mmol/L High 98 - 10 7 mmol/L [facility] CO2 [Moles/Vol] 23 mmol/L 22 - 30 mmol/L [facility] Creatinine [Mass/Vol] 1.11 mg/dL High 0.58 - 0.96 mg/dL [facility] GFR/1.73 sq M.predicted among non-blacks MDRD (S/P/Bld) [Vol rate/Area] 53 mL/min/{1.73_m2} Low - PINF [facility] Comment on above: Estimated Glomerular Filtration [...] 136 mg/dL High 74 - 99 mg/dL [facility] Comment on above: The [place] [employer] (ADA) provides guidance for [...] Standards of Medical Care in Diabetes 2016, [place] [employer]. Diabetes Care. 2016.39(Suppl 1). Interpretation and review of laboratory results Abnormal [facility] Potassium [Moles/Vol] 3 mmol/L Low 3.7 - 5.1 mmol/L [facility] Protein [Mass/Vol] 5.9 g/dL Low 6.3 - 8.0 g/dL [facility] Sodium [Moles/Vol] 143 mmol/L 136 - 144 mmol/L [facility] Urea nitrogen [Mass/Vol] 10 mg/dL 7 - 21 mg/dL [facility] CBC W Auto Differential pane l (Bld)on 10-10-2024 Basophils (Bld) [#/Vol] [facility] Basophils/100 WBC (Bld) 0.4 % [facility] Differential cell count method Nom (Bld) Auto [facility] Eosinophils (Bld) [#/Vol] 0.18 10*3/uL [facility] Eosinophils/100 WBC (Bld) 3.5 % [facility] Erythrocyte distribution width (RBC) [Ratio] 17.2 % High 11.5 - 15.0 % [facility] Hematocrit (Bld) [Volume fraction] 34.3 % Low 36.0 - 46.0 % [facility] Hemoglobin (Bld) [Mass/Vol] 11.4 g/dL Low 11.5 - 15.5 g/dL [facility] Immature granulocytes (Bld) [#/Vol] [facility] Immature granulocytes/100 WBC (Bld) 0.4 % [facility] Interpretation and review of laboratory results Abnormal [facility] Lymphocytes (Bld) [#/Vol] 1.02 10*3/uL [facility] Lymphocytes/100 WBC (Bld) 20 % [facility] MCH (RBC) [Entitic mass] 36.4 pg High 26.0 - 34.[address] [facility] MCHC (RBC) [Mass/Vol] 33.2 g/dL 30.5 - 36.0 g/dL [facility] MCV (RBC) [Entitic vol] 109.6 fL High 80.0 - 100.[address] [facility] Monocytes (Bld) [#/Vol] 0.5 10*3/uL NINF [facility] Monocytes/100 WBC (Bld) 9.8 % [facility] Neutrophils (Bld) [#/Vol] 3.37 10*3/uL [facility] Neutrophils/100 WBC (Bld) 65.9 % [facility] Nucleated RBC (Bld) [#/Vol] NINF [facility] Nucleated RBC/100 WBC (Bld) [Ratio] 0 % /[address] [facility] Platelet mean volume (Bld) [Entitic vol] 9.8 fL 9.0 - 12.[address] [facility] Platelets (Bld) [#/Vol] 143 10*3/uL Low [facility] RBC (Bld) [#/Vol] 3.13 10*6/uL Low 3.90 - 5.2 0 m/uL [facility] WBC (Bld) [#/Vol] 5.11 10*3/uL [facility] Comprehensive metabolic 2000 panelOrdered By: Alicia Fajardo on 10-10-2024 Albumin [Mass/Vol] 3.5 g/dL Low 3.9 - 4.9 g/dL [facility] ALP [Catalytic activity/Vol] 106 U/L 34 - 123 U/L [facility] ALT [Catalytic activity/Vol] 15 U/L 7 - 38 U/L [facility] Anion gap [Moles/Vol] 7 mmol/L Low 8 - 15 mmol/L [facility] AST [Catalytic activity/Vol] 29 U/L 13 - 35 U/L [facility] Bilirubin [Mass/Vol] 0.6 mg/dL 0.2 - 1 .3 mg/dL [facility] Calcium [Mass/Vol] 9.8 mg/dL 8.5 - 10. 2 mg/dL [facility] Chloride [Moles/Vol] 103 mmol/L 98 - 10 7 mmol/L [facility] CO2 [Moles/Vol] 32 mmol/L High 22 - 30 mmol/L [facility] Creatinine [Mass/Vol] 0.89 mg/dL 0.58 - 0.96 mg/dL [facility] GFR/1.73 sq M.predicted among non-blacks MDRD (S/P/Bld) [Vol rate/Area] 69 mL/min/{1.73_m2} - PINF [facility] Comment on above: Estimated Glomerular Filtration [...] 105 mg/dL High 74 - 99 mg/dL [facility] Comment on above: The [place] [employer] (ADA) provides guidance for [...] Standards of Medical Care in Diabetes 2016, [place] [employer]. Diabetes Care. 2016.39(Suppl 1). Interpretation and review of laboratory results Abnormal [facility] Potassium [Moles/Vol] 4 mmol/L 3.7 - 5.1 mmol/L [facility] Protein [Mass/Vol] 5.9 g/dL Low 6.3 - 8.0 g/dL [facility] Sodium [Moles/Vol] 142 mmol/L 136 - 144 mmol/L [facility] Urea nitrogen [Mass/Vol] 8 mg/dL 7 - 21 mg/dL [facility] CBC W Auto Differential pane l (Bld)on 10-03-2024 Basophils (Bld) [#/Vol] [facility] Basophils/100 WBC (Bld) 0.4 % [facility] Differential cell count method Nom (Bld) Auto [facility] Eosinophils (Bld) [#/Vol] 0.16 10*3/uL [facility] Eosinophils/100 WBC (Bld) 3.4 % [facility] Erythrocyte distribution width (RBC) [Ratio] 17.2 % High 11.5 - 15.0 % [facility] Hematocrit (Bld) [Volume fraction] 33 % Low 36.0 - 46.0 % [facility] Hemoglobin (Bld) [Mass/Vol] 11.1 g/dL Low 11.5 - 15.5 g/dL [facility] Immature granulocytes (Bld) [#/Vol] [facility] Immature granulocytes/100 WBC (Bld) 0.4 % [facility] Interpretation and review of laboratory results Abnormal [facility] Lymphocytes (Bld) [#/Vol] 0.82 10*3/uL Low [facility] Lymphocytes/100 WBC (Bld) 17.4 % [facility] MCH (RBC) [Entitic mass] 36.2 pg High 26.0 - 34.[address] [facility] MCHC (RBC) [Mass/Vol] 33.6 g/dL 30.5 - 36.0 g/dL [facility] MCV (RBC) [Entitic vol] 107.5 fL High 80.0 - 100.[address] [facility] Monocytes (Bld) [#/Vol] 0.53 10*3/uL [facility] Monocytes/100 WBC (Bld) 11.3 % [facility] Neutrophils (Bld) [#/Vol] 3.16 10*3/uL [facility] Neutrophils/100 WBC (Bld) 67.1 % [facility] Nucleated RBC (Bld) [#/Vol] [facility] Nucleated RBC/100 WBC (Bld) [Ratio] 0 % /[address] [facility] Platelet mean volume (Bld) [Entitic vol] 9.6 fL 9.0 - 12.[address] [facility] Platelets (Bld) [#/Vol] 173 10*3/uL [facility] RBC (Bld) [#/Vol] 3.07 10*6/uL Low 3.90 - 5.2 0 m/uL [facility] WBC (Bld) [#/Vol] 4.71 10*3/uL [facility] Comprehensive metabolic 2000 panelOrdered By: Alicia Fajardo on 10-03-2024 Albumin [Mass/Vol] 3.5 g/dL Low 3.9 - 4.9 g/dL [facility] ALP [Catalytic activity/Vol] 95 U/L 34 - 123 U/L [facility] ALT [Catalytic activity/Vol] 25 U/L 7 - 38 U/L [facility] Anion gap [Moles/Vol] 10 mmol/L 8 - 15 mmol/L [facility] AST [Catalytic activity/Vol] 49 U/L High 13 - 35 U/L [facility] Bilirubin [Mass/Vol] 0.6 mg/dL 0.2 - 1 .3 mg/dL [facility] Calcium [Mass/Vol] 9.5 mg/dL 8.5 - 10. 2 mg/dL [facility] Chloride [Moles/Vol] 106 mmol/L 98 - 10 7 mmol/L [facility] CO2 [Moles/Vol] 28 mmol/L 22 - 30 mmol/L [facility] Creatinine [Mass/Vol] 1.33 mg/dL High 0.58 - 0.96 mg/dL [facility] GFR/1.73 sq M.predicted among non-blacks MDRD (S/P/Bld) [Vol rate/Area] 43 mL/min/{1.73_m2} Low - PINF [facility] Comment on above: Estimated Glomerular Filtration [...] 112 mg/dL High 74 - 99 mg/dL [facility] Comment on above: The [place] [employer] (ADA) provides guidance for [...] Standards of Medical Care in Diabetes 2016, [place] [employer]. Diabetes Care. 2016.39(Suppl 1). Interpretation and review of laboratory results Abnormal [facility] Potassium [Moles/Vol] 3.5 mmol/L Low 3.7 - 5.1 mmol/L [facility] Protein [Mass/Vol] 5.6 g/dL Low 6.3 - 8.0 g/dL [facility] Sodium [Moles/Vol] 144 mmol/L 136 - 144 mmol/L [facility] Urea nitrogen [Mass/Vol] 18 mg/dL 7 - 21 mg/dL [facility] Echo Completeon 09-13-2024 Echo Complete [facility] [address] [place] [id number] Echo Complete 09/13/24 1406 MR#: [id number] Acct: [id number] Name: RENATE CHRISTIANSEN Rep #: [id number] : 1955 68 From: Mayco Galeano MD Attending Dr: Dr. Rip Rivers, Status: REG CL I Ordering Dr: Rip Rivers DO Date: 09/13/24 Location: [facility] Sex: F C Admitted: [...] DO Date Dictated: 09/13/241405 Date Transcribed: 09/13/241612 [employer] Technical Officer: Signed Normal [facility] Echocardiogram study reportO rdered By: Mayco Galeano on 09-13-2024 Study report [facility] [address] [place] [address] Echo Complete 09/13/241405 MR#: [id number] Acct: [id number] Name: ERNATE CHRISTIANSEN Rep #:[id number] : 1955 68 From: Mayco Hernandez Attending Dr: Dr. Rip Rivers DO atus: REG CLI Ordering Dr: Rip Rivers DO Date: 09/04 Location: [facility] Sex: F C Admitted: Reason For Study [...] Rivers Performed By: Amber Lou RCS 09/13/24 1611 Date _ Mayco Galeano MD CC: Dr. Isac Billingsley MD; Dr. Rip Rivers DO ~ Date Dictated: 09/13/24 1406 Date Transcribed: 09/13/241612 [employer] Technical Officer: Signed [facility] Work Phone: CBC W Auto Differential pane l (Bld)on 09-05-2024 Basophils (Bld) [#/Vol] [facility] Basophils/100 WBC (Bld) 0.3 % [facility] Differential cell count method Nom (Bld) Auto [facility] Eosinophils (Bld) [#/Vol] 0.12 10*3/uL [facility] Eosinophils/100 WBC (Bld) 3.5 % [facility] Erythrocyte distribution width (RBC) [Ratio] 16.2 % High 11.5 - 15.0 % [facility] Hematocrit (Bld) [Volume fraction] 36.9 % 36.0 - 46.0 % [facility] Hemoglobin (Bld) [Mass/Vol] 12.8 g/dL 11.5 - 15.5 g/dL [facility] Immature granulocytes (Bld) [#/Vol] [facility] Immature granulocytes/100 WBC (Bld) 0.3 % [facility] Interpretation and review of laboratory results Abnormal [facility] Lymphocytes (Bld) [#/Vol] 0.78 10*3/uL Low [facility] Lymphocytes/100 WBC (Bld) 22.5 % [facility] MCH (RBC) [Entitic mass] 37 pg High 26.0 - 34.[address] [facility] MCHC (RBC) [Mass/Vol] 34.7 g/dL 30.5 - 36.0 g/dL [facility] MCV (RBC) [Entitic vol] 106.6 fL High 80.0 - 100.[address] [facility] Monocytes (Bld) [#/Vol] 0.43 10*3/uL [facility] Monocytes/100 WBC (Bld) 12.4 % [facility] Neutrophils (Bld) [#/Vol] 2.11 10*3/uL [facility] Neutrophils/100 WBC (Bld) 61 % [facility] Nucleated RBC (Bld) [#/Vol] [facility] Nucleated RBC/100 WBC (Bld) [Ratio] 0 % /[address] [facility] Platelet mean volume (Bld) [Entitic vol] 9.4 fL 9.0 - 12.[address] [facility] Platelets (Bld) [#/Vol] 122 10*3/uL Low [facility] RBC (Bld) [#/Vol] 3.46 10*6/uL Low 3.90 - 5.2 0 m/uL [facility] WBC (Bld) [#/Vol] 3.46 10*3/uL Low [facility] Comprehensive metabolic 2000 panelOrdered By: Sasha Velasco on 09-05-2024 Albumin [Mass/Vol] 4.1 g/dL 3.9 - 4.9 g/dL [facility] ALP [Catalytic activity/Vol] 126 U/L High 34 - 123 U/L [facility] ALT [Catalytic activity/Vol] 16 U/L 7 - 38 U/L [facility] Anion gap [Moles/Vol] 6 mmol/L Low 8 - 15 mmol/L [facility] AST [Catalytic activity/Vol] 32 U/L 13 - 35 U/L [facility] Bilirubin [Mass/Vol] 0.7 mg/dL 0.2 - 1 .3 mg/dL [facility] Calcium [Mass/Vol] 10 mg/dL 8.5 - 10. 2 mg/dL [facility] Chloride [Moles/Vol] 105 mmol/L 98 - 10 7 mmol/L [facility] CO2 [Moles/Vol] 30 mmol/L 22 - 30 mmol/L [facility] Creatinine [Mass/Vol] 1.05 mg/dL High 0.58 - 0.96 mg/dL [facility] GFR/1.73 sq M.predicted among non-blacks MDRD (S/P/Bld) [Vol rate/Area] 57 mL/min/{1.73_m2} Low - PINF [facility] Comment on above: Estimated Glomerular Filtration [...] 102 mg/dL High 74 - 99 mg/dL [facility] Comment on above: The [place] [employer] (ADA) provides guidance for [...] Standards of Medical Care in Diabetes 2016, [place] [employer]. Diabetes Care. 2016.39(Suppl 1). Interpretation and review of laboratory results Abnormal [facility] Potassium [Moles/Vol] 3.9 mmol/L 3.7 - 5.1 mmol/L [facility] Protein [Mass/Vol] 6.4 g/dL 6.3 - 8.0 g/dL [facility] Sodium [Moles/Vol] 141 mmol/L 136 - 144 mmol/L [facility] Urea nitrogen [Mass/Vol] 9 mg/dL 7 - 21 mg/dL [facility] CBC W Auto Differential pane l (Bld)on 08-30-2024 Basophils (Bld) [#/Vol] [facility] Basophils/100 WBC (Bld) 0.5 % [facility] Differential cell count method Nom (Bld) Auto [facility] Eosinophils (Bld) [#/Vol] 0.15 10*3/uL [facility] Eosinophils/100 WBC (Bld) 4 % [facility] Erythrocyte distribution width (RBC) [Ratio] 15.4 % High 11.5 - 15.0 % [facility] Hematocrit (Bld) [Volume fraction] 35.4 % Low 36.0 - 46.0 % [facility] Hemoglobin (Bld) [Mass/Vol] 12.1 g/dL 11.5 - 15.5 g/dL [facility] Immature granulocytes (Bld) [#/Vol] [facility] Immature granulocytes/100 WBC (Bld) 0.3 % [facility] Interpretation and review of laboratory results Abnormal [facility] Lymphocytes (Bld) [#/Vol] 1 10*3/uL [facility] Lymphocytes/100 WBC (Bld) 26.5 % [facility] MCH (RBC) [Entitic mass] 36.8 pg High 26.0 - 34.[address] [facility] MCHC (RBC) [Mass/Vol] 34.2 g/dL 30.5 - 36.0 g/dL [facility] MCV (RBC) [Entitic vol] 107.6 fL High 80.0 - 100.[address] [facility] Monocytes (Bld) [#/Vol] 0.46 10*3/[facility]L [facility] Monocytes/100 WBC (Bld) 12.2 % [facility] Neutrophils (Bld) [#/Vol] 2.14 10*3/uL [facility] Neutrophils/100 WBC (Bld) 56.5 % [facility] Nucleated RBC (Bld) [#/Vol] NINF [facility] Nucleated RBC/100 WBC (Bld) [Ratio] 0 % /[address] [facility] Platelet mean volume (Bld) [Entitic vol] 9.3 fL 9.0 - 12.[address] [facility] Platelets (Bld) [#/Vol] 136 10*3/uL Low [facility] RBC (Bld) [#/Vol] 3.29 10*6/uL Low 3.90 - 5.2 0 m/uL [facility] WBC (Bld) [#/Vol] 3.78 10*3/uL [facility] Comprehensive metabolic 2000 panelOrdered By: Sasha Velasco on 08-30-2024 Albumin [Mass/Vol] 4 g/dL 3.9 - 4.9 g/dL [facility] ALP [Catalytic activity/Vol] 115 U/L 34 - 123 U/L [facility] ALT [Catalytic activity/Vol] 16 U/L 7 - 38 U/L [facility] Anion gap [Moles/Vol] 5 mmol/L Low 8 - 15 mmol/L [facility] AST [Catalytic activity/Vol] 28 U/L 13 - 35 U/L [facility] Bilirubin [Mass/Vol] 0.5 mg/dL 0.2 - 1 .3 mg/dL [facility] Calcium [Mass/Vol] 9.3 mg/dL 8.5 - 10. 2 mg/dL [facility] Chloride [Moles/Vol] 107 mmol/L 98 - 10 7 mmol/L [facility] CO2 [Moles/Vol] 29 mmol/L 22 - 30 mmol/L [facility] Creatinine [Mass/Vol] 1.36 mg/dL High 0.58 - 0.96 mg/dL [facility] GFR/1.73 sq M.predicted among non-blacks MDRD (S/P/Bld) [Vol rate/Area] 42 mL/min/{1.73_m2} Low - PINF [facility] Comment on above: Estimated Glomerular Filtration [...] [Mass/Vol] 97 mg/dL 74 - 99 mg/dL [facility] Comment on above: The [place] [employer] (ADA) provides guidance for [...] Standards of Medical Care in Diabetes 2016, [place] [employer]. Diabetes Care. 2016.39(Suppl 1). Interpretation and review of laboratory results Abnormal [facility] Potassium [Moles/Vol] 3.8 mmol/L 3.7 - 5.1 mmol/L [facility] Protein [Mass/Vol] 6.1 g/dL Low 6.3 - 8.0 g/dL [facility] Sodium [Moles/Vol] 141 mmol/L 136 - 144 mmol/L [facility] Urea nitrogen [Mass/Vol] 18 mg/dL 7 - 21 mg/dL [facility] CBC W Auto Differential pane l (Bld)on 08-15-2024 Basophils (Bld) [#/Vol] NINF [facility] Basophils/100 WBC (Bld) 0.6 % [facility] Differential cell count method Nom (Bld) Auto [facility] Eosinophils (Bld) [#/Vol] 0.18 10*3/uL NINF [facility] Eosinophils/100 WBC (Bld) 5.6 % [facility] Erythrocyte distribution width (RBC) [Ratio] 15 % 11.5 - 15.0 % [facility] Hematocrit (Bld) [Volume fraction] 36.3 % 36.0 - 46.0 % [facility] Hemoglobin (Bld) [Mass/Vol] 12.1 g/dL 11.5 - 15.5 g/dL [facility] Immature granulocytes (Bld) [#/Vol] [facility] Immature granulocytes/100 WBC (Bld) 0.3 % [facility] Interpretation and review of laboratory results Abnormal [facility] Lymphocytes (Bld) [#/Vol] 0.83 10*3/uL Low [facility] Lymphocytes/100 WBC (Bld) 25.7 % [facility] MCH (RBC) [Entitic mass] 36.8 pg High 26.0 - 34.[address] [facility] MCHC (RBC) [Mass/Vol] 33.3 g/dL 30.5 - 36.0 g/dL [facility] MCV (RBC) [Entitic vol] 110.3 fL High 80.0 - 100.[address] [facility] Monocytes (Bld) [#/Vol] 0.42 10*3/uL [facility] Monocytes/100 WBC (Bld) 13 % [facility] Neutrophils (Bld) [#/Vol] 1.77 10*3/uL [facility] Neutrophils/100 WBC (Bld) 54.8 % [facility] Nucleated RBC (Bld) [#/Vol] [facility] Nucleated RBC/100 WBC (Bld) [Ratio] 0 % /[address] [facility] Platelet mean volume (Bld) [Entitic vol] 9.3 fL 9.0 - 12.[address] [facility] Platelets (Bld) [#/Vol] 120 10*3/uL Low [facility] RBC (Bld) [#/Vol] 3.29 10*6/uL Low 3.90 - 5.2 0 m/uL [facility] WBC (Bld) [#/Vol] 3.23 10*3/uL Low [facility] Comprehensive metabolic 2000 panelOrdered By: Alicia Fajardo on 08-15-2024 Albumin [Mass/Vol] 3.9 g/dL 3.9 - 4.9 g/dL [facility] ALP [Catalytic activity/Vol] 119 U/L 34 - 123 U/L [facility] ALT [Catalytic activity/Vol] 19 U/L 7 - 38 U/L [facility] Anion gap [Moles/Vol] 7 mmol/L Low 8 - 15 mmol/L [facility] AST [Catalytic activity/Vol] 33 U/L 13 - 35 U/L [facility] Bilirubin [Mass/Vol] 0.7 mg/dL 0.2 - 1 .3 mg/dL [facility] Calcium [Mass/Vol] 9.4 mg/dL 8.5 - 10. 2 mg/dL [facility] Chloride [Moles/Vol] 103 mmol/L 98 - 10 7 mmol/L [facility] CO2 [Moles/Vol] 31 mmol/L High 22 - 30 mmol/L [facility] Creatinine [Mass/Vol] 0.99 mg/dL High 0.58 - 0.96 mg/dL [facility] GFR/1.73 sq M.predicted among non-blacks MDRD (S/P/Bld) [Vol rate/Area] 61 mL/min/{1.73_m2} - PINF [facility] Comment on above: Estimated Glomerular Filtration [...] 104 mg/dL High 74 - 99 mg/dL [facility] Comment on above: The [place] [employer] (ADA) provides guidance for [...] Standards of Medical Care in Diabetes 2016, [place] [employer]. Diabetes Care. 2016.39(Suppl 1). Interpretation and review of laboratory results Abnormal [facility] Potassium [Moles/Vol] 3.6 mmol/L Low 3.7 - 5.1 mmol/L [facility] Protein [Mass/Vol] 5.9 g/dL Low 6.3 - 8.0 g/dL [facility] Sodium [Moles/Vol] 141 mmol/L 136 - 144 mmol/L [facility] Urea nitrogen [Mass/Vol] 12 mg/dL 7 - 21 mg/dL [facility] CBC W Auto Differential pane l (Bld)on 07-25-2024 Basophils (Bld) [#/Vol] [facility] Basophils/100 WBC (Bld) 0.5 % [facility] Differential cell count method Nom (Bld) Auto [facility] Eosinophils (Bld) [#/Vol] 0.16 10*3/uL [facility] Eosinophils/100 WBC (Bld) 4.2 % [facility] Erythrocyte distribution width (RBC) [Ratio] 14 % 11.5 - 15.0 % [facility] Hematocrit (Bld) [Volume fraction] 39.3 % 36.0 - 46.0 % [facility] Hemoglobin (Bld) [Mass/Vol] 13.2 g/dL 11.5 - 15.5 g/dL [facility] Immature granulocytes (Bld) [#/Vol] [facility] Immature granulocytes/100 WBC (Bld) 0.3 % [facility] Interpretation and review of laboratory results Abnormal [facility] Lymphocytes (Bld) [#/Vol] 0.79 10*3/uL Low [facility] Lymphocytes/100 WBC (Bld) 20.8 % [facility] MCH (RBC) [Entitic mass] 37.7 pg High 26.0 - 34.[address] [facility] MCHC (RBC) [Mass/Vol] 33.6 g/dL 30.5 - 36.0 g/dL [facility] MCV (RBC) [Entitic vol] 112.3 fL High 80.0 - 100.[address] [facility] Monocytes (Bld) [#/Vol] 0.32 10*3/uL [facility] Monocytes/100 WBC (Bld) 8.4 % [facility] Neutrophils (Bld) [#/Vol] 2.49 10*3/uL [facility] Neutrophils/100 WBC (Bld) 65.8 % [facility] Nucleated RBC (Bld) [#/Vol] NINF [facility] Nucleated RBC/100 WBC (Bld) [Ratio] 0 % /[address] [facility] Platelet mean volume (Bld) [Entitic vol] 10.2 fL 9.0 - 12.[address] [facility] Platelets (Bld) [#/Vol] 115 10*3/uL Low [facility] RBC (Bld) [#/Vol] 3.5 10*6/uL Low 3.90 - 5.2 0 m/uL [facility] WBC (Bld) [#/Vol] 3.79 10*3/uL [facility] Comprehensive metabolic 2000 panelOrdered By: Alicia Fajardo on 07-25-2024 Albumin [Mass/Vol] 4.2 g/dL 3.9 - 4.9 g/dL [facility] ALP [Catalytic activity/Vol] 143 U/L High 34 - 123 U/L [facility] ALT [Catalytic activity/Vol] 17 U/L 7 - 38 U/L [facility] Anion gap [Moles/Vol] 11 mmol/L 8 - 15 mmol/L [facility] AST [Catalytic activity/Vol] 31 U/L 13 - 35 U/L [facility] Bilirubin [Mass/Vol] 0.5 mg/dL 0.2 - 1 .3 mg/dL [facility] Calcium [Mass/Vol] 10.2 mg/dL 8.5 - 10. 2 mg/dL [facility] Chloride [Moles/Vol] 104 mmol/L 98 - 10 7 mmol/L [facility] CO2 [Moles/Vol] 27 mmol/L 22 - 30 mmol/L [facility] Creatinine [Mass/Vol] 1.13 mg/dL High 0.58 - 0.96 mg/dL [facility] GFR/1.73 sq M.predicted among non-blacks MDRD (S/P/Bld) [Vol rate/Area] 52 mL/min/{1.73_m2} Low - PINF [facility] Comment on above: Estimated Glomerular Filtration [...] 131 mg/dL High 74 - 99 mg/dL [facility] Comment on above: The [place] [employer] (ADA) provides guidance for [...] Standards of Medical Care in Diabetes 2016, [place] [employer]. Diabetes Care. 2016.39(Suppl 1). Interpretation and review of laboratory results Abnormal [facility] Potassium [Moles/Vol] 3.6 mmol/L Low 3.7 - 5.1 mmol/L [facility] Protein [Mass/Vol] 6.6 g/dL 6.3 - 8.0 g/dL [facility] Sodium [Moles/Vol] 142 mmol/L 136 - 144 mmol/L [facility] Urea nitrogen [Mass/Vol] 17 mg/dL 7 - 21 mg/dL [facility] CBC W Auto Differential pane l (Bld)on 07-04-2024 Basophils (Bld) [#/Vol] [facility] Basophils/100 WBC (Bld) 0.3 % [facility] Differential cell count method Nom (Bld) Auto [facility] Eosinophils (Bld) [#/Vol] 0.15 10*3/uL [facility] Eosinophils/100 WBC (Bld) 4.4 % [facility] Erythrocyte distribution width (RBC) [Ratio] 16.7 % High 11.5 - 15.0 % [facility] Hematocrit (Bld) [Volume fraction] 33.9 % Low 36.0 - 46.0 % [facility] Hemoglobin (Bld) [Mass/Vol] 11.5 g/dL 11.5 - 15.5 g/dL [facility] Immature granulocytes (Bld) [#/Vol] [facility] Immature granulocytes/100 WBC (Bld) 0.6 % [facility] Interpretation and review of laboratory results Abnormal [facility] Lymphocytes (Bld) [#/Vol] 0.93 10*3/uL Low [facility] Lymphocytes/100 WBC (Bld) 27.2 % [facility] MCH (RBC) [Entitic mass] 39.0 pg High 26.0 - 34.[address] [facility] MCHC (RBC) [Mass/Vol] 33.9 g/dL 30.5 - 36.0 g/dL [facility] MCV (RBC) [Entitic vol] 114.9 fL High 80.0 - 100.[address] [facility] Monocytes (Bld) [#/Vol] 0.42 10*3/uL [facility] Monocytes/100 WBC (Bld) 12.3 % [facility] Neutrophils (Bld) [#/Vol] 1.89 10*3/uL [facility] Neutrophils/100 WBC (Bld) 55.2 % [facility] Nucleated RBC (Bld) [#/Vol] [facility] Nucleated RBC/100 WBC (Bld) [Ratio] 0.0 % /[address] [facility] Platelet mean volume (Bld) [Entitic vol] 9.2 fL 9.0 - 12.[address] [facility] Platelets (Bld) [#/Vol] 101 10*3/uL Low [facility] RBC (Bld) [#/Vol] 2.95 10*6/uL Low 3.90 - 5.2 0 m/uL [facility] WBC (Bld) [#/Vol] 3.42 10*3/uL Low [facility] Comprehensive metabolic 2000 panelOrdered By: Sasha Velasco on 07-04-2024 Albumin [Mass/Vol] 4.0 g/dL 3.9 - 4.9 g/dL [facility] ALP [Catalytic activity/Vol] 108 U/L 34 - 123 U/L [facility] ALT [Catalytic activity/Vol] 22 U/L 7 - 38 U/L [facility] Anion gap [Moles/Vol] 9 mmol/L 8 - 15 mmol/L [facility] AST [Catalytic activity/Vol] 40 U/L High 13 - 35 U/L [facility] Bilirubin [Mass/Vol] 0.6 mg/dL 0.2 - 1 .3 mg/dL [facility] Calcium [Mass/Vol] 9.7 mg/dL 8.5 - 10. 2 mg/dL [facility] Chloride [Moles/Vol] 105 mmol/L 98 - 10 7 mmol/L [facility] CO2 [Moles/Vol] 26 mmol/L 22 - 30 mmol/L [facility] Creatinine [Mass/Vol] 1.25 mg/dL High 0.58 - 0.96 mg/dL [facility] GFR/1.73 sq M.predicted among non-blacks MDRD (S/P/Bld) [Vol rate/Area] 46 mL/min/{1.73_m2} Low - PINF [facility] Comment on above: Estimated Glomerular Filtration [...] 143 mg/dL High 74 - 99 mg/dL [facility] Comment on above: The [place] [employer] (ADA) provides guidance for [...] Standards of Medical Care in Diabetes 2016, [place] [employer]. Diabetes Care. 2016.39(Suppl 1). Interpretation and review of laboratory results Abnormal [facility] Potassium [Moles/Vol] 3.8 mmol/L 3.7 - 5.1 mmol/L [facility] Protein [Mass/Vol] 5.8 g/dL Low 6.3 - 8.0 g/dL [facility] Sodium [Moles/Vol] 140 mmol/L 136 - 144 mmol/L [facility] Urea nitrogen [Mass/Vol] 16 mg/dL 7 - 21 mg/dL [facility] CBC W Auto Differential pane l (Bld)on 06-13-2024 Basophils (Bld) [#/Vol] [facility] Basophils/100 WBC (Bld) 0.6 % [facility] Differential cell count method Nom (Bld) Auto [facility] Eosinophils (Bld) [#/Vol] 0.24 10*3/uL [facility] Eosinophils/100 WBC (Bld) 6.9 % [facility] Erythrocyte distribution width (RBC) [Ratio] 17.2 % High 11.5 - 15.0 % [facility] Hematocrit (Bld) [Volume fraction] 35.5 % Low 36.0 - 46.0 % [facility] Hemoglobin (Bld) [Mass/Vol] 12.1 g/dL 11.5 - 15.5 g/dL [facility] Immature granulocytes (Bld) [#/Vol] [facility] Immature granulocytes/100 WBC (Bld) 0.0 % [facility] Interpretation and review of laboratory results Abnormal [facility] Lymphocytes (Bld) [#/Vol] 0.77 10*3/uL Low [facility] Lymphocytes/100 WBC (Bld) 22.0 % [facility] MCH (RBC) [Entitic mass] 39.4 pg High 26.0 - 34.[address] [facility] MCHC (RBC) [Mass/Vol] 34.1 g/dL 30.5 - 36.0 g/dL [facility] MCV (RBC) [Entitic vol] 115.6 fL High 80.0 - 100.[address] [facility] Monocytes (Bld) [#/Vol] 0.51 10*3/uL [facility] Monocytes/100 WBC (Bld) 14.6 % [facility] Neutrophils (Bld) [#/Vol] 1.96 10*3/uL [facility] Neutrophils/100 WBC (Bld) 55.9 % [facility] Nucleated RBC (Bld) [#/Vol] [facility] Nucleated RBC/100 WBC (Bld) [Ratio] 0.0 % /[address] [facility] Platelet mean volume (Bld) [Entitic vol] 9.6 fL 9.0 - 12.[address] [facility] Platelets (Bld) [#/Vol] 138 10*3/uL Low [facility] RBC (Bld) [#/Vol] 3.07 10*6/uL Low 3.90 - 5.2 0 m/uL [facility] WBC (Bld) [#/Vol] 3.50 10*3/uL Low [facility] Comprehensive metabolic 2000 panelOrdered By: Sasha Velasco on 06-13-2024 Albumin [Mass/Vol] 4.0 g/dL 3.9 - 4.9 g/dL [facility] ALP [Catalytic activity/Vol] 112 U/L 34 - 123 U/L [facility] ALT [Catalytic activity/Vol] 18 U/L 7 - 38 U/L [facility] Anion gap [Moles/Vol] 7 mmol/L Low 8 - 15 mmol/L [facility] AST [Catalytic activity/Vol] 35 U/L 13 - 35 U/L [facility] Bilirubin [Mass/Vol] 0.9 mg/dL 0.2 - 1 .3 mg/dL [facility] Calcium [Mass/Vol] 9.2 mg/dL 8.5 - 10. 2 mg/dL [facility] Chloride [Moles/Vol] 106 mmol/L 98 - 10 7 mmol/L [facility] CO2 [Moles/Vol] 27 mmol/L 22 - 30 mmol/L [facility] Creatinine [Mass/Vol] 1.23 mg/dL High 0.58 - 0.96 mg/dL [facility] GFR/1.73 sq M.predicted among non-blacks MDRD (S/P/Bld) [Vol rate/Area] 47 mL/min/{1.73_m2} Low - PINF [facility] Comment on above: Estimated Glomerular Filtration [...] 104 mg/dL High 74 - 99 mg/dL [facility] Comment on above: The [place] [employer] (ADA) provides guidance for [...] Standards of Medical Care in Diabetes 2016, [place] [employer]. Diabetes Care. 2016.39(Suppl 1). Interpretation and review of laboratory results Abnormal [facility] Potassium [Moles/Vol] 4.5 mmol/L 3.7 - 5.1 mmol/L [facility] Protein [Mass/Vol] 6.0 g/dL Low 6.3 - 8.0 g/dL [facility] Sodium [Moles/Vol] 140 mmol/L 136 - 144 mmol/L [facility] Urea nitrogen [Mass/Vol] 15 mg/dL 7 - 21 mg/dL [facility] CBC W Auto Differential pane l (Bld)on 05-23-2024 Basophils (Bld) [#/Vol] [facility] Basophils/100 WBC (Bld) 0.6 % [facility] Differential cell count method Nom (Bld) Auto [facility] Eosinophils (Bld) [#/Vol] 0.21 10*3/uL [facility] Eosinophils/100 WBC (Bld) 5.8 % [facility] Erythrocyte distribution width (RBC) [Ratio] 17.4 % High 11.5 - 15.0 % [facility] Hematocrit (Bld) [Volume fraction] 35.2 % Low 36.0 - 46.0 % [facility] Hemoglobin (Bld) [Mass/Vol] 12.1 g/dL 11.5 - 15.5 g/dL [facility] Immature granulocytes (Bld) [#/Vol] [facility] Immature granulocytes/100 WBC (Bld) 0.3 % [facility] Interpretation and review of laboratory results Abnormal [facility] Lymphocytes (Bld) [#/Vol] 0.65 10*3/uL Low [facility] Lymphocytes/100 WBC (Bld) 18.1 % [facility] MCH (RBC) [Entitic mass] 39.4 pg High 26.0 - 34.[address] [facility] MCHC (RBC) [Mass/Vol] 34.4 g/dL 30.5 - 36.0 g/dL [facility] MCV (RBC) [Entitic vol] 114.7 fL High 80.0 - 100.[address] [facility] Monocytes (Bld) [#/Vol] 0.56 10*3/uL NINF [facility] Monocytes/100 WBC (Bld) 15.6 % [facility] Neutrophils (Bld) [#/Vol] 2.15 10*3/uL [facility] Neutrophils/100 WBC (Bld) 59.6 % [facility] Nucleated RBC (Bld) [#/Vol] NINF [facility] Nucleated RBC/100 WBC (Bld) [Ratio] 0.0 % /[address] [facility] Platelet mean volume (Bld) [Entitic vol] 9.9 fL 9.0 - 12.[address] [facility] Platelets (Bld) [#/Vol] 136 10*3/uL Low [facility] RBC (Bld) [#/Vol] 3.07 10*6/uL Low 3.90 - 5.2 0 m/uL [facility] WBC (Bld) [#/Vol] 3.60 10*3/uL Low [facility] Comprehensive metabolic 2000 panelOrdered By: Sasha Velasco on 05-23-2024 Albumin [Mass/Vol] 4.2 g/dL 3.9 - 4.9 g/dL [facility] ALP [Catalytic activity/Vol] 116 U/L 34 - 123 U/L [facility] ALT [Catalytic activity/Vol] 17 U/L 7 - 38 U/L [facility] Anion gap [Moles/Vol] 9 mmol/L 8 - 15 mmol/L [facility] AST [Catalytic activity/Vol] 37 U/L High 13 - 35 U/L [facility] Bilirubin [Mass/Vol] 1.1 mg/dL 0.2 - 1 .3 [facility] Cal[facility] [Mass/Vol] 10.2 mg/dL 8.5 - 10. 2 mg/dL [facility] Chloride [Moles/Vol] 103 mmol/L 98 - 10 7 mmol/L [facility] CO2 [Moles/Vol] 28 mmol/L 22 - 30 mmol/L [facility] Creatinine [Mass/Vol] 1.40 mg/dL High 0.58 - 0.96 mg/dL [facility] GFR/1.73 sq M.predicted among non-blacks MDRD (S/P/Bld) [Vol rate/Area] 41 mL/min/{1.73_m2} Low - PINF [facility] Comment on above: Estimated Glomerular Filtration [...] 111 mg/dL High 74 - 99 mg/dL [facility] Comment on above: The [place] [employer] (ADA) provides guidance for [...] Standards of Medical Care in Diabetes 2016, [place] [employer]. Diabetes Care. 2016.39(Suppl 1). Interpretation and review of laboratory results Abnormal [facility] Potassium [Moles/Vol] 3.8 mmol/L 3.7 - 5.1 mmol/L [facility] Protein [Mass/Vol] 6.1 g/dL Low 6.3 - 8.0 g/dL [facility] Sodium [Moles/Vol] 140 mmol/L 136 - 144 mmol/L [facility] Urea nitrogen [Mass/Vol] 16 mg/dL 7 - 21 mg/dL [facility] Cardiology Visit Reporton Cardiology Visit Report [facility] 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 Normal [facility] CBC W Auto Differential pane l (Bld)on 05-02-2024 Basophils (Bld) [#/Vol] [facility] Basophils/100 WBC (Bld) 0.3 % [facility] Differential cell count method Nom (Bld) Auto [facility] Eosinophils (Bld) [#/Vol] 0.16 10*3/uL [facility] Eosinophils/100 WBC (Bld) 4.7 % [facility] Erythrocyte distribution width (RBC) [Ratio] 17.7 % High 11.5 - 15.0 % [facility] Hematocrit (Bld) [Volume fraction] 33.9 % Low 36.0 - 46.0 % [facility] [facility] Hemoglobin (Bld) [Mass/Vol] 11.9 g/dL 11.5 - 15.5 g/dL [facility] Immature granulocytes (Bld) [#/Vol] [facility] Immature granulocytes/100 WBC (Bld) 0.0 % [facility] Interpretation and review of laboratory results Abnormal [facility] Lymphocytes (Bld) [#/Vol] 0.80 10*3/uL Low [facility] Lymphocytes/100 WBC (Bld) 23.3 % [facility] MCH (RBC) [Entitic mass] 39.5 pg High 26.0 - 34.[address] [facility] MCHC (RBC) [Mass/Vol] 35.1 g/dL 30.5 - 36.0 g/dL [facility] MCV (RBC) [Entitic vol] 112.6 fL High 80.0 - 100.[address] [facility] Monocytes (Bld) [#/Vol] 0.49 10*3/uL NINF [facility] Monocytes/100 WBC (Bld) 14.3 % [facility] Neutrophils (Bld) [#/Vol] 1.97 10*3/uL [facility] Neutrophils/100 WBC (Bld) 57.4 % [facility] Nucleated RBC (Bld) [#/Vol] NINF [facility] Nucleated RBC/100 WBC (Bld) [Ratio] 0.0 % /[address] [facility] Platelet mean volume (Bld) [Entitic vol] 9.3 fL 9.0 - 12.[address] [facility] Platelets (Bld) [#/Vol] 123 10*3/uL Low [facility] RBC (Bld) [#/Vol] 3.01 10*6/uL Low 3.90 - 5.2 0 m/uL [facility] WBC (Bld) [#/Vol] 3.43 10*3/uL Low [facility] Comprehensive metabolic 2000 panelOrdered By: Evette Landry on 05-02-2024 Albumin [Mass/Vol] 4.1 g/dL 3.9 - 4.9 g/dL [facility] ALP [Catalytic activity/Vol] 116 U/L 34 - 123 U/L [facility] ALT [Catalytic activity/Vol] 23 U/L 7 - 38 U/L [facility] Anion gap [Moles/Vol] 10 mmol/L 8 - 15 mmol/L [facility] AST [Catalytic activity/Vol] 42 U/L High 13 - 35 U/L [facility] Bilirubin [Mass/Vol] 0.8 mg/dL 0.2 - 1 .3 mg/dL [facility] Calcium [Mass/Vol] 10.2 mg/dL 8.5 - 10. 2 mg/dL [facility] Chloride [Moles/Vol] 104 mmol/L 98 - 10 7 mmol/L [facility] CO2 [Moles/Vol] 27 mmol/L 22 - 30 mmol/L [facility] Creatinine [Mass/Vol] 1.12 mg/dL High 0.58 - 0.96 mg/dL [facility] GFR/1.73 sq M.predicted among non-blacks MDRD (S/P/Bld) [Vol rate/Area] 53 mL/min/{1.73_m2} Low - PINF [facility] Comment on above: Estimated Glomerular Filtration [...] 141 mg/dL High 74 - 99 mg/dL [facility] Comment on above: The [place] [employer] (ADA) provides guidance for [...] Standards of Medical Care in Diabetes 2016, [place] [employer]. Diabetes Care. 2016.39(Suppl 1). Interpretation and review of laboratory results Abnormal [facility] Potassium [Moles/Vol] 3.2 mmol/L Low 3.7 - 5.1 mmol/L [facility] Protein [Mass/Vol] 6.1 g/dL Low 6.3 - 8.0 g/dL [facility] Sodium [Moles/Vol] 141 mmol/L 136 - 144 mmol/L [facility] Urea nitrogen [Mass/Vol] 9 mg/dL 7 - 21 mg/dL [facility] CBC W Auto Differential pane l (Bld)on 04-11-2024 Basophils (Bld) [#/Vol] 0.03 10*3/uL NINF [facility] Basophils/100 WBC (Bld) 0.8 % [facility] Differential cell count method Nom (Bld) Auto [facility] Eosinophils (Bld) [#/Vol] 0.26 10*3/uL [facility] Eosinophils/100 WBC (Bld) 7.2 % [facility] Erythrocyte distribution width (RBC) [Ratio] 17.8 % High 11.5 - 15.0 % [facility] Hematocrit (Bld) [Volume fraction] 33.9 % Low 36.0 - 46.0 % [facility] Hemoglobin (Bld) [Mass/Vol] 11.5 g/dL 11.5 - 15.5 g/dL [facility] Immature granulocytes (Bld) [#/Vol] [facility] Immature granulocytes/100 WBC (Bld) 0.3 % [facility] Interpretation and review of laboratory results Abnormal [facility] Lymphocytes (Bld) [#/Vol] 0.79 10*3/uL Low [facility] Lymphocytes/100 WBC (Bld) 21.8 % [facility] MCH (RBC) [Entitic mass] 38.0 pg High 26.0 - 34.[address] [facility] MCHC (RBC) [Mass/Vol] 33.9 g/dL 30.5 - 36.0 g/dL [facility] MCV (RBC) [Entitic vol] 111.9 fL High 80.0 - 100.[address] [facility] Monocytes (Bld) [#/Vol] 0.51 10*3/uL [facility] Monocytes/100 WBC (Bld) 14.1 % [facility] Neutrophils (Bld) [#/Vol] 2.02 10*3/uL [facility] Neutrophils/100 WBC (Bld) 55.8 % [facility] Nucleated RBC (Bld) [#/Vol] [facility] Nucleated RBC/100 WBC (Bld) [Ratio] 0.0 % /[address] [facility] Platelet mean volume (Bld) [Entitic vol] 9.4 fL 9.0 - 12.[address] [facility] Platelets (Bld) [#/Vol] 126 10*3/uL Low [facility] RBC (Bld) [#/Vol] 3.03 10*6/uL Low 3.90 - 5.2 0 m/uL [facility] WBC (Bld) [#/Vol] 3.62 10*3/uL Low [facility] Comprehensive metabolic 2000 panelOrdered By: Sasha Velasco on 04-11-2024 Albumin [Mass/Vol] 3.8 g/dL Low 3.9 - 4.9 g/dL [facility] ALP [Catalytic activity/Vol] 99 U/L 34 - 123 U/L [facility] ALT [Catalytic activity/Vol] 13 U/L 7 - 38 U/L [facility] Anion gap [Moles/Vol] 10 mmol/L 8 - 15 mmol/L [facility] AST [Catalytic activity/Vol] 30 U/L 13 - 35 U/L [facility] Bilirubin [Mass/Vol] 0.7 mg/dL 0.2 - 1 .3 mg/dL [facility] Calcium [Mass/Vol] 9.9 mg/dL 8.5 - 10. 2 mg/dL [facility] Chloride [Moles/Vol] 105 mmol/L 98 - 10 7 mmol/L [facility] CO2 [Moles/Vol] 25 mmol/L 22 - 30 mmol/L [facility] Creatinine [Mass/Vol] 1.11 mg/dL High 0.58 - 0.96 mg/dL [facility] GFR/1.73 sq M.predicted among non-blacks MDRD (S/P/Bld) [Vol rate/Area] 54 mL/min/{1.73_m2} Low - PINF [facility] Comment on above: Estimated Glomerular Filtration [...] 125 mg/dL High 74 - 99 mg/dL [facility] Comment on above: The [place] [employer] (ADA) provides guidance for [...] Standards of Medical Care in Diabetes 2016, [place] [employer]. Diabetes Care. 2016.39(Suppl 1). Interpretation and review of laboratory results Abnormal [facility] Potassium [Moles/Vol] 4.1 mmol/L 3.7 - 5.1 mmol/L [facility] Protein [Mass/Vol] 5.6 g/dL Low 6.3 - 8.0 g/dL [facility] Sodium [Moles/Vol] 140 mmol/L 136 - 144 mmol/L [facility] Urea nitrogen [Mass/Vol] 10 mg/dL 7 - 21 mg/dL [facility] CBC W Auto Differential pane l (Bld)on 03-21-2024 Basophils (Bld) [#/Vol] [facility] Basophils/100 WBC (Bld) 0.3 % [facility] Differential cell count method Nom (Bld) Auto [facility] Eosinophils (Bld) [#/Vol] 0.19 10*3/uL [facility] Eosinophils/100 WBC (Bld) 6.1 % [facility] Erythrocyte distribution width (RBC) [Ratio] 17.0 % High 11.5 - 15.0 % [facility] Hematocrit (Bld) [Volume fraction] 32.8 % Low 36.0 - 46.0 % [facility] Hemoglobin (Bld) [Mass/Vol] 11.2 g/dL Low 11.5 - 15.5 g/dL [facility] Immature granulocytes (Bld) [#/Vol] [facility] Immature granulocytes/100 WBC (Bld) 0.3 % [facility] Interpretation and review of laboratory results Abnormal [facility] Lymphocytes (Bld) [#/Vol] 0.77 10*3/uL Low [facility] Lymphocytes/100 WBC (Bld) 24.8 % [facility] MCH (RBC) [Entitic mass] 38.0 pg High 26.0 - 34.[address] [facility] MCHC (RBC) [Mass/Vol] 34.1 g/dL 30.5 - 36.0 g/dL [facility] MCV (RBC) [Entitic vol] 111.2 fL High 80.0 - 100.[address] [facility] Monocytes (Bld) [#/Vol] 0.40 10*3/uL [facility] Monocytes/100 WBC (Bld) 12.9 % [facility] Neutrophils (Bld) [#/Vol] 1.73 10*3/uL [facility] Neutrophils/100 WBC (Bld) 55.6 % [facility] Nucleated RBC (Bld) [#/Vol] NINF [facility] Nucleated RBC/100 WBC (Bld) [Ratio] 0.0 % /[address] [facility] Platelet mean volume (Bld) [Entitic vol] 9.2 fL 9.0 - 12.[address] [facility] Platelets (Bld) [#/Vol] 124 10*3/uL Low [facility] RBC (Bld) [#/Vol] 2.95 10*6/uL Low 3.90 - 5.2 0 m/uL [facility] WBC (Bld) [#/Vol] 3.11 10*3/uL Low [facility] Comprehensive metabolic 2000 panelOrdered By: Sasha Velasco on 03-21-2024 Albumin [Mass/Vol] 3.9 g/dL 3.9 - 4.9 g/dL [facility] ALP [Catalytic activity/Vol] 112 U/L 34 - 123 U/L [facility] ALT [Catalytic activity/Vol] 15 U/L 7 - 38 U/L [facility] Anion gap [Moles/Vol] 7 mmol/L Low 8 - 15 mmol/L [facility] AST [Catalytic activity/Vol] 33 U/L 13 - 35 U/L [facility] Bilirubin [Mass/Vol] 0.6 mg/dL 0.2 - 1 .3 mg/dL [facility] Calcium [Mass/Vol] 9.4 mg/dL 8.5 - 10. 2 mg/dL [facility] Chloride [Moles/Vol] 108 mmol/L High 98 - 10 7 mmol/L [facility] CO2 [Moles/Vol] 25 mmol/L 22 - 30 mmol/L [facility] Creatinine [Mass/Vol] 1.07 mg/dL High 0.58 - 0.96 mg/dL [facility] GFR/1.73 sq M.predicted among non-blacks MDRD (S/P/Bld) [Vol rate/Area] 56 mL/min/{1.73_m2} Low - PINF [facility] Comment on above: Estimated Glomerular Filtration [...] 116 mg/dL High 74 - 99 mg/dL [facility] Comment on above: The [place] [employer] (ADA) provides guidance for [...] Standards of Medical Care in Diabetes 2016, [place] [employer]. Diabetes Care. 2016.39(Suppl 1). Interpretation and review of laboratory results Abnormal [facility] Potassium [Moles/Vol] 3.8 mmol/L 3.7 - 5.1 mmol/L [facility] Protein [Mass/Vol] 5.7 g/dL Low 6.3 - 8.0 g/dL [facility] Sodium [Moles/Vol] 140 mmol/L 136 - 144 mmol/L [facility] Urea nitrogen [Mass/Vol] 8 mg/dL 7 - 21 mg/dL [facility] CBC W Auto Differential pane l (Bld)on 02-27-2024 Basophils (Bld) [#/Vol] NINF [facility] Basophils/100 WBC (Bld) 0.3 % [facility] Differential cell count method Nom (Bld) Auto [facility] Eosinophils (Bld) [#/Vol] 0.19 10*3/uL NINF [facility] Eosinophils/100 WBC (Bld) 6.1 % [facility] Erythrocyte distribution width (RBC) [Ratio] 17.9 % High 11.5 - 15.0 % [facility] Hematocrit (Bld) [Volume fraction] 32.5 % Low 36.0 - 46.0 % [facility] Hemoglobin (Bld) [Mass/Vol] 11.0 g/dL Low 11.5 - 15.5 g/dL [facility] Immature granulocytes (Bld) [#/Vol] NINF [facility] Immature granulocytes/100 WBC (Bld) 0.3 % [facility] Interpretation and review of laboratory results Abnormal [facility] Lymphocytes (Bld) [#/Vol] 0.77 10*3/uL Low [facility] Lymphocytes/100 WBC (Bld) 24.5 % [facility] MCH (RBC) [Entitic mass] 38.3 pg High 26.0 - 34.[address] [facility] MCHC (RBC) [Mass/Vol] 33.8 g/dL 30.5 - 36.0 g/dL [facility] MCV (RBC) [Entitic vol] 113.2 fL High 80.0 - 100.[address] [facility] Monocytes (Bld) [#/Vol] 0.53 10*3/uL [facility] Monocytes/100 WBC (Bld) 16.9 % [facility] Neutrophils (Bld) [#/Vol] 1.63 10*3/uL [facility] Neutrophils/100 WBC (Bld) 51.9 % [facility] Nucleated [facility] (Bld) [#/Vol] [facility] Nucleated RBC/100 WBC (Bld) [Ratio] 0.0 % /[address] [facility] Platelet mean volume (Bld) [Entitic vol] 9.3 fL 9.0 - 12.[address] [facility] Platelets (Bld) [#/Vol] 136 10*3/uL Low [facility] RBC (Bld) [#/Vol] 2.87 10*6/uL Low 3.90 - 5.2 0 m/uL [facility] WBC (Bld) [#/Vol] 3.14 10*3/uL Low [facility] Comprehensive metabolic 2000 panelOrdered By: Sasha Velasco on 02-27-2024 Albumin [Mass/Vol] 4.0 g/dL 3.9 - 4.9 g/dL [facility] ALP [Catalytic activity/Vol] 111 U/L 34 - 123 U/L [facility] ALT [Catalytic activity/Vol] 18 U/L 7 - 38 U/L [facility] Anion gap [Moles/Vol] 10 mmol/L 8 - 15 mmol/L [facility] AST [Catalytic activity/Vol] 37 U/L High 13 - 35 U/L [facility] Bilirubin [Mass/Vol] 0.6 mg/dL 0.2 - 1 .3 mg/dL [facility] Calcium [Mass/Vol] 9.0 mg/dL 8.5 - 10. 2 mg/dL [facility] Chloride [Moles/Vol] 109 mmol/L High 98 - 10 7 mmol/L [facility] CO2 [Moles/Vol] 22 mmol/L 22 - 30 mmol/L [facility] Creatinine [Mass/Vol] 1.26 mg/dL High 0.58 - 0.96 mg/dL [facility] GFR/1.73 sq M.predicted among non-blacks MDRD (S/P/Bld) [Vol rate/Area] 46 mL/min/{1.73_m2} Low - PINF [facility] Comment on above: Estimated Glomerular Filtration [...] 133 mg/dL High 74 - 99 mg/dL [facility] Comment on above: The [place] [employer] (ADA) provides guidance for [...] Standards of Medical Care in Diabetes 2016, [place] [employer]. Diabetes Care. 2016.39(Suppl 1). Interpretation and review of laboratory results Abnormal [facility] Potassium [Moles/Vol] 4.2 mmol/L 3.7 - 5.1 mmol/L [facility] Protein [Mass/Vol] 5.8 g/dL Low 6.3 - 8.0 g/dL [facility] Sodium [Moles/Vol] 141 mmol/L 136 - 144 mmol/L [facility] Urea nitrogen [Mass/Vol] 9 mg/dL 7 - 21 mg/dL [facility] Comprehensive metabolic 2000 panelOrdered By: Sasha Velasco on 02-03-2024 Albumin [Mass/Vol] 3.8 g/dL Low 3.9 - 4.9 g/dL [facility] ALP [Catalytic activity/Vol] 124 U/L High 34 - 123 U/L [facility] ALT [Catalytic activity/Vol] 24 U/L 7 - 38 U/L [facility] Anion gap [Moles/Vol] 11 mmol/L 8 - 15 mmol/L [facility] AST [Catalytic activity/Vol] 41 U/L High 13 - 35 U/L [facility] Bilirubin [Mass/Vol] 0.8 mg/dL 0.2 - 1 .3 mg/dL [facility] Calcium [Mass/Vol] 9.6 mg/dL 8.5 - 10. 2 mg/dL [facility] Chloride [Moles/Vol] 109 mmol/L High 98 - 10 7 mmol/L [facility] CO2 [Moles/Vol] 23 mmol/L 22 - 30 mmol/L [facility] Creatinine [Mass/Vol] 1.52 mg/dL High 0.58 - 0.96 mg/dL [facility] GFR/1.73 sq M.predicted among non-blacks MDRD (S/P/Bld) [Vol rate/Area] 37 mL/min/{1.73_m2} Low - PINF [facility] Comment on above: Estimated Glomerular Filtration [...] 149 mg/dL High 74 - 99 mg/dL [facility] Comment on above: The [place] [employer] (ADA) provides guidance for [...] Standards of Medical Care in Diabetes 2016, [place] [employer]. Diabetes Care. 2016.39(Suppl 1). Interpretation and review of laboratory results Abnormal [facility] Potassium [Moles/Vol] 3.5 mmol/L Low 3.7 - 5.1 mmol/L [facility] Protein [Mass/Vol] 5.8 g/dL Low 6.3 - 8.0 g/dL [facility] Sodium [Moles/Vol] 143 mmol/L 136 - 144 mmol/L [facility] Urea nitrogen [Mass/Vol] 18 mg/dL 7 - 21 mg/dL [facility] CBC W Auto Differential pane l (Bld)on 01-16-2024 Basophils (Bld) [#/Vol] [facility] Basophils/100 WBC (Bld) 0.6 % [facility] Differential cell count method Nom (Bld) Auto [facility] Eosinophils (Bld) [#/Vol] 0.27 10*3/uL [facility] Eosinophils/100 WBC (Bld) 8.1 % [facility] Erythrocyte distribution width (RBC) [Ratio] 20.0 % High 11.5 - 15.0 % [facility] Hematocrit (Bld) [Volume fraction] 33.9 % Low 36.0 - 46.0 % [facility] Hemoglobin (Bld) [Mass/Vol] 11.3 g/dL Low 11.5 - 15.5 g/dL [facility] Immature granulocytes (Bld) [#/Vol] [facility] Immature granulocytes/100 WBC (Bld) 0.6 % [facility] Interpretation and review of laboratory results Abnormal [facility] Lymphocytes (Bld) [#/Vol] 0.79 10*3/uL Low [facility] Lymphocytes/100 WBC (Bld) 23.7 % [facility] MCH (RBC) [Entitic mass] 35.4 pg High 26.0 - 34.[address] [facility] MCHC (RBC) [Mass/Vol] 33.3 g/dL 30.5 - 36.0 g/dL [facility] MCV (RBC) [Entitic vol] 106.3 fL High 80.0 - 100.[address] [facility] Monocytes (Bld) [#/Vol] 0.52 10*3/uL NINF [facility] Monocytes/100 WBC (Bld) 15.6 % [facility] Neutrophils (Bld) [#/Vol] 1.71 10*3/uL [facility] Neutrophils/100 WBC (Bld) 51.4 % [facility] Nucleated RBC (Bld) [#/Vol] NINF [facility] Nucleated RBC/100 WBC (Bld) [Ratio] 0.0 % /[address] [facility] Platelet mean volume (Bld) [Entitic vol] 9.5 fL 9.0 - 12.[address] [facility] Platelets (Bld) [#/Vol] 79 10*3/uL Low [facility] Comment on above: No clot detected. RBC (Bld) [#/Vol] 3.19 10*6/uL Low 3.90 - 5.2 0 m/uL [facility] WBC (Bld) [#/Vol] 3.33 10*3/uL Low [facility] Comprehensive metabolic 2000 panelOrdered By: Sasha Velasco on 01-16-2024 Albumin [Mass/Vol] 3.7 g/dL Low 3.9 - 4.9 g/dL [facility] ALP [Catalytic activity/Vol] 97 U/L 34 - 123 U/L [facility] ALT [Catalytic activity/Vol] 17 U/L 7 - 38 U/L [facility] Anion gap [Moles/Vol] 7 mmol/L Low 8 - 15 mmol/L [facility] AST [Catalytic activity/Vol] 32 U/L 13 - 35 U/L [facility] Bilirubin [Mass/Vol] 1.0 mg/dL 0.2 - 1 .3 mg/dL [facility] Calcium [Mass/Vol] 10.3 mg/dL High 8.5 - 10. 2 mg/dL [facility] Chloride [Moles/Vol] 109 mmol/L High 98 - 10 7 mmol/L [facility] CO2 [Moles/Vol] 26 mmol/L 22 - 30 mmol/L [facility] Creatinine [Mass/Vol] 0.96 mg/dL 0.58 - 0.96 mg/dL [facility] GFR/1.73 sq M.predicted among non-blacks MDRD (S/P/Bld) [Vol rate/Area] 64 mL/min/{1.73_m2} - PINF [facility] Comment on above: Estimated Glomerular Filtration [...] 125 mg/dL High 74 - 99 mg/dL [facility] Comment on above: The [place] [employer] (ADA) provides guidance for [...] Standards of Medical Care in Diabetes 2016, [place] [employer]. Diabetes Care. 2016.39(Suppl 1). Interpretation and review of laboratory results Abnormal [facility] Potassium [Moles/Vol] 3.4 mmol/L Low 3.7 - 5.1 mmol/L [facility] Protein [Mass/Vol] 5.3 g/dL Low 6.3 - 8.0 g/dL [facility] Sodium [Moles/Vol] 142 mmol/L 136 - 144 mmol/L [facility] Urea nitrogen [Mass/Vol] 13 mg/dL 7 - 21 mg/dL [facility] ONC Echo Limited w/Contrasto n 01-12-2024 ONC Echo Limited w/Contrast [facility] [place] [address] ONC Echo Limited w/Contrast 01/12/24 0702 MR#: [id number] Acct: [id number] Name: RENATE CHRISTIANSEN Rep #: [id number] : [id number] 68 From: Mayco Galeano MD Attending Dr: Dr. Rip Rivers, DO Status: REG CL I Ordering Dr: Rip Rivers DO Date: 01/12/24 Location: [facility] Sex: F C Admitted: Version 2 [...] Referring Physician: Williams Farrell Performed By: Ely Guerrero, STACIE, RVT 01/12/24 1027 Date Mayco Galeano MD CC: Dr. Williams Farrell DO; Dr. Rip Rivers DO Date Dictated: 01/12/24 07 Date Transcribed: 01/12/24 1022 [employer] Technical Officer: Signed Normal [facility] CBC W Auto Differential pane l (Bld)on 01-04-2024 Basophils (Bld) [#/Vol] [facility] Basophils/100 WBC (Bld) 0.2 % [facility] Differential cell count method Nom (Bld) Auto [facility] Eosinophils (Bld) [#/Vol] 0.45 10*3/uL [facility] Eosinophils/100 WBC (Bld) 10.4 % [facility] Erythrocyte distribution width (RBC) [Ratio] 20.5 % High 11.5 - 15.0 % [facility] Hematocrit (Bld) [Volume fraction] 33.2 % Low 36.0 - 46.0 % [facility] Hemoglobin (Bld) [Mass/Vol] 11.3 g/dL Low 11.5 - 15.5 g/dL [facility] Immature granulocytes (Bld) [#/Vol] [facility] Immature granulocytes/100 WBC (Bld) 0.5 % [facility] Interpretation and review of laboratory results Abnormal [facility] Lymphocytes (Bld) [#/Vol] 0.78 10*3/uL Low [facility] Lymphocytes/100 WBC (Bld) 18.0 % [facility] MCH (RBC) [Entitic mass] 35.2 pg High 26.0 - 34.[address] [facility] MCHC (RBC) [Mass/Vol] 34.0 g/dL 30.5 - 36.0 g/dL [facility] MCV (RBC) [Entitic vol] 103.4 fL High 80.0 - 100.[address] [facility] Monocytes (Bld) [#/Vol] 0.55 10*3/uL NINF [facility] Monocytes/100 WBC (Bld) 12.7 % [facility] Neutrophils (Bld) [#/Vol] 2.52 10*3/uL [facility] Neutrophils/100 WBC (Bld) 58.2 % [facility] Nucleated RBC (Bld) [#/Vol] NINF [facility] Nucleated RBC/100 WBC (Bld) [Ratio] 0.0 % /[address] [facility] Platelet mean volume (Bld) [Entitic vol] 9.1 fL 9.0 - 12.[address] [facility] Platelets (Bld) [#/Vol] 149 10*3/uL Low [facility] RBC (Bld) [#/Vol] 3.21 10*6/uL Low 3.90 - 5.2 0 m/uL [facility] WBC (Bld) [#/Vol] 4.33 10*3/uL [facility] CT Chest WO contraston 01-03 IMPRESSION: Stable right middle lobe nodule. No new nodules seen. Interval worsening of patchy nodular opacities in the right upper lobe. Stable bandlike densities in the left upper lobe. No progressive thoracic lymphadenopathy. Hiatal hernia. Sclerotic lesion in the manubrium unchanged. [employer] C[employer] Technical Officer: PSCB Transcribe Date/Time: Jan 04 2024 4:32P Dictated by : NE PISANO MD This examination was interpreted and the report reviewed and electronically signed by: NE PISANO MD on Jan 04 2024 4:41PM [facility] DIVISION OF RADIOLOGY * * *Final Report* * * DATE OF EXAM: Jan 04 2024 4:04PM [facility] 0541 - CT CHEST WO IVCON [...] No additional findings. DIVISION OF RADIOLOGY Provider, [facility] - 01/04/2024 * * *Final Report* * * DATE OF EXAM: Jan 04 2024 4:04PM [facility] 0541 - CT CHEST WO IVCON [...] hernia. Sclerotic lesion in the manubrium unchanged. Field Crop Technical Officer: [facility] Transcribe Date/Time: Jan 04 2024 4:32P Dictated by : NE PISANO MD This examination was interpreted and the report reviewed and electronically signed by: NE PISANO MD on Jan 04 2024 4:41PM EST [facility] Radiology Study observation (narrative) [facility] CT Chest WO contrastOrdered By: Ccf Provider on 01-04-[address] [facility] Comprehensive metabolic 2000 panelOrdered By: Sasha Velasco on 01-04-2024 Albumin [Mass/Vol] 4.0 g/dL 3.9 - 4.9 g/dL [facility] ALP [Catalytic activity/Vol] 121 U/L 34 - 123 U/L [facility] ALT [Catalytic activity/Vol] 44 U/L High 7 - 38 U/L [facility] Anion gap [Moles/Vol] 9 mmol/L 8 - 15 mmol/L [facility] AST [Catalytic activity/Vol] 47 U/L High 13 - 35 U/L [facility] Bilirubin [Mass/Vol] 1.0 mg/dL 0.2 - 1 .3 mg/dL [facility] Calcium [Mass/Vol] 9.1 mg/dL 8.5 - 10. 2 mg/dL [facility] Chloride [Moles/Vol] 105 mmol/L 98 - 10 7 mmol/L [facility] CO2 [Moles/Vol] 24 mmol/L 22 - 30 mmol/L [facility] Creatinine [Mass/Vol] 1.34 mg/dL High 0.58 - 0.96 mg/dL [facility] GFR/1.73 sq M.predicted among non-blacks MDRD (S/P/Bld) [Vol rate/Area] 43 mL/min/{1.73_m2} Low - PINF [facility] Comment on above: Estimated Glomerular Filtration [...] 138 mg/dL High 74 - 99 mg/dL [facility] Comment on above: The [place] [employer] Association (ADA) provides guidance for [...] Standards of Medical Care in Diabetes 2016, [place] [employer]. Diabetes Care. 2016.39(Suppl 1). Interpretation and review of laboratory results Abnormal [facility] Potassium [Moles/Vol] 3.7 mmol/L 3.7 - 5.1 mmol/L [facility] Protein [Mass/Vol] 5.7 g/dL Low 6.3 - 8.0 g/dL [facility] Sodium [Moles/Vol] 138 mmol/L 136 - 144 mmol/L [facility] Urea nitrogen [Mass/Vol] 14 mg/dL 7 - 21 mg/dL [facility] Laboratory - Chemistry and C hemistry - challengeOrdered By: Sasha Velasco on 12-15-2023 Creatinine [Mass/Vol] 1.60 mg/dL High 0.58 - 0.96 mg/dL [facility] GFR/1.73 sq M.predicted among non-blacks MDRD (S/P/Bld) [Vol rate/Area] 35 mL/min/{1.73_m2} Low - PINF [facility] Comment on above: Estimated Glomerular Filtration [...] Interpretation and review of laboratory results Abnormal [facility] CBC W Auto Differential pane l (Bld)on 12-14-2023 Basophils (Bld) [#/Vol] 0.03 10*3/uL [facility] Basophils/100 WBC (Bld) 0.6 % [facility] Differential cell count method Nom (Bld) Auto [facility] Eosinophils (Bld) [#/Vol] 0.56 10*3/uL High [facility] Eosinophils/100 WBC (Bld) 11.6 % [facility] Erythrocyte distribution width (RBC) [Ratio] 17.0 % High 11.5 - 15.0 % [facility] Hematocrit (Bld) [Volume fraction] 35.8 % Low 36.0 - 46.0 % [facility] Hemoglobin (Bld) [Mass/Vol] 12.0 g/dL 11.5 - 15.5 g/dL [facility] Immature granulocytes (Bld) [#/Vol] [facility] Immature granulocytes/100 WBC (Bld) 0.4 % [facility] Interpretation and review of laboratory results Abnormal [facility] Lymphocytes (Bld) [#/Vol] 0.75 10*3/uL Low [facility] Lymphocytes/100 WBC (Bld) 15.6 % [facility] MCH (RBC) [Entitic mass] 34.3 pg High 26.0 - 34.[address] [facility] MCHC (RBC) [Mass/Vol] 33.5 g/dL 30.5 - 36.0 g/dL [facility] MCV (RBC) [Entitic vol] 102.3 fL High 80.0 - 100.[address] [facility] Monocytes (Bld) [#/Vol] 0.57 10*3/uL NINF [facility] Monocytes/100 WBC (Bld) 11.8 % [facility] Neutrophils (Bld) [#/Vol] 2.89 10*3/uL [facility] Neutrophils/100 WBC (Bld) 60.0 % [facility] Nucleated RBC (Bld) [#/Vol] [facility] Nucleated RBC/100 WBC (Bld) [Ratio] 0.0 % /[address] [facility] Platelet mean volume (Bld) [Entitic vol] 9.3 fL 9.0 - 12.[address] [facility] Platelets (Bld) [#/Vol] 158 10*3/uL [facility] RBC (Bld) [#/Vol] 3.50 10*6/uL Low 3.90 - 5.2 0 m/uL [facility] WBC (Bld) [#/Vol] 4.82 10*3/uL [facility] Comprehensive metabolic 2000 panelOrdered By: Evette Landry on 12-14-2023 Albumin [Mass/Vol] 3.8 g/dL Low 3.9 - 4.9 g/dL [facility] ALP [Catalytic activity/Vol] 130 U/L High 34 - 123 U/L [facility] ALT [Catalytic activity/Vol] 24 U/L 7 - 38 U/L [facility] Anion gap [Moles/Vol] 8 mmol/L 8 - 15 mmol/L [facility] AST [Catalytic activity/Vol] 34 U/L 13 - 35 U/L [facility] Bilirubin [Mass/Vol] 0.7 mg/dL 0.2 - 1 .3 mg/dL [facility] Calcium [Mass/Vol] 9.0 mg/dL 8.5 - 10. 2 mg/dL [facility] Chloride [Moles/Vol] 108 mmol/L High 98 - 10 7 mmol/L [facility] CO2 [Moles/Vol] 25 mmol/L 22 - 30 mmol/L [facility] Creatinine [Mass/Vol] 1.77 mg/dL High 0.58 - 0.96 mg/dL [facility] GFR/1.73 sq M.predicted among non-blacks MDRD (S/P/Bld) [Vol rate/Area] 31 mL/min/{1.73_m2} Low - PINF [facility] Comment on above: Estimated Glomerular Filtration [...] 112 mg/dL High 74 - 99 mg/dL [facility] Comment on above: The [place] [employer] (ADA) provides guidance for [...] Standards of Medical Care in Diabetes 2016, [place] [employer]. Diabetes Care. 2016.39(Suppl 1). Interpretation and review of laboratory results Abnormal [facility] Potassium [Moles/Vol] 3.9 mmol/L 3.7 - 5.1 mmol/L [facility] Protein [Mass/Vol] 5.6 g/dL Low 6.3 - 8.0 g/dL [facility] Sodium [Moles/Vol] 141 mmol/L 136 - 144 mmol/L [facility] Urea nitrogen [Mass/Vol] 17 mg/dL 7 - 21 mg/dL [facility] CBC W Auto Differential pane l (Bld)on 06-19-2024 Basophils (Bld) [#/Vol] [facility] Basophils/100 WBC (Bld) 0.3 % [facility] Differential cell count method Nom (Bld) Auto [facility] Eosinophils (Bld) [#/Vol] 0.35 10*3/uL [facility] Eosinophils/100 WBC (Bld) 10.0 % [facility] Erythrocyte distribution width (RBC) [Ratio] 13.6 % 11.5 - 15.0 % [facility] Hematocrit (Bld) [Volume fraction] 36.2 % 36.0 - 46.0 % [facility] Hemoglobin (Bld) [Mass/Vol] 12.2 g/dL 11.5 - 15.5 g/dL [facility] Immature granulocytes (Bld) [#/Vol] [facility] Immature granulocytes/100 WBC (Bld) 0.3 % [facility] Interpretation and review of laboratory results Abnormal [facility] Lymphocytes (Bld) [#/Vol] 0.86 10*3/uL Low [facility] Lymphocytes/100 WBC (Bld) 24.5 % [facility] MCH (RBC) [Entitic mass] 34.4 pg High 26.0 - 34.[address] [facility] MCHC (RBC) [Mass/Vol] 33.7 g/dL 30.5 - 36.0 g/dL [facility] MCV (RBC) [Entitic vol] 102.0 fL High 80.0 - 100.[address] [facility] Monocytes (Bld) [#/Vol] 0.36 10*3/uL [facility] Monocytes/100 WBC (Bld) 10.3 % [facility] Neutrophils (Bld) [#/Vol] 1.92 10*3/uL [facility] Neutrophils/100 WBC (Bld) 54.6 % [facility] Nucleated RBC (Bld) [#/Vol] [facility] Nucleated RBC/100 WBC (Bld) [Ratio] 0.0 % /[address] [facility] Platelet mean volume (Bld) [Entitic vol] 9.2 fL 9.0 - 12.[address] [facility] Platelets (Bld) [#/Vol] 133 10*3/uL Low [facility] RBC (Bld) [#/Vol] 3.55 10*6/uL Low 3.90 - 5.2 0 m/uL [facility] WBC (Bld) [#/Vol] 3.51 10*3/uL Low Alexy [facility] Comprehensive metabolic 2000 panelOrdered By: Sasha Velasco on 11-23-2023 Albumin [Mass/Vol] 3.6 g/dL Low 3.9 - 4.9 g/dL [facility] ALP [Catalytic activity/Vol] 148 U/L High 34 - 123 U/L [facility] ALT [Catalytic activity/Vol] 15 U/L 7 - 38 U/L [facility] Anion gap [Moles/Vol] 9 mmol/L 8 - 15 mmol/L [facility] AST [Catalytic activity/Vol] 30 U/L 13 - 35 U/L [facility] Bilirubin [Mass/Vol] 0.3 mg/dL 0.2 - 1 .3 mg/dL [facility] Calcium [Mass/Vol] 8.7 mg/dL 8.5 - 10. 2 mg/dL [facility] Chloride [Moles/Vol] 108 mmol/L High 98 - 10 7 mmol/L [facility] CO2 [Moles/Vol] 25 mmol/L 22 - 30 mmol/L [facility] Creatinine [Mass/Vol] 1.12 mg/dL High 0.58 - 0.96 mg/dL [facility] GFR/1.73 sq M.predicted among non-blacks MDRD (S/P/Bld) [Vol rate/Area] 53 mL/min/{1.73_m2} Low - PINF [facility] Comment on above: Estimated Glomerular Filtration [...] 131 mg/dL High 74 - 99 mg/dL [facility] Comment on above: The [place] [employer] Association (ADA) provides guidance for [...] Standards of Medical Care in Diabetes 2016, [place] [employer]. Diabetes Care. 2016.39(Suppl 1). Interpretation and review of laboratory results Abnormal [facility] Potassium [Moles/Vol] 4.1 mmol/L 3.7 - 5.1 mmol/L [facility] Protein [Mass/Vol] 5.7 g/dL Low 6.3 - 8.0 g/dL [facility] Sodium [Moles/Vol] 142 mmol/L 136 - 144 mmol/L [facility] Urea nitrogen [Mass/Vol] 10 mg/dL 7 - 21 mg/dL [facility] CBC W Auto Differential pane l (Bld)on 11-11-2023 Basophils (Bld) [#/Vol] [facility] Basophils/100 WBC (Bld) 0.3 % [facility] Differential cell count method Nom (Bld) Auto [facility] Eosinophils (Bld) [#/Vol] 0.24 10*3/uL [facility] Eosinophils/100 WBC (Bld) 6.7 % [facility] Erythrocyte distribution width (RBC) [Ratio] 13.0 % 11.5 - 15.0 % [facility] Hematocrit (Bld) [Volume fraction] 40.5 % 36.0 - 46.0 % [facility] Hemoglobin (Bld) [Mass/Vol] 13.5 g/dL 11.5 - 15.5 g/dL [facility] Immature granulocytes (Bld) [#/Vol] [facility] Immature granulocytes/100 WBC (Bld) 0.0 % [facility] Interpretation and review of laboratory results Abnormal [facility] Lymphocytes (Bld) [#/Vol] 0.87 10*3/uL Low [facility] Lymphocytes/100 WBC (Bld) 24.4 % [facility] MCH (RBC) [Entitic mass] 33.8 pg 26.0 - 34.[address] [facility] MCHC (RBC) [Mass/Vol] 33.3 g/dL 30.5 - 36.0 g/dL [facility] MCV (RBC) [Entitic vol] 101.3 fL High 80.0 - 100.[address] [facility] Monocytes (Bld) [#/Vol] 0.38 10*3/uL [facility] Monocytes/100 WBC (Bld) 10.6 % [facility] Neutrophils (Bld) [#/Vol] 2.07 10*3/uL [facility] Neutrophils/100 WBC (Bld) 58.0 % [facility] Nucleated RBC (Bld) [#/Vol] [facility] Nucleated RBC/100 WBC (Bld) [Ratio] 0.0 % /[address] [facility] Platelet mean volume (Bld) [Entitic vol] 10.1 fL 9.0 - 12.[address] [facility] Platelets (Bld) [#/Vol] 139 10*3/uL Low [facility] RBC (Bld) [#/Vol] 4.00 10*6/uL 3.90 - 5.2 0 m/uL [facility] WBC (Bld) [#/Vol] 3.57 10*3/uL Low [facility] CBC W Auto Differential pane l (Bld)on 11-02-2023 Basophils (Bld) [#/Vol] [facility] Basophils/100 WBC (Bld) 0.6 % [facility] Differential cell count method Nom (Bld) Auto [facility] Eosinophils (Bld) [#/Vol] 0.20 10*3/uL [facility] Eosinophils/100 WBC (Bld) 5.9 % [facility] Erythrocyte distribution width (RBC) [Ratio] 13.2 % 11.5 - 15.0 % [facility] Hematocrit (Bld) [Volume fraction] 41.6 % 36.0 - 46.0 % [facility] Hemoglobin (Bld) [Mass/Vol] 13.7 g/dL 11.5 - 15.5 g/dL [facility] Immature granulocytes (Bld) [#/Vol] [facility] Immature granulocytes/100 WBC (Bld) 0.0 % [facility] Interpretation and review of laboratory results Abnormal [facility] Lymphocytes (Bld) [#/Vol] 0.75 10*3/uL Low [facility] Lymphocytes/100 WBC (Bld) 22.0 % [facility] MCH (RBC) [Entitic mass] 33.7 pg 26.0 - 34.[address] [facility] MCHC (RBC) [Mass/Vol] 32.9 g/dL 30.5 - 36.0 g/dL [facility] MCV (RBC) [Entitic vol] 102.5 fL High 80.0 - 100.[address] [facility] Monocytes (Bld) [#/Vol] 0.39 10*3/uL NINF [facility] Monocytes/100 WBC (Bld) 11.4 % [facility] Neutrophils (Bld) [#/Vol] 2.05 10*3/uL [facility] Neutrophils/100 WBC (Bld) 60.1 % [facility] Nucleated RBC (Bld) [#/Vol] NINF [facility] Nucleated RBC/100 WBC (Bld) [Ratio] 0.0 % /[address] [facility] Platelet mean volume (Bld) [Entitic vol] 10.4 fL 9.0 - 12.[address] [facility] Platelets (Bld) [#/Vol] 106 10*3/uL Low [facility] RBC (Bld) [#/Vol] 4.06 10*6/uL 3.90 - 5.2 0 m/uL [facility] WBC (Bld) [#/Vol] 3.41 10*3/uL Low [facility] Comprehensive metabolic 2000 panelOrdered By: Sasha Velasco on 11-02-2023 Albumin [Mass/Vol] 3.7 g/dL Low 3.9 - 4.9 g/dL [facility] ALP [Catalytic activity/Vol] 179 U/L High 34 - 123 U/L [facility] ALT [Catalytic activity/Vol] 23 U/L 7 - 38 U/L [facility] Anion gap [Moles/Vol] 7 mmol/L Low 9 - 18 mmol/L [facility] AST [Catalytic activity/Vol] 40 U/L High 13 - 35 U/L [facility] Bilirubin [Mass/Vol] 0.5 mg/dL 0.2 - 1 .3 mg/dL [facility] Calcium [Mass/Vol] 9.4 mg/dL 8.5 - 10. 2 mg/dL [facility] Chloride [Moles/Vol] 108 mmol/L High 97 - 10 5 mmol/L [facility] CO2 [Moles/Vol] 27 mmol/L 22 - 30 mmol/L [facility] Creatinine [Mass/Vol] 0.92 mg/dL 0.58 - 0.96 mg/dL [facility] GFR/1.73 sq M.predicted among non-blacks MDRD (S/P/Bld) [Vol rate/Area] 67 mL/min/{1.73_m2} - PINF [facility] Comment on above: Estimated Glomerular Filtration [...] 130 mg/dL High 74 - 99 mg/dL [facility] Comment on above: The [place] [employer] (ADA) provides guidance for [...] Standards of Medical Care in Diabetes 2016, [place] [employer]. Diabetes Care. 2016.39(Suppl 1). Interpretation and review of laboratory results Abnormal [facility] Potassium [Moles/Vol] 3.5 mmol/L Low 3.7 - 5.1 mmol/L [facility] Protein [Mass/Vol] 5.9 g/dL Low 6.3 - 8.0 g/dL [facility] Sodium [Moles/Vol] 142 mmol/L 136 - 144 mmol/L [facility] Urea nitrogen [Mass/Vol] 15 mg/dL 7 - 21 mg/dL [facility] CBC W Auto Differential pane l (Bld)on 10-11-2023 Basophils (Bld) [#/Vol] NINF [facility] Basophils/100 WBC (Bld) 0.4 % [facility] Differential cell count method Nom (Bld) Auto [facility] Eosinophils (Bld) [#/Vol] 0.14 10*3/uL [facility] Eosinophils/100 WBC (Bld) 4.9 % [facility] Erythrocyte distribution width (RBC) [Ratio] 13.5 % 11.5 - 15.0 % [facility] Hematocrit (Bld) [Volume fraction] 39.7 % 36.0 - 46.0 % [facility] Hemoglobin (Bld) [Mass/Vol] 13.1 g/dL 11.5 - 15.5 g/dL [facility] Immature granulocytes (Bld) [#/Vol] [facility] Immature granulocytes/100 WBC (Bld) 0.4 % [facility] Interpretation and review of laboratory results Abnormal [facility] Lymphocytes (Bld) [#/Vol] 0.45 10*3/uL Low [facility] Lymphocytes/100 WBC (Bld) 15.8 % [facility] MCH (RBC) [Entitic mass] 34.0 pg 26.0 - 34.[address] [facility] MCHC (RBC) [Mass/Vol] 33.0 g/dL 30.5 - 36.0 g/dL [facility] MCV (RBC) [Entitic vol] 103.1 fL High 80.0 - 100.[address] [facility] Monocytes (Bld) [#/Vol] 0.38 10*3/uL [facility] Monocytes/100 WBC (Bld) 13.3 % [facility] Neutrophils (Bld) [#/Vol] 1.86 10*3/uL [facility] Neutrophils/100 WBC (Bld) 65.2 % [facility] Nucleated RBC (Bld) [#/Vol] [facility] Nucleated RBC/100 WBC (Bld) [Ratio] 0.0 % /[address] [facility] Platelet mean volume (Bld) [Entitic vol] 10.2 fL 9.0 - 12.[address] [facility] Platelets (Bld) [#/Vol] 79 10*3/uL Low [facility] Comment on above: No clot detected. RBC (Bld) [#/Vol] 3.85 10*6/uL Low 3.90 - 5.2 0 m/uL [facility] WBC (Bld) [#/Vol] 2.85 10*3/uL [facility] Comprehensive metabolic 2000 panelOrdered By: Sasha Velasco on 10-11-2023 Albumin [Mass/Vol] 3.5 g/dL Low 3.9 - 4.9 g/dL [facility] ALP [Catalytic activity/Vol] 167 U/L High 34 - 123 U/L [facility] ALT [Catalytic activity/Vol] 25 U/L 7 - 38 U/L [facility] Anion gap [Moles/Vol] 4 mmol/L Low 9 - 18 mmol/L [facility] AST [Catalytic activity/Vol] 42 U/L High 13 - 35 U/L [facility] Bilirubin [Mass/Vol] 0.5 mg/dL 0.2 - 1 .3 mg/dL [facility] Calcium [Mass/Vol] 9.8 mg/dL 8.5 - 10. 2 mg/dL [facility] Chloride [Moles/Vol] 104 mmol/L 97 - 10 5 mmol/L [facility] CO2 [Moles/Vol] 31 mmol/L High 22 - 30 mmol/L [facility] Creatinine [Mass/Vol] 1.08 mg/dL High 0.58 - 0.96 mg/dL [facility] GFR/1.73 sq M.predicted among non-blacks MDRD (S/P/Bld) [Vol rate/Area] 55 mL/min/{1.73_m2} Low - PINF [facility] Comment on above: Estimated Glomerular Filtration [...] 130 mg/dL High 74 - 99 mg/dL [facility] Comment on above: The [place] [employer] (ADA) provides guidance for [...] Standards of Medical Care in Diabetes 2016, [place] [employer]. Diabetes Care. 2016.39(Suppl 1). Interpretation and review of laboratory results Abnormal [facility] Potassium [Moles/Vol] 3.6 mmol/L Low 3.7 - 5.1 mmol/L [facility] Protein [Mass/Vol] 5.7 g/dL Low 6.3 - 8.0 g/dL [facility] Sodium [Moles/Vol] 139 mmol/L 136 - 144 mmol/L [facility] Urea nitrogen [Mass/Vol] 13 mg/dL 7 - 21 mg/dL [facility] CBC W Auto Differential pane l (Bld)on 09-21-2023 Basophils (Bld) [#/Vol] 0.04 10*3/uL <0.11 k/uL [facility] Basophils/100 WBC (Bld) 0.9 % [facility] Differential cell count method Nom (Bld) Auto [facility] Eosinophils (Bld) [#/Vol] 0.35 10*3/uL <0.46 k/uL [facility] Eosinophils/100 WBC (Bld) 7.8 % [facility] Erythrocyte distribution width (RBC) [Ratio] 14.5 % 11.5 - 15.0 % [facility] Hematocrit (Bld) [Volume fraction] 40.8 % 36.0 - 46.0 % [facility] Hemoglobin (Bld) [Mass/Vol] 13.7 g/dL 11.5 - 15.5 g/dL [facility] Immature granulocytes (Bld) [#/Vol] <0.10 k/uL [facility] Immature granulocytes/100 WBC (Bld) 0.2 % [facility] Lymphocytes (Bld) [#/Vol] 1.15 10*3/uL 1.00 - 4.00 k/uL [facility] Lymphocytes/100 WBC (Bld) 25.7 % [facility] MCH (RBC) [Entitic mass] 34.9 pg High 26.0 - 34.[address] [facility] MCHC (RBC) [Mass/Vol] 33.6 g/dL 30.5 - 36.0 g/dL [facility] MCV (RBC) [Entitic vol] 104.1 fL High 80.0 - 100.[address] [facility] Monocytes (Bld) [#/Vol] 0.52 10*3/uL <0.87 k/uL [facility] Monocytes/100 WBC (Bld) 11.6 % [facility] Neutrophils (Bld) [#/Vol] 2.41 10*3/uL 1.45 - 7.50 k/uL [facility] Neutrophils/100 WBC (Bld) 53.8 % [facility] Nucleated RBC (Bld) [#/Vol] <0.01 k/uL [facility] Nucleated RBC/100 WBC (Bld) [Ratio] 0.0 /[address] [facility] Platelet mean volume (Bld) [Entitic vol] 9.8 fL 9.0 - 12.[address] [facility] Platelets (Bld) [#/Vol] 156 10*3/uL 150 - 400 k/uL [facility] RBC (Bld) [#/Vol] 3.92 10*6/uL 3.90 - 5.2 0 m/uL [facility] WBC (Bld) [#/Vol] 4.48 10*3/uL 3.70 - 11. 00 k/uL [facility] Comprehensive metabolic 2000 panelon 09-21-2023 Albumin [Mass/Vol] 3.9 g/dL 3.9 - 4.9 g/dL [facility] ALP [Catalytic activity/Vol] 169 U/L High 34 - 123 U/L [facility] ALT [Catalytic activity/Vol] 18 U/L 7 - 38 U/L [facility] Anion gap [Moles/Vol] 5 mmol/L Low 9 - 18 mmol/L [facility] AST [Catalytic activity/Vol] 34 U/L 13 - 35 U/L [facility] Bilirubin [Mass/Vol] 0.6 mg/dL 0.2 - 1 .3 mg/dL [facility] Calcium [Mass/Vol] 10.5 mg/dL High 8.5 - 10. 2 mg/dL [facility] Chloride [Moles/Vol] 103 mmol/L 97 - 10 5 mmol/L [facility] CO2 [Moles/Vol] 31 mmol/L High 22 - 30 mmol/L [facility] Creatinine [Mass/Vol] 0.96 mg/dL 0.58 - 0.96 mg/dL [facility] Estimated Glomerular Filtration Rate 64 mL/min/1.73m >=60 mL/min/1.73m [facility] Glucose [Mass/Vol] 112 mg/dL High 74 - 99 mg/dL [facility] Potassium [Moles/Vol] 3.9 mmol/L 3.7 - 5.1 mmol/L [facility] Protein [Mass/Vol] 6.1 g/dL Low 6.3 - 8.0 g/dL [facility] Sodium [Moles/Vol] 139 mmol/L 136 - 144 mmol/L [facility] Urea nitrogen [Mass/Vol] 11 mg/dL 7 - 21 mg/dL [facility] CBC W Auto Differential pane l (Bld)on 08-30-2023 Basophils (Bld) [#/Vol] 0.03 10*3/uL <0.11 k/uL [facility] Basophils/100 WBC (Bld) 1.0 % [facility] Differential cell count method Nom (Bld) Auto [facility] Eosinophils (Bld) [#/Vol] 0.23 10*3/uL <0.46 k/uL [facility] Eosinophils/100 WBC (Bld) 7.8 % [facility] Erythrocyte distribution width (RBC) [Ratio] 15.0 % 11.5 - 15.0 % [facility] Hematocrit (Bld) [Volume fraction] 35.6 % Low 36.0 - 46.0 % [facility] Hemoglobin (Bld) [Mass/Vol] 12.2 g/dL 11.5 - 15.5 g/dL [facility] Immature granulocytes (Bld) [#/Vol] <0.10 k/uL [facility] Immature granulocytes/100 WBC (Bld) 0.0 % [facility] Lymphocytes (Bld) [#/Vol] 1.02 10*3/uL 1.00 - 4.00 k/uL [facility] Lymphocytes/100 WBC (Bld) 34.6 % [facility] MCH (RBC) [Entitic mass] 36.0 pg High 26.0 - 34.[address] [facility] MCHC (RBC) [Mass/Vol] 34.3 g/dL 30.5 - 36.0 g/dL [facility] MCV (RBC) [Entitic vol] 105.0 fL High 80.0 - 100.[address] [facility] Monocytes (Bld) [#/Vol] 0.42 10*3/uL <0.87 k/uL [facility] Monocytes/100 WBC (Bld) 14.2 % [facility] Neutrophils (Bld) [#/Vol] 1.25 10*3/uL Low 1.45 - 7.50 k/uL [facility] Neutrophils/100 WBC (Bld) 42.4 % [facility] Nucleated RBC (Bld) [#/Vol] <0.01 k/uL [facility] Nucleated RBC/100 WBC (Bld) [Ratio] 0.0 /[address] [facility] Platelet mean volume (Bld) [Entitic vol] 9.6 fL 9.0 - 12.[address] [facility] Platelets (Bld) [#/Vol] 169 10*3/uL 150 - 400 k/uL [facility] RBC (Bld) [#/Vol] 3.39 10*6/uL Low 3.90 - 5.2 0 m/uL [facility] WBC (Bld) [#/Vol] 2.95 10*3/uL Low 3.70 - 11. 00 k/uL [facility] Comprehensive metabolic 2000 panelon 08-30-2023 Albumin [Mass/Vol] 3.5 g/dL Low 3.9 - 4.9 g/dL [facility] ALP [Catalytic activity/Vol] 156 U/L High 34 - 123 U/L [facility] ALT [Catalytic activity/Vol] 15 U/L 7 - 38 U/L [facility] Anion gap [Moles/Vol] 7 mmol/L Low 9 - 18 mmol/L [facility] AST [Catalytic activity/Vol] 31 U/L 13 - 35 U/L [facility] Bilirubin [Mass/Vol] 0.5 mg/dL 0.2 - 1 .3 mg/dL [facility] Calcium [Mass/Vol] 10.0 mg/dL 8.5 - 10. 2 mg/dL [facility] Chloride [Moles/Vol] 108 mmol/L High 97 - 10 5 mmol/L [facility] CO2 [Moles/Vol] 25 mmol/L 22 - 30 mmol/L [facility] Creatinine [Mass/Vol] 0.96 mg/dL 0.58 - 0.96 mg/dL [facility] Estimated Glomerular Filtration Rate 64 mL/min/1.73m >=60 mL/min/1.73m [facility] Glucose [Mass/Vol] 132 mg/dL High 74 - 99 mg/dL [facility] Potassium [Moles/Vol] 3.7 mmol/L 3.7 - 5.1 mmol/L [facility] Protein [Mass/Vol] 5.7 g/dL Low 6.3 - 8.0 g/dL [facility] Sodium [Moles/Vol] 140 mmol/L 136 - 144 mmol/L [facility] Urea nitrogen [Mass/Vol] 12 mg/dL 7 - 21 mg/dL [facility] Absolute lymphocyte countOrd ered By: Eze Mack on 08-16-2023 Lymphocytes Auto (Unsp spec) [#/Vol] 0.82 10*3/uL 0.83-4.51 [facility] Automated lymphocyte count a s percentage of total leukocytesOrdered By: Eze Mack on 08-16-2023 Lymphocytes/100 WBC Auto (Unsp spec) 21.9 % 19-41 [facility] Basophil percentageOrdered B y: Eze Mack on 08-16-2023 Basophils/100 WBC (Bld) 0.3 % 0-1 [facility] Bilirubin [Mass/Vol] 0.60 mg/dL 0.20-1.00 [facility] Comment on above: For patients on eltr ombopag therapy, use of Dimension Wright TBIL is not recommended. Chloride [Moles/Vol] 110 mmol/L 98-107 [facility] Eosinophils/100 WBC (Bld) 4.5 % 0-5 [facility] Glucose [Mass/Vol] 104 mg/dL 74-106 [facility] Comment on above: Fasting Glucose resu lt from 100 to 125 mg/dL suggests IMPAIRED HOMEOSTASIS per A.D.A. criteria. Hemoglobin (Bld) [Mass/Vol] 12.0 g/dL 12.0-15.0 [facility] Monocytes/100 WBC (Bld) 7.5 % 0-10 [facility] Neutrophils (Bld) [#/Vol] 2.5 10*3/uL 2.0-7.7 [facility] Neutrophils/100 WBC (Bld) 65.5 % 47-70 [facility] Potassium [Moles/Vol] 3.7 mmol/L 3.5-5.1 [facility] Protein [Mass/Vol] 5.6 g/dL 6.4-8.2 [facility] Sodium [Moles/Vol] 143 mmol/L 136-145 [facility] WBC (Bld) [#/Vol] 3.8 10*3/uL 4.4-11.0 [facility] Determination of erythrocyte mean corpuscular volume (MCV)Ordered By: Eze Mack on 08-16-2023 MCV (RBC) [Entitic vol] 108.0 fL 81-99 [facility] Erythrocyte distribution wid th ratioOrdered By: [facility]23 Erythrocyte distribution width (RBC) [Ratio] 14.5 % 11.6-14.6 [facility] Erythrocyte distribution wid th standard deviationOrdered By: [facility] on 08-16-2023 Erythrocyte distribution width (RBC) [Entitic vol] 57.0 fL 35.1-43.9 [facility] Hematocrit Auto (Bld) [Volum e fraction]Ordered By: Eze Mack on 08-16-2023 Hematocrit (Bld) [Volume fraction] 36.6 % 37-47 [facility] Immature granulocytes/100 WB C Auto (Bld)Ordered By: Ezeglenn Mack on 08-16-2023 Immature granulocytes/100 WBC (Bld) 0.300 % 0.0-0.9 [facility] Comment on above: IG% - Immature Granu locytes (promyelocytes, myelocytes and metamyelocytes) > 1% indicates that a LEFT SHIFT is Present. Laboratory - Chemistry and C hemistry - challengeOrdered By: Eze Mack on 08-16-2023 Albumin/Globulin [Mass ratio] 1.1 {ratio} 0.9-2.4 [facility] ALP [Catalytic activity/Vol] 133 U/L 45-117 [facility] ALT [Catalytic activity/Vol] 25 U/L 13-56 [facility] CO2 [Moles/Vol] 29.0 mmol/L 21.0-32.0 [facility] Globulin (S) [Mass/Vol] 2.7 g/dL 2.2-4.2 [facility] Urea nitrogen/Creatinine [Mass ratio] 16.7 mg/mg 10-20 [facility] Laboratory - Hematology and Cell countsOrdered By: Eze Mack on 08-16-2023 MCH (RBC) [Entitic mass] 35.4 pg 27.0-32.0 [facility] MCHC (RBC) [Mass/Vol] 32.8 g/dL 32-36 [facility] Nucleated RBC/100 WBC (Bld) [Ratio] 0 % 0-5 [facility] Platelet mean volume (Bld) [Entitic vol] 9.9 fL 6.2-12.0 [facility] Platelets (Bld) [#/Vol] 140 10*3/uL 150-450 [facility] No Panel InformationOrdered By: Eze Mack on 08-16-2023 Estimated Creatinine Clearance Calc 54.98 ml/min [facility] Estimated GFR (MDRD) Amer 74 mL/min >60 [facility] Comment on above: GFR Calc Estimated GFR (MDRD) Non-Af Amer 61 mL/min >60 [facility] Comment on above: Non- GFR Calc RBC Auto (Bld) [#/Vol]Ordere d By: Eze Mack on 08-16-2023 RBC (Bld) [#/Vol] 3.39 10*6/uL 4.2-5.4 [facility] Serum or plasma calcium michelle urement (mass/volume)Ordered By: Eze Mack on 08-16-2023 Calcium [Mass/Vol] 9.0 mg/dL 8.5-10.1 [facility] Serum or plasma creatinine m easurement (mass/volume)Ordered By: Eze Mack on 08-16-2023 Creatinine [Mass/Vol] 0.96 mg/dL 0.55-1.02 [facility] Comment on above: The validity of the calculated GFR & GFRAA in patients over 70 years has not been determined. Clinical correlation is essential. Serum or plasma urea nitroge n measurement (mass/volume)Ordered By: Eze aMck on 08-16-2023 Urea nitrogen [Mass/Vol] 16 mg/dL 7-18 [facility] Thin prep Papanicolaou smear with manual screeningOrdered By: Eze Mack on 08-16-2023 Thin prep Papanicolaou smear with manual screening 2.9 g/dL 3.2-5.0 [facility] Thin prep Papanicolaou smear with manual screening 31 U/L 15-37 [facility] Thin prep Papanicolaou smear with manual screening 4 5-15 [facility] CBC W Auto Differential pane l (Bld)on 08-10-2023 Basophils (Bld) [#/Vol] <0.11 k/uL [facility] Basophils/100 WBC (Bld) 0.6 % [facility] Differential cell count method Nom (Bld) Auto [facility] Eosinophils (Bld) [#/Vol] 0.23 10*3/uL <0.46 k/uL [facility] Eosinophils/100 WBC (Bld) 7.3 % [facility] Erythrocyte distribution width (RBC) [Ratio] 14.7 % 11.5 - 15.0 % [facility] Hematocrit (Bld) [Volume fraction] 36.1 % 36.0 - 46.0 % [facility] Hemoglobin (Bld) [Mass/Vol] 12.2 g/dL 11.5 - 15.5 g/dL [facility] Immature granulocytes (Bld) [#/Vol] <0.10 k/uL [facility] Immature granulocytes/100 WBC (Bld) 0.0 % [facility] Lymphocytes (Bld) [#/Vol] 0.88 10*3/uL Low 1.00 - 4.00 k/uL [facility] Lymphocytes/100 WBC (Bld) 28.1 % [facility] MCH (RBC) [Entitic mass] 36.0 pg High 26.0 - 34.[address] [facility] MCHC (RBC) [Mass/Vol] 33.8 g/dL 30.5 - 36.0 g/dL [facility] MCV (RBC) [Entitic vol] 106.5 fL High 80.0 - 100.[address] [facility] Monocytes (Bld) [#/Vol] 0.45 10*3/uL <0.87 k/uL [facility] Monocytes/100 WBC (Bld) 14.4 % [facility] Neutrophils (Bld) [#/Vol] 1.55 10*3/uL 1.45 - 7.50 k/uL [facility] Neutrophils/100 WBC (Bld) 49.6 % [facility] Nucleated RBC (Bld) [#/Vol] <0.01 k/uL [facility] Nucleated RBC/100 WBC (Bld) [Ratio] 0.0 /[address] [facility] Platelet mean volume (Bld) [Entitic vol] 9.5 fL 9.0 - 12.[address] [facility] Platelets (Bld) [#/Vol] 155 10*3/uL 150 - 400 k/uL [facility] RBC (Bld) [#/Vol] 3.39 10*6/uL Low 3.90 - 5.2 0 m/uL [facility] WBC (Bld) [#/Vol] 3.13 10*3/uL Low 3.70 - 11. 00 k/uL [facility] Comprehensive metabolic 2000 panelon 08-10-2023 Albumin [Mass/Vol] 3.6 g/dL Low 3.9 - 4.9 g/dL [facility] ALP [Catalytic activity/Vol] 154 U/L High 34 - 123 U/L [facility] ALT [Catalytic activity/Vol] 18 U/L 7 - 38 U/L [facility] Anion gap [Moles/Vol] 6 mmol/L Low 9 - 18 mmol/L [facility] AST [Catalytic activity/Vol] 33 U/L 13 - 35 U/L [facility] Bilirubin [Mass/Vol] 0.4 mg/dL 0.2 - 1 .3 mg/dL [facility] Calcium [Mass/Vol] 9.9 mg/dL 8.5 - 10. 2 mg/dL [facility] Chloride [Moles/Vol] 107 mmol/L High 97 - 10 5 mmol/L [facility] CO2 [Moles/Vol] 28 mmol/L 22 - 30 mmol/L [facility] Creatinine [Mass/Vol] 0.97 mg/dL High 0.58 - 0.96 mg/dL [facility] Estimated Glomerular Filtration Rate 63 mL/min/1.73m >=60 mL/min/1.73m [facility] Glucose [Mass/Vol] 109 mg/dL High 74 - 99 mg/dL [facility] Potassium [Moles/Vol] 4.0 mmol/L 3.7 - 5.1 mmol/L [facility] Protein [Mass/Vol] 5.8 g/dL Low 6.3 - 8.0 g/dL [facility] Sodium [Moles/Vol] 141 mmol/L 136 - 144 mmol/L [facility] Urea nitrogen [Mass/Vol] 11 mg/dL 7 - 21 mg/dL [facility] CBC W Auto Differential pane l (Bld)on 07-20-2023 Basophils (Bld) [#/Vol] 0.04 10*3/uL <0.11 k/uL [facility] Basophils/100 WBC (Bld) 1.0 % [facility] Differential cell count method Nom (Bld) Auto [facility] Eosinophils (Bld) [#/Vol] 0.31 10*3/uL <0.46 k/uL [facility] Eosinophils/100 WBC (Bld) 7.4 % [facility] Erythrocyte distribution width (RBC) [Ratio] 15.3 % High 11.5 - 15.0 % [facility] Hematocrit (Bld) [Volume fraction] 40.1 % 36.0 - 46.0 % [facility] Hemoglobin (Bld) [Mass/Vol] 13.4 g/dL 11.5 - 15.5 g/dL [facility] Immature granulocytes (Bld) [#/Vol] <0.10 k/uL [facility] Immature granulocytes/100 WBC (Bld) 0.0 % [facility] Lymphocytes (Bld) [#/Vol] 1.06 10*3/uL 1.00 - 4.00 k/uL [facility] Lymphocytes/100 WBC (Bld) 25.4 % [facility] MCH (RBC) [Entitic mass] 35.9 pg High 26.0 - 34.[address] [facility] MCHC (RBC) [Mass/Vol] 33.4 g/dL 30.5 - 36.0 g/dL [facility] MCV (RBC) [Entitic vol] 107.5 fL High 80.0 - 100.[address] [facility] Monocytes (Bld) [#/Vol] 0.40 10*3/uL <0.87 k/uL [facility] Monocytes/100 WBC (Bld) 9.6 % [facility] Neutrophils (Bld) [#/Vol] 2.37 10*3/uL 1.45 - 7.50 k/uL [facility] Neutrophils/100 WBC (Bld) 56.6 % [facility] Nucleated RBC (Bld) [#/Vol] <0.01 k/uL [facility] Nucleated RBC/100 WBC (Bld) [Ratio] 0.0 /[address] [facility] Platelet mean volume (Bld) [Entitic vol] 10.1 fL 9.0 - 12.[address] [facility] Platelets (Bld) [#/Vol] 143 10*3/uL Low 150 - 400 k/uL [facility] RBC (Bld) [#/Vol] 3.73 10*6/uL Low 3.90 - 5.2 0 m/uL [facility] WBC (Bld) [#/Vol] 4.18 10*3/uL 3.70 - 11. 00 k/uL [facility] Comprehensive metabolic 2000 panelon 07-20-2023 Albumin [Mass/Vol] 3.6 g/dL Low 3.9 - 4.9 g/dL [facility] ALP [Catalytic activity/Vol] 179 U/L High 34 - 123 U/L [facility] ALT [Catalytic activity/Vol] 21 U/L 7 - 38 U/L [facility] Anion gap [Moles/Vol] 7 mmol/L Low 9 - 18 mmol/L [facility] AST [Catalytic activity/Vol] 38 U/L High 13 - 35 U/L [facility] Bilirubin [Mass/Vol] 0.6 mg/dL 0.2 - 1 .3 mg/dL [facility] Calcium [Mass/Vol] 9.7 mg/dL 8.5 - 10. 2 mg/dL [facility] Chloride [Moles/Vol] 107 mmol/L High 97 - 10 5 mmol/L [facility] CO2 [Moles/Vol] 27 mmol/L 22 - 30 mmol/L [facility] Creatinine [Mass/Vol] 0.93 mg/dL 0.58 - 0.96 mg/dL [facility] Estimated Glomerular Filtration Rate 67 mL/min/1.73m >=60 mL/min/1.73m [facility] Glucose [Mass/Vol] 132 mg/dL High 74 - 99 mg/dL [facility] Potassium [Moles/Vol] 3.6 mmol/L Low 3.7 - 5.1 mmol/L [facility] Protein [Mass/Vol] 5.8 g/dL Low 6.3 - 8.0 g/dL [facility] Sodium [Moles/Vol] 141 mmol/L 136 - 144 mmol/L [facility] Urea nitrogen [Mass/Vol] 13 mg/dL 7 - 21 mg/dL [facility] CBC W Auto Differential pane l (Bld)on 04-26-2023 Basophils (Bld) [#/Vol] 0.04 10*3/uL <0.11 k/uL [facility] Basophils/100 WBC (Bld) 0.9 % [facility] Differential cell count method Nom (Bld) Auto [facility] Eosinophils (Bld) [#/Vol] 0.35 10*3/uL <0.46 k/uL [facility] Eosinophils/100 WBC (Bld) 8.0 % [facility] Erythrocyte distribution width (RBC) [Ratio] 14.5 % 11.5 - 15.0 % [facility] Hematocrit (Bld) [Volume fraction] 37.8 % 36.0 - 46.0 % [facility] Hemoglobin (Bld) [Mass/Vol] 12.6 g/dL 11.5 - 15.5 g/dL [facility] Immature granulocytes (Bld) [#/Vol] <0.10 k/uL [facility] Immature granulocytes/100 WBC (Bld) 0.2 % [facility] Lymphocytes (Bld) [#/Vol] 1.17 10*3/uL 1.00 - 4.00 k/uL [facility] Lymphocytes/100 WBC (Bld) 26.7 % [facility] MCH (RBC) [Entitic mass] 33.9 pg 26.0 - 34.[address] [facility] MCHC (RBC) [Mass/Vol] 33.3 g/dL 30.5 - 36.0 g/dL [facility] MCV (RBC) [Entitic vol] 101.6 fL High 80.0 - 100.[address] [facility] Monocytes (Bld) [#/Vol] 0.51 10*3/uL <0.87 k/uL [facility] Monocytes/100 WBC (Bld) 11.6 % [facility] Neutrophils (Bld) [#/Vol] 2.30 10*3/uL 1.45 - 7.50 k/uL [facility] Neutrophils/100 WBC (Bld) 52.6 % [facility] Nucleated RBC (Bld) [#/Vol] <0.01 k/uL [facility] Nucleated RBC/100 WBC (Bld) [Ratio] 0.0 /[address] [facility] Platelet mean volume (Bld) [Entitic vol] 9.2 fL 9.0 - 12.[address] [facility] Platelets (Bld) [#/Vol] 176 10*3/uL 150 - 400 k/uL [facility] RBC (Bld) [#/Vol] 3.72 10*6/uL Low 3.90 - 5.2 0 m/uL [facility] WBC (Bld) [#/Vol] 4.38 10*3/uL 3.70 - 11. 00 k/uL [facility] Comprehensive metabolic 2000 panelon 04-26-2023 Albumin [Mass/Vol] 3.7 g/dL Low 3.9 - 4.9 g/dL [facility] ALP [Catalytic activity/Vol] 160 U/L High 34 - 123 U/L [facility] ALT [Catalytic activity/Vol] 16 U/L 7 - 38 U/L [facility] Anion gap [Moles/Vol] 7 mmol/L Low 9 - 18 mmol/L [facility] AST [Catalytic activity/Vol] 32 U/L 13 - 35 U/L [facility] Bilirubin [Mass/Vol] 0.5 mg/dL 0.2 - 1 .3 mg/dL [facility] Calcium [Mass/Vol] 8.9 mg/dL 8.5 - 10. 2 mg/dL [facility] Chloride [Moles/Vol] 107 mmol/L High 97 - 10 5 mmol/L [facility] CO2 [Moles/Vol] 28 mmol/L 22 - 30 mmol/L [facility] Creatinine [Mass/Vol] 0.92 mg/dL 0.58 - 0.96 mg/dL [facility] Estimated Glomerular Filtration Rate 68 mL/min/1.73m >=60 mL/min/1.73m [facility] Glucose [Mass/Vol] 123 mg/dL High 74 - 99 mg/dL [facility] Potassium [Moles/Vol] 3.7 mmol/L 3.7 - 5.1 mmol/L [facility] Protein [Mass/Vol] 5.9 g/dL Low 6.3 - 8.0 g/dL [facility] Sodium [Moles/Vol] 142 mmol/L 136 - 144 mmol/L [facility] Urea nitrogen [Mass/Vol] 9 mg/dL 7 - 21 mg/dL [facility] US THYROID/PARATHYROIDon [facility] CBC W Auto Differential pane l (Bld)on 03-16-2023 Basophils (Bld) [#/Vol] <0.11 k/uL [facility] Basophils/100 WBC (Bld) 0.5 % [facility] Differential cell count method Nom (Bld) Auto [facility] Eosinophils (Bld) [#/Vol] 0.23 10*3/uL <0.46 k/uL [facility] Eosinophils/100 WBC (Bld) 5.4 % [facility] Erythrocyte distribution width (RBC) [Ratio] 13.2 % 11.5 - 15.0 % [facility] Hematocrit (Bld) [Volume fraction] 39.3 % 36.0 - 46.0 % [facility] Hemoglobin (Bld) [Mass/Vol] 13.4 g/dL 11.5 - 15.5 g/dL [facility] Immature granulocytes (Bld) [#/Vol] <0.10 k/uL [facility] Immature granulocytes/100 WBC (Bld) 0.2 % [facility] Lymphocytes (Bld) [#/Vol] 1.06 10*3/uL 1.00 - 4.00 k/uL [facility] Lymphocytes/100 WBC (Bld) 24.7 % [facility] MCH (RBC) [Entitic mass] 35.3 pg High 26.0 - 34.[address] [facility] MCHC (RBC) [Mass/Vol] 34.1 g/dL 30.5 - 36.0 g/dL [facility] MCV (RBC) [Entitic vol] 103.4 fL High 80.0 - 100.[address] [facility] Monocytes (Bld) [#/Vol] 0.46 10*3/uL <0.87 k/uL [facility] Monocytes/100 WBC (Bld) 10.7 % [facility] Neutrophils (Bld) [#/Vol] 2.51 10*3/uL 1.45 - 7.50 k/uL [facility] Neutrophils/100 WBC (Bld) 58.5 % [facility] Nucleated RBC (Bld) [#/Vol] <0.01 k/uL [facility] Nucleated RBC/100 WBC (Bld) [Ratio] 0.0 /[address] [facility] Platelet mean volume (Bld) [Entitic vol] 9.8 fL 9.0 - 12.[address] [facility] Platelets (Bld) [#/Vol] 119 10*3/uL Low 150 - 400 k/uL [facility] RBC (Bld) [#/Vol] 3.80 10*6/uL Low 3.90 - 5.2 0 m/uL [facility] WBC (Bld) [#/Vol] 4.29 10*3/uL 3.70 - 11. 00 k/uL [facility] Comprehensive metabolic 2000 panelon 03-16-2023 Albumin [Mass/Vol] 3.7 g/dL Low 3.9 - 4.9 g/dL [facility] ALP [Catalytic activity/Vol] 219 U/L High 34 - 123 U/L [facility] ALT [Catalytic activity/Vol] 25 U/L 7 - 38 U/L [facility] Anion gap [Moles/Vol] 9 mmol/L 9 - 18 mmol/L [facility] AST [Catalytic activity/Vol] 35 U/L 13 - 35 U/L [facility] Bilirubin [Mass/Vol] 0.4 mg/dL 0.2 - 1 .3 mg/dL [facility] Calcium [Mass/Vol] 9.6 mg/dL 8.5 - 10. 2 mg/dL [facility] Chloride [Moles/Vol] 107 mmol/L High 97 - 10 5 mmol/L [facility] CO2 [Moles/Vol] 24 mmol/L 22 - 30 mmol/L [facility] Creatinine [Mass/Vol] 0.90 mg/dL 0.58 - 0.96 mg/dL [facility] Estimated Glomerular Filtration Rate 69 mL/min/1.73m >=60 mL/min/1.73m [facility] Glucose [Mass/Vol] 137 mg/dL High 74 - 99 mg/dL [facility] Potassium [Moles/Vol] 3.6 mmol/L Low 3.7 - 5.1 mmol/L [facility] Protein [Mass/Vol] 5.6 g/dL Low 6.3 - 8.0 g/dL [facility] Sodium [Moles/Vol] 140 mmol/L 136 - 144 mmol/L [facility] Urea nitrogen [Mass/Vol] 14 mg/dL 7 - 21 mg/dL [facility] CT CHEST WO IVCONon 03-11-[address] [facility] CBC W Auto Differential pane l (Bld)on 02-23-2023 Basophils (Bld) [#/Vol] 0.03 10*3/uL <0.11 k/uL [facility] Basophils/100 WBC (Bld) 0.7 % [facility] Differential cell count method Nom (Bld) Auto [facility] Eosinophils (Bld) [#/Vol] 0.29 10*3/uL <0.46 k/uL [facility] Eosinophils/100 WBC (Bld) 7.1 % [facility] Erythrocyte distribution width (RBC) [Ratio] 13.9 % 11.5 - 15.0 % [facility] Hematocrit (Bld) [Volume fraction] 40.1 % 36.0 - 46.0 % [facility] Hemoglobin (Bld) [Mass/Vol] 13.2 g/dL 11.5 - 15.5 g/dL [facility] Immature granulocytes (Bld) [#/Vol] <0.10 k/uL [facility] Immature granulocytes/100 WBC (Bld) 0.2 % [facility] Lymphocytes (Bld) [#/Vol] 1.09 10*3/uL 1.00 - 4.00 k/uL [facility] Lymphocytes/100 WBC (Bld) 26.8 % [facility] MCH (RBC) [Entitic mass] 35.2 pg High 26.0 - 34.[address] [facility] MCHC (RBC) [Mass/Vol] 32.9 g/dL 30.5 - 36.0 g/dL [facility] MCV (RBC) [Entitic vol] 106.9 fL High 80.0 - 100.[address] [facility] Monocytes (Bld) [#/Vol] 0.45 10*3/uL <0.87 k/uL [facility] Monocytes/100 WBC (Bld) 11.1 % [facility] Neutrophils (Bld) [#/Vol] 2.20 10*3/uL 1.45 - 7.50 k/uL [facility] Neutrophils/100 WBC (Bld) 54.1 % [facility] Nucleated RBC (Bld) [#/Vol] <0.01 k/uL [facility] Nucleated RBC/100 WBC (Bld) [Ratio] 0.0 /[address] [facility] Platelet mean volume (Bld) [Entitic vol] 9.6 fL 9.0 - 12.[address] [facility] Platelets (Bld) [#/Vol] 135 10*3/uL Low 150 - 400 k/uL [facility] RBC (Bld) [#/Vol] 3.75 10*6/uL Low 3.90 - 5.2 0 m/uL [facility] WBC (Bld) [#/Vol] 4.07 10*3/uL 3.70 - 11. 00 k/uL [facility] Comprehensive metabolic 2000 panelon 02-23-2023 Albumin [Mass/Vol] 3.8 g/dL Low 3.9 - 4.9 g/dL [facility] ALP [Catalytic activity/Vol] 206 U/L High 34 - 123 U/L [facility] ALT [Catalytic activity/Vol] 20 U/L 7 - 38 U/L [facility] Anion gap [Moles/Vol] 9 mmol/L 9 - 18 mmol/L [facility] AST [Catalytic activity/Vol] 33 U/L 13 - 35 U/L [facility] Bilirubin [Mass/Vol] 0.5 mg/dL 0.2 - 1 .3 mg/dL [facility] Calcium [Mass/Vol] 10.1 mg/dL 8.5 - 10. 2 mg/dL [facility] Chloride [Moles/Vol] 105 mmol/L 97 - 10 5 mmol/L [facility] CO2 [Moles/Vol] 28 mmol/L 22 - 30 mmol/L [facility] Creatinine [Mass/Vol] 0.92 mg/dL 0.58 - 0.96 mg/dL [facility] Estimated Glomerular Filtration Rate 68 mL/min/1.73m >=60 mL/min/1.73m [facility] Glucose [Mass/Vol] 104 mg/dL High 74 - 99 mg/dL [facility] Potassium [Moles/Vol] 3.8 mmol/L 3.7 - 5.1 mmol/L [facility] Protein [Mass/Vol] 6.1 g/dL Low 6.3 - 8.0 g/dL [facility] Sodium [Moles/Vol] 142 mmol/L 136 - 144 mmol/L [facility] Urea nitrogen [Mass/Vol] 14 mg/dL 7 - 21 mg/dL [facility] Absolute lymphocyte countOrd ered By: Gurvinder Dill on 02-16-2023 Lymphocytes Auto (Unsp spec) [#/Vol] 1.14 10*3/uL 0.83-4.51 [facility] Basophil percentageOrdered B y: Gurvinder Dill on 02-16-2023 Basophils/100 WBC (Bld) 0.6 % 0-1 [facility] Eosinophils/100 WBC (Bld) 5.2 % 0-5 [facility] Neutrophils (Bld) [#/Vol] 2.7 10*3/uL 2.0-7.7 [facility] Neutrophils/100 WBC (Bld) 58.7 % 47-70 [facility] WBC (Bld) [#/Vol] 4.7 10*3/uL 4.4-11.0 [facility] Chloride [Moles/Vol] 109 mmol/L 98-107 [facility] Glucose [Mass/Vol] 90 mg/dL 74-106 [facility] Potassium [Moles/Vol] 4.4 mmol/L 3.5-5.1 [facility] Sodium [Moles/Vol] 143 mmol/L 136-145 [facility] Blood erythrocytes count (nu mber/volume)Ordered By: Gurvinder Dill on 02-16-2023 RBC (Bld) [#/Vol] 3.53 10*6/uL 4.2-5.4 [facility] Blood hemoglobin measurement (mass/volume)Ordered By: Gurvinder Dill on 02-16-2023 Hemoglobin (Bld) [Mass/Vol] 12.7 g/dL 12.0-15.0 [facility] Blood lymphocytes/100 leukoc ytesOrdered By: Gurvnider Dill on 02-16-2023 Lymphocytes/100 WBC (Bld) 24.5 % 19-41 [facility] Blood monocytes/100 leukocyt esOrdered By: Gurvinder Dill on 02-16-2023 Monocytes/100 WBC (Bld) 10.8 % 0-10 [facility] Blood platelet mean volumeOr dered By: Gurvinder Dill on 02-16-2023 Platelet mean volume (Bld) [Entitic vol] 10.5 fL 6.2-12.0 [facility] Determination of erythrocyte mean corpuscular volume (MCV)Ordered By: Gurvinder Dill on 02-16-2023 MCV (RBC) [Entitic vol] 111.3 fL 81-99 [facility] Hematocrit Auto (Bld) [Volum e fraction]Ordered By: Gurvinder Dill on 02-16-2023 Hematocrit (Bld) [Volume fraction] 39.3 % 37-47 [facility] Laboratory - Chemistry and C hemistry - challengeOrdered By: [facility]23 CO2 [Moles/Vol] 31.0 mmol/L 21.0-32.0 [facility] Natriuretic peptide B (Bld) [Mass/Vol] 92.8 pg/mL 0-100 [facility] Urea nitrogen/Creatinine [Mass ratio] 13.1 mg/mg 10-20 [facility] Laboratory - Hematology and Cell countsOrdered By: [facility] on 02-16-2023 Erythrocyte distribution width (RBC) [Entitic vol] 59.1 fL 35.1-43.9 [facility] Erythrocyte distribution width (RBC) [Ratio] 14.3 % 11.6-14.6 [facility] Immature granulocytes/100 WBC (Bld) 0.200 % 0.0-0.9 [facility] Comment on above: IG% - Immature Granu locytes (promyelocytes, myelocytes and metamyelocytes) > 1% indicates that a LEFT SHIFT is Present. MCH (RBC) [Entitic mass] 36.0 pg 27.0-32.0 [facility] Nucleated RBC/100 WBC (Bld) [Ratio] 0 % 0-5 [facility] MCHC Auto (RBC) [Mass/Vol]Or dered By: Gurvinder Dill on 02-16-2023 MCHC (RBC) [Mass/Vol] 32.3 g/dL 32-36 [facility] No Panel InformationOrdered By: [facility] on 02-16-2023 D-Dimer Quantitative (PE/DVT) 0.77 FEU/ug/m 0.27-0.49 [facility] Comment on above: D-Dimer ELEVATED (>0 .49): Additional studies and clinicalassessments are indicated to conclude diagnosis of:Deep Vein Thrombosis (DVT) or Pulmonary Embolism (PE)CRITICAL VALUE VERIFIED. CALLED TO ELVA GRIMM02/16/23 Zuly Bai.RESULTS READ BACK BY SAME . Estimated Creatinine Clearance Calc 44.03 ml/min [facility] Estimated GFR (MDRD) Amer 78 mL/min >60 [facility] Comment on above: GFR Calc Estimated GFR (MDRD) Non-Af Amer 65 mL/min >60 [facility] Comment on above: Non- GFR Calc Troponin I High Sensitivity 9 pg/mL 3.0-54.0 [facility] Comment on above: Please Note: New Lizbeth t Units and Gender Specific Reference Ranges. For more information see Policy Stat Procedure Wright High Sensitivity Troponin (TNIH) and attachments. Platelets bldOrdered By: Cinthya blanton Fuentes on 02-16-2023 Platelets (Bld) [#/Vol] 115 10*3/uL 150-450 [facility] Serum or plasma calcium michelle urement (mass/volume)Ordered By: [facility] Fuentes on 02-16-2023 Calcium [Mass/Vol] 9.6 mg/dL 8.5-10.1 [facility] Serum or plasma creatinine m easurement (mass/volume)Ordered By: [facility] Fuentes on 02-16-2023 Creatinine [Mass/Vol] 0.91 mg/dL 0.55-1.02 [facility] Comment on above: The validity of the calculated GFR & GFRAA in patients over 70 years has not been determined. Clinical correlation is essential. Serum or plasma urea nitroge n measurement (mass/volume)Ordered By: [facility] Fuentes on 02-16-2023 Urea nitrogen [Mass/Vol] 12 mg/dL 7-18 [facility] Thin prep Papanicolaou smear with manual screeningOrdered By: [facility] Fuentes on 02-16-2023 Thin prep Papanicolaou smear with manual screening 3 5-15 [facility] CBC W Auto Differential pane l (Bld)on 02-02-2023 Basophils (Bld) [#/Vol] 0.03 10*3/uL <0.11 k/uL [facility] Basophils/100 WBC (Bld) 0.9 % [facility] Differential cell count method Nom (Bld) Auto [facility] Eosinophils (Bld) [#/Vol] 0.24 10*3/uL <0.46 k/uL [facility] Eosinophils/100 WBC (Bld) 7.2 % [facility] Erythrocyte distribution width (RBC) [Ratio] 15.3 % High 11.5 - 15.0 % [facility] Hematocrit (Bld) [Volume fraction] 35.7 % Low 36.0 - 46.0 % [facility] Hemoglobin (Bld) [Mass/Vol] 11.9 g/dL 11.5 - 15.5 g/dL [facility] Immature granulocytes (Bld) [#/Vol] <0.10 k/uL [facility] Immature granulocytes/100 WBC (Bld) 0.3 % [facility] Lymphocytes (Bld) [#/Vol] 1.18 10*3/uL 1.00 - 4.00 k/uL [facility] Lymphocytes/100 WBC (Bld) 35.4 % [facility] MCH (RBC) [Entitic mass] 36.1 pg High 26.0 - 34.[address] [facility] MCHC (RBC) [Mass/Vol] 33.3 g/dL 30.5 - 36.0 g/dL [facility] MCV (RBC) [Entitic vol] 108.2 fL High 80.0 - 100.[address] [facility] Monocytes (Bld) [#/Vol] 0.46 10*3/uL <0.87 k/uL [facility] Monocytes/100 WBC (Bld) 13.8 % [facility] Neutrophils (Bld) [#/Vol] 1.41 10*3/uL Low 1.45 - 7.50 k/uL [facility] Neutrophils/100 WBC (Bld) 42.4 % [facility] Nucleated RBC (Bld) [#/Vol] <0.01 k/uL [facility] Nucleated RBC/100 WBC (Bld) [Ratio] 0.0 /[address] [facility] Platelet mean volume (Bld) [Entitic vol] 9.4 fL 9.0 - 12.[address] [facility] Platelets (Bld) [#/Vol] 179 10*3/uL 150 - 400 k/uL [facility] RBC (Bld) [#/Vol] 3.30 10*6/uL Low 3.90 - 5.2 0 m/uL [facility] WBC (Bld) [#/Vol] 3.33 10*3/uL Low 3.70 - 11. 00 k/uL [facility] Comprehensive metabolic 2000 panelon 02-02-2023 Albumin [Mass/Vol] 3.7 g/dL Low 3.9 - 4.9 g/dL [facility] ALP [Catalytic activity/Vol] 196 U/L High 34 - 123 U/L [facility] ALT [Catalytic activity/Vol] 21 U/L 7 - 38 U/L [facility] Anion gap [Moles/Vol] 10 mmol/L 9 - 18 mmol/L [facility] AST [Catalytic activity/Vol] 37 U/L High 13 - 35 U/L [facility] Bilirubin [Mass/Vol] 0.3 mg/dL 0.2 - 1 .3 mg/dL [facility] Calcium [Mass/Vol] 9.6 mg/dL 8.5 - 10. 2 mg/dL [facility] Chloride [Moles/Vol] 109 mmol/L High 97 - 10 5 mmol/L [facility] CO2 [Moles/Vol] 23 mmol/L 22 - 30 mmol/L [facility] Creatinine [Mass/Vol] 0.97 mg/dL High 0.58 - 0.96 mg/dL [facility] Estimated Glomerular Filtration Rate 63 mL/min/1.73m >=60 mL/min/1.73m [facility] Glucose [Mass/Vol] 124 mg/dL High 74 - 99 mg/dL [facility] Potassium [Moles/Vol] 4.5 mmol/L 3.7 - 5.1 mmol/L [facility] Protein [Mass/Vol] 5.8 g/dL Low 6.3 - 8.0 g/dL [facility] Sodium [Moles/Vol] 142 mmol/L 136 - 144 mmol/L [facility] Urea nitrogen [Mass/Vol] 16 mg/dL 7 - 21 mg/dL [facility] No Panel Informationon 01-[address] [facility] CBC W Auto Differential pane l (Bld)on 01-12-2023 Basophils (Bld) [#/Vol] 0.03 10*3/uL <0.11 k/uL [facility] Basophils/100 WBC (Bld) 0.9 % [facility] Differential cell count method Nom (Bld) Auto [facility] Eosinophils (Bld) [#/Vol] 0.28 10*3/uL <0.46 k/uL [facility] Eosinophils/100 WBC (Bld) 8.3 % [facility] Erythrocyte distribution width (RBC) [Ratio] 15.5 % High 11.5 - 15.0 % [facility] Hematocrit (Bld) [Volume fraction] 35.6 % Low 36.0 - 46.0 % [facility] Hemoglobin (Bld) [Mass/Vol] 11.9 g/dL 11.5 - 15.5 g/dL [facility] Immature granulocytes (Bld) [#/Vol] <0.10 k/uL [facility] Immature granulocytes/100 WBC (Bld) 0.3 % [facility] Lymphocytes (Bld) [#/Vol] 1.14 10*3/uL 1.00 - 4.00 k/uL [facility] Lymphocytes/100 WBC (Bld) 33.7 % [facility] MCH (RBC) [Entitic mass] 36.4 pg High 26.0 - 34.[address] [facility] MCHC (RBC) [Mass/Vol] 33.4 g/dL 30.5 - 36.0 g/dL [facility] MCV (RBC) [Entitic vol] 108.9 fL High 80.0 - 100.[address] [facility] Monocytes (Bld) [#/Vol] 0.43 10*3/uL <0.87 k/uL [facility] Monocytes/100 WBC (Bld) 12.7 % [facility] Neutrophils (Bld) [#/Vol] 1.49 10*3/uL 1.45 - 7.50 k/uL [facility] Neutrophils/100 WBC (Bld) 44.1 % [facility] Nucleated RBC (Bld) [#/Vol] <0.01 k/uL [facility] Nucleated RBC/100 WBC (Bld) [Ratio] 0.0 /[address] [facility] Platelet mean volume (Bld) [Entitic vol] 9.5 fL 9.0 - 12.[address] [facility] Platelets (Bld) [#/Vol] 177 10*3/uL 150 - 400 k/uL [facility] RBC (Bld) [#/Vol] 3.27 10*6/uL Low 3.90 - 5.2 0 m/uL [facility] WBC (Bld) [#/Vol] 3.38 10*3/uL Low 3.70 - 11. 00 k/uL [facility] Comprehensive metabolic 2000 panelon 01-12-2023 Albumin [Mass/Vol] 3.5 g/dL Low 3.9 - 4.9 g/dL [facility] ALP [Catalytic activity/Vol] 178 U/L High 34 - 123 U/L [facility] ALT [Catalytic activity/Vol] 20 U/L 7 - 38 U/L [facility] Anion gap [Moles/Vol] 7 mmol/L Low 9 - 18 mmol/L [facility] AST [Catalytic activity/Vol] 34 U/L 13 - 35 U/L [facility] Bilirubin [Mass/Vol] 0.4 mg/dL 0.2 - 1 .3 mg/dL [facility] Calcium [Mass/Vol] 9.5 mg/dL 8.5 - 10. 2 mg/dL [facility] Chloride [Moles/Vol] 109 mmol/L High 97 - 10 5 mmol/L [facility] CO2 [Moles/Vol] 24 mmol/L 22 - 30 mmol/L [facility] Creatinine [Mass/Vol] 0.99 mg/dL High 0.58 - 0.96 mg/dL [facility] Estimated Glomerular Filtration Rate 62 mL/min/1.73m >=60 mL/min/1.73m [facility] Glucose [Mass/Vol] 119 mg/dL High 74 - 99 mg/dL [facility] Potassium [Moles/Vol] 4.3 mmol/L 3.7 - 5.1 mmol/L [facility] Protein [Mass/Vol] 5.9 g/dL Low 6.3 - 8.0 g/dL [facility] Sodium [Moles/Vol] 140 mmol/L 136 - 144 mmol/L [facility] Urea nitrogen [Mass/Vol] 14 mg/dL 7 - 21 mg/dL [facility] CBC W Auto Differential pane l (Bld)on 12-01-2022 Basophils (Bld) [#/Vol] 0.03 10*3/uL <0.11 k/uL [facility] Basophils/100 WBC (Bld) 0.7 % [facility] Differential cell count method Nom (Bld) Auto [facility] Eosinophils (Bld) [#/Vol] 0.28 10*3/uL <0.46 k/uL [facility] Eosinophils/100 WBC (Bld) 6.8 % [facility] Erythrocyte distribution width (RBC) [Ratio] 15.2 % High 11.5 - 15.0 % [facility] Hematocrit (Bld) [Volume fraction] 35.2 % Low 36.0 - 46.0 % [facility] Hemoglobin (Bld) [Mass/Vol] 11.9 g/dL 11.5 - 15.5 g/dL [facility] Immature granulocytes (Bld) [#/Vol] <0.10 k/uL [facility] Immature granulocytes/100 WBC (Bld) 0.0 % [facility] Lymphocytes (Bld) [#/Vol] 1.30 10*3/uL 1.00 - 4.00 k/uL [facility] Lymphocytes/100 WBC (Bld) 31.6 % [facility] MCH (RBC) [Entitic mass] 36.7 pg High 26.0 - 34.[address] [facility] MCHC (RBC) [Mass/Vol] 33.8 g/dL 30.5 - 36.0 g/dL [facility] MCV (RBC) [Entitic vol] 108.6 fL High 80.0 - 100.[address] [facility] Monocytes (Bld) [#/Vol] 0.43 10*3/uL <0.87 k/uL [facility] Monocytes/100 WBC (Bld) 10.4 % [facility] Neutrophils (Bld) [#/Vol] 2.08 10*3/uL 1.45 - 7.50 k/uL [facility] Neutrophils/100 WBC (Bld) 50.5 % [facility] Nucleated RBC (Bld) [#/Vol] <0.01 k/uL [facility] Nucleated RBC/100 WBC (Bld) [Ratio] 0.0 /[address] [facility] Platelet mean volume (Bld) [Entitic vol] 9.2 fL 9.0 - 12.[address] [facility] Platelets (Bld) [#/Vol] 147 10*3/uL Low 150 - 400 k/uL [facility] RBC (Bld) [#/Vol] 3.24 10*6/uL Low 3.90 - 5.2 0 m/uL [facility] WBC (Bld) [#/Vol] 4.12 10*3/uL 3.70 - 11. 00 k/uL [facility] Comprehensive metabolic 2000 panelon 12-01-2022 Albumin [Mass/Vol] 3.8 g/dL Low 3.9 - 4.9 g/dL [facility] ALP [Catalytic activity/Vol] 202 U/L High 34 - 123 U/L [facility] ALT [Catalytic activity/Vol] 20 U/L 7 - 38 U/L [facility] Anion gap [Moles/Vol] 7 mmol/L Low 9 - 18 mmol/L [facility] AST [Catalytic activity/Vol] 33 U/L 13 - 35 U/L [facility] Bilirubin [Mass/Vol] 0.3 mg/dL 0.2 - 1 .3 mg/dL [facility] Calcium [Mass/Vol] 9.8 mg/dL 8.5 - 10. 2 mg/dL [facility] Chloride [Moles/Vol] 107 mmol/L High 97 - 10 5 mmol/L [facility] CO2 [Moles/Vol] 27 mmol/L 22 - 30 mmol/L [facility] Creatinine [Mass/Vol] 1.02 mg/dL High 0.58 - 0.96 mg/dL [facility] Estimated Glomerular Filtration Rate 60 mL/min/1.73m >=60 mL/min/1.73m [facility] Glucose [Mass/Vol] 134 mg/dL High 74 - 99 mg/dL [facility] Potassium [Moles/Vol] 3.9 mmol/L 3.7 - 5.1 mmol/L [facility] Protein [Mass/Vol] 5.9 g/dL Low 6.3 - 8.0 g/dL [facility] Sodium [Moles/Vol] 141 mmol/L 136 - 144 mmol/L [facility] Urea nitrogen [Mass/Vol] 15 mg/dL 7 - 21 mg/dL [facility] CBC W Auto Differential pane l (Bld)on 11-10-2022 Basophils (Bld) [#/Vol] 0.03 10*3/uL <0.11 k/uL [facility] Basophils/100 WBC (Bld) 0.8 % [facility] Differential cell count method Nom (Bld) Auto [facility] Eosinophils (Bld) [#/Vol] 0.28 10*3/uL <0.46 k/uL [facility] Eosinophils/100 WBC (Bld) 7.6 % [facility] Erythrocyte distribution width (RBC) [Ratio] 15.4 % High 11.5 - 15.0 % [facility] Hematocrit (Bld) [Volume fraction] 36.8 % 36.0 - 46.0 % [facility] Hemoglobin (Bld) [Mass/Vol] 12.4 g/dL 11.5 - 15.5 g/dL [facility] Immature granulocytes (Bld) [#/Vol] <0.10 k/uL [facility] Immature granulocytes/100 WBC (Bld) 0.0 % [facility] Lymphocytes (Bld) [#/Vol] 1.17 10*3/uL 1.00 - 4.00 k/uL [facility] Lymphocytes/100 WBC (Bld) 31.9 % [facility] MCH (RBC) [Entitic mass] 36.5 pg High 26.0 - 34.[address] [facility] MCHC (RBC) [Mass/Vol] 33.7 g/dL 30.5 - 36.0 g/dL [facility] MCV (RBC) [Entitic vol] 108.2 fL High 80.0 - 100.[address] [facility] Monocytes (Bld) [#/Vol] 0.46 10*3/uL <0.87 k/uL [facility] Monocytes/100 WBC (Bld) 12.5 % [facility] Neutrophils (Bld) [#/Vol] 1.73 10*3/uL 1.45 - 7.50 k/uL [facility] Neutrophils/100 WBC (Bld) 47.2 % [facility] Nucleated RBC (Bld) [#/Vol] <0.01 k/uL [facility] Nucleated RBC/100 WBC (Bld) [Ratio] 0.0 /[address] [facility] Platelet mean volume (Bld) [Entitic vol] 9.5 fL 9.0 - 12.[address] [facility] Platelets (Bld) [#/Vol] 187 10*3/uL 150 - 400 k/uL [facility] RBC (Bld) [#/Vol] 3.40 10*6/uL Low 3.90 - 5.2 0 m/uL [facility] WBC (Bld) [#/Vol] 3.67 10*3/uL Low 3.70 - 11. 00 k/uL [facility] Comprehensive metabolic 2000 panelon 11-10-2022 Albumin [Mass/Vol] 3.8 g/dL Low 3.9 - 4.9 g/dL [facility] ALP [Catalytic activity/Vol] 183 U/L High 34 - 123 U/L [facility] ALT [Catalytic activity/Vol] 20 U/L 7 - 38 U/L [facility] Anion gap [Moles/Vol] 7 mmol/L Low 9 - 18 mmol/L [facility] AST [Catalytic activity/Vol] 33 U/L 13 - 35 U/L [facility] Bilirubin [Mass/Vol] 0.5 mg/dL 0.2 - 1 .3 mg/dL [facility] Calcium [Mass/Vol] 9.6 mg/dL 8.5 - 10. 2 mg/dL [facility] Chloride [Moles/Vol] 106 mmol/L High 97 - 10 5 mmol/L [facility] CO2 [Moles/Vol] 29 mmol/L 22 - 30 mmol/L [facility] Creatinine [Mass/Vol] 1.01 mg/dL High 0.58 - 0.96 mg/dL [facility] Estimated Glomerular Filtration Rate 60 mL/min/1.73m >=60 mL/min/1.73m [facility] Glucose [Mass/Vol] 114 mg/dL High 74 - 99 mg/dL [facility] Potassium [Moles/Vol] 4.4 mmol/L 3.7 - 5.1 mmol/L [facility] Protein [Mass/Vol] 6.0 g/dL Low 6.3 - 8.0 g/dL [facility] Sodium [Moles/Vol] 142 mmol/L 136 - 144 mmol/L [facility] Urea nitrogen [Mass/Vol] 12 mg/dL 7 - 21 mg/dL [facility] No Panel Informationon 11-[address] [facility] CBC W Auto Differential pane l (Bld)on 10-18-2022 Basophils (Bld) [#/Vol] <0.11 k/uL [facility] Basophils/100 WBC (Bld) 0.5 % [facility] Differential cell count method Nom (Bld) Auto [facility] Eosinophils (Bld) [#/Vol] 0.25 10*3/uL <0.46 k/uL [facility] Eosinophils/100 WBC (Bld) 6.5 % [facility] Erythrocyte distribution width (RBC) [Ratio] 15.2 % High 11.5 - 15.0 % [facility] Hematocrit (Bld) [Volume fraction] 36.4 % 36.0 - 46.0 % [facility] Hemoglobin (Bld) [Mass/Vol] 12.6 g/dL 11.5 - 15.5 g/dL [facility] Immature granulocytes (Bld) [#/Vol] <0.10 k/uL [facility] Immature granulocytes/100 WBC (Bld) 0.3 % [facility] Lymphocytes (Bld) [#/Vol] 1.15 10*3/uL 1.00 - 4.00 k/uL [facility] Lymphocytes/100 WBC (Bld) 29.8 % [facility] MCH (RBC) [Entitic mass] 36.8 pg High 26.0 - 34.[address] [facility] MCHC (RBC) [Mass/Vol] 34.6 g/dL 30.5 - 36.0 g/dL [facility] MCV (RBC) [Entitic vol] 106.4 fL High 80.0 - 100.[address] [facility] Monocytes (Bld) [#/Vol] 0.41 10*3/uL <0.87 k/uL [facility] Monocytes/100 WBC (Bld) 10.6 % [facility] Neutrophils (Bld) [#/Vol] 2.02 10*3/uL 1.45 - 7.50 k/uL [facility] Neutrophils/100 WBC (Bld) 52.3 % [facility] Nucleated RBC (Bld) [#/Vol] <0.01 k/uL [facility] Nucleated RBC/100 WBC (Bld) [Ratio] 0.0 /[address] [facility] Platelet mean volume (Bld) [Entitic vol] 9.3 fL 9.0 - 12.[address] [facility] Platelets (Bld) [#/Vol] 173 10*3/uL 150 - 400 k/uL [facility] RBC (Bld) [#/Vol] 3.42 10*6/uL Low 3.90 - 5.2 0 m/uL [facility] WBC (Bld) [#/Vol] 3.86 10*3/uL 3.70 - 11. 00 k/uL [facility] Comprehensive metabolic 2000 panelon 10-18-2022 Albumin [Mass/Vol] 3.9 g/dL 3.9 - 4.9 g/dL [facility] ALP [Catalytic activity/Vol] 204 U/L High 34 - 123 U/L [facility] ALT [Catalytic activity/Vol] 25 U/L 7 - 38 U/L [facility] Anion gap [Moles/Vol] 7 mmol/L Low 9 - 18 mmol/L [facility] AST [Catalytic activity/Vol] 39 U/L High 13 - 35 U/L [facility] Bilirubin [Mass/Vol] 0.5 mg/dL 0.2 - 1 .3 mg/dL [facility] Calcium [Mass/Vol] 9.8 mg/dL 8.5 - 10. 2 mg/dL [facility] Chloride [Moles/Vol] 105 mmol/L 97 - 10 5 mmol/L [facility] CO2 [Moles/Vol] 27 mmol/L 22 - 30 mmol/L [facility] Creatinine [Mass/Vol] 0.90 mg/dL 0.58 - 0.96 mg/dL [facility] Estimated Glomerular Filtration Rate 69 mL/min/1.73m >=60 mL/min/1.73m [facility] Glucose [Mass/Vol] 99 mg/dL 74 - 99 mg/dL [facility] Potassium [Moles/Vol] 4.0 mmol/L 3.7 - 5.1 mmol/L [facility] Protein [Mass/Vol] 6.1 g/dL Low 6.3 - 8.0 g/dL [facility] Sodium [Moles/Vol] 139 mmol/L 136 - 144 mmol/L [facility] Urea nitrogen [Mass/Vol] 13 mg/dL 7 - 21 mg/dL [facility] No Panel Informationon 10-[address] [facility] CBC W Auto Differential pane l (Bld)on 09-30-2022 Basophils (Bld) [#/Vol] 0.03 10*3/uL <0.11 k/uL [facility] Basophils/100 WBC (Bld) 0.9 % [facility] Differential cell count method Nom (Bld) Auto [facility] Eosinophils (Bld) [#/Vol] 0.22 10*3/uL <0.46 k/uL [facility] Eosinophils/100 WBC (Bld) 6.7 % [facility] Erythrocyte distribution width (RBC) [Ratio] 15.6 % High 11.5 - 15.0 % [facility] Hematocrit (Bld) [Volume fraction] 36.9 % 36.0 - 46.0 % [facility] Hemoglobin (Bld) [Mass/Vol] 12.5 g/dL 11.5 - 15.5 g/dL [facility] Immature granulocytes (Bld) [#/Vol] <0.10 k/uL [facility] Immature granulocytes/100 WBC (Bld) 0.0 % [facility] Lymphocytes (Bld) [#/Vol] 0.94 10*3/uL Low 1.00 - 4.00 k/uL [facility] Lymphocytes/100 WBC (Bld) 28.7 % [facility] MCH (RBC) [Entitic mass] 36.5 pg High 26.0 - 34.[address] [facility] MCHC (RBC) [Mass/Vol] 33.9 g/dL 30.5 - 36.0 g/dL [facility] MCV (RBC) [Entitic vol] 107.9 fL High 80.0 - 100.[address] [facility] Monocytes (Bld) [#/Vol] 0.47 10*3/uL <0.87 k/uL [facility] Monocytes/100 WBC (Bld) 14.4 % [facility] Neutrophils (Bld) [#/Vol] 1.61 10*3/uL 1.45 - 7.50 k/uL [facility] Neutrophils/100 WBC (Bld) 49.3 % [facility] Nucleated RBC (Bld) [#/Vol] <0.01 k/uL [facility] Nucleated RBC/100 WBC (Bld) [Ratio] 0.0 /[address] [facility] Platelet mean volume (Bld) [Entitic vol] 9.6 fL 9.0 - 12.[address] [facility] Platelets (Bld) [#/Vol] 200 10*3/uL 150 - 400 k/uL [facility] RBC (Bld) [#/Vol] 3.42 10*6/uL Low 3.90 - 5.2 0 m/uL [facility] WBC (Bld) [#/Vol] 3.27 10*3/uL Low 3.70 - 11. 00 k/uL [facility] Comprehensive metabolic 2000 panelon 09-30-2022 Albumin [Mass/Vol] 3.9 g/dL 3.9 - 4.9 g/dL [facility] ALP [Catalytic activity/Vol] 185 U/L High 34 - 123 U/L [facility] ALT [Catalytic activity/Vol] 23 U/L 7 - 38 U/L [facility] Anion gap [Moles/Vol] 7 mmol/L Low 9 - 18 mmol/L [facility] AST [Catalytic activity/Vol] 40 U/L High 13 - 35 U/L [facility] Bilirubin [Mass/Vol] 0.5 mg/dL 0.2 - 1 .3 mg/dL [facility] Calcium [Mass/Vol] 9.4 mg/dL 8.5 - 10. 2 mg/dL [facility] Chloride [Moles/Vol] 106 mmol/L High 97 - 10 5 mmol/L [facility] CO2 [Moles/Vol] 27 mmol/L 22 - 30 mmol/L [facility] Creatinine [Mass/Vol] 1.02 mg/dL High 0.58 - 0.96 mg/dL [facility] Estimated Glomerular Filtration Rate 60 mL/min/1.73m >=60 mL/min/1.73m [facility] Glucose [Mass/Vol] 110 mg/dL High 74 - 99 mg/dL [facility] Potassium [Moles/Vol] 4.5 mmol/L 3.7 - 5.1 mmol/L [facility] Protein [Mass/Vol] 6.0 g/dL Low 6.3 - 8.0 g/dL [facility] Sodium [Moles/Vol] 140 mmol/L 136 - 144 mmol/L [facility] Urea nitrogen [Mass/Vol] 9 mg/dL 7 - 21 mg/dL [facility] MAXIM DIAG W OMI CRISELDAon 09-[address] [facility] CBC W Auto Differential pane l (Bld)on 09-08-2022 Basophils (Bld) [#/Vol] 0.04 10*3/uL <0.11 k/uL [facility] Basophils/100 WBC (Bld) 1.0 % [facility] Differential cell count method Nom (Bld) Auto [facility] Eosinophils (Bld) [#/Vol] 0.28 10*3/uL <0.46 k/uL [facility] Eosinophils/100 WBC (Bld) 6.7 % [facility] Erythrocyte distribution width (RBC) [Ratio] 15.5 % High 11.5 - 15.0 % [facility] Hematocrit (Bld) [Volume fraction] 36.4 % 36.0 - 46.0 % [facility] Hemoglobin (Bld) [Mass/Vol] 12.2 g/dL 11.5 - 15.5 g/dL [facility] Immature granulocytes (Bld) [#/Vol] <0.10 k/uL [facility] Immature granulocytes/100 WBC (Bld) 0.2 % [facility] Lymphocytes (Bld) [#/Vol] 1.24 10*3/uL 1.00 - 4.00 k/uL [facility] Lymphocytes/100 WBC (Bld) 29.7 % [facility] MCH (RBC) [Entitic mass] 36.1 pg High 26.0 - 34.[address] [facility] MCHC (RBC) [Mass/Vol] 33.5 g/dL 30.5 - 36.0 g/dL [facility] MCV (RBC) [Entitic vol] 107.7 fL High 80.0 - 100.[address] [facility] Monocytes (Bld) [#/Vol] 0.54 10*3/uL <0.87 k/uL [facility] Monocytes/100 WBC (Bld) 12.9 % [facility] Neutrophils (Bld) [#/Vol] 2.07 10*3/uL 1.45 - 7.50 k/uL [facility] Neutrophils/100 WBC (Bld) 49.5 % [facility] Nucleated RBC (Bld) [#/Vol] <0.01 k/uL [facility] Nucleated RBC/100 WBC (Bld) [Ratio] 0.0 /[address] [facility] Platelet mean volume (Bld) [Entitic vol] 9.9 fL 9.0 - 12.[address] [facility] Platelets (Bld) [#/Vol] 204 10*3/uL 150 - 400 k/uL [facility] RBC (Bld) [#/Vol] 3.38 10*6/uL Low 3.90 - 5.2 0 m/uL [facility] WBC (Bld) [#/Vol] 4.18 10*3/uL 3.70 - 11. 00 k/uL [facility] Comprehensive metabolic 2000 panelon 09-08-2022 Albumin [Mass/Vol] 3.8 g/dL Low 3.9 - 4.9 g/dL [facility] ALP [Catalytic activity/Vol] 176 U/L High 34 - 123 U/L [facility] ALT [Catalytic activity/Vol] 19 U/L 7 - 38 U/L [facility] Anion gap [Moles/Vol] 7 mmol/L Low 9 - 18 mmol/L [facility] AST [Catalytic activity/Vol] 33 U/L 13 - 35 U/L [facility] Bilirubin [Mass/Vol] 0.4 mg/dL 0.2 - 1 .3 mg/dL [facility] Calcium [Mass/Vol] 9.6 mg/dL 8.5 - 10. 2 mg/dL [facility] Chloride [Moles/Vol] 105 mmol/L 97 - 10 5 mmol/L [facility] CO2 [Moles/Vol] 26 mmol/L 22 - 30 mmol/L [facility] Creatinine [Mass/Vol] 0.87 mg/dL 0.58 - 0.96 mg/dL [facility] Estimated Glomerular Filtration Rate 73 mL/min/1.73m >=60 mL/min/1.73m [facility] Glucose [Mass/Vol] 106 mg/dL High 74 - 99 mg/dL [facility] Potassium [Moles/Vol] 4.1 mmol/L 3.7 - 5.1 mmol/L [facility] Protein [Mass/Vol] 5.8 g/dL Low 6.3 - 8.0 g/dL [facility] Sodium [Moles/Vol] 138 mmol/L 136 - 144 mmol/L [facility] Urea nitrogen [Mass/Vol] 11 mg/dL 7 - 21 mg/dL [facility] MAXIM SCREENING W TOMOon 08-[address] [facility] No Panel Informationon 07-[address] [facility] CBC W Auto Differential pane l (Bld)on 07-06-2022 Basophils (Bld) [#/Vol] 0.03 10*3/uL <0.11 k/uL [facility] Basophils/100 WBC (Bld) 0.7 % [facility] Differential cell count method Nom (Bld) Auto [facility] Eosinophils (Bld) [#/Vol] 0.24 10*3/uL <0.46 k/uL [facility] Eosinophils/100 WBC (Bld) 5.5 % [facility] Erythrocyte distribution width (RBC) [Ratio] 15.7 % High 11.5 - 15.0 % [facility] Hematocrit (Bld) [Volume fraction] 36.3 % 36.0 - 46.0 % [facility] Hemoglobin (Bld) [Mass/Vol] 12.3 g/dL 11.5 - 15.5 g/dL [facility] Immature granulocytes (Bld) [#/Vol] <0.10 k/uL [facility] Immature granulocytes/100 WBC (Bld) 0.2 % [facility] Lymphocytes (Bld) [#/Vol] 1.55 10*3/uL 1.00 - 4.00 k/uL [facility] Lymphocytes/100 WBC (Bld) 35.3 % [facility] MCH (RBC) [Entitic mass] 35.4 pg High 26.0 - 34.[address] [facility] MCHC (RBC) [Mass/Vol] 33.9 g/dL 30.5 - 36.0 g/dL [facility] MCV (RBC) [Entitic vol] 104.6 fL High 80.0 - 100.[address] [facility] Monocytes (Bld) [#/Vol] 0.45 10*3/uL <0.87 k/uL [facility] Monocytes/100 WBC (Bld) 10.3 % [facility] Neutrophils (Bld) [#/Vol] 2.11 10*3/uL 1.45 - 7.50 k/uL [facility] Neutrophils/100 WBC (Bld) 48.0 % [facility] Nucleated RBC (Bld) [#/Vol] <0.01 k/uL [facility] Nucleated RBC/100 WBC (Bld) [Ratio] 0.0 /[address] [facility] Platelet mean volume (Bld) [Entitic vol] 9.4 fL 9.0 - 12.[address] [facility] Platelets (Bld) [#/Vol] 204 10*3/uL 150 - 400 k/uL [facility] RBC (Bld) [#/Vol] 3.47 10*6/uL Low 3.90 - 5.2 0 m/uL [facility] WBC (Bld) [#/Vol] 4.39 10*3/uL 3.70 - 11. 00 k/uL [facility] Comprehensive metabolic 2000 panelon 07-06-2022 Albumin [Mass/Vol] 3.7 g/dL Low 3.9 - 4.9 g/dL [facility] ALP [Catalytic activity/Vol] 185 U/L High 34 - 123 U/L [facility] ALT [Catalytic activity/Vol] 24 U/L 7 - 38 U/L [facility] Anion gap [Moles/Vol] 10 mmol/L 9 - 18 mmol/L [facility] AST [Catalytic activity/Vol] 38 U/L High 13 - 35 U/L [facility] Bilirubin [Mass/Vol] 0.4 mg/dL 0.2 - 1 .3 mg/dL [facility] Calcium [Mass/Vol] 9.3 mg/dL 8.5 - 10. 2 mg/dL [facility] Chloride [Moles/Vol] 104 mmol/L 97 - 10 5 mmol/L [facility] CO2 [Moles/Vol] 29 mmol/L 22 - 30 mmol/L [facility] Creatinine [Mass/Vol] 0.91 mg/dL 0.58 - 0.96 mg/dL [facility] Estimated Glomerular Filtration Rate 69 mL/min/1.73m >=60 mL/min/1.73m [facility] Glucose [Mass/Vol] 142 mg/dL High 74 - 99 mg/dL [facility] Potassium [Moles/Vol] 3.9 mmol/L 3.7 - 5.1 mmol/L [facility] Protein [Mass/Vol] 5.9 g/dL Low 6.3 - 8.0 g/dL [facility] Sodium [Moles/Vol] 143 mmol/L 136 - 144 mmol/L [facility] Urea nitrogen [Mass/Vol] 11 mg/dL 7 - 21 mg/dL [facility] CBC W Auto Differential pane l (Bld)on 06-15-2022 Basophils (Bld) [#/Vol] 0.03 10*3/uL <0.11 k/uL [facility] Basophils/100 WBC (Bld) 0.6 % [facility] Differential cell count method Nom (Bld) Auto [facility] Eosinophils (Bld) [#/Vol] 0.28 10*3/uL <0.46 k/uL [facility] Eosinophils/100 WBC (Bld) 5.3 % [facility] Erythrocyte distribution width (RBC) [Ratio] 15.1 % High 11.5 - 15.0 % [facility] Hematocrit (Bld) [Volume fraction] 37.3 % 36.0 - 46.0 % [facility] Hemoglobin (Bld) [Mass/Vol] 12.7 g/dL 11.5 - 15.5 g/dL [facility] Immature granulocytes (Bld) [#/Vol] <0.10 k/uL [facility] Immature granulocytes/100 WBC (Bld) 0.2 % [facility] Lymphocytes (Bld) [#/Vol] 1.34 10*3/uL 1.00 - 4.00 k/uL [facility] Lymphocytes/100 WBC (Bld) 25.4 % [facility] MCH (RBC) [Entitic mass] 35.8 pg High 26.0 - 34.[address] [facility] MCHC (RBC) [Mass/Vol] 34.0 g/dL 30.5 - 36.0 g/dL [facility] MCV (RBC) [Entitic vol] 105.1 fL High 80.0 - 100.[address] [facility] Monocytes (Bld) [#/Vol] 0.51 10*3/uL <0.87 k/uL [facility] Monocytes/100 WBC (Bld) 9.7 % [facility] Neutrophils (Bld) [#/Vol] 3.10 10*3/uL 1.45 - 7.50 k/uL [facility] Neutrophils/100 WBC (Bld) 58.8 % [facility] Nucleated RBC (Bld) [#/Vol] <0.01 k/uL [facility] Nucleated RBC/100 WBC (Bld) [Ratio] 0.0 /[address] [facility] Platelet mean volume (Bld) [Entitic vol] 9.7 fL 9.0 - 12.[address] [facility] Platelets (Bld) [#/Vol] 204 10*3/uL 150 - 400 k/uL [facility] RBC (Bld) [#/Vol] 3.55 10*6/uL Low 3.90 - 5.2 0 m/uL [facility] WBC (Bld) [#/Vol] 5.27 10*3/uL 3.70 - 11. 00 k/uL [facility] Comprehensive metabolic 2000 panelon 06-15-2022 Albumin [Mass/Vol] 3.8 g/dL Low 3.9 - 4.9 g/dL [facility] ALP [Catalytic activity/Vol] 192 U/L High 34 - 123 U/L [facility] ALT [Catalytic activity/Vol] 20 U/L 7 - 38 U/L [facility] Anion gap [Moles/Vol] 8 mmol/L Low 9 - 18 mmol/L [facility] AST [Catalytic activity/Vol] 33 U/L 13 - 35 U/L [facility] Bilirubin [Mass/Vol] 0.3 mg/dL 0.2 - 1 .3 mg/dL [facility] Calcium [Mass/Vol] 10.0 mg/dL 8.5 - 10. 2 mg/dL [facility] Chloride [Moles/Vol] 106 mmol/L High 97 - 10 5 mmol/L [facility] CO2 [Moles/Vol] 27 mmol/L 22 - 30 mmol/L [facility] Creatinine [Mass/Vol] 0.99 mg/dL High 0.58 - 0.96 mg/dL [facility] Estimated Glomerular Filtration Rate 62 mL/min/1.73m >=60 mL/min/1.73m [facility] Glucose [Mass/Vol] 118 mg/dL High 74 - 99 mg/dL [facility] Potassium [Moles/Vol] 4.1 mmol/L 3.7 - 5.1 mmol/L [facility] Protein [Mass/Vol] 6.0 g/dL Low 6.3 - 8.0 g/dL [facility] Sodium [Moles/Vol] 141 mmol/L 136 - 144 mmol/L [facility] Urea nitrogen [Mass/Vol] 15 mg/dL 7 - 21 mg/dL [facility] CBC W Auto Differential pane l (Bld)on 05-25-2022 Basophils (Bld) [#/Vol] 0.03 10*3/uL <0.11 k/uL [facility] Basophils/100 WBC (Bld) 0.6 % [facility] Differential cell count method Nom (Bld) Auto [facility] Eosinophils (Bld) [#/Vol] 0.24 10*3/uL <0.46 k/uL [facility] Eosinophils/100 WBC (Bld) 5.1 % [facility] Erythrocyte distribution width (RBC) [Ratio] 14.9 % 11.5 - 15.0 % [facility] Hematocrit (Bld) [Volume fraction] 35.2 % Low 36.0 - 46.0 % [facility] Hemoglobin (Bld) [Mass/Vol] 12.0 g/dL 11.5 - 15.5 g/dL [facility] Immature granulocytes (Bld) [#/Vol] <0.10 k/uL [facility] Immature granulocytes/100 WBC (Bld) 0.2 % [facility] Lymphocytes (Bld) [#/Vol] 1.32 10*3/uL 1.00 - 4.00 k/uL [facility] Lymphocytes/100 WBC (Bld) 28.0 % [facility] MCH (RBC) [Entitic mass] 35.6 pg High 26.0 - 34.[address] [facility] MCHC (RBC) [Mass/Vol] 34.1 g/dL 30.5 - 36.0 g/dL [facility] MCV (RBC) [Entitic vol] 104.5 fL High 80.0 - 100.[address] [facility] Monocytes (Bld) [#/Vol] 0.53 10*3/uL <0.87 k/uL [facility] Monocytes/100 WBC (Bld) 11.2 % [facility] Neutrophils (Bld) [#/Vol] 2.59 10*3/uL 1.45 - 7.50 k/uL [facility] Neutrophils/100 WBC (Bld) 54.9 % [facility] Nucleated RBC (Bld) [#/Vol] <0.01 k/uL [facility] Nucleated RBC/100 WBC (Bld) [Ratio] 0.0 /[address] [facility] Platelet mean volume (Bld) [Entitic vol] 9.5 fL 9.0 - 12.[address] [facility] [facility] [facility] Platelets (Bld) [#/Vol] 178 10*3/uL 150 - 400 k/uL [facility] RBC (Bld) [#/Vol] 3.37 10*6/uL Low 3.90 - 5.2 0 m/uL [facility] WBC (Bld) [#/Vol] 4.72 10*3/uL 3.70 - 11. 00 k/uL [facility] Comprehensive metabolic 2000 panelon 05-25-2022 Albumin [Mass/Vol] 3.8 g/dL Low 3.9 - 4.9 g/dL [facility] ALP [Catalytic activity/Vol] 166 U/L High 34 - 123 U/L [facility] ALT [Catalytic activity/Vol] 21 U/L 7 - 38 U/L [facility] Anion gap [Moles/Vol] 6 mmol/L Low 9 - 18 mmol/L [facility] AST [Catalytic activity/Vol] 33 U/L 13 - 35 U/L [facility] Bilirubin [Mass/Vol] 0.3 mg/dL 0.2 - 1 .3 mg/dL [facility] Calcium [Mass/Vol] 9.5 mg/dL 8.5 - 10. 2 mg/dL [facility] Chloride [Moles/Vol] 107 mmol/L High 97 - 10 5 mmol/L [facility] CO2 [Moles/Vol] 29 mmol/L 22 - 30 mmol/L [facility] Creatinine [Mass/Vol] 0.93 mg/dL 0.58 - 0.96 mg/dL [facility] Estimated Glomerular Filtration Rate 67 mL/min/1.73m >=60 mL/min/1.73m [facility] Glucose [Mass/Vol] 116 mg/dL High 74 - 99 mg/dL [facility] Potassium [Moles/Vol] 3.6 mmol/L Low 3.7 - 5.1 mmol/L [facility] Protein [Mass/Vol] 5.7 g/dL Low 6.3 - 8.0 g/dL [facility] Sodium [Moles/Vol] 142 mmol/L 136 - 144 mmol/L [facility] Urea nitrogen [Mass/Vol] 16 mg/dL 7 - 21 mg/dL [facility] CBC W Auto Differential pane l (Bld)on 05-06-2022 Basophils (Bld) [#/Vol] 0.04 10*3/uL <0.11 k/uL [facility] Basophils/100 WBC (Bld) 0.9 % [facility] Differential cell count method Nom (Bld) Auto [facility] Eosinophils (Bld) [#/Vol] 0.25 10*3/uL <0.46 k/uL [facility] Eosinophils/100 WBC (Bld) 5.6 % [facility] Erythrocyte distribution width (RBC) [Ratio] 14.8 % 11.5 - 15.0 % [facility] Hematocrit (Bld) [Volume fraction] 37.7 % 36.0 - 46.0 % [facility] Hemoglobin (Bld) [Mass/Vol] 13.2 g/dL 11.5 - 15.5 g/dL [facility] Immature granulocytes (Bld) [#/Vol] <0.10 k/uL [facility] Immature granulocytes/100 WBC (Bld) 0.4 % [facility] Lymphocytes (Bld) [#/Vol] 1.33 10*3/uL 1.00 - 4.00 k/uL [facility] Lymphocytes/100 WBC (Bld) 29.6 % [facility] MCH (RBC) [Entitic mass] 36.9 pg High 26.0 - 34.[address] [facility] MCHC (RBC) [Mass/Vol] 35.0 g/dL 30.5 - 36.0 g/dL [facility] MCV (RBC) [Entitic vol] 105.3 fL High 80.0 - 100.[address] [facility] Monocytes (Bld) [#/Vol] 0.43 10*3/uL <0.87 k/uL [facility] Monocytes/100 WBC (Bld) 9.6 % [facility] Neutrophils (Bld) [#/Vol] 2.43 10*3/uL 1.45 - 7.50 k/uL [facility] Neutrophils/100 WBC (Bld) 53.9 % [facility] Nucleated RBC (Bld) [#/Vol] <0.01 k/uL [facility] Nucleated RBC/100 WBC (Bld) [Ratio] 0.0 /[address] [facility] Platelet mean volume (Bld) [Entitic vol] 9.2 fL 9.0 - 12.[address] [facility] Platelets (Bld) [#/Vol] 221 10*3/uL 150 - 400 k/uL [facility] RBC (Bld) [#/Vol] 3.58 10*6/uL Low 3.90 - 5.2 0 m/uL [facility] WBC (Bld) [#/Vol] 4.50 10*3/uL 3.70 - 11. 00 k/uL [facility] Comprehensive metabolic 2000 panelon 05-06-2022 Albumin [Mass/Vol] 3.9 g/dL 3.9 - 4.9 g/dL [facility] ALP [Catalytic activity/Vol] 183 U/L High 34 - 123 U/L [facility] ALT [Catalytic activity/Vol] 18 U/L 7 - 38 U/L [facility] Anion gap [Moles/Vol] 6 mmol/L Low 9 - 18 mmol/L [facility] AST [Catalytic activity/Vol] 33 U/L 13 - 35 U/L [facility] Bilirubin [Mass/Vol] 0.4 mg/dL 0.2 - 1 .3 mg/dL [facility] Calcium [Mass/Vol] 9.3 mg/dL 8.5 - 10. 2 mg/dL [facility] Chloride [Moles/Vol] 106 mmol/L High 97 - 10 5 mmol/L [facility] CO2 [Moles/Vol] 28 mmol/L 22 - 30 mmol/L [facility] Creatinine [Mass/Vol] 0.87 mg/dL 0.58 - 0.96 mg/dL [facility] Estimated Glomerular Filtration Rate 73 mL/min/1.73m >=60 mL/min/1.73m [facility] Glucose [Mass/Vol] 112 mg/dL High 74 - 99 mg/dL [facility] Potassium [Moles/Vol] 3.6 mmol/L Low 3.7 - 5.1 mmol/L [facility] Protein [Mass/Vol] 6.0 g/dL Low 6.3 - 8.0 g/dL [facility] Sodium [Moles/Vol] 140 mmol/L 136 - 144 mmol/L [facility] Urea nitrogen [Mass/Vol] 14 mg/dL 7 - 21 mg/dL [facility] No Panel Informationon 04-[address] [facility] CBC W Auto Differential pane l (Bld)on 04-14-2022 Basophils (Bld) [#/Vol] 0.05 10*3/uL <0.11 k/uL [facility] Basophils/100 WBC (Bld) 1.1 % [facility] Differential cell count method Nom (Bld) Auto [facility] Eosinophils (Bld) [#/Vol] 0.25 10*3/uL <0.46 k/uL [facility] Eosinophils/100 WBC (Bld) 5.4 % [facility] Erythrocyte distribution width (RBC) [Ratio] 14.8 % 11.5 - 15.0 % [facility] Hematocrit (Bld) [Volume fraction] 37.0 % 36.0 - 46.0 % [facility] Hemoglobin (Bld) [Mass/Vol] 12.3 g/dL 11.5 - 15.5 g/dL [facility] Immature granulocytes (Bld) [#/Vol] <0.10 k/uL [facility] Immature granulocytes/100 WBC (Bld) 0.2 % [facility] Lymphocytes (Bld) [#/Vol] 1.47 10*3/uL 1.00 - 4.00 k/uL [facility] Lymphocytes/100 WBC (Bld) 31.7 % [facility] MCH (RBC) [Entitic mass] 35.4 pg High 26.0 - 34.[address] [facility] MCHC (RBC) [Mass/Vol] 33.2 g/dL 30.5 - 36.0 g/dL [facility] MCV (RBC) [Entitic vol] 106.6 fL High 80.0 - 100.[address] [facility] Monocytes (Bld) [#/Vol] 0.52 10*3/uL <0.87 k/uL [facility] Monocytes/100 WBC (Bld) 11.2 % [facility] Neutrophils (Bld) [#/Vol] 2.33 10*3/uL 1.45 - 7.50 k/uL [facility] Neutrophils/100 WBC (Bld) 50.4 % [facility] Nucleated RBC (Bld) [#/Vol] <0.01 k/uL [facility] Nucleated RBC/100 WBC (Bld) [Ratio] 0.0 /[address] [facility] Platelet mean volume (Bld) [Entitic vol] 9.7 fL 9.0 - 12.[address] [facility] Platelets (Bld) [#/Vol] 172 10*3/uL 150 - 400 k/uL [facility] RBC (Bld) [#/Vol] 3.47 10*6/uL Low 3.90 - 5.2 0 m/uL [facility] WBC (Bld) [#/Vol] 4.63 10*3/uL 3.70 - 11. 00 k/uL [facility] Comprehensive metabolic 2000 panelon 04-14-2022 Albumin [Mass/Vol] 3.7 g/dL Low 3.9 - 4.9 g/dL [facility] ALP [Catalytic activity/Vol] 168 U/L High 34 - 123 U/L [facility] ALT [Catalytic activity/Vol] 18 U/L 7 - 38 U/L [facility] Anion gap [Moles/Vol] 8 mmol/L Low 9 - 18 mmol/L [facility] AST [Catalytic activity/Vol] 34 U/L 13 - 35 U/L [facility] Bilirubin [Mass/Vol] 0.3 mg/dL 0.2 - 1 .3 mg/dL [facility] Calcium [Mass/Vol] 9.1 mg/dL 8.5 - 10. 2 mg/dL [facility] Chloride [Moles/Vol] 107 mmol/L High 97 - 10 5 mmol/L [facility] CO2 [Moles/Vol] 27 mmol/L 22 - 30 mmol/L [facility] Creatinine [Mass/Vol] 0.88 mg/dL 0.58 - 0.96 mg/dL [facility] Estimated Glomerular Filtration Rate 72 mL/min/1.73m >=60 mL/min/1.73m [facility] Glucose [Mass/Vol] 99 mg/dL 74 - 99 mg/dL [facility] Potassium [Moles/Vol] 3.7 mmol/L 3.7 - 5.1 mmol/L [facility] Protein [Mass/Vol] 5.8 g/dL Low 6.3 - 8.0 g/dL [facility] Sodium [Moles/Vol] 142 mmol/L 136 - 144 mmol/L [facility] Urea nitrogen [Mass/Vol] 13 mg/dL 7 - 21 mg/dL [facility] CBC W Auto Differential pane l (Bld)on 03-18-2022 Abs Immature Gran <0.10 k/uL [facility] Basophils (Bld) [#/Vol] 0.03 10*3/uL <0.11 k/uL [facility] Basophils/100 WBC (Bld) 0.7 % [facility] Differential cell count method Nom (Bld) Auto [facility] Eosinophils (Bld) [#/Vol] 0.24 10*3/uL <0.46 k/uL [facility] Eosinophils/100 WBC (Bld) 5.6 % [facility] Erythrocyte distribution width (RBC) [Ratio] 15.2 % High 11.5 - 15.0 % [facility] Hematocrit (Bld) [Volume fraction] 36.3 % 36.0 - 46.0 % [facility] Hemoglobin (Bld) [Mass/Vol] 12.1 g/dL 11.5 - 15.5 g/dL [facility] Immature Gran % 0.2 % [facility] Lymphocytes (Bld) [#/Vol] 1.26 10*3/uL 1.00 - 4.00 k/uL [facility] Lymphocytes/100 WBC (Bld) 29.4 % [facility] MCH (RBC) [Entitic mass] 35.6 pg High 26.0 - 34.[address] [facility] MCHC (RBC) [Mass/Vol] 33.3 g/dL 30.5 - 36.0 g/dL [facility] MCV (RBC) [Entitic vol] 106.8 fL High 80.0 - 100.[address] [facility] Monocytes (Bld) [#/Vol] 0.53 10*3/uL <0.87 k/uL [facility] Monocytes/100 WBC (Bld) 12.4 % [facility] Neutrophils (Bld) [#/Vol] 2.22 10*3/uL 1.45 - 7.50 k/uL [facility] Neutrophils/100 WBC (Bld) 51.7 % [facility] Nucleated RBC (Bld) [#/Vol] <0.01 k/uL [facility] Nucleated RBC/100 WBC (Bld) [Ratio] 0.0 /[address] [facility] Platelet mean volume (Bld) [Entitic vol] 9.5 fL 9.0 - 12.[address] [facility] Platelets (Bld) [#/Vol] 195 10*3/uL 150 - 400 k/uL [facility] RBC (Bld) [#/Vol] 3.40 10*6/uL Low 3.90 - 5.2 0 m/uL [facility] WBC (Bld) [#/Vol] 4.29 10*3/uL 3.70 - 11. 00 k/uL [facility] Comprehensive metabolic 2000 panelon 03-18-2022 Albumin [Mass/Vol] 3.8 g/dL Low 3.9 - 4.9 g/dL [facility] ALP [Catalytic activity/Vol] 188 U/L High 34 - 123 U/L [facility] ALT [Catalytic activity/Vol] 23 U/L 7 - 38 U/L [facility] Anion gap [Moles/Vol] 8 mmol/L Low 9 - 18 mmol/L [facility] AST [Catalytic activity/Vol] 38 U/L High 13 - 35 U/L [facility] Bilirubin [Mass/Vol] 0.3 mg/dL 0.2 - 1 .3 mg/dL [facility] Calcium [Mass/Vol] 9.2 mg/dL 8.5 - 10. 2 mg/dL [facility] Chloride [Moles/Vol] 107 mmol/L High 97 - 10 5 mmol/L [facility] CO2 [Moles/Vol] 26 mmol/L 22 - 30 mmol/L [facility] Creatinine [Mass/Vol] 0.85 mg/dL 0.58 - 0.96 mg/dL [facility] Estimated Glomerular Filtration Rate 75 mL/min/1.73m >=60 mL/min/1.73m [facility] Glucose [Mass/Vol] 96 mg/dL 74 - 99 mg/dL [facility] Potassium [Moles/Vol] 4.0 mmol/L 3.7 - 5.1 mmol/L [facility] Protein [Mass/Vol] 5.8 g/dL Low 6.3 - 8.0 g/dL [facility] Sodium [Moles/Vol] 141 mmol/L 136 - 144 mmol/L [facility] Urea nitrogen [Mass/Vol] 11 mg/dL 7 - 21 mg/dL [facility] CBC W Auto Differential pane l (Bld)on 02-24-2022 Abs Immature Gran <0.10 k/uL [facility] Basophils (Bld) [#/Vol] <0.11 k/uL [facility] Basophils/100 WBC (Bld) 0.5 % [facility] Differential cell count method Nom (Bld) Auto [facility] Eosinophils (Bld) [#/Vol] 0.26 10*3/uL <0.46 k/uL [facility] Eosinophils/100 WBC (Bld) 6.1 % [facility] Erythrocyte distribution width (RBC) [Ratio] 15.1 % High 11.5 - 15.0 % [facility] Hematocrit (Bld) [Volume fraction] 35.4 % Low 36.0 - 46.0 % [facility] Hemoglobin (Bld) [Mass/Vol] 12.1 g/dL 11.5 - 15.5 g/dL [facility] Immature Gran % 0.0 % [facility] Lymphocytes (Bld) [#/Vol] 1.59 10*3/uL 1.00 - 4.00 k/uL [facility] Lymphocytes/100 WBC (Bld) 37.2 % [facility] MCH (RBC) [Entitic mass] 35.8 pg High 26.0 - 34.[address] [facility] MCHC (RBC) [Mass/Vol] 34.2 g/dL 30.5 - 36.0 g/dL [facility] MCV (RBC) [Entitic vol] 104.7 fL High 80.0 - 100.[address] [facility] Monocytes (Bld) [#/Vol] 0.47 10*3/uL <0.87 k/uL [facility] Monocytes/100 WBC (Bld) 11.0 % [facility] Neutrophils (Bld) [#/Vol] 1.93 10*3/uL 1.45 - 7.50 k/uL [facility] Neutrophils/100 WBC (Bld) 45.2 % [facility] Nucleated RBC (Bld) [#/Vol] <0.01 k/uL [facility] Nucleated RBC/100 WBC (Bld) [Ratio] 0.0 /[address] [facility] Platelet mean volume (Bld) [Entitic vol] 9.2 fL 9.0 - 12.[address] [facility] Platelets (Bld) [#/Vol] 204 10*3/uL 150 - 400 k/uL [facility] RBC (Bld) [#/Vol] 3.38 10*6/uL Low 3.90 - 5.2 0 m/uL [facility] WBC (Bld) [#/Vol] 4.27 10*3/uL 3.70 - 11. 00 k/uL [facility] Comprehensive metabolic 2000 panelon 02-24-2022 Albumin [Mass/Vol] 3.7 g/dL Low 3.9 - 4.9 g/dL [facility] ALP [Catalytic activity/Vol] 177 U/L High 34 - 123 U/L [facility] ALT [Catalytic activity/Vol] 20 U/L 7 - 38 U/L [facility] Anion gap [Moles/Vol] 9 mmol/L 9 - 18 mmol/L [facility] AST [Catalytic activity/Vol] 32 U/L 13 - 35 U/L [facility] Bilirubin [Mass/Vol] 0.3 mg/dL 0.2 - 1 .3 mg/dL [facility] Calcium [Mass/Vol] 9.5 mg/dL 8.5 - 10. 2 mg/dL [facility] Chloride [Moles/Vol] 105 mmol/L 97 - 10 5 mmol/L [facility] CO2 [Moles/Vol] 27 mmol/L 22 - 30 mmol/L [facility] Creatinine [Mass/Vol] 0.91 mg/dL 0.58 - 0.96 mg/dL [facility] Estimated Glomerular Filtration Rate 69 mL/min/1.73m >=60 mL/min/1.73m [facility] Glucose [Mass/Vol] 102 mg/dL High 74 - 99 mg/dL [facility] Potassium [Moles/Vol] 3.7 mmol/L 3.7 - 5.1 mmol/L [facility] Protein [Mass/Vol] 5.8 g/dL Low 6.3 - 8.0 g/dL [facility] Sodium [Moles/Vol] 141 mmol/L 136 - 144 mmol/L [facility] Urea nitrogen [Mass/Vol] 10 mg/dL 7 - 21 mg/dL [facility] CBC W Auto Differential pane l (Bld)on 02-03-2022 Abs Immature Gran <0.10 k/uL [facility] Basophils (Bld) [#/Vol] <0.11 k/uL [facility] Basophils/100 WBC (Bld) 0.5 % [facility] Differential cell count method Nom (Bld) Auto [facility] Eosinophils (Bld) [#/Vol] 0.26 10*3/uL <0.46 k/uL [facility] Eosinophils/100 WBC (Bld) 5.9 % [facility] Erythrocyte distribution width (RBC) [Ratio] 14.9 % 11.5 - 15.0 % [facility] Hematocrit (Bld) [Volume fraction] 35.8 % Low 36.0 - 46.0 % [facility] Hemoglobin (Bld) [Mass/Vol] 12.0 g/dL 11.5 - 15.5 g/dL [facility] Immature Gran % 0.2 % [facility] Lymphocytes (Bld) [#/Vol] 1.50 10*3/uL 1.00 - 4.00 k/uL [facility] Lymphocytes/100 WBC (Bld) 34.0 % [facility] MCH (RBC) [Entitic mass] 34.9 pg High 26.0 - 34.[address] [facility] MCHC (RBC) [Mass/Vol] 33.5 g/dL 30.5 - 36.0 g/dL [facility] MCV (RBC) [Entitic vol] 104.1 fL High 80.0 - 100.[address] [facility] Monocytes (Bld) [#/Vol] 0.51 10*3/uL <0.87 k/uL [facility] Monocytes/100 WBC (Bld) 11.6 % [facility] Neutrophils (Bld) [#/Vol] 2.11 10*3/uL 1.45 - 7.50 k/uL [facility] Neutrophils/100 WBC (Bld) 47.8 % [facility] Nucleated RBC (Bld) [#/Vol] <0.01 k/uL [facility] Nucleated RBC/100 WBC (Bld) [Ratio] 0.0 /[address] [facility] Platelet mean volume (Bld) [Entitic vol] 9.4 fL 9.0 - 12.[address] [facility] Platelets (Bld) [#/Vol] 228 10*3/uL 150 - 400 k/uL [facility] RBC (Bld) [#/Vol] 3.44 10*6/uL Low 3.90 - 5.2 0 m/uL [facility] WBC (Bld) [#/Vol] 4.41 10*3/uL 3.70 - 11. 00 k/uL [facility] Comprehensive metabolic 2000 panelon 02-03-2022 Albumin [Mass/Vol] 3.7 g/dL Low 3.9 - 4.9 g/dL [facility] ALP [Catalytic activity/Vol] 186 U/L High 34 - 123 U/L [facility] ALT [Catalytic activity/Vol] 19 U/L 7 - 38 U/L [facility] Anion gap [Moles/Vol] 11 mmol/L 9 - 18 mmol/L [facility] AST [Catalytic activity/Vol] 32 U/L 13 - 35 U/L [facility] Bilirubin [Mass/Vol] 0.3 mg/dL 0.2 - 1 .3 mg/dL [facility] Calcium [Mass/Vol] 9.3 mg/dL 8.5 - 10. 2 mg/dL [facility] Chloride [Moles/Vol] 105 mmol/L 97 - 10 5 mmol/L [facility] CO2 [Moles/Vol] 24 mmol/L 22 - 30 mmol/L [facility] Creatinine [Mass/Vol] 0.93 mg/dL 0.58 - 0.96 mg/dL [facility] Estimated Glomerular Filtration Rate 67 mL/min/1.73m >=60 mL/min/1.73m [facility] Glucose [Mass/Vol] 100 mg/dL High 74 - 99 mg/dL [facility] Potassium [Moles/Vol] 3.8 mmol/L 3.7 - 5.1 mmol/L [facility] Protein [Mass/Vol] 6.0 g/dL Low 6.3 - 8.0 g/dL [facility] Sodium [Moles/Vol] 140 mmol/L 136 - 144 mmol/L [facility] Urea nitrogen [Mass/Vol] 12 mg/dL 7 - 21 mg/dL [facility] CBC W Auto Differential pane l (Bld)on 01-07-2022 Abs Immature Gran 0.03 k/uL <0.10 k/uL [facility] Basophils (Bld) [#/Vol] 0.03 10*3/uL <0.11 k/uL [facility] Basophils/100 WBC (Bld) 0.3 % [facility] Differential cell count method Nom (Bld) Auto [facility] Eosinophils (Bld) [#/Vol] 0.20 10*3/uL <0.46 k/uL [facility] Eosinophils/100 WBC (Bld) 2.3 % [facility] Erythrocyte distribution width (RBC) [Ratio] 15.2 % High 11.5 - 15.0 % [facility] Hematocrit (Bld) [Volume fraction] 33.9 % Low 36.0 - 46.0 % [facility] Hemoglobin (Bld) [Mass/Vol] 11.6 g/dL 11.5 - 15.5 g/dL [facility] Immature Gran % 0.3 % [facility] Lymphocytes (Bld) [#/Vol] 1.17 10*3/uL 1.00 - 4.00 k/uL [facility] Lymphocytes/100 WBC (Bld) 13.4 % [facility] MCH (RBC) [Entitic mass] 35.3 pg High 26.0 - 34.[address] [facility] MCHC (RBC) [Mass/Vol] 34.2 g/dL 30.5 - 36.0 g/dL [facility] MCV (RBC) [Entitic vol] 103.0 fL High 80.0 - 100.[address] [facility] Monocytes (Bld) [#/Vol] 0.45 10*3/uL <0.87 k/uL [facility] Monocytes/100 WBC (Bld) 5.2 % [facility] Neutrophils (Bld) [#/Vol] 6.83 10*3/uL 1.45 - 7.50 k/uL [facility] Neutrophils/100 WBC (Bld) 78.5 % [facility] Nucleated RBC (Bld) [#/Vol] 10*3/uL <0.01 k/uL [facility] Nucleated RBC/100 WBC (Bld) [Ratio] 0.0 /[address] [facility] Platelet mean volume (Bld) [Entitic vol] 9.3 fL 9.0 - 12.[address] [facility] Platelets (Bld) [#/Vol] 198 10*3/uL 150 - 400 k/uL [facility] RBC (Bld) [#/Vol] 3.29 10*6/uL Low 3.90 - 5.2 0 m/uL [facility] WBC (Bld) [#/Vol] 8.71 10*3/uL 3.70 - 11. 00 k/uL [facility] Comprehensive metabolic 2000 panelon 01-07-2022 Albumin [Mass/Vol] 3.7 g/dL Low 3.9 - 4.9 g/dL [facility] ALP [Catalytic activity/Vol] 182 U/L High 34 - 123 U/L [facility] ALT [Catalytic activity/Vol] 23 U/L 7 - 38 U/L [facility] Anion gap [Moles/Vol] 11 mmol/L 9 - 18 mmol/L [facility] AST [Catalytic activity/Vol] 35 U/L 13 - 35 U/L [facility] Bilirubin [Mass/Vol] 0.4 mg/dL 0.2 - 1 .3 mg/dL [facility] Calcium [Mass/Vol] 8.5 mg/dL 8.5 - 10. 2 mg/dL [facility] Chloride [Moles/Vol] 107 mmol/L High 97 - 10 5 mmol/L [facility] CO2 [Moles/Vol] 22 mmol/L 22 - 30 mmol/L [facility] Creatinine [Mass/Vol] 1.04 mg/dL High 0.58 - 0.96 mg/dL [facility] Estimated Glomerular Filtration Rate 59 mL/min/1.73m Low >=60 mL/min/1.73m [facility] Glucose [Mass/Vol] 99 mg/dL 74 - 99 mg/dL [facility] Potassium [Moles/Vol] 4.2 mmol/L 3.7 - 5.1 mmol/L [facility] Protein [Mass/Vol] 6.0 g/dL Low 6.3 - 8.0 g/dL [facility] Sodium [Moles/Vol] 140 mmol/L 136 - 144 mmol/L [facility] Urea nitrogen [Mass/Vol] 13 mg/dL 7 - 21 mg/dL [facility] CBC W Auto Differential pane l (Bld)on 12-23-2021 Abs Immature Gran <0.03 <0.10 k/uL [facility] Basophils (Bld) [#/Vol] 0.04 10*3/uL <0.11 k/uL [facility] Basophils/100 WBC (Bld) 1.1 % [facility] Differential cell count method Nom (Bld) Auto [facility] Eosinophils (Bld) [#/Vol] 0.26 10*3/uL <0.46 k/uL [facility] Eosinophils/100 WBC (Bld) 6.9 % [facility] Erythrocyte distribution width (RBC) [Ratio] 16.2 % High 11.5 - 15.0 % [facility] Hematocrit (Bld) [Volume fraction] 34.1 % Low 36.0 - 46.0 % [facility] Hemoglobin (Bld) [Mass/Vol] 11.5 g/dL 11.5 - 15.5 g/dL [facility] Immature Gran % 0.3 % [facility] Lymphocytes (Bld) [#/Vol] 1.22 10*3/uL 1.00 - 4.00 k/uL [facility] Lymphocytes/100 WBC (Bld) 32.4 % [facility] MCH (RBC) [Entitic mass] 34.7 pg High 26.0 - 34.[address] [facility] MCHC (RBC) [Mass/Vol] 33.7 g/dL 30.5 - 36.0 g/dL [facility] MCV (RBC) [Entitic vol] 103.0 fL High 80.0 - 100.[address] [facility] Monocytes (Bld) [#/Vol] 0.43 10*3/uL <0.87 k/uL [facility] Monocytes/100 WBC (Bld) 11.4 % [facility] Neutrophils (Bld) [#/Vol] 1.80 10*3/uL 1.45 - 7.50 k/uL [facility] Neutrophils/100 WBC (Bld) 47.9 % [facility] Nucleated RBC (Bld) [#/Vol] 10*3/uL <0.01 k/uL [facility] Nucleated RBC/100 WBC (Bld) [Ratio] 0.0 /[address] [facility] Platelet mean volume (Bld) [Entitic vol] 9.5 fL 9.0 - 12.[address] [facility] Platelets (Bld) [#/Vol] 209 10*3/uL 150 - 400 k/uL [facility] RBC (Bld) [#/Vol] 3.31 10*6/uL Low 3.90 - 5.2 0 m/uL [facility] WBC (Bld) [#/Vol] 3.76 10*3/uL 3.70 - 11. 00 k/uL [facility] Comprehensive metabolic 2000 panelon 12-23-2021 Albumin [Mass/Vol] 3.7 g/dL Low 3.9 - 4.9 g/dL [facility] ALP [Catalytic activity/Vol] 144 U/L High 34 - 123 U/L [facility] ALT [Catalytic activity/Vol] 20 U/L 7 - 38 U/L [facility] Anion gap [Moles/Vol] 9 mmol/L 9 - 18 mmol/L [facility] AST [Catalytic activity/Vol] 35 U/L 13 - 35 U/L [facility] Bilirubin [Mass/Vol] 0.2 mg/dL 0.2 - 1 .3 mg/dL [facility] Calcium [Mass/Vol] 9.5 mg/dL 8.5 - 10. 2 mg/dL [facility] Chloride [Moles/Vol] 108 mmol/L High 97 - 10 5 mmol/L [facility] CO2 [Moles/Vol] 25 mmol/L 22 - 30 mmol/L [facility] Creatinine [Mass/Vol] 0.93 mg/dL 0.58 - 0.96 mg/dL [facility] Estimated Glomerular Filtration Rate 67 mL/min/1.73m >=60 mL/min/1.73m [facility] Glucose [Mass/Vol] 91 mg/dL 74 - 99 mg/dL [facility] Potassium [Moles/Vol] 4.3 mmol/L 3.7 - 5.1 mmol/L [facility] Protein [Mass/Vol] 6.1 g/dL Low 6.3 - 8.0 g/dL [facility] Sodium [Moles/Vol] 142 mmol/L 136 - 144 mmol/L [facility] Urea nitrogen [Mass/Vol] 12 mg/dL 7 - 21 mg/dL [facility] CBC W Auto Differential pane l (Bld)on 12-02-2021 Abs Immature Gran <0.03 <0.10 k/uL [facility] Basophils (Bld) [#/Vol] 0.03 10*3/uL <0.11 k/uL [facility] Basophils/100 WBC (Bld) 0.8 % [facility] Differential cell count method Nom (Bld) Auto [facility] Eosinophils (Bld) [#/Vol] 0.30 10*3/uL <0.46 k/uL [facility] Eosinophils/100 WBC (Bld) 7.5 % [facility] Erythrocyte distribution width (RBC) [Ratio] 17.7 % High 11.5 - 15.0 % [facility] Hematocrit (Bld) [Volume fraction] 35.5 % Low 36.0 - 46.0 % [facility] Hemoglobin (Bld) [Mass/Vol] 12.0 g/dL 11.5 - 15.5 g/dL [facility] Immature Gran % 0.0 % [facility] Lymphocytes (Bld) [#/Vol] 1.26 10*3/uL 1.00 - 4.00 k/uL [facility] Lymphocytes/100 WBC (Bld) 31.7 % [facility] MCH (RBC) [Entitic mass] 34.3 pg High 26.0 - 34.[address] [facility] MCHC (RBC) [Mass/Vol] 33.8 g/dL 30.5 - 36.0 g/dL [facility] MCV (RBC) [Entitic vol] 101.4 fL High 80.0 - 100.[address] [facility] Monocytes (Bld) [#/Vol] 0.44 10*3/uL <0.87 k/uL [facility] Monocytes/100 WBC (Bld) 11.1 % [facility] Neutrophils (Bld) [#/Vol] 1.95 10*3/uL 1.45 - 7.50 k/uL [facility] Neutrophils/100 WBC (Bld) 48.9 % [facility] Nucleated RBC (Bld) [#/Vol] 10*3/uL <0.01 k/uL [facility] Nucleated RBC/100 WBC (Bld) [Ratio] 0.0 /[address] [facility] Platelet mean volume (Bld) [Entitic vol] 9.5 fL 9.0 - 12.[address] [facility] Platelets (Bld) [#/Vol] 223 10*3/uL 150 - 400 k/uL [facility] RBC (Bld) [#/Vol] 3.50 10*6/uL Low 3.90 - 5.2 0 m/uL [facility] WBC (Bld) [#/Vol] 3.98 10*3/uL 3.70 - 11. 00 k/uL [facility] Comprehensive metabolic 2000 panelon 12-02-2021 Albumin [Mass/Vol] 3.8 g/dL Low 3.9 - 4.9 g/dL [facility] ALP [Catalytic activity/Vol] 140 U/L High 34 - 123 U/L [facility] ALT [Catalytic activity/Vol] 21 U/L 7 - 38 U/L [facility] Anion gap [Moles/Vol] 10 mmol/L 9 - 18 mmol/L [facility] AST [Catalytic activity/Vol] 36 U/L High 13 - 35 U/L [facility] Bilirubin [Mass/Vol] 0.3 mg/dL 0.2 - 1 .3 mg/dL [facility] Calcium [Mass/Vol] 8.7 mg/dL 8.5 - 10. 2 mg/dL [facility] Chloride [Moles/Vol] 106 mmol/L High 97 - 10 5 mmol/L [facility] CO2 [Moles/Vol] 25 mmol/L 22 - 30 mmol/L [facility] Creatinine [Mass/Vol] 0.92 mg/dL 0.58 - 0.96 mg/dL [facility] Estimated Glomerular Filtration Rate 68 mL/min/1.73m >=60 mL/min/1.73m [facility] Glucose [Mass/Vol] 96 mg/dL 74 - 99 mg/dL [facility] Potassium [Moles/Vol] 3.8 mmol/L 3.7 - 5.1 mmol/L [facility] Protein [Mass/Vol] 6.0 g/dL Low 6.3 - 8.0 g/dL [facility] Sodium [Moles/Vol] 141 mmol/L 136 - 144 mmol/L [facility] Urea nitrogen [Mass/Vol] 10 mg/dL 7 - 21 mg/dL [facility] CBC W Auto Differential pane l (Bld)on 11-06-2021 Abs Immature Gran <0.03 <0.10 k/[facility] Basophils (Bld) [#/Vol] 0.03 10*3/uL <0.11 k/uL [facility] Basophils/100 WBC (Bld) 0.6 % [facility] Differential cell count method Nom (Bld) Auto [facility] Eosinophils (Bld) [#/Vol] 0.35 10*3/uL <0.46 k/uL [facility] Eosinophils/100 WBC (Bld) 6.7 % [facility] Erythrocyte distribution width (RBC) [Ratio] 18.0 % High 11.5 - 15.0 % [facility] Hematocrit (Bld) [Volume fraction] 33.8 % Low 36.0 - 46.0 % [facility] Hemoglobin (Bld) [Mass/Vol] 11.1 g/dL Low 11.5 - 15.5 g/dL [facility] Immature Gran % 0.2 % [facility] Lymphocytes (Bld) [#/Vol] 1.55 10*3/uL 1.00 - 4.00 k/uL [facility] Lymphocytes/100 WBC (Bld) 29.8 % [facility] MCH (RBC) [Entitic mass] 32.1 pg 26.0 - 34.[address] [facility] MCHC (RBC) [Mass/Vol] 32.8 g/dL 30.5 - 36.0 g/dL [facility] MCV (RBC) [Entitic vol] 97.7 fL 80.0 - 100.[address] [facility] Monocytes (Bld) [#/Vol] 0.37 10*3/uL <0.87 k/uL [facility] Monocytes/100 WBC (Bld) 7.1 % [facility] Neutrophils (Bld) [#/Vol] 2.90 10*3/uL 1.45 - 7.50 k/uL [facility] Neutrophils/100 WBC (Bld) 55.6 % [facility] Nucleated RBC (Bld) [#/Vol] 10*3/uL <0.01 k/uL [facility] Nucleated RBC/100 WBC (Bld) [Ratio] 0.0 /[address] [facility] Platelet mean volume (Bld) [Entitic vol] 9.4 fL 9.0 - 12.[address] [facility] Platelets (Bld) [#/Vol] 229 10*3/uL 150 - 400 k/uL [facility] RBC (Bld) [#/Vol] 3.46 10*6/uL Low 3.90 - 5.2 0 m/uL [facility] WBC (Bld) [#/Vol] 5.21 10*3/uL 3.70 - 11. 00 k/uL [facility] Comprehensive metabolic 2000 panelon 11-06-2021 Albumin [Mass/Vol] 3.7 g/dL Low 3.9 - 4.9 g/dL [facility] ALP [Catalytic activity/Vol] 144 U/L High 34 - 123 U/L [facility] ALT [Catalytic activity/Vol] 20 U/L 7 - 38 U/L [facility] Anion gap [Moles/Vol] 7 mmol/L Low 9 - 18 mmol/L [facility] AST [Catalytic activity/Vol] 35 U/L 13 - 35 U/L [facility] Bilirubin [Mass/Vol] 0.3 mg/dL 0.2 - 1 .3 mg/dL [facility] Calcium [Mass/Vol] 8.8 mg/dL 8.5 - 10. 2 mg/dL [facility] Chloride [Moles/Vol] 107 mmol/L High 97 - 10 5 mmol/L [facility] CO2 [Moles/Vol] 25 mmol/L 22 - 30 mmol/L [facility] Creatinine [Mass/Vol] 0.93 mg/dL 0.58 - 0.96 mg/dL [facility] Estimated Glomerular Filtration Rate 67 mL/min/1.73m >=60 mL/min/1.73m [facility] Glucose [Mass/Vol] 95 mg/dL 74 - 99 mg/dL [facility] Potassium [Moles/Vol] 4.0 mmol/L 3.7 - 5.1 mmol/L [facility] Protein [Mass/Vol] 6.2 g/dL Low 6.3 - 8.0 g/dL [facility] Sodium [Moles/Vol] 139 mmol/L 136 - 144 mmol/L [facility] Urea nitrogen [Mass/Vol] 9 mg/dL 7 - 21 mg/dL [facility] No Panel Informationon 11-[address] [facility] CBC W Auto Differential pane l (Bld)on 10-21-2021 Abs Immature Gran <0.03 <0.10 k/uL [facility] Basophils (Bld) [#/Vol] 0.04 10*3/uL <0.11 k/uL [facility] Basophils/100 WBC (Bld) 0.8 % [facility] Differential cell count method Nom (Bld) Auto [facility] Eosinophils (Bld) [#/Vol] 0.51 10*3/uL High <0.46 k/uL [facility] Eosinophils/100 WBC (Bld) 10.7 % [facility] Erythrocyte distribution width (RBC) [Ratio] 17.4 % High 11.5 - 15.0 % [facility] Hematocrit (Bld) [Volume fraction] 33.4 % Low 36.0 - 46.0 % [facility] Hemoglobin (Bld) [Mass/Vol] 11.2 g/dL Low 11.5 - 15.5 g/dL [facility] Immature Gran % 0.2 % [facility] Lymphocytes (Bld) [#/Vol] 1.42 10*3/uL 1.00 - 4.00 k/uL [facility] Lymphocytes/100 WBC (Bld) 29.9 % [facility] MCH (RBC) [Entitic mass] 31.6 pg 26.0 - 34.[address] [facility] MCHC (RBC) [Mass/Vol] 33.5 g/dL 30.5 - 36.0 g/dL [facility] MCV (RBC) [Entitic vol] 94.4 fL 80.0 - 100.[address] [facility] Monocytes (Bld) [#/Vol] 0.45 10*3/uL <0.87 k/uL [facility] Monocytes/100 WBC (Bld) 9.5 % [facility] Neutrophils (Bld) [#/Vol] 2.32 10*3/uL 1.45 - 7.50 k/uL [facility] Neutrophils/100 WBC (Bld) 48.9 % [facility] Nucleated RBC (Bld) [#/Vol] 10*3/uL <0.01 k/uL [facility] Nucleated RBC/100 WBC (Bld) [Ratio] 0.0 /[address] [facility] Platelet mean volume (Bld) [Entitic vol] 9.5 fL 9.0 - 12.[address] [facility] Platelets (Bld) [#/Vol] 240 10*3/uL 150 - 400 k/uL [facility] RBC (Bld) [#/Vol] 3.54 10*6/uL Low 3.90 - 5.2 0 m/uL [facility] WBC (Bld) [#/Vol] 4.75 10*3/uL 3.70 - 11. 00 k/uL [facility] Comprehensive metabolic 2000 panelon 10-21-2021 Albumin [Mass/Vol] 3.8 g/dL Low 3.9 - 4.9 g/dL [facility] ALP [Catalytic activity/Vol] 141 U/L High 34 - 123 U/L [facility] ALT [Catalytic activity/Vol] 18 U/L 7 - 38 U/L [facility] Anion gap [Moles/Vol] 10 mmol/L 9 - 18 mmol/L [facility] AST [Catalytic activity/Vol] 32 U/L 13 - 35 U/L [facility] Bilirubin [Mass/Vol] 0.3 mg/dL 0.2 - 1 .3 mg/dL [facility] Calcium [Mass/Vol] 9.1 mg/dL 8.5 - 10. 2 mg/dL [facility] Chloride [Moles/Vol] 106 mmol/L High 97 - 10 5 mmol/L [facility] CO2 [Moles/Vol] 24 mmol/L 22 - 30 mmol/L [facility] Creatinine [Mass/Vol] 0.91 mg/dL 0.58 - 0.96 mg/dL [facility] Estimated Glomerular Filtration Rate 69 mL/min/1.73m >=60 mL/min/1.73m [facility] Glucose [Mass/Vol] 110 mg/dL High 74 - 99 mg/dL [facility] Potassium [Moles/Vol] 4.0 mmol/L 3.7 - 5.1 mmol/L [facility] Protein [Mass/Vol] 6.4 g/dL 6.3 - 8.0 g/dL [facility] Sodium [Moles/Vol] 140 mmol/L 136 - 144 mmol/L [facility] Urea nitrogen [Mass/Vol] 9 mg/dL 7 - 21 mg/dL [facility] CBC W Auto Differential pane l (Bld)on 09-30-2021 Abs Immature Gran <0.03 <0.10 k/uL [facility] Basophils (Bld) [#/Vol] 0.04 10*3/uL <0.11 k/uL [facility] Basophils/100 WBC (Bld) 0.6 % [facility] Differential cell count method Nom (Bld) Auto [facility] Eosinophils (Bld) [#/Vol] 0.63 10*3/uL High <0.46 k/uL [facility] Eosinophils/100 WBC (Bld) 9.4 % [facility] Erythrocyte distribution width (RBC) [Ratio] 15.5 % High 11.5 - 15.0 % [facility] Hematocrit (Bld) [Volume fraction] 33.8 % Low 36.0 - 46.0 % [facility] Hemoglobin (Bld) [Mass/Vol] 11.0 g/dL Low 11.5 - 15.5 g/dL [facility] Immature Gran % 0.3 % [facility] Lymphocytes (Bld) [#/Vol] 1.14 10*3/uL 1.00 - 4.00 k/uL [facility] Lymphocytes/100 WBC (Bld) 17.0 % [facility] MCH (RBC) [Entitic mass] 30.3 pg 26.0 - 34.[address] [facility] MCHC (RBC) [Mass/Vol] 32.5 g/dL 30.5 - 36.0 g/dL [facility] MCV (RBC) [Entitic vol] 93.1 fL 80.0 - 100.[address] [facility] Monocytes (Bld) [#/Vol] 0.55 10*3/uL <0.87 k/uL [facility] Monocytes/100 WBC (Bld) 8.2 % [facility] Neutrophils (Bld) [#/Vol] 4.33 10*3/uL 1.45 - 7.50 k/uL [facility] Neutrophils/100 WBC (Bld) 64.5 % [facility] Nucleated RBC (Bld) [#/Vol] 10*3/uL <0.01 k/uL [facility] Nucleated RBC/100 WBC (Bld) [Ratio] 0.0 /[address] [facility] Platelet mean volume (Bld) [Entitic vol] 9.4 fL 9.0 - 12.[address] [facility] Platelets (Bld) [#/Vol] 262 10*3/uL 150 - 400 k/uL [facility] RBC (Bld) [#/Vol] 3.63 10*6/uL Low 3.90 - 5.2 0 m/uL [facility] WBC (Bld) [#/Vol] 6.71 10*3/uL 3.70 - 11. 00 k/uL [facility] Comprehensive metabolic 2000 panelon 09-30-2021 Albumin [Mass/Vol] 3.5 g/dL Low 3.9 - 4.9 g/dL [facility] ALP [Catalytic activity/Vol] 170 U/L High 34 - 123 U/L [facility] ALT [Catalytic activity/Vol] 14 U/L 7 - 38 U/L [facility] Anion gap [Moles/Vol] 8 mmol/L Low 9 - 18 mmol/L [facility] AST [Catalytic activity/Vol] 25 U/L 13 - 35 U/L [facility] Bilirubin [Mass/Vol] 0.2 mg/dL 0.2 - 1 .3 mg/dL [facility] Calcium [Mass/Vol] 8.9 mg/dL 8.5 - 10. 2 mg/dL [facility] Chloride [Moles/Vol] 104 mmol/L 97 - 10 5 mmol/L [facility] CO2 [Moles/Vol] 27 mmol/L 22 - 30 mmol/L [facility] Creatinine [Mass/Vol] 1.25 mg/dL High 0.58 - 0.96 mg/dL [facility] Estimated Glomerular Filtration Rate 47 mL/min/1.73m Low >=60 mL/min/1.73m [facility] Glucose [Mass/Vol] 97 mg/dL 74 - 99 mg/dL [facility] Potassium [Moles/Vol] 3.9 mmol/L 3.7 - 5.1 mmol/L [facility] Protein [Mass/Vol] 6.0 g/dL Low 6.3 - 8.0 g/dL [facility] Sodium [Moles/Vol] 139 mmol/L 136 - 144 mmol/L [facility] Urea nitrogen [Mass/Vol] 20 mg/dL 7 - 21 mg/dL [facility] US THYROID/PARATHYROIDon [facility] CBC W Auto Differential pane l (Bld)on 09-02-2021 Abs Immature Gran <0.03 <0.10 k/uL [facility] Basophils (Bld) [#/Vol] 10*3/uL <0.11 k/uL [facility] Basophils/100 WBC (Bld) 0.4 % [facility] Differential cell count method Nom (Bld) Auto [facility] Eosinophils (Bld) [#/Vol] 0.26 10*3/uL <0.46 k/uL [facility] Eosinophils/100 WBC (Bld) 5.4 % [facility] Erythrocyte distribution width (RBC) [Ratio] 15.2 % High 11.5 - 15.0 % [facility] Hematocrit (Bld) [Volume fraction] 38.3 % 36.0 - 46.0 % [facility] Hemoglobin (Bld) [Mass/Vol] 12.3 g/dL 11.5 - 15.5 g/dL [facility] Immature Gran % 0.4 % [facility] Lymphocytes (Bld) [#/Vol] 1.29 10*3/uL 1.00 - 4.00 k/uL [facility] Lymphocytes/100 WBC (Bld) 26.9 % [facility] MCH (RBC) [Entitic mass] 29.9 pg 26.0 - 34.[address] [facility] MCHC (RBC) [Mass/Vol] 32.1 g/dL 30.5 - 36.0 g/dL [facility] MCV (RBC) [Entitic vol] 93.0 fL 80.0 - 100.[address] [facility] Monocytes (Bld) [#/Vol] 0.46 10*3/uL <0.87 k/uL [facility] Monocytes/100 WBC (Bld) 9.6 % [facility] Neutrophils (Bld) [#/Vol] 2.75 10*3/uL 1.45 - 7.50 k/uL [facility] Neutrophils/100 WBC (Bld) 57.3 % [facility] Nucleated RBC (Bld) [#/Vol] 10*3/uL <0.01 k/uL [facility] Nucleated RBC/100 WBC (Bld) [Ratio] 0.0 /[address] [facility] Platelet mean volume (Bld) [Entitic vol] 10.1 fL 9.0 - 12.[address] [facility] Platelets (Bld) [#/Vol] 177 10*3/uL 150 - 400 k/uL [facility] RBC (Bld) [#/Vol] 4.12 10*6/uL 3.90 - 5.2 0 m/uL [facility] WBC (Bld) [#/Vol] 4.80 10*3/uL 3.70 - 11. 00 k/uL [facility] Comprehensive metabolic 2000 panelon 09-02-2021 Albumin [Mass/Vol] 3.7 g/dL Low 3.9 - 4.9 g/dL [facility] ALP [Catalytic activity/Vol] 127 U/L High 34 - 123 U/L [facility] ALT [Catalytic activity/Vol] 20 U/L 7 - 38 U/L [facility] Anion gap [Moles/Vol] 5 mmol/L Low 9 - 18 mmol/L [facility] AST [Catalytic activity/Vol] 37 U/L High 13 - 35 U/L [facility] Bilirubin [Mass/Vol] 0.2 mg/dL 0.2 - 1 .3 mg/dL [facility] Calcium [Mass/Vol] 9.0 mg/dL 8.5 - 10. 2 mg/dL [facility] Chloride [Moles/Vol] 106 mmol/L High 97 - 10 5 mmol/L [facility] CO2 [Moles/Vol] 28 mmol/L 22 - 30 mmol/L [facility] Creatinine [Mass/Vol] 0.96 mg/dL 0.58 - 0.96 mg/dL [facility] Estimated Glomerular Filtration Rate 65 mL/min/1.73m >=60 mL/min/1.73m [facility] Glucose [Mass/Vol] 102 mg/dL High 74 - 99 mg/dL [facility] Potassium [Moles/Vol] 3.9 mmol/L 3.7 - 5.1 mmol/L [facility] Protein [Mass/Vol] 5.7 g/dL Low 6.3 - 8.0 g/dL [facility] Sodium [Moles/Vol] 139 mmol/L 136 - 144 mmol/L [facility] Urea nitrogen [Mass/Vol] 16 mg/dL 7 - 21 mg/dL [facility] No Panel Informationon 08-[address] [facility] External Other: Preferred Me thod of Contacton 12-01-2016 methcontact secmsg [employer] Phone: [phone] Patient's prefered method of contact secmsg Invalid Interpretation Code [employer] Work Phone: [phone] Office Visiton 12-01-2016 Documentation of current medications (procedure) Done Invalid Interpretation Code [employer] Phone: [phone] Fall risk assessment No Invalid Interpretation Code [employer] Phone: [phone] Protein mass conc Done [employer] Work Phone: [phone] Tobacco smoking status NHIS Never smoker [employer] Phone: [phone] Tobacco use CPHS Never smoker Invalid Interpretation Code [employer] Work Phone: [phone] Replaced Document: Susan E CG Observationson 12-01-2016 EKG QRS axis -31 deg [employer] Work Phone: [phone] electrocardiogram interpretation 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 ABNORMAL [employer] Work Phone: [phone] P [place] 47 deg [employer] Work Phone: [phone] P wave axis, electrocardiogram 47 deg Invalid Interpretation Code [employer] Work Phone: [phone] [place] Interval 190 ms [employer] Work Phone: [phone] [place] interval, electrocardiogram 190 ms Invalid Interpretation Code [employer] Work Phone: [phone] Pulse (Heart Rate) 68 /min Invalid Interpretation Code [employer] Work Phone: [phone] QRS axis, electrocardiogram -31 deg Invalid Interpretation Code [facility] [facility] Phone: [phone] QRS Duration 86 ms [facility] Work Phone: [phone] QRS duration, electrocardiogram 86 ms Invalid Interpretation Code [facility] Work Phone: [phone] QT Interval new path ms [facility] Work Phone: [phone] QT interval, electrocardiogram new path ms Invalid Interpretation Code [facility] Work Phone: [phone] QTc [place] 412 ms [facility] Work Phone: [phone] T [place] 17 deg [facility] Work Phone: [phone] T wave axis, electrocardiogram 17 deg Invalid Interpretation Code [facility] Work Phone: [phone] Clinical Lists Update: 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 02-14-2025 07:00-0400 Body temperature 97.2 [degF] Treatment [facility]str Work Phone: [facility] 02-14-2025 07:00-0400 Diastolic blood pressure 77 mm[Hg] Treatment [facility]str Work Phone: [facility] 02-14-2025 07:00-0400 Heart rate 74 /min Treatment [facility]str Work Phone: [facility] 02-14-2025 07:00-0400 Systolic blood pressure 133 mm[Hg] Treatment [facility]str Work Phone: [facility] 02-13-2025 08:36-0400 Body mass index (BMI) [Ratio] 32.8 kg/m2 Rip [employer] DO Work Phone: [facility] 02-13-2025 08:36-0400 Body temperature 98.1 [degF] Rip Masci DO Work Phone: [facility] 02-13-2025 08:36-0400 Body weight 80.74 kg Rip Masci DO Work Phone: [facility] 02-13-2025 08:36-0400 Diastolic blood pressure 69 mm[Hg] Rip [employer] DO Work Phone: [facility] 02-13-2025 08:36-0400 Heart rate 68 /min Rip Rivers DO Work Phone: [facility] 02-13-2025 08:36-0400 SaO2% (BldA) [Mass fraction] 95 % Rip Rivers DO Work Phone: [facility] 02-13-2025 08:36-0400 Systolic blood pressure 101 mm[Hg] Rip Rivers DO Work Phone: [facility] 02-13-2025 08:24-0400 Body mass index (BMI) [Ratio] 32.8 kg/m2 [facility] Work Phone: [facility] 02-13-2025 08:24-0400 Body weight 80.74 kg [facility] Work Phone: [facility] 02-06-2025 08:05-0400 Body mass index (BMI) [Ratio] 32.24 kg/m2 Meenu Garay MD Work Phone: [facility] 02-06-2025 08:05-0400 Body temperature 98.91 [degF] Meenu Garay MD Work Phone: [facility] 02-06-2025 08:05-0400 Body weight 79.38 kg Meenu Garay MD Work Phone: [facility] 02-06-2025 08:05-0400 Diastolic blood pressure 60 mm[Hg] Meenu Garay MD Work Phone: [facility] 02-06-2025 08:05-0400 Heart rate 78 /min Meenu Garay MD Work Phone: [facility] 02-06-2025 08:05-0400 Respiratory rate 18 /min Meenu Garay MD Work Phone: [facility] 02-06-2025 08:05-0400 SaO2% (BldA) [Mass fraction] 96 % Meenu Garay MD Work Phone: [facility] 02-06-2025 08:05-0400 Systolic blood pressure 111 mm[Hg] Meenu Garay MD Work Phone: [facility] 01-24-2025 07:00-0400 Body temperature 98.1 [degF] Treatment Wstr Work Phone: [facility] 01-24-2025 07:00-0400 Diastolic blood pressure 75 mm[Hg] Treatment Wstr Work Phone: [facility] 01-24-2025 07:00-0400 Heart rate 102 /min Treatment Wstr Work Phone: [facility] 01-24-2025 07:00-0400 Systolic blood pressure 135 mm[Hg] Treatment Wstr Work Phone: [facility] 01-23-2025 08:28-0400 Body mass index (BMI) [Ratio] 32.61 kg/m2 Caity Cote VE TEACHER.CLIENT REPORTING ASSOCIATE Work Phone: [facility] 01-23-2025 08:28-0400 Body temperature 97.7 [degF] Caity Cote VE TEACHER.CLIENT REPORTING ASSOCIATE Work Phone: [facility] 01-23-2025 08:28-0400 Body weight 80.29 kg Caity Cote VE TEACHER.CLIENT REPORTING ASSOCIATE Work Phone: [facility] 01-23-2025 08:28-0400 Diastolic blood pressure 80 mm[Hg] Caity Cote VE TEACHER.CLIENT REPORTING ASSOCIATE Work Phone: [facility] 01-23-2025 08:28-0400 Heart rate 72 /min Caity Cote VE TEACHER.CLIENT REPORTING ASSOCIATE Work Phone: [facility] 01-23-2025 08:28-0400 SaO2% (BldA) [Mass fraction] 96 % Caity Cote VE TEACHER.CLIENT REPORTING ASSOCIATE Work Phone: [facility] 01-23-2025 08:28-0400 Systolic blood pressure 127 mm[Hg] Caity Cote VE TEACHER.CLIENT REPORTING ASSOCIATE Work Phone: [facility] 01-23-2025 07:57-0400 Body mass index (BMI) [Ratio] 32.61 kg/m2 Lab[facility] Work Phone: [facility] 01-23-2025 07:57-0400 Body weight 80.29 kg Lab/Port [facility] Work Phone: [facility] 01-03-2025 08:48-0400 Body temperature 97.81 [degF] Treatment Wstr Work Phone: [facility] 01-03-2025 08:48-0400 Diastolic blood pressure 70 mm[Hg] Treatment Wstr Work Phone: [facility] 01-03-2025 08:48-0400 Heart rate 58 /min Treatment Wstr Work Phone: [facility] 01-03-2025 08:48-0400 Respiratory rate 16 /min Treatment Wstr Work Phone: [facility] 01-03-2025 08:48-0400 SaO2% (BldA) [Mass fraction] 98 % Treatment Wstr Work Phone: [facility] 01-03-2025 08:48-0400 Systolic blood pressure 127 mm[Hg] Treatment Wstr Work Phone: [facility] 01-02-2025 08:12-0400 Body mass index (BMI) [Ratio] 32.24 kg/m2 Rip Masci DO Work Phone: [facility] 01-02-2025 08:12-0400 Body temperature 97.39 [degF] Rip Masci DO Work Phone: [facility] 01-02-2025 08:12-0400 Body weight 79.38 kg Rip Masci DO Work Phone: [facility] 01-02-2025 08:12-0400 Diastolic blood pressure 80 mm[Hg] Rip Masci DO Work Phone: [facility] 01-02-2025 08:12-0400 Heart rate 67 /min Rip Masci DO Work Phone: [facility] 01-02-2025 08:12-0400 SaO2% (BldA) [Mass fraction] 99 % Rip Masci DO Work Phone: [facility] 01-02-2025 08:12-0400 Systolic blood pressure 123 mm[Hg] Rip Rivers DO Work Phone: [facility] 01-02-2025 08:03-0400 Body mass index (BMI) [Ratio] 32.24 kg/m2 Lab/Port [facility] Work Phone: [facility] 01-02-2025 08:03-0400 Body weight 79.38 kg Lab/Port [facility]str Work Phone: [facility] 12-13-2024 08:00-0400 Body temperature 97.81 [degF] Treatment Wstr Work Phone: [facility] 12-13-2024 08:00-0400 Diastolic blood pressure 68 mm[Hg] Treatment Wstr Work Phone: [facility] 12-13-2024 08:00-0400 Heart rate 64 /min Treatment Wstr Work Phone: [facility] 12-13-2024 08:00-0400 SaO2% (BldA) [Mass fraction] 97 % Treatment Wstr Work Phone: [facility] 12-13-2024 08:00-0400 Systolic blood pressure 129 mm[Hg] Treatment Wstr Work Phone: [facility] 12-12-2024 07:48-0400 Body temperature 97.39 [degF] Caity Cote VE TEACHER.CLIENT REPORTING ASSOCIATE Work Phone: [facility] 12-12-2024 07:48-0400 Diastolic blood pressure 77 mm[Hg] Caity Cote VE TEACHER.CLIENT REPORTING ASSOCIATE Work Phone: [facility] 12-12-2024 07:48-0400 Heart rate 62 /min Caity Cote VE TEACHER.CLIENT REPORTING ASSOCIATE Work Phone: [facility] 12-12-2024 07:48-0400 SaO2% (BldA) [Mass fraction] 93 % Caity Cote VE TEACHER.CLIENT REPORTING ASSOCIATE Work Phone: [facility] 12-12-2024 07:48-0400 Systolic blood pressure 130 mm[Hg] Caity Cote VE TEACHER.CLIENT REPORTING ASSOCIATE Work Phone: [facility] 12-12-2024 07:00-0400 Body mass index (BMI) [Ratio] 31.88 kg/m2 Lab[facility] Work Phone: [facility] 12-12-2024 07:00-0400 Body weight 78.47 kg Lab/Port [facility]str Work Phone: [facility] 11-22-2024 09:00-0400 Body temperature 98.6 [degF] Treatment Wstr Work Phone: [facility] 11-22-2024 09:00-0400 Diastolic blood pressure 63 mm[Hg] Treatment Wstr Work Phone: [facility] 11-22-2024 09:00-0400 Heart rate 80 /min Treatment Wstr Work Phone: [facility] 11-22-2024 09:00-0400 SaO2% (BldA) [Mass fraction] 95 % Treatment Wstr Work Phone: [facility] 11-22-2024 09:00-0400 Systolic blood pressure 106 mm[Hg] Treatment Wstr Work Phone: [facility] 11-21-2024 08:58-0400 Body mass index (BMI) [Ratio] 31.51 kg/m2 Caity Cote VE TEACHER.CLIENT REPORTING ASSOCIATE Work Phone: [facility] 11-21-2024 08:58-0400 Body temperature 97.9 [degF] Caity Cote VE TEACHER.CLIENT REPORTING ASSOCIATE Work Phone: [facility] 11-21-2024 08:58-0400 Body weight 77.56 kg Caity Cote VE TEACHER.CLIENT REPORTING ASSOCIATE Work Phone: [facility] 11-21-2024 08:58-0400 Diastolic blood pressure 79 mm[Hg] Caity Cote VE TEACHER.CLIENT REPORTING ASSOCIATE Work Phone: [facility] 11-21-2024 08:58-0400 Heart rate 58 /min Caity Cote VE TEACHER.CLIENT REPORTING ASSOCIATE Work Phone: [facility] 11-21-2024 08:58-0400 SaO2% (BldA) [Mass fraction] 95 % Caity Cote VE TEACHER.CLIENT REPORTING ASSOCIATE Work Phone: [facility] 11-21-2024 08:58-0400 Systolic blood pressure 123 mm[Hg] Caity Cote VE TEACHER.CLIENT REPORTING ASSOCIATE Work Phone: [facility] 11-21-2024 08:26-0400 Body mass index (BMI) [Ratio] 31.51 kg/m2 Lab/Port Wstr Work Phone: [facility] 11-21-2024 08:26-0400 Body weight 77.56 kg Lab/Port Wstr Work Phone: [facility] 11-01-2024 07:51-0400 Body temperature 97 [degF] Treatment Wstr Work Phone: [facility] 11-01-2024 07:51-0400 Diastolic blood pressure 72 mm[Hg] Treatment Wstr Work Phone: [facility] 11-01-2024 07:51-0400 Heart rate 65 /min Treatment Wstr Work Phone: [facility] 11-01-2024 07:51-0400 SaO2% (BldA) [Mass fraction] 94 % Treatment Wstr Work Phone: [facility] 11-01-2024 07:51-0400 Systolic blood pressure 94 mm[Hg] Treatment Wstr Work Phone: [facility] 10-31-2024 07:57-0400 Body temperature 98.4 [degF] Dunlap Cote VE TEACHER.CLIENT REPORTING ASSOCIATE Work Phone: [facility] 10-31-2024 07:57-0400 Diastolic blood pressure 68 mm[Hg] Dunlap Cote VE TEACHER.CLIENT REPORTING ASSOCIATE Work Phone: [facility] 10-31-2024 07:57-0400 Heart rate 58 /min Dunlap Cote VE TEACHER.CLIENT REPORTING ASSOCIATE Work Phone: [facility] 10-31-2024 07:57-0400 Respiratory rate 15 /min Caity Cote VE TEACHER.CLIENT REPORTING ASSOCIATE Work Phone: [facility] 10-31-2024 07:57-0400 SaO2% (BldA) [Mass fraction] 97 % Dunlap Cote VE TEACHER.CLIENT REPORTING ASSOCIATE Work Phone: [facility] 10-31-2024 07:57-0400 Systolic blood pressure 122 mm[Hg] Caity Cote VE TEACHER.CLIENT REPORTING ASSOCIATE Work Phone: [facility] 10-31-2024 07:56-0400 Body mass index (BMI) [Ratio] 31.28 kg/m2 Dunlap Cote VE TEACHER.CLIENT REPORTING ASSOCIATE Work Phone: [facility] 10-31-2024 07:56-0400 Body weight 77 kg Caity Maryenter VE TEACHER.CLIENT REPORTING ASSOCIATE Work Phone: [facility] 10-11-2024 07:43-0400 Body temperature 97.39 [degF] Treatment Wstr Work Phone: [facility] 10-11-2024 07:43-0400 Diastolic blood pressure 52 mm[Hg] Treatment Wstr Work Phone: [facility] 10-11-2024 07:43-0400 Heart rate 76 /min Treatment Wstr Work Phone: [facility] 10-11-2024 07:43-0400 SaO2% (BldA) [Mass fraction] 96 % Treatment Wstr Work Phone: [facility] 10-11-2024 07:43-0400 Systolic blood pressure 120 mm[Hg] Treatment Wstr Work Phone: [facility] 10-10-2024 09:21-0400 Body mass index (BMI) [Ratio] 31.64 kg/m2 Dunlap Cote VE TEACHER.CLIENT REPORTING ASSOCIATE Work Phone: [facility] 10-10-2024 09:21-0400 Body temperature 98.4 [degF] Caity Cote VE TEACHER.CLIENT REPORTING ASSOCIATE Work Phone: [facility] 10-10-2024 09:21-0400 Body weight 77.9 kg Caity Maryenter VE TEACHER.CLIENT REPORTING ASSOCIATE Work Phone: [facility] 10-10-2024 09:21-0400 Diastolic blood pressure 82 mm[Hg] Caity Cote VE TEACHER.CLIENT REPORTING ASSOCIATE Work Phone: [facility] 10-10-2024 09:21-0400 Heart rate 77 /min Caity Cote VE TEACHER.CLIENT REPORTING ASSOCIATE Work Phone: [facility] 10-10-2024 09:21-0400 SaO2% (BldA) [Mass fraction] 95 % Caity Cote VE TEACHER.CLIENT REPORTING ASSOCIATE Work Phone: [facility] 10-10-2024 09:21-0400 Systolic blood pressure 129 mm[Hg] Caity Cote VE TEACHER.CLIENT REPORTING ASSOCIATE Work Phone: [facility] 10-03-2024 10:39-0400 Body mass index (BMI) [Ratio] 31.78 kg/m2 Quita Hoff Work Phone: [facility] 10-03-2024 10:39-0400 Body temperature 98.71 [degF] Quita Hoff Work Phone: [facility] 10-03-2024 10:39-0400 Body weight 78.25 kg Quita Hoff Work Phone: [facility] 10-03-2024 10:39-0400 Diastolic blood pressure 84 mm[Hg] Quita Hoff Work Phone: [facility] 10-03-2024 10:39-0400 Heart rate 74 /min Quita Hoff Work Phone: [facility] 10-03-2024 10:39-0400 SaO2% (BldA) [Mass fraction] 96 % Quita Hoff Work Phone: [facility] 10-03-2024 10:39-0400 Systolic blood pressure 133 mm[Hg] Quita Hoff Work Phone: [facility] 10-03-2024 10:25-0400 Body mass index (BMI) [Ratio] 31.78 kg/m2 Lab/Port Wstr Work Phone: [facility] 10-03-2024 10:25-0400 Body weight 78.25 kg Lab/Port Wstr Work Phone: [facility] 2024 10:17-0400 Body mass index (BMI) [Ratio] 32.01 kg/m2 Isac Billingsley MD Work Phone: [facility] 2024 10:17-0400 Body weight 76.84 kg Isac Billingsley MD Work Phone: [facility] 2024 10:17-0400 Diastolic blood pressure 68 mm[Hg] Isac Billingsley MD Work Phone: [facility] 2024 10:17-0400 Heart rate 68 /min Isac Billingsley MD Work Phone: [facility] 2024 10:17-0400 SaO2% (BldA) [Mass fraction] 88 % Isac Billingsley MD Work Phone: [facility] 2024 10:17-0400 Systolic blood pressure 120 mm[Hg] Isac Billingsley MD Work Phone: [facility] 09-06-2024 14:00-0400 Body temperature 98.01 [degF] Treatment Wstr Work Phone: [facility] 09-06-2024 14:00-0400 Diastolic blood pressure 67 mm[Hg] Treatment Wstr Work Phone: [facility] 09-06-2024 14:00-0400 Heart rate 60 /min Treatment Wstr Work Phone: [facility] 09-06-2024 14:00-0400 Systolic blood pressure 106 mm[Hg] Treatment Wstr Work Phone: [facility] 09-05-2024 10:47-0400 Body mass index (BMI) [Ratio] 31.88 kg/m2 Lab/Port [facility]str Work Phone: [facility] 09-05-2024 10:47-0400 Body temperature 97.59 [degF] Caity Cote VE TEACHER.CLIENT REPORTING ASSOCIATE Work Phone: [facility] 09-05-2024 10:47-0400 Body weight 78.47 kg Lab/Port Wstr Work Phone: [facility] 09-05-2024 10:47-0400 Diastolic blood pressure 80 mm[Hg] Caity Cote VE TEACHER.CLIENT REPORTING ASSOCIATE Work Phone: [facility] 09-05-2024 10:47-0400 Heart rate 54 /min Caity Cote VE TEACHER.CLIENT REPORTING ASSOCIATE Work Phone: [facility] 09-05-2024 10:47-0400 SaO2% (BldA) [Mass fraction] 96 % Caity Cote VE TEACHER.CLIENT REPORTING ASSOCIATE Work Phone: [facility] 09-05-2024 10:47-0400 Systolic blood pressure 146 mm[Hg] Caity Cote VE TEACHER.CLIENT REPORTING ASSOCIATE Work Phone: [facility] 08-16-2024 14:00-0400 Body mass index (BMI) [Ratio] 32.15 kg/m2 Treatment Wstr Work Phone: [facility] 08-16-2024 14:00-0400 Body temperature 98.1 [degF] Treatment Wstr Work Phone: [facility] 08-16-2024 14:00-0400 Body weight 79.15 kg Treatment Wstr Work Phone: [facility] 08-16-2024 14:00-0400 Diastolic blood pressure 61 mm[Hg] Treatment Wstr Work Phone: [facility] 08-16-2024 14:00-0400 Heart rate 59 /min Treatment Wstr Work Phone: [facility] 08-16-2024 14:00-0400 SaO2% (BldA) [Mass fraction] 95 % Treatment Wstr Work Phone: [facility] 08-16-2024 14:00-0400 Systolic blood pressure 125 mm[Hg] Treatment Wstr Work Phone: [facility] 08-15-2024 11:04-0400 Body mass index (BMI) [Ratio] 32.34 kg/m2 Rip Jollyi DO Work Phone: [facility] 08-15-2024 11:04-0400 Body temperature 98.2 [degF] Rip Jollyi DO Work Phone: [facility] 08-15-2024 11:04-0400 Body weight 79.61 kg Rip Jollyi DO Work Phone: [facility] 08-15-2024 11:04-0400 Diastolic blood pressure 75 mm[Hg] Rip Jollyi DO Work Phone: [facility] 08-15-2024 11:04-0400 Heart rate 68 /min Rip Jollyi DO Work Phone: [facility] 08-15-2024 11:04-0400 SaO2% (BldA) [Mass fraction] 98 % Rip Jollyi DO Work Phone: [facility] 08-15-2024 11:04-0400 Systolic blood pressure 129 mm[Hg] Rip Riki DO Work Phone: [facility] 08-15-2024 10:55-0400 Body mass index (BMI) [Ratio] 32.34 kg/m2 Lab/Port [facility] Work Phone: [facility] 08-15-2024 10:55-0400 Body weight 79.61 kg Lab/Port Wstr Work Phone: [facility] 07-26-2024 13:25-0500 Body temperature 97.81 [degF] Treatment Wstr Work Phone: [facility] 07-26-2024 13:25-0500 Diastolic blood pressure 56 mm[Hg] Treatment Wstr Work Phone: [facility] 07-26-2024 13:25-0500 Heart rate 87 /min Treatment Wstr Work Phone: [facility] 07-26-2024 13:25-0500 SaO2% (BldA) [Mass fraction] 97 % Treatment Wstr Work Phone: [facility] 07-26-2024 13:25-0500 Systolic blood pressure 93 mm[Hg] Treatment Wstr Work Phone: [facility] 07-25-2024 10:14-0500 Body mass index (BMI) [Ratio] 31.69 kg/m2 Quita Hoff Work Phone: [facility] 07-25-2024 10:14-0500 Body temperature 98.8 [degF] Quitanydia Hoff Work Phone: [facility] 07-25-2024 10:14-0500 Body weight 78.02 kg Quita Hoff Work Phone: [facility] 07-25-2024 10:14-0500 Diastolic blood pressure 77 mm[Hg] Quita Hoff Work Phone: [facility] 07-25-2024 10:14-0500 Heart rate 61 /min Quitanydia Hoff Work Phone: [facility] 07-25-2024 10:14-0500 SaO2% (BldA) [Mass fraction] 99 % Quita Hoff Work Phone: [facility] 07-25-2024 10:14-0500 Systolic blood pressure 124 mm[Hg] Quita Hoff Work Phone: [facility] 07-25-2024 09:53-0500 Body mass index (BMI) [Ratio] 31.69 kg/m2 Lab/Port Wstr Work Phone: [facility] 07-25-2024 09:53-0500 Body weight 78.02 kg Lab/Port Wstr Work Phone: [facility] 07-05-2024 14:02-0500 Body temperature 97.81 [degF] Treatment Wstr Work Phone: [facility] 07-05-2024 14:02-0500 Diastolic blood pressure 53 mm[Hg] Treatment Wstr Work Phone: [facility] 07-05-2024 14:02-0500 Heart rate 60 /min Treatment Wstr Work Phone: [facility] 07-05-2024 14:02-0500 SaO2% (BldA) [Mass fraction] 97 % Treatment Wstr Work Phone: [facility] 07-05-2024 14:02-0500 Systolic blood pressure 112 mm[Hg] Treatment Wstr Work Phone: [facility] 07-04-2024 10:42-0500 Body mass index (BMI) [Ratio] 32.06 kg/m2 Lab/Port Wstr Work Phone: [facility] 07-04-2024 10:42-0500 Body temperature 98.29 [degF] Caity Cote VE TEACHER.CLIENT REPORTING ASSOCIATE Work Phone: [facility] 07-04-2024 10:42-0500 Body weight 78.93 kg Lab/Port Wstr Work Phone: [facility] 07-04-2024 10:42-0500 Diastolic blood pressure 64 mm[Hg] Caity Cote VE TEACHER.CLIENT REPORTING ASSOCIATE Work Phone: [facility] 07-04-2024 10:42-0500 Heart rate 63 /min Caity Cote VE TEACHER.CLIENT REPORTING ASSOCIATE Work Phone: [facility] 07-04-2024 10:42-0500 SaO2% (BldA) [Mass fraction] 96 % Caity Cote VE TEACHER.CLIENT REPORTING ASSOCIATE Work Phone: [facility] 07-04-2024 10:42-0500 Systolic blood pressure 98 mm[Hg] Acity Cote VE TEACHER.CLIENT REPORTING ASSOCIATE Work Phone: [facility] 06-14-2024 13:32-0500 Body temperature 97.9 [degF] Treatment Wstr Work Phone: [facility] 06-14-2024 13:32-0500 Diastolic blood pressure 72 mm[Hg] Treatment Wstr Work Phone: [facility] 06-14-2024 13:32-0500 Heart rate 62 /min Treatment Wstr Work Phone: [facility] 06-14-2024 13:32-0500 Respiratory rate 18 /min Treatment Wstr Work Phone: [facility] 06-14-2024 13:32-0500 SaO2% (BldA) [Mass fraction] 96 % Treatment Wstr Work Phone: [facility] 06-14-2024 13:32-0500 Systolic blood pressure 130 mm[Hg] Treatment Wstr Work Phone: [facility] 06-13-2024 11:20-0500 Body mass index (BMI) [Ratio] 32.06 kg/m2 Rip Masci DO Work Phone: [facility] 06-13-2024 11:20-0500 Body temperature 98.2 [degF] Rip Masci DO Work Phone: [facility] 06-13-2024 11:20-0500 Body weight 78.93 kg Rip Masci DO Work Phone: [facility] 06-13-2024 11:20-0500 Diastolic blood pressure 73 mm[Hg] Rip Masci DO Work Phone: [facility] 06-13-2024 11:20-0500 Heart rate 61 /min Rip Masci DO Work Phone: [facility] 06-13-2024 11:20-0500 SaO2% (BldA) [Mass fraction] 97 % Rip Masci DO Work Phone: [facility] 06-13-2024 11:20-0500 Systolic blood pressure 120 mm[Hg] Rip Masci DO Work Phone: [facility] [facility] 06-13-2024 10:58-0500 Body mass index (BMI) [Ratio] 32.06 kg/m2 Lab/Port Wstr Work Phone: [facility] 06-13-2024 10:58-0500 Body weight 78.93 kg Lab/Port Wstr Work Phone: [facility] 05-24-2024 09:59-0500 Diastolic blood pressure 70 mm[Hg] Treatment Wstr Work Phone: [facility] 05-24-2024 09:59-0500 Heart rate 72 /min Treatment Wstr Work Phone: [facility] 05-24-2024 09:59-0500 Respiratory rate 18 /min Treatment Wstr Work Phone: [facility] 05-24-2024 09:59-0500 SaO2% (BldA) [Mass fraction] 97 % Treatment Wstr Work Phone: [facility] 05-24-2024 09:59-0500 Systolic blood pressure 130 mm[Hg] Treatment Wstr Work Phone: [facility] 05-23-2024 10:56-0500 Body mass index (BMI) [Ratio] 31.97 kg/m2 Rip Masci DO Work Phone: [facility] 05-23-2024 10:56-0500 Body temperature 98.2 [degF] Rip Masci DO Work Phone: [facility] 05-23-2024 10:56-0500 Body weight 78.7 kg Rip Masci DO Work Phone: [facility] 05-23-2024 10:56-0500 Diastolic blood pressure 79 mm[Hg] Rip Masci DO Work Phone: [facility] 05-23-2024 10:56-0500 Heart rate 77 /min Rip Masci DO Work Phone: [facility] 05-23-2024 10:56-0500 SaO2% (BldA) [Mass fraction] 97 % Rip Masci DO Work Phone: [facility] 05-23-2024 10:56-0500 Systolic blood pressure 125 mm[Hg] Rip Masci DO Work Phone: [facility] 05-23-2024 10:40-0500 Body mass index (BMI) [Ratio] 31.97 kg/m2 Lab/Port Wstr Work Phone: [facility] 05-23-2024 10:40-0500 Body weight 78.7 kg Lab/Port Wstr Work Phone: [facility] 05-04-2024 13:00-0500 Body temperature 97.7 [degF] Treatment Wstr Work Phone: [facility] 05-04-2024 13:00-0500 Diastolic blood pressure 67 mm[Hg] Treatment Wstr Work Phone: [facility] 05-04-2024 13:00-0500 Heart rate 72 /min Treatment Wstr Work Phone: [facility] 05-04-2024 13:00-0500 Systolic blood pressure 136 mm[Hg] Treatment Wstr Work Phone: [facility] 05-02-2024 10:01-0500 Body mass index (BMI) [Ratio] 32.24 kg/m2 Rip Masci DO Work Phone: [facility] 05-02-2024 10:01-0500 Body temperature 97.5 [degF] Rip Masci DO Work Phone: [facility] 05-02-2024 10:01-0500 Body weight 79.38 kg Rip Masci DO Work Phone: [facility] 05-02-2024 10:01-0500 Diastolic blood pressure 65 mm[Hg] Rip Masci DO Work Phone: [facility] 05-02-2024 10:01-0500 Heart rate 66 /min Rip Masci DO Work Phone: [facility] 05-02-2024 10:01-0500 SaO2% (BldA) [Mass fraction] 96 % Rip Masci DO Work Phone: [facility] 05-02-2024 10:01-0500 Systolic blood pressure 109 mm[Hg] Rip Masci DO Work Phone: [facility] 05-02-2024 09:44-0500 Body mass index (BMI) [Ratio] 32.24 kg/m2 Lab/Port Wstr Work Phone: [facility] 05-02-2024 09:44-0500 Body weight 79.38 kg Lab/Port Wstr Work Phone: [facility] 04-12-2024 09:09-0500 Body temperature 97.59 [degF] Treatment Wstr Work Phone: [facility] 04-12-2024 09:09-0500 Diastolic blood pressure 76 mm[Hg] Treatment Wstr Work Phone: [facility] 04-12-2024 09:09-0500 Heart rate 64 /min Treatment Wstr Work Phone: [facility] 04-12-2024 09:09-0500 Respiratory rate 18 /min Treatment Wstr Work Phone: [facility] 04-12-2024 09:09-0500 SaO2% (BldA) [Mass fraction] 97 % Treatment Wstr Work Phone: [facility] 04-12-2024 09:09-0500 Systolic blood pressure 124 mm[Hg] Treatment Wstr Work Phone: [facility] 04-11-2024 08:39-0500 Body mass index (BMI) [Ratio] 32.61 kg/m2 Lab/Port Wstr Work Phone: [facility] 04-11-2024 08:39-0500 Body temperature 98.29 [degF] Caity Cote VE TEACHER.CLIENT REPORTING ASSOCIATE Work Phone: [facility] 04-11-2024 08:39-0500 Body weight 80.29 kg Lab/Port Wstr Work Phone: [facility] 04-11-2024 08:39-0500 Diastolic blood pressure 73 mm[Hg] Caity Cote VE TEACHER.CLIENT REPORTING ASSOCIATE Work Phone: [facility] 04-11-2024 08:39-0500 Heart rate 60 /min Caity Cote VE TEACHER.CLIENT REPORTING ASSOCIATE Work Phone: [facility] 04-11-2024 08:39-0500 SaO2% (BldA) [Mass fraction] 94 % Caity Cote VE TEACHER.CLIENT REPORTING ASSOCIATE Work Phone: [facility] 04-11-2024 08:39-0500 Systolic blood pressure 110 mm[Hg] Caity Cote CLIENT REPORTING ASSOCIATE Work Phone: [facility] 03-22-2024 10:28-0400 Body temperature 98.4 [degF] Treatment Wstr Work Phone: [facility] 03-22-2024 10:28-0400 Diastolic blood pressure 73 mm[Hg] Treatment Wstr Work Phone: [facility] 03-22-2024 10:28-0400 Heart rate 75 /min Treatment Wstr Work Phone: [facility] 03-22-2024 10:28-0400 Respiratory rate 16 /min Treatment Wstr Work Phone: [facility] 03-22-2024 10:28-0400 SaO2% (BldA) [Mass fraction] 98 % Treatment Wstr Work Phone: [facility] 03-22-2024 10:28-0400 Systolic blood pressure 127 mm[Hg] Treatment Wstr Work Phone: [facility] 03-21-2024 07:48-0400 Body mass index (BMI) [Ratio] 32.98 kg/m2 Lab/Port Wstr Work Phone: [facility] 03-21-2024 07:48-0400 Body temperature 97.5 [degF] Rip Masci DO Work Phone: [facility] 03-21-2024 07:48-0400 Body weight 81.19 kg Lab/Port Wstr Work Phone: [facility] 03-21-2024 07:48-0400 Diastolic blood pressure 64 mm[Hg] Rip Masci DO Work Phone: [facility] 03-21-2024 07:48-0400 Heart rate 66 /min Rip Masci DO Work Phone: [facility] 03-21-2024 07:48-0400 SaO2% (BldA) [Mass fraction] 97 % Rip Masci DO Work Phone: [facility] 03-21-2024 07:48-0400 Systolic blood pressure 119 mm[Hg] Rip Silvestre DO Work Phone: [facility] 02-28-2024 08:01-0400 Body temperature 97.5 [degF] Treatment Wstr Work Phone: [facility] 02-28-2024 08:01-0400 Diastolic blood pressure 81 mm[Hg] Treatment Wstr Work Phone: [facility] 02-28-2024 08:01-0400 Heart rate 64 /min Treatment Wstr Work Phone: [facility] 02-28-2024 08:01-0400 SaO2% (BldA) [Mass fraction] 97 % Treatment Wstr Work Phone: [facility] 02-28-2024 08:01-0400 Systolic blood pressure 130 mm[Hg] Treatment Wstr Work Phone: [facility] 02-27-2024 10:48-0400 Body mass index (BMI) [Ratio] 32.9 kg/m2 Caity Cote VE TEACHER.CLIENT REPORTING ASSOCIATE Work Phone: [facility] 02-27-2024 10:48-0400 Body temperature 98.01 [degF] Caity Cote VE TEACHER.CLIENT REPORTING ASSOCIATE Work Phone: [facility] 02-27-2024 10:48-0400 Body weight 81 kg Caity Cote VE TEACHER.CLIENT REPORTING ASSOCIATE Work Phone: [facility] 02-27-2024 10:48-0400 Diastolic blood pressure 58 mm[Hg] Caity Cote VE TEACHER.CLIENT REPORTING ASSOCIATE Work Phone: [facility] 02-27-2024 10:48-0400 Heart rate 55 /min Caity Cote VE TEACHER.CLIENT REPORTING ASSOCIATE Work Phone: [facility] 02-27-2024 10:48-0400 SaO2% (BldA) [Mass fraction] 97 % Caity Cote VE TEACHER.CLIENT REPORTING ASSOCIATE Work Phone: [facility] 02-27-2024 10:48-0400 Systolic blood pressure 110 mm[Hg] Caity Cote VE TEACHER.CLIENT REPORTING ASSOCIATE Work Phone: [facility] 02-27-2024 10:13-0400 Body mass index (BMI) [Ratio] 32.89 kg/m2 Lab/Port Wstr Work Phone: [facility] 02-27-2024 10:13-0400 Body weight 80.97 kg Lab/Port Wstr Work Phone: [facility] 02-08-2024 08:20-0400 Body height 156.9 cm Treatment Wstr Work Phone: [facility] Comment on above: without shoes 02-08-2024 08:20-0400 Body temperature 97.81 [degF] Treatment Wstr Work Phone: [facility] 02-08-2024 08:20-0400 Diastolic blood pressure 74 mm[Hg] Treatment Wstr Work Phone: [facility] 02-08-2024 08:20-0400 Heart rate 62 /min Treatment Wstr Work Phone: [facility] 02-08-2024 08:20-0400 Respiratory rate 14 /min Treatment Wstr Work Phone: [facility] 02-08-2024 08:20-0400 SaO2% (BldA) [Mass fraction] 96 % Treatment Wstr Work Phone: [facility] 02-08-2024 08:20-0400 Systolic blood pressure 119 mm[Hg] Treatment Wstr Work Phone: [facility] 02-03-2024 09:32-0400 Body mass index (BMI) [Ratio] 33.44 kg/m2 Caity Cote VE TEACHER.CLIENT REPORTING ASSOCIATE Work Phone: [facility] 02-03-2024 09:32-0400 Body temperature 97.3 [degF] Caity Maryenter VE TEACHER.CLIENT REPORTING ASSOCIATE Work Phone: [facility] 02-03-2024 09:32-0400 Body weight 80.29 kg Dunlap Cote VE TEACHER.CLIENT REPORTING ASSOCIATE Work Phone: [facility] 02-03-2024 09:32-0400 Diastolic blood pressure 61 mm[Hg] Caity Cote VE TEACHER.CLIENT REPORTING ASSOCIATE Work Phone: [facility] 02-03-2024 09:32-0400 Heart rate 74 /min Dunlap Cote VE TEACHER.CLIENT REPORTING ASSOCIATE Work Phone: [facility] 02-03-2024 09:32-0400 SaO2% (BldA) [Mass fraction] 100 % Dunlap Cote VE TEACHER.CLIENT REPORTING ASSOCIATE Work Phone: [facility] 02-03-2024 09:32-0400 Systolic blood pressure 114 mm[Hg] Caity Maryenter VE TEACHER.CLIENT REPORTING ASSOCIATE Work Phone: [facility] 02-03-2024 09:20-0400 Body mass index (BMI) [Ratio] 33.44 kg/m2 Lab/Port Wstr Work Phone: [facility] 02-03-2024 09:20-0400 Body weight 80.29 kg Lab/Port Wstr Work Phone: [facility] 01-16-2024 09:01-0400 Body mass index (BMI) [Ratio] 33.35 kg/m2 Treatment Wstr Work Phone: [facility] 01-16-2024 09:01-0400 Body temperature 97.11 [degF] Treatment Wstr Work Phone: [facility] 01-16-2024 09:01-0400 Body weight 80.06 kg Treatment Wstr Work Phone: [facility] 01-16-2024 09:01-0400 Diastolic blood pressure 72 mm[Hg] Treatment Wstr Work Phone: [facility] 01-16-2024 09:01-0400 Heart rate 62 /min Treatment Wstr Work Phone: [facility] 01-16-2024 09:01-0400 SaO2% (BldA) [Mass fraction] 96 % Treatment Wstr Work Phone: [facility] 01-16-2024 09:01-0400 Systolic blood pressure 112 mm[Hg] Treatment Wstr Work Phone: [facility] 01-04-2024 09:50-0400 Body mass index (BMI) [Ratio] 33.63 kg/m2 Rip Jollyi DO Work Phone: [facility] 01-04-2024 09:50-0400 Body temperature 98.49 [degF] Rip Jollyi DO Work Phone: [facility] 01-04-2024 09:50-0400 Body weight 80.74 kg Rip Jollyi DO Work Phone: [facility] 01-04-2024 09:50-0400 Diastolic blood pressure 57 mm[Hg] Rip Jollyi DO Work Phone: [facility] 01-04-2024 09:50-0400 Heart rate 67 /min Rip Jollyi DO Work Phone: [facility] 01-04-2024 09:50-0400 SaO2% (BldA) [Mass fraction] 96 % Rip Jollyi DO Work Phone: [facility] 01-04-2024 09:50-0400 Systolic blood pressure 93 mm[Hg] Rip Jollyi DO Work Phone: [facility] 12-22-2023 10:49-0400 Diastolic blood pressure 77 mm[Hg] Treatment Wstr Work Phone: [facility] 12-22-2023 10:49-0400 Heart rate 66 /min Treatment Wstr Work Phone: [facility] 12-22-2023 10:49-0400 Systolic blood pressure 144 mm[Hg] Treatment Wstr Work Phone: [facility] 12-22-2023 09:47-0400 Body temperature 98.49 [degF] Treatment Wstr Work Phone: [facility] 12-22-2023 09:47-0400 Respiratory rate 22 /min Treatment Wstr Work Phone: [facility] 12-15-2023 14:00-0400 Body temperature 97.59 [degF] Treatment Wstr Work Phone: [facility] 12-15-2023 14:00-0400 Diastolic blood pressure 61 mm[Hg] Treatment Wstr Work Phone: [facility] 12-15-2023 14:00-0400 Heart rate 61 /min Treatment Wstr Work Phone: [facility] 12-15-2023 14:00-0400 SaO2% (BldA) [Mass fraction] 96 % Treatment Wstr Work Phone: [facility] 12-15-2023 14:00-0400 Systolic blood pressure 112 mm[Hg] Treatment Wstr Work Phone: [facility] 12-14-2023 11:16-0400 Body mass index (BMI) [Ratio] 33.63 kg/m2 Caity Cote VE TEACHER.CLIENT REPORTING ASSOCIATE Work Phone: [facility] 12-14-2023 11:16-0400 Body temperature 97.3 [degF] Caity Cote VE TEACHER.CLIENT REPORTING ASSOCIATE Work Phone: [facility] 12-14-2023 11:16-0400 Body weight 80.74 kg Dunlap Cote VE TEACHER.CLIENT REPORTING ASSOCIATE Work Phone: [facility] 12-14-2023 11:16-0400 Diastolic blood pressure 61 mm[Hg] Caity Cote VE TEACHER.CLIENT REPORTING ASSOCIATE Work Phone: [facility] 12-14-2023 11:16-0400 Heart rate 62 /min Caity Cote VE TEACHER.CLIENT REPORTING ASSOCIATE Work Phone: [facility] 12-14-2023 11:16-0400 SaO2% (BldA) [Mass fraction] 95 % Caity Cote VE TEACHER.CLIENT REPORTING ASSOCIATE Work Phone: [facility] 12-14-2023 11:16-0400 Systolic blood pressure 93 mm[Hg] Caity Cote VE TEACHER.CLIENT REPORTING ASSOCIATE Work Phone: [facility] 12-14-2023 10:52-0400 Body mass index (BMI) [Ratio] 33.63 kg/m2 Lab/Port Wstr Work Phone: [facility] 12-14-2023 10:52-0400 Body weight 80.74 kg Lab/Port Wstr Work Phone: [facility] 11-24-2023 14:00-0400 Body temperature 97.5 [degF] Treatment Wstr Work Phone: [facility] 11-24-2023 14:00-0400 Diastolic blood pressure 72 mm[Hg] Treatment Wstr Work Phone: [facility] 11-24-2023 14:00-0400 Heart rate 80 /min Treatment Wstr Work Phone: [facility] 11-24-2023 14:00-0400 Systolic blood pressure 109 mm[Hg] Treatment Wstr Work Phone: [facility] 11-23-2023 10:30-0400 Body mass index (BMI) [Ratio] 34.58 kg/m2 Irp Riki DO Work Phone: [facility] 11-23-2023 10:30-0400 Body temperature 98.49 [degF] Rip Masci DO Work Phone: [facility] 11-23-2023 10:30-0400 Body weight 83.01 kg Rip Masci DO Work Phone: [facility] 11-23-2023 10:30-0400 Diastolic blood pressure 63 mm[Hg] Rip Masci DO Work Phone: [facility] 11-23-2023 10:30-0400 Heart rate 60 /min Rip Masci DO Work Phone: [facility] 11-23-2023 10:30-0400 SaO2% (BldA) [Mass fraction] 96 % Rip Masci DO Work Phone: [facility] 11-23-2023 10:30-0400 Systolic blood pressure 117 mm[Hg] Rip Masci DO Work Phone: [facility] 11-03-2023 10:43-0400 Body temperature 97.5 [degF] Treatment Wstr Work Phone: [facility] 11-03-2023 10:43-0400 Diastolic blood pressure 71 mm[Hg] Treatment Wstr Work Phone: [facility] 11-03-2023 10:43-0400 Heart rate 56 /min Treatment Wstr Work Phone: [facility] 11-03-2023 10:43-0400 SaO2% (BldA) [Mass fraction] 95 % Treatment Wstr Work Phone: [facility] 11-03-2023 10:43-0400 Systolic blood pressure 122 mm[Hg] Treatment Wstr Work Phone: [facility] 11-02-2023 13:28-0400 Body mass index (BMI) [Ratio] 34.35 kg/m2 Caity Cote VE TEACHER.CLIENT REPORTING ASSOCIATE Work Phone: [facility] 11-02-2023 13:28-0400 Body temperature 99.3 [degF] Caity Cote VE TEACHER.CLIENT REPORTING ASSOCIATE Work Phone: [facility] 11-02-2023 13:28-0400 Body weight 82.46 kg Caity Cote VE TEACHER.CLIENT REPORTING ASSOCIATE Work Phone: [facility] 11-02-2023 13:28-0400 Diastolic blood pressure 72 mm[Hg] Caity Cote VE TEACHER.CLIENT REPORTING ASSOCIATE Work Phone: [facility] 11-02-2023 13:28-0400 Heart rate 63 /min Caity oCte VE TEACHER.CLIENT REPORTING ASSOCIATE Work Phone: [facility] 11-02-2023 13:28-0400 SaO2% (BldA) [Mass fraction] 96 % Caity Cote VE TEACHER.CLIENT REPORTING ASSOCIATE Work Phone: [facility] 11-02-2023 13:28-0400 Systolic blood pressure 113 mm[Hg] Dunlap Cote VE TEACHER.CLIENT REPORTING ASSOCIATE Work Phone: [facility] 11-02-2023 12:00-0400 Body mass index (BMI) [Ratio] 34.29 kg/m2 Lab/Port Wstr Work Phone: [facility] 11-02-2023 12:00-0400 Body weight 82.33 kg Lab/Port Wstr Work Phone: [facility] 10-13-2023 11:00-0400 Body temperature 98.2 [degF] Treatment Wstr Work Phone: [facility] 10-13-2023 11:00-0400 Diastolic blood pressure 56 mm[Hg] Treatment Wstr Work Phone: [facility] 10-13-2023 11:00-0400 Heart rate 65 /min Treatment Wstr Work Phone: [facility] 10-13-2023 11:00-0400 Systolic blood pressure 123 mm[Hg] Treatment Wstr Work Phone: [facility] 10-11-2023 10:22-0400 Body mass index (BMI) [Ratio] 34.29 kg/m2 Rip Riki DO Work Phone: [facility] 10-11-2023 10:22-0400 Body temperature 97.7 [degF] Rip Masci DO Work Phone: [facility] 10-11-2023 10:22-0400 Body weight 82.33 kg Rip Masci DO Work Phone: [facility] 10-11-2023 10:22-0400 Diastolic blood pressure 71 mm[Hg] Rip Masci DO Work Phone: [facility] 10-11-2023 10:22-0400 Heart rate 52 /min Rip Masci DO Work Phone: [facility] 10-11-2023 10:22-0400 SaO2% (BldA) [Mass fraction] 93 % Rip Masci DO Work Phone: [facility] 10-11-2023 10:22-0400 Systolic blood pressure 112 mm[Hg] Rip Masci DO Work Phone: [facility] 2023 13:56-0400 Body temperature 97.11 [degF] Meenu Garay MD Work Phone: [facility] 2023 13:56-0400 Diastolic blood pressure 73 mm[Hg] Meenu Garay MD Work Phone: [facility] 2023 13:56-0400 Heart rate 66 /min Meenu Garay MD Work Phone: [facility] 2023 13:56-0400 SaO2% (BldA) [Mass fraction] 97 % Meenu Garay MD Work Phone: [facility] 2023 13:56-0400 Systolic blood pressure 146 mm[Hg] Meenu Garay MD Work Phone: [facility] 09-22-2023 12:33-0400 Body temperature 98.91 [degF] Treatment Wstr Work Phone: [facility] 09-22-2023 12:33-0400 Diastolic blood pressure 64 mm[Hg] Treatment Wstr Work Phone: [facility] 09-22-2023 12:33-0400 Heart rate 63 /min Treatment Wstr Work Phone: [facility] 09-22-2023 12:33-0400 Respiratory rate 20 /min Treatment Wstr Work Phone: [facility] 09-22-2023 12:33-0400 Systolic blood pressure 120 mm[Hg] Treatment Wstr Work Phone: [facility] 09-21-2023 08:34-0400 Body temperature 98.6 [degF] Rip Masci DO Work Phone: [facility] 09-21-2023 08:34-0400 Body weight 82.33 kg Rip Masci DO Work Phone: [facility] 09-21-2023 08:34-0400 Diastolic blood pressure 82 mm[Hg] Rip Masci DO Work Phone: [facility] 09-21-2023 08:34-0400 Heart rate 76 /min Rip Masci DO Work Phone: [facility] 09-21-2023 08:34-0400 SaO2% (BldA) [Mass fraction] 95 % Rip Rivers DO Work Phone: [facility] 09-21-2023 08:34-0400 Systolic blood pressure 125 mm[Hg] Rip Jollyi DO Work Phone: [facility] 09-21-2023 08:19-0400 Body weight 82.33 kg Lab/Port Wstr Work Phone: [facility] 08-30-2023 09:02-0400 Body temperature 98.2 [degF] Rip Jollyi DO Work Phone: [facility] 08-30-2023 09:02-0400 Body weight 84.37 kg Lab/Port Wstr Work Phone: [facility] 08-30-2023 09:02-0400 Diastolic blood pressure 56 mm[Hg] Rip Jollyi DO Work Phone: [facility] 08-30-2023 09:02-0400 Heart rate 61 /min Rip Rivers DO Work Phone: [facility] 08-30-2023 09:02-0400 Systolic blood pressure 113 mm[Hg] Rip Jollyi DO Work Phone: [facility] 08-26-2023 09:20-0400 Body temperature 98.1 [degF] Meenu Garay MD Work Phone: [facility] 08-26-2023 09:20-0400 Body weight 86.18 kg Meenu Garay MD Work Phone: [facility] 08-26-2023 09:20-0400 Diastolic blood pressure 70 mm[Hg] Meenu Garay MD Work Phone: [facility] 08-26-2023 09:20-0400 Heart rate 62 /min Meenu Garay MD Work Phone: [facility] 08-26-2023 09:20-0400 SaO2% (BldA) [Mass fraction] 97 % Meenu Garay MD Work Phone: [facility] 08-26-2023 09:20-0400 Systolic blood pressure 115 mm[Hg] Meenu Garay MD Work Phone: [facility] 08-17-2023 00:49-0400 Body temperature 98.1 [degF] Dr. Williams Farrell Work Phone: [facility] 08-17-2023 00:49-0400 Diastolic blood pressure 89 mm[Hg] Dr. Williams Farrell Work Phone: [facility] 08-17-2023 00:49-0400 Heart rate 64 /min Dr. Williams Farrell Work Phone: [facility] 08-17-2023 00:49-0400 Respiratory rate 19 /min Dr. Williams Farrell Work Phone: [facility] 08-17-2023 00:49-0400 SaO2% (BldA) [Mass fraction] 94 % Dr. Williams Farrell Work Phone: [facility] 08-17-2023 00:49-0400 Systolic blood pressure 120 mm[Hg] Dr. Williams Farrell Work Phone: [facility] 08-16-2023 21:50-0400 Body height 154.[address] Williams Farrell Work Phone: [facility] 08-16-2023 21:50-0400 Body mass index (BMI) [Ratio] 35.6 kg/m2 Dr. Williams Farrell Work Phone: [facility] 08-16-2023 21:50-0400 Body weight 85.[address] Williams Farrell Work Phone: [facility] 08-11-2023 13:02-0500 Body temperature 97.7 [degF] Treatment Wstr Work Phone: [facility] 08-11-2023 13:02-0500 Diastolic blood pressure 54 mm[Hg] Treatment [facility]: [facility] [facility] 08-11-2023 13:02-0500 Heart rate 60 /min Treatment Wstr Work Phone: [facility] 08-11-2023 13:02-0500 SaO2% (BldA) [Mass fraction] 97 % Treatment Wstr Work Phone: [facility] 08-11-2023 13:02-0500 Systolic blood pressure 106 mm[Hg] Treatment Wstr Work Phone: [facility] 08-10-2023 09:43-0500 Body temperature 97.7 [degF] Rip Masci DO Work Phone: [facility] 08-10-2023 09:43-0500 Body weight 86.18 kg Rip Masci DO Work Phone: [facility] 08-10-2023 09:43-0500 Diastolic blood pressure 76 mm[Hg] Rip Masci DO Work Phone: [facility] 08-10-2023 09:43-0500 Heart rate 64 /min Rip Masci DO Work Phone: [facility] 08-10-2023 09:43-0500 SaO2% (BldA) [Mass fraction] 98 % Rip Masci DO Work Phone: [facility] 08-10-2023 09:43-0500 Systolic blood pressure 127 mm[Hg] Rip Masci DO Work Phone: [facility] 08-10-2023 09:26-0500 Body weight 86.18 kg Lab/Port Wstr Work Phone: [facility] 07-21-2023 13:45-0500 Body temperature 97.39 [degF] Treatment Wstr Work Phone: [facility] 07-21-2023 13:45-0500 Diastolic blood pressure 60 mm[Hg] Treatment Wstr Work Phone: [facility] 07-21-2023 13:45-0500 Heart rate 64 /min Treatment Wstr Work Phone: [facility] 07-21-2023 13:45-0500 SaO2% (BldA) [Mass fraction] 97 % Treatment Wstr Work Phone: [facility] 07-21-2023 13:45-0500 Systolic blood pressure 120 mm[Hg] Treatment Wstr Work Phone: [facility] 07-20-2023 10:19-0500 Body temperature 97.2 [degF] Dunlap Cote VE TEACHER.CLIENT REPORTING ASSOCIATE Work Phone: [facility] 07-20-2023 10:19-0500 Body weight 84.37 kg Dunlap Cote VE TEACHER.CLIENT REPORTING ASSOCIATE Work Phone: [facility] 07-20-2023 10:19-0500 Diastolic blood pressure 63 mm[Hg] Caity Cote VE TEACHER.CLIENT REPORTING ASSOCIATE Work Phone: [facility] 07-20-2023 10:19-0500 Heart rate 61 /min Dunlap Cote VE TEACHER.CLIENT REPORTING ASSOCIATE Work Phone: [facility] 07-20-2023 10:19-0500 SaO2% (BldA) [Mass fraction] 97 % Caity Cote VE TEACHER.CLIENT REPORTING ASSOCIATE Work Phone: [facility] 07-20-2023 10:19-0500 Systolic blood pressure 112 mm[Hg] Caity Cote VE TEACHER.CLIENT REPORTING ASSOCIATE Work Phone: [facility] 06-16-2023 09:29-0500 Body height 154.9 cm Williams Oberhauser DO Work Phone: [facility] 06-16-2023 09:29-0500 Body mass index (BMI) [Ratio] 35.52 kg/m2 Williams Oberhauser DO Work Phone: [facility] 06-16-2023 09:29-0500 Body weight 85.28 kg Williams Oberhauser DO Work Phone: [facility] 06-16-2023 09:29-0500 Diastolic blood pressure 66 mm[Hg] Williams Oberhauser DO Work Phone: [facility] 06-16-2023 09:29-0500 Heart rate 67 /min Williams Farrell DO Work Phone: [facility] 06-16-2023 09:29-0500 Systolic blood pressure 102 mm[Hg] Williams Farrell DO Work Phone: [facility] 05-27-2023 09:35-0500 Body height 154.[address] Mitch Mejia Work Phone: [facility] 05-27-2023 09:35-0500 Body mass index (BMI) [Ratio] 36.1 kg/m2 Dr. Mitch Mejia Work Phone: [facility] 05-27-2023 09:35-0500 Body weight 86.[address] Mitch Mejia Work Phone: [facility] 05-27-2023 09:35-0500 Diastolic blood pressure 61 mm[Hg] Dr. Mitch Mejia Work Phone: [facility] 05-27-2023 09:35-0500 Heart rate 66 /min Dr. Mitch Mejia Work Phone: [facility] 05-27-2023 09:35-0500 Respiratory rate 18 /min Dr. Mitch Mejia Work Phone: [facility] 05-27-2023 09:35-0500 SaO2% (BldA) [Mass fraction] 95 % Dr. Mitch Mejia Work Phone: [facility] 05-27-2023 09:35-0500 Systolic blood pressure 103 mm[Hg] Dr. Mitch Mejia Work Phone: [facility] 04-27-2023 09:00-0500 Body temperature 98.1 [degF] Treatment Wstr Work Phone: [facility] 04-27-2023 09:00-0500 Diastolic blood pressure 55 mm[Hg] Treatment Wstr Work Phone: [facility] 04-27-2023 09:00-0500 Heart rate 70 /min Treatment Wstr Work Phone: [facility] 04-27-2023 09:00-0500 Systolic blood pressure 129 mm[Hg] Treatment Wstr Work Phone: [facility] 04-26-2023 09:19-0500 Body temperature 97.59 [degF] Rip Riki DO Work Phone: [facility] 04-26-2023 09:19-0500 Body weight 87.09 kg Lab/Port Wstr Work Phone: [facility] 04-26-2023 09:19-0500 Diastolic blood pressure 70 mm[Hg] Rip Masci DO Work Phone: [facility] 04-26-2023 09:19-0500 Heart rate 64 /min Rip Masci DO Work Phone: [facility] 04-26-2023 09:19-0500 SaO2% (BldA) [Mass fraction] 96 % Rip Masci DO Work Phone: [facility] 04-26-2023 09:19-0500 Systolic blood pressure 128 mm[Hg] Rip Masci DO Work Phone: [facility] 04-06-2023 08:39-0400 Body temperature 97.59 [degF] Caity Cote VE TEACHER.CLIENT REPORTING ASSOCIATE Work Phone: [facility] 04-06-2023 08:39-0400 Body weight 88 kg Caity Cote VE TEACHER.CLIENT REPORTING ASSOCIATE Work Phone: [facility] 04-06-2023 08:39-0400 Diastolic blood pressure 78 mm[Hg] Dunlap Cote VE TEACHER.CLIENT REPORTING ASSOCIATE Work Phone: [facility] 04-06-2023 08:39-0400 Heart rate 78 /min Dunlap Cote VE TEACHER.CLIENT REPORTING ASSOCIATE Work Phone: [facility] 04-06-2023 08:39-0400 SaO2% (BldA) [Mass fraction] 99 % Dunlap Cote VE TEACHER.CLIENT REPORTING ASSOCIATE Work Phone: [facility] 04-06-2023 08:39-0400 Systolic blood pressure 117 mm[Hg] Caity Cote APRNPabloCLIENT REPORTING ASSOCIATE Work Phone: [facility] 03-17-2023 13:25-0400 Body temperature 97 [degF] Treatment Wstr Work Phone: [facility] 03-17-2023 13:25-0400 Diastolic blood pressure 66 mm[Hg] Treatment Wstr Work Phone: [facility] 03-17-2023 13:25-0400 Heart rate 59 /min Treatment Wstr Work Phone: [facility] 03-17-2023 13:25-0400 Systolic blood pressure 129 mm[Hg] Treatment Wstr Work Phone: [facility] 03-16-2023 09:00-0400 Body weight 87.54 kg Lab/Port Wstr Work Phone: [facility] 02-23-2023 10:41-0400 Body temperature 99 [degF] Meenu Garay MD, MD Work Phone: [facility] 02-23-2023 10:41-0400 Body weight 85.64 kg Meenu Garay MD, MD Work Phone: [facility] 02-23-2023 10:41-0400 Diastolic blood pressure 78 mm[Hg] Meenu Garay MD, MD Work Phone: [facility] 02-23-2023 10:41-0400 Heart rate 62 /min Meenu Garay MD, MD Work Phone: [facility] 02-23-2023 10:41-0400 SaO2% (BldA) [Mass fraction] 95 % Meenu Garay MD, MD Work Phone: [facility] 02-23-2023 10:41-0400 Systolic blood pressure 121 mm[Hg] Meenu Garay MD, MD Work Phone: [facility] 02-23-2023 09:47-0400 Body temperature 99 [degF] Rip Rivers DO Work Phone: [facility] 02-23-2023 09:47-0400 Body weight 85.5 kg Rip Masci DO Work Phone: [facility] 02-23-2023 09:47-0400 Diastolic blood pressure 78 mm[Hg] Rip Masci DO Work Phone: [facility] 02-23-2023 09:47-0400 Heart rate 62 /min Rip Jollyi DO Work Phone: [facility] 02-23-2023 09:47-0400 SaO2% (BldA) [Mass fraction] 95 % Rip Riki DO Work Phone: [facility] 02-23-2023 09:47-0400 Systolic blood pressure 121 mm[Hg] Rip Riki DO Work Phone: [facility] 02-23-2023 09:31-0400 Body weight 85.5 kg Lab/Port Wstr Work Phone: [facility] 02-17-2023 15:18-0400 SaO2% (BldA) [Mass fraction] 92 % Dr. Mitch Mejia Work Phone: [facility] 02-17-2023 14:00-0400 Body temperature 98.2 [degF] Dr. Mitch Mejia Work Phone: [facility] 02-17-2023 14:00-0400 Diastolic blood pressure 57 mm[Hg] Dr. Mitch Mejia Work Phone: [facility] 02-17-2023 14:00-0400 Heart rate 65 /min Dr. Mitch Mejia Work Phone: [facility] 02-17-2023 14:00-0400 Respiratory rate 16 /min Dr. Mitch Mejia Work Phone: [facility] 02-17-2023 14:00-0400 Systolic blood pressure 116 mm[Hg] Dr. Mitch Mejia Work Phone: [facility] 02-17-2023 01:40-0400 Body height 154.[address] Mitch Mejia Work Phone: [facility] 02-17-2023 01:40-0400 Body mass index (BMI) [Ratio] 34.1 kg/m2 Dr. Mitch Mejia Work Phone: [facility] 02-17-2023 01:40-0400 Body weight 81.[address] Mitch Mejia Work Phone: [facility] 02-16-2023 23:46-0400 Body temperature 97.9 [degF] Dr. Mitch Mejia Work Phone: [facility] 02-16-2023 23:46-0400 Diastolic blood pressure 69 mm[Hg] Dr. Mitch Mejia Work Phone: [facility] 02-16-2023 23:46-0400 Heart rate 58 /min Dr. Mitch Mejia Work Phone: [facility] 02-16-2023 23:46-0400 Respiratory rate 20 /min Dr. Mitch Mejia Work Phone: [facility] 02-16-2023 23:46-0400 SaO2% (BldA) [Mass fraction] 98 % Dr. Mitch Mejia Work Phone: [facility] 02-16-2023 23:46-0400 Systolic blood pressure 144 mm[Hg] Dr. Mitch Mejia Work Phone: [facility] 02-16-2023 18:09-0400 Body height 154.[address] Mitch Mejia Work Phone: [facility] 02-16-2023 18:09-0400 Body mass index (BMI) [Ratio] 36.1 kg/m2 Dr. Mitch Mejia Work Phone: [facility] 02-16-2023 18:09-0400 Body weight 86.[address] Mitch Mejia Work Phone: [facility] 02-03-2023 09:33-0400 Body temperature 98.91 [degF] Meenu Garay MD, MD Work Phone: [facility] 02-03-2023 09:33-0400 Body weight 85.73 kg Meenu Garay MD, MD Work Phone: [facility] 02-03-2023 09:33-0400 Diastolic blood pressure 88 mm[Hg] Meenu Garay MD, MD Work Phone: [facility] 02-03-2023 09:33-0400 Heart rate 63 /min Meenu Garay MD, MD Work Phone: [facility] 02-03-2023 09:33-0400 Respiratory rate 15 /min Meenu Garay MD, MD Work Phone: [facility] 02-03-2023 09:33-0400 SaO2% (BldA) [Mass fraction] 97 % Meenu Garay MD, MD Work Phone: [facility] 02-03-2023 09:33-0400 Systolic blood pressure 122 mm[Hg] Meenu Garay MD, MD Work Phone: [facility] 02-02-2023 08:35-0400 Body weight 85.73 kg Lab/Port Wstr Work Phone: [facility] 01-13-2023 13:00-0400 Body temperature 98.01 [degF] Treatment Wstr Work Phone: [facility] 01-13-2023 13:00-0400 Diastolic blood pressure 53 mm[Hg] Treatment Wstr Work Phone: [facility] 01-13-2023 13:00-0400 Heart rate 66 /min Treatment Wstr Work Phone: [facility] 01-13-2023 13:00-0400 Systolic blood pressure 112 mm[Hg] Treatment Wstr Work Phone: [facility] 01-12-2023 09:33-0400 Body temperature 97.9 [degF] Rip Rivers DO Work Phone: [facility] 01-12-2023 09:33-0400 Body weight 85.5 kg Rip Masci DO Work Phone: [facility] 01-12-2023 09:33-0400 Diastolic blood pressure 68 mm[Hg] Rip Masci DO Work Phone: [facility] 01-12-2023 09:33-0400 Heart rate 66 /min Rip Masci DO Work Phone: [facility] 01-12-2023 09:33-0400 SaO2% (BldA) [Mass fraction] 95 % Rip Masci DO Work Phone: [facility] 01-12-2023 09:33-0400 Systolic blood pressure 110 mm[Hg] Rip Masci DO Work Phone: [facility] 12-22-2022 09:53-0400 Body temperature 98.1 [degF] Rip Masci DO Work Phone: [facility] 12-22-2022 09:53-0400 Body weight 84.6 kg Rip Masci DO Work Phone: [facility] 12-22-2022 09:53-0400 Diastolic blood pressure 64 mm[Hg] Rip Masci DO Work Phone: [facility] 12-22-2022 09:53-0400 Heart rate 61 /min Rip Masci DO Work Phone: [facility] 12-22-2022 09:53-0400 SaO2% (BldA) [Mass fraction] 97 % Rip Masci DO Work Phone: [facility] 12-22-2022 09:53-0400 Systolic blood pressure 119 mm[Hg] Rip Masci DO Work Phone: [facility] 12-02-2022 09:12-0400 Body temperature 97.59 [degF] Treatment Wstr Work Phone: [facility] 12-02-2022 09:12-0400 Diastolic blood pressure 59 mm[Hg] Treatment Wstr Work Phone: [facility] 12-02-2022 09:12-0400 Heart rate 63 /min Treatment Wstr Work Phone: [facility] 12-02-2022 09:12-0400 Respiratory rate 16 /min Treatment Wstr Work Phone: [facility] 12-02-2022 09:12-0400 SaO2% (BldA) [Mass fraction] 94 % Treatment Wstr Work Phone: [facility] 12-02-2022 09:12-0400 Systolic blood pressure 114 mm[Hg] Treatment Wstr Work Phone: [facility] 12-01-2022 07:57-0400 Body temperature 98.01 [degF] Rip Masci DO Work Phone: [facility] 12-01-2022 07:57-0400 Body weight 86.64 kg Rip Masci DO Work Phone: [facility] 12-01-2022 07:57-0400 Diastolic blood pressure 56 mm[Hg] Rip Masci DO Work Phone: [facility] 12-01-2022 07:57-0400 Heart rate 59 /min Rip Masci DO Work Phone: [facility] 12-01-2022 07:57-0400 SaO2% (BldA) [Mass fraction] 95 % Rip Masci DO Work Phone: [facility] 12-01-2022 07:57-0400 Systolic blood pressure 110 mm[Hg] Rip Masci DO Work Phone: [facility] 11-26-2022 11:14-0400 Body height 154.[address] Mitch Mejia Work Phone: [facility] 11-26-2022 11:14-0400 Body mass index (BMI) [Ratio] 35.6 kg/m2 Dr. Mitch Mejia Work Phone: [facility] 11-26-2022 11:14-0400 Body weight 85.[address] Mitch Mejia Work Phone: [facility] 11-26-2022 11:14-0400 Diastolic blood pressure 65 mm[Hg] Dr. Mitch Mejia Work Phone: [facility] 11-26-2022 11:14-0400 Heart rate 60 /min Dr. Mitch Mejia Work Phone: [facility] 11-26-2022 11:14-0400 Respiratory rate 18 /min Dr. Mitch Mejia Work Phone: [facility] 11-26-2022 11:14-0400 Systolic blood pressure 100 mm[Hg] Dr. Mitch Mejia Work Phone: [facility] 11-11-2022 08:00-0400 Body temperature 98.4 [degF] Treatment Wstr Work Phone: [facility] 11-11-2022 08:00-0400 Diastolic blood pressure 49 mm[Hg] Treatment Wstr Work Phone: [facility] 11-11-2022 08:00-0400 Heart rate 111 /min Treatment Wstr Work Phone: [facility] 11-11-2022 08:00-0400 Respiratory rate 18 /min Treatment Wstr Work Phone: [facility] 11-11-2022 08:00-0400 SaO2% (BldA) [Mass fraction] 100 % Treatment Wstr Work Phone: [facility] 11-11-2022 08:00-0400 Systolic blood pressure 103 mm[Hg] Treatment Wstr Work Phone: [facility] 11-10-2022 09:52-0400 Body height 154.9 cm Rip Riki DO Work Phone: [facility] 11-10-2022 09:52-0400 Body temperature 98.4 [degF] Rip Masci DO Work Phone: [facility] 11-10-2022 09:52-0400 Body weight 85.73 kg Rip Masci DO Work Phone: [facility] 11-10-2022 09:52-0400 Diastolic blood pressure 56 mm[Hg] Rip Masci DO Work Phone: [facility] 11-10-2022 09:52-0400 Heart rate 68 /min Rip Masci DO Work Phone: [facility] 11-10-2022 09:52-0400 Respiratory rate 12 /min Rip Masci DO Work Phone: [facility] 11-10-2022 09:52-0400 SaO2% (BldA) [Mass fraction] 95 % Rip Masci DO Work Phone: [facility] 11-10-2022 09:52-0400 Systolic blood pressure 106 mm[Hg] Rip Masci DO Work Phone: [facility] 11-10-2022 09:41-0400 Body weight 85.73 kg Lab/Port Wstr Work Phone: [facility] 10-20-2022 10:02-0400 Body temperature 98.4 [degF] Rip Masci DO Work Phone: [facility] 10-20-2022 10:02-0400 Body weight 86.18 kg Rip Masci DO Work Phone: [facility] 10-20-2022 10:02-0400 Diastolic blood pressure 61 mm[Hg] Rip Masci DO Work Phone: [facility] 10-20-2022 10:02-0400 Heart rate 60 /min Rip Masci DO Work Phone: [facility] 10-20-2022 10:02-0400 SaO2% (BldA) [Mass fraction] 94 % Rip Masci DO Work Phone: [facility] 10-20-2022 10:02-0400 Systolic blood pressure 119 mm[Hg] Rip Masci DO Work Phone: [facility] 09-30-2022 12:45-0400 Body temperature 96.91 [degF] Treatment Wstr Work Phone: [facility] 09-30-2022 12:45-0400 Diastolic blood pressure 59 mm[Hg] Treatment Wstr Work Phone: [facility] 09-30-2022 12:45-0400 Heart rate 56 /min Treatment Wstr Work Phone: [facility] 09-30-2022 12:45-0400 Systolic blood pressure 118 mm[Hg] Treatment Wstr Work Phone: [facility] 09-30-2022 12:28-0400 Body weight 85.28 kg Treatment Wstr Work Phone: [facility] 09-09-2022 09:00-0400 Body temperature 98.01 [degF] Treatment Wstr Work Phone: [facility] 09-09-2022 09:00-0400 Diastolic blood pressure 53 mm[Hg] Treatment Wstr Work Phone: [facility] 09-09-2022 09:00-0400 Heart rate 62 /min Treatment Wstr Work Phone: [facility] 09-09-2022 09:00-0400 SaO2% (BldA) [Mass fraction] 96 % Treatment Wstr Work Phone: [facility] 09-09-2022 09:00-0400 Systolic blood pressure 106 mm[Hg] Treatment Wstr Work Phone: [facility] 09-08-2022 11:38-0400 Body weight 86.41 kg Rip Masci DO Work Phone: [facility] 09-08-2022 11:38-0400 Diastolic blood pressure 62 mm[Hg] Rip Masci DO Work Phone: [facility] 09-08-2022 11:38-0400 Heart rate 64 /min Rip Masci DO Work Phone: [facility] 09-08-2022 11:38-0400 SaO2% (BldA) [Mass fraction] 97 % Rip Masci DO Work Phone: [facility] 09-08-2022 11:38-0400 Systolic blood pressure 114 mm[Hg] Rip Masci DO Work Phone: [facility] 08-18-2022 10:06-0400 Body height 156.2 cm Rip Masci DO Work Phone: [facility] 08-18-2022 10:06-0400 Body temperature 98.49 [degF] Rip Masci DO Work Phone: [facility] 08-18-2022 10:06-0400 Body weight 85.73 kg Rip Masci DO Work Phone: [facility] 08-18-2022 10:06-0400 Diastolic blood pressure 60 mm[Hg] Rip Masci DO Work Phone: [facility] 08-18-2022 10:06-0400 Heart rate 63 /min Rip Masci DO Work Phone: [facility] 08-18-2022 10:06-0400 Systolic blood pressure 124 mm[Hg] Rip Masci DO Work Phone: [facility] 07-29-2022 08:33-0500 Body temperature 97.59 [degF] Caity Cote VE TEACHER.CLIENT REPORTING ASSOCIATE Work Phone: [facility] 07-29-2022 08:33-0500 Body weight 86.18 kg Caity Cote VE TEACHER.CLIENT REPORTING ASSOCIATE Work Phone: [facility] 07-29-2022 08:33-0500 Diastolic blood pressure 56 mm[Hg] Dunlap Cote VE TEACHER.CLIENT REPORTING ASSOCIATE Work Phone: [facility] 07-29-2022 08:33-0500 Heart rate 69 /min Dunlap Cote VE TEACHER.CLIENT REPORTING ASSOCIATE Work Phone: [facility] 07-29-2022 08:33-0500 Systolic blood pressure 119 mm[Hg] Caity Cote VE TEACHER.CLIENT REPORTING ASSOCIATE Work Phone: [facility] 07-08-2022 09:00-0500 Body temperature 96.49 [degF] Treatment Wstr Work Phone: [facility] 07-08-2022 09:00-0500 Diastolic blood pressure 63 mm[Hg] Treatment Wstr Work Phone: [facility] 07-08-2022 09:00-0500 Heart rate 61 /min Treatment Wstr Work Phone: [facility] 07-08-2022 09:00-0500 SaO2% (BldA) [Mass fraction] 97 % Treatment Wstr Work Phone: [facility] 07-08-2022 09:00-0500 Systolic blood pressure 126 mm[Hg] Treatment Wstr Work Phone: [facility] 07-06-2022 08:11-0500 Body temperature 98.4 [degF] Rip Masci DO Work Phone: [facility] 07-06-2022 08:11-0500 Body weight 86.86 kg Lab/Port Wstr Work Phone: [facility] 07-06-2022 08:11-0500 Diastolic blood pressure 66 mm[Hg] Rip Masci DO Work Phone: [facility] 07-06-2022 08:11-0500 Heart rate 60 /min Rip Masci DO Work Phone: [facility] 07-06-2022 08:11-0500 Systolic blood pressure 112 mm[Hg] Rip Masci DO Work Phone: [facility] 06-17-2022 10:00-0500 Body temperature 98.2 [degF] Treatment Wstr Work Phone: [facility] 06-17-2022 10:00-0500 Diastolic blood pressure 56 mm[Hg] Treatment Wstr Work Phone: [facility] 06-17-2022 10:00-0500 Heart rate 63 /min Treatment Wstr Work Phone: [facility] 06-17-2022 10:00-0500 Systolic blood pressure 115 mm[Hg] Treatment Wstr Work Phone: [facility] 06-15-2022 08:33-0500 Body temperature 97.81 [degF] Caity Cote APRN.CLIENT REPORTING ASSOCIATE Work Phone: [facility] 06-15-2022 08:33-0500 Body weight 84.6 kg Caity Cote VE TEACHER.CLIENT REPORTING ASSOCIATE Work Phone: [facility] 06-15-2022 08:33-0500 Diastolic blood pressure 68 mm[Hg] Caity Cote VE TEACHER.CLIENT REPORTING ASSOCIATE Work Phone: [facility] 06-15-2022 08:33-0500 Heart rate 64 /min Dunlap Cote VE TEACHER.CLIENT REPORTING ASSOCIATE Work Phone: [facility] 06-15-2022 08:33-0500 Systolic blood pressure 124 mm[Hg] Dunlap Cote VE TEACHER.CLIENT REPORTING ASSOCIATE Work Phone: [facility] 06-15-2022 08:21-0500 Body weight 84.6 kg Lab/Port Wstr Work Phone: [facility] 05-27-2022 10:39-0500 Body temperature 98.6 [degF] Treatment Wstr Work Phone: [facility] 05-27-2022 10:39-0500 Diastolic blood pressure 60 mm[Hg] Treatment Wstr Work Phone: [facility] 05-27-2022 10:39-0500 Heart rate 64 /min Treatment Wstr Work Phone: [facility] 05-27-2022 10:39-0500 Systolic blood pressure 115 mm[Hg] Treatment Wstr Work Phone: [facility] 05-25-2022 08:09-0500 Body temperature 98.4 [degF] Rip Masci DO Work Phone: [facility] 05-25-2022 08:09-0500 Body weight 85.73 kg Rip Masci DO Work Phone: [facility] 05-25-2022 08:09-0500 Diastolic blood pressure 61 mm[Hg] Rip Masci DO Work Phone: [facility] 05-25-2022 08:09-0500 Heart rate 58 /min Rip Masci DO Work Phone: [facility] 05-25-2022 08:09-0500 SaO2% (BldA) [Mass fraction] 96 % Rip Rivers DO Work Phone: [facility] 05-25-2022 08:09-0500 Systolic blood pressure 126 mm[Hg] Rip Rivers DO Work Phone: [facility] 05-06-2022 10:32-0500 Body temperature 97 [degF] Treatment Wstr Work Phone: [facility] 05-06-2022 10:32-0500 Diastolic blood pressure 78 mm[Hg] Treatment Wstr Work Phone: [facility] 05-06-2022 10:32-0500 Heart rate 62 /min Treatment Wstr Work Phone: [facility] 05-06-2022 10:32-0500 Systolic blood pressure 130 mm[Hg] Treatment Wstr Work Phone: [facility] 04-15-2022 10:28-0500 Body temperature 97.59 [degF] Treatment Wstr Work Phone: [facility] 04-15-2022 10:28-0500 Diastolic blood pressure 60 mm[Hg] Treatment Wstr Work Phone: [facility] 04-15-2022 10:28-0500 Heart rate 60 /min Treatment Wstr Work Phone: [facility] 04-15-2022 10:28-0500 Systolic blood pressure 128 mm[Hg] Treatment Wstr Work Phone: [facility] 04-14-2022 09:16-0500 Body temperature 97.39 [degF] Caity Cote APRN.CLIENT REPORTING ASSOCIATE Work Phone: [facility] 04-14-2022 09:16-0500 Body weight 85.28 kg Lab/Port Wstr Work Phone: [facility] 04-14-2022 09:16-0500 Diastolic blood pressure 69 mm[Hg] Caity Cote APRN.CLIENT REPORTING ASSOCIATE Work Phone: [facility] 04-14-2022 09:16-0500 Heart rate 61 /min Caity Cote APRN.CLIENT REPORTING ASSOCIATE Work Phone: [facility] 04-14-2022 09:16-0500 Systolic blood pressure 127 mm[Hg] Caity Cote APRN.CLIENT REPORTING ASSOCIATE Work Phone: [facility] 04-06-2022 08:46-0400 Body height 154.[address] Mitch Mejia Work Phone: [facility] 04-06-2022 08:46-0400 Body mass index (BMI) [Ratio] 35.5 kg/m2 Dr. Mitch Mejia Work Phone: [facility] 04-06-2022 08:46-0400 Body weight 85.[address] Mitch Mejia Work Phone: [facility] 04-06-2022 08:46-0400 Diastolic blood pressure 79 mm[Hg] Dr. Mitch Mejia Work Phone: [facility] 04-06-2022 08:46-0400 Heart rate 58 /min Dr. Mitch Mejia Work Phone: [facility] 04-06-2022 08:46-0400 Respiratory rate 16 /min Dr. Mitch Mejia Work Phone: [facility] 04-06-2022 08:46-0400 SaO2% (BldA) [Mass fraction] 100 % Dr. Mitch Mejia Work Phone: [facility] 04-06-2022 08:46-0400 Systolic blood pressure 140 mm[Hg] Dr. Mitch Mejia Work Phone: [facility] 03-18-2022 11:02-0400 Body temperature 97.59 [degF] Treatment Wstr Work Phone: [facility] 03-18-2022 11:02-0400 Body weight 84.82 kg Treatment Wstr Work Phone: [facility] 03-18-2022 11:02-0400 Diastolic blood pressure 60 mm[Hg] Treatment Wstr Work Phone: [facility] 03-18-2022 11:02-0400 Heart rate 62 /min Treatment Wstr Work Phone: [facility] 03-18-2022 11:02-0400 Systolic blood pressure 112 mm[Hg] Treatment Wstr Work Phone: [facility] 02-25-2022 08:44-0400 Body temperature 98.01 [degF] Treatment Wstr Work Phone: [facility] 02-25-2022 08:44-0400 Diastolic blood pressure 61 mm[Hg] Treatment Wstr Work Phone: [facility] 02-25-2022 08:44-0400 Heart rate 62 /min Treatment Wstr Work Phone: [facility] 02-25-2022 08:44-0400 Systolic blood pressure 120 mm[Hg] Treatment Wstr Work Phone: [facility] 02-24-2022 09:10-0400 Body temperature 98.4 [degF] Dunlap Cote VE TEACHER.CLIENT REPORTING ASSOCIATE Work Phone: [facility] 02-24-2022 09:10-0400 Body weight 83.46 kg Caity Cote VE TEACHER.CLIENT REPORTING ASSOCIATE Work Phone: [facility] 02-24-2022 09:10-0400 Diastolic blood pressure 65 mm[Hg] Dunlap Cote VE TEACHER.CLIENT REPORTING ASSOCIATE Work Phone: [facility] 02-24-2022 09:10-0400 Heart rate 64 /min Dunlap Cote VE TEACHER.CLIENT REPORTING ASSOCIATE Work Phone: [facility] 02-24-2022 09:10-0400 Systolic blood pressure 110 mm[Hg] Caity Cote VE TEACHER.CLIENT REPORTING ASSOCIATE Work Phone: [facility] 02-04-2022 10:50-0400 Body temperature 98.1 [degF] Treatment Wstr Work Phone: [facility] 02-04-2022 10:50-0400 Diastolic blood pressure 66 mm[Hg] Treatment Wstr Work Phone: [facility] 02-04-2022 10:50-0400 Heart rate 65 /min Treatment Wstr Work Phone: [facility] 02-04-2022 10:50-0400 Respiratory rate 16 /min Treatment Wstr Work Phone: [facility] 02-04-2022 10:50-0400 Systolic blood pressure 127 mm[Hg] Treatment Wstr Work Phone: [facility] 02-03-2022 09:16-0400 Body temperature 98.29 [degF] Rip Masci DO Work Phone: [facility] 02-03-2022 09:16-0400 Body weight 83.23 kg Lab/Port Wstr Work Phone: [facility] 02-03-2022 09:16-0400 Diastolic blood pressure 60 mm[Hg] Rip Masci DO Work Phone: [facility] 02-03-2022 09:16-0400 Heart rate 66 /min Rip Masci DO Work Phone: [facility] 02-03-2022 09:16-0400 Systolic blood pressure 98 mm[Hg] Rip Masci DO Work Phone: [facility] 01-14-2022 08:49-0400 Body temperature 98.01 [degF] Treatment Wstr Work Phone: [facility] 01-14-2022 08:49-0400 Body weight 81.87 kg Treatment Wstr Work Phone: [facility] 01-14-2022 08:49-0400 Diastolic blood pressure 68 mm[Hg] Treatment Wstr Work Phone: [facility] 01-14-2022 08:49-0400 Heart rate 60 /min Treatment Wstr Work Phone: [facility] 01-14-2022 08:49-0400 Systolic blood pressure 134 mm[Hg] Treatment Wstr Work Phone: [facility] 12-24-2021 09:00-0400 Body temperature 97.9 [degF] Treatment Wstr Work Phone: [facility] 12-24-2021 09:00-0400 Diastolic blood pressure 56 mm[Hg] Treatment Wstr Work Phone: [facility] 12-24-2021 09:00-0400 Heart rate 56 /min Treatment Wstr Work Phone: [facility] 12-24-2021 09:00-0400 Respiratory rate 16 /min Treatment Wstr Work Phone: [facility] 12-24-2021 09:00-0400 SaO2% (BldA) [Mass fraction] 96 % Treatment Wstr Work Phone: [facility] 12-24-2021 09:00-0400 Systolic blood pressure 113 mm[Hg] Treatment Wstr Work Phone: [facility] 12-23-2021 09:48-0400 Body temperature 98.1 [degF] Dunlap Cote VE TEACHER.CLIENT REPORTING ASSOCIATE Work Phone: [facility] 12-23-2021 09:48-0400 Body weight 82.1 kg Caity Cote VE TEACHER.CLIENT REPORTING ASSOCIATE Work Phone: [facility] 12-23-2021 09:48-0400 Diastolic blood pressure 59 mm[Hg] Dunlap Cote VE TEACHER.CLIENT REPORTING ASSOCIATE Work Phone: [facility] 12-23-2021 09:48-0400 Heart rate 58 /min Caity Cote VE TEACHER.CLIENT REPORTING ASSOCIATE Work Phone: [facility] 12-23-2021 09:48-0400 Systolic blood pressure 122 mm[Hg] Dunlap Cote VE TEACHER.CLIENT REPORTING ASSOCIATE Work Phone: [facility] 12-23-2021 09:35-0400 Body weight 82.1 kg Lab/Port Wstr Work Phone: [facility] 12-02-2021 11:21-0400 Body temperature 97.11 [degF] Rip Rivers DO Work Phone: [facility] 12-02-2021 11:21-0400 Diastolic blood pressure 63 mm[Hg] Rip Masci DO Work Phone: [facility] 12-02-2021 11:21-0400 Heart rate 65 /min Rip Masci DO Work Phone: [facility] 12-02-2021 11:21-0400 SaO2% (BldA) [Mass fraction] 97 % Rip Masci DO Work Phone: [facility] 12-02-2021 11:21-0400 Systolic blood pressure 126 mm[Hg] Rip Masci DO Work Phone: [facility] 12-02-2021 11:00-0400 Body weight 82.56 kg Lab/Port Wstr Work Phone: [facility] 11-12-2021 13:12-0400 Body temperature 97.7 [degF] Treatment Wstr Work Phone: [facility] 11-12-2021 13:12-0400 Diastolic blood pressure 57 mm[Hg] Treatment Wstr Work Phone: [facility] 11-12-2021 13:12-0400 Heart rate 66 /min Treatment Wstr Work Phone: [facility] 11-12-2021 13:12-0400 Respiratory rate 18 /min Treatment Wstr Work Phone: [facility] 11-12-2021 13:12-0400 SaO2% (BldA) [Mass fraction] 98 % Treatment Wstr Work Phone: [facility] 11-12-2021 13:12-0400 Systolic blood pressure 121 mm[Hg] Treatment Wstr Work Phone: [facility] 11-11-2021 10:27-0400 Body temperature 98.1 [degF] Rip Masci DO Work Phone: [facility] 11-11-2021 10:27-0400 Body weight 83.46 kg Rip Masci DO Work Phone: [facility] 11-11-2021 10:27-0400 Diastolic blood pressure 68 mm[Hg] Rip Rivers DO Work Phone: [facility] 11-11-2021 10:27-0400 Heart rate 60 /min Rip Jollyi DO Work Phone: [facility] 11-11-2021 10:27-0400 SaO2% (BldA) [Mass fraction] 97 % Rip Rivers DO Work Phone: [facility] 11-11-2021 10:27-0400 Systolic blood pressure 137 mm[Hg] Rip Jollyi DO Work Phone: [facility] 11-09-2021 13:51-0400 Body temperature 97.2 [degF] Treatment Wstr Work Phone: [facility] 11-09-2021 13:51-0400 Diastolic blood pressure 56 mm[Hg] Treatment Wstr Work Phone: [facility] 11-09-2021 13:51-0400 Heart rate 66 /min Treatment Wstr Work Phone: [facility] 11-09-2021 13:51-0400 Systolic blood pressure 126 mm[Hg] Treatment Wstr Work Phone: [facility] 10-22-2021 09:55-0400 Diastolic blood pressure 62 mm[Hg] Treatment Wstr Work Phone: [facility] 10-22-2021 09:55-0400 Respiratory rate 63 /min Treatment Wstr Work Phone: [facility] 10-22-2021 09:55-0400 Systolic blood pressure 130 mm[Hg] Treatment Wstr Work Phone: [facility] 10-21-2021 09:16-0400 Body temperature 98.4 [degF] aCity Cote APRN.CLIENT REPORTING ASSOCIATE Work Phone: [facility] 10-21-2021 09:16-0400 Body weight 83.23 kg Caity Cote APRN.CLIENT REPORTING ASSOCIATE Work Phone: [facility] 10-21-2021 09:16-0400 Diastolic blood pressure 65 mm[Hg] Caity Cote VE TEACHER.CLIENT REPORTING ASSOCIATE Work Phone: [facility] 10-21-2021 09:16-0400 Heart rate 63 /min Dunlapleigh Cote VE TEACHER.CLIENT REPORTING ASSOCIATE Work Phone: [facility] 10-21-2021 09:16-0400 Systolic blood pressure 120 mm[Hg] Caityleigh Cote VE TEACHER.CLIENT REPORTING ASSOCIATE Work Phone: [facility] 10-21-2021 09:02-0400 Body weight 83.23 kg Lab/Port Wstr Work Phone: [facility] 10-01-2021 09:00-0400 Body temperature 97.7 [degF] Treatment Wstr Work Phone: [facility] 10-01-2021 09:00-0400 Diastolic blood pressure 59 mm[Hg] Treatment Wstr Work Phone: [facility] 10-01-2021 09:00-0400 Heart rate 66 /min Treatment Wstr Work Phone: [facility] 10-01-2021 09:00-0400 Systolic blood pressure 124 mm[Hg] Treatment Wstr Work Phone: [facility] 09-30-2021 09:46-0400 Body temperature 98.49 [degF] Rip Masci DO Work Phone: [facility] 09-30-2021 09:46-0400 Body weight 84.14 kg Lab/Port Wstr Work Phone: [facility] 09-30-2021 09:46-0400 Diastolic blood pressure 59 mm[Hg] Rip Masci DO Work Phone: [facility] 09-30-2021 09:46-0400 Heart rate 66 /min Rip Masci DO Work Phone: [facility] 09-30-2021 09:46-0400 SaO2% (BldA) [Mass fraction] 97 % Rip Masci DO Work Phone: [facility] 09-30-2021 09:46-0400 Systolic blood pressure 103 mm[Hg] Rip Masci DO Work Phone: [facility] 09-15-2021 08:54-0400 Body height 154.[address] Mitch Mejia Work Phone: [facility] Work Phone: 09-15-2021 08:54-0400 Body mass index (BMI) [Ratio] 35.9 kg/m2 Dr. Mitch Mejia Work Phone: [facility] Work Phone: 09-15-2021 08:54-0400 Body weight 86.[address] Mitch Mejia Work Phone: [facility] Work Phone: 09-15-2021 08:54-0400 Diastolic blood pressure 72 mm[Hg] Dr. Mitch Mejia Work Phone: [facility] Work Phone: 09-15-2021 08:54-0400 Heart rate 62 /min Dr. Mitch Mejia Work Phone: [facility] Work Phone: 09-15-2021 08:54-0400 Respiratory rate 16 /min Dr. Mitch Mejia Work Phone: [facility] Work Phone: 09-15-2021 08:54-0400 SaO2% (BldA) [Mass fraction] 94 % Dr. Mitch Mejia Work Phone: [facility] Work Phone: 09-15-2021 08:54-0400 Systolic blood pressure 127 mm[Hg] Dr. Mitch Mejia Work Phone: [facility] Work Phone: 09-15-2021 08:54-0400 Body height 154.[address] Mitch Mejia Work Phone: [facility] Work Phone: 09-15-2021 08:54-0400 Body mass index (BMI) [Ratio] 35.9 kg/m2 Dr. Mitch Mejia Work Phone: [facility] Work Phone: 09-15-2021 08:54-0400 Body weight 86.[address] Mitch Mejia Work Phone: [facility] Work Phone: 09-15-2021 08:54-0400 Diastolic blood pressure 72 mm[Hg] Dr. Mitch Mejia Work Phone: [facility] Work Phone: 09-15-2021 08:54-0400 Heart rate 62 /min Dr. Mitch Mejia Work Phone: [facility] Work Phone: 09-15-2021 08:54-0400 Respiratory rate 16 /min Dr. Mitch Mejia Work Phone: [facility] Work Phone: 09-15-2021 08:54-0400 SaO2% (BldA) [Mass fraction] 94 % Dr. Mitch Mejia Work Phone: [facility] Work Phone: 09-15-2021 08:54-0400 Systolic blood pressure 127 mm[Hg] Dr. Mitch Mejia Work Phone: [facility] Work Phone: 09-10-2021 08:00-0400 Body temperature 97.39 [degF] Treatment Wstr Work Phone: [facility] 09-10-2021 08:00-0400 Diastolic blood pressure 67 mm[Hg] Treatment Wstr Work Phone: [facility] 09-10-2021 08:00-0400 Heart rate 74 /min Treatment Wstr Work Phone: [facility] 09-10-2021 08:00-0400 Systolic blood pressure 142 mm[Hg] Treatment Wstr Work Phone: [facility] 09-02-2021 10:0400 Body temperature 98.4 [degF] Rip Jollyi DO Work Phone: [facility] 09-02-2021 10:21-0400 Body weight 86.64 kg Rip Jollyi DO Work Phone: [facility] 09-02-2021 10:21-0400 Diastolic blood pressure 73 mm[Hg] Rip Jollyi DO Work Phone: [facility] 09-02-2021 10:-0400 Heart rate 61 /min Rip Jollyi DO Work Phone: [facility] 09-02-2021 10:0400 SaO2% (BldA) [Mass fraction] 96 % Rip Jollyi DO Work Phone: [facility] 09-02-2021 10:-0400 Systolic blood pressure 120 mm[Hg] Rip Jollyi DO Work Phone: [facility] 12-01-2016 15:30-0400 Heart rate 68 /min Beth Fernandez [facility] Work Phone: 12-01-2016 14:42-0400 BMI (Body Mass Index) 32.32 kg/m2 Beth Fernandez [facility] Work Phone: 12-01-2016 14:42-0400 BP Diastolic 60 mm[Hg] [facility] Work Phone: 12-01-2016 14:42-0400 BP Systolic 120 mm[Hg] [facility] Work Phone: 12-01-2016 14:42-0400 Height 158.75 cm [facility] Work Phone: 12-01-2016 14:42-0400 Pulse (Heart Rate) 76 /min [facility] Work Phone: 12-01-2016 14:42-0400 Respiratory Rate 20 /min [facility] Work Phone: 12-01-2016 14:42-0400 Weight 81.47 kg Beth Fern[facility] Work Phone: Encounters Encounter Date Encounter Type Care Provider Facility Start: 03-07-2025 End: 03-07-2025 ambulatory RPI RIVERS Facility:[facility] Start: 03-06-2025 ambulatory RUPALI MIRZA Facility:[facility] Start: 03-06-2025 End: 03-06-2025 ambulatory RIP RIVERS Facility:[facility] Start: 03-04-2025 End: 03-04-2025 ambulatory CHARLOTTELINDA JARROD Facility:[facility] Start: 02-20-2025 End: 02-20-2025 ambulatory DASHA GARAY Facility:[facility] Start: 02-14-2025 End: 02-14-2025 ambulatory Treatment Rm 6 Santino [facility] Work Phone: Hematology/Oncology Comment on above: Malignant neoplasm o f lower-inner quadrant of right breast of female, estrogen receptor positive (HCC) (Primary Dx); Malignant neoplasm metastatic to lung, unspecified laterality (HCC); Malignant neoplasm metastatic to bone (HCC); HER2-positive carcinoma of breast (HCC) Start: 02-14-2025 End: 02-14-2025 Subsequent hospital visit by physician [facility] Work Phone: Radiology Comment [...] Start: 02-13-2025 End: 02-13-2025 ambulatory Lab/Port Santino [facility] Work Phone: Hematology/Oncology Comment on above: [...] lung (HCC) Start: 02-12-2025 End: 02-12-2025 ambulatory [facility] Facility:[facility] Start: 02-07-2025 End: 02-07-2025 Refill Rip Rivers DO Work Phone: Hematology/Oncology Comment on above: Refill Request Start: 02-06-2025 End: 02-06-2025 Patient encounter procedure Meenu Garay MD Work Phone: Radiation Oncology Comment on above: Secondary malignant neoplasm of right lung (HCC) (Primary Dx) Start: 02-06-2025 End: 02-06-2025 ambulatory MEENU GARAY Facility:[facility] Start: 02-05-2025 End: 02-06-2025 Refill Rip Rivers DO Work Phone: Hematology/Oncology Comment on above: Refill Request Start: 01-30-2025 End: 01-30-2025 Telephone encounter Rip Rivers DO Work Phone: Hematology/Oncology Comment on above: Results Start: 01-29-2025 ambulatory RIP RIVERS Facility:[facility] Start: 01-29-2025 End: 01-29-2025 Subsequent hospital visit by physician Injection [facility] [employer] PET CT Comment on above: Malignant neoplasm m etastatic to bone (HCC) [C79.51] Start: 01-25-2025 End: 01-28-2025 Refill Rip Rivers DO Work Phone: Hematology/Oncology Comment on above: Refill Request Start: 01-24-2025 End: 01-24-2025 ambulatory Treatment Rm 4 Santino [facility] Work Phone: Hematology/Oncology Comment on above: Malignant neoplasm o f lower-inner quadrant of right breast of female, estrogen receptor positive (HCC) (Primary Dx); Malignant neoplasm metastatic to lung, unspecified laterality (HCC); Malignant neoplasm metastatic to bone (HCC); HER2-positive carcinoma of breast (HCC) Start: 01-23-2025 End: 01-23-2025 Patient encounter procedure Caity Cote CLIENT REPORTING ASSOCIATE Work Phone: Hematology/Oncology Start: 01-23-2025 End: 01-23-2025 ambulatory Lab/Port [facility] Work Phone: Hematology/Oncology Comment on above: [...] Start: 01-18-2025 End: 01-18-2025 Specialty Pharmacy Nallely Aguil[facility] Comment on above: [facility]PP Oral Oncology/he matology - Medication Refill (Capecitabine 500 mg) Start: 01-03-2025 End: 01-03-2025 ambulatory Treatment Rm 6 [facility] Work Phone: Hematology/Oncology Comment on above: [...] Start: 01-02-2025 End: 01-02-2025 ambulatory Lab/Port Santino [facility] Work Phone: Hematology/Oncology Comment on above: Malignant neoplasm o f lower-inner quadrant of right breast of female, estrogen receptor positive (HCC); HER2-positive carcinoma of breast (HCC); Malignant neoplasm metastatic to bone (HCC) Start: 12-28-2024 End: 12-28-2024 Specialty Pharmacy N[facility] Comment on above: SPP Oral Oncology/he matology - Medication Refill (Capecitabine 500 mg) Start: 12-27-2024 End: 12-27-2024 ambulatory Lab/Port Santino [facility] Work Phone: Hematology/Oncology Comment on above: Malignant neoplasm o f lower-inner quadrant of right breast of female, estrogen receptor positive (HCC) (Primary Dx); HER2-positive carcinoma of breast (HCC); Malignant neoplasm metastatic to bone (HCC); Malignant neoplasm metastatic to both lungs (HCC); Chemotherapy-induced cardiomyopathy (HCC) Start: 12-27-2024 End: 12-27-2024 Subsequent hospital visit by physician Ct Prep [facility] Cat Scan Comment on above: Malignant neoplasm o f lower-inner quadrant of right breast of female, estrogen receptor positive (HCC) [C50.311, Z17.0] Start: 12-25-2024 End: 12-25-2024 Refill Rip Rivers DO Work Phone: Hematology/Oncology Comment on above: Refill Request Start: 12-19-2024 Non-patient / Non-visit Dr. Mao Of hakeem RG -[facility] Start: 12-19-2024 End: 12-19-[address] Rip Rivers DO Work Phone: -Cardiovascular Services Start: 12-19-2024 End: 12-19-2024 Patient encounter procedure KARIN- Caity Cote -Cardiovascular Services Work Phone: Start: 12-19-2024 End: 12-19-2024 ambulatory Isac Jose Cruz Facility:[facility] Start: 12-13-2024 End: 12-13-2024 ambulatory Treatment Rm 4 Santino [facility] Work Phone: Hematology/Oncology Comment on above: [...] End: 12-12-2024 Patient encounter procedure Caity Cote APRN.CLIENT REPORTING ASSOCIATE Work Phone: Hematology/Oncology Start: 12-12-2024 End: 12-12-2024 ambulatory Lab/Port Santino [facility] Work Phone: Hematology/Oncology Comment on above: [...] 12-05-2024 End: 12-05-2024 Specialty Pharmacy Nallely [facility] Comment on above: SPP Oral Oncology/he matology - Medication Refill (Capecitabine 500 mg) Start: 11-22-2024 End: 11-22-2024 ambulatory Treatment Rm 8 [facility] Work Phone: Hematology/Oncology Comment on above: Malignant neoplasm o f lower-inner quadrant of right breast of female, estrogen receptor positive (HCC) (Primary Dx); Malignant neoplasm metastatic to lung, unspecified laterality (HCC); Malignant neoplasm metastatic to bone (HCC); HER2-positive carcinoma of breast (HCC) Start: 11-21-2024 End: 11-21-2024 Patient encounter procedure Caity Cote APRN.CLIENT REPORTING ASSOCIATE Work Phone: Hematology/Oncology Start: 11-21-2024 End: 11-21-2024 ambulatory Lab/Port Santino [facility] Work Phone: Hematology/Oncology Comment on above: [...] 11-15-2024 End: 11-15-2024 Specialty Pharmacy N[facility] Comment on above: SPP Oral Oncology/he matology - Medication Refill (Capecitabine 500mg) Start: 11-14-2024 End: 11-14-2024 Refill Rip Rivers DO Work Phone: Hematology/Oncology Comment on above: Refill Request Start: 11-09-2024 End: 11-09-2024 Refill Rip Rivers DO Work Phone: Hematology/Oncology Comment on above: Refill Request Start: 11-01-2024 End: 11-01-2024 ambulatory Treatment Rm 4 [facility] Work Phone: Hematology/Oncology Comment on above: Malignant neoplasm o f lower-inner quadrant of right breast of female, estrogen receptor positive (HCC) (Primary Dx); Malignant neoplasm metastatic to lung, unspecified laterality (HCC); Malignant neoplasm metastatic to bone (HCC); HER2-positive carcinoma of breast (HCC) Start: 10-31-2024 End: 10-31-2024 Patient encounter procedure Caity Cote APRN.CLIENT REPORTING ASSOCIATE Work Phone: Hematology/Oncology Start: 10-31-2024 End: 10-31-2024 ambulatory Lab/[facility] Work Phone: Hematology/Oncology Comment on above: [...] Start: 10-11-2024 End: 10-11-2024 ambulatory Treatment [address] [facility] Work Phone: Hematology/Oncology Comment on above: Malignant neoplasm o f lower-inner quadrant of right breast of female, estrogen receptor positive (HCC) (Primary Dx); Malignant neoplasm metastatic to lung, unspecified laterality (HCC); Malignant neoplasm metastatic to bone (HCC); HER2-positive carcinoma of breast (HCC); 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) Start: 10-10-2024 End: 10-10-2024 Patient encounter procedure Caity Cote APRN.CLIENT REPORTING ASSOCIATE Work Phone: Hematology/Oncology Start: 10-10-2024 End: 10-10-2024 ambulatory Lab/Port [facility] Work Phone: Hematology/Oncology Comment on above: [...] Start: 10-03-2024 End: 10-03-2024 ambulatory Lab/Port [facility] Work Phone: Hematology/Oncology Comment on above: [...] hemosiderin, quant Isac Billingsley MD Work Phone: [facility] Work Phone: Start: 2024 End: 2024 Patient encounter procedure Isac Billingsley MD Work Phone: [facility] Comment on above: Routine general medi romana examination at health care facility (Primary Dx); Malignant neoplasm metastatic to both lungs; Bronchitis; History of right breast cancer; Heart disease Start: 2024 End: 2024 ambulatory [facility] Amb[facility] Start: 2024 End: 2024 Encounter for general adult medical examination without abnormal findings [facility] Start: 09-26-2024 End: 09-26-2024 Telephone encounter Rip Rivers DO Work Phone: Hematology/Oncology Comment on above: Fever Start: 09-26-2024 End: 09-26-2024 ambulatory [facility] Facility:[facility] Start: 09-17-2024 End: 09-17-2024 Specialty Pharmacy Nallely Aguilera [facility] Comment on above: SPP Oral Oncology/he matology - Medication Refill (Capecitabine 500mg) Start: 09-14-2024 End: 09-14-2024 ambulatory [facility] Hematology/Oncology Comment on above: Echo Start: 09-14-2024 End: 09-14-2024 E-mail encounter from caregiver [facility] Provider Hematology/Oncology Start: 09-13-2024 Non-patient / Non-visit Dr. Mao [facility] Start: 09-13-2024 End: 09-13-[address] Rip Rivers DO Work Phone: [facility] Work Phone: Start: 09-13-2024 End: 09-13-[address] Rip Rivers DO -Cardiovascular Services Work Phone: Start: 09-13-2024 End: 09-13-2024 ambulatory [facility] Facility:[facility] Start: 09-06-2024 End: 09-06-2024 ambulatory Treatment 6 [facility] Work Phone: Hematology/Oncology Comment on above: Malignant neoplasm o f lower-inner quadrant of right breast of female, estrogen receptor positive (HCC) (Primary Dx); Malignant neoplasm metastatic to lung, unspecified laterality (HCC); Malignant neoplasm metastatic to bone (HCC); HER2-positive carcinoma of breast (HCC) Start: 09-05-2024 End: 09-05-2024 Patient encounter procedure Caity Cote APRN.CNP Work Phone: Hematology/Oncology Start: 09-05-2024 End: 09-05-2024 ambulatory Lab/Port [facility] Work Phone: Hematology/Oncology Comment on above: [...] Start: 08-30-2024 End: 08-30-2024 ambulatory Lab/Port [facility] Work Phone: Hematology/Oncology Comment on above: Malignant neoplasm o f lower-inner quadrant of right breast of female, estrogen receptor positive (HCC) (Primary Dx); Malignant neoplasm metastatic to lung, unspecified laterality (HCC); Malignant neoplasm metastatic to bone (HCC); HER2-positive carcinoma of breast (HCC); Malignant neoplasm metastatic to both lungs (HCC) Start: 08-30-2024 End: 08-30-2024 Subsequent hospital visit by physician [facility] Mob 2 Work Phone: Radiology Comment on above: History of thyroid n odule [Z86.39] Malignant neoplasm o f lower-inner quadrant of right breast of female, estrogen receptor positive (HCC) [C50.311, Z17.0] Start: 08-29-2024 End: 08-29-2024 Telephone encounter Rip Rivers DO Work Phone: Hematology/Oncology Comment on above: Appointment Start: 08-27-2024 End: 08-27-2024 Specialty Pharmacy Nallely [facility]wood [facility] Comment on above: SPP Oral Oncology/he matology - Medication Refill (Capecitabine 500mg) Start: 08-16-2024 End: 08-16-2024 ambulatory Treatment Rm 4 [facility]ino [facility] Work Phone: Hematology/Oncology Comment on above: [...] Start: 08-15-2024 End: 08-15-2024 ambulatory Lab/[facility] Work Phone: Hematology/Oncology Comment on above: [...] Request Start: 07-26-2024 End: 07-26-2024 ambulatory Treatment Rm 5 [facility]ino [facility] Work Phone: Hematology/Oncology Comment on above: Malignant neoplasm o f lower-inner quadrant of right breast of female, estrogen receptor positive (HCC) (Primary Dx); Malignant neoplasm metastatic to lung, unspecified laterality (HCC); Malignant neoplasm metastatic to bone (HCC); HER2-positive carcinoma of breast (HCC) Start: 07-25-2024 End: 07-25-2024 Patient encounter procedure Quita Hoff Work Phone: Hematology/Oncology Start: 07-25-2024 End: 07-25-2024 ambulatory Lab/Port [facility] Work Phone: Hematology/Oncology Comment on above: [...] encounter Elisha WHARTON Hematology/Oncology Comment on above: [employer] Assistance Start: 07-16-2024 End: 07-18-2024 Specialty Pharmacy Nallely Aguilera [facility] Comment on above: SPP Oral Oncology/he matology - Medication Refill (Capecitabine 500mg) Refill Request Start: 07-05-2024 End: 07-05-2024 ambulatory Treatment Rm 4 [facility] Work Phone: Hematology/Oncology Comment on above: Malignant neoplasm o f lower-inner quadrant of right breast of female, estrogen receptor positive (HCC) (Primary Dx); Malignant neoplasm metastatic to lung, unspecified laterality (HCC); Malignant neoplasm metastatic to bone (HCC); HER2-positive carcinoma of breast (HCC); Chemotherapy induced diarrhea Start: 07-04-2024 End: 07-04-2024 Telephone encounter Elisha WHARTON Hematology/Oncology Comment on above: [id number] Patient Assistance Start: 07-04-2024 End: 07-04-2024 Patient encounter procedure Dunlap Rocael PAEZCLIENT REPORTING ASSOCIATE Work Phone: Hematology/Oncology Start: 07-04-2024 End: 07-04-2024 ambulatory Lab/Port [facility] Work Phone: Hematology/Oncology Comment on above: [...] 06-29-2024 End: 06-29-2024 Specialty Pharmacy Lele Tucker [facility] Comment on above: SPP Oral Oncology/he matology - Medication Refill (Capecitabine 500mg) Medication Request Start: 06-14-2024 End: 06-14-2024 ambulatory Treatment Rm 5 [facility] Work Phone: Hematology/Oncology Comment on above: [...] nodule Start: 06-13-2024 End: 06-13-2024 ambulatory Lab/Port [facility] [employer] Work Phone: Hematology/Oncology Comment on above: Malignant neoplasm o f lower-inner quadrant of right breast of female, estrogen receptor positive (HCC); Malignant neoplasm metastatic to lung, unspecified laterality (HCC); Malignant neoplasm metastatic to bone (HCC); HER2-positive carcinoma of breast (HCC); Malignant neoplasm metastatic to both lungs (HCC) Start: 06-04-2024 End: 06-04-2024 Specialty Pharmacy Nallely Aguilera [facility] Comment on above: SPP Oral Oncology/he matology - Medication Refill (Capecitabine) Start: 06-01-2024 End: 06-03-2024 Refill Rip Rivers DO Work Phone: Hematology/Oncology Comment on above: Refill Request Start: 05-28-2024 End: 07-05-2024 Telephone encounter Rip Rivers DO Work Phone: [place] Start: 05-24-2024 End: 05-24-2024 ambulatory Treatment Rm 4 [facility] Work Phone: Hematology/Oncology Comment on above: Malignant neoplasm o f lower-inner quadrant of right breast of female, estrogen receptor positive (HCC) (Primary Dx); Malignant neoplasm metastatic to lung, unspecified laterality (HCC); Malignant neoplasm metastatic to bone (HCC); HER2-positive carcinoma of breast (HCC) Start: 05-23-2024 End: 05-23-2024 Patient encounter procedure Rip Rivers DO Work Phone: Hematology/Oncology Start: 05-23-2024 End: 05-23-2024 ambulatory Lab/Port [facility] Work Phone: Hematology/Oncology Comment on above: [...] thyroid nodule Start: 05-21-2024 End: 05-21-2024 ambulatory [facility] Facility:[facility] Start: 05-14-2024 End: 05-14-2024 Specialty Pharmacy Nallely [facility] Comment on above: SPP Oral Oncology/he matology - Medication Refill (Capecitabine) Start: 05-04-2024 End: 05-04-2024 ambulatory Treatment Rm 2 [facility] Work Phone: Hematology/Oncology Comment on above: [...] Start: 05-02-2024 End: 05-02-2024 ambulatory Lab/Port [facility] Work Phone: Hematology/Oncology Comment on above: Malignant neoplasm o f lower-inner quadrant of right breast of female, estrogen receptor positive (HCC); Malignant neoplasm metastatic to lung, unspecified laterality (HCC); Malignant neoplasm metastatic to bone (HCC); HER2-positive carcinoma of breast (HCC); Malignant neoplasm metastatic to both lungs (HCC) Start: 04-24-2024 End: 04-24-2024 ambulatory Lab/Port [facility] Work Phone: Hematology/Oncology Comment on above: Malignant neoplasm o f lower-inner quadrant of right breast of female, estrogen receptor positive (HCC) (Primary Dx) Start: 04-24-2024 End: 04-24-2024 Subsequent hospital visit by physician Ct Prep [facility] Cat Scan Comment on above: Malignant neoplasm o f lower-inner quadrant of right breast of female, estrogen receptor positive (HCC) [C50.311, Z17.0] Start: 04-23-2024 End: 04-23-2024 Telephone encounter Rip Rivers DO Work Phone: Hematology/Oncology Comment on above: Appointment Start: 04-20-2024 End: 04-20-2024 Specialty Pharmacy Nallely [facility] Comment on above: SPP Oral Oncology/he matology - Medication Refill (Capecitabine ) Start: 04-12-2024 End: 04-12-2024 ambulatory Treatment Rm 7 [facility] Work Phone: Hematology/Oncology Comment on above: Malignant neoplasm o f lower-inner quadrant of right breast of female, estrogen receptor positive (HCC) (Primary Dx); Malignant neoplasm metastatic to lung, unspecified laterality (HCC); Malignant neoplasm metastatic to bone (HCC); HER2-positive carcinoma of breast (HCC); Chemotherapy induced diarrhea Start: 04-11-2024 End: 04-11-2024 Patient encounter procedure Caity Cote CLIENT REPORTING ASSOCIATE Work Phone: Hematology/Oncology Start: 04-11-2024 End: 04-11-2024 ambulatory Lab/Port [facility] Work Phone: Hematology/Oncology Comment on above: [...] 03-30-2024 End: 03-30-2024 Specialty Pharmacy Jethro Blackmon [facility] Comment on above: SPP Oral Oncology/he matology - Medication Refill (Xeloda) Start: 03-22-2024 End: 03-22-2024 ambulatory Treatment 9 [facility] Work Phone: Hematology/Oncology Comment on above: Malignant neoplasm o f lower-inner quadrant of right breast of female, estrogen receptor positive (HCC) (Primary Dx); Malignant neoplasm metastatic to lung, unspecified laterality (HCC); Malignant neoplasm metastatic to bone (HCC); HER2-positive carcinoma of breast (HCC) Start: 03-21-2024 End: 03-21-2024 Patient encounter procedure Rip Rivers DO Work Phone: Hematology/Oncology Start: 03-21-2024 End: 03-21-2024 ambulatory Lab/Port [facility] Work Phone: Hematology/Oncology Comment on above: [...] 03-09-2024 End: 03-09-2024 Specialty Pharmacy Lele Tucker [facility] Comment on above: SPP Oral Oncology/he matology - Medication Refill (capecitabine) Start: 02-28-2024 End: 02-28-2024 ambulatory Treatment 4 [facility] Work Phone: Hematology/Oncology Comment on above: Malignant neoplasm o f lower-inner quadrant of right breast of female, estrogen receptor positive (HCC) (Primary Dx); Malignant neoplasm metastatic to lung, unspecified laterality (HCC); Malignant neoplasm metastatic to bone (HCC); HER2-positive carcinoma of breast (HCC) Start: 02-27-2024 End: 02-27-2024 Patient encounter procedure Caity Cote APRN.CNP Work Phone: Hematology/Oncology Start: 02-27-2024 End: 02-27-2024 ambulatory Lab/Port [facility] Work Phone: Hematology/Oncology Comment on above: [...] (HCC) Start: 02-08-2024 End: 02-08-2024 ambulatory Treatment [address] [facility] Work Phone: Hematology/Oncology Comment on [...] End: 02-03-2024 Patient encounter procedure Caity Cote CLIENT REPORTING ASSOCIATE Work Phone: Hematology/Oncology Start: 02-03-2024 End: 02-03-2024 ambulatory Lab/Port [facility] Work Phone: Hematology/Oncology Comment on above: [...] Start: 01-26-2024 End: 01-26-2024 Specialty Pharmacy Nallely [facility] Comment on above: SPP Oral Oncology/he matology - Medication Refill (Capecitabine ) Start: 01-16-2024 End: 01-16-2024 ambulatory Treatment Rm 6 [facility] Work Phone: Hematology/Oncology Comment on above: [...] Appointment (Hercept in/ ) Start: 01-12-2024 ambulatory Williams Obermarier Facili ty:[facility] Start: 01-12-2024 End: 01-12-2024 ambulatory Williams Obslimhauser Facility:[facility] Start: 01-11-2024 Telephone encounter Rip perez DO Work Phone: Hematology/Oncology Comment on above: Question Start: 01-09-2024 Telephone encounter Carla Almonte RN He matology/Oncology Comment on above: Hot Kettle Tender - O ther (Follow-up ) Start: 01-04-2024 End: 01-04-2024 Subsequent hospital visit by physician Lea [facility] (I-Stat) Work Phone: Cat Scan Comment on above: Malignant neoplasm o f lower-inner quadrant of right breast of female, estrogen receptor positive (HCC) [C50.311, Z17.0] Start: 01-04-2024 Telephone encounter Rip perez DO Work Phone: Hematology/Oncology Comment on above: Results Start: 01-04-2024 End: 01-04-2024 Subsequent hospital visit by physician [facility] Work Phone: Radiology Comment on above: Malignant neoplasm o f lower-inner quadrant of right breast of female, estrogen receptor positive (HCC) [C50.311, Z17.0] Start: 01-04-2024 End: 01-04-2024 Patient encounter procedure Rip Rivers DO Work Phone: Hematology/Oncology Start: 01-04-2024 End: 01-04-2024 ambulatory Lab/Port [facility] Work Phone: Hematology/Oncology Comment on above: [...] (HCC) Start: 12-30-2023 Specialty Pharmacy Nallely Aguilera [facility] Comment on above: SPP Oral Oncology/he matology - Medication Refill (Capecitabine 500mg) Start: 12-22-2023 End: 12-22-2023 ambulatory Treatment Rm 9 [facility] Work Phone: Hematology/Oncology Comment on above: Malignant neoplasm m etastatic to bone (HCC) (Primary Dx) Start: 12-22-2023 End: 12-22-2023 Subsequent hospital visit by physician Ct Prep [facility] Cat Scan Comment on above: Malignant neoplasm o f lower-inner quadrant of right breast of female, estrogen receptor positive (HCC) [C50.311, Z17.0] Start: 12-21-2023 Telephone encounter Rip perez DO Work Phone: Hematology/Oncology Comment on above: Results Start: 12-15-2023 End: 12-15-2023 ambulatory Treatment Rm 1 [facility] Work Phone: Hematology/Oncology Comment on above: Malignant neoplasm o f lower-inner quadrant of right breast of female, estrogen receptor positive (HCC) (Primary Dx); Malignant neoplasm metastatic to lung, unspecified laterality (HCC); Malignant neoplasm metastatic to bone (HCC); HER2-positive carcinoma of breast (HCC); Chemotherapy-induced cardiomyopathy (HCC); Chemotherapy-induced neuropathy (HCC) Start: 12-14-2023 Telephone encounter Caity bhandari APRN.CLIENT REPORTING ASSOCIATE Work Phone: Hematology/Oncology Start: 12-14-2023 End: 12-14-2023 Patient encounter procedure Caity Cote APRN.CLIENT REPORTING ASSOCIATE Work Phone: Hematology/Oncology Start: 12-14-2023 End: 12-14-2023 ambulatory Lab/Port [facility] Work Phone: Hematology/Oncology Comment on above: [...] (HCC) Start: 12-07-2023 Specialty Pharmacy Nallely [facility] Comment on above: SPP Oral Oncology/he matology - Medication Refill (Capecitabine 500mg) Start: 11-24-2023 End: 11-24-2023 ambulatory Treatment Rm 6 [facility] Work Phone: Hematology/Oncology Comment on above: Malignant neoplasm m etastatic to bone (HCC) (Primary Dx); Malignant neoplasm of lower-inner quadrant of right breast of female, estrogen receptor positive (HCC); Malignant neoplasm metastatic to lung, unspecified laterality (HCC); HER2-positive carcinoma of breast (HCC) Start: 11-23-2023 End: 11-23-2023 Patient encounter procedure Rip Rivers DO Work Phone: Hematology/Oncology Start: 11-23-2023 End: 11-23-2023 ambulatory Lab/Port [facility] Work Phone: Hematology/Oncology Comment on above: [...] Almonte RN He matology/Oncology Comment on above: Hot Kettle Tender - O ther (Oral Anti-Cancer Agents Follow-up ) Start: 11-11-2023 End: 11-11-2023 ambulatory Lab/Port [facility] Work Phone: Hematology/Oncology Comment on above: Malignant neoplasm o f lower-inner quadrant of right breast of female, estrogen receptor positive (HCC); Malignant neoplasm metastatic to lung, unspecified laterality (HCC); Malignant neoplasm metastatic to bone (HCC); HER2-positive carcinoma of breast (HCC) Start: 11-09-2023 Refill Rip Gallardo Work Phone: Hematology/Oncology Comment on above: Refill Request Start: 11-03-2023 End: 11-03-2023 ambulatory Treatment [address] [facility] Work Phone: Hematology/Oncology Comment on above: Malignant neoplasm o f lower-inner quadrant of right breast of female, estrogen receptor positive (HCC) (Primary Dx); Malignant neoplasm metastatic to lung, unspecified laterality (HCC); Malignant neoplasm metastatic to bone (HCC); HER2-positive carcinoma of breast (HCC) Start: 11-02-2023 End: 11-02-2023 Patient encounter procedure Caity Cote APRN.CLIENT REPORTING ASSOCIATE Work Phone: Hematology/Oncology Start: 11-02-2023 End: 11-02-2023 ambulatory Lab/Port [facility] Work Phone: Hematology/Oncology Comment on above: [...] Request Start: 11-01-2023 Specialty Pharmacy Nallely Aguilera [facility] Comment on above: [...] Question Start: 10-13-2023 End: 10-13-2023 ambulatory Treatment [address] [facility] Work Phone: Hematology/Oncology Comment on above: Malignant neoplasm o f lower-inner quadrant of right breast of female, estrogen receptor positive (HCC) (Primary Dx); Malignant neoplasm metastatic to lung, unspecified laterality (HCC); Malignant neoplasm metastatic to bone (HCC); HER2-positive carcinoma of breast (HCC) Start: 10-11-2023 End: 10-11-2023 Patient encounter procedure Rip Rivers DO Work Phone: Hematology/Oncology Start: 10-11-2023 End: 10-11-2023 ambulatory Lab/Port [facility] Work Phone: Hematology/Oncology Comment on above: [...] (Primary Dx) Start: 2023 Refill Caity silverio APRN.CLIENT REPORTING ASSOCIATE Work Phone: Hematology/Oncology Comment on above: Refill Request Start: 09-22-2023 End: 09-22-2023 ambulatory Treatment Rm 6 [facility] Work Phone: Hematology/Oncology Comment on above: [...] Start: 09-21-2023 End: 09-21-2023 ambulatory Lab/Port [place] [facility] Work Phone: Hematology/Oncology Comment on above: Malignant neoplasm o f lower-inner quadrant of right breast of female, estrogen receptor positive (HCC); Malignant neoplasm metastatic to bone (HCC); Malignant neoplasm metastatic to lung, unspecified laterality (HCC); Chemotherapy-induced cardiomyopathy (HCC) Start: 09-16-2023 Telephone encounter Carla Almonte RN He matology/Oncology Comment on above: Hot Kettle Tender - O ther (Oral Follow-up ) Start: 09-15-2023 End: 09-15-2023 Subsequent hospital visit by physician [facility] Mob 1 Work Phone: Radiology Comment on above: RUQ pain [R10.11] Start: 09-13-2023 Patient encounter procedure Meenu Garay MD Work Phone: [facility] [place] Start: 09-13-2023 Radiation Oncology Note Vaughn Garay MD Work Phone: Radiation Oncology Comment on above: Simulation Note Treatment Planning Start: 09-13-2023 End: 09-13-2023 Nursing evaluation of patient and [facility] Work Phone: Radiation Oncology Comment on above: [...] Start: 08-30-2023 End: 08-30-2023 ambulatory Lab/Port [facility] Work Phone: Hematology/Oncology Comment on above: Malignant neoplasm m etastatic to bone (HCC) (Primary Dx); Malignant neoplasm of lower-inner quadrant of right breast of female, estrogen receptor positive (HCC); Malignant neoplasm metastatic to lung, unspecified laterality (HCC); Chemotherapy-induced cardiomyopathy (HCC) Start: 08-30-2023 Patient encounter procedure Nallely Lock[facility] Comment on [...] Dr. Williams Farrell Work Phone: [facility] Work Phone: Start: 08-11-2023 End: 08-11-2023 ambulatory Treatment 10 [facility] Work Phone: Hematology/Oncology Comment on above: Malignant [...] with patient Meenu Garay MD Work Phone: [facility] Start: 08-10-2023 End: 08-10-2023 Office [...] Start: 08-10-2023 End: 08-10-2023 ambulatory Lab/Port [facility] Work Phone: Hematology/Oncology Comment on above: Malignant neoplasm o f lower-inner quadrant of right breast of female, estrogen receptor positive (HCC); Malignant neoplasm metastatic to bone (HCC); Malignant neoplasm metastatic to lung, unspecified laterality (HCC); Chemotherapy-induced cardiomyopathy (HCC) Start: 08-03-2023 Refill Rip Gallardo Work Phone: Hematology/Oncology Comment on above: Refill Request Start: 08-03-2023 End: 08-03-2023 Subsequent hospital visit by physician [facility] (I-Stat) Work Phone: Cat Scan Comment on above: Malignant neoplasm m etastatic to left lung (HCC) [C78.02] Start: 07-21-2023 End: 07-21-2023 ambulatory Treatment Rm 4 [facility] Work Phone: Hematology/Oncology Comment on above: Malignant neoplasm m etastatic to bone (HCC) (Primary Dx); Malignant neoplasm metastatic to lung, unspecified laterality (HCC); Malignant neoplasm of lower-inner quadrant of right breast of female, estrogen receptor positive (HCC) (HCC) Start: 07-20-2023 End: 07-20-2023 Patient encounter procedure Caity Cote APRN.CLIENT REPORTING ASSOCIATE Work Phone: [facility] [place] Start: 07-20-2023 End: 07-20-2023 ambulatory Lab/Port [facility] Work Phone: Hematology/Oncology Comment on above: [...] 45 minutes Williams Farrell DO Work Phone: [facility] Comment on above: Malignant neoplasm m etastatic to both lungs (CMS/HCC) (Primary Dx); Malignant neoplasm metastatic to bone (CMS/HCC); Chemotherapy-induced neuropathy (CMS/HCC); Chemotherapy-induced cardiomyopathy (CMS/HCC); Platelets decreased (CMS/HCC); Primary hypertension; Heart disease Start: 05-27-2023 End: 05-27-[address] Mitch Mejia Work Phone: [facility] Work Phone: Start: 05-25-2023 Non-patient / Non-visit Dr. Montanez Work Phone: [facility] Start: 05-25-2023 End: 05-25-[address] Mitch Mejia Work Phone: [facility] Work Phone: Start: 05-25-2023 End: 05-25-[address] Mitch Mejia Work Phone: [facility] Work Phone: Start: 04-27-2023 End: 04-27-2023 ambulatory Treatment Rm 4 [facility] Work Phone: Hematology/Oncology Comment on above: Malignant neoplasm m etastatic to bone (HCC) (Primary Dx); Malignant neoplasm metastatic to lung, unspecified laterality (HCC); Malignant neoplasm of lower-inner quadrant of right breast of female, estrogen receptor positive (HCC) Start: 04-26-2023 End: 04-26-2023 Patient encounter procedure Rip Rivers DO Work Phone: [facility] Start: 04-26-2023 End: 04-26-2023 ambulatory Lab/[place] [facility] Work Phone: Hematology/Oncology Comment on above: [...] Start: 04-06-2023 End: 04-06-2023 ambulatory Caity Cote APRN.CLIENT REPORTING ASSOCIATE Work Phone: Hematology/Oncology Comment on above: Malignant neoplasm o f lower-inner quadrant of right breast of female, estrogen receptor positive (HCC) (Primary Dx); Malignant neoplasm metastatic to bone (HCC); Malignant neoplasm metastatic to lung, unspecified laterality (HCC) Start: 04-06-2023 End: 04-06-2023 Patient encounter procedure Caity Cote APRN.CLIENT REPORTING ASSOCIATE Work Phone: [facility] Start: 03-30-2023 End: 03-30-2023 ambulatory Meenu Garay MD Work Phone: Radiation Oncology Comment on above: Malignant neoplasm m etastatic to left lung (HCC) (Primary Dx) Start: 03-30-2023 End: 03-30-2023 Telemedicine consultation with patient Meenu Garay MD, MD Work Phone: [facility] Start: 03-30-2023 Telephone encounter Meenu Heredia MD Work Phone: Radiation Oncology Comment on above: Future Appointment Start: 03-24-2023 Telephone encounter Rip perez DO Work Phone: Hematology/Oncology Comment on above: Results Start: 03-23-2023 End: 03-23-2023 Subsequent hospital visit by physician [facility] 2 Work Phone: Radiology Comment on above: Multiple thyroid nod ules [E04.2] Start: 03-17-2023 End: 03-17-2023 ambulatory Treatment Rm 8 [facility] Work Phone: Hematology/Oncology Comment on above: Malignant neoplasm m etastatic to bone (HCC) (Primary Dx); Malignant neoplasm metastatic to lung, unspecified laterality (HCC); Malignant neoplasm of lower-inner quadrant of right breast of female, estrogen receptor positive (HCC) Start: 03-16-2023 End: 03-16-2023 ambulatory [facility] Work Phone: Hematology/Oncology Comment on above: Malignant neoplasm m etastatic to bone (HCC) (Primary Dx); Malignant neoplasm of lower-inner quadrant of right breast of female, estrogen receptor positive (HCC) ; Malignant neoplasm metastatic to lung, unspecified laterality (HCC); Chemotherapy-induced cardiomyopathy (HCC) Start: 03-11-2023 End: 03-11-2023 Subsequent hospital visit by physician [facility] ([facility]) Work Phone: Cat Scan Comment on above: Malignant neoplasm m etastatic to bone (HCC) [C79.51] Start: 02-23-2023 End: 02-23-2023 Patient encounter procedure Rip Rivers DO Work Phone: [facility] Comment on above: Malignant neoplasm m etastatic [...] Non-patient / Non-visit Dr. Montanez Work Phone: [facility] Work Phone: Start: 02-16-2023 End: 02-17-2023 Evaluation and management of inpatient Dr. Mitch Mejia Work Phone: [facility] Work Phone: Start: 02-16-2023 End: 02-17-[address] Mitch Mejia Work Phone: [facility] Work Phone: Start: 02-16-2023 Telephone encounter Meenu Heredia MD Work Phone: Radiation Oncology Comment on above: symptoms Start: 02-09-2023 Patient encounter procedure Meenu Garay MD, MD Work Phone: [facility] Start: 02-09-2023 Radiation Oncology Note Vaughn Garay MD Work Phone: Radiation Oncology Comment on above: Treatment Planning Simulation Note Start: 02-09-2023 End: 02-09-2023 [facility] of [facility] Work Phone: Radiation Oncology Comment on [...] Start: 02-02-2023 End: 02-02-2023 ambulatory Lab/[place] [facility] Work Phone: Hematology/Oncology Comment on above: Malignant neoplasm o f lower-inner quadrant of right breast of female, estrogen receptor positive (HCC); Malignant neoplasm metastatic to bone (HCC); Malignant neoplasm metastatic to lung, unspecified laterality (HCC); Chemotherapy-induced cardiomyopathy (HCC) Start: 01-28-2023 Non-patient / Non-visit Dr. Montanez Work Phone: [facility] Start: 01-28-2023 End: 01-28-[address] Mitch Mejia Work Phone: [facility] Work Phone: Start: 01-28-2023 End: 01-28-[address] Mitch Mejia Work Phone: [facility] Work Phone: Start: 01-26-2023 End: 01-26-2023 Subsequent hospital visit by physician [facility] ([facility]) Work Phone: Cat Scan Comment on above: Malignant neoplasm o f lower-inner quadrant of right breast of female, estrogen receptor positive (HCC) [C50.311, Z17.0] Start: 01-13-2023 End: 01-13-2023 ambulatory Treatment Rm 4 [place] [facility] Work Phone: Hematology/Oncology Comment on above: Malignant neoplasm m etastatic to bone (HCC) (Primary Dx); Malignant neoplasm metastatic to lung, unspecified laterality (HCC); Malignant neoplasm of lower-inner quadrant of right breast of female, estrogen receptor positive (HCC); Chemotherapy induced diarrhea Start: 01-12-2023 End: 01-12-2023 Patient encounter procedure Rip Rivers DO Work Phone: [facility] [place] Start: 01-12-2023 End: 01-12-2023 ambulatory Lab/[place] [facility] Work Phone: Hematology/Oncology Comment on above: [...] encounter procedure Rip Rivers DO Work Phone: [employer] [facility] Start: 12-02-2022 End: 12-02-2022 ambulatory Treatment Rm 10 [place] [facility] Work Phone: Hematology/Oncology Comment on above: Malignant neoplasm m etastatic to bone (HCC) (Primary Dx); Malignant neoplasm metastatic to lung, unspecified laterality (HCC); Malignant neoplasm of lower-inner quadrant of right breast of female, estrogen receptor positive (HCC) Start: 12-01-2022 End: 12-01-2022 Patient encounter procedure Rip Rivers DO Work Phone: [employer] [facility] Start: 12-01-2022 End: 12-01-2022 ambulatory Lab/[place] [facility] Work Phone: Hematology/Oncology Comment on above: [...] encounter procedure Dr. Mitch Mejia Work Phone: [facility] Work Phone: Start: 11-11-2022 Chart abstracting Ranjana Burgos RN Hematology/Oncology Comment on above: Research (Consent CA REVIVE) Start: 11-11-2022 End: 11-11-2022 ambulatory Treatment Rm 5 [place] [facility] Work Phone: Hematology/Oncology Comment on above: Malignant neoplasm m etastatic to bone (HCC) (Primary Dx); Malignant neoplasm metastatic to lung, unspecified laterality (HCC); Malignant neoplasm of lower-inner quadrant of right breast of female, estrogen receptor positive (HCC) Start: 11-10-2022 End: 11-10-2022 Subsequent hospital visit by physician X[facility] Work Phone: Radiology Comment on above: Chronic left sacroil iac pain [M53.3, G89.29] Start: 11-10-2022 End: 11-10-2022 Patient encounter procedure Rip Rivers DO Work Phone: [facility] Start: 11-10-2022 End: 11-10-2022 ambulatory Lab/[place] [facility] Work Phone: Hematology/Oncology Comment on above: [...] Non-patient / Non-visit Dr. Montanez Work Phone: [facility] Start: 11-03-2022 End: 11-03-[address] Mitch Mejia Work Phone: [facility] Work Phone: Start: 10-20-2022 [...] encounter procedure Rip Rivers DO Work Phone: [facility] Start: 10-18-2022 End: 10-18-2022 ambulatory Lab/[place] [facility] Work Phone: Hematology/Oncology Comment on above: Malignant neoplasm m etastatic to lung, unspecified laterality (HCC); Malignant neoplasm metastatic to bone (HCC); Malignant neoplasm of lower-inner quadrant of right breast of female, estrogen receptor positive (HCC) Start: 10-18-2022 End: 10-18-2022 Subsequent hospital visit by physician Ct [facility] ([facility]) Work Phone: Cat Scan Comment on above: Malignant neoplasm o f lower-inner quadrant of right breast of female, estrogen receptor positive (HCC) [C50.311, Z17.0] Start: 09-30-2022 End: 09-30-2022 ambulatory Treatment Rm 9 [place] [facility] Work Phone: Hematology/Oncology Comment on above: Malignant neoplasm m etastatic to lung, unspecified laterality (HCC) (Primary Dx); Malignant neoplasm metastatic to bone (HCC); Malignant neoplasm of lower-inner quadrant of right breast of female, estrogen receptor positive (HCC) Start: 09-29-2022 Refill Rip Gallardo Work Phone: Hematology/Oncology Comment on above: Refill Request Start: 09-22-2022 End: 09-22-2022 Subsequent hospital visit by physician Diagnostic Mammo [facility] Mammogram Start: 09-09-2022 End: 09-09-2022 ambulatory Treatment Rm 13 [place] [facility] Work Phone: Hematology/Oncology Comment on above: Malignant neoplasm m etastatic to bone (HCC) (Primary Dx); Malignant neoplasm metastatic to lung, unspecified laterality (HCC); Malignant neoplasm of lower-inner quadrant of right breast of female, estrogen receptor positive (HCC) Start: 09-08-2022 End: 09-08-2022 Patient encounter procedure Rip Rivers DO Work Phone: [facility] [place] Start: 09-08-2022 End: 09-08-2022 ambulatory Lab/Port [place] [facility] Work Phone: Hematology/Oncology Comment on above: [...] 08-24-2022 Documentation procedure Mammog damaris Coordinator [facility] Start: 08-24-2022 Letter encounter Mammography Coordinator [facility] Department Start: 08-24-2022 Telephone encounter Rip perez DO Work Phone: Hematology/Oncology Comment on above: Results (Screening m ammogram) Start: 08-23-2022 End: 08-23-2022 Subsequent hospital visit by physician Screen Mammo [facility] Mammogram Comment on above: Encounter for [...] encounter procedure Rip Rivers DO Work Phone: [facility] Start: 07-29-2022 Telephone encounter Rip perez DO Work Phone: Hematology/Oncology Comment on above: Results (CTs) Start: 07-29-2022 End: 07-29-2022 ambulatory Treatment 13 [place] [facility] Work Phone: Hematology/Oncology Comment on above: [...] End: 07-29-2022 Patient encounter procedure Caity Cote APRN.CLIENT REPORTING ASSOCIATE Work Phone: [facility] [employer] Start: 07-27-2022 End: 07-27-2022 Subsequent hospital visit by physician Ct Prep [facility] Cat Scan Comment on above: Malignant neoplasm o f lower-inner quadrant of right breast of female, estrogen receptor positive (HCC) [C50.311, Z17.0] Start: 07-08-2022 End: 07-08-2022 ambulatory Treatment 13 [facility] Work Phone: Hematology/Oncology Comment on above: Bone metastases (HCC ) (Primary Dx); Malignant neoplasm metastatic to lung, unspecified laterality (HCC); Malignant neoplasm of lower-inner quadrant of right breast of female, estrogen receptor positive (HCC) Start: 07-06-2022 End: 07-06-2022 Patient encounter procedure Rip Rivers DO Work Phone: [facility] [place] Start: 07-06-2022 End: 07-06-2022 ambulatory Lab/Port [facility] Work Phone: Hematology/Oncology Comment on above: [...] Non-visit Dr. Montanez Work Phone: [facility] Start: 06-25-2022 End: 06-25-[address] Mitch Mejia Work Phone: [facility] Work Phone: Start: 06-25-2022 End: 06-25-[address] Mitch Mejia Work Phone: [facility] Start: 06-17-2022 End: 06-17-2022 ambulatory Treatment Rm 5 [place] [facility] Work Phone: Hematology/Oncology Comment on above: Skin, metastatic can cer to (HCC) (Primary Dx); Bone metastases (HCC); Malignant neoplasm metastatic to lung, unspecified laterality (HCC); Malignant neoplasm of lower-inner quadrant of right breast of female, estrogen receptor positive (HCC) Start: 06-15-2022 End: 06-15-2022 Patient encounter procedure Caity Cote CLIENT REPORTING ASSOCIATE Work Phone: [facility] Start: 06-15-2022 End: 06-15-2022 ambulatory Lab/[place] [facility] Work Phone: Hematology/Oncology Comment on above: [...] End: 05-27-2022 ambulatory Treatment Rm 5 [place] [facility] Work Phone: Hematology/Oncology Comment on above: [...] encounter procedure Rip Rivers DO Work Phone: [facility] Start: 05-25-2022 End: 05-25-2022 ambulatory Lab/[place] [facility] Work Phone: Hematology/Oncology Comment on above: [...] lungs (HCC) Start: 05-21-2022 Refill Caity silverio APRN.CLIENT REPORTING ASSOCIATE Work Phone: Hematology/Oncology Comment on above: Refill Request Start: 05-10-2022 Refill Rip Hernandez Paulina Work Phone: Hematology/Oncology Comment on above: Refill Request Start: 05-06-2022 End: 05-06-2022 ambulatory Treatment Rm 5 [place] [facility] Work Phone: Hematology/Oncology Comment on above: Malignant neoplasm m etastatic to lung, unspecified laterality (HCC) (Primary Dx); Bone metastases (HCC); Malignant neoplasm of lower-inner quadrant of right breast of female, estrogen receptor positive (HCC); Chemotherapy induced diarrhea Start: 04-26-2022 End: 04-26-2022 ambulatory Lab/[place] [facility] Work Phone: Hematology/Oncology Comment on above: Malignant neoplasm m etastatic to lung, unspecified laterality (HCC) (Primary Dx) Start: 04-26-2022 End: 04-26-2022 Subsequent hospital visit by physician Ct Prep [facility] Cat Scan Comment on above: Malignant neoplasm o f lower-inner quadrant of right breast of female, estrogen receptor positive (HCC) [C50.311, Z17.0] Start: 04-22-2022 Non-patient / Non-visit Dr. Montanez Work Phone: [facility] Start: 04-22-2022 End: 04-22-[address] Mitch Mejia Work Phone: [facility] Work Phone: Start: 04-22-2022 End: 04-22-[address] Mitch Mejia Work Phone: [facility] Start: 04-19-2022 Telephone encounter Caity bhandari APRN.CNP Work Phone: Hematology/Oncology Comment on above: Electronic Communica tion Start: 04-15-2022 End: 04-15-2022 ambulatory Treatment Rm 5 [place] [facility] Work Phone: Hematology/Oncology Comment on above: Bone metastases (HCC ) (Primary Dx); Malignant neoplasm metastatic to lung, unspecified laterality (HCC); Malignant neoplasm of lower-inner quadrant of right breast of female, estrogen receptor positive (HCC) Start: 04-14-2022 Telephone encounter Rip perez DO Work Phone: Hematology/Oncology Comment on above: AVS Start: 04-14-2022 End: 04-14-2022 Patient encounter procedure Caity Cote APRN.CLIENT REPORTING ASSOCIATE Work Phone: [facility] Start: 04-14-2022 End: 04-14-2022 ambulatory Lab/[place] [facility] Work Phone: Hematology/Oncology Comment on above: [...] encounter procedure Dr. Mitch Mejia Work Phone: [facility] Start: 03-18-2022 End: 03-18-2022 ambulatory Treatment Rm 5 [place] [facility] Work Phone: Hematology/Oncology Comment on above: Malignant neoplasm m etastatic to lung, unspecified laterality (HCC) (Primary Dx); Bone metastases (HCC); Malignant neoplasm of lower-inner quadrant of right breast of female, estrogen receptor positive (HCC) Start: 03-01-2022 Telephone encounter Rip perez DO Work Phone: Hematology/Oncology Comment on above: Patient Update Start: 02-25-2022 End: 02-25-2022 ambulatory Treatment Rm 8 [facility] Work Phone: Hematology/Oncology Comment on above: Bone metastases (HCC ) (Primary Dx); Malignant neoplasm metastatic to lung, unspecified laterality (HCC); Malignant neoplasm of lower-inner quadrant of right breast of female, estrogen receptor positive (HCC) Start: 02-24-2022 End: 02-24-2022 Patient encounter procedure Caity Cote CLIENT REPORTING ASSOCIATE Work Phone: [facility] Start: 02-24-2022 End: 02-24-2022 ambulatory Lab/Port [place] [facility] Work Phone: Hematology/Oncology Comment on above: [...] End: 02-04-2022 [facility]ulatory [facility] Work Phone: Hematology/Oncology Comment on above: Bone metastases (HCC ) (Primary Dx); Malignant neoplasm metastatic to lung, unspecified laterality (HCC); Malignant neoplasm of lower-inner quadrant of right breast of female, estrogen receptor positive (HCC); Chemotherapy induced diarrhea Start: 02-03-2022 Refill Rip Gallardo Work Phone: Hematology/Oncology Comment on above: Refill Request Start: 02-03-2022 End: 02-03-2022 Patient encounter procedure Rip Rivers DO Work Phone: [facility] Start: 02-03-2022 End: 02-03-2022 ambulatory Lab/[place] [facility] Work Phone: Hematology/Oncology Comment on above: [...] End: 01-14-2022 ambulatory Treatment Rm 9 [place] [facility] Work Phone: Hematology/Oncology Comment on above: Bone metastases (HCC ) (Primary Dx); Malignant neoplasm metastatic to lung, unspecified laterality (HCC); Malignant neoplasm of lower-inner quadrant of right breast of female, estrogen receptor positive (HCC) Start: 01-08-2022 Non-patient / Non-visit Dr. Montanez Work Phone: [facility] Start: 01-08-2022 End: 01-08-[address] Mitch Mejia Work Phone: [facility] Start: 01-07-2022 Telephone encounter Rip perez DO Work Phone: Hematology/Oncology Comment on above: Orders Start: 01-07-2022 End: 01-07-2022 ambulatory Lab/Port [place] [facility] Work Phone: Hematology/Oncology Comment on above: Malignant neoplasm m etastatic to both lungs (HCC) (Primary Dx); Malignant neoplasm metastatic to lung, unspecified laterality (HCC); Bone metastases (HCC); Malignant neoplasm of lower-inner quadrant of right breast of female, estrogen receptor positive (HCC) Start: 01-07-2022 End: 01-07-2022 Subsequent hospital visit by physician Ct Prep [facility] Cat Scan Comment on above: Malignant neoplasm o f lower-inner quadrant of right breast of female, estrogen receptor positive (HCC) [C50.311, Z17.0] Start: 12-25-2021 Telephone encounter Rip perez DO Work Phone: Hematology/Oncology Comment on above: Patient Question Start: 12-24-2021 Telephone encounter Caity bhandari APRN.CNP Work Phone: Hematology/Oncology Comment on above: Orders Start: 12-24-2021 End: 12-24-2021 ambulatory Treatment 8 [facility] Work Phone: Hematology/Oncology Comment on above: Bone metastases (HCC ) (Primary Dx); Malignant neoplasm metastatic to lung, unspecified laterality (HCC); Malignant neoplasm of lower-inner quadrant of right breast of female, estrogen receptor positive (HCC) Start: 12-23-2021 End: 12-23-2021 Patient encounter procedure Caity Cote APRN.CLIENT REPORTING ASSOCIATE Work Phone: [facility] Start: 12-23-2021 End: 12-23-2021 ambulatory Lab/[place] [facility] Work Phone: Hematology/Oncology Comment on above: [...] encounter procedure Rip Rivers DO Work Phone: [facility] Start: 12-02-2021 End: 12-02-2021 ambulatory Lab/[place] [facility] Work Phone: Hematology/Oncology Comment on above: [...] 11-12-2021 End: 11-12-2021 ambulatory Treatment Rm 2 [facility] Work Phone: Hematology/Oncology Comment on above: [...] encounter procedure Rip Rivers DO Work Phone: [facility] Start: 11-09-2021 End: 11-09-2021 ambulatory Treatment Rm 6 [place] [facility] Work Phone: Hematology/Oncology Comment on above: Bone metastases (HCC ) (Primary Dx); Chemotherapy induced diarrhea Start: 11-06-2021 End: 11-06-2021 ambulatory Lab/Port [place] [facility] Work Phone: Hematology/Oncology Comment on above: Malignant neoplasm m etastatic to lung, unspecified laterality (HCC); Bone metastases (HCC); Malignant neoplasm of lower-inner quadrant of right breast of female, estrogen receptor positive (HCC) Start: 11-06-2021 End: 11-06-2021 Subsequent hospital visit by physician [facility] ([facility]) Work Phone: Cat Scan Comment on above: Malignant neoplasm o f lower-inner quadrant of right breast of female, estrogen receptor positive (HCC) [C50.311, Z17.0] Start: 10-27-2021 Non-patient / Non-visit Dr. Montanez Work Phone: [facility] Start: 10-27-2021 End: 10-27-[address] Mitch Mejia Work Phone: [facility] Start: 10-22-2021 End: 10-22-2021 ambulatory Treatment Rm 12 [place] [facility] Work Phone: Hematology/Oncology Comment on above: Bone metastases (HCC ) (Primary Dx); Malignant neoplasm metastatic to lung, unspecified laterality (HCC); Malignant neoplasm of lower-inner quadrant of right breast of female, estrogen receptor positive (HCC) Start: 10-21-2021 Telephone encounter Caity bhandari VE TEACHER.CLIENT REPORTING ASSOCIATE Work Phone: Hematology/Oncology Comment on above: Orders Start: 10-21-2021 End: 10-21-2021 Patient encounter procedure Caity Cote VE TEACHER.CLIENT REPORTING ASSOCIATE Work Phone: [facility] Start: 10-21-2021 End: 10-21-2021 ambulatory Lab/Port [facility] Work Phone: Hematology/Oncology Comment on above: [...] 10-01-2021 End: 10-01-2021 ambulatory Treatment Rm 9 [facility] Work Phone: Hematology/Oncology Comment on above: Bone metastases (HCC ) (Primary Dx); Malignant neoplasm metastatic to lung, unspecified laterality (HCC); Malignant neoplasm of lower-inner quadrant of right breast of female, estrogen receptor positive (HCC) Start: 09-30-2021 End: 09-30-2021 Patient encounter procedure Rip Rivres DO Work Phone: [facility] Start: 09-30-2021 End: 09-30-2021 ambulatory Lab/Port [facility] Work Phone: Hematology/Oncology Comment on above: [...] Dr. Mitch Mejia Work Phone: [facility] Start: 09-11-2021 Telephone encounter Carla Almonte RN He matology/Oncology Comment on above: Hot Kettle Tender - O ther (C1D1 Post Treatment Call ) Start: 09-10-2021 End: 09-10-2021 ambulatory Treatment Rm 3 [place] [facility] Work Phone: Hematology/Oncology Comment on above: Malignant neoplasm m etastatic to both lungs (HCC) (Primary Dx); Bone metastases (HCC); Malignant neoplasm metastatic to lung, unspecified laterality (HCC); Malignant neoplasm of lower-inner quadrant of right breast of female, estrogen receptor positive (HCC) Start: 09-09-2021 End: 09-09-[address] Work Phone: [facility] Start: 09-09-2021 End: 09-09-2021 Nutrition [...] Hematology/Oncology Comment on above: Psychosocial Assessm ent Hot Kettle Tender - O ther (Nutrition Consult/Treatment Question ) Start: 09-03-2021 End: 09-03-2021 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 Montanez Work Phone: [facility] Start: 07-13-2021 End: 07-13-[address] Mitch Mejia Work Phone: [facility] Procedures Date Procedure Procedure Detail Performing Clinician Start: 02-13-2025 CBC + DIFF Rip perez DO Work Phone: Start: 02-13-2025 Comprehensive metabo lic panel Rip Rivers DO Work Phone: Start: 01-29-[address] atten uation skull base mid-thigh Rip Rivers DO Work Phone: Start: 01-29-2025 Gluc bld gluc mntr d ev cleared fda spec home use [facility] Provider Start: 01-23-2025 Blood count complete auto&auto difrntl wbc Rip A Masci DO Work Phone: Start: 01-02-2025 Blood count complete auto&auto difrntl wbc Rip Bojra Masci DO Work Phone: Start: 12-27-2024 CREATININE BLD Caity Ca rpenter VE TEACHER.CLIENT REPORTING ASSOCIATE Work Phone: Start: 12-12-2024 Blood count complete [...] Start: 12-15-2023 CREATININE BLD Caity Ca rpenter VE TEACHER.CLIENT REPORTING ASSOCIATE Work Phone: Start: 12-14-2023 Blood count complete [...] End: 09-22-2022 Digital breast tomosynthesis unilateral Rip A Masci DO Work Phone: Start: 09-08-2022 Blood count complete auto&auto difrntl wbc Rip A Masci DO Work Phone: Start: 08-23-2022 MAXIM SCREENING W OMI Pa ul A Masci DO Work Phone: Start: 08-23-2022 Mammography [...] 04-26-2022 Ct abdomen & pelvis w/contrast material Dunlap Cote VE TEACHER.CLIENT REPORTING ASSOCIATE Work Phone: Start: 04-26-2022 Ct thorax w/contrast material Caity Cote VE TEACHER.CLIENT REPORTING ASSOCIATE Work Phone: Start: 04-14-2022 Blood count complete auto&auto difrntl wbc iRp Borja Masci DO Work Phone: Start: 03-18-2022 Blood count complete auto&auto difrntl wbc Rip Borja Masci DO Work Phone: Start: 02-24-2022 Blood count complete auto&auto difrntl wbc Rip Borja Masci DO Work Phone: Start: 02-03-2022 Blood count complete auto&auto difrntl wbc Rip Borja Masci DO Work Phone: Start: 01-07-2022 Ct abdomen & pelvis w/contrast material Dunlap Cote VE TEACHER.CLIENT REPORTING ASSOCIATE Work Phone: Start: 01-07-2022 Ct thorax w/contrast material Caity Cote VE TEACHER.CLIENT REPORTING ASSOCIATE Work Phone: Start: 01-07-2022 Blood count complete auto&auto difrntl wbc Rip Borja Masci DO Work Phone: Start: 12-23-2021 Blood count complete auto&auto difrntl wbc Rip Borja Masci DO Work Phone: Start: 12-02-2021 Blood count complete auto&auto difrntl wbc Rip Jollyi DO Work Phone: Start: 11-11-2021 Adult depression scr eening assessment Rip Masci DO Work Phone: Start: 11-06-2021 Ct abdomen & pelvis w/contrast material Caity Cote VE TEACHER.CLIENT REPORTING ASSOCIATE Work Phone: Start: 11-06-2021 Ct thorax w/contrast material Dunlap Cote VE TEACHER.CLIENT REPORTING ASSOCIATE Work Phone: Start: 11-06-2021 Blood count complete auto&auto difrntl wbc Rip Borja Masci DO Work Phone: Start: 10-21-2021 Blood count complete auto&auto difrntl wbc Dunlap Cote VE TEACHER.CLIENT REPORTING ASSOCIATE Work Phone: Start: 09-30-2021 Blood count complete auto&auto difrntl wbc Caity Cote VE TEACHER.CLIENT REPORTING ASSOCIATE Work Phone: Start: 09-07-2021 Us soft tissue head & neck real time imge docm Rip Jollyi DO Work Phone: Start: 09-02-2021 Blood count complete auto&auto difrntl wbc Dunlap Cote VE TEACHER.CLIENT REPORTING ASSOCIATE Work Phone: Start: 08-25-[address] atten uation skull base mid-thigh Rip Jollyi DO Work Phone: Start: 01-29-2021 Adult depression scr eening assessment Pet 2 Start: 05-18-2018 Mammography Pet 2 Start: 11-30-2016 Chemotherapy Chemotherapy Leesa Garcia Plan of Treatment Date Care Activity Detail Author Start: 02-14-2028 Diabetes Screening Diabetes Screenin g [facility] Start: 01-24-2028 Diabetes Screening Diabetes Screenin g [facility] Start: 01-03-2028 Diabetes Screening Diabetes Screenin g [facility] Start: 12-13-2027 Diabetes Screening Diabetes Screenin g [facility] Start: 11-22-2027 Diabetes Screening Diabetes Screenin g [facility] Start: 11-01-2027 Diabetes Screening Diabetes Screenin g [facility] Start: 10-11-2027 Diabetes Screening Diabetes Screenin g [facility] Start: 10-04-2027 Diabetes Screening Diabetes Screenin g [facility] Start: 09-06-2027 Diabetes Screening Diabetes Screenin g [facility] Start: 08-31-2027 Diabetes Screening Diabetes Screenin g [facility] Start: 08-16-2027 Diabetes Screening Diabetes Screenin g [facility] Start: 07-25-2027 Diabetes Screening Diabetes Screenin g [facility] Start: 07-04-2027 Diabetes Screening Diabetes Screenin g [facility] Start: 06-13-2027 Diabetes Screening Diabetes Screenin g [facility] Start: 05-23-2027 Diabetes Screening Diabetes Screenin g [facility] Start: 05-02-2027 Diabetes Screening Diabetes Screenin g [facility] Start: 04-11-2027 Diabetes Screening Diabetes Screenin g [facility] Start: 03-21-2027 Diabetes Screening Diabetes Screenin g [facility] Start: 02-26-2027 Diabetes Screening Diabetes Screenin g [facility] Start: 02-02-2027 Diabetes Screening Diabetes Screenin g [facility] Start: 01-15-2027 Diabetes Screening Diabetes Screenin g [facility] Start: 01-03-2027 Diabetes Screening Diabetes Screenin g [facility] Start: 12-13-2026 Diabetes Screening Diabetes Screenin g [facility] Start: 11-22-2026 Diabetes Screening Diabetes Screenin g [facility] Start: 11-01-2026 Diabetes Screening Diabetes Screenin g [facility] Start: 10-10-2026 Diabetes Screening Diabetes Screenin g [facility] Start: 09-20-2026 Diabetes Screening Diabetes Screenin g [facility] Start: 08-29-2026 Diabetes Screening Diabetes Screenin g [facility] Start: 08-09-2026 Diabetes Screening Diabetes Screenin g [facility] Start: 07-20-2026 Diabetes Screening Diabetes Screenin g [facility] Start: 04-26-2026 Diabetes Screening Diabetes Screenin g [facility] Start: 04-06-2026 Diabetes Screening Diabetes Screenin g [facility] Start: 03-16-2026 Diabetes Screening Diabetes Screenin g [facility] Start: 02-23-2026 Diabetes Screening Diabetes Screenin g [facility] Start: 02-02-2026 DIABETES SCREEN DIABETES SCREEN [facility] Start: 02-02-2026 Diabetes Screening Diabetes Screenin g [facility] Start: 01-12-2026 DIABETES SCREEN DIABETES SCREEN [facility] Start: 12-22-2025 DIABETES SCREEN [facility] Start: 12-01-2025 DIABETES SCREEN [facility] Start: 11-10-2025 DIABETES SCREEN [facility]CRE[facility] Start: 10-18-2025 DIABETES SCREEN DIABETES SCREEN [facility] Start: 09-30-2025 DIABETES SCREEN DIABETES SCREEN [facility] Start: 09-30-2025 End: 09-30-2025 Patient encounter procedure 09/30/2025 10:40 AM EDT Office Visit [facility] [address] [place] [address] Isac Billingsley MD [address] [facility], [address] [place] [address] [facility] Start: 09-29-2025 Medicare Annual Well ness Visit Medicare Annual Wellness Visit (AWV) [facility] Start: 09-08-2025 DIABETES SCREEN DIABETES [...] 04-18-2025 End: 04-18-2025 ambulatory 04/18/2025 8:30 AM [facility] Hematology/Oncology [address] [place] [address] Q3WK ONTRUZANT(PORT)/LAB&OV 04/17* THUR EARLY AM APPTS [...] AM EDT Infusion Center Hematology/Oncology [address] [place], [place] [id number] Q3MO ZOMETA/Q3WK ONTRUZANT(PORT)/LAB&OV 03/27* THUR EARLY AM [...] EDT Infusion Center Hematology/Oncology [address] [place] [address] Q3WK ONTRUZANT(PORT)/LAB&OV 03/06* THUR EARLY AM APPTS [...] [email or web address] Location: W-ON TREAT MENT VISIT Start: 02-25-2025 End: 02-25-2025 Patient encounter procedure 02/25/2025 2:00 PM EDT Appointment Radiation Oncology [address] [place] [address] Location: [email or web address] Radiation Oncology Comment on above: Location: [email or web address] Start: 02-24-2025 DIABETES SCREEN DIABETES SCREEN [facility] Start: 02-22-2025 End: 02-22-2025 Patient encounter procedure 02/22/2025 2:00 PM EDT Appointment Radiation Oncology [address] [place] [address] Location: [email or web address] Radiation Oncology Comment on above: Location: [email or web address] Start: 02-20-2025 End: 02-20-2025 Patient encounter procedure Radiation Oncology Comment on above: Location: [email or web address] RESIM WITH ABC SBRT Start: 02-15-2025 End: 02-15-2025 Specialty Pharmacy 02/15/2025 7:30 AM EDT Specialty Pharmacy [facility] [address] [place] [address] [address] [place] [address] Pharmacist, [facility] [address] [place] [address] Refill - Capecitabine [21DS Omnisys] C9/11 pt holding? msg RPh awaiting response from Sameer 02/08 holding until after RT [facility] Comment on above: Refill - Capecitabin e [21DS Omnisys] C9 pt holding? msg RPh awaiting response from MD FerraroSameer 02/08 holding until after RT Start: 02-14-2025 End: 02-14-2025 ambulatory 02/14/2025 9:00 AM EDT Infusion Center Hematology/Oncology [address] [place] [address] Q3WK ONTRUZANT(PORT)/LAB&OV 02/13* THUR EARLY AM APPTS - NEXT Q3MO ZOMETA DUE 03/28 Hematology/Oncology Comment on above: Q3WK ONTRUZANT(PORT) /LAB&OV 02/13* THUR EARLY AM APPTS - NEXT Q3MO ZOMETA DUE 03/28 Start: 02-14-2025 End: 02-14-2025 Patient encounter procedure 02/14/2025 7:00 AM EDT Appointment Radiology [address] [place] [address] Dx: Nontoxic single thyroid nodule [E04.1] Radiology Comment on above: Dx: Nontoxic single thyroid nodule [E04.1] Start: 02-13-2025 End: 02-13-2025 ambulatory Hematology/Oncology Comment on above: (SO)CBC/CMP(S)(PORT) /OV TODAY* OV/LABS EARLY(PORT)C HEMO 02/14* MASCI - WED EARLY AM APPTS Start: 02-11-2025 End: 02-11-2025 Specialty Pharmacy 02/11/2025 8:45 AM EDT Specialty Pharmacy [facility] [place] [address] Pharmacist, [facility] [address] [place] [address] [place] [address] Refill - Capecitabine [21DS Omnisys] C9 pt holding? msg RPh awaiting response from 02/07 [facility] Comment on above: Refill - Capecitabin e [21DS Omnisys] C9 pt holding? msg [facility] awaiting response from 02/07 Start: 02-07-2025 End: 02-07-2025 Specialty Pharmacy 02/07/2025 7:45 AM EDT Specialty Pharmacy [facility] [address] [facility] [place] [address] Pharmacist, [facility] 1 [facility] [place] [address] Refill - Capecitabine [21DS Omnisys] [facility] Comment on above: Refill - Capecitabin e [21DS Omnisys] Start: 02-06-2025 End: 02-06-2025 Patient encounter procedure 02/06/2025 8:00 AM EDT Office Visit Radiation Oncology [address] [place], [place] [id number] Meenu Garay MD [address] [place], [place] [id number] OV/PET SCAN 01/29 Radiation Oncology Comment on above: OV/PET SCAN 01/29 Start: 02-04-2025 Influenza vaccination Influenza Vacc ine (#1) 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]; Malignant neoplasm metastatic to lung, unspecified laterality (HCC) [C78.00] Start: 01-24-2025 End: 01-24-2025 ambulatory 01/24/2025 8:30 AM EDT Infusion Center Hematology/Oncology [address] [place] [id number] Q3WK ONTRUZANT(PORT)/LAB&OV 01/23* THUR EARLY AM APPTS [...] EDT Specialty Pharmacy [facility] [address] [place] [id number] Pharmacist, [facility] [address] [place] [address] [place] [address] Refill - Capecitabine [21DS Omnisys] [facility] Comment on above: Refill - Capecitabin e [21DS Omnisys] Start: 01-07-2025 DIABETES SCREEN DIABETES SCREEN [facility] Start: 01-03-2025 End: 01-03-2025 ambulatory Hematology/Oncology Comment [...] AM EDT Specialty Pharmacy [facility] [address] [place] [address] Pharmacist, [facility] [address] [place] [address] [place] [address] Refill - Capecitabine [DS Omnisys] ref rqst 12/25 MRI 12/27 labs/OV [...] cardiomyopathy (HCC) Expected: 12/26/2024 (Approximate), Expires: 03/27/[address] [facility] Comment on above: Expected: 12/26/2024 (Approximate), [...] cardiomyopathy (HCC) Expected: 12/26/2024 (Approximate), Expires: 01/11/2026 [facility] Work Phone: Comment on above: [...] cardiomyopathy (HCC) Expected: 12/26/2024 (Approximate), Expires: 01/11/[address] [facility] Comment on above: Expected: 12/26/2024 (Approximate), Expires: 01/11/2026 Start: 12-26-2024 End: 12-26-2024 ambulatory 12/26/2024 1:[address] [facility] Hematology/Oncology [address] [place], [place] [id number] Wstr, Lab/Port [facility] [address], [place] [address] ACCESS PORT FOR CT Hematology/Oncology Comment on [...] [id number]] Start: 12-23-2024 DIABETES SCREEN DIABETES SCREEN [facility] Start: 12-13-2024 End: 12-13-2024 ambulatory Hematology/Oncology Comment [...] AM EDT Specialty Pharmacy [facility] [address] [place], [place] [id number] Pharmacist, [facility] [address] [place] [address] [place] [address] Refill - Capecitabine [21DS Omnisys] C012/13 RTS 12/05 LVM 12/05 [facility] Comment on above: Refill - Capecitabin e [21DS Omnisys] C012/13 RTS 12/05 LVM 12/05 Start: 12-06-2024 End: 12-06-2024 Specialty Pharmacy 12/06/2024 7:30 AM EDT Specialty Pharmacy [facility] [address] [place] [address] Pharmacist, [facility] [address] [place] [address] [place] [address] Refill - Capecitabine [21DS Omnisys] C012/13 [facility] Comment on above: Refill - Capecitabin e [21DS Omnisys] C012/13 Start: 12-02-2024 DIABETES SCREEN DIABETES SCREEN [facility] Start: 11-29-2024 End: 11-29-2024 ambulatory 11/29/2024 2:00 PM EDT Infusion Center Hematology/Oncology [address] [place], [place] [id number] Q3WK ONTRUZANT(PORT)/LAB&OV 11/28* - WED/THUR APPTS -Q3MO ZOMETA DUE AGAIN 12/20 Hematology/Oncology Comment on above: Q3WK ONTRUZANT(PORT) /LAB&OV 11/28* - WED/THUR APPTS -Q3MO ZOMETA DUE AGAIN 12/20 Start: 11-28-2024 End: 11-28-2024 ambulatory Hematology/Oncology Comment on above: (SO)CBC/CMP(S)(PORT) /OV TODAY* OV/LABS EARLY(PORT)C HEMO 11/29* - WED/THUR APPTS - CAITY OR MASCI Start: 11-22-2024 End: 11-22-2024 ambulatory 11/22/2024 9:[address] [facility] Hematology/Oncology [address] [place] [address] Q3WK ONTRUZANT(PORT)/LAB&OV 11/21* - THUR EARLY AM [...] AM EDT Specialty Pharmacy [facility] [address] [place], [place] [address] [place] [address] Pharmacist, [facility] [address] [place] [address] Refill - Capecitabine [21DS Omnisys] C011/22 [facility] [...] above: (SO)CBC/CMP(S)(PORT) /OV TODAY* OV/LABS EARLY(PORT)C HEMO /* - wed/amarilys appts OV/LABS EARLY(PORT)C HEMO /* - WED/THUR APPTS - CAITY OR RIKI Start: 11-06-2024 DIABETES SCREEN DIABETES SCREEN [facility] Start: 11-01-2024 End: 11-01-2024 ambulatory Hematology/Oncology Comment [...] AM EDT Specialty Pharmacy [facility] [address] [place], [place] [address] [place] [phone] Pharmacist, [facility] [address] [place] [address] [place] [address] Refill - Capecitabine [21D] -Omnisys] - See call log 10/10 pt called setting up refill call accordingly [facility] Comment on above: Refill - Capecitabin e [21D] -Omnisys] - See call log 10/10 pt called setting up refill call accordingly Start: 10-21-2024 DIABETES SCREEN DIABETES SCREEN [facility] Start: 10-18-2024 End: 10-18-2024 ambulatory Hematology/Oncology Comment [...] AM EDT Specialty Pharmacy [facility] [address] [place], [place] [address] [place] [address] Pharmacist, [facility] [address] [place] [address] [place] [address] Refill - Capecitabine [21D] - - [facility] Comment on above: Refill - Capecitabin e [21D] - C5/12 - Start: 09-30-2024 DIABETES SCREEN DIABETES SCREEN [facility] Start: 09-27-2024 End: 09-27-2024 ambulatory 09/27/2024 2:00 PM EDT Infusion Center Hematology/Oncology [address] [place] [address] Q3MO ZOMETA/Q3WK ONTRUZANT(PORT)/LAB&OV 09/26/MDCR* - wed/amarilys appts -Q3MO ZOMETA DUE AGAIN 12/20 Hematology/Oncology Comment on above: Q3MO ZOMETA/Q3WK ONT RUZANT(PORT)/LAB&OV 09/26/MDCR* - wed/amarilys appts -Q3MO ZOMETA DUE AGAIN 12/20 Start: 09-26-2024 COVID-19 Vaccine (7 - Moderna risk season) COVID-19 Vaccine (7 - Moderna risk season) [facility] Start: 09-26-2024 Covid-19 Vaccine (8 - Moderna risk season) Covid-19 Vaccine (8 - Moderna risk season) [facility] Start: 09-26-2024 End: 09-26-2024 ambulatory Hematology/Oncology Comment on above: (SO)CBC/CMP(S)(PORT) /OV TODAY* OV/LABS EARLY(PORT)C HEMO 09/27* - wed/amarilys appts Start: 09-17-2024 End: 09-17-2024 Specialty Pharmacy 09/17/2024 7:30 AM EDT Specialty Pharmacy [facility] [address] [place] [id number] [address] Pharmacist, [facility] [address] [place] [address] Refill - Capecitabine [21D] - - [facility] Comment on above: Refill - Capecitabin e [21D] - C4/21 - Start: 09-06-2024 End: 09-06-2024 ambulatory 09/06/2024 2:30 PM EDT Infusion Center Hematology/Oncology [address] [place] [address] Q3WK ONTRUZANT(PORT)/LAB&OV 4//MDCR* - wed/amarilys appts -Q3MO ZOMETA DUE 09/27 Hematology/Oncology Comment on above: Q3WK ONTRUZANT(PORT) /LAB&OV /MDCR* - wed/amarilys appts -Q3MO ZOMETA DUE 09/27 Start: 09-05-2024 End: 09-05-2024 ambulatory Hematology/Oncology Comment on above: (SO)CBC/CMP(S)(PORT) /OV TODAY* OV/LABS EARLY(PORT)C HEMO 4/3* - wed/amarilys appts OV/LABS EARLY(PORT)C HEMO 4/3* - wed/amarilys appts masci Start: 09-02-2024 DIABETES SCREEN DIABETES SCREEN [facility] Start: 08-30-2024 End: 08-30-2024 Patient encounter procedure 08/30/2024 9:20 AM EDT Appointment Cat Scan [address] [place] [address] Malignant neoplasm of lower-inner quadrant of right breast of female, estrogen r... Cat Scan Comment on above: Malignant neoplasm o f lower-inner quadrant of right breast of female, estrogen r... Start: 08-30-2024 End: 08-30-2024 ambulatory 08/30/2024 9:00 AM EDT Infusion Center Hematology/Oncology [address] [place] [address] Wstr, Lab/Port [place] [facility] [address] [place] [address]* Hematology/Oncology Comment on above: ACCESS PORT FOR CT* Start: 08-30-2024 End: 08-30-2024 Patient encounter procedure Radiology Comment on above: History of thyroid n odule [Z86.39] Malignant neoplasm o f lower-inner quadrant of right breast of female, estrogen r... Start: 08-27-2024 End: 08-27-2024 Specialty Pharmacy 08/27/2024 7:00 AM EDT Specialty Pharmacy [facility] [address] [place] [address] [place] [address] Pharmacist, [facility] [address] [place] [address] [place] [address] Refill - Capecitabine [21DS] C03/31 [facility] Comment on above: Refill - Capecitabin e [21DS] C03/31 Start: 08-16-2024 End: 08-16-2024 ambulatory 08/16/2024 2:30 PM EDT Infusion Center Hematology/Oncology [address] [place] [address] Q3WK ONTRUZANT(PORT)/LAB&OV 08/15/MDCR* - wed/amarilys appts -Q3MO ZOMETA DUE 09/27 Hematology/Oncology Comment on above: Q3WK ONTRUZANT(PORT) /LAB&OV 08/15/MDCR* - wed/amarilys appts -Q3MO ZOMETA DUE 09/27 Start: 08-15-2024 End: 08-15-2024 ambulatory Hematology/Oncology Comment on above: (SO)CBC/CMP(S)(PORT) /OV TODAY* OV/LABS EARLY(PORT)C HEMO 08/16* - tue/amarilys appts Start: 08-12-2024 DIABETES SCREEN DIABETES SCREEN [facility] Start: 08-06-2024 End: 08-06-2024 Specialty Pharmacy [facility] Comment on above: Refill - Capecitabin e [21D] - C3/10 - Dose Reduction, refill req'd 2/10 Refill - Capecitabin e [21D] - C3/10 - Dose Reduction on file Start: 07-26-2024 End: 07-26-2024 ambulatory 07/26/2024 2:00 PM EST Infusion Center Hematology/Oncology [address] [place] [address] Q3WK ONTRUZANT(PORT)/LAB&OV 07/25/MDCR* - wed/amarilys appts -Q3MO ZOMETA DUE 09/27 Hematology/Oncology Comment on above: Q3WK ONTRUZANT(PORT) /LAB&OV 07/25/MDCR* - wed/amarilys appts -Q3MO ZOMETA DUE 09/27 Start: 07-25-2024 End: 07-25-2024 ambulatory Hematology/Oncology Comment on above: (SO)CBC/CMP(S)(PORT) /OV TODAY* OV/LABS EARLY(PORT)C HEMO2/* - wed/amarilys appts OV/LABS EARLY(PORT)C HEMO 07/26* - wed/amarilys appts masci Start: 07-16-2024 End: 07-16-2024 Specialty Pharmacy 07/16/2024 7:00 AM EST Specialty Pharmacy [facility] [address] [employer] [facility] [place] [address] Pharmacist, [facility] [address] [place] [address] [place] [address] Refill - Capecitabine [21DS Omnisys Tukysa w/ PAP] C007/23 [facility] Comment on above: Refill - Capecitabin e [DS Omnisys Tukysa w/ PAP] C007/23 Start: 07-05-2024 End: 07-05-2024 ambulatory 07/05/2024 2:30 PM EST Infusion Center Hematology/Oncology [address], [place] [address] Q3MO ZOMETA/Q3WK ONTRUZANT(PORT)/LAB&OV 07/04/MDCR* - wed/amarilys appts [...] AM EST Specialty Pharmacy [facility] [employer] [address] [place] [address] Pharmacist, [facility] [address] [place] [address] [place] [address] Refill - Capecitabine [21DS Omnisys [...] EST Specialty Pharmacy [facility] [address] [place] [id number] Pharmacist, Specialty[address] [address] Refill - Capecitabine [21DS Omnisys Tukysa w/ PAP] C006/11 - refill rqst 06/01 [facility] Comment on above: Refill - Capecitabin e [21DS Omnisys Tukysa w/ PAP] C006/11 - refill rqst 06/01 Start: 06-06-2024 Advance Directive Discussion Advance Directive Discussion [facility] Start: 06-04-2024 End: 06-04-2024 Specialty Pharmacy 06/04/2024 7:45 AM EST Specialty Pharmacy [facility] [address] [place] [address] Pharmacist, [facility] [address] [place] [address] [place] [address] Refill - Capecitabine [21DS Omnisys [...] 10:00 AM(patie nt request d/t family in town)/Q3WK ONTRUZANT/(PORT)/LAB&OV 05/23/MDCR* - wed/amarilys appts -Q3MO ZOMETA DUE 07/05 Start: 05-23-2024 Covid-19 Vaccine ( season) Covid-19 Vaccine ( season) [facility] Start: 05-23-2024 End: 05-23-2024 ambulatory Hematology/Oncology Comment on above: (SO)CBC/CMP(S)(PORT) /OV TODAY* OV/LABS EARLY(PORT)C HEMO 05/24* - wed/amarilys appts Start: 05-14-2024 End: 05-14-2024 Specialty Pharmacy 05/14/2024 7:30 AM EST Specialty Pharmacy [facility] [address] [place] [address] Pharmacist, [facility] [address] [place] [address] [place] [address] Refill - Capecitabine [21DS Omnisys Tukysa w/ PAP] C12 [facility] Comment on above: Refill - Capecitabin e [21DS Omnisys Tukysa w/ PAP] C12 Start: 05-04-2024 End: 05-04-2024 ambulatory 05/04/2024 2:00 PM EST Infusion Center Hematology/Oncology [address] [place] [address] NO THUR APPT DUE TO HOLIDAY Hematology/Oncology Comment on above: NO THUR APPT DUE TO HOLIDAY Start: 05-02-2024 End: 05-02-2024 ambulatory Hematology/Oncology Comment on above: (SO)CBC/CMP(S)(PORT) /OV TODAY* OV/LABS EARLY(PORT)C HEMO 05/04* - wed/amarilys appts Start: 04-24-2024 End: 04-24-2024 ambulatory 04/24/2024 10:00 AM EST Infusion Center Hematology/Oncology [address] [place] [address] Wstr, Lab/Port [facility] [address] [place] [address] Hematology/Oncology Comment on above: ACCESS PORT FOR CT Start: 04-24-2024 End: 04-24-2024 Patient encounter procedure Cat Scan Comment on above: Malignant neoplasm o f lower-inner quadrant of right breast of female, estrogen receptor positive (HCC) [C50.311, Z17.0] Start: 04-20-2024 End: 04-20-2024 Specialty Pharmacy 04/20/2024 7:15 AM EST Specialty Pharmacy [facility] [address] [place] [id number] [address] Pharmacist, [facility] [address] [place] [address] [place] [address] Refill - Capecitabine [21DS Omnisys Tukysa w/ PAP] [facility] Comment on above: Refill - Capecitabin e [21DS Omnisys Tukysa w/ PAP] Start: 04-12-2024 End: 04-12-2024 ambulatory 04/12/2024 9:30 AM EST Infusion Center Hematology/Oncology [address] [place] [address] Q3WK ONTRUZANT/Q3MO ZOMETA(PORT)/LAB&OV 04/11/MDCR* - wed/amarilys appts -Q3MO ZOMETA DUE 07/05 Hematology/Oncology Comment on above: Q3WK ONTRUZANT/Q3MO ZOMETA(PORT)/LAB&OV 04/11/MDCR* - wed/amarilys appts -Q3MO ZOMETA DUE 07/05 Start: 04-11-2024 End: 04-11-2024 ambulatory Hematology/Oncology Comment on above: (SO)CBC/CMP(S)(PORT) /OV TODAY* OV/LABS EARLY(PORT)C HEMO 04/12* - tue/amarilys appts Start: 03-30-2024 End: 03-30-2024 Specialty Pharmacy 03/30/2024 7:30 AM EDT Specialty Pharmacy [facility] [address] [place], [place] [id number] [place], [place] [id number] Pharmacist, [facility] [address] [place] [address] Refill - Capecitabine [21DS Omnisys Tukysa [...] 03/08 (SO)CBC/CMP(S)(PORT) /OV TODAY* OV/LABS EARLY(PORT)C HEMO 10/17* - wed/amarilys appts Start: 03-20-2024 End: 03-20-2024 ambulatory Hematology/Oncology Comment on above: (SO)CBC/CMP(S)(PORT) /OV TODAY* OV/LABS EARLY(PORT)C HEMO 03/21* Start: 03-12-2024 End: 03-12-2024 Specialty Pharmacy 03/12/2024 7:30 AM EDT Specialty Pharmacy [facility] [address] [place] [address] Pharmacist, [facility] [address] [place] [address] [place] [address] Refill - Capecitabine [21DS Omnisys Tukysa w/ PAP] [facility] Comment on above: Refill - Capecitabin e [21DS Omnisys Tukysa w/ PAP] Start: 02-28-2024 End: 02-28-2024 ambulatory Hematology/Oncology Comment on above: Q3WK ONTRUZANT(PORT) /LAB & OV 02/26/MDCR* Q3MO ZOMETA DUE 03/08 Q3WK ONTRUZANT(PORT) /LAB & OV 02/26/MDCR* tue/tue appts Start: 02-27-2024 End: 02-27-2024 ambulatory Hematology/Oncology Comment on above: (SO)CBC/CMP(S)(PORT) /OV TODAY* OV/LABS EARLY(PORT)C HEMO 02/27* Start: 02-20-2024 End: 02-20-2024 Specialty Pharmacy 02/20/2024 7:30 AM EDT Specialty Pharmacy [facility] [address] [place] [address] Pharmacist, [facility] [address] [place] [address] [place] [address] Refill - Capecitabine [21DS Omnisys Tukysa w/ PAP] C002/26 - [facility] Comment on above: Refill - Capecitabin e [21DS Omnisys Tukysa w/ PAP] C002/26 - Start: 02-16-2024 End: 02-16-2024 ambulatory 02/16/2024 3:00 PM EDT Infusion Center Hematology/Oncology [address] [place] [address] Q3WK ONTRUZANT(PORT)/LAB & OV 02/14/MDCR* Q3MO ZOMETA DUE 03/08 Hematology/Oncology Comment on above: Q3WK ONTRUZANT(PORT) /LAB & OV 02/14/MDCR* Q3MO ZOMETA DUE 03/08 Start: 02-15-2024 End: 02-15-2024 ambulatory Hematology/Oncology Comment on above: (SO)CBC/CMP(S)(PORT) /OV TODAY* OV/LABS EARLY(PORT)C HEMO 02/15* Start: 02-08-2024 End: 02-08-2024 ambulatory 02/08/2024 8:30 AM EDT Infusion Center Hematology/Oncology [address] [place] [address] Q3WK ONTRUZANT(PORT)/LAB & OV 02/02/MDCR* Q3MO ZOMETA DUE 03/08 Hematology/Oncology Comment on above: Q3WK ONTRUZANT(PORT) /LAB & OV 02/02/MDCR* Q3MO ZOMETA DUE 03/08 Start: 02-05-2024 Covid-19 Vaccine ( season) Covid-19 Vaccine ( season) [facility] Start: 02-05-2024 Covid-19 Vaccine ( season) Covid-19 Vaccine ( season) [facility] Start: 02-05-2024 Influenza vaccination [facility] Start: 02-03-2024 End: 02-03-2024 ambulatory Hematology/Oncology Comment on above: (SO)CBC/CMP(S)(PORT) /OV TODAY* OV/LABS EARLY(PORT)C HEMO 02/07* Start: 01-30-2024 End: 01-30-2024 Specialty Pharmacy 01/30/2024 7:30 AM EDT Specialty Pharmacy [facility] [address] [place] [address] Pharmacist, [facility] [address] [address] Refill - Capecitabine [21DS Omnisys Tukysa w/ PAP] C002/02 - LVM 01/25 [facility] Comment on above: Refill - Capecitabin e [21DS Omnisys Tukysa w/ PAP] C0830 - LVM 01/25 Start: 01-27-2024 End: 01-27-2024 Specialty Pharmacy 01/27/2024 7:00 AM EDT Specialty Pharmacy [facility] [address] [place] [address] Drive [address] [place] [address] Pharmacist, [facility] [address] [place] [address] [place] [address] Refill - Capecitabine [21DS Omnisys Tukysa w/ PAP] C002/02 [facility] Comment on above: Refill - Capecitabin e [21DS Omnisys Tukysa w/ PAP] C002/02 Start: 01-26-2024 End: 01-26-2024 ambulatory 01/26/2024 3:[address] [facility] Hematology/Oncology [address] [place] [address] Q3WK ONTRUZANT(PORT)/LAB & OV 01/24/MDCR* Q3MO ZOMETA DUE 03/08 Hematology/Oncology Comment on above: Q3WK ONTRUZANT(PORT) /LAB & OV 01/24/MDCR* Q3MO ZOMETA DUE 03/08 Start: 01-25-2024 End: 01-25-2024 ambulatory Hematology/Oncology Comment on above: (SO)CBC/CMP(S)(PORT) /OV TODAY* OV/LABS EARLY(PORT)C HEMO 01/25* Start: 01-16-2024 End: 01-16-2024 Follow-up encounter 01/16/2024 3:30 PM EDT [facility] Radiation Oncology [address] [place] [phone] Meenu Garay MD [address] [place] [phone] 3 MO FOLLOW UP/CT 01/10* Radiation Oncology Comment on above: 3 MO FOLLOW UP/CT 01/10* Start: 01-16-2024 End: 01-16-2024 ambulatory 01/16/2024 9:[address] [facility] Hematology/Oncology [address] [place] [id number] (SO)CBC/CMP(S) /Q3WK ONTRUZANT(PORT)MDCR* Q3MO ZOMETA DUE 03/08 Hematology/Oncology Comment on above: (SO)CBC/CMP(S) /Q3WK ONTRUZANT(PORT)MDCR* Q3MO ZOMETA DUE 03/08 Start: 01-11-2024 End: 11-26-2024 CT Chest WO contrast CT CHEST WO IVCON Radiology Routine Secondary malignant neoplasm of right lung (HCC) Expected: 01/11/2024 (Approximate), Expires: 11/26/2024 [facility] Work Phone: Comment on above: Expected: 01/11/2024 (Approximate), Expires: 11/26/2024 Start: 01-11-2024 End: 01-11-2024 Patient encounter procedure 01/11/2024 9:00 AM EDT Appointment Cat Scan [address] [place] [address] Secondary malignant neoplasm of right lung (HCC) [...] Appointment Cat Scan [address] [place] [phone] Malignant neoplasm of lower-inner quadrant of right [...] AM EDT Specialty Pharmacy [facility] [address] [place], [place] [id number] [place] [address] Pharmacist, [facility] [address] [place] [address] Refill - Capecitabine [21DS Omni Tukysa w/ PAP] C001/05 [facility] Comment on above: Refill - Capecitabin e [21DS Omni Tukysa w/ PAP] C08/ Start: 12-22-2023 End: 12-22-2023 ambulatory 12/22/2023 10:45 AM EDT Infusion Center Hematology/Oncology [address] [place] [address] Wstr, Lab/Port [place] [address] [place] [address] PORT ACCESS FOR IMAGING* Hematology/Oncology Comment on [...] PM EDT Infusion Center Hematology/Oncology [address] [place] [address] Q3WK ONTRUZANT/Q3MO ZOMETA(PORT)/LAB & OV 12/13/MDCR* Q3MO ZOMETA DUE 03/08 Hematology/Oncology Comment on above: Q3WK ONTRUZANT/Q3MO ZOMETA(PORT)/LAB & OV 12/13/MDCR* Q3MO ZOMETA DUE 03/08 Start: 12-14-2023 End: 12-14-2023 ambulatory Hematology/Oncology Comment on above: (SO)CBC/CMP(S)(PORT) /OV TODAY* OV/LABS EARLY(PORT)C HEMO 12/14* OV/LABS EARLY(PORT)C HEMO 12/14* [facility] Start: 12-09-2023 End: 12-09-2023 Specialty Pharmacy 12/09/2023 7:00 AM EDT Specialty Pharmacy [facility] [address] [place], [place] [id number] [place] [address] Pharmacist, [facility] [address] [place] [address] [place] [address] Refill - Capecitabine [21DS Omni Tukysa w/ PAP] C012/15 [facility] Comment on above: Refill - Capecitabin e [21DS Omni Tukysa w/ PAP] C012/15 Start: 11-24-2023 End: 11-24-2023 ambulatory 11/24/2023 3:30 PM EDT Infusion Center Hematology/Oncology [address] [place] [address] Q3WK ONTRUZANT(PORT)/LAB & OV 11/22/MDCR* Q3MO ZOMETA DUE 12/14 Hematology/Oncology Comment on above: Q3WK ONTRUZANT(PORT) /LAB & OV 11/22/MDCR* Q3MO ZOMETA DUE 12/14 Start: 11-23-2023 End: 11-23-2023 ambulatory Hematology/Oncology Comment on above: (SO)CBC/CMP(S)(PORT) /OV TODAY* OV/LABS EARLY(PORT)C HEMO 11/23* Start: 11-18-2023 End: 11-18-2023 Specialty Pharmacy [facility] Comment on above: Refill - Capecitabin e [21DS Omni] C6/22? Confirm Cycle start date. 10/31, asked pt to start med 11/03 Refill - Capecitabin e [21DS Omni Tukysa PAP] C6/? Confirm Cycle start date. 10/31, asked pt to start med 11/03 Start: 11-11-2023 End: 11-11-2023 ambulatory Yvonne Carranzawn [facility] Laboratory Comment on above: CBC (SO)CBC Start: 11-03-2023 End: 11-03-2023 ambulatory 11/03/2023 3:30 PM EDT Infusion Center Hematology/Oncology [address] [place] [address] Q3WK ONTRUZANT(PORT)/LAB & OV 11/01/MDCR* Q3MO ZOMETA [...] PM EDT Infusion Center Hematology/Oncology [address] [place] [address] Q3WK ONTRUZANT(PORT)/LAB & OV 10/10/MDCR* Q3MO ZOMETA DUE 12/14 Hematology/Oncology Comment on above: Q3WK ONTRUZANT(PORT) /LAB & OV 10/10/MDCR* Q3MO ZOMETA DUE 12/14 Start: 10-11-2023 End: 10-11-2023 ambulatory Hematology/Oncology Comment on above: (SO)CBC/CMP(S)(PORT) /OV TODAY* OV/LABS EARLY(PORT)C HEMO 10/12* Start: 09-30-2023 End: 09-30-2023 Patient encounter procedure 09/30/2023 1:45 PM EDT Appointment Radiation Oncology [address] [place] [address] Location: [email or web address] Comment on above: Location: [email or web address] Start: 2023 End: 2023 Patient encounter procedure Radiation Oncology Comment on above: Location: [facility] Location: [facility] Start: 09-23-2023 Screening for malign ant neoplasm of breast Mammogram [facility] Start: 08-24-[address] [facility] Start: 08-24-2023 Screening for malign ant neoplasm of breast Mammogram Screening [facility] Start: 08-17-2023 [facility] Start: 08-16-2023 Venous catheter care management [facility] Start: 06-06-2023 Advance Directive Discussion Advance Directive Discussion [facility] Start: 06-06-2023 Behavioral Health Screening Behavioral Health Screening [facility] Start: 06-06-2023 Depression Assessment Depression Ass essment [facility] Start: 06-01-2023 End: 04-28-2024 Ct thorax w/o contrast material CT CHEST WO IVCON Radiology Routine Malignant neoplasm metastatic to left lung (HCC) Expected: 06/01/2023 (Approximate), Expires: 04/28/2024 [facility] Work Phone: Comment on above: Expected: 06/01/2023 (Approximate), Expires: 04/28/2024 Start: 05-25-2023 COVID-19 Vaccine (5 - Moderna series) COVID-19 Vaccine (5 - Moderna series) [facility] Start: 05-25-2023 Covid-19 Vaccine ( season) Covid-19 Vaccine () [facility] Start: 02-17-2023 Patient discharge [facility] Start: 02-17-2023 Venous catheter care management [facility] Start: 02-17-2023 Assessment of risk o f venous thromboembolism [facility] Start: 02-17-2023 Inhalation therapy procedure [facility] Start: 02-17-2023 Insertion of cathete r into peripheral vein [facility] Start: 02-17-2023 Measuring intake and output [facility] Start: 02-17-2023 Oxygen therapy [facility] Start: 02-17-2023 Providing care accor ding to standard [facility] Start: 02-17-2023 Provision of activit y privileges [facility] Start: 02-17-2023 [facility] Start: 02-17-2023 Verification routine [facility] Start: 02-17-2023 [facility] Start: 02-16-2023 Pulmonary ventilatio n perfusion study Quant Lung Vent/Perf Scan [facility] Start: 02-16-2023 Admission procedure [facility] Start: 02-16-2023 Venous catheter care management [facility] Start: 02-16-2023 [facility] Start: 02-04-2023 Covid-19 Vaccine ( season) Covid-19 Vaccine () [facility] Start: 02-04-[address] [facility] Start: 11-11-2022 Adult depression scr eening assessment DEPRESSION SCREENING [facility] Start: 07-26-2022 COVID-19 VACCINE (6 - Moderna series) COVID-19 VACCINE (6 - Moderna series) [facility] Start: 06-06-2022 ADVANCE DIRECTIVE DISCUSSION ADVANCE DIRECTIVE DISCUSSION [facility] Start: 06-06-2022 DEPRESSION ASSESSMENT DEPRESSION ASS ESSMENT [facility] Start: 02-04-2022 Influenza vaccination [facility] Start: 01-29-2022 Adult depression scr eening assessment DEPRESSION SCREENING [facility] Start: 01-17-2022 COVID-19 VACCINE (5 - Booster for Moderna series) COVID-19 VACCINE (5 - Booster for Moderna series) [facility] Start: 11-12-2021 COVID-19 VACCINE (5 - Booster for Moderna series) COVID-19 VACCINE (5 - Booster for Moderna series) [facility] Start: 07-03-2021 COVID-19 VACCINE (4 - Booster for Moderna series) COVID-19 VACCINE (4 - Booster for Moderna series) [facility] Start: 06-06-2021 ADVANCE DIRECTIVE DISCUSSION ADVANCE DIRECTIVE DISCUSSION [facility] Start: 06-06-2021 DEPRESSION ASSESSMENT DEPRESSION ASS ESSMENT [facility] Start: 02-04-2021 Influenza vaccination INFLUENZA (#1) [facility] Start: 06-06-2019 Medicare Annual Well ness Visit Medicare Annual Wellness Visit [facility] Start: 05-18-2019 Mammography MAMMOGRAM [facility] Start: 05-18-2019 Screening for malign ant neoplasm of cervix Cervical Cancer Screening [facility] Start: 2018 Pneumococcal Vaccine : 65+ Years (1 - PCV) Pneumococcal Vaccine: 65+ Years (1 - PCV) [facility] Start: 2018 PNEUMOVAX AGE 65 AND OVER WITH 5YR LOOKBACK (#1) PNEUMOVAX AGE 65 AND OVER WITH 5YR LOOKBACK (#1) 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 Start: 2013 RSV Vaccine (1 - Ris k 60-74 years 1-dose series) RSV Vaccine (1 - Risk 60-74 years 1-dose series) [facility] Start: 09-29-2003 Pneumococcal vaccination Pneum ococcal Vaccine (1 of 1 - PCV) [facility] Start: 09-29-2003 SHINGRIX VACCINE (1 of 2) FRIED GRIX VACCINE (1 of 2) [facility] Start: 09-29-2003 Zoster Vaccines (1 of 2) Zoste r Vaccines (1 of 2) [facility] Start: 1998 COLOGUARD (FIT-DNA) COLOGUARD (FIT-D NA) [facility] Start: 1998 Colonoscopy COLONOSCOPY [facility] Start: 1998 COLORECTAL CANCER SCREENING COLORECTAL CANCER SCREENING [facility] Start: [address] COLONOGRAPHY [facility] Start: 1998 FECAL OCCULT BLOOD FECAL OCCULT BLOO D [facility] Start: 1998 Lipid 1996 panel - S felix or Plasma Lipid Screening [facility] Start: 1998 Lipid panel Lipid Screening [facility] Start: 1998 LIPID SCREEN LIPID SCREEN [facility] Start: 1998 Screening for malign ant neoplasm of colon [facility] Start: 1998 SIGMOIDOSCOPY SIGMOIDOSCOPY [facility] Start: 09-29-1975 DTaP/Tdap/Td Vaccine s (1 - Tdap) DTaP/Tdap/Td Vaccines (1 - Tdap) [facility] Start: 1972 Pneumococcal Vaccine : 50+ (1 of 2 - PCV) Pneumococcal Vaccine: 50+ (1 of 2 - PCV) [facility] Start: 1972 SHINGRIX VACCINE (1 of 2) FRIED GRIX VACCINE (1 of 2) [facility] Start: 1972 Urine microalbumin profile [facility] Start: 09-29-1971 Anxiety Screening Anxiety Screening [facility] Start: 09-29-1971 Depression Screening Depression Scre ening [facility] Start: 09-29-1971 HEPATITIS C SCREENING HEPATITIS C SC REENING [facility] Start: 09-29-1971 Hepatitis C screening Hepatitis C [facility] Start: 09-29-1959 Pneumococcal Vaccine : 65+ (1 - PCV) Pneumococcal Vaccine: 65+ (1 - PCV) [facility] Start: 09-29-1959 Pneumococcal Vaccine : 65+ (1 of 2 - PCV) Pneumococcal Vaccine: 65+ (1 of 2 - PCV) [facility] Start: 09-29-1959 PNEUMOCOCCAL: 65+ (1 - PCV) PNEUMOCOCCAL: 65+ (1 - PCV) [facility] Start: 1953 Lipid panel Lipid Panel [facility] Start: 1953 Medicare Annual Well ness Visit Medicare Annual Wellness Visit (AWV) [facility] Start: 1953 Screening for malign ant neoplasm of colon [facility] Start: 1953 Screening for osteoporosis Bone Dens ity Scan [facility] End: 01-10-2025 CARDIO ONCOLOGY ECHO CARDIO ONCOLOGY ECHO Cardiology Routine Chemotherapy induced cardiomyopathy (HCC) Encounter for monitoring cardiotoxic drug therapy 1 Occurrences starting 01/11/2024 until 01/10/2025 [facility] Work Phone: Comment on above: [...] for 18 Occurrences starting 11/09/2022 until 11/09/2023 [facility] Work Phone: Comment on above: [...] of breast (HCC) 02/03/2024 9:19 AM EDT [facility] Work Phone: CBC W Auto Different ial panel - Blood COMPLETE BLOOD COUNT AND DIFFERENTIAL Lab STAT Malignant neoplasm of lower-inner quadrant of right breast of female, estrogen receptor positive (HCC) HER2-positive carcinoma of breast (HCC) Malignant neoplasm metastatic to bone (HCC) 02/13/2025 8:29 AM EDT [facility] Work Phone: End: 11-09-2023 Comprehensive metabolic 2000 panel - Serum or Plasma COMP METABOLIC PANEL Lab STAT Malignant neoplasm of lower-inner quadrant of right breast of female, estrogen receptor positive (HCC) Malignant neoplasm metastatic to bone (HCC) Malignant neoplasm metastatic to lung, unspecified laterality (HCC) Chemotherapy-induced cardiomyopathy (HCC) Every 3 weeks for 18 Occurrences starting 11/09/2022 until 11/09/2023 [facility] Work Phone: Comment on above: [...] (HCC) 1 Occurrences starting 10/21/2021 until 11/20/2022 [facility] Work Phone: Comment on above: 1 Occurrences starti ng 10/21/2021 until 11/20/2022 End: 01-22-2023 Ct abdomen & pelvis w/contrast material CT ABD/PEL W IVCON Radiology Routine Malignant neoplasm of lower-inner quadrant of right breast of female, estrogen receptor positive (HCC) Bone metastases (HCC) Malignant neoplasm metastatic to both lungs (HCC) Skin, 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) 1 Occurrences starting 12/23/2021 until 01/22/2023 [facility] Work Phone: Comment on above: 1 Occurrences starti ng 12/23/2021 until 01/22/2023 Ct abdomen & pelvis w/contrast material CT ABD/PEL W IVCON Radiology Routine Malignant neoplasm of lower-inner quadrant of right breast of female, estrogen receptor positive (HCC) Bone metastases (HCC) Malignant neoplasm metastatic to both lungs (HCC) Skin, 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) 01/07/2022 10:32 AM EDT [facility] Work Phone: End: 05-14-2023 Ct abdomen & pelvis w/contrast material CT ABD/PEL W IVCON Radiology Routine Malignant neoplasm of lower-inner quadrant of right breast of female, estrogen receptor positive (HCC) Bone metastases (HCC) 1 Occurrences starting 04/14/2022 until 05/14/2023 [facility] Work Phone: Comment on above: 1 Occurrences starti ng 04/14/2022 until 05/14/2023 End: 08-05-2023 Ct abdomen & pelvis w/contrast material CT ABD/PEL W IVCON Radiology Routine Malignant neoplasm of lower-inner quadrant of right breast of female, estrogen receptor positive (HCC) Bone metastases (HCC) Malignant neoplasm metastatic to both lungs (HCC) 1 Occurrences starting 07/06/2022 until 08/05/2023 [facility] Work Phone: Comment on above: 1 Occurrences starti ng 07/06/2022 until 08/05/2023 End: 08-28-2023 Ct abdomen & pelvis w/contrast material CT ABD/PEL W IVCON Radiology Routine Malignant neoplasm of lower-inner quadrant of right breast of female, estrogen receptor positive (HCC) Bone metastases (HCC) Malignant neoplasm metastatic to both lungs (HCC) 1 Occurrences starting 07/30/2022 until 08/28/2023 [facility] Work Phone: Comment on above: 1 Occurrences starti ng 07/30/2022 until 08/28/2023 End: 01-21-2024 Ct abdomen & pelvis w/contrast material CT ABD/PEL W IVCON Radiology Routine Malignant neoplasm of lower-inner quadrant of right breast of female, estrogen receptor positive (HCC) 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) Malignant neoplasm metastatic to both lungs (HCC) 1 Occurrences starting 12/22/2022 until 01/21/2024 [facility] Work Phone: Comment on above: [...] (HCC) 1 Occurrences starting 12/14/2023 until 01/12/2025 [facility] Work Phone: Comment on above: [...] Chemotherapy-induced neuropathy (HCC) 12/22/2023 11:48 AM EDT [facility] Work Phone: End: 04-21-2025 CT Abdomen and Pelvis W contrast IV CT ABD/PEL W IVCON Radiology Routine Malignant neoplasm of lower-inner quadrant of right breast of female, estrogen receptor positive (HCC) Malignant neoplasm metastatic to bone (HCC) Malignant neoplasm metastatic to both lungs (HCC) 1 Occurrences starting 03/21/2024 until 04/21/2025 [facility] Work Phone: Comment on above: 1 Occurrences starti ng 03/21/2024 until 04/21/2025 CT Abdomen and Pelvi s W contrast IV CT ABD/PEL W IVCON Radiology Routine Malignant neoplasm of lower-inner quadrant of right breast of female, estrogen receptor positive (HCC) Malignant neoplasm metastatic to bone (HCC) Malignant neoplasm metastatic to both lungs (HCC) 04/24/2024 11:01 AM EST [facility] Work Phone: End: 09-15-2025 CT Abdomen and Pelvis W contrast IV CT ABD/PEL W IVCON Radiology Routine Malignant neoplasm of lower-inner quadrant of right breast of female, estrogen receptor positive (HCC) Malignant neoplasm metastatic to bone (HCC) Malignant neoplasm metastatic to both lungs (HCC) 1 Occurrences starting 08/15/2024 until 09/15/[address] [facility] Comment on above: 1 Occurrences starti ng 08/15/2024 until 09/15/2025 CT Abdomen and Pelvi s W contrast IV CT ABD/PEL W IVCON Radiology Routine Malignant neoplasm of lower-inner quadrant of right breast of female, estrogen receptor positive (HCC) Malignant neoplasm metastatic to bone (HCC) Malignant neoplasm metastatic to both lungs (HCC) 08/30/2024 10:08 AM EDT [facility] CT Abdomen and Pelvi s W contrast IV CT ABD/PEL W IVCON Radiology Routine Malignant neoplasm of lower-inner quadrant of right breast of female, estrogen receptor positive (HCC) HER2-positive carcinoma of breast (HCC) Malignant neoplasm metastatic to bone (HCC) Malignant neoplasm metastatic to both lungs (HCC) Chemotherapy-induced cardiomyopathy (HCC) 12/27/2024 12:06 PM EDT [facility] Work Phone: End: 01-12-2025 CT Chest W contrast IV CT CHEST W IVCON Radiology Routine Malignant neoplasm of lower-inner quadrant of right breast of female, estrogen receptor positive (HCC) Malignant neoplasm metastatic to lung, unspecified laterality (HCC) Malignant neoplasm metastatic to bone (HCC) 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 Comment on above: 1 Occurrences starti [...] (HCC) Chemotherapy-induced neuropathy (HCC) 12/22/2023 11:48 AM T [facility] End: 04-20-2025 CT Chest W contrast IV CT CHEST W IVCON Radiology Routine Malignant neoplasm of lower-inner quadrant of right breast of female, estrogen receptor positive (HCC) Malignant neoplasm metastatic to bone (HCC) Malignant neoplasm metastatic to both lungs (HCC) 1 Occurrences starting 03/21/2024 until 04/20/[address] [facility] Comment on above: 1 Occurrences starti ng 03/21/2024 until 04/20/2025 CT Chest W contrast IV CT CHEST W IVCON Radiology Routine Malignant neoplasm of lower-inner quadrant of right breast of female, estrogen receptor positive (HCC) Malignant neoplasm metastatic to bone (HCC) Malignant neoplasm metastatic to both lungs (HCC) 04/24/2024 11:01 AM [facility]: 09-14-2025 CT Chest W contrast IV CT CHEST W IVCON Radiology Routine Malignant neoplasm of lower-inner quadrant of right breast of female, estrogen receptor positive (HCC) Malignant neoplasm metastatic to bone (HCC) Malignant neoplasm metastatic to both lungs (HCC) 1 Occurrences starting 08/15/2024 until 09/14/[address] [facility] Comment on above: 1 Occurrences starti ng 08/15/2024 until 09/14/2025 CT Chest W contrast IV CT CHEST W IVCON Radiology Routine Malignant neoplasm of lower-inner quadrant of right breast of female, estrogen receptor positive (HCC) Malignant neoplasm metastatic to bone (HCC) Malignant neoplasm metastatic to both lungs (HCC) 08/30/2024 10:08 AM [facility] Work Phone: CT Chest W contrast IV CT CHEST W IVCON Radiology Routine Malignant neoplasm of lower-inner quadrant of right breast of female, estrogen receptor positive (HCC) HER2-positive carcinoma of breast (HCC) Malignant neoplasm metastatic to bone (HCC) Malignant neoplasm metastatic to both lungs (HCC) Chemotherapy-induced cardiomyopathy (HCC) 12/27/2024 12:06 PM [facility] End: 01-22-2023 CT CHEST W IVCON CT CHEST W IVCON Radiology Routine Malignant neoplasm of lower-inner quadrant of right breast of female, estrogen receptor positive (HCC) Bone metastases (HCC) Malignant neoplasm metastatic to both lungs (HCC) Skin, 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) 1 Occurrences starting 12/23/2021 until 01/22/2023 [facility] Work Phone: Comment on above: 1 Occurrences starti ng 12/23/2021 until 01/22/2023 CT CHEST W IVCON CT CHEST W IVCO N Radiology Routine Malignant neoplasm of lower-inner quadrant of right breast of female, estrogen receptor positive (HCC) Bone metastases (HCC) Malignant neoplasm metastatic to both lungs (HCC) Skin, 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) 01/07/2022 10:32 AM [facility] Work Phone: End: 05-14-2023 CT CHEST W IVCON CT CHEST W IVCON Radiology Routine Malignant neoplasm of lower-inner quadrant of right breast of female, estrogen receptor positive (HCC) Bone metastases (HCC) 1 Occurrences starting 04/14/2022 until 05/14/2023 [facility] Work Phone: Comment on above: 1 Occurrences starti ng 04/14/2022 until 05/14/2023 End: 08-05-2023 CT CHEST W IVCON CT CHEST W IVCON Radiology Routine Malignant neoplasm of lower-inner quadrant of right breast of female, estrogen receptor positive (HCC) Bone metastases (HCC) Malignant neoplasm metastatic to both lungs (HCC) 1 Occurrences starting 07/06/2022 until 08/05/2023 [facility] Work Phone: Comment on above: 1 Occurrences starti ng 07/06/2022 until 08/05/2023 End: 08-29-2023 CT CHEST W IVCON CT CHEST W IVCON Radiology Routine Malignant neoplasm of lower-inner quadrant of right breast of female, estrogen receptor positive (HCC) Bone metastases (HCC) Malignant neoplasm metastatic to both lungs (HCC) 1 Occurrences starting 07/30/2022 until 08/29/2023 [facility] Work Phone: Comment on above: 1 Occurrences starti ng 07/30/2022 until 08/29/2023 End: 01-21-2024 CT CHEST W IVCON CT CHEST W IVCON Radiology Routine Malignant neoplasm of lower-inner quadrant of right breast of female, estrogen receptor positive (HCC) 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) Malignant neoplasm metastatic to both lungs (HCC) 1 Occurrences starting 12/22/2022 until 01/21/2024 [facility] Work Phone: Comment on above: 1 Occurrences starti ng 12/22/2022 until 01/21/2024 CT Chest WO contrast CT CHEST WO IVCON Radiology Routine Malignant neoplasm metastatic to left lung (HCC) 08/03/2023 10:10 AM EST [facility] Work Phone: CT Guidance for radi ation treatment of Unspecified body region CT SIM PLANNING RADIATION ONCOLOGY Radiology Routine Secondary malignant neoplasm of right lung (HCC) Ordered: 09/27/2023 [facility] Work Phone: Comment on above: Ordered: 09/27/2023 CT SIM PLANNING RADI ATION ONCOLOGY CT SIM PLANNING RADIATION ONCOLOGY Radiology Routine Malignant neoplasm metastatic to left lung (HCC) Ordered: 02/09/2023 [facility] Work Phone: Comment on above: [...] (HCC) 1 Occurrences starting 10/21/2021 until 11/20/2022 [facility] Work Phone: Comment on above: 1 Occurrences starti ng 10/21/2021 until 11/20/2022 End: 03-24-2024 Ct thorax w/o contrast material CT CHEST WO IVCON Radiology Routine Malignant neoplasm metastatic to bone (HCC) 1 Occurrences starting 02/23/2023 until 03/24/2024 [facility] Work Phone: Comment on above: 1 Occurrences starti ng 02/23/2023 until 03/24/2024 End: 01-07-2023 ECHO LIMITED ECHO LIMITED Cardiology Routine Malignant neoplasm metastatic to both lungs (HCC) Malignant neoplasm of right breast in female, estrogen receptor positive, unspecified site of breast (HCC) Skin, 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) 1 Occurrences starting 01/07/2022 until 01/07/2023 [facility] Work Phone: Comment on above: 1 Occurrences starti ng 01/07/2022 until 01/07/2023 End: 10-21-2022 Echocardiography ECHO Cardiology Routine Malignant neoplasm of lower-inner quadrant of right breast of female, estrogen receptor positive (HCC) Bone metastases (HCC) Skin, 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) 1 Occurrences starting 10/21/2021 until 10/21/2022 [facility] Work Phone: Comment on above: 1 Occurrences starti ng 10/21/2021 until 10/21/2022 End: 04-14-2023 Echocardiography ECHO Cardiology Routine Malignant neoplasm of lower-inner quadrant of right breast of female, estrogen receptor positive (HCC) Bone metastases (HCC) Encounter for monitoring cardiotoxic drug therapy 1 Occurrences starting 04/14/2022 until 04/14/2023 [facility] Work Phone: Comment on above: 1 Occurrences starti ng 04/14/2022 until 04/14/2023 End: 06-15-2023 Echocardiography ECHO Cardiology Routine Malignant neoplasm of lower-inner quadrant of right breast of female, estrogen receptor positive (HCC) Bone metastases (HCC) Skin, 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) Malignant neoplasm metastatic to both lungs (HCC) Encounter for monitoring cardiotoxic drug therapy 1 Occurrences starting 06/15/2022 until 06/15/2023 [facility] Work Phone: Comment on above: 1 Occurrences starti ng 06/15/2022 until 06/15/2023 End: 10-21-2023 Echocardiography ECHO Cardiology Routine Chemotherapy-induced cardiomyopathy (HCC) 1 Occurrences starting 10/20/2022 until 10/21/2023 [facility] Work Phone: Comment on above: 1 Occurrences starti ng 10/20/2022 until 10/21/2023 End: 12-23-2023 Echocardiography ECHO Cardiology Routine Malignant neoplasm of lower-inner quadrant of right breast of female, estrogen receptor positive (HCC) 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) Malignant neoplasm metastatic to both lungs (HCC) Encounter for monitoring cardiotoxic drug therapy 1 Occurrences starting 12/22/2022 until 12/23/2023 [facility] Work Phone: Comment on above: 1 Occurrences starti ng 12/22/2022 until 12/23/2023 End: 04-26-2024 Echocardiography ECHO Cardiology Routine Malignant neoplasm metastatic to both lungs (HCC) Encounter for monitoring cardiotoxic drug therapy 1 Occurrences starting 04/26/2023 until 04/26/2024 [facility] Work Phone: Comment on above: 1 Occurrences starti ng 04/26/2023 until 04/26/2024 End: 09-20-2024 Echocardiography ECHO Cardiology Routine Encounter for monitoring cardiotoxic drug therapy 1 Occurrences starting 09/21/2023 until 09/20/2024 [facility] Work Phone: Comment on above: 1 Occurrences starti ng 09/21/2023 until 09/20/2024 End: 11-22-2024 Echocardiography ECHO Cardiology Routine Chemotherapy-induced cardiomyopathy (HCC) Encounter for monitoring cardiotoxic drug therapy 1 Occurrences starting 11/23/2023 until 11/22/2024 [facility] Work Phone: Comment on above: 1 Occurrences starti ng 11/23/2023 until 11/22/2024 End: 01-04-2025 Echocardiography ECHO Cardiology Routine Encounter for monitoring cardiotoxic drug therapy 1 Occurrences starting 01/06/2024 until 01/04/2025 [facility] Work Phone: Comment on above: 1 Occurrences starti ng 01/06/2024 until 01/04/2025 End: 01-05-2025 Echocardiography ECHO Cardiology Routine Encounter for monitoring cardiotoxic drug therapy Chemotherapy induced cardiomyopathy (HCC) 1 Occurrences starting 01/06/2024 until 01/05/[address] [facility] Comment on above: 1 Occurrences starti ng 01/06/2024 until 01/05/2025 End: 08-15-2025 Echocardiography ECHO Cardiology Routine Malignant neoplasm of lower-inner quadrant of right breast of female, estrogen receptor positive (HCC) Malignant neoplasm metastatic to bone (HCC) Malignant neoplasm metastatic to both lungs (HCC) Encounter for monitoring cardiotoxic drug therapy 1 Occurrences starting 08/15/2024 until 08/15/[address] [facility] Comment on above: 1 Occurrences starti ng 08/15/2024 until 08/15/2025 End: 12-12-2025 Echocardiography ECHO Cardiology Routine Malignant neoplasm of lower-inner quadrant of right breast of female, estrogen receptor positive (HCC) HER2-positive carcinoma of breast (HCC) Malignant neoplasm metastatic to bone (HCC) Malignant neoplasm metastatic to both lungs (HCC) Chemotherapy-induced cardiomyopathy (HCC) 1 Occurrences starting 12/12/2024 until 12/12/[address] [facility] Comment on above: 1 Occurrences starti ng 12/12/2024 until 12/12/2025 End: 08-05-2023 MAXIM SCREENING W OMI MAXIM SCREENING W OMI Radiology Routine Encounter for screening mammogram for malignant neoplasm of breast 1 Occurrences starting 07/06/2022 until 08/05/2023 [facility] Work Phone: Comment on above: 1 Occurrences starti ng 07/06/2022 until 08/05/2023 Patient Education Rectal Bleeding Tx [facility] Work Phone: Patient referral [facility] Work Phone: End: 09-08-2024 PET+CT [...] (HCC) 1 Occurrences starting 08/10/2023 until 09/08/2024 [facility] Work Phone: Comment on above: [...] both lungs (HCC) 08/22/2023 10:41 AM EDT [facility] Work Phone: End: 12-10-2023 Radex spine lumbosacral 2/3 views XR LUMBAR LIMITED 2V AP/LAT Radiology Routine Chronic left sacroiliac pain 1 Occurrences starting 11/10/2022 until 12/10/2023 [facility] Work Phone: Comment on above: 1 Occurrences starti ng 11/10/2022 until 12/10/2023 Radex spine lumbosac ral 2/3 views XR LUMBAR LIMITED 2V AP/LAT Radiology Routine Chronic left sacroiliac pain 11/10/2022 11:10 AM EDT [facility] Work Phone: End: 12-10-2023 Radiologic examination sacroiliac jnts <3 views XR SACROILIAC JOINTS 2V AP PELVIS/FERGUESON Radiology Routine Chronic left sacroiliac pain 1 Occurrences starting 11/10/2022 until 12/10/2023 [facility] Work Phone: Comment on above: 1 Occurrences starti ng 11/10/2022 until 12/10/2023 Radiologic examinati on sacroiliac jnts <3 views XR SACROILIAC JOINTS 2V AP PELVIS/FERGUESON Radiology Routine Chronic left sacroiliac pain 11/10/2022 11:10 AM EDT [facility] Work Phone: End: 2024 US Abdomen RUQ US ABD RIGHT UPPER QUADRANT Radiology Routine RUQ pain 1 Occurrences starting 08/30/2023 until 2024 [facility] Work Phone: Comment on above: 1 Occurrences starti ng 08/30/2023 until 2024 US Abdomen RUQ US ABD RIGHT UPP ER QUADRANT Radiology Routine RUQ pain 09/15/2023 12:01 PM EDT [facility] Work Phone: End: 09-23-2023 US BREAST LTD LT US BREAST LTD LT Radiology Routine Abnormal mammogram 1 Occurrences starting 08/24/2022 until 09/23/2023 [facility] Work Phone: Comment on above: 1 Occurrences starti ng 08/24/2022 until 09/23/2023 End: 10-02-2022 Us soft tissue head & neck real time imge docm US THYROID/PARATHYROID Radiology Routine Thyroid nodule 1 Occurrences starting 09/02/2021 until 10/02/2022 [facility] Work Phone: Comment on above: 1 Occurrences starti ng 09/02/2021 until 10/02/2022 End: 09-14-2025 US Thyroid gland US THYROID/PARATHYROID Radiology Routine History of thyroid nodule 1 Occurrences starting 08/15/2024 until 09/14/2025 [facility] Work Phone: Comment on above: 1 Occurrences starti ng 08/15/2024 until 09/14/2025 US Thyroid gland US THYROID/PARA THYROID Radiology Routine History of thyroid nodule 08/30/2024 8:04 AM EDT [facility] Work Phone: End: 03-15-2026 US Thyroid gland US THYROID/PARATHYROID Radiology Routine Nontoxic single thyroid nodule 1 Occurrences starting 02/13/2025 until 03/15/2026 [facility] Work Phone: Comment on above: 1 Occurrences starti ng 02/13/2025 until 03/15/2026 US Thyroid gland US THYROID/PARA THYROID Radiology Routine Nontoxic single thyroid nodule 02/14/2025 7:42 AM EDT [facility] Work Phone: End: 02-02-2025 XR Chest PA and Lateral XR CHEST 2V FRONTAL/LAT Radiology Routine Malignant neoplasm of lower-inner quadrant of right breast of female, estrogen receptor positive (HCC) Orthopnea 1 Occurrences starting 01/04/2024 until 02/02/2025 [facility] Work Phone: Comment on above: 1 Occurrences starti ng 01/04/2024 until 02/02/2025 XR Chest PA and Lateral XR CHEST 2V FRONTAL/LAT Radiology Routine Malignant neoplasm of lower-inner quadrant of right breast of female, estrogen receptor positive (HCC) Orthopnea 01/04/2024 11:24 AM EDT [facility] Immunizations Immunization Date Immunization Notes Care Provider Fa cility 06-14-2024 influenza, high dose seasonal, preservative-free Treatment Ws Work Phone: [facility] 06-14-2024 influenza virus vaccine, unspecified formulation Nallely Willy [facility] 03-30-2023 Moderna COVID-19 vaccine, 12 years and older (50mcg/0.5mL)(Spikevax ) Isac Billingsley MD Work Phone: [facility] Work Phone: 03-25-2022 Moderna COVID-19 vaccine, bivalent, blue cap/st label *Check age/dose* Isac Billingsley MD Work Phone: [facility] Work Phone: 09-19-2020 COVID-19 vaccine, fu ll dose (MODERNA) Pet [address] [facility] 08-20-2020 COVID-19 vaccine, fu ll dose (MODERNA) Pet [address] [facility] Payers Date Payer Category Payer Self-pay [id number] 2022 Medicare supplementa l policy (as second payer) [facility] [id number] 2022 Unknown AARP AARP [id number] 2022-Present [address] [place] [address] [id number] 2021 Private Health Insurance [id number] 2021 Unknown [id number] 2019 Medicare MEDICARE MEDICAR E A AND B [id number] 2019-Present [phone] [place] [address] Medicare [id number] 2019 Medicare [id number] 2019 Private Health Insurance xxx [id number] 2019 Medicare [id number] 2015 Unknown [facility] TIMOTHY [id number] 1955 Unknown [id number] Unknown [id number] Unknown [id number] Unknown [id number] Unknown [id number] Unknown [id number] Unknown [id number] Unknown [id number] Social History Date Type Detail Facility Start: 02-20-2016 End: 02-03-2023 Tobacco smoking status NHIS Never smoked tobacco [facility] Start: 02-20-2016 End: 02-03-2023 Tobacco use and exposure Smokeless tobacco non-user [facility] Start: 08-12-2021 End: 01-23-2025 Alcohol intake Current non-drinker of alcohol (finding) [facility] Start: 06-11-2019 History SDOH Social Connections Phone [address] [facility] Start: 06-11-2019 History SDOH Social Connections Get Together [address] [facility] Start: 06-11-2019 History SDOH Social Connections Orthodox [address] [facility] Start: 06-11-2019 History SDOH Social Connections Living [address] [facility] Start: 06-11-2019 History SDOH Stress [address] [facility] Start: 1955 Sex Assigned At Female [facility] Start: 08-15-2021 End: 2024 Exposure to SARS-CoV-2 (event) Not sure [facility] Start: 09-15-2021 End: 08-16-2023 Tobacco smoking status ALIS Unknown if ever smoked [facility] Start: 05-01-2019 Non-smoker [facility] Start: 06-11-2019 End: 10-18-2022 History of Social function [facility] Start: 06-11-2019 End: 10-18-2022 Social connection and isolation panel [facility] Do you belong to any clubs or organizations such as shinto groups, unions, fraternal or athletic groups, or school groups? No [facility] Are you now , , , , never or living with a partner? [facility] Start: 05-07-2012 How hard is it for you to pay for the very basics like food, housing, medical care, and heating Not hard at all [facility] Do you feel stress - tense, restless, nervous, or anxious, or unable to sleep at night because your mind is troubled all the time - these days [OSQ] Rather much [facility] (I/We) worried wheth er (my/our) food would run out before (I/we) got money to buy more. Never true [facility] Start: 02-17-2021 Gender identity Identifies as female gender (finding) [facility] Start: 02-17-2021 Sexual orientation Heterosexual (finding) [facility] Start: 06-16-2023 End: 2024 Alcohol intake Ex-drinker (finding) [facility] Work Phone: Start: 1955 Sex Assigned At Not on file [facility] Work Phone: Start: 09-19-2024 Sex Female (finding) [facility] How often to you hav e a drink containing alcohol? Never [facility] Medical Equipment Procedure Code Equipment Code [...] ri 8fr Plastic Polyurethane Implantable Infusion - [id number] Start: 03-25-2016 SANTO 3GRM HEMO STAT ABS [...] 02/14/20 25 8:32 AM Kolby Odonnell MA [facility] 2024 Patient Health Questionnaire 2 item (PHQ-2) [Reported] [facility] Work Phone: 02-17-2023 Functional status Ambulates [facility] Work Phone: [facility] Work Phone: [facility] Mental Status Date Assessment Result Facility 02-17-2023 Cognitive function Voice/Name [facility] Work Phone: Clinical Notes 08-25-2021 to [...] PATIENT PRESENTS WITH AN IMPLANTABLE OR ATTACHED SERVICE GREETER: No RADIOLOGY DEPARTMENT: Ultrasound PERIPHERAL IV DATA: Not applicable SIGNED BY: Bridget Hall RDMS February 14, 2025 7:35 AM documented in this encounter [facility] 02-13-2025 History of Presen t illness Narrative Oncologic problem(s): 1) Metastatic recurrence of ER positive, WV negative, HER2 positive breast cancer. 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 HPI: The patient is a 69 year old female who discovered a lump on the lower inner portion of her right breast in the fall of 2015. She was seen at [facility] and underwent a right sided core [...] positive, >90% Ki-67 (30-9) positive, 12% CK8 (93enjnF66) positive CK5-6 (D5 & 1684) negative Calponin-1 (CN184E) negative P40 (BC28) negative E-Cad (ECH-6) positive MORPHOMETRIC ANALYSIS ER (clone 6F11) 15%, weak intensity WV (clone 16/1E2) 0% Her-2Neu (clone CB11) 3+ Block B Calponin-1 (YN049T) negative P40 (BC28) negative CK8 (13kmviQ98) positive INTERPRETATION: A. Right breast 1 o clock, biopsy: Invasive ductal carcinoma, grade 3/3. Positive for estrogen receptors (favorable prognostic indicator). Negative for progesterone receptors (unfavorable prognostic indicator). Positive for overexpression of GTC4zre. B. Right breast 2 o clock, biopsy: [...] - previously performed on section of tumor ([id number] / [id number]). ER - positive (15%, weak intensity) WV - negative (0%) Her2 krista - positive (3+) Microcalcifications - present in both invasive carcinoma and non-neoplastic tissue. Clinical history - Please make reference to previous specimen ([id number]) right breast at 1 o clock and [...] Continued resolution of subcutaneous metastasis near xyphoid. NGS/biomarkers/commercial driver's license driver mutation analyses: ASSESSMENT/PLAN: (C50.311, Z17.0) Malignant [...] Rip Rivers DO documented in this encounter [facility] 02-12-2025 History of Presen t illness Narrative Radiation Therapy - Patient Education Note PATIENT NAME: Renate Christiansen PATIENT February 12, 2025 [facility] FACILITY/LOCATION: [place] READINESS TO LEARN Cognitive Ability: Alert and [...] need for social work, van service, and cruise coordinator. Patient has an Onbody or Implanted device: Yes, person notified was: Port, Radiation therapist notified Signed by: Crystal Bynum RN documented in this encounter [facility] 02-12-2025 History of Presen t illness Narrative RENATE CHRISTIANSEN [id number] 02/12/[address] [facility] - Department of Radiation Oncology Treatment Planning Note For reasons stated in the consult note, Renate Christiansen is a candidate for radiation therapy. Based on review and interpretation of the relevant diagnostic studies together with the exam findings, Renate Christiansen was simulated on 02/12/2025 at which time [...] and DVH. Electronically Signed Meenu Garay M.D. 511:22 AM documented in this encounter [facility] 02-12-2025 History of Presen t illness Narrative RENATE CHRISTIANSEN [id number] 02/12/2025 [facility] Department of Radiation Oncology [facility] RADIATION ONCOLOGY SIMULATION NOTE DATE OF SIMULATION: [...] M.D./hudson 1:20 AM documented in this encounter [facility] 02-07-2025 Telephone encounter Note Prescription Refill Information [...] Elliott LPN February 07, 2025 7:[address] [facility] 02-07-2025 Miscellaneous Notes Prescription Refill Information The [...] 2025 7:55 AM documented in this encounter [facility] 02-06-2025 History of Presen t illness Narrative [...] Demerol [Meperidine* Unknown Erythromycin Unknown Latex Rash [place] [Hydrocodone-* Hives Nubain [Nalbuphine * Unknown Paxlovid [Nirmatrel* Intolerance Kidneys shut down Percocet [Oxycodone* Rash, Itching Irrigon Other: See Comments Migraine headache Sulfa (Sulfonamide [...] that other personnel such as radiation therapists, sql server dba, and physicists will participate in planning and delivery of radiation treatment. Permanent tattoo amado will be placed to aid with positioning for daily treatment and the patient consented. Patient will have a simulation procedure within a week. Signed by: Meenu Garay MD cc: RUPALI MIRZA [address] [place] [address] Rip Rivers Radiation Therapy - Nursing Note (Follow-up) PATIENT NAME: Renate Christiansen PATIENT February 06, 2025 [facility] FACILITY/LOCATION: [place] Reason for visit: Follow up. PET scan completed on 01/29/25 Subjective Data Follow up from PET scan completed on 01/29/25. I went to ENT because my tonsils glowed on my scan but the doctor said he wanted to see me in 3 months because it would do more harm to take them out. Additional Data Do you want to see a Stone [employer]ber? No Nursing Assessment Fatigue: none Appetite: good [...] Crystal Bynum RN documented in this encounter [facility] 02-06-2025 Telephone encounter Note New dose pended. [...] 06, 2025 7:57 AM Chrissie Elliott LPN [facility] 02-06-2025 Miscellaneous Notes New dose pended. Prescription [...] advise. Tiffany Cast documented in this encounter [facility] 02-05-2025 Telephone encounter Note patient is requesting [...] daily. Please review and advise. Tiffany Cast [facility] Work Phone: 01-30-2025 Telephone encounter Note Patient is scheduled to see Dr. Garay 02/06/2025. Patient verbalized understanding of all instructions. Referral to Dr. Vargas faxed earlier. Jazlyn Harding LPN [facility] 01-30-2025 Miscellaneous Notes Patient is scheduled to see Dr. Garya 02/06/2025. Patient verbalized understanding of all instructions. [...] evaluation. Dr. Vargas or Dr. Arroyo at [facility]. We can fax a copy of her [...] Rip Rivers DO documented in this encounter [facility] 01-30-2025 Telephone encounter Note Left message for patient to return call. Referral faxed to Dr. Vargas. Jazlyn Harding LPN [facility] 01-30-2025 Telephone encounter Note Can let her [...] evaluation. Dr. Vargas or Dr. Arroyo at [facility]. We can fax a copy of [...] a schedule of radiation. Rip Rivers DO [facility] 01-29-2025 History of Presen t illness Narrative [...] PATIENT PRESENTS WITH AN IMPLANTABLE OR ATTACHED SERVICE GREETER: No CREATININE: Creatinine Date Value Ref Range [...] 1230 PATIENT DISCHARGED TO: Ambulatory patient, left [place] department area. Is this a therapy: No A Diagnostic radioactive procedure has taken place, with no further precautions necessary other than routine body substance precautions. More information regarding radiation safety can be found using this link: [email or web address]% 20Nuclear%20Medicine%20Procedur [email or web address] SIGNATURE: EJ Pagan) PATIENT NAME: Renate Christiansen DATE: January 29, 2025 TIME: 12:36 PM PAGER/CONTACT #: documented in this encounter [facility] 01-29-2025 Note HNO ID: [id number] Author: BENNY LOPEZ RT (R) Service: Nuclear Medicine Author Type: Technologist Type: [...] PATIENT PRESENTS WITH AN IMPLANTABLE OR ATTACHED SERVICE GREETER: No CREATININE: Creatinine Date Value Ref Range [...] 1230 PATIENT DISCHARGED TO: Ambulatory patient, left [place] department area. Is this a therapy: No A Diagnostic radioactive procedure has taken place, with no further precautions necessary other than routine body substance precautions. More information regarding radiation safety can be found using this link: [email or web address] %[email or web address]-% 20Diagnostic%20Nuclear%20Medici ne%20Procedures.pdf SIGNATURE: RT Latasha(R) PATIENT NAME: Renate Christiansen DATE: January 29, 2025 TIME: 12:36 PM PAGER/CONTACT #: [facility] 01-23-2025 History of Presen t illness Narrative Chief Complaint Patient presents with: Established Patient HPI: Renate Christiansen is a 69 year old female who presents here today for evaluation for treatment tomorrow. Per Dr. Rivers's previous note: H/o discovered a lump on the lower inner portion of her right breast in the fall of 2015. She was seen at [facility] and underwent a right sided core [...] positive, >90% Ki-67 (30-9) positive, 12% CK8 (83pjglG00) positive CK5-6 (D5 & 1684) negative Calponin-1 (GH066P) negative P40 (BC28) negative E-Cad (ECH-6) positive MORPHOMETRIC ANALYSIS ER (clone 6F11) 15%, weak intensity WV (clone 16/1E2) 0% Her-2Neu (clone CB11) 3+ Block B Calponin-1 (YV948E) negative P40 (BC28) negative CK8 (16yocpM65) positive INTERPRETATION: A. Right breast 1 o clock, biopsy: Invasive ductal carcinoma, grade 3/3. Positive for estrogen receptors (favorable prognostic indicator). Negative for progesterone receptors (unfavorable prognostic indicator). Positive for overexpression of TDS9lwg. B. Right breast 2 o clock, biopsy: [...] ductal carcinoma (no special type) Histologic Grade ([place] grade): Glandular/tubular differentiation - score 3 Nuclear [...] - previously performed on section of tumor ([id number] / [id number]). ER - positive (15%, weak intensity) WV - negative (0%) Her2 krista - positive (3+) Microcalcifications - present in both invasive carcinoma and non-neoplastic tissue. Clinical history - Please make reference to previous specimen ([id number]) right breast at 1 o clock and [...] 4.00 k/uL 1.03 0.95 (L) 0.87 (L) [place]% % 12.4 11.6 11.8 Abs [place] <0.87 k/uL 0.62 0.51 0.53 Eosin% % [...] as necessary for today's visit. Caity Cote APRN.CLIENT REPORTING ASSOCIATE documented in this encounter [facility] 01-18-2025 History of Presen t illness Narrative [...] been reviewed prior to dispensing the medication. Assistive Technology Trainer Assessment Patient confirmed: Yes Med/dose confirmed: Yes Supplies needed: No supplies needed Missed doses: No Estimated days supply on hand: 0 Next cycle/dose due: 01/24/25 Copay amount: 0 Copay form of payment: (N/A) Payment confirmed: Yes Delivery method: FedEx Signature required: Waived on patient request Delivery address: [address] [place] [address] *TAKE TO BACK DOOR* [place] [address] Delivery date: 01/22/25 Questions or concerns for [...] facility-administered medications on file prior to visit. [facility] SPECIALTY CLINICAL ASSESSMENT - HEMATOLOGY ONCOLOGY [...] hx of coronary artery disease), GI toxicity, xgwl-ufa-emhj syndrome (onset ~79 days), hepatotoxicity (onset ~64 [...] toxicity Ruth Mejia documented in this encounter [facility] 01-02-2025 History of Presen t illness Narrative Oncologic problem(s): 1) Metastatic recurrence of ER positive, WV negative, HER2 positive breast cancer. 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 HPI: The patient is a 68 year old female who discovered a lump on the lower inner portion of her right breast in the fall of 2015. She was seen at [facility] and underwent a right sided core biopsy on 02/16/2016 by interventional radiology. The tissue specimen demonstrated invasive ductal carcinoma, [place] grade 2. ER positive (90%, very weak) [...] positive, >90% Ki-67 (30-9) positive, 12% CK8 (78ubmtR29) positive CK5-6 (D5 & 1684) negative Calponin-1 (WR752H) negative P40 (BC28) negative E-Cad (ECH-6) positive MORPHOMETRIC ANALYSIS ER (clone 6F11) 15%, weak intensity WV (clone 16/1E2) 0% Her-2Neu (clone CB11) 3+ Block B Calponin-1 (OC863G) negative P40 (BC28) negative CK8 (66cspvZ80) positive INTERPRETATION: A. Right breast 1 o clock, biopsy: Invasive ductal carcinoma, grade 3/3. Positive for estrogen receptors (favorable prognostic indicator). Negative for progesterone receptors (unfavorable prognostic indicator). Positive for overexpression of TGA6sma. B. Right breast 2 o clock, biopsy: [...] - previously performed on section of tumor ([id number] / [id number]). ER - positive (15%, weak intensity) WV - negative (0%) Her2 krista - positive (3+) Microcalcifications - present in both invasive carcinoma and non-neoplastic tissue. Clinical history - Please make reference to previous specimen ([id number]) right breast at 1 o clock and [...] Continued resolution of subcutaneous metastasis near xyphoid. NGS/biomarkers/commercial driver's license driver mutation analyses: ASSESSMENT/PLAN: (C50.311, Z17.0) Malignant [...] Rip Rivers DO documented in this encounter [facility] 12-28-2024 History of Presen t illness Narrative [...] been reviewed prior to dispensing the medication. Assistive Technology Trainer Assessment Patient confirmed: Yes Med/dose confirmed: Yes Supplies needed: No supplies needed Missed doses: No Estimated days supply on hand: 0 Next cycle/dose due: 01/03/25 Copay amount: 0 Copay form of payment: (N/A) Payment confirmed: Yes Delivery method: FedEx Signature required: Waived on patient request Delivery address: [facility] [address] *TAKE TO BACK DOOR* [facility] [address] Delivery date: 01/01/25 Questions or concerns for [...] facility-administered medications on file prior to visit. [facility] SPECIALTY CLINICAL ASSESSMENT - HEMATOLOGY ONCOLOGY [...] hx of coronary artery disease), GI toxicity, viau-pqn-ltfq syndrome (onset ~79 days), hepatotoxicity (onset ~64 [...] toxicity Ruth Mejia documented in this encounter [facility] 12-27-2024 History of Presen t illness Narrative [...] PATIENT PRESENTS WITH AN IMPLANTABLE OR ATTACHED SERVICE GREETER: No RADIOLOGY DEPARTMENT: CT; Exam(s) Completed: Chest Abdomen Pelvis PERIPHERAL IV DATA: power port accessed by hemoc SIGNED BY: RT Ashley(R) December 27, 2024 2:01 PM documented in this encounter [facility] 12-27-2024 History of Presen t illness Narrative Patient is here for IVAD port flush/blood draw per [facility] protocol. IVAD is located in left upper [...] tolerated procedure well. documented in this encounter [facility] 12-12-2024 Telephone encounter Note Faxed order to [facility] Ruchi Morris [facility] 12-12-2024 Miscellaneous Notes Faxed order to [facility] Ruchi Morris AVS 7/9 - ECHO due this month at [facility]. - CT's after this cycle. DONE - Start xeloda/tukysa tomorrow. - Proceed as scheduled tomorrow for herceptin pending labs. - Follow up as scheduled otherwise. - Pt. aware to call office with any questions/concerns. documented in this encounter [facility] 12-12-2024 Telephone encounter Note AVS 7/9 - ECHO due this month at [facility]. - CT's after this cycle. DONE - Start xeloda/tukysa tomorrow. - Proceed as scheduled tomorrow for herceptin pending labs. - Follow up as scheduled otherwise. - Pt. aware to call office with any questions/concerns. [facility] Work Phone: 12-12-2024 History of Presen t illness Narrative Chief Complaint Patient presents with: Established Patient HPI: Renate Christiansen is a 69 year old female who presents here today for evaluation for treatment tomorrow. Per Dr. Rivers's previous note: H/o discovered a lump on the lower inner portion of her right breast in the fall of 2015. She was seen at [facility] and underwent a right sided core [...] positive, >90% Ki-67 (30-9) positive, 12% CK8 (40ghjbC32) positive CK5-6 (D5 & 1684) negative Calponin-1 (UU026Y) negative P40 (BC28) negative E-Cad (ECH-6) positive MORPHOMETRIC ANALYSIS ER (clone 6F11) 15%, weak intensity WV (clone 16/1E2) 0% Her-2Neu (clone CB11) 3+ Block B Calponin-1 (LP461M) negative P40 (BC28) negative CK8 (12typgK10) positive INTERPRETATION: A. Right breast 1 o clock, biopsy: Invasive ductal carcinoma, grade 3/3. Positive for estrogen receptors (favorable prognostic indicator). Negative for progesterone receptors (unfavorable prognostic indicator). Positive for overexpression of AXE5lrh. B. Right breast 2 o clock, biopsy: [...] - previously performed on section of tumor ([id number] / [id number]). ER - positive (15%, weak intensity) WV - negative (0%) Her2 krista - positive (3+) Microcalcifications - present in both invasive carcinoma and non-neoplastic tissue. Clinical history - Please make reference to previous specimen ([id number]) right breast at 1 o clock and [...] - 4.00 k/uL 0.86 (L) 1.08 1.03 [place]% % 10.7 11.8 12.4 Abs [place] <0.87 k/uL 0.40 0.55 0.62 Eosin% % [...] pending. - ECHO done in September at [facility]. Next due this month. - Continue zometa every 3 months. - Start xeloda/tukysa tomorrow. - ECHO due this month at [facility]. - CT's after this cycle. - Proceed [...] as necessary for today's visit. Caity Cote APRN.CLIENT REPORTING ASSOCIATE documented in this encounter [facility] 12-12-2024 History of Presen t illness Narrative Patient is here for IVAD port flush/blood draw per [facility] protocol. IVAD is located in left upper [...] tolerated procedure well. documented in this encounter [facility] 11-21-2024 History of Presen t illness Narrative Chief Complaint Patient presents with: Established Patient HPI: Renate Christiansen is a 69 year old female who presents here today for evaluation for treatment tomorrow. Per Dr. Rivers's previous note: H/o discovered a lump on the lower inner portion of her right breast in the fall of 2015. She was seen at [facility] and underwent a right sided core biopsy on 02/16/2016 by interventional radiology. The tissue specimen demonstrated invasive ductal carcinoma, [place] grade 2. ER positive (90%, very weak) [...] positive, >90% Ki-67 (30-9) positive, 12% CK8 (43piloS89) positive CK5-6 (D5 & 1684) negative Calponin-1 (BB791Q) negative P40 (BC28) negative E-Cad (ECH-6) positive MORPHOMETRIC ANALYSIS ER (clone 6F11) 15%, weak intensity WV (clone 16/1E2) 0% Her-2Neu (clone CB11) 3+ Block B Calponin-1 (IZ192D) negative P40 (BC28) negative CK8 (99rjpjN24) positive INTERPRETATION: A. Right breast 1 o clock, biopsy: Invasive ductal carcinoma, grade 3/3. Positive for estrogen receptors (favorable prognostic indicator). Negative for progesterone receptors (unfavorable prognostic indicator). Positive for overexpression of JSJ6ulu. B. Right breast 2 o clock, biopsy: [...] ductal carcinoma (no special type) Histologic Grade ([place] grade): Glandular/tubular differentiation - score 3 Nuclear [...] - previously performed on section of tumor ([id number] / [id number]). ER - positive (15%, weak intensity) WV - negative (0%) Her2 krista - positive (3+) Microcalcifications - present in both invasive carcinoma and non-neoplastic tissue. Clinical history - Please make reference to previous specimen ([id number]) right breast at 1 o clock and [...] - 4.00 k/uL 1.02 0.86 (L) 1.08 [place]% % 9.8 10.7 11.8 Abs [place] <0.87 k/uL 0.50 0.40 0.55 Eosin% % [...] pt. - ECHO done in September at [facility]. Next due in December. - Continue zometa [...] Caity Cote APRN.CNP documented in this encounter [facility] 11-15-2024 History of Presen t illness [...] been reviewed prior to dispensing the medication. Assistive Technology Trainer Assessment Patient confirmed: Yes Med/dose confirmed: Yes Supplies needed: No supplies needed Missed doses: No Estimated days supply on hand: 0 Next cycle/dose due: 11/22/24 Payment confirmed: Yes Delivery method: FedEx Signature required: Required (, Medicaid, patient preference) Delivery address: [address] [place], [place] [id number] Delivery date: 11/20/24 Questions or concerns for [...] facility-administered medications on file prior to visit. [facility] SPECIALTY CLINICAL ASSESSMENT - HEMATOLOGY ONCOLOGY [...] hx of coronary artery disease), GI toxicity, dxhm-ekw-rgcm syndrome (onset ~79 days), hepatotoxicity (onset ~64 [...] toxicity Mae Wise documented in this encounter [facility] 11-14-2024 Telephone encounter Note Rx was sent on 11/09/2024 Refused this refill Chrissie Elliott LPN [facility] 11-14-2024 Miscellaneous Notes Rx was sent on 11/09/2024 Refused this refill Chrissie Elliott LPN documented in this encounter [facility] 11-09-2024 Telephone encounter Note Prescription Refill [...] Elliott LPN November 09, 2024 7:[address] [facility] 11-09-2024 Miscellaneous Notes Prescription Refill Information [...] 2024 7:26 AM documented in this encounter [facility] 10-31-2024 History of Presen t illness Narrative Chief Complaint Patient presents with: Recheck HPI: Renate Christiansen is a 69 year old female who presents here today for evaluation for treatment tomorrow. Per Dr. Rivers's previous note: H/o discovered a lump on the lower inner portion of her right breast in the fall of 2015. She was seen at [facility] and underwent a right sided core [...] positive, >90% Ki-67 (30-9) positive, 12% CK8 (77fwgfT37) positive CK5-6 (D5 & 1684) negative Calponin-1 (UY792Y) negative P40 (BC28) negative E-Cad (ECH-6) positive MORPHOMETRIC ANALYSIS ER (clone 6F11) 15%, weak intensity WV (clone 16/1E2) 0% Her-2Neu (clone CB11) 3+ Block B Calponin-1 (LX303L) negative P40 (BC28) negative CK8 (43btrnP48) positive INTERPRETATION: A. Right breast 1 o clock, biopsy: Invasive ductal carcinoma, grade 3/3. Positive for estrogen receptors (favorable prognostic indicator). Negative for progesterone receptors (unfavorable prognostic indicator). Positive for overexpression of JCC8iqq. B. Right breast 2 o clock, biopsy: [...] - previously performed on section of tumor ([id number] / [id number]). ER - positive (15%, weak intensity) WV - negative (0%) Her2 krista - positive (3+) Microcalcifications - present in both invasive carcinoma and non-neoplastic tissue. Clinical history - Please make reference to previous specimen ([id number]) right breast at 1 o clock and [...] 4.00 k/uL 0.82 (L) 1.02 0.86 (L) [place]% % 11.3 9.8 10.7 Abs [place] <0.87 k/uL 0.53 0.50 0.40 Eosin% % [...] pending. - ECHO done in September at [facility]. Next due in December. - Continue zometa [...] Caity Cote APRN.ALESSANDRO documented in this encounter [facility] 10-10-2024 History of Presen t illness Narrative Chief Complaint Patient presents with: Established Patient HPI: Renate Christiansen is a 69 year old female who presents here today for evaluation for treatment tomorrow. Per Dr. Rivers's previous note: H/o discovered a lump on the lower inner portion of her right breast in the fall of 2015. She was seen at [facility] and underwent a right sided core [...] positive, >90% Ki-67 (30-9) positive, 12% CK8 (18iapcF31) positive CK5-6 (D5 & 1684) negative Calponin-1 (HM422Q) negative P40 (BC28) negative E-Cad (ECH-6) positive MORPHOMETRIC ANALYSIS ER (clone 6F11) 15%, weak intensity WV (clone 16/1E2) 0% Her-2Neu (clone CB11) 3+ Block B Calponin-1 (JS130S) negative P40 (BC28) negative CK8 (89sfizH98) positive INTERPRETATION: A. Right breast 1 o clock, biopsy: Invasive ductal carcinoma, grade 3/3. Positive for estrogen receptors (favorable prognostic indicator). Negative for progesterone receptors (unfavorable prognostic indicator). Positive for overexpression of GWF9mxb. B. Right breast 2 o clock, biopsy: [...] - previously performed on section of tumor ([id number] / [id number]). ER - positive (15%, weak intensity) WV - negative (0%) Her2 krista - positive (3+) Microcalcifications - present in both invasive carcinoma and non-neoplastic tissue. Clinical history - Please make reference to previous specimen ([id number]) right breast at 1 o clock and [...] 4.00 k/uL 0.78 (L) 0.82 (L) 1.02 [place]% % 12.4 11.3 9.8 Abs [place] <0.87 k/uL 0.43 0.53 0.50 Eosin% % [...] pt. - ECHO done in September at [facility]. Next due in December. - Continue zometa [...] as necessary for today's visit. Caity Cote APRN.CLIENT REPORTING ASSOCIATE documented in this encounter [facility] 10-03-2024 History of Presen t illness Narrative Chief Complaint Patient presents with: Established Patient HPI: Renate Christiansen is a 68 year old female who presents here today for evaluation for treatment tomorrow. Per Dr. Rivers's previous note: H/o discovered a lump on the lower inner portion of her right breast in the fall of 2015. She was seen at [facility] and underwent a right sided core biopsy on 02/16/2016 by interventional radiology. The tissue specimen demonstrated invasive ductal carcinoma, [place] grade 2. ER positive (90%, very weak) [...] positive, >90% Ki-67 (30-9) positive, 12% CK8 (67yolgS57) positive CK5-6 (D5 & 1684) negative Calponin-1 (GX488C) negative P40 (BC28) negative E-Cad (ECH-6) positive MORPHOMETRIC ANALYSIS ER (clone 6F11) 15%, weak intensity WV (clone 16/1E2) 0% Her-2Neu (clone CB11) 3+ Block B Calponin-1 (DM439F) negative P40 (BC28) negative CK8 (49qjfqM41) positive INTERPRETATION: A. Right breast 1 o clock, biopsy: Invasive ductal carcinoma, grade 3/3. Positive for estrogen receptors (favorable prognostic indicator). Negative for progesterone receptors (unfavorable prognostic indicator). Positive for overexpression of WWC9six. B. Right breast 2 o clock, biopsy: [...] - previously performed on section of tumor ([id number] / [id number]). ER - positive (15%, weak intensity) WV - negative (0%) Her2 krista - positive (3+) Microcalcifications - present in both invasive carcinoma and non-neoplastic tissue. Clinical history - Please make reference to previous specimen ([id number]) right breast at 1 o clock and [...] improving. No CP, palpitations. No worsening SOB. RBITO is improving. Diarrhea and fecal incontinence while [...] call office with any questions/concerns. Quita Hoff, EREN.CLIENT REPORTING ASSOCIATE I spent a total of 30 minutes on the date of the service which included preparing to see the patient, vebs-je-ryzd patient care, completing clinical documentation, obtaining and/or [...] of this patient. documented in this encounter 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 Per Dr. Rivers, delay cycle by 1 week; she will be short 1 day of pills for her next cycle. PSS- please contact patient today or tomorrow to get appointments rescheduled; labs/OV/treatment. OV can be with an PRINCIPAL PLANNER if needed. Thank you. Carla Almonte RN [facility] 09-26-2024 Miscellaneous Notes Patient was prescribed doxycycline. 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 Per Dr. Rivers, delay cycle by 1 week; she will be short 1 day of pills for her next cycle. PSS- please contact patient today or tomorrow to get appointments rescheduled; labs/OV/treatment. OV can be with an PRINCIPAL PLANNER if needed. Thank you. Carla Almonte RN Patient called stating provider informed her she may have pneumonia and that an antibiotic has been ordered. Patient wants to be sure it is okay with Dr. Rivers before she picks it up. Patient went to the [facility]. Temperature was 101.4 F. CXR still pending. Influenza was negative. Patient stated she was swabbed for COVID as well but the results won't be back until tomorrow. Carla Doup, RN [facility] Care Coordination FOLLOW-UP NOTE Care Coordination Plan: patient informed of Dr. Rivers's response, stated understanding. Carla Almonte RN September 26, 2024 I think it best that she get checked at urgent care. Rip Rivers DO Patient states Covid test came back negative. Care Coordination Triage Note [facility] Situation: Patient reports Fever, cough, congestion, runny [...] 100.8. She is going to have spouse bean picker machine operator covid test. documented in this encounter [facility] 09-26-2024 Telephone encounter Note Patient called stating provider informed her she may have pneumonia and that an antibiotic has been ordered. Patient wants to be sure it is okay with Dr. Rivesr before she picks it up. [facility] Work Phone: 09-26-2024 Telephone encounter Note Patient went to the [facility]. Temperature was 101.4 F. CXR still pending. Influenza was negative. Patient stated she was swabbed for COVID as well but the results won't be back until tomorrow. Carla Almonte RN [facility] 09-26-2024 Telephone encounter Note [facility] Care Coordination FOLLOW-UP NOTE Care Coordination Plan: patient informed of Dr. Rivers's response, stated understanding. Carla Almonte RN September 26, [address] [facility] 09-26-2024 Telephone encounter Note I think it best that she get checked at urgent care. Rip Rivers DO [facility] 09-26-2024 Telephone encounter Note Patient states Covid test came back negative. [facility] 09-26-2024 Telephone encounter Note Care Coordination Triage Note Cancer [facility] Situation: Patient reports Fever, cough, congestion, runny [...] Almonte RN September 26, 2024 9:[address] [facility] 09-26-2024 Telephone encounter Note Patient called to cancel lab and office visit today, treatment for tomorrow. States she is running fever of 100.8. She is going to have spouse bean picker machine operator covid test. [facility] 09-17-2024 History of Presen t illness [...] been reviewed prior to dispensing the medication. Assistive Technology Trainer Assessment Patient confirmed: Yes Med/dose confirmed: Yes Supplies needed: No supplies needed Missed doses: No Estimated days supply on hand: 0 Next cycle/dose due: 09/24/24 Copay amount: 0 Copay form of payment: Credit card on file Payment confirmed: Yes Signature required: No Delivery address: [address] [place] [address] *deliver to back door* [place] [phone] Delivery date: 09/19/24 Questions or concerns for [...] facility-administered medications on file prior to visit. [facility] CLINICAL ASSESSMENT - HEMATOLOGY ONCOLOGY [...] hx of coronary artery disease), GI toxicity, pmou-drt-xbwo syndrome (onset ~79 days), hepatotoxicity (onset ~64 [...] toxicity Kaycee Juares documented in this encounter [facility] 09-05-2024 History of Presen t illness Narrative Chief Complaint Patient presents with: Established Patient HPI: Renate Christiansen is a 68 year old female who presents here today for evaluation for treatment tomorrow. Per Dr. Rivers's previous note: H/o discovered a lump on the lower inner portion of her right breast in the fall of 2015. She was seen at [facility] and underwent a right sided core [...] positive, >90% Ki-67 (30-9) positive, 12% CK8 (47nwzyC72) positive CK5-6 (D5 & 1684) negative Calponin-1 (DK763H) negative P40 (BC28) negative E-Cad (ECH-6) positive MORPHOMETRIC ANALYSIS ER (clone 6F11) 15%, weak intensity WV (clone 16/1E2) 0% Her-2Neu (clone CB11) 3+ Block B Calponin-1 (KR176L) negative P40 (BC28) negative CK8 (62wvfeN23) positive INTERPRETATION: A. Right breast 1 o clock, biopsy: Invasive ductal carcinoma, grade 3/3. Positive for estrogen receptors (favorable prognostic indicator). Negative for progesterone receptors (unfavorable prognostic indicator). Positive for overexpression of PQL0yho. B. Right breast 2 o clock, biopsy: [...] ductal carcinoma (no special type) Histologic Grade ([place] grade): Glandular/tubular differentiation - score 3 Nuclear [...] - previously performed on section of tumor ([id number] / [id number]). ER - positive (15%, weak intensity) WV - negative (0%) Her2 krista - positive (3+) Microcalcifications - present in both invasive carcinoma and non-neoplastic tissue. Clinical history - Please make reference to previous specimen ([id number]) right breast at 1 o clock and [...] 4.00 k/uL 0.83 (L) 1.00 0.78 (L) [place]% % 13.0 12.2 12.4 Abs [place] <0.87 k/uL 0.42 0.46 0.43 Eosin% % [...] Caity Cote APRN.ALESSANDRO documented in this encounter [facility] 08-30-2024 History of Presen t illness [...] PATIENT PRESENTS WITH AN IMPLANTABLE OR ATTACHED SERVICE GREETER: No RADIOLOGY DEPARTMENT: CT; Exam(s) Completed: Chest Abdomen Pelvis PERIPHERAL IV DATA: power ort accessed by Smart Pipe SIGNED BY: RT Ashley(R) August 30, 2024 2:27 PM documented in this encounter [facility] 08-30-2024 History of Presen t illness Narrative Patient is here for IVAD port flush/blood draw per [facility] protocol. IVAD is located in left upper [...] tolerated procedure well. documented in this encounter [facility] 08-30-2024 History of Presen t illness [...] PATIENT PRESENTS WITH AN IMPLANTABLE OR ATTACHED SERVICE GREETER: No RADIOLOGY DEPARTMENT: Ultrasound PERIPHERAL IV DATA: Not applicable SIGNED BY: Bridget Hall RDMS August 30, 2024 8:04 AM documented in this encounter [facility] 08-29-2024 Telephone encounter Note Patient scheduled for 9:00. Send patient to hem/onc after she gets prep. [facility] Work Phone: 08-29-2024 Miscellaneous Notes Patient scheduled for 9:00. Send patient to hem/onc after she gets prep. Pt would like to use port for appt on 08/30/[address] She has an US appt at 7:45 can the port be after that and before the prep time at 8:20am Please call pt to confirm time documented in this encounter [facility] 08-29-2024 Telephone encounter Note Pt would like to use port for appt on 08/30/[address] She has an US appt at 7:45 can the port be after that and before the prep time at 8:20am Please call pt to confirm time [facility] 08-27-2024 History of Presen t illness [...] been reviewed prior to dispensing the medication. Assistive Technology Trainer Assessment Patient confirmed: Yes Med/dose confirmed: Yes Supplies needed: No supplies needed Missed doses: No Estimated days supply on hand: 0 Next cycle/dose due: 09/03/24 Copay amount: 0 Payment confirmed: Yes Delivery method: FedEx Signature required: No Delivery address: [address] *take to back door* [facility] [id number] Delivery date: 08/30/24 Questions or concerns for [...] facility-administered medications on file prior to visit. [facility] CLINICAL ASSESSMENT - HEMATOLOGY ONCOLOGY [...] hx of coronary artery disease), GI toxicity, unic-wht-cnfy syndrome (onset ~79 days), hepatotoxicity (onset ~64 [...] toxicity Kaycee Juares documented in this encounter [facility] 08-16-2024 History of Presen t illness Narrative Office visit with Dr. Rivers on 08/15/24. Assessment reviewed and unchanged. Office visit with Dr. Rivers on 08/15/24. Assessment reviewed and unchanged. documented in this encounter [facility] 08-15-2024 History of Presen t illness Narrative Oncologic problem(s): 1) Metastatic recurrence of ER positive, WV negative, HER2 positive breast cancer. 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 HPI: The patient is a 68 year old female who discovered a lump on the lower inner portion of her right breast in the fall of 2015. She was seen at [facility] and underwent a right sided core [...] positive, >90% Ki-67 (30-9) positive, 12% CK8 (75kspmG66) positive CK5-6 (D5 & 1684) negative Calponin-1 (EG359P) negative P40 (BC28) negative E-Cad (ECH-6) positive MORPHOMETRIC ANALYSIS ER (clone 6F11) 15%, weak intensity WV (clone 16/1E2) 0% Her-2Neu (clone CB11) 3+ Block B Calponin-1 (YI187E) negative P40 (BC28) negative CK8 (55xvpjK97) positive INTERPRETATION: A. Right breast 1 o clock, biopsy: Invasive ductal carcinoma, grade 3/3. Positive for estrogen receptors (favorable prognostic indicator). Negative for progesterone receptors (unfavorable prognostic indicator). Positive for overexpression of GJJ3map. B. Right breast 2 o clock, biopsy: [...] - previously performed on section of tumor ([id number] / [id number]). ER - positive (15%, weak intensity) WV - negative (0%) Her2 krista - positive (3+) Microcalcifications - present in both invasive carcinoma and non-neoplastic tissue. Clinical history - Please make reference to previous specimen ([id number]) right breast at 1 o clock and [...] Rip Rivers DO documented in this encounter [facility] 08-07-2024 Telephone encounter Note Prescription Refill [...] Elliott LPN August 07, 2024 7:[address] [facility] 08-07-2024 Miscellaneous Notes Prescription Refill Information [...] 2024 7:35 AM documented in this encounter [facility] 08-07-2024 Telephone encounter Note Prescription Refill [...] Elliott LPN August 07, 2024 7:[address] [facility] 08-07-2024 Miscellaneous Notes Prescription Refill Information [...] 2024 7:31 AM documented in this encounter [facility] 07-27-2024 Telephone encounter Note SOCIAL WORK FOLLOW UP NOTE: [facility] Faxed to [employer] 07/17/24. Sent to internal scanning. SHANE Leahy [facility] 07-27-2024 Miscellaneous Notes SOCIAL WORK FOLLOW UP NOTE: [facility] Faxed to [facility] 07/17/24. Sent to internal scanning. SHANE Leahy Printed. Rip Rivers DO SOCIAL WORK FOLLOW UP NOTE: [facility] Patient assistance [employer] is asking for a printed script of pt's Tukysa. Can you please include enough refills for the year? Thank you, SHANE Leahy documented in this encounter [facility] 07-25-2024 History of Presen t illness Narrative Renate Christiansen 1955 07/25/2024 HPI: Renate Christiansen is a 68 year old female who presents here today for follow up met. breast cancer. Per Dr. Rivers's previous note: H/o discovered a lump on the lower inner portion of her right breast in the fall of 2015. She was seen at [facility] and underwent a right sided core biopsy on 02/16/2016 by interventional radiology. The tissue specimen demonstrated invasive ductal carcinoma, [place] grade 2. ER positive (90%, very weak) [...] positive, >90% Ki-67 (30-9) positive, 12% CK8 (23zteuO48) positive CK5-6 (D5 & 1684) negative Calponin-1 (RM756I) negative P40 (BC28) negative E-Cad (ECH-6) positive MORPHOMETRIC ANALYSIS ER (clone 6F11) 15%, weak intensity WV (clone 16/1E2) 0% Her-2Neu (clone CB11) 3+ Block B Calponin-1 (ZQ036P) negative P40 (BC28) negative CK8 (36uxizL55) positive INTERPRETATION: A. Right breast 1 o clock, biopsy: Invasive ductal carcinoma, grade 3/3. Positive for estrogen receptors (favorable prognostic indicator). Negative for progesterone receptors (unfavorable prognostic indicator). Positive for overexpression of HRX2jns. B. Right breast 2 o clock, biopsy: [...] ductal carcinoma (no special type) Histologic Grade ([place] grade): Glandular/tubular differentiation - score 3 Nuclear [...] - previously performed on section of tumor ([id number] / [id number]). ER - positive (15%, weak intensity) WV - negative (0%) Her2 krista - positive (3+) Microcalcifications - present in both invasive carcinoma and non-neoplastic tissue. Clinical history - Please make reference to previous specimen ([id number]) right breast at 1 o clock and [...] call office with any questions/concerns. Quita Hoff APRN.CLIENT REPORTING ASSOCIATE I spent a total of 30 minutes on the date of the service which included preparing to see the patient, dlar-mu-mnoq patient care, completing clinical documentation, obtaining and/or [...] of this patient. documented in this encounter [facility] 07-17-2024 Telephone encounter Note Printed. Rip Rivers DO [facility] 07-17-2024 Telephone encounter Note SOCIAL WORK FOLLOW UP NOTE: [facility] Patient assistance company is asking for a printed script of pt's Tukysa. Can you please include enough refills for the year? Thank you, SHANE Leahy [facility] 07-04-2024 Telephone encounter Note SOCIAL WORK FOLLOW UP NOTE: [facility] Date of service: July 04, 2024 [...] well. Once completed, SW will fax to [employer] and send to internal scanning. No other needs identified at this time. PLAN: Continue follow up as needed F/U APPOINTMENT: PRN Assigned SW listed in Care Team tab: Yes SHANE Leahy [facility] 07-04-2024 Miscellaneous Notes SOCIAL WORK FOLLOW UP NOTE: [facility] Date of service: July 04, 2024 [...] well. Once completed, SW will fax to [employer] and send to internal scanning. No other needs identified at this time. PLAN: Continue follow up as needed F/U APPOINTMENT: PRN Assigned SW listed in Care Team tab: Yes DIO Leahy-S documented in this encounter [facility] 07-04-2024 History of Presen t illness Narrative Chief Complaint Patient presents with: Established Patient HPI: Renate Christiansen is a 68 year old female who presents here today for follow up met. breast cancer. Per Dr. Rivers's previous note: H/o discovered a lump on the lower inner portion of her right breast in the fall of 2015. She was seen at [facility] and underwent a right sided core biopsy on 02/16/2016 by interventional radiology. The tissue specimen demonstrated invasive ductal carcinoma, [place] grade 2. ER positive (90%, very weak) [...] positive, >90% Ki-67 (30-9) positive, 12% CK8 (98kkrjK38) positive CK5-6 (D5 & 1684) negative Calponin-1 (OC584K) negative P40 (BC28) negative E-Cad (ECH-6) positive MORPHOMETRIC ANALYSIS ER (clone 6F11) 15%, weak intensity WV (clone 16/1E2) 0% Her-2Neu (clone CB11) 3+ Block B Calponin-1 (KA945B) negative P40 (BC28) negative CK8 (23lhlbL28) positive INTERPRETATION: A. Right breast 1 o clock, biopsy: Invasive ductal carcinoma, grade 3/3. Positive for estrogen receptors (favorable prognostic indicator). Negative for progesterone receptors (unfavorable prognostic indicator). Positive for overexpression of LTE5wuy. B. Right breast 2 o clock, biopsy: [...] - previously performed on section of tumor ([id number] / [id number]). ER - positive (15%, weak intensity) WV - negative (0%) Her2 krista - positive (3+) Microcalcifications - present in both invasive carcinoma and non-neoplastic tissue. Clinical history - Please make reference to previous specimen ([id number]) right breast at 1 o clock and [...] k/uL 0.65 (L) 0.77 (L) 0.93 (L) [place]% % 15.6 14.6 12.3 Abs [place] <0.87 k/uL 0.56 0.51 0.42 Eosin% % [...] Caity Cote APRN.ALESSANDRO documented in this encounter [facility] 07-04-2024 History of Presen t illness Narrative Patient is here for IVAD port flush/blood draw per [facility] protocol. IVAD is located in left upper [...] tolerated procedure well. documented in this encounter [facility] 06-29-2024 Telephone encounter Note The following [...] mg total. Authorizing Provider: RIP RIVERS DO [facility] 06-29-2024 Miscellaneous Notes The following approved [...] it is [employer]. documented in this encounter [facility] 06-29-2024 Telephone encounter Note Rx pended. Jazlyn Harding LPN [facility] 06-29-2024 Telephone encounter Note Patient calling for refill of Tukysa. Patient states it is free from pharm. Patient states it is [employer]. [facility] Work Phone: 06-29-2024 History of Presen [...] Demerol [Meperidine* Unknown Erythromycin Unknown Latex Rash [place] [Hydrocodone-* Hives Nubain [Nalbuphine * Unknown Paxlovid [Nirmatrel* Intolerance Kidneys shut down Percocet [Oxycodone* Rash, Itching [place] Other: See Comments Migraine headache Sulfa (Sulfonamide [...] been reviewed prior to dispensing the medication. Lele Tucker PharmD Clinical Pharmacist, Oncology [facility] P: ; F: Pool: P [facility] Pool #: [id number] Assistive Technology Trainer Assessment Patient confirmed: Yes Med/dose confirmed: Yes Supplies needed: No supplies needed Missed doses: No Estimated days supply on hand: 0 Next cycle/dose due: 07/02/24 Copay amount: 0 Payment confirmed: Yes Delivery method: FedEx Signature required: Waived on patient request Delivery address: [address] [place] [address], *Take to back door,* [place], [address] Delivery date: 06/30/24 Questions or concerns for [...] facility-administered medications on file prior to visit. [facility] CLINICAL ASSESSMENT - HEMATOLOGY ONCOLOGY [...] hx of coronary artery disease), GI toxicity, nqhl-csg-dcko syndrome (onset ~79 days), hepatotoxicity (onset ~64 [...] toxicity Madhavi Corrales documented in this encounter [facility] 06-14-2024 History of Presen t illness Narrative Pt stated no changes to assessment from OV yesterday. Lexie Hartley RN documented in this encounter [facility] 06-13-2024 History of Presen t illness Narrative Oncologic problem(s): 1) Metastatic recurrence of ER positive, WV negative, HER2 positive breast cancer. 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 HPI: The patient is a 68 year old female who discovered a lump on the lower inner portion of her right breast in the fall of 2015. She was seen at [facility] and underwent a right sided core [...] positive, >90% Ki-67 (30-9) positive, 12% CK8 (52ivejG39) positive CK5-6 (D5 & 1684) negative Calponin-1 (PP709M) negative P40 (BC28) negative E-Cad (ECH-6) positive MORPHOMETRIC ANALYSIS ER (clone 6F11) 15%, weak intensity WV (clone 16/1E2) 0% Her-2Neu (clone CB11) 3+ Block B Calponin-1 (MI191X) negative P40 (BC28) negative CK8 (27gyhmA74) positive INTERPRETATION: A. Right breast 1 o clock, biopsy: Invasive ductal carcinoma, grade 3/3. Positive for estrogen receptors (favorable prognostic indicator). Negative for progesterone receptors (unfavorable prognostic indicator). Positive for overexpression of QSX7yub. B. Right breast 2 o clock, biopsy: [...] - previously performed on section of tumor ([id number] / [id number]). ER - positive (15%, weak intensity) WV - negative (0%) Her2 krista - positive (3+) Microcalcifications - present in both invasive carcinoma and non-neoplastic tissue. Clinical history - Please make reference to previous specimen ([id number]) right breast at 1 o clock and [...] Rip Rivers DO documented in this encounter [facility] 06-04-2024 History of Presen t illness [...] been reviewed prior to dispensing the medication. Assistive Technology Trainer Assessment Patient confirmed: Yes Med/dose confirmed: Yes Supplies needed: No supplies needed Missed doses: No Estimated days supply on hand: 0 Next cycle/dose due: 06/11/24 Copay amount: 0 Delivery method: FedEx Signature required: Waived on patient request Delivery address: [address] [phone] Delivery date: 06/08/24 Questions or concerns for [...] facility-administered medications on file prior to visit. [facility] CLINICAL ASSESSMENT - HEMATOLOGY ONCOLOGY [...] hx of coronary artery disease), GI toxicity, xnpy-nbc-ovhf syndrome (onset ~79 days), hepatotoxicity (onset ~64 [...] toxicity Crystal Fuentes documented in this encounter [facility] 05-29-2024 Telephone encounter Note SOCIAL WORK FOLLOW UP NOTE: [facility] Enrollment form drafted and awaiting signature from pt and provider. Will fax once completed. SHANE Leahy [facility] 05-29-2024 Miscellaneous Notes SOCIAL WORK FOLLOW UP NOTE: [facility] Enrollment form drafted and awaiting signature from pt and provider. Will fax once completed. SHANE Leahy Pt is needing re enrollment form for 2024 for Tukysa. New form can be found on [employer]. Please fax to [phone]. Thank you documented in this encounter [facility] 05-28-2024 Telephone encounter Note Pt is needing re enrollment form for 2024 for Tukysa. New form can be found on [employer]. Please fax to [phone]. Thank you [facility] 05-23-2024 History of Presen t illness Narrative Oncologic problem(s): 1) Metastatic recurrence of ER positive, WV negative, HER2 positive breast cancer. 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 HPI: The patient is a 68 year old female who discovered a lump on the lower inner portion of her right breast in the fall of 2015. She was seen at [facility] and underwent a right sided core [...] positive, >90% Ki-67 (30-9) positive, 12% CK8 (07wgseK55) positive CK5-6 (D5 & 1684) negative Calponin-1 (OH154S) negative P40 (BC28) negative E-Cad (ECH-6) positive MORPHOMETRIC ANALYSIS ER (clone 6F11) 15%, weak intensity WV (clone 16/1E2) 0% Her-2Neu (clone CB11) 3+ Block B Calponin-1 (AA379X) negative P40 (BC28) negative CK8 (48wcoaU52) positive INTERPRETATION: A. Right breast 1 o clock, biopsy: Invasive ductal carcinoma, grade 3/3. Positive for estrogen receptors (favorable prognostic indicator). Negative for progesterone receptors (unfavorable prognostic indicator). Positive for overexpression of AJC0hvr. B. Right breast 2 o clock, biopsy: [...] - previously performed on section of tumor ([id number] / [id number]). ER - positive (15%, weak intensity) WV - negative (0%) Her2 krista - positive (3+) Microcalcifications - present in both invasive carcinoma and non-neoplastic tissue. Clinical history - Please make reference to previous specimen ([id number]) right breast at 1 o clock and [...] the date of the service which included lxix-ey-mfdi patient care, completing clinical documentation, performing a medically appropriate examination, counseling and educating the patient/family/caregiver, ordering medications, tests, or procedures, communicating with other HCPs (not separately reported), and communicating results to the patient/family/caregiver. Rip Rivers DO documented in this encounter [facility] 05-23-2024 History of Presen t illness [...] Ana Velásquez RN documented in this encounter [facility] 05-14-2024 History of Presen t illness [...] been reviewed prior to dispensing the medication. Assistive Technology Trainer Assessment Patient confirmed: Yes Med/dose confirmed: Yes Supplies needed: No supplies needed Missed doses: Yes Count of missed doses: 1 Reason for missed doses: Forgot dose Estimated days supply on hand: 0 (#3 on hand) Next cycle/dose due: 05/21/24 Copay amount: 0 Delivery method: FedEx Signature required: Waived on patient request Delivery address: [address] [address] Delivery date: 05/17/24 Questions or concerns for [...] facility-administered medications on file prior to visit. [facility] CLINICAL ASSESSMENT - HEMATOLOGY ONCOLOGY [...] hx of coronary artery disease), GI toxicity, ukkq-aon-ywvu syndrome (onset ~79 days), hepatotoxicity (onset ~64 [...] toxicity Shanna Davis documented in this encounter [facility] 05-04-2024 History of Presen t illness Narrative . documented in this encounter [facility] 05-04-2024 Telephone encounter Note Prescription Refill [...] Elliott LPN May 04, 2024 7:[address] [facility] 05-04-2024 Miscellaneous Notes Prescription Refill Information [...] 2024 7:52 AM documented in this encounter [facility] 05-02-2024 History of Presen t illness Narrative Oncologic problem(s): 1) Metastatic recurrence of ER positive, WV negative, HER2 positive breast cancer. 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 HPI: The patient is a 68 year old female who discovered a lump on the lower inner portion of her right breast in the fall of 2015. She was seen at [facility] and underwent a right sided core [...] positive, >90% Ki-67 (30-9) positive, 12% CK8 (99isrbQ88) positive CK5-6 (D5 & 1684) negative Calponin-1 (KM283C) negative P40 (BC28) negative E-Cad (ECH-6) positive MORPHOMETRIC ANALYSIS ER (clone 6F11) 15%, weak intensity WV (clone 16/1E2) 0% Her-2Neu (clone CB11) 3+ Block B Calponin-1 (KZ256E) negative P40 (BC28) negative CK8 (69fzpcN06) positive INTERPRETATION: A. Right breast 1 o clock, biopsy: Invasive ductal carcinoma, grade 3/3. Positive for estrogen receptors (favorable prognostic indicator). Negative for progesterone receptors (unfavorable prognostic indicator). Positive for overexpression of NKR7fzr. B. Right breast 2 o clock, biopsy: [...] - previously performed on section of tumor ([id number] / [id number]). ER - positive (15%, weak intensity) WV - negative (0%) Her2 krista - positive (3+) Microcalcifications - present in both invasive carcinoma and non-neoplastic tissue. Clinical history - Please make reference to previous specimen ([id number]) right breast at 1 o clock and [...] Rip Rivers DO documented in this encounter [facility] 04-24-2024 History of Presen t illness [...] PATIENT PRESENTS WITH AN IMPLANTABLE OR ATTACHED SERVICE GREETER: No RADIOLOGY DEPARTMENT: CT; Exam(s) Completed: Chest Abdomen Pelvis PERIPHERAL IV DATA: power port accessed by Smart Pipe SIGNED BY: RT Ashley(R) April 24, 2024 11:09 AM documented in this encounter [facility] 04-23-2024 Telephone encounter Note Scheduled. Patient informed. [facility] Work Phone: 04-23-2024 Miscellaneous Notes Scheduled. Patient informed. Pt would like to use port for appt on 04/24/[address] @ 9:20 drink 10:20 scan Please call pt to confirm time documented in this encounter [facility] 04-23-2024 Telephone encounter Note Pt would like to use port for appt on 04/24/[address] @ 9:20 drink 10:20 scan Please call pt to confirm time [facility] 04-20-2024 History of Presen t illness [...] been reviewed prior to dispensing the medication. Assistive Technology Trainer Assessment Patient confirmed: Yes Med/dose confirmed: Yes Supplies needed: No supplies needed Missed doses: No Estimated days supply on hand: 2 Next cycle/dose due: 04/30/24 Copay amount: 0 Delivery method: FedEx Signature required: Waived on patient request Delivery address: [address] [phone] Delivery date: 04/26/24 Questions or concerns for [...] facility-administered medications on file prior to visit. [facility] CLINICAL ASSESSMENT - HEMATOLOGY ONCOLOGY [...] hx of coronary artery disease), GI toxicity, nbmv-mag-ffvb syndrome (onset ~79 days), hepatotoxicity (onset ~64 [...] toxicity Crystal Fuentes documented in this encounter [facility] 04-11-2024 History of Presen t illness Narrative Chief Complaint Patient presents with: Established Patient HPI: Renate Christiansen is a 68 year old female who presents here today for evaluation for treatment tomorrow. Per Dr. Rivers's previous note: H/o discovered a lump on the lower inner portion of her right breast in the fall of 2015. She was seen at [facility] and underwent a right sided core biopsy on 02/16/2016 by interventional radiology. The tissue specimen demonstrated invasive ductal carcinoma, [place] grade 2. ER positive (90%, very weak) [...] positive, >90% Ki-67 (30-9) positive, 12% CK8 (41wechC52) positive CK5-6 (D5 & 1684) negative Calponin-1 (HX168X) negative P40 (BC28) negative E-Cad (ECH-6) positive MORPHOMETRIC ANALYSIS ER (clone 6F11) 15%, weak intensity WV (clone 16/1E2) 0% Her-2Neu (clone CB11) 3+ Block B Calponin-1 (ST180V) negative P40 (BC28) negative CK8 (42maniX74) positive INTERPRETATION: A. Right breast 1 o clock, biopsy: Invasive ductal carcinoma, grade 3/3. Positive for estrogen receptors (favorable prognostic indicator). Negative for progesterone receptors (unfavorable prognostic indicator). Positive for overexpression of PEE1pjr. B. Right breast 2 o clock, biopsy: [...] ductal carcinoma (no special type) Histologic Grade ([place] grade): Glandular/tubular differentiation - score 3 Nuclear [...] - previously performed on section of tumor ([id number] / [id number]). ER - positive (15%, weak intensity) WV - negative (0%) Her2 krista - positive (3+) Microcalcifications - present in both invasive carcinoma and non-neoplastic tissue. Clinical history - Please make reference to previous specimen ([id number]) right breast at 1 o clock and [...] k/uL 0.77 (L) 0.77 (L) 0.79 (L) [place]% % 16.9 12.9 14.1 Abs [place] <0.87 k/uL 0.53 0.40 0.51 Eosin% % [...] Caity Cote APRN.ALESSANDRO documented in this encounter [facility] 04-11-2024 History of Presen t illness Narrative Patient is here for IVAD port flush/blood draw per [facility] protocol. IVAD is located in right upper [...] tolerated procedure well. documented in this encounter [facility] 03-30-2024 History of Presen t illness [...] been reviewed prior to dispensing the medication. Assistive Technology Trainer Assessment Patient confirmed: Yes Med/dose confirmed: Yes Supplies needed: No supplies needed Missed doses: No Estimated days supply on hand: 2 Next cycle/dose due: 03/30/24 Copay amount: 0 Copay form of payment: (NA) Payment confirmed: Yes Delivery method: FedEx Signature required: Waived on patient request Delivery address: [address] [place], [place] [id number] Delivery date: 04/05/24 Questions or concerns for [...] facility-administered medications on file prior to visit. [facility] CLINICAL ASSESSMENT - HEMATOLOGY ONCOLOGY [...] hx of coronary artery disease), GI toxicity, ggyl-hgj-aepb syndrome (onset ~79 days), hepatotoxicity (onset ~64 [...] Jethro Blackmon RPh documented in this encounter [facility] 03-22-2024 History of Presen t illness Narrative Pt. Was seen by Dr. Rivers yesterday for an office visit. Pt states no changes since yesterday and verbally agrees to treatment. documented in this encounter [facility] 03-21-2024 History of Presen t illness Narrative Oncologic problem(s): 1) Metastatic recurrence of ER positive, WV negative, HER2 positive breast cancer. 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 HPI: The patient is a 68 year old female who discovered a lump on the lower inner portion of her right breast in the fall of 2015. She was seen at [facility] and underwent a right sided core biopsy on 02/16/2016 by interventional radiology. The tissue specimen demonstrated invasive ductal carcinoma, [place] grade 2. ER positive (90%, very weak) [...] positive, >90% Ki-67 (30-9) positive, 12% CK8 (88uacdE12) positive CK5-6 (D5 & 1684) negative Calponin-1 (PB542Q) negative P40 (BC28) negative E-Cad (ECH-6) positive MORPHOMETRIC ANALYSIS ER (clone 6F11) 15%, weak intensity WV (clone 16/1E2) 0% Her-2Neu (clone CB11) 3+ Block B Calponin-1 (NL818O) negative P40 (BC28) negative CK8 (03pinjS10) positive INTERPRETATION: A. Right breast 1 o clock, biopsy: Invasive ductal carcinoma, grade 3/3. Positive for estrogen receptors (favorable prognostic indicator). Negative for progesterone receptors (unfavorable prognostic indicator). Positive for overexpression of ELY9rxq. B. Right breast 2 o clock, biopsy: [...] - previously performed on section of tumor ([id number] / [id number]). ER - positive (15%, weak intensity) WV - negative (0%) Her2 krista - positive (3+) Microcalcifications - present in both invasive carcinoma and non-neoplastic tissue. Clinical history - Please make reference to previous specimen ([id number]) right breast at 1 o clock and [...] Lymph 1.00 - 4.00 k/uL 0.77 (L) [place]% % 12.9 Abs [place] <0.87 k/uL 0.40 Eosin% % 6.1 Abs [...] which included preparing to see the patient, oghc-nw-kqkf patient care, completing clinical documentation, obtaining and/or reviewing separately obtained history, performing a medically appropriate examination, counseling and educating the patient/family/caregiver, ordering medications, tests, or procedures, communicating with other HCPs (not separately reported), and communicating results to the patient/family/caregiver. Rip Rivers DO documented in this encounter [facility] 03-09-2024 History of Presen t illness [...] been reviewed prior to dispensing the medication. Assistive Technology Trainer Assessment Patient confirmed: Yes Med/dose confirmed: Yes Supplies needed: No supplies needed Missed doses: No Estimated days supply on hand: 2 Next cycle/dose due: 03/19/24 Copay amount: 0 Payment confirmed: Yes Delivery method: FedEx Signature required: Waived on patient request Delivery address: [address] [phone] Delivery date: 03/15/24 Questions or concerns for [...] 0.9 % (flush) 10 mL (BD POSIFLUSH) [facility] CLINICAL ASSESSMENT - HEMATOLOGY ONCOLOGY [...] hx of coronary artery disease), GI toxicity, hkap-nrf-ubsl syndrome (onset ~79 days), hepatotoxicity (onset ~64 [...] disease progression or unacceptable toxicity Rashida Butler (Who@) documented in this encounter [facility] 02-27-2024 History of Presen t illness Narrative Chief Complaint Patient presents with: Established Patient HPI: Renate Christiansen is a 68 year old female who presents here today for evaluation for treatment tomorrow. Per Dr. Rivers's previous notes: H/o pt. discovered a lump on the lower inner portion of her right breast in the fall of 2015. She was seen at [facility] and underwent a right sided core biopsy on 02/16/2016 by interventional radiology. The tissue specimen demonstrated invasive ductal carcinoma, [place] grade 2. ER positive (90%, very weak) [...] positive, >90% Ki-67 (30-9) positive, 12% CK8 (51vnhqC16) positive CK5-6 (D5 & 1684) negative Calponin-1 (UK153C) negative P40 (BC28) negative E-Cad (ECH-6) positive MORPHOMETRIC ANALYSIS ER (clone 6F11) 15%, weak intensity WV (clone 16/1E2) 0% Her-2Neu (clone CB11) 3+ Block B Calponin-1 (JS982V) negative P40 (BC28) negative CK8 (13wmrjZ27) positive INTERPRETATION: A. Right breast 1 o clock, biopsy: Invasive ductal carcinoma, grade 3/3. Positive for estrogen receptors (favorable prognostic indicator). Negative for progesterone receptors (unfavorable prognostic indicator). Positive for overexpression of EJA3ezh. B. Right breast 2 o clock, biopsy: [...] - previously performed on section of tumor ([id number] / [id number]). ER - positive (15%, weak intensity) WV - negative (0%) Her2 krista - positive (3+) Microcalcifications - present in both invasive carcinoma and non-neoplastic tissue. Clinical history - Please make reference to previous specimen ([id number]) right breast at 1 o clock and [...] k/uL 0.79 (L) 0.98 (L) 0.77 (L) [place]% % 15.6 7.0 16.9 Abs [place] <0.87 k/uL 0.52 0.29 0.53 Eosin% % [...] as necessary for today's visit. Caity Cote APRN.CLIENT REPORTING ASSOCIATE documented in this encounter [facility] 02-03-2024 Telephone encounter Note This was sent in 02/02/2024. Jazlyn Harding LPN [facility] 02-03-2024 Miscellaneous Notes This was sent in 02/02/2024. Jazlyn Harding LPN documented in this encounter [facility] 02-03-2024 History of Presen t illness Narrative Chief Complaint Patient presents with: Established Patient HPI: Renate Christiansen is a 68 year old female who presents here today for evaluation for treatment on Tuesday. Per Dr. Rivers's previous notes: H/o pt. discovered a lump on the lower inner portion of her right breast in the fall. She was seen at [facility] and underwent a right sided core [...] positive, >90% Ki-67 (30-9) positive, 12% CK8 (62qzmoP07) positive CK5-6 (D5 & 1684) negative Calponin-1 (WU494N) negative P40 (BC28) negative E-Cad (ECH-6) positive MORPHOMETRIC ANALYSIS ER (clone 6F11) 15%, weak intensity WV (clone 16/1E2) 0% Her-2Neu (clone CB11) 3+ Block B Calponin-1 (DK029M) negative P40 (BC28) negative CK8 (51rxapV22) positive INTERPRETATION: A. Right breast 1 o clock, biopsy: Invasive ductal carcinoma, grade 3/3. Positive for estrogen receptors (favorable prognostic indicator). Negative for progesterone receptors (unfavorable prognostic indicator). Positive for overexpression of IOD8mxh. B. Right breast 2 o clock, biopsy: [...] - previously performed on section of tumor ([id number] / [id number]). ER - positive (15%, weak intensity) WV - negative (0%) Her2 krista - positive (3+) Microcalcifications - present in both invasive carcinoma and non-neoplastic tissue. Clinical history - Please make reference to previous specimen ([id number]) right breast at 1 o clock and [...] - 4.00 k/uL 0.78 (L) 0.79 (L) [place]% % 12.7 15.6 Abs [place] <0.87 k/uL 0.55 0.52 Eosin% % 10.4 [...] Caity Cote APRN.ALESSANDRO documented in this encounter [facility] 01-13-2024 Telephone encounter Note Patient informed of 01/[address] [facility] Work Phone: 01-13-2024 Miscellaneous Notes Patient [...] Carla Almonte RN documented in this encounter [facility] 01-13-2024 Telephone encounter Note Treatment moved as requested. Future appointments rescheduled. 1st attempt. Message left for patient to contact office to confirm Tuesday appointment for treatment. [facility] 01-13-2024 Telephone encounter Note With lab and office visit? [facility] 01-12-[address] Rivers would like to move patients Herceptin treatment up to next week, Tuesday or Tuesday. Please contact patient to schedule. Carla Almonte RN [facility] 01-11-2024 Telephone encounter Note New order faxed. Jazlyn Harding LPN [facility] 01-11-2024 Miscellaneous Notes New order faxed. Jazlyn Harding LPN Reed from [facility] calling to ask if Dr. Rivers wants a regular echo or a limited echo? If limited is ok, will need new order. (Order pended just in case) Limited Oncology echo will check everything but the valves. Reed Jazlyn Harding LPN documented in this encounter [facility] 01-11-2024 Telephone encounter Note Reed from [facility] calling to ask if Dr. Rivers wants a regular echo or a limited echo? If limited is ok, will need new order. (Order pended just in case) Limited Oncology echo will check everything but the valves. Reed # [phone] Jazlyn Harding LPN [facility] 01-10-2024 Telephone encounter Note Spoke to patient. Patient stated she forgot that she hasn't taken today's dose and will be done on Tuesday. Patient will continue with the original plan of resuming Tuesday. Carla Almonte RN [facility] 01-10-2024 Miscellaneous Notes Spoke to patient. [...] Carla Almonte RN documented in this encounter [facility] 01-10-2024 Telephone encounter Note Patient informed of Dr. Rivers's response, stated understanding. Patient has 6 tablets of Levaquin left, she will finish on Tuesday. Okay to resume as directed or would you like her to postpone starting until Tuesday? Thank you. Carla Almonte RN [facility] 01-10-2024 Telephone encounter Note Called patient, no answer, left a requesting a call back. Carla Almonte RN [facility] 01-09-2024 Telephone encounter Note She should [...] a few weeks. Rip Rivers DO T [facility] 01-09-2024 Telephone encounter Note Patient stated [...] I haven't coughed at all. Carla Almonte, [facility] 01-06-2024 Telephone encounter Note Spoke with bank clerk from [facility] and the order was changed to be an echo and not an oncology echo and the codes work (except for the first one) and patient is good to go. Alexia Stephens T [facility] 01-06-2024 Miscellaneous Notes Spoke with bank clerk from [facility] and the order was changed to be an echo and not an oncology echo and the codes work (except for the first one) and patient is good to go. Alexia Stephens Dr. Rivers- please file new order. Jazlyn Harding LPN Spoke with staff at [facility] to schedule ECHO and neither ICD10 code will pass/work with the patient's insurance for approval. Please advise/change orders to a difference diagnosis code. Alexia Stephens Dr. Rivers- please file order. PSS- please assist in scheduling echo at [facility]. Jazlyn Harding LPN Call placed to patient. Reviewed instructions and pt voices understanding. Echo order placed. echocardiogram to be done at [facility], Dr. Galeano to read. 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 PSS please assist [...] echocardiogram to be done at [facility], Dr. Galeano to read. Would like that done as soon as able. Let's check in with her early next week regarding her symptoms of cough and getting short of breath when lying down. Rip Rivers DO documented in this encounter [facility] 01-06-[address] Rivers- please file new order. Jazlyn Harding LPN [facility] 01-06-2024 Telephone encounter Note Spoke with staff at [facility] to schedule ECHO and neither ICD10 code will pass/work with the patient's insurance for approval. Please advise/change orders to a difference diagnosis code. Alexia Stephens [facility] 01-06-[address] Rivers- please file order. PSS- please assist in scheduling echo at [facility]. Jazlyn Harding LPN [facility] 01-05-2024 Telephone encounter Note Call placed to patient. Reviewed instructions and pt voices understanding. Echo order placed. echocardiogram to be done at [facility], Dr. Galeano to read. 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 PSS please assist with scheduling. Bruna Mcmanus LPN [facility] 01-04-[address] scan shows worsening inflammation in the right upper lung but it does not have the classic look of a drug-induced pneumonitis. May be a pneumonia so I would like her to take Levaquin. Rx sent. Continue to hold Herceptin, Tukysa and capecitabine for now. Please pend order for echocardiogram to be done at [facility], Dr. Galeano to read. Would like that done as soon as able. Let's check in with her early next week regarding her symptoms of cough and getting short of breath when lying down. Rip Rivers DO [facility] 01-04-2024 History of Presen t illness [...] PATIENT PRESENTS WITH AN IMPLANTABLE OR ATTACHED SERVICE GREETER: No RADIOLOGY DEPARTMENT: General X-ray: Exam(s) Completed: Chest X-Ray PERIPHERAL IV DATA: Not applicable SIGNED BY: RT Jamar(R) January 04, 2024 11:16 AM documented in this encounter [facility] 01-04-2024 History of Presen t illness Narrative Oncologic problem(s): 1) Metastatic recurrence of ER positive, WV negative, HER2 positive breast cancer. 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 HPI: The patient is a 67 year old female who discovered a lump on the lower inner portion of her right breast in the fall of 2015. She was seen at [facility] and underwent a right sided core [...] positive, >90% Ki-67 (30-9) positive, 12% CK8 (41qfguO24) positive CK5-6 (D5 & 1684) negative Calponin-1 (IO480V) negative P40 (BC28) negative E-Cad (ECH-6) positive MORPHOMETRIC ANALYSIS ER (clone 6F11) 15%, weak intensity WV (clone 16/1E2) 0% Her-2Neu (clone CB11) 3+ Block B Calponin-1 (ZF879H) negative P40 (BC28) negative CK8 (61jdixK10) positive INTERPRETATION: A. Right breast 1 o clock, biopsy: Invasive ductal carcinoma, grade 3/3. Positive for estrogen receptors (favorable prognostic indicator). Negative for progesterone receptors (unfavorable prognostic indicator). Positive for overexpression of RFS0ojj. B. Right breast 2 o clock, biopsy: [...] - previously performed on section of tumor ([id number] / [id number]). ER - positive (15%, weak intensity) WV - negative (0%) Her2 krista - positive (3+) Microcalcifications - present in both invasive carcinoma and non-neoplastic tissue. Clinical history - Please make reference to previous specimen ([id number]) right breast at 1 o clock and [...] which included preparing to see the patient, azik-aj-iynu patient care, completing clinical documentation, obtaining and/or reviewing separately obtained history, performing a medically appropriate examination, counseling and educating the patient/family/caregiver, ordering medications, tests, or procedures, communicating with other HCPs (not separately reported), and communicating results to the patient/family/caregiver. Rip Rivers DO documented in this encounter [facility] 12-30-2023 History of Presen t illness [...] laboratory parameters, disease state markers and outcomes. Assistive Technology Trainer Assessment Patient confirmed: Yes Med/dose confirmed: Yes Supplies needed: No supplies needed Missed doses: No Estimated days supply on hand: 0 Next cycle/dose due: 01/06/24 Copay amount: 0 Copay form of payment: (N/A) Payment confirmed: Yes Delivery method: FedEx Signature required: No Delivery address: [address] [place] [address] Delivery date: 01/03/24 (Pt not expecting changes [...] 0.9 % (flush) 10 mL (BD POSIFLUSH) [facility] CLINICAL ASSESSMENT - HEMATOLOGY ONCOLOGY [...] hx of coronary artery disease), GI toxicity, nuso-rav-bmvt syndrome (onset ~79 days), hepatotoxicity (onset ~64 [...] toxicity Ruth Mejia documented in this encounter [facility] 12-22-2023 History of Presen t illness [...] PATIENT PRESENTS WITH AN IMPLANTABLE OR ATTACHED SERVICE GREETER: No ALLERGIES: Reviewed and unchanged CONTRAST ALLERGY: [...] N/A PERIPHERAL IV DATA: iv started in [facility] RADIOLOGY DEPARTMENT: CT; Exam(s) Completed: Chest Abdomen Pelvis SIGNATURE: RT Ashley(R) PATIENT NAME: Renate Christiansen DATE: December 22, 2023 TIME: 12:46 PM documented in this encounter [facility] 12-22-2023 Telephone encounter Note Spoke with patient and she will be in at 10 for hydration. Alexia Stephens [facility] 12-22-2023 Miscellaneous Notes Spoke with patient [...] definitely hydrate prior to CT scans. Rip A Masci, DO Pt. Scheduled for CT scan tomorrow. 12/14 Cr 1.6 GFR 35 Tech questioning hydration prior to CT? Or do you want her redrawn tomorrow? Chrissie Elliott LPN documented in this encounter [facility] 12-21-2023 Telephone encounter Note Please let patient know she can come in at 10 for her hydration prior to CT @ 11:20. Please schedule on 1st floor as 2nd floor already has appointments then. [facility] 12-21-2023 Telephone encounter Note Chemo nurse (2nd floor), please advise of time for hydration. [facility] Work Phone: 12-21-2023 Telephone encounter Note There has been increase in her serum creatinine very recently and looks like she has been having diarrhea. Could be from either Tukysa or capecitabine or both. I would definitely hydrate prior to CT scans. Rip Rivers DO [facility] 12-21-2023 Telephone encounter Note Pt. Scheduled for CT scan tomorrow. 12/14 Cr 1.6 GFR 35 Tech questioning hydration prior to CT? Or do you want her redrawn tomorrow? Chrissie Elliott LPN [facility] 12-15-2023 History of Presen t illness Narrative Assessment unchanged from 12/14/23 office visit with Mary Cote CNP. CR today 1.6. Zometa held and to recheck on and give on 01/05/24 after repeat CMP documented in this encounter [facility] 12-15-2023 Telephone encounter Note Information given to patient verbalizing understandin [facility] 12-15-2023 Miscellaneous Notes Information given to patient verbalizing understandin Message left for patient to contact office. Jazlyn Harding LPN Please inform pt. that her potassium is normal. Advise pt. that she needs to drink more water-her creat. bumped up some. Thank you. Caity Cote APRN.ALESSANDRO documented in this encounter [facility] 12-14-2023 Telephone encounter Note Message left for patient to contact office. Jazlyn Harding LPN [facility] 12-14-2023 Telephone encounter Note Please inform pt. that her potassium is normal. Advise pt. that she needs to drink more water-her creat. bumped up some. Thank you. Caity Cote APRN.CLIENT REPORTING ASSOCIATE [facility] 12-14-2023 History of Presen t illness Narrative Chief Complaint Patient presents with: Established Patient HPI: Renate Christiansen is a 68 year old female who presents here today for evaluation for treatment tomorrow. Per Dr. Rivers's previous note: H/o discovered a lump on the lower inner portion of her right breast in the fall of 2015. She was seen at [facility] and underwent a right sided core [...] positive, >90% Ki-67 (30-9) positive, 12% CK8 (07nqtrG17) positive CK5-6 (D5 & 1684) negative Calponin-1 (RN260V) negative P40 (BC28) negative E-Cad (ECH-6) positive MORPHOMETRIC ANALYSIS ER (clone 6F11) 15%, weak intensity WV (clone 16/1E2) 0% Her-2Neu (clone CB11) 3+ Block B Calponin-1 (BM428Y) negative P40 (BC28) negative CK8 (36rjxpD23) positive INTERPRETATION: A. Right breast 1 o clock, biopsy: Invasive ductal carcinoma, grade 3/3. Positive for estrogen receptors (favorable prognostic indicator). Negative for progesterone receptors (unfavorable prognostic indicator). Positive for overexpression of UJZ7zzg. B. Right breast 2 o clock, biopsy: [...] - previously performed on section of tumor ([id number] / [id number]). ER - positive (15%, weak intensity) WV - negative (0%) Her2 krista - positive (3+) Microcalcifications - present in both invasive carcinoma and non-neoplastic tissue. Clinical history - Please make reference to previous specimen ([id number]) right breast at 1 o clock and [...] k/uL 0.87 (L) 0.86 (L) 0.75 (L) [place]% % 10.6 10.3 11.8 Abs [place] <0.87 k/uL 0.38 0.36 0.57 Eosin% % [...] Caity Cote APRN.CNP documented in this encounter [facility] 12-07-2023 History of Presen t illness [...] laboratory parameters, disease state markers and outcomes. Assistive Technology Trainer Assessment Patient confirmed: Yes Med/dose confirmed: Yes Supplies needed: No supplies needed Missed doses: No Estimated days supply on hand: (Has doses for today and tomorrow.) Next cycle/dose due: 12/16/23 Copay amount: 0 Delivery method: FedEx Signature required: Waived on patient request Delivery address: [address] [id number] Delivery date: 12/13/23 (Has appointmetn the rest [...] 0.9 % (flush) 10 mL (BD POSIFLUSH) [facility] Visit Assessment - Hematology/Oncology: [...] hx of coronary artery disease), GI toxicity, jyxi-qgm-bknh syndrome (onset ~79 days), hepatotoxicity (onset ~64 [...] toxicity Shanna Davis documented in this encounter [facility] 11-23-2023 History of Presen t illness Narrative Oncologic problem(s): 1) Metastatic recurrence of ER positive, WV negative, HER2 positive breast cancer. 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 HPI: The patient is a 67 year old female who discovered a lump on the lower inner portion of her right breast in the fall of 2015. She was seen at [facility] and underwent a right sided core biopsy on 02/16/2016 by interventional radiology. The tissue specimen demonstrated invasive ductal carcinoma, [place] grade 2. ER positive (90%, very weak) [...] positive, >90% Ki-67 (30-9) positive, 12% CK8 (70nkmfH70) positive CK5-6 (D5 & 1684) negative Calponin-1 (OT398G) negative P40 (BC28) negative E-Cad (ECH-6) positive MORPHOMETRIC ANALYSIS ER (clone 6F11) 15%, weak intensity WV (clone 16/1E2) 0% Her-2Neu (clone CB11) 3+ Block B Calponin-1 (EY361S) negative P40 (BC28) negative CK8 (79krjgM19) positive INTERPRETATION: A. Right breast 1 o clock, biopsy: Invasive ductal carcinoma, grade 3/3. Positive for estrogen receptors (favorable prognostic indicator). Negative for progesterone receptors (unfavorable prognostic indicator). Positive for overexpression of OFO4pvc. B. Right breast 2 o clock, biopsy: [...] ductal carcinoma (no special type) Histologic Grade ([place] grade): Glandular/tubular differentiation - score 3 Nuclear [...] - previously performed on section of tumor ([id number] / [id number]). ER - positive (15%, weak intensity) WV - negative (0%) Her2 krista - positive (3+) Microcalcifications - present in both invasive carcinoma and non-neoplastic tissue. Clinical history - Please make reference to previous specimen ([id number]) right breast at 1 o clock and [...] subcutaneous metastasis near xyphoid. LABS: Latest Ref [facility] 11/23/2023 WBC 3.70 - 11.00 k/uL 3.51 [...] Lymph 1.00 - 4.00 k/uL 0.86 (L) [place]% % 10.3 Abs [place] <0.87 k/uL 0.36 Eosin% % 10.0 Abs [...] which included preparing to see the patient, okrk-em-bzxw patient care, completing clinical documentation, obtaining and/or reviewing separately obtained history, performing a medically appropriate examination, counseling and educating the patient/family/caregiver, ordering medications, tests, or procedures, communicating with other HCPs (not separately reported), and communicating results to the patient/family/caregiver. Rip Rivers DO documented in this encounter [facility] 11-15-2023 Telephone encounter Note Patient called to clarify if she should continue taking tukysa daily. Reviewed prescription instructions and informed patient tukysa is daily, capecitabine is 2 weeks on and 1 week off. Patient stated understanding of discussed information. Carla Almonte RN [facility] 11-15-2023 Miscellaneous Notes Patient called to clarify if she should continue taking tukysa daily. Reviewed prescription instructions and informed patient tukysa is daily, capecitabine is 2 weeks on and 1 week off. Patient stated understanding of discussed information. Carla Almonte RN Patient called with questions regarding how to take Tukysa. Please advise. documented in this encounter [facility] 11-15-2023 Telephone encounter Note Patient called with questions regarding how to take Tukysa. Please advise. [facility] Work Phone: 11-11-2023 Telephone encounter Note [...] if unable to comply. Carla Almonte RN [facility] 11-11-2023 Miscellaneous Notes ORAL ANTI-CANCER AGENTS [...] Carla Almonte RN documented in this encounter [facility] 11-11-2023 Telephone encounter Note ORAL ANTI-CANCER AGENTS FOLLOW-UP PHONE CALL/VISIT Patient identified by name and date of . NO Patient is on cycle 1, week 2, day 8 of Capecitabine (Xeloda) and tucatinib for Breast Cancer. Called patient, no answer, left a VM requesting a call back from patient. Carla Almonte RN [facility] 11-09-2023 Telephone encounter Note This was sent to [facility] in [place] 11/01/2023: E-Prescribing Status: Receipt confirmed by pharmacy (11/01/2023 9:54 AM EDT) Jazlyn Harding LPN [facility] 11-09-2023 Miscellaneous Notes This was sent to [facility] in [place] 11/01/2023: E-Prescribing Status: Receipt confirmed by pharmacy (11/01/2023 9:54 AM EDT) Jazlyn Harding LPN documented in this encounter [facility] 11-03-2023 History of Presen t illness Narrative Assessment unchanged from 11/02/23 office visit with Mary Cote CNP documented in this encounter [facility] 11-02-2023 History of Presen t illness Narrative Chief Complaint Patient presents with: Established Patient HPI: Renate Christiansen is a 68 year old female who presents here today for evaluation for treatment tomorrow. Per Dr. Rivers's previous note: H/o discovered a lump on the lower inner portion of her right breast in the fall. She was seen at [facility] and underwent a right sided core [...] positive, >90% Ki-67 (30-9) positive, 12% CK8 (26scimI49) positive CK5-6 (D5 & 1684) negative Calponin-1 (SS613O) negative P40 (BC28) negative E-Cad (ECH-6) positive MORPHOMETRIC ANALYSIS ER (clone 6F11) 15%, weak intensity WV (clone 16/1E2) 0% Her-2Neu (clone CB11) 3+ Block B Calponin-1 (JS596S) negative P40 (BC28) negative CK8 (01oxxbT42) positive INTERPRETATION: A. Right breast 1 o clock, biopsy: Invasive ductal carcinoma, grade 3/3. Positive for estrogen receptors (favorable prognostic indicator). Negative for progesterone receptors (unfavorable prognostic indicator). Positive for overexpression of BRS8qoy. B. Right breast 2 o clock, biopsy: [...] ductal carcinoma (no special type) Histologic Grade ([place] grade): Glandular/tubular differentiation - score 3 Nuclear [...] - previously performed on section of tumor ([id number] / [id number]). ER - positive (15%, weak intensity) WV - negative (0%) Her2 krista - positive (3+) Microcalcifications - present in both invasive carcinoma and non-neoplastic tissue. Clinical history - Please make reference to previous specimen ([id number]) right breast at 1 o clock and [...] 4.00 k/uL 1.15 0.45 (L) 0.75 (L) [place]% % 11.6 13.3 11.4 Abs [place] <0.87 k/uL 0.52 0.38 0.39 Eosin% % [...] as necessary for today's visit. Caity Cote APRN.CLIENT REPORTING ASSOCIATE documented in this encounter [facility] 11-02-2023 History of Presen t illness Narrative Patient is here for IVAD port flush/blood draw per Nursing [facility] protocol. IVAD is located in right upper [...] tolerated procedure well. documented in this encounter [facility] 10-28-2023 History of Presen t illness [...] Meenu Garay MD documented in this encounter [facility] 10-14-2023 Telephone encounter Note Patient notified and verbalized understanding. Jazlyn Harding LPN [facility] 10-14-2023 Miscellaneous Notes Patient notified and [...] Jazlyn Harding LPN documented in this encounter [facility] 10-14-2023 Telephone encounter Note Yes, hold on starting until she is evaluated at next OV. [facility] 10-14-2023 Telephone encounter Note ORAL ANTI-CANCER [...] teaching topics as needed. Carla Almonte RN [facility] 10-14-2023 Miscellaneous Notes ORAL ANTI-CANCER AGENTS [...] Carla Almonte RN documented in this encounter [facility] 10-14-2023 Telephone encounter Note [place] Care Coordination FOLLOW-UP NOTE Patient identified by name and date of . YES Spoke to patient Summary: (Reason for follow-up) Received Xeloda and Tukysa today. Patient stated she is supposed to start around 11/02 or 11/03? Please confirm. Thank you. Care Coordination Plan: Will follow up after speaking to Dr. Silvestre Almonte RN October 14, [address] [facility] 10-14-2023 Telephone encounter Note Patient received it this morning. [facility] Work Phone: 10-14-2023 Telephone encounter Note Left patient a message to contact this nurse. Did patient receive Tukysa or when will she receive Tukysa? Jazlyn Harding LPN [facility] 10-11-2023 History of Presen t illness Narrative Oncologic problem(s): 1) Metastatic recurrence of ER positive, WV negative, HER2 positive breast cancer. 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 HPI: The patient is a 67 year old female who discovered a lump on the lower inner portion of her right breast in the fall of 2015. She was seen at [facility] and underwent a right sided core biopsy on 02/16/2016 by interventional radiology. The tissue specimen demonstrated invasive ductal carcinoma, [place] grade 2. ER positive (90%, very weak) [...] positive, >90% Ki-67 (30-9) positive, 12% CK8 (39wagpB14) positive CK5-6 (D5 & 1684) negative Calponin-1 (VW264E) negative P40 (BC28) negative E-Cad (ECH-6) positive MORPHOMETRIC ANALYSIS ER (clone 6F11) 15%, weak intensity WV (clone 16/1E2) 0% Her-2Neu (clone CB11) 3+ Block B Calponin-1 (DZ316C) negative P40 (BC28) negative CK8 (79unaqP04) positive INTERPRETATION: A. Right breast 1 o clock, biopsy: Invasive ductal carcinoma, grade 3/3. Positive for estrogen receptors (favorable prognostic indicator). Negative for progesterone receptors (unfavorable prognostic indicator). Positive for overexpression of BFP9tru. B. Right breast 2 o clock, biopsy: [...] ductal carcinoma (no special type) Histologic Grade ([place] grade): Glandular/tubular differentiation - score 3 Nuclear [...] - previously performed on section of tumor ([id number] / [id number]). ER - positive (15%, weak intensity) WV - negative (0%) Her2 krista - positive (3+) Microcalcifications - present in both invasive carcinoma and non-neoplastic tissue. Clinical history - Please make reference to previous specimen ([id number]) right breast at 1 o clock and [...] which included preparing to see the patient, cvzi-ku-uvef patient care, completing clinical documentation, obtaining and/or reviewing separately obtained history, performing a medically appropriate examination, counseling and educating the patient/family/caregiver, ordering medications, tests, or procedures, communicating with other HCPs (not separately reported), and communicating results to the patient/family/caregiver. Rip Rivers DO documented in this encounter [facility] 09-30-2023 Nurse Note AMBULATORY PATIENT EDUCATION [...] Time spent on patient education: [address] [facility] 09-30-2023 Nurse Note AMBULATORY PATIENT EDUCATION [...] education: 10 minutes. documented in this encounter [facility] 09-30-2023 History of Presen t illness Narrative RENATE CHRISTIANSEN [id number] : 1955 09/30/2023 [facility] Department of Radiation Oncology RADIATION ONCOLOGY [...] me. Staff Physician MEENU GARAY M.D. / :56 PM documented in this encounter [facility] 2023 Nurse Note Radiation Therapy - Nursing Note (OTV) PATIENT NAME: Renate Christiansen PATIENT 2023 [facility] FACILITY/LOCATION: [place] NURSING NOTE TYPE: CHEST Subjective Data no complaints Additional Data Do you want to see a Stone Rubber? No Status: Post-menopausal. Stress Scale: On a scale of 0 to 10, what number best describes how much distress you have experienced in the past week?(0 being no distress and 10 being extreme distress) 6 Social work notified: Pt denied need to see dam worker at this time. Nursing Assessment Fatigue: none [...] Cough: None. SIGNED by: Dee Douglas RN [facility] 2023 History of Presen t illness [...] Meenu Garay MD documented in this encounter [facility] 2023 Nurse Note Radiation Therapy - Nursing Note (OTV) PATIENT NAME: Renate Christiansen PATIENT 2023 [facility] FACILITY/LOCATION: [place] NURSING NOTE TYPE: CHEST Subjective Data no complaints Additional Data Do you want to see a Stone Rubber? No Status: Post-menopausal. Stress Scale: On a scale of 0 to 10, what number best describes how much distress you have experienced in the past week?(0 being no distress and 10 being extreme distress) 6 Social work notified: Pt denied need to see dam worker at this time. Nursing Assessment Fatigue: none [...] Dee Douglas RN documented in this encounter [facility] 09-23-2023 Telephone encounter Note Patient had called back and stated she did not receive packet of information. Information was left for patient at check in desk on Tuesday and patient picked up at her OV. Message was left on patients VM stating this nurse will check in later in the month/closer to start date to review medications. Carla Almonte RN [facility] 09-22-2023 History of Presen t illness Narrative No changes to assessment from OV yesterday. Lexie Hartley RN documented in this encounter [facility] 09-21-2023 History of Presen t illness Narrative Oncologic problem(s): 1) Metastatic recurrence of ER positive, WV negative, HER2 positive breast cancer. 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 HPI: The patient is a 67 year old female who discovered a lump on the lower inner portion of her right breast in the fall of 2015. She was seen at [facility] and underwent a right sided core [...] positive, >90% Ki-67 (30-9) positive, 12% CK8 (43bxljE24) positive CK5-6 (D5 & 1684) negative Calponin-1 (TK575N) negative P40 (BC28) negative E-Cad (ECH-6) positive MORPHOMETRIC ANALYSIS ER (clone 6F11) 15%, weak intensity WV (clone 16/1E2) 0% Her-2Neu (clone CB11) 3+ Block B Calponin-1 (UL045V) negative P40 (BC28) negative CK8 (01kvioR65) positive INTERPRETATION: A. Right breast 1 o clock, biopsy: Invasive ductal carcinoma, grade 3/3. Positive for estrogen receptors (favorable prognostic indicator). Negative for progesterone receptors (unfavorable prognostic indicator). Positive for overexpression of OYT7cbd. B. Right breast 2 o clock, biopsy: [...] - previously performed on section of tumor ([id number] / [id number]). ER - positive (15%, weak intensity) WV - negative (0%) Her2 krista - positive (3+) Microcalcifications - present in both invasive carcinoma and non-neoplastic tissue. Clinical history - Please make reference to previous specimen ([id number]) right breast at 1 o clock and [...] subcutaneous metastasis near xyphoid. LABS: Latest Ref [facility] 09/21/2023 WBC 3.70 - 11.00 k/uL 4.48 [...] Abs Lymph 1.00 - 4.00 k/uL 1.15 [place]% % 11.6 Abs [place] <0.87 k/uL 0.52 Eosin% % 7.8 Abs [...] for hypercalcemia). -Due for echocardiogram--will order at [facility]. -Continue follow-up with Dr. Galeano. -Previously stopped [...] Rip Rivers DO documented in this encounter [facility] 09-16-2023 Telephone encounter Note ORAL ANTI-CANCER AGENTS EDUCATION Called and left a message requesting a call back to confirm that patient received oral chemo information. Carla Almonte RN [facility] 09-15-2023 History of Presen t illness [...] PATIENT PRESENTS WITH AN IMPLANTABLE OR ATTACHED SERVICE GREETER: No RADIOLOGY DEPARTMENT: Ultrasound PERIPHERAL IV DATA: Not applicable SIGNED BY: Jazmin Jacobsen RDMS RVT September 15, 2023 1:44 PM documented in this encounter [facility] 09-13-2023 Nurse Note Radiation Therapy - Patient Education Note PATIENT NAME: Renate Christiasnen PATIENT September 13, 2023 [facility] FACILITY/LOCATION: [place] READINESS TO LEARN Cognitive Ability: [...] need for social work, van service, and cruise coordinator. Patient has an Onbody or Implanted device: No Signed by: Dee Douglas RN documented in this encounter [facility] 09-13-2023 History of Presen t illness Narrative RENATE CHRISTIANSEN [id number] 09/13/2023 [facility] Department of Radiation Oncology [facility] RADIATION ONCOLOGY SIMULATION NOTE DATE OF SIMULATION: 09/13/2023 MACHINE: [email or web address] Definition CT Simulator Diagnosis: Metastatic breast cancer with solitary progression of lung metastasis. AREA:Right Lung. PATIENT POSITION: Supine. CONTRAST: None PROTOCOL: None BLOCKING: Custom blocking to be determined at treatment planning. FIXATION DEVICE: In order to achieve accurate and reproducible treatments, the patient is to be immobilized with CIVCO SBRT system, compression belt, and bodyfix. PROCEDURE: [...] M.D./hudson 41:57 PM documented in this encounter [facility] 09-13-2023 History of Presen t illness Narrative RENATE CHRISTIANSEN [id number] 09/13/2023 [facility] Department of Radiation Oncology Treatment Planning [...] M.D. 41:56 PM documented in this encounter [facility] 09-05-2023 Miscellaneous Notes CYCLE 1/DAY 1 [...] Chanelle Westfall RN documented in this encounter [facility] 08-30-2023 Miscellaneous Notes Patient informed and US scheduled Check out comments: Discontinue Anitraertu, had scheduled this , can keep the [...] RUQ. Alexia Stephens documented in this encounter [facility] 08-30-2023 History of Presen t illness Narrative [facility] received prescription(s) for Capecitabine and Tukysa from Dr. Rivers's office. Benefits investigation was conducted, indicating that a prior authorization is not required at this time per patient's plan with Medicare B and [employer]. Prescriptions will now be processed through [facility] for determination of next steps. Shanna Davis documented in this encounter [facility] 08-30-2023 History of Presen t illness Narrative Diagnosis: 1) Metastatic recurrence of ER positive, WV negative, HER2 positive breast cancer. 2) Cardiomyopathy. HPI: The patient is a 67 year old female who discovered a lump on the lower inner portion of her right breast in the fall of 2015. She was seen at [facility] and underwent a right sided core [...] positive, >90% Ki-67 (30-9) positive, 12% CK8 (42enctY12) positive CK5-6 (D5 & 1684) negative Calponin-1 (UP087N) negative P40 (BC28) negative E-Cad (ECH-6) positive MORPHOMETRIC ANALYSIS ER (clone 6F11) 15%, weak intensity WV (clone 16/1E2) 0% Her-2Neu (clone CB11) 3+ Block B Calponin-1 (GT739G) negative P40 (BC28) negative CK8 (28mkcmO12) positive INTERPRETATION: A. Right breast 1 o clock, biopsy: Invasive ductal carcinoma, grade 3/3. Positive for estrogen receptors (favorable prognostic indicator). Negative for progesterone receptors (unfavorable prognostic indicator). Positive for overexpression of NLO9xba. B. Right breast 2 o clock, biopsy: [...] ductal carcinoma (no special type) Histologic Grade ([place] grade): Glandular/tubular differentiation - score 3 Nuclear [...] - previously performed on section of tumor ([id number] / [id number]). ER - positive (15%, weak intensity) WV - negative (0%) Her2 krista - positive (3+) Microcalcifications - present in both invasive carcinoma and non-neoplastic tissue. Clinical history - Please make reference to previous specimen ([id number]) right breast at 1 o clock and [...] subcutaneous metastasis near Xyvoid. LABS: Latest Ref [facility] 08/30/2023 WBC 3.70 - 11.00 k/uL 2.95 [...] Abs Lymph 1.00 - 4.00 k/uL 1.02 [place]% % 14.2 Abs [place] <0.87 k/uL 0.42 Eosin% % 7.8 Abs [...] Rip Rivers DO documented in this encounter [facility] 08-30-2023 History of Presen t illness Narrative Patient is here for IVAD port flush/blood draw per Nursing Darby protocol. IVAD is located in right upper [...] tolerated procedure well. documented in this encounter [facility] 08-26-2023 Nurse Note Radiation Therapy - Nursing Note (Consult) PATIENT NAME: Renate Christiansen PATIENT August 26, 2023 [facility] FACILITY/LOCATION: [place] Chief Complaint: Lung mets Reason for visit: Consult. Referring physician: Internal provider Dr Rivers Subjective Data: no complaints Additional Data Do you want to see a Stone Rubber? No Are you interested in information about fertility? No Status: Post-menopausal Stress Scale: On a scale of 0 to 10, what number best describes how much distress you have experienced in the past week?(0 being no distress and 10 being extreme distress) 7 Social work notified: Pt denied need to see dam worker at this time. SIGNED by: Dee Douglas RN documented in this encounter [facility] 08-26-2023 History of Presen t illness [...] Demerol [Meperidine* Unknown Erythromycin Unknown Latex Rash [place] [Hydrocodone-* Hives Nubain [Nalbuphine * Unknown Paxlovid [Nirmatrel* Intolerance Kidneys shut down Percocet [Oxycodone* Rash, Itching Prednisone Unknown per pt, this was given when had appendicitis and received multiple meds and she developed a rash and they had given her prednisone but at some point it was thought that it wasn't working and maybe it was part of the problem. [place]rr[place] Other: See Comments Migraine headache Sulfa (Sulfonamide [...] that other personnel such as radiation therapists, sql server dba, and physicists will participate in planning and delivery of radiation treatment. Permanent tattoo amado will be placed to aid with positioning for daily treatment and the patient consented. Thank you very much for allowing us to participate in her care. Signed by: Meenu Garay MD cc: Williams Farrell [address] [place] [address] [place] [address] Rip Rivers [address] [facility] [id number] documented in this encounter [facility] 08-25-2023 Miscellaneous Notes Spoke with patient [...] Jazlyn Harding LPN documented in this encounter [facility] 08-22-2023 History of Presen t illness [...] PATIENT PRESENTS WITH AN IMPLANTABLE OR ATTACHED SERVICE GREETER: No CREATININE: Creatinine Date Value Ref Range [...] safety can be found using this link: [email or web address] [email or web address] SIGNATURE: RT Varun(R) PATIENT NAME: Renate Christiansen DATE: August 22, 2023 TIME: 9:22 AM PAGER/CONTACT #: documented in this encounter [facility] 08-17-2023 Discharge summary Note Date/Time August 16, 2023 10:31pm [facility] Medical Records Department [address] [place] [address] Emergency Department Summary 08/16/23 MR#: [id number] Acct: [id number] Name: RENATE CHRISTIANSEN Rep #:[id number] : 1955 67 From: Eze Mack MD PCP: Dr. Williams Farrell, DO Status:R EG ER Location: ED [...] from that she thinks that is related. [facility] Medical History Breast cancer metastasized to [...] Verified 08/16/23 21:50 skin rash hydrocodone [From [place]] Allergy hives and Verified 08/16/23 21:50 nausea [...] % (Auto) 65.5 Lymph % (Auto) 21.9 [place] % (Auto) 7.5 Eos % (Auto) 4.5 [...] Signed: Manish Rogel MD at 0:30 EDT , Discharge [...] Primary Care Provider: Williams Farrell Referrals: Williams Farrell DO [Primary Care Provider] - As soon as possible Disposition Disposition: Home, Self Care What to do if you have Problems For any increased pain, shortness of breath, bleeding, nausea or vomiting, chestpain, or any unexpected problems, contact your Primary Care Provider. Call [facility] ([phone]) or report to the closest Emergency Room. Call 911 if necessary. 08/17/23 0051 <Electronically signed by Eze Mack MD> Cosigner Signature (if applicable): CC: Dr. Williams Farrell DO ~ Signed [facility] Work Phone: 1(787) 731-778303-07-2024 History of Present illness Narrative* Rosemary Romero RN - 08/11/2023 1:00 PM EST Assessment unchanged from 08/10/[address] Rivers documented [facility] History of Present illness Narrative* Meenu [...] minutes Meenu Garay MD documented in this encounter[facility] History of Present illness Narrative* Rip Rivers DO - 08/10/2023 10:12 AM EST Diagnosis: 1) Metastatic recurrence of ER positive, WV negative, HER2 positive breast cancer. 2) Cardiomyopathy. HPI: The patient is a 67 year old female who discovered a lump on the lower inner portion of her right breast in the fall of 2015. She was seen at [facility] and underwent a right sided core [...] positive, >90% Ki-67 (30-9) positive, 12% CK8 (40xbngH61) positive CK5-6 (D5 & 1684) negative Calponin-1 (EL158J) negative P40 (BC28) negative E-Cad (ECH-6) positive MORPHOMETRIC ANALYSIS ER (clone 6F11) 15%, weak intensity WV (clone 16/1E2) 0% Her-2Neu (clone CB11) 3+ Block B Calponin-1 (CR572O) negative P40 (BC28) negative CK8 (31uyhoK18) positive INTERPRETATION: A. Right breast 1 o clock, biopsy: Invasive ductal carcinoma, grade 3/3. Positive for estrogen receptors (favorable prognostic indicator). Negative for progesterone receptors (unfavorable prognostic indicator). Positive for overexpression of KOY3oqy. B. Right breast 2 o clock, biopsy: [...] ductal carcinoma (no special type) Histologic Grade ([place] grade): Glandular/tubular differentiation - score 3 Nuclear [...] - previously performed on section of tumor ([id number] / [id number]). ER - positive (15%, weak intensity) WV - negative (0%) Her2 krista - positive (3+) Microcalcifications - present in both invasive carcinoma and non-neoplastic tissue. Clinical history - Please make reference to previous specimen ([id number]) right breast at 1 o clock and [...] necessary. Rip Rivers DO documented [facility] History of Present illness Narrative* Adriana [...] PATIENT PRESENTS WITH AN IMPLANTABLE OR ATTACHED SERVICE GREETER: No RADIOLOGY DEPARTMENT: CT; Exam(s) Completed: Chest PERIPHERAL IV DATA: Not applicable SIGNED BY: RT Ashley(R) August 03, 2023 3:30 PM documented in this encounterMer[facility] History of Present illness Narrative* Caity Cote APRN.CLIENT REPORTING ASSOCIATE - 07/20/2023 10:42 AM EST Chief Complaint Patient presents with: Established Patient HPI: Renate Christiansen is a 67 year old female who presents here today for evaluation for treatment tomorrow. Per Dr. Rivers's previous note: H/o discovered a lump on the lower inner portion of her right breast in the fall of 2015. She was seen at [facility] and underwent a right sided core [...] positive, >90% Ki-67 (30-9) positive, 12% CK8 (20yalvB58) positive CK5-6 (D5 & 1684) negative Calponin-1 (HN634U) negative P40 (BC28) negative E-Cad (ECH-6) positive MORPHOMETRIC ANALYSIS ER (clone 6F11) 15%, weak intensity WV (clone 16/1E2) 0% Her-2Neu (clone CB11) 3+ Block B Calponin-1 (KZ584D) negative P40 (BC28) negative CK8 (08lagbW11) positive INTERPRETATION: A. Right breast 1 o clock, biopsy: Invasive ductal carcinoma, grade 3/3. Positive for estrogen receptors (favorable prognostic indicator). Negative for progesterone receptors (unfavorable prognostic indicator). Positive for overexpression of IVT1muj. B. Right breast 2 o clock, biopsy: [...] - previously performed on section of tumor ([id number] / [id number]). ER - positive (15%, weak intensity) WV - negative (0%) Her2 krista - positive (3+) Microcalcifications - present in both invasive carcinoma and non-neoplastic tissue. Clinical history - Please make reference to previous specimen ([id number]) right breast at 1 o clock and [...] 4.00 k/uL 0.98 (L) 0.85 (L) 1.06 [place]% % 15.5 13.1 9.6 Abs [place] <0.87 k/uL 0.55 0.39 0.40 Eosin% % [...] as necessary for today's visit. Caity Cote APRN.CLIENT REPORTING ASSOCIATE documented in this encounterMer[facility] History of Present illness Narrative* Williams Childers Evansheladio, DO - 06/16/2023 9:40 AM EST Subjective Patient ID: Renate Christiansen is a 67 y.o. female who presents for Establish Care (PRINCIPAL PLANNER/EST CARE). HPI Patient is [place] 67 y.o. [...] Enhertu now - following with oncology at [facility] - on zometa 2. HTN, Cardiomyopathy 2/2 [...] hypertension [I51.9] Heart disease [facility] Work Phone: 1(502) 741-179911-22-2023 History of Present illness Narrative* Nicolle Funez RN - 04/27/2023 9:36 AM EST . documented in this encounterMer[facility] History of Present illness Narrative* Rip Rivers, - 04/26/2023 10:00 AM EST Diagnosis: 1) Metastatic recurrence of ER positive, WV negative, HER2 positive breast cancer. 2) Cardiomyopathy. HPI: The patient is a 67 year old female who discovered a lump on the lower inner portion of her right breast in the fall of 2015. She was seen at [facility] and underwent a right sided core [...] positive, >90% Ki-67 (30-9) positive, 12% CK8 (98qiurU00) positive CK5-6 (D5 & 1684) negative Calponin-1 (ZU158T) negative P40 (BC28) negative E-Cad (ECH-6) positive MORPHOMETRIC ANALYSIS ER (clone 6F11) 15%, weak intensity WV (clone 16/1E2) 0% Her-2Neu (clone CB11) 3+ Block B Calponin-1 (KP737J) negative P40 (BC28) negative CK8 (56tpelX02) positive INTERPRETATION: A. Right breast 1 o clock, biopsy: Invasive ductal carcinoma, grade 3/3. Positive for estrogen receptors (favorable prognostic indicator). Negative for progesterone receptors (unfavorable prognostic indicator). Positive for overexpression of UVZ5efv. B. Right breast 2 o clock, biopsy: [...] ductal carcinoma (no special type) Histologic Grade ([place] grade): Glandular/tubular differentiation - score 3 Nuclear [...] - previously performed on section of tumor ([id number] / [id number]). ER - positive (15%, weak intensity) WV - negative (0%) Her2 krista - positive (3+) Microcalcifications - present in both invasive carcinoma and non-neoplastic tissue. Clinical history - Please make reference to previous specimen ([id number]) right breast at 1 o clock and [...] Abs Lymph 1.00 - 4.00 k/uL 1.17 [place]% % 11.6 Abs [place] <0.87 k/uL 0.51 Eosin% % 8.0 Abs [...] which included preparing to see the patient, gszu-uu-qoim patient care, completing clinical documentation, obtaining and/or reviewing separately obtained history, performing a medically appropriate examination, counseling and educating the pat ient/family/caregiver, ordering medications, tests, or procedures, communicating with other HCPs (not separately reported), and communicating results to the patient/family/caregiver Rip Rivers DO documented in this encounterMer[facility]11[facility] History of Present illness Narrative* Nicolle Funez RN - 04/26/2023 7:19 AM EST Patient is here for IVAD port flush/blood draw per Nursing Darby protocol. IVAD is located in left upper [...] Patient tolerated procedure well. documented in this encounterMer[facility]11-20-2023 Miscellaneous Notes* Telephone Encounter - Chrissie [...] new order sent to her pharmacy([facility] in [place]). She stated we do not need to call her back wecan just [employer] message her a response. Sonali Cast documented in this encounterMer[facility]11-01-[facility]23 History of Present illness Narrative* Caity Cote APRN.CLIENT REPORTING ASSOCIATE - 04/06/2023 8:36 AM EDT Chief Complaint Patient presents with: Established Patient HPI: Renate Christiansen is a 67 year old female who presents here today for evaluation for treatment tomorrow. Per Dr. Rivers's previous note: H/o pt. discovered a lump on the lower inner portion of her right breast in the fall of 2015. She was seen at [facility] and underwent a right sided core biopsy on 02/16/2016 by interventional radiology. The tissue specimen demonstrated invasive ductal carcinoma, [place] grade 2. ERpositive (90%, very weak) and [...] positive, >90% Ki-67 (30-9) positive, 12% CK8 (81lhywO71) positive CK5-6 (D5 & 1684) negative Calponin-1 (RR318R) negative P40 (BC28) negative E-Cad (ECH-6) positive MORPHOMETRIC ANALYSIS ER (clone 6F11) 15%, weak intensity WV (clone 16/1E2) 0% Her-2Neu (clone CB11) 3+ Block B Calponin-1 (YV997C) negative P40 (BC28) negative CK8 (26ygnaV18) positive INTERPRETATION: A. Right breast 1 o clock, biopsy: Invasive ductal carcinoma, grade 3/3. Positive for estrogen receptors (favorable prognostic indicator). Negative for progesterone receptors (unfavorable prognostic indicator). Positive for overexpression of HNK3leh. B. Right breast 2 o clock, biopsy: [...] - previously performed on section of tumor ([id number] / [id number]). ER - positive (15%, weak intensity) WV - negative (0%) Her2 krista - positive (3+) Microcalcifications - present in both invasive carcinoma and non-neoplastic tissue. Clinical history - Please make reference to previous specimen ([id number]) right breast at 1 o clock and [...] 1.00 - 4.00 k/uL 1.09 1.06 1.20 [place]% % 11.1 10.7 10.4 Abs [place] <0.87 k/uL 0.45 0.46 0.45 Eosin% % [...] visit. Caity Cote APRN.ALESSANDRO documented in this encounterMer[facility]10-25[facility]2023 Miscellaneous Notes* Telephone Encounter - Tiffany Hager - 03/30/2023 3:06 PM EDT Scheduled with patient * Telephone Encounter - Alexia Stephens - 03/30/2023 2:46 PM EDT Per CC Chart, patient needs CT Chest and a follow up call in 2 mos. LM for patient to return call. Alexia Stephens documented in this encounterMer[facility]10[facility]23 History of Present illness Narrative* Meenu [...] minutes Meenu Garay MD documented in this encounterMer[facility]10-20-2023 Miscellaneous Notes* Telephone Encounter - Tiffany Hager - 03/25/2023 1:47 PM EDT Message relayed to patient * Telephone Encounter - Jazlyn Harding LPN - 03/25/2023 8:03 AM EDT Message left for patient to contact office. [employer] message also sent. Jazlyn Harding LPN * Telephone Encounter - Rip Rivers DO - 03/24/2023 5:37 PM EDT Can let her know ultrasound of the thyroid showed stable nodules. Radiologist recommended 1 year follow-up ultrasound. Rip Rivers DO documented in this encounterMer[facility]10[facility]18[facility] History of Present illness Narrative* Doreen Capellan RT(Nayan) - 03/23/2023 10:45 AM EDT Radiology Service [...] 23, 2023 11:03 AM documented in this encounterMer[facility]10-12[facility]23 History of Present illness Narrative* Rosemary Romero RN - 03/17/2023 1:23 PM EDT Assessment unchanged from 03/16/[address] Rivers documented in this encounterMer[facility]10[facility] History of Present illness Narrative* Nicolle Funez RN - 03/16/2023 7:28 AM EDT Patient is here for IVAD port flush/blood draw per Nursing Darby protocol. IVAD is located in left upper [...] Patient tolerated procedure well. documented in this encounterMer[facility]10-06-[facility]23 History of Present illness Narrative* Ruth [...] 11, 2023 11:38 AM documented in this encounterMer[facility]09-20[facility]23 History of Present illness Narrative* Meenu Garay MD, - 02/23/2023 10:38 AM EDT Radiation Oncology [...] planned. Meenu Garay MD documented in this encounterMercy [facility]09-20-[facility]23 Nurse Note* Dee Douglas RN - 02/23/2023 10:38 AM EDT Radiation Therapy - Nursing Note (OTV) PATIENT NAME: Renate Christiansen PATIENT February 23, 2023 [facility] FACILITY/LOCATION: [place] NURSING NOTE TYPE: BREAST- metastatic Subjective Data no complants Additional Data Do you want to see a Stone Rubber? No Status: Post-menopausal. Stress Scale: On a scale of 0 to 10, what number best describes how much distress you have experienced in the past week?(0 being no distress and 10 being extreme distress) 5 Social work notified: Pt denied need to see dam worker at this time. Nursing Assessment Fatigue: increased [...] by: Dee Douglas RN documented in this encounterMer[facility]09[facility] History of Present illness Narrative* Rip Rivers, - 02/23/2023 10:02 AM EDT Diagnosis: 1) Metastatic recurrence of ER positive, WV negative, HER2 positive breast cancer. 2) Cardiomyopathy. HPI: The patient is a 67 year old female who discovered a lump on the lower inner portion of her right breast in the fall of 2015. She was seen at [facility] and underwent a right sided core [...] positive, >90% Ki-67 (30-9) positive, 12% CK8 (63rkaoA25) positive CK5-6 (D5 & 1684) negative Calponin-1 (HZ482B) negative P40 (BC28) negative E-Cad (ECH-6) positive MORPHOMETRIC ANALYSIS ER (clone 6F11) 15%, weak intensity WV (clone 16/1E2) 0% Her-2Neu (clone CB11) 3+ Block B Calponin-1 (IS966F) negative P40 (BC28) negative CK8 (09rqunW71) positive INTERPRETATION: A. Right breast 1 o clock, biopsy: Invasive ductal carcinoma, grade 3/3. Positive for estrogen receptors (favorable prognostic indicator). Negative for progesterone receptors (unfavorable prognostic indicator). Positive for overexpression of KMY8dcz. B. Right breast 2 o clock, biopsy: [...] - previously performed on section of tumor ([id number] / [id number]). ER - positive (15%, weak intensity) WV - negative (0%) Her2 krista - positive (3+) Microcalcifications - present in both invasive carcinoma and non-neoplastic tissue. Clinical history - Please make reference to previous specimen ([id number]) right breast at 1 o clock and [...] left upper lobe peripherally. Discussed with Dr. Gaary. Candidate for palliative radiation. -She had her echocardiogram at [facility] but report not yet rendered. Plan: -Continue Claritin. -Enhertu will resume several weeks after radiation. -Continue metoprolol to 25 mg BID. -Continue Cozaar 100 mg daily. -Continue Lyrica 150 mg at HS. -Zometa to every 3 months (originally started for hypercalcemia). -US thyroid Mraina. -Continue follow-up with Dr. Galeano. -Previously stopped [...] which included preparing to see the patient, suwv-fq-kofe patient care, completing clinical documentation, obtaining and/or reviewing separately obtained history, performing a medically appropriate examination, counseling and educating the pat ient/family/caregiver, ordering medications, tests, or procedures, communicating with other HCPs (not separately reported), and communicating results to the patient/family/caregiver. Rip Rivers DO documented in this encounterMercy [facility]09-14-2023 Discharge summary Author Malika Garay [facility] February 17, 2023 1:45pm Note Date/Time February 17, 2023 1:33pm [facility] Medical Records Department [address] [place] [address] Discharge Summary 02/17/23 1320 MR#: [id number] Acct: [id number] Name: RENATE CHRISTIANSEN Rep #:[id number] : 1955 67 From: Malika Garay DO PCP: Dr. Mitch Mejia MD Status:ADM KELLIE Location: [place] [address] Providers Date of Admission: 02/16/23 Date of [...] who presents emergency department at [facility] on 02/17/2023 with a chief complaint [...] % (Auto) Cancelled, Lymph % (Auto) Cancelled, [place] % (Auto) Cancelled, Eos % (Auto) Cancelled, [...] Tear DropCells Cancelled, Ovalocytes Cancelled, Stomatocytes Cancelled, [place] Bodies Cancelled, [place] Cells Cancelled, Bite Cells Cancelled, Crenated Cell [...] Neut % (Auto) 58.7, Lymph % (Auto) 24.5,[place] % (Auto) 10.8 H, Eos % (Auto) 5.2 H, Baso % (Auto) 0.6, Absolute Neuts (auto) 2.7, Absolute Lymphs (auto) 1.14, Nucleated RBC % 0 02/16/23 21:05: D-Dimer Quant (PE/DVT) 0.77 H* Radiography Diagnostic Testing: Radiology Impression Chest X-Ray 02/16/23 21:20 IMPRESSION: No active disease. Electronically Signed: Jacob Dunn MD at 21:48 EDT Reading Location ID and State: 994 / [employer] Tel , Service support , Chest CT 02/16/23 22:02 IMPRESSION: 1. 8 mm noncalcified left upper lobe nodule and correlation with prior studies, follow-up CT, PET CT would be useful. 2. Sclerotic lesion of the manubrium and correlation with prior studies or bone scan may be useful. 3. Small hiatal hernia. 4. Severe levoscoliosis of the thoracolumbar spine with deformity of the chest and abdomen. Electronically Signed: Jacbo Dunn MD at 22:49 EDT Reading Location ID and State: 994 / [employer] Tel , Service support , Chest CTA 02/17/23 08:04 IMPRESSION: No [...] Self Care Charges/Coding Visit Charges Inpatient E&M: 28027 Disch Hosp 02/17/23 1345 <Electronically signed by Malika Garay DO> Cosigner Signature (if applicable): CC: Dr. Mitch Mejia MD; Dr. Malika Garay DO~ Signed [facility] Work Phone: 1(402) 734-515709-14-2023 History and physical note Author Luis Stratton [facility] February 17, 2023 9:42am Note Date/Time February 16, 2023 11:30pm [facility] Medical Records Department [address] [place] [address] H&P Exam - Hospitalist 02/16/23 2330 MR#: [id number] Acct: [id number] Name: RENATE CHRISTIANSEN Rep #:[id number] : 1955 67 From: Luis Stratton MD PCP: Dr. Mitch Mejia MD Status:ADM KELLIE Location: [place] [address] HPI - General General Date of Admission: [...] been on hold since January 13, 2023. [facility] Medical History Breast cancer metastasized to [...] Verified 11/26/22 11:36 skin rash hydrocodone [From [place]] Allergy hives and Verified 11/26/22 11:36 nausea [...] % (Auto) Cancelled, Lymph % (Auto) Cancelled, [place] % (Auto) Cancelled, Eos % (Auto) Cancelled, [...] Drop Cells Cancelled, Ovalocytes Cancelled, Stomatocytes Cancelled, [place] Bodies Cancelled, Tonya Cells Cancelled, Bite Cells [...] Neut % (Auto) 58.7, Lymph % (Auto) 24.5,[place] % (Auto) 10.8 H, Eos % (Auto) 5.2 H, Baso % (Auto) 0.6, Absolute Neuts (auto) 2.7, Absolute Lymphs (auto) 1.14, Nucleated RBC % 0 02/16/23 21:05: D-Dimer Quant (PE/DVT) 0.77 H* Radiology Impression Chest X-Ray 02/16/23 21:20 IMPRESSION: No active disease. Electronically Signed: Jacob Dunn MD at 21:48 EDT Reading Location ID and State: 994 / [employer] Tel , Service support , Chest CT 02/16/23 22:02 IMPRESSION: 1. [...] documentation, 55minutes. Charges/Coding Visit Charges Inpatient E&M: 83004 Init Hosp L3 02/17/23 0942 <Electronically signed by Luis Stratton MD> Cosigner Signature (if applicable): CC: Dr. Mitch Mejia MD; Dr. Luis Stratton MD~ Signed [facility] Work Phone: 1(332) 890-540909-14-2023 Discharge summary Author Gurvinder Dill [facility] February 17, 2023 12:01am Note Date/Time February 16, 2023 7:14pm [facility] Medical Records Department [address] [place] [address] Emergency Department Summary 02/16/23 MR#: [id number] Acct: [id number] Name: RENATE CHRISTIANSEN Rep #:[id number] : 1955 67 From: Gurvinder Dill [...] had no fever. She denies significant cough. [facility] Medical History (Updated 02/16/23 @ 23:23 [...] Verified 11/26/22 11:36 skin rash hydrocodone [From [place]] Allergy hives and Verified 11/26/22 11:36 nausea [...] arrival IV line established. Patient placed on electronic device monitor. EKG obtained showed a sinus rhythm [...] try to go home and follow-up with [facility] because they have always accessed her [...] Cancelled 58.7 Lymph % (Auto) Cancelled 24.5 [place] % (Auto) Cancelled 10.8 H Eos % [...] Drop Cells Cancelled Ovalocytes Cancelled Stomatocytes Cancelled [place] Bodies Cancelled Tonya Cells Cancelled Bite Cells [...] (Auto) Neut % (Auto) Lymph % (Auto) [place] % (Auto) Eos % (Auto) Baso % [...] Target Cells Tear Drop Cells Ovalocytes Stomatocytes [place] Bodies Tonya Cells Bite Cells Crenated Cell [...] to lung Disposition Disposition: Acute Care Hospital [facility] What to do if you have Problems For any increased pain, shortness of breath, bleeding, nausea or vomiting, chestpain, or any unexpected problems, contact your Primary Care Provider. Call [facility] ([phone]) or report to the closest Emergency Room. Call 911 if necessary. 02/17/23 0001 <Electronically signed by Gurvinder Dill DO> Cosigner Signature (if applicable): CC: Dr. Mitch Mejia MD ~ Signed [facility] Work Phone: 1(311) 976-448509-13-2023 Discharge summary Author Gurvinder [facility] February 17, 2023 12:01am Note Date/Time February 16, 2023 7:14pm [facility] Medical Records Department [address] [place] [address] Emergency Department Summary 02/16/23 MR#: [id number] Acct: [id number] Name: RENATE CHRISTIANSEN Rep #:[id number] : 1955 67 From: Gurvinder Dill [...] had no fever. She denies significant cough. [facility] Medical History (Updated 02/16/23 @ 23:[address] Gurvinder Dill DO) Breast cancer metastasized to bone Breast [...] Verified 11/26/22 11:36 skin rash hydrocodone [From [place]] Allergy hives and Verified 11/26/22 11:36 nausea [...] arrival IV line established. Patient placed on electronic device monitor. EKG obtained showed a sinus rhythm [...] try to go home and follow-up with [facility] because they have always accessed her [...] Cancelled 58.7 Lymph % (Auto) Cancelled 24.5 [place] % (Auto) Cancelled 10.8 H Eos % [...] Drop Cells Cancelled Ovalocytes Cancelled Stomatocytes Cancelled [place] Bodies Cancelled Tonya Cells Cancelled Bite Cells [...] (Auto) Neut % (Auto) Lymph % (Auto) [place] % (Auto) Eos % (Auto) Baso % [...] Target Cells Tear Drop Cells Ovalocytes Stomatocytes [place] Bodies Tonya Cells Bite Cells Crenated Cell [...] Signed: Jacob Dunn MD at 21:48 EDT Reading Location ID and State: [employer] / [employer] Tel , Service support , Chest CT 02/16/23 22:02 IMPRESSION: 1. [...] 22:49 EDT Reading Location ID and State: 994 / [employer] Tel , Service support , 1 view chest x-ray obtained interpreted [...] to lung Disposition Disposition: Acute Care Hospital [facility] What to do if you have Problems For any increased pain, shortness of breath, bleeding, nausea or vomiting, chestpain, or any unexpected problems, contact your Primary Care Provider. Call [facility] ([phone]) or report to the closest Emergency Room. Call 911 if necessary. 02/17/23 0001 <Electronically signed by Gurvinder Dill DO> Cosigner Signature (if applicable): CC: Dr. Mitch Mejia MD ~ Signed [facility] Work Phone: 1(470) 491-374009-13-2023 Miscellaneous Notes* Telephone Encounter - Rip Rivers [...] out pneumonitis from chemotherapy or PE. Carla Almonte RN * Telephone Encounter - Jazlyn Harding [...] to Nurse. Alexia Stephens documented in this encounter[facility] Nurse Note* Mady Medina RN - 02/09/2023 2:28 PM EDT Radiation Therapy - Patient Education Note PATIENT NAME: Renate Christiansen PATIENT February 09, 2023 [facility] FACILITY/LOCATION: [place] READINESS TO LEARN Cognitive Ability: Alert and [...] need for social work, van service, and cruise coordinator. Was approved? unknown Signed by: Mady Medina, RN documented in this encounterMercy Health St. [facility]-06-2023 History of Present illness Narrative* Meenu Garay MD, MD - 02/09/2023 12:00 AM EDT RENATE CHRISTIANSEN [id number] 02/09/2023 [facility] Department of Radiation Oncology Treatment Planning [...] Garay M.D. 0:52 AM documented in this encounterMer[facility] History of Present illness Narrative* Meenu Garay MD, MD - 02/09/2023 12:00 AM EDT RENATE CHRISTIANSEN [id number] 02/09/2023 [facility] Department of Radiation Oncology [facility] RADIATION ONCOLOGY SIMULATION NOTE DATE OF SIMULATION: [...] Garay M.D./hudson 0:51 AM documented in this encounterMercy Health St. [facility]08-31-2023 Nurse Note* Mady Medina RN - 02/03/2023 9:36 AM EDT Radiation Therapy - Nursing Note (Consult) PATIENT NAME: Renate Christiansen PATIENT February 03, 2023 [facility] FACILITY/LOCATION: [place] Chief Complaint: consult Reason for visit: Consult. Referring physician: Internal provider Dr Rivers Subjective Data: no complaints Additional Data Do you want to see a Stone Rubber? No Are you interested in information about fertility? No Status: Post-menopausal Stress Scale: On a scale of 0 to 10, what number best describes how much distress you have experienced in the past week?(0 being no distress and 10 being extreme distress) 10 Social work notified: Pt denied need to see dam worker at this time. SIGNED by: Mady Medina RN documented in this encounterMercy Health St. [facility]08-31-2023 History of Present illness Narrative* Meenu [...] Demerol [Meperidine* Unknown Erythromycin Unknown Latex Rash [place] [Hydrocodone-* Hives Nubain [Nalbuphine * Unknown Percocet [Oxycodone* Rash, Itching Prednisone Unknown per pt, this was given when had appendicitis and received multiple meds and she developed a rash and they had given her prednisone but at some point it was thought that it wasn't working and maybe itwas part of the problem. [place] Other: See Comments Migraine headache Sulfa (Sulfonamide [...] that other personnel such as radiation therapists, sql server dba, and physicists will partici lora in planning and delivery of radiation treatment. Permanent tattoo amado will be placed to aid with positioning for daily treatment and the patient consented. Patient will have a simulation procedure next week. Thank you very much for allowing us to participate in her care. Signed by: Meenu Garay MD cc: Mitch Mejia MD [address] [place] [address] Rip Rivers [address] [facility] [address] documented in this encounterMercy [facility]. [facility]08-23-2023 History of Present illness Narrative* Adriana Thomas, RT(R) - 01/26/2023 9:00 AM EDT Radiology [...] PERIPHERAL IV DATA: power port accessed by Smart Pipe SIGNED BY: RT Ashley(R) January 26, 2023 9:36 AM documented in this encounterMercy Health St. [facility]08-09-2023 History of Present illness Narrative* Rip Rivers DO - 01/12/2023 10:25 AM EDT Diagnosis: 1) Metastatic recurrence of ER positive, WV negative, HER2 positive breast cancer. 2) Cardiomyopathy. HPI: The patient is a 67 year old female who discovered a lump on the lower inner portion of her right breast in the fall of 2015. She was seen at [facility] and underwent a right sided core [...] positive, >90% Ki-67 (30-9) positive, 12% CK8 (32ijqiC05) positive CK5-6 (D5 & 1684) negative Calponin-1 (NQ369W) negative P40 (BC28) negative E-Cad (ECH-6) positive MORPHOMETRIC ANALYSIS ER (clone 6F11) 15%, weak intensity WV (clone 16/1E2) 0% Her-2Neu (clone CB11) 3+ Block B Calponin-1 (VR315T) negative P40 (BC28) negative CK8 (34hubpF09) positive INTERPRETATION: A. Right breast 1 o clock, biopsy: Invasive ductal carcinoma, grade 3/3. Positive for estrogen receptors (favorable prognostic indicator). Negative for progesterone receptors (unfavorable prognostic indicator). Positive for overexpression of XQS4gao. B. Right breast 2 o clock, biopsy: [...] - previously performed on section of tumor ([id number] / [id number]). ER - positive (15%, weak intensity) WV - negative (0%) Her2 krista - positive (3+) Microcalcifications - present in both invasive carcinoma and non-neoplastic tissue. Clinical history - Please make reference to previous specimen ([id number]) right breast at 1 o clock and [...] CARDIOVASCULAR: Rhythm is regular. BREAST: acted as spinner frame. 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 ABDOMEN: The abdomen is nondistended. Extremities: No swelling or edema. SKIN: Continued resolution of subcutaneous metastasis near Xyvoid. 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 Absent patellar DTRs. [...] Lymph 1.00 - 4.00 k/uL 1.23 1.14 [place]% % 10.3 12.7 Abs [place] <0.87 k/uL 0.37 0.43 Eosin% % 7.8 [...] which included preparing to see the patient, [id number] patient care, completing clinical documentation, obtaining and/or reviewing separately obtained history, performing a medically appropriate examination, counseling and educating the pat ient/family/caregiver, ordering medications, tests, or procedures, communicating with other HCPs (not separately reported), and communicating results to the patient/family/caregiver. Rip Rivers DO documented in this encounterMercy Health St. [facility]07-27-2023 Miscellaneous Notes* Telephone Encounter - Ranjana Burgos RN - 12/30/2022 12:22 PM EDT CR 1Y21 IRB: [id number] Real World Treatment Experience of Patients with Breast, Lung, or GI Canceror Multiple Myeloma Using Remote Symptom Monitoring Informed Consent signed on: November STUDY ID #: [id number] Patient has not reached their 12-week minimum survey participation time point as of December 30, 2022. The patient was called and stated they do not want to continue completing IESA6X70 surveys. The patient knows to follow provider's treatment plan and to discontinue the [id number] surveys. Patient understands to call the office sooner if needed and has my contact information for any additional questions regarding the study. Ranjana Burgos RN 12:22 PM December 30, 2022 documented in [address]Mer[facility]07-19-2023 History of Past illness Narrative* Problem Noted Date Diagnosed Date Resolved Date Platelets decreased 12/22/2022 06/08/19 24 documented as of this encounter (statuses as of 07/20/2023) [facility] History of Past illness Narrative* Problem Noted Date Diagnosed Date Resolved Date Platelets decreased 12/22/2022 06/08/19 24 documented as of this encounter (statuses as of 07/20/2023) [address]19-2023 History of Past illness Narrative* Problem Noted Date Diagnosed Date Resolved Date Platelets decreased 12/22/2022 06/08/19 24 documented as of this encounter (statuses as of 07/21/2023) [address]19-2023 History of Past illness Narrative* Problem Noted Date Diagnosed Date Resolved Date Platelets decreased 12/22/2022 06/08/19 24 documented as of this encounter (statuses as of 08/04/2023) [address]19-2023 History of Past illness Narrative* Problem Noted Date Diagnosed Date Resolved Date Platelets decreased 12/22/2022 06/08/19 24 documented as of this encounter (statuses as of 08/04/2023) [address]19-2023 History of Past illness Narrative* Problem Noted Date Diagnosed Date Resolved Date Platelets decreased 12/22/2022 06/08/19 24 documented as of this encounter (statuses as of 08/10/2023) [address]19-2023 History of Past illness Narrative* Problem Noted Date Diagnosed Date Resolved Date Platelets decreased 12/22/2022 06/08/19 24 documented as of this encounter (statuses as of 08/10/2023) [address]19-2023 History of Past illness Narrative* Problem Noted Date Diagnosed Date Resolved Date Platelets decreased 12/22/2022 06/08/19 24 documented as of this encounter (statuses as of 08/10/2023) [address]19-2023 History of Past illness Narrative* Problem Noted Date Diagnosed Date Resolved Date Platelets decreased 12/22/2022 06/08/19 24 documented as of this encounter (statuses as of 08/11/2023) [address]19-2023 History of Past illness Narrative* Problem Noted Date Diagnosed Date Resolved Date Platelets decreased 12/22/2022 06/08/19 24 documented as of this encounter (statuses as of 08/23/2023) [address]19-2023 History of Past illness Narrative* Problem Noted Date Diagnosed Date Resolved Date Platelets decreased 12/22/2022 06/08/19 24 documented as of this encounter (statuses as of 08/23/2023) [address]19-2023 History of Past illness Narrative* Problem Noted Date Diagnosed Date Resolved Date Platelets decreased 12/22/2022 06/08/19 24 documented as of this encounter (statuses as of 08/25/2023) [address]19-2023 History of Past illness Narrative* Problem Noted Date Diagnosed Date Resolved Date Platelets decreased 12/22/2022 06/08/19 24 documented as of this encounter (statuses as of 08/26/2023) [address]19-2023 History of Past illness Narrative* Problem Noted Date Diagnosed Date Resolved Date Platelets decreased 12/22/2022 06/08/19 24 documented as of this encounter (statuses as of 08/30/2023) [address]19-2023 History of Past illness Narrative* Problem Noted Date Diagnosed Date Resolved Date Platelets decreased 12/22/2022 06/08/19 24 documented as of this encounter (statuses as of 08/30/2023) [address]19-2023 History of Past illness Narrative* Problem Noted Date Diagnosed Date Resolved Date Platelets decreased 12/22/2022 06/08/19 24 documented as of this encounter (statuses as of 08/30/2023) [address]19-2023 History of Past illness Narrative* Problem Noted Date Diagnosed Date Resolved Date Platelets decreased 12/22/2022 06/08/19 24 documented as of this encounter (statuses as of 09/06/2023) [address]19-2023 History of Past illness Narrative* Problem Noted Date Diagnosed Date Resolved Date Platelets decreased 12/22/2022 06/08/19 24 documented as of this encounter (statuses as of 09/09/2023) [address]19-2023 History of Past illness Narrative* Problem Noted Date Diagnosed Date Resolved Date Platelets decreased 12/22/2022 06/08/19 24 documented as of this encounter (statuses as of 09/14/2023) [address]19-2023 History of Past illness Narrative* Problem Noted Date Diagnosed Date Resolved Date Platelets decreased 12/22/2022 06/08/19 24 documented as of this encounter (statuses as of 09/16/2023) [address]19-2023 History of Past illness Narrative* Problem Noted Date Diagnosed Date Resolved Date Platelets decreased 12/22/2022 06/08/19 24 documented as of this encounter (statuses as of 09/17/2023) [facility] of Past illness Narrative* Problem Noted Date Diagnosed Date Resolved Date Platelets decreased 12/22/2022 06/08/19 24 documented as of this encounter (statuses as of 09/21/2023) [facility] of Past illness Narrative* Problem Noted Date Diagnosed Date Resolved Date Platelets decreased 12/22/2022 06/08/19 24 documented as of this encounter (statuses as of 09/21/2023) [facility] of Past illness Narrative* Problem Noted Date Diagnosed Date Resolved Date Platelets decreased 12/22/2022 06/08/19 24 documented as of this encounter (statuses as of 09/23/2023) [facility] History of Present illness Narrative* Rip Rivers, - 12/22/2022 10:46 AM EDT Diagnosis: 1) Metastatic recurrence of ER positive, WV negative, HER2 positive breast cancer. 2) Cardiomyopathy. HPI: The patient is a 67 year old female who discovered a lump on the lower inner portion of her right breast in the fall of 2015. She was seen at [facility] and underwent a right sided core biopsy on 02/16/2016 by interventional radiology. The tissue specimen demonstrated invasive ductal carcinoma, [place] grade 2. ERpositive (90%, very weak) and [...] positive, >90% Ki-67 (30-9) positive, 12% CK8 (30hecuA09) positive CK5-6 (D5 & 1684) negative Calponin-1 (LP699F) negative P40 (BC28) negative E-Cad (ECH-6) positive MORPHOMETRIC ANALYSIS ER (clone 6F11) 15%, weak intensity WV (clone 16/1E2) 0% Her-2Neu (clone CB11) 3+ Block B Calponin-1 (VO476A) negative P40 (BC28) negative CK8 (22pgaoS01) positive INTERPRETATION: A. Right breast 1 o clock, biopsy: Invasive ductal carcinoma, grade 3/3. Positive for estrogen receptors (favorable prognostic indicator). Negative for progesterone receptors (unfavorable prognostic indicator). Positive for overexpression of MPM7iwk. B. Right breast 2 o clock, biopsy: [...] - previously performed on section of tumor ([id number] / [id number]). ER - positive (15%, weak intensity) WV - negative (0%) Her2 krista - positive (3+) Microcalcifications - present in both invasive carcinoma and non-neoplastic tissue. Clinical history - Please make reference to previous specimen ([id number]) right breast at 1 o clock and [...] CARDIOVASCULAR: Rhythm is regular. BREAST: acted as spinner frame. 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 ABDOMEN: The abdomen is nondistended. Extremities: No swelling or edema. SKIN: Resolution of subcutaneous metastasis near Xyvoid. 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 Absent patellar DTRs. [...] 1.00 - 4.00 k/uL 1.17 1.30 1.23 [place]% % 12.5 10.4 10.3 Abs [place] <0.87 k/uL 0.46 0.43 0.37 Eosin% % [...] which included preparing to see the patient, [id number] patient care, completing clinical documentation, obtaining and/or reviewing separately obtained history, performing a medically appropriate examination, counseling and educating the pat ient/family/caregiver, ordering medications, tests, or procedures, communicating with other HCPs (not separately reported), and communicating results to the patient/family/caregiver. Rip Rivers DO documented in this encounterMercy Health [facility]06-28-2023 History of Present illness Narrative* Rip Rivers DO - 12/01/2022 8:38 AM EDT Diagnosis: 1) Metastatic recurrence of ER positive, WV negative, HER2 positive breast cancer. 2) Cardiomyopathy. HPI: The patient is a 67 year old female who discovered a lump on the lower inner portion of her right breast in the fall of 2015. She was seen at [facility] and underwent a right sided core biopsy on 02/16/2016 by interventional radiology. The tissue specimen demonstrated invasive ductal carcinoma, [place] grade 2. ERpositive (90%, very weak) and [...] positive, >90% Ki-67 (30-9) positive, 12% CK8 (84pnpqT75) positive CK5-6 (D5 & 1684) negative Calponin-1 (KH008Y) negative P40 (BC28) negative E-Cad (ECH-6) positive MORPHOMETRIC ANALYSIS ER (clone 6F11) 15%, weak intensity WV (clone 16/1E2) 0% Her-2Neu (clone CB11) 3+ Block B Calponin-1 (OJ811V) negative P40 (BC28) negative CK8 (30cpkkW18) positive INTERPRETATION: A. Right breast 1 o clock, biopsy: Invasive ductal carcinoma, grade 3/3. Positive for estrogen receptors (favorable prognostic indicator). Negative for progesterone receptors (unfavorable prognostic indicator). Positive for overexpression of XMB9uuj. B. Right breast 2 o clock, biopsy: [...] ductal carcinoma (no special type) Histologic Grade ([place] grade): Glandular/tubular differentiation - score 3 Nuclear [...] - previously performed on section of tumor ([id number] / BT30-6071). ER - positive (15%, weak intensity) WV - negative (0%) Her2 krista - positive (3+) Microcalcifications - present in both invasive carcinoma and non-neoplastic tissue. Clinical history - Please make reference to previous specimen ([id number]) right breast at 1 o clock and [...] CARDIOVASCULAR: Rhythm is regular. BREAST: acted as spinner frame. 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 ABDOMEN: The abdomen is nondistended. Extremities: No swelling or edema. SKIN: Resolution of subcutaneous metastasis near Xyvoid. 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 Absent patellar DTRs. [...] Abs Lymph 1.00 - 4.00 k/uL 1.30 [place]% % 10.4 Abs [place] <0.87 k/uL 0.43 Eosin% % 6.8 Abs [...] which included preparing to see the patient, [id number] patient care, completing clinical documentation, obtaining and/or reviewing separately obtained history, performing a medically appropriate examination, counseling and educating the pat ient/family/caregiver, ordering medications, tests, or procedures, communicating with other HCPs (not separately reported), and communicating results to the patient/family/caregiver. Rip Rivers DO documented in this encounterMer[facility] Health [facility]06-28-[facility]23 History of Present illness Narrative* Ana Cristina Bejarano RN - 12/01/2022 7:51 AM EDT Patient is here for IVAD port flush/blood draw per Nursing [facility] protocol. IVAD is located in left upper [...] Patient tolerated procedure well. documented in this encounterMercy Health St. [facility]06-08-2023 History of Present illness Narrative* Ranjana [...] willingly signed by patient and approved study store team leader on November at 8:45 am . Patient [...] of age or older Yes Subject understands Cymro Yes Subject may be any stage and [...] following: Electronic Survey via subject's personal device Brewery Representative(s): Chance Espinoza MD [facility] [address] [place] [address] [email or web address] Unix Architect: Eileen Null Lead Pager: [email or web address] [...] AM November 11, 2022 documented in [address] encounterMercy Health [facility]. [facility]06-07-2023 History of Present illness Narrative* Prince Blunt, RT(R) - 11/10/2022 10:40 AM EDT Radiology [...] 10, 2022 11:12 AM documented in this encounterMercy Health St. [facility]06-07-2023 History of Present illness Narrative* Rip Rivers, - 11/10/2022 10:24 AM EDT Diagnosis: 1) Metastatic recurrence of ER positive, WV negative, HER2 positive breast cancer. 2) Cardiomyopathy. HPI: The patient is a 67 year old female who discovered a lump on the lower inner portion of her right breast in the fall of 2015. She was seen at [facility] and underwent a right sided core biopsy on 02/16/2016 by interventional radiology. The tissue specimen demonstrated invasive ductal carcinoma, [place] grade 2. ERpositive (90%, very weak) and [...] positive, >90% Ki-67 (30-9) positive, 12% CK8 (76jhxjA32) positive CK5-6 (D5 & 1684) negative Calponin-1 (PM496G) negative P40 (BC28) negative E-Cad (ECH-6) positive MORPHOMETRIC ANALYSIS ER (clone 6F11) 15%, weak intensity WV (clone 16/1E2) 0% Her-2Neu (clone CB11) 3+ Block B Calponin-1 (TO437A) negative P40 (BC28) negative CK8 (84wnppO01) positive INTERPRETATION: A. Right breast 1 o clock, biopsy: Invasive ductal carcinoma, grade 3/3. Positive for estrogen receptors (favorable prognostic indicator). Negative for progesterone receptors (unfavorable prognostic indicator). Positive for overexpression of DEW5fql. B. Right breast 2 o clock, biopsy: [...] - previously performed on section of tumor ([id number] / [id number]). ER - positive (15%, weak intensity) WV - negative (0%) Her2 krista - positive (3+) Microcalcifications - present in both invasive carcinoma and non-neoplastic tissue. Clinical history - Please make reference to previous specimen ([id number]) right breast at 1 o clock and [...] CARDIOVASCULAR: Rhythm is regular. BREAST: acted as spinner frame. 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 ABDOMEN: The abdomen is nondistended. Extremities: No swelling or edema. SKIN: Resolution of subcutaneous metastasis near Xyvoid. 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 Absent patellar DTRs. [...] Abs Lymph 1.00 - 4.00 k/uL 1.17 [place]% % 12.5 Abs [place] <0.87 k/uL 0.46 Eosin% % 7.6 Abs [...] which included preparing to see the patient, [id number] patient care, completing clinical documentation, obtaining and/or reviewing separately obtained history, performing a medically appropriate examination, counseling and educating the pat ient/family/caregiver, ordering medications, tests, or procedures, communicating with other HCPs (not separately reported), and communicating results to the patient/family/caregiver. Rip Rivers DO documented in this encounterMercy Health St. [facility]06-07-2023 History of Present illness Narrative* Ana [...] well. Ana Velásquez RN documented in this encounterMercy Health St. [facility]06-06-2023 Miscellaneous Notes* Telephone Encounter - Chrissie Lama LPN - 11/09/2022 8:58 AM EDT Left detailed message on identified voicemail echo resulted as normal. Chrissie Lama LPN documented in this encounterMercy Health St. [facility]05-17-2023 History of Present illness Narrative* Rip Rivers DO - 10/20/2022 10:44 AM EDT Diagnosis: 1) Metastatic recurrence of ER positive, WV negative, HER2 positive breast cancer. 2) Cardiomyopathy. HPI: The patient is a 67 year old female who discovered a lump on the lower inner portion of her right breast in the fall of 2015. She was seen at [facility] and underwent a right sided core [...] positive, >90% Ki-67 (30-9) positive, 12% CK8 (45bcezI02) positive CK5-6 (D5 & 1684) negative Calponin-1 (LJ917K) negative P40 (BC28) negative E-Cad (ECH-6) positive MORPHOMETRIC ANALYSIS ER (clone 6F11) 15%, weak intensity WV (clone 16/1E2) 0% Her-2Neu (clone CB11) 3+ Block B Calponin-1 (ZN030B) negative P40 (BC28) negative CK8 (62zjonC39) positive INTERPRETATION: A. Right breast 1 o clock, biopsy: Invasive ductal carcinoma, grade 3/3. Positive for estrogen receptors (favorable prognostic indicator). Negative for progesterone receptors (unfavorable prognostic indicator). Positive for overexpression of YGN6kth. B. Right breast 2 o clock, biopsy: [...] - previously performed on section of tumor ([id number] / [id number]). ER - positive (15%, weak intensity) WV - negative (0%) Her2 krista - positive (3+) Microcalcifications - present in both invasive carcinoma and non-neoplastic tissue. Clinical history - Please make reference to previous specimen ([id number]) right breast at 1 o clock and [...] (98.4 F), weight 86.2 kg (190 lb), XvQ636 %. Well-appearing and in no acute distress. EYES: Sclerae are anicteric bilaterally. LYMPHATIC: There is no palpable cervical, supraclavicular, axillary adenopathy. RESPIRATORY: Normal vesicular breath sounds in all barnes. No rales, wheezes or rhonchi. CARDIOVASCULAR: Rhythm is regular. BREAST: acted as spinner frame. 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 ABDOMEN: The abdomen is nondistended. Extremities: No swelling or edema. SKIN: Resolution of subcutaneous metastasis near Xyvoid. 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 Absent patellar DTRs. [...] Abs Lymph 1.00 - 4.00 k/uL 1.15 [place]% % 10.6 Abs [place] <0.87 k/uL 0.41 Eosin% % 6.5 Abs [...] read yet). -Due for echo--will order at [facility]. -Continue follow-up with Dr. Galeano. -Previously stopped [...] which included preparing to see the patient, hvkc-da-mpiy patient care, completing clinical documentation, obtaining and/or reviewing separately obtained history, performing a medically appropriate examination, counseling and educating the pat ient/family/caregiver, ordering medications, tests, or procedures, communicating with other HCPs (not separately reported), and communicating results to the patient/family/caregiver. Rip Rivers DO documented in this encounterMercy Health St. [facility]05-15-2023 History of Present illness Narrative* Adriana [...] PERIPHERAL IV DATA: power port accessed by Smart Pipe SIGNED BY: RT Ashley(R) October 18, 2022 2:35 PM documented in this encounterMercy Health St. [facility]04-26-2023 Miscellaneous Notes* Telephone Encounter - Jazlyn Mehdi RAMÍREZ - 09/29/2022 8:06 AM EDT Patient has been identified by name and date of : Yes Requested Prescriptions Pending Prescriptions Disp Refills lidocaine-prilocaine (EMLA) 2.5-2.5 % cream 15 g 3 Sig: Apply to affected area as needed. RX INSTRUCTIONS: Patient aware RX will be sent to pharmacy. No need to notify patient. Jazlyn Harding LPN documented in this encounterMercy Health St. [facility]04-19-2023 History of Present illness Narrative* Morena [...] 22, 2022 3:11 PM documented in this encounterMercy Health St. [facility]04-05-2023 History of Present illness Narrative* Rip Rivers DO - 09/08/2022 11:06 AM EDT Diagnosis: 1) Metastatic recurrence of ER positive, WV negative, HER2 positive breast cancer. 2) Cardiomyopathy. HPI: The patient is a 66 year old female who discovered a lump on the lower inner portion of her right breast in the fall of 2015. She was seen at [facility] and underwent a right sided core biopsy on 02/16/2016 by interventional radiology. The tissue specimen demonstrated invasive ductal carcinoma, [place] grade 2. ERpositive (90%, very weak) and [...] positive, >90% Ki-67 (30-9) positive, 12% CK8 (93ademR07) positive CK5-6 (D5 & 1684) negative Calponin-1 (XC756Z) negative P40 (BC28) negative E-Cad (ECH-6) positive MORPHOMETRIC ANALYSIS ER (clone 6F11) 15%, weak intensity WV (clone 16/1E2) 0% Her-2Neu (clone CB11) 3+ Block B Calponin-1 (SR317S) negative P40 (BC28) negative CK8 (12zpwlT32) positive INTERPRETATION: A. Right breast 1 o clock, biopsy: Invasive ductal carcinoma, grade 3/3. Positive for estrogen receptors (favorable prognostic indicator). Negative for progesterone receptors (unfavorable prognostic indicator). Positive for overexpression of RZH2efv. B. Right breast 2 o clock, biopsy: [...] ductal carcinoma (no special type) Histologic Grade ([place] grade): Glandular/tubular differentiation - score 3 Nuclear [...] - previously performed on section of tumor ([id number] / [id number]). ER - positive (15%, weak intensity) WV - negative (0%) Her2 krista - positive (3+) Microcalcifications - present in both invasive carcinoma and non-neoplastic tissue. Clinical history - Please make reference to previous specimen ([id number]) right breast at 1 o clock and [...] CARDIOVASCULAR: Rhythm is regular. BREAST: acted as spinner frame. 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 Left breast--no mass appreciated. ABDOMEN: The abdomen is nondistended. Extremities: No swelling or edema. SKIN: Resolution of subcutaneous metastasis near Xyvoid. 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 Absent patellar DTRs. [...] Lymph 1.00 - 4.00 k/uL 1.22 1.24 [place]% % 13.4 12.9 Abs [place] <0.87 k/uL 0.50 0.54 Eosin% % 5.4 [...] which included preparing to see the patient, woac-ud-bdat patient care, completing clinical documentation, obtaining and/or reviewing separately obtained history, performing a medically appropriate examination, counseling and educating the pat ient/family/caregiver, ordering medications, tests, or procedures, and communicating results to thepatient/family/caregiver. Rip Rivers DO documented in this encounterMercy Health St. [facility]03-23-2023 Miscellaneous Notes* Telephone Encounter - Tiffany Hager - 08/26/2022 9:45 AM EDT Patient informed. * Telephone Encounter - Alexia Stephens - 08/26/2022 9:40 AM EDT LM for patient to return call to schedule. When patient calls, please transfer to [facility] at [phone] to schedule diagnostic mammogram. Once transferred, please [...] schedule. Rip Rivers DO documented in this encounterMercy Health St. [facility]03-21-2023 Miscellaneous Notes* Letter - Mammography Coordinator - 08/24/2022 3:06 PM EDT August 25, 2022 PID: [id number] Renate Christiansen [address] [place] [address] Dear Ms. Christiansen, Your recent breast imaging [...] who ordered/prescribed your screening mammogram: Please call [phone] or [phone] to schedule an appointment for your additional [...] and reports are [facility] as part of your permanent medical record, and are available for your continuing care. Thank you for allowing us to help in meeting your health care needs. Sincerely, Dr. Pablo Interpreting Radiologist [facility] (Additional imaging) documented in this encounterMercy Health St. [facility]03-20-2023 History of Present illness Narrative* Annamaria Gonzales [...] PERIPHERAL IV DATA: Not applicable SIGNED BY: Oswald Sanchez August 23, 2022 1:56 PM documented in this encounterMercy Health St. [facility]03-15-2023 History of Present illness Narrative* Rip Rivers DO - 08/18/2022 10:47 AM EDT Diagnosis: 1) Metastatic recurrence of ER positive, WV negative, HER2 positive breast cancer. 2) Cardiomyopathy. HPI: The patient is a 66 year old female who discovered a lump on the lower inner portion of her right breast in the fall of 2015. She was seen at [facility] and underwent a right sided core [...] positive, >90% Ki-67 (30-9) positive, 12% CK8 (58efchT01) positive CK5-6 (D5 & 1684) negative Calponin-1 (NA855P) negative P40 (BC28) negative E-Cad (ECH-6) positive MORPHOMETRIC ANALYSIS ER (clone 6F11) 15%, weak intensity WV (clone 16/1E2) 0% Her-2Neu (clone CB11) 3+ Block B Calponin-1 (CM717P) negative P40 (BC28) negative CK8 (99llgmU24) positive INTERPRETATION: A. Right breast 1 o clock, biopsy: Invasive ductal carcinoma, grade 3/3. Positive for estrogen receptors (favorable prognostic indicator). Negative for progesterone receptors (unfavorable prognostic indicator). Positive for overexpression of OYQ9ddi. B. Right breast 2 o clock, biopsy: [...] ductal carcinoma (no special type) Histologic Grade ([place] grade): Glandular/tubular differentiation - score 3 Nuclear [...] - previously performed on section of tumor ([id number] / [id number]). ER - positive (15%, weak intensity) WV - negative (0%) Her2 krista - positive (3+) Microcalcifications - present in both invasive carcinoma and non-neoplastic tissue. Clinical history - Please make reference to previous specimen ([id number]) right breast at 1 o clock and [...] CARDIOVASCULAR: Rhythm is regular. BREAST: acted as spinner frame. 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 ABDOMEN: The abdomen is nondistended. Extremities: No swelling or edema. SKIN: Resolution of subcutaneous metastasis near Xyvoid. 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 Absent patellar DTRs. [...] 1.00 - 4.00 k/uL 1.55 1.18 1.22 [place]% % 10.3 10.2 13.4 Abs [place] <0.87 k/uL 0.45 0.37 0.50 Eosin% % [...] Reviewed most recent echocardiogram results done at [facility]--scanned. No change from previous. EF normal. - [...] which included preparing to see the patient, ghgu-sj-nqfh patient care, completing clinical documentation, obtaining and/or reviewing separately obtained history, performing a medically appropriate examination, ordering medications, tests, or procedures, and communicating results to the patient/family/caregiver. Rip Rivers DO documented in this encounterMercy Health St. [facility]02-24-2023 Miscellaneous Notes* Telephone Encounter - Alexia [...] cycles. Rip Rivers DO documented in this encounterMercy Health St. [facility]02-23-2023 History of Present illness Narrative* Caity Cote APRN.CLIENT REPORTING ASSOCIATE - 07/29/2022 9:09 AM EST Chief Complaint Patient presents with: Established Patient HPI: Renate Christiansen is a 66 year old female who presents here today for evaluation for treatment today. Per Dr. Rivers's previous note: H/o discovered a lump on the lower inner portion of her right breast in the fall of 2015. She was seen at [facility] and underwent a right sided core [...] positive, >90% Ki-67 (30-9) positive, 12% CK8 (11zejxL03) positive CK5-6 (D5 & 1684) negative Calponin-1 (QN888B) negative P40 (BC28) negative E-Cad (ECH-6) positive MORPHOMETRIC ANALYSIS ER (clone 6F11) 15%, weak intensity WV (clone 16/1E2) 0% Her-2Neu (clone CB11) 3+ Block B Calponin-1 (XX750R) negative P40 (BC28) negative CK8 (91dujyN70) positive INTERPRETATION: A. Right breast 1 o clock, biopsy: Invasive ductal carcinoma, grade 3/3. Positive for estrogen receptors (favorable prognostic indicator). Negative for progesterone receptors (unfavorable prognostic indicator). Positive for overexpression of RWX6qjz. B. Right breast 2 o clock, biopsy: [...] - previously performed on section of tumor ([id number] / [id number]). ER - positive (15%, weak intensity) WV - negative (0%) Her2 krista - positive (3+) Microcalcifications - present in both invasive carcinoma and non-neoplastic tissue. Clinical history - Please make reference to previous specimen ([id number]) right breast at 1 o clock and [...] 1.00 - 4.00 k/uL 1.34 1.55 1.18 [place]% % 9.7 10.3 10.2 Abs [place] <0.87 k/uL 0.51 0.45 0.37 Eosin% % [...] visit. Caity Cote APRN.ALESSANDRO documented in this encounterMercy Health St. [facility]02-23-2023 History of Present illness Narrative* Rosemary Romero RN - 07/29/2022 8:48 AM EST . documented in this encounterMercy Health St. [facility]02-21-2023 History of Present illness Narrative* Adriana [...] PERIPHERAL IV DATA: power port accessed by Smart Pipe SIGNED BY: RT Ashley(R) July 27, 2022 3:22 PM documented in this encounterMercy Health St. [facility]01-31-2023 History of Present illness Narrative* Rip Rivers DO - 07/06/2022 8:47 AM EST Diagnosis: 1) Metastatic recurrence of ER positive, WV negative, HER2 positive breast cancer. 2) Cardiomyopathy. HPI: The patient is a 66 year old female who discovered a lump on the lower inner portion of her right breast in the fall of 2015. She was seen at [facility] and underwent a right sided core biopsy on 02/16/2016 by interventional radiology. The tissue specimen demonstrated invasive ductal carcinoma, [place] grade 2. ERpositive (90%, very weak) and [...] positive, >90% Ki-67 (30-9) positive, 12% CK8 (74ujgnO69) positive CK5-6 (D5 & 1684) negative Calponin-1 (AN601I) negative P40 (BC28) negative E-Cad (ECH-6) positive MORPHOMETRIC ANALYSIS ER (clone 6F11) 15%, weak intensity WV (clone 16/1E2) 0% Her-2Neu (clone CB11) 3+ Block B Calponin-1 (JM463R) negative P40 (BC28) negative CK8 (92angyU72) positive INTERPRETATION: A. Right breast 1 o clock, biopsy: Invasive ductal carcinoma, grade 3/3. Positive for estrogen receptors (favorable prognostic indicator). Negative for progesterone receptors (unfavorable prognostic indicator). Positive for overexpression of PWC0kkk. B. Right breast 2 o clock, biopsy: [...] ductal carcinoma (no special type) Histologic Grade ([place] grade): Glandular/tubular differentiation - score 3 Nuclear [...] - previously performed on section of tumor ([id number] / PH21-1458). ER - positive (15%, weak intensity) WV - negative (0%) Her2 krista - positive (3+) Microcalcifications - present in both invasive carcinoma and non-neoplastic tissue. Clinical history - Please make reference to previous specimen ([id number]) right breast at 1 o clock and [...] CARDIOVASCULAR: Rhythm is regular. BREAST: acted as spinner frame. 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 ABDOMEN: The abdomen is nondistended. Extremities: No swelling or edema. SKIN: Resolution of subcutaneous metastasis near Xyvoid. 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 Absent patellar DTRs. [...] Abs Lymph 1.00 - 4.00 k/uL 1.55 [place]% % 10.3 Abs [place] <0.87 k/uL 0.45 Eosin% % 5.5 Abs [...] Reviewed most recent echocardiogram results done at [facility]--scanned. No change from previous. EF normal. Plan: [...] care. Rip Rivers DO documented in this encounterMercy Health St. [facility]01-31-2023 History of Present illness Narrative* Nicolle Funez RN - 07/06/2022 7:24 AM EST Patient is here for IVAD port flush/blood draw per Nursing [facility] protocol. IVAD is located in left upper [...] Patient tolerated procedure well. documented in this encounterMercy Health St. [facility]01-10-2023 History of Present illness Narrative* Caity CoteEREN.CLIENT REPORTING ASSOCIATE - 06/15/2022 8:22 AM EST Chief Complaint Patient presents with: Established Patient HPI: Renate Christiansen is a 66 year old female who presents here today for evaluation for treatment on . Per Dr. Rivers's previous note: H/o pt. discovered a lump on the lower inner portion of her right breast in the fall of 2015. She was seen at [facility] and underwent a right sided core [...] positive, >90% Ki-67 (30-9) positive, 12% CK8 (74pawgE93) positive CK5-6 (D5 & 1684) negative Calponin-1 (MZ914P) negative P40 (BC28) negative E-Cad (ECH-6) positive MORPHOMETRIC ANALYSIS ER (clone 6F11) 15%, weak intensity WV (clone 16/1E2) 0% Her-2Neu (clone CB11) 3+ Block B Calponin-1 (BM154B) negative P40 (BC28) negative CK8 (73dectM48) positive INTERPRETATION: A. Right breast 1 o clock, biopsy: Invasive ductal carcinoma, grade 3/3. Positive for estrogen receptors (favorable prognostic indicator). Negative for progesterone receptors (unfavorable prognostic indicator). Positive for overexpression of DEO4eye. B. Right breast 2 o clock, biopsy: [...] ductal carcinoma (no special type) Histologic Grade ([place] grade): Glandular/tubular differentiation - score 3 Nuclear [...] - previously performed on section of tumor ([id number] / ME34-1130). ER - positive (15%, weak intensity) WV - negative (0%) Her2 krista - positive (3+) Microcalcifications - present in both invasive carcinoma and non-neoplastic tissue. Clinical history - Please make reference to previous specimen ([id number]) right breast at 1 o clock and [...] of Jun. Pt. has this done at [facility]. - Follow up with Dr. Rivers as scheduled. - Pt. aware to call office with any questions/concerns. The patient indicates understanding of these issues and agrees with the plan. All documentation from previous visit of 05/25/22-Dr. Rivers was copied and pasted, documentation has been reviewed and edited as necessary for today's visit. Caity Cote APRN.ALESSANDRO documented in this encounterMercy Health St. [facility]12-28-2022 Miscellaneous Notes* Telephone Encounter - Jazlyn Harding LPN - 06/02/2022 4:23 PM EST Letter was dictated under Dr. Rivers's name ( he is out of office until 06/08/2022). Patient's current handicap placard does not until 08/11/2022. Will send [employer] message with above information. Jazlyn Harding LPN [...] Please assist. Alexia Stephens documented in this encounterMercy Health St. [facility]12-22-2022 History of Present illness Narrative* Lexie Hartley RN - 05/27/2022 11:00 AM EST No changes to assessment from 05/25/22. Lexie Hartley RN documented in this encounterMercy Health St. [facility]12-20-2022 Miscellaneous Notes* Telephone Encounter - Delaney Cast - 05/25/2022 2:30 PM EST Patient returned call and given message below * Telephone Encounter - Jazlyn Harding LPN - 05/25/2022 1:13 PM EST Message left for patient to contact office. [employer] message also sent. Jazlyn Harding LPN * Telephone Encounter - Rip Jonh DO Silvestre - 05/25/2022 10:36 AM EST Her potassium is running a little low. Keeping optimal potassium levels is important for her heart.Please advise her to start prescription potassium supplement. Rip Rivers DO documented in this encounterMercy Health St. [facility]12-20-2022 History of Present illness Narrative* Rip Rivers DO - 05/25/2022 8:13 AM EST Diagnosis: 1) Metastatic recurrence of ER positive, WV negative, HER2 positive breast cancer. 2) Cardiomyopathy. HPI: The patient is a 66 year old female who discovered a lump on the lower inner portion of her right breast in the fall of 2015. She was seen at [facility] and underwent a right sided core biopsy on 02/16/2016 by interventional radiology. The tissue specimen demonstrated invasive ductal carcinoma, [place] grade 2. ERpositive (90%, very weak) and [...] positive, >90% Ki-67 (30-9) positive, 12% CK8 (65uwjqZ91) positive CK5-6 (D5 & 1684) negative Calponin-1 (ZF180Z) negative P40 (BC28) negative E-Cad (ECH-6) positive MORPHOMETRIC ANALYSIS ER (clone 6F11) 15%, weak intensity WV (clone 16/1E2) 0% Her-2Neu (clone CB11) 3+ Block B Calponin-1 (MI847P) negative P40 (BC28) negative CK8 (05fblcU42) positive INTERPRETATION: A. Right breast 1 o clock, biopsy: Invasive ductal carcinoma, grade 3/3. Positive for estrogen receptors (favorable prognostic indicator). Negative for progesterone receptors (unfavorable prognostic indicator). Positive for overexpression of NGW2grl. B. Right breast 2 o clock, biopsy: [...] - previously performed on section of tumor ([id number] / [id number]). ER - positive (15%, weak intensity) WV - negative (0%) Her2 krista - positive (3+) Microcalcifications - present in both invasive carcinoma and non-neoplastic tissue. Clinical history - Please make reference to previous specimen ([id number]) right breast at 1 o clock and [...] Resolution of subcutaneous metastasis near Xyvoid. 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 Absent patellar DTRs. [...] Abs Lymph 1.00 - 4.00 k/uL 1.32 [place]% % 11.2 Abs [place] <0.87 k/uL 0.53 Eosin% % 5.1 Abs [...] medications and test results and coordinating care. iRp Rivers DO documented in this encounterMercy Health [facility]12-19-2022 Miscellaneous Notes* Telephone Encounter - Ami [...] 4:17 PM EST . documented in this encounterMercy Health St. [facility]11-21-2022 History of Present illness Narrative* Adriana Thomas [...] PERIPHERAL IV DATA: power port accessed by Smart Pipe SIGNED BY: RT Ashley(R) April 26, 2022 4:15 PM documented in this encounterMercy Health St. [facility]11-14-2022 Miscellaneous Notes* Telephone Encounter - Jazlyn Harding LPN - 04/19/2022 12:57 PM EST All pages were faxed twice now. Jazlyn Harding LPN * Telephone Encounter - Tiffany Guerrero Pss - 04/19/2022 12:51 PM EST [facility] called stating page 2 is needed for Echo order. They state they need a doc signature. * Telephone Encounter - Jazlyn Harding LPN - 04/19/2022 12:37 PM EST Order faxed and patient notified. Jazlyn Harding LPN * Telephone Encounter - Kwame Guerrero - 04/19/2022 12:14 PM EST Patient is requesting ECHO order to be faxed to [facility], did not have fax number. Please call patient once faxed. documented in this encounterMercy Health St. [facility]11-11-2022 Miscellaneous Notes* Telephone Encounter - Alexia Stephens - 04/16/2022 4:46 PM EST Echo orders faxed to [facility]. All other appointments scheduled. Alexia Stephens * Telephone Encounter - Emely Rosanne - 04/14/2022 9:45 AM ESTSummary: AVS 04/14 Check out comments: - ECHO due-done at [facility]. - CT chest/abd/pelvis due. - Continue Zometa every 3 months. - Proceed as scheduled tomorrow for enhertu pending all labs. - Follow up as scheduled. - Pt. aware to call office with any questions/concerns. Pt stated she would stop at desk tomorrow to schedule the above because she forgot her phone/calendar at home documented in this encounterMercy Health St. [facility]11-10-2022 History of Present illness Narrative* Rosemary Romero RN - 04/15/2022 10:25 AM EST Assessment unchanged from 04/14/22 office visit with Jeniffer Cote CNP documented in this encounterMercy Health St. [facility]11-09-2022 History of Present illness Narrative* Caity [...] of 2015. She was seen at [facility] and underwent a right sided core [...] positive, >90% Ki-67 (30-9) positive, 12% CK8 (16dlxpP47) positive CK5-6 (D5 & 1684) negative Calponin-1 (LZ813T) negative P40 (BC28) negative E-Cad (ECH-6) positive MORPHOMETRIC ANALYSIS ER (clone 6F11) 15%, weak intensity WV (clone 16/1E2) 0% Her-2Neu (clone CB11) 3+ Block B Calponin-1 (PY464E) negative P40 (BC28) negative CK8 (80thmvR42) positive INTERPRETATION: A. Right breast 1 o clock, biopsy: Invasive ductal carcinoma, grade 3/3. Positive for estrogen receptors (favorable prognostic indicator). Negative for progesterone receptors (unfavorable prognostic indicator). Positive for overexpression of LLJ3ipv. B. Right breast 2 o clock, biopsy: [...] - previously performed on section of tumor ([id number] / [id number]). ER - positive (15%, weak intensity) WV - negative (0%) Her2 krista - positive (3+) Microcalcifications - present in both invasive carcinoma and non-neoplastic tissue. Clinical history - Please make reference to previous specimen ([id number]) right breast at 1 o clock and [...] 1.00 - 4.00 k/uL 1.59 1.26 1.47 [place]% % 11.0 12.4 11.2 Abs [place] <0.87 k/uL 0.47 0.53 0.52 Eosin% % [...] up with cardiology. - ECHO due-done at [facility]. - CT chest/abd/pelvis due. - Continue Zometa [...] visit. Caity Cote APRN.ALESSANDRO documented in this encounterMercy Health St. [facility]11-09-2022 History of Present illness Narrative* Nicolle Funez RN - 04/14/2022 7:42 AM EST Patient is here for IVAD port flush/blood draw per [facility] protocol. IVAD is located in right upper [...] Patient tolerated procedure well. documented in this encounterMercy Health St. [facility]09-26-2022 Miscellaneous Notes* Telephone Encounter - Caity [...] Out reach. Please fax Lyrica refill to: [phone] documented in [address] encounterMercy Health St. [facility]09-21-2022 History of Present illness Narrative* Caity Cote APRN.ALESSANDRO - 02/24/2022 9:32 AM EDT Chief Complaint Patient presents with: Established Patient HPI: Renate Christiansen is a 66 year old female who presents here today for evaluation for treatment tomorrow. Per Dr. Rivers's previous note: H/o pt. discovered a lump on the lower inner portion of her right breast in the fall of 2015. She was seen at [facility] and underwent a right sided core biopsy on 02/16/2016 by interventional radiology. The tissue specimen demonstrated invasive ductal carcinoma, [place] grade 2. ERpositive (90%, very weak) and [...] positive, >90% Ki-67 (30-9) positive, 12% CK8 (45tbifS64) positive CK5-6 (D5 & 1684) negative Calponin-1 (NT746M) negative P40 (BC28) negative E-Cad (ECH-6) positive MORPHOMETRIC ANALYSIS ER (clone 6F11) 15%, weak intensity WV (clone 16/1E2) 0% Her-2Neu (clone CB11) 3+ Block B Calponin-1 (OG296R) negative P40 (BC28) negative CK8 (57ofurO60) positive INTERPRETATION: A. Right breast 1 o clock, biopsy: Invasive ductal carcinoma, grade 3/3. Positive for estrogen receptors (favorable prognostic indicator). Negative for progesterone receptors (unfavorable prognostic indicator). Positive for overexpression of CCX3nbl. B. Right breast 2 o clock, biopsy: [...] ductal carcinoma (no special type) Histologic Grade ([place] grade): Glandular/tubular differentiation - score 3 Nuclear [...] - previously performed on section of tumor ([id number] / [id number]). ER - positive (15%, weak intensity) WV - negative (0%) Her2 krista - positive (3+) Microcalcifications - present in both invasive carcinoma and non-neoplastic tissue. Clinical history - Please make reference to previous specimen ([id number]) right breast at 1 o clock and [...] - 4.00 k/uL 1.22 1.17 1.50 1.59 [place]% % 11.4 5.2 11.6 11.0 Abs [place] <0.87 k/uL 0.43 0.45 0.51 0.47 Eosin% [...] visit. Caity Cote APRN.ALESSANDRO documented in this encounterMercy Health St. [facility]09-13-2022 Miscellaneous Notes* Telephone Encounter - Chrissie [...] patient. Chrissie Lama LPN documented in this encounterMercy Health St. [facility]08-31-2022 History of Present illness Narrative* Rip Rivers DO - 02/03/2022 9:50 AM EDT Diagnosis: 1) Metastatic recurrence of ER positive, WV negative, HER2 positive breast cancer. 2) Cardiomyopathy. HPI: The patient is a 66 year old female who discovered a lump on the lower inner portion of her right breast in the fall of 2015. She was seen at [facility] and underwent a right sided core biopsy on 02/16/2016 by interventional radiology. The tissue specimen demonstrated invasive ductal carcinoma, [place] grade 2. ERpositive (90%, very weak) and [...] positive, >90% Ki-67 (30-9) positive, 12% CK8 (16aaikV33) positive CK5-6 (D5 & 1684) negative Calponin-1 (DI941C) negative P40 (BC28) negative E-Cad (ECH-6) positive MORPHOMETRIC ANALYSIS ER (clone 6F11) 15%, weak intensity WV (clone 16/1E2) 0% Her-2Neu (clone CB11) 3+ Block B Calponin-1 (XA905A) negative P40 (BC28) negative CK8 (42clamJ00) positive INTERPRETATION: A. Right breast 1 o clock, biopsy: Invasive ductal carcinoma, grade 3/3. Positive for estrogen receptors (favorable prognostic indicator). Negative for progesterone receptors (unfavorable prognostic indicator). Positive for overexpression of NIG7rrh. B. Right breast 2 o clock, biopsy: [...] ductal carcinoma (no special type) Histologic Grade ([place] grade): Glandular/tubular differentiation - score 3 Nuclear [...] - previously performed on section of tumor ([id number] / [id number]). ER - positive (15%, weak intensity) WV - negative (0%) Her2 krista - positive (3+) Microcalcifications - present in both invasive carcinoma and non-neoplastic tissue. Clinical history - Please make reference to previous specimen ([id number]) right breast at 1 o clock and [...] Resolution of subcutaneous metastasis near Xyvoid. 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 Absent patellar DTRs. [...] care. Rip Rivers DO documented in this encounterMercy Health St. [facility]08-31-2022 History of Present illness Narrative* Nicolle Funez RN - 02/03/2022 7:51 AM EDT Patient is here for IVAD port flush/blood draw per [facility] protocol. IVAD is located in left upper [...] Patient tolerated procedure well. documented in this encounterMercy Health St. [facility]08-04-2022 Miscellaneous Notes* Telephone Encounter - Jazlyn Harding LPN - 01/07/2022 11:51 AM EDT New order faxed to [facility] echo lab. Jazlyn Harding LPN * Telephone [...] Crystal Irby - 01/07/2022 10:55 AM EDT [facility] echo lab is calling in regards to this pts order, please call them back at [phone] ext [phone]. Crystal Irby documented in this encounterMercy Health St. [facility]08-04-2022 History of Present illness Narrative* Adriana Guzmán, RT(R) - 01/07/2022 10:00 AM EDT Radiology Service [...] 07, 2022 2:26 PM documented in this encounterMercy Health St. [facility]08-04-2022 History of Present illness Narrative* Nicolle Funez RN - 01/07/2022 7:40 AM EDT Patient is here for IVAD port flush/blood draw per [facility] protocol. IVAD is located in right upper [...] Patient tolerated procedure well. documented in this encounterMercy Health St. [facility]07-22-2022 Miscellaneous Notes* Telephone Encounter - Karen [...] can see it? Can be reached at [phone] Thank you Leesa Cast documented in this encounterMercy Health St. [facility]07-21-2022 Miscellaneous Notes* Telephone Encounter - Williams Scott Pss - 12/24/2021 3:52 PM EDT Echo order faxed to [facility]. Patient due end of January. documented in this encounterMercy Health St. [facility]07-20-2022 History of Present illness Narrative* Caity Cote APRN.CLIENT REPORTING ASSOCIATE - 12/23/2021 9:28 AM EDT Chief Complaint Patient presents with: Established Patient HPI: Renate Christiansen is a 66 year old female who presents here today for evaluation for treatment tomorrow. Per Dr. Rivers's previous note: H/o pt. discovered a lump on the lower inner portion of her right breast in the fall of 2015. She was seen at [facility] and underwent a right sided core [...] positive, >90% Ki-67 (30-9) positive, 12% CK8 (10iyekN92) positive CK5-6 (D5 & 1684) negative Calponin-1 (NT055K) negative P40 (BC28) negative E-Cad (ECH-6) positive MORPHOMETRIC ANALYSIS ER (clone 6F11) 15%, weak intensity WV (clone 16/1E2) 0% Her-2Neu (clone CB11) 3+ Block B Calponin-1 (ME710D) negative P40 (BC28) negative CK8 (32wicpI97) positive INTERPRETATION: A. Right breast 1 o clock, biopsy: Invasive ductal carcinoma, grade 3/3. Positive for estrogen receptors (favorable prognostic indicator). Negative for progesterone receptors (unfavorable prognostic indicator). Positive for overexpression of PMQ7vgw. B. Right breast 2 o clock, biopsy: [...] ductal carcinoma (no special type) Histologic Grade ([place] grade): Glandular/tubular differentiation - score 3 Nuclear [...] - previously performed on section of tumor ([id number] / [id number]). ER positive (15%, weak intensity) WV negative (0%) Her2 krista positive (3+) Microcalcifications present in both invasive carcinoma and non-neoplastic tissue. Clinical history - Please make reference to previous specimen ([id number]) right breast at 1 o clock and [...] 1.00 - 4.00 k/uL 1.55 1.26 1.22 [place]% % 7.1 11.1 11.4 Abs [place] <0.87 k/uL 0.37 0.44 0.43 Eosin% % [...] months. - ECHO due end of January-at [facility]. - CT's early first week of January. [...] visit. Caity Cote APRN.ALESSANDRO documented in this encounterMercy Health St. [facility]06-29-2022 History of Present illness Narrative* Rip Rivers DO - 12/02/2021 11:47 AM EDT Diagnosis: 1) Metastatic recurrence of ER positive, WV negative, HER2 positive breast cancer. 2) Cardiomyopathy. HPI: The patient is a 66 year old female who discovered a lump on the lower inner portion of her right breast in the fall of 2015. She was seen at [facility] and underwent a right sided core [...] positive, >90% Ki-67 (30-9) positive, 12% CK8 (76ouadM79) positive CK5-6 (D5 & 1684) negative Calponin-1 (UB921W) negative P40 (BC28) negative E-Cad (ECH-6) positive MORPHOMETRIC ANALYSIS ER (clone 6F11) 15%, weak intensity WV (clone 16/1E2) 0% Her-2Neu (clone CB11) 3+ Block B Calponin-1 (ES376C) negative P40 (BC28) negative CK8 (47vadsG48) positive INTERPRETATION: A. Right breast 1 o clock, biopsy: Invasive ductal carcinoma, grade 3/3. Positive for estrogen receptors (favorable prognostic indicator). Negative for progesterone receptors (unfavorable prognostic indicator). Positive for overexpression of GFJ8uhb. B. Right breast 2 o clock, biopsy: [...] ductal carcinoma (no special type) Histologic Grade ([place] grade): Glandular/tubular differentiation - score 3 Nuclear [...] - previously performed on section of tumor ([id number] / [id number]). ER positive (15%, weak intensity) WV negative (0%) Her2 krista positive (3+) Microcalcifications present in both invasive carcinoma and non-neoplastic tissue. Clinical history - Please make reference to previous specimen ([id number]) right breast at 1 o clock and [...] Resolution of subcutaneous metastasis near Xyvoid. 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 Absent patellar DTRs. [...] care. Rip Rivers DO documented in this encounterMercy Health St. [facility]06-29-2022 History of Present illness Narrative* Nicolle Funez RN - 12/02/2021 7:35 AM EDT Patient is here for IVAD port flush/blood draw per [facility] protocol. IVAD is located in right upper [...] Patient tolerated procedure well. documented in this encounterMercy Health St. [facility]06-08-2022 History of Present illness Narrative* Rip Rivers, DO - 11/11/2021 10:34 AM EDT Diagnosis: 1) Metastatic recurrence of ER positive, WV negative, HER2 positive breast cancer. 2) Cardiomyopathy. HPI: The patient is a 66 year old female who discovered a lump on the lower inner portion of her right breast in the fall of 2015. She was seen at [facility] and underwent a right sided core [...] positive, >90% Ki-67 (30-9) positive, 12% CK8 (83mecdZ01) positive CK5-6 (D5 & 1684) negative Calponin-1 (QW884R) negative P40 (BC28) negative E-Cad (ECH-6) positive MORPHOMETRIC ANALYSIS ER (clone 6F11) 15%, weak intensity WV (clone 16/1E2) 0% Her-2Neu (clone CB11) 3+ Block B Calponin-1 (HV325E) negative P40 (BC28) negative CK8 (19xxbfT59) positive INTERPRETATION: A. Right breast 1 o clock, biopsy: Invasive ductal carcinoma, grade 3/3. Positive for estrogen receptors (favorable prognostic indicator). Negative for progesterone receptors (unfavorable prognostic indicator). Positive for overexpression of JYC7iav. B. Right breast 2 o clock, biopsy: [...] ductal carcinoma (no special type) Histologic Grade ([place] grade): Glandular/tubular differentiation - score 3 Nuclear [...] - previously performed on section of tumor ([id number] / [id number]). ER positive (15%, weak intensity) WV negative (0%) Her2 krista positive (3+) Microcalcifications present in both invasive carcinoma and non-neoplastic tissue. Clinical history - Please make reference to previous specimen ([id number]) right breast at 1 o clock and [...] (98.1 F), weight 83.5 kg (184 lb), IhT250 %. Well-appearing and in no acute distress. EYES: Sclerae are anicteric bilaterally. LYMPHATIC: There is no palpable cervical, supraclavicular, axillary adenopathy. RESPIRATORY: Inspiratory breath sounds are of normal intensity in all barnes. No rales, wheezes or rhonchi. CARDIOVASCULAR: Rhythm is regular. ABDOMEN: The abdomen is nondistended. Extremities: No swelling or edema. SKIN: Resolution of subcutaneous metastasis near Xyvoid. 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 Absent patellar DTRs. [...] care. Rip Rivers DO documented in this encounterMercy Health St. [facility]06-03-2022 History of Present illness Narrative* RT [...] PERIPHERAL IV DATA: power port accessed by Smart Pipe SIGNED BY: RT Ashley(R) November 06, 2021 3:14 PM documented in this encounterMercy Health St. [facility]05-19-2022 History of Present illness Narrative* Rosemary Romero RN - 10/22/2021 9:50 AM EDT Assessment unchanged from office visit with Mary Cote on 10/21/21 documented in [address] encounterMercy Health St. [facility]05-18-2022 Miscellaneous Notes* Telephone Encounter - Williams Scott Pss - 10/21/2021 10:16 AM EDT Echo order faxed to [facility]. documented in this encounterMercy Health St. [facility]05-18-2022 History of Present illness Narrative* Caity Cote APRN.CLIENT REPORTING ASSOCIATE - 10/21/2021 9:17 AM EDT Chief Complaint Patient presents with: Established Patient HPI: Renate Christiansen is a 66 year old female who presents here today for evaluation for treatment tomorrow. Per Dr. Rivers's previous note: H/o discovered a lump on the lower inner portion of her right breast in the fall. She was seen at [facility] and underwent a right sided core biopsy on 02/16/2016 by interventional radiology. The tissue specimen demonstrated invasive ductal carcinoma, [place] grade 2. ERpositive (90%, very weak) and [...] positive, >90% Ki-67 (30-9) positive, 12% CK8 (34guwtI52) positive CK5-6 (D5 & 1684) negative Calponin-1 (KY757Z) negative P40 (BC28) negative E-Cad (ECH-6) positive MORPHOMETRIC ANALYSIS ER (clone 6F11) 15%, weak intensity WV (clone 16/1E2) 0% Her-2Neu (clone CB11) 3+ Block B Calponin-1 (BC791T) negative P40 (BC28) negative CK8 (49xgytB09) positive INTERPRETATION: A. Right breast 1 o clock, biopsy: Invasive ductal carcinoma, grade 3/3. Positive for estrogen receptors (favorable prognostic indicator). Negative for progesterone receptors (unfavorable prognostic indicator). Positive for overexpression of GGI8ogi. B. Right breast 2 o clock, biopsy: [...] - previously performed on section of tumor ([id number] / [id number]). ER positive (15%, weak intensity) WV negative (0%) Her2 krista positive (3+) Microcalcifications present in both invasive carcinoma and non-neoplastic tissue. Clinical history - Please make reference to previous specimen ([id number]) right breast at 1 o clock and [...] - 4.00 k/uL 1.29 1.29 1.14 1.42 [place]% % 9.9 9.6 8.2 9.5 Abs [place] <0.87 k/uL 0.57 0.46 0.55 0.45 Eosin% [...] every 3 cycles. Pt. has this done [facility]. - Continue zometa every 3 months. - [...] visit. Caity Cote APRN.ALESSANDRO documented in this encounterMercy Health St. [facility]04-28-2022 History of Present illness Narrative* Rosemary Romero RN - 10/01/2021 8:59 AM EDT Assessment unchanged from Dr rivers office visit documented in this encounterMercy Health St. [facility]04-27-2022 History of Present illness Narrative* Rip Rivers DO - 09/30/2021 10:26 AM EDT Diagnosis: 1) Metastatic recurrence of ER positive, WV negative, HER2 positive breast cancer. 2) Cardiomyopathy. HPI: The patient is a 65 year old female who discovered a lump on the lower inner portion of her right breast in the fall of 2015. She was seen at [facility] and underwent a right sided core biopsy on 02/16/2016 by interventional radiology. The tissue specimen demonstrated invasive ductal carcinoma, [place] grade 2. ERpositive (90%, very weak) and [...] positive, >90% Ki-67 (30-9) positive, 12% CK8 (47gdvxJ12) positive CK5-6 (D5 & 1684) negative Calponin-1 (GN152Q) negative P40 (BC28) negative E-Cad (ECH-6) positive MORPHOMETRIC ANALYSIS ER (clone 6F11) 15%, weak intensity WV (clone 16/1E2) 0% Her-2Neu (clone CB11) 3+ Block B Calponin-1 (LN553Z) negative P40 (BC28) negative CK8 (52uixwB63) positive INTERPRETATION: A. Right breast 1 o clock, biopsy: Invasive ductal carcinoma, grade 3/3. Positive for estrogen receptors (favorable prognostic indicator). Negative for progesterone receptors (unfavorable prognostic indicator). Positive for overexpression of LPK9epg. B. Right breast 2 o clock, biopsy: [...] - previously performed on section of tumor ([id number] / [id number]). ER positive (15%, weak intensity) WV negative (0%) Her2 krista positive (3+) Microcalcifications present in both invasive carcinoma and non-neoplastic tissue. Clinical history - Please make reference to previous specimen ([id number]) right breast at 1 o clock and [...] resolution of subcutaneous metastasis near Xyvoid. 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 Absent patellar DTRs. [...] care. Rip Rivers DO documented in this encounterMercy Health St. [facility]04-08-2022 Miscellaneous Notes* Telephone Encounter - Carla [...] patient. Carla Almonte RN documented in this encounterMercy Health St. [facility]04-06-2022 History of Present illness Narrative* Cris [...] Dosing Weight: 86.6 kg Estimated kilocalorie needs: 4032-4108 kilocalories determined by 25-30 kcal/kg Estimated protein [...] Ciprocinonide, Codeine, Demerol [Meperidine (Pf)], Erythromycin, Latex, [place] [Hydrocodone- Acetaminophen], Nubain [Nalbuphine Hcl], Percocet [Oxycodone-Acetaminophen], Prednisone, Irrigon, and Sulfa (Sulfonamide Antibiotics) Medications: Current Outpatient [...] mL injection (DEFINITY) INTRAVENOUS DIRECTED PRN Caity Cote, VE TEACHER.CLIENT REPORTING ASSOCIATE sodium chloride 0.9 % (flush) 10 mL (BD POSIFLUSH) 10 mL INTRAVENOUS DIRECTED PRN Caity Cote, VE TEACHER.CLIENT REPORTING ASSOCIATE perflutren lipid microspheres 1.3 mL in NaCl (PF) 0.9% 10 mL injection (DEFINITY) INTRAVENOUS DIRECTED PRN Caity Cote, VE TEACHER.CLIENT REPORTING ASSOCIATE sodium chloride 0.9 % (flush) 10 mL (BD POSIFLUSH) 10 mL INTRAVENOUS DIRECTED PRN Caity Cote, VE TEACHER.CLIENT REPORTING ASSOCIATE perflutren lipid microspheres 1.3 mL in NaCl (PF) 0.9% 10 mL injection (DEFINITY) INTRAVENOUS DIRECTED PRN Caity Cote, EREN.CLIENT REPORTING ASSOCIATE sodium chloride 0.9 % (flush) 10 mL (BD POSIFLUSH) 10 mL INTRAVENOUS DIRECTED SHIRA Cote APRN.CNP (date of last encounter ): Nutrition Monitoring [...] by: Cris Ashby RD,LD documented in this encounterMer[facility]2022 Miscellaneous Notes* Telephone Encounter - DIO Leach - 09/08/2021 11:58 AM EDT SOCIAL WORK FOLLOW UP NOTE: [facility] Date of service: September 08, 2021 Renate Christiansen is being seen for a follow up social work visit. Today's visit includes: patient and Rx Outreach TOPICS ADDRESSED: Finances; [place] [employer] capsules, which would cost [...] F/U APPOINTMENT: PRDIO Schmidt documented in this encounterMer[facility]04-04-2022 History of Present illness Narrative* DIO Leach - 09/07/2021 10:52 AM EDT SOCIAL WORK FOLLOW UP NOTE: [facility] Date of service: September 07, 2021 Renate Christiansen is being seen for a follow up social work visit. Today's visit includes: patient TOPICS ADDRESSED: Finances; ELOISA met with patient on this day to complete application for Lyrica assistance. SW faxed to program on this day. No other needs identified. PLAN: Assist with financial support applications and Continue follow up as needed F/U APPOINTMENT: PRDIO Schmidt documented in this encounterMer[facility]04-04-20[facility] History of Present illness Narrative* Jazmin [...] 07, 2021 10:42 AM documented in this encounterMer[facility]04-01-2022 Miscellaneous Notes* Telephone Encounter - Kayla Elliott - 09/04/2021 3:58 PM EDT Rec'd email from department. Spoke with patient today. Patient is active with Medicare A and B as well as [facility] AARP Supplement and is not expected to have any financial responsibility for treatment inHEMA TR. There are no open foundations for dx. Patient stated understanding and advised that she does not need any assistance. documented in this encounterMer[facility]04-01-2022 Nurse Note* Carla Almonte RN - [...] Work Carla Almonte RN documented in this encounterMer[facility] Health [facility]. [facility]03-31-2022 Miscellaneous Notes* Telephone Encounter - Williams Cast - 09/03/2021 12:26 PM EDT Schedule updated. * Telephone Encounter - Carla Almonte RN - 09/03/2021 10:06 AM EDT Patient informed of Dr. Rivers's response, stated understanding. Patient stated to have schedulers add appointment and she will check [facility] for treatment date/time. See Dr. Rivers's note, okay to cancel tomorrows treatment and delay a week. Patient also requesting a cruise coordinator appointment. Please schedule on 09/09/21 at 11:00 [...] week. Carla Almonte RN documented in this encounterMer[facility]03-31-2022 Miscellaneous Notes* Telephone Encounter - DOI Leach - 09/03/2021 9:15 AM EDT PSYCHOSOCIAL [...] living Child/Children: Yes. How many? 2 children clinical care leader arrangements needed: No Siblings: 4 sister(s) and 3 brother(s); 1 sister passed Grandchild(giuseppe): > 5 Home Health Provider: No Community Services: No Ruby Identified: Yes Restorationism/Spirituality: Adventism Are these practices or beliefs that may affect or influence treatment? No EMPLOYMENT/FINANCIAL/HEALTH INSURANCE: Employment: Retired Income source: Social Security Insurance: Medicare with co-insurance Prescription coverage: Yes Is the patient appropriate for [facility] COBRA Assistance program? No Financial Distress: No [place]: No FOOD INSECURITY Within the past year, [...] EPIC: Yes Health Care Durable Power of House Repairer: Yes Scanned into EPIC: Yes Guardianship: NA [...] SW in: DIO Velasco documented in this encounterMercy Health St. [facility]03-30-2022 Miscellaneous Notes* Telephone Encounter - Carla Almonte RN - 09/02/2021 3:43 PM EDT Thank you. * Telephone Encounter - Williams Cast - 09/02/2021 3:29 PM EDT US was [...] patient. Carla Almonte RN documented in this encounterMercy Health St. [facility]03-30-2022 History of Present illness Narrative* Rip Rivers DO - 09/02/2021 10:14 AM EDT Diagnosis: 1) Metastatic recurrence of ER positive, WV negative, HER2 positive breast cancer. 2) Cardiomyopathy. HPI: The patient is a 65 year old female who discovered a lump on the lower inner portion of her right breast in the fall of 2015. She was seen at [facility] and underwent a right sided core biopsy on 02/16/2016 by interventional radiology. The tissue specimen demonstrated invasive ductal carcinoma, [place] grade 2. ERpositive (90%, very weak) and [...] positive, >90% Ki-67 (30-9) positive, 12% CK8 (69pqieL30) positive CK5-6 (D5 & 1684) negative Calponin-1 (QV860L) negative P40 (BC28) negative E-Cad (ECH-6) positive MORPHOMETRIC ANALYSIS ER (clone 6F11) 15%, weak intensity WV (clone 16/1E2) 0% Her-2Neu (clone CB11) 3+ Block B Calponin-1 (MD350G) negative P40 (BC28) negative CK8 (24uyznF04) positive INTERPRETATION: A. Right breast 1 o clock, biopsy: Invasive ductal carcinoma, grade 3/3. Positive for estrogen receptors (favorable prognostic indicator). Negative for progesterone receptors (unfavorable prognostic indicator). Positive for overexpression of BRO2zjr. B. Right breast 2 o clock, biopsy: [...] ductal carcinoma (no special type) Histologic Grade ([place] grade): Glandular/tubular differentiation - score 3 Nuclear [...] - previously performed on section of tumor ([id number] / [id number]). ER positive (15%, weak intensity) WV negative (0%) Her2 krista positive (3+) Microcalcifications present in both invasive carcinoma and non-neoplastic tissue. Clinical history - Please make reference to previous specimen ([id number]) right breast at 1 o clock and [...] (98.4 F), weight 86.6 kg (191 lb), QqN466 %. Well-appearing and in no acute distress. EYES: Sclerae are anicteric bilaterally. LYMPHATIC: There is no palpable cervical, supraclavicular, axillary adenopathy. RESPIRATORY: Inspiratory breath sounds are of normal intensity in all barnes. No rales, wheezes or rhonchi. Expiratory phase is normal. CARDIOVASCULAR: Rhythm is regular. ABDOMEN: The abdomen is nondistended. Extremities: No swelling or edema. SKIN: No jaundice or rash. No petechiae. 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 Absent patellar DTRs. [...] care. Rip Rivers DO documented in this encounterMercy Health St. [facility]03-22-2022 History of Present illness Narrative* Shae Damon, RT(R) - 08/25/2021 9:30 AM EDT RADIOLOGY [...] 823 PATIENT DISCHARGED TO: Ambulatory patient, left [place] department area. A Diagnostic radioactive procedure has taken place, with no further precautions necessary other than routine body substance precautions. More information regarding radiation safety can be found usingthis link: [email or web address] SIGNATURE: RT Fannie(R) PATIENT NAME: Renate Christiansen DATE: August 25, 2021 TIME: 8:35 AM PAGER/CONTACT #: documented in [facility]* Diagnosis Malignant neoplasm of lower-inner quadrant of right breast of female, estrogen receptor positive (HCC) Bone metastases (HCC) Secondary malignant neoplasm of bone and bone marrow documented [facility]* Diagnosis Malignant neoplasm of lower-inner quadrant of right breast of female, estrogen receptor positive (HCC)- Primary Malignant neoplasm metastatic to both lungs (HCC) Skin, 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* Diagnosis Malignant neoplasm of lower-inner quadrant of right breast of female, estrogen receptor positive (HCC) Malignant neoplasm metastatic to lung, unspecified laterality (HCC) [facility]* Diagnosis Malignant neoplasm of lower-inner quadrant of right breast of female, estrogen receptor positive (HCC)- Primary Malignant neoplasm metastatic to both lungs (HCC) documented [facility]* Diagnosis Malignant neoplasm of lower-inner quadrant of right female breast, unspecified estrogen receptor status (HCC)- Primary documented [facility]* Diagnosis Thyroid nodule Nontoxic uninodular goiter [facility]* Diagnosis Malignant neoplasm of lower-inner quadrant of right breast of female, estrogen receptor positive (HCC) Malignant neoplasm metastatic to both lungs (HCC) [facility] Diagnosis Malignant neoplasm metastatic to both lungs (HCC)- Primary Bone metastases (HCC) Secondary malignant neoplasm of bone and bone marrow Malignant neoplasm metastatic to lung, unspecified laterality (HCC) Malignant neoplasm of lower-inner quadrant of right breast of female, estrogen receptor positive (HCC) [facility]* Diagnosis Malignant neoplasm metastatic to [...] Resolution Status Non-ischemic cardiomyopathy resolved [facility] Work Phone: Evaluation note* Diagnosis Malignant neoplasm metastatic to lung, unspecified laterality (HCC) Bone metastases (HCC) Secondary malignant neoplasm of bone and bone marrow Malignant neoplasm of lower-inner quadrant of right breast of female, estrogen receptor positive (HCC) [facility] Diagnosis Malignant neoplasm of lower-inner [...] receptor positive (HCC) [facility]* Diagnosis Malignant neoplasm metastatic to [...] receptor positive (HCC) documented [facility] encounter [facility]* Diagnosis Malignant neoplasm of lower-inner quadrant of right breast of female, estrogen receptor positive (HCC)- Primary Bone metastases (HCC) 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* Diagnosis Malignant neoplasm metastatic to lung, unspecified laterality (HCC)- Primary Bone metastases (HCC) Secondary malignant neoplasm of bone and bone marrow Malignant neoplasm of lower-inner quadrant of right breast of female, estrogen receptor positive (HCC) documented in this encounter 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 Encounter for monitoring cardiotoxic drug therapy Encounter for therapeutic drug monitoring documented [facility] this encounter [facility]* Diagnosis Bone metastases (HCC)- Primary Secondary malignant neoplasm of bone and bone marrow Malignant neoplasm metastatic to lung, unspecified laterality (HCC) Malignant neoplasm of lower-inner quadrant of right breast of female, estrogen receptor positive (HCC) [facility]* Diagnosis Malignant neoplasm metastatic to lung, unspecified laterality (HCC)- Primary [facility]* Diagnosis Onset Date Resolution Status Breast cancer, right breast chronic [facility] Work Phone: Evaluation note* Diagnosis Malignant neoplasm metastatic to lung, unspecified laterality (HCC)- Primary Bone metastases (HCC) Secondary malignant neoplasm of bone and bone marrow Malignant neoplasm of lower-inner quadrant of right breast of female, estrogen receptor positive (HCC) Chemotherapy induced diarrhea Diarrhea [facility] Diagnosis Malignant neoplasm of lower-inner quadrant of right breast of female, estrogen receptor positive (HCC)- Primary Bone metastases (HCC) 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, 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 Malignant neoplasm metastatic to both lungs (HCC) [facility]* Diagnosis Bone metastases (HCC)- Primary Secondary malignant neoplasm of bone and bone marrow Malignant neoplasm metastatic to lung, unspecified laterality (HCC) Malignant neoplasm of lower-inner quadrant of right breast of female, estrogen receptor positive (HCC) [facility]* Diagnosis Malignant neoplasm of lower-inner quadrant of right breast of female, estrogen receptor positive (HCC)- Primary Bone metastases (HCC) 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, 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 Malignant neoplasm metastatic to both lungs (HCC) Encounter for monitoring cardiotoxic drug therapy Encounter for therapeutic drug monitoring [facility]* Diagnosis Skin, metastatic cancer to [...] induced diarrhea Diarrhea [facility]* Diagnosis Malignant neoplasm of lower-inner quadrant of right breast of female, estrogen receptor positive (HCC) Malignant neoplasm metastatic to bone (HCC) Secondary malignant neoplasm of bone and bone marrow Malignant neoplasm metastatic to lung, unspecified laterality (HCC) 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, unspecified [facility] Diagnosis Onset Date Resolution Status Non-ischemic cardiomyopathy acute Breast cancer, right breast chronic [facility] Work Phone: Evaluation note* Diagnosis Malignant neoplasm metastatic to left lung (HCC)- Primary [facility]* Diagnosis Malignant neoplasm metastatic to left lung (HCC)- Primary [facility]* Diagnosis Onset Date Resolution Status Non-ischemic cardiomyopathy acute Breast cancer, right breast chronic Acute dyspnea acute Breast cancer metastasized to lung acute Elevated d-dimer acute [facility] Work Phone: Evaluation note* Diagnosis Malignant neoplasm metastatic to bone (HCC)- Primary Secondary malignant neoplasm of bone and bone marrow [facility]* Diagnosis Malignant neoplasm metastatic to left lung (HCC)- Primary [facility]* Diagnosis Malignant neoplasm of lower-inner quadrant of right breast of female, estrogen receptor positive (HCC) Malignant neoplasm metastatic to bone (HCC) Secondary malignant neoplasm of bone and bone marrow Malignant neoplasm metastatic to lung, unspecified laterality (HCC) 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, unspecified [facility] Diagnosis Malignant neoplasm metastatic to bone (HCC)- Primary Secondary malignant neoplasm of bone and bone marrow Malignant neoplasm of lower-inner quadrant of right breast of female, estrogen receptor positive (HCC) Malignant neoplasm metastatic to lung, unspecified laterality (HCC) 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, unspecified documented in this encounter [facility]* Diagnosis Malignant neoplasm metastatic to bone [...] Other screening mammogram [facility]* Diagnosis Multiple thyroid nodules Nontoxic [...] Secondary cardiomyopathy, unspecified documented in this encounter [facility]* Diagnosis Malignant neoplasm metastatic to bone (HCC)- Primary Secondary malignant neoplasm of bone and bone marrow Malignant neoplasm metastatic to lung, unspecified laterality (HCC) Malignant neoplasm of lower-inner quadrant of right breast of female, estrogen receptor positive (HCC) documented in this encounter [facility]* Diagnosis Onset Date Resolution Status Acute dyspnea acute Non-ischemic cardiomyopathy acute Breast cancer, right breast chronic [facility] Work Phone: Evaluation note* Diagnosis Malignant neoplasm of lower-inner quadrant of right breast of female, estrogen receptor positive (HCC) (HCC) Malignant neoplasm metastatic to bone (HCC) Secondary malignant neoplasm of bone and bone marrow Malignant neoplasm metastatic to lung, unspecified laterality (HCC) Chemotherapy-induced cardiomyopathy (HCC) (HCC) Secondary cardiomyopathy, unspecified documented in this encounter [facility] Diagnosis Malignant neoplasm of lower-inner quadrant of right breast of female, estrogen receptor positive (HCC) (HCC)- Primary Malignant neoplasm metastatic to both lungs (HCC) Malignant neoplasm metastatic to bone (HCC) Secondary malignant neoplasm of bone and bone marrow [facility] Diagnosis Malignant neoplasm metastatic to bone (HCC)- Primary Secondary malignant neoplasm of bone and bone marrow Malignant neoplasm metastatic to lung, unspecified laterality (HCC) Malignant neoplasm of lower-inner quadrant of right breast of female, estrogen receptor positive (HCC) (HCC) [facility]* Diagnosis Malignant neoplasm metastatic to left lung (HCC) documented in this encounter [facility] Diagnosis Malignant neoplasm of lower-inner quadrant of right breast of female, estrogen receptor positive (HCC) Malignant neoplasm metastatic to bone (HCC) Secondary malignant neoplasm of bone and bone marrow Malignant neoplasm metastatic to lung, unspecified laterality (HCC) 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, unspecified documented in this encounter [facility] Diagnosis Malignant neoplasm of lower-inner [...] [facility]* Diagnosis Malignant neoplasm of prostate (HCC)- Primary Malignant neoplasm of prostate Malignant neoplasm of lower-inner quadrant of right breast of female, estrogen receptor positive (HCC) Malignant neoplasm metastatic to lung, unspecified laterality (HCC) Malignant neoplasm metastatic to bone (HCC) 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) documented in this encounter [facility] Diagnosis Malignant neoplasm of lower-inner [...] therapeutic drug monitoring documented in this encounter [facility]* Diagnosis Malignant neoplasm metastatic to both lungs (CMS/HCC)- Primary Malignant neoplasm metastatic to bone (CMS/HCC) 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) Platelets decreased (CMS/HCC) Unspecified thrombocytopenia Primary hypertension Unspecified essential hypertension Heart disease Unspecified heart disease documented in this encounter [facility] Work Phone: Evaluation note* Diagnosis Malignant neoplasm metastatic to bone (HCC)- Primary Secondary malignant neoplasm of bone and bone marrow Malignant neoplasm of lower-inner quadrant of right breast of female, estrogen receptor positive (HCC) Malignant neoplasm metastatic to lung, unspecified laterality (HCC) HER2-positive carcinoma of breast (HCC) documented [facility] encounter [facility]* Diagnosis Malignant neoplasm of lower-inner quadrant of right breast of female, estrogen receptor positive (HCC)- Primary documented in this encounter [facility]* Diagnosis Malignant neoplasm of lower-inner quadrant of right breast of female, estrogen receptor positive (HCC) Malignant neoplasm metastatic to lung, unspecified laterality (HCC) Malignant neoplasm metastatic to bone (HCC) 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, 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 documented in this encounter [facility] Diagnosis Malignant neoplasm of lower-inner quadrant [...] induced diarrhea Diarrhea [facility] Diagnosis Malignant neoplasm of lower-inner [...] and immunity disorders [facility] Diagnosis Malignant neoplasm of lower-inner quadrant of right breast of female, estrogen receptor positive (HCC)- Primary Malignant neoplasm metastatic to lung, unspecified laterality (HCC) Malignant neoplasm metastatic to bone (HCC) 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) [facility] Diagnosis Malignant neoplasm of lower-inner [...] and immunity disorders [facility] Diagnosis Malignant neoplasm of lower-inner [...] both lungs (HCC) documented [facility] Diagnosis History of thyroid nodule Personal history of other endocrine, metabolic, and immunity disorders documented in this encounter [facility]* Diagnosis Malignant neoplasm of lower-inner quadrant of right breast of female, estrogen receptor positive (HCC) Malignant neoplasm metastatic to bone (HCC) Secondary malignant neoplasm of bone and bone marrow Malignant neoplasm metastatic to both lungs (HCC) documented in this encounter [facility]* Diagnosis Malignant neoplasm of lower-inner quadrant of right breast of female, estrogen receptor positive (HCC) Malignant neoplasm metastatic to lung, unspecified laterality (HCC) Malignant neoplasm metastatic to bone (HCC) 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) Malignant neoplasm metastatic to both lungs (HCC) documented [facility] this [facility] Diagnosis Malignant neoplasm of lower-inner quadrant of right breast of female, estrogen receptor positive (HCC)- Primary Malignant neoplasm metastatic to bone (HCC) 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 [facility] Diagnosis Malignant neoplasm of lower-inner quadrant of right breast of female, estrogen receptor positive (HCC)- Primary Malignant neoplasm metastatic to lung, unspecified laterality (HCC) Malignant neoplasm metastatic to bone (HCC) 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) documented [facility] noteNo assessment information availableW[facility] Work Phone: Evaluation note* Diagnosis Routine general medical examination at health care facility- Primary Routine general medical examination at a health care facility Malignant neoplasm metastatic to both lungs Bronchitis Bronchitis, not specified as acute or chronic History of right breast cancer Heart disease Unspecified heart disease documented in this encounter [facility] Work Phone: Evaluation note* Diagnosis Malignant neoplasm of lower-inner quadrant of right breast of female, estrogen receptor positive (HCC)- Primary HER2-positive carcinoma of breast (HCC) Malignant neoplasm metastatic to lung, unspecified laterality (HCC) documented [facility] Diagnosis Malignant neoplasm of lower-inner quadrant [...] neoplasm of lung documented [facility]* Diagnosis Malignant neoplasm metastatic to left lung (HCC)- Primary Secondary malignant neoplasm of right lung (HCC) Secondary malignant neoplasm of lung [facility] Diagnosis Malignant neoplasm of lower-inner quadrant of right breast of female, estrogen receptor positive (HCC) HER2-positive carcinoma of breast (HCC) Malignant neoplasm metastatic to bone (HCC) Secondary malignant neoplasm of bone and bone marrow documented in this encounter [facility] note* Diagnosis Malignant neoplasm of lower-inner quadrant [...] Nontoxic uninodular goiter documented in this encounter [facility] note* Diagnosis Nontoxic single thyroid nodule Nontoxic uninodular goiter documented in this encounter [facility] for referral (narrative)* Diagnostic Procedure Only (Routine) - Closed Specialty Diagnoses / Procedures Referred By Contac t Referred To Contact MOLECULAR & FUNCTIONAL IMAGING Diagnoses Malignant neoplasm of lower-inner quadrant of right breast of female, estrogen receptor positive (HCC) Bone metastases (HCC) Procedures NM PET/CT SKULL-THIGH INITIAL PET IMAGING CT ATTENUATION SKULL BASE MID-THIGH Rip Rivers DO [address] [place] [address] Molecular & Functional Imaging [address] [place] [address] Referral ID Status Reason Start Date Expiration Date V isits Requested Visits Authorized [id number] Closed Auto-Generate d Referral 08/12/2021 09/11/2022 1 1 [facility] for referral (narrative)* Diagnostic Procedure Only (Routine) - Authorized Specialty Diagnoses / Procedures Referred By Contac t Referred To Contact US IMAGING Diagnoses Thyroid nodule Procedures US THYROID/PARATHYROID US SOFT TISSUE HEAD & NECK REAL TIME IMGE DOCM Rip Rivers DO [address] [place] [address] Us Imaging Referral ID Status Reason Start Date Expiration Date Visits Requested Visits Authorized [id number] Authorized Auto-Generat ed Referral 09/02/2021 10/02/2022 1 1 [facility] for referral (narrative)* Diagnostic Procedure Only (Routine) - Closed Specialty Diagnoses / Procedures Referred By Contac t Referred To Contact US IMAGING Diagnoses Thyroid nodule Procedures US THYROID/PARATHYROID US SOFT TISSUE HEAD & NECK REAL TIME IMGE [facility] DO [address] [place] [address] Us Imaging Referral ID Status Reason Start Date Expiration Date V isits Requested Visits Authorized [id number] Closed Auto-Generate d Referral 09/02/2021 10/02/2022 1 1 [facility] for referral (narrative)* Outpatient Procedure (Routine) - [...] REC COMP Rip Rivers DO [address] [place] [address] [facility] [address] [place] [address] Referral ID Status Reason Start Date Expiration Date Visits Requested Visits Authorized [id number] Pending Review Auto-Generat ed Referral 01/07/2022 01/07/2023 1 1 [facility] for referral (narrative)* Outpatient Procedure (Routine) - Pending Review Specialty Diagnoses / Procedures Referred By Contac t Referred To Contact [facility] Diagnoses Malignant neoplasm of lower-inner quadrant of right breast of female, estrogen receptor positive (HCC) Bone metastases (HCC) Encounter for monitoring cardiotoxic drug therapy Procedures ECHO ECHO TTHRC R-T 2D W/WOM-MODE COMPL SPEC&COLR D Caity Cote APRN.CLIENT REPORTING ASSOCIATE [address] [place] [address] [facility] [address] [place] [address] Referral ID Status Reason Start Date Expiration Date Visits Requested Visits Authorized [id number] Pending Review Auto-Generat ed Referral 04/14/2022 04/14/2023 1 1 * MRI/CT (Routine) - Pending Review Specialty Diagnoses / Procedures Referred By Carmen moore Referred To Contact CT IMAGING Diagnoses Malignant neoplasm of lower-inner quadrant of right breast of female, estrogen receptor positive (HCC) Bone metastases (HCC) Procedures CT CHEST W IVCON DIAGNOSTIC COMPUTED TOMOGRAPHY THORAX W/CONTRAST Caity Cote APRN.CLIENT REPORTING ASSOCIATE [address] [place] [address] Ct Imaging Referral ID Status Reason Start Date Expiration Date Visits Requested Visits Authorized [id number] Pending Review Auto-Generat ed Referral 04/14/2022 05/14/2023 1 1 * MRI/CT (Routine) - Pending Review Specialty Diagnoses / Procedures Referred By Carmen moore Referred To Contact CT IMAGING Diagnoses Malignant neoplasm of lower-inner quadrant of right breast of female, estrogen receptor positive (HCC) Bone metastases (HCC) Procedures CT ABD/PEL W IVCON CT ABD & PELVIS W/CONTRAST Caity Cote APRN.CLIENT REPORTING ASSOCIATE [address] [place] [address] Ct Imaging Referral ID Status Reason Start Date Expiration Date Visits Requested Visits Authorized [id number] Pending Review Auto-Generat ed Referral 04/14/2022 05/14/2023 1 1 [facility] for referral (narrative)* Outpatient Procedure (Routine) - Pending Review Specialty Diagnoses / Procedures Referred By Contac t Referred To Contact [facility] Diagnoses Malignant neoplasm of lower-inner quadrant of right breast of female, estrogen receptor positive (HCC) Bone metastases (HCC) Skin, 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) Malignant neoplasm metastatic to both lungs (HCC) Encounter for monitoring cardiotoxic drug therapy Procedures ECHO ECHO TTHRC R-T 2D W/WOM-MODE COMPL SPEC&COLR D Caity Cote APRN.CLIENT REPORTING ASSOCIATE [address] [place] [address] [facility] [address] [place] [address] Referral ID Status Reason Start Date Expiration Date Visits Requested Visits Authorized [id number] Pending Review Auto-Generat ed Referral 06/15/2022 06/15/2023 1 1 [facility] for referral (narrative)* Outpatient Procedure (Routine) - Pending Review Specialty Diagnoses / Procedures Referred By Contac t Referred To Contact [facility] Diagnoses Chemotherapy-induced cardiomyopathy (HCC) Procedures ECHO ECHO TTHRC R-T 2D W/WOM-MODE COMPL SPEC&COLR D Rip Rivers DO [address] [place] [place] [address] [facility] [address] [place] [address] Referral ID Status Reason Start Date Expiration Date Visits Requested Visits Authorized [id number] Pending Review Auto-Generat ed Referral 10/20/2022 10/20/2023 1 1 [facility] for referral (narrative)* Diagnostic Procedure Only (Routine) - Closed Specialty Diagnoses / Procedures Referred By Contac t Referred To Contact XR IMAGING Diagnoses Chronic left sacroiliac pain Procedures XR SACROILIAC JOINTS 2V AP PELVIS/FERGUESON RADIOLOGIC EXAMINATION SACROILIAC JNTS <3 VIEWS Rip Rivers, DO [address] [facility] [place] [address] Xr Imaging Referral ID Status Reason Start Date Expiration Date V isits Requested Visits Authorized [id number] Closed Auto-Generate d Referral 11/10/2022 12/10/2023 1 1 * Diagnostic Procedure Only (Routine) - Closed Specialty Diagnoses / Procedures Referred By Contac t Referred To Contact XR IMAGING Diagnoses Chronic left sacroiliac pain Procedures XR LUMBAR LIMITED 2V AP/LAT RADEX SPINE LUMBOSACRAL 2/3 VIEWS Rip Rivers DO [address] [facility] [place] [address] Xr Imaging Referral ID Status Reason Start Date Expiration Date V isits Requested Visits Authorized [id number] Closed Auto-Generate d Referral 11/10/2022 12/10/2023 1 1 [facility] for referral (narrative)* Diagnostic Procedure Only (Routine) - Authorized Specialty Diagnoses / Procedures Referred By Nachoac t Referred To Contact BR IMAGING Diagnoses Abnormal mammogram Procedures US BREAST LTD LT US BREAST UNI REAL TIME WITH IMAGE LIMITED Rip Rivers DO [address] [facility] [place] [address] Br Imaging [address] [place] [address] Referral ID Status Reason Start Date Expiration Date Visits Requested Visits Authorized [id number] Authorized Auto-Generat ed Referral 08/24/2022 09/23/2023 1 1 [facility] for referral (narrative)* Outpatient Procedure (Routine) - Pending Review Specialty Diagnoses / Procedures Referred By Nachoac [...] Rip Rivers DO [address] [place] [address] [facility] [address] [facility] [address] Referral ID Status Reason Start Date Expiration Date Visits Requested Visits Authorized [id number] Pending Review Auto-Generat ed Referral 12/22/2022 12/22/2023 [...] W/CONTRAST Rip Rivers DO [address] [place] [address] Ct Imaging Referral ID Status Reason Start Date Expiration Date Visits Requested Visits Authorized [id number] Authorized Auto-Generat ed Referral 12/22/2022 01/21/2024 1 [...] PELVIS W/CONTRAST Rip Rivers DO [address] [place] [address] Ct Imaging Referral ID Status Reason Start Date Expiration Date Visits Requested Visits Authorized [id number] Authorized Auto-Generat ed Referral 12/22/2022 01/21/2024 1 1 [facility] for referral (narrative)* Diagnostic Procedure Only (Routine) - Closed Specialty Diagnoses / Procedures Referred By Contac t Referred To Contact BR IMAGING Diagnoses Encounter for screening mammogram for malignant neoplasm of breast Procedures MAXIM SCREENING W OMI SCREENING DIGITAL BREAST TOMOSYNTHESIS BI SCREENING MAMMOGRAPHY BI 2-VIEW BREAST INC CAD Rip Rivers, DO [address] [place] [address] Br Imaging [address] [place] [address] Referral ID Status Reason Start Date Expiration Date V isits Requested Visits Authorized [id number] Closed Auto-Generate d Referral 07/06/2022 08/05/2023 1 1 T [facility] for referral (narrative)* Diagnostic Procedure Only (Routine) - Closed Specialty Diagnoses / Procedures [facility] Referred To Contact US IMAGING Diagnoses Multiple thyroid nodules Procedures US THYROID/PARATHYROID US SOFT TISSUE HEAD & NECK REAL TIME IMGE DOCM Rip Rivers, DO [address] [place] [address] [place] [address] Referral ID Status Reason Start Date Expiration Date V isits Requested Visits Authorized [id number] Closed Auto-Generate d Referral 03/16/2023 04/14/2024 1 1 T [facility] for referral (narrative)* Diagnostic Procedure Only (Routine) - Closed Specialty Diagnoses / Procedures [facility] Referred To Contact XR IMAGING Diagnoses Chronic left sacroiliac pain Procedures XR SACROILIAC JOINTS 2V AP PELVIS/FERGUESON RADIOLOGIC EXAMINATION SACROILIAC JNTS <3 VIEWS Rip Rivers, DO [address] [place] [place] [address] [place] [address] Referral ID Status Reason Start Date Expiration Date V isits Requested Visits Authorized [id number] Closed Auto-Generate d Referral 11/10/2022 12/10/2023 1 1 * Diagnostic Procedure Only (Routine) - Closed Specialty Diagnoses / Procedures Referred By Nachoac t Referred To Contact XR IMAGING Diagnoses Chronic left sacroiliac pain Procedures XR LUMBAR LIMITED 2V AP/LAT RADEX SPINE LUMBOSACRAL 2/3 VIEWS Rip Rivers DO [address] [place] [address] Xr Imaging [facility] Referral ID Status Reason Start Date Expiration Date V isits Requested Visits Authorized [id number] Closed Auto-Generate d Referral 11/10/2022 12/10/2023 1 1 [facility] for referral (narrative)* Outpatient Procedure (Routine) - Pending Review Specialty Diagnoses / Procedures Referred By Nachoac t Referred To Contact [facility] Diagnoses Malignant neoplasm metastatic to both lungs (HCC) Encounter for monitoring cardiotoxic drug therapy Procedures ECHO ECHO TTHRC R-T 2D W/WOM-MODE COMPL SPEC&COLR D Rip Rivers DO [address] [place] [address] [facility] [address] [place] [address] Referral ID Status Reason Start Date Expiration Date Visits Requested Visits Authorized [id number] Pending Review Auto-Generat ed Referral 3 04/25/2024 1 1 [facility] for referral (narrative)* Diagnostic Procedure Only (Routine) - Authorized Specialty Diagnoses / Procedures Referred By Nachoac [...] Rip Rivers DO [address] [place] [address] Molecular & Functional Imaging [address] [id number] Referral ID Status Reason Start Date Expiration Date Visits Requested Visits Authorized [id number] Authorized Auto-Generat ed Referral 08/10/2023 09/08/2024 1 1 [facility] for referral (narrative)* Diagnostic Procedure Only (Routine) - Authorized Specialty Diagnoses / Procedures Referred By Contac t Referred To Contact US IMAGING Diagnoses RUQ pain Procedures US ABD RIGHT UPPER QUADRANT US ABDOMINAL REAL TIME W/IMAGE LIMITED Rip Rivers, DO [address] [facility] [place] [address] [place] [address] Referral ID Status Reason Start Date Expiration Date Visits Requested Visits Authorized [id number] Authorized Auto-Generat ed Referral 08/30/2023 2024 1 1 [facility] for referral (narrative)* Outpatient Procedure (Routine) - Pending Review Specialty Diagnoses / Procedures Referred By Contac t Referred To Contact [facility] Diagnoses Encounter for monitoring cardiotoxic drug therapy Procedures ECHO ECHO TTHRC R-T 2D W/WOM-MODE COMPL SPEC&COLR D Rip Rivers, DO [address] [facility] [place] [address] [facility] [address] [place] [address] Referral ID Status Reason Start Date Expiration Date Visits Requested Visits Authorized [id number] Pending Review Auto-Generat ed Referral 09/21/2023 09/20/2024 1 1 [facility] for referral (narrative)* Outpatient Procedure (Routine) - Pending Review Specialty Diagnoses / Procedures Referred By Contac t Referred To Contact [facility] Diagnoses Chemotherapy-induced cardiomyopathy (HCC) Encounter for monitoring cardiotoxic drug therapy Procedures ECHO ECHO TTHRC R-T 2D W/WOM-MODE COMPL SPEC&COLR D Rip Rivers DO [address] [place] [address] [facility] [address] [place] [address] Referral ID Status Reason Start Date Expiration Date Visits Requested Visits Authorized [id number] Pending Review Auto-Generat ed Referral 11/23/2023 11/22/2024 1 1 [facility] for referral (narrative)* Consultation (Routine) - Authorized Specialty Diagnoses / Procedures Referred By Contac t Referred To Contact Primary Care Procedures Follow Up In Primary Care - Established Williams Farrell DO [address] [place] [address] [place] [address] Referral ID Status Reason Start Date Expiration Date V isits Requested Visits Authorized [id number] Authorized 06/16/2023 06/15/2024 1 1 [facility] Work Phone: [facility] for referral (narrative)* Outpatient Procedure (Routine) - New Request Specialty Diagnoses / Procedures Referred By Contac t Referred To Contact [facility] Diagnoses Encounter for monitoring cardiotoxic drug therapy Chemotherapy induced cardiomyopathy (HCC) Procedures ECHO ECHO TTHRC R-T 2D W/WOM-MODE COMPL SPEC&COLR D Rip Rivers DO [address] [place] [address] [facility] [address] [place] [address] Referral ID Status Reason Start Date Expiration Date Visits Requested Visits Authorized [id number] New Request Auto-Generat ed Referral 01/06/2024 01/05/2025 1 1 * Outpatient Procedure (Routine) - New Request Specialty Diagnoses / Procedures Referred By Contac t Referred To Contact [facility] Diagnoses Encounter for monitoring cardiotoxic drug therapy Procedures ECHO ECHO TTHRC R-T 2D W/WOM-MODE COMPL SPEC&COLR D Rip Rivers DO [address] [place] [address] [facility] [address] [place] [address] Referral ID Status Reason Start Date Expiration Date Visits Requested Visits Authorized [id number] New Request Auto-Generat ed Referral 01/06/2024 01/04/2025 1 1 [facility] for referral (narrative)* Outpatient Procedure (Routine) - New Request Specialty Diagnoses / Procedures Referred By Carmen moore Referred To Contact [facility] Diagnoses Chemotherapy induced cardiomyopathy (HCC) Encounter for monitoring cardiotoxic drug therapy Procedures CARDIO ONCOLOGY ECHO ECHO TTHRC R-T 2D W/WOM-MODE COMPL SPEC&COLR D Rip Rivers DO [address] [facility] [place] [address] [facility] [address] [place] [address] Referral ID Status Reason Start Date Expiration Date Visits Requested Visits Authorized [id number] New Request Auto-Generat ed Referral 01/11/2024 01/10/2025 1 1 T [facility] for referral (narrative)No reason for referral information [facility]WSub[facility] Work Phone: Reason for visit Narrative* Diagnostic Procedure Only (Routine) - Closed Specialty Diagnoses / Procedures Referred By Carmen moore Referred To Contact MOLECULAR & FUNCTIONAL IMAGING Diagnoses Malignant neoplasm of lower-inner quadrant of right breast of female, estrogen receptor positive (HCC) Bone metastases (HCC) Procedures NM PET/CT SKULL-THIGH INITIAL PET IMAGING CT ATTENUATION SKULL BASE MID-THIGH Rip Rivers DO [address] [place] [address] Molecular & Functional Imaging [address] [place] [address] Referral ID Status Reason Start Date Expiration Date V isits Requested Visits Authorized [id number] Closed Auto-Generate d Referral 08/12/2021 09/11/2022 1 1 [facility] for visit Narrative* Diagnostic Procedure Only (Routine) - Closed Specialty Diagnoses / Procedures Referred By Carmen t Referred To Contact BR IMAGING Diagnoses Abnormal mammogram Procedures MAXIM DIAGNOSTIC LT DIAGNOSTIC MAMMOGRAPHY COMPUTER-AIDED DETCJ UNI Rip Rivers, DO [address] [place] [address] Br Imaging [address] [place] [address] Referral ID Status Reason Start Date Expiration Date V isits Requested Visits Authorized [id number] Closed Auto-Generate d Referral 08/24/2022 09/23/2023 1 1 [facility] for visit Narrative* Diagnostic Procedure Only (Routine) - Closed Specialty Diagnoses / Procedures Referred By Carmen t Referred To Contact BR IMAGING Diagnoses Encounter for screening mammogram for malignant neoplasm of breast Procedures MAXIM SCREENING W OMI SCREENING DIGITAL BREAST TOMOSYNTHESIS BI SCREENING MAMMOGRAPHY BI 2-VIEW BREAST INC CAD Rip Rivers, DO [address] [place] [address] Br Imaging [address] [place] [address] Referral ID Status Reason Start Date Expiration Date V isits Requested Visits Authorized [id number] Closed Auto-Generate d Referral 07/06/2022 08/05/2023 1 1 [facility] for visit Narrative* Diagnostic Procedure Only (Routine) - Closed Specialty Diagnoses / Procedures Referred By Carmen t Referred To Contact US IMAGING Diagnoses Multiple thyroid nodules Procedures US THYROID/PARATHYROID US SOFT TISSUE HEAD & NECK REAL TIME IMGE DOCM Rip Rivers, DO [address] [place] [address] [place] [address] Referral ID Status Reason Start Date Expiration Date V isits Requested Visits Authorized [id number] Closed Auto-Generate d Referral 03/16/2023 04/14/2024 1 1 [facility] for visit Narrative* Diagnostic Procedure Only (Routine) - Closed Specialty Diagnoses / Procedures Referred By Carmen moore Referred To Contact XR IMAGING Diagnoses Chronic left sacroiliac pain Procedures XR SACROILIAC JOINTS 2V AP PELVIS/FERGUESON RADIOLOGIC EXAMINATION SACROILIAC JNTS <3 VIEWS Rip Rivers DO [address] [place] [address] [place] [address] Referral ID Status Reason Start Date Expiration Date V isits Requested Visits Authorized [id number] Closed Auto-Generate d Referral 11/10/2022 12/10/2023 1 1 [facility] for visit Narrative* Diagnostic Procedure Only (Routine) [...] ATTENUATION SKULL BASE MID-THIGH Rip Rivers DO [address] [place] [address] Molecular & Functional Imaging [address] [place] [address] Referral ID Status Reason Start Date Expiration Date V isits Requested Visits Authorized [id number] Closed Auto-Generate d Referral 08/10/2023 09/08/2024 1 1 [facility] for visit Narrative* MRI/CT (Routine) - Closed Specialty Diagnoses / Procedures Referred By Carmen moore Referred To Contact CT IMAGING Diagnoses Malignant neoplasm of lower-inner quadrant of right breast of female, estrogen receptor positive (HCC) Malignant neoplasm metastatic to bone (HCC) Malignant neoplasm metastatic to both lungs (HCC) Procedures CT ABD/PEL W IVCON CT ABD & PELVIS W/CONTRAST Rip Rivers DO [address] [place] [address] Phone: tel: fax: [place] [address] Referral ID Status Reason Start Date Expiration Date V isits Requested Visits Authorized [id number] Closed Auto-Generate d Referral 08/15/2024 09/14/2025 1 1 [facility] for visit Narrative* [place] Prior Authorization (Routine) - Authorized Specialty Diagnoses / Procedures Referred By Carmen moore Referred To Contact Diagnoses Malignant neoplasm of lower-inner quadrant of right breast of female, estrogen receptor positive (HCC) Malignant neoplasm metastatic to lung, unspecified laterality (HCC) Malignant neoplasm metastatic to bone (HCC) HER2-positive carcinoma of breast (HCC) Rip Rivers, DO [address] [place] [address] Phone: tel: fax: Hematology/Oncology [address] [place] [address] Phone: tel: fax: Referral ID Status Reason Start Date Expiration Date V isits Requested Visits Authorized [id number] Authorized 08/30/2023 11/28/2023 99 99 [facility] for visit Narrative* MRI/CT (Routine) - Closed [...] DIAGNOSTIC COMPUTED TOMOGRAPHY THORAX W/CONTRAST Caity Cote, EREN.CLIENT REPORTING ASSOCIATE [address] [place] [address] Phone: tel: fax: [place] [address] Referral ID Status Reason Start Date Expiration Date V isits Requested Visits Authorized [id number] Closed Auto-Generate d Referral 12/26/2024 01/11/2026 1 1 [facility] for visit Narrative* Diagnostic Procedure Only (Routine) [...] BASE MID-THIGH Rip Rivers, DO [address] [place] [address] Phone: tel: fax: Molecular Imaging [address] [place] [phone] Phone: tel: Referral ID Status Reason Start Date Expiration Date V isits Requested Visits Authorized [id number] Closed Auto-Generate d Referral 01/11/2025 02/10/2026 [address] [facility] Advance Directives No Advanced Directives Records FoundDocuments on File Type Date Recorded Patient It Quality Analyst Expl anation Advance Directive(s) 06/04/2019 9:16 AM Advance Directive(s) 03/25/2016 10:44 AM Documents on File Type Date Recorded Patient It Quality Analyst Expl anation Advance Directive(s) 06/04/2019 9:16 AM Advance Directive(s) 03/25/2016 10:44 AM Advance Directive Response Recorded Date/ Time Advance Directives No February 2:40pm Living Will No May 01 019 10:24am Power of House Repairer No May 01, 2019 10:24am Documents on File Type Date Recorded Patient It Quality Analyst Expl anation Advance Directive(s) 06/04/2019 9:16 AM Documents on File Type Date Recorded Patient It Quality Analyst Expl anation Advance Directive(s) 06/04/2019 9:16 AM Advance Directive Response Recorded Date/ Time Advance Directives No February 1:40pm Living Will No May 01, 019 9:24am Power of House Repairer No May 01, 2019 9:24am Advance Directive Response Recorded Date/ Time Name of Medical Power of House Repairer tanvi/ February 16, 2023 6:54pm Advance Directives No February 2:40pm Living Will Yes February 16, 2023 6:54pm Power of House Repairer Yes February 6:54pm Advance Directive Response Recorded Date/ Time Name of Medical Power of House Repairer Tanvi Christiansen February 17, 2023 1:43am Advance Directives No February 2:40pm Living Will Yes February 17, 2023 1:43am Power of House Repairer Yes February 1:43am Advance Directive Response Recorded Date/ Time Name of Medical Power of House Repairer Tanvi Christiansen February 17, 2023 12:43am Advance Directives No February 1:40pm Living Will Yes February 17, 2023 12:43am Power of House Repairer Yes February 12:43am Advance Directive Response Recorded Date/ Time Name of Medical Power of House Repairer August 16, 2023 10:53pm Advance Directives No February 2:40pm Living Will Yes August 16, 2023 10:53pm Power of House Repairer Yes August 15 10:53pm Advance Directive Response [...] Action Action Date Dose Rate Site zoledronic nw-yannvzol-1.9NaCl 4 mg iv piggyback 100 mL (ZOMETA) 4 mg, INTRAVENOUS, Administer over 15 Minutes, ONCE, 1 dose, On 11/09/21 at 1400, Hazardous Potential Reproductive Risk Drug: [...] 02/04/2022 11:00 AM EDT 0.25 mg zoledronic zk-kbkrouom-4.9NaCl 4 mg iv piggyback 100 mL (ZOMETA) [...] 10 mg, INTRAVENOUS, ONCE, 1 dose, On Tue02/25/22 at 0900, Refrigerate. New Bag/Syringe/Bottle 02/25/2022 9:00 [...] mg, INTRAVENOUS, ONCE, 1 dose, On Amarilys 11/10/22 at 1030, Refrigerate. New Bag/Syringe/Bottle 04/15/2022 10:39 [...] 05/06/2022 10:55 AM EST 0.25 mg zoledronic wc-cuttsurx-2.9NaCl 4 mg iv piggyback 100 mL (ZOMETA) [...] 07/29/2022 9:30 AM EST 0.25 mg zoledronic sb-ymcyngag-5.9NaCl 4 mg iv piggyback 100 mL (ZOMETA) [...] over 30 Minutes, ONCE, 1 dose, On Tue01/13/23 at 1300, exp 1630 01/13/23 (room temp) [...] 01/13/2023 1:19 PM EDT 0.25 mg zoledronic ri-gaxmlvhj-8.9NaCl 4 mg iv piggyback 100 mL (ZOMETA) [...] W IVCON DIAGNOSTIC COMPUTED TOMOGRAPHY THORAX W/CONTRAST Cote, [place], VE TEACHER.CLIENT REPORTING ASSOCIATE [address] [place] [address] Ct Imaging Referral ID Status Reason Start Date Expiration Date Visits Requested Visits Authorized [id number] Authorized Auto-Generat ed Referral 10/21/2021 11/20/2022 1 [...] CT ABD & PELVIS W/CONTRAST Caity Cote, VE TEACHER.CLIENT REPORTING ASSOCIATE [address] [place] [address] Ct Imaging Referral ID Status Reason Start Date Expiration Date Visits Requested Visits Authorized [id number] Authorized Auto-Generat ed Referral 10/21/2021 11/20/2022 1 1 Specialty Diagnoses / Procedures Referred By Contac t Referred [facility] Diagnoses Malignant neoplasm of lower-inner quadrant of right breast of female, estrogen receptor positive (HCC) Bone metastases (HCC) Skin, 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) Procedures ECHO ECHO TTHRC R-T 2D W/WOM-MODE COMPL SPEC&COLR D Caity Cote, VE TEACHER.CLIENT REPORTING ASSOCIATE [address] [place] [address] [facility] [address] [place] [address] Referral ID Status Reason Start Date Expiration Date Visits Requested Visits Authorized [id number] Pending Review Auto-Generat ed Referral 10/21/2021 10/21/2022 1 1 Referral ID Status Reason Start Date Expiration Date V isits Requested Visits Authorized [id number] Closed Auto-Generate d Referral 10/21/2021 11/20/2022 1 1 Referral ID Status Reason Start Date Expiration Date V isits Requested Visits Authorized [id number] Closed Auto-Generate d Referral 10/21/2021 11/20/2022 1 1 Specialty Diagnoses / Procedures Referred By Contac t Referred To Contact CT IMAGING Diagnoses Malignant neoplasm of lower-inner quadrant of right breast of female, estrogen receptor positive (HCC) Bone metastases (HCC) Malignant neoplasm metastatic to both lungs (HCC) Skin, 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) Procedures CT CHEST W IVCON DIAGNOSTIC COMPUTED TOMOGRAPHY THORAX W/CONTRAST Caity Cote, EREN.CLIENT REPORTING ASSOCIATE [address] [place] [address] Ct Imaging Referral ID Status Reason Start Date Expiration Date Visits Requested Visits Authorized [id number] Authorized Auto-Generat ed Referral 12/23/2021 01/22/2023 1 1 Specialty Diagnoses / Procedures Referred By Contac t Referred To Contact CT IMAGING Diagnoses Malignant neoplasm of lower-inner quadrant of right breast of female, estrogen receptor positive (HCC) Bone metastases (HCC) Malignant neoplasm metastatic to both lungs (HCC) Skin, 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) Procedures CT ABD/PEL W IVCON CT ABD & PELVIS W/CONTRAST Caity Cote, VE TEACHER.CLIENT REPORTING ASSOCIATE [address] [place] [address] Ct Imaging Referral ID Status Reason Start Date Expiration Date Visits Requested Visits Authorized [id number] Authorized Auto-Generat ed Referral 12/23/2021 01/22/2023 1 1 Referral ID Status Reason Start Date Expiration Date V isits Requested Visits Authorized [id number] Closed Auto-Generate d Referral 12/23/2021 01/22/2023 1 1 Referral ID Status Reason Start Date Expiration Date V isits Requested Visits Authorized [id number] Closed Auto-Generate d Referral 12/23/2021 01/22/2023 1 1 Specialty Diagnoses / Procedures Referred By Contac t Referred To Contact CT IMAGING Diagnoses Malignant neoplasm of lower-inner quadrant of right breast of female, estrogen receptor positive (HCC) Bone metastases (HCC) Malignant neoplasm metastatic to both lungs (HCC) Procedures CT CHEST W IVCON DIAGNOSTIC COMPUTED TOMOGRAPHY THORAX W/CONTRAST Rip Rivers DO [address] [place] [address] Ct Imaging Referral ID Status Reason Start Date Expiration Date Visits Requested Visits Authorized [id number] Authorized Auto-Generat ed Referral 07/06/2022 08/05/2023 1 1 Specialty Diagnoses / Procedures Referred By Contac t Referred To Contact CT IMAGING Diagnoses Malignant neoplasm of lower-inner quadrant of right breast of female, estrogen receptor positive (HCC) Bone metastases (HCC) Malignant neoplasm metastatic to both lungs (HCC) Procedures CT ABD/PEL W IVCON CT ABD & PELVIS W/CONTRAST Rip Rivers, [address] [place] [address] Ct Imaging Referral ID Status Reason Start Date Expiration Date Visits Requested Visits Authorized [id number] Authorized Auto-Generat ed Referral 07/06/2022 08/05/2023 1 1 Specialty Diagnoses / Procedures Referred By Contac t Referred To Contact [facility] Diagnoses Encounter for screening mammogram for malignant neoplasm of breast Procedures MAXIM SCREENING W OMI SCREENING DIGITAL BREAST TOMOSYNTHESIS BI SCREENING MAMMOGRAPHY BI 2-VIEW BREAST INC CAD Rip Rivers, DO [address] [place] [address] [facility] [address] [place] [address] Referral ID Status Reason Start Date Expiration Date Visits Requested Visits Authorized [id number] Authorized Auto-Generat ed Referral 07/06/2022 08/05/2023 1 1 Referral ID Status Reason Start Date Expiration Date Visits Requested Visits Authorized [id number] Pending Review Auto-Generat ed Referral 07/30/2022 08/29/2023 1 1 Referral ID Status Reason Start Date Expiration Date Visits Requested Visits Authorized [id number] Pending Review Auto-Generat ed Referral 07/30/2022 08/29/2023 1 1 Specialty Diagnoses / Procedures Referred By Contac t Referred To Contact Diagnoses Malignant neoplasm metastatic to left lung (HCC) Procedures CT SIM PLANNING RADIATION ONCOLOGY THER RAD SIMULAJ-AIDED FIELD SETTING COMPLEX Meenu Garay MD, [address] [place] [address] Referral ID Status Reason Start Date Expiration Date Visits Requested Visits Authorized [id number] Pending Review PCP Requested Referral 02/09/2023 05/09/2023 1 1 Specialty Diagnoses / Procedures Referred By Contac t Referred To Contact CT IMAGING Diagnoses Malignant neoplasm metastatic to bone (HCC) Procedures CT CHEST WO IVCON DIAGNOSTIC COMPUTED TOMOGRAPHY THORAX W/O CNTRST Rip Rivers DO [address] [place] [address] [place] [address] Referral ID Status Reason Start Date Expiration Date Visits Requested Visits Authorized [id number] Authorized Auto-Generat ed Referral 02/23/2023 03/24/2024 1 1 Specialty Diagnoses / Procedures Referred By Contac t Referred To Contact CT IMAGING Diagnoses Malignant neoplasm metastatic to left lung (HCC) Procedures CT CHEST WO IVCON DIAGNOSTIC COMPUTED TOMOGRAPHY THORAX W/O CNTRST Meenu Garay MD, [address] [place] [id number] Ct Imaging [id number] Referral ID Status Reason Start Date Expiration Date Visits Requested Visits Authorized [id number] Authorized Auto-Generat ed Referral 04/28/2024 1 1 Referral ID Status Reason Start Date Expiration Date V isits Requested Visits Authorized [id number] Closed Auto-Generate d Referral 02/23/2023 03/24/2024 1 1 Specialty Diagnoses / Procedures Referred By Contac t Referred To Contact CT IMAGING Diagnoses Malignant neoplasm of lower-inner quadrant of right breast of female, estrogen receptor positive (HCC) Bone metastases Malignant neoplasm metastatic to both lungs (HCC) Procedures CT CHEST W IVCON DIAGNOSTIC COMPUTED TOMOGRAPHY THORAX W/CONTRAST Rip Rivers, DO [address] [place] [address] [place] [address] Referral ID Status Reason Start Date Expiration Date V isits Requested Visits Authorized [id number] Closed Auto-Generate d Referral 07/30/2022 08/29/2023 1 1 Specialty Diagnoses / Procedures Referred By Contac t Referred To Contact CT IMAGING Diagnoses Malignant neoplasm of lower-inner quadrant of right breast of female, estrogen receptor positive (HCC) Bone metastases Malignant neoplasm metastatic to both lungs (HCC) Procedures CT ABD/PEL W IVCON CT ABD & PELVIS W/CONTRAST Rip Rivers, [address] [place] [address] [place] [address] Referral ID Status Reason Start Date Expiration Date V isits Requested Visits Authorized [id number] Closed Auto-Generate d Referral 07/30/2022 08/29/2023 1 [...] THORAX W/CONTRAST Rip Rivers, DO [address] [place] [address] [place] [address] Referral ID Status Reason Start Date Expiration Date V isits Requested Visits Authorized [id number] Closed Auto-Generate d Referral 12/22/2022 01/21/2024 1 [...] PELVIS W/CONTRAST Rip Rivers, DO [address] [place] [address] [place] [address] Referral ID Status Reason Start Date Expiration Date V isits Requested Visits Authorized [id number] Closed Auto-Generate d Referral 12/22/2022 01/21/2024 1 1 Referral ID Status Reason Start Date Expiration Date V isits Requested Visits Authorized [id number] Closed Auto-Generate d Referral 07/06/2022 08/05/2023 1 1 Referral ID Status Reason Start Date Expiration Date V isits Requested Visits Authorized [id number] Closed Auto-Generate d Referral 07/06/2022 08/05/2023 1 1 Specialty Diagnoses / Procedures Referred By Contac t Referred To Contact CT IMAGING Diagnoses Malignant neoplasm of lower-inner quadrant of right breast of female, estrogen receptor positive (HCC) Bone metastases Procedures CT CHEST W IVCON DIAGNOSTIC COMPUTED TOMOGRAPHY THORAX W/CONTRAST Caity Cote APRN.CLIENT REPORTING ASSOCIATE [address] [place] [address] [place] [address] Referral ID Status Reason Start Date Expiration Date V isits Requested Visits Authorized [id number] Closed Auto-Generate d Referral 04/14/2022 05/14/2023 1 1 Specialty Diagnoses / Procedures Referred By Contac t Referred To Contact CT IMAGING Diagnoses Malignant neoplasm of lower-inner quadrant of right breast of female, estrogen receptor positive (HCC) Bone metastases Procedures CT ABD/PEL W IVCON CT ABD & PELVIS W/CONTRAST Caity Cote APRN.CLIENT REPORTING ASSOCIATE [address] [place] [address] [place] [address] Referral ID Status Reason Start Date Expiration Date V isits Requested Visits Authorized [id number] Closed Auto-Generate d Referral 04/14/2022 05/14/2023 1 1 Specialty Diagnoses / Procedures Referred By Contac t Referred To Contact Diagnoses Secondary malignant neoplasm of right lung (HCC) Procedures CT SIM PLANNING RADIATION ONCOLOGY THER RAD SIMULAJ-AIDED FIELD SETTING COMPLEX Meenu Garay MD [address] [place] [address] Referral ID Status Reason Start Date Expiration Date Visits Requested Visits Authorized [id number] Pending Review PCP Requested Referral 09/27/2023 12/11/2023 1 1 Specialty Diagnoses / Procedures Referred By Contac t Referred To Contact CT IMAGING Diagnoses Secondary malignant neoplasm of right lung (HCC) Procedures CT CHEST WO IVCON DIAGNOSTIC COMPUTED TOMOGRAPHY THORAX W/O CNTRST Meenu Garay MD [address] [facility] [place] [address] [place] [address] Referral ID Status Reason Start Date Expiration Date Visits Requested Visits Authorized [id number] Pending Review Auto-Generat ed Referral 01/11/2024 11/26/2024 [...] DIAGNOSTIC COMPUTED TOMOGRAPHY THORAX W/CONTRAST Caity Cote, EREN.CLIENT REPORTING ASSOCIATE [address] [place] [address] [place] [address] Referral ID Status Reason Start Date Expiration Date Visits Requested Visits Authorized [id number] Authorized Auto-Generat ed Referral 12/14/2023 01/12/2025 1 [...] CT ABD & PELVIS W/CONTRAST Caity Cote APRN.CLIENT REPORTING ASSOCIATE [address] [place] [address] [place] [address] Referral ID Status Reason Start Date Expiration Date Visits Requested Visits Authorized [id number] Authorized Auto-Generat ed Referral 12/14/2023 01/12/2025 1 1 Specialty Diagnoses / Procedures Referred By Contac t Referred To Contact CT IMAGING Diagnoses Malignant neoplasm of lower-inner quadrant of right breast of female, estrogen receptor positive (HCC) Orthopnea Interstitial pulmonary disease (HCC) Procedures CT CHEST WO IVCON DIAGNOSTIC COMPUTED TOMOGRAPHY THORAX W/O CNTRST Rip Rivers, DO [address] [facility] [place] [address] [place] [address] Referral ID Status Reason Start Date Expiration Date V isits Requested Visits Authorized [id number] Closed Auto-Generate d Referral 01/04/2024 02/02/2025 1 [...] THORAX W/CONTRAST Rip Rivers, DO [address] [facility] [place] [address] [place] [address] Referral ID Status Reason Start Date Expiration Date Visits Requested Visits Authorized [id number] New Request Auto-Generat ed Referral 4 04/20/2025 1 1 Specialty Diagnoses / Procedures Referred By Carmen moore Referred To Contact CT IMAGING Diagnoses Malignant neoplasm of lower-inner quadrant of right breast of female, estrogen receptor positive (HCC) Malignant neoplasm metastatic to bone (HCC) Malignant neoplasm metastatic to both lungs (HCC) Procedures CT ABD/PEL W IVCON CT ABD & PELVIS W/CONTRAST Rip Rivers, DO [address] [place] [address] [place] [address] Referral ID Status Reason Start Date Expiration Date Visits Requested Visits Authorized [id number] New Request Auto-Generat ed Referral 4 04/20/2025 [...] Other care home (current) drug therapy A 2024 1:41pm Chief Complaint Admit Date 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In the event this information is protected by the Federal Confidentiality of Alcohol and Drug Abuse Patient Records regulations: The Federal rules restrict any use of the information to criminally investigate or prosecute any alcohol or drug abuse patient.[facility] HospitalIn the event this information is protected by the Federal Confidentiality of Alcohol and Drug Abuse Patient Records regulations: The Federal rules restrict any use of the information to criminally investigate or prosecute any alcohol or drug abuse patient.[facility] HospitalIn the event this information is protected by the Federal Confidentiality of Alcohol and Drug Abuse Patient Records regulations: The Federal rules restrict any use of the information to criminally investigate or prosecute any alcohol or drug abuse patient.[facility] HospitalIn the event this information is protected by the Federal Confidentiality of Alcohol and Drug Abuse Patient Records regulations: The Federal rules restrict any use of the information to criminally investigate or prosecute any alcohol or drug abuse patient.[facility] HospitalIn the event this information is protected by the Federal Confidentiality of Alcohol and Drug Abuse Patient Records regulations: The Federal rules restrict any use of the information to criminally investigate or prosecute any alcohol or drug abuse patient.[facility] HospitalIn the event this information is protected by the Federal Confidentiality of Alcohol and Drug Abuse Patient Records regulations: The Federal rules restrict any use of the information to criminally investigate or prosecute any alcohol or drug abuse patient.[facility] HospitalIn the event this information is protected by the Federal Confidentiality of Alcohol and Drug Abuse Patient Records regulations: The Federal rules restrict any use of the information to criminally investigate or prosecute any alcohol or drug abuse patient.[facility] HospitalIn the event this information is protected by the Federal Confidentiality of Alcohol and Drug Abuse Patient Records regulations: The Federal rules restrict any use of the information to criminally investigate or prosecute any alcohol or drug abuse patient.[facility] HospitalIn the event this information is protected by the Federal Confidentiality of Alcohol and Drug Abuse Patient Records regulations: The Federal rules restrict any use of the information to criminally investigate or prosecute any alcohol or drug abuse patient.[facility] HospitalIn the event this information is protected by the Federal Confidentiality of Alcohol and Drug Abuse Patient Records regulations: The Federal rules restrict any use of the information to criminally investigate or prosecute any alcohol or drug abuse patient.[facility] HospitalIn the event this information is protected by the Federal Confidentiality of Alcohol and Drug Abuse Patient Records regulations: The Federal rules restrict any use of the information to criminally investigate or prosecute any alcohol or drug abuse patient.[facility] HospitalIn the event this information is protected by the Federal Confidentiality of Alcohol and Drug Abuse Patient Records regulations: The Federal rules restrict any use of the information to criminally investigate or prosecute any alcohol or drug abuse patient.[facility] HospitalIn the event this information is protected by the Federal Confidentiality of Alcohol and Drug Abuse Patient Records regulations: The Federal rules restrict any use of the information to criminally investigate or prosecute any alcohol or drug abuse patient.[facility] HospitalIn the event this information is protected by the Federal Confidentiality of Alcohol and Drug Abuse Patient Records regulations: The Federal rules restrict any use of the information to criminally investigate or prosecute any alcohol or drug abuse patient.[facility] HospitalIn the event this information is protected by the Federal Confidentiality of Alcohol and Drug Abuse Patient Records regulations: The Federal rules restrict any use of the information to criminally investigate or prosecute any alcohol or drug abuse patient.[facility] HospitalIn the event this information is protected by the Federal Confidentiality of Alcohol and Drug Abuse Patient Records regulations: The Federal rules restrict any use of the information to criminally investigate or prosecute any alcohol or drug abuse patient.[facility] HospitalIn the event this information is protected by the Federal Confidentiality of Alcohol and Drug Abuse Patient Records regulations: The Federal rules restrict any use of the information to criminally investigate or prosecute any alcohol or drug abuse patient.[facility] HospitalIn the event this information is protected by the Federal Confidentiality of Alcohol and Drug Abuse Patient Records regulations: The Federal rules restrict any use of the information to criminally investigate or prosecute any alcohol or drug abuse patient.[facility] HospitalIn the event this information is protected by the Federal Confidentiality of Alcohol and Drug Abuse Patient Records regulations: The Federal rules restrict any use of the information to criminally investigate or prosecute any alcohol or drug abuse patient.[facility] HospitalIn the event this information is protected by the Federal Confidentiality of Alcohol and Drug Abuse Patient Records regulations: The Federal rules restrict any use of the information to criminally investigate or prosecute any alcohol or drug abuse patient.[facility] HospitalIn the event this information is protected by the Federal Confidentiality of Alcohol and Drug Abuse Patient Records regulations: The Federal rules restrict any use of the information to criminally investigate or prosecute any alcohol or drug abuse patient.[facility] HospitalIn the event this information is protected by the Federal Confidentiality of Alcohol and Drug Abuse Patient Records regulations: The Federal rules restrict any use of the information to criminally investigate or prosecute any alcohol or drug abuse patient.[facility] HospitalIn the event this information is protected by the Federal Confidentiality of Alcohol and Drug Abuse Patient Records regulations: The Federal rules restrict any use of the information to criminally investigate or prosecute any alcohol or drug abuse patient.[facility] HospitalIn the event this information is protected by the Federal Confidentiality of Alcohol and Drug Abuse Patient Records regulations: The Federal rules restrict any use of the information to criminally investigate or prosecute any alcohol or drug abuse patient.[facility] HospitalIn the event this information is protected by the Federal Confidentiality of Alcohol and Drug Abuse Patient Records regulations: The Federal rules restrict any use of the information to criminally investigate or prosecute any alcohol or drug abuse patient.[facility] HospitalIn the event this information is protected by the Federal Confidentiality of Alcohol and Drug Abuse Patient Records regulations: The Federal rules restrict any use of the information to criminally investigate or prosecute any alcohol or drug abuse patient.[facility] HospitalIn the event this information is protected by the Federal Confidentiality of Alcohol and Drug Abuse Patient Records regulations: The Federal rules restrict any use of the information to criminally investigate or prosecute any alcohol or drug abuse patient.[facility] HospitalIn the event this information is protected by the Federal Confidentiality of Alcohol and Drug Abuse Patient Records regulations: The Federal rules restrict any use of the information to criminally investigate or prosecute any alcohol or drug abuse patient.[facility] HospitalIn the event this information is protected by the Federal Confidentiality of Alcohol and Drug Abuse Patient Records regulations: The Federal rules restrict any use of the information to criminally investigate or prosecute any alcohol or drug abuse patient.[facility] HospitalIn the event this information is protected by the Federal Confidentiality of Alcohol and Drug Abuse Patient Records regulations: The Federal rules restrict any use of the information to criminally investigate or prosecute any alcohol or drug abuse patient.[facility] HospitalIn the event this information is protected by the Federal Confidentiality of Alcohol and Drug Abuse Patient Records regulations: The Federal rules restrict any use of the information to criminally investigate or prosecute any alcohol or drug abuse patient.[facility] HospitalIn the event this information is protected by the Federal Confidentiality of Alcohol and Drug Abuse Patient Records regulations: The Federal rules restrict any use of the information to criminally investigate or prosecute any alcohol or drug abuse patient.[facility] HospitalIn the event this information is protected by the Federal Confidentiality of Alcohol and Drug Abuse Patient Records regulations: The Federal rules restrict any use of the information to criminally investigate or prosecute any alcohol or drug abuse patient.[facility] HospitalIn the event this information is protected by the Federal Confidentiality of Alcohol and Drug Abuse Patient Records regulations: The Federal rules restrict any use of the information to criminally investigate or prosecute any alcohol or drug abuse patient.[facility] HospitalIn the event this information is protected by the Federal Confidentiality of Alcohol and Drug Abuse Patient Records regulations: The Federal rules restrict any use of the information to criminally investigate or prosecute any alcohol or drug abuse patient.[facility] HospitalIn the event this information is protected by the Federal Confidentiality of Alcohol and Drug Abuse Patient Records regulations: The Federal rules restrict any use of the information to criminally investigate or prosecute any alcohol or drug abuse patient.[facility] HospitalIn the event this information is protected by the Federal Confidentiality of Alcohol and Drug Abuse Patient Records regulations: The Federal rules restrict any use of the information to criminally investigate or prosecute any alcohol or drug abuse patient.[facility] HospitalIn the event this information is protected by the Federal Confidentiality of Alcohol and Drug Abuse Patient Records regulations: The Federal rules restrict any use of the information to criminally investigate or prosecute any alcohol or drug abuse patient.[facility] HospitalIn the event this information is protected by the Federal Confidentiality of Alcohol and Drug Abuse Patient Records regulations: The Federal rules restrict any use of the information to criminally investigate or prosecute any alcohol or drug abuse patient.[facility] HospitalIn the event this information is protected by the Federal Confidentiality of Alcohol and Drug Abuse Patient Records regulations: The Federal rules restrict any use of the information to criminally investigate or prosecute any alcohol or drug abuse patient.[facility] HospitalIn the event this information is protected by the Federal Confidentiality of Alcohol and Drug Abuse Patient Records regulations: The Federal rules restrict any use of the information to criminally investigate or prosecute any alcohol or drug abuse patient.[facility] HospitalIn the event this information is protected by the Federal Confidentiality of Alcohol and Drug Abuse Patient Records regulations: The Federal rules restrict any use of the information to criminally investigate or prosecute any alcohol or drug abuse patient.[facility] HospitalIn the event this information is protected by the Federal Confidentiality of Alcohol and Drug Abuse Patient Records regulations: The Federal rules restrict any use of the information to criminally investigate or prosecute any alcohol or drug abuse patient.[facility] HospitalIn the event this information is protected by the Federal Confidentiality of Alcohol and Drug Abuse Patient Records regulations: The Federal rules restrict any use of the information to criminally investigate or prosecute any alcohol or drug abuse patient.[facility] HospitalIn the event this information is protected by the Federal Confidentiality of Alcohol and Drug Abuse Patient Records regulations: The Federal rules restrict any use of the information to criminally investigate or prosecute any alcohol or drug abuse patient.[facility] HospitalIn the event this information is protected by the Federal Confidentiality of Alcohol and Drug Abuse Patient Records regulations: The Federal rules restrict any use of the information to criminally investigate or prosecute any alcohol or drug abuse patient.[facility] HospitalIn the event this information is protected by the Federal Confidentiality of Alcohol and Drug Abuse Patient Records regulations: The Federal rules restrict any use of the information to criminally investigate or prosecute any alcohol or drug abuse patient.[facility] HospitalIn the event this information is protected by the Federal Confidentiality of Alcohol and Drug Abuse Patient Records regulations: The Federal rules restrict any use of the information to criminally investigate or prosecute any alcohol or drug abuse patient.[facility] HospitalIn the event this information is protected by the Federal Confidentiality of Alcohol and Drug Abuse Patient Records regulations: The Federal rules restrict any use of the information to criminally investigate or prosecute any alcohol or drug abuse patient.[facility] HospitalIn the event this information is protected by the Federal Confidentiality of Alcohol and Drug Abuse Patient Records regulations: The Federal rules restrict any use of the information to criminally investigate or prosecute any alcohol or drug abuse patient.[facility] HospitalIn the event this information is protected by the Federal Confidentiality of Alcohol and Drug Abuse Patient Records regulations: The Federal rules restrict any use of the information to criminally investigate or prosecute any alcohol or drug abuse patient.[facility] HospitalIn the event this information is protected by the Federal Confidentiality of Alcohol and Drug Abuse Patient Records regulations: The Federal rules restrict any use of the information to criminally investigate or prosecute any alcohol or drug abuse patient.[facility] HospitalIn the event this information is protected by the Federal Confidentiality of Alcohol and Drug Abuse Patient Records regulations: The Federal rules restrict any use of the information to criminally investigate or prosecute any alcohol or drug abuse patient.[facility] HospitalIn the event this information is protected by the Federal Confidentiality of Alcohol and Drug Abuse Patient Records regulations: The Federal rules restrict any use of the information to criminally investigate or prosecute any alcohol or drug abuse patient.[facility] HospitalIn the event this information is protected by the Federal Confidentiality of Alcohol and Drug Abuse Patient Records regulations: The Federal rules restrict any use of the information to criminally investigate or prosecute any alcohol or drug abuse patient.[facility] HospitalIn the event this information is protected by the Federal Confidentiality of Alcohol and Drug Abuse Patient Records regulations: The Federal rules restrict any use of the information to criminally investigate or prosecute any alcohol or drug abuse patient.[facility] HospitalIn the event this information is protected by the Federal Confidentiality of Alcohol and Drug Abuse Patient Records regulations: The Federal rules restrict any use of the information to criminally investigate or prosecute any alcohol or drug abuse patient.[facility] HospitalIn the event this information is protected by the Federal Confidentiality of Alcohol and Drug Abuse Patient Records regulations: The Federal rules restrict any use of the information to criminally investigate or prosecute any alcohol or drug abuse patient.[facility] HospitalIn the event this information is protected by the Federal Confidentiality of Alcohol and Drug Abuse Patient Records regulations: The Federal rules restrict any use of the information to criminally investigate or prosecute any alcohol or drug abuse patient.[facility] HospitalIn the event this information is protected by the Federal Confidentiality of Alcohol and Drug Abuse Patient Records regulations: The Federal rules restrict any use of the information to criminally investigate or prosecute any alcohol or drug abuse patient.[facility] HospitalIn the event this information is protected by the Federal Confidentiality of Alcohol and Drug Abuse Patient Records regulations: The Federal rules restrict any use of the information to criminally investigate or prosecute any alcohol or drug abuse patient.[facility] HospitalIn the event this information is protected by the Federal Confidentiality of Alcohol and Drug Abuse Patient Records regulations: The Federal rules restrict any use of the information to criminally investigate or prosecute any alcohol or drug abuse patient.[facility] HospitalIn the event this information is protected by the Federal Confidentiality of Alcohol and Drug Abuse Patient Records regulations: The Federal rules restrict any use of the information to criminally investigate or prosecute any alcohol or drug abuse patient.[facility] HospitalIn the event this information is protected by the Federal Confidentiality of Alcohol and Drug Abuse Patient Records regulations: The Federal rules restrict any use of the information to criminally investigate or prosecute any alcohol or drug abuse patient.[facility] HospitalIn the event this information is protected by the Federal Confidentiality of Alcohol and Drug Abuse Patient Records regulations: The Federal rules restrict any use of the information to criminally investigate or prosecute any alcohol or drug abuse patient.[facility] HospitalIn the event this information is protected by the Federal Confidentiality of Alcohol and Drug Abuse Patient Records regulations: The Federal rules restrict any use of the information to criminally investigate or prosecute any alcohol or drug abuse patient.[facility] HospitalIn the event this information is protected by the Federal Confidentiality of Alcohol and Drug Abuse Patient Records regulations: The Federal rules restrict any use of the information to criminally investigate or prosecute any alcohol or drug abuse patient.[facility] HospitalIn the event this information is protected by the Federal Confidentiality of Alcohol and Drug Abuse Patient Records regulations: The Federal rules restrict any use of the information to criminally investigate or prosecute any alcohol or drug abuse patient.[facility] HospitalIn the event this information is protected by the Federal Confidentiality of Alcohol and Drug Abuse Patient Records regulations: The Federal rules restrict any use of the information to criminally investigate or prosecute any alcohol or drug abuse patient.[facility] HospitalIn the event this information is protected by the Federal Confidentiality of Alcohol and Drug Abuse Patient Records regulations: The Federal rules restrict any use of the information to criminally investigate or prosecute any alcohol or drug abuse patient.[facility] HospitalIn the event this information is protected by the Federal Confidentiality of Alcohol and Drug Abuse Patient Records regulations: The Federal rules restrict any use of the information to criminally investigate or prosecute any alcohol or drug abuse patient.[facility] HospitalIn the event this information is protected by the Federal Confidentiality of Alcohol and Drug Abuse Patient Records regulations: The Federal rules restrict any use of the information to criminally investigate or prosecute any alcohol or drug abuse patient.[facility] HospitalIn the event this information is protected by the Federal Confidentiality of Alcohol and Drug Abuse Patient Records regulations: The Federal rules restrict any use of the information to criminally investigate or prosecute any alcohol or drug abuse patient.[facility] HospitalIn the event this information is protected by the Federal Confidentiality of Alcohol and Drug Abuse Patient Records regulations: The Federal rules restrict any use of the information to criminally investigate or prosecute any alcohol or drug abuse patient.[facility] HospitalIn the event this information is protected by the Federal Confidentiality of Alcohol and Drug Abuse Patient Records regulations: The Federal rules restrict any use of the information to criminally investigate or prosecute any alcohol or drug abuse patient.[facility] HospitalIn the event this information is protected by the Federal Confidentiality of Alcohol and Drug Abuse Patient Records regulations: The Federal rules restrict any use of the information to criminally investigate or prosecute any alcohol or drug abuse patient.[facility] HospitalIn the event this information is protected by the Federal Confidentiality of Alcohol and Drug Abuse Patient Records regulations: The Federal rules restrict any use of the information to criminally investigate or prosecute any alcohol or drug abuse patient.[facility] HospitalIn the event this information is protected by the Federal Confidentiality of Alcohol and Drug Abuse Patient Records regulations: The Federal rules restrict any use of the information to criminally investigate or prosecute any alcohol or drug abuse patient.[facility] HospitalIn the event this information is protected by the Federal Confidentiality of Alcohol and Drug Abuse Patient Records regulations: The Federal rules restrict any use of the information to criminally investigate or prosecute any alcohol or drug abuse patient.[facility] HospitalIn the event this information is protected by the Federal Confidentiality of Alcohol and Drug Abuse Patient Records regulations: The Federal rules restrict any use of the information to criminally investigate or prosecute any alcohol or drug abuse patient.[facility] HospitalIn the event this information is protected by the Federal Confidentiality of Alcohol and Drug Abuse Patient Records regulations: The Federal rules restrict any use of the information to criminally investigate or prosecute any alcohol or drug abuse patient.[facility] HospitalIn the event this information is protected by the Federal Confidentiality of Alcohol and Drug Abuse Patient Records regulations: The Federal rules restrict any use of the information to criminally investigate or prosecute any alcohol or drug abuse patient.[facility] HospitalIn the event this information is protected by the Federal Confidentiality of Alcohol and Drug Abuse Patient Records regulations: The Federal rules restrict any use of the information to criminally investigate or prosecute any alcohol or drug abuse patient.[facility] HospitalIn the event this information is protected by the Federal Confidentiality of Alcohol and Drug Abuse Patient Records regulations: The Federal rules restrict any use of the information to criminally investigate or prosecute any alcohol or drug abuse patient.[facility] HospitalIn the event this information is protected by the Federal Confidentiality of Alcohol and Drug Abuse Patient Records regulations: The Federal rules restrict any use of the information to criminally investigate or prosecute any alcohol or drug abuse patient.[facility] HospitalIn the event this information is protected by the Federal Confidentiality of Alcohol and Drug Abuse Patient Records regulations: The Federal rules restrict any use of the information to criminally investigate or prosecute any alcohol or drug abuse patient.[facility] HospitalIn the event this information is protected by the Federal Confidentiality of Alcohol and Drug Abuse Patient Records regulations: The Federal rules restrict any use of the information to criminally investigate or prosecute any alcohol or drug abuse patient.[facility] HospitalIn the event this information is protected by the Federal Confidentiality of Alcohol and Drug Abuse Patient Records regulations: The Federal rules restrict any use of the information to criminally investigate or prosecute any alcohol or drug abuse patient.[facility] HospitalIn the event this information is protected by the Federal Confidentiality of Alcohol and Drug Abuse Patient Records regulations: The Federal rules restrict any use of the information to criminally investigate or prosecute any alcohol or drug abuse patient.[facility] HospitalIn the event this information is protected by the Federal Confidentiality of Alcohol and Drug Abuse Patient Records regulations: The Federal rules restrict any use of the information to criminally investigate or prosecute any alcohol or drug abuse patient.[facility] HospitalIn the event this information is protected by the Federal Confidentiality of Alcohol and Drug Abuse Patient Records regulations: The Federal rules restrict any use of the information to criminally investigate or prosecute any alcohol or drug abuse patient.[facility] HospitalIn the event this information is protected by the Federal Confidentiality of Alcohol and Drug Abuse Patient Records regulations: The Federal rules restrict any use of the information to criminally investigate or prosecute any alcohol or drug abuse patient.[facility] HospitalIn the event this information is protected by the Federal Confidentiality of Alcohol and Drug Abuse Patient Records regulations: The Federal rules restrict any use of the information to criminally investigate or prosecute any alcohol or drug abuse patient.[facility] HospitalIn the event this information is protected by the Federal Confidentiality of Alcohol and Drug Abuse Patient Records regulations: The Federal rules restrict any use of the information to criminally investigate or prosecute any alcohol or drug abuse patient.[facility] HospitalIn the event this information is protected by the Federal Confidentiality of Alcohol and Drug Abuse Patient Records regulations: The Federal rules restrict any use of the information to criminally investigate or prosecute any alcohol or drug abuse patient.[facility] HospitalIn the event this information is protected by the Federal Confidentiality of Alcohol and Drug Abuse Patient Records regulations: The Federal rules restrict any use of the information to criminally investigate or prosecute any alcohol or drug abuse patient.[facility] HospitalIn the event this information is protected by the Federal Confidentiality of Alcohol and Drug Abuse Patient Records regulations: The Federal rules restrict any use of the information to criminally investigate or prosecute any alcohol or drug abuse patient.[facility] HospitalIn the event this information is protected by the Federal Confidentiality of Alcohol and Drug Abuse Patient Records regulations: The Federal rules restrict any use of the information to criminally investigate or prosecute any alcohol or drug abuse patient.[facility] HospitalIn the event this information is protected by the Federal Confidentiality of Alcohol and Drug Abuse Patient Records regulations: The Federal rules restrict any use of the information to criminally investigate or prosecute any alcohol or drug abuse patient.[facility] HospitalIn the event this information is protected by the Federal Confidentiality of Alcohol and Drug Abuse Patient Records regulations: The Federal rules restrict any use of the information to criminally investigate or prosecute any alcohol or drug abuse patient.[facility] HospitalIn the event this information is protected by the Federal Confidentiality of Alcohol and Drug Abuse Patient Records regulations: The Federal rules restrict any use of the information to criminally investigate or prosecute any alcohol or drug abuse patient.[facility] HospitalIn the event this information is protected by the Federal Confidentiality of Alcohol and Drug Abuse Patient Records regulations: The Federal rules restrict any use of the information to criminally investigate or prosecute any alcohol or drug abuse patient.[facility] HospitalIn the event this information is protected by the Federal Confidentiality of Alcohol and Drug Abuse Patient Records regulations: The Federal rules restrict any use of the information to criminally investigate or prosecute any alcohol or drug abuse patient.[facility] HospitalIn the event this information is protected by the Federal Confidentiality of Alcohol and Drug Abuse Patient Records regulations: The Federal rules restrict any use of the information to criminally investigate or prosecute any alcohol or drug abuse patient.[facility] HospitalIn the event this information is protected by the Federal Confidentiality of Alcohol and Drug Abuse Patient Records regulations: The Federal rules restrict any use of the information to criminally investigate or prosecute any alcohol or drug abuse patient.[facility] HospitalIn the event this information is protected by the Federal Confidentiality of Alcohol and Drug Abuse Patient Records regulations: The Federal rules restrict any use of the information to criminally investigate or prosecute any alcohol or drug abuse patient.[facility] HospitalIn the event this information is protected by the Federal Confidentiality of Alcohol and Drug Abuse Patient Records regulations: The Federal rules restrict any use of the information to criminally investigate or prosecute any alcohol or drug abuse patient.[facility] HospitalIn the event this information is protected by the Federal Confidentiality of Alcohol and Drug Abuse Patient Records regulations: The Federal rules restrict any use of the information to criminally investigate or prosecute any alcohol or drug abuse patient.[facility] HospitalIn the event this information is protected by the Federal Confidentiality of Alcohol and Drug Abuse Patient Records regulations: The Federal rules restrict any use of the information to criminally investigate or prosecute any alcohol or drug abuse patient.[facility] HospitalIn the event this information is protected by the Federal Confidentiality of Alcohol and Drug Abuse Patient Records regulations: The Federal rules restrict any use of the information to criminally investigate or prosecute any alcohol or drug abuse patient.[facility] HospitalIn the event this information is protected by the Federal Confidentiality of Alcohol and Drug Abuse Patient Records regulations: The Federal rules restrict any use of the information to criminally investigate or prosecute any alcohol or drug abuse patient.[facility] HospitalIn the event this information is protected by the Federal Confidentiality of Alcohol and Drug Abuse Patient Records regulations: The Federal rules restrict any use of the information to criminally investigate or prosecute any alcohol or drug abuse patient.[facility] HospitalIn the event this information is protected by the Federal Confidentiality of Alcohol and Drug Abuse Patient Records regulations: The Federal rules restrict any use of the information to criminally investigate or prosecute any alcohol or drug abuse patient.[facility] HospitalIn the event this information is protected by the Federal Confidentiality of Alcohol and Drug Abuse Patient Records regulations: The Federal rules restrict any use of the information to criminally investigate or prosecute any alcohol or drug abuse patient.[facility] HospitalIn the event this information is protected by the Federal Confidentiality of Alcohol and Drug Abuse Patient Records regulations: The Federal rules restrict any use of the information to criminally investigate or prosecute any alcohol or drug abuse patient.[facility] HospitalIn the event this information is protected by the Federal Confidentiality of Alcohol and Drug Abuse Patient Records regulations: The Federal rules restrict any use of the information to criminally investigate or prosecute any alcohol or drug abuse patient.[facility] HospitalIn the event this information is protected by the Federal Confidentiality of Alcohol and Drug Abuse Patient Records regulations: The Federal rules restrict any use of the information to criminally investigate or prosecute any alcohol or drug abuse patient.[facility] HospitalIn the event this information is protected by the Federal Confidentiality of Alcohol and Drug Abuse Patient Records regulations: The Federal rules restrict any use of the information to criminally investigate or prosecute any alcohol or drug abuse patient.[facility] HospitalIn the event this information is protected by the Federal Confidentiality of Alcohol and Drug Abuse Patient Records regulations: The Federal rules restrict any use of the information to criminally investigate or prosecute any alcohol or drug abuse patient.[facility] HospitalIn the event this information is protected by the Federal Confidentiality of Alcohol and Drug Abuse Patient Records regulations: The Federal rules restrict any use of the information to criminally investigate or prosecute any alcohol or drug abuse patient.[facility] HospitalIn the event this information is protected by the Federal Confidentiality of Alcohol and Drug Abuse Patient Records regulations: The Federal rules restrict any use of the information to criminally investigate or prosecute any alcohol or drug abuse patient.[facility] HospitalIn the event this information is protected by the Federal Confidentiality of Alcohol and Drug Abuse Patient Records regulations: The Federal rules restrict any use of the information to criminally investigate or prosecute any alcohol or drug abuse patient.[facility] HospitalIn the event this information is protected by the Federal Confidentiality of Alcohol and Drug Abuse Patient Records regulations: The Federal rules restrict any use of the information to criminally investigate or prosecute any alcohol or drug abuse patient.[facility] HospitalIn the event this information is protected by the Federal Confidentiality of Alcohol and Drug Abuse Patient Records regulations: The Federal rules restrict any use of the information to criminally investigate or prosecute any alcohol or drug abuse patient.[facility] HospitalIn the event this information is protected by the Federal Confidentiality of Alcohol and Drug Abuse Patient Records regulations: The Federal rules restrict any use of the information to criminally investigate or prosecute any alcohol or drug abuse patient.[facility] HospitalIn the event this information is protected by the Federal Confidentiality of Alcohol and Drug Abuse Patient Records regulations: The Federal rules restrict any use of the information to criminally investigate or prosecute any alcohol or drug abuse patient.[facility] HospitalIn the event this information is protected by the Federal Confidentiality of Alcohol and Drug Abuse Patient Records regulations: The Federal rules restrict any use of the information to criminally investigate or prosecute any alcohol or drug abuse patient.[facility] HospitalIn the event this information is protected by the Federal Confidentiality of Alcohol and Drug Abuse Patient Records regulations: The Federal rules restrict any use of the information to criminally investigate or prosecute any alcohol or drug abuse patient.[facility] HospitalIn the event this information is protected by the Federal Confidentiality of Alcohol and Drug Abuse Patient Records regulations: The Federal rules restrict any use of the information to criminally investigate or prosecute any alcohol or drug abuse patient.[facility] HospitalIn the event this information is protected by the Federal Confidentiality of Alcohol and Drug Abuse Patient Records regulations: The Federal rules restrict any use of the information to criminally investigate or prosecute any alcohol or drug abuse patient.[facility] HospitalIn the event this information is protected by the Federal Confidentiality of Alcohol and Drug Abuse Patient Records regulations: The Federal rules restrict any use of the information to criminally investigate or prosecute any alcohol or drug abuse patient.[facility] HospitalIn the event this information is protected by the Federal Confidentiality of Alcohol and Drug Abuse Patient Records regulations: The Federal rules restrict any use of the information to criminally investigate or prosecute any alcohol or drug abuse patient.[facility] HospitalIn the event this information is protected by the Federal Confidentiality of Alcohol and Drug Abuse Patient Records regulations: The Federal rules restrict any use of the information to criminally investigate or prosecute any alcohol or drug abuse patient.[facility] HospitalIn the event this information is protected by the Federal Confidentiality of Alcohol and Drug Abuse Patient Records regulations: The Federal rules restrict any use of the information to criminally investigate or prosecute any alcohol or drug abuse patient.[facility] HospitalIn the event this information is protected by the Federal Confidentiality of Alcohol and Drug Abuse Patient Records regulations: The Federal rules restrict any use of the information to criminally investigate or prosecute any alcohol or drug abuse patient.[facility] HospitalIn the event this information is protected by the Federal Confidentiality of Alcohol and Drug Abuse Patient Records regulations: The Federal rules restrict any use of the information to criminally investigate or prosecute any alcohol or drug abuse patient.[facility] HospitalIn the event this information is protected by the Federal Confidentiality of Alcohol and Drug Abuse Patient Records regulations: The Federal rules restrict any use of the information to criminally investigate or prosecute any alcohol or drug abuse patient.[facility] HospitalIn the event this information is protected by the Federal Confidentiality of Alcohol and Drug Abuse Patient Records regulations: The Federal rules restrict any use of the information to criminally investigate or prosecute any alcohol or drug abuse patient.[facility] HospitalIn the event this information is protected by the Federal Confidentiality of Alcohol and Drug Abuse Patient Records regulations: The Federal rules restrict any use of the information to criminally investigate or prosecute any alcohol or drug abuse patient.[facility] HospitalIn the event this information is protected by the Federal Confidentiality of Alcohol and Drug Abuse Patient Records regulations: The Federal rules restrict any use of the information to criminally investigate or prosecute any alcohol or drug abuse patient.[facility] HospitalIn the event this information is protected by the Federal Confidentiality of Alcohol and Drug Abuse Patient Records regulations: The Federal rules restrict any use of the information to criminally investigate or prosecute any alcohol or drug abuse patient.[facility] HospitalIn the event this information is protected by the Federal Confidentiality of Alcohol and Drug Abuse Patient Records regulations: The Federal rules restrict any use of the information to criminally investigate or prosecute any alcohol or drug abuse patient.[facility] HospitalIn the event this information is protected by the Federal Confidentiality of Alcohol and Drug Abuse Patient Records regulations: The Federal rules restrict any use of the information to criminally investigate or prosecute any alcohol or drug abuse patient.[facility] HospitalIn the event this information is protected by the Federal Confidentiality of Alcohol and Drug Abuse Patient Records regulations: The Federal rules restrict any use of the information to criminally investigate or prosecute any alcohol or drug abuse patient.[facility] HospitalIn the event this information is protected by the Federal Confidentiality of Alcohol and Drug Abuse Patient Records regulations: The Federal rules restrict any use of the information to criminally investigate or prosecute any alcohol or drug abuse patient.[facility] HospitalIn the event this information is protected by the Federal Confidentiality of Alcohol and Drug Abuse Patient Records regulations: The Federal rules restrict any use of the information to criminally investigate or prosecute any alcohol or drug abuse patient.[facility] HospitalIn the event this information is protected by the Federal Confidentiality of Alcohol and Drug Abuse Patient Records regulations: The Federal rules restrict any use of the information to criminally investigate or prosecute any alcohol or drug abuse patient.[facility] HospitalIn the event this information is protected by the Federal Confidentiality of Alcohol and Drug Abuse Patient Records regulations: The Federal rules restrict any use of the information to criminally investigate or prosecute any alcohol or drug abuse patient.[facility] HospitalIn the event this information is protected by the Federal Confidentiality of Alcohol and Drug Abuse Patient Records regulations: The Federal rules restrict any use of the information to criminally investigate or prosecute any alcohol or drug abuse patient.[facility] HospitalIn the event this information is protected by the Federal Confidentiality of Alcohol and Drug Abuse Patient Records regulations: The Federal rules restrict any use of the information to criminally investigate or prosecute any alcohol or drug abuse patient.[facility] HospitalIn the event this information is protected by the Federal Confidentiality of Alcohol and Drug Abuse Patient Records regulations: The Federal rules restrict any use of the information to criminally investigate or prosecute any alcohol or drug abuse patient.[facility] HospitalIn the event this information is protected by the Federal Confidentiality of Alcohol and Drug Abuse Patient Records regulations: The Federal rules restrict any use of the information to criminally investigate or prosecute any alcohol or drug abuse patient.[facility] HospitalIn the event this information is protected by the Federal Confidentiality of Alcohol and Drug Abuse Patient Records regulations: The Federal rules restrict any use of the information to criminally investigate or prosecute any alcohol or drug abuse patient.[facility] HospitalIn the event this information is protected by the Federal Confidentiality of Alcohol and Drug Abuse Patient Records regulations: The Federal rules restrict any use of the information to criminally investigate or prosecute any alcohol or drug abuse patient.[facility] HospitalIn the event this information is protected by the Federal Confidentiality of Alcohol and Drug Abuse Patient Records regulations: The Federal rules restrict any use of the information to criminally investigate or prosecute any alcohol or drug abuse patient.[facility] HospitalIn the event this information is protected by the Federal Confidentiality of Alcohol and Drug Abuse Patient Records regulations: The Federal rules restrict any use of the information to criminally investigate or prosecute any alcohol or drug abuse patient.[facility] HospitalIn the event this information is protected by the Federal Confidentiality of Alcohol and Drug Abuse Patient Records regulations: The Federal rules restrict any use of the information to criminally investigate or prosecute any alcohol or drug abuse patient.[facility] HospitalIn the event this information is protected by the Federal Confidentiality of Alcohol and Drug Abuse Patient Records regulations: The Federal rules restrict any use of the information to criminally investigate or prosecute any alcohol or drug abuse patient.[facility] HospitalIn the event this information is protected by the Federal Confidentiality of Alcohol and Drug Abuse Patient Records regulations: The Federal rules restrict any use of the information to criminally investigate or prosecute any alcohol or drug abuse patient.[facility] HospitalIn the event this information is protected by the Federal Confidentiality of Alcohol and Drug Abuse Patient Records regulations: The Federal rules restrict any use of the information to criminally investigate or prosecute any alcohol or drug abuse patient.[facility] HospitalIn the event this information is protected by the Federal Confidentiality of Alcohol and Drug Abuse Patient Records regulations: The Federal rules restrict any use of the information to criminally investigate or prosecute any alcohol or drug abuse patient.[facility] HospitalIn the event this information is protected by the Federal Confidentiality of Alcohol and Drug Abuse Patient Records regulations: The Federal rules restrict any use of the information to criminally investigate or prosecute any alcohol or drug abuse patient.[facility] HospitalIn the event this information is protected by the Federal Confidentiality of Alcohol and Drug Abuse Patient Records regulations: The Federal rules restrict any use of the information to criminally investigate or prosecute any alcohol or drug abuse patient.[facility] HospitalIn the event this information is protected by the Federal Confidentiality of Alcohol and Drug Abuse Patient Records regulations: The Federal rules restrict any use of the information to criminally investigate or prosecute any alcohol or drug abuse patient.[facility] HospitalIn the event this information is protected by the Federal Confidentiality of Alcohol and Drug Abuse Patient Records regulations: The Federal rules restrict any use of the information to criminally investigate or prosecute any alcohol or drug abuse patient.[facility] HospitalIn the event this information is protected by the Federal Confidentiality of Alcohol and Drug Abuse Patient Records regulations: The Federal rules restrict any use of the information to criminally investigate or prosecute any alcohol or drug abuse patient.[facility] HospitalIn the event this information is protected by the Federal Confidentiality of Alcohol and Drug Abuse Patient Records regulations: The Federal rules restrict any use of the information to criminally investigate or prosecute any alcohol or drug abuse patient.[facility] HospitalIn the event this information is protected by the Federal Confidentiality of Alcohol and Drug Abuse Patient Records regulations: The Federal rules restrict any use of the information to criminally investigate or prosecute any alcohol or drug abuse patient.[facility] HospitalIn the event this information is protected by the Federal Confidentiality of Alcohol and Drug Abuse Patient Records regulations: The Federal rules restrict any use of the information to criminally investigate or prosecute any alcohol or drug abuse patient.[facility] HospitalIn the event this information is protected by the Federal Confidentiality of Alcohol and Drug Abuse Patient Records regulations: The Federal rules restrict any use of the information to criminally investigate or prosecute any alcohol or drug abuse patient.[facility] HospitalIn the event this information is protected by the Federal Confidentiality of Alcohol and Drug Abuse Patient Records regulations: The Federal rules restrict any use of the information to criminally investigate or prosecute any alcohol or drug abuse patient.[facility] HospitalIn the event this information is protected by the Federal Confidentiality of Alcohol and Drug Abuse Patient Records regulations: The Federal rules restrict any use of the information to criminally investigate or prosecute any alcohol or drug abuse patient.[facility] HospitalIn the event this information is protected by the Federal Confidentiality of Alcohol and Drug Abuse Patient Records regulations: The Federal rules restrict any use of the information to criminally investigate or prosecute any alcohol or drug abuse patient.[facility] HospitalIn the event this information is protected by the Federal Confidentiality of Alcohol and Drug Abuse Patient Records regulations: The Federal rules restrict any use of the information to criminally investigate or prosecute any alcohol or drug abuse patient.[facility] HospitalIn the event this information is protected by the Federal Confidentiality of Alcohol and Drug Abuse Patient Records regulations: The Federal rules restrict any use of the information to criminally investigate or prosecute any alcohol or drug abuse patient.[facility] HospitalIn the event this information is protected by the Federal Confidentiality of Alcohol and Drug Abuse Patient Records regulations: The Federal rules restrict any use of the information to criminally investigate or prosecute any alcohol or drug abuse patient.[facility] HospitalIn the event this information is protected by the Federal Confidentiality of Alcohol and Drug Abuse Patient Records regulations: The Federal rules restrict any use of the information to criminally investigate or prosecute any alcohol or drug abuse patient.[facility] HospitalIn the event this information is protected by the Federal Confidentiality of Alcohol and Drug Abuse Patient Records regulations: The Federal rules restrict any use of the information to criminally investigate or prosecute any alcohol or drug abuse patient.[facility] HospitalIn the event this information is protected by the Federal Confidentiality of Alcohol and Drug Abuse Patient Records regulations: The Federal rules restrict any use of the information to criminally investigate or prosecute any alcohol or drug abuse patient.[facility] HospitalIn the event this information is protected by the Federal Confidentiality of Alcohol and Drug Abuse Patient Records regulations: The Federal rules restrict any use of the information to criminally investigate or prosecute any alcohol or drug abuse patient.[facility] HospitalIn the event this information is protected by the Federal Confidentiality of Alcohol and Drug Abuse Patient Records regulations: The Federal rules restrict any use of the information to criminally investigate or prosecute any alcohol or drug abuse patient.[facility] HospitalIn the event this information is protected by the Federal Confidentiality of Alcohol and Drug Abuse Patient Records regulations: The Federal rules restrict any use of the information to criminally investigate or prosecute any alcohol or drug abuse patient.[facility] HospitalIn the event this information is protected by the Federal Confidentiality of Alcohol and Drug Abuse Patient Records regulations: The Federal rules restrict any use of the information to criminally investigate or prosecute any alcohol or drug abuse patient.[facility] HospitalIn the event this information is protected by the Federal Confidentiality of Alcohol and Drug Abuse Patient Records regulations: The Federal rules restrict any use of the information to criminally investigate or prosecute any alcohol or drug abuse patient.[facility] HospitalIn the event this information is protected by the Federal Confidentiality of Alcohol and Drug Abuse Patient Records regulations: The Federal rules restrict any use of the information to criminally investigate or prosecute any alcohol or drug abuse patient.[facility] HospitalIn the event this information is protected by the Federal Confidentiality of Alcohol and Drug Abuse Patient Records regulations: The Federal rules restrict any use of the information to criminally investigate or prosecute any alcohol or drug abuse patient.[facility] HospitalIn the event this information is protected by the Federal Confidentiality of Alcohol and Drug Abuse Patient Records regulations: The Federal rules restrict any use of the information to criminally investigate or prosecute any alcohol or drug abuse patient.[facility] HospitalIn the event this information is protected by the Federal Confidentiality of Alcohol and Drug Abuse Patient Records regulations: The Federal rules restrict any use of the information to criminally investigate or prosecute any alcohol or drug abuse patient.[facility] HospitalIn the event this information is protected by the Federal Confidentiality of Alcohol and Drug Abuse Patient Records regulations: The Federal rules restrict any use of the information to criminally investigate or prosecute any alcohol or drug abuse patient.[facility] HospitalIn the event this information is protected by the Federal Confidentiality of Alcohol and Drug Abuse Patient Records regulations: The Federal rules restrict any use of the information to criminally investigate or prosecute any alcohol or drug abuse patient.[facility] HospitalIn the event this information is protected by the Federal Confidentiality of Alcohol and Drug Abuse Patient Records regulations: The Federal rules restrict any use of the information to criminally investigate or prosecute any alcohol or drug abuse patient.[facility] HospitalIn the event this information is protected by the Federal Confidentiality of Alcohol and Drug Abuse Patient Records regulations: The Federal rules restrict any use of the information to criminally investigate or prosecute any alcohol or drug abuse patient.[facility] HospitalIn the event this information is protected by the Federal Confidentiality of Alcohol and Drug Abuse Patient Records regulations: The Federal rules restrict any use of the information to criminally investigate or prosecute any alcohol or drug abuse patient.[facility] HospitalIn the event this information is protected by the Federal Confidentiality of Alcohol and Drug Abuse Patient Records regulations: The Federal rules restrict any use of the information to criminally investigate or prosecute any alcohol or drug abuse patient.[facility] HospitalIn the event this information is protected by the Federal Confidentiality of Alcohol and Drug Abuse Patient Records regulations: The Federal rules restrict any use of the information to criminally investigate or prosecute any alcohol or drug abuse patient.[facility] HospitalIn the event this information is protected by the Federal Confidentiality of Alcohol and Drug Abuse Patient Records regulations: The Federal rules restrict any use of the information to criminally investigate or prosecute any alcohol or drug abuse patient.[facility] HospitalIn the event this information is protected by the Federal Confidentiality of Alcohol and Drug Abuse Patient Records regulations: The Federal rules restrict any use of the information to criminally investigate or prosecute any alcohol or drug abuse patient.[facility] HospitalIn the event this information is protected by the Federal Confidentiality of Alcohol and Drug Abuse Patient Records regulations: The Federal rules restrict any use of the information to criminally investigate or prosecute any alcohol or drug abuse patient.[facility] HospitalIn the event this information is protected by the Federal Confidentiality of Alcohol and Drug Abuse Patient Records regulations: The Federal rules restrict any use of the information to criminally investigate or prosecute any alcohol or drug abuse patient.[facility] HospitalIn the event this information is protected by the Federal Confidentiality of Alcohol and Drug Abuse Patient Records regulations: The Federal rules restrict any use of the information to criminally investigate or prosecute any alcohol or drug abuse patient.[facility] HospitalIn the event this information is protected by the Federal Confidentiality of Alcohol and Drug Abuse Patient Records regulations: The Federal rules restrict any use of the information to criminally investigate or prosecute any alcohol or drug abuse patient.[facility] HospitalIn the event this information is protected by the Federal Confidentiality of Alcohol and Drug Abuse Patient Records regulations: The Federal rules restrict any use of the information to criminally investigate or prosecute any alcohol or drug abuse patient.[facility] HospitalIn the event this information is protected by the Federal Confidentiality of Alcohol and Drug Abuse Patient Records regulations: The Federal rules restrict any use of the information to criminally investigate or prosecute any alcohol or drug abuse patient.[facility] HospitalIn the event this information is protected by the Federal Confidentiality of Alcohol and Drug Abuse Patient Records regulations: The Federal rules restrict any use of the information to criminally investigate or prosecute any alcohol or drug abuse patient.[facility] HospitalIn the event this information is protected by the Federal Confidentiality of Alcohol and Drug Abuse Patient Records regulations: The Federal rules restrict any use of the information to criminally investigate or prosecute any alcohol or drug abuse patient.[facility] HospitalIn the event this information is protected by the Federal Confidentiality of Alcohol and Drug Abuse Patient Records regulations: The Federal rules restrict any use of the information to criminally investigate or prosecute any alcohol or drug abuse patient.[facility] HospitalIn the event this information is protected by the Federal Confidentiality of Alcohol and Drug Abuse Patient Records regulations: The Federal rules restrict any use of the information to criminally investigate or prosecute any alcohol or drug abuse patient.[facility] HospitalIn the event this information is protected by the Federal Confidentiality of Alcohol and Drug Abuse Patient Records regulations: The Federal rules restrict any use of the information to criminally investigate or prosecute any alcohol or drug abuse patient.[facility] HospitalIn the event this information is protected by the Federal Confidentiality of Alcohol and Drug Abuse Patient Records regulations: The Federal rules restrict any use of the information to criminally investigate or prosecute any alcohol or drug abuse patient.[facility] HospitalIn the event this information is protected by the Federal Confidentiality of Alcohol and Drug Abuse Patient Records regulations: The Federal rules restrict any use of the information to criminally investigate or prosecute any alcohol or drug abuse patient.[facility] HospitalIn the event this information is protected by the Federal Confidentiality of Alcohol and Drug Abuse Patient Records regulations: The Federal rules restrict any use of the information to criminally investigate or prosecute any alcohol or drug abuse patient.[facility] HospitalIn the event this information is protected by the Federal Confidentiality of Alcohol and Drug Abuse Patient Records regulations: The Federal rules restrict any use of the information to criminally investigate or prosecute any alcohol or drug abuse patient.[facility] HospitalIn the event this information is protected by the Federal Confidentiality of Alcohol and Drug Abuse Patient Records regulations: The Federal rules restrict any use of the information to criminally investigate or prosecute any alcohol or drug abuse patient.[facility] HospitalIn the event this information is protected by the Federal Confidentiality of Alcohol and Drug Abuse Patient Records regulations: The Federal rules restrict any use of the information to criminally investigate or prosecute any alcohol or drug abuse patient.[facility] HospitalIn the event this information is protected by the Federal Confidentiality of Alcohol and Drug Abuse Patient Records regulations: The Federal rules restrict any use of the information to criminally investigate or prosecute any alcohol or drug abuse patient.[facility] HospitalIn the event this information is protected by the Federal Confidentiality of Alcohol and Drug Abuse Patient Records regulations: The Federal rules restrict any use of the information to criminally investigate or prosecute any alcohol or drug abuse patient.[facility] HospitalIn the event this information is protected by the Federal Confidentiality of Alcohol and Drug Abuse Patient Records regulations: The Federal rules restrict any use of the information to criminally investigate or prosecute any alcohol or drug abuse patient.[facility] HospitalIn the event this information is protected by the Federal Confidentiality of Alcohol and Drug Abuse Patient Records regulations: The Federal rules restrict any use of the information to criminally investigate or prosecute any alcohol or drug abuse patient.[facility] HospitalIn the event this information is protected by the Federal Confidentiality of Alcohol and Drug Abuse Patient Records regulations: The Federal rules restrict any use of the information to criminally investigate or prosecute any alcohol or drug abuse patient.[facility] HospitalIn the event this information is protected by the Federal Confidentiality of Alcohol and Drug Abuse Patient Records regulations: The Federal rules restrict any use of the information to criminally investigate or prosecute any alcohol or drug abuse patient.[facility] HospitalIn the event this information is protected by the Federal Confidentiality of Alcohol and Drug Abuse Patient Records regulations: The Federal rules restrict any use of the information to criminally investigate or prosecute any alcohol or drug abuse patient.[facility] HospitalIn the event this information is protected by the Federal Confidentiality of Alcohol and Drug Abuse Patient Records regulations: The Federal rules restrict any use of the information to criminally investigate or prosecute any alcohol or drug abuse patient.[facility] HospitalIn the event this information is protected by the Federal Confidentiality of Alcohol and Drug Abuse Patient Records regulations: The Federal rules restrict any use of the information to criminally investigate or prosecute any alcohol or drug abuse patient.[facility] HospitalIn the event this information is protected by the Federal Confidentiality of Alcohol and Drug Abuse Patient Records regulations: The Federal rules restrict any use of the information to criminally investigate or prosecute any alcohol or drug abuse patient.[facility] HospitalIn the event this information is protected by the Federal Confidentiality of Alcohol and Drug Abuse Patient Records regulations: The Federal rules restrict any use of the information to criminally investigate or prosecute any alcohol or drug abuse patient.[facility] HospitalIn the event this information is protected by the Federal Confidentiality of Alcohol and Drug Abuse Patient Records regulations: The Federal rules restrict any use of the information to criminally investigate or prosecute any alcohol or drug abuse patient.[facility] HospitalIn the event this information is protected by the Federal Confidentiality of Alcohol and Drug Abuse Patient Records regulations: The Federal rules restrict any use of the information to criminally investigate or prosecute any alcohol or drug abuse patient.[facility] HospitalIn the event this information is protected by the Federal Confidentiality of Alcohol and Drug Abuse Patient Records regulations: The Federal rules restrict any use of the information to criminally investigate or prosecute any alcohol or drug abuse patient.[facility] HospitalIn the event this information is protected by the Federal Confidentiality of Alcohol and Drug Abuse Patient Records regulations: The Federal rules restrict any use of the information to criminally investigate or prosecute any alcohol or drug abuse patient.[facility] HospitalIn the event this information is protected by the Federal Confidentiality of Alcohol and Drug Abuse Patient Records regulations: The Federal rules restrict any use of the information to criminally investigate or prosecute any alcohol or drug abuse patient.[facility] HospitalIn the event this information is protected by the Federal Confidentiality of Alcohol and Drug Abuse Patient Records regulations: The Federal rules restrict any use of the information to criminally investigate or prosecute any alcohol or drug abuse patient.[facility] HospitalIn the event this information is protected by the Federal Confidentiality of Alcohol and Drug Abuse Patient Records regulations: The Federal rules restrict any use of the information to criminally investigate or prosecute any alcohol or drug abuse patient.[facility] HospitalIn the event this information is protected by the Federal Confidentiality of Alcohol and Drug Abuse Patient Records regulations: The Federal rules restrict any use of the information to criminally investigate or prosecute any alcohol or drug abuse patient.[facility] HospitalIn the event this information is protected by the Federal Confidentiality of Alcohol and Drug Abuse Patient Records regulations: The Federal rules restrict any use of the information to criminally investigate or prosecute any alcohol or drug abuse patient.[facility] HospitalIn the event this information is protected by the Federal Confidentiality of Alcohol and Drug Abuse Patient Records regulations: The Federal rules restrict any use of the information to criminally investigate or prosecute any alcohol or drug abuse patient.[facility] HospitalIn the event this information is protected by the Federal Confidentiality of Alcohol and Drug Abuse Patient Records regulations: The Federal rules restrict any use of the information to criminally investigate or prosecute any alcohol or drug abuse patient.[facility] HospitalIn the event this information is protected by the Federal Confidentiality of Alcohol and Drug Abuse Patient Records regulations: The Federal rules restrict any use of the information to criminally investigate or prosecute any alcohol or drug abuse patient.[facility] HospitalIn the event this information is protected by the Federal Confidentiality of Alcohol and Drug Abuse Patient Records regulations: The Federal rules restrict any use of the information to criminally investigate or prosecute any alcohol or drug abuse patient.[facility] HospitalIn the event this information is protected by the Federal Confidentiality of Alcohol and Drug Abuse Patient Records regulations: The Federal rules restrict any use of the information to criminally investigate or prosecute any alcohol or drug abuse patient.[facility] HospitalIn the event this information is protected by the Federal Confidentiality of Alcohol and Drug Abuse Patient Records regulations: The Federal rules restrict any use of the information to criminally investigate or prosecute any alcohol or drug abuse patient.[facility] HospitalIn the event this information is protected by the Federal Confidentiality of Alcohol and Drug Abuse Patient Records regulations: The Federal rules restrict any use of the information to criminally investigate or prosecute any alcohol or drug abuse patient.[facility] HospitalIn the event this information is protected by the Federal Confidentiality of Alcohol and Drug Abuse Patient Records regulations: The Federal rules restrict any use of the information to criminally investigate or prosecute any alcohol or drug abuse patient.[facility] HospitalIn the event this information is protected by the Federal Confidentiality of Alcohol and Drug Abuse Patient Records regulations: The Federal rules restrict any use of the information to criminally investigate or prosecute any alcohol or drug abuse patient.[facility] HospitalIn the event this information is protected by the Federal Confidentiality of Alcohol and Drug Abuse Patient Records regulations: The Federal rules restrict any use of the information to criminally investigate or prosecute any alcohol or drug abuse patient.[facility] HospitalIn the event this information is protected by the Federal Confidentiality of Alcohol and Drug Abuse Patient Records regulations: The Federal rules restrict any use of the information to criminally investigate or prosecute any alcohol or drug abuse patient.[facility] HospitalIn the event this information is protected by the Federal Confidentiality of Alcohol and Drug Abuse Patient Records regulations: The Federal rules restrict any use of the information to criminally investigate or prosecute any alcohol or drug abuse patient.[facility] HospitalIn the event this information is protected by the Federal Confidentiality of Alcohol and Drug Abuse Patient Records regulations: The Federal rules restrict any use of the information to criminally investigate or prosecute any alcohol or drug abuse patient.[facility] HospitalIn the event this information is protected by the Federal Confidentiality of Alcohol and Drug Abuse Patient Records regulations: The Federal rules restrict any use of the information to criminally investigate or prosecute any alcohol or drug abuse patient.[facility] HospitalIn the event this information is protected by the Federal Confidentiality of Alcohol and Drug Abuse Patient Records regulations: The Federal rules restrict any use of the information to criminally investigate or prosecute any alcohol or drug abuse patient.[facility] HospitalIn the event this information is protected by the Federal Confidentiality of Alcohol and Drug Abuse Patient Records regulations: The Federal rules restrict any use of the information to criminally investigate or prosecute any alcohol or drug abuse patient.[facility] HospitalIn the event this information is protected by the Federal Confidentiality of Alcohol and Drug Abuse Patient Records regulations: The Federal rules restrict any use of the information to criminally investigate or prosecute any alcohol or drug abuse patient.[facility] HospitalIn the event this information is protected by the Federal Confidentiality of Alcohol and Drug Abuse Patient Records regulations: The Federal rules restrict any use of the information to criminally investigate or prosecute any alcohol or drug abuse patient.[facility] HospitalIn the event this information is protected by the Federal Confidentiality of Alcohol and Drug Abuse Patient Records regulations: The Federal rules restrict any use of the information to criminally investigate or prosecute any alcohol or drug abuse patient.[facility] HospitalIn the event this information is protected by the Federal Confidentiality of Alcohol and Drug Abuse Patient Records regulations: The Federal rules restrict any use of the information to criminally investigate or prosecute any alcohol or drug abuse patient.[facility] HospitalIn the event this information is protected by the Federal Confidentiality of Alcohol and Drug Abuse Patient Records regulations: The Federal rules restrict any use of the information to criminally investigate or prosecute any alcohol or drug abuse patient.[facility] HospitalIn the event this information is protected by the Federal Confidentiality of Alcohol and Drug Abuse Patient Records regulations: The Federal rules restrict any use of the information to criminally investigate or prosecute any alcohol or drug abuse patient.[facility] HospitalIn the event this information is protected by the Federal Confidentiality of Alcohol and Drug Abuse Patient Records regulations: The Federal rules restrict any use of the information to criminally investigate or prosecute any alcohol or drug abuse patient.[facility] HospitalIn the event this information is protected by the Federal Confidentiality of Alcohol and Drug Abuse Patient Records regulations: The Federal rules restrict any use of the information to criminally investigate or prosecute any alcohol or drug abuse patient.[facility] HospitalIn the event this information is protected by the Federal Confidentiality of Alcohol and Drug Abuse Patient Records regulations: The Federal rules restrict any use of the information to criminally investigate or prosecute any alcohol or drug abuse patient.[facility] HospitalIn the event this information is protected by the Federal Confidentiality of Alcohol and Drug Abuse Patient Records regulations: The Federal rules restrict any use of the information to criminally investigate or prosecute any alcohol or drug abuse patient.[facility] HospitalIn the event this information is protected by the Federal Confidentiality of Alcohol and Drug Abuse Patient Records regulations: The Federal rules restrict any use of the information to criminally investigate or prosecute any alcohol or drug abuse patient.[facility] HospitalIn the event this information is protected by the Federal Confidentiality of Alcohol and Drug Abuse Patient Records regulations: The Federal rules restrict any use of the information to criminally investigate or prosecute any alcohol or drug abuse patient.[facility] HospitalIn the event this information is protected by the Federal Confidentiality of Alcohol and Drug Abuse Patient Records regulations: The Federal rules restrict any use of the information to criminally investigate or prosecute any alcohol or drug abuse patient.[facility] HospitalIn the event this information is protected by the Federal Confidentiality of Alcohol and Drug Abuse Patient Records regulations: The Federal rules restrict any use of the information to criminally investigate or prosecute any alcohol or drug abuse patient.[facility] HospitalIn the event this information is protected by the Federal Confidentiality of Alcohol and Drug Abuse Patient Records regulations: The Federal rules restrict any use of the information to criminally investigate or prosecute any alcohol or drug abuse patient.[facility] HospitalIn the event this information is protected by the Federal Confidentiality of Alcohol and Drug Abuse Patient Records regulations: The Federal rules restrict any use of the information to criminally investigate or prosecute any alcohol or drug abuse patient.[facility] HospitalIn the event this information is protected by the Federal Confidentiality of Alcohol and Drug Abuse Patient Records regulations: The Federal rules restrict any use of the information to criminally investigate or prosecute any alcohol or drug abuse patient.[facility] HospitalIn the event this information is protected by the Federal Confidentiality of Alcohol and Drug Abuse Patient Records regulations: The Federal rules restrict any use of the information to criminally investigate or prosecute any alcohol or drug abuse patient.[facility] HospitalIn the event this information is protected by the Federal Confidentiality of Alcohol and Drug Abuse Patient Records regulations: The Federal rules restrict any use of the information to criminally investigate or prosecute any alcohol or drug abuse patient.[facility] HospitalIn the event this information is protected by the Federal Confidentiality of Alcohol and Drug Abuse Patient Records regulations: The Federal rules restrict any use of the information to criminally investigate or prosecute any alcohol or drug abuse patient.[facility] HospitalIn the event this information is protected by the Federal Confidentiality of Alcohol and Drug Abuse Patient Records regulations: The Federal rules restrict any use of the information to criminally investigate or prosecute any alcohol or drug abuse patient.[facility] HospitalIn the event this information is protected by the Federal Confidentiality of Alcohol and Drug Abuse Patient Records regulations: The Federal rules restrict any use of the information to criminally investigate or prosecute any alcohol or drug abuse patient.[facility] HospitalIn the event this information is protected by the Federal Confidentiality of Alcohol and Drug Abuse Patient Records regulations: The Federal rules restrict any use of the information to criminally investigate or prosecute any alcohol or drug abuse patient.[facility] HospitalIn the event this information is protected by the Federal Confidentiality of Alcohol and Drug Abuse Patient Records regulations: The Federal rules restrict any use of the information to criminally investigate or prosecute any alcohol or drug abuse patient.[facility] HospitalIn the event this information is protected by the Federal Confidentiality of Alcohol and Drug Abuse Patient Records regulations: The Federal rules restrict any use of the information to criminally investigate or prosecute any alcohol or drug abuse patient.[facility] HospitalIn the event this information is protected by the Federal Confidentiality of Alcohol and Drug Abuse Patient Records regulations: The Federal rules restrict any use of the information to criminally investigate or prosecute any alcohol or drug abuse patient.[facility] HospitalIn the event this information is protected by the Federal Confidentiality of Alcohol and Drug Abuse Patient Records regulations: The Federal rules restrict any use of the information to criminally investigate or prosecute any alcohol or drug abuse patient.[facility] HospitalIn the event this information is protected by the Federal Confidentiality of Alcohol and Drug Abuse Patient Records regulations: The Federal rules restrict any use of the information to criminally investigate or prosecute any alcohol or drug abuse patient.[facility] HospitalIn the event this information is protected by the Federal Confidentiality of Alcohol and Drug Abuse Patient Records regulations: The Federal rules restrict any use of the information to criminally investigate or prosecute any alcohol or drug abuse patient.[facility] HospitalIn the event this information is protected by the Federal Confidentiality of Alcohol and Drug Abuse Patient Records regulations: The Federal rules restrict any use of the information to criminally investigate or prosecute any alcohol or drug abuse patient.[facility] HospitalIn the event this information is protected by the Federal Confidentiality of Alcohol and Drug Abuse Patient Records regulations: The Federal rules restrict any use of the information to criminally investigate or prosecute any alcohol or drug abuse patient.[facility] HospitalIn the event this information is protected by the Federal Confidentiality of Alcohol and Drug Abuse Patient Records regulations: The Federal rules restrict any use of the information to criminally investigate or prosecute any alcohol or drug abuse patient.[facility] HospitalIn the event this information is protected by the Federal Confidentiality of Alcohol and Drug Abuse Patient Records regulations: The Federal rules restrict any use of the information to criminally investigate or prosecute any alcohol or drug abuse patient.[facility] HospitalIn the event this information is protected by the Federal Confidentiality of Alcohol and Drug Abuse Patient Records regulations: The Federal rules restrict any use of the information to criminally investigate or prosecute any alcohol or drug abuse patient.[facility] HospitalIn the event this information is protected by the Federal Confidentiality of Alcohol and Drug Abuse Patient Records regulations: The Federal rules restrict any use of the information to criminally investigate or prosecute any alcohol or drug abuse patient.[facility] HospitalIn the event this information is protected by the Federal Confidentiality of Alcohol and Drug Abuse Patient Records regulations: The Federal rules restrict any use of the information to criminally investigate or prosecute any alcohol or drug abuse patient.[facility] HospitalIn the event this information is protected by the Federal Confidentiality of Alcohol and Drug Abuse Patient Records regulations: The Federal rules restrict any use of the information to criminally investigate or prosecute any alcohol or drug abuse patient.[facility] HospitalIn the event this information is protected by the Federal Confidentiality of Alcohol and Drug Abuse Patient Records regulations: The Federal rules restrict any use of the information to criminally investigate or prosecute any alcohol or drug abuse patient.[facility] HospitalIn the event this information is protected by the Federal Confidentiality of Alcohol and Drug Abuse Patient Records regulations: The Federal rules restrict any use of the information to criminally investigate or prosecute any alcohol or drug abuse patient.[facility] HospitalIn the event this information is protected by the Federal Confidentiality of Alcohol and Drug Abuse Patient Records regulations: The Federal rules restrict any use of the information to criminally investigate or prosecute any alcohol or drug abuse patient.[facility] HospitalIn the event this information is protected by the Federal Confidentiality of Alcohol and Drug Abuse Patient Records regulations: The Federal rules restrict any use of the information to criminally investigate or prosecute any alcohol or drug abuse patient.[facility] HospitalIn the event this information is protected by the Federal Confidentiality of Alcohol and Drug Abuse Patient Records regulations: The Federal rules restrict any use of the information to criminally investigate or prosecute any alcohol or drug abuse patient.[facility] HospitalIn the event this information is protected by the Federal Confidentiality of Alcohol and Drug Abuse Patient Records regulations: The Federal rules restrict any use of the information to criminally investigate or prosecute any alcohol or drug abuse patient.[facility] HospitalIn the event this information is protected by the Federal Confidentiality of Alcohol and Drug Abuse Patient Records regulations: The Federal rules restrict any use of the information to criminally investigate or prosecute any alcohol or drug abuse patient.[facility] HospitalIn the event this information is protected by the Federal Confidentiality of Alcohol and Drug Abuse Patient Records regulations: The Federal rules restrict any use of the information to criminally investigate or prosecute any alcohol or drug abuse patient.[facility] HospitalIn the event this information is protected by the Federal Confidentiality of Alcohol and Drug Abuse Patient Records regulations: The Federal rules restrict any use of the information to criminally investigate or prosecute any alcohol or drug abuse patient.[facility] HospitalIn the event this information is protected by the Federal Confidentiality of Alcohol and Drug Abuse Patient Records regulations: The Federal rules restrict any use of the information to criminally investigate or prosecute any alcohol or drug abuse patient.[facility] HospitalIn the event this information is protected by the Federal Confidentiality of Alcohol and Drug Abuse Patient Records regulations: The Federal rules restrict any use of the information to criminally investigate or prosecute any alcohol or drug abuse patient.[facility] HospitalIn the event this information is protected by the Federal Confidentiality of Alcohol and Drug Abuse Patient Records regulations: The Federal rules restrict any use of the information to criminally investigate or prosecute any alcohol or drug abuse patient.[facility] HospitalIn the event this information is protected by the Federal Confidentiality of Alcohol and Drug Abuse Patient Records regulations: The Federal rules restrict any use of the information to criminally investigate or prosecute any alcohol or drug abuse patient.[facility] HospitalIn the event this information is protected by the Federal Confidentiality of Alcohol and Drug Abuse Patient Records regulations: The Federal rules restrict any use of the information to criminally investigate or prosecute any alcohol or drug abuse patient.[facility] HospitalIn the event this information is protected by the Federal Confidentiality of Alcohol and Drug Abuse Patient Records regulations: The Federal rules restrict any use of the information to criminally investigate or prosecute any alcohol or drug abuse patient.[facility] HospitalIn the event this information is protected by the Federal Confidentiality of Alcohol and Drug Abuse Patient Records regulations: The Federal rules restrict any use of the information to criminally investigate or prosecute any alcohol or drug abuse patient.[facility] HospitalIn the event this information is protected by the Federal Confidentiality of Alcohol and Drug Abuse Patient Records regulations: The Federal rules restrict any use of the information to criminally investigate or prosecute any alcohol or drug abuse patient.[facility] HospitalIn the event this information is protected by the Federal Confidentiality of Alcohol and Drug Abuse Patient Records regulations: The Federal rules restrict any use of the information to criminally investigate or prosecute any alcohol or drug abuse patient.[facility] HospitalIn the event this information is protected by the Federal Confidentiality of Alcohol and Drug Abuse Patient Records regulations: The Federal rules restrict any use of the information to criminally investigate or prosecute any alcohol or drug abuse patient.[facility] HospitalIn the event this information is protected by the Federal Confidentiality of Alcohol and Drug Abuse Patient Records regulations: The Federal rules restrict any use of the information to criminally investigate or prosecute any alcohol or drug abuse patient.[facility] HospitalIn the event this information is protected by the Federal Confidentiality of Alcohol and Drug Abuse Patient Records regulations: The Federal rules restrict any use of the information to criminally investigate or prosecute any alcohol or drug abuse patient.[facility] HospitalIn the event this information is protected by the Federal Confidentiality of Alcohol and Drug Abuse Patient Records regulations: The Federal rules restrict any use of the information to criminally investigate or prosecute any alcohol or drug abuse patient.[facility] Care Teams (unrecognized sec tion and content) Farm Butcher Relationship Specialty Start Date End Date Mitch Mejia PCP - General Family Practice 01/19/16 Meenu Garay MD, [address] [place] [address] Physician Radiation Oncology 09/06/16 Carla Almonte, RN Specialty Hot Kettle Tender Oncology 07/06/17 Meenu Garay MD, [address] [place] [address] Physician Radiation Oncology 04/12/19 Chanelle Westfall, PRINCE [address] [place] [address] Specialty Hot Kettle Tender Hematology/Oncology 03/12/21 Farm Butcher Relationship Specialty Start Date End Date Mitch Mejia PCP - General Family Practice 01/19/16 Meenu Garay MD, [address] [place] [address] Physician Radiation Oncology 09/06/16 Carla Almonte RN Specialty Hot Kettle Tender Oncology 07/06/17 Meenu Garay MD, [address] [place] [address] Physician Radiation Oncology 04/12/19 Chanelle Westfall, PRINCE [address] [place] [address] Specialty Hot Kettle Tender Hematology/Oncology 03/12/21 Farm Butcher Relationship Specialty Start Date End Date Mitch Mejia PCP - General Family Practice 01/19/16 Meenu Garay MD, [address] [place] [address] Physician Radiation Oncology 09/06/16 Carla Almonte RN Specialty Hot Kettle Tender Oncology 07/06/17 Meenu Garay MD, [address] [place] [address] Physician Radiation Oncology 04/12/19 Chanelle Westfall, PRINCE [address] [place] [address] Specialty Hot Kettle Tender Hematology/Oncology 03/12/21 Farm Butcher Relationship Specialty Start Date End Date Mitch Mejia PCP - General Family Practice 01/19/16 Meenu Garay MD, [address] [place] [address] Physician Radiation Oncology 09/06/16 Carla Almonte, RN Specialty Hot Kettle Tender Oncology 07/06/17 Meenu Garay MD, [address] [place] [address] Physician Radiation Oncology 04/12/19 Chanelle Westfall RN [address] [place] [address] Specialty Hot Kettle Tender Hematology/Oncology 03/12/21 Farm Butcher Relationship Specialty Start Date End Date Mitch Mejia PCP - General Family Practice 01/19/16 Meenu Garay MD, [address] [place] [address] Physician Radiation Oncology 09/06/16 Carla Almonte RN Specialty Hot Kettle Tender Oncology 07/06/17 Meenu Garay MD, [address] [place] [address] Physician Radiation Oncology 04/12/19 Chanelle Westfall RN [address] [place] [address] Specialty Hot Kettle Tender Hematology/Oncology 03/12/21 Farm Butcher Relationship Specialty Start Date End Date Mitch Mejia PCP - General Family Practice 01/19/16 Meenu Garay MD, [address] [place] [address] Physician Radiation Oncology 09/06/16 Carla Almonte, RN Specialty Hot Kettle Tender Oncology 07/06/17 Meenu Garay MD, [address] [place] [address] Physician Radiation Oncology 04/12/19 Chanelle Westfall, PRINCE [address] [place] [address] Specialty Hot Kettle Tender Hematology/Oncology 03/12/21 Farm Butcher Relationship Specialty Start Date End Date Mitch Mejia PCP - General Family Practice 01/19/16 Meenu Garay MD, [address] [place] [address] Physician Radiation Oncology 09/06/16 Carla Almonte, RN Specialty Hot Kettle Tender Oncology 07/06/17 Meenu Garay MD, [address] [place] [address] Physician Radiation Oncology 04/12/19 Chanelle Westfall, PRINCE [address] [place] [address] Specialty Hot Kettle Tender Hematology/Oncology 03/12/21 Farm Butcher Relationship Specialty Start Date End Date Mitch Mejia PCP - General Family Practice 01/19/16 Meenu Garay MD, MD [address] [place] [address] Physician Radiation Oncology 09/06/16 Carla Almonte RN Specialty Hot Kettle Tender Oncology 07/06/17 Meenu Garay MD, [address] [place] [address] Physician Radiation Oncology 04/12/19 Chanelle Westfall, PRINCE [address] [place] [address] Specialty Hot Kettle Tender Hematology/Oncology 03/12/21 Farm Butcher Relationship Specialty Start Date End Date Mitch Mejia PCP - General Family Practice 01/19/16 Meenu Garay MD, [address] [place] [address] Physician Radiation Oncology 09/06/16 Carla Almonte RN Specialty Hot Kettle Tender Oncology 07/06/17 Meenu Garay MD, [address] [place] [address] Physician Radiation Oncology 04/12/19 Chanelle Westfall, PRINCE [address] [place] [address] Specialty Hot Kettle Tender Hematology/Oncology 03/12/21 Farm Butcher Relationship Specialty Start Date End Date Mitch Mejia PCP - General Family Practice 01/19/16 Meenu Garay MD, [address] [place] [address] Physician Radiation Oncology 09/06/16 Carla Almonte RN Specialty Hot Kettle Tender Oncology 07/06/17 Meenu Garay MD, [address] [place] [address] Physician Radiation Oncology 04/12/19 Chanelle Westfall, RN [address] [place] [address] Specialty Hot Kettle Tender Hematology/Oncology 03/12/21 Farm Butcher Relationship Specialty Start Date End Date Jonatanmarilyambrocio Mitch Tanvi PCP - General Family Practice 01/19/16 Meenu Garay MD, [address] [place] [address] Physician Radiation Oncology 09/06/16 Carla Almonte, RN Specialty Hot Kettle Tender Oncology 07/06/17 Meenu Garay MD, [address] [place] [address] Physician Radiation Oncology 04/12/19 Chanelle Westfall, PRINCE [address] [place] [address] Specialty Hot Kettle Tender Hematology/Oncology 03/12/21 Farm Butcher Relationship Specialty Start Date End Date JonatanmarilyambrocioMitch PCP - General Family Practice 01/19/16 Meenu Garay MD, [address] [place] [address] Physician Radiation Oncology 09/06/16 Carla Almonte RN Specialty Hot Kettle Tender Oncology 07/06/17 Meenu Garay MD, [address] [place] [address] Physician Radiation Oncology 04/12/19 Chanelle Westfall, PRINCE [address] [place] [address] Specialty Hot Kettle Tender Hematology/Oncology 03/12/21 Farm Butcher Relationship Specialty Start Date End Date Mitch Mejia PCP - General Family Practice 01/19/16 Meenu Garay MD, [address] [place] [address] Physician Radiation Oncology 09/06/16 Carla Almonte, RN Specialty Hot Kettle Tender Oncology 07/06/17 Meenu Garay MD, [address] [place] [address] Physician Radiation Oncology 04/12/19 Chanelle Westfall, PRINCE [address] [place] [address] Specialty Hot Kettle Tender Hematology/Oncology 03/12/21 Farm Butcher Relationship Specialty Start Date End Date Mitch Mejia PCP - General Family Practice 01/19/16 Meenu Garay MD, [address] [place] [address] Physician Radiation Oncology 09/06/16 Carla Almonte, RN Specialty Hot Kettle Tender Oncology 07/06/17 Meenu Garay MD, [address] [place] [address] Physician Radiation Oncology 04/12/19 Chanelle Westfall, PRINCE [address] [place] [address] Specialty Hot Kettle Tender Hematology/Oncology 03/12/21 Farm Butcher Relationship Specialty Start Date End Date Mitch Mejia PCP - General Family Practice 01/19/16 Meenu Garay MD, [address] [place] [address] Physician Radiation Oncology 09/06/16 Carla Almonte RN Specialty Hot Kettle Tender Oncology 07/06/17 Meenu Garay MD, [address] [place] [address] Physician Radiation Oncology 04/12/19 Chanelle Westfall, PRINCE [address] [place] [address] Specialty Hot Kettle Tender Hematology/Oncology 03/12/21 Farm Butcher Relationship Specialty Start Date End Date Mitch Mejia PCP - General Family Practice 01/19/16 Meenu Garay MD, [address] [place] [address] Physician Radiation Oncology 09/06/16 Carla Almonte RN Specialty Hot Kettle Tender Oncology 07/06/17 Meenu Garay MD, [address] [place] [address] Physician Radiation Oncology 04/12/19 Chanelle Westfall, PRINCE [address] [place] [address] Specialty Hot Kettle Tender Hematology/Oncology 03/12/21 Farm Butcher Relationship Specialty Start Date End Date Mitch Mejia PCP - General Family Practice 01/19/16 Meenu Garay MD, [address] [place] [address] Physician Radiation Oncology 09/06/16 Carla Almonte RN Specialty Hot Kettle Tender Oncology 07/06/17 Meenu Garay MD, [address] [place] [address] Physician Radiation Oncology 04/12/19 Chanelle Westfall, RN [address] [place] [address] Specialty Hot Kettle Tender Hematology/Oncology 03/12/21 Farm Butcher Relationship Specialty Start Date End Date JonatanMitch becerra PCP - General Family Practice 01/19/16 Meenu Garay MD, [address] [place] [address] Physician Radiation Oncology 09/06/16 Carla Almonte, RN Specialty Hot Kettle Tender Oncology 07/06/17 Meenu Garay MD, [address] [place] [address] Physician Radiation Oncology 04/12/19 Chanelle Westfall, PRINCE [address] [place] [address] Specialty Hot Kettle Tender Hematology/Oncology 03/12/21 Farm Butcher Relationship Specialty Start Date End Date Mitch Mejia PCP - General Family Practice 01/19/16 Meenu Garay MD, [address] [place] [address] Physician Radiation Oncology 09/06/16 Carla Almonte RN Specialty Hot Kettle Tender Oncology 07/06/17 Meenu Garay MD, [address] [place] [address] Physician Radiation Oncology 04/12/19 Chanelle Westfall, PRINCE [address] [place] [address] Specialty Hot Kettle Tender Hematology/Oncology 03/12/21 Farm Butcher Relationship Specialty Start Date End Date Mitch Mejia PCP - General Family Practice 01/19/16 Meenu Garay MD, [address] [place] [address] Physician Radiation Oncology 09/06/16 Carla Almonte, RN Specialty Hot Kettle Tender Oncology 07/06/17 Meenu Garay MD, [address] [place] [address] Physician Radiation Oncology 04/12/19 Chanelle Westfall, PRINCE [address] [place] [address] Specialty Hot Kettle Tender Hematology/Oncology 03/12/21 Farm Butcher Relationship Specialty Start Date End Date Mitch Mejia PCP - General Family Practice 01/19/16 Meenu Garay MD, [address] [place] [address] Physician Radiation Oncology 09/06/16 Carla Almonte, RN Specialty Hot Kettle Tender Oncology 07/06/17 Meenu Garay MD, [address] [place] [address] Physician Radiation Oncology 04/12/19 Chanelle Westfall, RN [address] [place] [address] Specialty Hot Kettle Tender Hematology/Oncology 03/12/21 Farm Butcher Relationship Specialty Start Date End Date Mitch Mejia PCP - General Family Practice 01/19/16 Meenu Garay MD, [address] [place] [address] Physician Radiation Oncology 09/06/16 Carla Almonte RN Specialty Hot Kettle Tender Oncology 07/06/17 Meenu Garay MD, [address] [place] [address] Physician Radiation Oncology 04/12/19 Chanelle Westfall, PRINCE [address] [place] [address] Specialty Hot Kettle Tender Hematology/Oncology 03/12/21 Farm Butcher Relationship Specialty Start Date End Date Mitch Mejia PCP - General Family Practice 01/19/16 Meenu Garay MD, [address] [place] [address] Physician Radiation Oncology 09/06/16 Carla Almonte RN Specialty Hot Kettle Tender Oncology 07/06/17 Meenu Garay MD, [address] [place] [address] Physician Radiation Oncology 04/12/19 Chanelle Westfall RN [address] [place] [address] Specialty Hot Kettle Tender Hematology/Oncology 03/12/21 Farm Butcher Relationship Specialty Start Date End Date Mitch Mejia PCP - General Family Practice 01/19/16 Meenu Garay MD, [address] [place] [address] Physician Radiation Oncology 09/06/16 Carla Almonte RN Specialty Hot Kettle Tender Oncology 07/06/17 Meenu Garay MD, [address] [place] [address] Physician Radiation Oncology 04/12/19 Chanelle Westfall, RN [address] [place] [address] Specialty Hot Kettle Tender Hematology/Oncology 03/12/21 Farm Butcher Relationship Specialty Start Date End Date JonatanmarilyambrocioMitch PCP - General Family Practice 01/19/16 Meenu Garay MD, [address] [place] [address] Physician Radiation Oncology 09/06/16 Carla Almonte RN Specialty Hot Kettle Tender Oncology 07/06/17 Meenu Garay MD, [address] [place] [address] Physician Radiation Oncology 04/12/19 Chanelle Westfall RN [address] [place] [address] Specialty Hot Kettle Tender Hematology/Oncology 03/12/21 Farm Butcher Relationship Specialty Start Date End Date Mitch Mejia PCP - General Family Practice 01/19/16 Meenu Garay MD, [address] [place] [address] Physician Radiation Oncology 09/06/16 Carla Almonte RN Specialty Hot Kettle Tender Oncology 07/06/17 Meenu Garay MD, [address] [place] [address] Physician Radiation Oncology 04/12/19 Chanelle Westfall RN [address] [place] [address] Specialty Hot Kettle Tender Hematology/Oncology 03/12/21 Farm Butcher Relationship Specialty Start Date End Date Mitch Mejia PCP - General Family Practice 01/19/16 Meenu Garay MD, [address] [place] [address] Physician Radiation Oncology 09/06/16 Carla Almonte RN Specialty Hot Kettle Tender Oncology 07/06/17 Meenu Garay MD, [address] [place] [address] Physician Radiation Oncology 04/12/19 Chanelle Westfall, PRINCE [address] [place] [address] Specialty Hot Kettle Tender Hematology/Oncology 03/12/21 Farm Butcher Relationship Specialty Start Date End Date Mitch Mejia PCP - General Family Medicine 01/19/16 Meenu Garay MD, [address] [place] [address] Physician Radiation Oncology 09/06/16 Carla Almonte, RN Specialty Hot Kettle Tender Oncology 07/06/17 Meenu Garay MD, [address] [place] [address] Physician Radiation Oncology 04/12/19 Chanelle Westfall, PRINCE [address] [place] [address] Specialty Hot Kettle Tender Hematology/Oncology 03/12/21 Farm Butcher Relationship Specialty Start Date End Date Mitch Mejia PCP - General Family Medicine 01/19/16 Meenu Garay MD, [address] [place] [address] Physician Radiation Oncology 09/06/16 Carla Almonte RN Specialty Hot Kettle Tender Oncology 07/06/17 Meenu Garay MD, [address] [place] [address] Physician Radiation Oncology 04/12/19 Chanelle Westfall, PRINCE [address] [place] [address] Specialty Hot Kettle Tender Hematology/Oncology 03/12/21 Farm Butcher Relationship Specialty Start Date End Date Mitch Mejia PCP - General Family Medicine 01/19/16 Meenu Garay MD, [address] [place] [address] Physician Radiation Oncology 09/06/16 Carla Almonte RN Specialty Hot Kettle Tender Oncology 07/06/17 Meenu Garay MD, [address] [place] [address] Physician Radiation Oncology 04/12/19 Chanelle Westfall, PRINCE [address] [place] [address] Specialty Hot Kettle Tender Hematology/Oncology 03/12/21 Farm Butcher Relationship Specialty Start Date End Date Mitch Mejia PCP - General Family Medicine 01/19/16 Meenu Garay MD, [address] [place] [address] Physician Radiation Oncology 09/06/16 Carla Almonte RN Specialty Hot Kettle Tender Oncology 07/06/17 Meenu Garay MD, MD [address] [place] [address] Physician Radiation Oncology 04/12/19 Chanelle Westfall, PRINCE [address] [place] [address] Specialty Hot Kettle Tender Hematology/Oncology 03/12/21 Farm Butcher Relationship Specialty Start Date End Date Mitch Mejia PCP - General Family Medicine 01/19/16 Meenu Garay MD, [address] [place] [address] Physician Radiation Oncology 09/06/16 Carla Almonte RN Specialty Hot Kettle Tender Oncology 07/06/17 Meenu Garay MD, [address] [place] [address] Physician Radiation Oncology 04/12/19 Chanelle Westfall, PRINCE [address] [place] [address] Specialty Hot Kettle Tender Hematology/Oncology 03/12/21 Farm Butcher Relationship Specialty Start Date End Date Mitch Mejia PCP - General Family Medicine 01/19/16 Meenu Garay MD, [address] [place] [address] Physician Radiation Oncology 09/06/16 Carla Almonte RN Specialty Hot Kettle Tender Oncology 07/06/17 Meenu Garay MD, [address] [place] [address] Physician Radiation Oncology 04/12/19 Chanelle Westfall, RN [address] [place] [address] Specialty Hot Kettle Tender Hematology/Oncology 03/12/21 Farm Butcher Relationship Specialty Start Date End Date Mitch Mejia PCP - General Family Medicine 01/19/16 Meenu Garay MD, [address] [place] [address] Physician Radiation Oncology 09/06/16 Carla Almonte RN Specialty Hot Kettle Tender Oncology 07/06/17 Meenu Garay MD, [address] [place] [address] Physician Radiation Oncology 04/12/19 Chanelle Westfall RN [address] [place] [address] Specialty Hot Kettle Tender Hematology/Oncology 03/12/21 Farm Butcher Relationship Specialty Start Date End Date Mitch Mejia PCP - General Family Medicine 01/19/16 Meenu Garay MD, [address] [place] [address] Physician Radiation Oncology 09/06/16 Carla Almonte RN Specialty Hot Kettle Tender Oncology 07/06/17 Meenu Garay MD, [address] [place] [address] Physician Radiation Oncology 04/12/19 Chanelle Westfall, PRINCE [address] [place] [address] Specialty Hot Kettle Tender Hematology/Oncology 03/12/21 Farm Butcher Relationship Specialty Start Date End Date Mitch Mejia PCP - General Family Medicine 01/19/16 Meenu Garay MD, [address] [place] [address] Physician Radiation Oncology 09/06/16 Carla Almonte RN Specialty Hot Kettle Tender Oncology 07/06/17 Meenu Garay MD, [address] [place] [address] Physician Radiation Oncology 04/12/19 Chanelle Westfall, PRINCE [address] [place] [address] Specialty Hot Kettle Tender Hematology/Oncology 03/12/21 Farm Butcher Relationship Specialty Start Date End Date Mitch Mejia PCP - General Family Medicine 01/19/16 Meenu Garay MD, [address] [place] [address] Physician Radiation Oncology 09/06/16 Carla Almonte RN Specialty Hot Kettle Tender Oncology 07/06/17 Meenu Garay MD, [address] [place] [address] Physician Radiation Oncology 04/12/19 Chanelle Westfall, PRINCE [address] [place] [address] Specialty Hot Kettle Tender Hematology/Oncology 03/12/21 Farm Butcher Relationship Specialty Start Date End Date Mitch Mejia PCP - General Family Medicine 01/19/16 Meenu Garay MD, [address] [place] [address] Physician Radiation Oncology 09/06/16 Doup, Carla, RN Specialty Hot Kettle Tender Oncology 07/06/17 Meenu Garay MD, [address] [place] [address] Physician Radiation Oncology 04/12/19 Chanelle Westfall, PRINCE [address] [place] [address] Specialty Hot Kettle Tender Hematology/Oncology 03/12/21 Farm Butcher Relationship Specialty Start Date End Date Mitch Mejia PCP - General Family Medicine 01/19/16 Meenu Garay MD, [address] [place] [address] Physician Radiation Oncology 09/06/16 Carla Almonte RN Specialty Hot Kettle Tender Oncology 07/06/17 Meenu Garay MD, [address] [place] [address] Physician Radiation Oncology 04/12/19 Chanelle Westfall, PRINCE [address] [place] [address] Specialty Hot Kettle Tender Hematology/Oncology 03/12/21 Farm Butcher Relationship Specialty Start Date End Date Mitch Mejia PCP - General Family Medicine 01/19/16 Meenu Garay MD, [address] [place] [address] Physician Radiation Oncology 09/06/16 Carla Almonte RN Specialty Hot Kettle Tender Oncology 07/06/17 Meenu Garay MD, [address] [place] [address] Physician Radiation Oncology 04/12/19 Chanelle Westfall, PRINCE [address] [place] [address] Specialty Hot Kettle Tender Hematology/Oncology 03/12/21 Farm Butcher Relationship Specialty Start Date End Date Mitch Mejia PCP - General Family Medicine 01/19/16 Meenu Garay MD, [address] [place] [address] Physician Radiation Oncology 09/06/16 Carla Almonte RN Specialty Hot Kettle Tender Oncology 07/06/17 Meenu Garay MD, [address] [place] [address] Physician Radiation Oncology 04/12/19 Chanelle Westfall RN [address] [place] [address] Specialty Hot Kettle Tender Hematology/Oncology 03/12/21 Farm Butcher Relationship Specialty Start Date End Date Mitch Mejia PCP - General Family Medicine 01/19/16 Meenu Garay MD, [address] [place] [address] Physician Radiation Oncology 09/06/16 Carla Almonte RN Specialty Hot Kettle Tender Oncology 07/06/17 Meenu Garay MD, [address] [place] [address] Physician Radiation Oncology 04/12/19 Chanelle Westfall RN [address] [place] [address] Specialty Hot Kettle Tender Hematology/Oncology 03/12/21 Farm Butcher Relationship Specialty Start Date End Date Mitch Mejia PCP - General Family Medicine 01/19/16 Meenu Garay MD, [address] [place] [address] Physician Radiation Oncology 09/06/16 Carla Almonte, RN Specialty Hot Kettle Tender Oncology 07/06/17 Meenu Garay MD, [address] [place] [address] Physician Radiation Oncology 04/12/19 Chanelle Westfall, PRINCE [address] [place] [address] Specialty Hot Kettle Tender Hematology/Oncology 03/12/21 Farm Butcher Relationship Specialty Start Date End Date Mitch Mejia PCP - General Family Medicine 01/19/16 Meenu Garay MD, [address] [place] [address] Physician Radiation Oncology 09/06/16 Carla Almonte, RN Specialty Hot Kettle Tender Oncology 07/06/17 Meenu Garay MD, [address] [place] [address] Physician Radiation Oncology 04/12/19 Chanelle Westfall, RN [address] [place] [address] Specialty Hot Kettle Tender Hematology/Oncology 03/12/21 Team Status: Active Member Role Status Dates Dr. Mitch Mejia MD Family Provider Active Dr. Mitch Mejia MD Primary Care Provider Active Team Status: Inactive Member Role Status Dates Dr. Mitch Mejia MD Primary Care Provider, [facility] Provider Active Dr. Mayco Galeano MD Attending Provider Active Team Status: Active Member Role Status Dates Dr. Mitch Mejia MD Primary Care Provider Active Dr. Mayco Galeano MD Attending Provider Active Team Status: Inactive Member Role Status Dates Dr. Mitch Mejia MD Primary Care Provider Active Caity Cote PRINCIPAL PLANNER, PRINCIPAL PLANNER-C Attending Provider Active Farm Butcher Relationship Specialty Start Date End Date Mitch Mejia PCP - General Family Medicine 01/19/16 Meenu Garay MD, [address] [place] [address] Physician Radiation Oncology 09/06/16 Carla Almonte RN Specialty Hot Kettle Tender Oncology 07/06/17 Meenu Garay MD, [address] [place] [address] Physician Radiation Oncology 04/12/19 Chanelle Westfall, PRINCE [address] [place] [address] Specialty Hot Kettle Tender Hematology/Oncology 03/12/21 Farm Butcher Relationship Specialty Start Date End Date Mitch Mejia PCP - General Family Medicine 01/19/16 Meenu Garay MD, [address] [place] [address] Physician Radiation Oncology 09/06/16 Carla Almonte RN Specialty Hot Kettle Tender Oncology 07/06/17 Meenu Garay MD, [address] [place] [address] Physician Radiation Oncology 04/12/19 Chanelle Westfall, PRINCE [address] [place] [address] Specialty Hot Kettle Tender Hematology/Oncology 03/12/21 Farm Butcher Relationship Specialty Start Date End Date Mitch Mejia PCP - General Family Medicine 01/19/16 Meenu Garay MD, [address] [place] [address] Physician Radiation Oncology 09/06/16 Carla Almonte RN Specialty Hot Kettle Tender Oncology 07/06/17 Meenu Garay MD, [address] [place] [address] Physician Radiation Oncology 04/12/19 Chanelle Westfall, PRINCE [address] [place] [address] Specialty Hot Kettle Tender Hematology/Oncology 03/12/21 Farm Butcher Relationship Specialty Start Date End Date Mitch Mejia PCP - General Family Medicine 01/19/16 Meenu Garay MD, [address] [place] [address] Physician Radiation Oncology 09/06/16 Carla Almonte RN Specialty Hot Kettle Tender Oncology 07/06/17 Meenu Garay MD, [address] [place] [address] Physician Radiation Oncology 04/12/19 Chanelle Westfall, PRINCE [address] [place] [address] Specialty Hot Kettle Tender Hematology/Oncology 03/12/21 Farm Butcher Relationship Specialty Start Date End Date Mitch Mejia PCP - General Family Medicine 01/19/16 Meenu Garay MD, [address] [place] [address] Physician Radiation Oncology 09/06/16 Doup, Carla, RN Specialty Hot Kettle Tender Oncology 07/06/17 Meenu Garay MD, [address] [place] [address] Physician Radiation Oncology 04/12/19 Chanelle Westfall, PRINCE [address] [place] [address] Specialty Hot Kettle Tender Hematology/Oncology 03/12/21 Farm Butcher Relationship Specialty Start Date End Date Mitch Mejia PCP - General Family Medicine 01/19/16 Meenu Garay MD, [address] [place] [address] Physician Radiation Oncology 09/06/16 Carla Almonte RN Specialty Hot Kettle Tender Oncology 07/06/17 Meenu Garay MD, [address] [place] [address] Physician Radiation Oncology 04/12/19 Chanelle Westfall, PRINCE [address] [place] [address] Specialty Hot Kettle Tender Hematology/Oncology 03/12/21 Mayco Galeano [address] [facility] [place] [address] Cardiology 08/18/22 Farm Butcher Relationship Specialty Start Date End Date Mitch Mejia PCP - General Family Medicine 01/19/16 Meenu Garay MD, [address] [place] [address] Physician Radiation Oncology 09/06/16 Carla Almonte RN Specialty Hot Kettle Tender Oncology 07/06/17 Meenu Garay MD, [address] [place] [address] Physician Radiation Oncology 04/12/19 Chanelle Westfall, PRINCE [address] [place] [address] Specialty Hot Kettle Tender Hematology/Oncology 03/12/21 [place], [place] S [address] [place] [address] Cardiology 08/18/22 Farm Butcher Relationship Specialty Start Date End Date Mitch Mejia PCP - General Family Medicine 01/19/16 Meenu Garay MD, MD [address] [place] [place] [address] Physician Radiation Oncology 09/06/16 Carla Almonte RN Specialty Hot Kettle Tender Oncology 07/06/17 Meenu Garay MD, [address] [place] [address] Physician Radiation Oncology 04/12/19 Chanelle Westfall, PRINCE [address] [place] [address] Specialty Hot Kettle Tender Hematology/Oncology 03/12/21 [place], [place] S [address] [place] [address] Cardiology 08/18/22 Farm Butcher Relationship Specialty Start Date End Date Mitch Mejia PCP - General Family Medicine 01/19/16 Meenu Garay MD, [address] [place] [address] Physician Radiation Oncology 09/06/16 Doup, Carla, RN Specialty Hot Kettle Tender Oncology 07/06/17 Meenu Garay MD, [address] [place] [address] Physician Radiation Oncology 04/12/19 Chanelle Westfall, PRINCE [address] [place] [address] Specialty Hot Kettle Tender Hematology/Oncology 03/12/21 [place], [place] S [address] [place] [address] Cardiology 08/18/22 Farm Butcher Relationship Specialty Start Date End Date Mitch Mejia PCP - General Family Medicine 01/19/16 Meenu Garay MD, [address] [place] [address] Physician Radiation Oncology 09/06/16 Carla Almonte RN Specialty Hot Kettle Tender Oncology 07/06/17 Meenu Garay MD, [address] [place] [address] Physician Radiation Oncology 04/12/19 Chanelle Westfall, PRINCE [address] [place] [address] Specialty Hot Kettle Tender Hematology/Oncology 03/12/21 [place], [place] S [address] [place] [address] Cardiology 08/18/22 Farm Butcher Relationship Specialty Start Date End Date Mitch Mejia PCP - General Family Medicine 01/19/16 Meenu Garay MD, [address] [place] [address] Physician Radiation Oncology 09/06/16 Carla Almonte, RN Specialty Hot Kettle Tender Oncology 07/06/17 Meenu Garay MD, [address] [place] [address] Physician Radiation Oncology 04/12/19 Chanelle Westfall, PRINCE [address] [place] [address] Specialty Hot Kettle Tender Hematology/Oncology 03/12/21 [place], [place] S [address] [place] [address] Cardiology 08/18/22 Farm Butcher Relationship Specialty Start Date End Date Mitch Mejia PCP - General Family Medicine 01/19/16 Meenu Garay MD, [address] [place] [address] Physician Radiation Oncology 09/06/16 Carla Almonte, RN Specialty Hot Kettle Tender Oncology 07/06/17 Meenu Garay MD, [address] [place] [address] Physician Radiation Oncology 04/12/19 Chanelle Westfall, PRINCE [address] [place] [address] Specialty Hot Kettle Tender Hematology/Oncology 03/12/21 [place], [place] S [address] [place] [address] Cardiology 08/18/22 Farm Butcher Relationship Specialty Start Date End Date Mitch Mejia PCP - General Family Medicine 01/19/16 Meenu Garay MD, [address] [place] [address] Physician Radiation Oncology 09/06/16 Carla Almonte, RN Specialty Hot Kettle Tender Oncology 07/06/17 Meenu Garay MD, [address] [place] [address] Physician Radiation Oncology 04/12/19 Chanelle Westfall, RN [address] [place] [address] Specialty Hot Kettle Tender Hematology/Oncology 03/12/21 [place], [place] S [address] [place] [address] Cardiology 08/18/22 Farm Butcher Relationship Specialty Start Date End Date Mitch Mejia PCP - General Family Medicine 01/19/16 Meenu Garay MD, [address] [place] [address] Physician Radiation Oncology 09/06/16 Carla Almonte, RN Specialty Hot Kettle Tender Oncology 07/06/17 Meenu Garay MD, [address] [place] [address] Physician Radiation Oncology 04/12/19 Chanelle Westfall, PRINCE [address] [place] [address] Specialty Hot Kettle Tender Hematology/Oncology 03/12/21 [place], [place] S [address] [place] [address] Cardiology 08/18/22 Farm Butcher Relationship Specialty Start Date End Date Mitch Mejia PCP - General Family Medicine 01/19/16 Meenu Garay MD, [address] [place] [address] Physician Radiation Oncology 09/06/16 Carla Almonte, RN Specialty Hot Kettle Tender Oncology 07/06/17 Meenu Garay MD, [address] [place] [address] Physician Radiation Oncology 04/12/19 Chanelle Westfall, PRINCE [address] [place] [address] Specialty Hot Kettle Tender Hematology/Oncology 03/12/21 [place], [place] S [address] [place] [address] Cardiology 08/18/22 Farm Butcher Relationship Specialty Start Date End Date Mitch Mejia PCP - General Family Medicine 01/19/16 Meenu Garay MD, [address] [place] [address] Physician Radiation Oncology 09/06/16 Carla Almonte, RN Specialty Hot Kettle Tender Oncology 07/06/17 Meenu Garay MD, [address] [place] [address] Physician Radiation Oncology 04/12/19 Chanelle Westfall, PRINCE [address] [place] [address] Specialty Hot Kettle Tender Hematology/Oncology 03/12/21 [place], [place] S [address] [place] [address] Cardiology 08/18/22 Farm Butcher Relationship Specialty Start Date End Date Mitch Mejia PCP - General Family Medicine 01/19/16 Meenu Garay MD, [address] [place] [address] Physician Radiation Oncology 09/06/16 Carla Almonte RN Specialty Hot Kettle Tender Oncology 07/06/17 Meenu Garay MD, [address] [place] [address] Physician Radiation Oncology 04/12/19 Chanelle Westfall RN [address] [place] [address] Specialty Hot Kettle Tender Hematology/Oncology 03/12/21 [place], [place] S [address] [place] [address] Cardiology 08/18/22 Farm Butcher Relationship Specialty Start Date End Date Mitch Mejia PCP - General Family Medicine 01/19/16 Meenu Garay MD, [address] [place] [address] Physician Radiation Oncology 09/06/16 Carla Almonte RN Specialty Hot Kettle Tender Oncology 07/06/17 Meenu Garay MD, [address] [place] [address] Physician Radiation Oncology 04/12/19 Chanelle Westfall, PRINCE [address] [place] [address] Specialty Hot Kettle Tender Hematology/Oncology 03/12/21 [place], [place] S [address] [place] [address] Cardiology 08/18/22 Farm Butcher Relationship Specialty Start Date End Date Mitch Mejia PCP - General Family Medicine 01/19/16 Meenu Garay MD, [address] [place] [address] Physician Radiation Oncology 09/06/16 Carla Almonte, RN Specialty Hot Kettle Tender Oncology 07/06/17 Meenu Garay MD, [address] [place] [address] Physician Radiation Oncology 04/12/19 Chanelle Westfall, PRINCE [address] [place] [address] Specialty Hot Kettle Tender Hematology/Oncology 03/12/21 Mayco Galeano S [address] [facility] [place] [address] Cardiology 08/18/22 Farm Butcher Relationship Specialty Start Date End Date CharlesambrocioMitch PCP - General Family Medicine 01/19/16 Meenu Garay MD, [address] [place] [address] Physician Radiation Oncology 09/06/16 Carla Almonte RN Specialty Hot Kettle Tender Oncology 07/06/17 Meenu Garay MD, [address] [place] [address] Physician Radiation Oncology 04/12/19 Chanelle Westfall, PRINCE [address] [place] [address] Specialty Hot Kettle Tender Hematology/Oncology 03/12/21 12/13/22 [place] palacioril S [address] [place] [address] Cardiology 08/18/22 Farm Butcher Relationship Specialty Start Date End Date CharlesamborcioMitch PCP - General Family Medicine 01/19/16 Meenu Garay MD, MD [address] [place] [address] Physician Radiation Oncology 09/06/16 Carla Almonte RN Specialty Hot Kettle Tender Oncology 07/06/17 Meenu Garay MD, [address] [place] [address] Physician Radiation Oncology 04/12/19 Waleska[place] palacioril S [address] [place] [address] Cardiology 08/18/22 Farm Butcher Relationship Specialty Start Date End Date CharlesambrocioMitch PCP - General Family Medicine 01/19/16 Meenu Garay MD, MD [address] [place] [address] Physician Radiation Oncology 09/06/16 Carla Almonte, RN Specialty Hot Kettle Tender Oncology 07/06/17 Meenu Garay MD, MD [address] [place] [address] Physician Radiation Oncology 04/12/19 Malcom Galeanoril S [address] [place], [place] [address] Cardiology 08/18/22 Farm Butcher Relationship Specialty Start Date End Date Mitch Mejia PCP - General Family Medicine 01/19/16 Meenu Garay MD, MD [address] [place] [address] Physician Radiation Oncology 09/06/16 Carla Almonte RN Specialty Hot Kettle Tender Oncology 07/06/17 Meenu Garay MD, [address] [place] [address] Physician Radiation Oncology 04/12/19 Malcom Galeanoril S [address] [place] [address] Cardiology 08/18/22 Farm Butcher Relationship Specialty Start Date End Date Mitch Mejia PCP - General Family Medicine 01/19/16 Meenu Garay MD, MD [address] [place] [address] Physician Radiation Oncology 09/06/16 Carla Almonte RN Specialty Hot Kettle Tender Oncology 07/06/17 Meenu Garay MD, MD [address] [place] [address] Physician Radiation Oncology 04/12/19 Malcom Galeanoril S [address] [place] [address] Cardiology 08/18/22 Farm Butcher Relationship Specialty Start Date End Date Mitch Mejia PCP - General Family Medicine 01/19/16 Meenu Garay MD, MD [address] [place] [address] Physician Radiation Oncology 09/06/16 Carla Almonte, RN Specialty Hot Kettle Tender Oncology 07/06/17 Meenu Garay MD, MD [address] [place] [address] Physician Radiation Oncology 04/12/19 Mayco Galeano S [address] [place] [address] Cardiology 08/18/22 Farm Butcher Relationship Specialty Start Date End Date Mitch Mejia PCP - General Family Medicine 01/19/16 Meenu Garay MD, MD [address] [place] [address] Physician Radiation Oncology 09/06/16 Carla Almonte, RN Specialty Hot Kettle Tender Oncology 07/06/17 Meenu Garay MD, MD [address] [place] [address] Physician Radiation Oncology 04/12/19 Mayco Galeano S [address] [place] [address] Cardiology 08/18/22 Team Status: Inactive Member Role Status Dates Dr. Mitch Mejia MD Primary Care Provider, Referrin g Provider Active Renetta Yang PRINCIPAL PLANNER, PRINCIPAL PLANNER-C Attending Provider Active Team Status: Inactive Member Role Status Dates Dr. Mitch Mejia MD Primary Care Provider Active Dr. Rip Rivers DO Attending Provider, Referring Prov ider Active Farm Butcher Relationship Specialty Start Date End Date Mitch Mejia PCP - General Family Medicine 01/19/16 Meenu Garay MD, MD [address] [place], [place] [address] Physician Radiation Oncology 09/06/16 Carla Almonte RN Specialty Hot Kettle Tender Oncology 07/06/17 Meenu Garay MD, [address] [place] [address] Physician Radiation Oncology 04/12/19 Mayco Galeano [address] [place], [place] [address] Cardiology 08/18/22 Farm Butcher Relationship Specialty Start Date End Date Mitch Mejia PCP - General Family Medicine 01/19/16 Meenu Garay MD, MD [address] [place] [address] Physician Radiation Oncology 09/06/16 Carla Almonte, RN Specialty Hot Kettle Tender Oncology 07/06/17 Meenu Garay MD, [address] [place], [place] [address] Physician Radiation Oncology 04/12/19 Mayco Galeano [address] [place], [place] [id number] Cardiology 08/18/22 Team Status: Active Member Role [...] Other Provide r Active Dr. Malika Garay , Attending Provider Active Farm Butcher Relationship Specialty Start Date End Date Mitch Mejia PCP - General Family Medicine 01/19/16 Meenu Garay MD, MD [address] [place], [place] [address] Physician Radiation Oncology 09/06/16 Carla Almonte RN Specialty Hot Kettle Tender Oncology 07/06/17 Meenu Garay MD, MD [address] [place], [place] [address] Physician Radiation Oncology 04/12/19 Mayco Galeano [address] [place], [place] [address] Cardiology 08/18/22 Farm Butcher Relationship Specialty Start Date End Date Mitch Mejia PCP - General Family Medicine 01/19/16 Meenu Garay MD, [address] [place] [address] Physician Radiation Oncology 09/06/16 Carla Almonte RN Specialty Hot Kettle Tender Oncology 07/06/17 Meenu Garay MD, [address] [place] [address] Physician Radiation Oncology 04/12/19 Mayco Galeano MD [address] [place] [address] Cardiology 08/18/22 Farm Butcher Relationship Specialty Start Date End Date Mitch Mejia PCP - General Family Medicine 01/19/16 Meenu Garay MD, [address] [place] [address] Physician Radiation Oncology 09/06/16 Carla Almonte RN Specialty Hot Kettle Tender Oncology 07/06/17 Meenu Garay MD, [address] [place] [address] Physician Radiation Oncology 04/12/19 Mayco Galeano MD [address] [place] [address] Cardiology 08/18/22 Farm Butcher Relationship Specialty Start Date End Date Mitch Mejia PCP - General Family Medicine 01/19/16 Meenu Garay MD, MD [address] [place] [address] Physician Radiation Oncology 09/06/16 Carla Almonte RN Specialty Hot Kettle Tender Oncology 07/06/17 Meenu Garay MD, [address] [place] [address] Physician Radiation Oncology 04/12/19 Mayco Galeano MD [address] [place] [address] Cardiology 08/18/22 Farm Butcher Relationship Specialty Start Date End Date Mitch Mejia MD PCP - General Family Medicine 01/19/16 Meenu Garay MD, [address] [place] [address] Physician Radiation Oncology 09/06/16 Carla Almonte RN Specialty Hot Kettle Tender Oncology 07/06/17 Meenu Garay MD, [address] [place] [address] Physician Radiation Oncology 04/12/19 Mayco Galeano MD [address] [place], [place] [address] Cardiology 08/18/22 Farm Butcher Relationship Specialty Start Date End Date Mitch Mejia MD PCP - General Family Medicine 01/19/16 Meenu Garay MD, [address] [place] [address] Physician Radiation Oncology 09/06/16 Carla Almonte, RN Specialty Hot Kettle Tender Oncology 07/06/17 Meenu Garay MD, [address] [place] [address] Physician Radiation Oncology 04/12/19 Mayco Galeano MD [address] [place] [address] Cardiology 08/18/22 Farm Butcher Relationship Specialty Start Date End Date Mitch Mejia MD PCP - General Family Medicine 01/19/16 Meenu Garay MD, [address] [place] [address] Physician Radiation Oncology 09/06/16 Carla Almonte RN Specialty Hot Kettle Tender Oncology 07/06/17 Meenu Garay MD, [address] [place] [address] Physician Radiation Oncology 04/12/19 Mayco Galeano MD [address] [place], [place] [id number] Cardiology 08/18/22 Farm Butcher Relationship Specialty Start Date End Date Mitch Mejia MD PCP - General Family Medicine 01/19/16 Meenu Garay MD, [address] [place] [address] Physician Radiation Oncology 09/06/16 Carla Almonte, RN Specialty Hot Kettle Tender Oncology 07/06/17 Meenu Garay MD, [address] [place] [address] Physician Radiation Oncology 04/12/19 Mayco Galeano MD [address] [place] [address] Cardiology 08/18/22 Farm Butcher Relationship Specialty Start Date End Date Mitch Mejia MD PCP - General Family Medicine 01/19/16 Meenu Garay MD, [address] [place] [address] Physician Radiation Oncology 09/06/16 Carla Almonte RN Specialty Hot Kettle Tender Oncology 07/06/17 Meenu Garay MD, MD [address] [place] [place] [address] Physician Radiation Oncology 04/12/19 Mayco Galeano MD [address] [place] [address] Cardiology 08/18/22 Farm Butcher Relationship Specialty Start Date End Date Mitch Mejia MD PCP - General Family Medicine 01/19/16 Meenu Garay MD, [address] [place] [address] Physician Radiation Oncology 09/06/16 Carla Almonte, RN Specialty Hot Kettle Tender Oncology 07/06/17 Meenu Garay MD, [address] [place] [address] Physician Radiation Oncology 04/12/19 Mayco Galeano MD [address] [place] [address] Cardiology 08/18/22 Farm Butcher Relationship Specialty Start Date End Date Mitch Mejia MD PCP - General Family Medicine 01/19/16 Meenu Garay MD, [address] [place] [address] Physician Radiation Oncology 09/06/16 Carla Almonte, RN Specialty Hot Kettle Tender Oncology 07/06/17 Meenu Garay MD, [address] [place] [address] Physician Radiation Oncology 04/12/19 Chanelle Westfall, PRINCE [address] [place] [address] Specialty Hot Kettle Tender Hematology/Oncology 03/12/21 12/13/22 Mayco Galeano MD [address] [place] [address] Cardiology 08/18/22 Farm Butcher Relationship Specialty Start Date End Date Mitch Mejia MD PCP - General Family Medicine 01/19/16 Meenu Garay MD, [address] [place] [address] Physician Radiation Oncology 09/06/16 Carla Almonte RN Specialty Hot Kettle Tender Oncology 07/06/17 Meenu Garay MD, [address] [place] [address] Physician Radiation Oncology 04/12/19 Chanelle Westfall, PRINCE [address] [place] [address] Specialty Hot Kettle Tender Hematology/Oncology 03/12/21 12/13/22 Mayco Galeano MD [address] [facility] [address] [place] [address] Cardiology 08/18/22 Farm Butcher Relationship Specialty Start Date End Date Mitch Mejia MD PCP - General Family Medicine 01/19/16 Meenu Garay MD, [address] [place] [address] Physician Radiation Oncology 09/06/16 Carla Almonte RN Specialty Hot Kettle Tender Oncology 07/06/17 Meenu Garay MD, [address] [place] [address] Physician Radiation Oncology 04/12/19 Chanelle Westfall, PRINCE [address] [place] [address] Specialty Hot Kettle Tender Hematology/Oncology 03/12/21 12/13/22 Mayco Galeano MD [address] [place] [address] Cardiology 08/18/22 Farm Butcher Relationship Specialty Start Date End Date Mitch Mejia MD PCP - General Family Medicine 01/19/16 Meenu Garay MD, MD [address] [place] [address] Physician Radiation Oncology 09/06/16 Carla Almonte RN Specialty Hot Kettle Tender Oncology 07/06/17 Meenu Garay MD, [address] [place] [address] Physician Radiation Oncology 04/12/19 Chanelle Westfall, PRINCE [address] [place] [address] Specialty Hot Kettle Tender Hematology/Oncology 03/12/21 12/13/22 Farm Butcher Relationship Specialty Start Date End Date Mitch Mejia MD PCP - General Family Medicine 01/19/16 Meenu Garay MD, MD [address] [place] [address] Physician Radiation Oncology 09/06/16 Carla Almonte RN Specialty Hot Kettle Tender Oncology 07/06/17 Meenu Garay MD, MD [address] [place] [address] Physician Radiation Oncology 04/12/19 Mayco Galeano MD [address] [place] [address] Cardiology 08/18/22 Farm Butcher Relationship Specialty Start Date End Date Mitch Mejia MD PCP - General Family Medicine 01/19/16 Meenu Garay MD, MD [address] [place] [address] Physician Radiation Oncology 09/06/16 Carla Almonte RN Specialty Hot Kettle Tender Oncology 07/06/17 Meenu Garay MD, [address] [place] [address] Physician Radiation Oncology 04/12/19 Mayco Galeano MD [address] [place] [address] Cardiology 08/18/22 Farm Butcher Relationship Specialty Start Date End Date Mitch Mejia MD PCP - General Family Medicine 01/19/16 Meenu Garay MD, MD [address] [place] [address] Physician Radiation Oncology 09/06/16 Carla Almonte RN Specialty Hot Kettle Tender Oncology 07/06/17 Meenu Garay MD, MD [address] [place] [address] Physician Radiation Oncology 04/12/19 Chanelle Westfall, PRINCE [address] [place] [address] Specialty Hot Kettle Tender Hematology/Oncology 03/12/21 12/13/22 Mayco Galeano MD [address] [place] [address] Cardiology 08/18/22 Farm Butcher Relationship Specialty Start Date End Date Mitch Mejia MD PCP - General Family Medicine 01/19/16 Meenu Garay MD, MD [address] [place] [address] Physician Radiation Oncology 09/06/16 Carla Almonte RN Specialty Hot Kettle Tender Oncology 07/06/17 Meenu Garay MD, MD [address] [place] [address] Physician Radiation Oncology 04/12/19 Mayco Galeano MD [address] [place] [address] Cardiology 08/18/22 Farm Butcher Relationship Specialty Start Date End Date Mitch Mejia MD PCP - General Family Medicine 01/19/16 Meenu Garay MD, MD [address] [place] [address] Physician Radiation Oncology 09/06/16 Doup, Carla, RN Specialty Hot Kettle Tender Oncology 07/06/17 Meenu Garay MD, MD [address] [place] [address] Physician Radiation Oncology 04/12/19 Chanelle Westfall, PRINCE [address] [place] [address] Specialty Hot Kettle Tender Hematology/Oncology 03/12/21 12/13/22 Farm Butcher Relationship Specialty Start Date End Date Mitch Mejia MD PCP - General Family Medicine 01/19/16 Meenu Garay MD, MD [address] [place] [address] Physician Radiation Oncology 09/06/16 Carla Almonte RN Specialty Hot Kettle Tender Oncology 07/06/17 Meenu Garay MD, MD [address] [place] [address] Physician Radiation Oncology 04/12/19 Chanelle Westfall, PRINCE [address] [place] [address] Specialty Hot Kettle Tender Hematology/Oncology 03/12/21 12/13/22 Farm Butcher Relationship Specialty Start Date End Date Mitch Mejia MD PCP - General Family Medicine 01/19/16 Meenu Garay MD, MD [address] [place] [address] Physician Radiation Oncology 09/06/16 Carla Almonte RN Specialty Hot Kettle Tender Oncology 07/06/17 Meenu Garay MD, [address] [place] [address] Physician Radiation Oncology 04/12/19 Chanelle Westfall, PRINCE [address] [place] [address] Specialty Hot Kettle Tender Hematology/Oncology 03/12/21 12/13/22 Farm Butcher Relationship Specialty Start Date End Date Mitch Mejia MD PCP - General Family Medicine 01/19/16 Meenu Garay MD, MD [address] [place] [address] Physician Radiation Oncology 09/06/16 Carla Almonte RN Specialty Hot Kettle Tender Oncology 07/06/17 Meenu Garay MD, [address] [place] [address] Physician Radiation Oncology 04/12/19 Mayco Galeano MD [address] [place] [address] Cardiology 08/18/22 Farm Butcher Relationship Specialty Start Date End Date Williams Farrell DO [address] [facility] [place] [address] PCP - General Internal Medicine 04/26/23 Meenu Garay MD, MD [address] [place] [address] Physician Radiation Oncology 09/06/16 Doup, Carla, RN Specialty Hot Kettle Tender Oncology 07/06/17 Meenu Garay MD, [address] [place] [address] Physician Radiation Oncology 04/12/19 Mayco Galeano MD [address] [place] [address] Cardiology 08/18/22 Farm Butcher Relationship Specialty Start Date End Date Williams Farrell DO [address] [facility] [place] [address] PCP - General Internal Medicine 04/26/23 Meenu Garay MD, [address] [place] [address] Physician Radiation Oncology 09/06/16 Carla Almonte RN Specialty Hot Kettle Tender Oncology 07/06/17 Meenu Garay MD, [address] [place] [address] Physician Radiation Oncology 04/12/19 Mayco Galeano MD [address] [place] [address] Cardiology 08/18/22 Farm Butcher Relationship Specialty Start Date End Date Williams Farrell DO [address] [facility] [place] [address] PCP - General Internal Medicine 04/26/23 Meenu Garay MD, [address] [place] [address] Physician Radiation Oncology 09/06/16 Carla Almonte, RN Specialty Hot Kettle Tender Oncology 07/06/17 Meenu Garay MD, MD [address] [place] [address] Physician Radiation Oncology 04/12/19 Mayco Galeano MD [address] [address] Cardiology 08/18/22 Team Status: Active Member Role Status Dates Dr. Mitch Mejia MD Family Provider Active Dr. Williams Farrell DO Primary Care Provider Active Team Status: Inactive Member Role Status Dates Dr. Mitch Mejia MD Referring Provider Active Renetta Yang PRINCIPAL PLANNER, PRINCIPAL PLANNER-C Attending Provider Active Dr. Williams Farrell DO Primary Care Provider Active Team Status: Active Member Role Status Dates Dr. Williams Farrell DO Primary Care Provider Active Dr. Mayco Galeano MD Attending Provider Active Team Status: Inactive Member Role Status Dates Dr. Rip Rivers DO Attending Provider, Referring Prov ider Active Dr. Williams Farrell DO Primary Care Provider Active Farm Butcher Relationship Specialty Start Date End Date Williams Farrell DO [address] [facility] Physician [place], [place] [id number] PCP - General Internal Medicine 04/26/23 Meenu Garay MD [address] [place] [address] Physician Radiation Oncology 09/06/16 Carla Almonte, RN Specialty Hot Kettle Tender Oncology 07/06/17 Meenu Garay MD [address] [place] [address] Physician Radiation Oncology 04/12/19 Mayco Galeano MD [address] [address] Cardiology 08/18/22 Farm Butcher Relationship Specialty Start Date End Date Williams Farrell DO [address] [facility] [place] [address] PCP - General Internal Medicine 04/26/23 Meenu Garay MD [address] [place] [address] Physician Radiation Oncology 09/06/16 Carla Almonte, RN Specialty Hot Kettle Tender Oncology 07/06/17 Meenu Garay MD [address] [place] [address] Physician Radiation Oncology 04/12/19 Mayco Galeano MD [address] [place] [address] Cardiology 08/18/22 Farm Butcher Relationship Specialty Start Date End Date Williams Farrell DO [address] [facility] [place] [address] PCP - General Internal Medicine 04/26/23 Meenu Garay MD [address] [place] [address] Physician Radiation Oncology 09/06/16 Carla Almonte, RN Specialty Hot Kettle Tender Oncology 07/06/17 Meenu Garay MD [address] [place] [address] Physician Radiation Oncology 04/12/19 Mayco Galeano MD [address] [place] [address], [place] [address] Cardiology 08/18/22 Farm Butcher Relationship Specialty Start Date End Date Williams Farrell DO [address] [facility] [place] [address] PCP - General Internal Medicine 04/26/23 Meenu Garay MD [address] [place] [address] Physician Radiation Oncology 09/06/16 Carla Almonte RN Specialty Hot Kettle Tender Oncology 07/06/17 Meenu Garay MD [address] [place] [address] Physician Radiation Oncology 04/12/19 Mayco Galeano MD [address] [place] [address], [place] [address] Cardiology 08/18/22 Farm Butcher Relationship Specialty Start Date End Date Williams Farrell DO [address] [facility] [place] [address] PCP - General Internal Medicine 04/26/23 Meenu Garay MD [address] [place] [address] Physician Radiation Oncology 09/06/16 Carla Almonte RN Specialty Hot Kettle Tender Oncology 07/06/17 Meenu Garay MD [address] [place] [address] Physician Radiation Oncology 04/12/19 Mayco Galeano MD [address] [place] [address], [place] [address] Cardiology 08/18/22 Farm Butcher Relationship Specialty Start Date End Date Williams Farrell DO [address] [facility] [place] [address] PCP - General Internal Medicine 04/26/23 Meenu Garay MD [address] [place] [address] Physician Radiation Oncology 09/06/16 Carla Almonte RN Specialty Hot Kettle Tender Oncology 07/06/17 Meenu Garay MD [address] [place] [address] Physician Radiation Oncology 04/12/19 Mayco Galeano MD [address] [place] [address], [place] [address] Cardiology 08/18/22 Farm Butcher Relationship Specialty Start Date End Date Williams Farrell DO [address] [facility] [place] [address] PCP - General Internal Medicine 04/26/23 Meenu Garay MD [address] [place] [address] Physician Radiation Oncology 09/06/16 Carla Almonte RN Specialty Hot Kettle Tender Oncology 07/06/17 Meenu Garay MD [address] [place] [address] Physician Radiation Oncology 04/12/19 Mayco Galeano MD [address] [facility] [address] [place] [address] Cardiology 08/18/22 Farm Butcher Relationship Specialty Start Date End Date Williams Farrell DO [address] [facility] Physician [place] [address] PCP - General Internal Medicine 04/26/23 Meenu Garay MD [address] [place] [address] Physician Radiation Oncology 09/06/16 Carla Almonte, PRINCE Specialty Hot Kettle Tender Oncology 07/06/17 Meenu Garay MD [address] [place] [address] Physician Radiation Oncology 04/12/19 Mayco Galeano MD [address] [facility] [address] [place] [address] Cardiology 08/18/22 Team Status: Inactive Member Role Status Dates Dr. Williams Farrell DO Primary Care Provider Active Dr. Eze Mack MD Emergency Provider Active Farm Butcher Relationship Specialty Start Date End Date Williams Farrell DO [address] [facility] [place] [address] PCP - General Internal Medicine 04/26/23 Meenu Garay MD [address] [place] [address] Physician Radiation Oncology 09/06/16 Carla Almonte, RN Specialty Hot Kettle Tender Oncology 07/06/17 Meenu Garay MD [address] [place] [address] Physician Radiation Oncology 04/12/19 Mayco Galeano MD [address] [address] Cardiology 08/18/22 Farm Butcher Relationship Specialty Start Date End Date Williams Farrell DO [address] [facility] Physician [place], [place] [id number] PCP - General Internal Medicine 04/26/23 Meenu Garay MD [address] [place] [address] Physician Radiation Oncology 09/06/16 Carla Almonte RN Specialty Hot Kettle Tender Oncology 07/06/17 Meenu Garay MD [address] [place] [address] Physician Radiation Oncology 04/12/19 Mayco Galeano MD [address] [address] Cardiology 08/18/22 Farm Butcher Relationship Specialty Start Date End Date Williams Farrell DO [address] [facility] Physician [place], [place] [id number] PCP - General Internal Medicine 04/26/23 Meenu Garay MD [address] [place] [address] Physician Radiation Oncology 09/06/16 Carla Almonte, RN Specialty Hot Kettle Tender Oncology 07/06/17 Meenu Garay MD [address] [place] [address] Physician Radiation Oncology 04/12/19 Mayco Galeano MD [address] [place] [address] Cardiology 08/18/22 Farm Butcher Relationship Specialty Start Date End Date Williams Farrell DO [address] [facility] [place] [address] PCP - General Internal Medicine 04/26/23 Meenu Garay MD [address] [place] [address] Physician Radiation Oncology 09/06/16 Carla Almnote RN Specialty Hot Kettle Tender Oncology 07/06/17 Meenu Garay MD [address] [place] [address] Physician Radiation Oncology 04/12/19 Mayco Galeano MD [address] [place] [address] Cardiology 08/18/22 Farm Butcher Relationship Specialty Start Date End Date Williams Farrell DO [address] [facility] [place] [address] PCP - General Internal Medicine 04/26/23 Meenu Garay MD [address] [place] [address] Physician Radiation Oncology 09/06/16 Carla Almonte RN Specialty Hot Kettle Tender Oncology 07/06/17 Meenu Garay MD [address] [place] [address] Physician Radiation Oncology 04/12/19 Mayco Galeano MD [address] [place] [address] Cardiology 08/18/22 Farm Butcher Relationship Specialty Start Date End Date Williams Farrell DO [address] [facility] [place] [address] PCP - General Internal Medicine 04/26/23 Meenu Garay MD [address] [place] [address] Physician Radiation Oncology 09/06/16 Carla Almonte RN Specialty Hot Kettle Tender Oncology 07/06/17 Meenu Garay MD [address] [place] [address] Physician Radiation Oncology 04/12/19 Mayco Galeano MD [address] [place], [place] [address] Cardiology 08/18/22 Farm Butcher Relationship Specialty Start Date End Date Williams Farrell DO [address] [facility] [place] [address] PCP - General Internal Medicine 04/26/23 Meenu Garay MD [address] [place] [address] Physician Radiation Oncology 09/06/16 Carla Almonte RN Specialty Hot Kettle Tender Oncology 07/06/17 Meenu Garay MD [address] [place] [address] Physician Radiation Oncology 04/12/19 Mayco Galeano MD [address] [place] [address] Cardiology 08/18/22 Farm Butcher Relationship Specialty Start Date End Date Williams Farrell DO [address] [facility] [place] [address] PCP - General Internal Medicine 04/26/23 Meenu Garay MD [address] [place] [address] Physician Radiation Oncology 09/06/16 Carla Almonte RN Specialty Hot Kettle Tender Oncology 07/06/17 Meenu Garay MD [address] [place] [address] Physician Radiation Oncology 04/12/19 Mayco Galeano MD [address] [place] [address] Cardiology 08/18/22 Farm Butcher Relationship Specialty Start Date End Date Williams Farrell DO [address] [facility] [place] [address] PCP - General Internal Medicine 04/26/23 Meenu Garay MD [address] [place] [address] Physician Radiation Oncology 09/06/16 Carla Almonte RN Specialty Hot Kettle Tender Oncology 07/06/17 Meenu Garya MD [address] [place] [address] Physician Radiation Oncology 04/12/19 Mayco Galeano MD [address] [place] [address] Cardiology 08/18/22 Farm Butcher Relationship Specialty Start Date End Date Williams Farrell DO [address] [facility] [place] [address] PCP - General Internal Medicine 04/26/23 Meenu Garay MD [address] [place] [address] Physician Radiation Oncology 09/06/16 Carla Almonte RN Specialty Hot Kettle Tender Oncology 07/06/17 Meenu Garay MD [address] [place] [address] Physician Radiation Oncology 04/12/19 Mayco Galeano MD [address] [place] [address] Cardiology 08/18/22 Farm Butcher Relationship Specialty Start Date End Date Williams Farrell DO [address] [facility] Physician [place] [address] PCP - General Internal Medicine 04/26/23 Meenu Garay MD [address] [place] [address] Physician Radiation Oncology 09/06/16 Carla Almonte, RN Specialty Hot Kettle Tender Oncology 07/06/17 Meenu Garay MD [address] [place] [address] Physician Radiation Oncology 04/12/19 Mayco Galeano MD [address] [facility] [place] [address] Cardiology 08/18/22 Farm Butcher Relationship Specialty Start Date End Date Williams Farrell DO [address] [facility] Physician [place] [address] PCP - General Internal Medicine 04/26/23 Meenu Garay MD [address] [place] [address] Physician Radiation Oncology 09/06/16 Carla Almonte RN Specialty Hot Kettle Tender Oncology 07/06/17 Meenu Garay MD [address] [place] [address] Physician Radiation Oncology 04/12/19 Mayco Galeano MD [address] [place] [address] Cardiology 08/18/22 Farm Butcher Relationship Specialty Start Date End Date Williams Farrell DO [address] [facility] [place] [address] PCP - General Internal Medicine 04/26/23 Meenu Garay MD [address] [place] [address] Physician Radiation Oncology 09/06/16 Carla Almonte, RN Specialty Hot Kettle Tender Oncology 07/06/17 Meenu Garay MD [address] [place] [address] Physician Radiation Oncology 04/12/19 Mayco Galeano MD [address] [place] [address] Cardiology 08/18/22 Farm Butcher Relationship Specialty Start Date End Date Williams Farrell DO [address] [facility] [place] [address] PCP - General Internal Medicine 04/26/23 Meenu Garay MD [address] [place] [address] Physician Radiation Oncology 09/06/16 Carla Almonte RN Specialty Hot Kettle Tender Oncology 07/06/17 Meenu Garay MD [address] [place] [address] Physician Radiation Oncology 04/12/19 Mayco Galeano MD [address] [facility] [address] [place] [address] Cardiology 08/18/22 Farm Butcher Relationship Specialty Start Date End Date Williams Farrell DO [address] [facility] [place] [address] PCP - General Internal Medicine 04/26/23 Meenu Garay MD [address] [place] [address] Physician Radiation Oncology 09/06/16 Carla Almonte, RN Specialty Hot Kettle Tender Oncology 07/06/17 Meenu Garay MD [address] [place] [address] Physician Radiation Oncology 04/12/19 Mayco Galeano MD [address] [place] [address], [place] [address] Cardiology 08/18/22 Farm Butcher Relationship Specialty Start Date End Date Williams Farrell DO [address] [facility] [place] [address] PCP - General Internal Medicine 04/26/23 Meenu Garay MD [address] [place] [place] [address] Physician Radiation Oncology 09/06/16 Carla Almonte RN Specialty Hot Kettle Tender Oncology 07/06/17 Meenu Garay MD [address] [place] [address] Physician Radiation Oncology 04/12/19 Mayco Galeano MD [address] [place] [address] Cardiology 08/18/22 Farm Butcher Relationship Specialty Start Date End Date Williams Farrell DO [address] [facility] [place] [address] PCP - General Internal Medicine 04/26/23 Meenu Garay MD [address] [place] [address] Physician Radiation Oncology 09/06/16 Carla Almonte, RN Specialty Hot Kettle Tender Oncology 07/06/17 Meenu Garay MD [address] [place] [address] Physician Radiation Oncology 04/12/19 Mayco Galeano MD [address] [address] Cardiology 08/18/22 Farm Butcher Relationship Specialty Start Date End Date Williams Farrell DO [address] [facility] [place] [address] PCP - General Internal Medicine 04/26/23 Meenu Garay MD [address] [place] [address] Physician Radiation Oncology 09/06/16 Carla Almonte RN Specialty Hot Kettle Tender Oncology 07/06/17 Meenu Garay MD [address] [place] [address] Physician Radiation Oncology 04/12/19 Mayco Galeano MD [address] [place] [address] Cardiology 08/18/22 Farm Butcher Relationship Specialty Start Date End Date Williams Farrell DO [address] [facility] Physician [facility] [address] PCP - General Internal Medicine 04/26/23 Meenu Garay MD [address] [place] [address] Physician Radiation Oncology 09/06/16 Carla Almonte, PRINCE Specialty Hot Kettle Tender Oncology 07/06/17 Meenu Garay MD [address] [place] [address] Physician Radiation Oncology 04/12/19 Mayco Galeano MD [address] [place] [address] Cardiology 08/18/22 Rip Rivers DO [address] [place] [address] Hematology/Oncology 10/14/23 Farm Butcher Relationship Specialty Start Date End Date Williams Farrell DO [address] [facility] Physician [facility] [place] [address] PCP - General Internal Medicine 04/26/23 Meenu Garay MD [address] [place] [address] Physician Radiation Oncology 09/06/16 Carla Almonte RN Specialty Hot Kettle Tender Oncology 07/06/17 Meenu Garay MD [address] [place] [address] Physician Radiation Oncology 04/12/19 Mayco Galeano MD [address] [place] [address] Cardiology 08/18/22 Rip Rivers DO [address] [place] [address] Hematology/Oncology 10/14/23 Farm Butcher Relationship Specialty Start Date End Date Williams Farrell DO [address] [facility] [place] [address] PCP - General Internal Medicine 04/26/23 Meenu Garay MD [address] [place] [address] Physician Radiation Oncology 09/06/16 Carla Almonte, RN Specialty Hot Kettle Tender Oncology 07/06/17 Meenu Garay MD [address] [place] [address] Physician Radiation Oncology 04/12/19 Mayco Galeano MD [address] [place] [address] Cardiology 08/18/22 Rip Rivers DO [address] [place] [address] Hematology/Oncology 10/14/23 Farm Butcher Relationship Specialty Start Date End Date Williams Farrell DO [address] [facility] [place] [address] PCP - General Internal Medicine 04/26/23 Meenu Garay MD [address] [place] [address] Physician Radiation Oncology 09/06/16 Carla Almonte RN Specialty Hot Kettle Tender Oncology 07/06/17 Meenu Garay MD [address] [place] [address] Physician Radiation Oncology 04/12/19 Mayco Galeano MD [address] [facility] [place] [address] Cardiology 08/18/22 Rip Rivers DO [address] [place] [address] Hematology/Oncology 10/14/23 Farm Butcher Relationship Specialty Start Date End Date Williams Farrell DO [address] [facility] [place] [address] PCP - General Internal Medicine 04/26/23 Meenu Garay MD [address] [place] [address] Physician Radiation Oncology 09/06/16 Carla Almonte RN Specialty Hot Kettle Tender Oncology 07/06/17 Meenu Garay MD [address] [place] [address] Physician Radiation Oncology 04/12/19 Mayco Galeano MD [address] [place] [address] Cardiology 08/18/22 Rip Rivers DO [address] [place] [address] Hematology/Oncology 10/14/23 Farm Butcher Relationship Specialty Start Date End Date Williams Farrell DO [address] [facility] [place] [address] PCP - General Internal Medicine 04/26/23 Meenu Garay MD [address] [place] [address] Physician Radiation Oncology 09/06/16 Carla Almonte RN Specialty Hot Kettle Tender Oncology 07/06/17 Meenu Garay MD [address] [place] [address] Physician Radiation Oncology 04/12/19 Mayco Galeano MD [address] [place] [address] Cardiology 08/18/22 Rip Rivers DO [address] [place] [address] Hematology/Oncology 10/14/23 Farm Butcher Relationship Specialty Start Date End Date Williams Farrell DO [address] [facility] Physician [place], [place] [id number] PCP - General Internal Medicine 04/26/23 Meenu Garay MD [address] [place] [place] [address] Physician Radiation Oncology 09/06/16 Carla Almonte, RN Specialty Hot Kettle Tender Oncology 07/06/17 Meenu Garay MD [address] [place] [address] Physician Radiation Oncology 04/12/19 Mayco Galeano MD [address] [place] [address] Cardiology 08/18/22 Rip Rivers DO [address] [place] [address] Hematology/Oncology 10/14/23 Farm Butcher Relationship Specialty Start Date End Date Williams Farrell DO [address] [facility] Physician [place], [place] [id number] PCP - General Internal Medicine 04/26/23 Meenu Garay MD [address] [place] [address] Physician Radiation Oncology 09/06/16 Carla Almonte, RN Specialty Hot Kettle Tender Oncology 07/06/17 Meenu Garay MD [address] [place] [address] Physician Radiation Oncology 04/12/19 Mayco Galeano MD [address] [place] [address] Cardiology 08/18/22 Rip Rivers DO [address] [place] [address] Hematology/Oncology 10/14/23 Farm Butcher Relationship Specialty Start Date End Date Williams Farrell DO [address] [facility] Physician [facility] [place] [address] PCP - General Internal Medicine 04/26/23 Meenu Garay MD [address] [place] [address] Physician Radiation Oncology 09/06/16 Carla Almonte RN Specialty Hot Kettle Tender Oncology 07/06/17 Meenu Garay MD [address] [place] [address] Physician Radiation Oncology 04/12/19 Mayco Galeano MD [address] [facility] [place] [address] Cardiology 08/18/22 Rip Rivers DO [address] [place] [address] Hematology/Oncology 10/14/23 Farm Butcher Relationship Specialty Start Date End Date Williams Farrell DO [address] [facility] Physician [facility] [place] [address] PCP - General Internal Medicine 04/26/23 Meenu Garay MD [address] [place] [address] Physician Radiation Oncology 09/06/16 Carla Almonte, RN Specialty Hot Kettle Tender Oncology 07/06/17 Meenu Garay MD [address] [address] Physician Radiation Oncology 04/12/19 Mayco Galeano MD [address] [place] [address] Cardiology 08/18/22 Rip Rivers DO [address] [place] [address] Hematology/Oncology 10/14/23 Farm Butcher Relationship Specialty Start Date End Date Williams Farrell DO [address] [facility] [place] [address] PCP - General Internal Medicine 06/16/23 Farm Butcher Relationship Specialty Start Date End Date Williams Farrell DO [address] [facility] [place] [address] PCP - General Internal Medicine 04/26/23 Meenu Garay MD [address] [place] [address] Physician Radiation Oncology 09/06/16 Carla Almonte RN Specialty Hot Kettle Tender Oncology 07/06/17 Meenu Garay MD [address] [place] [address] Physician Radiation Oncology 04/12/19 Mayco Galeano MD [address] [place] [address] Cardiology 08/18/22 Rip Rivers DO [address] [place] [place] [address] Hematology/Oncology 10/14/23 Farm Butcher Relationship Specialty Start Date End Date Williams Farrell DO [address] [facility] [place] [address] PCP - General Internal Medicine 04/26/23 Meenu Garay MD [address] [place] [place] [address] Physician Radiation Oncology 09/06/16 Carla Almonte, PRINCE Specialty Hot Kettle Tender Oncology 07/06/17 Meenu Garay MD [address] [place] [place] [address] Physician Radiation Oncology 04/12/19 Mayco Galeano MD [address] [place] [address] Cardiology 08/18/22 Rip Rivers DO [address] [place] [address] Hematology/Oncology 10/14/23 Farm Butcher Relationship Specialty Start Date End Date Williams Farrell DO [address] [facility] [place] [address] PCP - General Internal Medicine 04/26/23 Meenu Garay MD [address] [place] [address] Physician Radiation Oncology 09/06/16 Carla Almonte RN Specialty Hot Kettle Tender Oncology 07/06/17 Meenu Garay MD [address] [place] [address] Physician Radiation Oncology 04/12/19 Mayco Galeano MD [address] [place] [address] Cardiology 08/18/22 Rip Rivers DO [address] [place] [address] Hematology/Oncology 10/14/23 Farm Butcher Relationship Specialty Start Date End Date Williams Farrell DO [address] [facility] [place] [address] PCP - General Internal Medicine 04/26/23 Meenu Garay MD [address] [place] [address] Physician Radiation Oncology 09/06/16 Carla Almonte RN Specialty Hot Kettle Tender Oncology 07/06/17 Meenu Garay MD [address] [place] [address] Physician Radiation Oncology 04/12/19 Mayco Galeano MD [address] [place] [address] Cardiology 08/18/22 Rip Rivers DO [address] [place] [address] Hematology/Oncology 10/14/23 Farm Butcher Relationship Specialty Start Date End Date Williams Farrell DO [address] [facility] [place] [address] PCP - General Internal Medicine 04/26/23 Meenu Garay MD [address] [place] [address] Physician Radiation Oncology 09/06/16 Carla Almonte RN Specialty Hot Kettle Tender Oncology 07/06/17 Meenu Garay MD [address] [place] [address] Physician Radiation Oncology 04/12/19 Mayco Galeano MD [address] [place] [address] Cardiology 08/18/22 Rip Rivers DO [address] [place] [address] Hematology/Oncology 10/14/23 Farm Butcher Relationship Specialty Start Date End Date Williams Farrell DO [address] [facility] [place] [address] PCP - General Internal Medicine 04/26/23 Meenu Garay MD [address] [place] [place] [address] Physician Radiation Oncology 09/06/16 Carla Almonte RN Specialty Hot Kettle Tender Oncology 07/06/17 Meenu Garay MD [address] [place] [place] [address] Physician Radiation Oncology 04/12/19 Mayco Galeano MD [address] [place] [address] Cardiology 08/18/22 Rip Rivers DO [address] [place] [address] Hematology/Oncology 10/14/23 Farm Butcher Relationship Specialty Start Date End Date Williams Farrell DO [address] [facility] [place] [address] PCP - General Internal Medicine 04/26/23 Meenu Garay MD [address] [place] [place] [address] Physician Radiation Oncology 09/06/16 Carla Almonte, PRINCE Specialty Hot Kettle Tender Oncology 07/06/17 Meenu Garay MD [address] [place] [address] Physician Radiation Oncology 04/12/19 Mayco Galeano MD [address] [place] [address] Cardiology 08/18/22 Rip Rivers DO [address] [place] [address] Hematology/Oncology 10/14/23 Farm Butcher Relationship Specialty Start Date End Date Williams Farrell DO [address] [facility] [place] [address] PCP - General Internal Medicine 04/26/23 Meneu Garay MD [address] [place] [address] Physician Radiation Oncology 09/06/16 Carla Almonte RN Specialty Hot Kettle Tender Oncology 07/06/17 Meenu Garay MD [address] [place] [address] Physician Radiation Oncology 04/12/19 Mayco Galeano MD [address] [address] Cardiology 08/18/22 Rip Rivers DO [address] [place] [address] Hematology/Oncology 10/14/23 Farm Butcher Relationship Specialty Start Date End Date Williams Farrell DO [address] [facility] [place] [address] PCP - General Internal Medicine 04/26/23 Meenu Garay MD [address] [place] [address] Physician Radiation Oncology 09/06/16 Carla Almonte RN Specialty Hot Kettle Tender Oncology 07/06/17 Meenu Garay MD [address] [place] [address] Physician Radiation Oncology 04/12/19 Mayco Galeano MD [address] [place] [address] Cardiology 08/18/22 Rip Rivers DO [address] [place] [address] Hematology/Oncology 10/14/23 Farm Butcher Relationship Specialty Start Date End Date Williams Farrell DO [address] [facility] [place] [address] PCP - General Internal Medicine 04/26/23 Meenu Garay MD [address] [place] [address] Physician Radiation Oncology 09/06/16 Carla Almonte RN Specialty Hot Kettle Tender Oncology 07/06/17 Meenu Garay MD [address] [place] [address] Physician Radiation Oncology 04/12/19 Mayco Galeano MD [address] [facility] [address] [place] [address] Cardiology 08/18/22 Rip Rivers DO [address] [place] [address] Hematology/Oncology 10/14/23 Farm Butcher Relationship Specialty Start Date End Date Williams Farrell DO [address] [facility] [place] [address] PCP - General Internal Medicine 04/26/23 Meenu Garay MD [address] [place] [address] Physician Radiation Oncology 09/06/16 Carla Almonte RN Specialty Hot Kettle Tender Oncology 07/06/17 Meenu Garay MD [address] [place] [address] Physician Radiation Oncology 04/12/19 Mayco Galeano MD [address] [place] [address] Cardiology 08/18/22 Rip Rivers DO [address] [place] [address] Hematology/Oncology 10/14/23 Farm Butcher Relationship Specialty Start Date End Date Williams Farrell DO [address] [facility] [place] [address] PCP - General Internal Medicine 04/26/23 Meenu Garay MD [address] [place] [address] Physician Radiation Oncology 09/06/16 Carla Almonte RN Specialty Hot Kettle Tender Oncology 07/06/17 Meenu Garay MD [address] [place] [address] Physician Radiation Oncology 04/12/19 Mayco Galeano MD [address] [place] [address] Cardiology 08/18/22 Rip Rivers DO [address] [place] [address] Hematology/Oncology 10/14/23 Farm Butcher Relationship Specialty Start Date End Date Williams Farrell DO [address] [facility] Physician [facility] [place] [address] PCP - General Internal Medicine 04/26/23 Meenu Garay MD [address] [place] [address] Physician Radiation Oncology 09/06/16 Carla Almonte RN Specialty Hot Kettle Tender Oncology 07/06/17 Meenu Garay MD [address] [place] [address] Physician Radiation Oncology 04/12/19 Mayco Galeano MD [address] [facility] [place] [address] Cardiology 08/18/22 Rip Rivers DO [address] [place] [address] Hematology/Oncology 10/14/23 Farm Butcher Relationship Specialty Start Date End Date Williams Farrell DO [address] [facility] Physician [place] [address] PCP - General Internal Medicine 04/26/23 Meenu Garay MD [address] [place] [address] Physician Radiation Oncology 09/06/16 Carla Almonte RN Specialty Hot Kettle Tender Oncology 07/06/17 Meenu Garay MD [address] [place] [address] Physician Radiation Oncology 04/12/19 Mayco Galeano MD [address] [place] [address] Cardiology 08/18/22 Rip Rivers DO [address] [place] [address] Hematology/Oncology 10/14/23 Farm Butcher Relationship Specialty Start Date End Date Williams Farrell DO [address] [facility] [place] [address] PCP - General Internal Medicine 04/26/23 Meenu Garay MD [address] [place] [address] Physician Radiation Oncology 09/06/16 Carla Almonte, RN Specialty Hot Kettle Tender Oncology 07/06/17 Meenu Garay MD [address] [place] [address] Physician Radiation Oncology 04/12/19 Mayco Galeano MD [address] [place] [address] Cardiology 08/18/22 Rip Rivers DO [address] [place] [address] Hematology/Oncology 10/14/23 Farm Butcher Relationship Specialty Start Date End Date Williams Farrell DO [address] [facility] [place] [address] PCP - General Internal Medicine 04/26/23 Meenu Garay MD [address] [place] [place] [address] Physician Radiation Oncology 09/06/16 Carla Almonte RN Specialty Hot Kettle Tender Oncology 07/06/17 Meenu Garay MD [address] [place] [address] Physician Radiation Oncology 04/12/19 Mayco Galeano MD [address] [facility] [place] [address] Cardiology 08/18/22 Rip Rivers DO [address] [place] [address] Hematology/Oncology 10/14/23 Farm Butcher Relationship Specialty Start Date End Date Williams Farrell DO [address] [facility] [place] [address] PCP - General Internal Medicine 04/26/23 Meenu Garay MD [address] [place] [address] Physician Radiation Oncology 09/06/16 Carla Almonte RN Specialty Hot Kettle Tender Oncology 07/06/17 Meenu Garay MD [address] [place] [address] Physician Radiation Oncology 04/12/19 Mayco Galeano MD [address] [place] [address] Cardiology 08/18/22 Rip Rivers DO [address] [place] [address] Hematology/Oncology 10/14/23 Farm Butcher Relationship Specialty Start Date End Date Williams Farrell DO [address] [facility] [place] [address] PCP - General Internal Medicine 04/26/23 Meenu Garay MD [address] [place] [address] Physician Radiation Oncology 09/06/16 Carla Almonte, PRINCE Specialty Hot Kettle Tender Oncology 07/06/17 Meenu Garay MD [address] [place] [address] Physician Radiation Oncology 04/12/19 Mayco Galeano MD [address] [place] [address] Cardiology 08/18/22 Rip Rivers DO [address] [place] [address] Hematology/Oncology 10/14/23 Farm Butcher Relationship Specialty Start Date End Date Williams Farrell DO [address] [facility] Physician [place], [place] [address] PCP - General Internal Medicine 04/26/23 Meenu Garay MD [address] [place] [address] Physician Radiation Oncology 09/06/16 Carla Almonte, RN Specialty Hot Kettle Tender Oncology 07/06/17 Meenu Garay MD [address] [place] [address] Physician Radiation Oncology 04/12/19 Mayco Galeano MD [address] [place] [address] Cardiology 08/18/22 Rip Rivers DO [address] [place] [address] Hematology/Oncology 10/14/23 Farm Butcher Relationship Specialty Start Date End Date Williams Farrell DO [address] [facility] Physician [place], [place] [address] PCP - General Internal Medicine 04/26/23 Meenu Garay MD [address] [place] [place] [address] Physician Radiation Oncology 09/06/16 Carla Almonte, RN Specialty Hot Kettle Tender Oncology 07/06/17 Meenu Garay MD [address] [place] [address] Physician Radiation Oncology 04/12/19 Mayco Galeano MD [address] [place] [address] Cardiology 08/18/22 Rip Rivers DO [address] [place] [address] Hematology/Oncology 10/14/23 Farm Butcher Relationship Specialty Start Date End Date Williams Farrell DO [address] [facility] [place] [address] PCP - General Internal Medicine 04/26/23 Meenu Garay MD [address] [place] [address] Physician Radiation Oncology 09/06/16 Carla Almonte, PRINCE Specialty Hot Kettle Tender Oncology 07/06/17 Meenu Garay MD [address] [place] [place] [address] Physician Radiation Oncology 04/12/19 Mayco Galeano MD [address] [facility] [place] [address] Cardiology 08/18/22 Rip Rivers DO [address] [place] [address] Hematology/Oncology 10/14/23 Farm Butcher Relationship Specialty Start Date End Date Williams Farrell DO [address] [facility] [place] [address] PCP - General Internal Medicine 04/26/23 Meenu Garay MD [address] [place] [address] Physician Radiation Oncology 09/06/16 Carla Almonte RN Specialty Hot Kettle Tender Oncology 07/06/17 Meenu Garay MD [address] [place] [address] Physician Radiation Oncology 04/12/19 Mayco Galeano MD [address] [place] [address] Cardiology 08/18/22 Rip Rivers DO [address] [place] [address] Hematology/Oncology 10/14/23 Farm Butcher Relationship Specialty Start Date End Date Williams Farrell DO [address] [facility] Physician [place], [place] [address] PCP - General Internal Medicine 04/26/23 Meenu Garay MD [address] [place] [address] Physician Radiation Oncology 09/06/16 Carla Almonte RN Specialty Hot Kettle Tender Oncology 07/06/17 Meenu Garay MD [address] [place] [place] [address] Physician Radiation Oncology 04/12/19 Mayco Galeano MD [address] [place] [address] Cardiology 08/18/22 Rip Rivers DO [address] [place] [address] Hematology/Oncology 10/14/23 Farm Butcher Relationship Specialty Start Date End Date Williams Farrell DO [address] [facility] [place] [address] PCP - General Internal Medicine 04/26/23 Meenu Garay MD [address] [place] [address] Physician Radiation Oncology 09/06/16 Carla Almonte RN Specialty Hot Kettle Tender Oncology 07/06/17 Meenu Garay MD [address] [place] [address] Physician Radiation Oncology 04/12/19 Mayco Galeano MD [address] [place] [address] Cardiology 08/18/22 Rip Rivers DO [address] [place] [address] Hematology/Oncology 10/14/23 Farm Butcher Relationship Specialty Start Date End Date Williams Farrell DO [address] [facility] [place] [address] PCP - General Internal Medicine 04/26/23 Meenu Garay MD [address] [place] [address] Physician Radiation Oncology 09/06/16 Carla Almonte RN Specialty Hot Kettle Tender Oncology 07/06/17 Meenu Garay MD [address] [place] [address] Physician Radiation Oncology 04/12/19 Mayco Galeano MD [address] [place] [address] Cardiology 08/18/22 Rip Rivers DO [address] [place] [address] Hematology/Oncology 10/14/23 Farm Butcher Relationship Specialty Start Date End Date Isac Billingsley MD [address] [place] [address] PCP - General Family Medicine 07/04/24 Meenu Garay MD [address] [place] [address] Physician Radiation Oncology 09/06/16 Carla Almonte RN Specialty Hot Kettle Tender Oncology 07/06/17 Meenu Garay MD [address] [place] [address] Physician Radiation Oncology 04/12/19 Mayco Galeano MD [address] [place] [address] Cardiology 08/18/22 Rip Rivers DO [address] [place] [place] [address] Hematology/Oncology 10/14/23 Farm Butcher Relationship Specialty Start Date End Date Isac Billingsley MD [address] [place] [address] PCP - General Family Medicine 07/04/24 Meenu Garay MD [address] [place] [address] Physician Radiation Oncology 09/06/16 Carla Almonte RN Specialty Hot Kettle Tender Oncology 07/06/17 Meenu Garay MD [address] [place] [address] Physician Radiation Oncology 04/12/19 Mayco Galeano MD [address] [place] [address] Cardiology 08/18/22 Rip Rivers DO [address] [place] [address] Hematology/Oncology 10/14/23 Farm Butcher Relationship Specialty Start Date End Date Isac Billingsley MD [address] [place] [address] PCP - General Family Medicine 07/04/24 Meenu Garay MD [address] [place] [address] Physician Radiation Oncology 09/06/16 Carla Almonte RN Specialty Hot Kettle Tender Oncology 07/06/17 Meenu Garay MD [address] [place] [address] Physician Radiation Oncology 04/12/19 Mayco Galeano MD [address] [place] [address] Cardiology 08/18/22 Rip Rivers DO [address] [place], [place] [id number] Hematology/Oncology 10/14/23 Farm Butcher Relationship Specialty Start Date End Date Isac Billingsley MD [address] [place] [address] PCP - General Family Medicine 07/04/24 Meenu Garay MD [address] [place], [place] [address] [phone] Physician Radiation Oncology 09/06/16 Carla Almonte RN Specialty Hot Kettle Tender Oncology 07/06/17 Meenu Garay MD [address] [place] [address] Physician Radiation Oncology 04/12/19 Mayco Galeano MD [address] [id number] Cardiology 08/18/22 Rip Rivers DO [address] [place], [place] [id number] Hematology/Oncology 10/14/23 Farm Butcher Relationship Specialty Start Date End Date Williams Farrell DO [address] [facility] [place] [address] PCP - General Internal Medicine 04/26/23 07/03/24 Isac Billingsley MD [address] [place] [phone] PCP - General Family Medicine 07/04/24 Meenu Garay MD [address] [place] [address] Physician Radiation Oncology 09/06/16 Carla Almonte RN Specialty Hot Kettle Tender Oncology 07/06/17 Meenu Garay MD [address] [place] [address] Physician Radiation Oncology 04/12/19 Mayco Galeano MD [address] [facility] [place] [address] Cardiology 08/18/22 Rip Rivers DO [address] [place] [address] Hematology/Oncology 10/14/23 Farm Butcher Relationship Specialty Start Date End Date Isac Billingsley MD [address] [place] [address] PCP - General Family Medicine 07/04/24 Meenu Garay MD [address] [place] [address] Physician Radiation Oncology 09/06/16 Carla Almonte RN Specialty Hot Kettle Tender Oncology 07/06/17 Meenu Garay MD [address] [place] [address] Physician Radiation Oncology 04/12/19 Mayco Galeano MD [address] [place] [address] Cardiology 08/18/22 Rip Rivers DO [address] [place] [address] [phone] Hematology/Oncology 10/14/23 Farm Butcher Relationship Specialty Start Date End Date Isac Billingsley MD [address] [place] [address] PCP - General Family Medicine 07/04/24 Meenu Garay MD [address] [place] [address] Physician Radiation Oncology 09/06/16 Carla Almonte RN Specialty Hot Kettle Tender Oncology 07/06/17 Meenu Garay MD [address] [place] [address] Physician Radiation Oncology 04/12/19 Mayco Galeano MD [address] [facility] [place], [place] [address] Cardiology 08/18/22 Rip Rivers DO [address] [place] [address] Hematology/Oncology 10/14/23 Farm Butcher Relationship Specialty Start Date End Date Isac Billingsley MD [address] [place] [phone] PCP - General Family Medicine 07/04/24 Meenu Garay MD [address] [place] [address] Physician Radiation Oncology 09/06/16 Carla Almonte RN Specialty Hot Kettle Tender Oncology 07/06/17 Meenu Garay MD [address] [place] [address] Physician Radiation Oncology 04/12/19 Mayco Galeano MD [address] [place] [address] Cardiology 08/18/22 Rip Rivers DO [address] [place] [address] Hematology/Oncology 10/14/23 Farm Butcher Relationship Specialty Start Date End Date Isac Billingsley MD [address] [place] [address] PCP - General Family Medicine 07/04/24 Meenu Garay MD [address] [place] [address] Physician Radiation Oncology 09/06/16 Carla Almonte RN Specialty Hot Kettle Tender Oncology 07/06/17 Meenu Garay MD [address] [place] [address] Physician Radiation Oncology 04/12/19 Mayco Galeano MD [address] [place] [address] Cardiology 08/18/22 Rip Rivers DO [address] [place] [address] Hematology/Oncology 10/14/23 Farm Butcher Relationship Specialty Start Date End Date Isac Billingsley MD [address] [place] [address] PCP - General Family Medicine 07/04/24 Meenu Garay MD [address] [place] [address] Physician Radiation Oncology 09/06/16 Carla Almonte RN Specialty Hot Kettle Tender Oncology 07/06/17 Meenu Garay MD [address] [place] [address] Physician Radiation Oncology 04/12/19 Mayco Galeano MD [address] [place] [address] Cardiology 08/18/22 Rip Rivers DO [address] [place] [address] Hematology/Oncology 10/14/23 Farm Butcher Relationship Specialty Start Date End Date Isac Billingsley MD [address] [place] [address] PCP - General Family Medicine 07/04/24 Meenu Garay MD [address] [place] [address] Physician Radiation Oncology 09/06/16 Carla Almonte RN Specialty Hot Kettle Tender Oncology 07/06/17 Meenu Garay MD [address] [place] [address] Physician Radiation Oncology 04/12/19 Mayco Galeano MD [address] [place] [address] Cardiology 08/18/22 Rip Rivers DO [address] [place] [address] Hematology/Oncology 10/14/23 Farm Butcher Relationship Specialty Start Date End Date Isac Billingsley MD [address] [place] [address] PCP - General Family Medicine 07/04/24 Meenu Garay MD [address] [place] [address] Physician Radiation Oncology 09/06/16 Carla Almonte RN Specialty Hot Kettle Tender Oncology 07/06/17 Meenu Garay MD [address] [place] [address] Physician Radiation Oncology 04/12/19 Mayco Galeano MD [address] [place] [address] Cardiology 08/18/22 Rip Rivers DO [address] [place] [address] Hematology/Oncology 10/14/23 Farm Butcher Relationship Specialty Start Date End Date Isac Billingsley MD [address] [place] [address] PCP - General Family Medicine 07/04/24 Meenu Garay MD [address] [place] [address] Physician Radiation Oncology 09/06/16 Carla Almonte RN Specialty Hot Kettle Tender Oncology 07/06/17 Meenu Garay MD [address] [place] [address] Physician Radiation Oncology 04/12/19 Mayco Galeano MD [address] [facility] [place] [address] Cardiology 08/18/22 Rip Rivers DO [address] [place] [address] Hematology/Oncology 10/14/23 Farm Butcher Relationship Specialty Start Date End Date Isac Billingsley MD [address] [place] [address] PCP - General Family Medicine 07/04/24 Meenu Garay MD [address] [place] [address] Physician Radiation Oncology 09/06/16 Carla Almonte RN Specialty Hot Kettle Tender Oncology 07/06/17 Meenu Garay MD [address] [place] [address] Physician Radiation Oncology 04/12/19 Mayco Galeano MD [address] [place] [address] Cardiology 08/18/22 Rip Rivers DO [address] [place] [address] Hematology/Oncology 10/14/23 Farm Butcher Relationship Specialty Start Date End Date Isac Billingsley MD [address] [facility] [place] [address] PCP - General Family Medicine 07/04/24 Meenu Garay MD [address] [place] [address] Physician Radiation Oncology 09/06/16 Carla Almonte RN Specialty Hot Kettle Tender Oncology 07/06/17 Meenu Garay MD [address] [place] [address] Physician Radiation Oncology 04/12/19 Mayco Galeano MD [address] [facility] [place] [address] Cardiology 08/18/22 Rip Rivers DO [address] [place] [address] Hematology/Oncology 10/14/23 Farm Butcher Relationship Specialty Start Date End Date Isac Billingsley MD [address] [facility] [place] [address] PCP - General Family Medicine 07/04/24 Meenu Garay MD [address] [place] [address] Physician Radiation Oncology 09/06/16 Carla Almonte RN Specialty Hot Kettle Tender Oncology 07/06/17 Meenu Garay MD [address] [place] [address] Physician Radiation Oncology 04/12/19 Mayco Galeano MD [address] [place] [address] Cardiology 08/18/22 Rip Rivers DO [address] [place] [address] Hematology/Oncology 10/14/23 Farm Butcher Relationship Specialty Start Date End Date Isac Billingsley MD [address] [place] [address] PCP - General Family Medicine 07/04/24 Meenu Garay MD [address] [place] [address] Physician Radiation Oncology 09/06/16 Carla Almonte RN Specialty Hot Kettle Tender Oncology 07/06/17 Meenu Garay MD [address] [place] [address] Physician Radiation Oncology 04/12/19 Mayco Galeano MD [address] [place] [address] Cardiology 08/18/22 Rip Rivers DO [address] [place] [address] Hematology/Oncology 10/14/23 Farm Butcher Relationship Specialty Start Date End Date Isac Billingsley MD [address] [place] [address] PCP - General Family Medicine 07/04/24 Meenu Garay MD [address] [place] [address] Physician Radiation Oncology 09/06/16 Carla Almonte RN Specialty Hot Kettle Tender Oncology 07/06/17 Meenu Garay MD [address] [place] [address] Physician Radiation Oncology 04/12/19 Mayco Galeano MD [address] [facility] [place] [address] Cardiology 08/18/22 Rip Rivers DO [address] [place] [address] Hematology/Oncology 10/14/23 Farm Butcher Relationship Specialty Start Date End Date Isac Billingsley MD [address] [place] [address] PCP - General Family Medicine 07/04/24 Meenu Garay MD [address] [place] [address] Physician Radiation Oncology 09/06/16 Carla Almonte RN Specialty Hot Kettle Tender Oncology 07/06/17 Meenu Garay MD [address] [place] [address] Physician Radiation Oncology 04/12/19 Mayco Galeano MD [address] [place] [address] Cardiology 08/18/22 Rip Rivers DO [address] [place] [address] Hematology/Oncology 10/14/23 Farm Butcher Relationship Specialty Start Date End Date Isac Billingsley MD [address] [place] [address] PCP - General Family Medicine 07/04/24 Meenu Garay MD [address] [place] [address] Physician Radiation Oncology 09/06/16 Carla Almonte RN Specialty Hot Kettle Tender Oncology 07/06/17 Meenu Garay MD [address] [place] [address] Physician Radiation Oncology 04/12/19 Mayco Galeano MD [address] [place] [address] Cardiology 08/18/22 Rip Rivers DO [address] [place] [address] Hematology/Oncology 10/14/23 Team Status: Active Member Role [...] Provider Active S tart: September 13, 2024 Farm Butcher Relationship Specialty Start Date End Date Isac Billingsley MD [address] [facility] [address] [place] [phone] PCP - General Family Medicine 09/28/24 Farm Butcher Relationship Specialty Start Date End Date Isac Billingsley MD [address] [place] [phone] PCP - General Family Medicine 07/04/24 Meenu Garay MD [address] [place] [address] Physician Radiation Oncology 09/06/16 Carla Almonte, PRINCE Specialty Hot Kettle Tender Oncology 07/06/17 Meenu Garay MD [address] [place] [address] Physician Radiation Oncology 04/12/19 Mayco Galeano MD [address] [place] [address] [address] [place] [address] Cardiology 08/18/22 Rip Rivers DO [address] [place] [address] Hematology/Oncology 10/14/23 Farm Butcher Relationship Specialty Start Date End Date Isac Billingsley MD [address] [place] [phone] PCP - General Family Medicine 07/04/24 Meenu Garay MD [address] [place] [address] Physician Radiation Oncology 09/06/16 Carla Almonte RN Specialty Hot Kettle Tender Oncology 07/06/17 Meenu Garay MD [address] [place] [address] Physician Radiation Oncology 04/12/19 Mayco Galeano MD [address] [place] [address] Cardiology 08/18/22 Rip Rivers DO [address] [place] [address] Hematology/Oncology 10/14/23 Farm Butcher Relationship Specialty Start Date End Date Isac Billingsley MD [address] [place] [address] PCP - General Family Medicine 07/04/24 Meenu Garay MD [address] [place] [address] Physician Radiation Oncology 09/06/16 Carla Almonte RN Specialty Hot Kettle Tender Oncology 07/06/17 Meenu Garay MD [address] [place] [address] Physician Radiation Oncology 04/12/19 Mayco Galeano MD [address] [place] [address] Cardiology 08/18/22 Rip Rivers DO [address] [place] [address] Hematology/Oncology 10/14/23 Farm Butcher Relationship Specialty Start Date End Date Isac Billingsley MD [address] [place] [address] PCP - General Family Medicine 07/04/24 Meenu Garay MD [address] [place] [address] Physician Radiation Oncology 09/06/16 Carla Almonte RN Specialty Hot Kettle Tender Oncology 07/06/17 eMenu Garay MD [address] [place] [address] Physician Radiation Oncology 04/12/19 Mayco Galeano MD [address] [place] [address] Cardiology 08/18/22 Rip Rivers DO [address] [place] [address] Hematology/Oncology 10/14/23 Farm Butcher Relationship Specialty Start Date End Date Isac Billingsley MD [address] [place] [address] PCP - General Family Medicine 07/04/24 Meenu Garay MD [address] [place] [address] Physician Radiation Oncology 09/06/16 Carla Almonte RN Specialty Hot Kettle Tender Oncology 07/06/17 Meenu Garay MD [address] [place] [address] Physician Radiation Oncology 04/12/19 Mayco Galeano MD [address] [place] [address] Cardiology 08/18/22 Rip Rivers DO [address] [place] [address] Hematology/Oncology 10/14/23 Farm Butcher Relationship Specialty Start Date End Date Isac Billingsley MD [address] [place] [address] PCP - General Family Medicine 07/04/24 Meenu Garay MD [address] [place] [address] Physician Radiation Oncology 09/06/16 Carla Almonte RN Specialty Hot Kettle Tender Oncology 07/06/17 Meenu Garay MD [address] [place] [address] Physician Radiation Oncology 04/12/19 Mayco Galeano MD [address] [place] [address] Cardiology 08/18/22 Rip Rivers DO [address] [place] [address] Hematology/Oncology 10/14/23 Farm Butcher Relationship Specialty Start Date End Date Isac Billingsley MD [address] [place] [address] PCP - General Family Medicine 07/04/24 Meenu Garay MD [address] [place] [address] Physician Radiation Oncology 09/06/16 Carla Almonte RN Specialty Hot Kettle Tender Oncology 07/06/17 Meenu Garay MD [address] [place] [address] Physician Radiation Oncology 04/12/19 Mayco Galeano MD [address] [place] [address] Cardiology 08/18/22 Rip Rivers DO [address] [place] [address] Hematology/Oncology 10/14/23 Farm Butcher Relationship Specialty Start Date End Date Isac Billingsley MD [address] [place] [address] PCP - General Family Medicine 07/04/24 Meenu Garay MD [address] [place] [address] Physician Radiation Oncology 09/06/16 Carla Almonte RN Specialty Hot Kettle Tender Oncology 07/06/17 Meenu Garay MD [address] [place] [address] Physician Radiation Oncology 04/12/19 Mayco Galeano MD [address] [place] [address] Cardiology 08/18/22 Rip Rivers DO [address] [place], [place] 12[address] [phone] Hematology/Oncology 10/14/23 Farm Butcher Relationship Specialty Start Date End Date Isac Billingsley MD [address] [place] [address] PCP - General Family Medicine 07/04/24 Meenu Garay MD [address] [place] [address] Physician Radiation Oncology 09/06/16 Carla Almonte RN Specialty Hot Kettle Tender Oncology 07/06/17 Meenu Garay MD [address] [place], [place] [address] [phone] Physician Radiation Oncology 04/12/19 Mayco Galeano MD [address] [place] [address] Cardiology 08/18/22 Rip Rivers DO [address] [place] [phone] Hematology/Oncology 10/14/23 Team Status: Active Member Role/Relationship Status Dates Dr. Isac Billingsley MD Primary [...] Status: Active Member Role/Relationship Status Dates Dr. Isac Billingsley MD Primary Care Provider Active Start: September 13, 2024 Dr. Mayco Galeano MD Attending Provider Active S tart: September 13, 2024 Team Status: Inactive Member Role/Relationship Status Dates Dr. Isac Billingsley MD Primary Care Provider Active Start: December 19, 2024 End: December 19, 2024 Caity Cote PRINCIPAL PLANNER, PRINCIPAL PLANNER-C Attending Provider Active Start: December 19, 2024 End: December 19, 2024 Caity Cote PRINCIPAL PLANNER, PRINCIPAL PLANNER-C Referring Provider Active Start: December 19, 2024 End: December 19, 2024 Team Status: Active Member Role/Relationship Status Dates Dr. Isac Billingsley MD Primary Care Provider Active Start: December 19, 2024 Dr. Mayco Galeano MD Attending Provider Active S tart: December 19, 2024 Farm Butcher Relationship Specialty Start Date End Date Isac Billingsley MD [address] [place] [address] PCP - General Family Medicine 07/04/24 Meenu Garay MD [address] [place], [place] [address] Physician Radiation Oncology 09/06/16 Carla Almonte RN Specialty Hot Kettle Tender Oncology 07/06/17 Meenu Garay MD [address] [place], [place] [address] Physician Radiation Oncology 04/12/19 Mayco Galeano MD [address] [facility] [place] [address] Cardiology 08/18/22 Rip Rivers DO [address] [place] [address] Hematology/Oncology 10/14/23 Farm Butcher Relationship Specialty Start Date End Date Isac Billingsley MD [address] [place] [phone] PCP - General Family Medicine 07/04/24 Meenu Garay MD [address] [place], [place] [address] [phone] Physician Radiation Oncology 09/06/16 Carla Almonte RN Specialty Hot Kettle Tender Oncology 07/06/17 Meenu Garay MD [address] [place] [address] Physician Radiation Oncology 04/12/19 Mayco Galeano MD [address] [address] Cardiology 08/18/22 Rip Rivers DO [address] [place] [address] Hematology/Oncology 10/14/23 Farm Butcher Relationship Specialty Start Date End Date Rupali Mirza NP [facility] [place], [place] [address] PCP - General Family Medicine 01/14/25 Meenu Garay MD [address] [place] [address] Physician Radiation Oncology 09/06/16 Carla Almonte RN Specialty Hot Kettle Tender Oncology 07/06/17 Meenu Garay MD [address] [place] [address] Physician Radiation Oncology 04/12/19 Mayco Galeano MD [address] [place] [address] Cardiology 08/18/22 Rip Rivers DO [address] [place] [place] [address] Hematology/Oncology 10/14/23 Farm Butcher Relationship Specialty Start Date End Date Rupali Mirza NP [facility] [place] [address] PCP - General Family Medicine 01/14/25 Meenu Garay MD [address] [place] [address] Physician Radiation Oncology 09/06/16 Carla Almonte RN Specialty Hot Kettle Tender Oncology 07/06/17 Meenu Garay MD [address] [place] [address] Physician Radiation Oncology 04/12/19 Mayco Galeano MD [address] [place] [address] Cardiology 08/18/22 Rip Rivers DO [address] [place] [address] Hematology/Oncology 10/14/23 Farm Butcher Relationship Specialty Start Date End Date Rupali Mirza NP [address] [facility] [place] [address] PCP - General Family Medicine 01/14/25 Meenu Garay MD [address] [place] [address] Physician Radiation Oncology 09/06/16 Carla Almonte RN Specialty Hot Kettle Tender Oncology 07/06/17 Meenu Garay MD [address] [place] [address] [phone] Physician Radiation Oncology 04/12/19 Mayco Galeano MD [address] [address] Cardiology 08/18/22 Rip Rivers DO [address] [place], [place] [address] Hematology/Oncology 10/14/23 Farm Butcher Relationship Specialty Start Date End Date Rupali Mirza NP [address] [facility] [place] [address] PCP - General Family Medicine 01/14/25 Meenu Garay MD [address] [place] [address] Physician Radiation Oncology 09/06/16 Carla Almonte RN Specialty Hot Kettle Tender Oncology 07/06/17 Meenu Garay MD [address] [place] [address] Physician Radiation Oncology 04/12/19 Mayco Galeano MD [address] [place] [address] Cardiology 08/18/22 Rip Rivers DO [address] [place] [address] Hematology/Oncology 10/14/23 Farm Butcher Relationship Specialty Start Date End Date Rupali Mirza NP [address] [employer] [address] [place], [place] [address] PCP - General Family Medicine 01/14/25 Meenu Garay MD [address] [place] [address] Physician Radiation Oncology 09/06/16 Carla Almonte RN Specialty Hot Kettle Tender Oncology 07/06/17 Meenu Garay MD [address] [place] [address] Physician Radiation Oncology 04/12/19 Mayco Galeano MD [address] [place] [address] Cardiology 08/18/22 Rip Rivers DO [address] [place] [address] Hematology/Oncology 10/14/23 Farm Butcher Relationship Specialty Start Date End Date Rupali Mirza NP [address] [employer] [address] [place], [place] [id number] PCP - General Family Medicine 01/14/25 Meenu Garay MD [address] [place] [address] Physician Radiation Oncology 09/06/16 Carla Almonte RN Specialty Hot Kettle Tender Oncology 07/06/17 Meenu Garay MD [address] [place] [place] [address] Physician Radiation Oncology 04/12/19 Mayco Galeano MD [address] [place] [address] Cardiology 08/18/22 Rip Rivers DO [address] [place] [address] Hematology/Oncology 10/14/23 Farm Butcher Relationship Specialty Start Date End Date Rupali Mirza NP [address] [facility] [address] [place] DC [id number] PCP - General Family Medicine 01/14/25 Meenu Garay MD [address] [place] [address] Physician Radiation Oncology 09/06/16 Carla Almonte RN Specialty Hot Kettle Tender Oncology 07/06/17 Meenu Garay MD [address] [place] [address] Physician Radiation Oncology 04/12/19 Mayco Galeano MD [address] [place] [address] Cardiology 08/18/22 Rip Rivers DO [address] [place] [address] Hematology/Oncology 10/14/23 Farm Butcher Relationship Specialty Start Date End Date Isac Billingsley MD [address] [place] [address] PCP - General Family Medicine 07/04/24 01/13/25 Rupali Mirza NP [address] [employer] [place], [place] [address] PCP - General Family Medicine 01/14/25 Meenu Garay MD [address] [place] [address] Physician Radiation Oncology 09/06/16 Carla Almonte RN Specialty Hot Kettle Tender Oncology 07/06/17 Meenu Garay MD [address] [place], [place] [address] [phone] Physician Radiation Oncology 04/12/19 Mayco Galeano MD [address] [address] Cardiology 08/18/22 Rip Rivers DO [address] [place] [address] Hematology/Oncology 10/14/23 Farm Butcher Relationship Specialty Start Date End Date Rupali Mirza NP [address] [employer] [place], [place] [id number] PCP - General Family Medicine 01/14/25 Meenu Garay MD [address] [place] [place] [address] Physician Radiation Oncology 09/06/16 Carla Almonte, RN Specialty Hot Kettle Tender Oncology 07/06/17 Meenu Garay MD [address] [place] [address] Physician Radiation Oncology 04/12/19 Mayco Galeano MD [address] [place] [address] Cardiology 08/18/22 Rip Rivers DO [address] [place] [address] Hematology/Oncology 10/14/23 Farm [employer]cher Relationship Specialty Start Date End Date Rupali Mirza NP [facility] [facility] [address] [place], [place] [id number] PCP - General Family Medicine 01/14/25 Meenu Garay MD [address] [place] [address] Physician Radiation Oncology 09/06/16 Carla Almonte RN Specialty Hot Kettle Tender Oncology 07/06/17 Meenu Garay MD [address] [place] [address] Physician Radiation Oncology 04/12/19 Mayco Galeano MD [address] [address] [place] [address] Cardiology 08/18/22 Rip Rivers DO [address] [place] [address] Hematology/Oncology 10/14/23 Farm Butcher Relationship Specialty Start Date End Date Rupali Mirza NP [address] [facility] [place] [address] PCP - General Family Medicine 01/14/25 Meenu Garay MD [address] [place], [place] [id number] [phone] Physician Radiation Oncology 09/06/16 Carla Almonte RN Specialty Hot Kettle Tender Oncology 07/06/17 Meenu Garay MD [address] [place] [address] Physician Radiation Oncology 04/12/19 Mayco Galeano MD [address] [place], [place] [address] Cardiology 08/18/22 Rip Rivers DO [address] [place] [address] Hematology/Oncology 10/14/23 Farm Butcher Relationship Specialty Start Date End Date Rupali Mirza NP [address] [facility] [place] [address] PCP - General Family Medicine 01/14/25 Meenu Garay MD [address] [place], [place] [address] [phone] Physician Radiation Oncology 09/06/16 Carla Almonte RN Specialty Hot Kettle Tender Oncology 07/06/17 Meenu Garay MD [address] [place] [address] Physician Radiation Oncology 04/12/19 Mayco Galeano MD [address] [place] [address] Cardiology 08/18/22 Rip Rivers DO [address] [place] [address] Hematology/Oncology 10/14/23 Farm Butcher Relationship Specialty Start Date End Date Rupali Mirza NP [address] [facility] [place] [address] PCP - General Family Medicine 01/14/25 Meenu Garay MD [address] [place] [address] Physician Radiation Oncology 09/06/16 Carla Almonte RN Specialty Hot Kettle Tender Oncology 07/06/17 Meenu Garay MD [address] [place] [address] Physician Radiation Oncology 04/12/19 Mayco Galeano MD [address] [place] [address] Cardiology 08/18/22 Rip Rivers DO [address] [place] [address] Hematology/Oncology 10/14/23 Reason for Visit (unrecogniz ed section and content) Reason Comments Radiology NM Specialty Diagnoses / Procedures Referred By Contac t Referred To Contact MOLECULAR & FUNCTIONAL IMAGING Diagnoses Malignant neoplasm of lower-inner quadrant of right breast of female, estrogen receptor positive (HCC) Bone metastases (HCC) Procedures NM PET/CT SKULL-THIGH INITIAL PET IMAGING CT ATTENUATION SKULL BASE MID-THIGH Rip Rivers, DO [address] [place] [address] Molecular & Functional Imaging [address] [place] [address] Referral ID Status Reason Start Date Expiration Date V isits Requested Visits Authorized [id number] Closed Auto-Generate d Referral 08/12/2021 09/11/2022 1 1 Reason Comments Established Patient Reason Comments Port Flush Reason Comments Hot Kettle Tender - Other Follow-up/US Reason Comments Reason Comments Hot Kettle Tender - Other Nutrition Consu lt/Treatment Question Reason Comments First Time Treatment Education Enhertu Reason Comments Benefits Investigation Reason Comments Radiology US Specialty Diagnoses / Procedures Referred By Contac t Referred To Contact US IMAGING Diagnoses Thyroid nodule Procedures US THYROID/PARATHYROID US SOFT TISSUE HEAD & NECK REAL TIME IMGE DOCM Rip Rivers, DO [address] [place] [address] Us Imaging Referral ID Status Reason Start Date Expiration Date V isits Requested Visits Authorized [id number] Closed Auto-Generate d Referral 09/02/2021 10/02/2022 1 1 Reason Comments Social Work Services Reason Comments Nutrition Assessment Reason Comments Chemotherapy Treatment Specialty Diagnoses / Procedures Referred By Contac t Referred To Contact Diagnoses Malignant neoplasm of lower-inner quadrant of right breast of female, estrogen receptor positive (HCC) Malignant neoplasm metastatic to lung, unspecified laterality (HCC) Bone metastases (HCC) Rip Rivers, DO [address] [place] [address] [facility] [address] [place] [address] Referral ID Status Reason Start Date Expiration Date V isits Requested Visits Authorized [id number] Authorized 09/02/2021 12/01/2021 99 99 Reason Comments Hot Kettle Tender - Other C1D1 Post Treat ment Call Reason Comments Blood Draw (CVAD) Reason Comments Established Patient Reason Comments Orders Reason Comments Established Patient Reason Comments Radiology CT Specialty Diagnoses / Procedures Referred By [facility] Referred To Contact CT IMAGING Diagnoses Malignant neoplasm of lower-inner quadrant of right breast of female, estrogen receptor positive (HCC) Bone metastases (HCC) Skin, 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) Malignant neoplasm of right breast in female, estrogen receptor positive, unspecified site of breast (HCC) Procedures CT CHEST W IVCON DIAGNOSTIC COMPUTED TOMOGRAPHY THORAX W/CONTRAST Caity Cote APRN.CLIENT REPORTING ASSOCIATE [address] [place] [address] Ct Imaging Referral ID Status Reason Start Date Expiration Date V isits Requested Visits Authorized [id number] Closed Auto-Generate d Referral 10/21/2021 11/20/2022 1 1 Reason Comments Non-Chemotherapy Treatment Specialty Diagnoses / Procedures Referred By [facility] Referred To Contact Diagnoses Chemotherapy induced diarrhea Bone metastases (HCC) Rip Rivers, DO [address] [place] [address] [facility] [address] [place] [address] Referral ID Status Reason Start Date Expiration Date V isits Requested Visits Authorized [id number] Authorized 04/09/2021 07/08/2021 99 99 Reason Comments Follow Up Specialty Diagnoses / Procedures Referred By [facility] Referred To Contact Diagnoses Malignant neoplasm of lower-inner quadrant of right breast of female, estrogen receptor positive (HCC) Malignant neoplasm metastatic to lung, unspecified laterality (HCC) Bone metastases (HCC) Rip Rivers, DO [address] [place] [address] [facility] [address] [place] [address] Reason Comments Follow Up review labs for chem o tomorrow Reason Comments Established Patient Reason Comments Orders Specialty Diagnoses / Procedures [facility] Ref[facility] To Contact CT IMAGING Diagnoses Malignant neoplasm of lower-inner quadrant of right breast of female, estrogen receptor positive (HCC) Bone metastases (HCC) Malignant neoplasm metastatic to both lungs (HCC) Skin, 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) Procedures CT CHEST W IVCON DIAGNOSTIC COMPUTED TOMOGRAPHY THORAX W/CONTRAST Caity Cote, EREN.CLIENT REPORTING ASSOCIATE [address] [place] [address] Ct Imaging Referral ID Status Reason Start Date Expiration Date V isits Requested Visits Authorized [id number] Closed Auto-Generate d Referral 12/23/2021 01/22/2023 1 1 Specialty Diagnoses / Procedures [facility] Referred To Contact Diagnoses Malignant neoplasm of lower-inner quadrant of right breast of female, estrogen receptor positive (HCC) Malignant neoplasm metastatic to lung, unspecified laterality (HCC) Bone metastases (HCC) Rip Rivers, DO [address] [place] [address] [facility] [address] [place] [address] Reason Comments Refill Request Reason Comments Patient Update Reason Comments AVS Reason Comments Electronic Communication Reason Comments CVAD Access Reason Comments Results Low potassium Reason Comments handicapp placard request Reason Comments Patient Question Reason Comments Results CTs Specialty Diagnoses / Procedures Referred By [facility] Referred To Contact Diagnoses Malignant neoplasm of lower-inner quadrant of right breast of female, estrogen receptor positive (HCC) Malignant neoplasm metastatic to lung, unspecified laterality (HCC) Bone metastases Rip Rivers, DO [address] [place] [address] Sant[facility] [address] [place] [address] Reason Onset Date Comments Refill Request 09/29/2022 [...] Bone metastases Rip Rivers, DO [address] [place] [address] [facility] [address] [place] [address] Reason Comments Results Reason Comments Future Appointment Reason Comments Recheck Specialty Diagnoses / Procedures Referred By Contac t Referred To Contact CT IMAGING Diagnoses Malignant neoplasm metastatic to bone (HCC) Procedures CT CHEST WO IVCON DIAGNOSTIC COMPUTED TOMOGRAPHY THORAX W/O CNTRST Rip Rivers, DO [address] [place] [address] Ct Imaging [facility] Referral ID Status Reason Start Date Expiration Date V isits Requested Visits Authorized [id number] Closed Auto-Generate d Referral 02/23/2023 03/24/2024 1 1 Specialty Diagnoses / Procedures Referred By Contac t Referred To Contact CT IMAGING Diagnoses Malignant neoplasm of lower-inner quadrant of right breast of female, estrogen receptor positive (HCC) Bone metastases Malignant neoplasm metastatic to both lungs (HCC) Procedures CT CHEST W IVCON DIAGNOSTIC COMPUTED TOMOGRAPHY THORAX W/CONTRAST Rip Rivers, DO [address] [place] [address] Ct Imaging [place] [facility] Referral ID Status Reason Start Date Expiration Date V isits Requested Visits Authorized [id number] Closed Auto-Generate d Referral 07/30/2022 08/29/2023 1 1 Referral ID Status Reason Start Date Expiration Date V isits Requested Visits Authorized [id number] Closed Auto-Generate d Referral 07/06/2022 08/05/2023 1 [...] THORAX W/CONTRAST Rip Rivers, DO [address] [facility] [address] [place] [address] Referral ID Status Reason Start Date Expiration Date V isits Requested Visits Authorized [id number] Closed Auto-Generate d Referral 12/22/2022 01/21/2024 1 1 Specialty Diagnoses / Procedures Referred By Contac t Referred To Contact CT IMAGING Diagnoses Malignant neoplasm of lower-inner quadrant of right breast of female, estrogen receptor positive (HCC) Bone metastases Procedures CT CHEST W IVCON DIAGNOSTIC COMPUTED TOMOGRAPHY THORAX W/CONTRAST Caity Cote APRN.CLIENT REPORTING ASSOCIATE [address] [place] [address] [place] [address] Referral ID Status Reason Start Date Expiration Date V isits Requested Visits Authorized [id number] Closed Auto-Generate d Referral 04/14/2022 05/14/2023 1 1 Reason Onset Date Comments Refill Request 04/25/2023 Specialty Diagnoses / Procedures Referred By Contac t Referred To Contact Diagnoses Malignant neoplasm of lower-inner quadrant of right breast of female, estrogen receptor positive (HCC) (HCC) Malignant neoplasm metastatic to lung, unspecified laterality (HCC) Bone metastases Rip Rivers, DO [address] [place] [address] [facility] [address] [place] [address] Specialty Diagnoses / Procedures Referred By Contac t Referred To Contact CT IMAGING Diagnoses Malignant neoplasm metastatic to left lung (HCC) Procedures CT CHEST WO IVCON DIAGNOSTIC COMPUTED TOMOGRAPHY THORAX W/O Meenu Kang MD [address] [facility] [facility] [place] [place] [place] [address] [place] [address] Referral ID Status Reason Start Date Expiration Date V isits Requested Visits Authorized [id number] Closed Auto-Generate d Referral 08/03/2023 07/07/2024 1 1 Reason Comments Recheck Specialty Diagnoses / Procedures Referred By Contac t Referred To Contact Diagnoses Malignant neoplasm of lower-inner quadrant of right breast of female, estrogen receptor positive (HCC) Malignant neoplasm metastatic to lung, unspecified laterality (HCC) Bone metastases Rip Rivers DO [address] [place] [address] [facility] [address] [place] [address] Reason Comments Radiology NM Reason Comments Appointment Reason Onset Date Comments SPP Oral Oncology/hematology - Treatment Referral 08/30/2023 Capecitabine 500mg / Tukysa 50mg / Tukysa 150mg Insurance Authorization 08/30/2023 No PA Re quired Reason Comments Care Coordination CYCLE 1/DAY 1 POST T REATMENT CALL Reason Comments AVS 08/29/23 Reason Comments Radiology US Specialty Diagnoses / Procedures [facility] Referred To Contact US IMAGING Diagnoses RUQ pain Procedures US ABD RIGHT UPPER QUADRANT US ABDOMINAL REAL TIME W/IMAGE LIMITED Rpi Rivers DO [address] [facility] [place] [address] [place] [address] Referral ID Status Reason Start Date Expiration Date V isits Requested Visits Authorized [id number] Closed Auto-Generate d Referral 08/30/2023 2024 1 1 Specialty Diagnoses / Procedures [facility] Referred To Contact Diagnoses Malignant neoplasm of lower-inner quadrant of right breast of female, estrogen receptor positive (HCC) Malignant neoplasm metastatic to lung, unspecified laterality (HCC) Malignant neoplasm metastatic to bone (HCC) HER2-positive carcinoma of breast (HCC) Rip Rivers DO [address] [place] [address] [facility] [address] [place] [address] Referral ID Status Reason Start Date Expiration Date V isits Requested Visits Authorized [id number] Authorized 08/30/2023 11/28/2023 99 99 Reason Onset Date Comments Simulation Request Form 09/12/2023 Reason Comments Patient Education Discharge instructio ns-completed radiation Reason Comments Question Reason Comments Hot Kettle Tender - Other Oral Follow-up Reason Onset Date Comments SPP Oral Oncology/hematology - Medication Refill 11/01/2023 Capecitabine 500mg Reason Comments Hot Kettle Tender - Other Oral Anti-Cance r Agents Follow-up Reason Comments Medication Question Reason Comments Establish Care PRINCIPAL PLANNER/EST CARE Reason Onset Date Comments SPP Oral Oncology/hematology - Medication Refill 12/07/2023 Capecitabine 500mg Specialty Diagnoses / Procedures Referred By [facility] Referred To Contact CT IMAGING Diagnoses Malignant neoplasm of lower-inner quadrant of right breast of female, estrogen receptor positive (HCC) Malignant neoplasm metastatic to lung, unspecified laterality (HCC) Malignant neoplasm metastatic to bone (HCC) 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) Procedures CT CHEST W IVCON DIAGNOSTIC COMPUTED TOMOGRAPHY THORAX W/CONTRAST Caity Cote APRN.CLIENT REPORTING ASSOCIATE [address] [place] [address] Ct Imaging [place] [address] Referral ID Status Reason Start Date Expiration Date V isits Requested Visits Authorized [id number] Closed Auto-Generate d Referral 12/14/2023 01/12/2025 1 1 Reason Onset Date Comments SPP Oral Oncology/hematology - Medication Refill 12/30/2023 Capecitabine 500mg Specialty Diagnoses / Procedures Referred By [facility] Referred To Contact CT IMAGING Diagnoses Malignant neoplasm of lower-inner quadrant of right breast of female, estrogen receptor positive (HCC) Orthopnea Interstitial pulmonary disease (HCC) Procedures CT CHEST WO IVCON DIAGNOSTIC COMPUTED TOMOGRAPHY THORAX W/O CNTRST Rip Rivers, DO [address] [facility] [facility] [address] [facility] [place] [place] [address] Ct Imaging [place] [address] Referral ID Status Reason Start Date Expiration Date V isits Requested Visits Authorized [id number] Closed Auto-Generate d Referral 01/04/2024 02/02/2025 1 1 Reason Comments Results Reason Comments Hot Kettle Tender - Other Follow-up Reason Comments Question [...] Capecitabine Specialty Diagnoses / Procedures [facility] Referred To Contact CT IMAGING Diagnoses Malignant neoplasm of lower-inner quadrant of right breast of female, estrogen receptor positive (HCC) Malignant neoplasm metastatic to bone (HCC) Malignant neoplasm metastatic to both lungs (HCC) Procedures CT ABD/PEL W IVCON CT ABD & PELVIS W/CONTRAST Rip Rivers, DO [address] [place] [address] [place] [address] Referral ID Status Reason Start Date Expiration Date V isits Requested Visits Authorized [id number] Closed Auto-Generate d Referral 03/21/2024 04/20/2025 1 1 Specialty Diagnoses / Procedures [facility] Referred To Contact CT IMAGING Diagnoses Malignant neoplasm of lower-inner quadrant of right breast of female, estrogen receptor positive (HCC) Malignant neoplasm metastatic to bone (HCC) Malignant neoplasm metastatic to both lungs (HCC) Procedures CT ABD/PEL W IVCON CT ABD & PELVIS W/CONTRAST Rip Rivers, DO [address] [place] [address] [place] [address] Reason Onset Date Comments SPP Oral Oncology/hematology [...] 500mg Specialty Diagnoses / Procedures Referred By [facility] Referred To Contact Diagnoses Malignant neoplasm of lower-inner quadrant of right breast of female, estrogen receptor positive (HCC) Malignant neoplasm metastatic to lung, unspecified laterality (HCC) Malignant neoplasm metastatic to bone (HCC) HER2-positive carcinoma of breast (HCC) Rip Rivers, [address] [place] [address] Phone: tel: fax: Hematology/Oncology [address] [place] [address] Phone: tel: fax: Reason Comments Tukysa Assistance Reason Comments Established Patient Reason Onset Date Comments SPP Oral Oncology/hematology - Medication Refill 08/27/2024 Capecitabine 500mg Specialty Diagnoses / Procedures Referred By Contac t Referred To Contact US IMAGING Diagnoses History of thyroid nodule Procedures US THYROID/PARATHYROID US SOFT TISSUE HEAD & NECK REAL TIME IMGE DOCM Rip Rivers, DO [address] [place] [address] Phone: tel: fax: [place] [address] Referral ID Status Reason Start Date Expiration Date V isits Requested Visits Authorized [id number] Closed Auto-Generate d Referral 08/15/2024 09/14/2025 1 1 Specialty Diagnoses / Procedures Referred By Conttio t Referred To Contact CT IMAGING Diagnoses Malignant neoplasm of lower-inner quadrant of right breast of female, estrogen receptor positive (HCC) Malignant neoplasm metastatic to bone (HCC) Malignant neoplasm metastatic to both lungs (HCC) Procedures CT ABD/PEL W IVCON CT ABD & PELVIS W/CONTRAST Rip Rivers, [address] [place] [address] Phone: tel: fax: [place] [address] Referral ID Status Reason Start Date Expiration Date V isits Requested Visits Authorized [id number] Closed Auto-Generate d Referral 08/15/2024 09/14/2025 1 [...] mg Specialty Diagnoses / Procedures Referred By Contac t Referred To Contact CT IMAGING Diagnoses Malignant neoplasm of lower-inner quadrant of right breast of female, estrogen receptor positive (HCC) HER2-positive carcinoma of breast (HCC) Malignant neoplasm metastatic to bone (HCC) Malignant neoplasm metastatic to both lungs (HCC) Chemotherapy-induced cardiomyopathy (HCC) Procedures CT CHEST W IVCON DIAGNOSTIC COMPUTED TOMOGRAPHY THORAX W/CONTRAST Caity Cote APRN.CLIENT REPORTING ASSOCIATE [address] [place] [address] Phone: tel: fax: [place] [address] Referral ID Status Reason Start Date Expiration Date V isits Requested Visits Authorized [id number] Closed Auto-Generate d Referral 12/26/2024 01/11/2026 1 [...] ATTENUATION SKULL BASE MID-THIGH Rip Rivers, [address] [place] [address] Phone: tel: fax: Molecular Imaging [address] [place] [address] Phone: tel: Referral ID Status Reason Start Date Expiration Date V isits Requested Visits Authorized [id number] Closed Auto-Generate d Referral 01/11/2025 02/10/2026 1 1 Reason Comments AVS 12/12 Reason Onset Date Comments Refill Request 02/05/2025 Specialty Diagnoses / Procedures Referred By Contac t Referred To Contact US IMAGING Diagnoses Nontoxic single thyroid nodule Procedures US THYROID/PARATHYROID US SOFT TISSUE HEAD & NECK REAL TIME IMGE DOCM Rip Rivers, DO [address] [place] [address] Phone: tel: fax: [facility] [place] [address] Referral ID Status Reason Start Date Expiration Date V isits Requested Visits Authorized [id number] Closed Auto-Generate d Referral 02/13/2025 03/15/2026 1 [...] 09/22/2023 1:22 PM EDT 506.4 mg zoledronic jn-[id number]-5.9NaCl 4 mg iv piggyback 100 mL (ZOMETA) 4 mg, INTRAVENOUS, Administer over 15 Minutes, ONCE, 1 dose, On Amarilys 09/22/23 at 1300, Hazardous Potential Reproductive Risk Drug: Use appropriate PPE. New Bag/Syringe/Bottle 09/22/2023 1:00 PM EDT 4 mg INFORMATION SOURCE (unrecogn ized section and content) DATE CREATED AUTHOR 09/29/2024 [facility] DATE CREATED AUTHOR AUTHOR'S ORGANIZ ATION 12/26/2024 [facility] DATE CREATED AUTHOR AUTHOR'S ORGANIZ ATION 01/31/2025 [facility] DATE CREATED AUTHOR AUTHOR'S ORGANIZ ATION 03/08/2025 [facility] FOR RECORDS PERTAINING TO PATIENTS WHO [...] BE BASED ON THE PRIMARY CLINICAL RECORDS. [facility] [employer] provides no warranty or guarantee of the accuracy or completeness of information in this document.
[2025-03-08] MEDS: MELATONIN 3 MG TABLET PO (22:24)
[2025-03-08 22:26] LABS: Procalcitonin 0.16 ng/mL (<=0.10)
[2025-03-09] VITALS (12 sets, daily range): BP systolic 112–134; BP diastolic 56–65; PULSE 50–80; RESP 15–18; TEMP 36.5–36.7; O2SAT 92–99; BMI 33.0
[2025-03-09 07:11] LABS: Hematocrit 35.1 % (37-47); Hemoglobin 11.7 g/dL (12.0-15.0); Immature Granulocytes Count 0.010 X10^3/uL (0.0-0.0); Mean Corp Hgb Conc 33.3 g/dL (32-36); Mean Corpuscular Volume 108.3 fL (81-99); Mean Platelet Vol. 10.1 fl (6.2-12.0); NRBC Flagged by Analyzer 0 % (0-5); POSITIVE DIFFERENTIAL YES; Platelet Count 116 K/mm3 (150-450); RBC Distribution Width CV 13.7 % (11.6-14.6); RBC Distribution Width SD 55.0 fl (35.1-43.9); Red Blood Count 3.24 M/mm3 (4.2-5.4); White Blood Count 2.8 K/mm3 (4.4-11.0)
[2025-03-09 07:26] LABS: Differential Indicated SCAN CRITERIA MET
[2025-03-09 07:46] LABS: Cholesterol 182 mg/dL (<=200); Low Density Lipoprotein Calc. 92 mg/dL; Triglycerides 93 mg/dL; Very Low Density Lipoprotein 19 mg/dL (5-40); cholesterol:hdl ratio screen 2.54
[2025-03-09 07:48] LABS: AST(SGOT) 29 U/L (<=31); Alanine Aminotransfer ALT/SGPT 13 U/L (<=34); Albumin, Serum 3.4 g/dL (3.4-4.8); Alkaline Phosphatase 93 U/L (35-104); Anion Gap 11 (5-15); BUN 8 mg/dL (4-19); BUN/Creat Ratio 10.5 RATIO (10-20); Calcium,Total 9.2 mg/dL (7.6-11.0); Carbon Dioxide 25.1 mmol/L (21.0-32.0); Chloride 105 mmol/L (98-108); Estimated Creatinine Clearance 61.50 ml/min (50-250); Globulin 2.0 g/dL (2.2-4.2); Glucose 90 mg/dL (70-99); Potassium 3.9 mmol/L (3.3-5.1)
--- NOTE | 2025-03-09 13:36 | CASEMGMT ---
PRINCE JETER in to discuss DAVID form with patient. RN CORONA explained DAVID form, patient voiced understanding. Pt signed form and filed in chart. Pt provided with a copy of signed DAVID form. Patient had no further questions or concerns at this time. Discussed should pt need oxygen at [place], local in network DME companies, pt chose [employer]. Green sheet on chart for this.
--- NOTE | 2025-03-09 16:57 | PN_ITS ---
Subjective Subjective Patient seen and examined. She had no complaints. Her shortness of breath are not recurred and she had an uneventful night. Review of systems otherwise negative. She is on room air. She denies any chest pain, palpitations, dizziness, nausea or vomiting. Review of systems is otherwise negative. Objective Data Objective Data Vital Signs: Vital Signs Temp Pulse Resp BP Pulse Ox O2 Del Method O2 Flow Rate 98.0 F 69 16 128/57 H 92 Room Air 2 03/09/25 09:11 03/09/25 15:15 03/09/25 15:15 03/09/25 09:11 03/09/25 09:11 03/09/25 14:00 03/09/25 04:50 Oxygen Flow Rate (L/min) 2 Oxygen Delivery Method Room Air Weight: 174 lb 13.225 oz Body Mass Index (BMI) 33.0 Intake & Output: Intake and Output for Last 24 Hours 03/07/25 03/08/25 03/09/25 23:59 23:59 23:59 Intake Total 360 / 360 Output Total 300 / 300 Balance 60 / 60 Lab / Micro Data 03/09/25 05:43 03/09/25 05:43 Labs: Laboratory Results - last 24 hr 03/08/25 18:08: Troponin T Hi Sens 2 Hr 40 H 03/08/25 20:28: Phosphorus 3.3, Magnesium 1.6, Troponin T Hi Sens 4Hr 43 H, NT pro BNP II 2749 H, Procalcitonin 0.16 H 03/09/25 05:43: WBC 2.8 L, RBC 3.24 L, Hgb 11.7 L, Hct 35.1 L, MCV 108.3 H, MCH 36.1 H, MCHC 33.3, RDW Std Deviation 55.0 H, RDW Coeff of Martin 13.7, Plt Count 116 L, MPV 10.1, Immature Gran % (Auto) 0.400, Neut % (Auto) 60.4, Lymph % (Auto) 19.8, [place] % (Auto) 15.1 H, Eos % (Auto) 3.6, Baso % (Auto) 0.7, Absolute Neuts (auto) 1.7 L, Absolute Lymphs (auto) 0.55 L, Nucleated RBC % 0, Sodium 140, Potassium 3.9, Chloride 105, Carbon Dioxide 25.1, Anion Gap 11, BUN 8, Creatinine 0.80, Estim Creat Clear Calc 61.50, Est GFR (MDRD) Non-Af 79, BUN/Creatinine Ratio 10.5, Glucose 90, Calcium 9.2, Total Bilirubin 0.43, AST 29, ALT 13, Alkaline Phosphatase 93, Total Protein 5.4 L, Albumin 3.4, Globulin 2.0 L, Albumin/Globulin Ratio 1.7, Triglycerides 93, Cholesterol 182, LDL Cholesterol, Calc 92, VLDL Cholesterol 19, HDL Cholesterol 72, Cholesterol/HDL Ratio 2.54, TSH 1.460 Micro: Microbiology 03/08/25 22:50 Mucosa - Nasopharyngeal Respiratory Panel (PCR) - Final Radiography Diagnostic Testing: Radiology Impression Chest CTA 03/08/25 16:06 IMPRESSION: 1. No pulmonary embolism. 2. Right middle lobe atelectasis. Opacification of several right middle lobe subsegmental bronchi. 3. Mosaic attenuation of the bilateral lungs, nonspecific. Etiologies include underlying infection or small airway disease, among other etiologies. 4. Right lower lobe solid pulmonary nodule measuring up to 1.4 cm. Reading Location: [facility] Echocardiogram 03/08/25 21:29 Interpretation Summary The estimated ejection fraction is 55 %. Ordering Physician: Emely Bai Referring Physician: RUPALI MIRZA Performed By: Amber Lou RCS Rhythm Strip Rhythm Strip: Sinus Rhythm Rate: 62 Ectopy: None Physical Exam Const alert, oriented x3, no apparent distress and well nourished General Appearance: cooperative HEENT normocephalic, head/scalp atraumatic, moist oral mucous membranes and oropharynx normal Neck supple Lymph Lymphatic: no lymphedema noted Resp Resp Narrative: mildly diminished breath sounds bibasally, no wheezes or crackles. On room air. Cardio regular rate, regular rhythm, S1 normal heart sound, S2 normal heart sound and no murmurs GI normal to inspection, nondistended, normoactive bowel sounds, soft to palpation and non-tender Extremity normal capillary refill, no clubbing, cyanosis or edema and no calf tenderness General Extremity: no tenderness to palpation of joints or extremities Skin General Skin Exam: no breakdown Neuro CN's II-XII intact bilaterally and no sensory deficits noted Motor Exam: general weakness Psych thought process normal and cooperative Appearance: appropriate Assessment & Plan Assessment/Plan (1) Cardiomyopathy: (2) Acute dyspnea: PLAN: Plan #Hypoxia * Patient was admitted with a complaint of shortness of breath after she had her radiation session for metastatic breast cancer. She said during the radiation her nostrils were usually blocked off and she was given something to breathe through her mouth. However this makes her very uncomfortable and she does not think she was able to breathe very well. * She therefore became short of breath and she was brought to the ED. EKG showed no acute ST changes and chest x-ray showed no acute cardiopulmonary pathology. * 2D echo done today did show EF of 55% which was similar to previous echoes. She had no regional wall motion abnormalities noted. * proBNP is elevated at 2749. Will diurese patient with IV Lasix. * If remains stable by tomorrow we will discharge her home. * CTA chest showed no evidence of PE and troponins were not elevated. She has a history of chemotherapy induced cardiomyopathy. * Breathing treatments bronchodilators. 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 Follows with [facility] oncology. * On anastrozole. Also on capecitabine and undergoing radiation. Per her oncologist to hold capecitabine and Tucatinib until 2 weeks to 3 weeks after radiation. * She was to have repeat echo in mid March with cardiology. On metoprolol and losartan as well as Lyrica for neuropathy. #Right lower lobe solid pulmonary nodule: As per CTA chest. It measured up to 1.4 cm. Unclear if this is new. Will need follow-up on outpatient basis for further evaluation as needed #Hypertension: On metoprolol, losartan. IV hydralazine as needed #Chronic thrombocytopenia: This is likely due to history of cancer. Will monitor #Class I obesity. BMI is 33.3. Complicates acute care, aspect of recovery and prognosis. DVT prophylaxis: Lovenox CODE STATUS: DNR CCA with intubation. # Charges/Coding Visit Charges Inpatient E&M: 65195 Subs Hosp L2
[2025-03-09] MEDS: MELATONIN 3 MG TABLET PO (22:19)
[2025-03-09] MEDS: 0.9% Saline Lock 10 ML Syringe IV (22:19)
[2025-03-10] VITALS (9 sets, daily range): BP systolic 88–118; BP diastolic 52–58; PULSE 62–77; RESP 14–17; TEMP 36.5–36.8; O2SAT 90–96; BMI 33.0
[2025-03-10 07:19] LABS: Hematocrit 37.6 % (37-47); Hemoglobin 12.6 g/dL (12.0-15.0); Immature Granulocytes Count 0.010 X10^3/uL (0.0-0.0); Mean Corp Hgb Conc 33.5 g/dL (32-36); Mean Corpuscular Volume 106.2 fL (81-99); Mean Platelet Vol. 9.8 fl (6.2-12.0); NRBC Flagged by Analyzer 0 % (0-5); Platelet Count 126 K/mm3 (150-450); RBC Distribution Width CV 13.9 % (11.6-14.6); RBC Distribution Width SD 55.2 fl (35.1-43.9); Red Blood Count 3.54 M/mm3 (4.2-5.4); White Blood Count 3.9 K/mm3 (4.4-11.0)
[2025-03-10 08:00] LABS: Anion Gap 12 (5-15); BUN 14 mg/dL (4-19); BUN/Creat Ratio 14.6 RATIO (10-20); Calcium,Total 9.8 mg/dL (7.6-11.0); Carbon Dioxide 28.5 mmol/L (21.0-32.0); Chloride 100 mmol/L (98-108); Estimated Creatinine Clearance 51.22 ml/min (50-250); Glucose 88 mg/dL (70-99); Potassium 3.6 mmol/L (3.3-5.1)
[2025-03-10] MEDS: 0.9% Normal Saline (500mL Bag) 500 ML 999 ML IV (09:50)
--- NOTE | 2025-03-10 13:52 | PCM.DC ---
Discharge Instructions DC O2, CPAP, BIPAP needs Home O2 Discharge instructions: No Dressing / Incision Discharge Activity: Return to Normal Activity Weight Bearing Status: Weight bearing as tolerated Dressing / Incision Call your doctor if you observe: Fever of 101 or Higher, Shortness of breath, Dizziness, Swelling in the ankles and Chest pain Follow Up Care Test Results: Test results from this visit will be discussed in further detail at your follow-up appointment, if applicable. Discharge Plan Admission Admit Date/Time: 03/09/25 17:35 Primary Reason for Your Visit: shortness of breath Attending Provider: Cata Rose Primary Care Provider: Diane Baird Consulting Providers: Emely Bai Instructions Patient Instructions: ED Dyspnea Additional Instructions / Restrictions: BP meds-losartan and metoprolol discontinued due to hypotension. Keep a blood pressure log at home. Review with your PCP to determine whether blood pressure medications to be resumed or otherwise. Discharge Orders/Prescriptions Prescriptions: Continued pregabalin 150 mg capsule 150 mg PO BID naproxen sodium 220 MG capsule 220 mg PO Q8H PRN PRN (Reason: Pain Or Fever) multivitamin Tablet 1 tab PO DAILY diphenhydramine HCl [Benadryl] 25 mg capsule 25 mg PO QHS acetaminophen 500 mg capsule 500 mg PO .COMPLEX Rx Instructions: 500 mg orally; pt takes one tab in the morning and two tabs (1000mg) at night lorazepam 0.5 mg tablet 0.5 mg PO Q12H PRN (Reason: anxiety) promethazine 25 mg tablet 25 mg PO Q6H PRN PRN (Reason: nausea) Discontinued metoprolol tartrate 25 mg tablet 25 mg PO BID losartan 100 mg tablet 100 mg PO DAILY Qty: 90 3RF Referrals / Follow Up: Eliot Billingsley MD [Non-Staff, Family Practice] - Within 1 Week Diane Baird, HEAD BATCHER-C [Primary Care Provider, Family Practice] Disposition Disposition (needs filled in before D/C Order can be placed): Home, Self Care
--- NOTE | 2025-03-10 13:54 | DS.PCM_ITS ---
Providers Date of Admission: 03/09/25 Date of Discharge: 03/10/25 Primary Care Physician: Diane Baird, KARIN-C Reason For Visit: INDETERM TROP, DYSPNEA Diagnosis Discharge Diagnosis (1) Cardiomyopathy: Status: Acute Code(s): I42.9 - Cardiomyopathy, unspecified (2) Acute dyspnea: Status: Acute Code(s): R06.00 - Dyspnea, unspecified Plan #Hypoxia * Patient was admitted with a complaint of shortness of breath after she had her radiation session for metastatic breast cancer. She said during the radiation her nostrils were usually blocked off and she was given something to breathe through her mouth. However this makes her very uncomfortable and she does not think she was able to breathe very well. * She therefore became short of breath and she was brought to the ED. EKG showed no acute ST changes and chest x-ray showed no acute cardiopulmonary pathology. * 2D echo done today did show EF of 55% which was similar to previous echoes. She had no regional wall motion abnormalities noted. * proBNP is elevated at 2749. Will diurese patient with IV Lasix. * If remains stable by tomorrow we will discharge her home. * CTA chest showed no evidence of PE and troponins were not elevated. She has a history of chemotherapy induced cardiomyopathy. * Breathing treatments bronchodilators. 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 Follows with [facility] oncology. * On anastrozole. Also on capecitabine and undergoing radiation. Per her oncologist to hold capecitabine and Tucatinib until 2 weeks to 3 weeks after radiation. * She was to have repeat echo in mid March with cardiology. On metoprolol and losartan as well as Lyrica for neuropathy. #Right lower lobe solid pulmonary nodule: As per CTA chest. It measured up to 1.4 cm. Unclear if this is new. Will need follow-up on outpatient basis for further evaluation as needed #Hypertension: On metoprolol, losartan. IV hydralazine as needed #Chronic thrombocytopenia: This is likely due to history of cancer. Will monitor #Class I obesity. BMI is 33.3. Complicates acute care, aspect of recovery and prognosis. DVT prophylaxis: Lovenox CODE STATUS: DNR CCA with intubation. # Medications at Discharge Home Medications naproxen sodium 220 mg capsule 220 mg PO Q8H PRN PRN Pain Or Fever 03/29/19 pregabalin 150 mg capsule 150 mg PO BID 09/15/21 multivitamin 1 tab PO DAILY 11/26/22 diphenhydramine HCl 25 mg capsule (Benadryl) 25 mg PO QHS 02/16/23 acetaminophen 500 mg capsule 500 mg PO .COMPLEX 02/17/23 lorazepam 0.5 mg tablet 0.5 mg PO Q12H PRN anxiety 03/08/25 promethazine 25 mg tablet 25 mg PO Q6H PRN PRN nausea 03/08/25 Hospital Course Operations None Procedures 2-D Echocardiogram Summary of Care Provided Minutes Spent on Discharge: 45 Hospital Course: Patient is a 69-year-old female with a past medical history as outlined including right-sided breast cancer with mets to the bone and lung and status post right mastectomy and lumpectomy who was admitted to the ED on 03/08/2025 with a complaint of shortness of breath. Patient has a history of chemotherapy- induced cardiomyopathy and follows with cardiology. She is also currently having radiation. She went for her radiation session on the day of admission and started having shortness of breath. According to patient her nostrils are sealed off during the chemotherapy and she is giving advised to breathe on through her mouth. However she finds this uncomfortable and so subsequently became short of breath. Her saturation was as low as 73% on room air. She does not wear any oxygen at home. She denied any fever or chills or chest pain or cough. She also complained of loose stools. She was brought to the ED where she was saturating at 92% on room air. CTA of the chest showed no evidence of PE. Initial troponin was 19 and trended up slightly to 40. The CTA showed mosaic attenuation's in the bilateral lungs which are nonspecific and possibly infectious versus more airway disease and a right lower lobe pulmonary nodule measuring up to 1.4 cm. EKG showed normal sinus rhythm with no acute ST changes. Her BNP was slightly elevated. She was admitted and managed for hypoxia of unclear etiology in the setting of chemotherapy induced cardiomyopathy. Her shortness of breath spontaneously resolved. Respiratory panel was negative. Of note hospital course was complicated by hypotension. Her losartan and metoprolol were held. She was hydrated with IV fluids and blood pressure did come up. However she still remained on the lower limit of normal and blood pressure was 104/58 at time of discharge. However patient says she felt well and insisted on going home. Her losartan and metoprolol were therefore discontinued in light of the hypotension. She is to follow-up with her primary care doctor and cardiology in light of her cardiomyopathy for these to be resumed at a much lower dose as deemed necessary. She did have 2D echo during this admission which showed EF of 55% with no regional wall abnormalities noted and no valvular abnormalities. Patient counseled that she will need to keep her blood pressure log at home and check her blood pressure every morning and evening and present the log to her PCP and burial needs salesperson within 1 week to determine whether blood pressure medications should be resumed. If her blood pressure went above 140 systolic prior to being seen by her PCP/burial needs salesperson, she should call her PCP and/or burial needs salesperson to determine if she should resume the medications. Patient seen and examined prior to discharge. She felt well and had no active complaints. She had an uneventful night. Review of systems otherwise negative. Labs and vitals reviewed. Home medication reviewed and reconciled. Physical Exam Const alert, oriented x3, no apparent distress and well nourished General Appearance: cooperative and comfortable Orientation / Consciousness: awake HEENT normocephalic, head/scalp atraumatic, hearing grossly normal bilaterally, moist oral mucous membranes and oropharynx normal Mouth: oral and palatal mucosa normal Neck supple Lymph Lymphatic: no lymphedema noted Resp Resp Narrative: mildly diminished breath sounds bibasally, no wheezes or crackles. On room air. Cardio regular rate, regular rhythm, S1 normal heart sound, S2 normal heart sound and no murmurs GI normal to inspection, nondistended, normoactive bowel sounds, soft to palpation and non-tender Extremity normal capillary refill, no clubbing, cyanosis or edema and no calf tenderness General Extremity: no tenderness to palpation of joints or extremities Skin no rashes or lesions noted General Skin Exam: no breakdown Neuro oriented x3, CN's II-XII intact bilaterally and no sensory deficits noted Sensorium / Orientation: awake and alert Motor Exam: general weakness Psych thought process normal and cooperative Appearance: appropriate Weight / BMI Weight Weight: 174 lb 9.698 oz Body Mass Index (BMI) 33.0 ABG / Lab / Microbiology Data 03/10/25 06:24 03/10/25 06:24 Laboratory: Laboratory Results - last 24 hr 03/10/25 06:24: WBC 3.9 L, RBC 3.54 L, Hgb 12.6, Hct 37.6, MCV 106.2 H, MCH 35.6 H, MCHC 33.5, RDW Std Deviation 55.2 H, RDW Coeff of [place] 13.9, Plt Count 126 L, MPV 9.8, Immature Gran % (Auto) 0.300, Neut % (Auto) 68.6, Lymph % (Auto) 15.8 L , [place] % (Auto) 12.5 H, Eos % (Auto) 2.5, Baso % (Auto) 0.3, Absolute Neuts (auto) 2.7, Absolute Lymphs (auto) 0.62 L, Nucleated RBC % 0, Sodium 141, Potassium 3.6, Chloride 100, Carbon Dioxide 28.5, Anion Gap 12, BUN 14, Creatinine 0.96, Estim Creat Clear Calc 51.22, Est GFR (MDRD) Non-Af 63, BUN/Creatinine Ratio 14.6, Glucose 88, Calcium 9.8 Microbiology: Microbiology 03/08/25 22:50 Mucosa - Nasopharyngeal Respiratory Panel (PCR) - Final Radiography Diagnostic Testing: Radiology Impression Echocardiogram 03/08/25 21:29 Interpretation Summary The estimated ejection fraction is 55 %. Ordering Physician: Emely Bai Referring Physician: DIANE BAIRD Performed By: Amber Lou RCS D/C Instructions Discharge Activity: Return to Normal Activity Weight Bearing Status: Weight bearing as tolerated Call your doctor if you observe: Fever of 101 or Higher, Shortness of breath, Dizziness, Swelling in the ankles and Chest pain DC O2, CPAP, BIPAP Needs Home O2 Discharge instructions: No DC home with Oxygen: No Meaningful Use Info Meaningful Use Meaningful Use Diagnoses (Choose all that apply): None applicable Discharge Plan Admission Admit Date/Time: 03/09/25 17:35 Primary Reason for Your Visit: shortness of breath Attending Provider: Cata Rose Primary Care Provider: Diane Baird Consulting Providers: Emely Bai Instructions Patient Instructions: ED Dyspnea Additional Instructions / Restrictions: BP meds-losartan and metoprolol discontinued due to hypotension. Keep a blood pressure log at home; check and document BP every morning and evening. Review with your PCP to determine whether blood pressure medications to be resumed or otherwise. Discharge Orders/Prescriptions Prescriptions: Continued pregabalin 150 mg capsule 150 mg PO BID naproxen sodium 220 MG capsule 220 mg PO Q8H PRN PRN (Reason: Pain Or Fever) multivitamin Tablet 1 tab PO DAILY diphenhydramine HCl [Benadryl] 25 mg capsule 25 mg PO QHS acetaminophen 500 mg capsule 500 mg PO .COMPLEX Rx Instructions: 500 mg orally; pt takes one tab in the morning and two tabs (1000mg) at night lorazepam 0.5 mg tablet 0.5 mg PO Q12H PRN (Reason: anxiety) promethazine 25 mg tablet 25 mg PO Q6H PRN PRN (Reason: nausea) Discontinued metoprolol tartrate 25 mg tablet 25 mg PO BID losartan 100 mg tablet 100 mg PO DAILY Qty: 90 3RF Referrals / Follow Up: Eliot Billingsley MD [Non-Staff, Family Practice] - Within 1 Week Diane Baird NP-C [Primary Care Provider, Family Practice] Disposition Disposition (needs filled in before D/C Order can be placed): Home, Self Care Charges/Coding Visit Charges Inpatient E&M: 51907 Disch Hosp >30min
== END 2025-03-10 14:55 | disposition home or self-care (01) | DRG 315 ==
LOC: ED 20:35 → PCU 20:54
PROVIDERS: Admitting Provider Family Medicine; Emergency Provider Emergency Medicine; PCP Nurse Practitioner Family; Visit Provider Student in an Organized Health Care Education/Training Program
DX: I42.7 Cardiomyopathy due to drug and external agent (principal); C78.01 Secondary malignant neoplasm of right lung; C78.7 Secondary malignant neoplasm of liver and intrahepatic bile duct; C78.02 Secondary malignant neoplasm of left lung; J98.11 Atelectasis; Z66 Do not resuscitate; I12.9 Hypertensive chronic kidney disease with stage 1 through stage 4 chronic kidney disease, or unspecified chronic kidney disease; D69.6 Thrombocytopenia, unspecified; E66.811 Obesity, class 1; C50.311 Malignant neoplasm of lower-inner quadrant of right female breast; N18.2 Chronic kidney disease, stage 2 (mild); T45.1X5A Adverse effect of antineoplastic and immunosuppressive drugs, initial encounter; Z80.8 Family history of malignant neoplasm of other organs or systems; Z85.3 Personal history of malignant neoplasm of breast; Z68.33 Body mass index [BMI] 33.0-33.9, adult; Z79.891 Long term (current) use of opiate analgesic; Z82.49 Family history of ischemic heart disease and other diseases of the circulatory system; G62.0 Drug-induced polyneuropathy; Z51.11 Encounter for antineoplastic chemotherapy; Z90.11 Acquired absence of right breast and nipple
CPT/HCPCS: 36415; 71275; 80048; 80053; 80061; 83735; 83880; 84100; 84145; 84443; 84484; 85025; 85610; 85730; 87633; 93005; 93308; 94640; 94668; 97161; 99285; Q9957; Q9967; A4216; J1938